=== PATIENT | male | born 1950 | race Caucasian/White ===

== ENCOUNTER 2023-05-15 06:54 | Outpatient (OUT) | payer MEDICARE, OTHER, SELFPAY ==
[2023-05-15 07:16] LABS: Basophils Absolute Auto 0.1 10^3/uL (0.0-0.1); Basophils Percent Auto 0.7 % (0.2-2.0); Eosinophils Absolute Auto 0.2 10^3/uL (0.0-0.7); Eosinophils Percent Auto 2.7 % (0.9-7.0); Hematocrit 51.1 % (42.0-54.0); Hemoglobin 16.5 g/dL (14.0-18.0); Immature Granulocytes Abs Auto 0.07 10^3/uL (0.00-0.03); Lymphocytes Absolute Auto 2.1 10^3/uL (1.2-3.8); Lymphocytes Percent Auto 29.3 % (20.5-60.0); Mean Corpuscular HGB Conc 32.3 g/dL (29.9-35.2); Mean Corpuscular Hemoglobin 29.5 pg (25.9-34.0); Mean Corpuscular Volume 91.4 fL (80.0-94.0); Mean Platelet Volume 9.8 fL (9.5-13.5); Monocytes Absolute Auto 0.7 10^3/uL (0.3-0.8); Monocytes Percent Auto 9.1 % (1.7-12.0); Neutrophils Absolute Auto 4.1 10^3/uL (1.4-6.5); Neutrophils Percent Auto 57.2 % (43.0-75.0); Platelet Count 157 10^3/uL (150-450); Red Blood Count 5.59 10^6/uL (4.70-6.10); Red Cell Distribution Width 12.9 % (11.0-15.0); White Blood Count 7.1 10^3/uL (4.0-11.0)
[2023-05-15 10:03] LABS: Alanine Aminotransferase 19 U/L (16-63); Albumin Level 3.5 g/dL (3.4-5.0); Alkaline Phosphatase 56 U/L (46-116); Anion Gap 14.1; Aspartate Amino Transferase 12 U/L (15-37); BUN Creatinine Ratio 18.8; Bilirubin Total 0.2 mg/dL (0.2-1.0); Calcium 8.7 mg/dL (8.5-10.1); Carbon Dioxide 24.2 mmol/L (21.0-32.0); Chloride 104 mmol/L (98-107); Chol HDL Ratio 5.1; Cholesterol 162 mg/dL (<=200); Estimated GFR (African America 58 (>=60); Estimated GFR (Non-African Ame 48 (>=60); Globulin 3.4 g/dL; Glucose 124 mg/dL (74-106); HDL Cholesterol 32 mg/dL (40-60); Potassium 4.3 mmol/L (3.5-5.1); Sodium 138 mmol/L (136-145); Total Protein 6.9 g/dL (6.4-8.2); Triglycerides 129 mg/dL (<=150); VLDL CHOLESTEROL 25.8 mg/dL
== END 2023-05-15 06:55 | disposition home or self-care (01) ==
LOC: LAB 07:01
PROVIDERS: PCP Family Medicine; Visit Provider Family Medicine
DX: I73.9 Peripheral vascular disease, unspecified (principal); E78.5 Hyperlipidemia, unspecified; I11.0 Hypertensive heart disease with heart failure; I50.30 Unspecified diastolic (congestive) heart failure
CPT/HCPCS: 36415; 80053; 80061; 83880; 85025

== ENCOUNTER 2023-05-27 13:38 | Outpatient (OUT) | payer MEDICARE, OTHER, SELFPAY ==
--- NOTE | 2023-05-27 15:21 | PM.CN ---
Consult Note: HPI Data of Consult Patient: new to practice Consult date: 05/27/23 Requesting Physician: Urvashi Rawls MD Primary Care Provider: Jaron Chester MD Consult Narrative Reason for consult: Low back pain, bilateral lower extremity pain and weakness Narrative: this is a pleasant 73-year-old gentleman who presents for evaluation. He notes long-standing low back pain that is ongoing for several years, as well as increasing pain and weakness that radiates into his bilateral lower extremity. He underwent a CT scan of the lumbar spine, which is significant for multiple levels of moderate to severe stenosis, particularly at L2-L3, L4-L5, and L5-S1. There are multiple levels of moderate to severe degenerative disc disease and facet arthropathy noted. He engages in a course of provider directed home exercises, which she has completed for greater than three months. He has tried various medications, including Tylenol and gabapentin for over three months, but this has not provided much relief. 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 He denies adverse medication side effects or loss of bowel or bladder control. cc:: CC: Urvashi Rawls MD Review of Systems ROS Status of ROS 10 or more systems reviewed and unremarkable except as noted in history and below Exam Constitutional Common normals: no apparent distress, oriented x3 and healthy appearing Respiratory Common normals: normal respiratory effort Effort & inspection: able to speak in complete sentences Back & Pelvis Other: tenderness to palpation through out the lumbar spine and paraspinal musculature. Pain is elicited with flexion, extension, and lateral rotation of the lumbar spine. Facet loading maneuvers are positive bilaterally. Strength noted to be unremarkable throughout the bilateral lower extremities except for decreased strength rated at four out of five in the bilateral quadriceps, anterior tibialis. Sensation noted to be unremarkable throughout the bilateral lower extremities except for dysesthesia on the bilateral L2, L3, L4, L5 dermatomal distributions. Coordination remains intact. Gait remains nonantalgic. Extremity Common normals: normal to inspection Neuro Common normals: oriented x3, CN's II-XII intact bilaterally and no focal motor deficits Psych Common normals: mental status grossly normal and cooperative Assessment and Plan Assessment and Plan (1) Lumbar stenosis with neurogenic claudication: (2) Lumbar spondylosis: Plan this is a pleasant 73-year-old gentleman who presents for evaluation. He has failed physical and medical modalities, as listed above. Imaging was reviewed, as noted above. She describes quite classic neurogenic claudication, and his woorkup for vascular claudication has thus far been negative. At this point, given his symptomatology and imaging findings, it is prudent to attempt bilateral L5 transforaminal epidural steroid injections. Depending on his response, he may even benefit from bilateral L2-L3 transforaminal epidural steroid injections. He is in agreement with this plan. He may be a candidate for lumbar medial branch blocks at some point in the future. Medications were reviewed, and no changes were made at this time. He will follow-up after the procedure is completed.
== END 2023-05-27 13:39 | disposition home or self-care (01) ==
LOC: PM 13:38
PROVIDERS: PCP Family Medicine; Visit Provider Anesthesiology
DX: M47.816 Spondylosis without myelopathy or radiculopathy, lumbar region (principal); M48.062 Spinal stenosis, lumbar region with neurogenic claudication; M54.50 Low back pain, unspecified
CPT/HCPCS: G0463

== ENCOUNTER 2023-05-28 12:39 | Outpatient (OUT) | payer MEDICARE, OTHER, SELFPAY ==
--- NOTE | 2023-05-28 14:06 | CA_ITS ---
[facility] Test Date: 2023-05-28 Pat Name: MOUSTAPHA MAC Department: Room: - Gender: Male [employer] Machine: : 1950 Requested By: [id number] Order Number: [id number] Reading MD: CÉSAR GOODWIN Interpretive Statements Monophasic doppler waveform in LLE PVR waveforms with delayed upstroke, blunted amplitude and loss of dicrotic notch in the LLE. Impression: - significant lower extremity arterial disease with mild hemodynamic impairment in the B/L lower extremities. (right SAGAR 0.89, left SAGAR 0.87) - abnormal response to exercise with left > right Electronically Signed On 05-29-2023 7:08:48 EDT by CÉSAR GOODWIN
--- NOTE | 2023-05-28 14:06 | CA_ITS ---
Patient: MOUSTAPHA MAC Exam Date: 05/28/2023 : 1950 Gender:M Ordering : MAJOR HARRISON Admission #: [id number] Family : DR Silvalas Henrik . Order #: [id number] CLICK HERE TO VIEW EXAM ECHOCARDIOGRAM REPORT PROCEDURE: CA ECHO DOPPLER COMPLETE INDICATIONS: Abnormal EKG, edema, pacemaker, hypertension COMPARISON: None. DESCRIPTION: COMPLETE ECHOCARDIOGRAM Real-time transthoracic echocardiography with 2D, M-mode, spectral and color flow Doppler performed. QUALITY: Technical quality was limited. LEFT VENTRICLE: Normal chamber size. Proximal septal hypertrophy (sigmoid septum). Normal systolic function. LV EF: Normal left ventricular ejection fraction, (>55%). DIASTOLIC: Normal diastolic function. ATRIAL SEPTUM: Visually appears intact. LEFT ATRIUM: Normal chamber size. RIGHT ATRIUM: Normal chamber size. RIGHT VENTRICLE: Normal chamber size. Normal systolic function. Pacer wire present. TRICUSPID VALVE: Normal mobility and thickness. No stenosis with trivial regurgitation. No evidence of pulmonary hypertension. RVSP 33 mmHg MITRAL VALVE: Normal mobility and thickness. No evidence of mitral valve stenosis. Mild mitral annular calcification. No mitral regurgitation. AORTIC VALVE: Normal trileaflet appearance. Mildly calcified aortic valve. Mildly diminished mobility. No evidence of aortic valve stenosis. DVI 0.7 No aortic regurgitation. AORTIC ROOT: Normal diameter and appearance. PULMONIC VALVE: Normal thickness and mobility. No stenosis. Trivial regurgitation. PERICARDIUM: No evidence of pericardial effusion. IVC: Collapses with inspirations. PLEURA: CONCLUSION: 1. Normal ventricular systolic function. LVEF is 55 to 60%. 2. No significant valvular dysfunction. 3. Normal right-sided pressures. 4. No pericardial effusion. Adult Echocardiography Procedure Report Left Ventricle LVEDD (3.7 - 5.6 cm): 4.62 cm LVESD (2.2 - 4.0 cm): 2.94 cm LVIVS thickness (0.6 - 1.2 cm): 1.47 cm LVPW thickness (0.5 - 1.0 cm): 1.15 cm e': 0.10 m/s E - e': 4.83 LVOT Max Gradient: 4.03 mm[Hg] LVOT Area (cm2): 1.00 m/s Peak Velocity (LVOT): 1.00 m/s Mean Velocity (LVOT): 0.74 m/s LVOT Diameter 2.60 cm Left Atrium Left Atrium Systolic Dimension: 3.92 cm Mitral Valve MV E to A Ratio: 0.61 Mitral Valve A-Wave Peak Velocity: 0.76 m/s Mitral Valve E-Wave Peak Velocity: 0.46 m/s Right Ventricle Aorta AO Root Diam: 3.96 cm Ascending Ao Diam: 3.19 cm Aortic Valve AoV Area (Peak Ole): 3.56 cm2, 3.56 cm2 AoV Area (VTI): 4.21 cm2, 4.21 cm2 Peak Velocity(Antegrade Flow): 1.50 m/s Peak Gradient(Antegrade Flow): 9.03 mm[Hg] Mean Velocity(Antegrade Flow): 0.96 m/s Mean Gradient(Antegrade Flow): 4.23 mm[Hg] Velocity Time Integral: 25.75 cm Tricuspid Valve Peak Velocity (Regurgitant Flow): 2.72 m/s Pulmonic Valve Peak Velocity: 0.82 m/s Peak Gradient: 2.91 mm[Hg], 2.49 mm[Hg] Right Atrium Right Atrium Systolic Pressure: 38.87 ml, 38.87 ml Dictated by: Shawn Madden M.D. on 05/30/2023 at 18:40 Approved by: Shawn Madden M.D. on 05/30/2023 at 18:43
== END 2023-05-28 12:40 | disposition home or self-care (01) ==
LOC: CARD 12:39
PROVIDERS: PCP Family Medicine; Visit Provider Internal Medicine Cardiovascular Disease
DX: I73.9 Peripheral vascular disease, unspecified (principal); R60.9 Edema, unspecified; R94.31 Abnormal electrocardiogram [ECG] [EKG]; I10 Essential (primary) hypertension
CPT/HCPCS: 93306; 93924

== ENCOUNTER 2023-06-10 09:31 | Day surgery (SDC) | payer MEDICARE, OTHER, SELFPAY ==
[2023-06-10 10:11] VITALS: BP 152/95; PULSE 77; RESP 14; TEMP 36.5; O2SAT 96
[2023-06-10] MEDS: IOHEXOL 240 MG/ML - 10 ML VIAL INJ (10:53)
[2023-06-10] MEDS: LIDOCAINE HCL 2% PF 100 MG/5 ML VIAL INJ (10:53)
[2023-06-10] MEDS: BUPIVACAINE HCL 0.25% PF 25 MG/10 ML VIAL INJ (10:53)
[2023-06-10] MEDS: TRIAMCINOLONE ACETONIDE 40 MG/ML VIAL INJ (10:54)
--- NOTE | 2023-06-10 10:56 | P.ON_ITS ---
Date of procedure: 06/10/23 Pre-op diagnosis: Lumbar stenosis with neurogenic claudication Post-op diagnosis: same Procedure: Procedure: Bilateral L5-S1 transforaminal epidural steroid injection Medications: Bupivacaine 0.25% 2cc, lidocaine 1% 1cc, kenalog 80mg The patient was seen and examined in the preoperative holding area.? Informed consent was obtained and placed on the chart.? Patient was brought to the medical procedure unit and placed in the prone position where a timeout was completed verifying the correct patient, procedure site, position, and planned special equipment using sterile aseptic technique.? Under direct fluoroscopic visualization a 25-gauge Quincke tipped spinal needle was advanced at level left L5-S1 to the designated neural foramen where contrast dye was injected to show adequate spread.? There was no evidence of vascular or adverse uptake.? Epidural spread was appreciated.? The above-mentioned injectate was then placed in a 1.5 mL aliquot preceded by negative aspiration.? The needle was removed. The same procedure, at the same level, was completed on the opposite side. ? Patient was taken to the postprocedural recovery area and monitored for an appropriate length of time before found suitable for discharge in the accompaniment of a r esponsible adult. Anesthesia: None Surgeon: Urvashi Rawls Pathology: none sent Condition: stable Disposition: no change
[2023-06-10 14:21] VITALS: BP 158/91; BP 159/89; PULSE 69; PULSE 72; RESP 18; O2SAT 95; O2SAT 96
== END 2023-06-10 11:06 | disposition home or self-care (01) ==
PROVIDERS: PCP Family Medicine; Visit Provider Anesthesiology
DX: M48.062 Spinal stenosis, lumbar region with neurogenic claudication (principal)
CPT/HCPCS: 64483; Q9966

== ENCOUNTER 2023-06-24 09:24 | Day surgery (SDC) | payer MEDICARE, OTHER, SELFPAY ==
[2023-06-24 10:13] VITALS: BP 149/94; PULSE 76; RESP 16; TEMP 36.4; O2SAT 95
[2023-06-24] MEDS: 0.9 % SODIUM CHLORIDE 10 ML INJ (10:47)
[2023-06-24] MEDS: BUPIVACAINE HCL 0.25% PF 25 MG/10 ML VIAL INJ (10:47)
[2023-06-24] MEDS: IOHEXOL 240 MG/ML - 10 ML VIAL INJ (10:48)
[2023-06-24] MEDS: DEXAMETHASONE SODIUM PHOSPHATE 10 MG/ML VIAL INJ (10:48)
[2023-06-24] MEDS: LIDOCAINE HCL 2% PF 100 MG/5 ML VIAL INJ (10:48)
--- NOTE | 2023-06-24 10:50 | W.PM.PROCNOT ---
Date of procedure: 06/24/23 Pre-op diagnosis: Lumbar stenosis with neurogenic claudication Post-op diagnosis: same as pre-op Procedure: Procedure: Bilateral L2-3 transforaminal epidural steroid injection Medications: Bupivacaine 0.25% 3cc, dexamethasone 10mg The patient was seen and examined in the preoperative holding area.? Informed consent was obtained and placed on the chart.? Patient was brought to the medical procedure unit and placed in the prone position where a timeout was completed verifying the correct patient, procedure site, position, and planned special equipment using sterile aseptic technique.? Under direct fluoroscopic visualization a 25-gauge Quincke tipped spinal needle was advanced at level left L2-3 to the designated neural foramen where contrast dye was injected to show adequate spread.? There was no evidence of vascular or adverse uptake.? Epidural spread was appreciated.? The above-mentioned injectate was then placed in a 1.5 mL aliquot preceded by negative aspiration.? The needle was removed. The same procedure, at the same level, was completed on the opposite side. ? Patient was taken to the postprocedural recovery area and monitored for an appropriate length of time before found suitable for discharge in the accompaniment of a responsible adult. Anesthesia: None Surgeon: Urvashi Rawls Pathology: none sent Condition: stable Disposition: no change
[2023-06-24 14:29] VITALS: BP 152/71; BP 176/90; PULSE 63; PULSE 64; RESP 16; RESP 20; O2SAT 96
== END 2023-06-24 10:57 | disposition home or self-care (01) ==
PROVIDERS: PCP Family Medicine; Visit Provider Anesthesiology
DX: M48.062 Spinal stenosis, lumbar region with neurogenic claudication (principal)
CPT/HCPCS: 64483; J1100; Q9966

== ENCOUNTER 2023-07-11 13:46 | Outpatient (OUT) | payer MEDICARE, OTHER, SELFPAY ==
--- NOTE | 2023-07-11 14:09 | PM.CN ---
Consult Note: HPI Data of Consult Patient: known to practice within the last 3 years Requesting Physician: Urvashi Rawls MD Primary Care Provider: Jaron Chester MD Consult Narrative Reason for consult: Bilateral L2-3 transforaminal epidural steroid injection f/u Narrative: Brian Oneal a pleasant 73 year old male presents for evaluation of chronic low back pain with radiculopathy. AVNI provided good pain relief 80-90%, patient still feels pain can be improved. cc:: CC: Urvashi Rawls MD Review of Systems ROS Status of ROS 10 or more systems reviewed and unremarkable except as noted in history and below Musculoskeletal Reports: back pain and joint pain PFSH PFS Medical History (Updated 07/11/23 @ 14:25 by Gisele Rodriguez NP) Surgical History Meds Home Medications and Allergies Home Medications Medication Instructions Recorded Confirmed Type amlodipine 5 mg tablet 5 mg PO .QD 05/27/23 06/24/23 History aspirin 81 mg tablet,delayed 81 mg PO .QD 05/27/23 06/24/23 History release atorvastatin 40 mg tablet 40 mg PO .QD 05/27/23 06/24/23 History gabapentin 100 mg capsule 100 mg PO .HS 05/27/23 06/24/23 History tizanidine 4 mg tablet 8 mg PO .HS 05/27/23 06/24/23 History Allergies Allergy/AdvReac Type Severity Reaction Status Date / Time Z PACK Allergy Uncoded 05/27/23 15:37 Exam Constitutional Documenting provider has reviewed patient's vital signs: yes Common normals: no apparent distress, oriented x3, healthy appearing, alert and well nourished General appearance: cooperative [facility] Common normals: normocephalic, hearing grossly normal bilaterally and moist oral mucous membranes Head and scalp: normocephalic Eye Common normals: PERRL Pupil: PERRL Neck & C-Spine Common normals: full ROM General: normal visual inspection Chest Common normals: inspection of chest normal Respiratory Common normals: normal respiratory effort, no retractions and no use of accessory muscles Back & Pelvis Thoracic spine/upper back: ROM limited Lumbar spine/lower back: ROM limited, pain with ROM (mild), straight leg raise negative bilaterally and other soft tissue findings (surgical scars) Sacroiliac joints: SI joints normal Other: radicular pain from right SIJ and radiates down lateral thigh to foot, intermittent. symptoms greatly improved since AVNI Extremity Common normals: normal to inspection, full ROM, no calf tenderness and no pedal edema Neuro Common normals: oriented x3, CN's II-XII intact bilaterally, moves all extremities, no focal motor deficits, no sensory deficits noted and deep tendon reflexes 2+ bilaterally Sensorium/orientation: alert Motor exam: strength 5/5 throughout and no movement abnormalities noted Psych Common normals: mental status grossly normal, thought process normal, cooperative, affect normal, speech normal and activity/motor behavior normal Speech: normal speech Thought process: normal thought process Results Additional Findings Additional findings: I have checked an OARRS report on this patient today and there are no aberrancies noted in the prescribing history.?? A drug screen was completed and reviewed within the last year, and if there has not been a drug screen completed we ordered one today to monitor higher risk, state monitored pain medication use. As part of providing excellent, safe, comprehensive care, the following was completed at our patient's visit: 1. A medication reconciliation and review to ensure accurate knowledge of current/active medications, including asking our patients to inform us about any [id number] medications or herbal remedies/nutritional supplements/alternative remedies. 2. A review to specifically ensure our patients have had annual screening for: elevated body mass index (BMI), tobacco use, screening for depression, and screening for unhealthy alcohol use. When screening is concerning, patients are provided with education and the specific recommendation to discuss the concerning health issue and treatment options with their primary care provider. AHMET 6% Assessment and Plan Assessment and Plan (1) Lumbar stenosis with neurogenic claudication: (2) Lumbar spondylosis: (3) Osteoarthritis: Plan AVNI provided good pain relief 80-90%, patient still feels pain can be improved. Based on physical exam would not benefit from lumbar RFAs at this time, negative for sacroiliitis. Will start mobic 7.5mg/day and continue tizanidine 8mg HS, continue gabapentin 100mg HS through PCP could benefit from dose increase. f/u 2 months
== END 2023-07-11 13:47 | disposition home or self-care (01) ==
LOC: PM 13:46
PROVIDERS: PCP Family Medicine; Visit Provider Anesthesiology
DX: M47.816 Spondylosis without myelopathy or radiculopathy, lumbar region (principal); M48.062 Spinal stenosis, lumbar region with neurogenic claudication; M19.90 Unspecified osteoarthritis, unspecified site
CPT/HCPCS: G0463

== ENCOUNTER 2023-09-05 13:47 | Outpatient (OUT) | payer MEDICARE, OTHER, SELFPAY ==
--- NOTE | 2023-09-05 14:17 | P.CN_ITS ---
Consult Note: HPI Data of Consult Patient: known to practice within the last 3 years Requesting Physician: Gisele Rodriguez NP Primary Care Provider: Jaron Chester MD Consult Narrative Reason for consult: f/u Narrative: Brian Oneal a pleasant 73 year old male presents for evaluation and management of chronic low back pain with radiculopathy. Today rating pain 2/10, pain intensifies to 7-8/10 at times. Patient has noticed the L5 TFESI wearing off as his pain is now getting worse at time as well as increased radiculopathy. Patient would like to discuss repeating L5 TFESI. cc:: CC: Gisele Rodriguez NP Review of Systems ROS Status of ROS 10 or more systems reviewed and unremarkable except as noted in history and below Musculoskeletal Reports: back pain PFSH PFSH Medical History (Updated 09/05/23 @ 14:30 by Gisele Rodriguez NP) Former smoker ?Z87.891 - Personal history of nicotine dependence (ICD-10) Glaucoma ?H40.9 - Unspecified glaucoma (ICD-10) H/O prostate cancer ?Z85.46 - Personal history of malignant neoplasm of prostate (ICD-10) Hypertension ?I10 - Essential (primary) hypertension (ICD-10) Irregular heart beat ?I49.9 - Cardiac arrhythmia, unspecified (ICD-10) Low back pain ?M54.50 - Low back pain, unspecified (ICD-10) Numbness and tingling ?R20.0 - Anesthesia of skin (ICD-10) ?R20.2 - Paresthesia of skin (ICD-10) Pacemaker ?Z95.0 - Presence of cardiac pacemaker (ICD-10) Surgical History H/O lumbosacral spine surgery ?Z98.890 - Other specified postprocedural states (ICD-10) History of appendectomy ?Z90.49 - Acquired absence of other specified parts of digestive tract (ICD- 10) Meds Home Medications and Allergies Home Medications Medication Instructions Recorded Confirmed Type amlodipine 5 mg tablet 5 mg PO .QD 05/27/23 06/24/23 History aspirin 81 mg tablet,delayed 81 mg PO .QD 05/27/23 06/24/23 History release atorvastatin 40 mg tablet 40 mg PO .QD 05/27/23 06/24/23 History gabapentin 100 mg capsule 100 mg PO .HS 05/27/23 06/24/23 History tizanidine 4 mg tablet 8 mg PO .HS 05/27/23 06/24/23 History Allergies Allergy/AdvReac Type Severity Reaction Status Date / Time Z PACK Allergy Uncoded 05/27/23 15:37 Exam Constitutional Documenting provider has reviewed patient's vital signs: yes Common normals: no apparent distress, oriented x3, healthy appearing, alert and well nourished General appearance: cooperative [facility]EN[facility] Common normals: normocephalic, hearing grossly normal bilaterally and moist oral mucous membranes Head and scalp: normocephalic Eye Common normals: PERRL Pupil: PERRL Neck & C-Spine Common normals: full ROM General: normal visual inspection Chest Common normals: inspection of chest normal Respiratory Common normals: normal respiratory effort, no retractions and no use of accessory muscles Back & Pelvis Thoracic spine/upper back: ROM limited Lumbar spine/lower back: ROM limited, pain with ROM (mild) and straight leg raise positive right Sacroiliac joints: SI joints normal Other: radicular pain intermittent positive facet loading left greater than rigvht Extremity Common normals: normal to inspection, full ROM, no calf tenderness and no pedal edema Neuro Common normals: oriented x3, CN's II-XII intact bilaterally, moves all extremities, no focal motor deficits, no sensory deficits noted and deep tendon reflexes 2+ bilaterally Sensorium/orientation: alert Motor exam: strength 5/5 throughout and no movement abnormalities noted Psych Common normals: mental status grossly normal, thought process normal, cooperative, affect normal, speech normal and activity/motor behavior normal Speech: normal speech Thought process: normal thought process Results Additional Findings Additional findings: I have checked an OARRS report on this patient today and there are no aberrancies noted in the prescribing history.?? A drug screen was completed and reviewed within the last year, and if there has not been a drug screen completed we ordered one today to monitor higher risk, state monitored pain medication use. As part of providing excellent, safe, comprehensive care, the following was completed at our patient's visit: 1. A medication reconciliation and review to ensure accurate knowledge of current/active medications, including asking our patients to inform us about any [id number] medications or herbal remedies/nutritional supplements/alternative remedies. 2. A review to specifically ensure our patients have had annual screening for: elevated body mass index (BMI), tobacco use, screening for depression, and screening for unhealthy alcohol use. When screening is concerning, patients are provided with education and the specific recommendation to discuss the concerning health issue and treatment options with their primary care provider. Assessment and Plan Assessment and Plan (1) Lumbar spondylosis: (2) Lumbar radiculopathy: (3) Osteoarthritis: Plan repeat L5 transforaminal epidural steroid injection under fluoroscopy as patient had greater than 50% pain relief for three months now wearing off continue current medications facet blocks and RFA discussed, education provided f/u 2 weeks after TFESI
== END 2023-09-05 13:48 | disposition home or self-care (01) ==
LOC: PM 13:47
PROVIDERS: PCP Family Medicine; Visit Provider Nurse Practitioner
DX: M47.26 Other spondylosis with radiculopathy, lumbar region (principal); M19.90 Unspecified osteoarthritis, unspecified site
CPT/HCPCS: G0463

== ENCOUNTER 2023-09-16 08:03 | Day surgery (SDC) | payer MEDICARE, OTHER, SELFPAY ==
[2023-09-16 08:45] VITALS: BP 165/90; PULSE 78; RESP 14; TEMP 36.3; O2SAT 96
[2023-09-16 09:36] VITALS: BP 128/69; BP 128/73; PULSE 70; PULSE 72; RESP 18; O2SAT 94; O2SAT 95
[2023-09-16] MEDS: 0.9 % SODIUM CHLORIDE 10 ML INJ (09:37)
[2023-09-16] MEDS: LIDOCAINE HCL 2% PF 100 MG/5 ML VIAL 3 ML INJ (09:37)
[2023-09-16] MEDS: BUPIVACAINE HCL 0.25% PF 25 MG/10 ML VIAL INJ (09:37)
[2023-09-16] MEDS: IOHEXOL 240 MG/ML - 10 ML VIAL 12 MG INJ (09:37)
[2023-09-16] MEDS: TRIAMCINOLONE ACETONIDE 40 MG/ML VIAL 80 MG INJ (09:37)
--- NOTE | 2023-09-16 09:39 | W.PM.PROCNOT ---
Date of procedure: 09/16/23 Pre-op diagnosis: Lumbar stenosis with neurogenic claudication Post-op diagnosis: same as pre-op Procedure: Procedure: Bilateral L5-S1 transforaminal epidural steroid injection Medications: Bupivacaine 0.25% 2cc, kenalog 80mg The patient was seen and examined in the preoperative holding area.? Informed consent was obtained and placed on the chart.? Patient was brought to the medical procedure unit and placed in the prone position where a timeout was completed verifying the correct patient, procedure site, position, and planned special equipment using sterile aseptic technique.? Under direct fluoroscopic visualization a 25-gauge Quincke tipped spinal needle was advanced at level left L5-S1 to the designated neural foramen where contrast dye was injected to show adequate spread.? There was no evidence of vascular or adverse uptake.? Epidural spread was appreciated.? The above-mentioned injectate was then placed in a 1.5 mL aliquot preceded by negative aspiration.? The needle was removed. The same procedure, at the same level, was completed on the opposite side. ? Patient was taken to the postprocedural recovery area and monitored for an appropriate length of time before found suitable for discharge in the accompaniment of a responsible adult. Anesthesia: Local Surgeon: Urvashi Rawls Pathology: none sent Condition: stable Disposition: no change
== END 2023-09-16 09:47 | disposition home or self-care (01) ==
PROVIDERS: PCP Family Medicine; Visit Provider Anesthesiology
DX: M48.062 Spinal stenosis, lumbar region with neurogenic claudication (principal)
CPT/HCPCS: 64483; Q9966

== ENCOUNTER 2023-09-25 10:59 | Outpatient (OUT) | payer MEDICARE, OTHER, SELFPAY ==
--- NOTE | 2023-09-25 11:21 | P.CN_ITS ---
Consult Note: HPI Data of Consult Patient: known to practice within the last 3 years Requesting Physician: Gisele Rodriguez NP Primary Care Provider: Jaron Chester MD Consult Narrative Reason for consult: f/u Narrative: Brian Oneal a pleasant 73 year old male presents for evaluation and management of low back pain. Patient recently underwel bilateral L5 TFESI with 80% ongoing relief in that area, continues to have back pain throughout lumbar spine. 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 Pain today 8/10, AHMET 18%. Patient would like to discuss additional injection therapy cc:: CC: Gisele Rodriguez NP Review of Systems ROS Status of ROS 10 or more systems reviewed and unremarkable except as noted in history and below Musculoskeletal Reports: back pain PFSH PFSH Medical History (Updated 09/05/23 @ 14:30 by Gisele Rodriguez NP) Former smoker ?Z87.891 - Personal history of nicotine dependence (ICD-10) Glaucoma ?H40.9 - Unspecified glaucoma (ICD-10) H/O prostate cancer ?Z85.46 - Personal history of malignant neoplasm of prostate (ICD-10) Hypertension ?I10 - Essential (primary) hypertension (ICD-10) Irregular heart beat ?I49.9 - Cardiac arrhythmia, unspecified (ICD-10) Low back pain ?M54.50 - Low back pain, unspecified (ICD-10) Numbness and tingling ?R20.0 - Anesthesia of skin (ICD-10) ?R20.2 - Paresthesia of skin (ICD-10) Pacemaker ?Z95.0 - Presence of cardiac pacemaker (ICD-10) Surgical History H/O lumbosacral spine surgery ?Z98.890 - Other specified postprocedural states (ICD-10) History of appendectomy ?Z90.49 - Acquired absence of other specified parts of digestive tract (ICD- 10) Meds Home Medications and Allergies Home Medications Medication Instructions Recorded Confirmed Type amlodipine 5 mg tablet 5 mg PO .QD 05/27/23 09/16/23 History atorvastatin 40 mg tablet 40 mg PO .QD 05/27/23 09/16/23 History gabapentin 100 mg capsule 100 mg PO .HS 05/27/23 09/16/23 History tizanidine 4 mg tablet 8 mg PO .HS 05/27/23 09/16/23 History Allergies Allergy/AdvReac Type Severity Reaction Status Date / Time Z PACK Allergy Uncoded 09/16/23 08:42 Exam Constitutional Documenting provider has reviewed patient's vital signs: yes Common normals: no apparent distress, oriented x3, healthy appearing, alert and well nourished General appearance: cooperative HENVA Common normals: normocephalic, hearing grossly normal bilaterally and moist oral mucous membranes Head and scalp: normocephalic Eye Common normals: PERRL Pupil: PERRL Neck & C-Spine Common normals: full ROM General: normal visual inspection Chest Common normals: inspection of chest normal Respiratory Common normals: normal respiratory effort, no retractions and no use of accessory muscles Back & Pelvis Thoracic spine/upper back: ROM limited Lumbar spine/lower back: ROM limited, pain with ROM (mild) and straight leg raise positive right Sacroiliac joints: SI joints normal Other: radicular pain intermittent positive facet loading left greater than right Extremity Common normals: normal to inspection, full ROM, no calf tenderness and no pedal edema Neuro Common normals: oriented x3, CN's II-XII intact bilaterally, moves all extremities, no focal motor deficits, no sensory deficits noted and deep tendon reflexes 2+ bilaterally Sensorium/orientation: alert Motor exam: strength 5/5 throughout and no movement abnormalities noted Psych Common normals: mental status grossly normal, thought process normal, cooperative, affect normal, speech normal and activity/motor behavior normal Speech: normal speech Thought process: normal thought process Assessment and Plan Assessment and Plan (1) Lumbar radiculopathy: (2) Lumbar stenosis with neurogenic claudication: (3) Lumbar spondylosis: (4) Osteoarthritis: Plan discussed spacing out additional ESIs, current AVNI providing 80% pain relief and functional improvement in low back but continues to have multilevel lumbar spine back pain and INC in bilateral legs declining NS referral increase gabapentin to 300mg HS for one month, next fill increase to 300mg BID patient to start monitoring BP at home continue HEP, 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
== END 2023-09-25 11:00 | disposition home or self-care (01) ==
LOC: PM 11:00
PROVIDERS: PCP Family Medicine; Visit Provider Nurse Practitioner
DX: M54.16 Radiculopathy, lumbar region (principal); M48.062 Spinal stenosis, lumbar region with neurogenic claudication; M47.816 Spondylosis without myelopathy or radiculopathy, lumbar region; M19.90 Unspecified osteoarthritis, unspecified site
CPT/HCPCS: G0463

== ENCOUNTER 2023-10-24 10:32 | Outpatient (OUT) | payer MEDICARE, OTHER, SELFPAY ==
--- NOTE | 2023-10-24 11:13 | P.CN_ITS ---
Consult Note: HPI Data of Consult Patient: new to practice Requesting Physician: Gisele Rodriguez NP Primary Care Provider: Jaron Chester MD Consult Narrative Reason for consult: f/u Narrative: Brian Oneal a pleasant 73 year old male presents for evaluation and management of low back pain. 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 Pain today 04/20, AHMET 24%. Patient has found benefit to gabapentin 300mg HS but is hesitant to take during the day due to concerns of drowsiness. cc:: CC: Gisele Rodriguez NP Review of Systems ROS Status of ROS 10 or more systems reviewed and unremark able except as noted in history and below Musculoskeletal Reports: back pain PFSH PFSH Medical History Low back pain ?M54.50 - Low back pain, unspecified (ICD-10) Glaucoma ?H40.9 - Unspecified glaucoma (ICD-10) H/O prostate cancer ?Z85.46 - Personal history of malignant neoplasm of prostate (ICD-10) Numbness and tingling ?R20.0 - Anesthesia of skin (ICD-10) ?R20.2 - Paresthesia of skin (ICD-10) Former smoker ?Z87.891 - Personal history of nicotine dependence (ICD-10) Irregular heart beat ?I49.9 - Cardiac arrhythmia, unspecified (ICD-10) Hypertension ?I10 - Essential (primary) hypertension (ICD-10) Pacemaker ?Z95.0 - Presence of cardiac pacemaker (ICD-10) Surgical History H/O lumbosacral spine surgery ?Z98.890 - Other specified postprocedural states (ICD-10) History of appendectomy ?Z90.49 - Acquired absence of other specified parts of digestive tract (ICD- 10) Meds Home Medications and Allergies Home Medications Medication Instructions Recorded Confirmed Type amlodipine 5 mg tablet 5 mg PO .QD 05/27/23 09/16/23 History atorvastatin 40 mg tablet 40 mg PO .QD 05/27/23 09/16/23 History gabapentin 100 mg capsule 100 mg PO .HS 05/27/23 09/16/23 History tizanidine 4 mg tablet 8 mg PO .HS 05/27/23 09/16/23 History Allergies Allergy/AdvReac Type Severity Reaction Status Date / Time Z PACK Allergy Uncoded 09/16/23 08:42 Exam Constitutional Documenting provider has reviewed patient's vital signs: yes Common normals: no apparent distress, oriented x3, healthy appearing, alert and well nourished General appearance: cooperative HENMT Common normals: normocephalic, hearing grossly normal bilaterally and moist oral mucous membranes Head and scalp: normocephalic Eye Common normals: PERRL Pupil: PERRL Neck & C-Spine Common normals: full ROM General: normal visual inspection Chest Common normals: inspection of chest normal Respiratory Common normals: normal respiratory effort, no retractions and no use of accessory muscles Back & Pelvis Thoracic spine/upper back: ROM limited Lumbar spine/lower back: ROM limited, pain with ROM (mild) and straight leg raise positive right Sacroiliac joints: SI joints normal Other: radicular pain intermittent positive facet loading left greater than right Extremity Common normals: normal to inspection, full ROM, no calf tenderness and no pedal edema Neuro Common normals: oriented x3, CN's II-XII intact bilaterally, moves all extremities, no focal motor deficits, no sensory deficits noted and deep tendon reflexes 2+ bilaterally Sensorium/orientation: alert Motor exam: strength 5/5 throughout and no movement abnormalities noted Psych Common normals: mental status grossly normal, thought process normal, cooperative, affect normal, speech normal and activity/motor behavior normal Speech: normal speech Thought process: normal thought process Assessment and Plan Assessment and Plan (1) Lumbar radiculopathy: (2) Osteoarthritis: (3) Lumbar spondylosis: Plan patient hesitant to take gabapentin 300mg BID as discussed previously continue gabapentin 300mg HS, start gabapentin 100mg daily-BID consider right L2-3 L5-S1 TFESI in the future, patient reporting 50% ongoing relief from previous lumbar AVNI
== END 2023-10-24 10:33 | disposition home or self-care (01) ==
LOC: PM 10:35
PROVIDERS: PCP Family Medicine; Visit Provider Nurse Practitioner
DX: M54.16 Radiculopathy, lumbar region (principal); M47.816 Spondylosis without myelopathy or radiculopathy, lumbar region; M19.90 Unspecified osteoarthritis, unspecified site
CPT/HCPCS: G0463

== ENCOUNTER 2023-11-20 09:33 | Outpatient (REF) | payer MEDICARE, OTHER, SELFPAY ==
--- OUTSIDE RECORDS SUMMARY | 2023-11-20 09:40 | XMS_ITS | CCD ---
Author Name Unknown Address [address] [place] [address] Organization [facility] Care Team Providers Care Business Administration Program Chair Name Role Phone MODESTO BECERRA Admitting Unavailable MODESTO BECERRA Attending Unavailable SELF, REFERRED Referring Unavailable ELLIOT CHESTER Primary Care Unavailable MODESTO BECERRA Consulting Unavailable CHANTALY ., DR ZARATE Primary Care Unavailable MODESTO BECERRA Attending Unavailable MODESTO BECERRA Admitting Unavailable ALONSO MASON Consulting Unavailable GAGANDEEP PAREDES Consulting Unavailable HOY ., DR ZARATE Primary Care Unavailable GAGANDEEP PAREDES Attending Unavailable GAGANDEEP PAREDES Admitting Unavailable HOY ., DR ZARATE Consulting Unavailable HOY ., DR ZARATE Attending Unavailable HOY ., DR ZARTAE Admitting Unavailable HOY ., DR ZARATE Primary Care Unavailable JCARLOSECK, DR CLIFTON Kang Consulting Unavailabl e NADERER, DR ELIZABETH Lee Consulting Unavailable POLICARO, RAJESH Consulting Unavailable GAGANDEEP PAREDES Consulting Unavailable HOY ., DR ZARATE Primary Care Unavailable GAGANDEEP PAREDES Attending Unavailable GAGANDEEP PAREDES Admitting Unavailable HOY ., DR ZARATE Primary Care Unavailable HOY ., DR ZARATE Attending Unavailable HOY ., DR ZARATE Admitting Unavailable HOY ., DR ZARATE Primary Care Unavailable HOY ., DR ZARATE Attending Unavailable HOY ., DR ZARATE Admpia Unavailable REINECK, DR CLIFTON Kang Consulting Unavailabl e REINECK, DR CLIFTON Kang Attending Unavailabl e REINECK, DR CLIFTON Kang Admitting Unavailabl e HOY ., DR ZARATE Primary Care Unavailable JIHANEBPIEDAD, DR CIERA Eric Consulting Unavailable GRECHNY .MARYAM Consulting Unavailabl e HOY ., DR ZARATE Consulting Unavailable HOY ., DR ZARATE Attending Unavailable HOY ., DR ZARATE Admitting Unavailable HOY ., DR ZARATE Primary Care Unavailable SUSAN KC Consulting Unavailable JATIN BRISCOE Consulting Unavailable EDGAR, DR CIERA Eric Consulting Unavailable ALPHONSE ., AYALA Consulting Unavailable HOY ., DR ZARATE Primary Care Unavailable HOY ., DR ZARATE Attending Unavailable HOY ., DR ZARATE Admitting Unavailable HOY ., DR ZARATE Consulting Unavailable HOY ., DR ZARATE Primary Care Unavailable HOY ., DR ZARATE Attending Unavailable HOY ., DR ZARATE Admitting Unavailable REGGIEGAGANDEEP AGUAYO Consulting Unavailable HOY ., DR ZARATE Primary Care Unavailable GAGANDEEP PAREDES Attending Unavailable REGGIE, GAGANDEEP Admitting Unavailable HOY ., DR ZARATE Consulting Unavailable HOY ., DR ZARATE Primary Care Unavailable HOY ., DR ZARATE Attending Unavailable HOY ., DR ZARATE Admitting Unavailable HOY ., DR ZARATE Consulting Unavailable HOY ., DR ZARATE Primary Care Unavailable HOY ., DR ZARATE Attending Unavailable HOY ., DR ZARATE Admitting Unavailable THELMA, RADU Attending Unavailable THELMA, RADU Referring Unavailable HOY, ELLIOT Referring Unavailable HOY, ELLIOT Referring Unavailable THELMA, RADU Referring Unavailable THELMA, RADU Referring Unavailable THELMA, RADU Attending Unavailable JOSE QUINONEZ Attending Unavailable THELMA, RADU Referring Unavailable MODESTO BECERRA Referring Unavailable HOLLY LERMA Attending Unavailable ALGHOMAJOR VILLAREAL Attending Unavailable MAJOR HARRISON Attending Unavailable MODESTO BECERRA Referring Unavailable Giedraitis , Andrius Marinelli Attending Unavailable Giedraitis , Andrius Vytgianna Attending Unavailable Giedraitis , Andrius Vytautclaritza Attending Unavailable Giedraitis , Andrius Vebenezerautclaritza Attending Unavailable Allergies Allergy Classification Reported Allergen(s) Allergy Type Date of Onset Reaction(s) Facility (2 sources) Azithromycin; Translations: [AZITHROMYCIN] Drug Allergy 2 [facility] Repository (2 sources) Azithromycin Drug Allergy 5 [facility] Repository (1 source) Ciprofloxacin Drug Allergy 3 [facility] Repository (1 source) ALLERGIES NOT ON FILE; Translations: [ALLERGIES NOT ON FILE] Propensity to adverse reactions (disorder) [facility] Repository Problems Active Problems Problem Classification Problem Date Documented Da te Episodic/Chronic Calculus of urinary tract (1 source) Personal history of urinary calculi; Translations: [PERSONAL HISTORY OF URINARY CALCULI] Onset: 12-20-2022 Episodic Cancer of prostate (1 source) Malignant neoplasm of prostate; Translations: [MALIGNANT NEOPLASM OF PROSTATE] Onset: 12-20-2022 Chronic Cardiac dysrhythmias (2 sources) Sick sinus syndrome Onset: 11-07-2022 Chronic Coagulation and hemorrhagic disorders (1 source) Thrombocytopenia, unspecified; Translations: [THROMBOCYTOPENIA UNSPECIFIED] Onset: 10-15-2022 Chronic Conduction disorders (6 sources) Encounter for adjustment and management of automatic implantable cardiac defibrillator; Translations: [ENC ADJ AND MGMT AUTO IMPL CARD DEFIB] Onset: 03-23-2022 Chronic Disorders of lipid metabolism (2 sources) Hyperlipidemia, unspecified; Translations: [Hyperlipidemia, unspecified] Onset: 08-27-2023 Chronic Essential hypertension (1 source) Essential (primary) hypertension; Translations: [ESSENTIAL PRIMARY HYPERTENSION] Onset: 12-20-2022 Chronic Nutritional deficiencies (1 source) Mild protein-calorie malnutrition; Translations: [MILD PROTEIN-CALORIE MALNUTRITION] Onset: 03-19-2022 Chronic Osteoarthritis (1 source) Unspecified osteoarthritis, unspecified site; Translations: [UNSPECIFIED OSTEOARTHRITIS UNS SITE] Onset: 03-19-2022 Chronic Other lower respiratory disease (1 source) Personal history of pneumonia (recurrent); Translations: [PERSONAL HX OF PNEUMONIA RECURRENT] Onset: 12-20-2022 Episodic Other nervous system disorders (2 sources) Other chronic pain; Translations: [Other chronic pain] Onset: 03-26-2023 Chronic Other non-traumatic joint disorders (2 sources) Osteophyte, vertebrae; Translations: [Osteophyte, vertebrae] Onset: 03-15-2023 Chronic Other nutritional; endocrine; and metabolic disorders (1 source) Morbid (severe) obesity due to excess calories; Translations: [MORBID SEVERE OBES D/T EXCESS DIMITRIOS] Onset: 03-19-2022 Chronic Other nutritional; endocrine; and metabolic disorders (1 source) Body mass index (BMI) 36.0-36.9, adult; Translations: [BODY MASS INDEX BMI 36.0-36.9 ADULT] Onset: 03-19-2022 Chronic Peripheral and visceral atherosclerosis (2 sources) Peripheral vascular disease, unspecified; Translations: [Peripheral vascular disease, unspecified] Onset: 03-26-2023 Chronic Residual codes; unclassified (5 sources) Obstructive sleep apnea (adult) (pediatric); Translations: [OBSTRUCTIVE SLEEP APNEA] Onset: 03-19-2022 Chronic Residual codes; unclassified (1 source) Personal history of other specified conditions; Translations: [PERSONAL HISTORY OTH SPEC CONDITION] Onset: 12-20-2022 Episodic Spondylosis; intervertebral disc disorders; other back problems (1 source) Other intervertebral disc degeneration, lumbar region; Translations: [OTH IV DISC DEGEN LUMBAR REGION] Onset: 12-20-2022 Chronic Spondylosis; intervertebral disc disorders; other back problems (1 source) Spinal stenosis, lumbar region without neurogenic claudication; Translations: [SPINAL STENOSIS LUMBAR REGION NO NC] Onset: 12-20-2022 Episodic Substance-related disorders (1 source) Nicotine dependence, cigarettes, uncomplicated; Translations: [NICOTINE DEPEND CIGARETTES UNCOMP] Onset: 03-19-2022 Chronic Unclassified (3 sources) COUGH, UNSPECIFIED; Translations: [COUGH, UNSPECIFIED] Onset: 05-23-2022 Unclassified (4 sources) CONTACT W/AND (SUSP) EXPOS COVID-19; Translations: [CONTACT W/AND (SUSP) EXPOS COVID-19] Onset: 10-15-2022 Unclassified (3 sources) OTHER LOW BACK PAIN; Translations: [OTHER LOW BACK PAIN] Onset: 12-28-2022 Unclassified (2 sources) LOW BACK PAIN, UNSPECIFIED; Translations: [LOW BACK PAIN, UNSPECIFIED] Onset: 12-20-2022 Unclassified (1 source) Low back pain, unspecified; Translations: [Low back pain, unspecified] Onset: 03-26-2023 Viral infection (4 sources) COVID-19; Translations: [COVID-19] Onset: 05-22-2022 Past or Other Problems Problem Classification Problem Date Documented Date Episodic/Chronic Acute bronchitis (4 sources) Acute bronchitis, unspecified; Translations: [ACUTE BRONCHITIS UNSPECIFIED] Onset: 09-10-2022 Episodic Cancer of prostate (1 source) Personal history of malignant neoplasm of prostate; Translations: [PERSONAL HX MALIG NEOPLASM PROSTATE] Onset: 10-15-2022 Episodic Cardiac dysrhythmias (1 source) Bradycardia, unspecified; Translations: [BRADYCARDIA UNSPECIFIED] Onset: 03-19-2022 Episodic Fluid and electrolyte disorders (1 source) Hyperkalemia; Translations: [HYPERKALEMIA] Onset: 03-19-2022 Episodic Immunizations and screening for infectious disease (1 source) Encounter for immunization; Translations: [ENCOUNTER FOR IMMUNIZATION] Onset: 05-23-2022 Episodic Intestinal infection (3 sources) Infectious gastroenteritis and colitis, unspecified; Translations: [Enterocolitis due to Clostridium difficile, not specified as recurrent] Onset: 10-01-2022 Episodic Other aftercare (1 source) Other terminal worker (current) 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 therapy; Translations: [OTH SNF CURRENT DRUG THERAPY] Onset: 03-19-2022 Episodic Pneumonia (except that caused by tuberculosis or sexually transmitted disease) (1 source) Pneumonia, unspecified organism; Translations: [PNEUMONIA UNSPECIFIED ORGANISM] Onset: 03-19-2022 Episodic Respiratory failure; insufficiency; arrest (adult) (1 source) Acute respiratory failure with hypoxia; Translations: [ACUTE RESPIRATORY FAIL W/HYPOXIA] Onset: 03-19-2022 Episodic Syncope (3 sources) Syncope and collapse; Translations: [SYNCOPE AND COLLAPSE] Onset: 03-13-2022 Episodic Unclassified (1 source) CONTACT W/AND (SUSP) EXPOS COVID-19; Translations: [CONTACT W/AND (SUSP) EXPOS COVID-19] Onset: 01-16-2023 Unclassified (1 source) OTHER LOW BACK PAIN; Translations: [OTHER LOW BACK PAIN] Onset: 12-27-2022 Unclassified (2 sources) LOW BACK PAIN, UNSPECIFIED; Translations: [LOW BACK PAIN, UNSPECIFIED] Onset: 12-18-2022 Unclassified (1 source) COUGH, UNSPECIFIED; Translations: [COUGH, UNSPECIFIED] Onset: 05-21-2022 Results Test Name Value Interpretation Reference Range Facility Office Visiton 05-13-2023 Follow-up visit [id number] Wayne Oneal 1950 M Date Provider Department Center 05/13/2023 Kain-MAJOR HARRISON Family History Problem Relation Age of Onset Coronary artery disease Mother Family Status - Relation Status Age at Mother Level of Service:06920 SD OFFICE/OUTPATIENT ESTABLISHED MOD MDM 30-39 MIN Normal [facility] Orders Onlyon 05-13-2023 Orders Only [id number] Wayne Oneal A 1950 M Date Provider Department Center 05/13/2023 Royal-BRAYAN AU RMAAKRISH[facility] Family History Problem Relation Age of Onset Coronary artery disease Mother Family Status - Relation Status Age at Mother [facility] 29on 05-08-2023 29 Addended by: LEANA HENNING on: 05/09/2023 01:46 PM Modules accepted: Orders [facility] Consulton 05-08-2023 Consult [id number] Wayne Oneal A 1950 M Date Provider Department Center 05/08/2023 384-JOSE QUINONEZ HVCVASENDO [facility] Family History Problem Relation Age of Onset Coronary artery disease Mother Family Status - Relation Status Age at Mother Level of Service:07151 SD OFFICE/OUTPATIENT NEW MODERATE MDM 45-59 MINUTES Reason for Visit and Comments: New Patient [632] - Numbness in bilateral legs [facility] Follow-Upon 04-09-2023 Follow-Up [id number] Wayne Oneal A 1950 Date Provider Department Center 04/09/2023 [id number] [facility] Second Fl Family History Problem Relation Age of Onset Coronary artery disease Mother Family Status - Relation Status Age at Mother Level of Service:73584 SD OFFICE/OUTPATIENT ESTABLISHED LOW MDM 20-29 MIN Reason for Visit and Comments: Follow-up [[id number]] - follow up s/p SAGAR, XR; When patient bends over it tends to pull his back muscles and when he gets back up he is in pain. Walking a long distance he is in lots of pain. [facility] 36on 04-02-2023 36 Pt was called and scheduled a follow up with Dr. Chacon to review results. [facility] 36 Brian is asking fo r an answer to left lower back pain. Had the US done and is not having any relief in his back. [facility] Telephoneon 04-02-2023 Telephone [id number] Wayne Oneal A 1950 Date Provider Department Center 04/02/2023 [id number] VAZQUEZ [facility] Second Fl Family History Problem Relation Age of Onset Coronary artery disease Mother Family Status - Relation Status Age at Mother Normal [facility] Consulton 03-26-2023 Consult [id number] Wayne Oneal 1950 M Date Provider Department Center 03/26/2023 RADU QUEVEDO [facility] Second Fl Family History Problem Relation Age of Onset Coronary artery disease Mother Family Status - Relation Status Age at Mother Level of Service:66588 SD OFFICE/OUTPATIENT NEW MODERATE MDM 45-59 MINUTES Reason for Visit and Comments: Consult [484] - Pt is here for a CO visit for Osteophyte. Normal [facility] MR LUMBAR SPINE W AND WO CON TRASTon 02-27-2023 MR LUMBAR SPINE W AND WO CONTRAST MR LUMBAR SPINE W AND WO CONTRAST 02/27/2023 11:27 AM CLINICAL INDICATIONS: Abnormal paraspinal signal on noncontrast MRI evaluation. CONTRAST: 20 mL of gadolinium intravenously COMPARISON: 01/31/2023 FINDINGS: There is heterogeneous signal in the paraspinal soft tissues on the left at L2-L3. Superior is be related to new bone formation and disc bulging this region. T1 images demonstrate prominently decreased signal with some enhancement on postcontrast images degenerative changes extend to the subarticular region out spinal stenosis. No other area of abnormal postcontrast enhancement is evident within the paraspinal bone marrow signal is normal on postcontrast images. No abnormal vertebral disc centrally. There is now appears patent with no abnormal postcontrast Degenerative changes are again noted throughout the lumbar spine with mild narrowing of the central canal as detailed on previous study IMPRESSION: Paraspinal irregularity on the left at L2-L3 appears to be related to degenerative osteophyte formation with some surrounding enhancement which may reflect reactive change or edema. No spinal stenosis or abnormal intrathecal enhancement present. Please correlate with previous results Electronically signed: Asher Tomlinson. Normal [facility] 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: Order Comment: Order in EPIC MR LUMBAR SPINE WO CONTRASTo n 01-31-2023 MR LUMBAR SPINE WO CONTRAST MR LUMBAR SPINE WO CONTRAST 01/31/2023 1:01 PM CLINICAL INDICATIONS: Low back pain left of midline Technique: Multiplanar multisequential noncontrast MRI imaging of lumbar spine is performed. 5 lumbar type vertebral bodies are assumed on this exam with no prior comparison. COMPARISON: None. FINDINGS: Vertebral body heights and alignment are fairly well-maintained. Moderate degenerative disc changes present at most levels greatest superiorly. T1-weighted sagittal images show moderate narrowing of right L4-5 and L5-S1 neural foramina. Mild narrowing of left L4-5 neural foramen noted. Bone marrow signal intensity is within normal limits. Conus medullaris shows normal location and is not enlarged. Hemangiomas present at T12. There is some high signal within paraspinous musculature at L3 measuring 2.9 cm by approximately 18 mm. Visualized aorta does not appear dilated. Axial images are obtained throughout. T12-L1 mild central canal narrowing noted due to broad-based disc bulge greater to the right of midline. Mild facet degenerative change noted. At L1-2 there is mild retrolisthesis and broad-based bulging of the disc which causes mild central canal narrowing. Moderate facet degenerative change and ligamentum flavum hypertrophy present. At L2-3 Central canal is patent. Moderate facet degenerative change ligamentum flavum hypertrophy noted. Left paraspinous high signal again noted. At L3-4 Central canal is patent. Left paraspinous high signal noted. Moderate facet degenerative change present. L4-5 Central canal is patent. Moderate facet degenerative change noted. At L5-S1 Central canal is patent. Marked right facet degenerative change present. IMPRESSION: 1. Only mild central canal narrowing noted. 2. Increased signal within left paraspinous soft tissues from L2 to L3. This is probably asymmetric fat with lower signal than intrathecal fluid. Area does however show increased signal on the sagittal STIR images. Post contrast imaging recommended for confirmation. I have marked this exam is significant notifying radiology staff to both telephone and fax result to the appropriate caregiver. Electronically signed: Renu Han. Normal [facility] 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: Order Comment: Order in EPIC NURSNOTEon 01-31-2023 NURSNOTE Patient tolerated well Normal [facility] NURSNOTE 1325 Patient arrived Biotronik at bedside placed patient Automatic MRI mode DDO paced at 70bpm. Patient on Monitor,continuous ECG, BP q 15min and SPO2 Normal [facility] NURSNOTE Exam completed and patient showed original settings after away from gantry. Normal [facility] Covid-19 PCR (CVDTB)on SARS-CoV-2 (COVID-19) RNA VENESSA+probe Ql (Unsp spec) Not detected Normal NOT DETECTED [facility] 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: Result Comment: When diagnostic testing is negative, the possibility of a false negative should be considered in the context of a patient's recent exposures and the presence of clinical signs and symptoms consistent with SARS-CoV-2. This test is not yet approved or cleared by the [place] FDA. When there are no FDA-approved or cleared tests available, and other criteria are met, FDA can make tests available under an emergency access mechanism called an Emergency Use Authorization (EUA). The EUA for this test is supported by the [place] of Health and Human Service's declaration that circumstances exist to justify the emergency use of in vitro diagnostics for the detection and/or diagnosis of the virus that causes COVID-19. This EUA will remain in effect for the duration of the COVID-19 declaration justifying emergency of IVDs, unless it is terminated or revoked by the FDA (after which the test may no longer be used). Performed By: #### B MP, BNP #### [facility] [address] [place] [address] Dr. Leni Hamlin INFLUENZA A AND B AGon 01[facility] [facility] Normal [facility] 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: Result Comment: Nega tive for Flu A protein angiten. Infection due to Flu A cannot be ruled out. Flu A angiten in the sample may be below the detection limit of the test. Performed By: #### C RP #### [facility] [address] [place] [address] Dr. Leni Ham[facility] Normal [facility] 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: Result Comment: Nega tive for Flu B protein antigen. Infection due to Flu B cannot be ruled out. Flu B antigen in the sample may be below the detection limit of the test. Performed By: #### C RP #### [facility] [address] [place] [address] Dr. Leni Hamlin INFLUENZA A AG Negative Normal NEGATIVE SEE COMMENT [facility] 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: Performed By: #### C RP #### [facility] [address] [place] [address] Dr. Leni Hamlin INFLUENZA B AG Negative Normal NEGATIVE SEE COMMENT [facility] 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: Performed By: #### C #### [facility] [address] LSPINE WO CONon 3 CT LSPINE WO CON EXAMINATION: CT LSPINE WO CON, 12/18/2022 3:26 PM EST HISTORY: Low back pain ; bilateral thigh pain; no known injury COMPARISON: CT abdomen pelvis 09/29/2022 TECHNIQUE: CT of the lumbar spine was performed without IV contrast. CT dose reduction technique was used, including Automated Exposure Control. FINDINGS: PARASPINAL AREA: Normal with no visible mass. BONES: 2 mm retrolisthesis of L1 on 2. No fracture or bone lesion. Mild-moderate degenerative facet arthropathy L3-4 through L5-S1. CERVICAL DISC LEVELS: 12-L1: Early degenerative disc disease is present without focal protrusion or neural impingement. L1-L2: Moderate central canal and bilateral foramen narrowing. Mild diffuse disc bulging and mild disc height reduction. Mild degenerative facet arthropathy. L2-L3: Moderate central canal and mild bilateral foramen narrowing. Mild grade 1 retrolisthesis of L2 on 3 and mild posterior disc bulging. Mild disc height reduction and mild degenerative facet arthropathy bilaterally. L3-L4: Mild central canal and bilateral foramen narrowing. Mild diffuse disc bulging and mild degenerative facet arthropathy. L4-L5: Mild/moderate central canal and moderate-marked bilateral foramen narrowing. Posterior disc-osteophyte complex, mild disc height reduction, and moderate degenerative facet arthropathy. L5-S1: Mild central canal and marked right foramen narrowing. Mild left foramen narrowing. Large right paracentral/foramen disc-osteophyte complex, marked disc height reduction on right side, and moderate degenerative facet arthropathy. IMPRESSION: 1. Multilevel degenerative disc disease and facet arthropathy resulting in central canal and foramen narrowing. Moderate or greater foramen and central canal narrowing at several levels. Please see details above. 2. No appreciable acute abnormality. Electronically authenticated by: CIERA HERNÁNDEZ Date: 2022-12-18 15:56 Normal [facility] Office Visiton 11-07-2022 Follow-up visit [id number] Wayne Oneal 1950 Date Provider Department Center 11/07/2022 HOLLY HILARIO [facility] Family History Problem Relation Age of Onset Coronary artery disease Mother Family Status - Relation Status Age at Mother Level of Service:53725 SD OFFICE/OUTPATIENT ESTABLISHED [facility] 10-19 MIN Reason for Visit and Comments: sick sinus syndrome [Other] sinus bradycardia [Other] Normal [facility] CBC AUTO DIFFon 10-03-2022 BASO # 0.1 103/ul Normal 0.0-0.1 [facility] 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: Performed By: #### B MP, BNP #### [facility] [address] [place] [address] Dr. Leni Hamlin Basophils/100 WBC (Bld) 0.5 % Normal 0.2-2.0 [facility] 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: Performed By: #### B MP, BNP #### [facility] [address] [place] [address] Dr. Leni Hamlin EO # 0.3 103/ul Normal 0.0-0.7 [facility] 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: Performed By: #### B MP, BNP #### [facility] [address] [place] [address] Dr. Leni Hamlin Eosinophils/100 WBC (Bld) 2.2 % Normal 0.9-7.0 [facility] 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: Performed By: #### B MP, BNP #### [facility] [address] [place] [address] Dr. Leni Hamlin Erythrocyte distribution width (RBC) [Ratio] 13.3 % Normal 11.0-15.0 [facility] 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: Performed By: #### B MP, BNP #### [facility] [address] [place] [address] Dr. Leni Hamlin Hematocrit (Bld) [Volume fraction] 46.9 % Normal 42.0-54.0 [facility] 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: Performed By: #### B MP, BNP #### [facility] [address] [place] [address] Dr. Leni Hamlin Hemoglobin (Bld) [Mass/Vol] 15.3 g/dL Normal 14.0-18.0 [facility] 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: Performed By: #### B MP, BNP #### [facility] [address] [address] [address] Leni Hamlin IG # 0.18 10e3/ul Critically high 0.00-0.03 [facility] 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: Performed By: #### B MP, BNP #### [facility] [address] [address] [address] Leni Hamlin IG % 1.3 % Critically high 0.0-0.5 [facility] [facility] 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: Performed By: #### B MP, BNP #### [facility] [address] [address] [address] Leni Hamlin LYMPH # 1.9 103/ul Normal 1.2-3.8 [facility] 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: Performed By: #### B MP, BNP #### [facility] [address] [place] [address] Dr. Leni Hamlin Lymphocytes/100 WBC (Bld) 13.6 % Critically low 20.5-60.0 [facility] 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: Performed By: #### B MP, BNP #### [facility] [address] [place] [address] Dr. Leni Hamlin MANUAL DIFF REQ NO Normal [facility] 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: Performed By: #### B MP, BNP #### [facility] [address] [place] [address] Dr. Leni Hamlin MCH (RBC) [Entitic mass] 29.2 pg Normal 25.9-34.0 [facility] 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: Performed By: #### B MP, BNP #### [facility] [address] [place] [address] Dr. Leni Hamlin MCHC (RBC) [Mass/Vol] 32.6 g/dL Normal 29.9-35.2 [facility] 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: Performed By: #### B MP, BNP #### [facility] [address] [place] [address] Dr. Leni Hamlin MCV (RBC) [Entitic vol] 89.5 fL Normal 80.0-94.0 [facility] 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: Performed By: #### B MP, BNP #### [facility] [address] [address] [address] Leni Hamlin MONO # 0.9 103/ul Critically high 0.3-0.8 [facility] 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: Performed By: #### B MP, BNP #### [facility] [address] [address] [address] Leni Hamlin Monocytes/100 WBC (Bld) 6.6 % Normal 1.7-12.0 [facility] 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: Performed By: #### B MP, BNP #### [facility] [address] [address] [address] Leni Hamlin NEUT # 10.4 103/ul Critically high 1.4-6.5 [facility] 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: Performed By: #### B MP, BNP #### [facility] [address] [place] [address] Dr. Leni Hamlin Neutrophils/100 WBC (Bld) 75.8 % Critically high 43.0-75.0 [facility] 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: Performed By: #### B MP, BNP #### [facility] [address] [place] [address] Dr. Leni Hamlin Platelet mean volume (Bld) [Entitic vol] 10.6 fL Normal 9.5-13.5 [facility] 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: Performed By: #### B MP, BNP #### [facility] [address] [address] [address] Leni Hamlin PLT 143 103/ul Critically low 150-450 [facility] 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: Performed By: #### B MP, BNP #### [facility] [address] [place] [address] Dr. Leni Hamlin RBC 5.24 106/ul Normal 4.70-6.10 [facility] 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: Performed By: #### B MP, BNP #### [facility] [address] [place] [address] Dr. Leni Hamlin WBC 13.7 103/ul Critically high 4.0-11.0 [facility] 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: Performed By: #### B MP, BNP #### [facility] [address] [address] [address] Leni Hamlin CRPon 10-03-2022 CRP 7.6 mg/dL Critically high <=1.0 [facility] 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: Performed By: #### C MP, CRP #### [facility] [address] [address] [address] Leni Hamlin PROF 14(COMP METB)on 022 Albumin [Mass/Vol] 2.5 g/dL Critically low 3.4-5.0 [facility] 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: Performed By: #### C MP, CRP #### [facility] [address] [address] [address] Leni Hamlin Albumin/Globulin [Mass ratio] 0.7 {ratio} Normal [facility] 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: Performed By: #### C MP, CRP #### [facility] [address] [address] [address] Leni Hamlin ALP [Catalytic activity/Vol] 54 U/L Normal 46-116 [facility] 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: Performed By: #### C MP, CRP #### [facility] [address] [address] [address] Leni Hamlin ALT [Catalytic activity/Vol] 11 U/L Critically low 16-63 [facility] 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: Performed By: #### C MP, CRP #### [facility] [address] [address] [address] Leni Hamlin Anion gap [Moles/Vol] 8.8 mmol/L Normal [facility] 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: Performed By: #### C MP, CRP #### [facility] [address] [address] [address] Leni Hamlin AST [Catalytic activity/Vol] 9 U/L Critically low 15-37 [facility] 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: Performed By: #### C MP, CRP #### [facility] [address] [address] [address] Leni Hamlin Bilirubin [Mass/Vol] 0.3 mg/dL Normal 0.2-1.0 [facility] 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: Performed By: #### C MP, CRP #### [facility] [address] [place] [address] Dr. Leni Hamlin Calcium [Mass/Vol] 8.6 mg/dL Normal 8.5-10.1 [facility] 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: Performed By: #### C MP, CRP #### [facility] [address] [place] [address] Dr. Leni Hamlin Chloride [Moles/Vol] 103 mmol/L Normal 98-107 [facility] 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: Performed By: #### C MP, CRP #### [facility] [address] [place] [address] Dr. Leni Hamlin CO2 [Moles/Vol] 29.2 mmol/L Normal 21.0-32.0 [facility] 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: Performed By: #### C MP, CRP #### [facility] [address] [place] [address] Dr. Leni Hamlin Creatinine [Mass/Vol] 1.20 mg/dL Normal 0.70-1.30 [facility] 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: Performed By: #### C MP, CRP #### [facility] [address] [place] [address] Dr. Leni Hamlin EGFR-AF [place]IZ[place] >60 Normal >=60 [facility] 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: Performed By: #### C MP, CRP #### [facility] [address] [place] [address] Dr. Leni Hamlin EGFR-NON AF [place]IZEN [place] 59 mL/min/1.73m2 Critically low >=60 [facility] 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: Performed By: #### C MP, CRP #### [facility] [address] [place] [address] Dr. Leni Hamlin Globulin (S) [Mass/Vol] 3.4 g/dL Normal [facility] 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: Performed By: #### C MP, CRP #### [facility] [address] [place] [address] Dr. Leni Hamlin Glucose [Mass/Vol] 108 mg/dL Critically high 74-106 [facility] 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: Performed By: #### C MP, CRP #### [facility] [address] [place] [address] Dr. Leni Hamlin Potassium [Moles/Vol] 4.0 mmol/L Normal 3.5-5.1 [facility] 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: Performed By: #### C MP, CRP #### [facility] [address] [place] [address] Dr. Leni Hamlin Protein [Mass/Vol] 5.9 g/dL Critically low 6.4-8.2 [facility] 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: Performed By: #### C MP, CRP #### [facility] [address] [place] [address] Dr. Leni Hamlin Sodium [Moles/Vol] 137 mmol/L Normal 136-145 [facility] 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: Performed By: #### C MP, CRP #### [facility] [address] [place] [address] Dr. Leni Hamlin Urea nitrogen [Mass/Vol] 15.0 mg/dL Normal 7.0-18.0 [facility] 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: Performed By: #### C MP, CRP #### [facility] [address] [place] [address] Dr. Leni Hamlin Urea nitrogen/Creatinine [Mass ratio] 12.5 mg/mg Normal [facility] 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: Performed By: #### C MP, CRP #### [facility] [address] [place] [address] Dr. Leni Hamlin CBC AUTO DIFFon 10-02-2022 BASO # 0.1 103/ul Normal 0.0-0.1 [facility] 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: Performed By: #### C MP, CRP #### [facility] [address] [place] [address] Dr. Leni Hamlin Basophils/100 WBC (Bld) 0.5 % Normal 0.2-2.0 [facility] 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: Performed By: #### C MP, CRP #### [facility] [address] [place] [address] Dr. Leni Hamlin EO # 0.2 103/ul Normal 0.0-0.7 [facility] 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: Performed By: #### C MP, CRP #### [facility] [address] [place] [address] Dr. Leni Hamlin Eosinophils/100 WBC (Bld) 1.6 % Normal 0.9-7.0 [facility] 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: Performed By: #### C MP, CRP #### [facility] [address] [place] [address] Dr. Leni Hamlin Erythrocyte distribution width (RBC) [Ratio] 13.4 % Normal 11.0-15.0 [facility] 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: Performed By: #### C MP, CRP #### [facility] [address] [place] [address] Dr. Leni Hamlin Hematocrit (Bld) [Volume fraction] 46.6 % Normal 42.0-54.0 [facility] 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: Performed By: #### C MP, CRP #### [facility] [address] [place] [address] Dr. Leni Hamlin Hemoglobin (Bld) [Mass/Vol] 15.1 g/dL Normal 14.0-18.0 [facility] 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: Performed By: #### C MP, CRP #### [facility] [address] [place] [address] Dr. Leni Hamlin IG # 0.21 10e3/ul Critically high 0.00-0.03 [facility] 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: Performed By: #### C MP, CRP #### [facility] [address] [place] [address] Dr. Leni Hamlin IG % 1.4 % Critically high 0.0-0.5 [facility] 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: Performed By: #### C MP, CRP #### [facility] [address] [place] [address] Dr. Leni Hamlin LYMPH # 1.9 103/ul Normal 1.2-3.8 [facility] 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: Performed By: #### C MP, CRP #### [facility] [address] [place] [address] Dr. Leni Hamlin Lymphocytes/100 WBC (Bld) 12.4 % Critically low 20.5-60.0 [facility] 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: Performed By: #### C MP, CRP #### [facility] [address] [place] [address] Dr. Leni Hamlin MANUAL DIFF REQ NO Normal [facility] 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: Performed By: #### C MP, CRP #### [facility] [address] [place] [address] Dr. Leni Hamlin MCH (RBC) [Entitic mass] 28.9 pg Normal 25.9-34.0 [facility] 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: Performed By: #### C MP, CRP #### [facility] [address] [place] [address] Dr. Leni Hamlin MCHC (RBC) [Mass/Vol] 32.4 g/dL Normal 29.9-35.2 [facility] 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: Performed By: #### C MP, CRP #### [facility] [address] [place] [address] Dr. Leni Hamlin MCV (RBC) [Entitic vol] 89.3 fL Normal 80.0-94.0 [facility] 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: Performed By: #### C MP, CRP #### [facility] [address] [place] [address] Dr. Leni Hamlin MONO # 1.1 103/ul Critically high 0.3-0.8 [facility] 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: Performed By: #### C MP, CRP #### [facility] [address] [place] [address] Dr. Leni Hamlin Monocytes/100 WBC (Bld) 6.9 % Normal 1.7-12.0 [facility] 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: Performed By: #### C MP, CRP #### [facility] [address] [place] [address] Dr. Leni Hamlin NEUT # 11.8 103/ul Critically high 1.4-6.5 [facility] 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: Performed By: #### C MP, CRP #### [facility] [address] [address] [address] Leni Hamlin Neutrophils/100 WBC (Bld) 77.2 % Critically high 43.0-75.0 [facility] 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: Performed By: #### C MP, CRP #### [facility] [address] [address] [address] Leni Hamlin Platelet mean volume (Bld) [Entitic vol] 10.5 fL Normal 9.5-13.5 [facility] 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: Performed By: #### C MP, CRP #### [facility] [address] [address] [address] Leni Hamlin PLT 138 103/ul Critically low 150-450 [facility] 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: Performed By: #### C MP, CRP #### [facility] [address] [address] [address] Leni Hamlin RBC 5.22 106/ul Normal 4.70-6.10 [facility] 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: Performed By: #### C MP, CRP #### [facility] [address] [address] [address] Leni Hamlin WBC 15.3 103/ul Critically high 4.0-11.0 [facility] 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: Performed By: #### C MP, CRP #### [facility] [address] [address] [address] Leni Hamlin CRPon 10-02-2022 CRP 13.7 mg/dL Critically high <=1.0 [facility] 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: Performed By: #### C VDAGS #### [facility] [address] [address] [address] Leni Hamlin PROF 14(COMP METB)on 022 Albumin [Mass/Vol] 2.5 g/dL Critically low 3.4-5.0 [facility] 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: Performed By: #### C VDAGS #### [facility] [address] [address] [address] Leni Hamlin Albumin/Globulin [Mass ratio] 0.8 {ratio} Normal [facility] 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: Performed By: #### C VDAGS #### [facility] [address] [address] [address] Leni Hamlin ALP [Catalytic activity/Vol] 54 U/L Normal 46-116 [facility] 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: Performed By: #### C VDAGS #### [facility] [address] [address] [address] Leni Hamlin ALT [Catalytic activity/Vol] 13 U/L Critically low 16-63 [facility] 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: Performed By: #### C VDAGS #### [facility] [address] [address] [address] Leni Hamlin Anion gap [Moles/Vol] 10.6 mmol/L Normal [facility] 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: Performed By: #### C VDAGS #### [facility] [address] [place] [address] Dr. Leni Hamlin AST [Catalytic activity/Vol] 9 U/L Critically low 15-37 [facility] 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: Performed By: #### C VDAGS #### [facility] [address] [address] [address] Leni Hamlin Bilirubin [Mass/Vol] 0.3 mg/dL Normal 0.2-1.0 [facility] 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: Performed By: #### C VDAGS #### [facility] [address] [address] [address] Leni Hamlin Calcium [Mass/Vol] 8.5 mg/dL Normal 8.5-10.1 [facility] 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: Performed By: #### C VDAGS #### [facility] [address] [address] [address] Leni Hamlin Chloride [Moles/Vol] 104 mmol/L Normal 98-107 [facility] 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: Performed By: #### C VDAGS #### [facility] [address] [address] [address] Leni Hamlin CO2 [Moles/Vol] 27.5 mmol/L Normal 21.0-32.0 [facility] 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: Performed By: #### C VDAGS #### [facility] [address] [address] [address] Leni Hamlin Creatinine [Mass/Vol] 1.26 mg/dL Normal 0.70-1.30 [facility] 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: Performed By: #### C VDAGS #### [facility] [address] [address] [address] Leni Hamlin EGFR-AF [place]IZ[place] >60 Normal >=60 [facility] 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: Performed By: #### C VDAGS #### [facility] [address] [address] [address] Leni Hamlin EGFR-NON AF [place]IZEN OF [place] 56 mL/min/1.73m2 Critically low >=60 [facility] 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: Performed By: #### C VDAGS #### [facility] [address] [address] [address] Leni Hamlin Globulin (S) [Mass/Vol] 3.3 g/dL Normal [facility] 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: Performed By: #### C VDAGS #### [facility] [address] [address] [address] Leni Hamlin Glucose [Mass/Vol] 122 mg/dL Critically high 74-106 [facility] 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: Performed By: #### C VDAGS #### [facility] [address] [address] [address] Leni Hamlin Potassium [Moles/Vol] 4.1 mmol/L Normal 3.5-5.1 [facility] 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: Performed By: #### C VDAGS #### [facility] [address] [address] [address] Leni Hamlin Protein [Mass/Vol] 5.8 g/dL Critically low 6.4-8.2 [facility] 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: Performed By: #### C VDAGS #### [facility] [address] [address] [address] Leni Hamlin Sodium [Moles/Vol] 138 mmol/L Normal 136-145 [facility] 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: Performed By: #### C VDAGS #### [facility] [address] [place] [address] Dr. Leni Hamlin Urea nitrogen [Mass/Vol] 20.0 mg/dL Critically high 7.0-18.0 [facility] 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: Performed By: #### C VDAGS #### [facility] [address] [place] [address] Dr. Leni Hamlin Urea nitrogen/Creatinine [Mass ratio] 15.9 mg/mg Normal [facility] 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: Performed By: #### C VDAGS #### [facility] [address] [place] [address] Dr. Leni Hamlin CBC AUTO DIFFon 10-01-2022 BASO # 0.1 103/ul Normal 0.0-0.1 [facility] 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: Performed By: #### C MP, CRP #### [facility] [address] [place] [address] Dr. Leni Hamlin Basophils/100 WBC (Bld) 0.3 % Normal 0.2-2.0 [facility] 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: Performed By: #### C MP, CRP #### [facility] [address] [place] [address] Dr. Leni Hamlin EO # 0.2 103/ul Normal 0.0-0.7 [facility] 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: Performed By: #### C MP, CRP #### [facility] [address] [place] [address] Dr. Leni Hamlin Eosinophils/100 WBC (Bld) 0.8 % Critically low 0.9-7.0 [facility] 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: Performed By: #### C MP, CRP #### [facility] [address] [place] [address] Dr. Leni Hamlin Erythrocyte distribution width (RBC) [Ratio] 13.6 % Normal 11.0-15.0 [facility] 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: Performed By: #### C MP, CRP #### [facility] [address] [place] [address] Dr. Leni Hamlin Hematocrit (Bld) [Volume fraction] 49.0 % Normal 42.0-54.0 [facility] 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: Performed By: #### C MP, CRP #### [facility] [address] [place] [address] Dr. Leni Hamlin Hemoglobin (Bld) [Mass/Vol] 16.0 g/dL Normal 14.0-18.0 [facility] 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: Performed By: #### C MP, CRP #### [facility] [address] [place] [address] Dr. Leni Hamlin IG # 0.24 10e3/ul Critically high 0.00-0.03 [facility] 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: Performed By: #### C MP, CRP #### [facility] [address] [place] [address] Dr. Leni Hamlin IG % 1.2 % Critically high 0.0-0.5 [facility] 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: Performed By: #### C MP, CRP #### [facility] [address] [place] [address] Dr. Leni Hamlin LYMPH # 1.6 103/ul Normal 1.2-3.8 [facility] 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: Performed By: #### C MP, CRP #### [facility] [address] [place] [address] Dr. Leni Hamlin Lymphocytes/100 WBC (Bld) 8.0 % Critically low 20.5-60.0 [facility] 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: Performed By: #### C MP, CRP #### [facility] [address] [place] [address] Dr. Leni Hamlin MANUAL DIFF REQ NO Normal [facility] 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: Performed By: #### C MP, CRP #### [facility] [address] [place] [address] Dr. Leni Hamlin MCH (RBC) [Entitic mass] 29.4 pg Normal 25.9-34.0 [facility] 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: Performed By: #### C MP, CRP #### [facility] [address] [place] [address] Dr. Leni Hamlin MCHC (RBC) [Mass/Vol] 32.7 g/dL Normal 29.9-35.2 [facility] 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: Performed By: #### C MP, CRP #### [facility] [address] [address] [address] Leni Hamlin MCV (RBC) [Entitic vol] 90.1 fL Normal 80.0-94.0 [facility] 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: Performed By: #### C MP, CRP #### [facility] [address] [address] [address] Leni Hamlin MONO # 1.0 103/ul Critically high 0.3-0.8 [facility] 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: Performed By: #### C MP, CRP #### [facility] [address] [address] [address] Leni Hamlin Monocytes/100 WBC (Bld) 5.1 % Normal 1.7-12.0 [facility] 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: Performed By: #### C MP, CRP #### [facility] [address] [address] [address] Leni Hamlin NEUT # 16.8 103/ul Critically high 1.4-6.5 [facility] 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: Performed By: #### C MP, CRP #### [facility] [address] [address] [address] Leni Hamlin Neutrophils/100 WBC (Bld) 84.6 % Critically high 43.0-75.0 [facility] 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: Performed By: #### C MP, CRP #### [facility] [address] [address] [address] Leni Hamlin Platelet mean volume (Bld) [Entitic vol] 9.7 fL Normal 9.5-13.5 [facility] 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: Performed By: #### C MP, CRP #### [facility] [address] [address] [address] Leni Hamlin PLT 138 103/ul Critically low 150-450 [facility] 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: Performed By: #### C MP, CRP #### [facility] [address] [address] [address] Leni Hamlin RBC 5.44 106/ul Normal 4.70-6.10 [facility] 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: Performed By: #### C MP, CRP #### [facility] [address] [address] [address] Leni Hamlin WBC 19.8 103/ul Critically high 4.0-11.0 [facility] 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: Performed By: #### C MP, CRP #### [facility] [address] [address] [address] Leni Hamlin BASO # 0.1 103/ul Normal 0.0-0.1 [facility] 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: Performed By: #### B MP, BNP #### [facility] [address] [address] [address] Leni Hamlin Basophils/100 WBC (Bld) 0.3 % Normal 0.2-2.0 [facility] 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: Performed By: #### B MP, BNP #### [facility] [address] [address] [address] Leni Hamlin EO # 0.1 103/ul Normal 0.0-0.7 [facility] 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: Performed By: #### B MP, BNP #### [facility] [address] [place] [address] Dr. Leni Hamlin Eosinophils/100 WBC (Bld) 0.7 % Critically low 0.9-7.0 [facility] 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: Performed By: #### B MP, BNP #### [facility] [address] [address] [address] Leni Hamlin Erythrocyte distribution width (RBC) [Ratio] 13.6 % Normal 11.0-15.0 [facility] 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: Performed By: #### B MP, BNP #### [facility] [address] [place] [address] Dr. Leni Hamlin Hematocrit (Bld) [Volume fraction] 46.9 % Normal 42.0-54.0 [facility] 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: Performed By: #### B MP, BNP #### [facility] [address] [address] [address] Leni Hamlin Hemoglobin (Bld) [Mass/Vol] 15.5 g/dL Normal 14.0-18.0 [facility] 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: Performed By: #### B MP, BNP #### [facility] [address] [address] [address] Leni Hamlin IG # 0.16 10e3/ul Critically high 0.00-0.03 [facility] 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: Performed By: #### B MP, BNP #### [facility] [address] [place] [address] Dr. Leni Hamlin IG % 0.9 % Critically high 0.0-0.5 [facility] 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: Performed By: #### B MP, BNP #### [facility] [address] [place] [address] Dr. Leni Hamlin LYMPH # 1.8 103/ul Normal 1.2-3.8 [facility] 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: Performed By: #### B MP, BNP #### [facility] [address] [place] [address] Dr. Leni Hamlin Lymphocytes/100 WBC (Bld) 9.7 % Critically low 20.5-60.0 [facility] 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: Performed By: #### B MP, BNP #### [facility] [address] [place] [address] Dr. Leni Hamlin MANUAL DIFF REQ NO Normal [facility] 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: Performed By: #### B MP, BNP #### [facility] [address] [place] [address] Dr. Leni Hamlin MCH (RBC) [Entitic mass] 29.2 pg Normal 25.9-34.0 [facility] 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: Performed By: #### B MP, BNP #### [facility] [address] [place] [address] Dr. Leni Hamlin MCHC (RBC) [Mass/Vol] 33.0 g/dL Normal 29.9-35.2 [facility] 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: Performed By: #### B MP, BNP #### [facility] [address] [address] [address] Leni Hamlin MCV (RBC) [Entitic vol] 88.3 fL Normal 80.0-94.0 [facility] 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: Performed By: #### B MP, BNP #### [facility] [address] [address] [address] Leni Hamlin MONO # 1.4 103/ul Critically high 0.3-0.8 [facility] 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: Performed By: #### B MP, BNP #### [facility] [address] [address] [address] Leni Hamlin Monocytes/100 WBC (Bld) 7.3 % Normal 1.7-12.0 [facility] 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: Performed By: #### B MP, BNP #### [facility] [address] [place] [address] Dr. Leni Hamlin NEUT # 15.1 103/ul Critically high 1.4-6.5 [facility] 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: Performed By: #### B MP, BNP #### [facility] [address] [place] [address] Dr. Leni Hamlin Neutrophils/100 WBC (Bld) 81.1 % Critically high 43.0-75.0 [facility] 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: Performed By: #### B MP, BNP #### [facility] [address] [place] [address] Dr. Leni Hamlin Platelet mean volume (Bld) [Entitic vol] 10.0 fL Normal 9.5-13.5 [facility] 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: Performed By: #### B MP, BNP #### [facility] [address] [place] [address] Dr. Leni Hamlin PLT 141 103/ul Critically low 150-450 [facility] 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: Performed By: #### B MP, BNP #### [facility] [address] [place] [address] Dr. Leni Hamlin RBC 5.31 106/ul Normal 4.70-6.10 [facility] 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: Performed By: #### B MP, BNP #### [facility] [address] [place] [address] Dr. Leni Hamlin WBC 18.7 103/ul Critically high 4.0-11.0 [facility] 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: Performed By: #### B MP, BNP #### [facility] [address] [place] [address] Dr. Leni Hamlin CRPon 10-01-2022 CRP 16.0 mg/dL Critically high <=1.0 [facility] 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: Performed By: #### C VDAGS #### [facility] [address] [place] [address] Dr. Leni Hamlin PROF 14(COMP METB)on 022 Albumin [Mass/Vol] 2.6 g/dL Critically low 3.4-5.0 [facility] 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: Performed By: #### C MP, CRP #### [facility] [address] [place] [address] Dr. Leni Hamlin Albumin/Globulin [Mass ratio] 0.8 {ratio} Normal [facility] 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: Performed By: #### C MP, CRP #### [facility] [address] [place] [address] Dr. Leni Hamlin ALP [Catalytic activity/Vol] 44 U/L Critically low 46-116 [facility] 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: Performed By: #### C MP, CRP #### [facility] [address] [place] [address] Dr. Leni Hamlin ALT [Catalytic activity/Vol] 12 U/L Critically low 16-63 [facility] 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: Performed By: #### C MP, CRP #### [facility] [address] [place] [address] Dr. Leni Hamlin Anion gap [Moles/Vol] 8.7 mmol/L Normal [facility] 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: Performed By: #### C MP, CRP #### [facility] [address] [place] [address] Dr. Leni Hamlin AST [Catalytic activity/Vol] 10 U/L Critically low 15-37 [facility] 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: Performed By: #### C MP, CRP #### [facility] [address] [place] [address] Dr. Leni Hamlin Bilirubin [Mass/Vol] 0.8 mg/dL Normal 0.2-1.0 [facility] 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: Performed By: #### C MP, CRP #### [facility] [address] [place] [address] Dr. Leni Hamlin Calcium [Mass/Vol] 8.3 mg/dL Critically low 8.5-10.1 [facility] 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: Performed By: #### C MP, CRP #### [facility] [address] [place] [address] Dr. Leni Hamlin Chloride [Moles/Vol] 103 mmol/L Normal 98-107 [facility] 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: Performed By: #### C MP, CRP #### [facility] [address] [place] [address] Dr. Leni Hamlin CO2 [Moles/Vol] 28.2 mmol/L Normal 21.0-32.0 [facility] 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: Performed By: #### C MP, CRP #### [facility] [address] [place] [address] Dr. Leni Hamlin Creatinine [Mass/Vol] 1.24 mg/dL Normal 0.70-1.30 [facility] 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: Performed By: #### C MP, CRP #### [facility] [address] [place] [address] Dr. Leni Hamlin EGFR-AF [place]IZ[place] >60 Normal >=60 [facility] 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: Performed By: #### C MP, CRP #### [facility] [address] [place] [address] Dr. Leni Hamlin EGFR-NON AF [place]IZEN [place] 57 mL/min/1.73m2 Critically low >=60 [facility] 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: Performed By: #### C MP, CRP #### [facility] [address] [place] [address] Dr. Leni Hamlin Globulin (S) [Mass/Vol] 3.2 g/dL Normal [facility] 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: Performed By: #### C MP, CRP #### [facility] [address] [place] [address] Dr. Leni Hamlin Glucose [Mass/Vol] 111 mg/dL Critically high 74-106 [facility] 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: Performed By: #### C MP, CRP #### [facility] [address] [place] [address] Dr. Leni Hamlin Potassium [Moles/Vol] 3.9 mmol/L Normal 3.5-5.1 [facility] 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: Performed By: #### C MP, CRP #### [facility] [address] [place] [address] Dr. Leni Hamlin Protein [Mass/Vol] 5.8 g/dL Critically low 6.4-8.2 [facility] 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: Performed By: #### C MP, CRP #### [facility] [address] [place] [address] Dr. Leni Hamlin Sodium [Moles/Vol] 136 mmol/L Normal 136-145 [facility] 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: Performed By: #### C MP, CRP #### [facility] [address] [place] [address] Dr. Leni Hamlin Urea nitrogen [Mass/Vol] 17.0 mg/dL Normal 7.0-18.0 [facility] 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: Performed By: #### C MP, CRP #### [facility] [address] [place] [address] Dr. Leni Hamlin Urea nitrogen/Creatinine [Mass ratio] 13.7 mg/mg Normal [facility] 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: Performed By: #### C MP, CRP #### [facility] [address] [place] [address] Dr. Leni Hamlin C. DIFF PCRon 09-30-2022 C. DIFFICILE PCR Positive Critically abnormal NEGATIVE [facility] 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: Performed By: #### C VDAGS #### [facility] [address] [place] [address] Dr. Leni Hamlin CBC AUTO DIFFon 09-30-2022 BASO # 0.0 103/ul Normal 0.0-0.1 [facility] 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: Performed By: #### C BC #### [facility] [address] [place] [address] Dr. Leni Hamlin Basophils/100 WBC (Bld) 0.3 % Normal 0.2-2.0 [facility] 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: Performed By: #### C BC #### [facility] [address] [place] [address] Dr. Leni Hamlin EO # 0.1 103/ul Normal 0.0-0.7 [facility] 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: Performed By: #### C BC #### [facility] [address] [place] [address] Dr. Leni Hamlin Eosinophils/100 WBC (Bld) 0.8 % Critically low 0.9-7.0 [facility] 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: Performed By: #### C BC #### [facility] [address] [place] [address] Dr. Leni Hamlin Erythrocyte distribution width (RBC) [Ratio] 13.4 % Normal 11.0-15.0 [facility] 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: Performed By: #### C BC #### [facility] [address] [place] [address] Dr. Leni Hamlin Hematocrit (Bld) [Volume fraction] 50.4 % Normal 42.0-54.0 [facility] 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: Performed By: #### C BC #### [facility] [address] [place] [address] Dr. Leni Hamlin Hemoglobin (Bld) [Mass/Vol] 16.2 g/dL Normal 14.0-18.0 [facility] 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: Performed By: #### C BC #### [facility] [address] [place] [address] Dr. Leni Hamlin IG # 0.13 10e3/ul Critically high 0.00-0.03 [facility] 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: Performed By: #### C BC #### [facility] [address] [place] [address] Dr. Leni Hamlin IG % 0.9 % Critically high 0.0-0.5 [facility] 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: Performed By: #### C BC #### [facility] [address] [place] [address] Dr. Leni Hamlin LYMPH # 1.7 103/ul Normal 1.2-3.8 [facility] 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: Performed By: #### C BC #### [facility] [address] [place] [address] Dr. Leni Hamlin Lymphocytes/100 WBC (Bld) 11.1 % Critically low 20.5-60.0 [facility] 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: Performed By: #### C BC #### [facility] [address] [place] [address] Dr. Leni Hamlin MANUAL DIFF REQ NO Normal [facility] 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: Performed By: #### C BC #### [facility] [address] [place] [address] Dr. Leni Hamlin MCH (RBC) [Entitic mass] 28.8 pg Normal 25.9-34.0 [facility] 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: Performed By: #### C BC #### [facility] [address] [place] [address] Dr. Leni Hamlin MCHC (RBC) [Mass/Vol] 32.1 g/dL Normal 29.9-35.2 [facility] 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: Performed By: #### C BC #### [facility] [address] [place] [address] Dr. Leni Hamlin MCV (RBC) [Entitic vol] 89.7 fL Normal 80.0-94.0 [facility] 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: Performed By: #### C BC #### [facility] [address] [place] [address] Dr. Leni Hamlin MONO # 1.5 103/ul Critically high 0.3-0.8 [facility] 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: Performed By: #### C BC #### [facility] [address] [place] [address] Dr. Leni Hamlin Monocytes/100 WBC (Bld) 9.8 % Normal 1.7-12.0 [facility] 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: Performed By: #### C BC #### [facility] [address] [address] [address] Leni Hamlin NEUT # 11.7 103/ul Critically high 1.4-6.5 [facility] 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: Performed By: #### C BC #### [facility] [address] [address] [address] Leni Hamlin Neutrophils/100 WBC (Bld) 77.1 % Critically high 43.0-75.0 [facility] 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: Performed By: #### C BC #### [facility] [address] [place] [address] Dr. Leni Hamlin Platelet mean volume (Bld) [Entitic vol] 9.9 fL Normal 9.5-13.5 [facility] 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: Performed By: #### C BC #### [facility] [address] [place] [address] Dr. Leni Hamlin PLT 156 103/ul Normal 150-450 [facility] 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: Performed By: #### C BC #### [facility] [address] [place] [address] Dr. Leni Hamlin RBC 5.62 106/ul Normal 4.70-6.10 [facility] 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: Performed By: #### C BC #### [facility] [address] [place] [address] Dr. Leni Hamlin WBC 15.2 103/ul Critically high 4.0-11.0 [facility] 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: Performed By: #### C BC #### [facility] [address] [place] [address] Dr. Leni Hamlin CRPon 09-30-2022 CRP 7.6 mg/dL Critically high <=1.0 [facility] 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: Performed By: #### C RP #### [facility] [address] [place] [address] Dr. Leni Hamlin PROF 14(COMP METB)on 09-30- 022 Albumin [Mass/Vol] 2.8 g/dL Critically low 3.4-5.0 [facility] 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: Performed By: #### C RP #### [facility] [address] [place] [address] Dr. Leni Hamlin Albumin/Globulin [Mass ratio] 0.9 {ratio} Normal [facility] 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: Performed By: #### C RP #### [facility] [address] [place] [address] Dr. Leni Hamlin ALP [Catalytic activity/Vol] 45 U/L Critically low 46-116 [facility] 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: Performed By: #### C RP #### [facility] [address] [place] [address] Dr. Leni Hamlin ALT [Catalytic activity/Vol] 17 U/L Normal 16-63 [facility] 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: Performed By: #### C RP #### [facility] [address] [place] [address] Dr. Leni Hamlin Anion gap [Moles/Vol] 8.4 mmol/L Normal [facility] 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: Performed By: #### C RP #### [facility] [address] [place] [address] Dr. Leni Hamlin AST [Catalytic activity/Vol] 9 U/L Critically low 15-37 [facility] 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: Performed By: #### C RP #### [facility] [address] [place] [address] Dr. Leni Hamlin Bilirubin [Mass/Vol] 0.6 mg/dL Normal 0.2-1.0 [facility] 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: Performed By: #### C RP #### [facility] [address] [place] [address] Dr. Leni Hamlin Calcium [Mass/Vol] 8.6 mg/dL Normal 8.5-10.1 [facility] 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: Performed By: #### C RP #### [facility] [address] [place] [address] Dr. Leni Hamlin Chloride [Moles/Vol] 104 mmol/L Normal 98-107 [facility] 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: Performed By: #### C RP #### [facility] [address] [address] [address] Leni Hamlin CO2 [Moles/Vol] 29.6 mmol/L Normal 21.0-32.0 [facility] 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: Performed By: #### C RP #### [facility] [address] [address] [address] Leni Hamlin Creatinine [Mass/Vol] 1.23 mg/dL Normal 0.70-1.30 [facility] 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: Performed By: #### C RP #### [facility] [address] [place] [address] Dr. Leni Hamlin EGFR-AF [place]IZ[place] >60 Normal >=60 [facility] 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: Performed By: #### C RP #### [facility] [address] [place] [address] Dr. Leni Hamlin EGFR-NON AF [place]EN OF [place] 58 mL/min/1.73m2 Critically low >=60 [facility] 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: Performed By: #### C RP #### [facility] [address] [place] [address] Dr. Leni Hamlin Globulin (S) [Mass/Vol] 3.0 g/dL Normal [facility] Comment on above: Performed By: #### C RP #### [facility] [address] [place] [address] Dr. Leni Hamlin Glucose [Mass/Vol] 113 mg/dL Critically high 74-106 [facility] Comment on above: Performed By: #### C RP #### [facility] [address] [place] [address] Dr. Leni Hamlin Potassium [Moles/Vol] 4.0 mmol/L Normal 3.5-5.1 [facility] Comment on above: Performed By: #### C RP #### [facility] [address] [place] [address] Dr. Leni Hamlin Protein [Mass/Vol] 5.8 g/dL Critically low 6.4-8.2 [facility] Comment on above: Performed By: #### C RP #### [facility] [address] [address] [address] Leni Hamlin Sodium [Moles/Vol] 138 mmol/L Normal 136-145 [facility] Comment on above: Performed By: #### C RP #### [facility] [address] [place] [address] Dr. Leni Hamlin Urea nitrogen [Mass/Vol] 17.0 mg/dL Normal 7.0-18.0 [facility] Comment on above: Performed By: #### C RP #### [facility] [address] [place] [address] Dr. Leni Hamlin Urea nitrogen/Creatinine [Mass ratio] 13.8 mg/mg Normal [facility] Comment on above: Performed By: #### C RP #### [facility] [address] [place] [address] Dr. Leni Hamlin CBC AUTO DIFFon 09-29-2022 BASO # 0.1 103/ul Normal 0.0-0.1 [facility] Comment on above: Performed By: #### C VDAGS #### [facility] [address] [place] [address] Dr. Leni Hamlin Basophils/100 WBC (Bld) 0.4 % Normal 0.2-2.0 [facility] Comment on above: Performed By: #### C VDAGS #### [facility] [address] [place] [address] Dr. Leni Hamlin EO # 0.1 103/ul Normal 0.0-0.7 [facility] Comment on above: Performed By: #### C VDAGS #### [facility] [address] [place] [address] Dr. Leni Hamlin Eosinophils/100 WBC (Bld) 0.9 % Normal 0.9-7.0 [facility] Comment on above: Performed By: #### C VDAGS #### [facility] [address] [place] [address] Dr. Leni Hamlin Erythrocyte distribution width (RBC) [Ratio] 13.2 % Normal 11.0-15.0 [facility] Comment on above: Performed By: #### C VDAGS #### [facility] [address] [place] [address] Dr. Leni Hamlin Hematocrit (Bld) [Volume fraction] 53.1 % Normal 42.0-54.0 [facility] Comment on above: Performed By: #### C VDAGS #### [facility] [address] [place] [address] Dr. Leni Hamlin Hemoglobin (Bld) [Mass/Vol] 17.3 g/dL Normal 14.0-18.0 [facility] Comment on above: Performed By: #### C VDAGS #### [facility] [address] [place] [address] Dr. Leni Hamlin IG # 0.30 10e3/ul Critically high 0.00-0.03 [facility] Comment on above: Performed By: #### C VDAGS #### [facility] [address] [place] [address] Dr. Leni Hamlin IG % 2.2 % Critically high 0.0-0.5 [facility] Comment on above: Performed By: #### C VDAGS #### [facility] [address] [place] [address] Dr. Leni Hamlin LYMPH # 1.5 103/ul Normal 1.2-3.8 [facility] Comment on above: Performed By: #### C VDAGS #### [facility] [address] [place] [address] Dr. Leni Hamlin Lymphocytes/100 WBC (Bld) 10.5 % Critically low 20.5-60.0 [facility] Comment on above: Performed By: #### C VDAGS #### [facility] [address] [place] [address] Dr. Leni Hamlin MANUAL DIFF REQ NO Normal [facility] Comment on above: Performed By: #### C VDAGS #### [facility] [address] [place] [address] Dr. Leni Hamlin MCH (RBC) [Entitic mass] 29.0 pg Normal 25.9-34.0 [facility] Comment on above: Performed By: #### C VDAGS #### [facility] [address] [place] [address] Dr. Leni Hamlin MCHC (RBC) [Mass/Vol] 32.6 g/dL Normal 29.9-35.2 [facility] Comment on above: Performed By: #### C VDAGS #### [facility] [address] [place] [address] Dr. Leni Hamlin MCV (RBC) [Entitic vol] 88.9 fL Normal 80.0-94.0 [facility] Comment on above: Performed By: #### C VDAGS #### [facility] [address] [place] [address] Dr. Leni Hamlin MONO # 0.8 103/ul Normal 0.3-0.8 [facility] Comment on above: Performed By: #### C VDAGS #### [facility] [address] [place] [address] Dr. Leni Hamlin Monocytes/100 WBC (Bld) 6.0 % Normal 1.7-12.0 [facility] Comment on above: Performed By: #### C VDAGS #### [facility] [address] [place] [address] Dr. Leni Hamlin NEUT # 11.2 103/ul Critically high 1.4-6.5 [facility] Comment on above: Performed By: #### C VDAGS #### [facility] [address] [place] [address] Dr. Leni Hamlin Neutrophils/100 WBC (Bld) 80.0 % Critically high 43.0-75.0 [facility] Comment on above: Performed By: #### C VDAGS #### [facility] [address] [place] [address] Dr. Leni Hamlin Platelet mean volume (Bld) [Entitic vol] 9.6 fL Normal 9.5-13.5 [facility] Comment on above: Performed By: #### C VDAGS #### [facility] [address] [address] [address] Leni Hamlin PLT 186 103/ul Normal 150-450 [facility] Comment on above: Performed By: #### C VDAGS #### [facility] [address] [address] [address] Leni Hamlin RBC 5.97 106/ul Normal 4.70-6.10 [facility] Comment on above: Performed By: #### C VDAGS #### [facility] [id number] Leni Hamlin WBC 13.9 103/ul Critically high 4.0-11.0 [facility] Comment on above: Performed By: #### C VDAGS #### [facility] [address] ABD/PELV W CONon 09-29-[address] ABD/PELV W CON CT ABDOMEN AND PELVI S WITH CONTRAST HISTORY: Abdominal pain. COMPARISON: None. METHOD: Dose reduction techniques were achieved by using automated exposure control and/or adjustment of mA and/or kV according to patient size and/or use of iterative reconstruction technique. FINDINGS: The lung bases are clear. There is no intrahepatic mass or intrahepatic biliary ductal dilatation. The pancreas and stomach are normal appearing. The spleen is normal in size. The adrenal glands are normal appearing. There are no solid renal masses or hydronephrosis. There is abnormal thickening of the colon from the mid transverse colon to the proximal sigmoid colon pericolonic inflammatory changes. There are a few associated diverticuli. There is no bowel obstruction. The appendix is not visualized. There is no free fluid. There is no lymphadenopathy. There is no free air. There are no acute bony abnormality IMPRESSION: Abnormal thickening of the colon from the mid transverse colon to the proximal sigmoid colon consistent with an acute inflammatory or infectious process. Electronically authenticated by: RAJESH CHACON Date: 2022-09-29 12:51 Normal [facility] Covid-19 PCR (CVDTB)on 09-11 SARS-CoV-2 (COVID-19) RNA VENESSA+probe Ql (Unsp spec) Not detected Normal NOT DETECTED [facility] Comment on above: Result Comment: When diagnostic testing is negative, the possibility of a false negative should be considered in the context of a patient's recent exposures and the presence of clinical signs and symptoms consistent with SARS-CoV-2. This test is not yet approved or cleared by the [place] FDA. When there are no FDA-approved or cleared tests available, and other criteria are met, FDA can make tests available under an emergency access mechanism called an Emergency Use Authorization (EUA). The EUA for this test is supported by the [employer] of Health and Human Service's declaration that circumstances exist to justify the emergency use of in vitro diagnostics for the detection and/or diagnosis of the virus that causes COVID-19. This EUA will remain in effect for the duration of the COVID-19 declaration justifying emergency of IVDs, unless it is terminated or revoked by the FDA (after which the test may no longer be used). Performed By: #### B MP, BNP #### [facility] [address] [place] [address] Dr. Leni Hamlin GI PANEL (PCR)on 09-29-2022 Adenovirus F 40/41 Not detected Normal NOT DETECTED [facility] Comment on above: Performed By: #### C RP #### [facility] [address] [place] [address] Dr. Leni Hamlin Astrovirus Not detected Normal NOT DETECTED [facility] Comment on above: Performed By: #### C RP #### [facility] [address] [place] [address] Dr. Leni Duvall. Diff toxin A/B Not detected Normal NOT DETECTED [facility] Comment on above: Performed By: #### C RP #### [facility] [address] [place] [address] Dr. Leni Hamlin Campylobacter Not detected Normal NOT DETECTED The [facility] Comment on above: Performed By: #### C RP #### [facility] [address] [place] [address] Dr. Leni Hamlin Cryptosporidium Not detected Normal NOT DETECTED [facility] Comment on above: Performed By: #### C RP #### [facility] [address] [place] [address] Dr. Leni Hamlin Cyclos. Cayetanensis Not detected Normal NOT DETECTED [facility] Comment on above: Performed By: #### C RP #### [facility] [address] [place] [address] Dr. Leni Hamlin E. Coli O157 Not Applicable Normal Not Applicable [facility] Comment on above: Performed By: #### C RP #### [facility] [address] [place] [address] Dr. Leni Hamlin E. histolytica Not detected Normal NOT DETECTED [facility] Comment on above: Performed By: #### C RP #### [facility] [address] [place] [address] Dr. Leni Hamlin EAEC Not detected Normal NOT DETECTED [facility] Comment on above: Performed By: #### C RP #### [facility] [address] [place] [address] Dr. Leni Hamlin EIEC Not detected Normal NOT DETECTED [facility] Comment on above: Performed By: #### C RP #### [facility] [address] [place] [address] Dr. Leni Hamlin EPEC Not detected Normal NOT DETECTED [facility] Comment on above: Performed By: #### C RP #### [facility] [address] [place] [address] Dr. Leni Hamlin ETEC Not detected Normal NOT DETECTED [facility] Comment on above: Performed By: #### C RP #### [facility] [address] [place] [address] Dr. Leni Hamlin G. Lamblia Not detected Normal NOT DETECTED [facility] Comment on above: Performed By: #### C RP #### [facility] [address] [place] [address] Dr. Leni ESQUIVELL CONTROLS PASSED Normal The [facility] Comment on above: Performed By: #### C RP #### [facility] [address] [place] [address] Dr. Leni FRIEND RAGHU HEADER GI PANEL BACTERIA Normal T [facility] Comment on above: Performed By: #### C RP #### [facility] [address] [place] [address] Dr. Leni KAMARA ECOLI GI PANEL DIARRHEAGENIC E.COLI / SHIGELLA Normal [facility] Comment on above: Performed By: #### C RP #### [facility] [address] [place] [address] Dr. Leni KAMARA INFO SEE BELOW Normal [facility] Comment on above: Result Comment: EAEC - Enteroaggregative E. Coli EPEC- Enteropathogenic E. Coli ETEC- Enterotoxigenic E. Coli lt/st STEC- Shigella-like toxin-producing E. Coli stx1/stx2 EIEC- Shigella/Enteroinvasive E. Coli Performed By: #### C RP #### [facility] [address] [place] [address] Dr. Leni KAMARA PARASITES GI PANEL PARASITES Normal [facility] Comment on above: Performed By: #### C RP #### [facility] [address] [place] [address] Dr. Leni KAMARA VIRUS GI PANEL VIRUSES Normal [facility] Comment on above: Performed By: #### C RP #### [facility] [address] [place] [address] Dr. Leni Hamlin Norovirus GI/GII Not detected Normal NOT DETECTED [facility] Comment on above: Performed By: #### C RP #### [facility] [address] [place] [address] Dr. Leni Hamlin P. Shigelloides Not detected Normal NOT DETECTED [facility] Comment on above: Performed By: #### C RP #### [facility] [address] [place] [address] Dr. Leni Hamlin Rotavirus A Not detected Normal NOT DETECTED [facility] Comment on above: Performed By: #### C RP #### [facility] [address] [place] [address] Dr. Leni Hamlin Salmonella Not detected Normal NOT DETECTED [facility] Comment on above: Performed By: #### C RP #### [facility] [address] [place] [address] Dr. Leni Hamlin Sapovirus Not detected Normal NOT DETECTED [facility] Comment on above: Performed By: #### C RP #### [facility] [address] [place] [address] Dr. Leni Hamlin STEC Not detected Normal NOT DETECTED [facility] Comment on above: Performed By: #### C RP #### [facility] [address] [place] [address] Dr. Leni Hamlin Vibrio Not detected Normal NOT DETECTED [facility] Comment on above: Performed By: #### C RP #### [facility] [address] [place] [address] Dr. Leni Hamlin Vibrio Cholera Not detected Normal NOT DETECTED [facility] Comment on above: Performed By: #### C RP #### [facility] [address] [place] [address] Dr. Leni Hamlin Y. Enterocolitica Not detected Normal NOT DETECTED [facility] Comment on above: Performed By: #### C RP #### [facility] [address] [place] [address] Dr. Leni Hamlin PROF CHEM 8 (BAS METB)on Anion gap [Moles/Vol] 5.8 mmol/L Normal [facility] Comment on above: Performed By: #### C VDAGS #### [facility] [address] [place] [address] Dr. Leni Hamlin Calcium [Mass/Vol] 9.0 mg/dL Normal 8.5-10.1 [facility] Comment on above: Performed By: #### C VDAGS #### [facility] [address] [place] [address] Dr. Leni Hamlin Chloride [Moles/Vol] 103 mmol/L Normal 98-107 [facility] Comment on above: Performed By: #### C VDAGS #### [facility] [address] [place] [address] Dr. Leni Hamlin CO2 [Moles/Vol] 31.7 mmol/L Normal 21.0-32.0 [facility] Comment on above: Performed By: #### C VDAGS #### [facility] [address] [place] [address] Dr. Leni Hamlin Creatinine [Mass/Vol] 1.28 mg/dL Normal 0.70-1.30 [facility] Comment on above: Performed By: #### C VDAGS #### [facility] [address] [address] [address] Leni Hamlin EGFR-AF CITIZEN OF [place] >60 Normal >=60 [facility] Comment on above: Performed By: #### C VDAGS #### [facility] [address] [address] [address] Leni Hamlin EGFR-NON AF CITIZEN OF [place] 55 mL/min/1.73m2 Critically low >=60 [facility] Comment on above: Performed By: #### C VDAGS #### [facility] [address] [address] [address] Leni Hamlin Glucose [Mass/Vol] 130 mg/dL Critically high 74-106 T [facility] Comment on above: Performed By: #### C VDAGS #### [facility] [address] [address] [address] Leni Hamlin Potassium [Moles/Vol] 4.5 mmol/L Normal 3.5-5.1 [facility] Comment on above: Performed By: #### C VDAGS #### [facility] [address] [place] [address] Dr. Leni Hamlin Sodium [Moles/Vol] 136 mmol/L Normal 136-145 [facility] Comment on above: Performed By: #### C VDAGS #### [facility] [address] [place] [address] Dr. Leni Hamlin Urea nitrogen [Mass/Vol] 23.0 mg/dL Critically high 7.0-18.0 [facility] Comment on above: Performed By: #### C VDAGS #### [facility] [address] [address] [address] Leni Hamlin Urea nitrogen/Creatinine [Mass ratio] 18.0 mg/mg Normal [facility] Comment on above: Performed By: #### C VDAGS #### [facility] [address] [place] [address] Dr. Leni Hamlin Covid-19 PCR (CVDTBH)on 08-13 SARS-CoV-2 (COVID-19) RNA VENESSA+probe Ql (Unsp spec) Not detected Normal NOT DETECTED [facility] Comment on above: Result Comment: When diagnostic testing is negative, the possibility of a false negative should be considered in the context of a patient's recent exposures and the presence of clinical signs and symptoms consistent with SARS-CoV-2. This test is not yet approved or cleared by the [place] FDA. When there are no FDA-approved or cleared tests available, and other criteria are met, FDA can make tests available under an emergency access mechanism called an Emergency Use Authorization (EUA). The EUA for this test is supported by the [place] of Health and Human Service's declaration that circumstances exist to justify the emergency use of in vitro diagnostics for the detection and/or diagnosis of the virus that causes COVID-19. This EUA will remain in effect for the duration of the COVID-19 declaration justifying emergency of IVDs, unless it is terminated or revoked by the FDA (after which the test may no longer be used). Performed By: #### C MP, CRP #### [facility] [address] [address] [address] Leni Hamlin Covid-19 PCR (CVDTBH)on 05-11 SARS-CoV-2 (COVID-19) RNA VENESSA+probe Ql (Unsp spec) Detected Critically abnormal NOT DETECTED [facility] Comment on above: Result Comment: This test is not yet approved or cleared by the [place] FDA. When there are no FDA-approved or cleared tests available, and other criteria are met, FDA can make tests available under an emergency access mechanism called an Emergency Use Authorization (EUA). The EUA for this test is supported by the [place] of Health and Human Service's (HHS's) declaration that circumstances exist to justify the emergency use of in vitro diagnostics for the detection and/or diagnosis of the virus that causes COVID-19. This EUA will remain in effect (meaning this test can be used) for the duration of the COVID-19 declaration justifying emergency of IVDs, unless it is terminated or revoked by FDA (after which the test may no longer be used). Performed By: #### C RP #### [facility] [address] [place], [place] [address] Dr. Leni Hamlin Covid-19 PCR ([facility])on 04-11 SARS-CoV-2 (COVID-19) RNA VENESSA+probe Ql (Unsp spec) Not detected Normal NOT DETECTED [facility] Comment on above: Result Comment: This test is not yet approved or cleared by the [place] FDA. When there are no FDA-approved or cleared tests available, and other criteria are met, FDA can make tests available under an emergency access mechanism called an Emergency Use Authorization (EUA). The EUA for this test is supported by the [place] of Health and Human Service's (HHS's) declaration that circumstances exist to justify the emergency use of in vitro diagnostics for the detection and/or diagnosis of the virus that causes COVID-19. This EUA will remain in effect (meaning this test can be used) for the duration of the COVID-19 declaration justifying emergency of IVDs, unless it is terminated or revoked by FDA (after which the test may no longer be used). When diagnostic testing is negative, the possibility of a false negative should be considered in the context of a patient's recent exposures and the presence of clinical signs and symptoms consistent with SARS-CoV-2. Performed By: #### C VDTB #### [facility] [address] [place], [place] [address] Dr. Leni Hamlin SYMPTOMATIC COVID-19 ANTIGEN on 04-23-2022 EUA Statement SEE BELOW Normal The [facility] Comment on above: Result Comment: This test has not been FDA cleared or approved, but has been authorized by the FDA under an Emergency Use Authorization (EUA) for use by authorized laboratories certified under CLIA that meet the requirements to perform moderate or high complexity testing. This test has been authorized only for the detection of proteins from SARS-CoV-2, not for any other viruses or pathogens. The emergency use of this test is authorized for the duration of the declaration that circumstances exist justifying the authorization of emergency use of in vitro diagnostic tests for detection and/or diagnosis of Covid-19 under section 564(b)(1) of the Act, 21 U.S.C. 360bbb-3(b)(1), unless the declaration is terminated or authorization is revoked sooner. Performed By: #### C VDAGS #### [facility] [address] [place], [place] [address] Dr. Leni Hamlin SARS-CoV-2 (COVID-19) RNA VENESSA+probe Ql (Unsp spec) Negative Normal NEGATIVE [facility] Comment on above: Performed By: #### C VDAGS #### [facility] [address] [place], [place] [address] Dr. Leni Hamlin Cardiovascular Lab Reporton 03-22-2022 Cardiovascular Lab Report [facility] Patient Name: [facility] A MR #: [id number] Department of Physician: Modesto Becerra MD Medicine Service Date: 03/22/2022 Division of Birthdate: 1950 Cardiology Room #: Adult Cardiovascular Services [place] [address] Cardiovascular Laboratory Report PACEMAKER IMPLANT PROCEDURE NOTE DATE OF PROCEDURE: 03/22/2022 PERFORMING PHYSICIAN: Dr. Modesto Becerra CONSENT: Patient LOCATION: EP Lab PROCEDURE PERFORMED: 1. Implantation of pacemaker (Biotronik). 2. Ultrasound guided venous access. INDICATIONS: 1. Sinus node dysfunction, non reversible 2. Symptomatic bradycardia. PROCEDURAL SEDATION: Versed and Fentanyl. Moderate sedation was administered by the sedation nurse under my supervision and noted in the CVL log. Intraprocedural face to face sedation time: 62min. Monitoring: Cardiac telemetry, Blood pressure, continuous pulse oxymetry. FLUOROSCOPY TIME: 1.5 minutes/ 120 mGy. 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 He is noted to have history of syncope and a Holter monitor revealed the same during syncope and he was advised a dual-chamber pacemaker. Patient was brought to the EP lab in the post absorptive state. A procedural pause was performed identifying the patient, the procedure to be performed and the site of implant. The left chest was prepped and draped in the usual sterile fashion. Preoperative antibiotics IV was administered. PROCEDURAL DETAILS: Patient was placed in trendelenberg position and ultrasound was used to evaluate the patency of left axillary vein and for venous access. Left axillary venous access was obtained using modified seldinger technique using a 5 Ni[place]an micro-puncture needle on two occasions and 0.35 wires were placed. Local infiltration of 1% Lidocaine was performed, and an incision was created in the left upper chest along deltopectoral groove. Dissection was then performed using cautery down to the fascial plane above the muscle. Lidocaine was injected subcutaneously, and gentle dissection was performed down to the fascial plane above the pectoralis muscle. A pocket was created for the device. 6 Ni[place]an Safesheaths were placed over the wire. An active fixation Biotronik pacing lead was then delivered through the 6Fsheath to the right ventricle. After confirmation of lead position on orthogonal views (RUBALCAVA and TOGOLESE) to confirm septal position, the screw was activated, and the lead was placed in the right ventricular mid cavity towards the septum. After confirmation of good sensing parameters, injury pattern and pacing thresholds, 10V pacing was done and no diaphragmatic stimulation was noted. It was then secured in the pocket using three 1-0 Silk sutures. Then an active fixation Biotronik lead was delivered through the 6Fsheath to the right atrial appendage. After confirmation of lead position on orthogonal views (RUBALCAVA and TOGOLESE), the screw was activated. After confirmation of good sensing parameters, injury pattern and pacing thresholds, the lead was then tested using Lambert's maneuver. 10V pacing was done and no diaphragmatic stimulation was noted. It was then secured in the pocket using three 1-0 Silk sutures. Pocket hemostasis was secured, and it was then copiously and vigorously irrigated with antibiotic solution. The leads were attached to the generator and then wrapped under the device and the device was tacked to underlying muscle and placed in the pocket. The pocket was closed in layers: muscle and subcutaneous layer using 2-0 Vicryl; skin using 3-0 absorbable monofilament suture. Glue was applied and Tegaderm dressing was placed on top. Lead parameters were then rechecked through the device as noted below. The patient was returned to the short stay room for post procedural observation. No immediate procedural complications were noted. Device info: Biotronik Edora Model# 8DR-T Serial# [id number] RA lead: Model# Biotronik Solia S45 Serial# [id number] Sensin.5mV Threshold: 0.6V@0.5ms Impedance: 507 Ohms RV lead: Model# Biotronik Solia S53 Serial# [id number] Sensin.5mV Threshold: 0.6V@0.4ms Impedance: 663 Ohms POST PROCEDURE EXAM: Patient was hemodynamically stable. COMPLICATIONS: None. ESTIMATED BLOOD LOSS: 15cc IMPRESSION: 1. Successful dual chamber pacemaker with excellent pacing and sensing parameters. RECOMMENDATIONS: 1. Occlusive dressing to be removed after 2 weeks. 2. Do not wet the incision for 7 days. 3. No lifting heavy weights using arm on the same side x 3weeks 4. Do not lift elbow above the shoulder on the same side for 4-6 weeks. 5. No driving for 1 month. 6. F/u in device clinic 1 week from discharge or sooner for any concerns. Modesto Becerra MD Cardiac Electrophysiology El (more content not included)... Normal The [facility] SPUTUM CULTUREon 03-17-2022 Epithelial cells LM Ql (Urine sed) Few Normal [facility] Comment on above: Performed By: #### B MP, BNP #### [facility] [address] [place] [address] Dr. Leni Hamlin Gram Stain Evaluation Comment Normal [facility] Comment on above: Result Comment: This specimen is of good quality and is acceptable for routine bacterial culture. Performed By: #### B MP, BNP #### [facility] [address] [place] [address] Dr. Leni Hamlin Lower Respiratory Culture Final report Normal [facility] Comment on above: Performed By: #### B MP, BNP #### [facility] [address] [address] [address] Leni Hamlin Result 1 Comment Normal [facility] Comment on above: Result Comment: Few gram negative rods. Performed By: #### B MP, BNP #### [facility] [address] [address] [address] Leni Hamlin Result Comment: Rout ine respiratory bola Result 2 Comment Normal [facility] Comment on above: Result Comment: Few gram positive cocci Performed By: #### B MP, BNP #### [facility] [address] [address] [address] Leni Hamlin Result 3 Comment Normal [facility] Comment on above: Result Comment: Rare gram positive rods Performed By: #### B MP, BNP #### [facility] [address] [place] [address] Dr. Leni Hamlin Result 4 Normal [facility] Comment on above: Performed By: #### B MP, BNP #### [facility] [address] [place] [address] Dr. Leni Hamlin White Blood Cells Few Normal The [facility] Comment on above: Performed By: #### B MP, BNP #### [facility] [address] [place] [address] Dr. Leni Hamlin BNPon 03-15-2022 Natriuretic peptide B (Bld) [Mass/Vol] 429.0 pg/mL Normal <=900.0 [facility] Comment on above: Performed By: #### C MP, CRP #### [facility] [address] [place] [address] Dr. Leni Hamlin CBC AUTO DIFFon 03-15-2022 BASO # 0.0 103/ul Normal 0.0-0.1 [facility] Comment on above: Performed By: #### C VDAGS #### [facility] [address] [place] [address] Dr. Leni Hamlin Basophils/100 WBC (Bld) 0.2 % Normal 0.2-2.0 [facility] Comment on above: Performed By: #### C VDAGS #### [facility] [address] [place] [address] Dr. Leni Hamlin EO # 0.0 103/ul Normal 0.0-0.7 [facility] Comment on above: Performed By: #### C VDAGS #### [facility] [address] [place] [address] Dr. Leni Hamlin Eosinophils/100 WBC (Bld) 0.0 % Critically low 0.9-7.0 [facility] Comment on above: Performed By: #### C VDAGS #### [facility] [address] [place] [address] Dr. Leni Hamlin Erythrocyte distribution width (RBC) [Ratio] 13.6 % Normal 11.0-15.0 [facility] Comment on above: Performed By: #### C VDAGS #### [facility] [address] [place] [address] Dr. Leni Hamlin Hematocrit (Bld) [Volume fraction] 44.5 % Normal 42.0-54.0 [facility] Comment on above: Performed By: #### C VDAGS #### [facility] [address] [place] [address] Dr. Leni Hamlin Hemoglobin (Bld) [Mass/Vol] 13.8 g/dL Critically low 14.0-18.0 [facility] Comment on above: Performed By: #### C VDAGS #### [facility] [address] [place] [address] Dr. Leni Hamlin IG # 0.35 10e3/ul Critically high 0.00-0.03 [facility] Comment on above: Performed By: #### C VDAGS #### [facility] [address] [place] [address] Dr. Leni Hamlin IG % 2.4 % Critically high 0.0-0.5 [facility] Comment on above: Performed By: #### C VDAGS #### [facility] [address] [place] [address] Dr. Leni Hamlin LYMPH # 0.6 103/ul Critically low 1.2-3.8 [facility] Comment on above: Performed By: #### C VDAGS #### [facility] [address] [place] [address] Dr. Leni Hamlin Lymphocytes/100 WBC (Bld) 4.1 % Critically low 20.5-60.0 [facility] Comment on above: Performed By: #### C VDAGS #### [facility] [address] [place] [address] Dr. Leni Hamlin MANUAL DIFF REQ NO Normal [facility] Comment on above: Performed By: #### C VDAGS #### [facility] [address] [place] [address] Dr. Leni Hamlin MCH (RBC) [Entitic mass] 29.4 pg Normal 25.9-34.0 [facility] [facility] Comment on above: Performed By: #### C VDAGS #### [facility] [address] [place] [address] Dr. Leni Hamlin MCHC (RBC) [Mass/Vol] 31.0 g/dL Normal 29.9-35.2 [facility] Comment on above: Performed By: #### C VDAGS #### [facility] [address] [place] [address] Dr. Leni Hamlin MCV (RBC) [Entitic vol] 94.7 fL Critically high 80.0-94.0 [facility] Comment on above: Performed By: #### C VDAGS #### [facility] [address] [place] [address] Dr. Leni Hamlin MONO # 0.7 103/ul Normal 0.3-0.8 [facility] Comment on above: Performed By: #### C VDAGS #### [facility] [address] [place] [address] Dr. Leni Hamlin Monocytes/100 WBC (Bld) 4.7 % Normal 1.7-12.0 [facility] Comment on above: Performed By: #### C VDAGS #### [facility] [address] [place] [address] Dr. Leni Hamlin NEUT # 12.9 103/ul Critically high 1.4-6.5 [facility] Comment on above: Performed By: #### C VDAGS #### [facility] [address] [place] [address] Dr. Leni Hamlin Neutrophils/100 WBC (Bld) 88.6 % Critically high 43.0-75.0 [facility] Comment on above: Performed By: #### C VDAGS #### [facility] [address] [place] [address] Dr. Leni Hamlin Platelet mean volume (Bld) [Entitic vol] 10.2 fL Normal 9.5-13.5 [facility] Comment on above: Performed By: #### C VDAGS #### [facility] [address] [address] [address] Leni Hamlin PLT 176 103/ul Normal 150-450 [facility] Comment on above: Performed By: #### C VDAGS #### [facility] [address] [place] [address] Dr. Leni Hamlin RBC 4.70 106/ul Normal 4.70-6.10 [facility] Comment on above: Performed By: #### C VDAGS #### [facility] [address] [place] [address] Dr. Leni Hamlin WBC 14.6 103/ul Critically high 4.0-11.0 [facility] Comment on above: Performed By: #### C VDAGS #### [facility] [address] [place] [address] Dr. Leni Hamlin PROF CHEM 8 (BAS METB)on Anion gap [Moles/Vol] 10.2 mmol/L Normal [facility] Comment on above: Performed By: #### C MP, CRP #### [facility] [address] [place] [address] Dr. Leni Hamlin Calcium [Mass/Vol] 8.0 mg/dL Critically low 8.5-10.1 [facility] Comment on above: Performed By: #### C MP, CRP #### [facility] [address] [place] [address] Dr. Leni Hamlin Chloride [Moles/Vol] 104 mmol/L Normal 98-107 [facility] Comment on above: Performed By: #### C MP, CRP #### [facility] [address] [place] [address] Dr. Leni Hamlin CO2 [Moles/Vol] 28.2 mmol/L Normal 21.0-32.0 [facility] Comment on above: Performed By: #### C MP, CRP #### [facility] [address] [place] [address] Dr. Leni Hamlin Creatinine [Mass/Vol] 1.36 mg/dL Critically high 0.70-1.30 [facility] Comment on above: Performed By: #### C MP, CRP #### [facility] [address] [address] [address] Leni Hamlin EGFR-AF [place]IZ[place] >60 Normal >=60 [facility] Comment on above: Performed By: #### C MP, CRP #### [facility] [address] [address] [address] Leni Hamlin EGFR-NON AF [place]IZEN OF [place] 51 mL/min/1.73m2 Critically low >=60 [facility] Comment on above: Performed By: #### C MP, CRP #### [facility] [address] [address] [address] Leni Hamlin Glucose [Mass/Vol] 205 mg/dL Critically high 74-106 [facility] Comment on above: Performed By: #### C MP, CRP #### [facility] [address] [address] [address] Leni Hamlin Potassium [Moles/Vol] 4.4 mmol/L Normal 3.5-5.1 [facility] Comment on above: Performed By: #### C MP, CRP #### [facility] [address] [address] [address] Leni Hamlin Sodium [Moles/Vol] 138 mmol/L Normal 136-145 [facility] Comment on above: Performed By: #### C MP, CRP #### [facility] [address] [address] [address] Leni Hamlin Urea nitrogen [Mass/Vol] 29.0 mg/dL Critically high 7.0-18.0 [facility] Comment on above: Performed By: #### C MP, CRP #### [facility] [address] [address] [address] Leni Hamlin Urea nitrogen/Creatinine [Mass ratio] 21.3 mg/mg Normal [facility] Comment on above: Performed By: #### C MP, CRP #### [facility] [address] [address] [address] Leni Hamlin BNPon 03-14-2022 Natriuretic peptide B (Bld) [Mass/Vol] 337.0 pg/mL Normal <=900.0 [facility] Comment on above: Performed By: #### C RP #### [facility] [address] [place] [address] Dr. Leni Hamlin CBC AUTO DIFFon 03-14-2022 BASO # 0.0 103/ul Normal 0.0-0.1 [facility] Comment on above: Performed By: #### C MP, CRP #### [facility] [address] [place] [address] Dr. Leni Hamlin Basophils/100 WBC (Bld) 0.2 % Normal 0.2-2.0 [facility] Comment on above: Performed By: #### C MP, CRP #### [facility] [address] [place] [address] Dr. Leni Hamlin EO # 0.0 103/ul Normal 0.0-0.7 [facility] Comment on above: Performed By: #### C MP, CRP #### [facility] [address] [place] [address] Dr. Leni Hamlin Eosinophils/100 WBC (Bld) 0.0 % Critically low 0.9-7.0 [facility] Comment on above: Performed By: #### C MP, CRP #### [facility] [address] [place] [address] Dr. Leni Hamlin Erythrocyte distribution width (RBC) [Ratio] 13.6 % Normal 11.0-15.0 [facility] Comment on above: Performed By: #### C MP, CRP #### [facility] [address] [place] [address] Dr. Leni Hamlin Hematocrit (Bld) [Volume fraction] 47.8 % Normal 42.0-54.0 [facility] Comment on above: Performed By: #### C MP, CRP #### [facility] [address] [place] [address] Dr. Leni Hamlin Hemoglobin (Bld) [Mass/Vol] 14.6 g/dL Normal 14.0-18.0 [facility] Comment on above: Performed By: #### C MP, CRP #### [facility] [address] [address] [address] Leni Hamlin IG # 0.22 10e3/ul Critically high 0.00-0.03 [facility] Comment on above: Performed By: #### C MP, CRP #### [facility] [address] [address] [address] Leni Hamlin IG % 1.3 % Critically high 0.0-0.5 [facility] Comment on above: Performed By: #### C MP, CRP #### [facility] [address] [address] [address] Leni Hamlin LYMPH # 0.5 103/ul Critically low 1.2-3.8 [facility] Comment on above: Performed By: #### C MP, CRP #### [facility] [address] [place] [address] Dr. Leni Hamlin Lymphocytes/100 WBC (Bld) 2.9 % Critically low 20.5-60.0 [facility] Comment on above: Performed By: #### C MP, CRP #### [facility] [address] [address] [address] Leni Hamlin MANUAL DIFF REQ NO Normal [facility] Comment on above: Performed By: #### C MP, CRP #### [facility] [address] [place] [address] Dr. Leni Hamlin MCH (RBC) [Entitic mass] 29.4 pg Normal 25.9-34.0 [facility] Comment on above: Performed By: #### C MP, CRP #### [facility] [address] [address] [address] Leni Hamlin MCHC (RBC) [Mass/Vol] 30.5 g/dL Normal 29.9-35.2 [facility] Comment on above: Performed By: #### C MP, CRP #### [facility] [address] [place] [address] Dr. Leni Hamlin MCV (RBC) [Entitic vol] 96.4 fL Critically high 80.0-94.0 [facility] Comment on above: Performed By: #### C MP, CRP #### [facility] [address] [address] [address] Leni Hamlin MONO # 1.1 103/ul Critically high 0.3-0.8 [facility] Comment on above: Performed By: #### C MP, CRP #### [facility] [address] [address] [address] Leni Hamlin Monocytes/100 WBC (Bld) 6.4 % Normal 1.7-12.0 [facility] Comment on above: Performed By: #### C MP, CRP #### [facility] [address] [address] [address] Leni Hamlin NEUT # 15.2 103/ul Critically high 1.4-6.5 [facility] Comment on above: Performed By: #### C MP, CRP #### [facility] [address] [place] [address] Dr. Leni Hamlin Neutrophils/100 WBC (Bld) 89.2 % Critically high 43.0-75.0 [facility] Comment on above: Performed By: #### C MP, CRP #### [facility] [address] [address] [address] Leni Hamlin Platelet mean volume (Bld) [Entitic vol] 10.4 fL Normal 9.5-13.5 [facility] Comment on above: Performed By: #### C MP, CRP #### [facility] [address] [place] [address] Dr. Leni Hamlin PLT 167 103/ul Normal 150-450 [facility] Comment on above: Performed By: #### C MP, CRP #### [facility] [address] [place] [address] Dr. Leni Hamlin RBC 4.96 106/ul Normal 4.70-6.10 [facility] Comment on above: Performed By: #### C MP, CRP #### [facility] [address] [place] [address] Dr. Leni Hamlin WBC 17.0 103/ul Critically high 4.0-11.0 [facility] Comment on above: Performed By: #### C MP, CRP #### [facility] [address] [address] [address] Leni Hamlin PROF CHEM 8 (BAS METB)on Anion gap [Moles/Vol] 7.0 mmol/L Normal [facility] Comment on above: Performed By: #### C VDAGS #### [facility] [address] [address] [address] Leni Hamlin Calcium [Mass/Vol] 8.3 mg/dL Critically low 8.5-10.1 [facility] Comment on above: Performed By: #### C VDAGS #### [facility] [address] [address] [address] Leni Hamlin Chloride [Moles/Vol] 102 mmol/L Normal 98-107 [facility] Comment on above: Performed By: #### C VDAGS #### [facility] [address] [place] [address] Dr. Leni Hamlin CO2 [Moles/Vol] 29.6 mmol/L Normal 21.0-32.0 [facility] Comment on above: Performed By: #### C VDAGS #### [facility] [address] [address] [address] Leni Hamlin Creatinine [Mass/Vol] 1.48 mg/dL Critically high 0.70-1.30 [facility] Comment on above: Performed By: #### C VDAGS #### [facility] [address] [place] [address] Dr. Leni Hamlin EGFR-AF [place] 56 mL/min/1.73m2 Critically low >=60 [facility] Comment on above: Performed By: #### C VDAGS #### [facility] [address] [address] [address] Leni Hamlin EGFR-NON AF [place]IZEN OF [place] 47 mL/min/1.73m2 Critically low >=60 [facility] Comment on above: Performed By: #### C VDAGS #### [facility] [address] [address] [address] Leni Hamlin Glucose [Mass/Vol] 168 mg/dL Critically high 74-106 [facility] Comment on above: Performed By: #### C VDAGS #### [facility] [address] [place] [address] Dr. Leni Hamlin Potassium [Moles/Vol] 4.6 mmol/L Normal 3.5-5.1 [facility] Comment on above: Performed By: #### C VDAGS #### [facility] [address] [place] [address] Dr. Leni Hamlin Sodium [Moles/Vol] 134 mmol/L Critically low 136-145 [facility] Comment on above: Performed By: #### C VDAGS #### [facility] [address] [place] [address] Dr. Leni Hamlin Urea nitrogen [Mass/Vol] 29.0 mg/dL Critically high 7.0-18.0 [facility] Comment on above: Performed By: #### C VDAGS #### [facility] [address] [place] [address] Dr. Leni Hamlin Urea nitrogen/Creatinine [Mass ratio] 19.6 mg/mg Normal [facility] Comment on above: Performed By: #### C VDAGS #### [facility] [address] [place] [address] Dr. Leni Hamlin BNPon 03-13-2022 Natriuretic peptide B (Bld) [Mass/Vol] 501.0 pg/mL Normal <=900.0 [facility] Comment on above: Performed By: #### B MP, BNP #### [facility] [address] [place] [address] Dr. Leni Hamlin CBC W MANUAL DIFFon 03-13-20 ATYPICAL LYMPH # Normal [facility] Comment on above: Performed By: #### C VDAGS #### [facility] [address] [place] [address] Dr. Leni Hamlin ATYPICAL LYMPH % Normal [facility] Comment on above: Performed By: #### C VDAGS #### [facility] [address] [place] [address] Dr. Leni Hamlin BAND # 2.1 103/ul Critically high 0.0-0.3 [facility] Comment on above: Performed By: #### C VDAGS #### [facility] [address] [address] [address] Leni Hamlin BAND % 12 % Critically high 0-5 [facility] Comment on above: Performed By: #### C VDAGS #### [facility] [address] [place] [address] Dr. Leni Hamlin BASOM # 0.00 103/ul Normal 0.00-0.10 [facility] Comment on above: Performed By: #### C VDAGS #### [facility] [address] [place] [address] Dr. Leni Hamlin BASOM % 0.0 % Critically low 0.2-2.0 [facility] Comment on above: Performed By: #### C VDAGS #### [facility] [address] [place] [address] Dr. Leni Hamlin BLAST # Normal [facility] Comment on above: Performed By: #### C VDAGS #### [facility] [address] [place] [address] Dr. Leni Hamlin BLAST % Normal [facility] Comment on above: Performed By: #### C VDAGS #### [facility] [address] [place] [address] Dr. Leni Hamlin CORRECTED WBC Normal 4.0-11.0 [facility] Comment on above: Performed By: #### C VDAGS #### [facility] [address] [place] [address] Dr. Leni Hamlin EOS # 0.00 103/ul Normal 0.00-0.70 [facility] Comment on above: Performed By: #### C VDAGS #### [facility] [address] [place] [address] Dr. Leni Hamlin EOS% 0.0 % Critically low 0.9-7.0 [facility] Comment on above: Performed By: #### C VDAGS #### [facility] [address] [place] [address] Dr. Leni Hamlin HCT 51.2 % Normal 42.0-54.0 [facility] Comment on above: Performed By: #### C VDAGS #### [facility] [address] [place] [address] Dr. Leni Hamlin HGB 15.4 g/dl Normal 14.0-18.0 [facility] Comment on above: Performed By: #### C VDAGS #### [facility] [address] [place] [address] Dr. Leni Hamlin LYMPHM # 0.52 103/ul Critically low 1.20-3.80 [facility] Comment on above: Performed By: #### C VDAGS #### [facility] [address] [place] [address] Dr. Leni Hamlin LYMPHM% 3.0 % Critically low 20.5-60.0 [facility] Comment on above: Performed By: #### C VDAGS #### [facility] [address] [place] [address] Dr. Leni Hamlin MCH 29.6 pg Normal 25.9-34.0 [facility] Comment on above: Performed By: #### C VDAGS #### [facility] [address] [place] [address] Dr. Leni Hamlin MCHC 30.1 g/dl Normal 29.9-35.2 [facility] Comment on above: Performed By: #### C VDAGS #### [facility] [address] [place] [address] Dr. Leni Hamlin MCV 98.5 fL Critically high 80.0-94.0 [facility] Comment on above: Performed By: #### C VDAGS #### [facility] [address] [place] [address] Dr. Leni Hamlin METAMYELOCYTE # Normal [facility] Comment on above: Performed By: #### C VDAGS #### [facility] [address] [place] [address] Dr. Leni Hamlin METAMYELOCYTE % Normal [facility] Comment on above: Performed By: #### C VDAGS #### [facility] [address] [place] [address] Dr. Leni Hamlin MONOM# 0.86 103/ul Critically high 0.30-0.80 [facility] Comment on above: Performed By: #### C VDAGS #### [facility] [address] [place] [address] Dr. Leni Hamlin MONOM% 5.0 % Normal 1.7-12.0 [facility] Comment on above: Performed By: #### C VDAGS #### [facility] [address] [place] [address] Dr. Leni Hamlin MPV 10.0 fL Normal 9.5-13.5 [facility] Comment on above: Performed By: #### C VDAGS #### [facility] [address] [place] [address] Dr. Leni Hamlin MYELOCYTE # Normal [facility] Comment on above: Performed By: #### C VDAGS #### [facility] [address] [place] [address] Dr. Leni Hamlin MYELOCYTE % Normal [facility] Comment on above: Performed By: #### C VDAGS #### [facility] [address] [place] [address] Dr. Leni Hamlin NRBC Normal [facility] Comment on above: Performed By: #### C VDAGS #### [facility] [address] [place] [address] Dr. Leni Hamlin PLT 161 103/ul Normal 150-450 [facility] Comment on above: Performed By: #### C VDAGS #### [facility] [address] [place] [address] Dr. Leni Hamlin RBC 5.20 106/ul Normal 4.70-6.10 [facility] Comment on above: Performed By: #### C VDAGS #### [facility] [address] [place] [address] Dr. Leni Hamlin RDW 13.5 % Normal 11.0-15.0 [facility] Comment on above: Performed By: #### C VDAGS #### [facility] [address] [address] [address] Leni Hamlin SEG # 13.76 103/ul Critically high 1.40-6.50 [facility] Comment on above: Performed By: #### C VDAGS #### [facility] [address] [address] [address] Leni Hamlin SEG % 80.0 % Critically high 43.0-75.0 [facility] Comment on above: Performed By: #### C VDAGS #### [facility] [address] [address] [address] Leni Hamlin WBC 17.2 103/ul Critically high 4.0-11.0 [facility] Comment on above: Performed By: #### C VDAGS #### [facility] [address] [place] [address] Dr. Leni Hamlin PROF CHEM 8 (BAS METB)on Anion gap [Moles/Vol] 12.5 mmol/L Normal [facility] Comment on above: Performed By: #### C VDAGS #### [facility] [address] [address] [address] Leni Hamlin Calcium [Mass/Vol] 8.4 mg/dL Critically low 8.5-10.1 [facility] Comment on above: Performed By: #### C VDAGS #### [facility] [address] [address] [address] Leni Hamlin Chloride [Moles/Vol] 100 mmol/L Normal 98-107 [facility] Comment on above: Performed By: #### C VDAGS #### [facility] [address] [address] [address] Leni Hamlin CO2 [Moles/Vol] 26.7 mmol/L Normal 21.0-32.0 [facility] Comment on above: Performed By: #### C VDAGS #### [facility] [address] [address] [address] Leni Hamlin Creatinine [Mass/Vol] 1.87 mg/dL Critically high 0.70-1.30 [facility] Comment on above: Performed By: #### C VDAGS #### [facility] [address] [address] [address] Leni Hamlin EGFR-AF [place]IZ[place] 43 mL/min/1.73m2 Critically low >=60 [facility] Comment on above: Performed By: #### C VDAGS #### [facility] [address] [place] [address] Dr. Leni Hamlin EGFR-NON AF [place]IZ[place] OF [place] 36 mL/min/1.73m2 Critically low >=60 [facility] Comment on above: Performed By: #### C VDAGS #### [facility] [address] [place] [address] Dr. Leni Hamlin Glucose [Mass/Vol] 222 mg/dL Critically high 74-106 [facility] Comment on above: Performed By: #### C VDAGS #### [facility] [address] [place] [address] Dr. Leni Hamlin Potassium [Moles/Vol] 4.2 mmol/L Normal 3.5-5.1 [facility] Comment on above: Performed By: #### C VDAGS #### [facility] [address] [place] [address] Dr. Leni Hamlin Sodium [Moles/Vol] 135 mmol/L Critically low 136-145 [facility] Comment on above: Performed By: #### C VDAGS #### [facility] [address] [place] [address] Dr. Leni Hamlin Urea nitrogen [Mass/Vol] 25.0 mg/dL Critically high 7.0-18.0 [facility] Comment on above: Performed By: #### C VDAGS #### [facility] [address] [place] [address] Dr. Leni Hamlin Urea nitrogen/Creatinine [Mass ratio] 13.4 mg/mg Normal [facility] Comment on above: Performed By: #### C VDAGS #### [facility] [address] [place] [address] Dr. Leni Hamlin Anion gap [Moles/Vol] 10.7 mmol/L Normal [facility] Comment on above: Performed By: #### B MP, BNP #### [facility] [address] [place] [address] Dr. Leni Hamlin Calcium [Mass/Vol] 8.2 mg/dL Critically low 8.5-10.1 Th [facility] Comment on above: Performed By: #### B MP, BNP #### [facility] [address] [place] [address] Dr. Leni Hamlin Chloride [Moles/Vol] 101 mmol/L Normal 98-107 [facility] Comment on above: Performed By: #### B MP, BNP #### [facility] [address] [place] [address] Dr. Leni Hamlin CO2 [Moles/Vol] 30.0 mmol/L Normal 21.0-32.0 [facility] Comment on above: Performed By: #### B MP, BNP #### [facility] [address] [place] [address] Dr. Leni Hamlin Creatinine [Mass/Vol] 1.49 mg/dL Critically high 0.70-1.30 [facility] Comment on above: Performed By: #### B MP, BNP #### [facility] [address] [place] [address] Dr. Leni Hamlin EGFR-AF [place] 56 mL/min/1.73m2 Critically low >=60 [facility] Comment on above: Performed By: #### B MP, BNP #### [facility] [address] [place] [address] Dr. Leni Hamlin EGFR-NON AF [place] 46 mL/min/1.73m2 Critically low >=60 [facility] Comment on above: Performed By: #### B MP, BNP #### [facility] [address] [place] [address] Dr. Leni Hamlin Glucose [Mass/Vol] 158 mg/dL Critically high 74-106 [facility] Comment on above: Performed By: #### B MP, BNP #### [facility] [address] [place] [address] Dr. Leni Hamlin Potassium [Moles/Vol] 5.7 mmol/L Critically high 3.5-5.1 [facility] Comment on above: Performed By: #### B MP, BNP #### [facility] [address] [place] [address] Dr. Leni Hamlin Sodium [Moles/Vol] 136 mmol/L Normal 136-145 [facility] Comment on above: Performed By: #### B MP, BNP #### [facility] [address] [place] [address] Dr. Leni Hamlin Urea nitrogen [Mass/Vol] 19.0 mg/dL Critically high 7.0-18.0 [facility] Comment on above: Performed By: #### B MP, BNP #### [facility] [address] [place] [address] Dr. Leni Hamlin Urea nitrogen/Creatinine [Mass ratio] 12.8 mg/mg Normal [facility] Comment on above: Performed By: #### B MP, BNP #### [facility] [address] [place] [address] Dr. Leni Hamlin BNPon 03-12-2022 Natriuretic peptide B (Bld) [Mass/Vol] 405.0 pg/mL Normal <=900.0 [facility] Comment on above: Performed By: #### B MP, BNP #### [facility] [address] [place] [address] Dr. Leni Hamlin CBC AUTO DIFFon 03-12-2022 BASO # 0.1 103/ul Normal 0.0-0.1 [facility] Comment on above: Performed By: #### C BC #### [facility] [address] [place] [address] Dr. Leni Hamlin Basophils/100 WBC (Bld) 0.3 % Normal 0.2-2.0 [facility] Comment on above: Performed By: #### C BC #### [facility] [address] [place] [address] Dr. Leni Hamlin EO # 0.0 103/ul Normal 0.0-0.7 [facility] Comment on above: Performed By: #### C BC #### [facility] [address] [address] [address] Leni Hamlin Eosinophils/100 WBC (Bld) 0.1 % Critically low 0.9-7.0 [facility] Comment on above: Performed By: #### C BC #### [facility] [address] [place] [address] Dr. Leni Hamlin Erythrocyte distribution width (RBC) [Ratio] 13.3 % Normal 11.0-15.0 [facility] Comment on above: Performed By: #### C BC #### [facility] [address] [place] [address] Dr. Leni Hamlin Hematocrit (Bld) [Volume fraction] 52.2 % Normal 42.0-54.0 [facility] Comment on above: Performed By: #### C BC #### [facility] [address] [place] [address] Dr. Leni Hamlin Hemoglobin (Bld) [Mass/Vol] 16.5 g/dL Normal 14.0-18.0 [facility] Comment on above: Performed By: #### C BC #### [facility] [address] [place] [address] Dr. Leni Hamlin IG # 0.19 10e3/ul Critically high 0.00-0.03 [facility] Comment on above: Performed By: #### C BC #### [facility] [address] [place] [address] Dr. Leni Hamlin IG % 1.0 % Critically high 0.0-0.5 [facility] Comment on above: Performed By: #### C BC #### [facility] [address] [place] [address] Dr. Leni Hamlin LYMPH # 0.8 103/ul Critically low 1.2-3.8 [facility] Comment on above: Performed By: #### C BC #### [facility] [address] [place] [address] Dr. Leni Hamlin Lymphocytes/100 WBC (Bld) 3.8 % Critically low 20.5-60.0 [facility] Comment on above: Performed By: #### C BC #### [facility] [address] [address] [address] Leni Hamlin MANUAL DIFF REQ NO Normal [facility] Comment on above: Performed By: #### C BC #### [facility] [address] [place] [address] Dr. Leni Hamlin MCH (RBC) [Entitic mass] 29.6 pg Normal 25.9-34.0 [facility] Comment on above: Performed By: #### C BC #### [facility] [address] [place] [address] Dr. Leni Hamlin MCHC (RBC) [Mass/Vol] 31.6 g/dL Normal 29.9-35.2 [facility] Comment on above: Performed By: #### C BC #### [facility] [address] [place] [address] Dr. Leni Hamlin MCV (RBC) [Entitic vol] 93.7 fL Normal 80.0-94.0 [facility] Comment on above: Performed By: #### C BC #### [facility] [address] [place] [address] Dr. Leni Hamlin MONO # 1.6 103/ul Critically high 0.3-0.8 [facility] Comment on above: Performed By: #### C BC #### [facility] [address] [place] [address] Dr. Leni Hamlin Monocytes/100 WBC (Bld) 8.3 % Normal 1.7-12.0 [facility] Comment on above: Performed By: #### C BC #### [facility] [address] [place] [address] Dr. Leni Hamlin NEUT # 17.0 103/ul Critically high 1.4-6.5 [facility] Comment on above: Performed By: #### C BC #### [facility] [address] [place] [address] Dr. Leni Hamlin Neutrophils/100 WBC (Bld) 86.5 % Critically high 43.0-75.0 [facility] Comment on above: Performed By: #### C BC #### [facility] [address] [address] [address] Leni Hamlin Platelet mean volume (Bld) [Entitic vol] 10.0 fL Normal 9.5-13.5 [facility] Comment on above: Performed By: #### C BC #### [facility] [address] [address] [address] Leni Hamlin PLT 194 103/ul Normal 150-450 [facility] Comment on above: Performed By: #### C BC #### [facility] [address] [address] [address] Leni Hamlin RBC 5.57 106/ul Normal 4.70-6.10 [facility] Comment on above: Performed By: #### C BC #### [facility] [address] [address] [address] Leni Hamlin WBC 19.7 103/ul Critically high 4.0-11.0 [facility] Comment on above: Performed By: #### C BC #### [facility] [address] CSPINE WO CONon 2 CT CSPINE WO CON EXAMINATION: CT CSPINE WO CON HISTORY: UNSPECIFIED INJURY OF HEAD, INITIAL ENCOUNTER ; syncope, struck back of head COMPARISON: No relevant comparison available. TECHNIQUE: Axial, Coronal, and Sagittal images were created without IV contrast. Dose reduction techniques were achieved by using automated exposure control and/or adjustment of mA and/or kV according to patient size and/or use of iterative reconstruction technique. FINDINGS: VERTEBRAL BODIES: Slight reversal of the normal lordotic curvature; positioning versus muscle spasm. No fracture or spondylolisthesis. FACET JOINTS: Multilevel mild/moderate degenerative facet arthropathy. No disruption or abnormal widening. CERVICAL DISCS: Multilevel moderate narrowing, marked at C5-6. Posterior projecting degenerative disc-osteophyte complex at several levels, largest at C5-6. CENTRAL CANAL: Moderate marked narrowing posterior to C5-6 secondary to degenerative changes. No evidence of hemorrhage. PARASPINAL AREA: No visible mass. IMPRESSION: 1. No appreciable acute bone abnormality. 2. Multilevel degenerative changes. Electronically authenticated by: CIERA HERNÁNDEZ Date: 2022-03-12 13:42 Normal [facility] CT HEAD WO CONon 03-12-2022 CT HEAD WO CON EXAMINATION: CT HEAD WO CON, 03/12/2022 12:31 PM EDT HISTORY: HEADACHE , 58 COMPARISON: None. TECHNIQUE: CT scan of the head was performed without IV contrast. CT dose reduction technique was used, including Automated Exposure Control. FINDINGS: BRAIN: No edema, hemorrhage, mass, acute infarction, or inappropriate atrophy. CSF SPACES: No hydrocephalus, subarachnoid hemorrhage, or mass. Appropriate for age. SKULL: No fracture, mass, or other significant visible lesion. SINUSES: No significant mucosal thickening or fluid on the limited views. ORBITS: No appreciable abnormality on the limited views. OTHER: Significant motion artifact limits exam IMPRESSION: Limited by motion artifact. No acute intracranial abnormality Electronically authenticated by: SUSAN KC Date: 2022-03-12 13:20 Normal [facility] CTA CHEST WO W CONon 022 CTA CHEST WO W CON EXAMINATION: CTA CHEST WO W CON HISTORY: SHORTNESS OF BREATH , syncopal episode, posterior rib pain, elevated d-dimer COMPARISON: No relevant comparison available. TECHNIQUE: Multi-planar CT images were created with IV contrast. Axial, Coronal, and Sagittal images. Dose reduction techniques were achieved by using automated exposure control and/or adjustment of mA and/or kV according to patient size and/or use of iterative reconstruction technique. 3-D reconstruction was performed on a separate workstation. FINDINGS: VASCULATURE: Questionable small amount of nonocclusive thrombus within a subsegmental vessel of the right lower lobe and middle basilar segment. LUNGS: Trace amount of atelectasis or infiltrates within dependent lung bases. PLEURA: No mass, effusion, or pneumothorax. DARRELL: Mild right hilar lymphadenopathy. MEDIASTINUM: Mild mediastinal lymphadenopathy. CARDIAC: No enlargement, pericardial effusion, or pericardial thickening. AORTA: No aneurysm or dissection. CHEST WALL: No mass or axillary adenopathy. BONES: No bone lesion or fracture. LIMITED ABDOMEN: No suspicious findings. Limited images of the upper abdomen. OTHER: Negative. IMPRESSION: 1. Questionable, small single area of nonocclusive thrombus within a subsegmental vessel of the right lower lobe basilar segment. No other emboli are findings to suggest pulmonary emboli. 2. Mild right hilar and mediastinal lymphadenopathy suggesting the mild right lung base findings may represent infectious infiltrates/pneumonia rather than atelectasis. Electronically authenticated by: CIERA EDGAR Date: 2022-03-12 14:46 Normal [facility] CULTURE BLOODon 03-12-2022 Microscopic examination of blood, culture Culture Observations: NO GROWTH AT 5 DAYS. Normal [facility] Comment on above: Performed By: #### C MP, CRP #### [facility] [address] [place], [place] [address] Dr. Leni Hamlin Microscopic examination of blood, culture Culture Observations: NO GROWTH AT 5 DAYS. Normal [facility] Comment on above: Performed By: #### C MP, CRP #### [facility] [address] [place], [place] [address] Dr. Leni Hamlin Covid-19 PCR ([facility])on SARS-CoV-2 (COVID-19) RNA VENESSA+probe Ql (Unsp spec) Not detected Normal NOT DETECTED [facility] Comment on above: Result Comment: When diagnostic testing is negative, the possibility of a false negative should be considered in the context of a patient's recent exposures and the presence of clinical signs and symptoms consistent with SARS-CoV-2. This test is not yet approved or cleared by the [place] Food and Drug Administration (FDA). This test was developed by [employer], [place], [place]. The performance characteristics of this test were validated by [facility]. The results are not intended to be used as the sole means for clinical diagnosis or patient management decisions. [facility] is authorized under Clinical Laboratory Improvement Amendments (CLIA) to perform high- complexity testing. This test is not yet approved or cleared by the [place] FDA. When there are no FDA-approved or cleared tests available, and other criteria are met, FDA can make tests available under an emergency access mechanism called an Emergency Use Authorization (EUA). The EUA for this test is supported by the [employer] of Health and Human Service's declaration that circumstances exist to justify the emergency use of in vitro diagnostics for the detection and/or diagnosis of the virus that causes COVID-19. This EUA will remain in effect for the duration of the COVID-19 declaration justifying emergency of IVDs, unless it is terminated or revoked by the FDA (after which the test may no longer be used). Performed By: #### C RP #### [facility] [address] [place] [address] Dr. Leni Hamlin D-DIMERon 03-12-2022 D-DIMER 6.00 mg/L FEU Critically high 0.19-0.50 [facility] Comment on above: Performed By: #### B MP, BNP #### [facility] [address] [place] [address] Dr. Leni Hamlin D-DIMER COMMENTS SEE BELOW Normal [facility] Comment on above: Result Comment: Incr eases in D-Dimer concentration observed with thromboembolic events can be variable due to localization, size, and age of the thrombus. Therefore, a thromboembolic event cannot be diagnosed with certainty on the basis of the reference range. D-Dimers may also be elevated for a variety of disorders including: advanced age, , coronary disease, cancer, liver disease, infection, inflammation, hematoma, DIC, trauma, post-surgery, diabetes, thrombolytic or anticoagulant therapy, stress, and generalized hospitalization. Performed By: #### B MP, BNP #### [facility] [address] [place] [address] Dr. Leni Hamlin ER URINE PROFILEon 2 Bilirubin Ql (U) Negative Normal NEGATIVE [facility] Comment on above: Performed By: #### C RP #### [facility] [address] [place] [address] Dr. Leni Hamlin Clarity (U) CLEAR Normal CLEAR [facility] Comment on above: Performed By: #### C RP #### [facility] [address] [place] [address] Dr. Leni Hamlin Color (U) YELLOW Normal YELLOW [facility] Comment on above: Performed By: #### C RP #### [facility] [address] [place] [address] Dr. Leni ELLIS A micrscopic examination will be performed if indicated. Normal [facility] Comment on above: Performed By: #### C RP #### [facility] [address] [place] [address] Dr. Leni Hamlin Glucose Ql (U) Negative [facility] Comment on above: Performed By: #### C RP #### [facility] [address] [place] [address] Dr. Leni Hamlin Hemoglobin Ql (U) SMALL Abnormal NEGATIVE [facility] Comment on above: Performed By: #### C RP #### [facility] [address] [place] [address] Dr. Leni Hamlin Ketones Ql (U) Negative Normal NEGATIVE [facility] Comment on above: Performed By: #### C RP #### [facility] [address] [place] [address] Dr. Leni Hamlin LEUKOCYTES Negative Normal NEGATIVE [facility] Comment on above: Performed By: #### C RP #### [facility] [address] [place] [address] Dr. Leni Hamlin Nitrite Ql (U) Negative Normal [facility] Comment on above: Performed By: #### C RP #### [facility] [address] [place] [address] Dr. Leni Hamlin pH (U) 5.5 [pH] Normal 5-9 [facility] Comment on above: Performed By: #### C RP #### [facility] [address] [place] [address] Dr. Leni Hamlin SPEC GRAVITY <=1.005 Abnormal 1.005-<=1.025 [facility] Comment on above: Performed By: #### C RP #### [facility] [address] [place] [address] Dr. Leni Hamlin UA PROTEIN >300 Abnormal NEGATIVE/ TRACE [facility] Comment on above: Performed By: #### C RP #### [facility] [address] [place] [address] Dr. Leni Hamlin UR MICRO IND INDICATED Normal [facility] Comment on above: Performed By: #### C RP #### [facility] [address] [place] [address] Dr. Leni Hamlin Urobilinogen Qn (U) 0.2 {Stacy'U}/dL Normal 0.2 - 1. 0 [facility] Comment on above: Performed By: #### C RP #### [facility] [address] [place] [address] Dr. Leni Hamlin LACTATE/LACTIC ACIDon 2021 Lactate [Moles/Vol] 0.5 mmol/L Normal 0.4-2.0 [facility] Comment on above: Performed By: #### B MP, BNP #### [facility] [address] [place] [address] Dr. Leni Hamlin Lactate [Moles/Vol] 1.6 mmol/L Normal 0.4-2.0 [facility] Comment on above: Performed By: #### L ACT #### [facility] [address] [place] [address] Dr. Leni Hamlin PROF 14(COMP METB)on 022 Albumin [Mass/Vol] 3.1 g/dL Critically low 3.4-5.0 [facility] Comment on above: Performed By: #### B MP, BNP #### [facility] [address] [place] [address] Dr. Leni Hamlin Albumin/Globulin [Mass ratio] 0.8 {ratio} Normal [facility] Comment on above: Performed By: #### B MP, BNP #### [facility] [address] [place] [address] Dr. Leni Hamlin ALP [Catalytic activity/Vol] 52 U/L Normal 46-116 [facility] Comment on above: Performed By: #### B MP, BNP #### [facility] [address] [place] [address] Dr. Leni Hamlin ALT [Catalytic activity/Vol] 27 U/L Normal 16-63 [facility] Comment on above: Performed By: #### B MP, BNP #### [facility] [address] [place] [address] Dr. Leni Hamlin Anion gap [Moles/Vol] 12.9 mmol/L Normal [facility] Comment on above: Performed By: #### B MP, BNP #### [facility] [address] [place] [address] Dr. Leni Hamlin AST [Catalytic activity/Vol] 14 U/L Critically low 15-37 [facility] Comment on above: Performed By: #### B MP, BNP #### [facility] [address] [place] [address] Dr. Leni Hamlin Bilirubin [Mass/Vol] 1.2 mg/dL Critically high 0.2-1.0 [facility] Comment on above: Performed By: #### B MP, BNP #### [facility] [address] [place] [address] Dr. Leni Hamlin Calcium [Mass/Vol] 8.2 mg/dL Critically low 8.5-10.1 [facility] Comment on above: Performed By: #### B MP, BNP #### [facility] [address] [place] [address] Dr. Leni Hamlin Chloride [Moles/Vol] 99 mmol/L Normal 98-107 [facility] Comment on above: Performed By: #### B MP, BNP #### [facility] [address] [place] [address] Dr. Leni Hamlin CO2 [Moles/Vol] 28.4 mmol/L Normal 21.0-32.0 [facility] Comment on above: Performed By: #### B MP, BNP #### [facility] [address] [place] [address] Dr. Leni Hamlin Creatinine [Mass/Vol] 1.44 mg/dL Critically high 0.70-1.30 [facility] Comment on above: Performed By: #### B MP, BNP #### [facility] [address] [place] [address] Dr. Leni Hamlin EGFR-AF [place]IZEN [place] 58 mL/min/1.73m2 Critically low >=60 [facility] Comment on above: Performed By: #### B MP, BNP #### [facility] [address] [place] [address] Dr. Leni Hamlin EGFR-NON AF CITIZEN OF [place] 48 mL/min/1.73m2 Critically low >=60 [facility] Comment on above: Performed By: #### B MP, BNP #### [facility] [address] [place] [address] Dr. Leni Hamlin Globulin (S) [Mass/Vol] 3.8 g/dL Normal [facility] Comment on above: Performed By: #### B MP, BNP #### [facility] [address] [place] [address] Dr. Leni Hamlin Glucose [Mass/Vol] 137 mg/dL Critically high 74-106 [facility] Comment on above: Performed By: #### B MP, BNP #### [facility] [address] [place] [address] Dr. Leni Hamlin Potassium [Moles/Vol] 4.3 mmol/L Normal 3.5-5.1 [facility] Comment on above: Performed By: #### B MP, BNP #### [facility] [address] [place] [address] Dr. Leni Hamlin Protein [Mass/Vol] 6.9 g/dL Normal 6.1-8.2 [facility] Comment on above: Performed By: #### B MP, BNP #### [facility] [address] [place] [address] Dr. Leni Hamlin Sodium [Moles/Vol] 136 mmol/L Normal 136-145 [facility] Comment on above: Performed By: #### B MP, BNP #### [facility] [address] [place] [address] Dr. Leni Hamlin Urea nitrogen [Mass/Vol] 15.0 mg/dL Normal 7.0-18.0 [facility] Comment on above: Performed By: #### B MP, BNP #### [facility] [address] [place] [address] Dr. Leni Hamlin Urea nitrogen/Creatinine [Mass ratio] 10.4 mg/mg Normal [facility] Comment on above: Performed By: #### B MP, BNP #### [facility] [address] [place] [address] Dr. Leni Hamlin PROTIMEon 03-12-2022 INR Coag (PPP) [Relative time] 1.07 {INR} Normal [facility] Comment on above: Performed By: #### B MP, BNP #### [facility] [address] [place] [address] Dr. Leni Hamlin INR GUIDELINES SEE BELOW Normal [facility] Comment on above: Result Comment: WAQAS RED INR: 2.0 - 3.0 CONDITIONS NOT LISTED BELOW 2.5 - 3.5 FOR PROSTHETIC HEART VALVE REPLACEMENT 2.5 - 3.5 RECURRENT THROMBOSIS Performed By: #### B MP, BNP #### [facility] [address] [place] [address] Dr. Leni Hamlin PT Coag (PPP) [Time] 11.5 s Normal 9.0-11.6 [facility] Comment on above: Performed By: #### B MP, BNP #### [facility] [address] [place] [address] Dr. Leni Hamlin TROPONIN, HIGH SENSITIVITYon 03-12-2022 HSTROP 12.8 pg/mL Normal 4.0-76.1 [facility] Comment on above: Result Comment: CUT- OFF POINTS HAVE BEEN ESTABLISHED BASED ON THE FOURTH UNIVERSAL DEFINITIONS OF MYOCARDIAL INFARCTION. THE UPPER REFERENCE LIMIT (URL) OF TROPONIN, DEFINED THE 99TH PERCENTILE OF cTnI DISTRIBUTION IN A REFERENCE POPULATION, HAS BEEN CONFIRMED THE DECISION THRESHOLD FOR PA DIAGNOSIS. Performed By: #### B MP, BNP #### [facility] [address] [place] [address] Dr. Leni Hamlin URINE MICROSCOPIC ONLYon BACTERIA NONE SEEN Normal NONE SEEN [facility] Comment on above: Performed By: #### C RP #### [facility] [address] [place] [address] Dr. Leni Hamlin Bacteria identified Cx Nom (U) NOT INDICATED Normal [facility] Comment on above: Performed By: #### C RP #### [facility] [address] [place] [address] Dr. Leni Hamlin CAST NONE SEEN Normal NONE SEEN [facility] Comment on above: Performed By: #### C RP #### [facility] [address] [place] [address] Dr. Leni Hamlin Crystals LM Nom (Urine sed) NONE SEEN Normal NONE SEEN [facility] Comment on above: Performed By: #### C RP #### [facility] [address] [place] [address] Dr. Leni Hamlin Epithelial cells LM Ql (Urine sed) NONE SEEN Normal NONE SEEN /RARE [facility] Comment on above: Performed By: #### C RP #### [facility] [address] [place] [address] Dr. Leni Hamlin MUCOUS MODERATE Abnormal NONE SEEN [facility] Comment on above: Performed By: #### C RP #### [facility] [address] [place] [address] Dr. Leni Hamlin RBC 2-5 Abnormal 0-2 [facility] Comment on above: Performed By: #### C RP #### [facility] [address] [place] [address] Dr. Leni Hamlin WBC NONE SEEN Normal NONE SEEN [facility] Comment on above: Performed By: #### C RP #### [facility] [address] [place] [address] Dr. Leni Hamlin XR RIBS RT PA Tod 2 XR RIBS RT PA CH EXAMINATION: XR RIBS RT PA CH HISTORY: Pain ; posterior right rib pain after syncopal episode and falling COMPARISON: No relevant comparison available. FINDINGS: LUNGS: No significant pulmonary parenchymal abnormalities. PLEURA: No pneumothorax, effusion, or pleural thickening. MEDIASTINUM: No visible mass or adenopathy. CARDIAC: No cardiomegaly or cardiac silhouette abnormality. RIBS: No fracture. OTHER: Degenerative changes of the glenohumeral joints. IMPRESSION: 1. No acute cardiopulmonary process. 2. No visible rib fracture. Electronically authenticated by: CIERA HERNÁNDEZ Date: 2022-03-12 13:35 Normal [facility] Covid-19 PCR (CVDTBH)on 01-09 SARS-CoV-2 (COVID-19) RNA VENESSA+probe Ql (Unsp spec) Not detected Normal NOT DETECTED [facility] Comment on above: Result Comment: This test is not yet approved or cleared by the [place] FDA. When there are no FDA-approved or cleared tests available, and other criteria are met, FDA can make tests available under an emergency access mechanism called an Emergency Use Authorization (EUA). The EUA for this test is supported by the [place] of Health and Human Service's (HHS's) declaration that circumstances exist to justify the emergency use of in vitro diagnostics for the detection and/or diagnosis of the virus that causes COVID-19. This EUA will remain in effect (meaning this test can be used) for the duration of the COVID-19 declaration justifying emergency of IVDs, unless it is terminated or revoked by FDA (after which the test may no longer be used). When diagnostic testing is negative, the possibility of a false negative should be considered in the context of a patient's recent exposures and the presence of clinical signs and symptoms consistent with SARS-CoV-2. Performed By: #### C RP #### [facility] [address] [place] [address] Dr. Leni Hamlin INFLUENZA A AND B AGon 01-25 [facility] SEE BELOW Normal [facility] Comment on above: Result Comment: Nega tive for Flu A protein angiten. Infection due to Flu A cannot be ruled out. Flu A angiten in the sample may be below the detection limit of the test. Performed By: #### C RP #### [facility] [address] [place] [address] Dr. [facility] Normal [facility] Comment on above: Result Comment: Nega tive for Flu B protein antigen. Infection due to Flu B cannot be ruled out. Flu B antigen in the sample may be below the detection limit of the test. Performed By: #### C RP #### [facility] [address] [place] [address] Dr. Leni Hamlin INFLUENZA A AG Negative Normal NEGATIVE SEE COMMENT [facility] Comment on above: Performed By: #### C RP #### [facility] [address] [place] [address] Dr. Leni Hamlin INFLUENZA B AG Negative Normal NEGATIVE SEE COMMENT [facility] Comment on above: Performed By: #### C RP #### [facility] [address] [place] [address] Dr. Leni Hamlin INTERNAL CONTROLS Within Normal Limits Normal Wi thin Normal Limits [facility] Comment on above: Performed By: #### C RP #### [facility] [address] [place] [id number] [address] Leni Hamlin COVID-19 Antigenon 2 COVID-19 Antigen Healthcare Worker?: N Cindy Reference Cindy Reference Negative SARS-CoV+SARS-CoV-2 (COVID-19) Ag [Presence] in Respiratory specimen by Rapid immunoassay Negative for SARS Antigen by JENNIFER COVID19 Blank Space Cindy Disclaimer Negative results, from patients with symptom Cindy Disclaimer onset beyond five days, should be treated as Cindy Disclaimer presumptive and confirmation with a molecular Cindy Disclaimer assay, if necessary, for patient management, Cindy Disclaimer may be performed. Negative results do not rule Cindy Disclaimer out COVID-19 and should not be used as the sole Cindy Disclaimer basis for treatment or patient management Cindy Disclaimer decisions, including infection control decisions. Cindy Disclaimer Negative results should be considered in the Cindy Disclaimer context of a patient's recent exposures, history Cindy Disclaimer and the presence of clinical signs and symptoms Cindy Disclaimer consistent with COVID-19. COVID19 Blank Space Cindy Disclaimer The Cindy SARS Antigen JENNIFER does not differentiate Cindy Disclaimer between SARS-CoV and SARS-CoV-2. COVID19 Blank Space Cindy Disclaimer This test was developed and its performance Cindy Disclaimer characteristic determined by [employer] and Cindy Disclaimer validated at [facility]. This Cindy Disclaimer test has not been FDA cleared or approved. This Cindy Disclaimer test has been authorized by FDA under an Emergency Use Cindy Disclaimer Authorization (EUA). This test has been validated Cindy Disclaimer in accordance with the FDA's Guidance Document (Policy Cindy Disclaimer for Diagnostics Testing in Laboratories Certified to Cindy Disclaimer Perform High Complexity Testing under CLIA prior to Cindy Disclaimer Emergency Use Authorization for Coronavirus Cindy Disclaimer iseas during the Public Health Emergency) Cindy Disclaimer issued on February 11, 2020. This test is only authorized Cindy Disclaimer for the duration of time the declaration that Cindy Disclaimer circumstances exist justifying the authorization of Cindy Disclaimer the emergency use of in vitro diagnostic tests for Cindy Disclaimer detection of SARS-CoV-2 virus and/or diagnosis of Cindy Disclaimer COVID-19 infection under section 564(b)(1) of the Cindy Disclaimer Act, 21 U.S.C. 360bbb-3(b)(1), unless the Cindy Disclaimer authorization is terminated or revoked sooner. PERFORMED BY: [place] [address] PATHOLOGIST ENERGY EFFICIENCY SPECIALIST ZOHAIB JEWELL M.D. [facility] Comment on above: Performed By: #### C OVID-19 CINDY, SOFIANEG #### [facility] [address] [place], [place] [id number] [facility] Cindy Ag Negativeon 12-01-19 Cindy Ag Negative Negative Normal Negative [facility] Comment on above: Result Comment: This is a duplicate Cindy SARS Antigen (JENNIFER) result to be used for statistical tracking purpose only. PERFORMED BY: [place] [address] PATHOLOGIST ENERGY EFFICIENCY SPECIALIST ZOHAIB JEWELL M.D. Performed By: #### C OVID-19 CINDY, SOFIANEG #### [facility] [address] [place], [place] [id number] [facility] Encounters Encounter Date Encounter Type Care Provider Facility Start: 09-16-2023 End: 09-17-2023 ambulatory Urvashi Rawls MD Facility:[facility] Start: 08-27-2023 End: 08-27-2023 ambulatory [facility] Start: 07-09-2023 End: 07-09[facility]23 [facility]: 06-24-2023 End: 06-25-2023 ambulatory Urvashi Rawls MD Facility:[facility] Start: 06-10-2023 End: 06-11-2023 ambulatory Urvashi Rawls MD Facility:[facility] Start: 05-27-2023 End: 05-28-2023 ambulatory Urvashi Rawls MD Facility:[facility] Start: 05-13-2023 End: 05-13-2023 ambulatory [facility] Start: 05-08-2023 ambulatory [facility] Start: 04-09-2023 End: 04-09-2023 ambulatory [facility] Start: 03-29-2023 End: 03-30-2023 ambulatory [facility] Start: 03-26-2023 End: 03-27-2023 ambulatory [facility] Start: 03-26-2023 End: 03-26-2023 ambulatory [facility] Start: 03-15-2023 End: 03-16-2023 ambulatory [facility] Start: 02-27-2023 End: 02-28-[address] [facility] Start: 01-31-2023 End: 02-01-2023 ambulatory ELLIOT Maximino [facility] Start: 01-16-2023 End: 01-16-[address] ELLIOT CHESTER . Facility:[facility] Start: 12-27-[address] ELLIOT CHESTER . Facili ty:[facility] Start: 12-18-2022 End: 12-18-[address] CLIFTON JHAVERI Facility:[facility] Start: 11-07-2022 End: 11-07-2022 ambulatory HOLLY WILHELMSEJALYe [facility] Start: 10-22-2022 End: 10-22-2022 ambulatory MODESTO WAYNEO [facility] Start: 10-01-2022 End: 10-03-2022 Evaluation and management of inpatient DR ELLIOT CHESTER . Facility:[facility] Start: 09-10-2022 End: 09-10-[address] ELLIOT CHESTER . Facility:[facility] Start: 08-24-[address] [facility] Start: 05-22-2022 End: 05-22-2022 ambulatory GAGANDEEP PAREDES Facility:[facility] Start: 05-21-2022 End: 05-21-2022 ambulatory GAGANDEEP PAREDES Facility:[facility] Start: 04-23-2022 End: 04-23-[address] ELLIOT CHESTER . Facility:[facility] Start: 03-23-2022 End: 03-24-2022 ambulatory MODESTO BECERRA Facility:[facility] Start: 03-22-2022 End: 03-23-2022 ambulatory MODESTO BECERRA Facility:[facility] Start: 03-20-2022 End: 03-21-[address] ELLIOT CHESTER . Facility:[facility] Start: 03-13-2022 End: 03-15-2022 Evaluation and management of inpatient DR ELLIOT CHESTER . Facility:[facility] Start: 01-25-2022 End: 01-25-2022 ambulatory GAGANDEEP PAREDES Facility: Payers Date Payer Category Payer Medicare 2022 Unknown 1961 Medicare [id number] 1961 Self-pay 1959 Unknown [id number] 1948 Unknown [id number] 2.16.8 [id number] 1948 Unknown [id number] 2.16.84 [id number] 1948 Unknown [id number] 2.16.84 0.1.789005.3.579.2.593 1948 Unknown [id number] 2.16.84 0.1.210918.3.579.2.593 1948 Unknown [id number] 2.16.84 0.1.059592.3.579.2.593 1948 Unknown [id number] 2.16.84 0.1.688458.3.579.2.593 1948 Unknown [id number] 2.16.84 0.1.371488.3.579.2.593 1948 Unknown [id number] 2.16.84 0.1.321987.3.579.2.593 1948 Unknown [id number] 2.16.84 0.1.894061.3.579.2.593 1948 Unknown [id number] 2.16.84 0.1.265046.3.579.2.593 1948 Unknown [id number] 2.16.84 0.1.043176.3.579.2.593 1948 Unknown [id number] 2.16.84 0.1.665846.3.579.2.593 1948 Unknown [id number] 2.16.84 0.1.570556.3.579.2.593 1948 Unknown [id number] 2.16.84 0.1.336940.3.579.2.593 1948 Unknown [id number] 2.16. 840.1.290321.3.579.2.196 1948 Unknown [id number] 2.16. 840.1.765672.3.579.2.196 1948 Unknown [id number] 2.16. 840.1.220738.3.579.2.196 1948 Unknown [id number] 2.16. 840.1.774428.3.579.2.196 Clinical Notes 03-23-2022 to 08-27-2023 Note Date & Type Note Facility 08-27-2023 Note Patient here for 3 m o follow up SAGAR's. Seeing pain management for his legs he says. Denies chest pain, SOB, and lightheadedness. Not able to tolerate his cpap so it was returned. He is not taking atorvastatin (started by Dr. Quinonez in April) because he said it cost him over $70 for a 30 day supply at [facility]. Lipid profile was done in May 2023. Review of Systems Constitutional: Positive for malaise/fatigue. Musculoskeletal: Positive for arthritis, back pain, joint pain, muscle weakness and myalgias. Neurological: Positive for numbness. All other systems reviewed and are negative. [facility] 05-13-2023 Note Patient here c/o LE numbness and pain during ambulation and standing. He had EMG and SAGAR's in March 2023. He sees Dr. Chester this afternoon. Recently saw neurosurgery and vascular surgery at [facility]. Dr. Quinonez started him on low dose aspirin and atorvastatin last week, which he states he has not started yet. He denies chest pain, SOB, and syncope. Review of Systems Constitutional: Positive for malaise/fatigue. Cardiovascular: Positive for claudication and leg swelling. Musculoskeletal: Positive for arthritis, back pain, muscle weakness and myalgias. All other systems reviewed and are negative. [facility] 05-13-2023 Note [place] Cardiology Note [facility] Reason for visit: lower extremity claudication HPI: Brian Oneal is a 73 y.o. year old with past medical history of SSS s/p PPM. He presents to cardiology clinic for routine follow up. Patient states that he has been experiencing lower extremity claudication (mostly left lower extremity). He has pain with ambulation and with rest, but it is most pronounced with exertion. He has been evaluated by both Neurosurgery and Vascular surgery, and has been diagnosed with neurogenic and vascular claudication. He was started on Aspirin and statin for mild PAD, as per vascular surgery. He denies any cardiac complaints or concerns at the present time. Patient denies any chest pain or shortness of breath. Patient denies any orthopnea or proximal nocturnal dyspnea. No near-syncope or syncope. No dizziness or lightheadedness. He does endorse intermittent lower extremity edema. Right PVR waveform was essentially normal. Left PVR waveform was mildly abnormal. ----- Previous HPI per. Dr. Becerra 04/2022: cc; s/p PPM. He feels that it is difficult to tolerate CPAP machine. Since he has PPM, he has not need to use depends and no urinary continence. He states he has been feeling well since the procedure. He states he feels like he has more energy, can walk longer distances without getting short of breath, and feels like he is sleeping better. Device thresholds are good. HPI 71-year-old gentleman with past medical history of hypertension, kidney stone was seen by PCP for history of syncope and falls which has resulted in a injury to the right side of the ribs and neck. He is also experienced episodes of loss of consciousness for a few seconds and was seen by the PCP who had ordered an event monitor for 7 days. This revealed evidence of significant pauses although most of them are nocturnal there was some that occurred during daytime at 8 AM. 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 The Saturday in which the pause of 5.9 seconds was noted was a time when he slept in. He states that he has to wake up in the middle of the night many times use restroom since his prostate brachytherapy. 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 There are episodes of PVCs in bigeminy pattern with occasional nonsustained VT of 3-4 beats. Nocturnal pauses were noted on 12/08/2021 at 2:30 in the morning as well as other episodes on 12/09/2021 at 1:00 in the morning. A prolonged episode of 6-second pause was noted at 4:00 in the morning on 12/09/2021 and another 4-second episode noted on 12/09/2021 at 8:00 in the morning. Again a 4-second episode was noted on 12/10/2021 at 2:54 in the morning there were episodes of nonsustained atrial tachycardia seen on 12/08/2021 at 3 PM of 5 beats Date of phone call: 2021 Chief Complaint: History of Present Illness: Total time spent in Medical Discussion including obtaining history from the patient, review of labs, tests with the patient, discussion of assessment and plan 30min . The visit was initiated by the patient and conducted [id number] with use of audio-only real time telephone communication between patient and provider for a virtual visit. Verbal consent to provide and bill this service was obtained on: 2021 No signature was obtained due to the COVID-19 pandemic. cc; Sinus pause Patient was noted to have a significant pause of ~10s on 03/16/22 @11:57pm. his PCP was concerned about this and he does endorse fatigue. HPI 71-year-old gentleman with past medical history of hypertension, kidney stone was seen by PCP for history of syncope and falls which has resulted in a injury to the right side of the ribs and neck. He is also experienced episodes of loss of consciousness for a few seconds and was seen by the PCP who had ordered an event monitor for 7 days. This revealed evidence of significant pauses although most of them are nocturnal there was some that occurred during daytime at 8 AM. 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 The Saturday in which the pause of 5.9 seconds was noted was a time when he slept in. He states that he has to wake up in the middle of the night many times (more content not included)... [facility] 05-08-2023 Note This is a 73-year-ol d gentleman with bilateral lower extremity claudication. He has a combination of both neurogenic claudication and vasculogenic claudication. His SAGAR in the right side is 0.89 and on the left side is 0.81. He has mild occlusive disease bilaterally. I discussed with him being on aspirin and statin and supervised walking program. He quit smoking about few months back. He is also seeing pain management for the neurogenic claudication. I will see him in about 3 months. [facility] 05-08-2023 Note HPI Brian Oneal is a 73 y.o. male who is here for New Patient (Numbness in bilateral legs) This is a 73-year-old gentleman with bilateral lower extremity claudication. He has a combination of both neurogenic claudication and vasculogenic claudication. His SAGAR in the right side is 0.89 and on the left side is 0.81. He has mild occlusive disease bilaterally. I discussed with him being on aspirin and statin and supervised walking program. He quit smoking about few months back. He is also seeing pain management for the neurogenic claudication. I will see him in about 3 months. Review of Systems Review of Systems Constitutional: Negative. Negative for chills, decreased appetite, diaphoresis, fever, malaise/fatigue and night sweats. HENT: Negative. Eyes: Negative. Negative for blurred vision, discharge, double vision, pain, photophobia, vision loss in left eye and vision loss in right eye. Cardiovascular: Positive for claudication. Negative for chest pain, cyanosis, dyspnea on exertion, irregular heartbeat, leg swelling, near-syncope, orthopnea, palpitations, paroxysmal nocturnal dyspnea and syncope. Endocrine: Negative. Negative for cold intolerance, heat intolerance, polydipsia, polyphagia and polyuria. Hematologic/Lymphatic: Negative for adenopathy and bleeding problem. Does not bruise/bleed easily. Skin: Negative for color change, dry skin, flushing, itching, nail changes, poor wound healing, rash and skin cancer. Musculoskeletal: Positive for joint swelling and myalgias. Negative for arthritis, back pain, falls, gout, joint pain, muscle cramps, muscle weakness, neck pain and stiffness. Gastrointestinal: Negative. Negative for bloating, abdominal pain, anorexia, change in bowel habit, bowel incontinence, constipation, diarrhea, dysphagia, hematemesis, jaundice, melena, nausea and vomiting. Genitourinary: Negative. Negative for bladder incontinence, dysuria, flank pain and frequency. Neurological: Positive for numbness. Negative for aphonia, brief paralysis, difficulty with concentration, disturbances in coordination, excessive daytime sleepiness, dizziness, focal weakness, headaches, light-headedness, loss of balance, seizures, vertigo and weakness. Psychiatric/Behavioral: Negative. Negative for altered mental status, depression, hallucinations, hypervigilance, memory loss, substance abuse and suicidal ideas. Allergic/Immunologic: Negative. Objective Visit Vitals BP (!) 141/91 Pulse 74 Temp 36.4 ???C (97.5 ???F) Wt 108 kg (237 lb) BMI 36.04 kg/m??? Smoking Status Former BSA 2.28 m??? Physical Exam Constitutional: Appearance: Normal appearance. He is normal weight. HENT: Head: Normocephalic and atraumatic. Nose: Nose normal. Mouth/Throat: Mouth: Mucous membranes are moist. Pharynx: Oropharynx is clear. Eyes: Extraocular Movements: Extraocular movements intact. Conjunctiva/sclera: Conjunctivae normal. Pupils: Pupils are equal, round, and reactive to light. Cardiovascular: Rate and Rhythm: Normal rate and regular rhythm. Pulses: Normal pulses. Heart sounds: Normal heart sounds. Pulmonary: Effort: Pulmonary effort is normal. Breath sounds: Normal breath sounds. Abdominal: General: Abdomen is flat. Bowel sounds are normal. Palpations: Abdomen is soft. Musculoskeletal: General: Normal range of motion. Cervical back: Normal range of motion and neck supple. Skin: General: Skin is warm and dry. Capillary Refill: Capillary refill takes less than 2 seconds. Neurological: General: No focal deficit present. Mental Status: He is alert and oriented to person, place, and time. Mental status is at baseline. Psychiatric: Mood and Affect: Mood normal. Behavior: Behavior normal. Thought Content: Thought content normal. Judgment: Judgment normal. Labs: No results found for: NA, K, CL, BICARB, ANIONGAP, BUN, CREATININE, CALCIUM, MG, PHOS No results found for: BILITOT, BILIDIR, ALKPHOS, AST, ALT, PROT, ALBUMIN No results found for: WBC, ADJUSTEDWBC, RBC, HGB, HCT, MCV, MCH, MCHC, RDW, MPV, NEUTOPHILPCT, LYMPHOPCT, MONOPCT, EOSPCT, BASOPCT, NEUTROABS, LYMPHSABS, MONOSABS, EOSABS, BASOSABS, PLT, NRBC Medications: Current Outpatient Medications on File Prior to Visit Medication Sig Dispense Refill amLODIPine (Norvasc) 5 mg tablet Take 5 mg by mouth in the morning. gabapentin (Neurontin) 100 mg capsule Take 100 mg by mouth in the morning. tiZANidine (Zanaflex) 4 mg tablet Take 8 mg by mouth at bedtime. No current facility-administered medications on file prior to visit. Assessment and Plan: Severe claudication (CMS/HCC) This is a 73-year-old gentleman with bilateral lower extremity claudication. He has a combination of both neurogenic claudication and vasculogenic claudication. His SAGAR in the right side is 0.89 and on the left side is 0.81. He has mild occlusive disease bilaterally. I discussed with him being on aspirin (more content not included)... [facility] 04-09-2023 Note Neurosurgery Clinic Note Chief Complaint: Back pain, claudication. Interval History: Brian Oneal is a 72 y.o. year-old male who presents for follow-up of back and leg symptoms. He notes pain in the low back which worsens with activity and with sitting in positions with lack of lumbar support. His back pain symptoms have not changed greatly since last seen. He continues to use tizanidine and gabapentin at night with some relief. He also continues to have substantial pain and numbness in the bilateral legs when walking which resolves upon sitting. Since last seen, weightbearing x-rays of the lumbar spine and ABIs were performed. A referral had been made to pain management although I do not see a pain management appointment scheduled. In review of the patient's history, he had originally presented originally presented on 03/26/2023 in kind referral from Dr. Chester for evaluation of lumbar degenerative disease with back and leg pain. 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 He undertook some type of decompressive surgery at that time, which she states improved his pain very substantially. 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 He notes that for at least a couple of years he has had numbness in the bilateral legs when walking which resolves when sitting down. This numbness more recently has become painful. He notes that he is slow in walking and feels stiff in the legs and knees. He states that he can only walk up approximately 70 yards before he must sit down because of the way his legs feel. He denies any pain at rest. He also notes pain in the low back which began in December. The pain was initially just inferior to the region of his prior surgery in the midline. It is since migrated somewhat to the left. The back pain is worse with bending and activity. Since the onset of his back pain symptoms, he is undertaken approximately 7 weeks of physical therapy. He has used tizanidine and gabapentin with relatively limited relief. He does use a TENS unit which is quite helpful for his back pain. Because of his ongoing symptoms, an MRI of the lumbar spine was obtained. Due to a question of a possible inflammatory collection adjacent to the spine, a gadolinium enhanced MRI was also obtained. Problem List: Patient Active Problem List Diagnosis Chest pain Edema of lower extremity Syncope Cardiac device in situ Sick sinus syndrome (CMS/HCC) Past Medical History: Past Medical History: Diagnosis Date Hypertension Sick sinus syndrome (CMS/HCC) Sinus bradycardia Sleep apnea Syncope Past Surgical History: Past Surgical History: Procedure Laterality Date APPENDECTOMY BACK SURGERY INSERT / REPLACE / REMOVE PACEMAKER Medications: Current Outpatient Medications Medication Instructions amLODIPine (NORVASC) 5 mg, oral, Daily gabapentin (NEURONTIN) 100 mg, oral, Daily tiZANidine (ZANAFLEX) 8 mg, oral, Nightly Allergies: Allergies Allergen Reactions Azithromycin Review of Systems: Review of Systems Constitutional: Negative for chills, fatigue and fever. Musculoskeletal: Positive for back pain. Neurological: Negative for dizziness, tremors, seizures, syncope, facial asymmetry, speech difficulty, weakness, light-headedness, numbness and headaches. Exam: Vitals: Vitals: 04/09/23 1106 BP: 152/74 Pulse: 80 Temp: 36.6 ???C (97.9 ???F) Body mass index is 34.52 kg/m???. Deferred. Lab: No visits with results within 30 Day(s) from this visit. Latest known visit with results is: Legacy Encounter on 03/22/2022 Component Date Value Ref Range Status Ventricular Rate 03/22/2022 76 BPM Final Atrial Rate 03/22/2022 76 BPM Final SD Interval 03/22/2022 162 ms Final QRS DURATION 03/22/2022 144 ms Final QT Interval 03/22/2022 392 ms Final QTC CALCULATION(BAZETT) 03/22/2022 441 ms Final P Repton 03/22/2022 -14 degrees Final R-Repton 03/22/2022 -20 degrees Final T Wave Repton 03/22/2022 -6 degrees Final Diagnosis 03/22/2022 Final Value:Normal sinus rhythm Right bundle branch block Abnormal ECG When compared with ECG of 22-MAR-2022 15:06, No significant change was found Confirmed by Cammie SMITH, L.S. (2) on 03/23/2022 10:36:29 AM Imaging: XR lumbar spine 2 or 3 views 03/26/2023 Narrative XR LUMBAR SPINE 2-3 VIEWS 03/26/2023 12:06 PM CLINICAL INDICATIONS: Chronic low back pain. Sciatica. COMPARISON: Lumbar spine MRI from 02/27/2023 FINDINGS: 3 views of the lumbar spine are obtained. There are 5 nonrib-bearing lumbar type vertebral bodies visualized. There is bony spurring at multiple levels and disc space narrowing mildly seen at L4-5 and L5-S1 level. There is kissing osteophytes on the left side at L2-3. There is significant vascular calcification seen in the abdominal aorta. Facet joint sclerosis and narrowing most significant at L4-S1 level. No definite e (more content not included)... [facility] 03-26-2023 Note Neurosurgery Consult Chief Complaint: Back and leg pain. History of Present Illness: Brian Oneal is a 72 y.o. male who presents in kind referral from Dr. Chester for evaluation of lumbar degenerative disease with back and leg pain. 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 He undertook some type of decompressive surgery at that time, which she states improved his pain very substantially. 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 He notes that for at least a couple of years he has had numbness in the bilateral legs when walking which resolves when sitting down. This numbness more recently has become painful. He notes that he is slow in walking and feels stiff in the legs and knees. He states that he can only walk up approximately 70 yards before he must sit down because of the way his legs feel. He denies any pain at rest. He also notes pain in the low back which began in December. The pain was initially just inferior to the region of his prior surgery in the midline. It is since migrated somewhat to the left. The back pain is worse with bending and activity. Since the onset of his back pain symptoms, he is undertaken approximately 7 weeks of physical therapy. He has used tizanidine and gabapentin with relatively limited relief. He does use a TENS unit which is quite helpful for his back pain. Because of his ongoing symptoms, an MRI of the lumbar spine was obtained. Due to a question of a possible inflammatory collection adjacent to the spine, a gadolinium enhanced MRI was also obtained. Problem List: Patient Active Problem List Diagnosis Chest pain Edema of lower extremity Syncope Cardiac device in situ Sick sinus syndrome (CMS/HCC) Past Medical History: Past Medical History: Diagnosis Date Hypertension Sick sinus syndrome (CMS/HCC) Sinus bradycardia Sleep apnea Syncope Past Surgical History: Past Surgical History: Procedure Laterality Date APPENDECTOMY BACK SURGERY INSERT / REPLACE / REMOVE PACEMAKER Medications: Current Outpatient Medications: amLODIPine (Norvasc) 5 mg tablet, Take 5 mg by mouth in the morning., Disp: , Rfl: gabapentin (Neurontin) 100 mg capsule, Take 100 mg by mouth in the morning., Disp: , Rfl: tiZANidine (Zanaflex) 4 mg tablet, Take 8 mg by mouth at bedtime., Disp: , Rfl: Allergies: Allergies Allergen Reactions Azithromycin Social History: Social History Socioeconomic History Marital status: Spouse name: Not on file Number of children: Not on file Years of education: Not on file Highest education level: Not on file Occupational History Not on file Tobacco Use Smoking status: Every Day Packs/day: 1.00 Types: Cigarettes Smokeless tobacco: Not on file Substance and Sexual Activity Alcohol use: Not Currently Drug use: Not on file Sexual activity: Not on file Other Topics Concern Not on file Social History Narrative Not on file Social Determinants of Health Financial Resource Strain: Not on file Food Insecurity: Not on file Transportation Needs: Not on file Physical Activity: Not on file Stress: Not on file Social Connections: Not on file Intimate Partner Violence: Not on file Housing Stability: Not on file Family History: Family History Problem Relation Name Age of Onset Coronary artery disease Mother Review of Systems: Review of Systems Musculoskeletal: Positive for back pain and gait problem. Neurological: Positive for weakness and numbness. Exam: Vitals: Vitals: 03/26/23 1043 BP: 135/82 Pulse: 78 Temp: 36.4 ???C (97.6 ???F) Body mass index is 34.61 kg/m???. I/O: @IOBRIEF@ General: Awake, alert, NAD. Well groomed. HEENT: Normocephalic, atraumatic. Neck supple without lymphadenopathy. Heart: Regular rate and rhythm. Lungs: Clear to auscultation bilaterally. Abdomen: Soft, non-tender, non-distended. Bowel sounds present. Extremities: No cyanosis or edema. No noted deformities. Back Exam: Well-healed lumbar midline incision. Neurologic: Appropriate affect during exam. Oriented x 3. Normal fluency and prosody of speech. Content appropriate and higher function appears intact. CN II-XII grossly intact. PERRL. EOMI. Face symmetric strength and sensation. Tongue midline. Shoulder shrug full strength and symmetric. Palate elevates symmetrically. Motor 5/5 throughout. No pronator drift. Sensation intact to light touch throughout. DTR's 2+ and symmetric. Plantar response down-going. Station stooped. Diminished arm swing. No noted tremor. Gait gait symmetric without evidence of shuffling. Broad-based. Able to toe and heel walk. FTN intact. No Alvarez's sign present. No ankle clonus. Lab: No visits with results within 1 Day(s) from this visit. Latest known visit with results is: Legacy Encounter on 03/22/2022 Component Date Value Ref Range (more content not included)... [facility] 11-12-2022 Note -s/p PPM -no concerns on device check, 45% RA paced, 7% RV paved -no concerns at this time for pacing induced cardiomyopathy [facility] 11-12-2022 Note -this is chronic, he does not want to start a diuretic at this time -discussed pending his results from the echo he will have sent over we may need to start some sort of diuretic such as thiazide, MRA, and any additional medications indicated [facility] 11-12-2022 Note -no concerns on sallie ce check -follow up with device check in 6 months [facility] 11-07-2022 Note Patient here for 6 m o follow up sick sinus syndrome and sinus bradycardia. His device was interrogated in the office 2 weeks ago. He was admitted to [facility] last month for c diff. Feeling much better. Denies chest pain, SOB, and palpitations. Was not able to tolerate cpap machine. Review of Systems Constitutional: Positive for malaise/fatigue. Musculoskeletal: Positive for arthritis, back pain, muscle weakness and myalgias. All other systems reviewed and are negative. [facility] 11-07-2022 Note [place] [facility] Note [facility] Reason for visit: 6 month follow up HPI: Brian Oneal is a 72 y.o. year old with past medical history of SSS s/p PPM He had recent device check which showed 3 short episodes of NSVT all <6second, patient denies feeling any palpitations or symptoms that he recalls. Otherwise had normal device function pacing 45% RA and 7% RV with good lead thresholds and impedence. He states he recently admitted for c-diff at [facility] after recently being on antibiotics, he had no complications while inpatient. He does have LE swelling which he states is unchanged compared to previous visit, his weight today is 101kg vs last visit on 04/2022 was 105kg He states [facility], he will have this faxed to us for results, would like results to have updated information regarding heart since he does have history of fatigue and SOB ----- Previous HPI per. Dr. Becerra 04/2022: cc; s/p PPM. He feels that it is difficult to tolerate CPAP machine. Since he has PPM, he has not need to use depends and no urinary continence. He states he has been feeling well since the procedure. He states he feels like he has more energy, can walk longer distances without getting short of breath, and feels like he is sleeping better. Device thresholds are good. HPI 71-year-old gentleman with past medical history of hypertension, kidney stone was seen by PCP for history of syncope and falls which has resulted in a injury to the right side of the ribs and neck. He is also experienced episodes of loss of consciousness for a few seconds and was seen by the PCP who had ordered an event monitor for 7 days. This revealed evidence of significant pauses although most of them are nocturnal there was some that occurred during daytime at 8 AM. 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 The Saturday in which the pause of 5.9 seconds was noted was a time when he slept in. He states that he has to wake up in the middle of the night many times use restroom since his prostate brachytherapy. 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 There are episodes of PVCs in bigeminy pattern with occasional nonsustained VT of 3-4 beats. Nocturnal pauses were noted on 12/08/2021 at 2:30 in the morning as well as other episodes on 12/09/2021 at 1:00 in the morning. A prolonged episode of 6-second pause was noted at 4:00 in the morning on 12/09/2021 and another 4-second episode noted on 12/09/2021 at 8:00 in the morning. Again a 4-second episode was noted on 12/10/2021 at 2:54 in the morning there were episodes of nonsustained atrial tachycardia seen on 12/08/2021 at 3 PM of 5 beats Date of phone call: 2021 Chief Complaint: History of Present Illness: Total time spent in Medical Discussion including obtaining history from the patient, review of labs, tests with the patient, discussion of assessment and plan 30min . The visit was initiated by the patient and conducted [id number] with use of audio-only real time telephone communication between patient and provider for a virtual visit. Verbal consent to provide and bill this service was obtained on: 2021 No signature was obtained due to the COVID-19 pandemic. cc; Sinus pause Patient was noted to have a significant pause of ~10s on 03/16/22 @11:57pm. his PCP was concerned about this and he does endorse fatigue. HPI 71-year-old gentleman with past medical history of hypertension, kidney stone was seen by PCP for history of syncope and falls which has resulted in a injury to the right side of the ribs and neck. He is also experienced episodes of loss of consciousness for a few seconds and was seen by the PCP who had ordered an event monitor for 7 days. This revealed evidence of significant pauses although most of them are nocturnal there was some that occurred during daytime at 8 AM. 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 The Saturday in which the pause of 5.9 seconds was noted was a time when he slept in. He states that he has to wake up in the middle of the night many times use restroom since his prostate brachytherapy. He does snore at has not been officially ev (more content not included)... [facility] 03-23-2022 Note EXAM: XR CHEST 2 V HISTORY: Permanent cardiac pacemaker procedure EXAM: XR CHEST 2 V INDICATION: 71 years old Male Permanent cardiac pacemaker procedure COMPARISON: 03/12/22. FINDINGS: The cardiac silhouette is normal. There is no pulmonary edema. The lungs are clear.pacer is noted. There is no pneumonia. There is no pneumothorax. There is no abnormal foreign body. IMPRESSION: There is no acute abnormality. Electronically authenticated by: ALONSO MASON Date: 2022-03-23 12:58 [facility] Summary Purpose Family History No Family History Records FoundNo Family History Records FoundNo Family History Records FoundNo Family History Records FoundNo Family History Records Found Advance Directives No Advanced Directives Records FoundNo Advanced Directives Records FoundNo Advanced Directives Records FoundNo Advanced Directives Records FoundNo Advanced Directives Records Found Additional Source Comments (unrecognized sect ion and content) No Status Records FoundNo Status Records FoundNo Status Records FoundNo Status Records FoundNo Status Records Found INFORMATION SOURCE (unrecogn ized section and content) DATE CREATED AUTHOR 01/29/2022 [facility] DATE CREATED AUTHOR AUTHOR'S ORGANIZ ATION 04/23/2022 [facility] DATE CREATED AUTHOR AUTHOR'S ORGANIZ ATION 01/18/2023 [facility] DATE CREATED AUTHOR AUTHOR'S ORGANIZ ATION 08/28/2023 [facility] DATE CREATED AUTHOR AUTHOR'S ORGANIZ ATION 09/19/2023 [facility] FOR RECORDS PERTAINING TO PATIENTS WHO ARE OR HAVE BEEN ENROLLED IN A CHEMICAL DEPENDENCY/SUBSTANCEABUSE PROGRAM, SOME INFORMATION MAY BE OMITTED. This clinical summary was aggregated from multiple sources. Caution should be exercised in using it in the provision of clinical care. This summary normalizes information from multiple sources, and as a consequence, information in this document may materially change the coding, format and clinical context of patient data. In addition, data may be omitted in some cases. CLINICAL DECISIONS SHOULD BE BASED ON THE PRIMARY CLINICAL RECORDS. [facility] [employer] [facility]. provides no warranty or guarantee of the accuracy or completeness of information in this document.
[2023-11-20 10:06] LABS: SARS-CoV-2 Ag POSITIVE (NEGATIVE)
== END 2023-11-20 09:34 | disposition home or self-care (01) ==
LOC: LAB 09:33
PROVIDERS: PCP Family Medicine; Visit Provider Family Medicine
DX: R09.81 Nasal congestion (principal)
CPT/HCPCS: 87811

== ENCOUNTER 2023-12-25 13:48 | Outpatient (OUT) | payer MEDICARE, OTHER, SELFPAY ==
--- NOTE | 2023-12-25 14:30 | P.CN_ITS ---
Consult Note: HPI Data of Consult Patient: known to practice within the last 3 years Requesting Physician: Gisele Rodriguez NP Primary Care Provider: Jaron Chester MD Consult Narrative Reason for consult: f/u Narrative: Brian Oneal a pleasant 73 year old male presents for evaluation and management of low back pain. 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 Pain today 05/20, AHMET 24%. Patient finding mild benefit to gabapentin 200mg daytime and 300mg HS. Patient continues to have moderate to severe pain that is radiating in right low back and to right leg, increased with activity, standling, walking. Patient would like to discuss injection therapy as he previously had >3 months response to ESIs. cc:: CC: Gisele Rodriguez NP Review of Systems ROS Status of ROS 10 or more systems reviewed and unremark able except as noted in history and below Musculoskeletal Reports: back pain and extremity pain PFSH PFSH Medical History Low back pain ?M54.50 - Low back pain, unspecified (ICD-10) Glaucoma ?H40.9 - Unspecified glaucoma (ICD-10) H/O prostate cancer ?Z85.46 - Personal history of malignant neoplasm of prostate (ICD-10) Numbness and tingling ?R20.0 - Anesthesia of skin (ICD-10) ?R20.2 - Paresthesia of skin (ICD-10) Former smoker ?Z87.891 - Personal history of nicotine dependence (ICD-10) Irregular heart beat ?I49.9 - Cardiac arrhythmia, unspecified (ICD-10) Hypertension ?I10 - Essential (primary) hypertension (ICD-10) Pacemaker ?Z95.0 - Presence of cardiac pacemaker (ICD-10) Surgical History H/O lumbosacral spine surgery ?Z98.890 - Other specified postprocedural states (ICD-10) History of appendectomy ?Z90.49 - Acquired absence of other specified parts of digestive tract (ICD- 10) Meds Home Medications and Allergies Home Medications Medication Instructions Recorded Confirmed Type amlodipine 5 mg tablet 5 mg PO .QD 05/27/23 09/16/23 History gabapentin 100 mg capsule 100 mg PO .HS 07/17/23 11/06/23 History tizanidine 4 mg tablet 8 mg PO .HS 05/27/23 09/16/23 History Allergies Allergy/AdvReac Type Severity Reaction Status Date / Time Z PACK Allergy Uncoded 09/16/23 08:42 Exam Constitutional Documenting provider has reviewed patient's vital signs: yes Common normals: no apparent distress, oriented x3, healthy appearing, alert and well nourished General appearance: cooperative HENMT Common normals: normocephalic, hearing grossly normal bilaterally and moist oral mucous membranes Head and scalp: normocephalic Eye Common normals: PERRL Pupil: PERRL Neck & C-Spine Common normals: full ROM General: normal visual inspection Chest Common normals: inspection of chest normal Respiratory Common normals: normal respiratory effort, no retractions and no use of accessory muscles Back & Pelvis Thoracic spine/upper back: ROM limited Lumbar spine/lower back: ROM limited, pain with ROM (mild) and straight leg raise positive right Sacroiliac joints: SI joints normal Other: radicular pain intermittent positive facet loading left greater than right Extremity Common normals: normal to inspection, full ROM, no calf tenderness and no pedal edema Neuro Common normals: oriented x3, CN's II-XII intact bilaterally, moves all extremities, no focal motor deficits, no sensory deficits noted and deep tendon reflexes 2+ bilaterally Sensorium/orientation: alert Motor exam: no movement abnormalities noted and strength abnormal (4/5 in RLE) Psych Common normals: mental status grossly normal, thought process normal, cooperative, affect normal, speech normal and activity/motor behavior normal Speech: normal speech Thought process: normal thought process Results Additional Findings Additional findings: I have checked an OARRS report on this patient today and there are no aberrancies noted in the prescribing history.?? A drug screen was completed and reviewed within the last year, and if there has not been a drug screen completed we ordered one today to monitor higher risk, state monitored pain medication use. As part of providing excellent, safe, comprehensive care, the following was completed at our patient's visit: 1. A medication reconciliation and review to ensure accurate knowledge of current/active medications, including asking our patients to inform us about any [id number] medications or herbal remedies/nutritional supplements/alt ernative remedies. 2. A review to specifically ensure our patients have had annual screening for: elevated body mass index (BMI), tobacco use, screening for depression, and screening for unhealthy alcohol use. When screening is concerning, patients are provided with education and the specific recommendation to discuss the concerning health issue and treatment options with their primary care provider. Assessment and Plan Assessment and Plan (1) Lumbar radiculopathy: (2) Osteoarthritis: (3) Lumbar spondylosis: Plan right L2-3 L5-S1 TFESI under fluoroscopy, risks vs benefits discussed continue gabapentin 300mg HS, 100mg daily-BID f/u 2 weeks after injection
== END 2023-12-25 13:49 | disposition home or self-care (01) ==
LOC: PM 13:49
PROVIDERS: PCP Family Medicine; Visit Provider Nurse Practitioner
DX: M54.16 Radiculopathy, lumbar region (principal); M19.90 Unspecified osteoarthritis, unspecified site; M47.816 Spondylosis without myelopathy or radiculopathy, lumbar region
CPT/HCPCS: G0463

== ENCOUNTER 2023-12-30 09:04 | Day surgery (SDC) | payer MEDICARE, OTHER, SELFPAY ==
--- OUTSIDE RECORDS SUMMARY | 2023-12-30 09:08 | XMS_ITS | CCD ---
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 Name Role Phone MODESTO BECERRA Admitting Unavailable [...] Azithromycin; Translations: [AZITHROMYCIN] Drug Allergy 2 [facility] Repository (2 sources) Azithromycin Drug Allergy 5 [facility] Repository (1 source) Ciprofloxacin Drug Allergy 3 [facility] Repository (1 source) ALLERGIES NOT ON FILE; Translations: [ALLERGIES NOT ON FILE] Propensity to adverse reactions (disorder) [facility] Repository Problems Active Problems Problem Classification Problem [...] 10-01-2022 Episodic Other aftercare (1 source) Other [facility] (current) drug therapy; Translations: [OTH ELECTROLYTIC ETCHER CURRENT DRUG THERAPY] Onset: 03-19-2022 Episodic Pneumonia [...] Range Facility Office Visiton 05-13-2023 Follow-up visit [id number] Wayne Oneal 1950 M Date Provider Department Center 05/13/2023 Kain-MAJOR HARRISON Family History Problem Relation Age of Onset Coronary artery disease Mother Family Status - Relation Status Age at Mother Level of Service:92681 [place] OFFICE/OUTPATIENT ESTABLISHED MOD MDM 30-39 MIN Normal [facility] Orders Onlyon 05-13-2023 Orders Only [id number] Wayne Oneal A 1950 M Date Provider Department Center 05/13/2023 Royal-BRAYAN AU RAMAKRISHNA [facility] Family History Problem Relation Age of Onset Coronary artery disease Mother Family Status - Relation Status Age at Mother [facility] 29on 05-08-2023 29 Addended by: LEANA HENNING on: 05/09/2023 01:46 PM Modules accepted: Orders [facility] Consulton 05-08-2023 Consult [id number] Wayne Oneal A 1950 M Date Provider Department Center 05/08/2023 384-JOSE QUINONEZ HVCVASENDO [facility] Family History Problem Relation Age of Onset Coronary artery disease Mother Family Status - Relation Status Age at Mother Level of Service:16499 [place] OFFICE/OUTPATIENT NEW MODERATE MDM 45-59 MINUTES Reason for Visit and Comments: New Patient [632] - Numbness in bilateral legs [facility] Follow-Upon 04-09-2023 Follow-Up [id number] Wayne Oneal A 1950 Date Provider Department Center 04/09/2023 [id number] JUAN [facility] Second Fl Family History Problem Relation Age of Onset Coronary artery disease Mother Family Status - Relation Status Age at Mother Level of Service:20912 [place] OFFICE/OUTPATIENT ESTABLISHED LOW MDM 20-29 MIN Reason for Visit and Comments: Follow-up [218865] - follow up s/p SAGAR, XR; When patient bends over it tends to pull his back muscles and when he gets back up he is in pain. Walking a long distance he is in lots of pain. [facility] 36on 04-02-2023 36 Pt was called and scheduled a follow up with Dr. Chacon to review results. [facility] 36 Brian is asking fo r an answer to left lower back pain. Had the US done and is not having any relief in his back. [facility] Telephoneon 04-02-2023 Telephone [id number] Wayne Oneal A 1950 Date Provider Department Center 04/02/2023 [id number] VAZQUEZ [facility] Second Fl Family History Problem Relation Age of Onset Coronary artery disease Mother Family Status - Relation Status Age at Mother Normal [facility] Consulton 03-26-2023 Consult [id number] Wayne Oneal 1950 M Date Provider Department Center 03/26/2023 RADU QUEVEDO [facility] Second Fl Family History Problem Relation Age of Onset Coronary artery disease Mother Family Status - Relation Status Age at Mother Level of Service:63722 [place] OFFICE/OUTPATIENT NEW MODERATE MDM 45-59 MINUTES Reason for Visit and Comments: Consult [484] - Pt is here for a CO visit for Osteophyte. Normal [facility] MR LUMBAR SPINE W AND WO CON [...] previous results Electronically signed: Asher Tomlinson. Normal [facility] Comment on above: Order Comment: Order in [...] appropriate caregiver. Electronically signed: Renu Han. Normal [facility] Comment on above: Order Comment: Order in EPIC NURSNOTEon 01-31-2023 NURSNOTE Patient tolerated well Normal [facility] NURSNOTE 1325 Patient arrived Biotronik at bedside placed patient Automatic MRI mode DDO paced at 70bpm. Patient on Monitor,continuous ECG, BP q 15min and SPO2 Normal [facility] NURSNOTE Exam completed and patient showed original settings after away from gantry. Normal [facility] Covid-19 PCR (CVDTB)on SARS-CoV-2 (COVID-19) RNA VENESSA+probe Ql (Unsp spec) Not detected Normal NOT DETECTED [facility] Comment on above: Result Comment: When [...] for this test is supported by the School Age Teacher of Health and Human Service's declaration that [...] Performed By: #### B MP, BNP #### [facility] [address] [place] [address] Dr. Leni Hamlin INFLUENZA A [facility] Normal [facility] Comment on above: Result Comment: Nega tive for Flu A protein angiten. Infection due to Flu A cannot be ruled out. Flu A angiten in the sample may be below the detection limit of the test. Performed By: #### C RP #### [facility] [address] [place] [address] Dr. [facility] Normal [facility] Comment on above: Result Comment: Nega tive for Flu B protein antigen. Infection due to Flu B cannot be ruled out. Flu B antigen in the sample may be below the detection limit of the test. Performed By: #### C RP #### [facility] [address] [place] [address] Dr. Leni Hamlin INFLUENZA A AG Negative Normal NEGATIVE SEE COMMENT [facility] Comment on above: Performed By: #### C RP #### [facility] [address] [place] [address] Dr. Leni Hamlin INFLUENZA B AG Negative Normal NEGATIVE SEE COMMENT [facility] Comment on above: Performed By: #### C #### [facility] [address] [address] LSPINE WO CONon [...] CIERA HERNÁNDEZ Date: 2022-12-18 15:56 Normal [facility] Office Visiton 11-07-2022 Follow-up visit [id number] Wayne Oneal 1950 Date Provider Department Center 11/07/2022 HOLLY HILARIO [facility] Family History Problem Relation Age of Onset Coronary artery disease Mother Family Status - Relation Status Age at Mother Level of Service:86292 [place] OFFICE/OUTPATIENT ESTABLISHED [facility] 10-19 MIN Reason for Visit and Comments: sick sinus syndrome [Other] sinus bradycardia [Other] Normal [facility] CBC AUTO DIFFon 10-03-2022 BASO # 0.1 103/ul Normal 0.0-0.1 [facility] Comment on above: Performed By: #### B MP, BNP #### [facility] [address] [place] [address] Dr. Leni Hamlin Basophils/100 WBC (Bld) 0.5 % Normal 0.2-2.0 [facility] Comment on above: Performed By: #### B MP, BNP #### [facility] [address] [place] [address] Dr. Leni Hamlin EO # 0.3 103/ul Normal 0.0-0.7 [facility] Comment on above: Performed By: #### B MP, BNP #### [facility] [address] [place] [address] Dr. Leni Hamlin Eosinophils/100 WBC (Bld) 2.2 % Normal 0.9-7.0 [facility] Comment on above: Performed By: #### B MP, BNP #### [facility] [address] [place] [address] Dr. Leni Hamlin Erythrocyte distribution width (RBC) [Ratio] 13.3 % Normal 11.0-15.0 [facility] Comment on above: Performed By: #### B MP, BNP #### [facility] [address] [place] [address] Dr. Leni Hamlin Hematocrit (Bld) [Volume fraction] 46.9 % Normal 42.0-54.0 [facility] Comment on above: Performed By: #### B MP, BNP #### [facility] [address] [place] [address] Dr. Leni Hamlin Hemoglobin (Bld) [Mass/Vol] 15.3 g/dL Normal 14.0-18.0 [facility] Comment on above: Performed By: #### B MP, BNP #### [facility] [address] [address] [address] Leni Hamlin IG # 0.18 10e3/ul Critically high 0.00-0.03 [facility] Comment on above: Performed By: #### B MP, BNP #### [facility] [address] [address] [address] Leni Hamlin IG % 1.3 % Critically high 0.0-0.5 [facility] Comment on above: Performed By: #### B MP, BNP #### [facility] [address] [address] [address] Leni Hamlin LYMPH # 1.9 103/ul Normal 1.2-3.8 [facility] Comment on above: Performed By: #### B MP, BNP #### [facility] [address] [place] [address] Dr. Leni Hamlin Lymphocytes/100 WBC (Bld) 13.6 % Critically low 20.5-60.0 [facility] Comment on above: Performed By: #### B MP, BNP #### [facility] [address] [place] [address] Dr. Leni Hamlin MANUAL DIFF REQ NO Normal [facility] Comment on above: Performed By: #### B MP, BNP #### [facility] [address] [place] [address] Dr. Leni Hamlin MCH (RBC) [Entitic mass] 29.2 pg Normal 25.9-34.0 [facility] Comment on above: Performed By: #### B MP, BNP #### [facility] [address] [place] [address] Dr. Leni Hamlin MCHC (RBC) [Mass/Vol] 32.6 g/dL Normal 29.9-35.2 [facility] Comment on above: Performed By: #### B MP, BNP #### [facility] [address] [place] [address] Dr. Leni Hamlin MCV (RBC) [Entitic vol] 89.5 fL Normal 80.0-94.0 [facility] Comment on above: Performed By: #### B MP, BNP #### [facility] [address] [address] [address] Leni Hamlin MONO # 0.9 103/ul Critically high 0.3-0.8 [facility] Comment on above: Performed By: #### B MP, BNP #### [facility] [address] [address] [address] Leni Hamlin Monocytes/100 WBC (Bld) 6.6 % Normal 1.7-12.0 [facility] Comment on above: Performed By: #### B MP, BNP #### [facility] [address] [address] [address] Leni Hamlin NEUT # 10.4 103/ul Critically high 1.4-6.5 [facility] Comment on above: Performed By: #### B MP, BNP #### [facility] [address] [place] [address] Dr. Leni Hamlin Neutrophils/100 WBC (Bld) 75.8 % Critically high 43.0-75.0 [facility] Comment on above: Performed By: #### B MP, BNP #### [facility] [address] [place] [address] Dr. Leni Hamlin Platelet mean volume (Bld) [Entitic vol] 10.6 fL Normal 9.5-13.5 [facility] Comment on above: Performed By: #### B MP, BNP #### [facility] [address] [address] [address] Leni Hamlin PLT 143 103/ul Critically low 150-450 [facility] Comment on above: Performed By: #### B MP, BNP #### [facility] [address] [place] [address] Dr. Leni Hamlin RBC 5.24 106/ul Normal 4.70-6.10 [facility] Comment on above: Performed By: #### B MP, BNP #### [facility] [address] [place] [address] Dr. Leni Hamlin WBC 13.7 103/ul Critically high 4.0-11.0 [facility] Comment on above: Performed By: #### B MP, BNP #### [facility] [address] [address] [address] Leni Hamlin CRPon 10-03-2022 CRP 7.6 mg/dL Critically high <=1.0 [facility] Comment on above: Performed By: #### C MP, CRP #### [facility] [address] [address] [address] Leni Hamlin PROF 14(COMP METB)on 022 Albumin [Mass/Vol] 2.5 g/dL Critically low 3.4-5.0 Th [facility] Comment on above: Performed By: #### C MP, CRP #### [facility] [address] [address] [address] Leni Hamlin Albumin/Globulin [Mass ratio] 0.7 {ratio} Normal [facility] Comment on above: Performed By: #### C MP, CRP #### [facility] [address] [address] [address] Leni Hamlin ALP [Catalytic activity/Vol] 54 U/L Normal 46-116 [facility] Comment on above: Performed By: #### C MP, CRP #### [facility] [address] [address] [address] Leni Hamlin ALT [Catalytic activity/Vol] 11 U/L Critically low 16-63 [facility] Comment on above: Performed By: #### C MP, CRP #### [facility] [address] [address] [address] Leni Hamlin Anion gap [Moles/Vol] 8.8 mmol/L Normal [facility] Comment on above: Performed By: #### C MP, CRP #### [facility] [address] [address] [address] Leni Hamlin AST [Catalytic activity/Vol] 9 U/L Critically low 15-37 [facility] Comment on above: Performed By: #### C MP, CRP #### [facility] [address] [address] [address] Leni Hamlin Bilirubin [Mass/Vol] 0.3 mg/dL Normal 0.2-1.0 [facility] Comment on above: Performed By: #### C MP, CRP #### [facility] [address] [place] [address] Dr. Leni Hamlin Calcium [Mass/Vol] 8.6 mg/dL Normal 8.5-10.1 [facility] Comment on above: Performed By: #### C MP, CRP #### [facility] [address] [place] [address] Dr. Leni Hamlin Chloride [Moles/Vol] 103 mmol/L Normal 98-107 [facility] Comment on above: Performed By: #### C MP, CRP #### [facility] [address] [place] [address] Dr. Leni Hamlin CO2 [Moles/Vol] 29.2 mmol/L Normal 21.0-32.0 [facility] Comment on above: Performed By: #### C MP, CRP #### [facility] [address] [place] [address] Dr. Leni Hamlin Creatinine [Mass/Vol] 1.20 mg/dL Normal 0.70-1.30 [facility] Comment on above: Performed By: #### C MP, CRP #### [facility] [address] [place] [address] Dr. Leni Hamlin EGFR-AF [place] >60 Normal >=60 [facility] Comment on above: Performed By: #### C MP, CRP #### [facility] [address] [place] [address] Dr. Leni Hamlin EGFR-NON AF [place] 59 mL/min/1.73m2 Critically low >=60 [facility] Comment on above: Performed By: #### C MP, CRP #### [facility] [address] [place] [address] Dr. Leni Hamlin Globulin (S) [Mass/Vol] 3.4 g/dL Normal [facility] Comment on above: Performed By: #### C MP, CRP #### [facility] [address] [place] [address] Dr. Leni Hamlin Glucose [Mass/Vol] 108 mg/dL Critically high 74-106 T [facility] Comment on above: Performed By: #### C MP, CRP #### [facility] [address] [place] [address] Dr. Leni Hamlin Potassium [Moles/Vol] 4.0 mmol/L Normal 3.5-5.1 [facility] Comment on above: Performed By: #### C MP, CRP #### [facility] [address] [place] [address] Dr. Leni Hamlin Protein [Mass/Vol] 5.9 g/dL Critically low 6.4-8.2 Th [facility] Comment on above: Performed By: #### C MP, CRP #### [facility] [address] [place] [address] Dr. Leni Hamlin Sodium [Moles/Vol] 137 mmol/L Normal 136-145 [facility] Comment on above: Performed By: #### C MP, CRP #### [facility] [address] [place] [address] Dr. Leni Hamlin Urea nitrogen [Mass/Vol] 15.0 mg/dL Normal 7.0-18.0 [facility] Comment on above: Performed By: #### C MP, CRP #### [facility] [address] [place] [address] Dr. Leni Hamlin Urea nitrogen/Creatinine [Mass ratio] 12.5 mg/mg Normal [facility] Comment on above: Performed By: #### C MP, CRP #### [facility] [address] [place] [address] Dr. Leni Hamlin CBC AUTO DIFFon 10-02-2022 BASO # 0.1 103/ul Normal 0.0-0.1 [facility] Comment on above: Performed By: #### C MP, CRP #### [facility] [address] [place] [address] Dr. eLni Hamlin Basophils/100 WBC (Bld) 0.5 % Normal 0.2-2.0 [facility] Comment on above: Performed By: #### C MP, CRP #### [facility] [address] [place] [address] Dr. Leni Hamlin EO # 0.2 103/ul Normal 0.0-0.7 [facility] Comment on above: Performed By: #### C MP, CRP #### [facility] [address] [place] [address] Dr. Leni Hamlin Eosinophils/100 WBC (Bld) 1.6 % Normal 0.9-7.0 [facility] Comment on above: Performed By: #### C MP, CRP #### [facility] [address] [place] [address] Dr. Leni Hamlin Erythrocyte distribution width (RBC) [Ratio] 13.4 % Normal 11.0-15.0 [facility] Comment on above: Performed By: #### C MP, CRP #### [facility] [address] [place] [address] Dr. Leni Hamlin Hematocrit (Bld) [Volume fraction] 46.6 % Normal 42.0-54.0 [facility] Comment on above: Performed By: #### C MP, CRP #### [facility] [address] [place] [address] Dr. Leni Hamlin Hemoglobin (Bld) [Mass/Vol] 15.1 g/dL Normal 14.0-18.0 [facility] Comment on above: Performed By: #### C MP, CRP #### [facility] [address] [place] [address] Dr. Leni Hamlin IG # 0.21 10e3/ul Critically high 0.00-0.03 [facility] Comment on above: Performed By: #### C MP, CRP #### [facility] [address] [place] [address] Dr. Leni Hamlin IG % 1.4 % Critically high 0.0-0.5 [facility] Comment on above: Performed By: #### C MP, CRP #### [facility] [address] [place] [address] Dr. Leni Hamlin LYMPH # 1.9 103/ul Normal 1.2-3.8 [facility] Comment on above: Performed By: #### C MP, CRP #### [facility] [address] [place] [address] Dr. Leni Hamlin Lymphocytes/100 WBC (Bld) 12.4 % Critically low 20.5-60.0 [facility] Comment on above: Performed By: #### C MP, CRP #### [facility] [address] [place] [address] Dr. Leni Hamlin MANUAL DIFF REQ NO Normal [facility] Comment on above: Performed By: #### C MP, CRP #### [facility] [address] [place] [address] Dr. Leni Hamlin MCH (RBC) [Entitic mass] 28.9 pg Normal 25.9-34.0 [facility] Comment on above: Performed By: #### C MP, CRP #### [facility] [address] [place] [address] Dr. Leni Hamlin MCHC (RBC) [Mass/Vol] 32.4 g/dL Normal 29.9-35.2 [facility] Comment on above: Performed By: #### C MP, CRP #### [facility] [address] [place] [address] Dr. Leni Hamlin MCV (RBC) [Entitic vol] 89.3 fL Normal 80.0-94.0 [facility] Comment on above: Performed By: #### C MP, CRP #### [facility] [address] [place] [address] Dr. Leni Hamlin MONO # 1.1 103/ul Critically high 0.3-0.8 [facility] Comment on above: Performed By: #### C MP, CRP #### [facility] [address] [place] [address] Dr. Leni Hamlin Monocytes/100 WBC (Bld) 6.9 % Normal 1.7-12.0 [facility] Comment on above: Performed By: #### C MP, CRP #### [facility] [address] [place] [address] Dr. Leni Hamlin NEUT # 11.8 103/ul Critically high 1.4-6.5 [facility] Comment on above: Performed By: #### C MP, CRP #### [facility] [address] [address] [address] Leni Hamlin Neutrophils/100 WBC (Bld) 77.2 % Critically high 43.0-75.0 [facility] Comment on above: Performed By: #### C MP, CRP #### [facility] [address] [address] [address] Leni Hamlin Platelet mean volume (Bld) [Entitic vol] 10.5 fL Normal 9.5-13.5 [facility] Comment on above: Performed By: #### C MP, CRP #### [facility] [address] [address] [address] Leni Hamlin PLT 138 103/ul Critically low 150-450 [facility] Comment on above: Performed By: #### C MP, CRP #### [facility] [address] [address] [address] Leni Hamlin RBC 5.22 106/ul Normal 4.70-6.10 [facility] Comment on above: Performed By: #### C MP, CRP #### [facility] [address] [address] [address] Leni Hamlin WBC 15.3 103/ul Critically high 4.0-11.0 [facility] Comment on above: Performed By: #### C MP, CRP #### [facility] [address] [address] [address] Leni Hamlin CRPon 10-02-2022 CRP 13.7 mg/dL Critically high <=1.0 [facility] Comment on above: Performed By: #### C VDAGS #### [facility] [address] [address] [address] Leni Hamlin PROF 14(COMP METB)on 022 Albumin [Mass/Vol] 2.5 g/dL Critically low 3.4-5.0 Th [facility] Comment on above: Performed By: #### C VDAGS #### [facility] [address] [address] [address] Leni Hamlin Albumin/Globulin [Mass ratio] 0.8 {ratio} Normal [facility] Comment on above: Performed By: #### C VDAGS #### [facility] [address] [address] [address] Leni Hamlin ALP [Catalytic activity/Vol] 54 U/L Normal 46-116 [facility] Comment on above: Performed By: #### C VDAGS #### [facility] [address] [address] [address] Leni Hamlin ALT [Catalytic activity/Vol] 13 U/L Critically low 16-63 [facility] Comment on above: Performed By: #### C VDAGS #### [facility] [address] [address] [address] Leni Hamlin Anion gap [Moles/Vol] 10.6 mmol/L Normal [facility] Comment on above: Performed By: #### C VDAGS #### [facility] [address] [place] [address] Dr. Leni Hamlin AST [Catalytic activity/Vol] 9 U/L Critically low 15-37 [facility] Comment on above: Performed By: #### C VDAGS #### [facility] [address] [address] [address] Leni Hamlin Bilirubin [Mass/Vol] 0.3 mg/dL Normal 0.2-1.0 [facility] Comment on above: Performed By: #### C VDAGS #### [facility] [address] [address] Dr. Leni Hamlin Calcium [Mass/Vol] 8.5 mg/dL Normal 8.5-10.1 [facility] Comment on above: Performed By: #### C VDAGS #### [facility] [address] [address] [address] Leni Hamlin Chloride [Moles/Vol] 104 mmol/L Normal 98-107 [facility] Comment on above: Performed By: #### C VDAGS #### [facility] [address] [address] [address] Leni Hamlin CO2 [Moles/Vol] 27.5 mmol/L Normal 21.0-32.0 [facility] Comment on above: Performed By: #### C VDAGS #### [facility] [address] [address] [address] Leni Hamlni Creatinine [Mass/Vol] 1.26 mg/dL Normal 0.70-1.30 [facility] Comment on above: Performed By: #### C VDAGS #### [facility] [address] [address] [address] Leni Hamlin EGFR-AF [place] >60 Normal >=60 [facility] Comment on above: Performed By: #### C VDAGS #### [facility] [address] [address] [address] Leni Hamlin EGFR-NON AF [place] 56 mL/min/1.73m2 Critically low >=60 [facility] Comment on above: Performed By: #### C VDAGS #### [facility] [address] [address] [address] Leni Hamlin Globulin (S) [Mass/Vol] 3.3 g/dL Normal [facility] Comment on above: Performed By: #### C VDAGS #### [facility] [address] [address] [address] Leni Hamlin Glucose [Mass/Vol] 122 mg/dL Critically high 74-106 T [facility] Comment on above: Performed By: #### C VDAGS #### [facility] [address] [address] [address] Leni Hamlin Potassium [Moles/Vol] 4.1 mmol/L Normal 3.5-5.1 [facility] Comment on above: Performed By: #### C VDAGS #### [facility] [address] [address] [address] Leni Hamlin Protein [Mass/Vol] 5.8 g/dL Critically low 6.4-8.2 Th [facility] Comment on above: Performed By: #### C VDAGS #### [facility] [address] [address] [address] Leni Hamlin Sodium [Moles/Vol] 138 mmol/L Normal 136-145 [facility] Comment on above: Performed By: #### C VDAGS #### [facility] [address] [place] [address] Dr. Leni Hamlin Urea nitrogen [Mass/Vol] 20.0 mg/dL Critically high 7.0-18.0 [facility] Comment on above: Performed By: #### C VDAGS #### [facility] [address] [place] [address] Dr. Leni Hamlin Urea nitrogen/Creatinine [Mass ratio] 15.9 mg/mg Normal [facility] Comment on above: Performed By: #### C VDAGS #### [facility] [address] [place] [address] Dr. Leni Hamlin CBC AUTO DIFFon 10-01-2022 BASO # 0.1 103/ul Normal 0.0-0.1 [facility] Comment on above: Performed By: #### C MP, CRP #### [facility] [address] [place] [address] Dr. Leni Hamlin Basophils/100 WBC (Bld) 0.3 % Normal 0.2-2.0 [facility] Comment on above: Performed By: #### C MP, CRP #### [facility] [address] [place] [address] Dr. Leni Hamlin EO # 0.2 103/ul Normal 0.0-0.7 [facility] Comment on above: Performed By: #### C MP, CRP #### [facility] [address] [place] [address] Dr. Leni Hamlin Eosinophils/100 WBC (Bld) 0.8 % Critically low 0.9-7.0 [facility] Comment on above: Performed By: #### C MP, CRP #### [facility] [address] [place] [address] Dr. Leni Hamlin Erythrocyte distribution width (RBC) [Ratio] 13.6 % Normal 11.0-15.0 [facility] Comment on above: Performed By: #### C MP, CRP #### [facility] [address] [place] [address] Dr. Leni Hamlin Hematocrit (Bld) [Volume fraction] 49.0 % Normal 42.0-54.0 [facility] Comment on above: Performed By: #### C MP, CRP #### [facility] [address] [place] [address] Dr. Leni Hamlin Hemoglobin (Bld) [Mass/Vol] 16.0 g/dL Normal 14.0-18.0 [facility] Comment on above: Performed By: #### C MP, CRP #### [facility] [address] [place] [address] Dr. Leni Hamlin IG # 0.24 10e3/ul Critically high 0.00-0.03 [facility] Comment on above: Performed By: #### C MP, CRP #### [facility] [address] [place] [address] Dr. Leni Hamlin IG % 1.2 % Critically high 0.0-0.5 [facility] Comment on above: Performed By: #### C MP, CRP #### [facility] [address] [place] [address] Dr. Leni Hamlin LYMPH # 1.6 103/ul Normal 1.2-3.8 [facility] Comment on above: Performed By: #### C MP, CRP #### [facility] [address] [place] [address] Dr. Leni Hamlin Lymphocytes/100 WBC (Bld) 8.0 % Critically low 20.5-60.0 [facility] Comment on above: Performed By: #### C MP, CRP #### [facility] [address] [place] [address] Dr. Leni Hamlin MANUAL DIFF REQ NO Normal [facility] Comment on above: Performed By: #### C MP, CRP #### [facility] [address] [place] [address] Dr. Leni Hamlin MCH (RBC) [Entitic mass] 29.4 pg Normal 25.9-34.0 [facility] Comment on above: Performed By: #### C MP, CRP #### [facility] [address] [place] [address] Dr. Leni Hamlin MCHC (RBC) [Mass/Vol] 32.7 g/dL Normal 29.9-35.2 [facility] Comment on above: Performed By: #### C MP, CRP #### [facility] [address] [address] [address] Leni Hamlin MCV (RBC) [Entitic vol] 90.1 fL Normal 80.0-94.0 [facility] Comment on above: Performed By: #### C MP, CRP #### [facility] [address] [address] [address] Leni Hamlin MONO # 1.0 103/ul Critically high 0.3-0.8 [facility] Comment on above: Performed By: #### C MP, CRP #### [facility] [address] [address] [address] Leni Hamlin Monocytes/100 WBC (Bld) 5.1 % Normal 1.7-12.0 [facility] Comment on above: Performed By: #### C MP, CRP #### [facility] [address] [address] [address] Lein Hamlin NEUT # 16.8 103/ul Critically high 1.4-6.5 [facility] Comment on above: Performed By: #### C MP, CRP #### [facility] [address] [address] [address] Leni Hamlin Neutrophils/100 WBC (Bld) 84.6 % Critically high 43.0-75.0 [facility] Comment on above: Performed By: #### C MP, CRP #### [facility] [address] [address] [address] Leni Hmalin Platelet mean volume (Bld) [Entitic vol] 9.7 fL Normal 9.5-13.5 [facility] Comment on above: Performed By: #### C MP, CRP #### [facility] [address] [address] [address] Leni Hamlin PLT 138 103/ul Critically low 150-450 [facility] Comment on above: Performed By: #### C MP, CRP #### [facility] [address] [address] [address] Leni Hamlin RBC 5.44 106/ul Normal 4.70-6.10 [facility] Comment on above: Performed By: #### C MP, CRP #### [facility] [address] [address] [address] Leni Hamlin WBC 19.8 103/ul Critically high 4.0-11.0 [facility] Comment on above: Performed By: #### C MP, CRP #### [facility] [address] [address] [address] Leni Hamlin BASO # 0.1 103/ul Normal 0.0-0.1 [facility] Comment on above: Performed By: #### B MP, BNP #### [facility] [address] [address] [address] Leni Hamlin Basophils/100 WBC (Bld) 0.3 % Normal 0.2-2.0 [facility] Comment on above: Performed By: #### B MP, BNP #### [facility] [address] [address] [address] Leni Hamlin EO # 0.1 103/ul Normal 0.0-0.7 [facility] Comment on above: Performed By: #### B MP, BNP #### [facility] [address] [place] [address] Dr. Leni Hamlin Eosinophils/100 WBC (Bld) 0.7 % Critically low 0.9-7.0 [facility] Comment on above: Performed By: #### B MP, BNP #### [facility] [address] [address] [address] Leni Hamlin Erythrocyte distribution width (RBC) [Ratio] 13.6 % Normal 11.0-15.0 [facility] Comment on above: Performed By: #### B MP, BNP #### [facility] [address] [place] [address] Dr. Leni Hamlin Hematocrit (Bld) [Volume fraction] 46.9 % Normal 42.0-54.0 [facility] Comment on above: Performed By: #### B MP, BNP #### [facility] [address] [address] [address] Leni Hamlin Hemoglobin (Bld) [Mass/Vol] 15.5 g/dL Normal 14.0-18.0 [facility] Comment on above: Performed By: #### B MP, BNP #### [facility] [address] [address] [address] Leni Hamlin IG # 0.16 10e3/ul Critically high 0.00-0.03 [facility] Comment on above: Performed By: #### B MP, BNP #### [facility] [address] [place] [address] Dr. Leni Hamlin IG % 0.9 % Critically high 0.0-0.5 [facility] Comment on above: Performed By: #### B MP, BNP #### [facility] [address] [place] [address] Dr. Leni Hamlin LYMPH # 1.8 103/ul Normal 1.2-3.8 [facility] Comment on above: Performed By: #### B MP, BNP #### [facility] [address] [place] [address] Dr. Leni Hamlin Lymphocytes/100 WBC (Bld) 9.7 % Critically low 20.5-60.0 [facility] Comment on above: Performed By: #### B MP, BNP #### [facility] [address] [place] [address] Dr. Leni Hamlin MANUAL DIFF REQ NO Normal [facility] Comment on above: Performed By: #### B MP, BNP #### [facility] [address] [place] [address] Dr. Leni Hamlin MCH (RBC) [Entitic mass] 29.2 pg Normal 25.9-34.0 [facility] Comment on above: Performed By: #### B MP, BNP #### [facility] [address] [place] [address] Dr. Leni Hamlin MCHC (RBC) [Mass/Vol] 33.0 g/dL Normal 29.9-35.2 [facility] Comment on above: Performed By: #### B MP, BNP #### [facility] [address] [address] [address] Leni Hamlin MCV (RBC) [Entitic vol] 88.3 fL Normal 80.0-94.0 [facility] Comment on above: Performed By: #### B MP, BNP #### [facility] [address] [address] [address] Leni Hamlin MONO # 1.4 103/ul Critically high 0.3-0.8 [facility] Comment on above: Performed By: #### B MP, BNP #### [facility] [address] [address] [address] Leni Hamlin Monocytes/100 WBC (Bld) 7.3 % Normal 1.7-12.0 [facility] Comment on above: Performed By: #### B MP, BNP #### [facility] [address] [place] [address] Dr. Leni Hamlin NEUT # 15.1 103/ul Critically high 1.4-6.5 [facility] Comment on above: Performed By: #### B MP, BNP #### [facility] [address] [place] [address] Dr. Leni Hamlin Neutrophils/100 WBC (Bld) 81.1 % Critically high 43.0-75.0 [facility] Comment on above: Performed By: #### B MP, BNP #### [facility] [address] [place] [address] Dr. Leni Hamlin Platelet mean volume (Bld) [Entitic vol] 10.0 fL Normal 9.5-13.5 [facility] Comment on above: Performed By: #### B MP, BNP #### [facility] [address] [place] [address] Dr. Leni Hamlin PLT 141 103/ul Critically low 150-450 [facility] Comment on above: Performed By: #### B MP, BNP #### [facility] [address] [place] [address] Dr. Leni Hamlin RBC 5.31 106/ul Normal 4.70-6.10 [facility] Comment on above: Performed By: #### B MP, BNP #### [facility] [address] [place] [address] Dr. Leni Hamlin WBC 18.7 103/ul Critically high 4.0-11.0 [facility] Comment on above: Performed By: #### B MP, BNP #### [facility] [address] [place] [address] Dr. Leni Hamlin CRPon 10-01-2022 CRP 16.0 mg/dL Critically high <=1.0 [facility] Comment on above: Performed By: #### C VDAGS #### [facility] [address] [place] [address] Dr. Leni Hamlin PROF 14(COMP METB)on 022 Albumin [Mass/Vol] 2.6 g/dL Critically low 3.4-5.0 [facility] Comment on above: Performed By: #### C MP, CRP #### [facility] [address] [place] [address] Dr. Leni Hamlin Albumin/Globulin [Mass ratio] 0.8 {ratio} Normal [facility] Comment on above: Performed By: #### C MP, CRP #### [facility] [address] [place] [address] Dr. Leni Hamlin ALP [Catalytic activity/Vol] 44 U/L Critically low 46-116 [facility] Comment on above: Performed By: #### C MP, CRP #### [facility] [address] [place] [address] Dr. Leni Hamlin ALT [Catalytic activity/Vol] 12 U/L Critically low 16-63 [facility] Comment on above: Performed By: #### C MP, CRP #### [facility] [address] [place] [address] Dr. Leni Hamlin Anion gap [Moles/Vol] 8.7 mmol/L Normal [facility] Comment on above: Performed By: #### C MP, CRP #### [facility] [address] [place] [address] Dr. Leni Hamlin AST [Catalytic activity/Vol] 10 U/L Critically low 15-37 [facility] Comment on above: Performed By: #### C MP, CRP #### [facility] [address] [place] [address] Dr. Leni Hamlin Bilirubin [Mass/Vol] 0.8 mg/dL Normal 0.2-1.0 [facility] Comment on above: Performed By: #### C MP, CRP #### [facility] [address] [place] [address] Dr. Leni Hamlin Calcium [Mass/Vol] 8.3 mg/dL Critically low 8.5-10.1 [facility] Comment on above: Performed By: #### C MP, CRP #### [facility] [address] [place] [address] Dr. Leni Hamlin Chloride [Moles/Vol] 103 mmol/L Normal 98-107 [facility] Comment on above: Performed By: #### C MP, CRP #### [facility] [address] [place] [address] Dr. Leni Hamlin CO2 [Moles/Vol] 28.2 mmol/L Normal 21.0-32.0 [facility] Comment on above: Performed By: #### C MP, CRP #### [facility] [address] [place] [address] Dr. Leni Hamlin Creatinine [Mass/Vol] 1.24 mg/dL Normal 0.70-1.30 [facility] Comment on above: Performed By: #### C MP, CRP #### [facility] [address] [place] [address] Dr. Leni Hamlin EGFR-AF [place] >60 Normal >=60 [facility] Comment on above: Performed By: #### C MP, CRP #### [facility] [address] [place] [address] Dr. Leni Hamlin EGFR-NON AF [place] 57 mL/min/1.73m2 Critically low >=60 [facility] Comment on above: Performed By: #### C MP, CRP #### [facility] [address] [place] [address] Dr. Leni Hamlin Globulin (S) [Mass/Vol] 3.2 g/dL Normal [facility] Comment on above: Performed By: #### C MP, CRP #### [facility] [address] [place] [address] Dr. Leni Hamlin Glucose [Mass/Vol] 111 mg/dL Critically high 74-106 T [facility] Comment on above: Performed By: #### C MP, CRP #### [facility] [address] [place] [address] Dr. Leni Hamlin Potassium [Moles/Vol] 3.9 mmol/L Normal 3.5-5.1 [facility] Comment on above: Performed By: #### C MP, CRP #### [facility] [address] [place] [address] Dr. Leni Hamlin Protein [Mass/Vol] 5.8 g/dL Critically low 6.4-8.2 Th [facility] Comment on above: Performed By: #### C MP, CRP #### [facility] [address] [place] [address] Dr. Leni Hamlin Sodium [Moles/Vol] 136 mmol/L Normal 136-145 [facility] Comment on above: Performed By: #### C MP, CRP #### [facility] [address] [place] [address] Dr. Leni Hamlin Urea nitrogen [Mass/Vol] 17.0 mg/dL Normal 7.0-18.0 [facility] Comment on above: Performed By: #### C MP, CRP #### [facility] [address] [place] [address] Dr. Leni Hamlin Urea nitrogen/Creatinine [Mass ratio] 13.7 mg/mg Normal [facility] Comment on above: Performed By: #### C MP, CRP #### [facility] [address] [place] [address] Dr. Leni Hamlin C. DIFF PCRon 09-30-2022 C. DIFFICILE PCR Positive Critically abnormal NEGATIVE [facility] Comment on above: Performed By: #### C VDAGS #### [facility] [address] [place] [address] Dr. Leni Hamlin CBC AUTO DIFFon 09-30-2022 BASO # 0.0 103/ul Normal 0.0-0.1 [facility] Comment on above: Performed By: #### C BC #### [facility] [address] [place] [address] Dr. Leni Hamlin Basophils/100 WBC (Bld) 0.3 % Normal 0.2-2.0 [facility] Comment on above: Performed By: #### C BC #### [facility] [address] [place] [address] Dr. Leni Hamlin EO # 0.1 103/ul Normal 0.0-0.7 [facility] Comment on above: Performed By: #### C BC #### [facility] [address] [place] [address] Dr. Leni Hamlin Eosinophils/100 WBC (Bld) 0.8 % Critically low 0.9-7.0 [facility] Comment on above: Performed By: #### C BC #### [facility] [address] [place] [address] Dr. Leni Hamlin Erythrocyte distribution width (RBC) [Ratio] 13.4 % Normal 11.0-15.0 [facility] Comment on above: Performed By: #### C BC #### [facility] [address] [place] [address] Dr. Leni Hamlin Hematocrit (Bld) [Volume fraction] 50.4 % Normal 42.0-54.0 [facility] Comment on above: Performed By: #### C BC #### [facility] [address] [place] [address] Dr. Leni Hamlin Hemoglobin (Bld) [Mass/Vol] 16.2 g/dL Normal 14.0-18.0 [facility] Comment on above: Performed By: #### C BC #### [facility] [address] [place] [address] Dr. Leni Hamlin IG # 0.13 10e3/ul Critically high 0.00-0.03 [facility] Comment on above: Performed By: #### C BC #### [facility] [address] [place] [address] Dr. Leni Hamlin IG % 0.9 % Critically high 0.0-0.5 [facility] Comment on above: Performed By: #### C BC #### [facility] [address] [place] [address] Dr. Leni Hamlin LYMPH # 1.7 103/ul Normal 1.2-3.8 [facility] Comment on above: Performed By: #### C BC #### [facility] [address] [place] [address] Dr. Leni Hamlin Lymphocytes/100 WBC (Bld) 11.1 % Critically low 20.5-60.0 [facility] Comment on above: Performed By: #### C BC #### [facility] [address] [place] [address] Dr. Leni Hamlin MANUAL DIFF REQ NO Normal [facility] Comment on above: Performed By: #### C BC #### [facility] [address] [place] [address] Dr. Leni Hamlin MCH (RBC) [Entitic mass] 28.8 pg Normal 25.9-34.0 [facility] Comment on above: Performed By: #### C BC #### [facility] [address] [place] [address] Dr. Leni Hamlin MCHC (RBC) [Mass/Vol] 32.1 g/dL Normal 29.9-35.2 [facility] Comment on above: Performed By: #### C BC #### [facility] [address] [place] [address] Dr. Leni Hamlin MCV (RBC) [Entitic vol] 89.7 fL Normal 80.0-94.0 [facility] Comment on above: Performed By: #### C BC #### [facility] [address] [place] [address] Dr. Leni Hamlin MONO # 1.5 103/ul Critically high 0.3-0.8 [facility] Comment on above: Performed By: #### C BC #### [facility] [address] [place] [address] Dr. Leni Hamlin Monocytes/100 WBC (Bld) 9.8 % Normal 1.7-12.0 [facility] Comment on above: Performed By: #### C BC #### [facility] [address] [address] [address] Leni Hamlin NEUT # 11.7 103/ul Critically high 1.4-6.5 [facility] Comment on above: Performed By: #### C BC #### [facility] [address] [address] [address] Leni Hamlin Neutrophils/100 WBC (Bld) 77.1 % Critically high 43.0-75.0 [facility] Comment on above: Performed By: #### C BC #### [facility] [address] [place] [address] Dr. Leni Hamlin Platelet mean volume (Bld) [Entitic vol] 9.9 fL Normal 9.5-13.5 [facility] Comment on above: Performed By: #### C BC #### [facility] [address] [place] [address] Dr. Leni Hamlin PLT 156 103/ul Normal 150-450 [facility] Comment on above: Performed By: #### C BC #### [facility] [address] [place] [address] Dr. Leni Hamlin RBC 5.62 106/ul Normal 4.70-6.10 [facility] Comment on above: Performed By: #### C BC #### [facility] [address] [place] [address] Dr. Leni Hamlin WBC 15.2 103/ul Critically high 4.0-11.0 [facility] Comment on above: Performed By: #### C BC #### [facility] [address] [place] [address] Dr. Leni Hamlin CRPon 09-30-2022 CRP 7.6 mg/dL Critically high <=1.0 [facility] Comment on above: Performed By: #### C RP #### [facility] [address] [place] [address] Dr. Lein Hamlin PROF 14(COMP METB)on 09-30- 022 Albumin [Mass/Vol] 2.8 g/dL Critically low 3.4-5.0 Th e [facility] Comment on above: Performed By: #### C RP #### [facility] [address] [place] [address] Dr. Leni Hamlin Albumin/Globulin [Mass ratio] 0.9 {ratio} Normal [facility] Comment on above: Performed By: #### C RP #### [facility] [address] [place] [address] Dr. Leni Hamlin ALP [Catalytic activity/Vol] 45 U/L Critically low 46-116 [facility] [facility] Comment on above: Performed By: #### C RP #### [facility] [address] [place] [address] Dr. Leni Hamlin ALT [Catalytic activity/Vol] 17 U/L Normal 16-63 [facility] Comment on above: Performed By: #### C RP #### [facility] [address] [place] [address] Dr. Leni Hamlin Anion gap [Moles/Vol] 8.4 mmol/L Normal [facility] Comment on above: Performed By: #### C RP #### [facility] [address] [place] [address] Dr. Leni Hamlni AST [Catalytic activity/Vol] 9 U/L Critically low 15-37 [facility] Comment on above: Performed By: #### C RP #### [facility] [address] [place] [address] Dr. Leni Hamlin Bilirubin [Mass/Vol] 0.6 mg/dL Normal 0.2-1.0 [facility] Comment on above: Performed By: #### C RP #### [facility] [address] [place] [address] Dr. Leni Hamlin Calcium [Mass/Vol] 8.6 mg/dL Normal 8.5-10.1 [facility] Comment on above: Performed By: #### C RP #### [facility] [address] [place] [address] Dr. Leni Hamlin Chloride [Moles/Vol] 104 mmol/L Normal 98-107 [facility] Comment on above: Performed By: #### C RP #### [facility] [address] [address] [address] Leni Hamlin CO2 [Moles/Vol] 29.6 mmol/L Normal 21.0-32.0 [facility] Comment on above: Performed By: #### C RP #### [facility] [address] [address] [address] Leni Hamlin Creatinine [Mass/Vol] 1.23 mg/dL Normal 0.70-1.30 [facility] Comment on above: Performed By: #### C RP #### [facility] [address] [place] [address] Dr. Leni Hamlin EGFR-AF [place] ISLANDER >60 Normal >=60 [facility] Comment on above: Performed By: #### C RP #### [facility] [address] [place] [address] Dr. Leni Hamlin EGFR-NON AF [place] 58 mL/min/1.73m2 Critically low >=60 [facility] Comment on above: Performed By: #### C RP #### [facility] [address] [place] [address] Dr. Leni Hamlin Globulin (S) [Mass/Vol] 3.0 g/dL Normal [facility] Comment on above: Performed By: #### C RP #### [facility] [address] [place] [address] Dr. Leni Hamlin Glucose [Mass/Vol] 113 mg/dL Critically high 74-106 [facility] Comment on above: Performed By: #### C RP #### [facility] [address] [place] [address] Dr. Leni Hamlin Potassium [Moles/Vol] 4.0 mmol/L Normal 3.5-5.1 [facility] Comment on above: Performed By: #### C RP #### [facility] [address] [place] [address] Dr. Leni Hamlin Protein [Mass/Vol] 5.8 g/dL Critically low 6.4-8.2 [facility] Comment on above: Performed By: #### C RP #### [facility] [address] [address] [address] Leni Hamlin Sodium [Moles/Vol] 138 mmol/L Normal 136-145 [facility] Comment on above: Performed By: #### C RP #### [facility] [address] [place] [address] Dr. Leni Hamlin Urea nitrogen [Mass/Vol] 17.0 mg/dL Normal 7.0-18.0 [facility] Comment on above: Performed By: #### C RP #### [facility] [address] [place] [address] Dr. Leni Hamlin Urea nitrogen/Creatinine [Mass ratio] 13.8 mg/mg Normal [facility] Comment on above: Performed By: #### C RP #### [facility] [address] [place] [address] Dr. Leni Hamlin CBC AUTO DIFFon 09-29-2022 BASO # 0.1 103/ul Normal 0.0-0.1 [facility] Comment on above: Performed By: #### C VDAGS #### [facility] [address] [place] [address] Dr. Leni Hamlin Basophils/100 WBC (Bld) 0.4 % Normal 0.2-2.0 [facility] Comment on above: Performed By: #### C VDAGS #### [facility] [address] [place] [address] Dr. Leni Hamlin EO # 0.1 103/ul Normal 0.0-0.7 [facility] Comment on above: Performed By: #### C VDAGS #### [facility] [address] [place] [address] Dr. Leni Hamlin Eosinophils/100 WBC (Bld) 0.9 % Normal 0.9-7.0 [facility] Comment on above: Performed By: #### C VDAGS #### [facility] [address] [place] [address] Dr. Leni Hamlin Erythrocyte distribution width (RBC) [Ratio] 13.2 % Normal 11.0-15.0 [facility] Comment on above: Performed By: #### C VDAGS #### [facility] [address] [place] [address] Dr. Leni Hamlin Hematocrit (Bld) [Volume fraction] 53.1 % Normal 42.0-54.0 [facility] Comment on above: Performed By: #### C VDAGS #### [facility] [address] [place] [address] Dr. Leni Hamlin Hemoglobin (Bld) [Mass/Vol] 17.3 g/dL Normal 14.0-18.0 [facility] Comment on above: Performed By: #### C VDAGS #### [facility] [address] [place] [address] Dr. Leni Hamlin IG # 0.30 10e3/ul Critically high 0.00-0.03 [facility] Comment on above: Performed By: #### C VDAGS #### [facility] [address] [place] [address] Dr. Leni Hamlin IG % 2.2 % Critically high 0.0-0.5 [facility] Comment on above: Performed By: #### C VDAGS #### [facility] [address] [place] [address] Dr. Leni Hamlin LYMPH # 1.5 103/ul Normal 1.2-3.8 [facility] Comment on above: Performed By: #### C VDAGS #### [facility] [address] [place] [address] Dr. Lein Hamlin Lymphocytes/100 WBC (Bld) 10.5 % Critically low 20.5-60.0 [facility] Comment on above: Performed By: #### C VDAGS #### [facility] [address] [place] [address] Dr. Leni Hamlin MANUAL DIFF REQ NO Normal [facility] Comment on above: Performed By: #### C VDAGS #### [facility] [address] [place] [address] Dr. Leni Hamlin MCH (RBC) [Entitic mass] 29.0 pg Normal 25.9-34.0 [facility] Comment on above: Performed By: #### C VDAGS #### [facility] [address] [place] [address] Dr. Leni Hamlin MCHC (RBC) [Mass/Vol] 32.6 g/dL Normal 29.9-35.2 [facility] Comment on above: Performed By: #### C VDAGS #### [facility] [address] [place] [address] Dr. Leni Hamlin MCV (RBC) [Entitic vol] 88.9 fL Normal 80.0-94.0 [facility] Comment on above: Performed By: #### C VDAGS #### [facility] [address] [place] [address] Dr. Leni Hamlin MONO # 0.8 103/ul Normal 0.3-0.8 [facility] Comment on above: Performed By: #### C VDAGS #### [facility] [address] [place] [address] Dr. Leni Hamlin Monocytes/100 WBC (Bld) 6.0 % Normal 1.7-12.0 [facility] Comment on above: Performed By: #### C VDAGS #### [facility] [address] [place] [address] Dr. Leni Hamlin NEUT # 11.2 103/ul Critically high 1.4-6.5 [facility] Comment on above: Performed By: #### C VDAGS #### [facility] [address] [place] [address] Dr. Leni Hamlin Neutrophils/100 WBC (Bld) 80.0 % Critically high 43.0-75.0 [facility] Comment on above: Performed By: #### C VDAGS #### [facility] [address] [place] [address] Dr. Leni Hamlin Platelet mean volume (Bld) [Entitic vol] 9.6 fL Normal 9.5-13.5 [facility] Comment on above: Performed By: #### C VDAGS #### [facility] [address] [address] [address] Leni Hamlin PLT 186 103/ul Normal 150-450 [facility] Comment on above: Performed By: #### C VDAGS #### [facility] [address] [address] [address] Leni Hamlin RBC 5.97 106/ul Normal 4.70-6.10 [facility] Comment on above: Performed By: #### C VDAGS #### [facility] [address] [id number] Leni Hamlin WBC 13.9 103/ul Critically high 4.0-11.0 [facility] Comment on above: Performed By: #### C VDAGS #### [facility] [address] ABD/PELV W CONon [...] RAJESH CHACON Date: 2022-09-29 12:51 Normal [facility] Covid-19 PCR (CVDTB)on 09-11 SARS-CoV-2 (COVID-19) RNA VENESSA+probe Ql (Unsp spec) Not detected Normal NOT DETECTED [facility] Comment on above: Result Comment: When [...] for this test is supported by the [place] of Health and Human Service's declaration that [...] Performed By: #### B MP, BNP #### [facility] [address] [place] [address] Dr. Leni Hamlin GI PANEL (PCR)on 09-29-2022 Adenovirus F 40/41 Not detected Normal NOT DETECTED [facility] Comment on above: Performed By: #### C RP #### [facility] [address] [place] [address] Dr. Leni Hamlin Astrovirus Not detected Normal NOT DETECTED [facility] Comment on above: Performed By: #### C RP #### [facility] [address] [place] [address] Dr. Leni Duvall. Diff toxin A/B Not detected Normal NOT DETECTED [facility] Comment on above: Performed By: #### C RP #### [facility] [address] [place] [address] Dr. Leni Hamlin Campylobacter Not detected Normal NOT DETECTED [facility] Comment on above: Performed By: #### C RP #### [facility] [address] [place] [address] Dr. Leni Hamlin Cryptosporidium Not detected Normal NOT DETECTED [facility] Comment on above: Performed By: #### C RP #### [facility] [address] [place] [address] Dr. Leni Hamlin Cyclos. Cayetanensis Not detected Normal NOT DETECTED [facility] Comment on above: Performed By: #### C RP #### [facility] [address] [place] [address] Dr. Leni Hamlin E. Coli O157 Not Applicable Normal Not Applicable [facility] Comment on above: Performed By: #### C RP #### [facility] [address] [place] [address] Dr. Leni Hamlin E. histolytica Not detected Normal NOT DETECTED [facility] Comment on above: Performed By: #### C RP #### [facility] [address] [place] [address] Dr. Leni Hamlin EAEC Not detected Normal NOT DETECTED [facility] Comment on above: Performed By: #### C RP #### [facility] [address] [place] [address] Dr. Leni Hamlin EIEC Not detected Normal NOT DETECTED [facility] Comment on above: Performed By: #### C RP #### [facility] [address] [place] [address] Dr. Leni Hamlin EPEC Not detected Normal NOT DETECTED [facility] Comment on above: Performed By: #### C RP #### [facility] [address] [place] [address] Dr. Leni Hamlin ETEC Not detected Normal NOT DETECTED [facility] Comment on above: Performed By: #### C RP #### [facility] [address] [place] [address] Dr. Leni Hamlin G. Lamblia Not detected Normal NOT DETECTED [facility] Comment on above: Performed By: #### C RP #### [facility] [address] [place] [address] Dr. Leni ESQUIVELL CONTROLS PASSED Normal [facility] Comment on above: Performed By: #### C RP #### [facility] [address] [place] [address] Dr. Leni FRIEND RAGHU HEADER GI PANEL BACTERIA Normal [facility] Comment on above: Performed By: #### C RP #### [facility] [address] [place] [address] Dr. Leni KAMARA ECOLI GI PANEL DIARRHEAGENIC E.COLI / SHIGELLA Normal [facility] Comment on above: Performed By: #### C RP #### [facility] [address] [place] [address] Dr. Leni KAMARA INFO SEE BELOW Normal [facility] Comment on above: Result Comment: EAEC - Enteroaggregative E. Coli EPEC- Enteropathogenic E. Coli ETEC- Enterotoxigenic E. Coli lt/st STEC- Shigella-like toxin-producing E. Coli stx1/stx2 EIEC- Shigella/Enteroinvasive E. Coli Performed By: #### C RP #### [facility] [address] [place] [address] Dr. Leni KAMARA PARASITES GI PANEL PARASITES Normal [facility] Comment on above: Performed By: #### C RP #### [facility] [address] [place] [address] Dr. Leni KAMARA VIRUS GI PANEL VIRUSES Normal [facility] Comment on above: Performed By: #### C RP #### [facility] [address] [place] [address] Dr. Leni Hamlin Norovirus GI/GII Not detected Normal NOT DETECTED [facility] Comment on above: Performed By: #### C RP #### [facility] [address] [place] [address] Dr. Leni Hamlin P. Shigelloides Not detected Normal NOT DETECTED [facility] Comment on above: Performed By: #### C RP #### [facility] [address] [place] [address] Dr. Leni Hamlin Rotavirus A Not detected Normal NOT DETECTED [facility] Comment on above: Performed By: #### C RP #### [facility] [address] [place] [address] Dr. Leni Hamlin Salmonella Not detected Normal NOT DETECTED [facility] Comment on above: Performed By: #### C RP #### [facility] [address] [place] [address] Dr. Leni Hamlin Sapovirus Not detected Normal NOT DETECTED [facility] Comment on above: Performed By: #### C RP #### [facility] [address] [place] [address] Dr. Leni Hamlin STEC Not detected Normal NOT DETECTED [facility] Comment on above: Performed By: #### C RP #### [facility] [address] [place] [address] Dr. Leni Hamlin Vibrio Not detected Normal NOT DETECTED [facility] Comment on above: Performed By: #### C RP #### [facility] [address] [place] [address] Dr. Leni Hamlin Vibrio Cholera Not detected Normal NOT DETECTED [facility] Comment on above: Performed By: #### C RP #### [facility] [address] [place] [address] Dr. Leni Hamlin Y. Enterocolitica Not detected Normal NOT DETECTED [facility] Comment on above: Performed By: #### C RP #### [facility] [address] [place] [address] Dr. Leni Hamlin PROF CHEM 8 (BAS METB)on Anion gap [Moles/Vol] 5.8 mmol/L Normal [facility] Comment on above: Performed By: #### C VDAGS #### [facility] [address] [place] [address] Dr. Leni Hamlin Calcium [Mass/Vol] 9.0 mg/dL Normal 8.5-10.[address] [facility] Comment on above: Performed By: #### C VDAGS #### [facility] [address] [place] [address] Dr. Leni Hamlin Chloride [Moles/Vol] 103 mmol/L Normal 98-107 [facility] Comment on above: Performed By: #### C VDAGS #### [facility] [address] [place] [address] Dr. Leni Hamlin CO2 [Moles/Vol] 31.7 mmol/L Normal 21.0-32.0 [facility] Comment on above: Performed By: #### C VDAGS #### [facility] [address] [place] [address] Dr. Leni Hamlin Creatinine [Mass/Vol] 1.28 mg/dL Normal 0.70-1.30 [facility] Comment on above: Performed By: #### C VDAGS #### [facility] [address] [address] [address] Leni Hamlin EGFR-AF [place]ER >60 Normal >=60 [facility] Comment on above: Performed By: #### C VDAGS #### [facility] [address] [address] [address] Leni Hamlin EGFR-NON AF [place] 55 mL/min/1.73m2 Critically low >=60 [facility] Comment on above: Performed By: #### C VDAGS #### [facility] [address] [address] [address] Leni Hamlin Glucose [Mass/Vol] 130 mg/dL Critically high 74-106 [facility] Comment on above: Performed By: #### C VDAGS #### [facility] [address] [address] [address] Leni Hamlin Potassium [Moles/Vol] 4.5 mmol/L Normal 3.5-5.1 [facility] Comment on above: Performed By: #### C VDAGS #### [facility] [address] [place] [address] Dr. Leni Hamlin Sodium [Moles/Vol] 136 mmol/L Normal 136-145 [facility] Comment on above: Performed By: #### C VDAGS #### [facility] [address] [place] [address] Dr. Leni Hamlin Urea nitrogen [Mass/Vol] 23.0 mg/dL Critically high 7.0-18.0 [facility] Comment on above: Performed By: #### C VDAGS #### [facility] [address] [address] [address] Leni Hamlin Urea nitrogen/Creatinine [Mass ratio] 18.0 mg/mg Normal [facility] Comment on above: Performed By: #### C VDAGS #### [facility] [address] [place] [address] Dr. Leni Hamlin Covid-19 PCR (CVDTBH)on 08-13 SARS-CoV-2 (COVID-19) RNA VENESSA+probe Ql (Unsp spec) Not detected Normal NOT DETECTED [facility] Comment on above: Result Comment: When [...] for this test is supported by the [place] of Health and Human Service's declaration that [...] Performed By: #### C MP, CRP #### [facility] [address] [address] [address] Leni Hamlin Covid-19 PCR (CVDTBH)on 05-11 SARS-CoV-2 (COVID-19) RNA VENESSA+probe Ql (Unsp spec) Detected Critically abnormal NOT DETECTED [facility] Comment on above: Result Comment: This test is not yet approved or cleared by the [place] FDA. When there are no FDA-approved or cleared tests available, and other criteria are met, FDA can make tests available under an emergency access mechanism called an Emergency Use Authorization (EUA). The EUA for this test is supported by the [place] of Health and Human Service's (HHS's) declaration [...] used). Performed By: #### C RP #### [facility] [address] [place], [place] [address] Dr. Leni Hamlin Covid-19 PCR ([facility])on 04-11 SARS-CoV-2 (COVID-19) RNA VENESSA+probe Ql (Unsp spec) Not detected Normal NOT DETECTED [facility] Comment on above: Result Comment: This test is not yet approved or cleared by the [place] FDA. When there are no FDA-approved or cleared tests available, and other criteria are met, FDA can make tests available under an emergency access mechanism called an Emergency Use Authorization (EUA). The EUA for this test is supported by the [place] of Health and Human Service's (HHS's) declaration [...] SARS-CoV-2. Performed By: #### C VDTB #### [facility] [address] [place], [place] [address] Dr. Leni Hamlin SYMPTOMATIC COVID-19 ANTIGEN on 04-23-2022 EUA Statement SEE BELOW Normal [facility] Comment on above: Result Comment: This [...] sooner. Performed By: #### C VDAGS #### [facility] [address] [place], [place] [address] Dr. Leni Hamlin SARS-CoV-2 (COVID-19) RNA VENESSA+probe Ql (Unsp spec) Negative Normal NEGATIVE [facility] Comment on above: Performed By: #### C VDAGS #### [facility] [address] [place], [place] [address] Dr. Leni Hamlin Cardiovascular Lab Reporton 03-22-[address] [facility] Patient Name: Jm [facility] A MR #: [id number] Department of Physician: Modesto Becerra MD Medicine Service Date: 03/22/2022 Division of Birthdate: 1950 Cardiology Room #: Adult Cardiovascular Services [place] [id number] Cardiovascular Laboratory Report PACEMAKER IMPLANT PROCEDURE NOTE [...] using modified seldinger technique using a 5 Danish micro-puncture needle on two occasions and 0.35 [...] pocket was created for the device. 6 Danish Safesheaths were placed over the wire. An active fixation Biotronik pacing lead was then delivered through the 6Fsheath to the right ventricle. After confirmation of lead position on orthogonal views (RUBALCAVA and ENGLISH) to confirm septal position, the screw was [...] lead position on orthogonal views (RUBALCAVA and ENGLISH), the screw was activated. After confirmation of [...] Device info: Biotronik Edora Model# 8DR-T Serial# [id number] RA lead: Model# Biotronik Solia S45 Serial# [id number] Sensin.5mV Threshold: 0.6V@0.5ms Impedance: 507 Ohms RV lead: Model# Biotronik Solia S53 Serial# [id number] Sensin.5mV Threshold: 0.6V@0.4ms Impedance: 663 Ohms POST [...] El (more content not included)... Normal [facility] SPUTUM CULTUREon 03-17-2022 Epithelial cells LM Ql (Urine sed) Few Normal [facility] Comment on above: Performed By: #### B MP, BNP #### [facility] [address] [place] [address] Dr. Lein Hamlin Gram Stain Evaluation Comment Normal [facility] Comment on above: Result Comment: This specimen is of good quality and is acceptable for routine bacterial culture. Performed By: #### B MP, BNP #### [facility] [address] [place] [address] Dr. Leni Hamlin Lower Respiratory Culture Final report Normal [facility] Comment on above: Performed By: #### B MP, BNP #### [facility] [address] [address] [address] Leni Hamlin Result 1 Comment Normal [facility] Comment on above: Result Comment: Few gram negative rods. Performed By: #### B MP, BNP #### [facility] [address] [address] [address] Leni Hamlin Result Comment: Rout ine respiratory bola Result 2 Comment Normal [facility] Comment on above: Result Comment: Few gram positive cocci Performed By: #### B MP, BNP #### [facility] [address] [address] [address] Leni Hamlin Result 3 Comment Normal [facility] Comment on above: Result Comment: Rare gram positive rods Performed By: #### B MP, BNP #### [facility] [address] [place] [address] Dr. Leni Hamlin Result 4 Normal [facility] [facility] Comment on above: Performed By: #### B MP, BNP #### [facility] [address] [place] [address] Dr. Leni Hamlin White Blood Cells Few Normal [facility] Comment on above: Performed By: #### B MP, BNP #### [facility] [address] [place] [address] Dr. Leni Hamlin BNPon 03-15-2022 Natriuretic peptide B (Bld) [Mass/Vol] 429.0 pg/mL Normal <=900.0 [facility] Comment on above: Performed By: #### C MP, CRP #### [facility] [address] [place] [address] Dr. Leni Hamlin CBC AUTO DIFFon 03-15-2022 BASO # 0.0 103/ul Normal 0.0-0.1 [facility] Comment on above: Performed By: #### C VDAGS #### [facility] [address] [place] [address] Dr. Leni Hamlin Basophils/100 WBC (Bld) 0.2 % Normal 0.2-2.0 [facility] Comment on above: Performed By: #### C VDAGS #### [facility] [address] [place] [address] Dr. Leni Hamlin EO # 0.0 103/ul Normal 0.0-0.7 [facility] Comment on above: Performed By: #### C VDAGS #### [facility] [address] [place] [address] Dr. Leni Hamlin Eosinophils/100 WBC (Bld) 0.0 % Critically low 0.9-7.0 [facility] Comment on above: Performed By: #### C VDAGS #### [facility] [address] [place] [address] Dr. Leni Hamlin Erythrocyte distribution width (RBC) [Ratio] 13.6 % Normal 11.0-15.0 [facility] Comment on above: Performed By: #### C VDAGS #### [facility] [address] [place] [address] Dr. Leni Hamlin Hematocrit (Bld) [Volume fraction] 44.5 % Normal 42.0-54.0 [facility] Comment on above: Performed By: #### C VDAGS #### [facility] [address] [place] [address] Dr. Leni Hamlin Hemoglobin (Bld) [Mass/Vol] 13.8 g/dL Critically low 14.0-18.0 [facility] Comment on above: Performed By: #### C VDAGS #### [facility] [address] [place] [address] Dr. Leni Hamlin IG # 0.35 10e3/ul Critically high 0.00-0.03 [facility] Comment on above: Performed By: #### C VDAGS #### [facility] [address] [place] [address] Dr. Leni Hamlin IG % 2.4 % Critically high 0.0-0.5 [facility] Comment on above: Performed By: #### C VDAGS #### [facility] [address] [place] [address] Dr. Leni Hamlin LYMPH # 0.6 103/ul Critically low 1.2-3.8 [facility] Comment on above: Performed By: #### C VDAGS #### [facility] [address] [place] [address] Dr. Leni Hamlin Lymphocytes/100 WBC (Bld) 4.1 % Critically low 20.5-60.0 [facility] Comment on above: Performed By: #### C VDAGS #### [facility] [address] [place] [address] Dr. Leni Hamlin MANUAL DIFF REQ NO Normal [facility] Comment on above: Performed By: #### C VDAGS #### [facility] [address] [place] [address] Dr. Leni Hamlin MCH (RBC) [Entitic mass] 29.4 pg Normal 25.9-34.0 [facility] Comment on above: Performed By: #### C VDAGS #### [facility] [address] [place] [address] Dr. Leni Hamlin MCHC (RBC) [Mass/Vol] 31.0 g/dL Normal 29.9-35.2 [facility] Comment on above: Performed By: #### C VDAGS #### [facility] [address] [place] [address] Dr. Leni Hamlin MCV (RBC) [Entitic vol] 94.7 fL Critically high 80.0-94.0 [facility] Comment on above: Performed By: #### C VDAGS #### [facility] [address] [place] [address] Dr. Leni Hamlin MONO # 0.7 103/ul Normal 0.3-0.8 [facility] Comment on above: Performed By: #### C VDAGS #### [facility] [address] [place] [address] Dr. Leni Hamlin Monocytes/100 WBC (Bld) 4.7 % Normal 1.7-12.0 [facility] Comment on above: Performed By: #### C VDAGS #### [facility] [address] [place] [address] Dr. Leni Hamlin NEUT # 12.9 103/ul Critically high 1.4-6.5 [facility] Comment on above: Performed By: #### C VDAGS #### [facility] [address] [place] [address] Dr. Leni Hamlin Neutrophils/100 WBC (Bld) 88.6 % Critically high 43.0-75.0 [facility] Comment on above: Performed By: #### C VDAGS #### [facility] [address] [place] [address] Dr. Leni Hamlin Platelet mean volume (Bld) [Entitic vol] 10.2 fL Normal 9.5-13.5 [facility] Comment on above: Performed By: #### C VDAGS #### [facility] [address] [address] [address] Leni Hamlin PLT 176 103/ul Normal 150-450 [facility] Comment on above: Performed By: #### C VDAGS #### [facility] [address] [place] [address] Dr. Leni Hamlin RBC 4.70 106/ul Normal 4.70-6.10 [facility] Comment on above: Performed By: #### C VDAGS #### [facility] [address] [place] [address] Dr. Leni Hamlin WBC 14.6 103/ul Critically high 4.0-11.0 [facility] Comment on above: Performed By: #### C VDAGS #### [facility] [address] [place] [address] Dr. Leni Hamlin PROF CHEM 8 (BAS METB)on Anion gap [Moles/Vol] 10.2 mmol/L Normal [facility] Comment on above: Performed By: #### C MP, CRP #### [facility] [address] [place] [address] Dr. Leni Hamlin Calcium [Mass/Vol] 8.0 mg/dL Critically low 8.5-10.1 [facility] Comment on above: Performed By: #### C MP, CRP #### [facility] [address] [place] [address] Dr. Leni Hamlin Chloride [Moles/Vol] 104 mmol/L Normal 98-107 [facility] Comment on above: Performed By: #### C MP, CRP #### [facility] [address] [place] [address] Dr. Leni Hamlin CO2 [Moles/Vol] 28.2 mmol/L Normal 21.0-32.0 [facility] Comment on above: Performed By: #### C MP, CRP #### [facility] [address] [place] [address] Dr. Leni Hamlin Creatinine [Mass/Vol] 1.36 mg/dL Critically high 0.70-1.30 [facility] Comment on above: Performed By: #### C MP, CRP #### [facility] [address] [address] [address] Leni Hamlin EGFR-AF [place] >60 Normal >=60 [facility] Comment on above: Performed By: #### C MP, CRP #### [facility] [address] [address] [address] Leni Hamlin EGFR-NON AF [place] 51 mL/min/1.73m2 Critically low >=60 [facility] Comment on above: Performed By: #### C MP, CRP #### [facility] [address] [address] [address] Leni Hamlin Glucose [Mass/Vol] 205 mg/dL Critically high 74-106 [facility] Comment on above: Performed By: #### C MP, CRP #### [facility] [address] [address] [address] Leni Hamlin Potassium [Moles/Vol] 4.4 mmol/L Normal 3.5-5.1 [facility] Comment on above: Performed By: #### C MP, CRP #### [facility] [address] [address] [address] Leni Hamlin Sodium [Moles/Vol] 138 mmol/L Normal 136-145 [facility] Comment on above: Performed By: #### C MP, CRP #### [facility] [address] [address] [address] Leni Hamlin Urea nitrogen [Mass/Vol] 29.0 mg/dL Critically high 7.0-18.0 [facility] Comment on above: Performed By: #### C MP, CRP #### [facility] [address] [address] [address] Leni Hamlin Urea nitrogen/Creatinine [Mass ratio] 21.3 mg/mg Normal [facility] Comment on above: Performed By: #### C MP, CRP #### [facility] [address] [address] [address] Leni Hamlin BNPon 03-14-2022 Natriuretic peptide B (Bld) [Mass/Vol] 337.0 pg/mL Normal <=900.0 [facility] Comment on above: Performed By: #### C RP #### [facility] [address] [place] [address] Dr. Leni Hamlin CBC AUTO DIFFon 03-14-2022 BASO # 0.0 103/ul Normal 0.0-0.1 [facility] Comment on above: Performed By: #### C MP, CRP #### [facility] [address] [place] [address] Dr. Leni Hamlin Basophils/100 WBC (Bld) 0.2 % Normal 0.2-2.0 [facility] Comment on above: Performed By: #### C MP, CRP #### [facility] [address] [place] [address] Dr. Leni Hamlin EO # 0.0 103/ul Normal 0.0-0.7 [facility] Comment on above: Performed By: #### C MP, CRP #### [facility] [address] [place] [address] Dr. Leni Hamlin Eosinophils/100 WBC (Bld) 0.0 % Critically low 0.9-7.0 [facility] Comment on above: Performed By: #### C MP, CRP #### [facility] [address] [place] [address] Dr. Leni Hamlin Erythrocyte distribution width (RBC) [Ratio] 13.6 % Normal 11.0-15.0 [facility] Comment on above: Performed By: #### C MP, CRP #### [facility] [address] [place] [address] Dr. Leni Hamlin Hematocrit (Bld) [Volume fraction] 47.8 % Normal 42.0-54.0 [facility] Comment on above: Performed By: #### C MP, CRP #### [facility] [address] [place] [address] Dr. Leni Hamlin Hemoglobin (Bld) [Mass/Vol] 14.6 g/dL Normal 14.0-18.0 [facility] Comment on above: Performed By: #### C MP, CRP #### [facility] [address] [address] [address] Leni Hamlin IG # 0.22 10e3/ul Critically high 0.00-0.03 [facility] Comment on above: Performed By: #### C MP, CRP #### [facility] [address] [address] [address] Leni Hamlin IG % 1.3 % Critically high 0.0-0.5 [facility] Comment on above: Performed By: #### C MP, CRP #### [facility] [address] [address] [address] Leni Hamlin LYMPH # 0.5 103/ul Critically low 1.2-3.8 [facility] Comment on above: Performed By: #### C MP, CRP #### [facility] [address] [place] [address] Dr. Leni Hamlin Lymphocytes/100 WBC (Bld) 2.9 % Critically low 20.5-60.0 [facility] Comment on above: Performed By: #### C MP, CRP #### [facility] [address] [address] [address] Leni Hamlin MANUAL DIFF REQ NO Normal [facility] Comment on above: Performed By: #### C MP, CRP #### [facility] [address] [place] [address] Dr. Leni Hamlin MCH (RBC) [Entitic mass] 29.4 pg Normal 25.9-34.0 [facility] Comment on above: Performed By: #### C MP, CRP #### [facility] [address] [address] [address] Leni Hamlin MCHC (RBC) [Mass/Vol] 30.5 g/dL Normal 29.9-35.2 [facility] Comment on above: Performed By: #### C MP, CRP #### [facility] [address] [place] [address] Dr. Leni Hamlin MCV (RBC) [Entitic vol] 96.4 fL Critically high 80.0-94.0 [facility] Comment on above: Performed By: #### C MP, CRP #### [facility] [address] [address] [address] Leni Hamlin MONO # 1.1 103/ul Critically high 0.3-0.8 [facility] Comment on above: Performed By: #### C MP, CRP #### [facility] [address] [address] [address] Leni Hamlin Monocytes/100 WBC (Bld) 6.4 % Normal 1.7-12.0 [facility] Comment on above: Performed By: #### C MP, CRP #### [facility] [address] [address] [address] Leni Hamlin NEUT # 15.2 103/ul Critically high 1.4-6.5 [facility] Comment on above: Performed By: #### C MP, CRP #### [facility] [address] [place] [address] Dr. Leni Hamlin Neutrophils/100 WBC (Bld) 89.2 % Critically high 43.0-75.0 [facility] Comment on above: Performed By: #### C MP, CRP #### [facility] [address] [address] [address] Leni Hamlin Platelet mean volume (Bld) [Entitic vol] 10.4 fL Normal 9.5-13.5 [facility] Comment on above: Performed By: #### C MP, CRP #### [facility] [address] [place] [address] Dr. Leni Hamlin PLT 167 103/ul Normal 150-450 [facility] Comment on above: Performed By: #### C MP, CRP #### [facility] [address] [place] [address] Dr. Leni Hamlin RBC 4.96 106/ul Normal 4.70-6.10 [facility] Comment on above: Performed By: #### C MP, CRP #### [facility] [address] [place] [address] Dr. Leni Hamlin WBC 17.0 103/ul Critically high 4.0-11.0 [facility] Comment on above: Performed By: #### C MP, CRP #### [facility] [address] [address] [address] Leni Hamlin PROF CHEM 8 (BAS METB)on Anion gap [Moles/Vol] 7.0 mmol/L Normal [facility] Comment on above: Performed By: #### C VDAGS #### [facility] [address] [address] [address] Leni Hamlin Calcium [Mass/Vol] 8.3 mg/dL Critically low 8.5-10.1 [facility] Comment on above: Performed By: #### C VDAGS #### [facility] [address] [address] [address] Leni Hamlin Chloride [Moles/Vol] 102 mmol/L Normal 98-107 [facility] Comment on above: Performed By: #### C VDAGS #### [facility] [address] [place] [address] Dr. Leni Hamlin CO2 [Moles/Vol] 29.6 mmol/L Normal 21.0-32.0 [facility] Comment on above: Performed By: #### C VDAGS #### [facility] [address] [address] [address] Leni Hamlin Creatinine [Mass/Vol] 1.48 mg/dL Critically high 0.70-1.30 [facility] Comment on above: Performed By: #### C VDAGS #### [facility] [address] [place] [address] Dr. Leni Hamlin EGFR-AF [place] 56 mL/min/1.73m2 Critically low >=60 [facility] Comment on above: Performed By: #### C VDAGS #### [facility] [address] [address] [address] Leni Hamlin EGFR-NON AF [place] 47 mL/min/1.73m2 Critically low >=60 [facility] Comment on above: Performed By: #### C VDAGS #### [facility] [address] [address] [address] Leni Hamlin Glucose [Mass/Vol] 168 mg/dL Critically high 74-106 [facility] Comment on above: Performed By: #### C VDAGS #### [facility] [address] [place] [address] Dr. Leni Hamlin Potassium [Moles/Vol] 4.6 mmol/L Normal 3.5-5.1 [facility] Comment on above: Performed By: #### C VDAGS #### [facility] [address] [place] [address] Dr. Leni Hamlin Sodium [Moles/Vol] 134 mmol/L Critically low 136-145 [facility] Comment on above: Performed By: #### C VDAGS #### [facility] [address] [place] [address] Dr. Leni Hamlin Urea nitrogen [Mass/Vol] 29.0 mg/dL Critically high 7.0-18.0 [facility] Comment on above: Performed By: #### C VDAGS #### [facility] [address] [place] [address] Dr. Leni Hamlin Urea nitrogen/Creatinine [Mass ratio] 19.6 mg/mg Normal [facility] Comment on above: Performed By: #### C VDAGS #### [facility] [address] [place] [address] Dr. Leni Hamlin BNPon 03-13-2022 Natriuretic peptide B (Bld) [Mass/Vol] 501.0 pg/mL Normal <=900.0 [facility] Comment on above: Performed By: #### B MP, BNP #### [facility] [address] [place] [address] Dr. Leni Hamlin CBC W MANUAL DIFFon 03-13-20 ATYPICAL LYMPH # Normal [facility] Comment on above: Performed By: #### C VDAGS #### [facility] [address] [place] [address] Dr. Leni Hamlin ATYPICAL LYMPH % Normal [facility] Comment on above: Performed By: #### C VDAGS #### [facility] [address] [place] [address] Dr. Leni Hamlin BAND # 2.1 103/ul Critically high 0.0-0.3 [facility] Comment on above: Performed By: #### C VDAGS #### [facility] [address] [address] [address] Leni Hamlin BAND % 12 % Critically high 0-5 [facility] Comment on above: Performed By: #### C VDAGS #### [facility] [address] [place] [address] Dr. Leni Hamlin BASOM # 0.00 103/ul Normal 0.00-0.10 [facility] Comment on above: Performed By: #### C VDAGS #### [facility] [address] [place] [address] Dr. Leni Hamlin BASOM % 0.0 % Critically low 0.2-2.0 [facility] Comment on above: Performed By: #### C VDAGS #### [facility] [address] [place] [address] Dr. Leni Hamlin BLAST # Normal [facility] Comment on above: Performed By: #### C VDAGS #### [facility] [address] [place] [address] Dr. Leni Hamlin BLAST % Normal [facility] Comment on above: Performed By: #### C VDAGS #### [facility] [address] [place] [address] Dr. Leni Hamlin CORRECTED WBC Normal 4.0-11.[address] [facility] Comment on above: Performed By: #### C VDAGS #### [facility] [address] [place] [address] Dr. Leni Hamlin EOS # 0.00 103/ul Normal 0.00-0.70 [facility] Comment on above: Performed By: #### C VDAGS #### [facility] [address] [place] [address] Dr. Leni Hamlin EOS% 0.0 % Critically low 0.9-7.0 [facility] Comment on above: Performed By: #### C VDAGS #### [facility] [address] [place] [address] Dr. Leni Hamlin HCT 51.2 % Normal 42.0-54.0 [facility] Comment on above: Performed By: #### C VDAGS #### [facility] [address] [place] [address] Dr. Leni Hamlin HGB 15.4 g/dl Normal 14.0-18.0 [facility] Comment on above: Performed By: #### C VDAGS #### [facility] [address] [place] [address] Dr. Leni Hamlin LYMPHM # 0.52 103/ul Critically low 1.20-3.80 [facility] Comment on above: Performed By: #### C VDAGS #### [facility] [address] [place] [address] Dr. Leni Hamlin LYMPHM% 3.0 % Critically low 20.5-60.0 [facility] Comment on above: Performed By: #### C VDAGS #### [facility] [address] [place] [address] Dr. Leni Hamlin MCH 29.6 pg Normal 25.9-34.0 [facility] Comment on above: Performed By: #### C VDAGS #### [facility] [address] [place] [address] Dr. Lein Hamlin MCHC 30.1 g/dl Normal 29.9-35.2 [facility] Comment on above: Performed By: #### C VDAGS #### [facility] [address] [place] [address] Dr. Leni Hamlin MCV 98.5 fL Critically high 80.0-94.0 [facility] Comment on above: Performed By: #### C VDAGS #### [facility] [address] [place] [address] Dr. Leni Hamlin METAMYELOCYTE # Normal [facility] Comment on above: Performed By: #### C VDAGS #### [facility] [address] [place] [address] Dr. Leni Hamlin METAMYELOCYTE % Normal [facility] Comment on above: Performed By: #### C VDAGS #### [facility] [address] [place] [address] Dr. Leni Hamlin MONOM# 0.86 103/ul Critically high 0.30-0.80 [facility] Comment on above: Performed By: #### C VDAGS #### [facility] [address] [place] [address] Dr. Leni Hamlin MONOM% 5.0 % Normal 1.7-12.0 [facility] Comment on above: Performed By: #### C VDAGS #### [facility] [address] [place] [address] Dr. Leni Hamlin MPV 10.0 fL Normal 9.5-13.5 [facility] Comment on above: Performed By: #### C VDAGS #### [facility] [address] [place] [address] Dr. Leni Hamlin MYELOCYTE # Normal [facility] Comment on above: Performed By: #### C VDAGS #### [facility] [address] [place] [address] Dr. Leni Hamlin MYELOCYTE % Normal [facility] Comment on above: Performed By: #### C VDAGS #### [facility] [address] [place] [address] Dr. Leni Hamlin NRBC Normal [facility] Comment on above: Performed By: #### C VDAGS #### [facility] [address] [place] [address] Dr. Leni Hamlin PLT 161 103/ul Normal 150-450 [facility] Comment on above: Performed By: #### C VDAGS #### [facility] [address] [place] [address] Dr. Leni Hamlin RBC 5.20 106/ul Normal 4.70-6.10 [facility] Comment on above: Performed By: #### C VDAGS #### [facility] [address] [place] [address] Dr. Leni Hamlin RDW 13.5 % Normal 11.0-15.0 [facility] Comment on above: Performed By: #### C VDAGS #### [facility] [address] [address] [address] Leni Hamlin SEG # 13.76 103/ul Critically high 1.40-6.50 [facility] Comment on above: Performed By: #### C VDAGS #### [facility] [address] [address] [address] Leni Hamiln SEG % 80.0 % Critically high 43.0-75.0 [facility] Comment on above: Performed By: #### C VDAGS #### [facility] [address] [address] [address] Leni Hamlin WBC 17.2 103/ul Critically high 4.0-11.0 [facility] Comment on above: Performed By: #### C VDAGS #### [facility] [address] [place] [address] Dr. Leni Hamlin PROF CHEM 8 (BAS METB)on Anion gap [Moles/Vol] 12.5 mmol/L Normal [facility] Comment on above: Performed By: #### C VDAGS #### [facility] [address] [address] [address] Leni Hamlin Calcium [Mass/Vol] 8.4 mg/dL Critically low 8.5-10.1 Th [facility] Comment on above: Performed By: #### C VDAGS #### [facility] [address] [place] [address] Dr. Leni Hamlin Chloride [Moles/Vol] 100 mmol/L Normal 98-107 [facility] Comment on above: Performed By: #### C VDAGS #### [facility] [address] [place] [address] [address] Leni Hamlin CO2 [Moles/Vol] 26.7 mmol/L Normal 21.0-32.0 [facility] Comment on above: Performed By: #### C VDAGS #### [facility] [address] [place] [address] [address] Leni Hamlin Creatinine [Mass/Vol] 1.87 mg/dL Critically high 0.70-1.30 [facility] Comment on above: Performed By: #### C VDAGS #### [facility] [address] [address] [address] Leni Hamlin EGFR-AF [place] 43 mL/min/1.73m2 Critically low >=60 [facility] Comment on above: Performed By: #### C VDAGS #### [facility] [address] [place] [address] Dr. Leni Hamlin EGFR-NON AF [place] 36 mL/min/1.73m2 Critically low >=60 [facility] Comment on above: Performed By: #### C VDAGS #### [facility] [address] [place] [address] Dr. Leni Hamlin Glucose [Mass/Vol] 222 mg/dL Critically high 74-106 T [facility] Comment on above: Performed By: #### C VDAGS #### [facility] [address] [place] [address] Dr. Leni Hamlin Potassium [Moles/Vol] 4.2 mmol/L Normal 3.5-5.1 [facility] Comment on above: Performed By: #### C VDAGS #### [facility] [address] [place] [address] Dr. Leni Hamlin Sodium [Moles/Vol] 135 mmol/L Critically low 136-145 Th [facility] Comment on above: Performed By: #### C VDAGS #### [facility] [address] [place] [address] Dr. Leni Hamlin Urea nitrogen [Mass/Vol] 25.0 mg/dL Critically high 7.0-18.0 [facility] Comment on above: Performed By: #### C VDAGS #### [facility] [address] [place] [address] Dr. Leni Hamlin Urea nitrogen/Creatinine [Mass ratio] 13.4 mg/mg Normal [facility] Comment on above: Performed By: #### C VDAGS #### [facility] [address] [place] [address] Dr. Leni Hamlin Anion gap [Moles/Vol] 10.7 mmol/L Normal [facility] Comment on above: Performed By: #### B MP, BNP #### [facility] [address] [place] [address] Dr. Leni Hamlin Calcium [Mass/Vol] 8.2 mg/dL Critically low 8.5-10.1 Th e [facility] Comment on above: Performed By: #### B MP, BNP #### [facility] [address] [place] [address] Dr. Leni Hamlin Chloride [Moles/Vol] 101 mmol/L Normal 98-107 [facility] Comment on above: Performed By: #### B MP, BNP #### [facility] [address] [place] [address] Dr. Leni Hamlin CO2 [Moles/Vol] 30.0 mmol/L Normal 21.0-32.0 [facility] Comment on above: Performed By: #### B MP, BNP #### [facility] [address] [place] [address] Dr. Leni Hamlin Creatinine [Mass/Vol] 1.49 mg/dL Critically high 0.70-1.30 [facility] Comment on above: Performed By: #### B MP, BNP #### [facility] [address] [place] [address] Dr. Leni Hamlin EGFR-AF [place] 56 mL/min/1.73m2 Critically low >=60 [facility] Comment on above: Performed By: #### B MP, BNP #### [facility] [address] [place] [address] Dr. Leni Hamlin EGFR-NON AF [place] 46 mL/min/1.73m2 Critically low >=60 [facility] Comment on above: Performed By: #### B MP, BNP #### [facility] [address] [place] [address] Dr. Leni Hamlin Glucose [Mass/Vol] 158 mg/dL Critically high 74-106 T [facility] Comment on above: Performed By: #### B MP, BNP #### [facility] [address] [place] [address] Dr. Leni Hamlin Potassium [Moles/Vol] 5.7 mmol/L Critically high 3.5-5.1 [facility] Comment on above: Performed By: #### B MP, BNP #### [facility] [address] [place] [address] Dr. Leni Hamlin Sodium [Moles/Vol] 136 mmol/L Normal 136-145 [facility] Comment on above: Performed By: #### B MP, BNP #### [facility] [address] [place] [address] Dr. Leni Hamlin Urea nitrogen [Mass/Vol] 19.0 mg/dL Critically high 7.0-18.0 [facility] Comment on above: Performed By: #### B MP, BNP #### [facility] [address] [place] [address] Dr. Leni Hamlin Urea nitrogen/Creatinine [Mass ratio] 12.8 mg/mg Normal [facility] Comment on above: Performed By: #### B MP, BNP #### [facility] [address] [place] [address] Dr. Leni Hamlin BNPon 03-12-2022 Natriuretic peptide B (Bld) [Mass/Vol] 405.0 pg/mL Normal <=900.0 [facility] Comment on above: Performed By: #### B MP, BNP #### [facility] [address] [place] [address] Dr. Leni Hamlin CBC AUTO DIFFon 03-12-2022 BASO # 0.1 103/ul Normal 0.0-0.1 [facility] Comment on above: Performed By: #### C BC #### [facility] [address] [place] [address] Dr. Leni Hamlin Basophils/100 WBC (Bld) 0.3 % Normal 0.2-2.0 [facility] Comment on above: Performed By: #### C BC #### [facility] [address] [place] [address] Dr. Leni Hamlin EO # 0.0 103/ul Normal 0.0-0.7 [facility] Comment on above: Performed By: #### C BC #### [facility] [address] [address] [address] Leni Hamlin Eosinophils/100 WBC (Bld) 0.1 % Critically low 0.9-7.0 [facility] Comment on above: Performed By: #### C BC #### [facility] [address] [place] [address] Dr. Leni Hamlin Erythrocyte distribution width (RBC) [Ratio] 13.3 % Normal 11.0-15.0 [facility] Comment on above: Performed By: #### C BC #### [facility] [address] [place] [address] Dr. Leni Hamlin Hematocrit (Bld) [Volume fraction] 52.2 % Normal 42.0-54.0 [facility] Comment on above: Performed By: #### C BC #### [facility] [address] [place] [address] Dr. Leni Hamlin Hemoglobin (Bld) [Mass/Vol] 16.5 g/dL Normal 14.0-18.0 [facility] Comment on above: Performed By: #### C BC #### [facility] [address] [place] [address] Dr. Leni Hamlin IG # 0.19 10e3/ul Critically high 0.00-0.03 [facility] Comment on above: Performed By: #### C BC #### [facility] [address] [place] [address] Dr. Leni Hamlin IG % 1.0 % Critically high 0.0-0.5 [facility] Comment on above: Performed By: #### C BC #### [facility] [address] [place] [address] Dr. Leni Hamlin LYMPH # 0.8 103/ul Critically low 1.2-3.8 [facility] Comment on above: Performed By: #### C BC #### [facility] [address] [place] [address] Dr. Leni Hamlin Lymphocytes/100 WBC (Bld) 3.8 % Critically low 20.5-60.0 [facility] Comment on above: Performed By: #### C BC #### [facility] [address] [address] [address] Leni Hamlin MANUAL DIFF REQ NO Normal [facility] Comment on above: Performed By: #### C BC #### [facility] [address] [place] [address] Dr. Leni Hamlin MCH (RBC) [Entitic mass] 29.6 pg Normal 25.9-34.0 [facility] Comment on above: Performed By: #### C BC #### [facility] [address] [place] [address] Dr. Leni Hamlin MCHC (RBC) [Mass/Vol] 31.6 g/dL Normal 29.9-35.2 [facility] Comment on above: Performed By: #### C BC #### [facility] [address] [place] [address] Dr. Leni Hamlin MCV (RBC) [Entitic vol] 93.7 fL Normal 80.0-94.0 [facility] Comment on above: Performed By: #### C BC #### [facility] [address] [place] [address] Dr. Leni Hamlin MONO # 1.6 103/ul Critically high 0.3-0.8 [facility] Comment on above: Performed By: #### C BC #### [facility] [address] [place] [address] Dr. Leni Hamlin Monocytes/100 WBC (Bld) 8.3 % Normal 1.7-12.0 [facility] Comment on above: Performed By: #### C BC #### [facility] [address] [place] [address] Dr. Leni Hamlin NEUT # 17.0 103/ul Critically high 1.4-6.5 [facility] Comment on above: Performed By: #### C BC #### [facility] [address] [place] [address] Dr. Leni Hamlin Neutrophils/100 WBC (Bld) 86.5 % Critically high 43.0-75.0 [facility] Comment on above: Performed By: #### C BC #### [facility] [address] [place] [address] [address] Leni Hamlin Platelet mean volume (Bld) [Entitic vol] 10.0 fL Normal 9.5-13.5 [facility] Comment on above: Performed By: #### C BC #### [facility] [address] [place] [address] [address] Leni Hamlin PLT 194 103/ul Normal 150-450 [facility] Comment on above: Performed By: #### C BC #### [facility] [address] [address] [address] Leni Hamlin RBC 5.57 106/ul Normal 4.70-6.10 [facility] Comment on above: Performed By: #### C BC #### [facility] [address] [address] [address] Leni Hamlin WBC 19.7 103/ul Critically high 4.0-11.0 [facility] Comment on above: Performed By: #### C BC #### [facility] [address] [address] [address] CSPINE WO CONon [...] CIERA HERNÁNDEZ Date: 2022-03-12 13:42 Normal [facility] CT HEAD WO CONon 03-12-2022 CT [...] SUSAN KC Date: 2022-03-12 13:20 Normal [facility] CTA CHEST WO W CONon 022 [...] CIERA EDGAR Date: 2022-03-12 14:46 Normal [facility] CULTURE BLOODon 03-12-2022 Microscopic examination of blood, culture Culture Observations: NO GROWTH AT 5 DAYS. Normal [facility] Comment on above: Performed By: #### C MP, CRP #### [facility] [address] [place], [place] [address] Dr. Leni Hamlin Microscopic examination of blood, culture Culture Observations: NO GROWTH AT 5 DAYS. Normal [facility] Comment on above: Performed By: #### C MP, CRP #### [facility] [address] [place], [place] [address] Dr. Leni Hamlin Covid-19 PCR ([facility])on SARS-CoV-2 (COVID-19) RNA VENESSA+probe Ql (Unsp spec) Not detected Normal NOT DETECTED [facility] Comment on above: Result Comment: When diagnostic testing is negative, the possibility of a false negative should be considered in the context of a patient's recent exposures and the presence of clinical signs and symptoms consistent with SARS-CoV-2. This test is not yet approved or cleared by the [place] Food and Drug Administration (FDA). This test was developed by [employer], [place], [place]. The performance characteristics of this test were validated by [facility]. The results are not intended to be used as the sole means for clinical diagnosis or patient management decisions. [facility] is authorized under Clinical Laboratory Improvement [...] for this test is supported by the [employer] of Health and Human Service's declaration that [...] used). Performed By: #### C RP #### [facility] [address] [place] [address] Dr. Leni Hamlin D-DIMERon 03-12-2022 D-DIMER 6.00 mg/L FEU Critically high 0.19-0.50 [facility] Comment on above: Performed By: #### B MP, BNP #### [facility] [address] [place] [address] Dr. Leni Hamlin D-DIMER COMMENTS SEE BELOW [facility] Comment on above: Result Comment: Incr [...] Performed By: #### B MP, BNP #### [facility] [address] [place] [address] Dr. Leni Hamlin ER URINE PROFILEon 2 Bilirubin Ql (U) Negative Normal NEGATIVE [facility] Comment on above: Performed By: #### C RP #### [facility] [address] [place] [address] Dr. Leni Hamlin Clarity (U) CLEAR Normal CLEAR [facility] Comment on above: Performed By: #### C RP #### [facility] [address] [place] [address] Dr. Leni Hamlin Color (U) YELLOW Normal YELLOW [facility] Comment on above: Performed By: #### C RP #### [facility] [address] [place] [address] Dr. Leni ELLIS A micrscopic examination will be performed if indicated. Normal [facility] Comment on above: Performed By: #### C RP #### [facility] [address] [place] [address] Dr. Leni Hamlin Glucose Ql (U) Negative Normal NEGATIVE [facility] Comment on above: Performed By: #### C RP #### [facility] [address] [place] [address] Dr. Leni Hamlin Hemoglobin Ql (U) SMALL Abnormal NEGATIVE [facility] Comment on above: Performed By: #### C RP #### [facility] [address] [place] [address] Dr. Leni Hamlin Ketones Ql (U) Negative Normal NEGATIVE [facility] Comment on above: Performed By: #### C RP #### [facility] [address] [place] [address] Dr. Leni Hamlin LEUKOCYTES Negative Normal NEGATIVE [facility] Comment on above: Performed By: #### C RP #### [facility] [address] [place] [address] Dr. Leni Hamlin Nitrite Ql (U) Negative Normal NEGATIVE [facility] Comment on above: Performed By: #### C RP #### [facility] [address] [place] [address] Dr. Leni Hamlin pH (U) 5.5 [pH] Normal 5-9 [facility] Comment on above: Performed By: #### C RP #### [facility] [address] [place] [address] Dr. Leni Hamlin SPEC GRAVITY <=1.005 Abnormal 1.005-<=1.025 [facility] Comment on above: Performed By: #### C RP #### [facility] [address] [place] [address] Dr. Leni Hamlin UA PROTEIN >300 Abnormal NEGATIVE/ TRACE [facility] Comment on above: Performed By: #### C RP #### [facility] [address] [place] [address] Dr. Leni Hamlin UR MICRO IND INDICATED Normal [facility] Comment on above: Performed By: #### C RP #### [facility] [address] [place] [address] Dr. Leni Hamlin Urobilinogen Qn (U) 0.2 {Stacy'U}/dL Normal 0.2 - 1. 0 [facility] Comment on above: Performed By: #### C RP #### [facility] [address] [place] [address] Dr. Leni Hamlin LACTATE/LACTIC ACIDon 2021 Lactate [Moles/Vol] 0.5 mmol/L Normal 0.4-2.0 [facility] Comment on above: Performed By: #### B MP, BNP #### [facility] [address] [place] [address] Dr. Leni Hamlin Lactate [Moles/Vol] 1.6 mmol/L Normal 0.4-2.0 [facility] Comment on above: Performed By: #### L ACT #### [facility] [address] [place] [address] Dr. Leni Hamlin PROF 14(COMP METB)on 022 Albumin [Mass/Vol] 3.1 g/dL Critically low 3.4-5.0 [facility] Comment on above: Performed By: #### B MP, BNP #### [facility] [address] [place] [address] Dr. Leni Hamlin Albumin/Globulin [Mass ratio] 0.8 {ratio} Normal [facility] Comment on above: Performed By: #### B MP, BNP #### [facility] [address] [place] [address] Dr. Leni Hamlin ALP [Catalytic activity/Vol] 52 U/L Normal 46-116 [facility] Comment on above: Performed By: #### B MP, BNP #### [facility] [address] [place] [address] Dr. Leni Hamlin ALT [Catalytic activity/Vol] 27 U/L Normal 16-63 [facility] Comment on above: Performed By: #### B MP, BNP #### [facility] [address] [place] [address] Dr. Leni Hamlin Anion gap [Moles/Vol] 12.9 mmol/L Normal [facility] Comment on above: Performed By: #### B MP, BNP #### [facility] [address] [place] [address] Dr. Leni Hamlin AST [Catalytic activity/Vol] 14 U/L Critically low 15-37 [facility] Comment on above: Performed By: #### B MP, BNP #### [facility] [address] [place] [address] Dr. Leni Hamlin Bilirubin [Mass/Vol] 1.2 mg/dL Critically high 0.2-1.0 [facility] Comment on above: Performed By: #### B MP, BNP #### [facility] [address] [place] [address] Dr. Leni Hamlin Calcium [Mass/Vol] 8.2 mg/dL Critically low 8.5-10.1 Th [facility] Comment on above: Performed By: #### B MP, BNP #### [facility] [address] [place] [address] Dr. Leni Hamlin Chloride [Moles/Vol] 99 mmol/L Normal 98-107 [facility] Comment on above: Performed By: #### B MP, BNP #### [facility] [address] [place] [address] Dr. Leni Hamlin CO2 [Moles/Vol] 28.4 mmol/L Normal 21.0-32.0 [facility] Comment on above: Performed By: #### B MP, BNP #### [facility] [address] [place] [address] Dr. Leni Hamlin Creatinine [Mass/Vol] 1.44 mg/dL Critically high 0.70-1.30 [facility] Comment on above: Performed By: #### B MP, BNP #### [facility] [address] [place] [address] Dr. Leni Hamlin EGFR-AF [place] 58 mL/min/1.73m2 Critically low >=60 [facility] Comment on above: Performed By: #### B MP, BNP #### [facility] [address] [place] [address] Dr. Leni Hamlin EGFR-NON AF [place] 48 mL/min/1.73m2 Critically low >=60 [facility] Comment on above: Performed By: #### B MP, BNP #### [facility] [address] [place] [address] Dr. Leni Hamlin Globulin (S) [Mass/Vol] 3.8 g/dL Normal [facility] Comment on above: Performed By: #### B MP, BNP #### [facility] [address] [place] [address] Dr. Leni Hamlin Glucose [Mass/Vol] 137 mg/dL Critically high 74-106 T [facility] Comment on above: Performed By: #### B MP, BNP #### [facility] [address] [place] [address] Dr. Leni Hamlin Potassium [Moles/Vol] 4.3 mmol/L Normal 3.5-5.1 [facility] Comment on above: Performed By: #### B MP, BNP #### [facility] [address] [place] [address] Dr. Leni Hamlin Protein [Mass/Vol] 6.9 g/dL Normal 6.1-8.2 [facility] Comment on above: Performed By: #### B MP, BNP #### [facility] [address] [place] [address] Dr. Leni Hamlin Sodium [Moles/Vol] 136 mmol/L Normal 136-145 [facility] Comment on above: Performed By: #### B MP, BNP #### [facility] [address] [place] [address] Dr. Leni Hamlin Urea nitrogen [Mass/Vol] 15.0 mg/dL Normal 7.0-18.0 [facility] Comment on above: Performed By: #### B MP, BNP #### [facility] [address] [place] [address] Dr. Leni Hamlin Urea nitrogen/Creatinine [Mass ratio] 10.4 mg/mg Normal [facility] Comment on above: Performed By: #### B MP, BNP #### [facility] [address] [place] [address] Dr. Leni Hamlin PROTIMEon 03-12-2022 INR Coag (PPP) [Relative time] 1.07 {INR} Normal [facility] Comment on above: Performed By: #### B MP, BNP #### [facility] [address] [place] [address] Dr. Leni Hamlin INR GUIDELINES SEE BELOW Normal [facility] Comment on above: Result Comment: WAQAS RED INR: 2.0 - 3.0 CONDITIONS NOT LISTED BELOW 2.5 - 3.5 FOR PROSTHETIC HEART VALVE REPLACEMENT 2.5 - 3.5 RECURRENT THROMBOSIS Performed By: #### B MP, BNP #### [facility] [address] [place] [address] Dr. Leni Hamlin PT Coag (PPP) [Time] 11.5 s Normal 9.0-11.6 [facility] Comment on above: Performed By: #### B MP, BNP #### [facility] [address] [place] [address] Dr. Leni Hamlin TROPONIN, HIGH SENSITIVITYon 03-12-2022 HSTROP 12.8 pg/mL Normal 4.0-76.1 [facility] Comment on above: Result Comment: CUT- OFF POINTS HAVE BEEN ESTABLISHED BASED ON THE FOURTH UNIVERSAL DEFINITIONS OF MYOCARDIAL INFARCTION. THE UPPER REFERENCE LIMIT (URL) OF TROPONIN, DEFINED THE 99TH PERCENTILE OF cTnI DISTRIBUTION IN A REFERENCE POPULATION, HAS BEEN CONFIRMED THE DECISION THRESHOLD FOR MS DIAGNOSIS. Performed By: #### B MP, BNP #### [facility] [address] [place] [address] Dr. Leni Hamlin URINE MICROSCOPIC ONLYon BACTERIA NONE SEEN Normal NONE SEEN [facility] Comment on above: Performed By: #### C RP #### [facility] [address] [place] [address] Dr. Leni Hamlin Bacteria identified Cx Nom (U) NOT INDICATED Normal [facility] Comment on above: Performed By: #### C RP #### [facility] [address] [place] [address] Dr. Leni Hamlin CAST NONE SEEN Normal NONE SEEN [facility] Comment on above: Performed By: #### C RP #### [facility] [address] [place] [address] Dr. Leni Hamlin Crystals LM Nom (Urine sed) NONE SEEN Normal NONE SEEN [facility] Comment on above: Performed By: #### C RP #### [facility] [address] [place] [address] Dr. Leni Hamlin Epithelial cells LM Ql (Urine sed) NONE SEEN Normal NONE SEEN /RARE [facility] Comment on above: Performed By: #### C RP #### [facility] [address] [place] [address] Dr. Leni Hamlin MUCOUS MODERATE Abnormal NONE SEEN [facility] Comment on above: Performed By: #### C RP #### [facility] [address] [place] [address] Dr. Leni Hamlin RBC 2-5 Abnormal 0-2 [facility] Comment on above: Performed By: #### C RP #### [facility] [address] [place] [address] Dr. Leni [place] WBC NONE SEEN Normal NONE SEEN [facility] Comment on above: Performed By: #### C RP #### [facility] [address] [place] [address] Dr. Leni Hamlin XR RIBS RT PA [...] CIERA HERNÁNDEZ Date: 2022-03-12 13:35 Normal [facility] Covid-19 PCR (CVDTBH)on 01-09 SARS-CoV-2 (COVID-19) RNA VENESSA+probe Ql (Unsp spec) Not detected Normal NOT DETECTED [facility] Comment on above: Result Comment: This test is not yet approved or cleared by the [place] FDA. When there are no FDA-approved or cleared tests available, and other criteria are met, FDA can make tests available under an emergency access mechanism called an Emergency Use Authorization (EUA). The EUA for this test is supported by the School Age Teacher of Health and Human Service's (HHS's) declaration [...] SARS-CoV-2. Performed By: #### C RP #### [facility] [address] [place] [address] Dr. Leni Hamlin INFLUENZA A AND B AGon 01-25 [facility] SEE BELOW Normal [facility] Comment on above: Result Comment: Nega tive for Flu A protein angiten. Infection due to Flu A cannot be ruled out. Flu A angiten in the sample may be below the detection limit of the test. Performed By: #### C RP #### [facility] [address] [place] [address] Dr. [facility] Normal [facility] Comment on above: Result Comment: Nega tive for Flu B protein antigen. Infection due to Flu B cannot be ruled out. Flu B antigen in the sample may be below the detection limit of the test. Performed By: #### C RP #### [facility] [address] [place] [address] Dr. Leni Hamlin INFLUENZA A AG Negative Normal NEGATIVE SEE COMMENT [facility] Comment on above: Performed By: #### C RP #### [facility] [address] [place] [address] Dr. Leni Hamlin INFLUENZA B AG Negative Normal NEGATIVE SEE COMMENT [facility] Comment on above: Performed By: #### C RP #### [facility] [address] [place] [address] Dr. Leni Hamlin INTERNAL CONTROLS Within Normal Limits Normal Wi thin Normal Limits [facility] Comment on above: Performed By: #### C RP #### [facility] [address] [place] [id number] [address] Leni Hamlin COVID-19 Antigenon 2 COVID-19 [...] its performance Cindy Disclaimer characteristic determined by [facility] and Cindy Disclaimer validated at [facility]. This Cindy Disclaimer test has not been [...] Disclaimer Act, 21 U.S.C. 360bbb-3(b)(1), unless the Cidny Disclaimer authorization is terminated or revoked sooner. PERFORMED BY: [place] [address] PATHOLOGIST NUCLEAR WASTE PROCESS OPERATOR ZOHAIB JEWELL M.D. [facility] Comment on above: Performed By: #### C OVID-19 CINDY, SOFIANEG #### [facility] [address] [place], [place] [id number] [facility] Cindy Ag Negativeon 12-01-19 Cindy Ag Negative Negative Normal Negative [facility] Comment on above: Result Comment: This is a duplicate Cindy SARS Antigen (JENNIFER) result to be used for statistical tracking purpose only. PERFORMED BY: [place] [address] PATHOLOGIST NUCLEAR WASTE PROCESS OPERATOR ZOHAIB JEWELL M.D. Performed By: #### C OVID-19 CINDY, SOFIANEG #### [facility] [address] [place], [place] [id number] [facility] Encounters Encounter Date Encounter Type Care Provider Facility Start: 09-16-2023 End: 09-17-2023 ambulatory Urvashi Rawls MD Facility:[facility] Start: 08-27-2023 End: 08-27-2023 ambulatory [facility] Start: 07-09-2023 End: 07-09-2023 [facility] Start: 06-24-2023 End: 06-25-2023 ambulatory Urvashi Rawls MD Facility:[facility] Start: 06-10-2023 End: 06-11-2023 ambulatory Urvashi Rawls MD Facility:[facility] Start: 05-27-2023 End: 05-28-2023 ambulatory Urvashi Rawls MD Facility:[facility] Start: 05-13-2023 End: 05-13-2023 ambulatory [facility] Start: 05-08-2023 ambulatory [facility] Start: 04-09-2023 End: 04-09-2023 ambulatory [facility] Start: 03-29-2023 End: 03-30-2023 ambulatory [facility] Start: 03-26-2023 End: 03-27-2023 ambulatory [facility] Start: 03-26-2023 End: 03-26-2023 ambulatory [facility] Start: 03-15-2023 End: 03-16-2023 ambulatory [facility] Start: 02-27-2023 End: 02-28-2023 ambulatory [facility] Start: 01-31-2023 End: 02-01-2023 ambulatory ELLIOT Maximino [facility] Start: 01-16-2023 End: 01-16-[address] ELLIOT CHESTER . Facility:[facility] Start: 12-27-[address] ELLIOT CHESTER . Facili ty:[facility] Start: 12-18-2022 End: 12-18-[address] CLIFTON JHAVERI Facility:[facility] Start: 11-07-2022 End: 11-07-2022 ambulatory HOLLY WILHELMSEJALYe [facility] Start: 10-22-2022 End: 10-22-2022 ambulatory MODESTO WAYNEO [facility] Start: 10-01-2022 End: 10-03-2022 Evaluation and management of inpatient DR ELLIOT CHESTER . Facility:[facility] Start: 09-10-2022 End: 09-10-[address] ELLIOT CHESTER . Facility:[facility] Start: 08-24-[address] [facility] CHESTER . [facility] Start: 05-22-2022 End: 05-22-2022 ambulatory GAGANDEEP PAREDES Facility:[facility] Start: 05-21-2022 End: 05-21-2022 ambulatory GAGANDEEP PAREDES Facility:[facility] Start: 04-23-2022 End: 04-23-[address] ELLIOT CHESTER . Facility:[facility] Start: 03-23-2022 End: 03-24-2022 ambulatory MODESTO BECERRA Facility:[facility] Start: 03-22-2022 End: 03-23-2022 ambulatory MODESTO BECERRA Facility:[facility] Start: 03-20-2022 End: 03-21-[address] ELLIOT CHESTER . Facility:[facility] Start: 03-13-2022 End: 03-15-2022 Evaluation and management of inpatient DR ELLIOT CHESTER . Facility:[facility] Start: 01-25-2022 End: 01-25-2022 ambulatory GAGANDEEP PAREDES Facility: Payers Date Payer Category Payer Medicare 2022 Unknown 1961 Medicare [id number] 1961 Self-pay 1959 Unknown [id number] 1948 Unknown [id number] 2.16.8 [id number] 1948 Unknown [id number] 2.16.84 0.1.319592.3.579.2.593 1948 Unknown [id number] 2.16.84 0.1.286474.3.579.2.593 1948 Unknown [id number] 2.16.84 0.1.618619.3.579.2.593 1948 Unknown [id number] 2.16.84 0.1.004123.3.579.2.593 1948 Unknown [id number] 2.16.84 0.1.586507.3.579.2.593 1948 Unknown [id number] 2.16.84 0.1.750802.3.579.2.593 1948 Unknown [id number] 2.16.84 0.1.234052.3.579.2.593 1948 Unknown [id number] 2.16.84 0.1.598401.3.579.2.593 1948 Unknown [id number] 2.16.84 0.1.301789.3.579.2.593 1948 Unknown [id number] 2.16.84 0.1.565704.3.579.2.593 1948 Unknown [id number] 2.16.84 0.1.528171.3.579.2.593 1948 Unknown [id number] 2.16.84 0.1.394875.3.579.2.593 1948 Unknown [id number] 2.16.84 0.1.147189.3.579.2.593 1948 Unknown [id number] 2.16. 840.1.430284.3.579.2.196 1948 Unknown [id number] 2.16. 840.1.337346.3.579.2.196 1948 Unknown [id number] 2.16. 840.1.611432.3.579.2.196 1948 Unknown [id number] 2.16. 840.1.545831.3.579.2.196 Clinical Notes 03-23-2022 to 08-27-2023 Note Date & Type Note Facility 08-27-2023 Note Patient here for 3 m o follow up SAAGR's. Seeing pain management for his legs he says. Denies chest pain, SOB, and lightheadedness. Not able to tolerate his cpap so it was returned. He is not taking atorvastatin (started by Dr. Quinonez in April) because he said it cost him over $70 for a 30 day supply at [facility]. Lipid profile was done in May 2023. Review of Systems Constitutional: Positive for malaise/fatigue. Musculoskeletal: Positive for arthritis, back pain, joint pain, muscle weakness and myalgias. Neurological: Positive for numbness. All other systems reviewed and are negative. [facility] 05-13-2023 Note Patient here c/o LE numbness and pain during ambulation and standing. He had EMG and SAGAR's in March 2023. He sees Dr. Chester this afternoon. Recently saw neurosurgery and vascular surgery at [facility]. Dr. Quinonez started him on low dose aspirin and atorvastatin last week, which he states he has not started yet. He denies chest pain, SOB, and syncope. Review of Systems Constitutional: Positive for malaise/fatigue. Cardiovascular: Positive for claudication and leg swelling. Musculoskeletal: Positive for arthritis, back pain, muscle weakness and myalgias. All other systems reviewed and are negative. [facility] 05-13-2023 Note [place] Cardiology Note [facility] Reason for visit: lower extremity claudication [...] was initiated by the patient and conducted cto-iibg-mu-face with use of audio-only real time telephone [...] night many times (more content not included)... [facility] 05-08-2023 Note This is a 73-year-ol d [...] will see him in about 3 months. [facility] 05-08-2023 Note HPI Brian Oneal is a [...] being on aspirin (more content not included)... 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 He undertook some type of decompressive surgery [...] Final Atrial Rate 03/22/2022 76 BPM Final IA Interval 03/22/2022 162 ms Final QRS DURATION 03/22/2022 144 ms Final QT Interval 03/22/2022 392 ms Final QTC CALCULATION(BAZETT) 03/22/2022 441 ms Final P Redway 03/22/2022 -14 degrees Final R-Redway 03/22/2022 -20 degrees Final T Wave Redway 03/22/2022 -6 degrees Final Diagnosis 03/22/2022 Final [...] No definite e (more content not included)... [facility] 03-26-2023 Note Neurosurgery Consult Chief Complaint: Back and leg pain. History of Present Illness: Brian Oneal is a 72 y.o. male who presents in kind referral from Dr. Chester for evaluation of lumbar degenerative disease with back and leg pain. 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 He undertook some type of decompressive surgery [...] Value Ref Range (more content not included)... [facility] 11-12-2022 Note -s/p PPM -no concerns on device check, 45% RA paced, 7% RV paved -no concerns at this time for pacing induced cardiomyopathy [facility] 11-12-2022 Note -this is chronic, he does not want to start a diuretic at this time -discussed pending his results from the echo he will have sent over we may need to start some sort of diuretic such as thiazide, MRA, and any additional medications indicated [facility] 11-12-2022 Note -no concerns on sallie ce check -follow up with device check in 6 months [facility] 11-07-2022 Note Patient here for 6 m o follow up sick sinus syndrome and sinus bradycardia. His device was interrogated in the office 2 weeks ago. He was admitted to [facility] last month for c diff. Feeling much better. Denies chest pain, SOB, and palpitations. Was not able to tolerate cpap machine. Review of Systems Constitutional: Positive for malaise/fatigue. Musculoskeletal: Positive for arthritis, back pain, muscle weakness and myalgias. All other systems reviewed and are negative. [facility] 11-07-2022 Note [place] Cardiology Note [facility] Reason for visit: 6 month follow [...] states he recently admitted for c-diff at [facility] after recently being on antibiotics, he had [...] was initiated by the patient and conducted why-ncte-uw-face with use of audio-only real time telephone [...] been officially ev (more content not included)... [facility] 03-23-2022 Note EXAM: XR CHEST 2 V [...] authenticated by: ALONSO MASON Date: 2022-03-23 12:58 [facility] Summary Purpose Family History No Family [...] section and content) DATE CREATED AUTHOR 01/29/2022 [facility] DATE CREATED AUTHOR AUTHOR'S ORGANIZ ATION 04/23/2022 [facility] DATE CREATED AUTHOR AUTHOR'S ORGANIZ ATION 01/18/2023 [facility] DATE CREATED AUTHOR AUTHOR'S ORGANIZ ATION 08/28/2023 [facility] DATE CREATED AUTHOR AUTHOR'S ORGANIZ ATION 09/19/2023 [facility] FOR RECORDS PERTAINING TO PATIENTS WHO ARE [...] BE BASED ON THE PRIMARY CLINICAL RECORDS. [facility] [employer] [facility]. provides no warranty or guarantee of the accuracy or completeness of information in this document.
[2023-12-30 09:26] VITALS: BP 138/84; PULSE 76; RESP 16; TEMP 36.8; O2SAT 96
[2023-12-30 09:56] VITALS: BP 155/97; PULSE 64; RESP 18; O2SAT 95
[2023-12-30 09:57] VITALS: BP 201/88; PULSE 63; RESP 18; O2SAT 94
--- NOTE | 2023-12-30 09:59 | P.ON_ITS ---
Date of procedure: 12/30/23 Pre-op diagnosis: Lumbar stenosis with neurogenic claudication Post-op diagnosis: same as pre-op Procedure: Procedure: Right L2-3, L5-S1 transforaminal epidural steroid injection Medications: Bupivacaine 0.25% 2cc, lidocaine 2% 1cc, dexamethasone 10mg The patient was seen and examined in the preoperative holding area.? Informed consent was obtained and placed on the chart.? Patient was brought to the medical procedure unit and placed in the prone position where a timeout was completed verifying the correct patient, procedure site, position, and planned special equipment using sterile aseptic technique.? Under direct fluoroscopic visualization a 25-gauge Quincke tipped spinal needle was advanced to the designated neural foramen where contrast dye was injected to show adequate spread.? The needle was inserted at level right L2-3. There was no evidence of vascular or adverse uptake.? Epidural spread was appreciated.? The above- mentioned injectate was then placed in a 1.5 mL aliquot preceded by negative aspiration.? The needle was removed. The needle was inserted and the procedure repeated at level right L5-S1.? The surgery site was covered.? Patient was taken to the postprocedural recovery area and monitored for an appropriate length of time before found suitable for discharge in the accompaniment of a responsible adult. Anesthesia: Local Surgeon: Urvashi Rawls Pathology: none sent Condition: stable Disposition: no change
[2023-12-30] MEDS: BUPIVACAINE HCL 0.25% PF 25 MG/10 ML VIAL INJ (10:00)
[2023-12-30] MEDS: 0.9 % SODIUM CHLORIDE 10 ML INJ (10:00)
[2023-12-30] MEDS: LIDOCAINE HCL 2% PF 100 MG/5 ML VIAL 2.5 ML INJ (10:01)
[2023-12-30] MEDS: DEXAMETHASONE SOD PHOS 10 MG/ML VIAL INJ (10:01)
[2023-12-30] MEDS: IOHEXOL 240 MG/ML - 10 ML VIAL 24 MG INJ (10:01)
== END 2023-12-30 10:10 | disposition home or self-care (01) ==
PROVIDERS: PCP Family Medicine; Visit Provider Anesthesiology
DX: M48.062 Spinal stenosis, lumbar region with neurogenic claudication (principal)
CPT/HCPCS: 64483; 64484; J0665; J1100; Q9966

== ENCOUNTER 2024-01-15 13:33 | Outpatient (OUT) | payer MEDICARE, OTHER, SELFPAY ==
--- OUTSIDE RECORDS SUMMARY | 2024-01-15 13:42 | XMS_ITS | CCD ---
Author Name Unknown Address [address] [place] [address] Organization [facility] Care Team Providers Care Helicopter Engineer Name Role Phone MODESTO BECERRA Admitting Unavailable [...] HOY ., DR ZARATE Primary Care Unavailable REGGIE, GAGANDEEP Attending Unavailable REGGIE, GAGANDEEP Admitting Unavailable HOY [...] RADU Referring Unavailable THELMA, RADU Attending Unavailable JONASJOSE Attending Unavailable THELMA, RADU Referring Unavailable FRANCISCOMODESTO MORROW Referring Unavailable HOLLY LERAM Attending Unavailable ALGHOMAJOR VILLAREAL Attending Unavailable ALGMAJOR ATWOOD Attending Unavailable FRANCISCO, MODESTO Referring Unavailable Giedraitis , Andrius Yves Attending Unavailable Giedraitis , Andrius Vytautclaritza Attending Unavailable Giedraitis , Andrius Vytautas Attending Unavailable Giedraitis , Andrius Vytautas Attending Unavailable Giedraitis , Andrius Vytautas Attending Unavailable Allergies Allergy Classification Reported Allergen(s) Allergy Type Date of Onset Reaction(s) Facility (2 sources) Azithromycin; Translations: [AZITHROMYCIN] Drug Allergy 2 [facility] Repository (2 sources) Azithromycin Drug Allergy 5 [facility] Repository (1 source) Ciprofloxacin Drug Allergy 3 [facility] Repository (1 source) ALLERGIES NOT ON FILE; Translations: [ALLERGIES NOT ON FILE] Propensity to adverse reactions (disorder) [facility] Repository Problems Active Problems Problem Classification [...] 10-01-2022 Episodic Other aftercare (1 source) 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; Translations: [OTH JAIL CURRENT DRUG THERAPY] Onset: 03-19-2022 Episodic Pneumonia [...] Range Facility Office Visiton 05-13-2023 Follow-up visit [id number] Wayne Oneal 1950 M Date Provider Department Center 05/13/2023 [id number][facility] Family History Problem Relation Age of Onset Coronary artery disease Mother Family Status - Relation Status Age at Mother Level of Service:58334 [place] OFFICE/OUTPATIENT ESTABLISHED MOD MDM 30-39 MIN Normal [facility] Orders Onlyon 05-13-2023 Orders Only [id number] Wayne Oneal A 1950 Date Provider Department Center 05/13/2023 Royal-BRAYAN AU RAMAKRISHNA Lucero Family History Problem Relation Age of Onset Coronary artery disease Mother Family Status - Relation Status Age at Mother [facility] 29on 05-08-2023 29 Addended by: LEANA HENNING on: 05/09/2023 01:46 PM Modules accepted: Orders [facility] Consulton 05-08-2023 Consult [id number] Wayne Oneal A 1950 Date Provider Department Center 05/08/2023 384-JOSE QUINONEZ HVCVASENDO [facility] Family History Problem Relation Age of Onset Coronary artery disease Mother Family Status - Relation Status Age at Mother Level of Service:63979 [place] OFFICE/OUTPATIENT NEW MODERATE MDM 45-59 MINUTES Reason for Visit and Comments: New Patient [632] - Numbness in bilateral legs [facility] Follow-Upon 04-09-2023 Follow-Up [id number] Wayne Oneal A 1950 Date Provider Department Center 04/09/2023 [id number] [facility] [place] Family History Problem Relation Age of Onset Coronary artery disease Mother Family Status - Relation Status Age at Mother Level of Service:02568 [place] OFFICE/OUTPATIENT ESTABLISHED LOW MDM 20-29 MIN Reason for Visit and Comments: Follow-up [930260] - follow up s/p SAGAR, XR; When patient bends over it tends to pull his back muscles and when he gets back up he is in pain. Walking a long distance he is in lots of pain. [facility] 36on 04-02-2023 36 Pt was called and scheduled a follow up with Dr. Renee to review results. [facility] 36 Brian is asking fo r an answer to left lower back pain. Had the US done and is not having any relief in his back. [facility] Telephoneon 04-02-2023 Telephone [id number] Wayne Oneal A 1950 Date Provider Department Center 04/02/2023 554-[facility] [place] Family History Problem Relation Age of Onset Coronary artery disease Mother Family Status - Relation Status Age at Mother Normal [facility] Consulton 03-26-2023 Consult [id number] Wayne Oneal 1950 M Date Provider Department Center 03/26/2023 [id number]-RADU [facility] [place] Family History Problem Relation Age of Onset Coronary artery disease Mother Family Status - Relation Status Age at Mother Level of Service:14705 [place] OFFICE/OUTPATIENT NEW MODERATE MDM 45-59 MINUTES Reason for Visit and Comments: Consult [150] - Pt is here for a CO visit for Osteophyte. Normal [facility] MR LUMBAR SPINE W AND WO [...] previous results Electronically signed: Asher Tomlinson. Normal [facility] Comment on above: Order Comment: Order [...] appropriate caregiver. Electronically signed: Renu Han. Normal [facility] Comment on above: Order Comment: Order in [facility] NURSNOTEon 01-31-2023 NURSNOTE Patient tolerated well Normal [facility] NURSNOTE 1325 Patient arrived Biotronik at bedside placed patient Automatic MRI mode DDO paced at 70bpm. Patient on Monitor,continuous ECG, BP q 15min and SPO2 Normal [facility] NURSNOTE Exam completed and patient showed original settings after away from gantry. Normal [facility] Covid-19 PCR (CVDTBH)on SARS-CoV-2 (COVID-19) RNA VENESSA+probe Ql (Unsp spec) Not detected Normal NOT DETECTED [facility] Comment on above: Result Comment: When [...] for this test is supported by the [employer] of Health and Human Service's declaration that [...] Performed By: #### B MP, BNP #### [facility] [address] [place] [address] Dr. Leni Hamlin INFLUENZA A AND B AGon 01-[facility] BELOW Normal [facility] Comment on above: Result Comment: Nega tive for Flu A protein angiten. Infection due to Flu A cannot be ruled out. Flu A angiten in the sample may be below the detection limit of the test. Performed By: #### C RP #### [facility] [address] [place] [address] Dr. Leni Ham[facility] SEE BELOW Normal [facility] Comment on above: Result Comment: Nega tive for Flu B protein antigen. Infection due to Flu B cannot be ruled out. Flu B antigen in the sample may be below the detection limit of the test. Performed By: #### C RP #### [facility] [address] [place] [address] Dr. Leni Hamlin INFLUENZA A AG Negative Normal NEGATIVE SEE COMMENT [facility] Comment on above: Performed By: #### C RP #### [facility] [address] [place], [place] [id number] Dr. Leni Hamlin INFLUENZA B AG Negative Normal NEGATIVE SEE COMMENT [facility] Comment on above: Performed By: #### C #### [facility] [address] [place], [place] [id number] Dr. Leni Hamlin CT LSPINE WO CONon [...] CIERA HERNÁNDEZ Date: 2022-12-18 15:56 Normal [facility] Office Visiton 11-07-2022 Follow-up visit [id number] Wayne Oneal 1950 M Date Provider Department Center 11/07/2022 HOLLY HILARIO CARD [facility] Family History Problem Relation Age of Onset Coronary artery disease Mother Family Status - Relation Status Age at Mother Level of Service:34087 [place] OFFICE/OUTPATIENT ESTABLISHED [facility] 10-19 MIN Reason for Visit and Comments: sick sinus syndrome [Other] sinus bradycardia [Other] Normal [facility] CBC AUTO DIFFon 10-03-2022 BASO # 0.1 103/ul Normal 0.0-0.1 [facility] Comment on above: Performed By: #### B MP, BNP #### [facility] [address] [place] [address] Dr. Leni Hamlin Basophils/100 WBC (Bld) 0.5 % Normal 0.2-2.0 [facility] Comment on above: Performed By: #### B MP, BNP #### [facility] [address] [place] [address] Dr. Leni Hamlin EO # 0.3 103/ul Normal 0.0-0.7 [facility] Comment on above: Performed By: #### B MP, BNP #### [facility] [address] [place] [address] Dr. Leni Hamlin Eosinophils/100 WBC (Bld) 2.2 % Normal 0.9-7.0 [facility] Comment on above: Performed By: #### B MP, BNP #### [facility] [address] [place] [address] Dr. Leni Hamlin Erythrocyte distribution width (RBC) [Ratio] 13.3 % Normal 11.0-15.0 [facility] Comment on above: Performed By: #### B MP, BNP #### [facility] [address] [place] [address] Dr. Leni Hamlin Hematocrit (Bld) [Volume fraction] 46.9 % Normal 42.0-54.0 [facility] Comment on above: Performed By: #### B MP, BNP #### [facility] [address] [place] [address] Dr. Leni Hamlin Hemoglobin (Bld) [Mass/Vol] 15.3 g/dL Normal 14.0-18.0 [facility] Comment on above: Performed By: #### B MP, BNP #### [facility] [address] [address] [address] Leni Hamlin IG # 0.18 10e3/ul Critically high 0.00-0.03 [facility] Comment on above: Performed By: #### B MP, BNP #### [facility] [address] [address] [address] Leni Hamlin IG % 1.3 % Critically high 0.0-0.5 [facility] Comment on above: Performed By: #### B MP, BNP #### [facility] [address] [address] [address] Leni Hamlin LYMPH # 1.9 103/ul Normal 1.2-3.8 [facility] Comment on above: Performed By: #### B MP, BNP #### [facility] [address] [address] [address] Leni Hamlin Lymphocytes/100 WBC (Bld) 13.6 % Critically low 20.5-60.0 [facility] Comment on above: Performed By: #### B MP, BNP #### [facility] [address] [place] [address] Dr. Leni Hamlin MANUAL DIFF REQ NO Normal [facility] Comment on above: Performed By: #### B MP, BNP #### [facility] [address] [address] [address] Leni Hamlin MCH (RBC) [Entitic mass] 29.2 pg Normal 25.9-34.0 [facility] Comment on above: Performed By: #### B MP, BNP #### [facility] [address] [address] [address] Leni Hamlin MCHC (RBC) [Mass/Vol] 32.6 g/dL Normal 29.9-35.2 [facility] Comment on above: Performed By: #### B MP, BNP #### [facility] [address] [address] [address] Leni Hamlin MCV (RBC) [Entitic vol] 89.5 fL Normal 80.0-94.0 [facility] Comment on above: Performed By: #### B MP, BNP #### [facility] [address] [place] [address] Dr. Leni Hamlin MONO # 0.9 103/ul Critically high 0.3-0.8 [facility] Comment on above: Performed By: #### B MP, BNP #### [facility] [address] [place] [address] Dr. Leni Hamlin Monocytes/100 WBC (Bld) 6.6 % Normal 1.7-12.0 [facility] Comment on above: Performed By: #### B MP, BNP #### [facility] [address] [place] [address] Dr. Leni Hamlin NEUT # 10.4 103/ul Critically high 1.4-6.5 [facility] Comment on above: Performed By: #### B MP, BNP #### [facility] [address] [place] [address] Dr. Leni Hamlin Neutrophils/100 WBC (Bld) 75.8 % Critically high 43.0-75.0 [facility] Comment on above: Performed By: #### B MP, BNP #### [facility] [address] [place] [address] Dr. Leni Hamlin Platelet mean volume (Bld) [Entitic vol] 10.6 fL Normal 9.5-13.5 [facility] Comment on above: Performed By: #### B MP, BNP #### [facility] [address] [place] [address] Dr. Leni Hamlin PLT 143 103/ul Critically low 150-450 [facility] Comment on above: Performed By: #### B MP, BNP #### [facility] [address] [place] [address] Dr. Leni Hamlin RBC 5.24 106/ul Normal 4.70-6.10 [facility] Comment on above: Performed By: #### B MP, BNP #### [facility] [address] [place] [address] Dr. Leni Hamlin WBC 13.7 103/ul Critically high 4.0-11.0 [facility] Comment on above: Performed By: #### B MP, BNP #### [facility] [address] [place] [address] Dr. Leni Hamlin CRPon 10-03-2022 CRP 7.6 mg/dL Critically high <=1.0 [facility] Comment on above: Performed By: #### C MP, CRP #### [facility] [address] [place] [address] Dr. Leni Hamlin PROF 14(COMP METB)on 022 Albumin [Mass/Vol] 2.5 g/dL Critically low 3.4-5.0 Th [facility] Comment on above: Performed By: #### C MP, CRP #### [facility] [address] [place] [address] Dr. Leni Hamlin Albumin/Globulin [Mass ratio] 0.7 {ratio} Normal [facility] Comment on above: Performed By: #### C MP, CRP #### [facility] [address] [place] [address] Dr. Leni Hamlin ALP [Catalytic activity/Vol] 54 U/L Normal 46-116 [facility] Comment on above: Performed By: #### C MP, CRP #### [facility] [address] [place] [address] Dr. Leni Hamlin ALT [Catalytic activity/Vol] 11 U/L Critically low 16-63 [facility] Comment on above: Performed By: #### C MP, CRP #### [facility] [address] [place] [address] Dr. Leni Hamlin Anion gap [Moles/Vol] 8.8 mmol/L Normal [facility] Comment on above: Performed By: #### C MP, CRP #### [facility] [address] [place] [address] Dr. Leni Hamlin AST [Catalytic activity/Vol] 9 U/L Critically low 15-37 [facility] Comment on above: Performed By: #### C MP, CRP #### [facility] [address] [place] [address] Dr. Leni Hamlin Bilirubin [Mass/Vol] 0.3 mg/dL Normal 0.2-1.0 [facility] Comment on above: Performed By: #### C MP, CRP #### [facility] [address] [place] [address] Dr. Leni Hamlin Calcium [Mass/Vol] 8.6 mg/dL Normal 8.5-10.1 [facility] Comment on above: Performed By: #### C MP, CRP #### [facility] [address] [place] [address] Dr. Leni Hamlin Chloride [Moles/Vol] 103 mmol/L Normal 98-107 [facility] Comment on above: Performed By: #### C MP, CRP #### [facility] [address] [place] [address] Dr. Leni Hamlin CO2 [Moles/Vol] 29.2 mmol/L Normal 21.0-32.0 [facility] Comment on above: Performed By: #### C MP, CRP #### [facility] [address] [place] [address] Dr. Leni Hamlin Creatinine [Mass/Vol] 1.20 mg/dL Normal 0.70-1.30 [facility] Comment on above: Performed By: #### C MP, CRP #### [facility] [address] [place] [address] Dr. Leni Hamlin EGFR-AF IVORIAN >60 Normal >=60 [facility] Comment on above: Performed By: #### C MP, CRP #### [facility] [address] [place] [address] Dr. Leni Hamlin EGFR-NON AF IVORIAN 59 mL/min/1.73m2 Critically low >=60 [facility] Comment on above: Performed By: #### C MP, CRP #### [facility] [address] [place] [address] Dr. Leni Hamlin Globulin (S) [Mass/Vol] 3.4 g/dL Normal [facility] Comment on above: Performed By: #### C MP, CRP #### [facility] [address] [place] [address] Dr. Leni Hamlin Glucose [Mass/Vol] 108 mg/dL Critically high 74-[address] [facility] Comment on above: Performed By: #### C MP, CRP #### [facility] [address] [place] [address] Dr. Leni Hamlin Potassium [Moles/Vol] 4.0 mmol/L Normal 3.5-5.1 [facility] Comment on above: Performed By: #### C MP, CRP #### [facility] [address] [place] [address] Dr. Leni Hamlin Protein [Mass/Vol] 5.9 g/dL Critically low 6.4-8.2 Th [facility] Comment on above: Performed By: #### C MP, CRP #### [facility] [address] [place] [address] Dr. Leni Hamlin Sodium [Moles/Vol] 137 mmol/L Normal 136-145 [facility] Comment on above: Performed By: #### C MP, CRP #### [facility] [address] [place] [address] Dr. Leni Hamlin Urea nitrogen [Mass/Vol] 15.0 mg/dL Normal 7.0-18.0 [facility] Comment on above: Performed By: #### C MP, CRP #### [facility] [address] [place] [address] Dr. Leni Hamlin Urea nitrogen/Creatinine [Mass ratio] 12.5 mg/mg Normal [facility] Comment on above: Performed By: #### C MP, CRP #### [facility] [address] [place] [address] Dr. Leni Hamlin CBC AUTO DIFFon 10-02-2022 BASO # 0.1 103/ul Normal 0.0-0.1 [facility] Comment on above: Performed By: #### C MP, CRP #### [facility] [address] [place] [address] Dr. Leni Hamlin Basophils/100 WBC (Bld) 0.5 % Normal 0.2-2.0 [facility] Comment on above: Performed By: #### C MP, CRP #### [facility] [address] [address] [address] Leni Hamlin EO # 0.2 103/ul Normal 0.0-0.7 [facility] Comment on above: Performed By: #### C MP, CRP #### [facility] [address] [address] [address] Leni Hamlin Eosinophils/100 WBC (Bld) 1.6 % Normal 0.9-7.0 [facility] Comment on above: Performed By: #### C MP, CRP #### [facility] [address] [place] [address] Dr. Leni Hamlin Erythrocyte distribution width (RBC) [Ratio] 13.4 % Normal 11.0-15.0 [facility] Comment on above: Performed By: #### C MP, CRP #### [facility] [address] [place] [address] Dr. Leni Hamlin Hematocrit (Bld) [Volume fraction] 46.6 % Normal 42.0-54.0 [facility] Comment on above: Performed By: #### C MP, CRP #### [facility] [address] [place] [address] Dr. Leni Hamlin Hemoglobin (Bld) [Mass/Vol] 15.1 g/dL Normal 14.0-18.0 [facility] Comment on above: Performed By: #### C MP, CRP #### [facility] [address] [place] [address] Dr. Leni Hamlin IG # 0.21 10e3/ul Critically high 0.00-0.03 [facility] Comment on above: Performed By: #### C MP, CRP #### [facility] [address] [place] [address] Dr. Leni Hamlin IG % 1.4 % Critically high 0.0-0.5 [facility] Comment on above: Performed By: #### C MP, CRP #### [facility] [address] [place] [address] Dr. Leni Hamlin LYMPH # 1.9 103/ul Normal 1.2-3.8 [facility] Comment on above: Performed By: #### C MP, CRP #### [facility] [address] [address] [address] Leni Hamlin Lymphocytes/100 WBC (Bld) 12.4 % Critically low 20.5-60.0 [facility] Comment on above: Performed By: #### C MP, CRP #### [facility] [address] [address] [address] Leni Hamlin MANUAL DIFF REQ NO Normal [facility] Comment on above: Performed By: #### C MP, CRP #### [facility] [address] [address] [address] Leni Hamlin MCH (RBC) [Entitic mass] 28.9 pg Normal 25.9-34.0 [facility] Comment on above: Performed By: #### C MP, CRP #### [facility] [address] [place] [address] Dr. Leni Hamlin MCHC (RBC) [Mass/Vol] 32.4 g/dL Normal 29.9-35.2 [facility] Comment on above: Performed By: #### C MP, CRP #### [facility] [address] [place] [address] Dr. Leni Hamlin MCV (RBC) [Entitic vol] 89.3 fL Normal 80.0-94.0 [facility] Comment on above: Performed By: #### C MP, CRP #### [facility] [address] [place] [address] Dr. Leni Hamlin MONO # 1.1 103/ul Critically high 0.3-0.8 [facility] Comment on above: Performed By: #### C MP, CRP #### [facility] [address] [place] [address] Dr. Leni Hamlin Monocytes/100 WBC (Bld) 6.9 % Normal 1.7-12.0 [facility] Comment on above: Performed By: #### C MP, CRP #### [facility] [address] [place] [address] Dr. Leni Hamlin NEUT # 11.8 103/ul Critically high 1.4-6.5 [facility] Comment on above: Performed By: #### C MP, CRP #### [facility] [address] [address] [address] Leni Hamlin Neutrophils/100 WBC (Bld) 77.2 % Critically high 43.0-75.0 [facility] Comment on above: Performed By: #### C MP, CRP #### [facility] [address] [address] [address] Leni Hamlin Platelet mean volume (Bld) [Entitic vol] 10.5 fL Normal 9.5-13.5 [facility] Comment on above: Performed By: #### C MP, CRP #### [facility] [address] [place] [address] Dr. Leni Hamlin PLT 138 103/ul Critically low 150-450 [facility] Comment on above: Performed By: #### C MP, CRP #### [facility] [address] [address] [address] Leni Hamlin RBC 5.22 106/ul Normal 4.70-6.10 [facility] Comment on above: Performed By: #### C MP, CRP #### [facility] [address] [address] [address] Leni Hamlin WBC 15.3 103/ul Critically high 4.0-11.0 [facility] Comment on above: Performed By: #### C MP, CRP #### [facility] [address] [address] [address] Leni Hamlin CRPon 10-02-2022 CRP 13.7 mg/dL Critically high <=1.0 [facility] Comment on above: Performed By: #### C VDAGS #### [facility] [address] [place] [address] Dr. Leni Hamlin PROF 14(COMP METB)on 022 Albumin [Mass/Vol] 2.5 g/dL Critically low 3.4-5.0 Th [facility] Comment on above: Performed By: #### C VDAGS #### [facility] [address] [place] [address] Dr. Leni Hamlin Albumin/Globulin [Mass ratio] 0.8 {ratio} Normal [facility] Comment on above: Performed By: #### C VDAGS #### [facility] [address] [place] [address] Dr. Leni Hamlin ALP [Catalytic activity/Vol] 54 U/L Normal 46-116 [facility] Comment on above: Performed By: #### C VDAGS #### [facility] [address] [address] [address] Leni Hamlin ALT [Catalytic activity/Vol] 13 U/L Critically low 16-63 [facility] Comment on above: Performed By: #### C VDAGS #### [facility] [address] [place] [address] Dr. Leni Hamlin Anion gap [Moles/Vol] 10.6 mmol/L Normal [facility] Comment on above: Performed By: #### C VDAGS #### [facility] [address] [address] [address] Leni Hamlin AST [Catalytic activity/Vol] 9 U/L Critically low 15-37 [facility] Comment on above: Performed By: #### C VDAGS #### [facility] [address] [place] [address] Dr. Leni Hamlin Bilirubin [Mass/Vol] 0.3 mg/dL Normal 0.2-1.0 [facility] Comment on above: Performed By: #### C VDAGS #### [facility] [address] [address] [address] Leni Hamlin Calcium [Mass/Vol] 8.5 mg/dL Normal 8.5-10.1 [facility] Comment on above: Performed By: #### C VDAGS #### [facility] [address] [place] [address] Dr. Leni Hamlin Chloride [Moles/Vol] 104 mmol/L Normal 98-107 [facility] Comment on above: Performed By: #### C VDAGS #### [facility] [address] [place] [address] Dr. Leni Hamlin CO2 [Moles/Vol] 27.5 mmol/L Normal 21.0-32.0 [facility] Comment on above: Performed By: #### C VDAGS #### [facility] [address] [address] [address] Leni Hamlin Creatinine [Mass/Vol] 1.26 mg/dL Normal 0.70-1.30 [facility] Comment on above: Performed By: #### C VDAGS #### [facility] [address] [address] [address] Leni Hamlin EGFR-AF IVORIAN >60 Normal >=60 [facility] Comment on above: Performed By: #### C VDAGS #### [facility] [address] [address] [address] Leni Hamlin EGFR-NON AF IVORIAN 56 mL/min/1.73m2 Critically low >=60 [facility] Comment on above: Performed By: #### C VDAGS #### [facility] [address] [address] [address] Leni Hamlin Globulin (S) [Mass/Vol] 3.3 g/dL Normal [facility] Comment on above: Performed By: #### C VDAGS #### [facility] [address] [place] [address] Dr. Leni Hamlin Glucose [Mass/Vol] 122 mg/dL Critically high 74-[address] [facility] Comment on above: Performed By: #### C VDAGS #### [facility] [address] [address] [address] Leni Hamlin Potassium [Moles/Vol] 4.1 mmol/L Normal 3.5-5.1 [facility] Comment on above: Performed By: #### C VDAGS #### [facility] [address] [place] [address] Dr. Leni Hamlin Protein [Mass/Vol] 5.8 g/dL Critically low 6.4-8.2 Th [facility] Comment on above: Performed By: #### C VDAGS #### [facility] [address] [address] [address] Leni Hamlin Sodium [Moles/Vol] 138 mmol/L Normal 136-145 [facility] Comment on above: Performed By: #### C VDAGS #### [facility] [address] [place] [address] Dr. Leni Hamlin Urea nitrogen [Mass/Vol] 20.0 mg/dL Critically high 7.0-18.0 [facility] Comment on above: Performed By: #### C VDAGS #### [facility] [address] [place] [address] Dr. Leni Hamlin Urea nitrogen/Creatinine [Mass ratio] 15.9 mg/mg Normal [facility] Comment on above: Performed By: #### C VDAGS #### [facility] [address] [place] [address] Dr. Leni Hamlin CBC AUTO DIFFon 10-01-2022 BASO # 0.1 103/ul Normal 0.0-0.1 [facility] Comment on above: Performed By: #### C MP, CRP #### [facility] [address] [place] [address] Dr. Leni Hamlin Basophils/100 WBC (Bld) 0.3 % Normal 0.2-2.0 [facility] Comment on above: Performed By: #### C MP, CRP #### [facility] [address] [place] [address] Dr. Leni Hamlin EO # 0.2 103/ul Normal 0.0-0.7 [facility] Comment on above: Performed By: #### C MP, CRP #### [facility] [address] [place] [address] Dr. Leni Hamlin Eosinophils/100 WBC (Bld) 0.8 % Critically low 0.9-7.0 [facility] Comment on above: Performed By: #### C MP, CRP #### [facility] [address] [place] [address] Dr. Leni Hamlin Erythrocyte distribution width (RBC) [Ratio] 13.6 % Normal 11.0-15.0 [facility] Comment on above: Performed By: #### C MP, CRP #### [facility] [address] [place] [address] Dr. Leni Hamlin Hematocrit (Bld) [Volume fraction] 49.0 % Normal 42.0-54.0 [facility] Comment on above: Performed By: #### C MP, CRP #### [facility] [address] [place] [address] Dr. Leni Hamlin Hemoglobin (Bld) [Mass/Vol] 16.0 g/dL Normal 14.0-18.0 [facility] Comment on above: Performed By: #### C MP, CRP #### [facility] [address] [place] [address] Dr. Leni Hamlin IG # 0.24 10e3/ul Critically high 0.00-0.03 [facility] Comment on above: Performed By: #### C MP, CRP #### [facility] [address] [place] [address] Dr. Leni Hamlin IG % 1.2 % Critically high 0.0-0.5 [facility] Comment on above: Performed By: #### C MP, CRP #### [facility] [address] [place] [address] Dr. Leni Hamlin LYMPH # 1.6 103/ul Normal 1.2-3.8 [facility] Comment on above: Performed By: #### C MP, CRP #### [facility] [address] [place] [address] Dr. Leni Hamlin Lymphocytes/100 WBC (Bld) 8.0 % Critically low 20.5-60.0 [facility] Comment on above: Performed By: #### C MP, CRP #### [facility] [address] [place] [address] Dr. Leni Hamlin MANUAL DIFF REQ NO Normal [facility] Comment on above: Performed By: #### C MP, CRP #### [facility] [address] [place] [address] Dr. Leni Hamlin MCH (RBC) [Entitic mass] 29.4 pg Normal 25.9-34.0 [facility] Comment on above: Performed By: #### C MP, CRP #### [facility] [address] [address] [address] Leni Hamlin MCHC (RBC) [Mass/Vol] 32.7 g/dL Normal 29.9-35.2 [facility] Comment on above: Performed By: #### C MP, CRP #### [facility] [address] [address] [address] Leni Hamlin MCV (RBC) [Entitic vol] 90.1 fL Normal 80.0-94.0 [facility] Comment on above: Performed By: #### C MP, CRP #### [facility] [address] [address] [address] Leni Hamlin MONO # 1.0 103/ul Critically high 0.3-0.8 [facility] Comment on above: Performed By: #### C MP, CRP #### [facility] [address] [address] [address] Leni Hamlin Monocytes/100 WBC (Bld) 5.1 % Normal 1.7-12.0 [facility] Comment on above: Performed By: #### C MP, CRP #### [facility] [address] [address] [address] Leni Hamlin NEUT # 16.8 103/ul Critically high 1.4-6.5 [facility] Comment on above: Performed By: #### C MP, CRP #### [facility] [address] [address] [address] Leni Hamlin Neutrophils/100 WBC (Bld) 84.6 % Critically high 43.0-75.0 [facility] Comment on above: Performed By: #### C MP, CRP #### [facility] [address] [address] [address] Leni Hamlin Platelet mean volume (Bld) [Entitic vol] 9.7 fL Normal 9.5-13.5 [facility] Comment on above: Performed By: #### C MP, CRP #### [facility] [address] [address] [address] Leni Hamlin PLT 138 103/ul Critically low 150-450 [facility] Comment on above: Performed By: #### C MP, CRP #### [facility] [address] [address] [address] Leni Hamlin RBC 5.44 106/ul Normal 4.70-6.10 [facility] Comment on above: Performed By: #### C MP, CRP #### [facility] [address] [address] [address] Leni Hamlin WBC 19.8 103/ul Critically high 4.0-11.0 [facility] Comment on above: Performed By: #### C MP, CRP #### [facility] [address] [address] [address] Leni Hamlin BASO # 0.1 103/ul Normal 0.0-0.1 [facility] Comment on above: Performed By: #### B MP, BNP #### [facility] [address] [address] [address] Leni Hamlin Basophils/100 WBC (Bld) 0.3 % Normal 0.2-2.0 [facility] Comment on above: Performed By: #### B MP, BNP #### [facility] [address] [address] [address] Leni Hamlin EO # 0.1 103/ul Normal 0.0-0.7 [facility] Comment on above: Performed By: #### B MP, BNP #### [facility] [address] [address] [address] Leni Hamlin Eosinophils/100 WBC (Bld) 0.7 % Critically low 0.9-7.0 [facility] Comment on above: Performed By: #### B MP, BNP #### [facility] [address] [address] [address] Leni Hamlin Erythrocyte distribution width (RBC) [Ratio] 13.6 % Normal 11.0-15.0 [facility] Comment on above: Performed By: #### B MP, BNP #### [facility] [address] [address] [address] Leni Hamlin Hematocrit (Bld) [Volume fraction] 46.9 % Normal 42.0-54.0 [facility] Comment on above: Performed By: #### B MP, BNP #### [facility] [address] [place] [address] Dr. Leni Hamlin Hemoglobin (Bld) [Mass/Vol] 15.5 g/dL Normal 14.0-18.0 [facility] Comment on above: Performed By: #### B MP, BNP #### [facility] [address] [place] [address] Dr. Leni Hamlin IG # 0.16 10e3/ul Critically high 0.00-0.03 [facility] Comment on above: Performed By: #### B MP, BNP #### [facility] [address] [place] [address] Dr. Leni Hamlin IG % 0.9 % Critically high 0.0-0.5 [facility] Comment on above: Performed By: #### B MP, BNP #### [facility] [address] [place] [address] Dr. Leni Hamlin LYMPH # 1.8 103/ul Normal 1.2-3.8 [facility] Comment on above: Performed By: #### B MP, BNP #### [facility] [address] [place] [address] Dr. Leni Hamlin Lymphocytes/100 WBC (Bld) 9.7 % Critically low 20.5-60.0 [facility] Comment on above: Performed By: #### B MP, BNP #### [facility] [address] [place] [address] Dr. Leni Hamlin MANUAL DIFF REQ NO Normal [facility] Comment on above: Performed By: #### B MP, BNP #### [facility] [address] [place] [address] Dr. Leni Hamlin MCH (RBC) [Entitic mass] 29.2 pg Normal 25.9-34.0 [facility] Comment on above: Performed By: #### B MP, BNP #### [facility] [address] [place] [address] Dr. Leni Hamlin MCHC (RBC) [Mass/Vol] 33.0 g/dL Normal 29.9-35.2 [facility] Comment on above: Performed By: #### B MP, BNP #### [facility] [address] [place] [address] Dr. Leni Hamlin MCV (RBC) [Entitic vol] 88.3 fL Normal 80.0-94.0 [facility] Comment on above: Performed By: #### B MP, BNP #### [facility] [address] [place] [address] Dr. Leni Hamlin MONO # 1.4 103/ul Critically high 0.3-0.8 [facility] Comment on above: Performed By: #### B MP, BNP #### [facility] [address] [place] [address] Dr. Leni Hamlin Monocytes/100 WBC (Bld) 7.3 % Normal 1.7-12.0 [facility] Comment on above: Performed By: #### B MP, BNP #### [facility] [address] [place] [address] Dr. Leni Hamlin NEUT # 15.1 103/ul Critically high 1.4-6.5 [facility] Comment on above: Performed By: #### B MP, BNP #### [facility] [address] [place] [address] Dr. Leni Hamlin Neutrophils/100 WBC (Bld) 81.1 % Critically high 43.0-75.0 [facility] Comment on above: Performed By: #### B MP, BNP #### [facility] [address] [place] [address] Dr. Leni Hamlin Platelet mean volume (Bld) [Entitic vol] 10.0 fL Normal 9.5-13.5 [facility] Comment on above: Performed By: #### B MP, BNP #### [facility] [address] [place] [address] Dr. Leni Hamlin PLT 141 103/ul Critically low 150-450 [facility] Comment on above: Performed By: #### B MP, BNP #### [facility] [address] [place] [address] Dr. Leni Hamlin RBC 5.31 106/ul Normal 4.70-6.10 [facility] Comment on above: Performed By: #### B MP, BNP #### [facility] [address] [place] [address] Dr. Leni Hamlin WBC 18.7 103/ul Critically high 4.0-11.0 [facility] Comment on above: Performed By: #### B MP, BNP #### [facility] [address] [place] [address] Dr. Leni Hamlin CRPon 10-01-2022 CRP 16.0 mg/dL Critically high <=1.0 [facility] Comment on above: Performed By: #### C VDAGS #### [facility] [address] [place] [address] Dr. Leni Hamlin PROF 14(COMP METB)on 022 Albumin [Mass/Vol] 2.6 g/dL Critically low 3.4-5.0 [facility] Comment on above: Performed By: #### C MP, CRP #### [facility] [address] [place] [address] Dr. Leni Hamlin Albumin/Globulin [Mass ratio] 0.8 {ratio} Normal [facility] Comment on above: Performed By: #### C MP, CRP #### [facility] [address] [place] [address] Dr. Leni Hamlin ALP [Catalytic activity/Vol] 44 U/L Critically low 46-116 [facility] Comment on above: Performed By: #### C MP, CRP #### [facility] [address] [place] [address] Dr. Leni Hamlin ALT [Catalytic activity/Vol] 12 U/L Critically low 16-63 [facility] Comment on above: Performed By: #### C MP, CRP #### [facility] [address] [place] [address] Dr. Leni Hamlin Anion gap [Moles/Vol] 8.7 mmol/L Normal [facility] Comment on above: Performed By: #### C MP, CRP #### [facility] [address] [address] [address] Leni Hamlin AST [Catalytic activity/Vol] 10 U/L Critically low 15-37 [facility] Comment on above: Performed By: #### C MP, CRP #### [facility] [address] [place] [address] Dr. Leni Hamlin Bilirubin [Mass/Vol] 0.8 mg/dL Normal 0.2-1.0 [facility] Comment on above: Performed By: #### C MP, CRP #### [facility] [address] [place] [address] Dr. Leni Hamlin Calcium [Mass/Vol] 8.3 mg/dL Critically low 8.5-10.1 [facility] Comment on above: Performed By: #### C MP, CRP #### [facility] [address] [place] [address] Dr. Leni Hamlin Chloride [Moles/Vol] 103 mmol/L Normal 98-107 [facility] Comment on above: Performed By: #### C MP, CRP #### [facility] [address] [place] [address] Dr. Leni Hamlin CO2 [Moles/Vol] 28.2 mmol/L Normal 21.0-32.0 [facility] Comment on above: Performed By: #### C MP, CRP #### [facility] [address] [place] [address] Dr. Leni Hamlin Creatinine [Mass/Vol] 1.24 mg/dL Normal 0.70-1.30 [facility] Comment on above: Performed By: #### C MP, CRP #### [facility] [address] [place] [address] Dr. Leni Hamlin EGFR-AF IVORIAN >60 Normal >=60 [facility] Comment on above: Performed By: #### C MP, CRP #### [facility] [address] [place] [address] Dr. Leni Hamlin EGFR-NON AF IVORIAN 57 mL/min/1.73m2 Critically low >=60 [facility] Comment on above: Performed By: #### C MP, CRP #### [facility] [address] [address] [address] Leni Hamlin Globulin (S) [Mass/Vol] 3.2 g/dL Normal [facility] Comment on above: Performed By: #### C MP, CRP #### [facility] [address] [address] [address] Leni Hamlin Glucose [Mass/Vol] 111 mg/dL Critically high 74-[address] [facility] Comment on above: Performed By: #### C MP, CRP #### [facility] [address] [address] [address] Leni Hamlin Potassium [Moles/Vol] 3.9 mmol/L Normal 3.5-5.1 [facility] Comment on above: Performed By: #### C MP, CRP #### [facility] [address] [place] [address] Dr. Leni Hamlin Protein [Mass/Vol] 5.8 g/dL Critically low 6.4-8.2 [facility] Comment on above: Performed By: #### C MP, CRP #### [facility] [address] [place] [address] Dr. Leni Hamlin Sodium [Moles/Vol] 136 mmol/L Normal 136-145 [facility] Comment on above: Performed By: #### C MP, CRP #### [facility] [address] [place] [address] Dr. Leni Hamlin Urea nitrogen [Mass/Vol] 17.0 mg/dL Normal 7.0-18.0 [facility] Comment on above: Performed By: #### C MP, CRP #### [facility] [address] [place] [address] Dr. Leni Hamlin Urea nitrogen/Creatinine [Mass ratio] 13.7 mg/mg Normal [facility] Comment on above: Performed By: #### C MP, CRP #### [facility] [address] [place] [address] Dr. Leni Hamlin C. DIFF PCRon 09-30-2022 C. DIFFICILE PCR Positive Critically abnormal NEGATIVE [facility] Comment on above: Performed By: #### C VDAGS #### [facility] [address] [address] [address] Leni Hamlin CBC AUTO DIFFon 09-30-2022 BASO # 0.0 103/ul Normal 0.0-0.1 [facility] Comment on above: Performed By: #### C BC #### [facility] [address] [place] [address] Dr. Leni Hamlin Basophils/100 WBC (Bld) 0.3 % Normal 0.2-2.0 [facility] Comment on above: Performed By: #### C BC #### [facility] [address] [place] [address] Dr. Leni Hamlin EO # 0.1 103/ul Normal 0.0-0.7 [facility] Comment on above: Performed By: #### C BC #### [facility] [address] [place] [address] Dr. Leni Hamlin Eosinophils/100 WBC (Bld) 0.8 % Critically low 0.9-7.0 [facility] Comment on above: Performed By: #### C BC #### [facility] [address] [place] [address] Dr. Leni Hamlin Erythrocyte distribution width (RBC) [Ratio] 13.4 % Normal 11.0-15.0 [facility] Comment on above: Performed By: #### C BC #### [facility] [address] [place] [address] Dr. Leni Hamlin Hematocrit (Bld) [Volume fraction] 50.4 % Normal 42.0-54.0 [facility] Comment on above: Performed By: #### C BC #### [facility] [address] [place] [address] Dr. Leni Hamlin Hemoglobin (Bld) [Mass/Vol] 16.2 g/dL Normal 14.0-18.0 [facility] Comment on above: Performed By: #### C BC #### [facility] [address] [place] [address] Dr. Leni Hamlin IG # 0.13 10e3/ul Critically high 0.00-0.03 [facility] Comment on above: Performed By: #### C BC #### [facility] [address] [place] [address] Dr. Leni Hamlin IG % 0.9 % Critically high 0.0-0.5 [facility] Comment on above: Performed By: #### C BC #### [facility] [address] [place] [address] Dr. Leni Hamlin LYMPH # 1.7 103/ul Normal 1.2-3.8 [facility] Comment on above: Performed By: #### C BC #### [facility] [address] [place] [address] Dr. Leni Hamlin Lymphocytes/100 WBC (Bld) 11.1 % Critically low 20.5-60.0 [facility] Comment on above: Performed By: #### C BC #### [facility] [address] [place] [address] Dr. Leni Hamlin MANUAL DIFF REQ NO Normal [facility] Comment on above: Performed By: #### C BC #### [facility] [address] [place] [address] Dr. Leni Hamlin MCH (RBC) [Entitic mass] 28.8 pg Normal 25.9-34.0 [facility] Comment on above: Performed By: #### C BC #### [facility] [address] [place] [address] Dr. Leni Hamlin MCHC (RBC) [Mass/Vol] 32.1 g/dL Normal 29.9-35.2 [facility] Comment on above: Performed By: #### C BC #### [facility] [address] [place] [address] Dr. Leni Hamlin MCV (RBC) [Entitic vol] 89.7 fL Normal 80.0-94.0 [facility] Comment on above: Performed By: #### C BC #### [facility] [address] [place] [address] Dr. Leni Hamlin MONO # 1.5 103/ul Critically high 0.3-0.8 [facility] Comment on above: Performed By: #### C BC #### [facility] [address] [address] [address] Leni Hamlin Monocytes/100 WBC (Bld) 9.8 % Normal 1.7-12.0 [facility] Comment on above: Performed By: #### C BC #### [facility] [address] [address] [address] Leni Hamlin NEUT # 11.7 103/ul Critically high 1.4-6.5 [facility] Comment on above: Performed By: #### C BC #### [facility] [address] [address] [address] Leni Hamlin Neutrophils/100 WBC (Bld) 77.1 % Critically high 43.0-75.0 [facility] Comment on above: Performed By: #### C BC #### [facility] [address] [place] [address] Dr. Leni Hamlin Platelet mean volume (Bld) [Entitic vol] 9.9 fL Normal 9.5-13.5 [facility] Comment on above: Performed By: #### C BC #### [facility] [address] [place] [address] Dr. Leni Hamlin PLT 156 103/ul Normal 150-450 [facility] Comment on above: Performed By: #### C BC #### [facility] [address] [place] [address] Dr. Leni Hamlin RBC 5.62 106/ul Normal 4.70-6.10 [facility] Comment on above: Performed By: #### C BC #### [facility] [address] [place] [address] Dr. Leni Hamlin WBC 15.2 103/ul Critically high 4.0-11.0 [facility] Comment on above: Performed By: #### C BC #### [facility] [address] [place] [address] Dr. Leni Hamlin CRPon 09-30-2022 CRP 7.6 mg/dL Critically high <=1.0 [facility] Comment on above: Performed By: #### C RP #### [facility] [address] [place], [place] [id number] Dr. Leni Hamlin PROF 14(COMP METB)on 022 Albumin [Mass/Vol] 2.8 g/dL Critically low 3.4-5.0 [facility] Comment on above: Performed By: #### C RP #### [facility] [address] [place] [address] Dr. Leni Hamlin Albumin/Globulin [Mass ratio] 0.9 {ratio} Normal [facility] Comment on above: Performed By: #### C RP #### [facility] [address] [place] [address] Dr. Leni Hamlin ALP [Catalytic activity/Vol] 45 U/L Critically low 46-116 [facility] Comment on above: Performed By: #### C RP #### [facility] [address] [place] [address] Dr. Leni Hamlin ALT [Catalytic activity/Vol] 17 U/L Normal 16-63 [facility] Comment on above: Performed By: #### C RP #### [facility] [address] [place] [address] Dr. Leni Hamlin Anion gap [Moles/Vol] 8.4 mmol/L Normal [facility] Comment on above: Performed By: #### C RP #### [facility] [address] [place] [address] Dr. Leni Hamlin AST [Catalytic activity/Vol] 9 U/L Critically low 15-37 [facility] Comment on above: Performed By: #### C RP #### [facility] [address] [place] [address] Dr. Leni Hamlin Bilirubin [Mass/Vol] 0.6 mg/dL Normal 0.2-1.0 [facility] Comment on above: Performed By: #### C RP #### [facility] [address] [place] [address] Dr. Leni Hamlin Calcium [Mass/Vol] 8.6 mg/dL Normal 8.5-10.1 [facility] Comment on above: Performed By: #### C RP #### [facility] [address] [place] [address] Dr. Leni Hamlin Chloride [Moles/Vol] 104 mmol/L Normal 98-107 [facility] Comment on above: Performed By: #### C RP #### [facility] [address] [address] [address] Leni Hamlin CO2 [Moles/Vol] 29.6 mmol/L Normal 21.0-32.0 [facility] Comment on above: Performed By: #### C RP #### [facility] [address] [address] [address] Leni Hamlin Creatinine [Mass/Vol] 1.23 mg/dL Normal 0.70-1.30 [facility] Comment on above: Performed By: #### C RP #### [facility] [address] [place] [address] Dr. Leni Hamlin EGFR-AF IVORIAN >60 Normal >=60 [facility] Comment on above: Performed By: #### C RP #### [facility] [address] [place] [address] Dr. Leni Hamlin EGFR-NON AF IVORIAN 58 mL/min/1.73m2 Critically low >=60 [facility] Comment on above: Performed By: #### C RP #### [facility] [address] [place] [address] Dr. Leni Hamlin Globulin (S) [Mass/Vol] 3.0 g/dL Normal [facility] Comment on above: Performed By: #### C RP #### [facility] [address] [place] [address] Dr. Leni Hamlin Glucose [Mass/Vol] 113 mg/dL Critically high 74-106 [facility] Comment on above: Performed By: #### C RP #### [facility] [address] [place] [address] Dr. Leni Hamlin Potassium [Moles/Vol] 4.0 mmol/L Normal 3.5-5.1 [facility] Comment on above: Performed By: #### C RP #### [facility] [address] [place] [address] Dr. Leni Hamlin Protein [Mass/Vol] 5.8 g/dL Critically low 6.4-8.2 [facility] Comment on above: Performed By: #### C RP #### [facility] [address] [place] [address] Dr. Leni Hamlin Sodium [Moles/Vol] 138 mmol/L Normal 136-145 [facility] Comment on above: Performed By: #### C RP #### [facility] [address] [place] [address] Dr. Leni Hamlin Urea nitrogen [Mass/Vol] 17.0 mg/dL Normal 7.0-18.0 [facility] Comment on above: Performed By: #### C RP #### [facility] [address] [place] [address] Dr. Leni Hamlin Urea nitrogen/Creatinine [Mass ratio] 13.8 mg/mg Normal [facility] Comment on above: Performed By: #### C RP #### [facility] [address] [place] [address] Dr. Leni Hamlin CBC AUTO DIFFon 09-29-2022 BASO # 0.1 103/ul Normal 0.0-0.1 [facility] Comment on above: Performed By: #### C VDAGS #### [facility] [address] [place] [address] Dr. Leni Hamlin Basophils/100 WBC (Bld) 0.4 % Normal 0.2-2.0 [facility] Comment on above: Performed By: #### C VDAGS #### [facility] [address] [place] [address] Dr. Leni Hamlin EO # 0.1 103/ul Normal 0.0-0.7 [facility] Comment on above: Performed By: #### C VDAGS #### [facility] [address] [place] [address] Dr. Leni Hamlin Eosinophils/100 WBC (Bld) 0.9 % Normal 0.9-7.0 [facility] Comment on above: Performed By: #### C VDAGS #### [facility] [address] [place] [address] Dr. Leni Hamlin Erythrocyte distribution width (RBC) [Ratio] 13.2 % Normal 11.0-15.0 [facility] Comment on above: Performed By: #### C VDAGS #### [facility] [address] [place] [address] Dr. Leni Hamlin Hematocrit (Bld) [Volume fraction] 53.1 % Normal 42.0-54.0 [facility] Comment on above: Performed By: #### C VDAGS #### [facility] [address] [place] [address] Dr. Leni Hamlin Hemoglobin (Bld) [Mass/Vol] 17.3 g/dL Normal 14.0-18.0 [facility] Comment on above: Performed By: #### C VDAGS #### [facility] [address] [place] [address] Dr. Leni Hamlin IG # 0.30 10e3/ul Critically high 0.00-0.03 [facility] Comment on above: Performed By: #### C VDAGS #### [facility] [address] [place] [address] Dr. Leni Hamlin IG % 2.2 % Critically high 0.0-0.5 [facility] Comment on above: Performed By: #### C VDAGS #### [facility] [address] [place] [address] Dr. Leni Hamlin LYMPH # 1.5 103/ul Normal 1.2-3.8 [facility] Comment on above: Performed By: #### C VDAGS #### [facility] [address] [place] [address] Dr. Leni Hamlin Lymphocytes/100 WBC (Bld) 10.5 % Critically low 20.5-60.0 [facility] Comment on above: Performed By: #### C VDAGS #### [facility] [address] [place] [address] Dr. Leni Hamlin MANUAL DIFF REQ NO Normal [facility] Comment on above: Performed By: #### C VDAGS #### [facility] [address] [place] [address] Dr. Leni Hamlin MCH (RBC) [Entitic mass] 29.0 pg Normal 25.9-34.0 [facility] Comment on above: Performed By: #### C VDAGS #### [facility] [address] [place] [address] Dr. Leni Hamlin MCHC (RBC) [Mass/Vol] 32.6 g/dL Normal 29.9-35.2 [facility] Comment on above: Performed By: #### C VDAGS #### [facility] [address] [place] [address] Dr. Leni Hamlin MCV (RBC) [Entitic vol] 88.9 fL Normal 80.0-94.0 [facility] Comment on above: Performed By: #### C VDAGS #### [facility] [address] [place] [address] Dr. Leni Hamlin MONO # 0.8 103/ul Normal 0.3-0.8 [facility] Comment on above: Performed By: #### C VDAGS #### [facility] [address] [place] [address] Dr. Leni Hamlin Monocytes/100 WBC (Bld) 6.0 % Normal 1.7-12.0 [facility] Comment on above: Performed By: #### C VDAGS #### [facility] [address] [place] [address] Dr. Leni Hamlin NEUT # 11.2 103/ul Critically high 1.4-6.5 [facility] Comment on above: Performed By: #### C VDAGS #### [facility] [address] [place] [address] Dr. Leni Hamlin Neutrophils/100 WBC (Bld) 80.0 % Critically high 43.0-75.0 [facility] Comment on above: Performed By: #### C VDAGS #### [facility] [address] [place] [address] Dr. Leni Hamlin Platelet mean volume (Bld) [Entitic vol] 9.6 fL Normal 9.5-13.5 [facility] Comment on above: Performed By: #### C VDAGS #### [facility] [address] [place], [place] [address] Dr. Leni Hamlin PLT 186 103/ul Normal 150-450 [facility] Comment on above: Performed By: #### C VDAGS #### [facility] [address] [place], [place] [address] Dr. Leni Hamlin RBC 5.97 106/ul Normal 4.70-6.10 [facility] Comment on above: Performed By: #### C VDAGS #### [facility] [address] [place], [place] [address] Dr. Leni Hamlin WBC 13.9 103/ul Critically high 4.0-11.0 [facility] Comment on above: Performed By: #### C VDAGS #### [facility] [address] [place], [place] [address] ABD/PELV W CONon 09-29-20 CT ABD/PELV W CON CT ABDOMEN AND [...] RAJESH CHACON Date: 2022-09-29 12:51 Normal [facility]11 SARS-CoV-2 (COVID-19) RNA VENESSA+probe Ql (Unsp spec) Not detected Normal NOT DETECTED [facility] Comment on above: Result Comment: When [...] for this test is supported by the [employer] of Health and Human Service's declaration that [...] Performed By: #### B MP, BNP #### [facility] [address] [place] [address] Dr. Leni Hamlin GI PANEL (PCR)on 09-29-2022 Adenovirus F 40/41 Not detected Normal NOT DETECTED [facility] Comment on above: Performed By: #### C RP #### [facility] [address] [place] [address] Dr. Leni Hamlin Astrovirus Not detected Normal NOT DETECTED [facility] Comment on above: Performed By: #### C RP #### [facility] [address] [place] [address] Dr. Leni Hamlin C. Diff toxin A/B Not detected Normal NOT DETECTED [facility] Comment on above: Performed By: #### C RP #### [facility] [address] [place] [address] Dr. Leni Hamlin Campylobacter Not detected Normal NOT DETECTED [facility] [place] [facility] Comment on above: Performed By: #### C RP #### [facility] [address] [place] [address] Dr. Leni Hamlin Cryptosporidium Not detected Normal NOT DETECTED [facility] Comment on above: Performed By: #### C RP #### [facility] [address] [place] [address] Dr. Leni Hamlin Cyclos. Cayetanensis Not detected Normal NOT DETECTED [facility] Comment on above: Performed By: #### C RP #### [facility] [address] [place] [address] Dr. Leni Hamlin E. Coli O157 Not Applicable Normal Not Applicable [facility] Comment on above: Performed By: #### C RP #### [facility] [address] [place] [address] Dr. Leni Hamlin E. histolytica Not detected Normal NOT DETECTED [facility] Comment on above: Performed By: #### C RP #### [facility] [address] [place] [address] Dr. Leni Hamlin EAEC Not detected Normal NOT DETECTED [facility] Comment on above: Performed By: #### C RP #### [facility] [address] [place] [address] Dr. Leni Hamlin EIEC Not detected Normal NOT DETECTED [facility] Comment on above: Performed By: #### C RP #### [facility] [address] [place] [address] Dr. Leni Hamlin EPEC Not detected Normal NOT DETECTED [facility] Comment on above: Performed By: #### C RP #### [facility] [address] [place] [address] Dr. Leni Hamlin ETEC Not detected Normal NOT DETECTED [facility] Comment on above: Performed By: #### C RP #### [facility] [address] [place] [address] Dr. Leni Hamlin G. Lamblia Not detected Normal NOT DETECTED [facility] Comment on above: Performed By: #### C RP #### [facility] [address] [place] [address] Dr. Leni DINGANEL CONTROLS PASSED Normal [facility] Comment on above: Performed By: #### C RP #### [facility] [address] [place] [address] Dr. Leni Hamlin GIPNL RAGHU HEADER GI PANEL BACTERIA Normal T [facility] Comment on above: Performed By: #### C RP #### [facility] [address] [place] [address] [address] Leni KAMARA ECOLI GI PANEL DIARRHEAGENIC E.COLI / SHIGELLA Normal [facility] Comment on above: Performed By: #### C RP #### [facility] [address] [place] [address] [address] Leni KAMARA INFO SEE BELOW Normal [facility] Comment on above: Result Comment: EAEC - Enteroaggregative E. Coli EPEC- Enteropathogenic E. Coli ETEC- Enterotoxigenic E. Coli lt/st STEC- Shigella-like toxin-producing E. Coli stx1/stx2 EIEC- Shigella/Enteroinvasive E. Coli Performed By: #### C RP #### [facility] [address] [address] [address] Leni KAMARA PARASITES GI PANEL PARASITES Normal [facility] Comment on above: Performed By: #### C RP #### [facility] [address] [place] [address] Dr. Leni KAMARA VIRUS GI PANEL VIRUSES Normal [facility] Comment on above: Performed By: #### C RP #### [facility] [address] [address] [address] Leni Hamlin Norovirus GI/GII Not detected Normal NOT DETECTED [facility] Comment on above: Performed By: #### C RP #### [facility] [address] [place] [address] [address] Leni Hamlin P. Shigelloides Not detected Normal NOT DETECTED [facility] Comment on above: Performed By: #### C RP #### [facility] [address] [address] [address] Leni Hamlin Rotavirus A Not detected Normal NOT DETECTED [facility] Comment on above: Performed By: #### C RP #### [facility] [address] [place] [address] Dr. Leni Hamlin Salmonella Not detected Normal NOT DETECTED [facility] Comment on above: Performed By: #### C RP #### [facility] [address] [place] [address] Dr. Leni Hamlin Sapovirus Not detected Normal NOT DETECTED [facility] Comment on above: Performed By: #### C RP #### [facility] [address] [place] [address] Dr. Leni Hamlin STEC Not detected Normal NOT DETECTED [facility] Comment on above: Performed By: #### C RP #### [facility] [address] [place] [address] Dr. Leni Hamlin Vibrio Not detected Normal NOT DETECTED [facility] Comment on above: Performed By: #### C RP #### [facility] [address] [place] [address] Dr. Leni Hamlin Vibrio Cholera Not detected Normal NOT DETECTED [facility] Comment on above: Performed By: #### C RP #### [facility] [address] [place] [address] Dr. Leni Hamlin Y. Enterocolitica Not detected Normal NOT DETECTED [facility] Comment on above: Performed By: #### C RP #### [facility] [address] [place] [address] Dr. Leni Hamlin PROF CHEM 8 (BAS METB)on Anion gap [Moles/Vol] 5.8 mmol/L Normal [facility] Comment on above: Performed By: #### C VDAGS #### [facility] [address] [place] [address] Dr. Leni Hamlin Calcium [Mass/Vol] 9.0 mg/dL Normal 8.5-10.[address] [facility] Comment on above: Performed By: #### C VDAGS #### [facility] [address] [place] [address] Dr. Leni Hamlin Chloride [Moles/Vol] 103 mmol/L Normal 98-107 [facility] Comment on above: Performed By: #### C VDAGS #### [facility] [address] [place] [address] Dr. Leni Hamlin CO2 [Moles/Vol] 31.7 mmol/L Normal 21.0-32.0 [facility] Comment on above: Performed By: #### C VDAGS #### [facility] [address] [address] [address] Leni Hamlin Creatinine [Mass/Vol] 1.28 mg/dL Normal 0.70-1.30 [facility] Comment on above: Performed By: #### C VDAGS #### [facility] [address] [place] [address] [address] Leni Hamlin EGFR-AF IVORIAN >60 Normal >=60 [facility] Comment on above: Performed By: #### C VDAGS #### [facility] [address] [address] [address] Leni Hamlin EGFR-NON AF IVORIAN 55 mL/min/1.73m2 Critically low >=60 [facility] Comment on above: Performed By: #### C VDAGS #### [facility] [address] [place] [address] [address] Leni Hamlin Glucose [Mass/Vol] 130 mg/dL Critically high 74-106 [facility] Comment on above: Performed By: #### C VDAGS #### [facility] [address] [place] [address] [address] Leni Hamlin Potassium [Moles/Vol] 4.5 mmol/L Normal 3.5-5.1 [facility] Comment on above: Performed By: #### C VDAGS #### [facility] [address] [place] [address] [address] Leni Hamlin Sodium [Moles/Vol] 136 mmol/L Normal 136-145 [facility] Comment on above: Performed By: #### C VDAGS #### [facility] [address] [place] [address] [address] Leni Hamlin Urea nitrogen [Mass/Vol] 23.0 mg/dL Critically high 7.0-18.0 [facility] Comment on above: Performed By: #### C VDAGS #### [facility] [address] [place] [address] [address] Leni Hamlin Urea nitrogen/Creatinine [Mass ratio] 18.0 mg/mg Normal [facility] Comment on above: Performed By: #### C VDAGS #### [facility] [address] [place] [address] Dr. Leni Hamlin Covid-19 PCR (CVDTB)on 08-13 SARS-CoV-2 (COVID-19) RNA VENESSA+probe Ql (Unsp spec) Not detected Normal NOT DETECTED [facility] Comment on above: Result Comment: When [...] for this test is supported by the [employer] Health and Human Service's declaration that [...] Performed By: #### C MP, CRP #### [facility] [address] [place] [address] Dr. Leni Halmin Covid-19 PCR (CVDTB)on 05-11 SARS-CoV-2 (COVID-19) RNA VENESSA+probe Ql (Unsp spec) Detected Critically abnormal NOT DETECTED [facility] Comment on above: Result Comment: This test is not yet approved or cleared by the [place] FDA. When there are no FDA-approved or cleared tests available, and other criteria are met, FDA can make tests available under an emergency access mechanism called an Emergency Use Authorization (EUA). The EUA for this test is supported by the [place] of Health and Human Service's (HHS's) declaration [...] used). Performed By: #### C RP #### [facility] [address] [place], [place] [id number] Dr. Leni Hamlin Covid-19 PCR (CVDTB)on 04-11 SARS-CoV-2 (COVID-19) RNA VENESSA+probe Ql (Unsp spec) Not detected Normal NOT DETECTED [facility] Comment on above: Result Comment: This test is not yet approved or cleared by the [place] FDA. When there are no FDA-approved or cleared tests available, and other criteria are met, FDA can make tests available under an emergency access mechanism called an Emergency Use Authorization (EUA). The EUA for this test is supported by the [place] of Health and Human Service's (HHS's) declaration [...] SARS-CoV-2. Performed By: #### C VDTB #### [facility] [address] [place] [address] [id number] [address] Leni Hamlin SYMPTOMATIC COVID-19 ANTIGEN on 04-23-2022 EUA Statement SEE BELOW Normal [facility] [place] Comment on above: Result Comment: This test [...] sooner. Performed By: #### C VDAGS #### [facility] [address] [place], [place] [address] Dr. Leni Hamlin SARS-CoV-2 (COVID-19) RNA VENESSA+probe Ql (Unsp spec) Negative Normal NEGATIVE [facility] Comment on above: Performed By: #### C VDAGS #### [facility] [address] [place], [place] [address] Dr. Leni Hamlin Cardiovascular Lab Reporton 03-22-2022 Cardiovascular Lab Report [facility] Patient Name: Brian Oneal [facility] MR #: [id number] Department of Physician: Modesto Becerra MD Medicine Service Date: 03/22/2022 Division of Birthdate: 1950 Cardiology Room #: Adult Cardiovascular Services [place] [address] Cardiovascular Laboratory Report PACEMAKER IMPLANT PROCEDURE NOTE [...] using modified seldinger technique using a 5 Bhutanese micro-puncture needle on two occasions and 0.35 [...] pocket was created for the device. 6 [place]anese Safesheaths were placed over the wire. An active fixation Biotronik pacing lead was then delivered through the 6Fsheath to the right ventricle. After confirmation of lead position on orthogonal views (RUBALCAVA and IRWIN) to confirm septal position, the screw was [...] lead position on orthogonal views (RUBALCAVA and IRWIN), the screw was activated. After confirmation of [...] Device info: Biotronik Edora Model# 8DR-T Serial# [id number] RA lead: Model# Biotronik Solia S45 Serial# [id number] Sensin.5mV Threshold: 0.6V@0.5ms Impedance: 507 Ohms RV lead: Model# Biotronik Solia S53 Serial# [id number] Sensin.5mV Threshold: 0.6V@0.4ms Impedance: 663 Ohms POST [...] El (more content not included)... Normal [facility] SPUTUM CULTUREon 03-17-2022 Epithelial cells LM Ql (Urine sed) Few Normal [facility] Comment on above: Performed By: #### B MP, BNP #### [facility] [address] [address] [address] Leni Hamlin Gram Stain Evaluation Comment Normal [facility] Comment on above: Result Comment: This specimen is of good quality and is acceptable for routine bacterial culture. Performed By: #### B MP, BNP #### [facility] [address] [address] [address] Leni Hamlin Lower Respiratory Culture Final report Normal [facility] Comment on above: Performed By: #### B MP, BNP #### [facility] [address] [address] [address] Leni Hamlin Result 1 Comment Normal [facility] Comment on above: Result Comment: Few gram negative rods. Performed By: #### B MP, BNP #### [facility] [address] [address] [address] Leni Hamlin Result Comment: Rout ine respiratory bola Result 2 Comment Normal [facility] Comment on above: Result Comment: Few gram positive cocci Performed By: #### B MP, BNP #### [facility] [address] [place] [address] Dr. Leni Hamlin Result 3 Comment Normal [facility] Comment on above: Result Comment: Rare gram positive rods Performed By: #### B MP, BNP #### [facility] [address] [place] [address] Dr. Leni Hamlin Result 4 Normal [facility] Comment on above: Performed By: #### B MP, BNP #### [facility] [address] [place] [address] Dr. Leni Hamlin White Blood Cells Few Normal [facility] [place] [facility] Comment on above: Performed By: #### B MP, BNP #### [facility] [address] [place] [address] Dr. Leni Hamlin BNPon 03-15-2022 Natriuretic peptide B (Bld) [Mass/Vol] 429.0 pg/mL Normal <=900.0 [facility] Comment on above: Performed By: #### C MP, CRP #### [facility] [address] [place] [address] Dr. Leni Hamlin CBC AUTO DIFFon 03-15-2022 BASO # 0.0 103/ul Normal 0.0-0.1 [facility] Comment on above: Performed By: #### C VDAGS #### [facility] [address] [place] [address] Dr. Leni Hamlin Basophils/100 WBC (Bld) 0.2 % Normal 0.2-2.0 [facility] Comment on above: Performed By: #### C VDAGS #### [facility] [address] [place] [address] Dr. Leni Hamlin EO # 0.0 103/ul Normal 0.0-0.7 [facility] Comment on above: Performed By: #### C VDAGS #### [facility] [address] [place] [address] Dr. Leni Hamlin Eosinophils/100 WBC (Bld) 0.0 % Critically low 0.9-7.0 [facility] Comment on above: Performed By: #### C VDAGS #### [facility] [address] [place] [address] Dr. Leni Hamlin Erythrocyte distribution width (RBC) [Ratio] 13.6 % Normal 11.0-15.0 [facility] Comment on above: Performed By: #### C VDAGS #### [facility] [address] [place] [address] Dr. Leni Hamlin Hematocrit (Bld) [Volume fraction] 44.5 % Normal 42.0-54.0 [facility] Comment on above: Performed By: #### C VDAGS #### [facility] [address] [place] [address] Dr. Leni Hamlin Hemoglobin (Bld) [Mass/Vol] 13.8 g/dL Critically low 14.0-18.0 [facility] Comment on above: Performed By: #### C VDAGS #### [facility] [address] [place] [address] Dr. Leni Hamlin IG # 0.35 10e3/ul Critically high 0.00-0.03 [facility] Comment on above: Performed By: #### C VDAGS #### [facility] [address] [place] [address] Dr. Leni Hamlin IG % 2.4 % Critically high 0.0-0.5 [facility] Comment on above: Performed By: #### C VDAGS #### [facility] [address] [place] [address] Dr. Leni Hamlin LYMPH # 0.6 103/ul Critically low 1.2-3.8 [facility] Comment on above: Performed By: #### C VDAGS #### [facility] [address] [place] [address] Dr. Leni Hamlin Lymphocytes/100 WBC (Bld) 4.1 % Critically low 20.5-60.0 [facility] Comment on above: Performed By: #### C VDAGS #### [facility] [address] [place] [address] Dr. Leni Hamlin MANUAL DIFF REQ NO Normal [facility] Comment on above: Performed By: #### C VDAGS #### [facility] [address] [address] [address] Leni Hamlin MCH (RBC) [Entitic mass] 29.4 pg Normal 25.9-34.0 [facility] Comment on above: Performed By: #### C VDAGS #### [facility] [address] [place] [address] Dr. Leni Hamlin MCHC (RBC) [Mass/Vol] 31.0 g/dL Normal 29.9-35.2 [facility] Comment on above: Performed By: #### C VDAGS #### [facility] [address] [place] [address] Dr. Leni Hamlin MCV (RBC) [Entitic vol] 94.7 fL Critically high 80.0-94.0 [facility] Comment on above: Performed By: #### C VDAGS #### [facility] [address] [place] [address] Dr. Leni Hamlin MONO # 0.7 103/ul Normal 0.3-0.8 [facility] Comment on above: Performed By: #### C VDAGS #### [facility] [address] [place] [address] Dr. Leni Hamlin Monocytes/100 WBC (Bld) 4.7 % Normal 1.7-12.0 [facility] Comment on above: Performed By: #### C VDAGS #### [facility] [address] [place] [address] Dr. Leni Hamlin NEUT # 12.9 103/ul Critically high 1.4-6.5 [facility] Comment on above: Performed By: #### C VDAGS #### [facility] [address] [place] [address] Dr. Leni Hamlin Neutrophils/100 WBC (Bld) 88.6 % Critically high 43.0-75.0 [facility] Comment on above: Performed By: #### C VDAGS #### [facility] [address] [place] [address] Dr. Leni Hamlin Platelet mean volume (Bld) [Entitic vol] 10.2 fL Normal 9.5-13.5 [facility] Comment on above: Performed By: #### C VDAGS #### [facility] [address] [place] [address] Dr. Leni Hamlin PLT 176 103/ul Normal 150-450 [facility] Comment on above: Performed By: #### C VDAGS #### [facility] [address] [place] [address] Dr. Leni Hamlin RBC 4.70 106/ul Normal 4.70-6.10 [facility] Comment on above: Performed By: #### C VDAGS #### [facility] [address] [place] [address] Dr. Leni Hamlin WBC 14.6 103/ul Critically high 4.0-11.0 [facility] Comment on above: Performed By: #### C VDAGS #### [facility] [address] [place] [address] Dr. Leni Hamlin PROF CHEM 8 (BAS METB)on Anion gap [Moles/Vol] 10.2 mmol/L Normal [facility] Comment on above: Performed By: #### C MP, CRP #### [facility] [address] [place] [address] Dr. Leni Hamlin Calcium [Mass/Vol] 8.0 mg/dL Critically low 8.5-10.1 [facility] Comment on above: Performed By: #### C MP, CRP #### [facility] [address] [place] [address] Dr. Leni Hamlin Chloride [Moles/Vol] 104 mmol/L Normal 98-107 [facility] Comment on above: Performed By: #### C MP, CRP #### [facility] [address] [place] [address] Dr. Leni Hamlin CO2 [Moles/Vol] 28.2 mmol/L Normal 21.0-32.0 [facility] Comment on above: Performed By: #### C MP, CRP #### [facility] [address] [place] [address] Dr. Leni Hamlin Creatinine [Mass/Vol] 1.36 mg/dL Critically high 0.70-1.30 [facility] Comment on above: Performed By: #### C MP, CRP #### [facility] [address] [place] [address] Dr. Leni Hamlin EGFR-AF IVORIAN >60 Normal >=60 [facility] Comment on above: Performed By: #### C MP, CRP #### [facility] [address] [address] [address] Leni Hamlin EGFR-NON AF IVORIAN 51 mL/min/1.73m2 Critically low >=60 [facility] Comment on above: Performed By: #### C MP, CRP #### [facility] [address] [address] [address] Leni Hamlin Glucose [Mass/Vol] 205 mg/dL Critically high 74-[address] [facility] Comment on above: Performed By: #### C MP, CRP #### [facility] [address] [place] [address] Dr. Leni Hamlni Potassium [Moles/Vol] 4.4 mmol/L Normal 3.5-5.1 [facility] Comment on above: Performed By: #### C MP, CRP #### [facility] [address] [place] [address] Dr. Leni Hamlin Sodium [Moles/Vol] 138 mmol/L Normal 136-145 [facility] Comment on above: Performed By: #### C MP, CRP #### [facility] [address] [place] [address] Dr. Leni Hamlin Urea nitrogen [Mass/Vol] 29.0 mg/dL Critically high 7.0-18.0 [facility] Comment on above: Performed By: #### C MP, CRP #### [facility] [address] [place] [address] Dr. Leni Hamlin Urea nitrogen/Creatinine [Mass ratio] 21.3 mg/mg Normal [facility] Comment on above: Performed By: #### C MP, CRP #### [facility] [address] [place] [address] Dr. Leni Hamlin BNPon 03-14-2022 Natriuretic peptide B (Bld) [Mass/Vol] 337.0 pg/mL Normal <=900.0 [facility] Comment on above: Performed By: #### C RP #### [facility] [address] [place] [address] Dr. Leni Hamlin CBC AUTO DIFFon 03-14-2022 BASO # 0.0 103/ul Normal 0.0-0.1 [facility] Comment on above: Performed By: #### C MP, CRP #### [facility] [address] [place] [address] Dr. Leni Hamlin Basophils/100 WBC (Bld) 0.2 % Normal 0.2-2.0 [facility] Comment on above: Performed By: #### C MP, CRP #### [facility] [address] [place] [address] Dr. Leni Hamlin EO # 0.0 103/ul Normal 0.0-0.7 [facility] Comment on above: Performed By: #### C MP, CRP #### [facility] [address] [place] [address] Dr. Leni Hamlin Eosinophils/100 WBC (Bld) 0.0 % Critically low 0.9-7.0 [facility] Comment on above: Performed By: #### C MP, CRP #### [facility] [address] [place] [address] Dr. Leni Hamlin Erythrocyte distribution width (RBC) [Ratio] 13.6 % Normal 11.0-15.0 [facility] Comment on above: Performed By: #### C MP, CRP #### [facility] [address] [place] [address] Dr. Leni Hamlin Hematocrit (Bld) [Volume fraction] 47.8 % Normal 42.0-54.0 [facility] Comment on above: Performed By: #### C MP, CRP #### [facility] [address] [place] [address] Dr. Leni Hamlin Hemoglobin (Bld) [Mass/Vol] 14.6 g/dL Normal 14.0-18.0 [facility] Comment on above: Performed By: #### C MP, CRP #### [facility] [address] [address] [address] eLni Hamlin IG # 0.22 10e3/ul Critically high 0.00-0.03 [facility] Comment on above: Performed By: #### C MP, CRP #### [facility] [address] [address] [address] Leni Hamlin IG % 1.3 % Critically high 0.0-0.5 [facility] Comment on above: Performed By: #### C MP, CRP #### [facility] [address] [address] [address] Leni Hamlin LYMPH # 0.5 103/ul Critically low 1.2-3.8 [facility] Comment on above: Performed By: #### C MP, CRP #### [facility] [address] [place] [address] Dr. Leni Hamlin Lymphocytes/100 WBC (Bld) 2.9 % Critically low 20.5-60.0 [facility] Comment on above: Performed By: #### C MP, CRP #### [facility] [address] [address] [address] Leni Hamlin MANUAL DIFF REQ NO Normal [facility] Comment on above: Performed By: #### C MP, CRP #### [facility] [address] [address] [address] Leni Hamlin MCH (RBC) [Entitic mass] 29.4 pg Normal 25.9-34.0 [facility] Comment on above: Performed By: #### C MP, CRP #### [facility] [address] [address] [address] Leni Hamlin MCHC (RBC) [Mass/Vol] 30.5 g/dL Normal 29.9-35.2 [facility] Comment on above: Performed By: #### C MP, CRP #### [facility] [address] [address] [address] Leni Hamlin MCV (RBC) [Entitic vol] 96.4 fL Critically high 80.0-94.0 [facility] Comment on above: Performed By: #### C MP, CRP #### [facility] [address] [address] [address] Leni Hamlin MONO # 1.1 103/ul Critically high 0.3-0.8 [facility] Comment on above: Performed By: #### C MP, CRP #### [facility] [address] [address] [address] Leni Hamlin Monocytes/100 WBC (Bld) 6.4 % Normal 1.7-12.0 [facility] Comment on above: Performed By: #### C MP, CRP #### [facility] [address] [address] [address] Leni Hamlin NEUT # 15.2 103/ul Critically high 1.4-6.5 [facility] Comment on above: Performed By: #### C MP, CRP #### [facility] [address] [address] [address] Leni Hamlin Neutrophils/100 WBC (Bld) 89.2 % Critically high 43.0-75.0 [facility] Comment on above: Performed By: #### C MP, CRP #### [facility] [address] [address] [address] Leni Hamlin Platelet mean volume (Bld) [Entitic vol] 10.4 fL Normal 9.5-13.5 [facility] Comment on above: Performed By: #### C MP, CRP #### [facility] [address] [address] [address] Leni Hamlin PLT 167 103/ul Normal 150-450 [facility] Comment on above: Performed By: #### C MP, CRP #### [facility] [address] [address] [address] Leni Hamlin RBC 4.96 106/ul Normal 4.70-6.10 [facility] Comment on above: Performed By: #### C MP, CRP #### [facility] [address] [place] [address] Dr. Leni Hamlin WBC 17.0 103/ul Critically high 4.0-11.0 [facility] Comment on above: Performed By: #### C MP, CRP #### [facility] [address] [place] [address] Dr. Leni Hamlin PROF CHEM 8 (BAS METB)on Anion gap [Moles/Vol] 7.0 mmol/L Normal [facility] Comment on above: Performed By: #### C VDAGS #### [facility] [address] [place] [address] Dr. Leni Hamlin Calcium [Mass/Vol] 8.3 mg/dL Critically low 8.5-10.1 [facility] Comment on above: Performed By: #### C VDAGS #### [facility] [address] [place] [address] Dr. Leni Hamlin Chloride [Moles/Vol] 102 mmol/L Normal 98-107 [facility] Comment on above: Performed By: #### C VDAGS #### [facility] [address] [place] [address] Dr. Leni Hamlin CO2 [Moles/Vol] 29.6 mmol/L Normal 21.0-32.0 [facility] Comment on above: Performed By: #### C VDAGS #### [facility] [address] [place] [address] Dr. Leni Hamlin Creatinine [Mass/Vol] 1.48 mg/dL Critically high 0.70-1.30 [facility] Comment on above: Performed By: #### C VDAGS #### [facility] [address] [place] [address] Dr. Leni Hamlin EGFR-AF IVORIAN 56 mL/min/1.73m2 Critically low >=60 [facility] Comment on above: Performed By: #### C VDAGS #### [facility] [address] [place] [address] Dr. Leni Hamlin EGFR-NON AF IVORIAN 47 mL/min/1.73m2 Critically low >=60 [facility] Comment on above: Performed By: #### C VDAGS #### [facility] [address] [place] [address] Dr. Leni Hamlin Glucose [Mass/Vol] 168 mg/dL Critically high 74-[address] [facility] Comment on above: Performed By: #### C VDAGS #### [facility] [address] [place] [address] Dr. Leni Hamlin Potassium [Moles/Vol] 4.6 mmol/L Normal 3.5-5.1 [facility] Comment on above: Performed By: #### C VDAGS #### [facility] [address] [place] [address] Dr. Leni Hamlin Sodium [Moles/Vol] 134 mmol/L Critically low 136-145 Th [facility] Comment on above: Performed By: #### C VDAGS #### [facility] [address] [place] [address] Dr. Leni Hamlin Urea nitrogen [Mass/Vol] 29.0 mg/dL Critically high 7.0-18.0 [facility] Comment on above: Performed By: #### C VDAGS #### [facility] [address] [place] [address] Dr. Leni Hamlin Urea nitrogen/Creatinine [Mass ratio] 19.6 mg/mg Normal [facility] Comment on above: Performed By: #### C VDAGS #### [facility] [address] [place] [address] Dr. Leni Hamlin BNPon 03-13-2022 Natriuretic peptide B (Bld) [Mass/Vol] 501.0 pg/mL Normal <=900.0 [facility] Comment on above: Performed By: #### B MP, BNP #### [facility] [address] [place] [address] Dr. Leni Hamlin CBC W MANUAL DIFFon 03-13-20 ATYPICAL LYMPH # Normal [facility] Comment on above: Performed By: #### C VDAGS #### [facility] [address] [place] [address] Dr. Leni Hamlin ATYPICAL LYMPH % Normal [facility] Comment on above: Performed By: #### C VDAGS #### [facility] [address] [place] [address] Dr. Leni Hamlin BAND # 2.1 103/ul Critically high 0.0-0.3 [facility] Comment on above: Performed By: #### C VDAGS #### [facility] [address] [place] [address] Dr. Leni Hamlin BAND % 12 % Critically high 0-5 [facility] Comment on above: Performed By: #### C VDAGS #### [facility] [address] [place] [address] Dr. Leni Hamlin BASOM # 0.00 103/ul Normal 0.00-0.10 [facility] Comment on above: Performed By: #### C VDAGS #### [facility] [address] [place] [address] Dr. Leni Hamlin BASOM % 0.0 % Critically low 0.2-2.0 [facility] Comment on above: Performed By: #### C VDAGS #### [facility] [address] [place] [address] Dr. Leni Hamlin BLAST # Normal [facility] Comment on above: Performed By: #### C VDAGS #### [facility] [address] [place] [address] Dr. Leni Hamlin BLAST % Normal [facility] Comment on above: Performed By: #### C VDAGS #### [facility] [address] [place] [address] Dr. Leni Hamlin CORRECTED WBC Normal 4.0-11.0 [facility] Comment on above: Performed By: #### C VDAGS #### [facility] [address] [place] [address] Dr. Leni Hamlin EOS # 0.00 103/ul Normal 0.00-0.70 [facility] Comment on above: Performed By: #### C VDAGS #### [facility] [address] [place] [address] Dr. Leni Hamlin EOS% 0.0 % Critically low 0.9-7.0 [facility] Comment on above: Performed By: #### C VDAGS #### [facility] [address] [address] [address] Leni Hamlin HCT 51.2 % Normal 42.0-54.0 [facility] Comment on above: Performed By: #### C VDAGS #### [facility] [address] [address] [address] Leni Hamlin HGB 15.4 g/dl Normal 14.0-18.0 [facility] Comment on above: Performed By: #### C VDAGS #### [facility] [address] [address] [address] Leni Hamlin LYMPHM # 0.52 103/ul Critically low 1.20-3.80 [facility] Comment on above: Performed By: #### C VDAGS #### [facility] [address] [place] [address] Dr. Leni Hamlin LYMPHM% 3.0 % Critically low 20.5-60.0 [facility] Comment on above: Performed By: #### C VDAGS #### [facility] [address] [place] [address] Dr. Leni Hamlin MCH 29.6 pg Normal 25.9-34.0 [facility] Comment on above: Performed By: #### C VDAGS #### [facility] [address] [place] [address] Dr. Leni Hamlin MCHC 30.1 g/dl Normal 29.9-35.2 [facility] Comment on above: Performed By: #### C VDAGS #### [facility] [address] [address] [address] Leni Hamlin MCV 98.5 fL Critically high 80.0-94.0 [facility] Comment on above: Performed By: #### C VDAGS #### [facility] [address] [place] [address] Dr. Leni Hamlin METAMYELOCYTE # Normal [facility] Comment on above: Performed By: #### C VDAGS #### [facility] [address] [place] [address] Dr. Leni Hamlin METAMYELOCYTE % Normal [facility] Comment on above: Performed By: #### C VDAGS #### [facility] [address] [address] [address] Leni Hamlin MONOM# 0.86 103/ul Critically high 0.30-0.80 [facility] Comment on above: Performed By: #### C VDAGS #### [facility] [address] [address] [address] Leni Hamlin MONOM% 5.0 % Normal 1.7-12.0 [facility] Comment on above: Performed By: #### C VDAGS #### [facility] [address] [address] [address] Leni Hamlin MPV 10.0 fL Normal 9.5-13.5 [facility] Comment on above: Performed By: #### C VDAGS #### [facility] [address] [place] [address] Dr. Leni Hamlin MYELOCYTE # Normal [facility] Comment on above: Performed By: #### C VDAGS #### [facility] [address] [address] [address] Leni Hamlin MYELOCYTE % Normal [facility] Comment on above: Performed By: #### C VDAGS #### [facility] [address] [place] [address] Dr. Leni Hamlin NRBC Normal [facility] Comment on above: Performed By: #### C VDAGS #### [facility] [address] [place] [address] Dr. Leni Hamlin PLT 161 103/ul Normal 150-450 [facility] Comment on above: Performed By: #### C VDAGS #### [facility] [address] [address] [address] Leni Hamlin RBC 5.20 106/ul Normal 4.70-6.10 [facility] Comment on above: Performed By: #### C VDAGS #### [facility] [address] [address] [address] Leni Hamlin RDW 13.5 % Normal 11.0-15.0 [facility] Comment on above: Performed By: #### C VDAGS #### [facility] [address] [address] [address] Leni Hamlin SEG # 13.76 103/ul Critically high 1.40-6.50 [facility] Comment on above: Performed By: #### C VDAGS #### [facility] [address] [address] [address] Leni Hamlin SEG % 80.0 % Critically high 43.0-75.0 [facility] Comment on above: Performed By: #### C VDAGS #### [facility] [address] [address] [address] Leni Hamlin WBC 17.2 103/ul Critically high 4.0-11.0 [facility] Comment on above: Performed By: #### C VDAGS #### [facility] [address] [place] [address] Dr. Leni Hamlin PROF CHEM 8 (BAS METB)on Anion gap [Moles/Vol] 12.5 mmol/L Normal [facility] Comment on above: Performed By: #### C VDAGS #### [facility] [address] [place] [address] Dr. Leni Hamlin Calcium [Mass/Vol] 8.4 mg/dL Critically low 8.5-10.1 [facility] Comment on above: Performed By: #### C VDAGS #### [facility] [address] [address] [address] Leni Hamlin Chloride [Moles/Vol] 100 mmol/L Normal 98-107 [facility] Comment on above: Performed By: #### C VDAGS #### [facility] [address] [address] [address] Leni Hamlin CO2 [Moles/Vol] 26.7 mmol/L Normal 21.0-32.0 [facility] Comment on above: Performed By: #### C VDAGS #### [facility] [address] [address] [address] Leni Hamlin Creatinine [Mass/Vol] 1.87 mg/dL Critically high 0.70-1.30 [facility] Comment on above: Performed By: #### C VDAGS #### [facility] [address] [place] [address] Dr. Leni Hamlin EGFR-AF IVORIAN 43 mL/min/1.73m2 Critically low >=60 [facility] Comment on above: Performed By: #### C VDAGS #### [facility] [address] [place] [address] Dr. Leni Hamlin EGFR-NON AF IVORIAN 36 mL/min/1.73m2 Critically low >=60 [facility] Comment on above: Performed By: #### C VDAGS #### [facility] [address] [place] [address] Dr. Leni Hamlin Glucose [Mass/Vol] 222 mg/dL Critically high 74-[address] [facility] Comment on above: Performed By: #### C VDAGS #### [facility] [address] [place] [address] Dr. Leni Hamlin Potassium [Moles/Vol] 4.2 mmol/L Normal 3.5-5.1 [facility] Comment on above: Performed By: #### C VDAGS #### [facility] [address] [place] [address] Dr. Leni Hamlin Sodium [Moles/Vol] 135 mmol/L Critically low 136-145 Th [facility] Comment on above: Performed By: #### C VDAGS #### [facility] [address] [place] [address] Dr. Leni Hamlin Urea nitrogen [Mass/Vol] 25.0 mg/dL Critically high 7.0-18.0 [facility] Comment on above: Performed By: #### C VDAGS #### [facility] [address] [place] [address] Dr. Leni Hamlin Urea nitrogen/Creatinine [Mass ratio] 13.4 mg/mg Normal [facility] Comment on above: Performed By: #### C VDAGS #### [facility] [address] [place] [address] Dr. Leni Hamlin Anion gap [Moles/Vol] 10.7 mmol/L Normal [facility] Comment on above: Performed By: #### B MP, BNP #### [facility] [address] [place] [address] Dr. Leni Hamlin Calcium [Mass/Vol] 8.2 mg/dL Critically low 8.5-10.1 Th [facility] Comment on above: Performed By: #### B MP, BNP #### [facility] [address] [place] [address] Dr. Leni Hamlin Chloride [Moles/Vol] 101 mmol/L Normal 98-107 [facility] Comment on above: Performed By: #### B MP, BNP #### [facility] [address] [place] [address] Dr. Leni Hamlin CO2 [Moles/Vol] 30.0 mmol/L Normal 21.0-32.0 [facility] Comment on above: Performed By: #### B MP, BNP #### [facility] [address] [place] [address] Dr. Leni Hamlin Creatinine [Mass/Vol] 1.49 mg/dL Critically high 0.70-1.30 [facility] Comment on above: Performed By: #### B MP, BNP #### [facility] [address] [place] [address] Dr. Leni Hamlin EGFR-AF IVORIAN 56 mL/min/1.73m2 Critically low >=60 [facility] Comment on above: Performed By: #### B MP, BNP #### [facility] [address] [place] [address] Dr. Leni Hamlin EGFR-NON AF IVORIAN 46 mL/min/1.73m2 Critically low >=60 [facility] Comment on above: Performed By: #### B MP, BNP #### [facility] [address] [place] [address] Dr. Leni Hamlin Glucose [Mass/Vol] 158 mg/dL Critically high 74-[address] [facility] Comment on above: Performed By: #### B MP, BNP #### [facility] [address] [place] [address] Dr. Leni Hamlin Potassium [Moles/Vol] 5.7 mmol/L Critically high 3.5-5.1 [facility] Comment on above: Performed By: #### B MP, BNP #### [facility] [address] [place] [address] Dr. Leni Hamlin Sodium [Moles/Vol] 136 mmol/L Normal 136-145 [facility] Comment on above: Performed By: #### B MP, BNP #### [facility] [address] [place] [address] Dr. Leni Hamlin Urea nitrogen [Mass/Vol] 19.0 mg/dL Critically high 7.0-18.0 [facility] Comment on above: Performed By: #### B MP, BNP #### [facility] [address] [place] [address] Dr. Leni Hamlin Urea nitrogen/Creatinine [Mass ratio] 12.8 mg/mg Normal [facility] Comment on above: Performed By: #### B MP, BNP #### [facility] [address] [place] [address] Dr. Leni Hamlin BNPon 03-12-2022 Natriuretic peptide B (Bld) [Mass/Vol] 405.0 pg/mL Normal <=900.0 [facility] Comment on above: Performed By: #### B MP, BNP #### [facility] [address] [place] [address] Dr. Leni Hamlin CBC AUTO DIFFon 03-12-2022 BASO # 0.1 103/ul Normal 0.0-0.1 [facility] Comment on above: Performed By: #### C BC #### [facility] [address] [place] [address] Dr. Leni Hamlin Basophils/100 WBC (Bld) 0.3 % Normal 0.2-2.0 [facility] Comment on above: Performed By: #### C BC #### [facility] [address] [place] [address] Dr. Leni Hamlin EO # 0.0 103/ul Normal 0.0-0.7 [facility] Comment on above: Performed By: #### C BC #### [facility] [address] [address] [address] Leni Hamlin Eosinophils/100 WBC (Bld) 0.1 % Critically low 0.9-7.0 [facility] Comment on above: Performed By: #### C BC #### [facility] [address] [address] [address] Leni Hamlin Erythrocyte distribution width (RBC) [Ratio] 13.3 % Normal 11.0-15.0 [facility] Comment on above: Performed By: #### C BC #### [facility] [address] [address] [address] Leni Hamlin Hematocrit (Bld) [Volume fraction] 52.2 % Normal 42.0-54.0 [facility] Comment on above: Performed By: #### C BC #### [facility] [address] [place] [address] Dr. Leni Hamlin Hemoglobin (Bld) [Mass/Vol] 16.5 g/dL Normal 14.0-18.0 [facility] Comment on above: Performed By: #### C BC #### [facility] [address] [place] [address] Dr. Leni Hamlin IG # 0.19 10e3/ul Critically high 0.00-0.03 [facility] Comment on above: Performed By: #### C BC #### [facility] [address] [address] [address] Leni Hamlin IG % 1.0 % Critically high 0.0-0.5 [facility] Comment on above: Performed By: #### C BC #### [facility] [address] [address] [address] Leni Hamlin LYMPH # 0.8 103/ul Critically low 1.2-3.8 [facility] Comment on above: Performed By: #### C BC #### [facility] [address] [place] [address] Dr. Leni Hamlin Lymphocytes/100 WBC (Bld) 3.8 % Critically low 20.5-60.0 [facility] Comment on above: Performed By: #### C BC #### [facility] [address] [place] [address] Dr. Leni Hamlin MANUAL DIFF REQ NO Normal [facility] Comment on above: Performed By: #### C BC #### [facility] [address] [place] [address] Dr. Leni Hamlin MCH (RBC) [Entitic mass] 29.6 pg Normal 25.9-34.0 [facility] Comment on above: Performed By: #### C BC #### [facility] [address] [place] [address] Dr. Leni Hamlin MCHC (RBC) [Mass/Vol] 31.6 g/dL Normal 29.9-35.2 [facility] Comment on above: Performed By: #### C BC #### [facility] [address] [place] [address] Dr. Leni Hamlin MCV (RBC) [Entitic vol] 93.7 fL Normal 80.0-94.0 [facility] Comment on above: Performed By: #### C BC #### [facility] [address] [place] [address] Dr. Leni Hamlin MONO # 1.6 103/ul Critically high 0.3-0.8 [facility] Comment on above: Performed By: #### C BC #### [facility] [address] [place] [address] Dr. Leni Hamlin Monocytes/100 WBC (Bld) 8.3 % Normal 1.7-12.0 [facility] Comment on above: Performed By: #### C BC #### [facility] [address] [place] [address] Dr. Leni Hamlin NEUT # 17.0 103/ul Critically high 1.4-6.5 [facility] Comment on above: Performed By: #### C BC #### [facility] [address] [place] [address] Dr. Leni Hamlin Neutrophils/100 WBC (Bld) 86.5 % Critically high 43.0-75.0 [facility] Comment on above: Performed By: #### C BC #### [facility] [address] [place], [place] [address] Dr. Leni Hamlin Platelet mean volume (Bld) [Entitic vol] 10.0 fL Normal 9.5-13.5 [facility] Comment on above: Performed By: #### C BC #### [facility] [address] [place] [address] [address] Leni Hamlin PLT 194 103/ul Normal 150-450 [facility] Comment on above: Performed By: #### C BC #### [facility] [address] [address] [address] Leni Hamlin RBC 5.57 106/ul Normal 4.70-6.10 [facility] Comment on above: Performed By: #### C BC #### [facility] [address] [address] [address] Leni Hamlin WBC 19.7 103/ul Critically high 4.0-11.0 [facility] Comment on above: Performed By: #### C BC #### [facility] [address] [place] [address] CSPINE WO CONon [...] CIERA HERNÁNDEZ Date: 2022-03-12 13:42 Normal The [facility] CT HEAD WO CONon 03-12-2022 CT [...] SUSAN KC Date: 2022-03-12 13:20 Normal [facility] CTA CHEST WO W CONon 022 [...] infiltrates/pneumonia rather than atelectasis. Electronically authenticated by: CIERAJOLLY HERNÁNDEZ Date: 2022-03-12 14:46 Normal [facility] CULTURE BLOODon 03-12-2022 Microscopic examination of blood, culture Culture Observations: NO GROWTH AT 5 DAYS. Normal [facility] Comment on above: Performed By: #### C MP, CRP #### [facility] [address] [address] [address] Leni Hamlin Microscopic examination of blood, culture Culture Observations: NO GROWTH AT 5 DAYS. Normal [facility] Comment on above: Performed By: #### C MP, CRP #### [facility] [address] [address] [address] Leni Hamlin Covid-19 PCR ([facility])on SARS-CoV-2 (COVID-19) RNA VENESSA+probe Ql (Unsp spec) Not detected Normal NOT DETECTED [facility] Comment on above: Result Comment: When diagnostic testing is negative, the possibility of a false negative should be considered in the context of a patient's recent exposures and the presence of clinical signs and symptoms consistent with SARS-CoV-2. This test is not yet approved or cleared by the [place] Food and Drug Administration (FDA). This test was developed by [employer], [place], [place]. The performance characteristics of this test were validated by The [facility]. The results are not intended to be used as the sole means for clinical diagnosis or patient management decisions. The [facility] is authorized under Clinical Laboratory Improvement [...] for this test is supported by the [place] of Health and Human Service's declaration that [...] used). Performed By: #### C RP #### [facility] [address] [place] [address] Dr. Leni Hamlin D-DIMERon 03-12-2022 D-DIMER 6.00 mg/L FEU Critically high 0.19-0.50 [facility] Comment on above: Performed By: #### B MP, BNP #### [facility] [address] [place] [address] Dr. Leni Hamlin D-DIMER COMMENTS SEE BELOW Normal [facility] Comment on above: Result Comment: Incr eases [...] Performed By: #### B MP, BNP #### [facility] [address] [place] [address] Dr. Leni Hamlin ER URINE PROFILEon 2 Bilirubin Ql (U) Negative Normal NEGATIVE [facility] Comment on above: Performed By: #### C RP #### [facility] [address] [place] [address] Dr. Leni Hamlin Clarity (U) CLEAR Normal CLEAR [facility] Comment on above: Performed By: #### C RP #### [facility] [address] [place] [address] Dr. Leni Hamlin Color (U) YELLOW Normal YELLOW [facility] Comment on above: Performed By: #### C RP #### [facility] [address] [place] [address] Dr. Leni ELLIS A micrscopic examination will be performed if indicated. Normal [facility] Comment on above: Performed By: #### C RP #### [facility] [address] [place] [address] Dr. Leni Hamlin Glucose Ql (U) Negative Normal NEGATIVE [facility] Comment on above: Performed By: #### C RP #### [facility] [address] [place] [address] Dr. Leni Hamlin Hemoglobin Ql (U) SMALL Abnormal NEGATIVE [facility] Comment on above: Performed By: #### C RP #### [facility] [address] [place] [address] Dr. Leni Hamlin Ketones Ql (U) Negative Normal NEGATIVE [facility] Comment on above: Performed By: #### C RP #### [facility] [address] [place] [address] Dr. Leni Hamlin LEUKOCYTES Negative Normal NEGATIVE [facility] Comment on above: Performed By: #### C RP #### [facility] [address] [place] [address] Dr. Leni Hamlin Nitrite Ql (U) Negative Normal NEGATIVE [facility] Comment on above: Performed By: #### C RP #### [facility] [address] [place] [address] Dr. Leni Hamlin pH (U) 5.5 [pH] Normal 5-9 [facility] Comment on above: Performed By: #### C RP #### [facility] [address] [place] [address] Dr. Leni Hamlin SPEC GRAVITY <=1.005 Abnormal 1.005-<=1.025 [facility] Comment on above: Performed By: #### C RP #### [facility] [address] [place] [address] Dr. Leni Hamlin UA PROTEIN >300 Abnormal NEGATIVE/ TRACE [facility] Comment on above: Performed By: #### C RP #### [facility] [address] [place] [address] Dr. Leni Hamlin UR MICRO IND INDICATED Normal [facility] Comment on above: Performed By: #### C RP #### [facility] [address] [place] [address] Dr. Leni Hamlin Urobilinogen Qn (U) 0.2 {Stacy'U}/dL Normal 0.2 - 1. 0 [facility] Comment on above: Performed By: #### C RP #### [facility] [address] [place] [address] Dr. Leni Hamlin LACTATE/LACTIC ACIDon 2021 Lactate [Moles/Vol] 0.5 mmol/L Normal 0.4-2.0 [facility] Comment on above: Performed By: #### B MP, BNP #### [facility] [address] [place] [address] Dr. Leni Hamlin Lactate [Moles/Vol] 1.6 mmol/L Normal 0.4-2.0 [facility] Comment on above: Performed By: #### L ACT #### [facility] [address] [place] [address] Dr. Leni Hamlin PROF 14(COMP METB)on 022 Albumin [Mass/Vol] 3.1 g/dL Critically low 3.4-5.0 [facility] Comment on above: Performed By: #### B MP, BNP #### [facility] [address] [place] [address] Dr. Leni Hamlin Albumin/Globulin [Mass ratio] 0.8 {ratio} [facility] Comment on above: Performed By: #### B MP, BNP #### [facility] [address] [place] [address] Dr. Leni Hamlin ALP [Catalytic activity/Vol] 52 U/L Normal 46-116 [facility] Comment on above: Performed By: #### B MP, BNP #### [facility] [address] [place] [address] Dr. Leni Hamlin ALT [Catalytic activity/Vol] 27 U/L Normal 16-63 [facility] Comment on above: Performed By: #### B MP, BNP #### [facility] [address] [place] [address] Dr. Leni Hamlin Anion gap [Moles/Vol] 12.9 mmol/L Normal [facility] Comment on above: Performed By: #### B MP, BNP #### [facility] [address] [place] [address] Dr. Leni Hamlin AST [Catalytic activity/Vol] 14 U/L Critically low 15-37 [facility] Comment on above: Performed By: #### B MP, BNP #### [facility] [address] [place] [address] Dr. Leni Hamlin Bilirubin [Mass/Vol] 1.2 mg/dL Critically high 0.2-1.0 [facility] Comment on above: Performed By: #### B MP, BNP #### [facility] [address] [place] [address] Dr. Leni Hamlin Calcium [Mass/Vol] 8.2 mg/dL Critically low 8.5-10.1 [facility] Comment on above: Performed By: #### B MP, BNP #### [facility] [address] [place] [address] Dr. Leni Hamlin Chloride [Moles/Vol] 99 mmol/L Normal 98-107 [facility] Comment on above: Performed By: #### B MP, BNP #### [facility] [address] [place] [address] Dr. Leni Hamlin CO2 [Moles/Vol] 28.4 mmol/L Normal 21.0-32.0 [facility] Comment on above: Performed By: #### B MP, BNP #### [facility] [address] [place] [address] Dr. Leni Hamlin Creatinine [Mass/Vol] 1.44 mg/dL Critically high 0.70-1.30 [facility] Comment on above: Performed By: #### B MP, BNP #### [facility] [address] [place] [address] Dr. Leni Hamlin EGFR-AF IVORIAN 58 mL/min/1.73m2 Critically low >=60 [facility] Comment on above: Performed By: #### B MP, BNP #### [facility] [address] [place] [address] Dr. Leni Hamlin EGFR-NON AF IVORIAN 48 mL/min/1.73m2 Critically low >=60 [facility] Comment on above: Performed By: #### B MP, BNP #### [facility] [address] [address] [address] Leni Hamlin Globulin (S) [Mass/Vol] 3.8 g/dL Normal [facility] Comment on above: Performed By: #### B MP, BNP #### [facility] [address] [place] [address] Dr. Leni Hamlin Glucose [Mass/Vol] 137 mg/dL Critically high 74-[address] [facility] Comment on above: Performed By: #### B MP, BNP #### [facility] [address] [place] [address] Dr. Leni Hamlin Potassium [Moles/Vol] 4.3 mmol/L Normal 3.5-5.1 [facility] Comment on above: Performed By: #### B MP, BNP #### [facility] [address] [place] [address] Dr. Leni Hamlin Protein [Mass/Vol] 6.9 g/dL Normal 6.1-8.[address] [facility] Comment on above: Performed By: #### B MP, BNP #### [facility] [address] [place] [address] Dr. Leni Hamlin Sodium [Moles/Vol] 136 mmol/L Normal 136-145 [facility] Comment on above: Performed By: #### B MP, BNP #### [facility] [address] [place] [address] Dr. Leni Hamlin Urea nitrogen [Mass/Vol] 15.0 mg/dL Normal 7.0-18.0 [facility] Comment on above: Performed By: #### B MP, BNP #### [facility] [address] [place] [address] Dr. Leni Hamlin Urea nitrogen/Creatinine [Mass ratio] 10.4 mg/mg Normal [facility] Comment on above: Performed By: #### B MP, BNP #### [facility] [address] [place] [address] Dr. Leni Hamlin PROTIMEon 03-12-2022 INR Coag (PPP) [Relative time] 1.07 {INR} Normal [facility] Comment on above: Performed By: #### B MP, BNP #### [facility] [address] [place] [address] Dr. Leni Hamlin INR GUIDELINES SEE BELOW Normal [facility] Comment on above: Result Comment: WAQAS RED INR: 2.0 - 3.0 CONDITIONS NOT LISTED BELOW 2.5 - 3.5 FOR PROSTHETIC HEART VALVE REPLACEMENT 2.5 - 3.5 RECURRENT THROMBOSIS Performed By: #### B MP, BNP #### [facility] [address] [place] [address] Dr. Leni Hamlin PT Coag (PPP) [Time] 11.5 s Normal 9.0-11.6 [facility] Comment on above: Performed By: #### B MP, BNP #### [facility] [address] [place] [address] Dr. Leni Hamlin TROPONIN, HIGH SENSITIVITYon 03-12-2022 HSTROP 12.8 pg/mL Normal 4.0-76.1 [facility] Comment on above: Result Comment: CUT- OFF POINTS HAVE BEEN ESTABLISHED BASED ON THE FOURTH UNIVERSAL DEFINITIONS OF MYOCARDIAL INFARCTION. THE UPPER REFERENCE LIMIT (URL) OF TROPONIN, DEFINED THE 99TH PERCENTILE OF cTnI DISTRIBUTION IN A REFERENCE POPULATION, HAS BEEN CONFIRMED THE DECISION THRESHOLD FOR [place] DIAGNOSIS. Performed By: #### B MP, BNP #### [facility] [address] [place] [address] Dr. Leni Hamlin URINE MICROSCOPIC ONLYon BACTERIA NONE SEEN Normal NONE SEEN [facility] Comment on above: Performed By: #### C RP #### [facility] [address] [place] [address] Dr. Leni Hamlin Bacteria identified Cx Nom (U) NOT INDICATED Normal [facility] Comment on above: Performed By: #### C RP #### [facility] [address] [place] [address] Dr. Leni Hamlin CAST NONE SEEN Normal NONE SEEN [facility] Comment on above: Performed By: #### C RP #### [facility] [address] [place] [address] Dr. Leni Hamlin Crystals LM Nom (Urine sed) NONE SEEN Normal NONE SEEN [facility] Comment on above: Performed By: #### C RP #### [facility] [address] [place] [address] Dr. Leni Hamlin Epithelial cells LM Ql (Urine sed) NONE SEEN Normal NONE SEEN /RARE [facility] Comment on above: Performed By: #### C RP #### [facility] [address] [place] [address] Dr. Leni Hamlin MUCOUS MODERATE Abnormal NONE SEEN [facility] Comment on above: Performed By: #### C RP #### [facility] [address] [place] [address] Dr. Leni Hamlin RBC 2-5 Abnormal 0-2 [facility] Comment on above: Performed By: #### C RP #### [facility] [address] [place] [address] Dr. Leni Hamlin WBC NONE SEEN Normal NONE SEEN [facility] Comment on above: Performed By: #### C RP #### [facility] [address] [place] [address] Dr. Leni Hamlin XR RIBS RT PA [...] CIERA HERNÁNDEZ Date: 2022-03-12 13:35 Normal [facility] Covid-19 PCR ([facility])on 01-09 SARS-CoV-2 (COVID-19) RNA VENESSA+probe Ql (Unsp spec) Not detected Normal NOT DETECTED [facility] Comment on above: Result Comment: This test is not yet approved or cleared by the [place] FDA. When there are no FDA-approved or cleared tests available, and other criteria are met, FDA can make tests available under an emergency access mechanism called an Emergency Use Authorization (EUA). The EUA for this test is supported by the [place] of Health and Human Service's (HHS's) declaration [...] SARS-CoV-2. Performed By: #### C RP #### [facility] [address] [place] [address] Dr. Leni Hamlin INFLUENZA A AND B [facility] 01-25 [facility] SEE BELOW Normal [facility] Comment on above: Result Comment: Nega tive for Flu A protein angiten. Infection due to Flu A cannot be ruled out. Flu A angiten in the sample may be below the detection limit of the test. Performed By: #### C RP #### [facility] [address] [place] [address] Dr. Len[facility] Ham[facility] SEE BELOW Normal [facility] Comment on above: Result Comment: Nega tive for Flu B protein antigen. Infection due to Flu B cannot be ruled out. Flu B antigen in the sample may be below the detection limit of the test. Performed By: #### C RP #### [facility] [address] [place] [address] Dr. Leni Hamlin INFLUENZA A AG Negative Normal NEGATIVE SEE COMMENT [facility] Comment on above: Performed By: #### C RP #### [facility] [address] [place] [address] Dr. Leni Hamlin INFLUENZA B AG Negative Normal NEGATIVE SEE COMMENT [facility] Comment on above: Performed By: #### C RP #### [facility] [address] [place] [address] Dr. Leni Hamlin INTERNAL CONTROLS Within Normal Limits Normal Wi thin Normal Limits [facility] Comment on above: Performed By: #### C RP #### [facility] [address] [place] [address] Dr. Leni Hamlin COVID-19 Antigenon 2 COVID-19 [...] its performance Cindy Disclaimer characteristic determined by [employer] and Cindy Disclaimer validated at [facility]. This Cindy Disclaimer test has not been [...] is terminated or revoked sooner. PERFORMED BY: [place] [address] PATHOLOGIST CREDENTIALS SPECIALIST ZOHAIB JEWELL M.D. Normal [facility] Comment on above: Performed By: #### C OVID-19 CINDY, SOFIANEG #### [place] [id number] [facility] Cindy Ag Negativeon 12-01-19 22 Cindy Ag Negative Negative Normal Negative [facility] Comment on above: Result Comment: This is a duplicate Cindy SARS Antigen (JENNIFER) result to be used for statistical tracking purpose only. PERFORMED BY: [place] [id number] PATHOLOGIST CREDENTIALS SPECIALIST ZOHAIB JEWELL M.D. Performed By: #### C OVID-19 CINDY, SOFIANEG #### [place] [id number] [facility] Encounters Encounter Date Encounter Type Care Provider Facility Start: 12-30-2023 End: 12-31-2023 ambulatory Urvashi Rawls MD Facility:[facility] Start: 09-16-2023 End: 09-17-2023 ambulatory Urvashi Rawls MD Facility: [facility] Start: 08-27-2023 End: 08-27-2023 ambulatory [facility] Start: 07-09-2023 End: 07-09-2023 ambulatory [facility] Start: 06-24-2023 End: 06-25-2023 ambulatory Urvashi Stitis Facility: [facility] Start: 06-10-2023 End: 06-11-2023 ambulatory Urvashi Stitis Facility: [facility] Start: 05-27-2023 End: 05-28-2023 ambulatory Urvashi Stitis Facility: [facility] Start: 05-13-2023 End: 05-13-2023 ambulatory [facility] Start: 05-08-2023 ambulatory [facility] Start: 04-09-2023 End: 04-09-2023 ambulatory [facility] Start: 03-29-2023 End: 03-30-2023 ambulatory [facility] Start: 03-26-2023 End: 03-27-2023 ambulatory [facility] Start: 03-26-2023 End: 03-26-2023 ambulatory [facility] Start: 03-15-2023 End: 03-16-2023 ambulatory [facility] Start: 02-27-2023 End: 02-28-2023 ambulatory [facility] Start: 01-31-2023 End: 02-01-2023 ambulatory ELLIOT [facility] Start: 01-16-2023 End: 01-16-[address] ELLIOT CHESTER . Facility:[facility] Start: 12-27-[address] ELLIOT CHESTER . Facili ty:[facility] Start: 12-18-2022 End: 12-18-[address] CLIFTON JHAVERI Facility:[facility] Start: 11-07-2022 End: [facility]07[facility]: 10-22-2022 End: 10-22-2022 ambulatory MODESTO BECERRA [facility] Start: 10-01-2022 End: 10-03-2022 Evaluation and management of inpatient DR ELLIOT CHESTER . Facility:[facility] Start: 09-10-2022 End: 09-10-[address] ELLIOT CHESTER . Facility:[facility] Start: 08-24-[address] ELLIOT Kessler Facili ty:[facility] Start: 05-22-2022 End: 05-22-2022 ambulatory GAGANDEEP PAREDES Facility:[facility] Start: 05-21-2022 End: 05-21-2022 ambulatory GAGANDEEP PAREDES Facility:[facility] Start: 04-23-2022 End: 04-23-[address] ELLIOT CHESTER . Facility:[facility] Start: 03-23-2022 End: 03-24-2022 ambulatory MODESTO BECERRA Facility:[facility] Start: 03-22-2022 End: 03-23-2022 ambulatory MODESTO BECERRA Facility:[facility] Start: 03-20-2022 End: 03-21-[address] ELLIOT CHESTER . Facility:[facility] Start: 03-13-2022 End: 03-15-2022 Evaluation and management of inpatient DR ELLIOT CHESTER . Facility:[facility] Start: 01-25-2022 End: 01-25-2022 ambulatory GAGANDEEP PAREDES Facility:[facility] Payers Date Payer Category Payer Medicare 2022 Unknown 1961 Medicare [id number] 1961 Self-pay 1959 Unknown [id number] 1948 Unknown [id number] 2.16.8 [id number] 1948 Unknown [id number] 2.16.84 [id number] 1948 Unknown [id number] 2.16.84 0.1.160036.3.579.2.593 1948 Unknown [id number] 2.16.84 0.1.407751.3.579.2.593 1948 Unknown [id number] 2.16.84 0.1.319400.3.579.2.593 1948 Unknown [id number] 2.16.84 0.1.690996.3.579.2.593 1948 Unknown [id number] 2.16.84 0.1.981779.3.579.2.593 1948 Unknown [id number] 2.16.84 0.1.364907.3.579.2.593 1948 Unknown [id number] 2.16.84 0.1.048298.3.579.2.593 1948 Unknown [id number] 2.16.84 0.1.414741.3.579.2.593 1948 Unknown [id number] 2.16.84 0.1.863207.3.579.2.593 1948 Unknown [id number] 2.16.84 0.1.167075.3.579.2.593 1948 Unknown [id number] 2.16.84 0.1.972977.3.579.2.593 1948 Unknown [id number] 2.16.84 0.1.020085.3.579.2.593 1948 Unknown [id number] 2.16. 840.1.445843.3.579.2.196 1948 Unknown [id number] 2.16. 840.1.865403.3.579.2.196 1948 Unknown [id number] 2.16. 840.1.869343.3.579.2.196 1948 Unknown [id number] 2.16. 840.1.753160.3.579.2.196 1948 Unknown [id number] 2.16. 840.1.316873.3.579.2.196 Clinical Notes 03-23-2022 to 08-27-2023 Note Date [...] $70 [facility] Lipid profile was done in May 2023. Review of Systems Constitutional: Positive for malaise/fatigue. Musculoskeletal: Positive for arthritis, back pain, joint pain, muscle weakness and myalgias. Neurological: Positive for numbness. All other systems reviewed and are negative. [facility] 05-13-2023 Note Patient here c/o LE numbness and pain during ambulation and standing. He had EMG and SAGAR's in March 2023. He sees Dr. Chester this afternoon. Recently saw neurosurgery and vascular surgery at [facility]. Dr. Quinonez started him on low dose aspirin and atorvastatin last week, which he states he has not started yet. He denies chest pain, SOB, and syncope. Review of Systems Constitutional: Positive for malaise/fatigue. Cardiovascular: Positive for claudication and leg swelling. Musculoskeletal: Positive for arthritis, back pain, muscle weakness and myalgias. All other systems reviewed and are negative. [facility] 05-13-2023 Note [place] [facility] Note [facility] Reason for visit: lower extremity claudication [...] was initiated by the patient and conducted [id number] with use of audio-only real time telephone [...] night many times (more content not included)... [facility] 05-08-2023 Note This is a 73-year-ol [...] will see him in about 3 months. [facility] 05-08-2023 Note HPI Brian Oneal is [...] being on aspirin (more content not included)... 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 He undertook some type of decompressive surgery [...] Final Atrial Rate 03/22/2022 76 BPM Final WV Interval 03/22/2022 162 ms Final QRS DURATION 03/22/2022 144 ms Final QT Interval 03/22/2022 392 ms Final QTC CALCULATION(BAZETT) 03/22/2022 441 ms Final P Ruston 03/22/2022 -14 degrees Final R-Ruston 03/22/2022 -20 degrees Final T Wave Ruston 03/22/2022 -6 degrees Final Diagnosis 03/22/2022 Final [...] No definite e (more content not included)... [facility] 03-26-2023 Note Neurosurgery Consult Chief Complaint: Back and leg pain. History of Present Illness: Brian Oneal is a 72 y.o. male who presents in kind referral from Dr. Chester for evaluation of lumbar degenerative disease with back and leg pain. 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 He undertook some type of decompressive surgery [...] Value Ref Range (more content not included)... [facility] 11-12-2022 Note -s/p PPM -no concerns on device check, 45% RA paced, 7% RV paved -no concerns at this time for pacing induced cardiomyopathy [facility] 11-12-2022 Note -this is chronic, he does not want to start a diuretic at this time -discussed pending his results from the echo he will have sent over we may need to start some sort of diuretic such as thiazide, MRA, and any additional medications indicated [facility] 11-12-2022 Note -no concerns on sallie ce check -follow up with device check in 6 months [facility] 11-07-2022 Note Patient here for 6 m o follow up sick sinus syndrome and sinus bradycardia. His device was interrogated in the office 2 weeks ago. He was admitted to [facility] last month for c diff. Feeling much better. Denies chest pain, SOB, and palpitations. Was not able to tolerate cpap machine. Review of Systems Constitutional: Positive for malaise/fatigue. Musculoskeletal: Positive for arthritis, back pain, muscle weakness and myalgias. All other systems reviewed and are negative. [facility] 11-07-2022 Note [place] [facility] Note [facility] Reason for visit: 6 month follow [...] states he recently admitted for c-diff at [facility] after recently being on antibiotics, he [...] was initiated by the patient and conducted [id number] with use of audio-only real time telephone [...] been officially ev (more content not included)... [facility] 03-23-2022 Note EXAM: XR CHEST 2 [...] authenticated by: ALONSO MASON Date: 2022-03-23 12:58 [facility] Summary Purpose Family History No Family [...] section and content) DATE CREATED AUTHOR 01/29/2022 [facility] DATE CREATED AUTHOR AUTHOR'S ORGANIZ ATION 04/23/2022 [facility] DATE CREATED AUTHOR AUTHOR'S ORGANIZ ATION 01/18/2023 [facility] DATE CREATED AUTHOR AUTHOR'S ORGANIZ ATION 08/28/2023 [facility] DATE CREATED AUTHOR AUTHOR'S ORGANIZ ATION 01/10/2024 [facility] FOR RECORDS PERTAINING TO PATIENTS WHO ARE [...] BE BASED ON THE PRIMARY CLINICAL RECORDS. [facility] [employer] [facility]. provides no warranty or guarantee of the accuracy or completeness of information in this document.
--- NOTE | 2024-01-15 14:25 | P.CN_ITS ---
Consult Note: HPI Data of Consult Patient: known to practice within the last 3 years Requesting Physician: Gisele Rodriguez NP Primary Care Provider: Jaron Chester MD Consult Narrative Reason for consult: f/u Narrative: Brian Oneal a pleasant 73 year old male presents for evaluation and management of low back pain. 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 Pain today 5/10 increasing to 8/10, AHMET 16%. Patient finding mild benefit to gabapentin 200mg daytime and 300mg HS. Patient continues to have moderate to severe pain that is radiating in right low back and to right thigh stopping at his knee, increased with activity, standing, walking. Patient recently underwent right L2-3 L5-S1 TFESI with mild relief. Patient continues to have significant pain with activity, walking, and climbing. cc:: CC: Gisele Rodriguez NP Review of Systems 2 ROS0 Status of ROS 10 or more systems reviewed and unremark able except as noted in history and below Musculoskeletal Reports: back pain PFSH PFSH Medical History Low back pain ?M54.50 - Low back pain, unspecified (ICD-10) Glaucoma ?H40.9 - Unspecified glaucoma (ICD-10) H/O prostate cancer ?Z85.46 - Personal history of malignant neoplasm of prostate (ICD-10) Numbness and tingling ?R20.0 - Anesthesia of skin (ICD-10) ?R20.2 - Paresthesia of skin (ICD-10) Former smoker ?Z87.891 - Personal history of nicotine dependence (ICD-10) Irregular heart beat ?I49.9 - Cardiac arrhythmia, unspecified (ICD-10) Hypertension ?I10 - Essential (primary) hypertension (ICD-10) Pacemaker ?Z95.0 - Presence of cardiac pacemaker (ICD-10) Surgical History H/O lumbosacral spine surgery ?Z98.890 - Other specified postprocedural states (ICD-10) History of appendectomy ?Z90.49 - Acquired absence of other specified parts of digestive tract (ICD- 10) Meds Home Medications and Allergies Home Medications Medication Instructions Recorded Confirmed Type amlodipine 5 mg tablet 5 mg PO .QD 05/27/23 12/30/23 History gabapentin 100 mg capsule 100 mg PO .HS 05/27/23 12/30/23 History tizanidine 4 mg tablet 8 mg PO .HS 05/27/23 12/30/23 History Allergies Allergy/AdvReac Type Severity Reaction Status Date / Time Z PACK Allergy Uncoded 12/30/23 09:32 Exam Constitutional Documenting provider has reviewed patient's vital signs: yes Common normals: no apparent distress, oriented x3, healthy appearing, alert and well nourished General appearance: cooperative HENMT Common normals: normocephalic, hearing grossly normal bilaterally and moist oral mucous membranes Head and scalp: normocephalic Eye Common normals: PERRL Pupil: PERRL Neck & C-Spine Common normals: full ROM General: normal visual inspection Chest Common normals: inspection of chest normal Respiratory Common normals: normal respiratory effort, no retractions and no use of accessory muscles Back & Pelvis Thoracic spine/upper back: ROM limited Lumbar spine/lower back: ROM limited, pain with ROM (mild) and straight leg raise negative bilaterally Sacroiliac joints: SI joints normal Other: positive facet loading no radiculopathy on exam sensation intact BLE Back image (male): 2 1. 2. Extremity Common normals: normal to inspection, full ROM, no calf tenderness and no pedal edema Neuro Common normals: oriented x3, CN's II-XII intact bilaterally, moves all extremities, no focal motor deficits, no sensory deficits noted and deep tendon reflexes 2+ bilaterally Sensorium/orientation: alert Motor exam: strength 5/5 throughout and no movement abnormalities noted Psych Common normals: mental status grossly normal, thought process normal, cooperative, affect normal, speech normal and activity/motor behavior normal Speech: normal speech Thought process: normal thought process Results Additional Findings Additional findings: I have checked an OARRS report on this patient today and there are no aberrancies noted in the prescribing history.?? A drug screen was completed and reviewed within the last year, and if there has not been a drug screen completed we ordered one today to monitor higher risk, state monitored pain medication use. As part of providing excellent, safe, comprehensive care, the following was completed at our patient's visit: 1. A medication reconciliation and review to ensure accurate knowledge of current/active medications, including asking our patients to inform us about any [id number] medications or herbal remedies/nutritional supplements/alternative remedies. 2. A review to specifically ensure our patients have had annual screening for: elevated body mass index (BMI), tobacco use, screening for depression, and screening for unhealthy alcohol use. When screening is concerning, patients are provided with education and the specific recommendation to discuss the concerning health issue and treatment options with their primary care provider. Assessment and Plan Assessment and Plan (1) Lumbar spondylosis: Assessment and Plan: The patient has had over 3 months of moderate to severe low back pain with functional impairment and inadequate response to conservative care including NSAIDS (unless there are contraindication such as concurrent blood thinners), multiple oral or topical pain medications, and home exercise program/physical therapy.? Patient has completed >6 weeks of guided home exercise program and/or formal physical therapy program without relief of their symptoms.? I have reviewed the imaging of the lumbar spine and no red flags were identified.? The imaging reveals radiographic findings consistent with lumbar spondylosis We discussed the risks and benefits of the procedure with the patient, and we are NOT planning on using sedation as outlined in the guidelines from Medicare unless there is a documented reason that sedation would be strongly recommended.?? ?The procedure will be completed with fluoroscopic guidance.? (2) Lumbar stenosis with neurogenic claudication: Plan bilateral L2-3 L4-5 facet medial branch block x2 working towards RFA for chronic low back pain unresponsive to PT/HEP and conservative measures consider vertiflex/spinal cord stimulator in the future however patient very active and I do not think he could avoid bending twisting of lifting for recovery periods of either procedure with his current work continue current medications f/u 1 week after injection
== END 2024-01-15 13:34 | disposition home or self-care (01) ==
LOC: PM 13:33
PROVIDERS: PCP Family Medicine; Visit Provider Nurse Practitioner
DX: M47.816 Spondylosis without myelopathy or radiculopathy, lumbar region (principal); M48.062 Spinal stenosis, lumbar region with neurogenic claudication
CPT/HCPCS: G0463

== ENCOUNTER 2024-01-27 10:34 | Day surgery (SDC) | payer MEDICARE, OTHER, SELFPAY ==
--- OUTSIDE RECORDS SUMMARY | 2024-01-27 10:45 | XMS_ITS | CCD ---
Author Name Unknown Address [address] [place] [address] Organization [facility] Care Team Providers Care Front Attendant Name Role Phone MODESTO BECERRA Admitting Unavailable [...] HOY ., DR ZARATE Primary Care Unavailable JIHANEBER, DR CIERA Eric Consulting Unavailable GRECHNY .MARYAM [...] Referring Unavailable FRANCISCOMODESTO MORROW Referring Unavailable HOLLY LERMA Attending Unavailable ALGHOMAJOR VILLAREAL Attending Unavailable ALGMAJOR [...] Azithromycin; Translations: [AZITHROMYCIN] Drug Allergy 2 [facility] Repository (2 sources) Azithromycin Drug Allergy 5 [facility] Repository (1 source) Ciprofloxacin Drug Allergy 3 [facility] Repository (1 source) ALLERGIES NOT ON FILE; Translations: [ALLERGIES NOT ON FILE] Propensity to adverse reactions (disorder) [facility] Repository Problems Active Problems Problem Classification Problem [...] 10-01-2022 Episodic Other aftercare (1 source) Other fpc (current) drug therapy; Translations: [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] Onset: 03-19-2022 Episodic Pneumonia [...] Range Facility Office Visiton 05-13-2023 Follow-up visit [id number] Wayne Oneal 1950 M Date Provider Department Center 05/13/2023 3848[facility] Family History Problem Relation Age of Onset Coronary artery disease Mother Family Status - Relation Status Age at Mother Level of Service:99492 RI OFFICE/OUTPATIENT ESTABLISHED MOD MDM 30-39 MIN Normal [facility] Center Orders Onlyon 05-13-2023 Orders Only [id number] Wayne Oneal A 1950 Date Provider Department Center 05/13/2023 Royal-BRAYAN AU RAMAKRISHNA Lucero Family History Problem Relation Age of Onset Coronary artery disease Mother Family Status - Relation Status Age at Mother [facility] 29on 05-08-2023 29 Addended by: LEANA HENNING on: 05/09/2023 01:46 PM Modules accepted: Orders [facility] Consulton 05-08-2023 Consult [id number] Wayne Oneal A 1950 Date Provider Department Center 05/08/2023 384-JOSE QUINONEZ HVCVASENDO [facility] Family History Problem Relation Age of Onset Coronary artery disease Mother Family Status - Relation Status Age at Mother Level of Service:72640 RI OFFICE/OUTPATIENT NEW MODERATE MDM 45-59 MINUTES Reason for Visit and Comments: New Patient [632] - Numbness in bilateral legs [facility] Follow-Upon 04-09-2023 Follow-Up [id number] Wayne Oneal A 1950 Date Provider Department Center 04/09/2023 [id number] JUAN [facility] [place] Family History Problem Relation Age of Onset Coronary artery disease Mother Family Status - Relation Status Age at Mother Level of Service:57636 RI OFFICE/OUTPATIENT ESTABLISHED LOW MDM 20-29 MIN Reason for Visit and Comments: Follow-up [828949] - follow up s/p SAGAR, XR; When patient bends over it tends to pull his back muscles and when he gets back up he is in pain. Walking a long distance he is in lots of pain. [facility] 36on 04-02-2023 36 Pt was called and scheduled a follow up with Dr. Renee to review results. [facility] 36 Brian is asking fo r an answer to left lower back pain. Had the US done and is not having any relief in his back. [facility] Telephoneon 04-02-2023 Telephone [id number] Wayne Oneal A 1950 Date Provider Department Center 04/02/2023 554-TRACI VAZQUEZ [facility] [place] Family History Problem Relation Age of Onset Coronary artery disease Mother Family Status - Relation Status Age at Mother Normal [facility] Consulton 03-26-2023 Consult [id number] Wayne Oneal 1950 M Date Provider Department Center 03/26/2023 [id number]-RADU RENEE [facility] [place] Family History Problem Relation Age of Onset Coronary artery disease Mother Family Status - Relation Status Age at Mother Level of Service:14130 RI OFFICE/OUTPATIENT NEW MODERATE MDM 45-59 MINUTES Reason for Visit and Comments: Consult [107] - Pt is here for a CO visit for Osteophyte. Normal [facility] MR LUMBAR SPINE W AND WO CON [...] previous results Electronically signed: Asher Tomlinson. Normal [facility] Comment on above: Order Comment: Order in [...] appropriate caregiver. Electronically signed: Renu Han. Normal [facility] Comment on above: Order Comment: Order in [facility] NURSNOTEon 01-31-2023 NURSNOTE Patient tolerated well Normal [facility] NURSNOTE 1325 Patient arrived Biotronik at bedside placed patient Automatic MRI mode DDO paced at 70bpm. Patient on Monitor,continuous ECG, BP q 15min and SPO2 Normal [facility] NURSNOTE Exam completed and patient showed original settings after away from gantry. Normal [facility] Covid-19 PCR (CVDTBH)on SARS-CoV-2 (COVID-19) RNA VENESSA+probe Ql (Unsp spec) Not detected Normal NOT DETECTED [facility] Comment on above: Result Comment: When diagnostic [...] for this test is supported by the [place] of Health and Human Service's declaration that [...] Performed By: #### B MP, BNP #### [facility] [address] [place] [address] Dr. Leni Hamlin INFLUENZA A AND B [facility]on 01[facility] BEL[facility] Normal [facility] Comment on above: Result Comment: Nega tive for Flu A protein angiten. Infection due to Flu A cannot be ruled out. Flu A angiten in the sample may be below the detection limit of the test. Performed By: #### C RP #### [facility] [address] [place] [address] Dr. Leni Hamlin [facility] SEE BEL[facility] Normal [facility] Comment on above: Result Comment: Nega tive for Flu B protein antigen. Infection due to Flu B cannot be ruled out. Flu B antigen in the sample may be below the detection limit of the test. Performed By: #### C RP #### [facility] [address] [place] [address] Dr. Leni Hamlin INFLUENZA A AG Negative Normal NEGATIVE SEE COMMENT [facility] Comment on above: Performed By: #### C RP #### [facility] [address] [place], [place] [id number] Dr. Leni Hamlin INFLUENZA B AG Negative Normal NEGATIVE SEE COMMENT [facility] Comment on above: Performed By: #### C #### [facility] [address] [place], [place] [id number] Dr. Leni Hamlin CT LSPINE WO CONon [...] CIERA HERNÁNDEZ Date: 2022-12-18 15:56 Normal [facility] Office Visiton 11-07-2022 Follow-up visit [id number] Wayne Oneal 1950 M Date Provider Department Center 11/07/2022 HOLLY HILARIO CARD [facility] Family History Problem Relation Age of Onset Coronary artery disease Mother Family Status - Relation Status Age at Mother Level of Service:96518 RI OFFICE/OUTPATIENT ESTABLISHED [facility] 10-19 MIN Reason for Visit and Comments: sick sinus syndrome [Other] sinus bradycardia [Other] Normal [facility] CBC AUTO DIFFon 10-03-2022 BASO # 0.1 103/ul Normal 0.0-0.1 [facility] Comment on above: Performed By: #### B MP, BNP #### [facility] [address] [place] [address] Dr. Leni Hamlin Basophils/100 WBC (Bld) 0.5 % Normal 0.2-2.0 [facility] Comment on above: Performed By: #### B MP, BNP #### [facility] [address] [place] [address] Dr. Leni Hamlin EO # 0.3 103/ul Normal 0.0-0.7 [facility] Comment on above: Performed By: #### B MP, BNP #### [facility] [address] [place] [address] Dr. Leni Hamlin Eosinophils/100 WBC (Bld) 2.2 % Normal 0.9-7.0 [facility] Comment on above: Performed By: #### B MP, BNP #### [facility] [address] [place] [address] Dr. Leni Hamlin Erythrocyte distribution width (RBC) [Ratio] 13.3 % Normal 11.0-15.0 [facility] Comment on above: Performed By: #### B MP, BNP #### [facility] [address] [place] [address] Dr. Leni Hamlin Hematocrit (Bld) [Volume fraction] 46.9 % Normal 42.0-54.0 [facility] Comment on above: Performed By: #### B MP, BNP #### [facility] [address] [place] [address] Dr. Leni Hamlin Hemoglobin (Bld) [Mass/Vol] 15.3 g/dL Normal 14.0-18.0 [facility] Comment on above: Performed By: #### B MP, BNP #### [facility] [address] [address] [address] Leni Hamlin IG # 0.18 10e3/ul Critically high 0.00-0.03 [facility] Comment on above: Performed By: #### B MP, BNP #### [facility] [address] [address] [address] Leni Hamlin IG % 1.3 % Critically high 0.0-0.5 [facility] Comment on above: Performed By: #### B MP, BNP #### [facility] [address] [address] [address] Leni Hamlin LYMPH # 1.9 103/ul Normal 1.2-3.8 [facility] Comment on above: Performed By: #### B MP, BNP #### [facility] [address] [address] [address] Leni Hamlin Lymphocytes/100 WBC (Bld) 13.6 % Critically low 20.5-60.0 [facility] Comment on above: Performed By: #### B MP, BNP #### [facility] [address] [place] [address] Dr. Leni Hamlin MANUAL DIFF REQ NO Normal [facility] Comment on above: Performed By: #### B MP, BNP #### [facility] [address] [address] [address] Leni Hamlin MCH (RBC) [Entitic mass] 29.2 pg Normal 25.9-34.0 [facility] Comment on above: Performed By: #### B MP, BNP #### [facility] [address] [address] [address] Leni Hamlin MCHC (RBC) [Mass/Vol] 32.6 g/dL Normal 29.9-35.2 [facility] Comment on above: Performed By: #### B MP, BNP #### [facility] [address] [address] [address] Leni Hamlin MCV (RBC) [Entitic vol] 89.5 fL Normal 80.0-94.0 [facility] Comment on above: Performed By: #### B MP, BNP #### [facility] [address] [place] [address] Dr. Leni Hamlin MONO # 0.9 103/ul Critically high 0.3-0.8 [facility] Comment on above: Performed By: #### B MP, BNP #### [facility] [address] [place] [address] Dr. Leni Hamlin Monocytes/100 WBC (Bld) 6.6 % Normal 1.7-12.0 [facility] Comment on above: Performed By: #### B MP, BNP #### [facility] [address] [place] [address] Dr. Leni Hamlin NEUT # 10.4 103/ul Critically high 1.4-6.[address] [facility] Comment on above: Performed By: #### B MP, BNP #### [facility] [address] [place] [address] Dr. Leni Hamlin Neutrophils/100 WBC (Bld) 75.8 % Critically high 43.0-75.0 [facility] Comment on above: Performed By: #### B MP, BNP #### [facility] [address] [place] [address] Dr. Leni Hamlin Platelet mean volume (Bld) [Entitic vol] 10.6 fL Normal 9.5-13.5 [facility] Comment on above: Performed By: #### B MP, BNP #### [facility] [address] [place] [address] Dr. Leni Hamlin PLT 143 103/ul Critically low 150-450 [facility] Comment on above: Performed By: #### B MP, BNP #### [facility] [address] [place] [address] Dr. Leni Hamlin RBC 5.24 106/ul Normal 4.70-6.10 [facility] Comment on above: Performed By: #### B MP, BNP #### [facility] [address] [place] [address] Dr. Leni Hamlin WBC 13.7 103/ul Critically high 4.0-11.[address] [facility] Comment on above: Performed By: #### B MP, BNP #### [facility] [address] [place] [address] Dr. Leni Hamlin CRPon 10-03-2022 CRP 7.6 mg/dL Critically high <=1.0 [facility] Comment on above: Performed By: #### C MP, CRP #### [facility] [address] [place] [address] Dr. Leni Hamlin PROF 14(COMP METB)on 022 Albumin [Mass/Vol] 2.5 g/dL Critically low 3.4-5.[address] [facility] Comment on above: Performed By: #### C MP, CRP #### [facility] [address] [place] [address] Dr. Leni Hamlin Albumin/Globulin [Mass ratio] 0.7 {ratio} Normal [facility] Comment on above: Performed By: #### C MP, CRP #### [facility] [address] [place] [address] Dr. Leni Hamlin ALP [Catalytic activity/Vol] 54 U/L Normal 46-116 [facility] Comment on above: Performed By: #### C MP, CRP #### [facility] [address] [place] [address] Dr. Leni Hamlin ALT [Catalytic activity/Vol] 11 U/L Critically low 16-63 [facility] Comment on above: Performed By: #### C MP, CRP #### [facility] [address] [place] [address] Dr. Leni Hamlin Anion gap [Moles/Vol] 8.8 mmol/L Normal [facility] Comment on above: Performed By: #### C MP, CRP #### [facility] [address] [place] [address] Dr. Leni Hamlin AST [Catalytic activity/Vol] 9 U/L Critically low 15-37 [facility] Comment on above: Performed By: #### C MP, CRP #### [facility] [address] [place] [address] Dr. Leni Hamlin Bilirubin [Mass/Vol] 0.3 mg/dL Normal 0.2-1.0 [facility] Comment on above: Performed By: #### C MP, CRP #### [facility] [address] [place] [address] Dr. Leni Hamlin Calcium [Mass/Vol] 8.6 mg/dL Normal 8.5-10.1 [facility] Comment on above: Performed By: #### C MP, CRP #### [facility] [address] [place] [address] Dr. Leni Hamlin Chloride [Moles/Vol] 103 mmol/L Normal 98-107 [facility] Comment on above: Performed By: #### C MP, CRP #### [facility] [address] [place] [address] Dr. Leni Hamlin CO2 [Moles/Vol] 29.2 mmol/L Normal 21.0-32.[address] [facility] Comment on above: Performed By: #### C MP, CRP #### [facility] [address] [place] [address] Dr. Leni Hamlin Creatinine [Mass/Vol] 1.20 mg/dL Normal 0.70-1.30 [facility] Comment on above: Performed By: #### C MP, CRP #### [facility] [address] [place] [address] Dr. Leni Hamlin EGFR-AF JORDANIAN >60 Normal >=60 [facility] Comment on above: Performed By: #### C MP, CRP #### [facility] [address] [place] [address] Dr. Leni Hamlin EGFR-NON AF JORDANIAN 59 mL/min/1.73m2 Critically low >=60 [facility] Comment on above: Performed By: #### C MP, CRP #### [facility] [address] [place] [address] Dr. Leni Hamlin Globulin (S) [Mass/Vol] 3.4 g/dL Normal [facility] Comment on above: Performed By: #### C MP, CRP #### [facility] [address] [place] [address] Dr. Leni Hamlin Glucose [Mass/Vol] 108 mg/dL Critically high 74-106 T [facility] Comment on above: Performed By: #### C MP, CRP #### [facility] [address] [place] [address] Dr. Leni Hamlin Potassium [Moles/Vol] 4.0 mmol/L Normal 3.5-5.1 [facility] Comment on above: Performed By: #### C MP, CRP #### [facility] [address] [place] [address] Dr. Leni Hamlin Protein [Mass/Vol] 5.9 g/dL Critically low 6.4-8.[address] [facility] Comment on above: Performed By: #### C MP, CRP #### [facility] [address] [place] [address] Dr. Leni Hamlin Sodium [Moles/Vol] 137 mmol/L Normal 136-145 [facility] Comment on above: Performed By: #### C MP, CRP #### [facility] [address] [place] [address] Dr. Leni Hamlin Urea nitrogen [Mass/Vol] 15.0 mg/dL Normal 7.0-18.0 [facility] Comment on above: Performed By: #### C MP, CRP #### [facility] [address] [place] [address] Dr. Leni Hamlin Urea nitrogen/Creatinine [Mass ratio] 12.5 mg/mg Normal [facility] Comment on above: Performed By: #### C MP, CRP #### [facility] [address] [place] [address] Dr. Leni Hamlin CBC AUTO DIFFon 10-02-2022 BASO # 0.1 103/ul Normal 0.0-0.1 [facility] Comment on above: Performed By: #### C MP, CRP #### [facility] [address] [place] [address] Dr. Leni Hamlin Basophils/100 WBC (Bld) 0.5 % Normal 0.2-2.0 [facility] Comment on above: Performed By: #### C MP, CRP #### [facility] [address] [address] [address] Leni Hamlin EO # 0.2 103/ul Normal 0.0-0.7 [facility] Comment on above: Performed By: #### C MP, CRP #### [facility] [address] [address] [address] Leni Hamlin Eosinophils/100 WBC (Bld) 1.6 % Normal 0.9-7.0 [facility] Comment on above: Performed By: #### C MP, CRP #### [facility] [address] [place] [address] Dr. Leni Hamlin Erythrocyte distribution width (RBC) [Ratio] 13.4 % Normal 11.0-15.0 [facility] Comment on above: Performed By: #### C MP, CRP #### [facility] [address] [place] [address] Dr. Leni Hamlin Hematocrit (Bld) [Volume fraction] 46.6 % Normal 42.0-54.0 [facility] Comment on above: Performed By: #### C MP, CRP #### [facility] [address] [place] [address] Dr. Leni Hamlin Hemoglobin (Bld) [Mass/Vol] 15.1 g/dL Normal 14.0-18.0 [facility] Comment on above: Performed By: #### C MP, CRP #### [facility] [address] [place] [address] Dr. Leni Hamlin IG # 0.21 10e3/ul Critically high 0.00-0.03 [facility] Comment on above: Performed By: #### C MP, CRP #### [facility] [address] [place] [address] Dr. Leni Hamlin IG % 1.4 % Critically high 0.0-0.5 [facility] Comment on above: Performed By: #### C MP, CRP #### [facility] [address] [place] [address] Dr. Leni Hamlin LYMPH # 1.9 103/ul Normal 1.2-3.8 [facility] Comment on above: Performed By: #### C MP, CRP #### [facility] [address] [address] [address] Leni Hamlin Lymphocytes/100 WBC (Bld) 12.4 % Critically low 20.5-60.0 [facility] Comment on above: Performed By: #### C MP, CRP #### [facility] [address] [address] [address] Leni Hamlin MANUAL DIFF REQ NO Normal [facility] Comment on above: Performed By: #### C MP, CRP #### [facility] [address] [address] [address] Leni Hamlin MCH (RBC) [Entitic mass] 28.9 pg Normal 25.9-34.0 [facility] Comment on above: Performed By: #### C MP, CRP #### [facility] [address] [place] [address] Dr. Leni Hamlin MCHC (RBC) [Mass/Vol] 32.4 g/dL Normal 29.9-35.2 [facility] Comment on above: Performed By: #### C MP, CRP #### [facility] [address] [place] [address] Dr. Leni Hamlin MCV (RBC) [Entitic vol] 89.3 fL Normal 80.0-94.0 [facility] Comment on above: Performed By: #### C MP, CRP #### [facility] [address] [place] [address] Dr. Leni Hamlin MONO # 1.1 103/ul Critically high 0.3-0.8 [facility] Comment on above: Performed By: #### C MP, CRP #### [facility] [address] [place] [address] Dr. Leni Hamlin Monocytes/100 WBC (Bld) 6.9 % Normal 1.7-12.0 [facility] Comment on above: Performed By: #### C MP, CRP #### [facility] [address] [place] [address] Dr. Leni Hamlin NEUT # 11.8 103/ul Critically high 1.4-6.5 [facility] Comment on above: Performed By: #### C MP, CRP #### [facility] [address] [address] [address] Leni Hamlin Neutrophils/100 WBC (Bld) 77.2 % Critically high 43.0-75.0 [facility] Comment on above: Performed By: #### C MP, CRP #### [facility] [address] [address] [address] Leni Hamlin Platelet mean volume (Bld) [Entitic vol] 10.5 fL Normal 9.5-13.5 [facility] Comment on above: Performed By: #### C MP, CRP #### [facility] [address] [place] [address] Dr. Leni Hamlin PLT 138 103/ul Critically low 150-450 [facility] Comment on above: Performed By: #### C MP, CRP #### [facility] [address] [address] [address] Leni Hamlin RBC 5.22 106/ul Normal 4.70-6.10 [facility] Comment on above: Performed By: #### C MP, CRP #### [facility] [address] [address] [address] Leni Hamlin WBC 15.3 103/ul Critically high 4.0-11.[address] [facility] Comment on above: Performed By: #### C MP, CRP #### [facility] [address] [address] [address] Leni Hamlin CRPon 10-02-2022 CRP 13.7 mg/dL Critically high <=1.0 [facility] Comment on above: Performed By: #### C VDAGS #### [facility] [address] [place] [address] Dr. Leni Hamlin PROF 14(COMP METB)on 022 Albumin [Mass/Vol] 2.5 g/dL Critically low 3.4-5.[address] [facility] Comment on above: Performed By: #### C VDAGS #### [facility] [address] [place] [address] Dr. Leni Hamlin Albumin/Globulin [Mass ratio] 0.8 {ratio} Normal [facility] Comment on above: Performed By: #### C VDAGS #### [facility] [address] [place] [address] Dr. Leni Hamlin ALP [Catalytic activity/Vol] 54 U/L Normal 46-116 [facility] Comment on above: Performed By: #### C VDAGS #### [facility] [address] [address] [address] Leni Hamlin ALT [Catalytic activity/Vol] 13 U/L Critically low 16-63 [facility] Comment on above: Performed By: #### C VDAGS #### [facility] [address] [place] [address] Dr. Leni Hamlin Anion gap [Moles/Vol] 10.6 mmol/L Normal [facility] Comment on above: Performed By: #### C VDAGS #### [facility] [address] [address] [address] Leni Hamlin AST [Catalytic activity/Vol] 9 U/L Critically low 15-37 [facility] Comment on above: Performed By: #### C VDAGS #### [facility] [address] [place] [address] Dr. Leni Hamlin Bilirubin [Mass/Vol] 0.3 mg/dL Normal 0.2-1.0 [facility] Comment on above: Performed By: #### C VDAGS #### [facility] [address] [address] [address] Leni Hamlin Calcium [Mass/Vol] 8.5 mg/dL Normal 8.5-10.1 [facility] Comment on above: Performed By: #### C VDAGS #### [facility] [address] [place] [address] Dr. Leni Hamlin Chloride [Moles/Vol] 104 mmol/L Normal 98-107 [facility] Comment on above: Performed By: #### C VDAGS #### [facility] [address] [place] [address] Dr. Leni Hamlin CO2 [Moles/Vol] 27.5 mmol/L Normal 21.0-32.[address] [facility] Comment on above: Performed By: #### C VDAGS #### [facility] [address] [address] [address] Leni Hamlin Creatinine [Mass/Vol] 1.26 mg/dL Normal 0.70-1.30 [facility] Comment on above: Performed By: #### C VDAGS #### [facility] [address] [address] [address] Leni Hamlin EGFR-AF JORDANIAN >60 Normal >=[address] [facility] Comment on above: Performed By: #### C VDAGS #### [facility] [address] [address] [address] Leni Hamlin EGFR-NON AF JORDANIAN 56 mL/min/1.73m2 Critically low >=60 [facility] Comment on above: Performed By: #### C VDAGS #### [facility] [address] [address] [address] Leni Hamlin Globulin (S) [Mass/Vol] 3.3 g/dL Normal [facility] Comment on above: Performed By: #### C VDAGS #### [facility] [address] [place] [address] Dr. Leni Hamlin Glucose [Mass/Vol] 122 mg/dL Critically high 74-106 T [facility] Comment on above: Performed By: #### C VDAGS #### [facility] [address] [address] [address] Leni Hamlin Potassium [Moles/Vol] 4.1 mmol/L Normal 3.5-5.1 [facility] Comment on above: Performed By: #### C VDAGS #### [facility] [address] [place] [address] Dr. Leni Hamlin Protein [Mass/Vol] 5.8 g/dL Critically low 6.4-8.[address] [facility] Comment on above: Performed By: #### C VDAGS #### [facility] [address] [address] [address] Leni Hamlin Sodium [Moles/Vol] 138 mmol/L Normal 136-145 [facility] Comment on above: Performed By: #### C VDAGS #### [facility] [address] [place] [address] Dr. Leni Hamlin Urea nitrogen [Mass/Vol] 20.0 mg/dL Critically high 7.0-18.0 [facility] Comment on above: Performed By: #### C VDAGS #### [facility] [address] [place] [address] Dr. Leni Hamlin Urea nitrogen/Creatinine [Mass ratio] 15.9 mg/mg Normal [facility] Comment on above: Performed By: #### C VDAGS #### [facility] [address] [place] [address] Dr. Leni Hamlin CBC AUTO DIFFon 10-01-2022 BASO # 0.1 103/ul Normal 0.0-0.1 [facility] Comment on above: Performed By: #### C MP, CRP #### [facility] [address] [place] [address] Dr. Leni Hamlin Basophils/100 WBC (Bld) 0.3 % Normal 0.2-2.0 [facility] Comment on above: Performed By: #### C MP, CRP #### [facility] [address] [place] [address] Dr. Leni Hamlin EO # 0.2 103/ul Normal 0.0-0.7 [facility] Comment on above: Performed By: #### C MP, CRP #### [facility] [address] [place] [address] Dr. Leni Hamlin Eosinophils/100 WBC (Bld) 0.8 % Critically low 0.9-7.0 [facility] Comment on above: Performed By: #### C MP, CRP #### [facility] [address] [place] [address] Dr. Leni Hamlin Erythrocyte distribution width (RBC) [Ratio] 13.6 % Normal 11.0-15.0 [facility] Comment on above: Performed By: #### C MP, CRP #### [facility] [address] [place] [address] Dr. Leni Hamlin Hematocrit (Bld) [Volume fraction] 49.0 % Normal 42.0-54.0 [facility] Comment on above: Performed By: #### C MP, CRP #### [facility] [address] [place] [address] Dr. Leni Hamlin Hemoglobin (Bld) [Mass/Vol] 16.0 g/dL Normal 14.0-18.0 [facility] Comment on above: Performed By: #### C MP, CRP #### [facility] [address] [place] [address] Dr. Leni Hamlin IG # 0.24 10e3/ul Critically high 0.00-0.03 [facility] Comment on above: Performed By: #### C MP, CRP #### [facility] [address] [place] [address] Dr. Leni Hamlin IG % 1.2 % Critically high 0.0-0.5 [facility] Comment on above: Performed By: #### C MP, CRP #### [facility] [address] [place] [address] Dr. Leni Hamlin LYMPH # 1.6 103/ul Normal 1.2-3.8 [facility] Comment on above: Performed By: #### C MP, CRP #### [facility] [address] [place] [address] Dr. Leni Hamlin Lymphocytes/100 WBC (Bld) 8.0 % Critically low 20.5-60.0 [facility] Comment on above: Performed By: #### C MP, CRP #### [facility] [address] [place] [address] Dr. Leni Hamlin MANUAL DIFF REQ NO Normal [facility] Comment on above: Performed By: #### C MP, CRP #### [facility] [address] [place] [address] Dr. Leni Hamlin MCH (RBC) [Entitic mass] 29.4 pg Normal 25.9-34.0 [facility] Comment on above: Performed By: #### C MP, CRP #### [facility] [address] [address] [address] Leni Hamlin MCHC (RBC) [Mass/Vol] 32.7 g/dL Normal 29.9-35.2 [facility] Comment on above: Performed By: #### C MP, CRP #### [facility] [address] [address] [address] Leni Hamlin MCV (RBC) [Entitic vol] 90.1 fL Normal 80.0-94.0 [facility] Comment on above: Performed By: #### C MP, CRP #### [facility] [address] [address] [address] Leni Hamlin MONO # 1.0 103/ul Critically high 0.3-0.8 [facility] Comment on above: Performed By: #### C MP, CRP #### [facility] [address] [address] [address] Leni Hamlin Monocytes/100 WBC (Bld) 5.1 % Normal 1.7-12.0 [facility] Comment on above: Performed By: #### C MP, CRP #### [facility] [address] [address] [address] Leni Hamlin NEUT # 16.8 103/ul Critically high 1.4-6.[address] [facility] Comment on above: Performed By: #### C MP, CRP #### [facility] [address] [address] [address] Leni Hamlin Neutrophils/100 WBC (Bld) 84.6 % Critically high 43.0-75.0 [facility] Comment on above: Performed By: #### C MP, CRP #### [facility] [address] [address] [address] Leni Hamlin Platelet mean volume (Bld) [Entitic vol] 9.7 fL Normal 9.5-13.5 [facility] Comment on above: Performed By: #### C MP, CRP #### [facility] [address] [address] [address] Leni Hamlin PLT 138 103/ul Critically low 150-450 [facility] Comment on above: Performed By: #### C MP, CRP #### [facility] [address] [address] [address] Leni Hamlin RBC 5.44 106/ul Normal 4.70-6.10 [facility] Comment on above: Performed By: #### C MP, CRP #### [facility] [address] [address] [address] Leni Hamlin WBC 19.8 103/ul Critically high 4.0-11.[address] [facility] Comment on above: Performed By: #### C MP, CRP #### [facility] [address] [address] [address] Leni Hamlin BASO # 0.1 103/ul Normal 0.0-0.1 [facility] Comment on above: Performed By: #### B MP, BNP #### [facility] [address] [address] [address] Leni Hamlin Basophils/100 WBC (Bld) 0.3 % Normal 0.2-2.0 [facility] Comment on above: Performed By: #### B MP, BNP #### [facility] [address] [address] [address] Leni Hamlin EO # 0.1 103/ul Normal 0.0-0.7 [facility] Comment on above: Performed By: #### B MP, BNP #### [facility] [address] [address] [address] Leni Hamlin Eosinophils/100 WBC (Bld) 0.7 % Critically low 0.9-7.0 [facility] Comment on above: Performed By: #### B MP, BNP #### [facility] [address] [address] [address] Leni Hamlin Erythrocyte distribution width (RBC) [Ratio] 13.6 % Normal 11.0-15.0 [facility] Comment on above: Performed By: #### B MP, BNP #### [facility] [address] [address] [address] Leni Hamlin Hematocrit (Bld) [Volume fraction] 46.9 % Normal 42.0-54.0 [facility] Comment on above: Performed By: #### B MP, BNP #### [facility] [address] [place] [address] Dr. Leni Hamlin Hemoglobin (Bld) [Mass/Vol] 15.5 g/dL Normal 14.0-18.0 [facility] Comment on above: Performed By: #### B MP, BNP #### [facility] [address] [place] [address] Dr. Leni Hamlin IG # 0.16 10e3/ul Critically high 0.00-0.03 [facility] Comment on above: Performed By: #### B MP, BNP #### [facility] [address] [place] [address] Dr. Leni Hamlin IG % 0.9 % Critically high 0.0-0.5 [facility] Comment on above: Performed By: #### B MP, BNP #### [facility] [address] [place] [address] Dr. Leni Hamlin LYMPH # 1.8 103/ul Normal 1.2-3.8 [facility] Comment on above: Performed By: #### B MP, BNP #### [facility] [address] [place] [address] Dr. Leni Hamlin Lymphocytes/100 WBC (Bld) 9.7 % Critically low 20.5-60.0 [facility] Comment on above: Performed By: #### B MP, BNP #### [facility] [address] [place] [address] Dr. Leni Hamlin MANUAL DIFF REQ NO Normal [facility] Comment on above: Performed By: #### B MP, BNP #### [facility] [address] [place] [address] Dr. Leni Hamlin MCH (RBC) [Entitic mass] 29.2 pg Normal 25.9-34.0 [facility] Comment on above: Performed By: #### B MP, BNP #### [facility] [address] [place] [address] Dr. Leni Hamlin MCHC (RBC) [Mass/Vol] 33.0 g/dL Normal 29.9-35.2 [facility] Comment on above: Performed By: #### B MP, BNP #### [facility] [address] [place] [address] Dr. Leni Hamlin MCV (RBC) [Entitic vol] 88.3 fL Normal 80.0-94.0 [facility] Comment on above: Performed By: #### B MP, BNP #### [facility] [address] [place] [address] Dr. Leni Hamlin MONO # 1.4 103/ul Critically high 0.3-0.8 [facility] Comment on above: Performed By: #### B MP, BNP #### [facility] [address] [place] [address] Dr. Leni Hamlin Monocytes/100 WBC (Bld) 7.3 % Normal 1.7-12.0 [facility] Comment on above: Performed By: #### B MP, BNP #### [facility] [address] [place] [address] Dr. Leni Hamlin NEUT # 15.1 103/ul Critically high 1.4-6.[address] [facility] Comment on above: Performed By: #### B MP, BNP #### [facility] [address] [place] [address] Dr. Leni Hamlin Neutrophils/100 WBC (Bld) 81.1 % Critically high 43.0-75.0 [facility] Comment on above: Performed By: #### B MP, BNP #### [facility] [address] [place] [address] Dr. Leni Hamlin Platelet mean volume (Bld) [Entitic vol] 10.0 fL Normal 9.5-13.5 [facility] Comment on above: Performed By: #### B MP, BNP #### [facility] [address] [place] [address] Dr. Leni Hamlin PLT 141 103/ul Critically low 150-450 [facility] Comment on above: Performed By: #### B MP, BNP #### [facility] [address] [place] [address] Dr. Leni Hamlin RBC 5.31 106/ul Normal 4.70-6.10 [facility] Comment on above: Performed By: #### B MP, BNP #### [facility] [address] [place] [address] Dr. Leni Hamlin WBC 18.7 103/ul Critically high 4.0-11.[address] [facility] Comment on above: Performed By: #### B MP, BNP #### [facility] [address] [place] [address] Dr. Leni Hamlin CRPon 10-01-2022 CRP 16.0 mg/dL Critically high <=1.0 [facility] Comment on above: Performed By: #### C VDAGS #### [facility] [address] [place] [address] Dr. Leni Hamlin PROF 14(COMP METB)on 022 Albumin [Mass/Vol] 2.6 g/dL Critically low 3.4-5.0 [facility] Comment on above: Performed By: #### C MP, CRP #### [facility] [address] [place] [address] Dr. Leni Hamlin Albumin/Globulin [Mass ratio] 0.8 {ratio} Normal [facility] Comment on above: Performed By: #### C MP, CRP #### [facility] [address] [place] [address] Dr. Leni Hamlin ALP [Catalytic activity/Vol] 44 U/L Critically low 46-116 [facility] Comment on above: Performed By: #### C MP, CRP #### [facility] [address] [place] [address] Dr. Leni Hamlin ALT [Catalytic activity/Vol] 12 U/L Critically low 16-63 [facility] Comment on above: Performed By: #### C MP, CRP #### [facility] [address] [place] [address] Dr. Leni Hamlin Anion gap [Moles/Vol] 8.7 mmol/L Normal [facility] Comment on above: Performed By: #### C MP, CRP #### [facility] [address] [address] [address] Leni Hamlin AST [Catalytic activity/Vol] 10 U/L Critically low 15-37 [facility] Comment on above: Performed By: #### C MP, CRP #### [facility] [address] [place] [address] Dr. Leni Hamlin Bilirubin [Mass/Vol] 0.8 mg/dL Normal 0.2-1.0 [facility] Comment on above: Performed By: #### C MP, CRP #### [facility] [address] [place] [address] Dr. Leni Hamlin Calcium [Mass/Vol] 8.3 mg/dL Critically low 8.5-10.[address] [facility] Comment on above: Performed By: #### C MP, CRP #### [facility] [address] [place] [address] Dr. Leni Hamlin Chloride [Moles/Vol] 103 mmol/L Normal 98-107 [facility] Comment on above: Performed By: #### C MP, CRP #### [facility] [address] [place] [address] Dr. Leni Hamlin CO2 [Moles/Vol] 28.2 mmol/L Normal 21.0-32.[address] [facility] Comment on above: Performed By: #### C MP, CRP #### [facility] [address] [place] [address] Dr. Leni Hamlin Creatinine [Mass/Vol] 1.24 mg/dL Normal 0.70-1.30 [facility] Comment on above: Performed By: #### C MP, CRP #### [facility] [address] [place] [address] Dr. Leni Hamlin EGFR-AF JORDANIAN >60 Normal >=60 [facility] Comment on above: Performed By: #### C MP, CRP #### [facility] [address] [place] [address] Dr. Leni Hamlin EGFR-NON AF JORDANIAN 57 mL/min/1.73m2 Critically low >=60 [facility] Comment on above: Performed By: #### C MP, CRP #### [facility] [address] [address] [address] Leni Hamlin Globulin (S) [Mass/Vol] 3.2 g/dL Normal [facility] Comment on above: Performed By: #### C MP, CRP #### [facility] [address] [address] [address] Leni Hamlin Glucose [Mass/Vol] 111 mg/dL Critically high 74-106 T [facility] Comment on above: Performed By: #### C MP, CRP #### [facility] [address] [address] [address] Leni Hamlin Potassium [Moles/Vol] 3.9 mmol/L Normal 3.5-5.1 [facility] Comment on above: Performed By: #### C MP, CRP #### [facility] [address] [place] [address] Dr. Leni Hamlin Protein [Mass/Vol] 5.8 g/dL Critically low 6.4-8.[address] [facility] Comment on above: Performed By: #### C MP, CRP #### [facility] [address] [place] [address] Dr. Leni Hamlin Sodium [Moles/Vol] 136 mmol/L Normal 136-145 [facility] Comment on above: Performed By: #### C MP, CRP #### [facility] [address] [place] [address] Dr. Leni Hamlin Urea nitrogen [Mass/Vol] 17.0 mg/dL Normal 7.0-18.0 [facility] Comment on above: Performed By: #### C MP, CRP #### [facility] [address] [place] [address] Dr. Leni Hamlin Urea nitrogen/Creatinine [Mass ratio] 13.7 mg/mg Normal [facility] Comment on above: Performed By: #### C MP, CRP #### [facility] [address] [place] [address] Dr. Leni Hamlin C. DIFF PCRon 09-30-2022 C. DIFFICILE PCR Positive Critically abnormal NEGATIVE [facility] Comment on above: Performed By: #### C VDAGS #### [facility] [address] [address] [address] Leni Hamlin CBC AUTO DIFFon 09-30-2022 BASO # 0.0 103/ul Normal 0.0-0.1 [facility] Comment on above: Performed By: #### C BC #### [facility] [address] [place] [address] Dr. Leni Hamlin Basophils/100 WBC (Bld) 0.3 % Normal 0.2-2.0 [facility] Comment on above: Performed By: #### C BC #### [facility] [address] [place] [address] Dr. Leni Hamlin EO # 0.1 103/ul Normal 0.0-0.7 [facility] Comment on above: Performed By: #### C BC #### [facility] [address] [place] [address] Dr. Leni Hamlin Eosinophils/100 WBC (Bld) 0.8 % Critically low 0.9-7.0 [facility] Comment on above: Performed By: #### C BC #### [facility] [address] [place] [address] Dr. Leni Hamlin Erythrocyte distribution width (RBC) [Ratio] 13.4 % Normal 11.0-15.0 [facility] Comment on above: Performed By: #### C BC #### [facility] [address] [place] [address] Dr. Leni Hamlin Hematocrit (Bld) [Volume fraction] 50.4 % Normal 42.0-54.0 [facility] Comment on above: Performed By: #### C BC #### [facility] [address] [place] [address] Dr. Leni Hamlin Hemoglobin (Bld) [Mass/Vol] 16.2 g/dL Normal 14.0-18.0 [facility] Comment on above: Performed By: #### C BC #### [facility] [address] [place] [address] Dr. Leni Hamlin IG # 0.13 10e3/ul Critically high 0.00-0.03 [facility] Comment on above: Performed By: #### C BC #### [facility] [address] [place] [address] Dr. Leni Hamlin IG % 0.9 % Critically high 0.0-0.5 [facility] Comment on above: Performed By: #### C BC #### [facility] [address] [place] [address] Dr. Leni Hamlin LYMPH # 1.7 103/ul Normal 1.2-3.8 [facility] Comment on above: Performed By: #### C BC #### [facility] [address] [place] [address] Dr. Leni Hamlin Lymphocytes/100 WBC (Bld) 11.1 % Critically low 20.5-60.0 [facility] Comment on above: Performed By: #### C BC #### [facility] [address] [place] [address] Dr. Leni Hamlin MANUAL DIFF REQ NO Normal [facility] Comment on above: Performed By: #### C BC #### [facility] [address] [place] [address] Dr. Leni Hamlin MCH (RBC) [Entitic mass] 28.8 pg Normal 25.9-34.0 [facility] Comment on above: Performed By: #### C BC #### [place] [facility] [address] [place] [address] Dr. Leni Hamlin MCHC (RBC) [Mass/Vol] 32.1 g/dL Normal 29.9-35.2 [facility] Comment on above: Performed By: #### C BC #### [facility] [address] [place] [address] Dr. Leni Hamlin MCV (RBC) [Entitic vol] 89.7 fL Normal 80.0-94.0 [facility] Comment on above: Performed By: #### C BC #### [facility] [address] [place] [address] Dr. Leni Hamlin MONO # 1.5 103/ul Critically high 0.3-0.8 The [facility] Comment on above: Performed By: #### C BC #### [facility] [address] [address] [address] Leni Hamlin Monocytes/100 WBC (Bld) 9.8 % Normal 1.7-12.0 [facility] Comment on above: Performed By: #### C BC #### [facility] [address] [address] [address] Leni Hamlin NEUT # 11.7 103/ul Critically high 1.4-6.5 The [facility] Comment on above: Performed By: #### C BC #### [facility] [address] [address] [address] Leni Hamlin Neutrophils/100 WBC (Bld) 77.1 % Critically high 43.0-75.0 [facility] Comment on above: Performed By: #### C BC #### [facility] [address] [place] [address] Dr. Leni Hamlin Platelet mean volume (Bld) [Entitic vol] 9.9 fL Normal 9.5-13.5 [facility] Comment on above: Performed By: #### C BC #### [facility] [address] [place] [address] Dr. Leni Hamlin PLT 156 103/ul Normal 150-450 [facility] Comment on above: Performed By: #### C BC #### [facility] [address] [place] [address] Dr. Leni Hamlin RBC 5.62 106/ul Normal 4.70-6.10 [facility] Comment on above: Performed By: #### C BC #### [facility] [address] [place] [address] Dr. Leni Hamlin WBC 15.2 103/ul Critically high 4.0-11.0 [facility] Comment on above: Performed By: #### C BC #### [facility] [address] [place] [address] Dr. Leni Hamlin CRPon 09-30-2022 CRP 7.6 mg/dL Critically high <=1.0 The [facility] Comment on above: Performed By: #### C RP #### [facility] [address] [place], [place] [id number] Dr. Leni Hamlin PROF 14(COMP METB)on 022 Albumin [Mass/Vol] 2.8 g/dL Critically low 3.4-5.[address] [facility] Comment on above: Performed By: #### C RP #### [facility] [address] [place] [address] Dr. Leni Hamlin Albumin/Globulin [Mass ratio] 0.9 {ratio} Normal [facility] Comment on above: Performed By: #### C RP #### [facility] [address] [place] [address] Dr. Leni Hamlin ALP [Catalytic activity/Vol] 45 U/L Critically low 46-116 [facility] Comment on above: Performed By: #### C RP #### [facility] [address] [place] [address] Dr. Leni Hamlin ALT [Catalytic activity/Vol] 17 U/L Normal 16-63 [facility] Comment on above: Performed By: #### C RP #### [facility] [address] [place] [address] Dr. Leni Hamlin Anion gap [Moles/Vol] 8.4 mmol/L Normal [facility] Comment on above: Performed By: #### C RP #### [facility] [address] [place] [address] Dr. Leni Hamlin AST [Catalytic activity/Vol] 9 U/L Critically low 15-37 [facility] Comment on above: Performed By: #### C RP #### [facility] [address] [place] [address] Dr. Leni Hamlin Bilirubin [Mass/Vol] 0.6 mg/dL Normal 0.2-1.0 [facility] Comment on above: Performed By: #### C RP #### [facility] [address] [place] [address] Dr. Leni Hamlin Calcium [Mass/Vol] 8.6 mg/dL Normal 8.5-10.1 [facility] Comment on above: Performed By: #### C RP #### [facility] [address] [place] [address] Dr. Leni Hamlin Chloride [Moles/Vol] 104 mmol/L Normal 98-107 [facility] Comment on above: Performed By: #### C RP #### [facility] [address] [address] [address] Leni Hamlin CO2 [Moles/Vol] 29.6 mmol/L Normal 21.0-32.[address] [facility] Comment on above: Performed By: #### C RP #### [facility] [address] [address] [address] Leni Hamlin Creatinine [Mass/Vol] 1.23 mg/dL Normal 0.70-1.30 [facility] Comment on above: Performed By: #### C RP #### [facility] [address] [place] [address] Dr. Leni Hamlin EGFR-AF JORDANIAN >60 Normal >=[address] [facility] Comment on above: Performed By: #### C RP #### [facility] [address] [place] [address] Dr. Leni Hamlin EGFR-NON AF JORDANIAN 58 mL/min/1.73m2 Critically low >=60 [facility] Comment on above: Performed By: #### C RP #### [facility] [address] [place] [address] Dr. Leni Hamlin Globulin (S) [Mass/Vol] 3.0 g/dL Normal [facility] Comment on above: Performed By: #### C RP #### [facility] [address] [place] [address] Dr. Leni Hamlin Glucose [Mass/Vol] 113 mg/dL Critically high 74-106 [facility] Comment on above: Performed By: #### C RP #### [facility] [address] [place] [address] Dr. Leni Hamlin Potassium [Moles/Vol] 4.0 mmol/L Normal 3.5-5.1 [facility] Comment on above: Performed By: #### C RP #### [facility] [address] [place] [address] Dr. Leni Hamlin Protein [Mass/Vol] 5.8 g/dL Critically low 6.4-8.2 Th e [facility] Comment on above: Performed By: #### C RP #### [facility] [address] [place] [address] Dr. Leni Hamlin Sodium [Moles/Vol] 138 mmol/L Normal 136-145 [facility] Comment on above: Performed By: #### C RP #### [facility] [address] [place] [address] Dr. Leni Hamlin Urea nitrogen [Mass/Vol] 17.0 mg/dL Normal 7.0-18.0 [facility] Comment on above: Performed By: #### C RP #### [facility] [address] [place] [address] Dr. Leni Hamlin Urea nitrogen/Creatinine [Mass ratio] 13.8 mg/mg Normal [facility] Comment on above: Performed By: #### C RP #### [facility] [address] [place] [address] Dr. Leni Hamlin CBC AUTO DIFFon 09-29-2022 BASO # 0.1 103/ul Normal 0.0-0.1 [facility] Comment on above: Performed By: #### C VDAGS #### [facility] [address] [place] [address] Dr. Leni Hamlin Basophils/100 WBC (Bld) 0.4 % Normal 0.2-2.0 [facility] Comment on above: Performed By: #### C VDAGS #### [facility] [address] [place] [address] Dr. Leni Hamlin EO # 0.1 103/ul Normal 0.0-0.7 [facility] Comment on above: Performed By: #### C VDAGS #### [facility] [address] [place] [address] Dr. Leni Hamlin Eosinophils/100 WBC (Bld) 0.9 % Normal 0.9-7.0 [facility] Comment on above: Performed By: #### C VDAGS #### [facility] [address] [place] [address] Dr. Leni Hamlin Erythrocyte distribution width (RBC) [Ratio] 13.2 % Normal 11.0-15.0 [facility] Comment on above: Performed By: #### C VDAGS #### [facility] [address] [place] [address] Dr. Leni Hamlin Hematocrit (Bld) [Volume fraction] 53.1 % Normal 42.0-54.0 [facility] Comment on above: Performed By: #### C VDAGS #### [facility] [address] [place] [address] Dr. Leni Hamlin Hemoglobin (Bld) [Mass/Vol] 17.3 g/dL Normal 14.0-18.0 [facility] Comment on above: Performed By: #### C VDAGS #### [facility] [address] [place] [address] Dr. Leni Hamlin IG # 0.30 10e3/ul Critically high 0.00-0.03 [facility] Comment on above: Performed By: #### C VDAGS #### [facility] [address] [place] [address] Dr. Leni Hamlin IG % 2.2 % Critically high 0.0-0.5 [facility] Comment on above: Performed By: #### C VDAGS #### [facility] [address] [place] [address] Dr. Leni Hamlin LYMPH # 1.5 103/ul Normal 1.2-3.8 [facility] Comment on above: Performed By: #### C VDAGS #### [facility] [address] [place] [address] Dr. Leni Hamlin Lymphocytes/100 WBC (Bld) 10.5 % Critically low 20.5-60.0 [facility] Comment on above: Performed By: #### C VDAGS #### [facility] [address] [place] [address] Dr. Leni Hamlin MANUAL DIFF REQ NO Normal [facility] Comment on above: Performed By: #### C VDAGS #### [facility] [address] [place] [address] Dr. Leni Hamlin MCH (RBC) [Entitic mass] 29.0 pg Normal 25.9-34.0 [facility] Comment on above: Performed By: #### C VDAGS #### [facility] [address] [place] [address] Dr. Leni Hamlin MCHC (RBC) [Mass/Vol] 32.6 g/dL Normal 29.9-35.2 [facility] Comment on above: Performed By: #### C VDAGS #### [facility] [address] [place] [address] Dr. Leni Hamlin MCV (RBC) [Entitic vol] 88.9 fL Normal 80.0-94.0 [facility] Comment on above: Performed By: #### C VDAGS #### [facility] [address] [place] [address] Dr. Leni Hamlin MONO # 0.8 103/ul Normal 0.3-0.8 [facility] Comment on above: Performed By: #### C VDAGS #### [facility] [address] [place] [address] Dr. Leni Hamlin Monocytes/100 WBC (Bld) 6.0 % Normal 1.7-12.0 [facility] Comment on above: Performed By: #### C VDAGS #### [facility] [address] [place] [address] Dr. Leni Hamlin NEUT # 11.2 103/ul Critically high 1.4-6.5 [facility] Comment on above: Performed By: #### C VDAGS #### [facility] [address] [place] [address] Dr. Leni Hamlin Neutrophils/100 WBC (Bld) 80.0 % Critically high 43.0-75.0 [facility] Comment on above: Performed By: #### C VDAGS #### [facility] [address] [place] [address] Dr. Leni Hamlin Platelet mean volume (Bld) [Entitic vol] 9.6 fL Normal 9.5-13.5 [facility] Comment on above: Performed By: #### C VDAGS #### [facility] [address] [place], [place] [address] Dr. Leni Hamlin PLT 186 103/ul Normal 150-450 [facility] Comment on above: Performed By: #### C VDAGS #### [facility] [address] [place], [place] [address] Dr. Leni Hamlin RBC 5.97 106/ul Normal 4.70-6.10 [facility] Comment on above: Performed By: #### C VDAGS #### [facility] [address] [place], [place] [address] Dr. Leni Hamlin WBC 13.9 103/ul Critically high 4.0-11.0 [facility] Comment on above: Performed By: #### C VDAGS #### [facility] [address] [place], [place] [address] ABD/PELV W CONon [...] RAJESH CHACON Date: 2022-09-29 12:51 Normal [facility]on [facility]-11 SARS-CoV-2 (COVID-19) RNA VENESSA+probe Ql (Unsp spec) Not detected Normal NOT DETECTED [facility] Comment on above: Result Comment: When diagnostic [...] for this test is supported by the [employer] of Health and Human Service's declaration that [...] Performed By: #### B MP, BNP #### [facility] [address] [place] [address] Dr. Leni Hamlin GI PANEL (PCR)on 09-29-2022 Adenovirus F 40/41 Not detected Normal NOT DETECTED [facility] Comment on above: Performed By: #### C RP #### [facility] [address] [place] [address] Dr. Leni Hamlin Astrovirus Not detected Normal NOT DETECTED [facility] Comment on above: Performed By: #### C RP #### [facility] [address] [place] [address] Dr. Leni Hamlin C. Diff toxin A/B Not detected Normal NOT DETECTED [facility] Comment on above: Performed By: #### C RP #### [facility] [address] [place] [address] Dr. Leni Hamlin Campylobacter Not detected Normal NOT DETECTED The [facility] Comment on above: Performed By: #### C RP #### [facility] [address] [place] [address] Dr. Leni Hamlin Cryptosporidium Not detected Normal NOT DETECTED [facility] Comment on above: Performed By: #### C RP #### [facility] [address] [place] [address] Dr. Leni Hamlin Cyclos. Cayetanensis Not detected Normal NOT DETECTED [facility] Comment on above: Performed By: #### C RP #### [facility] [address] [place] [address] Dr. Leni Hamlin E. Coli O157 Not Applicable Normal Not Applicable [facility] Comment on above: Performed By: #### C RP #### [facility] [address] [place] [address] Dr. Leni Hamlin E. histolytica Not detected Normal NOT DETECTED [facility] Comment on above: Performed By: #### C RP #### [facility] [address] [place] [address] Dr. Leni Hamlin EAEC Not detected Normal NOT DETECTED [facility] Comment on above: Performed By: #### C RP #### [facility] [address] [place] [address] Dr. Leni Hamlin EIEC Not detected Normal NOT DETECTED [facility] Comment on above: Performed By: #### C RP #### [facility] [address] [place] [address] Dr. Leni Hamlin EPEC Not detected Normal NOT DETECTED [facility] Comment on above: Performed By: #### C RP #### [facility] [address] [place] [address] Dr. Leni Hamlin ETEC Not detected Normal NOT DETECTED [facility] Comment on above: Performed By: #### C RP #### [facility] [address] [place] [address] Dr. Leni Hamlin G. Lamblia Not detected Normal NOT DETECTED [facility] Comment on above: Performed By: #### C RP #### [facility] [address] [place] [address] Dr. Leni DINGANEL CONTROLS PASSED Normal [facility] Comment on above: Performed By: #### C RP #### [facility] [address] [place] [address] Dr. Leni Hamlin GIPNL RAGHU HEADER GI PANEL BACTERIA Normal T [facility] Comment on above: Performed By: #### C RP #### [facility] [address] [address] [address] Leni KAMARA ECOLI GI PANEL DIARRHEAGENIC E.COLI / SHIGELLA Normal [facility] Comment on above: Performed By: #### C RP #### [facility] [address] [address] [address] Leni KAMARA INFO SEE BELOW Normal [facility] Comment on above: Result Comment: EAEC - Enteroaggregative E. Coli EPEC- Enteropathogenic E. Coli ETEC- Enterotoxigenic E. Coli lt/st STEC- Shigella-like toxin-producing E. Coli stx1/stx2 EIEC- Shigella/Enteroinvasive E. Coli Performed By: #### C RP #### [facility] [address] [address] [address] Leni KAMARA PARASITES GI PANEL PARASITES Normal [facility] Comment on above: Performed By: #### C RP #### [facility] [address] [place] [address] Dr. Leni KAMARA VIRUS GI PANEL VIRUSES Normal [facility] Comment on above: Performed By: #### C RP #### [facility] [address] [address] [address] Leni Hamlin Norovirus GI/GII Not detected Normal NOT DETECTED [facility] Comment on above: Performed By: #### C RP #### [facility] [address] [address] [address] Leni Hamlin P. Shigelloides Not detected Normal NOT DETECTED [facility] Comment on above: Performed By: #### C RP #### [facility] [address] [address] [address] Leni Hamlin Rotavirus A Not detected Normal NOT DETECTED [facility] Comment on above: Performed By: #### C RP #### [facility] [address] [place] [address] Dr. Leni Hamlin Salmonella Not detected Normal NOT DETECTED [facility] Comment on above: Performed By: #### C RP #### [facility] [address] [place] [address] Dr. Leni Hamlin Sapovirus Not detected Normal NOT DETECTED [facility] Comment on above: Performed By: #### C RP #### [facility] [address] [place] [address] Dr. Leni Hamlin STEC Not detected Normal NOT DETECTED [facility] Comment on above: Performed By: #### C RP #### [facility] [address] [place] [address] Dr. Leni Hamlin Vibrio Not detected Normal NOT DETECTED [facility] Comment on above: Performed By: #### C RP #### [facility] [address] [place] [address] Dr. Leni Hamlin Vibrio Cholera Not detected Normal NOT DETECTED [facility] Comment on above: Performed By: #### C RP #### [facility] [address] [place] [address] Dr. Leni Hamlin Y. Enterocolitica Not detected Normal NOT DETECTED [facility] Comment on above: Performed By: #### C RP #### [facility] [address] [place] [address] Dr. Leni Hamlin PROF CHEM 8 (BAS METB)on Anion gap [Moles/Vol] 5.8 mmol/L Normal [facility] Comment on above: Performed By: #### C VDAGS #### [facility] [address] [place] [address] Dr. Leni Hamlin Calcium [Mass/Vol] 9.0 mg/dL Normal 8.5-10.1 [facility] Comment on above: Performed By: #### C VDAGS #### [facility] [address] [place] [address] Dr. Leni Hamlin Chloride [Moles/Vol] 103 mmol/L Normal 98-107 [facility] Comment on above: Performed By: #### C VDAGS #### [facility] [address] [place] [address] Dr. Leni Hamlin CO2 [Moles/Vol] 31.7 mmol/L Normal 21.0-32.0 [facility] Comment on above: Performed By: #### C VDAGS #### [facility] [address] [address] [address] Leni Hamlin Creatinine [Mass/Vol] 1.28 mg/dL Normal 0.70-1.30 [facility] Comment on above: Performed By: #### C VDAGS #### [facility] [address] [address] [address] Leni Hamlin EGFR-AF JORDANIAN >60 Normal >=[address] [facility] Comment on above: Performed By: #### C VDAGS #### [facility] [address] [address] [address] Leni Hamlin EGFR-NON AF JORDANIAN 55 mL/min/1.73m2 Critically low >=60 [facility] Comment on above: Performed By: #### C VDAGS #### [facility] [address] [address] [address] Leni Hamlin Glucose [Mass/Vol] 130 mg/dL Critically high 74-106 [facility] Comment on above: Performed By: #### C VDAGS #### [facility] [address] [address] [address] Leni Hamlin Potassium [Moles/Vol] 4.5 mmol/L Normal 3.5-5.1 [facility] Comment on above: Performed By: #### C VDAGS #### [facility] [address] [address] [address] Leni Hamlin Sodium [Moles/Vol] 136 mmol/L Normal 136-145 [facility] Comment on above: Performed By: #### C VDAGS #### [facility] [address] [address] [address] Leni Hamlin Urea nitrogen [Mass/Vol] 23.0 mg/dL Critically high 7.0-18.0 [facility] Comment on above: Performed By: #### C VDAGS #### [facility] [address] [address] [address] Leni Hamlin Urea nitrogen/Creatinine [Mass ratio] 18.0 mg/mg Normal [facility] Comment on above: Performed By: #### C VDAGS #### [facility] [address] [place] [address] Dr. Leni Hamlin Covid-19 PCR (CVDTB)on 08-13 SARS-CoV-2 (COVID-19) RNA VENESSA+probe Ql (Unsp spec) Not detected Normal NOT DETECTED [facility] Comment on above: Result Comment: When diagnostic [...] for this test is supported by the [place] of Health and Human Service's declaration that [...] Performed By: #### C MP, CRP #### [facility] [address] [place] [address] Dr. Leni Hamlin Covid-19 PCR (CVDTB)on 05-11 SARS-CoV-2 (COVID-19) RNA VENESSA+probe Ql (Unsp spec) Detected Critically abnormal NOT DETECTED [facility] Comment on above: Result Comment: This test is not yet approved or cleared by the [place] FDA. When there are no FDA-approved or cleared tests available, and other criteria are met, FDA can make tests available under an emergency access mechanism called an Emergency Use Authorization (EUA). The EUA for this test is supported by the [employer] of Health and Human Service's (HHS's) declaration [...] used). Performed By: #### C RP #### [facility] [address] [place], [place] [id number] Dr. Leni Hamlin Covid-19 PCR (CVDTB)on 04-11 SARS-CoV-2 (COVID-19) RNA VENESSA+probe Ql (Unsp spec) Not detected Normal NOT DETECTED [facility] Comment on above: Result Comment: This test is not yet approved or cleared by the [place] FDA. When there are no FDA-approved or cleared tests available, and other criteria are met, FDA can make tests available under an emergency access mechanism called an Emergency Use Authorization (EUA). The EUA for this test is supported by the [place] of Health and Human Service's (HHS's) declaration [...] SARS-CoV-2. Performed By: #### C VDTB #### [facility] [address] [place] [id number] [address] Leni Hamlin SYMPTOMATIC COVID-19 ANTIGEN on 04-23-2022 EUA Statement SEE BELOW Normal The [facility] Comment on above: Result Comment: This [...] sooner. Performed By: #### C VDAGS #### [facility] [address] [place], [place] [address] Dr. Leni Hamlin SARS-CoV-2 (COVID-19) RNA VENESSA+probe Ql (Unsp spec) Negative Normal NEGATIVE [facility] Comment on above: Performed By: #### C VDAGS #### [facility] [address] [place], [place] [address] Dr. Leni Hamlin Cardiovascular Lab Reporton 03-22-[address] [facility] Patient Name: Brian Oneal [facility] Jesus MR #: [id number] Department of Physician: Modesto Becerra MD Medicine Service Date: 03/22/2022 Division of Birthdate: 1950 Cardiology Room #: Adult Cardiovascular Services [place] [id number] Cardiovascular Laboratory Report PACEMAKER IMPLANT PROCEDURE NOTE [...] using modified seldinger technique using a 5 Setswana micro-puncture needle on two occasions and 0.35 [...] pocket was created for the device. 6 Setswana Safesheaths were placed over the wire. An active fixation Biotronik pacing lead was then delivered through the 6Fsheath to the right ventricle. After confirmation of lead position on orthogonal views (RUBALCAVA and GUAMANIAN) to confirm septal position, the screw was [...] lead position on orthogonal views (RUBALCAVA and GUAMANIAN), the screw was activated. After confirmation of [...] Device info: Biotronik Edora Model# 8DR-T Serial# [id number] RA lead: Model# Biotronik Solia S45 Serial# [id number] Sensin.5mV Threshold: 0.6V@0.5ms Impedance: 507 Ohms RV lead: Model# Biotronik Solia S53 Serial# [id number] Sensin.5mV Threshold: 0.6V@0.4ms Impedance: 663 Ohms POST [...] El (more content not included)... Normal The [facility] SPUTUM CULTUREon 03-17-2022 Epithelial cells LM Ql (Urine sed) Few Normal [facility] Comment on above: Performed By: #### B MP, BNP #### [facility] [address] [place] [address] [address] Leni Hamlin Gram Stain Evaluation Comment Normal [facility] Comment on above: Result Comment: This specimen is of good quality and is acceptable for routine bacterial culture. Performed By: #### B MP, BNP #### [facility] [address] [place] [address] [address] Leni Hamlin Lower Respiratory Culture Final report Normal [facility] Comment on above: Performed By: #### B MP, BNP #### [facility] [address] [place] [address] [address] Leni Hamlin Result 1 Comment Normal [facility] Comment on above: Result Comment: Few gram negative rods. Performed By: #### B MP, BNP #### [facility] [address] [place] [address] [address] Leni Hamlin Result Comment: Rout ine respiratory bola Result 2 Comment Normal [facility] Comment on above: Result Comment: Few gram positive cocci Performed By: #### B MP, BNP #### [facility] [address] [place] [address] Dr. Leni Hamlin Result 3 Comment Normal [facility] Comment on above: Result Comment: Rare gram positive rods Performed By: #### B MP, BNP #### [facility] [address] [place] [address] Dr. Leni Hamlin Result 4 Normal [facility] Comment on above: Performed By: #### B MP, BNP #### [facility] [address] [place] [address] Dr. Leni Hamlin White Blood Cells Few Normal The [facility] Comment on above: Performed By: #### B MP, BNP #### [facility] [address] [place] [address] Dr. Leni Hamlin BNPon 03-15-2022 Natriuretic peptide B (Bld) [Mass/Vol] 429.0 pg/mL Normal <=900.0 [facility] Comment on above: Performed By: #### C MP, CRP #### [facility] [address] [place] [address] Dr. Leni Hamlin CBC AUTO DIFFon 03-15-2022 BASO # 0.0 103/ul Normal 0.0-0.1 [facility] Comment on above: Performed By: #### C VDAGS #### [facility] [address] [place] [address] Dr. Leni Hamlin Basophils/100 WBC (Bld) 0.2 % Normal 0.2-2.0 [facility] Comment on above: Performed By: #### C VDAGS #### [facility] [address] [place] [address] Dr. Leni Hamlin EO # 0.0 103/ul Normal 0.0-0.7 [facility] Comment on above: Performed By: #### C VDAGS #### [facility] [address] [place] [address] Dr. Leni Hamlin Eosinophils/100 WBC (Bld) 0.0 % Critically low 0.9-7.0 [facility] Comment on above: Performed By: #### C VDAGS #### [facility] [address] [place] [address] Dr. Leni Hamlin Erythrocyte distribution width (RBC) [Ratio] 13.6 % Normal 11.0-15.0 [facility] Comment on above: Performed By: #### C VDAGS #### [facility] [address] [place] [address] Dr. Leni Hamlin Hematocrit (Bld) [Volume fraction] 44.5 % Normal 42.0-54.0 [facility] Comment on above: Performed By: #### C VDAGS #### [facility] [address] [place] [address] Dr. Leni Hamlin Hemoglobin (Bld) [Mass/Vol] 13.8 g/dL Critically low 14.0-18.0 [facility] Comment on above: Performed By: #### C VDAGS #### [facility] [address] [place] [address] Dr. Leni Hamlin IG # 0.35 10e3/ul Critically high 0.00-0.03 [facility] Comment on above: Performed By: #### C VDAGS #### [facility] [address] [place] [address] Dr. Leni Hamlin IG % 2.4 % Critically high 0.0-0.5 [facility] Comment on above: Performed By: #### C VDAGS #### [facility] [address] [place] [address] Dr. Leni Hamlin LYMPH # 0.6 103/ul Critically low 1.2-3.8 [facility] Comment on above: Performed By: #### C VDAGS #### [facility] [address] [place] [address] Dr. Leni Hamlin Lymphocytes/100 WBC (Bld) 4.1 % Critically low 20.5-60.0 [facility] Comment on above: Performed By: #### C VDAGS #### [facility] [address] [place] [address] Dr. Leni Hamlin MANUAL DIFF REQ NO Normal [facility] Comment on above: Performed By: #### C VDAGS #### [facility] [address] [place] [address] [address] Leni Hamlin MCH (RBC) [Entitic mass] 29.4 pg Normal 25.9-34.0 [facility] Comment on above: Performed By: #### C VDAGS #### [facility] [address] [place] [address] Dr. Leni Hamlin MCHC (RBC) [Mass/Vol] 31.0 g/dL Normal 29.9-35.2 [facility] Comment on above: Performed By: #### C VDAGS #### [facility] [address] [place] [address] Dr. Leni Hamlin MCV (RBC) [Entitic vol] 94.7 fL Critically high 80.0-94.0 [facility] Comment on above: Performed By: #### C VDAGS #### [facility] [address] [place] [address] Dr. Leni Hamlin MONO # 0.7 103/ul Normal 0.3-0.8 [facility] Comment on above: Performed By: #### C VDAGS #### [facility] [address] [place] [address] Dr. Leni Hamlin Monocytes/100 WBC (Bld) 4.7 % Normal 1.7-12.0 [facility] Comment on above: Performed By: #### C VDAGS #### [facility] [address] [place] [address] Dr. Leni Hamlin NEUT # 12.9 103/ul Critically high 1.4-6.5 [facility] Comment on above: Performed By: #### C VDAGS #### [facility] [address] [place] [address] Dr. Leni Hamlin Neutrophils/100 WBC (Bld) 88.6 % Critically high 43.0-75.0 [facility] Comment on above: Performed By: #### C VDAGS #### [facility] [address] [place] [address] Dr. Leni Hamlin Platelet mean volume (Bld) [Entitic vol] 10.2 fL Normal 9.5-13.5 [facility] Comment on above: Performed By: #### C VDAGS #### [facility] [address] [place] [address] Dr. Leni Hamlin PLT 176 103/ul Normal 150-450 [facility] Comment on above: Performed By: #### C VDAGS #### [facility] [address] [place] [address] Dr. Leni Hamlin RBC 4.70 106/ul Normal 4.70-6.10 [facility] Comment on above: Performed By: #### C VDAGS #### [facility] [address] [place] [address] Dr. Leni Hamlin WBC 14.6 103/ul Critically high 4.0-11.[address] [facility] Comment on above: Performed By: #### C VDAGS #### [facility] [address] [place] [address] Dr. Leni Hamlin PROF CHEM 8 (BAS METB)on Anion gap [Moles/Vol] 10.2 mmol/L Normal [facility] Comment on above: Performed By: #### C MP, CRP #### [facility] [address] [place] [address] Dr. Leni Hamlin Calcium [Mass/Vol] 8.0 mg/dL Critically low 8.5-10.[address] [facility] Comment on above: Performed By: #### C MP, CRP #### [facility] [address] [place] [address] Dr. eLni Hamlin Chloride [Moles/Vol] 104 mmol/L Normal 98-107 [facility] Comment on above: Performed By: #### C MP, CRP #### [facility] [address] [place] [address] Dr. Leni Hamlin CO2 [Moles/Vol] 28.2 mmol/L Normal 21.0-32.0 [facility] Comment on above: Performed By: #### C MP, CRP #### [facility] [address] [place] [address] Dr. Leni Hamlin Creatinine [Mass/Vol] 1.36 mg/dL Critically high 0.70-1.30 [facility] Comment on above: Performed By: #### C MP, CRP #### [facility] [address] [place] [address] Dr. Leni Hamlin EGFR-AF JORDANIAN >60 Normal >=[address] [facility] Comment on above: Performed By: #### C MP, CRP #### [facility] [address] [place] [address] [address] Leni Hamlin EGFR-NON AF JORDANIAN 51 mL/min/1.73m2 Critically low >=60 [facility] Comment on above: Performed By: #### C MP, CRP #### [facility] [address] [place] [address] [address] Leni Hamlin Glucose [Mass/Vol] 205 mg/dL Critically high 74-106 T [facility] Comment on above: Performed By: #### C MP, CRP #### [facility] [address] [place] [address] Dr. Leni Hamlin Potassium [Moles/Vol] 4.4 mmol/L Normal 3.5-5.1 [facility] Comment on above: Performed By: #### C MP, CRP #### [facility] [address] [place] [address] Dr. Leni Hamlin Sodium [Moles/Vol] 138 mmol/L Normal 136-145 [facility] Comment on above: Performed By: #### C MP, CRP #### [facility] [address] [place] [address] Dr. Leni Hamlin Urea nitrogen [Mass/Vol] 29.0 mg/dL Critically high 7.0-18.0 [facility] Comment on above: Performed By: #### C MP, CRP #### [facility] [address] [place] [address] Dr. Leni Hamlin Urea nitrogen/Creatinine [Mass ratio] 21.3 mg/mg Normal [facility] Comment on above: Performed By: #### C MP, CRP #### [facility] [address] [place] [address] Dr. Leni Hamlin BNPon 03-14-2022 Natriuretic peptide B (Bld) [Mass/Vol] 337.0 pg/mL Normal <=900.0 [facility] Comment on above: Performed By: #### C RP #### [facility] [address] [place] [address] Dr. Leni Hamlin CBC AUTO DIFFon 03-14-2022 BASO # 0.0 103/ul Normal 0.0-0.1 [facility] Comment on above: Performed By: #### C MP, CRP #### [facility] [address] [place] [address] Dr. Leni Hamlin Basophils/100 WBC (Bld) 0.2 % Normal 0.2-2.0 [facility] Comment on above: Performed By: #### C MP, CRP #### [facility] [address] [place] [address] Dr. Leni Hamlin EO # 0.0 103/ul Normal 0.0-0.7 [facility] Comment on above: Performed By: #### C MP, CRP #### [facility] [address] [place] [address] Dr. Leni Hamlin Eosinophils/100 WBC (Bld) 0.0 % Critically low 0.9-7.0 [facility] Comment on above: Performed By: #### C MP, CRP #### [facility] [address] [place] [address] Dr. Leni Hamlin Erythrocyte distribution width (RBC) [Ratio] 13.6 % Normal 11.0-15.0 [facility] Comment on above: Performed By: #### C MP, CRP #### [facility] [address] [place] [address] Dr. Leni Hamlin Hematocrit (Bld) [Volume fraction] 47.8 % Normal 42.0-54.0 [facility] Comment on above: Performed By: #### C MP, CRP #### [facility] [address] [place] [address] Dr. Leni Hamlin Hemoglobin (Bld) [Mass/Vol] 14.6 g/dL Normal 14.0-18.0 [facility] Comment on above: Performed By: #### C MP, CRP #### [facility] [address] [place] [address] [address] Leni Hamlin IG # 0.22 10e3/ul Critically high 0.00-0.03 [facility] Comment on above: Performed By: #### C MP, CRP #### [facility] [address] [place] [address] [address] Leni Hamlin IG % 1.3 % Critically high 0.0-0.5 [facility] Comment on above: Performed By: #### C MP, CRP #### [facility] [address] [place] [address] [address] Leni Hamlin LYMPH # 0.5 103/ul Critically low 1.2-3.8 [facility] Comment on above: Performed By: #### C MP, CRP #### [facility] [address] [place] [address] Dr. Leni Hamlin Lymphocytes/100 WBC (Bld) 2.9 % Critically low 20.5-60.0 [facility] Comment on above: Performed By: #### C MP, CRP #### [facility] [address] [place] [address] [address] Leni Hamlin MANUAL DIFF REQ NO Normal [facility] Comment on above: Performed By: #### C MP, CRP #### [facility] [address] [place] [address] [address] Leni Hamlin MCH (RBC) [Entitic mass] 29.4 pg Normal 25.9-34.0 [facility] Comment on above: Performed By: #### C MP, CRP #### [facility] [address] [place] [address] [address] Leni Hamlin MCHC (RBC) [Mass/Vol] 30.5 g/dL Normal 29.9-35.2 [facility] Comment on above: Performed By: #### C MP, CRP #### [facility] [address] [place] [address] [address] Leni Hamlin MCV (RBC) [Entitic vol] 96.4 fL Critically high 80.0-94.0 [facility] Comment on above: Performed By: #### C MP, CRP #### [facility] [address] [place] [address] [address] Leni Hamlin MONO # 1.1 103/ul Critically high 0.3-0.8 [facility] Comment on above: Performed By: #### C MP, CRP #### [facility] [address] [place] [address] [address] Leni Hamlin Monocytes/100 WBC (Bld) 6.4 % Normal 1.7-12.0 [facility] Comment on above: Performed By: #### C MP, CRP #### [facility] [address] [place] [address] [address] Leni Hamlin NEUT # 15.2 103/ul Critically high 1.4-6.[address] [facility] Comment on above: Performed By: #### C MP, CRP #### [facility] [address] [place] [address] [address] Leni Hamlin Neutrophils/100 WBC (Bld) 89.2 % Critically high 43.0-75.0 [facility] Comment on above: Performed By: #### C MP, CRP #### [facility] [address] [place] [address] [address] Leni Hamlin Platelet mean volume (Bld) [Entitic vol] 10.4 fL Normal 9.5-13.5 [facility] Comment on above: Performed By: #### C MP, CRP #### [facility] [address] [place] [address] [address] Leni Hamlin PLT 167 103/ul Normal 150-450 [facility] Comment on above: Performed By: #### C MP, CRP #### [facility] [address] [place] [address] [address] Leni Hamlin RBC 4.96 106/ul Normal 4.70-6.10 [facility] Comment on above: Performed By: #### C MP, CRP #### [facility] [address] [place] [address] Dr. Leni Hamlin WBC 17.0 103/ul Critically high 4.0-11.0 [facility] Comment on above: Performed By: #### C MP, CRP #### [facility] [address] [place] [address] Dr. Leni Hamlin PROF CHEM 8 (BAS METB)on Anion gap [Moles/Vol] 7.0 mmol/L Normal [facility] Comment on above: Performed By: #### C VDAGS #### [facility] [address] [place] [address] Dr. Leni Hamlin Calcium [Mass/Vol] 8.3 mg/dL Critically low 8.5-10.[address] [facility] Comment on above: Performed By: #### C VDAGS #### [facility] [address] [place] [address] Dr. Leni Hamlin Chloride [Moles/Vol] 102 mmol/L Normal 98-107 [facility] Comment on above: Performed By: #### C VDAGS #### [facility] [address] [place] [address] Dr. Leni Hamlin CO2 [Moles/Vol] 29.6 mmol/L Normal 21.0-32.[address] [facility] Comment on above: Performed By: #### C VDAGS #### [facility] [address] [place] [address] Dr. Leni Hamlin Creatinine [Mass/Vol] 1.48 mg/dL Critically high 0.70-1.30 [facility] Comment on above: Performed By: #### C VDAGS #### [facility] [address] [place] [address] Dr. Leni Hamlin EGFR-AF JORDANIAN 56 mL/min/1.73m2 Critically low >=60 [facility] Comment on above: Performed By: #### C VDAGS #### [facility] [address] [place] [address] Dr. Leni Hamlin EGFR-NON AF JORDANIAN 47 mL/min/1.73m2 Critically low >=60 [facility] Comment on above: Performed By: #### C VDAGS #### [facility] [address] [place] [address] Dr. Leni Hamlin Glucose [Mass/Vol] 168 mg/dL Critically high 74-106 T [facility] Comment on above: Performed By: #### C VDAGS #### [facility] [address] [place] [address] Dr. Leni Hamlin Potassium [Moles/Vol] 4.6 mmol/L Normal 3.5-5.1 [facility] Comment on above: Performed By: #### C VDAGS #### [facility] [address] [place] [address] Dr. Leni Hamlin Sodium [Moles/Vol] 134 mmol/L Critically low 136-[address] [facility] Comment on above: Performed By: #### C VDAGS #### [facility] [address] [place] [address] Dr. Leni Hamlin Urea nitrogen [Mass/Vol] 29.0 mg/dL Critically high 7.0-18.0 [facility] Comment on above: Performed By: #### C VDAGS #### [place] [facility] [address] [place] [address] Dr. Leni Hamlin Urea nitrogen/Creatinine [Mass ratio] 19.6 mg/mg Normal [facility] Comment on above: Performed By: #### C VDAGS #### [facility] [address] [place] [address] Dr. Leni Hamlin BNPon 03-13-2022 Natriuretic peptide B (Bld) [Mass/Vol] 501.0 pg/mL Normal <=900.0 [facility] Comment on above: Performed By: #### B MP, BNP #### [facility] [address] [place] [address] Dr. Leni Hamlin CBC W MANUAL DIFFon 03-13-20 ATYPICAL LYMPH # Normal [facility] Comment on above: Performed By: #### C VDAGS #### [facility] [address] [place] [address] Dr. Leni Hamlin ATYPICAL LYMPH % Normal [facility] Comment on above: Performed By: #### C VDAGS #### [facility] [address] [place] [address] Dr. Leni Hamlin BAND # 2.1 103/ul Critically high 0.0-0.3 [facility] Comment on above: Performed By: #### C VDAGS #### [facility] [address] [place] [address] Dr. Leni Hamlin BAND % 12 % Critically high 0-5 [facility] Comment on above: Performed By: #### C VDAGS #### [facility] [address] [place] [address] Dr. Leni Hamlin BASOM # 0.00 103/ul Normal 0.00-0.10 [facility] Comment on above: Performed By: #### C VDAGS #### [facility] [address] [place] [address] Dr. Leni Hamlin BASOM % 0.0 % Critically low 0.2-2.0 [facility] Comment on above: Performed By: #### C VDAGS #### [facility] [address] [place] [address] Dr. Leni Hamlin BLAST # Normal [facility] Comment on above: Performed By: #### C VDAGS #### [facility] [address] [place] [address] Dr. Leni Hamlin BLAST % Normal [facility] Comment on above: Performed By: #### C VDAGS #### [facility] [address] [place] [address] Dr. Leni Hamlin CORRECTED WBC Normal 4.0-11.0 The [facility] Comment on above: Performed By: #### C VDAGS #### [facility] [address] [place] [address] Dr. Leni Hamlin EOS # 0.00 103/ul Normal 0.00-0.70 [facility] Comment on above: Performed By: #### C VDAGS #### [facility] [address] [place] [address] Dr. Leni Hamlin EOS% 0.0 % Critically low 0.9-7.0 [facility] Comment on above: Performed By: #### C VDAGS #### [facility] [address] [address] [address] Leni Hamlin HCT 51.2 % Normal 42.0-54.0 [facility] Comment on above: Performed By: #### C VDAGS #### [facility] [address] [address] [address] Leni Hamlin HGB 15.4 g/dl Normal 14.0-18.0 [facility] Comment on above: Performed By: #### C VDAGS #### [facility] [address] [address] [address] Leni Hamlin LYMPHM # 0.52 103/ul Critically low 1.20-3.80 [facility] Comment on above: Performed By: #### C VDAGS #### [facility] [address] [place] [address] Dr. Leni Hamlin LYMPHM% 3.0 % Critically low 20.5-60.0 [facility] Comment on above: Performed By: #### C VDAGS #### [facility] [address] [place] [address] Dr. Leni Hamlin MCH 29.6 pg Normal 25.9-34.0 [facility] Comment on above: Performed By: #### C VDAGS #### [facility] [address] [place] [address] Dr. Leni Hamlin MCHC 30.1 g/dl Normal 29.9-35.2 [facility] Comment on above: Performed By: #### C VDAGS #### [facility] [address] [address] [address] Leni Hamlin MCV 98.5 fL Critically high 80.0-94.0 [facility] Comment on above: Performed By: #### C VDAGS #### [facility] [address] [place] [address] Dr. Leni Hamlin METAMYELOCYTE # Normal [facility] Comment on above: Performed By: #### C VDAGS #### [facility] [address] [place] [address] Dr. Leni Hamlin METAMYELOCYTE % Normal [facility] Comment on above: Performed By: #### C VDAGS #### [facility] [address] [address] [address] Leni Hamlin MONOM# 0.86 103/ul Critically high 0.30-0.[address] [facility] Comment on above: Performed By: #### C VDAGS #### [facility] [address] [address] [address] Leni Hamlin MONOM% 5.0 % Normal 1.7-12.0 [facility] Comment on above: Performed By: #### C VDAGS #### [facility] [address] [address] [address] Leni Hamlin MPV 10.0 fL Normal 9.5-13.5 [facility] Comment on above: Performed By: #### C VDAGS #### [facility] [address] [place] [address] Dr. Leni Hamlin MYELOCYTE # Normal [facility] Comment on above: Performed By: #### C VDAGS #### [facility] [address] [address] [address] Leni Hamlin MYELOCYTE % Normal [facility] Comment on above: Performed By: #### C VDAGS #### [facility] [address] [place] [address] Dr. Leni Hamlin NRBC Normal [facility] Comment on above: Performed By: #### C VDAGS #### [facility] [address] [place] [address] Dr. Leni Hamlin PLT 161 103/ul Normal 150-450 [facility] Comment on above: Performed By: #### C VDAGS #### [facility] [address] [address] [address] Leni Hamlin RBC 5.20 106/ul Normal 4.70-6.10 [facility] Comment on above: Performed By: #### C VDAGS #### [facility] [address] [address] [address] Leni Hamlin RDW 13.5 % Normal 11.0-15.0 [facility] Comment on above: Performed By: #### C VDAGS #### [facility] [address] [address] [address] Leni Hamlin SEG # 13.76 103/ul Critically high 1.40-6.50 [facility] Comment on above: Performed By: #### C VDAGS #### [facility] [address] [address] [address] Leni Hamlin SEG % 80.0 % Critically high 43.0-75.0 [facility] Comment on above: Performed By: #### C VDAGS #### [facility] [address] [address] [address] Leni Hamlin WBC 17.2 103/ul Critically high 4.0-11.[address] [facility] Comment on above: Performed By: #### C VDAGS #### [facility] [address] [place] [address] Dr. Leni Hamlin PROF CHEM 8 (BAS METB)on Anion gap [Moles/Vol] 12.5 mmol/L Normal [facility] Comment on above: Performed By: #### C VDAGS #### [facility] [address] [place] [address] Dr. Leni Hamlin Calcium [Mass/Vol] 8.4 mg/dL Critically low 8.5-10.[address] [facility] Comment on above: Performed By: #### C VDAGS #### [facility] [address] [address] [address] Leni Hamlin Chloride [Moles/Vol] 100 mmol/L Normal 98-107 [facility] Comment on above: Performed By: #### C VDAGS #### [facility] [address] [address] [address] eLni Hamlin CO2 [Moles/Vol] 26.7 mmol/L Normal 21.0-32.[address] [facility] Comment on above: Performed By: #### C VDAGS #### [facility] [address] [address] [address] Leni Hamlin Creatinine [Mass/Vol] 1.87 mg/dL Critically high 0.70-1.30 [facility] Comment on above: Performed By: #### C VDAGS #### [facility] [address] [place] [address] Dr. Leni Hamlin EGFR-AF JORDANIAN 43 mL/min/1.73m2 Critically low >=60 [facility] Comment on above: Performed By: #### C VDAGS #### [facility] [address] [place] [address] Dr. Leni Hamlin EGFR-NON AF JORDANIAN 36 mL/min/1.73m2 Critically low >=60 [facility] Comment on above: Performed By: #### C VDAGS #### [facility] [address] [place] [address] Dr. Leni Hamlin Glucose [Mass/Vol] 222 mg/dL Critically high 74-106 T [facility] Comment on above: Performed By: #### C VDAGS #### [facility] [address] [place] [address] Dr. Leni Hamlin Potassium [Moles/Vol] 4.2 mmol/L Normal 3.5-5.1 [facility] Comment on above: Performed By: #### C VDAGS #### [facility] [address] [place] [address] Dr. Leni Hamlin Sodium [Moles/Vol] 135 mmol/L Critically low 136-[address] [facility] Comment on above: Performed By: #### C VDAGS #### [facility] [address] [place] [address] Dr. Leni Hamlin Urea nitrogen [Mass/Vol] 25.0 mg/dL Critically high 7.0-18.0 [facility] Comment on above: Performed By: #### C VDAGS #### [facility] [address] [place] [address] Dr. Leni Hamlin Urea nitrogen/Creatinine [Mass ratio] 13.4 mg/mg Normal [facility] Comment on above: Performed By: #### C VDAGS #### [facility] [address] [place] [address] Dr. Leni Hamlin Anion gap [Moles/Vol] 10.7 mmol/L Normal [facility] Comment on above: Performed By: #### B MP, BNP #### [facility] [address] [place] [address] Dr. Leni Hamlin Calcium [Mass/Vol] 8.2 mg/dL Critically low 8.5-10.1 Th e [facility] Comment on above: Performed By: #### B MP, BNP #### [facility] [address] [place] [address] Dr. Leni Hamlin Chloride [Moles/Vol] 101 mmol/L Normal 98-107 [facility] Comment on above: Performed By: #### B MP, BNP #### [facility] [address] [place] [address] Dr. Leni Hamlin CO2 [Moles/Vol] 30.0 mmol/L Normal 21.0-32.[address] [facility] Comment on above: Performed By: #### B MP, BNP #### [facility] [address] [place] [address] Dr. Leni Hamlin Creatinine [Mass/Vol] 1.49 mg/dL Critically high 0.70-1.30 [facility] Comment on above: Performed By: #### B MP, BNP #### [facility] [address] [place] [address] Dr. Leni Hamlin EGFR-AF JORDANIAN 56 mL/min/1.73m2 Critically low >=60 [facility] Comment on above: Performed By: #### B MP, BNP #### [facility] [address] [place] [address] Dr. Leni Hamlin EGFR-NON AF JORDANIAN 46 mL/min/1.73m2 Critically low >=60 [facility] Comment on above: Performed By: #### B MP, BNP #### [facility] [address] [place] [address] Dr. Leni Hamlin Glucose [Mass/Vol] 158 mg/dL Critically high 74-106 T [facility] Comment on above: Performed By: #### B MP, BNP #### [facility] [address] [place] [address] Dr. Leni Hamlin Potassium [Moles/Vol] 5.7 mmol/L Critically high 3.5-5.1 [facility] Comment on above: Performed By: #### B MP, BNP #### [facility] [address] [place] [address] Dr. Leni Hamlin Sodium [Moles/Vol] 136 mmol/L Normal 136-145 [facility] Comment on above: Performed By: #### B MP, BNP #### [facility] [address] [place] [address] Dr. Leni Hamlin Urea nitrogen [Mass/Vol] 19.0 mg/dL Critically high 7.0-18.0 [facility] Comment on above: Performed By: #### B MP, BNP #### [facility] [address] [place] [address] Dr. Leni Hamlin Urea nitrogen/Creatinine [Mass ratio] 12.8 mg/mg Normal [facility] Comment on above: Performed By: #### B MP, BNP #### [facility] [address] [place] [address] Dr. Leni Hamlin BNPon 03-12-2022 Natriuretic peptide B (Bld) [Mass/Vol] 405.0 pg/mL Normal <=900.0 [facility] Comment on above: Performed By: #### B MP, BNP #### [facility] [address] [place] [address] Dr. Leni Hamlin CBC AUTO DIFFon 03-12-2022 BASO # 0.1 103/ul Normal 0.0-0.1 [facility] Comment on above: Performed By: #### C BC #### [facility] [address] [place] [address] Dr. Leni Hamlin Basophils/100 WBC (Bld) 0.3 % Normal 0.2-2.0 [facility] Comment on above: Performed By: #### C BC #### [facility] [address] [place] [address] Dr. Leni Hamlin EO # 0.0 103/ul Normal 0.0-0.7 [facility] Comment on above: Performed By: #### C BC #### [facility] [address] [address] [address] Leni Hamlin Eosinophils/100 WBC (Bld) 0.1 % Critically low 0.9-7.0 [facility] Comment on above: Performed By: #### C BC #### [facility] [address] [address] [address] Leni Hamlin Erythrocyte distribution width (RBC) [Ratio] 13.3 % Normal 11.0-15.0 [facility] Comment on above: Performed By: #### C BC #### [facility] [address] [address] [address] Leni Hamlin Hematocrit (Bld) [Volume fraction] 52.2 % Normal 42.0-54.0 [facility] Comment on above: Performed By: #### C BC #### [facility] [address] [place] [address] Dr. Leni Hamlin Hemoglobin (Bld) [Mass/Vol] 16.5 g/dL Normal 14.0-18.0 [facility] Comment on above: Performed By: #### C BC #### [facility] [address] [place] [address] Dr. Leni Hamlin IG # 0.19 10e3/ul Critically high 0.00-0.03 [facility] Comment on above: Performed By: #### C BC #### [facility] [address] [address] [address] Leni Hamlin IG % 1.0 % Critically high 0.0-0.5 [facility] Comment on above: Performed By: #### C BC #### [facility] [address] [address] [address] Leni Hamlin LYMPH # 0.8 103/ul Critically low 1.2-3.8 [facility] Comment on above: Performed By: #### C BC #### [facility] [address] [place] [address] Dr. Leni Hamlin Lymphocytes/100 WBC (Bld) 3.8 % Critically low 20.5-60.0 [facility] Comment on above: Performed By: #### C BC #### [facility] [address] [place] [address] Dr. Leni Hamlin MANUAL DIFF REQ NO Normal [facility] Comment on above: Performed By: #### C BC #### [facility] [address] [place] [address] Dr. Leni Hamlin MCH (RBC) [Entitic mass] 29.6 pg Normal 25.9-34.0 [facility] Comment on above: Performed By: #### C BC #### [facility] [address] [place] [address] Dr. Leni Hamlin MCHC (RBC) [Mass/Vol] 31.6 g/dL Normal 29.9-35.2 [facility] Comment on above: Performed By: #### C BC #### [facility] [address] [place] [address] Dr. Leni Hamlin MCV (RBC) [Entitic vol] 93.7 fL Normal 80.0-94.0 [facility] Comment on above: Performed By: #### C BC #### [facility] [address] [place] [address] Dr. Leni Hamlin MONO # 1.6 103/ul Critically high 0.3-0.8 [facility] Comment on above: Performed By: #### C BC #### [facility] [address] [place] [address] Dr. Leni Hamlin Monocytes/100 WBC (Bld) 8.3 % Normal 1.7-12.0 [facility] Comment on above: Performed By: #### C BC #### [facility] [address] [place] [address] Dr. Leni Hamlin NEUT # 17.0 103/ul Critically high 1.4-6.5 [facility] Comment on above: Performed By: #### C BC #### [facility] [address] [place] [address] Dr. Leni Hamlin Neutrophils/100 WBC (Bld) 86.5 % Critically high 43.0-75.0 [facility] Comment on above: Performed By: #### C BC #### [facility] [address] [place], [place] [address] Dr. Leni Hamlin Platelet mean volume (Bld) [Entitic vol] 10.0 fL Normal 9.5-13.5 [facility] Comment on above: Performed By: #### C BC #### [facility] [address] [address] [address] Leni Hamlin PLT 194 103/ul Normal 150-450 [facility] Comment on above: Performed By: #### C BC #### [facility] [address] [address] [address] Leni Hamlin RBC 5.57 106/ul Normal 4.70-6.10 [facility] Comment on above: Performed By: #### C BC #### [facility] [address] [address] [address] Leni Hamlin WBC 19.7 103/ul Critically high 4.0-11.0 [facility] Comment on above: Performed By: #### C BC #### [facility] [address] [place] [address] CSPINE WO CONon [...] CIERA HERNÁNDEZ Date: 2022-03-12 13:42 Normal [facility] CT HEAD WO CONon 03-12-2022 CT HEAD [...] SUSAN KC Date: 2022-03-12 13:20 Normal [facility] CTA CHEST WO W CONon 022 CTA [...] CIERAJOLLY HERNÁNDEZ Date: 2022-03-12 14:46 Normal [facility] CULTURE BLOODon 03-12-2022 Microscopic examination of blood, culture Culture Observations: NO GROWTH AT 5 DAYS. Normal [facility] Comment on above: Performed By: #### C MP, CRP #### [facility] [address] [address] [address] Leni Hamlin Microscopic examination of blood, culture Culture Observations: NO GROWTH AT 5 DAYS. Normal [facility] Comment on above: Performed By: #### C MP, CRP #### [facility] [address] [address] [address] Leni Hamlin Covid-19 PCR ([facility])on SARS-CoV-2 (COVID-19) RNA VENESSA+probe Ql (Unsp spec) Not detected Normal NOT DETECTED [facility] Comment on above: Result Comment: When diagnostic testing is negative, the possibility of a false negative should be considered in the context of a patient's recent exposures and the presence of clinical signs and symptoms consistent with SARS-CoV-2. This test is not yet approved or cleared by the [place] Food and Drug Administration (FDA). This test was developed by [employer], [place], [place]. The performance characteristics of this test were validated by [facility]. The results are not intended to be used as the sole means for clinical diagnosis or patient management decisions. The [facility] is authorized under Clinical Laboratory Improvement Amendments [...] for this test is supported by the [place] of Health and Human Service's declaration that [...] used). Performed By: #### C RP #### [facility] [address] [place] [address] Dr. Leni Hamlin D-DIMERon 03-12-2022 D-DIMER 6.00 mg/L FEU Critically high 0.19-0.50 [facility] Comment on above: Performed By: #### B MP, BNP #### [facility] [address] [place] [address] Dr. Leni Hamlin D-DIMER COMMENTS SEE BELOW Normal [facility] Comment on above: Result Comment: Incr [...] Performed By: #### B MP, BNP #### [facility] [address] [place] [address] Dr. Leni Hamlin ER URINE PROFILEon 2 Bilirubin Ql (U) Negative Normal NEGATIVE [facility] Comment on above: Performed By: #### C RP #### [facility] [address] [place] [address] Dr. Leni Hamlin Clarity (U) CLEAR Normal CLEAR [facility] Comment on above: Performed By: #### C RP #### [facility] [address] [place] [address] Dr. Leni Hamlin Color (U) YELLOW Normal YELLOW [facility] Comment on above: Performed By: #### C RP #### [facility] [address] [place] [address] Dr. Leni ELLIS A micrscopic examination will be performed if indicated. Normal [facility] Comment on above: Performed By: #### C RP #### [facility] [address] [place] [address] Dr. Leni Hamlin Glucose Ql (U) Negative Normal NEGATIVE [facility] Comment on above: Performed By: #### C RP #### [facility] [address] [place] [address] Dr. Leni Hamlin Hemoglobin Ql (U) SMALL Abnormal NEGATIVE [facility] Comment on above: Performed By: #### C RP #### [facility] [address] [place] [address] Dr. Leni Hamlin Ketones Ql (U) Negative Normal NEGATIVE [facility] Comment on above: Performed By: #### C RP #### [facility] [facility] [address] [place] [address] Dr. Leni Hamlin LEUKOCYTES Negative Normal NEGATIVE [facility] Comment on above: Performed By: #### C RP #### [facility] [address] [place] [address] Dr. Leni Hamlin Nitrite Ql (U) Negative Normal NEGATIVE [facility] Comment on above: Performed By: #### C RP #### [facility] [address] [place] [address] Dr. Leni Hamlin pH (U) 5.5 [pH] Normal 5-9 [facility] Comment on above: Performed By: #### C RP #### [facility] [address] [place] [address] Dr. Leni Hamlin SPEC GRAVITY <=1.005 Abnormal 1.005-<=1.025 [facility] Comment on above: Performed By: #### C RP #### [facility] [address] [place] [address] Dr. Leni Hamlin UA PROTEIN >300 Abnormal NEGATIVE/ TRACE [facility] Comment on above: Performed By: #### C RP #### [facility] [address] [place] [address] Dr. Leni Hamlin UR MICRO IND INDICATED Normal [facility] Comment on above: Performed By: #### C RP #### [facility] [address] [place] [address] Dr. Leni Hamlin Urobilinogen Qn (U) 0.2 {Stacy'U}/dL Normal 0.2 - 1. 0 [facility] Comment on above: Performed By: #### C RP #### [facility] [address] [place] [address] Dr. Leni Hamlin LACTATE/LACTIC ACIDon 2021 Lactate [Moles/Vol] 0.5 mmol/L Normal 0.4-2.0 [facility] Comment on above: Performed By: #### B MP, BNP #### [facility] [address] [place] [address] Dr. Leni Hamlin Lactate [Moles/Vol] 1.6 mmol/L Normal 0.4-2.0 [facility] Comment on above: Performed By: #### L ACT #### [facility] [address] [place] [address] Dr. Leni Hamlin PROF 14(COMP METB)on 022 Albumin [Mass/Vol] 3.1 g/dL Critically low 3.4-5.0 [facility] Comment on above: Performed By: #### B MP, BNP #### [facility] [address] [place] [address] Dr. Leni Hamlin Albumin/Globulin [Mass ratio] 0.8 {ratio} [facility] Comment on above: Performed By: #### B MP, BNP #### [facility] [address] [place] [address] Dr. Leni Hamlin ALP [Catalytic activity/Vol] 52 U/L Normal 46-116 [facility] Comment on above: Performed By: #### B MP, BNP #### [facility] [address] [place] [address] Dr. Leni Hamlin ALT [Catalytic activity/Vol] 27 U/L Normal 16-63 [facility] Comment on above: Performed By: #### B MP, BNP #### [facility] [address] [place] [address] Dr. Leni Hamlin Anion gap [Moles/Vol] 12.9 mmol/L Normal [facility] Comment on above: Performed By: #### B MP, BNP #### [facility] [address] [place] [address] Dr. Leni Hamlin AST [Catalytic activity/Vol] 14 U/L Critically low 15-37 [facility] Comment on above: Performed By: #### B MP, BNP #### [facility] [address] [place] [address] Dr. Leni Hamlin Bilirubin [Mass/Vol] 1.2 mg/dL Critically high 0.2-1.0 [facility] Comment on above: Performed By: #### B MP, BNP #### [facility] [address] [place] [address] Dr. Leni Hamlin Calcium [Mass/Vol] 8.2 mg/dL Critically low 8.5-10.1 Th e [facility] Comment on above: Performed By: #### B MP, BNP #### [facility] [address] [place] [address] Dr. Leni Hamlin Chloride [Moles/Vol] 99 mmol/L Normal 98-107 [facility] Comment on above: Performed By: #### B MP, BNP #### [facility] [address] [place] [address] Dr. Leni Hamlin CO2 [Moles/Vol] 28.4 mmol/L Normal 21.0-32.[address] [facility] Comment on above: Performed By: #### B MP, BNP #### [facility] [address] [place] [address] Dr. Leni Hamlin Creatinine [Mass/Vol] 1.44 mg/dL Critically high 0.70-1.30 [facility] Comment on above: Performed By: #### B MP, BNP #### [facility] [address] [place] [address] Dr. Leni Hamlin EGFR-AF JORDANIAN 58 mL/min/1.73m2 Critically low >=60 [facility] Comment on above: Performed By: #### B MP, BNP #### [facility] [address] [place] [address] Dr. Leni Hamlin EGFR-NON AF JORDANIAN 48 mL/min/1.73m2 Critically low >=60 [facility] Comment on above: Performed By: #### B MP, BNP #### [facility] [address] [address] [address] Leni Hamlin Globulin (S) [Mass/Vol] 3.8 g/dL Normal [facility] Comment on above: Performed By: #### B MP, BNP #### [facility] [address] [place] [address] Dr. Leni Hamlin Glucose [Mass/Vol] 137 mg/dL Critically high 74-106 [facility] Comment on above: Performed By: #### B MP, BNP #### [facility] [address] [place] [address] Dr. Leni Hamlin Potassium [Moles/Vol] 4.3 mmol/L Normal 3.5-5.1 [facility] Comment on above: Performed By: #### B MP, BNP #### [facility] [address] [place] [address] Dr. Leni Hamlin Protein [Mass/Vol] 6.9 g/dL Normal 6.1-8.2 [facility] Comment on above: Performed By: #### B MP, BNP #### [facility] [address] [place] [address] Dr. Leni Hamlin Sodium [Moles/Vol] 136 mmol/L Normal 136-145 [facility] Comment on above: Performed By: #### B MP, BNP #### [facility] [address] [place] [address] Dr. Leni Hamlin Urea nitrogen [Mass/Vol] 15.0 mg/dL Normal 7.0-18.0 [facility] Comment on above: Performed By: #### B MP, BNP #### [facility] [address] [place] [address] Dr. Leni Hamlin Urea nitrogen/Creatinine [Mass ratio] 10.4 mg/mg Normal [facility] Comment on above: Performed By: #### B MP, BNP #### [facility] [address] [place] [address] Dr. Leni Hamlin PROTIMEon 03-12-2022 INR Coag (PPP) [Relative time] 1.07 {INR} Normal [facility] Comment on above: Performed By: #### B MP, BNP #### [facility] [address] [place] [address] Dr. Leni Hamlin INR GUIDELINES SEE BELOW Normal [facility] Comment on above: Result Comment: WAQAS RED INR: 2.0 - 3.0 CONDITIONS NOT LISTED BELOW 2.5 - 3.5 FOR PROSTHETIC HEART VALVE REPLACEMENT 2.5 - 3.5 RECURRENT THROMBOSIS Performed By: #### B MP, BNP #### [facility] [address] [place] [address] Dr. Leni Hamlin PT Coag (PPP) [Time] 11.5 s Normal 9.0-11.6 [facility] Comment on above: Performed By: #### B MP, BNP #### [facility] [address] [place] [address] Dr. Leni Hamlin TROPONIN, HIGH SENSITIVITYon 03-12-2022 HSTROP 12.8 pg/mL Normal 4.0-76.1 [facility] Comment on above: Result Comment: CUT- OFF POINTS HAVE BEEN ESTABLISHED BASED ON THE FOURTH UNIVERSAL DEFINITIONS OF MYOCARDIAL INFARCTION. THE UPPER REFERENCE LIMIT (URL) OF TROPONIN, DEFINED THE 99TH PERCENTILE OF cTnI DISTRIBUTION IN A REFERENCE POPULATION, HAS BEEN CONFIRMED THE DECISION THRESHOLD FOR WA DIAGNOSIS. Performed By: #### B MP, BNP #### [facility] [address] [place] [address] Dr. Leni Hamlin URINE MICROSCOPIC ONLYon BACTERIA NONE SEEN Normal NONE SEEN [facility] Comment on above: Performed By: #### C RP #### [facility] [address] [place] [address] Dr. Leni Hamlin Bacteria identified Cx Nom (U) NOT INDICATED Normal [facility] Comment on above: Performed By: #### C RP #### [facility] [address] [place] [address] Dr. Leni Hamlin CAST NONE SEEN Normal NONE SEEN [facility] Comment on above: Performed By: #### C RP #### [facility] [address] [place] [address] Dr. Leni Halmin Crystals LM Nom (Urine sed) NONE SEEN Normal NONE SEEN [facility] Comment on above: Performed By: #### C RP #### [facility] [address] [place] [address] Dr. Leni Hamlin Epithelial cells LM Ql (Urine sed) NONE SEEN Normal NONE SEEN /RARE [facility] Comment on above: Performed By: #### C RP #### [facility] [address] [place] [address] Dr. Leni Hamlin MUCOUS MODERATE Abnormal NONE SEEN [facility] Comment on above: Performed By: #### C RP #### [facility] [address] [place] [address] Dr. Leni Hamlin RBC 2-5 Abnormal 0-2 [facility] Comment on above: Performed By: #### C RP #### [facility] [address] [place] [address] Dr. Leni Hamlin WBC NONE SEEN Normal NONE SEEN [facility] Comment on above: Performed By: #### C RP #### [facility] [address] [place] [address] Dr. Leni Hamlin XR RIBS RT PA [...] CIERA HERNÁNDEZ Date: 2022-03-12 13:35 Normal [facility] Covid-19 PCR (CVDTBH)on 01-09 SARS-CoV-2 (COVID-19) RNA VENESSA+probe Ql (Unsp spec) Not detected Normal NOT DETECTED [facility] Comment on above: Result Comment: This test is not yet approved or cleared by the [place] FDA. When there are no FDA-approved or cleared tests available, and other criteria are met, FDA can make tests available under an emergency access mechanism called an Emergency Use Authorization (EUA). The EUA for this test is supported by the [place] of Health and Human Service's (HHS's) declaration [...] SARS-CoV-2. Performed By: #### C RP #### [facility] [address] [place] [address] Dr. Leni Hamlin INFLUENZA A AND B [facility] 01-25 [facility] SEE BELOW Normal [facility] Comment on above: Result Comment: Nega tive for Flu A protein angiten. Infection due to Flu A cannot be ruled out. Flu A angiten in the sample may be below the detection limit of the test. Performed By: #### C RP #### [facility] [address] [place] [address] Dr. Leni Ham[facility] BEL[facility] Normal [facility] Comment on above: Result Comment: Nega tive for Flu B protein antigen. Infection due to Flu B cannot be ruled out. Flu B antigen in the sample may be below the detection limit of the test. Performed By: #### C RP #### [facility] [address] [place] [address] Dr. Leni Hamlin INFLUENZA A AG Negative Normal NEGATIVE SEE COMMENT [facility] Comment on above: Performed By: #### C RP #### [facility] [address] [place] [address] Dr. Leni Hamlin INFLUENZA B AG Negative Normal NEGATIVE SEE COMMENT [facility] Comment on above: Performed By: #### C RP #### [facility] [address] [place] [address] Dr. Leni Hamlin INTERNAL CONTROLS Within Normal Limits Normal Wi thin Normal Limits [facility] Comment on above: Performed By: #### C RP #### [facility] [address] [place] [address] Dr. Leni Hamlin COVID-19 Antigenon 2 COVID-19 [...] its performance Cindy Disclaimer characteristic determined by [employer] and Cindy Disclaimer validated at [facility]. This Cindy Disclaimer test has not been [...] is terminated or revoked sooner. PERFORMED BY: [place] [address] PATHOLOGIST PUZZLE ASSEMBLER ZOHAIB JEWELL M.D. Normal [facility] Comment on above: Performed By: #### C OVID-19 CINDY, SOFIANEG #### [place] [id number] [facility] Cindy Ag Negativeon 12-01-19 22 Cindy Ag Negative Negative Normal Negative [facility] Comment on above: Result Comment: This is a duplicate Cindy SARS Antigen (JENNIFER) result to be used for statistical tracking purpose only. PERFORMED BY: [place] [id number] PATHOLOGIST PUZZLE ASSEMBLER ZOHAIB JEWELL M.D. Performed By: #### C OVID-19 CIDNY, SOFIANEG #### [place] [id number] [facility] Encounters Encounter Date Encounter Type Care Provider Facility Start: 12-30-2023 End: 12-31-2023 ambulatory Urvashi Rawls MD Facility:[facility] Start: 09-16-2023 End: 09-17-2023 ambulatory Urvashi Rawls MD Facility: [facility] Start: 08-27-2023 End: 08-27-2023 ambulatory [facility] Start: 07-09-2023 End: 07-09-2023 ambulatory [facility] Start: 06-24-2023 End: 06-25-2023 ambulatory Urvashi Stitis Facility: [facility] Start: 06-10-2023 End: 06-11-2023 ambulatory Urvashi Stitis Facility: [facility] Start: 05-27-2023 End: 05-28-2023 ambulatory Urvashi Stitis Facility: [facility] Start: 05-13-2023 End: 05-13-2023 ambulatory [facility] Start: 05-08-2023 ambulatory [facility] Start: 04-09-2023 End: 04-09-2023 ambulatory [facility] Start: 03-29-2023 End: 03-30-2023 ambulatory [facility] Start: 03-26-2023 End: 03-27-2023 ambulatory [facility] Start: 03-26-2023 End: 03-26-2023 ambulatory [facility] Start: 03-15-2023 End: 03-16-2023 ambulatory [facility] Start: 02-27-2023 End: 02-28-2023 ambulatory [facility] Start: 01-31-2023 End: 02-01-2023 ambulatory [facility] Start: 01-16-2023 End: 01-16-[address] ELLIOT CHESTER . Facility:[facility] Start: 12-27-[address] ELLIOT CHESTER . Facili ty:[facility] Start: 12-18-2022 End: 12-18-[address] CLIFTON JHAVERI Facility:[facility] Start: 11-07-2022 End: 11-07-2022 ambulatory [facility] Start: 10-22-2022 End: 10-22-2022 ambulatory MODESTO BECERRA [facility] Start: 10-01-2022 End: 10-03-2022 Evaluation and management [...] Start: 03-22-2022 End: 03-23-2022 ambulatory MODESTO BECERRA Facility:[facility] Start: 03-20-2022 End: 03-21-[address] ELLIOT CHESTER . Facility:[facility] Start: 03-13-2022 End: 03-15-2022 Evaluation and management of inpatient DR ELLIOT CHESTER . Facility:[facility] Start: 01-25-2022 End: 01-25-2022 ambulatory GAGANDEEP PAREDES Facility:[facility] Payers Date Payer Category Payer Medicare 2022 Unknown 1961 Medicare [id number] 1961 Self-pay 1959 Unknown [id number] 1948 Unknown [id number] 2.16.8 [id number] 1948 Unknown [id number] 2.16.84 0.1.454306.3.579.2.593 1948 Unknown [id number] 2.16.84 0.1.310148.3.579.2.593 1948 Unknown [id number] 2.16.84 0.1.700527.3.579.2.593 1948 Unknown [id number] 2.16.84 0.1.244853.3.579.2.593 1948 Unknown [id number] 2.16.84 0.1.627836.3.579.2.593 1948 Unknown [id number] 2.16.84 0.1.195162.3.579.2.593 1948 Unknown [id number] 2.16.84 0.1.044424.3.579.2.593 1948 Unknown [id number] 2.16.84 0.1.129793.3.579.2.593 1948 Unknown [id number] 2.16.84 0.1.007020.3.579.2.593 1948 Unknown [id number] 2.16.84 0.1.376511.3.579.2.593 1948 Unknown [id number] 2.16.84 0.1.349765.3.579.2.593 1948 Unknown [id number] 2.16.84 0.1.431717.3.579.2.593 1948 Unknown [id number] 2.16.84 0.1.920993.3.579.2.593 1948 Unknown [id number] 2.16. 840.1.857575.3.579.2.196 1948 Unknown [id number] 2.16. 840.1.483864.3.579.2.196 1948 Unknown [id number] 2.16. 840.1.926607.3.579.2.196 1948 Unknown [id number] 2.16. 840.1.814528.3.579.2.196 1948 Unknown [id number] 2.16. 840.1.330611.3.579.2.196 Clinical Notes 03-23-2022 to 08-27-2023 Note Date [...] $[address] a [address] [facility]. Lipid profile was done in May 2023. Review of Systems Constitutional: Positive for malaise/fatigue. Musculoskeletal: Positive for arthritis, back pain, joint pain, muscle weakness and myalgias. Neurological: Positive for numbness. All other systems reviewed and are negative. [facility] 05-13-2023 Note Patient here c/o LE numbness and pain during ambulation and standing. He had EMG and SAGAR's in March 2023. He sees Dr. Chester this afternoon. Recently saw neurosurgery and vascular surgery at [facility]. Dr. Quinonez started him on low dose aspirin and atorvastatin last week, which he states he has not started yet. He denies chest pain, SOB, and syncope. Review of Systems Constitutional: Positive for malaise/fatigue. Cardiovascular: Positive for claudication and leg swelling. Musculoskeletal: Positive for arthritis, back pain, muscle weakness and myalgias. All other systems reviewed and are negative. [facility] 05-13-2023 Note [facility] Cardiology Note [facility] Reason for visit: lower extremity claudication [...] was initiated by the patient and conducted [id number] with use of audio-only real time telephone [...] night many times (more content not included)... [facility] 05-08-2023 Note This is a 73-year-ol d [...] will see him in about 3 months. [facility] 05-08-2023 Note HPI Brian Oneal is a [...] being on aspirin (more content not included)... 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 He undertook some type of decompressive surgery [...] Final Atrial Rate 03/22/2022 76 BPM Final RI Interval 03/22/2022 162 ms Final QRS DURATION 03/22/2022 144 ms Final QT Interval 03/22/2022 392 ms Final QTC CALCULATION(BAZETT) 03/22/2022 441 ms Final P Barney 03/22/2022 -14 degrees Final R-Barney 03/22/2022 -20 degrees Final T Wave Barney 03/22/2022 -6 degrees Final Diagnosis 03/22/2022 Final [...] No definite e (more content not included)... [facility] 03-26-2023 Note Neurosurgery Consult Chief Complaint: Back and leg pain. History of Present Illness: Brian Oneal is a 72 y.o. male who presents in kind referral from Dr. Chester for evaluation of lumbar degenerative disease with back and leg pain. 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 He undertook some type of decompressive surgery [...] Value Ref Range (more content not included)... [facility] 11-12-2022 Note -s/p PPM -no concerns on device check, 45% RA paced, 7% RV paved -no concerns at this time for pacing induced cardiomyopathy [facility] 11-12-2022 Note -this is chronic, he does not want to start a diuretic at this time -discussed pending his results from the echo he will have sent over we may need to start some sort of diuretic such as thiazide, MRA, and any additional medications indicated [facility] 11-12-2022 Note -no concerns on sallie ce check -follow up with device check in 6 months [facility] 11-07-2022 Note Patient here for 6 m o follow up sick sinus syndrome and sinus bradycardia. His device was interrogated in the office 2 weeks ago. He was admitted to [facility] last month for c diff. Feeling much better. Denies chest pain, SOB, and palpitations. Was not able to tolerate cpap machine. Review of Systems Constitutional: Positive for malaise/fatigue. Musculoskeletal: Positive for arthritis, back pain, muscle weakness and myalgias. All other systems reviewed and are negative. [facility] 11-07-2022 Note [facility] Cardiology Note [facility] Reason for visit: 6 month follow [...] states he recently admitted for c-diff at [facility] after recently being on antibiotics, he [...] was initiated by the patient and conducted [id number] with use of audio-only real time telephone [...] been officially ev (more content not included)... [facility] 03-23-2022 Note EXAM: XR CHEST 2 V [...] section and content) DATE CREATED AUTHOR 01/29/2022 [facility] DATE CREATED AUTHOR AUTHOR'S ORGANIZ ATION 04/23/2022 [facility] DATE CREATED AUTHOR AUTHOR'S ORGANIZ ATION 01/18/2023 [facility] DATE CREATED AUTHOR AUTHOR'S ORGANIZ ATION 08/28/2023 [facility] DATE CREATED AUTHOR AUTHOR'S ORGANIZ ATION 01/10/2024 [facility] FOR RECORDS PERTAINING TO PATIENTS [...] BE BASED ON THE PRIMARY CLINICAL RECORDS. [facility] [employer] [facility]. provides no warranty or guarantee of the accuracy or completeness of information in this document.
[2024-01-27 11:14] VITALS: BP 144/89; PULSE 77; RESP 16; TEMP 36.4; O2SAT 96
[2024-01-27 11:36] VITALS: BP 186/86; PULSE 75; RESP 18; O2SAT 98
[2024-01-27 11:38] VITALS: BP 173/103; PULSE 74; RESP 18; O2SAT 98
--- NOTE | 2024-01-27 11:40 | W.PM.PROCNOT ---
Date of procedure: 01/27/24 Pre-op diagnosis: Lumbar spondylosis Post-op diagnosis: same as pre-op Procedure: Procedure: Bilateral L4-5, L5-S1 medial branch block Medications: Bupivacaine 0.25% 6cc The patient was seen and examined in the preoperative holding area.? An informed consent was obtained and placed on the chart.? The patient was brought to the medical procedure unit and placed in the prone position.? A timeout was completed verifying correct patient, procedure site, positioning, plan, and special equipment.? Using aseptic technique, the needle was placed at left L4. Under direct fluoroscopic visualization a Quincke-tipped spinal needle was advanced to the junction of the superior articulating process with the transverse process at the designated medial branch segment.? Preceded by negative aspiration, the above-mentioned injectate was placed in 1 mL aliquots.? The procedure was repeated at left L5, S1.? The needle was removed and insertion site was covered. The same procedure, at the same levels, was completed on the right side. The patient was taken to the postprocedural recovery area and monitored for an appropriate length of time before found suitable for discharge in the company of a responsible adult. Surgeon: Urvashi Rawls Pathology: none sent Condition: stable Disposition: no change
[2024-01-27] MEDS: BUPIVACAINE HCL 0.25% PF 25 MG/10 ML VIAL 8 ML INJ (11:41)
[2024-01-27] MEDS: LIDOCAINE HCL 2% PF 100 MG/5 ML VIAL 1.5 ML INJ (11:42)
== END 2024-01-27 11:46 | disposition home or self-care (01) ==
PROVIDERS: PCP Family Medicine; Visit Provider Anesthesiology
DX: M47.816 Spondylosis without myelopathy or radiculopathy, lumbar region (principal)
CPT/HCPCS: 64493; 64494

== ENCOUNTER 2024-02-05 13:23 | Outpatient (OUT) | payer MEDICARE, OTHER, SELFPAY ==
--- NOTE | 2024-02-05 13:31 | P.CN_ITS ---
Consult Note: HPI Data of Consult Patient: known to practice within the last 3 years Requesting Physician: Gisele Rodriguez NP Primary Care Provider: Jaron Chester MD Consult Narrative Reason for consult: f/u Narrative: Brian Oneal a pleasant 73 year old male presents for evaluation and management of low back pain. 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 Pain today 0/10 increasing to 8/10 with bending twisting and activity, AHMET 16%. Patient continues to have moderate to severe pain that is radiating in right low back and to right thigh stopping at his knee, increased with activity, standing, walking. Patient recently Patient continues to have significant pain with activity, walking, and climbing. recently underwent bilateral L4-5 L5-S1 facet medial branch block #1 with >80% improvement in pain and functional ability 1 day. cc:: CC: Gisele Rodriguez NP Review of Systems ROS Status of ROS 10 or more systems reviewed and unremark able except as noted in history and below Musculoskeletal Reports: back pain PFSH PFSH Medical History Low back pain ?M54.50 - Low back pain, unspecified (ICD-10) Glaucoma ?H40.9 - Unspecified glaucoma (ICD-10) H/O prostate cancer ?Z85.46 - Personal history of malignant neoplasm of prostate (ICD-10) Numbness and tingling ?R20.0 - Anesthesia of skin (ICD-10) ?R20.2 - Paresthesia of skin (ICD-10) Former smoker ?Z87.891 - Personal history of nicotine dependence (ICD-10) Irregular heart beat ?I49.9 - Cardiac arrhythmia, unspecified (ICD-10) Hypertension ?I10 - Essential (primary) hypertension (ICD-10) Pacemaker ?Z95.0 - Presence of cardiac pacemaker (ICD-10) Surgical History H/O lumbosacral spine surgery ?Z98.890 - Other specified postprocedural states (ICD-10) History of appendectomy ?Z90.49 - Acquired absence of other specified parts of digestive tract (ICD- 10) Meds Home Medications and Allergies Home Medications ?Medication ?Instructions ?Recorded ?Confirmed ?Type amlodipine 5 mg tablet 5 mg PO .QD 05/27/23 01/27/24 History gabapentin 100 mg capsule 100 mg PO .HS 05/27/23 01/27/24 History tizanidine 4 mg tablet 8 mg PO .HS 05/27/23 01/27/24 History gabapentin 300 mg capsule 300 mg PO DAILY 01/27/24 01/27/24 History Allergies Allergy/AdvReac Type Severity Reaction Status Date / Time Z PACK Allergy Uncoded 01/27/24 11:12 Exam Constitutional Documenting provider has reviewed patient's vital signs: yes Common normals: no apparent distress, oriented x3, healthy appearing, alert and well nourished General appearance: cooperative HENHI Common normals: normocephalic, hearing grossly normal bilaterally and moist oral mucous membranes Head and scalp: normocephalic Eye Common normals: PERRL Pupil: PERRL Neck & C-Spine Common normals: full ROM General: normal visual inspection Chest Common normals: inspection of chest normal Respiratory Common normals: normal respiratory effort, no retractions and no use of accessory muscles Back & Pelvis Thoracic spine/upper back: ROM limited Lumbar spine/lower back: ROM limited, pain with ROM (mild) and straight leg raise negative bilaterally Sacroiliac joints: SI joints normal Other: positive facet loading no radiculopathy on exam sensation intact BLE Extremity Common normals: normal to inspection, full ROM, no calf tenderness and no pedal edema Neuro Common normals: oriented x3, CN's II-XII intact bilaterally, moves all extremities, no focal motor deficits, no sensory deficits noted and deep tendon reflexes 2+ bilaterally Sensorium/orientation: alert Motor exam: strength 5/5 throughout and no movement abnormalities noted Psych Common normals: mental status grossly normal, thought process normal, cooperative, affect normal, speech normal and activity/motor behavior normal Speech: normal speech Thought process: normal thought process Results Additional Findings Additional findings: If on a controlled substance or opioids, I have checked an [place] report on this patient and there are no aberrancies noted in the prescribing history.??If on a controlled substance or opioid a drug screen was completed and reviewed within the last year, and if there has not been a drug screen completed we ordered one today to monitor higher risk, state monitored pain medication use. As part of providing excellent, safe, comprehensive care, the following was completed at our patient's visit: 1. A medication reconciliation and review to ensure accurate knowledge of current/active medications, including asking our patients to inform us about any [id number] medications or herbal remedies/nutritional supplements/alternative remedies. 2. A review to specifically ensure our patients have had annual screening for screening for depression, screening for tobacco use, and screening for unhealthy alcohol use. For concerning screenings had a discussion with the patient, provided patient education, and recommended follow-up with primary care provider when appropriate. If patient noted with a risk of falling, they received education on strength, gait, and balance training to prevent future risk of falling. Assessment and Plan Assessment and Plan (1) Lumbar spondylosis: Assessment and Plan: The patient has had over 3 months of moderate to severe low back pain with functional impairment and inadequate response to conservative care including NSAIDS (unless there are contraindication such as concurrent blood thinners), multiple oral or topical pain medications, and home exercise program/physical therapy.? Patient has completed >6 weeks of guided home exercise program and/or formal physical therapy program without relief of their symptoms.? I have reviewed the imaging of the lumbar spine and no red flags were identified.? The imaging reveals radiographic findings consistent with lumbar spondylosis We discussed the risks and benefits of the procedure with the patient, and we are NOT planning on using sedation as outlined in the guidelines from Medicare unless there is a documented reason that sedation would be strongly recommended.?? ?The procedure will be completed with fluoroscopic guidance.? (2) Lumbar stenosis with neurogenic claudication: Plan bilateral L4-5 L5-S1 facet medial branch block x2 working towards RFA for chronic low back pain unresponsive to PT/HEP and conservative measures consider vertiflex/spinal cord stimulator in the future however patient very active and I do not think he could avoid bending twisting of lifting for recovery periods of either procedure with his current work continue current medications f/u 1 week after injection
== END 2024-02-05 13:24 | disposition home or self-care (01) ==
LOC: PM 13:23
PROVIDERS: PCP Family Medicine; Visit Provider Nurse Practitioner
DX: M47.816 Spondylosis without myelopathy or radiculopathy, lumbar region (principal); M48.062 Spinal stenosis, lumbar region with neurogenic claudication
CPT/HCPCS: G0463

== ENCOUNTER 2024-03-02 07:45 | Day surgery (SDC) | payer MEDICARE, OTHER, SELFPAY ==
--- OUTSIDE RECORDS SUMMARY | 2024-03-02 07:49 | XMS_ITS | CCD ---
[facility] Team Providers Care Model Builder Display Name Role Phone MODESTO BECERRA Admitting Unavailable MODESTO BECERRA Attending Unavailable SELF, REFERRED Referring Unavailable ELLIOT CHESTER Primary Care Unavailable MODESTO BECERRA Consulting Unavailable HOY ., DR ZARATE Primary Care Unavailable MODESTO [...] RAJESH Consulting Unavailable GAGANDEEP PAREDES Consulting Unavailable CHANTALY ., DR ZARATE Primary Care Unavailable GAGANDEEP PAREDES Attending Unavailable GAGANDEEP PARDEES Admitting Unavailable HOY ., DR ZARATE Primary Care Unavailable HOY ., DR ZARAET Attending Unavailable HOY ., DR ZARATE Admitting Unavailable HOY ., DR ZARATE Primary Care Unavailable HOY ., DR ZARATE Attending Unavailable HOY ., DR ZARATE Admpia Unavailable REINECK, DR CLIFTON Kang Consulting Unavailabl e REINECK, DR CLIFTON Kang Attending Unavailabl e REINECK, DR CLIFTON Kang Admitting Unavailabl e HOY ., DR ZARATE Primary Care Unavailable EDGAR, DR CIERA Eric Consulting Unavailable GREGG ., MARYAM TREVINO Consulting Unavailabl e HOY ., DR ZARATE Consulting Unavailable HOY ., DR ZARATE Attending Unavailable HOY ., DR ZARATE Admpia Unavailable HOY ., DR ZARATE Primary Care Unavailable SUSAN KC Consulting Unavailable RACHNA, JATIN Consulting Unavailable EDGAR, DR CIERA Eric Consulting Unavailable ALPHONSE .AYALA Consulting Unavailable HOY ., DR ZARATE Primary Care Unavailable HOY ., DR ZARATE Attending Unavailable HOY ., DR ZARATE Admitting Unavailable HOY ., DR ZARATE Consulting Unavailable HOY ., DR ZARATE Primary Care Unavailable HOY ., DR ZARATE Attending Unavailable HOY ., DR ZARATE Admitting Unavailable REGGIE, GAGANDEEP Consulting Unavailable HOY ., DR ZARATE Primary [...] Unavailable HOY ., DR ZARATE Admitting Unavailable Giedraitis , Andrius Marinelli Attending Unavailable Giedraitis , Andrius Yves Attending Unavailable Giedraitis , Andrius Vytgianna Attending Unavailable Giedraitis , Andrius Vytautclaritza Attending Unavailable Giedraitis , Andrius Vebenezerautclaritza Attending Unavailable Giedraitis , Andrius Vytautclaritza Attending Unavailable ALGHOTHANI, MOHAMAD Attending Unavailable ALGHOTHANI, MOHAMAD Attending Unavailable MODESTO BECERRA Referring Unavailable ALGHOTHANI, MOHAMAD Attending Unavailable THELMA, RADU Referring Unavailable THELMA, RADU Referring Unavailable HOY, ELLIOT Referring Unavailable THELMA, RADU Referring Unavailable THELMA, RADU Attending Unavailable JONAS, MOHAMED Attending Unavailable THELMA, RADU Referring Unavailable THELMA, RADU Attending Unavailable MODESTO BECERRA Referring Unavailable Allergies Allergy Classification Reported Allergen(s) Allergy Type Date of Onset Reaction(s) Facility (2 sources) Azithromycin; Translations: [AZITHROMYCIN] Drug Allergy 03-22-2022 [facility] Repository (2 sources) Azithromycin Drug Allergy 03-03-2015 [facility] Repository (1 source) Ciprofloxacin Drug Allergy 12-18-2022 [facility] Repository Problems Active Problems Problem Classification Problem Date Documented Da te Episodic/Chronic Calculus of urinary tract (1 source) Personal history of urinary calculi; Translations: [PERSONAL HISTORY OF URINARY CALCULI] Onset: 12-20-2022 Episodic Cancer of prostate (1 source) Malignant neoplasm of prostate; Translations: [MALIGNANT NEOPLASM OF PROSTATE] Onset: 12-20-2022 Chronic Coagulation and hemorrhagic disorders (1 source) [...] unspecified; Translations: [Peripheral vascular disease, unspecified] Onset: 03-29-2023 Chronic Residual codes; unclassified (5 sources) Obstructive [...] 10-01-2022 Episodic Other aftercare (1 source) Other care associate (current) drug therapy; Translations: [OTH ASSISTED LIVING COORDINATOR CURRENT DRUG THERAPY] Onset: 03-19-2022 Episodic Pneumonia [...] Value Interpretation Reference Range Facility Office Visiton 08-27-2023 Follow-up visit [id number] JmMarijaWayne s A 1950 M Date Provider Department Center 08/27/2023 MAJOR ALMEIDA Family History Problem Relation Age of Onset Coronary artery disease Mother Family Status - Relation Status Age at Mother Level of Service:92614 AR OFFICE/OUTPATIENT ESTABLISHED LOW MDM 20-29 MIN Normal [facility] Office Visiton 05-13-2023 Follow-up visit [id number] JmWayne coon Jesus 1950 M Date Provider Department Center 05/13/2023 MAJOR ALMEIDA Family History Problem Relation Age of Onset Coronary artery disease Mother Family Status - Relation Status Age at Mother Level of Service:21749 AR OFFICE/OUTPATIENT ESTABLISHED MOD MDM 30-[address] [facility] Orders Onlyon 05-13-2023 Orders Only [id number] Wayne Oneal A 1950 Date Provider Department Center 05/13/2023 Royal-BRAYAN AU CARD [facility] Family History Problem Relation Age of Onset Coronary artery disease Mother Family Status - Relation Status Age at Mother [facility] 29on 05-08-2023 27 Addended by: LEANA HENNING on: 05/09/2023 01:46 PM Modules accepted: Orders [facility] Consulton 05-08-2023 Consult [id number] Wayne Oneal A 1950 Date Provider Department Center 05/08/2023 384-JOSE QUINONEZ HVCVASENDO ND [facility] Family History Problem Relation Age of Onset Coronary artery disease Mother Family Status - Relation Status Age at Mother Level of Service:24841 AR OFFICE/OUTPATIENT NEW MODERATE MDM 45-59 MINUTES Reason for Visit and Comments: New Patient [632] - Numbness in bilateral legs [facility] Follow-Upon 04-09-2023 Follow-Up [id number] Wayne Oneal A 1950 Date Provider Department Center 04/09/2023 RADU QUEVEDO [facility] SURG Second Fl Family History Problem Relation Age of Onset Coronary artery disease Mother Family Status - Relation Status Age at Mother Level of Service:85995 AR OFFICE/OUTPATIENT ESTABLISHED LOW MDM 20-29 MIN Reason for Visit and Comments: Follow-up [283020] - follow up s/p SAGAR, XR; When patient bends over it tends to pull his back muscles and when he gets back up he is in pain. Walking a long distance he is in lots of pain. [facility] 36on 04-02-2023 36 Pt was called and scheduled a follow up with Dr. Renee to review results. [facility] 36 Brian is asking fo r an answer to left lower back pain. Had the US done and is not having any relief in his back. [facility] Telephoneon 04-02-2023 Telephone [id number] Wayne Oneal 1950 M Date Provider Department Center 04/02/2023 [id number]-DARRIUSGERTRUDE TRACI [facility] SURG Second Fl Family History Problem Relation Age of Onset Coronary artery disease Mother Family Status - Relation Status Age at Mother Normal [facility] Consulton 03-26-2023 Consult [id number] Wayne Oneal A 1950 M Date Provider Department Center 03/26/2023 [id number]-RADU RENEE [facility] SURG Second Fl Family History Problem Relation Age of Onset Coronary artery disease Mother Family Status - Relation Status Age at Mother Level of Service:30854 AR OFFICE/OUTPATIENT NEW MODERATE MDM 45-59 MINUTES Reason for Visit and Comments: Consult [484] - Pt is here for a CO visit for Osteophyte. Normal [facility] MR LUMBAR SPINE W AND WO [...] previous results Electronically signed: Asher Tomlinson. Normal [facility] Comment on above: Order Comment: Order in [facility] Covid-19 PCR (CVDTB)on SARS-CoV-2 (COVID-19) RNA VENESSA+probe Ql (Unsp spec) Not detected Normal NOT DETECTED [facility] Comment on above: Result Comment: When diagnostic [...] for this test is supported by the [employer] of Health and Human Service's declaration that [...] Performed By: #### B MP, BNP #### [facility] Laboratory [address] [place] [address] Dr. Leni Hamlin INFLUENZA A [facility] Normal [facility] Comment on above: Result Comment: Nega tive for Flu A protein angiten. Infection due to Flu A cannot be ruled out. Flu A angiten in the sample may be below the detection limit of the test. Performed By: #### C RP #### [facility] [address] [place] [address] Dr. Leni Hamlin INFLUBNEG SEE BELOW Normal [facility] Comment on above: Result Comment: Nega tive for Flu B protein antigen. Infection due to Flu B cannot be ruled out. Flu B antigen in the sample may be below the detection limit of the test. Performed By: #### C RP #### [facility] [address] [place] [address] Dr. Leni Hamlin INFLUENZA A AG Negative Normal NEGATIVE SEE COMMENT [facility] Comment on above: Performed By: #### C RP #### [facility] [address] [place] [address] Dr. Leni Hamlin INFLUENZA B AG Negative Normal NEGATIVE SEE COMMENT [facility] Comment on above: Performed By: #### C RP #### [facility] [address] [address] LSPINE WO CONon [...] appreciable acute abnormality. Electronically authenticated by: CIERA HRENÁNDEZ Date: 2022-12-18 15:56 Normal [facility] CBC AUTO DIFFon 10-03-2022 BASO # 0.1 103/ul Normal 0.0-0.1 [facility] Comment on above: Performed By: #### B MP, BNP #### [facility] [address] [place] [address] Dr. Leni Hamlin Basophils/100 WBC (Bld) 0.5 % Normal 0.2-2.0 [facility] Comment on above: Performed By: #### B MP, BNP #### [facility] [address] [place] [address] Dr. Leni Hamlin EO # 0.3 103/ul Normal 0.0-0.7 [facility] Comment on above: Performed By: #### B MP, BNP #### [facility] [address] [place] [address] Dr. Leni Hamlin Eosinophils/100 WBC (Bld) 2.2 % Normal 0.9-7.0 [facility] Comment on above: Performed By: #### B MP, BNP #### [facility] [address] [place] [address] Dr. Leni Hamlin Erythrocyte distribution width (RBC) [Ratio] 13.3 % Normal 11.0-15.0 [facility] Comment on above: Performed By: #### B MP, BNP #### [facility] [address] [place] [address] Dr. Leni Hamlin Hematocrit (Bld) [Volume fraction] 46.9 % Normal 42.0-54.0 [facility] Comment on above: Performed By: #### B MP, BNP #### [facility] [address] [place] [address] Dr. Leni Hamlin Hemoglobin (Bld) [Mass/Vol] 15.3 g/dL Normal 14.0-18.0 [facility] Comment on above: Performed By: #### B MP, BNP #### [facility] [address] [place] [address] Dr. Leni Hamlin IG # 0.18 10e3/ul Critically high 0.00-0.03 [facility] Comment on above: Performed By: #### B MP, BNP #### [facility] [address] [place] [address] Dr. Leni Hamlin IG % 1.3 % Critically high 0.0-0.5 [facility] Comment on above: Performed By: #### B MP, BNP #### [facility] [address] [place] [address] Dr. Leni Hamlin LYMPH # 1.9 103/ul Normal 1.2-3.8 [facility] Comment on above: Performed By: #### B MP, BNP #### [facility] [address] [place] [address] Dr. Leni Hamlin Lymphocytes/100 WBC (Bld) 13.6 % Critically low 20.5-60.0 [facility] Comment on above: Performed By: #### B MP, BNP #### [facility] [address] [place] [address] Dr. Leni Hamlin MANUAL DIFF REQ NO Normal [facility] Comment on above: Performed By: #### B MP, BNP #### [facility] [address] [place] [address] Dr. Leni Hamlin MCH (RBC) [Entitic mass] 29.2 pg Normal 25.9-34.0 [facility] Comment on above: Performed By: #### B MP, BNP #### [facility] [address] [place] [address] Dr. Leni Hamlin MCHC (RBC) [Mass/Vol] 32.6 g/dL Normal 29.9-35.2 [facility] Comment on above: Performed By: #### B MP, BNP #### [facility] [address] [place] [address] Dr. Leni Hamlin MCV (RBC) [Entitic vol] 89.5 fL Normal 80.0-94.0 [facility] Comment on above: Performed By: #### B MP, BNP #### [facility] [address] [place] [address] Dr. Leni Hamlin MONO # 0.9 103/ul Critically high 0.3-0.8 [facility] Comment on above: Performed By: #### B MP, BNP #### [facility] [address] [place] [address] Dr. Leni Hamlin Monocytes/100 WBC (Bld) 6.6 % Normal 1.7-12.0 [facility] Comment on above: Performed By: #### B MP, BNP #### [facility] [address] [address] [address] Leni Hamlin NEUT # 10.4 103/ul Critically high 1.4-6.[address] [facility] Comment on above: Performed By: #### B MP, BNP #### [facility] [address] [address] [address] Leni Hamlin Neutrophils/100 WBC (Bld) 75.8 % Critically high 43.0-75.0 [facility] Comment on above: Performed By: #### B MP, BNP #### [facility] [address] [address] [address] Leni Hamlin Platelet mean volume (Bld) [Entitic vol] 10.6 fL Normal 9.5-13.5 [facility] Comment on above: Performed By: #### B MP, BNP #### [facility] [address] [address] [address] Leni Hamlin PLT 143 103/ul Critically low 150-450 [facility] Comment on above: Performed By: #### B MP, BNP #### [facility] [address] [address] [address] Leni Hamlin RBC 5.24 106/ul Normal 4.70-6.10 [facility] Comment on above: Performed By: #### B MP, BNP #### [facility] [address] [address] [address] Leni Hamlin WBC 13.7 103/ul Critically high 4.0-11.[address] [facility] Comment on above: Performed By: #### B MP, BNP #### [facility] [address] [address] [address] Leni Hamlin CRPon 10-03-2022 CRP 7.6 mg/dL Critically high <=1.0 [facility] Comment on above: Performed By: #### C MP, CRP #### [facility] [address] [address] [address] Leni Hamlin PROF 14(COMP METB)on 11-23-2 022 Albumin [Mass/Vol] 2.5 g/dL Critically low 3.4-5.0 Th e [facility] Comment on above: Performed By: #### C MP, CRP #### [facility] [address] [address] [address] Leni Hamlin Albumin/Globulin [Mass ratio] 0.7 {ratio} Normal [facility] Comment on above: Performed By: #### C MP, CRP #### [facility] [address] [address] [address] Leni Hamlin ALP [Catalytic activity/Vol] 54 U/L Normal 46-116 [facility] Comment on above: Performed By: #### C MP, CRP #### [facility] [address] [address] [address] Leni Hamlin ALT [Catalytic activity/Vol] 11 U/L Critically low 16-63 [facility] Comment on above: Performed By: #### C MP, CRP #### [facility] [address] [address] [address] Leni Hamlin Anion gap [Moles/Vol] 8.8 mmol/L Normal [facility] Comment on above: Performed By: #### C MP, CRP #### [facility] [address] [address] [address] Leni Hamlin AST [Catalytic activity/Vol] 9 U/L Critically low 15-37 [facility] Comment on above: Performed By: #### C MP, CRP #### [facility] [address] [address] [address] Leni Hamlin Bilirubin [Mass/Vol] 0.3 mg/dL Normal 0.2-1.0 [facility] Comment on above: Performed By: #### C MP, CRP #### [facility] [address] [address] [address] Leni Hamlin Calcium [Mass/Vol] 8.6 mg/dL Normal 8.5-10.1 [facility] Comment on above: Performed By: #### C MP, CRP #### [facility] [address] [address] [address] Leni Hamlin Chloride [Moles/Vol] 103 mmol/L Normal 98-107 [facility] Comment on above: Performed By: #### C MP, CRP #### [facility] [address] [address] [address] Leni Hamlin CO2 [Moles/Vol] 29.2 mmol/L Normal 21.0-32.0 [facility] Comment on above: Performed By: #### C MP, CRP #### [facility] [address] [address] [address] Leni Hamlin Creatinine [Mass/Vol] 1.20 mg/dL Normal 0.70-1.30 [facility] Comment on above: Performed By: #### C MP, CRP #### [facility] [address] [place] [address] Dr. Leni Hamlin EGFR-AF NIGERIEN >60 Normal >=60 [facility] Comment on above: Performed By: #### C MP, CRP #### [facility] [address] [place] [address] Dr. Leni Hamlin EGFR-NON AF NIGERIEN 59 mL/min/1.73m2 Critically low >=60 [facility] Comment on above: Performed By: #### C MP, CRP #### [facility] [address] [place] [address] Dr. Leni Hamlin Globulin (S) [Mass/Vol] 3.4 g/dL Normal [facility] Comment on above: Performed By: #### C MP, CRP #### [facility] [address] [address] [address] Leni Hamlin Glucose [Mass/Vol] 108 mg/dL Critically high 74-106 [facility] Comment on above: Performed By: #### C MP, CRP #### [facility] [address] [address] [address] Leni Hamlin Potassium [Moles/Vol] 4.0 mmol/L Normal 3.5-5.1 [facility] Comment on above: Performed By: #### C MP, CRP #### [facility] [address] [address] [address] Leni Hamlin Protein [Mass/Vol] 5.9 g/dL Critically low 6.4-8.2 Th e [facility] Comment on above: Performed By: #### C MP, CRP #### [facility] [address] [place] [address] Dr. Leni Hamlin Sodium [Moles/Vol] 137 mmol/L Normal 136-145 [facility] Comment on above: Performed By: #### C MP, CRP #### [facility] [address] [place] [address] Dr. Leni Hamlin Urea nitrogen [Mass/Vol] 15.0 mg/dL Normal 7.0-18.0 [facility] Comment on above: Performed By: #### C MP, CRP #### [facility] [address] [place] [address] Dr. Leni Hamlin Urea nitrogen/Creatinine [Mass ratio] 12.5 mg/mg Normal [facility] Comment on above: Performed By: #### C MP, CRP #### [facility] [address] [place] [address] Dr. Leni Hamlin CBC AUTO DIFFon 10-02-2022 BASO # 0.1 103/ul Normal 0.0-0.1 [facility] Comment on above: Performed By: #### C MP, CRP #### [facility] [address] [place] [address] Dr. Leni Hamlin Basophils/100 WBC (Bld) 0.5 % Normal 0.2-2.0 [facility] Comment on above: Performed By: #### C MP, CRP #### [facility] [address] [place] [address] Dr. Leni Hamlin EO # 0.2 103/ul Normal 0.0-0.7 [facility] Comment on above: Performed By: #### C MP, CRP #### [facility] [address] [place] [address] Dr. Leni Hamlin Eosinophils/100 WBC (Bld) 1.6 % Normal 0.9-7.0 [facility] Comment on above: Performed By: #### C MP, CRP #### [facility] [address] [place], [place] [id number] Dr. Leni Hamlin Erythrocyte distribution width (RBC) [Ratio] 13.4 % Normal 11.0-15.0 [facility] Comment on above: Performed By: #### C MP, CRP #### [facility] [address] [place] [address] Dr. Leni Hamlin Hematocrit (Bld) [Volume fraction] 46.6 % Normal 42.0-54.0 [facility] Comment on above: Performed By: #### C MP, CRP #### [facility] [address] [place] [address] Dr. Leni Hamlin Hemoglobin (Bld) [Mass/Vol] 15.1 g/dL Normal 14.0-18.0 [facility] Comment on above: Performed By: #### C MP, CRP #### [facility] [address] [place] [address] Dr. Leni Hamlin IG # 0.21 10e3/ul Critically high 0.00-0.03 [facility] Comment on above: Performed By: #### C MP, CRP #### [facility] [address] [place] [address] Dr. Leni Hamlin IG % 1.4 % Critically high 0.0-0.5 [facility] Comment on above: Performed By: #### C MP, CRP #### [facility] [address] [place] [address] Dr. Leni Hamlin LYMPH # 1.9 103/ul Normal 1.2-3.8 [facility] Comment on above: Performed By: #### C MP, CRP #### [facility] [address] [place] [address] Dr. Leni Hamlin Lymphocytes/100 WBC (Bld) 12.4 % Critically low 20.5-60.0 [facility] Comment on above: Performed By: #### C MP, CRP #### [facility] [address] [place] [address] Dr. Leni Hamlin MANUAL DIFF REQ NO Normal [facility] Comment on above: Performed By: #### C MP, CRP #### [facility] [address] [address] [address] Leni Hamlin MCH (RBC) [Entitic mass] 28.9 pg Normal 25.9-34.0 [facility] Comment on above: Performed By: #### C MP, CRP #### [facility] [address] [place] [address] Dr. Leni Hamlin MCHC (RBC) [Mass/Vol] 32.4 g/dL Normal 29.9-35.2 [facility] Comment on above: Performed By: #### C MP, CRP #### [facility] [address] [place] [address] Dr. Leni Hamlin MCV (RBC) [Entitic vol] 89.3 fL Normal 80.0-94.0 [facility] Comment on above: Performed By: #### C MP, CRP #### [facility] [address] [place] [address] Dr. Leni Hamlin MONO # 1.1 103/ul Critically high 0.3-0.8 [facility] Comment on above: Performed By: #### C MP, CRP #### [facility] [address] [place] [address] Dr. Leni Hamlin Monocytes/100 WBC (Bld) 6.9 % Normal 1.7-12.0 [facility] Comment on above: Performed By: #### C MP, CRP #### [facility] [address] [place] [address] Dr. Leni Hamlin NEUT # 11.8 103/ul Critically high 1.4-6.[address] [facility] Comment on above: Performed By: #### C MP, CRP #### [facility] [address] [place] [address] Dr. Leni Hamlin Neutrophils/100 WBC (Bld) 77.2 % Critically high 43.0-75.0 [facility] Comment on above: Performed By: #### C MP, CRP #### [facility] [address] [place] [address] Dr. Leni Hamlin Platelet mean volume (Bld) [Entitic vol] 10.5 fL Normal 9.5-13.5 [facility] Comment on above: Performed By: #### C MP, CRP #### [facility] [address] [address] [address] Leni Hamlin PLT 138 103/ul Critically low 150-[address] [facility] Comment on above: Performed By: #### C MP, CRP #### [facility] [address] [address] [address] Leni Hamlin RBC 5.22 106/ul Normal 4.70-6.10 The [facility] Comment on above: Performed By: #### C MP, CRP #### [facility] [address] [address] [address] Leni Hamlin WBC 15.3 103/ul Critically high 4.0-11.[address] [facility] Comment on above: Performed By: #### C MP, CRP #### [facility] [address] [place] [address] Dr. Leni Hamlin CRPon 10-02-2022 CRP 13.7 mg/dL Critically high <=1.0 [facility] Comment on above: Performed By: #### C VDAGS #### [facility] [address] [address] [address] Leni Hamlin PROF 14(COMP METB)on 022 Albumin [Mass/Vol] 2.5 g/dL Critically low 3.4-5.0 Th [facility] Comment on above: Performed By: #### C VDAGS #### [facility] [address] [address] [address] Leni Hamlin Albumin/Globulin [Mass ratio] 0.8 {ratio} Normal [facility] Comment on above: Performed By: #### C VDAGS #### [facility] [address] [address] [address] Leni Hamlin ALP [Catalytic activity/Vol] 54 U/L Normal 46-116 The [facility] Comment on above: Performed By: #### C VDAGS #### [facility] [address] [address] [address] Leni Hamlin ALT [Catalytic activity/Vol] 13 U/L Critically low 16-63 [facility] Comment on above: Performed By: #### C VDAGS #### [facility] [address] [address] [address] Leni Hamlin Anion gap [Moles/Vol] 10.6 mmol/L Normal [facility] Comment on above: Performed By: #### C VDAGS #### [facility] [address] [address] [address] Leni Hamlin AST [Catalytic activity/Vol] 9 U/L Critically low 15-37 [facility] Comment on above: Performed By: #### C VDAGS #### [facility] [address] [address] [address] Leni Hamlin Bilirubin [Mass/Vol] 0.3 mg/dL Normal 0.2-1.0 [facility] Comment on above: Performed By: #### C VDAGS #### [facility] [address] [address] [address] Leni Hamlin Calcium [Mass/Vol] 8.5 mg/dL Normal 8.5-10.1 [facility] Comment on above: Performed By: #### C VDAGS #### [facility] [address] [address] [address] Leni Hamlin Chloride [Moles/Vol] 104 mmol/L Normal 98-107 [facility] Comment on above: Performed By: #### C VDAGS #### [facility] [address] [address] [address] Leni Hamlin CO2 [Moles/Vol] 27.5 mmol/L Normal 21.0-32.[address] [facility] Comment on above: Performed By: #### C VDAGS #### [facility] [address] [address] [address] Leni Hamlin Creatinine [Mass/Vol] 1.26 mg/dL Normal 0.70-1.30 [facility] Comment on above: Performed By: #### C VDAGS #### [facility] [address] [address] [address] Leni Hamlin EGFR-AF NIGERIEN >60 Normal >=[address] [facility] Comment on above: Performed By: #### C VDAGS #### [facility] [address] [address] [address] Leni Hamlin EGFR-NON AF NIGERIEN 56 mL/min/1.73m2 Critically low >=60 [facility] Comment on above: Performed By: #### C VDAGS #### [facility] [address] [address] [address] Leni Hamlin Globulin (S) [Mass/Vol] 3.3 g/dL Normal [facility] Comment on above: Performed By: #### C VDAGS #### [facility] [address] [address] [address] Leni Hamlin Glucose [Mass/Vol] 122 mg/dL Critically high 74-106 [facility] Comment on above: Performed By: #### C VDAGS #### [facility] [address] [address] [address] Leni Hamlin Potassium [Moles/Vol] 4.1 mmol/L Normal 3.5-5.1 [facility] Comment on above: Performed By: #### C VDAGS #### [facility] [address] [address] [address] Leni Hamlin Protein [Mass/Vol] 5.8 g/dL Critically low 6.4-8.2 Th [facility] Comment on above: Performed By: #### C VDAGS #### [facility] [address] [address] [address] Leni Hamlin Sodium [Moles/Vol] 138 mmol/L Normal 136-145 [facility] Comment on above: Performed By: #### C VDAGS #### [facility] [address] [address] [address] Leni Hamlin Urea nitrogen [Mass/Vol] 20.0 mg/dL Critically high 7.0-18.0 [facility] Comment on above: Performed By: #### C VDAGS #### [facility] [address] [address] [address] Leni Hamlin Urea nitrogen/Creatinine [Mass ratio] 15.9 mg/mg Normal The [facility] Comment on above: Performed By: #### C VDAGS #### [facility] [address] [place] [address] Dr. Leni Hamlin CBC AUTO DIFFon 10-01-2022 BASO # 0.1 103/ul Normal 0.0-0.1 [facility] Comment on above: Performed By: #### C MP, CRP #### [facility] [address] [place] [address] Dr. Leni Hamlin Basophils/100 WBC (Bld) 0.3 % Normal 0.2-2.0 The [facility] Comment on above: Performed By: #### C MP, CRP #### [facility] [address] [place] [address] Dr. Leni Hamlin EO # 0.2 103/ul Normal 0.0-0.7 The [facility] Comment on above: Performed By: #### C MP, CRP #### [facility] [address] [place] [address] Dr. Leni Hamlin Eosinophils/100 WBC (Bld) 0.8 % Critically low 0.9-7.0 [facility] Comment on above: Performed By: #### C MP, CRP #### [facility] [address] [place] [address] Dr. Leni Hamlin Erythrocyte distribution width (RBC) [Ratio] 13.6 % Normal 11.0-15.0 [facility] Comment on above: Performed By: #### C MP, CRP #### [facility] [address] [place] [address] Dr. Leni Hamlin Hematocrit (Bld) [Volume fraction] 49.0 % Normal 42.0-54.0 The [facility] Comment on above: Performed By: #### C MP, CRP #### [facility] [address] [place] [address] Dr. Leni Hamlin Hemoglobin (Bld) [Mass/Vol] 16.0 g/dL Normal 14.0-18.0 [facility] Comment on above: Performed By: #### C MP, CRP #### [facility] [address] [address] [address] Leni Hamlin IG # 0.24 10e3/ul Critically high 0.00-0.[address] [facility] Comment on above: Performed By: #### C MP, CRP #### [facility] [address] [address] [address] Leni Hamlin IG % 1.2 % Critically high 0.0-0.5 The [facility] Comment on above: Performed By: #### C MP, CRP #### [facility] [address] [address] [address] Leni Hamlin LYMPH # 1.6 103/ul Normal 1.2-3.8 The [facility] Comment on above: Performed By: #### C MP, CRP #### [facility] [address] [address] [address] Leni Hamlin Lymphocytes/100 WBC (Bld) 8.0 % Critically low 20.5-60.0 The [facility] Comment on above: Performed By: #### C MP, CRP #### [facility] [address] [address] [address] Leni Hamlin MANUAL DIFF REQ NO Normal [facility] Comment on above: Performed By: #### C MP, CRP #### [facility] [address] [address] [address] Leni Hamlin MCH (RBC) [Entitic mass] 29.4 pg Normal 25.9-34.0 The [facility] Comment on above: Performed By: #### C MP, CRP #### [facility] [address] [address] [address] Leni Hamlin MCHC (RBC) [Mass/Vol] 32.7 g/dL Normal 29.9-35.2 The [facility] Comment on above: Performed By: #### C MP, CRP #### [facility] [address] [address] [address] Leni Hamlin MCV (RBC) [Entitic vol] 90.1 fL Normal 80.0-94.0 The [facility] Comment on above: Performed By: #### C MP, CRP #### [facility] [address] [address] [address] Leni Hamlin MONO # 1.0 103/ul Critically high 0.3-0.8 The [facility] Comment on above: Performed By: #### C MP, CRP #### [facility] [address] [address] [address] Leni Hamlin Monocytes/100 WBC (Bld) 5.1 % Normal 1.7-12.0 The [facility] Comment on above: Performed By: #### C MP, CRP #### [facility] [address] [address] [address] Leni Hamlin NEUT # 16.8 103/ul Critically high 1.4-6.[address] [facility] Comment on above: Performed By: #### C MP, CRP #### [facility] [address] [place] [address] Dr. Leni Hamlin Neutrophils/100 WBC (Bld) 84.6 % Critically high 43.0-75.0 [facility] Comment on above: Performed By: #### C MP, CRP #### [facility] [address] [address] [address] Leni Hamlin Platelet mean volume (Bld) [Entitic vol] 9.7 fL Normal 9.5-13.5 The [facility] Comment on above: Performed By: #### C MP, CRP #### [facility] [address] [place] [address] Dr. Leni Hamlin PLT 138 103/ul Critically low 150-[address] [facility] Comment on above: Performed By: #### C MP, CRP #### [facility] [address] [address] [address] Leni Hamlin RBC 5.44 106/ul Normal 4.70-6.10 The [facility] Comment on above: Performed By: #### C MP, CRP #### [facility] [address] [place] [address] Dr. Leni Hamlin WBC 19.8 103/ul Critically high 4.0-11.[address] [facility] Comment on above: Performed By: #### C MP, CRP #### [facility] [address] [place] [address] Dr. Leni Hamlin BASO # 0.1 103/ul Normal 0.0-0.1 The [facility] Comment on above: Performed By: #### B MP, BNP #### [facility] [address] [place] [address] Dr. Leni Hamlin Basophils/100 WBC (Bld) 0.3 % Normal 0.2-2.0 [facility] Comment on above: Performed By: #### B MP, BNP #### [facility] [address] [place] [address] Dr. Leni Hamlin EO # 0.1 103/ul Normal 0.0-0.7 The [facility] Comment on above: Performed By: #### B MP, BNP #### [facility] [address] [place] [address] Dr. Leni Hamlin Eosinophils/100 WBC (Bld) 0.7 % Critically low 0.9-7.0 [facility] Comment on above: Performed By: #### B MP, BNP #### [facility] [address] [place] [address] Dr. Leni Hamlin Erythrocyte distribution width (RBC) [Ratio] 13.6 % Normal 11.0-15.0 [facility] Comment on above: Performed By: #### B MP, BNP #### [facility] [address] [place] [address] Dr. Leni Hamlin Hematocrit (Bld) [Volume fraction] 46.9 % Normal 42.0-54.0 [facility] Comment on above: Performed By: #### B MP, BNP #### [facility] [address] [place] [address] Dr. Leni Hamlin Hemoglobin (Bld) [Mass/Vol] 15.5 g/dL Normal 14.0-18.0 [facility] Comment on above: Performed By: #### B MP, BNP #### [facility] [address] [place] [address] Dr. Leni Hamlin IG # 0.16 10e3/ul Critically high 0.00-0.03 [facility] Comment on above: Performed By: #### B MP, BNP #### [facility] [address] [address] [address] Leni Hamlin IG % 0.9 % Critically high 0.0-0.5 [facility] Comment on above: Performed By: #### B MP, BNP #### [facility] [address] [address] [address] Leni Hamlin LYMPH # 1.8 103/ul Normal 1.2-3.8 [facility] Comment on above: Performed By: #### B MP, BNP #### [facility] [address] [address] [address] Leni Hamlin Lymphocytes/100 WBC (Bld) 9.7 % Critically low 20.5-60.0 [facility] Comment on above: Performed By: #### B MP, BNP #### [facility] [address] [address] [address] Leni Hamlin MANUAL DIFF REQ NO Normal [facility] Comment on above: Performed By: #### B MP, BNP #### [facility] [address] [address] [address] Leni Hamlin MCH (RBC) [Entitic mass] 29.2 pg Normal 25.9-34.0 [facility] Comment on above: Performed By: #### B MP, BNP #### [facility] [address] [address] [address] Leni Hamlin MCHC (RBC) [Mass/Vol] 33.0 g/dL Normal 29.9-35.2 The [facility] Comment on above: Performed By: #### B MP, BNP #### [facility] [address] [address] [address] Leni Hamlin MCV (RBC) [Entitic vol] 88.3 fL Normal 80.0-94.0 [facility] Comment on above: Performed By: #### B MP, BNP #### [facility] [address] [address] [address] Leni Hamlin MONO # 1.4 103/ul Critically high 0.3-0.8 The [facility] Comment on above: Performed By: #### B MP, BNP #### [facility] [address] [address] [address] Leni Hamlin Monocytes/100 WBC (Bld) 7.3 % Normal 1.7-12.0 [facility] Comment on above: Performed By: #### B MP, BNP #### [facility] [address] [place] [address] Dr. Leni Hamlin NEUT # 15.1 103/ul Critically high 1.4-6.5 [facility] Comment on above: Performed By: #### B MP, BNP #### [facility] [address] [place] [address] Dr. Leni Hamlin Neutrophils/100 WBC (Bld) 81.1 % Critically high 43.0-75.0 [facility] Comment on above: Performed By: #### B MP, BNP #### [facility] [address] [place] [address] Dr. Leni Hamlin Platelet mean volume (Bld) [Entitic vol] 10.0 fL Normal 9.5-13.5 The [facility] Comment on above: Performed By: #### B MP, BNP #### [facility] [address] [place] [address] Dr. Leni Hamlin PLT 141 103/ul Critically low 150-450 [facility] Comment on above: Performed By: #### B MP, BNP #### [facility] [address] [place] [address] Dr. Leni Hamlin RBC 5.31 106/ul Normal 4.70-6.10 The [facility] Comment on above: Performed By: #### B MP, BNP #### [facility] [address] [place] [address] Dr. Leni Hamlin WBC 18.7 103/ul Critically high 4.0-11.[address] [facility] Comment on above: Performed By: #### B MP, BNP #### [facility] [address] [place] [address] Dr. Leni Hamlin CRPon 10-01-2022 CRP 16.0 mg/dL Critically high <=1.0 [facility] Comment on above: Performed By: #### C VDAGS #### [facility] [address] [place] [address] Dr. Leni Hamlin PROF 14(COMP METB)on 022 Albumin [Mass/Vol] 2.6 g/dL Critically low 3.4-5.0 Th e [facility] Comment on above: Performed By: #### C MP, CRP #### [facility] [address] [place] [address] Dr. Leni Hamlin Albumin/Globulin [Mass ratio] 0.8 {ratio} Normal [facility] Comment on above: Performed By: #### C MP, CRP #### [facility] [address] [place] [address] Dr. Leni Hamlin ALP [Catalytic activity/Vol] 44 U/L Critically low 46-116 [facility] Comment on above: Performed By: #### C MP, CRP #### [facility] [address] [place] [address] Dr. Leni Hamlin ALT [Catalytic activity/Vol] 12 U/L Critically low 16-63 [facility] Comment on above: Performed By: #### C MP, CRP #### [facility] [address] [place] [address] Dr. Leni Hamlin Anion gap [Moles/Vol] 8.7 mmol/L Normal [facility] Comment on above: Performed By: #### C MP, CRP #### [facility] [address] [place] [address] Dr. Leni Hamlin AST [Catalytic activity/Vol] 10 U/L Critically low 15-37 [facility] Comment on above: Performed By: #### C MP, CRP #### [facility] [address] [place] [address] Dr. Leni Hamlin Bilirubin [Mass/Vol] 0.8 mg/dL Normal 0.2-1.0 [facility] Comment on above: Performed By: #### C MP, CRP #### [facility] [address] [place] [address] Dr. Leni Hamlin Calcium [Mass/Vol] 8.3 mg/dL Critically low 8.5-10.1 Th [facility] Comment on above: Performed By: #### C MP, CRP #### [facility] [address] [place] [address] Dr. Leni Hamlin Chloride [Moles/Vol] 103 mmol/L Normal 98-107 [facility] Comment on above: Performed By: #### C MP, CRP #### [facility] [address] [address] [address] Leni Hamlin CO2 [Moles/Vol] 28.2 mmol/L Normal 21.0-32.0 [facility] Comment on above: Performed By: #### C MP, CRP #### [facility] [address] [place] [address] Dr. Leni Hamlin Creatinine [Mass/Vol] 1.24 mg/dL Normal 0.70-1.30 [facility] Comment on above: Performed By: #### C MP, CRP #### [facility] [address] [place] [address] Dr. Leni Hamlin EGFR-AF NIGERIEN >60 Normal >=60 [facility] Comment on above: Performed By: #### C MP, CRP #### [facility] [address] [place] [address] Dr. Leni Hamlin EGFR-NON AF NIGERIEN 57 mL/min/1.73m2 Critically low >=60 [facility] Comment on above: Performed By: #### C MP, CRP #### [facility] [address] [place] [address] Dr. Leni Hamlin Globulin (S) [Mass/Vol] 3.2 g/dL Normal [facility] Comment on above: Performed By: #### C MP, CRP #### [facility] [address] [place] [address] Dr. Leni Hamlin Glucose [Mass/Vol] 111 mg/dL Critically high 74-106 [facility] Comment on above: Performed By: #### C MP, CRP #### [facility] [address] [place] [address] Dr. Leni Hamlin Potassium [Moles/Vol] 3.9 mmol/L Normal 3.5-5.1 [facility] Comment on above: Performed By: #### C MP, CRP #### [facility] [address] [place] [address] Dr. Leni Hamlin Protein [Mass/Vol] 5.8 g/dL Critically low 6.4-8.2 Th e [facility] Comment on above: Performed By: #### C MP, CRP #### [facility] [address] [address] [address] Leni Hamlin Sodium [Moles/Vol] 136 mmol/L Normal 136-145 [facility] Comment on above: Performed By: #### C MP, CRP #### [facility] [address] [place] [address] Dr. Leni Hamlin Urea nitrogen [Mass/Vol] 17.0 mg/dL Normal 7.0-18.0 [facility] Comment on above: Performed By: #### C MP, CRP #### [facility] [address] [place] [address] Dr. Leni Hamlin Urea nitrogen/Creatinine [Mass ratio] 13.7 mg/mg Normal [facility] Comment on above: Performed By: #### C MP, CRP #### [facility] [address] [place] [address] Dr. Leni Hamlin C. DIFF PCRon 09-30-2022 C. DIFFICILE PCR Positive Critically abnormal NEGATIVE [facility] Comment on above: Performed By: #### C VDAGS #### [facility] [address] [place] [address] Dr. Leni Hamlin CBC AUTO DIFFon 09-30-2022 BASO # 0.0 103/ul Normal 0.0-0.1 [facility] Comment on above: Performed By: #### C BC #### [facility] [address] [place] [address] Dr. Leni Hamlin Basophils/100 WBC (Bld) 0.3 % Normal 0.2-2.0 [facility] Comment on above: Performed By: #### C BC #### [facility] [address] [address] [address] Leni Hamlin EO # 0.1 103/ul Normal 0.0-0.7 The [facility] Comment on above: Performed By: #### C BC #### [facility] [address] [place] [address] Dr. Leni Hamlin Eosinophils/100 WBC (Bld) 0.8 % Critically low 0.9-7.0 The [facility] Comment on above: Performed By: #### C BC #### [facility] [address] [place] [address] Dr. Leni Hamlin Erythrocyte distribution width (RBC) [Ratio] 13.4 % Normal 11.0-15.0 [facility] Comment on above: Performed By: #### C BC #### [facility] [address] [place] [address] Dr. Leni Hamlin Hematocrit (Bld) [Volume fraction] 50.4 % Normal 42.0-54.0 [facility] Comment on above: Performed By: #### C BC #### [facility] [address] [place] [address] Dr. Leni Hamlin Hemoglobin (Bld) [Mass/Vol] 16.2 g/dL Normal 14.0-18.0 [facility] Comment on above: Performed By: #### C BC #### [facility] [address] [place] [address] Dr. Leni Hamlin IG # 0.13 10e3/ul Critically high 0.00-0.[address] [facility] Comment on above: Performed By: #### C BC #### [facility] [address] [place] [address] Dr. Leni Hamlin IG % 0.9 % Critically high 0.0-0.5 [facility] Comment on above: Performed By: #### C BC #### [facility] [address] [place] [address] Dr. Leni Hamlin LYMPH # 1.7 103/ul Normal 1.2-3.8 The [facility] Comment on above: Performed By: #### C BC #### [facility] [address] [place] [address] Dr. Leni Hamlin Lymphocytes/100 WBC (Bld) 11.1 % Critically low 20.5-60.0 The [facility] Comment on above: Performed By: #### C BC #### [facility] [address] [place] [address] Dr. Leni Hamlin MANUAL DIFF REQ NO Normal [facility] Comment on above: Performed By: #### C BC #### [facility] [address] [place] [address] Dr. Leni Hamlin MCH (RBC) [Entitic mass] 28.8 pg Normal 25.9-34.0 The [facility] Comment on above: Performed By: #### C BC #### [facility] [address] [place] [address] Dr. Leni Hamlin MCHC (RBC) [Mass/Vol] 32.1 g/dL Normal 29.9-35.2 The [facility] Comment on above: Performed By: #### C BC #### [facility] [address] [place] [address] Dr. Leni Hamlin MCV (RBC) [Entitic vol] 89.7 fL Normal 80.0-94.0 The [facility] Comment on above: Performed By: #### C BC #### [facility] [address] [place] [address] Dr. Leni Hamlin MONO # 1.5 103/ul Critically high 0.3-0.8 The [facility] Comment on above: Performed By: #### C BC #### [facility] [address] [place] [address] Dr. Leni Hamlin Monocytes/100 WBC (Bld) 9.8 % Normal 1.7-12.0 The [facility] Comment on above: Performed By: #### C BC #### [facility] [address] [place] [address] Dr. Leni Hamlin NEUT # 11.7 103/ul Critically high 1.4-6.[address] [facility] Comment on above: Performed By: #### C BC #### [facility] [address] [place] [address] Dr. Leni Hamlin Neutrophils/100 WBC (Bld) 77.1 % Critically high 43.0-75.0 [facility] Comment on above: Performed By: #### C BC #### [facility] [address] [place] [address] Dr. Leni Hamlin Platelet mean volume (Bld) [Entitic vol] 9.9 fL Normal 9.5-13.5 [facility] Comment on above: Performed By: #### C BC #### [facility] [address] [place] [address] Dr. Leni Hamlin PLT 156 103/ul Normal 150-450 The [facility] Comment on above: Performed By: #### C BC #### [facility] [address] [place] [address] Dr. Leni Hamlin RBC 5.62 106/ul Normal 4.70-6.10 [facility] Comment on above: Performed By: #### C BC #### [facility] [address] [place] [address] Dr. Leni Hamlin WBC 15.2 103/ul Critically high 4.0-11.0 [facility] Comment on above: Performed By: #### C BC #### [facility] [address] [place] [address] Dr. Leni Hamlin CRPon 09-30-2022 CRP 7.6 mg/dL Critically high <=1.0 [facility] Comment on above: Performed By: #### C RP #### [facility] [address] [place] [address] Dr. Leni Hamlin PROF 14(COMP METB)on 022 Albumin [Mass/Vol] 2.8 g/dL Critically low 3.4-5.0 [facility] Comment on above: Performed By: #### C RP #### [facility] [address] [place] [address] Dr. Leni Hamlin Albumin/Globulin [Mass ratio] 0.9 {ratio} Normal [facility] Comment on above: Performed By: #### C RP #### [facility] [address] [place] [address] Dr. Leni Hamlin ALP [Catalytic activity/Vol] 45 U/L Critically low 46-116 [facility] Comment on above: Performed By: #### C RP #### [facility] [address] [address] [address] eLni Hamlin ALT [Catalytic activity/Vol] 17 U/L Normal 16-63 [facility] Comment on above: Performed By: #### C RP #### [facility] [address] [address] [address] Leni Hamlin Anion gap [Moles/Vol] 8.4 mmol/L Normal [facility] Comment on above: Performed By: #### C RP #### [facility] [address] [place] [address] Dr. Leni Hamlin AST [Catalytic activity/Vol] 9 U/L Critically low 15-37 [facility] Comment on above: Performed By: #### C RP #### [facility] [address] [place] [address] Dr. Leni Hamlin Bilirubin [Mass/Vol] 0.6 mg/dL Normal 0.2-1.0 [facility] Comment on above: Performed By: #### C RP #### [facility] [address] [place] [address] Dr. Leni Hamlin Calcium [Mass/Vol] 8.6 mg/dL Normal 8.5-10.1 [facility] Comment on above: Performed By: #### C RP #### [facility] [address] [place] [address] Dr. Leni Hamlin Chloride [Moles/Vol] 104 mmol/L Normal 98-107 [facility] Comment on above: Performed By: #### C RP #### [facility] [address] [place] [address] Dr. Leni Hamlin CO2 [Moles/Vol] 29.6 mmol/L Normal 21.0-32.0 [facility] Comment on above: Performed By: #### C RP #### [facility] [address] [place] [address] Dr. Leni Hamlin Creatinine [Mass/Vol] 1.23 mg/dL Normal 0.70-1.30 [facility] Comment on above: Performed By: #### C RP #### [facility] [address] [address] [address] Leni Hamlin EGFR-AF NIGERIEN >60 Normal >=60 [facility] Comment on above: Performed By: #### C RP #### [facility] [address] [address] [address] Leni Hamlin EGFR-NON AF NIGERIEN 58 mL/min/1.73m2 Critically low >=60 [facility] Comment on above: Performed By: #### C RP #### [facility] [address] [address] [address] Leni Hamlin Globulin (S) [Mass/Vol] 3.0 g/dL Normal [facility] Comment on above: Performed By: #### C RP #### [facility] [address] [address] [address] Leni Hamlin Glucose [Mass/Vol] 113 mg/dL Critically high 74-106 [facility] Comment on above: Performed By: #### C RP #### [facility] [address] [address] [address] Leni Hamlin Potassium [Moles/Vol] 4.0 mmol/L Normal 3.5-5.1 [facility] Comment on above: Performed By: #### C RP #### [facility] [address] [address] [address] Leni Hamlin Protein [Mass/Vol] 5.8 g/dL Critically low 6.4-8.2 [facility] Comment on above: Performed By: #### C RP #### [facility] [address] [address] [address] Leni Hamlin Sodium [Moles/Vol] 138 mmol/L Normal 136-145 [facility] Comment on above: Performed By: #### C RP #### [facility] [address] [address] [address] Leni Hamlin Urea nitrogen [Mass/Vol] 17.0 mg/dL Normal 7.0-18.0 [facility] Comment on above: Performed By: #### C RP #### [facility] [address] [place] [address] Dr. Leni Hamlin Urea nitrogen/Creatinine [Mass ratio] 13.8 mg/mg Normal [facility] Comment on above: Performed By: #### C RP #### [facility] [address] [place] [address] Dr. Leni Hamlin CBC AUTO DIFFon 09-29-2022 BASO # 0.1 103/ul Normal 0.0-0.1 [facility] Comment on above: Performed By: #### C VDAGS #### [facility] [address] [place] [address] Dr. Leni Hamlin Basophils/100 WBC (Bld) 0.4 % Normal 0.2-2.0 [facility] Comment on above: Performed By: #### C VDAGS #### [facility] [address] [place] [address] Dr. Leni Hamlin EO # 0.1 103/ul Normal 0.0-0.7 [facility] Comment on above: Performed By: #### C VDAGS #### [facility] [address] [place] [address] Dr. Leni Hamlin Eosinophils/100 WBC (Bld) 0.9 % Normal 0.9-7.0 [facility] Comment on above: Performed By: #### C VDAGS #### [facility] [address] [place] [address] Dr. Leni Hamlin Erythrocyte distribution width (RBC) [Ratio] 13.2 % Normal 11.0-15.0 [facility] Comment on above: Performed By: #### C VDAGS #### [facility] [address] [place] [address] Dr. Leni Hamlin Hematocrit (Bld) [Volume fraction] 53.1 % Normal 42.0-54.0 [facility] Comment on above: Performed By: #### C VDAGS #### [facility] [address] [place] [address] Dr. Leni Hamlin Hemoglobin (Bld) [Mass/Vol] 17.3 g/dL Normal 14.0-18.0 [facility] Comment on above: Performed By: #### C VDAGS #### [facility] [address] [place] [address] Dr. Leni Hamlin IG # 0.30 10e3/ul Critically high 0.00-0.03 [facility] Comment on above: Performed By: #### C VDAGS #### [facility] [address] [place] [address] Dr. Leni Hamlin IG % 2.2 % Critically high 0.0-0.5 [facility] Comment on above: Performed By: #### C VDAGS #### [facility] [address] [place] [address] Dr. Leni Hamlin LYMPH # 1.5 103/ul Normal 1.2-3.8 [facility] Comment on above: Performed By: #### C VDAGS #### [facility] [address] [place] [address] Dr. Leni Hamlin Lymphocytes/100 WBC (Bld) 10.5 % Critically low 20.5-60.0 [facility] Comment on above: Performed By: #### C VDAGS #### [facility] [address] [place] [address] Dr. Leni Hamlin MANUAL DIFF REQ NO Normal [facility] Comment on above: Performed By: #### C VDAGS #### [facility] [address] [place] [address] Dr. Leni Hamlin MCH (RBC) [Entitic mass] 29.0 pg Normal 25.9-34.0 [facility] Comment on above: Performed By: #### C VDAGS #### [facility] [address] [place] [address] Dr. Leni Hamlin MCHC (RBC) [Mass/Vol] 32.6 g/dL Normal 29.9-35.2 [facility] Comment on above: Performed By: #### C VDAGS #### [facility] [address] [place] [address] Dr. Leni Hamlin MCV (RBC) [Entitic vol] 88.9 fL Normal 80.0-94.0 The [facility] Comment on above: Performed By: #### C VDAGS #### [facility] [address] [place] [address] Dr. Leni Hamlin MONO # 0.8 103/ul Normal 0.3-0.8 The [facility] Comment on above: Performed By: #### C VDAGS #### [facility] [address] [place] [address] Dr. Leni Hamlin Monocytes/100 WBC (Bld) 6.0 % Normal 1.7-12.0 The [facility] Comment on above: Performed By: #### C VDAGS #### [facility] [address] [place] [address] Dr. Leni Hamlin NEUT # 11.2 103/ul Critically high 1.4-6.[address] [facility] Comment on above: Performed By: #### C VDAGS #### [facility] [address] [place] [address] Dr. Leni Hamlin Neutrophils/100 WBC (Bld) 80.0 % Critically high 43.0-75.0 [facility] Comment on above: Performed By: #### C VDAGS #### [facility] [address] [place] [address] Dr. Leni Hamlin Platelet mean volume (Bld) [Entitic vol] 9.6 fL Normal 9.5-13.5 The [facility] Comment on above: Performed By: #### C VDAGS #### [facility] [address] [place] [address] Dr. Leni Hamlin PLT 186 103/ul Normal 150-450 The [facility] Comment on above: Performed By: #### C VDAGS #### [facility] [address] [place] [address] Dr. Leni Hamlin RBC 5.97 106/ul Normal 4.70-6.10 The [facility] Comment on above: Performed By: #### C VDAGS #### [facility] [address] [place] [address] Dr. Leni Hamlin WBC 13.9 103/ul Critically high 4.0-11.[address] [facility] Comment on above: Performed By: #### C VDAGS #### [facility] [address], [place] [address] ABD/PELV W CONon [...] RAJESH CHACON Date: 2022-09-29 12:51 Normal The [facility] Covid-19 PCR (CVDTB)on 09-11 SARS-CoV-2 (COVID-19) RNA VENESSA+probe Ql (Unsp spec) Not detected Normal NOT DETECTED The [facility] Comment on above: Result Comment: When diagnostic [...] for this test is supported by the [employer] of Health and Human Service's declaration that [...] Performed By: #### B MP, BNP #### [facility] [address] [place] [address] Dr. Leni Hamlin GI PANEL (PCR)on 09-29-2022 Adenovirus F 40/41 Not detected Normal NOT DETECTED [facility] Comment on above: Performed By: #### C RP #### [facility] [address] [place] [address] Dr. Leni Hamlin Astrovirus Not detected Normal NOT DETECTED [facility] Comment on above: Performed By: #### C RP #### [facility] [address] [place] [address] Dr. Leni [place]vall. Diff toxin A/B Not detected Normal NOT DETECTED The [facility] Comment on above: Performed By: #### C RP #### [facility] [address] [place] [address] Dr. Leni Hamlin Campylobacter Not detected Normal NOT DETECTED [facility] Comment on above: Performed By: #### C RP #### [facility] [address] [place] [address] Dr. Leni Hamlin Cryptosporidium Not detected Normal NOT DETECTED The [facility] Comment on above: Performed By: #### C RP #### [facility] [address] [place] [address] Dr. Leni Hamlin Cyclos. Cayetanensis Not detected Normal NOT DETECTED The [facility] Comment on above: Performed By: #### C RP #### [facility] [address] [place] [address] Dr. Leni Hamlin E. Coli O157 Not Applicable Normal Not Applicable The [facility] Comment on above: Performed By: #### C RP #### [facility] [address] [place] [address] Dr. Leni Hamlin E. histolytica Not detected Normal NOT DETECTED The [facility] Comment on above: Performed By: #### C RP #### [facility] [address] [place] [address] Dr. Leni Hamlin EAEC Not detected Normal NOT DETECTED [facility] Comment on above: Performed By: #### C RP #### [facility] [address] [place] [address] Dr. Leni Hamlin EIEC Not detected Normal NOT DETECTED [facility] Comment on above: Performed By: #### C RP #### [facility] [address] [place] [address] Dr. Leni Hamlin EPEC Not detected Normal NOT DETECTED [facility] Comment on above: Performed By: #### C RP #### [facility] [address] [place] [address] Dr. Leni Hamlin ETEC Not detected Normal NOT DETECTED [facility] Comment on above: Performed By: #### C RP #### [facility] [address] [place] [address] Dr. Leni Finley Lamblia Not detected Normal NOT DETECTED [facility] Comment on above: Performed By: #### C RP #### [facility] [address] [place] [address] Dr. Leni TEJEDA CONTROLS PASSED Normal [facility] Comment on above: Performed By: #### C RP #### [facility] [address] [place] [address] Dr. Leni FRIEND [facility] HEADER GI PANEL BACTERIA Normal [facility] Comment on above: Performed By: #### C RP #### [facility] [address] [place] [address] Dr. Leni KAMARA ECOLI GI PANEL DIARRHEAGENIC E.COLI / SHIGELLA Normal [facility] Comment on above: Performed By: #### C RP #### [facility] [address] [place] [address] Dr. Leni KAMARA INFO SEE BELOW Normal [facility] Comment on above: Result Comment: EAEC - Enteroaggregative E. Coli EPEC- Enteropathogenic E. Coli ETEC- Enterotoxigenic E. Coli lt/st STEC- Shigella-like toxin-producing E. Coli stx1/stx2 EIEC- Shigella/Enteroinvasive E. Coli Performed By: #### C RP #### [facility] [address] [place] [address] Dr. Leni KAMARA PARASITES GI PANEL PARASITES Normal The [facility] Comment on above: Performed By: #### C RP #### [facility] [address] [place] [address] Dr. Leni KAMARA VIRUS GI PANEL VIRUSES Normal The [facility] Comment on above: Performed By: #### C RP #### [facility] [address] [place] [address] Dr. Leni Hamlin Norovirus GI/GII Not detected Normal NOT DETECTED The [facility] Comment on above: Performed By: #### C RP #### [facility] [address] [place] [address] Dr. Leni Hamlin P. Shigelloides Not detected Normal NOT DETECTED The [facility] Comment on above: Performed By: #### C RP #### [facility] [address] [place] [address] Dr. Leni Hamlin Rotavirus A Not detected Normal NOT DETECTED The [facility] Comment on above: Performed By: #### C RP #### [facility] [address] [place] [address] Dr. Leni Hamlin Salmonella Not detected Normal NOT DETECTED [facility] Comment on above: Performed By: #### C RP #### [facility] [address] [place] [address] Dr. Leni Hamlin Sapovirus Not detected Normal NOT DETECTED [facility] Comment on above: Performed By: #### C RP #### [facility] [address] [place] [address] Dr. Leni Hamlin STEC Not detected Normal NOT DETECTED [facility] Comment on above: Performed By: #### C RP #### [facility] [address] [place] [address] Dr. Leni Hamlin Vibrio Not detected Normal NOT DETECTED [facility] Comment on above: Performed By: #### C RP #### [facility] [address] [place] [address] Dr. Leni Hamlin Vibrio Cholera Not detected Normal NOT DETECTED [facility] Comment on above: Performed By: #### C RP #### [facility] [address] [place] [address] Dr. Leni Hamlin Y. Enterocolitica Not detected Normal NOT DETECTED The [facility] Comment on above: Performed By: #### C RP #### [facility] [address] [place] [address] Dr. Leni Hamlin PROF CHEM 8 (BAS METB)on Anion gap [Moles/Vol] 5.8 mmol/L Normal [facility] Comment on above: Performed By: #### C VDAGS #### [facility] [address] [place] [address] Dr. Leni Hamlin Calcium [Mass/Vol] 9.0 mg/dL Normal 8.5-10.1 [facility] Comment on above: Performed By: #### C VDAGS #### [facility] [address] [place] [address] Dr. Leni Hamlin Chloride [Moles/Vol] 103 mmol/L Normal 98-107 The [facility] Comment on above: Performed By: #### C VDAGS #### [facility] [address] [place] [address] Dr. Leni Hamlin CO2 [Moles/Vol] 31.7 mmol/L Normal 21.0-32.[address] [facility] Comment on above: Performed By: #### C VDAGS #### [facility] [address] [place] [address] Dr. Leni Hamlin Creatinine [Mass/Vol] 1.28 mg/dL Normal 0.70-1.30 The [facility] Comment on above: Performed By: #### C VDAGS #### [facility] [address] [place] [address] Dr. Leni Hamlin EGFR-AF NIGERIEN >60 Normal >=[address] [facility] Comment on above: Performed By: #### C VDAGS #### [facility] [address] [place] [address] Dr. Leni Hamlin EGFR-NON AF NIGERIEN 55 mL/min/1.73m2 Critically low >=60 [facility] Comment on above: Performed By: #### C VDAGS #### [facility] [address] [place] [address] Dr. Leni Hamlin Glucose [Mass/Vol] 130 mg/dL Critically high 74-106 [facility] Comment on above: Performed By: #### C VDAGS #### [facility] [address] [place] [address] Dr. Leni Hamlin Potassium [Moles/Vol] 4.5 mmol/L Normal 3.5-5.1 [facility] Comment on above: Performed By: #### C VDAGS #### [facility] [address] [place] [address] Dr. Leni Hamlin Sodium [Moles/Vol] 136 mmol/L Normal 136-145 [facility] Comment on above: Performed By: #### C VDAGS #### [facility] [address] [place] [address] Dr. Leni Hamlin Urea nitrogen [Mass/Vol] 23.0 mg/dL Critically high 7.0-18.0 [facility] Comment on above: Performed By: #### C VDAGS #### [facility] [address] [place] [address] Dr. Leni Hamlin Urea nitrogen/Creatinine [Mass ratio] 18.0 mg/mg Normal [facility] Comment on above: Performed By: #### C VDAGS #### [facility] [address] [place] [address] Dr. Leni Hamlin [facility]13 SARS-CoV-2 (COVID-19) RNA VENESSA+probe Ql (Unsp spec) Not detected Normal NOT DETECTED The [facility] Comment on above: Result Comment: When diagnostic [...] for this test is supported by the [employer] of Health and Human Service's declaration that [...] Performed By: #### C MP, CRP #### [facility] [address] [address] [address] Leni Hamlin Covid-19 PCR (CVDTBH)on 05-11 SARS-CoV-2 (COVID-19) RNA VENESSA+probe Ql (Unsp spec) Detected Critically abnormal NOT DETECTED The [facility] Comment on above: Result Comment: This test is not yet approved or cleared by the [place] FDA. When there are no FDA-approved or cleared tests available, and other criteria are met, FDA can make tests available under an emergency access mechanism called an Emergency Use Authorization (EUA). The EUA for this test is supported by the [place] of Health and Human Service's (HHS's) declaration [...] used). Performed By: #### C RP #### [facility] [address] [address] [address] eLni Hamlin Covid-19 PCR (CVDTBH)on 04-11 SARS-CoV-2 (COVID-19) RNA VENESSA+probe Ql (Unsp spec) Not detected Normal NOT DETECTED The [facility] Comment on above: Result Comment: This test is not yet approved or cleared by the [place] FDA. When there are no FDA-approved or cleared tests available, and other criteria are met, FDA can make tests available under an emergency access mechanism called an Emergency Use Authorization (EUA). The EUA for this test is supported by the [employer] of Health and Human Service's (HHS's) declaration [...] SARS-CoV-2. Performed By: #### C VDTB #### [facility] [address] [place] [address] Dr. Leni Hamlin SYMPTOMATIC COVID-19 ANTIGEN on 04-23-2022 EUA Statement SEE BELOW Normal [facility] Comment on above: Result Comment: This test [...] sooner. Performed By: #### C VDAGS #### [facility] [address] [place] [address] Dr. Leni Hamlin SARS-CoV-2 (COVID-19) RNA VENESSA+probe Ql (Unsp spec) Negative Normal NEGATIVE [facility] Comment on above: Performed By: #### C VDAGS #### [facility] [address] [place] [address] Dr. Leni Hamlin Cardiovascular Lab Reporton 03-22-2022 Cardiovascular Lab Report [facility] Patient Name: Brian Oneal [facility] Jeramy A MR #: [id number] Department of Physician: Modesto Becerra MD Medicine Service Date: 03/22/2022 Division of Birthdate: 1950 Cardiology Room #: [facility] Cardiovascular Services [address] [place] [address] Cardiovascular Laboratory Report PACEMAKER IMPLANT PROCEDURE NOTE [...] using modified seldinger technique using a 5 Kinyarwanda micro-puncture needle on two occasions and 0.35 [...] pocket was created for the device. 6 Kinyarwanda Safesheaths were placed over the wire. An active fixation Biotronik pacing lead was then delivered through the 6Fsheath to the right ventricle. After confirmation of lead position on orthogonal views (RUBALCAVA and KUWAITI) to confirm septal position, the screw was [...] lead position on orthogonal views (RUBALCAVA and KUWAITI), the screw was activated. After confirmation of [...] Device info: Biotronik Edora Model# 8DR-T Serial# [id number] RA lead: Model# Biotronik Solia S45 Serial# [id number] Sensin.5mV Threshold: 0.6V@0.5ms Impedance: 507 Ohms RV lead: Model# Biotronik Solia S53 Serial# [id number] Sensin.5mV Threshold: 0.6V@0.4ms Impedance: 663 Ohms POST [...] El (more content not included)... Normal [facility] SPUTUM CULTUREon 03-17-2022 Epithelial cells LM Ql (Urine sed) Few Normal [facility] Comment on above: Performed By: #### B MP, BNP #### [facility] [address] [address] [address] Leni Hamlin Gram Stain Evaluation Comment Normal [facility] Comment on above: Result Comment: This specimen is of good quality and is acceptable for routine bacterial culture. Performed By: #### B MP, BNP #### [facility] [address] [place] [address] [address] Leni Hamlin Lower Respiratory Culture Final report Normal [facility] Comment on above: Performed By: #### B MP, BNP #### [facility] [address] [place] [address] Dr. Leni Hamlin Result 1 Comment Normal [facility] Comment on above: Result Comment: Few gram negative rods. Performed By: #### B MP, BNP #### [facility] [address] [place] [address] [address] Leni Hamlin Result Comment: Rout ine respiratory bola Result 2 Comment Normal [facility] Comment on above: Result Comment: Few gram positive cocci Performed By: #### B MP, BNP #### [facility] [address] [place] [address] [address] Leni Hamlin Result 3 Comment Normal [facility] Comment on above: Result Comment: Rare gram positive rods Performed By: #### B MP, BNP #### [facility] [address] [place] [address] [address] Leni Hamlin Result 4 Normal [facility] Comment on above: Performed By: #### B MP, BNP #### [facility] [address] [place] [address] [address] Leni Hamlin White Blood Cells Few Normal [facility] Comment on above: Performed By: #### B MP, BNP #### [facility] [address] [place] [address] Dr. Leni Hamlin BNPon 03-15-2022 Natriuretic peptide B (Bld) [Mass/Vol] 429.0 pg/mL Normal <=900.0 [facility] Comment on above: Performed By: #### C MP, CRP #### [facility] [address] [place] [address] Dr. Leni Hamlin CBC AUTO DIFFon 03-15-2022 BASO # 0.0 103/ul Normal 0.0-0.1 [facility] Comment on above: Performed By: #### C VDAGS #### [facility] [address] [place] [address] Dr. Leni Hamlin Basophils/100 WBC (Bld) 0.2 % Normal 0.2-2.0 [facility] Comment on above: Performed By: #### C VDAGS #### [facility] [address] [place] [address] Dr. Leni Hamlin EO # 0.0 103/ul Normal 0.0-0.7 [facility] Comment on above: Performed By: #### C VDAGS #### [facility] [address] [place] [address] Dr. Leni Hamlin Eosinophils/100 WBC (Bld) 0.0 % Critically low 0.9-7.0 [facility] Comment on above: Performed By: #### C VDAGS #### [facility] [address] [place] [address] Dr. Leni Hamlin Erythrocyte distribution width (RBC) [Ratio] 13.6 % Normal 11.0-15.0 [facility] Comment on above: Performed By: #### C VDAGS #### [facility] [address] [place] [address] Dr. Leni Hamlin Hematocrit (Bld) [Volume fraction] 44.5 % Normal 42.0-54.0 [facility] Comment on above: Performed By: #### C VDAGS #### [facility] [address] [place] [address] Dr. Leni Hamlin Hemoglobin (Bld) [Mass/Vol] 13.8 g/dL Critically low 14.0-18.0 [facility] Comment on above: Performed By: #### C VDAGS #### [facility] [address] [place] [address] Dr. Leni Hamlin IG # 0.35 10e3/ul Critically high 0.00-0.[address] [facility] Comment on above: Performed By: #### C VDAGS #### [facility] [address] [place] [address] Dr. Leni Hamlin IG % 2.4 % Critically high 0.0-0.5 [facility] Comment on above: Performed By: #### C VDAGS #### [facility] [address] [place] [address] Dr. Leni Hamlin LYMPH # 0.6 103/ul Critically low 1.2-3.[address] [facility] Comment on above: Performed By: #### C VDAGS #### [facility] [address] [place] [address] Dr. Leni Hamlin Lymphocytes/100 WBC (Bld) 4.1 % Critically low 20.5-60.0 [facility] Comment on above: Performed By: #### C VDAGS #### [facility] [address] [place] [address] Dr. Leni Hamlin MANUAL DIFF REQ NO Normal [facility] Comment on above: Performed By: #### C VDAGS #### [facility] [address] [place] [address] Dr. Leni Hamlin MCH (RBC) [Entitic mass] 29.4 pg Normal 25.9-34.0 [facility] Comment on above: Performed By: #### C VDAGS #### [facility] [address] [place] [address] Dr. Leni Hamlin MCHC (RBC) [Mass/Vol] 31.0 g/dL Normal 29.9-35.2 [facility] Comment on above: Performed By: #### C VDAGS #### [facility] [address] [address] [address] Leni Hamlin MCV (RBC) [Entitic vol] 94.7 fL Critically high 80.0-94.0 [facility] Comment on above: Performed By: #### C VDAGS #### [facility] [address] [place] [address] Dr. Leni Hamlin MONO # 0.7 103/ul Normal 0.3-0.8 [facility] Comment on above: Performed By: #### C VDAGS #### [facility] [address] [place] [address] Dr. Leni Hamlin Monocytes/100 WBC (Bld) 4.7 % Normal 1.7-12.0 [facility] Comment on above: Performed By: #### C VDAGS #### [facility] [address] [place] [address] Dr. Leni Hamlin NEUT # 12.9 103/ul Critically high 1.4-6.5 [facility] Comment on above: Performed By: #### C VDAGS #### [facility] [address] [place] [address] Dr. Leni Hamlin Neutrophils/100 WBC (Bld) 88.6 % Critically high 43.0-75.0 [facility] Comment on above: Performed By: #### C VDAGS #### [facility] [address] [place] [address] Dr. Leni Hamlin Platelet mean volume (Bld) [Entitic vol] 10.2 fL Normal 9.5-13.5 [facility] Comment on above: Performed By: #### C VDAGS #### [facility] [address] [place] [address] Dr. Leni Hamlin PLT 176 103/ul Normal 150-450 [facility] Comment on above: Performed By: #### C VDAGS #### [facility] [address] [place] [address] Dr. Leni Hamlin RBC 4.70 106/ul Normal 4.70-6.10 [facility] Comment on above: Performed By: #### C VDAGS #### [facility] [address] [place] [address] [address] Leni Hamlin WBC 14.6 103/ul Critically high 4.0-11.0 [facility] Comment on above: Performed By: #### C VDAGS #### [facility] [address] [place] [address] [address] Leni Hamlin PROF CHEM 8 (BAS METB)on Anion gap [Moles/Vol] 10.2 mmol/L Normal [facility] Comment on above: Performed By: #### C MP, CRP #### [facility] [address] [place] [address] [address] Leni Hamlin Calcium [Mass/Vol] 8.0 mg/dL Critically low 8.5-10.1 [facility] Comment on above: Performed By: #### C MP, CRP #### [facility] [address] [place] [address] Dr. Leni Hamlin Chloride [Moles/Vol] 104 mmol/L Normal 98-107 [facility] Comment on above: Performed By: #### C MP, CRP #### [facility] [address] [place] [address] [address] Leni Hamlin CO2 [Moles/Vol] 28.2 mmol/L Normal 21.0-32.0 [facility] Comment on above: Performed By: #### C MP, CRP #### [facility] [address] [place] [address] [address] Leni Hamlin Creatinine [Mass/Vol] 1.36 mg/dL Critically high 0.70-1.30 [facility] Comment on above: Performed By: #### C MP, CRP #### [facility] [address] [place] [address] [address] Leni Hamlin EGFR-AF NIGERIEN >60 Normal >=60 [facility] Comment on above: Performed By: #### C MP, CRP #### [facility] [address] [place] [address] [address] Leni Hamlin EGFR-NON AF NIGERIEN 51 mL/min/1.73m2 Critically low >=60 [facility] Comment on above: Performed By: #### C MP, CRP #### [facility] [address] [place] [address] [address] Leni Hamlin Glucose [Mass/Vol] 205 mg/dL Critically high 74-106 [facility] Comment on above: Performed By: #### C MP, CRP #### [facility] [address] [place] [address] Dr. Leni Hamlin Potassium [Moles/Vol] 4.4 mmol/L Normal 3.5-5.1 [facility] Comment on above: Performed By: #### C MP, CRP #### [facility] [address] [place] [address] Dr. Leni Hamlin Sodium [Moles/Vol] 138 mmol/L Normal 136-145 [facility] Comment on above: Performed By: #### C MP, CRP #### [facility] [address] [place] [address] Dr. Leni Hamlin Urea nitrogen [Mass/Vol] 29.0 mg/dL Critically high 7.0-18.0 [facility] Comment on above: Performed By: #### C MP, CRP #### [facility] [address] [place] [address] Dr. Leni Hamlin Urea nitrogen/Creatinine [Mass ratio] 21.3 mg/mg Normal [facility] Comment on above: Performed By: #### C MP, CRP #### [facility] [address] [place] [address] Dr. Leni Hamlin BNPon 03-14-2022 Natriuretic peptide B (Bld) [Mass/Vol] 337.0 pg/mL Normal <=900.0 [facility] Comment on above: Performed By: #### C RP #### [facility] [address] [place] [address] Dr. Leni Hamlin CBC AUTO DIFFon 03-14-2022 BASO # 0.0 103/ul Normal 0.0-0.1 [facility] Comment on above: Performed By: #### C MP, CRP #### [facility] [address] [place] [address] Dr. Leni Hamlin Basophils/100 WBC (Bld) 0.2 % Normal 0.2-2.0 [facility] Comment on above: Performed By: #### C MP, CRP #### [facility] [address] [place] [address] Dr. Leni Hamlin EO # 0.0 103/ul Normal 0.0-0.7 [facility] Comment on above: Performed By: #### C MP, CRP #### [facility] [address] [place] [address] Dr. Leni Hamlin Eosinophils/100 WBC (Bld) 0.0 % Critically low 0.9-7.0 [facility] Comment on above: Performed By: #### C MP, CRP #### [facility] [address] [place] [address] Dr. Leni Hamlin Erythrocyte distribution width (RBC) [Ratio] 13.6 % Normal 11.0-15.0 [facility] Comment on above: Performed By: #### C MP, CRP #### [facility] [address] [place] [address] Dr. Leni Hamlin Hematocrit (Bld) [Volume fraction] 47.8 % Normal 42.0-54.0 [facility] Comment on above: Performed By: #### C MP, CRP #### [facility] [address] [place] [address] Dr. Leni Hamlin Hemoglobin (Bld) [Mass/Vol] 14.6 g/dL Normal 14.0-18.0 [facility] Comment on above: Performed By: #### C MP, CRP #### [facility] [address] [place] [address] Dr. Leni Hamlin IG # 0.22 10e3/ul Critically high 0.00-0.[address] [facility] Comment on above: Performed By: #### C MP, CRP #### [facility] [address] [place] [address] Dr. Leni Hamlin IG % 1.3 % Critically high 0.0-0.5 [facility] Comment on above: Performed By: #### C MP, CRP #### [facility] [address] [place] [address] [address] Leni Hamlin LYMPH # 0.5 103/ul Critically low 1.2-3.[address] [facility] Comment on above: Performed By: #### C MP, CRP #### [facility] [address] [place] [address] Dr. Leni Halmin Lymphocytes/100 WBC (Bld) 2.9 % Critically low 20.5-60.0 [facility] Comment on above: Performed By: #### C MP, CRP #### [facility] [address] [place] [address] Dr. Leni Hamlin MANUAL DIFF REQ NO Normal [facility] Comment on above: Performed By: #### C MP, CRP #### [facility] [address] [place] [address] Dr. Leni Hamlin MCH (RBC) [Entitic mass] 29.4 pg Normal 25.9-34.0 [facility] Comment on above: Performed By: #### C MP, CRP #### [facility] [address] [place] [address] Dr. Leni Hamlin MCHC (RBC) [Mass/Vol] 30.5 g/dL Normal 29.9-35.2 [facility] Comment on above: Performed By: #### C MP, CRP #### [facility] [address] [place] [address] Dr. Leni Hamlin MCV (RBC) [Entitic vol] 96.4 fL Critically high 80.0-94.0 [facility] Comment on above: Performed By: #### C MP, CRP #### [facility] [address] [place] [address] Dr. Leni Hamlin MONO # 1.1 103/ul Critically high 0.3-0.8 [facility] Comment on above: Performed By: #### C MP, CRP #### [facility] [address] [place] [address] Dr. Leni Hamlin Monocytes/100 WBC (Bld) 6.4 % Normal 1.7-12.0 [facility] Comment on above: Performed By: #### C MP, CRP #### [facility] [address] [address] [address] Leni Hamlin NEUT # 15.2 103/ul Critically high 1.4-6.5 [facility] Comment on above: Performed By: #### C MP, CRP #### [facility] [address] [address] [address] Leni Hamlin Neutrophils/100 WBC (Bld) 89.2 % Critically high 43.0-75.0 [facility] Comment on above: Performed By: #### C MP, CRP #### [facility] [address] [address] [address] Leni Hamlin Platelet mean volume (Bld) [Entitic vol] 10.4 fL Normal 9.5-13.5 [facility] Comment on above: Performed By: #### C MP, CRP #### [facility] [address] [place] [address] Dr. Leni Hamlin PLT 167 103/ul Normal 150-450 [facility] Comment on above: Performed By: #### C MP, CRP #### [facility] [address] [place] [address] Dr. Leni Hamlin RBC 4.96 106/ul Normal 4.70-6.10 [facility] Comment on above: Performed By: #### C MP, CRP #### [facility] [address] [place] [address] Dr. Leni Hamlin WBC 17.0 103/ul Critically high 4.0-11.0 [facility] Comment on above: Performed By: #### C MP, CRP #### [facility] [address] [place] [address] Dr. Leni Hamlin PROF CHEM 8 (BAS METB)on Anion gap [Moles/Vol] 7.0 mmol/L Normal [facility] Comment on above: Performed By: #### C VDAGS #### [facility] [address] [place] [address] Dr. Leni Hamlin Calcium [Mass/Vol] 8.3 mg/dL Critically low 8.5-10.1 [facility] Comment on above: Performed By: #### C VDAGS #### [facility] [address] [address] [address] Leni Hamlin Chloride [Moles/Vol] 102 mmol/L Normal 98-107 [facility] Comment on above: Performed By: #### C VDAGS #### [facility] [address] [address] [address] Leni Hamlin CO2 [Moles/Vol] 29.6 mmol/L Normal 21.0-32.0 [facility] Comment on above: Performed By: #### C VDAGS #### [facility] [address] [address] [address] Leni Hamlin Creatinine [Mass/Vol] 1.48 mg/dL Critically high 0.70-1.30 [facility] Comment on above: Performed By: #### C VDAGS #### [facility] [address] [address] [address] Leni Hamlin EGFR-AF NIGERIEN 56 mL/min/1.73m2 Critically low >=60 [facility] Comment on above: Performed By: #### C VDAGS #### [facility] [address] [address] [address] Leni Hamlin EGFR-NON AF NIGERIEN 47 mL/min/1.73m2 Critically low >=60 [facility] Comment on above: Performed By: #### C VDAGS #### [facility] [address] [address] [address] Leni Hamlin Glucose [Mass/Vol] 168 mg/dL Critically high 74-106 [facility] Comment on above: Performed By: #### C VDAGS #### [facility] [address] [address] [address] Leni Hamlin Potassium [Moles/Vol] 4.6 mmol/L Normal 3.5-5.1 [facility] Comment on above: Performed By: #### C VDAGS #### [facility] [address] [address] [address] Leni Hamlin Sodium [Moles/Vol] 134 mmol/L Critically low 136-145 Th e [facility] Comment on above: Performed By: #### C VDAGS #### [facility] [address] [place] [address] Dr. Leni Hamlin Urea nitrogen [Mass/Vol] 29.0 mg/dL Critically high 7.0-18.0 [facility] Comment on above: Performed By: #### C VDAGS #### [facility] [address] [place] [address] Dr. Leni Hamlin Urea nitrogen/Creatinine [Mass ratio] 19.6 mg/mg Normal [facility] Comment on above: Performed By: #### C VDAGS #### [facility] [address] [place] [address] Dr. Leni Hamlin BNPon 03-13-2022 Natriuretic peptide B (Bld) [Mass/Vol] 501.0 pg/mL Normal <=900.0 [facility] Comment on above: Performed By: #### B MP, BNP #### [facility] [address] [place] [address] Dr. Leni Hamlin CBC W MANUAL DIFFon 03-13-20 ATYPICAL LYMPH # Normal [facility] Comment on above: Performed By: #### C VDAGS #### [facility] [address] [place] [address] Dr. Leni Hamlin ATYPICAL LYMPH % Normal [facility] Comment on above: Performed By: #### C VDAGS #### [facility] [address] [place] [address] Dr. Leni Hamlin BAND # 2.1 103/ul Critically high 0.0-0.3 [facility] Comment on above: Performed By: #### C VDAGS #### [facility] [address] [place] [address] Dr. Leni Hamlin BAND % 12 % Critically high 0-5 [facility] Comment on above: Performed By: #### C VDAGS #### [facility] [address] [place] [address] Dr. Leni Hamlin BASOM # 0.00 103/ul Normal 0.00-0.10 [facility] Comment on above: Performed By: #### C VDAGS #### [facility] [address] [place] [address] Dr. Leni Hamlin BASOM % 0.0 % Critically low 0.2-2.0 [facility] Comment on above: Performed By: #### C VDAGS #### [facility] [address] [place] [address] Dr. Leni Hamlin BLAST # Normal [facility] Comment on above: Performed By: #### C VDAGS #### [facility] [address] [place] [address] Dr. Leni Hamlin BLAST % Normal [facility] Comment on above: Performed By: #### C VDAGS #### [facility] [address] [place] [address] Dr. Leni Hamlin CORRECTED WBC Normal 4.0-11.0 [facility] Comment on above: Performed By: #### C VDAGS #### [facility] [address] [place] [address] Dr. Leni Hamlin EOS # 0.00 103/ul Normal 0.00-0.70 [facility] Comment on above: Performed By: #### C VDAGS #### [facility] [address] [place] [address] Dr. Leni Hamlin EOS% 0.0 % Critically low 0.9-7.0 [facility] Comment on above: Performed By: #### C VDAGS #### [facility] [address] [place] [address] Dr. Leni Hamlin HCT 51.2 % Normal 42.0-54.0 [facility] Comment on above: Performed By: #### C VDAGS #### [facility] [address] [place] [address] Dr. Leni Hamlin HGB 15.4 g/dl Normal 14.0-18.0 [facility] Comment on above: Performed By: #### C VDAGS #### [facility] [address] [place] [address] Dr. Leni Hamlin LYMPHM # 0.52 103/ul Critically low 1.20-3.80 [facility] [facility] Comment on above: Performed By: #### C VDAGS #### [facility] [address] [place] [address] Dr. Leni Hamlin LYMPHM% 3.0 % Critically low 20.5-60.0 [facility] Comment on above: Performed By: #### C VDAGS #### [facility] [address] [place] [address] Dr. Leni Hamlin MCH 29.6 pg Normal 25.9-34.0 [facility] Comment on above: Performed By: #### C VDAGS #### [facility] [address] [place] [address] Dr. Leni Hamlin MCHC 30.1 g/dl Normal 29.9-35.2 [facility] Comment on above: Performed By: #### C VDAGS #### [facility] [address] [place] [address] Dr. Leni Hamlin MCV 98.5 fL Critically high 80.0-94.0 [facility] Comment on above: Performed By: #### C VDAGS #### [facility] [address] [place] [address] Dr. Leni Hamlin METAMYELOCYTE # Normal [facility] Comment on above: Performed By: #### C VDAGS #### [facility] [address] [place] [address] Dr. Leni Hamlin METAMYELOCYTE % Normal [facility] Comment on above: Performed By: #### C VDAGS #### [facility] [address] [place] [address] Dr. Leni Hamlin MONOM# 0.86 103/ul Critically high 0.30-0.80 [facility] Comment on above: Performed By: #### C VDAGS #### [facility] [address] [place] [address] Dr. Leni Hamlin MONOM% 5.0 % Normal 1.7-12.0 [facility] Comment on above: Performed By: #### C VDAGS #### [facility] [address] [address] [address] Leni Hamlin MPV 10.0 fL Normal 9.5-13.5 [facility] Comment on above: Performed By: #### C VDAGS #### [facility] [address] [address] [address] Leni Hamlin MYELOCYTE # Normal [facility] Comment on above: Performed By: #### C VDAGS #### [facility] [address] [address] [address] Leni Hamlin MYELOCYTE % Normal [facility] Comment on above: Performed By: #### C VDAGS #### [facility] [address] [place] [address] Dr. Leni Hamlin NRBC Normal [facility] Comment on above: Performed By: #### C VDAGS #### [facility] [address] [address] [address] Leni Hamlin PLT 161 103/ul Normal 150-450 [facility] Comment on above: Performed By: #### C VDAGS #### [facility] [address] [address] [address] Leni Hamlin RBC 5.20 106/ul Normal 4.70-6.10 [facility] Comment on above: Performed By: #### C VDAGS #### [facility] [address] [address] [address] Leni Hamlin RDW 13.5 % Normal 11.0-15.0 [facility] Comment on above: Performed By: #### C VDAGS #### [facility] [address] [address] [address] Leni Hamlin SEG # 13.76 103/ul Critically high 1.40-6.50 [facility] Comment on above: Performed By: #### C VDAGS #### [facility] [address] [address] [address] Leni Hamlin SEG % 80.0 % Critically high 43.0-75.0 [facility] Comment on above: Performed By: #### C VDAGS #### [facility] [address] [address] [address] Leni Hamlin WBC 17.2 103/ul Critically high 4.0-11.0 [facility] Comment on above: Performed By: #### C VDAGS #### [facility] [address] [address] [address] Leni Hamlin PROF CHEM 8 (BAS METB)on Anion gap [Moles/Vol] 12.5 mmol/L Normal [facility] Comment on above: Performed By: #### C VDAGS #### [facility] [address] [address] [address] Leni Hamlin Calcium [Mass/Vol] 8.4 mg/dL Critically low 8.5-10.1 [facility] Comment on above: Performed By: #### C VDAGS #### [facility] [address] [place] [address] Dr. Leni Hamlin Chloride [Moles/Vol] 100 mmol/L Normal 98-107 [facility] Comment on above: Performed By: #### C VDAGS #### [facility] [address] [address] [address] Leni Hamlin CO2 [Moles/Vol] 26.7 mmol/L Normal 21.0-32.0 [facility] Comment on above: Performed By: #### C VDAGS #### [facility] [address] [address] [address] Leni Hamlin Creatinine [Mass/Vol] 1.87 mg/dL Critically high 0.70-1.30 [facility] Comment on above: Performed By: #### C VDAGS #### [facility] [address] [address] [address] Leni Hamlin EGFR-AF NIGERIEN 43 mL/min/1.73m2 Critically low >=60 [facility] Comment on above: Performed By: #### C VDAGS #### [facility] [address] [place] [address] Dr. Leni Hamlin EGFR-NON AF NIGERIEN 36 mL/min/1.73m2 Critically low >=60 [facility] Comment on above: Performed By: #### C VDAGS #### [facility] [address] [address] [address] Leni Hamlin Glucose [Mass/Vol] 222 mg/dL Critically high 74-106 [facility] Comment on above: Performed By: #### C VDAGS #### [facility] [address] [place] [address] Dr. Leni Hamlin Potassium [Moles/Vol] 4.2 mmol/L Normal 3.5-5.1 [facility] Comment on above: Performed By: #### C VDAGS #### [facility] [address] [place] [address] Dr. Leni Hamlin Sodium [Moles/Vol] 135 mmol/L Critically low 136-145 [facility] Comment on above: Performed By: #### C VDAGS #### [facility] [address] [place] [address] Dr. Leni Hamlin Urea nitrogen [Mass/Vol] 25.0 mg/dL Critically high 7.0-18.0 [facility] Comment on above: Performed By: #### C VDAGS #### [facility] [address] [place] [address] Dr. Leni Hamlin Urea nitrogen/Creatinine [Mass ratio] 13.4 mg/mg Normal [facility] Comment on above: Performed By: #### C VDAGS #### [facility] [address] [place] [address] Dr. Leni Hamlin Anion gap [Moles/Vol] 10.7 mmol/L Normal [facility] Comment on above: Performed By: #### B MP, BNP #### [facility] [address] [place] [address] Dr. Leni Hamlin Calcium [Mass/Vol] 8.2 mg/dL Critically low 8.5-10.1 [facility] Comment on above: Performed By: #### B MP, BNP #### [facility] [address] [place] [address] Dr. Leni Hamlin Chloride [Moles/Vol] 101 mmol/L Normal 98-107 [facility] Comment on above: Performed By: #### B MP, BNP #### [facility] [address] [place] [address] Dr. Leni Hamlin CO2 [Moles/Vol] 30.0 mmol/L Normal 21.0-32.0 [facility] Comment on above: Performed By: #### B MP, BNP #### [facility] [address] [place] [address] Dr. Leni Hamlin Creatinine [Mass/Vol] 1.49 mg/dL Critically high 0.70-1.30 [facility] Comment on above: Performed By: #### B MP, BNP #### [facility] [address] [place] [address] Dr. Leni Hamlin EGFR-AF NIGERIEN 56 mL/min/1.73m2 Critically low >=60 [facility] Comment on above: Performed By: #### B MP, BNP #### [facility] [address] [place] [address] Dr. Leni Hamlin EGFR-NON AF NIGERIEN 46 mL/min/1.73m2 Critically low >=60 [facility] Comment on above: Performed By: #### B MP, BNP #### [facility] [address] [place] [address] Dr. Leni Hamlin Glucose [Mass/Vol] 158 mg/dL Critically high 74-106 [facility] Comment on above: Performed By: #### B MP, BNP #### [facility] [address] [place] [address] Dr. Leni Hamlin Potassium [Moles/Vol] 5.7 mmol/L Critically high 3.5-5.1 [facility] Comment on above: Performed By: #### B MP, BNP #### [facility] [address] [place] [address] Dr. Leni Hamlin Sodium [Moles/Vol] 136 mmol/L Normal 136-145 [facility] Comment on above: Performed By: #### B MP, BNP #### [facility] [address] [place] [address] Dr. Leni Hamlin Urea nitrogen [Mass/Vol] 19.0 mg/dL Critically high 7.0-18.0 [facility] Comment on above: Performed By: #### B MP, BNP #### [facility] [address] [place] [address] Dr. Leni Hamlin Urea nitrogen/Creatinine [Mass ratio] 12.8 mg/mg Normal [facility] Comment on above: Performed By: #### B MP, BNP #### [facility] [address] [place] [address] Dr. Leni Hamlin BNPon 03-12-2022 Natriuretic peptide B (Bld) [Mass/Vol] 405.0 pg/mL Normal <=900.0 The [facility] Comment on above: Performed By: #### B MP, BNP #### [facility] [address] [place] [address] Dr. Leni Hamlin CBC AUTO DIFFon 03-12-2022 BASO # 0.1 103/ul Normal 0.0-0.1 [facility] Comment on above: Performed By: #### C BC #### [facility] [address] [place] [address] Dr. Leni Hamlin Basophils/100 WBC (Bld) 0.3 % Normal 0.2-2.0 [facility] Comment on above: Performed By: #### C BC #### [facility] [address] [place] [address] Dr. Leni Hamlin EO # 0.0 103/ul Normal 0.0-0.7 [facility] Comment on above: Performed By: #### C BC #### [facility] [address] [place] [address] Dr. Leni Hamlin Eosinophils/100 WBC (Bld) 0.1 % Critically low 0.9-7.0 [facility] Comment on above: Performed By: #### C BC #### [facility] [address] [place] [address] Dr. Leni Hamlin Erythrocyte distribution width (RBC) [Ratio] 13.3 % Normal 11.0-15.0 [facility] Comment on above: Performed By: #### C BC #### [facility] [address] [address] [address] Leni Hamlin Hematocrit (Bld) [Volume fraction] 52.2 % Normal 42.0-54.0 [facility] Comment on above: Performed By: #### C BC #### [facility] [address] [address] [address] Leni Hamlin Hemoglobin (Bld) [Mass/Vol] 16.5 g/dL Normal 14.0-18.0 [facility] Comment on above: Performed By: #### C BC #### [facility] [address] [address] [address] Leni Hamlin IG # 0.19 10e3/ul Critically high 0.00-0.03 [facility] Comment on above: Performed By: #### C BC #### [facility] [address] [place] [address] Dr. Leni Hamlin IG % 1.0 % Critically high 0.0-0.5 [facility] Comment on above: Performed By: #### C BC #### [facility] [address] [address] [address] Leni Hamlin LYMPH # 0.8 103/ul Critically low 1.2-3.8 [facility] Comment on above: Performed By: #### C BC #### [facility] [address] [place] [address] Dr. Leni Hamlin Lymphocytes/100 WBC (Bld) 3.8 % Critically low 20.5-60.0 [facility] Comment on above: Performed By: #### C BC #### [facility] [address] [address] [address] Leni Hamlin MANUAL DIFF REQ NO Normal [facility] Comment on above: Performed By: #### C BC #### [facility] [address] [address] [address] Leni Hamlin MCH (RBC) [Entitic mass] 29.6 pg Normal 25.9-34.0 [facility] Comment on above: Performed By: #### C BC #### [facility] [address] [address] [address] Leni Hamlin MCHC (RBC) [Mass/Vol] 31.6 g/dL Normal 29.9-35.2 [facility] Comment on above: Performed By: #### C BC #### [facility] [id number] Leni Hamlin MCV (RBC) [Entitic vol] 93.7 fL Normal 80.0-94.0 [facility] Comment on above: Performed By: #### C BC #### [facility] [id number] Leni Hamlin MONO # 1.6 103/ul Critically high 0.3-0.8 [facility] Comment on above: Performed By: #### C BC #### [facility] [id number] Leni Hamlin Monocytes/100 WBC (Bld) 8.3 % Normal 1.7-12.0 [facility] Comment on above: Performed By: #### C BC #### [facility] [address] [address] [address] Leni Hamlin NEUT # 17.0 103/ul Critically high 1.4-6.[address] [facility] Comment on above: Performed By: #### C BC #### [facility] [id number] Leni Hamlin Neutrophils/100 WBC (Bld) 86.5 % Critically high 43.0-75.0 The [facility] Comment on above: Performed By: #### C BC #### [facility] [id number] Leni Hamlin Platelet mean volume (Bld) [Entitic vol] 10.0 fL Normal 9.5-13.5 [facility] Comment on above: Performed By: #### C BC #### [facility] [address] [place], [place] [id number] Dr. Leni Hamlin PLT 194 103/ul Normal 150-450 [facility] Comment on above: Performed By: #### C BC #### [facility] [address] [address] [address] Leni Hamlin RBC 5.57 106/ul Normal 4.70-6.10 [facility] Comment on above: Performed By: #### C BC #### [facility] [address] [address] [address] Leni Hamlin WBC 19.7 103/ul Critically high 4.0-11.0 [facility] Comment on above: Performed By: #### C BC #### [facility] [id number] Leni Hamlin CT CSPINE WO CONon [...] CIERA HERNÁNDEZ Date: 2022-03-12 13:42 Normal The [facility] CT HEAD WO CONon 03-12-2022 CT HEAD [...] SUSAN KC Date: 2022-03-12 13:20 Normal The [facility] CTA CHEST WO W CONon 022 CTA [...] rather than atelectasis. Electronically authenticated by: CIERA HERNÁNDEZ Date: 2022-03-12 14:46 Normal The [facility] CULTURE BLOODon 03-12-2022 Microscopic examination of blood, culture Culture Observations: NO GROWTH AT 5 DAYS. Normal The [facility] Comment on above: Performed By: #### C MP, CRP #### [facility] [address] [place] [address] Dr. Leni Hamlin Microscopic examination of blood, culture Culture Observations: NO GROWTH AT 5 DAYS. Normal The [facility] Comment on above: Performed By: #### C MP, CRP #### [facility] [address], [place] [address] Dr[address] Leni Hamlin Covid-19 PCR ([facility])on SARS-CoV-2 (COVID-19) RNA VENESSA+probe Ql (Unsp spec) Not detected Normal NOT DETECTED The [facility] Comment on above: Result Comment: When diagnostic testing is negative, the possibility of a false negative should be considered in the context of a patient's recent exposures and the presence of clinical signs and symptoms consistent with SARS-CoV-2. This test is not yet approved or cleared by the [place] Food and Drug Administration (FDA). This test was developed by [employer], [place], [place]. The performance characteristics of this test were validated by The [facility]. The results are not intended to be used as the sole means for clinical diagnosis or patient management decisions. The [facility] is authorized under Clinical Laboratory Improvement Amendments [...] for this test is supported by the [place] of [employer] and Human Service's declaration that [...] used). Performed By: #### C RP #### [facility] [address], [place] [address] Dr[address] Leni Hamlin D-DIMERon 03-12-2022 D-DIMER 6.00 mg/L FEU Critically high 0.19-0.50 [facility] Comment on above: Performed By: #### B MP, BNP #### [facility] [address], [place] [address] Dr[address] Leni Hamlin D-DIMER COMMENTS SEE BELOW Normal [facility] Comment on above: Result Comment: Incr [...] Performed By: #### B MP, BNP #### [facility] [address] [place] [address] Dr. Leni Hamlin ER URINE PROFILEon 2 Bilirubin Ql (U) Negative Normal NEGATIVE [facility] Comment on above: Performed By: #### C RP #### [facility] [address] [place] [address] Dr. Leni Hamlin Clarity (U) CLEAR Normal CLEAR [facility] Comment on above: Performed By: #### C RP #### [facility] [address] [place] [address] Dr. Leni Hamlin Color (U) YELLOW Normal YELLOW [facility] Comment on above: Performed By: #### C RP #### [facility] [address] [place] [address] Dr. Leni ELLIS A micrscopic examination will be performed if indicated. Normal The [facility] Comment on above: Performed By: #### C RP #### [facility] [address] [place] [address] Dr. Leni Hamlin Glucose Ql (U) Negative Normal NEGATIVE [facility] Comment on above: Performed By: #### C RP #### [facility] [address] [place] [address] Dr. Leni Hamlin Hemoglobin Ql (U) SMALL Abnormal NEGATIVE [facility] Comment on above: Performed By: #### C RP #### [facility] [address] [place] [address] Dr. Leni Hamlin Ketones Ql (U) Negative Normal NEGATIVE [facility] Comment on above: Performed By: #### C RP #### [facility] [address] [place] [address] Dr. Leni Hamlin LEUKOCYTES Negative Normal NEGATIVE [facility] Comment on above: Performed By: #### C RP #### [facility] [address] [place] [address] Dr. Leni Hamlin Nitrite Ql (U) Negative Normal NEGATIVE [facility] Comment on above: Performed By: #### C RP #### [facility] [address] [place] [address] Dr. Leni Hamlin pH (U) 5.5 [pH] Normal 5-9 [facility] Comment on above: Performed By: #### C RP #### [facility] [address] [place] [address] Dr. Leni Hamlin SPEC GRAVITY <=1.005 Abnormal 1.005-<=1.025 [facility] Comment on above: Performed By: #### C RP #### [facility] [address] [place] [address] Dr. Leni Hamlin UA PROTEIN >300 Abnormal NEGATIVE/ TRACE [facility] Comment on above: Performed By: #### C RP #### [facility] [address] [place] [address] Dr. Leni Hamlin UR MICRO IND INDICATED Normal [facility] Comment on above: Performed By: #### C RP #### [facility] [address] [place] [address] Dr. Leni Hamlin Urobilinogen Qn (U) 0.2 {Stacy'U}/dL Normal 0.2 - 1. 0 [facility] Comment on above: Performed By: #### C RP #### [facility] [address] [place] [address] Dr. Leni Hamlin LACTATE/LACTIC ACIDon 2021 Lactate [Moles/Vol] 0.5 mmol/L Normal 0.4-2.0 [facility] Comment on above: Performed By: #### B MP, BNP #### [facility] [address] [place] [address] Dr. Leni Hamlin Lactate [Moles/Vol] 1.6 mmol/L Normal 0.4-2.0 [facility] Comment on above: Performed By: #### L ACT #### [facility] [address] [address] [address] Leni Hamlin PROF 14(COMP METB)on 022 Albumin [Mass/Vol] 3.1 g/dL Critically low 3.4-5.0 [facility] Comment on above: Performed By: #### B MP, BNP #### [facility] [address] [place] [address] Dr. Leni Hamlin Albumin/Globulin [Mass ratio] 0.8 {ratio} Normal [facility] Comment on above: Performed By: #### B MP, BNP #### [facility] [address] [place] [address] Dr. Leni Hamlin ALP [Catalytic activity/Vol] 52 U/L Normal 46-116 [facility] Comment on above: Performed By: #### B MP, BNP #### [facility] [address] [place] [address] Dr. Leni Hamlin ALT [Catalytic activity/Vol] 27 U/L Normal 16-63 [facility] Comment on above: Performed By: #### B MP, BNP #### [facility] [address] [place] [address] Dr. Leni Hamlin Anion gap [Moles/Vol] 12.9 mmol/L Normal [facility] Comment on above: Performed By: #### B MP, BNP #### [facility] [address] [place] [address] Dr. Leni Hamlin AST [Catalytic activity/Vol] 14 U/L Critically low 15-37 [facility] Comment on above: Performed By: #### B MP, BNP #### [facility] [address] [place] [address] Dr. Leni Hamlin Bilirubin [Mass/Vol] 1.2 mg/dL Critically high 0.2-1.0 [facility] Comment on above: Performed By: #### B MP, BNP #### [facility] [address] [place] [address] Dr. Leni Hamlin Calcium [Mass/Vol] 8.2 mg/dL Critically low 8.5-10.1 Th e [facility] Comment on above: Performed By: #### B MP, BNP #### [facility] [address] [place] [address] Dr. Leni Hamlin Chloride [Moles/Vol] 99 mmol/L Normal 98-107 [facility] Comment on above: Performed By: #### B MP, BNP #### [facility] [address] [place] [address] Dr. Leni Hamlin CO2 [Moles/Vol] 28.4 mmol/L Normal 21.0-32.0 [facility] Comment on above: Performed By: #### B MP, BNP #### [facility] [address] [place] [address] Dr. Leni Hamlin Creatinine [Mass/Vol] 1.44 mg/dL Critically high 0.70-1.30 [facility] Comment on above: Performed By: #### B MP, BNP #### [facility] [address] [place] [address] Dr. Leni Hamlin EGFR-AF NIGERIEN 58 mL/min/1.73m2 Critically low >=60 [facility] Comment on above: Performed By: #### B MP, BNP #### [facility] [address] [place] [address] Dr. Leni Hamlin EGFR-NON AF NIGERIEN 48 mL/min/1.73m2 Critically low >=60 [facility] Comment on above: Performed By: #### B MP, BNP #### [facility] [address] [place] [address] Dr. Leni Hamlin Globulin (S) [Mass/Vol] 3.8 g/dL Normal [facility] Comment on above: Performed By: #### B MP, BNP #### [facility] [address] [place] [address] Dr. Leni Hamlin Glucose [Mass/Vol] 137 mg/dL Critically high 74-106 [facility] Comment on above: Performed By: #### B MP, BNP #### [facility] [address] [place] [address] Dr. Leni Hamlin Potassium [Moles/Vol] 4.3 mmol/L Normal 3.5-5.1 [facility] Comment on above: Performed By: #### B MP, BNP #### [facility] [address] [place] [address] Dr. Leni Hamlin Protein [Mass/Vol] 6.9 g/dL Normal 6.1-8.2 [facility] Comment on above: Performed By: #### B MP, BNP #### [facility] [address] [place] [address] Dr. Leni Hamlin Sodium [Moles/Vol] 136 mmol/L Normal 136-145 [facility] Comment on above: Performed By: #### B MP, BNP #### [facility] [address] [place] [address] Dr. Leni Hamlin Urea nitrogen [Mass/Vol] 15.0 mg/dL Normal 7.0-18.0 [facility] Comment on above: Performed By: #### B MP, BNP #### [facility] [address] [place] [address] Dr. Leni Hamlin Urea nitrogen/Creatinine [Mass ratio] 10.4 mg/mg Normal [facility] Comment on above: Performed By: #### B MP, BNP #### [facility] [address] [place] [address] Dr. Leni Hamlin PROTIMEon 03-12-2022 INR Coag (PPP) [Relative time] 1.07 {INR} Normal [facility] Comment on above: Performed By: #### B MP, BNP #### [facility] [address] [place] [address] Dr. Leni Hamlin INR GUIDELINES SEE BELOW Normal [facility] Comment on above: Result Comment: WAQAS RED INR: 2.0 - 3.0 CONDITIONS NOT LISTED BELOW 2.5 - 3.5 FOR PROSTHETIC HEART VALVE REPLACEMENT 2.5 - 3.5 RECURRENT THROMBOSIS Performed By: #### B MP, BNP #### [facility] [address] [place] [address] Dr. Leni Hamlin PT Coag (PPP) [Time] 11.5 s Normal 9.0-11.6 [facility] Comment on above: Performed By: #### B MP, BNP #### [facility] [address] [place] [address] Dr. Leni Hamlin TROPONIN, HIGH SENSITIVITYon 03-12-2022 HSTROP 12.8 pg/mL Normal 4.0-76.1 [facility] Comment on above: Result Comment: CUT- OFF POINTS HAVE BEEN ESTABLISHED BASED ON THE FOURTH UNIVERSAL DEFINITIONS OF MYOCARDIAL INFARCTION. THE UPPER REFERENCE LIMIT (URL) OF TROPONIN, DEFINED THE 99TH PERCENTILE OF cTnI DISTRIBUTION IN A REFERENCE POPULATION, HAS BEEN CONFIRMED THE DECISION THRESHOLD FOR [place] DIAGNOSIS. Performed By: #### B MP, BNP #### [facility] [address] [place] [address] Dr. Leni Hamlin URINE MICROSCOPIC ONLYon BACTERIA NONE SEEN Normal NONE SEEN [facility] Comment on above: Performed By: #### C RP #### [facility] [address] [place] [address] Dr. Leni Hamlin Bacteria identified Cx Nom (U) NOT INDICATED Normal [facility] Comment on above: Performed By: #### C RP #### [facility] [address] [place] [address] Dr. Leni Hamlin CAST NONE SEEN Normal NONE SEEN The [facility] Comment on above: Performed By: #### C RP #### [facility] [address] [place] [address] Dr. Leni Hamlin Crystals LM Nom (Urine sed) NONE SEEN Normal NONE SEEN [facility] Comment on above: Performed By: #### C RP #### [facility] [address] [place] [address] Dr. Leni Hamlin Epithelial cells LM Ql (Urine sed) NONE SEEN Normal NONE SEEN /RARE [facility] Comment on above: Performed By: #### C RP #### [facility] [address] [place] [address] Dr. Leni Hamlin MUCOUS MODERATE Abnormal NONE SEEN The [facility] Comment on above: Performed By: #### C RP #### [facility] [address] [place] [address] Dr. Leni Hamlin RBC 2-5 Abnormal 0-2 [facility] Comment on above: Performed By: #### C RP #### [facility] [address], [place] [address] Dr. Leni Hamlin WBC NONE SEEN Normal NONE SEEN [facility] Comment on above: Performed By: #### C RP #### [facility] [address], [place] [address] Dr. Leni Hamlin XR RIBS RT PA [...] CIERA HERNÁNDEZ Date: 2022-03-12 13:35 Normal [facility] Covid-19 PCR (CVDTB)on 01-09 SARS-CoV-2 (COVID-19) RNA VENESSA+probe Ql (Unsp spec) Not detected Normal NOT DETECTED [facility] Comment on above: Result Comment: This test is not yet approved or cleared by the [place] FDA. When there are no FDA-approved or cleared tests available, and other criteria are met, FDA can make tests available under an emergency access mechanism called an Emergency Use Authorization (EUA). The EUA for this test is supported by the K9 Handler of Health and Human Service's (HHS's) declaration [...] SARS-CoV-2. Performed By: #### C RP #### [facility] [address] [place] [address] Dr. Leni Hamlin INFLUENZA A AND B AGon 01-25 [facility] SEE BELOW Normal [facility] Comment on above: Result Comment: Nega tive for Flu A protein angiten. Infection due to Flu A cannot be ruled out. Flu A angiten in the sample may be below the detection limit of the test. Performed By: #### C RP #### [facility] [address] [place] [address] [facility] SEE BELOW Normal [facility] Comment on above: Result Comment: Nega tive for Flu B protein antigen. Infection due to Flu B cannot be ruled out. Flu B antigen in the sample may be below the detection limit of the test. Performed By: #### C RP #### [facility] [address] [place] [address] Dr. Leni Hamlin INFLUENZA A AG Negative Normal NEGATIVE SEE COMMENT [facility] Comment on above: Performed By: #### C RP #### [facility] [address] [place] [address] Dr. Leni Hamlin INFLUENZA B AG Negative Normal NEGATIVE SEE COMMENT [facility] Comment on above: Performed By: #### C RP #### [facility] [address] [place] [address] Dr. Leni Hamlin INTERNAL CONTROLS Within Normal Limits Normal Wi thin Normal Limits [facility] Comment on above: Performed By: #### C RP #### [facility] [address] [place] [address] Dr. Leni Hamlin COVID-19 Antigenon 2 COVID-19 [...] its performance Cindy Disclaimer characteristic determined by [email or web address] and Cindy Disclaimer validated at [facility]. This Cindy Disclaimer test has not been [...] is terminated or revoked sooner. PERFORMED BY: [place] [address] PATHOLOGIST FULL STACK NET DEVELOPER ZOHAIB JEWELL M.D. [facility] Comment on above: Performed By: #### C OVID-19 CINDY, SOFIANEG #### [place] [id number] [facility] Cindy Ag Negativeon 12-01-19 Cindy Ag Negative Negative Normal Negative [facility] Comment on above: Result Comment: This is a duplicate Cindy SARS Antigen (JENNIFER) result to be used for statistical tracking purpose only. PERFORMED BY: [place] [address] PATHOLOGIST FULL STACK NET DEVELOPER ZOHAIB JEWELL M.D. Performed By: #### C OVID-19 CINDY, SOFIANEG #### [place] [id number] [facility] Encounters Encounter Date Encounter Type Care Provider Facility Start: 02-26-2024 End: 02-26-2024 [facility] Start: 01-31-2024 End: [facility]31[facility]: 01-27-2024 End: 01-28-2024 ambulatory Urvashi Rawls MD Facility: [facility] Start: 12-30-2023 End: 12-31-2023 ambulatory Urvashi Rawls MD Facility:[facility] Start: 09-16-2023 End: 09-17-2023 ambulatory Urvashi Rawls MD Facility:[facility] Start: 08-27-2023 End: 08-27-2023 ambulatory [facility] Start: 07-09-2023 End: 07-09-2023 ambulatory [facility] Start: 06-24-2023 End: 06-25-2023 ambulatory Urvashi Rawls MD Facility:[facility] Start: 06-10-2023 End: 06-11-2023 ambulatory Urvashi Rawls MD Facility:[facility] Start: 05-27-2023 End: 05-28-2023 ambulatory Urvashi Rawls MD Facility:[facility] Start: 05-13-2023 End: 05-13-2023 ambulatory [facility] Start: 05-08-2023 ambulatory [facility] Start: 04-09-2023 End: 04-09-2023 ambulatory [facility] Start: 03-29-2023 End: 03-30-2023 ambulatory [facility] Start: 03-26-2023 End: 03-27-2023 ambulatory [facility] Start: 03-26-2023 End: 03-26-2023 ambulatory [facility] Start: 03-15-2023 End: 03-16-2023 ambulatory [facility] Start: 02-27-2023 End: 02-28-2023 ambulatory ELLIOT Maximino [facility] Start: 01-16-2023 End: 01-16-[address] ELLIOT CHESTER . Facility:[facility] Start: 12-27-[address] ELLIOT CHESTER . Facili ty:[facility] Start: 12-18-2022 End: 12-18-[address] CLIFTON JHAVERI Facility:[facility] Start: 10-01-2022 End: 10-03-2022 Evaluation and management of inpatient DR ELLIOT CHESTER . Facility:[facility] Start: 09-10-2022 End: 09-10-[address] ELLIOT CHESTER . Facility:[facility] Start: 08-24-[address] ELLIOT CHESTER . [facility] ty:[facility] Start: 05-22-2022 End: 05-22-2022 ambulatory GAGANDEEP PAREDES Facility:[facility] Start: 05-21-2022 End: 05-21-2022 ambulatory GAGANDEEP PAREDES Facility:[facility] Start: 04-23-2022 End: 04-23-[address] ELLIOT CHESTER . Facility:[facility] Start: 03-23-2022 End: 03-24-2022 ambulatory MODESTO BECERRA Facility:[facility] Start: 03-22-2022 End: 03-23-2022 ambulatory MODESTO BECERRA Facility:[facility] Start: 03-20-2022 End: 03-21-[address] ELLIOT CHESTER . Facility:[facility] Start: 03-13-2022 End: 03-15-2022 Evaluation and management of inpatient DR ELLIOT CHESTER . Facility:[facility] Start: 01-25-2022 End: 01-25-2022 ambulatory GAGANDEEP PAREDES Facility:[facility] Payers Date Payer Category Payer Medicare 2022 Unknown 1959 Medicare [id number] 1961 Self-pay 1959 Unknown [id number] 1948 Unknown [id number] 2.16.8 [id number] 1948 Unknown [id number] 2.16.84 0.1.517288.3.579.2.593 1948 Unknown [id number] 2.16.84 0.1.690751.3.579.2.593 1948 Unknown [id number] 2.16.84 0.1.064207.3.579.2.593 1948 Unknown [id number] 2.16.84 0.1.118673.3.579.2.593 1948 Unknown [id number] 2.16.84 0.1.167711.3.579.2.593 1948 Unknown [id number] 2.16.84 0.1.901995.3.579.2.593 1948 Unknown [id number] 2.16.84 0.1.176075.3.579.2.593 1948 Unknown [id number] 2.16.84 0.1.972150.3.579.2.593 1948 Unknown [id number] 2.16.84 0.1.016790.3.579.2.593 1948 Unknown [id number] 2.16.84 0.1.853803.3.579.2.593 1948 Unknown [id number] 2.16.84 0.1.942627.3.579.2.593 1948 Unknown [id number] 2.16.84 0.1.402494.3.579.2.593 1948 Unknown [id number] 2.16.84 0.1.347595.3.579.2.593 1948 Unknown [id number] 2.16. 840.1.853911.3.579.2.196 1948 Unknown [id number] 2.16. 840.1.941120.3.579.2.196 1948 Unknown [id number] 2.16. 840.1.306413.3.579.2.196 1948 Unknown [id number] 2.16. 840.1.444104.3.579.2.196 1948 Unknown [id number] 2.16. 840.1.559587.3.579.2.196 1948 Unknown [id number] 2.16. 840.1.163289.3.579.2.196 Progress note 01-31-2024 Note Date & Type Note Facility 01-31-2024 Note Patient here for 6 m o follow up claudication and SSS s/p PPM. He is scheduled for routine device interrogation next month. No testing or lab results since last visit in Aug 2023. Has not been taking aspirin or atorvastatin for awhile he says. He's seeing pain management for his legs and injections are helping. Denies chest pain, SOB, palpitations, and lightheadedness/syncope. Says he's not taking atorvastatin because his building inspection engineer told him it was not good for his kidneys. Review of Systems Constitutional: Positive for malaise/fatigue. Cardiovascular: Positive for claudication. Musculoskeletal: Positive for arthritis, back pain, joint pain, muscle weakness and myalgias. All other systems reviewed and are negative. [facility] Progress note 08-27-2023 Note Date & Type Note Facility [...] a [address] [facility]. Lipid profile was done in May 2023. [facility] Progress note 08-27-2023 Note Date & Type Note Facility 08-27-2023 Note [place] [facility] Note [facility] Reason for visit: follow up for PVD HPI: Brian Oneal is a 73 y.o. year old with past medical history of SSS s/p PPM and PVD. He presents to cardiology clinic for routine follow up. Patient states that he is doing well. Patient adamantly denies any cardiac complaints or concerns. Patient denies any chest pain or shortness of breath. Patient denies any lower extremity edema, orthopnea, or proximal nocturnal dyspnea. No near-syncope or syncope. No dizziness or lightheadedness. Patient states that he has been receiving joint injections in lower extremities, and that has completely resolved pain. 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 Patient had exercise ABIs performed. SAGAR is 0.89 on right and 0.87 on left. Immediately post exercise, SAGAR is 0.85 on right and 0.68 on left. Patient denies any lower extremity claudication since his lower extremity joint injections. ----- Previous HPI per. Dr. Becerra 04/2022: [...] was initiated by the patient and conducted [id number] with use of audio-only real time telephone [...] night many times use restroom since his prost (more content not included)... [facility] Progress note 05-13-2023 Note Date & Type Note Facility 05-13-2023 Note [place] Cardiology Note [facility] Reason for visit: lower extremity claudication [...] was initiated by the patient and conducted [id number] with use of audio-only real time telephone [...] night many times (more content not included)... [facility] Progress note 05-13-2023 Note Date & Type Note Facility 05-13-2023 Note Patient here c/o LE numbness and pain during ambulation and standing. He had EMG and SAGAR's in March 2023. He sees Dr. Chester this afternoon. Recently saw neurosurgery and vascular surgery at [facility]. Dr. Quinonez started him on low dose aspirin and atorvastatin last week, which he states he has not started yet. He denies chest pain, SOB, and syncope. Review of Systems Constitutional: Positive for malaise/fatigue. Cardiovascular: Positive for claudication and leg swelling. Musculoskeletal: Positive for arthritis, back pain, muscle weakness and myalgias. All other systems reviewed and are negative. [facility] Progress note 05-08-2023 Note Date & Type Note Facility 05-08-2023 Note This is a 73-year-ol d [...] will see him in about 3 months. [facility] Progress note 05-08-2023 Note Date & Type Note Facility 05-08-2023 Note HPI Brian Oneal is a [...] being on aspirin (more content not included)... 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 He undertook some type of decompressive [...] Final Atrial Rate 03/22/2022 76 BPM Final AR Interval 03/22/2022 162 ms Final QRS DURATION 03/22/2022 144 ms Final QT Interval 03/22/2022 392 ms Final QTC CALCULATION(BAZETT) 03/22/2022 441 ms Final P Jackson 03/22/2022 -14 degrees Final R-Jackson 03/22/2022 -20 degrees Final T Wave Jackson 03/22/2022 -6 degrees Final Diagnosis 03/22/2022 Final [...] No definite e (more content not included)... [facility] Progress note 03-26-2023 Note Date & Type Note Facility 03-26-2023 Note Neurosurgery Consult Chief Complaint: Back and leg pain. History of Present Illness: Brian Oneal is a 72 y.o. male who presents in kind referral from Dr. Chester for evaluation of lumbar degenerative disease with back and leg pain. 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 He undertook some type of decompressive [...] Value Ref Range (more content not included)... [facility] Clinical Note 03-23-2022 Note Date & Type Note Facility 03-23-2022 Note EXAM: XR CHEST 2 V [...] authenticated by: ALONSO MASON Date: 2022-03-23 12:58 [facility] Summary Purpose Family History No Family History [...] section and content) DATE CREATED AUTHOR 01/29/2022 [facility] DATE CREATED AUTHOR AUTHOR'S ORGANIZ ATION 04/23/2022 [facility] DATE CREATED AUTHOR AUTHOR'S ORGANIZ ATION 01/18/2023 [facility] DATE CREATED AUTHOR AUTHOR'S ORGANIZ ATION 02/01/2024 [facility] DATE CREATED AUTHOR AUTHOR'S ORGANIZ ATION 02/27/2024 [facility] FOR RECORDS PERTAINING TO PATIENTS WHO [...] BE BASED ON THE PRIMARY CLINICAL RECORDS. [employer] [facility]. provides no warranty or guarantee of the accuracy or completeness of information in this document.
[2024-03-02 08:21] VITALS: BP 134/87; PULSE 80; TEMP 36.3; O2SAT 94
[2024-03-02 09:07] VITALS: BP 124/74; PULSE 77; O2SAT 93
[2024-03-02 09:08] VITALS: BP 149/72; PULSE 78; O2SAT 94
--- NOTE | 2024-03-02 09:10 | W.PM.PROCNOT ---
Date of procedure: 03/02/24 Pre-op diagnosis: Lumbar spondylosis Post-op diagnosis: same as pre-op Procedure: Procedure: Bilateral L4-5, L5-S1 medial branch block Medications: Bupivacaine 0.25% 6cc The patient was seen and examined in the preoperative holding area.? An informed consent was obtained and placed on the chart.? The patient was brought to the medical procedure unit and placed in the prone position.? A timeout was completed verifying correct patient, procedure site, positioning, plan, and special equipment.? Using aseptic technique, the needle was placed at left L4. Under direct fluoroscopic visualization a Quincke-tipped spinal needle was advanced to the junction of the superior articulating process with the transverse process at the designated medial branch segment.? Preceded by negative aspiration, the above-mentioned injectate was placed in 1 mL aliquots.? The procedure was repeated at left L5, S1.? The needle was removed and insertion site was covered. The same procedure, at the same levels, was completed on the right side. The patient was taken to the postprocedural recovery area and monitored for an appropriate length of time before found suitable for discharge in the company of a responsible adult. Anesthesia: Local Surgeon: Urvashi Rawls Pathology: none sent Condition: stable Disposition: no change
[2024-03-02] MEDS: LIDOCAINE HCL 2% 400 MG/20 ML MDV INJ (09:11)
[2024-03-02] MEDS: BUPIVACAINE HCL 0.25% PF 25 MG/10 ML VIAL 8 ML INJ (09:11)
== END 2024-03-02 09:19 | disposition home or self-care (01) ==
PROVIDERS: PCP Family Medicine; Visit Provider Anesthesiology
DX: M47.816 Spondylosis without myelopathy or radiculopathy, lumbar region (principal)
CPT/HCPCS: 64493; 64494

== ENCOUNTER 2024-03-07 09:39 | Inpatient (IN) | payer MEDICARE, OTHER, SELFPAY ==
[2024-03-07] VITALS (35 sets, daily range): BP systolic 113–151; BP diastolic 48–80; PULSE 67–113; TEMP 36.8–37.7; O2SAT 81–96; BMI 33.8; BMI 33.3
--- OUTSIDE RECORDS SUMMARY | 2024-03-07 09:51 | XMS_ITS | CCD ---
Author Organization [facility] Care Team Providers Care Diabetes Education Coordinator Name Role Phone MODESTO BECERRA Admitting Unavailable [...] Unavailable HOY ., DR ZARATE Admitting Unavailable ALGHOTHANI, MOHAMAD Attending Unavailable ALGHOTHANI, MOHAMAD Attending Unavailable FRANCISCO MODESTO Referring Unavailable ALGHOTHANI, MOHAMAD Attending Unavailable THELMA, RADU Referring Unavailable THELMA, RADU Referring Unavailable HOY, ELLIOT Referring Unavailable THELMA, RADU Referring Unavailable THELMA, RADU Attending Unavailable JONAS, MOHAMED Attending Unavailable THELMA, RADU Referring Unavailable THELMA, RADU Attending Unavailable FRANCISCO, MODESTO Referring Unavailable Giedraitis MD, Andrius Vytautclaritza Attending Unavailable Giedraitis MD, Andrius Vytautas Attending Unavailable Giedraitis MD, Andrius Vytautas Attending Unavailable Giedraitis MD, Andrius Vytautas Attending Unavailable Giedraitis MD, Andrius Vytautas Attending Unavailable Giedraitis MD, Andrius Vytautas Attending Unavailable Giedraitis MD, Andrius Vytautas Attending Unavailable Allergies Allergy Classification Reported Allergen(s) Allergy Type Date of Onset Reaction(s) Facility (2 sources) Azithromycin; Translations: [AZITHROMYCIN] Drug Allergy 03-22-2022 [facility] Repository (2 sources) Azithromycin Drug Allergy 03-03-2015 [facility] Repository (1 source) Ciprofloxacin Drug Allergy 12-18-2022 [facility] Problems Active Problems Problem Classification [...] 10-01-2022 Episodic Other aftercare (1 source) Other snf (current) drug therapy; Translations: [OTH RETIREMENT CURRENT DRUG THERAPY] Onset: 03-19-2022 Episodic Pneumonia [...] Range Facility Office Visiton 08-27-2023 Follow-up visit [id number] Wayne Oneal 1950 M Date Provider Department Center 08/27/2023 MAJOR ALMEIDA Family History Problem Relation Age of Onset Coronary artery disease Mother Family Status - Relation Status Age at Mother Level of Service:39260 DE OFFICE/OUTPATIENT ESTABLISHED LOW MDM 20-29 MIN [facility] Office Visiton 05-13-2023 Follow-up visit [id number] Wayne Oneal 1950 M Date Provider Department Center 05/13[facility] Family History Problem Relation Age of Onset Coronary artery disease Mother Family Status - Relation Status Age at Mother Level of Service:43525 DE OFFICE/OUTPATIENT ESTABLISHED MOD MDM 30-39 MIN [facility] Orders Onlyon 05-13-2023 Orders Only [id number] Wayne Oneal A 1950 M Date Provider Department Center 05/13/2023 BRAYAN AGUDELO CARD [facility] Family History Problem Relation Age of Onset Coronary artery disease Mother Family Status - Relation Status Age at Mother [facility] 29on 05-08-2023 29 Addended by: LEANA HENNING on: 05/09/2023 01:46 PM Modules accepted: Orders [facility] Consulton 05-08-2023 Consult [id number] Wayne Oneal A 1950 M Date Provider Department Center 05/08/2023 384-JOSE QUINONEZ CVASENDO [facility] Family History Problem Relation Age of Onset Coronary artery disease Mother Family Status - Relation Status Age at Mother Level of Service:57285 DE OFFICE/OUTPATIENT NEW MODERATE MDM 45-59 MINUTES Reason for Visit and Comments: New Patient [632] - Numbness in bilateral legs [facility] Follow-Upon 04-09-2023 Follow-Up [id number] Wayne Oneal A 1950 M Date Provider Department Center 04/09/2023 [facility] Family History Problem Relation Age of Onset Coronary artery disease Mother Family Status - Relation Status Age at Mother Level of Service:58243 DE OFFICE/OUTPATIENT ESTABLISHED LOW MDM 20-29 MIN Reason for Visit and Comments: Follow-up [[id number]] - follow up s/p SAGAR, XR; When patient bends over it tends to pull his back muscles and when he gets back up he is in pain. Walking a long distance he is in lots of pain. [facility] 36on 04-02-2023 36 Pt was called and scheduled a follow up with Dr. Renee to review results. [facility] 36 Brian is asking fo r an answer to left lower back pain. Had the US done and is not having any relief in his back. [facility] Telephoneon 04-02-2023 Telephone [id number] Wayne Oneal A 1950 M Date Provider Department Center 04/02/2023 554-TRACI VAZQUEZ [facility] Family History Problem Relation Age of Onset Coronary artery disease Mother Family Status - Relation Status Age at Mother [facility] Consulton 03-26-2023 Consult [id number] Wayne Oneal A 1950 M Date Provider Department Center 03/26/2023 [id number]-RADU RENEE [facility] [place] Family History Problem Relation Age of Onset Coronary artery disease Mother Family Status - Relation Status Age at Mother Level of Service:46745 DE OFFICE/OUTPATIENT NEW MODERATE MDM 45-59 MINUTES Reason for Visit and Comments: Consult [484] - Pt is here for a CO visit for Osteophyte. [facility] MR LUMBAR SPINE W AND WO [...] previous results Electronically signed: Asher Tomlinson. [facility] Comment on above: Order Comment: Order in [facility] Covid-19 PCR (CVDTB)on SARS-CoV-2 (COVID-19) RNA VENESSA+probe Ql (Unsp spec) Not detected Normal NOT DETECTED [facility] Comment on above: Result Comment: When [...] for this test is supported by the Director Of Personnel of Health and Human Service's declaration that [...] Performed By: #### B MP, BNP #### [facility] [address] [place] [address] Dr. Leni Hamlin INFLUENZA A AND B AGon 01-16 INFLUANEGH SEE BELOW Normal [facility] Comment on above: Result Comment: Nega tive for Flu A protein angiten. Infection due to Flu A cannot be ruled out. Flu A angiten in the sample may be below the detection limit of the test. Performed By: #### C RP #### [facility] [address] [place] [address] Dr. Leni Hamlin INFLUBNEGH SEE BELOW Normal [facility] Comment on above: Result Comment: Nega tive for Flu B protein antigen. Infection due to Flu B cannot be ruled out. Flu B antigen in the sample may be below the detection limit of the test. Performed By: #### C RP #### [facility] [address] [place] [address] Dr. Leni Hamlin INFLUENZA A AG Negative Normal NEGATIVE SEE COMMENT [facility] Comment on above: Performed By: #### C RP #### [facility] [address] [place] [address] Dr. Leni Hamlin INFLUENZA B AG Negative Normal NEGATIVE SEE COMMENT [facility] Comment on above: Performed By: #### C #### [facility] [address] LSPINE WO CONon [...] CIERA HERNÁNDEZ Date: 2022-12-18 15:56 Normal [facility] CBC AUTO DIFFon 10-03-2022 BASO # 0.1 103/ul Normal 0.0-0.1 [facility] Comment on above: Performed By: #### B , BNP #### [facility] [address] [place] [address] Dr. Leni Hamlin Basophils/100 WBC (Bld) 0.5 % Normal 0.2-2.0 [facility] Comment on above: Performed By: #### B MP, BNP #### [facility] [address] [place] [address] Dr. Leni Hamlin EO # 0.3 103/ul Normal 0.0-0.7 [facility] Comment on above: Performed By: #### B MP, BNP #### [facility] [address] [place] [address] Dr. Leni Hamlin Eosinophils/100 WBC (Bld) 2.2 % Normal 0.9-7.0 [facility] Comment on above: Performed By: #### B MP, BNP #### [facility] [address] [place] [address] Dr. Leni Hamlin Erythrocyte distribution width (RBC) [Ratio] 13.3 % Normal 11.0-15.0 [facility] Comment on above: Performed By: #### B MP, BNP #### [facility] [address] [place] [address] Dr. Leni Hamlin Hematocrit (Bld) [Volume fraction] 46.9 % Normal 42.0-54.0 [facility] Comment on above: Performed By: #### B MP, BNP #### [facility] [address] [place] [address] Dr. Leni Hamlin Hemoglobin (Bld) [Mass/Vol] 15.3 g/dL Normal 14.0-18.0 [facility] Comment on above: Performed By: #### B MP, BNP #### [facility] [address] [place] [address] Dr. Leni Hamlin IG # 0.18 10e3/ul Critically high 0.00-0.03 [facility] Comment on above: Performed By: #### B MP, BNP #### [facility] [address] [place] [address] Dr. Leni Hamlin IG % 1.3 % Critically high 0.0-0.5 [facility] Comment on above: Performed By: #### B MP, BNP #### [facility] [address] [address] [address] Leni Hamlin LYMPH # 1.9 103/ul Normal 1.2-3.8 [facility] Comment on above: Performed By: #### B MP, BNP #### [facility] [address] [address] [address] Leni Hamlin Lymphocytes/100 WBC (Bld) 13.6 % Critically low 20.5-60.0 [facility] Comment on above: Performed By: #### B MP, BNP #### [facility] [address] [address] [address] Leni Hamlni MANUAL DIFF REQ NO Normal [facility] Comment on above: Performed By: #### B MP, BNP #### [facility] [address] [place] [address] Dr. Leni Hamlin MCH (RBC) [Entitic mass] 29.2 pg Normal 25.9-34.0 [facility] Comment on above: Performed By: #### B MP, BNP #### [facility] [address] [place] [address] Dr. Leni Hamlin MCHC (RBC) [Mass/Vol] 32.6 g/dL Normal 29.9-35.2 [facility] Comment on above: Performed By: #### B MP, BNP #### [facility] [address] [address] [address] Leni Hamlin MCV (RBC) [Entitic vol] 89.5 fL Normal 80.0-94.0 [facility] Comment on above: Performed By: #### B MP, BNP #### [facility] [address] [place] [address] Dr. Leni Hamlin MONO # 0.9 103/ul Critically high 0.3-0.8 [facility] Comment on above: Performed By: #### B MP, BNP #### [facility] [address] [place] [address] Dr. Leni Hamlin Monocytes/100 WBC (Bld) 6.6 % Normal 1.7-12.0 [facility] Comment on above: Performed By: #### B MP, BNP #### [facility] [address] [place] [address] Dr. Leni Hamlin NEUT # 10.4 103/ul Critically high 1.4-6.5 [facility] Comment on above: Performed By: #### B MP, BNP #### [facility] [address] [place] [address] Dr. Leni Hamlin Neutrophils/100 WBC (Bld) 75.8 % Critically high 43.0-75.0 [facility] Comment on above: Performed By: #### B MP, BNP #### [facility] [address] [place] [address] Dr. Leni Hamlin Platelet mean volume (Bld) [Entitic vol] 10.6 fL Normal 9.5-13.5 [facility] Comment on above: Performed By: #### B MP, BNP #### [facility] [address] [place] [address] Dr. Leni Hamlin PLT 143 103/ul Critically low 150-450 [facility] Comment on above: Performed By: #### B MP, BNP #### [facility] [address] [place] [address] Dr. Leni Hamlin RBC 5.24 106/ul Normal 4.70-6.10 [facility] Comment on above: Performed By: #### B MP, BNP #### [facility] [address] [place] [address] Dr. Leni Hamlin WBC 13.7 103/ul Critically high 4.0-11.0 [facility] Comment on above: Performed By: #### B MP, BNP #### [facility] [address] [place] [address] Dr. Leni Hamlin CRPon 10-03-2022 CRP 7.6 mg/dL Critically high <=1.0 [facility] Comment on above: Performed By: #### C MP, CRP #### [facility] [address] [place] [address] Dr. Leni Hamlin PROF 14(COMP METB)on 022 Albumin [Mass/Vol] 2.5 g/dL Critically low 3.4-5.0 [facility] Comment on above: Performed By: #### C MP, CRP #### [facility] [address] [address] [address] Leni Hamlin Albumin/Globulin [Mass ratio] 0.7 {ratio} Normal [facility] Comment on above: Performed By: #### C MP, CRP #### [facility] [address] [address] [address] Leni Hamlin ALP [Catalytic activity/Vol] 54 U/L Normal 46-116 [facility] Comment on above: Performed By: #### C MP, CRP #### [facility] [address] [address] [address] Leni Hamlin ALT [Catalytic activity/Vol] 11 U/L Critically low 16-63 [facility] Comment on above: Performed By: #### C MP, CRP #### [facility] [address] [address] [address] Leni Halmin Anion gap [Moles/Vol] 8.8 mmol/L Normal [facility] Comment on above: Performed By: #### C MP, CRP #### [facility] [address] [address] [address] Leni Hamlin AST [Catalytic activity/Vol] 9 U/L Critically low 15-37 [facility] Comment on above: Performed By: #### C MP, CRP #### [facility] [address] [address] [address] Leni Hamlin Bilirubin [Mass/Vol] 0.3 mg/dL Normal 0.2-1.0 [facility] Comment on above: Performed By: #### C MP, CRP #### [facility] [address] [address] [address] Leni Hamlin Calcium [Mass/Vol] 8.6 mg/dL Normal 8.5-10.1 [facility] Comment on above: Performed By: #### C MP, CRP #### [facility] [address] [address] [address] Leni Hamlin Chloride [Moles/Vol] 103 mmol/L Normal 98-107 [facility] Comment on above: Performed By: #### C MP, CRP #### [facility] [address] [address] [address] Leni Hamlin CO2 [Moles/Vol] 29.2 mmol/L Normal 21.0-32.0 [facility] Comment on above: Performed By: #### C MP, CRP #### [facility] [address] [place] [address] Dr. Leni Hamlin Creatinine [Mass/Vol] 1.20 mg/dL Normal 0.70-1.30 [facility] Comment on above: Performed By: #### C MP, CRP #### [facility] [address] [place] [address] Dr. Leni Hamlin EGFR-AF GAMBIAN >60 Normal >=60 [facility] Comment on above: Performed By: #### C MP, CRP #### [facility] [address] [place] [address] Dr. Leni Hamlin EGFR-NON AF GAMBIAN 59 mL/min/1.73m2 Critically low >=60 [facility] Comment on above: Performed By: #### C MP, CRP #### [facility] [address] [place] [address] Dr. Leni Hamlin Globulin (S) [Mass/Vol] 3.4 g/dL Normal [facility] Comment on above: Performed By: #### C MP, CRP #### [facility] [address] [place] [address] Dr. Leni Hamlin Glucose [Mass/Vol] 108 mg/dL Critically high 74-106 [facility] Comment on above: Performed By: #### C MP, CRP #### [facility] [address] [place] [address] Dr. Leni Hamlin Potassium [Moles/Vol] 4.0 mmol/L Normal 3.5-5.1 [facility] Comment on above: Performed By: #### C MP, CRP #### [facility] [address] [place] [address] Dr. Leni Hamlin Protein [Mass/Vol] 5.9 g/dL Critically low 6.4-8.2 [facility] Comment on above: Performed By: #### C MP, CRP #### [facility] [address] [place] [address] Dr. Leni Hamlin Sodium [Moles/Vol] 137 mmol/L Normal 136-145 [facility] Comment on above: Performed By: #### C MP, CRP #### [facility] [address] [place] [address] Dr. Leni Hamlin Urea nitrogen [Mass/Vol] 15.0 mg/dL Normal 7.0-18.0 [facility] Comment on above: Performed By: #### C MP, CRP #### [facility] [address] [place] [address] Dr. Leni Hamlin Urea nitrogen/Creatinine [Mass ratio] 12.5 mg/mg Normal [facility] Comment on above: Performed By: #### C MP, CRP #### [facility] [address] [place] [address] Dr. Leni Hamlin CBC AUTO DIFFon 10-02-2022 BASO # 0.1 103/ul Normal 0.0-0.1 [facility] Comment on above: Performed By: #### C MP, CRP #### [facility] [address] [place] [address] Dr. Leni Hamlin Basophils/100 WBC (Bld) 0.5 % Normal 0.2-2.0 [facility] Comment on above: Performed By: #### C MP, CRP #### [facility] [address] [place] [address] Dr. Leni Hamlin EO # 0.2 103/ul Normal 0.0-0.7 [facility] Comment on above: Performed By: #### C MP, CRP #### [facility] [address] [place] [address] Dr. Leni Hamlin Eosinophils/100 WBC (Bld) 1.6 % Normal 0.9-7.0 [facility] Comment on above: Performed By: #### C MP, CRP #### [facility] [address] [address] [address] Leni Hamlin Erythrocyte distribution width (RBC) [Ratio] 13.4 % Normal 11.0-15.0 [facility] Comment on above: Performed By: #### C MP, CRP #### [facility] [address] [place] [address] Dr. Leni Hamlin Hematocrit (Bld) [Volume fraction] 46.6 % Normal 42.0-54.0 [facility] Comment on above: Performed By: #### C MP, CRP #### [facility] [address] [place] [address] Dr. Leni Hamlin Hemoglobin (Bld) [Mass/Vol] 15.1 g/dL Normal 14.0-18.0 [facility] Comment on above: Performed By: #### C MP, CRP #### [facility] [address] [place] [address] Dr. Leni Hamlin IG # 0.21 10e3/ul Critically high 0.00-0.03 [facility] Comment on above: Performed By: #### C MP, CRP #### [facility] [address] [place] [address] Dr. Leni Hamlin IG % 1.4 % Critically high 0.0-0.5 [facility] Comment on above: Performed By: #### C MP, CRP #### [facility] [address] [place] [address] Dr. Leni Hamlin LYMPH # 1.9 103/ul Normal 1.2-3.8 [facility] Comment on above: Performed By: #### C MP, CRP #### [facility] [address] [place] [address] Dr. Leni Hamlin Lymphocytes/100 WBC (Bld) 12.4 % Critically low 20.5-60.0 [facility] Comment on above: Performed By: #### C MP, CRP #### [facility] [address] [place] [address] Dr. Leni Hamlin MANUAL DIFF REQ NO Normal [facility] Comment on above: Performed By: #### C MP, CRP #### [facility] [address] [address] [address] Leni Hamlin MCH (RBC) [Entitic mass] 28.9 pg Normal 25.9-34.0 [facility] Comment on above: Performed By: #### C MP, CRP #### [facility] [address] [place] [address] Dr. Leni Hamlin MCHC (RBC) [Mass/Vol] 32.4 g/dL Normal 29.9-35.2 [facility] Comment on above: Performed By: #### C MP, CRP #### [facility] [address] [place] [address] Dr. Leni Hamlin MCV (RBC) [Entitic vol] 89.3 fL Normal 80.0-94.0 [facility] Comment on above: Performed By: #### C MP, CRP #### [facility] [address] [place] [address] Dr. Leni Hamlin MONO # 1.1 103/ul Critically high 0.3-0.8 [facility] Comment on above: Performed By: #### C MP, CRP #### [facility] [address] [place] [address] Dr. Leni Hamlin Monocytes/100 WBC (Bld) 6.9 % Normal 1.7-12.0 [facility] Comment on above: Performed By: #### C MP, CRP #### [facility] [address] [place] [address] Dr. Leni Hamlin NEUT # 11.8 103/ul Critically high 1.4-6.5 [facility] Comment on above: Performed By: #### C MP, CRP #### [facility] [address] [place] [address] Dr. Leni Hamlin Neutrophils/100 WBC (Bld) 77.2 % Critically high 43.0-75.0 [facility] Comment on above: Performed By: #### C MP, CRP #### [facility] [address] [address] [address] Leni Hamlin Platelet mean volume (Bld) [Entitic vol] 10.5 fL Normal 9.5-13.5 [facility] Comment on above: Performed By: #### C MP, CRP #### [facility] [address] [place] [address] Dr. Leni Hamlin PLT 138 103/ul Critically low 150-450 [facility] Comment on above: Performed By: #### C MP, CRP #### [facility] [address] [address] [address] Leni Hamlin RBC 5.22 106/ul Normal 4.70-6.10 [facility] Comment on above: Performed By: #### C MP, CRP #### [facility] [address] [place] [address] Dr. Leni Hamlin WBC 15.3 103/ul Critically high 4.0-11.0 [facility] Comment on above: Performed By: #### C MP, CRP #### [facility] [address] [place] [address] Dr. Leni Hamlin CRPon 10-02-2022 CRP 13.7 mg/dL Critically high <=1.0 [facility] Comment on above: Performed By: #### C VDAGS #### [facility] [address] [place] [address] Dr. Leni Hamlin PROF 14(COMP METB)on 022 Albumin [Mass/Vol] 2.5 g/dL Critically low 3.4-5.0 [facility] Comment on above: Performed By: #### C VDAGS #### [facility] [address] [place] [address] Dr. Leni Hamlin Albumin/Globulin [Mass ratio] 0.8 {ratio} Normal [facility] Comment on above: Performed By: #### C VDAGS #### [facility] [address] [place] [address] Dr. Leni Hamlin ALP [Catalytic activity/Vol] 54 U/L Normal 46-116 [facility] Comment on above: Performed By: #### C VDAGS #### [facility] [address] [place] [address] Dr. Leni Hamlin ALT [Catalytic activity/Vol] 13 U/L Critically low 16-63 [facility] Comment on above: Performed By: #### C VDAGS #### [facility] [address] [place] [address] Dr. Leni Hamlin Anion gap [Moles/Vol] 10.6 mmol/L Normal [facility] Comment on above: Performed By: #### C VDAGS #### [facility] [address] [address] [address] Leni Hamlin AST [Catalytic activity/Vol] 9 U/L Critically low 15-37 [facility] Comment on above: Performed By: #### C VDAGS #### [facility] [address] [place] [address] Dr. Leni Hamlin Bilirubin [Mass/Vol] 0.3 mg/dL Normal 0.2-1.0 [facility] Comment on above: Performed By: #### C VDAGS #### [facility] [address] [place] [address] Dr. Leni Hamlin Calcium [Mass/Vol] 8.5 mg/dL Normal 8.5-10.1 [facility] Comment on above: Performed By: #### C VDAGS #### [facility] [address] [place] [address] Dr. Leni Hamlin Chloride [Moles/Vol] 104 mmol/L Normal 98-107 [facility] Comment on above: Performed By: #### C VDAGS #### [facility] [address] [place] [address] Dr. Leni Hamlin CO2 [Moles/Vol] 27.5 mmol/L Normal 21.0-32.0 [facility] Comment on above: Performed By: #### C VDAGS #### [facility] [address] [place] [address] Dr. Leni Hamlin Creatinine [Mass/Vol] 1.26 mg/dL Normal 0.70-1.30 [facility] Comment on above: Performed By: #### C VDAGS #### [facility] [address] [place] [address] Dr. Leni Hamlin EGFR-AF GAMBIAN >60 Normal >=60 [facility] Comment on above: Performed By: #### C VDAGS #### [facility] [address] [address] [address] Leni Hamlin EGFR-NON AF GAMBIAN 56 mL/min/1.73m2 Critically low >=60 [facility] Comment on above: Performed By: #### C VDAGS #### [facility] [address] [address] [address] Leni Hamlin Globulin (S) [Mass/Vol] 3.3 g/dL Normal [facility] Comment on above: Performed By: #### C VDAGS #### [facility] [address] [place] [address] Dr. Leni Hamlin Glucose [Mass/Vol] 122 mg/dL Critically high 74-106 [facility] Comment on above: Performed By: #### C VDAGS #### [facility] [address] [address] [address] Leni Hamlin Potassium [Moles/Vol] 4.1 mmol/L Normal 3.5-5.1 [facility] Comment on above: Performed By: #### C VDAGS #### [facility] [address] [place] [address] Dr. Leni Hamlin Protein [Mass/Vol] 5.8 g/dL Critically low 6.4-8.2 [facility] Comment on above: Performed By: #### C VDAGS #### [facility] [address] [address] [address] Leni Hamlin Sodium [Moles/Vol] 138 mmol/L Normal 136-145 [facility] Comment on above: Performed By: #### C VDAGS #### [facility] [address] [address] [address] Leni Hamlin Urea nitrogen [Mass/Vol] 20.0 mg/dL Critically high 7.0-18.0 [facility] Comment on above: Performed By: #### C VDAGS #### [facility] [address] [place] [address] Dr. Leni Hamlin Urea nitrogen/Creatinine [Mass ratio] 15.9 mg/mg Normal [facility] Comment on above: Performed By: #### C VDAGS #### [facility] [address] [place] [address] Dr. Leni Hamlin CBC AUTO DIFFon 10-01-2022 BASO # 0.1 103/ul Normal 0.0-0.1 [facility] Comment on above: Performed By: #### C MP, CRP #### [facility] [address] [place] [address] Dr. Leni Hamlin Basophils/100 WBC (Bld) 0.3 % Normal 0.2-2.0 [facility] Comment on above: Performed By: #### C MP, CRP #### [facility] [address] [place] [address] Dr. Leni Hamlin EO # 0.2 103/ul Normal 0.0-0.7 [facility] Comment on above: Performed By: #### C MP, CRP #### [facility] [address] [place] [address] Dr. Leni Hamlin Eosinophils/100 WBC (Bld) 0.8 % Critically low 0.9-7.0 [facility] Comment on above: Performed By: #### C MP, CRP #### [facility] [address] [place] [address] Dr. Leni Hamlin Erythrocyte distribution width (RBC) [Ratio] 13.6 % Normal 11.0-15.0 [facility] Comment on above: Performed By: #### C MP, CRP #### [facility] [address] [place] [address] Dr. Leni Hamlin Hematocrit (Bld) [Volume fraction] 49.0 % Normal 42.0-54.0 [facility] Comment on above: Performed By: #### C MP, CRP #### [facility] [address] [place] [address] Dr. Leni Hamlin Hemoglobin (Bld) [Mass/Vol] 16.0 g/dL Normal 14.0-18.0 [facility] Comment on above: Performed By: #### C MP, CRP #### [facility] [address] [address] [address] Leni Hamlin IG # 0.24 10e3/ul Critically high 0.00-0.03 [facility] Comment on above: Performed By: #### C MP, CRP #### [facility] [address] [address] [address] Leni Hamlin IG % 1.2 % Critically high 0.0-0.5 [facility] Comment on above: Performed By: #### C MP, CRP #### [facility] [address] [address] [address] Leni Hamlin LYMPH # 1.6 103/ul Normal 1.2-3.8 [facility] Comment on above: Performed By: #### C MP, CRP #### [facility] [address] [place] [address] Dr. Leni Hamlin Lymphocytes/100 WBC (Bld) 8.0 % Critically low 20.5-60.0 [facility] Comment on above: Performed By: #### C MP, CRP #### [facility] [address] [place] [address] Dr. Leni Hamlin MANUAL DIFF REQ NO Normal [facility] Comment on above: Performed By: #### C MP, CRP #### [facility] [address] [place] [address] Dr. Leni Hamlin MCH (RBC) [Entitic mass] 29.4 pg Normal 25.9-34.0 [facility] Comment on above: Performed By: #### C MP, CRP #### [facility] [address] [place] [address] Dr. Leni Hamlin MCHC (RBC) [Mass/Vol] 32.7 g/dL Normal 29.9-35.2 [facility] Comment on above: Performed By: #### C MP, CRP #### [facility] [address] [place] [address] Dr. Leni Hamlin MCV (RBC) [Entitic vol] 90.1 fL Normal 80.0-94.0 [facility] Comment on above: Performed By: #### C MP, CRP #### [facility] [address] [address] [address] Leni Hamlin MONO # 1.0 103/ul Critically high 0.3-0.8 [facility] Comment on above: Performed By: #### C MP, CRP #### [facility] [address] [address] [address] Leni Hamlin Monocytes/100 WBC (Bld) 5.1 % Normal 1.7-12.0 [facility] Comment on above: Performed By: #### C MP, CRP #### [facility] [address] [address] [address] Leni Hamlin NEUT # 16.8 103/ul Critically high 1.4-6.5 [facility] Comment on above: Performed By: #### C MP, CRP #### [facility] [address] [place] [address] Dr. Leni Hamlin Neutrophils/100 WBC (Bld) 84.6 % Critically high 43.0-75.0 [facility] Comment on above: Performed By: #### C MP, CRP #### [facility] [address] [address] [address] Leni Hamlin Platelet mean volume (Bld) [Entitic vol] 9.7 fL Normal 9.5-13.5 [facility] Comment on above: Performed By: #### C MP, CRP #### [facility] [address] [address] [address] Leni Hamlin PLT 138 103/ul Critically low 150-450 [facility] Comment on above: Performed By: #### C MP, CRP #### [facility] [address] [address] [address] Leni Hamlin RBC 5.44 106/ul Normal 4.70-6.10 [facility] Comment on above: Performed By: #### C MP, CRP #### [facility] [address] [place] [address] Dr. Leni Hamlin WBC 19.8 103/ul Critically high 4.0-11.0 [facility] Comment on above: Performed By: #### C MP, CRP #### [facility] [address] [address] [address] Leni LEUNG # 0.1 103/ul Normal 0.0-0.1 [facility] Comment on above: Performed By: #### B MP, BNP #### [facility] [address] [address] [address] Leni Hamlin Basophils/100 WBC (Bld) 0.3 % Normal 0.2-2.0 [facility] Comment on above: Performed By: #### B MP, BNP #### [facility] [address] [place] [address] Dr. Leni Hamlin EO # 0.1 103/ul Normal 0.0-0.7 [facility] Comment on above: Performed By: #### B MP, BNP #### [facility] [address] [place] [address] Dr. Leni Hamlin Eosinophils/100 WBC (Bld) 0.7 % Critically low 0.9-7.0 [facility] Comment on above: Performed By: #### B MP, BNP #### [facility] [address] [place] [address] Dr. Leni Hamlin Erythrocyte distribution width (RBC) [Ratio] 13.6 % Normal 11.0-15.0 [facility] Comment on above: Performed By: #### B MP, BNP #### [facility] [address] [place] [address] Dr. Leni Hamlin Hematocrit (Bld) [Volume fraction] 46.9 % Normal 42.0-54.0 [facility] Comment on above: Performed By: #### B MP, BNP #### [facility] [address] [place] [address] Dr. Leni Hamlin Hemoglobin (Bld) [Mass/Vol] 15.5 g/dL Normal 14.0-18.0 [facility] Comment on above: Performed By: #### B MP, BNP #### [facility] [address] [place] [address] Dr. Leni Hamlin IG # 0.16 10e3/ul Critically high 0.00-0.03 [facility] Comment on above: Performed By: #### B MP, BNP #### [facility] [address] [place] [address] Dr. Leni Hamlin IG % 0.9 % Critically high 0.0-0.5 [facility] Comment on above: Performed By: #### B MP, BNP #### [facility] [address] [place] [address] Dr. Leni Hamlin LYMPH # 1.8 103/ul Normal 1.2-3.8 [facility] Comment on above: Performed By: #### B MP, BNP #### [facility] [address] [place] [address] Dr. Leni Hamlin Lymphocytes/100 WBC (Bld) 9.7 % Critically low 20.5-60.0 [facility] Comment on above: Performed By: #### B MP, BNP #### [facility] [address] [place] [address] Dr. Leni Hamlin MANUAL DIFF REQ NO Normal [facility] Comment on above: Performed By: #### B MP, BNP #### [facility] [address] [place] [address] Dr. Leni Hamlin MCH (RBC) [Entitic mass] 29.2 pg Normal 25.9-34.0 [facility] Comment on above: Performed By: #### B MP, BNP #### [facility] [address] [place] [address] Dr. Leni Hamlin MCHC (RBC) [Mass/Vol] 33.0 g/dL Normal 29.9-35.2 [facility] Comment on above: Performed By: #### B MP, BNP #### [facility] [address] [place] [address] Dr. Leni Hamlin MCV (RBC) [Entitic vol] 88.3 fL Normal 80.0-94.0 [facility] Comment on above: Performed By: #### B MP, BNP #### [facility] [address] [place] [address] Dr. Leni Hamlin MONO # 1.4 103/ul Critically high 0.3-0.8 [facility] Comment on above: Performed By: #### B MP, BNP #### [facility] [address] [place] [address] Dr. Leni Hamlin Monocytes/100 WBC (Bld) 7.3 % Normal 1.7-12.0 [facility] Comment on above: Performed By: #### B MP, BNP #### [facility] [address] [place] [address] Dr. Leni Hamlin NEUT # 15.1 103/ul Critically high 1.4-6.5 [facility] Comment on above: Performed By: #### B MP, BNP #### [facility] [address] [place] [address] Dr. Leni Hamlin Neutrophils/100 WBC (Bld) 81.1 % Critically high 43.0-75.0 [facility] Comment on above: Performed By: #### B MP, BNP #### [facility] [address] [place] [address] Dr. Leni Hamlin Platelet mean volume (Bld) [Entitic vol] 10.0 fL Normal 9.5-13.5 [facility] Comment on above: Performed By: #### B MP, BNP #### [facility] [address] [place] [address] Dr. Leni Hamlin PLT 141 103/ul Critically low 150-450 [facility] Comment on above: Performed By: #### B MP, BNP #### [facility] [address] [place] [address] Dr. Leni Hamlin RBC 5.31 106/ul Normal 4.70-6.10 [facility] Comment on above: Performed By: #### B MP, BNP #### [facility] [address] [place] [address] Dr. Leni Hamlin WBC 18.7 103/ul Critically high 4.0-11.0 [facility] Comment on above: Performed By: #### B MP, BNP #### [facility] [address] [place] [address] Dr. Leni Hamlin CRPon 10-01-2022 CRP 16.0 mg/dL Critically high <=1.0 [facility] Comment on above: Performed By: #### C VDAGS #### [facility] [address] [address] [address] Leni Hamlin PROF 14(COMP METB)on 022 Albumin [Mass/Vol] 2.6 g/dL Critically low 3.4-5.0 [facility] Comment on above: Performed By: #### C MP, CRP #### [facility] [address] [address] [address] Leni Hamlin Albumin/Globulin [Mass ratio] 0.8 {ratio} Normal [facility] Comment on above: Performed By: #### C MP, CRP #### [facility] [address] [place] [address] Dr. Leni Hamlin ALP [Catalytic activity/Vol] 44 U/L Critically low 46-116 [facility] Comment on above: Performed By: #### C MP, CRP #### [facility] [address] [place] [address] Dr. Leni Hamlin ALT [Catalytic activity/Vol] 12 U/L Critically low 16-63 [facility] Comment on above: Performed By: #### C MP, CRP #### [facility] [address] [address] [address] Leni Hamlin Anion gap [Moles/Vol] 8.7 mmol/L Normal [facility] Comment on above: Performed By: #### C MP, CRP #### [facility] [address] [address] [address] Leni Hamlin AST [Catalytic activity/Vol] 10 U/L Critically low 15-37 [facility] Comment on above: Performed By: #### C MP, CRP #### [facility] [address] [address] [address] Leni Hamlin Bilirubin [Mass/Vol] 0.8 mg/dL Normal 0.2-1.0 [facility] Comment on above: Performed By: #### C MP, CRP #### [facility] [address] [address] [address] Leni Hamlin Calcium [Mass/Vol] 8.3 mg/dL Critically low 8.5-10.1 [facility] Comment on above: Performed By: #### C MP, CRP #### [facility] [address] [address] [address] Leni Hamlin Chloride [Moles/Vol] 103 mmol/L Normal 98-107 [facility] Comment on above: Performed By: #### C MP, CRP #### [facility] [address] [address] [address] Leni Hamlin CO2 [Moles/Vol] 28.2 mmol/L Normal 21.0-32.0 [facility] Comment on above: Performed By: #### C MP, CRP #### [facility] [address] [place] [address] Dr. Leni Hamlin Creatinine [Mass/Vol] 1.24 mg/dL Normal 0.70-1.30 [facility] Comment on above: Performed By: #### C MP, CRP #### [facility] [address] [place] [address] Dr. Leni Hamlin EGFR-AF GAMBIAN >60 Normal >=60 [facility] Comment on above: Performed By: #### C MP, CRP #### [facility] [address] [place] [address] Dr. Leni Hamlin EGFR-NON AF GAMBIAN 57 mL/min/1.73m2 Critically low >=60 [facility] Comment on above: Performed By: #### C MP, CRP #### [facility] [address] [place] [address] Dr. Leni Hamlin Globulin (S) [Mass/Vol] 3.2 g/dL Normal [facility] Comment on above: Performed By: #### C MP, CRP #### [facility] [address] [place] [address] Dr. Leni Hamlin Glucose [Mass/Vol] 111 mg/dL Critically high 74-106 [facility] Comment on above: Performed By: #### C MP, CRP #### [facility] [address] [address] [address] Lnei Hamlin Potassium [Moles/Vol] 3.9 mmol/L Normal 3.5-5.1 [facility] Comment on above: Performed By: #### C MP, CRP #### [facility] [address] [place] [address] Dr. Leni Hamlin Protein [Mass/Vol] 5.8 g/dL Critically low 6.4-8.2 [facility] Comment on above: Performed By: #### C MP, CRP #### [facility] [address] [place] [address] Dr. Leni Hamlin Sodium [Moles/Vol] 136 mmol/L Normal 136-145 [facility] Comment on above: Performed By: #### C MP, CRP #### [facility] [address] [place] [address] Dr. Leni Hamlin Urea nitrogen [Mass/Vol] 17.0 mg/dL Normal 7.0-18.0 [facility] Comment on above: Performed By: #### C MP, CRP #### [facility] [address] [place] [address] Dr. Leni Hamlin Urea nitrogen/Creatinine [Mass ratio] 13.7 mg/mg Normal [facility] Comment on above: Performed By: #### C MP, CRP #### [facility] [address] [place] [address] Dr. Leni Hamlin C. DIFF PCRon 09-30-2022 C. DIFFICILE PCR Positive Critically abnormal NEGATIVE [facility] Comment on above: Performed By: #### C VDAGS #### [facility] [address] [place] [address] Dr. Leni Hamlin CBC AUTO DIFFon 09-30-2022 BASO # 0.0 103/ul Normal 0.0-0.1 [facility] Comment on above: Performed By: #### C BC #### [facility] [address] [place] [address] Dr. Leni Hamlin Basophils/100 WBC (Bld) 0.3 % Normal 0.2-2.0 [facility] Comment on above: Performed By: #### C BC #### [facility] [address] [place] [address] Dr. Leni Hamlin EO # 0.1 103/ul Normal 0.0-0.7 [facility] Comment on above: Performed By: #### C BC #### [facility] [address] [place] [address] Dr. Leni Hamlin Eosinophils/100 WBC (Bld) 0.8 % Critically low 0.9-7.0 [facility] Comment on above: Performed By: #### C BC #### [facility] [address] [place] [address] Dr. Leni Hmalin Erythrocyte distribution width (RBC) [Ratio] 13.4 % Normal 11.0-15.0 [facility] Comment on above: Performed By: #### C BC #### [facility] [address] [place] [address] Dr. Leni Hamlin Hematocrit (Bld) [Volume fraction] 50.4 % Normal 42.0-54.0 [facility] Comment on above: Performed By: #### C BC #### [facility] [address] [place] [address] Dr. Leni Hamlin Hemoglobin (Bld) [Mass/Vol] 16.2 g/dL Normal 14.0-18.0 [facility] Comment on above: Performed By: #### C BC #### [facility] [address] [place] [address] Dr. Leni Hamlin IG # 0.13 10e3/ul Critically high 0.00-0.03 [facility] Comment on above: Performed By: #### C BC #### [facility] [address] [place] [address] Dr. Leni Hamlin IG % 0.9 % Critically high 0.0-0.5 [facility] Comment on above: Performed By: #### C BC #### [facility] [address] [place] [address] Dr. Leni Hamlin LYMPH # 1.7 103/ul Normal 1.2-3.8 [facility] Comment on above: Performed By: #### C BC #### [facility] [address] [address] [address] Leni Hamlin Lymphocytes/100 WBC (Bld) 11.1 % Critically low 20.5-60.0 [facility] Comment on above: Performed By: #### C BC #### [facility] [address] [place] [address] Dr. Leni Hamlin MANUAL DIFF REQ NO Normal [facility] Comment on above: Performed By: #### C BC #### [facility] [address] [place] [address] Dr. Leni Hamlin MCH (RBC) [Entitic mass] 28.8 pg Normal 25.9-34.0 [facility] Comment on above: Performed By: #### C BC #### [facility] [address] [place] [address] Dr. Leni Hamlin MCHC (RBC) [Mass/Vol] 32.1 g/dL Normal 29.9-35.2 [facility] Comment on above: Performed By: #### C BC #### [facility] [address] [place] [address] Dr. Leni Hamlin MCV (RBC) [Entitic vol] 89.7 fL Normal 80.0-94.0 [facility] Comment on above: Performed By: #### C BC #### [facility] [address] [place] [address] Dr. Leni Hamlin MONO # 1.5 103/ul Critically high 0.3-0.8 [facility] Comment on above: Performed By: #### C BC #### [facility] [address] [place] [address] Dr. Leni Hamlin Monocytes/100 WBC (Bld) 9.8 % Normal 1.7-12.0 [facility] Comment on above: Performed By: #### C BC #### [facility] [address] [place] [address] Dr. Leni Hamlin NEUT # 11.7 103/ul Critically high 1.4-6.5 [facility] Comment on above: Performed By: #### C BC #### [facility] [address] [address] [address] eLni Hamlin Neutrophils/100 WBC (Bld) 77.1 % Critically high 43.0-75.0 [facility] Comment on above: Performed By: #### C BC #### [facility] [address] [address] [address] Leni Hamlin Platelet mean volume (Bld) [Entitic vol] 9.9 fL Normal 9.5-13.5 [facility] Comment on above: Performed By: #### C BC #### [facility] [address] [address] [address] Leni Hamlin PLT 156 103/ul Normal 150-450 [facility] Comment on above: Performed By: #### C BC #### [facility] [address] [place] [address] Dr. Leni Hamlin RBC 5.62 106/ul Normal 4.70-6.10 [facility] Comment on above: Performed By: #### C BC #### [facility] [address] [address] [address] Leni Hamlin WBC 15.2 103/ul Critically high 4.0-11.0 [facility] Comment on above: Performed By: #### C BC #### [facility] [address] [address] [address] Leni Hamlin CRPon 09-30-2022 CRP 7.6 mg/dL Critically high <=1.0 [facility] Comment on above: Performed By: #### C RP #### [facility] [address] [address] [address] Leni Hamlin PROF 14(COMP METB)on 022 Albumin [Mass/Vol] 2.8 g/dL Critically low 3.4-5.0 [facility] Comment on above: Performed By: #### C RP #### [facility] [address] [place], [place] [id number] Dr. Leni Hamlin Albumin/Globulin [Mass ratio] 0.9 {ratio} Normal [facility] Comment on above: Performed By: #### C RP #### [facility] [address] [place] [address] Dr. Leni Hamlin ALP [Catalytic activity/Vol] 45 U/L Critically low 46-116 [facility] Comment on above: Performed By: #### C RP #### [facility] [address] [address] [address] Leni Hamlin ALT [Catalytic activity/Vol] 17 U/L Normal 16-63 [facility] Comment on above: Performed By: #### C RP #### [facility] [address] [place] [address] Dr. Leni Hamlin Anion gap [Moles/Vol] 8.4 mmol/L Normal [facility] Comment on above: Performed By: #### C RP #### [facility] [address] [place] [address] Dr. Leni Hamlin AST [Catalytic activity/Vol] 9 U/L Critically low 15-37 [facility] Comment on above: Performed By: #### C RP #### [facility] [address] [place] [address] Dr. Leni Hamlin Bilirubin [Mass/Vol] 0.6 mg/dL Normal 0.2-1.0 [facility] Comment on above: Performed By: #### C RP #### [facility] [address] [place] [address] Dr. Leni Hamlin Calcium [Mass/Vol] 8.6 mg/dL Normal 8.5-10.1 [facility] Comment on above: Performed By: #### C RP #### [facility] [address] [place] [address] Dr. Leni Hamlin Chloride [Moles/Vol] 104 mmol/L Normal 98-107 [facility] Comment on above: Performed By: #### C RP #### [facility] [address] [place] [address] Dr. Leni Hamlin CO2 [Moles/Vol] 29.6 mmol/L Normal 21.0-32.0 [facility] Comment on above: Performed By: #### C RP #### [facility] [address] [place] [address] Dr. Leni Hamlin Creatinine [Mass/Vol] 1.23 mg/dL Normal 0.70-1.30 [facility] Comment on above: Performed By: #### C RP #### [facility] [address] [place] [address] Dr. Leni Hamlin EGFR-AF GAMBIAN >60 Normal >=60 [facility] Comment on above: Performed By: #### C RP #### [facility] [address] [place] [address] Dr. Leni Hamlin EGFR-NON AF GAMBIAN 58 mL/min/1.73m2 Critically low >=60 [facility] Comment on above: Performed By: #### C RP #### [facility] [address] [place] [address] Dr. Leni Hamlin Globulin (S) [Mass/Vol] 3.0 g/dL Normal [facility] Comment on above: Performed By: #### C RP #### [facility] [address] [place] [address] Dr. Leni Hamlin Glucose [Mass/Vol] 113 mg/dL Critically high 74-106 [facility] Comment on above: Performed By: #### C RP #### [facility] [address] [place] [address] Dr. Leni Hamlin Potassium [Moles/Vol] 4.0 mmol/L Normal 3.5-5.1 [facility] Comment on above: Performed By: #### C RP #### [facility] [address] [place] [address] Dr. Leni Hamlin Protein [Mass/Vol] 5.8 g/dL Critically low 6.4-8.2 [facility] Comment on above: Performed By: #### C RP #### [facility] [address] [place] [address] Dr. Leni Hamlin Sodium [Moles/Vol] 138 mmol/L Normal 136-145 [facility] Comment on above: Performed By: #### C RP #### [facility] [address] [place] [address] Dr. Leni Hamlin Urea nitrogen [Mass/Vol] 17.0 mg/dL Normal 7.0-18.0 [facility] Comment on above: Performed By: #### C RP #### [facility] [address] [place] [address] Dr. Leni Hamlin Urea nitrogen/Creatinine [Mass ratio] 13.8 mg/mg Normal [facility] Comment on above: Performed By: #### C RP #### [facility] [address] [place] [address] Dr. Leni Hamlin CBC AUTO DIFFon 09-29-2022 BASO # 0.1 103/ul Normal 0.0-0.1 [facility] Comment on above: Performed By: #### C VDAGS #### [facility] [address] [place] [address] Dr. Leni Hamlin Basophils/100 WBC (Bld) 0.4 % Normal 0.2-2.0 [facility] Comment on above: Performed By: #### C VDAGS #### [facility] [address] [place] [address] Dr. Leni Hamlin EO # 0.1 103/ul Normal 0.0-0.7 [facility] Comment on above: Performed By: #### C VDAGS #### [facility] [address] [place] [address] Dr. Leni Hamlin Eosinophils/100 WBC (Bld) 0.9 % Normal 0.9-7.0 [facility] Comment on above: Performed By: #### C VDAGS #### [facility] [address] [place] [address] Dr. Leni Hamlin Erythrocyte distribution width (RBC) [Ratio] 13.2 % Normal 11.0-15.0 [facility] Comment on above: Performed By: #### C VDAGS #### [facility] [address] [place] [address] Dr. Leni Hamlin Hematocrit (Bld) [Volume fraction] 53.1 % Normal 42.0-54.0 [facility] Comment on above: Performed By: #### C VDAGS #### [facility] [facility] [address] [place] [address] Dr. Leni Hamlin Hemoglobin (Bld) [Mass/Vol] 17.3 g/dL Normal 14.0-18.0 [facility] Comment on above: Performed By: #### C VDAGS #### [facility] [address] [place] [address] Dr. Leni Hamlin IG # 0.30 10e3/ul Critically high 0.00-0.03 [facility] Comment on above: Performed By: #### C VDAGS #### [facility] [address] [place] [address] Dr. Leni Hamlin IG % 2.2 % Critically high 0.0-0.5 [facility] Comment on above: Performed By: #### C VDAGS #### [facility] [address] [place] [address] Dr. Leni Hamlin LYMPH # 1.5 103/ul Normal 1.2-3.8 [facility] Comment on above: Performed By: #### C VDAGS #### [facility] [address] [place] [address] Dr. Leni Hamlin Lymphocytes/100 WBC (Bld) 10.5 % Critically low 20.5-60.0 [facility] Comment on above: Performed By: #### C VDAGS #### [facility] [address] [place] [address] Dr. Leni Hamlin MANUAL DIFF REQ NO Normal [facility] Comment on above: Performed By: #### C VDAGS #### [facility] [address] [place] [address] Dr. Leni Hamlin MCH (RBC) [Entitic mass] 29.0 pg Normal 25.9-34.0 [facility] Comment on above: Performed By: #### C VDAGS #### [facility] [address] [place] [address] Dr. Leni Hamlin MCHC (RBC) [Mass/Vol] 32.6 g/dL Normal 29.9-35.2 [facility] Comment on above: Performed By: #### C VDAGS #### [facility] [address] [address] [address] Leni Hamlin MCV (RBC) [Entitic vol] 88.9 fL Normal 80.0-94.0 [facility] Comment on above: Performed By: #### C VDAGS #### [facility] [address] [place] [address] Dr. Leni Hamlin MONO # 0.8 103/ul Normal 0.3-0.8 [facility] Comment on above: Performed By: #### C VDAGS #### [facility] [address] [place] [address] Dr. Leni Hamlin Monocytes/100 WBC (Bld) 6.0 % Normal 1.7-12.0 [facility] Comment on above: Performed By: #### C VDAGS #### [facility] [address] [place] [address] Dr. Leni Hamlin NEUT # 11.2 103/ul Critically high 1.4-6.5 The [facility] Comment on above: Performed By: #### C VDAGS #### [facility] [address] [place] [address] Dr. Leni Hamlin Neutrophils/100 WBC (Bld) 80.0 % Critically high 43.0-75.0 [facility] Comment on above: Performed By: #### C VDAGS #### [facility] [address] [place] [address] Dr. Leni Hamlin Platelet mean volume (Bld) [Entitic vol] 9.6 fL Normal 9.5-13.5 [facility] Comment on above: Performed By: #### C VDAGS #### [facility] [address] [place] [address] Dr. Leni Hamlin PLT 186 103/ul Normal 150-450 [facility] Comment on above: Performed By: #### C VDAGS #### [facility] [address] [place] [address] Dr. Leni Hamlin RBC 5.97 106/ul Normal 4.70-6.10 [facility] Comment on above: Performed By: #### C VDAGS #### [facility] [address] [place], [place] [address] Dr. Leni Hamlin WBC 13.9 103/ul Critically high 4.0-11.0 [facility] Comment on above: Performed By: #### C VDAGS #### [facility] [address] [place], [place] [address] ABD/PELV W CONon [...] RAJESH CHACON Date: 2022-09-29 12:51 Normal [facility]11 SARS-CoV-2 (COVID-19) RNA VENESSA+probe Ql (Unsp spec) Not detected Normal NOT DETECTED [facility] Comment on above: Result Comment: When [...] for this test is supported by the Director Of Personnel of Health and Human Service's declaration that [...] Performed By: #### B MP, BNP #### [facility] [address] [place] [address] Dr. Leni Hamlin GI PANEL (PCR)on 09-29-2022 Adenovirus F 40/41 Not detected Normal NOT DETECTED [facility] Comment on above: Performed By: #### C RP #### [facility] [address] [place] [address] Dr. Leni Hamlin Astrovirus Not detected Normal NOT DETECTED [facility] Comment on above: Performed By: #### C RP #### [facility] [address] [place] [address] Dr. Leni Hamlin C. Diff toxin A/B Not detected Normal NOT DETECTED [facility] Comment on above: Performed By: #### C RP #### [facility] [address] [place] [address] Dr. Leni Hamlin Campylobacter Not detected Normal NOT DETECTED [facility] Comment on above: Performed By: #### C RP #### [facility] [address] [place] [address] Dr. Leni Hamlin Cryptosporidium Not detected Normal NOT DETECTED [facility] Comment on above: Performed By: #### C RP #### [facility] [address] [place] [address] Dr. Leni Hamlin Cyclos. Cayetanensis Not detected Normal NOT DETECTED [facility] Comment on above: Performed By: #### C RP #### [facility] [address] [place] [address] Dr. Leni Hamlin E. Coli O157 Not Applicable Normal Not Applicable [facility] Comment on above: Performed By: #### C RP #### [facility] [address] [place] [address] Dr. Leni Hamlin E. histolytica Not detected Normal NOT DETECTED [facility] Comment on above: Performed By: #### C RP #### [facility] [address] [place] [address] Dr. Leni Hamlin EAEC Not detected Normal NOT DETECTED [facility] Comment on above: Performed By: #### C RP #### [facility] [address] [address] [address] Leni Hamlin EIEC Not detected Normal NOT DETECTED [facility] Comment on above: Performed By: #### C RP #### [facility] [address] [place] [address] Dr. Leni Hamlin EPEC Not detected Normal NOT DETECTED [facility] Comment on above: Performed By: #### C RP #### [facility] [address] [place] [address] Dr. Leni Hamlin ETEC Not detected Normal NOT DETECTED [facility] Comment on above: Performed By: #### C RP #### [facility] [address] [place] [address] Dr. Leni Finley Lamblia Not detected Normal NOT DETECTED [facility] Comment on above: Performed By: #### C RP #### [facility] [address] [place] [address] Dr. Leni TEJEDA CONTROLS PASSED Normal [facility] Comment on above: Performed By: #### C RP #### [facility] [address] [place] [address] Dr. Leni FRIEND [facility] HEADER GI PANEL BACTERIA Normal [facility] Comment on above: Performed By: #### C RP #### [facility] [address] [place] [address] Dr. Leni KAMARA ECOLI GI PANEL DIARRHEAGENIC E.COLI / SHIGELLA Normal [facility] Comment on above: Performed By: #### C RP #### [facility] [address] [place] [address] Dr. Leni KAMARA INFO SEE BELOW Normal [facility] Comment on above: Result Comment: EAEC - Enteroaggregative E. Coli EPEC- Enteropathogenic E. Coli ETEC- Enterotoxigenic E. Coli lt/st STEC- Shigella-like toxin-producing E. Coli stx1/stx2 EIEC- Shigella/Enteroinvasive E. Coli Performed By: #### C RP #### [facility] [address] [place] [address] Dr. Leni KAMARA PARASITES GI PANEL PARASITES Normal [facility] Comment on above: Performed By: #### C RP #### [facility] [address] [place] [address] Dr. Leni KAMARA VIRUS GI PANEL VIRUSES Normal [facility] Comment on above: Performed By: #### C RP #### [facility] [address] [place] [address] Dr. Leni Hamlin Norovirus GI/GII Not detected Normal NOT DETECTED [facility] Comment on above: Performed By: #### C RP #### [facility] [address] [place] [address] Dr. Leni Hamlin P. Shigelloides Not detected Normal NOT DETECTED [facility] Comment on above: Performed By: #### C RP #### [facility] [address] [place] [address] Dr. Leni Hamlin Rotavirus A Not detected Normal NOT DETECTED [facility] Comment on above: Performed By: #### C RP #### [facility] [address] [place] [address] Dr. Leni Hamlin Salmonella Not detected Normal NOT DETECTED [facility] Comment on above: Performed By: #### C RP #### [facility] [address] [place] [address] Dr. Leni Hamlin Sapovirus Not detected Normal NOT DETECTED [facility] Comment on above: Performed By: #### C RP #### [facility] [address] [place] [address] Dr. Leni Hamlin STEC Not detected Normal NOT DETECTED [facility] Comment on above: Performed By: #### C RP #### [facility] [address] [place] [address] Dr. Leni Hamlin Vibrio Not detected Normal NOT DETECTED [facility] Comment on above: Performed By: #### C RP #### [facility] [address] [place] [address] Dr. Leni Hamlin Vibrio Cholera Not detected Normal NOT DETECTED [facility] Comment on above: Performed By: #### C RP #### [facility] [address] [place] [address] Dr. Leni Hamlin Y. Enterocolitica Not detected Normal NOT DETECTED [facility] Comment on above: Performed By: #### C RP #### [facility] [address] [place] [address] Dr. Leni Hamlin PROF CHEM 8 (BAS METB)on Anion gap [Moles/Vol] 5.8 mmol/L Normal [facility] Comment on above: Performed By: #### C VDAGS #### [facility] [address] [place] [address] Dr. Leni Hamlin Calcium [Mass/Vol] 9.0 mg/dL Normal 8.5-10.1 [facility] Comment on above: Performed By: #### C VDAGS #### [facility] [address] [place] [address] Dr. Leni Hamlin Chloride [Moles/Vol] 103 mmol/L Normal 98-107 [facility] Comment on above: Performed By: #### C VDAGS #### [facility] [address] [place] [address] Dr. Leni Hamlin CO2 [Moles/Vol] 31.7 mmol/L Normal 21.0-32.0 [facility] Comment on above: Performed By: #### C VDAGS #### [facility] [address] [place] [address] Dr. Leni Hamlin Creatinine [Mass/Vol] 1.28 mg/dL Normal 0.70-1.30 [facility] Comment on above: Performed By: #### C VDAGS #### [facility] [address] [place] [address] Dr. Leni Hamlin EGFR-AF GAMBIAN >60 Normal >=60 [facility] Comment on above: Performed By: #### C VDAGS #### [facility] [address] [address] [address] Leni Hamlin EGFR-NON AF GAMBIAN 55 mL/min/1.73m2 Critically low >=60 [facility] Comment on above: Performed By: #### C VDAGS #### [facility] [address] [address] [address] Leni Hamlin Glucose [Mass/Vol] 130 mg/dL Critically high 74-106 [facility] Comment on above: Performed By: #### C VDAGS #### [facility] [address] [place] [address] Dr. Leni Hamlin Potassium [Moles/Vol] 4.5 mmol/L Normal 3.5-5.1 [facility] Comment on above: Performed By: #### C VDAGS #### [facility] [address] [place] [address] Dr. Leni Hamlin Sodium [Moles/Vol] 136 mmol/L Normal 136-145 [facility] Comment on above: Performed By: #### C VDAGS #### [facility] [address] [address] [address] Leni Hamlni Urea nitrogen [Mass/Vol] 23.0 mg/dL Critically high 7.0-18.0 [facility] Comment on above: Performed By: #### C VDAGS #### [facility] [address] [place] [address] Dr. Leni Hamlin Urea nitrogen/Creatinine [Mass ratio] 18.0 mg/mg Normal [facility] Comment on above: Performed By: #### C VDAGS #### [facility] [address] [place] [address] Dr. Leni Hamlin Cov[facility]-19 PCR [facility]on 08-13 SARS-CoV-2 (COVID-19) RNA VENESSA+probe Ql (Unsp spec) Not detected Normal NOT DETECTED [facility] Comment on above: Result Comment: When [...] for this test is supported by the [place] of Health and Human Service's declaration that [...] Performed By: #### C MP, CRP #### [facility] [address] [place] [address] Dr. Leni Hamlin Covid-19 PCR ([facility])on 05-11 SARS-CoV-2 (COVID-19) RNA VENESSA+probe Ql (Unsp spec) Detected Critically abnormal NOT DETECTED [facility] Comment on above: Result Comment: This test is not yet approved or cleared by the [place] FDA. When there are no FDA-approved or cleared tests available, and other criteria are met, FDA can make tests available under an emergency access mechanism called an Emergency Use Authorization (EUA). The EUA for this test is supported by the [place] of Health and Human Service's (HHS's) declaration [...] used). Performed By: #### C RP #### [facility] [address] [place] [address] Dr. Leni Hamlin Covid-19 PCR ([facility])on 04-11 SARS-CoV-2 (COVID-19) RNA VENESSA+probe Ql (Unsp spec) Not detected Normal NOT DETECTED [facility] Comment on above: Result Comment: This test is not yet approved or cleared by the [place] FDA. When there are no FDA-approved or cleared tests available, and other criteria are met, FDA can make tests available under an emergency access mechanism called an Emergency Use Authorization (EUA). The EUA for this test is supported by the Director Of Personnel of Health and Human Service's (HHS's) declaration [...] SARS-CoV-2. Performed By: #### C VDTB #### [facility] [address] [place] [address] Dr. Leni Hamlin SYMPTOMATIC COVID-19 ANTIGEN on 04-23-2022 EUA Statement SEE BELOW Normal [facility] Comment on above: Result Comment: This [...] sooner. Performed By: #### C VDAGS #### [facility] [address] [place] [address] Dr. Leni Hamlin SARS-CoV-2 (COVID-19) RNA VENESSA+probe Ql (Unsp spec) Negative Normal NEGATIVE [facility] Comment on above: Performed By: #### C VDAGS #### [facility] [address] [place], [place] [address] Dr. Leni Hamlin Cardiovascular Lab Reporton 03-22-2022 Cardiovascular Lab Report [facility] Patient Name: Brian Oneal MR #: [id number] Department of Physician: Modesto Becerra MD Medicine Service Date: 03/22/2022 Division of Birthdate: 1950 Cardiology Room #: [facility] [address] [place] [address] Cardiovascular Laboratory Report PACEMAKER IMPLANT PROCEDURE NOTE [...] using modified seldinger technique using a 5 Georgian micro-puncture needle on two occasions and 0.35 [...] pocket was created for the device. 6 Georgian Safesheaths were placed over the wire. An active fixation Biotronik pacing lead was then delivered through the 6Fsheath to the right ventricle. After confirmation of lead position on orthogonal views (RUBALCAVA and NICARAGUAN) to confirm septal position, the screw was [...] lead position on orthogonal views (RUBALCAVA and NICARAGUAN), the screw was activated. After confirmation of [...] Device info: Biotronik Edora Model# 8DR-T Serial# [id number] RA lead: Model# Biotronik Solia S45 Serial# [id number] Sensin.5mV Threshold: 0.6V@0.5ms Impedance: 507 Ohms RV lead: Model# Biotronik Solia S53 Serial# [id number] Sensin.5mV Threshold: 0.6V@0.4ms Impedance: 663 Ohms POST [...] El (more content not included)... Normal [facility] SPUTUM CULTUREon 03-17-2022 Epithelial cells LM Ql (Urine sed) Few Normal [facility] Comment on above: Performed By: #### B MP, BNP #### [facility] [address] [address] [address] Leni Hamlin Gram Stain Evaluation Comment Normal [facility] Comment on above: Result Comment: This specimen is of good quality and is acceptable for routine bacterial culture. Performed By: #### B MP, BNP #### [facility] [address] [place] [address] Dr. Leni Hamlin Lower Respiratory Culture Final report Normal [facility] Comment on above: Performed By: #### B MP, BNP #### [facility] [address] [place] [address] Dr. Leni Hamlin Result 1 Comment Normal [facility] Comment on above: Result Comment: Few gram negative rods. Performed By: #### B MP, BNP #### [facility] [address] [place] [address] Dr. Leni Hamlin Result Comment: Rout ine respiratory bola Result 2 Comment Normal [facility] Comment on above: Result Comment: Few gram positive cocci Performed By: #### B MP, BNP #### [facility] [address] [place] [address] Dr. Leni Hamlin Result 3 Comment Normal [facility] Comment on above: Result Comment: Rare gram positive rods Performed By: #### B MP, BNP #### [facility] [address] [place] [address] Dr. Leni Hamlin Result 4 Normal [facility] Comment on above: Performed By: #### B MP, BNP #### [facility] [address] [place] [address] Dr. Leni Hamlin White Blood Cells Few Normal [facility] Comment on above: Performed By: #### B MP, BNP #### [facility] [address] [place] [address] Dr. Leni Hamlin BNPon 03-15-2022 Natriuretic peptide B (Bld) [Mass/Vol] 429.0 pg/mL Normal <=900.0 [facility] Comment on above: Performed By: #### C MP, CRP #### [facility] [address] [place] [address] Dr. Leni Hamlin CBC AUTO DIFFon 03-15-2022 BASO # 0.0 103/ul Normal 0.0-0.1 [facility] Comment on above: Performed By: #### C VDAGS #### [facility] [address] [place] [address] Dr. Leni Hamlin Basophils/100 WBC (Bld) 0.2 % Normal 0.2-2.0 [facility] Comment on above: Performed By: #### C VDAGS #### [facility] [address] [place] [address] Dr. Leni Hamlin EO # 0.0 103/ul Normal 0.0-0.7 [facility] Comment on above: Performed By: #### C VDAGS #### [facility] [address] [place] [address] Dr. Leni Hamlin Eosinophils/100 WBC (Bld) 0.0 % Critically low 0.9-7.0 [facility] Comment on above: Performed By: #### C VDAGS #### [facility] [address] [place] [address] Dr. Leni Hamlin Erythrocyte distribution width (RBC) [Ratio] 13.6 % Normal 11.0-15.0 [facility] Comment on above: Performed By: #### C VDAGS #### [facility] [address] [place] [address] Dr. Leni Hamlin Hematocrit (Bld) [Volume fraction] 44.5 % Normal 42.0-54.0 [facility] Comment on above: Performed By: #### C VDAGS #### [facility] [address] [place] [address] Dr. Leni Hamlin Hemoglobin (Bld) [Mass/Vol] 13.8 g/dL Critically low 14.0-18.0 [facility] Comment on above: Performed By: #### C VDAGS #### [facility] [address] [place] [address] Dr. Leni Hamlin IG # 0.35 10e3/ul Critically high 0.00-0.03 [facility] Comment on above: Performed By: #### C VDAGS #### [facility] [address] [place] [address] Dr. Leni Hamlin IG % 2.4 % Critically high 0.0-0.5 [facility] Comment on above: Performed By: #### C VDAGS #### [facility] [address] [place] [address] Dr. Leni Hamlin LYMPH # 0.6 103/ul Critically low 1.2-3.8 [facility] Comment on above: Performed By: #### C VDAGS #### [facility] [address] [place] [address] Dr. Leni Hamlin Lymphocytes/100 WBC (Bld) 4.1 % Critically low 20.5-60.0 [facility] Comment on above: Performed By: #### C VDAGS #### [facility] [address] [place] [address] Dr. Leni Hamlin MANUAL DIFF REQ NO Normal [facility] Comment on above: Performed By: #### C VDAGS #### [facility] [address] [place] [address] Dr. Leni Hamlin MCH (RBC) [Entitic mass] 29.4 pg Normal 25.9-34.0 [facility] Comment on above: Performed By: #### C VDAGS #### [facility] [address] [place] [address] Dr. Leni Hamlin MCHC (RBC) [Mass/Vol] 31.0 g/dL Normal 29.9-35.2 [facility] Comment on above: Performed By: #### C VDAGS #### [facility] [address] [address] [address] Leni Hamlin MCV (RBC) [Entitic vol] 94.7 fL Critically high 80.0-94.0 [facility] Comment on above: Performed By: #### C VDAGS #### [facility] [address] [place] [address] Dr. Leni Hamlin MONO # 0.7 103/ul Normal 0.3-0.8 [facility] Comment on above: Performed By: #### C VDAGS #### [facility] [address] [place] [address] Dr. Leni Hamlin Monocytes/100 WBC (Bld) 4.7 % Normal 1.7-12.0 [facility] Comment on above: Performed By: #### C VDAGS #### [facility] [address] [place] [address] Dr. Leni Hamlin NEUT # 12.9 103/ul Critically high 1.4-6.5 [facility] Comment on above: Performed By: #### C VDAGS #### [facility] [address] [place] [address] Dr. Leni Hamlin Neutrophils/100 WBC (Bld) 88.6 % Critically high 43.0-75.0 [facility] Comment on above: Performed By: #### C VDAGS #### [facility] [address] [place] [address] Dr. Leni Hamlin Platelet mean volume (Bld) [Entitic vol] 10.2 fL Normal 9.5-13.5 [facility] Comment on above: Performed By: #### C VDAGS #### [facility] [address] [place] [address] Dr. Leni Hamlin PLT 176 103/ul Normal 150-450 [facility] Comment on above: Performed By: #### C VDAGS #### [facility] [address] [place] [address] Dr. Leni Hamlin RBC 4.70 106/ul Normal 4.70-6.10 [facility] Comment on above: Performed By: #### C VDAGS #### [facility] [address] [address] [address] Leni Hamlin WBC 14.6 103/ul Critically high 4.0-11.0 [facility] Comment on above: Performed By: #### C VDAGS #### [facility] [address] [place] [address] Dr. Leni Hamlin PROF CHEM 8 (BAS METB)on Anion gap [Moles/Vol] 10.2 mmol/L Normal [facility] Comment on above: Performed By: #### C MP, CRP #### [facility] [address] [place] [address] Dr. Leni Hamlin Calcium [Mass/Vol] 8.0 mg/dL Critically low 8.5-10.1 [facility] Comment on above: Performed By: #### C MP, CRP #### [facility] [address] [place] [address] Dr. Leni Hamlin Chloride [Moles/Vol] 104 mmol/L Normal 98-107 [facility] Comment on above: Performed By: #### C MP, CRP #### [facility] [address] [place] [address] Dr. Leni Hamlin CO2 [Moles/Vol] 28.2 mmol/L Normal 21.0-32.0 [facility] Comment on above: Performed By: #### C MP, CRP #### [facility] [address] [place] [address] Dr. Leni Hamlin Creatinine [Mass/Vol] 1.36 mg/dL Critically high 0.70-1.30 [facility] Comment on above: Performed By: #### C MP, CRP #### [facility] [address] [place] [address] Dr. Leni Hamlin EGFR-AF GAMBIAN >60 Normal >=60 [facility] Comment on above: Performed By: #### C MP, CRP #### [facility] [address] [place] [address] Dr. Leni Hamlin EGFR-NON AF GAMBIAN 51 mL/min/1.73m2 Critically low >=60 [facility] Comment on above: Performed By: #### C MP, CRP #### [facility] [address] [place] [address] Dr. Leni Hamlin Glucose [Mass/Vol] 205 mg/dL Critically high 74-106 T [facility] Comment on above: Performed By: #### C MP, CRP #### [facility] [address] [place] [address] Dr. Leni Hamlin Potassium [Moles/Vol] 4.4 mmol/L Normal 3.5-5.1 [facility] Comment on above: Performed By: #### C MP, CRP #### [facility] [address] [place] [address] Dr. Leni Hamlin Sodium [Moles/Vol] 138 mmol/L Normal 136-145 [facility] Comment on above: Performed By: #### C MP, CRP #### [facility] [address] [place] [address] Dr. Leni Hamlin Urea nitrogen [Mass/Vol] 29.0 mg/dL Critically high 7.0-18.0 [facility] Comment on above: Performed By: #### C MP, CRP #### [facility] [address] [place] [address] Dr. Leni Hamlin Urea nitrogen/Creatinine [Mass ratio] 21.3 mg/mg Normal [facility] Comment on above: Performed By: #### C MP, CRP #### [facility] [address] [place] [address] Dr. Leni Hamlin BNPon 03-14-2022 Natriuretic peptide B (Bld) [Mass/Vol] 337.0 pg/mL Normal <=900.0 [facility] Comment on above: Performed By: #### C RP #### [facility] [address] [place] [address] Dr. Leni Hamlin CBC AUTO DIFFon 03-14-2022 BASO # 0.0 103/ul Normal 0.0-0.1 [facility] Comment on above: Performed By: #### C MP, CRP #### [facility] [address] [place] [address] Dr. Leni Hamlin Basophils/100 WBC (Bld) 0.2 % Normal 0.2-2.0 [facility] Comment on above: Performed By: #### C MP, CRP #### [facility] [address] [place] [address] Dr. Leni Hamlin EO # 0.0 103/ul Normal 0.0-0.7 [facility] Comment on above: Performed By: #### C MP, CRP #### [facility] [address] [place] [address] Dr. Leni Hamlin Eosinophils/100 WBC (Bld) 0.0 % Critically low 0.9-7.0 [facility] Comment on above: Performed By: #### C MP, CRP #### [facility] [address] [place] [address] Dr. Leni Hamlin Erythrocyte distribution width (RBC) [Ratio] 13.6 % Normal 11.0-15.0 [facility] Comment on above: Performed By: #### C MP, CRP #### [facility] [address] [place] [address] Dr. Leni Hamlin Hematocrit (Bld) [Volume fraction] 47.8 % Normal 42.0-54.0 [facility] Comment on above: Performed By: #### C MP, CRP #### [facility] [address] [place] [address] Dr. Leni Hamlin Hemoglobin (Bld) [Mass/Vol] 14.6 g/dL Normal 14.0-18.0 [facility] Comment on above: Performed By: #### C MP, CRP #### [facility] [address] [place] [address] Dr. Lnei Hamlin IG # 0.22 10e3/ul Critically high 0.00-0.03 [facility] Comment on above: Performed By: #### C MP, CRP #### [facility] [address] [place] [address] Dr. Leni Hamlin IG % 1.3 % Critically high 0.0-0.5 [facility] [place] Comment on above: Performed By: #### C MP, CRP #### [facility] [address] [address] [address] Leni Hamlin LYMPH # 0.5 103/ul Critically low 1.2-3.8 [facility] Comment on above: Performed By: #### C MP, CRP #### [facility] [address] [address] [address] Leni Hamlin Lymphocytes/100 WBC (Bld) 2.9 % Critically low 20.5-60.0 [facility] Comment on above: Performed By: #### C MP, CRP #### [facility] [address] [place] [address] Dr. Leni Hamlin MANUAL DIFF REQ NO Normal [facility] Comment on above: Performed By: #### C MP, CRP #### [facility] [address] [place] [address] Dr. Leni Hamlin MCH (RBC) [Entitic mass] 29.4 pg Normal 25.9-34.0 [facility] Comment on above: Performed By: #### C MP, CRP #### [facility] [address] [place] [address] Dr. Leni Hamlin MCHC (RBC) [Mass/Vol] 30.5 g/dL Normal 29.9-35.2 [facility] Comment on above: Performed By: #### C MP, CRP #### [facility] [address] [place] [address] Dr. Leni Hamlin MCV (RBC) [Entitic vol] 96.4 fL Critically high 80.0-94.0 [facility] Comment on above: Performed By: #### C MP, CRP #### [facility] [address] [place] [address] Dr. Leni Hamlin MONO # 1.1 103/ul Critically high 0.3-0.8 [facility] Comment on above: Performed By: #### C MP, CRP #### [facility] [address] [place] [address] Dr. Leni Hamlin Monocytes/100 WBC (Bld) 6.4 % Normal 1.7-12.0 [facility] Comment on above: Performed By: #### C MP, CRP #### [facility] [address] [address] [address] Leni Hamlin NEUT # 15.2 103/ul Critically high 1.4-6.5 [facility] Comment on above: Performed By: #### C MP, CRP #### [facility] [address] [address] [address] Leni Hamlin Neutrophils/100 WBC (Bld) 89.2 % Critically high 43.0-75.0 [facility] Comment on above: Performed By: #### C MP, CRP #### [facility] [address] [address] [address] Leni Hamlin Platelet mean volume (Bld) [Entitic vol] 10.4 fL Normal 9.5-13.5 [facility] Comment on above: Performed By: #### C MP, CRP #### [facility] [address] [address] [address] Leni Hamlin PLT 167 103/ul Normal 150-450 [facility] Comment on above: Performed By: #### C MP, CRP #### [facility] [address] [address] [address] Leni Hamlin RBC 4.96 106/ul Normal 4.70-6.10 [facility] Comment on above: Performed By: #### C MP, CRP #### [facility] [address] [address] [address] Leni Hamlin WBC 17.0 103/ul Critically high 4.0-11.0 [facility] Comment on above: Performed By: #### C MP, CRP #### [facility] [address] [address] [address] Leni Hamlin PROF CHEM 8 (BAS METB)on Anion gap [Moles/Vol] 7.0 mmol/L Normal [facility] Comment on above: Performed By: #### C VDAGS #### [facility] [address] [address] [address] Leni Hamlin Calcium [Mass/Vol] 8.3 mg/dL Critically low 8.5-10.1 [facility] Comment on above: Performed By: #### C VDAGS #### [facility] [address] [place] [address] Dr. Leni Hamlin Chloride [Moles/Vol] 102 mmol/L Normal 98-107 [facility] Comment on above: Performed By: #### C VDAGS #### [facility] [address] [place] [address] Dr. Leni Hamlin CO2 [Moles/Vol] 29.6 mmol/L Normal 21.0-32.0 [facility] Comment on above: Performed By: #### C VDAGS #### [facility] [address] [place] [address] Dr. Leni Hamlin Creatinine [Mass/Vol] 1.48 mg/dL Critically high 0.70-1.30 [facility] Comment on above: Performed By: #### C VDAGS #### [facility] [address] [place] [address] Dr. Leni Hamlin EGFR-AF GAMBIAN 56 mL/min/1.73m2 Critically low >=60 [facility] Comment on above: Performed By: #### C VDAGS #### [facility] [address] [place] [address] Dr. Leni Hamlin EGFR-NON AF GAMBIAN 47 mL/min/1.73m2 Critically low >=60 [facility] Comment on above: Performed By: #### C VDAGS #### [facility] [address] [place] [address] Dr. Leni Hamlin Glucose [Mass/Vol] 168 mg/dL Critically high 74-106 [facility] Comment on above: Performed By: #### C VDAGS #### [facility] [address] [place] [address] Dr. Leni Hamlin Potassium [Moles/Vol] 4.6 mmol/L Normal 3.5-5.1 [facility] Comment on above: Performed By: #### C VDAGS #### [facility] [address] [place] [address] Dr. Leni Hamlin Sodium [Moles/Vol] 134 mmol/L Critically low 136-145 [facility] Comment on above: Performed By: #### C VDAGS #### [facility] [address] [place] [address] Dr. Leni Hamlin Urea nitrogen [Mass/Vol] 29.0 mg/dL Critically high 7.0-18.0 [facility] Comment on above: Performed By: #### C VDAGS #### [facility] [address] [place] [address] Dr. Leni Hamlin Urea nitrogen/Creatinine [Mass ratio] 19.6 mg/mg Normal [facility] Comment on above: Performed By: #### C VDAGS #### [facility] [address] [place] [address] Dr. Leni Hamlin BNPon 03-13-2022 Natriuretic peptide B (Bld) [Mass/Vol] 501.0 pg/mL Normal <=900.0 [facility] Comment on above: Performed By: #### B MP, BNP #### [facility] [address] [place] [address] Dr. Leni Hamlin CBC W MANUAL DIFFon 03-13-20 ATYPICAL LYMPH # Normal [facility] Comment on above: Performed By: #### C VDAGS #### [facility] [address] [place] [address] Dr. Leni Hamlin ATYPICAL LYMPH % Normal [facility] Comment on above: Performed By: #### C VDAGS #### [facility] [address] [place] [address] Dr. Leni Hamlin BAND # 2.1 103/ul Critically high 0.0-0.3 [facility] Comment on above: Performed By: #### C VDAGS #### [facility] [address] [place] [address] Dr. Leni Hamlin BAND % 12 % Critically high 0-5 [facility] Comment on above: Performed By: #### C VDAGS #### [facility] [address] [place] [address] Dr. Leni Hamlin BASOM # 0.00 103/ul Normal 0.00-0.10 [facility] Comment on above: Performed By: #### C VDAGS #### [facility] [address] [place] [address] Dr. Leni Hamlin BASOM % 0.0 % Critically low 0.2-2.0 [facility] Comment on above: Performed By: #### C VDAGS #### [facility] [address] [place] [address] Dr. Leni Hamlin BLAST # Normal [facility] Comment on above: Performed By: #### C VDAGS #### [facility] [address] [place] [address] Dr. Leni Hamlin BLAST % Normal [facility] Comment on above: Performed By: #### C VDAGS #### [facility] [address] [place] [address] Dr. Leni Hamlin CORRECTED WBC Normal 4.0-11.0 [facility] Comment on above: Performed By: #### C VDAGS #### [facility] [address] [place] [address] Dr. Leni Hamlin EOS # 0.00 103/ul Normal 0.00-0.70 [facility] Comment on above: Performed By: #### C VDAGS #### [facility] [address] [place] [address] Dr. Leni Hamlin EOS% 0.0 % Critically low 0.9-7.0 [facility] Comment on above: Performed By: #### C VDAGS #### [facility] [address] [place] [address] Dr. Leni Hamlin HCT 51.2 % Normal 42.0-54.0 [facility] Comment on above: Performed By: #### C VDAGS #### [facility] [address] [place] [address] Dr. Leni Hamlin HGB 15.4 g/dl Normal 14.0-18.0 [facility] Comment on above: Performed By: #### C VDAGS #### [facility] [address] [place], [place] [id number] Dr. Leni Hamlin LYMPHM # 0.52 103/ul Critically low 1.20-3.80 [facility] Comment on above: Performed By: #### C VDAGS #### [facility] [address] [place] [address] Dr. Leni Hamlin LYMPHM% 3.0 % Critically low 20.5-60.0 [facility] Comment on above: Performed By: #### C VDAGS #### [facility] [address] [place] [address] Dr. Leni Hamlin MCH 29.6 pg Normal 25.9-34.0 [facility] Comment on above: Performed By: #### C VDAGS #### [facility] [address] [place] [address] Dr. Leni Hamlin MCHC 30.1 g/dl Normal 29.9-35.2 [facility] Comment on above: Performed By: #### C VDAGS #### [facility] [address] [place] [address] Dr. Leni Hamlin MCV 98.5 fL Critically high 80.0-94.0 [facility] Comment on above: Performed By: #### C VDAGS #### [facility] [address] [place] [address] Dr. Leni Hamlin METAMYELOCYTE # Normal [facility] Comment on above: Performed By: #### C VDAGS #### [facility] [address] [place] [address] Dr. Leni Hamlin METAMYELOCYTE % Normal [facility] Comment on above: Performed By: #### C VDAGS #### [facility] [address] [place] [address] Dr. Leni Hamlin MONOM# 0.86 103/ul Critically high 0.30-0.80 [facility] Comment on above: Performed By: #### C VDAGS #### [facility] [address] [place] [address] Dr. Leni Hamlin MONOM% 5.0 % Normal 1.7-12.0 [facility] Comment on above: Performed By: #### C VDAGS #### [facility] [address] [address] [address] Leni Hamlin MPV 10.0 fL Normal 9.5-13.5 [facility] Comment on above: Performed By: #### C VDAGS #### [facility] [address] [address] [address] Leni Hamlin MYELOCYTE # Normal [facility] Comment on above: Performed By: #### C VDAGS #### [facility] [address] [address] [address] Leni Hamlin MYELOCYTE % Normal [facility] Comment on above: Performed By: #### C VDAGS #### [facility] [address] [place] [address] Dr. Leni Hamlin NRBC Normal [facility] Comment on above: Performed By: #### C VDAGS #### [facility] [address] [address] [address] Leni Hamlin PLT 161 103/ul Normal 150-450 [facility] Comment on above: Performed By: #### C VDAGS #### [facility] [address] [address] [address] Leni Hamlin RBC 5.20 106/ul Normal 4.70-6.10 [facility] Comment on above: Performed By: #### C VDAGS #### [facility] [address] [place] [address] Dr. Leni Hamlin RDW 13.5 % Normal 11.0-15.0 [facility] Comment on above: Performed By: #### C VDAGS #### [facility] [address] [address] [address] Leni Hamlin SEG # 13.76 103/ul Critically high 1.40-6.50 [facility] Comment on above: Performed By: #### C VDAGS #### [facility] [address] [place] [address] Dr. Lnei Hamlin SEG % 80.0 % Critically high 43.0-75.0 [facility] Comment on above: Performed By: #### C VDAGS #### [facility] [address] [address] [address] Leni Hamlin WBC 17.2 103/ul Critically high 4.0-11.0 [facility] Comment on above: Performed By: #### C VDAGS #### [facility] [address] [place] [address] Dr. Leni Hamlin PROF CHEM 8 (BAS METB)on Anion gap [Moles/Vol] 12.5 mmol/L Normal [facility] Comment on above: Performed By: #### C VDAGS #### [facility] [address] [place] [address] Dr. Leni Hamlin Calcium [Mass/Vol] 8.4 mg/dL Critically low 8.5-10.1 [facility] Comment on above: Performed By: #### C VDAGS #### [facility] [address] [place] [address] Dr. Leni Hamlin Chloride [Moles/Vol] 100 mmol/L Normal 98-107 [facility] Comment on above: Performed By: #### C VDAGS #### [facility] [address] [place] [address] Dr. Leni Hamlin CO2 [Moles/Vol] 26.7 mmol/L Normal 21.0-32.0 [facility] Comment on above: Performed By: #### C VDAGS #### [facility] [address] [place] [address] Dr. Leni Hamlin Creatinine [Mass/Vol] 1.87 mg/dL Critically high 0.70-1.30 [facility] Comment on above: Performed By: #### C VDAGS #### [facility] [address] [place] [address] Dr. Leni Hamlin EGFR-AF GAMBIAN 43 mL/min/1.73m2 Critically low >=60 [facility] Comment on above: Performed By: #### C VDAGS #### [facility] [address] [place] [address] Dr. Leni Hamlin EGFR-NON AF GAMBIAN 36 mL/min/1.73m2 Critically low >=60 [facility] Comment on above: Performed By: #### C VDAGS #### [facility] [address] [place] [address] Dr. Leni Hamlin Glucose [Mass/Vol] 222 mg/dL Critically high 74-106 [facility] Comment on above: Performed By: #### C VDAGS #### [facility] [address] [place] [address] Dr. Leni Hamlin Potassium [Moles/Vol] 4.2 mmol/L Normal 3.5-5.1 [facility] Comment on above: Performed By: #### C VDAGS #### [facility] [address] [place] [address] Dr. Leni Hamlin Sodium [Moles/Vol] 135 mmol/L Critically low 136-145 [facility] Comment on above: Performed By: #### C VDAGS #### [facility] [address] [place] [address] Dr. Leni Hamlin Urea nitrogen [Mass/Vol] 25.0 mg/dL Critically high 7.0-18.0 [facility] Comment on above: Performed By: #### C VDAGS #### [facility] [address] [place] [address] Dr. Leni Hamlin Urea nitrogen/Creatinine [Mass ratio] 13.4 mg/mg Normal [facility] Comment on above: Performed By: #### C VDAGS #### [facility] [address] [place] [address] Dr. Leni Hamlin Anion gap [Moles/Vol] 10.7 mmol/L Normal [facility] Comment on above: Performed By: #### B MP, BNP #### [facility] [address] [place] [address] Dr. Leni Hamlin Calcium [Mass/Vol] 8.2 mg/dL Critically low 8.5-10.1 [facility] Comment on above: Performed By: #### B MP, BNP #### [facility] [address] [place] [address] Dr. Leni Hamlin Chloride [Moles/Vol] 101 mmol/L Normal 98-107 [facility] Comment on above: Performed By: #### B MP, BNP #### [facility] [address] [address] [address] Leni Hamlin CO2 [Moles/Vol] 30.0 mmol/L Normal 21.0-32.0 [facility] Comment on above: Performed By: #### B MP, BNP #### [facility] [address] [address] [address] Leni Hamlin Creatinine [Mass/Vol] 1.49 mg/dL Critically high 0.70-1.30 [facility] Comment on above: Performed By: #### B MP, BNP #### [facility] [address] [place] [address] Dr. Leni Halmin EGFR-AF GAMBIAN 56 mL/min/1.73m2 Critically low >=60 [facility] Comment on above: Performed By: #### B MP, BNP #### [facility] [address] [place] [address] Dr. Leni Hamlin EGFR-NON AF GAMBIAN 46 mL/min/1.73m2 Critically low >=60 [facility] Comment on above: Performed By: #### B MP, BNP #### [facility] [address] [place] [address] Dr. Leni Hamlin Glucose [Mass/Vol] 158 mg/dL Critically high 74-106 [facility] Comment on above: Performed By: #### B MP, BNP #### [facility] [address] [place] [address] Dr. Leni Hamlin Potassium [Moles/Vol] 5.7 mmol/L Critically high 3.5-5.1 [facility] Comment on above: Performed By: #### B MP, BNP #### [facility] [address] [place] [address] Dr. Leni Hamlin Sodium [Moles/Vol] 136 mmol/L Normal 136-145 [facility] Comment on above: Performed By: #### B MP, BNP #### [facility] [address] [place] [address] Dr. Leni Hamlin Urea nitrogen [Mass/Vol] 19.0 mg/dL Critically high 7.0-18.0 [facility] Comment on above: Performed By: #### B MP, BNP #### [facility] [address] [place] [address] Dr. Leni Hamlin Urea nitrogen/Creatinine [Mass ratio] 12.8 mg/mg Normal [facility] Comment on above: Performed By: #### B MP, BNP #### [facility] [address] [place] [address] Dr. Leni Hamlin BNPon 03-12-2022 Natriuretic peptide B (Bld) [Mass/Vol] 405.0 pg/mL Normal <=900.0 [facility] Comment on above: Performed By: #### B MP, BNP #### [facility] [address] [place] [address] Dr. Leni Hamlin CBC AUTO DIFFon 03-12-2022 BASO # 0.1 103/ul Normal 0.0-0.1 [facility] Comment on above: Performed By: #### C BC #### [facility] [address] [place] [address] Dr. Leni Hamlin Basophils/100 WBC (Bld) 0.3 % Normal 0.2-2.0 [facility] Comment on above: Performed By: #### C BC #### [facility] [address] [place] [address] Dr. Leni Hamlin EO # 0.0 103/ul Normal 0.0-0.7 [facility] Comment on above: Performed By: #### C BC #### [facility] [address] [place] [address] Dr. Leni Hamlin Eosinophils/100 WBC (Bld) 0.1 % Critically low 0.9-7.0 [facility] Comment on above: Performed By: #### C BC #### [facility] [address] [place] [address] Dr. Leni Hamlin Erythrocyte distribution width (RBC) [Ratio] 13.3 % Normal 11.0-15.0 [facility] Comment on above: Performed By: #### C BC #### [facility] [address] [address] [address] Leni Hamlin Hematocrit (Bld) [Volume fraction] 52.2 % Normal 42.0-54.0 [facility] Comment on above: Performed By: #### C BC #### [facility] [address] [address] [address] Leni Hamlin Hemoglobin (Bld) [Mass/Vol] 16.5 g/dL Normal 14.0-18.0 [facility] Comment on above: Performed By: #### C BC #### [facility] [address] [address] [address] Leni Hamlin IG # 0.19 10e3/ul Critically high 0.00-0.03 [facility] Comment on above: Performed By: #### C BC #### [facility] [address] [address] [address] Leni Hamlin IG % 1.0 % Critically high 0.0-0.5 [facility] Comment on above: Performed By: #### C BC #### [facility] [address] [address] [address] Leni Hamlin LYMPH # 0.8 103/ul Critically low 1.2-3.8 [facility] Comment on above: Performed By: #### C BC #### [facility] [address] [address] [address] Leni Hamlin Lymphocytes/100 WBC (Bld) 3.8 % Critically low 20.5-60.0 [facility] Comment on above: Performed By: #### C BC #### [facility] [address] [address] [address] Leni Hamlin MANUAL DIFF REQ NO Normal [facility] Comment on above: Performed By: #### C BC #### [facility] [address] [place] [address] Dr. Leni Hamlin MCH (RBC) [Entitic mass] 29.6 pg Normal 25.9-34.0 [facility] Comment on above: Performed By: #### C BC #### [facility] [address] [address] [address] Leni Hamlin MCHC (RBC) [Mass/Vol] 31.6 g/dL Normal 29.9-35.2 [facility] Comment on above: Performed By: #### C BC #### [facility] [address] [address] [address] Leni Hamlin MCV (RBC) [Entitic vol] 93.7 fL Normal 80.0-94.0 [facility] Comment on above: Performed By: #### C BC #### [facility] [address] [address] [address] Leni Hamlin MONO # 1.6 103/ul Critically high 0.3-0.8 [facility] Comment on above: Performed By: #### C BC #### [facility] [address] [place] [address] Dr. Leni Hamlin Monocytes/100 WBC (Bld) 8.3 % Normal 1.7-12.0 [facility] Comment on above: Performed By: #### C BC #### [facility] [address] [address] [address] Leni Hamlin NEUT # 17.0 103/ul Critically high 1.4-6.5 [facility] Comment on above: Performed By: #### C BC #### [facility] [address] [address] [address] Leni Hamlin Neutrophils/100 WBC (Bld) 86.5 % Critically high 43.0-75.0 [facility] Comment on above: Performed By: #### C BC #### [facility] [address] [address] [address] Leni Hamlin Platelet mean volume (Bld) [Entitic vol] 10.0 fL Normal 9.5-13.5 [facility] Comment on above: Performed By: #### C BC #### [facility] [address] [address] [address] Leni Hamlin PLT 194 103/ul Normal 150-450 [facility] Comment on above: Performed By: #### C BC #### [facility] [address] [place], [place] [address] Dr. Leni Hamlin RBC 5.57 106/ul Normal 4.70-6.10 [facility] Comment on above: Performed By: #### C BC #### [facility] [address] [place], [place] [address] Dr. Leni Hamlin WBC 19.7 103/ul Critically high 4.0-11.0 [facility] Comment on above: Performed By: #### C BC #### [facility] [address] [place], [place] [address] CSPINE WO CONon [...] CIERA HERNÁNDEZ Date: 2022-03-12 13:42 Normal [facility] CT HEAD WO CONon 03-12-2022 CT [...] SUSAN KC Date: 2022-03-12 13:20 Normal [facility] CTA CHEST WO W CONon 022 [...] CIERA HERNÁNDEZ Date: 2022-03-12 14:46 Normal [facility] CULTURE BLOODon 03-12-2022 Microscopic examination of blood, culture Culture Observations: NO GROWTH AT 5 DAYS. Normal [facility] Comment on above: Performed By: #### C MP, CRP #### [facility] [address] [place] [address] Dr. Leni Hamlin Microscopic examination of blood, culture Culture Observations: NO GROWTH AT 5 DAYS. Normal [facility] Comment on above: Performed By: #### C MP, CRP #### [facility] [address] [place] [id number] [address] Leni Hamlin Covid-19 PCR ([facility])on SARS-CoV-2 (COVID-19) RNA VENESSA+probe Ql (Unsp spec) Not detected Normal NOT DETECTED [facility] Comment on above: Result Comment: When diagnostic testing is negative, the possibility of a false negative should be considered in the context of a patient's recent exposures and the presence of clinical signs and symptoms consistent with SARS-CoV-2. This test is not yet approved or cleared by the [place] Food and Drug Administration (FDA). This test was developed by [employer], [place], [place]. The performance characteristics of this test were validated by [facility]. The results are not intended to be used as the sole means for clinical diagnosis or patient management decisions. [facility] is authorized under Clinical Laboratory Improvement [...] for this test is supported by the Director Of Personnel of Health and Human Service's declaration that [...] used). Performed By: #### C RP #### [facility] [address] [place] [id number] [address] Leni Hamlin D-DIMERon 03-12-2022 D-DIMER 6.00 mg/L FEU Critically high 0.19-0.50 [facility] Comment on above: Performed By: #### B MP, BNP #### [facility] [address] [place] [address] Dr. Leni Hamlin D-DIMER COMMENTS SEE BELOW Normal [facility] Comment on above: Result Comment: Incr [...] Performed By: #### B MP, BNP #### [facility] [address] [place] [address] Dr. Leni Hamlin ER URINE PROFILEon 2 Bilirubin Ql (U) Negative Normal NEGATIVE [facility] Comment on above: Performed By: #### C RP #### [facility] [address] [place] [address] Dr. Leni Hamlin Clarity (U) CLEAR Normal CLEAR [facility] Comment on above: Performed By: #### C RP #### [facility] [address] [place] [address] Dr. Leni Hamlin Color (U) YELLOW Normal YELLOW [facility] Comment on above: Performed By: #### C RP #### [facility] [address] [place] [address] Dr. Leni ELLIS A micrscopic examination will be performed if indicated. Normal [facility] Comment on above: Performed By: #### C RP #### [facility] [address] [place] [address] Dr. Leni Hamlin Glucose Ql (U) Negative Normal NEGATIVE [facility] Comment on above: Performed By: #### C RP #### [facility] [address] [place] [address] Dr. Leni Hamlin Hemoglobin Ql (U) SMALL Abnormal NEGATIVE [facility] Comment on above: Performed By: #### C RP #### [facility] [address] [place] [address] Dr. Leni Hamlin Ketones Ql (U) Negative Normal NEGATIVE [facility] Comment on above: Performed By: #### C RP #### [facility] [address] [place] [address] Dr. Leni Hamlin LEUKOCYTES Negative Normal NEGATIVE [facility] Comment on above: Performed By: #### C RP #### [facility] [address] [place] [address] Dr. Leni Hamlin Nitrite Ql (U) Negative Normal NEGATIVE [facility] Comment on above: Performed By: #### C RP #### [facility] [address] [place] [address] Dr. Leni Hamlin pH (U) 5.5 [pH] Normal 5-9 [facility] Comment on above: Performed By: #### C RP #### [facility] [address] [place] [address] Dr. Leni Hamlin SPEC GRAVITY <=1.005 Abnormal 1.005-<=1.025 [facility] Comment on above: Performed By: #### C RP #### [facility] [address] [place] [address] Dr. Leni Hamlin UA PROTEIN >300 Abnormal NEGATIVE/ TRACE [facility] Comment on above: Performed By: #### C RP #### [facility] [address] [place] [address] Dr. Leni Hamlin UR MICRO IND INDICATED Normal [facility] Comment on above: Performed By: #### C RP #### [facility] [address] [place] [address] Dr. Leni Hamlin Urobilinogen Qn (U) 0.2 {Stacy'U}/dL Normal 0.2 - 1. 0 [facility] Comment on above: Performed By: #### C RP #### [facility] [address] [place] [address] Dr. Leni Hamlin LACTATE/LACTIC ACIDon 2021 Lactate [Moles/Vol] 0.5 mmol/L Normal 0.4-2.0 [facility] Comment on above: Performed By: #### B MP, BNP #### [facility] [address] [place] [address] Dr. Leni Hamlin Lactate [Moles/Vol] 1.6 mmol/L Normal 0.4-2.0 [facility] Comment on above: Performed By: #### L ACT #### [facility] [address] [place] [address] Dr. Leni Hamlin PROF 14(COMP METB)on 022 Albumin [Mass/Vol] 3.1 g/dL Critically low 3.4-5.0 [facility] Comment on above: Performed By: #### B MP, BNP #### [facility] [address] [place] [address] Dr. Leni Hamlin Albumin/Globulin [Mass ratio] 0.8 {ratio} Normal [facility] Comment on above: Performed By: #### B MP, BNP #### [facility] [address] [place] [address] Dr. Leni Hamlin ALP [Catalytic activity/Vol] 52 U/L Normal 46-116 [facility] Comment on above: Performed By: #### B MP, BNP #### [facility] [address] [place] [address] Dr. Leni Hamlin ALT [Catalytic activity/Vol] 27 U/L Normal 16-63 [facility] Comment on above: Performed By: #### B MP, BNP #### [facility] [address] [place] [address] Dr. Leni Hamlin Anion gap [Moles/Vol] 12.9 mmol/L Normal [facility] Comment on above: Performed By: #### B MP, BNP #### [facility] [address] [place] [address] Dr. Leni Hamlin AST [Catalytic activity/Vol] 14 U/L Critically low 15-37 [facility] Comment on above: Performed By: #### B MP, BNP #### [facility] [address] [place] [address] Dr. Leni Hamlin Bilirubin [Mass/Vol] 1.2 mg/dL Critically high 0.2-1.0 [facility] Comment on above: Performed By: #### B MP, BNP #### [facility] [address] [place] [address] Dr. Leni Hamlin Calcium [Mass/Vol] 8.2 mg/dL Critically low 8.5-10.1 [facility] Comment on above: Performed By: #### B MP, BNP #### [facility] [address] [place] [address] [address] Leni Hamlin Chloride [Moles/Vol] 99 mmol/L Normal 98-107 [facility] Comment on above: Performed By: #### B MP, BNP #### [facility] [address] [place] [address] Dr. Leni Hamlin CO2 [Moles/Vol] 28.4 mmol/L Normal 21.0-32.0 [facility] Comment on above: Performed By: #### B MP, BNP #### [facility] [address] [place] [address] Dr. Leni Hamlin Creatinine [Mass/Vol] 1.44 mg/dL Critically high 0.70-1.30 [facility] Comment on above: Performed By: #### B MP, BNP #### [facility] [address] [place] [address] Dr. Leni Hamlin EGFR-AF GAMBIAN 58 mL/min/1.73m2 Critically low >=60 [facility] Comment on above: Performed By: #### B MP, BNP #### [facility] [address] [place] [address] Dr. Leni Hamiln EGFR-NON AF GAMBIAN 48 mL/min/1.73m2 Critically low >=60 [facility] Comment on above: Performed By: #### B MP, BNP #### [facility] [address] [place] [address] Dr. Leni Hamlin Globulin (S) [Mass/Vol] 3.8 g/dL Normal [facility] Comment on above: Performed By: #### B MP, BNP #### [facility] [address] [place] [address] Dr. Leni Hamlin Glucose [Mass/Vol] 137 mg/dL Critically high 74-106 [facility] Comment on above: Performed By: #### B MP, BNP #### [facility] [address] [place] [address] Dr. Leni Hamlin Potassium [Moles/Vol] 4.3 mmol/L Normal 3.5-5.1 [facility] Comment on above: Performed By: #### B MP, BNP #### [facility] [address] [place] [address] Dr. Leni Hamlin Protein [Mass/Vol] 6.9 g/dL Normal 6.1-8.2 [facility] Comment on above: Performed By: #### B MP, BNP #### [facility] [address] [place] [address] Dr. Leni Hamlin Sodium [Moles/Vol] 136 mmol/L Normal 136-145 [facility] Comment on above: Performed By: #### B MP, BNP #### [facility] [address] [place] [address] Dr. Leni Hamlin Urea nitrogen [Mass/Vol] 15.0 mg/dL Normal 7.0-18.0 [facility] Comment on above: Performed By: #### B MP, BNP #### [facility] [address] [place] [address] Dr. Leni Hamlin Urea nitrogen/Creatinine [Mass ratio] 10.4 mg/mg Normal [facility] Comment on above: Performed By: #### B MP, BNP #### [facility] [address] [place] [address] Dr. Leni Hamlin PROTIMEon 03-12-2022 INR Coag (PPP) [Relative time] 1.07 {INR} Normal [facility] Comment on above: Performed By: #### B MP, BNP #### [facility] [address] [place] [address] Dr. Leni Hamlin INR GUIDELINES SEE BELOW Normal [facility] Comment on above: Result Comment: WAQAS RED INR: 2.0 - 3.0 CONDITIONS NOT LISTED BELOW 2.5 - 3.5 FOR PROSTHETIC HEART VALVE REPLACEMENT 2.5 - 3.5 RECURRENT THROMBOSIS Performed By: #### B MP, BNP #### [facility] [address] [place] [address] Dr. Leni Hamlin PT Coag (PPP) [Time] 11.5 s Normal 9.0-11.6 [facility] Comment on above: Performed By: #### B MP, BNP #### [facility] [address] [place] [address] Dr. Leni Hamlin TROPONIN, HIGH SENSITIVITYon 03-12-2022 HSTROP 12.8 pg/mL Normal 4.0-76.1 [facility] Comment on above: Result Comment: CUT- OFF POINTS HAVE BEEN ESTABLISHED BASED ON THE FOURTH UNIVERSAL DEFINITIONS OF MYOCARDIAL INFARCTION. THE UPPER REFERENCE LIMIT (URL) OF TROPONIN, DEFINED THE 99TH PERCENTILE OF cTnI DISTRIBUTION IN A REFERENCE POPULATION, HAS BEEN CONFIRMED THE DECISION THRESHOLD FOR [place] DIAGNOSIS. Performed By: #### B MP, BNP #### [facility] [address] [place] [address] Dr. Leni Hamlin URINE MICROSCOPIC ONLYon BACTERIA NONE SEEN Normal NONE SEEN [facility] Comment on above: Performed By: #### C RP #### [facility] [address] [place] [address] Dr. Leni Hamlin Bacteria identified Cx Nom (U) NOT INDICATED Normal [facility] Comment on above: Performed By: #### C RP #### [facility] [address] [place] [address] Dr. Leni Hamlin CAST NONE SEEN Normal NONE SEEN [facility] Comment on above: Performed By: #### C RP #### [facility] [address] [place] [address] Dr. Leni Hamlin Crystals LM Nom (Urine sed) NONE SEEN Normal NONE SEEN [facility] Comment on above: Performed By: #### C RP #### [facility] [address] [place] [address] Dr. Leni Hamlin Epithelial cells LM Ql (Urine sed) NONE SEEN Normal NONE SEEN /RARE [facility] Comment on above: Performed By: #### C RP #### [facility] [address] [place] [address] Dr. Leni Hamlin MUCOUS MODERATE Abnormal NONE SEEN [facility] Comment on above: Performed By: #### C RP #### [facility] [address] [place] [address] Dr. Leni Hamlin RBC 2-5 Abnormal 0-2 [facility] Comment on above: Performed By: #### C RP #### [facility] [address] [place] [address] [address] Leni Hamlin WBC NONE SEEN Normal NONE SEEN [facility] Comment on above: Performed By: #### C RP #### [facility] [address] [place] [address] [address] Leni Hamlin XR RIBS RT PA [...] CIERA HERNÁNDEZ Date: 2022-03-12 13:35 Normal [facility] Covid-19 PCR ([facility]VD[facility])on 01-09 SARS-CoV-2 (COVID-19) RNA VENESSA+probe Ql (Unsp spec) Not detected Normal NOT DETECTED [facility] Comment on above: Result Comment: This test is not yet approved or cleared by the [place] FDA. When there are no FDA-approved or cleared tests available, and other criteria are met, FDA can make tests available under an emergency access mechanism called an Emergency Use Authorization (EUA). The EUA for this test is supported by the Director Of Personnel of Health and Human Service's (HHS's) declaration [...] SARS-CoV-2. Performed By: #### C RP #### [facility] [address] [place] [address] Dr. Leni Hamlin INFLUENZA A AND B AGon 01-25 [facility] SEE BELOW Normal [facility] Comment on above: Result Comment: Nega tive for Flu A protein angiten. Infection due to Flu A cannot be ruled out. Flu A angiten in the sample may be below the detection limit of the test. Performed By: #### C RP #### [facility] [address] [place] [address] Dr. Leni Hamlin [facility] SEE BELOW Normal [facility] Comment on above: Result Comment: Nega tive for Flu B protein antigen. Infection due to Flu B cannot be ruled out. Flu B antigen in the sample may be below the detection limit of the test. Performed By: #### C RP #### [facility] [address] [place] [address] Dr. Leni Hamlin INFLUENZA A AG Negative Normal NEGATIVE SEE COMMENT [facility] Comment on above: Performed By: #### C RP #### [facility] [address] [place] [address] Dr. Leni Hamlin INFLUENZA B AG Negative Normal NEGATIVE SEE COMMENT [facility] Comment on above: Performed By: #### C RP #### [facility] [address] [place] [address] Dr. Leni Hamlin INTERNAL CONTROLS Within Normal Limits Normal Wi thin Normal Limits [facility] Comment on above: Performed By: #### C RP #### [facility] [address] [place] [address] Dr. Leni Hamlin COVID-19 Antigenon 2 COVID-19 [...] its performance Cindy Disclaimer characteristic determined by License Buddy and Cindy Disclaimer validated at [facility]. This Cindy Disclaimer test has not [...] Emergency Use Authorization for Coronavirus Cindy Disclaimer isease-2018 during the Public Health Emergency) Cindy Disclaimer [...] is terminated or revoked sooner. PERFORMED BY: [place] [address] PATHOLOGIST [employer] ZOHAIB JEWELL M.D. Normal [facility] Comment on above: Performed By: #### C OVID-19 CINDY, SOFIANEG #### [place] [id number] [place] Cindy Ag Negativeon 12-01-19 Cindy Ag Negative Negative Normal Negative [facility] Comment on above: Result Comment: This is a duplicate Cindy SARS Antigen (JENNIFER) result to be used for statistical tracking purpose only. PERFORMED BY: [place] [address] PATHOLOGIST [employer]WORK [employer]EDER ZOHAIB JEWELL M.D. Performed By: #### C OVID-19 CINDY, SOFIANEG #### [facility] [address] [place], [place] [id number] [place] Encounters Encounter Date Encounter Type Care Provider Facility Start: 03-02-2024 End: 03-03-2024 ambulatory Urvashi Rawls MD Facility[facility] Start: 02-26-2024 End: 02-26-2024 ambulatory MODESTO BECERRA [facility] Start: 01-31-2024 End: 01-31-2024 ambulatory MAJOR BERRYLI [facility] Start: 01-27-2024 End: 01-28-2024 ambulatory Urvashi Rawls MD Facility:[facility] Start: 12-30-2023 End: 12-31-2023 ambulatory Urvashi Stitis Facility:[facility] Start: 09-16-2023 End: 09-17-2023 ambulatory Urvashi Rawls MD Facility:[facility] Start: 08-27-2023 End: 08-27-2023 ambulatory [facility] Start: 07-09-2023 End: 07-09-2023 ambulatory [facility] Start: 06-24-2023 End: 06-25-2023 ambulatory Urvashi Stitis Facility:[facility] Start: 06-10-2023 End: 06-11-2023 ambulatory Urvashi Stitis Facility:[facility] Start: 05-27-2023 End: 05-28-2023 ambulatory Urvashi Rawls MD Facility: [facility] Start: 05-13-2023 End: 05-13-2023 ambulatory [facility] Start: 05-08-2023 ambulatory [place] Start: 04-09-2023 End: 04-09-2023 ambulatory [facility] Start: 03-29-2023 End: 03-30-2023 ambulatory [facility] Start: 03-26-2023 End: 03-27-2023 ambulatory [facility] Start: 03-26-2023 End: 03-26-2023 ambulatory [facility] Start: 03-15-2023 End: 03-16-2023 ambulatory [facility] Start: 02-27-2023 End: 02-28-2023 ambulatory ELLIOT Maximino [facility] Start: 01-16-2023 End: 01-16-[address] ELLIOT CHESTER . Facility: Start: 12-27-[address] ELLIOT CHESTER . [...] Start: 03-22-2022 End: 03-23-2022 ambulatory MODESTO BECERRA [facility] Start: 03-20-2022 End: 03-21-[address] ELLIOT CHESTER . Facility:[facility] Start: 03-13-2022 End: 03-15-2022 Evaluation and management of inpatient DR ELLIOT CHESTER . Facility:[facility] Start: 01-25-2022 End: 01-25-2022 ambulatory GAGANDEEP PAREDES Facility: Payers Date Payer Category Payer Medicare 2022 Unknown 1961 Medicare [id number] 1961 Self-pay 1959 Unknown [id number] 1950 Unknown [id number] 2.16.8 [id number] 1950 Unknown [id number] 2.16.84 0.1.625905.3.579.2.593 1950 Unknown [id number] 2.16.84 0.1.309561.3.579.2.593 1948 Unknown [id number] 2.16.84 0.1.815861.3.579.2.593 1948 Unknown [id number] 2.16.84 0.1.293199.3.579.2.593 1948 Unknown [id number] 2.16.84 0.1.273910.3.579.2.593 1948 Unknown [id number] 2.16.84 0.1.801707.3.579.2.593 1948 Unknown [id number] 2.16.84 0.1.872931.3.579.2.593 1948 Unknown [id number] 2.16.84 0.1.525286.3.579.2.593 1948 Unknown [id number] 2.16.84 0.1.777443.3.579.2.593 1948 Unknown [id number] 2.16.84 0.1.726870.3.579.2.593 1948 Unknown [id number] 2.16.84 0.1.032149.3.579.2.593 1948 Unknown [id number] 2.16.84 0.1.884808.3.579.2.593 1948 Unknown [id number] 2.16.84 0.1.375198.3.579.2.593 1948 Unknown [id number] 2.16. 840.1.958060.3.579.2.196 1948 Unknown [id number] 2.16. 840.1.409467.3.579.2. 1948 Unknown [id number] 2.16. 840.1.824432.3.579.2.196 1948 Unknown [id number] 2.16. 840.1.606230.3.579.2. 1948 Unknown [id number] 2.16. 840.1.148157.3.579.2.196 1948 Unknown [id number] 2.16. 840.1.838645.3.579.2.196 1948 Unknown [id number] 2.16. 840.1.822170.3.579.2.196 Progress note 01-31-2024 Note Date & Type [...] Says he's not taking atorvastatin because his filling carrier told him it was not good for his kidneys. Review of Systems Constitutional: Positive for malaise/fatigue. Cardiovascular: Positive for claudication. Musculoskeletal: Positive for arthritis, back pain, joint pain, muscle weakness and myalgias. All other systems reviewed and are negative. [facility] Progress note 08-27-2023 Note Date & [...] $70 for a 30 day supply at [facility]. Lipid profile was done in May 2023. [facility] Progress note 08-27-2023 Note Date & Type Note Facility 08-27-2023 Note [place] [facility] Note [facility] Reason for visit: follow up for [...] was initiated by the patient and conducted etu-flcq-rk-face with use of audio-only real time telephone [...] since his prost (more content not included)... [facility] Progress note 05-13-2023 Note Date & Type Note Facility 05-13-2023 Note [place] Cardiology Note [facility] Reason for visit: lower extremity claudication [...] was initiated by the patient and conducted myb-nggp-xw-face with use of audio-only real time telephone [...] night many times (more content not included)... [facility] Progress note 05-13-2023 Note Date & Type Note Facility 05-13-2023 Note Patient here c/o LE numbness and pain during ambulation and standing. He had EMG and SAGAR's in March 2023. He sees Dr. Chester this afternoon. [facility] Quinonez started him on low dose aspirin and atorvastatin last week, which he states he has not started yet. He denies chest pain, SOB, and syncope. Review of Systems Constitutional: Positive for malaise/fatigue. Cardiovascular: Positive for claudication and leg swelling. Musculoskeletal: Positive for arthritis, back pain, muscle weakness and myalgias. All other systems reviewed and are negative. [facility] Progress note 05-08-2023 Note Date & [...] will see him in about 3 months. [facility] Progress note 05-08-2023 Note Date & [...] being on aspirin (more content not included)... 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 He undertook some type of decompressive [...] Final Atrial Rate 03/22/2022 76 BPM Final DE Interval 03/22/2022 162 ms Final QRS DURATION 03/22/2022 144 ms Final QT Interval 03/22/2022 392 ms Final QTC CALCULATION(BAZETT) 03/22/2022 441 ms Final P [place] 03/22/2022 -14 degrees Final R-[place] 03/22/2022 -20 degrees Final T Wave [place] 03/22/2022 -6 degrees Final Diagnosis 03/22/2022 Final [...] No definite e (more content not included)... 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 He undertook some type of decompressive [...] Value Ref Range (more content not included)... [facility] Clinical Note 03-23-2022 Note Date & [...] authenticated by: ALONSO MASON Date: 2022-03-23 12:58 [facility] Summary Purpose Family History No Family [...] section and content) DATE CREATED AUTHOR 01/29/2022 [facility] DATE CREATED AUTHOR AUTHOR'S ORGANIZ ATION 04/23/2022 [facility] DATE CREATED AUTHOR AUTHOR'S ORGANIZ ATION 01/18/2023 [facility] DATE CREATED AUTHOR AUTHOR'S ORGANIZ ATION 02/27/2024 [facility] DATE CREATED AUTHOR AUTHOR'S ORGANIZ ATION 03/05/2024 [facility] FOR RECORDS PERTAINING TO PATIENTS WHO [...] BE BASED ON THE PRIMARY CLINICAL RECORDS. [facility]. provides no warranty or guarantee of the accuracy or completeness of information in this document.
--- NOTE | 2024-03-07 10:08 | ECG_ITS ---
[facility] Test Date: 2024-03-07 Pat Name: MOUSTAPHA MAC Department: Room: - Gender: Male [employer] Representative: : [id number] Requested By: ELLIOT DECKER Order Number: [id number] Reading MD: ELLIOT DECKER Measurements Intervals [place] Rate: 95 P: 26 WA: 166 QRS: 30 QRSD: 130 T: 62 QT: 354 QTc: 406 Interpretive Statements 1100 Sinus rhythm 2450 Right bundle branch block 9150 abnormal ECG Compared to ECG 03/12/2022 12:20:23 Sinus tachycardia no longer present Electronically Signed On 03-08-2024 7:11:59 EDT by ELLIOT DECKER
--- NOTE | 2024-03-07 10:08 | CT_ITS ---
[address] [address] Patient Name: MOUSTAPHA MAC MRN: [id number] date: 1950 Sex: M Assigned Patient Location: ER Current Patient Location: Accession/Order Number: [id number] Exam Date: 03/07/2024 11:23 Report Date: 03/07/2024 12:16 At the request of: ELLE CONNORS Procedure: CT angio chest EXAM: CT angio chest HISTORY: pe COMPARISON: 03/12/2022 TECHNIQUE: CT chest with intravenous contrast was performed with timing for the evaluation for pulmonary arteries. Multiplanar reformats were performed. MIP (maximum intensity projection) images or 3D post processing was performed. Dose reduction techniques were achieved by using automated exposure control and/or adjustment of mA and/or kV according to patient size and/or use of iterative reconstruction technique. FINDINGS: Lungs: No pneumothorax, or effusion. There are bilateral patchy tree-in-bud opacities and right basilar consolation, representing aspiration pneumonia and/or acute bronchiolitis. There are bilateral perihilar and lower lobes peribronchial thickening, represent bronchitis. Airways: Normal. Mediastinum: There are right paratracheal, AP window, subcarinal and bilateral, right greater than left hilar lymph nodes measuring up to 1.3 cm in short axis dimension, nonspecific and likely reactive. Aorta: No aneurysm. Cardiac: Normal size. No pericardial effusion. Pulmonary vasculature: Diagnostic opacification of pulmonary arteries without evidence of pulmonary embolus. Normal morphology. Bones: No acute bony abnormality. Axilla: No adenopathy. Thyroid gland: No abnormality demonstrated on provided imaging. Soft tissues: Unremarkable. Upper abdomen: Unremarkable. Additional findings: None. CT/CT angio chest IMPRESSION: No evidence of pulmonary embolus. Bilateral patchy tree-in-bud opacities and right basilar consolation, representing aspiration pneumonia and/or acute bronchiolitis. There are bilateral perihilar and lower lobes peribronchial thickening, represent bronchitis. right paratracheal, AP window, subcarinal and bilateral, right greater than left hilar lymph nodes measuring up to 1.3 cm in short axis dimension, nonspecific and likely reactive. Electronically authenticated by: JAMMIE BOYD Date: 03/07/2024 12:16
--- NOTE | 2024-03-07 10:10 | ED.GENADUL1 ---
HPI HPI - General Adult General Chief complaint: Shortness of Breath/Dyspnea Stated complaint: SOB, LOW OXYGEN LEVELS Time Seen by Provider: 03/07/24 10:07 Source: patient Mode of arrival: walk-in Limitations: no limitations History of Present Illness HPI narrative: Patient is a 73-year-old male who is presenting to the ER today with chief complaint of Shortness of breath, cough, difficulty breathing. Patient called his PCP, Dr. Chester yesterday, and he was placed on cefdinir. Patient has a long-standing history of smoking, patient has smoked for approximately 50 years, pack-a-day. Patient quit smoking last year. Patient has not been diagnosed with asthma, emphysema or chronic obstructive pulmonary disease yet. Patient were nose action at home. Patient was a home with a significant other. Patient was brought to Emergency Room by his significant other's daughter. No dental pain nausea vomiting. No chest pain or tightness. Patient feels that he is breathing faster, having a hard time catching his breath. Patient presented hypoxic. Patient has no recent traveling. 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 No exposure inhalation to chemicals. No other acute complaints. All systems are negative except as noted/marked. All systems reviewed and otherwise negative. Nurses note and vital signs reviewed and patient is hypoxic.Patient was placed on nasal cannula General: The patient appears Mild respiratory distress, increased respiratory rate. Patient is resting uncomfortably on cart. Patient is not toxic, lethargic, or listless. Patient is very pleasant To speak to. Skin: Warm, dry, no pallor noted. There is no rash noted. No petechiae, purpura. Head: Normocephalic, atraumatic Eye: Normal conjunctiva, no drainage, EOMI. PERRL Ears, Nose, Mouth, and Throat: oral mucosa is moist. Nares patent. Mouth without vesicles. Cardiovascular: Regular Rate and Rhythm, no murmur, gallop, rub Respiratory: Patient is Mild respiratory distress with increased respiratory rate,, no accessory muscle use, lungs are Decreased bilateral, faint wheezing bilateral, mild congestion to upper lobes bilateral. Mild rhonchi/crackles to the left lower base. Back: non-tender, no CVA tenderness bilaterally to percussion. No CT LS midline pain GI: Obese,no tenderness to palpation, no masses appreciated. No rebound, guarding, or rigidity noted. No distention Musculoskeletal: Patient has full range of motion of all of the extremities, no motor, sensory, or focal neurological deficits. No pulmonary edema. Neurological: A&O x4, normal speech Psychiatric: Cooperative Related Data Home Medications ?Medication ?Instructions ?Recorded ?Confirmed amlodipine 5 mg tablet 5 mg PO .QD 05/27/23 03/07/24 gabapentin 100 mg capsule 100 mg PO BID 05/27/23 03/07/24 tizanidine 4 mg tablet 8 mg PO .HS 05/27/23 03/07/24 cefdinir 300 mg capsule 600 mg PO DAILY 03/07/24 03/07/24 gabapentin 300 mg capsule 300 mg PO .qhs 03/07/24 03/07/24 Allergies Allergy/AdvReac Type Severity Reaction Status Date / Time Z PACK Allergy Uncoded 03/02/24 08:27 Opioid HPI Opioid Management Most Recent Opioid Data: Last Pain Scale 3 03/02/24 08:21 Last Pain Assessment 03/07/24 19:00 Last ORT Total Score 0 03/07/24 12:50 Last ORT Risk Category Low Risk 03/07/24 12:50 PFSH PFSH Medical History (Updated 03/07/24 @ 13:29 by Danica Chowdary) Low back pain ?M54.50 - Low back pain, unspecified (ICD-10) Glaucoma ?H40.9 - Unspecified glaucoma (ICD-10) H/O prostate cancer ?Z85.46 - Personal history of malignant neoplasm of prostate (ICD-10) Numbness and tingling ?R20.0 - Anesthesia of skin (ICD-10) ?R20.2 - Paresthesia of skin (ICD-10) Former smoker ?Z87.891 - Personal history of nicotine dependence (ICD-10) Irregular heart beat ?I49.9 - Cardiac arrhythmia, unspecified (ICD-10) Hypertension ?I10 - Essential (primary) hypertension (ICD-10) Surgical History (Updated 03/07/24 @ 13:29 by Danica Chowdary) Pacemaker ?Z95.0 - Presence of cardiac pacemaker (ICD-10) H/O lumbosacral spine surgery ?Z98.890 - Other specified postprocedural states (ICD-10) History of appendectomy ?Z90.49 - Acquired absence of other specified parts of digestive tract (ICD-10) Family History (Updated 03/07/24 @ 13:30 by Danica Chowdary) Mother Family history of cancer Family history of hypertension Sister Family history of cancer Family history of myocardial infarction Social History (Updated 03/07/24 @ 13:32 by Danica Chowdary) Within the past year, how often did you have a drink containing alcohol: never Within the past year, how often did you have six or more drinks on one occasion: never Score interpretation: A score less than 4 is consistent with normal alcohol consumption. Smoking status: Former smoker Non-prescribed substance use: denies use Previous occupational history: retired Highest level of school completed/degree received: high school graduate Are you now , , , , never or living with a partner: living with partner Little interest or pleasure in doing things: not at all Feeling down, depressed, or hopeless: not at all Feel stressed/tense/nervous/anxious/difficulty sleeping: only a little Exam Constitutional Vital Signs, click to edit/add: Last Vital Signs Temp 99.8 F 03/07/24 14:53 Pulse 98 H 03/07/24 20:00 Resp 22 H 03/07/24 14:53 BP 126/73 03/07/24 14:53 Pulse Ox 90 L 03/07/24 17:09 O2 Del Method Nasal Cannula 03/07/24 17:09 O2 Flow Rate 5 03/07/24 17:09 Course Vital Signs Vital signs: Vital Signs Pulse Oximetry 84 L 03/07/24 09:50 Temperature 99.8 F 03/07/24 14:53 Pulse Rate 98 H 03/07/24 20:00 Respiratory Rate 22 H 03/07/24 14:53 Blood Pressure 126/73 03/07/24 14:53 Pulse Oximetry 90 L 03/07/24 17:09 Oxygen Delivery Method Nasal Cannula 03/07/24 17:09 Oxygen Delivery Flow Rate 5 03/07/24 17:09 Medical Decision Making MDM Narrative Medical decision making narrative: Patient had EKG, lab work, and a CT of the chest to rule out PE, pneumonia, or other acute findings. Patient has responded with IV fluids, nasal cannula oxygen. Patient CTA shows no PE, no significant signs of pneumonia, bronchiolitis noted. Patient was seen and evaluated in the Emergency Room by Dr. Chester. Is recommended by Dr. Chester, Will start patient on Zosyn. Patient will be admitted for further evaluation and testing. Patient is hypoxic, patient is on nasal cannula. Lab Data Lab results reviewed: Yes I reviewed the patient's lab results Labs: Lab Results 03/07/24 03/07/24 03/07/24 Range/Units 10:06 10:08 10:29 WBC 15.7 H (4.0-11.0) 10^3/uL RBC 4.97 (4.70-6.10) 10^6/uL Hgb 14.6 (14.0-18.0) g/dL Hct 46.3 (42.0-54.0) % MCV 93.2 (80.0-94.0) fL MCH 29.4 (25.9-34.0) pg MCHC 31.5 (29.9-35.2) g/dL RDW 13.5 (11.0-15.0) % Plt Count 167 (150-450) 10^3/uL MPV 10.3 (9.5-13.5) fL Neut % (Auto) 80.9 H (43.0-75.0) % Lymph % (Auto) 7.5 L (20.5-60.0) % Sanders % (Auto) 10.7 (1.7-12.0) % Eos % (Auto) 0.1 L (0.9-7.0) % Baso % (Auto) 0.1 L (0.2-2.0) % Neut # (Auto) 12.7 H (1.4-6.5) 10^3/uL Lymph # (Auto) 1.2 (1.2-3.8) 10^3/uL Sanders # (Auto) 1.7 H (0.3-0.8) 10^3/uL Eos # (Auto) 0.0 (0.0-0.7) 10^3/uL Baso # (Auto) 0.0 (0.0-0.1) 10^3/uL Abs Immat Gran (auto) 0.11 H (0.00-0.03) 10^3/uL Imm/Tot Granulo (auto) 0.7 H (0.0-0.5) % PT 11.0 (9.0-11.6) sec INR 1.04 APTT 35.1 (22.3-36.2) sec Puncture Site R radial ABG pH 7.346 L (7.350-7.450) ABG pCO2 46.4 H (35.0-45.0) mmHg ABG pO2 74.5 L (80.0-100.0) mmHg ABG HCO3 25.4 (22.0-26.0) mmol/L ABG O2 Saturation 95.6 % ABG Base Excess -0.3 (-2.0-2.0) mmol/L Benito Test Positive (POSITIVE) O2 Liters/Min 5 Sodium 138 (136-145) mmol/L Potassium 4.8 (3.5-5.1) mmol/L Chloride 101 (98-107) mmol/L Carbon Dioxide 25.2 (21.0-32.0) mmol/L Anion Gap 16.6 BUN 25.0 H (7.0-18.0) mg/dL Creatinine 1.75 H (0.70-1.30) mg/dL Est GFR ( Amer) 46 L (>=60) Est GFR (Non-Af Amer) 38 L (>=60) BUN/Creatinine Ratio 14.3 Glucose 114 H (74-106) mg/dL Lactate 1.4 (0.4-2.0) mmol/L Calcium 8.9 (8.5-10.1) mg/dL Magnesium 2.3 (1.8-2.4) mg/dL Total Bilirubin 1.1 H (0.2-1.0) mg/dL AST 16 (15-37) U/L ALT 16 (16-63) U/L Alkaline Phosphatase 66 (46-116) U/L Troponin I High Sens 21.3 (4.0-76.1) pg/mL NT-Pro-B Natriuret Pep 1072.0 (<=1800.0) pg/mL Total Protein 6.9 (6.4-8.2) g/dL Albumin 2.8 L (3.4-5.0) g/dL Globulin 4.1 g/dL Albumin/Globulin Ratio 0.7 Procalcitonin 1.23 H (0.00-0.50) ng/mL Influenza Type A Ag Negative Influenza Type B Ag Negative SARS-CoV-2 Ag (CV2AG) Negative (NEGATIVE) 03/07/24 Range/Units 12:35 WBC (4.0-11.0) 10^3/uL RBC (4.70-6.10) 10^6/uL Hgb (14.0-18.0) g/dL Hct (42.0-54.0) % MCV (80.0-94.0) fL MCH (25.9-34.0) pg MCHC (29.9-35.2) g/dL RDW (11.0-15.0) % Plt Count (150-450) 10^3/uL MPV (9.5-13.5) fL Neut % (Auto) (43.0-75.0) % Lymph % (Auto) (20.5-60.0) % Sanders % (Auto) (1.7-12.0) % Eos % (Auto) (0.9-7.0) % Baso % (Auto) (0.2-2.0) % Neut # (Auto) (1.4-6.5) 10^3/uL Lymph # (Auto) (1.2-3.8) 10^3/uL Sanders # (Auto) (0.3-0.8) 10^3/uL Eos # (Auto) (0.0-0.7) 10^3/uL Baso # (Auto) (0.0-0.1) 10^3/uL Abs Immat Gran (auto) (0.00-0.03) 10^3/uL Imm/Tot Granulo (auto) (0.0-0.5) % PT (9.0-11.6) sec INR APTT (22.3-36.2) sec Puncture Site ABG pH (7.350-7.450) ABG pCO2 (35.0-45.0) mmHg ABG pO2 (80.0-100.0) mmHg ABG HCO3 (22.0-26.0) mmol/L ABG O2 Saturation % ABG Base Excess (-2.0-2.0) mmol/L Benito Test (POSITIVE) O2 Liters/Min Sodium (136-145) mmol/L Potassium (3.5-5.1) mmol/L Chloride (98-107) mmol/L Carbon Dioxide (21.0-32.0) mmol/L Anion Gap BUN (7.0-18.0) mg/dL Creatinine (0.70-1.30) mg/dL Est GFR ( Amer) (>=60) Est GFR (Non-Af Amer) (>=60) BUN/Creatinine Ratio Glucose (74-106) mg/dL Lactate 2.4 H* (0.4-2.0) mmol/L Calcium (8.5-10.1) mg/dL Magnesium (1.8-2.4) mg/dL Total Bilirubin (0.2-1.0) mg/dL AST (15-37) U/L ALT (16-63) U/L Alkaline Phosphatase (46-116) U/L Troponin I High Sens (4.0-76.1) pg/mL NT-Pro-B Natriuret Pep (<=1800.0) pg/mL Total Protein (6.4-8.2) g/dL Albumin (3.4-5.0) g/dL Globulin g/dL Albumin/Globulin Ratio Procalcitonin (0.00-0.50) ng/mL Influenza Type A Ag Influenza Type B Ag SARS-CoV-2 Ag (CV2AG) (NEGATIVE) Imaging Data CT scan - pelvis: Radiologist's impression: ITS Impressions Chest CTA 03/07/24 10:08 IMPRESSION: No evidence of pulmonary embolus. Bilateral patchy tree-in-bud opacities and right basilar consolation, representing aspiration pneumonia and/or acute bronchiolitis. There are bilateral perihilar and lower lobes peribronchial thickening, represent bronchitis. right paratracheal, AP window, subcarinal and bilateral, right greater than left hilar lymph nodes measuring up to 1.3 cm in short axis dimension, nonspecific and likely reactive. Electronically authenticated by: JAMMIE BOYD Date: 03/07/2024 12:16 ECG Data Attestation: I personally reviewed and interpreted this ECG as follows: (EKG interpretation. Normal sinus rhythm at 95 beats a minute. Normal axis deviation. No acute ST elevation, no acute ectopy. Artifact noted. Right bundle branch block noted. QTc of 406.) Discharge Plan Discharge Chief Complaint: Shortness of Breath/Dyspnea Clinical Impression: Bronchiolitis, Cough, Hypoxia Patient Disposition: Admitted As Inpatient Time of Disposition Decision: 12:59 Condition: Serious Discharge Date/Time: 03/07/24 12:38
[2024-03-07 10:23] LABS: Basophils Percent Auto 0.1 % (0.2-2.0); Eosinophils Percent Auto 0.1 % (0.9-7.0); Hematocrit 46.3 % (42.0-54.0); Hemoglobin 14.6 g/dL (14.0-18.0); Immature Granulocytes Abs Auto 0.11 10^3/uL (0.00-0.03); Immature Granulocytes Pct Auto 0.7 % (0.0-0.5); Lymphocytes Absolute Auto 1.2 10^3/uL (1.2-3.8); Lymphocytes Percent Auto 7.5 % (20.5-60.0); Mean Corpuscular HGB Conc 31.5 g/dL (29.9-35.2); Mean Corpuscular Hemoglobin 29.4 pg (25.9-34.0); Mean Corpuscular Volume 93.2 fL (80.0-94.0); Mean Platelet Volume 10.3 fL (9.5-13.5); Monocytes Absolute Auto 1.7 10^3/uL (0.3-0.8); Monocytes Percent Auto 10.7 % (1.7-12.0); Neutrophils Absolute Auto 12.7 10^3/uL (1.4-6.5); Neutrophils Percent Auto 80.9 % (43.0-75.0); Platelet Count 167 10^3/uL (150-450); Red Blood Count 4.97 10^6/uL (4.70-6.10); Red Cell Distribution Width 13.5 % (11.0-15.0); White Blood Count 15.7 10^3/uL (4.0-11.0)
[2024-03-07 10:37] LABS: ABG PCO2 46.4 mmHg (35.0-45.0); HCO3 ABG 25.4 mmol/L (22.0-26.0); PO2 ABG 74.5 mmHg (80.0-100.0); pH ABG 7.346 (7.350-7.450)
[2024-03-07 10:38] LABS: Allen Test POSITIVE (POSITIVE); Base Excess ABG -0.3 mmol/L (-2.0-2.0); Liters per Minute 5; O2 Mode NASAL CANNULA; Oxygen Saturation ABG 95.6 %; Puncture Site R RADIAL
[2024-03-07 10:42] LABS: Influenza Virus A Antigen Negative; Influenza Virus B Antigen Negative; Internal Control Within Normal Limits; SARS-CoV-2 Ag NEGATIVE (NEGATIVE)
[2024-03-07 10:50] LABS: INR 1.04; Partial Thromboplastin Time 35.1 sec (22.3-36.2)
[2024-03-07 10:52] LABS: Lactate/Lactic Acid 1.4 mmol/L (0.4-2.0)
[2024-03-07 10:55] LABS: Magnesium 2.3 mg/dL (1.8-2.4); Troponin I High Sensitivity 21.3 pg/mL (4.0-76.1)
[2024-03-07 10:56] LABS: Alanine Aminotransferase 16 U/L (16-63); Albumin Globulin Ratio 0.7; Albumin Level 2.8 g/dL (3.4-5.0); Alkaline Phosphatase 66 U/L (46-116); Anion Gap 16.6; Aspartate Amino Transferase 16 U/L (15-37); BUN Creatinine Ratio 14.3; Bilirubin Total 1.1 mg/dL (0.2-1.0); Calcium 8.9 mg/dL (8.5-10.1); Carbon Dioxide 25.2 mmol/L (21.0-32.0); Chloride 101 mmol/L (98-107); Estimated GFR (African America 46 (>=60); Estimated GFR (Non-African Ame 38 (>=60); Globulin 4.1 g/dL; Glucose 114 mg/dL (74-106); Potassium 4.8 mmol/L (3.5-5.1); Sodium 138 mmol/L (136-145); Total Protein 6.9 g/dL (6.4-8.2)
[2024-03-07] MEDS: IPRATROPIUM/ALBUTEROL SULFATE 3 ML AMPUL.NEB 6 ML IH (10:59)
[2024-03-07 11:02] LABS: PROCALCITONIN 1.23 ng/mL (0.00-0.50)
[2024-03-07] MEDS: PIPERACILLIN SODIUM/TAZOBACTAM 3.375 GM in 0.9 % SODIUM CHLORIDE 50 ML IV ×2 (11:59→20:37)
--- NOTE | 2024-03-07 12:08 | P.HP_ITS ---
HPI H&P: HPI History of Present Illness Chief complaint: SOB, LOW OXYGEN LEVELS Narrative: Patient called the office yesterday with increasing cough and shortness of breath. Placed patient on cefdinir. This morning woke up and O2 saturations were around 80% with his home monitor. Upon presentation the emergency room this was confirmed with an O2 saturation of 81% on room air. Placed on supplemental oxygen and did require up to 6 L at 1 point now down to 5 L to keep his O2 saturation greater than 90%. CTA completed in ER showed no pulmonary embolism but right sided pneumonia. When I saw the patient in the emergency room, he deftly has some conversational dyspnea different than his baseline. Increasing cough. With moderate sputum production. No fevers. With the degree of hypoxia he is admitted for inpatient treatment. Opioid HPI Opioid Management Most Recent Opioid Data: Last Pain Scale 3 03/02/24 08:21 Review of Systems ROS Status of ROS 10 or more systems reviewed and unremark able except as noted in history and below [facility] Low back pain ?M54.50 - Low back pain, unspecified (ICD-10) Glaucoma ?H40.9 - Unspecified glaucoma (ICD-10) H/O prostate cancer ?Z85.46 - Personal history of malignant neoplasm of prostate (ICD-10) Numbness and tingling ?R20.0 - Anesthesia of skin (ICD-10) ?R20.2 - Paresthesia of skin (ICD-10) Former smoker ?Z87.891 - Personal history of nicotine dependence (ICD-10) Irregular heart beat ?I49.9 - Cardiac arrhythmia, unspecified (ICD-10) Hypertension ?I10 - Essential (primary) hypertension (ICD-10) Pacemaker ?Z95.0 - Presence of cardiac pacemaker (ICD-10) Surgical History H/O lumbosacral spine surgery ?Z98.890 - Other specified postprocedural states (ICD-10) History of appendectomy ?Z90.49 - Acquired absence of other specified parts of digestive tract (ICD-1 0) Meds Home Medications and Allergies Home Medications ?Medication ?Instructions ?Recorded ?Confirmed ?Type amlodipine 5 mg tablet 5 mg PO .QD 05/27/23 03/07/24 History gabapentin 100 mg capsule 100 mg PO BID 05/27/23 03/07/24 History tizanidine 4 mg tablet 8 mg PO .HS 05/27/23 03/07/24 History cefdinir 300 mg capsule 600 mg PO DAILY 03/07/24 03/07/24 History gabapentin 300 mg capsule 300 mg PO .qhs 03/07/24 03/07/24 History Allergies Allergy/AdvReac Type Severity Reaction Status Date / Time Z PACK Allergy Uncoded 03/02/24 08:27 Exam Constitutional Vital Signs, click to edit/add: Last Vital Signs Temp 98.4 F 03/07/24 09:55 Pulse 94 H 03/07/24 10:40 Resp 87 H 03/07/24 10:59 BP 132/67 03/07/24 11:00 Pulse Ox 96 03/07/24 11:31 O2 Del Method Room Air 03/07/24 11:31 O2 Flow Rate 5 03/07/24 11:31 Documenting provider has reviewed patient's vital signs: yes Common normals: apparent distress (Moderate respiratory Distress) Exam limitations: no altered mental status Chest Common normals: inspection of chest normal Respiratory Common normals: no retractions, no use of accessory muscles and clear to auscultation bilaterally; abnormal respiratory effort (Moderate respiratory distress with moderate conversational dyspnea) Auscultation: rhonchi (Right-sided with egophony) Cardio Common normals: regular rate, regular rhythm and no murmurs GI Common normals: Normal to inspection, nondistended, normoactive bowel sounds present Neuro Common normals: oriented x3, CN's II-XII intact bilaterally and moves all extremities Results Labs Labs: Short CBC 03/07/24 Range/Units 10:06 WBC 15.7 H (4.0-11.0) 10^3/uL Hgb 14.6 (14.0-18.0) g/dL Hct 46.3 (42.0-54.0) % Plt Count 167 (150-450) 10^3/uL BMP 03/07/24 10:06 Sodium 138 Potassium 4.8 Chloride 101 Carbon Dioxide 25.2 BUN 25.0 H Creatinine 1.75 H Glucose 114 H Calcium 8.9 Liver Function 03/07/24 Range/Units 10:06 Total Bilirubin 1.1 H (0.2-1.0) mg/dL AST 16 (15-37) U/L ALT 16 (16-63) U/L Alkaline Phosphatase 66 (46-116) U/L Albumin 2.8 L (3.4-5.0) g/dL ABG ABG results: 03/07/24 10:29 ABG pH 7.346 L ABG pCO2 46.4 H ABG pO2 74.5 L ABG HCO3 25.4 ABG O2 Saturation 95.6 ABG Base Excess -0.3 Assessment and Plan Assessment and Plan (1) Community acquired pneumonia: Plan Respiratory distress, severe hypoxia with O2 saturation of 81% on room air, l eukocytosis secondary to right-sided pneumonia which has resulted in severe sepsis.. Possible aspiration based on pattern. Will choose Zosyn for more aspiration coverage but add Zithromax for atypical coverage. Steroids he does have probably underlying COPD. Aerosol treatments frequently. Did not give aggressive fluid treatment as BNP is elevated compared to his baseline. Baseline has been around 100, today it is over thousand , we will give gentle hydration. Does have slight elevation in his BUN and creatinine-possible mild acute kidney injury based on the above. Monitor daily. Low back pain-continue his home medications Admission status: Patient was started on outpatient antibiotics. Patient deteriorated overnight. With failed outpatient treatment, severe hypoxia on admission, sepsis, medically necessary treatment will span [address] patient in inpatient status
--- OUTSIDE RECORDS SUMMARY | 2024-03-07 12:44 | XMS_ITS | CCD ---
Author Organization [facility] Care Team Providers Care Balance Staff Inspector Name Role Phone MODESTO BECERRA Admitting Unavailable [...] Azithromycin; Translations: [AZITHROMYCIN] Drug Allergy 03-22-2022 [facility] Repository (2 sources) Azithromycin Drug Allergy 03-03-2015 [facility] Repository (1 source) Ciprofloxacin Drug Allergy 12-18-2022 [facility] Repository Problems Active Problems Problem Classification [...] Other snf (current) drug therapy; Translations: [OTH ALF CURRENT DRUG THERAPY] Onset: 03-19-2022 Episodic Pneumonia [...] Range Facility Office Visiton 08-27-2023 Follow-up visit [id number] Wayne Oneal 1950 M Date Provider Department Center 08/27/2023 MAJOR ALMEIDA Family History Problem Relation Age of Onset Coronary artery disease Mother Family Status - Relation Status Age at Mother Level of Service:02947 CO OFFICE/OUTPATIENT ESTABLISHED LOW MDM 20-29 MIN Normal [facility] Office Visiton 05-13-2023 Follow-up visit [id number] Wayne Oneal 1950 M Date Provider Department Center 05/13/2023 [facility] Family History Problem Relation Age of Onset Coronary artery disease Mother Family Status - Relation Status Age at Mother Level of Service:75222 CO OFFICE/OUTPATIENT ESTABLISHED MOD MDM 30-39 MIN [facility] Orders Onlyon 05-13-2023 Orders Only [id number] Wayne Oneal A 1950 M Date Provider Department Center 05/13/2023 BRAYAN AGUDELO CARD [facility] Family History Problem Relation Age of Onset Coronary artery disease Mother Family Status - Relation Status Age at Mother [facility] 29on 05-08-2023 29 Addended by: LEANA HENNING on: 05/09/2023 01:46 PM Modules accepted: Orders [facility] Consulton 05-08-2023 Consult [id number] Wayne Oneal A 1950 M Date Provider Department Center 05/08/2023 384-JOSE QUINONEZ [facility] Family History Problem Relation Age of Onset Coronary artery disease Mother Family Status - Relation Status Age at Mother Level of Service:38886 CO OFFICE/OUTPATIENT NEW MODERATE MDM 45-59 MINUTES Reason for Visit and Comments: New Patient [632] - Numbness in bilateral legs [facility] Follow-Upon 04-09-2023 Follow-Up [id number] Wayne Oneal A 1950 M Date Provider Department Center 04/09/2023 RADU QUEVEDO [facility] [place] Family History Problem Relation Age of Onset Coronary artery disease Mother Family Status - Relation Status Age at Mother Level of Service:38148 CO OFFICE/OUTPATIENT ESTABLISHED LOW MDM 20-29 MIN Reason for Visit and Comments: Follow-up [237511] - follow up s/p SAGAR, XR; When patient bends over it tends to pull his back muscles and when he gets back up he is in pain. Walking a long distance he is in lots of pain. [facility] 36on 04-02-2023 36 Pt was called and scheduled a follow up with Dr. Renee to review results. [facility] 36 Brian is asking fo r an answer to left lower back pain. Had the US done and is not having any relief in his back. Normal [facility] Telephoneon 04-02-2023 Telephone [id number] Wayne Oneal A 1950 M Date Provider Department Center 04/02/2023 554-TRACI VAZQUEZ [facility] [place] Family History Problem Relation Age of Onset Coronary artery disease Mother Family Status - Relation Status Age at Mother Normal [facility] Consulton 03-26-2023 Consult [id number] Wayne Oneal A 1950 M Date Provider Department Center 03/26/2023 [id number]-RADU RENEE [facility] [place] Family History Problem Relation Age of Onset Coronary artery disease Mother Family Status - Relation Status Age at Mother Level of Service:97402 CO OFFICE/OUTPATIENT NEW MODERATE MDM 45-59 MINUTES Reason for Visit and Comments: Consult [484] - Pt is here for a CO visit for Osteophyte. Normal [facility] MR LUMBAR SPINE W AND WO [...] previous results Electronically signed: Asher Tomlinson. Normal [facility] Comment on above: Order Comment: Order in [facility] Covid-19 PCR (CVDTB)on SARS-CoV-2 (COVID-19) RNA VENESSA+probe Ql (Unsp spec) Not detected Normal NOT DETECTED [facility] Comment on above: Result Comment: When [...] for this test is supported by the Petroleum Analyst of Health and Human Service's declaration that [...] Performed By: #### B MP, BNP #### [facility] [address] [place] [address] Dr. Leni Hamlin INFLUENZA A AND B AGon 01-16 INFLUANEGH SEE BELOW Normal [facility] Comment on above: Result Comment: Nega tive for Flu A protein angiten. Infection due to Flu A cannot be ruled out. Flu A angiten in the sample may be below the detection limit of the test. Performed By: #### C RP #### [facility] [address] [place] [address] Dr. Leni Hamlin INFLUBNEGH SEE BELOW Normal [facility] Comment on above: Result Comment: Nega tive for Flu B protein antigen. Infection due to Flu B cannot be ruled out. Flu B antigen in the sample may be below the detection limit of the test. Performed By: #### C RP #### [facility] [address] [place] [address] Dr. Leni Hamlin INFLUENZA A AG Negative Normal NEGATIVE SEE COMMENT [facility] Comment on above: Performed By: #### C RP #### [facility] [address] [place] [address] Dr. Leni Hamlin INFLUENZA B AG Negative Normal NEGATIVE SEE COMMENT [facility] Comment on above: Performed By: #### C #### [facility] [address] LSPINE WO CONon [...] CIERA HERNÁNDEZ Date: 2022-12-18 15:56 Normal [facility] CBC AUTO DIFFon 10-03-2022 BASO # 0.1 103/ul Normal 0.0-0.1 [facility] Comment on above: Performed By: #### B , BNP #### [facility] [address] [place] [address] Dr. Leni Hamlin Basophils/100 WBC (Bld) 0.5 % Normal 0.2-2.0 [facility] Comment on above: Performed By: #### B MP, BNP #### [facility] [address] [place] [address] Dr. Leni Hamlin EO # 0.3 103/ul Normal 0.0-0.7 [facility] Comment on above: Performed By: #### B MP, BNP #### [facility] [address] [place] [address] Dr. Leni Hamlin Eosinophils/100 WBC (Bld) 2.2 % Normal 0.9-7.0 [facility] Comment on above: Performed By: #### B MP, BNP #### [facility] [address] [place] [address] Dr. Leni Hamlin Erythrocyte distribution width (RBC) [Ratio] 13.3 % Normal 11.0-15.0 [facility] Comment on above: Performed By: #### B MP, BNP #### [facility] [address] [place] [address] Dr. Leni Hamlin Hematocrit (Bld) [Volume fraction] 46.9 % Normal 42.0-54.0 [facility] Comment on above: Performed By: #### B MP, BNP #### [facility] [address] [place] [address] Dr. Leni Hamlin Hemoglobin (Bld) [Mass/Vol] 15.3 g/dL Normal 14.0-18.0 [facility] Comment on above: Performed By: #### B MP, BNP #### [facility] [address] [place] [address] Dr. Leni Hamlin IG # 0.18 10e3/ul Critically high 0.00-0.03 [facility] Comment on above: Performed By: #### B MP, BNP #### [facility] [address] [place] [address] Dr. Leni Hamlin IG % 1.3 % Critically high 0.0-0.5 [facility] Comment on above: Performed By: #### B MP, BNP #### [facility] [address] [address] [address] Leni Hamlin LYMPH # 1.9 103/ul Normal 1.2-3.8 [facility] Comment on above: Performed By: #### B MP, BNP #### [facility] [address] [address] [address] Leni Hamlin Lymphocytes/100 WBC (Bld) 13.6 % Critically low 20.5-60.0 [facility] Comment on above: Performed By: #### B MP, BNP #### [facility] [address] [address] [address] Leni Hamlin MANUAL DIFF REQ NO Normal [facility] Comment on above: Performed By: #### B MP, BNP #### [facility] [address] [place] [address] Dr. Leni Hamlin MCH (RBC) [Entitic mass] 29.2 pg Normal 25.9-34.0 [facility] Comment on above: Performed By: #### B MP, BNP #### [facility] [address] [place] [address] Dr. Leni Hamlin MCHC (RBC) [Mass/Vol] 32.6 g/dL Normal 29.9-35.2 [facility] Comment on above: Performed By: #### B MP, BNP #### [facility] [address] [address] [address] Leni Hamlin MCV (RBC) [Entitic vol] 89.5 fL Normal 80.0-94.0 [facility] Comment on above: Performed By: #### B MP, BNP #### [facility] [address] [place] [address] Dr. Leni Hamlin MONO # 0.9 103/ul Critically high 0.3-0.8 [facility] Comment on above: Performed By: #### B MP, BNP #### [facility] [address] [place] [address] Dr. Leni Hamlin Monocytes/100 WBC (Bld) 6.6 % Normal 1.7-12.0 [facility] Comment on above: Performed By: #### B MP, BNP #### [facility] [address] [place] [address] Dr. Leni Hamlin NEUT # 10.4 103/ul Critically high 1.4-6.5 [facility] Comment on above: Performed By: #### B MP, BNP #### [facility] [address] [place] [address] Dr. Leni Hamlin Neutrophils/100 WBC (Bld) 75.8 % Critically high 43.0-75.0 [facility] Comment on above: Performed By: #### B MP, BNP #### [facility] [address] [place] [address] Dr. Leni Hamlin Platelet mean volume (Bld) [Entitic vol] 10.6 fL Normal 9.5-13.5 [facility] Comment on above: Performed By: #### B MP, BNP #### [facility] [address] [place] [address] Dr. Leni Hamlin PLT 143 103/ul Critically low 150-[address] [facility] Comment on above: Performed By: #### B MP, BNP #### [facility] [address] [place] [address] Dr. Leni Hamlin RBC 5.24 106/ul Normal 4.70-6.10 [facility] Comment on above: Performed By: #### B MP, BNP #### [facility] [address] [place] [address] Dr. Leni Hamlin WBC 13.7 103/ul Critically high 4.0-11.0 [facility] Comment on above: Performed By: #### B MP, BNP #### [facility] [address] [place] [address] Dr. Leni Hamlin CRPon 10-03-2022 CRP 7.6 mg/dL Critically high <=1.0 [facility] Comment on above: Performed By: #### C MP, CRP #### [facility] [address] [place] [address] Dr. Leni Hamlin PROF 14(COMP METB)on 022 Albumin [Mass/Vol] 2.5 g/dL Critically low 3.4-5.0 [facility] Comment on above: Performed By: #### C MP, CRP #### [facility] [address] [address] [address] Leni Hamlin Albumin/Globulin [Mass ratio] 0.7 {ratio} Normal [facility] Comment on above: Performed By: #### C MP, CRP #### [facility] [address] [address] [address] Leni Hamlin ALP [Catalytic activity/Vol] 54 U/L Normal 46-116 [facility] Comment on above: Performed By: #### C MP, CRP #### [facility] [address] [address] [address] Leni Hamlin ALT [Catalytic activity/Vol] 11 U/L Critically low 16-63 [facility] Comment on above: Performed By: #### C MP, CRP #### [facility] [address] [address] [address] Leni Hamlin Anion gap [Moles/Vol] 8.8 mmol/L Normal [facility] Comment on above: Performed By: #### C MP, CRP #### [facility] [address] [address] [address] Leni Hamlin AST [Catalytic activity/Vol] 9 U/L Critically low 15-37 [facility] Comment on above: Performed By: #### C MP, CRP #### [facility] [address] [address] [address] Leni Hamlin Bilirubin [Mass/Vol] 0.3 mg/dL Normal 0.2-1.0 [facility] Comment on above: Performed By: #### C MP, CRP #### [facility] [address] [address] [address] Leni Hamlin Calcium [Mass/Vol] 8.6 mg/dL Normal 8.5-10.1 [facility] Comment on above: Performed By: #### C MP, CRP #### [facility] [address] [address] [address] Leni Hamlin Chloride [Moles/Vol] 103 mmol/L Normal 98-107 [facility] Comment on above: Performed By: #### C MP, CRP #### [facility] [address] [address] [address] Leni Hamlin CO2 [Moles/Vol] 29.2 mmol/L Normal 21.0-32.0 [facility] Comment on above: Performed By: #### C MP, CRP #### [facility] [address] [place] [address] Dr. Leni Hamlin Creatinine [Mass/Vol] 1.20 mg/dL Normal 0.70-1.30 [facility] Comment on above: Performed By: #### C MP, CRP #### [facility] [address] [place] [address] Dr. Leni Hamlin EGFR-AF UGANDAN >60 Normal >=60 [facility] Comment on above: Performed By: #### C MP, CRP #### [facility] [address] [place] [address] Dr. Leni Hamlin EGFR-NON AF UGANDAN 59 mL/min/1.73m2 Critically low >=60 [facility] Comment on above: Performed By: #### C MP, CRP #### [facility] [address] [place] [address] Dr. Leni Hamlin Globulin (S) [Mass/Vol] 3.4 g/dL Normal [facility] Comment on above: Performed By: #### C MP, CRP #### [facility] [address] [place] [address] Dr. Leni Hamlin Glucose [Mass/Vol] 108 mg/dL Critically high 74-106 [facility] Comment on above: Performed By: #### C MP, CRP #### [facility] [address] [place] [address] Dr. Leni Hamlin Potassium [Moles/Vol] 4.0 mmol/L Normal 3.5-5.1 [facility] Comment on above: Performed By: #### C MP, CRP #### [facility] [address] [place] [address] Dr. Leni Hamlin Protein [Mass/Vol] 5.9 g/dL Critically low 6.4-8.2 Th [facility] Comment on above: Performed By: #### C MP, CRP #### [facility] [address] [place] [address] Dr. Leni Hamlin Sodium [Moles/Vol] 137 mmol/L Normal 136-145 [facility] Comment on above: Performed By: #### C MP, CRP #### [facility] [address] [place] [address] Dr. Leni Hamlin Urea nitrogen [Mass/Vol] 15.0 mg/dL Normal 7.0-18.0 [facility] Comment on above: Performed By: #### C MP, CRP #### [facility] [address] [place] [address] Dr. Leni Hamlin Urea nitrogen/Creatinine [Mass ratio] 12.5 mg/mg Normal [facility] Comment on above: Performed By: #### C MP, CRP #### [facility] [address] [place] [address] Dr. Leni Hamlin CBC AUTO DIFFon 10-02-2022 BASO # 0.1 103/ul Normal 0.0-0.1 [facility] Comment on above: Performed By: #### C MP, CRP #### [facility] [address] [place] [address] Dr. Leni Hamlin Basophils/100 WBC (Bld) 0.5 % Normal 0.2-2.0 [facility] Comment on above: Performed By: #### C MP, CRP #### [facility] [address] [place] [address] Dr. Leni Hamlin EO # 0.2 103/ul Normal 0.0-0.7 [facility] Comment on above: Performed By: #### C MP, CRP #### [facility] [address] [place] [address] Dr. Leni Hamlin Eosinophils/100 WBC (Bld) 1.6 % Normal 0.9-7.0 [facility] Comment on above: Performed By: #### C MP, CRP #### [facility] [address] [address] [address] Leni Hamlin Erythrocyte distribution width (RBC) [Ratio] 13.4 % Normal 11.0-15.0 [facility] Comment on above: Performed By: #### C MP, CRP #### [facility] [address] [place] [address] Dr. Leni Hamlin Hematocrit (Bld) [Volume fraction] 46.6 % Normal 42.0-54.0 [facility] Comment on above: Performed By: #### C MP, CRP #### [facility] [address] [place] [address] Dr. Leni Hamlin Hemoglobin (Bld) [Mass/Vol] 15.1 g/dL Normal 14.0-18.0 [facility] Comment on above: Performed By: #### C MP, CRP #### [facility] [address] [place] [address] Dr. Leni Hamlin IG # 0.21 10e3/ul Critically high 0.00-0.03 [facility] Comment on above: Performed By: #### C MP, CRP #### [facility] [address] [place] [address] Dr. Leni Hamlin IG % 1.4 % Critically high 0.0-0.5 [facility] Comment on above: Performed By: #### C MP, CRP #### [facility] [address] [place] [address] Dr. Leni Hamlin LYMPH # 1.9 103/ul Normal 1.2-3.8 [facility] Comment on above: Performed By: #### C MP, CRP #### [facility] [address] [place] [address] Dr. Leni Hamlin Lymphocytes/100 WBC (Bld) 12.4 % Critically low 20.5-60.0 [facility] Comment on above: Performed By: #### C MP, CRP #### [facility] [address] [place] [address] Dr. Leni Hamlin MANUAL DIFF REQ NO Normal [facility] Comment on above: Performed By: #### C MP, CRP #### [facility] [address] [address] [address] Leni Hamlin MCH (RBC) [Entitic mass] 28.9 pg Normal 25.9-34.0 [facility] Comment on above: Performed By: #### C MP, CRP #### [facility] [address] [place] [address] Dr. Leni Hamlin MCHC (RBC) [Mass/Vol] 32.4 g/dL Normal 29.9-35.2 [facility] Comment on above: Performed By: #### C MP, CRP #### [facility] [address] [place] [address] Dr. Leni Hamlin MCV (RBC) [Entitic vol] 89.3 fL Normal 80.0-94.0 [facility] Comment on above: Performed By: #### C MP, CRP #### [facility] [address] [place] [address] Dr. Leni Hamlin MONO # 1.1 103/ul Critically high 0.3-0.8 [facility] Comment on above: Performed By: #### C MP, CRP #### [facility] [address] [place] [address] Dr. Leni Hamlin Monocytes/100 WBC (Bld) 6.9 % Normal 1.7-12.0 [facility] Comment on above: Performed By: #### C MP, CRP #### [facility] [address] [place] [address] Dr. Leni Hamlin NEUT # 11.8 103/ul Critically high 1.4-6.5 [facility] Comment on above: Performed By: #### C MP, CRP #### [facility] [address] [place] [address] Dr. Leni Hamlin Neutrophils/100 WBC (Bld) 77.2 % Critically high 43.0-75.0 [facility] Comment on above: Performed By: #### C MP, CRP #### [facility] [address] [address] [address] Leni Hamlin Platelet mean volume (Bld) [Entitic vol] 10.5 fL Normal 9.5-13.5 [facility] Comment on above: Performed By: #### C MP, CRP #### [facility] [address] [place] [address] Dr. Leni Hamlin PLT 138 103/ul Critically low 150-450 [facility] Comment on above: Performed By: #### C MP, CRP #### [facility] [address] [address] [address] Leni Hamlin RBC 5.22 106/ul Normal 4.70-6.10 [facility] Comment on above: Performed By: #### C MP, CRP #### [facility] [address] [place] [address] Dr. Leni Hamlin WBC 15.3 103/ul Critically high 4.0-11.0 [facility] Comment on above: Performed By: #### C MP, CRP #### [facility] [address] [place] [address] Dr. Leni Hamlin CRPon 10-02-2022 CRP 13.7 mg/dL Critically high <=1.0 [facility] Comment on above: Performed By: #### C VDAGS #### [facility] [address] [place] [address] Dr. Leni Hamlin PROF 14(COMP METB)on 022 Albumin [Mass/Vol] 2.5 g/dL Critically low 3.4-5.0 Th [facility] Comment on above: Performed By: #### C VDAGS #### [facility] [address] [place] [address] Dr. Leni Hamlin Albumin/Globulin [Mass ratio] 0.8 {ratio} Normal [facility] Comment on above: Performed By: #### C VDAGS #### [facility] [address] [place] [address] Dr. Leni Hamlin ALP [Catalytic activity/Vol] 54 U/L Normal 46-116 [facility] Comment on above: Performed By: #### C VDAGS #### [facility] [address] [place] [address] Dr. Leni Hamlin ALT [Catalytic activity/Vol] 13 U/L Critically low 16-63 [facility] Comment on above: Performed By: #### C VDAGS #### [facility] [address] [place] [address] Dr. Leni Hamlin Anion gap [Moles/Vol] 10.6 mmol/L Normal [facility] Comment on above: Performed By: #### C VDAGS #### [facility] [address] [address] [address] Leni Hamlin AST [Catalytic activity/Vol] 9 U/L Critically low 15-37 [facility] Comment on above: Performed By: #### C VDAGS #### [facility] [address] [place] [address] Dr. Leni Hamlin Bilirubin [Mass/Vol] 0.3 mg/dL Normal 0.2-1.0 [facility] Comment on above: Performed By: #### C VDAGS #### [facility] [address] [place] [address] Dr. Leni Hamlin Calcium [Mass/Vol] 8.5 mg/dL Normal 8.5-10.1 [facility] Comment on above: Performed By: #### C VDAGS #### [facility] [address] [place] [address] Dr. Leni Hamlin Chloride [Moles/Vol] 104 mmol/L Normal 98-107 [facility] Comment on above: Performed By: #### C VDAGS #### [facility] [address] [place] [address] Dr. Leni Hamlin CO2 [Moles/Vol] 27.5 mmol/L Normal 21.0-32.0 [facility] Comment on above: Performed By: #### C VDAGS #### [facility] [address] [place] [address] Dr. Leni Hamlin Creatinine [Mass/Vol] 1.26 mg/dL Normal 0.70-1.30 [facility] Comment on above: Performed By: #### C VDAGS #### [facility] [address] [place] [address] Dr. Leni Hamlin EGFR-AF UGANDAN >60 Normal >=60 [facility] Comment on above: Performed By: #### C VDAGS #### [facility] [address] [address] [address] Leni Hamlin EGFR-NON AF UGANDAN 56 mL/min/1.73m2 Critically low >=60 [facility] Comment on above: Performed By: #### C VDAGS #### [facility] [address] [address] [address] Leni Hamlin Globulin (S) [Mass/Vol] 3.3 g/dL Normal [facility] Comment on above: Performed By: #### C VDAGS #### [facility] [address] [place] [address] Dr. Leni Hamlin Glucose [Mass/Vol] 122 mg/dL Critically high 74-106 [facility] Comment on above: Performed By: #### C VDAGS #### [facility] [address] [address] [address] Leni Hamlin Potassium [Moles/Vol] 4.1 mmol/L Normal 3.5-5.1 [facility] Comment on above: Performed By: #### C VDAGS #### [facility] [address] [place] [address] Dr. Leni Hamlin Protein [Mass/Vol] 5.8 g/dL Critically low 6.4-8.2 [facility] Comment on above: Performed By: #### C VDAGS #### [facility] [address] [address] [address] Leni Hamlin Sodium [Moles/Vol] 138 mmol/L Normal 136-145 [facility] Comment on above: Performed By: #### C VDAGS #### [facility] [address] [address] [address] Leni Hamlin Urea nitrogen [Mass/Vol] 20.0 mg/dL Critically high 7.0-18.0 [facility] Comment on above: Performed By: #### C VDAGS #### [facility] [address] [place] [address] Dr. Leni Hamlin Urea nitrogen/Creatinine [Mass ratio] 15.9 mg/mg Normal [facility] Comment on above: Performed By: #### C VDAGS #### [facility] [address] [place] [address] Dr. Leni Hamlin CBC AUTO DIFFon 10-01-2022 BASO # 0.1 103/ul Normal 0.0-0.1 [facility] Comment on above: Performed By: #### C MP, CRP #### [facility] [address] [place] [address] Dr. Leni Hamlin Basophils/100 WBC (Bld) 0.3 % Normal 0.2-2.0 [facility] Comment on above: Performed By: #### C MP, CRP #### [facility] [address] [place] [address] Dr. Leni Hamlin EO # 0.2 103/ul Normal 0.0-0.7 [facility] Comment on above: Performed By: #### C MP, CRP #### [facility] [address] [place] [address] Dr. Leni Hamlin Eosinophils/100 WBC (Bld) 0.8 % Critically low 0.9-7.0 [facility] Comment on above: Performed By: #### C MP, CRP #### [facility] [address] [place] [address] Dr. Leni Hamlin Erythrocyte distribution width (RBC) [Ratio] 13.6 % Normal 11.0-15.0 [facility] Comment on above: Performed By: #### C MP, CRP #### [facility] [address] [place] [address] Dr. Leni Hamlin Hematocrit (Bld) [Volume fraction] 49.0 % Normal 42.0-54.0 [facility] Comment on above: Performed By: #### C MP, CRP #### [facility] [address] [place] [address] Dr. Leni Hamlin Hemoglobin (Bld) [Mass/Vol] 16.0 g/dL Normal 14.0-18.0 [facility] Comment on above: Performed By: #### C MP, CRP #### [facility] [address] [address] [address] Leni Hamlin IG # 0.24 10e3/ul Critically high 0.00-0.03 [facility] Comment on above: Performed By: #### C MP, CRP #### [facility] [address] [address] [address] Leni Hamlin IG % 1.2 % Critically high 0.0-0.5 [facility] Comment on above: Performed By: #### C MP, CRP #### [facility] [address] [address] [address] Leni Hamlin LYMPH # 1.6 103/ul Normal 1.2-3.8 [facility] Comment on above: Performed By: #### C MP, CRP #### [facility] [address] [place] [address] Dr. Leni Hamlin Lymphocytes/100 WBC (Bld) 8.0 % Critically low 20.5-60.0 [facility] Comment on above: Performed By: #### C MP, CRP #### [facility] [address] [place] [address] Dr. Leni Hamlin MANUAL DIFF REQ NO Normal [facility] Comment on above: Performed By: #### C MP, CRP #### [facility] [address] [place] [address] Dr. Leni Hamlin MCH (RBC) [Entitic mass] 29.4 pg Normal 25.9-34.0 [facility] Comment on above: Performed By: #### C MP, CRP #### [facility] [address] [place] [address] Dr. Leni Hamlin MCHC (RBC) [Mass/Vol] 32.7 g/dL Normal 29.9-35.2 [facility] Comment on above: Performed By: #### C MP, CRP #### [facility] [address] [place] [address] Dr. Leni Hamlin MCV (RBC) [Entitic vol] 90.1 fL Normal 80.0-94.0 [facility] Comment on above: Performed By: #### C MP, CRP #### [facility] [address] [address] [address] Leni Hamlin MONO # 1.0 103/ul Critically high 0.3-0.8 [facility] Comment on above: Performed By: #### C MP, CRP #### [facility] [address] [address] [address] Leni Hamlin Monocytes/100 WBC (Bld) 5.1 % Normal 1.7-12.0 [facility] Comment on above: Performed By: #### C MP, CRP #### [facility] [address] [address] [address] Leni Hamlin NEUT # 16.8 103/ul Critically high 1.4-6.5 [facility] Comment on above: Performed By: #### C MP, CRP #### [facility] [address] [place] [address] Dr. Leni Hamlin Neutrophils/100 WBC (Bld) 84.6 % Critically high 43.0-75.0 [facility] Comment on above: Performed By: #### C MP, CRP #### [facility] [address] [address] [address] Leni Hamlin Platelet mean volume (Bld) [Entitic vol] 9.7 fL Normal 9.5-13.5 [facility] Comment on above: Performed By: #### C MP, CRP #### [facility] [address] [address] [address] Leni Hamlin PLT 138 103/ul Critically low 150-[address] [facility] Comment on above: Performed By: #### C MP, CRP #### [facility] [address] [address] [address] Leni Hamlin RBC 5.44 106/ul Normal 4.70-6.10 [facility] Comment on above: Performed By: #### C MP, CRP #### [facility] [address] [place] [address] Dr. Leni Hamlin WBC 19.8 103/ul Critically high 4.0-11.0 [facility] Comment on above: Performed By: #### C MP, CRP #### [facility] [address] [address] [address] Leni LEUNG # 0.1 103/ul Normal 0.0-0.1 [facility] Comment on above: Performed By: #### B MP, BNP #### [facility] [address] [address] [address] Leni Hamlin Basophils/100 WBC (Bld) 0.3 % Normal 0.2-2.0 [facility] Comment on above: Performed By: #### B MP, BNP #### [facility] [address] [place] [address] Dr. Leni Hamlin EO # 0.1 103/ul Normal 0.0-0.7 [facility] Comment on above: Performed By: #### B MP, BNP #### [facility] [address] [place] [address] Dr. Leni Hamlin Eosinophils/100 WBC (Bld) 0.7 % Critically low 0.9-7.0 [facility] Comment on above: Performed By: #### B MP, BNP #### [facility] [address] [place] [address] Dr. Leni Hamlin Erythrocyte distribution width (RBC) [Ratio] 13.6 % Normal 11.0-15.0 [facility] Comment on above: Performed By: #### B MP, BNP #### [facility] [address] [place] [address] Dr. Leni Hamlin Hematocrit (Bld) [Volume fraction] 46.9 % Normal 42.0-54.0 [facility] Comment on above: Performed By: #### B MP, BNP #### [facility] [address] [place] [address] Dr. Leni Hamlin Hemoglobin (Bld) [Mass/Vol] 15.5 g/dL Normal 14.0-18.0 [facility] Comment on above: Performed By: #### B MP, BNP #### [facility] [address] [place] [address] Dr. Leni Hamlin IG # 0.16 10e3/ul Critically high 0.00-0.03 [facility] Comment on above: Performed By: #### B MP, BNP #### [facility] [address] [place] [address] Dr. Leni Hamlin IG % 0.9 % Critically high 0.0-0.5 [facility] Comment on above: Performed By: #### B MP, BNP #### [facility] [address] [place] [address] Dr. Leni Hamlin LYMPH # 1.8 103/ul Normal 1.2-3.8 [facility] Comment on above: Performed By: #### B MP, BNP #### [facility] [address] [place] [address] Dr. Leni Hamlin Lymphocytes/100 WBC (Bld) 9.7 % Critically low 20.5-60.0 [facility] Comment on above: Performed By: #### B MP, BNP #### [facility] [address] [place] [address] Dr. Leni Hamlin MANUAL DIFF REQ NO Normal [facility] Comment on above: Performed By: #### B MP, BNP #### [facility] [address] [place] [address] Dr. Leni Hamlin MCH (RBC) [Entitic mass] 29.2 pg Normal 25.9-34.0 [facility] Comment on above: Performed By: #### B MP, BNP #### [facility] [address] [place] [address] Dr. Leni Hamlin MCHC (RBC) [Mass/Vol] 33.0 g/dL Normal 29.9-35.2 [facility] Comment on above: Performed By: #### B MP, BNP #### [facility] [address] [place] [address] Dr. Leni Hamlin MCV (RBC) [Entitic vol] 88.3 fL Normal 80.0-94.0 [facility] Comment on above: Performed By: #### B MP, BNP #### [facility] [address] [place] [address] Dr. Leni Hamlin MONO # 1.4 103/ul Critically high 0.3-0.8 [facility] Comment on above: Performed By: #### B MP, BNP #### [facility] [address] [place] [address] Dr. Leni Hamlin Monocytes/100 WBC (Bld) 7.3 % Normal 1.7-12.0 [facility] Comment on above: Performed By: #### B MP, BNP #### [facility] [address] [place] [address] Dr. Leni Hamlin NEUT # 15.1 103/ul Critically high 1.4-6.5 [facility] Comment on above: Performed By: #### B MP, BNP #### [facility] [address] [place] [address] Dr. Leni Hamlin Neutrophils/100 WBC (Bld) 81.1 % Critically high 43.0-75.0 [facility] Comment on above: Performed By: #### B MP, BNP #### [facility] [address] [place] [address] Dr. Leni Hamlin Platelet mean volume (Bld) [Entitic vol] 10.0 fL Normal 9.5-13.5 [facility] Comment on above: Performed By: #### B MP, BNP #### [facility] [address] [place] [address] Dr. Leni Hamlin PLT 141 103/ul Critically low 150-[address] [facility] Comment on above: Performed By: #### B MP, BNP #### [facility] [address] [place] [address] Dr. Leni Hamlin RBC 5.31 106/ul Normal 4.70-6.10 [facility] Comment on above: Performed By: #### B MP, BNP #### [facility] [address] [place] [address] Dr. Leni Hamlin WBC 18.7 103/ul Critically high 4.0-11.0 [facility] Comment on above: Performed By: #### B MP, BNP #### [facility] [address] [place] [address] Dr. Leni Hamlin CRPon 10-01-2022 CRP 16.0 mg/dL Critically high <=1.0 [facility] Comment on above: Performed By: #### C VDAGS #### [facility] [address] [address] [address] Leni Hamlin PROF 14(COMP METB)on 022 Albumin [Mass/Vol] 2.6 g/dL Critically low 3.4-5.0 Th [facility] Comment on above: Performed By: #### C MP, CRP #### [facility] [address] [address] [address] Leni Hmalin Albumin/Globulin [Mass ratio] 0.8 {ratio} Normal [facility] Comment on above: Performed By: #### C MP, CRP #### [facility] [address] [place] [address] Dr. Leni Hamlin ALP [Catalytic activity/Vol] 44 U/L Critically low 46-116 [facility] Comment on above: Performed By: #### C MP, CRP #### [facility] [address] [place] [address] Dr. Leni Hamlin ALT [Catalytic activity/Vol] 12 U/L Critically low 16-63 [facility] Comment on above: Performed By: #### C MP, CRP #### [facility] [address] [address] [address] Leni Hamlin Anion gap [Moles/Vol] 8.7 mmol/L Normal [facility] Comment on above: Performed By: #### C MP, CRP #### [facility] [address] [address] [address] Leni Hamlin AST [Catalytic activity/Vol] 10 U/L Critically low 15-37 [facility] Comment on above: Performed By: #### C MP, CRP #### [facility] [address] [address] [address] Leni Hamlin Bilirubin [Mass/Vol] 0.8 mg/dL Normal 0.2-1.0 [facility] Comment on above: Performed By: #### C MP, CRP #### [facility] [address] [address] [address] Leni Hamlin Calcium [Mass/Vol] 8.3 mg/dL Critically low 8.5-10.1 [facility] Comment on above: Performed By: #### C MP, CRP #### [facility] [address] [address] [address] Leni Hamlin Chloride [Moles/Vol] 103 mmol/L Normal 98-107 [facility] Comment on above: Performed By: #### C MP, CRP #### [facility] [address] [address] [address] Leni Hamlin CO2 [Moles/Vol] 28.2 mmol/L Normal 21.0-32.0 [facility] Comment on above: Performed By: #### C MP, CRP #### [facility] [address] [place] [address] Dr. Leni Hamlin Creatinine [Mass/Vol] 1.24 mg/dL Normal 0.70-1.30 [facility] Comment on above: Performed By: #### C MP, CRP #### [facility] [address] [place] [address] Dr. Leni Hamlin EGFR-AF UGANDAN >60 Normal >=60 [facility] Comment on above: Performed By: #### C MP, CRP #### [facility] [address] [place] [address] Dr. Leni Hamlin EGFR-NON AF UGANDAN 57 mL/min/1.73m2 Critically low >=60 [facility] Comment on above: Performed By: #### C MP, CRP #### [facility] [address] [place] [address] Dr. Leni Hamlin Globulin (S) [Mass/Vol] 3.2 g/dL Normal [facility] Comment on above: Performed By: #### C MP, CRP #### [facility] [address] [place] [address] Dr. Leni Hamlin Glucose [Mass/Vol] 111 mg/dL Critically high 74-106 [facility] Comment on above: Performed By: #### C MP, CRP #### [facility] [address] [address] [address] Leni Hamlin Potassium [Moles/Vol] 3.9 mmol/L Normal 3.5-5.1 [facility] Comment on above: Performed By: #### C MP, CRP #### [facility] [address] [place] [address] Dr. Leni Hamlin Protein [Mass/Vol] 5.8 g/dL Critically low 6.4-8.2 [facility] Comment on above: Performed By: #### C MP, CRP #### [facility] [address] [place] [address] Dr. Leni Hamlin Sodium [Moles/Vol] 136 mmol/L Normal 136-145 [facility] Comment on above: Performed By: #### C MP, CRP #### [facility] [address] [place] [address] Dr. Leni Hamlin Urea nitrogen [Mass/Vol] 17.0 mg/dL Normal 7.0-18.0 [facility] Comment on above: Performed By: #### C MP, CRP #### [facility] [address] [place] [address] Dr. Leni Hamlin Urea nitrogen/Creatinine [Mass ratio] 13.7 mg/mg Normal [facility] Comment on above: Performed By: #### C MP, CRP #### [facility] [address] [place] [address] Dr. Leni Hamlin C. DIFF PCRon 09-30-2022 C. DIFFICILE PCR Positive Critically abnormal NEGATIVE [facility] Comment on above: Performed By: #### C VDAGS #### [facility] [address] [place] [address] Dr. Leni Hamlin CBC AUTO DIFFon 09-30-2022 BASO # 0.0 103/ul Normal 0.0-0.1 [facility] Comment on above: Performed By: #### C BC #### [facility] [address] [place] [address] Dr. Leni Hamlin Basophils/100 WBC (Bld) 0.3 % Normal 0.2-2.0 [facility] Comment on above: Performed By: #### C BC #### [facility] [address] [place] [address] Dr. Leni Hamlin EO # 0.1 103/ul Normal 0.0-0.7 [facility] Comment on above: Performed By: #### C BC #### [facility] [address] [place] [address] Dr. Leni Hamlin Eosinophils/100 WBC (Bld) 0.8 % Critically low 0.9-7.0 [facility] Comment on above: Performed By: #### C BC #### [facility] [address] [place] [address] Dr. Leni Hamlin Erythrocyte distribution width (RBC) [Ratio] 13.4 % Normal 11.0-15.0 [facility] Comment on above: Performed By: #### C BC #### [facility] [address] [place] [address] Dr. Leni Hamlin Hematocrit (Bld) [Volume fraction] 50.4 % Normal 42.0-54.0 [facility] Comment on above: Performed By: #### C BC #### [facility] [address] [place] [address] Dr. Leni Hamlin Hemoglobin (Bld) [Mass/Vol] 16.2 g/dL Normal 14.0-18.0 [facility] Comment on above: Performed By: #### C BC #### [facility] [address] [place] [address] Dr. Leni Hamlin IG # 0.13 10e3/ul Critically high 0.00-0.03 [facility] Comment on above: Performed By: #### C BC #### [facility] [address] [place] [address] Dr. Leni Hamlin IG % 0.9 % Critically high 0.0-0.5 [facility] Comment on above: Performed By: #### C BC #### [facility] [address] [place] [address] Dr. Leni Hamlin LYMPH # 1.7 103/ul Normal 1.2-3.8 [facility] Comment on above: Performed By: #### C BC #### [facility] [address] [address] [address] Leni Hamlin Lymphocytes/100 WBC (Bld) 11.1 % Critically low 20.5-60.0 [facility] Comment on above: Performed By: #### C BC #### [facility] [address] [place] [address] Dr. Leni Hamlin MANUAL DIFF REQ NO Normal [facility] Comment on above: Performed By: #### C BC #### [facility] [address] [place] [address] Dr. Leni Hamlin MCH (RBC) [Entitic mass] 28.8 pg Normal 25.9-34.0 [facility] Comment on above: Performed By: #### C BC #### [facility] [address] [place] [address] Dr. Leni Hamlin MCHC (RBC) [Mass/Vol] 32.1 g/dL Normal 29.9-35.2 [facility] Comment on above: Performed By: #### C BC #### [facility] [address] [place] [address] Dr. Leni Hamlin MCV (RBC) [Entitic vol] 89.7 fL Normal 80.0-94.0 [facility] Comment on above: Performed By: #### C BC #### [facility] [address] [place] [address] Dr. Leni Hamlin MONO # 1.5 103/ul Critically high 0.3-0.8 [facility] Comment on above: Performed By: #### C BC #### [facility] [address] [place] [address] Dr. Leni Hamlin Monocytes/100 WBC (Bld) 9.8 % Normal 1.7-12.0 [facility] Comment on above: Performed By: #### C BC #### [facility] [address] [place] [address] Dr. Leni Hamlin NEUT # 11.7 103/ul Critically high 1.4-6.5 [facility] Comment on above: Performed By: #### C BC #### [facility] [address] [address] [address] Leni Hamlin Neutrophils/100 WBC (Bld) 77.1 % Critically high 43.0-75.0 [facility] Comment on above: Performed By: #### C BC #### [facility] [address] [address] [address] Leni Hamlin Platelet mean volume (Bld) [Entitic vol] 9.9 fL Normal 9.5-13.5 [facility] Comment on above: Performed By: #### C BC #### [facility] [address] [address] [address] Leni Hamlin PLT 156 103/ul Normal 150-450 [facility] Comment on above: Performed By: #### C BC #### [facility] [address] [place] [address] Dr. Leni Hamlin RBC 5.62 106/ul Normal 4.70-6.10 [facility] Comment on above: Performed By: #### C BC #### [facility] [address] [address] [address] Leni Hamlin WBC 15.2 103/ul Critically high 4.0-11.0 [facility] Comment on above: Performed By: #### C BC #### [facility] [address] [address] [address] Leni Hamlin CRPon 09-30-2022 CRP 7.6 mg/dL Critically high <=1.0 [facility] Comment on above: Performed By: #### C RP #### [facility] [address] [address] [address] Leni Hamlin PROF 14(COMP METB)on 022 Albumin [Mass/Vol] 2.8 g/dL Critically low 3.4-5.0 [facility] Comment on above: Performed By: #### C RP #### [facility] [address] [place], [place] [id number] Dr. Leni Hamlin Albumin/Globulin [Mass ratio] 0.9 {ratio} Normal [facility] Comment on above: Performed By: #### C RP #### [facility] [address] [place] [address] Dr. Leni Hamlin ALP [Catalytic activity/Vol] 45 U/L Critically low 46-116 [facility] Comment on above: Performed By: #### C RP #### [facility] [address] [address] [address] Leni Hamlin ALT [Catalytic activity/Vol] 17 U/L Normal 16-63 [facility] Comment on above: Performed By: #### C RP #### [facility] [address] [place] [address] Dr. Leni Hamlin Anion gap [Moles/Vol] 8.4 mmol/L Normal [facility] Comment on above: Performed By: #### C RP #### [facility] [address] [place] [address] Dr. Leni Hamlin AST [Catalytic activity/Vol] 9 U/L Critically low 15-37 [facility] Comment on above: Performed By: #### C RP #### [facility] [address] [place] [address] Dr. Leni Hamlin Bilirubin [Mass/Vol] 0.6 mg/dL Normal 0.2-1.0 [facility] Comment on above: Performed By: #### C RP #### [facility] [address] [place] [address] Dr. Leni Hamlin Calcium [Mass/Vol] 8.6 mg/dL Normal 8.5-10.1 [facility] Comment on above: Performed By: #### C RP #### [facility] [address] [place] [address] Dr. Leni Hamlin Chloride [Moles/Vol] 104 mmol/L Normal 98-107 [facility] Comment on above: Performed By: #### C RP #### [facility] [address] [place] [address] Dr. Leni Hamlin CO2 [Moles/Vol] 29.6 mmol/L Normal 21.0-32.0 [facility] Comment on above: Performed By: #### C RP #### [facility] [address] [place] [address] Dr. Leni Hamlin Creatinine [Mass/Vol] 1.23 mg/dL Normal 0.70-1.30 [facility] Comment on above: Performed By: #### C RP #### [facility] [address] [place] [address] Dr. Leni Hamlin EGFR-AF UGANDAN >60 Normal >=60 [facility] Comment on above: Performed By: #### C RP #### [facility] [address] [place] [address] Dr. Leni Hamlin EGFR-NON AF UGANDAN 58 mL/min/1.73m2 Critically low >=60 [facility] Comment on above: Performed By: #### C RP #### [facility] [address] [place] [address] Dr. Leni Hamlin Globulin (S) [Mass/Vol] 3.0 g/dL Normal [facility] Comment on above: Performed By: #### C RP #### [facility] [address] [place] [address] Dr. Leni Hamlin Glucose [Mass/Vol] 113 mg/dL Critically high 74-106 [facility] Comment on above: Performed By: #### C RP #### [facility] [address] [place] [address] Dr. Leni Hamlin Potassium [Moles/Vol] 4.0 mmol/L Normal 3.5-5.1 [facility] Comment on above: Performed By: #### C RP #### [facility] [address] [place] [address] Dr. Leni Hamlin Protein [Mass/Vol] 5.8 g/dL Critically low 6.4-8.2 [facility] Comment on above: Performed By: #### C RP #### [facility] [address] [place] [address] Dr. Leni Hamlin Sodium [Moles/Vol] 138 mmol/L Normal 136-145 [facility] Comment on above: Performed By: #### C RP #### [facility] [address] [place] [address] Dr. Leni Hamlin Urea nitrogen [Mass/Vol] 17.0 mg/dL Normal 7.0-18.0 [facility] Comment on above: Performed By: #### C RP #### [facility] [address] [place] [address] Dr. Leni Hamlin Urea nitrogen/Creatinine [Mass ratio] 13.8 mg/mg Normal [facility] Comment on above: Performed By: #### C RP #### [facility] [address] [place] [address] Dr. Leni Hamlin CBC AUTO DIFFon 09-29-2022 BASO # 0.1 103/ul Normal 0.0-0.1 [facility] Comment on above: Performed By: #### C VDAGS #### [facility] [address] [place] [address] Dr. Leni Hamlin Basophils/100 WBC (Bld) 0.4 % Normal 0.2-2.0 [facility] Comment on above: Performed By: #### C VDAGS #### [facility] [address] [place] [address] Dr. Leni Hamlin EO # 0.1 103/ul Normal 0.0-0.7 [facility] Comment on above: Performed By: #### C VDAGS #### [facility] [address] [place] [address] Dr. Leni Hamlin Eosinophils/100 WBC (Bld) 0.9 % Normal 0.9-7.0 [facility] Comment on above: Performed By: #### C VDAGS #### [facility] [address] [place] [address] Dr. Leni Hamlin Erythrocyte distribution width (RBC) [Ratio] 13.2 % Normal 11.0-15.0 [facility] Comment on above: Performed By: #### C VDAGS #### [facility] [address] [place] [address] Dr. Leni Hamlin Hematocrit (Bld) [Volume fraction] 53.1 % Normal 42.0-54.0 [facility] Comment on above: Performed By: #### C VDAGS #### [facility] [address] [place] [address] Dr. Leni Hamlin Hemoglobin (Bld) [Mass/Vol] 17.3 g/dL Normal 14.0-18.0 [facility] Comment on above: Performed By: #### C VDAGS #### [facility] [address] [place] [address] Dr. Leni Hamlin IG # 0.30 10e3/ul Critically high 0.00-0.03 [facility] Comment on above: Performed By: #### C VDAGS #### [facility] [address] [place] [address] Dr. Leni Hamlin IG % 2.2 % Critically high 0.0-0.5 [facility] Comment on above: Performed By: #### C VDAGS #### [facility] [address] [place] [address] Dr. Leni Hamlin LYMPH # 1.5 103/ul Normal 1.2-3.8 [facility] Comment on above: Performed By: #### C VDAGS #### [facility] [address] [place] [address] Dr. Leni Hamlin Lymphocytes/100 WBC (Bld) 10.5 % Critically low 20.5-60.0 [facility] Comment on above: Performed By: #### C VDAGS #### [facility] [address] [place] [address] Dr. Leni Hamlin MANUAL DIFF REQ NO Normal [facility] Comment on above: Performed By: #### C VDAGS #### [facility] [address] [place] [address] Dr. Leni Hamlin MCH (RBC) [Entitic mass] 29.0 pg Normal 25.9-34.0 [facility] Comment on above: Performed By: #### C VDAGS #### [facility] [address] [place] [address] Dr. Leni Hamlin MCHC (RBC) [Mass/Vol] 32.6 g/dL Normal 29.9-35.2 [facility] Comment on above: Performed By: #### C VDAGS #### [facility] [address] [address] [address] Leni Hamlin MCV (RBC) [Entitic vol] 88.9 fL Normal 80.0-94.0 [facility] Comment on above: Performed By: #### C VDAGS #### [facility] [address] [place] [address] Dr. Leni Hamlin MONO # 0.8 103/ul Normal 0.3-0.8 [facility] Comment on above: Performed By: #### C VDAGS #### [facility] [address] [place] [address] Dr. Leni Hamlin Monocytes/100 WBC (Bld) 6.0 % Normal 1.7-12.0 [facility] Comment on above: Performed By: #### C VDAGS #### [facility] [address] [place] [address] Dr. Leni Hamlin NEUT # 11.2 103/ul Critically high 1.4-6.5 [facility] Comment on above: Performed By: #### C VDAGS #### [facility] [address] [place] [address] Dr. Leni Hamlin Neutrophils/100 WBC (Bld) 80.0 % Critically high 43.0-75.0 [facility] Comment on above: Performed By: #### C VDAGS #### [facility] [address] [place] [address] Dr. Leni Hamlin Platelet mean volume (Bld) [Entitic vol] 9.6 fL Normal 9.5-13.5 [facility] Comment on above: Performed By: #### C VDAGS #### [facility] [address] [place] [address] Dr. Leni Hamlin PLT 186 103/ul Normal 150-450 [facility] Comment on above: Performed By: #### C VDAGS #### [facility] [address] [place] [address] Dr. Leni Hamlin RBC 5.97 106/ul Normal 4.70-6.10 [facility] Comment on above: Performed By: #### C VDAGS #### [facility] [address] [place], [place] [address] Dr. Leni Hamlin WBC 13.9 103/ul Critically high 4.0-11.0 [facility] Comment on above: Performed By: #### C VDAGS #### [facility] [address] [place], [place] [address] ABD/PELV W CONon [...] RAJESH CHACON Date: 2022-09-29 12:51 Normal [facility]11 SARS-CoV-2 (COVID-19) RNA VENESSA+probe Ql (Unsp spec) Not detected Normal NOT DETECTED [facility] Comment on above: Result Comment: When [...] for this test is supported by the [employer] of Health and Human Service's declaration that [...] Performed By: #### B MP, BNP #### [facility] [address] [place] [address] Dr. Leni Hamlin GI PANEL (PCR)on 09-29-2022 Adenovirus F 40/41 Not detected Normal NOT DETECTED [facility] Comment on above: Performed By: #### C RP #### [facility] [address] [place] [address] Dr. Leni Hamlin Astrovirus Not detected Normal NOT DETECTED [facility] Comment on above: Performed By: #### C RP #### [facility] [address] [place] [address] Dr. Leni Hamlin C. Diff toxin A/B Not detected Normal NOT DETECTED [facility] Comment on above: Performed By: #### C RP #### [facility] [address] [place] [address] Dr. Leni Hamlin Campylobacter Not detected Normal NOT DETECTED [facility] Comment on above: Performed By: #### C RP #### [facility] [address] [place] [address] Dr. Leni Hamlin Cryptosporidium Not detected Normal NOT DETECTED [facility] Comment on above: Performed By: #### C RP #### [facility] [address] [place] [address] Dr. Leni Hamlin Cyclos. Cayetanensis Not detected Normal NOT DETECTED [facility] Comment on above: Performed By: #### C RP #### [facility] [address] [place] [address] Dr. Leni Hamlin E. Coli O157 Not Applicable Normal Not Applicable [facility] Comment on above: Performed By: #### C RP #### [facility] [address] [place] [address] Dr. Leni Hamlin E. histolytica Not detected Normal NOT DETECTED [facility] Comment on above: Performed By: #### C RP #### [facility] [address] [place] [address] Dr. Leni Hamlin EAEC Not detected Normal NOT DETECTED [facility] Comment on above: Performed By: #### C RP #### [facility] [address] [address] [address] Leni Hamlin EIEC Not detected Normal NOT DETECTED [facility] Comment on above: Performed By: #### C RP #### [facility] [address] [place] [address] Dr. Leni Hamlin EPEC Not detected Normal NOT DETECTED [facility] Comment on above: Performed By: #### C RP #### [facility] [address] [place] [address] Dr. Leni Hamlin ETEC Not detected Normal NOT DETECTED [facility] Comment on above: Performed By: #### C RP #### [facility] [address] [place] [address] Dr. Leni Finley Lamblia Not detected Normal NOT DETECTED [facility] Comment on above: Performed By: #### C RP #### [facility] [address] [place] [address] Dr. Leni TEJEDA CONTROLS PASSED Normal [facility] Comment on above: Performed By: #### C RP #### [facility] [address] [place] [address] Dr. Leni FRIEND [facility] HEADER GI PANEL BACTERIA Normal [facility] Comment on above: Performed By: #### C RP #### [facility] [address] [place] [address] Dr. Leni KAMARA ECOLI GI PANEL DIARRHEAGENIC E.COLI / SHIGELLA Normal [facility] Comment on above: Performed By: #### C RP #### [facility] [address] [place] [address] Dr. Leni KAMARA INFO SEE BELOW Normal [facility] Comment on above: Result Comment: EAEC - Enteroaggregative E. Coli EPEC- Enteropathogenic E. Coli ETEC- Enterotoxigenic E. Coli lt/st STEC- Shigella-like toxin-producing E. Coli stx1/stx2 EIEC- Shigella/Enteroinvasive E. Coli Performed By: #### C RP #### [facility] [address] [place] [address] Dr. Leni KAMARA PARASITES GI PANEL PARASITES Normal [facility] Comment on above: Performed By: #### C RP #### [facility] [address] [place] [address] Dr. Leni KAMARA VIRUS GI PANEL VIRUSES Normal [facility] Comment on above: Performed By: #### C RP #### [facility] [address] [place] [address] Dr. Leni Hamlin Norovirus GI/GII Not detected Normal NOT DETECTED [facility] Comment on above: Performed By: #### C RP #### [facility] [address] [place] [address] Dr. Leni Hamlin P. Shigelloides Not detected Normal NOT DETECTED [facility] Comment on above: Performed By: #### C RP #### [facility] [address] [place] [address] Dr. Leni Hamlin Rotavirus A Not detected Normal NOT DETECTED [facility] Comment on above: Performed By: #### C RP #### [facility] [address] [place] [address] Dr. Leni Hamlin Salmonella Not detected Normal NOT DETECTED [facility] Comment on above: Performed By: #### C RP #### [facility] [address] [place] [address] Dr. Leni Hamlin Sapovirus Not detected Normal NOT DETECTED [facility] Comment on above: Performed By: #### C RP #### [facility] [address] [place] [address] Dr. Leni Hamlin STEC Not detected Normal NOT DETECTED [facility] Comment on above: Performed By: #### C RP #### [facility] [address] [place] [address] Dr. Leni Hamlin Vibrio Not detected Normal NOT DETECTED [facility] Comment on above: Performed By: #### C RP #### [facility] [address] [place] [address] Dr. Leni Hamlin Vibrio Cholera Not detected Normal NOT DETECTED [facility] Comment on above: Performed By: #### C RP #### [facility] [address] [place] [address] Dr. Leni Hamlin Y. Enterocolitica Not detected Normal NOT DETECTED [facility] Comment on above: Performed By: #### C RP #### [facility] [address] [place] [address] Dr. Leni Hamlin PROF CHEM 8 (BAS METB)on Anion gap [Moles/Vol] 5.8 mmol/L Normal [facility] Comment on above: Performed By: #### C VDAGS #### [facility] [address] [place] [address] Dr. Leni Hamlin Calcium [Mass/Vol] 9.0 mg/dL Normal 8.5-10.1 [facility] Comment on above: Performed By: #### C VDAGS #### [facility] [address] [place] [address] Dr. Leni Hamlin Chloride [Moles/Vol] 103 mmol/L Normal 98-107 [facility] Comment on above: Performed By: #### C VDAGS #### [facility] [address] [place] [address] Dr. Leni Hamlin CO2 [Moles/Vol] 31.7 mmol/L Normal 21.0-32.0 [facility] Comment on above: Performed By: #### C VDAGS #### [facility] [address] [place] [address] Dr. Leni Hamlin Creatinine [Mass/Vol] 1.28 mg/dL Normal 0.70-1.30 [facility] Comment on above: Performed By: #### C VDAGS #### [facility] [address] [place] [address] Dr. Leni Hamlin EGFR-AF UGANDAN >60 Normal >=60 [facility] Comment on above: Performed By: #### C VDAGS #### [facility] [address] [address] [address] Leni Hamlin EGFR-NON AF UGANDAN 55 mL/min/1.73m2 Critically low >=60 [facility] Comment on above: Performed By: #### C VDAGS #### [facility] [address] [address] [address] Leni Hamlin Glucose [Mass/Vol] 130 mg/dL Critically high 74-106 [facility] Comment on above: Performed By: #### C VDAGS #### [facility] [address] [place] [address] Dr. Leni Hamlin Potassium [Moles/Vol] 4.5 mmol/L Normal 3.5-5.1 [facility] Comment on above: Performed By: #### C VDAGS #### [facility] [address] [place] [address] Dr. Leni Hamlin Sodium [Moles/Vol] 136 mmol/L Normal 136-145 [facility] Comment on above: Performed By: #### C VDAGS #### [facility] [address] [address] [address] Leni Hamlin Urea nitrogen [Mass/Vol] 23.0 mg/dL Critically high 7.0-18.0 [facility] Comment on above: Performed By: #### C VDAGS #### [facility] [address] [place] [address] Dr. Leni Hamlin Urea nitrogen/Creatinine [Mass ratio] 18.0 mg/mg Normal [facility] Comment on above: Performed By: #### C VDAGS #### [facility] [address] [place] [address] Dr. Leni Hamlin [facility]on [facility]-13 SARS-CoV-2 (COVID-19) RNA VENESSA+probe Ql (Unsp spec) Not detected Normal NOT DETECTED [facility] Comment on above: [...] for this test is supported by the [place] of Health and Human Service's declaration that [...] Performed By: #### C MP, CRP #### [facility] [address] [place] [address] Dr. Leni Hamlin Covid-19 PCR ([facility])on 05-11 SARS-CoV-2 (COVID-19) RNA VENESSA+probe Ql (Unsp spec) Detected Critically abnormal NOT DETECTED [facility] Comment on above: Result Comment: This test is not yet approved or cleared by the [place] FDA. When there are no FDA-approved or cleared tests available, and other criteria are met, FDA can make tests available under an emergency access mechanism called an Emergency Use Authorization (EUA). The EUA for this test is supported by the [place] of Health and Human Service's (HHS's) declaration [...] used). Performed By: #### C RP #### [facility] [address] [place] [address] Dr. Leni Hamlin Covid-19 PCR ([facility])on 04-11 SARS-CoV-2 (COVID-19) RNA VENESSA+probe Ql (Unsp spec) Not detected Normal NOT DETECTED [facility] Comment on above: Result Comment: This test is not yet approved or cleared by the [place] FDA. When there are no FDA-approved or cleared tests available, and other criteria are met, FDA can make tests available under an emergency access mechanism called an Emergency Use Authorization (EUA). The EUA for this test is supported by the Pet[employer] Analyst of Health and Human Service's (HHS's) declaration [...] SARS-CoV-2. Performed By: #### C VDTB #### [facility] [address] [place] [address] Dr. Leni Hamlin SYMPTOMATIC COVID-19 ANTIGEN on 04-23-2022 EUA Statement SEE BELOW Normal [facility] Comment on above: Result Comment: This [...] sooner. Performed By: #### C VDAGS #### [facility] [address] [place] [address] Dr. Leni Hamlin SARS-CoV-2 (COVID-19) RNA VENESSA+probe Ql (Unsp spec) Negative Normal NEGATIVE [facility] Comment on above: Performed By: #### C VDAGS #### [facility] [address] [place], [place] [address] Dr. Leni Hamlin Cardiovascular Lab Reporton 03-22-2022 Cardiovascular Lab Report [facility] Patient Name: Brian Oneal MR #: [id number] Department of Physician: Modesto Becerra MD Medicine Service Date: 03/22/2022 Division of Birthdate: 1950 Cardiology Room #: [facility] [address] [place] [address] Cardiovascular Laboratory Report PACEMAKER IMPLANT PROCEDURE NOTE [...] using modified seldinger technique using a 5 [place] micro-puncture needle on two occasions and 0.35 [...] pocket was created for the device. 6 [place] Safesheaths were placed over the wire. An active fixation Biotronik pacing lead was then delivered through the 6Fsheath to the right ventricle. After confirmation of lead position on orthogonal views (RUBALCAVA and SUDANESE) to confirm septal position, the screw was [...] lead position on orthogonal views (RUBALCAVA and SUDANESE), the screw was activated. After confirmation of [...] Device info: Biotronik Edora Model# 8DR-T Serial# [id number] RA lead: Model# Biotronik Solia S45 Serial# [id number] Sensin.5mV Threshold: 0.6V@0.5ms Impedance: 507 Ohms RV lead: Model# Biotronik Solia S53 Serial# [id number] Sensin.5mV Threshold: 0.6V@0.4ms Impedance: 663 Ohms POST [...] El (more content not included)... Normal [facility] SPUTUM CULTUREon 03-17-2022 Epithelial cells LM Ql (Urine sed) Few Normal [facility] Comment on above: Performed By: #### B MP, BNP #### [facility] [address] [address] [address] Leni Hamlin Gram Stain Evaluation Comment Normal [facility] Comment on above: Result Comment: This specimen is of good quality and is acceptable for routine bacterial culture. Performed By: #### B MP, BNP #### [facility] [address] [place] [address] Dr. Leni Hamlin Lower Respiratory Culture Final report Normal [facility] Comment on above: Performed By: #### B MP, BNP #### [facility] [address] [place] [address] Dr. Leni Hamlin Result 1 Comment Normal [facility] Comment on above: Result Comment: Few gram negative rods. Performed By: #### B MP, BNP #### [facility] [address] [place] [address] Dr. Leni Hamlin Result Comment: Rout ine respiratory bola Result 2 Comment Normal [facility] Comment on above: Result Comment: Few gram positive cocci Performed By: #### B MP, BNP #### [facility] [address] [place] [address] Dr. Leni Hamlin Result 3 Comment Normal [facility] Comment on above: Result Comment: Rare gram positive rods Performed By: #### B MP, BNP #### [facility] [address] [place] [address] Dr. Leni Hamlin Result 4 Normal [facility] Comment on above: Performed By: #### B MP, BNP #### [facility] [address] [place] [address] Dr. Leni Hamlin White Blood Cells Few Normal [facility] Comment on above: Performed By: #### B MP, BNP #### [facility] [address] [place] [address] Dr. Leni Hamlin BNPon 03-15-2022 Natriuretic peptide B (Bld) [Mass/Vol] 429.0 pg/mL Normal <=900.0 [facility] Comment on above: Performed By: #### C MP, CRP #### [facility] [address] [place] [address] Dr. Leni Hamlin CBC AUTO DIFFon 03-15-2022 BASO # 0.0 103/ul Normal 0.0-0.1 [facility] Comment on above: Performed By: #### C VDAGS #### [facility] [address] [place] [address] Dr. Leni Hamlin Basophils/100 WBC (Bld) 0.2 % Normal 0.2-2.0 [facility] Comment on above: Performed By: #### C VDAGS #### [facility] [address] [place] [address] Dr. Leni Hamlin EO # 0.0 103/ul Normal 0.0-0.7 [facility] Comment on above: Performed By: #### C VDAGS #### [facility] [address] [place] [address] Dr. Leni Hamlin Eosinophils/100 WBC (Bld) 0.0 % Critically low 0.9-7.0 [facility] Comment on above: Performed By: #### C VDAGS #### [facility] [address] [place] [address] Dr. Leni Hamlin Erythrocyte distribution width (RBC) [Ratio] 13.6 % Normal 11.0-15.0 [facility] [facility] Comment on above: Performed By: #### C VDAGS #### [facility] [address] [place] [address] Dr. Leni Hamlin Hematocrit (Bld) [Volume fraction] 44.5 % Normal 42.0-54.0 [facility] Comment on above: Performed By: #### C VDAGS #### [facility] [address] [place] [address] Dr. Leni Hamlin Hemoglobin (Bld) [Mass/Vol] 13.8 g/dL Critically low 14.0-18.0 [facility] Comment on above: Performed By: #### C VDAGS #### [facility] [address] [place] [address] Dr. Leni Hamlin IG # 0.35 10e3/ul Critically high 0.00-0.03 [facility] Comment on above: Performed By: #### C VDAGS #### [facility] [address] [place] [address] Dr. Leni Hamlin IG % 2.4 % Critically high 0.0-0.5 [facility] Comment on above: Performed By: #### C VDAGS #### [facility] [address] [place] [address] Dr. Leni Hamlin LYMPH # 0.6 103/ul Critically low 1.2-3.8 [facility] Comment on above: Performed By: #### C VDAGS #### [facility] [address] [place] [address] Dr. Leni Hamlin Lymphocytes/100 WBC (Bld) 4.1 % Critically low 20.5-60.0 [facility] Comment on above: Performed By: #### C VDAGS #### [facility] [address] [place] [address] Dr. Leni Hamlin MANUAL DIFF REQ NO Normal [facility] Comment on above: Performed By: #### C VDAGS #### [facility] [address] [place] [address] Dr. Leni Hamlin MCH (RBC) [Entitic mass] 29.4 pg Normal 25.9-34.0 [facility] Comment on above: Performed By: #### C VDAGS #### [facility] [address] [place] [address] Dr. Leni Hamlin MCHC (RBC) [Mass/Vol] 31.0 g/dL Normal 29.9-35.2 [facility] Comment on above: Performed By: #### C VDAGS #### [facility] [address] [address] [address] Leni Hamlin MCV (RBC) [Entitic vol] 94.7 fL Critically high 80.0-94.0 [facility] Comment on above: Performed By: #### C VDAGS #### [facility] [address] [place] [address] Dr. Leni Hamlin MONO # 0.7 103/ul Normal 0.3-0.8 [facility] Comment on above: Performed By: #### C VDAGS #### [facility] [address] [place] [address] Dr. Leni Hamlin Monocytes/100 WBC (Bld) 4.7 % Normal 1.7-12.0 [facility] Comment on above: Performed By: #### C VDAGS #### [facility] [address] [place] [address] Dr. Leni Hamlin NEUT # 12.9 103/ul Critically high 1.4-6.5 [facility] Comment on above: Performed By: #### C VDAGS #### [facility] [address] [place] [address] Dr. Leni Hamlin Neutrophils/100 WBC (Bld) 88.6 % Critically high 43.0-75.0 [facility] Comment on above: Performed By: #### C VDAGS #### [facility] [address] [place] [address] Dr. Leni Hamlin Platelet mean volume (Bld) [Entitic vol] 10.2 fL Normal 9.5-13.5 [facility] Comment on above: Performed By: #### C VDAGS #### [facility] [address] [place] [address] Dr. Leni Hamlin PLT 176 103/ul Normal 150-450 [facility] Comment on above: Performed By: #### C VDAGS #### [facility] [address] [place] [address] Dr. Leni Hamlin RBC 4.70 106/ul Normal 4.70-6.10 [facility] Comment on above: Performed By: #### C VDAGS #### [facility] [address] [address] [address] Leni Hamlin WBC 14.6 103/ul Critically high 4.0-11.0 [facility] Comment on above: Performed By: #### C VDAGS #### [facility] [address] [place] [address] Dr. Leni Hamlin PROF CHEM 8 (BAS METB)on Anion gap [Moles/Vol] 10.2 mmol/L Normal [facility] Comment on above: Performed By: #### C MP, CRP #### [facility] [address] [place] [address] Dr. Leni Hamlin Calcium [Mass/Vol] 8.0 mg/dL Critically low 8.5-10.1 [facility] Comment on above: Performed By: #### C MP, CRP #### [facility] [address] [place] [address] Dr. Leni Hamlin Chloride [Moles/Vol] 104 mmol/L Normal 98-107 [facility] Comment on above: Performed By: #### C MP, CRP #### [facility] [address] [place] [address] Dr. Leni Hamlin CO2 [Moles/Vol] 28.2 mmol/L Normal 21.0-32.0 [facility] Comment on above: Performed By: #### C MP, CRP #### [facility] [address] [place] [address] Dr. Leni Hamlin Creatinine [Mass/Vol] 1.36 mg/dL Critically high 0.70-1.30 [facility] Comment on above: Performed By: #### C MP, CRP #### [facility] [address] [place] [address] Dr. Leni Hamlin EGFR-AF UGANDAN >60 Normal >=60 [facility] Comment on above: Performed By: #### C MP, CRP #### [facility] [address] [place] [address] Dr. Leni Hamlin EGFR-NON AF UGANDAN 51 mL/min/1.73m2 Critically low >=60 [facility] Comment on above: Performed By: #### C MP, CRP #### [facility] [address] [place] [address] Dr. Leni Hamlin Glucose [Mass/Vol] 205 mg/dL Critically high 74-106 [facility] Comment on above: Performed By: #### C MP, CRP #### [facility] [address] [place] [address] Dr. Leni Hamlin Potassium [Moles/Vol] 4.4 mmol/L Normal 3.5-5.1 [facility] Comment on above: Performed By: #### C MP, CRP #### [facility] [address] [place] [address] Dr. Leni Hamlin Sodium [Moles/Vol] 138 mmol/L Normal 136-145 [facility] Comment on above: Performed By: #### C MP, CRP #### [facility] [address] [place] [address] Dr. Leni Hamlin Urea nitrogen [Mass/Vol] 29.0 mg/dL Critically high 7.0-18.0 [facility] Comment on above: Performed By: #### C MP, CRP #### [facility] [address] [place] [address] Dr. Leni Hamlin Urea nitrogen/Creatinine [Mass ratio] 21.3 mg/mg Normal [facility] Comment on above: Performed By: #### C MP, CRP #### [facility] [address] [place] [address] Dr. Leni Hamlin BNPon 03-14-2022 Natriuretic peptide B (Bld) [Mass/Vol] 337.0 pg/mL Normal <=900.0 [facility] Comment on above: Performed By: #### C RP #### [facility] [address] [place] [address] Dr. Leni Hamlin CBC AUTO DIFFon 03-14-2022 BASO # 0.0 103/ul Normal 0.0-0.1 [facility] Comment on above: Performed By: #### C MP, CRP #### [facility] [address] [place] [address] Dr. Leni Hamlin Basophils/100 WBC (Bld) 0.2 % Normal 0.2-2.0 [facility] Comment on above: Performed By: #### C MP, CRP #### [facility] [address] [place] [address] Dr. Leni Hamlin EO # 0.0 103/ul Normal 0.0-0.7 [facility] Comment on above: Performed By: #### C MP, CRP #### [facility] [address] [place] [address] Dr. Leni Hamlin Eosinophils/100 WBC (Bld) 0.0 % Critically low 0.9-7.0 [facility] Comment on above: Performed By: #### C MP, CRP #### [facility] [address] [place] [address] Dr. Leni Hamlin Erythrocyte distribution width (RBC) [Ratio] 13.6 % Normal 11.0-15.0 [facility] Comment on above: Performed By: #### C MP, CRP #### [facility] [address] [place] [address] Dr. Leni Hamlin Hematocrit (Bld) [Volume fraction] 47.8 % Normal 42.0-54.0 [facility] Comment on above: Performed By: #### C MP, CRP #### [facility] [address] [place] [address] Dr. Leni Hamlin Hemoglobin (Bld) [Mass/Vol] 14.6 g/dL Normal 14.0-18.0 [facility] Comment on above: Performed By: #### C MP, CRP #### [facility] [address] [place] [address] Dr. Leni Hamlin IG # 0.22 10e3/ul Critically high 0.00-0.03 [facility] Comment on above: Performed By: #### C MP, CRP #### [facility] [address] [place] [address] Dr. Leni Hamlin IG % 1.3 % Critically high 0.0-0.5 [facility] Comment on above: Performed By: #### C MP, CRP #### [facility] [address] [address] [address] Leni Hamlin LYMPH # 0.5 103/ul Critically low 1.2-3.[address] [facility] Comment on above: Performed By: #### C MP, CRP #### [facility] [address] [address] [address] Leni Hamlin Lymphocytes/100 WBC (Bld) 2.9 % Critically low 20.5-60.0 [facility] Comment on above: Performed By: #### C MP, CRP #### [facility] [address] [place] [address] Dr. Leni Hamlin MANUAL DIFF REQ NO Normal [facility] Comment on above: Performed By: #### C MP, CRP #### [facility] [address] [place] [address] Dr. Leni Hamlin MCH (RBC) [Entitic mass] 29.4 pg Normal 25.9-34.0 [facility] Comment on above: Performed By: #### C MP, CRP #### [facility] [address] [place] [address] Dr. Leni Hamlin MCHC (RBC) [Mass/Vol] 30.5 g/dL Normal 29.9-35.2 [facility] Comment on above: Performed By: #### C MP, CRP #### [facility] [address] [place] [address] Dr. Leni Hamlin MCV (RBC) [Entitic vol] 96.4 fL Critically high 80.0-94.0 [facility] Comment on above: Performed By: #### C MP, CRP #### [facility] [address] [place] [address] Dr. Leni Hamlin MONO # 1.1 103/ul Critically high 0.3-0.8 [facility] Comment on above: Performed By: #### C MP, CRP #### [facility] [address] [place] [address] Dr. Leni Hamlin Monocytes/100 WBC (Bld) 6.4 % Normal 1.7-12.0 [facility] Comment on above: Performed By: #### C MP, CRP #### [facility] [address] [address] [address] Leni Hamlin NEUT # 15.2 103/ul Critically high 1.4-6.5 [facility] Comment on above: Performed By: #### C MP, CRP #### [facility] [address] [address] [address] Leni Hamlin Neutrophils/100 WBC (Bld) 89.2 % Critically high 43.0-75.0 [facility] Comment on above: Performed By: #### C MP, CRP #### [facility] [address] [address] [address] Leni Hamlin Platelet mean volume (Bld) [Entitic vol] 10.4 fL Normal 9.5-13.5 [facility] Comment on above: Performed By: #### C MP, CRP #### [facility] [address] [address] [address] Leni Hamlin PLT 167 103/ul Normal 150-450 [facility] Comment on above: Performed By: #### C MP, CRP #### [facility] [address] [address] [address] Leni Hamlin RBC 4.96 106/ul Normal 4.70-6.10 [facility] Comment on above: Performed By: #### C MP, CRP #### [facility] [address] [address] [address] Leni Hamlin WBC 17.0 103/ul Critically high 4.0-11.0 [facility] Comment on above: Performed By: #### C MP, CRP #### [facility] [address] [address] [address] Leni Hamlin PROF CHEM 8 (BAS METB)on Anion gap [Moles/Vol] 7.0 mmol/L Normal [facility] Comment on above: Performed By: #### C VDAGS #### [facility] [address] [address] [address] Leni Hamlin Calcium [Mass/Vol] 8.3 mg/dL Critically low 8.5-10.1 Th e [facility] Comment on above: Performed By: #### C VDAGS #### [facility] [address] [place] [address] Dr. Leni Hamlin Chloride [Moles/Vol] 102 mmol/L Normal 98-107 [facility] Comment on above: Performed By: #### C VDAGS #### [facility] [address] [place] [address] Dr. Leni Hamlin CO2 [Moles/Vol] 29.6 mmol/L Normal 21.0-32.0 [facility] Comment on above: Performed By: #### C VDAGS #### [facility] [address] [place] [address] Dr. Leni Hamlin Creatinine [Mass/Vol] 1.48 mg/dL Critically high 0.70-1.30 [facility] Comment on above: Performed By: #### C VDAGS #### [facility] [address] [place] [address] Dr. Leni Hamlin EGFR-AF UGANDAN 56 mL/min/1.73m2 Critically low >=60 [facility] Comment on above: Performed By: #### C VDAGS #### [facility] [address] [place] [address] Dr. Leni Hamlin EGFR-NON AF UGANDAN 47 mL/min/1.73m2 Critically low >=60 [facility] Comment on above: Performed By: #### C VDAGS #### [facility] [address] [place] [address] Dr. Leni Hamlin Glucose [Mass/Vol] 168 mg/dL Critically high 74-106 T [facility] Comment on above: Performed By: #### C VDAGS #### [facility] [address] [place] [address] Dr. Leni Hamlin Potassium [Moles/Vol] 4.6 mmol/L Normal 3.5-5.1 [facility] Comment on above: Performed By: #### C VDAGS #### [facility] [address] [place] [address] Dr. Leni Hamlin Sodium [Moles/Vol] 134 mmol/L Critically low 136-145 Th e [facility] Comment on above: Performed By: #### C VDAGS #### [facility] [address] [place] [address] Dr. Leni Hamlin Urea nitrogen [Mass/Vol] 29.0 mg/dL Critically high 7.0-18.0 [facility] Comment on above: Performed By: #### C VDAGS #### [facility] [address] [place] [address] Dr. Leni Hamlin Urea nitrogen/Creatinine [Mass ratio] 19.6 mg/mg Normal [facility] Comment on above: Performed By: #### C VDAGS #### [facility] [address] [place] [address] Dr. Leni Hamlin BNPon 03-13-2022 Natriuretic peptide B (Bld) [Mass/Vol] 501.0 pg/mL Normal <=900.0 [facility] Comment on above: Performed By: #### B MP, BNP #### [facility] [address] [place] [address] Dr. Leni Hamlin CBC W MANUAL DIFFon 03-13-20 ATYPICAL LYMPH # Normal [facility] Comment on above: Performed By: #### C VDAGS #### [facility] [address] [place] [address] Dr. Leni Hamlin ATYPICAL LYMPH % Normal [facility] Comment on above: Performed By: #### C VDAGS #### [facility] [address] [place] [address] Dr. Leni Hamlin BAND # 2.1 103/ul Critically high 0.0-0.3 [facility] Comment on above: Performed By: #### C VDAGS #### [facility] [address] [place] [address] Dr. Leni Hamlin BAND % 12 % Critically high 0-5 [facility] Comment on above: Performed By: #### C VDAGS #### [facility] [address] [place] [address] Dr. Leni Hamlin BASOM # 0.00 103/ul Normal 0.00-0.10 [facility] Comment on above: Performed By: #### C VDAGS #### [facility] [address] [place] [address] Dr. Leni Hamlin BASOM % 0.0 % Critically low 0.2-2.0 [facility] Comment on above: Performed By: #### C VDAGS #### [facility] [address] [place] [address] Dr. Leni Hamlin BLAST # Normal [facility] Comment on above: Performed By: #### C VDAGS #### [facility] [address] [place] [address] Dr. Leni Hamlin BLAST % Normal [facility] Comment on above: Performed By: #### C VDAGS #### [facility] [address] [place] [address] Dr. Leni Hamlin CORRECTED WBC Normal 4.0-11.0 [facility] Comment on above: Performed By: #### C VDAGS #### [facility] [address] [place] [address] Dr. Leni Hamlin EOS # 0.00 103/ul Normal 0.00-0.70 [facility] Comment on above: Performed By: #### C VDAGS #### [facility] [address] [place] [address] Dr. Leni Hamlin EOS% 0.0 % Critically low 0.9-7.[address] [facility] Comment on above: Performed By: #### C VDAGS #### [facility] [address] [place] [address] Dr. Leni Hamlin HCT 51.2 % Normal 42.0-54.0 [facility] Comment on above: Performed By: #### C VDAGS #### [facility] [address] [place] [address] Dr. Leni Hamlin HGB 15.4 g/dl Normal 14.0-18.0 [facility] Comment on above: Performed By: #### C VDAGS #### [facility] [address] [place], [place] [id number] Dr. Leni Hamlin LYMPHM # 0.52 103/ul Critically low 1.20-3.80 [facility] Comment on above: Performed By: #### C VDAGS #### [facility] [address] [place] [address] Dr. Leni Hamlin LYMPHM% 3.0 % Critically low 20.5-60.0 [facility] Comment on above: Performed By: #### C VDAGS #### [facility] [address] [place] [address] Dr. Leni Hamlin MCH 29.6 pg Normal 25.9-34.0 [facility] Comment on above: Performed By: #### C VDAGS #### [facility] [address] [place] [address] Dr. Leni Hamlin MCHC 30.1 g/dl Normal 29.9-35.2 [facility] Comment on above: Performed By: #### C VDAGS #### [facility] [address] [place] [address] Dr. Leni Hamlin MCV 98.5 fL Critically high 80.0-94.0 [facility] Comment on above: Performed By: #### C VDAGS #### [facility] [address] [place] [address] Dr. Leni Hamlin METAMYELOCYTE # Normal [facility] Comment on above: Performed By: #### C VDAGS #### [facility] [address] [place] [address] Dr. Leni Hamlin METAMYELOCYTE % Normal [facility] Comment on above: Performed By: #### C VDAGS #### [facility] [address] [place] [address] Dr. Leni Hamlin MONOM# 0.86 103/ul Critically high 0.30-0.80 [facility] Comment on above: Performed By: #### C VDAGS #### [facility] [address] [place] [address] Dr. Leni Hamlin MONOM% 5.0 % Normal 1.7-12.0 [facility] Comment on above: Performed By: #### C VDAGS #### [facility] [address] [address] [address] Leni Hamlin MPV 10.0 fL Normal 9.5-13.5 [facility] Comment on above: Performed By: #### C VDAGS #### [facility] [address] [address] [address] Leni Hamlin MYELOCYTE # Normal [facility] Comment on above: Performed By: #### C VDAGS #### [facility] [address] [address] [address] Leni Hamlin MYELOCYTE % Normal [facility] Comment on above: Performed By: #### C VDAGS #### [facility] [address] [place] [address] Dr. Leni Hamlin NRBC Normal [facility] Comment on above: Performed By: #### C VDAGS #### [facility] [address] [address] [address] Leni Hamlin PLT 161 103/ul Normal 150-450 [facility] Comment on above: Performed By: #### C VDAGS #### [facility] [address] [address] [address] Leni Hamlin RBC 5.20 106/ul Normal 4.70-6.10 [facility] Comment on above: Performed By: #### C VDAGS #### [facility] [address] [place] [address] Dr. Leni Hamlin RDW 13.5 % Normal 11.0-15.0 [facility] Comment on above: Performed By: #### C VDAGS #### [facility] [address] [address] [address] Leni Hamlin SEG # 13.76 103/ul Critically high 1.40-6.50 [facility] Comment on above: Performed By: #### C VDAGS #### [facility] [address] [place] [address] Dr. Leni Hamlin SEG % 80.0 % Critically high 43.0-75.0 [facility] Comment on above: Performed By: #### C VDAGS #### [facility] [address] [address] [address] Leni Hamlin WBC 17.2 103/ul Critically high 4.0-11.0 [facility] Comment on above: Performed By: #### C VDAGS #### [facility] [address] [place] [address] Dr. Leni Hamlin PROF CHEM 8 (BAS METB)on Anion gap [Moles/Vol] 12.5 mmol/L Normal [facility] Comment on above: Performed By: #### C VDAGS #### [facility] [address] [place] [address] Dr. Leni Hamlin Calcium [Mass/Vol] 8.4 mg/dL Critically low 8.5-10.1 Th [facility] Comment on above: Performed By: #### C VDAGS #### [facility] [address] [place] [address] Dr. eLni Hamlin Chloride [Moles/Vol] 100 mmol/L Normal 98-107 [facility] Comment on above: Performed By: #### C VDAGS #### [facility] [address] [place] [address] Dr. Leni Hamlin CO2 [Moles/Vol] 26.7 mmol/L Normal 21.0-32.0 [facility] Comment on above: Performed By: #### C VDAGS #### [facility] [address] [place] [address] Dr. Leni Hamlin Creatinine [Mass/Vol] 1.87 mg/dL Critically high 0.70-1.30 [facility] Comment on above: Performed By: #### C VDAGS #### [facility] [address] [place] [address] Dr. Leni Hamlin EGFR-AF UGANDAN 43 mL/min/1.73m2 Critically low >=60 [facility] Comment on above: Performed By: #### C VDAGS #### [facility] [address] [place] [address] Dr. Leni Hamlin EGFR-NON AF UGANDAN 36 mL/min/1.73m2 Critically low >=60 [facility] Comment on above: Performed By: #### C VDAGS #### [facility] [address] [place] [address] Dr. Leni Hamlin Glucose [Mass/Vol] 222 mg/dL Critically high 74-106 T [facility] Comment on above: Performed By: #### C VDAGS #### [facility] [address] [place] [address] Dr. Leni Hamlin Potassium [Moles/Vol] 4.2 mmol/L Normal 3.5-5.1 [facility] Comment on above: Performed By: #### C VDAGS #### [facility] [address] [place] [address] Dr. Leni Hamlin Sodium [Moles/Vol] 135 mmol/L Critically low 136-145 Th [facility] Comment on above: Performed By: #### C VDAGS #### [facility] [address] [place] [address] Dr. Leni Hamlin Urea nitrogen [Mass/Vol] 25.0 mg/dL Critically high 7.0-18.0 [facility] Comment on above: Performed By: #### C VDAGS #### [facility] [address] [place] [address] Dr. Leni Hamlin Urea nitrogen/Creatinine [Mass ratio] 13.4 mg/mg Normal [facility] Comment on above: Performed By: #### C VDAGS #### [facility] [address] [place] [address] Dr. Leni Hamlin Anion gap [Moles/Vol] 10.7 mmol/L Normal [facility] Comment on above: Performed By: #### B MP, BNP #### [facility] [address] [place] [address] Dr. Leni Hamlin Calcium [Mass/Vol] 8.2 mg/dL Critically low 8.5-10.1 [facility] Comment on above: Performed By: #### B MP, BNP #### [facility] [address] [place] [address] Dr. Leni Hamlin Chloride [Moles/Vol] 101 mmol/L Normal 98-107 [facility] Comment on above: Performed By: #### B MP, BNP #### [facility] [address] [address] [address] Leni Hamlin CO2 [Moles/Vol] 30.0 mmol/L Normal 21.0-32.0 [facility] Comment on above: Performed By: #### B MP, BNP #### [facility] [address] [address] [address] Leni Hamlin Creatinine [Mass/Vol] 1.49 mg/dL Critically high 0.70-1.30 [facility] Comment on above: Performed By: #### B MP, BNP #### [facility] [address] [place] [address] Dr. Leni Hamlin EGFR-AF UGANDAN 56 mL/min/1.73m2 Critically low >=60 [facility] Comment on above: Performed By: #### B MP, BNP #### [facility] [address] [place] [address] Dr. Leni Hamlin EGFR-NON AF UGANDAN 46 mL/min/1.73m2 Critically low >=60 [facility] Comment on above: Performed By: #### B MP, BNP #### [facility] [address] [place] [address] Dr. Leni Hamlin Glucose [Mass/Vol] 158 mg/dL Critically high 74-106 [facility] Comment on above: Performed By: #### B MP, BNP #### [facility] [address] [place] [address] Dr. Leni Hamlin Potassium [Moles/Vol] 5.7 mmol/L Critically high 3.5-5.1 [facility] Comment on above: Performed By: #### B MP, BNP #### [facility] [address] [place] [address] Dr. Leni Hamlin Sodium [Moles/Vol] 136 mmol/L Normal 136-145 [facility] Comment on above: Performed By: #### B MP, BNP #### [facility] [address] [place] [address] Dr. Leni Hamlin Urea nitrogen [Mass/Vol] 19.0 mg/dL Critically high 7.0-18.0 [facility] Comment on above: Performed By: #### B MP, BNP #### [facility] [address] [place] [address] Dr. Leni Hamlin Urea nitrogen/Creatinine [Mass ratio] 12.8 mg/mg Normal [facility] Comment on above: Performed By: #### B MP, BNP #### [facility] [address] [place] [address] Dr. Leni Hamlin BNPon 03-12-2022 Natriuretic peptide B (Bld) [Mass/Vol] 405.0 pg/mL Normal <=900.0 [facility] Comment on above: Performed By: #### B MP, BNP #### [facility] [address] [place] [address] Dr. Leni Hamlin CBC AUTO DIFFon 03-12-2022 BASO # 0.1 103/ul Normal 0.0-0.1 [facility] Comment on above: Performed By: #### C BC #### [facility] [address] [place] [address] Dr. Leni Hamlin Basophils/100 WBC (Bld) 0.3 % Normal 0.2-2.0 [facility] Comment on above: Performed By: #### C BC #### [facility] [address] [place] [address] Dr. Leni Hamlin EO # 0.0 103/ul Normal 0.0-0.7 [facility] Comment on above: Performed By: #### C BC #### [facility] [address] [place] [address] Dr. Leni Hamlin Eosinophils/100 WBC (Bld) 0.1 % Critically low 0.9-7.0 [facility] Comment on above: Performed By: #### C BC #### [facility] [address] [place] [address] Dr. Leni Hamlin Erythrocyte distribution width (RBC) [Ratio] 13.3 % Normal 11.0-15.0 [facility] Comment on above: Performed By: #### C BC #### [facility] [address] [address] [address] Leni Hamlin Hematocrit (Bld) [Volume fraction] 52.2 % Normal 42.0-54.0 [facility] Comment on above: Performed By: #### C BC #### [facility] [address] [address] [address] Leni Hamlin Hemoglobin (Bld) [Mass/Vol] 16.5 g/dL Normal 14.0-18.0 [facility] Comment on above: Performed By: #### C BC #### [facility] [address] [address] [address] Leni Hamlin IG # 0.19 10e3/ul Critically high 0.00-0.03 [facility] Comment on above: Performed By: #### C BC #### [facility] [address] [address] [address] Leni Hamlin IG % 1.0 % Critically high 0.0-0.5 [facility] Comment on above: Performed By: #### C BC #### [facility] [address] [address] [address] Leni Hamlin LYMPH # 0.8 103/ul Critically low 1.2-3.8 [facility] Comment on above: Performed By: #### C BC #### [facility] [address] [address] [address] Leni Hamlin Lymphocytes/100 WBC (Bld) 3.8 % Critically low 20.5-60.0 [facility] Comment on above: Performed By: #### C BC #### [facility] [address] [address] [address] Leni Hamlin MANUAL DIFF REQ NO Normal [facility] Comment on above: Performed By: #### C BC #### [facility] [address] [place] [address] Dr. Leni Hamlin MCH (RBC) [Entitic mass] 29.6 pg Normal 25.9-34.0 [facility] Comment on above: Performed By: #### C BC #### [facility] [address] [address] [address] Leni Hamlin MCHC (RBC) [Mass/Vol] 31.6 g/dL Normal 29.9-35.2 [facility] Comment on above: Performed By: #### C BC #### [facility] [address] [address] [address] Leni Hamlin MCV (RBC) [Entitic vol] 93.7 fL Normal 80.0-94.0 [facility] Comment on above: Performed By: #### C BC #### [facility] [address] [address] [address] Leni Hamlin MONO # 1.6 103/ul Critically high 0.3-0.8 [facility] Comment on above: Performed By: #### C BC #### [facility] [address] [place] [address] Dr. Leni Hamlin Monocytes/100 WBC (Bld) 8.3 % Normal 1.7-12.0 [facility] Comment on above: Performed By: #### C BC #### [facility] [address] [address] [address] Leni Hamlin NEUT # 17.0 103/ul Critically high 1.4-6.5 [facility] Comment on above: Performed By: #### C BC #### [facility] [address] [address] [address] Leni Hamlin Neutrophils/100 WBC (Bld) 86.5 % Critically high 43.0-75.0 [facility] Comment on above: Performed By: #### C BC #### [facility] [address] [address] [address] Leni Hamlin Platelet mean volume (Bld) [Entitic vol] 10.0 fL Normal 9.5-13.5 [facility] Comment on above: Performed By: #### C BC #### [facility] [address] [address] [address] Leni Hamlin PLT 194 103/ul Normal 150-450 [facility] Comment on above: Performed By: #### C BC #### [facility] [address] [place], [place] [address] Dr. Leni Hamlin RBC 5.57 106/ul Normal 4.70-6.10 [facility] Comment on above: Performed By: #### C BC #### [facility] [address] [place], [place] [address] Dr. Leni Hamlin WBC 19.7 103/ul Critically high 4.0-11.0 [facility] Comment on above: Performed By: #### C BC #### [facility] [address] [place], [place] [address] CSPINE WO CONon [...] CIERA HERNÁNDEZ Date: 2022-03-12 13:42 Normal [facility] CT HEAD WO CONon 03-12-2022 CT [...] SUSAN KC Date: 2022-03-12 13:20 Normal [facility] CTA CHEST WO W CONon 022 [...] CIERA HERNÁNDEZ Date: 2022-03-12 14:46 Normal [facility] CULTURE BLOODon 03-12-2022 Microscopic examination of blood, culture Culture Observations: NO GROWTH AT 5 DAYS. Normal [facility] Comment on above: Performed By: #### C MP, CRP #### [facility] [address] [place] [address] Dr. Leni Hamlin Microscopic examination of blood, culture Culture Observations: NO GROWTH AT 5 DAYS. Normal [facility] Comment on above: Performed By: #### C MP, CRP #### [facility] [address] [place] [address] [id number] [address] Leni Hamlin Covid-19 PCR ([facility])on SARS-CoV-2 (COVID-19) RNA VENESSA+probe Ql (Unsp spec) Not detected Normal NOT DETECTED [facility] Comment on above: Result Comment: When diagnostic testing is negative, the possibility of a false negative should be considered in the context of a patient's recent exposures and the presence of clinical signs and symptoms consistent with SARS-CoV-2. This test is not yet approved or cleared by the [place] Food and Drug Administration (FDA). This test was developed by [employer], [place]. The performance characteristics of this test were validated by [facility]. The results are not intended to be used as the sole means for clinical diagnosis or patient management decisions. The [facility] is authorized under Clinical Laboratory Improvement [...] for this test is supported by the Petroleum Analyst of Health and Human Service's declaration that [...] used). Performed By: #### C RP #### [facility] [address] [place] [address] [id number] [address] Leni Hamlin D-DIMERon 03-12-2022 D-DIMER 6.00 mg/L FEU Critically high 0.19-0.50 [facility] Comment on above: Performed By: #### B MP, BNP #### [facility] [address] [place] [address] Dr. Leni Hamlin D-DIMER COMMENTS SEE BELOW Normal [facility] Comment on above: Result Comment: Incr [...] Performed By: #### B MP, BNP #### [facility] [address] [place] [address] Dr. Leni Hamlin ER URINE PROFILEon 2 Bilirubin Ql (U) Negative Normal NEGATIVE [facility] Comment on above: Performed By: #### C RP #### [facility] [address] [place] [address] Dr. Leni Hamlin Clarity (U) CLEAR Normal CLEAR [facility] Comment on above: Performed By: #### C RP #### [facility] [address] [place] [address] Dr. Leni Hamlin Color (U) YELLOW Normal YELLOW [facility] Comment on above: Performed By: #### C RP #### [facility] [address] [place] [address] Dr. Leni ELLIS A micrscopic examination will be performed if indicated. Normal [facility] Comment on above: Performed By: #### C RP #### [facility] [address] [place] [address] Dr. Leni Hamlin Glucose Ql (U) Negative Normal NEGATIVE [facility] Comment on above: Performed By: #### C RP #### [facility] [address] [place] [address] Dr. Leni Hamlin Hemoglobin Ql (U) SMALL Abnormal NEGATIVE [facility] Comment on above: Performed By: #### C RP #### [facility] [address] [place] [address] Dr. Leni Hamlin Ketones Ql (U) Negative Normal NEGATIVE [facility] Comment on above: Performed By: #### C RP #### [facility] [address] [place] [address] Dr. Leni Hamlin LEUKOCYTES Negative Normal NEGATIVE [facility] Comment on above: Performed By: #### C RP #### [facility] [address] [place] [address] Dr. Leni Hamlin Nitrite Ql (U) Negative Normal NEGATIVE [facility] Comment on above: Performed By: #### C RP #### [facility] [address] [place] [address] Dr. Leni Hamlin pH (U) 5.5 [pH] Normal 5-9 [facility] Comment on above: Performed By: #### C RP #### [facility] [address] [place] [address] Dr. Leni Hamlin SPEC GRAVITY <=1.005 Abnormal 1.005-<=1.025 [facility] Comment on above: Performed By: #### C RP #### [facility] [address] [place] [address] Dr. Leni Hamlin UA PROTEIN >300 Abnormal NEGATIVE/ TRACE [facility] Comment on above: Performed By: #### C RP #### [facility] [address] [place] [address] Dr. Leni Hamlin UR MICRO IND INDICATED Normal [facility] Comment on above: Performed By: #### C RP #### [facility] [address] [place] [address] Dr. Leni Hamlin Urobilinogen Qn (U) 0.2 {Stacy'U}/dL Normal 0.2 - 1. 0 [facility] Comment on above: Performed By: #### C RP #### [facility] [address] [place] [address] Dr. Leni Hamlin LACTATE/LACTIC ACIDon 2021 Lactate [Moles/Vol] 0.5 mmol/L Normal 0.4-2.0 [facility] Comment on above: Performed By: #### B MP, BNP #### [facility] [address] [place] [address] Dr. Leni Hamlin Lactate [Moles/Vol] 1.6 mmol/L Normal 0.4-2.0 [facility] Comment on above: Performed By: #### L ACT #### [facility] [address] [place] [address] Dr. Leni Hamlin PROF 14(COMP METB)on 022 Albumin [Mass/Vol] 3.1 g/dL Critically low 3.4-5.0 [facility] Comment on above: Performed By: #### B MP, BNP #### [facility] [address] [place] [address] Dr. Leni Hamlin Albumin/Globulin [Mass ratio] 0.8 {ratio} Normal [facility] Comment on above: Performed By: #### B MP, BNP #### [facility] [address] [place] [address] Dr. Leni Hamlin ALP [Catalytic activity/Vol] 52 U/L Normal 46-116 [facility] Comment on above: Performed By: #### B MP, BNP #### [facility] [address] [place] [address] Dr. Leni Hamlin ALT [Catalytic activity/Vol] 27 U/L Normal 16-63 [facility] Comment on above: Performed By: #### B MP, BNP #### [facility] [address] [place] [address] Dr. Leni Hamlin Anion gap [Moles/Vol] 12.9 mmol/L Normal [facility] Comment on above: Performed By: #### B MP, BNP #### [facility] [address] [place] [address] Dr. Leni Hamlin AST [Catalytic activity/Vol] 14 U/L Critically low 15-37 [facility] Comment on above: Performed By: #### B MP, BNP #### [facility] [address] [place] [address] Dr. Leni Hamlin Bilirubin [Mass/Vol] 1.2 mg/dL Critically high 0.2-1.0 [facility] Comment on above: Performed By: #### B MP, BNP #### [facility] [address] [place] [address] Dr. Leni Hamlin Calcium [Mass/Vol] 8.2 mg/dL Critically low 8.5-10.1 [facility] Comment on above: Performed By: #### B MP, BNP #### [facility] [address] [address] [address] Leni Hamlin Chloride [Moles/Vol] 99 mmol/L Normal 98-107 [facility] Comment on above: Performed By: #### B MP, BNP #### [facility] [address] [place] [address] Dr. Leni Hamlin CO2 [Moles/Vol] 28.4 mmol/L Normal 21.0-32.0 [facility] Comment on above: Performed By: #### B MP, BNP #### [facility] [address] [place] [address] Dr. Leni Hamlin Creatinine [Mass/Vol] 1.44 mg/dL Critically high 0.70-1.30 [facility] Comment on above: Performed By: #### B MP, BNP #### [facility] [address] [place] [address] Dr. Leni Hamlin EGFR-AF UGANDAN 58 mL/min/1.73m2 Critically low >=60 [facility] Comment on above: Performed By: #### B MP, BNP #### [facility] [address] [place] [address] Dr. Leni Hamlin EGFR-NON AF UGANDAN 48 mL/min/1.73m2 Critically low >=60 [facility] Comment on above: Performed By: #### B MP, BNP #### [facility] [address] [place] [address] Dr. Leni Hamlin Globulin (S) [Mass/Vol] 3.8 g/dL Normal [facility] Comment on above: Performed By: #### B MP, BNP #### [facility] [address] [place] [address] Dr. Leni Hamlin Glucose [Mass/Vol] 137 mg/dL Critically high 74-106 [facility] Comment on above: Performed By: #### B MP, BNP #### [facility] [address] [place] [address] Dr. Leni Hamiln Potassium [Moles/Vol] 4.3 mmol/L Normal 3.5-5.1 [facility] Comment on above: Performed By: #### B MP, BNP #### [facility] [address] [place] [address] Dr. Leni Hamlin Protein [Mass/Vol] 6.9 g/dL Normal 6.1-8.2 [facility] Comment on above: Performed By: #### B MP, BNP #### [facility] [address] [place] [address] Dr. Leni Hamlin Sodium [Moles/Vol] 136 mmol/L Normal 136-145 [facility] Comment on above: Performed By: #### B MP, BNP #### [facility] [address] [place] [address] Dr. Leni Hamlin Urea nitrogen [Mass/Vol] 15.0 mg/dL Normal 7.0-18.0 [facility] Comment on above: Performed By: #### B MP, BNP #### [facility] [address] [place] [address] Dr. Leni Hamlin Urea nitrogen/Creatinine [Mass ratio] 10.4 mg/mg Normal [facility] Comment on above: Performed By: #### B MP, BNP #### [facility] [address] [place] [address] Dr. Leni Hamlin PROTIMEon 03-12-2022 INR Coag (PPP) [Relative time] 1.07 {INR} Normal [facility] Comment on above: Performed By: #### B MP, BNP #### [facility] [address] [place] [address] Dr. Leni Hamlin INR GUIDELINES SEE BELOW Normal [facility] Comment on above: Result Comment: WAQAS RED INR: 2.0 - 3.0 CONDITIONS NOT LISTED BELOW 2.5 - 3.5 FOR PROSTHETIC HEART VALVE REPLACEMENT 2.5 - 3.5 RECURRENT THROMBOSIS Performed By: #### B MP, BNP #### [facility] [address] [place] [address] Dr. Leni Hamlin PT Coag (PPP) [Time] 11.5 s Normal 9.0-11.6 [facility] Comment on above: Performed By: #### B MP, BNP #### [facility] [address] [place] [address] Dr. Leni Hamlin TROPONIN, HIGH SENSITIVITYon 03-12-2022 HSTROP 12.8 pg/mL Normal 4.0-76.1 [facility] Comment on above: Result Comment: CUT- OFF POINTS HAVE BEEN ESTABLISHED BASED ON THE FOURTH UNIVERSAL DEFINITIONS OF MYOCARDIAL INFARCTION. THE UPPER REFERENCE LIMIT (URL) OF TROPONIN, DEFINED THE 99TH PERCENTILE OF cTnI DISTRIBUTION IN A REFERENCE POPULATION, HAS BEEN CONFIRMED THE DECISION THRESHOLD FOR RI DIAGNOSIS. Performed By: #### B MP, BNP #### [facility] [address] [place] [address] Dr. Leni Hamlin URINE MICROSCOPIC ONLYon BACTERIA NONE SEEN Normal NONE SEEN [facility] Comment on above: Performed By: #### C RP #### [facility] [address] [place] [address] Dr. Leni Hamlin Bacteria identified Cx Nom (U) NOT INDICATED Normal [facility] Comment on above: Performed By: #### C RP #### [facility] [address] [place] [address] Dr. Leni Hamlin CAST NONE SEEN Normal NONE SEEN [facility] Comment on above: Performed By: #### C RP #### [facility] [address] [place] [address] Dr. Leni Hamlin Crystals LM Nom (Urine sed) NONE SEEN Normal NONE SEEN [facility] Comment on above: Performed By: #### C RP #### [facility] [address] [place] [address] Dr. Leni Hamlin Epithelial cells LM Ql (Urine sed) NONE SEEN Normal NONE SEEN /RARE [facility] Comment on above: Performed By: #### C RP #### [facility] [address] [place] [address] Dr. Leni Hamlin MUCOUS MODERATE Abnormal NONE SEEN [facility] Comment on above: Performed By: #### C RP #### [facility] [address] [place] [address] Dr. Leni Hamlin RBC 2-5 Abnormal 0-2 [facility] Comment on above: Performed By: #### C RP #### [facility] [address] [address] [address] Leni Hamlin WBC NONE SEEN Normal NONE SEEN [facility] Comment on above: Performed By: #### C RP #### [facility] [address] [address] [address] Leni Hamlin XR RIBS RT PA [...] CIERA HERNÁNDEZ Date: 2022-03-12 13:35 Normal [facility] Covid-19 PCR (CVD[facility])on 01-09 SARS-CoV-2 (COVID-19) RNA VENESSA+probe Ql (Unsp spec) Not detected Normal NOT DETECTED [facility] Comment on above: Result Comment: This test is not yet approved or cleared by the [place] FDA. When there are no FDA-approved or cleared tests available, and other criteria are met, FDA can make tests available under an emergency access mechanism called an Emergency Use Authorization (EUA). The EUA for this test is supported by the Petroleum Analyst of Health and Human Service's (HHS's) declaration [...] SARS-CoV-2. Performed By: #### C RP #### [facility] [address] [place] [address] Dr. Leni Hamlin INFLUENZA A AND B AGon 01-25 [facility] SEE BELOW Normal [facility] Comment on above: Result Comment: Nega tive for Flu A protein angiten. Infection due to Flu A cannot be ruled out. Flu A angiten in the sample may be below the detection limit of the test. Performed By: #### C RP #### [facility] [address] [place] [address] Dr. Leni Hamlin [facility] SEE BELOW Normal [facility] Comment on above: Result Comment: Nega tive for Flu B protein antigen. Infection due to Flu B cannot be ruled out. Flu B antigen in the sample may be below the detection limit of the test. Performed By: #### C RP #### [facility] [address] [place] [address] Dr. Leni Hamlin INFLUENZA A AG Negative Normal NEGATIVE SEE COMMENT [facility] Comment on above: Performed By: #### C RP #### [facility] [address] [place] [address] Dr. Leni Hamlin INFLUENZA B AG Negative Normal NEGATIVE SEE COMMENT [facility] Comment on above: Performed By: #### C RP #### [facility] Laboratory [address] [place] [address] Dr. Leni Hamlin INTERNAL CONTROLS Within Normal Limits Normal Wi thin Normal Limits The [facility] Comment on above: Performed By: #### C RP #### [facility] Laboratory [address] [place] [address] Dr. Leni Hamlin COVID-19 Antigenon 2 COVID-19 [...] Cindy SARS Antigen JENNIFER does not differentiate Icndy Disclaimer between SARS-CoV and SARS-CoV-2. COVID19 Blank Space Cindy Disclaimer This test was developed and its performance Cindy Disclaimer characteristic determined by [employer] and Cindy Disclaimer validated at [facility]. This Cindy Disclaimer test has not [...] is terminated or revoked sooner. PERFORMED BY: [place] [id number] PATHOLOGIST FIXTURE MAKER ZOHAIB JEWELL M.D. Normal [facility] Comment on above: Performed By: #### C OVID-19 CINDY, SOFIANEG #### [place] [id number] [facility] Cindy Ag Negativeon 12-01-19 Cindy Ag Negative Negative Normal Negative [facility] Comment on above: Result Comment: This is a duplicate Cindy SARS Antigen (JENNIFER) result to be used for statistical tracking purpose only. PERFORMED BY: [place] [id number] PATHOLOGIST FIXTURE MAKER ZOHAIB JEWELL M.D. Performed By: #### C OVID-19 CINDY, SOFIANEG #### [facility] [address] [place], [place] [id number] [facility] Encounters Encounter Date Encounter Type Care Provider Facility Start: 03-02-2024 End: 03-03-2024 ambulatory Urvashi Rawls MD Facility:[facility] Start: 02-26-2024 End: 02-26-2024 ambulatory MODESTO BECERRA [facility] Start: 01-31-2024 End: 01-31-2024 ambulatory MAJOR BERRYLI [facility] Start: 01-27-2024 End: 01-28-2024 ambulatory Urvashi Rawls MD Facility:[facility] Start: 12-30-2023 End: 12-31-2023 ambulatory Urvashi Stitis Facility:[facility] Start: 09-16-2023 End: 09-17-2023 ambulatory Urvashi Rawls MD Facility:[facility] Start: 08-27-2023 End: 08-27-2023 ambulatory [facility] Start: 07-09-2023 End: 07-09-2023 ambulatory [facility] Start: 06-24-2023 End: 06-25-2023 ambulatory Urvashi Stitis Facility:[facility] Start: 06-10-2023 End: 06-11-2023 ambulatory Urvashi Stitis Facility:[facility] Start: 05-27-2023 End: 05-28-2023 ambulatory Urvashi Rawls MD Facility: [facility] Start: 05-13-2023 End: 05-13-2023 ambulatory [facility] Start: 05-08-2023 ambulatory [facility] Start: 04-09-2023 End: 04-09-2023 ambulatory [facility] Start: 03-29-2023 End: 03-30-2023 ambulatory [facility] Start: 03-26-2023 End: 03-27-2023 ambulatory [facility] Start: 03-26-2023 End: 03-26-2023 ambulatory [facility] Start: 03-15-2023 End: 03-16-2023 ambulatory [facility] Start: 02-27-2023 End: 02-28-2023 ambulatory ELLIOT Maximino [facility] Start: 01-16-2023 End: 01-16-[address] [...] Start: 03-22-2022 End: 03-23-2022 ambulatory MODESTO BECERRA Facility:[facility] Start: 03-20-2022 End: 03-21-[address] ELLIOT CHESTER . Facility:[facility] Start: 03-13-2022 End: 03-15-2022 Evaluation and management of inpatient DR ELLIOT CHESTER . Facility:[facility] Start: 01-25-2022 End: 01-25-2022 ambulatory GAGANDEEP PAREDES Facility: Payers Date Payer Category Payer Medicare 2022 Unknown 1961 Medicare [id number] 1961 Self-pay 1959 Unknown [id number] 1950 Unknown [id number] 2.16.8 [id number] 1950 Unknown [id number] 2.16.84 0.1.999905.3.579.2.593 1950 Unknown [id number] 2.16.84 0.1.874855.3.579.2.593 1948 Unknown [id number] 2.16.84 0.1.856434.3.579.2.593 1948 Unknown [id number] 2.16.84 0.1.079483.3.579.2.593 1948 Unknown [id number] 2.16.84 0.1.807711.3.579.2.593 1948 Unknown [id number] 2.16.84 0.1.030413.3.579.2.593 1948 Unknown [id number] 2.16.84 0.1.039505.3.579.2.593 1948 Unknown [id number] 2.16.84 0.1.689649.3.579.2.593 1948 Unknown [id number] 2.16.84 0.1.077879.3.579.2.593 1948 Unknown [id number] 2.16.84 0.1.959515.3.579.2.593 1948 Unknown [id number] 2.16.84 0.1.836306.3.579.2.593 1948 Unknown [id number] 2.16.84 0.1.295834.3.579.2.593 1948 Unknown [id number] 2.16.84 0.1.511331.3.579.2.593 1948 Unknown [id number] 2.16. 840.1.936840.3.579.2.196 1948 Unknown [id number] 2.16. 840.1.809547.3.579.2. 1948 Unknown [id number] 2.16. 840.1.518678.3.579.2.196 1948 Unknown [id number] 2.16. 840.1.492662.3.579.2. 1948 Unknown [id number] 2.16. 840.1.232468.3.579.2.196 1948 Unknown [id number] 2.16. 840.1.048685.3.579.2.196 1950 Unknown [id number] 2.16. 840.1.323975.3.579.2.196 Progress note 01-31-2024 Note Date & Type [...] Says he's not taking atorvastatin because his detective bureau chief told him it was not good for his kidneys. Review of Systems Constitutional: Positive for malaise/fatigue. Cardiovascular: Positive for claudication. Musculoskeletal: Positive for arthritis, back pain, joint pain, muscle weakness and myalgias. All other systems reviewed and are negative. [facility] Progress note 08-27-2023 Note Date & [...] for a [address] [facility]. Lipid profile was done in May 2023. [facility] Progress note 08-27-2023 Note Date & Type Note Facility 08-27-2023 Note [place] [facility] Reason for visit: follow up for [...] was initiated by the patient and conducted [id number] with use of audio-only real time telephone [...] since his prost (more content not included)... [facility] Progress note 05-13-2023 Note Date & Type Note Facility 05-13-2023 Note [place] [facility] Reason for visit: lower extremity claudication [...] was initiated by the patient and conducted [id number] with use of audio-only real time telephone [...] night many times (more content not included)... [facility] Progress note 05-13-2023 Note Date & Type Note Facility 05-13-2023 Note Patient here c/o LE numbness and pain during ambulation and standing. He had EMG and SAGAR's in March 2023. He sees Dr. Chester this afternoon. Recently saw neurosurgery and vascular surgery at [facility]. Dr. Quinonez started him on low dose aspirin and atorvastatin last week, which he states he has not started yet. He denies chest pain, SOB, and syncope. Review of Systems Constitutional: Positive for malaise/fatigue. Cardiovascular: Positive for claudication and leg swelling. Musculoskeletal: Positive for arthritis, back pain, muscle weakness and myalgias. All other systems reviewed and are negative. [facility] Progress note 05-08-2023 Note Date & [...] will see him in about 3 months. [facility] Progress note 05-08-2023 Note Date & [...] being on aspirin (more content not included)... 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 He undertook some type of [...] Final Atrial Rate 03/22/2022 76 BPM Final CO Interval 03/22/2022 162 ms Final QRS DURATION 03/22/2022 144 ms Final QT Interval 03/22/2022 392 ms Final QTC CALCULATION(BAZETT) 03/22/2022 441 ms Final P [place] 03/22/2022 -14 degrees Final R-[place] 03/22/2022 -20 degrees Final T Wave [place] 03/22/2022 -6 degrees Final Diagnosis 03/22/2022 Final [...] No definite e (more content not included)... 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 He undertook some type of [...] Value Ref Range (more content not included)... [facility] Clinical Note 03-23-2022 Note Date & [...] authenticated by: ALONSO MASON Date: 2022-03-23 12:58 [facility] Summary Purpose Family History No Family [...] DATE CREATED AUTHOR 01/29/2022 [facility] DATE CREATED AUTHOR AUTHOR'S ORGANIZ ATION 04/23/2022 [facility] DATE CREATED AUTHOR AUTHOR'S ORGANIZ ATION 01/18/2023 [facility] DATE CREATED AUTHOR AUTHOR'S ORGANIZ ATION 02/27/2024 [facility] DATE CREATED AUTHOR AUTHOR'S ORGANIZ ATION 03/05/2024 [facility] FOR RECORDS PERTAINING TO PATIENTS [...] BE BASED ON THE PRIMARY CLINICAL RECORDS. [employer] [facility]. provides no warranty or guarantee of the accuracy or completeness of information in this document.
[2024-03-07 12:59] LABS: Lactate/Lactic Acid 2.4 mmol/L (0.4-2.0)
[2024-03-07 13:34] LABS: Bilirubin Urine NEGATIVE (NEGATIVE); Blood Urine SMALL (NEGATIVE); Clarity Urine CLEAR (CLEAR); Color Urine YELLOW (YELLOW); Glucose Urine UA NEGATIVE (NEGATIVE); Ketones Urine NEGATIVE (NEGATIVE); Leukocyte Esterase Urine NEGATIVE (NEGATIVE); Nitrite Urine NEGATIVE (NEGATIVE); Protein Urine >=300 mg/dL (NEG/TRACE); Specific Gravity Urine 1.015 (1.005-1.025); pH Urine 5.5 (5.0-9.0)
[2024-03-07 13:38] LABS: Urine Microscopic Indicated YES
[2024-03-07] MEDS: METHYLPREDNISOLONE SOD SUCC PF 125 MG/2 ML VIAL IVP ×2 (13:41→20:37)
[2024-03-07] MEDS: GABAPENTIN 100 MG CAPSULE PO (13:41)
[2024-03-07] MEDS: LACTATED RINGER'S SOLUTION 1,000 ML 100 ML IV ×2 (13:41→21:51)
[2024-03-07 13:42] LABS: Bacteria Urine TRACE #/HPF (NONE SEEN); Mucus Urine NONE SEEN (NONE SEEN); Squamous Epithelial Cell Urine RARE #/LPF (NONE/RARE); WBC Urine 0-2 #/HPF (NONE SEEN)
[2024-03-07 13:43] LABS: Cast Seen? SEEN #/LPF (NONE SEEN); Crystals Seen? None Seen #/HPF (None Seen); Hyaline Casts Urine RARE; Urine Culture Indicated NO
--- NOTE | 2024-03-07 14:15 | PC.NURSE ---
Danica WINSTON notified pt is having multiple runs of trigeminal PVC's on telemetry, copy of strip placed in chart
--- NOTE | 2024-03-07 15:13 | ECG_ITS ---
The [facility] Test Date: 2024-03-07 Pat Name: MOUSTAPHA MAC Department: Room: 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
--- NOTE | 2024-03-07 15:46 | PC.NURSE ---
[employer]utive [employer] Host Asha interrogating pacemaker at bedside. Pt tolerating well with no issues. Does have occasional harsh cough
[2024-03-07 15:55] LABS: Lactate/Lactic Acid 1.9 mmol/L (0.4-2.0); Troponin I High Sensitivity 37.6 pg/mL (4.0-76.1)
[2024-03-07] MEDS: IPRATROPIUM/ALBUTEROL SULFATE 3 ML AMPUL.NEB IH ×2 (17:09→22:31)
[2024-03-07 19:06] LABS: Troponin I High Sensitivity 36.4 pg/mL (4.0-76.1)
[2024-03-07] MEDS: ENSURE CLEAR 237 ML LIQUID PO (20:37)
[2024-03-07] MEDS: GABAPENTIN 300 MG CAPSULE PO (21:51)
[2024-03-07] MEDS: TIZANIDINE HCL 4 MG TABLET 8 MG PO (21:51)
[2024-03-07 22:04] LABS: Troponin I High Sensitivity 31.1 pg/mL (4.0-76.1)
[2024-03-08] VITALS (23 sets, daily range): BP systolic 109–142; BP diastolic 55–79; PULSE 62–100; TEMP 36.4–37.2; O2SAT 88–96
[2024-03-08] MEDS: METHYLPREDNISOLONE SOD SUCC PF 125 MG/2 ML VIAL IVP ×2 (02:04→07:39)
[2024-03-08] MEDS: PIPERACILLIN SODIUM/TAZOBACTAM 3.375 GM in 0.9 % SODIUM CHLORIDE 50 ML IV ×3 (03:48→20:37)
[2024-03-08 05:36] LABS: Basophils Percent Auto 0.1 % (0.2-2.0); Hematocrit 44.2 % (42.0-54.0); Hemoglobin 13.4 g/dL (14.0-18.0); Immature Granulocytes Abs Auto 0.05 10^3/uL (0.00-0.03); Immature Granulocytes Pct Auto 0.5 % (0.0-0.5); Lymphocytes Absolute Auto 0.5 10^3/uL (1.2-3.8); Lymphocytes Percent Auto 5.3 % (20.5-60.0); Mean Corpuscular HGB Conc 30.3 g/dL (29.9-35.2); Mean Corpuscular Hemoglobin 29.1 pg (25.9-34.0); Mean Corpuscular Volume 96.1 fL (80.0-94.0); Mean Platelet Volume 10.7 fL (9.5-13.5); Monocytes Absolute Auto 0.7 10^3/uL (0.3-0.8); Monocytes Percent Auto 7.1 % (1.7-12.0); Neutrophils Absolute Auto 8.1 10^3/uL (1.4-6.5); Platelet Count 148 10^3/uL (150-450); Red Cell Distribution Width 13.7 % (11.0-15.0); White Blood Count 9.4 10^3/uL (4.0-11.0)
[2024-03-08] MEDS: IPRATROPIUM/ALBUTEROL SULFATE 3 ML AMPUL.NEB IH ×4 (05:39→23:40)
[2024-03-08 05:43] LABS: Alanine Aminotransferase 16 U/L (16-63); Albumin Globulin Ratio 0.6; Albumin Level 2.4 g/dL (3.4-5.0); Alkaline Phosphatase 62 U/L (46-116); Anion Gap 13.1; Aspartate Amino Transferase 12 U/L (15-37); BUN Creatinine Ratio 15.4; Bilirubin Total 0.4 mg/dL (0.2-1.0); Calcium 9.1 mg/dL (8.5-10.1); Chloride 104 mmol/L (98-107); Estimated GFR (African America 43 (>=60); Estimated GFR (Non-African Ame 35 (>=60); Globulin 4.2 g/dL; Glucose 214 mg/dL (74-106); Potassium 4.1 mmol/L (3.5-5.1); Sodium 139 mmol/L (136-145); Total Protein 6.6 g/dL (6.4-8.2)
[2024-03-08] MEDS: GABAPENTIN 100 MG CAPSULE PO ×2 (05:44→14:16)
[2024-03-08 05:45] LABS: Magnesium 2.6 mg/dL (1.8-2.4)
[2024-03-08] MEDS: ENSURE CLEAR 237 ML LIQUID PO ×2 (08:27→20:37)
--- NOTE | 2024-03-08 10:04 | P.PN_ITS ---
Progress Note: Subjective Subjective Interval history: Patient appears to be much more comfortable with his breathing. No conversational dyspnea this morning. Still on supplemental oxygen at 1 L, that is down from his 5 L from starting out in the emergency room Exam Constitutional Vital Signs, click to edit/add: Last Vital Signs Temp 97.6 F 03/08/24 07:51 Pulse 81 03/08/24 08:00 Resp 20 03/08/24 07:51 BP 109/62 03/08/24 07:51 Pulse Ox 94 L 03/08/24 09:37 O2 Del Method Nasal Cannula 03/08/24 09:37 O2 Flow Rate 1 03/08/24 09:37 Documenting provider has reviewed patient's vital signs: yes Common normals: no apparent distress Exam limitations: no altered mental status Chest Common normals: inspection of chest normal Respiratory Common normals: normal respiratory effort, no retractions and no use of accessory muscles; not clear to ascultation bilaterally Auscultation: rhonchi (Right-sided with egophony has resolved) Cardio Common normals: regular rate, regular rhythm and no murmurs GI Common normals: Normal to inspection, nondistended, normoactive bowel sounds present Neuro Common normals: oriented x3, CN's II-XII intact bilaterally and moves all extremities Progress Note: Objective Labs Labs: Short CBC 03/07/24 03/08/24 Range/Units 10:06 04:43 WBC 15.7 H 9.4 (4.0-11.0) 10^3/uL Hgb 14.6 13.4 L (14.0-18.0) g/dL Hct 46.3 44.2 (42.0-54.0) % Plt Count 167 148 L (150-450) 10^3/uL BMP 03/07/24 03/08/24 10:06 04:43 Sodium 138 139 Potassium 4.8 4.1 Chloride 101 104 Carbon Dioxide 25.2 26.0 BUN 25.0 H 29.0 H Creatinine 1.75 H 1.88 H Glucose 114 H 214 H Calcium 8.9 9.1 Liver Function 03/07/24 03/08/24 Range/Units 10:06 04:43 Total Bilirubin 1.1 H 0.4 (0.2-1.0) mg/dL AST 16 12 L (15-37) U/L ALT 16 16 (16-63) U/L Alkaline Phosphatase 66 62 (46-116) U/L Albumin 2.8 L 2.4 L (3.4-5.0) g/dL Urine 03/07/24 Range/Units 13:20 Urine Color Yellow (YELLOW) Urine Clarity Clear (CLEAR) Urine pH 5.5 (5.0-9.0) Ur Specific [place] 1.015 (1.005-1.025) Urine Protein >=300 A (NEG/TRACE) mg/dL Urine Glucose (UA) Negative (NEGATIVE) mg/dL Progress Note: A&P Assessment and Plan (1) Community acquired pneumonia: Plan Admission findings : respiratory distress, respiratory acidosis, thrombocytopenia, severe hypoxia with O2 saturation of 81% on room air, lactic acidosis, leukocytosis secondary to right-sided pneumonia which has resulted in severe sepsis. Possible aspiration based on pattern. Will choose Zosyn for more aspiration coverage but add Zithromax for atypical coverage. Steroids he does have probably underlying COPD. Aerosol treatments frequently. Leukocytosis improving, will give fluid resuscitation more this morning. He has no peripheral edema, overall improved, but creatinine is higher Acute kidney injury. -Creatinine elevated today. Baseline creatinine 1.44, creatinine today 1.88, that is 131% above baseline Hyperglycemia-possibly yovmhkv-bjeolsz-zrtosti sliding scale Moderate protein calorie malnutrition-continue with diet supplementation Hypomagnesemia-monitor daily, likely related to his acute kidney injury Former smoker for 1 year-continue abstinence Ectopy noted on telemetry, it does appear to be where his pacemaker is firing. Appears to have a dual-chamber pacemaker that is a demand pacemaker. Low back pain-continue his home medications Admission status: Patient was started on outpatient antibiotics. Patient deteriorated overnight. With failed outpatient treatment, severe hypoxia on admission, sepsis, medically necessary treatment will span [address] patient in inpatient status ?
[2024-03-08] MEDS: 0.9 % SODIUM CHLORIDE 1,000 ML 500 ML IV (10:17)
[2024-03-08 11:46] LABS: Glucometer 278 mg/dL (74-106)
[2024-03-08] MEDS: INSULIN ASPART 300 UNIT/3 ML PEN SUBQ ×3 (11:55→21:42)
[2024-03-08] MEDS: METHYLPREDNISOLONE SOD SUCC PF 125 MG/2 ML VIAL 60 MG IVP ×2 (14:16→20:37)
[2024-03-08 16:13] LABS: Glucometer 221 mg/dL (74-106)
--- NOTE | 2024-03-08 17:10 | RESP.RT ---
titrated down to 1L
--- NOTE | 2024-03-08 17:12 | RESP.RT ---
titrated down to 1L
[2024-03-08] MEDS: LACTATED RINGER'S SOLUTION 1,000 ML 100 ML IV (18:06)
[2024-03-08 20:26] LABS: Glucometer 198 mg/dL (74-106)
[2024-03-08] MEDS: GABAPENTIN 300 MG CAPSULE PO (21:41)
[2024-03-08] MEDS: TIZANIDINE HCL 4 MG TABLET 8 MG PO (21:42)
[2024-03-09] VITALS (61 sets, daily range): BP systolic 102–170; BP diastolic 64–92; PULSE 64–134; TEMP 36.4–36.7; O2SAT 90–98
[2024-03-09] MEDS: METHYLPREDNISOLONE SOD SUCC PF 125 MG/2 ML VIAL 60 MG IVP (03:00)
[2024-03-09] MEDS: PIPERACILLIN SODIUM/TAZOBACTAM 3.375 GM in 0.9 % SODIUM CHLORIDE 50 ML IV ×3 (03:01→21:09)
[2024-03-09] MEDS: LACTATED RINGER'S SOLUTION 1,000 ML 100 ML IV (03:11)
[2024-03-09 04:48] LABS: Basophils Percent Auto 0.3 % (0.2-2.0); Hematocrit 41.5 % (42.0-54.0); Hemoglobin 12.8 g/dL (14.0-18.0); Immature Granulocytes Abs Auto 0.16 10^3/uL (0.00-0.03); Immature Granulocytes Pct Auto 1.4 % (0.0-0.5); Lymphocytes Absolute Auto 0.6 10^3/uL (1.2-3.8); Lymphocytes Percent Auto 4.9 % (20.5-60.0); Mean Corpuscular HGB Conc 30.8 g/dL (29.9-35.2); Mean Corpuscular Hemoglobin 29.2 pg (25.9-34.0); Mean Corpuscular Volume 94.5 fL (80.0-94.0); Mean Platelet Volume 10.9 fL (9.5-13.5); Monocytes Absolute Auto 0.7 10^3/uL (0.3-0.8); Monocytes Percent Auto 6.4 % (1.7-12.0); Neutrophils Absolute Auto 9.9 10^3/uL (1.4-6.5); Platelet Count 150 10^3/uL (150-450); Red Blood Count 4.39 10^6/uL (4.70-6.10); Red Cell Distribution Width 13.6 % (11.0-15.0); White Blood Count 11.3 10^3/uL (4.0-11.0)
[2024-03-09] MEDS: IPRATROPIUM/ALBUTEROL SULFATE 3 ML AMPUL.NEB IH (05:00)
[2024-03-09 05:04] LABS: Alanine Aminotransferase 21 U/L (16-63); Albumin Globulin Ratio 0.6; Albumin Level 2.2 g/dL (3.4-5.0); Alkaline Phosphatase 54 U/L (46-116); Aspartate Amino Transferase 15 U/L (15-37); BUN Creatinine Ratio 20.3; Bilirubin Total 0.3 mg/dL (0.2-1.0); Calcium 8.7 mg/dL (8.5-10.1); Carbon Dioxide 28.3 mmol/L (21.0-32.0); Chloride 105 mmol/L (98-107); Estimated GFR (African America 56 (>=60); Estimated GFR (Non-African Ame 46 (>=60); Globulin 3.8 g/dL; Glucose 171 mg/dL (74-106); Potassium 4.3 mmol/L (3.5-5.1); Sodium 140 mmol/L (136-145)
[2024-03-09] MEDS: GABAPENTIN 100 MG CAPSULE PO ×2 (05:29→14:09)
[2024-03-09 06:54] LABS: Magnesium 2.4 mg/dL (1.8-2.4)
--- NOTE | 2024-03-09 07:08 | ECG_ITS ---
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
[2024-03-09] MEDS: METOPROLOL TARTRATE 5 MG/5 ML VIAL IVP (07:15)
[2024-03-09 07:26] LABS: Glucometer 163 mg/dL (74-106)
--- NOTE | 2024-03-09 07:39 | CA_ITS ---
Patient Name: MOUSTAPHA MAC MR#: [id number] : 1950 Exam Date: 03/09/2024 Ordering Doctor: DR Jaron Chester . ECHOCARDIOGRAM REPORT PROCEDURE: CA ECHO DOPPLER COMPLETE INDICATIONS: A-fib, pacemaker, hypertension, former smoker, h/o prostate cancer COMPARISON: None. DESCRIPTION: COMPLETE ECHOCARDIOGRAM Real-time transthoracic echocardiography with 2D, M-mode, spectral and color flow Doppler performed. QUALITY: 68 , 218#, BSA 2.12 m2, BP 118/80 Technically difficult due to patient's condition. LEFT VENTRICLE: Normal chamber size. Thickened septal wall. LV EF: Global left ventricular systolic function is difficult to assess but appears preserved; visually estimated ejection fraction is 55 to 60%. Unable to assess regional wall motion abnormalities. Consider contrast study for better delineation of endocardial borders. DIASTOLIC: Unable to assess diastolic function. ATRIAL SEPTUM: Visually appears intact. LEFT ATRIUM: Normal chamber size. RIGHT ATRIUM: Mild dilatation. RIGHT VENTRICLE: Normal chamber size. Normal systolic function. Pacemaker wire is seen. TRICUSPID VALVE: Normal mobility and thickness. No stenosis with trivial regurgitation. Doppler studies reveal mildly (35-45) elevated right sided pressures. RVSP 44 mmHg MITRAL VALVE: Normal mobility and thickness. No evidence of mitral valve stenosis. There is no mitral annular calcification. No mitral regurgitation. AORTIC VALVE: Normal trileaflet appearance. No visible sclerosis. Normal leaflet mobility. No evidence of aortic valve stenosis. No aortic regurgitation. AORTIC ROOT: Normal diameter and appearance. PULMONIC VALVE: Normal thickness and mobility. No stenosis. Trivial regurgitation. PERICARDIUM: Anterior free space; trivial effusion versus fat pad. IVC: IVC is dilated (3.2 cm) with no collapse. CONCLUSION: 1. Global left ventricular systolic function is difficult to assess but appears preserved; visually estimated ejection fraction is 55 to 60% 2. The right ventricle is poorly seen but appears normal in size and systolic function 3. Right atrium is dilated 4. Valves are poorly seen; no significant valvular abnormalities 5. Mildly elevated right ventricular systolic pressure; RVSP 44 mmHg 6. Anterior free space; trivial effusion versus fat pad Adult Echocardiography Procedure Report Left Ventricle LVEDD (3.7 - 5.6 cm): 4.38 cm LVESD (2.2 - 4.0 cm): 3.19 cm LVIVS thickness (0.6 - 1.2 cm): 1.65 cm LVPW thickness (0.5 - 1.0 cm): 1.10 cm LVOT Max Gradient: 2.23 mm[Hg] LVOT Area (cm2): 0.75 m/s Peak Velocity (LVOT): 0.75 m/s LVOT Diameter 2.34 cm Left Atrium Left Atrium Systolic Dimension: 4.72 cm Mitral Valve MV E to A Ratio: 1.38 Mitral Valve A-Wave Peak Velocity: 0.43 m/s Mitral Valve E-Wave Peak Velocity: 0.60 m/s Right Ventricle Aorta AO Root Diam: 4.21 cm Ascending Ao Diam: 3.28 cm Aortic Valve AoV Area (Peak Ole): 3.61 cm2, 3.61 cm2 Peak Velocity(Antegrade Flow): 0.89 m/s Peak Gradient(Antegrade Flow): 3.14 mm[Hg] Tricuspid Valve Peak Velocity (Regurgitant Flow): 2.68 m/s Pulmonic Valve Peak Velocity: 0.72 m/s Peak Gradient: 2.06 mm[Hg] Right Atrium Right Atrium Systolic Pressure: 50.39 ml, 50.39 ml Dictated by: Adali Lai M.D. on 03/11/2024 at 15:34 Approved by: Adali Lai M.D. on 03/11/2024 at 15:38
--- NOTE | 2024-03-09 07:43 | XR_ITS ---
The [address] [address] Patient Name: MOUSTAPHA MAC MRN: [id number] date: 1950 Sex: M Assigned Patient Location: ICU Current Patient Location: ICU Accession/Order Number: [id number] Exam Date: 03/09/2024 08:00 Report Date: 03/09/2024 08:17 At the request of: ELLIOT DECKER Procedure: XR chest 1V EXAMINATION: XR chest 1V HISTORY: follow up pneumonia , chest tightness COMPARISON: XR chest 03/23/2022 FINDINGS: LUNGS: Mild patchy and strandy opacities scattered throughout the lungs bilaterally. VASCULATURE: No increased pulmonary vasculature. PLEURA: No pneumothorax, effusion, or pleural thickening. CARDIAC: No cardiomegaly or cardiac silhouette abnormality. MEDIASTINUM: No visible mass or adenopathy. BONES: No fracture or visible bone lesion. OTHER: Stable cardiac pacer. XR/XR chest 1V IMPRESSION: 1. Mild, diffuse bilateral pulmonary infiltrates versus atelectasis; new since prior study. Electronically authenticated by: CIERA HERNÁNDEZ Date: 03/09/2024 08:17
--- NOTE | 2024-03-09 07:43 | PC.NURSE ---
0657 RN received a call from Milagro WINSTON from ICU stating that the patient's telemetry showed A-fib RVR. Pt heart rate was irregular between 120s-143. RN went into room to check on the patient. He was coughing and flushed complaining of chest pain located in the center of his chest. HR 143, BP 149/82, SpO2 95% on 1 L NC. Pt stated he felt hot, temp was 98.9 Doctor notified and in pt room. Dr. Chester ordered 5mg IV Lopressor and a STAT EKG. Pt stated that the chest pain was beginning to resolve. He was then moved to ICU by wheelchair per physician orders. Report was given to Mae WINSTON. Pt in ICU room up in chair with call light in reach.
--- NOTE | 2024-03-09 07:44 | P.PN_ITS ---
Progress Note: Subjective Subjective Interval history: When I saw the patient up on the medical surgical floor, patient was experiencing some mild chest tightness, but significant tachycardia in the 140s. Monitor consistent with atrial fibrillation. Nurses gave 5 mg of Lopressor IV with improvement in his chest pressure and heart rate. Transferred back to the intensive care unit. Exam Constitutional Vital Signs, click to edit/add: Last Vital Signs Temp 97.6 F 03/09/24 03:18 Pulse 134 H 03/09/24 06:46 Resp 24 H 03/09/24 05:00 BP 170/80 H 03/09/24 03:18 Pulse Ox 92 L 03/09/24 05:00 O2 Del Method Nasal Cannula 03/09/24 05:00 O2 Flow Rate 1 03/09/24 05:00 Documenting provider has reviewed patient's vital signs: yes Common normals: apparent distress (Moderate distress secondary to the tachycardia) Chest Common normals: inspection of chest normal Respiratory Common normals: abnormal respiratory effort (Mild dyspnea since the onset of the tachycardia) Auscultation: rhonchi Cardio Common normals: irregular rate and irregular rhythm Rate: tachycardic Rhythm: abnormal rhythm GI Common normals: Normal to inspection, nondistended, normoactive bowel sounds present Progress Note: Objective Labs Labs: Short CBC 03/09/24 Range/Units 04:18 WBC 11.3 H (4.0-11.0) 10^3/uL Hgb 12.8 L (14.0-18.0) g/dL Hct 41.5 L (42.0-54.0) % Plt Count 150 (150-450) 10^3/uL BMP 03/09/24 04:18 Sodium 140 Potassium 4.3 Chloride 105 Carbon Dioxide 28.3 BUN 30.0 H Creatinine 1.48 H Glucose 171 H Calcium 8.7 Liver Function 03/09/24 Range/Units 04:18 Total Bilirubin 0.3 (0.2-1.0) mg/dL AST 15 (15-37) U/L ALT 21 (16-63) U/L Alkaline Phosphatase 54 (46-116) U/L Albumin 2.2 L (3.4-5.0) g/dL Progress Note: A&P Assessment and Plan (1) Community acquired pneumonia: Plan Admission findings : respiratory distress, respiratory acidosis, thrombocytopenia, severe hypoxia with O2 saturation of 81% on room air, lactic acidosis, leukocytosis secondary to right-sided pneumonia which has resulted in severe sepsis. Possible aspiration based on pattern. Overall pneumonia improving, taper steroids, continue with just the Zosyn, patient with a Zithromax allergy. Acute onset of atrial fibrillation-start patient on Eliquis, rate initially controlled with 1 dose of IV Lopressor, placed patient on metoprolol 50 mg p.o. twice daily. Transferred back to the intensive care unit, track and trend troponins, check echocardiogram, consult to cardiology, change aerosol treatments to Xopenex Acute kidney injury. -Creatinine elevated today. Baseline creatinine 1.44, creatinine today 1.88, that is 131% above baseline-this is improved today, back to baseline, saline lock Hyperglycemia-possibly selwbzk-qzwmnez-shzsgtv sliding scale-improving Moderate protein calorie malnutrition-continue with diet supplementation Hypermagnesemia(corection from prev Hypomagnesemia)-monitor daily, likely related to his acute kidney injury-check level Former smoker for 1 year-continue abstinence Ectopy noted on telemetry, it does appear to be where his pacemaker is firing. Appears to have a dual-chamber pacemaker that is a demand pacemaker.-Consult to cardiology Low back pain-continue his home medications Admission status: Patient was started on outpatient antibiotics. Patient deteriorated overnight. With failed outpatient treatment, severe hypoxia on admission, sepsis, medically necessary treatment will span [address] patient in inpatient status-with onset of atrial fibrillation consult to cardiology, likely here at least 1 more day ?
[2024-03-09] MEDS: METHYLPREDNISOLONE SOD SUCC PF 125 MG/2 ML VIAL 40 MG IVP ×3 (07:51→21:05)
[2024-03-09] MEDS: INSULIN ASPART 300 UNIT/3 ML PEN SUBQ ×3 (07:53→21:18)
--- NOTE | 2024-03-09 07:59 | CM.NOTE ---
Rounds made with Dr. Chester, pt has new onset A-fib with rate 130's. Instructed RN to administer 5mg IV Lopressor while doctor at bedside and EKG completed after IV Lopressor. Consult Cardiology for further recommendations. Pt will transfer back to ICU for closer observation.
[2024-03-09] MEDS: METOPROLOL TARTRATE 50 MG TABLET PO ×2 (08:13→21:14)
[2024-03-09] MEDS: ENSURE CLEAR 237 ML LIQUID PO ×2 (08:13→21:15)
[2024-03-09] MEDS: APIXABAN 5 MG TABLET PO ×2 (08:13→21:13)
[2024-03-09 08:25] LABS: Troponin I High Sensitivity 12.5 pg/mL (4.0-76.1)
[2024-03-09] MEDS: BENZONATATE 100 MG CAPSULE 200 MG PO (08:31)
[2024-03-09 11:05] LABS: Glucometer 199 mg/dL (74-106)
[2024-03-09 11:27] LABS: Troponin I High Sensitivity 14.5 pg/mL (4.0-76.1)
--- NOTE | 2024-03-09 11:51 | CM.NOTE ---
Important Message From Medicare discussed with pt, pt verbalizes understanding and signs paper. Original given to pt and copy placed on pt's chart.
[2024-03-09 16:41] LABS: Glucometer 104 mg/dL (74-106)
[2024-03-09 21:10] LABS: Glucometer 183 mg/dL (74-106)
[2024-03-09] MEDS: TIZANIDINE HCL 4 MG TABLET 8 MG PO (21:13)
[2024-03-09] MEDS: GABAPENTIN 300 MG CAPSULE PO (21:17)
[2024-03-10] VITALS (9 sets, daily range): BP systolic 136–149; BP diastolic 82–91; PULSE 72–84; TEMP 36.7; O2SAT 90–93
[2024-03-10] MEDS: METHYLPREDNISOLONE SOD SUCC PF 125 MG/2 ML VIAL 40 MG IVP (02:24)
[2024-03-10] MEDS: PIPERACILLIN SODIUM/TAZOBACTAM 3.375 GM in 0.9 % SODIUM CHLORIDE 50 ML IV (04:17)
[2024-03-10 04:56] LABS: Basophils Absolute Auto 0.1 10^3/uL (0.0-0.1); Basophils Percent Auto 0.5 % (0.2-2.0); Eosinophils Percent Auto 0.2 % (0.9-7.0); Hematocrit 44.6 % (42.0-54.0); Hemoglobin 13.5 g/dL (14.0-18.0); Immature Granulocytes Abs Auto 0.44 10^3/uL (0.00-0.03); Immature Granulocytes Pct Auto 3.6 % (0.0-0.5); Lymphocytes Absolute Auto 0.9 10^3/uL (1.2-3.8); Lymphocytes Percent Auto 7.4 % (20.5-60.0); Mean Corpuscular HGB Conc 30.3 g/dL (29.9-35.2); Mean Corpuscular Volume 95.9 fL (80.0-94.0); Mean Platelet Volume 10.5 fL (9.5-13.5); Monocytes Absolute Auto 0.6 10^3/uL (0.3-0.8); Monocytes Percent Auto 4.7 % (1.7-12.0); Neutrophils Absolute Auto 10.4 10^3/uL (1.4-6.5); Neutrophils Percent Auto 83.6 % (43.0-75.0); Platelet Count 170 10^3/uL (150-450); Red Blood Count 4.65 10^6/uL (4.70-6.10); Red Cell Distribution Width 13.8 % (11.0-15.0); White Blood Count 12.4 10^3/uL (4.0-11.0)
[2024-03-10] MEDS: GABAPENTIN 100 MG CAPSULE PO (05:00)
[2024-03-10 05:13] LABS: Alanine Aminotransferase 41 U/L (16-63); Albumin Globulin Ratio 0.6; Albumin Level 2.3 g/dL (3.4-5.0); Alkaline Phosphatase 57 U/L (46-116); Anion Gap 11.2; Aspartate Amino Transferase 25 U/L (15-37); Bilirubin Total 0.2 mg/dL (0.2-1.0); Calcium 8.8 mg/dL (8.5-10.1); Carbon Dioxide 28.4 mmol/L (21.0-32.0); Chloride 104 mmol/L (98-107); Estimated GFR (African America 57 (>=60); Estimated GFR (Non-African Ame 47 (>=60); Globulin 3.6 g/dL; Glucose 144 mg/dL (74-106); Potassium 4.6 mmol/L (3.5-5.1); Sodium 139 mmol/L (136-145); Total Protein 5.9 g/dL (6.4-8.2)
[2024-03-10] MEDS: INSULIN ASPART 300 UNIT/3 ML PEN SUBQ (08:00)
[2024-03-10] MEDS: CEFTRIAXONE 1,000 MG in 0.9 % SODIUM CHLORIDE 50 ML 100 MG IV (08:00)
--- NOTE | 2024-03-10 08:01 | P.DS_ITS ---
DS: Providers Provider Date of admission: 03/07/24 12:38 Primary care physician: Jaron Chester MD Consults: 03/07/24 12:12 Consult to Pharmacy Routine Consulting Provider: Reason for consultation: Please [place] me when Med Rec is Updated Has provider been notified: No Occupational Therapy Eval and Treat Routine Reason for consultation: Only if needed for Rehab Has provider been notified: No Physical Therapy Eval and Treat Routine Reason for consultation: Eval and Treat Has provider been notified: No 03/09/24 07:39 Consult to Cardiology Routine Reason for consultation: a-fib DS: Diagnosis Discharge Diagnosis (1) Community acquired pneumonia: Plan Admission findings : respiratory distress, respiratory acidosis, thrombocytopenia, severe hypoxia with O2 saturation of 81% on room air, lactic acidosis, leukocytosis secondary to right-sided pneumonia which has resulted in severe sepsis. Possible aspiration based on pattern. Respiratory status improving at the time of discharge Acute onset of atrial fibrillation-start patient on Eliquis, and metoprolol- heart rate stable at the time of discharge, this is new onset Acute kidney injury. Back to baseline at discharge Hyperglycemia-possibly ozbbzks-huasfjr-fbrffp at discharge Moderate protein calorie malnutrition-continue with diet supplementation Hypermagnesemia(corection from prev Hypomagnesemia)-monitor daily, stable at the time of discharge Former smoker for 1 year-continue abstinence Ectopy noted on telemetry, it does appear to be where his pacemaker is firing. Reviewed by cardiology stable and functioning pacemaker Low back pain-continue his home medications Admission status: Patient was started on outpatient antibiotics. Patient deteriorated overnight. With failed outpatient treatment, severe hypoxia on admission, sepsis, medically necessary treatment will span 2 midnights. ? ? DS: Summary Hospital Course Hospital Course: Patient was seen and evaluated in the emergency room with Admission findings : respiratory distress, respiratory acidosis, thrombocytopenia, severe hypoxia with O2 saturation of 81% on room air, lactic acidosis, leukocytosis secondary to right-sided pneumonia which has resulted in severe sepsis. Possible aspiration based on pattern. Placed on IV antibiotic Zosyn. Following day patient was somewhat improved but still requiring supplemental oxygen. I was able to be weaned off until 1 day prior to discharge when he had acute onset of severe shortness of breath and tachycardia. Patient found to have atrial fibrillation. Patient was transferred back to the intensive care unit after getting 1 dose of IV Lopressor 5 mg, heart rate improved, placed on metoprolol and Eliquis, consult to cardiology with echocardiogram. Reviewed case with cardiology, after interrogating the pacemaker it looks like he may have been in and out of atrial fibrillation without his knowledge. Once placed on metoprolol and Eliquis his heart rate did stabilize. Blood pressure stabilized. His amlodipine was discontinued. He feels improved this morning. He has been off of supplemental oxygen. Plan is if he ambulates well without hypoxia or tachycardia he can be discharged home in improved condition. Medications see list. Follow-up with me either later this week or next. For his pneumonia of the sputum culture grew haemophilus influenza. Will change patient to Rocephin, patient has a prescription for cefdinir at home. Will follow-up on sensitivities later today. Likely discharged home later today. Medication status. Status at Discharge Overall status at discharge: patient is not back to baseline (Still some dyspnea but overall much improved) Time Spent with Patient Time attestation: Total time spent providing and/or coordinating discharge services: Time spent: greater than 30 minutes Exam Constitutional Vital Signs, click to edit/add: Last Vital Signs Temp 98.1 F 03/10/24 07:54 Pulse 73 03/10/24 07:54 Resp 16 03/10/24 07:54 BP 149/91 H 03/10/24 07:54 Pulse Ox 90 L 03/10/24 07:54 O2 Del Method Room Air 03/10/24 07:54 O2 Flow Rate 1 03/09/24 05:00 Documenting provider has reviewed patient's vital signs: yes Common normals: apparent distress (Moderate distress secondary to the tachycardia) Chest Common normals: inspection of chest normal Respiratory Common normals: normal respiratory effort Auscultation: rhonchi (Much improved) Cardio Common normals: regular rate; irregular rhythm Rhythm: abnormal rhythm GI Common normals: Normal to inspection, nondistended, normoactive bowel sounds present Extremity Common normals: normal to inspection, normal capillary refill and no clubbing, cyanosis or edema DS: Data Data Completed and Pending Labs on day of discharge: Labs from last 24 hours 03/10/24 03/09/24 03/09/24 04:13 21:09 16:39 WBC 12.4 H RBC 4.65 L Hgb 13.5 L Hct 44.6 MCV 95.9 H MCH 29.0 MCHC 30.3 RDW 13.8 Plt Count 170 MPV 10.5 Neut % (Auto) 83.6 H Lymph % (Auto) 7.4 L Miner % (Auto) 4.7 Eos % (Auto) 0.2 L Baso % (Auto) 0.5 Neut # (Auto) 10.4 H Lymph # (Auto) 0.9 L Miner # (Auto) 0.6 Eos # (Auto) 0.0 Baso # (Auto) 0.1 Abs Immat Gran (auto) 0.44 H Imm/Tot Granulo (auto) 3.6 H Sodium 139 Potassium 4.6 Chloride 104 Carbon Dioxide 28.4 Anion Gap 11.2 BUN 35.0 H Creatinine 1.46 H Est GFR ( Amer) 57 L Est GFR (Non-Af Amer) 47 L BUN/Creatinine Ratio 24.0 Glucose 144 H Calcium 8.8 Total Bilirubin 0.2 AST 25 ALT 41 Alkaline Phosphatase 57 Troponin I High Sens NT-Pro-B Natriuret Pep Total Protein 5.9 L Albumin 2.3 L Globulin 3.6 Albumin/Globulin Ratio 0.6 POC Glucose 183 H 104 03/09/24 03/09/24 03/09/24 14:11 11:01 10:53 WBC RBC Hgb Hct MCV MCH MCHC RDW Plt Count MPV Neut % (Auto) Lymph % (Auto) Miner % (Auto) Eos % (Auto) Baso % (Auto) Neut # (Auto) Lymph # (Auto) Miner # (Auto) Eos # (Auto) Baso # (Auto) Abs Immat Gran (auto) Imm/Tot Granulo (auto) Sodium Potassium Chloride Carbon Dioxide Anion Gap BUN Creatinine Est GFR ( Amer) Est GFR (Non-Af Amer) BUN/Creatinine Ratio Glucose Calcium Total Bilirubin AST ALT Alkaline Phosphatase Troponin I High Sens 20.0 14.5 NT-Pro-B Natriuret Pep Total Protein Albumin Globulin Albumin/Globulin Ratio POC Glucose 199 H 03/09/24 07:49 WBC RBC Hgb Hct MCV MCH MCHC RDW Plt Count MPV Neut % (Auto) Lymph % (Auto) Miner % (Auto) Eos % (Auto) Baso % (Auto) Neut # (Auto) Lymph # (Auto) Miner # (Auto) Eos # (Auto) Baso # (Auto) Abs Immat Gran (auto) Imm/Tot Granulo (auto) Sodium Potassium Chloride Carbon Dioxide Anion Gap BUN Creatinine Est GFR ( Amer) Est GFR (Non-Af Amer) BUN/Creatinine Ratio Glucose Calcium Total Bilirubin AST ALT Alkaline Phosphatase Troponin I High Sens 12.5 NT-Pro-B Natriuret Pep 994.0 Total Protein Albumin Globulin Albumin/Globulin Ratio POC Glucose Preliminary micro results at discharge 03/07/24 10:25 - Preliminary Blood NO GROWTH AT 36-48 HOURS. FINAL TO FOLLOW. 03/07/24 10:06 Blood Culture Result 1 - Preliminary Blood NO GROWTH AT 36-48 HOURS. FINAL TO FOLLOW. Discharge Plan Discharge Disposition: Home, Self-Care Condition: Serious Discharge Medications: New metoprolol tartrate 50 mg Tablet 50 mg PO BID Qty: 60 11RF Eliquis 5 mg Tablet 5 mg PO BID Qty: 60 11RF Continued gabapentin 100 mg capsule 100 mg PO BID tizanidine 4 mg tablet 8 mg PO .HS cefdinir 300 mg capsule 600 mg PO DAILY gabapentin 300 mg capsule 300 mg PO .qhs Discontinued amlodipine 5 mg tablet 5 mg PO .QD Print Language: Bermudian Forms: Portal Instructions Follow Up Appointments: [facility] Cardiology March 23 at 3PM [place] Office
[2024-03-10] MEDS: ENSURE CLEAR 237 ML LIQUID PO (08:04)
[2024-03-10] MEDS: APIXABAN 5 MG TABLET PO (08:04)
[2024-03-10] MEDS: METOPROLOL TARTRATE 50 MG TABLET PO (08:04)
[2024-03-10] MEDS: METHYLPREDNISOLONE SOD SUCC PF 40 MG/ML VIAL IVP (08:05)
[2024-03-10] MEDS: LEVOFLOXACIN IN DEXTROSE 5 % 750 MG/150 ML IV.SOLN 100 MG IV (08:05)
--- NOTE | 2024-03-10 08:05 | CM.NOTE ---
Rounds made with Dr. Chester, pt will discharge to home this afternoon. Dr. Chester discussed changes in medications at discharge. Discussed with pt also about Eliquis, reason for medication and interactions. Pt given Eliquis free 30 day trial card. Pt is Medicare and is unable to get co-pay card. Dr. Chester explained to pt about cost of Eliquis and if too expensive with Medicare he would change medication at f/u appt. No other discharge needs identified for patient.
--- NOTE | 2024-03-10 09:32 | PT.DAILY ---
Physical Therapy Daily Note PT Daily Note/Assess Start: 03/10/24 09:26 Freq: Status: Active Protocol: Document 03/10/24 09:26 MICHEL (Rec: 03/10/24 09:32 MICHEL [id number]) Physical Therapy Daily Note/Assessment Time In/Time Out Time In 09:05 Time Out 09:21 Pain In Pain N/A Pain Out Pain N/A Subjective Subjective Pt sitting in BS chair upon arrival. Agrees to PT. Therapeutic Exercise Time Therapeutic Exercise Minutes (minutes) 4 Therapeutic Exercise Units 0 Therapeutic Exercise Treatment Therapeutic Exercise Treatment Seated bilat LE strengthening ex complete prior to gait. Therapeutic Activity Time Therapeutic Activity Minutes (minutes) 8 Therapeutic Activity Units 1 Therapeutic Activity Treatment Chair Transfer Ability Modified Independent Therapeutic Activity Comments Sit>stand Brandi from BS chair with IV pole. Pt amb 200' with IV pole, SUP. Returned to BS chair. SpO2 94% upon completion. 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 Edu on OP PT - pt seems agreeable. Notified Joaquina ([employer]) and she is going to send order to Dr. Chester. Pt remains in BS chair upon completion with call light in reach and needs met. Total Physical Therapy Time Total Therapy Minutes 12 Total Physical Therapy Units 1 Summary Daily Note Summary Improved gait endurance. Spo2 94% after amb.
--- NOTE | 2024-03-10 11:55 | CM.NOTE ---
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 Called Pharmacy and provided code for 30 day free trial with Declan, pt's total now will be 4 dollars for the Lopressor that was called into pharmacy. Called Dr. Chester with pt's concerns for future cost, Dr. Chester voices he will have his office staff work on future costs for patient and let him know at follow-up appt. Pt verbalizes understanding.
== END 2024-03-10 11:57 | disposition home or self-care (01) | DRG 871 ==
LOC: ER 09:48 → MS 12:42 → ICU 03-09 07:13
PROVIDERS: Admitting Provider Family Medicine; Emergency Provider Emergency Medicine; PCP Family Medicine; Visit Provider Family Medicine
DX: A41.3 Sepsis due to Hemophilus influenzae (principal); J18.9 Pneumonia, unspecified organism; N17.9 Acute kidney failure, unspecified; E87.29 Other acidosis; E87.20 Acidosis, unspecified; E44.0 Moderate protein-calorie malnutrition; R65.20 Severe sepsis without septic shock; I48.91 Unspecified atrial fibrillation; R06.03 Acute respiratory distress; M54.50 Low back pain, unspecified; I10 Essential (primary) hypertension; D69.6 Thrombocytopenia, unspecified; E83.41 Hypermagnesemia; R09.02 Hypoxemia; R73.9 Hyperglycemia, unspecified; R13.10 Dysphagia, unspecified; Z20.822 Contact with and (suspected) exposure to COVID-19; R79.89 Other specified abnormal findings of blood chemistry; T38.0X5A Adverse effect of glucocorticoids and synthetic analogues, initial encounter; Z79.899 Other long term (current) drug therapy; Z98.890 Other specified postprocedural states; Z90.49 Acquired absence of other specified parts of digestive tract; Z95.0 Presence of cardiac pacemaker; Z87.891 Personal history of nicotine dependence; Z85.46 Personal history of malignant neoplasm of prostate; Z68.33 Body mass index [BMI] 33.0-33.9, adult
CPT/HCPCS: 36415; 36600; 71045; 71275; 80053; 81001; 82805; 82948; 83605; 83735; 83880; 84145; 84484; 85025; 85610; 85730; 87040; 87070; 87150; 87205; 87804; 87811; 93005; 93306; 94640; 94667; 94668; 94761; 96365; 96366; 96367; 96368; 96375; 96376; 97162; 97165; 97530; 97535; 99285; J2919; Q9966

== ENCOUNTER 2024-03-11 13:49 | Outpatient (OUT) | payer MEDICARE, OTHER, SELFPAY ==
--- NOTE | 2024-03-11 14:15 | PM.CN ---
Consult Note: HPI Data of Consult Patient: known to practice within the last 3 years Requesting Physician: Gisele Rodriguez NP Primary Care Provider: Jaron Chester MD Consult Narrative Reason for consult: f/u Narrative: Brian Oneal a pleasant 73 year old male presents for evaluation and management of low back pain. 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 Pain today 5-6/10 increasing to 8/10 with bending twisting and activity. Patient continues to have moderate to severe pain that is radiating in right low back and to right thigh stopping at his knee, increased with activity, standing, walking. Patient recently Patient continues to have significant pain with activity, walking, and climbing. recently underwent bilateral L4-5 L5-S1 facet medial branch block #1 and #2 with >80% improvement in pain and functional ability 1 day. cc:: CC: Gisele Rodriguez NP Review of Systems ROS Status of ROS 10 or more systems reviewed and unremarkable except as noted in history and below Musculoskeletal Reports: back pain PFSH PFSH Medical History Low back pain ?M54.50 - Low back pain, unspecified (ICD-10) Glaucoma ?H40.9 - Unspecified glaucoma (ICD-10) H/O prostate cancer ?Z85.46 - Personal history of malignant neoplasm of prostate (ICD-10) Numbness and tingling ?R20.0 - Anesthesia of skin (ICD-10) ?R20.2 - Paresthesia of skin (ICD-10) Former smoker ?Z87.891 - Personal history of nicotine dependence (ICD-10) Irregular heart beat ?I49.9 - Cardiac arrhythmia, unspecified (ICD-10) Hypertension ?I10 - Essential (primary) hypertension (ICD-10) Surgical History Pacemaker ?Z95.0 - Presence of cardiac pacemaker (ICD-10) H/O lumbosacral spine surgery ?Z98.890 - Other specified postprocedural states (ICD-10) History of appendectomy ?Z90.49 - Acquired absence of other specified parts of digestive tract (ICD-10) Family History Mother Family history of cancer Family history of hypertension Sister Family history of cancer Family history of myocardial infarction Social History Within the past year, how often did you have a drink containing alcohol: never Within the past year, how often did you have six or more drinks on one occasion: never Score interpretation: A score less than 4 is consistent with normal alcohol consumption. Smoking status: Former smoker Non-prescribed substance use: denies use Previous occupational history: retired Highest level of school completed/degree received: high school graduate Are you now , , , , never or living with a partner: living with partner Little interest or pleasure in doing things: not at all Feeling down, depressed, or hopeless: not at all Feel stressed/tense/nervous/anxious/difficulty sleeping: only a little Meds Home Medications and Allergies Home Medications ?Medication ?Instructions ?Recorded ?Confirmed ?Type gabapentin 100 mg capsule 100 mg PO BID 05/27/23 03/07/24 History tizanidine 4 mg tablet 8 mg PO .HS 05/27/23 03/07/24 History cefdinir 300 mg capsule 600 mg PO DAILY 03/07/24 03/07/24 History gabapentin 300 mg capsule 300 mg PO .qhs 03/07/24 03/07/24 History apixaban 5 mg tablet (Eliquis) 5 mg PO BID #60 tabs 03/10/24 Rx metoprolol tartrate 50 mg tablet 50 mg PO BID #60 tabs 03/10/24 Rx Allergies Allergy/AdvReac Type Severity Reaction Status Date / Time Z PACK Allergy Uncoded 03/02/24 08:27 Exam Constitutional Documenting provider has reviewed patient's vital signs: yes Common normals: no apparent distress, oriented x3, healthy appearing, alert and well nourished General appearance: cooperative [facility] Common normals: normocephalic, hearing grossly normal bilaterally and moist oral mucous membranes Head and scalp: normocephalic Eye Common normals: PERRL Pupil: PERRL Neck & C-Spine Common normals: full ROM General: normal visual inspection Chest Common normals: inspection of chest normal Respiratory Common normals: normal respiratory effort, no retractions and no use of accessory muscles Back & Pelvis Thoracic spine/upper back: ROM limited Lumbar spine/lower back: ROM limited, pain with ROM (mild) and straight leg raise negative bilaterally Sacroiliac joints: SI joints normal Other: positive facet loading no radiculopathy on exam sensation intact BLE Extremity Common normals: normal to inspection, full ROM, no calf tenderness and no pedal edema Neuro Common normals: oriented x3, CN's II-XII intact bilaterally, moves all extremities, no focal motor deficits, no sensory deficits noted and deep tendon reflexes 2+ bilaterally Sensorium/orientation: alert Motor exam: strength 5/5 throughout and no movement abnormalities noted Psych Common normals: mental status grossly normal, thought process normal, cooperative, affect normal, speech normal and activity/motor behavior normal Speech: normal speech Thought process: normal thought process Results Additional Findings Additional findings: If on a controlled substance or opioids, I have checked an [place] report on this patient and there are no aberrancies noted in the prescribing history.??If on a controlled substance or opioid a drug screen was completed and reviewed within the last year, and if there has not been a drug screen completed we ordered one today to monitor higher risk, state monitored pain medication use. As part of providing excellent, safe, comprehensive care, the following was completed at our patient's visit: 1. A medication reconciliation and review to ensure accurate knowledge of current/active medications, including asking our patients to inform us about any [id number] medications or herbal remedies/nutritional supplements/alternative remedies. 2. A review to specifically ensure our patients have had annual screening for screening for depression, screening for tobacco use, and screening for unhealthy alcohol use. For concerning screenings had a discussion with the patient, provided patient education, and recommended follow-up with primary care provider when appropriate. If patient noted with a risk of falling, they received education on strength, gait, and balance training to prevent future risk of falling. Assessment and Plan Assessment and Plan (1) Lumbar spondylosis: Assessment and Plan: The patient has had over 3 months of moderate to severe low back pain with functional impairment and inadequate response to conservative care including NSAIDS (unless there are contraindication such as concurrent blood thinners), multiple oral or topical pain medications, and home exercise program/physical therapy.? Patient has completed >6 weeks of guided home exercise program and/or formal physical therapy program without relief of their symptoms.? I have reviewed the imaging of the lumbar spine and no red flags were identified.? The imaging reveals radiographic findings consistent with lumbar spondylosis We discussed the risks and benefits of the procedure with the patient, and we are NOT planning on using sedation as outlined in the guidelines from Medicare unless there is a documented reason that sedation would be strongly recommended.?? ?The procedure will be completed with fluoroscopic guidance.? (2) Lumbar stenosis with neurogenic claudication: Plan bilateral L4-5 L5-S1 facet medial branch RFA for chronic low back pain unresponsive to PT/HEP and conservative measures consider vertiflex/spinal cord stimulator in the future however patient very active and I do not think he could avoid bending twisting of lifting for recovery periods of either procedure with his current work continue current medications f/u 1 month after RFA
== END 2024-03-11 13:50 | disposition home or self-care (01) ==
LOC: PM 13:50
PROVIDERS: PCP Family Medicine; Visit Provider Nurse Practitioner
DX: M47.816 Spondylosis without myelopathy or radiculopathy, lumbar region (principal); M48.062 Spinal stenosis, lumbar region with neurogenic claudication
CPT/HCPCS: G0463

== ENCOUNTER 2024-03-30 09:44 | Day surgery (SDC) | payer MEDICARE, OTHER, SELFPAY ==
--- OUTSIDE RECORDS SUMMARY | 2024-03-30 10:09 | XMS_ITS | CCD ---
Author Organization [facility] Care Team Providers Care Ditcher Operator Name Role Phone MODESTO BECERRA Admitting [...] DR ZARATE Admitting Unavailable Giedraitis , Andrius Vebenezerautclaritza Attending Unavailable Giedraitis MD, Andrius Vytautclaritza Attending Unavailable Giedraitis MD, Andrius Vytautclaritza Attending Unavailable Giedraitis MD, Andrius Vytautas Attending Unavailable Giedraitis MD, Andrius Vytautas Attending Unavailable Giedraitis MD, Andrius Vytautas Attending Unavailable Giedraitis MD, Andrius Vytautas Attending Unavailable JONAS, MOHAMED Attending Unavailable THELMA, RADU Referring Unavailable THELMA, RADU Attending Unavailable ALGHOTHANI, MOHAMAD Attending Unavailable ALGHOTHANI, MOHAMAD Attending Unavailable ALGHOTHANI, MOHAMAD Attending Unavailable FRANCISCO, MODESTO Referring Unavailable FRANCISCO MODESTO Referring Unavailable ALGHOTHANI, MOHAMAD Attending Unavailable THELMA, RADU Referring Unavailable THELMA, RADU Referring Unavailable THELMA, RADU Attending Unavailable Allergies Allergy Classification Reported Allergen(s) Allergy Type Date of Onset Reaction(s) Facility (2 sources) Azithromycin; Translations: [AZITHROMYCIN] Drug Allergy 03-22-2022 [facility] Repository (2 sources) Azithromycin Drug Allergy 03-03-2015 [facility] Repository (1 source) Ciprofloxacin Drug Allergy 12-18-2022 [facility] Rep[facility] Problems Active Problems Problem Classification Problem [...] [Other chronic pain] Onset: 03-26-2023 Chronic Other nutritional; endocrine; and metabolic disorders [...] unspecified; Translations: [Peripheral vascular disease, unspecified] Onset: 05-08-2023 Chronic Residual codes; unclassified (5 sources) Obstructive [...] 10-01-2022 Episodic Other aftercare (1 source) Other long term care phlebotomist (current) drug therapy; Translations: [OTH DEPUTY COMMISSIONER CURRENT DRUG THERAPY] Onset: 03-19-2022 Episodic Pneumonia [...] Range Facility Office Visiton 08-27-2023 Follow-up visit [id number] Wayne Oneal A 1950 M Date Provider Department Center 08/27/2023 MAJOR ALMEIDA Family History Problem Relation Age of Onset Coronary artery disease Mother Family Status - Relation Status Age at Mother Level of Service:38074 [place] OFFICE/OUTPATIENT ESTABLISHED LOW MDM 20-29 MIN Normal [facility] Office Visiton 05-13-2023 Follow-up visit [id number] Wayne Oneal A 1950 M Date Provider Department Center 05/13/2023 MAJOR ALMEIDA Family History Problem Relation Age of Onset Coronary artery disease Mother Family Status - Relation Status Age at Mother Level of Service:08829 [place] OFFICE/OUTPATIENT ESTABLISHED MOD MDM 30-[address] [facility] Orders Onlyon 05-13-2023 Orders Only [id number] Wayne Oneal A 1950 Date Provider Department Center 05/13/2023 Royal-BRAYAN AU [facility] Family History Problem Relation Age of Onset Coronary artery disease Mother Family Status - Relation Status Age at Mother [facility] 29on 05-08-2023 27 Addended by: LEANA HENNING on: 05/09/2023 01:46 PM Modules accepted: Orders [facility] Consulton 05-08-2023 Consult [id number] Wayne Oneal A 1950 Date Provider Department Center 05/08/2023 Sapna-JOSE [facility]AS[facility]HIRE[facility] History Problem Relation Age of Onset Coronary artery disease Mother Family Status - Relation Status Age at Mother Level of Service:91134 [place] OFFICE/OUTPATIENT NEW MODERATE MDM 45-59 MINUTES Reason for Visit and Comments: New Patient [632] - Numbness in bilateral legs [facility] Follow-Upon 04-09-2023 Follow-Up [id number] Wayne Oneal A 1950 Date Provider Department Center 04/09/2023 RADU QUEVEDO [facility] Second Fl Family History Problem Relation Age of Onset Coronary artery disease Mother Family Status - Relation Status Age at Mother Level of Service:65782 [place] OFFICE/OUTPATIENT ESTABLISHED LOW MDM 20-29 MIN Reason for Visit and Comments: Follow-up [[id number]] - follow up s/p SAGAR, XR; When patient bends over it tends to pull his back muscles and when he gets back up he is in pain. Walking a long distance he is in lots of pain. [facility] 36on 04-02-2023 36 Pt was called and scheduled a follow up with Dr. Renee to review results. [facility] 36 Brian is asking fo r an answer to left lower back pain. Had the US done and is not having any relief in his back. [facility] Telephoneon 04-02-2023 Telephone [id number] Wayne Oneal A 1950 Date Provider Department Center 04/02/2023 [id number] VAZQUEZ [facility] Second Fl Family History Problem Relation Age of Onset Coronary artery disease Mother Family Status - Relation Status Age at Mother Normal [facility] Consulton 03-26-2023 Consult [id number] Wayne Oneal 1950 M Date Provider Department Center 03/26/2023 372Louise-RADU RENEE [facility] Second Fl Family History Problem Relation Age of Onset Coronary artery disease Mother Family Status - Relation Status Age at Mother Level of Service:31548 [place] OFFICE/OUTPATIENT NEW MODERATE MDM 45-59 MINUTES Reason for Visit and Comments: Consult [424] - Pt is here for a CO visit for Osteophyte. Normal [facility] Covid-19 PCR ([facility])on SARS-CoV-2 (COVID-19) RNA VENESSA+probe Ql (Unsp spec) Not detected Normal NOT DETECTED [facility] Comment on above: Result Comment: When diagnostic [...] for this test is supported by the [place] of Health and Human Service's declaration that [...] Performed By: #### B MP, BNP #### [facility] [address] [place] [address] Dr. Leni Hamlin INFLUENZA A AND B AGon 01-16 INFLUANEGH SEE BELOW Normal [facility] Comment on above: Result Comment: Nega tive for Flu A protein angiten. Infection due to Flu A cannot be ruled out. Flu A angiten in the sample may be below the detection limit of the test. Performed By: #### C RP #### [facility] [address] [place] [address] Dr. Leni Hamlin [facility] SEE BELOW Normal [facility] Comment on above: Result Comment: Nega tive for Flu B protein antigen. Infection due to Flu B cannot be ruled out. Flu B antigen in the sample may be below the detection limit of the test. Performed By: #### C RP #### [facility] [address] [place] [address] Dr. Leni Hamlin INFLUENZA A AG Negative Normal NEGATIVE SEE COMMENT [facility] Comment on above: Performed By: #### C RP #### [facility] [address] [place] [address] Dr. Leni Hamlin INFLUENZA B AG Negative Normal NEGATIVE SEE COMMENT [facility] Comment on above: Performed By: #### C RP #### [facility] [address] [place] [address] LSPINE WO CONon [...] CIERA HERNÁNDEZ Date: 2022-12-18 15:56 Normal [facility] CBC AUTO DIFFon 10-03-2022 BASO # 0.1 103/ul Normal 0.0-0.1 [facility] Comment on above: Performed By: #### B MP, BNP #### [facility] [address] [place] [address] Dr. Leni Hamlin Basophils/100 WBC (Bld) 0.5 % Normal 0.2-2.0 [facility] Comment on above: Performed By: #### B MP, BNP #### [facility] [address] [address] [address] Leni Hamlin EO # 0.3 103/ul Normal 0.0-0.7 [facility] Comment on above: Performed By: #### B MP, BNP #### [facility] [address] [place] [address] Dr. Leni Hamlin Eosinophils/100 WBC (Bld) 2.2 % Normal 0.9-7.0 [facility] Comment on above: Performed By: #### B MP, BNP #### [facility] [address] [address] [address] Leni Hamlin Erythrocyte distribution width (RBC) [Ratio] 13.3 % Normal 11.0-15.0 [facility] Comment on above: Performed By: #### B MP, BNP #### [facility] [address] [place] [address] Dr. Leni Hamlin Hematocrit (Bld) [Volume fraction] 46.9 % Normal 42.0-54.0 [facility] Comment on above: Performed By: #### B MP, BNP #### [facility] [address] [address] [address] Leni Hamlin Hemoglobin (Bld) [Mass/Vol] 15.3 g/dL Normal 14.0-18.0 [facility] Comment on above: Performed By: #### B MP, BNP #### [facility] [address] [address] [address] Leni Hamlin IG # 0.18 10e3/ul Critically high 0.00-0.03 [facility] Comment on above: Performed By: #### B MP, BNP #### [facility] [address] [address] [address] Leni Hamlin IG % 1.3 % Critically high 0.0-0.5 [facility] Comment on above: Performed By: #### B MP, BNP #### [facility] [address] [place] [address] Dr. Leni Hamlin LYMPH # 1.9 103/ul Normal 1.2-3.8 [facility] Comment on above: Performed By: #### B MP, BNP #### [facility] [address] [place] [address] Dr. Leni Hamlin Lymphocytes/100 WBC (Bld) 13.6 % Critically low 20.5-60.0 [facility] Comment on above: Performed By: #### B MP, BNP #### [facility] [address] [place] [address] Dr. Leni Hamlin MANUAL DIFF REQ NO Normal [facility] Comment on above: Performed By: #### B MP, BNP #### [facility] [address] [place] [address] Dr. Leni Hamlin MCH (RBC) [Entitic mass] 29.2 pg Normal 25.9-34.0 [facility] Comment on above: Performed By: #### B MP, BNP #### [facility] [address] [place] [address] Dr. Leni aHmlin MCHC (RBC) [Mass/Vol] 32.6 g/dL Normal 29.9-35.2 [facility] Comment on above: Performed By: #### B MP, BNP #### [facility] [address] [address] [address] Leni Hamlin MCV (RBC) [Entitic vol] 89.5 fL Normal 80.0-94.0 [facility] Comment on above: Performed By: #### B MP, BNP #### [facility] [address] [place] [address] Dr. Leni Hamlin MONO # 0.9 103/ul Critically high 0.3-0.8 [facility] Comment on above: Performed By: #### B MP, BNP #### [facility] [address] [place] [address] Dr. Leni Hamlin Monocytes/100 WBC (Bld) 6.6 % Normal 1.7-12.0 [facility] Comment on above: Performed By: #### B MP, BNP #### [facility] [address] [place] [address] Dr. Leni Hamlin NEUT # 10.4 103/ul Critically high 1.4-6.5 [facility] Comment on above: Performed By: #### B MP, BNP #### [facility] [address] [place] [address] Dr. Leni Hamlin Neutrophils/100 WBC (Bld) 75.8 % Critically high 43.0-75.0 [facility] Comment on above: Performed By: #### B MP, BNP #### [facility] [address] [place] [address] Dr. Leni Hamlin Platelet mean volume (Bld) [Entitic vol] 10.6 fL Normal 9.5-13.5 [facility] Comment on above: Performed By: #### B MP, BNP #### [facility] [address] [place] [address] Dr. Leni Hamlin PLT 143 103/ul Critically low 150-450 [facility] Comment on above: Performed By: #### B MP, BNP #### [facility] [address] [place] [address] Dr. Leni Hamlin RBC 5.24 106/ul Normal 4.70-6.10 [facility] Comment on above: Performed By: #### B MP, BNP #### [facility] [address] [place] [address] Dr. Leni Hamlin WBC 13.7 103/ul Critically high 4.0-11.0 [facility] Comment on above: Performed By: #### B MP, BNP #### [facility] [address] [place] [address] Dr. Leni Hamlin CRPon 10-03-2022 CRP 7.6 mg/dL Critically high <=1.0 [facility] Comment on above: Performed By: #### C MP, CRP #### [facility] [address] [place] [address] Dr. Leni Hamlin PROF 14(COMP METB)on 022 Albumin [Mass/Vol] 2.5 g/dL Critically low 3.4-5.0 [facility] Comment on above: Performed By: #### C MP, CRP #### [facility] [address] [place] [address] Dr. Leni Hamlin Albumin/Globulin [Mass ratio] 0.7 {ratio} Normal [facility] Comment on above: Performed By: #### C MP, CRP #### [facility] [address] [place] [address] Dr. Leni Hamlin ALP [Catalytic activity/Vol] 54 U/L Normal 46-116 [facility] Comment on above: Performed By: #### C MP, CRP #### [facility] [address] [place] [address] Dr. Leni Hamlin ALT [Catalytic activity/Vol] 11 U/L Critically low 16-63 [facility] Comment on above: Performed By: #### C MP, CRP #### [facility] [address] [place] [address] Dr. Leni Hamlin Anion gap [Moles/Vol] 8.8 mmol/L Normal [facility] Comment on above: Performed By: #### C MP, CRP #### [facility] [address] [place] [address] Dr. Leni Hamlin AST [Catalytic activity/Vol] 9 U/L Critically low 15-37 [facility] Comment on above: Performed By: #### C MP, CRP #### [facility] [address] [place] [address] Dr. Leni Hamlin Bilirubin [Mass/Vol] 0.3 mg/dL Normal 0.2-1.0 [facility] Comment on above: Performed By: #### C MP, CRP #### [facility] [address] [place] [address] Dr. Leni Hamlin Calcium [Mass/Vol] 8.6 mg/dL Normal 8.5-10.1 [facility] Comment on above: Performed By: #### C MP, CRP #### [facility] [address] [place] [address] Dr. Leni Hamlin Chloride [Moles/Vol] 103 mmol/L Normal 98-107 [facility] Comment on above: Performed By: #### C MP, CRP #### [facility] [address] [place] [address] Dr. Leni Hamlin CO2 [Moles/Vol] 29.2 mmol/L Normal 21.0-32.0 [facility] Comment on above: Performed By: #### C MP, CRP #### [facility] [address] [place] [address] Dr. Leni Hamlin Creatinine [Mass/Vol] 1.20 mg/dL Normal 0.70-1.30 [facility] Comment on above: Performed By: #### C MP, CRP #### [facility] [address] [place] [address] Dr. Leni Hamlin EGFR-AF [place]I >60 Normal >=60 [facility] Comment on above: Performed By: #### C MP, CRP #### [facility] [address] [place] [address] Dr. Leni Hamlin EGFR-NON AF [place] 59 mL/min/1.73m2 Critically low >=60 [facility] Comment on above: Performed By: #### C MP, CRP #### [facility] [address] [place] [address] Dr. Leni Hamlin Globulin (S) [Mass/Vol] 3.4 g/dL Normal [facility] Comment on above: Performed By: #### C MP, CRP #### [facility] [address] [place] [address] Dr. Leni Hamlin Glucose [Mass/Vol] 108 mg/dL Critically high 74-106 T [facility] Comment on above: Performed By: #### C MP, CRP #### [facility] [address] [place] [address] Dr. Leni Hamlin Potassium [Moles/Vol] 4.0 mmol/L Normal 3.5-5.1 [facility] Comment on above: Performed By: #### C MP, CRP #### [facility] [address] [place] [address] Dr. Leni Hamlin Protein [Mass/Vol] 5.9 g/dL Critically low 6.4-8.2 [facility] Comment on above: Performed By: #### C MP, CRP #### [facility] [address] [place] [address] Dr. Leni Hamlin Sodium [Moles/Vol] 137 mmol/L Normal 136-145 [facility] Comment on above: Performed By: #### C MP, CRP #### [facility] [address] [place] [address] Dr. Leni Hamlin Urea nitrogen [Mass/Vol] 15.0 mg/dL Normal 7.0-18.0 [facility] Comment on above: Performed By: #### C MP, CRP #### [facility] [address] [place] [address] Dr. Leni Hamlin Urea nitrogen/Creatinine [Mass ratio] 12.5 mg/mg Normal [facility] Comment on above: Performed By: #### C MP, CRP #### [facility] [address] [place] [address] Dr. Leni Hamlin CBC AUTO DIFFon 10-02-2022 BASO # 0.1 103/ul Normal 0.0-0.1 [facility] Comment on above: Performed By: #### C MP, CRP #### [facility] [address] [place] [address] Dr. Leni Hamlin Basophils/100 WBC (Bld) 0.5 % Normal 0.2-2.0 [facility] Comment on above: Performed By: #### C MP, CRP #### [facility] [address] [place] [address] Dr. Leni Hamlin EO # 0.2 103/ul Normal 0.0-0.7 [facility] Comment on above: Performed By: #### C MP, CRP #### [facility] [address] [place] [address] Dr. Leni Hamlin Eosinophils/100 WBC (Bld) 1.6 % Normal 0.9-7.0 [facility] Comment on above: Performed By: #### C MP, CRP #### [facility] [address] [place] [address] Dr. Leni Hamlin Erythrocyte distribution width (RBC) [Ratio] 13.4 % Normal 11.0-15.0 [facility] Comment on above: Performed By: #### C MP, CRP #### [facility] [address] [place] [address] Dr. Leni Hamlin Hematocrit (Bld) [Volume fraction] 46.6 % Normal 42.0-54.0 [facility] Comment on above: Performed By: #### C MP, CRP #### [facility] [address] [place] [address] Dr. Leni Hamlin Hemoglobin (Bld) [Mass/Vol] 15.1 g/dL Normal 14.0-18.0 [facility] Comment on above: Performed By: #### C MP, CRP #### [facility] [address] [place] [address] Dr. Leni Hamlin IG # 0.21 10e3/ul Critically high 0.00-0.03 [facility] Comment on above: Performed By: #### C MP, CRP #### [facility] [address] [place] [address] Dr. Leni Hamlin IG % 1.4 % Critically high 0.0-0.5 [facility] Comment on above: Performed By: #### C MP, CRP #### [facility] [address] [address] [address] Leni Hamlin LYMPH # 1.9 103/ul Normal 1.2-3.8 [facility] Comment on above: Performed By: #### C MP, CRP #### [facility] [address] [address] [address] Leni Hamlin Lymphocytes/100 WBC (Bld) 12.4 % Critically low 20.5-60.0 [facility] Comment on above: Performed By: #### C MP, CRP #### [facility] [address] [address] [address] Leni Hamlin MANUAL DIFF REQ NO Normal [facility] Comment on above: Performed By: #### C MP, CRP #### [facility] [address] [place] [address] Dr. Leni Hamlin MCH (RBC) [Entitic mass] 28.9 pg Normal 25.9-34.0 [facility] Comment on above: Performed By: #### C MP, CRP #### [facility] [address] [place] [address] Dr. Leni Hamlin MCHC (RBC) [Mass/Vol] 32.4 g/dL Normal 29.9-35.2 [facility] Comment on above: Performed By: #### C MP, CRP #### [facility] [address] [place] [address] Dr. Leni Hamlin MCV (RBC) [Entitic vol] 89.3 fL Normal 80.0-94.0 [facility] Comment on above: Performed By: #### C MP, CRP #### [facility] [address] [place] [address] Dr. Leni Hamlin MONO # 1.1 103/ul Critically high 0.3-0.8 [facility] Comment on above: Performed By: #### C MP, CRP #### [facility] [address] [place] [address] Dr. Leni Hamlin Monocytes/100 WBC (Bld) 6.9 % Normal 1.7-12.0 [facility] Comment on above: Performed By: #### C MP, CRP #### [facility] [address] [address] [address] Leni Hamlin NEUT # 11.8 103/ul Critically high 1.4-6.5 [facility] Comment on above: Performed By: #### C MP, CRP #### [facility] [address] [address] [address] Leni Hamlin Neutrophils/100 WBC (Bld) 77.2 % Critically high 43.0-75.0 [facility] Comment on above: Performed By: #### C MP, CRP #### [facility] [address] [address] [address] Leni Hamlin Platelet mean volume (Bld) [Entitic vol] 10.5 fL Normal 9.5-13.5 [facility] Comment on above: Performed By: #### C MP, CRP #### [facility] [address] [address] [address] Leni Hamlin PLT 138 103/ul Critically low 150-450 [facility] Comment on above: Performed By: #### C MP, CRP #### [facility] [address] [address] [address] Leni Hamlin RBC 5.22 106/ul Normal 4.70-6.10 [facility] Comment on above: Performed By: #### C MP, CRP #### [facility] [address] [address] [address] Leni Hamlin WBC 15.3 103/ul Critically high 4.0-11.0 [facility] Comment on above: Performed By: #### C MP, CRP #### [facility] [address] [address] [address] Leni Hamlin CRPon 10-02-2022 CRP 13.7 mg/dL Critically high <=1.0 [facility] Comment on above: Performed By: #### C VDAGS #### [facility] [address] [address] [address] Leni Hamlin PROF 14(COMP METB)on 11-22-2 022 Albumin [Mass/Vol] 2.5 g/dL Critically low 3.4-5.0 [facility] Comment on above: Performed By: #### C VDAGS #### [facility] [address] [place] [address] Dr. Leni Hamlin Albumin/Globulin [Mass ratio] 0.8 {ratio} Normal [facility] Comment on above: Performed By: #### C VDAGS #### [facility] [address] [address] [address] Leni Hamlin ALP [Catalytic activity/Vol] 54 U/L Normal 46-116 [facility] Comment on above: Performed By: #### C VDAGS #### [facility] [address] [place] [address] Dr. Leni Hamlin ALT [Catalytic activity/Vol] 13 U/L Critically low 16-63 [facility] Comment on above: Performed By: #### C VDAGS #### [facility] [address] [place] [address] Dr. Leni Hamlin Anion gap [Moles/Vol] 10.6 mmol/L Normal [facility] Comment on above: Performed By: #### C VDAGS #### [facility] [address] [place] [address] Dr. Leni Hamlin AST [Catalytic activity/Vol] 9 U/L Critically low 15-37 [facility] Comment on above: Performed By: #### C VDAGS #### [facility] [address] [place] [address] Dr. Leni Hamlin Bilirubin [Mass/Vol] 0.3 mg/dL Normal 0.2-1.0 [facility] Comment on above: Performed By: #### C VDAGS #### [facility] [address] [place] [address] Dr. Leni Hamlin Calcium [Mass/Vol] 8.5 mg/dL Normal 8.5-10.1 [facility] Comment on above: Performed By: #### C VDAGS #### [facility] [address] [place] [address] Dr. Leni Hamlin Chloride [Moles/Vol] 104 mmol/L Normal 98-107 [facility] Comment on above: Performed By: #### C VDAGS #### [facility] [address] [place] [address] Dr. Leni Hamlin CO2 [Moles/Vol] 27.5 mmol/L Normal 21.0-32.0 [facility] Comment on above: Performed By: #### C VDAGS #### [facility] [address] [address] [address] Leni Hamlin Creatinine [Mass/Vol] 1.26 mg/dL Normal 0.70-1.30 [facility] Comment on above: Performed By: #### C VDAGS #### [facility] [address] [place] [address] Dr. Leni Hamlin EGFR-AF KUWAITI >60 Normal >=60 [facility] Comment on above: Performed By: #### C VDAGS #### [facility] [address] [place] [address] Dr. Leni Hamlin EGFR-NON AF [place]I 56 mL/min/1.73m2 Critically low >=60 [facility] Comment on above: Performed By: #### C VDAGS #### [facility] [address] [place] [address] Dr. Leni Hamlin Globulin (S) [Mass/Vol] 3.3 g/dL Normal [facility] Comment on above: Performed By: #### C VDAGS #### [facility] [address] [place] [address] Dr. Leni Hamlin Glucose [Mass/Vol] 122 mg/dL Critically high 74-106 T [facility] Comment on above: Performed By: #### C VDAGS #### [facility] [address] [place] [address] Dr. Leni Hamlin Potassium [Moles/Vol] 4.1 mmol/L Normal 3.5-5.1 [facility] Comment on above: Performed By: #### C VDAGS #### [facility] [address] [place] [address] Dr. Leni Hamlin Protein [Mass/Vol] 5.8 g/dL Critically low 6.4-8.2 Th e [facility] Comment on above: Performed By: #### C VDAGS #### [facility] [address] [place] [address] Dr. Leni Hamlin Sodium [Moles/Vol] 138 mmol/L Normal 136-145 [facility] Comment on above: Performed By: #### C VDAGS #### [facility] [address] [place] [address] Dr. Leni Hamlin Urea nitrogen [Mass/Vol] 20.0 mg/dL Critically high 7.0-18.0 [facility] Comment on above: Performed By: #### C VDAGS #### [facility] [address] [place] [address] Dr. Leni Hamlin Urea nitrogen/Creatinine [Mass ratio] 15.9 mg/mg Normal [facility] Comment on above: Performed By: #### C VDAGS #### [facility] [address] [place] [address] Dr. Leni Hamlin CBC AUTO DIFFon 10-01-2022 BASO # 0.1 103/ul Normal 0.0-0.1 [facility] Comment on above: Performed By: #### C MP, CRP #### [facility] [address] [place] [address] Dr. Leni Hamlin Basophils/100 WBC (Bld) 0.3 % Normal 0.2-2.0 [facility] Comment on above: Performed By: #### C MP, CRP #### [facility] [address] [place] [address] Dr. Leni Hamlin EO # 0.2 103/ul Normal 0.0-0.7 [facility] Comment on above: Performed By: #### C MP, CRP #### [facility] [address] [place] [address] Dr. Leni Hamlin Eosinophils/100 WBC (Bld) 0.8 % Critically low 0.9-7.0 [facility] Comment on above: Performed By: #### C MP, CRP #### [facility] [address] [place] [address] Dr. Leni Hamlin Erythrocyte distribution width (RBC) [Ratio] 13.6 % Normal 11.0-15.0 [facility] Comment on above: Performed By: #### C MP, CRP #### [facility] [address] [place] [address] Dr. Leni Hamlin Hematocrit (Bld) [Volume fraction] 49.0 % Normal 42.0-54.0 [facility] Comment on above: Performed By: #### C MP, CRP #### [facility] [address] [place] [address] Dr. Leni Hamlin Hemoglobin (Bld) [Mass/Vol] 16.0 g/dL Normal 14.0-18.0 [facility] Comment on above: Performed By: #### C MP, CRP #### [facility] [address] [place] [address] Dr. Leni Hamlin IG # 0.24 10e3/ul Critically high 0.00-0.03 [facility] Comment on above: Performed By: #### C MP, CRP #### [facility] [address] [place] [address] Dr. Leni Hamlin IG % 1.2 % Critically high 0.0-0.5 [facility] Comment on above: Performed By: #### C MP, CRP #### [facility] [address] [place] [address] Dr. Leni Hamlin LYMPH # 1.6 103/ul Normal 1.2-3.8 [facility] Comment on above: Performed By: #### C MP, CRP #### [facility] [address] [place] [address] Dr. Leni Hamlin Lymphocytes/100 WBC (Bld) 8.0 % Critically low 20.5-60.0 [facility] Comment on above: Performed By: #### C MP, CRP #### [facility] [address] [place] [address] Dr. Leni Hamlin MANUAL DIFF REQ NO Normal [facility] Comment on above: Performed By: #### C MP, CRP #### [facility] [address] [address] [address] Leni Hamlin MCH (RBC) [Entitic mass] 29.4 pg Normal 25.9-34.0 [facility] Comment on above: Performed By: #### C MP, CRP #### [facility] [address] [place] [address] Dr. Leni Hamlin MCHC (RBC) [Mass/Vol] 32.7 g/dL Normal 29.9-35.2 [facility] Comment on above: Performed By: #### C MP, CRP #### [facility] [address] [place] [address] Dr. Leni Hamlin MCV (RBC) [Entitic vol] 90.1 fL Normal 80.0-94.0 [facility] Comment on above: Performed By: #### C MP, CRP #### [facility] [address] [place] [address] Dr. Leni Hamlin MONO # 1.0 103/ul Critically high 0.3-0.8 [facility] Comment on above: Performed By: #### C MP, CRP #### [facility] [address] [place] [address] Dr. Leni Hamlin Monocytes/100 WBC (Bld) 5.1 % Normal 1.7-12.0 [facility] Comment on above: Performed By: #### C MP, CRP #### [facility] [address] [place] [address] Dr. Leni Hamlin NEUT # 16.8 103/ul Critically high 1.4-6.5 [facility] Comment on above: Performed By: #### C MP, CRP #### [facility] [address] [place] [address] Dr. Leni Hamlin Neutrophils/100 WBC (Bld) 84.6 % Critically high 43.0-75.0 [facility] Comment on above: Performed By: #### C MP, CRP #### [facility] [address] [place] [address] Dr. Leni Hamlin Platelet mean volume (Bld) [Entitic vol] 9.7 fL Normal 9.5-13.5 [facility] Comment on above: Performed By: #### C MP, CRP #### [facility] [address] [address] [address] Leni Hamlin PLT 138 103/ul Critically low 150-450 [facility] Comment on above: Performed By: #### C MP, CRP #### [facility] [address] [address] [address] Leni Hamlin RBC 5.44 106/ul Normal 4.70-6.10 [facility] Comment on above: Performed By: #### C MP, CRP #### [facility] [address] [address] [address] Leni Hamlin WBC 19.8 103/ul Critically high 4.0-11.0 [facility] Comment on above: Performed By: #### C MP, CRP #### [facility] [address] [place] [address] Dr. Leni Hamlin BASO # 0.1 103/ul Normal 0.0-0.1 [facility] Comment on above: Performed By: #### B MP, BNP #### [facility] [address] [address] [address] Leni Hamlin Basophils/100 WBC (Bld) 0.3 % Normal 0.2-2.0 [facility] Comment on above: Performed By: #### B MP, BNP #### [facility] [address] [address] [address] Leni Hamlin EO # 0.1 103/ul Normal 0.0-0.7 [facility] Comment on above: Performed By: #### B MP, BNP #### [facility] [address] [address] [address] Leni Hamlin Eosinophils/100 WBC (Bld) 0.7 % Critically low 0.9-7.0 [facility] Comment on above: Performed By: #### B MP, BNP #### [facility] [address] [address] [address] Leni Hamlin Erythrocyte distribution width (RBC) [Ratio] 13.6 % Normal 11.0-15.0 [facility] Comment on above: Performed By: #### B MP, BNP #### [facility] [address] [place] [address] Dr. Leni Hamlin Hematocrit (Bld) [Volume fraction] 46.9 % Normal 42.0-54.0 [facility] Comment on above: Performed By: #### B MP, BNP #### [facility] [address] [place] [address] Dr. Leni Hamlin Hemoglobin (Bld) [Mass/Vol] 15.5 g/dL Normal 14.0-18.0 [facility] Comment on above: Performed By: #### B MP, BNP #### [facility] [address] [place] [address] Dr. Leni Hamlin IG # 0.16 10e3/ul Critically high 0.00-0.03 [facility] Comment on above: Performed By: #### B MP, BNP #### [facility] [address] [place] [address] Dr. Leni Hamlin IG % 0.9 % Critically high 0.0-0.5 [facility] Comment on above: Performed By: #### B MP, BNP #### [facility] [address] [place] [address] Dr. Leni Hamlin LYMPH # 1.8 103/ul Normal 1.2-3.8 [facility] Comment on above: Performed By: #### B MP, BNP #### [facility] [address] [place] [address] Dr. Leni Hamlin Lymphocytes/100 WBC (Bld) 9.7 % Critically low 20.5-60.0 [facility] Comment on above: Performed By: #### B MP, BNP #### [facility] [address] [place] [address] Dr. Leni Hamlin MANUAL DIFF REQ NO Normal [facility] Comment on above: Performed By: #### B MP, BNP #### [facility] [address] [place] [address] Dr. Leni Hamlin MCH (RBC) [Entitic mass] 29.2 pg Normal 25.9-34.0 [facility] Comment on above: Performed By: #### B MP, BNP #### [facility] [address] [place] [address] Dr. Leni Hamlin MCHC (RBC) [Mass/Vol] 33.0 g/dL Normal 29.9-35.2 [facility] Comment on above: Performed By: #### B MP, BNP #### [facility] [address] [place] [address] Dr. Leni Hamlin MCV (RBC) [Entitic vol] 88.3 fL Normal 80.0-94.0 [facility] Comment on above: Performed By: #### B MP, BNP #### [facility] [address] [place] [address] Dr. Leni Hamlin MONO # 1.4 103/ul Critically high 0.3-0.8 [facility] Comment on above: Performed By: #### B MP, BNP #### [facility] [address] [place] [address] Dr. Leni Hamlin Monocytes/100 WBC (Bld) 7.3 % Normal 1.7-12.0 [facility] Comment on above: Performed By: #### B MP, BNP #### [facility] [address] [place] [address] Dr. Leni Hamlin NEUT # 15.1 103/ul Critically high 1.4-6.5 [facility] Comment on above: Performed By: #### B MP, BNP #### [facility] [address] [place] [address] Dr. Leni Hamlin Neutrophils/100 WBC (Bld) 81.1 % Critically high 43.0-75.0 [facility] Comment on above: Performed By: #### B MP, BNP #### [facility] [address] [place] [address] Dr. Leni Hamlin Platelet mean volume (Bld) [Entitic vol] 10.0 fL Normal 9.5-13.5 [facility] Comment on above: Performed By: #### B MP, BNP #### [facility] [address] [place] [address] Dr. Leni Hamlin PLT 141 103/ul Critically low 150-450 [facility] Comment on above: Performed By: #### B MP, BNP #### [facility] [address] [place] [address] Dr. Leni Hamlin RBC 5.31 106/ul Normal 4.70-6.10 [facility] Comment on above: Performed By: #### B MP, BNP #### [facility] [address] [place] [address] Dr. Leni Hamlin WBC 18.7 103/ul Critically high 4.0-11.0 [facility] Comment on above: Performed By: #### B MP, BNP #### [facility] [address] [place] [address] Dr. Leni Hamlin CRPon 10-01-2022 CRP 16.0 mg/dL Critically high <=1.0 [facility] Comment on above: Performed By: #### C VDAGS #### [facility] [address] [place] [address] Dr. Leni Hamlin PROF 14(COMP METB)on 022 Albumin [Mass/Vol] 2.6 g/dL Critically low 3.4-5.0 [facility] Comment on above: Performed By: #### C MP, CRP #### [facility] [address] [place] [address] Dr. Leni Hamlin Albumin/Globulin [Mass ratio] 0.8 {ratio} Normal [facility] Comment on above: Performed By: #### C MP, CRP #### [facility] [address] [place] [address] Dr. Leni Hamlin ALP [Catalytic activity/Vol] 44 U/L Critically low 46-116 [facility] Comment on above: Performed By: #### C MP, CRP #### [facility] [address] [place] [address] Dr. Leni Hamlin ALT [Catalytic activity/Vol] 12 U/L Critically low 16-63 [facility] Comment on above: Performed By: #### C MP, CRP #### [facility] [address] [place], [place] [id number] Dr. Leni Hamlin Anion gap [Moles/Vol] 8.7 mmol/L Normal [facility] Comment on above: Performed By: #### C MP, CRP #### [facility] [address] [place] [address] Dr. Leni Hamlin AST [Catalytic activity/Vol] 10 U/L Critically low 15-37 [facility] Comment on above: Performed By: #### C MP, CRP #### [facility] [address] [place] [address] Dr. Leni Hamlin Bilirubin [Mass/Vol] 0.8 mg/dL Normal 0.2-1.0 [facility] Comment on above: Performed By: #### C MP, CRP #### [facility] [address] [place] [address] Dr. Leni Hamlin Calcium [Mass/Vol] 8.3 mg/dL Critically low 8.5-10.1 [facility] Comment on above: Performed By: #### C MP, CRP #### [facility] [address] [place] [address] Dr. Leni Hamlin Chloride [Moles/Vol] 103 mmol/L Normal 98-107 [facility] Comment on above: Performed By: #### C MP, CRP #### [facility] [address] [place] [address] Dr. Leni Hamlin CO2 [Moles/Vol] 28.2 mmol/L Normal 21.0-32.0 [facility] Comment on above: Performed By: #### C MP, CRP #### [facility] [address] [place] [address] Dr. Leni Hamlin Creatinine [Mass/Vol] 1.24 mg/dL Normal 0.70-1.30 [facility] Comment on above: Performed By: #### C MP, CRP #### [facility] [address] [place] [address] Dr. Leni Hamlin EGFR-AF [place] >60 Normal >=60 [facility] Comment on above: Performed By: #### C MP, CRP #### [facility] [address] [place] [address] Dr. Leni Hamlin EGFR-NON AF [place] 57 mL/min/1.73m2 Critically low >=60 [facility] Comment on above: Performed By: #### C MP, CRP #### [facility] [address] [address] [address] Leni Hamlin Globulin (S) [Mass/Vol] 3.2 g/dL Normal [facility] Comment on above: Performed By: #### C MP, CRP #### [facility] [address] [address] [address] Leni Hamlin Glucose [Mass/Vol] 111 mg/dL Critically high 74-106 T [facility] Comment on above: Performed By: #### C MP, CRP #### [facility] [address] [address] [address] Leni Hamlin Potassium [Moles/Vol] 3.9 mmol/L Normal 3.5-5.1 [facility] Comment on above: Performed By: #### C MP, CRP #### [facility] [address] [address] [address] Leni Hamlin Protein [Mass/Vol] 5.8 g/dL Critically low 6.4-8.2 Th [facility] Comment on above: Performed By: #### C MP, CRP #### [facility] [address] [address] [address] Leni Hamlin Sodium [Moles/Vol] 136 mmol/L Normal 136-145 [facility] Comment on above: Performed By: #### C MP, CRP #### [facility] [address] [address] [address] Leni Hamlin Urea nitrogen [Mass/Vol] 17.0 mg/dL Normal 7.0-18.0 [facility] Comment on above: Performed By: #### C MP, CRP #### [facility] [address] [address] [address] Leni Hamlin Urea nitrogen/Creatinine [Mass ratio] 13.7 mg/mg Normal [facility] Comment on above: Performed By: #### C MP, CRP #### [facility] [address] [place] [address] Dr. Leni Hamlin C. DIFF PCRon 09-30-2022 C. DIFFICILE PCR Positive Critically abnormal NEGATIVE [facility] Comment on above: Performed By: #### C VDAGS #### [facility] [address] [place] [address] Dr. Leni Hamlin CBC AUTO DIFFon 09-30-2022 BASO # 0.0 103/ul Normal 0.0-0.1 [facility] Comment on above: Performed By: #### C BC #### [facility] [address] [place] [address] Dr. Leni Hamlin Basophils/100 WBC (Bld) 0.3 % Normal 0.2-2.0 [facility] Comment on above: Performed By: #### C BC #### [facility] [address] [place] [address] Dr. Leni Hamlin EO # 0.1 103/ul Normal 0.0-0.7 [facility] Comment on above: Performed By: #### C BC #### [facility] [address] [place] [address] Dr. Leni Hamlin Eosinophils/100 WBC (Bld) 0.8 % Critically low 0.9-7.0 [facility] Comment on above: Performed By: #### C BC #### [facility] [address] [place] [address] Dr. Leni Hamlin Erythrocyte distribution width (RBC) [Ratio] 13.4 % Normal 11.0-15.0 [facility] Comment on above: Performed By: #### C BC #### [facility] [address] [place] [address] Dr. Leni Hamlin Hematocrit (Bld) [Volume fraction] 50.4 % Normal 42.0-54.0 [facility] Comment on above: Performed By: #### C BC #### [facility] [address] [place] [address] Dr. Leni Hamlin Hemoglobin (Bld) [Mass/Vol] 16.2 g/dL Normal 14.0-18.0 [facility] Comment on above: Performed By: #### C BC #### [facility] [address] [address] [address] Leni Hamlin IG # 0.13 10e3/ul Critically high 0.00-0.03 [facility] Comment on above: Performed By: #### C BC #### [facility] [address] [address] [address] Leni Hamlin IG % 0.9 % Critically high 0.0-0.5 [facility] Comment on above: Performed By: #### C BC #### [facility] [address] [place] [address] Dr. Leni Hamlin LYMPH # 1.7 103/ul Normal 1.2-3.8 [facility] Comment on above: Performed By: #### C BC #### [facility] [address] [place] [address] Dr. Leni Hamlin Lymphocytes/100 WBC (Bld) 11.1 % Critically low 20.5-60.0 [facility] Comment on above: Performed By: #### C BC #### [facility] [address] [place] [address] Dr. Leni Hamlin MANUAL DIFF REQ NO Normal [facility] Comment on above: Performed By: #### C BC #### [facility] [address] [place] [address] Dr. Leni Hamlin MCH (RBC) [Entitic mass] 28.8 pg Normal 25.9-34.0 [facility] Comment on above: Performed By: #### C BC #### [facility] [address] [place] [address] Dr. Leni Hamlin MCHC (RBC) [Mass/Vol] 32.1 g/dL Normal 29.9-35.2 [facility] Comment on above: Performed By: #### C BC #### [facility] [address] [place] [address] Dr. Leni Hamlin MCV (RBC) [Entitic vol] 89.7 fL Normal 80.0-94.0 [facility] Comment on above: Performed By: #### C BC #### [facility] [address] [id number] [address] Leni Hamlin MONO # 1.5 103/ul Critically high 0.3-0.8 [facility] Comment on above: Performed By: #### C BC #### [facility] [address] [id number] [address] Leni Hamlin Monocytes/100 WBC (Bld) 9.8 % Normal 1.7-12.0 [facility] Comment on above: Performed By: #### C BC #### [facility] [address] [address] [address] Leni Hamlin NEUT # 11.7 103/ul Critically high 1.4-6.5 [facility] Comment on above: Performed By: #### C BC #### [facility] [address] [place] [address] Dr. Leni Hamlin Neutrophils/100 WBC (Bld) 77.1 % Critically high 43.0-75.0 [facility] Comment on above: Performed By: #### C BC #### [facility] [address] [address] [address] Leni Hamlin Platelet mean volume (Bld) [Entitic vol] 9.9 fL Normal 9.5-13.5 [facility] Comment on above: Performed By: #### C BC #### [facility] [address] [place], [place] [id number] Dr. Leni Hamlin PLT 156 103/ul Normal 150-450 [facility] Comment on above: Performed By: #### C BC #### [facility] [address] [place] [address] Dr. Leni Hamlin RBC 5.62 106/ul Normal 4.70-6.10 [facility] Comment on above: Performed By: #### C BC #### [facility] [address] [id number] [address] Leni Hamlin WBC 15.2 103/ul Critically high 4.0-11.0 [facility] Comment on above: Performed By: #### C BC #### [facility] [address] [place] [address] Dr. Leni Hamlin CRPon 09-30-2022 CRP 7.6 mg/dL Critically high <=1.0 [facility] Comment on above: Performed By: #### C RP #### [facility] [address] [place] [address] Dr. Leni Hamlin PROF 14(COMP METB)on 022 Albumin [Mass/Vol] 2.8 g/dL Critically low 3.4-5.0 Th [facility] Comment on above: Performed By: #### C RP #### [facility] [address] [place] [address] Dr. Leni Hamlin Albumin/Globulin [Mass ratio] 0.9 {ratio} Normal [facility] Comment on above: Performed By: #### C RP #### [facility] [address] [place] [address] Dr. Leni Hamlin ALP [Catalytic activity/Vol] 45 U/L Critically low 46-116 [facility] Comment on above: Performed By: #### C RP #### [facility] [address] [place] [address] Dr. Leni Hamlin ALT [Catalytic activity/Vol] 17 U/L Normal 16-63 [facility] Comment on above: Performed By: #### C RP #### [facility] [address] [place] [address] Dr. Leni Hamlin Anion gap [Moles/Vol] 8.4 mmol/L Normal [facility] Comment on above: Performed By: #### C RP #### [facility] [address] [place] [address] Dr. Leni Hamlin AST [Catalytic activity/Vol] 9 U/L Critically low 15-37 [facility] Comment on above: Performed By: #### C RP #### [facility] [address] [place] [address] Dr. Leni Hamlin Bilirubin [Mass/Vol] 0.6 mg/dL Normal 0.2-1.0 [facility] Comment on above: Performed By: #### C RP #### [facility] [address] [place] [address] Dr. Leni Hamlin Calcium [Mass/Vol] 8.6 mg/dL Normal 8.5-10.1 [facility] Comment on above: Performed By: #### C RP #### [facility] [address] [address] [address] Leni Hamlin Chloride [Moles/Vol] 104 mmol/L Normal 98-107 [facility] Comment on above: Performed By: #### C RP #### [facility] [address] [place] [address] Dr. Leni Hamlin CO2 [Moles/Vol] 29.6 mmol/L Normal 21.0-32.0 [facility] Comment on above: Performed By: #### C RP #### [facility] [address] [place] [address] Dr. Leni Hamlin Creatinine [Mass/Vol] 1.23 mg/dL Normal 0.70-1.30 [facility] Comment on above: Performed By: #### C RP #### [facility] [address] [place] [address] Dr. Leni Hamlin EGFR-AF KUWAITI >60 Normal >=60 [facility] Comment on above: Performed By: #### C RP #### [facility] [address] [place] [address] Dr. Leni Hamlin EGFR-NON AF KUWAITI 58 mL/min/1.73m2 Critically low >=60 [facility] Comment on above: Performed By: #### C RP #### [facility] [address] [place] [address] Dr. Leni Hamlin Globulin (S) [Mass/Vol] 3.0 g/dL Normal [facility] Comment on above: Performed By: #### C RP #### [facility] [address] [place] [address] Dr. Leni Hamlin Glucose [Mass/Vol] 113 mg/dL Critically high 74-106 [facility] Comment on above: Performed By: #### C RP #### [facility] [address] [place] [address] Dr. Leni Hamlin Potassium [Moles/Vol] 4.0 mmol/L Normal 3.5-5.1 [facility] Comment on above: Performed By: #### C RP #### [facility] [address] [place] [address] Dr. Leni Hamlin Protein [Mass/Vol] 5.8 g/dL Critically low 6.4-8.2 [facility] Comment on above: Performed By: #### C RP #### [facility] [address] [place] [address] Dr. Leni Hamlin Sodium [Moles/Vol] 138 mmol/L Normal 136-145 [facility] Comment on above: Performed By: #### C RP #### [facility] [address] [place] [address] Dr. Leni Hamlin Urea nitrogen [Mass/Vol] 17.0 mg/dL Normal 7.0-18.0 [facility] Comment on above: Performed By: #### C RP #### [facility] [address] [place] [address] Dr. Leni Hamlin Urea nitrogen/Creatinine [Mass ratio] 13.8 mg/mg Normal [facility] Comment on above: Performed By: #### C RP #### [facility] [address] [place] [address] Dr. Leni Hamlin CBC AUTO DIFFon 09-29-2022 BASO # 0.1 103/ul Normal 0.0-0.1 [facility] Comment on above: Performed By: #### C VDAGS #### [facility] [address] [place] [address] Dr. Leni Hamlin Basophils/100 WBC (Bld) 0.4 % Normal 0.2-2.0 [facility] Comment on above: Performed By: #### C VDAGS #### [facility] [address] [place] [address] Dr. Leni Hamlin EO # 0.1 103/ul Normal 0.0-0.7 [facility] Comment on above: Performed By: #### C VDAGS #### [facility] [address] [place] [address] Dr. Leni Hamlin Eosinophils/100 WBC (Bld) 0.9 % Normal 0.9-7.0 [facility] Comment on above: Performed By: #### C VDAGS #### [facility] [address] [place] [address] Dr. Leni Hamlin Erythrocyte distribution width (RBC) [Ratio] 13.2 % Normal 11.0-15.0 [facility] Comment on above: Performed By: #### C VDAGS #### [facility] [address] [place] [address] Dr. Leni Hamlin Hematocrit (Bld) [Volume fraction] 53.1 % Normal 42.0-54.0 [facility] Comment on above: Performed By: #### C VDAGS #### [facility] [address] [place] [address] Dr. Leni Hamlin Hemoglobin (Bld) [Mass/Vol] 17.3 g/dL Normal 14.0-18.0 [facility] Comment on above: Performed By: #### C VDAGS #### [facility] [address] [place] [address] Dr. Leni Hamlin IG # 0.30 10e3/ul Critically high 0.00-0.03 [facility] Comment on above: Performed By: #### C VDAGS #### [facility] [address] [place] [address] Dr. Leni Hamlin IG % 2.2 % Critically high 0.0-0.5 [facility] Comment on above: Performed By: #### C VDAGS #### [facility] [address] [place] [address] Dr. Leni Hamlin LYMPH # 1.5 103/ul Normal 1.2-3.8 [facility] Comment on above: Performed By: #### C VDAGS #### [facility] [address] [place] [address] Dr. Leni Hamlin Lymphocytes/100 WBC (Bld) 10.5 % Critically low 20.5-60.0 [facility] Comment on above: Performed By: #### C VDAGS #### [facility] [address] [place] [address] Dr. Leni Hamlin MANUAL DIFF REQ NO Normal [facility] Comment on above: Performed By: #### C VDAGS #### [facility] [address] [place] [address] Dr. Leni Hamlin MCH (RBC) [Entitic mass] 29.0 pg Normal 25.9-34.0 [facility] Comment on above: Performed By: #### C VDAGS #### [facility] [address] [place] [address] Dr. Leni Hamlin MCHC (RBC) [Mass/Vol] 32.6 g/dL Normal 29.9-35.2 [facility] Comment on above: Performed By: #### C VDAGS #### [facility] [address] [place] [address] Dr. Leni Hamlin MCV (RBC) [Entitic vol] 88.9 fL Normal 80.0-94.0 [facility] Comment on above: Performed By: #### C VDAGS #### [facility] [address] [place] [address] Dr. Leni Hamlin MONO # 0.8 103/ul Normal 0.3-0.8 [facility] Comment on above: Performed By: #### C VDAGS #### [facility] [address] [place] [address] Dr. Leni Hamlin Monocytes/100 WBC (Bld) 6.0 % Normal 1.7-12.0 [facility] Comment on above: Performed By: #### C VDAGS #### [facility] [address] [place] [address] Dr. Leni Hamlin NEUT # 11.2 103/ul Critically high 1.4-6.5 [facility] Comment on above: Performed By: #### C VDAGS #### [facility] [address] [place] [address] Dr. Leni Hamlin Neutrophils/100 WBC (Bld) 80.0 % Critically high 43.0-75.0 [facility] Comment on above: Performed By: #### C VDAGS #### [facility] [address] [address] [address] Leni Hamlin Platelet mean volume (Bld) [Entitic vol] 9.6 fL Normal 9.5-13.5 [facility] Comment on above: Performed By: #### C VDAGS #### [facility] [address] [address] [address] Leni Hamlin PLT 186 103/ul Normal 150-450 [facility] Comment on above: Performed By: #### C VDAGS #### [facility] [address] [address] [address] Leni Hamlin RBC 5.97 106/ul Normal 4.70-6.10 [facility] Comment on above: Performed By: #### C VDAGS #### [facility] [address] [address] [address] Leni Hamlin WBC 13.9 103/ul Critically high 4.0-11.0 [facility] Comment on above: Performed By: #### C VDAGS #### [facility] [address] [place] [address] ABD/PELV W CONon [...] RAJESH CHACON Date: 2022-09-29 12:51 Normal [facility] Covid-19 PCR (CVDTBH)on 09-11 SARS-CoV-2 (COVID-19) RNA VENESSA+probe Ql (Unsp spec) Not detected Normal NOT DETECTED [facility] Comment on above: Result Comment: When diagnostic [...] for this test is supported by the It Program Manager of Health and Human Service's declaration that [...] Performed By: #### B MP, BNP #### [facility] [address] [place] [address] Dr. Leni Hamlin GI PANEL (PCR)on 09-29-2022 Adenovirus F 40/41 Not detected Normal NOT DETECTED [facility] Comment on above: Performed By: #### C RP #### [facility] [address] [place] [address] Dr. Leni Hamlin Astrovirus Not detected Normal NOT DETECTED The [facility] Comment on above: Performed By: #### C RP #### [facility] [address] [place] [address] Dr. Leni Duvall. Diff toxin A/B Not detected Normal NOT DETECTED [facility] Comment on above: Performed By: #### C RP #### [facility] [address] [place] [address] Dr. Leni Hamlin Campylobacter Not detected Normal NOT DETECTED The [facility] Comment on above: Performed By: #### C RP #### [facility] [address] [place] [address] Dr. Leni Hamlin Cryptosporidium Not detected Normal NOT DETECTED The [facility] Comment on above: Performed By: #### C RP #### [facility] [address] [address] [address] Leni Hamlin Cyclos. Cayetanensis Not detected Normal NOT DETECTED [facility] Comment on above: Performed By: #### C RP #### [facility] [address] [address] [address] Leni Hamlin E. Coli O157 Not Applicable Normal Not Applicable [facility] Comment on above: Performed By: #### C RP #### [facility] [address] [place] [address] Dr. Leni Hamlin E. histolytica Not detected Normal NOT DETECTED The [facility] Comment on above: Performed By: #### C RP #### [facility] [address] [place] [address] Dr. Leni Hamlin EAEC Not detected Normal NOT DETECTED The [facility] Comment on above: Performed By: #### C RP #### [facility] [address] [place] [address] Dr. Leni Hamlin EIEC Not detected Normal NOT DETECTED The [facility] Comment on above: Performed By: #### C RP #### [facility] [address] [place] [address] Dr. Leni Hamlin EPEC Not detected Normal NOT DETECTED The [facility] Comment on above: Performed By: #### C RP #### [facility] [address] [place] [address] Dr. Leni Hamlin ETEC Not detected Normal NOT DETECTED The [facility] Comment on above: Performed By: #### C RP #### [facility] [address] [place] [address] Dr. Leni Hamlin G. Lamblia Not detected Normal NOT DETECTED The [facility] Comment on above: Performed By: #### C RP #### [facility] [address] [place] [address] Dr. Leni Hamlin GIPANEL CONTROLS PASSED Normal The [facility] Comment on above: Performed By: #### C RP #### [facility] [address] [address] [address] Leni FRIEND RAGHU HEADER GI PANEL BACTERIA Normal T [facility] Comment on above: Performed By: #### C RP #### [facility] [address] [address] [address] Leni KAMARA ECOLI GI PANEL DIARRHEAGENIC E.COLI / SHIGELLA Normal [facility] Comment on above: Performed By: #### C RP #### [facility] [address] [address] [address] Leni KAMARA INFO SEE BELOW Normal [facility] Comment on above: Result Comment: EAEC - Enteroaggregative E. Coli EPEC- Enteropathogenic E. Coli ETEC- Enterotoxigenic E. Coli lt/st STEC- Shigella-like toxin-producing E. Coli stx1/stx2 EIEC- Shigella/Enteroinvasive E. Coli Performed By: #### C RP #### [facility] [address] [place] [address] Dr. Leni KAMARA PARASITES GI PANEL PARASITES Normal [facility] Comment on above: Performed By: #### C RP #### [facility] [address] [place] [address] Dr. Leni KAMARA VIRUS GI PANEL VIRUSES Normal [facility] Comment on above: Performed By: #### C RP #### [facility] [address] [address] [address] Leni Hamlni Norovirus GI/GII Not detected Normal NOT DETECTED [facility] Comment on above: Performed By: #### C RP #### [facility] [address] [place] [address] Dr. Leni Hamlin P. Shigelloides Not detected Normal NOT DETECTED [facility] Comment on above: Performed By: #### C RP #### [facility] [address] [place] [address] Dr. Leni Hamlin Rotavirus A Not detected Normal NOT DETECTED The [facility] Comment on above: Performed By: #### C RP #### [facility] [address] [address] [address] Leni Hamlin Salmonella Not detected Normal NOT DETECTED The [facility] Comment on above: Performed By: #### C RP #### [facility] [address] [place] [address] Dr. Leni Hamlin Sapovirus Not detected Normal NOT DETECTED The [facility] Comment on above: Performed By: #### C RP #### [facility] [address] [place] [address] Dr. Leni Hamlin STEC Not detected Normal NOT DETECTED The [facility] Comment on above: Performed By: #### C RP #### [facility] [address] [place] [address] Dr. Leni Hamlin Vibrio Not detected Normal NOT DETECTED The [facility] Comment on above: Performed By: #### C RP #### [facility] [address] [place] [address] Dr. Leni Hamlin Vibrio Cholera Not detected Normal NOT DETECTED The [facility] Comment on above: Performed By: #### C RP #### [facility] [address] [place] [address] Dr. Leni Hamlin Y. Enterocolitica Not detected Normal NOT DETECTED [facility] Comment on above: Performed By: #### C RP #### [facility] [address] [place] [address] Dr. Leni Hamlin PROF CHEM 8 (BAS METB)on Anion gap [Moles/Vol] 5.8 mmol/L Normal [facility] Comment on above: Performed By: #### C VDAGS #### [facility] [address] [place] [address] Dr. Leni Hamlin Calcium [Mass/Vol] 9.0 mg/dL Normal 8.5-10.[address] [facility] Comment on above: Performed By: #### C VDAGS #### [facility] [address] [place] [address] Dr. Leni Hamlin Chloride [Moles/Vol] 103 mmol/L Normal 98-107 [facility] Comment on above: Performed By: #### C VDAGS #### [facility] [address] [address] [address] Leni Hamlin CO2 [Moles/Vol] 31.7 mmol/L Normal 21.0-32.0 [facility] Comment on above: Performed By: #### C VDAGS #### [facility] [address] [address] [address] Leni Hamlin Creatinine [Mass/Vol] 1.28 mg/dL Normal 0.70-1.30 [facility] Comment on above: Performed By: #### C VDAGS #### [facility] [address] [address] [address] Leni Hamlin EGFR-AF [place]I >60 Normal >=60 [facility] Comment on above: Performed By: #### C VDAGS #### [facility] [address] [address] [address] Leni Hamlin EGFR-NON AF [place]I 55 mL/min/1.73m2 Critically low >=60 [facility] Comment on above: Performed By: #### C VDAGS #### [facility] [address] [address] [address] Leni Hamlin Glucose [Mass/Vol] 130 mg/dL Critically high 74-106 [facility] Comment on above: Performed By: #### C VDAGS #### [facility] [address] [address] [address] Leni Hamlin Potassium [Moles/Vol] 4.5 mmol/L Normal 3.5-5.1 [facility] Comment on above: Performed By: #### C VDAGS #### [facility] [address] [address] [address] Leni Hamlin Sodium [Moles/Vol] 136 mmol/L Normal 136-145 [facility] Comment on above: Performed By: #### C VDAGS #### [facility] [address] [address] [address] Leni Hamlin Urea nitrogen [Mass/Vol] 23.0 mg/dL Critically high 7.0-18.0 [facility] Comment on above: Performed By: #### C VDAGS #### [facility] [address] [address] [address] Leni Hamlin Urea nitrogen/Creatinine [Mass ratio] 18.0 mg/mg Normal [facility] Comment on above: Performed By: #### C VDAGS #### [facility] [address] [address] [address] Leni Hamlin Covid-19 PCR (CVDTBH)on 08-13 SARS-CoV-2 (COVID-19) RNA VENESSA+probe Ql (Unsp spec) Not detected Normal NOT DETECTED [facility] Comment on above: Result Comment: When diagnostic [...] for this test is supported by the [place] of Health and Human Service's declaration that [...] Performed By: #### C MP, CRP #### [facility] [address] [address] [address] Leni Hamlin Covid-19 PCR (CVDTBH)on 05-11 SARS-CoV-2 (COVID-19) RNA VENESSA+probe Ql (Unsp spec) Detected Critically abnormal NOT DETECTED [facility] Comment on above: Result Comment: This test is not yet approved or cleared by the [place] FDA. When there are no FDA-approved or cleared tests available, and other criteria are met, FDA can make tests available under an emergency access mechanism called an Emergency Use Authorization (EUA). The EUA for this test is supported by the It Program Manager of Health and Human Service's (HHS's) declaration [...] used). Performed By: #### C RP #### [facility] [address] [address] [address] Leni Hamlin [facility]11 SARS-CoV-2 (COVID-19) RNA VENESSA+probe Ql (Unsp spec) Not detected Normal NOT DETECTED [facility] Comment on above: Result Comment: This test is not yet approved or cleared by the [place] FDA. When there are no FDA-approved or cleared tests available, and other criteria are met, FDA can make tests available under an emergency access mechanism called an Emergency Use Authorization (EUA). The EUA for this test is supported by the It Program Manager of Health and Human Service's (HHS's) declaration [...] consistent with SARS-CoV-2. Performed By: #### C VDTBH #### [facility] [address] [place], [place] [address] Dr. Leni Hamlin SYMPTOMATIC COVID-19 ANTIGEN on 04-23-2022 EUA Statement SEE BELOW Normal [facility] Comment on above: Result Comment: This [...] sooner. Performed By: #### C VDAGS #### [facility] [address] [place] [address] [id number] [address] Leni Hamlin SARS-CoV-2 (COVID-19) RNA VENESSA+probe Ql (Unsp spec) Negative Normal NEGATIVE [facility] Comment on above: Performed By: #### C VDAGS #### [facility] [address] [place] [address] [address] [address] Leni Hamlin Cardiovascular Lab Reporton 03-22-2022 Cardiovascular Lab Report [facility] Patient Name: [facility] A MR #: [id number] Department of Physician: Modesto Becerra MD Medicine Service Date: 03/22/2022 Division of Birthdate: 1950 Cardiology Room #: Adult [facility] Services [place] [id number] Cardiovascular Laboratory Report PACEMAKER IMPLANT PROCEDURE NOTE [...] using modified seldinger technique using a 5 [place] micro-puncture needle on two occasions and 0.35 [...] pocket was created for the device. 6 [place] Safesheaths were placed over the wire. An active fixation Biotronik pacing lead was then delivered through the 6Fsheath to the right ventricle. After confirmation of lead position on orthogonal views (RUBALCAVA and PORTUGUESE) to confirm septal position, the screw was [...] lead position on orthogonal views (RUBALCAVA and PORTUGUESE), the screw was activated. After confirmation of [...] Device info: Biotronik Edora Model# 8DR-T Serial# [id number] RA lead: Model# Biotronik Solia S45 Serial# [id number] Sensin.5mV Threshold: 0.6V@0.5ms Impedance: 507 Ohms RV lead: Model# Biotronik Solia S53 Serial# [id number] Sensin.5mV Threshold: 0.6V@0.4ms Impedance: 663 Ohms POST [...] El (more content not included)... Normal The [facility] SPUTUM CULTUREon 03-17-2022 Epithelial cells LM Ql (Urine sed) Few Normal [facility] Comment on above: Performed By: #### B MP, BNP #### [facility] [address] [address] [address] Leni Hamlin Gram Stain Evaluation Comment Normal [facility] Comment on above: Result Comment: This specimen is of good quality and is acceptable for routine bacterial culture. Performed By: #### B MP, BNP #### [facility] [address] [address] [address] Leni Hamlin Lower Respiratory Culture Final report Normal [facility] Comment on above: Performed By: #### B MP, BNP #### [facility] [address] [address] [address] Leni Hamlin Result 1 Comment Normal [facility] Comment on above: Result Comment: Few gram negative rods. Performed By: #### B MP, BNP #### [facility] [address] [place] [address] Dr. Leni Hamlin Result Comment: Rout ine respiratory bola Result 2 Comment Normal [facility] Comment on above: Result Comment: Few gram positive cocci Performed By: #### B MP, BNP #### [facility] [address] [place] [address] Dr. Leni Hamlin Result 3 Comment Normal [facility] Comment on above: Result Comment: Rare gram positive rods Performed By: #### B MP, BNP #### [facility] [address] [place] [address] Dr. Leni Hamlin Result 4 Normal [facility] Comment on above: Performed By: #### B MP, BNP #### [facility] [address] [place] [address] Dr. Leni Hamlin White Blood Cells Few Normal [facility] Comment on above: Performed By: #### B MP, BNP #### [facility] [address] [place] [address] Dr. Leni Hamlin BNPon 03-15-2022 Natriuretic peptide B (Bld) [Mass/Vol] 429.0 pg/mL Normal <=900.0 [facility] Comment on above: Performed By: #### C MP, CRP #### [facility] [address] [place] [address] Dr. Leni Hamlin CBC AUTO DIFFon 03-15-2022 BASO # 0.0 103/ul Normal 0.0-0.1 [facility] Comment on above: Performed By: #### C VDAGS #### [facility] [address] [place] [address] Dr. Leni Hamlin Basophils/100 WBC (Bld) 0.2 % Normal 0.2-2.0 [facility] Comment on above: Performed By: #### C VDAGS #### [facility] [address] [place] [address] Dr. Leni Hamlin EO # 0.0 103/ul Normal 0.0-0.7 [facility] Comment on above: Performed By: #### C VDAGS #### [facility] [address] [place] [address] Dr. Leni Hamlin Eosinophils/100 WBC (Bld) 0.0 % Critically low 0.9-7.0 [facility] Comment on above: Performed By: #### C VDAGS #### [facility] [address] [place] [address] Dr. Leni Hamlin Erythrocyte distribution width (RBC) [Ratio] 13.6 % Normal 11.0-15.0 [facility] Comment on above: Performed By: #### C VDAGS #### [facility] [address] [place] [address] Dr. Leni Hamlin Hematocrit (Bld) [Volume fraction] 44.5 % Normal 42.0-54.0 [facility] Comment on above: Performed By: #### C VDAGS #### [facility] [address] [place] [address] Dr. Leni Hamlin Hemoglobin (Bld) [Mass/Vol] 13.8 g/dL Critically low 14.0-18.0 [facility] Comment on above: Performed By: #### C VDAGS #### [facility] [address] [place] [address] Dr. Leni Hamlin IG # 0.35 10e3/ul Critically high 0.00-0.03 [facility] Comment on above: Performed By: #### C VDAGS #### [facility] [address] [place] [address] Dr. Leni Hamlin IG % 2.4 % Critically high 0.0-0.5 [facility] Comment on above: Performed By: #### C VDAGS #### [facility] [address] [place] [address] Dr. Leni Hamlin LYMPH # 0.6 103/ul Critically low 1.2-3.8 [facility] Comment on above: Performed By: #### C VDAGS #### [facility] [address] [place] [address] Dr. Leni Hamlin Lymphocytes/100 WBC (Bld) 4.1 % Critically low 20.5-60.0 [facility] Comment on above: Performed By: #### C VDAGS #### [facility] [address] [place] [address] Dr. Leni Hamlin MANUAL DIFF REQ NO Normal [facility] Comment on above: Performed By: #### C VDAGS #### [facility] [address] [place] [address] Dr. Leni Hamlin MCH (RBC) [Entitic mass] 29.4 pg Normal 25.9-34.0 [facility] Comment on above: Performed By: #### C VDAGS #### [facility] [address] [place] [address] Dr. Leni Hamlin MCHC (RBC) [Mass/Vol] 31.0 g/dL Normal 29.9-35.2 [facility] Comment on above: Performed By: #### C VDAGS #### [facility] [address] [place] [address] Dr. Leni Hamlin MCV (RBC) [Entitic vol] 94.7 fL Critically high 80.0-94.0 [facility] Comment on above: Performed By: #### C VDAGS #### [facility] [address] [place] [address] Dr. Leni Hamlin MONO # 0.7 103/ul Normal 0.3-0.8 [facility] Comment on above: Performed By: #### C VDAGS #### [facility] [address] [place] [address] Dr. Leni Hamlin Monocytes/100 WBC (Bld) 4.7 % Normal 1.7-12.0 [facility] Comment on above: Performed By: #### C VDAGS #### [facility] [address] [place] [address] Dr. Leni Hamlin NEUT # 12.9 103/ul Critically high 1.4-6.5 [facility] Comment on above: Performed By: #### C VDAGS #### [facility] [address] [place] [address] Dr. Leni Hamlin Neutrophils/100 WBC (Bld) 88.6 % Critically high 43.0-75.0 [facility] Comment on above: Performed By: #### C VDAGS #### [facility] [address] [address] [address] Leni Hamlin Platelet mean volume (Bld) [Entitic vol] 10.2 fL Normal 9.5-13.5 [facility] Comment on above: Performed By: #### C VDAGS #### [facility] [address] [address] [address] Leni Hamlin PLT 176 103/ul Normal 150-450 [facility] Comment on above: Performed By: #### C VDAGS #### [facility] [address] [address] [address] Leni Hamlin RBC 4.70 106/ul Normal 4.70-6.10 [facility] Comment on above: Performed By: #### C VDAGS #### [facility] [address] [place] [address] Dr. Leni Hamlin WBC 14.6 103/ul Critically high 4.0-11.0 [facility] Comment on above: Performed By: #### C VDAGS #### [facility] [address] [place] [address] Dr. Leni Hamlin PROF CHEM 8 (BAS METB)on Anion gap [Moles/Vol] 10.2 mmol/L Normal [facility] Comment on above: Performed By: #### C MP, CRP #### [facility] [address] [place] [address] Dr. Leni Hamlin Calcium [Mass/Vol] 8.0 mg/dL Critically low 8.5-10.1 [facility] Comment on above: Performed By: #### C MP, CRP #### [facility] [address] [place] [address] Dr. Leni Hamlin Chloride [Moles/Vol] 104 mmol/L Normal 98-107 [facility] Comment on above: Performed By: #### C MP, CRP #### [facility] [address] [place] [address] Dr. Leni Hamlin CO2 [Moles/Vol] 28.2 mmol/L Normal 21.0-32.0 [facility] Comment on above: Performed By: #### C MP, CRP #### [facility] [address] [address] [address] Leni Hamlin Creatinine [Mass/Vol] 1.36 mg/dL Critically high 0.70-1.30 [facility] Comment on above: Performed By: #### C MP, CRP #### [facility] [address] [address] [address] Leni Hamlin EGFR-AF KU[place]I >60 Normal >=60 [facility] Comment on above: Performed By: #### C MP, CRP #### [facility] [address] [address] [address] Leni Hamlin EGFR-NON AF [place]I 51 mL/min/1.73m2 Critically low >=60 [facility] Comment on above: Performed By: #### C MP, CRP #### [facility] [address] [address] [address] Leni Hamlin Glucose [Mass/Vol] 205 mg/dL Critically high 74-106 [facility] Comment on above: Performed By: #### C MP, CRP #### [facility] [address] [address] [address] Leni Hamlin Potassium [Moles/Vol] 4.4 mmol/L Normal 3.5-5.1 [facility] Comment on above: Performed By: #### C MP, CRP #### [facility] [address] [address] [address] Leni Hamlin Sodium [Moles/Vol] 138 mmol/L Normal 136-145 [facility] Comment on above: Performed By: #### C MP, CRP #### [facility] [address] [address] [address] Leni Hamlin Urea nitrogen [Mass/Vol] 29.0 mg/dL Critically high 7.0-18.0 [facility] Comment on above: Performed By: #### C MP, CRP #### [facility] [address] [address] [address] Leni Hamlin Urea nitrogen/Creatinine [Mass ratio] 21.3 mg/mg Normal [facility] Comment on above: Performed By: #### C MP, CRP #### [facility] [address] [place] [address] Dr. Leni Hamlin BNPon 03-14-2022 Natriuretic peptide B (Bld) [Mass/Vol] 337.0 pg/mL Normal <=900.0 [facility] Comment on above: Performed By: #### C RP #### [facility] [address] [place] [address] Dr. Leni Hamlin CBC AUTO DIFFon 03-14-2022 BASO # 0.0 103/ul Normal 0.0-0.1 [facility] Comment on above: Performed By: #### C MP, CRP #### [facility] [address] [place] [address] Dr. Leni Hamlin Basophils/100 WBC (Bld) 0.2 % Normal 0.2-2.0 [facility] Comment on above: Performed By: #### C MP, CRP #### [facility] [address] [place] [address] Dr. Leni Hamlin EO # 0.0 103/ul Normal 0.0-0.7 [facility] Comment on above: Performed By: #### C MP, CRP #### [facility] [address] [place] [address] Dr. Leni Hamlin Eosinophils/100 WBC (Bld) 0.0 % Critically low 0.9-7.0 [facility] Comment on above: Performed By: #### C MP, CRP #### [facility] [address] [place] [address] Dr. Leni Hamlin Erythrocyte distribution width (RBC) [Ratio] 13.6 % Normal 11.0-15.0 [facility] Comment on above: Performed By: #### C MP, CRP #### [facility] [address] [place] [address] Dr. Leni Hamlin Hematocrit (Bld) [Volume fraction] 47.8 % Normal 42.0-54.0 [facility] Comment on above: Performed By: #### C MP, CRP #### [facility] [address] [address] [address] Leni Hamlin Hemoglobin (Bld) [Mass/Vol] 14.6 g/dL Normal 14.0-18.0 [facility] Comment on above: Performed By: #### C MP, CRP #### [facility] [address] [place] [address] Dr. Leni Hamlin IG # 0.22 10e3/ul Critically high 0.00-0.03 [facility] Comment on above: Performed By: #### C MP, CRP #### [facility] [address] [place] [address] Dr. Leni Hamlin IG % 1.3 % Critically high 0.0-0.5 [facility] Comment on above: Performed By: #### C MP, CRP #### [facility] [address] [place] [address] Dr. Leni Hamlin LYMPH # 0.5 103/ul Critically low 1.2-3.8 [facility] Comment on above: Performed By: #### C MP, CRP #### [facility] [address] [place] [address] Dr. Leni Hamlin Lymphocytes/100 WBC (Bld) 2.9 % Critically low 20.5-60.0 [facility] Comment on above: Performed By: #### C MP, CRP #### [facility] [address] [place] [address] Dr. Leni Hamlin MANUAL DIFF REQ NO Normal [facility] Comment on above: Performed By: #### C MP, CRP #### [facility] [address] [place] [address] Dr. Leni Hamlin MCH (RBC) [Entitic mass] 29.4 pg Normal 25.9-34.0 [facility] Comment on above: Performed By: #### C MP, CRP #### [facility] [address] [place] [address] Dr. Leni Hamlin MCHC (RBC) [Mass/Vol] 30.5 g/dL Normal 29.9-35.2 [facility] Comment on above: Performed By: #### C MP, CRP #### [facility] [address] [address] [address] Leni Hamlin MCV (RBC) [Entitic vol] 96.4 fL Critically high 80.0-94.0 [facility] Comment on above: Performed By: #### C MP, CRP #### [facility] [address] [address] [address] Leni Hamlin MONO # 1.1 103/ul Critically high 0.3-0.8 [facility] Comment on above: Performed By: #### C MP, CRP #### [facility] [address] [place] [address] Dr. Leni Hamlin Monocytes/100 WBC (Bld) 6.4 % Normal 1.7-12.0 [facility] Comment on above: Performed By: #### C MP, CRP #### [facility] [address] [place] [address] Dr. Leni Hamlin NEUT # 15.2 103/ul Critically high 1.4-6.5 [facility] Comment on above: Performed By: #### C MP, CRP #### [facility] [address] [place] [address] Dr. Leni Hamlin Neutrophils/100 WBC (Bld) 89.2 % Critically high 43.0-75.0 [facility] Comment on above: Performed By: #### C MP, CRP #### [facility] [address] [place] [address] Dr. Leni Hamlin Platelet mean volume (Bld) [Entitic vol] 10.4 fL Normal 9.5-13.5 [facility] Comment on above: Performed By: #### C MP, CRP #### [facility] [address] [place] [address] Dr. Leni Hamlin PLT 167 103/ul Normal 150-450 [facility] Comment on above: Performed By: #### C MP, CRP #### [facility] [address] [place] [address] Dr. Leni Hamlin RBC 4.96 106/ul Normal 4.70-6.10 [facility] Comment on above: Performed By: #### C MP, CRP #### [facility] [address] [address] [address] Leni Hamlin WBC 17.0 103/ul Critically high 4.0-11.0 [facility] Comment on above: Performed By: #### C MP, CRP #### [facility] [address] [place] [address] Dr. Leni Hamlin PROF CHEM 8 (BAS METB)on Anion gap [Moles/Vol] 7.0 mmol/L Normal [facility] Comment on above: Performed By: #### C VDAGS #### [facility] [address] [place] [address] Dr. Leni Hamlin Calcium [Mass/Vol] 8.3 mg/dL Critically low 8.5-10.1 [facility] Comment on above: Performed By: #### C VDAGS #### [facility] [address] [place] [address] Dr. Leni Hamlin Chloride [Moles/Vol] 102 mmol/L Normal 98-107 [facility] Comment on above: Performed By: #### C VDAGS #### [facility] [address] [place] [address] Dr. Leni Hamlin CO2 [Moles/Vol] 29.6 mmol/L Normal 21.0-32.0 [facility] Comment on above: Performed By: #### C VDAGS #### [facility] [address] [place] [address] Dr. Leni Hamlin Creatinine [Mass/Vol] 1.48 mg/dL Critically high 0.70-1.30 [facility] Comment on above: Performed By: #### C VDAGS #### [facility] [address] [place] [address] Dr. Leni Hamlin EGFR-AF [place] 56 mL/min/1.73m2 Critically low >=60 [facility] Comment on above: Performed By: #### C VDAGS #### [facility] [address] [place] [address] Dr. Leni Hamlin EGFR-NON AF [place] 47 mL/min/1.73m2 Critically low >=60 [facility] Comment on above: Performed By: #### C VDAGS #### [facility] [address] [place] [address] Dr. Leni Hamlin Glucose [Mass/Vol] 168 mg/dL Critically high 74-106 [facility] Comment on above: Performed By: #### C VDAGS #### [facility] [address] [place] [address] Dr. Leni Hamlin Potassium [Moles/Vol] 4.6 mmol/L Normal 3.5-5.1 [facility] Comment on above: Performed By: #### C VDAGS #### [facility] [address] [place] [address] Dr. Leni Hamlin Sodium [Moles/Vol] 134 mmol/L Critically low 136-145 [facility] Comment on above: Performed By: #### C VDAGS #### [facility] [address] [place] [address] Dr. Leni Hamlin Urea nitrogen [Mass/Vol] 29.0 mg/dL Critically high 7.0-18.0 [facility] Comment on above: Performed By: #### C VDAGS #### [facility] [address] [place] [address] Dr. Leni Hamlin Urea nitrogen/Creatinine [Mass ratio] 19.6 mg/mg Normal [facility] Comment on above: Performed By: #### C VDAGS #### [facility] [address] [place] [address] Dr. Leni Hamlin BNPon 03-13-2022 Natriuretic peptide B (Bld) [Mass/Vol] 501.0 pg/mL Normal <=900.0 [facility] Comment on above: Performed By: #### B MP, BNP #### [facility] [address] [place] [address] Dr. Leni Hamlin CBC W MANUAL DIFFon 03-13-20 22 ATYPICAL LYMPH # Normal [facility] Comment on above: Performed By: #### C VDAGS #### [facility] [address] [place] [address] Dr. Leni Hamlin ATYPICAL LYMPH % Normal [facility] Comment on above: Performed By: #### C VDAGS #### [facility] [address] [place] [address] Dr. Leni Hamlin BAND # 2.1 103/ul Critically high 0.0-0.3 [facility] Comment on above: Performed By: #### C VDAGS #### [facility] [address] [place] [address] Dr. Leni Hamlin BAND % 12 % Critically high 0-5 [facility] Comment on above: Performed By: #### C VDAGS #### [facility] [address] [place] [address] Dr. Leni Hamlin BASOM # 0.00 103/ul Normal 0.00-0.10 [facility] Comment on above: Performed By: #### C VDAGS #### [facility] [address] [place] [address] Dr. Leni Hamlin BASOM % 0.0 % Critically low 0.2-2.0 [facility] Comment on above: Performed By: #### C VDAGS #### [facility] [address] [place] [address] Dr. Leni Hamlin BLAST # Normal [facility] Comment on above: Performed By: #### C VDAGS #### [facility] [address] [place] [address] Dr. Leni Hamlin BLAST % Normal [facility] Comment on above: Performed By: #### C VDAGS #### [facility] [address] [place] [address] Dr. Leni Hamlin CORRECTED WBC Normal 4.0-11.0 [facility] Comment on above: Performed By: #### C VDAGS #### [facility] [address] [place] [address] Dr. Leni Hamlin EOS # 0.00 103/ul Normal 0.00-0.70 [facility] Comment on above: Performed By: #### C VDAGS #### [facility] [address] [place] [address] Dr. Leni Hamlin EOS% 0.0 % Critically low 0.9-7.0 [facility] Comment on above: Performed By: #### C VDAGS #### [facility] [address] [place] [address] Dr. Leni Hamlin HCT 51.2 % Normal 42.0-54.0 [facility] Comment on above: Performed By: #### C VDAGS #### [facility] [address] [place] [address] Dr. Leni Hamlin HGB 15.4 g/dl Normal 14.0-18.0 [facility] Comment on above: Performed By: #### C VDAGS #### [facility] [address] [place] [address] Dr. Leni Hamlin LYMPHM # 0.52 103/ul Critically low 1.20-3.80 [facility] Comment on above: Performed By: #### C VDAGS #### [facility] [address] [place] [address] Dr. Leni Hamlin LYMPHM% 3.0 % Critically low 20.5-60.0 [facility] Comment on above: Performed By: #### C VDAGS #### [facility] [address] [place] [address] Dr. Leni Hamlin MCH 29.6 pg Normal 25.9-34.0 [facility] Comment on above: Performed By: #### C VDAGS #### [facility] [address] [place] [address] Dr. Leni Hamlin MCHC 30.1 g/dl Normal 29.9-35.2 [facility] Comment on above: Performed By: #### C VDAGS #### [facility] [address] [place] [address] Dr. Leni Hamlin MCV 98.5 fL Critically high 80.0-94.0 [facility] Comment on above: Performed By: #### C VDAGS #### [facility] [address] [place] [address] Dr. Leni Hamlin METAMYELOCYTE # Normal [facility] Comment on above: Performed By: #### C VDAGS #### [facility] [address] [address] [address] Leni Hamlin METAMYELOCYTE % Normal [facility] Comment on above: Performed By: #### C VDAGS #### [facility] [address] [address] [address] Leni Hamlin MONOM# 0.86 103/ul Critically high 0.30-0.80 [facility] Comment on above: Performed By: #### C VDAGS #### [facility] [address] [address] [address] Leni Hamlin MONOM% 5.0 % Normal 1.7-12.0 [facility] Comment on above: Performed By: #### C VDAGS #### [facility] [address] [place] [address] Dr. Leni Hamlin MPV 10.0 fL Normal 9.5-13.5 [facility] Comment on above: Performed By: #### C VDAGS #### [facility] [address] [place] [address] Dr. Leni Hamlin MYELOCYTE # Normal [facility] Comment on above: Performed By: #### C VDAGS #### [facility] [address] [place] [address] Dr. Leni Hamlin MYELOCYTE % Normal [facility] Comment on above: Performed By: #### C VDAGS #### [facility] [address] [place] [address] Dr. Leni Hamlin NRBC Normal [facility] Comment on above: Performed By: #### C VDAGS #### [facility] [address] [address] [address] Leni Hamlin PLT 161 103/ul Normal 150-450 [facility] Comment on above: Performed By: #### C VDAGS #### [facility] [address] [place] [address] Dr. Leni Hamlin RBC 5.20 106/ul Normal 4.70-6.10 [facility] Comment on above: Performed By: #### C VDAGS #### [facility] [address] [address] [address] Leni Hamlin RDW 13.5 % Normal 11.0-15.0 [facility] Comment on above: Performed By: #### C VDAGS #### [facility] [address] [address] [address] Leni Hamlin SEG # 13.76 103/ul Critically high 1.40-6.50 [facility] Comment on above: Performed By: #### C VDAGS #### [facility] [address] [address] [address] Leni Hamlin SEG % 80.0 % Critically high 43.0-75.0 [facility] Comment on above: Performed By: #### C VDAGS #### [facility] [address] [address] [address] Leni Hamlin WBC 17.2 103/ul Critically high 4.0-11.0 [facility] Comment on above: Performed By: #### C VDAGS #### [facility] [address] [address] [address] Leni Hamlin PROF CHEM 8 (BAS METB)on Anion gap [Moles/Vol] 12.5 mmol/L Normal [facility] Comment on above: Performed By: #### C VDAGS #### [facility] [address] [address] [address] Leni Hamlin Calcium [Mass/Vol] 8.4 mg/dL Critically low 8.5-10.1 [facility] Comment on above: Performed By: #### C VDAGS #### [facility] [address] [address] [address] Leni Hamlin Chloride [Moles/Vol] 100 mmol/L Normal 98-107 [facility] Comment on above: Performed By: #### C VDAGS #### [facility] [address] [address] [address] Leni Hamlin CO2 [Moles/Vol] 26.7 mmol/L Normal 21.0-32.0 [facility] Comment on above: Performed By: #### C VDAGS #### [facility] [address] [place] [address] Dr. Leni Hamlin Creatinine [Mass/Vol] 1.87 mg/dL Critically high 0.70-1.30 [facility] Comment on above: Performed By: #### C VDAGS #### [facility] [address] [place] [address] Dr. Leni Hamlin EGFR-AF [place] 43 mL/min/1.73m2 Critically low >=60 [facility] Comment on above: Performed By: #### C VDAGS #### [facility] [address] [place] [address] Dr. Leni Hamlin EGFR-NON AF [place] 36 mL/min/1.73m2 Critically low >=60 [facility] Comment on above: Performed By: #### C VDAGS #### [facility] [address] [place] [address] Dr. Leni Hamlin Glucose [Mass/Vol] 222 mg/dL Critically high 74-106 T [facility] Comment on above: Performed By: #### C VDAGS #### [facility] [address] [place] [address] Dr. eLni Hamlin Potassium [Moles/Vol] 4.2 mmol/L Normal 3.5-5.1 [facility] Comment on above: Performed By: #### C VDAGS #### [facility] [address] [place] [address] Dr. Leni Hamlin Sodium [Moles/Vol] 135 mmol/L Critically low 136-145 [facility] Comment on above: Performed By: #### C VDAGS #### [facility] [address] [place] [address] Dr. Leni Hamlin Urea nitrogen [Mass/Vol] 25.0 mg/dL Critically high 7.0-18.0 [facility] Comment on above: Performed By: #### C VDAGS #### [facility] [address] [place] [address] Dr. Leni Hamlin Urea nitrogen/Creatinine [Mass ratio] 13.4 mg/mg Normal [facility] Comment on above: Performed By: #### C VDAGS #### [facility] [address] [place] [address] Dr. Leni Hamlin Anion gap [Moles/Vol] 10.7 mmol/L Normal [facility] Comment on above: Performed By: #### B MP, BNP #### [facility] [address] [place] [address] Dr. Leni Hamlin Calcium [Mass/Vol] 8.2 mg/dL Critically low 8.5-10.1 [facility] Comment on above: Performed By: #### B MP, BNP #### [facility] [address] [place] [address] Dr. Leni Hamlin Chloride [Moles/Vol] 101 mmol/L Normal 98-107 [facility] Comment on above: Performed By: #### B MP, BNP #### [facility] [address] [place] [address] Dr. Leni Hamlin CO2 [Moles/Vol] 30.0 mmol/L Normal 21.0-32.0 [facility] Comment on above: Performed By: #### B MP, BNP #### [facility] [address] [place] [address] Dr. Leni Hamlin Creatinine [Mass/Vol] 1.49 mg/dL Critically high 0.70-1.30 [facility] Comment on above: Performed By: #### B MP, BNP #### [facility] [address] [place] [address] Dr. Leni Hamlin EGFR-AF [place]I 56 mL/min/1.73m2 Critically low >=60 [facility] Comment on above: Performed By: #### B MP, BNP #### [facility] [address] [place] [address] Dr. Leni Hamlin EGFR-NON AF [place] 46 mL/min/1.73m2 Critically low >=60 [facility] Comment on above: Performed By: #### B MP, BNP #### [facility] [address] [place] [address] Dr. Leni Hamlin Glucose [Mass/Vol] 158 mg/dL Critically high 74-106 T [facility] Comment on above: Performed By: #### B MP, BNP #### [facility] [address] [place] [address] Dr. Leni Hamlin Potassium [Moles/Vol] 5.7 mmol/L Critically high 3.5-5.1 [facility] Comment on above: Performed By: #### B MP, BNP #### [facility] [address] [place] [address] Dr. Leni Hamlin Sodium [Moles/Vol] 136 mmol/L Normal 136-145 [facility] Comment on above: Performed By: #### B MP, BNP #### [facility] [address] [place] [address] Dr. Leni Hamlin Urea nitrogen [Mass/Vol] 19.0 mg/dL Critically high 7.0-18.0 [facility] Comment on above: Performed By: #### B MP, BNP #### [facility] [address] [place] [address] Dr. Leni Hamlin Urea nitrogen/Creatinine [Mass ratio] 12.8 mg/mg Normal [facility] Comment on above: Performed By: #### B MP, BNP #### [facility] [address] [place] [address] Dr. Leni Hamlin BNPon 03-12-2022 Natriuretic peptide B (Bld) [Mass/Vol] 405.0 pg/mL Normal <=900.0 [facility] Comment on above: Performed By: #### B MP, BNP #### [facility] [address] [place] [address] Dr. Leni Hamlin CBC AUTO DIFFon 03-12-2022 BASO # 0.1 103/ul Normal 0.0-0.1 [facility] Comment on above: Performed By: #### C BC #### [facility] [address] [place] [address] Dr. Leni Hamlin Basophils/100 WBC (Bld) 0.3 % Normal 0.2-2.0 [facility] Comment on above: Performed By: #### C BC #### [facility] [address] [address] [address] Leni Hamlin EO # 0.0 103/ul Normal 0.0-0.7 [facility] Comment on above: Performed By: #### C BC #### [facility] [address] [address] [address] Leni Hamlin Eosinophils/100 WBC (Bld) 0.1 % Critically low 0.9-7.0 [facility] Comment on above: Performed By: #### C BC #### [facility] [address] [place] [address] Dr. Leni Hamlin Erythrocyte distribution width (RBC) [Ratio] 13.3 % Normal 11.0-15.0 [facility] Comment on above: Performed By: #### C BC #### [facility] [address] [place] [address] Dr. Leni Hamlin Hematocrit (Bld) [Volume fraction] 52.2 % Normal 42.0-54.0 [facility] Comment on above: Performed By: #### C BC #### [facility] [address] [place] [address] Dr. Leni Hamlin Hemoglobin (Bld) [Mass/Vol] 16.5 g/dL Normal 14.0-18.0 [facility] Comment on above: Performed By: #### C BC #### [facility] [address] [place] [address] Dr. Leni Hamlin IG # 0.19 10e3/ul Critically high 0.00-0.03 [facility] Comment on above: Performed By: #### C BC #### [facility] [address] [place] [address] Dr. Leni Hamlin IG % 1.0 % Critically high 0.0-0.5 [facility] Comment on above: Performed By: #### C BC #### [facility] [address] [address] [address] Leni Hamlin LYMPH # 0.8 103/ul Critically low 1.2-3.8 [facility] Comment on above: Performed By: #### C BC #### [facility] [address] [place] [address] Dr. Leni Hamlin Lymphocytes/100 WBC (Bld) 3.8 % Critically low 20.5-60.0 [facility] Comment on above: Performed By: #### C BC #### [facility] [address] [place] [address] Dr. Leni Hamlin MANUAL DIFF REQ NO Normal [facility] Comment on above: Performed By: #### C BC #### [facility] [address] [place] [address] Dr. Leni Hamlin MCH (RBC) [Entitic mass] 29.6 pg Normal 25.9-34.0 [facility] Comment on above: Performed By: #### C BC #### [facility] [address] [place] [address] Dr. Leni Hamlin MCHC (RBC) [Mass/Vol] 31.6 g/dL Normal 29.9-35.2 [facility] Comment on above: Performed By: #### C BC #### [facility] [address] [place] [address] Dr. Leni Hamlin MCV (RBC) [Entitic vol] 93.7 fL Normal 80.0-94.0 [facility] Comment on above: Performed By: #### C BC #### [facility] [address] [place] [address] Dr. Leni Hamlin MONO # 1.6 103/ul Critically high 0.3-0.8 [facility] Comment on above: Performed By: #### C BC #### [facility] [address] [place] [address] Dr. Leni Hamlin Monocytes/100 WBC (Bld) 8.3 % Normal 1.7-12.0 [facility] Comment on above: Performed By: #### C BC #### [facility] [address] [place] [address] Dr. Leni Hamlin NEUT # 17.0 103/ul Critically high 1.4-6.5 [facility] Comment on above: Performed By: #### C BC #### [facility] [address] [address] [address] Leni Hamlin Neutrophils/100 WBC (Bld) 86.5 % Critically high 43.0-75.0 [facility] Comment on above: Performed By: #### C BC #### [facility] [address] [address] [address] Leni Hamlin Platelet mean volume (Bld) [Entitic vol] 10.0 fL Normal 9.5-13.5 [facility] Comment on above: Performed By: #### C BC #### [facility] [address] [address] [address] Leni Hamlin PLT 194 103/ul Normal 150-450 [facility] Comment on above: Performed By: #### C BC #### [facility] [address] [place] [address] Dr. Leni Hamlin RBC 5.57 106/ul Normal 4.70-6.10 [facility] Comment on above: Performed By: #### C BC #### [facility] [address] [place] [address] Dr. Leni Hamlin WBC 19.7 103/ul Critically high 4.0-11.0 [facility] Comment on above: Performed By: #### C BC #### [facility] [address] [place] [address] CSPINE WO CONon [...] by: CIERA HERNÁNDEZ Date: 2022-03-12 13:42 Normal [facility] CT HEAD WO [...] by: SUSAN KC Date: 2022-03-12 13:20 Normal [facility] CTA CHEST WO [...] CIERA HERNÁNDEZ Date: 2022-03-12 14:46 Normal [facility] CULTURE BLOODon 03-12-2022 Microscopic examination of blood, culture Culture Observations: NO GROWTH AT 5 DAYS. Normal [facility] Comment on above: Performed By: #### C MP, CRP #### [facility] [address] [address] [address] Leni Hamlin Microscopic examination of blood, culture Culture Observations: NO GROWTH AT 5 DAYS. Normal [facility] Comment on above: Performed By: #### C MP, CRP #### [facility] [address] [address] [address] Leni Hamlin Covid-19 PCR (CVDTB)on SARS-CoV-2 (COVID-19) RNA VENESSA+probe Ql (Unsp spec) Not detected Normal NOT DETECTED [facility] Comment on above: Result Comment: When diagnostic testing is negative, the possibility of a false negative should be considered in the context of a patient's recent exposures and the presence of clinical signs and symptoms consistent with SARS-CoV-2. This test is not yet approved or cleared by the [place] Food and Drug Administration (FDA). This test was developed by [employer], [place], [place]. The performance characteristics of this test were validated by The [facility]. The results are not intended to be used as the sole means for clinical diagnosis or patient management decisions. The [facility] is authorized under Clinical Laboratory Improvement Amendments [...] for this test is supported by the It Program Manager of Health and Human Service's declaration that [...] used). Performed By: #### C RP #### [facility] [address] [place] [address] Dr. Leni Hamlin D-DIMERon 03-12-2022 D-DIMER 6.00 mg/L FEU Critically high 0.19-0.50 [facility] Comment on above: Performed By: #### B MP, BNP #### [facility] [address] [place] [address] Dr. Leni Hamlin D-DIMER COMMENTS SEE BELOW Normal [facility] Comment on above: Result Comment: Incr [...] Performed By: #### B MP, BNP #### [facility] [address] [place] [address] Dr. Leni Hamlin ER URINE PROFILEon 2 Bilirubin Ql (U) Negative Normal NEGATIVE [facility] Comment on above: Performed By: #### C RP #### [facility] [address] [place] [address] Dr. Leni Hamlin Clarity (U) CLEAR Normal CLEAR [facility] Comment on above: Performed By: #### C RP #### [facility] [address] [place] [address] Dr. Leni Hamlin Color (U) YELLOW Normal YELLOW [facility] Comment on above: Performed By: #### C RP #### [facility] [address] [place] [address] Dr. Leni ELLIS A micrscopic examination will be performed if indicated. Normal [facility] Comment on above: Performed By: #### C RP #### [facility] [address] [place] [address] Dr. Leni Hamlin Glucose Ql (U) Negative Normal NEGATIVE [facility] Comment on above: Performed By: #### C RP #### [facility] [address] [place] [address] Dr. Leni Hamlin Hemoglobin Ql (U) SMALL Abnormal NEGATIVE [facility] Comment on above: Performed By: #### C RP #### [facility] [address] [place] [address] Dr. Leni Hamlin Ketones Ql (U) Negative Normal NEGATIVE [facility] Comment on above: Performed By: #### C RP #### [facility] [address] [place] [address] Dr. Leni Hamlin LEUKOCYTES Negative Normal NEGATIVE [facility] Comment on above: Performed By: #### C RP #### [facility] [address] [place] [address] Dr. Leni Hamlin Nitrite Ql (U) Negative Normal NEGATIVE [facility] Comment on above: Performed By: #### C RP #### [facility] [address] [place] [address] Dr. Leni Hamlin pH (U) 5.5 [pH] Normal 5-9 [facility] Comment on above: Performed By: #### C RP #### [facility] [address] [place] [address] Dr. Leni Hamlin SPEC GRAVITY <=1.005 Abnormal 1.005-<=1.025 [facility] Comment on above: Performed By: #### C RP #### [facility] [address] [place] [address] Dr. Leni Hamlin UA PROTEIN >300 Abnormal NEGATIVE/ TRACE [facility] Comment on above: Performed By: #### C RP #### [facility] [address] [place] [address] Dr. Leni Hamlin UR MICRO IND INDICATED Normal [facility] Comment on above: Performed By: #### C RP #### [facility] [address] [place] [address] Dr. Leni Hamlin Urobilinogen Qn (U) 0.2 {Stacy'U}/dL Normal 0.2 - 1. 0 [facility] Comment on above: Performed By: #### C RP #### [facility] [address] [place] [address] Dr. Leni Hamlin LACTATE/LACTIC ACIDon 2021 Lactate [Moles/Vol] 0.5 mmol/L Normal 0.4-2.0 [facility] Comment on above: Performed By: #### B MP, BNP #### [facility] [address] [place] [address] Dr. Leni Hamlin Lactate [Moles/Vol] 1.6 mmol/L Normal 0.4-2.0 [facility] Comment on above: Performed By: #### L ACT #### [facility] [address] [place] [address] Dr. Leni Hamlin PROF 14(COMP METB)on 022 Albumin [Mass/Vol] 3.1 g/dL Critically low 3.4-5.0 [facility] Comment on above: Performed By: #### B MP, BNP #### [facility] [address] [place] [address] Dr. Leni Hamlin Albumin/Globulin [Mass ratio] 0.8 {ratio} Normal [facility] Comment on above: Performed By: #### B MP, BNP #### [facility] [address] [place] [address] Dr. Leni Hamlin ALP [Catalytic activity/Vol] 52 U/L Normal 46-116 [facility] Comment on above: Performed By: #### B MP, BNP #### [facility] [address] [place] [address] Dr. Leni Hamlin ALT [Catalytic activity/Vol] 27 U/L Normal 16-63 [facility] Comment on above: Performed By: #### B MP, BNP #### [facility] [address] [place] [address] Dr. Leni Hamlin Anion gap [Moles/Vol] 12.9 mmol/L Normal [facility] Comment on above: Performed By: #### B MP, BNP #### [facility] [address] [place] [address] Dr. Leni Hamlin AST [Catalytic activity/Vol] 14 U/L Critically low 15-37 [facility] Comment on above: Performed By: #### B MP, BNP #### [facility] [address] [place] [address] Dr. Leni Hamlin Bilirubin [Mass/Vol] 1.2 mg/dL Critically high 0.2-1.0 [facility] Comment on above: Performed By: #### B MP, BNP #### [facility] [address] [place] [address] Dr. Leni Hamlin Calcium [Mass/Vol] 8.2 mg/dL Critically low 8.5-10.1 [facility] Comment on above: Performed By: #### B MP, BNP #### [facility] [address] [place] [address] Dr. Leni Hamlin Chloride [Moles/Vol] 99 mmol/L Normal 98-107 [facility] Comment on above: Performed By: #### B MP, BNP #### [facility] [address] [place] [address] Dr. Leni Hamlin CO2 [Moles/Vol] 28.4 mmol/L Normal 21.0-32.0 [facility] Comment on above: Performed By: #### B MP, BNP #### [facility] [address] [place] [address] Dr. Leni Hamlin Creatinine [Mass/Vol] 1.44 mg/dL Critically high 0.70-1.30 [facility] Comment on above: Performed By: #### B MP, BNP #### [facility] [address] [place] [address] Dr. Leni Hamlin EGFR-AF [place]I 58 mL/min/1.73m2 Critically low >=60 [facility] Comment on above: Performed By: #### B MP, BNP #### [facility] [address] [place] [address] Dr. Leni Hamlin EGFR-NON AF [place] 48 mL/min/1.73m2 Critically low >=60 [facility] Comment on above: Performed By: #### B MP, BNP #### [facility] [address] [place] [address] Dr. Leni Hamlin Globulin (S) [Mass/Vol] 3.8 g/dL Normal [facility] Comment on above: Performed By: #### B MP, BNP #### [facility] [address] [place] [address] Dr. Leni Hamlin Glucose [Mass/Vol] 137 mg/dL Critically high 74-106 [facility] Comment on above: Performed By: #### B MP, BNP #### [facility] [address] [place] [address] Dr. Leni Hamlin Potassium [Moles/Vol] 4.3 mmol/L Normal 3.5-5.1 [facility] Comment on above: Performed By: #### B MP, BNP #### [facility] [address] [place] [address] Dr. Leni Hamlin Protein [Mass/Vol] 6.9 g/dL Normal 6.1-8.[address] [facility] Comment on above: Performed By: #### B MP, BNP #### [facility] [address] [place] [address] Dr. Leni Hamlin Sodium [Moles/Vol] 136 mmol/L Normal 136-[address] [facility] Comment on above: Performed By: #### B MP, BNP #### [facility] [address] [place] [address] Dr. Leni Hamlin Urea nitrogen [Mass/Vol] 15.0 mg/dL Normal 7.0-18.0 [facility] Comment on above: Performed By: #### B MP, BNP #### [facility] [address] [place] [address] Dr. Leni Hamlin Urea nitrogen/Creatinine [Mass ratio] 10.4 mg/mg Normal [facility] Comment on above: Performed By: #### B MP, BNP #### [facility] [address] [place] [address] Dr. Leni Hamlin PROTIMEon 03-12-2022 INR Coag (PPP) [Relative time] 1.07 {INR} Normal [facility] Comment on above: Performed By: #### B MP, BNP #### [facility] [address] [place] [address] Dr. Leni Hamlin INR GUIDELINES SEE BELOW Normal [facility] Comment on above: Result Comment: WAQAS RED INR: 2.0 - 3.0 CONDITIONS NOT LISTED BELOW 2.5 - 3.5 FOR PROSTHETIC HEART VALVE REPLACEMENT 2.5 - 3.5 RECURRENT THROMBOSIS Performed By: #### B MP, BNP #### [facility] [address] [place] [address] Dr. Leni Hamlin PT Coag (PPP) [Time] 11.5 s Normal 9.0-11.6 [facility] Comment on above: Performed By: #### B MP, BNP #### [facility] [address] [place] [address] Dr. Leni Hamlin TROPONIN, HIGH SENSITIVITYon 03-12-2022 HSTROP 12.8 pg/mL Normal 4.0-76.1 [facility] Comment on above: Result Comment: CUT- OFF POINTS HAVE BEEN ESTABLISHED BASED ON THE FOURTH UNIVERSAL DEFINITIONS OF MYOCARDIAL INFARCTION. THE UPPER REFERENCE LIMIT (URL) OF TROPONIN, DEFINED THE 99TH PERCENTILE OF cTnI DISTRIBUTION IN A REFERENCE POPULATION, HAS BEEN CONFIRMED THE DECISION THRESHOLD FOR [place] DIAGNOSIS. Performed By: #### B MP, BNP #### [facility] [address] [place] [address] Dr. Leni Hamlin URINE MICROSCOPIC ONLYon BACTERIA NONE SEEN Normal NONE SEEN [facility] Comment on above: Performed By: #### C RP #### [facility] [address] [place] [address] Dr. Leni Hamlin Bacteria identified Cx Nom (U) NOT INDICATED Normal [facility] Comment on above: Performed By: #### C RP #### [facility] [address] [place] [address] Dr. Leni Hamlin CAST NONE SEEN Normal NONE SEEN [facility] Comment on above: Performed By: #### C RP #### [facility] [address] [address] [address] Leni Hamlin Crystals LM Nom (Urine sed) NONE SEEN Normal NONE SEEN [facility] Comment on above: Performed By: #### C RP #### [facility] [address] [address] [address] Leni Hamlin Epithelial cells LM Ql (Urine sed) NONE SEEN Normal NONE SEEN /RARE [facility] Comment on above: Performed By: #### C RP #### [facility] [address] [place] [address] Dr. Leni Hamlin MUCOUS MODERATE Abnormal NONE SEEN [facility] Comment on above: Performed By: #### C RP #### [facility] [address] [place] [address] Dr. Leni Hamlin RBC 2-5 Abnormal 0-2 [facility] Comment on above: Performed By: #### C RP #### [facility] [address] [place] [address] Dr. Leni Hamlin WBC NONE SEEN Normal NONE SEEN [facility] Comment on above: Performed By: #### C RP #### [facility] [address] [place] [address] Dr. Leni Hamlin XR RIBS RT PA [...] CIERA HERNÁNDEZ Date: 2022-03-12 13:35 Normal [facility] Covid-19 PCR (CVDTB)on 01-09 SARS-CoV-2 (COVID-19) RNA VENESSA+probe Ql (Unsp spec) Not detected Normal NOT DETECTED [facility] Comment on above: Result Comment: This test is not yet approved or cleared by the [place] FDA. When there are no FDA-approved or cleared tests available, and other criteria are met, FDA can make tests available under an emergency access mechanism called an Emergency Use Authorization (EUA). The EUA for this test is supported by the It Program Manager of Health and Human Service's (HHS's) declaration [...] SARS-CoV-2. Performed By: #### C RP #### [facility] [address] [place] [address] Dr. Leni Hamlin INFLUENZA A AND B AGon 01-[facility] BELOW Normal [facility] Comment on above: Result Comment: Nega tive for Flu A protein angiten. Infection due to Flu A cannot be ruled out. Flu A angiten in the sample may be below the detection limit of the test. Performed By: #### C RP #### [facility] [address] [place] [address] Dr. Leni Hamlin INFLUBNEG SEE BELOW Normal [facility] Comment on above: Result Comment: Nega tive for Flu B protein antigen. Infection due to Flu B cannot be ruled out. Flu B antigen in the sample may be below the detection limit of the test. Performed By: #### C RP #### [facility] [address] [place] [address] Dr. Leni Hamlin INFLUENZA A AG Negative Normal NEGATIVE SEE COMMENT [facility] Comment on above: Performed By: #### C RP #### [facility] [address] [place] [address] Dr. Leni Hamlin INFLUENZA B AG Negative Normal NEGATIVE SEE COMMENT [facility] Comment on above: Performed By: #### C RP #### [facility] [address] [place], [place] [address] Dr. Leni Hamlin INTERNAL CONTROLS Within Normal Limits Normal Wi thin Normal Limits [facility] Comment on above: Performed By: #### C RP #### [facility] [address] [place], [place] [address] Dr. Leni Hamlin COVID-19 Antigenon 2 COVID-19 [...] its performance Cindy Disclaimer characteristic determined by [employer] and Cindy Disclaimer validated at [facility]. This Cindy Disclaimer test has [...] is terminated or revoked sooner. PERFORMED BY: [address] [id number] PATHOLOGIST DATA PROCESSING OPERATOR ZOHAIB JEWELL M.D. Normal [facility] Comment on above: Performed By: #### C OVID-19 CINDY, SOFIANEG #### [facility] [address] Cindy Ag Negativeon 12-01-19 22 Cindy Ag Negative Negative Normal Negative [facility] Comment on above: Result Comment: This is a duplicate Cindy SARS Antigen (JENNIFER) result to be used for statistical tracking purpose only. PERFORMED BY: [address] [id number] PATHOLOGIST DATA PROCESSING OPERATOR ZOHAIB JEWELL M.D. Performed By: #### C OVID-19 EDDIE WHITE #### [address] Encounters Encounter Date Encounter Type Care Provider Facility Start: 03-23-2024 End: 03-23-2024 ambulatory [facility] [place] Start: 03-02-2024 End: 03-03-2024 ambulatory Andalli Josephytgianna Stitis Facility:[facility] Start: 02-26-2024 End: 02-26-2024 ambulatory [facility] Start: 01-31-2024 End: 01-31-2024 ambulatory [facility] [place] Start: 01-27-2024 End: 01-28-2024 ambulatory Andalli Josephytautclaritza Stitis Facility: [facility] Start: 12-30-2023 End: 12-31-2023 ambulatory Andrius Josephytautas Macielitis Facility:[facility] Start: 09-16-2023 End: 09-17-2023 ambulatory Andalli Josephytautas Macielitis Facility:[facility] Start: 08-27-2023 End: 08-27-2023 ambulatory [facility] [place] Start: 07-09-2023 End: 07-09-2023 ambulatory [facility] Start: 06-24-2023 End: 06-25-2023 ambulatory Andrius Jakeytautas Macielitis Facility:[facility] Start: 06-10-2023 End: 06-11-2023 ambulatory Andrius Jakeytautas Macielitis Facility:[facility] Start: 05-27-2023 End: 05-28-2023 ambulatory Andalli Josephytautas Macielitis Facility:[facility] Start: 05-13-2023 End: 05-13-2023 ambulatory [facility] [place] Start: 05-08-2023 ambulatory [facility] Start: 04-09-2023 End: 04-09-2023 ambulatory [facility] Start: 03-29-2023 End: 03-30-2023 ambulatory [facility] Start: 03-26-2023 End: 03-27-2023 ambulatory [facility] Start: 03-26-2023 End: 03-26-2023 ambulatory [facility] Start: 01-16-2023 End: 01-16-[address] ELLIOT CHESTER . Facility:[facility] Start: 12-27-[address] ELLIOT CHESTER . Facili ty:[facility] Start: 12-18-2022 End: 12-18-[address] CLIFTON JHAVERI Facility:[facility] Start: 10-01-2022 End: 10-03-2022 Evaluation and management of inpatient DR ELLIOT CHESTER . Facility:[facility] Start: 09-10-2022 End: 09-10-[address] ELLIOT CHESTER . Facility:[facility] Start: 08-24-[address] ELLIOT CHESTER . Facili ty:[facility] Start: 05-22-2022 End: 05-22-2022 ambulatory GAGANDEEP PAREDES Facility:[facility] Start: 05-21-2022 End: 05-21-2022 ambulatory GAGANDEEP PAREDES Facility:[facility] Start: 04-23-2022 End: 04-23-[address] ELLIOT CHESTER . Facility:[facility] Start: 03-23-2022 End: 03-24-2022 ambulatory MODESTO BECERRA Facility:[facility] Start: 03-22-2022 End: 03-23-2022 ambulatory MODESTO BECERRA Facility:[facility] Start: 03-20-2022 End: 03-21-[address] ELLIOT CHESTER . Facility:[facility] Start: 03-13-2022 End: 03-15-2022 Evaluation and management of inpatient DR ELLIOT CHESTER . Facility:[facility] Start: 01-25-2022 End: 01-25-2022 ambulatory GAGANDEEP PAREDES Facility: Payers Date Payer Category Payer Medicare 2022 Unknown 1959 Medicare [id number] 1961 Self-pay 1959 Unknown [id number] 1948 Unknown [id number] 2.16.8 40.1.399994.3.579.2.647 1948 Unknown [id number] 2.16.84 0.1.508087.3.579.2.593 1948 Unknown [id number] 2.16.84 0.1.540001.3.579.2.593 1948 Unknown [id number] 2.16.84 0.1.233423.3.579.2.593 1948 Unknown [id number] 2.16.84 0.1.028286.3.579.2.593 1948 Unknown [id number] 2.16.84 0.1.304649.3.579.2.593 1948 Unknown [id number] 2.16.84 0.1.216753.3.579.2.593 1948 Unknown [id number] 2.16.84 0.1.556277.3.579.2.593 1948 Unknown [id number] 2.16.84 0.1.804848.3.579.2.593 1948 Unknown [id number] 2.16.84 0.1.473623.3.579.2.593 1948 Unknown [id number] 2.16.84 0.1.204038.3.579.2.593 1948 Unknown [id number] 2.16.84 0.1.060268.3.579.2.593 1948 Unknown [id number] 2.16.84 0.1.061637.3.579.2.593 1948 Unknown [id number] 2.16.84 0.1.478100.3.579.2.593 1948 Unknown [id number] 2.16. 840.1.834435.3.579.2.196 1948 Unknown [id number] 2.16. 840.1.151215.3.579.2.196 1948 Unknown [id number] 2.16. 840.1.010648.3.579.2.196 1948 Unknown [id number] 2.16. 840.1.282915.3.579.2.196 1948 Unknown [id number] 2.16. 840.1.400776.3.579.2.196 1948 Unknown [id number] 2.16. 840.1.647157.3.579.2.196 1948 Unknown [id number] 2.16. 840.1.029210.3.579.2. 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 Review of Systems Constitutional: Positive for malaise/fatigue. Cardiovascular: Positive for claudication. Musculoskeletal: Positive for arthritis, back pain, joint pain, muscle weakness and myalgias. All other systems reviewed and are negative. [facility] Progress note 08-27-2023 Note Date & Type Note Facility 08-27-2023 Note [facility] Reason for visit: follow up for [...] was initiated by the patient and conducted gnz-whoz-ae-face with use of audio-only real time telephone [...] since his prost (more content not included)... [facility] Progress note 08-27-2023 Note Date & Type [...] $70 for a 30 day supply at [facility]. Lipid profile was done in May 2023. [facility] Progress note 05-13-2023 Note Date & Type Note Facility 05-13-2023 Note Patient here c/o LE numbness and pain during ambulation and standing. He had EMG and SAGAR's in March 2023. He sees Dr. Chester this afternoon. Recently saw neurosurgery and vascular surgery at [facility]. Dr. Quinonez started him on low dose aspirin and atorvastatin last week, which he states he has not started yet. He denies chest pain, SOB, and syncope. Review of Systems Constitutional: Positive for malaise/fatigue. Cardiovascular: Positive for claudication and leg swelling. Musculoskeletal: Positive for arthritis, back pain, muscle weakness and myalgias. All other systems reviewed and are negative. [facility] Progress note 05-13-2023 Note Date & Type Note Facility 05-13-2023 Note [place] [facility] Reason for visit: lower extremity claudication [...] was initiated by the patient and conducted cyl-mkea-io-face with use of audio-only real time telephone [...] night many times (more content not included)... [facility] Progress note 05-08-2023 Note Date & Type [...] will see him in about 3 months. [facility] Progress note 05-08-2023 Note Date & Type [...] being on aspirin (more content not included)... 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 He undertook some type of decompressive surgery [...] Final Atrial Rate 03/22/2022 76 BPM Final TX Interval 03/22/2022 162 ms Final QRS DURATION 03/22/2022 144 ms Final QT Interval 03/22/2022 392 ms Final QTC CALCULATION(BAZETT) 03/22/2022 441 ms Final P [place] 03/22/2022 -14 degrees Final R-[place] 03/22/2022 -20 degrees Final T Wave [place] 03/22/2022 -6 degrees Final Diagnosis 03/22/2022 Final [...] No definite e (more content not included)... 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 He undertook some type of decompressive surgery [...] Value Ref Range (more content not included)... [facility] Clinical Note 03-23-2022 Note Date & Type [...] by: ALONSO MASON Date: 2022-03-23 12:58 [facility] Summary Purpose Family History No Family [...] section and content) DATE CREATED AUTHOR 01/29/2022 [facility] DATE CREATED AUTHOR AUTHOR'S ORGANIZ ATION 04/23/2022 [facility] DATE CREATED AUTHOR AUTHOR'S ORGANIZ ATION 01/18/2023 [facility] DATE CREATED AUTHOR AUTHOR'S ORGANIZ ATION 03/05/2024 [facility] DATE CREATED AUTHOR AUTHOR'S ORGANIZ ATION 03/24/[address] [facility] FOR RECORDS PERTAINING TO PATIENTS WHO [...] BE BASED ON THE PRIMARY CLINICAL RECORDS. [facility]. provides no warranty or guarantee of the accuracy or completeness of information in this document.
[2024-03-30 10:36] VITALS: BP 145/90; PULSE 63; TEMP 36.2; O2SAT 93
[2024-03-30 10:45] VITALS: BP 152/89; BP 157/81; PULSE 65; PULSE 67; O2SAT 96; O2SAT 97
[2024-03-30] MEDS: BUPIVACAINE HCL 0.25% PF 25 MG/10 ML VIAL INJ (10:45)
[2024-03-30] MEDS: TRIAMCINOLONE ACETONIDE 40 MG/ML VIAL INJ (10:46)
[2024-03-30] MEDS: LIDOCAINE HCL 2% 400 MG/20 ML MDV 15 ML INJ (10:52)
--- NOTE | 2024-03-30 10:59 | P.ON_ITS ---
Date of procedure: 03/30/24 Pre-op diagnosis: Lumbar spondylosis Post-op diagnosis: same as pre-op Procedure: Procedure: Bilateral L4-5, L5-S1 radiofrequency ablation Medications: Bupivacaine 0.25% 6cc, lidocaine 2% 5cc, kenalog 80mg The patient was seen and examined in the preoperative holding area.? The site was marked.? Written informed consent was obtained and placed on the chart.? The patient was brought to the medical procedure unit and placed in the prone position.? A timeout was completed verifying correct patient, procedure, positioning, and special requirements.? The skin overlying the target points, the designated medial branch, were prepped and draped in the usual sterile fashion.? The target point was achieved with a 20-gauge 15 cm with a 10 mm curved active tip radiofrequency cannula under direct fluoroscopic visualization.? The needle was inserted at level L4 on the right side. Needle tip position was confirmed with lateral fluoroscopic position.? Motor stimulation was carried out at 2 Hz up to 5 volts with the absence of extremity activity.? This was repeated at level L5, S1 on right side.?? Sensory stimulation was carried out.? Concordant pain was realized at the above- mentioned sites.? Then radiofrequency lesioning was carried out times 90 seconds at 80 degrees times 2 lesions at each level.? The radiofrequency probe was removed prior to cannula removal.? The above-mentioned injectate was placed in 1 mL increments.? The needle was removed. The same procedure, with the same steps, was then completed on the left side at the same levels. Insertion sites were covered.? The patient was taken to the postoperative recovery area and monitored for an appropriate length of time before being found suitable for discharge in the company of a responsible adult. Anesthesia: Local Surgeon: Urvashi Rawls Pathology: none sent Condition: stable Disposition: no change
== END 2024-03-30 11:06 | disposition home or self-care (01) ==
LOC: SURGOUT 09:44
PROVIDERS: PCP Family Medicine; Visit Provider Anesthesiology
DX: M47.816 Spondylosis without myelopathy or radiculopathy, lumbar region (principal)
CPT/HCPCS: 64635; 64636

== ENCOUNTER 2024-04-30 13:46 | Outpatient (OUT) | payer MEDICARE, OTHER, SELFPAY ==
--- NOTE | 2024-04-30 14:10 | PM.CN ---
Consult Note: HPI Data of Consult Patient: known to practice within the last 3 years Requesting Physician: Gisele Rodriguez NP Primary Care Provider: Jaron Chester MD Consult Narrative Reason for consult: f/u Narrative: Brian Oneal a pleasant 73 year old male presents for evaluation and management of low back pain. 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 Pain today 0/10 increasing to 4/10 with bending twisting and activity. Patient continues to have moderate to severe pain that is radiating in right low back and to right thigh stopping at his knee, increased with activity, standing, walking. Patient recently underwent bilateral l4-5 l5-s1 facet RFA with >90% improvement in pain and functional ability ongoing. cc:: CC: Gisele Rodriguez NP Review of Systems ROS Status of ROS 10 or more systems reviewed and unremarkable except as noted in history and below PFSH [facility] Medical History Low back pain ?M54.50 - Low back pain, unspecified (ICD-10) Glaucoma ?H40.9 - Unspecified glaucoma (ICD-10) H/O prostate cancer ?Z85.46 - Personal history of malignant neoplasm of prostate (ICD-10) Numbness and tingling ?R20.0 - Anesthesia of skin (ICD-10) ?R20.2 - Paresthesia of skin (ICD-10) Former smoker ?Z87.891 - Personal history of nicotine dependence (ICD-10) Irregular heart beat ?I49.9 - Cardiac arrhythmia, unspecified (ICD-10) Hypertension ?I10 - Essential (primary) hypertension (ICD-10) Surgical History Pacemaker ?Z95.0 - Presence of cardiac pacemaker (ICD-10) H/O lumbosacral spine surgery ?Z98.890 - Other specified postprocedural states (ICD-10) History of appendectomy ?Z90.49 - Acquired absence of other specified parts of digestive tract (ICD-10) Family History Mother Family history of cancer Family history of hypertension Sister Family history of cancer Family history of myocardial infarction Social History Within the past year, how often did you have a drink containing alcohol: never Within the past year, how often did you have six or more drinks on one occasion: never Score interpretation: A score less than 4 is consistent with normal alcohol consumption. Smoking status: Former smoker Non-prescribed substance use: denies use Previous occupational history: retired Highest level of school completed/degree received: high school graduate Are you now , , , , never or living with a partner: living with partner Little interest or pleasure in doing things: not at all Feeling down, depressed, or hopeless: not at all Feel stressed/tense/nervous/anxious/difficulty sleeping: only a little Meds Home Medications and Allergies Home Medications ?Medication ?Instructions ?Recorded ?Confirmed ?Type gabapentin 100 mg capsule 100 mg PO BID 05/27/23 03/30/24 History tizanidine 4 mg tablet 8 mg PO .HS 05/27/23 03/30/24 History gabapentin 300 mg capsule 300 mg PO .qhs 03/07/24 03/30/24 History apixaban 5 mg tablet (Eliquis) 5 mg PO BID #60 tabs 03/10/24 03/30/24 Rx metoprolol tartrate 50 mg tablet 50 mg PO BID #60 tabs 03/10/24 03/30/24 Rx aspirin 81 mg tablet,delayed mg 03/30/24 History release atorvastatin 40 mg tablet mg 03/30/24 History Allergies Allergy/AdvReac Type Severity Reaction Status Date / Time Z PACK Allergy Uncoded 03/30/24 10:37 Exam Constitutional Documenting provider has reviewed patient's vital signs: yes Common normals: no apparent distress, oriented x3, healthy appearing, alert and well nourished General appearance: cooperative [facility] Common normals: normocephalic, hearing grossly normal bilaterally and moist oral mucous membranes Head and scalp: normocephalic Eye Common normals: PERRL Pupil: PERRL Neck & C-Spine Common normals: full ROM General: normal visual inspection Chest Common normals: inspection of chest normal Respiratory Common normals: normal respiratory effort, no retractions and no use of accessory muscles Back & Pelvis Lumbar spine/lower back: pain with ROM (mild) and straight leg raise negative bilaterally Sacroiliac joints: SI joints normal Extremity Common normals: normal to inspection, full ROM, no calf tenderness and no pedal edema Neuro Common normals: oriented x3, CN's II-XII intact bilaterally, moves all extremities, no focal motor deficits, no sensory deficits noted and deep tendon reflexes 2+ bilaterally Sensorium/orientation: alert Motor exam: strength 5/5 throughout and no movement abnormalities noted Psych Common normals: mental status grossly normal, thought process normal, cooperative, affect normal, speech normal and activity/motor behavior normal Speech: normal speech Thought process: normal thought process Results Additional Findings Additional findings: If on a controlled substance or opioids, I have checked an [place] report on this patient and there are no aberrancies noted in the prescribing history.??If on a controlled substance or opioid a drug screen was completed and reviewed within the last year, and if there has not been a drug screen completed we ordered one today to monitor higher risk, state monitored pain medication use. As part of providing excellent, safe, comprehensive care, the following was completed at our patient's visit: 1. A medication reconciliation and review to ensure accurate knowledge of current/active medications, including asking our patients to inform us about any [id number] medications or herbal remedies/nutritional supplements/alternative remedies. 2. A review to specifically ensure our patients have had annual screening for screening for depression, screening for tobacco use, and screening for unhealthy alcohol use. For concerning screenings had a discussion with the patient, provided patient education, and recommended follow-up with primary care provider when appropriate. If patient noted with a risk of falling, they received education on strength, gait, and balance training to prevent future risk of falling. Assessment and Plan Assessment and Plan (1) Lumbar spondylosis: Assessment and Plan: The patient has had over 3 months of moderate to severe low back pain with functional impairment and inadequate response to conservative care including NSAIDS (unless there are contraindication such as concurrent blood thinners), multiple oral or topical pain medications, and home exercise program/physical therapy.? Patient has completed >6 weeks of guided home exercise program and/or formal physical therapy program without relief of their symptoms.? I have reviewed the imaging of the lumbar spine and no red flags were identified.? The imaging reveals radiographic findings consistent with lumbar spondylosis We discussed the risks and benefits of the procedure with the patient, and we are NOT planning on using sedation as outlined in the guidelines from Medicare unless there is a documented reason that sedation would be strongly recommended.?? ?The procedure will be completed with fluoroscopic guidance.? (2) Lumbar stenosis with neurogenic claudication: Plan bilateral L4-5 L5-S1 facet medial branch RFA >90% improvement ongoing consider vertiflex/spinal cord stimulator in the future however patient very active and I do not think he could avoid bending twisting of lifting for recovery periods of either procedure with his current work has sopped gabapentin and tizanidine without increase in pain f/u 6 months, sooner if needed
--- OUTSIDE RECORDS SUMMARY | 2024-04-30 14:10 | XMS_ITS | CCD ---
Author Organization [facility] Care Team Providers Care Cycling Instructor Name Role Phone MODESTO BECERRA Admitting Unavailable MODESTO BECERRA Attending Unavailable SELF, REFERRED Referring Unavailable ELLIOT CHESTER Primary Care Unavailable MODESTO BECERRA Consulting Unavailable HOMaximino ., DR ZARATE Primary Care Unavailable MODESTO [...] Unavailable HOY ., DR ZARATE Admitting Unavailable REINECK, DR CLIFTON Kang Consulting Unavailabl e REINECK, DR CLIFTON Kang Attending Unavailabl e REINECK, DR CLIFTON Kang Admitting Unavailabl e HOY ., DR ZARATE Primary Care Unavailable JIHANEBPIEDAD, DR CIERA Eric Consulting Unavailable GREGG .MARYAM Consulting Unavailabl e HOY ., DR [...] Unavailable HOY ., DR ZARATE Admitting Unavailable GAGANDEEP PAREDES Consulting Unavailable HOY ., [...] HOY ., DR ZARATE Admitting Unavailable Giedraitis MD, Andrius Vytautclaritza Attending Unavailable Giedraitis MD, Andrius Vytautclaritza Attending Unavailable Giedraitis MD, Andrius Vytautclaritza Attending Unavailable Giedraitis MD, Andrius Vytautas Attending Unavailable Giedraitis MD, Andrius Vytautas Attending Unavailable Giedraitis MD, Andrius Vytautas Attending Unavailable Giedraitis MD, Andrius Vytautas Attending Unavailable Giedraitis MD, Andrius Vytautas Attending Unavailable ALGHODIONNA, MIGUELAMAD Attending Unavailable ALGRAI, MOHAMAD Attending Unavailable MODESTO BECERRA Referring Unavailable ALGHODIONNA, MOHAMAD Attending Unavailable ELODIA LITTLE Attending Unavailable ALGHOTHANI, MIGUELAMAD Attending Unavailable JOSE QUINONEZ Attending Unavailable RADU RENEE Referring Unavailable MODESTO BECERRA Referring Unavailable Allergies Allergy Classification Reported Allergen(s) Allergy Type Date of Onset Reaction(s) Facility (2 sources) Azithromycin; Translations: [AZITHROMYCIN] Drug Allergy 03-22-2022 [facility] Repository (2 sources) Azithromycin Drug Allergy 03-03-[address] [facility] Repository (1 source) Ciprofloxacin Drug Allergy 12-18-[address] [facility] Repository Problems Active Problems Problem Classification Problem Date Documented Da te Episodic/Chronic Calculus of urinary tract (1 source) Personal history of urinary calculi; Translations: [PERSONAL HISTORY OF URINARY CALCULI] Onset: 12-20-2022 Episodic Cancer of prostate (1 source) Malignant neoplasm of prostate; Translations: [MALIGNANT NEOPLASM OF PROSTATE] Onset: 12-20-2022 Chronic Cardiac dysrhythmias (2 sources) Paroxysmal atrial fibrillation; Translations: [Paroxysmal atrial fibrillation] Onset: 04-24-2024 Chronic Coagulation and hemorrhagic disorders (1 source) Thrombocytopenia, unspecified; Translations: [THROMBOCYTOPENIA UNSPECIFIED] Onset: 10-15-2022 Chronic Conduction disorders (8 sources) Encounter for adjustment and management of automatic implantable cardiac defibrillator; Translations: [Presence of cardiac pacemaker] Onset: 03-23-2022 Chronic Disorders of lipid metabolism (2 sources) Hyperlipidemia, unspecified; Translations: [Hyperlipidemia, unspecified] Onset: 08-27-2023 Chronic Essential hypertension (3 sources) Essential (primary) hypertension; Translations: [ESSENTIAL PRIMARY HYPERTENSION] Onset: 12-20-2022 Chronic Nonspecific chest pain (2 sources) Other chest pain; Translations: [Other chest pain] Onset: 11-07-2022 Episodic Nutritional deficiencies (1 source) Mild protein-calorie malnutrition; Translations: [MILD PROTEIN-CALORIE MALNUTRITION] Onset: 03-19-2022 Chronic Osteoarthritis (1 source) Unspecified osteoarthritis, unspecified site; Translations: [UNSPECIFIED OSTEOARTHRITIS UNS SITE] Onset: 03-19-2022 Chronic Other lower respiratory disease (1 source) Personal history of pneumonia (recurrent); Translations: [PERSONAL HX OF PNEUMONIA RECURRENT] Onset: 12-20-2022 Episodic Other nutritional; endocrine; and metabolic disorders (1 [...] unspecified; Translations: [Peripheral vascular disease, unspecified] Onset: 04-24-2024 Chronic Residual codes; unclassified (5 sources) Obstructive [...] Translations: [LOW BACK PAIN, UNSPECIFIED] Onset: 12-20-2022 Viral infection (4 sources) COVID-19; Translations: [COVID-19] [...] 10-01-2022 Episodic Other aftercare (1 source) Other prison (current) drug therapy; 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] Onset: 03-19-2022 Episodic Pneumonia [...] [OTHER LOW BACK PAIN] Onset: 12-27-2022 Unclassified (1 source) LOW BACK PAIN, UNSPECIFIED; Translations: [LOW BACK PAIN, UNSPECIFIED] Onset: 12-18-2022 Unclassified (1 source) COUGH, UNSPECIFIED; Translations: [COUGH, UNSPECIFIED] Onset: 05-21-2022 Results Test Name Value Interpretation Reference Range Facility Office Visiton 04-24-2024 Follow-up visit [id number] Wayne Oneal A 1950 M Date Provider Department Center 04/24/2024 367-ELODIA LITTLE RAMAKRISHNA Lucero Family History Problem Relation Age of Onset Coronary artery disease Mother Family Status - Relation Status Age at Mother Level of Service:70810 SC OFFICE/OUTPATIENT ESTABLISHED HIGH MDM 40 MIN Normal [facility] Office Visiton 01-31-2024 Follow-up visit [id number] Wayne Oneal A 1950 M Date Provider Department Center 01/31/2024 MAJOR ALMEIDA RAMAKRISHNA Lucero Family History Problem Relation Age of Onset Coronary artery disease Mother Family Status - Relation Status Age at Mother Level of Service:44923 SC OFFICE/OUTPATIENT ESTABLISHED LOW MDM 20 MIN Normal [facility] Office Visiton 08-27-2023 Follow-up visit [id number] Wayne Oneal A 1950 M Date Provider Department Center 08/27/2023 MAJOR ALMEIDA Family History Problem Relation Age of Onset Coronary artery disease Mother Family Status - Relation Status Age at Mother Level of Service:43631 SC OFFICE/OUTPATIENT ESTABLISHED LOW MDM 20-29 MIN Normal [facility] Office Visiton 05-13-2023 Follow-up visit [id number] Wayne Oneal A 1950 M Date Provider Department Center 05/13/2023 MAJOR ALMEIDA Family History Problem Relation Age of Onset Coronary artery disease Mother Family Status - Relation Status Age at Mother Level of Service:39881 SC OFFICE/OUTPATIENT ESTABLISHED MOD MDM 30-39 MIN Normal [facility] Orders Onlyon 05-13-2023 Orders Only [id number] Wayne Oneal A 1950 Date Provider Department Center 05/13/2023 BRAYAN AGUDELO [facility] Family History Problem Relation Age of Onset Coronary artery disease Mother Family Status - Relation Status Age at Mother Normal [facility] 29on 05-08-2023 27 Addended by: LEANA HENNING on: 05/09/2023 01:46 PM Modules accepted: Orders Normal [facility] Consulton 05-08-2023 Consult [id number] Wayne Oneal A 1950 Date Provider Department Center 05/08/2023 JOSE COX HVCVASENDJordi [facility] Family History Problem Relation Age of Onset Coronary artery disease Mother Family Status - Relation Status Age at Mother Level of Service:41466 SC OFFICE/OUTPATIENT NEW MODERATE MDM 45-59 MINUTES Reason for Visit and Comments: New Patient [632] - Numbness in bilateral legs Normal [facility] Covid-19 PCR (CVDTB)on SARS-CoV-2 (COVID-19) RNA VENESSA+probe Ql (Unsp spec) Not detected Normal NOT DETECTED [facility] Comment on above: Result Comment: When diagnostic [...] for this test is supported by the [place] of Health and Human Service's declaration that [...] #### B MP, BNP #### [facility] Laboratory [address] [place] [address] Dr. Leni Hamlin INFLUENZA A AND B [facility] 01-16 [facility] SEE BELOW Normal [facility] Comment on above: Result Comment: Nega tive for Flu A protein angiten. Infection due to Flu A cannot be ruled out. Flu A angiten in the sample may be below the detection limit of the test. Performed By: #### C RP #### [facility] [address] [place] [address] Dr. Leni Hamlin INFLUBANNER SEE BELOW Normal [facility] Comment on above: Result Comment: Nega tive for Flu B protein antigen. Infection due to Flu B cannot be ruled out. Flu B antigen in the sample may be below the detection limit of the test. Performed By: #### C RP #### [facility] [address] [place] [address] Dr. Leni Hamlin INFLUENZA A AG Negative Normal NEGATIVE SEE COMMENT [facility] Comment on above: Performed By: #### C RP #### [facility] [address] [place] [address] Dr. Leni Hamlin INFLUENZA B AG Negative Normal NEGATIVE SEE COMMENT [facility] Comment on above: Performed By: #### C RP #### [facility] [address] [place] [address] LSPINE WO CONon 3 CT LSPINE WO CON EXAMINATION: CT LSBOWLING GREEN WO CON, 12/18/2022 3:26 PM EST HISTORY: [...] Date: 2022-12-18 15:56 Normal [facility] CBC AUTO DIFFon 10-03-2022 BASO # 0.1 103/ul Normal 0.0-0.[address] [facility] Comment on above: Performed By: #### B MP, BNP #### [facility] [address] [address] [address] Leni Hamlin Basophils/100 WBC (Bld) 0.5 % Normal 0.2-2.[address] [facility] Comment on above: Performed By: #### B MP, BNP #### [facility] [address] [place] [address] Dr. Leni Hamlin EO # 0.3 103/ul Normal 0.0-0.7 [facility] Comment on above: Performed By: #### B MP, BNP #### [facility] [address] [place] [address] Dr. Leni Hamlin Eosinophils/100 WBC (Bld) 2.2 % Normal 0.9-7.0 [facility] Comment on above: Performed By: #### B MP, BNP #### [facility] [address] [place] [address] Dr. Leni Hamlin Erythrocyte distribution width (RBC) [Ratio] 13.3 % Normal 11.0-15.0 [facility] Comment on above: Performed By: #### B MP, BNP #### [facility] [address] [place] [address] Dr. Leni Hamlin Hematocrit (Bld) [Volume fraction] 46.9 % Normal 42.0-54.0 [facility] Comment on above: Performed By: #### B MP, BNP #### [facility] [address] [place] [address] Dr. Leni Hamlin Hemoglobin (Bld) [Mass/Vol] 15.3 g/dL Normal 14.0-18.0 [facility] Comment on above: Performed By: #### B MP, BNP #### [facility] [address] [place] [address] Dr. Leni Hamlin IG # 0.18 10e3/ul Critically high 0.00-0.03 [facility] Comment on above: Performed By: #### B MP, BNP #### [facility] [address] [place] [address] Dr. Leni Hamlin IG % 1.3 % Critically high 0.0-0.5 [facility] Comment on above: Performed By: #### B MP, BNP #### [facility] [address] [place] [address] Dr. Leni Hamlin LYMPH # 1.9 103/ul Normal 1.2-3.[address] [facility] Comment on above: Performed By: #### B MP, BNP #### [facility] [address] [place] [address] Dr. Leni Hamlin Lymphocytes/100 WBC (Bld) 13.6 % Critically low 20.5-60.0 [facility] Comment on above: Performed By: #### B MP, BNP #### [facility] [address] [place] [address] Dr. Leni Hamlin MANUAL DIFF REQ NO Normal [facility] Comment on above: Performed By: #### B MP, BNP #### [facility] [address] [place] [address] Dr. Leni Hamlin MCH (RBC) [Entitic mass] 29.2 pg Normal 25.9-34.0 [facility] Comment on above: Performed By: #### B MP, BNP #### [facility] [address] [place] [address] Dr. Leni Hamlin MCHC (RBC) [Mass/Vol] 32.6 g/dL Normal 29.9-35.2 [facility] Comment on above: Performed By: #### B MP, BNP #### [facility] [address] [place] [address] Dr. Leni Hamlin MCV (RBC) [Entitic vol] 89.5 fL Normal 80.0-94.0 [facility] Comment on above: Performed By: #### B MP, BNP #### [facility] [address] [place] [address] Dr. eLni Hamlin MONO # 0.9 103/ul Critically high 0.3-0.[address] [facility] Comment on above: Performed By: #### B MP, BNP #### [facility] [address] [place] [address] Dr. Leni Hamlin Monocytes/100 WBC (Bld) 6.6 % Normal 1.7-12.0 [facility] Comment on above: Performed By: #### B MP, BNP #### [facility] [address] [place] [address] Dr. Leni Hamlin NEUT # 10.4 103/ul Critically high 1.4-6.5 [facility] Comment on above: Performed By: #### B MP, BNP #### [facility] [address] [address] [address] Leni Hamlin Neutrophils/100 WBC (Bld) 75.8 % Critically high 43.0-75.0 [facility] Comment on above: Performed By: #### B MP, BNP #### [facility] [address] [address] [address] Leni Hamlin Platelet mean volume (Bld) [Entitic vol] 10.6 fL Normal 9.5-13.5 [facility] Comment on above: Performed By: #### B MP, BNP #### [facility] [address] [place] [address] Dr. Leni Hamlin PLT 143 103/ul Critically low 150-450 [facility] Comment on above: Performed By: #### B MP, BNP #### [facility] [address] [place] [address] Dr. Leni Hamlin RBC 5.24 106/ul Normal 4.70-6.10 [facility] Comment on above: Performed By: #### B MP, BNP #### [facility] [address] [place] [address] Dr. Leni Hamlin WBC 13.7 103/ul Critically high 4.0-11.0 [facility] Comment on above: Performed By: #### B MP, BNP #### [facility] [address] [place] [address] Dr. Leni Hamlin CRPon 10-03-2022 CRP 7.6 mg/dL Critically high <=1.0 [facility] Comment on above: Performed By: #### C MP, CRP #### [facility] [address] [place] [address] Dr. Leni Hamlin PROF 14(COMP METB)on 022 Albumin [Mass/Vol] 2.5 g/dL Critically low 3.4-5.0 [facility] Comment on above: Performed By: #### C MP, CRP #### [facility] [address] [address] [address] Leni Hamlin Albumin/Globulin [Mass ratio] 0.7 {ratio} Normal [facility] Comment on above: Performed By: #### C MP, CRP #### [facility] [address] [address] [address] Leni Hamlin ALP [Catalytic activity/Vol] 54 U/L Normal 46-116 [facility] Comment on above: Performed By: #### C MP, CRP #### [facility] [address] [address] [address] Leni Hamlin ALT [Catalytic activity/Vol] 11 U/L Critically low 16-63 [facility] Comment on above: Performed By: #### C MP, CRP #### [facility] [address] [address] [address] Leni Hamlin Anion gap [Moles/Vol] 8.8 mmol/L Normal [facility] Comment on above: Performed By: #### C MP, CRP #### [facility] [address] [address] [address] Leni Hamlin AST [Catalytic activity/Vol] 9 U/L Critically low 15-37 [facility] Comment on above: Performed By: #### C MP, CRP #### [facility] [address] [address] [address] Leni Hamlin Bilirubin [Mass/Vol] 0.3 mg/dL Normal 0.2-1.0 [facility] Comment on above: Performed By: #### C MP, CRP #### [facility] [address] [address] [address] Leni Hamlin Calcium [Mass/Vol] 8.6 mg/dL Normal 8.5-10.1 [facility] Comment on above: Performed By: #### C MP, CRP #### [facility] [address] [address] [address] Leni Hamlin Chloride [Moles/Vol] 103 mmol/L Normal 98-107 [facility] Comment on above: Performed By: #### C MP, CRP #### [facility] [address] [address] [address] Leni Hamlin CO2 [Moles/Vol] 29.2 mmol/L Normal 21.0-32.0 [facility] Comment on above: Performed By: #### C MP, CRP #### [facility] [address] [address] [address] Leni Hamlin Creatinine [Mass/Vol] 1.20 mg/dL Normal 0.70-1.30 [facility] Comment on above: Performed By: #### C MP, CRP #### [facility] [address] [address] [address] Leni Hamlin EGFR-AF CITIZEN [place] >60 Normal >=60 [facility] Comment on above: Performed By: #### C MP, CRP #### [facility] [address] [address] [address] Leni Hamlin EGFR-NON AF CITIZEN OF [place] 59 mL/min/1.73m2 Critically low >=60 [facility] Comment on above: Performed By: #### C MP, CRP #### [facility] [address] [address] [address] Leni Hamlin Globulin (S) [Mass/Vol] 3.4 g/dL Normal [facility] Comment on above: Performed By: #### C MP, CRP #### [facility] [address] [address] [address] Leni Hamlin Glucose [Mass/Vol] 108 mg/dL Critically high 74-106 [facility] Comment on above: Performed By: #### C MP, CRP #### [facility] [address] [address] [address] Leni Hamlin Potassium [Moles/Vol] 4.0 mmol/L Normal 3.5-5.1 [facility] Comment on above: Performed By: #### C MP, CRP #### [facility] [address] [address] [address] Leni Hamlin Protein [Mass/Vol] 5.9 g/dL Critically low 6.4-8.2 [facility] Comment on above: Performed By: #### C MP, CRP #### [facility] [address] [place] [address] Dr. Leni Hamlin Sodium [Moles/Vol] 137 mmol/L Normal 136-145 [facility] Comment on above: Performed By: #### C MP, CRP #### [facility] [address] [place] [address] Dr. Leni Hamlin Urea nitrogen [Mass/Vol] 15.0 mg/dL Normal 7.0-18.0 [facility] Comment on above: Performed By: #### C MP, CRP #### [facility] [address] [place] [address] Dr. Leni Hamlin Urea nitrogen/Creatinine [Mass ratio] 12.5 mg/mg Normal [facility] Comment on above: Performed By: #### C MP, CRP #### [facility] [address] [place] [address] Dr. Leni Hamlin CBC AUTO DIFFon 10-02-2022 BASO # 0.1 103/ul Normal 0.0-0.1 [facility] Comment on above: Performed By: #### C MP, CRP #### [facility] [address] [place] [address] Dr. Leni Hamlin Basophils/100 WBC (Bld) 0.5 % Normal 0.2-2.0 [facility] Comment on above: Performed By: #### C MP, CRP #### [facility] [address] [place] [address] Dr. Leni Hamlin EO # 0.2 103/ul Normal 0.0-0.7 [facility] Comment on above: Performed By: #### C MP, CRP #### [facility] [address] [place] [address] Dr. Leni Hamlin Eosinophils/100 WBC (Bld) 1.6 % Normal 0.9-7.0 [facility] Comment on above: Performed By: #### C MP, CRP #### [facility] [address] [place] [address] Dr. Leni Hamlin Erythrocyte distribution width (RBC) [Ratio] 13.4 % Normal 11.0-15.0 [facility] Comment on above: Performed By: #### C MP, CRP #### [facility] [address] [place] [address] Dr. Leni Hamlin Hematocrit (Bld) [Volume fraction] 46.6 % Normal 42.0-54.0 [facility] Comment on above: Performed By: #### C MP, CRP #### [facility] [address] [place] [address] Dr. Leni Hamlin Hemoglobin (Bld) [Mass/Vol] 15.1 g/dL Normal 14.0-18.0 [facility] Comment on above: Performed By: #### C MP, CRP #### [facility] [address] [place] [address] Dr. Leni Hamlin IG # 0.21 10e3/ul Critically high 0.00-0.03 [facility] Comment on above: Performed By: #### C MP, CRP #### [facility] [address] [place] [address] Dr. Leni Hamlin IG % 1.4 % Critically high 0.0-0.5 [facility] Comment on above: Performed By: #### C MP, CRP #### [facility] [address] [place] [address] Dr. Leni Hamlin LYMPH # 1.9 103/ul Normal 1.2-3.8 [facility] Comment on above: Performed By: #### C MP, CRP #### [facility] [address] [place] [address] Dr. Leni Hamlin Lymphocytes/100 WBC (Bld) 12.4 % Critically low 20.5-60.0 [facility] Comment on above: Performed By: #### C MP, CRP #### [facility] [address] [place] [address] Dr. Leni Hamlin MANUAL DIFF REQ NO Normal [facility] Comment on above: Performed By: #### C MP, CRP #### [facility] [address] [place] [address] Dr. Leni Hamlin MCH (RBC) [Entitic mass] 28.9 pg Normal 25.9-34.0 [facility] Comment on above: Performed By: #### C MP, CRP #### [facility] [address] [place] [address] Dr. Leni Hamlin MCHC (RBC) [Mass/Vol] 32.4 g/dL Normal 29.9-35.[address] [facility] Comment on above: Performed By: #### C MP, CRP #### [facility] [address] [place] [address] Dr. Leni Hamlin MCV (RBC) [Entitic vol] 89.3 fL Normal 80.0-94.[address] [facility] Comment on above: Performed By: #### C MP, CRP #### [facility] [address] [place] [address] Dr. Leni Hamlin MONO # 1.1 103/ul Critically high 0.3-0.[address] [facility] Comment on above: Performed By: #### C MP, CRP #### [facility] [address] [place] [address] Dr. Leni Hamlin Monocytes/100 WBC (Bld) 6.9 % Normal 1.7-12.[address] [facility] Comment on above: Performed By: #### C MP, CRP #### [facility] [address] [place] [address] Dr. Leni Hamlin NEUT # 11.8 103/ul Critically high 1.4-6.5 [facility] Comment on above: Performed By: #### C MP, CRP #### [facility] [address] [place] [address] Dr. Leni Hamlin Neutrophils/100 WBC (Bld) 77.2 % Critically high 43.0-75.[address] [facility] Comment on above: Performed By: #### C MP, CRP #### [facility] [address] [place] [address] Dr. Leni Hamlin Platelet mean volume (Bld) [Entitic vol] 10.5 fL Normal 9.5-13.[address] [facility] Comment on above: Performed By: #### C MP, CRP #### [facility] [address] [place] [address] Dr. Leni Hamlin PLT 138 103/ul Critically low 150-450 [facility] Comment on above: Performed By: #### C MP, CRP #### [facility] [facility] [address] [place] [address] Dr. Leni Hamlin RBC 5.22 106/ul Normal 4.70-6.10 [facility] Comment on above: Performed By: #### C MP, CRP #### [facility] [address] [place] [address] Dr. Leni Hamlin WBC 15.3 103/ul Critically high 4.0-11.0 [facility] Comment on above: Performed By: #### C MP, CRP #### [facility] [address] [place] [address] Dr. Leni Hamlin CRPon 10-02-2022 CRP 13.7 mg/dL Critically high <=1.0 [facility] Comment on above: Performed By: #### C VDAGS #### [facility] [address] [place] [address] Dr. Leni Hamlin PROF 14(COMP METB)on 022 Albumin [Mass/Vol] 2.5 g/dL Critically low 3.4-5.0 [facility] Comment on above: Performed By: #### C VDAGS #### [facility] [address] [place] [address] Dr. Leni Hamlin Albumin/Globulin [Mass ratio] 0.8 {ratio} Normal [facility] Comment on above: Performed By: #### C VDAGS #### [facility] [address] [place] [address] Dr. Leni Hamlin ALP [Catalytic activity/Vol] 54 U/L Normal 46-[address] [facility] Comment on above: Performed By: #### C VDAGS #### [facility] [address] [place] [address] Dr. Leni Hamlin ALT [Catalytic activity/Vol] 13 U/L Critically low 16-63 [facility] Comment on above: Performed By: #### C VDAGS #### [facility] [address] [place] [address] Dr. Leni Hamlin Anion gap [Moles/Vol] 10.6 mmol/L Normal [facility] Comment on above: Performed By: #### C VDAGS #### [facility] [address] [address] [address] Leni Hamlin AST [Catalytic activity/Vol] 9 U/L Critically low 15-37 [facility] Comment on above: Performed By: #### C VDAGS #### [facility] [address] [address] [address] Leni Hamlin Bilirubin [Mass/Vol] 0.3 mg/dL Normal 0.2-1.0 [facility] Comment on above: Performed By: #### C VDAGS #### [facility] [address] [place] [address] Dr. Leni Hamlin Calcium [Mass/Vol] 8.5 mg/dL Normal 8.5-10.1 [facility] Comment on above: Performed By: #### C VDAGS #### [facility] [address] [place] [address] Dr. Leni Hamlin Chloride [Moles/Vol] 104 mmol/L Normal 98-[address] [facility] Comment on above: Performed By: #### C VDAGS #### [facility] [address] [place] [address] Dr. Leni Hamlin CO2 [Moles/Vol] 27.5 mmol/L Normal 21.0-32.0 [facility] Comment on above: Performed By: #### C VDAGS #### [facility] [address] [place] [address] Dr. Leni Hamlin Creatinine [Mass/Vol] 1.26 mg/dL Normal 0.70-1.[address] [facility] Comment on above: Performed By: #### C VDAGS #### [facility] [address] [place] [address] Dr. Leni Hamlin EGFR-AF [place]IZ[place] >60 Normal >=60 [facility] Comment on above: Performed By: #### C VDAGS #### [facility] [address] [place] [address] Dr. Leni Hamlin EGFR-NON AF CITIZEN OF [place] 56 mL/min/1.73m2 Critically low >=60 [facility] Comment on above: Performed By: #### C VDAGS #### [facility] [address] [address] [address] Leni Hamlin Globulin (S) [Mass/Vol] 3.3 g/dL Normal [facility] Comment on above: Performed By: #### C VDAGS #### [facility] [address] [address] [address] Leni Hamlin Glucose [Mass/Vol] 122 mg/dL Critically high 74-106 [facility] Comment on above: Performed By: #### C VDAGS #### [facility] [address] [place] [address] Dr. Leni Hamlin Potassium [Moles/Vol] 4.1 mmol/L Normal 3.5-5.1 [facility] Comment on above: Performed By: #### C VDAGS #### [facility] [address] [place] [address] Dr. Leni Hamlin Protein [Mass/Vol] 5.8 g/dL Critically low 6.4-8.2 [facility] Comment on above: Performed By: #### C VDAGS #### [facility] [address] [place] [address] Dr. Leni Hamlin Sodium [Moles/Vol] 138 mmol/L Normal 136-145 [facility] Comment on above: Performed By: #### C VDAGS #### [facility] [address] [place] [address] Dr. Leni Hamlin Urea nitrogen [Mass/Vol] 20.0 mg/dL Critically high 7.0-18.0 [facility] Comment on above: Performed By: #### C VDAGS #### [facility] [address] [place] [address] Dr. Leni Hamlin Urea nitrogen/Creatinine [Mass ratio] 15.9 mg/mg Normal [facility] Comment on above: Performed By: #### C VDAGS #### [facility] [address] [place] [address] Dr. Leni Hamlin CBC AUTO DIFFon 10-01-2022 BASO # 0.1 103/ul Normal 0.0-0.1 [facility] Comment on above: Performed By: #### C MP, CRP #### [facility] [address] [place] [address] Dr. Leni Hamlin Basophils/100 WBC (Bld) 0.3 % Normal 0.2-2.0 [facility] Comment on above: Performed By: #### C MP, CRP #### [facility] [address] [place] [address] Dr. Leni Hamlin EO # 0.2 103/ul Normal 0.0-0.7 [facility] Comment on above: Performed By: #### C MP, CRP #### [facility] [address] [place] [address] Dr. Leni Hamlin Eosinophils/100 WBC (Bld) 0.8 % Critically low 0.9-7.0 [facility] Comment on above: Performed By: #### C MP, CRP #### [facility] [address] [place] [address] Dr. Leni Hamlin Erythrocyte distribution width (RBC) [Ratio] 13.6 % Normal 11.0-15.0 [facility] Comment on above: Performed By: #### C MP, CRP #### [facility] [address] [place] [address] Dr. Leni Hamlin Hematocrit (Bld) [Volume fraction] 49.0 % Normal 42.0-54.0 [facility] Comment on above: Performed By: #### C MP, CRP #### [facility] [address] [place] [address] Dr. Leni Hamlin Hemoglobin (Bld) [Mass/Vol] 16.0 g/dL Normal 14.0-18.0 [facility] Comment on above: Performed By: #### C MP, CRP #### [facility] [address] [place] [address] Dr. Leni Hamlin IG # 0.24 10e3/ul Critically high 0.00-0.03 [facility] Comment on above: Performed By: #### C MP, CRP #### [facility] [address] [address] [address] Leni Hamlin IG % 1.2 % Critically high 0.0-0.5 [facility] Comment on above: Performed By: #### C MP, CRP #### [facility] [address] [address] [address] Leni Hamlin LYMPH # 1.6 103/ul Normal 1.2-3.8 [facility] Comment on above: Performed By: #### C MP, CRP #### [facility] [address] [address] [address] Leni Hamlin Lymphocytes/100 WBC (Bld) 8.0 % Critically low 20.5-60.0 [facility] Comment on above: Performed By: #### C MP, CRP #### [facility] [address] [address] [address] Leni Hamlin MANUAL DIFF REQ NO Normal [facility] Comment on above: Performed By: #### C MP, CRP #### [facility] [address] [address] [address] Leni Hamlin MCH (RBC) [Entitic mass] 29.4 pg Normal 25.9-34.0 [facility] Comment on above: Performed By: #### C MP, CRP #### [facility] [address] [address] [address] Leni Hamlin MCHC (RBC) [Mass/Vol] 32.7 g/dL Normal 29.9-35.2 [facility] Comment on above: Performed By: #### C MP, CRP #### [facility] [address] [address] [address] Leni Hamlin MCV (RBC) [Entitic vol] 90.1 fL Normal 80.0-94.0 [facility] Comment on above: Performed By: #### C MP, CRP #### [facility] [address] [address] [address] Leni Hamlin MONO # 1.0 103/ul Critically high 0.3-0.[address] [facility] Comment on above: Performed By: #### C MP, CRP #### [facility] [address] [address] [address] Leni Hamlin Monocytes/100 WBC (Bld) 5.1 % Normal 1.7-12.[address] [facility] Comment on above: Performed By: #### C MP, CRP #### [facility] [address] [address] [address] Leni Hamlin NEUT # 16.8 103/ul Critically high 1.4-6.5 [facility] Comment on above: Performed By: #### C MP, CRP #### [facility] [address] [place] [address] Dr. Leni Hamlin Neutrophils/100 WBC (Bld) 84.6 % Critically high 43.0-75.0 [facility] Comment on above: Performed By: #### C MP, CRP #### [facility] [address] [place] [address] Dr. Leni Hamlin Platelet mean volume (Bld) [Entitic vol] 9.7 fL Normal 9.5-13.[address] [facility] Comment on above: Performed By: #### C MP, CRP #### [facility] [address] [place] [address] Dr. Leni Hamlin PLT 138 103/ul Critically low 150-450 [facility] Comment on above: Performed By: #### C MP, CRP #### [facility] [address] [place] [address] Dr. Leni Hamlin RBC 5.44 106/ul Normal 4.70-6.[address] [facility] Comment on above: Performed By: #### C MP, CRP #### [facility] [address] [place] [address] Dr. Leni Hamlin WBC 19.8 103/ul Critically high 4.0-11.0 [facility] Comment on above: Performed By: #### C MP, CRP #### [facility] [address] [place] [address] Dr. Leni Hamlin BASO # 0.1 103/ul Normal 0.0-0.1 [facility] Comment on above: Performed By: #### B MP, BNP #### [facility] [address] [place] [address] Dr. Leni Hamlin Basophils/100 WBC (Bld) 0.3 % Normal 0.2-2.0 [facility] Comment on above: Performed By: #### B MP, BNP #### [facility] [address] [place] [address] Dr. Leni Hamlin EO # 0.1 103/ul Normal 0.0-0.7 [facility] Comment on above: Performed By: #### B MP, BNP #### [facility] [address] [place] [address] Dr. Leni Hamlin Eosinophils/100 WBC (Bld) 0.7 % Critically low 0.9-7.0 [facility] Comment on above: Performed By: #### B MP, BNP #### [facility] [address] [place] [address] Dr. Leni Hamlin Erythrocyte distribution width (RBC) [Ratio] 13.6 % Normal 11.0-15.0 [facility] Comment on above: Performed By: #### B MP, BNP #### [facility] [address] [place] [address] Dr. Leni Hamlin Hematocrit (Bld) [Volume fraction] 46.9 % Normal 42.0-54.0 [facility] Comment on above: Performed By: #### B MP, BNP #### [facility] [address] [place] [address] Dr. Leni Hamlin Hemoglobin (Bld) [Mass/Vol] 15.5 g/dL Normal 14.0-18.0 [facility] Comment on above: Performed By: #### B MP, BNP #### [facility] [address] [place] [address] Dr. Leni Hamlin IG # 0.16 10e3/ul Critically high 0.00-0.03 [facility] Comment on above: Performed By: #### B MP, BNP #### [facility] [address] [place] [address] Dr. Leni Hamlin IG % 0.9 % Critically high 0.0-0.[address] [facility] Comment on above: Performed By: #### B MP, BNP #### [facility] [address] [place] [address] Dr. Leni Hamlin LYMPH # 1.8 103/ul Normal 1.2-3.[address] [facility] Comment on above: Performed By: #### B MP, BNP #### [facility] [address] [place] [address] Dr. Leni Hamlin Lymphocytes/100 WBC (Bld) 9.7 % Critically low 20.5-60.0 [facility] Comment on above: Performed By: #### B MP, BNP #### [facility] [address] [place] [address] Dr. Leni Hamlin MANUAL DIFF REQ NO Normal [facility] Comment on above: Performed By: #### B MP, BNP #### [facility] [address] [place] [address] Dr. Leni Hamlin MCH (RBC) [Entitic mass] 29.2 pg Normal 25.9-34.0 [facility] Comment on above: Performed By: #### B MP, BNP #### [facility] [address] [place] [address] Dr. Leni Hamlin MCHC (RBC) [Mass/Vol] 33.0 g/dL Normal 29.9-35.2 [facility] Comment on above: Performed By: #### B MP, BNP #### [facility] [address] [place] [address] Dr. Leni Hamlin MCV (RBC) [Entitic vol] 88.3 fL Normal 80.0-94.[address] [facility] Comment on above: Performed By: #### B MP, BNP #### [facility] [address] [place] [address] Dr. Leni Hamlin MONO # 1.4 103/ul Critically high 0.3-0.8 [facility] Comment on above: Performed By: #### B MP, BNP #### [facility] [address] [place] [address] Dr. Leni Hamlin Monocytes/100 WBC (Bld) 7.3 % Normal 1.7-12.[address] [facility] Comment on above: Performed By: #### B MP, BNP #### [facility] [address] [place] [address] Dr. Leni Hamlin NEUT # 15.1 103/ul Critically high 1.4-6.5 [facility] Comment on above: Performed By: #### B MP, BNP #### [facility] [address] [place] [address] Dr. Leni Hamlin Neutrophils/100 WBC (Bld) 81.1 % Critically high 43.0-75.[address] [facility] Comment on above: Performed By: #### B MP, BNP #### [facility] [address] [place] [address] Dr. Leni Hamlin Platelet mean volume (Bld) [Entitic vol] 10.0 fL Normal 9.5-13.[address] [facility] Comment on above: Performed By: #### B MP, BNP #### [facility] [address] [place] [address] Dr. Leni Hamlin PLT 141 103/ul Critically low 150-450 [facility] Comment on above: Performed By: #### B MP, BNP #### [facility] [address] [place] [address] Dr. Leni Hamlin RBC 5.31 106/ul Normal 4.70-6.[address] [facility] Comment on above: Performed By: #### B MP, BNP #### [facility] [address] [place] [address] Dr. Leni Hamlin WBC 18.7 103/ul Critically high 4.0-11.0 [facility] Comment on above: Performed By: #### B MP, BNP #### [facility] [address] [place] [address] Dr. Leni Hamlin CRPon 10-01-2022 CRP 16.0 mg/dL Critically high <=1.[address] [facility] Comment on above: Performed By: #### C VDAGS #### [facility] [address] [address] [address] Leni Hamlin PROF 14(COMP METB)on 022 Albumin [Mass/Vol] 2.6 g/dL Critically low 3.4-5.0 [facility] Comment on above: Performed By: #### C MP, CRP #### [facility] [address] [place] [address] Dr. Leni Hamlin Albumin/Globulin [Mass ratio] 0.8 {ratio} Normal [facility] Comment on above: Performed By: #### C MP, CRP #### [facility] [address] [place] [address] Dr. Leni Hamlin ALP [Catalytic activity/Vol] 44 U/L Critically low 46-116 [facility] Comment on above: Performed By: #### C MP, CRP #### [facility] [address] [place] [address] Dr. Leni Hamlin ALT [Catalytic activity/Vol] 12 U/L Critically low 16-63 [facility] Comment on above: Performed By: #### C MP, CRP #### [facility] [address] [place] [address] Dr. Leni Hamlin Anion gap [Moles/Vol] 8.7 mmol/L Normal [facility] Comment on above: Performed By: #### C MP, CRP #### [facility] [address] [place] [address] Dr. Leni Hamlin AST [Catalytic activity/Vol] 10 U/L Critically low 15-37 [facility] Comment on above: Performed By: #### C MP, CRP #### [facility] [address] [place] [address] Dr. Leni Hamlin Bilirubin [Mass/Vol] 0.8 mg/dL Normal 0.2-1.0 [facility] Comment on above: Performed By: #### C MP, CRP #### [facility] [address] [place] [address] Dr. Leni Hamlin Calcium [Mass/Vol] 8.3 mg/dL Critically low 8.5-10.1 [facility] Comment on above: Performed By: #### C MP, CRP #### [facility] [address] [address] [address] Leni Hamlin Chloride [Moles/Vol] 103 mmol/L Normal 98-107 [facility] Comment on above: Performed By: #### C MP, CRP #### [facility] [address] [address] [address] Leni Hamlin CO2 [Moles/Vol] 28.2 mmol/L Normal 21.0-32.0 [facility] Comment on above: Performed By: #### C MP, CRP #### [facility] [address] [address] [address] Leni Hamlin Creatinine [Mass/Vol] 1.24 mg/dL Normal 0.70-1.30 [facility] Comment on above: Performed By: #### C MP, CRP #### [facility] [address] [place] [address] Dr. Leni Hamlin EGFR-AF [place] >60 Normal >=60 [facility] Comment on above: Performed By: #### C MP, CRP #### [facility] [address] [address] [address] Leni Hamlin EGFR-NON AF [place]IZ[place] OF [place] 57 mL/min/1.73m2 Critically low >=60 [facility] Comment on above: Performed By: #### C MP, CRP #### [facility] [address] [place] [address] Dr. Leni Hamlin Globulin (S) [Mass/Vol] 3.2 g/dL Normal [facility] Comment on above: Performed By: #### C MP, CRP #### [facility] [address] [address] [address] Leni Hamlin Glucose [Mass/Vol] 111 mg/dL Critically high 74-106 [facility] Comment on above: Performed By: #### C MP, CRP #### [facility] [address] [address] [address] Leni Hamlin Potassium [Moles/Vol] 3.9 mmol/L Normal 3.5-5.[address] [facility] Comment on above: Performed By: #### C MP, CRP #### [facility] [address] [place] [address] Dr. Leni Hamlin Protein [Mass/Vol] 5.8 g/dL Critically low 6.4-8.[address] [facility] Comment on above: Performed By: #### C MP, CRP #### [facility] [address] [place] [address] Dr. Leni Hamlin Sodium [Moles/Vol] 136 mmol/L Normal 136-145 [facility] Comment on above: Performed By: #### C MP, CRP #### [facility] [address] [place] [address] Dr. Leni Hamlin Urea nitrogen [Mass/Vol] 17.0 mg/dL Normal 7.0-18.0 [facility] Comment on above: Performed By: #### C MP, CRP #### [facility] [address] [place] [address] Dr. Leni Hamlin Urea nitrogen/Creatinine [Mass ratio] 13.7 mg/mg Normal [facility] Comment on above: Performed By: #### C MP, CRP #### [facility] [address] [place] [address] Dr. Leni Duvall. DIFF PCRon 09-30-2022 C. DIFFICILE PCR Positive Critically abnormal NEGATIVE [facility] Comment on above: Performed By: #### C VDAGS #### [facility] [address] [place] [address] Dr. Leni Hmalin CBC AUTO DIFFon 09-30-2022 BASO # 0.0 103/ul Normal 0.0-0.1 [facility] Comment on above: Performed By: #### C BC #### [facility] [address] [place] [address] Dr. Leni Hamlin Basophils/100 WBC (Bld) 0.3 % Normal 0.2-2.0 [facility] Comment on above: Performed By: #### C BC #### [facility] [address] [place] [address] Dr. Leni Hamlin EO # 0.1 103/ul Normal 0.0-0.7 [facility] Comment on above: Performed By: #### C BC #### [facility] [address] [address] [address] Leni Hamlin Eosinophils/100 WBC (Bld) 0.8 % Critically low 0.9-7.0 [facility] Comment on above: Performed By: #### C BC #### [facility] [address] [place] [address] Dr. Leni Hamlin Erythrocyte distribution width (RBC) [Ratio] 13.4 % Normal 11.0-15.0 [facility] Comment on above: Performed By: #### C BC #### [facility] [address] [place] [address] Dr. Leni Hamlin Hematocrit (Bld) [Volume fraction] 50.4 % Normal 42.0-54.0 [facility] Comment on above: Performed By: #### C BC #### [facility] [address] [place] [address] Dr. Leni Hamlin Hemoglobin (Bld) [Mass/Vol] 16.2 g/dL Normal 14.0-18.0 [facility] Comment on above: Performed By: #### C BC #### [facility] [address] [place] [address] Dr. Leni Hamlin IG # 0.13 10e3/ul Critically high 0.00-0.03 [facility] Comment on above: Performed By: #### C BC #### [facility] [address] [place] [address] Dr. Leni Hamlin IG % 0.9 % Critically high 0.0-0.5 [facility] Comment on above: Performed By: #### C BC #### [facility] [address] [place] [address] Dr. Leni Hamlin LYMPH # 1.7 103/ul Normal 1.2-3.[address] [facility] Comment on above: Performed By: #### C BC #### [facility] [address] [place] [address] Dr. Leni Hamlin Lymphocytes/100 WBC (Bld) 11.1 % Critically low 20.5-60.0 [facility] Comment on above: Performed By: #### C BC #### [facility] [address] [place] [address] Dr. Leni Hamlin MANUAL DIFF REQ NO Normal [facility] [facility] Comment on above: Performed By: #### C BC #### [facility] [address] [place] [address] Dr. Leni Hamlin MCH (RBC) [Entitic mass] 28.8 pg Normal 25.9-34.0 [facility] Comment on above: Performed By: #### C BC #### [facility] [address] [place] [address] Dr. Leni Hamlin MCHC (RBC) [Mass/Vol] 32.1 g/dL Normal 29.9-35.[address] [facility] Comment on above: Performed By: #### C BC #### [facility] [address] [place] [address] Dr. Leni Hamlin MCV (RBC) [Entitic vol] 89.7 fL Normal 80.0-94.0 [facility] Comment on above: Performed By: #### C BC #### [facility] [address] [place] [address] Dr. Leni Hamlin MONO # 1.5 103/ul Critically high 0.3-0.[address] [facility] Comment on above: Performed By: #### C BC #### [facility] [address] [place] [address] Dr. Leni Hamlin Monocytes/100 WBC (Bld) 9.8 % Normal 1.7-12.[address] [facility] Comment on above: Performed By: #### C BC #### [facility] [address] [place] [address] Dr. Leni Hamlin NEUT # 11.7 103/ul Critically high 1.4-6.5 [facility] Comment on above: Performed By: #### C BC #### [facility] [address] [place] [address] Dr. Leni Hamlin Neutrophils/100 WBC (Bld) 77.1 % Critically high 43.0-75.0 [facility] Comment on above: Performed By: #### C BC #### [facility] [address] [address] [address] Leni Hamlin Platelet mean volume (Bld) [Entitic vol] 9.9 fL Normal 9.5-13.5 [facility] Comment on above: Performed By: #### C BC #### [facility] [address] [place] [address] Dr. Leni Hamlin PLT 156 103/ul Normal 150-450 [facility] Comment on above: Performed By: #### C BC #### [facility] [address] [address] [address] Leni Hamlin RBC 5.62 106/ul Normal 4.70-6.10 [facility] Comment on above: Performed By: #### C BC #### [facility] [address] [place] [address] Dr. Leni Hamlin WBC 15.2 103/ul Critically high 4.0-11.0 [facility] Comment on above: Performed By: #### C BC #### [facility] [address] [place] [address] Dr. Leni Hamlin CRPon 09-30-2022 CRP 7.6 mg/dL Critically high <=1.0 [facility] Comment on above: Performed By: #### C RP #### [facility] [address] [place] [address] Dr. Leni Hamlin PROF 14(COMP METB)on 022 Albumin [Mass/Vol] 2.8 g/dL Critically low 3.4-5.0 [facility] Comment on above: Performed By: #### C RP #### [facility] [address] [place] [address] Dr. Leni Hamlin Albumin/Globulin [Mass ratio] 0.9 {ratio} Normal [facility] Comment on above: Performed By: #### C RP #### [facility] [address] [place] [address] Dr. Leni Hamlin ALP [Catalytic activity/Vol] 45 U/L Critically low 46-116 [facility] Comment on above: Performed By: #### C RP #### [facility] [address] [address] [address] Leni Hamlin ALT [Catalytic activity/Vol] 17 U/L Normal 16-63 [facility] Comment on above: Performed By: #### C RP #### [facility] [address] [address] [address] Leni Hamlin Anion gap [Moles/Vol] 8.4 mmol/L Normal [facility] Comment on above: Performed By: #### C RP #### [facility] [address] [address] [address] Leni Hamlin AST [Catalytic activity/Vol] 9 U/L Critically low 15-37 [facility] Comment on above: Performed By: #### C RP #### [facility] [address] [place] [address] Dr. Leni Hamlin Bilirubin [Mass/Vol] 0.6 mg/dL Normal 0.2-1.0 [facility] Comment on above: Performed By: #### C RP #### [facility] [address] [place] [address] Dr. Leni Hamlin Calcium [Mass/Vol] 8.6 mg/dL Normal 8.5-10.1 [facility] Comment on above: Performed By: #### C RP #### [facility] [address] [place] [address] Dr. Leni Hamlin Chloride [Moles/Vol] 104 mmol/L Normal 98-[address] [facility] Comment on above: Performed By: #### C RP #### [facility] [address] [address] [address] Leni Hamlin CO2 [Moles/Vol] 29.6 mmol/L Normal 21.0-32.0 [facility] Comment on above: Performed By: #### C RP #### [facility] [address] [place] [address] Dr. Leni Hamlin Creatinine [Mass/Vol] 1.23 mg/dL Normal 0.70-1.30 [facility] Comment on above: Performed By: #### C RP #### [facility] [address] [address] [address] Leni Hamlin EGFR-AF [place] >60 Normal >=60 [facility] Comment on above: Performed By: #### C RP #### [facility] [address] [address] [address] Leni Hamlin EGFR-NON AF [place]IZEN [place] 58 mL/min/1.73m2 Critically low >=60 [facility] Comment on above: Performed By: #### C RP #### [facility] [address] [address] [address] Leni Hamlin Globulin (S) [Mass/Vol] 3.0 g/dL Normal [facility] Comment on above: Performed By: #### C RP #### [facility] [address] [address] [address] Leni Hamlin Glucose [Mass/Vol] 113 mg/dL Critically high 74-106 [facility] Comment on above: Performed By: #### C RP #### [facility] [address] [address] [address] Leni Hamlin Potassium [Moles/Vol] 4.0 mmol/L Normal 3.5-5.1 [facility] Comment on above: Performed By: #### C RP #### [facility] [address] [place] [address] Dr. Leni Hamlin Protein [Mass/Vol] 5.8 g/dL Critically low 6.4-8.2 [facility] Comment on above: Performed By: #### C RP #### [facility] [address] [address] [address] Leni Hamlin Sodium [Moles/Vol] 138 mmol/L Normal 136-145 [facility] Comment on above: Performed By: #### C RP #### [facility] [address] [address] [address] Leni Hamlin Urea nitrogen [Mass/Vol] 17.0 mg/dL Normal 7.0-18.0 [facility] Comment on above: Performed By: #### C RP #### [facility] [address] [address] [address] Leni Hamlin Urea nitrogen/Creatinine [Mass ratio] 13.8 mg/mg Normal [facility] Comment on above: Performed By: #### C RP #### [facility] [address] [place] [address] Dr. Leni Hamlin CBC AUTO DIFFon 09-29-2022 BASO # 0.1 103/ul Normal 0.0-0.1 [facility] Comment on above: Performed By: #### C VDAGS #### [facility] [address] [place] [address] Dr. Leni Hamlin Basophils/100 WBC (Bld) 0.4 % Normal 0.2-2.[address] [facility] Comment on above: Performed By: #### C VDAGS #### [facility] [address] [place] [address] Dr. Leni Hamlin EO # 0.1 103/ul Normal 0.0-0.7 [facility] Comment on above: Performed By: #### C VDAGS #### [facility] [address] [place] [address] Dr. Leni Hamlin Eosinophils/100 WBC (Bld) 0.9 % Normal 0.9-7.[address] [facility] Comment on above: Performed By: #### C VDAGS #### [facility] [address] [place] [address] Dr. Leni Hamlin Erythrocyte distribution width (RBC) [Ratio] 13.2 % Normal 11.0-15.0 [facility] Comment on above: Performed By: #### C VDAGS #### [facility] [address] [place] [address] Dr. Leni Hamlin Hematocrit (Bld) [Volume fraction] 53.1 % Normal 42.0-54.[address] [facility] Comment on above: Performed By: #### C VDAGS #### [facility] [address] [place] [address] Dr. Leni Hamlin Hemoglobin (Bld) [Mass/Vol] 17.3 g/dL Normal 14.0-18.[address] [facility] Comment on above: Performed By: #### C VDAGS #### [facility] [address] [address] [address] Leni Hamlin IG # 0.30 10e3/ul Critically high 0.00-0.03 [facility] Comment on above: Performed By: #### C VDAGS #### [facility] [address] [address] [address] Leni Hamlin IG % 2.2 % Critically high 0.0-0.5 [facility] Comment on above: Performed By: #### C VDAGS #### [facility] [address] [address] [address] Leni Hamlin LYMPH # 1.5 103/ul Normal 1.2-3.8 [facility] Comment on above: Performed By: #### C VDAGS #### [facility] [address] [place] [address] Dr. Leni Hamlin Lymphocytes/100 WBC (Bld) 10.5 % Critically low 20.5-60.0 [facility] Comment on above: Performed By: #### C VDAGS #### [facility] [address] [place] [address] Dr. Leni Hamlin MANUAL DIFF REQ NO Normal [facility] Comment on above: Performed By: #### C VDAGS #### [facility] [address] [place] [address] Dr. Leni Hamlin MCH (RBC) [Entitic mass] 29.0 pg Normal 25.9-34.0 [facility] Comment on above: Performed By: #### C VDAGS #### [facility] [address] [place] [address] Dr. Leni Hamlin MCHC (RBC) [Mass/Vol] 32.6 g/dL Normal 29.9-35.2 [facility] Comment on above: Performed By: #### C VDAGS #### [facility] [address] [place] [address] Dr. Leni Hamlin MCV (RBC) [Entitic vol] 88.9 fL Normal 80.0-94.0 [facility] Comment on above: Performed By: #### C VDAGS #### [facility] [address] [place] [address] Dr. Leni Hamlin MONO # 0.8 103/ul Normal 0.3-0.[address] [facility] Comment on above: Performed By: #### C VDAGS #### [facility] [address] [place] [address] Dr. Leni Hamlin Monocytes/100 WBC (Bld) 6.0 % Normal 1.7-12.[address] [facility] Comment on above: Performed By: #### C VDAGS #### [facility] [address] [place] [address] Dr. Leni Hamlin NEUT # 11.2 103/ul Critically high 1.4-6.5 [facility] Comment on above: Performed By: #### C VDAGS #### [facility] [address] [place] [address] Dr. Leni Hamlin Neutrophils/100 WBC (Bld) 80.0 % Critically high 43.0-75.0 [facility] Comment on above: Performed By: #### C VDAGS #### [facility] [address] [place] [address] Dr. Leni Hamlin Platelet mean volume (Bld) [Entitic vol] 9.6 fL Normal 9.5-13.[address] [facility] Comment on above: Performed By: #### C VDAGS #### [facility] [address] [place] [address] Dr. Leni Hamlin PLT 186 103/ul Normal 150-[address] [facility] Comment on above: Performed By: #### C VDAGS #### [facility] [address] [place] [address] Dr. Leni Hamlin RBC 5.97 106/ul Normal 4.70-6.[address] [facility] Comment on above: Performed By: #### C VDAGS #### [facility] [address] [place] [address] Dr. Leni Hamlin WBC 13.9 103/ul Critically high 4.0-11.0 [facility] Comment on above: Performed By: #### C VDAGS #### [facility] [address] [address] [address] ABD/PELV W CONon [...] Date: 2022-09-29 12:51 Normal [address] [facility] Covid-19 PCR ([facility]on 09-11 SARS-CoV-2 (COVID-19) RNA VENESSA+probe Ql (Unsp spec) Not detected Normal NOT DETECTED [facility] Comment on above: Result Comment: When diagnostic [...] for this test is supported by the Insurance Verification Clerk of Health and Human Service's declaration that [...] #### B MP, BNP #### [facility] [address] [place] [address] Dr. Leni Hamlin GI PANEL (PCR)on 09-29-2022 Adenovirus F 40/41 Not detected Normal NOT DETECTED [facility] Comment on above: Performed By: #### C RP #### [facility] [address] [place] [address] Dr. Leni Hamlin Astrovirus Not detected Normal NOT DETECTED [facility] Comment on above: Performed By: #### C RP #### [facility] [address] [place] [address] Dr. Leni Duvall. Diff toxin A/B Not detected Normal NOT DETECTED [facility] Comment on above: Performed By: #### C RP #### [facility] [address] [place] [address] Dr. Leni Hamlin Campylobacter Not detected Normal NOT DETECTED [facility] Comment on above: Performed By: #### C RP #### [facility] [address] [place] [address] Dr. Leni Hamlin Cryptosporidium Not detected Normal NOT DETECTED The [facility] Comment on above: Performed By: #### C RP #### [facility] [address] [place] [address] Dr. Leni Hamlin Cyclos. Cayetanensis Not detected Normal NOT DETECTED [facility] Comment on above: Performed By: #### C RP #### [facility] [address] [place] [address] Dr. Leni Hamlin E. Coli O157 Not Applicable Normal Not Applicable [facility] Comment on above: Performed By: #### C RP #### [facility] [address] [place] [address] Dr. Leni Hamlin E. histolytica Not detected Normal NOT DETECTED The [facility] Comment on above: Performed By: #### C RP #### [facility] [address] [place] [address] Dr. Leni Hamlin EAEC Not detected Normal NOT DETECTED [facility] Comment on above: Performed By: #### C RP #### [facility] [address] [place] [address] Dr. Leni Hamlin EIEC Not detected Normal NOT DETECTED [facility] Comment on above: Performed By: #### C RP #### [facility] [address] [place] [address] Dr. Leni Hamlin EPEC Not detected Normal NOT DETECTED [facility] Comment on above: Performed By: #### C RP #### [facility] [address] [place] [address] Dr. Leni Hamlin ETEC Not detected Normal NOT DETECTED [facility] Comment on above: Performed By: #### C RP #### [facility] [address] [place] [address] Dr. Leni Kleinlijoão Not detected Normal NOT DETECTED [facility] Comment on above: Performed By: #### C RP #### [facility] [address] [place] [address] Dr. Leni TEJEDA CONTROLS PASSED Normal [facility] Comment on above: Performed By: #### C RP #### [facility] [address] [place] [address] Dr. Leni KRISHNAMURTHY HEADER GI PANEL BACTERIA Normal [facility] Comment on above: Performed By: #### C RP #### [facility] [address] [place] [address] Dr. Leni KAMARA ECOLI GI PANEL DIARRHEAGENIC E.COLI / SHIGELLA Normal [facility] Comment on above: Performed By: #### C RP #### [facility] [address] [place] [address] Dr. Leni KAMARA INFO SEE BELOW [facility] Comment on above: Result Comment: EAEC - Enteroaggregative E. Coli EPEC- Enteropathogenic E. Coli ETEC- Enterotoxigenic E. Coli lt/st STEC- Shigella-like toxin-producing E. Coli stx1/stx2 EIEC- Shigella/Enteroinvasive E. Coli Performed By: #### C RP #### [facility] [address] [place] [address] Dr. Leni KAMARA PARASITES GI PANEL PARASITES Normal [facility] Comment on above: Performed By: #### C RP #### [facility] [address] [place] [address] Dr. Leni KAMARA VIRUS GI PANEL VIRUSES Normal The [facility] Comment on above: Performed By: #### C RP #### [facility] [address] [place] [address] Dr. Leni Hamlin Norovirus GI/GII Not detected Normal NOT DETECTED [facility] Comment on above: Performed By: #### C RP #### [facility] [address] [place] [address] Dr. Leni Hamlin P. Shigelloides Not detected Normal NOT DETECTED The [facility] Comment on above: Performed By: #### C RP #### [facility] [address] [place] [address] Dr. Leni Hamlin Rotavirus A Not detected Normal NOT DETECTED [facility] Comment on above: Performed By: #### C RP #### [facility] [address] [place] [address] Dr. Leni Hamlin Salmonella Not detected Normal NOT DETECTED [facility] Comment on above: Performed By: #### C RP #### [facility] [address] [place] [address] Dr. Leni Hamlin Sapovirus Not detected Normal NOT DETECTED [facility] Comment on above: Performed By: #### C RP #### [facility] [address] [place] [address] Dr. Leni Hamlin STEC Not detected Normal NOT DETECTED [facility] Comment on above: Performed By: #### C RP #### [facility] [address] [place] [address] Dr. Leni Hamlin Vibrio Not detected Normal NOT DETECTED [facility] Comment on above: Performed By: #### C RP #### [facility] [address] [place] [address] Dr. Leni Hamlin Vibrio Cholera Not detected Normal NOT DETECTED The [facility] Comment on above: Performed By: #### C RP #### [facility] [address] [address] [address] Leni Hamlin Y. Enterocolitica Not detected Normal NOT DETECTED [facility] Comment on above: Performed By: #### C RP #### [facility] [address] [address] [address] Leni Hamlin PROF CHEM 8 (BAS METB)on Anion gap [Moles/Vol] 5.8 mmol/L Normal [facility] Comment on above: Performed By: #### C VDAGS #### [facility] [address] [place] [address] Dr. Leni Hamlin Calcium [Mass/Vol] 9.0 mg/dL Normal 8.5-10.1 [facility] Comment on above: Performed By: #### C VDAGS #### [facility] [address] [place] [address] Dr. Leni Hamlin Chloride [Moles/Vol] 103 mmol/L Normal 98-107 [facility] Comment on above: Performed By: #### C VDAGS #### [facility] [address] [place] [address] Dr. Leni Hamlin CO2 [Moles/Vol] 31.7 mmol/L Normal 21.0-32.0 [facility] Comment on above: Performed By: #### C VDAGS #### [facility] [address] [place] [address] Dr. Leni Hamlin Creatinine [Mass/Vol] 1.28 mg/dL Normal 0.70-1.30 [facility] Comment on above: Performed By: #### C VDAGS #### [facility] [address] [place] [address] Dr. Leni Hamlin EGFR-AF [place]IZ[place] >60 Normal >=60 [facility] Comment on above: Performed By: #### C VDAGS #### [facility] [address] [place] [address] Dr. Leni Hamlin EGFR-NON AF CITIZEN OF [place] 55 mL/min/1.73m2 Critically low >=60 [facility] Comment on above: Performed By: #### C VDAGS #### [facility] [address] [address] [address] Leni Hamlin Glucose [Mass/Vol] 130 mg/dL Critically high 74-106 [facility] Comment on above: Performed By: #### C VDAGS #### [facility] [address] [address] [address] Leni Hamlin Potassium [Moles/Vol] 4.5 mmol/L Normal 3.5-5.1 [facility] Comment on above: Performed By: #### C VDAGS #### [facility] [address] [address] [address] Leni Hamlin Sodium [Moles/Vol] 136 mmol/L Normal 136-145 [facility] Comment on above: Performed By: #### C VDAGS #### [facility] [address] [place] [address] Dr. Leni Hamlin Urea nitrogen [Mass/Vol] 23.0 mg/dL Critically high 7.0-18.0 [facility] Comment on above: Performed By: #### C VDAGS #### [facility] [address] [address] [address] Leni Hamlin Urea nitrogen/Creatinine [Mass ratio] 18.0 mg/mg Normal [facility] Comment on above: Performed By: #### C VDAGS #### [facility] [address] [place] [address] Dr. Leni Hamlin Covid-19 PCR ([facility])on 08-13 SARS-CoV-2 (COVID-19) RNA VENESSA+probe Ql (Unsp spec) Not detected Normal NOT DETECTED [facility] Comment on above: Result Comment: When diagnostic [...] for this test is supported by the Insurance Verification Clerk of Health and Human Service's declaration that [...] #### C MP, CRP #### [facility] [address] [address] [address] Leni Hamlin Covid-19 PCR ([facility])on 05-11 SARS-CoV-2 (COVID-19) RNA VENESSA+probe Ql (Unsp spec) Detected Critically abnormal NOT DETECTED [facility] Comment on above: Result Comment: This test is not yet approved or cleared by the [place] FDA. When there are no FDA-approved or cleared tests available, and other criteria are met, FDA can make tests available under an emergency access mechanism called an Emergency Use Authorization (EUA). The EUA for this test is supported by the Insurance Verification Clerk of Health and Human Service's (HHS's) declaration [...] By: #### C RP #### [facility] [address] [address] [address] Leni Hamlin Covid-19 PCR (CVDTBH)on 04-11 SARS-CoV-2 (COVID-19) RNA VENESSA+probe Ql (Unsp spec) Not detected Normal NOT DETECTED [facility] Comment on above: Result Comment: This test is not yet approved or cleared by the [place] FDA. When there are no FDA-approved or cleared tests available, and other criteria are met, FDA can make tests available under an emergency access mechanism called an Emergency Use Authorization (EUA). The EUA for this test is supported by the Insurance Verification Clerk of Health and Human Service's (HHS's) declaration [...] By: #### C VDTB #### [facility] [address] [address] [address] Leni Hamlin SYMPTOMATIC COVID-19 ANTIGEN on 04-23-2022 EUA Statement SEE BELOW Normal The [facility] Comment on above: Result Comment: [...] By: #### C VDAGS #### [facility] [address], [place] [address] Dr. Leni Hamlin SARS-CoV-2 (COVID-19) RNA VENESSA+probe Ql (Unsp spec) Negative Normal NEGATIVE [facility] Comment on above: Performed By: #### C VDAGS #### [facility] [address], [place] [address] Dr. Leni Hamlin Cardiovascular Lab Reporton 03-22-2022 Cardi[facility] MR #: [id number] Department of Physician: Modesto Becerra MD Medicine Service Date: 03/22/2022 Division of Birthdate: 1950 Cardiology Room #: Adult Cardiovascular Services [address] [place] [id number] Cardiovascular Laboratory Report PACEMAKER IMPLANT PROCEDURE NOTE [...] using modified seldinger technique using a 5 [place] micro-puncture needle on two occasions and 0.35 [...] pocket was created for the device. 6 [place] Safesheaths were placed over the wire. An active fixation Biotronik pacing lead was then delivered through the 6Fsheath to the right ventricle. After confirmation of lead position on orthogonal views (RUBALCAVA and NAMIBIAN) to confirm septal position, the screw was [...] lead position on orthogonal views (RUBALCAVA and NAMIBIAN), the screw was activated. After confirmation of [...] Device info: Biotronik Edora Model# 8DR-T Serial# [id number] RA lead: Model# Biotronik Solia S45 Serial# [id number] Sensin.5mV Threshold: 0.6V@0.5ms Impedance: 507 Ohms RV lead: Model# Biotronik Solia S53 Serial# [id number] Sensin.5mV Threshold: 0.6V@0.4ms Impedance: 663 Ohms POST [...] El (more content not included)... Normal [facility] SPUTUM CULTUREon 03-17-2022 Epithelial cells LM Ql (Urine sed) Few Normal [facility] Comment on above: Performed By: #### B MP, BNP #### [facility] [address] [address] [address] Leni Hamlin Gram Stain Evaluation Comment Normal [facility] Comment on above: Result Comment: This specimen is of good quality and is acceptable for routine bacterial culture. Performed By: #### B MP, BNP #### [facility] [address] [address] [address] Leni Hamlin Lower Respiratory Culture Final report Normal [facility] Comment on above: Performed By: #### B MP, BNP #### [facility] [address] [address] [address] Leni Hamlin Result 1 Comment Normal [facility] Comment on above: Result Comment: Few gram negative rods. Performed By: #### B MP, BNP #### [facility] [address] [address] [address] Leni Hamlin Result Comment: Rout ine respiratory bola Result 2 Comment Normal [facility] Comment on above: Result Comment: Few gram positive cocci Performed By: #### B MP, BNP #### [facility] [address] [place] [address] Dr. Leni Hamlin Result 3 Comment Normal [facility] Comment on above: Result Comment: Rare gram positive rods Performed By: #### B MP, BNP #### [facility] [address] [address] [address] Leni Hamlin Result 4 Normal [facility] Comment on above: Performed By: #### B MP, BNP #### [facility] [address] [address] [address] Leni Hamlin White Blood Cells Few Normal [facility] Comment on above: Performed By: #### B MP, BNP #### [facility] [address] [address] [address] Leni Hamlin BNPon 03-15-2022 Natriuretic peptide B (Bld) [Mass/Vol] 429.0 pg/mL Normal <=900.[address] [facility] Comment on above: Performed By: #### C MP, CRP #### [facility] [address] [place] [address] Dr. Leni Hamlin CBC AUTO DIFFon 03-15-2022 BASO # 0.0 103/ul Normal 0.0-0.[address] [facility] Comment on above: Performed By: #### C VDAGS #### [facility] [address] [place] [address] Dr. Leni Hamlin Basophils/100 WBC (Bld) 0.2 % Normal 0.2-2.[address] [facility] Comment on above: Performed By: #### C VDAGS #### [facility] [address] [place] [address] Dr. Leni Hamlin EO # 0.0 103/ul Normal 0.0-0.[address] [facility] Comment on above: Performed By: #### C VDAGS #### [facility] [address] [place] [address] Dr. Leni Hamlin Eosinophils/100 WBC (Bld) 0.0 % Critically low 0.9-7.0 [facility] Comment on above: Performed By: #### C VDAGS #### [facility] [address] [place] [address] Dr. Leni Hamlin Erythrocyte distribution width (RBC) [Ratio] 13.6 % Normal 11.0-15.[address] [facility] Comment on above: Performed By: #### C VDAGS #### [facility] [address] [place] [address] Dr. Leni Hamlin Hematocrit (Bld) [Volume fraction] 44.5 % Normal 42.0-54.[address] [facility] Comment on above: Performed By: #### C VDAGS #### [facility] [address] [place] [address] Dr. Leni Hamlin Hemoglobin (Bld) [Mass/Vol] 13.8 g/dL Critically low 14.0-18.[address] [facility] Comment on above: Performed By: #### C VDAGS #### [facility] [address] [address] [address] Leni Hamlin IG # 0.35 10e3/ul Critically high 0.00-0.03 [facility] Comment on above: Performed By: #### C VDAGS #### [facility] [address] [address] [address] Leni Hamlin IG % 2.4 % Critically high 0.0-0.5 [facility] Comment on above: Performed By: #### C VDAGS #### [facility] [address] [address] [address] Leni Hamlin LYMPH # 0.6 103/ul Critically low 1.2-3.8 [facility] Comment on above: Performed By: #### C VDAGS #### [facility] [address] [address] [address] Leni Hamlin Lymphocytes/100 WBC (Bld) 4.1 % Critically low 20.5-60.0 [facility] Comment on above: Performed By: #### C VDAGS #### [facility] [address] [address] [address] Leni Hamlin MANUAL DIFF REQ NO Normal [facility] Comment on above: Performed By: #### C VDAGS #### [facility] [address] [address] [address] Leni Hamlin MCH (RBC) [Entitic mass] 29.4 pg Normal 25.9-34.0 [facility] Comment on above: Performed By: #### C VDAGS #### [facility] [address] [address] [address] Leni Hamlin MCHC (RBC) [Mass/Vol] 31.0 g/dL Normal 29.9-35.2 [facility] Comment on above: Performed By: #### C VDAGS #### [facility] [address] [address] [address] Leni Hamlin MCV (RBC) [Entitic vol] 94.7 fL Critically high 80.0-94.0 [facility] Comment on above: Performed By: #### C VDAGS #### [facility] [address] [place] [address] Dr. Leni Hamlin MONO # 0.7 103/ul Normal 0.3-0.8 [facility] Comment on above: Performed By: #### C VDAGS #### [facility] [address] [place] [address] Dr. Leni Hamlin Monocytes/100 WBC (Bld) 4.7 % Normal 1.7-12.0 [facility] Comment on above: Performed By: #### C VDAGS #### [facility] [address] [place] [address] Dr. Leni Hamlin NEUT # 12.9 103/ul Critically high 1.4-6.5 [facility] Comment on above: Performed By: #### C VDAGS #### [facility] [address] [place] [address] Dr. Leni Hamlin Neutrophils/100 WBC (Bld) 88.6 % Critically high 43.0-75.0 [facility] Comment on above: Performed By: #### C VDAGS #### [facility] [address] [place] [address] Dr. Leni Hamlin Platelet mean volume (Bld) [Entitic vol] 10.2 fL Normal 9.5-13.5 [facility] Comment on above: Performed By: #### C VDAGS #### [facility] [address] [place] [address] Dr. Leni Hamlin PLT 176 103/ul Normal 150-[address] [facility] Comment on above: Performed By: #### C VDAGS #### [facility] [address] [place] [address] Dr. Leni Hamlin RBC 4.70 106/ul Normal 4.70-6.[address] [facility] Comment on above: Performed By: #### C VDAGS #### [facility] [address] [place] [address] Dr. Leni Hamlin WBC 14.6 103/ul Critically high 4.0-11.0 [facility] Comment on above: Performed By: #### C VDAGS #### [facility] [address] [place] [address] Dr. Leni Hamlin PROF CHEM 8 (BAS METB)on Anion gap [Moles/Vol] 10.2 mmol/L Normal [facility] Comment on above: Performed By: #### C MP, CRP #### [facility] [address] [place] [address] Dr. Leni Hamlin Calcium [Mass/Vol] 8.0 mg/dL Critically low 8.5-10.1 [facility] Comment on above: Performed By: #### C MP, CRP #### [facility] [address] [place] [address] Dr. Leni Hamlin Chloride [Moles/Vol] 104 mmol/L Normal 98-107 [facility] Comment on above: Performed By: #### C MP, CRP #### [facility] [address] [place] [address] Dr. Leni Hamlin CO2 [Moles/Vol] 28.2 mmol/L Normal 21.0-32.0 [facility] Comment on above: Performed By: #### C MP, CRP #### [facility] [address] [place] [address] Dr. Leni Hamlin Creatinine [Mass/Vol] 1.36 mg/dL Critically high 0.70-1.30 [facility] Comment on above: Performed By: #### C MP, CRP #### [facility] [address] [place] [address] Dr. Leni Hamlin EGFR-AF CITIZ[place] >60 Normal >=60 [facility] Comment on above: Performed By: #### C MP, CRP #### [facility] [address] [place] [address] Dr. Leni Hamlin EGFR-NON AF CITIZEN [place] 51 mL/min/1.73m2 Critically low >=60 [facility] Comment on above: Performed By: #### C MP, CRP #### [facility] [address] [place] [address] Dr. Leni Hamlin Glucose [Mass/Vol] 205 mg/dL Critically high 74-106 [facility] Comment on above: Performed By: #### C MP, CRP #### [facility] [address] [place] [address] Dr. Leni Hamlin Potassium [Moles/Vol] 4.4 mmol/L Normal 3.5-5.1 [facility] Comment on above: Performed By: #### C MP, CRP #### [facility] [address] [place] [address] Dr. Leni Hamlin Sodium [Moles/Vol] 138 mmol/L Normal 136-145 [facility] Comment on above: Performed By: #### C MP, CRP #### [facility] [address] [place] [address] Dr. Leni Hamlin Urea nitrogen [Mass/Vol] 29.0 mg/dL Critically high 7.0-18.0 [facility] Comment on above: Performed By: #### C MP, CRP #### [facility] [address] [place] [address] Dr. Leni Hamlin Urea nitrogen/Creatinine [Mass ratio] 21.3 mg/mg Normal [facility] Comment on above: Performed By: #### C MP, CRP #### [facility] [address] [place] [address] Dr. Leni Hamlin BNPon 03-14-2022 Natriuretic peptide B (Bld) [Mass/Vol] 337.0 pg/mL Normal <=900.0 [facility] Comment on above: Performed By: #### C RP #### [facility] [address] [place] [address] Dr. Leni Hamlin CBC AUTO DIFFon 03-14-2022 BASO # 0.0 103/ul Normal 0.0-0.1 [facility] Comment on above: Performed By: #### C MP, CRP #### [facility] [address] [place] [address] Dr. Leni Hamlin Basophils/100 WBC (Bld) 0.2 % Normal 0.2-2.0 [facility] Comment on above: Performed By: #### C MP, CRP #### [facility] [address] [address] [address] Leni Hamlin EO # 0.0 103/ul Normal 0.0-0.7 [facility] Comment on above: Performed By: #### C MP, CRP #### [facility] [address] [address] [address] Leni Hamlin Eosinophils/100 WBC (Bld) 0.0 % Critically low 0.9-7.0 [facility] Comment on above: Performed By: #### C MP, CRP #### [facility] [address] [address] [address] Leni Hamlin Erythrocyte distribution width (RBC) [Ratio] 13.6 % Normal 11.0-15.0 [facility] Comment on above: Performed By: #### C MP, CRP #### [facility] [address] [place] [address] Dr. Leni Hamlin Hematocrit (Bld) [Volume fraction] 47.8 % Normal 42.0-54.0 [facility] Comment on above: Performed By: #### C MP, CRP #### [facility] [address] [address] [address] Leni Hamlin Hemoglobin (Bld) [Mass/Vol] 14.6 g/dL Normal 14.0-18.0 [facility] Comment on above: Performed By: #### C MP, CRP #### [facility] [address] [address] [address] Leni Hamlin IG # 0.22 10e3/ul Critically high 0.00-0.03 [facility] Comment on above: Performed By: #### C MP, CRP #### [facility] [address] [address] [address] Leni Hamlin IG % 1.3 % Critically high 0.0-0.5 [facility] Comment on above: Performed By: #### C MP, CRP #### [facility] [address] [place] [address] Dr. Leni Hamlin LYMPH # 0.5 103/ul Critically low 1.2-3.8 [facility] Comment on above: Performed By: #### C MP, CRP #### [facility] [address] [address] [address] Leni Hamlin Lymphocytes/100 WBC (Bld) 2.9 % Critically low 20.5-60.0 [facility] Comment on above: Performed By: #### C MP, CRP #### [facility] [address] [address] [address] Leni Hamlin MANUAL DIFF REQ NO Normal [facility] Comment on above: Performed By: #### C MP, CRP #### [facility] [address] [place] [address] Dr. Leni Hamlin MCH (RBC) [Entitic mass] 29.4 pg Normal 25.9-34.0 [facility] Comment on above: Performed By: #### C MP, CRP #### [facility] [address] [place] [address] Dr. Leni Hamlin MCHC (RBC) [Mass/Vol] 30.5 g/dL Normal 29.9-35.2 [facility] Comment on above: Performed By: #### C MP, CRP #### [facility] [address] [address] [address] Leni Hamlin MCV (RBC) [Entitic vol] 96.4 fL Critically high 80.0-94.0 [facility] Comment on above: Performed By: #### C MP, CRP #### [facility] [address] [place] [address] Dr. Leni Hamlin MONO # 1.1 103/ul Critically high 0.3-0.8 [facility] Comment on above: Performed By: #### C MP, CRP #### [facility] [address] [place] [address] Dr. Leni Hamlin Monocytes/100 WBC (Bld) 6.4 % Normal 1.7-12.0 [facility] Comment on above: Performed By: #### C MP, CRP #### [facility] [address] [place] [address] Dr. Leni Hamlin NEUT # 15.2 103/ul Critically high 1.4-6.5 [facility] Comment on above: Performed By: #### C MP, CRP #### [facility] [address] [place] [address] Dr. Leni Hamlin Neutrophils/100 WBC (Bld) 89.2 % Critically high 43.0-75.0 [facility] Comment on above: Performed By: #### C MP, CRP #### [facility] [address] [place] [address] Dr. Leni Hamlin Platelet mean volume (Bld) [Entitic vol] 10.4 fL Normal 9.5-13.5 [facility] Comment on above: Performed By: #### C MP, CRP #### [facility] [address] [place] [address] Dr. Leni Hamlin PLT 167 103/ul Normal 150-450 [facility] Comment on above: Performed By: #### C MP, CRP #### [facility] [address] [place] [address] Dr. Leni Hamlin RBC 4.96 106/ul Normal 4.70-6.10 [facility] Comment on above: Performed By: #### C MP, CRP #### [facility] [address] [place] [address] Dr. Leni Hamlin WBC 17.0 103/ul Critically high 4.0-11.0 [facility] Comment on above: Performed By: #### C MP, CRP #### [facility] [address] [place] [address] Dr. Leni Hamlin PROF CHEM 8 (BAS METB)on Anion gap [Moles/Vol] 7.0 mmol/L Normal [facility] Comment on above: Performed By: #### C VDAGS #### [facility] [address] [place] [address] Dr. Leni Hamlin Calcium [Mass/Vol] 8.3 mg/dL Critically low 8.5-10.[address] [facility] Comment on above: Performed By: #### C VDAGS #### [facility] [address] [place] [address] Dr. Leni Hamlin Chloride [Moles/Vol] 102 mmol/L Normal 98-107 [facility] Comment on above: Performed By: #### C VDAGS #### [facility] [address] [place] [address] Dr. Leni Hamlin CO2 [Moles/Vol] 29.6 mmol/L Normal 21.0-32.0 [facility] Comment on above: Performed By: #### C VDAGS #### [facility] [address] [place] [address] Dr. Leni Hamlin Creatinine [Mass/Vol] 1.48 mg/dL Critically high 0.70-1.30 [facility] Comment on above: Performed By: #### C VDAGS #### [facility] [address] [place] [address] Dr. Leni Hamlin EGFR-AF [place]IZ[place] 56 mL/min/1.73m2 Critically low >=60 [facility] Comment on above: Performed By: #### C VDAGS #### [facility] [address] [place] [address] Dr. Leni Hamlin EGFR-NON AF CITIZEN OF [place] 47 mL/min/1.73m2 Critically low >=60 [facility] Comment on above: Performed By: #### C VDAGS #### [facility] [address] [place] [address] Dr. Leni Hamlin Glucose [Mass/Vol] 168 mg/dL Critically high 74-106 [facility] Comment on above: Performed By: #### C VDAGS #### [facility] [address] [place] [address] Dr. Leni Hamlin Potassium [Moles/Vol] 4.6 mmol/L Normal 3.5-5.1 [facility] Comment on above: Performed By: #### C VDAGS #### [facility] [address] [place] [address] Dr. Leni Hamlin Sodium [Moles/Vol] 134 mmol/L Critically low 136-145 [facility] Comment on above: Performed By: #### C VDAGS #### [facility] [address] [place], [place] [id number] Dr. Lnei Hamlin Urea nitrogen [Mass/Vol] 29.0 mg/dL Critically high 7.0-18.[address] [facility] Comment on above: Performed By: #### C VDAGS #### [facility] [address] [place] [address] Dr. Leni Hamlin Urea nitrogen/Creatinine [Mass ratio] 19.6 mg/mg Normal [facility] Comment on above: Performed By: #### C VDAGS #### [facility] [address] [place] [address] Dr. Leni Hamlin BNPon 03-13-2022 Natriuretic peptide B (Bld) [Mass/Vol] 501.0 pg/mL Normal <=900.[address] [facility] Comment on above: Performed By: #### B MP, BNP #### [facility] [address] [place] [address] Dr. Leni Hamlin CBC W MANUAL DIFFon 03-13-20 22 ATYPICAL LYMPH # Normal [facility] Comment on above: Performed By: #### C VDAGS #### [facility] [address] [place] [address] Dr. Leni Hamlin ATYPICAL LYMPH % Normal [facility] Comment on above: Performed By: #### C VDAGS #### [facility] [address] [place] [address] Dr. Leni Hamlin BAND # 2.1 103/ul Critically high 0.0-0.[address] [facility] Comment on above: Performed By: #### C VDAGS #### [facility] [address] [place] [address] Dr. Leni Hamlin BAND % 12 % Critically high 0-[address] [facility] Comment on above: Performed By: #### C VDAGS #### [facility] [address] [place] [address] Dr. Leni Hamlin BASOM # 0.00 103/ul Normal 0.00-0.[address] [facility] Comment on above: Performed By: #### C VDAGS #### [facility] [address] [place] [address] Dr. Yilan Hamlin BASOM % 0.0 % Critically low 0.2-2.0 [facility] Comment on above: Performed By: #### C VDAGS #### [facility] [address] [place] [address] Dr. Leni Hamlin BLAST # Normal [facility] Comment on above: Performed By: #### C VDAGS #### [facility] [address] [place] [address] Dr. Leni Hamlin BLAST % Normal [facility] Comment on above: Performed By: #### C VDAGS #### [facility] [address] [place] [address] Dr. Leni Hamlin CORRECTED WBC Normal 4.0-11.0 [facility] Comment on above: Performed By: #### C VDAGS #### [facility] [address] [place] [address] Dr. Leni Hamlin EOS # 0.00 103/ul Normal 0.00-0.70 [facility] Comment on above: Performed By: #### C VDAGS #### [facility] [address] [place] [address] Dr. Leni Hamlin EOS% 0.0 % Critically low 0.9-7.0 [facility] Comment on above: Performed By: #### C VDAGS #### [facility] [address] [place] [address] Dr. Leni Hamlin HCT 51.2 % Normal 42.0-54.[address] [facility] Comment on above: Performed By: #### C VDAGS #### [facility] [address] [place] [address] Dr. Leni Hamlin HGB 15.4 g/dl Normal 14.0-18.0 [facility] Comment on above: Performed By: #### C VDAGS #### [facility] [address] [place] [address] Dr. Leni Hamlin LYMPHM # 0.52 103/ul Critically low 1.20-3.[address] [facility] Comment on above: Performed By: #### C VDAGS #### [facility] [address] [place] [address] Dr. Leni Hamlin LYMPHM% 3.0 % Critically low 20.5-60.0 The [facility] Comment on above: Performed By: #### C VDAGS #### [facility] [address] [place] [address] Dr. Leni Hamlin MCH 29.6 pg Normal 25.9-34.[address] [facility] Comment on above: Performed By: #### C VDAGS #### [facility] [address] [place] [address] Dr. Leni Halmin MCHC 30.1 g/dl Normal 29.9-35.[address] [facility] Comment on above: Performed By: #### C VDAGS #### [facility] [address] [place] [address] Dr. Leni Hamlin MCV 98.5 fL Critically high 80.0-94.[address] [facility] Comment on above: Performed By: #### C VDAGS #### [facility] [address] [place] [address] Dr. Leni Hamlin METAMYELOCYTE # Normal [facility] Comment on above: Performed By: #### C VDAGS #### [facility] [address] [place] [address] Dr. Leni Hamlin METAMYELOCYTE % Normal [facility] Comment on above: Performed By: #### C VDAGS #### [facility] [address] [place] [address] Dr. Leni Hamlin MONOM# 0.86 103/ul Critically high 0.30-0.80 [facility] Comment on above: Performed By: #### C VDAGS #### [facility] [address] [place] [address] Dr. Leni Hamlin MONOM% 5.0 % Normal 1.7-12.0 [facility] Comment on above: Performed By: #### C VDAGS #### [facility] [address] [place] [address] Dr. Leni Hamlin MPV 10.0 fL Normal 9.5-13.5 [facility] Comment on above: Performed By: #### C VDAGS #### [facility] [address] [address] [address] Leni Hamlin MYELOCYTE # Normal [facility] Comment on above: Performed By: #### C VDAGS #### [facility] [address] [place] [address] Dr. Leni Hamlin MYELOCYTE % Normal [facility] Comment on above: Performed By: #### C VDAGS #### [facility] [address] [place] [address] Dr. Leni Hamlin NRBC Normal [facility] Comment on above: Performed By: #### C VDAGS #### [facility] [address] [place] [address] Dr. Leni Hamlin PLT 161 103/ul Normal 150-450 [facility] Comment on above: Performed By: #### C VDAGS #### [facility] [address] [place] [address] Dr. Leni Hamlin RBC 5.20 106/ul Normal 4.70-6.10 [facility] Comment on above: Performed By: #### C VDAGS #### [facility] [address] [place] [address] Dr. Leni Hamlin RDW 13.5 % Normal 11.0-15.0 [facility] Comment on above: Performed By: #### C VDAGS #### [facility] [address] [place] [address] Dr. Leni Hamlin SEG # 13.76 103/ul Critically high 1.40-6.50 [facility] Comment on above: Performed By: #### C VDAGS #### [facility] [address] [place] [address] Dr. Leni Hamlin SEG % 80.0 % Critically high 43.0-75.0 [facility] Comment on above: Performed By: #### C VDAGS #### [facility] [address] [place] [address] Dr. Leni Hamlin WBC 17.2 103/ul Critically high 4.0-11.0 [facility] Comment on above: Performed By: #### C VDAGS #### [facility] [address] [place] [address] Dr. Leni Hamlin PROF CHEM 8 (BAS METB)on Anion gap [Moles/Vol] 12.5 mmol/L Normal [facility] Comment on above: Performed By: #### C VDAGS #### [facility] [address] [place] [address] Dr. Leni Hamlin Calcium [Mass/Vol] 8.4 mg/dL Critically low 8.5-10.[address] [facility] Comment on above: Performed By: #### C VDAGS #### [facility] [address] [place] [address] Dr. Leni Hamlin Chloride [Moles/Vol] 100 mmol/L Normal 98-107 [facility] Comment on above: Performed By: #### C VDAGS #### [facility] [address] [place] [address] Dr. Leni Hamlin CO2 [Moles/Vol] 26.7 mmol/L Normal 21.0-32.0 [facility] Comment on above: Performed By: #### C VDAGS #### [facility] [address] [place] [address] Dr. Leni Hamlin Creatinine [Mass/Vol] 1.87 mg/dL Critically high 0.70-1.30 [facility] Comment on above: Performed By: #### C VDAGS #### [facility] [address] [place] [address] Dr. Leni Hamlin EGFR-AF [place]IZ[place] 43 mL/min/1.73m2 Critically low >=60 [facility] Comment on above: Performed By: #### C VDAGS #### [facility] [address] [place] [address] Dr. Leni Hamlin EGFR-NON AF CITIZEN [place] 36 mL/min/1.73m2 Critically low >=60 [facility] Comment on above: Performed By: #### C VDAGS #### [facility] [address] [address] [address] Leni Hamlin Glucose [Mass/Vol] 222 mg/dL Critically high 74-106 [facility] Comment on above: Performed By: #### C VDAGS #### [facility] [address] [place] [address] Dr. Leni Hamlin Potassium [Moles/Vol] 4.2 mmol/L Normal 3.5-5.1 [facility] Comment on above: Performed By: #### C VDAGS #### [facility] [address] [place] [address] Dr. Leni Hamlin Sodium [Moles/Vol] 135 mmol/L Critically low 136-145 [facility] Comment on above: Performed By: #### C VDAGS #### [facility] [address] [place] [address] Dr. Leni Hamlin Urea nitrogen [Mass/Vol] 25.0 mg/dL Critically high 7.0-18.0 [facility] Comment on above: Performed By: #### C VDAGS #### [facility] [address] [place] [address] Dr. Leni Hamlin Urea nitrogen/Creatinine [Mass ratio] 13.4 mg/mg Normal [facility] Comment on above: Performed By: #### C VDAGS #### [facility] [address] [place] [address] Dr. Leni Hamlin Anion gap [Moles/Vol] 10.7 mmol/L Normal [facility] Comment on above: Performed By: #### B MP, BNP #### [facility] [address] [place] [address] Dr. Leni Hamlin Calcium [Mass/Vol] 8.2 mg/dL Critically low 8.5-10.1 [facility] Comment on above: Performed By: #### B MP, BNP #### [facility] [address] [place] [address] Dr. Leni Hamlin Chloride [Moles/Vol] 101 mmol/L Normal 98-107 [facility] Comment on above: Performed By: #### B MP, BNP #### [facility] [address] [address] [address] Leni Hamlin CO2 [Moles/Vol] 30.0 mmol/L Normal 21.0-32.0 [facility] Comment on above: Performed By: #### B MP, BNP #### [facility] [address] [address] [address] Leni Hamlin Creatinine [Mass/Vol] 1.49 mg/dL Critically high 0.70-1.30 [facility] Comment on above: Performed By: #### B MP, BNP #### [facility] [address] [address] [address] Leni Hamlin EGFR-AF [place]IZ[place] 56 mL/min/1.73m2 Critically low >=60 [facility] Comment on above: Performed By: #### B MP, BNP #### [facility] [address] [place] [address] Dr. Leni Hamlin EGFR-NON AF [place] 46 mL/min/1.73m2 Critically low >=60 [facility] Comment on above: Performed By: #### B MP, BNP #### [facility] [address] [place] [address] Dr. Leni Hamlin Glucose [Mass/Vol] 158 mg/dL Critically high 74-106 [facility] Comment on above: Performed By: #### B MP, BNP #### [facility] [address] [place] [address] Dr. Leni Hamlin Potassium [Moles/Vol] 5.7 mmol/L Critically high 3.5-5.1 [facility] Comment on above: Performed By: #### B MP, BNP #### [facility] [address] [place] [address] Dr. Leni Hamlin Sodium [Moles/Vol] 136 mmol/L Normal 136-145 [facility] Comment on above: Performed By: #### B MP, BNP #### [facility] [address] [place] [address] Dr. Leni Hamlin Urea nitrogen [Mass/Vol] 19.0 mg/dL Critically high 7.0-18.0 [facility] Comment on above: Performed By: #### B MP, BNP #### [facility] [address] [place] [address] Dr. Leni Hamlin Urea nitrogen/Creatinine [Mass ratio] 12.8 mg/mg Normal [facility] Comment on above: Performed By: #### B MP, BNP #### [facility] [address] [place] [address] Dr. Leni Hamlin BNPon 03-12-2022 Natriuretic peptide B (Bld) [Mass/Vol] 405.0 pg/mL Normal <=900.0 [facility] Comment on above: Performed By: #### B MP, BNP #### [facility] [address] [place] [address] Dr. Leni Hamlin CBC AUTO DIFFon 03-12-2022 BASO # 0.1 103/ul Normal 0.0-0.1 [facility] Comment on above: Performed By: #### C BC #### [facility] [address] [place] [address] Dr. Leni Hamlin Basophils/100 WBC (Bld) 0.3 % Normal 0.2-2.0 [facility] Comment on above: Performed By: #### C BC #### [facility] [address] [place] [address] Dr. Leni Hamlin EO # 0.0 103/ul Normal 0.0-0.7 [facility] Comment on above: Performed By: #### C BC #### [facility] [address] [place] [address] Dr. Leni Hamlin Eosinophils/100 WBC (Bld) 0.1 % Critically low 0.9-7.0 [facility] Comment on above: Performed By: #### C BC #### [facility] [address] [place] [address] Dr. Leni Hamlin Erythrocyte distribution width (RBC) [Ratio] 13.3 % Normal 11.0-15.0 [facility] Comment on above: Performed By: #### C BC #### [facility] [address] [place] [address] Dr. Leni Hamlin Hematocrit (Bld) [Volume fraction] 52.2 % Normal 42.0-54.0 [facility] Comment on above: Performed By: #### C BC #### [facility] [address] [place] [address] Dr. Leni Hamlin Hemoglobin (Bld) [Mass/Vol] 16.5 g/dL Normal 14.0-18.0 [facility] Comment on above: Performed By: #### C BC #### [facility] [address] [place] [address] Dr. Leni Hamlin IG # 0.19 10e3/ul Critically high 0.00-0.03 [facility] Comment on above: Performed By: #### C BC #### [facility] [address] [place] [address] Dr. Leni Hamlin IG % 1.0 % Critically high 0.0-0.5 [facility] Comment on above: Performed By: #### C BC #### [facility] [address] [place] [address] Dr. Leni Hamlin LYMPH # 0.8 103/ul Critically low 1.2-3.8 [facility] Comment on above: Performed By: #### C BC #### [facility] [address] [place] [address] Dr. Leni Hamlin Lymphocytes/100 WBC (Bld) 3.8 % Critically low 20.5-60.0 [facility] Comment on above: Performed By: #### C BC #### [facility] [address] [place] [address] Dr. Leni Hamlin MANUAL DIFF REQ NO Normal [facility] Comment on above: Performed By: #### C BC #### [facility] [address] [place] [address] Dr. Leni Hamlin MCH (RBC) [Entitic mass] 29.6 pg Normal 25.9-34.0 [facility] Comment on above: Performed By: #### C BC #### [facility] [address] [place] [address] Dr. Leni Hamlin MCHC (RBC) [Mass/Vol] 31.6 g/dL Normal 29.9-35.2 [facility] Comment on above: Performed By: #### C BC #### [facility] [address] [address] [address] Leni Hamlin MCV (RBC) [Entitic vol] 93.7 fL Normal 80.0-94.0 [facility] Comment on above: Performed By: #### C BC #### [facility] [address] [address] [address] Leni Hamlin MONO # 1.6 103/ul Critically high 0.3-0.8 [facility] Comment on above: Performed By: #### C BC #### [facility] [address] [address] [address] Leni Hamlin Monocytes/100 WBC (Bld) 8.3 % Normal 1.7-12.0 [facility] Comment on above: Performed By: #### C BC #### [facility] [address] [address] [address] Leni Hamlin NEUT # 17.0 103/ul Critically high 1.4-6.5 [facility] Comment on above: Performed By: #### C BC #### [facility] [address] [address] [address] Leni Hamlin Neutrophils/100 WBC (Bld) 86.5 % Critically high 43.0-75.0 [facility] Comment on above: Performed By: #### C BC #### [facility] [address] [address] [address] Leni Hamlin Platelet mean volume (Bld) [Entitic vol] 10.0 fL Normal 9.5-13.5 [facility] Comment on above: Performed By: #### C BC #### [facility] [address] [address] [address] Leni Hamlin PLT 194 103/ul Normal 150-[address] [facility] Comment on above: Performed By: #### C BC #### [facility] [address] [address] [address] Leni Hamlin RBC 5.57 106/ul Normal 4.70-6.[address] [facility] Comment on above: Performed By: #### C BC #### [facility] [address] [place], [place] [address] Dr. Leni Hamlin WBC 19.7 103/ul Critically high 4.0-11.0 [facility] Comment on above: Performed By: #### C BC #### [facility] [address] [place], [place] [address] CSPINE WO CONon CT CSPINE WO CON EXAMINATION: CT CSPINE [...] Date: 2022-03-12 13:42 Normal [address] [facility] CT HEAD WO CONon 03-12-2022 CT HEAD [...] Date: 2022-03-12 13:[address] [facility] CTA CHEST WO W CONon 022 CTA [...] Date: 2022-03-12 14:[address] [facility] CULTURE BLOODon 03-12-2022 Microscopic examination of blood, culture Culture Observations: NO GROWTH AT 5 DAYS. Normal The [facility] Comment on above: Performed By: #### C MP, CRP #### [facility] [address] [place] [address] Dr. Leni Hamlin Microscopic examination of blood, culture Culture Observations: NO GROWTH AT 5 DAYS. Normal The [facility] Comment on above: Performed By: #### C MP, CRP #### [facility] [address] [address] [address] Leni Hamlin Covid-19 PCR (CVDTB)on SARS-CoV-2 (COVID-19) RNA VENESSA+probe Ql (Unsp spec) Not detected Normal NOT DETECTED [facility] Comment on above: Result Comment: When diagnostic testing is negative, the possibility of a false negative should be considered in the context of a patient's recent exposures and the presence of clinical signs and symptoms consistent with SARS-CoV-2. This test is not yet approved or cleared by the [place] Food and Drug Administration (FDA). This test was developed by [employer], [place]. The performance characteristics of this test were validated by The [facility]. The results are not intended to be used as the sole means for clinical diagnosis or patient management decisions. The [facility] is authorized under Clinical Laboratory Improvement Amendments [...] for this test is supported by the [place] of Health and Human Service's declaration that [...] By: #### C RP #### [facility] [address] [place] [address] Dr. Leni Hamlin D-DIMERon 03-12-2022 D-DIMER 6.00 mg/L FEU Critically high 0.19-0.50 [facility] Comment on above: Performed By: #### B MP, BNP #### [facility] [address] [place] [address] Dr. Leni Hamlin D-DIMER COMMENTS SEE BELOW Normal [facility] Comment on above: Result Comment: Incr eases [...] #### B MP, BNP #### [facility] [address] [place] [address] Dr. Leni Hamlin ER URINE PROFILEon 2 Bilirubin Ql (U) Negative Normal NEGATIVE [facility] Comment on above: Performed By: #### C RP #### [facility] [address] [place] [address] Dr. Leni Hamlin Clarity (U) CLEAR Normal CLEAR [facility] Comment on above: Performed By: #### C RP #### [facility] [address] [place] [address] Dr. Leni Hamlin Color (U) YELLOW Normal YELLOW [facility] Comment on above: Performed By: #### C RP #### [facility] [address] [place] [address] Dr. Leni ELLIS A micrscopic examination will be performed if indicated. Normal [facility] Comment on above: Performed By: #### C RP #### [facility] [address] [place] [address] Dr. Leni Hamlin Glucose Ql (U) Negative Normal NEGATIVE [facility] Comment on above: Performed By: #### C RP #### [facility] [address] [place] [address] Dr. Leni Hamlin Hemoglobin Ql (U) SMALL Abnormal NEGATIVE [facility] Comment on above: Performed By: #### C RP #### [facility] [address] [place] [address] Dr. Leni Hamlin Ketones Ql (U) Negative Normal NEGATIVE [facility] Comment on above: Performed By: #### C RP #### [facility] [address] [place] [address] Dr. Leni Hamlin LEUKOCYTES Negative Normal NEGATIVE [facility] Comment on above: Performed By: #### C RP #### [facility] [address] [place] [address] Dr. Leni Hamlin Nitrite Ql (U) Negative Normal NEGATIVE [facility] Comment on above: Performed By: #### C RP #### [facility] [address] [place] [address] Dr. Leni Hamlin pH (U) 5.5 [pH] Normal 5-9 [facility] Comment on above: Performed By: #### C RP #### [facility] [address] [place] [address] Dr. Leni Hamlin SPEC GRAVITY <=1.005 Abnormal 1.005-<=1.025 [facility] Comment on above: Performed By: #### C RP #### [facility] [address] [place] [address] Dr. Leni Hamlin UA PROTEIN >300 Abnormal NEGATIVE/ TRACE [facility] Comment on above: Performed By: #### C RP #### [facility] [address] [place] [address] Dr. Leni Hamlin UR MICRO IND INDICATED Normal [facility] Comment on above: Performed By: #### C RP #### [facility] [address] [place] [address] Dr. Leni Hamlin Urobilinogen Qn (U) 0.2 {Stacy'U}/dL Normal 0.2 - 1. 0 [facility] Comment on above: Performed By: #### C RP #### [facility] [address] [place] [address] Dr. Leni Hamlin LACTATE/LACTIC ACIDon 2021 Lactate [Moles/Vol] 0.5 mmol/L Normal 0.4-2.0 [facility] Comment on above: Performed By: #### B MP, BNP #### [facility] [address] [place] [address] Dr. Leni Hamlin Lactate [Moles/Vol] 1.6 mmol/L Normal 0.4-2.0 [facility] Comment on above: Performed By: #### L ACT #### [facility] [address] [place] [address] Dr. Leni Hamlin PROF 14(COMP METB)on 022 Albumin [Mass/Vol] 3.1 g/dL Critically low 3.4-5.0 [facility] Comment on above: Performed By: #### B MP, BNP #### [facility] [address] [address] [address] Leni Hamlin Albumin/Globulin [Mass ratio] 0.8 {ratio} Normal [facility] Comment on above: Performed By: #### B MP, BNP #### [facility] [address] [address] [address] Leni Hamlin ALP [Catalytic activity/Vol] 52 U/L Normal 46-116 [facility] Comment on above: Performed By: #### B MP, BNP #### [facility] [address] [place] [address] Dr. Leni Hamlin ALT [Catalytic activity/Vol] 27 U/L Normal 16-63 [facility] Comment on above: Performed By: #### B MP, BNP #### [facility] [address] [place] [address] Dr. Leni Hamlin Anion gap [Moles/Vol] 12.9 mmol/L Normal [facility] Comment on above: Performed By: #### B MP, BNP #### [facility] [address] [address] [address] Leni Hamlin AST [Catalytic activity/Vol] 14 U/L Critically low 15-37 [facility] Comment on above: Performed By: #### B MP, BNP #### [facility] [address] [place] [address] Dr. Leni Hamlin Bilirubin [Mass/Vol] 1.2 mg/dL Critically high 0.2-1.0 [facility] Comment on above: Performed By: #### B MP, BNP #### [facility] [address] [place] [address] Dr. Leni Hamlin Calcium [Mass/Vol] 8.2 mg/dL Critically low 8.5-10.1 [facility] Comment on above: Performed By: #### B MP, BNP #### [facility] [address] [place] [address] Dr. Leni Hamlin Chloride [Moles/Vol] 99 mmol/L Normal 98-107 [facility] [facility] Comment on above: Performed By: #### B MP, BNP #### [facility] [address] [place] [address] Dr. Leni Hamlin CO2 [Moles/Vol] 28.4 mmol/L Normal 21.0-32.0 [facility] Comment on above: Performed By: #### B MP, BNP #### [facility] [address] [place] [address] Dr. Leni Hamlin Creatinine [Mass/Vol] 1.44 mg/dL Critically high 0.70-1.30 [facility] Comment on above: Performed By: #### B MP, BNP #### [facility] [address] [place] [address] Dr. Leni Hamlin EGFR-AF CITIZEN [place] 58 mL/min/1.73m2 Critically low >=60 [facility] Comment on above: Performed By: #### B MP, BNP #### [facility] [address] [place] [address] Dr. Leni Hamlin EGFR-NON AF CITIZEN OF [place] 48 mL/min/1.73m2 Critically low >=60 [facility] Comment on above: Performed By: #### B MP, BNP #### [facility] [address] [place] [address] Dr. Leni Hamlin Globulin (S) [Mass/Vol] 3.8 g/dL Normal [facility] Comment on above: Performed By: #### B MP, BNP #### [facility] [address] [place] [address] Dr. Leni Hamlin Glucose [Mass/Vol] 137 mg/dL Critically high 74-106 [facility] Comment on above: Performed By: #### B MP, BNP #### [facility] [address] [place] [address] Dr. Leni Hamlin Potassium [Moles/Vol] 4.3 mmol/L Normal 3.5-5.1 [facility] Comment on above: Performed By: #### B MP, BNP #### [facility] [address] [place] [address] Dr. Leni Hamlin Protein [Mass/Vol] 6.9 g/dL Normal 6.1-8.2 [facility] Comment on above: Performed By: #### B MP, BNP #### [facility] [address] [place] [address] Dr. Leni Hamlin Sodium [Moles/Vol] 136 mmol/L Normal 136-145 [facility] Comment on above: Performed By: #### B MP, BNP #### [facility] [address] [place] [address] Dr. Leni Hamlin Urea nitrogen [Mass/Vol] 15.0 mg/dL Normal 7.0-18.0 [facility] Comment on above: Performed By: #### B MP, BNP #### [facility] [address] [place] [address] Dr. Leni Hamlin Urea nitrogen/Creatinine [Mass ratio] 10.4 mg/mg Normal [facility] Comment on above: Performed By: #### B MP, BNP #### [facility] [address] [place] [address] Dr. Leni Hamlin PROTIMEon 03-12-2022 INR Coag (PPP) [Relative time] 1.07 {INR} Normal [facility] Comment on above: Performed By: #### B MP, BNP #### [facility] [address] [place] [address] Dr. Leni Hamlin INR GUIDELINES SEE BELOW Normal [facility] Comment on above: Result Comment: WAQAS RED INR: 2.0 - 3.0 CONDITIONS NOT LISTED BELOW 2.5 - 3.5 FOR PROSTHETIC HEART VALVE REPLACEMENT 2.5 - 3.5 RECURRENT THROMBOSIS Performed By: #### B MP, BNP #### [facility] [address] [place] [address] Dr. Leni Hamlin PT Coag (PPP) [Time] 11.5 s Normal 9.0-11.6 [facility] Comment on above: Performed By: #### B MP, BNP #### [facility] [address] [place] [address] Dr. Leni Hamlin TROPONIN, HIGH SENSITIVITYon 03-12-2022 HSTROP 12.8 pg/mL Normal 4.0-76.[address] [facility] Comment on above: Result Comment: CUT- OFF POINTS HAVE BEEN ESTABLISHED BASED ON THE FOURTH UNIVERSAL DEFINITIONS OF MYOCARDIAL INFARCTION. THE UPPER REFERENCE LIMIT (URL) OF TROPONIN, DEFINED THE 99TH PERCENTILE OF cTnI DISTRIBUTION IN A REFERENCE POPULATION, HAS BEEN CONFIRMED THE DECISION THRESHOLD FOR [place] DIAGNOSIS. Performed By: #### B MP, BNP #### [facility] [address] [place] [address] Dr. Leni Hamlin URINE MICROSCOPIC ONLYon BACTERIA NONE SEEN Normal NONE SEEN [facility] Comment on above: Performed By: #### C RP #### [facility] [address] [place] [address] Dr. Leni Hamlin Bacteria identified Cx Nom (U) NOT INDICATED Normal [facility] Comment on above: Performed By: #### C RP #### [facility] [address] [place] [address] Dr. Leni Hamlin CAST NONE SEEN Normal NONE SEEN [facility] Comment on above: Performed By: #### C RP #### [facility] [address] [place] [address] Dr. Leni Hamlin Crystals LM Nom (Urine sed) NONE SEEN Normal NONE SEEN [facility] Comment on above: Performed By: #### C RP #### [facility] [address] [place] [address] Dr. Leni Hamlin Epithelial cells LM Ql (Urine sed) NONE SEEN Normal NONE SEEN /RARE [facility] Comment on above: Performed By: #### C RP #### [facility] [address] [place] [address] Dr. Leni Hamlin MUCOUS MODERATE Abnormal NONE SEEN [facility] Comment on above: Performed By: #### C RP #### [facility] [address] [place] [address] Dr. Leni Hamlin RBC 2-5 Abnormal 0-[address] [facility] Comment on above: Performed By: #### C RP #### [facility] [address] [address] [address] Leni Hamlin WBC NONE SEEN Normal NONE SEEN [facility] Comment on above: Performed By: #### C RP #### [facility] [id number] Leni Hamlin XR RIBS RT PA [...] Date: 2022-03-12 13:35 Normal [address] [facility] Covid-19 PCR ([facility]on 01-09 SARS-CoV-2 (COVID-19) RNA VENESSA+probe Ql (Unsp spec) Not detected Normal NOT DETECTED [facility] Comment on above: Result Comment: This test is not yet approved or cleared by the [place] FDA. When there are no FDA-approved or cleared tests available, and other criteria are met, FDA can make tests available under an emergency access mechanism called an Emergency Use Authorization (EUA). The EUA for this test is supported by the [place] of Health and Human Service's (HHS's) declaration [...] By: #### C RP #### [facility] [address] [place] [address] Dr. Leni Hamlin INFLUENZA A AND B AGon 01-25 [facility] SEE BELOW Normal [facility] Comment on above: Result Comment: Nega tive for Flu A protein angiten. Infection due to Flu A cannot be ruled out. Flu A angiten in the sample may be below the detection limit of the test. Performed By: #### C RP #### [facility] [address] [place] [address] Dr. Leni Hamlin [facility] SEE BELOW Normal [facility] Comment on above: Result Comment: Nega tive for Flu B protein antigen. Infection due to Flu B cannot be ruled out. Flu B antigen in the sample may be below the detection limit of the test. Performed By: #### C RP #### [facility] [address] [place] [address] Dr. Leni Hamlin INFLUENZA A AG Negative Normal NEGATIVE SEE COMMENT [facility] Comment on above: Performed By: #### C RP #### [facility] [address] [place] [address] Dr. Leni Hamlin INFLUENZA B AG Negative Normal NEGATIVE SEE COMMENT [facility] Comment on above: Performed By: #### C RP #### [facility] [address] [place] [address] Dr. Leni Hamlin INTERNAL CONTROLS Within Normal Limits Normal Wi thin Normal Limits [facility] Comment on above: Performed By: #### C RP #### [facility] [address] [place] [address] Dr. Leni Hamlin COVID-19 Antigenon 2 COVID-19 [...] its performance Cindy Disclaimer characteristic determined by [place] and Cindy Disclaimer validated at [facility]. This Cindy Disclaimer test has not [...] is terminated or revoked sooner. PERFORMED BY: [place] [address] PATHOLOGIST [employer]SEM[employer] ZOHAIB JEWELL M.D. Normal [facility] Comment on above: Performed By: #### C OVID-19 CINDY, SOFIANEG #### [facility] [address] [place] [address] Cindy Ag Negativeon 12-01-19 Cindy Ag Negative Negative Normal Negative [facility] Comment on above: Result Comment: This is a duplicate Cindy SARS Antigen (JENNIFER) result to be used for statistical tracking purpose only. PERFORMED BY: [place] [address] PATHOLOGIST [employer]SEM[employer] ZOHAIB JEWELL M.D. Performed By: #### C OVID-19 CINDY, SOFIANEG #### [facility] [address] [place] [address] Encounters Encounter Date Encounter Type Care Provider Facility Start: 04-24-2024 End: 04-24-2024 ambulatory [facility] Start: 03-30-2024 End: 03-31-2024 ambulatory Urvashi Rawls MD Facility:[facility] Start: 03-23-2024 End: 03-23-2024 ambulatory [facility] Start: 03-02-2024 End: 03-03-2024 ambulatory Urvashi Rawls MD Facility:[facility] Start: 02-26-2024 End: 02-26-2024 ambulatory [facility] Start: 01-31-2024 End: 01-31-2024 ambulatory [facility] Start: 01-27-2024 End: 01-28-2024 ambulatory Urvashi Rawls MD Facility: [facility] Start: 12-30-2023 End: 12-31-2023 ambulatory Urvashi Rawls MD Facility:[facility] Start: 09-16-2023 End: 09-17-2023 ambulatory Urvashi Rawls MD Facility: [facility] Start: 08-27-2023 End: 08-27-2023 ambulatory [facility] Start: 07-09-2023 End: 07-09-2023 ambulatory [facility] Start: 06-24-2023 End: 06-25-2023 ambulatory Urvashi Rawls MD Facility: [facility] Start: 06-10-2023 End: 06-11-2023 ambulatory Urvashi Rawls MD Facility: [facility] Start: 05-27-2023 End: 05-28-2023 ambulatory Urvashi Rawls MD Facility: [facility] Start: 05-13-2023 End: 05-13-2023 ambulatory [facility] Start: 05-08-2023 ambulatory [facility] Start: 01-16-2023 End: 01-16-[address] ELLIOT CHESTER . Facility:[facility] Start: 12-27-[address] ELLIOT Kessler Facili ty:[facility] Start: 12-18-2022 End: 12-18-2022 ambulatory [...] Start: 03-22-2022 End: 03-23-2022 ambulatory MODESTO BECERRA Facility:[facility] Start: 03-20-2022 End: 03-21-[address] ELLIOT CHESTER . Facility:[facility] Start: 03-13-2022 End: 03-15-2022 Evaluation and management of inpatient DR ELLIOT CHESTER . Facility:[facility] Start: 01-25-2022 End: 01-25-2022 ambulatory GAGANDEEP PAREDES Facility: Payers Date Payer Category Payer Medicare 2022 Unknown 1961 Medicare [id number] 1961 Self-pay 1959 Unknown [id number] 1948 Unknown [id number] 2.16.8 [id number] 1948 Unknown [id number] 2.16.84 0.1.560998.3.579.2.593 1948 Unknown [id number] 2.16.84 0.1.290574.3.579.2.593 1948 Unknown [id number] 2.16.84 0.1.181346.3.579.2.593 1948 Unknown [id number] 2.16.84 0.1.587105.3.579.2.593 1948 Unknown [id number] 2.16.84 0.1.736494.3.579.2.593 1948 Unknown [id number] 2.16.84 0.1.077052.3.579.2.593 1948 Unknown [id number] 2.16.84 0.1.477508.3.579.2.593 1948 Unknown [id number] 2.16.84 0.1.223096.3.579.2.593 1948 Unknown [id number] 2.16.84 0.1.907318.3.579.2.593 1948 Unknown [id number] 2.16.84 0.1.542967.3.579.2.593 1948 Unknown [id number] 2.16.84 0.1.732486.3.579.2.593 1948 Unknown [id number] 2.16.84 0.1.073162.3.579.2.593 1948 Unknown [id number] 2.16.84 0.1.369696.3.579.2.593 1948 Unknown [id number] 2.16. 840.1.509083.3.579.2.196 1948 Unknown [id number] 2.16. 840.1.619459.3.579.2.196 1948 Unknown [id number] 2.16. 840.1.741833.3.579.2.196 1948 Unknown [id number] 2.16. 840.1.345070.3.579.2.196 1948 Unknown [id number] 2.16. 840.1.765463.3.579.2.196 1948 Unknown [id number] 2.16. 840.1.917851.3.579.2.196 1948 Unknown [id number] 2.16. 840.1.399133.3.579.2.196 1948 Unknown [id number] 2.16. 840.1.935300.3.579.2.196 Progress note 04-24-2024 Note Date & Type Note Facility 04-24-2024 Note [facility] Subjective Brian Oneal is a 74 y.o. year old male patient being seen to discuss LAAO device. He was diagnosed with new on-set afib in February 2024 and started on Eliquis at that time. Since then he's noticed blood in his stools. Still gets intermittent chest pain when moving heavy things. Patient Active Problem List Diagnosis Chest pain Edema of lower extremity Syncope Cardiac device in situ Sick sinus syndrome (CMS/HCC) Severe claudication (CMS/HCC) Essential (primary) hypertension Nicotine dependence Obstructive sleep apnea of child Atrial fibrillation (CMS/HCC) Pneumonia Family History Problem Relation Name Age of Onset Coronary artery disease Mother Social History Tobacco Use Smoking status: Former Packs/day: 1 Types: Cigarettes Substance Use Topics Alcohol use: Not Currently HPI Brian is seen in follow-up referred from Dr. Chester's office for consideration of left atrial appendage closure. He is a 74-year-old man with paroxysmal atrial fibrillation diagnosed in February 2024 while admitted to the [facility]. He was started on Eliquis for anticoagulation given elevated [id number] score. He has been having episodes of blood in stools. He is status post pacemaker placement. He has peripheral vascular disease that is managed medically. 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 Major Monsalve and a stress test was ordered. This has not been done yet. He has been having symptoms of chest pain with exertion, relieved by rest. Review of Systems Constitutional: Positive for malaise/fatigue. Cardiovascular: Positive for chest pain ( tightness ) and claudication. Musculoskeletal: Positive for arthritis, back pain, joint pain, muscle weakness and myalgias. Gastrointestinal: Positive for hematochezia. Neurological: Positive for numbness. All other systems reviewed and are negative. Objective Visit Vitals BP 108/80 (BP Location: Left arm, Patient Position: Sitting) Pulse 80 Ht 1.727 m (5' 8 ) Wt 97.5 kg (215 lb) SpO2 95% BMI 32.69 kg/m??? Smoking Status Former BSA 2.16 m??? Physical Exam Constitutional: Appearance: He is well-developed. He is obese. He is not ill-appearing. HENT: Head: Normocephalic and atraumatic. Nose: Nose normal. Eyes: General: No scleral icterus. Pupils: Pupils are equal, round, and reactive to light. Neck: Thyroid: No thyromegaly. Vascular: No JVD. Cardiovascular: Rate and Rhythm: Normal rate and regular rhythm. Pulses: Radial pulses are 2+ on the right side and 2+ on the left side. Heart sounds: Normal heart sounds. No murmur heard. No friction rub. No gallop. Pulmonary: Effort: Pulmonary effort is normal. No respiratory distress. Breath sounds: Normal breath sounds. No wheezing or rales. Chest: Chest wall: No tenderness. Abdominal: General: Bowel sounds are normal. There is no distension. Palpations: Abdomen is soft. Tenderness: There is no abdominal tenderness. Musculoskeletal: General: No swelling. Cervical back: Neck supple. Skin: General: Skin is warm and dry. Findings: Bruising and ecchymosis present. Neurological: General: No focal deficit present. Mental Status: He is alert and oriented to person, place, and time. Psychiatric: Mood and Affect: Mood normal. Behavior: Behavior is cooperative. Judgment: Judgment normal. Allergies Allergies Allergen Reactions Azithromycin Medications Current Outpatient Medications: atorvastatin (Lipitor) 40 mg tablet, Take 1 tablet (40 mg) by mouth at bedtime., Disp: 90 tablet, Rfl: 3 Eliquis 5 mg tablet, Take 5 mg by mouth in the morning and at bedtime., Disp: , Rfl: metoprolol tartrate (Lopressor) 50 mg tablet, Take 50 mg by mouth in the morning and at bedtime., Disp: , Rfl: aspirin 81 mg EC tablet, Take 1 tablet (81 mg) by mouth in the morning. (Patient not taking: Reported on 04/24/2024), Disp: 90 tablet, Rfl: 3 gabapentin (Neurontin) 100 mg capsule, Take 200 mg by mouth in the morning., Disp: , Rfl: meloxicam (Mobic) 7.5 mg tablet, Take 7.5 mg by mouth in the morning., Disp: , Rfl: ranolazine (Ranexa) 500 mg 12 hr tablet, Take 1 tablet (500 mg) by mouth in the morning and at bedtime. Do not crush, chew, or split., Disp: 60 tablet, Rfl: 11 tiZANidine (Zanaflex) 4 mg tablet, Take 8 mg by mouth at bedtime., Disp: , Rfl: Recent Labs No visits with results within 6 Month(s) from this visit. Latest known visit with results is: [facility] Encounter on 03/22/2022 Component Date Value Ventricular Rate 03/22/2022 76 Atrial Rate 03/22/2022 76 SC Interval 03/22/2022 162 QRS DURATION 03/22/2022 144 QT Interval 03/22/2022 392 QTC CALCULATION(BAZETT) 03/22/2022 441 P [place] 03/22/2022 -14 R-[place] 03/22/2022 -20 T Wave [place] 03/22/2022 -6 Diagnosis 03/22/2022 Value:Normal sinus rhythm Right bundle branch block Abnormal ECG When compared with ECG of (more content not included)... [facility] Progress note 01-31-2024 Note Date & Type Note Facility 01-31-2024 Note [facility] Reason for visit: follow up for PVD HPI: Brian Oneal is a 73 y.o. year old with past medical history of SSS s/p PPM and PVD. He presents to cardiology clinic for routine follow up. Patient states that he is doing well. He denies any cardiac complaints or concerns. No chest pain. No SOB. No dizziness or lightheadedness. He reports that his leg pain has resolved completely with joint injections. No additional complaints or concerns at the present time. ----- Previous HPI per. Dr. Becerra 04/2022: [...] was initiated by the patient and conducted [id number]-face with use of audio-only real time telephone [...] 12/13/2021 does show evidence of PVCs with bur (more content not included)... [facility] Progress note 08-27-2023 Note Date & [...] $70 for a 30 day supply at [facility]. Lipid profile was done in May 2023. [facility] Progress note 08-27-2023 Note Date & Type Note Facility 08-27-2023 Note [facility] Reason for visit: follow up for [...] was initiated by the patient and conducted [id number]-face with use of audio-only real time telephone [...] since his prost (more content not included)... [facility] Progress note 05-13-2023 Note Date & Type Note Facility 05-13-2023 Note Patient here c/o LE numbness and pain during ambulation and standing. He had EMG and SAGAR's in March 2023. He sees Dr. Chester this afternoon. Recently saw neurosurgery and vascular surgery at [facility]. Dr. Quinonez started him on low dose aspirin and atorvastatin last week, which he states he has not started yet. He denies chest pain, SOB, and syncope. Review of Systems Constitutional: Positive for malaise/fatigue. Cardiovascular: Positive for claudication and leg swelling. Musculoskeletal: Positive for arthritis, back pain, muscle weakness and myalgias. All other systems reviewed and are negative. [facility] Progress note 05-13-2023 Note Date & Type Note Facility 05-13-2023 Note [facility] Reason for visit: lower extremity claudication [...] was initiated by the patient and conducted [id number]-ib-face with use of audio-only real time telephone [...] night many times (more content not included)... [facility] Progress note 05-08-2023 Note Date & [...] will see him in about 3 months. [facility] Progress note 05-08-2023 Note Date & [...] being on aspirin (more content not included)... [facility] Clinical Note 03-23-2022 Note Date & [...] by: ALONSO MASON Date: 2022-03-23 12:[address] [facility] Summary Purpose Family History No Family History [...] section and content) DATE CREATED AUTHOR 01/29/2022 [facility] DATE CREATED AUTHOR AUTHOR'S ORGANIZ ATION 04/23/2022 [facility] DATE CREATED AUTHOR AUTHOR'S ORGANIZ ATION 01/18/2023 [facility] DATE CREATED AUTHOR AUTHOR'S ORGANIZ ATION 04/05/2024 [facility] DATE CREATED AUTHOR AUTHOR'S ORGANIZ ATION 04/26/[address] [facility] FOR RECORDS PERTAINING TO PATIENTS [...] BE BASED ON THE PRIMARY CLINICAL RECORDS. [facility] [employer] provides no warranty or guarantee of the accuracy or completeness of information in this document.
== END 2024-04-30 13:47 | disposition home or self-care (01) ==
LOC: PM 13:47
PROVIDERS: PCP Family Medicine; Visit Provider Nurse Practitioner
DX: M47.816 Spondylosis without myelopathy or radiculopathy, lumbar region (principal); M48.062 Spinal stenosis, lumbar region with neurogenic claudication
CPT/HCPCS: G0463

== ENCOUNTER 2024-05-07 07:00 | Outpatient (OUT) | payer MEDICARE, OTHER, SELFPAY ==
--- NOTE | 2024-05-07 | PCN_ITS ---
CARDIAC STRESS TEST Requesting Physician: Procedure Date: 05/07/2024 This was a Lexiscan stress test with myocardial perfusion imaging, performed at the [facility] on 05/07/2024. The patient gave informed consent. The patient was attached to electrocardiographic monitoring. An intravenous line was secured. Baseline vital signs and ECG were obtained. Lexiscan 0.4 mg was infused intravenously, followed by administration of Cardiolite. The patient then went on to obtain myocardial perfusion imaging. Resting heart rate was 72 BPM and maximum heart rate was 83 BPM. Resting blood pressure was 180/92 and maximum blood pressure was 180/92. Resting ECG showed sinus rhythm with right bundle branch block. ECG following infusion of Lexiscan, showed sinus rhythm with occasional PVCs. There were no ischemic ST changes seen. Final ECG was comparable to baseline. SUMMARY OF THE FINDINGS: 1. No evidence of ischemic ECG changes seen following infusion of Lexiscan. 2. Resting, uncontrolled hypertension. 3. Myocardial perfusion imaging will be reported separately. [facility]
--- NOTE | 2024-05-07 06:45 | NM_ITS ---
Patient Name: MOUSTAPHA MAC MR#: [id number] : 1950 Exam Date: 05/07/2024 Ordering Doctor: MAJOR HARRISON M.D. RADIOLOGY REPORT PROCEDURE: NM VAIBHAV PERF SPECT REST STR COMPARISON: None. INDICATIONS: CHEST PAIN, ATRIAL FIBRILLATION TECHNIQUE: Exam Description: Stress/Rest one day protocol gated SPECT Rest Imagin.8 mCi Tc-99m Cardiolite IV on 05/07/2024 Stress Imaging 30.0 mCi Tc-99m Cardiolite IV on 05/07/2024 Exercise Protocol: 0.4 mg Lexiscan given IV Heart Rate (bpm): Rest: 72 Max: 83 PMHR: 57 Blood Pressure: Rest: 180/92 Max: 180/92 Symptoms: Rest and peak stress ECG findings were pending and the exercise portion of the study was pending per attending physician Dr. ALBRECHT . For more details please see separate cardiac stress test report. FINDINGS: QUALITY OF STUDY: Good. PERFUSION DEFECT: LOCATION: Basal inferoseptal. Basal inferior. Mid-inferior. SIZE: Medium (3-4 segments). SEVERITY: Moderate. TYPE: Reversible. WALL MOTION: Normal. LV SIZE: Enlarged; EDV 130 mL. TID / TCD: None; 1.1 LVEF: Normal. Calculated EF 60%. SUMMARY: Myocardial perfusion imaging study has ABNORMAL findings. CONCLUSION: 1. Moderate size moderate severity defect in the inferior wall, RCA distribution on stress images with redistribution on rest images suggesting an area reversible ischemia. Follow-up is recommended 2. Dilated left ventricle, EDV 130 milliliters 3. Borderline TID ratio 1.1 4. Pending exercise test results Dictated by: Christiano Stokes MD on 05/07/2024 at 14:48 Approved by: Christiano Stokes MD on 05/07/2024 at 14:50
--- OUTSIDE RECORDS SUMMARY | 2024-05-07 07:03 | XMS_ITS | CCD ---
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 Name Role Phone MODESTO BECERRA Admitting Unavailable [...] DR ZARATE Consulting Unavailable HOY ., DR ZARAET Primary Care Unavailable HOY ., DR ZARATE [...] Azithromycin; Translations: [AZITHROMYCIN] Drug Allergy 03-22-2022 The [facility] Repository (2 sources) Azithromycin Drug Allergy 03-03-2015 [facility] Repository (1 source) Ciprofloxacin Drug Allergy 12-18-2022 [facility] Repository Problems Active Problems Problem Classification Problem [...] 10-01-2022 Episodic Other aftercare (1 source) Other halfway (current) drug therapy; Translations: [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] Onset: 03-19-2022 Episodic Pneumonia [...] Range Facility Office Visiton 04-24-2024 Follow-up visit [id number] Wayne Oneal A 1950 M Date Provider Department Center 04/24/2024 367-ELODIA LITTLE RAMAKRISHNA Lucero Family History Problem Relation Age of Onset Coronary artery disease Mother Family Status - Relation Status Age at Mother Level of Service:79771 OK OFFICE/OUTPATIENT ESTABLISHED HIGH MDM 40 MIN Normal [facility] Office Visiton 01-31-2024 Follow-up visit [id number] Wayne Oneal A 1950 M Date Provider Department Center 01/31/2024 MAJOR ALMEIDA RAMAKRISHNA Lucero Family History Problem Relation Age of Onset Coronary artery disease Mother Family Status - Relation Status Age at Mother Level of Service:44323 [place] OFFICE/OUTPATIENT ESTABLISHED LOW MDM 20 MIN Normal [facility] Office Visiton 08-27-2023 Follow-up visit [id number] Wayne Oneal A 1950 M Date Provider Department Center 08/27/2023 MAJOR ALMEIDA Family History Problem Relation Age of Onset Coronary artery disease Mother Family Status - Relation Status Age at Mother Level of Service:58937 [place] OFFICE/OUTPATIENT ESTABLISHED LOW MDM 20-29 MIN Normal [facility] Office Visiton 05-13-2023 Follow-up visit [id number] Wayne Oneal A 1950 M Date Provider Department Center 05/13/2023 MAJOR ALMEIDA Family History Problem Relation Age of Onset Coronary artery disease Mother Family Status - Relation Status Age at Mother Level of Service:23142 [place] OFFICE/OUTPATIENT ESTABLISHED MOD MDM 30-39 MIN Normal [facility] Orders Onlyon 05-13-2023 Orders Only [id number] Wayne Oneal A 1950 Date Provider Department Center 05/13/2023 BRAYAN AGUDELO Hos Family History Problem Relation Age of Onset Coronary artery disease Mother Family Status - Relation Status Age at Mother Normal [facility] 29on 05-08-2023 27 Addended by: LEANA HENNING on: 05/09/2023 01:46 PM Modules accepted: Orders Normal [facility] Consulton 05-08-2023 Consult [id number] Wayne Oneal A 1950 Date Provider Department Center 05/08/2023 JOSE COX HVCVASENDJordi [place] [facility] Family History Problem Relation Age of Onset Coronary artery disease Mother Family Status - Relation Status Age at Mother Level of Service:59945 [place] OFFICE/OUTPATIENT NEW MODERATE MDM 45-59 MINUTES Reason for Visit and Comments: New Patient [632] - Numbness in bilateral legs Normal [facility] Covid-19 PCR (CVDTB)on SARS-CoV-2 (COVID-19) RNA VENESSA+probe Ql (Unsp spec) Not detected Normal NOT DETECTED [facility] Comment on above: Result Comment: When diagnostic [...] for this test is supported by the [place] of Health and Human Service's declaration that [...] BNP #### [facility] [address] [place] [address] Dr. Leni Hamlin INFLUENZA A AND B [facility] 01-16 [facility] SEE BELOW Normal [facility] Comment on above: Result Comment: Nega tive for Flu A protein angiten. Infection due to Flu A cannot be ruled out. Flu A angiten in the sample may be below the detection limit of the test. Performed By: #### C RP #### [facility] [address] [place] [address] Dr. [facility] Normal [facility] Comment on above: Result Comment: Nega tive for Flu B protein antigen. Infection due to Flu B cannot be ruled out. Flu B antigen in the sample may be below the detection limit of the test. Performed By: #### C RP #### [facility] [address] [place] [address] Dr. Leni Hamlin INFLUENZA A AG Negative Normal NEGATIVE SEE COMMENT [facility] Comment on above: Performed By: #### C RP #### [facility] [address] [place] [address] Dr. Leni Hamlin INFLUENZA B AG Negative Normal NEGATIVE SEE COMMENT [facility] Comment on above: Performed By: #### C RP #### [facility] [address] [place] [address] LSPINE WO CONon 3 CT LSPINE WO CON EXAMINATION: CT [id number] WO CON, 12/18/2022 3:26 PM EST HISTORY: [...] CIERA HERNÁNDEZ Date: 2022-12-18 15:56 Normal [facility] CBC AUTO DIFFon 10-03-2022 BASO # 0.1 103/ul Normal 0.0-0.1 [facility] Comment on above: Performed By: #### B MP, BNP #### [facility] [address] [address] [address] Leni Hamlin Basophils/100 WBC (Bld) 0.5 % Normal 0.2-2.0 [facility] Comment on above: Performed By: #### B MP, BNP #### [facility] [address] [place] [address] Dr. Leni Hamlin EO # 0.3 103/ul Normal 0.0-0.7 [facility] Comment on above: Performed By: #### B MP, BNP #### [facility] [address] [place] [address] Dr. Leni Hamlin Eosinophils/100 WBC (Bld) 2.2 % Normal 0.9-7.0 [facility] Comment on above: Performed By: #### B MP, BNP #### [facility] [address] [place] [address] Dr. Leni Hamlin Erythrocyte distribution width (RBC) [Ratio] 13.3 % Normal 11.0-15.0 [facility] Comment on above: Performed By: #### B MP, BNP #### [facility] [address] [place] [address] Dr. Leni Hamlin Hematocrit (Bld) [Volume fraction] 46.9 % Normal 42.0-54.0 [facility] Comment on above: Performed By: #### B MP, BNP #### [facility] [address] [place] [address] Dr. Leni Hamlin Hemoglobin (Bld) [Mass/Vol] 15.3 g/dL Normal 14.0-18.0 [facility] Comment on above: Performed By: #### B MP, BNP #### [facility] [address] [place] [address] Dr. Leni Hamlin IG # 0.18 10e3/ul Critically high 0.00-0.03 [facility] Comment on above: Performed By: #### B MP, BNP #### [facility] [address] [place] [address] Dr. Leni Hamlin IG % 1.3 % Critically high 0.0-0.5 [facility] Comment on above: Performed By: #### B MP, BNP #### [facility] [address] [place] [address] Dr. Leni Hamlin LYMPH # 1.9 103/ul Normal 1.2-3.8 [facility] Comment on above: Performed By: #### B MP, BNP #### [facility] [address] [place] [address] Dr. Leni Hamlin Lymphocytes/100 WBC (Bld) 13.6 % Critically low 20.5-60.0 [facility] Comment on above: Performed By: #### B MP, BNP #### [facility] [address] [place] [address] Dr. Leni Hamlin MANUAL DIFF REQ NO Normal [facility] Comment on above: Performed By: #### B MP, BNP #### [facility] [address] [place] [address] Dr. Leni Hamlin MCH (RBC) [Entitic mass] 29.2 pg Normal 25.9-34.0 [facility] Comment on above: Performed By: #### B MP, BNP #### [facility] [address] [place] [address] Dr. Leni Hamlin MCHC (RBC) [Mass/Vol] 32.6 g/dL Normal 29.9-35.2 [facility] Comment on above: Performed By: #### B MP, BNP #### [facility] [address] [place] [address] Dr. Leni Hamlin MCV (RBC) [Entitic vol] 89.5 fL Normal 80.0-94.0 [facility] Comment on above: Performed By: #### B MP, BNP #### [facility] [address] [place] [address] Dr. Leni Hamlin MONO # 0.9 103/ul Critically high 0.3-0.8 [facility] Comment on above: Performed By: #### B MP, BNP #### [facility] [address] [place] [address] Dr. Leni Hamlin Monocytes/100 WBC (Bld) 6.6 % Normal 1.7-12.0 [facility] Comment on above: Performed By: #### B MP, BNP #### [facility] [address] [place] [address] Dr. Leni Hamlin NEUT # 10.4 103/ul Critically high 1.4-6.5 [facility] Comment on above: Performed By: #### B MP, BNP #### [facility] [address] [address] [address] Leni Hamlin Neutrophils/100 WBC (Bld) 75.8 % Critically high 43.0-75.0 [facility] Comment on above: Performed By: #### B MP, BNP #### [facility] [address] [address] [address] Leni Hamlin Platelet mean volume (Bld) [Entitic vol] 10.6 fL Normal 9.5-13.5 [facility] Comment on above: Performed By: #### B MP, BNP #### [facility] [address] [place] [address] Dr. Leni Hamlin PLT 143 103/ul Critically low 150-450 [facility] Comment on above: Performed By: #### B MP, BNP #### [facility] [address] [place] [address] Dr. Leni Hamlin RBC 5.24 106/ul Normal 4.70-6.10 [facility] Comment on above: Performed By: #### B MP, BNP #### [facility] [address] [place] [address] Dr. Leni Hamlin WBC 13.7 103/ul Critically high 4.0-11.0 [facility] Comment on above: Performed By: #### B MP, BNP #### [facility] [address] [place] [address] Dr. Leni Hamlin CRPon 10-03-2022 CRP 7.6 mg/dL Critically high <=1.0 [facility] Comment on above: Performed By: #### C MP, CRP #### [facility] [address] [place] [address] Dr. Leni Hamlin PROF 14(COMP METB)on 022 Albumin [Mass/Vol] 2.5 g/dL Critically low 3.4-5.0 [facility] Comment on above: Performed By: #### C MP, CRP #### [facility] [address] [address] [address] Leni Hamlin Albumin/Globulin [Mass ratio] 0.7 {ratio} Normal [facility] Comment on above: Performed By: #### C MP, CRP #### [facility] [address] [address] [address] Leni Hamlin ALP [Catalytic activity/Vol] 54 U/L Normal 46-116 [facility] Comment on above: Performed By: #### C MP, CRP #### [facility] [address] [address] [address] Leni Hamlin ALT [Catalytic activity/Vol] 11 U/L Critically low 16-63 [facility] Comment on above: Performed By: #### C MP, CRP #### [facility] [address] [address] [address] Leni Hamlin Anion gap [Moles/Vol] 8.8 mmol/L Normal [facility] Comment on above: Performed By: #### C MP, CRP #### [facility] [address] [address] [address] Leni Hamlin AST [Catalytic activity/Vol] 9 U/L Critically low 15-37 [facility] Comment on above: Performed By: #### C MP, CRP #### [facility] [address] [address] [address] Leni Hamlin Bilirubin [Mass/Vol] 0.3 mg/dL Normal 0.2-1.0 [facility] Comment on above: Performed By: #### C MP, CRP #### [facility] [address] [address] [address] Leni Hamlin Calcium [Mass/Vol] 8.6 mg/dL Normal 8.5-10.1 [facility] Comment on above: Performed By: #### C MP, CRP #### [facility] [address] [address] [address] Leni Hamlin Chloride [Moles/Vol] 103 mmol/L Normal 98-107 [facility] Comment on above: Performed By: #### C MP, CRP #### [facility] [address] [address] [address] Leni Hamlin CO2 [Moles/Vol] 29.2 mmol/L Normal 21.0-32.0 [facility] Comment on above: Performed By: #### C MP, CRP #### [facility] [address] [address] [address] Leni Hamlin Creatinine [Mass/Vol] 1.20 mg/dL Normal 0.70-1.30 [facility] Comment on above: Performed By: #### C MP, CRP #### [facility] [address] [address] [address] Leni Hamlin EGFR-AF KOSOVAN >60 Normal >=60 [facility] Comment on above: Performed By: #### C MP, CRP #### [facility] [address] [address] [address] Leni Hamlin EGFR-NON AF KOSOVAN 59 mL/min/1.73m2 Critically low >=60 [facility] Comment on above: Performed By: #### C MP, CRP #### [facility] [address] [address] [address] Leni Hamlin Globulin (S) [Mass/Vol] 3.4 g/dL Normal [facility] Comment on above: Performed By: #### C MP, CRP #### [facility] [address] [address] [address] Leni Hamlin Glucose [Mass/Vol] 108 mg/dL Critically high 74-106 T [facility] Comment on above: Performed By: #### C MP, CRP #### [facility] [address] [address] [address] Leni Hamlin Potassium [Moles/Vol] 4.0 mmol/L Normal 3.5-5.1 [facility] Comment on above: Performed By: #### C MP, CRP #### [facility] [address] [address] [address] Leni Hamlin Protein [Mass/Vol] 5.9 g/dL Critically low 6.4-8.2 [facility] Comment on above: Performed By: #### C MP, CRP #### [facility] [address] [place] [address] Dr. Leni Hamlin Sodium [Moles/Vol] 137 mmol/L Normal 136-145 [facility] Comment on above: Performed By: #### C MP, CRP #### [facility] [address] [place] [address] Dr. Leni Hamlin Urea nitrogen [Mass/Vol] 15.0 mg/dL Normal 7.0-18.0 [facility] Comment on above: Performed By: #### C MP, CRP #### [facility] [address] [place] [address] Dr. Leni Hamlin Urea nitrogen/Creatinine [Mass ratio] 12.5 mg/mg Normal [facility] Comment on above: Performed By: #### C MP, CRP #### [facility] [address] [place] [address] Dr. eLni Hamlin CBC AUTO DIFFon 10-02-2022 BASO # 0.1 103/ul Normal 0.0-0.1 [facility] Comment on above: Performed By: #### C MP, CRP #### [facility] [address] [place] [address] Dr. Leni Hamlin Basophils/100 WBC (Bld) 0.5 % Normal 0.2-2.0 [facility] Comment on above: Performed By: #### C MP, CRP #### [facility] [address] [place] [address] Dr. Leni Hamlin EO # 0.2 103/ul Normal 0.0-0.7 [facility] Comment on above: Performed By: #### C MP, CRP #### [facility] [address] [place] [address] Dr. Leni Hamlin Eosinophils/100 WBC (Bld) 1.6 % Normal 0.9-7.0 [facility] Comment on above: Performed By: #### C MP, CRP #### [facility] [address] [place] [address] Dr. Leni Hamlin Erythrocyte distribution width (RBC) [Ratio] 13.4 % Normal 11.0-15.0 [facility] Comment on above: Performed By: #### C MP, CRP #### [facility] [address] [place] [address] Dr. Leni Hamlin Hematocrit (Bld) [Volume fraction] 46.6 % Normal 42.0-54.0 [facility] Comment on above: Performed By: #### C MP, CRP #### [facility] [address] [place] [address] Dr. Leni Hamlin Hemoglobin (Bld) [Mass/Vol] 15.1 g/dL Normal 14.0-18.0 [facility] Comment on above: Performed By: #### C MP, CRP #### [facility] [address] [place] [address] Dr. Leni Hamlin IG # 0.21 10e3/ul Critically high 0.00-0.03 [facility] Comment on above: Performed By: #### C MP, CRP #### [facility] [address] [place] [address] Dr. Leni Hamlin IG % 1.4 % Critically high 0.0-0.5 [facility] Comment on above: Performed By: #### C MP, CRP #### [facility] [address] [place] [address] Dr. Leni Hamlin LYMPH # 1.9 103/ul Normal 1.2-3.8 [facility] Comment on above: Performed By: #### C MP, CRP #### [facility] [address] [place] [address] Dr. Leni Hamlin Lymphocytes/100 WBC (Bld) 12.4 % Critically low 20.5-60.0 [facility] Comment on above: Performed By: #### C MP, CRP #### [facility] [address] [place] [address] Dr. Leni Hamlin MANUAL DIFF REQ NO Normal [facility] Comment on above: Performed By: #### C MP, CRP #### [facility] [address] [place] [address] Dr. Leni Hamlin MCH (RBC) [Entitic mass] 28.9 pg Normal 25.9-34.0 [facility] Comment on above: Performed By: #### C MP, CRP #### [facility] [address] [place] [address] Dr. Leni Hamlin MCHC (RBC) [Mass/Vol] 32.4 g/dL Normal 29.9-35.2 [facility] Comment on above: Performed By: #### C MP, CRP #### [facility] [address] [place] [address] Dr. Leni Hamlin MCV (RBC) [Entitic vol] 89.3 fL Normal 80.0-94.0 [facility] Comment on above: Performed By: #### C MP, CRP #### [facility] [address] [place] [address] Dr. Leni Hamlin MONO # 1.1 103/ul Critically high 0.3-0.8 [facility] Comment on above: Performed By: #### C MP, CRP #### [facility] [address] [place] [address] Dr. Leni Hamlin Monocytes/100 WBC (Bld) 6.9 % Normal 1.7-12.0 [facility] Comment on above: Performed By: #### C MP, CRP #### [facility] [address] [place] [address] Dr. Leni Hamlin NEUT # 11.8 103/ul Critically high 1.4-6.5 [facility] Comment on above: Performed By: #### C MP, CRP #### [facility] [address] [place] [address] Dr. Leni Hamlin Neutrophils/100 WBC (Bld) 77.2 % Critically high 43.0-75.0 [facility] Comment on above: Performed By: #### C MP, CRP #### [facility] [address] [place] [address] Dr. Leni Hamlin Platelet mean volume (Bld) [Entitic vol] 10.5 fL Normal 9.5-13.5 [facility] Comment on above: Performed By: #### C MP, CRP #### [facility] [address] [place] [address] Dr. Leni Hamlin PLT 138 103/ul Critically low 150-450 [facility] Comment on above: Performed By: #### C MP, CRP #### [facility] [address] [place] [address] Dr. Leni Hamlin RBC 5.22 106/ul Normal 4.70-6.10 [facility] Comment on above: Performed By: #### C MP, CRP #### [facility] [address] [place] [address] Dr. Leni Hamlin WBC 15.3 103/ul Critically high 4.0-11.0 [facility] Comment on above: Performed By: #### C MP, CRP #### [facility] [address] [place] [address] Dr. Lein Hamlin CRPon 10-02-2022 CRP 13.7 mg/dL Critically high <=1.0 [facility] Comment on above: Performed By: #### C VDAGS #### [facility] [address] [place] [address] Dr. Leni Hamlin PROF 14(COMP METB)on 022 Albumin [Mass/Vol] 2.5 g/dL Critically low 3.4-5.0 [facility] Comment on above: Performed By: #### C VDAGS #### [facility] [address] [place] [address] Dr. Leni Hamlin Albumin/Globulin [Mass ratio] 0.8 {ratio} Normal [facility] Comment on above: Performed By: #### C VDAGS #### [facility] [address] [place] [address] Dr. Leni Hamlin ALP [Catalytic activity/Vol] 54 U/L Normal 46-116 [facility] Comment on above: Performed By: #### C VDAGS #### [facility] [address] [place] [address] Dr. Leni Hamlin ALT [Catalytic activity/Vol] 13 U/L Critically low 16-63 [facility] Comment on above: Performed By: #### C VDAGS #### [facility] [address] [place] [address] Dr. Leni Hamlin Anion gap [Moles/Vol] 10.6 mmol/L Normal [facility] Comment on above: Performed By: #### C VDAGS #### [facility] [address] [address] [address] Leni Hamlin AST [Catalytic activity/Vol] 9 U/L Critically low 15-37 [facility] Comment on above: Performed By: #### C VDAGS #### [facility] [address] [address] [address] Leni Hamlin Bilirubin [Mass/Vol] 0.3 mg/dL Normal 0.2-1.0 [facility] Comment on above: Performed By: #### C VDAGS #### [facility] [address] [place] [address] Dr. Leni Hamlin Calcium [Mass/Vol] 8.5 mg/dL Normal 8.5-10.1 [facility] Comment on above: Performed By: #### C VDAGS #### [facility] [address] [place] [address] Dr. Leni Hamlin Chloride [Moles/Vol] 104 mmol/L Normal 98-107 [facility] Comment on above: Performed By: #### C VDAGS #### [facility] [address] [place] [address] Dr. Leni Hamlin CO2 [Moles/Vol] 27.5 mmol/L Normal 21.0-32.0 [facility] Comment on above: Performed By: #### C VDAGS #### [facility] [address] [place] [address] Dr. Leni Hamlin Creatinine [Mass/Vol] 1.26 mg/dL Normal 0.70-1.30 [facility] Comment on above: Performed By: #### C VDAGS #### [facility] [address] [place] [address] Dr. Leni Hamlin EGFR-AF KOSOVAN >60 Normal >=60 [facility] Comment on above: Performed By: #### C VDAGS #### [facility] [address] [place] [address] Dr. Leni Hamlin EGFR-NON AF KOSOVAN 56 mL/min/1.73m2 Critically low >=60 [facility] Comment on above: Performed By: #### C VDAGS #### [facility] [address] [address] [address] Leni Hamlin Globulin (S) [Mass/Vol] 3.3 g/dL Normal [facility] Comment on above: Performed By: #### C VDAGS #### [facility] [address] [address] [address] Leni Hamlin Glucose [Mass/Vol] 122 mg/dL Critically high 74-106 T [facility] Comment on above: Performed By: #### C VDAGS #### [facility] [address] [place] [address] Dr. Leni Hamlin Potassium [Moles/Vol] 4.1 mmol/L Normal 3.5-5.1 [facility] Comment on above: Performed By: #### C VDAGS #### [facility] [address] [place] [address] Dr. Leni Hamlin Protein [Mass/Vol] 5.8 g/dL Critically low 6.4-8.2 Th [facility] Comment on above: Performed By: #### C VDAGS #### [facility] [address] [place] [address] Dr. Leni Hamlin Sodium [Moles/Vol] 138 mmol/L Normal 136-145 [facility] Comment on above: Performed By: #### C VDAGS #### [facility] [address] [place] [address] Dr. Leni Hamlin Urea nitrogen [Mass/Vol] 20.0 mg/dL Critically high 7.0-18.0 [facility] Comment on above: Performed By: #### C VDAGS #### [facility] [address] [place] [address] Dr. Leni Hamlin Urea nitrogen/Creatinine [Mass ratio] 15.9 mg/mg Normal [facility] Comment on above: Performed By: #### C VDAGS #### [facility] [address] [place] [address] Dr. Leni Hamlin CBC AUTO DIFFon 10-01-2022 BASO # 0.1 103/ul Normal 0.0-0.1 [facility] Comment on above: Performed By: #### C MP, CRP #### [facility] [address] [place] [address] Dr. Leni Hamiln Basophils/100 WBC (Bld) 0.3 % Normal 0.2-2.0 [facility] Comment on above: Performed By: #### C MP, CRP #### [facility] [address] [place] [address] Dr. Leni Hamlin EO # 0.2 103/ul Normal 0.0-0.7 [facility] Comment on above: Performed By: #### C MP, CRP #### [facility] [address] [place] [address] Dr. Leni Hamlin Eosinophils/100 WBC (Bld) 0.8 % Critically low 0.9-7.0 [facility] Comment on above: Performed By: #### C MP, CRP #### [facility] [address] [place] [address] Dr. Leni Hamlin Erythrocyte distribution width (RBC) [Ratio] 13.6 % Normal 11.0-15.0 [facility] Comment on above: Performed By: #### C MP, CRP #### [facility] [address] [place] [address] Dr. Leni Hamlin Hematocrit (Bld) [Volume fraction] 49.0 % Normal 42.0-54.0 [facility] Comment on above: Performed By: #### C MP, CRP #### [facility] [address] [place] [address] Dr. Leni Hamlin Hemoglobin (Bld) [Mass/Vol] 16.0 g/dL Normal 14.0-18.0 [facility] Comment on above: Performed By: #### C MP, CRP #### [facility] [address] [place] [address] Dr. Leni Hamlin IG # 0.24 10e3/ul Critically high 0.00-0.03 [facility] Comment on above: Performed By: #### C MP, CRP #### [facility] [address] [address] [address] Leni Hamlin IG % 1.2 % Critically high 0.0-0.5 [facility] Comment on above: Performed By: #### C MP, CRP #### [facility] [address] [address] [address] Leni Hamlin LYMPH # 1.6 103/ul Normal 1.2-3.8 [facility] Comment on above: Performed By: #### C MP, CRP #### [facility] [address] [address] [address] Leni Hamlin Lymphocytes/100 WBC (Bld) 8.0 % Critically low 20.5-60.0 [facility] Comment on above: Performed By: #### C MP, CRP #### [facility] [address] [address] [address] Leni Hamlin MANUAL DIFF REQ NO Normal [facility] Comment on above: Performed By: #### C MP, CRP #### [facility] [address] [address] [address] Leni Hamlin MCH (RBC) [Entitic mass] 29.4 pg Normal 25.9-34.0 [facility] Comment on above: Performed By: #### C MP, CRP #### [facility] [address] [address] [address] Leni Hamlin MCHC (RBC) [Mass/Vol] 32.7 g/dL Normal 29.9-35.2 [facility] Comment on above: Performed By: #### C MP, CRP #### [facility] [address] [address] [address] Leni Hamlin MCV (RBC) [Entitic vol] 90.1 fL Normal 80.0-94.0 [facility] Comment on above: Performed By: #### C MP, CRP #### [facility] [address] [address] [address] Leni Hamlin MONO # 1.0 103/ul Critically high 0.3-0.8 [facility] Comment on above: Performed By: #### C MP, CRP #### [facility] [address] [address] [address] Leni Hamlin Monocytes/100 WBC (Bld) 5.1 % Normal 1.7-12.0 [facility] Comment on above: Performed By: #### C MP, CRP #### [facility] [address] [address] [address] Leni Hamlin NEUT # 16.8 103/ul Critically high 1.4-6.5 [facility] Comment on above: Performed By: #### C MP, CRP #### [facility] [address] [place] [address] Dr. Leni Hamlin Neutrophils/100 WBC (Bld) 84.6 % Critically high 43.0-75.0 [facility] Comment on above: Performed By: #### C MP, CRP #### [facility] [address] [place] [address] Dr. Leni Hamlin Platelet mean volume (Bld) [Entitic vol] 9.7 fL Normal 9.5-13.5 [facility] Comment on above: Performed By: #### C MP, CRP #### [facility] [address] [place] [address] Dr. Leni Hamlin PLT 138 103/ul Critically low 150-450 [facility] Comment on above: Performed By: #### C MP, CRP #### [facility] [address] [place] [address] Dr. Leni Hamlin RBC 5.44 106/ul Normal 4.70-6.10 [facility] Comment on above: Performed By: #### C MP, CRP #### [facility] [address] [place] [address] Dr. Leni Hamlin WBC 19.8 103/ul Critically high 4.0-11.0 [facility] Comment on above: Performed By: #### C MP, CRP #### [facility] [address] [place] [address] Dr. Leni Hamlin BASO # 0.1 103/ul Normal 0.0-0.1 [facility] Comment on above: Performed By: #### B MP, BNP #### [facility] [address] [place] [address] Dr. Leni Hamlin Basophils/100 WBC (Bld) 0.3 % Normal 0.2-2.0 [facility] Comment on above: Performed By: #### B MP, BNP #### [facility] [address] [place] [address] Dr. Leni Hamlin EO # 0.1 103/ul Normal 0.0-0.7 [facility] Comment on above: Performed By: #### B MP, BNP #### [facility] [address] [place] [address] Dr. Leni Hamlin Eosinophils/100 WBC (Bld) 0.7 % Critically low 0.9-7.0 [facility] Comment on above: Performed By: #### B MP, BNP #### [facility] [address] [place] [address] Dr. Leni Hamlin Erythrocyte distribution width (RBC) [Ratio] 13.6 % Normal 11.0-15.0 [facility] Comment on above: Performed By: #### B MP, BNP #### [facility] [address] [place] [address] Dr. Leni Hamlin Hematocrit (Bld) [Volume fraction] 46.9 % Normal 42.0-54.0 [facility] Comment on above: Performed By: #### B MP, BNP #### [facility] [address] [place] [address] Dr. Leni Hamlin Hemoglobin (Bld) [Mass/Vol] 15.5 g/dL Normal 14.0-18.0 [facility] Comment on above: Performed By: #### B MP, BNP #### [facility] [address] [place] [address] Dr. Leni Hamlin IG # 0.16 10e3/ul Critically high 0.00-0.03 [facility] Comment on above: Performed By: #### B MP, BNP #### [facility] [address] [place] [address] Dr. Leni Hamlin IG % 0.9 % Critically high 0.0-0.5 [facility] Comment on above: Performed By: #### B MP, BNP #### [facility] [address] [place] [address] Dr. Leni Hamlin LYMPH # 1.8 103/ul Normal 1.2-3.8 The [facility] Comment on above: Performed By: #### B MP, BNP #### [facility] [address] [place] [address] Dr. Leni Hamlin Lymphocytes/100 WBC (Bld) 9.7 % Critically low 20.5-60.0 [facility] Comment on above: Performed By: #### B MP, BNP #### [facility] [address] [place] [address] Dr. Leni Hamlin MANUAL DIFF REQ NO Normal [facility] Comment on above: Performed By: #### B MP, BNP #### [facility] [address] [place] [address] Dr. Leni Hamlin MCH (RBC) [Entitic mass] 29.2 pg Normal 25.9-34.0 [facility] Comment on above: Performed By: #### B MP, BNP #### [facility] [address] [place] [address] Dr. Leni Hamlin MCHC (RBC) [Mass/Vol] 33.0 g/dL Normal 29.9-35.2 [facility] Comment on above: Performed By: #### B MP, BNP #### [facility] [address] [place] [address] Dr. Leni Hamlin MCV (RBC) [Entitic vol] 88.3 fL Normal 80.0-94.0 [facility] Comment on above: Performed By: #### B MP, BNP #### [facility] [address] [place] [address] Dr. Leni Hamlin MONO # 1.4 103/ul Critically high 0.3-0.8 [facility] Comment on above: Performed By: #### B MP, BNP #### [facility] [address] [place] [address] Dr. Leni Hamlin Monocytes/100 WBC (Bld) 7.3 % Normal 1.7-12.0 The [facility] Comment on above: Performed By: #### B MP, BNP #### [facility] [address] [place] [address] Dr. Leni Hamlin NEUT # 15.1 103/ul Critically high 1.4-6.5 [facility] Comment on above: Performed By: #### B MP, BNP #### [facility] [address] [place] [address] Dr. Leni Hamlin Neutrophils/100 WBC (Bld) 81.1 % Critically high 43.0-75.0 [facility] Comment on above: Performed By: #### B MP, BNP #### [facility] [address] [place] [address] Dr. Leni Hamlin Platelet mean volume (Bld) [Entitic vol] 10.0 fL Normal 9.5-13.5 [facility] Comment on above: Performed By: #### B MP, BNP #### [facility] [address] [place] [address] Dr. Leni Hamlin PLT 141 103/ul Critically low 150-450 [facility] Comment on above: Performed By: #### B MP, BNP #### [facility] [address] [place] [address] Dr. Leni Hamlin RBC 5.31 106/ul Normal 4.70-6.10 [facility] Comment on above: Performed By: #### B MP, BNP #### [facility] [address] [place] [address] Dr. Leni Hamlin WBC 18.7 103/ul Critically high 4.0-11.0 [facility] Comment on above: Performed By: #### B MP, BNP #### [facility] [address] [place] [address] Dr. Leni Hamlin CRPon 10-01-2022 CRP 16.0 mg/dL Critically high <=1.0 [facility] Comment on above: Performed By: #### C VDAGS #### [facility] [address] [address] [address] Leni Hamlin PROF 14(COMP METB)on 022 Albumin [Mass/Vol] 2.6 g/dL Critically low 3.4-5.0 [facility] Comment on above: Performed By: #### C MP, CRP #### [facility] [address] [place] [address] Dr. Leni Hamlin Albumin/Globulin [Mass ratio] 0.8 {ratio} Normal [facility] Comment on above: Performed By: #### C MP, CRP #### [facility] [address] [place] [address] Dr. Leni Hamlin ALP [Catalytic activity/Vol] 44 U/L Critically low 46-116 [facility] Comment on above: Performed By: #### C MP, CRP #### [facility] [address] [place] [address] Dr. Leni Hamlin ALT [Catalytic activity/Vol] 12 U/L Critically low 16-63 [facility] Comment on above: Performed By: #### C MP, CRP #### [facility] [address] [place] [address] Dr. Leni Hamlin Anion gap [Moles/Vol] 8.7 mmol/L Normal [facility] Comment on above: Performed By: #### C MP, CRP #### [facility] [address] [place] [address] Dr. Leni Hamlin AST [Catalytic activity/Vol] 10 U/L Critically low 15-37 [facility] Comment on above: Performed By: #### C MP, CRP #### [facility] [address] [place] [address] Dr. Leni Hamlin Bilirubin [Mass/Vol] 0.8 mg/dL Normal 0.2-1.0 [facility] Comment on above: Performed By: #### C MP, CRP #### [facility] [address] [place] [address] Dr. Leni Hamlin Calcium [Mass/Vol] 8.3 mg/dL Critically low 8.5-10.1 Th [facility] Comment on above: Performed By: #### C MP, CRP #### [facility] [address] [address] [address] Leni Hamlin Chloride [Moles/Vol] 103 mmol/L Normal 98-107 [facility] Comment on above: Performed By: #### C MP, CRP #### [facility] [address] [address] [address] Leni Hamlin CO2 [Moles/Vol] 28.2 mmol/L Normal 21.0-32.0 [facility] Comment on above: Performed By: #### C MP, CRP #### [facility] [address] [address] [address] Leni Hamlin Creatinine [Mass/Vol] 1.24 mg/dL Normal 0.70-1.30 [facility] Comment on above: Performed By: #### C MP, CRP #### [facility] [address] [place] [address] Dr. Leni Hamlin EGFR-AF KOSOVAN >60 Normal >=60 [facility] Comment on above: Performed By: #### C MP, CRP #### [facility] [address] [address] [address] Leni Hamlin EGFR-NON AF KOSOVAN 57 mL/min/1.73m2 Critically low >=60 [facility] Comment on above: Performed By: #### C MP, CRP #### [facility] [address] [place] [address] Dr. Leni Hamlin Globulin (S) [Mass/Vol] 3.2 g/dL Normal [facility] Comment on above: Performed By: #### C MP, CRP #### [facility] [address] [address] [address] Leni Hamlin Glucose [Mass/Vol] 111 mg/dL Critically high 74-106 T [facility] Comment on above: Performed By: #### C MP, CRP #### [facility] [address] [address] [address] Leni Hamlin Potassium [Moles/Vol] 3.9 mmol/L Normal 3.5-5.1 The [facility] Comment on above: Performed By: #### C MP, CRP #### [facility] [address] [place] [address] Dr. Leni Hamlin Protein [Mass/Vol] 5.8 g/dL Critically low 6.4-8.2 Th e [facility] Comment on above: Performed By: #### C MP, CRP #### [facility] [address] [place] [address] Dr. Leni Hamlin Sodium [Moles/Vol] 136 mmol/L Normal 136-145 [facility] Comment on above: Performed By: #### C MP, CRP #### [facility] [address] [place] [address] Dr. Leni Hamlin Urea nitrogen [Mass/Vol] 17.0 mg/dL Normal 7.0-18.0 [facility] Comment on above: Performed By: #### C MP, CRP #### [facility] [address] [place] [address] Dr. Leni Hamlin Urea nitrogen/Creatinine [Mass ratio] 13.7 mg/mg Normal [facility] Comment on above: Performed By: #### C MP, CRP #### [facility] [address] [place] [address] Dr. Leni Duvall. DIFF PCRon 09-30-2022 C. DIFFICILE PCR Positive Critically abnormal NEGATIVE [facility] Comment on above: Performed By: #### C VDAGS #### [facility] [address] [place] [address] Dr. Leni Hamlin CBC AUTO DIFFon 09-30-2022 BASO # 0.0 103/ul Normal 0.0-0.1 [facility] Comment on above: Performed By: #### C BC #### [facility] [address] [place] [address] Dr. Leni Hamlin Basophils/100 WBC (Bld) 0.3 % Normal 0.2-2.0 [facility] Comment on above: Performed By: #### C BC #### [facility] [address] [place] [address] Dr. Leni Hamlin EO # 0.1 103/ul Normal 0.0-0.7 [facility] Comment on above: Performed By: #### C BC #### [facility] [address] [address] [address] Leni Hamlin Eosinophils/100 WBC (Bld) 0.8 % Critically low 0.9-7.0 [facility] Comment on above: Performed By: #### C BC #### [facility] [address] [place] [address] Dr. Leni Hamlin Erythrocyte distribution width (RBC) [Ratio] 13.4 % Normal 11.0-15.0 [facility] Comment on above: Performed By: #### C BC #### [facility] [address] [place] [address] Dr. Leni Hamlin Hematocrit (Bld) [Volume fraction] 50.4 % Normal 42.0-54.0 [facility] Comment on above: Performed By: #### C BC #### [facility] [address] [place] [address] Dr. Leni Hamlin Hemoglobin (Bld) [Mass/Vol] 16.2 g/dL Normal 14.0-18.0 [facility] Comment on above: Performed By: #### C BC #### [facility] [address] [place] [address] Dr. Leni Hamlin IG # 0.13 10e3/ul Critically high 0.00-0.03 [facility] Comment on above: Performed By: #### C BC #### [facility] [address] [place] [address] Dr. Leni Hamlin IG % 0.9 % Critically high 0.0-0.5 [facility] Comment on above: Performed By: #### C BC #### [facility] [address] [place] [address] Dr. Leni Hamlin LYMPH # 1.7 103/ul Normal 1.2-3.8 The [facility] Comment on above: Performed By: #### C BC #### [facility] [address] [place] [address] Dr. Leni Hamlin Lymphocytes/100 WBC (Bld) 11.1 % Critically low 20.5-60.0 [facility] Comment on above: Performed By: #### C BC #### [facility] [address] [place] [address] Dr. Leni Hamlin MANUAL DIFF REQ NO Normal [facility] Comment on above: Performed By: #### C BC #### [facility] [address] [place] [address] Dr. Leni Hamlin MCH (RBC) [Entitic mass] 28.8 pg Normal 25.9-34.0 [facility] Comment on above: Performed By: #### C BC #### [facility] [address] [place] [address] Dr. Leni Hamlin MCHC (RBC) [Mass/Vol] 32.1 g/dL Normal 29.9-35.2 The [facility] Comment on above: Performed By: #### C BC #### [facility] [address] [place] [address] Dr. Leni Hamlin MCV (RBC) [Entitic vol] 89.7 fL Normal 80.0-94.0 [facility] Comment on above: Performed By: #### C BC #### [facility] [address] [place] [address] Dr. Leni Hamlin MONO # 1.5 103/ul Critically high 0.3-0.8 [facility] Comment on above: Performed By: #### C BC #### [facility] [address] [place] [address] Dr. Leni Hamlin Monocytes/100 WBC (Bld) 9.8 % Normal 1.7-12.0 [facility] Comment on above: Performed By: #### C BC #### [facility] [address] [place] [address] Dr. eLni Hamlin NEUT # 11.7 103/ul Critically high 1.4-6.5 [facility] Comment on above: Performed By: #### C BC #### [facility] [address] [place] [address] Dr. Leni Hamlin Neutrophils/100 WBC (Bld) 77.1 % Critically high 43.0-75.0 [facility] Comment on above: Performed By: #### C BC #### [facility] [address] [address] [address] Leni Halmin Platelet mean volume (Bld) [Entitic vol] 9.9 fL Normal 9.5-13.5 [facility] Comment on above: Performed By: #### C BC #### [facility] [address] [place] [address] Dr. Leni Hamlin PLT 156 103/ul Normal 150-450 [facility] Comment on above: Performed By: #### C BC #### [facility] [address] [address] [address] Leni Hamlin RBC 5.62 106/ul Normal 4.70-6.10 [facility] Comment on above: Performed By: #### C BC #### [facility] [address] [place] [address] Dr. Leni Hamlin WBC 15.2 103/ul Critically high 4.0-11.0 [facility] Comment on above: Performed By: #### C BC #### [facility] [address] [place] [address] Dr. Leni Hamlin CRPon 09-30-2022 CRP 7.6 mg/dL Critically high <=1.0 [facility] Comment on above: Performed By: #### C RP #### [facility] [address] [place] [address] Dr. Leni Hamlin PROF 14(COMP METB)on 022 Albumin [Mass/Vol] 2.8 g/dL Critically low 3.4-5.0 [facility] Comment on above: Performed By: #### C RP #### [facility] [address] [place] [address] Dr. Leni Hamlin Albumin/Globulin [Mass ratio] 0.9 {ratio} Normal [facility] Comment on above: Performed By: #### C RP #### [facility] [address] [place] [address] Dr. Leni Hamlin ALP [Catalytic activity/Vol] 45 U/L Critically low 46-116 [facility] Comment on above: Performed By: #### C RP #### [facility] [address] [address] [address] Leni Hamlin ALT [Catalytic activity/Vol] 17 U/L Normal 16-63 [facility] Comment on above: Performed By: #### C RP #### [facility] [address] [address] [address] Leni Hamlin Anion gap [Moles/Vol] 8.4 mmol/L Normal [facility] Comment on above: Performed By: #### C RP #### [facility] [address] [address] [address] Leni Hamlin AST [Catalytic activity/Vol] 9 U/L Critically low 15-37 [facility] Comment on above: Performed By: #### C RP #### [facility] [address] [place] [address] Dr. Leni Hamlin Bilirubin [Mass/Vol] 0.6 mg/dL Normal 0.2-1.0 [facility] Comment on above: Performed By: #### C RP #### [facility] [address] [place] [address] Dr. Leni Hamlin Calcium [Mass/Vol] 8.6 mg/dL Normal 8.5-10.1 [facility] Comment on above: Performed By: #### C RP #### [facility] [address] [place] [address] Dr. Leni Hamlin Chloride [Moles/Vol] 104 mmol/L Normal 98-107 [facility] Comment on above: Performed By: #### C RP #### [facility] [address] [address] [address] Leni Hamlin CO2 [Moles/Vol] 29.6 mmol/L Normal 21.0-32.0 [facility] Comment on above: Performed By: #### C RP #### [facility] [address] [place] [address] Dr. Leni Hamlin Creatinine [Mass/Vol] 1.23 mg/dL Normal 0.70-1.30 [facility] Comment on above: Performed By: #### C RP #### [facility] [address] [address] Dr. Leni Hamlin EGFR-AF KOSOVAN >60 Normal >=60 [facility] Comment on above: Performed By: #### C RP #### [facility] [address] [address] [address] Leni Hamlin EGFR-NON AF KOSOVAN 58 mL/min/1.73m2 Critically low >=60 [facility] Comment on above: Performed By: #### C RP #### [facility] [address] [address] [address] Leni Hamlin Globulin (S) [Mass/Vol] 3.0 g/dL Normal [facility] Comment on above: Performed By: #### C RP #### [facility] [address] [address] [address] Leni Hamlin Glucose [Mass/Vol] 113 mg/dL Critically high 74-106 [facility] Comment on above: Performed By: #### C RP #### [facility] [address] [address] [address] Leni Hamlin Potassium [Moles/Vol] 4.0 mmol/L Normal 3.5-5.1 [facility] Comment on above: Performed By: #### C RP #### [facility] [address] [place] [address] Dr. Leni Hamlin Protein [Mass/Vol] 5.8 g/dL Critically low 6.4-8.2 Th [facility] Comment on above: Performed By: #### C RP #### [facility] [address] [address] [address] Leni Hamlin Sodium [Moles/Vol] 138 mmol/L Normal 136-145 [facility] Comment on above: Performed By: #### C RP #### [facility] [address] [address] [address] Leni Hamlin Urea nitrogen [Mass/Vol] 17.0 mg/dL Normal 7.0-18.0 [facility] Comment on above: Performed By: #### C RP #### [facility] [address] [address] [address] Leni Hamlin Urea nitrogen/Creatinine [Mass ratio] 13.8 mg/mg Normal [facility] Comment on above: Performed By: #### C RP #### [facility] [address] [place] [address] Dr. Leni Hamlin CBC AUTO DIFFon 09-29-2022 BASO # 0.1 103/ul Normal 0.0-0.1 [facility] Comment on above: Performed By: #### C VDAGS #### [facility] [address] [place] [address] Dr. Leni Hamlin Basophils/100 WBC (Bld) 0.4 % Normal 0.2-2.0 The [facility] Comment on above: Performed By: #### C VDAGS #### [facility] [address] [place] [address] Dr. Leni Hamlin EO # 0.1 103/ul Normal 0.0-0.7 [facility] Comment on above: Performed By: #### C VDAGS #### [facility] [address] [place] [address] Dr. Leni Hamlin Eosinophils/100 WBC (Bld) 0.9 % Normal 0.9-7.0 The [facility] Comment on above: Performed By: #### C VDAGS #### [facility] [address] [place] [address] Dr. Leni Hamlin Erythrocyte distribution width (RBC) [Ratio] 13.2 % Normal 11.0-15.0 [facility] Comment on above: Performed By: #### C VDAGS #### [facility] [address] [place] [address] Dr. Leni Hamlin Hematocrit (Bld) [Volume fraction] 53.1 % Normal 42.0-54.0 The [facility] Comment on above: Performed By: #### C VDAGS #### [facility] [address] [place] [address] Dr. Leni Hamlin Hemoglobin (Bld) [Mass/Vol] 17.3 g/dL Normal 14.0-18.0 The [facility] Comment on above: Performed By: #### C VDAGS #### [facility] [address] [address] [address] Leni Hamlin IG # 0.30 10e3/ul Critically high 0.00-0.03 [facility] Comment on above: Performed By: #### C VDAGS #### [facility] [address] [address] [address] Leni Hamlin IG % 2.2 % Critically high 0.0-0.5 [facility] Comment on above: Performed By: #### C VDAGS #### [facility] [address] [address] [address] Leni Hamlin LYMPH # 1.5 103/ul Normal 1.2-3.8 [facility] Comment on above: Performed By: #### C VDAGS #### [facility] [address] [place] [address] Dr. Leni Hamlin Lymphocytes/100 WBC (Bld) 10.5 % Critically low 20.5-60.0 [facility] Comment on above: Performed By: #### C VDAGS #### [facility] [address] [place] [address] Dr. Leni Hamlin MANUAL DIFF REQ NO Normal [facility] Comment on above: Performed By: #### C VDAGS #### [facility] [address] [place] [address] Dr. Leni Hamlin MCH (RBC) [Entitic mass] 29.0 pg Normal 25.9-34.0 [facility] Comment on above: Performed By: #### C VDAGS #### [facility] [address] [place] [address] Dr. Leni Hamlin MCHC (RBC) [Mass/Vol] 32.6 g/dL Normal 29.9-35.2 [facility] Comment on above: Performed By: #### C VDAGS #### [facility] [address] [place] [address] Dr. Leni Hamlin MCV (RBC) [Entitic vol] 88.9 fL Normal 80.0-94.0 [facility] Comment on above: Performed By: #### C VDAGS #### [facility] [address] [place] [address] Dr. Leni Hamlin MONO # 0.8 103/ul Normal 0.3-0.8 The [facility] Comment on above: Performed By: #### C VDAGS #### [facility] [address] [place] [address] Dr. Leni Hamlin Monocytes/100 WBC (Bld) 6.0 % Normal 1.7-12.0 [facility] Comment on above: Performed By: #### C VDAGS #### [facility] [address] [place] [address] Dr. Leni Hamlin NEUT # 11.2 103/ul Critically high 1.4-6.5 [facility] Comment on above: Performed By: #### C VDAGS #### [facility] [address] [place] [address] Dr. Leni Hamlin Neutrophils/100 WBC (Bld) 80.0 % Critically high 43.0-75.0 [facility] Comment on above: Performed By: #### C VDAGS #### [facility] [address] [place] [address] Dr. Leni Hamlin Platelet mean volume (Bld) [Entitic vol] 9.6 fL Normal 9.5-13.5 The [facility] Comment on above: Performed By: #### C VDAGS #### [facility] [address] [place] [address] Dr. Leni Hamlin PLT 186 103/ul Normal 150-450 The [facility] Comment on above: Performed By: #### C VDAGS #### [facility] [address] [place] [address] Dr. Leni Hamlin RBC 5.97 106/ul Normal 4.70-6.10 The [facility] Comment on above: Performed By: #### C VDAGS #### [facility] [address] [place] [address] Dr. Leni Hamlin WBC 13.9 103/ul Critically high 4.0-11.0 The [facility] Comment on above: Performed By: #### C VDAGS #### [facility] [address] [address] [address] ABD/PELV W CONon [...] Normal The [facility]on [facility]-11 SARS-CoV-2 (COVID-19) RNA VENESSA+probe Ql (Unsp spec) Not detected Normal NOT DETECTED The [facility] Comment on above: Result Comment: When diagnostic [...] for this test is supported by the Clinical Nursing Manager of Health and Human Service's declaration [...] BNP #### [facility] [address] [place] [address] Dr. Leni Hamlin GI PANEL (PCR)on 09-29-2022 Adenovirus F 40/41 Not detected Normal NOT DETECTED [facility] Comment on above: Performed By: #### C RP #### [facility] [address] [place] [address] Dr. Leni Hamlin Astrovirus Not detected Normal NOT DETECTED [facility] Comment on above: Performed By: #### C RP #### [facility] [address] [place] [address] Dr. Leni Duvall. Diff toxin A/B Not detected Normal NOT DETECTED [facility] Comment on above: Performed By: #### C RP #### [facility] [address] [place] [address] Dr. Leni Hamlin Campylobacter Not detected Normal NOT DETECTED [facility] Comment on above: Performed By: #### C RP #### [facility] [address] [place] [address] Dr. Leni Hamlin Cryptosporidium Not detected Normal NOT DETECTED [facility] Comment on above: Performed By: #### C RP #### [facility] [address] [place] [address] Dr. Leni Hamlin Cyclos. Cayetanensis Not detected Normal NOT DETECTED The [facility] Comment on above: Performed By: #### C RP #### [facility] [address] [place] [address] Dr. Leni Hamlin E. Coli O157 Not Applicable Normal Not Applicable The [facility] Comment on above: Performed By: #### C RP #### [facility] [address] [place] [address] Dr. Leni Hamlin E. histolytica Not detected Normal NOT DETECTED The [facility] Comment on above: Performed By: #### C RP #### [facility] [address] [place] [address] Dr. Leni Hamlin EAEC Not detected Normal NOT DETECTED [facility] Comment on above: Performed By: #### C RP #### [facility] [address] [place] [address] Dr. Leni Hamlin EIEC Not detected Normal NOT DETECTED [facility] Comment on above: Performed By: #### C RP #### [facility] [address] [place] [address] Dr. Leni Hamlin EPEC Not detected Normal NOT DETECTED [facility] Comment on above: Performed By: #### C RP #### [facility] [address] [place] [address] Dr. Leni Hamlin ETEC Not detected Normal NOT DETECTED [facility] Comment on above: Performed By: #### C RP #### [facility] [address] [place] [address] Dr. Leni Kleinlijoão Not detected Normal NOT DETECTED [facility] Comment on above: Performed By: #### C RP #### [facility] [address] [place] [address] Dr. Leni TEJEDA CONTROLS PASSED Normal [facility] Comment on above: Performed By: #### C RP #### [facility] [address] [place] [address] Dr. Leni KRISHNAMURTHY HEADER GI PANEL BACTERIA Normal T [facility] Comment on above: Performed By: #### C RP #### [facility] [address] [place] [address] Dr. Leni KAMARA ECOLI GI PANEL DIARRHEAGENIC E.COLI / SHIGELLA Normal [facility] Comment on above: Performed By: #### C RP #### [facility] [address] [place] [address] Dr. Leni KAMARA INFO SEE BELOW [facility] Comment on above: Result Comment: EAEC - Enteroaggregative E. Coli EPEC- Enteropathogenic E. Coli ETEC- Enterotoxigenic E. Coli lt/st STEC- Shigella-like toxin-producing E. Coli stx1/stx2 EIEC- Shigella/Enteroinvasive E. Coli Performed By: #### C RP #### [facility] [address] [place] [address] Dr. Leni KAMARA PARASITES GI PANEL PARASITES Normal The [facility] Comment on above: Performed By: #### C RP #### [facility] [address] [place] [address] Dr. Leni KAMARA VIRUS GI PANEL VIRUSES Normal [facility] Comment on above: Performed By: #### C RP #### [facility] [address] [place] [address] Dr. Leni Hamlin Norovirus GI/GII Not detected Normal NOT DETECTED The [facility] Comment on above: Performed By: #### C RP #### [facility] [address] [place] [address] Dr. Leni Hamlin P. Shigelloides Not detected Normal NOT DETECTED [facility] Comment on above: Performed By: #### C RP #### [facility] [address] [place] [address] Dr. Leni Hamlin Rotavirus A Not detected Normal NOT DETECTED [facility] Comment on above: Performed By: #### C RP #### [facility] [address] [place] [address] Dr. Leni Hamlin Salmonella Not detected Normal NOT DETECTED [facility] Comment on above: Performed By: #### C RP #### [facility] [address] [place] [address] Dr. Leni Hamlin Sapovirus Not detected Normal NOT DETECTED [facility] Comment on above: Performed By: #### C RP #### [facility] [address] [place] [address] Dr. Leni Hamlin STEC Not detected Normal NOT DETECTED [facility] Comment on above: Performed By: #### C RP #### [facility] [address] [place] [address] Dr. Leni Hamlin Vibrio Not detected Normal NOT DETECTED [facility] Comment on above: Performed By: #### C RP #### [facility] [address] [place] [address] Dr. Leni Hamlin Vibrio Cholera Not detected Normal NOT DETECTED [facility] Comment on above: Performed By: #### C RP #### [facility] [address] [address] [address] Leni Hamlin Y. Enterocolitica Not detected Normal NOT DETECTED The [facility] Comment on above: Performed By: #### C RP #### [facility] [address] [address] [address] Leni Hamlin PROF CHEM 8 (BAS METB)on Anion gap [Moles/Vol] 5.8 mmol/L Normal [facility] Comment on above: Performed By: #### C VDAGS #### [facility] [address] [place] [address] Dr. Leni Hamlin Calcium [Mass/Vol] 9.0 mg/dL Normal 8.5-10.1 [facility] Comment on above: Performed By: #### C VDAGS #### [facility] [address] [place] [address] Dr. Leni Hamlin Chloride [Moles/Vol] 103 mmol/L Normal 98-107 [facility] Comment on above: Performed By: #### C VDAGS #### [facility] [address] [place] [address] Dr. Leni Hamlin CO2 [Moles/Vol] 31.7 mmol/L Normal 21.0-32.0 [facility] Comment on above: Performed By: #### C VDAGS #### [facility] [address] [place] [address] Dr. Leni Hamlin Creatinine [Mass/Vol] 1.28 mg/dL Normal 0.70-1.30 [facility] Comment on above: Performed By: #### C VDAGS #### [facility] [address] [place] [address] Dr. Leni Hamlin EGFR-AF KOSOVAN >60 Normal >=60 [facility] Comment on above: Performed By: #### C VDAGS #### [facility] [address] [place] [address] Dr. Leni Hamlin EGFR-NON AF KOSOVAN 55 mL/min/1.73m2 Critically low >=60 [facility] Comment on above: Performed By: #### C VDAGS #### [facility] [address] [address] [address] Leni Hamlin Glucose [Mass/Vol] 130 mg/dL Critically high 74-106 T [facility] Comment on above: Performed By: #### C VDAGS #### [facility] [address] [address] [address] Leni Hamlin Potassium [Moles/Vol] 4.5 mmol/L Normal 3.5-5.1 [facility] Comment on above: Performed By: #### C VDAGS #### [facility] [address] [address] [address] Leni Hamlin Sodium [Moles/Vol] 136 mmol/L Normal 136-145 [facility] Comment on above: Performed By: #### C VDAGS #### [facility] [address] [place] [address] Dr. Leni Hamlin Urea nitrogen [Mass/Vol] 23.0 mg/dL Critically high 7.0-18.0 [facility] Comment on above: Performed By: #### C VDAGS #### [facility] [address] [address] [address] Leni Hamlin Urea nitrogen/Creatinine [Mass ratio] 18.0 mg/mg Normal [facility] Comment on above: Performed By: #### C VDAGS #### [facility] [address] [place] [address] Dr. Leni Hamlin Covid-19 PCR ([facility])on 08-13 SARS-CoV-2 (COVID-19) RNA VENESSA+probe Ql (Unsp spec) Not detected Normal NOT DETECTED The [facility] Comment on above: Result Comment: When diagnostic [...] for this test is supported by the Clinical Nursing Manager of Health and Human Service's declaration [...] CRP #### [facility] [address] [address] [address] Leni Hamlin Covid-19 PCR ([facility])on 05-11 SARS-CoV-2 (COVID-19) RNA VENESSA+probe Ql (Unsp spec) Detected Critically abnormal NOT DETECTED The [facility] Comment on above: Result Comment: This test is not yet approved or cleared by the [place] FDA. When there are no FDA-approved or cleared tests available, and other criteria are met, FDA can make tests available under an emergency access mechanism called an Emergency Use Authorization (EUA). The EUA for this test is supported by the Clinical Nursing Manager of Health and Human Service's (HHS's) [...] RP #### [facility] [address] [address] [address] Leni Hamlin Covid-19 PCR ([facility])on 04-11 SARS-CoV-2 (COVID-19) RNA VENESSA+probe Ql (Unsp spec) Not detected Normal NOT DETECTED The [facility] Comment on above: Result Comment: This test is not yet approved or cleared by the [place] FDA. When there are no FDA-approved or cleared tests available, and other criteria are met, FDA can make tests available under an emergency access mechanism called an Emergency Use Authorization (EUA). The EUA for this test is supported by the Clinical Nursing Manager of Health and Human Service's (HHS's) [...] VDTB #### [facility] [address] [address] [address] Leni Hamlin SYMPTOMATIC COVID-19 ANTIGEN on 04-23-2022 EUA Statement SEE BELOW Normal The [facility] Comment on above: Result Comment: This [...] VDAGS #### [facility] [address] [place], [place] [address] Dr. Leni Hamlin SARS-CoV-2 (COVID-19) RNA VENESSA+probe Ql (Unsp spec) Negative Normal NEGATIVE [facility] Comment on above: Performed By: #### C VDAGS #### [facility] [address] [place], [place] [address] Dr. Leni Hamlin Cardiovascular Lab Reporton 03-22-2022 Cardiovascular Lab Report [facility] [place] [facility] MR #: [id number] Department of Physician: Modesto Becerra MD Medicine Service Date: 03/22/2022 Division of Birthdate: 1950 Cardiology Room #: Adult Cardiovascular Services [address] [place] [id number] Cardiovascular Laboratory Report PACEMAKER IMPLANT PROCEDURE NOTE [...] using modified seldinger technique using a 5 Libyan micro-puncture needle on two occasions and 0.35 [...] pocket was created for the device. 6 Libyan Safesheaths were placed over the wire. An active fixation Biotronik pacing lead was then delivered through the 6Fsheath to the right ventricle. After confirmation of lead position on orthogonal views (RUBALCAVA and SIERRA LEONEAN) to confirm septal position, the screw was [...] lead position on orthogonal views (RUBALCAVA and SIERRA LEONEAN), the screw was activated. After confirmation of [...] Device info: Biotronik Edora Model# 8DR-T Serial# [id number] RA lead: Model# Biotronik Solia S45 Serial# [id number] Sensin.5mV Threshold: 0.6V@0.5ms Impedance: 507 Ohms RV lead: Model# Biotronik Solia S53 Serial# [id number] Sensin.5mV Threshold: 0.6V@0.4ms Impedance: 663 Ohms POST [...] content not included)... Normal The [facility] SPUTUM CULTUREon 03-17-2022 Epithelial cells LM Ql (Urine sed) Few Normal [facility] Comment on above: Performed By: #### B MP, BNP #### [facility] [address] [address] [address] Leni Hamlin Gram Stain Evaluation Comment Normal [facility] Comment on above: Result Comment: This specimen is of good quality and is acceptable for routine bacterial culture. Performed By: #### B MP, BNP #### [facility] [address] [address] [address] Leni Hamlin Lower Respiratory Culture Final report Normal [facility] Comment on above: Performed By: #### B MP, BNP #### [facility] [address] [address] [address] Leni Hamlin Result 1 Comment Normal [facility] Comment on above: Result Comment: Few gram negative rods. Performed By: #### B MP, BNP #### [facility] [address] [address] [address] Leni Hamlin Result Comment: Rout ine respiratory bola Result 2 Comment Normal [facility] Comment on above: Result Comment: Few gram positive cocci Performed By: #### B MP, BNP #### [facility] [address] [place] [address] Dr. Leni Hamlin Result 3 Comment Normal [facility] Comment on above: Result Comment: Rare gram positive rods Performed By: #### B MP, BNP #### [facility] [address] [address] [address] Leni Hamlin Result 4 Normal [facility] Comment on above: Performed By: #### B MP, BNP #### [facility] [address] [address] [address] Leni Hamlin White Blood Cells Few Normal [facility] Comment on above: Performed By: #### B MP, BNP #### [facility] [address] [address] [address] Leni Hamlin BNPon 03-15-2022 Natriuretic peptide B (Bld) [Mass/Vol] 429.0 pg/mL Normal <=900.0 The [facility] Comment on above: Performed By: #### C MP, CRP #### [facility] [address] [place] [address] Dr. Leni Hamlin CBC AUTO DIFFon 03-15-2022 BASO # 0.0 103/ul Normal 0.0-0.1 The [facility] Comment on above: Performed By: #### C VDAGS #### [facility] [address] [place] [address] Dr. Leni Hamlin Basophils/100 WBC (Bld) 0.2 % Normal 0.2-2.0 The [facility] Comment on above: Performed By: #### C VDAGS #### [facility] [address] [place] [address] Dr. Leni Hamlin EO # 0.0 103/ul Normal 0.0-0.7 [facility] Comment on above: Performed By: #### C VDAGS #### [facility] [address] [place] [address] Dr. Leni Hamlin Eosinophils/100 WBC (Bld) 0.0 % Critically low 0.9-7.0 [facility] Comment on above: Performed By: #### C VDAGS #### [facility] [address] [place] [address] Dr. Leni Hamlin Erythrocyte distribution width (RBC) [Ratio] 13.6 % Normal 11.0-15.0 The [facility] Comment on above: Performed By: #### C VDAGS #### [facility] [address] [place] [address] Dr. Leni Hamlin Hematocrit (Bld) [Volume fraction] 44.5 % Normal 42.0-54.0 [facility] Comment on above: Performed By: #### C VDAGS #### [facility] [address] [place] [address] Dr. Leni Hamlin Hemoglobin (Bld) [Mass/Vol] 13.8 g/dL Critically low 14.0-18.0 The [facility] Comment on above: Performed By: #### C VDAGS #### [facility] [address] [address] [address] Leni Hamlin IG # 0.35 10e3/ul Critically high 0.00-0.03 [facility] Comment on above: Performed By: #### C VDAGS #### [facility] [address] [address] [address] Leni Hamlin IG % 2.4 % Critically high 0.0-0.5 [facility] Comment on above: Performed By: #### C VDAGS #### [facility] [address] [address] [address] Leni Hamlin LYMPH # 0.6 103/ul Critically low 1.2-3.8 [facility] Comment on above: Performed By: #### C VDAGS #### [facility] [address] [address] [address] Leni Hamlin Lymphocytes/100 WBC (Bld) 4.1 % Critically low 20.5-60.0 [facility] Comment on above: Performed By: #### C VDAGS #### [facility] [address] [address] [address] Leni Hamlin MANUAL DIFF REQ NO Normal [facility] Comment on above: Performed By: #### C VDAGS #### [facility] [address] [address] [address] Leni Hamlin MCH (RBC) [Entitic mass] 29.4 pg Normal 25.9-34.0 [facility] Comment on above: Performed By: #### C VDAGS #### [facility] [address] [address] [address] Leni Hamlin MCHC (RBC) [Mass/Vol] 31.0 g/dL Normal 29.9-35.2 [facility] Comment on above: Performed By: #### C VDAGS #### [facility] [address] [address] [address] Leni Hamlin MCV (RBC) [Entitic vol] 94.7 fL Critically high 80.0-94.0 [facility] Comment on above: Performed By: #### C VDAGS #### [facility] [address] [place] [address] Dr. Leni Hamlin MONO # 0.7 103/ul Normal 0.3-0.8 [facility] Comment on above: Performed By: #### C VDAGS #### [facility] [address] [place] [address] Dr. Leni Hamlin Monocytes/100 WBC (Bld) 4.7 % Normal 1.7-12.0 [facility] Comment on above: Performed By: #### C VDAGS #### [facility] [address] [place] [address] Dr. Leni Hamlin NEUT # 12.9 103/ul Critically high 1.4-6.5 [facility] Comment on above: Performed By: #### C VDAGS #### [facility] [address] [place] [address] Dr. Leni Hamlin Neutrophils/100 WBC (Bld) 88.6 % Critically high 43.0-75.0 [facility] Comment on above: Performed By: #### C VDAGS #### [facility] [address] [place] [address] Dr. Leni Hamlin Platelet mean volume (Bld) [Entitic vol] 10.2 fL Normal 9.5-13.5 [facility] Comment on above: Performed By: #### C VDAGS #### [facility] [address] [place] [address] Dr. Leni Hamlin PLT 176 103/ul Normal 150-450 [facility] Comment on above: Performed By: #### C VDAGS #### [facility] [address] [place] [address] Dr. Leni Hamlin RBC 4.70 106/ul Normal 4.70-6.10 [facility] Comment on above: Performed By: #### C VDAGS #### [facility] [address] [place] [address] Dr. Leni Hamlin WBC 14.6 103/ul Critically high 4.0-11.0 The [facility] Comment on above: Performed By: #### C VDAGS #### [facility] [address] [place] [address] Dr. Leni Hamlin PROF CHEM 8 (BAS METB)on Anion gap [Moles/Vol] 10.2 mmol/L Normal [facility] Comment on above: Performed By: #### C MP, CRP #### [facility] [address] [place] [address] Dr. Leni Hamlin Calcium [Mass/Vol] 8.0 mg/dL Critically low 8.5-10.1 Th [facility] Comment on above: Performed By: #### C MP, CRP #### [facility] [address] [place] [address] Dr. Leni Hamlin Chloride [Moles/Vol] 104 mmol/L Normal 98-107 [facility] Comment on above: Performed By: #### C MP, CRP #### [facility] [address] [place] [address] Dr. Leni Hamlin CO2 [Moles/Vol] 28.2 mmol/L Normal 21.0-32.0 [facility] Comment on above: Performed By: #### C MP, CRP #### [facility] [address] [place] [address] Dr. Leni Hamlin Creatinine [Mass/Vol] 1.36 mg/dL Critically high 0.70-1.30 [facility] Comment on above: Performed By: #### C MP, CRP #### [facility] [address] [place] [address] Dr. Leni Hamlni EGFR-AF KOSOVAN >60 Normal >=60 [facility] Comment on above: Performed By: #### C MP, CRP #### [facility] [address] [place] [address] Dr. Leni Hamlin EGFR-NON AF KOSOVAN 51 mL/min/1.73m2 Critically low >=60 [facility] Comment on above: Performed By: #### C MP, CRP #### [facility] [address] [place] [address] Dr. Leni Hamlin Glucose [Mass/Vol] 205 mg/dL Critically high 74-106 T [facility] Comment on above: Performed By: #### C MP, CRP #### [facility] [address] [place] [address] Dr. Leni Hamlin Potassium [Moles/Vol] 4.4 mmol/L Normal 3.5-5.1 [facility] Comment on above: Performed By: #### C MP, CRP #### [facility] [address] [place] [address] Dr. Leni Hamlin Sodium [Moles/Vol] 138 mmol/L Normal 136-145 [facility] Comment on above: Performed By: #### C MP, CRP #### [facility] [address] [place] [address] Dr. Leni Hamlin Urea nitrogen [Mass/Vol] 29.0 mg/dL Critically high 7.0-18.0 [facility] Comment on above: Performed By: #### C MP, CRP #### [facility] [address] [place] [address] Dr. Leni Hamlin Urea nitrogen/Creatinine [Mass ratio] 21.3 mg/mg Normal [facility] Comment on above: Performed By: #### C MP, CRP #### [facility] [address] [place] [address] Dr. Leni Hamlin BNPon 03-14-2022 Natriuretic peptide B (Bld) [Mass/Vol] 337.0 pg/mL Normal <=900.0 [facility] Comment on above: Performed By: #### C RP #### [facility] [address] [place] [address] Dr. Leni Hamlin CBC AUTO DIFFon 03-14-2022 BASO # 0.0 103/ul Normal 0.0-0.1 [facility] Comment on above: Performed By: #### C MP, CRP #### [facility] [address] [place] [address] Dr. Leni Hamlin Basophils/100 WBC (Bld) 0.2 % Normal 0.2-2.0 [facility] Comment on above: Performed By: #### C MP, CRP #### [facility] [address] [address] [address] Leni Hamlin EO # 0.0 103/ul Normal 0.0-0.7 [facility] Comment on above: Performed By: #### C MP, CRP #### [facility] [address] [address] [address] Leni Hamlin Eosinophils/100 WBC (Bld) 0.0 % Critically low 0.9-7.0 [facility] Comment on above: Performed By: #### C MP, CRP #### [facility] [address] [address] [address] Leni Hamlin Erythrocyte distribution width (RBC) [Ratio] 13.6 % Normal 11.0-15.0 [facility] Comment on above: Performed By: #### C MP, CRP #### [facility] [address] [place] [address] Dr. Leni Hamlin Hematocrit (Bld) [Volume fraction] 47.8 % Normal 42.0-54.0 [facility] Comment on above: Performed By: #### C MP, CRP #### [facility] [address] [address] [address] Leni Hamlin Hemoglobin (Bld) [Mass/Vol] 14.6 g/dL Normal 14.0-18.0 [facility] Comment on above: Performed By: #### C MP, CRP #### [facility] [address] [address] [address] Leni Hamlin IG # 0.22 10e3/ul Critically high 0.00-0.03 [facility] Comment on above: Performed By: #### C MP, CRP #### [facility] [address] [address] [address] Leni Hamlin IG % 1.3 % Critically high 0.0-0.5 [facility] Comment on above: Performed By: #### C MP, CRP #### [facility] [address] [place] [address] Dr. Leni Hamlin LYMPH # 0.5 103/ul Critically low 1.2-3.8 [facility] Comment on above: Performed By: #### C MP, CRP #### [facility] [address] [address] [address] Leni Hamlin Lymphocytes/100 WBC (Bld) 2.9 % Critically low 20.5-60.0 [facility] Comment on above: Performed By: #### C MP, CRP #### [facility] [address] [address] [address] Leni Hamlin MANUAL DIFF REQ NO Normal [facility] Comment on above: Performed By: #### C MP, CRP #### [facility] [address] [place] [address] Dr. Leni Hamlin MCH (RBC) [Entitic mass] 29.4 pg Normal 25.9-34.0 [facility] Comment on above: Performed By: #### C MP, CRP #### [facility] [address] [place] [address] Dr. Leni Hamlin MCHC (RBC) [Mass/Vol] 30.5 g/dL Normal 29.9-35.2 [facility] Comment on above: Performed By: #### C MP, CRP #### [facility] [address] [address] [address] Leni Hamlin MCV (RBC) [Entitic vol] 96.4 fL Critically high 80.0-94.0 [facility] Comment on above: Performed By: #### C MP, CRP #### [facility] [address] [place] [address] Dr. Leni Hamlin MONO # 1.1 103/ul Critically high 0.3-0.8 [facility] Comment on above: Performed By: #### C MP, CRP #### [facility] [address] [place] [address] Dr. Leni Hamlin Monocytes/100 WBC (Bld) 6.4 % Normal 1.7-12.0 [facility] Comment on above: Performed By: #### C MP, CRP #### [facility] [address] [place] [address] Dr. Leni Hamlin NEUT # 15.2 103/ul Critically high 1.4-6.5 [facility] Comment on above: Performed By: #### C MP, CRP #### [facility] [address] [place] [address] Dr. Leni Hamlin Neutrophils/100 WBC (Bld) 89.2 % Critically high 43.0-75.0 [facility] Comment on above: Performed By: #### C MP, CRP #### [facility] [address] [place] [address] Dr. Leni Hamlin Platelet mean volume (Bld) [Entitic vol] 10.4 fL Normal 9.5-13.5 [facility] Comment on above: Performed By: #### C MP, CRP #### [facility] [address] [place] [address] Dr. Leni Hamlin PLT 167 103/ul Normal 150-450 [facility] Comment on above: Performed By: #### C MP, CRP #### [facility] [address] [place] [address] Dr. Leni Hamlin RBC 4.96 106/ul Normal 4.70-6.10 [facility] Comment on above: Performed By: #### C MP, CRP #### [facility] [address] [place] [address] Dr. Leni Hamlin WBC 17.0 103/ul Critically high 4.0-11.0 [facility] Comment on above: Performed By: #### C MP, CRP #### [facility] [address] [place] [address] Dr. Leni Hamlin PROF CHEM 8 (BAS METB)on Anion gap [Moles/Vol] 7.0 mmol/L Normal [facility] Comment on above: Performed By: #### C VDAGS #### [facility] [address] [place] [address] Dr. Leni Hamlin Calcium [Mass/Vol] 8.3 mg/dL Critically low 8.5-10.1 Th e [facility] Comment on above: Performed By: #### C VDAGS #### [facility] [address] [place] [address] Dr. Leni Hamlin Chloride [Moles/Vol] 102 mmol/L Normal 98-107 [facility] Comment on above: Performed By: #### C VDAGS #### [facility] [address] [place] [address] Dr. Leni Hamlin CO2 [Moles/Vol] 29.6 mmol/L Normal 21.0-32.0 [facility] Comment on above: Performed By: #### C VDAGS #### [facility] [address] [place] [address] Dr. Leni Hamlin Creatinine [Mass/Vol] 1.48 mg/dL Critically high 0.70-1.30 [facility] Comment on above: Performed By: #### C VDAGS #### [facility] [address] [place] [address] Dr. Leni Hamlin EGFR-AF KOSOVAN 56 mL/min/1.73m2 Critically low >=60 [facility] Comment on above: Performed By: #### C VDAGS #### [facility] [address] [place] [address] Dr. Leni Hamlin EGFR-NON AF KOSOVAN 47 mL/min/1.73m2 Critically low >=60 [facility] Comment on above: Performed By: #### C VDAGS #### [facility] [address] [place] [address] Dr. Leni Hamlin Glucose [Mass/Vol] 168 mg/dL Critically high 74-106 T [facility] Comment on above: Performed By: #### C VDAGS #### [facility] [address] [place] [address] Dr. Leni Hamlin Potassium [Moles/Vol] 4.6 mmol/L Normal 3.5-5.1 [facility] Comment on above: Performed By: #### C VDAGS #### [facility] [address] [place] [address] Dr. Leni Hamlin Sodium [Moles/Vol] 134 mmol/L Critically low 136-145 Th [facility] Comment on above: Performed By: #### C VDAGS #### [facility] [address] [place], [place] [id number] Dr. Leni Hamlin Urea nitrogen [Mass/Vol] 29.0 mg/dL Critically high 7.0-18.0 The [facility] Comment on above: Performed By: #### C VDAGS #### [facility] [address] [place] [address] Dr. Leni Hamlin Urea nitrogen/Creatinine [Mass ratio] 19.6 mg/mg Normal [facility] Comment on above: Performed By: #### C VDAGS #### [facility] [address] [place] [address] Dr. Leni Hamlin BNPon 03-13-2022 Natriuretic peptide B (Bld) [Mass/Vol] 501.0 pg/mL Normal <=900.0 The [facility] Comment on above: Performed By: #### B MP, BNP #### [facility] [address] [place] [address] Dr. Leni Hamlin CBC W MANUAL DIFFon 03-13-20 22 ATYPICAL LYMPH # Normal [facility] Comment on above: Performed By: #### C VDAGS #### [facility] [address] [place] [address] Dr. Leni Hamlin ATYPICAL LYMPH % Normal [facility] Comment on above: Performed By: #### C VDAGS #### [facility] [address] [place] [address] Dr. Leni Hamlin BAND # 2.1 103/ul Critically high 0.0-0.3 [facility] Comment on above: Performed By: #### C VDAGS #### [facility] [address] [place] [address] Dr. Leni Hamlin BAND % 12 % Critically high 0-5 [facility] Comment on above: Performed By: #### C VDAGS #### [facility] [address] [place] [address] Dr. eLni Hamlin BASOM # 0.00 103/ul Normal 0.00-0.10 The [facility] Comment on above: Performed By: #### C VDAGS #### [facility] [address] [place] [address] Dr. Yilan Hamlin BASOM % 0.0 % Critically low 0.2-2.0 [facility] Comment on above: Performed By: #### C VDAGS #### [facility] [address] [place] [address] Dr. Leni Hamlin BLAST # Normal [facility] Comment on above: Performed By: #### C VDAGS #### [facility] [address] [place] [address] Dr. Leni Hamlin BLAST % Normal [facility] Comment on above: Performed By: #### C VDAGS #### [facility] [address] [place] [address] Dr. Leni Hamlin CORRECTED WBC Normal 4.0-11.0 [facility] Comment on above: Performed By: #### C VDAGS #### [facility] [address] [place] [address] Dr. Leni Hamlin EOS # 0.00 103/ul Normal 0.00-0.70 [facility] Comment on above: Performed By: #### C VDAGS #### [facility] [address] [place] [address] Dr. Leni Hamlin EOS% 0.0 % Critically low 0.9-7.0 [facility] Comment on above: Performed By: #### C VDAGS #### [facility] [address] [place] [address] Dr. Leni Hamlin HCT 51.2 % Normal 42.0-54.0 The [facility] Comment on above: Performed By: #### C VDAGS #### [facility] [address] [place] [address] Dr. Leni Hamlin HGB 15.4 g/dl Normal 14.0-18.0 [facility] Comment on above: Performed By: #### C VDAGS #### [facility] [address] [place] [address] Dr. Leni Hamlin LYMPHM # 0.52 103/ul Critically low 1.20-3.80 [facility] Comment on above: Performed By: #### C VDAGS #### [facility] [address] [place] [address] Dr. Leni Hamlin LYMPHM% 3.0 % Critically low 20.5-60.0 [facility] Comment on above: Performed By: #### C VDAGS #### [facility] [address] [place] [address] Dr. Leni Hamlin MCH 29.6 pg Normal 25.9-34.0 The [facility] Comment on above: Performed By: #### C VDAGS #### [facility] [address] [place] [address] Dr. Leni Hamlin MCHC 30.1 g/dl Normal 29.9-35.2 The [facility] Comment on above: Performed By: #### C VDAGS #### [facility] [address] [place] [address] Dr. Leni Hamlin MCV 98.5 fL Critically high 80.0-94.0 [facility] Comment on above: Performed By: #### C VDAGS #### [facility] [address] [place] [address] Dr. Leni Hamlin METAMYELOCYTE # Normal [facility] Comment on above: Performed By: #### C VDAGS #### [facility] [address] [place] [address] Dr. Leni Hamlin METAMYELOCYTE % Normal [facility] Comment on above: Performed By: #### C VDAGS #### [facility] [address] [place] [address] Dr. Leni Hamlin MONOM# 0.86 103/ul Critically high 0.30-0.80 [facility] Comment on above: Performed By: #### C VDAGS #### [facility] [address] [place] [address] Dr. Leni Hamlin MONOM% 5.0 % Normal 1.7-12.0 [facility] Comment on above: Performed By: #### C VDAGS #### [facility] [address] [place] [address] Dr. Leni Hamlin MPV 10.0 fL Normal 9.5-13.5 [facility] Comment on above: Performed By: #### C VDAGS #### [facility] [address] [address] [address] Leni Hamlin MYELOCYTE # Normal [facility] Comment on above: Performed By: #### C VDAGS #### [facility] [address] [place] [address] Dr. Leni Hamlin MYELOCYTE % Normal [facility] Comment on above: Performed By: #### C VDAGS #### [facility] [address] [place] [address] Dr. Leni Hamlin NRBC Normal [facility] Comment on above: Performed By: #### C VDAGS #### [facility] [address] [place] [address] Dr. Leni Hamlin PLT 161 103/ul Normal 150-450 [facility] Comment on above: Performed By: #### C VDAGS #### [facility] [address] [place] [address] Dr. Leni Hamlin RBC 5.20 106/ul Normal 4.70-6.10 [facility] Comment on above: Performed By: #### C VDAGS #### [facility] [address] [place] [address] Dr. Leni Hamlin RDW 13.5 % Normal 11.0-15.0 [facility] Comment on above: Performed By: #### C VDAGS #### [facility] [address] [place] [address] Dr. Leni Hamlin SEG # 13.76 103/ul Critically high 1.40-6.50 [facility] Comment on above: Performed By: #### C VDAGS #### [facility] [address] [place] [address] Dr. Leni Hamlin SEG % 80.0 % Critically high 43.0-75.0 [facility] Comment on above: Performed By: #### C VDAGS #### [facility] [address] [place] [address] Dr. Leni Hamlin WBC 17.2 103/ul Critically high 4.0-11.0 [facility] Comment on above: Performed By: #### C VDAGS #### [facility] [address] [place] [address] Dr. Leni Hamlin PROF CHEM 8 (BAS METB)on Anion gap [Moles/Vol] 12.5 mmol/L Normal [facility] Comment on above: Performed By: #### C VDAGS #### [facility] [address] [place] [address] Dr. Leni Hamlin Calcium [Mass/Vol] 8.4 mg/dL Critically low 8.5-10.1 Th e [facility] Comment on above: Performed By: #### C VDAGS #### [facility] [address] [place] [address] Dr. Lnei Hamlin Chloride [Moles/Vol] 100 mmol/L Normal 98-107 [facility] Comment on above: Performed By: #### C VDAGS #### [facility] [address] [place] [address] Dr. Leni Hamlin CO2 [Moles/Vol] 26.7 mmol/L Normal 21.0-32.0 [facility] Comment on above: Performed By: #### C VDAGS #### [facility] [address] [place] [address] Dr. Leni Hamlin Creatinine [Mass/Vol] 1.87 mg/dL Critically high 0.70-1.30 [facility] Comment on above: Performed By: #### C VDAGS #### [facility] [address] [place] [address] Dr. Leni Hamlin EGFR-AF KOSOVAN 43 mL/min/1.73m2 Critically low >=60 [facility] Comment on above: Performed By: #### C VDAGS #### [facility] [address] [place] [address] Dr. Leni Hamlin EGFR-NON AF KOSOVAN 36 mL/min/1.73m2 Critically low >=60 [facility] Comment on above: Performed By: #### C VDAGS #### [facility] [address] [address] [address] Leni Hamlin Glucose [Mass/Vol] 222 mg/dL Critically high 74-106 T [facility] Comment on above: Performed By: #### C VDAGS #### [facility] [address] [place] [address] Dr. Leni Hamlin Potassium [Moles/Vol] 4.2 mmol/L Normal 3.5-5.1 [facility] Comment on above: Performed By: #### C VDAGS #### [facility] [address] [place] [address] Dr. Leni Hamlin Sodium [Moles/Vol] 135 mmol/L Critically low 136-145 Th [facility] Comment on above: Performed By: #### C VDAGS #### [facility] [address] [place] [address] Dr. Leni Hamlin Urea nitrogen [Mass/Vol] 25.0 mg/dL Critically high 7.0-18.0 [facility] Comment on above: Performed By: #### C VDAGS #### [facility] [address] [place] [address] Dr. Leni Hamlin Urea nitrogen/Creatinine [Mass ratio] 13.4 mg/mg Normal [facility] Comment on above: Performed By: #### C VDAGS #### [facility] [address] [place] [address] Dr. Leni Hamlin Anion gap [Moles/Vol] 10.7 mmol/L Normal [facility] Comment on above: Performed By: #### B MP, BNP #### [facility] [address] [place] [address] Dr. Leni Hamlin Calcium [Mass/Vol] 8.2 mg/dL Critically low 8.5-10.1 [facility] Comment on above: Performed By: #### B MP, BNP #### [facility] [address] [place] [address] Dr. Leni Hamlin Chloride [Moles/Vol] 101 mmol/L Normal 98-107 [facility] Comment on above: Performed By: #### B MP, BNP #### [facility] [address] [address] [address] Leni Hamlin CO2 [Moles/Vol] 30.0 mmol/L Normal 21.0-32.0 [facility] Comment on above: Performed By: #### B MP, BNP #### [facility] [address] [address] [address] Leni Hamlin Creatinine [Mass/Vol] 1.49 mg/dL Critically high 0.70-1.30 [facility] Comment on above: Performed By: #### B MP, BNP #### [facility] [address] [address] [address] Leni Hamlin EGFR-AF KOSOVAN 56 mL/min/1.73m2 Critically low >=60 [facility] Comment on above: Performed By: #### B MP, BNP #### [facility] [address] [place] [address] Dr. Leni Hamlin EGFR-NON AF KOSOVAN 46 mL/min/1.73m2 Critically low >=60 [facility] Comment on above: Performed By: #### B MP, BNP #### [facility] [address] [place] [address] Dr. Leni Hamlin Glucose [Mass/Vol] 158 mg/dL Critically high 74-106 [facility] Comment on above: Performed By: #### B MP, BNP #### [facility] [address] [place] [address] Dr. Leni Hamlin Potassium [Moles/Vol] 5.7 mmol/L Critically high 3.5-5.1 [facility] Comment on above: Performed By: #### B MP, BNP #### [facility] [address] [place] [address] Dr. Leni Hamlin Sodium [Moles/Vol] 136 mmol/L Normal 136-145 [facility] Comment on above: Performed By: #### B MP, BNP #### [facility] [address] [place] [address] Dr. Leni Hamlin Urea nitrogen [Mass/Vol] 19.0 mg/dL Critically high 7.0-18.0 [facility] Comment on above: Performed By: #### B MP, BNP #### [facility] [address] [place] [address] Dr. Leni Hamlin Urea nitrogen/Creatinine [Mass ratio] 12.8 mg/mg Normal [facility] Comment on above: Performed By: #### B MP, BNP #### [facility] [address] [place] [address] Dr. Leni Hamlin BNPon 03-12-2022 Natriuretic peptide B (Bld) [Mass/Vol] 405.0 pg/mL Normal <=900.0 [facility] Comment on above: Performed By: #### B MP, BNP #### [facility] [address] [place] [address] Dr. Leni Hamlin CBC AUTO DIFFon 03-12-2022 BASO # 0.1 103/ul Normal 0.0-0.1 [facility] Comment on above: Performed By: #### C BC #### [facility] [address] [place] [address] Dr. Leni Hamlin Basophils/100 WBC (Bld) 0.3 % Normal 0.2-2.0 [facility] Comment on above: Performed By: #### C BC #### [facility] [address] [place] [address] Dr. Leni Hamlin EO # 0.0 103/ul Normal 0.0-0.7 [facility] Comment on above: Performed By: #### C BC #### [facility] [address] [place] [address] Dr. Leni Hamlin Eosinophils/100 WBC (Bld) 0.1 % Critically low 0.9-7.0 [facility] Comment on above: Performed By: #### C BC #### [facility] [address] [place] [address] Dr. Leni Hamlin Erythrocyte distribution width (RBC) [Ratio] 13.3 % Normal 11.0-15.0 [facility] Comment on above: Performed By: #### C BC #### [facility] [address] [place] [address] Dr. Leni Hamlin Hematocrit (Bld) [Volume fraction] 52.2 % Normal 42.0-54.0 [facility] Comment on above: Performed By: #### C BC #### [facility] [address] [place] [address] Dr. Leni Hamlin Hemoglobin (Bld) [Mass/Vol] 16.5 g/dL Normal 14.0-18.0 [facility] Comment on above: Performed By: #### C BC #### [facility] [address] [place] [address] Dr. Leni Hamlin IG # 0.19 10e3/ul Critically high 0.00-0.03 [facility] Comment on above: Performed By: #### C BC #### [facility] [address] [place] [address] Dr. Leni Hamlin IG % 1.0 % Critically high 0.0-0.5 [facility] Comment on above: Performed By: #### C BC #### [facility] [address] [place] [address] Dr. Leni Hamlin LYMPH # 0.8 103/ul Critically low 1.2-3.8 [facility] Comment on above: Performed By: #### C BC #### [facility] [address] [place] [address] Dr. Leni Hamlin Lymphocytes/100 WBC (Bld) 3.8 % Critically low 20.5-60.0 [facility] Comment on above: Performed By: #### C BC #### [facility] [address] [place] [address] Dr. Leni Hamlin MANUAL DIFF REQ NO Normal [facility] Comment on above: Performed By: #### C BC #### [facility] [address] [place] [address] Dr. Leni Hamlin MCH (RBC) [Entitic mass] 29.6 pg Normal 25.9-34.0 [facility] Comment on above: Performed By: #### C BC #### [facility] [address] [place] [address] Dr. Leni Hamlin MCHC (RBC) [Mass/Vol] 31.6 g/dL Normal 29.9-35.2 [facility] Comment on above: Performed By: #### C BC #### [facility] [address] [address] [address] Leni Hamlin MCV (RBC) [Entitic vol] 93.7 fL Normal 80.0-94.0 [facility] Comment on above: Performed By: #### C BC #### [facility] [address] [address] [address] Leni Hamlin MONO # 1.6 103/ul Critically high 0.3-0.8 [facility] Comment on above: Performed By: #### C BC #### [facility] [address] [address] [address] Leni Hamlin Monocytes/100 WBC (Bld) 8.3 % Normal 1.7-12.0 [facility] Comment on above: Performed By: #### C BC #### [facility] [address] [address] [address] Leni Hamlin NEUT # 17.0 103/ul Critically high 1.4-6.5 [facility] Comment on above: Performed By: #### C BC #### [facility] [address] [address] [address] Leni Hamlin Neutrophils/100 WBC (Bld) 86.5 % Critically high 43.0-75.0 [facility] Comment on above: Performed By: #### C BC #### [facility] [address] [address] [address] Leni Hamlin Platelet mean volume (Bld) [Entitic vol] 10.0 fL Normal 9.5-13.5 [facility] Comment on above: Performed By: #### C BC #### [facility] [address] [address] [address] Leni Hamlin PLT 194 103/ul Normal 150-450 [facility] Comment on above: Performed By: #### C BC #### [facility] [address] [address] [address] Leni Hamlin RBC 5.57 106/ul Normal 4.70-6.10 [facility] Comment on above: Performed By: #### C BC #### [facility] [address] [place], [place] [address] Dr. Leni Hamlin WBC 19.7 103/ul Critically high 4.0-11.0 [facility] Comment on above: Performed By: #### C BC #### [facility] [address] [place], [place] [address] CSPINE WO CONon [...] Normal The [facility] CT HEAD WO CONon 03-12-2022 CT HEAD [...] Normal [facility] CTA CHEST WO W CONon 022 CTA [...] Normal [facility] CULTURE BLOODon 03-12-2022 Microscopic examination of blood, culture Culture Observations: NO GROWTH AT 5 DAYS. Normal [facility] Comment on above: Performed By: #### C MP, CRP #### [facility] [address] [place] [address] Dr. Leni Hamlin Microscopic examination of blood, culture Culture Observations: NO GROWTH AT 5 DAYS. Normal [facility] Comment on above: Performed By: #### C MP, CRP #### [facility] [address] [address] [address] Leni Hamlin Covid-19 PCR (CVDTB)on SARS-CoV-2 (COVID-19) RNA VENESSA+probe Ql (Unsp spec) Not detected Normal NOT DETECTED The [facility] Comment on above: Result Comment: When diagnostic testing is negative, the possibility of a false negative should be considered in the context of a patient's recent exposures and the presence of clinical signs and symptoms consistent with SARS-CoV-2. This test is not yet approved or cleared by the [place] Food and Drug Administration (FDA). This test was developed by [employer], [employer], [place]. The performance characteristics of this test were validated by The [facility]. The results are not intended to be used as the sole means for clinical diagnosis or patient management decisions. The [facility] is authorized under Clinical Laboratory Improvement Amendments [...] for this test is supported by the [place] of Health and Human Service's declaration that [...] RP #### [facility] [address] [place] [address] Dr. Leni Hamlin D-DIMERon 03-12-2022 D-DIMER 6.00 mg/L FEU Critically high 0.19-0.50 [facility] Comment on above: Performed By: #### B MP, BNP #### [facility] [address] [place] [address] Dr. Leni Hamlin D-DIMER COMMENTS SEE BELOW Normal [facility] Comment on above: Result Comment: Incr [...] BNP #### [facility] [address] [place] [address] Dr. Leni Hamlin ER URINE PROFILEon 2 Bilirubin Ql (U) Negative Normal NEGATIVE [facility] Comment on above: Performed By: #### C RP #### [facility] [address] [place] [address] Dr. Leni Hamlin Clarity (U) CLEAR Normal CLEAR [facility] Comment on above: Performed By: #### C RP #### [facility] [address] [place] [address] Dr. Leni Hamlin Color (U) YELLOW Normal YELLOW [facility] Comment on above: Performed By: #### C RP #### [facility] [address] [place] [address] Dr. Leni ELLIS A micrscopic examination will be performed if indicated. Normal [facility] Comment on above: Performed By: #### C RP #### [facility] [address] [place] [address] Dr. Leni Hamlin Glucose Ql (U) Negative Normal NEGATIVE [facility] Comment on above: Performed By: #### C RP #### [facility] [address] [place] [address] Dr. Leni Hamlin Hemoglobin Ql (U) SMALL Abnormal NEGATIVE [facility] Comment on above: Performed By: #### C RP #### [facility] [address] [place] [address] Dr. Leni Hamlin Ketones Ql (U) Negative Normal NEGATIVE [facility] Comment on above: Performed By: #### C RP #### [facility] [address] [place] [address] Dr. Leni Hamlin LEUKOCYTES Negative Normal NEGATIVE [facility] Comment on above: Performed By: #### C RP #### [facility] [address] [place] [address] Dr. Leni Hamlin Nitrite Ql (U) Negative Normal NEGATIVE [facility] Comment on above: Performed By: #### C RP #### [facility] [address] [place] [address] Dr. Leni Hamlin pH (U) 5.5 [pH] Normal 5-9 [facility] Comment on above: Performed By: #### C RP #### [facility] [address] [place] [address] Dr. Leni Hamlin SPEC GRAVITY <=1.005 Abnormal 1.005-<=1.025 [facility] Comment on above: Performed By: #### C RP #### [facility] [address] [place] [address] Dr. Leni Hamlin UA PROTEIN >300 Abnormal NEGATIVE/ TRACE [facility] Comment on above: Performed By: #### C RP #### [facility] [address] [place] [address] Dr. Leni Hamlin UR MICRO IND INDICATED Normal [facility] Comment on above: Performed By: #### C RP #### [facility] [address] [place] [address] Dr. Leni Hamlin Urobilinogen Qn (U) 0.2 {Stacy'U}/dL Normal 0.2 - 1. 0 [facility] Comment on above: Performed By: #### C RP #### [facility] [address] [place] [address] Dr. Leni Hamlin LACTATE/LACTIC ACIDon 2021 Lactate [Moles/Vol] 0.5 mmol/L Normal 0.4-2.0 [place] Comment on above: Performed By: #### B MP, BNP #### [facility] [address] [place] [address] Dr. Leni Hamlin Lactate [Moles/Vol] 1.6 mmol/L Normal 0.4-2.0 [place] Comment on above: Performed By: #### L ACT #### [facility] [address] [place] [address] Dr. Leni Hamlin PROF 14(COMP METB)on 022 Albumin [Mass/Vol] 3.1 g/dL Critically low 3.4-5.0 [facility] Comment on above: Performed By: #### B MP, BNP #### [facility] [address] [address] [address] Leni Hamlin Albumin/Globulin [Mass ratio] 0.8 {ratio} Normal [facility] Comment on above: Performed By: #### B MP, BNP #### [facility] [address] [address] [address] Leni Hamlin ALP [Catalytic activity/Vol] 52 U/L Normal 46-116 [facility] Comment on above: Performed By: #### B MP, BNP #### [facility] [address] [place] [address] Dr. Leni Hamlin ALT [Catalytic activity/Vol] 27 U/L Normal 16-63 [facility] Comment on above: Performed By: #### B MP, BNP #### [facility] [address] [place] [address] Dr. Leni Hamlin Anion gap [Moles/Vol] 12.9 mmol/L Normal [facility] Comment on above: Performed By: #### B MP, BNP #### [facility] [address] [address] [address] Leni Hamlin AST [Catalytic activity/Vol] 14 U/L Critically low 15-37 [facility] Comment on above: Performed By: #### B MP, BNP #### [facility] [address] [place] [address] Dr. Leni Hamlin Bilirubin [Mass/Vol] 1.2 mg/dL Critically high 0.2-1.0 [facility] Comment on above: Performed By: #### B MP, BNP #### [facility] [address] [place] [address] Dr. Leni Hamlin Calcium [Mass/Vol] 8.2 mg/dL Critically low 8.5-10.1 [facility] Comment on above: Performed By: #### B MP, BNP #### [facility] [address] [place] [address] Dr. Leni Hamlin Chloride [Moles/Vol] 99 mmol/L Normal 98-107 [facility] Comment on above: Performed By: #### B MP, BNP #### [facility] [address] [place] [address] Dr. Leni Hamlin CO2 [Moles/Vol] 28.4 mmol/L Normal 21.0-32.0 [facility] Comment on above: Performed By: #### B MP, BNP #### [facility] [address] [place] [address] Dr. Leni Hamlin Creatinine [Mass/Vol] 1.44 mg/dL Critically high 0.70-1.30 [facility] Comment on above: Performed By: #### B MP, BNP #### [facility] [address] [place] [address] Dr. Leni Hamlin EGFR-AF KOSOVAN 58 mL/min/1.73m2 Critically low >=60 [facility] Comment on above: Performed By: #### B MP, BNP #### [facility] [address] [place] [address] Dr. Leni Hamlin EGFR-NON AF KOSOVAN 48 mL/min/1.73m2 Critically low >=60 [facility] Comment on above: Performed By: #### B MP, BNP #### [facility] [address] [place] [address] Dr. Leni Hamlin Globulin (S) [Mass/Vol] 3.8 g/dL Normal [facility] Comment on above: Performed By: #### B MP, BNP #### [facility] [address] [place] [address] Dr. Leni Hamlin Glucose [Mass/Vol] 137 mg/dL Critically high 74-106 [facility] Comment on above: Performed By: #### B MP, BNP #### [facility] [address] [place] [address] Dr. Leni Hamlin Potassium [Moles/Vol] 4.3 mmol/L Normal 3.5-5.1 [facility] Comment on above: Performed By: #### B MP, BNP #### [facility] [address] [place] [address] Dr. Leni Hamlin Protein [Mass/Vol] 6.9 g/dL Normal 6.1-8.2 [facility] Comment on above: Performed By: #### B MP, BNP #### [facility] [address] [place] [address] Dr. Leni Hamlin Sodium [Moles/Vol] 136 mmol/L Normal 136-145 [facility] Comment on above: Performed By: #### B MP, BNP #### [facility] [address] [place] [address] Dr. Leni Hamlin Urea nitrogen [Mass/Vol] 15.0 mg/dL Normal 7.0-18.0 [facility] Comment on above: Performed By: #### B MP, BNP #### [facility] [address] [place] [address] Dr. Leni Hamlin Urea nitrogen/Creatinine [Mass ratio] 10.4 mg/mg Normal [facility] Comment on above: Performed By: #### B MP, BNP #### [facility] [address] [place] [address] Dr. Leni Hamlin PROTIMEon 03-12-2022 INR Coag (PPP) [Relative time] 1.07 {INR} Normal [facility] Comment on above: Performed By: #### B MP, BNP #### [facility] [address] [place] [address] Dr. Leni Hamlin INR GUIDELINES SEE BELOW Normal [facility] Comment on above: Result Comment: WAQAS RED INR: 2.0 - 3.0 CONDITIONS NOT LISTED BELOW 2.5 - 3.5 FOR PROSTHETIC HEART VALVE REPLACEMENT 2.5 - 3.5 RECURRENT THROMBOSIS Performed By: #### B MP, BNP #### [facility] [address] [place] [address] Dr. Leni Hamlin PT Coag (PPP) [Time] 11.5 s Normal 9.0-11.6 [facility] Comment on above: Performed By: #### B MP, BNP #### [facility] [address] [place] [address] Dr. Leni Hamlin TROPONIN, HIGH SENSITIVITYon 03-12-2022 HSTROP 12.8 pg/mL Normal 4.0-76.1 [facility] Comment on above: Result Comment: CUT- OFF POINTS HAVE BEEN ESTABLISHED BASED ON THE FOURTH UNIVERSAL DEFINITIONS OF MYOCARDIAL INFARCTION. THE UPPER REFERENCE LIMIT (URL) OF TROPONIN, DEFINED THE 99TH PERCENTILE OF cTnI DISTRIBUTION IN A REFERENCE POPULATION, HAS BEEN CONFIRMED THE DECISION THRESHOLD FOR AL DIAGNOSIS. Performed By: #### B MP, BNP #### [facility] [address] [place] [address] Dr. Leni Hamlin URINE MICROSCOPIC ONLYon BACTERIA NONE SEEN Normal NONE SEEN [facility] Comment on above: Performed By: #### C RP #### [facility] [address] [place] [address] Dr. Leni Hamlin Bacteria identified Cx Nom (U) NOT INDICATED Normal [facility] Comment on above: Performed By: #### C RP #### [facility] [address] [place] [address] Dr. Leni Hamlin CAST NONE SEEN Normal NONE SEEN [facility] Comment on above: Performed By: #### C RP #### [facility] [address] [place] [address] Dr. Leni Hamlin Crystals LM Nom (Urine sed) NONE SEEN Normal NONE SEEN [facility] Comment on above: Performed By: #### C RP #### [facility] [address] [place] [address] Dr. Leni Hamlin Epithelial cells LM Ql (Urine sed) NONE SEEN Normal NONE SEEN /RARE [facility] Comment on above: Performed By: #### C RP #### [facility] [address] [place] [address] Dr. Leni Hamlin MUCOUS MODERATE Abnormal NONE SEEN [facility] Comment on above: Performed By: #### C RP #### [facility] [address] [place] [address] Dr. Leni Hamlin RBC 2-5 Abnormal 0-2 [facility] Comment on above: Performed By: #### C RP #### [facility] [address] [address] [address] Leni Hamlin WBC NONE SEEN Normal NONE SEEN [facility] Comment on above: Performed By: #### C RP #### [facility] [address] [id number] Leni Hamlin XR RIBS RT PA [...] Normal [facility]on 01-09 SARS-CoV-2 (COVID-19) RNA VENESSA+probe Ql (Unsp spec) Not detected Normal NOT DETECTED [facility] Comment on above: Result Comment: This test is not yet approved or cleared by the [place] FDA. When there are no FDA-approved or cleared tests available, and other criteria are met, FDA can make tests available under an emergency access mechanism called an Emergency Use Authorization (EUA). The EUA for this test is supported by the [place] of Health and Human Service's (HHS's) declaration [...] RP #### [facility] [address] [place] [address] Dr. Leni Hamlin INFLUENZA A AND B AGon 01-25 [facility] SEE BELOW Normal [facility] Comment on above: Result Comment: Nega tive for Flu A protein angiten. Infection due to Flu A cannot be ruled out. Flu A angiten in the sample may be below the detection limit of the test. Performed By: #### C RP #### [facility] [address] [place] [address] Dr. Leni Hamlin [facility] SEE BELOW Normal [facility] Comment on above: Result Comment: Nega tive for Flu B protein antigen. Infection due to Flu B cannot be ruled out. Flu B antigen in the sample may be below the detection limit of the test. Performed By: #### C RP #### [facility] [address] [place] [address] Dr. Leni Hamlin INFLUENZA A AG Negative Normal NEGATIVE SEE COMMENT [facility] Comment on above: Performed By: #### C RP #### [facility] [address] [place] [address] Dr. Leni Hamlin INFLUENZA B AG Negative Normal NEGATIVE SEE COMMENT [facility] Comment on above: Performed By: #### C RP #### [facility] [address] [place] [address] Dr. Leni Hamlin INTERNAL CONTROLS Within Normal Limits Normal Wi thin Normal Limits [facility] Comment on above: Performed By: #### C RP #### [facility] [address] [place] [address] Dr. Leni Hamlin COVID-19 Antigenon 2 COVID-19 [...] its performance Cindy Disclaimer characteristic determined by [employer] and Cindy Disclaimer validated at [facility]. This Cindy Disclaimer test has [...] is terminated or revoked sooner. PERFORMED BY: [place] [address] PATHOLOGIST SUPERVISOR [employer] ZOHAIB JEWELL M.D. Normal [facility] Comment on above: Performed By: #### C OVID-19 CINDY, SOFIANEG #### [facility] [address] [place] [address] Cindy Ag Negativeon 12-01-19 Cnidy Ag Negative Negative Normal Negative [facility] Comment on above: Result Comment: This is a duplicate Cindy SARS Antigen (JENNIFER) result to be used for statistical tracking purpose only. PERFORMED BY: [place] [address] PATHOLOGIST SUPERVISOR M[employer] ZOHAIB JEWELL M.D. Performed By: #### C OVID-19 CINDY, SOFIANEG #### [facility] [address] [place] [address] Encounters Encounter Date Encounter Type Care Provider Facility Start: 04-24-2024 End: 04-24-2024 ambulatory [facility] Start: 03-30-2024 End: 03-31-2024 ambulatory Urvashi Rawls MD Facility:[facility] Start: 03-23-2024 End: 03-23-2024 ambulatory [facility] Start: 03-02-2024 End: 03-03-2024 ambulatory Urvashi Rawls MD Facility:[facility] Start: 02-26-2024 End: 02-26-2024 ambulatory [facility] Start: 01-31-2024 End: 01-31-2024 ambulatory [facility] Start: 01-27-2024 End: 01-28-2024 ambulatory Urvashi Rawls MD Facility: [facility] Start: 12-30-2023 End: 12-31-2023 ambulatory Urvashi Rawls MD Facility:[facility] Start: 09-16-2023 End: 09-17-2023 ambulatory Urvashi Rawls MD Facility: [facility] Start: 08-27-2023 End: 08-27-2023 ambulatory [facility] Start: 07-09-2023 End: 07-09-2023 ambulatory [facility] Start: 06-24-2023 End: 06-25-2023 ambulatory Urvashi Rawls MD Facility: [facility] Start: 06-10-2023 End: 06-11-2023 ambulatory Urvashi Rawls MD Facility: [facility] Start: 05-27-2023 End: 05-28-2023 ambulatory Urvashi Rawls MD Facility: [facility] Start: 05-13-2023 End: 05-13-2023 ambulatory [facility] Start: 05-08-[address] [facility] Start: 01-16-2023 End: 01-16-[address] ELLIOT [...] Start: 03-22-2022 End: 03-23-2022 ambulatory MODESTO BECERRA Facility:[facility] Start: 03-20-2022 End: 03-21-[address] ELLIOT CHESTER . Facility:[facility] Start: 03-13-2022 End: 03-15-2022 Evaluation and management of inpatient DR ELLIOT CHESTER . Facility:[facility] Start: 01-25-2022 End: 01-25-2022 ambulatory GAGANDEEP PAREDES Facility: Payers Date Payer Category Payer Medicare 2022 Unknown 1959 Medicare [id number] 1959 Self-pay 1959 Unknown [id number] 1948 Unknown [id number] 2.16.8 40.1.745803.3.579.2.647 1948 Unknown [id number] 2.16.84 0.1.899692.3.579.2.593 1948 Unknown [id number] 2.16.84 0.1.351250.3.579.2.593 1948 Unknown [id number] 2.16.84 0.1.333734.3.579.2.593 1948 Unknown [id number] 2.16.84 0.1.830741.3.579.2.593 1948 Unknown [id number] 2.16.84 0.1.287612.3.579.2.593 1948 Unknown [id number] 2.16.84 0.1.985236.3.579.2.593 1948 Unknown [id number] 2.16.84 0.1.935085.3.579.2.593 1948 Unknown [id number] 2.16.84 0.1.198094.3.579.2.593 1948 Unknown [id number] 2.16.84 0.1.990769.3.579.2.593 1948 Unknown [id number] 2.16.84 0.1.718751.3.579.2.593 1948 Unknown [id number] 2.16.84 0.1.586844.3.579.2.593 1948 Unknown [id number] 2.16.84 0.1.322395.3.579.2.593 1948 Unknown [id number] 2.16.84 0.1.216072.3.579.2.593 1948 Unknown [id number] 2.16. 840.1.892832.3.579.2.196 1948 Unknown [id number] 2.16. 840.1.639220.3.579.2.196 1948 Unknown [id number] 2.16. 840.1.745853.3.579.2.196 1948 Unknown [id number] 2.16. 840.1.258896.3.579.2.196 1948 Unknown [id number] 2.16. 840.1.870775.3.579.2.196 1948 Unknown [id number] 2.16. 840.1.654309.3.579.2.196 1948 Unknown [id number] 2.16. 840.1.473436.3.579.2.196 1948 Unknown [id number] 2.16. 840.1.719949.3.579.2.196 Progress note 04-24-2024 Note Date & Type Note Facility 04-24-2024 Note MD Cardiology - [facility] Subjective Brian Oneal is a 74 [...] in February 2024 while admitted to the [facility]. He was started on Eliquis for anticoagulation given elevated [id number] score. He has been having episodes of blood in stools. He is status post pacemaker placement. He has peripheral vascular disease that is managed medically. He was recently evaluated by his primary coat finisher Dr. Major Monsalve and a stress test [...] Rate 03/22/2022 76 Atrial Rate 03/22/2022 76 OK Interval 03/22/2022 162 QRS DURATION 03/22/2022 144 QT Interval 03/22/2022 392 QTC CALCULATION(BAZETT) 03/22/2022 441 P [place] 03/22/2022 -14 R-[place] 03/22/2022 -20 T Wave [place] 03/22/2022 -6 Diagnosis 03/22/2022 Value:Normal sinus rhythm Right bundle branch block Abnormal ECG When compared with ECG of (more content not included)... [facility] note 01-31-2024 Note Date & Type Note Facility 01-31-2024 Note MD Cardiology Note [facility] Reason for visit: follow up for [...] was initiated by the patient and conducted dwd-mwxl-em-face with use of audio-only real time telephone [...] PVCs with bur (more content not included)... [facility] Progress note 08-27-2023 Note Date & Type [...] $70 for a 30 day supply at [facility]. Lipid profile was done in May 2023. [facility] Progress note 08-27-2023 Note Date & Type Note Facility 08-27-2023 Note MD Cardiology Note [facility] Reason for visit: follow up for [...] was initiated by the patient and conducted coh-aulx-rt-face with use of audio-only real time telephone [...] since his prost (more content not included)... [facility] note 05-13-2023 Note Date & Type Note Facility 05-13-2023 Note Patient here c/o LE numbness and pain during ambulation and standing. He had EMG and SAGAR's in March 2023. He sees Dr. Chester this afternoon. Recently saw neurosurgery and vascular surgery at [facility]. Dr. Quinonez started him on low dose aspirin and atorvastatin last week, which he states he has not started yet. He denies chest pain, SOB, and syncope. Review of Systems Constitutional: Positive for malaise/fatigue. Cardiovascular: Positive for claudication and leg swelling. Musculoskeletal: Positive for arthritis, back pain, muscle weakness and myalgias. All other systems reviewed and are negative. [facility] Progress note 05-13-2023 Note Date & Type Note Facility 05-13-2023 Note MD Cardiology Note [facility] Reason for visit: lower extremity claudication [...] was initiated by the patient and conducted ohc-orfb-uv-face with use of audio-only real time telephone [...] times (more content not included)... [facility] note 05-08-2023 Note Date & Type [...] him in about 3 months. [facility] note 05-08-2023 Note Date & Type [...] aspirin (more content not included)... [facility] Clinical Note 03-23-2022 Note Date & Type [...] by: ALONSO MASON Date: 2022-03-23 12:58 [facility] Summary Purpose Family History No Family History [...] section and content) DATE CREATED AUTHOR 01/29/2022 [facility] DATE CREATED AUTHOR AUTHOR'S ORGANIZ ATION 04/23/2022 [facility] DATE CREATED AUTHOR AUTHOR'S ORGANIZ ATION 01/18/2023 [facility] DATE CREATED AUTHOR AUTHOR'S ORGANIZ ATION 04/05/2024 [facility] DATE CREATED AUTHOR AUTHOR'S ORGANIZ ATION 04/26/2024 [facility] FOR RECORDS PERTAINING TO PATIENTS WHO ARE [...] BE BASED ON THE PRIMARY CLINICAL RECORDS. [facility] [employer] provides no warranty or guarantee of the accuracy or completeness of information in this document.
[2024-05-07] MEDS: REGADENOSON 0.4 MG/5 ML SYRINGE 0.400000000000000022 MG IV (09:12)
--- NOTE | 2024-05-07 09:22 | PC.NURSE ---
Nursing Note Cardiac Stress Test Reviewed: Medication, allergies and patient history reviewed. Stress Test: [ x] Patient tolerated stress test well. [ ] Patient unable to tolerate walking on treadmill. Switched to Lexiscan stress test. [ x] No chest pain noted per patient [ ] Chest pain that resolved prior to leaving stress lab. [x ] No dyspnea noted. [ ] Dyspnea that resolved prior to leaving stress lab. [ x] Patient left stress lab asymptomatic and hemodynamically stable. [ ] Patient taken to the Emergency Room due to non-resolving symptoms following stress test. [ ] Patient achieved target heart rate. [ ] Patient unable to achieve target heart rate. [ ] Aminophylline administered as reversal agent to Lexiscan (Regadenoson). [ ] Nitro administered. Nursing Comments:Pt had Lexiscan stress test done. No issues noted. Pt had no symptoms. Pt left stress lab in no distress and with no complaints. Pt was taken to the cafeteria for breakfast prior to last set of scans.
== END 2024-05-07 07:01 | disposition home or self-care (01) ==
LOC: NM 07:00
PROVIDERS: PCP Family Medicine; Visit Provider Internal Medicine Cardiovascular Disease
DX: R07.89 Other chest pain (principal)
CPT/HCPCS: 78452; 93017; A9500; J2785

== ENCOUNTER 2024-05-08 13:07 | Outpatient (OUT) | payer MEDICARE, OTHER, SELFPAY ==
--- OUTSIDE RECORDS SUMMARY | 2024-05-08 13:28 | XMS_ITS | CCD ---
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 Role Phone MODESTO BECERRA [...] Azithromycin; Translations: [AZITHROMYCIN] Drug Allergy 03-22-2022 [facility] Repository (2 sources) Azithromycin Drug Allergy 03-03-2015 [facility] Repository (1 source) Ciprofloxacin Drug Allergy 12-18-2022 [facility] Repository Problems Active Problems Problem Classification Problem [...] Episodic Other aftercare (1 source) Other care home (current) drug therapy; Translations: [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] Onset: 03-19-2022 Episodic Pneumonia [...] Range Facility Office Visiton 04-24-2024 Follow-up visit [id number] Wayne Oneal A 1950 M Date Provider Department Center 04/24/2024 367-ELODIA LITTLE RAMAKRISHNA Lucero Family History Problem Relation Age of Onset Coronary artery disease Mother Family Status - Relation Status Age at Mother Level of Service:30856 [place] OFFICE/OUTPATIENT ESTABLISHED HIGH MDM 40 MIN Normal [facility] Office Visiton 01-31-2024 Follow-up visit [id number] Wayne Oneal A 1950 M Date Provider Department Center 01/31/2024 MAJOR ALMEIDA RAMAKRISHNA Lucero Family History Problem Relation Age of Onset Coronary artery disease Mother Family Status - Relation Status Age at Mother Level of Service:97114 [place] OFFICE/OUTPATIENT ESTABLISHED LOW MDM 20 MIN Normal [facility] Office Visiton 08-27-2023 Follow-up visit [id number] Wayne Oneal A 1950 M Date Provider Department Center 08/27/2023 MAJOR ALMEIDA Family History Problem Relation Age of Onset Coronary artery disease Mother Family Status - Relation Status Age at Mother Level of Service:90511 [place] OFFICE/OUTPATIENT ESTABLISHED LOW MDM 20-29 MIN Normal [facility] Office Visiton 05-13-2023 Follow-up visit [id number] Wayne Oneal A 1950 M Date Provider Department Center 05/13/2023 MAJOR ALMEIDA Family History Problem Relation Age of Onset Coronary artery disease Mother Family Status - Relation Status Age at Mother Level of Service:31140 [place] OFFICE/OUTPATIENT ESTABLISHED MOD MDM 30-39 MIN Normal [facility] Orders Onlyon 05-13-2023 Orders Only [id number] Wayne Oneal A 1950 Date Provider Department Center 05/13/2023 BRAYAN AGUDELO [facility] Family History Problem Relation Age of Onset Coronary artery disease Mother Family Status - Relation Status Age at Mother Normal [facility] 29on 05-08-2023 29 Addended by: LEANA HENNING on: 05/09/2023 01:46 PM Modules accepted: Orders Normal [facility] Consulton 05-08-2023 Consult [id number] Wayne Oneal A 1950 Date Provider Department Center 05/08/2023 JOSE COX HVCVASENDJordi [facility] Family History Problem Relation Age of Onset Coronary artery disease Mother Family Status - Relation Status Age at Mother Level of Service:81587 [place] OFFICE/OUTPATIENT NEW MODERATE MDM 45-59 MINUTES Reason for Visit and Comments: New Patient [632] - Numbness in bilateral legs Normal [facility] Covid-19 PCR (CVDTB)on SARS-CoV-2 (COVID-19) RNA VENESSA+probe Ql (Unsp spec) Not detected Normal NOT DETECTED [facility] Comment on above: Result Comment: When diagnostic [...] for this test is supported by the [place] of Health and Human Service's declaration that [...] Performed By: #### B MP, BNP #### [facility] [address] [place] [address] Dr. Leni Hamlin INFLUENZA A AND B [facility] 01-16 [facility] SEE BELOW Normal [facility] Comment on above: Result Comment: Nega tive for Flu A protein angiten. Infection due to Flu A cannot be ruled out. Flu A angiten in the sample may be below the detection limit of the test. Performed By: #### C RP #### [facility] [address] [place] [address] Dr. Leni Ham[facility] Normal [facility] Comment on above: Result Comment: Nega tive for Flu B protein antigen. Infection due to Flu B cannot be ruled out. Flu B antigen in the sample may be below the detection limit of the test. Performed By: #### C RP #### [facility] [address] [place] [address] Dr. Leni Hamlin INFLUENZA A AG Negative Normal NEGATIVE SEE COMMENT [facility] Comment on above: Performed By: #### C RP #### [facility] [address] [place] [address] Dr. Leni Hamlin INFLUENZA B AG Negative Normal NEGATIVE SEE COMMENT [facility] Comment on above: Performed By: #### C RP #### [facility] [address] [place] [address] LSPINE WO CONon 3 CT LSPINE WO CON EXAMINATION: CT LSMEQUON WO CON, 12/18/2022 3:26 PM EST HISTORY: [...] CIERA HERNÁNDEZ Date: 2022-12-18 15:56 Normal [facility] CBC AUTO DIFFon 10-03-2022 BASO # 0.1 103/ul Normal 0.0-0.1 [facility] Comment on above: Performed By: #### B MP, BNP #### [facility] [address] [address] [address] Leni Hamlin Basophils/100 WBC (Bld) 0.5 % Normal 0.2-2.0 [facility] Comment on above: Performed By: #### B MP, BNP #### [facility] [address] [place] [address] Dr. Leni Hamlin EO # 0.3 103/ul Normal 0.0-0.7 [facility] Comment on above: Performed By: #### B MP, BNP #### [facility] [address] [place] [address] Dr. Leni Hamlin Eosinophils/100 WBC (Bld) 2.2 % Normal 0.9-7.0 [facility] Comment on above: Performed By: #### B MP, BNP #### [facility] [address] [place] [address] Dr. Leni Hamlin Erythrocyte distribution width (RBC) [Ratio] 13.3 % Normal 11.0-15.0 [facility] Comment on above: Performed By: #### B MP, BNP #### [facility] [address] [place] [address] Dr. Leni Hamlin Hematocrit (Bld) [Volume fraction] 46.9 % Normal 42.0-54.0 [facility] Comment on above: Performed By: #### B MP, BNP #### [facility] [address] [place] [address] Dr. Leni Hamlin Hemoglobin (Bld) [Mass/Vol] 15.3 g/dL Normal 14.0-18.0 [facility] Comment on above: Performed By: #### B MP, BNP #### [facility] [address] [place] [address] Dr. Leni Hamlin IG # 0.18 10e3/ul Critically high 0.00-0.03 [facility] Comment on above: Performed By: #### B MP, BNP #### [facility] [address] [place] [address] Dr. Leni Hamlin IG % 1.3 % Critically high 0.0-0.5 [facility] Comment on above: Performed By: #### B MP, BNP #### [facility] [address] [place] [address] Dr. Leni Hamlin LYMPH # 1.9 103/ul Normal 1.2-3.8 [facility] Comment on above: Performed By: #### B MP, BNP #### [facility] [address] [place] [address] Dr. Leni Hamlin Lymphocytes/100 WBC (Bld) 13.6 % Critically low 20.5-60.0 [facility] Comment on above: Performed By: #### B MP, BNP #### [facility] [address] [place] [address] Dr. Leni Hamlin MANUAL DIFF REQ NO Normal [facility] Comment on above: Performed By: #### B MP, BNP #### [facility] [address] [place] [address] Dr. Leni Hamlin MCH (RBC) [Entitic mass] 29.2 pg Normal 25.9-34.0 [facility] Comment on above: Performed By: #### B MP, BNP #### [facility] [address] [place] [address] Dr. Leni Hamlin MCHC (RBC) [Mass/Vol] 32.6 g/dL Normal 29.9-35.2 [facility] Comment on above: Performed By: #### B MP, BNP #### [facility] [address] [place] [address] Dr. Leni Hamlin MCV (RBC) [Entitic vol] 89.5 fL Normal 80.0-94.0 [facility] Comment on above: Performed By: #### B MP, BNP #### [facility] [address] [place] [address] Dr. Leni Hamlin MONO # 0.9 103/ul Critically high 0.3-0.8 [facility] Comment on above: Performed By: #### B MP, BNP #### [facility] [address] [place] [address] Dr. Leni Hamlin Monocytes/100 WBC (Bld) 6.6 % Normal 1.7-12.0 [facility] Comment on above: Performed By: #### B MP, BNP #### [facility] [address] [place] [address] Dr. Leni Hamlin NEUT # 10.4 103/ul Critically high 1.4-6.5 [facility] Comment on above: Performed By: #### B MP, BNP #### [facility] [address] [address] [address] Leni Hamlin Neutrophils/100 WBC (Bld) 75.8 % Critically high 43.0-75.0 [facility] Comment on above: Performed By: #### B MP, BNP #### [facility] [address] [address] [address] Leni Hamlin Platelet mean volume (Bld) [Entitic vol] 10.6 fL Normal 9.5-13.5 [facility] Comment on above: Performed By: #### B MP, BNP #### [facility] [address] [place] [address] Dr. Leni Hamlin PLT 143 103/ul Critically low 150-450 [facility] Comment on above: Performed By: #### B MP, BNP #### [facility] [address] [place] [address] Dr. Leni Hamlin RBC 5.24 106/ul Normal 4.70-6.10 [facility] Comment on above: Performed By: #### B MP, BNP #### [facility] [address] [place] [address] Dr. Leni Hamlin WBC 13.7 103/ul Critically high 4.0-11.0 [facility] Comment on above: Performed By: #### B MP, BNP #### [facility] [address] [place] [address] Dr. Leni Hamlin CRPon 10-03-2022 CRP 7.6 mg/dL Critically high <=1.0 [facility] Comment on above: Performed By: #### C MP, CRP #### [facility] [address] [place] [address] Dr. Leni Hamlin PROF 14(COMP METB)on 022 Albumin [Mass/Vol] 2.5 g/dL Critically low 3.4-5.0 [facility] Comment on above: Performed By: #### C MP, CRP #### [facility] [address] [address] [address] Leni Hamlin Albumin/Globulin [Mass ratio] 0.7 {ratio} Normal [facility] Comment on above: Performed By: #### C MP, CRP #### [facility] [address] [address] [address] Leni Hamlin ALP [Catalytic activity/Vol] 54 U/L Normal 46-116 [facility] Comment on above: Performed By: #### C MP, CRP #### [facility] [address] [address] [address] Leni Hamlin ALT [Catalytic activity/Vol] 11 U/L Critically low 16-63 [facility] Comment on above: Performed By: #### C MP, CRP #### [facility] [address] [address] [address] Leni Hamlin Anion gap [Moles/Vol] 8.8 mmol/L Normal [facility] Comment on above: Performed By: #### C MP, CRP #### [facility] [address] [address] [address] Leni Hamlin AST [Catalytic activity/Vol] 9 U/L Critically low 15-37 [facility] Comment on above: Performed By: #### C MP, CRP #### [facility] [address] [address] [address] Leni Hamlin Bilirubin [Mass/Vol] 0.3 mg/dL Normal 0.2-1.0 [facility] Comment on above: Performed By: #### C MP, CRP #### [facility] [address] [address] [address] Leni Hamlin Calcium [Mass/Vol] 8.6 mg/dL Normal 8.5-10.1 [facility] Comment on above: Performed By: #### C MP, CRP #### [facility] [address] [address] [address] Leni Hamlin Chloride [Moles/Vol] 103 mmol/L Normal 98-107 [facility] Comment on above: Performed By: #### C MP, CRP #### [facility] [address] [address] [address] Leni Hamlin CO2 [Moles/Vol] 29.2 mmol/L Normal 21.0-32.0 [facility] Comment on above: Performed By: #### C MP, CRP #### [facility] [address] [address] [address] Leni Hamlin Creatinine [Mass/Vol] 1.20 mg/dL Normal 0.70-1.30 [facility] Comment on above: Performed By: #### C MP, CRP #### [facility] [address] [address] [address] Leni Hamlin EGFR-AF SALVADOREAN >60 Normal >=60 [facility] Comment on above: Performed By: #### C MP, CRP #### [facility] [address] [address] [address] Leni Hamlin EGFR-NON AF SALVADOREAN 59 mL/min/1.73m2 Critically low >=60 [facility] Comment on above: Performed By: #### C MP, CRP #### [facility] [address] [address] [address] Leni Hamlin Globulin (S) [Mass/Vol] 3.4 g/dL Normal [facility] Comment on above: Performed By: #### C MP, CRP #### [facility] [address] [address] [address] Leni Hamlin Glucose [Mass/Vol] 108 mg/dL Critically high 74-106 [facility] Comment on above: Performed By: #### C MP, CRP #### [facility] [address] [address] [address] Leni Hamlin Potassium [Moles/Vol] 4.0 mmol/L Normal 3.5-5.1 [facility] Comment on above: Performed By: #### C MP, CRP #### [facility] [address] [address] [address] Leni Hamlin Protein [Mass/Vol] 5.9 g/dL Critically low 6.4-8.2 [facility] Comment on above: Performed By: #### C MP, CRP #### [facility] [address] [place] [address] Dr. Leni Hamlin Sodium [Moles/Vol] 137 mmol/L Normal 136-145 [facility] Comment on above: Performed By: #### C MP, CRP #### [facility] [address] [place] [address] Dr. Leni Hamlin Urea nitrogen [Mass/Vol] 15.0 mg/dL Normal 7.0-18.0 [facility] Comment on above: Performed By: #### C MP, CRP #### [facility] [address] [place] [address] Dr. Leni Hamlin Urea nitrogen/Creatinine [Mass ratio] 12.5 mg/mg Normal [facility] Comment on above: Performed By: #### C MP, CRP #### [facility] [address] [place] [address] Dr. Leni Hamlin CBC AUTO DIFFon 10-02-2022 BASO # 0.1 103/ul Normal 0.0-0.1 [facility] Comment on above: Performed By: #### C MP, CRP #### [facility] [address] [place] [address] Dr. Leni Hamlin Basophils/100 WBC (Bld) 0.5 % Normal 0.2-2.0 [facility] Comment on above: Performed By: #### C MP, CRP #### [facility] [address] [place] [address] Dr. Leni Hamlin EO # 0.2 103/ul Normal 0.0-0.7 [facility] Comment on above: Performed By: #### C MP, CRP #### [facility] [address] [place] [address] Dr. Leni Hamlin Eosinophils/100 WBC (Bld) 1.6 % Normal 0.9-7.0 [facility] Comment on above: Performed By: #### C MP, CRP #### [facility] [address] [place] [address] Dr. Leni Hamlin Erythrocyte distribution width (RBC) [Ratio] 13.4 % Normal 11.0-15.0 [facility] Comment on above: Performed By: #### C MP, CRP #### [facility] [address] [place] [address] Dr. Leni Hamlin Hematocrit (Bld) [Volume fraction] 46.6 % Normal 42.0-54.0 [facility] Comment on above: Performed By: #### C MP, CRP #### [facility] [address] [place] [address] Dr. Leni Hamlin Hemoglobin (Bld) [Mass/Vol] 15.1 g/dL Normal 14.0-18.0 [facility] Comment on above: Performed By: #### C MP, CRP #### [facility] [address] [place] [address] Dr. Leni Hamlin IG # 0.21 10e3/ul Critically high 0.00-0.03 [facility] Comment on above: Performed By: #### C MP, CRP #### [facility] [address] [place] [address] Dr. Leni Hamlin IG % 1.4 % Critically high 0.0-0.5 [facility] Comment on above: Performed By: #### C MP, CRP #### [facility] [address] [place] [address] Dr. Leni Hamlin LYMPH # 1.9 103/ul Normal 1.2-3.8 [facility] Comment on above: Performed By: #### C MP, CRP #### [facility] [address] [place] [address] Dr. Leni Hamlin Lymphocytes/100 WBC (Bld) 12.4 % Critically low 20.5-60.0 [facility] Comment on above: Performed By: #### C MP, CRP #### [facility] [address] [place] [address] Dr. Leni Hamlin MANUAL DIFF REQ NO Normal [facility] Comment on above: Performed By: #### C MP, CRP #### [facility] [address] [place] [address] Dr. Leni Hamlin MCH (RBC) [Entitic mass] 28.9 pg Normal 25.9-34.0 [facility] Comment on above: Performed By: #### C MP, CRP #### [facility] [address] [place] [address] Dr. Leni Hamlin MCHC (RBC) [Mass/Vol] 32.4 g/dL Normal 29.9-35.2 [facility] Comment on above: Performed By: #### C MP, CRP #### [facility] [address] [place] [address] Dr. Leni Hamlin MCV (RBC) [Entitic vol] 89.3 fL Normal 80.0-94.0 [facility] Comment on above: Performed By: #### C MP, CRP #### [facility] [address] [place] [address] Dr. Leni Hamlin MONO # 1.1 103/ul Critically high 0.3-0.8 [facility] Comment on above: Performed By: #### C MP, CRP #### [facility] [address] [place] [address] Dr. Leni Hamlin Monocytes/100 WBC (Bld) 6.9 % Normal 1.7-12.0 [facility] Comment on above: Performed By: #### C MP, CRP #### [facility] [address] [place] [address] Dr. Leni Hamlin NEUT # 11.8 103/ul Critically high 1.4-6.5 [facility] Comment on above: Performed By: #### C MP, CRP #### [facility] [address] [place] [address] Dr. Leni Hamlin Neutrophils/100 WBC (Bld) 77.2 % Critically high 43.0-75.0 [facility] Comment on above: Performed By: #### C MP, CRP #### [facility] [address] [place] [address] Dr. Leni Hamlin Platelet mean volume (Bld) [Entitic vol] 10.5 fL Normal 9.5-13.5 [facility] Comment on above: Performed By: #### C MP, CRP #### [facility] [address] [place] [address] Dr. Leni Hamlin PLT 138 103/ul Critically low 150-450 [facility] Comment on above: Performed By: #### C MP, CRP #### [facility] [address] [place] [address] Dr. Leni Hamlin RBC 5.22 106/ul Normal 4.70-6.10 [facility] Comment on above: Performed By: #### C MP, CRP #### [facility] [address] [place] [address] Dr. Leni Hamlin WBC 15.3 103/ul Critically high 4.0-11.0 [facility] Comment on above: Performed By: #### C MP, CRP #### [facility] [address] [place] [address] Dr. Leni Hamlin CRPon 10-02-2022 CRP 13.7 mg/dL Critically high <=1.0 [facility] Comment on above: Performed By: #### C VDAGS #### [facility] [address] [place] [address] Dr. Leni Hamlin PROF 14(COMP METB)on 022 Albumin [Mass/Vol] 2.5 g/dL Critically low 3.4-5.0 [facility] Comment on above: Performed By: #### C VDAGS #### [facility] [address] [place] [address] Dr. Leni Hamlin Albumin/Globulin [Mass ratio] 0.8 {ratio} Normal [facility] Comment on above: Performed By: #### C VDAGS #### [facility] [address] [place] [address] Dr. Leni Hamlin ALP [Catalytic activity/Vol] 54 U/L Normal 46-116 [facility] Comment on above: Performed By: #### C VDAGS #### [facility] [address] [place] [address] Dr. Leni Hamlin ALT [Catalytic activity/Vol] 13 U/L Critically low 16-63 [facility] Comment on above: Performed By: #### C VDAGS #### [facility] [address] [place] [address] Dr. Leni Hamlin Anion gap [Moles/Vol] 10.6 mmol/L Normal [facility] Comment on above: Performed By: #### C VDAGS #### [facility] [address] [address] [address] Leni Hamlin AST [Catalytic activity/Vol] 9 U/L Critically low 15-37 [facility] Comment on above: Performed By: #### C VDAGS #### [facility] [address] [address] [address] Leni Hamlin Bilirubin [Mass/Vol] 0.3 mg/dL Normal 0.2-1.0 [facility] Comment on above: Performed By: #### C VDAGS #### [facility] [address] [place] [address] Dr. Leni Hamlin Calcium [Mass/Vol] 8.5 mg/dL Normal 8.5-10.1 [facility] Comment on above: Performed By: #### C VDAGS #### [facility] [address] [place] [address] Dr. Leni Hamlin Chloride [Moles/Vol] 104 mmol/L Normal 98-107 [facility] Comment on above: Performed By: #### C VDAGS #### [facility] [address] [place] [address] Dr. Leni Hamlin CO2 [Moles/Vol] 27.5 mmol/L Normal 21.0-32.0 [facility] Comment on above: Performed By: #### C VDAGS #### [facility] [address] [place] [address] Dr. Leni Hamlin Creatinine [Mass/Vol] 1.26 mg/dL Normal 0.70-1.30 [facility] Comment on above: Performed By: #### C VDAGS #### [facility] [address] [place] [address] Dr. Leni Hamlin EGFR-AF SALVADOREAN >60 Normal >=60 [facility] Comment on above: Performed By: #### C VDAGS #### [facility] [address] [place] [address] Dr. Leni Hamlin EGFR-NON AF [place]VADOREAN 56 mL/min/1.73m2 Critically low >=60 [facility] Comment on above: Performed By: #### C VDAGS #### [facility] [address] [address] [address] Leni Hamlin Globulin (S) [Mass/Vol] 3.3 g/dL Normal [facility] Comment on above: Performed By: #### C VDAGS #### [facility] [address] [address] [address] Leni Hamlin Glucose [Mass/Vol] 122 mg/dL Critically high 74-106 [facility] Comment on above: Performed By: #### C VDAGS #### [facility] [address] [place] [address] Dr. Leni Hamlin Potassium [Moles/Vol] 4.1 mmol/L Normal 3.5-5.1 [facility] Comment on above: Performed By: #### C VDAGS #### [facility] [address] [place] [address] Dr. Leni Hamlin Protein [Mass/Vol] 5.8 g/dL Critically low 6.4-8.2 [facility] Comment on above: Performed By: #### C VDAGS #### [facility] [address] [place] [address] Dr. Leni Hamlin Sodium [Moles/Vol] 138 mmol/L Normal 136-145 [facility] Comment on above: Performed By: #### C VDAGS #### [facility] [address] [place] [address] Dr. Leni Hamlin Urea nitrogen [Mass/Vol] 20.0 mg/dL Critically high 7.0-18.0 [facility] Comment on above: Performed By: #### C VDAGS #### [facility] [address] [place] [address] Dr. Leni Hamlin Urea nitrogen/Creatinine [Mass ratio] 15.9 mg/mg Normal [facility] Comment on above: Performed By: #### C VDAGS #### [facility] [address] [place] [address] Dr. Leni Hamlin CBC AUTO DIFFon 10-01-2022 BASO # 0.1 103/ul Normal 0.0-0.1 [facility] Comment on above: Performed By: #### C MP, CRP #### [facility] [address] [place] [address] Dr. Leni Hamlin Basophils/100 WBC (Bld) 0.3 % Normal 0.2-2.0 [facility] Comment on above: Performed By: #### C MP, CRP #### [facility] [address] [place] [address] Dr. Leni Hamlin EO # 0.2 103/ul Normal 0.0-0.7 [facility] Comment on above: Performed By: #### C MP, CRP #### [facility] [address] [place] [address] Dr. Leni Hamlin Eosinophils/100 WBC (Bld) 0.8 % Critically low 0.9-7.0 [facility] Comment on above: Performed By: #### C MP, CRP #### [facility] [address] [place] [address] Dr. Leni Hamlin Erythrocyte distribution width (RBC) [Ratio] 13.6 % Normal 11.0-15.0 [facility] Comment on above: Performed By: #### C MP, CRP #### [facility] [address] [place] [address] Dr. Leni Hamlin Hematocrit (Bld) [Volume fraction] 49.0 % Normal 42.0-54.0 [facility] Comment on above: Performed By: #### C MP, CRP #### [facility] [address] [place] [address] Dr. Leni Hamlin Hemoglobin (Bld) [Mass/Vol] 16.0 g/dL Normal 14.0-18.0 [facility] Comment on above: Performed By: #### C MP, CRP #### [facility] [address] [place] [address] Dr. Leni Hamlin IG # 0.24 10e3/ul Critically high 0.00-0.03 [facility] Comment on above: Performed By: #### C MP, CRP #### [facility] [address] [address] [address] Leni Hamlin IG % 1.2 % Critically high 0.0-0.5 [facility] Comment on above: Performed By: #### C MP, CRP #### [facility] [address] [address] [address] Leni Hamlin LYMPH # 1.6 103/ul Normal 1.2-3.8 [facility] Comment on above: Performed By: #### C MP, CRP #### [facility] [address] [address] [address] Leni Hamlin Lymphocytes/100 WBC (Bld) 8.0 % Critically low 20.5-60.0 [facility] Comment on above: Performed By: #### C MP, CRP #### [facility] [address] [address] [address] Leni Hamlin MANUAL DIFF REQ NO Normal [facility] Comment on above: Performed By: #### C MP, CRP #### [facility] [address] [address] [address] Leni Hamlin MCH (RBC) [Entitic mass] 29.4 pg Normal 25.9-34.0 [facility] Comment on above: Performed By: #### C MP, CRP #### [facility] [address] [address] [address] Leni Hamlin MCHC (RBC) [Mass/Vol] 32.7 g/dL Normal 29.9-35.2 [facility] Comment on above: Performed By: #### C MP, CRP #### [facility] [address] [address] [address] Leni Hamlin MCV (RBC) [Entitic vol] 90.1 fL Normal 80.0-94.0 [facility] Comment on above: Performed By: #### C MP, CRP #### [facility] [address] [address] [address] Leni Hamlin MONO # 1.0 103/ul Critically high 0.3-0.8 [facility] Comment on above: Performed By: #### C MP, CRP #### [facility] [address] [address] [address] Leni Hamlin Monocytes/100 WBC (Bld) 5.1 % Normal 1.7-12.0 [facility] Comment on above: Performed By: #### C MP, CRP #### [facility] [address] [address] [address] Leni Hamlin NEUT # 16.8 103/ul Critically high 1.4-6.5 [facility] Comment on above: Performed By: #### C MP, CRP #### [facility] [address] [place] [address] Dr. Leni Hamlin Neutrophils/100 WBC (Bld) 84.6 % Critically high 43.0-75.0 [facility] Comment on above: Performed By: #### C MP, CRP #### [facility] [address] [place] [address] Dr. Leni Hamlin Platelet mean volume (Bld) [Entitic vol] 9.7 fL Normal 9.5-13.5 [facility] Comment on above: Performed By: #### C MP, CRP #### [facility] [address] [place] [address] Dr. Leni Hamlin PLT 138 103/ul Critically low 150-450 [facility] Comment on above: Performed By: #### C MP, CRP #### [facility] [address] [place] [address] Dr. Leni Hamlin RBC 5.44 106/ul Normal 4.70-6.10 [facility] Comment on above: Performed By: #### C MP, CRP #### [facility] [address] [place] [address] Dr. Leni Hamlin WBC 19.8 103/ul Critically high 4.0-11.0 [facility] Comment on above: Performed By: #### C MP, CRP #### [facility] [address] [place] [address] Dr. Leni Hamlin BASO # 0.1 103/ul Normal 0.0-0.1 [facility] Comment on above: Performed By: #### B MP, BNP #### [facility] [address] [place] [address] Dr. Leni Hamlin Basophils/100 WBC (Bld) 0.3 % Normal 0.2-2.0 [facility] Comment on above: Performed By: #### B MP, BNP #### [facility] [address] [place] [address] Dr. Leni Hamlin EO # 0.1 103/ul Normal 0.0-0.7 [facility] Comment on above: Performed By: #### B MP, BNP #### [facility] [address] [place] [address] Dr. Leni Hamlin Eosinophils/100 WBC (Bld) 0.7 % Critically low 0.9-7.0 [facility] Comment on above: Performed By: #### B MP, BNP #### [facility] [address] [place] [address] Dr. Leni Hamlin Erythrocyte distribution width (RBC) [Ratio] 13.6 % Normal 11.0-15.0 [facility] Comment on above: Performed By: #### B MP, BNP #### [facility] [address] [place] [address] Dr. Leni Hamlin Hematocrit (Bld) [Volume fraction] 46.9 % Normal 42.0-54.0 [facility] Comment on above: Performed By: #### B MP, BNP #### [facility] [address] [place] [address] Dr. Leni Hamlin Hemoglobin (Bld) [Mass/Vol] 15.5 g/dL Normal 14.0-18.0 [facility] Comment on above: Performed By: #### B MP, BNP #### [facility] [address] [place] [address] Dr. Leni Hamlin IG # 0.16 10e3/ul Critically high 0.00-0.03 [facility] Comment on above: Performed By: #### B MP, BNP #### [facility] [address] [place] [address] Dr. Leni Hamlin IG % 0.9 % Critically high 0.0-0.5 [facility] Comment on above: Performed By: #### B MP, BNP #### [facility] [address] [place] [address] Dr. Leni Hamlin LYMPH # 1.8 103/ul Normal 1.2-3.8 [facility] Comment on above: Performed By: #### B MP, BNP #### [facility] [address] [place] [address] Dr. Leni Hamlin Lymphocytes/100 WBC (Bld) 9.7 % Critically low 20.5-60.0 [facility] Comment on above: Performed By: #### B MP, BNP #### [facility] [address] [place] [address] Dr. Leni Hamlin MANUAL DIFF REQ NO Normal [facility] Comment on above: Performed By: #### B MP, BNP #### [facility] [address] [place] [address] Dr. Leni Hamlin MCH (RBC) [Entitic mass] 29.2 pg Normal 25.9-34.0 [facility] Comment on above: Performed By: #### B MP, BNP #### [facility] [address] [place] [address] Dr. Leni Hamlin MCHC (RBC) [Mass/Vol] 33.0 g/dL Normal 29.9-35.2 [facility] Comment on above: Performed By: #### B MP, BNP #### [facility] [address] [place] [address] Dr. Leni Hamlin MCV (RBC) [Entitic vol] 88.3 fL Normal 80.0-94.0 [facility] Comment on above: Performed By: #### B MP, BNP #### [facility] [address] [place] [address] Dr. Leni Hamlin MONO # 1.4 103/ul Critically high 0.3-0.8 [facility] Comment on above: Performed By: #### B MP, BNP #### [facility] [address] [place] [address] Dr. Leni Hamlin Monocytes/100 WBC (Bld) 7.3 % Normal 1.7-12.0 [facility] Comment on above: Performed By: #### B MP, BNP #### [facility] [address] [place] [address] Dr. Leni Hamlin NEUT # 15.1 103/ul Critically high 1.4-6.5 [facility] Comment on above: Performed By: #### B MP, BNP #### [facility] [address] [place] [address] Dr. Leni Hamlin Neutrophils/100 WBC (Bld) 81.1 % Critically high 43.0-75.0 [facility] Comment on above: Performed By: #### B MP, BNP #### [facility] [address] [place] [address] Dr. Leni Hamlin Platelet mean volume (Bld) [Entitic vol] 10.0 fL Normal 9.5-13.5 [facility] Comment on above: Performed By: #### B MP, BNP #### [facility] [address] [place] [address] Dr. Leni Hamlin PLT 141 103/ul Critically low 150-450 [facility] Comment on above: Performed By: #### B MP, BNP #### [facility] [address] [place] [address] Dr. Leni Hamlin RBC 5.31 106/ul Normal 4.70-6.10 [facility] Comment on above: Performed By: #### B MP, BNP #### [facility] [address] [place] [address] Dr. Leni Hamlin WBC 18.7 103/ul Critically high 4.0-11.0 [facility] Comment on above: Performed By: #### B MP, BNP #### [facility] [address] [place] [address] Dr. Leni Hamlin CRPon 10-01-2022 CRP 16.0 mg/dL Critically high <=1.0 [facility] Comment on above: Performed By: #### C VDAGS #### [facility] [address] [address] [address] Leni Hamlin PROF 14(COMP METB)on 022 Albumin [Mass/Vol] 2.6 g/dL Critically low 3.4-5.0 [facility] Comment on above: Performed By: #### C MP, CRP #### [facility] [address] [place] [address] Dr. Leni Hamlin Albumin/Globulin [Mass ratio] 0.8 {ratio} Normal [facility] Comment on above: Performed By: #### C MP, CRP #### [facility] [address] [place] [address] Dr. Leni Hamlin ALP [Catalytic activity/Vol] 44 U/L Critically low 46-116 [facility] Comment on above: Performed By: #### C MP, CRP #### [facility] [address] [place] [address] Dr. Leni Hamlin ALT [Catalytic activity/Vol] 12 U/L Critically low 16-63 [facility] Comment on above: Performed By: #### C MP, CRP #### [facility] [address] [place] [address] Dr. Leni Hamlin Anion gap [Moles/Vol] 8.7 mmol/L Normal [facility] Comment on above: Performed By: #### C MP, CRP #### [facility] [address] [place] [address] Dr. Leni Hamlin AST [Catalytic activity/Vol] 10 U/L Critically low 15-37 [facility] Comment on above: Performed By: #### C MP, CRP #### [facility] [address] [place] [address] Dr. Leni Hamlin Bilirubin [Mass/Vol] 0.8 mg/dL Normal 0.2-1.0 [facility] Comment on above: Performed By: #### C MP, CRP #### [facility] [address] [place] [address] Dr. Leni Hamlin Calcium [Mass/Vol] 8.3 mg/dL Critically low 8.5-10.1 [facility] Comment on above: Performed By: #### C MP, CRP #### [facility] [address] [address] [address] Leni Hamlin Chloride [Moles/Vol] 103 mmol/L Normal 98-107 [facility] Comment on above: Performed By: #### C MP, CRP #### [facility] [address] [address] [address] Leni Hamlin CO2 [Moles/Vol] 28.2 mmol/L Normal 21.0-32.0 [facility] Comment on above: Performed By: #### C MP, CRP #### [facility] [address] [address] [address] Leni Hamlin Creatinine [Mass/Vol] 1.24 mg/dL Normal 0.70-1.30 [facility] Comment on above: Performed By: #### C MP, CRP #### [facility] [address] [place] [address] Dr. Leni Hamlin EGFR-AF SALVADOREAN >60 Normal >=60 [facility] Comment on above: Performed By: #### C MP, CRP #### [facility] [address] [address] [address] Leni Hamlin EGFR-NON AF SALVADOREAN 57 mL/min/1.73m2 Critically low >=60 [facility] Comment on above: Performed By: #### C MP, CRP #### [facility] [address] [place] [address] Dr. Leni Hamlin Globulin (S) [Mass/Vol] 3.2 g/dL Normal [facility] Comment on above: Performed By: #### C MP, CRP #### [facility] [address] [address] [address] Leni Hamlin Glucose [Mass/Vol] 111 mg/dL Critically high 74-106 [facility] Comment on above: Performed By: #### C MP, CRP #### [facility] [address] [address] [address] Leni Hamlin Potassium [Moles/Vol] 3.9 mmol/L Normal 3.5-5.1 [facility] Comment on above: Performed By: #### C MP, CRP #### [facility] [address] [place] [address] Dr. Leni Hamlin Protein [Mass/Vol] 5.8 g/dL Critically low 6.4-8.2 [facility] Comment on above: Performed By: #### C MP, CRP #### [facility] [address] [place] [address] Dr. Leni Hamlin Sodium [Moles/Vol] 136 mmol/L Normal 136-145 [facility] Comment on above: Performed By: #### C MP, CRP #### [facility] [address] [place] [address] Dr. Leni Hamlin Urea nitrogen [Mass/Vol] 17.0 mg/dL Normal 7.0-18.0 [facility] Comment on above: Performed By: #### C MP, CRP #### [facility] [address] [place] [address] Dr. Leni Hamlin Urea nitrogen/Creatinine [Mass ratio] 13.7 mg/mg Normal [facility] Comment on above: Performed By: #### C MP, CRP #### [facility] [address] [place] [address] Dr. Leni Duvall. DIFF PCRon 09-30-2022 C. DIFFICILE PCR Positive Critically abnormal NEGATIVE [facility] Comment on above: Performed By: #### C VDAGS #### [facility] [address] [place] [address] Dr. Leni Halmin CBC AUTO DIFFon 09-30-2022 BASO # 0.0 103/ul Normal 0.0-0.1 [facility] Comment on above: Performed By: #### C BC #### [facility] [address] [place] [address] Dr. Leni Hamlin Basophils/100 WBC (Bld) 0.3 % Normal 0.2-2.0 [facility] Comment on above: Performed By: #### C BC #### [facility] [address] [place] [address] Dr. Leni Hamlin EO # 0.1 103/ul Normal 0.0-0.7 [facility] Comment on above: Performed By: #### C BC #### [facility] [address] [address] [address] Leni Hamlin Eosinophils/100 WBC (Bld) 0.8 % Critically low 0.9-7.0 [facility] Comment on above: Performed By: #### C BC #### [facility] [address] [place] [address] Dr. Leni Hamlin Erythrocyte distribution width (RBC) [Ratio] 13.4 % Normal 11.0-15.0 [facility] Comment on above: Performed By: #### C BC #### [facility] [address] [place] [address] Dr. Leni Hamlin Hematocrit (Bld) [Volume fraction] 50.4 % Normal 42.0-54.0 [facility] Comment on above: Performed By: #### C BC #### [facility] [address] [place] [address] Dr. Leni Hamlin Hemoglobin (Bld) [Mass/Vol] 16.2 g/dL Normal 14.0-18.0 [facility] Comment on above: Performed By: #### C BC #### [facility] [address] [place] [address] Dr. Leni Hamlin IG # 0.13 10e3/ul Critically high 0.00-0.03 [facility] Comment on above: Performed By: #### C BC #### [facility] [address] [place] [address] Dr. Leni Hamlin IG % 0.9 % Critically high 0.0-0.5 [facility] Comment on above: Performed By: #### C BC #### [facility] [address] [place] [address] Dr. Leni Hamlin LYMPH # 1.7 103/ul Normal 1.2-3.8 [facility] Comment on above: Performed By: #### C BC #### [facility] [address] [place] [address] Dr. Leni Hamlin Lymphocytes/100 WBC (Bld) 11.1 % Critically low 20.5-60.0 [facility] Comment on above: Performed By: #### C BC #### [facility] [address] [place] [address] Dr. Leni Hamlin MANUAL DIFF REQ NO Normal [facility] Comment on above: Performed By: #### C BC #### [facility] [address] [place] [address] Dr. Leni Hamlin MCH (RBC) [Entitic mass] 28.8 pg Normal 25.9-34.0 [facility] Comment on above: Performed By: #### C BC #### [facility] [address] [place] [address] Dr. Leni Hamlin MCHC (RBC) [Mass/Vol] 32.1 g/dL Normal 29.9-35.2 [facility] Comment on above: Performed By: #### C BC #### [facility] [address] [place] [address] Dr. Leni Hamlin MCV (RBC) [Entitic vol] 89.7 fL Normal 80.0-94.0 [facility] Comment on above: Performed By: #### C BC #### [facility] [address] [place] [address] Dr. Leni Hamlin MONO # 1.5 103/ul Critically high 0.3-0.8 [facility] Comment on above: Performed By: #### C BC #### [facility] [address] [place] [address] Dr. Leni Hamlin Monocytes/100 WBC (Bld) 9.8 % Normal 1.7-12.0 [facility] Comment on above: Performed By: #### C BC #### [facility] [address] [place] [address] Dr. Leni Hamlin NEUT # 11.7 103/ul Critically high 1.4-6.5 [facility] Comment on above: Performed By: #### C BC #### [facility] [address] [place] [address] Dr. Leni Hamlin Neutrophils/100 WBC (Bld) 77.1 % Critically high 43.0-75.0 [facility] Comment on above: Performed By: #### C BC #### [facility] [address] [address] [address] Leni Hamlin Platelet mean volume (Bld) [Entitic vol] 9.9 fL Normal 9.5-13.5 [facility] Comment on above: Performed By: #### C BC #### [facility] [address] [place] [address] Dr. Leni Hamlin PLT 156 103/ul Normal 150-450 [facility] Comment on above: Performed By: #### C BC #### [facility] [address] [address] [address] Leni Hamlin RBC 5.62 106/ul Normal 4.70-6.10 [facility] Comment on above: Performed By: #### C BC #### [facility] [address] [place] [address] Dr. Leni Hamlin WBC 15.2 103/ul Critically high 4.0-11.0 [facility] Comment on above: Performed By: #### C BC #### [facility] [address] [place] [address] Dr. Leni Hamlin CRPon 09-30-2022 CRP 7.6 mg/dL Critically high <=1.0 [facility] Comment on above: Performed By: #### C RP #### [facility] [address] [place] [address] Dr. Leni Hamlin PROF 14(COMP METB)on 022 Albumin [Mass/Vol] 2.8 g/dL Critically low 3.4-5.0 [facility] Comment on above: Performed By: #### C RP #### [facility] [address] [place] [address] Dr. Leni Hamlin Albumin/Globulin [Mass ratio] 0.9 {ratio} Normal [facility] Comment on above: Performed By: #### C RP #### [facility] [address] [place] [address] Dr. Leni Hamlin ALP [Catalytic activity/Vol] 45 U/L Critically low 46-116 [facility] Comment on above: Performed By: #### C RP #### [facility] [address] [address] [address] Leni Hamlin ALT [Catalytic activity/Vol] 17 U/L Normal 16-63 [facility] Comment on above: Performed By: #### C RP #### [facility] [address] [address] [address] Leni Hamlin Anion gap [Moles/Vol] 8.4 mmol/L Normal [facility] Comment on above: Performed By: #### C RP #### [facility] [address] [address] [address] Leni Hamlin AST [Catalytic activity/Vol] 9 U/L Critically low 15-37 [facility] Comment on above: Performed By: #### C RP #### [facility] [address] [place] [address] Dr. Leni Hamlin Bilirubin [Mass/Vol] 0.6 mg/dL Normal 0.2-1.0 [facility] Comment on above: Performed By: #### C RP #### [facility] [address] [place] [address] Dr. Leni Hamlin Calcium [Mass/Vol] 8.6 mg/dL Normal 8.5-10.1 [facility] Comment on above: Performed By: #### C RP #### [facility] [address] [place] [address] Dr. Leni Hamlin Chloride [Moles/Vol] 104 mmol/L Normal 98-107 [facility] Comment on above: Performed By: #### C RP #### [facility] [address] [address] [address] Leni Hamlin CO2 [Moles/Vol] 29.6 mmol/L Normal 21.0-32.0 [facility] Comment on above: Performed By: #### C RP #### [facility] [address] [place] [address] Dr. Leni Hamlin Creatinine [Mass/Vol] 1.23 mg/dL Normal 0.70-1.30 [facility] Comment on above: Performed By: #### C RP #### [facility] [address] [address] [address] Leni Hamlin EGFR-AF SALVADOREAN >60 Normal >=60 [facility] Comment on above: Performed By: #### C RP #### [facility] [address] [address] [address] Leni Hamlin EGFR-NON AF SALVADOREAN 58 mL/min/1.73m2 Critically low >=60 [facility] Comment on above: Performed By: #### C RP #### [facility] [address] [address] [address] Leni Hamlin Globulin (S) [Mass/Vol] 3.0 g/dL Normal [facility] Comment on above: Performed By: #### C RP #### [facility] [address] [address] [address] Leni Hamlin Glucose [Mass/Vol] 113 mg/dL Critically high 74-106 [facility] Comment on above: Performed By: #### C RP #### [facility] [address] [address] [address] Leni Hamlin Potassium [Moles/Vol] 4.0 mmol/L Normal 3.5-5.1 [facility] Comment on above: Performed By: #### C RP #### [facility] [address] [place] [address] Dr. Leni Hamlin Protein [Mass/Vol] 5.8 g/dL Critically low 6.4-8.2 [facility] Comment on above: Performed By: #### C RP #### [facility] [address] [address] [address] eLni Hamlin Sodium [Moles/Vol] 138 mmol/L Normal 136-145 [facility] Comment on above: Performed By: #### C RP #### [facility] [address] [address] [address] Leni Hamlin Urea nitrogen [Mass/Vol] 17.0 mg/dL Normal 7.0-18.0 [facility] Comment on above: Performed By: #### C RP #### [facility] [address] [address] [address] Leni Hamlin Urea nitrogen/Creatinine [Mass ratio] 13.8 mg/mg Normal [facility] Comment on above: Performed By: #### C RP #### [facility] [address] [place] [address] Dr. Leni Hamlin CBC AUTO DIFFon 09-29-2022 BASO # 0.1 103/ul Normal 0.0-0.1 [facility] Comment on above: Performed By: #### C VDAGS #### [facility] [address] [place] [address] Dr. Leni Hamlin Basophils/100 WBC (Bld) 0.4 % Normal 0.2-2.0 [facility] Comment on above: Performed By: #### C VDAGS #### [facility] [address] [place] [address] Dr. Leni Hamlin EO # 0.1 103/ul Normal 0.0-0.7 [facility] Comment on above: Performed By: #### C VDAGS #### [facility] [address] [place] [address] Dr. Leni Hamlin Eosinophils/100 WBC (Bld) 0.9 % Normal 0.9-7.0 [facility] Comment on above: Performed By: #### C VDAGS #### [facility] [address] [place] [address] Dr. Leni Hamlin Erythrocyte distribution width (RBC) [Ratio] 13.2 % Normal 11.0-15.0 [facility] Comment on above: Performed By: #### C VDAGS #### [facility] [address] [place] [address] Dr. Leni Hamlin Hematocrit (Bld) [Volume fraction] 53.1 % Normal 42.0-54.0 [facility] Comment on above: Performed By: #### C VDAGS #### [facility] [address] [place] [address] Dr. Leni Hamlin Hemoglobin (Bld) [Mass/Vol] 17.3 g/dL Normal 14.0-18.0 [facility] Comment on above: Performed By: #### C VDAGS #### [facility] [address] [address] [address] Leni Hamlin IG # 0.30 10e3/ul Critically high 0.00-0.03 [facility] Comment on above: Performed By: #### C VDAGS #### [facility] [address] [address] [address] Leni Hamlin IG % 2.2 % Critically high 0.0-0.5 [facility] Comment on above: Performed By: #### C VDAGS #### [facility] [address] [address] [address] Leni Hamlin LYMPH # 1.5 103/ul Normal 1.2-3.8 [facility] Comment on above: Performed By: #### C VDAGS #### [facility] [address] [place] [address] Dr. Leni Hamlin Lymphocytes/100 WBC (Bld) 10.5 % Critically low 20.5-60.0 [facility] Comment on above: Performed By: #### C VDAGS #### [facility] [address] [place] [address] Dr. Leni Hamlin MANUAL DIFF REQ NO Normal [facility] Comment on above: Performed By: #### C VDAGS #### [facility] [address] [place] [address] Dr. Leni Hamlin MCH (RBC) [Entitic mass] 29.0 pg Normal 25.9-34.0 [facility] Comment on above: Performed By: #### C VDAGS #### [facility] [address] [place] [address] Dr. Leni Hamlin MCHC (RBC) [Mass/Vol] 32.6 g/dL Normal 29.9-35.2 [facility] Comment on above: Performed By: #### C VDAGS #### [facility] [address] [place] [address] Dr. Leni Hamlin MCV (RBC) [Entitic vol] 88.9 fL Normal 80.0-94.0 [facility] Comment on above: Performed By: #### C VDAGS #### [facility] [address] [place] [address] Dr. Leni Hamlin MONO # 0.8 103/ul Normal 0.3-0.8 [facility] Comment on above: Performed By: #### C VDAGS #### [facility] [address] [place] [address] Dr. Leni Hamlin Monocytes/100 WBC (Bld) 6.0 % Normal 1.7-12.0 [facility] Comment on above: Performed By: #### C VDAGS #### [facility] [address] [place] [address] Dr. Leni Hamlin NEUT # 11.2 103/ul Critically high 1.4-6.5 [facility] Comment on above: Performed By: #### C VDAGS #### [facility] [address] [place] [address] Dr. Leni Hamlin Neutrophils/100 WBC (Bld) 80.0 % Critically high 43.0-75.0 [facility] Comment on above: Performed By: #### C VDAGS #### [facility] [address] [place] [address] Dr. Leni Hamlin Platelet mean volume (Bld) [Entitic vol] 9.6 fL Normal 9.5-13.5 [facility] Comment on above: Performed By: #### C VDAGS #### [facility] [address] [place] [address] Dr. Leni Hamlin PLT 186 103/ul Normal 150-450 [facility] Comment on above: Performed By: #### C VDAGS #### [facility] [address] [place] [address] Dr. Leni Hamlin RBC 5.97 106/ul Normal 4.70-6.10 [facility] Comment on above: Performed By: #### C VDAGS #### [facility] [address] [place] [address] Dr. Leni Hamlin WBC 13.9 103/ul Critically high 4.0-11.0 [facility] Comment on above: Performed By: #### C VDAGS #### [facility] [address] [address] [address] ABD/PELV W CONon [...] RAJESH CHACON Date: 2022-09-29 12:51 Normal [facility] SARS-CoV-2 (COVID-19) RNA VENESSA+probe Ql (Unsp spec) Not detected Normal NOT DETECTED [facility] Comment on above: Result Comment: When diagnostic [...] for this test is supported by the [employer] Agent of Health and Human Service's declaration that [...] Performed By: #### B MP, BNP #### [facility] [address] [place] [address] Dr. Leni Hamlin GI PANEL (PCR)on 09-29-2022 Adenovirus F 40/41 Not detected Normal NOT DETECTED [facility] Comment on above: Performed By: #### C RP #### [facility] [address] [place] [address] Dr. Leni Hamlin Astrovirus Not detected Normal NOT DETECTED [facility] Comment on above: Performed By: #### C RP #### [facility] [address] [place] [address] Dr. Leni Duvall. Diff toxin A/B Not detected Normal NOT DETECTED [facility] Comment on above: Performed By: #### C RP #### [facility] [address] [place] [address] Dr. Leni Hamlin Campylobacter Not detected Normal NOT DETECTED [facility] Comment on above: Performed By: #### C RP #### [facility] [address] [place] [address] Dr. Leni Hamlin Cryptosporidium Not detected Normal NOT DETECTED [facility] Comment on above: Performed By: #### C RP #### [facility] [address] [place] [address] Dr. Leni Hamlin Cyclos. Cayetanensis Not detected Normal NOT DETECTED [facility] Comment on above: Performed By: #### C RP #### [facility] [address] [place] [address] Dr. Leni Hamlin E. Coli O157 Not Applicable Normal Not Applicable [facility] Comment on above: Performed By: #### C RP #### [facility] [address] [place] [address] Dr. Leni Hamlin E. histolytica Not detected Normal NOT DETECTED [facility] Comment on above: Performed By: #### C RP #### [facility] [address] [place] [address] Dr. Leni Hamlin EAEC Not detected Normal NOT DETECTED [facility] Comment on above: Performed By: #### C RP #### [facility] [address] [place] [address] Dr. Leni Hamlin EIEC Not detected Normal NOT DETECTED [facility] Comment on above: Performed By: #### C RP #### [facility] [address] [place] [address] Dr. Leni Hamlin EPEC Not detected Normal NOT DETECTED [facility] Comment on above: Performed By: #### C RP #### [facility] [address] [place] [address] Dr. Leni Hamlin ETEC Not detected Normal NOT DETECTED [facility] Comment on above: Performed By: #### C RP #### [facility] [address] [place] [address] Dr. Leni Kleinlijoão Not detected Normal NOT DETECTED [facility] Comment on above: Performed By: #### C RP #### [facility] [address] [place] [address] Dr. Leni TEJEDA CONTROLS PASSED Normal [facility] Comment on above: Performed By: #### C RP #### [facility] [address] [place] [address] Dr. Leni KRISHNAMURTHY HEADER GI PANEL BACTERIA Normal [facility] Comment on above: Performed By: #### C RP #### [facility] [address] [place] [address] Dr. Leni KAMARA ECOLI GI PANEL DIARRHEAGENIC E.COLI / SHIGELLA Normal [facility] Comment on above: Performed By: #### C RP #### [facility] [address] [place] [address] Dr. Leni KAMARA INFO SEE BELOW [facility] Comment on above: Result Comment: EAEC - Enteroaggregative E. Coli EPEC- Enteropathogenic E. Coli ETEC- Enterotoxigenic E. Coli lt/st STEC- Shigella-like toxin-producing E. Coli stx1/stx2 EIEC- Shigella/Enteroinvasive E. Coli Performed By: #### C RP #### [facility] [address] [place] [address] Dr. Leni KAMARA PARASITES GI PANEL PARASITES Normal [facility] Comment on above: Performed By: #### C RP #### [facility] [address] [place] [address] Dr. Leni KAMARA VIRUS GI PANEL VIRUSES Normal [facility] Comment on above: Performed By: #### C RP #### [facility] [address] [place] [address] Dr. Leni Hamlin Norovirus GI/GII Not detected Normal NOT DETECTED [facility] Comment on above: Performed By: #### C RP #### [facility] [address] [place] [address] Dr. Leni Hamlin P. Shigelloides Not detected Normal NOT DETECTED [facility] Comment on above: Performed By: #### C RP #### [facility] [address] [place] [address] Dr. Leni Hamlin Rotavirus A Not detected Normal NOT DETECTED [facility] Comment on above: Performed By: #### C RP #### [facility] [address] [place] [address] Dr. Leni Hamlin Salmonella Not detected Normal NOT DETECTED [facility] Comment on above: Performed By: #### C RP #### [facility] [address] [place] [address] Dr. Leni Hamlin Sapovirus Not detected Normal NOT DETECTED [facility] Comment on above: Performed By: #### C RP #### [facility] [address] [place] [address] Dr. Leni Hamlin STEC Not detected Normal NOT DETECTED [facility] Comment on above: Performed By: #### C RP #### [facility] [address] [place] [address] Dr. Leni Hamlin Vibrio Not detected Normal NOT DETECTED [facility] Comment on above: Performed By: #### C RP #### [facility] [address] [place] [address] Dr. Leni Hamlin Vibrio Cholera Not detected Normal NOT DETECTED [facility] Comment on above: Performed By: #### C RP #### [facility] [address] [address] [address] Leni Hamlin Y. Enterocolitica Not detected Normal NOT DETECTED [facility] Comment on above: Performed By: #### C RP #### [facility] [address] [address] [address] Leni Hamlin PROF CHEM 8 (BAS METB)on Anion gap [Moles/Vol] 5.8 mmol/L Normal [facility] Comment on above: Performed By: #### C VDAGS #### [facility] [address] [place] [address] Dr. Leni Hamlin Calcium [Mass/Vol] 9.0 mg/dL Normal 8.5-10.1 [facility] Comment on above: Performed By: #### C VDAGS #### [facility] [address] [place] [address] Dr. Leni Hamlin Chloride [Moles/Vol] 103 mmol/L Normal 98-107 [facility] Comment on above: Performed By: #### C VDAGS #### [facility] [address] [place] [address] Dr. Leni Hamlin CO2 [Moles/Vol] 31.7 mmol/L Normal 21.0-32.0 [facility] Comment on above: Performed By: #### C VDAGS #### [facility] [address] [place] [address] Dr. Leni Hamlin Creatinine [Mass/Vol] 1.28 mg/dL Normal 0.70-1.30 [facility] Comment on above: Performed By: #### C VDAGS #### [facility] [address] [place] [address] Dr. Leni Hamlin EGFR-AF SALVADOREAN >60 Normal >=60 [facility] Comment on above: Performed By: #### C VDAGS #### [facility] [address] [place] [address] Dr. Leni Hamlin EGFR-NON AF SALVADOREAN 55 mL/min/1.73m2 Critically low >=60 [facility] Comment on above: Performed By: #### C VDAGS #### [facility] [address] [address] [address] Leni Hamlin Glucose [Mass/Vol] 130 mg/dL Critically high 74-106 [facility] Comment on above: Performed By: #### C VDAGS #### [facility] [address] [address] [address] Leni Hamlin Potassium [Moles/Vol] 4.5 mmol/L Normal 3.5-5.1 [facility] Comment on above: Performed By: #### C VDAGS #### [facility] [address] [address] [address] Leni Hamlin Sodium [Moles/Vol] 136 mmol/L Normal 136-145 [facility] Comment on above: Performed By: #### C VDAGS #### [facility] [address] [place] [address] Dr. Leni Hamlin Urea nitrogen [Mass/Vol] 23.0 mg/dL Critically high 7.0-18.0 [facility] Comment on above: Performed By: #### C VDAGS #### [facility] [address] [address] [address] Leni Hamlin Urea nitrogen/Creatinine [Mass ratio] 18.0 mg/mg Normal [facility] Comment on above: Performed By: #### C VDAGS #### [facility] [address] [place] [address] Dr. Leni Hamlin Covid-19 PCR ([facility])on 08-13 SARS-CoV-2 (COVID-19) RNA VENESSA+probe Ql (Unsp spec) Not detected Normal NOT DETECTED [facility] Comment on above: Result Comment: When diagnostic [...] for this test is supported by the [employer] Agent of Health and Human Service's declaration that [...] Performed By: #### C MP, CRP #### [facility] [address] [address] [address] Leni Hamlin Covid-19 PCR ([facility])on 05-11 SARS-CoV-2 (COVID-19) RNA VENESSA+probe Ql (Unsp spec) Detected Critically abnormal NOT DETECTED [facility] Comment on above: Result Comment: This test is not yet approved or cleared by the [place] FDA. When there are no FDA-approved or cleared tests available, and other criteria are met, FDA can make tests available under an emergency access mechanism called an Emergency Use Authorization (EUA). The EUA for this test is supported by the [employer] Agent of Health and Human Service's (HHS's) declaration [...] used). Performed By: #### C RP #### [facility] [address] [address] [address] Leni Hamlin Covid-19 PCR ([facility])on 04-11 SARS-CoV-2 (COVID-19) RNA VENESSA+probe Ql (Unsp spec) Not detected Normal NOT DETECTED [facility] Comment on above: Result Comment: This test is not yet approved or cleared by the [place] FDA. When there are no FDA-approved or cleared tests available, and other criteria are met, FDA can make tests available under an emergency access mechanism called an Emergency Use Authorization (EUA). The EUA for this test is supported by the [employer] Agent of Health and Human Service's (HHS's) declaration [...] SARS-CoV-2. Performed By: #### C VDTB #### [facility] [address] [address] [address] Leni Hamlin SYMPTOMATIC COVID-19 ANTIGEN on 04-23-2022 EUA Statement SEE BELOW Normal [facility] Comment on above: Result Comment: This [...] sooner. Performed By: #### C VDAGS #### [facility] [address], [place] [address] Dr. Leni Hamlin SARS-CoV-2 (COVID-19) RNA VENESSA+probe Ql (Unsp spec) Negative Normal NEGATIVE [facility] Comment on above: Performed By: #### C VDAGS #### [facility] [address], [place] [address] Dr. Leni Hamlin Cardiovascular Lab Reporton 03-22-2022 Cardiovascular Lab Report [facility] MR #: [id number] Department of Physician: Modesto Becerra MD Medicine Service Date: 03/22/2022 Division of Birthdate: 1950 Cardiology Room #: Adult Cardiovascular Services [address] [place] [id number] Cardiovascular Laboratory Report PACEMAKER IMPLANT PROCEDURE NOTE [...] using modified seldinger technique using a 5 Estonian micro-puncture needle on two occasions and 0.35 [...] pocket was created for the device. 6 [place]ian Safesheaths were placed over the wire. An active fixation Biotronik pacing lead was then delivered through the 6Fsheath to the right ventricle. After confirmation of lead position on orthogonal views (RUBALCAVA and RUSSIAN) to confirm septal position, the screw was [...] lead position on orthogonal views (RUBALCAVA and RUSSIAN), the screw was activated. After confirmation of [...] Device info: Biotronik Edora Model# 8DR-T Serial# [id number] RA lead: Model# Biotronik Solia S45 Serial# [id number] Sensin.5mV Threshold: 0.6V@0.5ms Impedance: 507 Ohms RV lead: Model# Biotronik Solia S53 Serial# [id number] Sensin.5mV Threshold: 0.6V@0.4ms Impedance: 663 Ohms POST [...] El (more content not included)... Normal [facility] SPUTUM CULTUREon 03-17-2022 Epithelial cells LM Ql (Urine sed) Few Normal [facility] Comment on above: Performed By: #### B MP, BNP #### [facility] [address] [address] [address] Leni Hamlin Gram Stain Evaluation Comment Normal [facility] Comment on above: Result Comment: This specimen is of good quality and is acceptable for routine bacterial culture. Performed By: #### B MP, BNP #### [facility] [address] [address] [address] Leni Hamlin Lower Respiratory Culture Final report Normal [facility] Comment on above: Performed By: #### B MP, BNP #### [facility] [address] [address] [address] Leni Hamlin Result 1 Comment Normal [facility] Comment on above: Result Comment: Few gram negative rods. Performed By: #### B MP, BNP #### [facility] [address] [address] [address] Leni Hamlin Result Comment: Rout ine respiratory bola Result 2 Comment Normal [facility] Comment on above: Result Comment: Few gram positive cocci Performed By: #### B MP, BNP #### [facility] [address] [place] [address] Dr. Leni Hamlin Result 3 Comment Normal [facility] Comment on above: Result Comment: Rare gram positive rods Performed By: #### B MP, BNP #### [facility] [address] [address] [address] Leni Hamlin Result 4 Normal [facility] Comment on above: Performed By: #### B MP, BNP #### [facility] [address] [address] [address] Leni Hamlin White Blood Cells Few Normal [facility] Comment on above: Performed By: #### B MP, BNP #### [facility] [address] [address] [address] Leni Hamlin BNPon 03-15-2022 Natriuretic peptide B (Bld) [Mass/Vol] 429.0 pg/mL Normal <=900.0 [facility] Comment on above: Performed By: #### C MP, CRP #### [facility] [address] [place] [address] Dr. Leni Hamlin CBC AUTO DIFFon 03-15-2022 BASO # 0.0 103/ul Normal 0.0-0.1 [facility] Comment on above: Performed By: #### C VDAGS #### [facility] [address] [place] [address] Dr. Leni Hamlin Basophils/100 WBC (Bld) 0.2 % Normal 0.2-2.0 [facility] Comment on above: Performed By: #### C VDAGS #### [facility] [address] [place] [address] Dr. Leni Hamlin EO # 0.0 103/ul Normal 0.0-0.7 [facility] Comment on above: Performed By: #### C VDAGS #### [facility] [address] [place] [address] Dr. Leni Hamlin Eosinophils/100 WBC (Bld) 0.0 % Critically low 0.9-7.0 [facility] Comment on above: Performed By: #### C VDAGS #### [facility] [address] [place] [address] Dr. Leni Hamlin Erythrocyte distribution width (RBC) [Ratio] 13.6 % Normal 11.0-15.0 [facility] Comment on above: Performed By: #### C VDAGS #### [facility] [address] [place] [address] Dr. Leni Hamlin Hematocrit (Bld) [Volume fraction] 44.5 % Normal 42.0-54.0 [facility] Comment on above: Performed By: #### C VDAGS #### [facility] [address] [place] [address] Dr. Leni Hamlin Hemoglobin (Bld) [Mass/Vol] 13.8 g/dL Critically low 14.0-18.0 [facility] Comment on above: Performed By: #### C VDAGS #### [facility] [address] [address] [address] Leni Hamlin IG # 0.35 10e3/ul Critically high 0.00-0.03 [facility] Comment on above: Performed By: #### C VDAGS #### [facility] [address] [address] [address] Leni Hamlin IG % 2.4 % Critically high 0.0-0.5 [facility] Comment on above: Performed By: #### C VDAGS #### [facility] [address] [address] [address] Leni Hamlin LYMPH # 0.6 103/ul Critically low 1.2-3.8 [facility] Comment on above: Performed By: #### C VDAGS #### [facility] [address] [address] [address] Leni Hamlin Lymphocytes/100 WBC (Bld) 4.1 % Critically low 20.5-60.0 [facility] Comment on above: Performed By: #### C VDAGS #### [facility] [address] [address] [address] Leni Hamlin MANUAL DIFF REQ NO Normal [facility] Comment on above: Performed By: #### C VDAGS #### [facility] [address] [address] [address] Leni Hamlin MCH (RBC) [Entitic mass] 29.4 pg Normal 25.9-34.0 [facility] Comment on above: Performed By: #### C VDAGS #### [facility] [address] [address] [address] Leni Hamlin MCHC (RBC) [Mass/Vol] 31.0 g/dL Normal 29.9-35.2 [facility] Comment on above: Performed By: #### C VDAGS #### [facility] [address] [address] [address] Leni Hamlin MCV (RBC) [Entitic vol] 94.7 fL Critically high 80.0-94.0 [facility] Comment on above: Performed By: #### C VDAGS #### [facility] [address] [place] [address] Dr. Leni Hamlin MONO # 0.7 103/ul Normal 0.3-0.8 [facility] Comment on above: Performed By: #### C VDAGS #### [facility] [address] [place] [address] Dr. Leni Hamlin Monocytes/100 WBC (Bld) 4.7 % Normal 1.7-12.0 [facility] Comment on above: Performed By: #### C VDAGS #### [facility] [address] [place] [address] Dr. Leni Hamlin NEUT # 12.9 103/ul Critically high 1.4-6.5 [facility] Comment on above: Performed By: #### C VDAGS #### [facility] [address] [place] [address] Dr. Leni Hamlin Neutrophils/100 WBC (Bld) 88.6 % Critically high 43.0-75.0 [facility] Comment on above: Performed By: #### C VDAGS #### [facility] [address] [place] [address] Dr. Leni Hamlin Platelet mean volume (Bld) [Entitic vol] 10.2 fL Normal 9.5-13.5 [facility] Comment on above: Performed By: #### C VDAGS #### [facility] [address] [place] [address] Dr. Leni Hamlin PLT 176 103/ul Normal 150-450 [facility] Comment on above: Performed By: #### C VDAGS #### [facility] [address] [place] [address] Dr. Leni Hamlin RBC 4.70 106/ul Normal 4.70-6.10 [facility] Comment on above: Performed By: #### C VDAGS #### [facility] [address] [place] [address] Dr. Leni Hamlin WBC 14.6 103/ul Critically high 4.0-11.0 [facility] Comment on above: Performed By: #### C VDAGS #### [facility] [address] [place] [address] Dr. Leni Hamlin PROF CHEM 8 (BAS METB)on Anion gap [Moles/Vol] 10.2 mmol/L Normal [facility] Comment on above: Performed By: #### C MP, CRP #### [facility] [address] [place] [address] Dr. Leni Hamlin Calcium [Mass/Vol] 8.0 mg/dL Critically low 8.5-10.1 [facility] Comment on above: Performed By: #### C MP, CRP #### [facility] [address] [place] [address] Dr. Leni Hamlin Chloride [Moles/Vol] 104 mmol/L Normal 98-107 [facility] Comment on above: Performed By: #### C MP, CRP #### [facility] [address] [place] [address] Dr. Leni Hamlin CO2 [Moles/Vol] 28.2 mmol/L Normal 21.0-32.0 [facility] Comment on above: Performed By: #### C MP, CRP #### [facility] [address] [place] [address] Dr. Leni Hamlin Creatinine [Mass/Vol] 1.36 mg/dL Critically high 0.70-1.30 [facility] Comment on above: Performed By: #### C MP, CRP #### [facility] [address] [place] [address] Dr. Leni Hamlin EGFR-AF SALVADOREAN >60 Normal >=60 [facility] Comment on above: Performed By: #### C MP, CRP #### [facility] [address] [place] [address] Dr. Leni Hamlin EGFR-NON AF SALVADOREAN 51 mL/min/1.73m2 Critically low >=60 [facility] Comment on above: Performed By: #### C MP, CRP #### [facility] [address] [place] [address] Dr. Leni Hamlin Glucose [Mass/Vol] 205 mg/dL Critically high 74-106 [facility] Comment on above: Performed By: #### C MP, CRP #### [facility] [address] [place] [address] Dr. Leni Hamlin Potassium [Moles/Vol] 4.4 mmol/L Normal 3.5-5.1 [facility] Comment on above: Performed By: #### C MP, CRP #### [facility] [address] [place] [address] Dr. Leni Hamlin Sodium [Moles/Vol] 138 mmol/L Normal 136-145 [facility] Comment on above: Performed By: #### C MP, CRP #### [facility] [address] [place] [address] Dr. Leni Hamlin Urea nitrogen [Mass/Vol] 29.0 mg/dL Critically high 7.0-18.0 [facility] Comment on above: Performed By: #### C MP, CRP #### [facility] [address] [place] [address] Dr. Leni Hamlin Urea nitrogen/Creatinine [Mass ratio] 21.3 mg/mg Normal [facility] Comment on above: Performed By: #### C MP, CRP #### [facility] [address] [place] [address] Dr. Leni Hamlin BNPon 03-14-2022 Natriuretic peptide B (Bld) [Mass/Vol] 337.0 pg/mL Normal <=900.0 [facility] Comment on above: Performed By: #### C RP #### [facility] [address] [place] [address] Dr. Leni Hamlin CBC AUTO DIFFon 03-14-2022 BASO # 0.0 103/ul Normal 0.0-0.1 [facility] Comment on above: Performed By: #### C MP, CRP #### [facility] [address] [place] [address] Dr. Leni Hamlin Basophils/100 WBC (Bld) 0.2 % Normal 0.2-2.0 [facility] Comment on above: Performed By: #### C MP, CRP #### [facility] [address] [address] [address] Leni Hamlin EO # 0.0 103/ul Normal 0.0-0.7 [facility] Comment on above: Performed By: #### C MP, CRP #### [facility] [address] [address] [address] Leni Hamlin Eosinophils/100 WBC (Bld) 0.0 % Critically low 0.9-7.0 [facility] Comment on above: Performed By: #### C MP, CRP #### [facility] [address] [address] [address] Leni Hamlin Erythrocyte distribution width (RBC) [Ratio] 13.6 % Normal 11.0-15.0 [facility] Comment on above: Performed By: #### C MP, CRP #### [facility] [address] [place] [address] Dr. Leni Hamlin Hematocrit (Bld) [Volume fraction] 47.8 % Normal 42.0-54.0 [facility] Comment on above: Performed By: #### C MP, CRP #### [facility] [address] [address] [address] Leni Hamlin Hemoglobin (Bld) [Mass/Vol] 14.6 g/dL Normal 14.0-18.0 [facility] Comment on above: Performed By: #### C MP, CRP #### [facility] [address] [address] [address] Leni Hamlin IG # 0.22 10e3/ul Critically high 0.00-0.03 [facility] Comment on above: Performed By: #### C MP, CRP #### [facility] [address] [address] [address] Leni Hamlin IG % 1.3 % Critically high 0.0-0.5 [facility] Comment on above: Performed By: #### C MP, CRP #### [facility] [address] [place] [address] Dr. Leni Hamlin LYMPH # 0.5 103/ul Critically low 1.2-3.8 [facility] Comment on above: Performed By: #### C MP, CRP #### [facility] [address] [address] [address] Leni Hamlin Lymphocytes/100 WBC (Bld) 2.9 % Critically low 20.5-60.0 [facility] Comment on above: Performed By: #### C MP, CRP #### [facility] [address] [address] [address] Leni Hamlin MANUAL DIFF REQ NO Normal [facility] Comment on above: Performed By: #### C MP, CRP #### [facility] [address] [place] [address] Dr. Leni Hamlin MCH (RBC) [Entitic mass] 29.4 pg Normal 25.9-34.0 [facility] Comment on above: Performed By: #### C MP, CRP #### [facility] [address] [place] [address] Dr. Leni Hamlin MCHC (RBC) [Mass/Vol] 30.5 g/dL Normal 29.9-35.2 [facility] Comment on above: Performed By: #### C MP, CRP #### [facility] [address] [address] [address] Leni Hamlin MCV (RBC) [Entitic vol] 96.4 fL Critically high 80.0-94.0 [facility] Comment on above: Performed By: #### C MP, CRP #### [facility] [address] [place] [address] Dr. Leni Hamlin MONO # 1.1 103/ul Critically high 0.3-0.8 [facility] Comment on above: Performed By: #### C MP, CRP #### [facility] [address] [place] [address] Dr. Leni Hamlin Monocytes/100 WBC (Bld) 6.4 % Normal 1.7-12.0 [facility] Comment on above: Performed By: #### C MP, CRP #### [facility] [address] [place] [address] Dr. Leni Hamlin NEUT # 15.2 103/ul Critically high 1.4-6.5 [facility] Comment on above: Performed By: #### C MP, CRP #### [facility] [address] [place] [address] Dr. Leni Hamlin Neutrophils/100 WBC (Bld) 89.2 % Critically high 43.0-75.0 [facility] Comment on above: Performed By: #### C MP, CRP #### [facility] [address] [place] [address] Dr. Leni Hamlin Platelet mean volume (Bld) [Entitic vol] 10.4 fL Normal 9.5-13.5 [facility] Comment on above: Performed By: #### C MP, CRP #### [facility] [address] [place] [address] Dr. Leni Hamlin PLT 167 103/ul Normal 150-450 [facility] Comment on above: Performed By: #### C MP, CRP #### [facility] [address] [place] [address] Dr. Leni Hamlin RBC 4.96 106/ul Normal 4.70-6.10 [facility] Comment on above: Performed By: #### C MP, CRP #### [facility] [address] [place] [address] Dr. Leni Hamlin WBC 17.0 103/ul Critically high 4.0-11.0 [facility] Comment on above: Performed By: #### C MP, CRP #### [facility] [address] [place] [address] Dr. Leni Hamlin PROF CHEM 8 (BAS METB)on Anion gap [Moles/Vol] 7.0 mmol/L Normal [facility] Comment on above: Performed By: #### C VDAGS #### [facility] [address] [place] [address] Dr. Leni Hamlin Calcium [Mass/Vol] 8.3 mg/dL Critically low 8.5-10.1 Th e [facility] Comment on above: Performed By: #### C VDAGS #### [facility] [address] [place] [address] Dr. Leni Hamlin Chloride [Moles/Vol] 102 mmol/L Normal 98-107 [facility] Comment on above: Performed By: #### C VDAGS #### [facility] [address] [place] [address] Dr. Leni Hamlin CO2 [Moles/Vol] 29.6 mmol/L Normal 21.0-32.0 [facility] Comment on above: Performed By: #### C VDAGS #### [facility] [address] [place] [address] Dr. Leni Hamlin Creatinine [Mass/Vol] 1.48 mg/dL Critically high 0.70-1.30 [facility] Comment on above: Performed By: #### C VDAGS #### [facility] [address] [place] [address] Dr. Leni Hamlin EGFR-AF SALVADOREAN 56 mL/min/1.73m2 Critically low >=60 [facility] Comment on above: Performed By: #### C VDAGS #### [facility] [address] [place] [address] Dr. Leni Hamlin EGFR-NON AF SALVADOREAN 47 mL/min/1.73m2 Critically low >=60 [facility] Comment on above: Performed By: #### C VDAGS #### [facility] [address] [place] [address] Dr. Leni Hamlin Glucose [Mass/Vol] 168 mg/dL Critically high 74-106 [facility] Comment on above: Performed By: #### C VDAGS #### [facility] [address] [place] [address] Dr. Leni Hamlin Potassium [Moles/Vol] 4.6 mmol/L Normal 3.5-5.1 [facility] Comment on above: Performed By: #### C VDAGS #### [facility] [address] [place] [address] Dr. Leni Hamlin Sodium [Moles/Vol] 134 mmol/L Critically low 136-145 [facility] Comment on above: Performed By: #### C VDAGS #### [facility] [address] [place], [place] [id number] Dr. Leni Hamlin Urea nitrogen [Mass/Vol] 29.0 mg/dL Critically high 7.0-18.0 [facility] Comment on above: Performed By: #### C VDAGS #### [facility] [address] [place] [address] Dr. Leni Hamlin Urea nitrogen/Creatinine [Mass ratio] 19.6 mg/mg Normal [facility] Comment on above: Performed By: #### C VDAGS #### [facility] [address] [place] [address] Dr. Leni Hamlin BNPon 03-13-2022 Natriuretic peptide B (Bld) [Mass/Vol] 501.0 pg/mL Normal <=900.0 [facility] Comment on above: Performed By: #### B MP, BNP #### [facility] [address] [place] [address] Dr. Leni Hamlin CBC W MANUAL DIFFon 03-13-20 22 ATYPICAL LYMPH # Normal [facility] Comment on above: Performed By: #### C VDAGS #### [facility] [address] [place] [address] Dr. Leni Hamlin ATYPICAL LYMPH % Normal [facility] Comment on above: Performed By: #### C VDAGS #### [facility] [address] [place] [address] Dr. Leni Hamlin BAND # 2.1 103/ul Critically high 0.0-0.3 [facility] Comment on above: Performed By: #### C VDAGS #### [facility] [address] [place] [address] Dr. Leni Hamlin BAND % 12 % Critically high 0-5 [facility] Comment on above: Performed By: #### C VDAGS #### [facility] [address] [place] [address] Dr. Leni Hamlin BASOM # 0.00 103/ul Normal 0.00-0.10 [facility] Comment on above: Performed By: #### C VDAGS #### [facility] [address] [place] [address] Dr. Yilan Hamlin BASOM % 0.0 % Critically low 0.2-2.0 [facility] Comment on above: Performed By: #### C VDAGS #### [facility] [address] [place] [address] Dr. Leni Hamlin BLAST # Normal [facility] Comment on above: Performed By: #### C VDAGS #### [facility] [address] [place] [address] Dr. Leni Hamlin BLAST % Normal [facility] Comment on above: Performed By: #### C VDAGS #### [facility] [address] [place] [address] Dr. Leni Hamlin CORRECTED WBC Normal 4.0-11.0 [facility] Comment on above: Performed By: #### C VDAGS #### [facility] [address] [place] [address] Dr. Leni Hamlin EOS # 0.00 103/ul Normal 0.00-0.70 [facility] Comment on above: Performed By: #### C VDAGS #### [facility] [address] [place] [address] Dr. Leni Hamlin EOS% 0.0 % Critically low 0.9-7.0 [facility] Comment on above: Performed By: #### C VDAGS #### [facility] [address] [place] [address] Dr. Leni Hamlin HCT 51.2 % Normal 42.0-54.0 [facility] Comment on above: Performed By: #### C VDAGS #### [facility] [address] [place] [address] Dr. Leni Hamlin HGB 15.4 g/dl Normal 14.0-18.0 [facility] Comment on above: Performed By: #### C VDAGS #### [facility] [address] [place] [address] Dr. Leni Hamlin LYMPHM # 0.52 103/ul Critically low 1.20-3.80 [facility] Comment on above: Performed By: #### C VDAGS #### [facility] [address] [place] [address] Dr. Leni Hamlin LYMPHM% 3.0 % Critically low 20.5-60.0 [facility] Comment on above: Performed By: #### C VDAGS #### [facility] [address] [place] [address] Dr. Leni Hamlin MCH 29.6 pg Normal 25.9-34.0 [facility] Comment on above: Performed By: #### C VDAGS #### [facility] [address] [place] [address] Dr. Leni Hamlin MCHC 30.1 g/dl Normal 29.9-35.2 [facility] Comment on above: Performed By: #### C VDAGS #### [facility] [address] [place] [address] Dr. Leni Hamlin MCV 98.5 fL Critically high 80.0-94.0 [facility] Comment on above: Performed By: #### C VDAGS #### [facility] [address] [place] [address] Dr. Leni Hamlin METAMYELOCYTE # Normal [facility] Comment on above: Performed By: #### C VDAGS #### [facility] [address] [place] [address] Dr. Leni Hamlin METAMYELOCYTE % Normal [facility] Comment on above: Performed By: #### C VDAGS #### [facility] [address] [place] [address] Dr. Leni Hamlin MONOM# 0.86 103/ul Critically high 0.30-0.80 [facility] Comment on above: Performed By: #### C VDAGS #### [facility] [address] [place] [address] Dr. Leni Hamlin MONOM% 5.0 % Normal 1.7-12.0 [facility] Comment on above: Performed By: #### C VDAGS #### [facility] [address] [place] [address] Dr. Leni Hamlin MPV 10.0 fL Normal 9.5-13.5 [facility] Comment on above: Performed By: #### C VDAGS #### [facility] [address] [address] [address] Leni Hamlin MYELOCYTE # Normal [facility] Comment on above: Performed By: #### C VDAGS #### [facility] [address] [place] [address] Dr. Leni Hamlin MYELOCYTE % Normal [facility] Comment on above: Performed By: #### C VDAGS #### [facility] [address] [place] [address] Dr. Leni Hamlin NRBC Normal [facility] Comment on above: Performed By: #### C VDAGS #### [facility] [address] [place] [address] Dr. Leni Hamlin PLT 161 103/ul Normal 150-450 [facility] Comment on above: Performed By: #### C VDAGS #### [facility] [address] [place] [address] Dr. Leni Hamlin RBC 5.20 106/ul Normal 4.70-6.10 [facility] Comment on above: Performed By: #### C VDAGS #### [facility] [address] [place] [address] Dr. Leni Hamlin RDW 13.5 % Normal 11.0-15.0 [facility] Comment on above: Performed By: #### C VDAGS #### [facility] [address] [place] [address] Dr. Leni Hamlin SEG # 13.76 103/ul Critically high 1.40-6.50 [facility] Comment on above: Performed By: #### C VDAGS #### [facility] [address] [place] [address] Dr. Leni Hamlin SEG % 80.0 % Critically high 43.0-75.0 [facility] Comment on above: Performed By: #### C VDAGS #### [facility] [address] [place] [address] Dr. Leni Hamlin WBC 17.2 103/ul Critically high 4.0-11.0 [facility] Comment on above: Performed By: #### C VDAGS #### [facility] [address] [place] [address] Dr. Leni Hamlin PROF CHEM 8 (BAS METB)on Anion gap [Moles/Vol] 12.5 mmol/L Normal [facility] Comment on above: Performed By: #### C VDAGS #### [facility] [address] [place] [address] Dr. Leni Hamlin Calcium [Mass/Vol] 8.4 mg/dL Critically low 8.5-10.1 Th e [facility] Comment on above: Performed By: #### C VDAGS #### [facility] [address] [place] [address] Dr. Leni Hamlin Chloride [Moles/Vol] 100 mmol/L Normal 98-107 [facility] Comment on above: Performed By: #### C VDAGS #### [facility] [address] [place] [address] Dr. Leni Hamlin CO2 [Moles/Vol] 26.7 mmol/L Normal 21.0-32.0 [facility] Comment on above: Performed By: #### C VDAGS #### [facility] [address] [place] [address] Dr. Leni Hamlin Creatinine [Mass/Vol] 1.87 mg/dL Critically high 0.70-1.30 [facility] Comment on above: Performed By: #### C VDAGS #### [facility] [address] [place] [address] Dr. Leni Hamlin EGFR-AF SALVADOREAN 43 mL/min/1.73m2 Critically low >=60 [facility] Comment on above: Performed By: #### C VDAGS #### [facility] [address] [place] [address] Dr. Leni Hamlin EGFR-NON AF SALVADOREAN 36 mL/min/1.73m2 Critically low >=60 [facility] Comment on above: Performed By: #### C VDAGS #### [facility] [address] [address] [address] Leni Hamlin Glucose [Mass/Vol] 222 mg/dL Critically high 74-106 [facility] Comment on above: Performed By: #### C VDAGS #### [facility] [address] [place] [address] Dr. Leni Hamlin Potassium [Moles/Vol] 4.2 mmol/L Normal 3.5-5.1 [facility] Comment on above: Performed By: #### C VDAGS #### [facility] [address] [place] [address] Dr. Leni Hamlin Sodium [Moles/Vol] 135 mmol/L Critically low 136-145 [facility] Comment on above: Performed By: #### C VDAGS #### [facility] [address] [place] [address] Dr. Leni Hamlin Urea nitrogen [Mass/Vol] 25.0 mg/dL Critically high 7.0-18.0 [facility] Comment on above: Performed By: #### C VDAGS #### [facility] [address] [place] [address] Dr. Leni Hamlin Urea nitrogen/Creatinine [Mass ratio] 13.4 mg/mg Normal [facility] Comment on above: Performed By: #### C VDAGS #### [facility] [address] [place] [address] Dr. Leni Hamlin Anion gap [Moles/Vol] 10.7 mmol/L Normal [facility] Comment on above: Performed By: #### B MP, BNP #### [facility] [address] [place] [address] Dr. Leni Hamlin Calcium [Mass/Vol] 8.2 mg/dL Critically low 8.5-10.1 [facility] Comment on above: Performed By: #### B MP, BNP #### [facility] [address] [place] [address] Dr. Leni Hamlin Chloride [Moles/Vol] 101 mmol/L Normal 98-107 [facility] Comment on above: Performed By: #### B MP, BNP #### [facility] [address] [address] [address] Leni Hamlin CO2 [Moles/Vol] 30.0 mmol/L Normal 21.0-32.0 [facility] Comment on above: Performed By: #### B MP, BNP #### [facility] [address] [address] [address] Leni Hamlin Creatinine [Mass/Vol] 1.49 mg/dL Critically high 0.70-1.30 [facility] Comment on above: Performed By: #### B MP, BNP #### [facility] [address] [address] [address] Leni Hamlin EGFR-AF SALVADOREAN 56 mL/min/1.73m2 Critically low >=60 [facility] Comment on above: Performed By: #### B MP, BNP #### [facility] [address] [place] [address] Dr. Leni Hamlin EGFR-NON AF SALVADOREAN 46 mL/min/1.73m2 Critically low >=60 [facility] Comment on above: Performed By: #### B MP, BNP #### [facility] [address] [place] [address] Dr. Leni Hamlin Glucose [Mass/Vol] 158 mg/dL Critically high 74-106 [facility] Comment on above: Performed By: #### B MP, BNP #### [facility] [facility] [address] [place] [address] Dr. Leni Hamlin Potassium [Moles/Vol] 5.7 mmol/L Critically high 3.5-5.1 [facility] Comment on above: Performed By: #### B MP, BNP #### [facility] [address] [place] [address] Dr. Leni Hamlin Sodium [Moles/Vol] 136 mmol/L Normal 136-145 [facility] Comment on above: Performed By: #### B MP, BNP #### [facility] [address] [place] [address] Dr. Leni Hamlin Urea nitrogen [Mass/Vol] 19.0 mg/dL Critically high 7.0-18.0 [facility] Comment on above: Performed By: #### B MP, BNP #### [facility] [address] [place] [address] Dr. Leni Hamlin Urea nitrogen/Creatinine [Mass ratio] 12.8 mg/mg Normal [facility] Comment on above: Performed By: #### B MP, BNP #### [facility] [address] [place] [address] Dr. Leni Hamlin BNPon 03-12-2022 Natriuretic peptide B (Bld) [Mass/Vol] 405.0 pg/mL Normal <=900.0 [facility] Comment on above: Performed By: #### B MP, BNP #### [facility] [address] [place] [address] Dr. Leni Hamlin CBC AUTO DIFFon 03-12-2022 BASO # 0.1 103/ul Normal 0.0-0.1 [facility] Comment on above: Performed By: #### C BC #### [facility] [address] [place] [address] Dr. Leni Hamlin Basophils/100 WBC (Bld) 0.3 % Normal 0.2-2.0 [facility] Comment on above: Performed By: #### C BC #### [facility] [address] [place] [address] Dr. Leni Hamlin EO # 0.0 103/ul Normal 0.0-0.7 [facility] Comment on above: Performed By: #### C BC #### [facility] [address] [place] [address] Dr. Leni Hamlin Eosinophils/100 WBC (Bld) 0.1 % Critically low 0.9-7.0 [facility] Comment on above: Performed By: #### C BC #### [facility] [address] [place] [address] Dr. Leni Hamlin Erythrocyte distribution width (RBC) [Ratio] 13.3 % Normal 11.0-15.0 [facility] Comment on above: Performed By: #### C BC #### [facility] [address] [place] [address] Dr. Leni Hamlin Hematocrit (Bld) [Volume fraction] 52.2 % Normal 42.0-54.0 [facility] Comment on above: Performed By: #### C BC #### [facility] [address] [place] [address] Dr. Leni Hamlin Hemoglobin (Bld) [Mass/Vol] 16.5 g/dL Normal 14.0-18.0 [facility] Comment on above: Performed By: #### C BC #### [facility] [address] [place] [address] Dr. Leni Hamlin IG # 0.19 10e3/ul Critically high 0.00-0.03 [facility] Comment on above: Performed By: #### C BC #### [facility] [address] [place] [address] Dr. Leni Hamlin IG % 1.0 % Critically high 0.0-0.5 [facility] Comment on above: Performed By: #### C BC #### [facility] [address] [place] [address] Dr. Leni Hamlin LYMPH # 0.8 103/ul Critically low 1.2-3.8 [facility] Comment on above: Performed By: #### C BC #### [facility] [address] [place] [address] Dr. Leni Hamlin Lymphocytes/100 WBC (Bld) 3.8 % Critically low 20.5-60.0 [facility] Comment on above: Performed By: #### C BC #### [facility] [address] [place] [address] Dr. Leni Hamlin MANUAL DIFF REQ NO Normal [facility] Comment on above: Performed By: #### C BC #### [facility] [address] [place] [address] Dr. Leni Hamlin MCH (RBC) [Entitic mass] 29.6 pg Normal 25.9-34.0 [facility] Comment on above: Performed By: #### C BC #### [facility] [address] [place] [address] Dr. Leni Hamlin MCHC (RBC) [Mass/Vol] 31.6 g/dL Normal 29.9-35.2 [facility] Comment on above: Performed By: #### C BC #### [facility] [address] [address] [address] Leni Hamlin MCV (RBC) [Entitic vol] 93.7 fL Normal 80.0-94.0 [facility] Comment on above: Performed By: #### C BC #### [facility] [address] [address] [address] Leni Hamlin MONO # 1.6 103/ul Critically high 0.3-0.8 [facility] Comment on above: Performed By: #### C BC #### [facility] [address] [address] [address] Leni Hamlin Monocytes/100 WBC (Bld) 8.3 % Normal 1.7-12.0 [facility] Comment on above: Performed By: #### C BC #### [facility] [address] [address] [address] Leni Hamlin NEUT # 17.0 103/ul Critically high 1.4-6.5 [facility] Comment on above: Performed By: #### C BC #### [facility] [address] [address] [address] Leni Hamlin Neutrophils/100 WBC (Bld) 86.5 % Critically high 43.0-75.0 [facility] Comment on above: Performed By: #### C BC #### [facility] [address] [address] [address] Leni Hamlin Platelet mean volume (Bld) [Entitic vol] 10.0 fL Normal 9.5-13.5 [facility] Comment on above: Performed By: #### C BC #### [facility] [address] [address] [address] Leni Hamlin PLT 194 103/ul Normal 150-450 [facility] Comment on above: Performed By: #### C BC #### [facility] [address] [address] [address] Leni Hamlin RBC 5.57 106/ul Normal 4.70-6.10 [facility] Comment on above: Performed By: #### C BC #### [facility] [address] [place], [place] [address] Dr. Leni Hamlin WBC 19.7 103/ul Critically high 4.0-11.0 [facility] Comment on above: Performed By: #### C BC #### [facility] [address] [place], [place] [address] CSPINE WO CONon [...] CIERA HERNÁNDEZ Date: 2022-03-12 13:42 Normal [facility] CT HEAD WO CONon 03-12-2022 CT HEAD [...] SUSAN KC Date: 2022-03-12 13:20 Normal [facility] CTA CHEST WO W CONon 022 CTA [...] CIERA HERNÁNDEZ Date: 2022-03-12 14:46 Normal [facility] CULTURE BLOODon 03-12-2022 Microscopic examination of blood, culture Culture Observations: NO GROWTH AT 5 DAYS. Normal [facility] Comment on above: Performed By: #### C MP, CRP #### [facility] [address] [place] [address] Dr. Leni Hamlin Microscopic examination of blood, culture Culture Observations: NO GROWTH AT 5 DAYS. Normal [facility] Comment on above: Performed By: #### C MP, CRP #### [facility] [address] [address] [address] Leni Hamlin Covid-19 PCR (CVDTB)on SARS-CoV-2 (COVID-19) RNA VENESSA+probe Ql (Unsp spec) Not detected Normal NOT DETECTED [facility] Comment on above: Result Comment: When diagnostic testing is negative, the possibility of a false negative should be considered in the context of a patient's recent exposures and the presence of clinical signs and symptoms consistent with SARS-CoV-2. This test is not yet approved or cleared by the [place] Food and Drug Administration (FDA). This test was developed by [employer], [place], [place]. The performance characteristics of this test were validated by [facility]. The results are not intended to be used as the sole means for clinical diagnosis or patient management decisions. The [facility] is authorized under Clinical Laboratory Improvement Amendments [...] for this test is supported by the [place] of Health and Human Service's declaration that [...] used). Performed By: #### C RP #### [facility] [address] [place] [address] Dr. Leni Hamlin D-DIMERon 03-12-2022 D-DIMER 6.00 mg/L FEU Critically high 0.19-0.50 [facility] Comment on above: Performed By: #### B MP, BNP #### [facility] [address] [place] [address] Dr. Leni Hamlin D-DIMER COMMENTS SEE BELOW Normal [facility] [...] Performed By: #### B MP, BNP #### [facility] [address] [place] [address] Dr. Leni Hamlin ER URINE PROFILEon 2 Bilirubin Ql (U) Negative Normal NEGATIVE [facility] Comment on above: Performed By: #### C RP #### [facility] [address] [place] [address] Dr. Leni Hamlin Clarity (U) CLEAR Normal CLEAR [facility] Comment on above: Performed By: #### C RP #### [facility] [address] [place] [address] Dr. Leni Hamlin Color (U) YELLOW Normal YELLOW [facility] Comment on above: Performed By: #### C RP #### [facility] [address] [place] [address] Dr. Leni ELLIS A micrscopic examination will be performed if indicated. Normal [facility] Comment on above: Performed By: #### C RP #### [facility] [address] [place] [address] Dr. Leni Hamlin Glucose Ql (U) Negative Normal NEGATIVE [facility] Comment on above: Performed By: #### C RP #### [facility] [address] [place] [address] Dr. Leni Hamlin Hemoglobin Ql (U) SMALL Abnormal NEGATIVE [facility] Comment on above: Performed By: #### C RP #### [facility] [address] [place] [address] Dr. Leni Hamlin Ketones Ql (U) Negative Normal NEGATIVE [facility] Comment on above: Performed By: #### C RP #### [facility] [address] [place] [address] Dr. Leni Hamlin LEUKOCYTES Negative Normal NEGATIVE [facility] Comment on above: Performed By: #### C RP #### [facility] [address] [place] [address] Dr. Leni Hamlin Nitrite Ql (U) Negative Normal NEGATIVE [facility] Comment on above: Performed By: #### C RP #### [facility] [address] [place] [address] Dr. Leni Hamlin pH (U) 5.5 [pH] Normal 5-9 [facility] Comment on above: Performed By: #### C RP #### [facility] [address] [place] [address] Dr. Leni Hamlin SPEC GRAVITY <=1.005 Abnormal 1.005-<=1.025 [facility] Comment on above: Performed By: #### C RP #### [facility] [address] [place] [address] Dr. Leni Hamlin UA PROTEIN >300 Abnormal NEGATIVE/ TRACE [facility] Comment on above: Performed By: #### C RP #### [facility] [address] [place] [address] Dr. Leni Hamlin UR MICRO IND INDICATED Normal [facility] Comment on above: Performed By: #### C RP #### [facility] [address] [place] [address] Dr. Leni Hamlin Urobilinogen Qn (U) 0.2 {Stacy'U}/dL Normal 0.2 - 1. 0 [facility] Comment on above: Performed By: #### C RP #### [facility] [address] [place] [address] Dr. Leni Hamlin LACTATE/LACTIC ACIDon 2021 Lactate [Moles/Vol] 0.5 mmol/L Normal 0.4-2.0 [facility] Comment on above: Performed By: #### B MP, BNP #### [facility] [address] [place] [address] Dr. Leni Hamlin Lactate [Moles/Vol] 1.6 mmol/L Normal 0.4-2.0 [facility] Comment on above: Performed By: #### L ACT #### [facility] [address] [place] [address] Dr. Leni Hamlin PROF 14(COMP METB)on 022 Albumin [Mass/Vol] 3.1 g/dL Critically low 3.4-5.0 [facility] Comment on above: Performed By: #### B MP, BNP #### [facility] [address] [address] [address] Leni Hamlin Albumin/Globulin [Mass ratio] 0.8 {ratio} Normal [facility] Comment on above: Performed By: #### B MP, BNP #### [facility] [address] [address] [address] Leni Hamlin ALP [Catalytic activity/Vol] 52 U/L Normal 46-116 [facility] Comment on above: Performed By: #### B MP, BNP #### [facility] [address] [place] [address] Dr. Leni Hamlin ALT [Catalytic activity/Vol] 27 U/L Normal 16-63 [facility] Comment on above: Performed By: #### B MP, BNP #### [facility] [address] [place] [address] Dr. Leni Hamlin Anion gap [Moles/Vol] 12.9 mmol/L Normal [facility] Comment on above: Performed By: #### B MP, BNP #### [facility] [address] [address] [address] Leni Hamlin AST [Catalytic activity/Vol] 14 U/L Critically low 15-37 [facility] Comment on above: Performed By: #### B MP, BNP #### [facility] [address] [place] [address] Dr. Leni Hamlin Bilirubin [Mass/Vol] 1.2 mg/dL Critically high 0.2-1.0 [facility] Comment on above: Performed By: #### B MP, BNP #### [facility] [address] [place] [address] Dr. Leni Hamlin Calcium [Mass/Vol] 8.2 mg/dL Critically low 8.5-10.1 [facility] Comment on above: Performed By: #### B MP, BNP #### [facility] [address] [place] [address] Dr. Leni Hamlin Chloride [Moles/Vol] 99 mmol/L Normal 98-107 [facility] Comment on above: Performed By: #### B MP, BNP #### [facility] [address] [place] [address] Dr. Leni Hamlin CO2 [Moles/Vol] 28.4 mmol/L Normal 21.0-32.0 [facility] Comment on above: Performed By: #### B MP, BNP #### [facility] [address] [place] [address] Dr. Leni Hamlin Creatinine [Mass/Vol] 1.44 mg/dL Critically high 0.70-1.30 [facility] Comment on above: Performed By: #### B MP, BNP #### [facility] [address] [place] [address] Dr. Leni Hamlin EGFR-AF SALVADOREAN 58 mL/min/1.73m2 Critically low >=60 [facility] Comment on above: Performed By: #### B MP, BNP #### [facility] [address] [place] [address] Dr. Leni Hamlin EGFR-NON AF [place]VADOREAN 48 mL/min/1.73m2 Critically low >=60 [facility] Comment on above: Performed By: #### B MP, BNP #### [facility] [address] [place] [address] Dr. Leni Hamlin Globulin (S) [Mass/Vol] 3.8 g/dL Normal [facility] Comment on above: Performed By: #### B MP, BNP #### [facility] [address] [place] [address] Dr. Leni Hamlin Glucose [Mass/Vol] 137 mg/dL Critically high 74-106 [facility] Comment on above: Performed By: #### B MP, BNP #### [facility] [address] [place] [address] Dr. Leni Hamlin Potassium [Moles/Vol] 4.3 mmol/L Normal 3.5-5.1 [facility] Comment on above: Performed By: #### B MP, BNP #### [facility] [address] [place] [address] Dr. Leni Hamlin Protein [Mass/Vol] 6.9 g/dL Normal 6.1-8.2 [facility] Comment on above: Performed By: #### B MP, BNP #### [facility] [address] [place] [address] Dr. Leni Hamlin Sodium [Moles/Vol] 136 mmol/L Normal 136-145 [facility] Comment on above: Performed By: #### B MP, BNP #### [facility] [address] [place] [address] Dr. Leni Hamlin Urea nitrogen [Mass/Vol] 15.0 mg/dL Normal 7.0-18.0 [facility] Comment on above: Performed By: #### B MP, BNP #### [facility] [address] [place] [address] Dr. Leni Hamlin Urea nitrogen/Creatinine [Mass ratio] 10.4 mg/mg Normal [facility] Comment on above: Performed By: #### B MP, BNP #### [facility] [address] [place] [address] Dr. Leni Hamlin PROTIMEon 03-12-2022 INR Coag (PPP) [Relative time] 1.07 {INR} Normal [facility] Comment on above: Performed By: #### B MP, BNP #### [facility] [address] [place] [address] Dr. Leni Hamlin INR GUIDELINES SEE BELOW Normal [facility] Comment on above: Result Comment: WAQAS RED INR: 2.0 - 3.0 CONDITIONS NOT LISTED BELOW 2.5 - 3.5 FOR PROSTHETIC HEART VALVE REPLACEMENT 2.5 - 3.5 RECURRENT THROMBOSIS Performed By: #### B MP, BNP #### [facility] [address] [place] [address] Dr. Leni Hamlin PT Coag (PPP) [Time] 11.5 s Normal 9.0-11.6 [facility] Comment on above: Performed By: #### B MP, BNP #### [facility] [address] [place] [address] Dr. Leni Hamlin TROPONIN, HIGH SENSITIVITYon 03-12-2022 HSTROP 12.8 pg/mL Normal 4.0-76.1 [facility] Comment on above: Result Comment: CUT- OFF POINTS HAVE BEEN ESTABLISHED BASED ON THE FOURTH UNIVERSAL DEFINITIONS OF MYOCARDIAL INFARCTION. THE UPPER REFERENCE LIMIT (URL) OF TROPONIN, DEFINED THE 99TH PERCENTILE OF cTnI DISTRIBUTION IN A REFERENCE POPULATION, HAS BEEN CONFIRMED THE DECISION THRESHOLD FOR MS DIAGNOSIS. Performed By: #### B MP, BNP #### [facility] [address] [place] [address] Dr. Leni Hamlin URINE MICROSCOPIC ONLYon BACTERIA NONE SEEN Normal NONE SEEN [facility] Comment on above: Performed By: #### C RP #### [facility] [address] [place] [address] Dr. Leni Hamlin Bacteria identified Cx Nom (U) NOT INDICATED Normal [facility] Comment on above: Performed By: #### C RP #### [facility] [address] [place] [address] Dr. Leni Hamlin CAST NONE SEEN Normal NONE SEEN [facility] Comment on above: Performed By: #### C RP #### [facility] [address] [place] [address] Dr. Leni Hamlin Crystals LM Nom (Urine sed) NONE SEEN Normal NONE SEEN [facility] Comment on above: Performed By: #### C RP #### [facility] [address] [place] [address] Dr. Leni Hamlin Epithelial cells LM Ql (Urine sed) NONE SEEN Normal NONE SEEN /RARE [facility] Comment on above: Performed By: #### C RP #### [facility] [address] [place] [address] Dr. Leni Hamlin MUCOUS MODERATE Abnormal NONE SEEN [facility] Comment on above: Performed By: #### C RP #### [facility] [address] [place] [address] Dr. Leni Hamlin RBC 2-5 Abnormal 0-2 [facility] Comment on above: Performed By: #### C RP #### [facility] [address] [address] [address] Leni Hamlin WBC NONE SEEN Normal NONE SEEN [facility] Comment on above: Performed By: #### C RP #### [facility] [address] [id number] Leni Hamlin XR RIBS RT PA [...] CIERA HERNÁNDEZ Date: 2022-03-12 13:35 Normal [facility]09 SARS-CoV-2 (COVID-19) RNA VENESSA+probe Ql (Unsp spec) Not detected Normal NOT DETECTED [facility] Comment on above: Result Comment: This test is not yet approved or cleared by the [place] FDA. When there are no FDA-approved or cleared tests available, and other criteria are met, FDA can make tests available under an emergency access mechanism called an Emergency Use Authorization (EUA). The EUA for this test is supported by the [place] of Health and Human Service's (HHS's) declaration [...] SARS-CoV-2. Performed By: #### C RP #### [facility] [address] [place] [address] Dr. Leni Hamlin INFLUENZA A AND B AGon 01-25 [facility] SEE BELOW Normal [facility] Comment on above: Result Comment: Nega tive for Flu A protein angiten. Infection due to Flu A cannot be ruled out. Flu A angiten in the sample may be below the detection limit of the test. Performed By: #### C RP #### [facility] [address] [place] [address] Dr. Leni Hamlin [facility] SEE BELOW Normal [facility] Comment on above: Result Comment: Nega tive for Flu B protein antigen. Infection due to Flu B cannot be ruled out. Flu B antigen in the sample may be below the detection limit of the test. Performed By: #### C RP #### [facility] [address] [place] [address] Dr. Leni Hamlin INFLUENZA A AG Negative Normal NEGATIVE SEE COMMENT [facility] Comment on above: Performed By: #### C RP #### [facility] [address] [place] [address] Dr. Leni Hamlin INFLUENZA B AG Negative Normal NEGATIVE SEE COMMENT [facility] Comment on above: Performed By: #### C RP #### [facility] [address] [place] [address] Dr. Leni Hamlin INTERNAL CONTROLS Within Normal Limits Normal Wi thin Normal Limits [facility] Comment on above: Performed By: #### C RP #### [facility] [address] [place] [address] Dr. Leni Hamlin COVID-19 Antigenon 2 COVID-19 [...] its performance Cindy Disclaimer characteristic determined by [employer] and Cindy Disclaimer validated at [facility]. This Cindy Disclaimer test has not been [...] is terminated or revoked sooner. PERFORMED BY: [place] [address] PATHOLOGIST [employer] ZOHAIB JEWELL M.D. Normal [facility] Comment on above: Performed By: #### C OVID-19 CINDY, SOFIANEG #### [facility] [address] [place] [address] Cindy Ag Negativeon 12-01-19 Cindy Ag Negative Negative Normal Negative [facility] Comment on above: Result Comment: This is a duplicate Cindy SARS Antigen (JENNIFER) result to be used for statistical tracking purpose only. PERFORMED BY: [place] [address] PATHOLOGIST [employer] ZOHAIB JEWELL M.D. Performed By: #### C OVID-19 CINDY, SOFIANEG #### [facility] [address] [place] [address] Encounters Encounter Date Encounter Type Care Provider Facility Start: 04-24-2024 End: 04-24-2024 ambulatory [facility] Start: 03-30-2024 End: 03-31-2024 ambulatory Urvashi Rawls MD Facility:[facility] Start: 03-23-2024 End: 03-23-2024 ambulatory [facility] Start: 03-02-2024 End: 03-03-2024 ambulatory Urvashi Rawls MD Facility:[facility] Start: 02-26-2024 End: 02-26-2024 ambulatory [facility] Start: 01-31-2024 End: 01-31-2024 ambulatory [facility] Start: 01-27-2024 End: 01-28-2024 ambulatory Urvashi Rawls MD Facility: [facility] Start: 12-30-2023 End: 12-31-2023 ambulatory Urvashi Rawls MD Facility:[facility] Start: 09-16-2023 End: 09-17-2023 ambulatory Urvashi Rawls MD Facility: [facility] Start: 08-27-2023 End: 08-27-2023 ambulatory [facility] Start: 07-09-2023 End: 07-09-2023 ambulatory [facility] Start: 06-24-2023 End: 06-25-2023 ambulatory Urvashi Rawls MD Facility: [facility] Start: 06-10-2023 End: 06-11-2023 ambulatory Urvasih Rawls MD Facility: [facility] Start: 05-27-2023 End: 05-28-2023 ambulatory Urvashi Rawls MD Facility: [facility] Start: 05-13-2023 End: 05-13-2023 ambulatory [facility] Start: 05-08-2023 ambulatory [facility] Start: 01-16-2023 End: 01-16-[address] [...] Start: 03-22-2022 End: 03-23-2022 ambulatory MODESTO BECERRA Facility:[facility] Start: 03-20-2022 End: 03-21-[address] ELLIOT CHESTER . Facility:[facility] Start: 03-13-2022 End: 03-15-2022 Evaluation and management of inpatient DR ELLIOT CHESTER . Facility:[facility] Start: 01-25-2022 End: 01-25-2022 ambulatory GAGANDEEP PAREDES Facility: Payers Date Payer Category Payer Medicare 2022 Unknown 1959 Medicare [id number] Self-pay 1959 Unknown [id number] 1948 Unknown [id number] 2.16.8 40.1.238817.3.579.2.647 1948 Unknown [id number] 2.16.84 0.1.173050.3.579.2.593 1948 Unknown [id number] 2.16.84 0.1.905633.3.579.2.593 1948 Unknown [id number] 2.16.84 0.1.859964.3.579.2.593 1948 Unknown [id number] 2.16.84 0.1.541689.3.579.2.593 1948 Unknown [id number] 2.16.84 0.1.412935.3.579.2.593 1948 Unknown [id number] 2.16.84 0.1.118922.3.579.2.593 1948 Unknown [id number] 2.16.84 0.1.782223.3.579.2.593 1948 Unknown [id number] 2.16.84 0.1.000444.3.579.2.593 1948 Unknown [id number] 2.16.84 0.1.970923.3.579.2.593 1948 Unknown [id number] 2.16.84 0.1.496433.3.579.2.593 1948 Unknown [id number] 2.16.84 0.1.815394.3.579.2.593 1948 Unknown [id number] 2.16.84 0.1.970955.3.579.2.593 1948 Unknown [id number] 2.16.84 0.1.142007.3.579.2.593 1948 Unknown [id number] 2.16. 840.1.987313.3.579.2.196 1948 Unknown [id number] 2.16. 840.1.595812.3.579.2.196 1948 Unknown [id number] 2.16. 840.1.474203.3.579.2.196 1948 Unknown [id number] 2.16. 840.1.376349.3.579.2.196 1948 Unknown [id number] 2.16. 840.1.394237.3.579.2.196 1948 Unknown [id number] 2.16. 840.1.937061.3.579.2.196 1948 Unknown [id number] 2.16. 840.1.008915.3.579.2.196 1948 Unknown [id number] 2.16. 840.1.546358.3.579.2.196 Progress note 04-24-2024 Note Date & Type Note Facility 04-24-2024 Note [place] [facility] - [facility] Subjective Brian Oneal is a 74 [...] in February 2024 while admitted to the [facility]. He was started on Eliquis for anticoagulation given elevated [id number] score. He has been having episodes of blood in stools. He is status post pacemaker placement. He has peripheral vascular disease that is managed medically. He was recently evaluated by his primary supervisor denture department Dr. Major Monsalve and a stress test [...] Rate 03/22/2022 76 Atrial Rate 03/22/2022 76 [place] Interval 03/22/2022 162 QRS DURATION 03/22/2022 144 QT Interval 03/22/2022 392 QTC CALCULATION(BAZETT) 03/22/2022 441 P [place] 03/22/2022 -14 R-[place] 03/22/2022 -20 T Wave [place] 03/22/2022 -6 Diagnosis 03/22/2022 Value:Normal sinus rhythm Right bundle branch block Abnormal ECG When compared with ECG of (more content not included)... [facility] Progress note 01-31-2024 Note Date & Type Note Facility 01-31-2024 Note [place] [facility] Note [facility] Reason for visit: follow up for [...] was initiated by the patient and conducted oal-srbf-uf-face with use of audio-only real time telephone [...] PVCs with bur (more content not included)... [facility] Progress note 08-27-2023 Note Date & Type [...] $70 for a 30 day supply at [facility]. Lipid profile was done in May 2023. [facility] Progress note 08-27-2023 Note Date & Type Note Facility 08-27-2023 Note [place] [facility] Reason for visit: follow up for [...] was initiated by the patient and conducted egb-xnqy-vo-face with use of audio-only real time telephone [...] since his prost (more content not included)... [facility] Progress note 05-13-2023 Note Date & Type Note Facility 05-13-2023 Note Patient here c/o LE numbness and pain during ambulation and standing. He had EMG and SAGAR's in March 2023. He sees Dr. Chester this afternoon. Recently saw neurosurgery and vascular surgery at [facility]. Dr. Quinonez started him on low dose aspirin and atorvastatin last week, which he states he has not started yet. He denies chest pain, SOB, and syncope. Review of Systems Constitutional: Positive for malaise/fatigue. Cardiovascular: Positive for claudication and leg swelling. Musculoskeletal: Positive for arthritis, back pain, muscle weakness and myalgias. All other systems reviewed and are negative. [facility] Progress note 05-13-2023 Note Date & Type Note Facility 05-13-2023 Note [place] [facility] Reason for visit: lower extremity claudication [...] was initiated by the patient and conducted jwz-ezme-dp-face with use of audio-only real time telephone [...] night many times (more content not included)... [facility] Progress note 05-08-2023 Note Date & Type [...] will see him in about 3 months. [facility] Progress note 05-08-2023 Note Date & Type [...] both neurogenic claudication and vasculogenic claudication. His SGAAR in the right side is 0.89 and on the left side is 0.81. He has mild occlusive disease bilaterally. I discussed with him being on aspirin (more content not included)... [facility] Clinical Note 03-23-2022 Note Date & Type [...] by: ALONSO MASON Date: 2022-03-23 12:58 [facility] Summary Purpose Family History No Family History [...] AUTHOR'S ORGANIZ ATION 04/23/2022 [facility] DATE CREATED AUTHOR AUTHOR'S ORGANIZ ATION 01/18/2023 [facility] DATE CREATED AUTHOR AUTHOR'S ORGANIZ ATION 04/05/2024 [facility] DATE CREATED AUTHOR AUTHOR'S ORGANIZ ATION 04/26/2024 [facility] FOR RECORDS PERTAINING TO PATIENTS WHO ARE [...] PRIMARY CLINICAL RECORDS. [facility] [email or web address] provides no warranty or guarantee of the accuracy or completeness of information in this document.
== END 2024-05-08 13:08 | disposition home or self-care (01) ==
LOC: LAB 13:10
PROVIDERS: PCP Family Medicine; Visit Provider Family Medicine
DX: D64.9 Anemia, unspecified (principal)
CPT/HCPCS: 36415; 82728; 83540

== ENCOUNTER 2024-05-12 17:00 | Outpatient (OUT) | payer MEDICARE, OTHER, SELFPAY ==
--- OUTSIDE RECORDS SUMMARY | 2024-05-12 17:10 | XMS_ITS ---
Patient Summarization (C-CDA 2.1 CCD) Created on: May 12, 2024 BRIAN ONEAL : 1950 Sex: Male Author Organization Sample organization Care Team Providers Care Polysomnographer Name Role Phone MODESTO BECERRA Admitting Unavailable [...] DR ZARATE Admitting Unavailable Giedraitis MD, Andrius Jakeytautclaritza Attending Unavailable Giedraitis , Andrius Vytautclaritza Attending Unavailable Giedraitis MD, Andrius Vytautas Attending Unavailable Giedraitis MD, Andrius Vytautas Attending Unavailable Giedraitis MD, Andrius Vytautas Attending Unavailable Giedraitis , Andrius Vytautas Attending Unavailable Giedraitis , Andrius Vytautas Attending Unavailable Giedraitis , Andrius Vytautas Attending Unavailable MAJOR MONSALVE Attending Unavailable MODESTO BECERRA Referring Unavailable MAJOR MONSALVE Attending Unavailable ELODIA LITTLE Attending Unavailable MAJOR MONSALVE Attending Unavailable MODESTO BECERRA Referring Unavailable MAJOR MONSALVE Attending Unavailable Allergies Allergy Classification Reported Allergen(s) Allergy Type Date of Onset Reaction(s) Facility (2 sources) Azithromycin; Translations: [AZITHROMYCIN] Drug Allergy 03-22-2022 [facility] Repository (2 sources) Azithromycin Drug Allergy 03-03-2015 [facility] Repository (1 source) Ciprofloxacin Drug Allergy 12-18-2022 [facility] Repository Encounters Encounter Date Encounter Type Care Provider Facility Start: 05-07-2024 ambulatory Facility:Jorge Luis García Start: 04-24-2024 End: 04-24-2024 [facility] Start: 03-30-2024 End: 03-31-2024 ambulatory Andrius Jakeytautas Macielitis Facility:[facility] Start: 03-23-2024 End: 03-23-2024 ambulatory [facility] Start: 03-02-2024 End: 03-03-2024 ambulatory Andrius Jakeytautclaritza Stitis Facility:[facility] Start: 02-26-2024 End: 02-26-2024 ambulatory [facility] Start: 01-31-2024 End: 01-31-2024 ambulatory [facility] Start: 01-27-2024 End: 01-28-2024 ambulatory Andrius Vytautas Macielitis Facility:[facility] Start: 12-30-2023 End: 12-31-2023 ambulatory Andcaroleus Jakeytautas Macielitis Facility:[facility] Start: 09-16-2023 End: 09-17-2023 ambulatory Andrius Jakeytautas Joseraitis Facility:[facility] Start: 08-27-2023 End: 08-27-2023 ambulatory [facility] Start: 07-09-2023 End: 07-09-2023 ambulatory [facility] Start: 06-24-2023 End: 06-25-2023 ambulatory Andrius Jakeytautas Githeronitis Facility:[facility] Start: 06-10-2023 End: 06-11-2023 ambulatory Andrius Vytautas Giedraitis Facility:[facility] Start: 05-27-2023 End: 05-28-2023 ambulatory Andrius Jakeytautas Giedraitis Facility:[facility] Start: 05-13-2023 End: 05-13-2023 ambulatory [facility] Start: 01-16-2023 End: 01-16-[address] ELLIOT CHESTER . Facility:[facility] Start: 12-27-[address] ELLIOT CHESTER . Facili ty:[facility] Start: 12-18-2022 End: 12-18-[address] CLIFTON JHAVERI Facility:[facility] Start: 10-01-2022 End: 10-03-2022 Evaluation and management of inpatient DR ELLIOT CHESTER . Facility:[facility] Start: 09-10-2022 End: 09-10-[address] ELLIOT CHESTER . Facility:[facility] Start: 08-24-[address] ELLIOT CHESTER . [facility] ty:[facility] Start: 05-22-2022 End: 05-22-2022 ambulatory GAGANDEEP PAREDES Facility:[facility] Start: 05-21-2022 End: 05-21-2022 ambulatory GAGANDEEP PAREDES Facility:[facility] Start: 04-23-2022 End: 04-23-[address] ELLIOT CHESTER . Facility:[facility] Start: 03-23-2022 End: 03-24-2022 ambulatory MODESTO BECERRA Facility:[facility] Start: 03-22-2022 End: 03-23-2022 ambulatory MODESTO BECERRA Facility:[facility] Start: 03-20-2022 End: 03-21-[address] ELLIOT CHESTER . Facility:[facility] Start: 03-13-2022 End: 03-15-2022 Evaluation and management of inpatient DR ELLIOT CHESTER . Facility:[facility] Start: 01-25-2022 End: 01-25-2022 ambulatory GAGANDEEP PAREDES Facility: Payers Date Payer Category Payer Medicare 2022 Unknown 1961 Medicare [id number] 1961 Self-pay 1959 Unknown [id number] 1950 Unknown [id number] 2.16.8 [id number] 1950 Unknown [id number] 2.16.84 0.1.294701.3.579.2.593 1950 Unknown [id number] 2.16.84 0.1.359445.3.579.2.593 1950 Unknown [id number] 2.16.84 0.1.358178.3.579.2.593 1950 Unknown [id number] 2.16.84 0.1.862931.3.579.2.593 1950 Unknown [id number] 2.16.84 0.1.792786.3.579.2.593 1950 Unknown [id number] 2.16.84 0.1.058026.3.579.2.593 1950 Unknown [id number] 2.16.84 0.1.524670.3.579.2.593 1950 Unknown [id number] 2.16.84 0.1.621992.3.579.2.593 1950 Unknown [id number] 2.16.84 0.1.003705.3.579.2.593 1950 Unknown [id number] 2.16.84 0.1.332075.3.579.2.593 1950 Unknown [id number] 2.16.84 0.1.029186.3.579.2.593 1950 Unknown [id number] 2.16.84 0.1.410122.3.579.2.593 1950 Unknown [id number] 2.16.84 0.1.180970.3.579.2.593 1950 Unknown [id number] 2.16. 840.1.318359.3.579.2.196 1950 Unknown [id number] 2.16. 840.1.781120.3.579.2.196 1950 Unknown [id number] 2.16. 840.1.528382.3.579.2.196 1950 Unknown [id number] 2.16. 840.1.408624.3.579.2. 1950 Unknown [id number] 2.16. 840.1.784634.3.579.2.196 1950 Unknown [id number] 2.16. 840.1.476976.3.579.2.196 1950 Unknown [id number] 2.16. 840.1.971321.3.579.2.196 1950 Unknown [id number] 2.16. 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; Translations: [OTH JAIL CURRENT [...] Test Name Value Interpretation Reference Range Facility Orders Onlyon 05-08-2024 Orders Only [id number] Wayne Oneal 1950 M Date Provider Department Center 05/08/2024 MARTI CAPONE Family History Problem Relation Age of Onset Coronary artery disease Mother Family Status - Relation Status Age at Mother Normal [facility] Office Visiton 04-24-2024 Follow-up visit [id number] Wayne Oneal A 1950 M Date Provider Department Center 04/24/2024 ELODIA VALLADARES Family History Problem Relation Age of Onset Coronary artery disease Mother Family Status - Relation Status Age at Mother Level of Service:53105 OR OFFICE/OUTPATIENT ESTABLISHED HIGH MDM 40 MIN Normal [facility] Office Visiton 03-23-2024 Follow-up visit [id number] Wayne Oneal A 1950 M Date Provider [facility] Problem Relation Age of Onset Coronary artery disease Mother Family Status - Relation Status Age at Mother Level of Service:32040 OR OFFICE/OUTPATIENT ESTABLISHED MOD MDM 30 MIN Normal [facility] Office Visiton 01-31-2024 Follow-up visit [id number] Wayne Oneal A 1950 M Date Provider [facility] Family History Problem Relation Age of Onset Coronary artery disease Mother Family Status - Relation Status Age at Mother Level of Service:67186 OR OFFICE/OUTPATIENT ESTABLISHED LOW MDM 20 MIN Normal [facility] Office Visiton 08-27-2023 Follow-up visit [id number] Wayne Oneal A 1950 M Date Provider Department [facility] Family History Problem Relation Age of Onset Coronary artery disease Mother Family Status - Relation Status Age at Mother Level of Service:44202 OR OFFICE/OUTPATIENT ESTABLISHED LOW MDM 20-29 MIN Normal [facility] Office Visiton 05-13-2023 Follow-up visit [id number] Wayne Oneal A 1950 M Date Provider Department Center [facility]2023 [facility] Family History Problem Relation Age of Onset Coronary artery disease Mother Family Status - Relation Status Age at Mother Level of Service:33454 OR OFFICE/OUTPATIENT ESTABLISHED MOD MDM 30-39 MIN Normal [facility] Orders Onlyon 05-13-2023 Orders Only [id number] Wayne Oneal 1950 M Date Provider Department Center 05/13/2023 KaseyBRAYAN ZHAO [facility] Family History Problem Relation Age of Onset Coronary artery disease Mother Family Status - Relation Status Age at Mother Normal [facility] Covid-19 PCR (CVDTB)on SARS-CoV-2 (COVID-19) RNA VENESSA+probe [...] for this test is supported by the [place] of Health and Human Service's declaration that [...] By: #### B MP, BNP #### [facility] [address] [place] [address] Dr. Leni Hamlin INFLUENZA A AND B AGon 01-16 [facility] SEE BELOW Normal [facility] Comment on above: Result Comment: Nega tive for Flu A protein angiten. Infection due to Flu A cannot be ruled out. Flu A angiten in the sample may be below the detection limit of the test. Performed By: #### C RP #### [facility] [address] [place] [address] Dr. Leni Hamlin [facility] SEE BELOW Normal [facility] Comment on above: Result Comment: Nega tive for Flu B protein antigen. Infection due to Flu B cannot be ruled out. Flu B antigen in the sample may be below the detection limit of the test. Performed By: #### C RP #### [facility] [address] [address] [address] Leni Halmin INFLUENZA A AG Negative Normal NEGATIVE SEE COMMENT [facility] Comment on above: Performed By: #### C RP #### [facility] [address] [place], [place] [address] Dr. Leni Hamlin INFLUENZA B AG Negative Normal NEGATIVE SEE COMMENT [facility] Comment on above: Performed By: #### C RP #### [facility] [address] LSPINE WO CONon CT LSPINE WO CON EXAMINATION: CT LSPINE [...] HERNÁNDEZ Date: 2022-12-18 15:56 Normal [facility] CBC AUTO DIFFon 10-03-2022 BASO # 0.1 103/ul Normal 0.0-0.1 [facility] Comment on above: Performed By: #### B MP, BNP #### [facility] [address] [place] [address] Dr. Leni Hamlin Basophils/100 WBC (Bld) 0.5 % Normal 0.2-2.0 [facility] Comment on above: Performed By: #### B MP, BNP #### [facility] [address] [place] [address] Dr. Leni Hamlin EO # 0.3 103/ul Normal 0.0-0.7 [facility] Comment on above: Performed By: #### B MP, BNP #### [facility] [address] [place] [address] Dr. Leni Hamlin Eosinophils/100 WBC (Bld) 2.2 % Normal 0.9-7.0 [facility] Comment on above: Performed By: #### B MP, BNP #### [facility] [address] [place] [address] Dr. Leni Hamlin Erythrocyte distribution width (RBC) [Ratio] 13.3 % Normal 11.0-15.0 [facility] Comment on above: Performed By: #### B MP, BNP #### [facility] [address] [place] [address] Dr. Leni Hamlin Hematocrit (Bld) [Volume fraction] 46.9 % Normal 42.0-54.0 [facility] Comment on above: Performed By: #### B MP, BNP #### [facility] [address] [place] [address] Dr. Leni Hamlin Hemoglobin (Bld) [Mass/Vol] 15.3 g/dL Normal 14.0-18.0 [facility] Comment on above: Performed By: #### B MP, BNP #### [facility] [address] [place] [address] Dr. Leni Hamlin IG # 0.18 10e3/ul Critically high 0.00-0.03 [place] Comment on above: Performed By: #### B MP, BNP #### [facility] [address] [place] [address] Dr. Leni Hamlin IG % 1.3 % Critically high 0.0-0.5 [facility] Comment on above: Performed By: #### B MP, BNP #### [facility] [address] [address] [address] Leni Hamlin LYMPH # 1.9 103/ul Normal 1.2-3.8 [facility] Comment on above: Performed By: #### B MP, BNP #### [facility] [address] [place] [address] Dr. Leni Hamlin Lymphocytes/100 WBC (Bld) 13.6 % Critically low 20.5-60.0 [facility] Comment on above: Performed By: #### B MP, BNP #### [facility] [address] [place] [address] Dr. Leni Hamlin MANUAL DIFF REQ NO Normal [facility] Comment on above: Performed By: #### B MP, BNP #### [facility] [address] [place] [address] Dr. Leni Hamlin MCH (RBC) [Entitic mass] 29.2 pg Normal 25.9-34.0 [facility] Comment on above: Performed By: #### B MP, BNP #### [facility] [address] [place] [address] Dr. Leni Hamlin MCHC (RBC) [Mass/Vol] 32.6 g/dL Normal 29.9-35.2 [facility] Comment on above: Performed By: #### B MP, BNP #### [facility] [address] [place] [address] Dr. Leni Hamlin MCV (RBC) [Entitic vol] 89.5 fL Normal 80.0-94.0 [facility] Comment on above: Performed By: #### B MP, BNP #### [facility] [address] [address] [address] Leni Hamlin MONO # 0.9 103/ul Critically high 0.3-0.8 [facility] Comment on above: Performed By: #### B MP, BNP #### [facility] [address] [place] [address] Dr. Leni Hamlin Monocytes/100 WBC (Bld) 6.6 % Normal 1.7-12.0 [facility] Comment on above: Performed By: #### B MP, BNP #### [facility] [address] [place] [address] Dr. Leni Hamlin NEUT # 10.4 103/ul Critically high 1.4-6.5 [facility] Comment on above: Performed By: #### B MP, BNP #### [facility] [address] [place] [address] Dr. Leni Hamlin Neutrophils/100 WBC (Bld) 75.8 % Critically high 43.0-75.0 [facility] Comment on above: Performed By: #### B MP, BNP #### [facility] [address] [place] [address] Dr. Leni Hamlin Platelet mean volume (Bld) [Entitic vol] 10.6 fL Normal 9.5-13.5 [facility] Comment on above: Performed By: #### B MP, BNP #### [facility] [address] [place] [address] Dr. Leni Hamlin PLT 143 103/ul Critically low 150-450 [facility] Comment on above: Performed By: #### B MP, BNP #### [facility] [address] [place] [address] Dr. Leni Hamlin RBC 5.24 106/ul Normal 4.70-6.10 [facility] Comment on above: Performed By: #### B MP, BNP #### [facility] [address] [place] [address] Dr. Leni Hamlin WBC 13.7 103/ul Critically high 4.0-11.0 [facility] Comment on above: Performed By: #### B MP, BNP #### [facility] [address] [address] [address] Leni Hamlin CRPon 10-03-2022 CRP 7.6 mg/dL Critically high <=1.0 [facility] Comment on above: Performed By: #### C MP, CRP #### [facility] [address] [address] [address] Leni Hamlin PROF 14(COMP METB)on 022 Albumin [Mass/Vol] 2.5 g/dL Critically low 3.4-5.0 [facility] Comment on above: Performed By: #### C MP, CRP #### [facility] [address] [address] [address] Leni Hamlin Albumin/Globulin [Mass ratio] 0.7 {ratio} Normal [facility] Comment on above: Performed By: #### C MP, CRP #### [facility] [address] [place] [address] Dr. Leni Hamlin ALP [Catalytic activity/Vol] 54 U/L Normal 46-116 [facility] Comment on above: Performed By: #### C MP, CRP #### [facility] [address] [address] [address] Leni Hamlin ALT [Catalytic activity/Vol] 11 U/L Critically low 16-63 [facility] Comment on above: Performed By: #### C MP, CRP #### [facility] [address] [place] [address] Dr. Leni Hamlin Anion gap [Moles/Vol] 8.8 mmol/L Normal [facility] Comment on above: Performed By: #### C MP, CRP #### [facility] [address] [address] [address] Leni Hamlin AST [Catalytic activity/Vol] 9 U/L Critically low 15-37 [facility] Comment on above: Performed By: #### C MP, CRP #### [facility] [address] [address] [address] Leni Hamlin Bilirubin [Mass/Vol] 0.3 mg/dL Normal 0.2-1.0 [facility] Comment on above: Performed By: #### C MP, CRP #### [facility] [address] [address] [address] Leni Hamlin Calcium [Mass/Vol] 8.6 mg/dL Normal 8.5-10.1 [facility] Comment on above: Performed By: #### C MP, CRP #### [facility] [address] [address] [address] Leni Hamlin Chloride [Moles/Vol] 103 mmol/L Normal 98-107 [facility] Comment on above: Performed By: #### C MP, CRP #### [facility] [address] [address] [address] Leni Hamlin CO2 [Moles/Vol] 29.2 mmol/L Normal 21.0-32.0 [facility] Comment on above: Performed By: #### C MP, CRP #### [facility] [address] [place] [address] Dr. Leni Hamlin Creatinine [Mass/Vol] 1.20 mg/dL Normal 0.70-1.30 [facility] Comment on above: Performed By: #### C MP, CRP #### [facility] [address] [address] [address] Leni Hamlin EGFR-AF PARAGUAYAN >60 Normal >=60 [facility] Comment on above: Performed By: #### C MP, CRP #### [facility] [address] [place] [address] Dr. Leni Hamlin EGFR-NON AF PARAGUAYAN 59 mL/min/1.73m2 Critically low >=60 [facility] Comment on above: Performed By: #### C MP, CRP #### [facility] [address] [address] [address] Leni Hamlin Globulin (S) [Mass/Vol] 3.4 g/dL Normal [facility] Comment on above: Performed By: #### C MP, CRP #### [facility] [address] [address] [address] Leni Hamlin Glucose [Mass/Vol] 108 mg/dL Critically high 74-106 [facility] Comment on above: Performed By: #### C MP, CRP #### [facility] [address] [address] [address] Leni Hamlin Potassium [Moles/Vol] 4.0 mmol/L Normal 3.5-5.1 [facility] Comment on above: Performed By: #### C MP, CRP #### [facility] [address] [address] [address] Leni Hamlin Protein [Mass/Vol] 5.9 g/dL Critically low 6.4-8.2 [facility] Comment on above: Performed By: #### C MP, CRP #### [facility] [address] [address] [address] Leni Hamlin Sodium [Moles/Vol] 137 mmol/L Normal 136-145 [facility] Comment on above: Performed By: #### C MP, CRP #### [facility] [address] [place] [address] Dr. Leni Hamlin Urea nitrogen [Mass/Vol] 15.0 mg/dL Normal 7.0-18.0 [facility] Comment on above: Performed By: #### C MP, CRP #### [facility] [address] [address] [address] Leni Hamlin Urea nitrogen/Creatinine [Mass ratio] 12.5 mg/mg Normal [facility] Comment on above: Performed By: #### C MP, CRP #### [facility] [address] [place] [address] Dr. Leni Hamlin CBC AUTO DIFFon 10-02-2022 BASO # 0.1 103/ul Normal 0.0-0.1 [facility] Comment on above: Performed By: #### C MP, CRP #### [facility] [address] [place] [address] Dr. Leni Hamlin Basophils/100 WBC (Bld) 0.5 % Normal 0.2-2.0 [facility] Comment on above: Performed By: #### C MP, CRP #### [facility] [address] [place] [address] Dr. Leni Hamlin EO # 0.2 103/ul Normal 0.0-0.7 [facility] Comment on above: Performed By: #### C MP, CRP #### [facility] [address] [place] [address] Dr. Leni Hamlin Eosinophils/100 WBC (Bld) 1.6 % Normal 0.9-7.0 [facility] Comment on above: Performed By: #### C MP, CRP #### [facility] [address] [place] [address] Dr. Leni Hamlin Erythrocyte distribution width (RBC) [Ratio] 13.4 % Normal 11.0-15.0 [facility] Comment on above: Performed By: #### C MP, CRP #### [facility] [address] [place] [address] Dr. Leni Hamlin Hematocrit (Bld) [Volume fraction] 46.6 % Normal 42.0-54.0 [facility] Comment on above: Performed By: #### C MP, CRP #### [facility] [address] [place] [address] Dr. Leni Hamlin Hemoglobin (Bld) [Mass/Vol] 15.1 g/dL Normal 14.0-18.0 [facility] Comment on above: Performed By: #### C MP, CRP #### [facility] [address] [place] [address] Dr. Leni Hamlin IG # 0.21 10e3/ul Critically high 0.00-0.03 [place] Comment on above: Performed By: #### C MP, CRP #### [facility] [address] [place] [address] Dr. Leni Hamlin IG % 1.4 % Critically high 0.0-0.5 [facility] Comment on above: Performed By: #### C MP, CRP #### [facility] [address] [place] [address] Dr. Leni Hamlin LYMPH # 1.9 103/ul Normal 1.2-3.8 [facility] Comment on above: Performed By: #### C MP, CRP #### [facility] [address] [place] [address] Dr. Leni Hamlin Lymphocytes/100 WBC (Bld) 12.4 % Critically low 20.5-60.0 [facility] Comment on above: Performed By: #### C MP, CRP #### [facility] [address] [place] [address] Dr. Leni Hamlin MANUAL DIFF REQ NO Normal [facility] Comment on above: Performed By: #### C MP, CRP #### [facility] [address] [place] [address] Dr. Leni Hamlin MCH (RBC) [Entitic mass] 28.9 pg Normal 25.9-34.0 [facility] Comment on above: Performed By: #### C MP, CRP #### [facility] [address] [place] [address] Dr. Leni Hamlin MCHC (RBC) [Mass/Vol] 32.4 g/dL Normal 29.9-35.2 [facility] Comment on above: Performed By: #### C MP, CRP #### [facility] [address] [place] [address] Dr. Leni Hamlin MCV (RBC) [Entitic vol] 89.3 fL Normal 80.0-94.0 [facility] Comment on above: Performed By: #### C MP, CRP #### [facility] [address] [place] [address] Dr. Leni Hamlin MONO # 1.1 103/ul Critically high 0.3-0.8 [facility] Comment on above: Performed By: #### C MP, CRP #### [facility] [address] [place] [address] Dr. Leni Hamlin Monocytes/100 WBC (Bld) 6.9 % Normal 1.7-12.0 [facility] Comment on above: Performed By: #### C MP, CRP #### [facility] [address] [place] [address] Dr. Leni Hamlin NEUT # 11.8 103/ul Critically high 1.4-6.5 [facility] Comment on above: Performed By: #### C MP, CRP #### [facility] [address] [place] [address] Dr. Leni Hamlin Neutrophils/100 WBC (Bld) 77.2 % Critically high 43.0-75.0 [facility] Comment on above: Performed By: #### C MP, CRP #### [facility] [address] [address] [address] Leni Hamlin Platelet mean volume (Bld) [Entitic vol] 10.5 fL Normal 9.5-13.5 [facility] Comment on above: Performed By: #### C MP, CRP #### [facility] [address] [address] [address] Leni Hamlin PLT 138 103/ul Critically low 150-450 [facility] Comment on above: Performed By: #### C MP, CRP #### [facility] [address] [place] [address] Dr. Leni Hamlin RBC 5.22 106/ul Normal 4.70-6.10 [facility] Comment on above: Performed By: #### C MP, CRP #### [facility] [address] [address] [address] Leni Hamlin WBC 15.3 103/ul Critically high 4.0-11.0 [facility] Comment on above: Performed By: #### C MP, CRP #### [facility] [address] [place] [address] Dr. Leni Hamlin CRPon 10-02-2022 CRP 13.7 mg/dL Critically high <=1.0 [facility] Comment on above: Performed By: #### C VDAGS #### [facility] [address] [place] [address] Dr. Leni Hamlin PROF 14(COMP METB)on 022 Albumin [Mass/Vol] 2.5 g/dL Critically low 3.4-5.0 [facility] Comment on above: Performed By: #### C VDAGS #### [facility] [address] [place] [address] Dr. Leni Hamlin Albumin/Globulin [Mass ratio] 0.8 {ratio} Normal [facility] Comment on above: Performed By: #### C VDAGS #### [facility] [address] [address] [address] Leni Hamlin ALP [Catalytic activity/Vol] 54 U/L Normal 46-116 [facility] Comment on above: Performed By: #### C VDAGS #### [facility] [address] [address] [address] Leni Hamlin ALT [Catalytic activity/Vol] 13 U/L Critically low 16-63 [facility] Comment on above: Performed By: #### C VDAGS #### [facility] [address] [address] [address] Leni Hamlin Anion gap [Moles/Vol] 10.6 mmol/L Normal [facility] Comment on above: Performed By: #### C VDAGS #### [facility] [address] [address] [address] Leni Hamlin AST [Catalytic activity/Vol] 9 U/L Critically low 15-37 [facility] Comment on above: Performed By: #### C VDAGS #### [facility] [address] [address] [address] Leni Hamlin Bilirubin [Mass/Vol] 0.3 mg/dL Normal 0.2-1.0 [facility] Comment on above: Performed By: #### C VDAGS #### [facility] [address] [address] [address] Leni Hamlin Calcium [Mass/Vol] 8.5 mg/dL Normal 8.5-10.1 [facility] Comment on above: Performed By: #### C VDAGS #### [facility] [address] [address] [address] Leni Hamlin Chloride [Moles/Vol] 104 mmol/L Normal 98-107 [facility] Comment on above: Performed By: #### C VDAGS #### [facility] [address] [address] [address] Leni Hamlin CO2 [Moles/Vol] 27.5 mmol/L Normal 21.0-32.0 [facility] Comment on above: Performed By: #### C VDAGS #### [facility] [address] [address] [address] Leni Hamlin Creatinine [Mass/Vol] 1.26 mg/dL Normal 0.70-1.30 [facility] Comment on above: Performed By: #### C VDAGS #### [facility] [address] [address] [address] Leni Hamlin EGFR-AF PARAGUAYAN >60 Normal >=60 [facility] Comment on above: Performed By: #### C VDAGS #### [facility] [address] [address] [address] Leni Hamlin EGFR-NON AF PARAGUAYAN 56 mL/min/1.73m2 Critically low >=60 [facility] Comment on above: Performed By: #### C VDAGS #### [facility] [address] [address] [address] Leni Hamlin Globulin (S) [Mass/Vol] 3.3 g/dL Normal [facility] Comment on above: Performed By: #### C VDAGS #### [facility] [address] [address] [address] Leni Hamlin Glucose [Mass/Vol] 122 mg/dL Critically high 74-106 [facility] Comment on above: Performed By: #### C VDAGS #### [facility] [address] [address] [address] Leni Hamlin Potassium [Moles/Vol] 4.1 mmol/L Normal 3.5-5.1 [facility] Comment on above: Performed By: #### C VDAGS #### [facility] [address] [address] [address] Leni Hamlin Protein [Mass/Vol] 5.8 g/dL Critically low 6.4-8.2 [facility] Comment on above: Performed By: #### C VDAGS #### [facility] [address] [address] [address] Leni Hamlin Sodium [Moles/Vol] 138 mmol/L Normal 136-145 [facility] Comment on above: Performed By: #### C VDAGS #### [facility] [address] [place] [address] Dr. Leni Hamlin Urea nitrogen [Mass/Vol] 20.0 mg/dL Critically high 7.0-18.0 [facility] Comment on above: Performed By: #### C VDAGS #### [facility] [address] [place] [address] Dr. Leni Hamlin Urea nitrogen/Creatinine [Mass ratio] 15.9 mg/mg Normal [facility] Comment on above: Performed By: #### C VDAGS #### [facility] [address] [place] [address] Dr. Leni Hamlin CBC AUTO DIFFon 10-01-2022 BASO # 0.1 103/ul Normal 0.0-0.1 [facility] Comment on above: Performed By: #### B MP, BNP #### [facility] [address] [place] [address] Dr. Leni Hamlin BASO # 0.1 103/ul Normal 0.0-0.1 [facility] Comment on above: Performed By: #### C MP, CRP #### [facility] [address] [place] [address] Dr. Leni Hamlin Basophils/100 WBC (Bld) 0.3 % Normal 0.2-2.0 [facility] Comment on above: Performed By: #### B MP, BNP #### [facility] [address] [place] [address] Dr. Leni Hamlin Basophils/100 WBC (Bld) 0.3 % Normal 0.2-2.0 [facility] Comment on above: Performed By: #### C MP, CRP #### [facility] [address] [place] [address] Dr. Leni Hamlin EO # 0.1 103/ul Normal 0.0-0.7 [facility] Comment on above: Performed By: #### B MP, BNP #### [facility] [address] [place] [address] Dr. Leni Hamlin EO # 0.2 103/ul Normal 0.0-0.7 [facility] Comment on above: Performed By: #### C MP, CRP #### [facility] [address] [place] [address] Dr. Leni Hamlin Eosinophils/100 WBC (Bld) 0.7 % Critically low 0.9-7.0 [facility] Comment on above: Performed By: #### B MP, BNP #### [facility] [address] [place] [address] Dr. Leni Hamlin Eosinophils/100 WBC (Bld) 0.8 % Critically low 0.9-7.0 [facility] Comment on above: Performed By: #### C MP, CRP #### [facility] [address] [place] [address] Dr. Leni Hamlin Erythrocyte distribution width (RBC) [Ratio] 13.6 % Normal 11.0-15.0 [facility] Comment on above: Performed By: #### B MP, BNP #### [facility] [address] [place] [address] Dr. Leni Hamlin Erythrocyte distribution width (RBC) [Ratio] 13.6 % Normal 11.0-15.0 [facility] Comment on above: Performed By: #### C MP, CRP #### [facility] [address] [place] [address] Dr. Leni Hamlin Hematocrit (Bld) [Volume fraction] 46.9 % Normal 42.0-54.0 [facility] Comment on above: Performed By: #### B MP, BNP #### [facility] [address] [place] [address] Dr. Leni Hamlin Hematocrit (Bld) [Volume fraction] 49.0 % Normal 42.0-54.0 [facility] Comment on above: Performed By: #### C MP, CRP #### [facility] [address] [place] [address] Dr. Leni Hamlin Hemoglobin (Bld) [Mass/Vol] 15.5 g/dL Normal 14.0-18.0 [facility] Comment on above: Performed By: #### B MP, BNP #### [facility] [address] [place] [address] Dr. Leni Hamlin Hemoglobin (Bld) [Mass/Vol] 16.0 g/dL Normal 14.0-18.0 [facility] Comment on above: Performed By: #### C MP, CRP #### [facility] [address] [address] [address] Leni Hamlin IG # 0.16 10e3/ul Critically high 0.00-0.03 [place] Comment on above: Performed By: #### B MP, BNP #### [facility] [address] [address] [address] Leni Hamlin IG # 0.24 10e3/ul Critically high 0.00-0.03 [facility] Comment on above: Performed By: #### C MP, CRP #### [facility] [address] [place] [address] Dr. Leni Hamlin IG % 0.9 % Critically high 0.0-0.5 [facility] Comment on above: Performed By: #### B MP, BNP #### [facility] [address] [place] [address] Dr. Leni Hamlin IG % 1.2 % Critically high 0.0-0.5 [facility] Comment on above: Performed By: #### C MP, CRP #### [facility] [address] [place] [address] Dr. Leni Hamlin LYMPH # 1.8 103/ul Normal 1.2-3.8 [facility] Comment on above: Performed By: #### B MP, BNP #### [facility] [address] [address] [address] Leni Hamlin LYMPH # 1.6 103/ul Normal 1.2-3.8 [facility] Comment on above: Performed By: #### C MP, CRP #### [facility] [address] [place] [address] Dr. Leni Hamlin Lymphocytes/100 WBC (Bld) 9.7 % Critically low 20.5-60.0 [facility] Comment on above: Performed By: #### B MP, BNP #### [facility] [address] [place] [address] Dr. Leni Hamlin Lymphocytes/100 WBC (Bld) 8.0 % Critically low 20.5-60.0 [facility] Comment on above: Performed By: #### C MP, CRP #### [facility] [address] [place] [address] Dr. Leni Hamlin MANUAL DIFF REQ NO Normal [facility] Comment on above: Performed By: #### B MP, BNP #### [facility] [address] [place] [address] Dr. Leni Hamlin MANUAL DIFF REQ NO Normal [facility] Comment on above: Performed By: #### C MP, CRP #### [facility] [address] [place] [address] Dr. Leni Hamiln MCH (RBC) [Entitic mass] 29.2 pg Normal 25.9-34.0 [facility] Comment on above: Performed By: #### B MP, BNP #### [facility] [address] [place] [address] Dr. Leni Hamlin MCH (RBC) [Entitic mass] 29.4 pg Normal 25.9-34.0 [facility] Comment on above: Performed By: #### C MP, CRP #### [facility] [address] [place] [address] Dr. Leni Hamlin MCHC (RBC) [Mass/Vol] 33.0 g/dL Normal 29.9-35.2 [facility] Comment on above: Performed By: #### B MP, BNP #### [facility] [address] [place] [address] Dr. Leni Hamlin MCHC (RBC) [Mass/Vol] 32.7 g/dL Normal 29.9-35.2 [facility] Comment on above: Performed By: #### C MP, CRP #### [facility] [address] [place] [address] Dr. Leni Hamlin MCV (RBC) [Entitic vol] 88.3 fL Normal 80.0-94.0 [facility] Comment on above: Performed By: #### B MP, BNP #### [facility] [address] [address] [address] Leni Hamlin MCV (RBC) [Entitic vol] 90.1 fL Normal 80.0-94.0 [facility] Comment on above: Performed By: #### C MP, CRP #### [facility] [address] [place] [address] Dr. Leni Hamlin MONO # 1.4 103/ul Critically high 0.3-0.8 [facility] Comment on above: Performed By: #### B MP, BNP #### [facility] [address] [place] [address] Dr. Leni Hamlin MONO # 1.0 103/ul Critically high 0.3-0.8 [facility] Comment on above: Performed By: #### C MP, CRP #### [facility] [address] [place] [address] Dr. Leni Hamlin Monocytes/100 WBC (Bld) 7.3 % Normal 1.7-12.0 [facility] Comment on above: Performed By: #### B MP, BNP #### [facility] [address] [place] [address] Dr. Leni Hamlin Monocytes/100 WBC (Bld) 5.1 % Normal 1.7-12.0 [facility] Comment on above: Performed By: #### C MP, CRP #### [facility] [address] [place] [address] Dr. Leni Hamlin NEUT # 15.1 103/ul Critically high 1.4-6.5 [facility] Comment on above: Performed By: #### B MP, BNP #### [facility] [address] [place] [address] Dr. Leni Hamlin NEUT # 16.8 103/ul Critically high 1.4-6.5 [facility] Comment on above: Performed By: #### C MP, CRP #### [facility] [address] [place] [address] Dr. Leni Hamlin Neutrophils/100 WBC (Bld) 81.1 % Critically high 43.0-75.0 [facility] Comment on above: Performed By: #### B MP, BNP #### [facility] [address] [address] [address] Leni Hamlin Neutrophils/100 WBC (Bld) 84.6 % Critically high 43.0-75.0 [facility] Comment on above: Performed By: #### C MP, CRP #### [facility] [address] [address] [address] Leni Hamlin Platelet mean volume (Bld) [Entitic vol] 10.0 fL Normal 9.5-13.5 [facility] Comment on above: Performed By: #### B MP, BNP #### [facility] [address] [place] [address] Dr. Leni Hamlin Platelet mean volume (Bld) [Entitic vol] 9.7 fL Normal 9.5-13.5 [facility] Comment on above: Performed By: #### C MP, CRP #### [facility] [address] [place] [address] Dr. Leni Hamlin PLT 141 103/ul Critically low 150-450 [facility] Comment on above: Performed By: #### B MP, BNP #### [facility] [address] [place] [address] Dr. Leni Hamlin PLT 138 103/ul Critically low 150-450 [facility] Comment on above: Performed By: #### C MP, CRP #### [facility] [address] [place] [address] Dr. Leni Hamlin RBC 5.31 106/ul Normal 4.70-6.10 [facility] Comment on above: Performed By: #### B MP, BNP #### [facility] [address] [place] [address] Dr. Leni Hamlin RBC 5.44 106/ul Normal 4.70-6.10 [facility] Comment on above: Performed By: #### C MP, CRP #### [facility] [address] [place] [address] Dr. Leni Hamlin WBC 18.7 103/ul Critically high 4.0-11.0 [facility] Comment on above: Performed By: #### B MP, BNP #### [facility] [address] [address] [address] Leni Hamlin WBC 19.8 103/ul Critically high 4.0-11.0 [facility] Comment on above: Performed By: #### C MP, CRP #### [facility] [address] [address] [address] Leni Hamlin CRPon 10-01-2022 CRP 16.0 mg/dL Critically high <=1.0 [facility] Comment on above: Performed By: #### C VDAGS #### [facility] [address] [address] [address] Leni Hamlin PROF 14(COMP METB)on 022 Albumin [Mass/Vol] 2.6 g/dL Critically low 3.4-5.0 [facility] Comment on above: Performed By: #### C MP, CRP #### [facility] [address] [place] [address] Dr. Leni Hamlin Albumin/Globulin [Mass ratio] 0.8 {ratio} Normal [facility] Comment on above: Performed By: #### C MP, CRP #### [facility] [address] [address] [address] Leni Hamlin ALP [Catalytic activity/Vol] 44 U/L Critically low 46-116 [facility] Comment on above: Performed By: #### C MP, CRP #### [facility] [address] [address] [address] Leni Hamlin ALT [Catalytic activity/Vol] 12 U/L Critically low 16-63 [facility] Comment on above: Performed By: #### C MP, CRP #### [facility] [address] [address] [address] Leni Hamlin Anion gap [Moles/Vol] 8.7 mmol/L Normal [facility] Comment on above: Performed By: #### C MP, CRP #### [facility] [address] [address] [address] Leni Hamlin AST [Catalytic activity/Vol] 10 U/L Critically low 15-37 [facility] Comment on above: Performed By: #### C MP, CRP #### [facility] [address] [address] [address] Leni Hamlin Bilirubin [Mass/Vol] 0.8 mg/dL Normal 0.2-1.0 [facility] Comment on above: Performed By: #### C MP, CRP #### [facility] [address] [address] [address] Leni Hamlin Calcium [Mass/Vol] 8.3 mg/dL Critically low 8.5-10.1 [facility] Comment on above: Performed By: #### C MP, CRP #### [facility] [address] [place] [address] Dr. Leni Hamlin Chloride [Moles/Vol] 103 mmol/L Normal 98-107 [facility] Comment on above: Performed By: #### C MP, CRP #### [facility] [address] [place] [address] Dr. Leni Hamlin CO2 [Moles/Vol] 28.2 mmol/L Normal 21.0-32.0 [facility] Comment on above: Performed By: #### C MP, CRP #### [facility] [address] [place] [address] Dr. Leni Hamlin Creatinine [Mass/Vol] 1.24 mg/dL Normal 0.70-1.30 [facility] Comment on above: Performed By: #### C MP, CRP #### [facility] [address] [place] [address] Dr. Leni Hamlin EGFR-AF PARAGUAYAN >60 Normal >=60 [facility] Comment on above: Performed By: #### C MP, CRP #### [facility] [address] [place] [address] Dr. Lnei Hamlin EGFR-NON AF PARAGUAYAN 57 mL/min/1.73m2 Critically low >=60 [facility] Comment on above: Performed By: #### C MP, CRP #### [facility] [address] [place] [address] Dr. Leni Hamlin Globulin (S) [Mass/Vol] 3.2 g/dL Normal [facility] Comment on above: Performed By: #### C MP, CRP #### [facility] [address] [address] [address] Leni Hamlin Glucose [Mass/Vol] 111 mg/dL Critically high 74-106 [facility] Comment on above: Performed By: #### C MP, CRP #### [facility] [address] [address] [address] Leni Hamlin Potassium [Moles/Vol] 3.9 mmol/L Normal 3.5-5.1 [facility] Comment on above: Performed By: #### C MP, CRP #### [facility] [address] [address] [address] Leni Hamlin Protein [Mass/Vol] 5.8 g/dL Critically low 6.4-8.2 [facility] Comment on above: Performed By: #### C MP, CRP #### [facility] [address] [address] [address] Leni Hamlin Sodium [Moles/Vol] 136 mmol/L Normal 136-145 [facility] Comment on above: Performed By: #### C MP, CRP #### [facility] [address] [address] [address] Leni Hamlin Urea nitrogen [Mass/Vol] 17.0 mg/dL Normal 7.0-18.0 [facility] Comment on above: Performed By: #### C MP, CRP #### [facility] [address] [address] [address] Leni Hamlin Urea nitrogen/Creatinine [Mass ratio] 13.7 mg/mg Normal [facility] Comment on above: Performed By: #### C MP, CRP #### [facility] [address] [address] [address] Leni Hamlin C. DIFF PCRon 09-30-2022 C. DIFFICILE PCR Positive Critically abnormal NEGATIVE [facility] Comment on above: Performed By: #### C VDAGS #### [facility] [address] [place] [address] Dr. Leni Hamlin CBC AUTO DIFFon 09-30-2022 BASO # 0.0 103/ul Normal 0.0-0.1 [facility] Comment on above: Performed By: #### C BC #### [facility] [address] [place] [address] Dr. Leni Hamlin Basophils/100 WBC (Bld) 0.3 % Normal 0.2-2.0 [facility] Comment on above: Performed By: #### C BC #### [facility] [address] [place] [address] Dr. Leni Hamlin EO # 0.1 103/ul Normal 0.0-0.7 [facility] Comment on above: Performed By: #### C BC #### [facility] [address] [place] [address] Dr. Leni Hamlin Eosinophils/100 WBC (Bld) 0.8 % Critically low 0.9-7.0 [facility] Comment on above: Performed By: #### C BC #### [facility] [address] [place] [address] Dr. Leni Hamlin Erythrocyte distribution width (RBC) [Ratio] 13.4 % Normal 11.0-15.0 [facility] Comment on above: Performed By: #### C BC #### [facility] [address] [place] [address] Dr. Leni Hamlin Hematocrit (Bld) [Volume fraction] 50.4 % Normal 42.0-54.0 [facility] Comment on above: Performed By: #### C BC #### [facility] [address] [place] [address] Dr. Leni Hamlin Hemoglobin (Bld) [Mass/Vol] 16.2 g/dL Normal 14.0-18.0 [facility] Comment on above: Performed By: #### C BC #### [facility] [address] [place] [address] Dr. Leni Hamlin IG # 0.13 10e3/ul Critically high 0.00-0.03 [place] Comment on above: Performed By: #### C BC #### [facility] [address] [place] [address] Dr. Leni Hamlin IG % 0.9 % Critically high 0.0-0.5 [facility] Comment on above: Performed By: #### C BC #### [facility] [address] [place] [address] Dr. Leni Hamlin LYMPH # 1.7 103/ul Normal 1.2-3.8 [facility] Comment on above: Performed By: #### C BC #### [facility] [address] [place] [address] Dr. Leni Hamlin Lymphocytes/100 WBC (Bld) 11.1 % Critically low 20.5-60.0 [facility] Comment on above: Performed By: #### C BC #### [facility] [address] [place] [address] Dr. Leni Hamlin MANUAL DIFF REQ NO Normal [facility] Comment on above: Performed By: #### C BC #### [facility] [address] [place] [address] Dr. Leni Hamlin MCH (RBC) [Entitic mass] 28.8 pg Normal 25.9-34.0 [facility] Comment on above: Performed By: #### C BC #### [facility] [address] [place] [address] Dr. Leni Hamlin MCHC (RBC) [Mass/Vol] 32.1 g/dL Normal 29.9-35.2 [facility] Comment on above: Performed By: #### C BC #### [facility] [address] [place] [address] Dr. Leni Hamlin MCV (RBC) [Entitic vol] 89.7 fL Normal 80.0-94.0 [facility] Comment on above: Performed By: #### C BC #### [facility] [address] [place] [address] Dr. Leni Hamlin MONO # 1.5 103/ul Critically high 0.3-0.8 [facility] Comment on above: Performed By: #### C BC #### [facility] [address] [place] [address] Dr. Leni Hamlin Monocytes/100 WBC (Bld) 9.8 % Normal 1.7-12.0 [facility] Comment on above: Performed By: #### C BC #### [facility] [address] [address] [address] Leni Hamlin NEUT # 11.7 103/ul Critically high 1.4-6.5 [facility] Comment on above: Performed By: #### C BC #### [facility] [address] [address] [address] Leni Hamlin Neutrophils/100 WBC (Bld) 77.1 % Critically high 43.0-75.0 [facility] Comment on above: Performed By: #### C BC #### [facility] [address] [address] [address] Leni Hamlin Platelet mean volume (Bld) [Entitic vol] 9.9 fL Normal 9.5-13.5 [facility] Comment on above: Performed By: #### C BC #### [facility] [address] [address] [address] Leni Hamlin PLT 156 103/ul Normal 150-450 [facility] Comment on above: Performed By: #### C BC #### [facility] [address] [address] [address] Leni Hamlin RBC 5.62 106/ul Normal 4.70-6.10 [facility] Comment on above: Performed By: #### C BC #### [facility] [address] [address] [address] Leni Hamlin WBC 15.2 103/ul Critically high 4.0-11.0 [facility] Comment on above: Performed By: #### C BC #### [facility] [address] [address] [address] Leni Hamlin CRPon 09-30-2022 CRP 7.6 mg/dL Critically high <=1.0 [facility] Comment on above: Performed By: #### C RP #### [facility] [address] [address] [address] Leni Hamlin PROF 14(COMP METB)on 022 Albumin [Mass/Vol] 2.8 g/dL Critically low 3.4-5.0 [facility] Comment on above: Performed By: #### C RP #### [facility] [address] [address] [address] Leni Hamlin Albumin/Globulin [Mass ratio] 0.9 {ratio} Normal [facility] Comment on above: Performed By: #### C RP #### [facility] [address] [address] [address] Leni Hamlin ALP [Catalytic activity/Vol] 45 U/L Critically low 46-116 [facility] Comment on above: Performed By: #### C RP #### [facility] [address] [place] [address] Dr. Leni Hamlin ALT [Catalytic activity/Vol] 17 U/L Normal 16-63 [facility] Comment on above: Performed By: #### C RP #### [facility] [address] [place] [address] Dr. Leni Hamlin Anion gap [Moles/Vol] 8.4 mmol/L Normal [facility] Comment on above: Performed By: #### C RP #### [facility] [address] [place] [address] Dr. Leni Hamlin AST [Catalytic activity/Vol] 9 U/L Critically low 15-37 [facility] Comment on above: Performed By: #### C RP #### [facility] [address] [place] [address] Dr. Leni Hamlin Bilirubin [Mass/Vol] 0.6 mg/dL Normal 0.2-1.0 [facility] Comment on above: Performed By: #### C RP #### [facility] [address] [place] [address] Dr. Leni Hamlin Calcium [Mass/Vol] 8.6 mg/dL Normal 8.5-10.1 [facility] Comment on above: Performed By: #### C RP #### [facility] [address] [place] [address] Dr. Leni Hamlin Chloride [Moles/Vol] 104 mmol/L Normal 98-107 [facility] Comment on above: Performed By: #### C RP #### [facility] [address] [address] [address] Leni Hamlin CO2 [Moles/Vol] 29.6 mmol/L Normal 21.0-32.0 [facility] Comment on above: Performed By: #### C RP #### [facility] [address] [address] [address] Leni Hamlin Creatinine [Mass/Vol] 1.23 mg/dL Normal 0.70-1.30 [facility] Comment on above: Performed By: #### C RP #### [facility] [address] [address] [address] Leni Hamlin EGFR-AF PARAGUAYAN >60 Normal >=60 [facility] Comment on above: Performed By: #### C RP #### [facility] [address] [place] [address] Dr. Leni Hamlin EGFR-NON AF PARAGUAYAN 58 mL/min/1.73m2 Critically low >=60 [facility] Comment on above: Performed By: #### C RP #### [facility] [address] [place] [address] Dr. Leni Hamlin Globulin (S) [Mass/Vol] 3.0 g/dL Normal [facility] Comment on above: Performed By: #### C RP #### [facility] [address] [place] [address] Dr. Leni Hamlin Glucose [Mass/Vol] 113 mg/dL Critically high 74-106 [facility] Comment on above: Performed By: #### C RP #### [facility] [address] [place] [address] Dr. Leni Hamlin Potassium [Moles/Vol] 4.0 mmol/L Normal 3.5-5.1 [facility] Comment on above: Performed By: #### C RP #### [facility] [address] [place] [address] Dr. Leni Hamlin Protein [Mass/Vol] 5.8 g/dL Critically low 6.4-8.2 [facility] Comment on above: Performed By: #### C RP #### [facility] [address] [place] [address] Dr. Leni Hamlin Sodium [Moles/Vol] 138 mmol/L Normal 136-145 [facility] Comment on above: Performed By: #### C RP #### [facility] [address] [place] [address] Dr. Leni Hamlin Urea nitrogen [Mass/Vol] 17.0 mg/dL Normal 7.0-18.0 [facility] Comment on above: Performed By: #### C RP #### [facility] [address] [place] [address] Dr. Leni Hamlin Urea nitrogen/Creatinine [Mass ratio] 13.8 mg/mg Normal [facility] Comment on above: Performed By: #### C RP #### [facility] [address] [place] [address] Dr. Leni Hamlin CBC AUTO DIFFon 09-29-2022 BASO # 0.1 103/ul Normal 0.0-0.1 [facility] Comment on above: Performed By: #### C VDAGS #### [facility] [address] [place] [address] Dr. Leni Hamlin Basophils/100 WBC (Bld) 0.4 % Normal 0.2-2.0 [facility] Comment on above: Performed By: #### C VDAGS #### [facility] [address] [place] [address] Dr. Leni Hamlin EO # 0.1 103/ul Normal 0.0-0.7 [facility] Comment on above: Performed By: #### C VDAGS #### [facility] [address] [place] [address] Dr. Leni Hamlin Eosinophils/100 WBC (Bld) 0.9 % Normal 0.9-7.0 [facility] Comment on above: Performed By: #### C VDAGS #### [facility] [address] [place] [address] Dr. Leni Hamlin Erythrocyte distribution width (RBC) [Ratio] 13.2 % Normal 11.0-15.0 [facility] Comment on above: Performed By: #### C VDAGS #### [facility] [address] [place] [address] Dr. Leni Hamlin Hematocrit (Bld) [Volume fraction] 53.1 % Normal 42.0-54.0 [facility] Comment on above: Performed By: #### C VDAGS #### [facility] [address] [place] [address] Dr. Leni Hamlni Hemoglobin (Bld) [Mass/Vol] 17.3 g/dL Normal 14.0-18.0 [facility] Comment on above: Performed By: #### C VDAGS #### [facility] [address] [place] [address] Dr. Leni Hamlin IG # 0.30 10e3/ul Critically high 0.00-0.03 [place] Comment on above: Performed By: #### C VDAGS #### [facility] [address] [place] [address] Dr. Leni Hamlin IG % 2.2 % Critically high 0.0-0.5 [facility] Comment on above: Performed By: #### C VDAGS #### [facility] [address] [place] [address] Dr. Leni Hamlin LYMPH # 1.5 103/ul Normal 1.2-3.8 [facility] Comment on above: Performed By: #### C VDAGS #### [facility] [address] [place] [address] Dr. Leni Hamlin Lymphocytes/100 WBC (Bld) 10.5 % Critically low 20.5-60.0 [facility] Comment on above: Performed By: #### C VDAGS #### [facility] [address] [place] [address] Dr. Leni Hamlin MANUAL DIFF REQ NO Normal [facility] Comment on above: Performed By: #### C VDAGS #### [facility] [address] [place] [address] Dr. Leni Hamlin MCH (RBC) [Entitic mass] 29.0 pg Normal 25.9-34.0 [facility] Comment on above: Performed By: #### C VDAGS #### [facility] [address] [address] [address] Leni Hamlin MCHC (RBC) [Mass/Vol] 32.6 g/dL Normal 29.9-35.2 [facility] Comment on above: Performed By: #### C VDAGS #### [facility] [address] [place] [address] Dr. Leni Hamlin MCV (RBC) [Entitic vol] 88.9 fL Normal 80.0-94.0 [facility] Comment on above: Performed By: #### C VDAGS #### [facility] [address] [place] [address] Dr. Leni Hamlin MONO # 0.8 103/ul Normal 0.3-0.8 [facility] Comment on above: Performed By: #### C VDAGS #### [facility] [address] [place] [address] Dr. Leni Hamlin Monocytes/100 WBC (Bld) 6.0 % Normal 1.7-12.0 [facility] Comment on above: Performed By: #### C VDAGS #### [facility] [address] [place] [address] Dr. Leni Hamlin NEUT # 11.2 103/ul Critically high 1.4-6.5 [facility] Comment on above: Performed By: #### C VDAGS #### [facility] [address] [place] [address] Dr. Leni Hamlin Neutrophils/100 WBC (Bld) 80.0 % Critically high 43.0-75.0 [facility] Comment on above: Performed By: #### C VDAGS #### [facility] [address] [place] [address] Dr. Leni Hamlin Platelet mean volume (Bld) [Entitic vol] 9.6 fL Normal 9.5-13.5 [facility] Comment on above: Performed By: #### C VDAGS #### [facility] [address] [place] [address] Dr. Leni Hamlin PLT 186 103/ul Normal 150-450 [facility] Comment on above: Performed By: #### C VDAGS #### [facility] [address] [place], [place] [address] Dr. Leni Hamlin RBC 5.97 106/ul Normal 4.70-6.10 [facility] Comment on above: Performed By: #### C VDAGS #### [facility] [address] [place], [place] [address] Dr. Leni Hamlin WBC 13.9 103/ul Critically high 4.0-11.0 [facility] Comment on above: Performed By: #### C VDAGS #### [facility] [address] [place], [place] [address] ABD/PELV W CONon [...] CHACON Date: 2022-09-29 12:51 Normal [facility]on [facility]11 SARS-CoV-2 (COVID-19) RNA VENESSA+probe Ql [...] for this test is supported by the [place] of Health and Human Service's declaration that [...] By: #### B MP, BNP #### [facility] [address] [place] [address] Dr. Leni Hamlin GI PANEL (PCR)on 09-29-2022 Adenovirus F 40/41 Not detected Normal NOT DETECTED [facility] Comment on above: Performed By: #### C RP #### [facility] [address] [place] [address] Dr. Leni Hamlin Astrovirus Not detected Normal NOT DETECTED [facility] Comment on above: Performed By: #### C RP #### [facility] [address] [place] [address] Dr. Leni Duvall. Diff toxin A/B Not detected Normal NOT DETECTED [facility] Comment on above: Performed By: #### C RP #### [facility] [address] [place] [address] Dr. Leni Hamlin Campylobacter Not detected Normal NOT DETECTED [facility] Comment on above: Performed By: #### C RP #### [facility] [address] [place] [address] Dr. Leni Hamlin Cryptosporidium Not detected Normal NOT DETECTED [facility] Comment on above: Performed By: #### C RP #### [facility] [address] [place] [address] Dr. Leni Hamlin Cyclos. Cayetanensis Not detected Normal NOT DETECTED [facility] Comment on above: Performed By: #### C RP #### [facility] [address] [place] [address] Dr. Leni Hamlin E. Coli O157 Not Applicable Normal Not Applicable [facility] Comment on above: Performed By: #### C RP #### [facility] [address] [place] [address] Dr. Leni Hamlin E. histolytica Not detected Normal NOT DETECTED [facility] Comment on above: Performed By: #### C RP #### [facility] [address] [place] [address] Dr. Leni Hamlin EAEC Not detected Normal NOT DETECTED [facility] Comment on above: Performed By: #### C RP #### [facility] [address] [place] [address] Dr. Leni Hamlin EIEC Not detected Normal NOT DETECTED [facility] Comment on above: Performed By: #### C RP #### [facility] [address] [place] [address] Dr. Leni Hamlin EPEC Not detected Normal NOT DETECTED [facility] Comment on above: Performed By: #### C RP #### [facility] [address] [place] [address] Dr. Leni Hamlin ETEC Not detected Normal NOT DETECTED [facility] Comment on above: Performed By: #### C RP #### [facility] [address] [place] [address] Dr. Leni Hamlin G. Lamblia Not detected Normal NOT DETECTED [facility] Comment on above: Performed By: #### C RP #### [facility] [address] [place] [address] Dr. Leni ESQUIVELL CONTROLS PASSED Normal [facility] Comment on above: Performed By: #### C RP #### [facility] [address] [place] [address] Dr. Leni FRIEND RAGHU HEADER GI PANEL BACTERIA Normal [facility] Comment on above: Performed By: #### C RP #### [facility] [address] [place] [address] Dr. Leni FRIENDHD ECOLI GI PANEL DIARRHEAGENIC E.COLI / SHIGELLA Normal [facility] Comment on above: Performed By: #### C RP #### [facility] [address] [address] [address] Leni KAMARA INFO SEE BELOW Normal [facility] Comment on above: Result Comment: EAEC - Enteroaggregative E. Coli EPEC- Enteropathogenic E. Coli ETEC- Enterotoxigenic E. Coli lt/st STEC- Shigella-like toxin-producing E. Coli stx1/stx2 EIEC- Shigella/Enteroinvasive E. Coli Performed By: #### C RP #### [facility] [address] [address] [address] Lnei KAMARA PARASITES GI PANEL PARASITES Normal [facility] Comment on above: Performed By: #### C RP #### [facility] [address] [place] [address] Dr. Leni KAMARA VIRUS GI PANEL VIRUSES Normal [facility] Comment on above: Performed By: #### C RP #### [facility] [address] [address] [address] Leni Hamlin Norovirus GI/GII Not detected Normal NOT DETECTED [facility] Comment on above: Performed By: #### C RP #### [facility] [address] [place] [address] Dr. Leni Hamlin P. Shigelloides Not detected Normal NOT DETECTED [facility] Comment on above: Performed By: #### C RP #### [facility] [address] [place] [address] Dr. Leni Hamlin Rotavirus A Not detected Normal NOT DETECTED [facility] Comment on above: Performed By: #### C RP #### [facility] [address] [place] [address] Dr. Leni Hamlin Salmonella Not detected Normal NOT DETECTED [facility] Comment on above: Performed By: #### C RP #### [facility] [address] [place] [address] Dr. Leni Hamlin Sapovirus Not detected Normal NOT DETECTED [facility] Comment on above: Performed By: #### C RP #### [facility] [address] [place] [address] Dr. Leni Hamlin STEC Not detected Normal NOT DETECTED [facility] Comment on above: Performed By: #### C RP #### [facility] [address] [place] [address] Dr. Leni Hamlin Vibrio Not detected Normal NOT DETECTED [facility] Comment on above: Performed By: #### C RP #### [facility] [address] [place] [address] Dr. Leni Hamlin Vibrio Cholera Not detected Normal NOT DETECTED [facility] Comment on above: Performed By: #### C RP #### [facility] [address] [place] [address] Dr. Leni Hamlin Y. Enterocolitica Not detected Normal NOT DETECTED [facility] Comment on above: Performed By: #### C RP #### [facility] [address] [place] [address] Dr. Leni Hamlin PROF CHEM 8 (BAS METB)on Anion gap [Moles/Vol] 5.8 mmol/L Normal [facility] Comment on above: Performed By: #### C VDAGS #### [facility] [address] [place] [address] Dr. Leni Hamlin Calcium [Mass/Vol] 9.0 mg/dL Normal 8.5-10.1 [facility] Comment on above: Performed By: #### C VDAGS #### [facility] [address] [place] [address] Dr. Leni Hamlin Chloride [Moles/Vol] 103 mmol/L Normal 98-107 [facility] Comment on above: Performed By: #### C VDAGS #### [facility] [address] [place] [address] Dr. Lein Hamlin CO2 [Moles/Vol] 31.7 mmol/L Normal 21.0-32.0 [facility] Comment on above: Performed By: #### C VDAGS #### [facility] [address] [place] [address] Dr. Leni Hamlin Creatinine [Mass/Vol] 1.28 mg/dL Normal 0.70-1.30 [facility] Comment on above: Performed By: #### C VDAGS #### [facility] [address] [address] [address] Leni Hamlin EGFR-AF PARAGUAYAN >60 Normal >=60 [facility] Comment on above: Performed By: #### C VDAGS #### [facility] [address] [address] [address] Leni Hamlin EGFR-NON AF PARAGUAYAN 55 mL/min/1.73m2 Critically low >=60 [facility] Comment on above: Performed By: #### C VDAGS #### [facility] [address] [address] [address] Leni Hamlin Glucose [Mass/Vol] 130 mg/dL Critically high 74-106 [facility] Comment on above: Performed By: #### C VDAGS #### [facility] [address] [address] [address] Leni Hamlin Potassium [Moles/Vol] 4.5 mmol/L Normal 3.5-5.1 [facility] Comment on above: Performed By: #### C VDAGS #### [facility] [address] [address] [address] Leni Hamlin Sodium [Moles/Vol] 136 mmol/L Normal 136-145 [facility] Comment on above: Performed By: #### C VDAGS #### [facility] [address] [address] [address] Leni Hamlin Urea nitrogen [Mass/Vol] 23.0 mg/dL Critically high 7.0-18.0 [facility] Comment on above: Performed By: #### C VDAGS #### [facility] [address] [address] [address] Leni Hamlin Urea nitrogen/Creatinine [Mass ratio] 18.0 mg/mg Normal [facility] Comment on above: Performed By: #### C VDAGS #### [facility] [address] [address] [address] Leni Hamlin Covid-19 PCR ([facility])on 08-13 SARS-CoV-2 (COVID-19) RNA VENESSA+probe Ql [...] for this test is supported by the [place] Judge of Health and Human Service's declaration that [...] By: #### C MP, CRP #### [facility] [address] [place] [address] Dr. Leni Hamlin Covid-19 PCR ([facility])on 05-11 SARS-CoV-2 (COVID-19) RNA VENESSA+probe Ql (Unsp spec) Detected Critically abnormal NOT DETECTED [facility] Comment on above: Result Comment: This test is not yet approved or cleared by the [place] FDA. When there are no FDA-approved or cleared tests available, and other criteria are met, FDA can make tests available under an emergency access mechanism called an Emergency Use Authorization (EUA). The EUA for this test is supported by the [place] of Health and Human Service's (HHS's) declaration [...] Performed By: #### C RP #### [facility] [address] [place] [address] Dr. Leni Hamlin Covid-19 PCR ([facility])on 04-11 [...] for this test is supported by the [place] of Health and Human Service's (HHS's) declaration [...] Performed By: #### C VDTB #### [facility] [address] [place] [address] Dr. Leni Hamlin SYMPTOMATIC COVID-19 ANTIGEN on 04-23-2022 EUA Statement SEE BELOW Normal [facility] Comment on above: Result Comment: This [...] Performed By: #### C VDAGS #### [facility] [address] [place], [place] [address] Dr. Leni Hamlin SARS-CoV-2 (COVID-19) RNA VENESSA+probe Ql (Unsp spec) Negative Normal NEGATIVE [facility] Comment on above: Performed By: #### C VDAGS #### [facility] [address] [place], [place] [address] Dr. Leni Hamlin Cardiovascular Lab Reporton 03-22-2022 Cardiovascular Lab Report [facility] Patient Name: Brian Oneal [facility] A MR #: [id number] Department of Physician: Modesto Becerra MD Medicine Service Date: 03/22/2022 Division of Birthdate: 1950 Cardiology Room #: CC [facility] [address] [place] [address] Cardiovascular Laboratory Report PACEMAKER IMPLANT PROCEDURE NOTE [...] using modified seldinger technique using a 5 [place] micro-puncture needle on two occasions and 0.35 [...] pocket was created for the device. 6 [place] Safesheaths were placed over the wire. An active fixation Biotronik pacing lead was then delivered through the 6Fsheath to the right ventricle. After confirmation of lead position on orthogonal views (RUBALCAVA and MACEDONIAN) to confirm septal position, the screw was [...] lead position on orthogonal views (RUBALCAVA and MACEDONIAN), the screw was activated. After confirmation of [...] Device info: Biotronik Edora Model# 8DR-T Serial# [id number] RA lead: Model# Biotronik Solia S45 Serial# [id number] Sensin.5mV Threshold: 0.6V@0.5ms Impedance: 507 Ohms RV lead: Model# Biotronik Solia S53 Serial# [id number] Sensin.5mV Threshold: 0.6V@0.4ms Impedance: 663 Ohms POST [...] El (more content not included)... Normal [facility] SPUTUM CULTUREon 03-17-2022 Epithelial cells LM Ql (Urine sed) Few Normal [facility] Comment on above: Performed By: #### B MP, BNP #### [facility] [address] [place] [address] Dr. Leni Hamlin Gram Stain Evaluation Comment Normal [facility] Comment on above: Result Comment: This specimen is of good quality and is acceptable for routine bacterial culture. Performed By: #### B MP, BNP #### [facility] [address] [place] [address] Dr. Leni Hamlin Lower Respiratory Culture Final report Normal [facility] Comment on above: Performed By: #### B MP, BNP #### [facility] [address] [place] [address] Dr. Leni Hamlin Result 1 Comment Normal [facility] Comment on above: Result Comment: Few gram negative rods. Performed By: #### B MP, BNP #### [facility] [address] [place] [address] Dr. Leni Hamlin Result Comment: Rout ine respiratory bola Result 2 Comment Normal [facility] Comment on above: Result Comment: Few gram positive cocci Performed By: #### B MP, BNP #### [facility] [address] [place] [address] Dr. Leni Hamlin Result 3 Comment Normal [facility] Comment on above: Result Comment: Rare gram positive rods Performed By: #### B MP, BNP #### [facility] [address] [place] [address] Dr. Leni Hamlin Result 4 Normal [facility] Comment on above: Performed By: #### B MP, BNP #### [facility] [address] [place] [address] Dr. Leni Hamlin White Blood Cells Few Normal [facility] Comment on above: Performed By: #### B MP, BNP #### [facility] [address] [place] [address] Dr. Leni Hamlin BNPon 03-15-2022 Natriuretic peptide B (Bld) [Mass/Vol] 429.0 pg/mL Normal <=900.0 [facility] Comment on above: Performed By: #### C MP, CRP #### [facility] [address] [place] [address] Dr. Leni Hamlin CBC AUTO DIFFon 03-15-2022 BASO # 0.0 103/ul Normal 0.0-0.1 [facility] Comment on above: Performed By: #### C VDAGS #### [facility] [address] [place] [address] Dr. Leni Hamlin Basophils/100 WBC (Bld) 0.2 % Normal 0.2-2.0 [facility] Comment on above: Performed By: #### C VDAGS #### [facility] [address] [place] [address] Dr. Leni Hamlin EO # 0.0 103/ul Normal 0.0-0.7 [facility] Comment on above: Performed By: #### C VDAGS #### [facility] [address] [place] [address] Dr. Leni Hamlin Eosinophils/100 WBC (Bld) 0.0 % Critically low 0.9-7.0 [facility] Comment on above: Performed By: #### C VDAGS #### [facility] [address] [place] [address] Dr. Leni Hamlin Erythrocyte distribution width (RBC) [Ratio] 13.6 % Normal 11.0-15.0 [facility] Comment on above: Performed By: #### C VDAGS #### [facility] [address] [place] [address] Dr. Leni Hamlin Hematocrit (Bld) [Volume fraction] 44.5 % Normal 42.0-54.0 [facility] Comment on above: Performed By: #### C VDAGS #### [facility] [address] [place] [address] Dr. Leni Hamlin Hemoglobin (Bld) [Mass/Vol] 13.8 g/dL Critically low 14.0-18.0 [facility] Comment on above: Performed By: #### C VDAGS #### [facility] Laboratory [address] [place] [address] Dr. Leni Hamlin IG # 0.35 10e3/ul Critically high 0.00-0.03 [place] Comment on above: Performed By: #### C VDAGS #### [facility] [address] [place] [address] Dr. Leni Hamlin IG % 2.4 % Critically high 0.0-0.5 [facility] Comment on above: Performed By: #### C VDAGS #### [facility] [address] [place] [address] Dr. Leni Hamlin LYMPH # 0.6 103/ul Critically low 1.2-3.8 [facility] Comment on above: Performed By: #### C VDAGS #### [facility] [address] [place] [address] Dr. Leni Hamlin Lymphocytes/100 WBC (Bld) 4.1 % Critically low 20.5-60.0 [facility] Comment on above: Performed By: #### C VDAGS #### [facility] [address] [place] [address] Dr. Leni Hamlin MANUAL DIFF REQ NO Normal [facility] Comment on above: Performed By: #### C VDAGS #### [facility] [address] [place] [address] Dr. Leni Hamlin MCH (RBC) [Entitic mass] 29.4 pg Normal 25.9-34.0 [facility] Comment on above: Performed By: #### C VDAGS #### [facility] [address] [place] [address] Dr. Leni Hamlin MCHC (RBC) [Mass/Vol] 31.0 g/dL Normal 29.9-35.2 [facility] Comment on above: Performed By: #### C VDAGS #### [facility] [address] [place] [address] Dr. Leni Hamlin MCV (RBC) [Entitic vol] 94.7 fL Critically high 80.0-94.0 [facility] Comment on above: Performed By: #### C VDAGS #### [facility] [address] [place] [address] Dr. Leni Hamlin MONO # 0.7 103/ul Normal 0.3-0.8 [facility] Comment on above: Performed By: #### C VDAGS #### [facility] [address] [place] [address] Dr. Leni Hamlin Monocytes/100 WBC (Bld) 4.7 % Normal 1.7-12.0 [facility] Comment on above: Performed By: #### C VDAGS #### [facility] [address] [place] [address] Dr. Leni Hamlin NEUT # 12.9 103/ul Critically high 1.4-6.5 [facility] Comment on above: Performed By: #### C VDAGS #### [facility] [address] [place] [address] Dr. Leni Hamlin Neutrophils/100 WBC (Bld) 88.6 % Critically high 43.0-75.0 [facility] Comment on above: Performed By: #### C VDAGS #### [facility] [address] [place] [address] Dr. Leni Hamlin Platelet mean volume (Bld) [Entitic vol] 10.2 fL Normal 9.5-13.5 [facility] Comment on above: Performed By: #### C VDAGS #### [facility] [address] [place] [address] Dr. Leni Hamlin PLT 176 103/ul Normal 150-450 [facility] Comment on above: Performed By: #### C VDAGS #### [facility] [address] [place] [address] Dr. Leni Hamlin RBC 4.70 106/ul Normal 4.70-6.10 [facility] Comment on above: Performed By: #### C VDAGS #### [facility] [address] [place] [address] Dr. Leni Hamlin WBC 14.6 103/ul Critically high 4.0-11.0 [facility] Comment on above: Performed By: #### C VDAGS #### [facility] [address] [place] [address] Dr. Leni Hamlin PROF CHEM 8 (BAS METB)on Anion gap [Moles/Vol] 10.2 mmol/L Normal [facility] Comment on above: Performed By: #### C MP, CRP #### [facility] [address] [place] [address] Dr. Leni Hamlin Calcium [Mass/Vol] 8.0 mg/dL Critically low 8.5-10.1 [facility] Comment on above: Performed By: #### C MP, CRP #### [facility] [address] [place] [address] Dr. Leni Hamlin Chloride [Moles/Vol] 104 mmol/L Normal 98-107 [facility] Comment on above: Performed By: #### C MP, CRP #### [facility] [address] [place] [address] Dr. Leni Hamlin CO2 [Moles/Vol] 28.2 mmol/L Normal 21.0-32.0 [facility] Comment on above: Performed By: #### C MP, CRP #### [facility] [address] [place] [address] Dr. Leni Hamlin Creatinine [Mass/Vol] 1.36 mg/dL Critically high 0.70-1.30 [facility] Comment on above: Performed By: #### C MP, CRP #### [facility] [address] [address] [address] Leni Hamlin EGFR-AF PARAGUAYAN >60 Normal >=60 [facility] Comment on above: Performed By: #### C MP, CRP #### [facility] [address] [address] [address] Leni Hamlin EGFR-NON AF PARAGUAYAN 51 mL/min/1.73m2 Critically low >=60 [facility] Comment on above: Performed By: #### C MP, CRP #### [facility] [address] [address] [address] Leni Hamlin Glucose [Mass/Vol] 205 mg/dL Critically high 74-106 [facility] Comment on above: Performed By: #### C MP, CRP #### [facility] [address] [place] [address] Dr. Leni Hamlin Potassium [Moles/Vol] 4.4 mmol/L Normal 3.5-5.1 [facility] Comment on above: Performed By: #### C MP, CRP #### [facility] [address] [place] [address] Dr. Leni Hamlin Sodium [Moles/Vol] 138 mmol/L Normal 136-145 [facility] Comment on above: Performed By: #### C MP, CRP #### [facility] [address] [place] [address] Dr. Leni Hamlin Urea nitrogen [Mass/Vol] 29.0 mg/dL Critically high 7.0-18.0 [facility] Comment on above: Performed By: #### C MP, CRP #### [facility] [address] [place] [address] Dr. Leni Hamlin Urea nitrogen/Creatinine [Mass ratio] 21.3 mg/mg Normal [facility] Comment on above: Performed By: #### C MP, CRP #### [facility] [address] [place] [address] Dr. Leni Hamlin BNPon 03-14-2022 Natriuretic peptide B (Bld) [Mass/Vol] 337.0 pg/mL Normal <=900.0 [facility] Comment on above: Performed By: #### C RP #### [facility] [address] [place] [address] Dr. Leni Hamlin CBC AUTO DIFFon 03-14-2022 BASO # 0.0 103/ul Normal 0.0-0.1 [facility] Comment on above: Performed By: #### C MP, CRP #### [facility] [address] [place] [address] Dr. Leni Hamlin Basophils/100 WBC (Bld) 0.2 % Normal 0.2-2.0 [facility] Comment on above: Performed By: #### C MP, CRP #### [facility] [address] [place] [address] Dr. Leni Hamlin EO # 0.0 103/ul Normal 0.0-0.7 [facility] Comment on above: Performed By: #### C MP, CRP #### [facility] [address] [place] [address] Dr. Leni Hamlin Eosinophils/100 WBC (Bld) 0.0 % Critically low 0.9-7.0 [facility] Comment on above: Performed By: #### C MP, CRP #### [facility] [address] [place] [address] Dr. Leni Hamlin Erythrocyte distribution width (RBC) [Ratio] 13.6 % Normal 11.0-15.0 [facility] Comment on above: Performed By: #### C MP, CRP #### [facility] [address] [place] [address] Dr. Leni Hamlin Hematocrit (Bld) [Volume fraction] 47.8 % Normal 42.0-54.0 [facility] Comment on above: Performed By: #### C MP, CRP #### [facility] [address] [place] [address] Dr. Leni Hamlin Hemoglobin (Bld) [Mass/Vol] 14.6 g/dL Normal 14.0-18.0 [facility] Comment on above: Performed By: #### C MP, CRP #### [facility] [address] [place] [address] Dr. Leni Hamlin IG # 0.22 10e3/ul Critically high 0.00-0.03 [place] Comment on above: Performed By: #### C MP, CRP #### [facility] [address] [place] [address] Dr. Leni Hamlin IG % 1.3 % Critically high 0.0-0.5 [facility] Comment on above: Performed By: #### C MP, CRP #### [facility] [address] [address] [address] Leni Hamlin LYMPH # 0.5 103/ul Critically low 1.2-3.8 [facility] Comment on above: Performed By: #### C MP, CRP #### [facility] [address] [place] [address] Dr. Leni Hamlin Lymphocytes/100 WBC (Bld) 2.9 % Critically low 20.5-60.0 [facility] Comment on above: Performed By: #### C MP, CRP #### [facility] [address] [place] [address] Dr. Leni Hamlin MANUAL DIFF REQ NO Normal [facility] Comment on above: Performed By: #### C MP, CRP #### [facility] [address] [place] [address] Dr. Leni Hamlin MCH (RBC) [Entitic mass] 29.4 pg Normal 25.9-34.0 [facility] Comment on above: Performed By: #### C MP, CRP #### [facility] [address] [place] [address] Dr. Leni Hamlin MCHC (RBC) [Mass/Vol] 30.5 g/dL Normal 29.9-35.2 [facility] Comment on above: Performed By: #### C MP, CRP #### [facility] [address] [place] [address] Dr. Leni Hamlin MCV (RBC) [Entitic vol] 96.4 fL Critically high 80.0-94.0 [facility] Comment on above: Performed By: #### C MP, CRP #### [facility] [address] [place] [address] Dr. Leni Hamlin MONO # 1.1 103/ul Critically high 0.3-0.8 [facility] Comment on above: Performed By: #### C MP, CRP #### [facility] [address] [place] [address] Dr. Leni Hamlin Monocytes/100 WBC (Bld) 6.4 % Normal 1.7-12.0 [facility] Comment on above: Performed By: #### C MP, CRP #### [facility] [address] [place] [address] Dr. Leni Hamlin NEUT # 15.2 103/ul Critically high 1.4-6.5 [facility] Comment on above: Performed By: #### C MP, CRP #### [facility] [address] [place] [address] Dr. Leni Hamlin Neutrophils/100 WBC (Bld) 89.2 % Critically high 43.0-75.0 [facility] Comment on above: Performed By: #### C MP, CRP #### [facility] [address] [place] [address] Dr. Leni Hamlin Platelet mean volume (Bld) [Entitic vol] 10.4 fL Normal 9.5-13.5 [facility] Comment on above: Performed By: #### C MP, CRP #### [facility] [address] [place] [address] Dr. Leni Hamlin PLT 167 103/ul Normal 150-450 [facility] Comment on above: Performed By: #### C MP, CRP #### [facility] [address] [place] [address] Dr. Leni Hamlin RBC 4.96 106/ul Normal 4.70-6.10 [facility] Comment on above: Performed By: #### C MP, CRP #### [facility] [address] [place] [address] Dr. Leni Hamlin WBC 17.0 103/ul Critically high 4.0-11.0 [facility] Comment on above: Performed By: #### C MP, CRP #### [facility] [address] [place] [address] Dr. Leni Hamlin PROF CHEM 8 (BAS METB)on Anion gap [Moles/Vol] 7.0 mmol/L Normal [facility] Comment on above: Performed By: #### C VDAGS #### [facility] [address] [place] [address] Dr. Leni Hamlin Calcium [Mass/Vol] 8.3 mg/dL Critically low 8.5-10.1 [facility] Comment on above: Performed By: #### C VDAGS #### [facility] [address] [place] [address] Dr. Leni Hamlin Chloride [Moles/Vol] 102 mmol/L Normal 98-107 [facility] Comment on above: Performed By: #### C VDAGS #### [facility] [address] [place] [address] Dr. Leni Hamlin CO2 [Moles/Vol] 29.6 mmol/L Normal 21.0-32.0 [facility] Comment on above: Performed By: #### C VDAGS #### [facility] [address] [place] [address] Dr. Leni Hamlin Creatinine [Mass/Vol] 1.48 mg/dL Critically high 0.70-1.30 [facility] Comment on above: Performed By: #### C VDAGS #### [facility] [address] [place] [address] Dr. Leni Hamlin EGFR-AF PARAGUAYAN 56 mL/min/1.73m2 Critically low >=60 [facility] Comment on above: Performed By: #### C VDAGS #### [facility] [address] [place] [address] Dr. Leni Hamlin EGFR-NON AF PARAGUAYAN 47 mL/min/1.73m2 Critically low >=60 [facility] Comment on above: Performed By: #### C VDAGS #### [facility] [address] [place] [address] Dr. Leni Hamlin Glucose [Mass/Vol] 168 mg/dL Critically high 74-106 [facility] Comment on above: Performed By: #### C VDAGS #### [facility] [address] [place] [address] Dr. Leni Hamlin Potassium [Moles/Vol] 4.6 mmol/L Normal 3.5-5.1 [facility] Comment on above: Performed By: #### C VDAGS #### [facility] [address] [place] [address] Dr. Leni Hamlin Sodium [Moles/Vol] 134 mmol/L Critically low 136-145 [facility] Comment on above: Performed By: #### C VDAGS #### [facility] [address] [place] [address] Dr. Leni Hamlin Urea nitrogen [Mass/Vol] 29.0 mg/dL Critically high 7.0-18.0 [facility] Comment on above: Performed By: #### C VDAGS #### [facility] [address] [place] [address] Dr. Leni Hamlin Urea nitrogen/Creatinine [Mass ratio] 19.6 mg/mg Normal [facility] Comment on above: Performed By: #### C VDAGS #### [facility] [address] [place] [address] Dr. Leni Hamlin BNPon 03-13-2022 Natriuretic peptide B (Bld) [Mass/Vol] 501.0 pg/mL Normal <=900.0 [facility] Comment on above: Performed By: #### B MP, BNP #### [facility] [address] [place] [address] Dr. Leni Hamlin CBC W MANUAL DIFFon 03-13-20 22 ATYPICAL LYMPH # Normal [facility] Comment on above: Performed By: #### C VDAGS #### [facility] [address] [place] [address] Dr. Leni Hamlin ATYPICAL LYMPH % Normal [facility] Comment on above: Performed By: #### C VDAGS #### [facility] [address] [place] [address] Dr. Leni Hamlin BAND # 2.1 103/ul Critically high 0.0-0.3 [facility] Comment on above: Performed By: #### C VDAGS #### [facility] [address] [address] [address] Leni Hamlin BAND % 12 % Critically high 0-5 [facility] Comment on above: Performed By: #### C VDAGS #### [facility] [address] [address] [address] Leni Hamlin BASOM # 0.00 103/ul Normal 0.00-0.10 [facility] Comment on above: Performed By: #### C VDAGS #### [facility] [address] [place] [address] Dr. Leni Hamlin BASOM % 0.0 % Critically low 0.2-2.0 [facility] Comment on above: Performed By: #### C VDAGS #### [facility] [address] [place] [address] Dr. Leni Hamlin BLAST # Normal [facility] Comment on above: Performed By: #### C VDAGS #### [facility] [address] [place] [address] Dr. Leni Hamlin BLAST % Normal [facility] Comment on above: Performed By: #### C VDAGS #### [facility] [address] [place] [address] Dr. Leni Hamlin CORRECTED WBC Normal 4.0-11.0 [facility] Comment on above: Performed By: #### C VDAGS #### [facility] [address] [place] [address] Dr. Leni Hamlin EOS # 0.00 103/ul Normal 0.00-0.70 [facility] Comment on above: Performed By: #### C VDAGS #### [facility] [address] [place] [address] Dr. Leni Hamlin EOS% 0.0 % Critically low 0.9-7.0 [facility] Comment on above: Performed By: #### C VDAGS #### [facility] [address] [place] [address] Dr. Leni Hamlin HCT 51.2 % Normal 42.0-54.0 [facility] Comment on above: Performed By: #### C VDAGS #### [facility] [address] [address] [address] Leni Hamlin HGB 15.4 g/dl Normal 14.0-18.0 [facility] Comment on above: Performed By: #### C VDAGS #### [facility] [address] [address] [address] Leni Hamlin LYMPHM # 0.52 103/ul Critically low 1.20-3.80 [facility] Comment on above: Performed By: #### C VDAGS #### [facility] [address] [place] [address] Dr. Leni Hamlin LYMPHM% 3.0 % Critically low 20.5-60.0 [facility] Comment on above: Performed By: #### C VDAGS #### [facility] [address] [place] [address] Dr. Leni Hamlin MCH 29.6 pg Normal 25.9-34.0 [facility] Comment on above: Performed By: #### C VDAGS #### [facility] [address] [place] [address] Dr. Leni Hamlin MCHC 30.1 g/dl Normal 29.9-35.2 [facility] Comment on above: Performed By: #### C VDAGS #### [facility] [address] [place] [address] Dr. Leni Hamlin MCV 98.5 fL Critically high 80.0-94.0 [facility] Comment on above: Performed By: #### C VDAGS #### [facility] [address] [place] [address] Dr. Leni Hamlin METAMYELOCYTE # Normal [facility] Comment on above: Performed By: #### C VDAGS #### [facility] [address] [place] [address] Dr. Leni Hamlin METAMYELOCYTE % Normal [facility] Comment on above: Performed By: #### C VDAGS #### [facility] [address] [place] [address] Dr. Leni Hamlin MONOM# 0.86 103/ul Critically high 0.30-0.80 [facility] Comment on above: Performed By: #### C VDAGS #### [facility] [address] [place] [address] Dr. Leni Hamlin MONOM% 5.0 % Normal 1.7-12.0 [facility] Comment on above: Performed By: #### C VDAGS #### [facility] [address] [place] [address] Dr. Leni Hamlin MPV 10.0 fL Normal 9.5-13.5 [facility] Comment on above: Performed By: #### C VDAGS #### [facility] [address] [place] [address] Dr. Leni Hamlin MYELOCYTE # Normal [facility] Comment on above: Performed By: #### C VDAGS #### [facility] [address] [place] [address] Dr. Leni Hamlin MYELOCYTE % Normal [facility] Comment on above: Performed By: #### C VDAGS #### [facility] [address] [place] [address] Dr. Leni Hamlin NRBC Normal [facility] Comment on above: Performed By: #### C VDAGS #### [facility] [address] [place] [address] Dr. Leni Hamlin PLT 161 103/ul Normal 150-450 [facility] Comment on above: Performed By: #### C VDAGS #### [facility] [address] [place] [address] Dr. Leni Hamlin RBC 5.20 106/ul Normal 4.70-6.10 [facility] Comment on above: Performed By: #### C VDAGS #### [facility] [address] [place] [address] Dr. Leni Hamlin RDW 13.5 % Normal 11.0-15.0 [facility] Comment on above: Performed By: #### C VDAGS #### [facility] [address] [place] [address] Dr. Leni Hamlin SEG # 13.76 103/ul Critically high 1.40-6.50 [place] Comment on above: Performed By: #### C VDAGS #### [facility] [address] [place] [address] Dr. Leni Hamlin SEG % 80.0 % Critically high 43.0-75.0 [facility] Comment on above: Performed By: #### C VDAGS #### [facility] [address] [place] [address] Dr. Leni Hamlin WBC 17.2 103/ul Critically high 4.0-11.0 [facility] Comment on above: Performed By: #### C VDAGS #### [facility] [address] [place] [address] Dr. Leni Hamlin PROF CHEM 8 (BAS METB)on Anion gap [Moles/Vol] 10.7 mmol/L Normal [facility] Comment on above: Performed By: #### B MP, BNP #### [facility] [address] [place] [address] Dr. Leni Hamlin Anion gap [Moles/Vol] 12.5 mmol/L Normal [facility] Comment on above: Performed By: #### C VDAGS #### [facility] [address] [place] [address] Dr. Leni Hamlin Calcium [Mass/Vol] 8.2 mg/dL Critically low 8.5-10.1 [facility] Comment on above: Performed By: #### B MP, BNP #### [facility] [address] [place] [address] Dr. Leni Hamlin Calcium [Mass/Vol] 8.4 mg/dL Critically low 8.5-10.1 [facility] Comment on above: Performed By: #### C VDAGS #### [facility] [address] [place] [address] Dr. Leni Hamlin Chloride [Moles/Vol] 101 mmol/L Normal 98-107 [facility] Comment on above: Performed By: #### B MP, BNP #### [facility] [address] [place] [address] Dr. Leni Hamlin Chloride [Moles/Vol] 100 mmol/L Normal 98-107 [facility] Comment on above: Performed By: #### C VDAGS #### [facility] [address] [place] [address] Dr. Leni Hamlin CO2 [Moles/Vol] 30.0 mmol/L Normal 21.0-32.0 [facility] Comment on above: Performed By: #### B MP, BNP #### [facility] [address] [place] [address] Dr. Leni Hamlin CO2 [Moles/Vol] 26.7 mmol/L Normal 21.0-32.0 [facility] Comment on above: Performed By: #### C VDAGS #### [facility] [address] [place] [address] Dr. Leni Hamlin Creatinine [Mass/Vol] 1.49 mg/dL Critically high 0.70-1.30 [facility] Comment on above: Performed By: #### B MP, BNP #### [facility] [address] [place] [address] Dr. Leni Hamlin Creatinine [Mass/Vol] 1.87 mg/dL Critically high 0.70-1.30 [facility] Comment on above: Performed By: #### C VDAGS #### [facility] [address] [place] [address] Dr. Leni Hamlin EGFR-AF PARAGUAYAN 56 mL/min/1.73m2 Critically low >=60 [facility] Comment on above: Performed By: #### B MP, BNP #### [facility] [address] [place] [address] Dr. Leni Hamlin EGFR-AF PARAGUAYAN 43 mL/min/1.73m2 Critically low >=60 [facility] Comment on above: Performed By: #### C VDAGS #### [facility] [address] [place] [address] Dr. Leni Hamlin EGFR-NON AF PARAGUAYAN 46 mL/min/1.73m2 Critically low >=60 [facility] Comment on above: Performed By: #### B MP, BNP #### [facility] [address] [address] [address] Leni Hamlin EGFR-NON AF PARAGUAYAN 36 mL/min/1.73m2 Critically low >=60 [facility] Comment on above: Performed By: #### C VDAGS #### [facility] [address] [address] [address] Leni Hamlin Glucose [Mass/Vol] 158 mg/dL Critically high 74-106 [facility] Comment on above: Performed By: #### B MP, BNP #### [facility] [address] [address] [address] Leni Hamlin Glucose [Mass/Vol] 222 mg/dL Critically high 74-106 [facility] Comment on above: Performed By: #### C VDAGS #### [facility] [address] [place] [address] Dr. Leni Hamlin Potassium [Moles/Vol] 5.7 mmol/L Critically high 3.5-5.1 [facility] Comment on above: Performed By: #### B MP, BNP #### [facility] [address] [address] [address] Leni Hamlin Potassium [Moles/Vol] 4.2 mmol/L Normal 3.5-5.1 [facility] Comment on above: Performed By: #### C VDAGS #### [facility] [address] [address] [address] Leni Hamlin Sodium [Moles/Vol] 136 mmol/L Normal 136-145 [facility] Comment on above: Performed By: #### B MP, BNP #### [facility] [address] [address] [address] Leni Hamlin Sodium [Moles/Vol] 135 mmol/L Critically low 136-145 [facility] Comment on above: Performed By: #### C VDAGS #### [facility] [address] [address] [address] Leni Hamlin Urea nitrogen [Mass/Vol] 19.0 mg/dL Critically high 7.0-18.0 [facility] Comment on above: Performed By: #### B MP, BNP #### [facility] [address] [place] [address] Dr. Leni Hamlin Urea nitrogen [Mass/Vol] 25.0 mg/dL Critically high 7.0-18.0 [facility] Comment on above: Performed By: #### C VDAGS #### [facility] [address] [place] [address] Dr. Leni Hamlin Urea nitrogen/Creatinine [Mass ratio] 12.8 mg/mg Normal [facility] Comment on above: Performed By: #### B MP, BNP #### [facility] [address] [place] [address] Dr. Leni Hamlin Urea nitrogen/Creatinine [Mass ratio] 13.4 mg/mg Normal [facility] Comment on above: Performed By: #### C VDAGS #### [facility] [address] [place] [address] Dr. Leni Hamlin BNPon 03-12-2022 Natriuretic peptide B (Bld) [Mass/Vol] 405.0 pg/mL Normal <=900.0 [facility] Comment on above: Performed By: #### B MP, BNP #### [facility] [address] [place] [address] Dr. Leni Hamlin CBC AUTO DIFFon 03-12-2022 BASO # 0.1 103/ul Normal 0.0-0.1 [facility] Comment on above: Performed By: #### C BC #### [facility] [address] [place] [address] Dr. Leni Hamlin Basophils/100 WBC (Bld) 0.3 % Normal 0.2-2.0 [facility] Comment on above: Performed By: #### C BC #### [facility] [address] [place] [address] Dr. Leni Hamlin EO # 0.0 103/ul Normal 0.0-0.7 [facility] Comment on above: Performed By: #### C BC #### [facility] [address] [place] [address] Dr. Leni Hamlin Eosinophils/100 WBC (Bld) 0.1 % Critically low 0.9-7.0 [facility] Comment on above: Performed By: #### C BC #### [facility] [address] [place] [address] Dr. Leni Hamlin Erythrocyte distribution width (RBC) [Ratio] 13.3 % Normal 11.0-15.0 [facility] Comment on above: Performed By: #### C BC #### [facility] [address] [place] [address] Dr. Leni Hamlin Hematocrit (Bld) [Volume fraction] 52.2 % Normal 42.0-54.0 [facility] Comment on above: Performed By: #### C BC #### [facility] [address] [place] [address] Dr. Leni Hamlin Hemoglobin (Bld) [Mass/Vol] 16.5 g/dL Normal 14.0-18.0 [facility] Comment on above: Performed By: #### C BC #### [facility] [address] [place] [address] Dr. Leni Hamlin IG # 0.19 10e3/ul Critically high 0.00-0.03 [place] Comment on above: Performed By: #### C BC #### [facility] [address] [place] [address] Dr. Leni Hamlin IG % 1.0 % Critically high 0.0-0.5 [facility] Comment on above: Performed By: #### C BC #### [facility] [address] [place] [address] Dr. Leni Hamlin LYMPH # 0.8 103/ul Critically low 1.2-3.8 [facility] Comment on above: Performed By: #### C BC #### [facility] [address] [place] [address] Dr. Leni Hamlin Lymphocytes/100 WBC (Bld) 3.8 % Critically low 20.5-60.0 [facility] Comment on above: Performed By: #### C BC #### [facility] [address] [place] [address] Dr. Leni Hamlin MANUAL DIFF REQ NO Normal [facility] Comment on above: Performed By: #### C BC #### [facility] [address] [place] [address] Dr. Leni Hamlin MCH (RBC) [Entitic mass] 29.6 pg Normal 25.9-34.0 [facility] Comment on above: Performed By: #### C BC #### [facility] [address] [place] [address] Dr. Leni Hamlin MCHC (RBC) [Mass/Vol] 31.6 g/dL Normal 29.9-35.2 [facility] Comment on above: Performed By: #### C BC #### [facility] [address] [place] [address] Dr. Leni Hamlin MCV (RBC) [Entitic vol] 93.7 fL Normal 80.0-94.0 [facility] Comment on above: Performed By: #### C BC #### [facility] [address] [place] [address] Dr. Leni Hamlin MONO # 1.6 103/ul Critically high 0.3-0.8 [facility] Comment on above: Performed By: #### C BC #### [facility] [address] [place] [address] Dr. Leni Hamlin Monocytes/100 WBC (Bld) 8.3 % Normal 1.7-12.0 [facility] Comment on above: Performed By: #### C BC #### [facility] [address] [place] [address] Dr. Leni Hamlin NEUT # 17.0 103/ul Critically high 1.4-6.5 [facility] Comment on above: Performed By: #### C BC #### [facility] [address] [place] [address] Dr. Leni Hamlin Neutrophils/100 WBC (Bld) 86.5 % Critically high 43.0-75.0 [facility] Comment on above: Performed By: #### C BC #### [facility] [address] [place] [address] Dr. Leni Hamlin Platelet mean volume (Bld) [Entitic vol] 10.0 fL Normal 9.5-13.5 [facility] Comment on above: Performed By: #### C BC #### [facility] [address] [place], [place] [address] Dr. Leni Hamlin PLT 194 103/ul Normal 150-450 [facility] Comment on above: Performed By: #### C BC #### [facility] [address] [address] [address] Leni Hamlin RBC 5.57 106/ul Normal 4.70-6.10 [facility] Comment on above: Performed By: #### C BC #### [facility] [id number] Leni Hamlin WBC 19.7 103/ul Critically high 4.0-11.0 [facility] Comment on above: Performed By: #### C BC #### [facility] [address] [address] CSPINE WO CONon [...] HERNÁNDEZ Date: 2022-03-12 13:42 Normal [facility] CT HEAD WO CONon 03-12-2022 [...] [place] Date: 2022-03-12 13:20 Normal [facility] CTA CHEST WO W CONon [...] HERNÁNDEZ Date: 2022-03-12 14:46 Normal [facility] CULTURE BLOODon 03-12-2022 Microscopic examination of blood, culture Culture Observations: NO GROWTH AT 5 DAYS. Normal [facility] Comment on above: Performed By: #### C MP, CRP #### [facility] [address] [place] [address] Dr. Leni Hamlin Cov[facility]-19 PCR [facility]on SARS-CoV-2 (COVID-19) RNA VENESSA+probe Ql [...] Administration (FDA). This test was developed by [employer], [place], [place]. The performance characteristics of this test were validated by [facility]. The results are not intended to be used as the sole means for clinical diagnosis or patient management decisions. [facility] is authorized under Clinical Laboratory [...] for this test is supported by the [place] of Health and Human Service's declaration that [...] Performed By: #### C RP #### [facility] [address] [place] [address] Dr. Leni Hamlin D-DIMERon 03-12-2022 D-DIMER 6.00 mg/L FEU Critically high 0.19-0.50 [facility] Comment on above: Performed By: #### B MP, BNP #### [facility] [address] [place] [address] Dr. Leni Hamlin D-DIMER COMMENTS SEE BELOW Normal [facility] Comment on above: Result Comment: Incr eases [...] By: #### B MP, BNP #### [facility] [address] [place] [address] Dr. Leni Hamlin ER URINE PROFILEon 2 Bilirubin Ql (U) Negative Normal NEGATIVE [facility] Comment on above: Performed By: #### C RP #### [facility] [address] [place] [address] Dr. Leni Hamlin Clarity (U) CLEAR Normal CLEAR [facility] Comment on above: Performed By: #### C RP #### [facility] [address] [place] [address] Dr. Leni Hamlin Color (U) YELLOW Normal YELLOW [facility] Comment on above: Performed By: #### C RP #### [facility] [address] [place] [address] Dr. Leni ELLIS A micrscopic examination will be performed if indicated. Normal [facility] Comment on above: Performed By: #### C RP #### [facility] [address] [place] [address] Dr. Leni Hamlin Glucose Ql (U) Negative Normal NEGATIVE [facility] Comment on above: Performed By: #### C RP #### [facility] [address] [place] [address] Dr. Leni Hamlin Hemoglobin Ql (U) SMALL Abnormal NEGATIVE [place] Comment on above: Performed By: #### C RP #### [facility] [address] [place] [address] Dr. Leni Hamlin Ketones Ql (U) Negative Normal NEGATIVE [facility] Comment on above: Performed By: #### C RP #### [facility] [address] [place] [address] Dr. Leni Hamlin LEUKOCYTES Negative Normal NEGATIVE [facility] Comment on above: Performed By: #### C RP #### [facility] [address] [place] [address] Dr. Leni Hamlin Nitrite Ql (U) Negative Normal NEGATIVE [facility] Comment on above: Performed By: #### C RP #### [facility] [address] [place] [address] Dr. Leni Hamlin pH (U) 5.5 [pH] Normal 5-9 [facility] Comment on above: Performed By: #### C RP #### [facility] [address] [place] [address] Dr. Leni Hamlin SPEC GRAVITY <=1.005 Abnormal 1.005-<=1.025 [facility] Comment on above: Performed By: #### C RP #### [facility] [address] [place] [address] Dr. Leni Hamlin UA PROTEIN >300 Abnormal NEGATIVE/ TRACE [facility] Comment on above: Performed By: #### C RP #### [facility] [address] [place] [address] Dr. Leni Hamlin UR MICRO IND INDICATED Normal [facility] Comment on above: Performed By: #### C RP #### [facility] [address] [place] [address] Dr. Leni Hamlin Urobilinogen Qn (U) 0.2 {Stacy'U}/dL Normal 0.2 - 1. 0 [facility] Comment on above: Performed By: #### C RP #### [facility] [address] [place] [address] Dr. Leni Hamlin LACTATE/LACTIC ACIDon 2021 Lactate [Moles/Vol] 1.6 mmol/L Normal 0.4-2.0 [facility] Comment on above: Performed By: #### L ACT #### [facility] [address] [address] [address] Leni Hamlin Lactate [Moles/Vol] 0.5 mmol/L Normal 0.4-2.0 [facility] Comment on above: Performed By: #### B MP, BNP #### [facility] [address] [address] [address] Leni Hamlin PROF 14(COMP METB)on 022 Albumin [Mass/Vol] 3.1 g/dL Critically low 3.4-5.0 [facility] Comment on above: Performed By: #### B MP, BNP #### [facility] [address] [address] [address] Leni Hamlin Albumin/Globulin [Mass ratio] 0.8 {ratio} Normal [facility] Comment on above: Performed By: #### B MP, BNP #### [facility] [address] [place] [address] Dr. Leni Hamlin ALP [Catalytic activity/Vol] 52 U/L Normal 46-116 [facility] Comment on above: Performed By: #### B MP, BNP #### [facility] [address] [place] [address] Dr. Leni Hamlin ALT [Catalytic activity/Vol] 27 U/L Normal 16-63 [facility] Comment on above: Performed By: #### B MP, BNP #### [facility] [address] [place] [address] Dr. Leni Hamlin Anion gap [Moles/Vol] 12.9 mmol/L Normal [facility] Comment on above: Performed By: #### B MP, BNP #### [facility] [address] [place] [address] Dr. Leni Hamlin AST [Catalytic activity/Vol] 14 U/L Critically low 15-37 [facility] Comment on above: Performed By: #### B MP, BNP #### [facility] [address] [place] [address] Dr. Leni Hamlin Bilirubin [Mass/Vol] 1.2 mg/dL Critically high 0.2-1.0 [facility] Comment on above: Performed By: #### B MP, BNP #### [facility] [address] [address] [address] Leni Hamlin Calcium [Mass/Vol] 8.2 mg/dL Critically low 8.5-10.1 [facility] Comment on above: Performed By: #### B MP, BNP #### [facility] [address] [address] [address] Leni Hamlin Chloride [Moles/Vol] 99 mmol/L Normal 98-107 [facility] Comment on above: Performed By: #### B MP, BNP #### [facility] [address] [place] [address] Dr. Leni Hamlin CO2 [Moles/Vol] 28.4 mmol/L Normal 21.0-32.0 [facility] Comment on above: Performed By: #### B MP, BNP #### [facility] [address] [place] [address] Dr. Leni Hamlin Creatinine [Mass/Vol] 1.44 mg/dL Critically high 0.70-1.30 [facility] Comment on above: Performed By: #### B MP, BNP #### [facility] [address] [place] [address] Dr. Leni Hamlin EGFR-AF PARAGUAYAN 58 mL/min/1.73m2 Critically low >=60 [facility] Comment on above: Performed By: #### B MP, BNP #### [facility] [address] [place] [address] Dr. Leni Hamlin EGFR-NON AF PARAGUAYAN 48 mL/min/1.73m2 Critically low >=60 [facility] Comment on above: Performed By: #### B MP, BNP #### [facility] [address] [place] [address] Dr. Leni Hamlin Globulin (S) [Mass/Vol] 3.8 g/dL Normal [facility] Comment on above: Performed By: #### B MP, BNP #### [facility] [address] [place] [address] Dr. Leni Hamlin Glucose [Mass/Vol] 137 mg/dL Critically high 74-106 [facility] Comment on above: Performed By: #### B MP, BNP #### [facility] [address] [address] [address] Leni Hamlin Potassium [Moles/Vol] 4.3 mmol/L Normal 3.5-5.1 [facility] Comment on above: Performed By: #### B MP, BNP #### [facility] [address] [place] [address] Dr. Leni Hamlin Protein [Mass/Vol] 6.9 g/dL Normal 6.1-8.2 [facility] Comment on above: Performed By: #### B MP, BNP #### [facility] [address] [place] [address] Dr. Leni Hamlin Sodium [Moles/Vol] 136 mmol/L Normal 136-145 [facility] Comment on above: Performed By: #### B MP, BNP #### [facility] [address] [place] [address] Dr. Leni Hamlin Urea nitrogen [Mass/Vol] 15.0 mg/dL Normal 7.0-18.0 [facility] Comment on above: Performed By: #### B MP, BNP #### [facility] [address] [place] [address] Dr. Leni Hamlin Urea nitrogen/Creatinine [Mass ratio] 10.4 mg/mg Normal [facility] Comment on above: Performed By: #### B MP, BNP #### [facility] [address] [place] [address] Dr. Leni Hamlin PROTIMEon 03-12-2022 INR Coag (PPP) [Relative time] 1.07 {INR} Normal [facility] Comment on above: Performed By: #### B MP, BNP #### [facility] [address] [place] [address] Dr. Leni Hamlin INR GUIDELINES SEE BELOW Normal [facility] Comment on above: Result Comment: WAQAS RED INR: 2.0 - 3.0 CONDITIONS NOT LISTED BELOW 2.5 - 3.5 FOR PROSTHETIC HEART VALVE REPLACEMENT 2.5 - 3.5 RECURRENT THROMBOSIS Performed By: #### B MP, BNP #### [facility] [address] [place] [address] Dr. eLni Hamlin PT Coag (PPP) [Time] 11.5 s Normal 9.0-11.6 [facility] Comment on above: Performed By: #### B MP, BNP #### [facility] [address] [place] [address] Dr. Leni Hamlin TROPONIN, HIGH SENSITIVITYon 03-12-2022 HSTROP 12.8 pg/mL Normal 4.0-76.1 [facility] Comment on above: Result Comment: CUT- OFF POINTS HAVE BEEN ESTABLISHED BASED ON THE FOURTH UNIVERSAL DEFINITIONS OF MYOCARDIAL INFARCTION. THE UPPER REFERENCE LIMIT (URL) OF TROPONIN, DEFINED THE 99TH PERCENTILE OF cTnI DISTRIBUTION IN A REFERENCE POPULATION, HAS BEEN CONFIRMED THE DECISION THRESHOLD FOR [place] DIAGNOSIS. Performed By: #### B MP, BNP #### [facility] [address] [place] [address] Dr. Leni Hamlin URINE MICROSCOPIC ONLYon BACTERIA NONE SEEN Normal NONE SEEN [facility] Comment on above: Performed By: #### C RP #### [facility] [address] [place] [address] Dr. Leni Hamlin Bacteria identified Cx Nom (U) NOT INDICATED Normal [facility] Comment on above: Performed By: #### C RP #### [facility] [address] [place] [address] Dr. Leni Hamlin CAST NONE SEEN Normal NONE SEEN [facility] Comment on above: Performed By: #### C RP #### [facility] [address] [place] [address] Dr. Leni Hamlin Crystals LM Nom (Urine sed) NONE SEEN Normal NONE SEEN [facility] Comment on above: Performed By: #### C RP #### [facility] [address] [place] [address] Dr. Leni Hamlin Epithelial cells LM Ql (Urine sed) NONE SEEN Normal NONE SEEN /RARE [facility] Comment on above: Performed By: #### C RP #### [facility] [address] [place] [address] Dr. Leni Hamlin MUCOUS MODERATE Abnormal NONE SEEN [facility] Comment on above: Performed By: #### C RP #### [facility] [address] [address] [address] Leni Hamlin RBC 2-5 Abnormal 0-2 [facility] Comment on above: Performed By: #### C RP #### [facility] [address] [address] [address] Leni Hamlin WBC NONE SEEN Normal NONE SEEN [facility] Comment on above: Performed By: #### C RP #### [facility] [address] [address] [address] Leni Hamlin XR RIBS RT PA [...] HERNÁNDEZ Date: 2022-03-12 13:35 Normal [facility] Covid-19 PCR (CVDTB)on 01-09 SARS-CoV-2 (COVID-19) [...] for this test is supported by the [place] Judge of Health and Human Service's (HHS's) declaration [...] Performed By: #### C RP #### [facility] [address] [place] [address] Dr. Leni Hamlin INFLUENZA A AND B AGon 01-25 [facility] SEE BELOW Normal [facility] Comment on above: Result Comment: Nega tive for Flu A protein angiten. Infection due to Flu A cannot be ruled out. Flu A angiten in the sample may be below the detection limit of the test. Performed By: #### C RP #### [facility] [address] [place] [address] Dr. Leni Hamlin [facility] SEE BELOW Normal [facility] Comment on above: Result Comment: Nega tive for Flu B protein antigen. Infection due to Flu B cannot be ruled out. Flu B antigen in the sample may be below the detection limit of the test. Performed By: #### C RP #### [facility] [address] [place] [address] Dr. Leni Hamlin INFLUENZA A AG Negative Normal NEGATIVE SEE COMMENT [facility] Comment on above: Performed By: #### C RP #### [facility] [address] [place] [address] Dr. Leni Hamlin INFLUENZA B AG Negative Normal NEGATIVE SEE COMMENT [facility] Comment on above: Performed By: #### C RP #### [facility] [address] [place] [address] Dr. Leni Hamlin INTERNAL CONTROLS Within Normal Limits Normal Wi thin Normal Limits [facility] Comment on above: Performed By: #### C RP #### [facility] [address] [place] [address] Dr. Leni Hamlin COVID-19 Antigenon 2 COVID-19 [...] its performance Cindy Disclaimer characteristic determined by [employer] and Cindy Disclaimer validated at [facility]. This Cindy Disclaimer test has not [...] Emergency Use Authorization for Coronavirus Cindy Disclaimer is during the Public Health Emergency) Cindy Disclaimer [...] is terminated or revoked sooner. PERFORMED BY: [place] [phone] PATHOLOGIST PRINT JOURNALIST ZOHAIB JEWELL M.D. [facility] Comment on above: Performed By: #### C OVID-19 CINDY, SOFIANEG #### [address] Cindy Ag Negativeon 12-01-19 22 Cindy Ag Negative Negative Normal Negative [facility] Comment on above: Result Comment: This is a duplicate Cindy SARS Antigen (JENNIFER) result to be used for statistical tracking purpose only. PERFORMED BY: [place] [phone] PATHOLOGIST PRINT JOURNALIST ZOHAIB JEWELL M.D. Performed By: #### C OVID-19 CINDY, SOFIANEG #### [address] Progress note 04-24-2024 Note Date & Type Note Facility 04-24-2024 Note [facility] - [facility] Subjective Brian Oneal is a 74 [...] in February 2024 while admitted to the [facility]. He was started on Eliquis for anticoagulation given elevated [id number] score. He has been having episodes of blood in stools. He is status post pacemaker placement. He has peripheral vascular disease that is managed medically. He was recently evaluated by his primary detective private eye Dr. Major Monsalve and a stress test [...] Rate 03/22/2022 76 Atrial Rate 03/22/2022 76 OR Interval 03/22/2022 162 QRS DURATION 03/22/2022 144 QT Interval 03/22/2022 392 QTC CALCULATION(BAZETT) 03/22/2022 441 P [place] 03/22/2022 -14 R-[place] 03/22/2022 -20 T Wave [place] 03/22/2022 -6 Diagnosis 03/22/2022 Value:Normal sinus rhythm Right bundle branch block Abnormal ECG When compared with ECG of (more content not included)... [facility] Progress note 03-23-2024 Note Date & Type Note Facility 03-23-2024 Note [facility] Note [facility] Reason for visit: follow up HPI: Brian Oneal is a 74 y.o. year old with past medical history of SSS s/p PPM and PVD. He presents to cardiology clinic for routine follow up. Patient here for follow up [facility] admission. He was started on Eliquis and metoprolol for new onset afib. He did notice some blood in his stool shortly after starting Eliquis. Says he had some chest tightness yesterday while mowing his yard. Lasted about 30 minutes. Denies SOB, palpitations, and lightheadedness/syncope. ----- Previous HPI per. Dr. Becerra 04/2022: [...] his significant other and works as a [employer] Holter monitor that was placed on 12/06/2021 [...] was initiated by the patient and conducted [id number] with use of audio-only real time telephone [...] monitor that was placed on 12/06/2021 2 (more content not included)... [facility] Progress note 01-31-2024 Note Date & Type Note Facility 01-31-2024 Note [facility] Note [facility] Reason for visit: follow up for [...] was initiated by the patient and conducted [id number] with use of audio-only real time telephone [...] PVCs with bur (more content not included)... [facility] Progress note 08-27-2023 Note Date & Type Note Facility 10-17-2023 Note Patient here for 3 m o follow up SAGAR's. Seeing pain management for his legs he says. Denies chest pain, SOB, and lightheadedness. Not able to tolerate his cpap so it was returned. He is not taking atorvastatin (started by Dr. Quinonez in April) because he said it cost him over $70 for a 30 day supply at [facility]. Lipid profile was done in May 2023. [facility] Progress note 08-27-2023 Note Date & Type Note Facility 08-27-2023 Note [facility] Note [facility] Reason for visit: follow up for [...] was initiated by the patient and conducted icm-tsvh-cg-face with use of audio-only real time telephone [...] since his prost (more content not included)... [facility] Progress note 05-13-2023 Note Date & Type Note Facility 05-13-2023 Note [facility] Cardiology Note [facility] Reason for visit: lower extremity claudication [...] was initiated by the patient and conducted rxe-bigz-qg-face with use of audio-only real time telephone [...] night many times (more content not included)... [facility] Progress note 05-13-2023 Note Date & Type Note Facility 05-13-2023 Note Patient here c/o LE numbness and pain during ambulation and standing. He had EMG and SAGAR's in March 2023. He sees Dr. Chester this afternoon. Recently saw neurosurgery and vascular surgery at [facility]. Dr. Quinonez started him on low dose aspirin and atorvastatin last week, which he states he has not started yet. He denies chest pain, SOB, and syncope. Review of Systems Constitutional: Positive for malaise/fatigue. Cardiovascular: Positive for claudication and leg swelling. Musculoskeletal: Positive for arthritis, back pain, muscle weakness and myalgias. All other systems reviewed and are negative. [facility] Clinical Note 03-23-2022 Note Date & Type [...] by: ALONSO MASON Date: 2022-03-23 12:58 [facility] Summary Purpose Family History No [...] section and content) DATE CREATED AUTHOR 01/29/[address] [facility] DATE CREATED AUTHOR AUTHOR'S ORGANIZ ATION 04/23/2022 [facility] DATE CREATED AUTHOR AUTHOR'S ORGANIZ ATION 01/18/2023 [facility] DATE CREATED AUTHOR AUTHOR'S ORGANIZ ATION 04/05/2024 [facility] DATE CREATED AUTHOR AUTHOR'S ORGANIZ ATION 05/08/2024 [facility] DATE CREATED AUTHOR AUTHOR'S CHERELLE MENDOZA 05/11/2024 [facility] FOR RECORDS PERTAINING TO PATIENTS [...] BE BASED ON THE PRIMARY CLINICAL RECORDS. [employer] provides no warranty or guarantee of the accuracy or completeness of information in this document.
[2024-05-12 17:26] LABS: Basophils Absolute Auto 0.1 10^3/uL (0.0-0.1); Basophils Percent Auto 0.5 % (0.2-2.0); Eosinophils Absolute Auto 0.2 10^3/uL (0.0-0.7); Eosinophils Percent Auto 1.3 % (0.9-7.0); Hematocrit 51.7 % (42.0-54.0); Hemoglobin 16.4 g/dL (14.0-18.0); Immature Granulocytes Abs Auto 0.18 10^3/uL (0.00-0.03); Immature Granulocytes Pct Auto 1.6 % (0.0-0.5); Lymphocytes Absolute Auto 2.6 10^3/uL (1.2-3.8); Lymphocytes Percent Auto 23.3 % (20.5-60.0); Mean Corpuscular HGB Conc 31.7 g/dL (29.9-35.2); Mean Corpuscular Hemoglobin 28.8 pg (25.9-34.0); Mean Corpuscular Volume 90.9 fL (80.0-94.0); Mean Platelet Volume 9.7 fL (9.5-13.5); Monocytes Absolute Auto 0.9 10^3/uL (0.3-0.8); Monocytes Percent Auto 8.4 % (1.7-12.0); Neutrophils Absolute Auto 7.3 10^3/uL (1.4-6.5); Neutrophils Percent Auto 64.9 % (43.0-75.0); Platelet Count 196 10^3/uL (150-450); Red Blood Count 5.69 10^6/uL (4.70-6.10); Red Cell Distribution Width 13.8 % (11.0-15.0); White Blood Count 11.2 10^3/uL (4.0-11.0)
[2024-05-12 17:39] LABS: Anion Gap 13.6; BUN Creatinine Ratio 11.3; Carbon Dioxide 26.7 mmol/L (21.0-32.0); Chloride 102 mmol/L (98-107); Estimated GFR (African America 48 (>=60); Estimated GFR (Non-African Ame 40 (>=60); Glucose 97 mg/dL (74-106); Potassium 4.3 mmol/L (3.5-5.1); Sodium 138 mmol/L (136-145)
== END 2024-05-12 17:01 | disposition home or self-care (01) ==
PROVIDERS: PCP Family Medicine; Visit Provider Internal Medicine Cardiovascular Disease
DX: K92.1 Melena (principal); R94.39 Abnormal result of other cardiovascular function study
CPT/HCPCS: 36415; 80048; 85025

== ENCOUNTER 2024-08-06 13:46 | Outpatient (OUT) | payer MEDICARE, OTHER, SELFPAY | END 2024-08-06 13:47 | disposition home or self-care (01) | LOC: WC 13:46 | PROVIDERS: PCP Family Medicine; Visit Provider Physician Assistant | DX: I87.311 Chronic venous hypertension (idiopathic) with ulcer of right lower extremity (principal); L97.818 Non-pressure chronic ulcer of other part of right lower leg with other specified severity | CPT/HCPCS: A6213; G0463 ==

== ENCOUNTER 2024-09-02 15:45 | Outpatient (OUT) | payer MEDICARE, OTHER, SELFPAY | END 2024-09-02 15:46 | disposition home or self-care (01) | LOC: WC 15:45 | PROVIDERS: PCP Family Medicine; Visit Provider Physician Assistant | DX: I87.311 Chronic venous hypertension (idiopathic) with ulcer of right lower extremity (principal); L97.818 Non-pressure chronic ulcer of other part of right lower leg with other specified severity | CPT/HCPCS: 11043; A6213 ==

== ENCOUNTER 2024-10-13 14:22 | Outpatient (OUT) | payer MEDICARE, OTHER, SELFPAY | END 2024-10-13 14:23 | disposition home or self-care (01) | LOC: WC 14:22 | PROVIDERS: PCP Family Medicine; Visit Provider Physician Assistant | DX: I87.311 Chronic venous hypertension (idiopathic) with ulcer of right lower extremity (principal); L97.818 Non-pressure chronic ulcer of other part of right lower leg with other specified severity | CPT/HCPCS: 11043 ==

== ENCOUNTER 2024-10-28 13:02 | Outpatient (OUT) | payer MEDICARE, OTHER, SELFPAY ==
--- NOTE | 2024-10-28 13:21 | PM.CN ---
Consult Note: HPI Data of Consult Patient: known to practice within the last 3 years Requesting Physician: Gisele Rodriguez NP Primary Care Provider: Jaron Chester MD Consult Narrative Reason for consult: f/u Narrative: Brian Oneal a pleasant 73 year old male presents for evaluation and management of low back pain. 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 Pain today 0/10 increasing to 4/10 with bending twisting and activity. Patient recently underwent bilateral l4-5 l5-s1 facet RFA with >90% improvement in pain and functional ability ongoing. pain well controlled at this time. cc:: CC: Gisele Rodriguez NP Review of Systems ROS Status of ROS 10 or more systems reviewed and unremarkable except as noted in history and below Musculoskeletal Reports: back pain PFSH PFSH Medical History Low back pain ?M54.50 - Low back pain, unspecified (ICD-10) Glaucoma ?H40.9 - Unspecified glaucoma (ICD-10) H/O prostate cancer ?Z85.46 - Personal history of malignant neoplasm of prostate (ICD-10) Numbness and tingling ?R20.0 - Anesthesia of skin (ICD-10) ?R20.2 - Paresthesia of skin (ICD-10) Former smoker ?Z87.891 - Personal history of nicotine dependence (ICD-10) Irregular heart beat ?I49.9 - Cardiac arrhythmia, unspecified (ICD-10) Hypertension ?I10 - Essential (primary) hypertension (ICD-10) Surgical History Pacemaker ?Z95.0 - Presence of cardiac pacemaker (ICD-10) H/O lumbosacral spine surgery ?Z98.890 - Other specified postprocedural states (ICD-10) History of appendectomy ?Z90.49 - Acquired absence of other specified parts of digestive tract (ICD-10) Family History Mother Family history of cancer Family history of hypertension Sister Family history of cancer Family history of myocardial infarction Social History Within the past year, how often did you have a drink containing alcohol: never Within the past year, how often did you have six or more drinks on one occasion: never Score interpretation: A score less than 4 is consistent with normal alcohol consumption. Smoking status: Former smoker Non-prescribed substance use: denies use Previous occupational history: retired Highest level of school completed/degree received: high school graduate Are you now , , , , never or living with a partner: living with partner Little interest or pleasure in doing things: not at all Feeling down, depressed, or hopeless: not at all Feel stressed/tense/nervous/anxious/difficulty sleeping: only a little Meds Home Medications and Allergies Home Medications ?Medication ?Instructions ?Recorded ?Confirmed ?Type gabapentin 100 mg capsule 100 mg PO BID 05/27/23 03/30/24 History tizanidine 4 mg tablet 8 mg PO .HS 05/27/23 03/30/24 History gabapentin 300 mg capsule 300 mg PO .qhs 03/07/24 03/30/24 History apixaban 5 mg tablet (Eliquis) 5 mg PO BID #60 tabs 03/10/24 03/30/24 Rx metoprolol tartrate 50 mg tablet 50 mg PO BID #60 tabs 03/10/24 03/30/24 Rx aspirin 81 mg tablet,delayed mg 03/30/24 History release atorvastatin 40 mg tablet mg 03/30/24 History Allergies Allergy/AdvReac Type Severity Reaction Status Date / Time Z PACK Allergy Uncoded 03/30/24 10:37 Exam Constitutional Documenting provider has reviewed patient's vital signs: yes Common normals: no apparent distress, oriented x3, healthy appearing, alert and well nourished General appearance: cooperative [facility] Common normals: normocephalic, hearing grossly normal bilaterally and moist oral mucous membranes Head and scalp: normocephalic Eye Common normals: PERRL Pupil: PERRL Neck & C-Spine Common normals: full ROM General: normal visual inspection Chest Common normals: inspection of chest normal Respiratory Common normals: normal respiratory effort, no retractions and no use of accessory muscles Back & Pelvis Lumbar spine/lower back: pain with ROM (mild) and straight leg raise negative bilaterally Sacroiliac joints: SI joints normal Extremity Common normals: normal to inspection, full ROM, no calf tenderness and no pedal edema Neuro Common normals: oriented x3, CN's II-XII intact bilaterally, moves all extremities, no focal motor deficits, no sensory deficits noted and deep tendon reflexes 2+ bilaterally Sensorium/orientation: alert Motor exam: strength 5/5 throughout and no movement abnormalities noted Psych Common normals: mental status grossly normal, thought process normal, cooperative, affect normal, speech normal and activity/motor behavior normal Speech: normal speech Thought process: normal thought process Results Additional Findings Additional findings: If on a controlled substance or opioids, I have checked an [place]AR[place] report on this patient and there are no aberrancies noted in the prescribing history.??If on a controlled substance or opioid a drug screen was completed and reviewed within the last year, and if there has not been a drug screen completed we ordered one today to monitor higher risk, state monitored pain medication use. As part of providing excellent, safe, comprehensive care, the following was completed at our patient's visit: 1. A medication reconciliation and review to ensure accurate knowledge of current/active medications, including asking our patients to inform us about any yjpx-zrg-uimbqjz medications or herbal remedies/nutritional supplements/alternative remedies. 2. A review to specifically ensure our patients have had annual screening for screening for depression, screening for tobacco use, and screening for unhealthy alcohol use. For concerning screenings had a discussion with the patient, provided patient education, and recommended follow-up with primary care provider when appropriate. If patient noted with a risk of falling, they received education on strength, gait, and balance training to prevent future risk of falling. Assessment and Plan Assessment and Plan (1) Lumbar spondylosis: Assessment and Plan: The patient has had over 3 months of moderate to severe low back pain with functional impairment and inadequate response to conservative care including NSAIDS (unless there are contraindication such as concurrent blood thinners), multiple oral or topical pain medications, and home exercise program/physical therapy.? Patient has completed >6 weeks of guided home exercise program and/or formal physical therapy program without relief of their symptoms.? I have reviewed the imaging of the lumbar spine and no red flags were identified.? The imaging reveals radiographic findings consistent with lumbar spondylosis We discussed the risks and benefits of the procedure with the patient, and we are NOT planning on using sedation as outlined in the guidelines from Medicare unless there is a documented reason that sedation would be strongly recommended.?? ?The procedure will be completed with fluoroscopic guidance.? (2) Lumbar stenosis with neurogenic claudication: Plan bilateral L4-5 L5-S1 facet medial branch RFA >90% improvement ongoing continue HEP as tolerated continue f/u with oncology and cardiology as planned f/u PRN
== END 2024-10-28 13:03 | disposition home or self-care (01) ==
LOC: PM 13:02
PROVIDERS: PCP Family Medicine; Visit Provider Nurse Practitioner
DX: M47.816 Spondylosis without myelopathy or radiculopathy, lumbar region (principal); M48.062 Spinal stenosis, lumbar region with neurogenic claudication
CPT/HCPCS: G0463

== ENCOUNTER 2024-11-10 07:05 | Outpatient (RCR) | payer MEDICARE, OTHER, SELFPAY ==
--- NOTE | 2024-07-31 10:13 | CR1_ITS ---
The 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
--- NOTE | 2024-08-04 10:28 | CR1_ITS ---
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
--- NOTE | 2024-08-27 07:14 | CR1_ITS ---
The 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
--- NOTE | 2024-10-27 10:08 | CR1_ITS ---
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
== END 2024-11-12 11:54 | disposition home or self-care (01) ==
LOC: CR 07:05
PROVIDERS: PCP Family Medicine; Visit Provider Nurse Practitioner Family
DX: Z95.1 Presence of aortocoronary bypass graft (principal)
CPT/HCPCS: 93798

== ENCOUNTER 2024-11-17 15:24 | Outpatient (OUT) | payer MEDICARE, OTHER, SELFPAY | END 2024-11-17 15:25 | disposition home or self-care (01) | LOC: WC 15:24 | PROVIDERS: PCP Family Medicine; Visit Provider Physician Assistant | DX: I87.311 Chronic venous hypertension (idiopathic) with ulcer of right lower extremity (principal); L97.818 Non-pressure chronic ulcer of other part of right lower leg with other specified severity | CPT/HCPCS: 11042 ==

== ENCOUNTER 2024-11-20 07:09 | Outpatient (RCR) | payer MEDICARE, OTHER, SELFPAY | END 2024-11-20 14:41 | disposition home or self-care (01) | LOC: CR 07:09 | PROVIDERS: PCP Family Medicine; Visit Provider Nurse Practitioner Family | DX: Z95.1 Presence of aortocoronary bypass graft (principal) | CPT/HCPCS: 93798 ==

== ENCOUNTER 2024-11-23 13:00 | Outpatient (RCR) | payer MEDICARE, OTHER, SELFPAY | END 2025-01-07 07:41 | disposition home or self-care (01) | LOC: PT 13:00 | PROVIDERS: PCP Family Medicine; Visit Provider Family Medicine | DX: R53.1 Weakness (principal) | CPT/HCPCS: 97110; 97162 ==

== ENCOUNTER 2024-12-28 10:47 | Outpatient (OUT) | payer MEDICARE, OTHER, SELFPAY ==
--- NOTE | 2024-12-28 10:54 | XR_ITS ---
The [address] [address] Patient Name: MOUSTAPHA MAC MRN: [id number] date: 1950 Sex: M Assigned Patient Location: RAD Current [facility] Accession/Order Number: [id number] Exam Date: 12/28/2024 10:58 Report Date: 12/28/2024 17:50 At the request of: ELLIOT DECKER Procedure: XR chest 2V EXAM: XR chest 2V HISTORY: Acute Bronchitis, Pneumonia COMPARISON: 03/09/2024. FINDINGS: Frontal and lateral views of the chest are obtained. Left pectoral pacing device in place with connected and disconnected leads which represent a change from prior. The cardiomediastinal silhouette is stable in size with interval left atrial appendage clipping. Subtle haziness is noted in the left midlung, not well visualized on the lateral view. No pneumothorax or pleural effusion. Visualized portions of the upper abdomen are unremarkable. There are new postsurgical findings of median sternotomy. Degenerative changes noted in the spine. XR/XR chest 2V IMPRESSION: Hazy opacity in the lateral left mid lung may represent atelectasis or developing airspace disease. Electronically authenticated by: CIERA HAYS Date: 12/28/2024 17:50
== END 2024-12-28 10:48 | disposition home or self-care (01) ==
LOC: RAD 10:49
PROVIDERS: PCP Family Medicine; Visit Provider Family Medicine
DX: J20.9 Acute bronchitis, unspecified (principal); J18.9 Pneumonia, unspecified organism
CPT/HCPCS: 71046

== ENCOUNTER 2025-03-12 09:07 | Outpatient (OUT) | payer MEDICARE, OTHER, SELFPAY ==
[2025-03-12 09:27] LABS: Basophils Percent Auto 0.3 % (0.2-2.0); Eosinophils Absolute Auto 0.3 10^3/uL (0.0-0.7); Eosinophils Percent Auto 3.5 % (0.9-7.0); Hematocrit 47.1 % (42.0-54.0); Hemoglobin 15.3 g/dL (14.0-18.0); Immature Granulocytes Abs Auto 0.08 10^3/uL (0.00-0.03); Immature Granulocytes Pct Auto 1.1 % (0.0-0.5); Lymphocytes Absolute Auto 1.5 10^3/uL (1.2-3.8); Mean Corpuscular HGB Conc 32.5 g/dL (29.9-35.2); Mean Corpuscular Volume 89.2 fL (80.0-94.0); Mean Platelet Volume 9.6 fL (9.5-13.5); Monocytes Absolute Auto 0.6 10^3/uL (0.3-0.8); Monocytes Percent Auto 8.6 % (1.7-12.0); Neutrophils Absolute Auto 4.7 10^3/uL (1.4-6.5); Neutrophils Percent Auto 65.5 % (43.0-75.0); Platelet Count 174 10^3/uL (150-450); Red Blood Count 5.28 10^6/uL (4.70-6.10); Red Cell Distribution Width 13.9 % (11.0-15.0); White Blood Count 7.1 10^3/uL (4.0-11.0)
[2025-03-12 09:52] LABS: Alanine Aminotransferase 13 U/L (16-63); Albumin Globulin Ratio 1.1; Albumin Level 3.3 g/dL (3.4-5.0); Alkaline Phosphatase 41 U/L (46-116); Anion Gap 13.7; Aspartate Amino Transferase 13 U/L (15-37); BUN Creatinine Ratio 18.7; Bilirubin Total 0.7 mg/dL (0.2-1.0); Calcium 8.9 mg/dL (8.5-10.1); Carbon Dioxide 26.8 mmol/L (21.0-32.0); Chloride 103 mmol/L (98-107); Chol HDL Ratio 2.5; Cholesterol 94 mg/dL (<=200); Estimated GFR (African America >60 (>=60 mL/min/1.73m^2); Estimated GFR (Non-African Ame 52 (>=60 mL/min/1.73m^2); Globulin 3.1 g/dL; Glucose 106 mg/dL (74-106); HDL Cholesterol 37 mg/dL (40-60); Potassium 4.5 mmol/L (3.5-5.1); Sodium 139 mmol/L (136-145); Total Protein 6.4 g/dL (6.4-8.2); Triglycerides 94 mg/dL (<=150); VLDL CHOLESTEROL 18.8 mg/dL
== END 2025-03-12 09:08 | disposition home or self-care (01) ==
LOC: LAB 09:11
PROVIDERS: PCP Family Medicine; Visit Provider Nurse Practitioner Family
DX: I25.10 Atherosclerotic heart disease of native coronary artery without angina pectoris (principal)
CPT/HCPCS: 36415; 80053; 80061; 85025

== ENCOUNTER 2025-07-29 13:54 | Emergency (ER) | payer MEDICARE, OTHER, SELFPAY ==
[2025-07-29 14:03] VITALS: BP 140/91; PULSE 74; TEMP 37.1; O2SAT 97; BMI 30.4
[2025-07-29 14:15] VITALS: O2SAT 98
--- OUTSIDE RECORDS SUMMARY | 2025-07-29 14:19 | XMS_ITS | CCD ---
Author Organization [facility] Care Team Providers Care Detective Captain Name Role Phone MODESTO SINGH Admitting Unavailable MODESTO SINGH Attending Unavailable SELF, REFERRED Referring Unavailable ELLIOT DECKER Primary Care Unavailable MODESTO SINGH Consulting Unavailable HOY ., DR ZARATE Primary Care Unavailable MODESTO SINGH Attending Unavailable MODESTO SINGH Admitting Unavailable MASONADELINA PickeringIN Consulting Unavailable GAGANDEEP PAREDES Consulting Unavailable HOY ., DR ZARATE Primary Care Unavailable GAGANDEEP PAREDES Attending Unavailable GAGANDEEP PAREDES Admitting Unavailable HOY ., DR ZARATE Consulting Unavailable HOY ., DR ZARATE Attending Unavailable HOY ., DR ZARATE Admitting Unavailable HOY ., DR ZARATE Primary Care Unavailable JCARLOSECK, DR CLIFTON Moy Consulting Unavailabl e NADERER, DR JEREMIE Lee Consulting Unavailable POLICARO, RAJESH Consulting Unavailable [...] DR ZARATE Admpia Unavailable REINECK, DR CLIFTON Moy Consulting Unavailabl e REINECK, DR CLIFTON Moy Attending Unavailabl e REINECK, DR CLIFTON Moy Admitting Unavailabl e HOY ., DR ZARATE Primary Care Unavailable JIHANEBPIEDAD, DR CIERA Eric Consulting Unavailable GHAZALACHANTONY .MARYAM Consulting Unavailabl e HOY ., DR [...] DR ZARATE Admitting Unavailable Giedraitis , Andrius Vytautclaritza Attending Unavailable Giedraitis , Andrius Vytautclaritza Attending Unavailable Giedraitis , Andrius Vytautclaritza Attending Unavailable Giedraitis , Andrius Vytautas Attending Unavailable Giedraitis , Andrius Vytautas Attending Unavailable Giedraitis , Andrius Vytautas Attending Unavailable Giedraitis , Andrius Vytautas Attending Unavailable Giedraitis , Raulrius Vlulu Attending Unavailable Hoy Elliot MARCUS Primary Care Provider Kina Ernst MD Unavailable [phone] ELLIOTT SANCHEZ Referring Unavailable HOY, ELLIOT M Primary Care Unavailable HOY, ELLIOT M Primary Care Unavailable Jj WINSTON, Abril Moy Unavailable Lisa MARCUS, Fred Unavailable [phone] Jennifer Gonzalez PA-C Unavailable ELENO JIMENEZ Referring Unavailable HOY, ELLIOT M Primary Care Unavailable ELENO JIMENEZ Referring Unavailable HOY, ELLIOT M Primary Care Unavailable ELENO JIMENEZ Referring Unavailable HOMaximino, ELLIOT M Primary Care Unavailable ELENO JIMENEZ Referring Unavailable HOMaximino ELLIOT M Primary Care Unavailable ELLIOTT SANCHEZ Attending Unavailable SOLTESZ, EDWARD G Referring Unavailable HOY, ELLIOT M Primary Care Unavailable Micha Avina Referring Unavailable SANGEETHA EARL Attending Unavailable HOY, ELLIOT M Primary Care Unavailable JEREMIE COYNE Referring Unavailable NOAH HARRISON Attending Unavailable HOY, ELLIOT M Primary Care Unavailable HOY, ELLIOT M Primary Care Unavailable ALMASSI, ELLIOTT Admitting Unavailable ALMASSI, ELLIOTT Attending Unavailable VENNEPUREDDY, FRED Referring Unavailable HOY, ELLIOT M Primary Care Unavailable HOY, ELLIOT M Primary Care Unavailable THAIS, WALID Referring Unavailable SOLJEFFZ, EDWARD G Referring Unavailable KailynMicha Attending Unavailable HOY, ELLIOT M Primary Care Unavailable JEREMIE COYNE Attending Unavailable Kailyn, Micha Referring Unavailable HOY, ELLIOT M Primary Care Unavailable JEREMIE COYNE Referring Unavailable HOY, ELLIOT M Primary Care Unavailable NOAH HARRISON Referring Unavailable HOY, ELLIOT M Primary Care Unavailable VENNEPUREDDY, FRED Referring Unavailable HOY, ELLIOT M Primary Care Unavailable HOY, ELLIOT M Primary Care Unavailable THAISMERLYNID Referring Unavailable SOLKORI, EDWARD G Referring Unavailable HOY, ELLIOT M Primary Care Unavailable SOLKORI, EDWARD G Referring Unavailable HOY, ELLIOT M Primary Care Unavailable TAMIKO MCDUFFIE Attending Unavailable VENNEPUREDDY, FRED Referring Unavailable HOY, ELLIOT M Primary Care Unavailable JEREMIE COYNE Referring Unavailable VENNEPUREDDY, FRED Attending Unavailable HOY, ELLIOT M Primary Care Unavailable HOY, ELLIOT M Primary Care Unavailable THAIS, WALID Referring Unavailable DEVIN WANG Referring Unavailable HOY, ELLIOT M Primary Care Unavailable KINA ERNST Referring Unavailable DAYO, EDWARD G Attending Unavailable DOUG ANTONIO Admitting Unava ilable HOY, ELLIOT M Primary Care Unavailable VENNEPUREDDY, FRED Referring Unavailable VENNEPUREDDY, FRED Attending Unavailable HOY, ELLIOT M Primary Care Unavailable ALMASSI, ELLIOTT Attending Unavailable ALMASSI, ELLIOTT Referring Unavailable HOY, ELLIOT M Primary Care Unavailable SOLTESZ, EDWARD G Referring Unavailable HOY, ELLIOT M Primary Care Unavailable SOLTESZ, EDWARD G Referring Unavailable HOY, ELLIOT M Primary Care Unavailable RIYA LIU Referring Unavailable HOY, ELLIOT M Primary Care Unavailable HOY, ELLIOT M Primary Care Unavailable VENNEPUREDDY, FRED Attending Unavailable HOY, ELLIOT M Primary Care Unavailable LEILA HEREDIA Attending UnavailJEREMIE Gorman Attending Unavailable JEREMIE COYNE Referring Unavailable HOY, ELLIOT M Primary Care Unavailable HOY, ELLIOT M Primary Care Unavailable CHRISTY, NOAH Attending Unavailable CHRISTY, NOAH Referring Unavailable HOY, ELLIOT M Primary Care Unavailable CHRISTY, NOAH Attending Unavailable CHRISTY, NOAH Referring Unavailable VENNEPUREDDY, FRED Attending Unavailable VENNEPUREDDY, FRED Referring Unavailable HOY, ELLIOT M Primary Care Unavailable VENNEPUREDDY, FRED Referring Unavailable HOY, ELLIOT M Primary Care Unavailable HOY, ELLIOT M Primary Care Unavailable DARRELL MUELLER Attending Unavailable PHILLIP, DARRELL Attending Unavailable DARRELL MUELLER Attending Unavailable MODESTO SINGH Referring Unavailable FRANCISCO, MODESTO Referring Unavailable FRANCISCO, MODESTO Referring Unavailable RAISA, JASON Referring Unavailable FRANCISCO, MODESTO Referring Unavailable FRANCISCO, MODESTO Referring Unavailable RAISA, JASON Referring Unavailable RAISA, JASON Referring Unavailable FRANCISCO, MODESTO Referring Unavailable FRANCISCO, MODESTO Referring Unavailable MAJRO HARRISON Attending Unavailable FRANCISCOMODESTO Bacon Referring Unavailable Allergies Allergy Classification Reported Allergen(s) Allergy Type Date of Onset Reaction(s) Facility (4 sources) Azithromycin; Translations: [AZITHROMYCIN] Drug Allergy 2 [facility] Repository (2 sources) Azithromycin Drug Allergy 5 [facility] Repository (1 source) Ciprofloxacin Drug Allergy 3 [facility] Repository (20 sources) Azithromycin Drug Allergy 2 Other: See Comments, GI Upset [facility] Medications Current Medications Medication Drug Class(es) Dates Sig (Normalized) Sig (Original) atorvastatin 40 mg oral tablet (20 sources) HMG-CoA Reductase Inhibitor Start: 08-27-2023 End: 08-26-2024 take 1 tablet by mouth once daily at bedtime atorvastatin (LIPITOR) 40 mg tablet Take 40 mg by mouth daily at bedtime. 08/27/2023 08/26/2024 Active take 10 mg by mouth once daily a torvastatin calcium (ATORVASTATIN ORAL) Take 10 mg by mouth once daily. Active capecitabine 500 mg oral tablet (20 sources) Nucleoside Metabolic Inhibitor Start: 08-27-2024 End: 10-07-2024 take 1 tablet by mouth twice daily capecitabine (XELODA) 150 mg tablet Indications: Rectal cancer (HCC) Take 1 tablet (150 mg) by mouth two times a day Saturday through Saturday ONLY on the days of radiation (Take with 500 mg tablet for Total Dosage 1650 mg) 60 tablet 09/07/2024 3:31 PM EDT 08/27/2024 Active Start: 08-27-2024 End: 10-07-2024 take 3 tablets by mouth twice daily capecitabine (XELODA) 500 mg tablet Indications: Rectal cancer (HCC) Take 3 tablets (1,500 mg) by mouth two times a day Saturday through Saturday ONLY on the days of radiation (Take with 150 mg tablet for Total Dosage 1650 mg) 180 tablet 09/07/2024 3:31 PM EDT 08/27/2024 Active docusate sodium 50 mg / sennosides, longterm 8.6 mg oral tablet (3 sources) Start: 06-26-2024 End: 07-10-2024 take 2 tablets by mouth twice daily senna-docusate (SENNA-S) 8.6-50 mg per tablet Take 2 tablets by mouth two times a day for 14 days. To prevent post op constipation, stop when no longer needed. 06/26/2024 07/10/2024 Active enteric contrast (will be provided with radiology test) (20 sources) Start: 07-30-2024 End: 07-31-2024 enteric contrast (will be provided with radiology test) For CT CHESTABD/PEL W IVCON Routine order Administer, As Directed One Time Only, via Oral, Rectal, both Oral and Rectal, Enteric Tube, Stoma or Indwelling Catheter, Enteric Contrast as designated per enteric contrast guidelines 1 Each 07/30/2024 07/31/2024 Active Start: 07-24-[address] (will be provided with radiology test) Indications: Rectal cancer (HCC) MRI RECTUM WO/W. Administer, As Directed One Time Only, via Oral, Rectal, both Oral and Rectal, Enteric Tube, Stoma or Indwelling Catheter, Enteric Contrast as designated per enteric contrast guidelines 1 Each 07/24/2024 Active 1 ml heparin sodium, porcine 5000 unt/ml injection (20 sources) Unfractionated Heparin, Anti-coagulant Start: 06-26-2024 inject 1 mL by subcutaneous injection every twelve hours heparin 5,000 unit/mL injection Inject 1 mL subcutaneously every 12 hours. For DVT prophylaxis until ambulatory 06/26/2024 Active iv contrast (will be provided with radiology test) (20 sources) Start: 07-30-2024 End: 07-31-2024 iv contrast (will be provided with radiology test) CT Chest ABD/PEL-Inject, intravenously, once for 1 dose.No IV access, insert saline lock prior to the beginning of sedation, infusion, injection of imaging exam. Discontinue saline lock post exam. If Pt. has a central line or IVAD, may access for administration according to line specific nursing protocol. Once exam is complete flush line and de-access according to line specific nursing protocol in the CT contrast administration guidelines link. 1 Each 07/30/2024 07/31/2024 Active Start: 07-24-2024 iv contrast (w ill be provided with radiology test) Indications: Rectal cancer (HCC) MRI Rectum Inject, intravenously, once for 1 dose. No IV access, insert saline lock prior to the beginning of sedation, infusion, injection of imaging exam. Discontinue saline lock post exam. If Pt has a central line or IVAD, may access for administration according to line specific nursing protocol. Once exam is complete flush line and de-access according to line specific nursing protocol in the MR contrast administration guidelines link. 1 Each 07/24/2024 Active metoprolol tartrate 25 mg oral tablet (20 sources) beta-Adrenergic Mikel Start: 06-26-2024 take 1 tablet by mouth every twelve hours metoprolol tartrate, short acting, (LOPRESSOR) 25 mg tablet Take 1 tablet by mouth every 12 hours. 06/26/2024 Active ondansetron 8 mg oral tablet (19 sources) Serotonin-3 Receptor Antagonist Start: 08-28-2024 take 1 tablet by mouth every eight hours as needed ondansetron (ZOFRAN) 8 mg tablet Take 1 tablet by mouth every 8 hours as needed for nausea/vomiting. 90 tablet 2 09/07/2024 3:31 PM EDT 08/28/2024 Active prochlorperazine 10 mg oral tablet (19 sources) Phenothiazine Start: 08-28-2024 take 1 tablet by mouth every six hours as needed prochlorperazine (COMPAZINE) 10 mg tablet Take 1 tablet by mouth every 6 hours as needed. 100 tablet 2 09/07/2024 3:31 PM EDT 08/28/2024 Active sulfamethoxazole 800 mg / trimethoprim 160 mg oral tablet (2 sources) Dihydrofolate Reductase Inhibitor Antibacterial, Sulfonamide Antimicrobial Start: 07-03-2024 End: 07-13-2024 take 1 tablet by mouth twice daily sulfamethoxazole-tri methoprim (BACTRIM DS) 800-160 mg per tablet Take 1 tablet by mouth two times a day for 10 days. 20 tablet 07/03/2024 07/13/2024 Active Completed/Discontinued Medications Medication Drug Class(es) Dates Sig (Normalized) Sig (Original) acetaminophen 500 mg oral tablet (20 sources) End: 09-07-2024 take 2 tablets by mouth every eight hours as needed acetaminophen (TYLENOL EXTRA STRENGTH) 500 mg tablet Take 1,000 mg by mouth every 8 hours as needed. 09/07/2024 Discontinued aspirin 81 mg chewable tablet (20 sources) Platelet Aggregation Inhibitor, Nonsteroidal Anti-inflammatory Drug Start: 06-27-2024 End: 09-07-2024 take 1 tablet by mouth once daily aspirin 81 mg chewable tablet Take 1 tablet by mouth once daily. 06/27/2024 09/07/2024 Discontinued bisacodyl 10 mg rectal suppository (20 sources) Stimulant Laxative Start: 06-26-2024 End: 09-07-2024 bisacodyl (DULCOLAX) 10 mg supp 1 Suppository by RECTAL route once daily as needed for constipation. 06/26/2024 09/07/2024 Discontinued cholecalciferol 0.025 mg oral tablet (20 sources) Vitamin D End: 09-07-2024 take 1 tablet by mouth once daily cholecalciferol (VITAMIN D) 1,000 unit tab tablet Take 1,000 Units by mouth once daily. 09/07/2024 Discontinued doxycycline hyclate 100 mg oral tablet (4 sources) Tetracycline-clas s Drug Start: 07-29-2024 End: 08-08-2024 doxycycline (VIBRA-TABS) 100 mg tablet Take 100 mg by mouth. 07/29/2024 08/08/2024 furosemide 20 mg oral tablet (3 sources) Loop Diuretic Start: 06-27-2024 End: 07-06-2024 take 1 tablet by mouth once daily furosemide (LASIX) 20 mg tablet Take 1 tablet by mouth once daily for 7 days. Patient should start on June 27, 2024. 7 tablet 06/27/2024 07/06/2024 Discontinued (Course of therapy completed) gabapentin 600 mg oral tablet (20 sources) Anti-epileptic Agent Start: 06-26-2024 End: 09-07-2024 take 0.5 tablet by mouth every twelve hours gabapentin (NEURONTIN) 600 mg tablet Take 0.5 tablets by mouth every 12 hours for 30 days. 06/26/2024 09/07/2024 Discontinued lidocaine hydrochloride 0.02 mg/mg topical gel (2 sources) Antiarrhythmic, Amide Local Anesthetic Start: 07-21-2024 End: 07-22-2024 lidocaine urojet 2 % 11 mL topical gel (GLYDO) Start: 07-21-2024 End: 07-22-2024 11 mL, URETHRAL, ONCE (UP TO 30 DAYS AMB), 1 dose, On Sat07/21/24 at 1600, FOR EXTERNAL USE ONLY loratadine 10 mg oral tablet (20 sources) End: 09-07-2024 take 1 tablet by mouth once daily loratadine (CLARITIN) 10 mg tablet Take 10 mg by mouth once daily. 09/07/2024 Discontinued 24 hr mirabegron 25 mg extended release oral tablet (10 sources) beta3-Adrenergic Agonist Start: 08-31-2024 End: 09-07-2024 take 1 tablet by mouth once daily mirabegron (MYRBETRIQ) 25 mg Tb24 Take 1 tablet by mouth once daily. 30 tablet 3 08/31/2024 09/07/2024 Discontinued oxyCODONE hydrochloride 5 mg oral tablet (2 sources) Opioid Agonist Start: 06-26-2024 End: 07-03-2024 take 1 tablet by mouth every six hours as needed for pain oxyCODONE IR (ROXICODONE) 5 mg immediate release tablet Indications: Postoperative pain Take 1 tablet by mouth every 6 hours as needed for pain (severe incision pain) for up to 7 days. 15 tablet 06/26/2024 07/03/2024 pantoprazole 20 mg delayed release oral tablet (20 sources) Proton Pump Inhibitor Start: 06-27-2024 End: 09-07-2024 take 1 tablet by mouth once daily in the morning pantoprazole DR (PROTONIX) 20 mg tablet Take 1 tablet by mouth daily at 6 am for 14 days. 06/27/2024 09/07/2024 Discontinued phenazopyridine hydrochloride 200 mg oral tablet (8 sources) Start: 08-20-2024 End: 09-03-2024 take 1 tablet by mouth every eight hours as needed phenazopyridine (PYRIDIUM) 200 mg tablet Take 1 tablet by mouth three times a day as needed for up to 14 days. For urinary burning and discomfort, will turn urine orange 30 tablet 08/20/2024 09/03/2024 polyethylene glycol 3350 11089 mg powder for oral solution (20 sources) Osmotic Laxative Start: 06-26-2024 End: 09-07-2024 polyethylene glycol 3350 17 gram packet Take 1 Packet by mouth once daily as needed for constipation. Dissolve dose in 4 - 8 ounces of liquid and take as directed. 06/26/2024 09/07/2024 Discontinued potassium chloride 10 meq extended release oral tablet (20 sources) Start: 07-06-2024 End: 09-07-2024 take 1 tablet by mouth once daily potassium chloride (KLOR-CON 10) 10 mEq tablet Take 1 tablet by mouth once daily. Rx called to SNF 10 tablet 07/06/2024 09/07/2024 Discontinued torsemide 20 mg oral tablet (20 sources) Loop Diuretic Start: 07-06-2024 End: 09-07-2024 take 1 tablet by mouth once daily torsemide (DEMADEX) 20 mg tablet Take 1 tablet by mouth once daily. Rx called to SNF 10 tablet 07/06/2024 09/07/2024 Discontinued trospium chloride 20 mg oral tablet (5 sources) Cholinergic Muscarinic Antagonist Start: 08-20-2024 End: 09-03-2024 take 1 tablet by mouth twice daily trospium (SANCTURA) 20 mg tablet Take 1 tablet by mouth two times a day for 14 days. 28 tablet 08/20/2024 08/31/2024 Discontinued Problems Active Problems Problem Classification Problem Date Documented Da te Episodic/Chronic Calculus of urinary tract (1 source) Personal history of urinary calculi; Translations: [PERSONAL HISTORY OF URINARY CALCULI] Onset: 12-20-2022 Episodic Cancer of bladder (20 sources) Malignant neoplasm, overlapping lesion of bladder; Translations: [Malignant neoplasm of overlapping sites of bladder] Onset: 08-31-2024 08-31-2024 Chronic Cancer of prostate (3 sources) Malignant neoplasm of prostate; Translations: [Malignant tumor of prostate] Onset: 12-20-2022 07-22-2024 Chronic Cancer of rectum and anus (20 sources) Malignant tumor of rectum; Translations: [Malignant neoplasm of rectum] Onset: 06-11-2024 06-21-2024 Chronic Cardiac dysrhythmias (20 sources) Chronic atrial fibrillation; Translations: [Chronic atrial fibrillation, unspecified] Onset: 06-12-2024 06-23-2024 Chronic Chronic kidney disease (20 sources) Chronic kidney disease stage 3; Translations: [CKD (chronic kidney disease) stage 3, GFR 30-59 ml/min] Onset: 06-19-2024 06-21-2024 Chronic Chronic kidney disease (2 sources) Chronic kidney disease; Translations: [Stage 3 chronic kidney disease, unspecified whether stage 3a or 3b CKD (HCC)] Onset: 06-21-2024 Conduction disorders (20 sources) Encounter for adjustment and management of automatic implantable cardiac defibrillator; Translations: [Cardiac pacemaker in situ] Onset: 03-23-2022 Chronic Congestive heart failure; nonhypertensive (20 sources) Right ventricular failure; Translations: [Right heart failure, unspecified] Onset: 06-18-2024 Resolved: 06-21-2024 06-19-2024 Chronic Coronary atherosclerosis and other heart disease (20 sources) Coronary arteriosclerosis; Translations: [Atherosclerotic heart disease of [place] coronary artery without angina pectoris] Onset: 06-12-2024 06-22-2024 Chronic Deficiency and other anemia (1 source) Iron deficiency anemia due to blood loss; Translations: [Iron deficiency anemia secondary to blood loss (chronic)] 07-30-2024 Chronic Deficiency and other anemia (1 source) Anemia, unspecified; Translations: [Anemia, unspecified type] Onset: 08-17-2024 Episodic Disorders of lipid metabolism (20 sources) Hyperlipidemia; Translations: [Hyperlipidemia, unspecified] Onset: 06-12-2024 06-21-2024 Chronic Essential hypertension (20 sources) Essential (primary) hypertension; Translations: [Hypertensive disorder] Onset: 12-20-2022 06-21-2024 Chronic Genitourinary symptoms and ill-defined conditions (2 sources) Unspecified abnormal findings in urine; Translations: [Abnormal urine] Onset: 08-17-2024 08-14-2024 Episodic Nutritional deficiencies (1 source) Mild protein-calorie malnutrition; Translations: [MILD PROTEIN-CALORIE MALNUTRITION] Onset: 03-19-2022 Chronic Osteoarthritis (1 source) Unspecified osteoarthritis, unspecified site; Translations: [UNSPECIFIED OSTEOARTHRITIS UNS SITE] Onset: 03-19-2022 Chronic Other aftercare (2 sources) Surgical follow-up; Translations: [Encounter for follow-up examination after completed treatment for conditions other than malignant neoplasm] 07-01-2024 Episodic Other diseases of bladder and urethra (3 sources) Mass of urinary bladder; Translations: [Other specified disorders of bladder] 07-22-2024 Chronic Other diseases of bladder and urethra (2 sources) Other specified disorders of bladder; Translations: [Bladder mass] Onset: 08-17-2024 Chronic Other lower respiratory disease (1 source) [...] INDEX BMI 36.0-36.9 ADULT] Onset: 03-19-2022 Chronic Other nutritional; endocrine; and metabolic disorders (20 sources) Obese class I; Translations: [Obesity, unspecified] Onset: 06-18-2024 06-21-2024 Chronic Other nutritional; endocrine; and metabolic disorders (20 sources) Obese class II; Translations: [Obesity, unspecified] Onset: 06-26-2024 06-26-2024 Chronic Other nutritional; endocrine; and metabolic disorders (20 sources) Body mass index 30+ - obesity; Translations: [Obesity, unspecified] Onset: 08-17-2024 08-17-2024 Chronic Residual codes; unclassified (6 sources) Obstructive sleep apnea (adult) (pediatric); Translations: [OBSTRUCTIVE SLEEP APNEA] Onset: 03-19-2022 Chronic Residual codes; unclassified (20 sources) Obstructive sleep apnea syndrome; Translations: [Obstructive sleep apnea (adult) (pediatric)] Onset: 06-23-2024 06-23-2024 Chronic Residual codes; unclassified (1 source) Personal history of other specified conditions; Translations: [PERSONAL HISTORY OTH SPEC CONDITION] Onset: 12-20-2022 Episodic Respiratory failure; insufficiency; arrest (adult) (20 sources) Ventilator finding; Translations: [Dependence on respirator [ventilator] status] Onset: 06-18-2024 Resolved: 06-19-2024 06-19-2024 Chronic Screening and history of mental health and substance abuse codes (2 sources) Personal history of nicotine dependence; Translations: [Ex-smoker] Onset: 08-17-2024 08-14-2024 Episodic Spondylosis; intervertebral disc disorders; other back [...] [LOW BACK PAIN, UNSPECIFIED] Onset: 12-20-2022 Unclassified (2 sources) Chronic atrial fibrillation, unspecified; Translations: [Atrial fibrillation, chronic (HCC)] Onset: 06-23-2024 Unclassified (1 source) Obesity, Class II, BMI 35-39.9; Translations: [Obesity, Class II, BMI 35-39.9] Onset: 06-26-2024 Unclassified (1 source) NO SHOW 11-25-2024 Viral infection (4 sources) COVID-19; Translations: [COVID-19] Onset: 05-22-2022 Past or Other Problems Problem Classification Problem Date Documented Date Episodic/Chronic Acute bronchitis (4 sources) Acute bronchitis, unspecified; Translations: [ACUTE BRONCHITIS UNSPECIFIED] Onset: 09-10-2022 Episodic Acute posthemorrhagic anemia (20 sources) Acute posthemorrhagic anemia; Translations: [Acute posthemorrhagic anemia] Onset: 06-18-2024 06-21-2024 Episodic Administrative/social admission (20 sources) Patient encounter status; Translations: [Persons encountering health services in other specified circumstances] Onset: 06-22-2024 06-26-2024 Episodic Cancer of prostate (20 sources) Personal history of malignant neoplasm of prostate; Translations: [History of malignant neoplasm of prostate] Onset: 10-15-2022 07-30-2024 Episodic Cardiac dysrhythmias (1 source) Bradycardia, unspecified; Translations: [BRADYCARDIA UNSPECIFIED] Onset: 03-19-2022 Episodic Coagulation and hemorrhagic disorders (20 sources) Thrombocytopenia, unspecified; Translations: [Blood coagulation disorder] Onset: 10-15-2022 Resolved: 06-21-2024 06-21-2024 Chronic Coronary atherosclerosis and other heart disease (3 sources) Presence of aortocoronary bypass graft; 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] Onset: 07-03-2024 Episodic Deficiency and other anemia (20 sources) Anemia; Translations: [Anemia, unspecified] Onset: 08-17-2024 08-17-2024 Episodic Diabetes mellitus without complication (20 sources) Metabolic stress hyperglycemia; Translations: [Hyperglycemia, unspecified] Onset: 06-18-2024 06-21-2024 Episodic Fluid and electrolyte disorders (20 sources) Hyperkalemia; Translations: [Hypervolemia] Onset: 03-19-2022 Resolved: 06-21-2024 06-22-2024 Episodic Immunizations and screening for infectious disease (1 source) Encounter for immunization; Translations: [ENCOUNTER FOR IMMUNIZATION] Onset: 05-23-2022 Episodic Intestinal infection (3 sources) Infectious gastroenteritis and colitis, unspecified; Translations: [Enterocolitis due to Clostridium difficile, not specified as recurrent] Onset: 10-01-2022 Episodic Neoplasms of unspecified nature or uncertain behavior (2 sources) Neoplasm of bladder; Translations: [Neoplasm of unspecified behavior of bladder] Onset: 07-22-2024 07-22-2024 Episodic Nonspecific chest pain (2 sources) Chest pain; Translations: [Chest pain, unspecified] Onset: 07-03-2024 07-01-2024 Episodic Other aftercare (1 source) Other residential (current) drug therapy; Translations: [OTH QUALITY CONTROL TECH RAW MATERIALS CURRENT DRUG THERAPY] Onset: 03-19-2022 Episodic Other aftercare (20 sources) Long-term current use of anticoagulant; 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] Onset: 06-12-2024 06-12-2024 Episodic Other aftercare (1 source) Encounter for follow-up examination after completed treatment for conditions other than malignant neoplasm; Translations: [Surgery follow-up] Onset: 07-03-2024 Episodic Other circulatory disease (20 sources) Low blood pressure; Translations: [Other hypotension] Onset: 06-18-2024 Resolved: 06-21-2024 06-21-2024 Episodic Other nervous system disorders (20 sources) Postoperative pain ; Translations: [Other acute postprocedural pain] Onset: 06-18-2024 06-21-2024 Episodic Other nervous system disorders (1 source) Other acute postprocedural pain; Translations: [Postoperative pain] Onset: 06-21-2024 Episodic Other screening for suspected conditions (not mental disorders or infectious disease) (1 source) Encounter for screening for other disorder; Translations: [Screening for genitourinary condition] Onset: 07-22-2024 Episodic Pleurisy; pneumothorax; pulmonary collapse (20 sources) Atelectasis; Translations: [Atelectasis] Onset: 06-19-2024 06-21-2024 Episodic Pneumonia (except that caused by tuberculosis or sexually transmitted disease) (1 source) Pneumonia, unspecified organism; Translations: [PNEUMONIA UNSPECIFIED ORGANISM] Onset: 03-19-2022 Episodic Respiratory failure; insufficiency; arrest (adult) (1 source) Acute respiratory failure with hypoxia; Translations: [ACUTE RESPIRATORY FAIL W/HYPOXIA] Onset: 03-19-2022 Episodic Skin and subcutaneous tissue infections (2 sources) Cellulitis of right lower limb; Translations: [Cellulitis of right lower limb] Onset: 07-29-2024 Episodic Syncope (3 sources) Syncope and collapse; [...] Value Interpretation Reference Range Facility Orders Onlyon 06-27-2025 Orders Only [id number] Wayne Oneal s A 1950 M Date Provider Department Center 06/27/2025 325-STEPHANIE FLOWERS [facility] C[facility] Family History Problem Relation Age of Onset Coronary artery disease Mother Family Status - Relation Status Age at Mother Father Sister Brother [facility] Orders Onlyon 04-10-2025 Orders Only [id number] Wayne Oneal s A 1950 M Date Provider Department Center 04/10/2025 325-STEPHANIE FLOWERS [facility] Family History Problem Relation Age of Onset Coronary artery disease Mother Family Status - Relation Status Age at Mother Father Sister Brother [facility] Office Visiton 03-11-2025 Follow-up visit [id number] Wayne Oneal s A 1950 M Date Provider Department Center 03/11/2025 DARRELL ELIZABETH [facility] Family History Problem Relation Age of Onset Coronary artery disease Mother Family Status - Relation Status Age at Mother Father Sister Brother Level of Service:67388 NM OFFICE/OUTPATIENT ESTABLISHED MOD MDM 30 MIN Reason for Visit and Comments: Coronary Artery Disease [187] Atrial Fibrillation [80] Normal [facility] CNPNon 12-29-2024 CNPN Normal [facility] Office Visiton 11-20-2024 Follow-up visit [id number] Wayne Oneal 1950 M Date Provider Department Center 11/20/2024 3848-MAJOR HARRISON CARD [facility] Family History Problem Relation Age of Onset Coronary artery disease Mother Family Status - Relation Status Age at Mother Level of Service:63063 NM OFFICE/OUTPATIENT ESTABLISHED LOW MDM 20 MIN Normal [facility] CNPNon 10-01-2024 CNPN Normal [facility] CNPNon 09-22-2024 CNPN Normal [facility] CNOVSPon 09-21-2024 CNOVSP Normal [facility] CNPNon 09-18-2024 CNPN Normal [facility] GLUCOSE, BLOOD (POC)on 09-08 Glucose [Mass/Vol] 104 mg/dL Abnormal 74 - 99 mg/dL [facility] Comment on above: Location:[facility], [address] [place] [address] , [place], [place], [facility] The Accu-Chek Inform II glucose meter has not been approved for testing on patients receiving intensive medical intervention or therapy and results from this point of care glucose test should not be used for patient management decisions in these cases. Inaccurate results may also occur from other interfering factors, such as N-acetylcysteine (blood concentrations of greater than 5mg/dL), galactose, extremes of hematocrit (<10 or >65), or high doses of ascorbic acid (vitamin C) greater than 3mg/dL. Consider alternate testing mechanisms (e.g. core lab, blood gas instrument) in the above situations. Interpretation and review of laboratory results Abnormal [facility] NM PET/CT SKULL-THIGH INITon 09-08-2024 NM PET/CT SKULL-THIGH INIT Normal [facility] CBC W Auto Differential pane l (Bld)on 09-07-2024 Basophils (Bld) [#/Vol] 10*3/uL Normal <0.11 [facility] Comment on above: Order Comment: Speci men Type: BLOOD SPECIMENOrdering Facility: [facility] Address: [address] [place] [address] Performed By: #### 5 7021-8 ####[facility] LABCLIA [id number] [place] [address] Basophils/100 WBC (Bld) 0.3 % Normal [facility] Comment on above: Order Comment: Speci men Type: BLOOD SPECIMENOrdering Facility: [facility] Address: [address] [place] [address] Performed By: #### 5 7021-8 ####[facility] LABCLIA [id number] [place] [address] Differential cell count method Nom (Bld) Auto Normal [facility] Comment on above: Order Comment: Speci men Type: BLOOD SPECIMENOrdering Facility: [facility] Address: [address] [place] [address] Performed By: #### 5 7021-8 ####[facility] LABCLIA [id number] [place] [address] Eosinophils (Bld) [#/Vol] 0.14 10*3/uL Normal <0.46 [facility] Comment on above: Order Comment: Speci men Type: BLOOD SPECIMENOrdering Facility: [facility] Address: [address] [place] [address] Performed By: #### 5 7021-8 ####[facility] LABCLIA [id number] [place] [address] Eosinophils/100 WBC (Bld) 1.8 % Normal [facility] Comment on above: Order Comment: Speci men Type: BLOOD SPECIMENOrdering Facility: [facility] Address: [address] [place] [address] Performed By: #### 5 7021-8 ####[facility] LABCLIA [id number] [place] [address] Erythrocyte distribution width (RBC) [Ratio] 14.7 % Normal 11.5-15.0 [facility] Comment on above: Order Comment: Speci men Type: BLOOD SPECIMENOrdering Facility: [facility] Address: [address] [place] [address] Performed By: #### 5 7021-8 ####[facility] LABCLIA [id number] [place] [address] Hematocrit (Bld) [Volume fraction] 43.6 % Normal 39.0-51.0 [facility] Comment on above: Order Comment: Speci men Type: BLOOD SPECIMENOrdering Facility: [facility] Address: [address] [place] [address] Performed By: #### 5 7021-8 ####[facility] LABCLIA [id number] [place] [address] Hemoglobin (Bld) [Mass/Vol] 13.4 g/dL Normal 13.0-17.0 [facility] Comment on above: Order Comment: Speci men Type: BLOOD SPECIMENOrdering Facility: [facility] Address: [address] [place] [address] Performed By: #### 5 7021-8 ####[facility] LABCLIA [id number] [place] [address] Immature granulocytes (Bld) [#/Vol] 0.06 10*3/uL Normal <0.10 [facility] Comment on above: Order Comment: Speci men Type: BLOOD SPECIMENOrdering Facility: [facility] Address: [address] [place] [address] Performed By: #### 5 7021-8 ####[facility] LABCLIA [id number] [place] [address] Immature granulocytes/100 WBC (Bld) 0.8 % Normal [facility] Comment on above: Order Comment: Speci men Type: BLOOD SPECIMENOrdering Facility: [facility] Address: [address] [place] [address] Performed By: #### 5 7021-8 ####[facility] LABCLIA [id number] [place] [address] Lymphocytes (Bld) [#/Vol] 1.40 10*3/uL Normal 1.00-4.00 [facility] Comment on above: Order Comment: Speci men Type: BLOOD SPECIMENOrdering Facility: [facility] Address: [address] [place] [address] Performed By: #### 5 7021-8 ####[facility] LABCLIA [id number] [place] [address] Lymphocytes/100 WBC (Bld) 17.8 % Normal [facility] Comment on above: Order Comment: Speci men Type: BLOOD SPECIMENOrdering Facility: [facility] Address: [address] [place] [address] Performed By: #### 5 7021-8 ####[facility] LABIA [id number] [place] [address] MCH (RBC) [Entitic mass] 27.3 pg Normal 26.0-34.0 [facility] Comment on above: Order Comment: Speci men Type: BLOOD SPECIMENOrdering Facility: [facility] Address: [address] [place] [address] Performed By: #### 5 7021-8 ####[facility] LABCLIA [id number] [place] [address] MCHC (RBC) [Mass/Vol] 30.7 g/dL Normal 30.5-36.0 [facility] Comment on above: Order Comment: Speci men Type: BLOOD SPECIMENOrdering Facility: [facility] Address: [address] [place] [address] Performed By: #### 5 7021-8 ####[facility] LABIA [id number] [place] [address] MCV (RBC) [Entitic vol] 88.8 fL Normal 80.0-100.0 [facility] Comment on above: Order Comment: Speci men Type: BLOOD SPECIMENOrdering Facility: [facility] Address: [address] [place] [address] Performed By: #### 5 7021-8 ####[facility] LABCLIA [id number] [place] [address] Monocytes (Bld) [#/Vol] 0.67 10*3/uL Normal <0.87 [facility] Comment on above: Order Comment: Speci men Type: BLOOD SPECIMENOrdering Facility: [facility] Address: [address] [place] [address] Performed By: #### 5 7021-8 ####[facility] LABCLIA [id number] [place] [address] Monocytes/100 WBC (Bld) 8.5 % Normal [facility] Comment on above: Order Comment: Speci men Type: BLOOD SPECIMENOrdering Facility: [facility] Address: [address] [place] [address] Performed By: #### 5 7021-8 ####[facility] LABCLIA [id number] [place] [address] Neutrophils (Bld) [#/Vol] 5.58 10*3/uL Normal 1.45-7.50 [facility] Comment on above: Order Comment: Speci men Type: BLOOD SPECIMENOrdering Facility: [facility] Address: [address] [place] [address] Performed By: #### 5 7021-8 ####[facility] LABCLIA [id number] [place] [address] Neutrophils/100 WBC (Bld) 70.8 % Normal [facility] Comment on above: Order Comment: Speci men Type: BLOOD SPECIMENOrdering Facility: [facility] Address: [address] [place] [address] Performed By: #### 5 7021-8 ####[facility] LABCLIA [id number] [place] [address] Nucleated RBC (Bld) [#/Vol] 10*3/uL Normal <0.01 [facility] Comment on above: Order Comment: Speci men Type: BLOOD SPECIMENOrdering Facility: [facility] Address: [address] [place] [address] Performed By: #### 5 7021-8 ####[facility] LABCLIA [id number] [place] [address] Nucleated RBC/100 WBC (Bld) [Ratio] 0.0 /100 WBC Normal [facility] Comment on above: Order Comment: Speci men Type: BLOOD SPECIMENOrdering Facility: [facility] Address: [address] [place] [address] Performed By: #### 5 7021-8 ####[facility] LABCLIA [id number] [place] [address] Platelet mean volume (Bld) [Entitic vol] 9.1 fL Normal 9.0-12.7 [facility] Comment on above: Order Comment: Speci men Type: BLOOD SPECIMENOrdering Facility: [facility] Address: [address] [place] [address] Performed By: #### 5 7021-8 ####[facility] LABIA [id number] [place] [address] Platelets (Bld) [#/Vol] 209 10*3/uL Normal 150-400 [facility] Comment on above: Order Comment: Speci men Type: BLOOD SPECIMENOrdering Facility: [facility] Address: [address] [place] [address] Performed By: #### 5 7021-8 ####[facility] LABIA [id number] [place] [address] RBC (Bld) [#/Vol] 4.91 10*6/uL Normal 4.20-6.00 [facility] Comment on above: Order Comment: Speci men Type: BLOOD SPECIMENOrdering Facility: [facility] Address: [address] [place] [address] Performed By: #### 5 7021-8 ####[facility] LABCLIA [id number] [place] [address] WBC (Bld) [#/Vol] 7.87 10*3/uL Normal 3.70-11.00 [facility] Comment on above: Order Comment: Speci men Type: BLOOD SPECIMENOrdering Facility: [facility] Address: [address] [place] [address] Performed By: #### 5 7021-8 ####[facility] LABCLIA [id number] [place] [address] CNNURSEon 09-07-2024 CNNURSE Normal [facility] CNOVSPon 09-07-2024 CNOVSP Normal [facility] CNPNon 09-07-2024 CNPN Normal [facility] Comprehensive metabolic 2000 panelon 09-07-2024 Albumin [Mass/Vol] 4.0 g/dL Normal 3.9-4.9 [facility] Comment on above: Order Comment: Speci men Type: BLOOD SPECIMENOrdering Facility: [facility] Address: [address] [place] [address] Performed By: #### 2 4323-8 ####[facility] LABCLIA [id number] [place] [address] ALP [Catalytic activity/Vol] 49 U/L Normal 38-113 [facility] Comment on above: Order Comment: Speci men Type: BLOOD SPECIMENOrdering Facility: [facility] Address: [address] [place] [address] Performed By: #### 2 4323-8 ####[facility] LABCLIA [id number] [place] [address] ALT [Catalytic activity/Vol] 8 U/L Low 10-54 [facility] Comment on above: Order Comment: Speci men Type: BLOOD SPECIMENOrdering Facility: [facility] Address: [address] [place] [address] Performed By: #### 2 4323-8 ####[facility] LABCLIA [id number] [place] [address] Anion gap [Moles/Vol] 10 mmol/L Normal 8-15 [facility] Comment on above: Order Comment: Speci men Type: BLOOD SPECIMENOrdering Facility: [facility] Address: [address] [place] [address] Performed By: #### 2 4323-8 ####[facility] LABCLIA [id number] [place] [address] AST [Catalytic activity/Vol] 11 U/L Low 14-40 [facility] Comment on above: Order Comment: Speci men Type: BLOOD SPECIMENOrdering Facility: [facility] Address: [address] [place] [address] Performed By: #### 2 4323-8 ####[facility] LABCLIA [id number] [place] [address] Bilirubin [Mass/Vol] 0.5 mg/dL Normal 0.2-1.3 [facility] Comment on above: Order Comment: Speci men Type: BLOOD SPECIMENOrdering Facility: [facility] Address: [address] [place] [address] Performed By: #### 2 4323-8 ####[facility] LABCLIA [id number] [place] [address] Calcium [Mass/Vol] 9.1 mg/dL Normal 8.5-10.2 [facility] Comment on above: Order Comment: Speci men Type: BLOOD SPECIMENOrdering Facility: [facility] Address: [address] [place] [address] Performed By: #### 2 4323-8 ####[facility] LABCLIA [id number] [place] [address] Chloride [Moles/Vol] 102 mmol/L Normal 98-107 [facility] Comment on above: Order Comment: Speci men Type: BLOOD SPECIMENOrdering Facility: [facility] Address: [address] [place] [address] Performed By: #### 2 4323-8 ####[facility] LABCLIA [id number] [place] [address] CO2 [Moles/Vol] 26 mmol/L Normal 22-30 [facility] Comment on above: Order Comment: Speci men Type: BLOOD SPECIMENOrdering Facility: [facility] Address: [address] [place] [address] Performed By: #### 2 4323-8 ####[facility] LABCLIA [id number] [place] [address] Creatinine [Mass/Vol] 1.35 mg/dL High 0.73-1.22 [facility] Comment on above: Order Comment: Speci men Type: BLOOD SPECIMENOrdering Facility: [facility] Address: [address] [place] [address] Performed By: #### 2 4323-8 ####[facility] LABCLIA [id number] [place] [address] Creatinine and Glomerular filtration rate.predicted panel (S/P/Bld) 54 mL/min/1.73m??? Low >=60 [facility] Comment on above: Order Comment: Speci men Type: BLOOD SPECIMENOrdering Facility: [facility] Address: [address] [place] [address] Result Comment: Annalisa mated Glomerular Filtration Rate (eGFR) is calculated using the 2020 CKD-EPI creatinine equation. This equation utilizes serum creatinine, sex, and age as parameters. The creatinine assay has traceable calibration to isotope dilution-mass spectrometry. Refer to KDIGO guidelines for clinical interpretation. In patients with unstable renal function, e.g. those with acute kidney injury, the eGFR may not accurately reflect actual GFR. Performed By: #### 2 4323-8 ####[facility] LABCLIA [id number] [place] [address] Glucose [Mass/Vol] 96 mg/dL Normal 74-99 [facility] Comment on above: Order Comment: Speci men Type: BLOOD SPECIMENOrdering Facility: [facility] Address: [address] [place] [address] Result Comment: The [place] [employer] (ADA) provides guidance for cutoff values for fasting glucose and random glucose. The ADA defines fasting as no caloric intake for at least 8 hours. Fasting plasma glucose results between 100 to 125 mg/dL indicate increased risk for diabetes (prediabetes).Fasting plasma glucose results greater than or equal to 126 mg/dL meet the criteria for diagnosis of diabetes. In the absence of unequivocal hyperglycemia, results should be confirmed by repeat testing. In a patient with classic symptoms of hyperglycemia or hyperglycemic crisis, random plasma glucose results greater than or equal to 200 mg/dL meet the criteria for diagnosis of diabetes.Reference: Standards of Medical Care in Diabetes 2016, [place] [employer]. Diabetes Care. 2016.39(Suppl 1). Performed By: #### 2 4323-8 ####[facility] LABCLIA [id number] [place] [address] Potassium [Moles/Vol] 5.0 mmol/L Normal 3.7-5.1 [facility] Comment on above: Order Comment: Chandanai men Type: BLOOD SPECIMENOrdering Facility: [facility] Address: [address] [place] [address] Performed By: #### 2 4323-8 ####[facility] LABCLIA [id number] [place] [address] Protein [Mass/Vol] 6.4 g/dL Normal 6.3-8.0 [facility] Comment on above: Order Comment: Speci men Type: BLOOD SPECIMENOrdering Facility: [facility] Address: [address] [place] [address] Performed By: #### 2 4323-8 ####[facility] LABCLIA [id number] [place] [address] Sodium [Moles/Vol] 138 mmol/L Normal 136-144 [facility] Comment on above: Order Comment: Speci men Type: BLOOD SPECIMENOrdering Facility: [facility] Address: [address] [place] [address] Performed By: #### 2 4323-8 ####[facility] LABCLIA [id number] [place] [address] Urea nitrogen [Mass/Vol] 23 mg/dL Normal 9-24 [facility] Comment on above: Order Comment: Speci men Type: BLOOD SPECIMENOrdering Facility: [facility] Address: [address] [place] [address] Performed By: #### 2 4323-8 ####[facility] LABCLIA [id number] [place] [address] CNOVon 09-04-2024 CNOV Normal [facility] CNPNon 09-04-2024 CNPN Normal [facility] CNCNPATEDon 09-03-2024 CNCNPATED Normal [facility] CNPNon 08-31-2024 CNPN Normal [facility] CNPNon 08-28-2024 CNPN Normal [facility] CNOVSPon 08-27-2024 CNOVSP Normal [facility] CNPNon 08-27-2024 CNPN Normal [facility] CNPNon 08-26-2024 CNPN Normal [facility] CNPNon 08-25-2024 CNPN Normal [facility] ANES POSTPROC EVALon 024 ANES POSTPROC EVAL Normal [facility] ANES PRE-OPon 08-20-2024 ANES PRE-OP [facility] OPERATIVE NOon 08-20-2024 OPERATIVE NO Normal [facility] SURGICAL PATHOLOGYon 024 CASE REPORT Normal [facility] Comment on above: Order Comment: Speci men Type: TISSUE SPECIMENOrdering Facility: [facility] Address: [address] [place] [address] Result Comment: Surg ica Pathology Report Case: [id number] Provider: Elliott Sanchez MD Collected: 08/20/2024 08:24 AMOrdering Location: Admitting Received: 08/20/2024 11:44 AMPathologist: Mayte Stacy ELEAZARpecimens: A) - Colon, Ascending Polyp, ascending polyp x3 B) - Colon, Hepatic Flexure, Polyp, hepatic flexure x4 C) - Colon, Transverse, Biopsy, transverse colon lesion biopsy D) - Colon, Transverse, Polyp, transverse colon polyp x2 E) - Colon, Descending, Polyp, colon,descending x2 F) - Colon, Descending, Polyp, desending colon # 3 G) - Colon, Sigmoid, Polyp, sigmoid colon x3 H) - Rectum, Polyp, rectum polp x1 I) - Bladder, Transurethral Resection, bladder dome tumor J) - Bladder, Transurethral Resection, posterior wall tumor Performed By: #### S ####[facility] [id number] [place] [address] [place] CLINICAL HISTORY Normal [facility] Comment on above: Order Comment: Speci men Type: TISSUE SPECIMENOrdering Facility: [facility] Address: [address] [place] [address] Result Comment: Pre- op diagnosis:Rectal cancer (HCC) [C20]Bladder mass [N32.89] Performed By: #### S ####[facility] [id number] [place] [address] [place] DIAGNOSIS COMMENT Normal [facility] Comment on above: Order Comment: Speci men Type: TISSUE SPECIMENOrdering Facility: [facility] Address: [address] [place] [address] Result Comment: Immu nohistochemical stains were performed (I and J) and show the tumor in both specimens are positive for GATA3 and p63, while negative for ERG, supporting urothelial origin. In addition, the invasive urothelial carcinoma component (in both specimens) demonstrates lymphoepithelioma-like morphology.Parts A through H were reviewed by Dr. Ramiro Gaines (Gastrointestinal Pathology).Laboratory Developed Test (LDT) Disclaimer:Performance characteristics of immunohistochemical, immunofluorescent and chromogenic in-situ hybridization tests have been determined by the performing laboratory within [facility]???s [facility] Medicine Department ([facility], [facility], [facility], [facility], [facility], [facility], or [facility]) in a manner consistent with CLIA requirements. One or more of these tests have not been cleared or approved by the FDA. [facility] is regulated under CLIA as qualified to perform high-complexity testing. These tests are used for clinical purposes. They should not be regarded as investigational or for research. Positive and negative controls stain appropriately. Performed By: #### S ####[facility] LABCLIA [id number] [address] FINAL DIAGNOSIS Normal [facility] Comment on above: Order Comment: Speci men Type: TISSUE SPECIMENOrdering Facility: [facility] Address: [address] [place] [address] Result Comment: A. A scending colon, polypectomy:- Fragments of tubular adenoma.B. Hepatic flexure, polypectomy:- Fragments of tubular adenoma.C. Transverse colon, biopsy:- Focally active colitis; no granulomas or dysplasia.D. Transverse colon, polypectomy:- Tubular adenoma.E. Descending colon, polypectomy:- Colonic mucosa with mild architectural distortion.F. Descending colon, polypectomy:- Fragments of tubular adenoma.- Fragments of hyperplastic polyp.G. Sigmoid colon, polypectomy:- Fragments of tubular adenoma.H. Rectum, polypectomy:- Hyperplastic polyp.I. Urinary bladder, dome, transurethral resection:- High-grade urothelial carcinoma, widely invasive of lamina propria (see comment).- No muscularis propria identified.J. Urinary bladder, posterior wall, transurethral resection:- High-grade papillary urothelial carcinoma, invasive of lamina propria (see comment).- Muscularis propria is present and uninvolved by tumor. Performed By: #### S ####[facility] LABCLIA [id number] [address] OF [facility] FINAL PERFORMING LAB Normal [facility] Comment on above: Order Comment: Speci men Type: TISSUE SPECIMENOrdering Facility: [facility] Address: [address] [place] [address] Result Comment: Diag nostic interpretation performed at [facility], [facility] [place] [address] CLIA# [id number] Director: Jeffrey Tolentino M.D. Performed By: #### S ####[facility] LABCLIA [id number] [facility] [place] [address] [place] GROSS DESCRIPTION [facility] Comment on above: Order Comment: Speci men Type: TISSUE SPECIMENOrdering Facility: [facility] Address: [address] [place] [address] Result Comment: A. C olon, Ascending PolypReceived in formalin are multiple pieces of aguirre, soft tissue aggregating to 1.6 x 0.4 x 0.2 cm. Totally submitted in two cassettes.B. Colon, Hepatic Flexure, PolypReceived in formalin are multiple pieces of aguirre, soft tissue aggregating to 2.0 x 1.7 x 0.2 cm. Totally submitted in nine cassettes.C. Colon, Transverse, BiopsyReceived in formalin are two pieces of aguirre, soft tissue aggregating to 0.6 x 0.3 x 0.2 cm. Totally submitted in one cassette.D. Colon, Transverse, PolypReceived in formalin are multiple pieces of aguirre, soft tissue aggregating to 1.2 x 0.2 x 0.2 cm. Totally submitted in one cassette.E. Colon, Descending, PolypReceived in formalin are two pieces of aguirre, soft tissue aggregating to 0.7 x 0.2 x 0.2 cm. Totally submitted in one cassette.F. Colon, Descending, PolypReceived in formalin are multiple segments of aguirre, polypoid tissue ranging in size from 2.1 x 1.7 x 0.3 cm to 0.1 x 0.1 x 0.1 cm. No stalks are present. The line of resection is present. The larger specimen is bisected. The remaining specimen are not sectioned. Totally submitted in four cassettes.G. Colon, Sigmoid, PolypReceived in formalin are two pieces of aguirre, soft tissue aggregating to 0.7 x 0.3 x 0.2 cm. Totally submitted in one cassette.H. Rectum, PolypReceived in formalin is a segment of aguirre-red, polypoid tissue measuring 0.8 x 0.5 x 0.2 cm. No stalks are present. The line of resection is present. The specimen is not sectioned. Totally submitted in one cassette.I. Bladder, Transurethral ResectionReceived in formalin on Telfa gauze are multiple pieces of aguirre-brown to red, soft and rubbery tissue aggregating to 2.7 x 0.6 x 0.3 cm. Totally submitted in one cassette.J. Bladder, Transurethral ResectionReceived in formalin on Telfa gauze are multiple pieces of aguirre-brown to red, soft and rubbery tissue aggregating to 2.1 x 0.4 x 0.3 cm. Totally submitted in one cassette.Gross examination performed at [facility], [address] [place] [address] August 20, 2024 1:37 PM Performed By: #### S ####[facility] LABCLIA [id number] [place] [address] [place] CNOVon 08-18-2024 CNOV Normal [facility] CNPTOUTREACHon 08-18-2024 CNPTOUTREACH Normal [facility] POTASSIUMon 08-18-2024 Potassium [Moles/Vol] 5.2 mmol/L High 3.7-5.1 [facility] Comment on above: Order Comment: Speci men Type: BLOOD SPECIMENOrdering Facility: [facility] Address: [address] [place] [address] Performed By: #### K 1 ####[facility] LABCLIA [id number] [place] [address] [place] Bacteria Ur Culton Bacteria identified Cx Nom (U) ORGANISM ID: 1 <10,000 CFU/ml Normal urogenital bola Normal [facility] Comment on above: Performed By: #### 6 30-4 #### [facility] LAB CLIA [id number] [address] [place] [address] [place] Basic metabolic 2000 panelon 08-17-2024 Anion gap [Moles/Vol] 12 mmol/L Normal 8-15 [facility] Comment on above: Order Comment: Speci men Type: BLOOD SPECIMEN Ordering Facility: [facility] Address: [address] [place] [address] Performed By: #### 2 4321-2 #### [facility] CLIA [id number] [address] [place] [address] [place] Calcium [Mass/Vol] 9.6 mg/dL Normal 8.5-10.2 [facility] Comment on above: Order Comment: Speci men Type: BLOOD SPECIMEN Ordering Facility: [facility] Address: [address] [place] [address] Performed By: #### 2 4321-2 #### [facility] CLIA [id number] [address] [place] [address] [place] Chloride [Moles/Vol] 102 mmol/L Normal 98-107 [facility] Comment on above: Order Comment: Speci men Type: BLOOD SPECIMEN Ordering Facility: [facility] Address: [address] [place] [address] Performed By: #### 2 4321-2 #### [facility] CLIA [id number] [address] [place] [address] [place] CO2 [Moles/Vol] 25 mmol/L Normal 22-30 [facility] Comment on above: Order Comment: Speci men Type: BLOOD SPECIMEN Ordering Facility: [facility] Address: [address] [place] [address] Performed By: #### 2 4321-2 #### [facility] CLIA [id number] [address] [place] [address] [place] Creatinine [Mass/Vol] 1.46 mg/dL High 0.73-1.22 [facility] Comment on above: Order Comment: Speci men Type: BLOOD SPECIMEN Ordering Facility: [facility] Address: [address] [place] [address] Performed By: #### 2 4321-2 #### [facility] CLIA [id number] [address] [place] [address] [place] Creatinine and Glomerular filtration rate.predicted panel (S/P/Bld) 50 mL/min/1.73m??? Low >=60 [facility] Comment on above: Order Comment: Bobby villalpando Type: BLOOD SPECIMEN Ordering Facility: [facility] Address: [address] [place] [address] Result Comment: Annalisa mated Glomerular Filtration Rate (eGFR) is calculated using the 2020 CKD-EPI creatinine equation. This equation utilizes serum creatinine, sex, and age as parameters. The creatinine assay has traceable calibration to isotope dilution-mass spectrometry. Refer to KDIGO guidelines for clinical interpretation. In patients with unstable renal function, e.g. those with acute kidney injury, the eGFR may not accurately reflect actual GFR. Performed By: #### 2 4321-2 #### [facility] CLIA [id number] [address] [place] [address] [place] Glucose [Mass/Vol] 103 mg/dL High 74-99 [facility] Comment on above: Order Comment: Bobby villalpando Type: BLOOD SPECIMEN Ordering Facility: [facility] Address: [address] [place] [address] Result Comment: The [place] Diabetes Association (ADA) provides guidance for cutoff values for fasting glucose and random glucose. The ADA defines fasting as no caloric intake for at least 8 hours. Fasting plasma glucose results between 100 to 125 mg/dL indicate increased risk for diabetes (prediabetes). Fasting plasma glucose results greater than or equal to 126 mg/dL meet the criteria for diagnosis of diabetes. In the absence of unequivocal hyperglycemia, results should be confirmed by repeat testing. In a patient with classic symptoms of hyperglycemia or hyperglycemic crisis, random plasma glucose results greater than or equal to 200 mg/dL meet the criteria for diagnosis of diabetes. Reference: Standards of Medical Care in Diabetes 2016, [place] [employer]. Diabetes Care. 2016.39(Suppl 1). Performed By: #### 2 4321-2 #### [facility] CLIA [id number] [address] [place] [address] [place] Potassium [Moles/Vol] 5.3 mmol/L High 3.7-5.1 [facility] Comment on above: Order Comment: Speci men Type: BLOOD SPECIMEN Ordering Facility: [facility] Address: [address] [place] [address] Performed By: #### 2 4321-2 #### [facility] [place] [id number] [place] Sodium [Moles/Vol] 139 mmol/L Normal 136-144 [facility] Comment on above: Order Comment: Speci men Type: BLOOD SPECIMEN Ordering Facility: [facility] Address: [address] [place] [address] Performed By: #### 2 4321-2 #### [facility] IA [id number] [address] [place] [address] [place] Urea nitrogen [Mass/Vol] 18 mg/dL Normal 9-24 [facility] Comment on above: Order Comment: Speci men Type: BLOOD SPECIMEN Ordering Facility: [facility] Address: [address] [place] [address] Performed By: #### 2 4321-2 #### [facility] [place] [id number] [address] [place] CBC panel Auto (Bld)on 08-17 Erythrocyte distribution width (RBC) [Ratio] 14.4 % Normal 11.5-15.0 [facility] Comment on above: Order Comment: Speci men Type: BLOOD SPECIMEN Ordering Facility: [facility] Address: [address] [place] [address] Performed By: #### 5 8410-2 #### [facility] [place] [id number] [address] [place] Hematocrit (Bld) [Volume fraction] 44.3 % Normal 39.0-51.0 [facility] Comment on above: Order Comment: Speci men Type: BLOOD SPECIMEN Ordering Facility: [facility] Address: [address] [place] [address] Performed By: #### 5 8410-2 #### [facility] IA [id number] [address] [place] [id number] [place] Hemoglobin (Bld) [Mass/Vol] 13.5 g/dL Normal 13.0-17.0 [facility] Comment on above: Order Comment: Speci men Type: BLOOD SPECIMEN Ordering Facility: [facility] Address: [address] [place] [address] Performed By: #### 5 8410-2 #### [facility] CLIA [id number] [place] MCH (RBC) [Entitic mass] 27.8 pg Normal 26.0-34.0 [facility] Comment on above: Order Comment: Speci men Type: BLOOD SPECIMEN Ordering Facility: [facility] Address: [address] [place] [address] Performed By: #### 5 8410-2 #### [facility] IA [id number] [address] [place] MCHC (RBC) [Mass/Vol] 30.5 g/dL Normal 30.5-36.0 [facility] Comment on above: Order Comment: Speci men Type: BLOOD SPECIMEN Ordering Facility: [facility] Address: [address] [place] [address] Performed By: #### 5 8410-2 #### [facility] IA [id number] [address] [place] MCV (RBC) [Entitic vol] 91.2 fL Normal 80.0-100.0 [facility] Comment on above: Order Comment: Speci men Type: BLOOD SPECIMEN Ordering Facility: [facility] Address: [address] [place] [address] Performed By: #### 5 8410-2 #### [facility] IA [id number] [address] [place] Nucleated RBC (Bld) [#/Vol] 10*3/uL Normal <0.01 [facility] Comment on above: Order Comment: Speci men Type: BLOOD SPECIMEN Ordering Facility: [facility] Address: [address] [place] [address] Performed By: #### 5 8410-2 #### [facility] IA [id number] [address] [place] [address] [place] Platelet mean volume (Bld) [Entitic vol] 10.1 fL Normal 9.0-12.7 [facility] Comment on above: Order Comment: Speci men Type: BLOOD SPECIMEN Ordering Facility: [facility] Address: [address] [place] [address] Performed By: #### 5 8410-2 #### [facility] IA [id number] [address] [place] [address] [place] Platelets (Bld) [#/Vol] 252 10*3/uL Normal 150-400 [facility] Comment on above: Order Comment: Speci men Type: BLOOD SPECIMEN Ordering Facility: [facility] Address: [address] [place] [address] Performed By: #### 5 8410-2 #### [facility] IA [id number] [address] [place] [address] [place] RBC (Bld) [#/Vol] 4.86 10*6/uL Normal 4.20-6.00 [facility] Comment on above: Order Comment: Speci men Type: BLOOD SPECIMEN Ordering Facility: [facility] Address: [address] [place] [address] Performed By: #### 5 8410-2 #### [facility] IA [id number] [address] [place] [address] [place] WBC (Bld) [#/Vol] 8.98 10*3/uL Normal 3.70-11.00 [facility] Comment on above: Order Comment: Speci men Type: BLOOD SPECIMEN [facility]ing Facility: [facility] Address: [address] [place] [address] Performed By: #### 5 8410-2 #### [facility] IA [id number] [address] [place] [address] [facility] [place] CNPGaby 08-17-2024 CNPN Telephone ([facility]) BRIAN ONEAL ([id number]) 1950 M Date Time Provider Department 08/17/24 RIYA LIU During your visit today, we recorded the following information about you: Riya Liu PA-C 08/17/2024 1:[address] Wilder, This is in regards to our mutual patient, Mr. Brian Oneal 74 year old who was seen at my office on 08/17/2024 . The patient is scheduled for RESECTION BLADDER TUMOR TRANSURETHRAL COLONOSCOPY WITH BIOPSY with Dr Elliott Sanchez on 08/20/2024. Is patient OK to hold ASA Preparations for 7 days prior to procedure or should patient remain on this martha-operatively? Is the patient medically optimized for surgery and ok to proceed? Thank you. Sincerely, Riya Liu PA-C [facility] Riya Liu PA-C 08/18/2024 10:42 AM Signed Tamiko Mcduffie APRN.BDR You; Masood Wilder MD; Rena Murphy RN15 hours ago (7:08 PM) [place], We are the cardiac surgery team. This pt was to have a cardiology appt for clearance for his upcoming surgery, I believe he saw a local district leader outside of the [facility] who can give you further guidance on clearance and ASA . Thanks Sandra Mcduffie NP CTS Thank you. Reviewed Care Everywhere and found appointment with cardiology, Darrell Mueller NP on 08/11/24. Will fax letter for optimization and ASA recs. Riya Liu PA-C August 18, 2024 10:42 AM Riya Liu PA-C 08/19/2024 7:48 AM Signed Good morning Dr. Sanchez, Patient scheduled for RESECTION BLADDER TUMOR TRANSURETHRAL COLONOSCOPY WITH BIOPSY with you tomorrow (08/20/24). I just wanted to inform you that I am still waiting to hear back from outside cardiology office on his optimization for surgery tomorrow. He has been taking his ASA martha-operatively due to his cardiac history. Assuming we get cardiac optimization today, are you still OK proceeding with surgery tomorrow with patient not holding his ASA? Thank you. Riya Liu PA-C [facility] Riya Liu PA-C 08/19/2024 9:[address] Sanchez, patient OK to stay on ASA martha-operatively. Still working on getting optimization from cardiology office. Letter re-faxed. ALEX Pos[facility] Riya Liu PA-C 08/19/2024 9:54 AM Signed Received letter from cardiology, patient OK to proceed from cardiac standpoint. Scanning letter into chart. Riya Liu PA-C August 19, 2024 9:54 AM Allergies As of Date: 08/17/2024 Noted Allergy Reaction AZITHROMYCIN 08/16/2022 14 - Other: See Comments 8 - GI Upset Comments: Pt states he started having bloody stools after taking azithromycin Date Reviewed: 08/17/2024 Reviewed by: Riya Liu PA-C - Fully Assessed Reason for Visit: Pre-Op Visit [1235] Prescriptions as of 08/19/2024 - iv contrast (will be provided with radiology test) MRI Rectum Inject, intravenously, once for 1 dose. No IV access, insert saline lock prior to the beginning of sedation, infusion, injection of imaging exam. Discontinue saline lock post exam. If Pt has a central line or IVAD, may access for administration according to line specific nursing protocol. Once exam is complete flush line and de-access according to line specific nursing protocol in the MR contrast administration guidelines link. - enteric contrast (will be provided with radiology test) MRI RECTUM WO/W. Administer, As Directed One Time Only, via Oral, Rectal, both Oral and Rectal, Enteric Tube, Stoma or Indwelling Catheter,? Enteric Contrast as designated per enteric contrast guidelines - torsemide (DEMADEX) 20 mg tablet Take 1 tablet by mouth once daily. Rx called to SNF - potassium chloride (KLOR-CON 10) 10 mEq tablet Take 1 tablet by mouth once daily. Rx called to SNF - cholecalciferol (VITAMIN D) 1,000 unit tab tablet Take 1,000 Units by mouth once daily. - loratadine (CLARITIN) 10 mg tablet Take 10 mg by mouth once daily. - acetaminophen (TYLENOL EXTRA STRENGTH) 500 mg tablet Take 1,000 mg by mouth every 8 hours as needed. - metoprolol tartrate, short acting, (LOPRESSOR) 25 mg tablet Take 1 tablet by mouth every 12 hours. - aspirin 81 mg chewable tablet Take 1 tablet by mouth once daily. - bisacodyl (DULCOLAX) 10 mg supp 1 Suppository by RECTAL route once daily as needed for constipation. - heparin 5,000 unit/mL injection Inject 1 mL subcutaneously every 12 hours. For DVT prophylaxis until ambulatory - pantoprazole DR (PROTONIX) 20 mg tablet Take 1 tablet by mouth daily at 6 am for 14 days. - polyethylene glycol 3350 17 gram packet Take 1 Packet by mouth once daily as needed for constipation. Dissolve dose in 4 - 8 ounces of liquid and take as directed. - gabapentin (NEURONTIN) 600 mg tablet Take 0.5 tablets by mouth every 12 hours for 30 days. - atorvastatin (LIPITOR) 40 mg tablet Take 40 mg by mo (more content not included)... Normal [facility] HISTORY PHYSICALon HISTORY PHYSICAL HNO ID: [id number] Author: RIYA LIU PA-C Service: ? Author Type: Physician Small Animal Veterinarian Type: H&P Filed: 08/19/2024 09:57 Note Text: [facility] HISTORY AND PHYSICAL EXAMINATION SERVICE DATE: 08/17/2024 SERVICE TIME: 12:27 PM PRIMARY CARE PHYSICIAN: Elliot Decker MD REASON FOR VISIT: Brian Oneal is a 74 year old male who is scheduled for RESECTION BLADDER TUMOR TRANSURETHRAL COLONOSCOPY WITH BIOPSY at the request of Dr. Elliott Sanchez for consultation. My final recommendation will be communicated back to the requesting physician by way of shared medical record or letter. Assessment 1. Pre-op evaluation Surgery scheduled on 08/20/2024. 2. Primary hypertension BP 138/72. Taking metoprolol (Toprol) and torsemide. Denies any CP, dizziness, double vision, or FRANCO. Cardiology following, stable Last 14 BP Last 14 Encounter BP Readings: Date: BP: 08/17/2024 138/72 07/30/2024 123/76 07/30/2024 123/76 07/22/2024 150/79 07/22/2024 150/79 07/03/2024 136/70 06/09/2024 129/59 3. Mixed hyperlipidemia Taking atorvastatin (Lipitor). 4. Coronary artery disease involving [place] coronary artery of [place] heart without angina pectoris Left heart cath 05/2024. No cardiac stents. S/p CABGx3 on 06/18/[address] Masood Wilder. Taking ASA. Patient gets some mild FRANCO when bending over to tie his shoes, but he is doing cardiac rehab twice a week without symptoms. He occasionally gets some sternal pain due to recent surgery/incision. Will get ASA recs and optimization from cardiology. 08/18/24: Cardiac surgery team deferring optimization or ASA recs to cardiology that patient saw outside [facility]. Reviewed CE and found cardiology appointment on 08/11/24 with Darrell Mueller NP. Letter faxed. 08/19/24: Still waiting on cardiac optimization, but TE sent to surgeon to make him aware patient has been taking his ASA martha-operatively. 08/19/24: See TE, per surgeon, patient OK to remain in his ASA martha-operatively. Letter re-faxed to cardiology for just optimization. 08/19/24: Received letter from cardiology and patient OK to proceed with surgery from cardiac standpoint. Scanning letter into chart. 5. Atrial fibrillation, chronic (HCC) S/p MAZE and RUSS clip on 06/18/24. Follows with cardiology, last seen by Tamiko Mcduffie CNP on 07/03/24. No longer in Afib and no longer on Eliquis. RRR and pulse 69 today on exam. Stable. 08/18/24: Follows with cardiology outside [facility], last seen by Darrell Mueller NP on 08/11/24. 6. RVF (right ventricular failure) (HCC) 7. Pacemaker Pacemaker placed in 2021. Right atrial pacer lead replaced on 06/18/24. Last device check 06/22/24. Cardiology following, stable. Type of device: Biotronik Solia S Last interrogation: 06/22/24 Pacemaker dependency: A pacing 100%, RV pacing 86%- yes Surgical site: bladder/colon Location of CIED generator in body: left chest Device rep needed: yes Battery: 80% 8. Former smoker 1 ppd x 55 years, quit 2021 9. TEJ (obstructive sleep apnea) Non-compliant with CPAP, cannot tolerate 10. Stage 3 chronic kidney disease, unspecified whether stage 3a or 3b CKD (HCC) CMP from 07/30/24 demonstrates BUN 18, Cr 1.29, and GFR 57. Will get updated CMP today. PCP following. 11. Rectal cancer (HCC) Has been having some rectal bleeding, minimal. Incidental finding of rectal mass in May 2024 during colonoscopy in [place]. No previous treatments have been done. See HPI, having above surgery. 12. History of prostate cancer S/p radiation and brachytherapy in 2009. 13. Obesity, BMI 30-39.9 Body mass index is 34.3 kg/m?. 14. Anemia, unspecified type CBC from 07/30/24 demonstrated H/H of 11.8/37.6. No current oral supplements. Asymptomatic. Will get CBC updated today. Addendum 08/18/24: 16. Hyperkalemia BMP from yesterday demonstrates Potassium of 5.3. Patient is no longer taking a potassium supplement. Advised to avoid high potassium foods and repeat K today. Patient agreeable. 08/19/24: Potassium improved to 5.2. Acceptable to proceed with surgery. Parker Activity Status Index: METS: Walk indoors, such as around the house (1.75 METs) Do light work around the house, such as dusting or washing dishes (2.70 METs) Take care of self; that is eating, dressing, bathing, using the toilet (2.75 METs) Walk a block or two on level ground (2.75 METs) Do moderate work around the house, such as vacuuming, sweeping floors, or carrying in groceries (3.50 METs) Climb a flight of stairs or walk up a hill (5.50 METs) DASI Score: 18.95 (Cardiac rehab 2x a week- stationary bike and leg exercises) Patient denies any chest pain or undue shortness of breath with the above physical activity. Clinical Frailty Scale: 3. Well, with treated comorbid disease STOP-Bang Score: Snores loudly Has or is being treated for high blood pressure Patient over 50 years old Male patient (more content not included)... Normal [facility] PT panel Coag (PPP)on 2023 INR Coag (PPP) [Relative time] 1.0 {INR} Normal 0.9-1.3 [facility] Comment on above: Order Comment: Bobby villalpando Type: BLOOD SPECIMEN [facility] [facility] Address: [address] [place] [address] Result Comment: Rizwana min K Antagonist (VKA) Therapeutic Range: INR 2 to 3 (Target INR of 2.5) Note: For patients treated with VKA drugs, such as warfarin, the [employer] [employer] 2012 Guideline recommends a therapeutic INR range of 2 to 3 (target INR of 2.5). This recommendation includes high-risk patients with antiphospholipid syndrome with previous arterial or venous thromboembolism, current-generation mechanical or bioprosthetic aortic heart valve replacement. Note: Patients with mechanical aortic valve replacement and additional risk factors for thromboembolic events (atrial fibrillation, previous thromboembolism, LV dysfunction, hypercoagulable conditions) or an older generation mechanical AVR (i.e., ball in-Cage) or any mechanical MVR should have a INR therapeutic range of 2.5 to 3.5 (target INR of 3). Es GH, et al. Chest 2012, 141:7S-47S James RA, et al. JACC 2017, 70: 252-289 Performed By: #### 3 4528-0, 86737-3 #### [facility] CLIA [id number] [facility] [place] [address] [place] PT Coag (PPP) [Time] 10.9 s Normal 9.7-13.0 [facility] Comment on above: Order Comment: Bobby villalpando Type: BLOOD SPECIMEN Ordering Facility: [facility] Address: [address] [place] [address] Performed By: #### 3 4528-0, 74637-4 #### [facility] CLIA [id number] [place] [address] [place] Urinalysis complete panel (U )on 08-17-2024 Bilirubin Ql (U) Negative Normal Negative [facility] Comment on above: Order Comment: Bobby villalpando Type: URINE SPECIMEN Ordering Facility: [facility] Address: [address] [place] [address] Performed By: #### 2 4356-8 #### [facility] [id number] [address] [place] [address] [place] Clarity (Unsp spec) Clear Normal Clear [facility] Comment on above: Order Comment: Speci men Type: URINE SPECIMEN Ordering Facility: [facility] Address: [address] [place] [address] Performed By: #### 2 4356-8 #### [facility] [id number] [place] [address] [place] Color (U) Light Yellow Normal yellow [facility] Comment on above: Order Comment: Speci men Type: URINE SPECIMEN Ordering Facility: [facility] Address: [address] [place] [address] Performed By: #### 2 4356-8 #### [facility] [id number] [address] [place], [place] [id number] [place] Epithelial cells LM.HPF (Urine sed) [#/Area] Few Normal [facility] Comment on above: Order Comment: Speci men Type: URINE SPECIMEN Ordering Facility: [facility] Address: [address] [place] [address] Performed By: #### 2 4356-8 #### [facility] [id number] [address] [place] [address] [place] Glucose Test strip (U) [Mass/Vol] Negative Normal Trace, Negative [facility] Comment on above: Order Comment: Speci men Type: URINE SPECIMEN Ordering Facility: [facility] Address: [address] [place] [address] Performed By: #### 2 4356-8 #### [facility] [place] [id number] [address] [place] [address] [place] Hemoglobin Ql (U) Trace Normal Negative, Trace [facility] Comment on above: Order Comment: Speci men Type: URINE SPECIMEN Ordering Facility: [facility] Address: [address] [place] [address] Performed By: #### 2 4356-8 #### [facility] CLIA [id number] [place] [address] [address] [facility] [place] Ketones Ql (U) Negative Normal Negative, Trace [facility] Comment on above: Order Comment: Speci men Type: URINE SPECIMEN Ordering Facility: [facility] Address: [address] [place] [address] Performed By: #### 2 4356-8 #### [facility] [place] [id number] [address] [place] [id number] [place] [address] [place] Leukocyte esterase Test strip Ql (U) 75 Red/uL Abnormal Negative, 25 Red/uL [facility] Comment on above: Order Comment: Speci men Type: URINE SPECIMEN Ordering Facility: [facility] Address: [address] [place] [address] Performed By: #### 2 4356-8 #### [facility] [place] [id number] [address] [place] [address] [place] Nitrite Ql (U) Negative Normal Negative [facility] Comment on above: Order Comment: Speci men Type: URINE SPECIMEN Ordering Facility: [facility] Address: [address] [place] [address] Performed By: #### 2 4356-8 #### [facility] [place] [id number] [address] [place] [address] [place] pH (U) 6.5 [pH] Normal 5.0-8.0 [facility] Comment on above: Order Comment: Speci men Type: URINE SPECIMEN Ordering Facility: [facility] Address: [address] [place] [address] Performed By: #### 2 4356-8 #### [facility] [place] [id number] [address] [place], [place] [id number] [place] Protein (U) [Mass/Vol] 2+ Abnormal Trace, Negative [facility] Comment on above: Order Comment: Speci men Type: URINE SPECIMEN Ordering Facility: [facility] Address: [address] [place] [address] Performed By: #### 2 4356-8 #### [facility] IA [id number] [address] [place] [address] [place] RBC LM.HPF (Urine sed) [#/Area] 6-10 /HPF Abnormal 0-3 /HPF [facility] Comment on above: Order Comment: Speci men Type: URINE SPECIMEN Ordering Facility: [facility] Address: [address] [place] [address] Performed By: #### 2 4356-8 #### [facility] [place] [id number] [place] [address] [place] Specific gravity (U) [Rel density] 1.017 Normal 1.005-1.030 [facility] Comment on above: Order Comment: Speci men Type: URINE SPECIMEN Ordering Facility: [facility] Address: [address] [place] [address] Performed By: #### 2 4356-8 #### [facility] [place] [id number] [address] [place] [address] [place] Urobilinogen Ql (U) Normal Normal Normal [facility] Comment on above: Order Comment: Speci men Type: URINE SPECIMEN Ordering Facility: [facility] Address: [address] [place] [address] Performed By: #### 2 4356-8 #### [facility] [place] [id number] [address] [place], [place] [address] [place] WBC LM.HPF (Urine sed) [#/Area] 11-25 /HPF Abnormal 0-5 /HPF [facility] Comment on above: Order Comment: Speci men Type: URINE SPECIMEN Ordering Facility: [facility] Address: [address] [place] [address] Performed By: #### 2 4356-8 #### [facility] [place] [id number] [place] [id number] [place] [address] [place] aPTT PPPon 08-17-2024 aPTT Coag (PPP) [Time] 29.5 s Normal 23.0-32.4 [facility] Comment on above: Order Comment: Speci men Type: BLOOD SPECIMEN Ordering Facility: [facility] Address: [address] [place] [address] Performed By: #### 3 4528-0, 74050-8 #### [facility] CLIA [id number] [place] [address] [place] CT ABD/PEL W IVCONon 024 CT ABD/PEL W IVCON Normal [facility] CT CHEST W IVCONon 4 CT CHEST W IVCON Normal [facility] Office Visiton 08-11-2024 Follow-up visit [id number] Wayne Oneal Jesus 1950 M Date Provider Department Center 08/11/2024 DARRELL ELIZABETH Family History Problem Relation Age of Onset Coronary artery disease Mother Family Status - Relation Status Age at Mother Level of Service:14100 NM OFFICE/OUTPATIENT ESTABLISHED LOW MDM 20 MIN Reason for Visit and Comments: Coronary Artery Disease [187] Normal [facility] CNPNon 08-04-2024 CNPN Normal [facility] CBC W Auto Differential pane l (Bld)on 07-30-2024 Basophils (Bld) [#/Vol] 0.04 10*3/uL [facility] Basophils/100 WBC (Bld) 0.6 % [facility] Differential cell count method Nom (Bld) Auto [facility] Eosinophils (Bld) [#/Vol] 0.17 10*3/uL [facility] Eosinophils/100 WBC (Bld) 2.5 % [facility] Erythrocyte distribution width (RBC) [Ratio] 14.8 % 11.5 - 15.0 % [facility] Hematocrit (Bld) [Volume fraction] 37.6 % Low 39.0 - 51.0 % [facility] Hemoglobin (Bld) [Mass/Vol] 11.8 g/dL Low 13.0 - 17.0 g/dL [facility] Immature granulocytes (Bld) [#/Vol] 0.06 10*3/uL [facility] Immature granulocytes/100 WBC (Bld) 0.9 % [facility] Interpretation and review of laboratory results Abnormal [facility] Lymphocytes (Bld) [#/Vol] 1.35 10*3/uL [facility] Lymphocytes/100 WBC (Bld) 19.8 % [facility] MCH (RBC) [Entitic mass] 28.3 pg 26.0 - 34.0 pg [facility] MCHC (RBC) [Mass/Vol] 31.4 g/dL 30.5 - 36.0 g/dL [facility] MCV (RBC) [Entitic vol] 90.2 fL 80.0 - 100.0 fL [facility] Monocytes (Bld) [#/Vol] 0.62 10*3/uL [facility] Monocytes/100 WBC (Bld) 9.1 % [facility] Neutrophils (Bld) [#/Vol] 4.59 10*3/uL [facility] Neutrophils/100 WBC (Bld) 67.1 % [facility] Nucleated RBC (Bld) [#/Vol] [facility] Nucleated RBC/100 WBC (Bld) [Ratio] 0.0 % /100 WBC [facility] Platelet mean volume (Bld) [Entitic vol] 9.5 fL 9.0 - 12.7 fL [facility] Platelets (Bld) [#/Vol] 226 10*3/uL [facility] RBC (Bld) [#/Vol] 4.17 10*6/uL Low 4.20 - 6.0 0 m/uL [facility] WBC (Bld) [#/Vol] 6.83 10*3/uL [facility] Basophils (Bld) [#/Vol] 0.04 10*3/uL Normal <0.11 [facility] Comment on above: Order Comment: Speci men Type: BLOOD SPECIMENOrdering Facility: [facility] Address: [address] [place] [address] Performed By: #### 5 7021-8 ####[facility] [id number] [place] [address] Basophils/100 WBC (Bld) 0.6 % Normal [facility] Comment on above: Order Comment: Speci men Type: BLOOD SPECIMENOrdering Facility: [facility] Address: [address] [place] [address] Performed By: #### 5 7021-8 ####[facility] [id number] [place] [address] Differential cell count method Nom (Bld) Auto Normal [facility] Comment on above: Order Comment: Speci men Type: BLOOD SPECIMENOrdering Facility: [facility] Address: [address] [place] [address] Performed By: #### 5 7021-8 ####[facility] [id number] [place] [address] Eosinophils (Bld) [#/Vol] 0.17 10*3/uL Normal <0.46 [facility] Comment on above: Order Comment: Speci men Type: BLOOD SPECIMENOrdering Facility: [facility] Address: [address] [place] [address] Performed By: #### 5 7021-8 ####[facility] [id number] [place] [address] Eosinophils/100 WBC (Bld) 2.5 % Normal [facility] Comment on above: Order Comment: Speci men Type: BLOOD SPECIMENOrdering Facility: [facility] Address: [address] [place] [address] Performed By: #### 5 7021-8 ####[facility] [id number] [place] [address] Erythrocyte distribution width (RBC) [Ratio] 14.8 % Normal 11.5-15.0 [facility] Comment on above: Order Comment: Speci men Type: BLOOD SPECIMENOrdering Facility: [facility] Address: [address] [place] [address] Performed By: #### 5 7021-8 ####[facility] [id number] [place] [address] Hematocrit (Bld) [Volume fraction] 37.6 % Low 39.0-51.0 [facility] Comment on above: Order Comment: Speci men Type: BLOOD SPECIMENOrdering Facility: [facility] Address: [address] [place] [address] Performed By: #### 5 7021-8 ####[facility] [id number] [place] [address] Hemoglobin (Bld) [Mass/Vol] 11.8 g/dL Low 13.0-17.0 [facility] Comment on above: Order Comment: Speci men Type: BLOOD SPECIMENOrdering Facility: [facility] Address: [address] [place] [address] Performed By: #### 5 7021-8 ####[facility] [id number] [place] [address] Immature granulocytes (Bld) [#/Vol] 0.06 10*3/uL Normal <0.10 [facility] Comment on above: Order Comment: Speci men Type: BLOOD SPECIMENOrdering Facility: [facility] Address: [address] [place] [address] Performed By: #### 5 7021-8 ####[facility] [id number] [place] [address] Immature granulocytes/100 WBC (Bld) 0.9 % Normal [facility] Comment on above: Order Comment: Speci men Type: BLOOD SPECIMENOrdering Facility: [facility] Address: [address] [place] [address] Performed By: #### 5 7021-8 ####[facility] [id number] [place] [address] Lymphocytes (Bld) [#/Vol] 1.35 10*3/uL Normal 1.00-4.00 [facility] Comment on above: Order Comment: Speci men Type: BLOOD SPECIMENOrdering Facility: [facility] Address: [address] [place] [address] Performed By: #### 5 7021-8 ####[facility] [id number] [place] [address] Lymphocytes/100 WBC (Bld) 19.8 % Normal [facility] Comment on above: Order Comment: Speci men Type: BLOOD SPECIMENOrdering Facility: [facility] Address: [address] [place] [address] Performed By: #### 5 7021-8 ####[facility] [id number] [place] [address] MCH (RBC) [Entitic mass] 28.3 pg Normal 26.0-34.0 [facility] Comment on above: Order Comment: Speci men Type: BLOOD SPECIMENOrdering Facility: [facility] Address: [address] [place] [address] Performed By: #### 5 7021-8 ####[facility] [id number] [place] [address] MCHC (RBC) [Mass/Vol] 31.4 g/dL Normal 30.5-36.0 [facility] Comment on above: Order Comment: Speci men Type: BLOOD SPECIMENOrdering Facility: [facility] Address: [address] [place] [address] Performed By: #### 5 7021-8 ####[facility] [id number] [place] [address] MCV (RBC) [Entitic vol] 90.2 fL Normal 80.0-100.0 [facility] Comment on above: Order Comment: Speci men Type: BLOOD SPECIMENOrdering Facility: [facility] Address: [address] [place] [address] Performed By: #### 5 7021-8 ####[facility] [id number] [place] [address] Monocytes (Bld) [#/Vol] 0.62 10*3/uL Normal <0.87 [facility] Comment on above: Order Comment: Speci men Type: BLOOD SPECIMENOrdering Facility: [facility] Address: [address] [place] [address] Performed By: #### 5 7021-8 ####[facility] [id number] [place] [address] Monocytes/100 WBC (Bld) 9.1 % Normal [facility] Comment on above: Order Comment: Speci men Type: BLOOD SPECIMENOrdering Facility: [facility] Address: [address] [place] [address] Performed By: #### 5 7021-8 ####[facility] [id number] [place] [address] Neutrophils (Bld) [#/Vol] 4.59 10*3/uL Normal 1.45-7.50 [facility] Comment on above: Order Comment: Speci men Type: BLOOD SPECIMENOrdering Facility: [facility] Address: [address] [place] [address] Performed By: #### 5 7021-8 ####[facility] [id number] [place] [address] Neutrophils/100 WBC (Bld) 67.1 % Normal [facility] Comment on above: Order Comment: Speci men Type: BLOOD SPECIMENOrdering Facility: [facility] Address: [address] [place] [address] Performed By: #### 5 7021-8 ####[facility] [id number] [place] [address] Nucleated RBC (Bld) [#/Vol] 10*3/uL Normal <0.01 [facility] Comment on above: Order Comment: Speci men Type: BLOOD SPECIMENOrdering Facility: [facility] Address: [address] [place] [address] Performed By: #### 5 7021-8 ####[facility] [id number] [place] [address] Nucleated RBC/100 WBC (Bld) [Ratio] 0.0 /100 WBC Normal [facility] Comment on above: Order Comment: Speci men Type: BLOOD SPECIMENOrdering Facility: [facility] Address: [address] [place] [address] Performed By: #### 5 7021-8 ####[facility] [id number] [place] [address] Platelet mean volume (Bld) [Entitic vol] 9.5 fL Normal 9.0-12.7 [facility] Comment on above: Order Comment: Speci men Type: BLOOD SPECIMENOrdering Facility: [facility] Address: [address] [place] [address] Performed By: #### 5 7021-8 ####[facility] [id number] [place] [address] Platelets (Bld) [#/Vol] 226 10*3/uL Normal 150-400 [facility] Comment on above: Order Comment: Speci men Type: BLOOD SPECIMENOrdering Facility: [facility] Address: [address] [place] [address] Performed By: #### 5 7021-8 ####[facility] [id number] [place] [address] RBC (Bld) [#/Vol] 4.17 10*6/uL Low 4.20-6.00 [facility] Comment on above: Order Comment: Speci men Type: BLOOD SPECIMENOrdering Facility: [facility] Address: [address] [place] [address] Performed By: #### 5 7021-8 ####[facility] [id number] [place] [address] WBC (Bld) [#/Vol] 6.83 10*3/uL Normal 3.70-11.00 [facility] Comment on above: Order Comment: Speci men Type: BLOOD SPECIMENOrdering Facility: [facility] Address: [address] [place] [address] Performed By: #### 5 7021-8 ####[facility]CLIA [id number] [place] [address] CEA SerPl-mCncon 07-30-2024 Carcinoembryonic Ag [Mass/Vol] 2.3 ng/mL Normal <=2.9 [facility] Comment on above: Order Comment: Speci men Type: BLOOD SPECIMENOrdering Facility: [facility] Address: [address] [place] [address] Result Comment: Carc inoembryonic antigen test is used as an aid in monitoring response to treatment or recurrence in patients with established colorectal, breast, lung, prostatic, pancreatic, and ovarian carcinomas. Clinical correlation is required.The Carcinoembryonic antigen test was performed using the [employer] DXI paramagnetic particle chemiluminescent immunoassay method. Results obtained with different assay methods or kits cannot be used interchangeably. Performed By: #### 2 039-6 ####[facility] LABCLIA [id number] [place] [address] [place] CNOVon 07-30-2024 CNOV Normal [facility] CNOVSPon 07-30-2024 CNOVSP Normal [facility] CNPNon 07-30-2024 CNPN Normal [facility] Comprehensive metabolic 2000 panelOrdered By: Jeffrey Hartman on 07-30-2024 Albumin [Mass/Vol] 4.2 g/dL 3.9 - 4.9 g/dL [facility] ALP [Catalytic activity/Vol] 57 U/L 38 - 113 U/L [facility] ALT [Catalytic activity/Vol] 7 U/L Low 10 - 54 U/L [facility] Anion gap [Moles/Vol] 11 mmol/L 8 - 15 mmol/L [facility] AST [Catalytic activity/Vol] 12 U/L Low 14 - 40 U/L [facility] Bilirubin [Mass/Vol] 0.6 mg/dL 0.2 - 1 .3 mg/dL [facility] Calcium [Mass/Vol] 9.5 mg/dL 8.5 - 10. 2 mg/dL [facility] Chloride [Moles/Vol] 102 mmol/L 98 - 10 7 mmol/L [facility] CO2 [Moles/Vol] 25 mmol/L 22 - 30 mmol/L [facility] Creatinine [Mass/Vol] 1.29 mg/dL High 0.73 - 1.22 mg/dL [facility] GFR/1.73 sq M.predicted among non-blacks MDRD (S/P/Bld) [Vol rate/Area] 57 mL/min/{1.73_m2} Low - PINF [facility] Comment on above: Estimated Glomerular Filtration Rate (eGFR) is calculated using the 2020 CKD-EPI creatinine equation. This equation utilizes serum creatinine, sex, and age as parameters. The creatinine assay has traceable calibration to isotope dilution-mass spectrometry. Refer to KDIGO guidelines for clinical interpretation. In patients with unstable renal function, e.g. those with acute kidney injury, the eGFR may not accurately reflect actual GFR. Glucose [Mass/Vol] 95 mg/dL 74 - 99 mg/dL [facility] Comment on above: The [place] Di[employer] Association (ADA) provides guidance for cutoff values for fasting glucose and random glucose. The ADA defines fasting as no caloric intake for at least 8 hours. Fasting plasma glucose results between 100 to 125 mg/dL indicate increased risk for diabetes (prediabetes). Fasting plasma glucose results greater than or equal to 126 mg/dL meet the criteria for diagnosis of diabetes. In the absence of unequivocal hyperglycemia, results should be confirmed by repeat testing. In a patient with classic symptoms of hyperglycemia or hyperglycemic crisis, random plasma glucose results greater than or equal to 200 mg/dL meet the criteria for diagnosis of diabetes. Reference: Standards of Medical Care in Diabetes 2016, [place] [employer]. Diabetes Care. 2016.39(Suppl 1). Interpretation and review of laboratory results Abnormal [facility] Potassium [Moles/Vol] 5.2 mmol/L High 3.7 - 5.1 mmol/L [facility] Protein [Mass/Vol] 6.7 g/dL 6.3 - 8.0 g/dL [facility] Sodium [Moles/Vol] 138 mmol/L 136 - 144 mmol/L [facility] Urea nitrogen [Mass/Vol] 18 mg/dL 9 - 24 mg/dL [facility] Comprehensive metabolic 2000 panelon 07-30-2024 Albumin [Mass/Vol] 4.2 g/dL Normal 3.9-4.9 [facility] Comment on above: Order Comment: Speci men Type: BLOOD SPECIMENOrdering Facility: [facility] Address: [address] [place] [address] Performed By: #### 2 4323-8 ####[facility] LABCLIA [id number] [place] [address] ALP [Catalytic activity/Vol] 57 U/L Normal 38-113 [facility] Comment on above: Order Comment: Speci men Type: BLOOD SPECIMENOrdering Facility: [facility] Address: [address] [place] [address] Performed By: #### 2 4323-8 ####[facility] LABCLIA [id number] [place] [address] ALT [Catalytic activity/Vol] 7 U/L Low 10-54 [facility] Comment on above: Order Comment: Speci men Type: BLOOD SPECIMENOrdering Facility: [facility] Address: [address] [place] [address] Performed By: #### 2 4323-8 ####[facility] LABCLIA [id number] [place] [address] Anion gap [Moles/Vol] 11 mmol/L Normal 8-15 [facility] Comment on above: Order Comment: Speci men Type: BLOOD SPECIMENOrdering Facility: [facility] Address: [address] [place] [address] Performed By: #### 2 4323-8 ####[facility] LABCLIA [id number] [place] [address] AST [Catalytic activity/Vol] 12 U/L Low 14-40 [facility] Comment on above: Order Comment: Speci men Type: BLOOD SPECIMENOrdering Facility: [facility] Address: [address] [place] [place] [address] Performed By: #### 2 4323-8 ####[facility] LABCLIA [id number] [place] [address] Bilirubin [Mass/Vol] 0.6 mg/dL Normal 0.2-1.3 [facility] Comment on above: Order Comment: Speci men Type: BLOOD SPECIMENOrdering Facility: [facility] Address: [address] [place] [address] Performed By: #### 2 4323-8 ####[facility] LABCLIA [id number] [place] [address] Calcium [Mass/Vol] 9.5 mg/dL Normal 8.5-10.2 [facility] Comment on above: Order Comment: Speci men Type: BLOOD SPECIMENOrdering Facility: [facility] Address: [address] [place] [address] Performed By: #### 2 4323-8 ####[facility] LABCLIA [id number] [place] [address] Chloride [Moles/Vol] 102 mmol/L Normal 98-107 [facility] Comment on above: Order Comment: Speci men Type: BLOOD SPECIMENOrdering Facility: [facility] Address: [address] [place] [address] Performed By: #### 2 4323-8 ####[facility] LABCLIA [id number] [place] [address] CO2 [Moles/Vol] 25 mmol/L Normal 22-30 [facility] Comment on above: Order Comment: Speci men Type: BLOOD SPECIMENOrdering Facility: [facility] Address: [address] [place] [address] Performed By: #### 2 4323-8 ####[facility] LABCLIA [id number] [place] [address] Creatinine [Mass/Vol] 1.29 mg/dL High 0.73-1.22 [facility] Comment on above: Order Comment: Speci men Type: BLOOD SPECIMENOrdering Facility: [facility] Address: [address] [place], [place] [address] Performed By: #### 2 4323-8 ####[facility] LABCLIA [id number] [place] [address] Creatinine and Glomerular filtration rate.predicted panel (S/P/Bld) 57 mL/min/1.73m??? Low >=60 [facility] Comment on above: Order Comment: Bobby villalpando Type: BLOOD SPECIMENOrdering Facility: [facility] Address: [address] [place] [address] Result Comment: Annalisa mated Glomerular Filtration Rate (eGFR) is calculated using the 2020 CKD-EPI creatinine equation. This equation utilizes serum creatinine, sex, and age as parameters. The creatinine assay has traceable calibration to isotope dilution-mass spectrometry. Refer to KDIGO guidelines for clinical interpretation. In patients with unstable renal function, e.g. those with acute kidney injury, the eGFR may not accurately reflect actual GFR. Performed By: #### 2 4323-8 ####[facility] LABCLIA [id number] [place] [address] Glucose [Mass/Vol] 95 mg/dL Normal 74-99 [facility] Comment on above: Order Comment: Bobby villalpando Type: BLOOD SPECIMENOrdering Facility: [facility] Address: [address] [place] [address] Result Comment: The [place] [employer] (ADA) provides guidance for cutoff values for fasting glucose and random glucose. The ADA defines fasting as no caloric intake for at least 8 hours. Fasting plasma glucose results between 100 to 125 mg/dL indicate increased risk for diabetes (prediabetes).Fasting plasma glucose results greater than or equal to 126 mg/dL meet the criteria for diagnosis of diabetes. In the absence of unequivocal hyperglycemia, results should be confirmed by repeat testing. In a patient with classic symptoms of hyperglycemia or hyperglycemic crisis, random plasma glucose results greater than or equal to 200 mg/dL meet the criteria for diagnosis of diabetes.Reference: Standards of Medical Care in Diabetes 2016, [place] [employer]. Diabetes Care. 2016.39(Suppl 1). Performed By: #### 2 4323-8 ####[facility] LABCLIA [id number] [place] [address] Potassium [Moles/Vol] 5.2 mmol/L High 3.7-5.1 [facility] Comment on above: Order Comment: Speci men Type: BLOOD SPECIMENOrdering Facility: [facility] Address: [address] [place] [address] Performed By: #### 2 4323-8 ####[facility] LABCLIA [id number] [place] [address] Protein [Mass/Vol] 6.7 g/dL Normal 6.3-8.0 [facility] Comment on above: Order Comment: Speci men Type: BLOOD SPECIMENOrdering Facility: [facility] Address: [address] [place] [address] Performed By: #### 2 4323-8 ####[facility] LABCLIA [id number] [place] [address] Sodium [Moles/Vol] 138 mmol/L Normal 136-144 [facility] Comment on above: Order Comment: Speci men Type: BLOOD SPECIMENOrdering Facility: [facility] Address: [address] [place] [address] Performed By: #### 2 4323-8 ####[facility] LABCLIA [id number] [place] [address] Urea nitrogen [Mass/Vol] 18 mg/dL Normal 9-24 [facility] Comment on above: Order Comment: Speci men Type: BLOOD SPECIMENOrdering Facility: [facility] Address: [address] [place] [address] Performed By: #### 2 4323-8 ####[facility] LABCLIA [id number] [place] [address] Ferritin [facility] Ferritin [Mass/Vol] 136.0 ng/mL Normal 30.3-565.7 [facility] Comment on above: Order Comment: Speci men Type: BLOOD SPECIMENOrdering Facility: [facility] Address: [address] [place] [address] Performed By: #### 2 284-8, 22530-3, 2276-02, 2132-07 ####[facility] LABCLIA [id number] [address] [address] [place] Folate SerPl-mCncon 07-30-20 Folate [Mass/Vol] 11.8 ng/mL Normal >4.7 [facility] Comment on above: Order Comment: Speci men Type: BLOOD SPECIMENOrdering Facility: [facility] Address: [address] [place] [address] Performed By: #### 2 284-8, 84673-2, 4, 2132-07 ####[facility] LABCLIA [id number] [place] [id number] [place] Iron and Iron binding capaci ty panelon 07-30-2024 Iron [Mass/Vol] 43 ug/dL Normal 41-186 [facility] Comment on above: Order Comment: Speci men Type: BLOOD SPECIMENOrdering Facility: [facility] Address: [address] [place] [address] Performed By: #### 2 284-8, 54299-0, 2276-02, 2132-07 ####[facility] LABIA [id number] [address] [place] Iron binding capacity [Mass/Vol] 324 ug/dL Normal 232-386 [facility] Comment on above: Order Comment: Speci men Type: BLOOD SPECIMENOrdering Facility: [facility] Address: [address] [place] [address] Performed By: #### 2 284-8, 62129-0, 4, 2132-07 ####[facility] LABIA [id number] [place] [id number] [place] Iron/TIBC [Molar ratio] 13.3 % Low 15.0-57.0 [facility] Comment on above: Order Comment: Speci men Type: BLOOD SPECIMENOrdering Facility: [facility] Address: [address] [place] [address] Performed By: #### 2 284-8, 20238-0, 6-4, 2131-9 ####[facility] LABIA [id number] [place] [id number] [place] [facility] 07-30-2024 Prostate specific Ag [Mass/Vol] ng/mL Normal <2.60 [facility] Comment on above: Order Comment: Speci men Type: BLOOD SPECIMENOrdering Facility: [facility] Address: [address] [place] [address] Result Comment: Tota l PSA test methodology used is the Electrochemiluminescence Immunoassay by [employer]. Total PSA values by differing methodologies cannot be interchanged. Performed By: #### 2 857-1 ####[facility] LABIA [id number] [place] [address] [place] Vit B12 [facility] 024 Cobalamin (Vitamin B12) [Mass/Vol] 593 pg/mL Normal 232-1245 [facility] Comment on above: Order Comment: Speci men Type: BLOOD SPECIMENOrdering Facility: [facility] Address: [address] [place] [address] Performed By: #### 2 284-8, 98143-9, 6-4, 9 ####[facility] LABIA [id number] [place] [address] [place] CNPNon 07-29-2024 CNPN Normal [facility] Office Visiton 07-29-2024 Follow-up visit [id number] Wayne Oneal 1950 M Date Provider Department Center 07/29/2024 DARRELL ELIZABETH Family History Problem Relation Age of Onset Coronary artery disease Mother Family Status - Relation Status Age at Mother Level of Service:52527 NM OFFICE/OUTPATIENT ESTABLISHED MOD MDM 30 MIN Reason for Visit and Comments: Coronary Artery Disease [187] Normal [facility] DPYD/UGT1A1 GENOTYPING PANEL on 09-17-2024 DPYD/UGT1A1 GENOTYPING PANEL RESUL [employer] ([facility]) DPYD and UGT1A1 Genotyping Laboratory Accession Number: [id number] DPYD Genotype: *1/*1 DPYD Activity Score: 2 DPYD Predicted Phenotype: DPYD Normal Metabolizer UGT1A1 Genotype: *1/*80+*28 UGT1A1 Predicted Phenotype: UGT1A1 Intermediate Metabolizer Interpretation: Two normal function alleles were observed in the DPYD gene (see variant details below) resulting in an activity score of 2. This activity score is associated with a DPYD normal metabolizer phenotype. DPYD normal metabolizers are not expected to require (based on pharmacogenomic results alone) selective adjustment of the dose of medications metabolized by DPD. Please consult a clinical pharmacist for more information regarding drug therapy. Questions regarding molecular testing details should be directed to [facility] . One decreased function UGT1A1 allele, in combination with either one normal function or one increased function UGT1A1 allele, was observed in this sample (see variant details below). This is associated with a UGT1A1 intermediate metabolizer phenotype. UGT1A1 intermediate metabolizers are not expected to require (based on pharmacogenomic results alone) selective adjustment of the dose of medications metabolized by UGT. Please consult a clinical pharmacist for more information regarding drug therapy. Questions regarding molecular testing details should be directed to [facility] . The DPYD gene encodes dihydropyrimidine dehydrogenase (DPD). This enzyme is involved in the metabolism of fluoropyrimidines. The UGT1A1 gene encodes UDP-glucuronosyltransferase (UGT). UGT is involved in the metabolism of certain medications including ones used in oncology. For clinical correlation, drug-specific guidelines are available to provide phenotype assignment and therapeutic recommendations based on phenotype. Patients who carry genetic variants associated with altered metabolism may be at risk for an adverse or poor response to drugs that are predominantly metabolized by the associated enzyme (DPD or UGT). For patients with altered DPD and/or UGT activity, alternative pharmacological agents or dosing adjustments may be needed for medications metabolized by this enzyme to avoid an unexpected or adverse response. Please note that this DPYD genotyping test includes variants that may not have been assayed in a previous test performed elsewhere. If there is discordance of phenotype results between laboratories, it is likely a function of the different variants assayed in each test. The methodology section of the report (see below) lists the variants interrogated by this test. DPYD Variant Details: NA UGT1A1 Variant Details: UGT1A1 [id number], c.-346C>T, g.[id number]>T; (legacy name 80), UGT1A1 [id number], c.-41_-40dupTA g.[id number]; (legacy name 28) DPYD Additional Information: In addition to increased risk of 5-fluorouracil toxicity, variants in the DPYD gene may be associated with DPD deficiency, an autosomal recessive inborn error of metabolism (OMIM: 714469). DPD deficiency exhibits a wide range of phenotypic variability, from no symptoms to a very rare severe neurological disorder with onset in infancy or childhood (prevalence unknown). For the vast majority of affected individuals, the first and only symptom is sensitivity to 5-fluorouracil and capecitabine. It is possible that individuals with DPD deficiency may be identified by the presence of two no-function DPYD variants (activity score = 0). However, this test is designed as a pharmacogenomic test and is not intended as a diagnostic or carrier test for DPD deficiency. A formal genetics consultation is recommended for those with concerns regarding DPD deficiency. Limitations: DNA studies do not provide a definitive genetic or pharmacogenomic risk in all individuals. This test is designed to detect a specific set of variants (see list below) in the DPYD gene (OMIM 583052) and UGT1A1 gene (OMIM 338504). This test does not detect all sequence variants in either gene. Uncommon variants or single nucleotide polymorphisms may affect binding of primers and probes and may result in false negative, false positive, or indeterminate results. The absence of abnormal variants as analyzed in this test is interpreted as the presence of *1/*1 (wild type/normal) genotype. The phenotype provided in the interpretation may be impacted by undetected genetic and/or non-genetic factors such as drug-drug interactions. Methodology: Purified genomic DNA was subjected to polymerase chain reaction-based amplification. The DPYD (NM_000110.3) and UGT1A1 (NM_000463.3) genes were interrogated for known, clinically relevant variants. Primer extension products were analyzed using matrix-assisted laser desorption/ionization massspectrometry, and specific genotypes assigned were then translated to the appropriate star (*) allele (DPYD and UGT1A1) and activity score (DPYD), see lists below. The reference genome used is GRCh38/hg38 (more content not included)... [facility] CNPNon 07-23-2024 CNPN Normal [facility] CYTOLOGY NON-GYNOrdered By: Lizzette Ayers on 07-23-2024 Case Report Medical Cytology Rep ort Case: [id number] Authorizing Provider: Elliott Sanchez MD Collected: 07/22/2024 10:17 AM Ordering Location: Urology Received: 07/22/2024 04:10 PM Pathologist: Lizzette Ayers MD Specimen: Urine, Voided [facility] Work Phone: Clinical History a1bplRDqULKvj9hsAGXy bGFuZzEw RaZdOfVcEkj2YLKumhX8Pvz5VHDd YKzikF2vONTcYCguY7lauaRbbPOk RWFsLAd0fS6egPttjC7hPdHvCoFf XXHpQ6WjKI4bceksNq6fGNgvxbh3 x7TvnE3mixitfAFzDO8= [facility] Work Phone: FINAL DIAGNOSIS a4rcdGOdDMUvkWLwNGqb MlxhbnNp OTQqcCXdB7UoixcjAUzkXH2wQY6l gYbavINlhQNsYWQgLaYwx5rcc316 kOMoz4tgWGXIcyhjjTf5fSnhG69i j8L5WvoiB4lzQNUzBXgzKMDbPIvh bHVlMDtccmVkMFxncmVlbjBcYmx1 TKH9AAl8CFPihDYqxvWgIbPrMYUu dCOjhYM9UWQyVK6ywcrnVkMwCC9z akquNyUzUM5rsuf3YoAkCD2ybusn UnLwXDvbGCYaexn4LyCnJg5ehFCf xVcoXWlhJ7xmbM0pMyC5DUaoI7qy xK1oRUb0UGuyUDNdmJL3cqjvOLlz PRShejU5egvvDLdjCDPixRF4kbfe DKawDNOiRkV6tdjcFHnoSVSmRSGt YWluXGJcZnMyMlxjZjEgQSAtIFVy wX0aZJPGl6qeXEXoBFJqfxMnXRMc GQYoIOLvMCP5yHqlDNwrbJBlcWsg iQvhlRNgZGppbpV8pELaNA2cxoyy XCNhRPrqrzCfJEIvyaOeV1tddbvk gfjmig53CP69rPOfr6qmMJDbrKYi vz4kaNdtHsyiYDEsDOAmBEVvQYBr IFxwYXIgICAgICBccGFyXGNmMFx0 NONpECRxFINeWVDhrukrNEAbR9Uf XHBhclxiMFxjZjBccGFyfQ== [facility] Work Phone: Gross Description e2fjsSLaLADinMVTKOS9 YRLoJO1c oXjxqPj1sBsiKLFrdxB6pTRjRLqe j2nzCUQ9m7syyvULAbaiOHXpKF2n LOncZENlWA8xQjTcBQUeVzUqPYCe eUMjnrNjNcIqRSTbaHVupYA9GAPc OV5twhfiCCjgHVupSZYbmtK4EHNh wUOnF9YnMOXhRI1lijssQDY5XKUM OkthCp8htIQoeDzwDlVbYgHuLUZz UFPoPRWpt7qgwfQScqosgQh1sY5F AHPcG6FkCY8Xr7kvWOCixBPwVXY3 KYuav9meCBiiRYM5ZXRdXGAmCUWv MH8CJpGlYPklYJA9KaipZbU5PLz2 YRXBLGKvRAG8CmewFBOuDJp2CQdo XFxuaCBcXHQgMSBcXGZsIFxcbmN9 u7nqDZAukYCpCAR3UPwwz2kdQMwp AKB7FYNsBmLhJNSgCS0WAaRuYXad PSU7UtuoKhS7EOz3GIOHPlQrWkNl FIwvMDP8TUnuUYg9QMj5HHzKQnHd PkjdHia8KTq0DVB5SHEeKfOoNWMs WwDiCMJfVJVxNVulqAUkVQ5noGdw HPWzQN7SXDFpECqiFJTpKaIxBL8x VXJpbmUsIFZvaWRlZFxsdHJjaFxw YXIgDQpccGFyZCANClxwbGFpblxs rZDzrKmmhrIxYHVdzYXCJMB8NU6e HLWYBhtdcKOeOWXwg0UyLPpfoJes GVJhFgYpYSieClWgMREjJHXbE0Za O9erZGWdrLbthHAtfJHoeB84JQSh rEoaPHjeSGTyH58og3AHa3Vtq1ts bCver7CcdFBfOV01EWJjxIQpVOF2 VF4slJnyPABeXPgddHOsTRJNRcbb rrUmGE6MqD== [facility] Work Phone: Performing Lab v9eprOVlIVQdc7uqFGGv bGFuZzEw MzNcZnRuYmpcdWMxIHtccnRmMVxh tqWvQHScByithjnpDJNcRGT0dnYk USDqLXF5JZU3QgTez5M3FZDxFpNv PERbMI3puVweWXYyHT0xVBMwJ1ht pV8mhpp8WeSqUBFzPgD3ORXyxdP3 Sph6NFNoNDodt8qni5SqAPRqEIs3 aFbrTvJrUNYtq9kmufBtDuSsZPGi BENhTYPklGBwN727z6qwh3fifxVy tQU5LEMbBAF1DGkevxFszvD9HLam rCAdNqZ0GOvxxrFwFFfdqjRjbxKr Nxn5BXTnA799JUC0qGsby3irMBR0 IFCfIVPiKfJiYl0beVUjF554GEYh KLMUIGLhaWb8HFQrwdQhkfImwVOG b176T385x9lnEPEmtnKnuCgVfumj n2ncY426MYSunAZycxPnDkTwQUBt bGHpmYF3ZNAaEG2dgwggPBdrTQrx GCNuucI0APRexFPnL6NgPNDtSO6y yiweNKB0XTjbIXTmFKI0FmJdHZDx g9Eqmbs1PkYolp9kuu78YBC5v9Fp iUvqFEP5YXM4UkYrYi3bwIYzQXMm QY7pHdPriGYbMAPrxu89yRfsZLqw psTleG7yPpIcXXFtsYIqRFTcKE8b tSScFBPdvB5zbespLYKyOdRkboua YKVvsPykimHfTd5doCgpYDF5RHun V3tnrC0gZoC6XMhtV9mdgS8gMQw5 WJjgaQC9QAKimD4eTA5tlmxuq3gk WFvhRWolCDRhlfU3azO0DGUdbBRl D8FajF9xJAVnYN4aiifym5nzEFK8 IBqfLGJxKUL2RtKlABNsq3Lfjsp9 HhNma4UcgIFyEUngJ70kv630YFTr bkZaY0jvlOJpzqwcxTOmenmpHSld ewO0JPVfYGOgKGjuTXSeEYPpZeJu bGFuZzEwMzNcaGljaFxmMVxkYmNo KXFrUZwzV5xpFgYvAkSvUwFDGGYv aofjLNedI77haO0pMF81HNSbmENu bYHcyH7vzO3fqUV8XNJireGnaqth PeZiWGShn7TyCMPaWUNjF1eabzLg LI1sKKUadI4nGdkyYGVoFXLTqNLo hKFdBHDlEOCCzVN5UNcghgCqI9wc NDQxOTUgICBDTElBIyAzNkQwNjU2 QEe3FFVsnf53s6xwkJEbPPVmaTOb EuYmZNLlXLZhz6wfFVLnoQHjKuRe YhCiYkAkEdiktDMtRBMqMwCxt6vp h515kASoj0ucIQFaSfO7iPZkCHXs iVBnU948YJSvSRcgh6btn9BtNCNg jGPqy7C1VEAIpulniZz0aXmsO56u q3T9UpeeK7pnNIPyTKXpQ0LiFQ0u IFWcIrz1JAR9HSO5RXIzFZUtP1Qe ZX5aKNYsyPTpSWn1m8vmuVyyFBNu EQN2v4mgAYdgwbVrHZ0loz6ylXl7 t2olaxDxUMUhSOOaeFPTKUNhW4Ir jAptLs4hqCu1rAfsPxewLLS2Sss3 NT6tqk66hfl7pPgsNHXwlwwpMxI1 GQkoCICedemwMEs8RSspJLLpyFM2 IIWwmRNgV6TuDQpoCD3pjtr8AEF5 UHwqEXVjKrK3TYKbkCCfOOPcmRww KNbsi919ILL3KmFpUJ3lM8Xsv2O6 vF5tsDCpNRRunSOySlEjARYbtm3s gZPyYBsoi0HyHKQ6wgV8uWWjmHBi ZIJjDR93Yxysw7NbTsnpu8RoH11s iZW6PUffo5yxDZ7jTdD5dzVqLExt n1xrjR0yFtR2GRorPM1xSF2nATSi rO7eusdkQQEvQmGcfrmbGVNkjVzs fvHuGy1owZoaEXG0NEkmJ3hxnJ6s DoK9SIviS7uisE3oXXf7VKthbZQ0 IRTliC7qUD7xcfuzj7xhTJjoLCey LLHglkA6yzCsYXJglNYqJ6VxgF8d QBMdUC1pfoeng8cxLBD1SCvqPWKy BUX6DdZdWZGql9Mycdv6MfZlo2Xi zNAxJLlqY37ro796BAVgfvDxH3kz kDNalbmpbFHosrmdTBaofbH8OHPz XHBsYWluXGYxXGZzMjBcbGFuZzEw MzNcaGljaFxmMVxkYmNoXGYxXGxv U9buGiScQhHkRATQmHNyxz6qiQpx KAxkvHAenITmaSE3bL2lRVJpwjUq rw0jEELvjYNBvCM5WSrocpGxN6hd pahoNLI9ARImCNJ4N9tmNKEJxwId KYOgZFTqiZHsJLPPZHK3UAO5HCOs RYTWCOMgZZT6SFA4UOYxFVBdiAKx XHBhclxwYXJkXHBsYWluXGYwXGZz RiOqdPbqeI0fOuRqZnBdKUgzME3o JBRiV7zprXVgIWSoYFEsD3tyTdCu nB5csLbdYQziXjKpSlCsBQxgeHUd eABLBJZpmsM2g9P8MSayoVZmwkys ZGieukZrJSqqsxkgWMMpIKmyD4us JwNkADQvtZsrPXwam4YqBLBqHDLj YfEtABimWBT7e1A4AVnjhLYndgST IqNSIN9aiPUgznfpJE4CHcbukIXw blxmMVxmczIyXGxhbmcxMDMzXGhp K3iyXrTiOKBixCdbYLkmd3XgFVOg XGZzMjJccGFyfX0= [facility] Work Phone: [facility] Work Phone: Bacteria Ur Culton 4 Bacteria identified Cx Nom (U) ORGANISM ID: 1 <10,000 CFU/ml Normal urogenital bola [facility] Comment on above: Performed By: #### 6 30-4 ####[facility] LABCLIA [id number] [place] [address] [place] CNOVon 07-22-2024 CNOV [facility] CNOVSPon 07-22-2024 CNOVSP [facility] CYTOLOGY NON-GYNon 4 CASE REPORT [facility] Comment on above: Order Comment: Speci men Type: URINE SPECIMENOrdering Facility: [facility] Address: [address] [place] [address] Result Comment: [facility] Cytology Report Case: [id number] Provider: Elliott Sanchez MD Collected: 07/22/2024 10:17 AMOrdering Location: Urology Received: 07/22/2024 04:10 PMPathologist: Lizzette Ayers MDSpecimen: Urine, Voided Performed By: #### C YTONON ####[facility] LABCLIA [id number] [place] [address] [place] CLINICAL HISTORY screening for genitourinary [facility] Comment on above: Order Comment: Speci men Type: URINE SPECIMENOrdering Facility: [facility] Address: [address] [place] [address] Performed By: #### C YTONON ####[facility] LABCLIA [id number] [place] [address] [place] FINAL DIAGNOSIS [facility] Comment on above: Order Comment: Speci men Type: URINE SPECIMENOrdering Facility: [facility] Address: [address] [place] [address] Result Comment: A - Urine, Voided Atypical urothelial cells with marked degenerative changes, not otherwise diagnostic. Performed By: #### C YTONON ####[facility] LABCLIA [id number] [place] [address] [place] FINAL PERFORMING LAB Normal [facility] Comment on above: Order Comment: Speci men Type: URINE SPECIMENOrdering Facility: [facility] Address: [address] [place] [address] Result Comment: Tech nical component, reel tender screening performed at [facility], [address] [place] [address] CLIA# [id number] interpretation performed at [facility], [address] [place] [address] CLIA# [id number] Director: Jeffrey Tolentino M.D. Performed By: #### C YTONON ####[facility] LABCLIA [id number] [place] [address] [place] GROSS DESCRIPTION Normal [facility] Comment on above: Order Comment: Speci men Type: URINE SPECIMENOrdering Facility: [facility] Address: [address] [place] [address] Result Comment: A. U rine, [id number] cc clear light yellow fluid Performed By: #### C YTONON ####[facility] LABCLIA [id number] [place] [address] [place] DPYD/UGT1A1 GENOTYPING PANEL on 07-22-2024 DPYD/UGT1A1 GENOTYPING PANEL RESULT Normal [facility] Comment on above: Order Comment: Speci men Type: BLOOD SPECIMENOrdering Facility: [facility] Address: [address] [place] [address] Result Comment: [email or web address] ([employer]) DPYD and UGT1A1 GenotypingLaboratory Accession Number: [id number] Genotype: *1/*1DPYD Activity Score: 2DPYD Predicted Phenotype: DPYD Normal XzryfkebaslGGA2P4 Genotype: *1/*80+*[id number] Predicted Phenotype: UGT1A1 Intermediate MetabolizerInterpretation:Two normal function alleles were observed in the DPYD gene (seevariant details below) resulting in an activity score of 2. Thisactivity score is associated with a DPYD normal metabolizer phenotype.DPYD normal metabolizers are not expected to require (based onpharmacogenomic results alone) selective adjustment of the dose ofmedications metabolized by DPD. Please consult a clinical pharmacistfor more information regarding drug therapy. Questions regardingmolecular testing details should be directed .One decreased function UGT1A1 allele, in combination with either one normal function or one increased function UGT1A1 allele, wasobserved in this sample (see variant details below). This isassociated with a UGT1A1 intermediate metabolizer phenotype. PRG0I6gwexkbbgsihs metabolizers are not expected to require (based onpharmacogenomic results alone) selective adjustment of the dose ofmedications metabolized by UGT. Please consult a clinical pharmacistfor more information regarding drug therapy. Questions regardingmolecular testing details should be directed .The DPYD gene encodes dihydropyrimidine dehydrogenase (DPD). Thisenzyme is involved in the metabolism of fluoropyrimidines. The CRD3Z5gpvv encodes UDP-glucuronosyltransferase (UGT). UGT is involved in themetabolism of certain medications including ones used in oncology. Forclinical correlation, drug-specific guidelines are available toprovide phenotype assignment and therapeutic recommendations based onphenotype. Patients who carry genetic variants associated with alteredmetabolism may be at risk for an adverse or poor response to drugsthat are predominantly metabolized by the associated enzyme (DPD orUGT). For patients with altered DPD and/or UGT activity, alternativepharmacological agents or dosing adjustments may be needed formedications metabolized by this enzyme to avoid an unexpected oradverse response.Please note that this DPYD genotyping test includes variants that maynot have been assayed in a previous test performed elsewhere. If thereis discordance of phenotype results between laboratories, it is likelya function of the different variants assayed in each test. Themethodology section of the report (see below) lists the variantsinterrogated by this test.DPYD Variant Details:SXILA3T1 Variant Details:UGT1A1 [id number], c.-346C>T, g.[id number]>T; (legacy name 80), [id number], c.-41_-40dupTA g.[id number]; (legacy name 28)DPYD Additional Information:In addition to increased risk of 5-fluorouracil toxicity, variants inthe DPYD gene may be associated with DPD deficiency, an autosomalrecessive inborn error of metabolism (OMIM: 104429). DPD deficiencyexhibits a wide range of phenotypic variability, from no symptoms to gianluca rare severe neurological disorder with onset in infancy orchildhood (prevalence unknown). For the vast majority of affectedindividuals, the first and only symptom is sensitivity to5-fluorouracil and capecitabine. It is possible that individuals withDPD deficiency may be identified by the presence of two no-function DPYD variants (activity score = 0). However, this test is designed asa pharmacogenomic test and is not intended as a diagnostic or carriertest for DPD deficiency. A formal genetics consultation is recommendedfor those with concerns regarding DPD deficiency.Limitations:DNA studies do not provide a definitive genetic or pharmacogenomicrisk in all individuals. This test is designed to detect a specificset of variants (see list below) in the DPYD gene (OMIM 729097) zlfJEC3D1 gene (OMIM 072913). This test does not detect all sequencevariants in either gene. Uncommon variants or single nucleotidepolymorphisms may affect binding of primers and probes and may resultin false negative, false positive, or indeterminate results. Theabsence of abnormal variants as analyzed in this test is interpretedas the presence of *1/*1 (wild type/normal) genotype. The phenotypeprovided in the interpretation may be impacted by undetected geneticand/or non-genetic factors such as drug-drug interactions.Methodology:Purified genomic DNA was subjected to polymerase chain reaction-basedamplification. The DPYD (NM_000110.3) and UGT1A1 (NM_000463.3) geneswere interrogated for known, clinically relevant variants. Primerextension products were analyzed using matrix-assisted laserdesorption/ionization massspectrometry, and specific genotypesassigned were then translated to the appropriate star (*) allele (DPYDand UGT1A1) and activity score (DPYD), see lists below. The referencegenome used is GRCh38/hg38.UGT1A1 star alleles: *1, *6, *27, *28, *36, *37, *80, *80+*28,*80+*36, and *80+*37. These alleles are detected using the presence orabsence of the following variants, RefSNP ID: [id number], [id number] (TA repeats), and [id number].DPYD star alleles and targeted variants:RefSNP ID Legacy Total Allele Highest Allele Name Frequency Frequency General Population (Population)No variantdetected *[id number] *2A 0.6% 2.4% (Eur F)[id number] *8 0.01% 0.03% (S )[id number] *10 n/oii58923337 *12 0.0008% 0.003% (S )[id number] *13 0.03% 0.06% (Eur F)[id number] Y186C 0.2% 2.15% ()[id number] c.2846A>T 0.3% 0.5% (Eur NF)[id number] HapB3 1.4% 2.1 % (Eur NF)[id number] HapB3(c.1236G>A) 1.4% 2.1% (Eur NF)Population frequencies are from gnomAD and may be different inspecific ethnic groups. The allele frequency shown is the total allelefrequency in all populations. The highest allele frequency for asingle population is also noted (Eur F = [place], Eur NF = non-[place]ib[place]ian, S = South ). Note: [id number] (HapB3)and [id number] (c.1236G>A) are in linkage disequilibrium thus aretypically seen together.References:1) Clinical Pharmacogenetics Implementation Consortium (CPIC):www.CPICpgx.org2) Pharmacogene Variation Consortium (PharmVar): www.PharmVar.org3) Genome Aggregation Database V2.1.1 (gnomAD), accessed November2021, https://Trigger.ioomad.Easy Bill Onlinetitute.org4) Anatoliy Silvagh EM, Bonifacio JM, et al. PharmacogenomicsKnowledge for Personalized Medicine Clinical Pharmacology andTherapeutics (2012) 92(4): 414-417.5) Paty U, Randa BRYANT, Salvador SM, et al. Clinical PharmacogeneticsImplementation Consortium (CPIC) Guideline for DihydropyrimidineDehydrogenase Genotype and Fluoropyrimidine Dosin Update. ClinPharmacol Ther. 2018;103(2):210-216.6) [employer], ADENTS HTI of Medicine 2020. Dihydropyrimidinedehydrogenase deficiency, accessed 30 May 2021,https://medlineplus.gov/genetics/condition/dihydropyrimidine -dehydrogenase-deficiency/#resources7) Marguerite N, Malgorzata SHAW, Maddy BROOKSM, [address] Sarah ABP. Purine andPyrimidine Metabolism: Pyrimidine Metabolism: DihydropyrimidineDehydrogenase. Jaylon and Mike's Principles and Practice of MedicalGenetics and Genomics: Metabolic Disorders, Seventh Edition. Edited byAbril Vo al, Elsevier. 2020. Sections 6.3.4 - 6.3.4.4https://dak-xzzafswwgir-egr.ccmain.[facility].org/#!/content/ book/3-s2.0-N1465084777280191920?scrollTo=%06pg18795996) Jose RS, Cherri MH, Gwen CE, et al. Clinical PharmacogeneticsImplementation Consortium (CPIC) Guideline for UGT1A1 and AtazanavirPrescribing. Clinical Pharmacology and Therapeutics (2016) Apr;99(4):363-9.9) King Tg, Nathalie GODWIN. Overview of Glibert's syndrome. Drug TherBull. 2019 Dec 57(2):27-30.10) [facility] 2020, Gilbert Syndrome, accessed 30 May 2021,https://my.[facility].org/health/diseases/08395-wazffke s-syndromeDisclaimer:This test was developed and its performance characteristics determinedby [facility]'s Pathology and Laboratory Medicine Department. Ithas not been cleared or approved by the FDA. [facility] is regulated under CLIAas certified to perform high-complexity testing. This test is used forclinical purposes. It should not be regarded as investigational or forresearch.Testing and interpretation performed at [facility], [address] [place] [address]. [facility] Number: [id number] reviewed by Maria Alejandra Vu, PhD, [facility] Performed By: #### D UPNL1 ####CLARITY ILLUMINA LIMSCLIA [id number] [address] OF [facility] Flexible sigmoidoscopy study on 07-22-2024 A30 Gastrointestinal Endoscopy Patient Name: Brian Oneal Procedure Date: 07/22/2024 2:05 PM Date of : 1950 Admit Type: Ambulatory Age: 74 Gender: Male Note Status: Finalized Attending MD: Micha Avina MD, [id number] Procedure: Flexible Sigmoidoscopy Indications: Rectal cancer Providers: Micha Avina MD Patient Profile: This is a 74 year old male. Refer to note in patient chart for documentation of history and physical. Previously obtained MRI showed a mass in the rectum. Referring Physician: Medicines: None Complications: No immediate complications. Requesting Provider: Procedure: Pre-Anesthesia Assessment: - ASA Grade Assessment: III - A patient with severe systemic disease. - After reviewing the risks and benefits, the patient was deemed in satisfactory condition to undergo the procedure. - Prior to the procedure, no anesthesia or sedation was planned. After obtaining informed consent, the scope was passed under direct vision. The was introduced through the anus and advanced to the rectosigmoid junction. The flexible sigmoidoscopy was accomplished without difficulty. The patient tolerated the procedure well. The quality of the bowel preparation was poor. Moderate Sedation: No sedation was administered for this procedure. Findings: The digital rectal exam findings include palpable rectal mass. Pertinent negatives include normal sphincter tone. An infiltrative non-obstructing medium-sized mass was found in the distal rectum. The mass was partially circumferential (involving one-third of the lumen circumference). The mass measured three cm in length. In addition, its diameter measured thirty mm. Oozing was present. Impression: - Preparation of the colon was poor. - Palpable rectal mass found on digital rectal exam. - Malignant tumor in the distal rectum. - No specimens collected. - Rectal mass 3 to 4 cm from the anal verge. Mass ~1/3rd circumference in the left anterior position. Fixed at top of sphinct. Estimated Blood Loss: Estimated blood loss: none. Recommendation: - Use fiber, for example Citrucel, Fibercon, Konsyl or Metamucil. - Discharge patient to home (ambulatory). - Resume previous diet today. - Return to my office as previously scheduled. Attending Participation: I personally performed the entire procedure. Scope In: Scope Out: MD Micha Dowell MD 07/22/2024 3:35:58 PM This report has been signed electronically. Number of Addenda: 0 Note Initiated On: 07/22/2024 2:05 PM [employer]ATION [facility] Radiology Study observation (narrative) [facility] UA DIP, URINE (POC)on 2023 BILIRUBIN UA (POCT) Negative Negative [facility] CLARITY UA (POCT) [facility] COLOR UA (POCT) Yellow [facility] GLUCOSE UA (POCT) Negative Negative mg/dL [facility] Hemoglobin Ql (U) Negative Negative [facility] KETONE UA (POCT) Negative Negative mg/dL [facility] LEUKOCYTES UA (POCT) Negative Negative [facility] NITRITE UA (POCT) Negative Negative [facility] PH UA (POCT) 6.5 4.5 - 8.0 [facility] Protein Ql (U) Negative Negative mg/dL [facility] SPECIFIC GRAVITY UA (POCT) 1.015 1.005 - 1.030 [facility] UROBILINOGEN UA (POCT) 0.2 Normal E.U./dL [facility] Location:[facility] amanda, [address] [place] [address], [address] [place] [address] POINT OF CARE [facility] CBC panel Auto (Bld)on 07-03 Erythrocyte distribution width (RBC) [Ratio] 15.7 % High 11.5-15.0 [facility] Comment on above: Order Comment: Speci men Type: BLOOD SPECIMENOrdering Facility: [facility] Address: [address] [place] [address] Performed By: #### 5 8410-2 ####[facility] LABCLIA [id number] [place] [address] [place] Hematocrit (Bld) [Volume fraction] 31.6 % Low 39.0-51.0 [facility] Comment on above: Order Comment: Speci men Type: BLOOD SPECIMENOrdering Facility: [facility] Address: [address] [place] [address] Performed By: #### 5 8410-2 ####[facility] LABCLIA [id number] [place] [address] [place] Hemoglobin (Bld) [Mass/Vol] 9.4 g/dL Low 13.0-17.0 [facility] Comment on above: Order Comment: Speci men Type: BLOOD SPECIMENOrdering Facility: [facility] Address: [address] [place] [address] Performed By: #### 5 8410-2 ####[facility] LABCLIA [id number] [place] [address] [place] MCH (RBC) [Entitic mass] 28.9 pg Normal 26.0-34.0 [facility] Comment on above: Order Comment: Speci men Type: BLOOD SPECIMENOrdering Facility: [facility] Address: [address] [place] [address] Performed By: #### 5 8410-2 ####[facility] LABIA [id number] [place] [address] [place] MCHC (RBC) [Mass/Vol] 29.7 g/dL Low 30.5-36.0 [facility] Comment on above: Order Comment: Speci men Type: BLOOD SPECIMENOrdering Facility: [facility] Address: [address] [place] [address] Performed By: #### 5 8410-2 ####[facility] LABCLIA [id number] [place] [address] [place] MCV (RBC) [Entitic vol] 97.2 fL Normal 80.0-100.0 [facility] Comment on above: Order Comment: Speci men Type: BLOOD SPECIMENOrdering Facility: [facility] Address: [address] [place] [address] Performed By: #### 5 8410-2 ####[facility] LABIA [id number] [place] [address] [place] Nucleated RBC (Bld) [#/Vol] 10*3/uL Normal <0.01 [facility] Comment on above: Order Comment: Speci men Type: BLOOD SPECIMENOrdering Facility: [facility] Address: [address] [place] [address] Performed By: #### 5 8410-2 ####[facility] LABIA [id number] [place] [address] [place] Platelet mean volume (Bld) [Entitic vol] 9.5 fL Normal 9.0-12.7 [facility] Comment on above: Order Comment: Speci men Type: BLOOD SPECIMENOrdering Facility: [facility] Address: [address] [place] [address] Performed By: #### 5 8410-2 ####[facility] LABIA [id number] [place] [address] [place] Platelets (Bld) [#/Vol] 394 10*3/uL Normal 150-400 [facility] Comment on above: Order Comment: Speci men Type: BLOOD SPECIMENOrdering Facility: [facility] Address: [address] [place] [address] Performed By: #### 5 8410-2 ####[facility] LABIA [id number] [place] [address] [place] RBC (Bld) [#/Vol] 3.25 10*6/uL Low 4.20-6.00 [facility] Comment on above: Order Comment: Speci men Type: BLOOD SPECIMENOrdering Facility: [facility] Address: [address] [place] [address] Performed By: #### 5 8410-2 ####[facility] LABCLIA [id number] [address] [address] [place] WBC (Bld) [#/Vol] 8.70 10*3/uL Normal 3.70-11.00 [facility] Comment on above: Order Comment: Speci men Type: BLOOD SPECIMENOrdering Facility: [facility] Address: [address] [place] [address] Performed By: #### 5 8410-2 ####[facility] LABCLIA [id number] [place] [address] [place] CNOVon 07-03-2024 CNOV Normal [facility] metabolic 2000 panelon 07-03-2024 Albumin [Mass/Vol] 3.3 g/dL Low 3.9-4.9 [facility] Comment on above: Order Comment: Speci men Type: BLOOD SPECIMENOrdering Facility: [facility] Address: [address] [place] [address] Performed By: #### 2 4323-8 ####[facility] LABCLIA [id number] [place] [address] [place] ALP [Catalytic activity/Vol] 53 U/L Normal 38-113 [facility] Comment on above: Order Comment: Speci men Type: BLOOD SPECIMENOrdering Facility: [facility] Address: [address] [place], [place] [address] Performed By: #### 2 4323-8 ####[facility] LABCLIA [id number] [place] [id number] [place] ALT [Catalytic activity/Vol] 22 U/L Normal 10-54 [facility] Comment on above: Order Comment: Speci men Type: BLOOD SPECIMENOrdering Facility: [facility] Address: [address] [place], [place] [address] Performed By: #### 2 4323-8 ####[facility] LABCLIA [id number] [place] [address] [place] Anion gap [Moles/Vol] 10 mmol/L Normal 8-15 [facility] Comment on above: Order Comment: Speci men Type: BLOOD SPECIMENOrdering Facility: [facility] Address: [address] [place] [address] Performed By: #### 2 4323-8 ####[facility] LABCLIA [id number] [place] [address] [place] AST [Catalytic activity/Vol] 19 U/L Normal 14-40 [facility] Comment on above: Order Comment: Speci men Type: BLOOD SPECIMENOrdering Facility: [facility] Address: [address] [place] [address] Performed By: #### 2 4323-8 ####[facility] LABCLIA [id number] [place] [address] [place] Bilirubin [Mass/Vol] 0.7 mg/dL Normal 0.2-1.3 [facility] Comment on above: Order Comment: Speci men Type: BLOOD SPECIMENOrdering Facility: [facility] Address: [address] [place] [address] Performed By: #### 2 4323-8 ####[facility] LABCLIA [id number] [place] [address] [place] Calcium [Mass/Vol] 9.1 mg/dL Normal 8.5-10.2 [facility] Comment on above: Order Comment: Speci men Type: BLOOD SPECIMENOrdering Facility: [facility] Address: [address] [place] [address] Performed By: #### 2 4323-8 ####[facility] LABCLIA [id number] [place] [address] [place] Chloride [Moles/Vol] 104 mmol/L Normal 98-107 [facility] Comment on above: Order Comment: Speci men Type: BLOOD SPECIMENOrdering Facility: [facility] Address: [address] [place] [address] Performed By: #### 2 4323-8 ####[facility] LABIA [id number] [place] [address] [place] CO2 [Moles/Vol] 25 mmol/L Normal 22-30 [facility] Comment on above: Order Comment: Speci men Type: BLOOD SPECIMENOrdering Facility: [facility] Address: [address] [place] [address] Performed By: #### 2 4323-8 ####[facility] LABCLIA [id number] [place] [address] [place] Creatinine [Mass/Vol] 1.39 mg/dL High 0.73-1.22 [facility] Comment on above: Order Comment: Speci men Type: BLOOD SPECIMENOrdering Facility: [facility] Address: [address] [place] [address] Performed By: #### 2 4323-8 ####[facility] LABIA [id number] [place] [address] [place] Creatinine and Glomerular filtration rate.predicted panel (S/P/Bld) 53 mL/min/1.73m??? Low >=60 [facility] Comment on above: Order Comment: Speci men Type: BLOOD SPECIMENOrdering Facility: [facility] Address: [address] [place] [address] Result Comment: Annalisa mated Glomerular Filtration Rate (eGFR) is calculated using the 2020 CKD-EPI creatinine equation. This equation utilizes serum creatinine, sex, and age as parameters. The creatinine assay has traceable calibration to isotope dilution-mass spectrometry. Refer to KDIGO guidelines for clinical interpretation. In patients with unstable renal function, e.g. those with acute kidney injury, the eGFR may not accurately reflect actual GFR. Performed By: #### 2 4323-8 ####[facility] LABCLIA [id number] [place] [address] [place] Glucose [Mass/Vol] 92 mg/dL Normal 74-99 [facility] Comment on above: Order Comment: Speci men Type: BLOOD SPECIMENOrdering Facility: [facility] Address: [address] [place] [address] Result Comment: The [place] Diabetes Association (ADA) provides guidance for cutoff values for fasting glucose and random glucose. The ADA defines fasting as no caloric intake for at least 8 hours. Fasting plasma glucose results between 100 to 125 mg/dL indicate increased risk for diabetes (prediabetes).Fasting plasma glucose results greater than or equal to 126 mg/dL meet the criteria for diagnosis of diabetes. In the absence of unequivocal hyperglycemia, results should be confirmed by repeat testing. In a patient with classic symptoms of hyperglycemia or hyperglycemic crisis, random plasma glucose results greater than or equal to 200 mg/dL meet the criteria for diagnosis of diabetes.Reference: Standards of Medical Care in Diabetes 2016, [place] Diabetes Association. Diabetes Care. 2016.39(Suppl 1). Performed By: #### 2 4323-8 ####[facility] LABCLIA [id number] [place] [address] [place] Potassium [Moles/Vol] 5.1 mmol/L Normal 3.7-5.1 [facility] Comment on above: Order Comment: Speci men Type: BLOOD SPECIMENOrdering Facility: [facility] Address: [address] [place] [address] Performed By: #### 2 4323-8 ####[facility] LABCLIA [id number] [place] [address] [place] Protein [Mass/Vol] 6.0 g/dL Low 6.3-8.0 [facility] Comment on above: Order Comment: Speci men Type: BLOOD SPECIMENOrdering Facility: [facility] Address: [address] [place] [address] Performed By: #### 2 4323-8 ####[facility] LABCLIA [id number] [place] [address] [place] Sodium [Moles/Vol] 139 mmol/L Normal 136-144 [facility] Comment on above: Order Comment: Speci men Type: BLOOD SPECIMENOrdering Facility: [facility] Address: [address] [place] [address] Performed By: #### 2 4323-8 ####[facility] LABCLIA [id number] [address] [address] [place] Urea nitrogen [Mass/Vol] 22 mg/dL Normal 9-24 [facility] Comment on above: Order Comment: Speci men Type: BLOOD SPECIMENOrdering Facility: [facility] Address: [address] [place] [address] Performed By: #### 2 4323-8 ####[facility] LABCLIA [id number] [place] [id number] [place] ECG COMPLETEon 07-03-2024 ECG COMPLETE Normal [facility] XR CHEST 2V FRONTAL/LATon XR CHEST 2V FRONTAL/LAT Normal [facility] XR Chest PA and Lateralon IMPRESSION: See result. Retail Branch Manager: PSCB Transcribe Date/Time: Jul 03 2024 2:22P Dictated by : EMILY BRAVO MD This examination was interpreted and the report reviewed and electronically signed by: EMILY BRAVO MD on Jul 03 2024 2:23PM [facility] DIVISION OF RADIOLOGY * * *Final Report* * * DATE OF EXAM: Jul 03 2024 2:18PM [id number] - XR CHEST 2V FRONTAL/LAT / PROCEDURE REASON: Surgery follow-up * * * * Physician Interpretation * * * * EXAMINATION: CHEST RADIOGRAPH (2 VIEW FRONTAL & LATERAL) CLINICAL HISTORY: Surgery follow-up MQ: XC2_6 EXAM DATE/TIME: 07/03/2024 2:18 PM COMPARISON: 06/24/2024 RESULT: Lines, tubes, and devices: Stable left transvenous AICD. Lungs and pleura: Interval improvement in left lower lung opacities. Improving pulmonary edema. Small bilateral pleural effusions are present with adjacent atelectasis, more on the left. No pneumothorax. Cardiomediastinal silhouette: Stable cardiomediastinal silhouette. Bones and soft tissues: Unremarkable. DIVISION OF RADIOLOGY Provider, Mason moy [place] - 07/03/2024 * * *Final Report* * * DATE OF EXAM: Jul 03 2024 2:18PM [id number] - XR CHEST 2V FRONTAL/LAT / PROCEDURE REASON: Surgery follow-up * * * * Physician Interpretation * * * * EXAMINATION: CHEST RADIOGRAPH (2 VIEW FRONTAL & LATERAL) CLINICAL HISTORY: Surgery follow-up MQ: XC2_6 EXAM DATE/TIME: 07/03/2024 2:18 PM COMPARISON: 06/24/2024 RESULT: Lines, tubes, and devices: Stable left transvenous AICD. Lungs and pleura: Interval improvement in left lower lung opacities. Improving pulmonary edema. Small bilateral pleural effusions are present with adjacent atelectasis, more on the left. No pneumothorax. Cardiomediastinal silhouette: Stable cardiomediastinal silhouette. Bones and soft tissues: Unremarkable. IMPRESSION IMPRESSION: See result. Retail Branch Manager: PSCRiana Transcribe Date/Time: Jul 03 2024 2:22P Dictated by : EIMLY BRAVO MD This examination was interpreted and the report reviewed and electronically signed by: EMILY BRAVO MD on Jul 03 2024 2:23PM EST [facility] Radiology Study observation (narrative) [facility] XR Chest PA and LateralOrder ed By: Ccf Provider on 07-03-2024 [facility] ALLIED HEALTHon 06-26-2024 ALLIED HEALTH Normal [facility] CASE MANAGEMon 06-26-2024 CASE MANAGEM Normal [facility] CBC panel Auto (Bld)on 06-26 Erythrocyte distribution width (RBC) [Ratio] 15.9 % High 11.5-15.0 [facility] Comment on above: Order Comment: Speci men Type: BLOOD SPECIMENOrdering Facility: [facility] Address: [address] [place] [address] Performed By: #### 5 8410-2 ####[facility] LABCLIA [id number] [place] [address] [place] Hematocrit (Bld) [Volume fraction] 28.7 % Low 39.0-51.0 [facility] Comment on above: Order Comment: Speci men Type: BLOOD SPECIMENOrdering Facility: [facility] Address: [address] [place] [address] Performed By: #### 5 8410-2 ####[facility] LABIA [id number] [place] [address] [place] Hemoglobin (Bld) [Mass/Vol] 9.0 g/dL Low 13.0-17.0 [facility] Comment on above: Order Comment: Speci men Type: BLOOD SPECIMENOrdering Facility: [facility] Address: [address] [place] [address] Performed By: #### 5 8410-2 ####[facility] [id number] [place] [address] [place] MCH (RBC) [Entitic mass] 29.9 pg Normal 26.0-34.0 [facility] Comment on above: Order Comment: Speci men Type: BLOOD SPECIMENOrdering Facility: [facility] Address: [address] [place] [address] Performed By: #### 5 8410-2 ####[facility] LABIA [id number] [place] [address] [place] MCHC (RBC) [Mass/Vol] 31.4 g/dL Normal 30.5-36.0 [facility] Comment on above: Order Comment: Speci men Type: BLOOD SPECIMENOrdering Facility: [facility] Address: [address] [place] [address] Performed By: #### 5 8410-2 ####[facility] LABIA [id number] [place] [address] [place] MCV (RBC) [Entitic vol] 95.3 fL Normal 80.0-100.0 [facility] Comment on above: Order Comment: Speci men Type: BLOOD SPECIMENOrdering Facility: [facility] Address: [address] [place] [address] Performed By: #### 5 8410-2 ####[facility] LABCLIA [id number] [place] [address] [place] Nucleated RBC (Bld) [#/Vol] 0.03 10*3/uL High <0.01 [facility] Comment on above: Order Comment: Speci men Type: BLOOD SPECIMENOrdering Facility: [facility] Address: [address] [place] [address] Performed By: #### 5 8410-2 ####[facility] LABCLIA [id number] [place] [address] [place] Platelet mean volume (Bld) [Entitic vol] 10.5 fL Normal 9.0-12.7 [facility] Comment on above: Order Comment: Speci men Type: BLOOD SPECIMENOrdering Facility: [facility] Address: [address] [place] [address] Performed By: #### 5 8410-2 ####[facility] LABCLIA [id number] [place] [address] [place] Platelets (Bld) [#/Vol] 233 10*3/uL Normal 150-400 [facility] Comment on above: Order Comment: Speci men Type: BLOOD SPECIMENOrdering Facility: [facility] Address: [address] [place] [address] Performed By: #### 5 8410-2 ####[facility] LABCLIA [id number] [place] [address] [place] RBC (Bld) [#/Vol] 3.01 10*6/uL Low 4.20-6.00 [facility] Comment on above: Order Comment: Speci men Type: BLOOD SPECIMENOrdering Facility: [facility] Address: [address] [place] [address] Performed By: #### 5 8410-2 ####[facility] LABCLIA [id number] [place] [address] [place] WBC (Bld) [#/Vol] 10.90 10*3/uL Normal 3.70-11.00 [facility] Comment on above: Order Comment: Speci men Type: BLOOD SPECIMENOrdering Facility: [facility] Address: [address] [place] [address] Performed By: #### 5 8410-2 ####[facility] LABIA [id number] [place] [address] [place] Comprehensive metabolic 2000 panelon 06-26-2024 Albumin [Mass/Vol] 3.0 g/dL Low 3.9-4.9 [facility] Comment on above: Order Comment: Speci men Type: BLOOD SPECIMENOrdering Facility: [facility] Address: [address] [place] [address] Performed By: #### 2 4323-8 ####[facility] LABIA [id number] [place] [address] [place] ALP [Catalytic activity/Vol] 45 U/L Normal 38-113 [facility] Comment on above: Order Comment: Speci men Type: BLOOD SPECIMENOrdering Facility: [facility] Address: [address] [place] [address] Performed By: #### 2 4323-8 ####[facility] LABIA [id number] [place] [address] [place] ALT [Catalytic activity/Vol] 25 U/L Normal 10-54 [facility] Comment on above: Order Comment: Speci men Type: BLOOD SPECIMENOrdering Facility: [facility] Address: [address] [place] [address] Performed By: #### 2 4323-8 ####[facility] LABIA [id number] [place] [id number] [place] Anion gap [Moles/Vol] 10 mmol/L Normal 8-15 [facility] Comment on above: Order Comment: Speci men Type: BLOOD SPECIMENOrdering Facility: [facility] Address: [address] [place] [address] Performed By: #### 2 4323-8 ####[facility] LABCLIA [id number] [place] [address] [place] AST [Catalytic activity/Vol] 28 U/L Normal 14-40 [facility] Comment on above: Order Comment: Speci men Type: BLOOD SPECIMENOrdering Facility: [facility] Address: [address] [place] [address] Performed By: #### 2 4323-8 ####[facility] LABIA [id number] [place] [address] [place] Bilirubin [Mass/Vol] 0.8 mg/dL Normal 0.2-1.3 [facility] Comment on above: Order Comment: Speci men Type: BLOOD SPECIMENOrdering Facility: [facility] Address: [address] [place] [address] Performed By: #### 2 4323-8 ####[facility] LABIA [id number] [place] [address] [place] Calcium [Mass/Vol] 8.4 mg/dL Low 8.5-10.2 [facility] Comment on above: Order Comment: Speci men Type: BLOOD SPECIMENOrdering Facility: [facility] Address: [address] [place] [address] Performed By: #### 2 4323-8 ####[facility] LABIA [id number] [place] [address] [place] Chloride [Moles/Vol] 101 mmol/L Normal 98-107 [facility] Comment on above: Order Comment: Speci men Type: BLOOD SPECIMENOrdering Facility: [facility] Address: [address] [place] [address] Performed By: #### 2 4323-8 ####[facility] LABCLIA [id number] [place] [address] [place] CO2 [Moles/Vol] 28 mmol/L Normal 22-30 [facility] Comment on above: Order Comment: Speci men Type: BLOOD SPECIMENOrdering Facility: [facility] Address: [address] [place] [address] Performed By: #### 2 4323-8 ####[facility] LABCLIA [id number] [place] [address] [place] Creatinine [Mass/Vol] 1.46 mg/dL High 0.73-1.22 [facility] Comment on above: Order Comment: Speci men Type: BLOOD SPECIMENOrdering Facility: [facility] Address: [address] [place] [address] Performed By: #### 2 4323-8 ####[facility] LABIA [id number] [place] [address] [place] Creatinine and Glomerular filtration rate.predicted panel (S/P/Bld) 50 mL/min/1.73m??? Low >=60 [facility] Comment on above: Order Comment: Speci men Type: BLOOD SPECIMENOrdering Facility: [facility] Address: [address] [place] [address] Result Comment: Annalisa mated Glomerular Filtration Rate (eGFR) is calculated using the 2020 CKD-EPI creatinine equation. This equation utilizes serum creatinine, sex, and age as parameters. The creatinine assay has traceable calibration to isotope dilution-mass spectrometry. Refer to KDIGO guidelines for clinical interpretation. In patients with unstable renal function, e.g. those with acute kidney injury, the eGFR may not accurately reflect actual GFR. Performed By: #### 2 4323-8 ####[facility] LABIA [id number] [place] [address] [place] Glucose [Mass/Vol] 107 mg/dL High 74-99 [facility] Comment on above: Order Comment: Speci men Type: BLOOD SPECIMENOrdering Facility: [facility] Address: [address] [place] [address] Result Comment: The [place] [employer] (ADA) provides guidance for cutoff values for fasting glucose and random glucose. The ADA defines fasting as no caloric intake for at least 8 hours. Fasting plasma glucose results between 100 to 125 mg/dL indicate increased risk for diabetes (prediabetes).Fasting plasma glucose results greater than or equal to 126 mg/dL meet the criteria for diagnosis of diabetes. In the absence of unequivocal hyperglycemia, results should be confirmed by repeat testing. In a patient with classic symptoms of hyperglycemia or hyperglycemic crisis, random plasma glucose results greater than or equal to 200 mg/dL meet the criteria for diagnosis of diabetes.Reference: Standards of Medical Care in Diabetes 2016, [place] [employer]. Diabetes Care. 2016.39(Suppl 1). Performed By: #### 2 4323-8 ####[facility] LABCLIA [id number] [place] [address] [place] Potassium [Moles/Vol] 4.2 mmol/L Normal 3.7-5.1 [facility] Comment on above: Order Comment: Speci men Type: BLOOD SPECIMENOrdering Facility: [facility] Address: [address] [place] [address] Performed By: #### 2 4323-8 ####[facility] LABCLIA [id number] [place] [address] [place] Protein [Mass/Vol] 5.3 g/dL Low 6.3-8.0 [facility] Comment on above: Order Comment: Speci men Type: BLOOD SPECIMENOrdering Facility: [facility] Address: [address] [place] [address] Performed By: #### 2 4323-8 ####[facility] LABCLIA [id number] [place] [address] [place] Sodium [Moles/Vol] 139 mmol/L Normal 136-144 [facility] Comment on above: Order Comment: Speci men Type: BLOOD SPECIMENOrdering Facility: [facility] Address: [address] [place] [address] Performed By: #### 2 4323-8 ####[facility] LABCLIA [id number] [place] [address] [place] Urea nitrogen [Mass/Vol] 25 mg/dL High 9-24 [facility] Comment on above: Order Comment: Speci men Type: BLOOD SPECIMENOrdering Facility: [facility] Address: [address] [place] [address] Performed By: #### 2 4323-8 ####[facility] LABCLIA [id number] [place] [address] [place] XR ABDOMEN 1V SUPINEon 06-26 XR ABDOMEN 1V SUPINE [facility] ALLIED HEALTHon 06-25-2024 ALLIED HEALTH Normal [facility] CASE MANAGEMon 06-25-2024 CASE MANAGEM Normal [facility] CBC panel Auto (Bld)on 06-25 Erythrocyte distribution width (RBC) [Ratio] 15.7 % High 11.5-15.0 [facility] Comment on above: Order Comment: Speci men Type: BLOOD SPECIMENOrdering Facility: [facility] Address: [address] [place] [address] Performed By: #### 5 8410-2 ####[facility] LABIA [id number] [place] [id number] [place] Hematocrit (Bld) [Volume fraction] 29.0 % Low 39.0-51.0 [facility] Comment on above: Order Comment: Speci men Type: BLOOD SPECIMENOrdering Facility: [facility] Address: [address] [place] [address] Performed By: #### 5 8410-2 ####[facility] LABCLIA [id number] [place] [id number] [place] Hemoglobin (Bld) [Mass/Vol] 9.1 g/dL Low 13.0-17.0 [facility] Comment on above: Order Comment: Speci men Type: BLOOD SPECIMENOrdering Facility: [facility] Address: [address] [place] [address] Performed By: #### 5 8410-2 ####[facility] [id number] [place] [address] [place] MCH (RBC) [Entitic mass] 29.5 pg Normal 26.0-34.0 [facility] Comment on above: Order Comment: Speci men Type: BLOOD SPECIMENOrdering Facility: [facility] Address: [address] [place] [address] Performed By: #### 5 8410-2 ####[facility] [id number] [place] [address] [place] MCHC (RBC) [Mass/Vol] 31.4 g/dL Normal 30.5-36.0 [facility] Comment on above: Order Comment: Speci men Type: BLOOD SPECIMENOrdering Facility: [facility] Address: [address] [place] [address] Performed By: #### 5 8410-2 ####[facility] [id number] [place] [address] [place] MCV (RBC) [Entitic vol] 94.2 fL Normal 80.0-100.0 [facility] Comment on above: Order Comment: Speci men Type: BLOOD SPECIMENOrdering Facility: [facility] Address: [address] [place] [address] Performed By: #### 5 8410-2 ####[facility] [id number] [place] [address] [place] Nucleated RBC (Bld) [#/Vol] 0.04 10*3/uL High <0.01 [facility] Comment on above: Order Comment: Speci men Type: BLOOD SPECIMENOrdering Facility: [facility] Address: [address] [place] [address] Performed By: #### 5 8410-2 ####[facility] LABCLIA [id number] [address] [address] [place] Platelet mean volume (Bld) [Entitic vol] 10.5 fL Normal 9.0-12.7 [facility] Comment on above: Order Comment: Speci men Type: BLOOD SPECIMENOrdering Facility: [facility] Address: [address] [place] [address] Performed By: #### 5 8410-2 ####[facility] LABCLIA [id number] [place] [address] [place] Platelets (Bld) [#/Vol] 202 10*3/uL Normal 150-400 [facility] Comment on above: Order Comment: Speci men Type: BLOOD SPECIMENOrdering Facility: [facility] Address: [address] [place] [address] Performed By: #### 5 8410-2 ####[facility] LABCLIA [id number] [place] [address] [place] RBC (Bld) [#/Vol] 3.08 10*6/uL Low 4.20-6.00 [facility] Comment on above: Order Comment: Speci men Type: BLOOD SPECIMENOrdering Facility: [facility] Address: [address] [place] [address] Performed By: #### 5 8410-2 ####[facility] LABIA [id number] [place] [address] [place] WBC (Bld) [#/Vol] 10.82 10*3/uL Normal 3.70-11.00 [facility] Comment on above: Order Comment: Speci men Type: BLOOD SPECIMENOrdering Facility: [facility] Address: [address] [place] [address] Performed By: #### 5 8410-2 ####[facility] LABIA [id number] [place] [address] [place] Comprehensive metabolic 2000 panelon 06-25-2024 Albumin [Mass/Vol] 3.1 g/dL Low 3.9-4.9 [facility] Comment on above: Order Comment: Speci men Type: BLOOD SPECIMENOrdering Facility: [facility] Address: [address] [place] [address] Performed By: #### 2 4323-8 ####[facility] LABCLIA [id number] [place] [address] [place] ALP [Catalytic activity/Vol] 46 U/L Normal 38-113 [facility] Comment on above: Order Comment: Speci men Type: BLOOD SPECIMENOrdering Facility: [facility] Address: [address] [place] [address] Performed By: #### 2 4323-8 ####[facility] LABCLIA [id number] [place] [address] [place] ALT [Catalytic activity/Vol] 22 U/L Normal 10-54 [facility] Comment on above: Order Comment: Speci men Type: BLOOD SPECIMENOrdering Facility: [facility] Address: [address] [place] [address] Performed By: #### 2 4323-8 ####[facility] LABCLIA [id number] [place] [address] [place] Anion gap [Moles/Vol] 10 mmol/L Normal 8-15 [facility] Comment on above: Order Comment: Speci men Type: BLOOD SPECIMENOrdering Facility: [facility] Address: [address] [place] [address] Performed By: #### 2 4323-8 ####[facility] LABCLIA [id number] [place] [address] [place] AST [Catalytic activity/Vol] 31 U/L Normal 14-40 [facility] Comment on above: Order Comment: Speci men Type: BLOOD SPECIMENOrdering Facility: [facility] Address: [address] [place] [id number] Performed By: #### 2 4323-8 ####[facility] LABCLIA [id number] [place] [address] [place] Bilirubin [Mass/Vol] 0.8 mg/dL Normal 0.2-1.3 [facility] Comment on above: Order Comment: Speci men Type: BLOOD SPECIMENOrdering Facility: [facility] Address: [address] [place], [place] [address] Performed By: #### 2 4323-8 ####[facility] LABCLIA [id number] [place] [address] [place] Calcium [Mass/Vol] 8.7 mg/dL Normal 8.5-10.2 [facility] Comment on above: Order Comment: Speci men Type: BLOOD SPECIMENOrdering Facility: [facility] Address: [address] [place] [address] Performed By: #### 2 4323-8 ####[facility] LABCLIA [id number] [place] [address] [place] Chloride [Moles/Vol] 100 mmol/L Normal 98-107 [facility] Comment on above: Order Comment: Speci men Type: BLOOD SPECIMENOrdering Facility: [facility] Address: [address] [place], [place] [address] Performed By: #### 2 4323-8 ####[facility] LABCLIA [id number] [place] [id number] [place] CO2 [Moles/Vol] 28 mmol/L Normal 22-30 [facility] Comment on above: Order Comment: Speci men Type: BLOOD SPECIMENOrdering Facility: [facility] Address: [address] [place], [place] [address] Performed By: #### 2 4323-8 ####[facility] LABCLIA [id number] [place] [address] [place] Creatinine [Mass/Vol] 1.47 mg/dL High 0.73-1.22 [facility] Comment on above: Order Comment: Bobby villalpando Type: BLOOD SPECIMENOrdering Facility: [facility] Address: [address] [place] [address] Performed By: #### 2 4323-8 ####[facility] LABCLIA [id number] [place] [address] [place] Creatinine and Glomerular filtration rate.predicted panel (S/P/Bld) 49 mL/min/1.73m??? Low >=60 [facility] Comment on above: Order Comment: Bobby villalpando Type: BLOOD SPECIMENOrdering Facility: [facility] Address: [address] [place] [address] Result Comment: Annalisa mated Glomerular Filtration Rate (eGFR) is calculated using the 2020 CKD-EPI creatinine equation. This equation utilizes serum creatinine, sex, and age as parameters. The creatinine assay has traceable calibration to isotope dilution-mass spectrometry. Refer to KDIGO guidelines for clinical interpretation. In patients with unstable renal function, e.g. those with acute kidney injury, the eGFR may not accurately reflect actual GFR. Performed By: #### 2 4323-8 ####[facility] LABCLIA [id number] [place] [address] [place] Glucose [Mass/Vol] 161 mg/dL High 74-99 [facility] Comment on above: Order Comment: Bobby villalpando Type: BLOOD SPECIMENOrdering Facility: [facility] Address: [address] [place] [address] Result Comment: The [place] [employer] (ADA) provides guidance for cutoff values for fasting glucose and random glucose. The ADA defines fasting as no caloric intake for at least 8 hours. Fasting plasma glucose results between 100 to 125 mg/dL indicate increased risk for diabetes (prediabetes).Fasting plasma glucose results greater than or equal to 126 mg/dL meet the criteria for diagnosis of diabetes. In the absence of unequivocal hyperglycemia, results should be confirmed by repeat testing. In a patient with classic symptoms of hyperglycemia or hyperglycemic crisis, random plasma glucose results greater than or equal to 200 mg/dL meet the criteria for diagnosis of diabetes.Reference: Standards of Medical Care in Diabetes 2016, [place] [employer]. Diabetes Care. 2016.39(Suppl 1). Performed By: #### 2 4323-8 ####[facility] LABCLIA [id number] [place] [address] [place] Potassium [Moles/Vol] 3.8 mmol/L Normal 3.7-5.1 [facility] Comment on above: Order Comment: Speci men Type: BLOOD SPECIMENOrdering Facility: [facility] Address: [address] [place] [address] Performed By: #### 2 4323-8 ####[facility] LABCLIA [id number] [place] [address] [place] Protein [Mass/Vol] 5.5 g/dL Low 6.3-8.0 [facility] Comment on above: Order Comment: Speci men Type: BLOOD SPECIMENOrdering Facility: [facility] Address: [address] [place] [address] Performed By: #### 2 4323-8 ####[facility] LABCLIA [id number] [place] [address] [place] Sodium [Moles/Vol] 138 mmol/L Normal 136-144 [facility] Comment on above: Order Comment: Speci men Type: BLOOD SPECIMENOrdering Facility: [facility] Address: [address] [place] [address] Performed By: #### 2 4323-8 ####[facility] LABCLIA [id number] [place] [id number] [place] Urea nitrogen [Mass/Vol] 30 mg/dL High 9-24 [facility] Comment on above: Order Comment: Speci men Type: BLOOD SPECIMENOrdering Facility: [facility] Address: [address] [place] [address] Performed By: #### 2 4323-8 ####[facility] LABCLIA [id number] [place] [address] [place] THERAPY NTon 06-25-2024 THERAPY NT Normal [facility] ALLIED HEALTHon 06-24-2024 ALLIED HEALTH Normal [facility] CBC panel Auto (Bld)on 06-24 Erythrocyte distribution width (RBC) [Ratio] 15.5 % High 11.5-15.0 [facility] Comment on above: Order Comment: Speci men Type: BLOOD SPECIMENOrdering Facility: [facility] Address: [address] [place] [address] Performed By: #### 5 8410-2 ####[facility] [id number] [place] [address] [place] Hematocrit (Bld) [Volume fraction] 27.0 % Low 39.0-51.0 [facility] Comment on above: Order Comment: Speci men Type: BLOOD SPECIMENOrdering Facility: [facility] Address: [address] [place] [address] Performed By: #### 5 8410-2 ####[facility] LABIA [id number] [place] [address] [place] Hemoglobin (Bld) [Mass/Vol] 8.5 g/dL Low 13.0-17.0 [facility] Comment on above: Order Comment: Speci men Type: BLOOD SPECIMENOrdering Facility: [facility] Address: [address] [place] [address] Performed By: #### 5 8410-2 ####[facility] LABIA [id number] [place] [address] [place] MCH (RBC) [Entitic mass] 29.9 pg Normal 26.0-34.0 [facility] Comment on above: Order Comment: Speci men Type: BLOOD SPECIMENOrdering Facility: [facility] Address: [address] [place] [address] Performed By: #### 5 8410-2 ####[facility] LABCLIA [id number] [place] [address] [place] MCHC (RBC) [Mass/Vol] 31.5 g/dL Normal 30.5-36.0 [facility] Comment on above: Order Comment: Speci men Type: BLOOD SPECIMENOrdering Facility: [facility] Address: [address] [place] [address] Performed By: #### 5 8410-2 ####[facility] [id number] [place] [address] [place] MCV (RBC) [Entitic vol] 95.1 fL Normal 80.0-100.0 [facility] Comment on above: Order Comment: Speci men Type: BLOOD SPECIMENOrdering Facility: [facility] Address: [address] [place] [address] Performed By: #### 5 8410-2 ####[facility] [id number] [place] [address] [place] Nucleated RBC (Bld) [#/Vol] 0.08 10*3/uL High <0.01 [facility] Comment on above: Order Comment: Speci men Type: BLOOD SPECIMENOrdering Facility: [facility] Address: [address] [place] [address] Performed By: #### 5 8410-2 ####[facility] [id number] [place] [address] [place] Platelet mean volume (Bld) [Entitic vol] 11.2 fL Normal 9.0-12.7 [facility] Comment on above: Order Comment: Speci men Type: BLOOD SPECIMENOrdering Facility: [facility] Address: [address] [place] [address] Performed By: #### 5 8410-2 ####[facility] [id number] [place] [address] [place] Platelets (Bld) [#/Vol] 163 10*3/uL Normal 150-400 [facility] Comment on above: Order Comment: Speci men Type: BLOOD SPECIMENOrdering Facility: [facility] Address: [address] [place] [address] Performed By: #### 5 8410-2 ####[facility] LABCLIA [id number] [address] [address] [place] RBC (Bld) [#/Vol] 2.84 10*6/uL Low 4.20-6.00 [facility] Comment on above: Order Comment: Speci men Type: BLOOD SPECIMENOrdering Facility: [facility] Address: [address] [place] [address] Performed By: #### 5 8410-2 ####[facility] LABCLIA [id number] [place] [address] [place] WBC (Bld) [#/Vol] 9.83 10*3/uL Normal 3.70-11.00 [facility] Comment on above: Order Comment: Speci men Type: BLOOD SPECIMENOrdering Facility: [facility] Address: [address] [place] [address] Performed By: #### 5 8410-2 ####[facility] LABCLIA [id number] [place] [address] [place] Comprehensive metabolic 2000 panelon 06-24-2024 Albumin [Mass/Vol] 2.9 g/dL Low 3.9-4.9 [facility] Comment on above: Order Comment: Speci men Type: BLOOD SPECIMENOrdering Facility: [facility] Address: [address] [place] [address] Performed By: #### 2 4323-8 ####[facility] LABCLIA [id number] [place] [address] [place] ALP [Catalytic activity/Vol] 43 U/L Normal 38-113 [facility] Comment on above: Order Comment: Speci men Type: BLOOD SPECIMENOrdering Facility: [facility] Address: [address] [id number] Performed By: #### 2 4323-8 ####[facility] LABCLIA [id number] [place] [address] [place] ALT [Catalytic activity/Vol] 16 U/L Normal 10-54 [facility] Comment on above: Order Comment: Speci men Type: BLOOD SPECIMENOrdering Facility: [facility] Address: [address] [place] [address] Performed By: #### 2 4323-8 ####[facility] LABCLIA [id number] [place] [address] [place] Anion gap [Moles/Vol] 10 mmol/L Normal 8-15 [facility] Comment on above: Order Comment: Speci men Type: BLOOD SPECIMENOrdering Facility: [facility] Address: [address] [place] [address] Performed By: #### 2 4323-8 ####[facility] LABCLIA [id number] [place] [address] [place] AST [Catalytic activity/Vol] 25 U/L Normal 14-40 [facility] Comment on above: Order Comment: Speci men Type: BLOOD SPECIMENOrdering Facility: [facility] Address: [address] [place], [place] [address] Performed By: #### 2 4323-8 ####[facility] LABCLIA [id number] [place] [address] [place] Bilirubin [Mass/Vol] 0.7 mg/dL Normal 0.2-1.3 [facility] Comment on above: Order Comment: Speci men Type: BLOOD SPECIMENOrdering Facility: [facility] Address: [address] [place], [place] [address] Performed By: #### 2 4323-8 ####[facility] LABCLIA [id number] [place] [address] [place] Calcium [Mass/Vol] 8.9 mg/dL Normal 8.5-10.2 [facility] Comment on above: Order Comment: Speci men Type: BLOOD SPECIMENOrdering Facility: [facility] Address: [address] [place] [address] Performed By: #### 2 4323-8 ####[facility] LABCLIA [id number] [place] [address] [place] Chloride [Moles/Vol] 98 mmol/L Normal 98-107 [facility] Comment on above: Order Comment: Speci men Type: BLOOD SPECIMENOrdering Facility: [facility] Address: [address] [place] [address] Performed By: #### 2 4323-8 ####[facility] LABCLIA [id number] [place] [address] [place] CO2 [Moles/Vol] 28 mmol/L Normal 22-30 [facility] Comment on above: Order Comment: Speci men Type: BLOOD SPECIMENOrdering Facility: [facility] Address: [address] [place] [address] Performed By: #### 2 4323-8 ####[facility] LABCLIA [id number] [place] [address] [place] Creatinine [Mass/Vol] 1.74 mg/dL High 0.73-1.22 [facility] Comment on above: Order Comment: Speci men Type: BLOOD SPECIMENOrdering Facility: [facility] Address: [address] [place] [address] Performed By: #### 2 4323-8 ####[facility] LABCLIA [id number] [place] [address] [place] Creatinine and Glomerular filtration rate.predicted panel (S/P/Bld) 40 mL/min/1.73m??? Low >=60 [facility] Comment on above: Order Comment: Speci men Type: BLOOD SPECIMENOrdering Facility: [facility] Address: [address] [place] [address] Result Comment: Annalisa mated Glomerular Filtration Rate (eGFR) is calculated using the 2020 CKD-EPI creatinine equation. This equation utilizes serum creatinine, sex, and age as parameters. The creatinine assay has traceable calibration to isotope dilution-mass spectrometry. Refer to KDIGO guidelines for clinical interpretation. In patients with unstable renal function, e.g. those with acute kidney injury, the eGFR may not accurately reflect actual GFR. Performed By: #### 2 4323-8 ####[facility] LABCLIA [id number] [place] [address] [place] Glucose [Mass/Vol] 104 mg/dL High 74-99 [facility] Comment on above: Order Comment: Speci men Type: BLOOD SPECIMENOrdering Facility: [facility] Address: [address] [place] [address] Result Comment: The [place] [employer] (ADA) provides guidance for cutoff values for fasting glucose and random glucose. The ADA defines fasting as no caloric intake for at least 8 hours. Fasting plasma glucose results between 100 to 125 mg/dL indicate increased risk for diabetes (prediabetes).Fasting plasma glucose results greater than or equal to 126 mg/dL meet the criteria for diagnosis of diabetes. In the absence of unequivocal hyperglycemia, results should be confirmed by repeat testing. In a patient with classic symptoms of hyperglycemia or hyperglycemic crisis, random plasma glucose results greater than or equal to 200 mg/dL meet the criteria for diagnosis of diabetes.Reference: Standards of Medical Care in Diabetes 2016, [place] [employer]. Diabetes Care. 2016.39(Suppl 1). Performed By: #### 2 4323-8 ####[facility] LABCLIA [id number] [place] [id number] [place] Potassium [Moles/Vol] 4.3 mmol/L Normal 3.7-5.1 [facility] Comment on above: Order Comment: Speci men Type: BLOOD SPECIMENOrdering Facility: [facility] Address: [address] [place] [address] Performed By: #### 2 4323-8 ####[facility] LABCLIA [id number] [place] [address] [place] Protein [Mass/Vol] 5.4 g/dL Low 6.3-8.0 [facility] Comment on above: Order Comment: Speci men Type: BLOOD SPECIMENOrdering Facility: [facility] Address: [address] [place] [address] Performed By: #### 2 4323-8 ####[facility] LABCLIA [id number] [place] [address] [place] Sodium [Moles/Vol] 136 mmol/L Normal 136-144 [facility] Comment on above: Order Comment: Speci men Type: BLOOD SPECIMENOrdering Facility: [facility] Address: [address] [place] [address] Performed By: #### 2 4323-8 ####[facility] LABCLIA [id number] [place] [address] [place] Urea nitrogen [Mass/Vol] 34 mg/dL High 9-24 [facility] Comment on above: Order Comment: Speci men Type: BLOOD SPECIMENOrdering Facility: [facility] Address: [address] [place] [address] Performed By: #### 2 4323-8 ####[facility] LABCLIA [id number] [place] [address] [place] THERAPY NTon 06-24-2024 THERAPY NT Normal [facility] THERAPY NT Normal [facility] XR CHEST 2V FRONTAL/LATon XR CHEST 2V FRONTAL/LAT Normal [facility] CASE MANAGEMon 06-23-2024 CASE MANAGEM Normal [facility] CBC panel Auto (Bld)on 06-23 Erythrocyte distribution width (RBC) [Ratio] 14.3 % Normal 11.5-15.0 [facility] Comment on above: Order Comment: Speci men Type: BLOOD SPECIMENOrdering Facility: [facility] Address: [address] [place] [address] Performed By: #### 5 8410-2 ####[facility] LABCLIA [id number] [place] [address] [place] Hematocrit (Bld) [Volume fraction] 22.3 % Low 39.0-51.0 [facility] Comment on above: Order Comment: Speci men Type: BLOOD SPECIMENOrdering Facility: [facility] Address: [address] [place] [address] Performed By: #### 5 8410-2 ####[facility] LABIA [id number] [place] [address] [place] Hemoglobin (Bld) [Mass/Vol] 7.2 g/dL Low 13.0-17.0 [facility] Comment on above: Order Comment: Speci men Type: BLOOD SPECIMENOrdering Facility: [facility] Address: [address] [place] [address] Performed By: #### 5 8410-2 ####[facility] LABIA [id number] [place] [address] [place] MCH (RBC) [Entitic mass] 30.5 pg Normal 26.0-34.0 [facility] Comment on above: Order Comment: Speci men Type: BLOOD SPECIMENOrdering Facility: [facility] Address: [address] [place] [address] Performed By: #### 5 8410-2 ####[facility] LABIA [id number] [place] [address] [place] MCHC (RBC) [Mass/Vol] 32.3 g/dL Normal 30.5-36.0 [facility] Comment on above: Order Comment: Speci men Type: BLOOD SPECIMENOrdering Facility: [facility] Address: [address] [place] [address] Performed By: #### 5 8410-2 ####[facility] LABIA [id number] [place] [address] [place] MCV (RBC) [Entitic vol] 94.5 fL Normal 80.0-100.0 [facility] Comment on above: Order Comment: Speci men Type: BLOOD SPECIMENOrdering Facility: [facility] Address: [address] [place] [address] Performed By: #### 5 8410-2 ####[facility] LABCLIA [id number] [place] [address] [place] Nucleated RBC (Bld) [#/Vol] 0.04 10*3/uL High <0.01 [facility] Comment on above: Order Comment: Speci men Type: BLOOD SPECIMENOrdering Facility: [facility] Address: [address] [place] [address] Performed By: #### 5 8410-2 ####[facility] LABCLIA [id number] [place] [address] [place] Platelet mean volume (Bld) [Entitic vol] 11.1 fL Normal 9.0-12.7 [facility] Comment on above: Order Comment: Speci men Type: BLOOD SPECIMENOrdering Facility: [facility] Address: [address] [place] [address] Performed By: #### 5 8410-2 ####[facility] LABCLIA [id number] [place] [address] [place] Platelets (Bld) [#/Vol] 145 10*3/uL Low 150-400 [facility] Comment on above: Order Comment: Speci men Type: BLOOD SPECIMENOrdering Facility: [facility] Address: [address] [place] [address] Performed By: #### 5 8410-2 ####[facility] LABCLIA [id number] [place] [address] [place] RBC (Bld) [#/Vol] 2.36 10*6/uL Low 4.20-6.00 [facility] Comment on above: Order Comment: Speci men Type: BLOOD SPECIMENOrdering Facility: [facility] Address: [address] [place] [address] Performed By: #### 5 8410-2 ####[facility] LABCLIA [id number] [address] [address] [place] WBC (Bld) [#/Vol] 9.72 10*3/uL Normal 3.70-11.00 [facility] Comment on above: Order Comment: Speci men Type: BLOOD SPECIMENOrdering Facility: [facility] Address: [address] [place] [address] Performed By: #### 5 8410-2 ####[facility] LABCLIA [id number] [place] [address] [place] Comprehensive metabolic 2000 panelon 06-23-2024 Albumin [Mass/Vol] 2.8 g/dL Low 3.9-4.9 [facility] Comment on above: Order Comment: Speci men Type: BLOOD SPECIMENOrdering Facility: [facility] Address: [address] [place], [place] [address] Performed By: #### 2 4323-8 ####[facility] LABCLIA [id number] [place] [id number] [place] ALP [Catalytic activity/Vol] 44 U/L Normal 38-113 [facility] Comment on above: Order Comment: Speci men Type: BLOOD SPECIMENOrdering Facility: [facility] Address: [address] [place] [address] Performed By: #### 2 4323-8 ####[facility] LABCLIA [id number] [place] [id number] [place] ALT [Catalytic activity/Vol] 15 U/L Normal 10-54 [facility] Comment on above: Order Comment: Speci men Type: BLOOD SPECIMENOrdering Facility: [facility] Address: [address] [place] [address] Performed By: #### 2 4323-8 ####[facility] LABCLIA [id number] [place] [address] [place] Anion gap [Moles/Vol] 8 mmol/L Normal 8-15 [facility] Comment on above: Order Comment: Speci men Type: BLOOD SPECIMENOrdering Facility: [facility] Address: [address] [place] [address] Performed By: #### 2 4323-8 ####[facility] LABCLIA [id number] [place] [address] [place] AST [Catalytic activity/Vol] 20 U/L Normal 14-40 [facility] Comment on above: Order Comment: Speci men Type: BLOOD SPECIMENOrdering Facility: [facility] Address: [address] [place] [address] Performed By: #### 2 4323-8 ####[facility] LABCLIA [id number] [place] [address] [place] Bilirubin [Mass/Vol] 0.4 mg/dL Normal 0.2-1.3 [facility] Comment on above: Order Comment: Speci men Type: BLOOD SPECIMENOrdering Facility: [facility] Address: [address] [place] [address] Performed By: #### 2 4323-8 ####[facility] LABCLIA [id number] [place] [address] [place] Calcium [Mass/Vol] 8.5 mg/dL Normal 8.5-10.2 [facility] Comment on above: Order Comment: Speci men Type: BLOOD SPECIMENOrdering Facility: [facility] Address: [address] [place] [address] Performed By: #### 2 4323-8 ####[facility] LABCLIA [id number] [place] [id number] [place] Chloride [Moles/Vol] 101 mmol/L Normal 98-107 [facility] Comment on above: Order Comment: Speci men Type: BLOOD SPECIMENOrdering Facility: [facility] Address: [address] [place] [address] Performed By: #### 2 4323-8 ####[facility] LABCLIA [id number] [place] [id number] [place] CO2 [Moles/Vol] 30 mmol/L Normal 22-30 [facility] Comment on above: Order Comment: Speci men Type: BLOOD SPECIMENOrdering Facility: [facility] Address: [address] [place] [address] Performed By: #### 2 4323-8 ####[facility] LABCLIA [id number] [place] [address] [place] Creatinine [Mass/Vol] 1.76 mg/dL High 0.73-1.22 [facility] Comment on above: Order Comment: Speci men Type: BLOOD SPECIMENOrdering Facility: [facility] Address: [address] [place] [address] Performed By: #### 2 4323-8 ####[facility] LABIA [id number] [address] Creatinine and Glomerular filtration rate.predicted panel (S/P/Bld) 40 mL/min/1.73m??? Low >=60 [facility] Comment on above: Order Comment: Speci men Type: BLOOD SPECIMENOrdering Facility: [facility] Address: [address] [place] [address] Result Comment: Annalias mated Glomerular Filtration Rate (eGFR) is calculated using the 2020 CKD-EPI creatinine equation. This equation utilizes serum creatinine, sex, and age as parameters. The creatinine assay has traceable calibration to isotope dilution-mass spectrometry. Refer to KDIGO guidelines for clinical interpretation. In patients with unstable renal function, e.g. those with acute kidney injury, the eGFR may not accurately reflect actual GFR. Performed By: #### 2 4323-8 ####[facility] LABCLIA [id number] [place] [address] [place] Glucose [Mass/Vol] 100 mg/dL High 74-99 [facility] Comment on above: Order Comment: Speci men Type: BLOOD SPECIMENOrdering Facility: [facility] Address: [address] [place] [address] Result Comment: The [place] [employer] (ADA) provides guidance for cutoff values for fasting glucose and random glucose. The ADA defines fasting as no caloric intake for at least 8 hours. Fasting plasma glucose results between 100 to 125 mg/dL indicate increased risk for diabetes (prediabetes).Fasting plasma glucose results greater than or equal to 126 mg/dL meet the criteria for diagnosis of diabetes. In the absence of unequivocal hyperglycemia, results should be confirmed by repeat testing. In a patient with classic symptoms of hyperglycemia or hyperglycemic crisis, random plasma glucose results greater than or equal to 200 mg/dL meet the criteria for diagnosis of diabetes.Reference: Standards of Medical Care in Diabetes 2016, [place] [employer]. Diabetes Care. 2016.39(Suppl 1). Performed By: #### 2 4323-8 ####[facility] LABIA [id number] [place] [address] [place] Potassium [Moles/Vol] 5.0 mmol/L Normal 3.7-5.1 [facility] Comment on above: Order Comment: Speci men Type: BLOOD SPECIMENOrdering Facility: [facility] Address: [address] [place] [address] Performed By: #### 2 4323-8 ####[facility] LABIA [id number] [place] [address] [place] Protein [Mass/Vol] 5.0 g/dL Low 6.3-8.0 [facility] Comment on above: Order Comment: Speci men Type: BLOOD SPECIMENOrdering Facility: [facility] Address: [address] [place] [address] Performed By: #### 2 4323-8 ####[facility] LABIA [id number] [address] [address] [place] Sodium [Moles/Vol] 139 mmol/L Normal 136-144 [facility] Comment on above: Order Comment: Speci men Type: BLOOD SPECIMENOrdering Facility: [facility] Address: [address] [place] [address] Performed By: #### 2 4323-8 ####[facility] LABCLIA [id number] [place] [address] [place] Urea nitrogen [Mass/Vol] 32 mg/dL High 9-24 [facility] Comment on above: Order Comment: Speci men Type: BLOOD SPECIMENOrdering Facility: [facility] Address: [address] [place] [address] Performed By: #### 2 4323-8 ####[facility] LABCLIA [id number] [place] [address] [place] NUTRITIONon 06-23-2024 NUTRITION Normal [facility] THERAPY NTon 06-23-2024 THERAPY NT Normal [facility] TYPE + SCREENon 06-23-2024 ABO A Normal [facility] Comment on above: Order Comment: Speci men Type: BLOOD SPECIMENOrdering Facility: [facility] Address: [address] [place] [address] Performed By: #### T SCR ####[facility] BLOOD BANKCLIA [id number] [place] [address] [place] HISTORICAL AB SCR STATUS Negative Normal Doctors [facility] Comment on above: Order Comment: Speci men Type: BLOOD SPECIMENOrdering Facility: [facility] Address: [address] [place], [place] [address] Performed By: #### T SCR ####CC [facility] BLOOD BANKCLIA [id number] [place] [id number] [place] Rh Nom (Bld) Positive [facility] Comment on above: Order Comment: Speci men Type: BLOOD SPECIMENOrdering Facility: [facility] Address: [address] [place], [place] [address] Performed By: #### T SCR ####CC [facility] BLOOD BANKCLIA [id number] [place] [address] [place] TYPE AND SCREEN EXPIRATION 06/26/2024 23:59 Normal [facility] Comment on above: Order Comment: Speci men Type: BLOOD SPECIMENOrdering Facility: [facility] Address: [address] [place] [address] Performed By: #### T SCR ####CC [facility] BLOOD BANKCLIA [id number] [place] [id number] [place] XR ABDOMEN 1V SUPINEon 06-23 XR ABDOMEN 1V SUPINE [facility] ALLIED HEALTHon 06-22-2024 ALLIED HEALTH Normal [facility] CASE MANAGEMon 06-22-2024 CASE MANAGEM Normal [facility] CBC panel Auto (Bld)on 06-22 Erythrocyte distribution width (RBC) [Ratio] 14.6 % Normal 11.5-15.0 [facility] Comment on above: Order Comment: Speci men Type: BLOOD SPECIMENOrdering Facility: [facility] Address: [address] [place] [address] Performed By: #### 5 8410-2 ####[facility] LABCLIA [id number] [place] [id number] [place] Hematocrit (Bld) [Volume fraction] 25.4 % Low 39.0-51.0 [facility] Comment on above: Order Comment: Speci men Type: BLOOD SPECIMENOrdering Facility: [facility] Address: [address] [place] [address] Performed By: #### 5 8410-2 ####[facility] LABCLIA [id number] [place] [id number] [place] Hemoglobin (Bld) [Mass/Vol] 7.8 g/dL Low 13.0-17.0 [facility] Comment on above: Order Comment: Speci men Type: BLOOD SPECIMENOrdering Facility: [facility] Address: [address] [place] [address] Performed By: #### 5 8410-2 ####[facility] LABCLIA [id number] [place] [address] [place] MCH (RBC) [Entitic mass] 29.7 pg Normal 26.0-34.0 [facility] Comment on above: Order Comment: Speci men Type: BLOOD SPECIMENOrdering Facility: [facility] Address: [address] [place] [address] Performed By: #### 5 8410-2 ####[facility] LABIA [id number] [place] [address] [place] MCHC (RBC) [Mass/Vol] 30.7 g/dL Normal 30.5-36.0 [facility] Comment on above: Order Comment: Speci men Type: BLOOD SPECIMENOrdering Facility: [facility] Address: [address] [place] [address] Performed By: #### 5 8410-2 ####[facility] LABIA [id number] [place] [address] [place] MCV (RBC) [Entitic vol] 96.6 fL Normal 80.0-100.0 [facility] Comment on above: Order Comment: Speci men Type: BLOOD SPECIMENOrdering Facility: [facility] Address: [address] [place] [address] Performed By: #### 5 8410-2 ####[facility] LABCLIA [id number] [place] [address] [place] Nucleated RBC (Bld) [#/Vol] 0.02 10*3/uL High <0.01 [facility] Comment on above: Order Comment: Speci men Type: BLOOD SPECIMENOrdering Facility: [facility] Address: [address] [place] [address] Performed By: #### 5 8410-2 ####[facility] LABCLIA [id number] [address] [address] [place] Platelet mean volume (Bld) [Entitic vol] 11.0 fL Normal 9.0-12.7 [facility] Comment on above: Order Comment: Speci men Type: BLOOD SPECIMENOrdering Facility: [facility] Address: [address] [place] [address] Performed By: #### 5 8410-2 ####[facility] LABIA [id number] [place] [address] [place] Platelets (Bld) [#/Vol] 129 10*3/uL Low 150-400 [facility] Comment on above: Order Comment: Speci men Type: BLOOD SPECIMENOrdering Facility: [facility] Address: [address] [place] [address] Result Comment: Resu lts checked and verified.No clot detected. Performed By: #### 5 8410-2 ####[facility] LABIA [id number] [place] [address] [place] RBC (Bld) [#/Vol] 2.63 10*6/uL Low 4.20-6.00 [facility] Comment on above: Order Comment: Speci men Type: BLOOD SPECIMENOrdering Facility: [facility] Address: [address] [place] [address] Performed By: #### 5 8410-2 ####[facility] LABIA [id number] [place] [address] [place] WBC (Bld) [#/Vol] 10.58 10*3/uL Normal 3.70-11.00 [facility] Comment on above: Order Comment: Speci men Type: BLOOD SPECIMENOrdering Facility: [facility] Address: [address] [place] [address] Performed By: #### 5 8410-2 ####[facility] LABIA [id number] [place] [id number] [place] CNDSon 06-22-2024 CNDS Normal [facility] Comprehensive metabolic 2000 panelon 06-22-2024 Albumin [Mass/Vol] 2.9 g/dL Low 3.9-4.9 [facility] Comment on above: Order Comment: Speci men Type: BLOOD SPECIMENOrdering Facility: [facility] Address: [address] [place] [address] Performed By: #### 2 4323-8, ####[facility] LABCLIA [id number] [place] [address] [place] ALP [Catalytic activity/Vol] 46 U/L Normal 38-113 [facility] Comment on above: Order Comment: Speci men Type: BLOOD SPECIMENOrdering Facility: [facility] Address: [address] [place] [address] Performed By: #### 2 432-8, ####[facility] LABIA [id number] [place] [address] [place] ALT [Catalytic activity/Vol] 18 U/L Normal 10-54 [facility] Comment on above: Order Comment: Speci men Type: BLOOD SPECIMENOrdering Facility: [facility] Address: [address] [place] [address] Performed By: #### 2 4323-8, ####[facility] LABIA [id number] [place] [id number] [place] Anion gap [Moles/Vol] 10 mmol/L Normal 8-15 [facility] Comment on above: Order Comment: Speci men Type: BLOOD SPECIMENOrdering Facility: [facility] Address: [address] [place] [address] Performed By: #### 2 4323-8, ####[facility] LABIA [id number] [place] [id number] [place] AST [Catalytic activity/Vol] 22 U/L Normal 14-40 [facility] Comment on above: Order Comment: Speci men Type: BLOOD SPECIMENOrdering Facility: [facility] Address: [address] [place] [address] Performed By: #### 2 4323-8, ####[facility] LABCLIA [id number] [place] [address] [place] Bilirubin [Mass/Vol] 0.5 mg/dL Normal 0.2-1.3 [facility] Comment on above: Order Comment: Speci men Type: BLOOD SPECIMENOrdering Facility: [facility] Address: [address] [place] [address] Performed By: #### 2 4323-8, ####[facility] LABCLIA [id number] [place] [address] [place] Calcium [Mass/Vol] 8.3 mg/dL Low 8.5-10.2 [facility] Comment on above: Order Comment: Speci men Type: BLOOD SPECIMENOrdering Facility: [facility] Address: [address] [place] [address] Performed By: #### 2 4323-8, ####[facility] LABCLIA [id number] [place] [address] [place] Chloride [Moles/Vol] 100 mmol/L Normal 98-107 [facility] Comment on above: Order Comment: Speci men Type: BLOOD SPECIMENOrdering Facility: [facility] Address: [address] [place] [address] Performed By: #### 2 4323-8, ####[facility] LABCLIA [id number] [place] [id number] [place] CO2 [Moles/Vol] 28 mmol/L Normal 22-30 [facility] Comment on above: Order Comment: Speci men Type: BLOOD SPECIMENOrdering Facility: [facility] Address: [address] [place] [id number] Performed By: #### 2 4323-8, ####[facility] LABIA [id number] [place] [id number] [place] Creatinine [Mass/Vol] 1.73 mg/dL High 0.73-1.22 [facility] Comment on above: Order Comment: Speci men Type: BLOOD SPECIMENOrdering Facility: [facility] Address: [address] [place] [address] Performed By: #### 2 4323-8, ####[facility] LABIA [id number] [place] [address] [place] Creatinine and Glomerular filtration rate.predicted panel (S/P/Bld) 40 mL/min/1.73m??? Low >=60 [facility] Comment on above: Order Comment: Bobby villalpando Type: BLOOD SPECIMENOrdering Facility: [facility] Address: [address] [place] [address] Result Comment: Annalisa mated Glomerular Filtration Rate (eGFR) is calculated using the 2020 CKD-EPI creatinine equation. This equation utilizes serum creatinine, sex, and age as parameters. The creatinine assay has traceable calibration to isotope dilution-mass spectrometry. Refer to KDIGO guidelines for clinical interpretation. In patients with unstable renal function, e.g. those with acute kidney injury, the eGFR may not accurately reflect actual GFR. Performed By: #### 2 4323-8, ####[facility] LABIA [id number] [place] [id number] [place] Glucose [Mass/Vol] 89 mg/dL Normal 74-99 [facility] Comment on above: Order Comment: Chandanai men Type: BLOOD SPECIMENOrdering Facility: [facility] Address: [address] [place] [address] Result Comment: The [place] [employer] (ADA) provides guidance for cutoff values for fasting glucose and random glucose. The ADA defines fasting as no caloric intake for at least 8 hours. Fasting plasma glucose results between 100 to 125 mg/dL indicate increased risk for diabetes (prediabetes).Fasting plasma glucose results greater than or equal to 126 mg/dL meet the criteria for diagnosis of diabetes. In the absence of unequivocal hyperglycemia, results should be confirmed by repeat testing. In a patient with classic symptoms of hyperglycemia or hyperglycemic crisis, random plasma glucose results greater than or equal to 200 mg/dL meet the criteria for diagnosis of diabetes.Reference: Standards of Medical Care in Diabetes 2016, [place] [employer]. Diabetes Care. 2016.39(Suppl 1). Performed By: #### 2 4323-06, ####[facility] LABCLIA [id number] [place] [address] [place] Potassium [Moles/Vol] 4.0 mmol/L Normal 3.7-5.1 [facility] Comment on above: Order Comment: Chandanai kwasi Type: BLOOD SPECIMENOrdering Facility: [facility] Address: [address] [place] [address] Performed By: #### 2 4323-06, ####[facility] LABCLIA [id number] [place] [address] [place] Protein [Mass/Vol] 5.1 g/dL Low 6.3-8.0 [facility] Comment on above: Order Comment: Bobby villalpando Type: BLOOD SPECIMENOrdering Facility: [facility] Address: [address] [place] [address] Performed By: #### 2 4323-06, ####[facility] LABCLIA [id number] [facility] [address] [address] [place] Sodium [Moles/Vol] 138 mmol/L Normal 136-144 [facility] Comment on above: Order Comment: Chandanai kwasi Type: BLOOD SPECIMENOrdering Facility: [facility] Address: [address] [place] [address] Performed By: #### 2 43201-16, ####[facility] LABCLIA [id number] [place] [id number] [place] Urea nitrogen [Mass/Vol] 30 mg/dL High 9-24 [facility] Comment on above: Order Comment: Speci men Type: BLOOD SPECIMENOrdering Facility: [facility] Address: [address] [place] [address] Performed By: #### 2 4323-8, 01268-3 ####[facility] LABCLIA [id number] [place] [address] [place] ECG COMPLETEon 06-22-2024 ECG COMPLETE Normal [facility] Magnesium SerPl-mCncon 06-22 Magnesium [Mass/Vol] 2.1 mg/dL Normal 1.7-2.3 [facility] Comment on above: Order Comment: Speci men Type: BLOOD SPECIMENOrdering Facility: [facility] Address: [address] [place] [address] Performed By: #### 2 4323-8, ####[facility] LABCLIA [id number] [place] [id number] [place] PT EDon 06-22-2024 PT ED Normal [facility] THERAPY NTon 06-22-2024 THERAPY NT Normal [facility] THERAPY NT Normal [facility] THERAPY NT Normal [facility] XR CHEST 1V FRONTAL PORTon 0 06-22-2024 XR CHEST 1V FRONTAL PORT Normal [facility] CBC panel Auto (Bld)on 06-21 Erythrocyte distribution width (RBC) [Ratio] 14.9 % Normal 11.5-15.0 [facility] Comment on above: Order Comment: Speci men Type: BLOOD SPECIMENOrdering Facility: [facility] Address: [address] [place] [address] Performed By: #### 5 8410-2 ####[facility] LABCLIA [id number] [place] [id number] [place] Hematocrit (Bld) [Volume fraction] 24.8 % Low 39.0-51.0 [facility] Comment on above: Order Comment: Speci men Type: BLOOD SPECIMENOrdering Facility: [facility] Address: [address] [place] [address] Performed By: #### 5 8410-2 ####[facility] LABIA [id number] [place] [address] [place] Hemoglobin (Bld) [Mass/Vol] 8.0 g/dL Low 13.0-17.0 [facility] Comment on above: Order Comment: Speci men Type: BLOOD SPECIMENOrdering Facility: [facility] Address: [address] [place] [address] Performed By: #### 5 8410-2 ####[facility] [id number] [place] [address] [place] MCH (RBC) [Entitic mass] 30.4 pg Normal 26.0-34.0 [facility] Comment on above: Order Comment: Speci men Type: BLOOD SPECIMENOrdering Facility: [facility] Address: [address] [place] [address] Performed By: #### 5 8410-2 ####[facility] [id number] [place] [address] [place] MCHC (RBC) [Mass/Vol] 32.3 g/dL Normal 30.5-36.0 [facility] Comment on above: Order Comment: Speci men Type: BLOOD SPECIMENOrdering Facility: [facility] Address: [address] [place] [address] Performed By: #### 5 8410-2 ####[facility] [id number] [place] [address] [place] MCV (RBC) [Entitic vol] 94.3 fL Normal 80.0-100.0 [facility] Comment on above: Order Comment: Speci men Type: BLOOD SPECIMENOrdering Facility: [facility] Address: [address] [place] [address] Performed By: #### 5 8410-2 ####[facility] LABCLIA [id number] [place] [address] [place] Nucleated RBC (Bld) [#/Vol] 10*3/uL Normal <0.01 [facility] Comment on above: Order Comment: Speci men Type: BLOOD SPECIMENOrdering Facility: [facility] Address: [address] [place] [address] Performed By: #### 5 8410-2 ####[facility] LABIA [id number] [place] [address] [place] Platelet mean volume (Bld) [Entitic vol] 11.1 fL Normal 9.0-12.7 [facility] Comment on above: Order Comment: Speci men Type: BLOOD SPECIMENOrdering Facility: [facility] Address: [address] [place] [address] Performed By: #### 5 8410-2 ####[facility] LABIA [id number] [place] [address] [place] Platelets (Bld) [#/Vol] 107 10*3/uL Low 150-400 [facility] Comment on above: Order Comment: Speci men Type: BLOOD SPECIMENOrdering Facility: [facility] Address: [address] [place] [address] Performed By: #### 5 8410-2 ####[facility] LABIA [id number] [place] [address] [place] RBC (Bld) [#/Vol] 2.63 10*6/uL Low 4.20-6.00 [facility] Comment on above: Order Comment: Speci men Type: BLOOD SPECIMENOrdering Facility: [facility] Address: [address] [place] [address] Performed By: #### 5 8410-2 ####[facility] LABIA [id number] [place] [address] [place] WBC (Bld) [#/Vol] 13.59 10*3/uL High 3.70-11.00 [facility] Comment on above: Order Comment: Speci men Type: BLOOD SPECIMENOrdering Facility: [facility] Address: [address] [place] [address] Performed By: #### 5 8410-2 ####[facility] LABCLIA [id number] [place] [address] [place] Comprehensive metabolic 2000 panelon 06-21-2024 Albumin [Mass/Vol] 3.1 g/dL Low 3.9-4.9 [facility] Comment on above: Order Comment: Speci men Type: BLOOD SPECIMENOrdering Facility: [facility] Address: [address] [place] [address] Performed By: #### 2 4323-8 ####[facility] LABCLIA [id number] [place] [address] [place] ALP [Catalytic activity/Vol] 41 U/L Normal 38-113 [facility] Comment on above: Order Comment: Speci men Type: BLOOD SPECIMENOrdering Facility: [facility] Address: [address] [place] [address] Performed By: #### 2 4323-8 ####[facility] LABCLIA [id number] [place] [address] [place] ALT [Catalytic activity/Vol] 18 U/L Normal 10-54 [facility] Comment on above: Order Comment: Speci men Type: BLOOD SPECIMENOrdering Facility: [facility] Address: [address] [place] [address] Performed By: #### 2 4323-8 ####[facility] LABCLIA [id number] [place] [address] [place] Anion gap [Moles/Vol] 11 mmol/L Normal 8-15 [facility] Comment on above: Order Comment: Speci men Type: BLOOD SPECIMENOrdering Facility: [facility] Address: [address] [place] [address] Performed By: #### 2 4323-8 ####[facility] LABCLIA [id number] [place] [address] [place] AST [Catalytic activity/Vol] 26 U/L Normal 14-40 [facility] Comment on above: Order Comment: Speci men Type: BLOOD SPECIMENOrdering Facility: [facility] Address: [address] [place] [address] Performed By: #### 2 4323-8 ####[facility] LABCLIA [id number] [place] [address] [place] Bilirubin [Mass/Vol] 0.5 mg/dL Normal 0.2-1.3 [facility] Comment on above: Order Comment: Speci men Type: BLOOD SPECIMENOrdering Facility: [facility] Address: [address] [place] [address] Performed By: #### 2 4323-8 ####[facility] LABCLIA [id number] [place] [address] [place] Calcium [Mass/Vol] 8.6 mg/dL Normal 8.5-10.2 [facility] Comment on above: Order Comment: Speci men Type: BLOOD SPECIMENOrdering Facility: [facility] Address: [address] [place] [address] Performed By: #### 2 4323-8 ####[facility] LABCLIA [id number] [place] [address] [place] Chloride [Moles/Vol] 102 mmol/L Normal 98-107 [facility] Comment on above: Order Comment: Speci men Type: BLOOD SPECIMENOrdering Facility: [facility] Address: [address] [place] [address] Performed By: #### 2 4323-8 ####[facility] LABCLIA [id number] [place] [address] [place] CO2 [Moles/Vol] 25 mmol/L Normal 22-30 [facility] Comment on above: Order Comment: Speci men Type: BLOOD SPECIMENOrdering Facility: [facility] Address: [address] [place] [address] Performed By: #### 2 4323-8 ####[facility] LABCLIA [id number] [place] [address] [place] Creatinine [Mass/Vol] 1.79 mg/dL High 0.73-1.22 [facility] Comment on above: Order Comment: Speci men Type: BLOOD SPECIMENOrdering Facility: [facility] Address: [address] [place] [address] Performed By: #### 2 4323-8 ####[facility] LABIA [id number] [place] [address] [place] Creatinine and Glomerular filtration rate.predicted panel (S/P/Bld) 39 mL/min/1.73m??? Low >=60 [facility] Comment on above: Order Comment: Speci men Type: BLOOD SPECIMENOrdering Facility: [facility] Address: [address] [place] [address] Result Comment: Annalisa mated Glomerular Filtration Rate (eGFR) is calculated using the 2020 CKD-EPI creatinine equation. This equation utilizes serum creatinine, sex, and age as parameters. The creatinine assay has traceable calibration to isotope dilution-mass spectrometry. Refer to KDIGO guidelines for clinical interpretation. In patients with unstable renal function, e.g. those with acute kidney injury, the eGFR may not accurately reflect actual GFR. Performed By: #### 2 4323-8 ####[facility] LABCLIA [id number] [place] [address] [place] Glucose [Mass/Vol] 115 mg/dL High 74-99 [facility] Comment on above: Order Comment: Speci men Type: BLOOD SPECIMENOrdering Facility: [facility] Address: [address] [place] [address] Result Comment: The [place] [employer] (ADA) provides guidance for cutoff values for fasting glucose and random glucose. The ADA defines fasting as no caloric intake for at least 8 hours. Fasting plasma glucose results between 100 to 125 mg/dL indicate increased risk for diabetes (prediabetes).Fasting plasma glucose results greater than or equal to 126 mg/dL meet the criteria for diagnosis of diabetes. In the absence of unequivocal hyperglycemia, results should be confirmed by repeat testing. In a patient with classic symptoms of hyperglycemia or hyperglycemic crisis, random plasma glucose results greater than or equal to 200 mg/dL meet the criteria for diagnosis of diabetes.Reference: Standards of Medical Care in Diabetes 2016, [place] [employer]. Diabetes Care. 2016.39(Suppl 1). Performed By: #### 2 4323-8 ####[facility] LABCLIA [id number] [place] [address] [place] Potassium [Moles/Vol] 4.5 mmol/L Normal 3.7-5.1 [facility] Comment on above: Order Comment: Speci men Type: BLOOD SPECIMENOrdering Facility: [facility] Address: [address] [place] [address] Performed By: #### 2 4323-8 ####[facility] LABIA [id number] [place] [address] [place] Protein [Mass/Vol] 4.9 g/dL Low 6.3-8.0 [facility] Comment on above: Order Comment: Speci men Type: BLOOD SPECIMENOrdering Facility: [facility] Address: [address] [place] [address] Performed By: #### 2 4323-8 ####[facility] LABCLIA [id number] [place] [address] [place] Sodium [Moles/Vol] 138 mmol/L Normal 136-144 [facility] Comment on above: Order Comment: Speci men Type: BLOOD SPECIMENOrdering Facility: [facility] Address: [address] [place] [address] Performed By: #### 2 4323-8 ####[facility] LABCLIA [id number] [place] [address] [place] Urea nitrogen [Mass/Vol] 24 mg/dL Normal 9-24 [facility] Comment on above: Order Comment: Speci men Type: BLOOD SPECIMENOrdering Facility: [facility] Address: [address] [place] [address] Performed By: #### 2 4323-8 ####[facility] LABCLIA [id number] [place] [address] [place] Gas and Carbon monoxide pane l (BldV)on 06-21-2024 Base excess Calc (BldV) [Moles/Vol] 3 mmol/L High 0-2 [facility] Comment on above: Order Comment: Speci men Type: VENOUS BLOOD SPECIMENOrdering Facility: [facility] Address: [address] [place] [address] Performed By: #### 2 4344-4 ####[facility] LABIA [id number] [address] STATES OF [facility] Body temperature 98.6 [degF] Normal [facility] Comment on above: Order Comment: Speci men Type: VENOUS BLOOD SPECIMENOrdering Facility: [facility] Address: [address] [place] [address] Performed By: #### 2 4344-4 ####[facility] LABIA [id number] [place] [address] [place] Calcium.ionized (Bld) [Mass/Vol] 1.17 mmol/L Normal 1.08-1.30 [facility] Comment on above: Order Comment: Speci men Type: VENOUS BLOOD SPECIMENOrdering Facility: [facility] Address: [address] [place] [address] Performed By: #### 2 4344-4 ####[facility] LABIA [id number] [address] [address] [place] Calcium.ionized adjusted to pH 7.4 (BldA) [Moles/Vol] 1.15 mmol/L Normal 1.08-1.30 [facility] Comment on above: Order Comment: Speci men Type: VENOUS BLOOD SPECIMENOrdering Facility: [facility] Address: [address] [place] [address] Performed By: #### 2 4344-4 ####[facility] LABCLIA [id number] [place] [address] [place] Carboxyhemoglobin (BldV) [Mass fraction] 1.4 % Normal 0.0-2.0 [facility] Comment on above: Order Comment: Speci men Type: VENOUS BLOOD SPECIMENOrdering Facility: [facility] Address: [address] [place] [address] Result Comment: Carb oxyhemoglobin Reference Range for Smokers: 2.0-8.0% Performed By: #### 2 4344-4 ####[facility] LABIA [id number] [place] [address] [place] CO2 (BldV) [Partial pressure] 50 mm[Hg] Normal 42-55 [facility] Comment on above: Order Comment: Speci men Type: VENOUS BLOOD SPECIMENOrdering Facility: [facility] Address: [address] [place] [address] Performed By: #### 2 4344-4 ####[facility] LABCLIA [id number] [place] [address] [place] Glucose [Mass/Vol] 116 mg/dL High 60-105 [facility] Comment on above: Order Comment: Speci men Type: VENOUS BLOOD SPECIMENOrdering Facility: [facility] Address: [address] [place] [address] Performed By: #### 2 4344-4 ####[facility] LABCLIA [id number] [place] [address] [place] HCO3 (Bld) [Moles/Vol] 28 mmol/L Normal 24-28 [facility] Comment on above: Order Comment: Speci men Type: VENOUS BLOOD SPECIMENOrdering Facility: [facility] Address: [address] [place] [address] Performed By: #### 2 4344-4 ####[facility] LABCLIA [id number] [place] [address] [place] Hematocrit (Bld) [Volume fraction] 26.6 % Low 39.0-51.0 [facility] Comment on above: Order Comment: Speci men Type: VENOUS BLOOD SPECIMENOrdering Facility: [facility] Address: [address] [place] [address] Performed By: #### 2 4344-4 ####[facility] LABIA [id number] [place] [address] [place] Hemoglobin (Bld) [Mass/Vol] 8.6 g/dL Low 13.0-17.0 [facility] Comment on above: Order Comment: Speci men Type: VENOUS BLOOD SPECIMENOrdering Facility: [facility] Address: [address] [place] [address] Performed By: #### 2 4344-4 ####[facility] LABIA [id number] [place] [address] [place] Lactate [Moles/Vol] 0.9 mmol/L Normal 0.5-2.2 [facility] Comment on above: Order Comment: Speci men Type: VENOUS BLOOD SPECIMENOrdering Facility: [facility] Address: [address] [place] [address] Performed By: #### 2 4344-4 ####[facility] LABIA [id number] [place] [address] [place] Methemoglobin (Bld) [Mass fraction] 0.6 % Normal 0.0-1.5 [facility] Comment on above: Order Comment: Speci men Type: VENOUS BLOOD SPECIMENOrdering Facility: [facility] Address: [address] [place] [address] Performed By: #### 2 4344-4 ####[facility] LABCLIA [id number] [place] [address] [place] O2 THERAPY NC = Nasal Cannula Normal [facility] Comment on above: Order Comment: Speci men Type: VENOUS BLOOD SPECIMENOrdering Facility: [facility] Address: [address] [place] [address] Performed By: #### 2 4344-4 ####[facility] LABCLIA [id number] [place] [address] [place] Oxygen (BldV) [Partial pressure] 29 mm[Hg] Low 35-45 [facility] Comment on above: Order Comment: Speci men Type: VENOUS BLOOD SPECIMENOrdering Facility: [facility] Address: [address] [place] [address] Performed By: #### 2 4344-4 ####[facility] LABIA [id number] [place] [address] [place] Oxygen saturation in Venous blood 43 % Low 60-85 [facility] Comment on above: Order Comment: Speci men Type: VENOUS BLOOD SPECIMENOrdering Facility: [facility] Address: [address] [place] [address] Performed By: #### 2 4344-4 ####[facility] LABIA [id number] [place] [address] [place] Oxyhemoglobin (BldV) [Mass fraction] 42 % Low 60-85 [facility] Comment on above: Order Comment: Speci men Type: VENOUS BLOOD SPECIMENOrdering Facility: [facility] Address: [address] [place], [place] [address] Performed By: #### 2 4344-4 ####[facility] LABCLIA [id number] [place] [id number] [place] pH (BldV) 7.38 [pH] Normal 7.32-7.42 [facility] Comment on above: Order Comment: Speci men Type: VENOUS BLOOD SPECIMENOrdering Facility: [facility] Address: [address] [place] [address] Performed By: #### 2 4344-4 ####[facility] LABCLIA [id number] [place] [address] [place] Potassium [Moles/Vol] 4.0 mmol/L Normal 3.5-5.0 [facility] Comment on above: Order Comment: Speci men Type: VENOUS BLOOD SPECIMENOrdering Facility: [facility] Address: [address] [place] [address] Performed By: #### 2 4344-4 ####[facility] LABCLIA [id number] [place] [address] [place] Sodium [Moles/Vol] 135 mmol/L Low 136-144 [facility] Comment on above: Order Comment: Speci men Type: VENOUS BLOOD SPECIMENOrdering Facility: [facility] Address: [address] [place] [address] Performed By: #### 2 4344-4 ####[facility] LABCLIA [id number] [place] [address] [place] Base excess Calc (BldV) [Moles/Vol] 3 mmol/L High 0-2 [facility] Comment on above: Order Comment: Speci men Type: VENOUS BLOOD SPECIMENOrdering Facility: [facility] Address: [address] [place] [address] Performed By: #### 2 4344-4 ####[facility] LABCLIA [id number] [place] [address] [place] Body temperature 98.6 [degF] Normal [facility] Comment on above: Order Comment: Speci men Type: VENOUS BLOOD SPECIMENOrdering Facility: [facility] Address: [address] [place] [address] Performed By: #### 2 4344-4 ####[facility] LABIA [id number] [place] [address] [place] Calcium.ionized (Bld) [Mass/Vol] 1.22 mmol/L Normal 1.08-1.30 [facility] Comment on above: Order Comment: Speci men Type: VENOUS BLOOD SPECIMENOrdering Facility: [facility] Address: [address] [place] [address] Performed By: #### 2 4344-4 ####[facility] LABIA [id number] [place] [address] [place] Calcium.ionized adjusted to pH 7.4 (BldA) [Moles/Vol] 1.19 mmol/L Normal 1.08-1.30 [facility] Comment on above: Order Comment: Speci men Type: VENOUS BLOOD SPECIMENOrdering Facility: [facility] Address: [address] [place] [address] Performed By: #### 2 4344-4 ####[facility] [id number] [place] [address] [place] Carboxyhemoglobin (BldV) [Mass fraction] 1.5 % Normal 0.0-2.0 [facility] Comment on above: Order Comment: Speci men Type: VENOUS BLOOD SPECIMENOrdering Facility: [facility] Address: [address] [place] [address] Result Comment: Carb oxyhemoglobin Reference Range for Smokers: 2.0-8.0% Performed By: #### 2 4344-4 ####[facility] [id number] [place] [address] [place] CO2 (BldV) [Partial pressure] 52 mm[Hg] Normal 42-55 [facility] Comment on above: Order Comment: Speci men Type: VENOUS BLOOD SPECIMENOrdering Facility: [facility] Address: [address] [place] [address] Performed By: #### 2 4344-4 ####[facility] LABCLIA [id number] [place] [address] [place] Glucose [Mass/Vol] 118 mg/dL High 60-105 [facility] Comment on above: Order Comment: Speci men Type: VENOUS BLOOD SPECIMENOrdering Facility: [facility] Address: [address] [place] [address] Performed By: #### 2 4344-4 ####[facility] LABCLIA [id number] [place] [address] [place] HCO3 (Bld) [Moles/Vol] 28 mmol/L Normal 24-28 [facility] Comment on above: Order Comment: Speci men Type: VENOUS BLOOD SPECIMENOrdering Facility: [facility] Address: [address] [place] [address] Performed By: #### 2 4344-4 ####[facility] LABCLIA [id number] [place] [address] [place] Hematocrit (Bld) [Volume fraction] 25.8 % Low 39.0-51.0 [facility] Comment on above: Order Comment: Speci men Type: VENOUS BLOOD SPECIMENOrdering Facility: [facility] Address: [address] [place] [address] Performed By: #### 2 4344-4 ####[facility] LABCLIA [id number] [place] [address] [place] Hemoglobin (Bld) [Mass/Vol] 8.3 g/dL Low 13.0-17.0 [facility] Comment on above: Order Comment: Speci men Type: VENOUS BLOOD SPECIMENOrdering Facility: [facility] Address: [address] [place] [address] Performed By: #### 2 4344-4 ####[facility] LABCLIA [id number] [place] [address] [place] Lactate [Moles/Vol] 0.8 mmol/L Normal 0.5-2.2 [facility] Comment on above: Order Comment: Speci men Type: VENOUS BLOOD SPECIMENOrdering Facility: [facility] Address: [address] [place] [id number] Performed By: #### 2 4344-4 ####[facility] LABCLIA [id number] [address] [address] [place] LITERS 2 Liters/min Normal [facility] Comment on above: Order Comment: Speci men Type: VENOUS BLOOD SPECIMENOrdering Facility: [facility] Address: [address] [place] [address] Performed By: #### 2 4344-4 ####[facility] LABCLIA [id number] [place] [address] [place] Methemoglobin (Bld) [Mass fraction] 0.6 % Normal 0.0-1.5 [facility] Comment on above: Order Comment: Speci men Type: VENOUS BLOOD SPECIMENOrdering Facility: [facility] Address: [address] [place] [address] Performed By: #### 2 4344-4 ####[facility] LABCLIA [id number] [place] [address] [place] O2 THERAPY NC = Nasal Cannula Normal [facility] Comment on above: Order Comment: Speci men Type: VENOUS BLOOD SPECIMENOrdering Facility: [facility] Address: [address] [place], [place] [address] Performed By: #### 2 4344-4 ####[facility] LABCLIA [id number] [place] [id number] [place] Oxygen (BldV) [Partial pressure] 35 mm[Hg] Normal 35-45 [facility] Comment on above: Order Comment: Speci men Type: VENOUS BLOOD SPECIMENOrdering Facility: [facility] Address: [address] [place], [place] [address] Performed By: #### 2 4344-4 ####[facility] LABCLIA [id number] [address] [address] [place] Oxygen saturation in Venous blood 57 % Low 60-85 [facility] Comment on above: Order Comment: Speci men Type: VENOUS BLOOD SPECIMENOrdering Facility: [facility] Address: [address] [place], [place] [address] Performed By: #### 2 4344-4 ####[facility] LABCLIA [id number] [place] [address] [place] Oxyhemoglobin (BldV) [Mass fraction] 56 % Low 60-85 [facility] Comment on above: Order Comment: Speci men Type: VENOUS BLOOD SPECIMENOrdering Facility: [facility] Address: [address] [place] [address] Performed By: #### 2 4344-4 ####[facility] LABCLIA [id number] [place] [address] [place] pH (BldV) 7.35 [pH] Normal 7.32-7.42 [facility] Comment on above: Order Comment: Speci men Type: VENOUS BLOOD SPECIMENOrdering Facility: [facility] Address: [address] [place] [address] Performed By: #### 2 4344-4 ####[facility] LABCLIA [id number] [place] [address] [place] Potassium [Moles/Vol] 4.2 mmol/L Normal 3.5-5.0 [facility] Comment on above: Order Comment: Speci men Type: VENOUS BLOOD SPECIMENOrdering Facility: [facility] Address: [address] [place], [place] [address] Performed By: #### 2 4344-4 ####[facility] LABCLIA [id number] [place] [address] [place] Sodium [Moles/Vol] 135 mmol/L Low 136-144 [facility] Comment on above: Order Comment: Speci men Type: VENOUS BLOOD SPECIMENOrdering Facility: [facility] Address: [address] [place] [address] Performed By: #### 2 4344-4 ####[facility] LABIA [id number] [place] [address] [place] Base excess Calc (BldV) [Moles/Vol] 3 mmol/L High 0-2 [facility] Comment on above: Order Comment: Speci men Type: VENOUS BLOOD SPECIMENOrdering Facility: [facility] Address: [address] [place] [address] Performed By: #### 2 4344-4 ####[facility] LABIA [id number] [place] [address] [place] Body temperature 98.6 [degF] Normal [facility] Comment on above: Order Comment: Speci men Type: VENOUS BLOOD SPECIMENOrdering Facility: [facility] Address: [address] [place] [address] Performed By: #### 2 4344-4 ####[facility] LABIA [id number] [place] [address] [place] Calcium.ionized (Bld) [Mass/Vol] 1.21 mmol/L Normal 1.08-1.30 [facility] Comment on above: Order Comment: Speci men Type: VENOUS BLOOD SPECIMENOrdering Facility: [facility] Address: [address] [place] [address] Performed By: #### 2 4344-4 ####[facility] LABIA [id number] [place] [address] [place] Calcium.ionized adjusted to pH 7.4 (BldA) [Moles/Vol] 1.18 mmol/L Normal 1.08-1.30 [facility] Comment on above: Order Comment: Speci men Type: VENOUS BLOOD SPECIMENOrdering Facility: [facility] Address: [address] [place] [address] Performed By: #### 2 4344-4 ####[facility] LABCLIA [id number] [place] [address] [place] Carboxyhemoglobin (BldV) [Mass fraction] 1.6 % Normal 0.0-2.0 [facility] Comment on above: Order Comment: Speci men Type: VENOUS BLOOD SPECIMENOrdering Facility: [facility] Address: [address] [place] [address] Result Comment: Carb oxyhemoglobin Reference Range for Smokers: 2.0-8.0% Performed By: #### 2 4344-4 ####[facility] LABCLIA [id number] [place] [address] [place] CO2 (BldV) [Partial pressure] 53 mm[Hg] Normal 42-55 [facility] Comment on above: Order Comment: Speci men Type: VENOUS BLOOD SPECIMENOrdering Facility: [facility] Address: [address] [place] [address] Performed By: #### 2 4344-4 ####[facility] LABCLIA [id number] [place] [address] [place] Glucose [Mass/Vol] 115 mg/dL High 60-105 [facility] Comment on above: Order Comment: Speci men Type: VENOUS BLOOD SPECIMENOrdering Facility: [facility] Address: [address] [place] [address] Performed By: #### 2 4344-4 ####[facility] LABCLIA [id number] [place] [address] [place] HCO3 (Bld) [Moles/Vol] 29 mmol/L High 24-28 [facility] Comment on above: Order Comment: Speci men Type: VENOUS BLOOD SPECIMENOrdering Facility: [facility] Address: [address] [place] [address] Performed By: #### 2 4344-4 ####[facility] LABCLIA [id number] [place] [address] [place] Hematocrit (Bld) [Volume fraction] 25.2 % Low 39.0-51.0 [facility] Comment on above: Order Comment: Speci men Type: VENOUS BLOOD SPECIMENOrdering Facility: [facility] Address: [address] [place] [address] Performed By: #### 2 4344-4 ####[facility] LABCLIA [id number] [place] [address] [place] Hemoglobin (Bld) [Mass/Vol] 8.1 g/dL Low 13.0-17.0 [facility] Comment on above: Order Comment: Speci men Type: VENOUS BLOOD SPECIMENOrdering Facility: [facility] Address: [address] [place] [address] Performed By: #### 2 4344-4 ####[facility] LABCLIA [id number] [place] [address] [place] Lactate [Moles/Vol] 0.8 mmol/L Normal 0.5-2.2 [facility] Comment on above: Order Comment: Speci men Type: VENOUS BLOOD SPECIMENOrdering Facility: [facility] Address: [address] [place] [address] Performed By: #### 2 4344-4 ####[facility] LABCLIA [id number] [place] [address] [place] LITERS 2 Liters/min Normal [facility] Comment on above: Order Comment: Speci men Type: VENOUS BLOOD SPECIMENOrdering Facility: [facility] Address: [address] [place] [address] Performed By: #### 2 4344-4 ####[facility] LABCLIA [id number] [place] [address] [place] Methemoglobin (Bld) [Mass fraction] 0.7 % Normal 0.0-1.5 [facility] Comment on above: Order Comment: Speci men Type: VENOUS BLOOD SPECIMENOrdering Facility: [facility] Address: [address] [place], [place] [address] Performed By: #### 2 4344-4 ####[facility] LABCLIA [id number] [place] [address] [place] O2 THERAPY NC = Nasal Cannula Normal [facility] Comment on above: Order Comment: Speci men Type: VENOUS BLOOD SPECIMENOrdering Facility: [facility] Address: [address] [place] [address] Performed By: #### 2 4344-4 ####[facility] LABCLIA [id number] [place] [address] [place] Oxygen (BldV) [Partial pressure] 33 mm[Hg] Low 35-45 [facility] Comment on above: Order Comment: Speci men Type: VENOUS BLOOD SPECIMENOrdering Facility: [facility] Address: [address] [place] [address] Performed By: #### 2 4344-4 ####[facility] LABCLIA [id number] [address] [address] [place] Oxygen saturation in Venous blood 54 % Low 60-85 [facility] Comment on above: Order Comment: Speci men Type: VENOUS BLOOD SPECIMENOrdering Facility: [facility] Address: [address] [place], [place] [address] Performed By: #### 2 4344-4 ####[facility] LABCLIA [id number] [address] [address] [place] Oxyhemoglobin (BldV) [Mass fraction] 53 % Low 60-85 [facility] Comment on above: Order Comment: Speci men Type: VENOUS BLOOD SPECIMENOrdering Facility: [facility] Address: [address] [place], [place] [id number] Performed By: #### 2 4344-4 ####[facility] LABCLIA [id number] [address] [address] [place] pH (BldV) 7.36 [pH] Normal 7.32-7.42 [facility] Comment on above: Order Comment: Speci men Type: VENOUS BLOOD SPECIMENOrdering Facility: [facility] Address: [address] [place] [address] Performed By: #### 2 4344-4 ####[facility] LABCLIA [id number] [place] [address] [place] Potassium [Moles/Vol] 4.2 mmol/L Normal 3.5-5.0 [facility] Comment on above: Order Comment: Speci men Type: VENOUS BLOOD SPECIMENOrdering Facility: [facility] Address: [address] [place] [address] Performed By: #### 2 4344-4 ####[facility] LABCLIA [id number] [place] [address] [place] Sodium [Moles/Vol] 135 mmol/L Low 136-144 [facility] Comment on above: Order Comment: Speci men Type: VENOUS BLOOD SPECIMENOrdering Facility: [facility] Address: [address] [place] [address] Performed By: #### 2 4344-4 ####[facility] LABCLIA [id number] [place] [address] [place] XR CHEST 1V FRONTAL PORTon 0 06-21-2024 XR CHEST 1V FRONTAL PORT Normal [facility] CBC panel Auto (Bld)on 06-20 Erythrocyte distribution width (RBC) [Ratio] 14.9 % Normal 11.5-15.0 [facility] Comment on above: Order Comment: Speci men Type: BLOOD SPECIMENOrdering Facility: [facility] Address: [address] [place] [address] Performed By: #### 5 8410-2 ####[facility] LABCLIA [id number] [place] [address] [place] Hematocrit (Bld) [Volume fraction] 26.7 % Low 39.0-51.0 [facility] Comment on above: Order Comment: Speci men Type: BLOOD SPECIMENOrdering Facility: [facility] Address: [address] [place] [address] Performed By: #### 5 8410-2 ####[facility] [id number] [place] [address] [place] Hemoglobin (Bld) [Mass/Vol] 8.6 g/dL Low 13.0-17.0 [facility] Comment on above: Order Comment: Speci men Type: BLOOD SPECIMENOrdering Facility: [facility] Address: [address] [place] [address] Performed By: #### 5 8410-2 ####[facility] [id number] [place] [address] [place] MCH (RBC) [Entitic mass] 29.8 pg Normal 26.0-34.0 [facility] Comment on above: Order Comment: Speci men Type: BLOOD SPECIMENOrdering Facility: [facility] Address: [address] [place] [address] Performed By: #### 5 8410-2 ####[facility] [id number] [place] [address] [place] MCHC (RBC) [Mass/Vol] 32.2 g/dL Normal 30.5-36.0 [facility] Comment on above: Order Comment: Speci men Type: BLOOD SPECIMENOrdering Facility: [facility] Address: [address] [place] [address] Performed By: #### 5 8410-2 ####[facility] [id number] [place] [address] [place] MCV (RBC) [Entitic vol] 92.4 fL Normal 80.0-100.0 [facility] Comment on above: Order Comment: Speci men Type: BLOOD SPECIMENOrdering Facility: [facility] Address: [address] [place] [address] Performed By: #### 5 8410-2 ####[facility] LABCLIA [id number] [place] [address] [place] Nucleated RBC (Bld) [#/Vol] 10*3/uL Normal <0.01 [facility] Comment on above: Order Comment: Speci men Type: BLOOD SPECIMENOrdering Facility: [facility] Address: [address] [place] [address] Performed By: #### 5 8410-2 ####[facility] LABIA [id number] [place] [address] [place] Platelet mean volume (Bld) [Entitic vol] 11.2 fL Normal 9.0-12.7 [facility] Comment on above: Order Comment: Speci men Type: BLOOD SPECIMENOrdering Facility: [facility] Address: [address] [place] [address] Performed By: #### 5 8410-2 ####[facility] LABIA [id number] [place] [address] [place] Platelets (Bld) [#/Vol] 128 10*3/uL Low 150-400 [facility] Comment on above: Order Comment: Speci men Type: BLOOD SPECIMENOrdering Facility: [facility] Address: [address] [place] [address] Result Comment: No c lot detected.Results checked and verified. Performed By: #### 5 8410-2 ####[facility] LABIA [id number] [place] [address] [place] RBC (Bld) [#/Vol] 2.89 10*6/uL Low 4.20-6.00 [facility] Comment on above: Order Comment: Speci men Type: BLOOD SPECIMENOrdering Facility: [facility] Address: [address] [place] [address] Performed By: #### 5 8410-2 ####[facility] LABCLIA [id number] [place] [address] [place] WBC (Bld) [#/Vol] 15.04 10*3/uL High 3.70-11.00 [facility] Comment on above: Order Comment: Speci men Type: BLOOD SPECIMENOrdering Facility: [facility] Address: [address] [place] [address] Performed By: #### 5 8410-2 ####[facility] LABCLIA [id number] [place] [address] [place] Comprehensive metabolic 2000 panelon 06-20-2024 Albumin [Mass/Vol] 3.4 g/dL Low 3.9-4.9 [facility] Comment on above: Order Comment: Speci men Type: BLOOD SPECIMENOrdering Facility: [facility] Address: [address] [place] [address] Performed By: #### 2 4323-8 ####[facility] LABCLIA [id number] [place] [address] [place] ALP [Catalytic activity/Vol] 35 U/L Low 38-113 [facility] Comment on above: Order Comment: Speci men Type: BLOOD SPECIMENOrdering Facility: [facility] Address: [address] [place] [address] Performed By: #### 2 4323-8 ####[facility] LABCLIA [id number] [place] [address] [place] ALT [Catalytic activity/Vol] 23 U/L Normal 10-54 [facility] Comment on above: Order Comment: Speci men Type: BLOOD SPECIMENOrdering Facility: [facility] Address: [address] [place] [address] Performed By: #### 2 4323-8 ####[facility] LABCLIA [id number] [place] [address] [place] Anion gap [Moles/Vol] 12 mmol/L Normal 8-15 [facility] Comment on above: Order Comment: Speci men Type: BLOOD SPECIMENOrdering Facility: [facility] Address: [address] [place] [address] Performed By: #### 2 4323-8 ####[facility] LABCLIA [id number] [place] [id number] [place] AST [Catalytic activity/Vol] 50 U/L High 14-40 [facility] Comment on above: Order Comment: Speci men Type: BLOOD SPECIMENOrdering Facility: [facility] Address: [address] [place] [address] Performed By: #### 2 4323-8 ####[facility] LABCLIA [id number] [place] [address] [place] Bilirubin [Mass/Vol] 0.6 mg/dL Normal 0.2-1.3 [facility] Comment on above: Order Comment: Speci men Type: BLOOD SPECIMENOrdering Facility: [facility] Address: [address] [place] [address] Performed By: #### 2 4323-8 ####[facility] LABCLIA [id number] [place] [address] [place] Calcium [Mass/Vol] 8.7 mg/dL Normal 8.5-10.2 [facility] Comment on above: Order Comment: Speci men Type: BLOOD SPECIMENOrdering Facility: [facility] Address: [address] [place] [address] Performed By: #### 2 4323-8 ####[facility] LABCLIA [id number] [place] [address] [place] Chloride [Moles/Vol] 102 mmol/L Normal 98-107 [facility] Comment on above: Order Comment: Speci men Type: BLOOD SPECIMENOrdering Facility: [facility] Address: [address] [place] [address] Performed By: #### 2 4323-8 ####[facility] LABCLIA [id number] [place] [address] [place] CO2 [Moles/Vol] 24 mmol/L Normal 22-30 [facility] Comment on above: Order Comment: Speci men Type: BLOOD SPECIMENOrdering Facility: [facility] Address: [address] [place] [address] Performed By: #### 2 4323-8 ####[facility] LABCLIA [id number] [place] [address] [place] Creatinine [Mass/Vol] 1.87 mg/dL High 0.73-1.22 [facility] Comment on above: Order Comment: Speci men Type: BLOOD SPECIMENOrdering Facility: [facility] Address: [address] [place] [address] Performed By: #### 2 4323-8 ####[facility] LABIA [id number] [place] [address] [place] Creatinine and Glomerular filtration rate.predicted panel (S/P/Bld) 37 mL/min/1.73m??? Low >=60 [facility] Comment on above: Order Comment: Speci men Type: BLOOD SPECIMENOrdering Facility: [facility] Address: [address] [place] [address] Result Comment: Annalisa mated Glomerular Filtration Rate (eGFR) is calculated using the 2020 CKD-EPI creatinine equation. This equation utilizes serum creatinine, sex, and age as parameters. The creatinine assay has traceable calibration to isotope dilution-mass spectrometry. Refer to KDIGO guidelines for clinical interpretation. In patients with unstable renal function, e.g. those with acute kidney injury, the eGFR may not accurately reflect actual GFR. Performed By: #### 2 4323-8 ####[facility] LABCLIA [id number] [place] [address] [place] Glucose [Mass/Vol] 152 mg/dL High 74-99 [facility] Comment on above: Order Comment: Speci men Type: BLOOD SPECIMENOrdering Facility: [facility] Address: [address] [place] [address] Result Comment: The [place] [employer] (ADA) provides guidance for cutoff values for fasting glucose and random glucose. The ADA defines fasting as no caloric intake for at least 8 hours. Fasting plasma glucose results between 100 to 125 mg/dL indicate increased risk for diabetes (prediabetes).Fasting plasma glucose results greater than or equal to 126 mg/dL meet the criteria for diagnosis of diabetes. In the absence of unequivocal hyperglycemia, results should be confirmed by repeat testing. In a patient with classic symptoms of hyperglycemia or hyperglycemic crisis, random plasma glucose results greater than or equal to 200 mg/dL meet the criteria for diagnosis of diabetes.Reference: Standards of Medical Care in Diabetes 2016, [place] [employer]. Diabetes Care. 2016.39(Suppl 1). Performed By: #### 2 4323-8 ####[facility] LABCLIA [id number] [place] [address] [place] Potassium [Moles/Vol] 5.0 mmol/L Normal 3.7-5.1 [facility] Comment on above: Order Comment: Speci men Type: BLOOD SPECIMENOrdering Facility: [facility] Address: [address] [place] [address] Performed By: #### 2 4323-8 ####[facility] LABCLIA [id number] [place] [address] [place] Protein [Mass/Vol] 4.9 g/dL Low 6.3-8.0 [facility] Comment on above: Order Comment: Speci men Type: BLOOD SPECIMENOrdering Facility: [facility] Address: [address] [place] [id number] Performed By: #### 2 4323-8 ####[facility] LABCLIA [id number] [place] [address] [place] Sodium [Moles/Vol] 138 mmol/L Normal 136-144 [facility] Comment on above: Order Comment: Speci men Type: BLOOD SPECIMENOrdering Facility: [facility] Address: [address] [place] [address] Performed By: #### 2 4323-8 ####[facility] LABCLIA [id number] [place] [address] [place] Urea nitrogen [Mass/Vol] 24 mg/dL Normal 9-24 [facility] Comment on above: Order Comment: Speci men Type: BLOOD SPECIMENOrdering Facility: [facility] Address: [address] [place] [address] Performed By: #### 2 4323-8 ####[facility] LABCLIA [id number] [place] [address] [place] Gas and Carbon monoxide pane l (BldV)on 06-20-2024 Base excess Calc (BldV) [Moles/Vol] 2 mmol/L Normal 0-2 [facility] Comment on above: Order Comment: Speci men Type: VENOUS BLOOD SPECIMENOrdering Facility: [facility] Address: [address] [place] [address] Performed By: #### 2 4344-4 ####[facility] LABCLIA [id number] [place] [address] [place] Body temperature 98.6 [degF] Normal [facility] Comment on above: Order Comment: Speci men Type: VENOUS BLOOD SPECIMENOrdering Facility: [facility] Address: [address] [place] [address] Performed By: #### 2 4344-4 ####[facility] LABCLIA [id number] [place] [address] [place] Calcium.ionized (Bld) [Mass/Vol] 1.23 mmol/L Normal 1.08-1.30 [facility] Comment on above: Order Comment: Speci men Type: VENOUS BLOOD SPECIMENOrdering Facility: [facility] Address: [address] [place] [address] Performed By: #### 2 4344-4 ####[facility] LABCLIA [id number] [place] [address] [place] Calcium.ionized adjusted to pH 7.4 (BldA) [Moles/Vol] 1.18 mmol/L Normal 1.08-1.30 [facility] Comment on above: Order Comment: Speci men Type: VENOUS BLOOD SPECIMENOrdering Facility: [facility] Address: [address] [place] [address] Performed By: #### 2 4344-4 ####[facility] [id number] [place] [address] [place] Carboxyhemoglobin (BldV) [Mass fraction] 1.5 % Normal 0.0-2.0 [facility] Comment on above: Order Comment: Speci men Type: VENOUS BLOOD SPECIMENOrdering Facility: [facility] Address: [address] [place] [address] Result Comment: Carb oxyhemoglobin Reference Range for Smokers: 2.0-8.0% Performed By: #### 2 4344-4 ####[facility] [id number] [place] [address] [place] CO2 (BldV) [Partial pressure] 52 mm[Hg] Normal 42-55 [facility] Comment on above: Order Comment: Speci men Type: VENOUS BLOOD SPECIMENOrdering Facility: [facility] Address: [address] [place] [address] Performed By: #### 2 4344-4 ####[facility] [id number] [place] [address] [place] Glucose [Mass/Vol] 120 mg/dL High 60-105 [facility] Comment on above: Order Comment: Speci men Type: VENOUS BLOOD SPECIMENOrdering Facility: [facility] Address: [address] [place] [address] Performed By: #### 2 4344-4 ####[facility] [id number] [place] [address] [place] HCO3 (Bld) [Moles/Vol] 27 mmol/L Normal 24-28 [facility] Comment on above: Order Comment: Speci men Type: VENOUS BLOOD SPECIMENOrdering Facility: [facility] Address: [address] [place] [address] Performed By: #### 2 4344-4 ####[facility] LABCLIA [id number] [place] [address] [place] Hematocrit (Bld) [Volume fraction] 25.2 % Low 39.0-51.0 [facility] Comment on above: Order Comment: Speci men Type: VENOUS BLOOD SPECIMENOrdering Facility: [facility] Address: [address] [place] [address] Performed By: #### 2 4344-4 ####[facility] LABCLIA [id number] [place] [address] [place] Hemoglobin (Bld) [Mass/Vol] 8.1 g/dL Low 13.0-17.0 [facility] Comment on above: Order Comment: Speci men Type: VENOUS BLOOD SPECIMENOrdering Facility: [facility] Address: [address] [place] [address] Performed By: #### 2 4344-4 ####[facility] LABCLIA [id number] [place] [address] [place] Lactate [Moles/Vol] 0.7 mmol/L Normal 0.5-2.2 [facility] Comment on above: Order Comment: Speci men Type: VENOUS BLOOD SPECIMENOrdering Facility: [facility] Address: [address] [place] [address] Performed By: #### 2 4344-4 ####[facility] LABCLIA [id number] [place] [address] [place] LITERS 2 Liters/min Normal [facility] Comment on above: Order Comment: Speci men Type: VENOUS BLOOD SPECIMENOrdering Facility: [facility] Address: [address] [id number] Performed By: #### 2 4344-4 ####[facility] LABCLIA [id number] [place] [address] [place] Methemoglobin (Bld) [Mass fraction] 0.6 % Normal 0.0-1.5 [facility] Comment on above: Order Comment: Speci men Type: VENOUS BLOOD SPECIMENOrdering Facility: [facility] Address: [address] [place] [address] Performed By: #### 2 4344-4 ####[facility] LABCLIA [id number] [place] [address] [place] O2 THERAPY NC = Nasal Cannula Normal [facility] Comment on above: Order Comment: Speci men Type: VENOUS BLOOD SPECIMENOrdering Facility: [facility] Address: [address] [place] [address] Performed By: #### 2 4344-4 ####[facility] LABCLIA [id number] [place] [address] [place] Oxygen (BldV) [Partial pressure] 37 mm[Hg] Normal 35-45 [facility] Comment on above: Order Comment: Speci men Type: VENOUS BLOOD SPECIMENOrdering Facility: [facility] Address: [address] [place] [address] Performed By: #### 2 4344-4 ####[facility] LABCLIA [id number] [place] [id number] [place] Oxygen saturation in Venous blood 61 % Normal 60-85 [facility] Comment on above: Order Comment: Speci men Type: VENOUS BLOOD SPECIMENOrdering Facility: [facility] Address: [address] [id number] Performed By: #### 2 4344-4 ####[facility] LABCLIA [id number] [place] [id number] [place] Oxyhemoglobin (BldV) [Mass fraction] 60 % Normal 60-85 [facility] Comment on above: Order Comment: Speci men Type: VENOUS BLOOD SPECIMENOrdering Facility: [facility] Address: [address] [place] [address] Performed By: #### 2 4344-4 ####[facility] LABIA [id number] [place] [address] [place] pH (BldV) 7.34 [pH] Normal 7.32-7.42 [facility] Comment on above: Order Comment: Speci men Type: VENOUS BLOOD SPECIMENOrdering Facility: [facility] Address: [address] [place] [address] Performed By: #### 2 4344-4 ####[facility] LABIA [id number] [place] [address] [place] Potassium [Moles/Vol] 4.3 mmol/L Normal 3.5-5.0 [facility] Comment on above: Order Comment: Speci men Type: VENOUS BLOOD SPECIMENOrdering Facility: [facility] Address: [address] [place] [address] Performed By: #### 2 4344-4 ####[facility] LABIA [id number] [place] [address] [place] Sodium [Moles/Vol] 134 mmol/L Low 136-144 [facility] Comment on above: Order Comment: Speci men Type: VENOUS BLOOD SPECIMENOrdering Facility: [facility] Address: [address] [place] [address] Performed By: #### 2 4344-4 ####[facility] LABIA [id number] [place] [address] [place] Base excess Calc (BldV) [Moles/Vol] 2 mmol/L Normal 0-2 [facility] Comment on above: Order Comment: Speci men Type: VENOUS BLOOD SPECIMENOrdering Facility: [facility] Address: [address] [place], [place] [address] Performed By: #### 2 4344-4 ####[facility] LABIA [id number] [place] [address] [place] Body temperature 99.14 [degF] Normal [facility] Comment on above: Order Comment: Speci men Type: VENOUS BLOOD SPECIMENOrdering Facility: [facility] Address: [address] [place] [address] Performed By: #### 2 4344-4 ####[facility] LABIA [id number] [place] [address] [place] Calcium.ionized (Bld) [Mass/Vol] 1.22 mmol/L Normal 1.08-1.30 [facility] Comment on above: Order Comment: Speci men Type: VENOUS BLOOD SPECIMENOrdering Facility: [facility] Address: [address] [place] [address] Performed By: #### 2 4344-4 ####[facility] [id number] [place] [address] [place] Calcium.ionized adjusted to pH 7.4 (BldA) [Moles/Vol] 1.18 mmol/L Normal 1.08-1.30 [facility] Comment on above: Order Comment: Speci men Type: VENOUS BLOOD SPECIMENOrdering Facility: [facility] Address: [address] [place] [address] Performed By: #### 2 4344-4 ####[facility] LABIA [id number] [place] [id number] [place] Carboxyhemoglobin (BldV) [Mass fraction] 1.2 % Normal 0.0-2.0 [facility] Comment on above: Order Comment: Speci men Type: VENOUS BLOOD SPECIMENOrdering Facility: [facility] Address: [address] [place] [address] Result Comment: Carb oxyhemoglobin Reference Range for Smokers: 2.0-8.0% Performed By: #### 2 4344-4 ####[facility] LABCLIA [id number] [place] [address] [place] CO2 (BldV) [Partial pressure] 53 mm[Hg] Normal 42-55 [facility] Comment on above: Order Comment: Speci men Type: VENOUS BLOOD SPECIMENOrdering Facility: [facility] Address: [address] [place] [address] Performed By: #### 2 4344-4 ####[facility] LABCLIA [id number] [place] [address] [place] CO2 adjusted to patient's actual temperature (BldV) [Partial pressure] 54 mmHg Normal 42-55 [facility] Comment on above: Order Comment: Speci men Type: VENOUS BLOOD SPECIMENOrdering Facility: [facility] Address: [address] [place] [address] Performed By: #### 2 4344-4 ####[facility] LABCLIA [id number] [place] [address] [place] Glucose [Mass/Vol] 123 mg/dL High 60-105 [facility] Comment on above: Order Comment: Speci men Type: VENOUS BLOOD SPECIMENOrdering Facility: [facility] Address: [address] [place] [address] Performed By: #### 2 4344-4 ####[facility] LABCLIA [id number] [place] [address] [place] HCO3 (Bld) [Moles/Vol] 28 mmol/L Normal 24-28 [facility] Comment on above: Order Comment: Speci men Type: VENOUS BLOOD SPECIMENOrdering Facility: [facility] Address: [address] [place] [address] Performed By: #### 2 4344-4 ####[facility] LABCLIA [id number] [place] [address] [place] Hematocrit (Bld) [Volume fraction] 26.5 % Low 39.0-51.0 [facility] Comment on above: Order Comment: Speci men Type: VENOUS BLOOD SPECIMENOrdering Facility: [facility] Address: [address] [place] [address] Performed By: #### 2 4344-4 ####[facility] LABCLIA [id number] [place] [address] [place] Hemoglobin (Bld) [Mass/Vol] 8.5 g/dL Low 13.0-17.0 [facility] Comment on above: Order Comment: Speci men Type: VENOUS BLOOD SPECIMENOrdering Facility: [facility] Address: [address] [place] [address] Performed By: #### 2 4344-4 ####[facility] LABCLIA [id number] [place] [address] [place] Lactate [Moles/Vol] 0.9 mmol/L Normal 0.5-2.2 [facility] Comment on above: Order Comment: Speci men Type: VENOUS BLOOD SPECIMENOrdering Facility: [facility] Address: [address] [place] [address] Performed By: #### 2 4344-4 ####[facility] LABCLIA [id number] [place] [address] [place] LITERS 2 Liters/min Normal [facility] Comment on above: Order Comment: Speci men Type: VENOUS BLOOD SPECIMENOrdering Facility: [facility] Address: [address] [place] [address] Performed By: #### 2 4344-4 ####[facility] LABCLIA [id number] [place] [address] [place] Methemoglobin (Bld) [Mass fraction] 1.5 % Normal 0.0-1.5 [facility] Comment on above: Order Comment: Speci men Type: VENOUS BLOOD SPECIMENOrdering Facility: [facility] Address: [address] [place] [address] Performed By: #### 2 4344-4 ####[facility] LABCLIA [id number] [address] [address] [place] O2 THERAPY NC = Nasal Cannula Normal [facility] Comment on above: Order Comment: Speci men Type: VENOUS BLOOD SPECIMENOrdering Facility: [facility] Address: [address] [place] [address] Performed By: #### 2 4344-4 ####[facility] LABCLIA [id number] [address] [address] [place] Oxygen (BldV) [Partial pressure] 37 mm[Hg] Normal 35-45 [facility] Comment on above: Order Comment: Speci men Type: VENOUS BLOOD SPECIMENOrdering Facility: [facility] Address: [address] [place] [address] Performed By: #### 2 4344-4 ####[facility] LABCLIA [id number] [address] [address] [place] Oxygen adjusted to patient's actual temperature (BldV) [Partial pressure] 38 mmHg Normal 35-45 [facility] Comment on above: Order Comment: Speci men Type: VENOUS BLOOD SPECIMENOrdering Facility: [facility] Address: [address] [place] [address] Performed By: #### 2 4344-4 ####[facility] LABCLIA [id number] [address] [address] [place] Oxygen saturation in Venous blood 62 % Normal 60-85 [facility] Comment on above: Order Comment: Speci men Type: VENOUS BLOOD SPECIMENOrdering Facility: [facility] Address: [address] [place] [address] Performed By: #### 2 4344-4 ####[facility] LABCLIA [id number] [address] [address] [place] Oxyhemoglobin (BldV) [Mass fraction] 60 % Normal 60-85 [facility] Comment on above: Order Comment: Speci men Type: VENOUS BLOOD SPECIMENOrdering Facility: [facility] Address: [address] [place] [address] Performed By: #### 2 4344-4 ####[facility] LABIA [id number] [place] [address] [place] pH (BldV) 7.34 [pH] Normal 7.32-7.42 [facility] Comment on above: Order Comment: Speci men Type: VENOUS BLOOD SPECIMENOrdering Facility: [facility] Address: [address] [place] [address] Performed By: #### 2 4344-4 ####[facility] LABIA [id number] [place] [address] [place] pH adjusted to patient's actual temperature (BldV) 7.34 Normal 7.32-7.42 [facility] Comment on above: Order Comment: Speci men Type: VENOUS BLOOD SPECIMENOrdering Facility: [facility] Address: [address] [place] [address] Performed By: #### 2 4344-4 ####[facility] LABIA [id number] [place] [address] [place] Potassium [Moles/Vol] 4.2 mmol/L Normal 3.5-5.0 [facility] Comment on above: Order Comment: Speci men Type: VENOUS BLOOD SPECIMENOrdering Facility: [facility] Address: [address] [place] [address] Performed By: #### 2 4344-4 ####[facility] LABIA [id number] [place] [address] [place] Sodium [Moles/Vol] 135 mmol/L Low 136-144 [facility] Comment on above: Order Comment: Speci men Type: VENOUS BLOOD SPECIMENOrdering Facility: [facility] Address: [address] [place] [address] Performed By: #### 2 4344-4 ####[facility] LABCLIA [id number] [place] [address] [place] Base excess Calc (BldV) [Moles/Vol] 1 mmol/L Normal 0-2 [facility] Comment on above: Order Comment: Speci men Type: VENOUS BLOOD SPECIMENOrdering Facility: [facility] Address: [address] [place] [address] Performed By: #### 2 4344-4 ####[facility] LABIA [id number] [place] [address] [place] Body temperature 98.6 [degF] Normal [facility] Comment on above: Order Comment: Speci men Type: VENOUS BLOOD SPECIMENOrdering Facility: [facility] Address: [address] [place] [address] Performed By: #### 2 4344-4 ####[facility] LABIA [id number] [place] [address] [place] Calcium.ionized (Bld) [Mass/Vol] 1.20 mmol/L Normal 1.08-1.30 [facility] Comment on above: Order Comment: Speci men Type: VENOUS BLOOD SPECIMENOrdering Facility: [facility] Address: [address] [place] [address] Performed By: #### 2 4344-4 ####[facility] LABIA [id number] [place] [address] [place] Calcium.ionized adjusted to pH 7.4 (BldA) [Moles/Vol] 1.16 mmol/L Normal 1.08-1.30 [facility] Comment on above: Order Comment: Speci men Type: VENOUS BLOOD SPECIMENOrdering Facility: [facility] Address: [address] [place] [address] Performed By: #### 2 4344-4 ####[facility] LABIA [id number] [place] [address] [place] Carboxyhemoglobin (BldV) [Mass fraction] 1.5 % Normal 0.0-2.0 [facility] Comment on above: Order Comment: Speci men Type: VENOUS BLOOD SPECIMENOrdering Facility: [facility] Address: [address] [place] [address] Result Comment: Carb oxyhemoglobin Reference Range for Smokers: 2.0-8.0% Performed By: #### 2 4344-4 ####[facility] LABCLIA [id number] [place] [address] [place] CO2 (BldV) [Partial pressure] 51 mm[Hg] Normal 42-55 [facility] Comment on above: Order Comment: Speci men Type: VENOUS BLOOD SPECIMENOrdering Facility: [facility] Address: [address] [place] [address] Performed By: #### 2 4344-4 ####[facility] LABCLIA [id number] [place] [address] [place] Glucose [Mass/Vol] 127 mg/dL High 60-105 [facility] Comment on above: Order Comment: Speci men Type: VENOUS BLOOD SPECIMENOrdering Facility: [facility] Address: [address] [place] [address] Performed By: #### 2 4344-4 ####[facility] LABCLIA [id number] [place] [address] [place] HCO3 (Bld) [Moles/Vol] 27 mmol/L Normal 24-28 [facility] Comment on above: Order Comment: Speci men Type: VENOUS BLOOD SPECIMENOrdering Facility: [facility] Address: [address] [place] [address] Performed By: #### 2 4344-4 ####[facility] LABCLIA [id number] [place] [address] [place] Hematocrit (Bld) [Volume fraction] 25.8 % Low 39.0-51.0 [facility] Comment on above: Order Comment: Speci men Type: VENOUS BLOOD SPECIMENOrdering Facility: [facility] Address: [address] [place], [place] [address] Performed By: #### 2 4344-4 ####[facility] LABCLIA [id number] [address] [address] [place] Hemoglobin (Bld) [Mass/Vol] 8.3 g/dL Low 13.0-17.0 [facility] Comment on above: Order Comment: Speci men Type: VENOUS BLOOD SPECIMENOrdering Facility: [facility] Address: [address] [place] [address] Performed By: #### 2 4344-4 ####[facility] LABCLIA [id number] [place] [address] [place] Lactate [Moles/Vol] 0.8 mmol/L Normal 0.5-2.2 [facility] Comment on above: Order Comment: Speci men Type: VENOUS BLOOD SPECIMENOrdering Facility: [facility] Address: [address] [place] [address] Performed By: #### 2 4344-4 ####[facility] LABCLIA [id number] [place] [address] [place] LITERS 2 Liters/min Normal [facility] Comment on above: Order Comment: Speci men Type: VENOUS BLOOD SPECIMENOrdering Facility: [facility] Address: [address] [place] [address] Performed By: #### 2 4344-4 ####[facility] LABIA [id number] [place] [address] [place] Methemoglobin (Bld) [Mass fraction] 1.5 % Normal 0.0-1.5 [facility] Comment on above: Order Comment: Speci men Type: VENOUS BLOOD SPECIMENOrdering Facility: [facility] Address: [address] [place], [place] [address] Performed By: #### 2 4344-4 ####[facility] LABCLIA [id number] [address] [address] [place] O2 THERAPY NC = Nasal Cannula Normal [facility] Comment on above: Order Comment: Speci men Type: VENOUS BLOOD SPECIMENOrdering Facility: [facility] Address: [address] [place], [place] [address] Performed By: #### 2 4344-4 ####[facility] LABCLIA [id number] [place] [address] [place] Oxygen (BldV) [Partial pressure] 39 mm[Hg] Normal 35-45 [facility] Comment on above: Order Comment: Speci men Type: VENOUS BLOOD SPECIMENOrdering Facility: [facility] Address: [address] [place], [place] [address] Performed By: #### 2 4344-4 ####[facility] LABIA [id number] [place] [address] [place] Oxygen saturation in Venous blood 65 % Normal 60-85 [facility] Comment on above: Order Comment: Speci men Type: VENOUS BLOOD SPECIMENOrdering Facility: [facility] Address: [address] [place], [place] [address] Performed By: #### 2 4344-4 ####[facility] LABIA [id number] [address] [address] [place] Oxyhemoglobin (BldV) [Mass fraction] 63 % Normal 60-85 [facility] Comment on above: Order Comment: Speci men Type: VENOUS BLOOD SPECIMENOrdering Facility: [facility] Address: [address] [place] [address] Performed By: #### 2 4344-4 ####[facility] LABCLIA [id number] [address] [address] [place] pH (BldV) 7.34 [pH] Normal 7.32-7.42 [facility] Comment on above: Order Comment: Speci men Type: VENOUS BLOOD SPECIMENOrdering Facility: [facility] Address: [address] [place] [address] Performed By: #### 2 4344-4 ####[facility] LABCLIA [id number] [address] [address] [place] Potassium [Moles/Vol] 4.4 mmol/L Normal 3.5-5.0 [facility] Comment on above: Order Comment: Speci men Type: VENOUS BLOOD SPECIMENOrdering Facility: [facility] Address: [address] [place], [place] [address] Performed By: #### 2 4344-4 ####[facility] LABCLIA [id number] [place] [address] [place] Sodium [Moles/Vol] 134 mmol/L Low 136-144 [facility] Comment on above: Order Comment: Speci men Type: VENOUS BLOOD SPECIMENOrdering Facility: [facility] Address: [address] [place] [address] Performed By: #### 2 4344-4 ####[facility] LABCLIA [id number] [place] [address] [place] Base excess Calc (BldV) [Moles/Vol] 0 mmol/L Normal 0-2 [facility] Comment on above: Order Comment: Speci men Type: VENOUS BLOOD SPECIMENOrdering Facility: [facility] Address: [address] [place], [place] [address] Performed By: #### 2 4344-4 ####[facility] LABCLIA [id number] [place] [id number] [place] Body temperature 98.6 [degF] Normal [facility] Comment on above: Order Comment: Speci men Type: VENOUS BLOOD SPECIMENOrdering Facility: [facility] Address: [address] [place], [place] [address] Performed By: #### 2 4344-4 ####[facility] LABCLIA [id number] [place] [address] [place] Calcium.ionized (Bld) [Mass/Vol] 1.16 mmol/L Normal 1.08-1.30 [facility] Comment on above: Order Comment: Speci men Type: VENOUS BLOOD SPECIMENOrdering Facility: [facility] Address: [address] [place] [address] Performed By: #### 2 4344-4 ####[facility] LABIA [id number] [place] [address] [place] Calcium.ionized adjusted to pH 7.4 (BldA) [Moles/Vol] 1.13 mmol/L Normal 1.08-1.30 [facility] Comment on above: Order Comment: Speci men Type: VENOUS BLOOD SPECIMENOrdering Facility: [facility] Address: [address] [place] [address] Performed By: #### 2 4344-4 ####[facility] [id number] [place] [address] [place] Carboxyhemoglobin (BldV) [Mass fraction] 1.7 % Normal 0.0-2.0 [facility] Comment on above: Order Comment: Speci men Type: VENOUS BLOOD SPECIMENOrdering Facility: [facility] Address: [address] [place] [address] Result Comment: Carb oxyhemoglobin Reference Range for Smokers: 2.0-8.0% Performed By: #### 2 4344-4 ####[facility] LABIA [id number] [place] [address] [place] CO2 (BldV) [Partial pressure] 46 mm[Hg] Normal 42-55 [facility] Comment on above: Order Comment: Speci men Type: VENOUS BLOOD SPECIMENOrdering Facility: [facility] Address: [address] [place] [address] Performed By: #### 2 4344-4 ####[facility] LABIA [id number] [place] [address] [place] Glucose [Mass/Vol] 114 mg/dL High 60-105 [facility] Comment on above: Order Comment: Speci men Type: VENOUS BLOOD SPECIMENOrdering Facility: [facility] Address: [address] [place] [address] Performed By: #### 2 4344-4 ####[facility] LABCLIA [id number] [place] [address] [place] HCO3 (Bld) [Moles/Vol] 25 mmol/L Normal 24-28 [facility] Comment on above: Order Comment: Speci men Type: VENOUS BLOOD SPECIMENOrdering Facility: [facility] Address: [address] [place] [address] Performed By: #### 2 4344-4 ####[facility] LABCLIA [id number] [place] [address] [place] Hematocrit (Bld) [Volume fraction] 25.0 % Low 39.0-51.0 [facility] Comment on above: Order Comment: Speci men Type: VENOUS BLOOD SPECIMENOrdering Facility: [facility] Address: [address] [place] [address] Performed By: #### 2 4344-4 ####[facility] LABCLIA [id number] [place] [address] [place] Hemoglobin (Bld) [Mass/Vol] 8.0 g/dL Low 13.0-17.0 [facility] Comment on above: Order Comment: Speci men Type: VENOUS BLOOD SPECIMENOrdering Facility: [facility] Address: [address] [place] [address] Performed By: #### 2 4344-4 ####[facility] LABCLIA [id number] [place] [address] [place] Lactate [Moles/Vol] 0.8 mmol/L Normal 0.5-2.2 [facility] Comment on above: Order Comment: Speci men Type: VENOUS BLOOD SPECIMENOrdering Facility: [facility] Address: [address] [id number] Performed By: #### 2 4344-4 ####[facility] LABCLIA [id number] [address] [address] [place] LITERS 2 Liters/min Normal [facility] Comment on above: Order Comment: Speci men Type: VENOUS BLOOD SPECIMENOrdering Facility: [facility] Address: [address] [place], [place] [address] Performed By: #### 2 4344-4 ####[facility] LABCLIA [id number] [place] [address] [place] Methemoglobin (Bld) [Mass fraction] 0.5 % Normal 0.0-1.5 [facility] Comment on above: Order Comment: Speci men Type: VENOUS BLOOD SPECIMENOrdering Facility: [facility] Address: [address] [place], [place] [address] Performed By: #### 2 4344-4 ####[facility] LABIA [id number] [place] [address] [place] O2 THERAPY NC = Nasal Cannula Normal [facility] Comment on above: Order Comment: Speci men Type: VENOUS BLOOD SPECIMENOrdering Facility: [facility] Address: [address] [place], [place] [address] Performed By: #### 2 4344-4 ####[facility] LABCLIA [id number] [address] [address] [place] Oxygen (BldV) [Partial pressure] 38 mm[Hg] Normal 35-45 [facility] Comment on above: Order Comment: Speci men Type: VENOUS BLOOD SPECIMENOrdering Facility: [facility] Address: [address] [place], [place] [address] Performed By: #### 2 4344-4 ####[facility] LABCLIA [id number] [address] [id number] [address] [place] Oxygen saturation in Venous blood 64 % Normal 60-85 [facility] Comment on above: Order Comment: Speci men Type: VENOUS BLOOD SPECIMENOrdering Facility: [facility] Address: [address] [place] [address] Performed By: #### 2 4344-4 ####[facility] LABCLIA [id number] [address] [address] [place] Oxyhemoglobin (BldV) [Mass fraction] 63 % Normal 60-85 [facility] Comment on above: Order Comment: Speci men Type: VENOUS BLOOD SPECIMENOrdering Facility: [facility] Address: [address] [place] [address] Performed By: #### 2 4344-4 ####[facility] LABCLIA [id number] [place] [address] [place] pH (BldV) 7.35 [pH] Normal 7.32-7.42 [facility] Comment on above: Order Comment: Speci men Type: VENOUS BLOOD SPECIMENOrdering Facility: [facility] Address: [address] [place], [place] [address] Performed By: #### 2 4344-4 ####[facility] LABCLIA [id number] [place] [address] [place] Potassium [Moles/Vol] 4.2 mmol/L Normal 3.5-5.0 [facility] Comment on above: Order Comment: Speci men Type: VENOUS BLOOD SPECIMENOrdering Facility: [facility] Address: [address] [place] [address] Performed By: #### 2 4344-4 ####[facility] LABIA [id number] [place] [address] [place] Sodium [Moles/Vol] 135 mmol/L Low 136-144 [facility] Comment on above: Order Comment: Speci men Type: VENOUS BLOOD SPECIMENOrdering Facility: [facility] Address: [address] [place] [address] Performed By: #### 2 4344-4 ####[facility] LABCLIA [id number] [place] [address] [place] BASE DEFICIT, VENOUS -1 mmol/L Normal -2-0 [facility] Comment on above: Order Comment: Speci men Type: VENOUS BLOOD SPECIMENOrdering Facility: [facility] Address: [address] [place] [address] Performed By: #### 2 4344-4 ####[facility] LABIA [id number] [place] [address] [place] Body temperature 98.6 [degF] Normal [facility] Comment on above: Order Comment: Speci men Type: VENOUS BLOOD SPECIMENOrdering Facility: [facility] Address: [address] [place] [address] Performed By: #### 2 4344-4 ####[facility] LABIA [id number] [place] [address] [place] Calcium.ionized (Bld) [Mass/Vol] 1.18 mmol/L Normal 1.08-1.30 [facility] Comment on above: Order Comment: Speci men Type: VENOUS BLOOD SPECIMENOrdering Facility: [facility] Address: [address] [place] [address] Performed By: #### 2 4344-4 ####[facility] LABIA [id number] [place] [address] [place] Calcium.ionized adjusted to pH 7.4 (BldA) [Moles/Vol] 1.14 mmol/L Normal 1.08-1.30 [facility] Comment on above: Order Comment: Speci men Type: VENOUS BLOOD SPECIMENOrdering Facility: [facility] Address: [address] [place] [address] Performed By: #### 2 4344-4 ####[facility] LABIA [id number] [place] [id number] [place] Carboxyhemoglobin (BldV) [Mass fraction] 1.6 % Normal 0.0-2.0 [facility] Comment on above: Order Comment: Speci men Type: VENOUS BLOOD SPECIMENOrdering Facility: [facility] Address: [address] [place] [address] Result Comment: Carb oxyhemoglobin Reference Range for Smokers: 2.0-8.0% Performed By: #### 2 4344-4 ####[facility] LABCLIA [id number] [place] [address] [place] CO2 (BldV) [Partial pressure] 48 mm[Hg] Normal 42-55 [facility] Comment on above: Order Comment: Speci men Type: VENOUS BLOOD SPECIMENOrdering Facility: [facility] Address: [address] [place] [address] Performed By: #### 2 4344-4 ####[facility] LABCLIA [id number] [place] [address] [place] Glucose [Mass/Vol] 108 mg/dL High 60-105 [facility] Comment on above: Order Comment: Speci men Type: VENOUS BLOOD SPECIMENOrdering Facility: [facility] Address: [address] [place] [address] Performed By: #### 2 4344-4 ####[facility] LABCLIA [id number] [place] [address] [place] HCO3 (Bld) [Moles/Vol] 24 mmol/L Normal 24-28 [facility] Comment on above: Order Comment: Speci men Type: VENOUS BLOOD SPECIMENOrdering Facility: [facility] Address: [address] [place] [address] Performed By: #### 2 4344-4 ####[facility] LABCLIA [id number] [place] [address] [place] Hematocrit (Bld) [Volume fraction] 25.8 % Low 39.0-51.0 [facility] Comment on above: Order Comment: Speci men Type: VENOUS BLOOD SPECIMENOrdering Facility: [facility] Address: [address] [place] [address] Performed By: #### 2 4344-4 ####[facility] LABCLIA [id number] [place] [address] [place] Hemoglobin (Bld) [Mass/Vol] 8.3 g/dL Low 13.0-17.0 [facility] Comment on above: Order Comment: Speci men Type: VENOUS BLOOD SPECIMENOrdering Facility: [facility] Address: [address] [place] [address] Performed By: #### 2 4344-4 ####[facility] LABCLIA [id number] [place] [address] [place] Lactate [Moles/Vol] 0.8 mmol/L Normal 0.5-2.2 [facility] Comment on above: Order Comment: Speci men Type: VENOUS BLOOD SPECIMENOrdering Facility: [facility] Address: [address] [place] [address] Performed By: #### 2 4344-4 ####[facility] LABCLIA [id number] [place] [address] [place] LITERS 2 Liters/min Normal [facility] Comment on above: Order Comment: Speci men Type: VENOUS BLOOD SPECIMENOrdering Facility: [facility] Address: [address] [place] [address] Performed By: #### 2 4344-4 ####[facility] LABCLIA [id number] [place] [address] [place] Methemoglobin (Bld) [Mass fraction] 0.8 % Normal 0.0-1.5 [facility] Comment on above: Order Comment: Speci men Type: VENOUS BLOOD SPECIMENOrdering Facility: [facility] Address: [address] [place] [address] Performed By: #### 2 4344-4 ####[facility] LABCLIA [id number] [address] [address] [place] O2 THERAPY NC = Nasal Cannula Normal [facility] Comment on above: Order Comment: Speci men Type: VENOUS BLOOD SPECIMENOrdering Facility: [facility] Address: [address] [place], [place] [address] Performed By: #### 2 4344-4 ####[facility] LABCLIA [id number] [place] [address] [place] Oxygen (BldV) [Partial pressure] 40 mm[Hg] Normal 35-45 [facility] Comment on above: Order Comment: Speci men Type: VENOUS BLOOD SPECIMENOrdering Facility: [facility] Address: [address] [place], [place] [address] Performed By: #### 2 4344-4 ####[facility] LABIA [id number] [place] [address] [place] Oxygen saturation in Venous blood 66 % Normal 60-85 [facility] Comment on above: Order Comment: Speci men Type: VENOUS BLOOD SPECIMENOrdering Facility: [facility] Address: [address] [place], [place] [address] Performed By: #### 2 4344-4 ####[facility] LABIA [id number] [place] [id number] [place] Oxyhemoglobin (BldV) [Mass fraction] 64 % Normal 60-85 [facility] Comment on above: Order Comment: Speci men Type: VENOUS BLOOD SPECIMENOrdering Facility: [facility] Address: [address] [place] [address] Performed By: #### 2 4344-4 ####[facility] LABCLIA [id number] [address] [address] [place] pH (BldV) 7.33 [pH] Normal 7.32-7.42 [facility] Comment on above: Order Comment: Speci men Type: VENOUS BLOOD SPECIMENOrdering Facility: [facility] Address: [address] [id number] Performed By: #### 2 4344-4 ####[facility] LABCLIA [id number] [place] [address] [place] Potassium [Moles/Vol] 4.3 mmol/L Normal 3.5-5.0 [facility] Comment on above: Order Comment: Speci men Type: VENOUS BLOOD SPECIMENOrdering Facility: [facility] Address: [address] [place], [place] [address] Performed By: #### 2 4344-4 ####[facility] LABCLIA [id number] [place] [address] [place] Sodium [Moles/Vol] 136 mmol/L Normal 136-144 [facility] Comment on above: Order Comment: Speci men Type: VENOUS BLOOD SPECIMENOrdering Facility: [facility] Address: [address] [place] [address] Performed By: #### 2 4344-4 ####[facility] LABCLIA [id number] [place] [address] [place] Base excess Calc (BldV) [Moles/Vol] 1 mmol/L Normal 0-2 [facility] Comment on above: Order Comment: Speci men Type: VENOUS BLOOD SPECIMENOrdering Facility: [facility] Address: [address] [place], [place] [address] Performed By: #### 2 4344-4 ####[facility] LABCLIA [id number] [place] [id number] [place] Body temperature 98.6 [degF] Normal [facility] Comment on above: Order Comment: Speci men Type: VENOUS BLOOD SPECIMENOrdering Facility: [facility] Address: [address] [place], [place] [address] Performed By: #### 2 4344-4 ####[facility] LABCLIA [id number] [place] [address] [place] Calcium.ionized (Bld) [Mass/Vol] 1.23 mmol/L Normal 1.08-1.30 [facility] Comment on above: Order Comment: Speci men Type: VENOUS BLOOD SPECIMENOrdering Facility: [facility] Address: [address] [place] [address] Performed By: #### 2 4344-4 ####[facility] LABIA [id number] [place] [address] [place] Calcium.ionized adjusted to pH 7.4 (BldA) [Moles/Vol] 1.17 mmol/L Normal 1.08-1.30 [facility] Comment on above: Order Comment: Speci men Type: VENOUS BLOOD SPECIMENOrdering Facility: [facility] Address: [address] [place] [address] Performed By: #### 2 4344-4 ####[facility] [id number] [place] [address] [place] Carboxyhemoglobin (BldV) [Mass fraction] 1.1 % Normal 0.0-2.0 [facility] Comment on above: Order Comment: Speci men Type: VENOUS BLOOD SPECIMENOrdering Facility: [facility] Address: [address] [place] [address] Result Comment: Carb oxyhemoglobin Reference Range for Smokers: 2.0-8.0% Performed By: #### 2 4344-4 ####[facility] LABIA [id number] [place] [address] [place] CO2 (BldV) [Partial pressure] 57 mm[Hg] High 42-55 [facility] Comment on above: Order Comment: Speci men Type: VENOUS BLOOD SPECIMENOrdering Facility: [facility] Address: [address] [place] [address] Performed By: #### 2 4344-4 ####[facility] LABIA [id number] [place] [address] [place] Glucose [Mass/Vol] 87 mg/dL Normal 60-105 [facility] Comment on above: Order Comment: Speci men Type: VENOUS BLOOD SPECIMENOrdering Facility: [facility] Address: [address] [place] [address] Performed By: #### 2 4344-4 ####[facility] LABCLIA [id number] [place] [address] [place] HCO3 (Bld) [Moles/Vol] 27 mmol/L Normal 24-28 [facility] Comment on above: Order Comment: Speci men Type: VENOUS BLOOD SPECIMENOrdering Facility: [facility] Address: [address] [place] [address] Performed By: #### 2 4344-4 ####[facility] LABCLIA [id number] [place] [address] [place] Hematocrit (Bld) [Volume fraction] 27.6 % Low 39.0-51.0 [facility] Comment on above: Order Comment: Speci men Type: VENOUS BLOOD SPECIMENOrdering Facility: [facility] Address: [address] [place] [address] Performed By: #### 2 4344-4 ####[facility] LABCLIA [id number] [place] [address] [place] Hemoglobin (Bld) [Mass/Vol] 8.9 g/dL Low 13.0-17.0 [facility] Comment on above: Order Comment: Speci men Type: VENOUS BLOOD SPECIMENOrdering Facility: [facility] Address: [address] [place] [address] Performed By: #### 2 4344-4 ####[facility] LABCLIA [id number] [place] [id number] [place] Lactate [Moles/Vol] 1.5 mmol/L Normal 0.5-2.2 [facility] Comment on above: Order Comment: Speci men Type: VENOUS BLOOD SPECIMENOrdering Facility: [facility] Address: [address] [id number] Performed By: #### 2 4344-4 ####[facility] LABCLIA [id number] [address] [address] [place] LITERS 2 Liters/min Normal [facility] Comment on above: Order Comment: Speci men Type: VENOUS BLOOD SPECIMENOrdering Facility: [facility] Address: [address] [id number] Performed By: #### 2 4344-4 ####[facility] LABCLIA [id number] [place] [address] [place] Methemoglobin (Bld) [Mass fraction] 1.4 % Normal 0.0-1.5 [facility] Comment on above: Order Comment: Speci men Type: VENOUS BLOOD SPECIMENOrdering Facility: [facility] Address: [address] [place], [place] [address] Performed By: #### 2 4344-4 ####[facility] LABIA [id number] [place] [address] [place] O2 THERAPY NC = Nasal Cannula Normal [facility] Comment on above: Order Comment: Speci men Type: VENOUS BLOOD SPECIMENOrdering Facility: [facility] Address: [address] [id number] Performed By: #### 2 4344-4 ####[facility] LABCLIA [id number] [address] [address] [place] Oxygen (BldV) [Partial pressure] 40 mm[Hg] Normal 35-45 [facility] Comment on above: Order Comment: Speci men Type: VENOUS BLOOD SPECIMENOrdering Facility: [facility] Address: [address] [id number] Performed By: #### 2 4344-4 ####[facility] LABCLIA [id number] [place] [address] [id number] [address] [place] Oxygen saturation in Venous blood 65 % Normal 60-85 [facility] Comment on above: Order Comment: Speci men Type: VENOUS BLOOD SPECIMENOrdering Facility: [facility] Address: [address] [place], [place] [address] Performed By: #### 2 4344-4 ####[facility] LABCLIA [id number] [address] [address] [place] Oxyhemoglobin (BldV) [Mass fraction] 63 % Normal 60-85 [facility] Comment on above: Order Comment: Speci men Type: VENOUS BLOOD SPECIMENOrdering Facility: [facility] Address: [address] [place] [address] Performed By: #### 2 4344-4 ####[facility] LABCLIA [id number] [place] [address] [place] pH (BldV) 7.30 [pH] Low 7.32-7.42 [facility] Comment on above: Order Comment: Speci men Type: VENOUS BLOOD SPECIMENOrdering Facility: [facility] Address: [address] [place] [address] Performed By: #### 2 4344-4 ####[facility] LABCLIA [id number] [place] [address] [place] Potassium [Moles/Vol] 4.1 mmol/L Normal 3.5-5.0 [facility] Comment on above: Order Comment: Speci men Type: VENOUS BLOOD SPECIMENOrdering Facility: [facility] Address: [address] [place] [address] Performed By: #### 2 4344-4 ####[facility] LABCLIA [id number] [place] [address] [place] Sodium [Moles/Vol] 135 mmol/L Low 136-144 [facility] Comment on above: Order Comment: Speci men Type: VENOUS BLOOD SPECIMENOrdering Facility: [facility] Address: [address] [place] [address] Performed By: #### 2 4344-4 ####[facility] LABCLIA [id number] [place] [address] [place] Base excess Calc (BldV) [Moles/Vol] 1 mmol/L Normal 0-2 [facility] Comment on above: Order Comment: Speci men Type: VENOUS BLOOD SPECIMENOrdering Facility: [facility] Address: [address] [place] [address] Performed By: #### 2 4344-4 ####[facility] LABIA [id number] [place] [address] [place] Body temperature 98.6 [degF] Normal [facility] Comment on above: Order Comment: Speci men Type: VENOUS BLOOD SPECIMENOrdering Facility: [facility] Address: [address] [place] [address] Performed By: #### 2 4344-4 ####[facility] LABIA [id number] [place] [address] [place] Calcium.ionized (Bld) [Mass/Vol] 1.21 mmol/L Normal 1.08-1.30 [facility] Comment on above: Order Comment: Speci men Type: VENOUS BLOOD SPECIMENOrdering Facility: [facility] Address: [address] [place] [address] Performed By: #### 2 4344-4 ####[facility] LABIA [id number] [place] [address] [place] Calcium.ionized adjusted to pH 7.4 (BldA) [Moles/Vol] 1.18 mmol/L Normal 1.08-1.30 [facility] Comment on above: Order Comment: Speci men Type: VENOUS BLOOD SPECIMENOrdering Facility: [facility] Address: [address] [place] [address] Performed By: #### 2 4344-4 ####[facility] LABIA [id number] [place] [address] [place] Carboxyhemoglobin (BldV) [Mass fraction] 1.1 % Normal 0.0-2.0 [facility] Comment on above: Order Comment: Speci men Type: VENOUS BLOOD SPECIMENOrdering Facility: [facility] Address: [address] [place] [address] Result Comment: Carb oxyhemoglobin Reference Range for Smokers: 2.0-8.0% Performed By: #### 2 4344-4 ####[facility] LABCLIA [id number] [place] [address] [place] CO2 (BldV) [Partial pressure] 48 mm[Hg] Normal 42-55 [facility] Comment on above: Order Comment: Speci men Type: VENOUS BLOOD SPECIMENOrdering Facility: [facility] Address: [address] [place] [address] Performed By: #### 2 4344-4 ####[facility] LABCLIA [id number] [place] [address] [place] Glucose [Mass/Vol] 149 mg/dL High 60-105 [facility] Comment on above: Order Comment: Speci men Type: VENOUS BLOOD SPECIMENOrdering Facility: [facility] Address: [address] [place] [address] Performed By: #### 2 4344-4 ####[facility] LABIA [id number] [place] [address] [place] HCO3 (Bld) [Moles/Vol] 26 mmol/L Normal 24-28 [facility] Comment on above: Order Comment: Speci men Type: VENOUS BLOOD SPECIMENOrdering Facility: [facility] Address: [address] [place] [address] Performed By: #### 2 4344-4 ####[facility] LABCLIA [id number] [place] [address] [place] Hematocrit (Bld) [Volume fraction] 26.5 % Low 39.0-51.0 [facility] Comment on above: Order Comment: Speci men Type: VENOUS BLOOD SPECIMENOrdering Facility: [facility] Address: [address] [place] [address] Performed By: #### 2 4344-4 ####[facility] LABCLIA [id number] [place] [address] [place] Hemoglobin (Bld) [Mass/Vol] 8.5 g/dL Low 13.0-17.0 [facility] Comment on above: Order Comment: Speci men Type: VENOUS BLOOD SPECIMENOrdering Facility: [facility] Address: [address] [place] [address] Performed By: #### 2 4344-4 ####[facility] LABCLIA [id number] [place] [address] [place] Lactate [Moles/Vol] 1.2 mmol/L Normal 0.5-2.2 [facility] Comment on above: Order Comment: Speci men Type: VENOUS BLOOD SPECIMENOrdering Facility: [facility] Address: [address] [place] [address] Performed By: #### 2 4344-4 ####[facility] LABCLIA [id number] [place] [address] [place] LITERS 2 Liters/min Normal [facility] Comment on above: Order Comment: Speci men Type: VENOUS BLOOD SPECIMENOrdering Facility: [facility] Address: [address] [place] [address] Performed By: #### 2 4344-4 ####[facility] LABCLIA [id number] [place] [address] [place] Methemoglobin (Bld) [Mass fraction] 0.4 % Normal 0.0-1.5 [facility] Comment on above: Order Comment: Speci men Type: VENOUS BLOOD SPECIMENOrdering Facility: [facility] Address: [address] [place] [address] Performed By: #### 2 4344-4 ####[facility] LABCLIA [id number] [address] [address] [place] O2 THERAPY NC = Nasal Cannula Normal [facility] Comment on above: Order Comment: Speci men Type: VENOUS BLOOD SPECIMENOrdering Facility: [facility] Address: [address] [place], [place] [address] Performed By: #### 2 4344-4 ####[facility] LABCLIA [id number] [address] [address] [place] Oxygen (BldV) [Partial pressure] 34 mm[Hg] Low 35-45 [facility] Comment on above: Order Comment: Speci men Type: VENOUS BLOOD SPECIMENOrdering Facility: [facility] Address: [address] [place], [place] [address] Performed By: #### 2 4344-4 ####[facility] LABCLIA [id number] [place] [address] [place] Oxygen saturation in Venous blood 55 % Low 60-85 [facility] Comment on above: Order Comment: Speci men Type: VENOUS BLOOD SPECIMENOrdering Facility: [facility] Address: [address] [place], [place] [address] Performed By: #### 2 4344-4 ####[facility] LABIA [id number] [address] [address] [place] Oxyhemoglobin (BldV) [Mass fraction] 54 % Low 60-85 [facility] Comment on above: Order Comment: Speci men Type: VENOUS BLOOD SPECIMENOrdering Facility: [facility] Address: [address] [place], [place] [address] Performed By: #### 2 4344-4 ####[facility] LABCLIA [id number] [address] [address] [place] pH (BldV) 7.36 [pH] Normal 7.32-7.42 [facility] Comment on above: Order Comment: Speci men Type: VENOUS BLOOD SPECIMENOrdering Facility: [facility] Address: [address] [id number] Performed By: #### 2 4344-4 ####[facility] LABCLIA [id number] [address] [address] [place] Potassium [Moles/Vol] 4.6 mmol/L Normal 3.5-5.0 [facility] Comment on above: Order Comment: Speci men Type: VENOUS BLOOD SPECIMENOrdering Facility: [facility] Address: [address] [place], [place] [address] Performed By: #### 2 4344-4 ####[facility] LABCLIA [id number] [place] [address] [place] Sodium [Moles/Vol] 135 mmol/L Low 136-144 [facility] Comment on above: Order Comment: Speci men Type: VENOUS BLOOD SPECIMENOrdering Facility: [facility] Address: [address] [place], [place] [address] Performed By: #### 2 4344-4 ####[facility] LABCLIA [id number] [place] [address] [place] Base excess Calc (BldV) [Moles/Vol] 1 mmol/L Normal 0-2 [facility] Comment on above: Order Comment: Speci men Type: VENOUS BLOOD SPECIMENOrdering Facility: [facility] Address: [address] [place], [place] [address] Performed By: #### 2 4344-4 ####[facility] LABCLIA [id number] [place] [address] [place] Body temperature 98.6 [degF] Normal [facility] Comment on above: Order Comment: Speci men Type: VENOUS BLOOD SPECIMENOrdering Facility: [facility] Address: [address] [place], [place] [address] Performed By: #### 2 4344-4 ####[facility] LABCLIA [id number] [place] [address] [place] Calcium.ionized (Bld) [Mass/Vol] 1.22 mmol/L Normal 1.08-1.30 [facility] Comment on above: Order Comment: Speci men Type: VENOUS BLOOD SPECIMENOrdering Facility: [facility] Address: [address] [place] [address] Performed By: #### 2 4344-4 ####[facility] LABIA [id number] [place] [address] [place] Calcium.ionized adjusted to pH 7.4 (BldA) [Moles/Vol] 1.18 mmol/L Normal 1.08-1.30 [facility] Comment on above: Order Comment: Speci men Type: VENOUS BLOOD SPECIMENOrdering Facility: [facility] Address: [address] [place] [address] Performed By: #### 2 4344-4 ####[facility] LABIA [id number] [place] [address] [place] Carboxyhemoglobin (BldV) [Mass fraction] 1.4 % Normal 0.0-2.0 [facility] Comment on above: Order Comment: Speci men Type: VENOUS BLOOD SPECIMENOrdering Facility: [facility] Address: [address] [place] [address] Result Comment: Carb oxyhemoglobin Reference Range for Smokers: 2.0-8.0% Performed By: #### 2 4344-4 ####[facility] LABIA [id number] [place] [address] [place] CO2 (BldV) [Partial pressure] 49 mm[Hg] Normal 42-55 [facility] Comment on above: Order Comment: Speci men Type: VENOUS BLOOD SPECIMENOrdering Facility: [facility] Address: [address] [place] [address] Performed By: #### 2 4344-4 ####[facility] LABCLIA [id number] [place] [address] [place] Glucose [Mass/Vol] 179 mg/dL High 60-105 [facility] Comment on above: Order Comment: Speci men Type: VENOUS BLOOD SPECIMENOrdering Facility: [facility] Address: [address] [place] [address] Performed By: #### 2 4344-4 ####[facility] LABCLIA [id number] [place] [address] [place] HCO3 (Bld) [Moles/Vol] 26 mmol/L Normal 24-28 [facility] Comment on above: Order Comment: Speci men Type: VENOUS BLOOD SPECIMENOrdering Facility: [facility] Address: [address] [place] [address] Performed By: #### 2 4344-4 ####[facility] LABCLIA [id number] [place] [address] [place] Hematocrit (Bld) [Volume fraction] 25.3 % Low 39.0-51.0 [facility] Comment on above: Order Comment: Speci men Type: VENOUS BLOOD SPECIMENOrdering Facility: [facility] Address: [address] [place] [address] Performed By: #### 2 4344-4 ####[facility] LABCLIA [id number] [place] [address] [place] Hemoglobin (Bld) [Mass/Vol] 8.1 g/dL Low 13.0-17.0 [facility] Comment on above: Order Comment: Speci men Type: VENOUS BLOOD SPECIMENOrdering Facility: [facility] Address: [address] [place] [address] Performed By: #### 2 4344-4 ####[facility] LABCLIA [id number] [place] [address] [place] Lactate [Moles/Vol] 1.1 mmol/L Normal 0.5-2.2 [facility] Comment on above: Order Comment: Speci men Type: VENOUS BLOOD SPECIMENOrdering Facility: [facility] Address: [address] [id number] Performed By: #### 2 4344-4 ####[facility] LABCLIA [id number] [address] [address] [place] LITERS 2 Liters/min Normal [facility] Comment on above: Order Comment: Speci men Type: VENOUS BLOOD SPECIMENOrdering Facility: [facility] Address: [address] [place], [place] [address] Performed By: #### 2 4344-4 ####[facility] LABIA [id number] [place] [address] [place] Methemoglobin (Bld) [Mass fraction] 0.7 % Normal 0.0-1.5 [facility] Comment on above: Order Comment: Speci men Type: VENOUS BLOOD SPECIMENOrdering Facility: [facility] Address: [address] [place] [address] Performed By: #### 2 4344-4 ####[facility] LABIA [id number] [place] [address] [place] O2 THERAPY NC = Nasal Cannula Normal [facility] Comment on above: Order Comment: Speci men Type: VENOUS BLOOD SPECIMENOrdering Facility: [facility] Address: [address] [place], [place] [address] Performed By: #### 2 4344-4 ####[facility] LABCLIA [id number] [address] [place] [id number] [place] Oxygen (BldV) [Partial pressure] 33 mm[Hg] Low 35-45 [facility] Comment on above: Order Comment: Speci men Type: VENOUS BLOOD SPECIMENOrdering Facility: [facility] Address: [address] [place], [place] [address] Performed By: #### 2 4344-4 ####[facility] LABCLIA [id number] [address] [address] [place] Oxygen saturation in Venous blood 55 % Low 60-85 [facility] Comment on above: Order Comment: Speci men Type: VENOUS BLOOD SPECIMENOrdering Facility: [facility] Address: [address] [place] [address] Performed By: #### 2 4344-4 ####[facility] LABCLIA [id number] [address] [address] [place] Oxyhemoglobin (BldV) [Mass fraction] 54 % Low 60-85 [facility] Comment on above: Order Comment: Speci men Type: VENOUS BLOOD SPECIMENOrdering Facility: [facility] Address: [address] [place] [address] Performed By: #### 2 4344-4 ####[facility] LABCLIA [id number] [place] [address] [place] pH (BldV) 7.35 [pH] Normal 7.32-7.42 [facility] Comment on above: Order Comment: Speci men Type: VENOUS BLOOD SPECIMENOrdering Facility: [facility] Address: [address] [place] [address] Performed By: #### 2 4344-4 ####[facility] LABCLIA [id number] [address] [address] [place] Potassium [Moles/Vol] 4.5 mmol/L Normal 3.5-5.0 [facility] Comment on above: Order Comment: Speci men Type: VENOUS BLOOD SPECIMENOrdering Facility: [facility] Address: [address] [place] [address] Performed By: #### 2 4344-4 ####[facility] LABCLIA [id number] [place] [address] [place] Sodium [Moles/Vol] 134 mmol/L Low 136-144 [facility] Comment on above: Order Comment: Speci men Type: VENOUS BLOOD SPECIMENOrdering Facility: [facility] Address: [address] [place] [address] Performed By: #### 2 4344-4 ####[facility] LABCLIA [id number] [place] [address] [place] Base excess Calc (BldV) [Moles/Vol] 1 mmol/L Normal 0-2 [facility] Comment on above: Order Comment: Speci men Type: VENOUS BLOOD SPECIMENOrdering Facility: [facility] Address: [address] [place] [address] Performed By: #### 2 4344-4 ####[facility] LABIA [id number] [place] [address] [place] Body temperature 98.6 [degF] Normal [facility] Comment on above: Order Comment: Speci men Type: VENOUS BLOOD SPECIMENOrdering Facility: [facility] Address: [address] [place] [address] Performed By: #### 2 4344-4 ####[facility] LABIA [id number] [place] [address] [place] Calcium.ionized (Bld) [Mass/Vol] 1.18 mmol/L Normal 1.08-1.30 [facility] Comment on above: Order Comment: Speci men Type: VENOUS BLOOD SPECIMENOrdering Facility: [facility] Address: [address] [place] [address] Performed By: #### 2 4344-4 ####[facility] LABIA [id number] [place] [address] [place] Calcium.ionized adjusted to pH 7.4 (BldA) [Moles/Vol] 1.17 mmol/L Normal 1.08-1.30 [facility] Comment on above: Order Comment: Speci men Type: VENOUS BLOOD SPECIMENOrdering Facility: [facility] Address: [address] [place] [address] Performed By: #### 2 4344-4 ####[facility] LABCLIA [id number] [place] [address] [place] Carboxyhemoglobin (BldV) [Mass fraction] 1.5 % Normal 0.0-2.0 [facility] Comment on above: Order Comment: Speci men Type: VENOUS BLOOD SPECIMENOrdering Facility: [facility] Address: [address] [place] [address] Result Comment: Carb oxyhemoglobin Reference Range for Smokers: 2.0-8.0% Performed By: #### 2 4344-4 ####[facility] LABCLIA [id number] [place] [address] [place] CO2 (BldV) [Partial pressure] 46 mm[Hg] Normal 42-55 [facility] Comment on above: Order Comment: Speci men Type: VENOUS BLOOD SPECIMENOrdering Facility: [facility] Address: [address] [place] [address] Performed By: #### 2 4344-4 ####[facility] LABCLIA [id number] [place] [address] [place] Glucose [Mass/Vol] 135 mg/dL High 60-105 [facility] Comment on above: Order Comment: Speci men Type: VENOUS BLOOD SPECIMENOrdering Facility: [facility] Address: [address] [place] [address] Performed By: #### 2 4344-4 ####[facility] LABCLIA [id number] [place] [address] [place] HCO3 (Bld) [Moles/Vol] 26 mmol/L Normal 24-28 [facility] Comment on above: Order Comment: Speci men Type: VENOUS BLOOD SPECIMENOrdering Facility: [facility] Address: [address] [place] [address] Performed By: #### 2 4344-4 ####[facility] LABCLIA [id number] [place] [address] [place] Hematocrit (Bld) [Volume fraction] 26.6 % Low 39.0-51.0 [facility] Comment on above: Order Comment: Speci men Type: VENOUS BLOOD SPECIMENOrdering Facility: [facility] Address: [address] [place] [address] Performed By: #### 2 4344-4 ####[facility] LABCLIA [id number] [place] [address] [place] Hemoglobin (Bld) [Mass/Vol] 8.6 g/dL Low 13.0-17.0 [facility] Comment on above: Order Comment: Speci men Type: VENOUS BLOOD SPECIMENOrdering Facility: [facility] Address: [address] [place] [address] Performed By: #### 2 4344-4 ####[facility] LABCLIA [id number] [place] [address] [place] Lactate [Moles/Vol] 1.3 mmol/L Normal 0.5-2.2 [facility] Comment on above: Order Comment: Speci men Type: VENOUS BLOOD SPECIMENOrdering Facility: [facility] Address: [address] [place] [address] Performed By: #### 2 4344-4 ####[facility] LABIA [id number] [place] [address] [place] Methemoglobin (Bld) [Mass fraction] 0.6 % Normal 0.0-1.5 [facility] Comment on above: Order Comment: Speci men Type: VENOUS BLOOD SPECIMENOrdering Facility: [facility] Address: [address] [place] [address] Performed By: #### 2 4344-4 ####[facility] LABIA [id number] [place] [address] [place] O2 THERAPY NC = Nasal Cannula Normal [facility] Comment on above: Order Comment: Speci men Type: VENOUS BLOOD SPECIMENOrdering Facility: [facility] Address: [address] [place] [address] Performed By: #### 2 4344-4 ####[facility] LABCLIA [id number] [place] [address] [place] Oxygen (BldV) [Partial pressure] 34 mm[Hg] Low 35-45 [facility] Comment on above: Order Comment: Speci men Type: VENOUS BLOOD SPECIMENOrdering Facility: [facility] Address: [address] [place] [address] Performed By: #### 2 4344-4 ####[facility] LABCLIA [id number] [place] [address] [place] Oxygen saturation in Venous blood 58 % Low 60-85 [facility] Comment on above: Order Comment: Speci men Type: VENOUS BLOOD SPECIMENOrdering Facility: [facility] Address: [address] [place] [address] Performed By: #### 2 4344-4 ####[facility] LABCLIA [id number] [place] [address] [place] Oxyhemoglobin (BldV) [Mass fraction] 57 % Low 60-85 [facility] Comment on above: Order Comment: Speci men Type: VENOUS BLOOD SPECIMENOrdering Facility: [facility] Address: [address] [place] [address] Performed By: #### 2 4344-4 ####[facility] LABCLIA [id number] [place] [address] [place] pH (BldV) 7.37 [pH] Normal 7.32-7.42 [facility] Comment on above: Order Comment: Speci men Type: VENOUS BLOOD SPECIMENOrdering Facility: [facility] Address: [address] [place] [address] Performed By: #### 2 4344-4 ####[facility] LABCLIA [id number] [place] [address] [place] Potassium [Moles/Vol] 4.6 mmol/L Normal 3.5-5.0 [facility] Comment on above: Order Comment: Speci men Type: VENOUS BLOOD SPECIMENOrdering Facility: [facility] Address: [address] [place] [address] Performed By: #### 2 4344-4 ####[facility] LABCLIA [id number] [place] [address] [place] Sodium [Moles/Vol] 135 mmol/L Low 136-144 [facility] Comment on above: Order Comment: Speci men Type: VENOUS BLOOD SPECIMENOrdering Facility: [facility] Address: [address] [place] [address] Performed By: #### 2 4344-4 ####[facility] LABIA [id number] [place] [address] [place] Base excess Calc (BldV) [Moles/Vol] 3 mmol/L High 0-2 [facility] Comment on above: Order Comment: Speci men Type: VENOUS BLOOD SPECIMENOrdering Facility: [facility] Address: [address] [place] [address] Performed By: #### 2 4344-4 ####[facility] LABIA [id number] [place] [address] [place] Body temperature 98.6 [degF] Normal [facility] Comment on above: Order Comment: Speci men Type: VENOUS BLOOD SPECIMENOrdering Facility: [facility] Address: [address] [place] [address] Performed By: #### 2 4344-4 ####[facility] LABIA [id number] [place] [address] [place] Calcium.ionized (Bld) [Mass/Vol] 1.22 mmol/L Normal 1.08-1.30 [facility] Comment on above: Order Comment: Speci men Type: VENOUS BLOOD SPECIMENOrdering Facility: [facility] Address: [address] [place] [address] Performed By: #### 2 4344-4 ####[facility] LABIA [id number] [place] [address] [place] Calcium.ionized adjusted to pH 7.4 (BldA) [Moles/Vol] 1.19 mmol/L Normal 1.08-1.30 [facility] Comment on above: Order Comment: Speci men Type: VENOUS BLOOD SPECIMENOrdering Facility: [facility] Address: [address] [place] [address] Performed By: #### 2 4344-4 ####[facility] LABIA [id number] [place] [address] [place] Carboxyhemoglobin (BldV) [Mass fraction] 1.3 % Normal 0.0-2.0 [facility] Comment on above: Order Comment: Speci men Type: VENOUS BLOOD SPECIMENOrdering Facility: [facility] Address: [address] [place] [address] Result Comment: Carb oxyhemoglobin Reference Range for Smokers: 2.0-8.0% Performed By: #### 2 4344-4 ####[facility] LABIA [id number] [place] [address] [place] CO2 (BldV) [Partial pressure] 50 mm[Hg] Normal 42-55 [facility] Comment on above: Order Comment: Speci men Type: VENOUS BLOOD SPECIMENOrdering Facility: [facility] Address: [address] [place] [address] Performed By: #### 2 4344-4 ####[facility] LABIA [id number] [place] [address] [place] Glucose [Mass/Vol] 119 mg/dL High 60-105 [facility] Comment on above: Order Comment: Speci men Type: VENOUS BLOOD SPECIMENOrdering Facility: [facility] Address: [address] [place] [address] Performed By: #### 2 4344-4 ####[facility] LABCLIA [id number] [place] [address] [place] HCO3 (Bld) [Moles/Vol] 28 mmol/L Normal 24-28 [facility] Comment on above: Order Comment: Speci men Type: VENOUS BLOOD SPECIMENOrdering Facility: [facility] Address: [address] [place] [address] Performed By: #### 2 4344-4 ####[facility] LABCLIA [id number] [place] [address] [place] Hematocrit (Bld) [Volume fraction] 25.3 % Low 39.0-51.0 [facility] Comment on above: Order Comment: Speci men Type: VENOUS BLOOD SPECIMENOrdering Facility: [facility] Address: [address] [place] [address] Performed By: #### 2 4344-4 ####[facility] LABCLIA [id number] [place] [address] [place] Hemoglobin (Bld) [Mass/Vol] 8.1 g/dL Low 13.0-17.0 [facility] Comment on above: Order Comment: Speci men Type: VENOUS BLOOD SPECIMENOrdering Facility: [facility] Address: [address] [place] [address] Performed By: #### 2 4344-4 ####[facility] LABCLIA [id number] [place] [address] [place] Lactate [Moles/Vol] 1.8 mmol/L Normal 0.5-2.2 [facility] Comment on above: Order Comment: Speci men Type: VENOUS BLOOD SPECIMENOrdering Facility: [facility] Address: [address] [place] [address] Performed By: #### 2 4344-4 ####[facility] LABCLIA [id number] [place] [address] [place] LITERS 2 Liters/min Normal [facility] Comment on above: Order Comment: Speci men Type: VENOUS BLOOD SPECIMENOrdering Facility: [facility] Address: [address] [place] [address] Performed By: #### 2 4344-4 ####[facility] LABCLIA [id number] [address] [address] [place] Methemoglobin (Bld) [Mass fraction] 0.6 % Normal 0.0-1.5 [facility] Comment on above: Order Comment: Speci men Type: VENOUS BLOOD SPECIMENOrdering Facility: [facility] Address: [address] [place] [address] Performed By: #### 2 4344-4 ####[facility] LABCLIA [id number] [place] [address] [place] O2 THERAPY NC = Nasal Cannula Normal [facility] Comment on above: Order Comment: Speci men Type: VENOUS BLOOD SPECIMENOrdering Facility: [facility] Address: [address] [place] [address] Performed By: #### 2 4344-4 ####[facility] LABCLIA [id number] [place] [address] [place] Oxygen (BldV) [Partial pressure] 36 mm[Hg] Normal 35-45 [facility] Comment on above: Order Comment: Speci men Type: VENOUS BLOOD SPECIMENOrdering Facility: [facility] Address: [address] [place] [address] Performed By: #### 2 4344-4 ####[facility] LABCLIA [id number] [place] [address] [place] Oxygen saturation in Venous blood 64 % Normal 60-85 [facility] Comment on above: Order Comment: Speci men Type: VENOUS BLOOD SPECIMENOrdering Facility: [facility] Address: [address] [place], [place] [address] Performed By: #### 2 4344-4 ####[facility] LABCLIA [id number] [place] [address] [place] Oxyhemoglobin (BldV) [Mass fraction] 63 % Normal 60-85 [facility] Comment on above: Order Comment: Speci men Type: VENOUS BLOOD SPECIMENOrdering Facility: [facility] Address: [address] [place] [address] Performed By: #### 2 4344-4 ####[facility] LABCLIA [id number] [place] [address] [place] pH (BldV) 7.36 [pH] Normal 7.32-7.42 [facility] Comment on above: Order Comment: Speci men Type: VENOUS BLOOD SPECIMENOrdering Facility: [facility] Address: [address] [place] [address] Performed By: #### 2 4344-4 ####[facility] LABIA [id number] [place] [address] [place] Potassium [Moles/Vol] 4.6 mmol/L Normal 3.5-5.0 [facility] Comment on above: Order Comment: Speci men Type: VENOUS BLOOD SPECIMENOrdering Facility: [facility] Address: [address] [place] [address] Performed By: #### 2 4344-4 ####[facility] LABIA [id number] [place] [address] [place] Sodium [Moles/Vol] 135 mmol/L Low 136-144 [facility] Comment on above: Order Comment: Speci men Type: VENOUS BLOOD SPECIMENOrdering Facility: [facility] Address: [address] [place] [address] Performed By: #### 2 4344-4 ####[facility] LABCLIA [id number] [place] [address] [place] Base excess Calc (BldV) [Moles/Vol] 2 mmol/L Normal 0-2 [facility] Comment on above: Order Comment: Speci men Type: VENOUS BLOOD SPECIMENOrdering Facility: [facility] Address: [address] [place] [address] Performed By: #### 2 4344-4 ####[facility] LABIA [id number] [place] [id number] [place] Body temperature 98.6 [degF] Normal [facility] Comment on above: Order Comment: Speci men Type: VENOUS BLOOD SPECIMENOrdering Facility: [facility] Address: [address] [place] [address] Performed By: #### 2 4344-4 ####[facility] [id number] [place] [address] [place] Calcium.ionized (Bld) [Mass/Vol] 1.19 mmol/L Normal 1.08-1.30 [facility] Comment on above: Order Comment: Speci men Type: VENOUS BLOOD SPECIMENOrdering Facility: [facility] Address: [address] [place] [address] Performed By: #### 2 4344-4 ####[facility] [id number] [place] [address] [place] Calcium.ionized adjusted to pH 7.4 (BldA) [Moles/Vol] 1.15 mmol/L Normal 1.08-1.30 [facility] Comment on above: Order Comment: Speci men Type: VENOUS BLOOD SPECIMENOrdering Facility: [facility] Address: [address] [place], [place] [address] Performed By: #### 2 4344-4 ####[facility] [id number] [place] [address] [place] Carboxyhemoglobin (BldV) [Mass fraction] 1.6 % Normal 0.0-2.0 [facility] Comment on above: Order Comment: Speci men Type: VENOUS BLOOD SPECIMENOrdering Facility: [facility] Address: [address] [place], [place] [id number] Result Comment: Carb oxyhemoglobin Reference Range for Smokers: 2.0-8.0% Performed By: #### 2 4344-4 ####[facility] LABCLIA [id number] [place] [address] [place] CO2 (BldV) [Partial pressure] 53 mm[Hg] Normal 42-55 [facility] Comment on above: Order Comment: Speci men Type: VENOUS BLOOD SPECIMENOrdering Facility: [facility] Address: [address] [place] [address] Performed By: #### 2 4344-4 ####[facility] LABCLIA [id number] [place] [address] [place] Glucose [Mass/Vol] 167 mg/dL High 60-105 [facility] Comment on above: Order Comment: Speci men Type: VENOUS BLOOD SPECIMENOrdering Facility: [facility] Address: [address] [place] [address] Performed By: #### 2 4344-4 ####[facility] LABCLIA [id number] [place] [address] [place] HCO3 (Bld) [Moles/Vol] 28 mmol/L Normal 24-28 [facility] Comment on above: Order Comment: Speci men Type: VENOUS BLOOD SPECIMENOrdering Facility: [facility] Address: [address] [place] [address] Performed By: #### 2 4344-4 ####[facility] LABCLIA [id number] [place] [address] [place] Hematocrit (Bld) [Volume fraction] 26.2 % Low 39.0-51.0 [facility] Comment on above: Order Comment: Speci men Type: VENOUS BLOOD SPECIMENOrdering Facility: [facility] Address: [address] [place] [address] Performed By: #### 2 4344-4 ####[facility] LABCLIA [id number] [place] [address] [place] Hemoglobin (Bld) [Mass/Vol] 8.4 g/dL Low 13.0-17.0 [facility] Comment on above: Order Comment: Speci men Type: VENOUS BLOOD SPECIMENOrdering Facility: [facility] Address: [address] [place] [address] Performed By: #### 2 4344-4 ####[facility] LABCLIA [id number] [place] [address] [place] Lactate [Moles/Vol] 1.5 mmol/L Normal 0.5-2.2 [facility] Comment on above: Order Comment: Speci men Type: VENOUS BLOOD SPECIMENOrdering Facility: [facility] Address: [address] [place] [address] Performed By: #### 2 4344-4 ####[facility] LABCLIA [id number] [place] [address] [place] LITERS 2 Liters/min Normal [facility] Comment on above: Order Comment: Speci men Type: VENOUS BLOOD SPECIMENOrdering Facility: [facility] Address: [address] [place] [address] Performed By: #### 2 4344-4 ####[facility] LABCLIA [id number] [place] [address] [place] Methemoglobin (Bld) [Mass fraction] 0.5 % Normal 0.0-1.5 [facility] Comment on above: Order Comment: Speci men Type: VENOUS BLOOD SPECIMENOrdering Facility: [facility] Address: [address] [place] [address] Performed By: #### 2 4344-4 ####[facility] LABCLIA [id number] [place] [address] [place] O2 THERAPY NC = Nasal Cannula Normal [facility] Comment on above: Order Comment: Speci men Type: VENOUS BLOOD SPECIMENOrdering Facility: [facility] Address: [address] [place] [address] Performed By: #### 2 4344-4 ####[facility] LABCLIA [id number] [address] [address] [place] Oxygen (BldV) [Partial pressure] 40 mm[Hg] Normal 35-45 [facility] Comment on above: Order Comment: Speci men Type: VENOUS BLOOD SPECIMENOrdering Facility: [facility] Address: [address] [place], [place] [address] Performed By: #### 2 4344-4 ####[facility] LABCLIA [id number] [place] [id number] [place] Oxygen saturation in Venous blood 68 % Normal 60-85 [facility] Comment on above: Order Comment: Speci men Type: VENOUS BLOOD SPECIMENOrdering Facility: [facility] Address: [address] [place], [place] [address] Performed By: #### 2 4344-4 ####[facility] LABCLIA [id number] [address] [address] [place] Oxyhemoglobin (BldV) [Mass fraction] 66 % Normal 60-85 [facility] Comment on above: Order Comment: Speci men Type: VENOUS BLOOD SPECIMENOrdering Facility: [facility] Address: [address] [place] [address] Performed By: #### 2 4344-4 ####[facility] LABCLIA [id number] [address] [address] [place] pH (BldV) 7.34 [pH] Normal 7.32-7.42 [facility] Comment on above: Order Comment: Speci men Type: VENOUS BLOOD SPECIMENOrdering Facility: [facility] Address: [address] [place] [address] Performed By: #### 2 4344-4 ####[facility] LABCLIA [id number] [place] [id number] [place] Potassium [Moles/Vol] 4.8 mmol/L Normal 3.5-5.0 [facility] Comment on above: Order Comment: Speci men Type: VENOUS BLOOD SPECIMENOrdering Facility: [facility] Address: [address] [place] [address] Performed By: #### 2 4344-4 ####[facility] LABCLIA [id number] [place] [address] [place] Sodium [Moles/Vol] 134 mmol/L Low 136-144 [facility] Comment on above: Order Comment: Speci men Type: VENOUS BLOOD SPECIMENOrdering Facility: [facility] Address: [address] [place] [address] Performed By: #### 2 4344-4 ####[facility] LABCLIA [id number] [place] [address] [place] Base excess Calc (BldV) [Moles/Vol] 2 mmol/L Normal 0-2 [facility] Comment on above: Order Comment: Speci men Type: VENOUS BLOOD SPECIMENOrdering Facility: [facility] Address: [address] [place] [address] Performed By: #### 2 4344-4 ####[facility] LABCLIA [id number] [place] [address] [place] Body temperature 98.6 [degF] Normal [facility] Comment on above: Order Comment: Speci men Type: VENOUS BLOOD SPECIMENOrdering Facility: [facility] Address: [address] [place] [address] Performed By: #### 2 4344-4 ####[facility] LABCLIA [id number] [place] [address] [place] Calcium.ionized (Bld) [Mass/Vol] 1.19 mmol/L Normal 1.08-1.30 [facility] Comment on above: Order Comment: Speci men Type: VENOUS BLOOD SPECIMENOrdering Facility: [facility] Address: [address] [place] [address] Performed By: #### 2 4344-4 ####[facility] LABIA [id number] [place] [address] [place] Calcium.ionized adjusted to pH 7.4 (BldA) [Moles/Vol] 1.17 mmol/L Normal 1.08-1.30 [facility] Comment on above: Order Comment: Speci men Type: VENOUS BLOOD SPECIMENOrdering Facility: [facility] Address: [address] [place] [address] Performed By: #### 2 4344-4 ####[facility] LABIA [id number] [place] [address] [place] Carboxyhemoglobin (BldV) [Mass fraction] 1.9 % Normal 0.0-2.0 [facility] Comment on above: Order Comment: Speci men Type: VENOUS BLOOD SPECIMENOrdering Facility: [facility] Address: [address] [place] [address] Result Comment: Carb oxyhemoglobin Reference Range for Smokers: 2.0-8.0% Performed By: #### 2 4344-4 ####[facility] LABIA [id number] [place] [address] [place] CO2 (BldV) [Partial pressure] 49 mm[Hg] Normal 42-55 [facility] Comment on above: Order Comment: Speci men Type: VENOUS BLOOD SPECIMENOrdering Facility: [facility] Address: [address] [place] [address] Performed By: #### 2 4344-4 ####[facility] LABIA [id number] [place] [address] [place] Glucose [Mass/Vol] 153 mg/dL High 60-105 [facility] Comment on above: Order Comment: Speci men Type: VENOUS BLOOD SPECIMENOrdering Facility: [facility] Address: [address] [place] [address] Performed By: #### 2 4344-4 ####[facility] LABCLIA [id number] [place] [address] [place] HCO3 (Bld) [Moles/Vol] 27 mmol/L Normal 24-28 [facility] Comment on above: Order Comment: Speci men Type: VENOUS BLOOD SPECIMENOrdering Facility: [facility] Address: [address] [place] [address] Performed By: #### 2 4344-4 ####[facility] LABCLIA [id number] [place] [address] [place] Hematocrit (Bld) [Volume fraction] 26.1 % Low 39.0-51.0 [facility] Comment on above: Order Comment: Speci men Type: VENOUS BLOOD SPECIMENOrdering Facility: [facility] Address: [address] [place] [address] Performed By: #### 2 4344-4 ####[facility] LABIA [id number] [place] [address] [place] Hemoglobin (Bld) [Mass/Vol] 8.4 g/dL Low 13.0-17.0 [facility] Comment on above: Order Comment: Speci men Type: VENOUS BLOOD SPECIMENOrdering Facility: [facility] Address: [address] [place] [address] Performed By: #### 2 4344-4 ####[facility] LABCLIA [id number] [place] [address] [place] Lactate [Moles/Vol] 1.2 mmol/L Normal 0.5-2.2 [facility] Comment on above: Order Comment: Speci men Type: VENOUS BLOOD SPECIMENOrdering Facility: [facility] Address: [address] [place] [address] Performed By: #### 2 4344-4 ####[facility] LABCLIA [id number] [address] [id number] [address] [place] LITERS 2 Liters/min Normal [facility] Comment on above: Order Comment: Speci men Type: VENOUS BLOOD SPECIMENOrdering Facility: [facility] Address: [address] [place] [id number] Performed By: #### 2 4344-4 ####[facility] LABCLIA [id number] [place] [address] [place] Methemoglobin (Bld) [Mass fraction] 0.4 % Normal 0.0-1.5 [facility] Comment on above: Order Comment: Speci men Type: VENOUS BLOOD SPECIMENOrdering Facility: [facility] Address: [address] [place] [address] Performed By: #### 2 4344-4 ####[facility] LABCLIA [id number] [place] [address] [place] O2 THERAPY NC = Nasal Cannula Normal [facility] Comment on above: Order Comment: Speci men Type: VENOUS BLOOD SPECIMENOrdering Facility: [facility] Address: [address] [place], [place] [address] Performed By: #### 2 4344-4 ####[facility] LABCLIA [id number] [place] [address] [place] Oxygen (BldV) [Partial pressure] 54 mm[Hg] High 35-45 [facility] Comment on above: Order Comment: Speci men Type: VENOUS BLOOD SPECIMENOrdering Facility: [facility] Address: [address] [place], [place] [address] Performed By: #### 2 4344-4 ####[facility] LABCLIA [id number] [place] [address] [place] Oxygen saturation in Venous blood 86 % High 60-85 [facility] Comment on above: Order Comment: Speci men Type: VENOUS BLOOD SPECIMENOrdering Facility: [facility] Address: [address] [place] [id number] Performed By: #### 2 4344-4 ####[facility] LABCLIA [id number] [place] [id number] [place] Oxyhemoglobin (BldV) [Mass fraction] 84 % Normal 60-85 [facility] Comment on above: Order Comment: Speci men Type: VENOUS BLOOD SPECIMENOrdering Facility: [facility] Address: [address] [place] [address] Performed By: #### 2 4344-4 ####[facility] LABCLIA [id number] [place] [address] [place] pH (BldV) 7.36 [pH] Normal 7.32-7.42 [facility] Comment on above: Order Comment: Speci men Type: VENOUS BLOOD SPECIMENOrdering Facility: [facility] Address: [address] [place] [address] Performed By: #### 2 4344-4 ####[facility] LABIA [id number] [place] [address] [place] Potassium [Moles/Vol] 4.8 mmol/L Normal 3.5-5.0 [facility] Comment on above: Order Comment: Speci men Type: VENOUS BLOOD SPECIMENOrdering Facility: [facility] Address: [address] [place] [address] Performed By: #### 2 4344-4 ####[facility] LABIA [id number] [place] [address] [place] Sodium [Moles/Vol] 135 mmol/L Low 136-144 [facility] Comment on above: Order Comment: Speci men Type: VENOUS BLOOD SPECIMENOrdering Facility: [facility] Address: [address] [place] [address] Performed By: #### 2 4344-4 ####[facility] LABCLIA [id number] [place] [id number] [place] XR CHEST 1V FRONTAL PORTon 0 06-20-2024 XR CHEST 1V FRONTAL PORT Normal [facility] ARTERIAL BLOOD GASESon 06-19 Base excess Calc (Bld) [Moles/Vol] 0 mmol/L Normal 0-2 [facility] Comment on above: Order Comment: Speci men Type: ARTERIAL BLOOD SPECIMENOrdering Facility: [facility] Address: [address] [place] [address] Performed By: #### A LLBG ####[facility] LABCLIA [id number] [place] [address] [place] Body temperature 98.6 [degF] Normal [facility] Comment on above: Order Comment: Speci men Type: ARTERIAL BLOOD SPECIMENOrdering Facility: [facility] Address: [address] [place] [address] Performed By: #### A LLBG ####[facility] LABCLIA [id number] [place] [address] [place] Order Comment: Speci men Type: VENOUS BLOOD SPECIMENOrdering Facility: [facility] Address: [address] [place] [address] Performed By: #### 2 4344-4 ####[facility] LABCLIA [id number] [place] [address] [place] Calcium.ionized (Bld) [Mass/Vol] 1.22 mmol/L Normal 1.08-1.30 [facility] Comment on above: Order Comment: Speci men Type: ARTERIAL BLOOD SPECIMENOrdering Facility: [facility] Address: [address] [place] [address] Performed By: #### A LLBG ####[facility] LABCLIA [id number] [place] [address] [place] Calcium.ionized adjusted to pH 7.4 (BldA) [Moles/Vol] 1.22 mmol/L Normal 1.08-1.30 [facility] Comment on above: Order Comment: Speci men Type: ARTERIAL BLOOD SPECIMENOrdering Facility: [facility] Address: [address] [place] [address] Performed By: #### A LLBG ####[facility] LABCLIA [id number] [place] [address] [place] Carboxyhemoglobin (BldA) [Mass fraction] 1.8 % Normal 0.0-2.0 [facility] Comment on above: Order Comment: Speci men Type: ARTERIAL BLOOD SPECIMENOrdering Facility: [facility] Address: [address] [place] [address] Result Comment: Carb oxyhemoglobin Reference Range for Smokers: 2.0-8.0% Performed By: #### A LLBG ####[facility] LABCLIA [id number] [place] [address] [place] CO2 (Bld) [Partial pressure] 40 mm Hg Normal 36-46 [facility] Comment on above: Order Comment: Speci men Type: ARTERIAL BLOOD SPECIMENOrdering Facility: [facility] Address: [address] [place] [address] Performed By: #### A LLBG ####[facility] LABCLIA [id number] [place] [address] [place] Glucose [Mass/Vol] 114 mg/dL High 60-105 [facility] Comment on above: Order Comment: Speci men Type: ARTERIAL BLOOD SPECIMENOrdering Facility: [facility] Address: [address] [place] [address] Performed By: #### A LLBG ####[facility] LABCLIA [id number] [place] [address] [place] Order Comment: Speci men Type: VENOUS BLOOD SPECIMENOrdering Facility: [facility] Address: [address] [place] [address] Performed By: #### 2 4344-4 ####[facility] LABCLIA [id number] [place] [address] [place] HCO3 (Bld) [Moles/Vol] 24 mmol/L Normal 22-26 [facility] Comment on above: Order Comment: Speci men Type: ARTERIAL BLOOD SPECIMENOrdering Facility: [facility] Address: [address] [place] [address] Performed By: #### A LLBG ####[facility] LABCLIA [id number] [place] [address] [place] Hematocrit (Bld) [Volume fraction] 27.9 % Low 39.0-51.0 [facility] Comment on above: Order Comment: Speci men Type: ARTERIAL BLOOD SPECIMENOrdering Facility: [facility] Address: [address] [place] [address] Performed By: #### A LLBG ####[facility] LABCLIA [id number] [place] [address] [place] Hemoglobin (Bld) [Mass/Vol] 9.0 g/dL Low 13.0-17.0 [facility] Comment on above: Order Comment: Speci men Type: ARTERIAL BLOOD SPECIMENOrdering Facility: [facility] Address: [address] [place] [address] Performed By: #### A LLBG ####[facility] LABCLIA [id number] [place] [address] [place] Lactate [Moles/Vol] 2.3 mmol/L High 0.5-2.2 [facility] Comment on above: Order Comment: Speci men Type: ARTERIAL BLOOD SPECIMENOrdering Facility: [facility] Address: [address] [place] [address] Performed By: #### A LLBG ####[facility] LABCLIA [id number] [place] [address] [place] LITERS 2 Liters/min Normal [facility] Comment on above: Order Comment: Speci men Type: ARTERIAL BLOOD SPECIMENOrdering Facility: [facility] Address: [address] [place] [address] Performed By: #### A LLBG ####[facility] LABCLIA [id number] [address] [address] [place] Methemoglobin (Bld) [Mass fraction] 0.8 % Normal 0.0-1.5 [facility] Comment on above: Order Comment: Speci men Type: ARTERIAL BLOOD SPECIMENOrdering Facility: [facility] Address: [address] [place] [id number] Performed By: #### A LLBG ####[facility] LABCLIA [id number] [place] [id number] [place] O2 THERAPY NC = Nasal Cannula Normal [facility] Comment on above: Order Comment: Speci men Type: ARTERIAL BLOOD SPECIMENOrdering Facility: [facility] Address: [address] [place], [place] [address] Performed By: #### A LLBG ####[facility] LABCLIA [id number] [place] [address] [place] Order Comment: Speci men Type: VENOUS BLOOD SPECIMENOrdering Facility: [facility] Address: [address] [place] [id number] Performed By: #### 2 4344-4 ####[facility] LABCLIA [id number] [place] [id number] [place] Oxygen (Bld) [Partial pressure] 101 mm Hg High 85-95 [facility] Comment on above: Order Comment: Speci men Type: ARTERIAL BLOOD SPECIMENOrdering Facility: [facility] Address: [address] [place] [id number] Performed By: #### A LLBG ####[facility] LABCLIA [id number] [place] [id number] [place] Oxyhemoglobin (BldA) [Mass fraction] 96 % Normal 95-98 [facility] Comment on above: Order Comment: Speci men Type: ARTERIAL BLOOD SPECIMENOrdering Facility: [facility] Address: [address] [place] [id number] Performed By: #### A LLBG ####[facility] LABCLIA [id number] [place] [address] [place] pH (Bld) 7.39 [pH] Normal 7.35-7.45 [facility] Comment on above: Order Comment: Speci men Type: ARTERIAL BLOOD SPECIMENOrdering Facility: [facility] Address: [address] [place] [address] Performed By: #### A LLBG ####[facility] LABCLIA [id number] [place] [address] [place] Potassium [Moles/Vol] 5.1 mmol/L High 3.5-5.0 [facility] Comment on above: Order Comment: Speci men Type: ARTERIAL BLOOD SPECIMENOrdering Facility: [facility] Address: [address] [place] [address] Performed By: #### A LLBG ####[facility] LABCLIA [id number] [place] [address] [place] Sodium [Moles/Vol] 137 mmol/L Normal 136-144 [facility] Comment on above: Order Comment: Speci men Type: ARTERIAL BLOOD SPECIMENOrdering Facility: [facility] Address: [address] [place] [address] Performed By: #### A LLBG ####[facility] LABCLIA [id number] [place] [address] [place] Order Comment: Speci men Type: VENOUS BLOOD SPECIMENOrdering Facility: [facility] Address: [address] [place] [address] Performed By: #### 2 4344-4 ####[facility] LABCLIA [id number] [place] [address] [place] Base excess Calc (Bld) [Moles/Vol] 0 mmol/L Normal 0-2 [facility] Comment on above: Order Comment: Speci men Type: ARTERIAL BLOOD SPECIMENOrdering Facility: [facility] Address: [address] [place] [address] Performed By: #### A LLBG ####[facility] [id number] [place] [address] [place] Calcium.ionized (Bld) [Mass/Vol] 1.20 mmol/L Normal 1.08-1.30 [facility] Comment on above: Order Comment: Speci men Type: ARTERIAL BLOOD SPECIMENOrdering Facility: [facility] Address: [address] [place] [address] Performed By: #### A LLBG ####[facility] LABIA [id number] [place] [address] [place] Calcium.ionized adjusted to pH 7.4 (BldA) [Moles/Vol] 1.19 mmol/L Normal 1.08-1.30 [facility] Comment on above: Order Comment: Speci men Type: ARTERIAL BLOOD SPECIMENOrdering Facility: [facility] Address: [address] [place] [address] Performed By: #### A LLBG ####[facility] LABIA [id number] [place] [address] [place] Carboxyhemoglobin (BldA) [Mass fraction] 1.8 % Normal 0.0-2.0 [facility] Comment on above: Order Comment: Speci men Type: ARTERIAL BLOOD SPECIMENOrdering Facility: [facility] Address: [address] [place] [address] Result Comment: Carb oxyhemoglobin Reference Range for Smokers: 2.0-8.0% Performed By: #### A LLBG ####[facility] LABIA [id number] [place] [address] [place] CO2 (Bld) [Partial pressure] 43 mm Hg Normal 36-46 [facility] Comment on above: Order Comment: Speci men Type: ARTERIAL BLOOD SPECIMENOrdering Facility: [facility] Address: [address] [place] [address] Performed By: #### A LLBG ####[facility] LABCLIA [id number] [place] [address] [place] Glucose [Mass/Vol] 125 mg/dL High 60-105 [facility] Comment on above: Order Comment: Speci men Type: ARTERIAL BLOOD SPECIMENOrdering Facility: [facility] Address: [address] [place] [address] Performed By: #### A LLBG ####[facility] LABCLIA [id number] [place] [address] [place] HCO3 (Bld) [Moles/Vol] 24 mmol/L Normal 22-26 [facility] Comment on above: Order Comment: Speci men Type: ARTERIAL BLOOD SPECIMENOrdering Facility: [facility] Address: [address] [place] [address] Performed By: #### A LLBG ####[facility] LABIA [id number] [place] [address] [place] Lactate [Moles/Vol] 2.2 mmol/L Normal 0.5-2.2 [facility] Comment on above: Order Comment: Speci men Type: ARTERIAL BLOOD SPECIMENOrdering Facility: [facility] Address: [address] [place] [address] Performed By: #### A LLBG ####[facility] LABIA [id number] [place] [address] [place] Methemoglobin (Bld) [Mass fraction] 0.6 % Normal 0.0-1.5 [facility] Comment on above: Order Comment: Speci men Type: ARTERIAL BLOOD SPECIMENOrdering Facility: [facility] Address: [address] [place] [address] Performed By: #### A LLBG ####[facility] LABIA [id number] [address] [id number] [address] [place] Oxygen (Bld) [Partial pressure] 129 mm Hg High 85-95 [facility] Comment on above: Order Comment: Speci men Type: ARTERIAL BLOOD SPECIMENOrdering Facility: [facility] Address: [address] [place] [address] Performed By: #### A LLBG ####[facility] LABCLIA [id number] [place] [address] [place] Oxyhemoglobin (BldA) [Mass fraction] 97 % Normal 95-98 [facility] Comment on above: Order Comment: Speci men Type: ARTERIAL BLOOD SPECIMENOrdering Facility: [facility] Address: [address] [place] [address] Performed By: #### A LLBG ####[facility] LABIA [id number] [place] [address] [place] pH (Bld) 7.38 [pH] Normal 7.35-7.45 [facility] Comment on above: Order Comment: Speci men Type: ARTERIAL BLOOD SPECIMENOrdering Facility: [facility] Address: [address] [place] [address] Performed By: #### A LLBG ####[facility] LABCLIA [id number] [place] [address] [place] Potassium [Moles/Vol] 4.9 mmol/L Normal 3.5-5.0 [facility] Comment on above: Order Comment: Speci men Type: ARTERIAL BLOOD SPECIMENOrdering Facility: [facility] [facility] Address: [address] [place] [address] Performed By: #### A LLBG ####[facility] LABIA [id number] [place] [address] [place] Sodium [Moles/Vol] 136 mmol/L Normal 136-144 [facility] Comment on above: Order Comment: Speci men Type: ARTERIAL BLOOD SPECIMENOrdering Facility: [facility] Address: [address] [place] [address] Performed By: #### A LLBG ####[facility] [id number] [place] [address] [place] Base deficit (BldA) [Moles/Vol] -1 mmol/L Normal -2-0 [facility] Comment on above: Order Comment: Speci men Type: ARTERIAL BLOOD SPECIMENOrdering Facility: [facility] Address: [address] [place] [address] Performed By: #### A LLBG ####[facility] [id number] [place] [address] [place] Calcium.ionized (Bld) [Mass/Vol] 1.24 mmol/L Normal 1.08-1.30 [facility] Comment on above: Order Comment: Speci men Type: ARTERIAL BLOOD SPECIMENOrdering Facility: [facility] Address: [address] [place] [address] Performed By: #### A LLBG ####[facility] [id number] [place] [address] [place] Calcium.ionized adjusted to pH 7.4 (BldA) [Moles/Vol] 1.21 mmol/L Normal 1.08-1.30 [facility] Comment on above: Order Comment: Speci men Type: ARTERIAL BLOOD SPECIMENOrdering Facility: [facility] Address: [address] [place] [address] Performed By: #### A LLBG ####[facility] [id number] [place] [address] [place] Carboxyhemoglobin (BldA) [Mass fraction] 1.7 % Normal 0.0-2.0 [facility] Comment on above: Order Comment: Speci men Type: ARTERIAL BLOOD SPECIMENOrdering Facility: [facility] Address: [address] [place] [address] Result Comment: Carb oxyhemoglobin Reference Range for Smokers: 2.0-8.0% Performed By: #### A LLBG ####[facility] LABCLIA [id number] [place] [address] [place] CO2 (Bld) [Partial pressure] 44 mm Hg Normal 36-46 [facility] Comment on above: Order Comment: Speci men Type: ARTERIAL BLOOD SPECIMENOrdering Facility: [facility] Address: [address] [place] [address] Performed By: #### A LLBG ####[facility] LABCLIA [id number] [place] [address] [place] Glucose [Mass/Vol] 128 mg/dL High 60-105 [facility] Comment on above: Order Comment: Speci men Type: ARTERIAL BLOOD SPECIMENOrdering Facility: [facility] Address: [address] [place] [address] Performed By: #### A LLBG ####[facility] LABCLIA [id number] [place] [address] [place] HCO3 (Bld) [Moles/Vol] 24 mmol/L Normal 22-26 [facility] Comment on above: Order Comment: Speci men Type: ARTERIAL BLOOD SPECIMENOrdering Facility: [facility] Address: [address] [place] [address] Performed By: #### A LLBG ####[facility] LABCLIA [id number] [place] [address] [place] Hematocrit (Bld) [Volume fraction] 26.6 % Low 39.0-51.0 [facility] Comment on above: Order Comment: Speci men Type: ARTERIAL BLOOD SPECIMENOrdering Facility: [facility] Address: [address] [place] [address] Performed By: #### A LLBG ####[facility] LABCLIA [id number] [place] [address] [place] Hemoglobin (Bld) [Mass/Vol] 8.6 g/dL Low 13.0-17.0 [facility] Comment on above: Order Comment: Speci men Type: ARTERIAL BLOOD SPECIMENOrdering Facility: [facility] Address: [address] [id number] Performed By: #### A LLBG ####[facility] LABCLIA [id number] [place] [id number] [place] Lactate [Moles/Vol] 2.7 mmol/L High 0.5-2.2 [facility] Comment on above: Order Comment: Speci men Type: ARTERIAL BLOOD SPECIMENOrdering Facility: [facility] Address: [address] [place] [address] Performed By: #### A LLBG ####[facility] LABCLIA [id number] [place] [address] [place] Methemoglobin (Bld) [Mass fraction] 0.8 % Normal 0.0-1.5 [facility] Comment on above: Order Comment: Speci men Type: ARTERIAL BLOOD SPECIMENOrdering Facility: [facility] Address: [address] [place], [place] [address] Performed By: #### A LLBG ####[facility] LABCLIA [id number] [place] [address] [place] Oxygen (Bld) [Partial pressure] 150 mm Hg High 85-95 [facility] Comment on above: Order Comment: Speci men Type: ARTERIAL BLOOD SPECIMENOrdering Facility: [facility] Address: [address] [place] [address] Performed By: #### A LLBG ####[facility] LABCLIA [id number] [place] [id number] [place] Oxyhemoglobin (BldA) [Mass fraction] 97 % Normal 95-98 [facility] Comment on above: Order Comment: Speci men Type: ARTERIAL BLOOD SPECIMENOrdering Facility: [facility] Address: [address] [place], [place] [address] Performed By: #### A LLBG ####[facility] LABCLIA [id number] [place] [address] [place] pH (Bld) 7.36 [pH] Normal 7.35-7.45 [facility] Comment on above: Order Comment: Speci men Type: ARTERIAL BLOOD SPECIMENOrdering Facility: [facility] Address: [address] [place] [address] Performed By: #### A LLBG ####[facility] LABCLIA [id number] [place] [address] [place] Sodium [Moles/Vol] 138 mmol/L Normal 136-144 [facility] Comment on above: Order Comment: Speci men Type: ARTERIAL BLOOD SPECIMENOrdering Facility: [facility] Address: [address] [place] [address] Performed By: #### A LLBG ####[facility] LABIA [id number] [place] [address] [place] Base deficit (BldA) [Moles/Vol] -2 mmol/L Normal -2-0 [facility] Comment on above: Order Comment: Speci men Type: ARTERIAL BLOOD SPECIMENOrdering Facility: [facility] Address: [address] [place] [address] Performed By: #### A LLBG ####[facility] LABIA [id number] [place] [address] [place] Body temperature 98.6 [degF] Normal [facility] Comment on above: Order Comment: Speci men Type: ARTERIAL BLOOD SPECIMENOrdering Facility: [facility] Address: [address] [place] [address] Performed By: #### A LLBG ####[facility] LABIA [id number] [place] [address] [place] Order Comment: Speci men Type: VENOUS BLOOD SPECIMENOrdering Facility: [facility] Address: [address] [place] [address] Performed By: #### 2 4344-4 ####[facility] LABIA [id number] [place] [address] [place] Calcium.ionized (Bld) [Mass/Vol] 1.20 mmol/L Normal 1.08-1.30 [facility] Comment on above: Order Comment: Speci men Type: ARTERIAL BLOOD SPECIMENOrdering Facility: [facility] Address: [address] [place] [address] Performed By: #### A LLBG ####[facility] [id number] [place] [address] [place] Calcium.ionized adjusted to pH 7.4 (BldA) [Moles/Vol] 1.17 mmol/L Normal 1.08-1.30 [facility] Comment on above: Order Comment: Speci men Type: ARTERIAL BLOOD SPECIMENOrdering Facility: [facility] Address: [address] [place] [address] Performed By: #### A LLBG ####[facility] [id number] [place] [address] [place] Carboxyhemoglobin (BldA) [Mass fraction] 1.2 % Normal 0.0-2.0 [facility] Comment on above: Order Comment: Speci men Type: ARTERIAL BLOOD SPECIMENOrdering Facility: [facility] Address: [address] [place] [address] Result Comment: Carb oxyhemoglobin Reference Range for Smokers: 2.0-8.0% Performed By: #### A LLBG ####[facility] [id number] [place] [address] [place] CO2 (Bld) [Partial pressure] 42 mm Hg Normal 36-46 [facility] Comment on above: Order Comment: Speci men Type: ARTERIAL BLOOD SPECIMENOrdering Facility: [facility] Address: [address] [place] [address] Performed By: #### A LLBG ####[facility] LABCLIA [id number] [place] [address] [place] Glucose [Mass/Vol] 177 mg/dL High 60-105 [facility] Comment on above: Order Comment: Speci men Type: ARTERIAL BLOOD SPECIMENOrdering Facility: [facility] Address: [address] [place] [address] Performed By: #### A LLBG ####[facility] LABCLIA [id number] [place] [address] [place] HCO3 (Bld) [Moles/Vol] 23 mmol/L Normal 22-26 [facility] Comment on above: Order Comment: Speci men Type: ARTERIAL BLOOD SPECIMENOrdering Facility: [facility] Address: [address] [place] [address] Performed By: #### A LLBG ####[facility] LABCLIA [id number] [place] [address] [place] Hematocrit (Bld) [Volume fraction] 27.2 % Low 39.0-51.0 [facility] Comment on above: Order Comment: Speci men Type: ARTERIAL BLOOD SPECIMENOrdering Facility: [facility] Address: [address] [place] [address] Performed By: #### A LLBG ####[facility] LABCLIA [id number] [place] [address] [place] Hemoglobin (Bld) [Mass/Vol] 8.8 g/dL Low 13.0-17.0 [facility] Comment on above: Order Comment: Speci men Type: ARTERIAL BLOOD SPECIMENOrdering Facility: [facility] Address: [address] [place] [address] Performed By: #### A LLBG ####[facility] LABCLIA [id number] [place] [address] [place] Lactate [Moles/Vol] 4.0 mmol/L High 0.5-2.2 [facility] Comment on above: Order Comment: Speci men Type: ARTERIAL BLOOD SPECIMENOrdering Facility: [facility] Address: [address] [id number] Performed By: #### A LLBG ####[facility] LABCLIA [id number] [address] [address] [place] LITERS 2 Liters/min Normal [facility] Comment on above: Order Comment: Speci men Type: ARTERIAL BLOOD SPECIMENOrdering Facility: [facility] Address: [address] [place], [place] [address] Performed By: #### A LLBG ####[facility] LABCLIA [id number] [place] [address] [place] Order Comment: Speci men Type: VENOUS BLOOD SPECIMENOrdering Facility: [facility] Address: [address] [place] [address] Performed By: #### 2 4344-4 ####[facility] LABCLIA [id number] [place] [address] [place] Methemoglobin (Bld) [Mass fraction] 0.4 % Normal 0.0-1.5 [facility] Comment on above: Order Comment: Speci men Type: ARTERIAL BLOOD SPECIMENOrdering Facility: [facility] Address: [address] [place], [place] [address] Performed By: #### A LLBG ####[facility] LABCLIA [id number] [place] [address] [place] O2 THERAPY NC = Nasal Cannula Normal [facility] Comment on above: Order Comment: Speci men Type: ARTERIAL BLOOD SPECIMENOrdering Facility: [facility] Address: [address] [place], [place] [address] Performed By: #### A LLBG ####[facility] LABCLIA [id number] [place] [id number] [place] Order Comment: Speci men Type: VENOUS BLOOD SPECIMENOrdering Facility: [facility] Address: [address] [place] [address] Performed By: #### 2 4344-4 ####[facility] LABCLIA [id number] [place] [address] [place] Oxygen (Bld) [Partial pressure] 143 mm Hg High 85-95 [facility] Comment on above: Order Comment: Speci men Type: ARTERIAL BLOOD SPECIMENOrdering Facility: [facility] Address: [address] [place] [address] Performed By: #### A LLBG ####[facility] LABIA [id number] [place] [address] [place] Oxyhemoglobin (BldA) [Mass fraction] 98 % Normal 95-98 [facility] Comment on above: Order Comment: Speci men Type: ARTERIAL BLOOD SPECIMENOrdering Facility: [facility] Address: [address] [place] [address] Performed By: #### A LLBG ####[facility] LABIA [id number] [place] [address] [place] pH (Bld) 7.35 [pH] Normal 7.35-7.45 [facility] Comment on above: Order Comment: Speci men Type: ARTERIAL BLOOD SPECIMENOrdering Facility: [facility] Address: [address] [place] [address] Performed By: #### A LLBG ####[facility] LABIA [id number] [place] [address] [place] Potassium [Moles/Vol] 4.8 mmol/L Normal 3.5-5.0 [facility] Comment on above: Order Comment: Speci men Type: ARTERIAL BLOOD SPECIMENOrdering Facility: [facility] Address: [address] [place] [address] Performed By: #### A LLBG ####[facility] LABIA [id number] [place] [address] [place] Sodium [Moles/Vol] 138 mmol/L Normal 136-144 [facility] Comment on above: Order Comment: Speci men Type: ARTERIAL BLOOD SPECIMENOrdering Facility: [facility] Address: [address] [place] [address] Performed By: #### A LLBG ####[facility] LABCLIA [id number] [place] [address] [place] Order Comment: Speci men Type: VENOUS BLOOD SPECIMENOrdering Facility: [facility] Address: [address] [place] [address] Performed By: #### 2 4344-4 ####[facility] LABCLIA [id number] [place] [address] [place] Base deficit (BldA) [Moles/Vol] -2 mmol/L Normal -2-0 [facility] Comment on above: Order Comment: Speci men Type: ARTERIAL BLOOD SPECIMENOrdering Facility: [facility] Address: [address] [place] [address] Performed By: #### A LLBG ####[facility] LABCLIA [id number] [place] [address] [place] Body temperature 98.6 [degF] Normal [facility] Comment on above: Order Comment: Speci men Type: ARTERIAL BLOOD SPECIMENOrdering Facility: [facility] Address: [address] [place] [address] Performed By: #### A LLBG ####[facility] LABCLIA [id number] [place] [address] [place] Order Comment: Speci men Type: VENOUS BLOOD SPECIMENOrdering Facility: [facility] Address: [address] [place] [address] Performed By: #### 2 4344-4 ####[facility] LABCLIA [id number] [place] [address] [place] Calcium.ionized (Bld) [Mass/Vol] 1.20 mmol/L Normal 1.08-1.30 [facility] Comment on above: Order Comment: Speci men Type: ARTERIAL BLOOD SPECIMENOrdering Facility: [facility] Address: [address] [place] [address] Performed By: #### A LLBG ####[facility] LABCLIA [id number] [place] [address] [place] Calcium.ionized adjusted to pH 7.4 (BldA) [Moles/Vol] 1.17 mmol/L Normal 1.08-1.30 [facility] Comment on above: Order Comment: Speci men Type: ARTERIAL BLOOD SPECIMENOrdering Facility: [facility] Address: [address] [place] [address] Performed By: #### A LLBG ####[facility] LABIA [id number] [place] [address] [place] Carboxyhemoglobin (BldA) [Mass fraction] 1.1 % Normal 0.0-2.0 [facility] Comment on above: Order Comment: Speci men Type: ARTERIAL BLOOD SPECIMENOrdering Facility: [facility] Address: [address] [place] [address] Result Comment: Carb oxyhemoglobin Reference Range for Smokers: 2.0-8.0% Performed By: #### A LLBG ####[facility] LABCLIA [id number] [place] [address] [place] CO2 (Bld) [Partial pressure] 43 mm Hg Normal 36-46 [facility] Comment on above: Order Comment: Speci men Type: ARTERIAL BLOOD SPECIMENOrdering Facility: [facility] Address: [address] [place] [address] Performed By: #### A LLBG ####[facility] LABCLIA [id number] [place] [address] [place] FIO2 30 % Normal [facility] Comment on above: Order Comment: Speci men Type: ARTERIAL BLOOD SPECIMENOrdering Facility: [facility] Address: [address] [place] [address] Performed By: #### A LLBG ####[facility] LABCLIA [id number] [place] [address] [place] Order Comment: Speci men Type: VENOUS BLOOD SPECIMENOrdering Facility: [facility] Address: [address] [place] [address] Performed By: #### 2 4344-4 ####[facility] LABCLIA [id number] [place] [address] [place] Glucose [Mass/Vol] 173 mg/dL High 60-105 [facility] Comment on above: Order Comment: Speci men Type: ARTERIAL BLOOD SPECIMENOrdering Facility: [facility] Address: [address] [place] [address] Performed By: #### A LLBG ####[facility] LABCLIA [id number] [place] [address] [place] HCO3 (Bld) [Moles/Vol] 23 mmol/L Normal 22-26 [facility] Comment on above: Order Comment: Speci men Type: ARTERIAL BLOOD SPECIMENOrdering Facility: [facility] Address: [address] [place] [address] Performed By: #### A LLBG ####[facility] LABCLIA [id number] [place] [address] [place] Hematocrit (Bld) [Volume fraction] 27.5 % Low 39.0-51.0 [facility] Comment on above: Order Comment: Speci men Type: ARTERIAL BLOOD SPECIMENOrdering Facility: [facility] Address: [address] [place] [address] Performed By: #### A LLBG ####[facility] LABCLIA [id number] [place] [address] [place] Hemoglobin (Bld) [Mass/Vol] 8.9 g/dL Low 13.0-17.0 [facility] Comment on above: Order Comment: Speci men Type: ARTERIAL BLOOD SPECIMENOrdering Facility: [facility] Address: [address] [place] [address] Performed By: #### A LLBG ####[facility] LABCLIA [id number] [address] [address] [place] Lactate [Moles/Vol] 4.9 mmol/L High 0.5-2.2 [facility] Comment on above: Order Comment: Speci men Type: ARTERIAL BLOOD SPECIMENOrdering Facility: [facility] Address: [address] [place] [address] Performed By: #### A LLBG ####[facility] LABCLIA [id number] [place] [address] [place] Methemoglobin (Bld) [Mass fraction] 1.0 % Normal 0.0-1.5 [facility] Comment on above: Order Comment: Speci men Type: ARTERIAL BLOOD SPECIMENOrdering Facility: [facility] Address: [address] [place] [address] Performed By: #### A LLBG ####[facility] LABCLIA [id number] [place] [address] [place] O2 THERAPY Positive Normal [facility] Comment on above: Order Comment: Speci men Type: ARTERIAL BLOOD SPECIMENOrdering Facility: [facility] Address: [address] [place], [place] [id number] Performed By: #### A LLBG ####[facility] LABCLIA [id number] [place] [id number] [place] Order Comment: Speci men Type: VENOUS BLOOD SPECIMENOrdering Facility: [facility] Address: [address] [place], [place] [address] Performed By: #### 2 4344-4 ####[facility] LABCLIA [id number] [address] [id number] [address] [place] Oxygen (Bld) [Partial pressure] 129 mm Hg High 85-95 [facility] Comment on above: Order Comment: Speci men Type: ARTERIAL BLOOD SPECIMENOrdering Facility: [facility] Address: [address] [place] [address] Performed By: #### A LLBG ####[facility] LABCLIA [id number] [place] [address] [place] Oxyhemoglobin (BldA) [Mass fraction] 97 % Normal 95-98 [facility] Comment on above: Order Comment: Speci men Type: ARTERIAL BLOOD SPECIMENOrdering Facility: [facility] Address: [address] [place] [address] Performed By: #### A LLBG ####[facility] LABCLIA [id number] [place] [address] [place] pH (Bld) 7.35 [pH] Normal 7.35-7.45 [facility] Comment on above: Order Comment: Speci men Type: ARTERIAL BLOOD SPECIMENOrdering Facility: [facility] Address: [address] [place] [address] Performed By: #### A LLBG ####[facility] LABCLIA [id number] [place] [address] [place] PO2 / FIO2 RATIO 430 mmHg Normal >300 [facility] Comment on above: Order Comment: Speci men Type: ARTERIAL BLOOD SPECIMENOrdering Facility: [facility] Address: [address] [place] [address] Performed By: #### A LLBG ####[facility] LABCLIA [id number] [place] [address] [place] Potassium [Moles/Vol] 4.8 mmol/L Normal 3.5-5.0 [facility] Comment on above: Order Comment: Speci men Type: ARTERIAL BLOOD SPECIMENOrdering Facility: [facility] Address: [address] [place] [address] Performed By: #### A LLBG ####[facility] LABCLIA [id number] [place] [address] [place] Order Comment: Speci men Type: VENOUS BLOOD SPECIMENOrdering Facility: [facility] Address: [address] [place] [address] Performed By: #### 2 [id number] ####[facility] LABCLIA [id number] [place] [address] [place] Sodium [Moles/Vol] 140 mmol/L Normal 136-144 [facility] Comment on above: Order Comment: Speci men Type: ARTERIAL BLOOD SPECIMENOrdering Facility: [facility] Address: [address] [place] [address] Performed By: #### A LLBG ####[facility] LABIA [id number] [place] [address] [place] Base deficit (BldA) [Moles/Vol] -3 mmol/L Low -2-0 [facility] Comment on above: Order Comment: Speci men Type: ARTERIAL BLOOD SPECIMENOrdering Facility: [facility] Address: [address] [place] [address] Performed By: #### A LLBG ####[facility] LABIA [id number] [place] [address] [place] Calcium.ionized (Bld) [Mass/Vol] 1.21 mmol/L Normal 1.08-1.30 [facility] Comment on above: Order Comment: Speci men Type: ARTERIAL BLOOD SPECIMENOrdering Facility: [facility] Address: [address] [place] [address] Performed By: #### A LLBG ####[facility] LABIA [id number] [place] [address] [place] Calcium.ionized adjusted to pH 7.4 (BldA) [Moles/Vol] 1.20 mmol/L Normal 1.08-1.30 [facility] Comment on above: Order Comment: Speci men Type: ARTERIAL BLOOD SPECIMENOrdering Facility: [facility] Address: [address] [place] [address] Performed By: #### A LLBG ####[facility] LABCLIA [id number] [place] [address] [place] Carboxyhemoglobin (BldA) [Mass fraction] 1.8 % Normal 0.0-2.0 [facility] Comment on above: Order Comment: Speci men Type: ARTERIAL BLOOD SPECIMENOrdering Facility: [facility] Address: [address] [place] [address] Result Comment: Carb oxyhemoglobin Reference Range for Smokers: 2.0-8.0% Performed By: #### A LLBG ####[facility] LABCLIA [id number] [place] [address] [place] CO2 (Bld) [Partial pressure] 36 mm Hg Normal 36-46 [facility] Comment on above: Order Comment: Speci men Type: ARTERIAL BLOOD SPECIMENOrdering Facility: [facility] Address: [address] [place] [address] Performed By: #### A LLBG ####[facility] LABCLIA [id number] [place] [address] [place] Glucose [Mass/Vol] 163 mg/dL High 60-105 [facility] Comment on above: Order Comment: Speci men Type: ARTERIAL BLOOD SPECIMENOrdering Facility: [facility] Address: [address] [place] [address] Performed By: #### A LLBG ####[facility] LABCLIA [id number] [place] [address] [place] HCO3 (Bld) [Moles/Vol] 21 mmol/L Low 22-26 [facility] Comment on above: Order Comment: Speci men Type: ARTERIAL BLOOD SPECIMENOrdering Facility: [facility] Address: [address] [place] [address] Performed By: #### A LLBG ####[facility] LABCLIA [id number] [place] [address] [place] Hematocrit (Bld) [Volume fraction] 30.4 % Low 39.0-51.0 [facility] Comment on above: Order Comment: Speci men Type: ARTERIAL BLOOD SPECIMENOrdering Facility: [facility] Address: [address] [place] [address] Performed By: #### A LLBG ####[facility] LABIA [id number] [place] [address] [place] Lactate [Moles/Vol] 4.8 mmol/L High 0.5-2.2 [facility] Comment on above: Order Comment: Speci men Type: ARTERIAL BLOOD SPECIMENOrdering Facility: [facility] Address: [address] [place] [address] Performed By: #### A LLBG ####[facility] LABIA [id number] [place] [address] [place] Methemoglobin (Bld) [Mass fraction] 0.9 % Normal 0.0-1.5 [facility] Comment on above: Order Comment: Speci men Type: ARTERIAL BLOOD SPECIMENOrdering Facility: [facility] Address: [address] [place] [address] Performed By: #### A LLBG ####[facility] LABIA [id number] [place] [address] [place] Oxygen (Bld) [Partial pressure] 173 mm Hg High 85-95 [facility] Comment on above: Order Comment: Speci men Type: ARTERIAL BLOOD SPECIMENOrdering Facility: [facility] Address: [address] [place] [address] Performed By: #### A LLBG ####[facility] LABIA [id number] [place] [address] [place] Oxyhemoglobin (BldA) [Mass fraction] 97 % Normal 95-98 [facility] Comment on above: Order Comment: Speci men Type: ARTERIAL BLOOD SPECIMENOrdering Facility: [facility] Address: [address] [place] [address] Performed By: #### A LLBG ####[facility] LABCLIA [id number] [place] [address] [place] pH (Bld) 7.39 [pH] Normal 7.35-7.45 [facility] Comment on above: Order Comment: Speci men Type: ARTERIAL BLOOD SPECIMENOrdering Facility: [facility] Address: [address] [place] [address] Performed By: #### A LLBG ####[facility] LABCLIA [id number] [place] [address] [place] Potassium [Moles/Vol] 4.8 mmol/L Normal 3.5-5.0 [facility] Comment on above: Order Comment: Speci men Type: ARTERIAL BLOOD SPECIMENOrdering Facility: [facility] Address: [address] [place] [address] Performed By: #### A LLBG ####[facility] LABCLIA [id number] [place] [address] [place] Sodium [Moles/Vol] 138 mmol/L Normal 136-144 [facility] Comment on above: Order Comment: Speci men Type: ARTERIAL BLOOD SPECIMENOrdering Facility: [facility] Address: [address] [place] [address] Performed By: #### A LLBG ####[facility] LABCLIA [id number] [place] [address] [place] Base deficit (BldA) [Moles/Vol] -2 mmol/L Normal -2-0 [facility] Comment on above: Order Comment: Speci men Type: ARTERIAL BLOOD SPECIMENOrdering Facility: [facility] Address: [address] [place] [address] Performed By: #### A LLBG ####[facility] LABCLIA [id number] [place] [address] [place] Body temperature 98.6 [degF] Normal [facility] Comment on above: Order Comment: Speci men Type: ARTERIAL BLOOD SPECIMENOrdering Facility: [facility] Address: [address] [place] [address] Performed By: #### A LLBG ####[facility] LABCLIA [id number] [place] [address] [place] Calcium.ionized (Bld) [Mass/Vol] 1.22 mmol/L Normal 1.08-1.30 [facility] Comment on above: Order Comment: Speci men Type: ARTERIAL BLOOD SPECIMENOrdering Facility: [facility] Address: [address] [place] [address] Performed By: #### A LLBG ####[facility] LABCLIA [id number] [place] [address] [place] Calcium.ionized adjusted to pH 7.4 (BldA) [Moles/Vol] 1.21 mmol/L Normal 1.08-1.30 [facility] Comment on above: Order Comment: Speci men Type: ARTERIAL BLOOD SPECIMENOrdering Facility: [facility] Address: [address] [place] [address] Performed By: #### A LLBG ####[facility] LABCLIA [id number] [place] [address] [place] Carboxyhemoglobin (BldA) [Mass fraction] 1.8 % Normal 0.0-2.0 [facility] Comment on above: Order Comment: Speci men Type: ARTERIAL BLOOD SPECIMENOrdering Facility: [facility] Address: [address] [place] [address] Result Comment: Carb oxyhemoglobin Reference Range for Smokers: 2.0-8.0% Performed By: #### A LLBG ####[facility] LABCLIA [id number] [place] [address] [place] CO2 (Bld) [Partial pressure] 38 mm Hg Normal 36-46 [facility] Comment on above: Order Comment: Speci men Type: ARTERIAL BLOOD SPECIMENOrdering Facility: [facility] Address: [address] [place] [address] Performed By: #### A LLBG ####[facility] LABCLIA [id number] [place] [address] [place] FIO2 30 % Normal [facility] Comment on above: Order Comment: Speci men Type: ARTERIAL BLOOD SPECIMENOrdering Facility: [facility] Address: [address] [place] [address] Performed By: #### A LLBG ####[facility] LABCLIA [id number] [place] [address] [place] Glucose [Mass/Vol] 132 mg/dL High 60-105 [facility] Comment on above: Order Comment: Speci men Type: ARTERIAL BLOOD SPECIMENOrdering Facility: [facility] Address: [address] [place] [address] Performed By: #### A LLBG ####[facility] LABCLIA [id number] [place] [address] [place] HCO3 (Bld) [Moles/Vol] 22 mmol/L Normal 22-26 [facility] Comment on above: Order Comment: Speci men Type: ARTERIAL BLOOD SPECIMENOrdering Facility: [facility] Address: [address] [place] [address] Performed By: #### A LLBG ####[facility] LABCLIA [id number] [place] [address] [place] Hematocrit (Bld) [Volume fraction] 30.2 % Low 39.0-51.0 [facility] Comment on above: Order Comment: Speci men Type: ARTERIAL BLOOD SPECIMENOrdering Facility: [facility] Address: [address], [place] [address] Performed By: #### A LLBG ####[facility] LABCLIA [id number] [place] [address] [place] Hemoglobin (Bld) [Mass/Vol] 9.8 g/dL Low 13.0-17.0 [facility] Comment on above: Order Comment: Speci men Type: ARTERIAL BLOOD SPECIMENOrdering Facility: [facility] Address: [address] [place] [address] Performed By: #### A LLBG ####[facility] LABIA [id number] [place] [address] [place] Lactate [Moles/Vol] 5.3 mmol/L High 0.5-2.2 [facility] Comment on above: Order Comment: Speci men Type: ARTERIAL BLOOD SPECIMENOrdering Facility: [facility] Address: [address] [place] [address] Performed By: #### A LLBG ####[facility] LABIA [id number] [place] [address] [place] Methemoglobin (Bld) [Mass fraction] 0.7 % Normal 0.0-1.5 [facility] Comment on above: Order Comment: Speci men Type: ARTERIAL BLOOD SPECIMENOrdering Facility: [facility] Address: [address] [place] [address] Performed By: #### A LLBG ####[facility] LABIA [id number] [place] [address] [place] O2 THERAPY VENT=Ventilator Normal [facility] Comment on above: Order Comment: Speci men Type: ARTERIAL BLOOD SPECIMENOrdering Facility: [facility] Address: [address] [place] [address] Performed By: #### A LLBG ####[facility] LABCLIA [id number] [place] [address] [place] Oxygen (Bld) [Partial pressure] 148 mm Hg High 85-95 [facility] Comment on above: Order Comment: Speci men Type: ARTERIAL BLOOD SPECIMENOrdering Facility: [facility] Address: [address] [place] [address] Performed By: #### A LLBG ####[facility] LABCLIA [id number] [place] [address] [place] Oxyhemoglobin (BldA) [Mass fraction] 97 % Normal 95-98 [facility] Comment on above: Order Comment: Speci men Type: ARTERIAL BLOOD SPECIMENOrdering Facility: [facility] Address: [address] [place] [address] Performed By: #### A LLBG ####[facility] LABCLIA [id number] [place] [address] [place] PEEP/CPAP 8 cmH2O Normal [facility] Comment on above: Order Comment: Speci men Type: ARTERIAL BLOOD SPECIMENOrdering Facility: [facility] Address: [address] [place] [address] Performed By: #### A LLBG ####[facility] LABCLIA [id number] [place] [address] [place] pH (Bld) 7.38 [pH] Normal 7.35-7.45 [facility] Comment on above: Order Comment: Speci men Type: ARTERIAL BLOOD SPECIMENOrdering Facility: [facility] Address: [address] [place] [address] Performed By: #### A LLBG ####[facility] LABCLIA [id number] [place] [address] [place] PO2 / FIO2 RATIO 493 mmHg Normal >300 [facility] Comment on above: Order Comment: Speci men Type: ARTERIAL BLOOD SPECIMENOrdering Facility: [facility] Address: [address] [place] [address] Performed By: #### A LLBG ####[facility] LABCLIA [id number] [place] [address] [place] Potassium [Moles/Vol] 4.7 mmol/L Normal 3.5-5.0 [facility] Comment on above: Order Comment: Speci men Type: ARTERIAL BLOOD SPECIMENOrdering Facility: [facility] Address: [address] [place] [address] Performed By: #### A LLBG ####[facility] LABCLIA [id number] [place] [address] [place] Sodium [Moles/Vol] 139 mmol/L Normal 136-144 [facility] Comment on above: Order Comment: Speci men Type: ARTERIAL BLOOD SPECIMENOrdering Facility: [facility] Address: [address] [place] [address] Performed By: #### A LLBG ####[facility] LABCLIA [id number] [place] [address] [place] Base deficit (BldA) [Moles/Vol] -3 mmol/L Low -2-0 [facility] Comment on above: Order Comment: Speci men Type: ARTERIAL BLOOD SPECIMENOrdering Facility: [facility] Address: [address] [place] [address] Performed By: #### A LLBG ####[facility] LABCLIA [id number] [place] [address] [place] Body temperature 98.6 [degF] Normal [facility] Comment on above: Order Comment: Speci men Type: ARTERIAL BLOOD SPECIMENOrdering Facility: [facility] Address: [address] [place] [address] Performed By: #### A LLBG ####[facility] LABCLIA [id number] [place] [address] [place] Order Comment: Speci men Type: VENOUS BLOOD SPECIMENOrdering Facility: [facility] Address: [address] [place] [address] Performed By: #### 2 4344-4 ####[facility] LABCLIA [id number] [place] [address] [place] Calcium.ionized (Bld) [Mass/Vol] 1.23 mmol/L Normal 1.08-1.30 [facility] Comment on above: Order Comment: Speci men Type: ARTERIAL BLOOD SPECIMENOrdering Facility: [facility] Address: [address] [place] [address] Performed By: #### A LLBG ####[facility] LABIA [id number] [place] [address] [place] Order Comment: Speci men Type: VENOUS BLOOD SPECIMENOrdering Facility: [facility] Address: [address] [place] [address] Performed By: #### 2 4344-4 ####[facility] LABIA [id number] [place] [address] [place] Calcium.ionized adjusted to pH 7.4 (BldA) [Moles/Vol] 1.21 mmol/L Normal 1.08-1.30 [facility] Comment on above: Order Comment: Speci men Type: ARTERIAL BLOOD SPECIMENOrdering Facility: [facility] Address: [address] [place] [address] Performed By: #### A LLBG ####[facility] LABIA [id number] [place] [address] [place] Carboxyhemoglobin (BldA) [Mass fraction] 1.5 % Normal 0.0-2.0 [facility] Comment on above: Order Comment: Speci men Type: ARTERIAL BLOOD SPECIMENOrdering Facility: [facility] Address: [address] [place] [address] Result Comment: Carb oxyhemoglobin Reference Range for Smokers: 2.0-8.0% Performed By: #### A LLBG ####[facility] LABIA [id number] [place] [address] [place] CO2 (Bld) [Partial pressure] 37 mm Hg Normal 36-46 [facility] Comment on above: Order Comment: Speci men Type: ARTERIAL BLOOD SPECIMENOrdering Facility: [facility] Address: [address] [place] [address] Performed By: #### A LLBG ####[facility] LABCLIA [id number] [place] [address] [place] FIO2 30 % Normal [facility] Comment on above: Order Comment: Speci men Type: ARTERIAL BLOOD SPECIMENOrdering Facility: [facility] Address: [address] [place] [address] Performed By: #### A LLBG ####[facility] LABCLIA [id number] [place] [address] [place] Order Comment: Speci men Type: VENOUS BLOOD SPECIMENOrdering Facility: [facility] Address: [address] [place] [address] Performed By: #### 2 4344-4 ####[facility] LABCLIA [id number] [place] [address] [place] Glucose [Mass/Vol] 113 mg/dL High 60-105 [facility] Comment on above: Order Comment: Speci men Type: ARTERIAL BLOOD SPECIMENOrdering Facility: [facility] Address: [address] [place] [address] Performed By: #### A LLBG ####[facility] LABCLIA [id number] [place] [address] [place] HCO3 (Bld) [Moles/Vol] 21 mmol/L Low 22-26 [facility] Comment on above: Order Comment: Speci men Type: ARTERIAL BLOOD SPECIMENOrdering Facility: [facility] Address: [address] [place] [address] Performed By: #### A LLBG ####[facility] LABCLIA [id number] [place] [address] [place] Hematocrit (Bld) [Volume fraction] 30.2 % Low 39.0-51.0 [facility] Comment on above: Order Comment: Speci men Type: ARTERIAL BLOOD SPECIMENOrdering Facility: [facility] Address: [address] [place] [address] Performed By: #### A LLBG ####[facility] LABIA [id number] [place] [address] [place] Hemoglobin (Bld) [Mass/Vol] 9.8 g/dL Low 13.0-17.0 [facility] Comment on above: Order Comment: Speci men Type: ARTERIAL BLOOD SPECIMENOrdering Facility: [facility] Address: [address] [place] [address] Performed By: #### A LLBG ####[facility] LABIA [id number] [place] [address] [place] Lactate [Moles/Vol] 5.8 mmol/L High 0.5-2.2 [facility] Comment on above: Order Comment: Speci men Type: ARTERIAL BLOOD SPECIMENOrdering Facility: [facility] Address: [address] [place] [address] Performed By: #### A LLBG ####[facility] LABIA [id number] [place] [address] [place] Methemoglobin (Bld) [Mass fraction] 0.6 % Normal 0.0-1.5 [facility] Comment on above: Order Comment: Speci men Type: ARTERIAL BLOOD SPECIMENOrdering Facility: [facility] Address: [address] [place] [address] Performed By: #### A LLBG ####[facility] LABIA [id number] [place] [address] [place] O2 THERAPY VENT=Ventilator Normal [facility] Comment on above: Order Comment: Speci men Type: ARTERIAL BLOOD SPECIMENOrdering Facility: [facility] Address: [address] [place] [address] Performed By: #### A LLBG ####[facility] LABCLIA [id number] [place] [address] [place] Order Comment: Speci men Type: VENOUS BLOOD SPECIMENOrdering Facility: [facility] Address: [address] [id number] Performed By: #### 2 4344-4 ####[facility] LABCLIA [id number] [place] [address] [place] Oxygen (Bld) [Partial pressure] 136 mm Hg High 85-95 [facility] Comment on above: Order Comment: Speci men Type: ARTERIAL BLOOD SPECIMENOrdering Facility: [facility] Address: [address] [place] [address] Performed By: #### A LLBG ####[facility] LABCLIA [id number] [place] [address] [place] Oxyhemoglobin (BldA) [Mass fraction] 97 % Normal 95-98 [facility] Comment on above: Order Comment: Speci men Type: ARTERIAL BLOOD SPECIMENOrdering Facility: [facility] Address: [address] [place] [address] Performed By: #### A LLBG ####[facility] LABCLIA [id number] [place] [address] [place] PEEP/CPAP 8 cmH2O Normal [facility] Comment on above: Order Comment: Speci men Type: ARTERIAL BLOOD SPECIMENOrdering Facility: [facility] Address: [address] [place] [address] Performed By: #### A LLBG ####[facility] LABCLIA [id number] [place] [address] [place] Order Comment: Speci men Type: VENOUS BLOOD SPECIMENOrdering Facility: [facility] Address: [address] [id number] Performed By: #### 2 4344-4 ####[facility] LABCLIA [id number] [place] [address] [place] pH (Bld) 7.37 [pH] Normal 7.35-7.45 [facility] Comment on above: Order Comment: Speci men Type: ARTERIAL BLOOD SPECIMENOrdering Facility: [facility] Address: [address] [place] [address] Performed By: #### A LLBG ####[facility] LABCLIA [id number] [place] [address] [place] PO2 / FIO2 RATIO 453 mmHg Normal >300 [facility] Comment on above: Order Comment: Speci men Type: ARTERIAL BLOOD SPECIMENOrdering Facility: [facility] Address: [address] [place] [address] Performed By: #### A LLBG ####[facility] LABCLIA [id number] [place] [address] [place] Potassium [Moles/Vol] 4.4 mmol/L Normal 3.5-5.0 [facility] Comment on above: Order Comment: Speci men Type: ARTERIAL BLOOD SPECIMENOrdering Facility: [facility] Address: [address] [place] [address] Performed By: #### A LLBG ####[facility] LABCLIA [id number] [place] [address] [place] Sodium [Moles/Vol] 140 mmol/L Normal 136-144 [facility] Comment on above: Order Comment: Speci men Type: ARTERIAL BLOOD SPECIMENOrdering Facility: [facility] Address: [address] [place] [address] Performed By: #### A LLBG ####[facility] LABCLIA [id number] [place] [address] [place] Order Comment: Speci men Type: VENOUS BLOOD SPECIMENOrdering Facility: [facility] Address: [address] [place] [address] Performed By: #### 2 [id number] ####[facility] LABIA [id number] [place] [address] [place] Base deficit (BldA) [Moles/Vol] -5 mmol/L Low -2-0 [facility] Comment on above: Order Comment: Speci men Type: ARTERIAL BLOOD SPECIMENOrdering Facility: [facility] Address: [address] [place] [address] Performed By: #### A LLBG ####[facility] LABIA [id number] [place] [address] [place] Calcium.ionized (Bld) [Mass/Vol] 1.23 mmol/L Normal 1.08-1.30 [facility] Comment on above: Order Comment: Speci men Type: ARTERIAL BLOOD SPECIMENOrdering Facility: [facility] Address: [address] [place] [address] Performed By: #### A LLBG ####[facility] [id number] [place] [address] [place] Calcium.ionized adjusted to pH 7.4 (BldA) [Moles/Vol] 1.18 mmol/L Normal 1.08-1.30 [facility] Comment on above: Order Comment: Speci men Type: ARTERIAL BLOOD SPECIMENOrdering Facility: [facility] Address: [address] [place] [address] Performed By: #### A LLBG ####[facility] LABIA [id number] [place] [address] [place] Carboxyhemoglobin (BldA) [Mass fraction] 1.4 % Normal 0.0-2.0 [facility] Comment on above: Order Comment: Speci men Type: ARTERIAL BLOOD SPECIMENOrdering Facility: [facility] Address: [address] [place] [address] Result Comment: Carb oxyhemoglobin Reference Range for Smokers: 2.0-8.0% Performed By: #### A LLBG ####[facility] LABCLIA [id number] [place] [address] [place] CO2 (Bld) [Partial pressure] 41 mm Hg Normal 36-46 [facility] Comment on above: Order Comment: Speci men Type: ARTERIAL BLOOD SPECIMENOrdering Facility: [facility] Address: [address] [place] [address] Performed By: #### A LLBG ####[facility] LABCLIA [id number] [place] [address] [place] Glucose [Mass/Vol] 130 mg/dL High 60-105 [facility] Comment on above: Order Comment: Speci men Type: ARTERIAL BLOOD SPECIMENOrdering Facility: [facility] Address: [address] [place] [address] Performed By: #### A LLBG ####[facility] LABCLIA [id number] [place] [address] [place] HCO3 (Bld) [Moles/Vol] 20 mmol/L Low 22-26 [facility] Comment on above: Order Comment: Speci men Type: ARTERIAL BLOOD SPECIMENOrdering Facility: [facility] Address: [address] [place] [address] Performed By: #### A LLBG ####[facility] LABCLIA [id number] [place] [address] [place] Hematocrit (Bld) [Volume fraction] 29.4 % Low 39.0-51.0 [facility] Comment on above: Order Comment: Speci men Type: ARTERIAL BLOOD SPECIMENOrdering Facility: [facility] Address: [address] [place] [address] Performed By: #### A LLBG ####[facility] LABCLIA [id number] [place] [address] [place] Hemoglobin (Bld) [Mass/Vol] 9.5 g/dL Low 13.0-17.0 [facility] Comment on above: Order Comment: Speci men Type: ARTERIAL BLOOD SPECIMENOrdering Facility: [facility] Address: [address] [id number] Performed By: #### A LLBG ####[facility] LABCLIA [id number] [place] [address] [place] Lactate [Moles/Vol] 9.1 mmol/L High 0.5-2.2 [facility] Comment on above: Order Comment: Speci men Type: ARTERIAL BLOOD SPECIMENOrdering Facility: [facility] Address: [address] [place], [place] [address] Performed By: #### A LLBG ####[facility] LABCLIA [id number] [place] [address] [place] Methemoglobin (Bld) [Mass fraction] 1.6 % High 0.0-1.5 [facility] Comment on above: Order Comment: Speci men Type: ARTERIAL BLOOD SPECIMENOrdering Facility: [facility] Address: [address] [place] [address] Performed By: #### A LLBG ####[facility] LABCLIA [id number] [place] [address] [place] Oxygen (Bld) [Partial pressure] 148 mm Hg High 85-95 [facility] Comment on above: Order Comment: Speci men Type: ARTERIAL BLOOD SPECIMENOrdering Facility: [facility] Address: [address] [place] [address] Performed By: #### A LLBG ####[facility] LABCLIA [id number] [place] [address] [place] Oxyhemoglobin (BldA) [Mass fraction] 96 % Normal 95-98 [facility] Comment on above: Order Comment: Speci men Type: ARTERIAL BLOOD SPECIMENOrdering Facility: [facility] Address: [address] [place], [place] [address] Performed By: #### A LLBG ####[facility] LABCLIA [id number] [place] [address] [place] pH (Bld) 7.31 [pH] Low 7.35-7.45 [facility] Comment on above: Order Comment: Speci men Type: ARTERIAL BLOOD SPECIMENOrdering Facility: [facility] Address: [address] [place] [address] Performed By: #### A LLBG ####[facility] LABIA [id number] [place] [address] [place] Sodium [Moles/Vol] 140 mmol/L Normal 136-144 [facility] Comment on above: Order Comment: Speci men Type: ARTERIAL BLOOD SPECIMENOrdering Facility: [facility] Address: [address] [place] [address] Performed By: #### A LLBG ####[facility] [id number] [place] [address] [place] Base deficit (BldA) [Moles/Vol] -6 mmol/L Low -2-0 [facility] Comment on above: Order Comment: Speci men Type: ARTERIAL BLOOD SPECIMENOrdering Facility: [facility] Address: [address] [place] [address] Performed By: #### A LLBG ####[facility] LABIA [id number] [place] [address] [place] Calcium.ionized (Bld) [Mass/Vol] 1.21 mmol/L Normal 1.08-1.30 [facility] Comment on above: Order Comment: Speci men Type: ARTERIAL BLOOD SPECIMENOrdering Facility: [facility] Address: [address] [place] [address] Performed By: #### A LLBG ####[facility] LABIA [id number] [place] [address] [place] Calcium.ionized adjusted to pH 7.4 (BldA) [Moles/Vol] 1.16 mmol/L Normal 1.08-1.30 [facility] Comment on above: Order Comment: Speci men Type: ARTERIAL BLOOD SPECIMENOrdering Facility: [facility] Address: [address] [place] [address] Performed By: #### A LLBG ####[facility] LABCLIA [id number] [address] [address] [place] Carboxyhemoglobin (BldA) [Mass fraction] 1.0 % Normal 0.0-2.0 [facility] Comment on above: Order Comment: Speci men Type: ARTERIAL BLOOD SPECIMENOrdering Facility: [facility] Address: [address] [place] [address] Result Comment: Carb oxyhemoglobin Reference Range for Smokers: 2.0-8.0% Performed By: #### A LLBG ####[facility] LABCLIA [id number] [place] [address] [place] CO2 (Bld) [Partial pressure] 39 mm Hg Normal 36-46 [facility] Comment on above: Order Comment: Speci men Type: ARTERIAL BLOOD SPECIMENOrdering Facility: [facility] Address: [address] [place] [address] Performed By: #### A LLBG ####[facility] LABCLIA [id number] [place] [address] [place] COMMENTS Urgent Value: LAC Normal [facility] Comment on above: Order Comment: Speci men Type: ARTERIAL BLOOD SPECIMENOrdering Facility: [facility] Address: [address] [place] [address] Performed By: #### A LLBG ####[facility] LABCLIA [id number] [place] [address] [place] DATE/TIME NOTIFIED [id number] 194969 AM Normal [facility] Comment on above: Order Comment: Speci men Type: ARTERIAL BLOOD SPECIMENOrdering Facility: [facility] Address: [address] [place] [address] Performed By: #### A LLBG ####[facility] LABCLIA [id number] [place] [address] [place] HCO3 (Bld) [Moles/Vol] 19 mmol/L Low 22-26 [facility] Comment on above: Order Comment: Speci men Type: ARTERIAL BLOOD SPECIMENOrdering Facility: [facility] Address: [address] [place] [address] Performed By: #### A LLBG ####[facility] LABCLIA [id number] [place] [address] [place] Hematocrit (Bld) [Volume fraction] 30.8 % Low 39.0-51.0 [facility] Comment on above: Order Comment: Speci men Type: ARTERIAL BLOOD SPECIMENOrdering Facility: [facility] Address: [address] [place] [address] Performed By: #### A LLBG ####[facility] LABIA [id number] [place] [address] [place] Hemoglobin (Bld) [Mass/Vol] 10.0 g/dL Low 13.0-17.0 [facility] Comment on above: Order Comment: Speci men Type: ARTERIAL BLOOD SPECIMENOrdering Facility: [facility] Address: [address] [place] [address] Performed By: #### A LLBG ####[facility] LABCLIA [id number] [place] [address] [place] Lactate [Moles/Vol] 10.2 mmol/L High 0.5-2.2 [facility] Comment on above: Order Comment: Speci men Type: ARTERIAL BLOOD SPECIMENOrdering Facility: [facility] Address: [address] [place] [address] Performed By: #### A LLBG ####[facility] LABCLIA [id number] [place] [address] [place] Methemoglobin (Bld) [Mass fraction] 1.1 % Normal 0.0-1.5 [facility] Comment on above: Order Comment: Speci men Type: ARTERIAL BLOOD SPECIMENOrdering Facility: [facility] Address: [address] [place] [address] Performed By: #### A LLBG ####[facility] LABCLIA [id number] [place] [address] [place] NOTIFIED WHOM Lalitha CARRIZALES RN Q50 Tg HOOKS Normal [facility] Comment on above: Order Comment: Speci men Type: ARTERIAL BLOOD SPECIMENOrdering Facility: [facility] Address: [address] [place] [address] Performed By: #### A LLBG ####[facility] LABCLIA [id number] [place] [address] [place] Oxygen (Bld) [Partial pressure] 168 mm Hg High 85-95 [facility] Comment on above: Order Comment: Speci men Type: ARTERIAL BLOOD SPECIMENOrdering Facility: [facility] Address: [address] [place] [address] Performed By: #### A LLBG ####[facility] LABCLIA [id number] [place] [address] [place] Oxyhemoglobin (BldA) [Mass fraction] 97 % Normal 95-98 [facility] Comment on above: Order Comment: Speci men Type: ARTERIAL BLOOD SPECIMENOrdering Facility: [facility] Address: [address] [place] [address] Performed By: #### A LLBG ####[facility] LABCLIA [id number] [place] [address] [place] pH (Bld) 7.31 [pH] Low 7.35-7.45 [facility] Comment on above: Order Comment: Speci men Type: ARTERIAL BLOOD SPECIMENOrdering Facility: [facility] Address: [address] [place] [address] Performed By: #### A LLBG ####[facility] LABCLIA [id number] [place] [address] [place] Potassium [Moles/Vol] 3.8 mmol/L Normal 3.5-5.0 [facility] Comment on above: Order Comment: Speci men Type: ARTERIAL BLOOD SPECIMENOrdering Facility: [facility] Address: [address] [place] [address] Performed By: #### A LLBG ####[facility] LABCLIA [id number] [place] [address] [place] Sodium [Moles/Vol] 140 mmol/L Normal 136-144 [facility] Comment on above: Order Comment: Speci men Type: ARTERIAL BLOOD SPECIMENOrdering Facility: [facility] Address: [address] [place] [address] Performed By: #### A LLBG ####[facility] LABCLIA [id number] [place] [address] [place] CBC panel Auto (Bld)on 06-19 Erythrocyte distribution width (RBC) [Ratio] 14.5 % Normal 11.5-15.0 [facility] Comment on above: Order Comment: Speci men Type: BLOOD SPECIMENOrdering Facility: [facility] Address: [address] [place] [address] Performed By: #### 5 8410-2 ####[facility] LABIA [id number] [place] [address] [place] Hematocrit (Bld) [Volume fraction] 29.4 % Low 39.0-51.0 [facility] Comment on above: Order Comment: Speci men Type: BLOOD SPECIMENOrdering Facility: [facility] Address: [address] [place] [address] Performed By: #### 5 8410-2 ####[facility] LABCLIA [id number] [place] [address] [place] Hemoglobin (Bld) [Mass/Vol] 9.6 g/dL Low 13.0-17.0 [facility] Comment on above: Order Comment: Speci men Type: BLOOD SPECIMENOrdering Facility: [facility] Address: [address] [place] [address] Performed By: #### 5 8410-2 ####[facility] LABIA [id number] [place] [address] [place] MCH (RBC) [Entitic mass] 29.8 pg Normal 26.0-34.0 [facility] Comment on above: Order Comment: Speci men Type: BLOOD SPECIMENOrdering Facility: [facility] Address: [address] [place] [address] Performed By: #### 5 8410-2 ####[facility] LABIA [id number] [place] [address] [place] MCHC (RBC) [Mass/Vol] 32.7 g/dL Normal 30.5-36.0 [facility] Comment on above: Order Comment: Speci men Type: BLOOD SPECIMENOrdering Facility: [facility] Address: [address] [place] [address] Performed By: #### 5 8410-2 ####[facility] LABIA [id number] [place] [address] [place] MCV (RBC) [Entitic vol] 91.3 fL Normal 80.0-100.0 [facility] Comment on above: Order Comment: Speci men Type: BLOOD SPECIMENOrdering Facility: [facility] Address: [address] [place] [address] Performed By: #### 5 8410-2 ####[facility] LABIA [id number] [place] [address] [place] Nucleated RBC (Bld) [#/Vol] 10*3/uL Normal <0.01 [facility] Comment on above: Order Comment: Speci men Type: BLOOD SPECIMENOrdering Facility: [facility] Address: [address] [place] [address] Performed By: #### 5 8410-2 ####[facility] LABCLIA [id number] [place] [address] [place] Platelet mean volume (Bld) [Entitic vol] 10.7 fL Normal 9.0-12.7 [facility] Comment on above: Order Comment: Speci men Type: BLOOD SPECIMENOrdering Facility: [facility] Address: [address] [place] [address] Performed By: #### 5 8410-2 ####[facility] LABCLIA [id number] [place] [address] [place] Platelets (Bld) [#/Vol] 171 10*3/uL Normal 150-400 [facility] Comment on above: Order Comment: Speci men Type: BLOOD SPECIMENOrdering Facility: [facility] Address: [address] [place] [address] Performed By: #### 5 8410-2 ####[facility] LABCLIA [id number] [place] [address] [place] RBC (Bld) [#/Vol] 3.22 10*6/uL Low 4.20-6.00 [facility] Comment on above: Order Comment: Speci men Type: BLOOD SPECIMENOrdering Facility: [facility] Address: [address] [place] [address] Performed By: #### 5 8410-2 ####[facility] LABCLIA [id number] [place] [address] [place] WBC (Bld) [#/Vol] 16.87 10*3/uL High 3.70-11.00 [facility] Comment on above: Order Comment: Speci men Type: BLOOD SPECIMENOrdering Facility: [facility] Address: [address] [place] [address] Performed By: #### 5 8410-2 ####[facility] LABCLIA [id number] [place] [address] [place] Comprehensive metabolic 2000 panelon 06-19-2024 Albumin [Mass/Vol] 3.0 g/dL Low 3.9-4.9 [facility] Comment on above: Order Comment: Speci men Type: BLOOD SPECIMENOrdering Facility: [facility] Address: [address] [place] [address] Performed By: #### 2 4323-8, HSTNT ####[facility] LABCLIA [id number] [place] [address] [place] ALP [Catalytic activity/Vol] 30 U/L Low 38-113 [facility] Comment on above: Order Comment: Speci men Type: BLOOD SPECIMENOrdering Facility: [facility] Address: [address] [place] [address] Performed By: #### 2 4323-8, HSTNT ####[facility] LABCLIA [id number] [place] [address] [place] ALT [Catalytic activity/Vol] 25 U/L Normal 10-54 [facility] Comment on above: Order Comment: Speci men Type: BLOOD SPECIMENOrdering Facility: [facility] Address: [address] [place] [address] Performed By: #### 2 4323-8, HSTNT ####[facility] LABIA [id number] [place] [address] [place] Anion gap [Moles/Vol] 15 mmol/L Normal 8-15 [facility] Comment on above: Order Comment: Speci men Type: BLOOD SPECIMENOrdering Facility: [facility] Address: [address] [place] [address] Performed By: #### 2 4323-8, HSTNT ####[facility] LABCLIA [id number] [place] [address] [place] AST [Catalytic activity/Vol] 81 U/L High 14-40 [facility] Comment on above: Order Comment: Speci men Type: BLOOD SPECIMENOrdering Facility: [facility] Address: [address] [place] [address] Performed By: #### 2 4323-8, HSTNT ####[facility] LABCLIA [id number] [place] [address] [place] Bilirubin [Mass/Vol] 0.7 mg/dL Normal 0.2-1.3 [facility] Comment on above: Order Comment: Speci men Type: BLOOD SPECIMENOrdering Facility: [facility] Address: [address] [place] [address] Performed By: #### 2 4323-8, HSTNT ####[facility] LABCLIA [id number] [place] [address] [place] Calcium [Mass/Vol] 8.6 mg/dL Normal 8.5-10.2 [facility] Comment on above: Order Comment: Speci men Type: BLOOD SPECIMENOrdering Facility: [facility] Address: [address] [place] [address] Performed By: #### 2 4323-8, HSTNT ####[facility] LABCLIA [id number] [place] [address] [place] Chloride [Moles/Vol] 109 mmol/L High 98-107 [facility] Comment on above: Order Comment: Speci men Type: BLOOD SPECIMENOrdering Facility: [facility] Address: [address] [place] [address] Performed By: #### 2 4323-8, HSTNT ####[facility] LABCLIA [id number] [place] [address] [place] CO2 [Moles/Vol] 20 mmol/L Low 22-30 [facility] Comment on above: Order Comment: Speci men Type: BLOOD SPECIMENOrdering Facility: [facility] Address: [address] [place], [place] [address] Performed By: #### 2 4323-8, HSTNT ####[facility] LABCLIA [id number] [place] [id number] [place] Creatinine [Mass/Vol] 1.86 mg/dL High 0.73-1.22 [facility] Comment on above: Order Comment: Bobby men Type: BLOOD SPECIMENOrdering Facility: [facility] Address: [address] [place] [address] Performed By: #### 2 4323-8, HSTNT ####[facility] LABIA [id number] [place] [address] [place] Creatinine and Glomerular filtration rate.predicted panel (S/P/Bld) 37 mL/min/1.73m??? Low >=60 [facility] Comment on above: Order Comment: Bobby villalpando Type: BLOOD SPECIMENOrdering Facility: [facility] Address: [address] [place] [address] Result Comment: Annalisa mated Glomerular Filtration Rate (eGFR) is calculated using the 2020 CKD-EPI creatinine equation. This equation utilizes serum creatinine, sex, and age as parameters. The creatinine assay has traceable calibration to isotope dilution-mass spectrometry. Refer to KDIGO guidelines for clinical interpretation. In patients with unstable renal function, e.g. those with acute kidney injury, the eGFR may not accurately reflect actual GFR. Performed By: #### 2 4323-8, HSTNT ####[facility] LABIA [id number] [place] [address] [place] Glucose [Mass/Vol] 117 mg/dL High 74-99 [facility] Comment on above: Order Comment: Chandanai men Type: BLOOD SPECIMENOrdering Facility: [facility] Address: [address] [place] [address] Result Comment: The [place] [employer] (ADA) provides guidance for cutoff values for fasting glucose and random glucose. The ADA defines fasting as no caloric intake for at least 8 hours. Fasting plasma glucose results between 100 to 125 mg/dL indicate increased risk for diabetes (prediabetes).Fasting plasma glucose results greater than or equal to 126 mg/dL meet the criteria for diagnosis of diabetes. In the absence of unequivocal hyperglycemia, results should be confirmed by repeat testing. In a patient with classic symptoms of hyperglycemia or hyperglycemic crisis, random plasma glucose results greater than or equal to 200 mg/dL meet the criteria for diagnosis of diabetes.Reference: Standards of Medical Care in Diabetes 2016, [place] [employer]. Diabetes Care. 2016.39(Suppl 1). Performed By: #### 2 4323-8, HSTNT ####[facility] LABCLIA [id number] [place] [address] [place] Potassium [Moles/Vol] 4.5 mmol/L Normal 3.7-5.1 [facility] Comment on above: Order Comment: Speci men Type: BLOOD SPECIMENOrdering Facility: [facility] Address: [address] [place] [address] Performed By: #### 2 4323-8, HSTNT ####[facility] LABCLIA [id number] [place] [address] [place] Protein [Mass/Vol] 4.5 g/dL Low 6.3-8.0 [facility] Comment on above: Order Comment: Chandanai kwasi Type: BLOOD SPECIMENOrdering Facility: [facility] Address: [address] [place] [address] Performed By: #### 2 4323-8, HSTNT ####[facility] LABCLIA [id number] [place] [id number] [place] Sodium [Moles/Vol] 144 mmol/L Normal 136-144 [facility] Comment on above: Order Comment: Speci men Type: BLOOD SPECIMENOrdering Facility: [facility] Address: [address] [place] [address] Performed By: #### 2 4323-8, HSTNT ####[facility] LABCLIA [id number] [place] [id number] [place] Urea nitrogen [Mass/Vol] 26 mg/dL High 9-24 [facility] Comment on above: Order Comment: Speci men Type: BLOOD SPECIMENOrdering Facility: [facility] Address: [address] [place] [address] Performed By: #### 2 4323-8, HSTNT ####[facility] LABCLIA [id number] [place] [address] [place] Gas + CO Pnl BldVon 06-19-20 24 Body temperature 98.6 [degF] Normal [facility] Comment on above: Order Comment: Speci men Type: VENOUS BLOOD SPECIMENOrdering Facility: [facility] Address: [address] [place] [address] Performed By: #### 2 4344-4 ####[facility] LABCLIA [id number] [address] [place] Order Comment: Speci men Type: ARTERIAL BLOOD SPECIMENOrdering Facility: [facility] Address: [address] [place] [address] Performed By: #### A LLBG ####[facility] LABCLIA [id number] [address] [place] Hematocrit (Bld) [Volume fraction] 27.0 % Low 39.0-51.0 [facility] Comment on above: Order Comment: Speci men Type: VENOUS BLOOD SPECIMENOrdering Facility: [facility] Address: [address] [place] [address] Performed By: #### 2 4344-4 ####[facility] LABCLIA [id number] [address] [place] Order Comment: Speci men Type: ARTERIAL BLOOD SPECIMENOrdering Facility: [facility] Address: [address] [place] [address] Performed By: #### A LLBG ####[facility] LABCLIA [id number] [place] [address] [place] Hemoglobin (Bld) [Mass/Vol] 8.7 g/dL Low 13.0-17.0 [facility] Comment on above: Order Comment: Speci men Type: VENOUS BLOOD SPECIMENOrdering Facility: [facility] Address: [address] [place] [address] Performed By: #### 2 4344-4 ####[facility] LABCLIA [id number] [place] [address] [place] Order Comment: Speci men Type: ARTERIAL BLOOD SPECIMENOrdering Facility: [facility] Address: [address] [place] [address] Performed By: #### A LLBG ####[facility] LABCLIA [id number] [place] [address] [place] LITERS 2 Liters/min Normal [facility] Comment on above: Order Comment: Speci men Type: VENOUS BLOOD SPECIMENOrdering Facility: [facility] Address: [address] [place] [address] Performed By: #### 2 4344-4 ####[facility] LABCLIA [id number] [address] [place] Order Comment: Speci men Type: ARTERIAL BLOOD SPECIMENOrdering Facility: [facility] Address: [address] [place] [address] Performed By: #### A LLBG ####[facility] LABCLIA [id number] [place] [address] [place] O2 THERAPY NC = Nasal Cannula Normal [facility] Comment on above: Order Comment: Speci men Type: VENOUS BLOOD SPECIMENOrdering Facility: [facility] Address: [address] [place] [address] Performed By: #### 2 4344-4 ####[facility] LABCLIA [id number] [place] [address] [place] Order Comment: Speci men Type: ARTERIAL BLOOD SPECIMENOrdering Facility: [facility] Address: [address] [place] [id number] Performed By: #### A LLBG ####[facility] LABCLIA [id number] [place] [id number] [place] Body temperature 98.6 [degF] Normal [facility] Comment on above: Order Comment: Speci men Type: VENOUS BLOOD SPECIMENOrdering Facility: [facility] Address: [address] [place], [place] [address] Performed By: #### 2 4344-4 ####[facility] LABCLIA [id number] [place] [address] [place] Order Comment: Speci men Type: ARTERIAL BLOOD SPECIMENOrdering Facility: [facility] Address: [address] [place] [id number] Performed By: #### A LLBG ####[facility] LABCLIA [id number] [place] [address] [place] LITERS 2 Liters/min Normal [facility] Comment on above: Order Comment: Speci men Type: VENOUS BLOOD SPECIMENOrdering Facility: [facility] Address: [address] [place], [place] [address] Performed By: #### 2 4344-4 ####[facility] LABCLIA [id number] [place] [address] [place] Order Comment: Speci men Type: ARTERIAL BLOOD SPECIMENOrdering Facility: [facility] Address: [address] [id number] Performed By: #### A LLBG ####[facility] LABCLIA [id number] [place] [id number] [place] O2 THERAPY NC = Nasal Cannula Normal [facility] Comment on above: Order Comment: Speci men Type: VENOUS BLOOD SPECIMENOrdering Facility: [facility] Address: [address] [place] [address] Performed By: #### 2 4344-4 ####[facility] LABCLIA [id number] [address] [place] Order Comment: Speci men Type: ARTERIAL BLOOD SPECIMENOrdering Facility: [facility] Address: [address] [place], [place] [address] Performed By: #### A LLBG ####[facility] LABCLIA [id number] [place] [address] [place] Potassium [Moles/Vol] 5.0 mmol/L Normal 3.5-5.0 [facility] Comment on above: Order Comment: Speci men Type: VENOUS BLOOD SPECIMENOrdering Facility: [facility] Address: [address] [place] [address] Performed By: #### 2 4344-4 ####[facility] LABCLIA [id number] [address] [place] Order Comment: Speci men Type: ARTERIAL BLOOD SPECIMENOrdering Facility: [facility] Address: [address] [place] [address] Performed By: #### A LLBG ####[facility] LABCLIA [id number] [address] [place] Body temperature 98.6 [degF] Normal [facility] Comment on above: Order Comment: Speci men Type: VENOUS BLOOD SPECIMENOrdering Facility: [facility] Address: [address] [place] [address] Performed By: #### 2 4344-4 ####[facility] LABCLIA [id number] [address] [place] Order Comment: Speci men Type: ARTERIAL BLOOD SPECIMENOrdering Facility: [facility] Address: [address] [place] [address] Performed By: #### A LLBG ####[facility] LABCLIA [id number] [address] [place] Hemoglobin (Bld) [Mass/Vol] 9.8 g/dL Low 13.0-17.0 [facility] Comment on above: Order Comment: Speci men Type: VENOUS BLOOD SPECIMENOrdering Facility: [facility] Address: [address] [address] Performed By: #### 2 4344-4 ####[facility] LABCLIA [id number] [address] [place] Order Comment: Speci men Type: ARTERIAL BLOOD SPECIMENOrdering Facility: [facility] Address: [address] [place] [address] Performed By: #### A LLBG ####[facility] LABCLIA [id number] [address] [place] O2 THERAPY Positive Normal [facility] Comment on above: Order Comment: Speci men Type: VENOUS BLOOD SPECIMENOrdering Facility: [facility] Address: [address] [place] [address] Performed By: #### 2 4344-4 ####[facility] LABCLIA [id number] [address] [place] Order Comment: Speci men Type: ARTERIAL BLOOD SPECIMENOrdering Facility: [facility] Address: [address] [place] [address] Performed By: #### A LLBG ####[facility] LABCLIA [id number] [place] [address] [place] Body temperature 98.6 [degF] Normal [facility] Comment on above: Order Comment: Speci men Type: VENOUS BLOOD SPECIMENOrdering Facility: [facility] Address: [address] [place], [place] [address] Performed By: #### 2 4344-4 ####[facility] LABCLIA [id number] [address] [place] Order Comment: Speci men Type: ARTERIAL BLOOD SPECIMENOrdering Facility: [facility] Address: [address] [id number] Performed By: #### A LLBG ####[facility] LABCLIA [id number] [place] [address] [place] O2 THERAPY VENT=Ventilator Normal [facility] Comment on above: Order Comment: Speci men Type: VENOUS BLOOD SPECIMENOrdering Facility: [facility] Address: [address] [place], [place] [address] Performed By: #### 2 4344-4 ####[facility] LABCLIA [id number] [place] [address] [place] Order Comment: Speci men Type: ARTERIAL BLOOD SPECIMENOrdering Facility: [facility] Address: [address] [place] [address] Performed By: #### A LLBG ####[facility] LABCLIA [id number] [place] [address] [place] Potassium [Moles/Vol] 3.8 mmol/L Normal 3.5-5.0 [facility] Comment on above: Order Comment: Speci men Type: VENOUS BLOOD SPECIMENOrdering Facility: [facility] Address: [address] [place], [place] [address] Performed By: #### 2 4344-4 ####[facility] LABCLIA [id number] [place] [address] [place] Order Comment: Speci men Type: ARTERIAL BLOOD SPECIMENOrdering Facility: [facility] Address: [address] [id number] Performed By: #### A LLBG ####[facility] LABCLIA [id number] [place] [address] [place] Body temperature 98.6 [degF] Normal [facility] Comment on above: Order Comment: Speci men Type: VENOUS BLOOD SPECIMENOrdering Facility: [facility] Address: [address] [place], [place] [address] Performed By: #### 2 4344-4 ####[facility] LABCLIA [id number] [address] [address] [place] Order Comment: Speci men Type: ARTERIAL BLOOD SPECIMENOrdering Facility: [facility] Address: [address] [id number] Performed By: #### A LLBG ####[facility] LABCLIA [id number] [place] [id number] [place] Glucose [Mass/Vol] 156 mg/dL High 60-105 [facility] Comment on above: Order Comment: Speci men Type: VENOUS BLOOD SPECIMENOrdering Facility: [facility] Address: [address] [place] [address] Performed By: #### 2 4344-4 ####[facility] LABCLIA [id number] [place] [address] [place] Order Comment: Speci men Type: ARTERIAL BLOOD SPECIMENOrdering Facility: [facility] Address: [address] [address] Performed By: #### A LLBG ####[facility] LABCLIA [id number] [place] [address] [place] O2 THERAPY VENT=Ventilator Normal [facility] Comment on above: Order Comment: Speci men Type: VENOUS BLOOD SPECIMENOrdering Facility: [facility] Address: [address] [address] Performed By: #### 2 4344-4 ####[facility] LABCLIA [id number] [place] [id number] [place] Order Comment: Speci men Type: ARTERIAL BLOOD SPECIMENOrdering Facility: [facility] Address: [address] [id number] Performed By: #### A LLBG ####[facility] LABCLIA [id number] [place] [id number] [place] PEEP/CPAP 10 cmH2O Normal [facility] Comment on above: Order Comment: Speci men Type: VENOUS BLOOD SPECIMENOrdering Facility: [facility] Address: [address] [place] [address] Performed By: #### 2 4344-4 ####[facility] LABCLIA [id number] [place] [address] [place] Order Comment: Speci men Type: ARTERIAL BLOOD SPECIMENOrdering Facility: [facility] Address: [address] [place] [address] Performed By: #### A LLBG ####[facility] LABCLIA [id number] [place] [address] [place] Gas and Carbon monoxide pane l (BldV)on 06-19-2024 Base excess Calc (BldV) [Moles/Vol] 2 mmol/L Normal 0-2 [facility] Comment on above: Order Comment: Speci men Type: VENOUS BLOOD SPECIMENOrdering Facility: [facility] Address: [address] [place] [address] Performed By: #### 2 4344-4 ####[facility] LABCLIA [id number] [place] [address] [place] Body temperature 98.6 [degF] Normal [facility] Comment on above: Order Comment: Speci men Type: VENOUS BLOOD SPECIMENOrdering Facility: [facility] Address: [address] [place] [address] Performed By: #### 2 4344-4 ####[facility] LABCLIA [id number] [place] [address] [place] Calcium.ionized (Bld) [Mass/Vol] 1.21 mmol/L Normal 1.08-1.30 [facility] Comment on above: Order Comment: Speci men Type: VENOUS BLOOD SPECIMENOrdering Facility: [facility] Address: [address] [place] [address] Performed By: #### 2 4344-4 ####[facility] LABIA [id number] [place] [address] [place] Calcium.ionized adjusted to pH 7.4 (BldA) [Moles/Vol] 1.18 mmol/L Normal 1.08-1.30 [facility] Comment on above: Order Comment: Speci men Type: VENOUS BLOOD SPECIMENOrdering Facility: [facility] Address: [address] [place] [address] Performed By: #### 2 4344-4 ####[facility] LABIA [id number] [place] [address] [place] Carboxyhemoglobin (BldV) [Mass fraction] 1.5 % Normal 0.0-2.0 [facility] Comment on above: Order Comment: Speci men Type: VENOUS BLOOD SPECIMENOrdering Facility: [facility] Address: [address] [place] [address] Result Comment: Carb oxyhemoglobin Reference Range for Smokers: 2.0-8.0% Performed By: #### 2 4344-4 ####[facility] LABIA [id number] [place] [address] [place] CO2 (BldV) [Partial pressure] 53 mm[Hg] Normal 42-55 [facility] Comment on above: Order Comment: Speci men Type: VENOUS BLOOD SPECIMENOrdering Facility: [facility] Address: [address] [place] [address] Performed By: #### 2 4344-4 ####[facility] LABIA [id number] [place] [address] [place] Glucose [Mass/Vol] 150 mg/dL High 60-105 [facility] Comment on above: Order Comment: Speci men Type: VENOUS BLOOD SPECIMENOrdering Facility: [facility] Address: [address] [place] [address] Performed By: #### 2 4344-4 ####[facility] LABCLIA [id number] [place] [address] [place] HCO3 (Bld) [Moles/Vol] 28 mmol/L Normal 24-28 [facility] Comment on above: Order Comment: Speci men Type: VENOUS BLOOD SPECIMENOrdering Facility: [facility] Address: [address] [place] [address] Performed By: #### 2 4344-4 ####[facility] LABCLIA [id number] [place] [address] [place] Hematocrit (Bld) [Volume fraction] 26.9 % Low 39.0-51.0 [facility] Comment on above: Order Comment: Speci men Type: VENOUS BLOOD SPECIMENOrdering Facility: [facility] Address: [address] [place] [address] Performed By: #### 2 4344-4 ####[facility] LABCLIA [id number] [place] [address] [place] Hemoglobin (Bld) [Mass/Vol] 8.7 g/dL Low 13.0-17.0 [facility] Comment on above: Order Comment: Speci men Type: VENOUS BLOOD SPECIMENOrdering Facility: [facility] Address: [address] [place] [address] Performed By: #### 2 4344-4 ####[facility] LABCLIA [id number] [place] [address] [place] Lactate [Moles/Vol] 1.5 mmol/L Normal 0.5-2.2 [facility] Comment on above: Order Comment: Speci men Type: VENOUS BLOOD SPECIMENOrdering Facility: [facility] Address: [address] [place] [address] Performed By: #### 2 4344-4 ####[facility] LABCLIA [id number] [place] [address] [place] LITERS 2 Liters/min Normal [facility] Comment on above: Order Comment: Speci men Type: VENOUS BLOOD SPECIMENOrdering Facility: [facility] Address: [address] [place] [address] Performed By: #### 2 4344-4 ####[facility] LABCLIA [id number] [address] [address] [place] Methemoglobin (Bld) [Mass fraction] 0.6 % Normal 0.0-1.5 [facility] Comment on above: Order Comment: Speci men Type: VENOUS BLOOD SPECIMENOrdering Facility: [facility] Address: [address] [address] Performed By: #### 2 4344-4 ####[facility] LABCLIA [id number] [address] [address] [place] O2 THERAPY NC = Nasal Cannula Normal [facility] Comment on above: Order Comment: Speci men Type: VENOUS BLOOD SPECIMENOrdering Facility: [facility] Address: [address] [address] Performed By: #### 2 4344-4 ####[facility] LABCLIA [id number] [place] [id number] [place] Oxygen (BldV) [Partial pressure] 35 mm[Hg] Normal 35-45 [facility] Comment on above: Order Comment: Speci men Type: VENOUS BLOOD SPECIMENOrdering Facility: [facility] Address: [address] [id number] Performed By: #### 2 4344-4 ####[facility] LABCLIA [id number] [address] [address] [place] Oxygen saturation in Venous blood 60 % Normal 60-85 [facility] Comment on above: Order Comment: Speci men Type: VENOUS BLOOD SPECIMENOrdering Facility: [facility] Address: [address] [id number] Performed By: #### 2 4344-4 ####[facility] LABCLIA [id number] [place] [address] [place] Oxyhemoglobin (BldV) [Mass fraction] 58 % Low 60-85 [facility] Comment on above: Order Comment: Speci men Type: VENOUS BLOOD SPECIMENOrdering Facility: [facility] Address: [address] [place] [address] Performed By: #### 2 4344-4 ####[facility] LABIA [id number] [place] [address] [place] pH (BldV) 7.34 [pH] Normal 7.32-7.42 [facility] Comment on above: Order Comment: Speci men Type: VENOUS BLOOD SPECIMENOrdering Facility: [facility] Address: [address] [place] [address] Performed By: #### 2 4344-4 ####[facility] LABCLIA [id number] [place] [address] [place] Potassium [Moles/Vol] 4.8 mmol/L Normal 3.5-5.0 [facility] Comment on above: Order Comment: Speci men Type: VENOUS BLOOD SPECIMENOrdering Facility: [facility] Address: [address] [place] [address] Performed By: #### 2 4344-4 ####[facility] LABIA [id number] [place] [address] [place] Sodium [Moles/Vol] 136 mmol/L Normal 136-144 [facility] Comment on above: Order Comment: Speci men Type: VENOUS BLOOD SPECIMENOrdering Facility: [facility] Address: [address] [place], [place] [address] Performed By: #### 2 4344-4 ####[facility] LABCLIA [id number] [place] [address] [place] Base excess Calc (BldV) [Moles/Vol] 2 mmol/L Normal 0-2 [facility] Comment on above: Order Comment: Speci men Type: VENOUS BLOOD SPECIMENOrdering Facility: [facility] Address: [address] [place] [address] Performed By: #### 2 4344-4 ####[facility] LABIA [id number] [place] [address] [place] Body temperature 98.6 [degF] Normal [facility] Comment on above: Order Comment: Speci men Type: VENOUS BLOOD SPECIMENOrdering Facility: [facility] Address: [address] [place] [address] Performed By: #### 2 4344-4 ####[facility] [id number] [place] [address] [place] Calcium.ionized (Bld) [Mass/Vol] 1.22 mmol/L Normal 1.08-1.30 [facility] Comment on above: Order Comment: Speci men Type: VENOUS BLOOD SPECIMENOrdering Facility: [facility] Address: [address] [place] [address] Performed By: #### 2 4344-4 ####[facility] [id number] [place] [address] [place] Calcium.ionized adjusted to pH 7.4 (BldA) [Moles/Vol] 1.18 mmol/L Normal 1.08-1.30 [facility] Comment on above: Order Comment: Speci men Type: VENOUS BLOOD SPECIMENOrdering Facility: [facility] Address: [address] [place] [address] Performed By: #### 2 4344-4 ####[facility] [id number] [place] [address] [place] Carboxyhemoglobin (BldV) [Mass fraction] 1.3 % Normal 0.0-2.0 [facility] Comment on above: Order Comment: Speci men Type: VENOUS BLOOD SPECIMENOrdering Facility: [facility] Address: [address] [place] [address] Result Comment: Carb oxyhemoglobin Reference Range for Smokers: 2.0-8.0% Performed By: #### 2 4344-4 ####[facility] LABCLIA [id number] [place] [address] [place] CO2 (BldV) [Partial pressure] 52 mm[Hg] Normal 42-55 [facility] Comment on above: Order Comment: Speci men Type: VENOUS BLOOD SPECIMENOrdering Facility: [facility] Address: [address] [place] [address] Performed By: #### 2 4344-4 ####[facility] LABCLIA [id number] [place] [address] [place] Glucose [Mass/Vol] 154 mg/dL High 60-105 [facility] Comment on above: Order Comment: Speci men Type: VENOUS BLOOD SPECIMENOrdering Facility: [facility] Address: [address] [place] [address] Performed By: #### 2 4344-4 ####[facility] LABCLIA [id number] [place] [address] [place] HCO3 (Bld) [Moles/Vol] 27 mmol/L Normal 24-28 [facility] Comment on above: Order Comment: Speci men Type: VENOUS BLOOD SPECIMENOrdering Facility: [facility] Address: [address] [place] [address] Performed By: #### 2 4344-4 ####[facility] LABCLIA [id number] [place] [address] [place] Hematocrit (Bld) [Volume fraction] 26.7 % Low 39.0-51.0 [facility] Comment on above: Order Comment: Speci men Type: VENOUS BLOOD SPECIMENOrdering Facility: [facility] Address: [address] [place] [address] Performed By: #### 2 4344-4 ####[facility] LABCLIA [id number] [place] [address] [place] Hemoglobin (Bld) [Mass/Vol] 8.6 g/dL Low 13.0-17.0 [facility] Comment on above: Order Comment: Speci men Type: VENOUS BLOOD SPECIMENOrdering Facility: [facility] Address: [address] [place] [address] Performed By: #### 2 4344-4 ####[facility] LABCLIA [id number] [place] [address] [place] Lactate [Moles/Vol] 1.3 mmol/L Normal 0.5-2.2 [facility] Comment on above: Order Comment: Speci men Type: VENOUS BLOOD SPECIMENOrdering Facility: [facility] Address: [address] [place] [address] Performed By: #### 2 4344-4 ####[facility] LABCLIA [id number] [place] [address] [place] LITERS 2 Liters/min Normal [facility] Comment on above: Order Comment: Speci men Type: VENOUS BLOOD SPECIMENOrdering Facility: [facility] Address: [address] [place] [address] Performed By: #### 2 4344-4 ####[facility] LABCLIA [id number] [place] [address] [place] Methemoglobin (Bld) [Mass fraction] 1.4 % Normal 0.0-1.5 [facility] Comment on above: Order Comment: Speci men Type: VENOUS BLOOD SPECIMENOrdering Facility: [facility] Address: [address] [place] [address] Performed By: #### 2 4344-4 ####[facility] LABCLIA [id number] [place] [address] [place] O2 THERAPY NC = Nasal Cannula Normal [facility] Comment on above: Order Comment: Speci men Type: VENOUS BLOOD SPECIMENOrdering Facility: [facility] Address: [address] [id number] Performed By: #### 2 4344-4 ####[facility] LABCLIA [id number] [address] [address] [place] Oxygen (BldV) [Partial pressure] 51 mm[Hg] High 35-45 [facility] Comment on above: Order Comment: Speci men Type: VENOUS BLOOD SPECIMENOrdering Facility: [facility] Address: [address] [place] [address] Performed By: #### 2 4344-4 ####[facility] LABCLIA [id number] [place] [address] [place] Oxygen saturation in Venous blood 85 % Normal 60-85 [facility] Comment on above: Order Comment: Speci men Type: VENOUS BLOOD SPECIMENOrdering Facility: [facility] Address: [address] [place] [address] Performed By: #### 2 4344-4 ####[facility] LABIA [id number] [place] [address] [place] Oxyhemoglobin (BldV) [Mass fraction] 83 % Normal 60-85 [facility] Comment on above: Order Comment: Speci men Type: VENOUS BLOOD SPECIMENOrdering Facility: [facility] Address: [address] [place], [place] [address] Performed By: #### 2 4344-4 ####[facility] LABIA [id number] [place] [address] [place] pH (BldV) 7.34 [pH] Normal 7.32-7.42 [facility] Comment on above: Order Comment: Speci men Type: VENOUS BLOOD SPECIMENOrdering Facility: [facility] Address: [address] [place], [place] [address] Performed By: #### 2 4344-4 ####[facility] LABIA [id number] [place] [id number] [place] Potassium [Moles/Vol] 4.6 mmol/L Normal 3.5-5.0 [facility] Comment on above: Order Comment: Speci men Type: VENOUS BLOOD SPECIMENOrdering Facility: [facility] Address: [address] [place] [address] Performed By: #### 2 4344-4 ####[facility] LABCLIA [id number] [place] [address] [place] Sodium [Moles/Vol] 135 mmol/L Low 136-144 [facility] Comment on above: Order Comment: Speci men Type: VENOUS BLOOD SPECIMENOrdering Facility: [facility] Address: [address] [place] [address] Performed By: #### 2 4344-4 ####[facility] LABCLIA [id number] [place] [address] [place] Base excess Calc (BldV) [Moles/Vol] 1 mmol/L Normal 0-2 [facility] Comment on above: Order Comment: Speci men Type: VENOUS BLOOD SPECIMENOrdering Facility: [facility] Address: [address] [place] [address] Performed By: #### 2 4344-4 ####[facility] LABIA [id number] [place] [address] [place] Body temperature 98.6 [degF] Normal [facility] Comment on above: Order Comment: Speci men Type: VENOUS BLOOD SPECIMENOrdering Facility: [facility] Address: [address] [place] [address] Performed By: #### 2 4344-4 ####[facility] LABIA [id number] [place] [address] [place] Calcium.ionized (Bld) [Mass/Vol] 1.19 mmol/L Normal 1.08-1.30 [facility] Comment on above: Order Comment: Speci men Type: VENOUS BLOOD SPECIMENOrdering Facility: [facility] Address: [address] [place] [address] Performed By: #### 2 4344-4 ####[facility] LABIA [id number] [place] [address] [place] Calcium.ionized adjusted to pH 7.4 (BldA) [Moles/Vol] 1.17 mmol/L Normal 1.08-1.30 [facility] Comment on above: Order Comment: Speci men Type: VENOUS BLOOD SPECIMENOrdering Facility: [facility] Address: [address] [place] [address] Performed By: #### 2 4344-4 ####[facility] LABIA [id number] [place] [address] [place] Carboxyhemoglobin (BldV) [Mass fraction] 1.5 % Normal 0.0-2.0 [facility] Comment on above: Order Comment: Speci men Type: VENOUS BLOOD SPECIMENOrdering Facility: [facility] Address: [address] [place] [address] Result Comment: Carb oxyhemoglobin Reference Range for Smokers: 2.0-8.0% Performed By: #### 2 4344-4 ####[facility] LABIA [id number] [place] [address] [place] CO2 (BldV) [Partial pressure] 47 mm[Hg] Normal 42-55 [facility] Comment on above: Order Comment: Speci men Type: VENOUS BLOOD SPECIMENOrdering Facility: [facility] Address: [address] [place] [address] Performed By: #### 2 4344-4 ####[facility] LABIA [id number] [place] [address] [place] Glucose [Mass/Vol] 150 mg/dL High 60-105 [facility] Comment on above: Order Comment: Speci men Type: VENOUS BLOOD SPECIMENOrdering Facility: [facility] Address: [address] [place] [address] Performed By: #### 2 4344-4 ####[facility] LABCLIA [id number] [place] [address] [place] HCO3 (Bld) [Moles/Vol] 26 mmol/L Normal 24-28 [facility] Comment on above: Order Comment: Speci men Type: VENOUS BLOOD SPECIMENOrdering Facility: [facility] Address: [address] [place] [address] Performed By: #### 2 4344-4 ####[facility] LABCLIA [id number] [place] [address] [place] Hematocrit (Bld) [Volume fraction] 27.1 % Low 39.0-51.0 [facility] Comment on above: Order Comment: Speci men Type: VENOUS BLOOD SPECIMENOrdering Facility: [facility] Address: [address] [place] [address] Performed By: #### 2 4344-4 ####[facility] LABCLIA [id number] [place] [address] [place] Hemoglobin (Bld) [Mass/Vol] 8.7 g/dL Low 13.0-17.0 [facility] Comment on above: Order Comment: Speci men Type: VENOUS BLOOD SPECIMENOrdering Facility: [facility] Address: [address] [place] [address] Performed By: #### 2 4344-4 ####[facility] LABCLIA [id number] [place] [address] [place] Lactate [Moles/Vol] 1.4 mmol/L Normal 0.5-2.2 [facility] Comment on above: Order Comment: Speci men Type: VENOUS BLOOD SPECIMENOrdering Facility: [facility] Address: [address] [place] [address] Performed By: #### 2 4344-4 ####[facility] LABCLIA [id number] [place] [address] [place] LITERS 2 Liters/min Normal [facility] Comment on above: Order Comment: Speci men Type: VENOUS BLOOD SPECIMENOrdering Facility: [facility] Address: [address] [place] [address] Performed By: #### 2 4344-4 ####[facility] LABCLIA [id number] [address] [address] [place] Methemoglobin (Bld) [Mass fraction] 0.8 % Normal 0.0-1.5 [facility] Comment on above: Order Comment: Speci men Type: VENOUS BLOOD SPECIMENOrdering Facility: [facility] Address: [address] [place] [address] Performed By: #### 2 4344-4 ####[facility] LABCLIA [id number] [place] [address] [place] O2 THERAPY NC = Nasal Cannula Normal [facility] Comment on above: Order Comment: Speci men Type: VENOUS BLOOD SPECIMENOrdering Facility: [facility] Address: [address] [place] [address] Performed By: #### 2 4344-4 ####[facility] LABCLIA [id number] [place] [address] [place] Oxygen (BldV) [Partial pressure] 41 mm[Hg] Normal 35-45 [facility] Comment on above: Order Comment: Speci men Type: VENOUS BLOOD SPECIMENOrdering Facility: [facility] Address: [address] [place] [address] Performed By: #### 2 4344-4 ####[facility] LABCLIA [id number] [place] [address] [place] Oxygen saturation in Venous blood 71 % Normal 60-85 [facility] Comment on above: Order Comment: Speci men Type: VENOUS BLOOD SPECIMENOrdering Facility: [facility] Address: [address] [id number] Performed By: #### 2 4344-4 ####[facility] LABCLIA [id number] [place] [address] [place] Oxyhemoglobin (BldV) [Mass fraction] 70 % Normal 60-85 [facility] Comment on above: Order Comment: Speci men Type: VENOUS BLOOD SPECIMENOrdering Facility: [facility] Address: [address] [place] [address] Performed By: #### 2 4344-4 ####[facility] LABCLIA [id number] [place] [address] [place] pH (BldV) 7.36 [pH] Normal 7.32-7.42 [facility] Comment on above: Order Comment: Speci men Type: VENOUS BLOOD SPECIMENOrdering Facility: [facility] Address: [address] [place] [address] Performed By: #### 2 4344-4 ####[facility] LABIA [id number] [place] [address] [place] Potassium [Moles/Vol] 4.8 mmol/L Normal 3.5-5.0 [facility] Comment on above: Order Comment: Speci men Type: VENOUS BLOOD SPECIMENOrdering Facility: [facility] Address: [address] [place] [address] Performed By: #### 2 4344-4 ####[facility] LABIA [id number] [place] [address] [place] Sodium [Moles/Vol] 135 mmol/L Low 136-144 [facility] Comment on above: Order Comment: Speci men Type: VENOUS BLOOD SPECIMENOrdering Facility: [facility] Address: [address] [place] [address] Performed By: #### 2 4344-4 ####[facility] LABCLIA [id number] [place] [address] [place] Base excess Calc (BldV) [Moles/Vol] 0 mmol/L Normal 0-2 [facility] Comment on above: Order Comment: Speci men Type: VENOUS BLOOD SPECIMENOrdering Facility: [facility] Address: [address] [place] [address] Performed By: #### 2 4344-4 ####[facility] LABIA [id number] [place] [address] [place] Body temperature 98.6 [degF] Normal [facility] Comment on above: Order Comment: Speci men Type: VENOUS BLOOD SPECIMENOrdering Facility: [facility] Address: [address] [place] [address] Performed By: #### 2 4344-4 ####[facility] [id number] [place] [address] [place] Calcium.ionized (Bld) [Mass/Vol] 1.19 mmol/L Normal 1.08-1.30 [facility] Comment on above: Order Comment: Speci men Type: VENOUS BLOOD SPECIMENOrdering Facility: [facility] Address: [address] [place] [address] Performed By: #### 2 4344-4 ####[facility] [id number] [place] [address] [place] Calcium.ionized adjusted to pH 7.4 (BldA) [Moles/Vol] 1.16 mmol/L Normal 1.08-1.30 [facility] Comment on above: Order Comment: Speci men Type: VENOUS BLOOD SPECIMENOrdering Facility: [facility] Address: [address] [place], [place] [address] Performed By: #### 2 4344-4 ####[facility] [id number] [place] [address] [place] Carboxyhemoglobin (BldV) [Mass fraction] 1.5 % Normal 0.0-2.0 [facility] Comment on above: Order Comment: Speci men Type: VENOUS BLOOD SPECIMENOrdering Facility: [facility] Address: [address] [place] [address] Result Comment: Carb oxyhemoglobin Reference Range for Smokers: 2.0-8.0% Performed By: #### 2 4344-4 ####[facility] LABCLIA [id number] [place] [address] [place] CO2 (BldV) [Partial pressure] 45 mm[Hg] Normal 42-55 [facility] Comment on above: Order Comment: Speci men Type: VENOUS BLOOD SPECIMENOrdering Facility: [facility] Address: [address] [place] [address] Performed By: #### 2 4344-4 ####[facility] LABCLIA [id number] [place] [address] [place] Glucose [Mass/Vol] 144 mg/dL High 60-105 [facility] Comment on above: Order Comment: Speci men Type: VENOUS BLOOD SPECIMENOrdering Facility: [facility] Address: [address] [place] [address] Performed By: #### 2 4344-4 ####[facility] LABCLIA [id number] [place] [address] [place] HCO3 (Bld) [Moles/Vol] 25 mmol/L Normal 24-28 [facility] Comment on above: Order Comment: Speci men Type: VENOUS BLOOD SPECIMENOrdering Facility: [facility] Address: [address] [place] [address] Performed By: #### 2 4344-4 ####[facility] LABCLIA [id number] [place] [address] [place] Hematocrit (Bld) [Volume fraction] 26.7 % Low 39.0-51.0 [facility] Comment on above: Order Comment: Speci men Type: VENOUS BLOOD SPECIMENOrdering Facility: [facility] Address: [address] [place] [address] Performed By: #### 2 4344-4 ####[facility] LABCLIA [id number] [place] [address] [place] Hemoglobin (Bld) [Mass/Vol] 8.6 g/dL Low 13.0-17.0 [facility] Comment on above: Order Comment: Speci men Type: VENOUS BLOOD SPECIMENOrdering Facility: [facility] Address: [address] [place] [address] Performed By: #### 2 4344-4 ####[facility] LABIA [id number] [place] [address] [place] Lactate [Moles/Vol] 1.4 mmol/L Normal 0.5-2.2 [facility] Comment on above: Order Comment: Speci men Type: VENOUS BLOOD SPECIMENOrdering Facility: [facility] Address: [address] [place] [address] Performed By: #### 2 4344-4 ####[facility] LABIA [id number] [place] [address] [place] Methemoglobin (Bld) [Mass fraction] 0.6 % Normal 0.0-1.5 [facility] Comment on above: Order Comment: Speci men Type: VENOUS BLOOD SPECIMENOrdering Facility: [facility] Address: [address] [place] [address] Performed By: #### 2 4344-4 ####[facility] LABIA [id number] [place] [address] [place] O2 THERAPY NC = Nasal Cannula Normal [facility] Comment on above: Order Comment: Speci men Type: VENOUS BLOOD SPECIMENOrdering Facility: [facility] Address: [address] [place], [place] [address] Performed By: #### 2 4344-4 ####[facility] LABIA [id number] [place] [address] [place] Oxygen (BldV) [Partial pressure] 39 mm[Hg] Normal 35-45 [facility] Comment on above: Order Comment: Speci men Type: VENOUS BLOOD SPECIMENOrdering Facility: [facility] Address: [address] [place] [address] Performed By: #### 2 4344-4 ####[facility] LABCLIA [id number] [address] [address] [place] Oxygen saturation in Venous blood 70 % Normal 60-85 [facility] Comment on above: Order Comment: Speci men Type: VENOUS BLOOD SPECIMENOrdering Facility: [facility] Address: [address] [place] [address] Performed By: #### 2 4344-4 ####[facility] LABCLIA [id number] [place] [address] [place] Oxyhemoglobin (BldV) [Mass fraction] 68 % Normal 60-85 [facility] Comment on above: Order Comment: Speci men Type: VENOUS BLOOD SPECIMENOrdering Facility: [facility] Address: [address] [place] [address] Performed By: #### 2 4344-4 ####[facility] LABIA [id number] [place] [address] [place] pH (BldV) 7.36 [pH] Normal 7.32-7.42 [facility] Comment on above: Order Comment: Speci men Type: VENOUS BLOOD SPECIMENOrdering Facility: [facility] Address: [address] [place], [place] [address] Performed By: #### 2 4344-4 ####[facility] LABCLIA [id number] [place] [id number] [place] Potassium [Moles/Vol] 4.7 mmol/L Normal 3.5-5.0 [facility] Comment on above: Order Comment: Speci men Type: VENOUS BLOOD SPECIMENOrdering Facility: [facility] Address: [address] [place], [place] [address] Performed By: #### 2 4344-4 ####[facility] LABCLIA [id number] [place] [address] [place] Sodium [Moles/Vol] 136 mmol/L Normal 136-144 [facility] Comment on above: Order Comment: Speci men Type: VENOUS BLOOD SPECIMENOrdering Facility: [facility] Address: [address] [place] [address] Performed By: #### 2 4344-4 ####[facility] LABIA [id number] [place] [address] [place] Base excess Calc (BldV) [Moles/Vol] 1 mmol/L Normal 0-2 [facility] Comment on above: Order Comment: Speci men Type: VENOUS BLOOD SPECIMENOrdering Facility: [facility] Address: [address] [place] [address] Performed By: #### 2 4344-4 ####[facility] LABIA [id number] [place] [address] [place] Calcium.ionized (Bld) [Mass/Vol] 1.20 mmol/L Normal 1.08-1.30 [facility] Comment on above: Order Comment: Speci men Type: VENOUS BLOOD SPECIMENOrdering Facility: [facility] Address: [address] [place] [address] Performed By: #### 2 4344-4 ####[facility] LABIA [id number] [place] [address] [place] Calcium.ionized adjusted to pH 7.4 (BldA) [Moles/Vol] 1.17 mmol/L Normal 1.08-1.30 [facility] Comment on above: Order Comment: Speci men Type: VENOUS BLOOD SPECIMENOrdering Facility: [facility] Address: [address] [place] [address] Performed By: #### 2 4344-4 ####[facility] LABCLIA [id number] [place] [address] [place] Carboxyhemoglobin (BldV) [Mass fraction] 1.5 % Normal 0.0-2.0 [facility] Comment on above: Order Comment: Speci men Type: VENOUS BLOOD SPECIMENOrdering Facility: [facility] Address: [address] [place] [address] Result Comment: Carb oxyhemoglobin Reference Range for Smokers: 2.0-8.0% Performed By: #### 2 4344-4 ####[facility] LABCLIA [id number] [place] [address] [place] CO2 (BldV) [Partial pressure] 48 mm[Hg] Normal 42-55 [facility] Comment on above: Order Comment: Speci men Type: VENOUS BLOOD SPECIMENOrdering Facility: [facility] Address: [address] [place] [address] Performed By: #### 2 4344-4 ####[facility] LABCLIA [id number] [place] [address] [place] HCO3 (Bld) [Moles/Vol] 26 mmol/L Normal 24-28 [facility] Comment on above: Order Comment: Speci men Type: VENOUS BLOOD SPECIMENOrdering Facility: [facility] Address: [address] [place] [address] Performed By: #### 2 4344-4 ####[facility] LABCLIA [id number] [place] [address] [place] Hematocrit (Bld) [Volume fraction] 27.0 % Low 39.0-51.0 [facility] Comment on above: Order Comment: Speci men Type: VENOUS BLOOD SPECIMENOrdering Facility: [facility] Address: [address] [place] [address] Performed By: #### 2 4344-4 ####[facility] LABCLIA [id number] [place] [address] [place] Hemoglobin (Bld) [Mass/Vol] 8.7 g/dL Low 13.0-17.0 [facility] Comment on above: Order Comment: Speci men Type: VENOUS BLOOD SPECIMENOrdering Facility: [facility] Address: [address] [id number] Performed By: #### 2 4344-4 ####[facility] LABCLIA [id number] [place] [address] [place] Lactate [Moles/Vol] 2.0 mmol/L Normal 0.5-2.2 [facility] Comment on above: Order Comment: Speci men Type: VENOUS BLOOD SPECIMENOrdering Facility: [facility] Address: [address] [place] [address] Performed By: #### 2 4344-4 ####[facility] LABCLIA [id number] [place] [address] [place] Methemoglobin (Bld) [Mass fraction] 0.4 % Normal 0.0-1.5 [facility] Comment on above: Order Comment: Speci men Type: VENOUS BLOOD SPECIMENOrdering Facility: [facility] Address: [address] [place] [address] Performed By: #### 2 4344-4 ####[facility] LABCLIA [id number] [place] [address] [place] Oxygen (BldV) [Partial pressure] 33 mm[Hg] Low 35-45 [facility] Comment on above: Order Comment: Speci men Type: VENOUS BLOOD SPECIMENOrdering Facility: [facility] Address: [address] [place] [address] Performed By: #### 2 4344-4 ####[facility] LABCLIA [id number] [place] [address] [place] Oxygen saturation in Venous blood 60 % Normal 60-85 [facility] Comment on above: Order Comment: Speci men Type: VENOUS BLOOD SPECIMENOrdering Facility: [facility] Address: [address] [place], [place] [address] Performed By: #### 2 4344-4 ####[facility] LABCLIA [id number] [place] [address] [place] Oxyhemoglobin (BldV) [Mass fraction] 59 % Low 60-85 [facility] Comment on above: Order Comment: Speci men Type: VENOUS BLOOD SPECIMENOrdering Facility: [facility] Address: [address] [place] [address] Performed By: #### 2 4344-4 ####[facility] LABCLIA [id number] [place] [address] [place] pH (BldV) 7.35 [pH] Normal 7.32-7.42 [facility] Comment on above: Order Comment: Speci men Type: VENOUS BLOOD SPECIMENOrdering Facility: [facility] Address: [address] [place] [address] Performed By: #### 2 4344-4 ####[facility] LABCLIA [id number] [place] [address] [place] Potassium [Moles/Vol] 4.9 mmol/L Normal 3.5-5.0 [facility] Comment on above: Order Comment: Speci men Type: VENOUS BLOOD SPECIMENOrdering Facility: [facility] Address: [address] [place] [address] Performed By: #### 2 4344-4 ####[facility] LABIA [id number] [place] [address] [place] Base excess Calc (BldV) [Moles/Vol] 1 mmol/L Normal 0-2 [facility] Comment on above: Order Comment: Speci men Type: VENOUS BLOOD SPECIMENOrdering Facility: [facility] Address: [address] [place] [address] Performed By: #### 2 4344-4 ####[facility] LABCLIA [id number] [place] [address] [place] Calcium.ionized (Bld) [Mass/Vol] 1.22 mmol/L Normal 1.08-1.30 [facility] Comment on above: Order Comment: Speci men Type: VENOUS BLOOD SPECIMENOrdering Facility: [facility] Address: [address] [place] [address] Performed By: #### 2 4344-4 ####[facility] LABIA [id number] [place] [address] [place] Calcium.ionized adjusted to pH 7.4 (BldA) [Moles/Vol] 1.18 mmol/L Normal 1.08-1.30 [facility] Comment on above: Order Comment: Speci men Type: VENOUS BLOOD SPECIMENOrdering Facility: [facility] Address: [address] [place] [address] Performed By: #### 2 4344-4 ####[facility] [id number] [place] [address] [place] Carboxyhemoglobin (BldV) [Mass fraction] 0.9 % Normal 0.0-2.0 [facility] Comment on above: Order Comment: Speci men Type: VENOUS BLOOD SPECIMENOrdering Facility: [facility] Address: [address] [place] [address] Result Comment: Carb oxyhemoglobin Reference Range for Smokers: 2.0-8.0% Performed By: #### 2 4344-4 ####[facility] [id number] [place] [address] [place] CO2 (BldV) [Partial pressure] 52 mm[Hg] Normal 42-55 [facility] Comment on above: Order Comment: Speci men Type: VENOUS BLOOD SPECIMENOrdering Facility: [facility] Address: [address] [place] [address] Performed By: #### 2 4344-4 ####[facility] LABIA [id number] [place] [address] [place] Glucose [Mass/Vol] 119 mg/dL High 60-105 [facility] Comment on above: Order Comment: Speci men Type: VENOUS BLOOD SPECIMENOrdering Facility: [facility] Address: [address] [place] [address] Performed By: #### 2 4344-4 ####[facility] LABCLIA [id number] [place] [address] [place] HCO3 (Bld) [Moles/Vol] 27 mmol/L Normal 24-28 [facility] Comment on above: Order Comment: Speci men Type: VENOUS BLOOD SPECIMENOrdering Facility: [facility] Address: [address] [place] [address] Performed By: #### 2 4344-4 ####[facility] LABCLIA [id number] [place] [address] [place] Lactate [Moles/Vol] 2.4 mmol/L High 0.5-2.2 [facility] Comment on above: Order Comment: Speci men Type: VENOUS BLOOD SPECIMENOrdering Facility: [facility] Address: [address] [place] [address] Performed By: #### 2 4344-4 ####[facility] LABCLIA [id number] [place] [address] [place] Methemoglobin (Bld) [Mass fraction] 1.0 % Normal 0.0-1.5 [facility] Comment on above: Order Comment: Speci men Type: VENOUS BLOOD SPECIMENOrdering Facility: [facility] Address: [address] [place] [address] Performed By: #### 2 4344-4 ####[facility] LABCLIA [id number] [place] [address] [place] Oxygen (BldV) [Partial pressure] 37 mm[Hg] Normal 35-45 [facility] Comment on above: Order Comment: Speci men Type: VENOUS BLOOD SPECIMENOrdering Facility: [facility] Address: [address] [place] [address] Performed By: #### 2 4344-4 ####[facility] LABCLIA [id number] [address] [address] [place] Oxygen saturation in Venous blood 66 % Normal 60-85 [facility] Comment on above: Order Comment: Speci men Type: VENOUS BLOOD SPECIMENOrdering Facility: [facility] Address: [address] [place] [address] Performed By: #### 2 4344-4 ####[facility] LABCLIA [id number] [place] [address] [place] Oxyhemoglobin (BldV) [Mass fraction] 65 % Normal 60-85 [facility] Comment on above: Order Comment: Speci men Type: VENOUS BLOOD SPECIMENOrdering Facility: [facility] Address: [address] [place] [address] Performed By: #### 2 4344-4 ####[facility] LABIA [id number] [place] [address] [place] pH (BldV) 7.33 [pH] Normal 7.32-7.42 [facility] Comment on above: Order Comment: Speci men Type: VENOUS BLOOD SPECIMENOrdering Facility: [facility] Address: [address] [place], [place] [address] Performed By: #### 2 4344-4 ####[facility] LABIA [id number] [place] [address] [place] Potassium [Moles/Vol] 4.8 mmol/L Normal 3.5-5.0 [facility] Comment on above: Order Comment: Speci men Type: VENOUS BLOOD SPECIMENOrdering Facility: [facility] Address: [address] [place] [address] Performed By: #### 2 4344-4 ####[facility] LABCLIA [id number] [place] [id number] [place] Sodium [Moles/Vol] 137 mmol/L Normal 136-144 [facility] Comment on above: Order Comment: Speci men Type: VENOUS BLOOD SPECIMENOrdering Facility: [facility] Address: [address] [place] [address] Performed By: #### 2 4344-4 ####[facility] [id number] [place] [address] [place] Base excess Calc (BldV) [Moles/Vol] 0 mmol/L Normal 0-2 [facility] Comment on above: Order Comment: Speci men Type: VENOUS BLOOD SPECIMENOrdering Facility: [facility] Address: [address] [place] [address] Performed By: #### 2 4344-4 ####[facility] [id number] [place] [address] [place] Calcium.ionized (Bld) [Mass/Vol] 1.22 mmol/L Normal 1.08-1.30 [facility] Comment on above: Order Comment: Speci men Type: VENOUS BLOOD SPECIMENOrdering Facility: [facility] Address: [address] [place] [address] Performed By: #### 2 4344-4 ####[facility] [id number] [place] [address] [place] Calcium.ionized adjusted to pH 7.4 (BldA) [Moles/Vol] 1.16 mmol/L Normal 1.08-1.30 [facility] Comment on above: Order Comment: Speci men Type: VENOUS BLOOD SPECIMENOrdering Facility: [facility] Address: [address] [place] [address] Performed By: #### 2 4344-4 ####[facility] [id number] [place] [address] [place] Carboxyhemoglobin (BldV) [Mass fraction] 1.5 % Normal 0.0-2.0 [facility] Comment on above: Order Comment: Speci men Type: VENOUS BLOOD SPECIMENOrdering Facility: [facility] Address: [address] [place] [address] Result Comment: Carb oxyhemoglobin Reference Range for Smokers: 2.0-8.0% Performed By: #### 2 4344-4 ####[facility] LABCLIA [id number] [place] [address] [place] CO2 (BldV) [Partial pressure] 55 mm[Hg] Normal 42-55 [facility] Comment on above: Order Comment: Speci men Type: VENOUS BLOOD SPECIMENOrdering Facility: [facility] Address: [address] [place] [address] Performed By: #### 2 4344-4 ####[facility] LABCLIA [id number] [place] [address] [place] Glucose [Mass/Vol] 131 mg/dL High 60-105 [facility] Comment on above: Order Comment: Speci men Type: VENOUS BLOOD SPECIMENOrdering Facility: [facility] Address: [address] [place] [address] Performed By: #### 2 4344-4 ####[facility] LABCLIA [id number] [place] [address] [place] HCO3 (Bld) [Moles/Vol] 27 mmol/L Normal 24-28 [facility] Comment on above: Order Comment: Speci men Type: VENOUS BLOOD SPECIMENOrdering Facility: [facility] Address: [address] [place] [address] Performed By: #### 2 4344-4 ####[facility] LABCLIA [id number] [place] [address] [place] Hematocrit (Bld) [Volume fraction] 27.0 % Low 39.0-51.0 [facility] Comment on above: Order Comment: Speci men Type: VENOUS BLOOD SPECIMENOrdering Facility: [facility] Address: [address] [place] [address] Performed By: #### 2 4344-4 ####[facility] LABCLIA [id number] [place] [address] [place] Hemoglobin (Bld) [Mass/Vol] 8.7 g/dL Low 13.0-17.0 [facility] Comment on above: Order Comment: Speci men Type: VENOUS BLOOD SPECIMENOrdering Facility: [facility] Address: [address] [place] [address] Performed By: #### 2 4344-4 ####[facility] LABCLIA [id number] [place] [address] [place] Lactate [Moles/Vol] 2.5 mmol/L High 0.5-2.2 [facility] Comment on above: Order Comment: Speci men Type: VENOUS BLOOD SPECIMENOrdering Facility: [facility] Address: [address] [place] [address] Performed By: #### 2 4344-4 ####[facility] LABCLIA [id number] [place] [address] [place] Methemoglobin (Bld) [Mass fraction] 0.5 % Normal 0.0-1.5 [facility] Comment on above: Order Comment: Speci men Type: VENOUS BLOOD SPECIMENOrdering Facility: [facility] Address: [address] [place] [address] Performed By: #### 2 4344-4 ####[facility] LABCLIA [id number] [place] [address] [place] Oxygen (BldV) [Partial pressure] 41 mm[Hg] Normal 35-45 [facility] Comment on above: Order Comment: Speci men Type: VENOUS BLOOD SPECIMENOrdering Facility: [facility] Address: [address] [place] [address] Performed By: #### 2 4344-4 ####[facility] LABCLIA [id number] [place] [address] [place] Oxygen saturation in Venous blood 69 % Normal 60-85 [facility] Comment on above: Order Comment: Speci men Type: VENOUS BLOOD SPECIMENOrdering Facility: [facility] Address: [address] [place], [place] [address] Performed By: #### 2 4344-4 ####[facility] LABCLIA [id number] [place] [address] [place] Oxyhemoglobin (BldV) [Mass fraction] 68 % Normal 60-85 [facility] Comment on above: Order Comment: Speci men Type: VENOUS BLOOD SPECIMENOrdering Facility: [facility] Address: [address] [place] [address] Performed By: #### 2 4344-4 ####[facility] LABCLIA [id number] [place] [address] [place] pH (BldV) 7.31 [pH] Low 7.32-7.42 [facility] Comment on above: Order Comment: Speci men Type: VENOUS BLOOD SPECIMENOrdering Facility: [facility] Address: [address] [place] [address] Performed By: #### 2 4344-4 ####[facility] LABCLIA [id number] [place] [address] [place] Sodium [Moles/Vol] 137 mmol/L Normal 136-144 [facility] Comment on above: Order Comment: Speci men Type: VENOUS BLOOD SPECIMENOrdering Facility: [facility] Address: [address] [place] [address] Performed By: #### 2 4344-4 ####[facility] LABCLIA [id number] [place] [address] [place] BASE DEFICIT, VENOUS -1 mmol/L Normal -2-0 [facility] Comment on above: Order Comment: Speci men Type: VENOUS BLOOD SPECIMENOrdering Facility: [facility] Address: [address] [place], [place] [address] Performed By: #### 2 4344-4 ####[facility] LABCLIA [id number] [place] [address] [place] Calcium.ionized (Bld) [Mass/Vol] 1.23 mmol/L Normal 1.08-1.30 [facility] Comment on above: Order Comment: Speci men Type: VENOUS BLOOD SPECIMENOrdering Facility: [facility] Address: [address] [place] [address] Performed By: #### 2 4344-4 ####[facility] LABIA [id number] [place] [address] [place] Calcium.ionized adjusted to pH 7.4 (BldA) [Moles/Vol] 1.16 mmol/L Normal 1.08-1.30 [facility] Comment on above: Order Comment: Speci men Type: VENOUS BLOOD SPECIMENOrdering Facility: [facility] Address: [address] [place] [address] Performed By: #### 2 4344-4 ####[facility] [id number] [place] [address] [place] Carboxyhemoglobin (BldV) [Mass fraction] 1.7 % Normal 0.0-2.0 [facility] Comment on above: Order Comment: Speci men Type: VENOUS BLOOD SPECIMENOrdering Facility: [facility] Address: [address] [place] [address] Result Comment: Carb oxyhemoglobin Reference Range for Smokers: 2.0-8.0% Performed By: #### 2 4344-4 ####[facility] LABIA [id number] [place] [address] [place] CO2 (BldV) [Partial pressure] 52 mm[Hg] Normal 42-55 [facility] Comment on above: Order Comment: Speci men Type: VENOUS BLOOD SPECIMENOrdering Facility: [facility] Address: [address] [place] [address] Performed By: #### 2 4344-4 ####[facility] LABIA [id number] [place] [id number] [place] Glucose [Mass/Vol] 178 mg/dL High 60-105 [facility] Comment on above: Order Comment: Speci men Type: VENOUS BLOOD SPECIMENOrdering Facility: [facility] Address: [address] [place] [address] Performed By: #### 2 4344-4 ####[facility] LABCLIA [id number] [place] [address] [place] HCO3 (Bld) [Moles/Vol] 25 mmol/L Normal 24-28 [facility] Comment on above: Order Comment: Speci men Type: VENOUS BLOOD SPECIMENOrdering Facility: [facility] Address: [address] [place] [address] Performed By: #### 2 4344-4 ####[facility] LABCLIA [id number] [place] [address] [place] Hematocrit (Bld) [Volume fraction] 26.6 % Low 39.0-51.0 [facility] Comment on above: Order Comment: Speci men Type: VENOUS BLOOD SPECIMENOrdering Facility: [facility] Address: [address] [place] [address] Performed By: #### 2 4344-4 ####[facility] LABCLIA [id number] [place] [address] [place] Hemoglobin (Bld) [Mass/Vol] 8.6 g/dL Low 13.0-17.0 [facility] Comment on above: Order Comment: Speci men Type: VENOUS BLOOD SPECIMENOrdering Facility: [facility] Address: [address] [place] [address] Performed By: #### 2 4344-4 ####[facility] LABCLIA [id number] [place] [address] [place] Lactate [Moles/Vol] 3.8 mmol/L High 0.5-2.2 [facility] Comment on above: Order Comment: Speci men Type: VENOUS BLOOD SPECIMENOrdering Facility: [facility] Address: [address] [place] [address] Performed By: #### 2 4344-4 ####[facility] LABCLIA [id number] [address] [address] [place] Methemoglobin (Bld) [Mass fraction] 1.0 % Normal 0.0-1.5 [facility] Comment on above: Order Comment: Speci men Type: VENOUS BLOOD SPECIMENOrdering Facility: [facility] Address: [address] [place], [place] [address] Performed By: #### 2 4344-4 ####[facility] LABIA [id number] [address] [address] [place] Oxygen (BldV) [Partial pressure] 41 mm[Hg] Normal 35-45 [facility] Comment on above: Order Comment: Speci men Type: VENOUS BLOOD SPECIMENOrdering Facility: [facility] Address: [address] [place] [address] Performed By: #### 2 4344-4 ####[facility] LABCLIA [id number] [address] [address] [place] Oxygen saturation in Venous blood 69 % Normal 60-85 [facility] Comment on above: Order Comment: Speci men Type: VENOUS BLOOD SPECIMENOrdering Facility: [facility] Address: [address] [place] [address] Performed By: #### 2 4344-4 ####[facility] LABCLIA [id number] [address] [address] [place] Oxyhemoglobin (BldV) [Mass fraction] 67 % Normal 60-85 [facility] Comment on above: Order Comment: Speci men Type: VENOUS BLOOD SPECIMENOrdering Facility: [facility] Address: [address] [place] [address] Performed By: #### 2 4344-4 ####[facility] LABCLIA [id number] [place] [address] [place] pH (BldV) 7.30 [pH] Low 7.32-7.42 [facility] Comment on above: Order Comment: Speci men Type: VENOUS BLOOD SPECIMENOrdering Facility: [facility] Address: [address] [place] [address] Performed By: #### 2 4344-4 ####[facility] LABIA [id number] [place] [address] [place] Potassium [Moles/Vol] 4.7 mmol/L Normal 3.5-5.0 [facility] Comment on above: Order Comment: Speci men Type: VENOUS BLOOD SPECIMENOrdering Facility: [facility] Address: [address] [place] [address] Performed By: #### 2 4344-4 ####[facility] LABIA [id number] [place] [address] [place] BASE DEFICIT, VENOUS -2 mmol/L Normal -2-0 [facility] Comment on above: Order Comment: Speci men Type: VENOUS BLOOD SPECIMENOrdering Facility: [facility] Address: [address] [place] [address] Performed By: #### 2 4344-4 ####[facility] LABIA [id number] [place] [address] [place] Calcium.ionized (Bld) [Mass/Vol] 1.21 mmol/L Normal 1.08-1.30 [facility] Comment on above: Order Comment: Speci men Type: VENOUS BLOOD SPECIMENOrdering Facility: [facility] Address: [address] [place] [address] Performed By: #### 2 4344-4 ####[facility] LABIA [id number] [place] [address] [place] Calcium.ionized adjusted to pH 7.4 (BldA) [Moles/Vol] 1.15 mmol/L Normal 1.08-1.30 [facility] Comment on above: Order Comment: Speci men Type: VENOUS BLOOD SPECIMENOrdering Facility: [facility] Address: [address] [place] [address] Performed By: #### 2 4344-4 ####[facility] LABCLIA [id number] [place] [address] [place] Carboxyhemoglobin (BldV) [Mass fraction] 1.0 % Normal 0.0-2.0 [facility] Comment on above: Order Comment: Speci men Type: VENOUS BLOOD SPECIMENOrdering Facility: [facility] Address: [address] [place] [address] Result Comment: Carb oxyhemoglobin Reference Range for Smokers: 2.0-8.0% Performed By: #### 2 4344-4 ####[facility] LABCLIA [id number] [place] [address] [place] CO2 (BldV) [Partial pressure] 50 mm[Hg] Normal 42-55 [facility] Comment on above: Order Comment: Speci men Type: VENOUS BLOOD SPECIMENOrdering Facility: [facility] Address: [address] [place] [address] Performed By: #### 2 4344-4 ####[facility] LABCLIA [id number] [place] [address] [place] Glucose [Mass/Vol] 169 mg/dL High 60-105 [facility] Comment on above: Order Comment: Speci men Type: VENOUS BLOOD SPECIMENOrdering Facility: [facility] Address: [address] [place] [address] Performed By: #### 2 4344-4 ####[facility] LABCLIA [id number] [place] [address] [place] HCO3 (Bld) [Moles/Vol] 24 mmol/L Normal 24-28 [facility] Comment on above: Order Comment: Speci men Type: VENOUS BLOOD SPECIMENOrdering Facility: [facility] Address: [address] [place] [address] Performed By: #### 2 4344-4 ####[facility] LABCLIA [id number] [place] [address] [place] Hematocrit (Bld) [Volume fraction] 28.3 % Low 39.0-51.0 [facility] Comment on above: Order Comment: Speci men Type: VENOUS BLOOD SPECIMENOrdering Facility: [facility] Address: [address] [place] [address] Performed By: #### 2 4344-4 ####[facility] LABCLIA [id number] [place] [address] [place] Hemoglobin (Bld) [Mass/Vol] 9.1 g/dL Low 13.0-17.0 [facility] Comment on above: Order Comment: Speci men Type: VENOUS BLOOD SPECIMENOrdering Facility: [facility] Address: [address] [place] [address] Performed By: #### 2 4344-4 ####[facility] LABCLIA [id number] [place] [address] [place] Lactate [Moles/Vol] 4.8 mmol/L High 0.5-2.2 [facility] Comment on above: Order Comment: Speci men Type: VENOUS BLOOD SPECIMENOrdering Facility: [facility] Address: [address] [place] [address] Performed By: #### 2 4344-4 ####[facility] LABCLIA [id number] [place] [address] [place] Methemoglobin (Bld) [Mass fraction] 0.9 % Normal 0.0-1.5 [facility] Comment on above: Order Comment: Speci men Type: VENOUS BLOOD SPECIMENOrdering Facility: [facility] Address: [address] [place] [address] Performed By: #### 2 4344-4 ####[facility] LABCLIA [id number] [address] [address] [place] Oxygen (BldV) [Partial pressure] 40 mm[Hg] Normal 35-45 [facility] Comment on above: Order Comment: Speci men Type: VENOUS BLOOD SPECIMENOrdering Facility: [facility] Address: [address] [place], [place] [address] Performed By: #### 2 4344-4 ####[facility] LABIA [id number] [place] [address] [place] Oxygen saturation in Venous blood 69 % Normal 60-85 [facility] Comment on above: Order Comment: Speci men Type: VENOUS BLOOD SPECIMENOrdering Facility: [facility] Address: [address] [place], [place] [address] Performed By: #### 2 4344-4 ####[facility] LABIA [id number] [place] [address] [place] Oxyhemoglobin (BldV) [Mass fraction] 68 % Normal 60-85 [facility] Comment on above: Order Comment: Speci men Type: VENOUS BLOOD SPECIMENOrdering Facility: [facility] Address: [address] [place] [address] Performed By: #### 2 4344-4 ####[facility] LABIA [id number] [place] [id number] [place] pH (BldV) 7.30 [pH] Low 7.32-7.42 [facility] Comment on above: Order Comment: Speci men Type: VENOUS BLOOD SPECIMENOrdering Facility: [facility] Address: [address] [place] [address] Performed By: #### 2 4344-4 ####[facility] LABIA [id number] [address] [address] [place] Sodium [Moles/Vol] 139 mmol/L Normal 136-144 [facility] Comment on above: Order Comment: Speci men Type: VENOUS BLOOD SPECIMENOrdering Facility: [facility] Address: [address] [place] [address] Performed By: #### 2 4344-4 ####[facility] LABIA [id number] [place] [address] [place] BASE DEFICIT, VENOUS -2 mmol/L Normal -2-0 [facility] Comment on above: Order Comment: Speci men Type: VENOUS BLOOD SPECIMENOrdering Facility: [facility] Address: [address] [place] [address] Performed By: #### 2 4344-4 ####[facility] LABIA [id number] [place] [address] [place] Calcium.ionized (Bld) [Mass/Vol] 1.24 mmol/L Normal 1.08-1.30 [facility] Comment on above: Order Comment: Speci men Type: VENOUS BLOOD SPECIMENOrdering Facility: [facility] Address: [address] [place] [address] Performed By: #### 2 4344-4 ####[facility] LABIA [id number] [place] [address] [place] Calcium.ionized adjusted to pH 7.4 (BldA) [Moles/Vol] 1.19 mmol/L Normal 1.08-1.30 [facility] Comment on above: Order Comment: Speci men Type: VENOUS BLOOD SPECIMENOrdering Facility: [facility] Address: [address] [place] [address] Performed By: #### 2 4344-4 ####[facility] LABIA [id number] [place] [address] [place] Carboxyhemoglobin (BldV) [Mass fraction] 1.2 % Normal 0.0-2.0 [facility] Comment on above: Order Comment: Speci men Type: VENOUS BLOOD SPECIMENOrdering Facility: [facility] Address: [address] [place] [address] Result Comment: Carb oxyhemoglobin Reference Range for Smokers: 2.0-8.0% Performed By: #### 2 4344-4 ####[facility] LABCLIA [id number] [place] [address] [place] CO2 (BldV) [Partial pressure] 48 mm[Hg] Normal 42-55 [facility] Comment on above: Order Comment: Speci men Type: VENOUS BLOOD SPECIMENOrdering Facility: [facility] Address: [address] [place] [address] Performed By: #### 2 4344-4 ####[facility] LABCLIA [id number] [place] [address] [place] Glucose [Mass/Vol] 168 mg/dL High 60-105 [facility] Comment on above: Order Comment: Speci men Type: VENOUS BLOOD SPECIMENOrdering Facility: [facility] Address: [address] [place] [address] Performed By: #### 2 4344-4 ####[facility] LABCLIA [id number] [place] [address] [place] HCO3 (Bld) [Moles/Vol] 24 mmol/L Normal 24-28 [facility] Comment on above: Order Comment: Speci men Type: VENOUS BLOOD SPECIMENOrdering Facility: [facility] Address: [address] [place] [address] Performed By: #### 2 4344-4 ####[facility] LABCLIA [id number] [place] [address] [place] Hematocrit (Bld) [Volume fraction] 30.2 % Low 39.0-51.0 [facility] Comment on above: Order Comment: Speci men Type: VENOUS BLOOD SPECIMENOrdering Facility: [facility] Address: [address] [place] [address] Performed By: #### 2 4344-4 ####[facility] LABCLIA [id number] [place] [address] [place] Lactate [Moles/Vol] 4.7 mmol/L High 0.5-2.2 [facility] Comment on above: Order Comment: Speci men Type: VENOUS BLOOD SPECIMENOrdering Facility: [facility] Address: [address] [place] [address] Performed By: #### 2 4344-4 ####[facility] LABCLIA [id number] [place] [address] [place] Methemoglobin (Bld) [Mass fraction] 0.7 % Normal 0.0-1.5 [facility] Comment on above: Order Comment: Speci men Type: VENOUS BLOOD SPECIMENOrdering Facility: [facility] Address: [address] [place] [address] Performed By: #### 2 4344-4 ####[facility] LABCLIA [id number] [place] [address] [place] Oxygen (BldV) [Partial pressure] 43 mm[Hg] Normal 35-45 [facility] Comment on above: Order Comment: Speci men Type: VENOUS BLOOD SPECIMENOrdering Facility: [facility] Address: [address] [place] [address] Performed By: #### 2 4344-4 ####[facility] LABCLIA [id number] [place] [address] [place] Oxygen saturation in Venous blood 74 % Normal 60-85 [facility] Comment on above: Order Comment: Speci men Type: VENOUS BLOOD SPECIMENOrdering Facility: [facility] Address: [address] [place], [place] [address] Performed By: #### 2 4344-4 ####[facility] LABCLIA [id number] [place] [address] [place] Oxyhemoglobin (BldV) [Mass fraction] 72 % Normal 60-85 [facility] Comment on above: Order Comment: Speci men Type: VENOUS BLOOD SPECIMENOrdering Facility: [facility] Address: [address] [place] [address] Performed By: #### 2 4344-4 ####[facility] LABCLIA [id number] [place] [address] [place] pH (BldV) 7.32 [pH] Normal 7.32-7.42 [facility] Comment on above: Order Comment: Speci men Type: VENOUS BLOOD SPECIMENOrdering Facility: [facility] Address: [address] [place] [address] Performed By: #### 2 4344-4 ####[facility] LABCLIA [id number] [place] [address] [place] Potassium [Moles/Vol] 4.9 mmol/L Normal 3.5-5.0 [facility] Comment on above: Order Comment: Speci men Type: VENOUS BLOOD SPECIMENOrdering Facility: [facility] Address: [address] [place] [address] Performed By: #### 2 4344-4 ####[facility] LABIA [id number] [place] [address] [place] Sodium [Moles/Vol] 140 mmol/L Normal 136-144 [facility] Comment on above: Order Comment: Speci men Type: VENOUS BLOOD SPECIMENOrdering Facility: [facility] Address: [address] [place] [address] Performed By: #### 2 4344-4 ####[facility] LABCLIA [id number] [place] [address] [place] BASE DEFICIT, VENOUS -3 mmol/L Low -2-0 [facility] Comment on above: Order Comment: Speci men Type: VENOUS BLOOD SPECIMENOrdering Facility: [facility] Address: [address] [place] [address] Performed By: #### 2 4344-4 ####[facility] LABCLIA [id number] [place] [address] [place] Calcium.ionized adjusted to pH 7.4 (BldA) [Moles/Vol] 1.18 mmol/L Normal 1.08-1.30 [facility] Comment on above: Order Comment: Speci men Type: VENOUS BLOOD SPECIMENOrdering Facility: [facility] Address: [address] [place] [address] Performed By: #### 2 4344-4 ####[facility] LABIA [id number] [place] [address] [place] Carboxyhemoglobin (BldV) [Mass fraction] 1.3 % Normal 0.0-2.0 [facility] Comment on above: Order Comment: Speci men Type: VENOUS BLOOD SPECIMENOrdering Facility: [facility] Address: [address] [place] [address] Result Comment: Carb oxyhemoglobin Reference Range for Smokers: 2.0-8.0% Performed By: #### 2 4344-4 ####[facility] LABIA [id number] [place] [address] [place] CO2 (BldV) [Partial pressure] 47 mm[Hg] Normal 42-55 [facility] Comment on above: Order Comment: Speci men Type: VENOUS BLOOD SPECIMENOrdering Facility: [facility] Address: [address] [place] [address] Performed By: #### 2 4344-4 ####[facility] LABIA [id number] [place] [address] [place] Glucose [Mass/Vol] 121 mg/dL High 60-105 [facility] Comment on above: Order Comment: Speci men Type: VENOUS BLOOD SPECIMENOrdering Facility: [facility] Address: [address] [place] [address] Performed By: #### 2 4344-4 ####[facility] LABIA [id number] [place] [address] [place] HCO3 (Bld) [Moles/Vol] 23 mmol/L Low 24-28 [facility] Comment on above: Order Comment: Speci men Type: VENOUS BLOOD SPECIMENOrdering Facility: [facility] Address: [address] [place] [address] Performed By: #### 2 4344-4 ####[facility] LABCLIA [id number] [place] [address] [place] Hematocrit (Bld) [Volume fraction] 30.9 % Low 39.0-51.0 [facility] Comment on above: Order Comment: Speci men Type: VENOUS BLOOD SPECIMENOrdering Facility: [facility] Address: [address] [place] [address] Performed By: #### 2 4344-4 ####[facility] LABCLIA [id number] [place] [address] [place] Hemoglobin (Bld) [Mass/Vol] 10.0 g/dL Low 13.0-17.0 [facility] Comment on above: Order Comment: Speci men Type: VENOUS BLOOD SPECIMENOrdering Facility: [facility] Address: [address] [place] [address] Performed By: #### 2 4344-4 ####[facility] LABCLIA [id number] [place] [address] [place] Lactate [Moles/Vol] 7.0 mmol/L High 0.5-2.2 [facility] Comment on above: Order Comment: Speci men Type: VENOUS BLOOD SPECIMENOrdering Facility: [facility] Address: [address] [place] [address] Performed By: #### 2 4344-4 ####[facility] LABCLIA [id number] [place] [address] [place] Methemoglobin (Bld) [Mass fraction] 1.5 % Normal 0.0-1.5 [facility] Comment on above: Order Comment: Speci men Type: VENOUS BLOOD SPECIMENOrdering Facility: [facility] Address: [address] [place] [id number] Performed By: #### 2 4344-4 ####[facility] LABCLIA [id number] [address] [address] [place] Oxygen (BldV) [Partial pressure] 41 mm[Hg] Normal 35-45 [facility] Comment on above: Order Comment: Speci men Type: VENOUS BLOOD SPECIMENOrdering Facility: [facility] Address: [address] [place] [address] Performed By: #### 2 4344-4 ####[facility] LABCLIA [id number] [place] [address] [place] Oxygen saturation in Venous blood 70 % Normal 60-85 [facility] Comment on above: Order Comment: Speci men Type: VENOUS BLOOD SPECIMENOrdering Facility: [facility] Address: [address] [place] [address] Performed By: #### 2 4344-4 ####[facility] LABCLIA [id number] [place] [address] [place] Oxyhemoglobin (BldV) [Mass fraction] 68 % Normal 60-85 [facility] Comment on above: Order Comment: Speci men Type: VENOUS BLOOD SPECIMENOrdering Facility: [facility] Address: [address] [place] [address] Performed By: #### 2 4344-4 ####[facility] LABCLIA [id number] [place] [id number] [place] pH (BldV) 7.31 [pH] Low 7.32-7.42 [facility] Comment on above: Order Comment: Speci men Type: VENOUS BLOOD SPECIMENOrdering Facility: [facility] Address: [address] [place], [place] [address] Performed By: #### 2 4344-4 ####[facility] LABCLIA [id number] [place] [id number] [place] Potassium [Moles/Vol] 4.3 mmol/L Normal 3.5-5.0 [facility] Comment on above: Order Comment: Speci men Type: VENOUS BLOOD SPECIMENOrdering Facility: [facility] Address: [address] [place] [address] Performed By: #### 2 4344-4 ####[facility] LABCLIA [id number] [place] [address] [place] BASE DEFICIT, VENOUS -5 mmol/L Low -2-0 [facility] Comment on above: Order Comment: Speci men Type: VENOUS BLOOD SPECIMENOrdering Facility: [facility] Address: [address] [place] [address] Performed By: #### 2 4344-4 ####[facility] LABIA [id number] [place] [address] [place] Calcium.ionized (Bld) [Mass/Vol] 1.26 mmol/L Normal 1.08-1.30 [facility] Comment on above: Order Comment: Speci men Type: VENOUS BLOOD SPECIMENOrdering Facility: [facility] Address: [address] [place] [address] Performed By: #### 2 4344-4 ####[facility] LABIA [id number] [place] [address] [place] Calcium.ionized adjusted to pH 7.4 (BldA) [Moles/Vol] 1.16 mmol/L Normal 1.08-1.30 [facility] Comment on above: Order Comment: Speci men Type: VENOUS BLOOD SPECIMENOrdering Facility: [facility] Address: [address] [place] [address] Performed By: #### 2 4344-4 ####[facility] LABCLIA [id number] [place] [address] [place] Carboxyhemoglobin (BldV) [Mass fraction] 1.3 % Normal 0.0-2.0 [facility] Comment on above: Order Comment: Speci men Type: VENOUS BLOOD SPECIMENOrdering Facility: [facility] Address: [address] [place] [address] Result Comment: Carb oxyhemoglobin Reference Range for Smokers: 2.0-8.0% Performed By: #### 2 4344-4 ####[facility] LABCLIA [id number] [place] [address] [place] CO2 (BldV) [Partial pressure] 50 mm[Hg] Normal 42-55 [facility] Comment on above: Order Comment: Speci men Type: VENOUS BLOOD SPECIMENOrdering Facility: [facility] Address: [address] [place] [address] Performed By: #### 2 4344-4 ####[facility] LABCLIA [id number] [place] [address] [place] Glucose [Mass/Vol] 123 mg/dL High 60-105 [facility] Comment on above: Order Comment: Speci men Type: VENOUS BLOOD SPECIMENOrdering Facility: [facility] Address: [address] [place] [address] Performed By: #### 2 4344-4 ####[facility] LABCLIA [id number] [place] [address] [place] HCO3 (Bld) [Moles/Vol] 22 mmol/L Low 24-28 [facility] Comment on above: Order Comment: Speci men Type: VENOUS BLOOD SPECIMENOrdering Facility: [facility] Address: [address] [place] [address] Performed By: #### 2 4344-4 ####[facility] LABCLIA [id number] [place] [address] [place] Hematocrit (Bld) [Volume fraction] 28.5 % Low 39.0-51.0 [facility] Comment on above: Order Comment: Speci men Type: VENOUS BLOOD SPECIMENOrdering Facility: [facility] Address: [address] [place] [address] Performed By: #### 2 4344-4 ####[facility] LABCLIA [id number] [place] [address] [place] Hemoglobin (Bld) [Mass/Vol] 9.2 g/dL Low 13.0-17.0 [facility] Comment on above: Order Comment: Speci men Type: VENOUS BLOOD SPECIMENOrdering Facility: [facility] Address: [address] [place] [address] Performed By: #### 2 4344-4 ####[facility] LABIA [id number] [place] [address] [place] Lactate [Moles/Vol] 8.3 mmol/L High 0.5-2.2 [facility] Comment on above: Order Comment: Speci men Type: VENOUS BLOOD SPECIMENOrdering Facility: [facility] Address: [address] [place] [address] Performed By: #### 2 4344-4 ####[facility] LABIA [id number] [place] [address] [place] Methemoglobin (Bld) [Mass fraction] 1.1 % Normal 0.0-1.5 [facility] Comment on above: Order Comment: Speci men Type: VENOUS BLOOD SPECIMENOrdering Facility: [facility] Address: [address] [place] [address] Performed By: #### 2 4344-4 ####[facility] LABIA [id number] [place] [id number] [place] Oxygen (BldV) [Partial pressure] 43 mm[Hg] Normal 35-45 [facility] Comment on above: Order Comment: Speci men Type: VENOUS BLOOD SPECIMENOrdering Facility: [facility] Address: [address] [place], [place] [address] Performed By: #### 2 4344-4 ####[facility] LABIA [id number] [id number] [address] [place] Oxygen saturation in Venous blood 68 % Normal 60-85 [facility] Comment on above: Order Comment: Speci men Type: VENOUS BLOOD SPECIMENOrdering Facility: [facility] Address: [address] [place] [address] Performed By: #### 2 4344-4 ####[facility] LABCLIA [id number] [address] [address] [place] Oxyhemoglobin (BldV) [Mass fraction] 66 % Normal 60-85 [facility] Comment on above: Order Comment: Speci men Type: VENOUS BLOOD SPECIMENOrdering Facility: [facility] Address: [address] [place] [address] Performed By: #### 2 4344-4 ####[facility] LABCLIA [id number] [place] [address] [place] PEEP/CPAP 8 cmH2O Normal [facility] Comment on above: Order Comment: Speci men Type: VENOUS BLOOD SPECIMENOrdering Facility: [facility] Address: [address] [place], [place] [address] Performed By: #### 2 4344-4 ####[facility] LABCLIA [id number] [place] [address] [place] pH (BldV) 7.26 [pH] Low 7.32-7.42 [facility] Comment on above: Order Comment: Speci men Type: VENOUS BLOOD SPECIMENOrdering Facility: [facility] Address: [address] [place], [place] [address] Performed By: #### 2 4344-4 ####[facility] LABCLIA [id number] [place] [address] [place] Sodium [Moles/Vol] 141 mmol/L Normal 136-144 [facility] Comment on above: Order Comment: Speci men Type: VENOUS BLOOD SPECIMENOrdering Facility: [facility] Address: [address] [place], [place] [address] Performed By: #### 2 4344-4 ####[facility] LABCLIA [id number] [place] [address] [place] BASE DEFICIT, VENOUS -6 mmol/L Low -2-0 [facility] Comment on above: Order Comment: Speci men Type: VENOUS BLOOD SPECIMENOrdering Facility: [facility] Address: [address] [place] [address] Performed By: #### 2 4344-4 ####[facility] LABIA [id number] [place] [address] [place] Calcium.ionized (Bld) [Mass/Vol] 1.23 mmol/L Normal 1.08-1.30 [facility] Comment on above: Order Comment: Speci men Type: VENOUS BLOOD SPECIMENOrdering Facility: [facility] Address: [address] [place] [address] Performed By: #### 2 4344-4 ####[facility] LABIA [id number] [place] [address] [place] Calcium.ionized adjusted to pH 7.4 (BldA) [Moles/Vol] 1.13 mmol/L Normal 1.08-1.30 [facility] Comment on above: Order Comment: Speci men Type: VENOUS BLOOD SPECIMENOrdering Facility: [facility] Address: [address] [place] [address] Performed By: #### 2 4344-4 ####[facility] LABIA [id number] [place] [address] [place] Carboxyhemoglobin (BldV) [Mass fraction] 1.4 % Normal 0.0-2.0 [facility] Comment on above: Order Comment: Speci men Type: VENOUS BLOOD SPECIMENOrdering Facility: [facility] Address: [address] [place] [address] Result Comment: Carb oxyhemoglobin Reference Range for Smokers: 2.0-8.0% Performed By: #### 2 4344-4 ####[facility] LABCLIA [id number] [place] [address] [place] CO2 (BldV) [Partial pressure] 50 mm[Hg] Normal 42-55 [facility] Comment on above: Order Comment: Speci men Type: VENOUS BLOOD SPECIMENOrdering Facility: [facility] Address: [address] [place] [address] Performed By: #### 2 4344-4 ####[facility] LABCLIA [id number] [place] [address] [place] HCO3 (Bld) [Moles/Vol] 21 mmol/L Low 24-28 [facility] Comment on above: Order Comment: Speci men Type: VENOUS BLOOD SPECIMENOrdering Facility: [facility] Address: [address] [place] [address] Performed By: #### 2 4344-4 ####[facility] LABCLIA [id number] [place] [address] [place] Hematocrit (Bld) [Volume fraction] 30.5 % Low 39.0-51.0 [facility] Comment on above: Order Comment: Speci men Type: VENOUS BLOOD SPECIMENOrdering Facility: [facility] Address: [address] [place] [address] Performed By: #### 2 4344-4 ####[facility] LABCLIA [id number] [place] [address] [place] Hemoglobin (Bld) [Mass/Vol] 9.9 g/dL Low 13.0-17.0 [facility] Comment on above: Order Comment: Speci men Type: VENOUS BLOOD SPECIMENOrdering Facility: [facility] Address: [address] [place] [address] Performed By: #### 2 4344-4 ####[facility] LABCLIA [id number] [place] [address] [place] Lactate [Moles/Vol] 8.2 mmol/L High 0.5-2.2 [facility] Comment on above: Order Comment: Speci men Type: VENOUS BLOOD SPECIMENOrdering Facility: [facility] Address: [address] [place] [address] Performed By: #### 2 4344-4 ####[facility] LABCLIA [id number] [address] [address] [place] Methemoglobin (Bld) [Mass fraction] 1.0 % Normal 0.0-1.5 [facility] Comment on above: Order Comment: Speci men Type: VENOUS BLOOD SPECIMENOrdering Facility: [facility] Address: [address] [place] [address] Performed By: #### 2 4344-4 ####[facility] LABCLIA [id number] [address] [address] [place] Oxygen (BldV) [Partial pressure] 40 mm[Hg] Normal 35-45 [facility] Comment on above: Order Comment: Speci men Type: VENOUS BLOOD SPECIMENOrdering Facility: [facility] Address: [address] [place] [address] Performed By: #### 2 4344-4 ####[facility] LABCLIA [id number] [address] [address] [place] Oxygen saturation in Venous blood 63 % Normal 60-85 [facility] Comment on above: Order Comment: Speci men Type: VENOUS BLOOD SPECIMENOrdering Facility: [facility] Address: [address] [place] [address] Performed By: #### 2 4344-4 ####[facility] LABCLIA [id number] [address] [address] [place] Oxyhemoglobin (BldV) [Mass fraction] 62 % Normal 60-85 [facility] Comment on above: Order Comment: Speci men Type: VENOUS BLOOD SPECIMENOrdering Facility: [facility] Address: [address] [place] [address] Performed By: #### 2 4344-4 ####[facility] LABIA [id number] [place] [address] [place] pH (BldV) 7.25 [pH] Low 7.32-7.42 [facility] Comment on above: Order Comment: Speci men Type: VENOUS BLOOD SPECIMENOrdering Facility: [facility] Address: [address] [place] [address] Performed By: #### 2 4344-4 ####[facility] LABIA [id number] [place] [address] [place] Potassium [Moles/Vol] 3.7 mmol/L Normal 3.5-5.0 [facility] Comment on above: Order Comment: Speci men Type: VENOUS BLOOD SPECIMENOrdering Facility: [facility] Address: [address] [place] [address] Performed By: #### 2 4344-4 ####[facility] [id number] [place] [address] [place] Sodium [Moles/Vol] 141 mmol/L Normal 136-144 [facility] Comment on above: Order Comment: Speci men Type: VENOUS BLOOD SPECIMENOrdering Facility: [facility] Address: [address] [place] [address] Performed By: #### 2 4344-4 ####[facility] [id number] [place] [address] [place] HIGH SENSITIVITY TROPONIN To n 06-19-2024 Troponin T.cardiac High sensitivity method [Mass/Vol] 3121 ng/L High <12 [facility] Comment on above: Order Comment: Speci men Type: BLOOD SPECIMENOrdering Facility: [facility] Address: [address] [place] [address] Performed By: #### 2 4323-8, HSTNT ####[facility] [id number] [place] [address] [place] XR CHEST 1V FRONTAL PORTon 0 06-19-2024 XR CHEST 1V FRONTAL PORT Normal [facility] ANES POSTPROC EVALon 024 ANES POSTPROC EVAL Normal [facility] ANES PRE-OPon 06-18-2024 ANES PRE-OP Normal [facility] ARTERIAL BLOOD GASESon 06-18 Base deficit (BldA) [Moles/Vol] -7 mmol/L Low -2-0 [facility] Comment on above: Order Comment: Speci men Type: ARTERIAL BLOOD SPECIMENOrdering Facility: [facility] Address: [address] [place] [address] Performed By: #### A LLBG ####[facility] LABCLIA [id number] [place] [address] [place] Body temperature 98.6 [degF] Normal [facility] Comment on above: Order Comment: Speci men Type: ARTERIAL BLOOD SPECIMENOrdering Facility: [facility] Address: [address] [place] [address] Performed By: #### A LLBG ####[facility] LABCLIA [id number] [place] [address] [place] Order Comment: Speci men Type: VENOUS BLOOD SPECIMENOrdering Facility: [facility] Address: [address] [place] [address] Performed By: #### 2 4344-4 ####[facility] LABCLIA [id number] [place] [address] [place] Calcium.ionized (Bld) [Mass/Vol] 1.14 mmol/L Normal 1.08-1.30 [facility] Comment on above: Order Comment: Speci men Type: ARTERIAL BLOOD SPECIMENOrdering Facility: [facility] Address: [address] [place], [place] [id number] Performed By: #### A LLBG ####[facility] LABCLIA [id number] [id number] [address] [place] Calcium.ionized adjusted to pH 7.4 (BldA) [Moles/Vol] 1.09 mmol/L Normal 1.08-1.30 [facility] Comment on above: Order Comment: Speci men Type: ARTERIAL BLOOD SPECIMENOrdering Facility: [facility] Address: [address] [place] [address] Performed By: #### A LLBG ####[facility] LABCLIA [id number] [place] [address] [place] Carboxyhemoglobin (BldA) [Mass fraction] 1.7 % Normal 0.0-2.0 [facility] Comment on above: Order Comment: Speci men Type: ARTERIAL BLOOD SPECIMENOrdering Facility: [facility] Address: [address] [place] [address] Result Comment: Carb oxyhemoglobin Reference Range for Smokers: 2.0-8.0% Performed By: #### A LLBG ####[facility] LABCLIA [id number] [place] [address] [place] CO2 (Bld) [Partial pressure] 38 mm Hg Normal 36-46 [facility] Comment on above: Order Comment: Speci men Type: ARTERIAL BLOOD SPECIMENOrdering Facility: [facility] Address: [address] [place] [address] Performed By: #### A LLBG ####[facility] LABCLIA [id number] [place] [address] [place] Glucose [Mass/Vol] 200 mg/dL High 60-105 [facility] Comment on above: Order Comment: Speci men Type: ARTERIAL BLOOD SPECIMENOrdering Facility: [facility] Address: [address] [place] [address] Performed By: #### A LLBG ####[facility] LABCLIA [id number] [place] [address] [place] HCO3 (Bld) [Moles/Vol] 19 mmol/L Low 22-26 [facility] Comment on above: Order Comment: Speci men Type: ARTERIAL BLOOD SPECIMENOrdering Facility: [facility] Address: [address] [place] [address] Performed By: #### A LLBG ####[facility] LABCLIA [id number] [place] [address] [place] Hematocrit (Bld) [Volume fraction] 32.0 % Low 39.0-51.0 [facility] Comment on above: Order Comment: Speci men Type: ARTERIAL BLOOD SPECIMENOrdering Facility: [facility] Address: [address] [place] [address] Performed By: #### A LLBG ####[facility] LABCLIA [id number] [place] [address] [place] Hemoglobin (Bld) [Mass/Vol] 10.3 g/dL Low 13.0-17.0 [facility] Comment on above: Order Comment: Speci men Type: ARTERIAL BLOOD SPECIMENOrdering Facility: [facility] Address: [address] [place] [address] Performed By: #### A LLBG ####[facility] LABCLIA [id number] [place] [address] [place] Order Comment: Speci men Type: VENOUS BLOOD SPECIMENOrdering Facility: [facility] Address: [address] [place] [address] Performed By: #### 2 4344-4 ####[facility] LABCLIA [id number] [place] [address] [place] Order Comment: Speci men Type: BLOOD SPECIMENOrdering Facility: [facility] Address: [address] [place] [address] Performed By: #### 5 8410-2 ####[facility] LABCLIA [id number] [place] [address] [place] Lactate [Moles/Vol] 7.0 mmol/L High 0.5-2.2 [facility] Comment on above: Order Comment: Speci men Type: ARTERIAL BLOOD SPECIMENOrdering Facility: [facility] Address: [address] [place] [address] Performed By: #### A LLBG ####[facility] LABCLIA [id number] [address] [address] [place] Methemoglobin (Bld) [Mass fraction] 0.9 % Normal 0.0-1.5 [facility] Comment on above: Order Comment: Speci men Type: ARTERIAL BLOOD SPECIMENOrdering Facility: [facility] Address: [address] [place] [address] Performed By: #### A LLBG ####[facility] LABCLIA [id number] [place] [address] [place] O2 THERAPY VENT=Ventilator Normal [facility] Comment on above: Order Comment: Speci men Type: ARTERIAL BLOOD SPECIMENOrdering Facility: [facility] Address: [address] [place] [address] Performed By: #### A LLBG ####[facility] LABCLIA [id number] [place] [address] [place] Order Comment: Speci men Type: VENOUS BLOOD SPECIMENOrdering Facility: [facility] Address: [address] [place], [place] [address] Performed By: #### 2 4344-4 ####[facility] LABCLIA [id number] [place] [address] [place] Oxygen (Bld) [Partial pressure] 161 mm Hg High 85-95 [facility] Comment on above: Order Comment: Speci men Type: ARTERIAL BLOOD SPECIMENOrdering Facility: [facility] Address: [address] [place] [address] Performed By: #### A LLBG ####[facility] LABCLIA [id number] [place] [address] [place] Oxyhemoglobin (BldA) [Mass fraction] 97 % Normal 95-98 [facility] Comment on above: Order Comment: Speci men Type: ARTERIAL BLOOD SPECIMENOrdering Facility: [facility] Address: [address] [place] [address] Performed By: #### A LLBG ####[facility] LABCLIA [id number] [place] [address] [place] pH (Bld) 7.31 [pH] Low 7.35-7.45 [facility] Comment on above: Order Comment: Speci men Type: ARTERIAL BLOOD SPECIMENOrdering Facility: [facility] Address: [address] [place] [address] Performed By: #### A LLBG ####[facility] LABCLIA [id number] [place] [address] [place] Potassium [Moles/Vol] 4.3 mmol/L Normal 3.5-5.0 [facility] Comment on above: Order Comment: Speci men Type: ARTERIAL BLOOD SPECIMENOrdering Facility: [facility] Address: [address] [place] [address] Performed By: #### A LLBG ####[facility] LABCLIA [id number] [place] [address] [place] Order Comment: Speci men Type: VENOUS BLOOD SPECIMENOrdering Facility: [facility] Address: [address] [place] [address] Performed By: #### 2 4344-4 ####[facility] LABCLIA [id number] [place] [address] [place] Sodium [Moles/Vol] 138 mmol/L Normal 136-144 [facility] Comment on above: Order Comment: Speci men Type: ARTERIAL BLOOD SPECIMENOrdering Facility: [facility] Address: [address] [place] [address] Performed By: #### A LLBG ####[facility] LABCLIA [id number] [place] [address] [place] Base deficit (BldA) [Moles/Vol] -5 mmol/L Low -2-0 [facility] Comment on above: Order Comment: Speci men Type: ARTERIAL BLOOD SPECIMENOrdering Facility: [facility] Address: [address] [place] [address] Performed By: #### A LLBG ####[facility] LABCLIA [id number] [place] [address] [place] Body temperature 95 [degF] Normal [facility] Comment on above: Order Comment: Speci men Type: ARTERIAL BLOOD SPECIMENOrdering Facility: [facility] Address: [address] [place] [address] Performed By: #### A LLBG ####[facility] LABCLIA [id number] [address] [place] Order Comment: Speci men Type: VENOUS BLOOD SPECIMENOrdering Facility: [facility] Address: [address] [place] [address] Performed By: #### 2 4344-4 ####[facility] LABCLIA [id number] [place] [address] [place] Calcium.ionized (Bld) [Mass/Vol] 1.15 mmol/L Normal 1.08-1.30 [facility] Comment on above: Order Comment: Speci men Type: ARTERIAL BLOOD SPECIMENOrdering Facility: [facility] Address: [address] [place] [address] Performed By: #### A LLBG ####[facility] LABCLIA [id number] [place] [address] [place] Calcium.ionized adjusted to pH 7.4 (BldA) [Moles/Vol] 1.11 mmol/L Normal 1.08-1.30 [facility] Comment on above: Order Comment: Speci men Type: ARTERIAL BLOOD SPECIMENOrdering Facility: [facility] Address: [address] [place] [address] Performed By: #### A LLBG ####[facility] LABCLIA [id number] [place] [address] [place] Carboxyhemoglobin (BldA) [Mass fraction] 1.6 % Normal 0.0-2.0 [facility] Comment on above: Order Comment: Speci men Type: ARTERIAL BLOOD SPECIMENOrdering Facility: [facility] Address: [address] [place] [address] Result Comment: Carb oxyhemoglobin Reference Range for Smokers: 2.0-8.0% Performed By: #### A LLBG ####[facility] LABCLIA [id number] [place] [address] [place] CO2 (Bld) [Partial pressure] 41 mm Hg Normal 36-46 [facility] Comment on above: Order Comment: Speci men Type: ARTERIAL BLOOD SPECIMENOrdering Facility: [facility] Address: [address] [place] [address] Performed By: #### A LLBG ####[facility] LABCLIA [id number] [place] [address] [place] CO2 adjusted to patient's actual temperature (Bld) [Partial pressure] 37 mmHg Normal 36-46 [facility] Comment on above: Order Comment: Speci men Type: ARTERIAL BLOOD SPECIMENOrdering Facility: [facility] Address: [address] [place] [address] Performed By: #### A LLBG ####[facility] LABCLIA [id number] [place] [address] [place] Glucose [Mass/Vol] 189 mg/dL High 60-105 [facility] Comment on above: Order Comment: Speci men Type: ARTERIAL BLOOD SPECIMENOrdering Facility: [facility] Address: [address] [place] [address] Performed By: #### A LLBG ####[facility] LABCLIA [id number] [place] [address] [place] Order Comment: Speci men Type: VENOUS BLOOD SPECIMENOrdering Facility: [facility] Address: [address] [place] [address] Performed By: #### 2 4344-4 ####[facility] LABCLIA [id number] [place] [address] [place] HCO3 (Bld) [Moles/Vol] 21 mmol/L Low 22-26 [facility] Comment on above: Order Comment: Speci men Type: ARTERIAL BLOOD SPECIMENOrdering Facility: [facility] Address: [address] [place] [address] Performed By: #### A LLBG ####[facility] LABCLIA [id number] [place] [address] [place] Hematocrit (Bld) [Volume fraction] 34.9 % Low 39.0-51.0 [facility] Comment on above: Order Comment: Speci men Type: ARTERIAL BLOOD SPECIMENOrdering Facility: [facility] Address: [address] [place] [address] Performed By: #### A LLBG ####[facility] LABCLIA [id number] [place] [address] [place] Hemoglobin (Bld) [Mass/Vol] 11.3 g/dL Low 13.0-17.0 [facility] Comment on above: Order Comment: Speci men Type: ARTERIAL BLOOD SPECIMENOrdering Facility: [facility] Address: [address] [place] [address] Performed By: #### A LLBG ####[facility] LABCLIA [id number] [place] [address] [place] Lactate [Moles/Vol] 5.3 mmol/L High 0.5-2.2 [facility] Comment on above: Order Comment: Speci men Type: ARTERIAL BLOOD SPECIMENOrdering Facility: [facility] Address: [address], [place] [address] Performed By: #### A LLBG ####[facility] LABCLIA [id number] [address] [address] [place] Methemoglobin (Bld) [Mass fraction] 0.8 % Normal 0.0-1.5 [facility] Comment on above: Order Comment: Speci men Type: ARTERIAL BLOOD SPECIMENOrdering Facility: [facility] Address: [address] [place] [id number] Performed By: #### A LLBG ####[facility] LABCLIA [id number] [address] [address] [place] O2 THERAPY VENT=Ventilator Normal [facility] Comment on above: Order Comment: Speci men Type: ARTERIAL BLOOD SPECIMENOrdering Facility: [facility] Address: [address] [place] [id number] Performed By: #### A LLBG ####[facility] LABCLIA [id number] [place] [address] [place] Order Comment: Speci men Type: VENOUS BLOOD SPECIMENOrdering Facility: [facility] Address: [address] [place] [id number] Performed By: #### 2 4344-4 ####[facility] LABCLIA [id number] [address] [address] [place] Oxygen (Bld) [Partial pressure] 134 mm Hg High 85-95 [facility] Comment on above: Order Comment: Speci men Type: ARTERIAL BLOOD SPECIMENOrdering Facility: [facility] Address: [address] [place] [address] Performed By: #### A LLBG ####[facility] LABCLIA [id number] [address] [address] [place] Oxygen adjusted to patient's actual temperature (Bld) [Partial pressure] 123 mmHg High 85-95 [facility] Comment on above: Order Comment: Speci men Type: ARTERIAL BLOOD SPECIMENOrdering Facility: [facility] Address: [address] [place] [address] Performed By: #### A LLBG ####[facility] LABCLIA [id number] [place] [address] [place] Oxyhemoglobin (BldA) [Mass fraction] 97 % Normal 95-98 [facility] Comment on above: Order Comment: Speci men Type: ARTERIAL BLOOD SPECIMENOrdering Facility: [facility] Address: [address] [place] [address] Performed By: #### A LLBG ####[facility] LABIA [id number] [place] [address] [place] pH (Bld) 7.32 [pH] Low 7.35-7.45 [facility] Comment on above: Order Comment: Speci men Type: ARTERIAL BLOOD SPECIMENOrdering Facility: [facility] Address: [address] [place] [address] Performed By: #### A LLBG ####[facility] LABIA [id number] [place] [address] [place] pH adjusted to patient's actual temperature (Bld) 7.35 Normal 7.35-7.45 [facility] Comment on above: Order Comment: Speci men Type: ARTERIAL BLOOD SPECIMENOrdering Facility: [facility] Address: [address] [place] [address] Performed By: #### A LLBG ####[facility] LABIA [id number] [place] [address] [place] Potassium [Moles/Vol] 5.5 mmol/L High 3.5-5.0 [facility] Comment on above: Order Comment: Speci men Type: ARTERIAL BLOOD SPECIMENOrdering Facility: [facility] Address: [address] [place] [address] Performed By: #### A LLBG ####[facility] LABIA [id number] [place] [address] [place] Sodium [Moles/Vol] 136 mmol/L Normal 136-144 [facility] Comment on above: Order Comment: Speci men Type: ARTERIAL BLOOD SPECIMENOrdering Facility: [facility] Address: [address] [place] [address] Performed By: #### A LLBG ####[facility] LABCLIA [id number] [place] [address] [place] Order Comment: Speci men Type: VENOUS BLOOD SPECIMENOrdering Facility: [facility] Address: [address] [place] [address] Performed By: #### 2 4344-4 ####[facility] LABCLIA [id number] [place] [address] [place] Base deficit (BldA) [Moles/Vol] -2 mmol/L Normal -2-0 [facility] Comment on above: Order Comment: Speci men Type: ARTERIAL BLOOD SPECIMENOrdering Facility: [facility] Address: [address] [place] [address] Performed By: #### A LLBG ####[facility] LABCLIA [id number] [place] [address] [place] Calcium.ionized (Bld) [Mass/Vol] 1.17 mmol/L Normal 1.08-1.30 [facility] Comment on above: Order Comment: Speci men Type: ARTERIAL BLOOD SPECIMENOrdering Facility: [facility] Address: [address] [place] [address] Performed By: #### A LLBG ####[facility] LABCLIA [id number] [place] [address] [place] Calcium.ionized adjusted to pH 7.4 (BldA) [Moles/Vol] 1.15 mmol/L Normal 1.08-1.30 [facility] Comment on above: Order Comment: Speci men Type: ARTERIAL BLOOD SPECIMENOrdering Facility: [facility] Address: [address] [place] [address] Performed By: #### A LLBG ####[facility] LABCLIA [id number] [place] [address] [place] Carboxyhemoglobin (BldA) [Mass fraction] 1.6 % Normal 0.0-2.0 [facility] Comment on above: Order Comment: Speci men Type: ARTERIAL BLOOD SPECIMENOrdering Facility: [facility] Address: [address] [place] [address] Result Comment: Carb oxyhemoglobin Reference Range for Smokers: 2.0-8.0% Performed By: #### A LLBG ####[facility] LABCLIA [id number] [place] [address] [place] CO2 (Bld) [Partial pressure] 39 mm Hg Normal 36-46 [facility] Comment on above: Order Comment: Speci men Type: ARTERIAL BLOOD SPECIMENOrdering Facility: [facility] Address: [address] [place] [address] Performed By: #### A LLBG ####[facility] LABCLIA [id number] [place] [address] [place] CO2 adjusted to patient's actual temperature (Bld) [Partial pressure] 39 mmHg Normal 36-46 [facility] Comment on above: Order Comment: Speci men Type: ARTERIAL BLOOD SPECIMENOrdering Facility: [facility] Address: [address] [place] [address] Performed By: #### A LLBG ####[facility] LABCLIA [id number] [place] [address] [place] Glucose [Mass/Vol] 180 mg/dL High 60-105 [facility] Comment on above: Order Comment: Speci men Type: ARTERIAL BLOOD SPECIMENOrdering Facility: [facility] Address: [address] [place] [address] Performed By: #### A LLBG ####[facility] LABCLIA [id number] [place] [address] [place] HCO3 (Bld) [Moles/Vol] 22 mmol/L Normal 22-26 [facility] Comment on above: Order Comment: Speci men Type: ARTERIAL BLOOD SPECIMENOrdering Facility: [facility] Address: [address] [place] [address] Performed By: #### A LLBG ####[facility] LABCLIA [id number] [place] [address] [place] Hematocrit (Bld) [Volume fraction] 28.9 % Low 39.0-51.0 [facility] Comment on above: Order Comment: Speci men Type: ARTERIAL BLOOD SPECIMENOrdering Facility: [facility] Address: [address] [place] [address] Performed By: #### A LLBG ####[facility] LABCLIA [id number] [place] [address] [place] Hemoglobin (Bld) [Mass/Vol] 9.3 g/dL Low 13.0-17.0 [facility] Comment on above: Order Comment: Speci men Type: ARTERIAL BLOOD SPECIMENOrdering Facility: [facility] Address: [address] [place] [address] Performed By: #### A LLBG ####[facility] LABCLIA [id number] [place] [address] [place] Lactate [Moles/Vol] 4.7 mmol/L High 0.5-2.2 [facility] Comment on above: Order Comment: Speci men Type: ARTERIAL BLOOD SPECIMENOrdering Facility: [facility] Address: [address] [place] [address] Performed By: #### A LLBG ####[facility] LABCLIA [id number] [place] [address] [place] Methemoglobin (Bld) [Mass fraction] 0.8 % Normal 0.0-1.5 [facility] Comment on above: Order Comment: Speci men Type: ARTERIAL BLOOD SPECIMENOrdering Facility: [facility] Address: [address] [id number] Performed By: #### A LLBG ####[facility] LABCLIA [id number] [place] [address] [place] Oxygen (Bld) [Partial pressure] 213 mm Hg High 85-95 [facility] Comment on above: Order Comment: Speci men Type: ARTERIAL BLOOD SPECIMENOrdering Facility: [facility] Address: [address] [place] [address] Performed By: #### A LLBG ####[facility] LABCLIA [id number] [place] [address] [place] Oxygen adjusted to patient's actual temperature (Bld) [Partial pressure] 213 mmHg High 85-95 [facility] Comment on above: Order Comment: Speci men Type: ARTERIAL BLOOD SPECIMENOrdering Facility: [facility] Address: [address] [place] [address] Performed By: #### A LLBG ####[facility] LABCLIA [id number] [place] [address] [place] Oxyhemoglobin (BldA) [Mass fraction] 98 % Normal 95-98 [facility] Comment on above: Order Comment: Speci men Type: ARTERIAL BLOOD SPECIMENOrdering Facility: [facility] Address: [address] [place] [address] Performed By: #### A LLBG ####[facility] LABCLIA [id number] [place] [address] [place] pH (Bld) 7.38 [pH] Normal 7.35-7.45 [facility] Comment on above: Order Comment: Speci men Type: ARTERIAL BLOOD SPECIMENOrdering Facility: [facility] Address: [address] [place], [place] [id number] Performed By: #### A LLBG ####[facility] LABCLIA [id number] [place] [address] [place] pH adjusted to patient's actual temperature (Bld) 7.38 Normal 7.35-7.45 [facility] Comment on above: Order Comment: Speci men Type: ARTERIAL BLOOD SPECIMENOrdering Facility: [facility] Address: [address] [place] [address] Performed By: #### A LLBG ####[facility] LABCLIA [id number] [place] [address] [place] Potassium [Moles/Vol] 5.3 mmol/L High 3.5-5.0 [facility] Comment on above: Order Comment: Speci men Type: ARTERIAL BLOOD SPECIMENOrdering Facility: [facility] Address: [address] [place] [address] Performed By: #### A LLBG ####[facility] LABCLIA [id number] [place] [address] [place] Sodium [Moles/Vol] 137 mmol/L Normal 136-144 [facility] Comment on above: Order Comment: Speci men Type: ARTERIAL BLOOD SPECIMENOrdering Facility: [facility] Address: [address] [place] [address] Performed By: #### A LLBG ####[facility] LABIA [id number] [place] [address] [place] Base deficit (BldA) [Moles/Vol] -5 mmol/L Low -2-0 [facility] Comment on above: Order Comment: Speci men Type: ARTERIAL BLOOD SPECIMENOrdering Facility: [facility] Address: [address] [place] [address] Performed By: #### A LLBG ####[facility] LABCLIA [id number] [place] [address] [place] Calcium.ionized (Bld) [Mass/Vol] 1.14 mmol/L Normal 1.08-1.30 [facility] Comment on above: Order Comment: Speci men Type: ARTERIAL BLOOD SPECIMENOrdering Facility: [facility] Address: [address] [place] [address] Performed By: #### A LLBG ####[facility] LABIA [id number] [place] [address] [place] Calcium.ionized adjusted to pH 7.4 (BldA) [Moles/Vol] 1.06 mmol/L Low 1.08-1.30 [facility] Comment on above: Order Comment: Speci men Type: ARTERIAL BLOOD SPECIMENOrdering Facility: [facility] Address: [address] [place] [address] Performed By: #### A LLBG ####[facility] LABIA [id number] [place] [address] [place] Carboxyhemoglobin (BldA) [Mass fraction] 1.7 % Normal 0.0-2.0 [facility] Comment on above: Order Comment: Speci men Type: ARTERIAL BLOOD SPECIMENOrdering Facility: [facility] Address: [address] [place] [address] Result Comment: Carb oxyhemoglobin Reference Range for Smokers: 2.0-8.0% Performed By: #### A LLBG ####[facility] LABCLIA [id number] [place] [address] [place] CO2 (Bld) [Partial pressure] 49 mm Hg High 36-46 [facility] Comment on above: Order Comment: Speci men Type: ARTERIAL BLOOD SPECIMENOrdering Facility: [facility] Address: [address] [place] [address] Performed By: #### A LLBG ####[facility] LABCLIA [id number] [place] [address] [place] CO2 adjusted to patient's actual temperature (Bld) [Partial pressure] 49 mmHg High 36-46 [facility] Comment on above: Order Comment: Speci men Type: ARTERIAL BLOOD SPECIMENOrdering Facility: [facility] Address: [address] [place] [address] Performed By: #### A LLBG ####[facility] LABCLIA [id number] [place] [address] [place] Glucose [Mass/Vol] 193 mg/dL High 60-105 [facility] Comment on above: Order Comment: Speci men Type: ARTERIAL BLOOD SPECIMENOrdering Facility: [facility] Address: [address] [place] [address] Performed By: #### A LLBG ####[facility] LABCLIA [id number] [place] [address] [place] HCO3 (Bld) [Moles/Vol] 22 mmol/L Normal 22-26 [facility] Comment on above: Order Comment: Speci men Type: ARTERIAL BLOOD SPECIMENOrdering Facility: [facility] Address: [address] [place] [address] Performed By: #### A LLBG ####[facility] LABCLIA [id number] [place] [address] [place] Hematocrit (Bld) [Volume fraction] 27.7 % Low 39.0-51.0 [facility] Comment on above: Order Comment: Speci men Type: ARTERIAL BLOOD SPECIMENOrdering Facility: [facility] Address: [address] [place] [address] Performed By: #### A LLBG ####[facility] LABCLIA [id number] [place] [address] [place] Hemoglobin (Bld) [Mass/Vol] 8.9 g/dL Low 13.0-17.0 [facility] Comment on above: Order Comment: Speci men Type: ARTERIAL BLOOD SPECIMENOrdering Facility: [facility] Address: [address] [place] [address] Performed By: #### A LLBG ####[facility] LABCLIA [id number] [id number] [address] [place] Lactate [Moles/Vol] 5.1 mmol/L High 0.5-2.2 [facility] Comment on above: Order Comment: Speci men Type: ARTERIAL BLOOD SPECIMENOrdering Facility: [facility] Address: [address] [place] [address] Performed By: #### A LLBG ####[facility] LABCLIA [id number] [place] [address] [place] Methemoglobin (Bld) [Mass fraction] 1.0 % Normal 0.0-1.5 [facility] Comment on above: Order Comment: Speci men Type: ARTERIAL BLOOD SPECIMENOrdering Facility: [facility] Address: [address] [place] [address] Performed By: #### A LLBG ####[facility] LABCLIA [id number] [place] [address] [place] Oxygen (Bld) [Partial pressure] 223 mm Hg High 85-95 [facility] Comment on above: Order Comment: Speci men Type: ARTERIAL BLOOD SPECIMENOrdering Facility: [facility] Address: [address] [place] [address] Performed By: #### A LLBG ####[facility] LABCLIA [id number] [place] [address] [place] Oxygen adjusted to patient's actual temperature (Bld) [Partial pressure] 223 mmHg High 85-95 [facility] Comment on above: Order Comment: Speci men Type: ARTERIAL BLOOD SPECIMENOrdering Facility: [facility] Address: [address] [id number] Performed By: #### A LLBG ####[facility] LABCLIA [id number] [place] [id number] [place] Oxyhemoglobin (BldA) [Mass fraction] 97 % Normal 95-98 [facility] Comment on above: Order Comment: Speci men Type: ARTERIAL BLOOD SPECIMENOrdering Facility: [facility] Address: [address] [place] [address] Performed By: #### A LLBG ####[facility] LABCLIA [id number] [place] [address] [place] pH (Bld) 7.27 [pH] Low 7.35-7.45 [facility] Comment on above: Order Comment: Speci men Type: ARTERIAL BLOOD SPECIMENOrdering Facility: [facility] Address: [address] [place] [address] Performed By: #### A LLBG ####[facility] LABCLIA [id number] [place] [address] [place] pH adjusted to patient's actual temperature (Bld) 7.27 Low 7.35-7.45 [facility] Comment on above: Order Comment: Speci men Type: ARTERIAL BLOOD SPECIMENOrdering Facility: [facility] Address: [address] [place] [address] Performed By: #### A LLBG ####[facility] LABCLIA [id number] [place] [address] [place] Potassium [Moles/Vol] 4.9 mmol/L Normal 3.5-5.0 [facility] Comment on above: Order Comment: Speci men Type: ARTERIAL BLOOD SPECIMENOrdering Facility: [facility] Address: [address] [place] [address] Performed By: #### A LLBG ####[facility] LABCLIA [id number] [place] [address] [place] Sodium [Moles/Vol] 136 mmol/L Normal 136-144 [facility] Comment on above: Order Comment: Speci men Type: ARTERIAL BLOOD SPECIMENOrdering Facility: [facility] Address: [address] [place] [address] Performed By: #### A LLBG ####[facility] LABCLIA [id number] [place] [address] [place] Base deficit (BldA) [Moles/Vol] -10 mmol/L Low -2-0 [facility] Comment on above: Order Comment: Speci men Type: ARTERIAL BLOOD SPECIMENOrdering Facility: [facility] Address: [address] [place] [address] Performed By: #### A LLBG ####[facility] LABCLIA [id number] [place] [address] [place] Calcium.ionized (Bld) [Mass/Vol] 1.17 mmol/L Normal 1.08-1.30 [facility] Comment on above: Order Comment: Speci men Type: ARTERIAL BLOOD SPECIMENOrdering Facility: [facility] Address: [address] [place] [address] Performed By: #### A LLBG ####[facility] LABCLIA [id number] [place] [address] [place] Carboxyhemoglobin (BldA) [Mass fraction] 1.4 % Normal 0.0-2.0 [facility] Comment on above: Order Comment: Speci men Type: ARTERIAL BLOOD SPECIMENOrdering Facility: [facility] Address: [address] [place] [address] Result Comment: Carb oxyhemoglobin Reference Range for Smokers: 2.0-8.0% Performed By: #### A LLBG ####[facility] LABCLIA [id number] [place] [address] [place] CO2 (Bld) [Partial pressure] 47 mm Hg High 36-46 [facility] Comment on above: Order Comment: Speci men Type: ARTERIAL BLOOD SPECIMENOrdering Facility: [facility] Address: [address] [place] [address] Performed By: #### A LLBG ####[facility] LABCLIA [id number] [place] [address] [place] CO2 adjusted to patient's actual temperature (Bld) [Partial pressure] 47 mmHg High 36-46 [facility] Comment on above: Order Comment: Speci men Type: ARTERIAL BLOOD SPECIMENOrdering Facility: [facility] Address: [address] [id number] Performed By: #### A LLBG ####[facility] LABCLIA [id number] [place] [id number] [place] COMMENTS Critical Value: pH, pH(t) Normal [facility] Comment on above: Order Comment: Speci men Type: ARTERIAL BLOOD SPECIMENOrdering Facility: [facility] Address: [address] [place] [address] Performed By: #### A LLBG ####[facility] LABCLIA [id number] [place] [address] [place] DATE/TIME NOTIFIED [id number] PM [facility] Comment on above: Order Comment: Speci men Type: ARTERIAL BLOOD SPECIMENOrdering Facility: [facility] Address: [address] [place] [address] Performed By: #### A LLBG ####[facility] LABCLIA [id number] [place] [address] [place] Glucose [Mass/Vol] 225 mg/dL High 60-105 [facility] Comment on above: Order Comment: Speci men Type: ARTERIAL BLOOD SPECIMENOrdering Facility: [facility] Address: [address] [place], [place] [id number] Performed By: #### A LLBG ####[facility] LABCLIA [id number] [place] [id number] [place] HCO3 (Bld) [Moles/Vol] 17 mmol/L Low 22-26 [facility] Comment on above: Order Comment: Speci men Type: ARTERIAL BLOOD SPECIMENOrdering Facility: [facility] Address: [address] [place], [place] [id number] Performed By: #### A LLBG ####[facility] LABCLIA [id number] [place] [address] [place] Hematocrit (Bld) [Volume fraction] 30.5 % Low 39.0-51.0 [facility] Comment on above: Order Comment: Speci men Type: ARTERIAL BLOOD SPECIMENOrdering Facility: [facility] Address: [address] [place] [address] Performed By: #### A LLBG ####[facility] LABCLIA [id number] [place] [address] [place] Hemoglobin (Bld) [Mass/Vol] 9.9 g/dL Low 13.0-17.0 [facility] Comment on above: Order Comment: Speci men Type: ARTERIAL BLOOD SPECIMENOrdering Facility: [facility] Address: [address] [place] [address] Performed By: #### A LLBG ####[facility] LABCLIA [id number] [place] [address] [place] Lactate [Moles/Vol] 5.4 mmol/L High 0.5-2.2 [facility] Comment on above: Order Comment: Speci men Type: ARTERIAL BLOOD SPECIMENOrdering Facility: [facility] Address: [address] [place] [address] Performed By: #### A LLBG ####[facility] LABCLIA [id number] [place] [address] [place] Methemoglobin (Bld) [Mass fraction] 1.0 % Normal 0.0-1.5 [facility] Comment on above: Order Comment: Speci men Type: ARTERIAL BLOOD SPECIMENOrdering Facility: [facility] Address: [address] [place] [address] Performed By: #### A LLBG ####[facility] LABCLIA [id number] [place] [address] [place] NOTIFIED WHOM Jake fung RN, ORCarolina Bunn Normal [facility] Comment on above: Order Comment: Speci men Type: ARTERIAL BLOOD SPECIMENOrdering Facility: [facility] Address: [address] [place] [address] Performed By: #### A LLBG ####[facility] LABCLIA [id number] [place] [address] [place] Oxygen (Bld) [Partial pressure] 278 mm Hg High 85-95 [facility] Comment on above: Order Comment: Speci men Type: ARTERIAL BLOOD SPECIMENOrdering Facility: [facility] Address: [address] [place] [address] Performed By: #### A LLBG ####[facility] LABCLIA [id number] [place] [address] [place] Oxygen adjusted to patient's actual temperature (Bld) [Partial pressure] 278 mmHg High 85-95 [facility] Comment on above: Order Comment: Speci men Type: ARTERIAL BLOOD SPECIMENOrdering Facility: [facility] Address: [address] [place] [address] Performed By: #### A LLBG ####[facility] LABIA [id number] [place] [address] [place] Oxyhemoglobin (BldA) [Mass fraction] 97 % Normal 95-98 [facility] Comment on above: Order Comment: Speci men Type: ARTERIAL BLOOD SPECIMENOrdering Facility: [facility] Address: [address] [place] [address] Performed By: #### A LLBG ####[facility] LABCLIA [id number] [place] [id number] [place] pH (Bld) 7.20 [pH] Low 7.35-7.45 [facility] Comment on above: Order Comment: Speci men Type: ARTERIAL BLOOD SPECIMENOrdering Facility: [facility] Address: [address] [place] [address] Performed By: #### A LLBG ####[facility] LABCLIA [id number] [place] [address] [place] pH adjusted to patient's actual temperature (Bld) 7.20 Low 7.35-7.45 [facility] Comment on above: Order Comment: Speci men Type: ARTERIAL BLOOD SPECIMENOrdering Facility: [facility] Address: [address] [place] [address] Performed By: #### A LLBG ####[facility] LABCLIA [id number] [place] [address] [place] Potassium [Moles/Vol] 4.7 mmol/L Normal 3.5-5.0 [facility] Comment on above: Order Comment: Speci men Type: ARTERIAL BLOOD SPECIMENOrdering Facility: [facility] Address: [address] [place] [address] Performed By: #### A LLBG ####[facility] LABIA [id number] [place] [address] [place] Sodium [Moles/Vol] 135 mmol/L Low 136-144 [facility] Comment on above: Order Comment: Speci men Type: ARTERIAL BLOOD SPECIMENOrdering Facility: [facility] Address: [address] [place] [address] Performed By: #### A LLBG ####[facility] LABCLIA [id number] [place] [address] [place] Base deficit (BldA) [Moles/Vol] -9 mmol/L Low -2-0 [facility] Comment on above: Order Comment: Speci men Type: ARTERIAL BLOOD SPECIMENOrdering Facility: [facility] Address: [address] [place] [address] Performed By: #### A LLBG ####[facility] LABCLIA [id number] [place] [address] [place] Calcium.ionized (Bld) [Mass/Vol] 1.13 mmol/L Normal 1.08-1.30 [facility] Comment on above: Order Comment: Speci men Type: ARTERIAL BLOOD SPECIMENOrdering Facility: [facility] Address: [address] [place] [address] Performed By: #### A LLBG ####[facility] LABIA [id number] [place] [address] [place] Calcium.ionized adjusted to pH 7.4 (BldA) [Moles/Vol] 1.04 mmol/L Low 1.08-1.30 [facility] Comment on above: Order Comment: Speci men Type: ARTERIAL BLOOD SPECIMENOrdering Facility: [facility] Address: [address] [place] [address] Performed By: #### A LLBG ####[facility] LABIA [id number] [place] [address] [place] Carboxyhemoglobin (BldA) [Mass fraction] 1.2 % Normal 0.0-2.0 [facility] Comment on above: Order Comment: Speci men Type: ARTERIAL BLOOD SPECIMENOrdering Facility: [facility] Address: [address] [place] [address] Result Comment: Carb oxyhemoglobin Reference Range for Smokers: 2.0-8.0% Performed By: #### A LLBG ####[facility] LABIA [id number] [place] [address] [place] CO2 (Bld) [Partial pressure] 41 mm Hg Normal 36-46 [facility] Comment on above: Order Comment: Speci men Type: ARTERIAL BLOOD SPECIMENOrdering Facility: [facility] Address: [address] [place] [address] Performed By: #### A LLBG ####[facility] LABIA [id number] [place] [address] [place] CO2 adjusted to patient's actual temperature (Bld) [Partial pressure] 41 mmHg Normal 36-46 [facility] Comment on above: Order Comment: Speci men Type: ARTERIAL BLOOD SPECIMENOrdering Facility: [facility] Address: [address] [place] [address] Performed By: #### A LLBG ####[facility] LABCLIA [id number] [place] [address] [place] Glucose [Mass/Vol] 222 mg/dL High 60-105 [facility] Comment on above: Order Comment: Speci men Type: ARTERIAL BLOOD SPECIMENOrdering Facility: [facility] Address: [address] [place] [address] Performed By: #### A LLBG ####[facility] LABCLIA [id number] [place] [address] [place] HCO3 (Bld) [Moles/Vol] 17 mmol/L Low 22-26 [facility] Comment on above: Order Comment: Speci men Type: ARTERIAL BLOOD SPECIMENOrdering Facility: [facility] [facility] Address: [address] [place] [address] Performed By: #### A LLBG ####[facility] LABCLIA [id number] [place] [address] [place] Hematocrit (Bld) [Volume fraction] 28.9 % Low 39.0-51.0 [facility] Comment on above: Order Comment: Speci men Type: ARTERIAL BLOOD SPECIMENOrdering Facility: [facility] Address: [address] [place] [address] Performed By: #### A LLBG ####[facility] LABIA [id number] [place] [address] [place] Hemoglobin (Bld) [Mass/Vol] 9.3 g/dL Low 13.0-17.0 [facility] Comment on above: Order Comment: Speci men Type: ARTERIAL BLOOD SPECIMENOrdering Facility: [facility] Address: [address] [place] [address] Performed By: #### A LLBG ####[facility] LABCLIA [id number] [place] [address] [place] Lactate [Moles/Vol] 5.2 mmol/L High 0.5-2.2 [facility] Comment on above: Order Comment: Speci men Type: ARTERIAL BLOOD SPECIMENOrdering Facility: [facility] Address: [address] [place] [address] Performed By: #### A LLBG ####[facility] LABCLIA [id number] [address] [address] [place] Methemoglobin (Bld) [Mass fraction] 1.7 % High 0.0-1.5 [facility] Comment on above: Order Comment: Speci men Type: ARTERIAL BLOOD SPECIMENOrdering Facility: [facility] Address: [address] [place] [id number] Performed By: #### A LLBG ####[facility] LABCLIA [id number] [place] [id number] [place] Oxygen (Bld) [Partial pressure] 316 mm Hg High 85-95 [facility] Comment on above: Order Comment: Speci men Type: ARTERIAL BLOOD SPECIMENOrdering Facility: [facility] Address: [address] [place] [id number] Performed By: #### A LLBG ####[facility] LABCLIA [id number] [place] [id number] [place] Oxygen adjusted to patient's actual temperature (Bld) [Partial pressure] 316 mmHg High 85-95 [facility] Comment on above: Order Comment: Speci men Type: ARTERIAL BLOOD SPECIMENOrdering Facility: [facility] Address: [address] [place] [address] Performed By: #### A LLBG ####[facility] LABCLIA [id number] [place] [id number] [place] Oxyhemoglobin (BldA) [Mass fraction] 97 % Normal 95-98 [facility] Comment on above: Order Comment: Speci men Type: ARTERIAL BLOOD SPECIMENOrdering Facility: [facility] Address: [address] [place] [address] Performed By: #### A LLBG ####[facility] LABCLIA [id number] [place] [address] [place] pH (Bld) 7.24 [pH] Low 7.35-7.45 [facility] Comment on above: Order Comment: Speci men Type: ARTERIAL BLOOD SPECIMENOrdering Facility: [facility] Address: [address] [place] [address] Performed By: #### A LLBG ####[facility] LABIA [id number] [place] [address] [place] pH adjusted to patient's actual temperature (Bld) 7.24 Low 7.35-7.45 [facility] Comment on above: Order Comment: Speci men Type: ARTERIAL BLOOD SPECIMENOrdering Facility: [facility] Address: [address] [place] [address] Performed By: #### A LLBG ####[facility] LABIA [id number] [place] [address] [place] Potassium [Moles/Vol] 4.8 mmol/L Normal 3.5-5.0 [facility] Comment on above: Order Comment: Speci men Type: ARTERIAL BLOOD SPECIMENOrdering Facility: [facility] Address: [address] [place] [address] Performed By: #### A LLBG ####[facility] LABIA [id number] [place] [address] [place] Sodium [Moles/Vol] 134 mmol/L Low 136-144 [facility] Comment on above: Order Comment: Speci men Type: ARTERIAL BLOOD SPECIMENOrdering Facility: [facility] Address: [address] [place] [address] Performed By: #### A LLBG ####[facility] LABIA [id number] [place] [address] [place] Base deficit (BldA) [Moles/Vol] -1 mmol/L Normal -2-0 [facility] Comment on above: Order Comment: Speci men Type: ARTERIAL BLOOD SPECIMENOrdering Facility: [facility] Address: [address] [place] [address] Performed By: #### A LLBG ####[facility] LABCLIA [id number] [place] [address] [place] Calcium.ionized (Bld) [Mass/Vol] 0.89 mmol/L Low 1.08-1.30 [facility] Comment on above: Order Comment: Speci men Type: ARTERIAL BLOOD SPECIMENOrdering Facility: [facility] Address: [address] [place] [address] Performed By: #### A LLBG ####[facility] LABCLIA [id number] [place] [address] [place] Calcium.ionized adjusted to pH 7.4 (BldA) [Moles/Vol] 0.88 mmol/L Low 1.08-1.30 [facility] Comment on above: Order Comment: Speci men Type: ARTERIAL BLOOD SPECIMENOrdering Facility: [facility] Address: [address] [place] [address] Performed By: #### A LLBG ####[facility] LABIA [id number] [place] [address] [place] Carboxyhemoglobin (BldA) [Mass fraction] 1.4 % Normal 0.0-2.0 [facility] Comment on above: Order Comment: Speci men Type: ARTERIAL BLOOD SPECIMENOrdering Facility: [facility] Address: [address] [place] [address] Result Comment: Carb oxyhemoglobin Reference Range for Smokers: 2.0-8.0% Performed By: #### A LLBG ####[facility] LABCLIA [id number] [place] [address] [place] CO2 (Bld) [Partial pressure] 42 mm Hg Normal 36-46 [facility] Comment on above: Order Comment: Speci men Type: ARTERIAL BLOOD SPECIMENOrdering Facility: [facility] Address: [address] [place] [address] Performed By: #### A LLBG ####[facility] LABCLIA [id number] [place] [address] [place] CO2 adjusted to patient's actual temperature (Bld) [Partial pressure] 42 mmHg Normal 36-46 [facility] Comment on above: Order Comment: Speci men Type: ARTERIAL BLOOD SPECIMENOrdering Facility: [facility] Address: [address] [place] [address] Performed By: #### A LLBG ####[facility] LABCLIA [id number] [place] [address] [place] COMMENTS Urgent Value: Ca, Ca(7.4) Normal [facility] Comment on above: Order Comment: Speci men Type: ARTERIAL BLOOD SPECIMENOrdering Facility: [facility] Address: [address] [place] [address] Performed By: #### A LLBG ####[facility] LABCLIA [id number] [place] [address] [place] DATE/TIME NOTIFIED [id number] PM [facility] Comment on above: Order Comment: Speci men Type: ARTERIAL BLOOD SPECIMENOrdering Facility: [facility] Address: [address] [place] [address] Performed By: #### A LLBG ####[facility] LABCLIA [id number] [place] [address] [place] Glucose [Mass/Vol] 122 mg/dL High 60-105 [facility] Comment on above: Order Comment: Speci men Type: ARTERIAL BLOOD SPECIMENOrdering Facility: [facility] Address: [address] [place] [address] Performed By: #### A LLBG ####[facility] LABCLIA [id number] [id number] [address] [place] HCO3 (Bld) [Moles/Vol] 24 mmol/L Normal 22-26 [facility] Comment on above: Order Comment: Speci men Type: ARTERIAL BLOOD SPECIMENOrdering Facility: [facility] Address: [address] [place] [address] Performed By: #### A LLBG ####[facility] LABCLIA [id number] [place] [address] [place] Hematocrit (Bld) [Volume fraction] 29.2 % Low 39.0-51.0 [facility] Comment on above: Order Comment: Speci men Type: ARTERIAL BLOOD SPECIMENOrdering Facility: [facility] Address: [address] [place] [address] Performed By: #### A LLBG ####[facility] LABCLIA [id number] [place] [address] [place] Hemoglobin (Bld) [Mass/Vol] 9.4 g/dL Low 13.0-17.0 [facility] Comment on above: Order Comment: Speci men Type: ARTERIAL BLOOD SPECIMENOrdering Facility: [facility] Address: [address] [place] [address] Performed By: #### A LLBG ####[facility] LABCLIA [id number] [place] [address] [place] Lactate [Moles/Vol] 0.9 mmol/L Normal 0.5-2.2 [facility] Comment on above: Order Comment: Speci men Type: ARTERIAL BLOOD SPECIMENOrdering Facility: [facility] Address: [address] [place] [address] Performed By: #### A LLBG ####[facility] LABCLIA [id number] [place] [address] [place] Methemoglobin (Bld) [Mass fraction] 0.9 % Normal 0.0-1.5 [facility] Comment on above: Order Comment: Speci men Type: ARTERIAL BLOOD SPECIMENOrdering Facility: [facility] Address: [address] [place] [id number] Performed By: #### A LLBG ####[facility] LABCLIA [id number] [place] [id number] [place] NOTIFIED WHOM [facility] SnehaChecoQuincy Normal [facility] Comment on above: Order Comment: Speci men Type: ARTERIAL BLOOD SPECIMENOrdering Facility: [facility] Address: [address] [place] [id number] Performed By: #### A LLBG ####[facility] LABCLIA [id number] [place] [id number] [place] Oxygen (Bld) [Partial pressure] 261 mm Hg High 85-95 [facility] Comment on above: Order Comment: Speci men Type: ARTERIAL BLOOD SPECIMENOrdering Facility: [facility] Address: [address] [place] [id number] Performed By: #### A LLBG ####[facility] LABCLIA [id number] [place] [id number] [place] Oxygen adjusted to patient's actual temperature (Bld) [Partial pressure] 261 mmHg High 85-95 [facility] Comment on above: Order Comment: Speci men Type: ARTERIAL BLOOD SPECIMENOrdering Facility: [facility] Address: [address] [place] [id number] Performed By: #### A LLBG ####[facility] LABCLIA [id number] [address] [address] [place] Oxyhemoglobin (BldA) [Mass fraction] 98 % Normal 95-98 [facility] Comment on above: Order Comment: Speci men Type: ARTERIAL BLOOD SPECIMENOrdering Facility: [facility] Address: [address] [place] [id number] Performed By: #### A LLBG ####[facility] LABCLIA [id number] [place] [id number] [place] pH (Bld) 7.38 [pH] Normal 7.35-7.45 [facility] Comment on above: Order Comment: Speci men Type: ARTERIAL BLOOD SPECIMENOrdering Facility: [facility] Address: [address] [place] [address] Performed By: #### A LLBG ####[facility] LABCLIA [id number] [place] [address] [place] pH adjusted to patient's actual temperature (Bld) 7.38 Normal 7.35-7.45 [facility] Comment on above: Order Comment: Speci men Type: ARTERIAL BLOOD SPECIMENOrdering Facility: [facility] Address: [address] [place] [address] Performed By: #### A LLBG ####[facility] LABCLIA [id number] [place] [address] [place] Potassium [Moles/Vol] 5.8 mmol/L High 3.5-5.0 [facility] Comment on above: Order Comment: Speci men Type: ARTERIAL BLOOD SPECIMENOrdering Facility: [facility] Address: [address] [place] [address] Performed By: #### A LLBG ####[facility] LABCLIA [id number] [place] [address] [place] Sodium [Moles/Vol] 136 mmol/L Normal 136-144 [facility] Comment on above: Order Comment: Speci men Type: ARTERIAL BLOOD SPECIMENOrdering Facility: [facility] Address: [address] [place] [address] Performed By: #### A LLBG ####[facility] LABCLIA [id number] [place] [address] [place] Base deficit (BldA) [Moles/Vol] -1 mmol/L Normal -2-0 [facility] Comment on above: Order Comment: Speci men Type: ARTERIAL BLOOD SPECIMENOrdering Facility: [facility] Address: [address] [place] [address] Performed By: #### A LLBG ####[facility] LABIA [id number] [place] [address] [place] Calcium.ionized (Bld) [Mass/Vol] 0.94 mmol/L Low 1.08-1.30 [facility] Comment on above: Order Comment: Speci men Type: ARTERIAL BLOOD SPECIMENOrdering Facility: [facility] Address: [address] [place] [address] Performed By: #### A LLBG ####[facility] [id number] [place] [address] [place] Calcium.ionized adjusted to pH 7.4 (BldA) [Moles/Vol] 0.93 mmol/L Low 1.08-1.30 [facility] Comment on above: Order Comment: Speci men Type: ARTERIAL BLOOD SPECIMENOrdering Facility: [facility] Address: [address] [place] [address] Performed By: #### A LLBG ####[facility] [id number] [place] [address] [place] Carboxyhemoglobin (BldA) [Mass fraction] 1.8 % Normal 0.0-2.0 [facility] Comment on above: Order Comment: Speci men Type: ARTERIAL BLOOD SPECIMENOrdering Facility: [facility] Address: [address] [place] [address] Result Comment: Carb oxyhemoglobin Reference Range for Smokers: 2.0-8.0% Performed By: #### A LLBG ####[facility] [id number] [place] [address] [place] CO2 (Bld) [Partial pressure] 42 mm Hg Normal 36-46 [facility] Comment on above: Order Comment: Speci men Type: ARTERIAL BLOOD SPECIMENOrdering Facility: [facility] Address: [address] [place] [address] Performed By: #### A LLBG ####[facility] LABCLIA [id number] [place] [address] [place] CO2 adjusted to patient's actual temperature (Bld) [Partial pressure] 42 mmHg Normal 36-46 [facility] Comment on above: Order Comment: Speci men Type: ARTERIAL BLOOD SPECIMENOrdering Facility: [facility] Address: [address] [place] [address] Performed By: #### A LLBG ####[facility] LABCLIA [id number] [place] [address] [place] Glucose [Mass/Vol] 107 mg/dL High 60-105 [facility] Comment on above: Order Comment: Speci men Type: ARTERIAL BLOOD SPECIMENOrdering Facility: [facility] Address: [address] [place] [address] Performed By: #### A LLBG ####[facility] LABCLIA [id number] [place] [address] [place] HCO3 (Bld) [Moles/Vol] 24 mmol/L Normal 22-26 [facility] Comment on above: Order Comment: Speci men Type: ARTERIAL BLOOD SPECIMENOrdering Facility: [facility] Address: [address] [place] [address] Performed By: #### A LLBG ####[facility] LABCLIA [id number] [place] [address] [place] Hematocrit (Bld) [Volume fraction] 29.7 % Low 39.0-51.0 [facility] Comment on above: Order Comment: Speci men Type: ARTERIAL BLOOD SPECIMENOrdering Facility: [facility] Address: [address] [place] [address] Performed By: #### A LLBG ####[facility] LABCLIA [id number] [place] [address] [place] Hemoglobin (Bld) [Mass/Vol] 9.6 g/dL Low 13.0-17.0 [facility] Comment on above: Order Comment: Speci men Type: ARTERIAL BLOOD SPECIMENOrdering Facility: [facility] Address: [address] [place] [address] Performed By: #### A LLBG ####[facility] LABCLIA [id number] [address] [address] [place] Lactate [Moles/Vol] 0.9 mmol/L Normal 0.5-2.2 [facility] Comment on above: Order Comment: Speci men Type: ARTERIAL BLOOD SPECIMENOrdering Facility: [facility] Address: [address] [place] [address] Performed By: #### A LLBG ####[facility] LABIA [id number] [place] [address] [place] Methemoglobin (Bld) [Mass fraction] 0.5 % Normal 0.0-1.5 [facility] Comment on above: Order Comment: Speci men Type: ARTERIAL BLOOD SPECIMENOrdering Facility: [facility] Address: [address] [place] [address] Performed By: #### A LLBG ####[facility] LABCLIA [id number] [place] [address] [place] Oxygen (Bld) [Partial pressure] 327 mm Hg High 85-95 [facility] Comment on above: Order Comment: Speci men Type: ARTERIAL BLOOD SPECIMENOrdering Facility: [facility] Address: [address] [id number] Performed By: #### A LLBG ####[facility] LABCLIA [id number] [place] [address] [place] Oxygen adjusted to patient's actual temperature (Bld) [Partial pressure] 327 mmHg High 85-95 [facility] Comment on above: Order Comment: Speci men Type: ARTERIAL BLOOD SPECIMENOrdering Facility: [facility] Address: [address] [place] [address] Performed By: #### A LLBG ####[facility] LABCLIA [id number] [place] [address] [place] Oxyhemoglobin (BldA) [Mass fraction] 98 % Normal 95-98 [facility] Comment on above: Order Comment: Speci men Type: ARTERIAL BLOOD SPECIMENOrdering Facility: [facility] Address: [address] [place] [address] Performed By: #### A LLBG ####[facility] LABCLIA [id number] [place] [address] [place] pH (Bld) 7.37 [pH] Normal 7.35-7.45 [facility] Comment on above: Order Comment: Speci men Type: ARTERIAL BLOOD SPECIMENOrdering Facility: [facility] Address: [address] [place] [address] Performed By: #### A LLBG ####[facility] LABIA [id number] [place] [address] [place] pH adjusted to patient's actual temperature (Bld) 7.37 Normal 7.35-7.45 [facility] Comment on above: Order Comment: Speci men Type: ARTERIAL BLOOD SPECIMENOrdering Facility: [facility] Address: [address] [place] [address] Performed By: #### A LLBG ####[facility] LABIA [id number] [place] [address] [place] Potassium [Moles/Vol] 5.9 mmol/L High 3.5-5.0 [facility] Comment on above: Order Comment: Speci men Type: ARTERIAL BLOOD SPECIMENOrdering Facility: [facility] Address: [address] [place] [address] Performed By: #### A LLBG ####[facility] LABIA [id number] [place] [address] [place] Sodium [Moles/Vol] 134 mmol/L Low 136-144 [facility] Comment on above: Order Comment: Speci men Type: ARTERIAL BLOOD SPECIMENOrdering Facility: [facility] Address: [address] [place] [address] Performed By: #### A LLBG ####[facility] LABIA [id number] [place] [address] [place] Base deficit (BldA) [Moles/Vol] -2 mmol/L Normal -2-0 [facility] Comment on above: Order Comment: Speci men Type: ARTERIAL BLOOD SPECIMENOrdering Facility: [facility] Address: [address] [place] [address] Performed By: #### A LLBG ####[facility] LABIA [id number] [place] [address] [place] Calcium.ionized (Bld) [Mass/Vol] 1.08 mmol/L Normal 1.08-1.30 [facility] Comment on above: Order Comment: Speci men Type: ARTERIAL BLOOD SPECIMENOrdering Facility: [facility] Address: [address] [place] [address] Performed By: #### A LLBG ####[facility] [id number] [place] [address] [place] Calcium.ionized adjusted to pH 7.4 (BldA) [Moles/Vol] 1.06 mmol/L Low 1.08-1.30 [facility] Comment on above: Order Comment: Speci men Type: ARTERIAL BLOOD SPECIMENOrdering Facility: [facility] Address: [address] [place] [address] Performed By: #### A LLBG ####[facility] LABIA [id number] [place] [address] [place] Carboxyhemoglobin (BldA) [Mass fraction] 1.6 % Normal 0.0-2.0 [facility] Comment on above: Order Comment: Speci men Type: ARTERIAL BLOOD SPECIMENOrdering Facility: [facility] Address: [address] [place] [address] Result Comment: Carb oxyhemoglobin Reference Range for Smokers: 2.0-8.0% Performed By: #### A LLBG ####[facility] LABCLIA [id number] [address] OF [facility] CO2 (Bld) [Partial pressure] 43 mm Hg Normal 36-46 [facility] Comment on above: Order Comment: Speci men Type: ARTERIAL BLOOD SPECIMENOrdering Facility: [facility] Address: [address] [place] [address] Performed By: #### A LLBG ####[facility] LABCLIA [id number] [address] CO2 adjusted to patient's actual temperature (Bld) [Partial pressure] 43 mmHg Normal 36-46 [facility] Comment on above: Order Comment: Speci men Type: ARTERIAL BLOOD SPECIMENOrdering Facility: [facility] Address: [address] [place] [address] Performed By: #### A LLBG ####[facility] LABCLIA [id number] [address] [place] COMMENTS Critical Value: K Normal [facility] Comment on above: Order Comment: Speci men Type: ARTERIAL BLOOD SPECIMENOrdering Facility: [facility] Address: [address] [place] [address] Performed By: #### A LLBG ####[facility] LABCLIA [id number] [address] [place] DATE/TIME NOTIFIED [id number] PM Normal C [facility] Comment on above: Order Comment: Speci men Type: ARTERIAL BLOOD SPECIMENOrdering Facility: [facility] Address: [address] [place] [address] Performed By: #### A LLBG ####[facility] LABCLIA [id number] [id number] [address] [place] Glucose [Mass/Vol] 124 mg/dL High 60-105 [facility] Comment on above: Order Comment: Speci men Type: ARTERIAL BLOOD SPECIMENOrdering Facility: [facility] Address: [address] [place] [address] Performed By: #### A LLBG ####[facility] LABCLIA [id number] [place] [address] [place] HCO3 (Bld) [Moles/Vol] 23 mmol/L Normal 22-26 [facility] Comment on above: Order Comment: Speci men Type: ARTERIAL BLOOD SPECIMENOrdering Facility: [facility] Address: [address] [place] [address] Performed By: #### A LLBG ####[facility] LABCLIA [id number] [place] [address] [place] Hematocrit (Bld) [Volume fraction] 31.4 % Low 39.0-51.0 [facility] Comment on above: Order Comment: Speci men Type: ARTERIAL BLOOD SPECIMENOrdering Facility: [facility] Address: [address] [place] [address] Performed By: #### A LLBG ####[facility] LABCLIA [id number] [place] [address] [place] Hemoglobin (Bld) [Mass/Vol] 10.2 g/dL Low 13.0-17.0 [facility] Comment on above: Order Comment: Speci men Type: ARTERIAL BLOOD SPECIMENOrdering Facility: [facility] Address: [address] [place] [address] Performed By: #### A LLBG ####[facility] LABCLIA [id number] [place] [address] [place] Lactate [Moles/Vol] 1.3 mmol/L Normal 0.5-2.2 [facility] Comment on above: Order Comment: Speci men Type: ARTERIAL BLOOD SPECIMENOrdering Facility: [facility] Address: [address] [id number] Performed By: #### A LLBG ####[facility] LABCLIA [id number] [place] [id number] [place] Methemoglobin (Bld) [Mass fraction] 1.4 % Normal 0.0-1.5 [facility] Comment on above: Order Comment: Speci men Type: ARTERIAL BLOOD SPECIMENOrdering Facility: [facility] Address: [address] [place], [place] [address] Performed By: #### A LLBG ####[facility] LABCLIA [id number] [place] [address] [place] NOTIFIED WHOM Everton Fung RN ORSepideh Arrieta Normal [facility] Comment on above: Order Comment: Speci men Type: ARTERIAL BLOOD SPECIMENOrdering Facility: [facility] Address: [address] [place] [address] Performed By: #### A LLBG ####[facility] LABCLIA [id number] [address] [address] [place] Oxygen (Bld) [Partial pressure] 324 mm Hg High 85-95 [facility] Comment on above: Order Comment: Speci men Type: ARTERIAL BLOOD SPECIMENOrdering Facility: [facility] Address: [address] [place], [place] [address] Performed By: #### A LLBG ####[facility] LABCLIA [id number] [address] [address] [place] Oxygen adjusted to patient's actual temperature (Bld) [Partial pressure] 324 mmHg High 85-95 [facility] Comment on above: Order Comment: Speci men Type: ARTERIAL BLOOD SPECIMENOrdering Facility: [facility] Address: [address] [place], [place] [address] Performed By: #### A LLBG ####[facility] LABCLIA [id number] [address] [address] [place] Oxyhemoglobin (BldA) [Mass fraction] 97 % Normal 95-98 [facility] Comment on above: Order Comment: Speci men Type: ARTERIAL BLOOD SPECIMENOrdering Facility: [facility] Address: [address] [place] [address] Performed By: #### A LLBG ####[facility] LABCLIA [id number] [place] [address] [place] pH (Bld) 7.35 [pH] Normal 7.35-7.45 [facility] Comment on above: Order Comment: Speci men Type: ARTERIAL BLOOD SPECIMENOrdering Facility: [facility] Address: [address] [place] [address] Performed By: #### A LLBG ####[facility] LABCLIA [id number] [place] [address] [place] pH adjusted to patient's actual temperature (Bld) 7.35 Normal 7.35-7.45 [facility] Comment on above: Order Comment: Speci men Type: ARTERIAL BLOOD SPECIMENOrdering Facility: [facility] Address: [address] [place] [address] Performed By: #### A LLBG ####[facility] LABCLIA [id number] [place] [address] [place] Potassium [Moles/Vol] 7.2 mmol/L Critically high 3.5-5.0 [facility] Comment on above: Order Comment: Speci men Type: ARTERIAL BLOOD SPECIMENOrdering Facility: [facility] Address: [address] [place] [address] Performed By: #### A LLBG ####[facility] LABCLIA [id number] [place] [address] [place] Sodium [Moles/Vol] 126 mmol/L Low 136-144 [facility] Comment on above: Order Comment: Speci men Type: ARTERIAL BLOOD SPECIMENOrdering Facility: [facility] Address: [address] [place] [address] Performed By: #### A LLBG ####[facility] [id number] [place] [address] [place] Base deficit (BldA) [Moles/Vol] -4 mmol/L Low -2-0 [facility] Comment on above: Order Comment: Speci men Type: ARTERIAL BLOOD SPECIMENOrdering Facility: [facility] Address: [address] [place] [address] Performed By: #### A LLBG ####[facility] [id number] [place] [address] [place] Calcium.ionized (Bld) [Mass/Vol] 1.28 mmol/L Normal 1.08-1.30 [facility] Comment on above: Order Comment: Speci men Type: ARTERIAL BLOOD SPECIMENOrdering Facility: [facility] Address: [address] [place] [address] Performed By: #### A LLBG ####[facility] [id number] [place] [address] [place] Calcium.ionized adjusted to pH 7.4 (BldA) [Moles/Vol] 1.23 mmol/L Normal 1.08-1.30 [facility] Comment on above: Order Comment: Speci men Type: ARTERIAL BLOOD SPECIMENOrdering Facility: [facility] Address: [address] [place] [address] Performed By: #### A LLBG ####[facility] [id number] [place] [address] [place] Carboxyhemoglobin (BldA) [Mass fraction] 1.0 % Normal 0.0-2.0 [facility] Comment on above: Order Comment: Speci men Type: ARTERIAL BLOOD SPECIMENOrdering Facility: [facility] Address: [address] [place] [address] Result Comment: Carb oxyhemoglobin Reference Range for Smokers: 2.0-8.0% Performed By: #### A LLBG ####[facility] LABCLIA [id number] [place] [address] [place] CO2 (Bld) [Partial pressure] 42 mm Hg Normal 36-46 [facility] Comment on above: Order Comment: Speci men Type: ARTERIAL BLOOD SPECIMENOrdering Facility: [facility] Address: [address] [place] [address] Performed By: #### A LLBG ####[facility] LABCLIA [id number] [place] [address] [place] CO2 adjusted to patient's actual temperature (Bld) [Partial pressure] 42 mmHg Normal 36-46 [facility] Comment on above: Order Comment: Speci men Type: ARTERIAL BLOOD SPECIMENOrdering Facility: [facility] Address: [address] [place] [address] Performed By: #### A LLBG ####[facility] LABCLIA [id number] [place] [address] [place] Glucose [Mass/Vol] 111 mg/dL High 60-105 [facility] Comment on above: Order Comment: Speci men Type: ARTERIAL BLOOD SPECIMENOrdering Facility: [facility] Address: [address] [place] [address] Performed By: #### A LLBG ####[facility] LABCLIA [id number] [place] [address] [place] HCO3 (Bld) [Moles/Vol] 22 mmol/L Normal 22-26 [facility] Comment on above: Order Comment: Speci men Type: ARTERIAL BLOOD SPECIMENOrdering Facility: [facility] Address: [address] [place] [address] Performed By: #### A LLBG ####[facility] LABCLIA [id number] [place] [address] [place] Hematocrit (Bld) [Volume fraction] 48.1 % Normal 39.0-51.0 [facility] Comment on above: Order Comment: Speci men Type: ARTERIAL BLOOD SPECIMENOrdering Facility: [facility] Address: [address] [place] [address] Performed By: #### A LLBG ####[facility] LABIA [id number] [place] [address] [place] Hemoglobin (Bld) [Mass/Vol] 15.7 g/dL Normal 13.0-17.0 [facility] Comment on above: Order Comment: Speci men Type: ARTERIAL BLOOD SPECIMENOrdering Facility: [facility] Address: [address] [place] [address] Performed By: #### A LLBG ####[facility] LABIA [id number] [place] [address] [place] Lactate [Moles/Vol] 0.7 mmol/L Normal 0.5-2.2 [facility] Comment on above: Order Comment: Speci men Type: ARTERIAL BLOOD SPECIMENOrdering Facility: [facility] Address: [address] [place] [address] Performed By: #### A LLBG ####[facility] LABIA [id number] [place] [address] [place] Methemoglobin (Bld) [Mass fraction] 1.2 % Normal 0.0-1.5 [facility] Comment on above: Order Comment: Speci men Type: ARTERIAL BLOOD SPECIMENOrdering Facility: [facility] Address: [address] [place] [address] Performed By: #### A LLBG ####[facility] LABIA [id number] [place] [address] [place] Oxygen (Bld) [Partial pressure] 100 mm Hg High 85-95 [facility] Comment on above: Order Comment: Speci men Type: ARTERIAL BLOOD SPECIMENOrdering Facility: [facility] Address: [address] [place] [address] Performed By: #### A LLBG ####[facility] LABCLIA [id number] [place] [address] [place] Oxygen adjusted to patient's actual temperature (Bld) [Partial pressure] 100 mmHg High 85-95 [facility] Comment on above: Order Comment: Speci men Type: ARTERIAL BLOOD SPECIMENOrdering Facility: [facility] Address: [address] [place] [address] Performed By: #### A LLBG ####[facility] LABIA [id number] [place] [address] [place] Oxyhemoglobin (BldA) [Mass fraction] 95 % Normal 95-98 [facility] Comment on above: Order Comment: Speci men Type: ARTERIAL BLOOD SPECIMENOrdering Facility: [facility] Address: [address] [place] [address] Performed By: #### A LLBG ####[facility] LABIA [id number] [place] [address] [place] pH (Bld) 7.33 [pH] Low 7.35-7.45 [facility] Comment on above: Order Comment: Speci men Type: ARTERIAL BLOOD SPECIMENOrdering Facility: [facility] Address: [address] [place] [address] Performed By: #### A LLBG ####[facility] LABIA [id number] [place] [address] [place] pH adjusted to patient's actual temperature (Bld) 7.33 Low 7.35-7.45 [facility] Comment on above: Order Comment: Speci men Type: ARTERIAL BLOOD SPECIMENOrdering Facility: [facility] Address: [address] [place] [address] Performed By: #### A LLBG ####[facility] LABIA [id number] [place] [address] [place] Potassium [Moles/Vol] 4.9 mmol/L Normal 3.5-5.0 [facility] Comment on above: Order Comment: Speci men Type: ARTERIAL BLOOD SPECIMENOrdering Facility: [facility] Address: [address] [place] [address] Performed By: #### A LLBG ####[facility] LABCLIA [id number] [place] [id number] [place] Sodium [Moles/Vol] 133 mmol/L Low 136-144 [facility] Comment on above: Order Comment: Speci men Type: ARTERIAL BLOOD SPECIMENOrdering Facility: [facility] Address: [address] [place] [address] Performed By: #### A LLBG ####[facility] LABCLIA [id number] [place] [address] [place] Basic metabolic 2000 panelon 06-18-2024 Anion gap [Moles/Vol] 14 mmol/L Normal 8-15 [facility] Comment on above: Order Comment: Speci men Type: BLOOD SPECIMENOrdering Facility: [facility] Address: [address] [place] [address] Performed By: #### 2 4321-2, , 2776- ####[facility] LABCLIA [id number] [place] [address] [place] Calcium [Mass/Vol] 9.6 mg/dL Normal 8.5-10.2 [facility] Comment on above: Order Comment: Speci men Type: BLOOD SPECIMENOrdering Facility: [facility] Address: [address] [place] [address] Performed By: #### 2 4321-2, 68131-6, 2777- ####[facility] LABCLIA [id number] [place] [id number] [place] Chloride [Moles/Vol] 102 mmol/L Normal 98-107 [facility] Comment on above: Order Comment: Speci men Type: BLOOD SPECIMENOrdering Facility: [facility] Address: [address] [place] [address] Performed By: #### 2 4321-2, , 2776-11 ####[facility] LABIA [id number] [place] [address] [place] CO2 [Moles/Vol] 20 mmol/L Low 22-30 [facility] Comment on above: Order Comment: Speci men Type: BLOOD SPECIMENOrdering Facility: [facility] Address: [address] [place] [address] Performed By: #### 2 4321-2, , 2776-11 ####[facility] [id number] [place] [address] [place] Creatinine [Mass/Vol] 1.55 mg/dL High 0.73-1.22 [facility] Comment on above: Order Comment: Speci men Type: BLOOD SPECIMENOrdering Facility: [facility] Address: [address] [place] [address] Performed By: #### 2 4321-2, , 2776-11 ####[facility] [id number] [place] [address] [place] Creatinine and Glomerular filtration rate.predicted panel (S/P/Bld) 46 mL/min/1.73m??? Low >=60 [facility] Comment on above: Order Comment: Speci men Type: BLOOD SPECIMENOrdering Facility: [facility] Address: [address] [place] [address] Result Comment: Annalisa mated Glomerular Filtration Rate (eGFR) is calculated using the 2020 CKD-EPI creatinine equation. This equation utilizes serum creatinine, sex, and age as parameters. The creatinine assay has traceable calibration to isotope dilution-mass spectrometry. Refer to KDIGO guidelines for clinical interpretation. In patients with unstable renal function, e.g. those with acute kidney injury, the eGFR may not accurately reflect actual GFR. Performed By: #### 2 4321-2, , 2776-11 ####[facility] LABCLIA [id number] [address] [address] [place] Glucose [Mass/Vol] 94 mg/dL Normal 74-99 [facility] Comment on above: Order Comment: Speci men Type: BLOOD SPECIMENOrdering Facility: [facility] Address: [address] [place] [address] Result Comment: The [place] Diabetes [employer] (ADA) provides guidance for cutoff values for fasting glucose and random glucose. The ADA defines fasting as no caloric intake for at least 8 hours. Fasting plasma glucose results between 100 to 125 mg/dL indicate increased risk for diabetes (prediabetes).Fasting plasma glucose results greater than or equal to 126 mg/dL meet the criteria for diagnosis of diabetes. In the absence of unequivocal hyperglycemia, results should be confirmed by repeat testing. In a patient with classic symptoms of hyperglycemia or hyperglycemic crisis, random plasma glucose results greater than or equal to 200 mg/dL meet the criteria for diagnosis of diabetes.Reference: Standards of Medical Care in Diabetes 2016, [place] [employer]. Diabetes Care. 2016.39(Suppl 1). Performed By: #### 2 4321-2, , 2776-11 ####[facility] LABIA [id number] [place] [address] [place] Potassium [Moles/Vol] 5.3 mmol/L High 3.7-5.1 [facility] Comment on above: Order Comment: Speci men Type: BLOOD SPECIMENOrdering Facility: [facility] Address: [address] [place] [address] Performed By: #### 2 4321-2, , 2776-11 ####[facility] LABIA [id number] [place] [address] [place] Sodium [Moles/Vol] 136 mmol/L Normal 136-144 [facility] Comment on above: Order Comment: Speci men Type: BLOOD SPECIMENOrdering Facility: [facility] Address: [address] [place] [address] Performed By: #### 2 4321-2, , 2776-11 ####[facility] LABCLIA [id number] [address] [address] [place] Urea nitrogen [Mass/Vol] 31 mg/dL High 9-24 [facility] Comment on above: Order Comment: Speci men Type: BLOOD SPECIMENOrdering Facility: [facility] Address: [address] [place], [place] [address] Performed By: #### 2 4321-2, 39339-8, 2776-11 ####[facility] LABCLIA [id number] [address] [address] [place] Anion gap [Moles/Vol] 12 mmol/L Normal 8-15 [facility] Comment on above: Order Comment: Speci men Type: BLOOD SPECIMENOrdering Facility: [facility] Address: [address] [place] [address] Performed By: #### 1 9123-9, 2776-11, 72743-0 ####[facility] LABCLIA [id number] [address] [address] [place] Calcium [Mass/Vol] 9.5 mg/dL Normal 8.5-10.2 [facility] Comment on above: Order Comment: Speci men Type: BLOOD SPECIMENOrdering Facility: [facility] Address: [address] [place], [place] [address] Performed By: #### 1 23-9, 2776-11, 39419-4 ####[facility] LABCLIA [id number] [address] [address] [place] Chloride [Moles/Vol] 103 mmol/L Normal 98-107 [facility] Comment on above: Order Comment: Speci men Type: BLOOD SPECIMENOrdering Facility: [facility] Address: [address] [place], [place] [address] Performed By: #### 1 9123-9, 27705-11, 06109-1 ####[facility] LABCLIA [id number] [place] [address] [place] CO2 [Moles/Vol] 20 mmol/L Low 22-30 [facility] Comment on above: Order Comment: Speci men Type: BLOOD SPECIMENOrdering Facility: [facility] Address: [address] [place] [address] Performed By: #### 1 9123-9, 2777-, 53397-7 ####[facility] LABCLIA [id number] [place] [address] [place] Creatinine [Mass/Vol] 1.61 mg/dL High 0.73-1.22 [facility] Comment on above: Order Comment: Speci men Type: BLOOD SPECIMENOrdering Facility: [facility] Address: [address] [place] [address] Performed By: #### 1 9123-9, 2777, ####[facility] [id number] [place] [address] [place] Creatinine and Glomerular filtration rate.predicted panel (S/P/Bld) 44 mL/min/1.73m??? Low >=60 [facility] Comment on above: Order Comment: Speci kwasi Type: BLOOD SPECIMENOrdering Facility: [facility] Address: [address] [place] [address] Result Comment: Annalisa mated Glomerular Filtration Rate (eGFR) is calculated using the 2020 CKD-EPI creatinine equation. This equation utilizes serum creatinine, sex, and age as parameters. The creatinine assay has traceable calibration to isotope dilution-mass spectrometry. Refer to KDIGO guidelines for clinical interpretation. In patients with unstable renal function, e.g. those with acute kidney injury, the eGFR may not accurately reflect actual GFR. Performed By: #### 1 9123-9, 2777-, 27941-0 ####[facility] LABCLIA [id number] [place] [id number] [place] Glucose [Mass/Vol] 90 mg/dL Normal 74-99 [facility] Comment on above: Order Comment: Speci men Type: BLOOD SPECIMENOrdering Facility: [facility] Address: [address] [place] [address] Result Comment: The [place] Diabetes Association (ADA) provides guidance for cutoff values for fasting glucose and random glucose. The ADA defines fasting as no caloric intake for at least 8 hours. Fasting plasma glucose results between 100 to 125 mg/dL indicate increased risk for diabetes (prediabetes).Fasting plasma glucose results greater than or equal to 126 mg/dL meet the criteria for diagnosis of diabetes. In the absence of unequivocal hyperglycemia, results should be confirmed by repeat testing. In a patient with classic symptoms of hyperglycemia or hyperglycemic crisis, random plasma glucose results greater than or equal to 200 mg/dL meet the criteria for diagnosis of diabetes.Reference: Standards of Medical Care in Diabetes 2016, [place] [employer]. Diabetes Care. 2016.39(Suppl 1). Performed By: #### 1 9123-9, 2777-1, 52461-8 ####[facility] LABCLIA [id number] [place] [address] [place] Potassium [Moles/Vol] 4.8 mmol/L Normal 3.7-5.1 [facility] Comment on above: Order Comment: Bobby villalpando Type: BLOOD SPECIMENOrdering Facility: [facility] Address: [address] [place] [address] Performed By: #### 1 9123-9, 2777-1, 85340-1 ####[facility] LABCLIA [id number] [place] [address] [place] Sodium [Moles/Vol] 135 mmol/L Low 136-144 [facility] Comment on above: Order Comment: Chandanai men Type: BLOOD SPECIMENOrdering Facility: [facility] Address: [address] [place] [address] Performed By: #### 1 9123-9, 2777-1, 99598-9 ####[facility] LABCLIA [id number] [place] [address] [place] Urea nitrogen [Mass/Vol] 35 mg/dL High 9-24 [facility] Comment on above: Order Comment: Speci men Type: BLOOD SPECIMENOrdering Facility: [facility] Address: [address] [place] [address] Performed By: #### 1 9123-9, 2777-1, 66971-1 ####[facility] LABCLIA [id number] [place] [address] [place] CASE MANAGEMon 06-18-2024 CASE MANAGEM Normal [facility] CBC panel Auto (Bld)on 06-18 Erythrocyte distribution width (RBC) [Ratio] 14.3 % Normal 11.5-15.0 [facility] Comment on above: Order Comment: Speci men Type: BLOOD SPECIMENOrdering Facility: [facility] Address: [address] [place] [address] Performed By: #### 5 8410-2 ####[facility] LABCLIA [id number] [address] [place] Hematocrit (Bld) [Volume fraction] 31.6 % Low 39.0-51.0 [facility] Comment on above: Order Comment: Speci men Type: BLOOD SPECIMENOrdering Facility: [facility] Address: [address] [place] [address] Performed By: #### 5 8410-2 ####[facility] LABCLIA [id number] [place] [address] [place] MCH (RBC) [Entitic mass] 29.9 pg Normal 26.0-34.0 [facility] Comment on above: Order Comment: Speci men Type: BLOOD SPECIMENOrdering Facility: [facility] Address: [address] [place] [address] Performed By: #### 5 8410-2 ####[facility] LABCLIA [id number] [place] [address] [place] MCHC (RBC) [Mass/Vol] 32.6 g/dL Normal 30.5-36.0 [facility] Comment on above: Order Comment: Speci men Type: BLOOD SPECIMENOrdering Facility: [facility] Address: [address] [place] [address] Performed By: #### 5 8410-2 ####[facility] [id number] [place] [address] [place] MCV (RBC) [Entitic vol] 91.9 fL Normal 80.0-100.0 [facility] Comment on above: Order Comment: Speci men Type: BLOOD SPECIMENOrdering Facility: [facility] Address: [address] [place] [address] Performed By: #### 5 8410-2 ####[facility] [id number] [place] [address] [place] Nucleated RBC (Bld) [#/Vol] 10*3/uL Normal <0.01 [facility] Comment on above: Order Comment: Speci men Type: BLOOD SPECIMENOrdering Facility: [facility] Address: [address] [place] [address] Performed By: #### 5 8410-2 ####[facility] [id number] [place] [address] [place] Platelet mean volume (Bld) [Entitic vol] 10.4 fL Normal 9.0-12.7 [facility] Comment on above: Order Comment: Speci men Type: BLOOD SPECIMENOrdering Facility: [facility] Address: [address] [place] [address] Performed By: #### 5 8410-2 ####[facility] [id number] [place] [address] [place] Platelets (Bld) [#/Vol] 193 10*3/uL Normal 150-400 [facility] Comment on above: Order Comment: Speci men Type: BLOOD SPECIMENOrdering Facility: [facility] Address: [address] [place] [address] Performed By: #### 5 8410-2 ####[facility] LABCLIA [id number] [place] [address] [place] RBC (Bld) [#/Vol] 3.44 10*6/uL Low 4.20-6.00 [facility] Comment on above: Order Comment: Speci men Type: BLOOD SPECIMENOrdering Facility: [facility] Address: [address] [place] [address] Performed By: #### 5 8410-2 ####[facility] LABIA [id number] [place] [address] [place] WBC (Bld) [#/Vol] 20.68 10*3/uL High 3.70-11.00 [facility] Comment on above: Order Comment: Speci men Type: BLOOD SPECIMENOrdering Facility: [facility] Address: [address] [place] [address] Performed By: #### 5 8410-2 ####[facility] LABIA [id number] [place] [address] [place] Erythrocyte distribution width (RBC) [Ratio] 14.2 % Normal 11.5-15.0 [facility] Comment on above: Order Comment: Speci men Type: BLOOD SPECIMENOrdering Facility: [facility] Address: [address] [place] [address] Performed By: #### 5 8410-2 ####[facility] LABIA [id number] [place] [address] [place] Hematocrit (Bld) [Volume fraction] 48.7 % Normal 39.0-51.0 [facility] Comment on above: Order Comment: Speci men Type: BLOOD SPECIMENOrdering Facility: [facility] Address: [address] [place] [address] Performed By: #### 5 8410-2 ####[facility] LABCLIA [id number] [place] [address] [place] Hemoglobin (Bld) [Mass/Vol] 16.0 g/dL Normal 13.0-17.0 [facility] Comment on above: Order Comment: Speci men Type: BLOOD SPECIMENOrdering Facility: [facility] Address: [address] [place] [address] Performed By: #### 5 8410-2 ####[facility] LABCLIA [id number] [place] [address] [place] MCH (RBC) [Entitic mass] 30.0 pg Normal 26.0-34.0 [facility] Comment on above: Order Comment: Speci men Type: BLOOD SPECIMENOrdering Facility: [facility] Address: [address] [place] [address] Performed By: #### 5 8410-2 ####[facility] LABCLIA [id number] [place] [address] [place] MCHC (RBC) [Mass/Vol] 32.9 g/dL Normal 30.5-36.0 [facility] Comment on above: Order Comment: Speci men Type: BLOOD SPECIMENOrdering Facility: [facility] Address: [address] [place] [address] Performed By: #### 5 8410-2 ####[facility] LABIA [id number] [place] [address] [place] MCV (RBC) [Entitic vol] 91.2 fL Normal 80.0-100.0 [facility] Comment on above: Order Comment: Speci men Type: BLOOD SPECIMENOrdering Facility: [facility] Address: [address] [place] [address] Performed By: #### 5 8410-2 ####[facility] LABCLIA [id number] [place] [address] [place] Nucleated RBC (Bld) [#/Vol] 10*3/uL Normal <0.01 [facility] Comment on above: Order Comment: Speci men Type: BLOOD SPECIMENOrdering Facility: [facility] Address: [address] [place] [address] Performed By: #### 5 8410-2 ####[facility] LABIA [id number] [place] [address] [place] Platelet mean volume (Bld) [Entitic vol] 10.4 fL Normal 9.0-12.7 [facility] Comment on above: Order Comment: Speci men Type: BLOOD SPECIMENOrdering Facility: [facility] Address: [address] [place] [address] Performed By: #### 5 8410-2 ####[facility] LABIA [id number] [place] [address] [place] Platelets (Bld) [#/Vol] 168 10*3/uL Normal 150-400 [facility] Comment on above: Order Comment: Speci men Type: BLOOD SPECIMENOrdering Facility: [facility] Address: [address] [place] [address] Performed By: #### 5 8410-2 ####[facility] LABIA [id number] [place] [address] [place] RBC (Bld) [#/Vol] 5.34 10*6/uL Normal 4.20-6.00 [facility] Comment on above: Order Comment: Speci men Type: BLOOD SPECIMENOrdering Facility: [facility] Address: [address] [place] [address] Performed By: #### 5 8410-2 ####[facility] LABIA [id number] [place] [address] [place] WBC (Bld) [#/Vol] 8.84 10*3/uL Normal 3.70-11.00 [facility] Comment on above: Order Comment: Speci men Type: BLOOD SPECIMENOrdering Facility: [facility] Address: [address] [place] [address] Performed By: #### 5 8410-2 ####[facility] LABCLIA [id number] [place] [address] [place] Erythrocyte distribution width (RBC) [Ratio] 14.2 % Normal 11.5-15.0 [facility] Comment on above: Order Comment: Speci men Type: BLOOD SPECIMENOrdering Facility: [facility] Address: [address] [place] [address] Performed By: #### 5 8410-2 ####[facility] LABCLIA [id number] [place] [address] [place] Hematocrit (Bld) [Volume fraction] 45.8 % Normal 39.0-51.0 [facility] Comment on above: Order Comment: Speci men Type: BLOOD SPECIMENOrdering Facility: [facility] Address: [address] [place] [address] Performed By: #### 5 8410-2 ####[facility] LABIA [id number] [place] [address] [place] Hemoglobin (Bld) [Mass/Vol] 14.9 g/dL Normal 13.0-17.0 [facility] Comment on above: Order Comment: Speci men Type: BLOOD SPECIMENOrdering Facility: [facility] Address: [address] [place] [address] Performed By: #### 5 8410-2 ####[facility] LABIA [id number] [place] [address] [place] MCH (RBC) [Entitic mass] 29.3 pg Normal 26.0-34.0 [facility] Comment on above: Order Comment: Speci men Type: BLOOD SPECIMENOrdering Facility: [facility] Address: [address] [place] [address] Performed By: #### 5 8410-2 ####[facility] LABIA [id number] [place] [address] [place] MCHC (RBC) [Mass/Vol] 32.5 g/dL Normal 30.5-36.0 [facility] Comment on above: Order Comment: Speci men Type: BLOOD SPECIMENOrdering Facility: [facility] Address: [address] [place] [address] Performed By: #### 5 8410-2 ####[facility] LABCLIA [id number] [place] [address] [place] MCV (RBC) [Entitic vol] 90.2 fL Normal 80.0-100.0 [facility] Comment on above: Order Comment: Speci men Type: BLOOD SPECIMENOrdering Facility: [facility] Address: [address] [place] [address] Performed By: #### 5 8410-2 ####[facility] LABCLIA [id number] [place] [address] [place] Nucleated RBC (Bld) [#/Vol] 10*3/uL Normal <0.01 [facility] Comment on above: Order Comment: Speci men Type: BLOOD SPECIMENOrdering Facility: [facility] Address: [address] [place] [address] Performed By: #### 5 8410-2 ####[facility] LABCLIA [id number] [place] [address] [place] Platelet mean volume (Bld) [Entitic vol] 10.8 fL Normal 9.0-12.7 [facility] Comment on above: Order Comment: Speci men Type: BLOOD SPECIMENOrdering Facility: [facility] Address: [address] [place] [address] Performed By: #### 5 8410-2 ####[facility] LABCLIA [id number] [place] [address] [place] Platelets (Bld) [#/Vol] 151 10*3/uL Normal 150-400 [facility] Comment on above: Order Comment: Speci men Type: BLOOD SPECIMENOrdering Facility: [facility] Address: [address] [place] [address] Performed By: #### 5 8410-2 ####[facility] LABCLIA [id number] [place] [address] [place] RBC (Bld) [#/Vol] 5.08 10*6/uL Normal 4.20-6.00 [facility] Comment on above: Order Comment: Speci men Type: BLOOD SPECIMENOrdering Facility: [facility] Address: [address] [place] [address] Performed By: #### 5 8410-2 ####[facility] LABIA [id number] [place] [address] [place] WBC (Bld) [#/Vol] 8.62 10*3/uL Normal 3.70-11.00 [facility] Comment on above: Order Comment: Speci men Type: BLOOD SPECIMENOrdering Facility: [facility] Address: [address] [place] [address] Performed By: #### 5 8410-2 ####[facility] LABIA [id number] [place] [address] [place] [id number] 06-18-2024 ECG01 Normal [facility] Fibrinogen PPP-mCncon 2023 Fibrinogen Coag (PPP) [Mass/Vol] 238 mg/dL Normal 200-400 [facility] Comment on above: Order Comment: Speci men Type: BLOOD SPECIMENOrdering Facility: [facility] Address: [address] [place] [address] Performed By: #### 3 255-7, 11540-4, 30337-2 ####[facility] LABCLIA [id number] [place] [address] [place] Fibrinogen Coag (PPP) [Mass/Vol] 185 mg/dL Low 200-400 [facility] Comment on above: Order Comment: Speci men Type: BLOOD SPECIMENOrdering Facility: [facility] Address: [address] [place] [address] Performed By: #### 3 255-7, 76985-6, 15612-3 ####[facility] LABCLIA [id number] [place] [address] [place] Gas and Carbon monoxide pane l (BldV)on 06-18-2024 BASE DEFICIT, VENOUS -6 mmol/L Low -2-0 [facility] Comment on above: Order Comment: Speci men Type: VENOUS BLOOD SPECIMENOrdering Facility: [facility] Address: [address] [place] [address] Performed By: #### 2 4344-4 ####[facility] LABIA [id number] [place] [address] [place] Calcium.ionized (Bld) [Mass/Vol] 1.15 mmol/L Normal 1.08-1.30 [facility] Comment on above: Order Comment: Speci men Type: VENOUS BLOOD SPECIMENOrdering Facility: [facility] Address: [address] [place] [address] Performed By: #### 2 4344-4 ####[facility] LABIA [id number] [place] [address] [place] Calcium.ionized adjusted to pH 7.4 (BldA) [Moles/Vol] 1.06 mmol/L Low 1.08-1.30 [facility] Comment on above: Order Comment: Speci men Type: VENOUS BLOOD SPECIMENOrdering Facility: [facility] Address: [address] [place] [address] Performed By: #### 2 4344-4 ####[facility] LABIA [id number] [place] [address] [place] Carboxyhemoglobin (BldV) [Mass fraction] 1.1 % Normal 0.0-2.0 [facility] Comment on above: Order Comment: Speci men Type: VENOUS BLOOD SPECIMENOrdering Facility: [facility] Address: [address] [place] [address] Result Comment: Carb oxyhemoglobin Reference Range for Smokers: 2.0-8.0% Performed By: #### 2 4344-4 ####[facility] LABCLIA [id number] [place] [address] [place] CO2 (BldV) [Partial pressure] 49 mm[Hg] Normal 42-55 [facility] Comment on above: Order Comment: Speci men Type: VENOUS BLOOD SPECIMENOrdering Facility: [facility] Address: [address] [place] [address] Performed By: #### 2 4344-4 ####[facility] LABCLIA [id number] [place] [address] [place] Glucose [Mass/Vol] 202 mg/dL High 60-105 [facility] Comment on above: Order Comment: Speci men Type: VENOUS BLOOD SPECIMENOrdering Facility: [facility] Address: [address] [place] [address] Performed By: #### 2 4344-4 ####[facility] LABCLIA [id number] [place] [address] [place] HCO3 (Bld) [Moles/Vol] 21 mmol/L Low 24-28 [facility] Comment on above: Order Comment: Speci men Type: VENOUS BLOOD SPECIMENOrdering Facility: [facility] Address: [address] [place] [address] Performed By: #### 2 4344-4 ####[facility] LABCLIA [id number] [place] [address] [place] Hematocrit (Bld) [Volume fraction] 31.7 % Low 39.0-51.0 [facility] Comment on above: Order Comment: Speci men Type: VENOUS BLOOD SPECIMENOrdering Facility: [facility] Address: [address] [place] [address] Performed By: #### 2 4344-4 ####[facility] LABCLIA [id number] [place] [address] [place] Lactate [Moles/Vol] 7.3 mmol/L High 0.5-2.2 [facility] Comment on above: Order Comment: Speci men Type: VENOUS BLOOD SPECIMENOrdering Facility: [facility] Address: [address] [place] [address] Performed By: #### 2 4344-4 ####[facility] LABIA [id number] [place] [address] [place] Methemoglobin (Bld) [Mass fraction] 0.6 % Normal 0.0-1.5 [facility] Comment on above: Order Comment: Speci men Type: VENOUS BLOOD SPECIMENOrdering Facility: [facility] Address: [address] [place] [address] Performed By: #### 2 4344-4 ####[facility] LABIA [id number] [place] [address] [place] Oxygen (BldV) [Partial pressure] 39 mm[Hg] Normal 35-45 [facility] Comment on above: Order Comment: Speci men Type: VENOUS BLOOD SPECIMENOrdering Facility: [facility] Address: [address] [place] [address] Performed By: #### 2 4344-4 ####[facility] LABIA [id number] [place] [address] [place] Oxygen saturation in Venous blood 60 % Normal 60-85 [facility] Comment on above: Order Comment: Speci men Type: VENOUS BLOOD SPECIMENOrdering Facility: [facility] Address: [address] [place], [place] [address] Performed By: #### 2 4344-4 ####[facility] LABCLIA [id number] [address] [address] [place] Oxyhemoglobin (BldV) [Mass fraction] 59 % Low 60-85 [facility] Comment on above: Order Comment: Speci men Type: VENOUS BLOOD SPECIMENOrdering Facility: [facility] Address: [address] [place] [address] Performed By: #### 2 4344-4 ####[facility] LABCLIA [id number] [place] [address] [place] pH (BldV) 7.25 [pH] Low 7.32-7.42 [facility] Comment on above: Order Comment: Speci men Type: VENOUS BLOOD SPECIMENOrdering Facility: [facility] Address: [address] [place] [address] Performed By: #### 2 4344-4 ####[facility] LABCLIA [id number] [place] [address] [place] Sodium [Moles/Vol] 139 mmol/L Normal 136-144 [facility] Comment on above: Order Comment: Speci men Type: VENOUS BLOOD SPECIMENOrdering Facility: [facility] Address: [address] [place] [address] Performed By: #### 2 4344-4 ####[facility] LABCLIA [id number] [place] [address] [place] BASE DEFICIT, VENOUS -4 mmol/L Low -2-0 [facility] Comment on above: Order Comment: Speci men Type: VENOUS BLOOD SPECIMENOrdering Facility: [facility] Address: [address] [place] [address] Performed By: #### 2 4344-4 ####[facility] LABCLIA [id number] [place] [address] [place] Calcium.ionized (Bld) [Mass/Vol] 1.17 mmol/L Normal 1.08-1.30 [facility] Comment on above: Order Comment: Speci men Type: VENOUS BLOOD SPECIMENOrdering Facility: [facility] Address: [address] [place] [address] Performed By: #### 2 4344-4 ####[facility] LABCLIA [id number] [place] [address] [place] Calcium.ionized adjusted to pH 7.4 (BldA) [Moles/Vol] 1.09 mmol/L Normal 1.08-1.30 [facility] Comment on above: Order Comment: Speci men Type: VENOUS BLOOD SPECIMENOrdering Facility: [facility] Address: [address] [place] [address] Performed By: #### 2 4344-4 ####[facility] LABCLIA [id number] [place] [address] [place] Carboxyhemoglobin (BldV) [Mass fraction] 1.0 % Normal 0.0-2.0 [facility] Comment on above: Order Comment: Speci men Type: VENOUS BLOOD SPECIMENOrdering Facility: [facility] Address: [address] [place] [address] Result Comment: Carb oxyhemoglobin Reference Range for Smokers: 2.0-8.0% Performed By: #### 2 4344-4 ####[facility] LABCLIA [id number] [place] [address] [place] CO2 (BldV) [Partial pressure] 51 mm[Hg] Normal 42-55 [facility] Comment on above: Order Comment: Speci men Type: VENOUS BLOOD SPECIMENOrdering Facility: [facility] Address: [address] [place] [address] Performed By: #### 2 4344-4 ####[facility] LABCLIA [id number] [place] [address] [place] CO2 adjusted to patient's actual temperature (BldV) [Partial pressure] 47 mmHg Normal 42-55 [facility] Comment on above: Order Comment: Speci men Type: VENOUS BLOOD SPECIMENOrdering Facility: [facility] Address: [address] [place] [address] Performed By: #### 2 4344-4 ####[facility] LABCLIA [id number] [place] [address] [place] HCO3 (Bld) [Moles/Vol] 23 mmol/L Low 24-28 [facility] Comment on above: Order Comment: Speci men Type: VENOUS BLOOD SPECIMENOrdering Facility: [facility] Address: [address] [place] [address] Performed By: #### 2 4344-4 ####[facility] LABCLIA [id number] [place] [address] [place] Hematocrit (Bld) [Volume fraction] 35.1 % Low 39.0-51.0 [facility] Comment on above: Order Comment: Speci men Type: VENOUS BLOOD SPECIMENOrdering Facility: [facility] Address: [address] [place] [address] Performed By: #### 2 4344-4 ####[facility] LABIA [id number] [place] [address] [place] Hemoglobin (Bld) [Mass/Vol] 11.4 g/dL Low 13.0-17.0 [facility] Comment on above: Order Comment: Speci men Type: VENOUS BLOOD SPECIMENOrdering Facility: [facility] Address: [address] [place] [address] Performed By: #### 2 4344-4 ####[facility] LABIA [id number] [place] [address] [place] Lactate [Moles/Vol] 4.4 mmol/L High 0.5-2.2 [facility] Comment on above: Order Comment: Speci men Type: VENOUS BLOOD SPECIMENOrdering Facility: [facility] Address: [address] [place] [address] Performed By: #### 2 4344-4 ####[facility] LABCLIA [id number] [place] [address] [place] Methemoglobin (Bld) [Mass fraction] 0.7 % Normal 0.0-1.5 [facility] Comment on above: Order Comment: Speci men Type: VENOUS BLOOD SPECIMENOrdering Facility: [facility] Address: [address] [place] [address] Performed By: #### 2 4344-4 ####[facility] LABCLIA [id number] [address] [address] [place] Oxygen (BldV) [Partial pressure] 35 mm[Hg] Normal 35-45 [facility] Comment on above: Order Comment: Speci men Type: VENOUS BLOOD SPECIMENOrdering Facility: [facility] Address: [address] [place] [id number] Performed By: #### 2 4344-4 ####[facility] LABCLIA [id number] [address] [address] [place] Oxygen adjusted to patient's actual temperature (BldV) [Partial pressure] 31 mmHg Low 35-45 [facility] Comment on above: Order Comment: Speci men Type: VENOUS BLOOD SPECIMENOrdering Facility: [facility] Address: [address] [place] [address] Performed By: #### 2 4344-4 ####[facility] LABCLIA [id number] [address] [address] [place] Oxygen saturation in Venous blood 56 % Low 60-85 [facility] Comment on above: Order Comment: Speci men Type: VENOUS BLOOD SPECIMENOrdering Facility: [facility] Address: [address] [place] [address] Performed By: #### 2 4344-4 ####[facility] LABCLIA [id number] [address] [address] [place] Oxyhemoglobin (BldV) [Mass fraction] 55 % Low 60-85 [facility] Comment on above: Order Comment: Speci men Type: VENOUS BLOOD SPECIMENOrdering Facility: [facility] Address: [address] [place] [address] Performed By: #### 2 4344-4 ####[facility] LABCLIA [id number] [place] [address] [place] pH (BldV) 7.27 [pH] Low 7.32-7.42 [facility] Comment on above: Order Comment: Speci men Type: VENOUS BLOOD SPECIMENOrdering Facility: [facility] Address: [address] [place] [address] Performed By: #### 2 4344-4 ####[facility] LABIA [id number] [place] [address] [place] pH adjusted to patient's actual temperature (BldV) 7.30 Low 7.32-7.42 [facility] Comment on above: Order Comment: Speci men Type: VENOUS BLOOD SPECIMENOrdering Facility: [facility] Address: [address] [place] [address] Performed By: #### 2 4344-4 ####[facility] LABIA [id number] [place] [address] [place] Potassium [Moles/Vol] 5.6 mmol/L High 3.5-5.0 [facility] Comment on above: Order Comment: Speci men Type: VENOUS BLOOD SPECIMENOrdering Facility: [facility] Address: [address] [place] [address] Performed By: #### 2 4344-4 ####[facility] LABIA [id number] [place] [address] [place] BASE DEFICIT, VENOUS -1 mmol/L Normal -2-0 [facility] Comment on above: Order Comment: Speci men Type: VENOUS BLOOD SPECIMENOrdering Facility: [facility] Address: [address] [place] [address] Performed By: #### 2 4344-4 ####[facility] LABIA [id number] [place] [address] [place] Calcium.ionized (Bld) [Mass/Vol] 1.10 mmol/L Normal 1.08-1.30 [facility] Comment on above: Order Comment: Speci men Type: VENOUS BLOOD SPECIMENOrdering Facility: [facility] Address: [address] [place] [address] Performed By: #### 2 4344-4 ####[facility] LABIA [id number] [place] [address] [place] Calcium.ionized adjusted to pH 7.4 (BldA) [Moles/Vol] 1.05 mmol/L Low 1.08-1.30 [facility] Comment on above: Order Comment: Speci men Type: VENOUS BLOOD SPECIMENOrdering Facility: [facility] Address: [address] [place] [address] Performed By: #### 2 4344-4 ####[facility] LABIA [id number] [place] [address] [place] Carboxyhemoglobin (BldV) [Mass fraction] 1.3 % Normal 0.0-2.0 [facility] Comment on above: Order Comment: Speci men Type: VENOUS BLOOD SPECIMENOrdering Facility: [facility] Address: [address] [place] [address] Result Comment: Carb oxyhemoglobin Reference Range for Smokers: 2.0-8.0% Performed By: #### 2 4344-4 ####[facility] LABIA [id number] [place] [address] [place] CO2 (BldV) [Partial pressure] 48 mm[Hg] Normal 42-55 [facility] Comment on above: Order Comment: Speci men Type: VENOUS BLOOD SPECIMENOrdering Facility: [facility] Address: [address] [place] [address] Performed By: #### 2 4344-4 ####[facility] LABCLIA [id number] [place] [address] [place] CO2 adjusted to patient's actual temperature (BldV) [Partial pressure] 48 mmHg Normal 42-55 [facility] Comment on above: Order Comment: Speci men Type: VENOUS BLOOD SPECIMENOrdering Facility: [facility] Address: [address] [place] [id number] Performed By: #### 2 4344-4 ####[facility] LABCLIA [id number] [address] [address] [place] COMMENTS Critical Value: K Normal [facility] Comment on above: Order Comment: Speci men Type: VENOUS BLOOD SPECIMENOrdering Facility: [facility] Address: [address] [place] [address] Performed By: #### 2 4344-4 ####[facility] LABCLIA [id number] [place] [address] [place] DATE/TIME NOTIFIED [id number] PM [facility] Comment on above: Order Comment: Speci men Type: VENOUS BLOOD SPECIMENOrdering Facility: [facility] Address: [address] [place] [address] Performed By: #### 2 4344-4 ####[facility] LABCLIA [id number] [place] [address] [place] Glucose [Mass/Vol] 122 mg/dL High 60-105 [facility] Comment on above: Order Comment: Speci men Type: VENOUS BLOOD SPECIMENOrdering Facility: [facility] Address: [address] [place], [place] [address] Performed By: #### 2 4344-4 ####[facility] LABCLIA [id number] [place] [id number] [place] HCO3 (Bld) [Moles/Vol] 25 mmol/L Normal 24-28 [facility] Comment on above: Order Comment: Speci men Type: VENOUS BLOOD SPECIMENOrdering Facility: [facility] Address: [address] [place], [place] [address] Performed By: #### 2 4344-4 ####[facility] LABCLIA [id number] [place] [address] [place] Hematocrit (Bld) [Volume fraction] 31.7 % Low 39.0-51.0 [facility] Comment on above: Order Comment: Speci men Type: VENOUS BLOOD SPECIMENOrdering Facility: [facility] Address: [address] [place] [address] Performed By: #### 2 4344-4 ####[facility] LABIA [id number] [place] [address] [place] Hemoglobin (Bld) [Mass/Vol] 10.3 g/dL Low 13.0-17.0 [facility] Comment on above: Order Comment: Speci men Type: VENOUS BLOOD SPECIMENOrdering Facility: [facility] Address: [address] [place] [address] Performed By: #### 2 4344-4 ####[facility] [id number] [place] [address] [place] Lactate [Moles/Vol] 1.1 mmol/L Normal 0.5-2.2 [facility] Comment on above: Order Comment: Speci men Type: VENOUS BLOOD SPECIMENOrdering Facility: [facility] Address: [address] [place] [address] Performed By: #### 2 4344-4 ####[facility] [id number] [place] [address] [place] Methemoglobin (Bld) [Mass fraction] 1.0 % Normal 0.0-1.5 [facility] Comment on above: Order Comment: Speci men Type: VENOUS BLOOD SPECIMENOrdering Facility: [facility] Address: [address] [place] [address] Performed By: #### 2 4344-4 ####[facility] LABIA [id number] [address] [place] NOTIFIED WHOM Everton Fung RN ORSepideh Arrieta Normal [facility] Comment on above: Order Comment: Speci men Type: VENOUS BLOOD SPECIMENOrdering Facility: [facility] Address: [address] [place] [address] Performed By: #### 2 4344-4 ####[facility] LABCLIA [id number] [address] [address] [place] Oxygen (BldV) [Partial pressure] 53 mm[Hg] High 35-45 [facility] Comment on above: Order Comment: Speci men Type: VENOUS BLOOD SPECIMENOrdering Facility: [facility] Address: [address] [place] [address] Performed By: #### 2 4344-4 ####[facility] LABCLIA [id number] [address] [address] [place] Oxygen adjusted to patient's actual temperature (BldV) [Partial pressure] 53 mmHg High 35-45 [facility] Comment on above: Order Comment: Speci men Type: VENOUS BLOOD SPECIMENOrdering Facility: [facility] Address: [address] [place] [address] Performed By: #### 2 4344-4 ####[facility] LABCLIA [id number] [address] [address] [place] Oxygen saturation in Venous blood 85 % Normal 60-85 [facility] Comment on above: Order Comment: Speci men Type: VENOUS BLOOD SPECIMENOrdering Facility: [facility] Address: [address] [place] [address] Performed By: #### 2 4344-4 ####[facility] LABCLIA [id number] [address] [address] [place] Oxyhemoglobin (BldV) [Mass fraction] 83 % Normal 60-85 [facility] Comment on above: Order Comment: Speci men Type: VENOUS BLOOD SPECIMENOrdering Facility: [facility] Address: [address] [place] [address] Performed By: #### 2 4344-4 ####[facility] LABCLIA [id number] [place] [address] [place] pH (BldV) 7.33 [pH] Normal 7.32-7.42 [facility] Comment on above: Order Comment: Speci men Type: VENOUS BLOOD SPECIMENOrdering Facility: [facility] Address: [address] [place] [address] Performed By: #### 2 4344-4 ####[facility] LABIA [id number] [place] [address] [place] pH adjusted to patient's actual temperature (BldV) 7.33 Normal 7.32-7.42 [facility] Comment on above: Order Comment: Speci men Type: VENOUS BLOOD SPECIMENOrdering Facility: [facility] Address: [address] [place] [address] Performed By: #### 2 4344-4 ####[facility] LABIA [id number] [place] [address] [place] Potassium [Moles/Vol] 7.4 mmol/L Critically high 3.5-5.0 [facility] Comment on above: Order Comment: Speci men Type: VENOUS BLOOD SPECIMENOrdering Facility: [facility] Address: [address] [place] [address] Performed By: #### 2 4344-4 ####[facility] LABIA [id number] [place] [address] [place] Sodium [Moles/Vol] 127 mmol/L Low 136-144 [facility] Comment on above: Order Comment: Speci men Type: VENOUS BLOOD SPECIMENOrdering Facility: [facility] Address: [address] [place] [address] Performed By: #### 2 4344-4 ####[facility] LABIA [id number] [place] [address] [place] INTRAOPERATIVE ECHO PREon INTRAOPERATIVE ECHO PRE Normal [facility] Magnesium SerPl-mCncon 06-18 Magnesium [Mass/Vol] 2.3 mg/dL Normal 1.7-2.3 [facility] Comment on above: Order Comment: Speccharlie villalpando Type: BLOOD SPECIMENOrdering Facility: [facility] Address: [address] [place] [address] Performed By: #### 2 4321-2, 34424-5, 2777-1 ####[facility] LABCLIA [id number] [address] [address] [place] Magnesium [Mass/Vol] 2.2 mg/dL Normal 1.7-2.3 [facility] Comment on above: Order Comment: Bobby villalpando Type: BLOOD SPECIMENOrdering Facility: [facility] Address: [address] [place] [address] Performed By: #### 1 9123-9, 2777-1, 87402-5 ####[facility] LABCLIA [id number] [place] [id number] [place] NUTRITIONon 06-18-2024 NUTRITION Normal [facility] OPERATIVE NOon 06-18-2024 OPERATIVE NO Normal [facility] PT panel Coag (PPP)on 2023 INR Coag (PPP) [Relative time] 1.2 {INR} Normal 0.9-1.3 [facility] Comment on above: Order Comment: Speci kwasi Type: BLOOD SPECIMENOrdering Facility: [facility] Address: [address] [place] [address] Result Comment: Rizwana min K Antagonist (VKA) Therapeutic Range: INR 2 to 3 (Target INR of 2.5)Note: For patients treated with VKA drugs, such as warfarin, the [employer] [employer] 2012 Guideline recommends a therapeutic INR range of 2 to 3 (target INR of 2.5). This recommendation includes high-risk patients with antiphospholipid syndrome with previous arterial or venous thromboembolism, current-generation mechanical or bioprosthetic aortic heart valve replacement.Note: Patients with mechanical aortic valve replacement and additional risk factors for thromboembolic events (atrial fibrillation, previous thromboembolism, LV dysfunction, hypercoagulable conditions) or an older generation mechanical AVR (i.e., ball in-Cage) or any mechanical MVR should have a INR therapeutic range of 2.5 to 3.5 (target INR of 3).Es MORA, et al. Chest 2012, 141:7S-47SJames RA, et al. [facility] 2017, 70: 252-289 Performed By: #### 3 255-7, 61077-3, 16969-3 ####[facility] [id number] [place] [id number] [place] PT Coag (PPP) [Time] 12.2 s Normal 9.7-13.0 [facility] Comment on above: Order Comment: Bobby villalpando Type: BLOOD SPECIMENOrdering Facility: [facility] Address: [address] [place] [address] Performed By: #### 3 255-7, 23699-6, 09377-6 ####[facility] [id number] [place] [address] [place] INR Coag (PPP) [Relative time] 1.6 {INR} High 0.9-1.3 [facility] Comment on above: Order Comment: Bobby villalpando Type: BLOOD SPECIMENOrdering Facility: [facility] Address: [address] [place] [address] Result Comment: Rizwana min K Antagonist (VKA) Therapeutic Range: INR 2 to 3 (Target INR of 2.5)Note: For patients treated with VKA drugs, such as warfarin, the [employer] 2012 Guideline recommends a therapeutic INR range of 2 to 3 (target INR of 2.5). This recommendation includes high-risk patients with antiphospholipid syndrome with previous arterial or venous thromboembolism, current-generation mechanical or bioprosthetic aortic heart valve replacement.Note: Patients with mechanical aortic valve replacement and additional risk factors for thromboembolic events (atrial fibrillation, previous thromboembolism, LV dysfunction, hypercoagulable conditions) or an older generation mechanical AVR (i.e., ball in-Cage) or any mechanical MVR should have a INR therapeutic range of 2.5 to 3.5 (target INR of 3).Es GH, et al. Chest 2012, 141:7S-47SNishimura RA, et al. [facility] 2017, 70: 252-289 Performed By: #### 3 255-7, 35851-3, 79761-5 ####[facility] LABCLIA [id number] [place] [address] [place] PT Coag (PPP) [Time] 16.7 s High 9.7-13.0 [facility] Comment on above: Order Comment: Speci men Type: BLOOD SPECIMENOrdering Facility: [facility] Address: [address] [place] [address] Performed By: #### 3 255-7, 85893-0, 80353-4 ####[facility] LABCLIA [id number] [place] [address] [place] PTT, ANTICOAGULANT THERAPYon 06-18-2024 aPTT Coag (PPP) [Time] 61.9 s High 23.0-32.4 [facility] Comment on above: Order Comment: Speci men Type: BLOOD SPECIMENOrdering Facility: [facility] Address: [address] [place] [address] Performed By: #### P TTA ####[facility] LABCLIA [id number] [place] [address] [place] Phosphate SerPl-mCncon 06-18 Phosphate [Mass/Vol] 4.2 mg/dL Normal 2.7-4.8 [facility] Comment on above: Order Comment: Speci men Type: BLOOD SPECIMENOrdering Facility: [facility] Address: [address] [place] [address] Performed By: #### 2 4321-2, 76597-3, 2777-1 ####[facility] LABCLIA [id number] [place] [address] [place] Phosphate [Mass/Vol] 4.9 mg/dL High 2.7-4.8 [facility] Comment on above: Order Comment: Speci men Type: BLOOD SPECIMENOrdering Facility: [facility] Address: [address] [place] [address] Performed By: #### 1 9123-9, 2777-1, 58846-9 ####[facility] LABCLIA [id number] [place] [address] [place] Platelets Auto (Bld) [#/Vol] on 06-18-2024 Platelets (Bld) [#/Vol] 180 10*3/uL Normal 150-400 [facility] Comment on above: Order Comment: Speci men Type: BLOOD SPECIMENOrdering Facility: [facility] Address: [address] [place] [address] Performed By: #### 7 77-3 ####[facility] LABIA [id number] [address] Platelets (Bld) [#/Vol] 58 10*3/uL Low 150-400 [facility] Comment on above: Order Comment: Speci men Type: BLOOD SPECIMENOrdering Facility: [facility] Address: [address] [place] [address] Result Comment: No c lot detected. Performed By: #### 7 77-3 ####[facility] LABIA [id number] [address] [place] THROMBOGRAPH PANELon 024 Clot angle TEG (Bld) [Angle] 62.4 degrees Normal 47.0-74.0 [facility] Comment on above: Order Comment: Speci men Type: BLOOD SPECIMENOrdering Facility: [facility] Address: [address] [place] [address] Performed By: #### T EGPNP ####[facility] LABCLIA [id number] [address] [place] Clot Lysis 30 Min post maximum clot amplitude TEG (Bld) [Length fraction] 0.0 % Normal 0.0-8.0 [facility] Comment on above: Order Comment: Speci men Type: BLOOD SPECIMENOrdering Facility: [facility] Address: [address] [place] [address] Performed By: #### T EGPNP ####[facility] LABCLIA [id number] [place] [address] [place] Clotting time TEG (Bld) 2.3 minutes Low 4.0-10.0 [facility] Comment on above: Order Comment: Speci men Type: BLOOD SPECIMENOrdering Facility: [facility] Address: [address] [place] [address] Performed By: #### T EGPNP ####[facility] LABCLIA [id number] [place] [address] [place] Coagulation index TEG Qn (Bld) 1.2 Normal -4.6-3.2 [facility] Comment on above: Order Comment: Speci men Type: BLOOD SPECIMENOrdering Facility: [facility] Address: [address] [place] [address] Result Comment: The Coagulation Index, a secondary parameter, is labeled by the disassembler as for research use only and is used per the disassembler's instructions. Its performance characteristics were determined by [facility] [place] in a manner consistent with CLIA requirements. This test has not been cleared by the U.S. Food and Drug Administration. Performed By: #### T EGPNP ####[facility] LABCLIA [id number] [place] [address] [place] Maximum clot firmness TEG (Bld) [Length] 54.1 mm Normal 51.0-75.0 [facility] Comment on above: Order Comment: Speci men Type: BLOOD SPECIMENOrdering Facility: [facility] Address: [address] [place] [address] Performed By: #### T EGPNP ####[facility] LABCLIA [id number] [place] [address] [place] Thromboelastography after addtion of heparinase panel (Bld) Normal [facility] Comment on above: Order Comment: Speci men Type: BLOOD SPECIMENOrdering Facility: [facility] Address: [address] [place] [address] Result Comment: A th romboelastograph (TEG) study was performed using citrate-anticoagulated whole blood.The R value, a measure of coagulation function, is short. This indicates coagulation hyperfunction. This could be seen with high levels of coagulation factors, coagulation activation, or inadequate anticoagulation. The angle, a measure of fibrinogen function, is within normal range. This is indicative of normal fibrinogen concentration or function. The Maximal Amplitude (MA), a measure of platelet function, is within the normal range. The Ly30, a measure of fibrinolysis, is normal. This is indicative of normal fibrinolytic function. The coagulation index (CI), a measure of hemostasis function, is within the normal range. The CI is a calculated parameter based on the other TEG results.Viscoelastic testing is not intended for the monitoring of anticoagulation or antiplatelet medications or the diagnosis and/or management of platelet disorders and/or coagulopathies but may be useful for guiding blood product utilization in emergency and urgent (OR) circumstances when routine coagulation and cell blood counts are not available in a timely manner. Performed By: #### T EGPNP ####[facility] LABCLIA [id number] [place] [address] [place] TYPE + SCREENon 06-18-2024 ABO A Normal [facility] Comment on above: Order Comment: Speci men Type: BLOOD SPECIMENOrdering Facility: [facility] Address: [address] [place] [address] Performed By: #### T SCR ####[facility] BLOOD BANKCLIA [id number] [address] [place] HISTORICAL AB SCR STATUS Negative Normal [facility] Comment on above: Order Comment: Speci men Type: BLOOD SPECIMENOrdering Facility: [facility] Address: [address] [place] [address] Performed By: #### T SCR ####[facility] BLO[facility] BANKCLIA [id number] [place] [address] [place] Rh Nom (Bld) Positive Normal [facility] Comment on above: Order Comment: Speci men Type: BLOOD SPECIMENOrdering Facility: [facility] Address: [address] [place] [address] Performed By: #### T SCR ####[facility] BLOOD BANKCLIA [id number] [place] [address] [place] TYPE AND SCREEN EXPIRATION 06/21/2024 23:59 Normal [facility] Comment on above: Order Comment: Speci men Type: BLOOD SPECIMENOrdering Facility: [facility] Address: [address] [place] [address] Performed By: #### T SCR ####[facility] BLOOD BANKCLIA [id number] [place] [address] [place] XR CHEST 1V FRONTAL PORTon 0 06-18-2024 XR CHEST 1V FRONTAL PORT Normal [facility] XR CHEST 2V FRONTAL/LATon XR CHEST 2V FRONTAL/LAT Normal [facility] aPTT PPPon 06-18-2024 aPTT Coag (PPP) [Time] 42.2 s High 23.0-32.4 [facility] Comment on above: Order Comment: Speci men Type: BLOOD SPECIMENOrdering Facility: [facility] Address: [address] [place] [address] Performed By: #### 3 255-7, 34850-6, 14946-5 ####[facility] LABCLIA [id number] [address] [place] aPTT Coag (PPP) [Time] 31.6 s Normal 23.0-32.4 [facility] Comment on above: Order Comment: Speci men Type: BLOOD SPECIMENOrdering Facility: [facility] Address: [address] [place] [address] Performed By: #### 3 255-7, 36342-3, 84817-3 ####[facility] LABIA [id number] [place] [id number] [place] Basic metabolic 2000 panelon 06-17-2024 Anion gap [Moles/Vol] 10 mmol/L Normal 8-15 [facility] Comment on above: Order Comment: Speci men Type: BLOOD SPECIMENOrdering Facility: [facility] Address: [address] [place] [address] Performed By: #### 1 9123-9, 2777-1, 43484-4 ####[facility] LABIA [id number] [place] [address] [place] Calcium [Mass/Vol] 9.3 mg/dL Normal 8.5-10.2 [facility] Comment on above: Order Comment: Speci men Type: BLOOD SPECIMENOrdering Facility: [facility] Address: [address] [place] [address] Performed By: #### 1 9123-9, 2777-1, 49189-3 ####[facility] LABIA [id number] [place] [address] [place] Chloride [Moles/Vol] 103 mmol/L Normal 98-107 [facility] Comment on above: Order Comment: Speci men Type: BLOOD SPECIMENOrdering Facility: [facility] Address: [address] [place] [address] Performed By: #### 1 9123-9, 2777-1, 99606-2 ####[facility] LABIA [id number] [place] [address] [place] CO2 [Moles/Vol] 21 mmol/L Low 22-30 [facility] Comment on above: Order Comment: Speci men Type: BLOOD SPECIMENOrdering Facility: [facility] Address: [address] [place] [address] Performed By: #### 1 9123-9, 2777-1, 04114-8 ####[facility] LABIA [id number] [place] [id number] [place] Creatinine [Mass/Vol] 1.51 mg/dL High 0.73-1.22 [facility] Comment on above: Order Comment: Bobby villalpando Type: BLOOD SPECIMENOrdering Facility: [facility] Address: [address] [place] [address] Performed By: #### 1 9123-9, 2777-, 10951-2 ####[facility] LABIA [id number] [place] [address] [place] Creatinine and Glomerular filtration rate.predicted panel (S/P/Bld) 48 mL/min/1.73m??? Low >=60 [facility] Comment on above: Order Comment: Bobby villalpando Type: BLOOD SPECIMENOrdering Facility: [facility] Address: [address] [place] [address] Result Comment: Annalisa mated Glomerular Filtration Rate (eGFR) is calculated using the 2020 CKD-EPI creatinine equation. This equation utilizes serum creatinine, sex, and age as parameters. The creatinine assay has traceable calibration to isotope dilution-mass spectrometry. Refer to KDIGO guidelines for clinical interpretation. In patients with unstable renal function, e.g. those with acute kidney injury, the eGFR may not accurately reflect actual GFR. Performed By: #### 1 9123-9, 2777-, 51668-8 ####[facility] LABIA [id number] [place] [id number] [place] Glucose [Mass/Vol] 101 mg/dL High 74-99 [facility] Comment on above: Order Comment: Bobby villalpando Type: BLOOD SPECIMENOrdering Facility: [facility] Address: [address] [place] [address] Result Comment: The [place] Diabetes Association (ADA) provides guidance for cutoff values for fasting glucose and random glucose. The ADA defines fasting as no caloric intake for at least 8 hours. Fasting plasma glucose results between 100 to 125 mg/dL indicate increased risk for diabetes (prediabetes).Fasting plasma glucose results greater than or equal to 126 mg/dL meet the criteria for diagnosis of diabetes. In the absence of unequivocal hyperglycemia, results should be confirmed by repeat testing. In a patient with classic symptoms of hyperglycemia or hyperglycemic crisis, random plasma glucose results greater than or equal to 200 mg/dL meet the criteria for diagnosis of diabetes.Reference: Standards of Medical Care in Diabetes 2016, [place] [employer]. Diabetes Care. 2016.39(Suppl 1). Performed By: #### 1 9123-9, 2777, 92642-5 ####[facility] LABCLIA [id number] [address] [address] [place] Potassium [Moles/Vol] 4.6 mmol/L Normal 3.7-5.1 [facility] Comment on above: Order Comment: Chandanai men Type: BLOOD SPECIMENOrdering Facility: [facility] Address: [address] [place] [address] Performed By: #### 1 9123-9, 27705-11, 02772-7 ####[facility] LABIA [id number] [place] [address] [place] Sodium [Moles/Vol] 134 mmol/L Low 136-144 [facility] Comment on above: Order Comment: Chandanai kwasi Type: BLOOD SPECIMENOrdering Facility: [facility] Address: [address] [place], [place] [address] Performed By: #### 1 9123-9, 27705-11, 75310-4 ####[facility] LABIA [id number] [place] [id number] [place] Urea nitrogen [Mass/Vol] 30 mg/dL High 9-24 [facility] Comment on above: Order Comment: Chandanai men Type: BLOOD SPECIMENOrdering Facility: [facility] Address: [address] [place] [address] Performed By: #### 1 9123-9, 2777-, 97672-4 ####[facility] LABCLIA [id number] [place] [address] [place] CBC panel Auto (Bld)on 06-17 Erythrocyte distribution width (RBC) [Ratio] 14.2 % Normal 11.5-15.0 [facility] Comment on above: Order Comment: Speci men Type: BLOOD SPECIMENOrdering Facility: [facility] Address: [address] [place] [address] Performed By: #### 5 8410-2 ####[facility] LABIA [id number] [address] [place] Hematocrit (Bld) [Volume fraction] 45.1 % Normal 39.0-51.0 [facility] Comment on above: Order Comment: Speci men Type: BLOOD SPECIMENOrdering Facility: [facility] Address: [address] [place] [address] Performed By: #### 5 8410-2 ####[facility] LABIA [id number] [address] [place] Hemoglobin (Bld) [Mass/Vol] 15.0 g/dL Normal 13.0-17.0 [facility] Comment on above: Order Comment: Speci men Type: BLOOD SPECIMENOrdering Facility: [facility] Address: [address] [place] [address] Performed By: #### 5 8410-2 ####[facility] LABIA [id number] [place] [address] [place] MCH (RBC) [Entitic mass] 29.6 pg Normal 26.0-34.0 [facility] Comment on above: Order Comment: Speci men Type: BLOOD SPECIMENOrdering Facility: [facility] Address: [address] [place] [address] Performed By: #### 5 8410-2 ####[facility] LABCLIA [id number] [place] [address] [place] MCHC (RBC) [Mass/Vol] 33.3 g/dL Normal 30.5-36.0 [facility] Comment on above: Order Comment: Speci men Type: BLOOD SPECIMENOrdering Facility: [facility] Address: [address] [place] [address] Performed By: #### 5 8410-2 ####[facility] LABIA [id number] [place] [address] [place] MCV (RBC) [Entitic vol] 89.1 fL Normal 80.0-100.0 [facility] Comment on above: Order Comment: Speci men Type: BLOOD SPECIMENOrdering Facility: [facility] Address: [address] [place] [address] Performed By: #### 5 8410-2 ####[facility] LABIA [id number] [place] [address] [place] Nucleated RBC (Bld) [#/Vol] 10*3/uL Normal <0.01 [facility] Comment on above: Order Comment: Speci men Type: BLOOD SPECIMENOrdering Facility: [facility] Address: [address] [place] [address] Performed By: #### 5 8410-2 ####[facility] LABIA [id number] [place] [address] [place] Platelet mean volume (Bld) [Entitic vol] 10.1 fL Normal 9.0-12.7 [facility] Comment on above: Order Comment: Speci men Type: BLOOD SPECIMENOrdering Facility: [facility] Address: [address] [place] [address] Performed By: #### 5 8410-2 ####[facility] LABIA [id number] [place] [address] [place] Platelets (Bld) [#/Vol] 152 10*3/uL Normal 150-400 [facility] Comment on above: Order Comment: Speci men Type: BLOOD SPECIMENOrdering Facility: [facility] Address: [address] [place], [place] [address] Performed By: #### 5 8410-2 ####[facility] LABCLIA [id number] [place] [address] [place] RBC (Bld) [#/Vol] 5.06 10*6/uL Normal 4.20-6.00 [facility] Comment on above: Order Comment: Speci men Type: BLOOD SPECIMENOrdering Facility: [facility] Address: [address] [place] [address] Performed By: #### 5 8410-2 ####[facility] LABIA [id number] [place] [address] [place] WBC (Bld) [#/Vol] 7.75 10*3/uL Normal 3.70-11.00 [facility] Comment on above: Order Comment: Speci men Type: BLOOD SPECIMENOrdering Facility: [facility] Address: [address] [place] [address] Performed By: #### 5 8410-2 ####[facility] LABIA [id number] [place] [address] [place] CONSULT PROGon 06-17-2024 CONSULT PROG Normal [facility] Magnesium SerPl-mCncon 06-17 Magnesium [Mass/Vol] 2.3 mg/dL Normal 1.7-2.3 [facility] Comment on above: Order Comment: Speci men Type: BLOOD SPECIMENOrdering Facility: [facility] Address: [address] [place] [address] Performed By: #### 1 9123-9, 2777-1, 52672-7 ####[facility] LABIA [id number] [place] [address] [place] OUTSIDE SURG PATH SLIDE REVI EWon 06-17-2024 ADDENDUM 1: Normal [facility] Comment on above: Order Comment: Speci men Type: FORMALIN-FIXED PARAFFIN-EMBEDDED TISSUE SPECIMENOrdering Facility: [facility] Outside Review Address: , , Result Comment: Part C of this case has been reviewed by Dr. Garrett, a member of the [facility], who agrees with this assessment.Addendum electronically signed by Charlette Cordero MD on 06/23/2024 at 1:44 PM Performed By: #### L [id number] ####[facility] LABCLIA [id number] [address] [address] [place] CASE REPORT Normal [facility] Comment on above: Order Comment: Speci men Type: FORMALIN-FIXED PARAFFIN-EMBEDDED TISSUE SPECIMENOrdering Facility: [facility] Outside Review Address: , , Result Comment: [facility] Pathology Report Case: [id number] Provider: Micha Avina MD Collected: 06/17/2024 02:47 PMOrdering Location: [facility] Received: 06/17/2024 02:47 PM [facility] LaboratoryPathologist: Charlette Cordero MDSpecimen: Slide(s), 9 SLIDES [id number] Performed By: #### L [id number] ####[facility] LABCLIA [id number] [address] [address] [place] [facility] FIN[facility] Normal [facility] Comment on above: Order Comment: Speci men Type: FORMALIN-FIXED PARAFFIN-EMBEDDED TISSUE SPECIMENOrdering Facility: [facility] Outside Review Address: , , Result Comment: [facility], [place], [place]; [id number] (06/05/2024)1. Stomach, biopsy (A): - Gastric oxyntic and antral mucosa with mild reactive epithelial changes and focal mild chronic inflammation.- No definitive morphologic evidence of Helicobacter pylori organisms.2. Colon, transverse, polyp, biopsy (B): - Hyperplastic polyp.3. Rectum, mass, biopsy (C): - Invasive moderately differentiated adenocarcinoma. Performed By: #### L [id number] ####[facility] LABCLIA [id number] [address] [address] [place] FINAL PERFORMING LAB Normal [facility] Comment on above: Order Comment: Speci men Type: FORMALIN-FIXED PARAFFIN-EMBEDDED TISSUE SPECIMENOrdering Facility: [facility] Outside Review Address: , , Result Comment: Diag nostic interpretation performed at [facility], [address] [place] [address] CLIA# [id number] Director: Jeffrey Tolentino M.D. Performed By: #### L [id number] ####[facility] LABCLIA [id number] [place] [id number] [place] PTT, ANTICOAGULANT THERAPYon 06-17-2024 aPTT Coag (PPP) [Time] 63.6 s High 23.0-32.4 [facility] Comment on above: Order Comment: Speci men Type: BLOOD SPECIMENOrdering Facility: [facility] Address: [address] [place] [address] Performed By: #### P TTAC ####[facility] LABCLIA [id number] [place] [address] [place] Phosphate SerPl-mCncon 06-17 Phosphate [Mass/Vol] 4.7 mg/dL Normal 2.7-4.8 [facility] Comment on above: Order Comment: Speci men Type: BLOOD SPECIMENOrdering Facility: [facility] Address: [address] [place] [address] Performed By: #### 1 9123-9, 2777-1, 75515-0 ####[facility] LABCLIA [id number] [place] [id number] [place] Basic metabolic 2000 panelon 06-16-2024 Anion gap [Moles/Vol] 11 mmol/L Normal 8-15 [facility] Comment on above: Order Comment: Speci men Type: BLOOD SPECIMENOrdering Facility: [facility] Address: [address] [place] [address] Performed By: #### 2 4321-2, 03809-4, 3016-3, 11404-1, 2777-1 ####[facility] LABCLIA [id number] [address] [address] [place] Calcium [Mass/Vol] 9.2 mg/dL Normal 8.5-10.2 [facility] Comment on above: Order Comment: Speci men Type: BLOOD SPECIMENOrdering Facility: [facility] Address: [address] [place] [address] Performed By: #### 2 4321-2, 23152-5, 6-3, 28303-2, 2777-1 ####[facility] LABCLIA [id number] [place] [id number] [place] Chloride [Moles/Vol] 103 mmol/L Normal 98-107 [facility] Comment on above: Order Comment: Speci men Type: BLOOD SPECIMENOrdering Facility: [facility] Address: [address] [place] [address] Performed By: #### 2 4321-2, 11533-6, 6-3, 33602-6, 2777-1 ####[facility] LABIA [id number] [place] [id number] [place] CO2 [Moles/Vol] 21 mmol/L Low 22-30 [facility] Comment on above: Order Comment: Speci men Type: BLOOD SPECIMENOrdering Facility: [facility] Address: [address] [place], [place] [address] Performed By: #### 2 4321-2, 06675-6, 6-3, 68728-8, 2777-1 ####[facility] LABCLIA [id number] [place] [id number] [place] Creatinine [Mass/Vol] 1.62 mg/dL High 0.73-1.22 [facility] Comment on above: Order Comment: Speci men Type: BLOOD SPECIMENOrdering Facility: [facility] Address: [address] [place] [address] Performed By: #### 2 4321-2, 67239-0, 3016-3, 86682-7, 2777-1 ####[facility] [id number] [place] [address] [place] Creatinine and Glomerular filtration rate.predicted panel (S/P/Bld) 44 mL/min/1.73m??? Low >=60 [facility] Comment on above: Order Comment: Bobby villalpando Type: BLOOD SPECIMENOrdering Facility: [facility] Address: [address] [place] [address] Result Comment: Annalisa mated Glomerular Filtration Rate (eGFR) is calculated using the 2020 CKD-EPI creatinine equation. This equation utilizes serum creatinine, sex, and age as parameters. The creatinine assay has traceable calibration to isotope dilution-mass spectrometry. Refer to KDIGO guidelines for clinical interpretation. In patients with unstable renal function, e.g. those with acute kidney injury, the eGFR may not accurately reflect actual GFR. Performed By: #### 2 4321-2, 36891-7, 3016-3, 12124-2, 2777-1 ####[facility] LABIA [id number] [place] [id number] [place] Glucose [Mass/Vol] 94 mg/dL Normal 74-99 [facility] Comment on above: Order Comment: Bobby villalpando Type: BLOOD SPECIMENOrdering Facility: [facility] Address: [address] [place] [address] Result Comment: The [place] Diabetes Association (ADA) provides guidance for cutoff values for fasting glucose and random glucose. The ADA defines fasting as no caloric intake for at least 8 hours. Fasting plasma glucose results between 100 to 125 mg/dL indicate increased risk for diabetes (prediabetes).Fasting plasma glucose results greater than or equal to 126 mg/dL meet the criteria for diagnosis of diabetes. In the absence of unequivocal hyperglycemia, results should be confirmed by repeat testing. In a patient with classic symptoms of hyperglycemia or hyperglycemic crisis, random plasma glucose results greater than or equal to 200 mg/dL meet the criteria for diagnosis of diabetes.Reference: Standards of Medical Care in Diabetes 2016, [place] [employer]. Diabetes Care. 2016.39(Suppl 1). Performed By: #### 2 4321-2, 25308-1, 6-3, 84439-4, 2777-1 ####[facility] LABCLIA [id number] [address] [address] [place] Potassium [Moles/Vol] 4.8 mmol/L Normal 3.7-5.1 [facility] Comment on above: Order Comment: Speci men Type: BLOOD SPECIMENOrdering Facility: [facility] Address: [address] [place], [place] [address] Performed By: #### 2 4321-2, 73119-6, 3015-3, 88797-0, 2777-1 ####[facility] LABCLIA [id number] [place] [address] [place] Sodium [Moles/Vol] 135 mmol/L Low 136-144 [facility] Comment on above: Order Comment: Speci men Type: BLOOD SPECIMENOrdering Facility: [facility] Address: [address] [place] [address] Performed By: #### 2 4321-2, 18552-6, 3015-3, 19430-1, 2777-1 ####[facility] LABIA [id number] [place] [id number] [place] Urea nitrogen [Mass/Vol] 29 mg/dL High 9-24 [facility] Comment on above: Order Comment: Speci men Type: BLOOD SPECIMENOrdering Facility: [facility] Address: [address] [place], [place] [address] Performed By: #### 2 4321-2, 12750-6, 3015-3, 47491-5, 2777-1 ####[facility] LABIA [id number] [address] [address] [place] CBC panel Auto (Bld)on 06-16 Erythrocyte distribution width (RBC) [Ratio] 13.9 % Normal 11.5-15.0 [facility] Comment on above: Order Comment: Speci men Type: BLOOD SPECIMENOrdering Facility: [facility] Address: [address] [place] [address] Performed By: #### 5 5454-3, 42863-3 ####[facility] LABCLIA [id number] [place] [address] [place] Hematocrit (Bld) [Volume fraction] 47.6 % Normal 39.0-51.0 [facility] Comment on above: Order Comment: Speci men Type: BLOOD SPECIMENOrdering Facility: [facility] Address: [address] [place] [address] Performed By: #### 5 5454-3, 68322-2 ####[facility] LABCLIA [id number] [place] [address] [place] Hemoglobin (Bld) [Mass/Vol] 15.2 g/dL Normal 13.0-17.0 [facility] Comment on above: Order Comment: Speci men Type: BLOOD SPECIMENOrdering Facility: [facility] Address: [address] [place] [address] Performed By: #### 5 5454-3, 44365-4 ####[facility] LABCLIA [id number] [place] [address] [place] MCH (RBC) [Entitic mass] 29.3 pg Normal 26.0-34.0 [facility] Comment on above: Order Comment: Speci men Type: BLOOD SPECIMENOrdering Facility: [facility] Address: [address] [place] [address] Performed By: #### 5 5454-3, 28727-3 ####[facility] LABCLIA [id number] [place] [address] [place] MCHC (RBC) [Mass/Vol] 31.9 g/dL Normal 30.5-36.0 [facility] Comment on above: Order Comment: Speci men Type: BLOOD SPECIMENOrdering Facility: [facility] Address: [address] [place] [address] Performed By: #### 5 5454-3, 70681-8 ####[facility] LABIA [id number] [place] [address] [place] MCV (RBC) [Entitic vol] 91.9 fL Normal 80.0-100.0 [facility] Comment on above: Order Comment: Speci men Type: BLOOD SPECIMENOrdering Facility: [facility] Address: [address] [place] [address] Performed By: #### 5 5454-3, 57339-4 ####[facility] [id number] [place] [address] [place] Nucleated RBC (Bld) [#/Vol] 10*3/uL Normal <0.01 [facility] Comment on above: Order Comment: Speci men Type: BLOOD SPECIMENOrdering Facility: [facility] Address: [address] [place] [address] Performed By: #### 5 5454-3, 85277-2 ####[facility] LABIA [id number] [place] [address] [place] Platelet mean volume (Bld) [Entitic vol] 10.8 fL Normal 9.0-12.7 [facility] Comment on above: Order Comment: Speci men Type: BLOOD SPECIMENOrdering Facility: [facility] Address: [address] [place] [address] Performed By: #### 5 5454-3, 87945-2 ####[facility] LABIA [id number] [place] [address] [place] Platelets (Bld) [#/Vol] 165 10*3/uL Normal 150-400 [facility] Comment on above: Order Comment: Speci men Type: BLOOD SPECIMENOrdering Facility: [facility] Address: [address] [place] [address] Performed By: #### 5 5454-3, 00252-6 ####[facility] LABCLIA [id number] [place] [address] [place] RBC (Bld) [#/Vol] 5.18 10*6/uL Normal 4.20-6.00 [facility] Comment on above: Order Comment: Speci men Type: BLOOD SPECIMENOrdering Facility: [facility] Address: [address] [place] [address] Performed By: #### 5 5454-3, 48602-5 ####[facility] LABCLIA [id number] [place] [address] [place] WBC (Bld) [#/Vol] 7.76 10*3/uL Normal 3.70-11.00 [facility] Comment on above: Order Comment: Speci men Type: BLOOD SPECIMENOrdering Facility: [facility] Address: [address] [place] [address] Performed By: #### 5 5454-3, 82225-9 ####[facility] LABIA [id number] [place] [address] [place] CONSULT PROGon 06-16-2024 CONSULT PROG Normal [facility] HbA1c (Bld)on 06-16-2024 Average glucose Estimated from glycated hemoglobin (Bld) [Mass/Vol] 123 mg/dL Normal [facility] Comment on above: Order Comment: Speci men Type: BLOOD SPECIMENOrdering Facility: [facility] Address: [address] [place] [address] Result Comment: eAG: (Estimated average glucose) is a calculated value from HgbA1c and is area representative of the average blood glucose level in the last 2-3 month period. Performed By: #### 5 5454-3, 39120-1 ####[facility] LABCLIA [id number] [place] [address] [place] HbA1c (Bld) [Mass fraction] 5.9 % High 4.3-5.6 [facility] Comment on above: Order Comment: Bobby villalpando Type: BLOOD SPECIMENOrdering Facility: [facility] Address: [address] [place] [address] Result Comment: [place] Diabetes Association guidelines indicate that patients with HgbA1c in the range 5.7-6.4% are at increased risk for development of diabetes, and intervention by lifestyle modification may be beneficial. HgbA1c greater or equal to 6.5% is considered diagnostic of diabetes. Performed By: #### 5 5454-3, 44085-7 ####[facility] LABCLIA [id number] [place] [address] [place] Lipid 1996 panelon 4 Cholesterol [Mass/Vol] 96 mg/dL Normal <200 [facility] [facility] Comment on above: Order Comment: Bobby villalpando Type: BLOOD SPECIMENOrdering Facility: [facility] Address: [address] [place] [address] Result Comment: <200 mg/dL, Desirable 200-239 mg/dL, Borderline high>239 mg/dL, High Performed By: #### 2 4321-2, 27859-1, 3015-3, 13108-1, 2777-1 ####[facility] LABCLIA [id number] [place] [address] [place] Cholesterol in HDL [Mass/Vol] 39 mg/dL Low >39 [facility] Comment on above: Order Comment: Bobby villalpando Type: BLOOD SPECIMENOrdering Facility: [facility] Address: [address] [place] [address] Result Comment: 40-5 9 mg/dL, Acceptable>59 mg/dL, High: Negative risk factor for coronary heart disease<40 mg/dL, Low: Positive risk factor for coronary heart disease Performed By: #### 2 4321-2, 52439-7, 6-3, 72979-4, 2777-1 ####[facility] LABCLIA [id number] [place] [id number] [place] Cholesterol in LDL [Mass/Vol] 40 mg/dL Normal <100 [facility] Comment on above: Order Comment: Speci men Type: BLOOD SPECIMENOrdering Facility: [facility] Address: [address] [place] [address] Result Comment: <100 mg/dL, Optimal 100-129 mg/dL, Near optimal/above optimal 130-159 mg/dL, Borderline high 160-189 mg/dL, High>189 mg/dL, Very highSecondary prevention optimal LDL Cholesterol levels are recommended to be < 70 mg/dL Performed By: #### 2 4321-2, 50844-6, 6-3, 07326-2, 7-1 ####[facility] LABCLIA [id number] [address] [place] Cholesterol in LDL/Cholesterol in HDL [Mass ratio] 1.03 {ratio} Normal <2.54 [facility] Comment on above: Order Comment: Chandanai men Type: BLOOD SPECIMENOrdering Facility: [facility] Address: [address] [place] [address] Result Comment: Refe rence:1. National Cholesterol Education Program ATP III Guideline At-A-Glance Quick Desk Reference: National Heart, Lung, and Blood [place]. National Institutes of Health. 2001: NIH Publication No. 01-3305.2. An International Atherosclerosis Society position paper: global recommendations for the management of dyslipidemia: executive summary, Atherosclerosis. 2014: 232(2):410-413. Performed By: #### 2 4321-2, 49366-1, 3015-3, 62340-5, 2776- ####[facility] LABCLIA [id number] [place] [id number] [place] Cholesterol in VLDL [Mass/Vol] 17 mg/dL Normal <30 [facility] Comment on above: Order Comment: Bobby men Type: BLOOD SPECIMENOrdering Facility: [facility] Address: [address] [place] [address] Performed By: #### 2 4321-2, 88451-6, 3016-3, 12304-3, 2777-1 ####[facility] LABCLIA [id number] [place] [address] [place] Cholesterol non HDL [Mass/Vol] 57 mg/dL Normal <130 [facility] Comment on above: Order Comment: Speci men Type: BLOOD SPECIMENOrdering Facility: [facility] Address: [address] [place] [address] Result Comment: <130 mg/dL, Optimal 130-159 mg/dL, Near optimal/above optimal 160-189 mg/dL, Borderline high 190-219 mg/dL, High>219 mg/dL, Very highSecondary prevention optimal non HDL Cholesterol levels are recommended to be <100 mg/dL Performed By: #### 2 1-2, , 3, 15019-3, 2777-1 ####[facility] LABCLIA [id number] [place] [address] [place] Cholesterol.total/Ch olesterol in HDL [Mass ratio] 2.46 {ratio} Normal <5.10 [facility] Comment on above: Order Comment: Speci men Type: BLOOD SPECIMENOrdering Facility: [facility] Address: [address] [place] [address] Performed By: #### 2 4321-2, , 3, 71499-1, 2777-1 ####[facility] LABCLIA [id number] [place] [address] [place] FASTING TIME Unknown Normal [facility] Comment on above: Order Comment: Speci men Type: BLOOD SPECIMENOrdering Facility: [facility] Address: [address] [place] [address] Performed By: #### 2 4321-2, 54066-1, 3, 92912-3, 2777-1 ####[facility] LABCLIA [id number] [place] [address] [place] Triglyceride [Mass/Vol] 85 mg/dL Normal <150 [facility] Comment on above: Order Comment: Speci men Type: BLOOD SPECIMENOrdering Facility: [facility] Address: [address] [place] [address] Result Comment: <150 mg/dL, Normal 150-199 mg/dL, Borderline high 200-499 mg/dL, High>499 mg/dL, Very high Performed By: #### 2 4321-2, 92884-3, 3016-3, 27724-3, 2777-1 ####[facility] LABIA [id number] [place] [address] [place] Magnesium SerPl-ncon 06-16 Magnesium [Mass/Vol] 2.1 mg/dL Normal 1.7-2.3 [facility] Comment on above: Order Comment: Speci men Type: BLOOD SPECIMENOrdering Facility: [facility] Address: [address] [place] [address] Performed By: #### 2 4321-2, 34264-7, 6-3, 05659-8, 2777-1 ####[facility] LABIA [id number] [place] [address] [place] PTT, ANTICOAGULANT THERAPYon 06-16-2024 aPTT Coag (PPP) [Time] 64.6 s High 23.0-32.4 [facility] Comment on above: Order Comment: Speci men Type: BLOOD SPECIMENOrdering Facility: [facility] Address: [address] [place] [address] Performed By: #### P TTAC ####[facility] LABIA [id number] [place] [address] [place] Phosphate SerPl-mCncon 06-16 Phosphate [Mass/Vol] 4.7 mg/dL Normal 2.7-4.8 [facility] Comment on above: Order Comment: Speci men Type: BLOOD SPECIMENOrdering Facility: [facility] Address: [address] [place] [address] Performed By: #### 2 4321-2, 03392-9, 3016-3, 01240-9, 2777-1 ####[facility] LABCLIA [id number] [place] [address] [place] TSH SerPl-aCncon 06-16-2024 TSH Qn 2.830 m[IU]/L Normal 0.270-4.200 [facility] Comment on above: Order Comment: Speci men Type: BLOOD SPECIMENOrdering Facility: [facility] Address: [address] [place] [address] Performed By: #### 2 4321-2, 96950-7, 3015-3, 84870-7, 2777-1 ####[facility] LABCLIA [id number] [place] [address] [place] US CAROTID ARTERIES WING VAS LABon 06-16-2024 US CAROTID ARTERIES WING VAS LAB Normal [facility] US LEG VEIN MAP WING VAS LABo n 06-16-2024 US LEG VEIN MAP WING VAS LAB Normal [facility] US MAMMARY ARTERY WING VAS LA Bon 06-16-2024 US MAMMARY ARTERY WING VAS LAB Normal [facility] US RADIAL ARTERY MAP WING VAS LABon 06-16-2024 US RADIAL ARTERY MAP WING VAS LAB Normal [facility] Basic metabolic 2000 panelon 06-15-2024 Anion gap [Moles/Vol] 10 mmol/L Normal 8-15 [facility] Comment on above: Order Comment: Speci men Type: BLOOD SPECIMENOrdering Facility: [facility] Address: [address] [place] [id number] Performed By: #### 1 9123-9, 2777-1, 00419-4 ####[facility] LABIA [id number] [place] [address] [place] Calcium [Mass/Vol] 9.1 mg/dL Normal 8.5-10.2 [facility] Comment on above: Order Comment: Speci men Type: BLOOD SPECIMENOrdering Facility: [facility] Address: [address] [place] [address] Performed By: #### 1 9123-9, 2777-1, 42253-8 ####[facility] LABCLIA [id number] [place] [address] [place] Chloride [Moles/Vol] 102 mmol/L Normal 98-107 [facility] Comment on above: Order Comment: Speci men Type: BLOOD SPECIMENOrdering Facility: [facility] Address: [address] [place] [address] Performed By: #### 1 9123-9, 2777-1, 68477-4 ####[facility] LABCLIA [id number] [place] [address] [place] CO2 [Moles/Vol] 23 mmol/L Normal 22-30 [facility] Comment on above: Order Comment: Speci men Type: BLOOD SPECIMENOrdering Facility: [facility] Address: [address] [place] [address] Performed By: #### 1 9123-9, 2777-1, 65626-8 ####[facility] LABIA [id number] [place] [address] [place] Creatinine [Mass/Vol] 1.29 mg/dL High 0.73-1.22 [facility] Comment on above: Order Comment: Speci men Type: BLOOD SPECIMENOrdering Facility: [facility] Address: [address] [place] [address] Performed By: #### 1 9123-9, 2777-1, 76955-5 ####[facility] LABIA [id number] [place] [address] [place] Creatinine and Glomerular filtration rate.predicted panel (S/P/Bld) 57 mL/min/1.73m??? Low >=60 [facility] Comment on above: Order Comment: Speci men Type: BLOOD SPECIMENOrdering Facility: [facility] Address: [address] [place] [address] Result Comment: Annalisa mated Glomerular Filtration Rate (eGFR) is calculated using the 2020 CKD-EPI creatinine equation. This equation utilizes serum creatinine, sex, and age as parameters. The creatinine assay has traceable calibration to isotope dilution-mass spectrometry. Refer to KDIGO guidelines for clinical interpretation. In patients with unstable renal function, e.g. those with acute kidney injury, the eGFR may not accurately reflect actual GFR. Performed By: #### 1 9123-9, 2777-1, 22555-2 ####[facility] LABCLIA [id number] [place] [id number] [place] Glucose [Mass/Vol] 94 mg/dL Normal 74-99 [facility] Comment on above: Order Comment: Bobby villalpando Type: BLOOD SPECIMENOrdering Facility: [facility] Address: [address] [place] [address] Result Comment: The [place] Diabetes [employer] (ADA) provides guidance for cutoff values for fasting glucose and random glucose. The ADA defines fasting as no caloric intake for at least 8 hours. Fasting plasma glucose results between 100 to 125 mg/dL indicate increased risk for diabetes (prediabetes).Fasting plasma glucose results greater than or equal to 126 mg/dL meet the criteria for diagnosis of diabetes. In the absence of unequivocal hyperglycemia, results should be confirmed by repeat testing. In a patient with classic symptoms of hyperglycemia or hyperglycemic crisis, random plasma glucose results greater than or equal to 200 mg/dL meet the criteria for diagnosis of diabetes.Reference: Standards of Medical Care in Diabetes 2016, [place] [employer]. Diabetes Care. 2016.39(Suppl 1). Performed By: #### 1 9123-9, 2777-, 91853-5 ####[facility] LABIA [id number] [place] [id number] [place] Potassium [Moles/Vol] 4.5 mmol/L Normal 3.7-5.1 [facility] Comment on above: Order Comment: Bobby villalpando Type: BLOOD SPECIMENOrdering Facility: [facility] Address: [address] [place] [address] Performed By: #### 1 9123-9, 2777-1, 55370-1 ####[facility] LABCLIA [id number] [address] [address] [place] Sodium [Moles/Vol] 135 mmol/L Low 136-144 [facility] Comment on above: Order Comment: Speci men Type: BLOOD SPECIMENOrdering Facility: [facility] Address: [address] [place] [address] Performed By: #### 1 9123-9, 2777-, 37021-0 ####[facility] LABIA [id number] [place] [address] [place] Urea nitrogen [Mass/Vol] 25 mg/dL High 9-24 [facility] Comment on above: Order Comment: Speci men Type: BLOOD SPECIMENOrdering Facility: [facility] Address: [address] [place] [address] Performed By: #### 1 9123-9, 2777, 68391-6 ####[facility] LABIA [id number] [place] [id number] [place] CASE MANAGEMon 06-15-2024 CASE MANAGEM Normal [facility] CBC panel Auto (Bld)on 06-15 Erythrocyte distribution width (RBC) [Ratio] 13.9 % Normal 11.5-15.0 [facility] Comment on above: Order Comment: Speci men Type: BLOOD SPECIMENOrdering Facility: [facility] Address: [address] [place] [address] Performed By: #### 5 8410-2 ####[facility] LABIA [id number] [place] [id number] [place] Hematocrit (Bld) [Volume fraction] 47.3 % Normal 39.0-51.0 [facility] Comment on above: Order Comment: Speci men Type: BLOOD SPECIMENOrdering Facility: [facility] Address: [address] [place] [address] Performed By: #### 5 8410-2 ####[facility] LABIA [id number] [place] [address] [place] Hemoglobin (Bld) [Mass/Vol] 15.4 g/dL Normal 13.0-17.0 [facility] Comment on above: Order Comment: Speci men Type: BLOOD SPECIMENOrdering Facility: [facility] Address: [address] [place] [address] Performed By: #### 5 8410-2 ####[facility] LABIA [id number] [place] [address] [place] MCH (RBC) [Entitic mass] 29.6 pg Normal 26.0-34.0 [facility] Comment on above: Order Comment: Speci men Type: BLOOD SPECIMENOrdering Facility: [facility] Address: [address] [place] [address] Performed By: #### 5 8410-2 ####[facility] [id number] [place] [address] [place] MCHC (RBC) [Mass/Vol] 32.6 g/dL Normal 30.5-36.0 [facility] Comment on above: Order Comment: Speci men Type: BLOOD SPECIMENOrdering Facility: [facility] Address: [address] [place] [address] Performed By: #### 5 8410-2 ####[facility] [id number] [place] [address] [place] MCV (RBC) [Entitic vol] 90.8 fL Normal 80.0-100.0 [facility] Comment on above: Order Comment: Speci men Type: BLOOD SPECIMENOrdering Facility: [facility] Address: [address] [place] [address] Performed By: #### 5 8410-2 ####[facility] [id number] [place] [address] [place] Nucleated RBC (Bld) [#/Vol] 10*3/uL Normal <0.01 [facility] Comment on above: Order Comment: Speci men Type: BLOOD SPECIMENOrdering Facility: [facility] Address: [address] [place] [address] Performed By: #### 5 8410-2 ####[facility] LABCLIA [id number] [place] [address] [place] Platelet mean volume (Bld) [Entitic vol] 10.4 fL Normal 9.0-12.7 [facility] Comment on above: Order Comment: Speci men Type: BLOOD SPECIMENOrdering Facility: [facility] Address: [address] [place] [address] Performed By: #### 5 8410-2 ####[facility] LABCLIA [id number] [place] [address] [place] Platelets (Bld) [#/Vol] 161 10*3/uL Normal 150-400 [facility] Comment on above: Order Comment: Speci men Type: BLOOD SPECIMENOrdering Facility: [facility] Address: [address] [place] [address] Performed By: #### 5 8410-2 ####[facility] LABIA [id number] [place] [address] [place] RBC (Bld) [#/Vol] 5.21 10*6/uL Normal 4.20-6.00 [facility] Comment on above: Order Comment: Speci men Type: BLOOD SPECIMENOrdering Facility: [facility] Address: [address] [place] [address] Performed By: #### 5 8410-2 ####[facility] LABCLIA [id number] [place] [address] [place] WBC (Bld) [#/Vol] 7.84 10*3/uL Normal 3.70-11.00 [facility] Comment on above: Order Comment: Speci men Type: BLOOD SPECIMENOrdering Facility: [facility] Address: [address] [place] [address] Performed By: #### 5 8410-2 ####[facility] LABCLIA [id number] [place] [address] [place] CNCOon 06-15-2024 CNCO Letter Text Normal [facility] CONSULT PROGon 06-15-2024 CONSULT PROG Normal [facility] ECG COMPLETEon 06-15-2024 ECG COMPLETE Normal [facility] Magnesium SerPl-mCncon 06-15 Magnesium [Mass/Vol] 2.1 mg/dL Normal 1.7-2.3 [facility] Comment on above: Order Comment: Speci men Type: BLOOD SPECIMENOrdering Facility: [facility] Address: [address] [place] [address] Performed By: #### 1 9123-9, 2777-1, 67512-2 ####[facility] LABCLIA [id number] [place] [address] [place] PTT, ANTICOAGULANT THERAPYon 06-15-2024 aPTT Coag (PPP) [Time] 57.8 s High 23.0-32.4 [facility] Comment on above: Order Comment: Speci men Type: BLOOD SPECIMENOrdering Facility: [facility] Address: [address] [place] [address] Performed By: #### P TTAC ####[facility] LABIA [id number] [place] [address] [place] aPTT Coag (PPP) [Time] 54.9 s High 23.0-32.4 [facility] Comment on above: Order Comment: Speci men Type: BLOOD SPECIMENOrdering Facility: [facility] Address: [address] [place] [address] Performed By: #### P TTAC ####[facility] LABCLIA [id number] [place] [address] [place] aPTT Coag (PPP) [Time] 43.8 s High 23.0-32.4 [facility] Comment on above: Order Comment: Speci men Type: BLOOD SPECIMENOrdering Facility: [facility] Address: [address] [place] [address] Performed By: #### P TTAC ####[facility] LABCLIA [id number] [place] [address] [place] Phosphate SerPl-mCncon 06-15 Phosphate [Mass/Vol] 4.3 mg/dL Normal 2.7-4.8 [facility] Comment on above: Order Comment: Speci men Type: BLOOD SPECIMENOrdering Facility: [facility] Address: [address] [place] [address] Performed By: #### 1 9123-9, 2777-1, 68687-5 ####[facility] LABCLIA [id number] [place] [address] [place] Basic metabolic 2000 panelon 06-14-2024 Anion gap [Moles/Vol] 11 mmol/L Normal 8-15 [facility] Comment on above: Order Comment: Speci men Type: BLOOD SPECIMENOrdering Facility: [facility] Address: [address] [place] [address] Performed By: #### 2 4321-2, 17234-0, 2777-1 ####[facility] LABCLIA [id number] [place] [address] [place] Calcium [Mass/Vol] 9.2 mg/dL Normal 8.5-10.2 [facility] Comment on above: Order Comment: Speci men Type: BLOOD SPECIMENOrdering Facility: [facility] Address: [address] [place] [address] Performed By: #### 2 4321-2, 69271-8, 2777-1 ####[facility] LABCLIA [id number] [place] [address] [place] Chloride [Moles/Vol] 102 mmol/L Normal 98-107 [facility] Comment on above: Order Comment: Speci men Type: BLOOD SPECIMENOrdering Facility: [facility] Address: [address] [place] [address] Performed By: #### 2 4321-2, , 2776-11 ####[facility] LABCLIA [id number] [place] [address] [place] CO2 [Moles/Vol] 21 mmol/L Low 22-30 [facility] Comment on above: Order Comment: Speci men Type: BLOOD SPECIMENOrdering Facility: [facility] Address: [address] [place] [address] Performed By: #### 2 4321-2, , 2776-11 ####[facility] LABCLIA [id number] [place] [address] [place] Creatinine [Mass/Vol] 1.41 mg/dL High 0.73-1.22 [facility] Comment on above: Order Comment: Speci men Type: BLOOD SPECIMENOrdering Facility: [facility] Address: [address] [place] [address] Performed By: #### 2 4321-2, , 2776-11 ####[facility] LABCLIA [id number] [place] [address] [place] Creatinine and Glomerular filtration rate.predicted panel (S/P/Bld) 52 mL/min/1.73m??? Low >=60 [facility] Comment on above: Order Comment: Speci men Type: BLOOD SPECIMENOrdering Facility: [facility] Address: [address] [place] [address] Result Comment: Annalisa mated Glomerular Filtration Rate (eGFR) is calculated using the 2020 CKD-EPI creatinine equation. This equation utilizes serum creatinine, sex, and age as parameters. The creatinine assay has traceable calibration to isotope dilution-mass spectrometry. Refer to KDIGO guidelines for clinical interpretation. In patients with unstable renal function, e.g. those with acute kidney injury, the eGFR may not accurately reflect actual GFR. Performed By: #### 2 4321-2, , 2776-11 ####[facility] LABCLIA [id number] [address] [address] [place] Glucose [Mass/Vol] 97 mg/dL Normal 74-99 [facility] Comment on above: Order Comment: Speci men Type: BLOOD SPECIMENOrdering Facility: [facility] Address: [address] [place] [address] Result Comment: The [place] Diabetes [employer] (ADA) provides guidance for cutoff values for fasting glucose and random glucose. The ADA defines fasting as no caloric intake for at least 8 hours. Fasting plasma glucose results between 100 to 125 mg/dL indicate increased risk for diabetes (prediabetes).Fasting plasma glucose results greater than or equal to 126 mg/dL meet the criteria for diagnosis of diabetes. In the absence of unequivocal hyperglycemia, results should be confirmed by repeat testing. In a patient with classic symptoms of hyperglycemia or hyperglycemic crisis, random plasma glucose results greater than or equal to 200 mg/dL meet the criteria for diagnosis of diabetes.Reference: Standards of Medical Care in Diabetes 2016, [place] [employer]. Diabetes Care. 2016.39(Suppl 1). Performed By: #### 2 4321-2, , 2776-11 ####[facility] LABCLIA [id number] [place] [address] [place] Potassium [Moles/Vol] 4.6 mmol/L Normal 3.7-5.1 [facility] Comment on above: Order Comment: Speci men Type: BLOOD SPECIMENOrdering Facility: [facility] Address: [address] [place] [address] Performed By: #### 2 4321-2, , 2776-11 ####[facility] LABCLIA [id number] [facility] [place] [id number] [place] Sodium [Moles/Vol] 134 mmol/L Low 136-144 [facility] Comment on above: Order Comment: Speci men Type: BLOOD SPECIMENOrdering Facility: [facility] Address: [address] [place] [address] Performed By: #### 2 4321-2, , 2776-11 ####[facility] LABCLIA [id number] [place] [address] [place] Urea nitrogen [Mass/Vol] 31 mg/dL High 9-24 [facility] Comment on above: Order Comment: Speci men Type: BLOOD SPECIMENOrdering Facility: [facility] Address: [address] [place] [address] Performed By: #### 2 4321-2, , 2776-11 ####[facility] LABCLIA [id number] [place] [address] [place] CBC panel Auto (Bld)on 06-14 Erythrocyte distribution width (RBC) [Ratio] 14.0 % Normal 11.5-15.0 [facility] Comment on above: Order Comment: Speci men Type: BLOOD SPECIMENOrdering Facility: [facility] Address: [address] [place] [address] Performed By: #### 5 8410-2 ####[facility] LABIA [id number] [place] [address] [place] Hematocrit (Bld) [Volume fraction] 47.4 % Normal 39.0-51.0 [facility] Comment on above: Order Comment: Speci men Type: BLOOD SPECIMENOrdering Facility: [facility] Address: [address] [place] [address] Performed By: #### 5 8410-2 ####[facility] LABIA [id number] [place] [address] [place] Hemoglobin (Bld) [Mass/Vol] 15.4 g/dL Normal 13.0-17.0 [facility] Comment on above: Order Comment: Speci men Type: BLOOD SPECIMENOrdering Facility: [facility] Address: [address] [place] [address] Performed By: #### 5 8410-2 ####[facility] LABIA [id number] [place] [address] [place] MCH (RBC) [Entitic mass] 29.9 pg Normal 26.0-34.0 [facility] Comment on above: Order Comment: Speci men Type: BLOOD SPECIMENOrdering Facility: [facility] Address: [address] [place] [address] Performed By: #### 5 8410-2 ####[facility] LABIA [id number] [place] [address] [place] MCHC (RBC) [Mass/Vol] 32.5 g/dL Normal 30.5-36.0 [facility] Comment on above: Order Comment: Speci men Type: BLOOD SPECIMENOrdering Facility: [facility] Address: [address] [place] [address] Performed By: #### 5 8410-2 ####[facility] LABIA [id number] [place] [address] [place] MCV (RBC) [Entitic vol] 92.0 fL Normal 80.0-100.0 [facility] Comment on above: Order Comment: Speci men Type: BLOOD SPECIMENOrdering Facility: [facility] Address: [address] [place] [address] Performed By: #### 5 8410-2 ####[facility] LABIA [id number] [place] [address] [place] Nucleated RBC (Bld) [#/Vol] 10*3/uL Normal <0.01 [facility] Comment on above: Order Comment: Speci men Type: BLOOD SPECIMENOrdering Facility: [facility] Address: [address] [place] [address] Performed By: #### 5 8410-2 ####[facility] LABCLIA [id number] [place] [address] [place] Platelet mean volume (Bld) [Entitic vol] 10.2 fL Normal 9.0-12.7 [facility] Comment on above: Order Comment: Speci men Type: BLOOD SPECIMENOrdering Facility: [facility] Address: [address] [place] [address] Performed By: #### 5 8410-2 ####[facility] LABIA [id number] [place] [address] [place] Platelets (Bld) [#/Vol] 154 10*3/uL Normal 150-400 [facility] Comment on above: Order Comment: Speci men Type: BLOOD SPECIMENOrdering Facility: [facility] Address: [address] [place] [address] Performed By: #### 5 8410-2 ####[facility] LABIA [id number] [place] [address] [place] RBC (Bld) [#/Vol] 5.15 10*6/uL Normal 4.20-6.00 [facility] Comment on above: Order Comment: Speci men Type: BLOOD SPECIMENOrdering Facility: [facility] Address: [address] [place] [address] Performed By: #### 5 8410-2 ####[facility] LABIA [id number] [place] [address] [place] WBC (Bld) [#/Vol] 8.17 10*3/uL Normal 3.70-11.00 [facility] Comment on above: Order Comment: Speci men Type: BLOOD SPECIMENOrdering Facility: [facility] Address: [address] [place] [address] Performed By: #### 5 8410-2 ####[facility] LABCLIA [id number] [place] [address] [place] CONSULT PROGon 06-14-2024 CONSULT PROG Normal [facility] Magnesium SerPl-mCncon 06-14 Magnesium [Mass/Vol] 2.1 mg/dL Normal 1.7-2.3 [facility] Comment on above: Order Comment: Speci men Type: BLOOD SPECIMENOrdering Facility: [facility] Address: [address] [place] [address] Performed By: #### 2 4321-2, 51502-1, 2777-1 ####[facility] LABCLIA [id number] [place] [address] [place] PTT, ANTICOAGULANT THERAPYon 06-14-2024 aPTT Coag (PPP) [Time] 53.3 s High 23.0-32.4 [facility] Comment on above: Order Comment: Speci men Type: BLOOD SPECIMENOrdering Facility: [facility] Address: [address] [place] [address] Performed By: #### P TTAC ####[facility] LABIA [id number] [place] [address] [place] aPTT Coag (PPP) [Time] 60.8 s High 23.0-32.4 [facility] Comment on above: Order Comment: Speci men Type: BLOOD SPECIMENOrdering Facility: [facility] Address: [address] [place] [address] Performed By: #### P TTAC ####[facility] LABIA [id number] [place] [address] [place] aPTT Coag (PPP) [Time] 80.3 s High 23.0-32.4 [facility] Comment on above: Order Comment: Speci men Type: BLOOD SPECIMENOrdering Facility: [facility] Address: [address] [place] [address] Performed By: #### P TTAC ####[facility] LABIA [id number] [place] [address] [place] Phosphate SerPl-mCncon 06-14 Phosphate [Mass/Vol] 4.4 mg/dL Normal 2.7-4.8 [facility] Comment on above: Order Comment: Speci men Type: BLOOD SPECIMENOrdering Facility: [facility] Address: [address] [place] [address] Performed By: #### 2 4321-2, 83803-2, 2776-11 ####[facility] LABCLIA [id number] [facility] [place] [id number] [place] Basic metabolic 2000 panelon 06-13-2024 Anion gap [Moles/Vol] 10 mmol/L Normal 8-15 [facility] Comment on above: Order Comment: Speci men Type: BLOOD SPECIMENOrdering Facility: [facility] Address: [address] [place] [address] Performed By: #### 2 4321-2, , 2776-11 ####[facility] LABCLIA [id number] [place] [address] [place] Calcium [Mass/Vol] 9.4 mg/dL Normal 8.5-10.2 [facility] Comment on above: Order Comment: Speci men Type: BLOOD SPECIMENOrdering Facility: [facility] Address: [address] [place] [address] Performed By: #### 2 4321-2, , 2776-11 ####[facility] LABCLIA [id number] [place] [id number] [place] Chloride [Moles/Vol] 102 mmol/L Normal 98-107 [facility] Comment on above: Order Comment: Speci men Type: BLOOD SPECIMENOrdering Facility: [facility] Address: [address] [place] [address] Performed By: #### 2 4321-2, , 2776-11 ####[facility] LABCLIA [id number] [facility] [place] [id number] [place] CO2 [Moles/Vol] 24 mmol/L Normal 22-30 [facility] Comment on above: Order Comment: Speci men Type: BLOOD SPECIMENOrdering Facility: [facility] Address: [address] [place] [address] Performed By: #### 2 4321-2, , 2776-11 ####[facility] LABCLIA [id number] [place] [address] [place] Creatinine [Mass/Vol] 1.42 mg/dL High 0.73-1.22 [facility] Comment on above: Order Comment: Speci men Type: BLOOD SPECIMENOrdering Facility: [facility] Address: [address] [place] [address] Performed By: #### 2 4321-2, , 2776-11 ####[facility] LABCLIA [id number] [place] [address] [place] Creatinine and Glomerular filtration rate.predicted panel (S/P/Bld) 51 mL/min/1.73m??? Low >=60 [facility] Comment on above: Order Comment: Chandanai men Type: BLOOD SPECIMENOrdering Facility: [facility] Address: [address] [place] [address] Result Comment: Annalisa mated Glomerular Filtration Rate (eGFR) is calculated using the 2020 CKD-EPI creatinine equation. This equation utilizes serum creatinine, sex, and age as parameters. The creatinine assay has traceable calibration to isotope dilution-mass spectrometry. Refer to KDIGO guidelines for clinical interpretation. In patients with unstable renal function, e.g. those with acute kidney injury, the eGFR may not accurately reflect actual GFR. Performed By: #### 2 4321-2, , 2776-11 ####[facility] LABCLIA [id number] [place] [address] [place] Glucose [Mass/Vol] 90 mg/dL Normal 74-99 [facility] Comment on above: Order Comment: Speci men Type: BLOOD SPECIMENOrdering Facility: [facility] Address: [address] [place] [address] Result Comment: The [place] [employer] (ADA) provides guidance for cutoff values for fasting glucose and random glucose. The ADA defines fasting as no caloric intake for at least 8 hours. Fasting plasma glucose results between 100 to 125 mg/dL indicate increased risk for diabetes (prediabetes).Fasting plasma glucose results greater than or equal to 126 mg/dL meet the criteria for diagnosis of diabetes. In the absence of unequivocal hyperglycemia, results should be confirmed by repeat testing. In a patient with classic symptoms of hyperglycemia or hyperglycemic crisis, random plasma glucose results greater than or equal to 200 mg/dL meet the criteria for diagnosis of diabetes.Reference: Standards of Medical Care in Diabetes 2016, [place] [employer]. Diabetes Care. 2016.39(Suppl 1). Performed By: #### 2 4321-2, , 2776-11 ####[facility] LABCLIA [id number] [place] [address] [place] Potassium [Moles/Vol] 4.6 mmol/L Normal 3.7-5.1 [facility] Comment on above: Order Comment: Speci men Type: BLOOD SPECIMENOrdering Facility: [facility] Address: [address] [place] [address] Performed By: #### 2 432-2, , 2776-11 ####[facility] LABCLIA [id number] [address] [address] [place] Sodium [Moles/Vol] 136 mmol/L Normal 136-144 [facility] Comment on above: Order Comment: Speci men Type: BLOOD SPECIMENOrdering Facility: [facility] Address: [address] [place] [address] Performed By: #### 2 432-2, , 2776-11 ####[facility] LABCLIA [id number] [address] [address] [place] Urea nitrogen [Mass/Vol] 28 mg/dL High 9-24 [facility] Comment on above: Order Comment: Speci men Type: BLOOD SPECIMENOrdering Facility: [facility] Address: [address] [place] [address] Performed By: #### 2 4321-2, 07472-9, 2777-1 ####[facility] LABIA [id number] [place] [address] [place] CBC panel Auto (Bld)on 06-13 Erythrocyte distribution width (RBC) [Ratio] 13.8 % Normal 11.5-15.0 [facility] Comment on above: Order Comment: Speci men Type: BLOOD SPECIMENOrdering Facility: [facility] Address: [address] [place] [address] Performed By: #### 5 8410-2 ####[facility] LABIA [id number] [address] [place] Hematocrit (Bld) [Volume fraction] 49.1 % Normal 39.0-51.0 [facility] Comment on above: Order Comment: Speci men Type: BLOOD SPECIMENOrdering Facility: [facility] Address: [address] [place] [address] Performed By: #### 5 8410-2 ####[facility] LABIA [id number] [address] [place] Hemoglobin (Bld) [Mass/Vol] 15.7 g/dL Normal 13.0-17.0 [facility] Comment on above: Order Comment: Speci men Type: BLOOD SPECIMENOrdering Facility: [facility] Address: [address] [place] [address] Performed By: #### 5 8410-2 ####[facility] LABIA [id number] [place] [address] [place] MCH (RBC) [Entitic mass] 29.4 pg Normal 26.0-34.0 [facility] Comment on above: Order Comment: Speci men Type: BLOOD SPECIMENOrdering Facility: [facility] Address: [address] [place] [address] Performed By: #### 5 8410-2 ####[facility] LABCLIA [id number] [place] [address] [place] MCHC (RBC) [Mass/Vol] 32.0 g/dL Normal 30.5-36.0 [facility] Comment on above: Order Comment: Speci men Type: BLOOD SPECIMENOrdering Facility: [facility] Address: [address] [place] [address] Performed By: #### 5 8410-2 ####[facility] LABCLIA [id number] [place] [address] [place] MCV (RBC) [Entitic vol] 91.9 fL Normal 80.0-100.0 [facility] Comment on above: Order Comment: Speci men Type: BLOOD SPECIMENOrdering Facility: [facility] Address: [address] [place] [address] Performed By: #### 5 8410-2 ####[facility] LABIA [id number] [place] [address] [place] Nucleated RBC (Bld) [#/Vol] 10*3/uL Normal <0.01 [facility] Comment on above: Order Comment: Speci men Type: BLOOD SPECIMENOrdering Facility: [facility] Address: [address] [place] [address] Performed By: #### 5 8410-2 ####[facility] LABIA [id number] [place] [address] [place] Platelet mean volume (Bld) [Entitic vol] 10.5 fL Normal 9.0-12.7 [facility] Comment on above: Order Comment: Speci men Type: BLOOD SPECIMENOrdering Facility: [facility] Address: [address] [place] [address] Performed By: #### 5 8410-2 ####[facility] LABIA [id number] [place] [address] [place] Platelets (Bld) [#/Vol] 160 10*3/uL Normal 150-400 [facility] Comment on above: Order Comment: Speci men Type: BLOOD SPECIMENOrdering Facility: [facility] Address: [address] [place] [address] Performed By: #### 5 8410-2 ####[facility] LABCLIA [id number] [place] [address] [place] RBC (Bld) [#/Vol] 5.34 10*6/uL Normal 4.20-6.00 [facility] Comment on above: Order Comment: Speci men Type: BLOOD SPECIMENOrdering Facility: [facility] Address: [address] [place] [address] Performed By: #### 5 8410-2 ####[facility] LABCLIA [id number] [place] [address] [place] WBC (Bld) [#/Vol] 7.75 10*3/uL Normal 3.70-11.00 [facility] Comment on above: Order Comment: Speci men Type: BLOOD SPECIMENOrdering Facility: [facility] Address: [address] [place] [address] Performed By: #### 5 8410-2 ####[facility] LABIA [id number] [place] [address] [place] CONSULT PROGon 06-13-2024 CONSULT PROG Normal [facility] Magnesium SerPl-mCncon 06-13 Magnesium [Mass/Vol] 2.1 mg/dL Normal 1.7-2.3 [facility] Comment on above: Order Comment: Speci men Type: BLOOD SPECIMENOrdering Facility: [facility] Address: [address] [place] [address] Performed By: #### 2 4321-2, 25598-7, 2777-1 ####[facility] LABCLIA [id number] [place] [address] [place] PTT, ANTICOAGULANT THERAPYon 06-13-2024 aPTT Coag (PPP) [Time] 46.9 s High 23.0-32.4 [facility] Comment on above: Order Comment: Speci men Type: BLOOD SPECIMENOrdering Facility: [facility] Address: [address] [place] [address] Performed By: #### P TTAC ####[facility] LABCLIA [id number] [place] [address] [place] aPTT Coag (PPP) [Time] 72.1 s High 23.0-32.4 [facility] Comment on above: Order Comment: Speci men Type: BLOOD SPECIMENOrdering Facility: [facility] Address: [address] [place] [address] Performed By: #### P TTAC ####[facility] LABCLIA [id number] [place] [address] [place] aPTT Coag (PPP) [Time] 46.6 s High 23.0-32.4 [facility] Comment on above: Order Comment: Speci men Type: BLOOD SPECIMENOrdering Facility: [facility] Address: [address] [place] [address] Performed By: #### P TTAC ####[facility] LABCLIA [id number] [place] [address] [place] PVR ANK PRESS [employer]ING [facility]AS LABon 06-13-2024 PVR ANK PRESS [facility]ING [facility] LAB Normal [facility] Phosphate SerPl-mCncon 06-13 Phosphate [Mass/Vol] 4.1 mg/dL Normal 2.7-4.8 [facility] Comment on above: Order Comment: Speci men Type: BLOOD SPECIMENOrdering Facility: [facility] Address: [address] [place] [address] Performed By: #### 2 4321-2, 66920-2, 2777-1 ####[facility] LABCLIA [id number] [address] [address] [place] Basic metabolic 2000 panelon 06-12-2024 Anion gap [Moles/Vol] 11 mmol/L Normal 8-15 [facility] Comment on above: Order Comment: Speci men Type: BLOOD SPECIMENOrdering Facility: [facility] Address: [address] [place], [place] [address] Performed By: #### 2 4321-2, , 2776-11 ####[facility] LABCLIA [id number] [address] [address] [place] Calcium [Mass/Vol] 9.3 mg/dL Normal 8.5-10.2 [facility] Comment on above: Order Comment: Speci men Type: BLOOD SPECIMENOrdering Facility: [facility] Address: [address] [place] [address] Performed By: #### 2 432-2, , 2776-11 ####[facility] LABIA [id number] [address] [address] [place] Chloride [Moles/Vol] 100 mmol/L Normal 98-107 [facility] Comment on above: Order Comment: Speci men Type: BLOOD SPECIMENOrdering Facility: [facility] Address: [address] [place] [address] Performed By: #### 2 4321-2, , 2776-11 ####[facility] LABCLIA [id number] [address] [address] [place] CO2 [Moles/Vol] 24 mmol/L Normal 22-30 [facility] Comment on above: Order Comment: Speci men Type: BLOOD SPECIMENOrdering Facility: [facility] Address: [address] [place] [address] Performed By: #### 2 4321-2, , 2776- ####[facility] LABCLIA [id number] [address] [address] [place] Creatinine [Mass/Vol] 1.38 mg/dL High 0.73-1.22 [facility] Comment on above: Order Comment: Bobby villalpando Type: BLOOD SPECIMENOrdering Facility: [facility] Address: [address] [place] [address] Performed By: #### 2 4321-2, 09852-9, 2776-11 ####[facility] LABIA [id number] [place] [address] [place] Creatinine and Glomerular filtration rate.predicted panel (S/P/Bld) 53 mL/min/1.73m??? Low >=60 [facility] Comment on above: Order Comment: Bobby villalpando Type: BLOOD SPECIMENOrdering Facility: [facility] Address: [address] [place] [address] Result Comment: Annalisa mated Glomerular Filtration Rate (eGFR) is calculated using the 2020 CKD-EPI creatinine equation. This equation utilizes serum creatinine, sex, and age as parameters. The creatinine assay has traceable calibration to isotope dilution-mass spectrometry. Refer to KDIGO guidelines for clinical interpretation. In patients with unstable renal function, e.g. those with acute kidney injury, the eGFR may not accurately reflect actual GFR. Performed By: #### 2 4321-2, , 2776-11 ####[facility] LABIA [id number] [place] [address] [place] Glucose [Mass/Vol] 94 mg/dL Normal 74-99 [facility] Comment on above: Order Comment: Bobby villalpando Type: BLOOD SPECIMENOrdering Facility: [facility] Address: [address] [place] [address] Result Comment: The [place] [employer] (ADA) provides guidance for cutoff values for fasting glucose and random glucose. The ADA defines fasting as no caloric intake for at least 8 hours. Fasting plasma glucose results between 100 to 125 mg/dL indicate increased risk for diabetes (prediabetes).Fasting plasma glucose results greater than or equal to 126 mg/dL meet the criteria for diagnosis of diabetes. In the absence of unequivocal hyperglycemia, results should be confirmed by repeat testing. In a patient with classic symptoms of hyperglycemia or hyperglycemic crisis, random plasma glucose results greater than or equal to 200 mg/dL meet the criteria for diagnosis of diabetes.Reference: Standards of Medical Care in Diabetes 2016, [place] [employer]. Diabetes Care. 2016.39(Suppl 1). Performed By: #### 2 4321-2, , 2776-11 ####[facility] LABCLIA [id number] [place] [id number] [place] Potassium [Moles/Vol] 4.3 mmol/L Normal 3.7-5.1 [facility] Comment on above: Order Comment: Speci men Type: BLOOD SPECIMENOrdering Facility: [facility] Address: [address] [place] [address] Performed By: #### 2 432-2, , 2776-11 ####[facility] LABCLIA [id number] [place] [address] [place] Sodium [Moles/Vol] 135 mmol/L Low 136-144 [facility] Comment on above: Order Comment: Speci men Type: BLOOD SPECIMENOrdering Facility: [facility] Address: [address] [place] [address] Performed By: #### 2 4320-2, , 2776-11 ####[facility] LABCLIA [id number] [place] [address] [place] Urea nitrogen [Mass/Vol] 20 mg/dL Normal 9-24 [facility] Comment on above: Order Comment: Speci men Type: BLOOD SPECIMENOrdering Facility: [facility] Address: [address] [place] [address] Performed By: #### 2 432-2, , 2776-11 ####[facility] LABCLIA [id number] [address] [address] [place] CASE MGT INIT ASSESon 2023 CASE MGT INIT ASSES Normal [facility] CBC panel Auto (Bld)on 06-12 Erythrocyte distribution width (RBC) [Ratio] 14.0 % Normal 11.5-15.0 [facility] Comment on above: Order Comment: Speci men Type: BLOOD SPECIMENOrdering Facility: [facility] Address: [address] [place] [address] Performed By: #### 5 8410-2 ####[facility] LABCLIA [id number] [place] [address] [place] Hematocrit (Bld) [Volume fraction] 44.3 % Normal 39.0-51.0 [facility] Comment on above: Order Comment: Speci men Type: BLOOD SPECIMENOrdering Facility: [facility] Address: [address] [place] [address] Performed By: #### 5 8410-2 ####[facility] LABCLIA [id number] [place] [address] [place] Hemoglobin (Bld) [Mass/Vol] 14.5 g/dL Normal 13.0-17.0 [facility] Comment on above: Order Comment: Speci men Type: BLOOD SPECIMENOrdering Facility: [facility] Address: [address] [place] [address] Performed By: #### 5 8410-2 ####[facility] LABCLIA [id number] [place] [address] [place] MCH (RBC) [Entitic mass] 29.5 pg Normal 26.0-34.0 [facility] Comment on above: Order Comment: Speci men Type: BLOOD SPECIMENOrdering Facility: [facility] Address: [address] [place] [address] Performed By: #### 5 8410-2 ####[facility] LABCLIA [id number] [place] [address] [place] MCHC (RBC) [Mass/Vol] 32.7 g/dL Normal 30.5-36.0 [facility] Comment on above: Order Comment: Speci men Type: BLOOD SPECIMENOrdering Facility: [facility] Address: [address] [place] [address] Performed By: #### 5 8410-2 ####[facility] LABIA [id number] [place] [address] [place] MCV (RBC) [Entitic vol] 90.0 fL Normal 80.0-100.0 [facility] Comment on above: Order Comment: Speci men Type: BLOOD SPECIMENOrdering Facility: [facility] Address: [address] [place] [address] Performed By: #### 5 8410-2 ####[facility] [id number] [place] [address] [place] Nucleated RBC (Bld) [#/Vol] 10*3/uL Normal <0.01 [facility] Comment on above: Order Comment: Speci men Type: BLOOD SPECIMENOrdering Facility: [facility] Address: [address] [place] [address] Performed By: #### 5 8410-2 ####[facility] [id number] [place] [address] [place] Platelet mean volume (Bld) [Entitic vol] 10.1 fL Normal 9.0-12.7 [facility] Comment on above: Order Comment: Speci men Type: BLOOD SPECIMENOrdering Facility: [facility] Address: [address] [place] [address] Performed By: #### 5 8410-2 ####[facility] LABIA [id number] [place] [address] [place] Platelets (Bld) [#/Vol] 168 10*3/uL Normal 150-400 [facility] Comment on above: Order Comment: Speci men Type: BLOOD SPECIMENOrdering Facility: [facility] Address: [address] [place] [address] Performed By: #### 5 8410-2 ####[facility] LABCLIA [id number] [place] [address] [place] RBC (Bld) [#/Vol] 4.92 10*6/uL Normal 4.20-6.00 [facility] Comment on above: Order Comment: Speci men Type: BLOOD SPECIMENOrdering Facility: [facility] Address: [address] [place] [address] Performed By: #### 5 8410-2 ####[facility] LABIA [id number] [place] [address] [place] WBC (Bld) [#/Vol] 8.88 10*3/uL Normal 3.70-11.00 [facility] Comment on above: Order Comment: Speci men Type: BLOOD SPECIMENOrdering Facility: [facility] Address: [address] [place] [address] Performed By: #### 5 8410-2 ####[facility] LABIA [id number] [place] [address] [place] Erythrocyte distribution width (RBC) [Ratio] 14.3 % Normal 11.5-15.0 [facility] Comment on above: Order Comment: Speci men Type: BLOOD SPECIMENOrdering Facility: [facility] Address: [address] [place] [address] Performed By: #### 5 8410-2 ####[facility] LABIA [id number] [place] [address] [place] Hematocrit (Bld) [Volume fraction] 45.1 % Normal 39.0-51.0 [facility] Comment on above: Order Comment: Speci men Type: BLOOD SPECIMENOrdering Facility: [facility] Address: [address] [place] [address] Performed By: #### 5 8410-2 ####[facility] LABIA [id number] [place] [address] [place] Hemoglobin (Bld) [Mass/Vol] 14.1 g/dL Normal 13.0-17.0 [facility] Comment on above: Order Comment: Speci men Type: BLOOD SPECIMENOrdering Facility: [facility] Address: [address] [place] [address] Performed By: #### 5 8410-2 ####[facility] LABIA [id number] [place] [address] [place] MCH (RBC) [Entitic mass] 28.5 pg Normal 26.0-34.0 [facility] Comment on above: Order Comment: Speci men Type: BLOOD SPECIMENOrdering Facility: [facility] Address: [address] [place] [address] Performed By: #### 5 8410-2 ####[facility] LABIA [id number] [place] [address] [place] MCHC (RBC) [Mass/Vol] 31.3 g/dL Normal 30.5-36.0 [facility] Comment on above: Order Comment: Speci men Type: BLOOD SPECIMENOrdering Facility: [facility] Address: [address] [place] [address] Performed By: #### 5 8410-2 ####[facility] LABIA [id number] [place] [address] [place] MCV (RBC) [Entitic vol] 91.3 fL Normal 80.0-100.0 [facility] Comment on above: Order Comment: Speci men Type: BLOOD SPECIMENOrdering Facility: [facility] Address: [address] [place] [address] Performed By: #### 5 8410-2 ####[facility] LABIA [id number] [place] [address] [place] Nucleated RBC (Bld) [#/Vol] 10*3/uL Normal <0.01 [facility] Comment on above: Order Comment: Speci men Type: BLOOD SPECIMENOrdering Facility: [facility] Address: [address] [place] [address] Performed By: #### 5 8410-2 ####[facility] LABIA [id number] [place] [address] [place] Platelet mean volume (Bld) [Entitic vol] 10.4 fL Normal 9.0-12.7 [facility] Comment on above: Order Comment: Speci men Type: BLOOD SPECIMENOrdering Facility: [facility] Address: [address] [place] [address] Performed By: #### 5 8410-2 ####[facility] LABIA [id number] [place] [address] [place] Platelets (Bld) [#/Vol] 158 10*3/uL Normal 150-400 [facility] Comment on above: Order Comment: Speci men Type: BLOOD SPECIMENOrdering Facility: [facility] Address: [address] [place] [address] Performed By: #### 5 8410-2 ####[facility] LABIA [id number] [place] [address] [place] RBC (Bld) [#/Vol] 4.94 10*6/uL Normal 4.20-6.00 [facility] Comment on above: Order Comment: Speci men Type: BLOOD SPECIMENOrdering Facility: [facility] Address: [address] [place] [address] Performed By: #### 5 8410-2 ####[facility] LABCLIA [id number] [place] [address] [place] WBC (Bld) [#/Vol] 7.08 10*3/uL Normal 3.70-11.00 [facility] Comment on above: Order Comment: Speci men Type: BLOOD SPECIMENOrdering Facility: [facility] Address: [address] [place] [address] Performed By: #### 5 8410-2 ####[facility] LABCLIA [id number] [place] [address] [place] CONFIRM BLOOD TYPEon 024 ABO A Normal [facility] Comment on above: Order Comment: Speci men Type: BLOOD SPECIMENOrdering Facility: [facility] Address: [address] [place] [address] Performed By: #### C ONABO ####[facility] BLOOD BANKCLIA [id number] [place] [address] [place] Rh Nom (Bld) Positive Normal [facility] Comment on above: Order Comment: Speci men Type: BLOOD SPECIMENOrdering Facility: [facility] Address: [address] [place] [address] Performed By: #### C ONABO ####[facility] [id number] [place] [address] [place] CONSULTon 06-12-2024 CONSULT Normal [facility] CONSULT Normal [facility] Magnesium SerPl-mCncon 06-12 Magnesium [Mass/Vol] 2.1 mg/dL Normal 1.7-2.3 [facility] Comment on above: Order Comment: Speci men Type: BLOOD SPECIMENOrdering Facility: [facility] Address: [address] [place] [address] Performed By: #### 2 4321-2, 61123-8, 2777-1 ####[facility] LABCLIA [id number] [place] [address] [place] PT panel Coag (PPP)on 2023 INR Coag (PPP) [Relative time] 1.0 {INR} Normal 0.9-1.3 [facility] Comment on above: Order Comment: Speci men Type: BLOOD SPECIMENOrdering Facility: [facility] Address: [address] [place] [address] Result Comment: Rizwana min K Antagonist (VKA) Therapeutic Range: INR 2 to 3 (Target INR of 2.5)Note: For patients treated with VKA drugs, such as warfarin, the [employer] 2012 Guideline recommends a therapeutic INR range of 2 to 3 (target INR of 2.5). This recommendation includes high-risk patients with antiphospholipid syndrome with previous arterial or venous thromboembolism, current-generation mechanical or bioprosthetic aortic heart valve replacement.Note: Patients with mechanical aortic valve replacement and additional risk factors for thromboembolic events (atrial fibrillation, previous thromboembolism, LV dysfunction, hypercoagulable conditions) or an older generation mechanical AVR (i.e., ball in-Cage) or any mechanical MVR should have a INR therapeutic range of 2.5 to 3.5 (target INR of 3).Es GH, et al. Chest 2012, 141:7S-47SNishimura RA, et al. [facility] 2017, 70: 252-289 Performed By: #### 1 4979-9, 87663-2 ####[facility] LABIA [id number] [place] [address] [place] PT Coag (PPP) [Time] 11.0 s Normal 9.7-13.0 [facility] Comment on above: Order Comment: Speci men Type: BLOOD SPECIMENOrdering Facility: [facility] Address: [address] [place] [address] Performed By: #### 1 4979-9, 07515-4 ####[facility] [id number] [place] [address] [place] Phosphate SerPl-mCncon 06-12 Phosphate [Mass/Vol] 4.2 mg/dL Normal 2.7-4.8 [facility] Comment on above: Order Comment: Speci men Type: BLOOD SPECIMENOrdering Facility: [facility] Address: [address] [place] [address] Performed By: #### 2 4321-2, 67375-8, 2777-1 ####[facility] LABIA [id number] [place] [address] [place] STAPHYLOCOCCUS AUREUS AND MR SA SCREEN, PCR, NASALon 06-12-2024 S. aureus and MRSA panel VENESSA+probe (Nose) Not detected Normal Not Detected [facility] Comment on above: Order Comment: Speci men Type: SWABOrdering Facility: [facility] Address: [address] [place] [address] Performed By: #### S APCR ####[facility] LABCLIA [id number] [place] [address] [place] THERAPY NTon 06-12-2024 THERAPY NT Normal [facility] Urinalysis complete panel (U )on 06-12-2024 Bacteria LM.HPF (Urine sed) [#/Area] Negative Normal Negative [facility] Comment on above: Order Comment: Speci men Type: URINE SPECIMENOrdering Facility: [facility] Address: [address] [place] [address] Performed By: #### 2 4356-8 ####[facility] LABCLIA [id number] [place] [address] [place] Bilirubin Ql (U) Negative Normal Negative [facility] Comment on above: Order Comment: Speci men Type: URINE SPECIMENOrdering Facility: [facility] Address: [address] [place] [address] Performed By: #### 2 4356-8 ####[facility] LABCLIA [id number] [place] [address] [place] Clarity (Unsp spec) Clear Normal Clear [facility] Comment on above: Order Comment: Speci men Type: URINE SPECIMENOrdering Facility: [facility] Address: [address] [place] [address] Performed By: #### 2 4356-8 ####[facility] LABCLIA [id number] [place] [address] [place] Color (U) Yellow Normal Yellow [facility] Comment on above: Order Comment: Speci men Type: URINE SPECIMENOrdering Facility: [facility] Address: [address] [place] [address] Performed By: #### 2 4356-8 ####[facility] LABCLIA [id number] [place] [address] [place] Epithelial cells LM.HPF (Urine sed) [#/Area] None Seen Normal [facility] Comment on above: Order Comment: Speci men Type: URINE SPECIMENOrdering Facility: [facility] Address: [address] [place] [address] Performed By: #### 2 4356-8 ####[facility] LABCLIA [id number] [place] [address] [place] Glucose Test strip (U) [Mass/Vol] Negative Normal Negative [facility] Comment on above: Order Comment: Speci men Type: URINE SPECIMENOrdering Facility: [facility] Address: [address] [place] [address] Performed By: #### 2 4356-8 ####[facility] LABCLIA [id number] [place] [address] [place] Hemoglobin Ql (U) Trace Abnormal Negative [facility] Comment on above: Order Comment: Speci men Type: URINE SPECIMENOrdering Facility: [facility] Address: [address] [place] [address] Performed By: #### 2 4356-8 ####[facility] LABCLIA [id number] [place] [address] [place] Hyaline casts (Urine sed) [#/Area] 1-3 /LPF Abnormal 0 /LPF [facility] Comment on above: Order Comment: Speci men Type: URINE SPECIMENOrdering Facility: [facility] Address: [address] [place] [address] Performed By: #### 2 4356-8 ####[facility] LABCLIA [id number] [place] [address] [place] Ketones Ql (U) Negative Normal Negative [facility] Comment on above: Order Comment: Speci men Type: URINE SPECIMENOrdering Facility: [facility] Address: [address] [place] [address] Performed By: #### 2 4356-8 ####[facility] LABCLIA [id number] [place] [address] [place] Leukocyte esterase Test strip Ql (U) Negative Normal Negative [facility] Comment on above: Order Comment: Speci men Type: URINE SPECIMENOrdering Facility: [facility] Address: [address] [place] [address] Performed By: #### 2 4356-8 ####[facility] LABCLIA [id number] [place] [address] [place] Nitrite Ql (U) Negative Normal Negative [facility] Comment on above: Order Comment: Speci men Type: URINE SPECIMENOrdering Facility: [facility] Address: [address] [place] [address] Performed By: #### 2 4356-8 ####[facility] LABCLIA [id number] [place] [address] [place] pH (U) 5.5 [pH] Normal <8.5 [facility] Comment on above: Order Comment: Speci men Type: URINE SPECIMENOrdering Facility: [facility] Address: [address] [place] [address] Performed By: #### 2 4356-8 ####[facility] LABCLIA [id number] [place] [address] [place] Protein (U) [Mass/Vol] 2+ Abnormal Negative [facility] Comment on above: Order Comment: Speci men Type: URINE SPECIMENOrdering Facility: [facility] Address: [address] [place] [address] Performed By: #### 2 4356-8 ####[facility] LABCLIA [id number] [place] [address] [place] RBC LM.HPF (Urine sed) [#/Area] 3-5 /HPF Abnormal 0-2 /HPF [facility] Comment on above: Order Comment: Speci men Type: URINE SPECIMENOrdering Facility: [facility] Address: [address] [place] [address] Performed By: #### 2 4356-8 ####[facility] [id number] [place] [address] [place] Specific gravity (U) [Rel density] 1.019 Normal 1.005-1.030 [facility] Comment on above: Order Comment: Speci men Type: URINE SPECIMENOrdering Facility: [facility] Address: [address] [place] [address] Performed By: #### 2 4356-8 ####[facility] [id number] [place] [address] [place] Urobilinogen Ql (U) 0.2 EU/dL Normal 0.2-1.0 EU/dL [facility] Comment on above: Order Comment: Speci men Type: URINE SPECIMENOrdering Facility: [facility] Address: [address] [place] [address] Performed By: #### 2 4356-8 ####[facility] [id number] [place] [address] [place] WBC LM.HPF (Urine sed) [#/Area] 6-10 /HPF Abnormal 0-5 /HPF [facility] Comment on above: Order Comment: Speci men Type: URINE SPECIMENOrdering Facility: [facility] Address: [address] [place] [address] Performed By: #### 2 4356-8 ####[facility] [id number] [place] [address] [place] aPTT PPPon 08-02-2024 aPTT Coag (PPP) [Time] 31.1 s Normal 23.0-32.4 [facility] Comment on above: Order Comment: Speci men Type: BLOOD SPECIMENOrdering Facility: [facility] Address: [address] [place] [address] Performed By: #### 1 4979-9, 15583-9 ####[facility] LABCLIA [id number] [place] [address] [place] CBC W Auto Differential pane l (Bld)on 06-11-2024 Basophils (Bld) [#/Vol] 0.04 10*3/uL Normal <0.11 [facility] Comment on above: Order Comment: Speci men Type: BLOOD SPECIMENOrdering Facility: [facility] Address: [address] [place] [address] Performed By: #### 5 7021-8 ####[facility] LABCLIA [id number] [place] [address] [place] Basophils/100 WBC (Bld) 0.5 % Normal [facility] Comment on above: Order Comment: Speci men Type: BLOOD SPECIMENOrdering Facility: [facility] Address: [address] [place] [address] Performed By: #### 5 7021-8 ####[facility] LABCLIA [id number] [place] [address] [place] Differential cell count method Nom (Bld) Auto Normal [facility] Comment on above: Order Comment: Speci men Type: BLOOD SPECIMENOrdering Facility: [facility] Address: [address] [place] [address] Performed By: #### 5 7021-8 ####[facility] LABCLIA [id number] [place] [address] [place] Eosinophils (Bld) [#/Vol] 0.18 10*3/uL Normal <0.46 [facility] Comment on above: Order Comment: Speci men Type: BLOOD SPECIMENOrdering Facility: [facility] Address: [address] [place] [address] Performed By: #### 5 7021-8 ####[facility] LABCLIA [id number] [place] [address] [place] Eosinophils/100 WBC (Bld) 2.1 % Normal [facility] Comment on above: Order Comment: Speci men Type: BLOOD SPECIMENOrdering Facility: [facility] Address: [address] [place] [address] Performed By: #### 5 7021-8 ####[facility] LABCLIA [id number] [place] [address] [place] Erythrocyte distribution width (RBC) [Ratio] 14.1 % Normal 11.5-15.0 [facility] Comment on above: Order Comment: Speci men Type: BLOOD SPECIMENOrdering Facility: [facility] Address: [address] [place] [address] Performed By: #### 5 7021-8 ####[facility] LABIA [id number] [place] [address] [place] Hematocrit (Bld) [Volume fraction] 46.4 % Normal 39.0-51.0 [facility] Comment on above: Order Comment: Speci men Type: BLOOD SPECIMENOrdering Facility: [facility] Address: [address] [place] [address] Performed By: #### 5 7021-8 ####[facility] LABCLIA [id number] [place] [address] [place] Hemoglobin (Bld) [Mass/Vol] 15.4 g/dL Normal 13.0-17.0 [facility] Comment on above: Order Comment: Speci men Type: BLOOD SPECIMENOrdering Facility: [facility] Address: [address] [place] [address] Performed By: #### 5 7021-8 ####[facility] LABCLIA [id number] [place] [address] [place] Immature granulocytes (Bld) [#/Vol] 0.16 10*3/uL High <0.10 [facility] Comment on above: Order Comment: Speci men Type: BLOOD SPECIMENOrdering Facility: [facility] Address: [address] [place] [address] Performed By: #### 5 7021-8 ####[facility] LABCLIA [id number] [place] [address] [place] Immature granulocytes/100 WBC (Bld) 1.9 % Normal [facility] Comment on above: Order Comment: Speci men Type: BLOOD SPECIMENOrdering Facility: [facility] Address: [address] [place] [address] Performed By: #### 5 7021-8 ####[facility] LABCLIA [id number] [place] [address] [place] Lymphocytes (Bld) [#/Vol] 1.95 10*3/uL Normal 1.00-4.00 [facility] Comment on above: Order Comment: Speci men Type: BLOOD SPECIMENOrdering Facility: [facility] Address: [address] [place] [address] Performed By: #### 5 7021-8 ####[facility] LABCLIA [id number] [place] [address] [place] Lymphocytes/100 WBC (Bld) 23.2 % Normal [facility] Comment on above: Order Comment: Speci men Type: BLOOD SPECIMENOrdering Facility: [facility] Address: [address] [place] [address] Performed By: #### 5 7021-8 ####[facility] LABCLIA [id number] [place] [address] [place] MCH (RBC) [Entitic mass] 29.4 pg Normal 26.0-34.0 [facility] Comment on above: Order Comment: Speci men Type: BLOOD SPECIMENOrdering Facility: [facility] Address: [address] [place] [address] Performed By: #### 5 7021-8 ####[facility] LABCLIA [id number] [place] [address] [place] MCHC (RBC) [Mass/Vol] 33.2 g/dL Normal 30.5-36.0 [facility] Comment on above: Order Comment: Speci men Type: BLOOD SPECIMENOrdering Facility: [facility] Address: [address] [place] [address] Performed By: #### 5 7021-8 ####[facility] LABIA [id number] [place] [address] [place] MCV (RBC) [Entitic vol] 88.7 fL Normal 80.0-100.0 [facility] Comment on above: Order Comment: Speci men Type: BLOOD SPECIMENOrdering Facility: [facility] Address: [address] [place] [address] Performed By: #### 5 7021-8 ####[facility] [facility] LABCLIA [id number] [place] [address] [place] Monocytes (Bld) [#/Vol] 0.83 10*3/uL Normal <0.87 [facility] Comment on above: Order Comment: Speci men Type: BLOOD SPECIMENOrdering Facility: [facility] Address: [address] [place] [address] Performed By: #### 5 7021-8 ####[facility] LABCLIA [id number] [place] [address] [place] Monocytes/100 WBC (Bld) 9.9 % Normal [facility] Comment on above: Order Comment: Speci men Type: BLOOD SPECIMENOrdering Facility: [facility] Address: [address] [place] [address] Performed By: #### 5 7021-8 ####[facility] LABCLIA [id number] [place] [address] [place] Neutrophils (Bld) [#/Vol] 5.24 10*3/uL Normal 1.45-7.50 [facility] Comment on above: Order Comment: Speci men Type: BLOOD SPECIMENOrdering Facility: [facility] Address: [address] [place] [address] Performed By: #### 5 7021-8 ####[facility] LABCLIA [id number] [place] [address] [place] Neutrophils/100 WBC (Bld) 62.4 % Normal [facility] Comment on above: Order Comment: Speci men Type: BLOOD SPECIMENOrdering Facility: [facility] Address: [address] [place] [address] Performed By: #### 5 7021-8 ####[facility] LABCLIA [id number] [place] [address] [place] Nucleated RBC (Bld) [#/Vol] 10*3/uL Normal <0.01 [facility] Comment on above: Order Comment: Speci men Type: BLOOD SPECIMENOrdering Facility: [facility] Address: [address] [place] [address] Performed By: #### 5 7021-8 ####[facility] LABCLIA [id number] [place] [address] [place] Nucleated RBC/100 WBC (Bld) [Ratio] 0.0 /100 WBC Normal [facility] Comment on above: Order Comment: Speci men Type: BLOOD SPECIMENOrdering Facility: [facility] Address: [address] [place] [address] Performed By: #### 5 7021-8 ####[facility] LABCLIA [id number] [place] [address] [place] Platelet mean volume (Bld) [Entitic vol] 10.2 fL Normal 9.0-12.7 [facility] Comment on above: Order Comment: Speci men Type: BLOOD SPECIMENOrdering Facility: [facility] Address: [address] [place] [address] Performed By: #### 5 7021-8 ####[facility] LABCLIA [id number] [place] [address] [place] Platelets (Bld) [#/Vol] 177 10*3/uL Normal 150-400 [facility] Comment on above: Order Comment: Speci men Type: BLOOD SPECIMENOrdering Facility: [facility] Address: [address] [place] [address] Performed By: #### 5 7021-8 ####[facility] LABIA [id number] [place] [address] [place] RBC (Bld) [#/Vol] 5.23 10*6/uL Normal 4.20-6.00 [facility] Comment on above: Order Comment: Speci men Type: BLOOD SPECIMENOrdering Facility: [facility] Address: [address] [place] [address] Performed By: #### 5 7021-8 ####[facility] LABIA [id number] [place] [address] [place] WBC (Bld) [#/Vol] 8.40 10*3/uL Normal 3.70-11.00 [facility] Comment on above: Order Comment: Speci men Type: BLOOD SPECIMENOrdering Facility: [facility] Address: [address] [place] [address] Performed By: #### 5 7021-8 ####[facility] LABIA [id number] [place] [address] [place] CEA SerPl-mCncon 06-11-2024 Carcinoembryonic Ag [Mass/Vol] 2.7 ng/mL Normal <=2.9 [facility] Comment on above: Order Comment: Speci men Type: BLOOD SPECIMENOrdering Facility: [facility] Address: [address] [place] [address] Result Comment: Carc inoembryonic antigen test is used as an aid in monitoring response to treatment or recurrence in patients with established colorectal, breast, lung, prostatic, pancreatic, and ovarian carcinomas. Clinical correlation is required.The Carcinoembryonic antigen test was performed using the [employer] DXI paramagnetic particle chemiluminescent immunoassay method. Results obtained with different assay methods or kits cannot be used interchangeably. Performed By: #### 2 039-6 ####[facility] LABCLIA [id number] [place] [id number] [place] Comprehensive metabolic 2000 panelon 06-11-2024 Albumin [Mass/Vol] 4.1 g/dL Normal 3.9-4.9 [facility] Comment on above: Order Comment: Speci men Type: BLOOD SPECIMENOrdering Facility: [facility] Address: [address] [place] [address] Performed By: #### 2 777-1, 62900-3, 3033-6, 62748-6 ####[facility] LABCLIA [id number] [place] [id number] [place] ALP [Catalytic activity/Vol] 46 U/L Normal 38-113 [facility] Comment on above: Order Comment: Speci men Type: BLOOD SPECIMENOrdering Facility: [facility] Address: [address] [place] [address] Performed By: #### 2 777-1, 99106-1, 3033-6, 17475-4 ####[facility] LABCLIA [id number] [place] [id number] [place] ALT [Catalytic activity/Vol] 22 U/L Normal 10-54 [facility] Comment on above: Order Comment: Speci men Type: BLOOD SPECIMENOrdering Facility: [facility] Address: [address] [place] [address] Performed By: #### 2 777-1, 98762-9, 3033-6, 80072-2 ####[facility] LABCLIA [id number] [address] [address] [place] Anion gap [Moles/Vol] 10 mmol/L Normal 8-15 [facility] Comment on above: Order Comment: Speci men Type: BLOOD SPECIMENOrdering Facility: [facility] Address: [address] [place] [address] Performed By: #### 2 777-1, 24715-8, 3033-6, 41617-4 ####[facility] LABCLIA [id number] [address] [address] [place] AST [Catalytic activity/Vol] 21 U/L Normal 14-40 [facility] Comment on above: Order Comment: Speci men Type: BLOOD SPECIMENOrdering Facility: [facility] Address: [address] [place] [address] Performed By: #### 2 777-1, 01147-1, 3033-6, 94233-0 ####[facility] LABCLIA [id number] [address] [address] [place] Bilirubin [Mass/Vol] 0.5 mg/dL Normal 0.2-1.3 [facility] Comment on above: Order Comment: Speci men Type: BLOOD SPECIMENOrdering Facility: [facility] Address: [address] [place] [address] Performed By: #### 2 777-1, 81692-1, 3033-6, 30215-5 ####[facility] LABCLIA [id number] [address] [address] [place] Calcium [Mass/Vol] 9.5 mg/dL Normal 8.5-10.2 [facility] Comment on above: Order Comment: Speci men Type: BLOOD SPECIMENOrdering Facility: [facility] Address: [address] [place] [address] Performed By: #### 2 777-1, 15642-2, 3033-6, 22338-9 ####[facility] LABCLIA [id number] [address] [address] [place] Chloride [Moles/Vol] 101 mmol/L Normal 98-107 [facility] Comment on above: Order Comment: Speci men Type: BLOOD SPECIMENOrdering Facility: [facility] Address: [address] [place] [address] Performed By: #### 2 777-1, 81159-5, 303-6, 73067-7 ####[facility] LABCLIA [id number] [address] [address] [place] CO2 [Moles/Vol] 25 mmol/L Normal 22-30 [facility] Comment on above: Order Comment: Speci men Type: BLOOD SPECIMENOrdering Facility: [facility] Address: [address] [place] [address] Performed By: #### 2 777-1, 28595-2, 3033-6, 22012-5 ####[facility] LABCLIA [id number] [address] [address] [place] Creatinine [Mass/Vol] 1.38 mg/dL High 0.73-1.22 [facility] Comment on above: Order Comment: Speci men Type: BLOOD SPECIMENOrdering Facility: [facility] Address: [address] [place] [address] Performed By: #### 2 777-1, 87163-2, 3033-6, 88519-6 ####[facility] LABIA [id number] [address] [address] [place] Creatinine and Glomerular filtration rate.predicted panel (S/P/Bld) 53 mL/min/1.73m??? Low >=60 [facility] Comment on above: Order Comment: Speci men Type: BLOOD SPECIMENOrdering Facility: [facility] Address: [address] [place] [address] Result Comment: Annalisa mated Glomerular Filtration Rate (eGFR) is calculated using the 2020 CKD-EPI creatinine equation. This equation utilizes serum creatinine, sex, and age as parameters. The creatinine assay has traceable calibration to isotope dilution-mass spectrometry. Refer to KDIGO guidelines for clinical interpretation. In patients with unstable renal function, e.g. those with acute kidney injury, the eGFR may not accurately reflect actual GFR. Performed By: #### 2 777-1, , 3033-, ####[facility] LABCLIA [id number] [address] [address] [place] Glucose [Mass/Vol] 92 mg/dL Normal 74-99 [facility] Comment on above: Order Comment: Bobby villalpando Type: BLOOD SPECIMENOrdering Facility: [facility] Address: [address] [place] [address] Result Comment: The [place] [employer] (ADA) provides guidance for cutoff values for fasting glucose and random glucose. The ADA defines fasting as no caloric intake for at least 8 hours. Fasting plasma glucose results between 100 to 125 mg/dL indicate increased risk for diabetes (prediabetes).Fasting plasma glucose results greater than or equal to 126 mg/dL meet the criteria for diagnosis of diabetes. In the absence of unequivocal hyperglycemia, results should be confirmed by repeat testing. In a patient with classic symptoms of hyperglycemia or hyperglycemic crisis, random plasma glucose results greater than or equal to 200 mg/dL meet the criteria for diagnosis of diabetes.Reference: Standards of Medical Care in Diabetes 2016, [place] [employer]. Diabetes Care. 2016.39(Suppl 1). Performed By: #### 2 777-1, , 3034-04, ####[facility] LABCLIA [id number] [address] [address] [place] Potassium [Moles/Vol] 4.7 mmol/L Normal 3.7-5.1 [facility] Comment on above: Order Comment: Bobby villalpando Type: BLOOD SPECIMENOrdering Facility: [facility] Address: [address] [place] [address] Performed By: #### 2 777-1, , 3034-04, ####[facility] LABCLIA [id number] [address] [address] [place] Protein [Mass/Vol] 6.5 g/dL Normal 6.3-8.0 [facility] Comment on above: Order Comment: Speci men Type: BLOOD SPECIMENOrdering Facility: [facility] Address: [address] [place], [place] [address] Performed By: #### 2 777-1, 62308-5, 3034-04, 22702-3 ####[facility] LABIA [id number] [address] [address] [place] Sodium [Moles/Vol] 136 mmol/L Normal 136-144 [facility] Comment on above: Order Comment: Speci men Type: BLOOD SPECIMENOrdering Facility: [facility] Address: [address] [place], [place] [address] Performed By: #### 2 777-1, 08797-9, 6, 53100-8 ####[facility] LABIA [id number] [address] [address] [place] Urea nitrogen [Mass/Vol] 21 mg/dL Normal 9-24 [facility] Comment on above: Order Comment: Speci men Type: BLOOD SPECIMENOrdering Facility: [facility] Address: [address] [place], [place] [address] Performed By: #### 2 777-1, 52030-0, 3034-04, 03770-1 ####[facility] LABIA [id number] [address] [address] [place] HISTORY PHYSICALon HISTORY PHYSICAL Normal [facility] Magnesium SerPl-mCncon 06-11 Magnesium [Mass/Vol] 2.2 mg/dL Normal 1.7-2.3 [facility] Comment on above: Order Comment: Speci men Type: BLOOD SPECIMENOrdering Facility: [facility] Address: [address] [place] [address] Performed By: #### 2 777-1, 14693-4, 3034-6, 92923-5 ####[facility] [id number] [place] [address] [place] NURSING PROGon 06-11-2024 NURSING PROG Normal [facility] PT panel Coag (PPP)on 2023 INR Coag (PPP) [Relative time] 1.0 {INR} Normal 0.9-1.3 [facility] Comment on above: Order Comment: Speci men Type: BLOOD SPECIMENOrdering Facility: [facility] Address: [address] [place] [address] Result Comment: Rizwana min K Antagonist (VKA) Therapeutic Range: INR 2 to 3 (Target INR of 2.5)Note: For patients treated with VKA drugs, such as warfarin, the [place] [employer] 2012 Guideline recommends a therapeutic INR range of 2 to 3 (target INR of 2.5). This recommendation includes high-risk patients with antiphospholipid syndrome with previous arterial or venous thromboembolism, current-generation mechanical or bioprosthetic aortic heart valve replacement.Note: Patients with mechanical aortic valve replacement and additional risk factors for thromboembolic events (atrial fibrillation, previous thromboembolism, LV dysfunction, hypercoagulable conditions) or an older generation mechanical AVR (i.e., ball in-Cage) or any mechanical MVR should have a INR therapeutic range of 2.5 to 3.5 (target INR of 3).Es GH, et al. Chest 2012, 141:7S-47SNishimura RA, et al. [facility] 2017, 70: 252-289 Performed By: #### 3 4528-0, 72899-1 ####[facility] LABIA [id number] [place] [address] [place] PT Coag (PPP) [Time] 10.9 s Normal 9.7-13.0 [facility] Comment on above: Order Comment: Speci men Type: BLOOD SPECIMENOrdering Facility: [facility] Address: [address] [place] [address] Performed By: #### 3 4528-0, 57815-0 ####[facility] LABCLIA [id number] [place] [address] [place] Phosphate SerPl-mCncon 06-11 Phosphate [Mass/Vol] 3.8 mg/dL Normal 2.7-4.8 [facility] Comment on above: Order Comment: Speci men Type: BLOOD SPECIMENOrdering Facility: [facility] Address: [address] [place] [address] Performed By: #### 2 777-1, 42980-8, 3034-6, 11947-6 ####[facility] LABCLIA [id number] [address] [place] Prealb SerPl-mCncon 06-11-20 24 Prealbumin [Mass/Vol] 21 mg/dL Normal 17-36 [facility] Comment on above: Order Comment: Speci men Type: BLOOD SPECIMENOrdering Facility: [facility] Address: [address] [place] [address] Performed By: #### 1 4338-8 ####[facility] LABCLIA [id number] [place] [address] [place] TYPE + SCREENon 06-11-2024 ABO A Normal [facility] Comment on above: Order Comment: Speci men Type: BLOOD SPECIMENOrdering Facility: [facility] Address: [address] [place] [address] Performed By: #### T SCR ####[facility] BLOOD BANKIA [id number] [place] [address] [place] HISTORICAL AB SCR STATUS Negative Normal [facility] Comment on above: Order Comment: Speci men Type: BLOOD SPECIMENOrdering Facility: [facility] Address: [address] [place] [address] Performed By: #### T SCR ####[facility] BLOOD BANKCLIA [id number] [place] [id number] [place] Rh Nom (Bld) Positive Normal [facility] Comment on above: Order Comment: Speci men Type: BLOOD SPECIMENOrdering Facility: [facility] Address: [address] [place] [address] Performed By: #### T SCR ####[facility] BLOOD BANKCLIA [id number] [place] [address] [place] TYPE AND SCREEN EXPIRATION 06/14/2024 23:59 Normal [facility] Comment on above: Order Comment: Speci men Type: BLOOD SPECIMENOrdering Facility: [facility] Address: [address] [place] [address] Performed By: #### T SCR ####[facility] BLOOD BANKCLIA [id number] [place] [address] [place] Transferrin SerPl-mCncon Transferrin [Mass/Vol] 249 mg/dL Normal 200-360 [facility] Comment on above: Order Comment: Speci men Type: BLOOD SPECIMENOrdering Facility: [facility] Address: [address] [place] [address] Performed By: #### 2 777-1, 16716-3, 3034-6, 14953-0 ####[facility] LABCLIA [id number] [place] [address] [place] aPTT PPPon 06-11-2024 aPTT Coag (PPP) [Time] 33.5 s High 23.0-32.4 [facility] Comment on above: Order Comment: Speci men Type: BLOOD SPECIMENOrdering Facility: [facility] Address: [address] [place] [address] Performed By: #### 3 4528-0, 66346-8 ####[facility] LABCLIA [id number] [place] [address] [place] Covid-19 PCR (CVDTB)on SARS-CoV-2 (COVID-19) RNA VENESSA+probe [...] for this test is supported by the [employer] of Health and Human Service's declaration that [...] BNP #### [facility] [address] [place] [address] Dr. Leni Hamlin INFLUENZA A AND B AGon 01-16 [facility] BELOW Normal [facility] Comment on above: Result Comment: Nega tive for Flu A protein angiten. Infection due to Flu A cannot be ruled out. Flu A angiten in the sample may be below the detection limit of the test. Performed By: #### C RP #### [facility] [address] [place] [address] Dr. Leni Hamlin [facility] BEL[facility] Normal [facility] Comment on above: Result Comment: Nega tive for Flu B protein antigen. Infection due to Flu B cannot be ruled out. Flu B antigen in the sample may be below the detection limit of the test. Performed By: #### C RP #### [facility] [address] [place] [address] Dr. Leni Hamlin INFLUENZA A AG Negative Normal NEGATIVE SEE COMMENT [facility] Comment on above: Performed By: #### C RP #### [facility] [address] [place] [address] Dr. Leni Hamlin INFLUENZA B AG Negative Normal NEGATIVE SEE COMMENT [facility] Comment on above: Performed By: #### C RP #### [facility] [address] [place] [address] LSPINE WO CONon 3 CT LSPINE WO CON EXAMINATION: CT LSPI NE WO CON, 12/18/2022 3:26 PM EST HISTORY: [...] 15:56 Normal [facility] CBC AUTO DIFFon 10-03-2022 BASO # 0.1 103/ul Normal 0.0-0.1 [facility] Comment on above: Performed By: #### B MP, BNP #### [facility] [address] [place] [address] Dr. Leni Hamlin Basophils/100 WBC (Bld) 0.5 % Normal 0.2-2.0 [facility] Comment on above: Performed By: #### B MP, BNP #### [facility] [address] [place] [address] Dr. Leni Hamlin EO # 0.3 103/ul Normal 0.0-0.7 [facility] Comment on above: Performed By: #### B MP, BNP #### [facility] [address] [place] [address] Dr. Leni Hamlin Eosinophils/100 WBC (Bld) 2.2 % Normal 0.9-7.0 [facility] Comment on above: Performed By: #### B MP, BNP #### [facility] [address] [place] [address] Dr. Leni Hamlin Erythrocyte distribution width (RBC) [Ratio] 13.3 % Normal 11.0-15.0 [facility] Comment on above: Performed By: #### B MP, BNP #### [facility] [address] [place] [address] Dr. Leni Hamlin Hematocrit (Bld) [Volume fraction] 46.9 % Normal 42.0-54.0 [facility] Comment on above: Performed By: #### B MP, BNP #### [facility] [address] [place] [address] Dr. Leni Hamlin Hemoglobin (Bld) [Mass/Vol] 15.3 g/dL Normal 14.0-18.0 [facility] Comment on above: Performed By: #### B MP, BNP #### [facility] [address] [place] [address] Dr. Leni Hamlin IG # 0.18 10e3/ul Critically high 0.00-0.03 [facility] Comment on above: Performed By: #### B MP, BNP #### [facility] [address] [place] [address] Dr. Leni Hamlin IG % 1.3 % Critically high 0.0-0.5 [facility] Comment on above: Performed By: #### B MP, BNP #### [facility] [address] [place] [address] [address] Leni Hamlin LYMPH # 1.9 103/ul Normal 1.2-3.8 [facility] Comment on above: Performed By: #### B MP, BNP #### [facility] [address] [place] [address] [address] Leni Hamlin Lymphocytes/100 WBC (Bld) 13.6 % Critically low 20.5-60.0 [facility] Comment on above: Performed By: #### B MP, BNP #### [facility] [address] [place] [address] [address] Leni Hamlin MANUAL DIFF REQ NO Normal [facility] Comment on above: Performed By: #### B MP, BNP #### [facility] [address] [place] [address] Dr. Leni Hamlin MCH (RBC) [Entitic mass] 29.2 pg Normal 25.9-34.0 [facility] Comment on above: Performed By: #### B MP, BNP #### [facility] [address] [place] [address] [address] Leni Hamlin MCHC (RBC) [Mass/Vol] 32.6 g/dL Normal 29.9-35.2 [facility] Comment on above: Performed By: #### B MP, BNP #### [facility] [address] [place] [address] [address] Leni Hamlin MCV (RBC) [Entitic vol] 89.5 fL Normal 80.0-94.0 [facility] Comment on above: Performed By: #### B MP, BNP #### [facility] [address] [place] [address] [address] Leni Hamlin MONO # 0.9 103/ul Critically high 0.3-0.8 [facility] Comment on above: Performed By: #### B MP, BNP #### [facility] [address] [place] [address] [address] Leni Hamlin Monocytes/100 WBC (Bld) 6.6 % Normal 1.7-12.0 [facility] Comment on above: Performed By: #### B MP, BNP #### [facility] [address] [place] [address] [address] Leni Hamlin NEUT # 10.4 103/ul Critically high 1.4-6.5 [facility] Comment on above: Performed By: #### B MP, BNP #### [facility] [address] [place] [address] [address] Leni Hamlin Neutrophils/100 WBC (Bld) 75.8 % Critically high 43.0-75.0 [facility] Comment on above: Performed By: #### B MP, BNP #### [facility] [address] [place] [address] Dr. Leni Hamlin Platelet mean volume (Bld) [Entitic vol] 10.6 fL Normal 9.5-13.5 [facility] Comment on above: Performed By: #### B MP, BNP #### [facility] [address] [place] [id number] Dr. Leni Hamlin PLT 143 103/ul Critically low 150-450 [facility] Comment on above: Performed By: #### B MP, BNP #### [facility] [address] [place] [address] Dr. Leni Hamlin RBC 5.24 106/ul Normal 4.70-6.10 [facility] Comment on above: Performed By: #### B MP, BNP #### [facility] [address] [address] [address] Leni Hamlin WBC 13.7 103/ul Critically high 4.0-11.0 [facility] Comment on above: Performed By: #### B MP, BNP #### [facility] [address] [place] [address] Dr. Leni Hamlin CRPon 10-03-2022 CRP 7.6 mg/dL Critically high <=1.0 [facility] Comment on above: Performed By: #### C MP, CRP #### [facility] [address] [place] [address] Dr. Leni Hamlin PROF 14(COMP METB)on 11-23-2 022 Albumin [Mass/Vol] 2.5 g/dL Critically low 3.4-5.0 [facility] Comment on above: Performed By: #### C MP, CRP #### [facility] [address] [place] [address] Dr. Leni Hamlin Albumin/Globulin [Mass ratio] 0.7 {ratio} Normal [facility] Comment on above: Performed By: #### C MP, CRP #### [facility] [address] [address] [address] Leni Hamlin ALP [Catalytic activity/Vol] 54 U/L Normal 46-116 [facility] Comment on above: Performed By: #### C MP, CRP #### [facility] [address] [place] [address] Dr. Leni Hamlin ALT [Catalytic activity/Vol] 11 U/L Critically low 16-63 [facility] Comment on above: Performed By: #### C MP, CRP #### [facility] [address] [place] [address] Dr. Leni Hamlin Anion gap [Moles/Vol] 8.8 mmol/L Normal [facility] Comment on above: Performed By: #### C MP, CRP #### [facility] [address] [place] [address] Dr. Leni Hamlin AST [Catalytic activity/Vol] 9 U/L Critically low 15-37 [facility] Comment on above: Performed By: #### C MP, CRP #### [facility] [address] [place] [address] Dr. Leni Hamlin Bilirubin [Mass/Vol] 0.3 mg/dL Normal 0.2-1.0 [facility] Comment on above: Performed By: #### C MP, CRP #### [facility] [address] [place] [address] Dr. Leni Hamlin Calcium [Mass/Vol] 8.6 mg/dL Normal 8.5-10.1 [facility] Comment on above: Performed By: #### C MP, CRP #### [facility] [address] [place] [address] Dr. Leni Hamlin Chloride [Moles/Vol] 103 mmol/L Normal 98-107 [facility] Comment on above: Performed By: #### C MP, CRP #### [facility] [address] [address] [address] Leni Hamlin CO2 [Moles/Vol] 29.2 mmol/L Normal 21.0-32.0 [facility] Comment on above: Performed By: #### C MP, CRP #### [facility] [address] [address] [address] Leni Hamlin Creatinine [Mass/Vol] 1.20 mg/dL Normal 0.70-1.30 [facility] Comment on above: Performed By: #### C MP, CRP #### [facility] [address] [address] [address] Leni Hamlin EGFR-AF QATARI >60 Normal >=60 [facility] Comment on above: Performed By: #### C MP, CRP #### [facility] [address] [address] [address] Leni Hamlin EGFR-NON AF QATARI 59 mL/min/1.73m2 Critically low >=60 [facility] Comment on above: Performed By: #### C MP, CRP #### [facility] [address] [place] [address] Dr. Leni Hamlin Globulin (S) [Mass/Vol] 3.4 g/dL Normal [facility] Comment on above: Performed By: #### C MP, CRP #### [facility] [address] [address] [address] Leni Hamlin Glucose [Mass/Vol] 108 mg/dL Critically high 74-106 [facility] Comment on above: Performed By: #### C MP, CRP #### [facility] [address] [address] [address] Leni Hamlin Potassium [Moles/Vol] 4.0 mmol/L Normal 3.5-5.1 [facility] Comment on above: Performed By: #### C MP, CRP #### [facility] [address] [address] [address] Leni Hamlin Protein [Mass/Vol] 5.9 g/dL Critically low 6.4-8.2 [facility] Comment on above: Performed By: #### C MP, CRP #### [facility] [address] [place] [address] Dr. Leni Hamlin Sodium [Moles/Vol] 137 mmol/L Normal 136-145 [facility] Comment on above: Performed By: #### C MP, CRP #### [facility] [address] [place] [address] Dr. Leni Hamlin Urea nitrogen [Mass/Vol] 15.0 mg/dL Normal 7.0-18.0 [facility] Comment on above: Performed By: #### C MP, CRP #### [facility] [address] [place] [address] Dr. Leni Hamlin Urea nitrogen/Creatinine [Mass ratio] 12.5 mg/mg Normal [facility] Comment on above: Performed By: #### C MP, CRP #### [facility] [address] [place] [address] Dr. Leni Hamlin CBC AUTO DIFFon 10-02-2022 BASO # 0.1 103/ul Normal 0.0-0.1 [facility] Comment on above: Performed By: #### C MP, CRP #### [facility] [address] [place] [address] Dr. Leni Hamlin Basophils/100 WBC (Bld) 0.5 % Normal 0.2-2.0 [facility] Comment on above: Performed By: #### C MP, CRP #### [facility] [address] [place] [address] Dr. Leni Hamlin EO # 0.2 103/ul Normal 0.0-0.7 [facility] Comment on above: Performed By: #### C MP, CRP #### [facility] [address] [place] [address] Dr. Leni Hamlin Eosinophils/100 WBC (Bld) 1.6 % Normal 0.9-7.0 [facility] Comment on above: Performed By: #### C MP, CRP #### [facility] [address] [place] [address] Dr. Leni Hamlin Erythrocyte distribution width (RBC) [Ratio] 13.4 % Normal 11.0-15.0 [facility] Comment on above: Performed By: #### C MP, CRP #### [facility] [address] [place] [address] Dr. Leni Hamlin Hematocrit (Bld) [Volume fraction] 46.6 % Normal 42.0-54.0 [facility] Comment on above: Performed By: #### C MP, CRP #### [facility] [address] [place] [address] Dr. Leni Hamlin Hemoglobin (Bld) [Mass/Vol] 15.1 g/dL Normal 14.0-18.0 [facility] Comment on above: Performed By: #### C MP, CRP #### [facility] [address] [place] [address] Dr. Leni Hamlin IG # 0.21 10e3/ul Critically high 0.00-0.03 [facility] Comment on above: Performed By: #### C MP, CRP #### [facility] [address] [place] [address] Dr. Leni Hamlin IG % 1.4 % Critically high 0.0-0.5 [facility] Comment on above: Performed By: #### C MP, CRP #### [facility] [address] [place] [address] Dr. Leni Hamlin LYMPH # 1.9 103/ul Normal 1.2-3.8 [facility] Comment on above: Performed By: #### C MP, CRP #### [facility] [address] [place] [address] Dr. Leni Hamlin Lymphocytes/100 WBC (Bld) 12.4 % Critically low 20.5-60.0 [facility] Comment on above: Performed By: #### C MP, CRP #### [facility] [address] [place] [address] Dr. Leni Hamlin MANUAL DIFF REQ NO Normal [facility] Comment on above: Performed By: #### C MP, CRP #### [facility] [address] [address] [address] Leni Hamlin MCH (RBC) [Entitic mass] 28.9 pg Normal 25.9-34.0 [facility] Comment on above: Performed By: #### C MP, CRP #### [facility] [address] [place] [address] Dr. Leni Hamlin MCHC (RBC) [Mass/Vol] 32.4 g/dL Normal 29.9-35.2 [facility] Comment on above: Performed By: #### C MP, CRP #### [facility] [address] [place] [address] Dr. Leni Hamlin MCV (RBC) [Entitic vol] 89.3 fL Normal 80.0-94.0 [facility] Comment on above: Performed By: #### C MP, CRP #### [facility] [address] [place] [address] Dr. Leni Hamlin MONO # 1.1 103/ul Critically high 0.3-0.8 [facility] Comment on above: Performed By: #### C MP, CRP #### [facility] [address] [place] [address] Dr. Leni Hamlin Monocytes/100 WBC (Bld) 6.9 % Normal 1.7-12.0 [facility] Comment on above: Performed By: #### C MP, CRP #### [facility] [address] [place] [address] Dr. Leni Hamlin NEUT # 11.8 103/ul Critically high 1.4-6.5 [facility] Comment on above: Performed By: #### C MP, CRP #### [facility] [address] [place] [address] Dr. Leni Hamlin Neutrophils/100 WBC (Bld) 77.2 % Critically high 43.0-75.0 [facility] Comment on above: Performed By: #### C MP, CRP #### [facility] [address] [place] [address] Dr. Leni Hamlin Platelet mean volume (Bld) [Entitic vol] 10.5 fL Normal 9.5-13.5 [facility] Comment on above: Performed By: #### C MP, CRP #### [facility] [address] [address] [address] Leni Hamlin PLT 138 103/ul Critically low 150-450 [facility] Comment on above: Performed By: #### C MP, CRP #### [facility] [address] [address] [address] Leni Hamlin RBC 5.22 106/ul Normal 4.70-6.10 [facility] Comment on above: Performed By: #### C MP, CRP #### [facility] [address] [address] [address] Leni Hamlin WBC 15.3 103/ul Critically high 4.0-11.0 [facility] Comment on above: Performed By: #### C MP, CRP #### [facility] [address] [place] [address] Dr. Leni Hamlin CRPon 10-02-2022 CRP 13.7 mg/dL Critically high <=1.0 [facility] Comment on above: Performed By: #### C VDAGS #### [facility] [address] [place] [address] Dr. Leni Hamlin PROF 14(COMP METB)on 022 Albumin [Mass/Vol] 2.5 g/dL Critically low 3.4-5.[address] [facility] Comment on above: Performed By: #### C VDAGS #### [facility] [address] [place] [address] Dr. Leni Hamlin Albumin/Globulin [Mass ratio] 0.8 {ratio} Normal [facility] Comment on above: Performed By: #### C VDAGS #### [facility] [address] [address] [address] Leni Hamlin ALP [Catalytic activity/Vol] 54 U/L Normal 46-116 [facility] Comment on above: Performed By: #### C VDAGS #### [facility] [address] [place] [address] Dr. Leni Hamlin ALT [Catalytic activity/Vol] 13 U/L Critically low 16-63 [facility] Comment on above: Performed By: #### C VDAGS #### [facility] [address] [address] [address] Leni Hamlin Anion gap [Moles/Vol] 10.6 mmol/L Normal [facility] Comment on above: Performed By: #### C VDAGS #### [facility] [address] [address] [address] Leni Hamlin AST [Catalytic activity/Vol] 9 U/L Critically low 15-37 [facility] Comment on above: Performed By: #### C VDAGS #### [facility] [address] [address] [address] Leni Hamlin Bilirubin [Mass/Vol] 0.3 mg/dL Normal 0.2-1.0 [facility] Comment on above: Performed By: #### C VDAGS #### [facility] [address] [address] [address] Leni Hamlin Calcium [Mass/Vol] 8.5 mg/dL Normal 8.5-10.1 [facility] Comment on above: Performed By: #### C VDAGS #### [facility] [address] [address] [address] Leni Hamlin Chloride [Moles/Vol] 104 mmol/L Normal 98-107 [facility] Comment on above: Performed By: #### C VDAGS #### [facility] [address] [address] [address] Leni Hamlin CO2 [Moles/Vol] 27.5 mmol/L Normal 21.0-32.0 [facility] Comment on above: Performed By: #### C VDAGS #### [facility] [address] [address] [address] Leni Hamlin Creatinine [Mass/Vol] 1.26 mg/dL Normal 0.70-1.30 [facility] Comment on above: Performed By: #### C VDAGS #### [facility] [address] [address] [address] Leni Hamlin EGFR-AF QATARI >60 Normal >=60 [facility] Comment on above: Performed By: #### C VDAGS #### [facility] [address] [address] [address] Leni Hamlin EGFR-NON AF QATARI 56 mL/min/1.73m2 Critically low >=60 [facility] Comment on above: Performed By: #### C VDAGS #### [facility] [address] [address] [address] Leni Hamlin Globulin (S) [Mass/Vol] 3.3 g/dL Normal [facility] Comment on above: Performed By: #### C VDAGS #### [facility] [address] [address] [address] Leni Hamlin Glucose [Mass/Vol] 122 mg/dL Critically high 74-106 [facility] Comment on above: Performed By: #### C VDAGS #### [facility] [address] [address] [address] Leni Hamlin Potassium [Moles/Vol] 4.1 mmol/L Normal 3.5-5.1 [facility] Comment on above: Performed By: #### C VDAGS #### [facility] [address] [address] [address] Leni Hamlin Protein [Mass/Vol] 5.8 g/dL Critically low 6.4-8.2 [facility] Comment on above: Performed By: #### C VDAGS #### [facility] [address] [address] [address] Leni Hamlin Sodium [Moles/Vol] 138 mmol/L Normal 136-145 [facility] Comment on above: Performed By: #### C VDAGS #### [facility] [address] [address] [address] Leni Hamlin Urea nitrogen [Mass/Vol] 20.0 mg/dL Critically high 7.0-18.0 [facility] Comment on above: Performed By: #### C VDAGS #### [facility] [address] [address] [address] Leni Hamlin Urea nitrogen/Creatinine [Mass ratio] 15.9 mg/mg Normal [facility] Comment on above: Performed By: #### C VDAGS #### [facility] [address] [place] [address] Dr. Leni Hamlin CBC AUTO DIFFon 10-01-2022 BASO # 0.1 103/ul Normal 0.0-0.1 [facility] Comment on above: Performed By: #### C MP, CRP #### [facility] [address] [place] [address] Dr. Leni Hamlin Basophils/100 WBC (Bld) 0.3 % Normal 0.2-2.0 [facility] Comment on above: Performed By: #### C MP, CRP #### [facility] [address] [place] [address] Dr. Leni Hamlin EO # 0.2 103/ul Normal 0.0-0.7 [facility] Comment on above: Performed By: #### C MP, CRP #### [facility] [address] [place] [address] Dr. Leni Hamlin Eosinophils/100 WBC (Bld) 0.8 % Critically low 0.9-7.0 [facility] Comment on above: Performed By: #### C MP, CRP #### [facility] [address] [place] [address] Dr. Leni Hamlin Erythrocyte distribution width (RBC) [Ratio] 13.6 % Normal 11.0-15.0 [facility] Comment on above: Performed By: #### C MP, CRP #### [facility] [address] [place] [address] Dr. Leni Hamlin Hematocrit (Bld) [Volume fraction] 49.0 % Normal 42.0-54.0 [facility] Comment on above: Performed By: #### C MP, CRP #### [facility] [address] [place] [address] Dr. Leni Hamlin Hemoglobin (Bld) [Mass/Vol] 16.0 g/dL Normal 14.0-18.0 [facility] Comment on above: Performed By: #### C MP, CRP #### [facility] [address] [place], [place] [id number] Dr. Leni Hamlin IG # 0.24 10e3/ul Critically high 0.00-0.03 [facility] Comment on above: Performed By: #### C MP, CRP #### [facility] [address] [place] [address] Dr. Leni Hamlin IG % 1.2 % Critically high 0.0-0.5 [facility] Comment on above: Performed By: #### C MP, CRP #### [facility] [address] [place] [address] Dr. Leni Hamlin LYMPH # 1.6 103/ul Normal 1.2-3.8 [facility] Comment on above: Performed By: #### C MP, CRP #### [facility] [address] [place] [address] Dr. Leni Hamlin Lymphocytes/100 WBC (Bld) 8.0 % Critically low 20.5-60.0 [facility] Comment on above: Performed By: #### C MP, CRP #### [facility] [address] [place] [address] Dr. Leni Hamlin MANUAL DIFF REQ NO Normal [facility] Comment on above: Performed By: #### C MP, CRP #### [facility] [address] [place] [address] Dr. Leni Hamlin MCH (RBC) [Entitic mass] 29.4 pg Normal 25.9-34.0 [facility] Comment on above: Performed By: #### C MP, CRP #### [facility] [address] [place] [address] Dr. Leni Hamlin MCHC (RBC) [Mass/Vol] 32.7 g/dL Normal 29.9-35.2 [facility] Comment on above: Performed By: #### C MP, CRP #### [facility] [address] [place] [address] Dr. Leni Hamlin MCV (RBC) [Entitic vol] 90.1 fL Normal 80.0-94.0 [facility] Comment on above: Performed By: #### C MP, CRP #### [facility] [address] [address] [address] Leni Hamlin MONO # 1.0 103/ul Critically high 0.3-0.8 [facility] Comment on above: Performed By: #### C MP, CRP #### [facility] [address] [place] [address] Dr. Leni Hamlin Monocytes/100 WBC (Bld) 5.1 % Normal 1.7-12.0 [facility] Comment on above: Performed By: #### C MP, CRP #### [facility] [address] [place] [address] Dr. Leni Hamlin NEUT # 16.8 103/ul Critically high 1.4-6.5 [facility] Comment on above: Performed By: #### C MP, CRP #### [facility] [address] [place] [address] Dr. Leni Hamlin Neutrophils/100 WBC (Bld) 84.6 % Critically high 43.0-75.0 [facility] Comment on above: Performed By: #### C MP, CRP #### [facility] [address] [place] [address] Dr. Leni Hamlin Platelet mean volume (Bld) [Entitic vol] 9.7 fL Normal 9.5-13.5 [facility] Comment on above: Performed By: #### C MP, CRP #### [facility] [address] [place] [address] Dr. Leni Hamlin PLT 138 103/ul Critically low 150-450 [facility] Comment on above: Performed By: #### C MP, CRP #### [facility] [address] [place] [address] Dr. Leni Hamlin RBC 5.44 106/ul Normal 4.70-6.10 [facility] Comment on above: Performed By: #### C MP, CRP #### [facility] [address] [place] [address] Dr. Leni Hamlin WBC 19.8 103/ul Critically high 4.0-11.0 [facility] Comment on above: Performed By: #### C MP, CRP #### [facility] [address] [place] [address] Dr. Leni Hamlin BASO # 0.1 103/ul Normal 0.0-0.1 [facility] Comment on above: Performed By: #### B MP, BNP #### [facility] [address] [place] [address] Dr. Leni Hamlin Basophils/100 WBC (Bld) 0.3 % Normal 0.2-2.0 [facility] Comment on above: Performed By: #### B MP, BNP #### [facility] [address] [place] [address] Dr. Leni Hamlin EO # 0.1 103/ul Normal 0.0-0.7 [facility] Comment on above: Performed By: #### B MP, BNP #### [facility] [address] [place] [address] Dr. Leni Hamlin Eosinophils/100 WBC (Bld) 0.7 % Critically low 0.9-7.0 [facility] Comment on above: Performed By: #### B MP, BNP #### [facility] [address] [place] [address] Dr. Leni Hamlin Erythrocyte distribution width (RBC) [Ratio] 13.6 % Normal 11.0-15.0 [facility] Comment on above: Performed By: #### B MP, BNP #### [facility] [address] [place] [address] Dr. Leni Hamlin Hematocrit (Bld) [Volume fraction] 46.9 % Normal 42.0-54.0 [facility] Comment on above: Performed By: #### B MP, BNP #### [facility] [address] [place] [address] Dr. Leni Hamlin Hemoglobin (Bld) [Mass/Vol] 15.5 g/dL Normal 14.0-18.0 [facility] Comment on above: Performed By: #### B MP, BNP #### [facility] [address] [place] [address] Dr. Leni Hamlin IG # 0.16 10e3/ul Critically high 0.00-0.03 [facility] Comment on above: Performed By: #### B MP, BNP #### [facility] [address] [place] [address] Dr. Leni Hamlin IG % 0.9 % Critically high 0.0-0.5 [facility] Comment on above: Performed By: #### B MP, BNP #### [facility] [address] [address] [address] Leni Hamlin LYMPH # 1.8 103/ul Normal 1.2-3.8 [facility] Comment on above: Performed By: #### B MP, BNP #### [facility] [address] [place] [address] Dr. Leni Hamlin Lymphocytes/100 WBC (Bld) 9.7 % Critically low 20.5-60.0 [facility] Comment on above: Performed By: #### B MP, BNP #### [facility] [address] [place] [address] Dr. Leni Hamlin MANUAL DIFF REQ NO Normal [facility] Comment on above: Performed By: #### B MP, BNP #### [facility] [address] [place] [address] Dr. Leni Hamlin MCH (RBC) [Entitic mass] 29.2 pg Normal 25.9-34.0 [facility] Comment on above: Performed By: #### B MP, BNP #### [facility] [address] [place] [address] Dr. Leni Hamlin MCHC (RBC) [Mass/Vol] 33.0 g/dL Normal 29.9-35.2 [facility] Comment on above: Performed By: #### B MP, BNP #### [facility] [address] [place] [address] Dr. Leni Hamlin MCV (RBC) [Entitic vol] 88.3 fL Normal 80.0-94.0 [facility] Comment on above: Performed By: #### B MP, BNP #### [facility] [address] [place] [address] Dr. Leni Hamlin MONO # 1.4 103/ul Critically high 0.3-0.8 [facility] Comment on above: Performed By: #### B MP, BNP #### [facility] [address] [place] [address] Dr. Leni Hamlin Monocytes/100 WBC (Bld) 7.3 % Normal 1.7-12.0 [facility] Comment on above: Performed By: #### B MP, BNP #### [facility] [address] [place] [address] Dr. Leni Hamlin NEUT # 15.1 103/ul Critically high 1.4-6.5 [facility] Comment on above: Performed By: #### B MP, BNP #### [facility] [address] [place] [address] Dr. Leni Hamlin Neutrophils/100 WBC (Bld) 81.1 % Critically high 43.0-75.0 [facility] Comment on above: Performed By: #### B MP, BNP #### [facility] [facility] [address] [place] [address] Dr. Leni Hamlin Platelet mean volume (Bld) [Entitic vol] 10.0 fL Normal 9.5-13.5 [facility] Comment on above: Performed By: #### B MP, BNP #### [facility] [address] [place] [address] Dr. Leni Hamlin PLT 141 103/ul Critically low 150-450 [facility] Comment on above: Performed By: #### B MP, BNP #### [facility] [address] [place] [address] Dr. Leni Hamlin RBC 5.31 106/ul Normal 4.70-6.10 [facility] Comment on above: Performed By: #### B MP, BNP #### [facility] [address] [place] [address] Dr. Leni Hamlin WBC 18.7 103/ul Critically high 4.0-11.0 [facility] Comment on above: Performed By: #### B MP, BNP #### [facility] [address] [place] [address] Dr. Leni Hamlin CRPon 10-01-2022 CRP 16.0 mg/dL Critically high <=1.0 [facility] Comment on above: Performed By: #### C VDAGS #### [facility] [address] [address] [address] Leni Hamlin PROF 14(COMP METB)on 022 Albumin [Mass/Vol] 2.6 g/dL Critically low 3.4-5.0 [facility] e [facility] Comment on above: Performed By: #### C MP, CRP #### [facility] [address] [address] [address] Leni Hamlin Albumin/Globulin [Mass ratio] 0.8 {ratio} Normal [facility] Comment on above: Performed By: #### C MP, CRP #### [facility] [address] [place] [address] Dr. Leni Hamlin ALP [Catalytic activity/Vol] 44 U/L Critically low 46-116 [facility] Comment on above: Performed By: #### C MP, CRP #### [facility] [address] [place] [address] Dr. Leni Hamlin ALT [Catalytic activity/Vol] 12 U/L Critically low 16-63 [facility] Comment on above: Performed By: #### C MP, CRP #### [facility] [address] [place] [address] Dr. Leni Hamlin Anion gap [Moles/Vol] 8.7 mmol/L Normal [facility] Comment on above: Performed By: #### C MP, CRP #### [facility] [address] [address] [address] Leni Hamlin AST [Catalytic activity/Vol] 10 U/L Critically low 15-37 [facility] Comment on above: Performed By: #### C MP, CRP #### [facility] [address] [address] [address] Leni Hamlin Bilirubin [Mass/Vol] 0.8 mg/dL Normal 0.2-1.0 [facility] Comment on above: Performed By: #### C MP, CRP #### [facility] [address] [place] [address] Dr. Leni Hamlin Calcium [Mass/Vol] 8.3 mg/dL Critically low 8.5-10.1 [facility] Comment on above: Performed By: #### C MP, CRP #### [facility] [address] [address] [address] Leni Hamlin Chloride [Moles/Vol] 103 mmol/L Normal 98-107 [facility] Comment on above: Performed By: #### C MP, CRP #### [facility] [address] [address] [address] Leni Hamlin CO2 [Moles/Vol] 28.2 mmol/L Normal 21.0-32.0 [facility] Comment on above: Performed By: #### C MP, CRP #### [facility] [address] [place] [address] Dr. Leni Hamlin Creatinine [Mass/Vol] 1.24 mg/dL Normal 0.70-1.30 [facility] Comment on above: Performed By: #### C MP, CRP #### [facility] [address] [place] [address] Dr. Leni Hamlin EGFR-AF QATARI >60 Normal >=60 [facility] Comment on above: Performed By: #### C MP, CRP #### [facility] [address] [place] [address] Dr. Leni Hamlin EGFR-NON AF QATARI 57 mL/min/1.73m2 Critically low >=60 [facility] Comment on above: Performed By: #### C MP, CRP #### [facility] [address] [place] [address] Dr. Leni Hamlin Globulin (S) [Mass/Vol] 3.2 g/dL Normal [facility] Comment on above: Performed By: #### C MP, CRP #### [facility] [address] [address] [address] Leni Hamlin Glucose [Mass/Vol] 111 mg/dL Critically high 74-106 [facility] Comment on above: Performed By: #### C MP, CRP #### [facility] [address] [place] [address] Dr. Leni Hamlin Potassium [Moles/Vol] 3.9 mmol/L Normal 3.5-5.1 [facility] Comment on above: Performed By: #### C MP, CRP #### [facility] [address] [place] [address] Dr. Leni Hamlin Protein [Mass/Vol] 5.8 g/dL Critically low 6.4-8.2 [facility] Comment on above: Performed By: #### C MP, CRP #### [facility] [address] [place] [address] Dr. Leni Hamlin Sodium [Moles/Vol] 136 mmol/L Normal 136-145 [facility] Comment on above: Performed By: #### C MP, CRP #### [facility] [address] [place] [address] Dr. Leni Hamlin Urea nitrogen [Mass/Vol] 17.0 mg/dL Normal 7.0-18.0 [facility] Comment on above: Performed By: #### C MP, CRP #### [facility] [address] [place] [address] Dr. Leni Hamlin Urea nitrogen/Creatinine [Mass ratio] 13.7 mg/mg Normal [facility] Comment on above: Performed By: #### C MP, CRP #### [facility] [address] [place] [address] Dr. Leni Hamlin C. DIFF PCRon 09-30-2022 C. DIFFICILE PCR Positive Critically abnormal NEGATIVE [facility] Comment on above: Performed By: #### C VDAGS #### [facility] [address] [place] [address] Dr. Leni Hamlin CBC AUTO DIFFon 09-30-2022 BASO # 0.0 103/ul Normal 0.0-0.1 [facility] Comment on above: Performed By: #### C BC #### [facility] [address] [place] [address] Dr. Leni Hamlin Basophils/100 WBC (Bld) 0.3 % Normal 0.2-2.0 [facility] Comment on above: Performed By: #### C BC #### [facility] [address] [place] [address] Dr. Leni Hamlin EO # 0.1 103/ul Normal 0.0-0.7 [facility] Comment on above: Performed By: #### C BC #### [facility] [address] [place] [address] Dr. Leni Hamlin Eosinophils/100 WBC (Bld) 0.8 % Critically low 0.9-7.0 [facility] Comment on above: Performed By: #### C BC #### [facility] [address] [place] [address] Dr. Leni Hamlin Erythrocyte distribution width (RBC) [Ratio] 13.4 % Normal 11.0-15.0 [facility] Comment on above: Performed By: #### C BC #### [facility] [address] [place] [address] Dr. Leni Hamlin Hematocrit (Bld) [Volume fraction] 50.4 % Normal 42.0-54.0 [facility] Comment on above: Performed By: #### C BC #### [facility] [address] [place] [address] Dr. Leni Hamlin Hemoglobin (Bld) [Mass/Vol] 16.2 g/dL Normal 14.0-18.0 [facility] Comment on above: Performed By: #### C BC #### [facility] [address] [place] [address] Dr. Leni Hamlin IG # 0.13 10e3/ul Critically high 0.00-0.03 [facility] Comment on above: Performed By: #### C BC #### [facility] [address] [place] [address] Dr. Leni Hamlin IG % 0.9 % Critically high 0.0-0.5 [facility] Comment on above: Performed By: #### C BC #### [facility] [address] [place] [address] Dr. Leni Hamlin LYMPH # 1.7 103/ul Normal 1.2-3.8 [facility] Comment on above: Performed By: #### C BC #### [facility] [address] [place] [address] Dr. Leni Hamlin Lymphocytes/100 WBC (Bld) 11.1 % Critically low 20.5-60.0 [facility] Comment on above: Performed By: #### C BC #### [facility] [address] [place] [address] Dr. Leni Hamlin MANUAL DIFF REQ NO Normal [facility] Comment on above: Performed By: #### C BC #### [facility] [address] [place] [address] Dr. Leni Hamlin MCH (RBC) [Entitic mass] 28.8 pg Normal 25.9-34.0 [facility] Comment on above: Performed By: #### C BC #### [facility] [address] [place] [address] Dr. Leni Hamlin MCHC (RBC) [Mass/Vol] 32.1 g/dL Normal 29.9-35.2 [facility] Comment on above: Performed By: #### C BC #### [facility] [address] [place] [address] Dr. Leni Hamlin MCV (RBC) [Entitic vol] 89.7 fL Normal 80.0-94.0 [facility] Comment on above: Performed By: #### C BC #### [facility] [address] [place] [address] Dr. Leni Hamlin MONO # 1.5 103/ul Critically high 0.3-0.8 [facility] Comment on above: Performed By: #### C BC #### [facility] [address] [place] [address] Dr. Leni Hamlin Monocytes/100 WBC (Bld) 9.8 % Normal 1.7-12.0 [facility] Comment on above: Performed By: #### C BC #### [facility] [address] [place] [address] Dr. Leni Hamlin NEUT # 11.7 103/ul Critically high 1.4-6.5 [facility] Comment on above: Performed By: #### C BC #### [facility] [address] [place] [address] Dr. Leni Hamlin Neutrophils/100 WBC (Bld) 77.1 % Critically high 43.0-75.0 [facility] Comment on above: Performed By: #### C BC #### [facility] [address] [address] [address] Leni Hamlin Platelet mean volume (Bld) [Entitic vol] 9.9 fL Normal 9.5-13.5 [facility] Comment on above: Performed By: #### C BC #### [facility] [address] [address] [address] Leni Hamlin PLT 156 103/ul Normal 150-450 [facility] Comment on above: Performed By: #### C BC #### [facility] [address] [place] [address] Dr. Leni Hamlin RBC 5.62 106/ul Normal 4.70-6.10 [facility] Comment on above: Performed By: #### C BC #### [facility] [address] [place] [address] Dr. Leni Hamlin WBC 15.2 103/ul Critically high 4.0-11.0 [facility] Comment on above: Performed By: #### C BC #### [facility] [address] [place] [address] Dr. Leni Hamlin CRPon 09-30-2022 CRP 7.6 mg/dL Critically high <=1.0 [facility] Comment on above: Performed By: #### C RP #### [facility] [address] [place] [address] Dr. Leni Hamlin PROF 14(COMP METB)on 022 Albumin [Mass/Vol] 2.8 g/dL Critically low 3.4-5.0 e [facility] Comment on above: Performed By: #### C RP #### [facility] [address] [place] [address] Dr. Leni Hamlin Albumin/Globulin [Mass ratio] 0.9 {ratio} Normal [facility] Comment on above: Performed By: #### C RP #### [facility] [address] [address] [address] Leni Hamlin ALP [Catalytic activity/Vol] 45 U/L Critically low 46-116 [facility] Comment on above: Performed By: #### C RP #### [facility] [address] [address] [address] Leni Hamlin ALT [Catalytic activity/Vol] 17 U/L Normal 16-63 [facility] Comment on above: Performed By: #### C RP #### [facility] [address] [address] [address] Leni Hamlin Anion gap [Moles/Vol] 8.4 mmol/L Normal [facility] Comment on above: Performed By: #### C RP #### [facility] [address] [address] [address] Leni Hamlin AST [Catalytic activity/Vol] 9 U/L Critically low 15-37 [facility] Comment on above: Performed By: #### C RP #### [facility] [address] [place] [address] Dr. Leni Hamlin Bilirubin [Mass/Vol] 0.6 mg/dL Normal 0.2-1.0 [facility] Comment on above: Performed By: #### C RP #### [facility] [address] [place] [address] Dr. Leni Hamlin Calcium [Mass/Vol] 8.6 mg/dL Normal 8.5-10.1 [facility] Comment on above: Performed By: #### C RP #### [facility] [address] [place] [address] Dr. Leni Hamlin Chloride [Moles/Vol] 104 mmol/L Normal 98-107 [facility] Comment on above: Performed By: #### C RP #### [facility] [address] [address] [address] Leni Hamlin CO2 [Moles/Vol] 29.6 mmol/L Normal 21.0-32.0 [facility] Comment on above: Performed By: #### C RP #### [facility] [address] [place] [address] Dr. Leni Hamlin Creatinine [Mass/Vol] 1.23 mg/dL Normal 0.70-1.30 [facility] Comment on above: Performed By: #### C RP #### [facility] [address] [address] [address] Leni Hamlin EGFR-AF QATARI >60 Normal >=60 [facility] Comment on above: Performed By: #### C RP #### [facility] [address] [address] [address] Leni Hamlin EGFR-NON AF QATARI 58 mL/min/1.73m2 Critically low >=60 [facility] Comment on above: Performed By: #### C RP #### [facility] [address] [address] [address] Leni Hamlin Globulin (S) [Mass/Vol] 3.0 g/dL Normal [facility] Comment on above: Performed By: #### C RP #### [facility] [address] [address] [address] Leni Hamlin Glucose [Mass/Vol] 113 mg/dL Critically high 74-106 [facility] Comment on above: Performed By: #### C RP #### [facility] [address] [address] [address] Leni Hamlin Potassium [Moles/Vol] 4.0 mmol/L Normal 3.5-5.1 [facility] Comment on above: Performed By: #### C RP #### [facility] [address] [address] [address] Leni Hamlin Protein [Mass/Vol] 5.8 g/dL Critically low 6.4-8.[address] [facility] Comment on above: Performed By: #### C RP #### [facility] [address] [address] [address] Leni Hamlin Sodium [Moles/Vol] 138 mmol/L Normal 136-145 [facility] Comment on above: Performed By: #### C RP #### [facility] [address] [address] [address] Leni Hamlin Urea nitrogen [Mass/Vol] 17.0 mg/dL Normal 7.0-18.0 [facility] Comment on above: Performed By: #### C RP #### [facility] [address] [place] [address] Dr. Leni Hamlin Urea nitrogen/Creatinine [Mass ratio] 13.8 mg/mg Normal [facility] Comment on above: Performed By: #### C RP #### [facility] [address] [place] [address] Dr. Leni Hamlin CBC AUTO DIFFon 09-29-2022 BASO # 0.1 103/ul Normal 0.0-0.1 [facility] Comment on above: Performed By: #### C VDAGS #### [facility] [address] [place] [address] Dr. Leni Hamlin Basophils/100 WBC (Bld) 0.4 % Normal 0.2-2.0 [facility] Comment on above: Performed By: #### C VDAGS #### [facility] [address] [place] [address] Dr. Leni Hamlin EO # 0.1 103/ul Normal 0.0-0.7 [facility] Comment on above: Performed By: #### C VDAGS #### [facility] [address] [place] [address] Dr. Leni Hamlin Eosinophils/100 WBC (Bld) 0.9 % Normal 0.9-7.0 [facility] Comment on above: Performed By: #### C VDAGS #### [facility] [address] [place] [address] Dr. Leni Hamlin Erythrocyte distribution width (RBC) [Ratio] 13.2 % Normal 11.0-15.0 [facility] Comment on above: Performed By: #### C VDAGS #### [facility] [address] [place] [address] Dr. Leni Hamlin Hematocrit (Bld) [Volume fraction] 53.1 % Normal 42.0-54.0 [facility] Comment on above: Performed By: #### C VDAGS #### [facility] [address] [place] [address] Dr. Leni Hamlin Hemoglobin (Bld) [Mass/Vol] 17.3 g/dL Normal 14.0-18.0 [facility] Comment on above: Performed By: #### C VDAGS #### [facility] [address] [address] [address] Leni Hamlin IG # 0.30 10e3/ul Critically high 0.00-0.03 [facility] Comment on above: Performed By: #### C VDAGS #### [facility] [address] [address] [address] Leni Hamlin IG % 2.2 % Critically high 0.0-0.5 [facility] Comment on above: Performed By: #### C VDAGS #### [facility] [address] [address] [address] Leni Hamlin LYMPH # 1.5 103/ul Normal 1.2-3.8 [facility] Comment on above: Performed By: #### C VDAGS #### [facility] [address] [place] [address] Dr. Leni Hamlin Lymphocytes/100 WBC (Bld) 10.5 % Critically low 20.5-60.0 [facility] Comment on above: Performed By: #### C VDAGS #### [facility] [address] [place] [address] Dr. Leni Hamlin MANUAL DIFF REQ NO Normal [facility] Comment on above: Performed By: #### C VDAGS #### [facility] [address] [place] [address] Dr. Leni Hamlin MCH (RBC) [Entitic mass] 29.0 pg Normal 25.9-34.0 [facility] Comment on above: Performed By: #### C VDAGS #### [facility] [address] [place] [address] Dr. Leni Hamlin MCHC (RBC) [Mass/Vol] 32.6 g/dL Normal 29.9-35.2 [facility] Comment on above: Performed By: #### C VDAGS #### [facility] [address] [place] [address] Dr. Leni Hamlin MCV (RBC) [Entitic vol] 88.9 fL Normal 80.0-94.0 [facility] Comment on above: Performed By: #### C VDAGS #### [facility] [address] [address] [address] Leni Hamlin MONO # 0.8 103/ul Normal 0.3-0.8 [facility] Comment on above: Performed By: #### C VDAGS #### [facility] [address] [place] [address] Dr. Leni Hamlin Monocytes/100 WBC (Bld) 6.0 % Normal 1.7-12.0 [facility] Comment on above: Performed By: #### C VDAGS #### [facility] [address] [place] [address] Dr. Leni Hamlin NEUT # 11.2 103/ul Critically high 1.4-6.5 [facility] Comment on above: Performed By: #### C VDAGS #### [facility] [address] [place] [address] Dr. Leni Hamlin Neutrophils/100 WBC (Bld) 80.0 % Critically high 43.0-75.0 [facility] Comment on above: Performed By: #### C VDAGS #### [facility] [address] [place] [address] Dr. Leni Hamlin Platelet mean volume (Bld) [Entitic vol] 9.6 fL Normal 9.5-13.5 [facility] Comment on above: Performed By: #### C VDAGS #### [facility] [address] [place] [address] Dr. Leni Hamlin PLT 186 103/ul Normal 150-450 [facility] Comment on above: Performed By: #### C VDAGS #### [facility] [address] [place] [address] Dr. Leni Hamlin RBC 5.97 106/ul Normal 4.70-6.10 [facility] Comment on above: Performed By: #### C VDAGS #### [facility] [address] [place] [address] Dr. Leni Hamlin WBC 13.9 103/ul Critically high 4.0-11.0 [facility] Comment on above: Performed By: #### C VDAGS #### [facility] [address] [address] [address] ABD/PELV W CONon [...] [facility]11 SARS-CoV-2 (COVID-19) RNA VENESSA+probe Ql [...] for this test is supported by the [employer] of Health and Human Service's declaration that [...] BNP #### [facility] [address] [place] [address] Dr. Leni Hamlin GI PANEL (PCR)on 09-29-2022 Adenovirus F 40/41 Not detected Normal NOT DETECTED [facility] Comment on above: Performed By: #### C RP #### [facility] [address] [place] [address] Dr. Leni Hamlin Astrovirus Not detected Normal NOT DETECTED [facility] Comment on above: Performed By: #### C RP #### [facility] [address] [place] [address] Dr. Leni Duvall. Diff toxin A/B Not detected Normal NOT DETECTED [facility] Comment on above: Performed By: #### C RP #### [facility] [address] [place] [address] Dr. Leni Hamlin Campylobacter Not detected Normal NOT DETECTED [facility] Comment on above: Performed By: #### C RP #### [facility] [address] [place] [address] Dr. Leni Hamlin Cryptosporidium Not detected Normal NOT DETECTED [facility] Comment on above: Performed By: #### C RP #### [facility] [address] [place] [address] Dr. Leni Hamlin Cyclos. Cayetanensis Not detected Normal NOT DETECTED [facility] Comment on above: Performed By: #### C RP #### [facility] [address] [place] [address] Dr. Leni Hamlin E. Coli O157 Not Applicable Normal Not Applicable [facility] Comment on above: Performed By: #### C RP #### [facility] [address] [place] [address] Dr. Leni Hamlin E. histolytica Not detected Normal NOT DETECTED [facility] Comment on above: Performed By: #### C RP #### [facility] [address] [place] [address] Dr. Leni Hamlin EAEC Not detected Normal NOT DETECTED [facility] Comment on above: Performed By: #### C RP #### [facility] [address] [place] [address] Dr. Leni Hamlin EIEC Not detected Normal NOT DETECTED [facility] Comment on above: Performed By: #### C RP #### [facility] [address] [place] [address] Dr. Leni Hamlin EPEC Not detected Normal NOT DETECTED [facility] Comment on above: Performed By: #### C RP #### [facility] [address] [place] [address] Dr. Leni Hamlin ETEC Not detected Normal NOT DETECTED [facility] Comment on above: Performed By: #### C RP #### [facility] [address] [place] [address] Dr. Leni Hamlin G. Lamblia Not detected Normal NOT DETECTED [facility] Comment on above: Performed By: #### C RP #### [facility] [address] [place] [address] Dr. Leni TEJEDA CONTROLS PASSED Normal [facility] Comment on above: Performed By: #### C RP #### [facility] [address] [place] [address] Dr. Leni KRISHNAMURTHY HEADER GI PANEL BACTERIA Normal [facility] Comment on above: Performed By: #### C RP #### [facility] [address] [place] [address] Dr. Leni KAMARA ECOLI GI PANEL DIARRHEAGEN IC E.COLI / SHIGELLA Normal [facility] Comment on above: Performed By: #### C RP #### [facility] [address] [place] [address] Dr. Leni KAMARA INFO SEE BELOW [facility] Comment on above: Result Comment: EAEC - Enteroaggregative E. Coli EPEC- Enteropathogenic E. Coli ETEC- Enterotoxigenic E. Coli lt/st STEC- Shigella-like toxin-producing E. Coli stx1/stx2 EIEC- Shigella/Enteroinvasive E. Coli Performed By: #### C RP #### [facility] [address] [place] [address] Dr. Leni KAMARA PARASITES GI PANEL PARASITES Normal [facility] Comment on above: Performed By: #### C RP #### [facility] [address] [place] [address] Dr. Leni KAMARA VIRUS GI PANEL VIRUSES Normal [facility] Comment on above: Performed By: #### C RP #### [facility] [address] [place] [address] Dr. Leni Hamlin Norovirus GI/GII Not detected Normal NOT DETECTED [facility] Comment on above: Performed By: #### C RP #### [facility] [address] [place] [address] Dr. Leni Hamlin P. Shigelloides Not detected Normal NOT DETECTED [facility] Comment on above: Performed By: #### C RP #### [facility] [address] [place] [address] Dr. Leni Hamlin Rotavirus A Not detected Normal NOT DETECTED [facility] Comment on above: Performed By: #### C RP #### [facility] [address] [place] [address] Dr. Leni Hamlin Salmonella Not detected Normal NOT DETECTED [facility] Comment on above: Performed By: #### C RP #### [facility] [address] [place] [address] Dr. Leni Hamlin Sapovirus Not detected Normal NOT DETECTED [facility] Comment on above: Performed By: #### C RP #### [facility] [address] [place] [address] Dr. Leni Hamlin STEC Not detected Normal NOT DETECTED [facility] Comment on above: Performed By: #### C RP #### [facility] [address] [place] [address] Dr. Leni Hamlin Vibrio Not detected Normal NOT DETECTED [facility] Comment on above: Performed By: #### C RP #### [facility] [address] [place] [address] Dr. Leni Hamlin Vibrio Cholera Not detected Normal NOT DETECTED [facility] Comment on above: Performed By: #### C RP #### [facility] [address] [place] [address] Dr. Leni Hamlin Y. Enterocolitica Not detected Normal NOT DETECTED [facility] Comment on above: Performed By: #### C RP #### [facility] [address] [place] [address] Dr. Leni Hamlin PROF CHEM 8 (BAS METB)on Anion gap [Moles/Vol] 5.8 mmol/L Normal [facility] Comment on above: Performed By: #### C VDAGS #### [facility] [address] [place] [address] Dr. Leni Hamlin Calcium [Mass/Vol] 9.0 mg/dL Normal 8.5-10.1 [facility] Comment on above: Performed By: #### C VDAGS #### [facility] [address] [place] [address] Dr. Leni Hamlin Chloride [Moles/Vol] 103 mmol/L Normal 98-107 [facility] Comment on above: Performed By: #### C VDAGS #### [facility] [address] [place] [address] Dr. Leni Hamlin CO2 [Moles/Vol] 31.7 mmol/L Normal 21.0-32.0 [facility] Comment on above: Performed By: #### C VDAGS #### [facility] [address] [place] [address] Dr. Leni Hamlin Creatinine [Mass/Vol] 1.28 mg/dL Normal 0.70-1.30 [facility] Comment on above: Performed By: #### C VDAGS #### [facility] [address] [place] [address] Dr. Leni Hamlin EGFR-AF QATARI >60 Normal >=60 [facility] Comment on above: Performed By: #### C VDAGS #### [facility] [address] [place] [address] Dr. Leni Hamlin EGFR-NON AF QATARI 55 mL/min/1.73m2 Critically low >=60 [facility] Comment on above: Performed By: #### C VDAGS #### [facility] [address] [place] [address] Dr. Leni Hamlin Glucose [Mass/Vol] 130 mg/dL Critically high 74-106 [facility] Comment on above: Performed By: #### C VDAGS #### [facility] [address] [place] [address] Dr. Leni Hamlin Potassium [Moles/Vol] 4.5 mmol/L Normal 3.5-5.1 [facility] Comment on above: Performed By: #### C VDAGS #### [facility] [address] [place] [address] Dr. Leni Hamlin Sodium [Moles/Vol] 136 mmol/L Normal 136-145 [facility] Comment on above: Performed By: #### C VDAGS #### [facility] [address] [place] [address] Dr. Leni Hamlin Urea nitrogen [Mass/Vol] 23.0 mg/dL Critically high 7.0-18.0 [facility] Comment on above: Performed By: #### C VDAGS #### [facility] [address] [place] [address] Dr. Leni Hamlin Urea nitrogen/Creatinine [Mass ratio] 18.0 mg/mg Normal [facility] Comment on above: Performed By: #### C VDAGS #### [facility] [address] [place] [address] Dr. Leni Hamlin Covid-19 PCR ([facility])on 08-13 SARS-CoV-2 (COVID-19) RNA VENESSA+probe Ql [...] for this test is supported by the [employer] of Health and Human Service's declaration that [...] #### [facility] [address] [address] [address] Leni Hamlin Covid-19 PCR ([facility])on 05-11 [...] for this test is supported by the [place] of Health and Human Service's (HHS's) declaration [...] RP #### [facility] [address] [place] [address] Dr. Leni Hamlin Covid-19 PCR ([facility])on 04-11 [...] for this test is supported by the [place] of Health and Human Service's (HHS's) declaration [...] #### [facility] [address] [address] [address] Leni Hamlin SYMPTOMATIC COVID-19 ANTIGEN on 04-23-2022 EUA Statement SEE BELOW Normal [facility] Comment on above: Result Comment: This [...] #### [facility] [address] [place], [place] [address] Dr. Leni Hamlin SARS-CoV-2 (COVID-19) RNA VENESSA+probe Ql (Unsp spec) Negative Normal NEGATIVE [facility] Comment on above: Performed By: #### C VDAGS #### [facility] [address] [place], [place] [address] Dr. Leni Hamlin Cardiovascular Lab Reporton 03-22-2022 Cardiovascular Lab Report [facility] Patient Name: [facility] A MR #: [id number] Department of Physician: Modesto Singh MD Medicine Service Date: 03/22/2022 Division of Birthdate: 1950 Cardiology Room #: [facility] Cardiovascular Services [address] [place] [address] Cardiovascular Laboratory Report PACEMAKER IMPLANT PROCEDURE NOTE DATE OF PROCEDURE: 03/22/2022 PERFORMING PHYSICIAN: Dr. Modesto Singh CONSENT: Patient LOCATION: EP Lab PROCEDURE PERFORMED: [...] using modified seldinger technique using a 5 [place] micro-puncture needle on two occasions and 0.35 [...] pocket was created for the device. 6 [place] Safesheaths were placed over the wire. An active fixation Biotronik pacing lead was then delivered through the 6Fsheath to the right ventricle. After confirmation of lead position on orthogonal views (RUBALCAVA and WALLISIAN) to confirm septal position, the screw was [...] lead position on orthogonal views (RUBALCAVA and WALLISIAN), the screw was activated. After confirmation of [...] Device info: Biotronik Edora Model# 8DR-T Serial# [id number] RA lead: Model# Biotronik Solia S45 Serial# [id number] Sensin.5mV Threshold: 0.6V@0.5ms Impedance: 507 Ohms RV lead: Model# Biotronik Solia S53 Serial# [id number] Sensin.5mV Threshold: 0.6V@0.4ms Impedance: 663 Ohms POST [...] discharge or sooner for any concerns. Modesto Singh MD Cardiac Electrophysiology El (more content not included)... Normal [facility] SPUTUM CULTUREon 03-17-2022 Epithelial cells LM Ql (Urine sed) Few Normal [facility] Comment on above: Performed By: #### B MP, BNP #### [facility] [address] [place] [address] Dr. Leni Hamlin Gram Stain Evaluation Comment Normal [facility] Comment on above: Result Comment: This specimen is of good quality and is acceptable for routine bacterial culture. Performed By: #### B MP, BNP #### [facility] [address] [place] [address] [address] Leni Hamlin Lower Respiratory Culture Final report Normal [facility] Comment on above: Performed By: #### B MP, BNP #### [facility] [address] [place] [address] Dr. Leni Hamlin Result 1 Comment Normal [facility] Comment on above: Result Comment: Few gram negative rods. Performed By: #### B MP, BNP #### [facility] [address] [place] [address] Dr. Leni Hamlin Result Comment: Rout ine respiratory bola Result 2 Comment Normal [facility] Comment on above: Result Comment: Few gram positive cocci Performed By: #### B MP, BNP #### [facility] [address] [place] [address] Dr. Leni Hamlin Result 3 Comment Normal [facility] Comment on above: Result Comment: Rare gram positive rods Performed By: #### B MP, BNP #### [facility] [address] [place] [address] Dr. Leni Hamlin Result 4 Normal [facility] Comment on above: Performed By: #### B MP, BNP #### [facility] [address] [place] [address] Dr. Leni Hamlin White Blood Cells Few Normal [facility] Comment on above: Performed By: #### B MP, BNP #### [facility] [address] [place] [address] Dr. Leni Hamlin BNPon 03-15-2022 Natriuretic peptide B (Bld) [Mass/Vol] 429.0 pg/mL Normal <=900.0 [facility] Comment on above: Performed By: #### C MP, CRP #### [facility] [address] [place] [address] Dr. Leni Hamlin CBC AUTO DIFFon 03-15-2022 BASO # 0.0 103/ul Normal 0.0-0.1 [facility] Comment on above: Performed By: #### C VDAGS #### [facility] [address] [place] [address] Dr. Leni Hamlin Basophils/100 WBC (Bld) 0.2 % Normal 0.2-2.0 [facility] Comment on above: Performed By: #### C VDAGS #### [facility] [address] [place] [address] Dr. Leni Hamlin EO # 0.0 103/ul Normal 0.0-0.7 [facility] Comment on above: Performed By: #### C VDAGS #### [facility] [address] [place] [address] Dr. Leni Hamlin Eosinophils/100 WBC (Bld) 0.0 % Critically low 0.9-7.0 [facility] Comment on above: Performed By: #### C VDAGS #### [facility] [address] [place] [address] Dr. Leni Hamlin Erythrocyte distribution width (RBC) [Ratio] 13.6 % Normal 11.0-15.0 [facility] Comment on above: Performed By: #### C VDAGS #### [facility] [address] [place] [address] Dr. Leni Hamlin Hematocrit (Bld) [Volume fraction] 44.5 % Normal 42.0-54.0 [facility] Comment on above: Performed By: #### C VDAGS #### [facility] [address] [place] [address] Dr. Leni Hamlin Hemoglobin (Bld) [Mass/Vol] 13.8 g/dL Critically low 14.0-18.0 [facility] Comment on above: Performed By: #### C VDAGS #### [facility] [address] [place] [address] Dr. Leni Hamlin IG # 0.35 10e3/ul Critically high 0.00-0.03 [facility] Comment on above: Performed By: #### C VDAGS #### [facility] [address] [place] [address] Dr. Leni Hamlin IG % 2.4 % Critically high 0.0-0.5 [facility] Comment on above: Performed By: #### C VDAGS #### [facility] [address] [place] [address] Dr. Leni Hamlin LYMPH # 0.6 103/ul Critically low 1.2-3.8 [facility] Comment on above: Performed By: #### C VDAGS #### [facility] [address] [place] [address] Dr. Leni Hamlin Lymphocytes/100 WBC (Bld) 4.1 % Critically low 20.5-60.0 [facility] Comment on above: Performed By: #### C VDAGS #### [facility] [address] [place] [address] Dr. Leni Hamlin MANUAL DIFF REQ NO Normal [facility] Comment on above: Performed By: #### C VDAGS #### [facility] [address] [place] [address] Dr. Leni Hamlin MCH (RBC) [Entitic mass] 29.4 pg Normal 25.9-34.0 [facility] Comment on above: Performed By: #### C VDAGS #### [facility] [address] [place] [address] Dr. Leni Hamlin MCHC (RBC) [Mass/Vol] 31.0 g/dL Normal 29.9-35.2 [facility] Comment on above: Performed By: #### C VDAGS #### [facility] [address] [place] [address] Dr. Leni Hamlin MCV (RBC) [Entitic vol] 94.7 fL Critically high 80.0-94.0 [facility] Comment on above: Performed By: #### C VDAGS #### [facility] [address] [place] [address] [address] Leni Hamlin MONO # 0.7 103/ul Normal 0.3-0.8 [facility] Comment on above: Performed By: #### C VDAGS #### [facility] [address] [place] [address] Dr. Leni Hamlin Monocytes/100 WBC (Bld) 4.7 % Normal 1.7-12.0 [facility] Comment on above: Performed By: #### C VDAGS #### [facility] [address] [place] [address] Dr. Leni Hamlin NEUT # 12.9 103/ul Critically high 1.4-6.5 [facility] Comment on above: Performed By: #### C VDAGS #### [facility] [address] [place] [address] Dr. Leni Hamlin Neutrophils/100 WBC (Bld) 88.6 % Critically high 43.0-75.0 [facility] Comment on above: Performed By: #### C VDAGS #### [facility] [address] [place] [address] Dr. Leni Hamlin Platelet mean volume (Bld) [Entitic vol] 10.2 fL Normal 9.5-13.5 [facility] Comment on above: Performed By: #### C VDAGS #### [facility] [address] [place] [address] Dr. Leni Hamlin PLT 176 103/ul Normal 150-450 [facility] Comment on above: Performed By: #### C VDAGS #### [facility] [address] [place] [address] Dr. Leni Hamlin RBC 4.70 106/ul Normal 4.70-6.10 [facility] Comment on above: Performed By: #### C VDAGS #### [facility] [address] [place] [address] Dr. Leni Hamlin WBC 14.6 103/ul Critically high 4.0-11.0 [facility] Comment on above: Performed By: #### C VDAGS #### [facility] [address] [place] [address] [address] Leni Hamlin PROF CHEM 8 (BAS METB)on Anion gap [Moles/Vol] 10.2 mmol/L Normal [facility] Comment on above: Performed By: #### C MP, CRP #### [facility] [address] [place] [address] Dr. Leni Hamlin Calcium [Mass/Vol] 8.0 mg/dL Critically low 8.5-10.1 [facility] Comment on above: Performed By: #### C MP, CRP #### [facility] [address] [place] [address] Dr. Leni Hamlin Chloride [Moles/Vol] 104 mmol/L Normal 98-107 [facility] Comment on above: Performed By: #### C MP, CRP #### [facility] [address] [place] [address] Dr. Leni Hamlin CO2 [Moles/Vol] 28.2 mmol/L Normal 21.0-32.0 [facility] Comment on above: Performed By: #### C MP, CRP #### [facility] [address] [place] [address] Dr. Leni Hamlin Creatinine [Mass/Vol] 1.36 mg/dL Critically high 0.70-1.30 [facility] Comment on above: Performed By: #### C MP, CRP #### [facility] [address] [place] [address] Dr. Leni Hamlin EGFR-AF QATARI >60 Normal >=60 [facility] Comment on above: Performed By: #### C MP, CRP #### [facility] [address] [place] [address] Dr. Leni Hamlin EGFR-NON AF QATARI 51 mL/min/1.73m2 Critically low >=60 [facility] Comment on above: Performed By: #### C MP, CRP #### [facility] [address] [place] [address] Dr. Leni Hamlin Glucose [Mass/Vol] 205 mg/dL Critically high 74-106 [facility] Comment on above: Performed By: #### C MP, CRP #### [facility] [address] [place] [address] Dr. Leni Hamlin Potassium [Moles/Vol] 4.4 mmol/L Normal 3.5-5.1 [facility] Comment on above: Performed By: #### C MP, CRP #### [facility] [address] [place] [address] Dr. Leni Hamlin Sodium [Moles/Vol] 138 mmol/L Normal 136-145 [facility] Comment on above: Performed By: #### C MP, CRP #### [facility] [address] [place] [address] Dr. Leni Hamlin Urea nitrogen [Mass/Vol] 29.0 mg/dL Critically high 7.0-18.0 [facility] Comment on above: Performed By: #### C MP, CRP #### [facility] [address] [place] [address] Dr. Leni Hamlin Urea nitrogen/Creatinine [Mass ratio] 21.3 mg/mg Normal [facility] Comment on above: Performed By: #### C MP, CRP #### [facility] [address] [place] [address] Dr. Leni Hamlin BNPon 03-14-2022 Natriuretic peptide B (Bld) [Mass/Vol] 337.0 pg/mL Normal <=900.0 [facility] Comment on above: Performed By: #### C RP #### [facility] [address] [place] [address] Dr. Leni Hamlin CBC AUTO DIFFon 03-14-2022 BASO # 0.0 103/ul Normal 0.0-0.1 [facility] Comment on above: Performed By: #### C MP, CRP #### [facility] [address] [place] [address] Dr. Leni Hamlin Basophils/100 WBC (Bld) 0.2 % Normal 0.2-2.0 [facility] Comment on above: Performed By: #### C MP, CRP #### [facility] [address] [place] [address] Dr. Leni Hamlin EO # 0.0 103/ul Normal 0.0-0.7 [facility] Comment on above: Performed By: #### C MP, CRP #### [facility] [address] [place] [address] Dr. Leni Hamlin Eosinophils/100 WBC (Bld) 0.0 % Critically low 0.9-7.0 [facility] Comment on above: Performed By: #### C MP, CRP #### [facility] [address] [place] [address] Dr. Leni Hamlin Erythrocyte distribution width (RBC) [Ratio] 13.6 % Normal 11.0-15.0 [facility] Comment on above: Performed By: #### C MP, CRP #### [facility] [address] [place] [address] Dr. Leni Hamlin Hematocrit (Bld) [Volume fraction] 47.8 % Normal 42.0-54.0 [facility] Comment on above: Performed By: #### C MP, CRP #### [facility] [address] [place] [address] Dr. Leni Hamlin Hemoglobin (Bld) [Mass/Vol] 14.6 g/dL Normal 14.0-18.0 [facility] Comment on above: Performed By: #### C MP, CRP #### [facility] [address] [place] [address] Dr. Leni Hamlin IG # 0.22 10e3/ul Critically high 0.00-0.03 [facility] Comment on above: Performed By: #### C MP, CRP #### [facility] [address] [place] [address] Dr. Leni Hamlin IG % 1.3 % Critically high 0.0-0.5 [facility] Comment on above: Performed By: #### C MP, CRP #### [facility] [address] [place] [address] Dr. Leni Hamlin LYMPH # 0.5 103/ul Critically low 1.2-3.8 [facility] Comment on above: Performed By: #### C MP, CRP #### [facility] [address] [place] [address] Dr. Leni Hamlin Lymphocytes/100 WBC (Bld) 2.9 % Critically low 20.5-60.0 [facility] Comment on above: Performed By: #### C MP, CRP #### [facility] [address] [place] [address] Dr. Leni Hamlin MANUAL DIFF REQ NO Normal [facility] Comment on above: Performed By: #### C MP, CRP #### [facility] [address] [place] [address] Dr. Leni Hamlin MCH (RBC) [Entitic mass] 29.4 pg Normal 25.9-34.0 [facility] Comment on above: Performed By: #### C MP, CRP #### [facility] [address] [place] [address] Dr. Leni Hamlin MCHC (RBC) [Mass/Vol] 30.5 g/dL Normal 29.9-35.2 [facility] Comment on above: Performed By: #### C MP, CRP #### [facility] [address] [place] [address] Dr. Leni Hamlin MCV (RBC) [Entitic vol] 96.4 fL Critically high 80.0-94.0 [facility] Comment on above: Performed By: #### C MP, CRP #### [facility] [address] [place] [address] Dr. Leni Hamlin MONO # 1.1 103/ul Critically high 0.3-0.8 [facility] Comment on above: Performed By: #### C MP, CRP #### [facility] [address] [place] [address] Dr. Leni Hamlin Monocytes/100 WBC (Bld) 6.4 % Normal 1.7-12.0 [facility] Comment on above: Performed By: #### C MP, CRP #### [facility] [address] [place] [address] Dr. Leni Hamlin NEUT # 15.2 103/ul Critically high 1.4-6.5 [facility] Comment on above: Performed By: #### C MP, CRP #### [facility] [address] [address] [address] Leni Hamlin Neutrophils/100 WBC (Bld) 89.2 % Critically high 43.0-75.0 [facility] Comment on above: Performed By: #### C MP, CRP #### [facility] [address] [address] [address] Leni Hamlin Platelet mean volume (Bld) [Entitic vol] 10.4 fL Normal 9.5-13.5 [facility] Comment on above: Performed By: #### C MP, CRP #### [facility] [address] [address] [address] Leni Hamlin PLT 167 103/ul Normal 150-450 [facility] Comment on above: Performed By: #### C MP, CRP #### [facility] [address] [place] [address] Dr. Leni Hamlin RBC 4.96 106/ul Normal 4.70-6.10 [facility] Comment on above: Performed By: #### C MP, CRP #### [facility] [address] [address] [address] Leni Hamlin WBC 17.0 103/ul Critically high 4.0-11.0 [facility] Comment on above: Performed By: #### C MP, CRP #### [facility] [address] [address] [address] Leni Hamlin PROF CHEM 8 (BAS METB)on Anion gap [Moles/Vol] 7.0 mmol/L Normal [facility] Comment on above: Performed By: #### C VDAGS #### [facility] [address] [address] [address] Leni Hamlin Calcium [Mass/Vol] 8.3 mg/dL Critically low 8.5-10.[address] [facility] Comment on above: Performed By: #### C VDAGS #### [facility] [address] [address] [address] Leni Hamlin Chloride [Moles/Vol] 102 mmol/L Normal 98-107 [facility] Comment on above: Performed By: #### C VDAGS #### [facility] [address] [place] [address] Dr. Leni Hamlin CO2 [Moles/Vol] 29.6 mmol/L Normal 21.0-32.0 [facility] Comment on above: Performed By: #### C VDAGS #### [facility] [address] [place] [address] Dr. Leni Hamlin Creatinine [Mass/Vol] 1.48 mg/dL Critically high 0.70-1.30 [facility] Comment on above: Performed By: #### C VDAGS #### [facility] [address] [place] [address] Dr. Leni Hamlin EGFR-AF QATARI 56 mL/min/1.73m2 Critically low >=60 [facility] Comment on above: Performed By: #### C VDAGS #### [facility] [address] [place] [address] Dr. Leni Hamlin EGFR-NON AF QATARI 47 mL/min/1.73m2 Critically low >=60 [facility] Comment on above: Performed By: #### C VDAGS #### [facility] [address] [place] [address] Dr. Leni Hamlin Glucose [Mass/Vol] 168 mg/dL Critically high 74-106 [facility] Comment on above: Performed By: #### C VDAGS #### [facility] [address] [place] [address] Dr. Leni Hamlin Potassium [Moles/Vol] 4.6 mmol/L Normal 3.5-5.1 [facility] Comment on above: Performed By: #### C VDAGS #### [facility] [address] [place] [address] Dr. Leni Hamlin Sodium [Moles/Vol] 134 mmol/L Critically low 136-[address] [facility] Comment on above: Performed By: #### C VDAGS #### [facility] [address] [place] [address] Dr. Leni Hamlin Urea nitrogen [Mass/Vol] 29.0 mg/dL Critically high 7.0-18.0 [facility] Comment on above: Performed By: #### C VDAGS #### [facility] [address] [place] [address] Dr. Leni Hamlin Urea nitrogen/Creatinine [Mass ratio] 19.6 mg/mg Normal [facility] Comment on above: Performed By: #### C VDAGS #### [facility] [address] [place] [address] Dr. Leni Hamlin BNPon 03-13-2022 Natriuretic peptide B (Bld) [Mass/Vol] 501.0 pg/mL Normal <=900.0 [facility] Comment on above: Performed By: #### B MP, BNP #### [facility] [address] [place] [address] Dr. Leni Hamlin CBC W MANUAL DIFFon 03-13-20 22 ATYPICAL LYMPH # Normal [facility] Comment on above: Performed By: #### C VDAGS #### [facility] [address] [place] [address] Dr. Leni Hamlin ATYPICAL LYMPH % Normal [facility] Comment on above: Performed By: #### C VDAGS #### [facility] [address] [place] [address] Dr. Leni Hamlin BAND # 2.1 103/ul Critically high 0.0-0.3 [facility] Comment on above: Performed By: #### C VDAGS #### [facility] [address] [place] [address] Dr. Leni Hamlin BAND % 12 % Critically high 0-5 [facility] Comment on above: Performed By: #### C VDAGS #### [facility] [address] [place] [address] Dr. Leni Hamlin BASOM # 0.00 103/ul Normal 0.00-0.10 [facility] Comment on above: Performed By: #### C VDAGS #### [facility] [address] [place] [address] Dr. Leni Hamlin BASOM % 0.0 % Critically low 0.2-2.0 [facility] Comment on above: Performed By: #### C VDAGS #### [facility] [address] [place] [address] Dr. Leni Hamlin BLAST # Normal [facility] Comment on above: Performed By: #### C VDAGS #### [facility] [address] [place] [address] Dr. Leni Hamlin BLAST % Normal [facility] Comment on above: Performed By: #### C VDAGS #### [facility] [address] [place] [address] Dr. Leni Hamlin CORRECTED WBC Normal 4.0-11.0 [facility] Comment on above: Performed By: #### C VDAGS #### [facility] [address] [place] [address] Dr. Leni Hamlin EOS # 0.00 103/ul Normal 0.00-0.70 [facility] Comment on above: Performed By: #### C VDAGS #### [facility] [address] [place] [address] Dr. Leni Hamlin EOS% 0.0 % Critically low 0.9-7.0 [facility] Comment on above: Performed By: #### C VDAGS #### [facility] [address] [place] [address] Dr. Leni Hamlin HCT 51.2 % Normal 42.0-54.0 [facility] Comment on above: Performed By: #### C VDAGS #### [facility] [address] [place] [address] Dr. Leni Hamlin HGB 15.4 g/dl Normal 14.0-18.0 [facility] Comment on above: Performed By: #### C VDAGS #### [facility] [address] [place] [address] Dr. Leni Hamlin LYMPHM # 0.52 103/ul Critically low 1.20-3.80 [facility] Comment on above: Performed By: #### C VDAGS #### [facility] [address] [place] [address] Dr. Leni Hamlin LYMPHM% 3.0 % Critically low 20.5-60.0 [facility] Comment on above: Performed By: #### C VDAGS #### [facility] [address] [place] [address] Dr. Leni Hamlin MCH 29.6 pg Normal 25.9-34.0 [facility] Comment on above: Performed By: #### C VDAGS #### [facility] [address] [place] [address] Dr. Leni Hamlin MCHC 30.1 g/dl Normal 29.9-35.2 [facility] Comment on above: Performed By: #### C VDAGS #### [facility] [address] [place] [address] Dr. Leni Hamlin MCV 98.5 fL Critically high 80.0-94.0 [facility] Comment on above: Performed By: #### C VDAGS #### [facility] [address] [place] [address] Dr. Leni Hamlin METAMYELOCYTE # Normal [facility] Comment on above: Performed By: #### C VDAGS #### [facility] [address] [place] [address] Dr. Leni Hamlin METAMYELOCYTE % Normal [facility] Comment on above: Performed By: #### C VDAGS #### [facility] [address] [place] [address] Dr. Leni Hamlin MONOM# 0.86 103/ul Critically high 0.30-0.80 [facility] Comment on above: Performed By: #### C VDAGS #### [facility] [address] [place] [address] Dr. Leni Hamlin MONOM% 5.0 % Normal 1.7-12.0 [facility] Comment on above: Performed By: #### C VDAGS #### [facility] [address] [place] [address] Dr. Leni Hamlin MPV 10.0 fL Normal 9.5-13.5 [facility] Comment on above: Performed By: #### C VDAGS #### [facility] [address] [address] [address] Leni Hamlin MYELOCYTE # Normal [facility] Comment on above: Performed By: #### C VDAGS #### [facility] [address] [place] [address] Dr. Leni Hamlin MYELOCYTE % Normal [facility] Comment on above: Performed By: #### C VDAGS #### [facility] [address] [place] [address] Dr. Leni Hamlin NRBC Normal [facility] Comment on above: Performed By: #### C VDAGS #### [facility] [address] [address] [address] Leni Hamlin PLT 161 103/ul Normal 150-450 [facility] Comment on above: Performed By: #### C VDAGS #### [facility] [address] [place] [address] Dr. Leni Hamlin RBC 5.20 106/ul Normal 4.70-6.10 [facility] Comment on above: Performed By: #### C VDAGS #### [facility] [address] [place] [address] Dr. Leni Hamlin RDW 13.5 % Normal 11.0-15.0 [facility] Comment on above: Performed By: #### C VDAGS #### [facility] [address] [place] [address] Dr. Leni Hamlin SEG # 13.76 103/ul Critically high 1.40-6.50 [facility] Comment on above: Performed By: #### C VDAGS #### [facility] [address] [place] [address] Dr. Leni Hamlin SEG % 80.0 % Critically high 43.0-75.0 [facility] Comment on above: Performed By: #### C VDAGS #### [facility] [address] [place] [address] Dr. Leni Hamlin WBC 17.2 103/ul Critically high 4.0-11.0 [facility] Comment on above: Performed By: #### C VDAGS #### [facility] [address] [address] [address] Leni Hamlin PROF CHEM 8 (BAS METB)on Anion gap [Moles/Vol] 12.5 mmol/L Normal [facility] Comment on above: Performed By: #### C VDAGS #### [facility] [address] [place] [address] Dr. Leni Hamlin Calcium [Mass/Vol] 8.4 mg/dL Critically low 8.5-10.[address] [facility] Comment on above: Performed By: #### C VDAGS #### [facility] [address] [address] [address] Leni Hamlin Chloride [Moles/Vol] 100 mmol/L Normal 98-107 [facility] Comment on above: Performed By: #### C VDAGS #### [facility] [address] [place] [address] Dr. Leni Hamlin CO2 [Moles/Vol] 26.7 mmol/L Normal 21.0-32.0 [facility] Comment on above: Performed By: #### C VDAGS #### [facility] [address] [address] [address] Leni Hamlin Creatinine [Mass/Vol] 1.87 mg/dL Critically high 0.70-1.30 [facility] Comment on above: Performed By: #### C VDAGS #### [facility] [address] [place] [address] Dr. Leni Hamlin EGFR-AF QATARI 43 mL/min/1.73m2 Critically low >=60 [facility] Comment on above: Performed By: #### C VDAGS #### [facility] [address] [address] [address] Leni Hamlin EGFR-NON AF QATARI 36 mL/min/1.73m2 Critically low >=60 [facility] Comment on above: Performed By: #### C VDAGS #### [facility] [address] [address] [address] Leni Hamlin Glucose [Mass/Vol] 222 mg/dL Critically high 74-106 [facility] Comment on above: Performed By: #### C VDAGS #### [facility] [address] [place] [address] Dr. Leni Hamlin Potassium [Moles/Vol] 4.2 mmol/L Normal 3.5-5.1 [facility] Comment on above: Performed By: #### C VDAGS #### [facility] [address] [place] [address] Dr. Leni Hamlin Sodium [Moles/Vol] 135 mmol/L Critically low 136-[address] [facility] Comment on above: Performed By: #### C VDAGS #### [facility] [address] [place] [address] Dr. Leni Hamlin Urea nitrogen [Mass/Vol] 25.0 mg/dL Critically high 7.0-18.0 [facility] Comment on above: Performed By: #### C VDAGS #### [facility] [address] [place] [address] Dr. Leni Hamlin Urea nitrogen/Creatinine [Mass ratio] 13.4 mg/mg Normal [facility] Comment on above: Performed By: #### C VDAGS #### [facility] [address] [place] [address] Dr. Leni Hamlin Anion gap [Moles/Vol] 10.7 mmol/L Normal [facility] Comment on above: Performed By: #### B MP, BNP #### [facility] [address] [place] [address] Dr. Leni Hamlin Calcium [Mass/Vol] 8.2 mg/dL Critically low 8.5-10.1 [facility] Comment on above: Performed By: #### B MP, BNP #### [facility] [address] [place] [address] Dr. Leni Hamlin Chloride [Moles/Vol] 101 mmol/L Normal 98-107 [facility] Comment on above: Performed By: #### B MP, BNP #### [facility] [address] [place] [address] Dr. Leni Hamlin CO2 [Moles/Vol] 30.0 mmol/L Normal 21.0-32.0 [facility] Comment on above: Performed By: #### B MP, BNP #### [facility] [address] [place] [address] Dr. Leni Hamlin Creatinine [Mass/Vol] 1.49 mg/dL Critically high 0.70-1.30 [facility] Comment on above: Performed By: #### B MP, BNP #### [facility] [address] [place] [address] Dr. Leni Hamlin EGFR-AF QATARI 56 mL/min/1.73m2 Critically low >=60 [facility] Comment on above: Performed By: #### B MP, BNP #### [facility] [address] [place] [address] Dr. Leni Hamlin EGFR-NON AF QATARI 46 mL/min/1.73m2 Critically low >=60 [facility] Comment on above: Performed By: #### B MP, BNP #### [facility] [address] [place] [address] Dr. Leni Hamlin Glucose [Mass/Vol] 158 mg/dL Critically high 74-106 [facility] Comment on above: Performed By: #### B MP, BNP #### [facility] [address] [place] [address] Dr. Leni Hamlin Potassium [Moles/Vol] 5.7 mmol/L Critically high 3.5-5.1 [facility] Comment on above: Performed By: #### B MP, BNP #### [facility] [address] [place] [address] Dr. Leni Hamlin Sodium [Moles/Vol] 136 mmol/L Normal 136-145 [facility] Comment on above: Performed By: #### B MP, BNP #### [facility] [address] [place] [address] Dr. Leni Hamlin Urea nitrogen [Mass/Vol] 19.0 mg/dL Critically high 7.0-18.0 [facility] Comment on above: Performed By: #### B MP, BNP #### [facility] [address] [place] [address] Dr. Leni Hamlin Urea nitrogen/Creatinine [Mass ratio] 12.8 mg/mg Normal [facility] Comment on above: Performed By: #### B MP, BNP #### [facility] [address] [place] [address] Dr. Leni Hamlin BNPon 03-12-2022 Natriuretic peptide B (Bld) [Mass/Vol] 405.0 pg/mL Normal <=900.0 [facility] Comment on above: Performed By: #### B MP, BNP #### [facility] [address] [place] [address] Dr. Leni Hamlin CBC AUTO DIFFon 03-12-2022 BASO # 0.1 103/ul Normal 0.0-0.1 [facility] Comment on above: Performed By: #### C BC #### [facility] [address] [place] [address] Dr. Leni Hamlin Basophils/100 WBC (Bld) 0.3 % Normal 0.2-2.0 [facility] Comment on above: Performed By: #### C BC #### [facility] [address] [place] [address] Dr. Leni Hamlin EO # 0.0 103/ul Normal 0.0-0.7 [facility] Comment on above: Performed By: #### C BC #### [facility] [address] [place] [address] Dr. Leni Hamlin Eosinophils/100 WBC (Bld) 0.1 % Critically low 0.9-7.0 [facility] Comment on above: Performed By: #### C BC #### [facility] [address] [place] [address] Dr. Leni Hamlin Erythrocyte distribution width (RBC) [Ratio] 13.3 % Normal 11.0-15.0 [facility] Comment on above: Performed By: #### C BC #### [facility] [address] [place] [address] Dr. Leni Hamlin Hematocrit (Bld) [Volume fraction] 52.2 % Normal 42.0-54.0 [facility] Comment on above: Performed By: #### C BC #### [facility] [address] [address] [address] Leni Hamlin Hemoglobin (Bld) [Mass/Vol] 16.5 g/dL Normal 14.0-18.0 [facility] Comment on above: Performed By: #### C BC #### [facility] [address] [address] [address] Leni Hamlin IG # 0.19 10e3/ul Critically high 0.00-0.03 [facility] Comment on above: Performed By: #### C BC #### [facility] [address] [address] [address] Leni Hamlin IG % 1.0 % Critically high 0.0-0.5 [facility] Comment on above: Performed By: #### C BC #### [facility] [address] [place] [address] Dr. Leni Hamlin LYMPH # 0.8 103/ul Critically low 1.2-3.8 [facility] Comment on above: Performed By: #### C BC #### [facility] [address] [place] [address] Dr. Leni Hamlin Lymphocytes/100 WBC (Bld) 3.8 % Critically low 20.5-60.0 [facility] Comment on above: Performed By: #### C BC #### [facility] [address] [place] [address] Dr. Leni Hamlin MANUAL DIFF REQ NO Normal [facility] Comment on above: Performed By: #### C BC #### [facility] [address] [place] [address] Dr. Leni Hamlin MCH (RBC) [Entitic mass] 29.6 pg Normal 25.9-34.0 [facility] Comment on above: Performed By: #### C BC #### [facility] [address] [place] [address] Dr. Leni Hamlin MCHC (RBC) [Mass/Vol] 31.6 g/dL Normal 29.9-35.2 [facility] Comment on above: Performed By: #### C BC #### [facility] [address] [address] [address] Leni Hamlin MCV (RBC) [Entitic vol] 93.7 fL Normal 80.0-94.0 [facility] Comment on above: Performed By: #### C BC #### [facility] [address] [place] [address] Dr. Leni Hamlin MONO # 1.6 103/ul Critically high 0.3-0.8 [facility] Comment on above: Performed By: #### C BC #### [facility] [address] [place] [address] Dr. Leni Hamlin Monocytes/100 WBC (Bld) 8.3 % Normal 1.7-12.0 [facility] Comment on above: Performed By: #### C BC #### [facility] [address] [place] [address] Dr. Lnei Hamlin NEUT # 17.0 103/ul Critically high 1.4-6.5 [facility] Comment on above: Performed By: #### C BC #### [facility] [address] [place] [address] Dr. Leni Hamlin Neutrophils/100 WBC (Bld) 86.5 % Critically high 43.0-75.0 [facility] Comment on above: Performed By: #### C BC #### [facility] [address] [place] [address] Dr. Leni Hamlin Platelet mean volume (Bld) [Entitic vol] 10.0 fL Normal 9.5-13.5 [facility] Comment on above: Performed By: #### C BC #### [facility] [address] [place] [address] Dr. Leni Hamlin PLT 194 103/ul Normal 150-450 [facility] Comment on above: Performed By: #### C BC #### [facility] [address] [place] [address] Dr. Leni Hamlin RBC 5.57 106/ul Normal 4.70-6.10 [facility] Comment on above: Performed By: #### C BC #### [facility] [address] [place] [address] Dr. Leni Hamlin WBC 19.7 103/ul Critically high 4.0-11.0 [facility] Comment on above: Performed By: #### C #### [facility] [id number] Leni Hamlin CT CSPINE WO CONon 2 CT CSPINE WO CON EXAMINATION: CT CSPI NE WO CON HISTORY: UNSPECIFIED INJURY OF HEAD, [...] CTA CHEST WO W CON EXAMINATION: CTA SERGIO ST WO W CON HISTORY: SHORTNESS OF BREATH [...] by: CIERA HERNÁNDEZ Date: 2022-03-12 14:46 Normal [facility] CULTURE BLOODon 03-12-2022 Microscopic examination of blood, culture Culture Observations: NO GROWTH AT 5 DAYS. Normal [facility] Comment on above: Performed By: #### C MP, CRP #### [facility] [address] [place], [place] [address] Dr. Leni Hamlin Microscopic examination of blood, culture Culture Observations: NO GROWTH AT 5 DAYS. Normal [facility] Comment on above: Performed By: #### C MP, CRP #### [facility] [address] [place], [place] [address] Dr. Leni Hamlin Covid-19 PCR ([facility])on SARS-CoV-2 (COVID-19) RNA VENESSA+probe Ql [...] Administration (FDA). This test was developed by [employer], [place], [place]. The performance characteristics of this [...] for this test is supported by the [employer] of Health and Human Service's declaration that [...] #### [facility] [address] [place], [place] [address] Dr. Leni Hamlin D-DIMERon 03-12-2022 D-DIMER 6.00 mg/L FEU Critically high 0.19-0.50 [facility] Comment on above: Performed By: #### B MP, BNP #### [facility] [address] [place], [place] [address] Dr. Leni Hamlin D-DIMER COMMENTS SEE BELOW Normal [facility] Comment on above: Result Comment: Incr [...] BNP #### [facility] [address] [place] [address] Dr. Leni HERBERT URINE PROFILEon 2 Bilirubin Ql (U) Negative Normal NEGATIVE [facility] Comment on above: Performed By: #### C RP #### [facility] [address] [place] [address] Dr. Leni Hamlin Clarity (U) CLEAR Normal CLEAR [facility] Comment on above: Performed By: #### C RP #### [facility] [address] [place] [address] Dr. Leni Hamlin Color (U) YELLOW Normal YELLOW [facility] Comment on above: Performed By: #### C RP #### [facility] [address] [place] [address] Dr. Leni Hamlin ERUAHD A micrscopic examina tion will be performed if indicated. Normal [facility] Comment on above: Performed By: #### C RP #### [facility] [address] [place] [address] Dr. Leni aHmlin Glucose Ql (U) Negative Normal NEGATIVE [facility] Comment on above: Performed By: #### C RP #### [facility] [address] [place] [address] Dr. Leni Hamlin Hemoglobin Ql (U) SMALL Abnormal NEGATIVE [facility] Comment on above: Performed By: #### C RP #### [facility] [address] [place] [address] Dr. Leni Hamlin Ketones Ql (U) Negative Normal NEGATIVE [facility] Comment on above: Performed By: #### C RP #### [facility] [address] [place] [address] Dr. Leni Hamlin LEUKOCYTES Negative Normal NEGATIVE [facility] Comment on above: Performed By: #### C RP #### [facility] [address] [place] [address] Dr. Leni Hamlin Nitrite Ql (U) Negative Normal NEGATIVE [facility] Comment on above: Performed By: #### C RP #### [facility] [address] [place] [address] Dr. Leni Hamlin pH (U) 5.5 [pH] Normal 5-9 [facility] Comment on above: Performed By: #### C RP #### [facility] [address] [place] [address] Dr. Leni Hamlin SPEC GRAVITY <=1.005 Abnormal 1.005-<=1.[address] [place] [address] Comment on above: Performed By: #### C RP #### [facility] [address] [place] [address] Dr. Leni Hamlin UA PROTEIN >300 Abnormal NEGATIVE/ TRACE [facility] Comment on above: Performed By: #### C RP #### [facility] [address] [place] [address] Dr. Leni Hamlin UR MICRO IND INDICATED Normal [facility] Comment on above: Performed By: #### C RP #### [facility] [address] [place] [address] Dr. Leni Hamlin Urobilinogen Qn (U) 0.2 {Stacy'U}/dL Normal 0.2 - 1. 0 [facility] Comment on above: Performed By: #### C RP #### [facility] [address] [place] [address] Dr. Leni Hamlin LACTATE/LACTIC ACIDon 2021 Lactate [Moles/Vol] 0.5 mmol/L Normal 0.4-2.0 [facility] Comment on above: Performed By: #### B MP, BNP #### [facility] [address] [place] [address] Dr. Leni Hamlin Lactate [Moles/Vol] 1.6 mmol/L Normal 0.4-2.0 [facility] Comment on above: Performed By: #### L ACT #### [facility] [address] [place] [address] Dr. Leni Hamlin PROF 14(COMP METB)on 022 Albumin [Mass/Vol] 3.1 g/dL Critically low 3.4-5.[address] [facility] Comment on above: Performed By: #### B MP, BNP #### [facility] [address] [place] [address] Dr. Leni Hamlin Albumin/Globulin [Mass ratio] 0.8 {ratio} Normal [facility] Comment on above: Performed By: #### B MP, BNP #### [facility] [address] [place] [address] Dr. Leni Hamlin ALP [Catalytic activity/Vol] 52 U/L Normal 46-116 [facility] Comment on above: Performed By: #### B MP, BNP #### [facility] [address] [place] [address] Dr. Leni Hamlin ALT [Catalytic activity/Vol] 27 U/L Normal 16-63 [facility] Comment on above: Performed By: #### B MP, BNP #### [facility] [address] [place] [address] Dr. Leni Hamlin Anion gap [Moles/Vol] 12.9 mmol/L Normal [facility] Comment on above: Performed By: #### B MP, BNP #### [facility] [address] [place] [address] Dr. Leni Hamlin AST [Catalytic activity/Vol] 14 U/L Critically low 15-37 [facility] Comment on above: Performed By: #### B MP, BNP #### [facility] [address] [place] [address] Dr. Leni Hamlin Bilirubin [Mass/Vol] 1.2 mg/dL Critically high 0.2-1.0 [facility] Comment on above: Performed By: #### B MP, BNP #### [facility] [address] [place] [address] Dr. Leni Hamlin Calcium [Mass/Vol] 8.2 mg/dL Critically low 8.5-10.[address] [facility] Comment on above: Performed By: #### B MP, BNP #### [facility] [address] [place] [address] Dr. Leni Hamlin Chloride [Moles/Vol] 99 mmol/L Normal 98-107 [facility] Comment on above: Performed By: #### B MP, BNP #### [facility] [address] [place] [address] Dr. Leni Hamlin CO2 [Moles/Vol] 28.4 mmol/L Normal 21.0-32.0 [facility] Comment on above: Performed By: #### B MP, BNP #### [facility] [address] [place] [address] Dr. Leni Hamlin Creatinine [Mass/Vol] 1.44 mg/dL Critically high 0.70-1.30 [facility] Comment on above: Performed By: #### B MP, BNP #### [facility] [address] [place] [address] Dr. Leni Hamlin EGFR-AF QATARI 58 mL/min/1.73m2 Critically low >=60 [facility] Comment on above: Performed By: #### B MP, BNP #### [facility] [address] [place] [address] Dr. Leni Hamlin EGFR-NON AF QATARI 48 mL/min/1.73m2 Critically low >=60 [facility] Comment on above: Performed By: #### B MP, BNP #### [facility] [address] [place] [address] Dr. Leni Hamlin Globulin (S) [Mass/Vol] 3.8 g/dL Normal [facility] Comment on above: Performed By: #### B MP, BNP #### [facility] [address] [place] [address] Dr. Leni Hamlin Glucose [Mass/Vol] 137 mg/dL Critically high 74-106 [facility] Comment on above: Performed By: #### B MP, BNP #### [facility] [address] [place] [address] Dr. Leni Hamlin Potassium [Moles/Vol] 4.3 mmol/L Normal 3.5-5.1 [facility] Comment on above: Performed By: #### B MP, BNP #### [facility] [address] [place] [address] Dr. Leni Hamlin Protein [Mass/Vol] 6.9 g/dL Normal 6.1-8.2 [facility] Comment on above: Performed By: #### B MP, BNP #### [facility] [address] [place] [address] Dr. Leni Hamlin Sodium [Moles/Vol] 136 mmol/L Normal 136-145 [facility] Comment on above: Performed By: #### B MP, BNP #### [facility] [address] [place] [address] Dr. Leni Hamlin Urea nitrogen [Mass/Vol] 15.0 mg/dL Normal 7.0-18.0 [facility] Comment on above: Performed By: #### B MP, BNP #### [facility] [address] [place] [address] Dr. Leni Hamlin Urea nitrogen/Creatinine [Mass ratio] 10.4 mg/mg Normal [facility] Comment on above: Performed By: #### B MP, BNP #### [facility] [address] [place] [address] Dr. Leni Hamlin PROTIMEon 03-12-2022 INR Coag (PPP) [Relative time] 1.07 {INR} Normal [facility] Comment on above: Performed By: #### B MP, BNP #### [facility] [address] [place] [address] Dr. Leni Hamlin INR GUIDELINES SEE BELOW Normal [facility] Comment on above: Result Comment: WAQAS RED INR: 2.0 - 3.0 CONDITIONS NOT LISTED BELOW 2.5 - 3.5 FOR PROSTHETIC HEART VALVE REPLACEMENT 2.5 - 3.5 RECURRENT THROMBOSIS Performed By: #### B MP, BNP #### [facility] [address] [place] [address] Dr. Leni Hamlin PT Coag (PPP) [Time] 11.5 s Normal 9.0-11.6 [facility] Comment on above: Performed By: #### B MP, BNP #### [facility] [address] [place] [address] Dr. Leni Hamlin TROPONIN, HIGH SENSITIVITYon 03-12-2022 HSTROP 12.8 pg/mL Normal 4.0-76.1 [facility] Comment on above: Result Comment: CUT- OFF POINTS HAVE BEEN ESTABLISHED BASED ON THE FOURTH UNIVERSAL DEFINITIONS OF MYOCARDIAL INFARCTION. THE UPPER REFERENCE LIMIT (URL) OF TROPONIN, DEFINED THE 99TH PERCENTILE OF cTnI DISTRIBUTION IN A REFERENCE POPULATION, HAS BEEN CONFIRMED THE DECISION THRESHOLD FOR PR DIAGNOSIS. Performed By: #### B MP, BNP #### [facility] [address] [place] [address] Dr. Leni Hamlin URINE MICROSCOPIC ONLYon BACTERIA NONE SEEN Normal NONE SEEN [facility] Comment on above: Performed By: #### C RP #### [facility] [address] [place] [address] Dr. Leni Hamlin Bacteria identified Cx Nom (U) NOT INDICATED Normal [facility] Comment on above: Performed By: #### C RP #### [facility] [address] [place] [address] Dr. Leni Hamlin CAST NONE SEEN Normal NONE SEEN [facility] Comment on above: Performed By: #### C RP #### [facility] [address] [place] [address] Dr. Leni Hamlin Crystals LM Nom (Urine sed) NONE SEEN Normal NONE SEEN [facility] Comment on above: Performed By: #### C RP #### [facility] [address] [place] [address] Dr. Leni Hamlin Epithelial cells LM Ql (Urine sed) NONE SEEN Normal NONE SEEN /RARE [facility] Comment on above: Performed By: #### C RP #### [facility] [address] [place] [address] Dr. Leni Hamlin MUCOUS MODERATE Abnormal NONE SEEN [facility] Comment on above: Performed By: #### C RP #### [facility] [address] [place] [address] Dr. Leni Hamlin RBC 2-5 Abnormal 0-2 [facility] Comment on above: Performed By: #### C RP #### [facility] [address] [place] [address] Dr. Leni Hamlin WBC NONE SEEN Normal NONE SEEN [facility] Comment on above: Performed By: #### C RP #### [facility] [address] [place], [place] [address] Dr. Leni Hamlin XR RIBS RT PA [...] [facility]09 SARS-CoV-2 (COVID-19) RNA VENESSA+probe Ql [...] for this test is supported by the [place] of Health and Human Service's (HHS's) declaration [...] #### [facility] [address] [place], [place] [address] Dr. Leni Hamlin INFLUENZA A AND B AGon 01-25 INFLUANEGH SEE BELOW Normal [facility] Comment on above: Result Comment: Nega tive for Flu A protein angiten. Infection due to Flu A cannot be ruled out. Flu A angiten in the sample may be below the detection limit of the test. Performed By: #### C RP #### [facility] [address] [place] [address] Dr. Leni Hamlin [facility] SEE BELOW Normal [facility] Comment on above: Result Comment: Nega tive for Flu B protein antigen. Infection due to Flu B cannot be ruled out. Flu B antigen in the sample may be below the detection limit of the test. Performed By: #### C RP #### [facility] [address] [place] [address] Dr. Leni Hamlin INFLUENZA A AG Negative Normal NEGATIVE SEE COMMENT [facility] Comment on above: Performed By: #### C RP #### [facility] [address] [place] [address] Dr. Leni Hamlin INFLUENZA B AG Negative Normal NEGATIVE SEE COMMENT [facility] Comment on above: Performed By: #### C RP #### [facility] [address] [place] [address] Dr. Leni Hamlin INTERNAL CONTROLS Within Normal Limits Normal Wi thin Normal Limits [facility] Comment on above: Performed By: #### C RP #### [facility] [address] [place] [address] Dr. Leni Hamlin COVID-19 Antigenon 2 COVID-19 [...] its performance Cindy Disclaimer characteristic determined by [employer] and Cindy Disclaimer validated at [facility]. This Cindy Disclaimer test has [...] is terminated or revoked sooner. PERFORMED BY: [place] [id number] PATHOLOGIST GENERAL UTILITY MAINTENANCE REPAIRER ZOHAIB JEWELL M.D. [facility] Comment on above: Performed By: #### C OVID-19 CINDY, SOFIANEG #### [facility] [address] [place] [id number] [facility] Cindy Ag Negativeon 12-01-19 Cindy Ag Negative Negative Normal Negative [facility] Comment on above: Result Comment: This is a duplicate Cindy SARS Antigen (JENNIFER) result to be used for statistical tracking purpose only. PERFORMED BY: [place] [id number] PATHOLOGIST GENERAL UTILITY MAINTENANCE REPAIRER ZOHAIB JEWELL M.D. Performed By: #### C OVID-19 CINDY, SOFIANEG #### [facility] [address] [place] [address] [facility] Vital Signs Date Time Vital Sign Value Performing Clinician Facility 09-21-2024 14:22-0500 Body mass index (BMI) [Ratio] 35 kg/m2 Fred Gonzalez MD Work Phone: [facility] 09-21-2024 14:22-0500 Body temperature 97.81 [degF] Fred Gonzalez MD Work Phone: [facility] 09-21-2024 14:22-0500 Body weight 98.3 kg Fred Gonzalez MD Work Phone: [facility] 09-21-2024 14:22-0500 Diastolic blood pressure 83 mm[Hg] Fred Gonzalez MD Work Phone: [facility] 09-21-2024 14:22-0500 Heart rate 88 /min Fred Gonzalez MD Work Phone: [facility] 09-21-2024 14:22-0500 Respiratory rate 18 /min Fred Gonzalez MD Work Phone: [facility] 09-21-2024 14:22-0500 SaO2% (BldA) [Mass fraction] 94 % Fred Gonzalez MD Work Phone: [facility] 09-21-2024 14:22-0500 Systolic blood pressure 150 mm[Hg] Fred escobedo MD Work Phone: [facility] 09-07-2024 13:45-0400 Body height 167.6 cm Fred Gonzalez MD Work Phone: [facility] 09-07-2024 13:45-0400 Body mass index (BMI) [Ratio] 35.21 kg/m2 Fred Gonzalez MD Work Phone: [facility] 09-07-2024 13:45-0400 Body temperature 97.2 [degF] Fred Gonzalez MD Work Phone: [facility] 09-07-2024 13:45-0400 Body weight 98.9 kg Fred Gonzalez MD Work Phone: [facility] 09-07-2024 13:45-0400 Diastolic blood pressure 98 mm[Hg] Fred Gonzalez MD Work Phone: [facility] 09-07-2024 13:45-0400 Heart rate 78 /min Fred Gonzalez MD Work Phone: [facility] 09-07-2024 13:45-0400 Respiratory rate 16 /min Fred Gonzalez MD Work Phone: [facility] 09-07-2024 13:45-0400 SaO2% (BldA) [Mass fraction] 94 % Fred Gonzalez MD Work Phone: [facility] 09-07-2024 13:45-0400 Systolic blood pressure 162 mm[Hg] Fred escobedo MD Work Phone: [facility] 08-27-2024 13:09-0400 Body mass index (BMI) [Ratio] 34.94 kg/m2 Fred Gonzalez MD Work Phone: [facility] 08-27-2024 13:09-0400 Body temperature 97.3 [degF] Fred Gonzalez MD Work Phone: [facility] 08-27-2024 13:09-0400 Body weight 98.2 kg Fred Gonzalez MD Work Phone: [facility] 08-27-2024 13:09-0400 Diastolic blood pressure 85 mm[Hg] Fred Gonzalez MD Work Phone: [facility] 08-27-2024 13:09-0400 Heart rate 91 /min Fred Gonzalez MD Work Phone: [facility] 08-27-2024 13:09-0400 Respiratory rate 18 /min Fred Gonzalez MD Work Phone: [facility] 08-27-2024 13:09-0400 SaO2% (BldA) [Mass fraction] 95 % Fred Gonzalez MD Work Phone: [facility] 08-27-2024 13:09-0400 Systolic blood pressure 128 mm[Hg] Fred escobedo MD Work Phone: [facility] 08-17-2024 12:31-0400 Body height 167.6 cm Pacc 1 Other Phone: [facility] 08-17-2024 12:31-0400 Body mass index (BMI) [Ratio] 34.3 kg/m2 Pacc 1 Other Phone: [facility] 08-17-2024 12:31-0400 Body temperature 96.69 [degF] Pacc 1 Other Phone: [facility] 08-17-2024 12:31-0400 Body weight 96.4 kg Pacc 1 Other Phone: [facility] 08-17-2024 12:31-0400 Diastolic blood pressure 72 mm[Hg] Pacc 1 Other Phone: [facility] 08-17-2024 12:31-0400 Heart rate 69 /min Pacc 1 Other Phone: [facility] 08-17-2024 12:31-0400 Respiratory rate 18 /min Pacc 1 Other Phone: [facility] 08-17-2024 12:31-0400 SaO2% (BldA) [Mass fraction] 96 % Pacc 1 Other Phone: [facility] 08-17-2024 12:31-0400 Systolic blood pressure 138 mm[Hg] Pacc 1 Other Phone: [facility] 07-30-2024 14:21-0400 Body height 166.9 cm Fred Gonzalez MD Work Phone: [facility] 07-30-2024 14:21-0400 Body mass index (BMI) [Ratio] 35.29 kg/m2 Fred Gonzalez MD Work Phone: [facility] 07-30-2024 14:21-0400 Body weight 98.3 kg Fred Gonzalez MD Work Phone: [facility] 07-30-2024 14:21-0400 Diastolic blood pressure 76 mm[Hg] Fred Gonzalez MD Work Phone: [facility] 07-30-2024 14:21-0400 Heart rate 68 /min Fred Gonzalez MD Work Phone: [facility] 07-30-2024 14:21-0400 Respiratory rate 16 /min Fred Gonzalez MD Work Phone: [facility] 07-30-2024 14:21-0400 SaO2% (BldA) [Mass fraction] 95 % Fred Gonzalez MD Work Phone: [facility] 07-30-2024 14:21-0400 Systolic blood pressure 123 mm[Hg] Fred escobedo MD Work Phone: [facility] 07-30-2024 13:05-0400 Body mass index (BMI) [Ratio] 35.22 kg/m2 Noah Harrison MD Work Phone: [facility] 07-30-2024 13:05-0400 Body temperature 97.5 [degF] Noah Harrison MD Work Phone: [facility] 07-30-2024 13:05-0400 Body weight 98.1 kg Noah Harrison MD Work Phone: [facility] 07-30-2024 13:05-0400 Diastolic blood pressure 76 mm[Hg] Noah Harrison MD Work Phone: [facility] 07-30-2024 13:05-0400 Heart rate 68 /min Noah Harrison MD Work Phone: [facility] 07-30-2024 13:05-0400 Respiratory rate 16 /min Noah Harrison MD Work Phone: [facility] 07-30-2024 13:05-0400 SaO2% (BldA) [Mass fraction] 95 % Noah Harrison MD Work Phone: [facility] 07-30-2024 13:05-0400 Systolic blood pressure 123 mm[Hg] Noah Harrison MD Work Phone: [facility] 07-22-2024 13:30-0400 Body height 166.9 cm Micha Avina MD Work Phone: [facility] 07-22-2024 13:30-0400 Body mass index (BMI) [Ratio] 34.03 kg/m2 Micha Avina MD Work Phone: [facility] 07-22-2024 13:30-0400 Body temperature 97.3 [degF] Micha Avina MD Work Phone: [facility] 07-22-2024 13:30-0400 Body weight 94.8 kg Micha Avina MD Work Phone: [facility] 07-22-2024 13:30-0400 Diastolic blood pressure 79 mm[Hg] Micha Avina MD Work Phone: [facility] 07-22-2024 13:30-0400 Heart rate 67 /min Micha Avina MD Work Phone: [facility] 07-22-2024 13:30-0400 SaO2% (BldA) [Mass fraction] 98 % Micha Avina MD Work Phone: [facility] 07-22-2024 13:30-0400 Systolic blood pressure 150 mm[Hg] Micha Avina MD Work Phone: [facility] 07-22-2024 11:16-0400 Body height 166.9 cm Sangeetha Earl MD Work Phone: [facility] 07-22-2024 11:16-0400 Body mass index (BMI) [Ratio] 34.18 kg/m2 Sangeetha Earl MD Work Phone: [facility] 07-22-2024 11:16-0400 Body temperature 97.3 [degF] Sangeetha Earl MD Work Phone: [facility] 07-22-2024 11:16-0400 Body weight 95.2 kg Sangeetha Earl MD Work Phone: [facility] 07-22-2024 11:16-0400 Diastolic blood pressure 79 mm[Hg] Sangeetha Earl MD Work Phone: [facility] 07-22-2024 11:16-0400 Heart rate 67 /min Sangeetha Earl MD Work Phone: [facility] 07-22-2024 11:16-0400 Respiratory rate 18 /min Sangeetha Earl MD Work Phone: [facility] 07-22-2024 11:16-0400 SaO2% (BldA) [Mass fraction] 98 % Sangeetha Earl MD Work Phone: [facility] 07-22-2024 11:16-0400 Systolic blood pressure 150 mm[Hg] Sangeetha Mas Work Phone: [facility] 07-03-2024 14:45-0400 Body height 165.1 cm Tamiko Laffey [employer] Work Phone: [facility] 07-03-2024 14:45-0400 Body mass index (BMI) [Ratio] 36.59 kg/m2 Tamiko Laffey [employer] Work Phone: [facility] 07-03-2024 14:45-0400 Body temperature 98.01 [degF] Tamiko Laffey [employer] Work Phone: [facility] 07-03-2024 14:45-0400 Body weight 99.75 kg Tamiko Laffey [employer] Work Phone: [facility] 07-03-2024 14:45-0400 Diastolic blood pressure 70 mm[Hg] Tamiko Laffey [employer] Work Phone: [facility] 07-03-2024 14:45-0400 Heart rate 75 /min Tamiko Laffey [employer] Work Phone: [facility] 07-03-2024 14:45-0400 SaO2% (BldA) [Mass fraction] 96 % Tamiko Laffey [employer] Work Phone: [facility] 07-03-2024 14:45-0400 Systolic blood pressure 136 mm[Hg] Tamiko Laffey [employer] Work Phone: [facility] 06-19-2024 15:29-0400 SaO2% (BldA) [Mass fraction] 99 % [facility] Comment on above: Order Comment: Specimen Type: ARTERIAL B LOOD SPECIMENOrdering Facility: [facility] Address: [address] [place], [place] [id number] Performed By: #### A LLBG ####[facility] LABIA [id number] [address] [address] [place] 06-19-2024 13:33-0400 SaO2% (BldA) [Mass fraction] 100 % [facility] Comment on above: Order Comment: Specimen Type: ARTERIAL B LOOD SPECIMENOrdering Facility: [facility] Address: [address] [place], [place] [id number] Performed By: #### A LLBG ####[facility] LABIA [id number] [place] [id number] [place] 06-19-2024 11:34-0400 SaO2% (BldA) [Mass fraction] 100 % [facility] Comment on above: Order Comment: Specimen Type: ARTERIAL B LOOD SPECIMENOrdering Facility: [facility] Address: [address] [place], [place] [id number] Performed By: #### A LLBG ####[facility] LABIA [id number] [place] [id number] [place] 06-19-2024 09:33-0400 SaO2% (BldA) [Mass fraction] 99 % [facility] Comment on above: Order Comment: Specimen Type: ARTERIAL B LOOD SPECIMENOrdering Facility: [facility] Address: [address] [place], [place] [id number] Performed By: #### A LLBG ####[facility] LABIA [id number] [place] [id number] [place] 06-19-2024 08:04-0400 SaO2% (BldA) [Mass fraction] 99 % [facility] Comment on above: Order Comment: Specimen Type: ARTERIAL B LOOD SPECIMENOrdering Facility: [facility] Address: [address] [place], [place] [id number] Performed By: #### A LLBG ####[facility] LABCLIA [id number] [address] [address] [facility] 06-19-2024 06:15-0400 SaO2% (BldA) [Mass fraction] 100 % [facility] Comment on above: Order Comment: Specimen Type: ARTERIAL B LOOD SPECIMENOrdering Facility: [facility] Address: [address] [place], [place] [id number] Performed By: #### A LLBG ####[facility] LABCLIA [id number] [place] [id number] [facility] 06-19-2024 04:54-0400 SaO2% (BldA) [Mass fraction] 100 % [facility] Comment on above: Order Comment: Specimen Type: ARTERIAL B LOOD SPECIMENOrdering Facility: [facility] Address: [address] [place], [place] [id number] Performed By: #### A LLBG ####[facility] LABIA [id number] [place] [id number] [place] 06-19-2024 03:47-0400 SaO2% (BldA) [Mass fraction] 99 % [facility] Comment on above: Order Comment: Specimen Type: ARTERIAL B LOOD SPECIMENOrdering Facility: [facility] Address: [address] [place], [place] [address] Performed By: #### A LLBG ####[facility] LABCLIA [id number] [address] [address] [place] 06-19-2024 01:36-0400 SaO2% (BldA) [Mass fraction] 99 % [facility] Comment on above: Order Comment: Specimen Type: ARTERIAL B LOOD SPECIMENOrdering Facility: [facility] Address: [address] [place], [place] [address] Performed By: #### A LLBG ####[facility] LABCLIA [id number] [place] [id number] [place] 06-19-2024 00:21-0400 SaO2% (BldA) [Mass fraction] 99 % [facility] Comment on above: Order Comment: Specimen Type: ARTERIAL B LOOD SPECIMENOrdering Facility: [facility] Address: [address] [place], [place] [address] Performed By: #### A LLBG ####[facility] LABCLIA [id number] [place] [id number] [place] 06-18-2024 21:39-0400 SaO2% (BldA) [Mass fraction] 100 % [facility] Comment on above: Order Comment: Specimen Type: ARTERIAL B LOOD SPECIMENOrdering Facility: [facility] Address: [address] [place] [address] Performed By: #### A LLBG ####[facility] LABIA [id number] [place] [id number] [place] 06-18-2024 19:54-0400 SaO2% (BldA) [Mass fraction] 99 % ELENO [facility] Comment on above: Order Comment: Specimen Type: ARTERIAL B LOOD SPECIMENOrdering Facility: [facility] Address: [address] [place], [place] [id number] Performed By: #### A LLBG ####[facility] LABCLIA [id number] [place] [id number] [place] 06-18-2024 18:48-0400 SaO2% (BldA) [Mass fraction] 100 % ELENO JIMENEZ [facility] Comment on above: Order Comment: Specimen Type: ARTERIAL B LOOD SPECIMENOrdering Facility: [facility] Address: [address] [place] [address] Performed By: #### A LLBG ####[facility] LABCLIA [id number] [place] [id number] [place] [facility] 06-18-2024 18:20-0400 SaO2% (BldA) [Mass fraction] 100 % ELENO JIMENEZ [facility] Comment on above: Order Comment: Specimen Type: ARTERIAL B LOOD SPECIMENOrdering Facility: [facility] Address: [address] [place], [place] [id number] Performed By: #### A LLBG ####[facility] LABCLIA [id number] [place] [id number] [place] 06-18-2024 17:43-0400 SaO2% (BldA) [Mass fraction] 100 % ELENO [facility] Comment on above: Order Comment: Specimen Type: ARTERIAL B LOOD SPECIMENOrdering Facility: [facility] Address: [address] [place] [address] Performed By: #### A LLBG ####[facility] LABCLIA [id number] [address] [place] 06-18-2024 17:23-0400 SaO2% (BldA) [Mass fraction] 99 % ELENO [facility] Comment on above: Order Comment: Specimen Type: ARTERIAL B LOOD SPECIMENOrdering Facility: [facility] Address: [address] [place] [address] Performed By: #### A LLBG ####[facility] LABIA [id number] [place] [id number] [place] 06-18-2024 15:36-0400 SaO2% (BldA) [Mass fraction] 100 % ELENO [facility] Comment on above: Order Comment: Specimen Type: ARTERIAL B LOOD SPECIMENOrdering Facility: [facility] Address: [address] [place] [address] Performed By: #### A LLBG ####[facility] LABCLIA [id number] [place] [id number] [place] 06-18-2024 15:11-0400 SaO2% (BldA) [Mass fraction] 100 % ELENO JIMENEZ [facility] Comment on above: Order Comment: Specimen Type: ARTERIAL B LOOD SPECIMENOrdering Facility: [facility] Address: [address] [place] [address] Performed By: #### A LLBG ####[facility] LABCLIA [id number] [place] [id number] [place] 06-18-2024 14:30-0400 SaO2% (BldA) [Mass fraction] 100 % ELENO JIMENEZ [facility] Comment on above: Order Comment: Specimen Type: ARTERIAL B LOOD SPECIMENOrdering Facility: [facility] Address: [address] [place] [address] Performed By: #### A LLBG ####[facility] LABCLIA [id number] [place] [id number] [place] 06-18-2024 11:15-0400 SaO2% (BldA) [Mass fraction] 97 % ELENO JIMENEZ [facility] Comment on above: Order Comment: Specimen Type: ARTERIAL B LOOD SPECIMENOrdering Facility: [facility] Address: [address] [place] [address] Performed By: #### A LLBG ####[facility] LABCLIA [id number] [place] [id number] [place] Encounters Encounter Date Encounter Type Care Provider Facility Start: [facility]30-[facility] Start: [facility]-15-[facility]25 amb[facility] Start: 06-14-2025 ambulatory [facility] Start: 06-08-20[facility] Start: 05-25-2025 ambulatory [facility] Start: 04-12-2025 ambulatory [facility] Start: 03-24-2025 ambulatory [facility] Start: 03-11-2025 End: 03-11-2025 ambulatory DARRELL [facility] Start: 03-09-2025 ambulatory [facility] Start: 03-02-2025 End: 03-02-2025 ambulatory [facility] Start: 12-29-2024 End: 12-29-2024 Telephone encounter Elliott Sanchez MD Work Phone: Urology Comment on above: 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 - 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 Start: 11-25-2024 End: 11-25-2024 ambulatory Elliott Sanchez MD Work Phone: Urology Comment on above: NO SHOW (Primary Dx) Start: 11-25-2024 End: 11-25-2024 Telemedicine consultation with patient Elliott Sanchez MD Work Phone: Urology Start: 11-20-2024 End: 11-20-2024 [facility] Start: 10-01-2024 End: 10-01-2024 Telephone encounter Fred Gonzalez MD Work Phone: Cancer Appts Start: 09-22-2024 End: 09-25-2024 Telephone encounter Noah Harrison MD Work Phone: Radiation Oncology Comment on above: Appointment; Patient Update Start: 09-21-2024 End: 09-21-2024 Office outpatient visit 15 minutes Fred Gonzalez MD Work Phone: Hematology/Oncology Comment on above: Rectal cancer (HCC) (Primary Dx) Start: 09-21-2024 End: 09-21-2024 ambulatory FRED GONZALEZ Facility:[facility] Start: 09-18-2024 End: 09-21-2024 Telephone encounter Noah Harrison MD Work Phone: Radiation Oncology Comment on above: Appointment Start: 09-08-2024 End: 09-08-2024 ambulatory NOAH HARRISON Facility:[facility] Start: 09-08-2024 End: 09-08-2024 Subsequent hospital visit by physician Arrival Time Radiology Work Phone: Radiology Pet CT Comment on above: Rectal cancer (HCC) [C20] Start: 09-07-2024 End: 09-07-2024 Nursing evaluation of patient and report Abril Gardner RN Work Phone: Hematology/Oncology Comment on above: Rectal cancer (HCC) (Primary Dx) Start: 09-07-2024 End: 09-07-2024 Office outpatient visit 15 minutes Fred Gonzalez MD Work Phone: Hematology/Oncology Comment on above: Rectal cancer (HCC) (Primary Dx) Start: 09-07-2024 End: 09-07-2024 Patient encounter procedure [facility] Provider [facility] Department Start: 09-07-2024 End: 09-07-2024 Telephone encounter Abril Gardner RN Work Phone: Hematology/Oncology Comment on above: Care Coordination (B CG treatments) Start: 09-07-2024 End: 09-08-2024 ambulatory FRED GONZALEZ Facility:[facility] Start: 09-04-2024 End: 09-07-2024 ambulatory ELLIOT DECKER Facility:[facility] Start: 09-04-2024 End: 09-07-2024 Patient encounter procedure Noah Harrison MD Work Phone: Radiation Oncology Comment on above: Rectal cancer (HCC) (Primary Dx) Start: 09-04-2024 End: 09-07-2024 Radiation Oncology Note Noah Harrison MD Work Phone: Radiation Oncology Comment on above: Simulation Note Start: 09-04-2024 End: 09-23-2024 Telephone encounter Noah Harrison MD Work Phone: Radiation Oncology Comment on above: Patient Update Start: 09-04-2024 End: 09-04-2024 Subsequent hospital visit by physician Noah Harrison MD Work Phone: Radiology Pet CT Comment on above: Arrived Start: 09-03-2024 End: 09-03-[address] Work Phone: Nutrition Therapy Start: 09-03-2024 End: 09-03-2024 Nutrition therapy Leila Heredia RD Work Phone: Nutrition Therapy Comment on above: Nutrition Telephone Start: 08-31-2024 End: 08-31-2024 Telephone encounter Elliott Sanchez MD Work Phone: Urology Comment on above: Results Malignant neoplasm o f overlapping sites of bladder (HCC) (Primary Dx) Start: 08-28-2024 End: 08-28-2024 Telephone encounter Abril Gardner RN Work Phone: Hematology/Oncology Comment on above: Care Coordination (A ntiemetics for treatment) Start: 08-27-2024 End: 09-08-2024 Telephone encounter Fred Gonzalez MD Work Phone: Hematology/Oncology Comment on above: Care Coordination (C hemo ed) Medication Update (c apecitabine) Start: 08-27-2024 End: 08-27-2024 ambulatory [facility] Facility:[facility] Start: 08-27-2024 End: 08-27-2024 Office outpatient visit 25 minutes Fred Gonzalez MD Work Phone: Hematology/Oncology Comment on above: Rectal cancer (HCC) (Primary Dx) Start: 08-26-2024 End: 08-31-2024 Telephone encounter Noah Harrison MD Work Phone: Radiation Oncology Comment on above: Future Appointment Start: 08-25-2024 End: 08-25-2024 Telephone encounter Elliott Sanchez MD Work Phone: Urology Comment on above: Results Start: 08-20-2024 End: 08-20-2024 ambulatory [facility] Facility:[facility] Start: 08-18-2024 End: 08-21-2024 ambulatory Joaquina Dacosta APRN.BDR Work Phone: Urology Start: 08-18-2024 End: 08-18-2024 Patient encounter procedure Joaquina Dacosta CLAMP TRUCK DRIVER.BDR Work Phone: Urology Comment on above: Pre-op exam (Primary Dx) Start: 08-18-2024 End: 08-18-2024 Preprocedural examination done Joaquina Dacosta APRN.CNP Work Phone: [facility] Work Phone: Start: 08-17-2024 End: 08-17-2024 Telephone encounter Riya Liu PA-C Work Phone: Pre Anesthesia Comment on above: Pre-Op Visit Start: 08-17-2024 End: 08-17-2024 Admission to establishment [address] Other Phone: Pre Anesthesia Start: 08-17-2024 End: 08-17-2024 Patient encounter procedure [address] Other Phone: Pre Anesthesia Comment on above: Pre-op evaluation (P rimary Dx); Primary hypertension; Mixed hyperlipidemia; Coronary artery disease involving [place] coronary artery of [place] heart without angina pectoris; Atrial fibrillation, chronic (HCC); RVF (right ventricular failure) (HCC); Pacemaker; Former smoker; TEJ (obstructive sleep apnea); Stage 3 chronic kidney disease, unspecified whether stage 3a or 3b CKD (HCC); Rectal cancer (HCC); History of prostate cancer; Obesity (BMI 30-39.9); Anemia, unspecified type; Obesity, Class II, BMI 35-39.9 Start: 08-17-2024 End: 08-17-2024 Preprocedural examination done [address] Other Phone: [facility] Work Phone: Start: 08-17-2024 End: 08-17-2024 ambulatory ELLIOT DECKER Facility:[facility] Start: 08-17-2024 Encounter for other preprocedural examination ELLIOTT [facility] Start: 08-14-2024 End: 08-14-2024 ambulatory FRED GONZALEZ Facility:[facility] Start: 08-14-2024 End: 08-14-2024 Subsequent hospital visit by physician Arrival Time Radiology Work Phone: Radiology Pet CT Comment on above: Rectal cancer (HCC) [C20] Start: 08-13-2024 End: 08-14-2024 Admission to same day surgery center [facility] Provider Colorectal Surgery Comment on above: Bowel prep instructi ons Start: 08-13-2024 End: 08-14-2024 ambulatory Eleazar Garvey RN Urology Start: 08-13-2024 End: 08-14-2024 E-mail encounter from caregiver [facility] Provider Colorectal Surgery Start: 08-12-2024 End: 08-12-2024 ambulatory MODESTO [facility] Start: 08-11-2024 End: 08-11-2024 ambulatory DARRELL [facility] Start: 08-04-2024 End: 08-04-2024 Telephone encounter Christen Cleveland RN Work Phone: Radiation Oncology Comment on above: 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 - O ther (Consult notes) Start: 07-30-2024 End: 07-30-2024 Office outpatient new 60 minutes Fred Gonzalez MD Work Phone: Hematology/Oncology Comment on above: Rectal cancer (HCC) (Primary Dx); Iron deficiency anemia due to chronic blood loss; History of prostate cancer Start: 07-30-2024 End: 08-04-2024 Telephone encounter Gemma Chand RN Hematology/Oncology Comment on above: TURBRenae w/ Dr Sanchez Start: 07-30-2024 End: 07-31-2024 ambulatory JEREMIE COYNE Facility:[facility] Start: 07-30-2024 End: 07-31-2024 Patient encounter procedure Noah Harrison MD Work Phone: Radiation Oncology Comment on above: Rectal cancer (HCC) Start: 07-29-2024 End: 08-05-2024 Telephone encounter Masood Wilder MD Work Phone: Cardiology Comment on above: Post Dc Program Call - Fyi Lab Orders Start: 07-29-2024 End: 07-29-2024 ambulatory Jeremie Coyne MD Work Phone: Hematology/Oncology Comment on above: Rectal cancer (HCC) (Primary Dx) Start: 07-29-2024 End: 07-29-2024 Telemedicine consultation with patient Jeremie Coyne MD Work Phone: Hematology/Oncology Start: 07-29-2024 End: 07-29-2024 ambulatory DARRELL [facility] Start: 07-29-2024 End: 07-29-2024 ambulatory JEREMIE COYNE Facility:[facility] Start: 07-23-2024 End: 07-28-2024 Telephone encounter Jeremie Coyne MD Work Phone: Hematology/Oncology Comment on above: 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 - O ther Start: 07-22-2024 End: 07-22-2024 ambulatory JEREMIE COYNE Facility:[facility] Start: 07-22-2024 End: 07-22-2024 ambulatory Jeremie Coyne MD Work Phone: Hematology/Oncology Comment on above: Rectal cancer (HCC) Start: 07-22-2024 End: 07-22-2024 Office outpatient visit 25 minutes Micha Avina MD Work Phone: Colorectal Surgery Comment on above: Rectal cancer (HCC) (Primary Dx); Bladder mass; Prostate cancer managed with active surveillance (HCC) Start: 07-22-2024 End: 07-22-2024 ambulatory MASOOD WLIDER Facility:[facility] Start: 07-22-2024 End: 07-22-2024 Patient encounter procedure Elliott Sanchez MD Work Phone: Urology Comment on above: Screening for genito urinary condition (Primary Dx); Neoplasm of bladder Rectal cancer (HCC) Start: 07-22-2024 End: 07-22-2024 ambulatory ELLIOTT SANCHEZ Facility:[facility] Start: 07-03-2024 End: 07-03-2024 Patient encounter procedure Tamiko Mcduffie CLAMP TRUCK DRIVER.BDR Work Phone: Cardiothoracic Comment on above: S/P CABG x 3 (Primar y Dx); Atrial fibrillation, chronic (HCC); Stage 3 chronic kidney disease, unspecified whether stage 3a or 3b CKD (HCC) Start: 07-03-2024 End: 07-03-2024 ambulatory MASOOD WILDER Facility:[facility] Start: 07-03-2024 End: 07-03-2024 Subsequent hospital visit by physician Xr Chest Main J1 Work Phone: Radiology Comment on above: Surgery follow-up [Z 09] Start: 07-01-2024 End: 07-01-2024 Orders Only Masood Wilder MD Work Phone: Cardiothoracic Comment on above: Surgery follow-up (P rimary Dx); Chest pain, unspecified type Start: 06-24-2024 End: 06-24-2024 Ntrprof phone/ntrnet/ehr assmt&mgmt 11-20 min Colorectal Tb Conference () Tumor Board Comment on above: Tumor Board GI Color ectal Start: 06-22-2024 End: 06-22-2024 Evaluation and management of inpatient ELLIOT M HOY Facility:[facility] Start: 06-19-2024 End: 06-19-2024 Evaluation and management of inpatient ELLIOT M HOY Facility:[facility] Start: 06-16-2024 End: 06-16-2024 Evaluation and management of inpatient ELENODEANNA JIMENEZ Facility:[facility] Start: 06-15-2024 End: 06-15-2024 Evaluation and management of inpatient ELLIOT M HOY Facility:[facility] Start: 06-13-2024 End: 06-13-2024 Evaluation and management of inpatient DEVIN WANG Facility:[facility] Start: 06-11-2024 End: 06-26-2024 Evaluation and management of inpatient KINA ERNST Facility:[facility] Start: 05-07-2024 ambulatory [facility] Start: 03-30-2024 End: 03-31-2024 ambulatory Urvashi Rawls MD [facility]: [facility] Start: 03-02-2024 End: 03-03-2024 ambulatory Urvashi Rawls MD [facility]: [facility] Start: 01-27-2024 End: 01-28-2024 ambulatory Urvashi Rawls MD [facility]: [facility] Start: 12-30-2023 End: 12-31-2023 ambulatory Urvashi Rawls MD [facility]: [facility] Start: 09-16-2023 End: 09-17-2023 ambulatory Urvashi Rawls MD Facility: [facility] Start: 06-24-2023 End: 06-25-2023 ambulatory Urvashi Rawls MD Facility:[facility] Start: 06-10-2023 End: 06-11-2023 ambulatory Urvashi Rawls MD Facility:[facility] Start: 05-27-2023 End: 05-28-2023 ambulatory Urvashi Rawls MD Facility:[facility] Start: 01-16-2023 End: 01-16-[address] ELLIOT DECKER . Facility:[facility] Start: 12-27-[address] ELLIOT DECKER . Facili ty:[facility] Start: 12-18-2022 End: 12-18-[address] CLIFTON JHAVERI Facility:[facility] Start: 10-01-2022 End: 10-03-2022 Evaluation and management of inpatient DR ELLIOT DECKER . Facility:[facility] Start: 09-10-2022 End: 09-10-[address] ELLIOT DECKER . Facility:[facility] Start: 08-24-[address] ELLIOT DECKER . Facili ty:[facility] Start: 05-22-2022 End: 05-22-2022 ambulatory GAGANDEEP PAREDES Facility:[facility] Start: 05-21-2022 End: 05-21-2022 ambulatory GAGANDEEP PAREDES Facility:[facility] Start: 04-23-2022 End: 04-23-[address] ELLIOT DECKER . Facility:[facility] Start: 03-23-2022 End: 03-24-2022 ambulatory MODESTO SINGH Facility:[facility] Start: 03-22-2022 End: 03-23-2022 ambulatory MODESTO SINGH Facility:[facility] Start: 03-20-2022 End: 03-21-[address] ELLIOT DECKER . Facility:[facility] Start: 03-13-2022 End: 03-15-2022 Evaluation and management of inpatient DR ELLIOT DECKER . Facility:[facility] Start: 01-25-2022 End: 01-25-2022 ambulatory GAGANDEEP PAREDES Facility:[facility] Procedures Date Procedure Procedure Detail Performing Clinician Start: 09-08-2024 Gluc bld gluc mntr d ev cleared fda spec home use [facility] Provider Start: 07-22-2024 Flexible sigmoidoscopy ELENO JIMENEZ Start: 07-22-2024 Sigmoidoscopy flx dx w/collj spec br/wa if pfrmd [facility] Provider Start: 07-22-2024 CYTOLOGY NON-MEAT COUNTER WORKER Elliott pryor MD Work Phone: Start: 07-22-2024 Urnls dip stick/tabl et rgnt auto w/o microscopy Elliott Sanchez MD Work Phone: Start: 07-03-2024 Radiologic exam ches t 2 views Masood Wilder MD Work Phone: Start: 06-23-2024 Antibody screen ELENO JIMENEZ Comment on above: Order Comment: Speci men Type: BLOOD SPECIMENOrdering Facility: [facility] Address: [address] [place] [address] Performed By: #### T SCR ####CC MAIN BLOOD BANKCLIA [id number] [address] Start: 06-18-2024 Antibody screen ELENO JIMENEZ Comment on above: Order Comment: Speci men Type: BLOOD SPECIMENOrdering Facility: [facility] Address: [address] [place] [address] Performed By: #### T SCR ####CC MAIN BLOOD BANKCLIA [id number] [address] Start: 06-13-2024 Echocardiography ELENO JIMENEZ Start: 06-11-2024 Antibody screen ELENO JIMENEZ Comment on above: Order Comment: Speci men Type: BLOOD SPECIMENOrdering Facility: [facility] Address: [address] [place] [address] Performed By: #### T SCR ####CC MAIN BLOOD BANKCLIA [id number] [address] History of coronary artery bypass grafting S/P CABG x 3 Tamiko Mcduffie APRN.BDR Work Phone: Plan of Treatment Date Care Activity Detail Author Start: 09-07-2027 Diabetes Screening Diabetes Screenin g [facility] Start: 08-17-2027 Diabetes Screening Diabetes Screenin g [facility] Start: 07-30-2027 Diabetes Screening Diabetes Screenin g [facility] Start: 07-03-2027 Diabetes Screening Diabetes Screenin g [facility] Start: 06-26-2027 Diabetes Screening Diabetes Screenin g [facility] Start: 09-07-2025 Complete blood count Hemoglobin/Kevin tocrit [facility] Start: 09-07-2025 Creatinine measurement Serum Creatin ine [facility] Start: 08-17-2025 Complete blood count Hemoglobin/Kevin tocrit [facility] Start: 08-17-2025 Creatinine measurement Serum Creatin ine [facility] Start: 07-30-2025 BP Controlled (<130/80) BP Controlle d (<130/80) [facility] Start: 07-30-2025 Complete blood count Hemoglobin/Kevin tocakt [facility] Start: 07-30-2025 Creatinine measurement Serum Creatin ine [facility] Start: 07-03-2025 Complete blood count [facility] Start: 07-03-2025 Creatinine measurement Serum Creatin ine [facility] Start: 06-26-2025 Complete blood count Hemoglobin/Kevin tocrit [facility] Start: 06-26-2025 Creatinine measurement Serum Creatin ine [facility] Start: 06-16-2025 Hepatitis B surface antibody level LDL Cholesterol [facility] Start: 11-16-2024 End: 11-16-2024 Follow-up encounter 11/16/2024 2:30 PM EST Visit (SP) Office Hematology/Oncology [address] [place] [address] Fred Gonzalez MD [address] [place] [address] 8 week follow up lab Hematology/Oncology Comment on above: 8 week follow up lab Start: 11-16-2024 End: 11-16-2024 Patient encounter procedure 11/16/2024 2:15 PM EST Office Visit [facility] [address] [place] [address] 8 week follow up lab [facility] Comment on above: 8 week follow up lab Start: 11-11-2024 Advance Directive Discussion Advance Directive Discussion [facility] Start: 10-01-2024 End: 10-01-2024 Patient encounter procedure 10/01/2024 2:10 PM EST Appointment MRI Q [address] [address] DUE TO PT IMPLANT- IF APPT NEEDS TO BE RESCHEDULED IT MUST BE SENT TO THE FOLLOWING STAFF MESSAGE ADDRESS: IMAGING IMPLANTS [[id number]]. PACEMAKER/ICD approved to schedule by: MRI Q Comment on above: DUE TO PT IMPLANT- I F APPT NEEDS TO BE RESCHEDULED IT MUST BE SENT TO THE FOLLOWING STAFF MESSAGE ADDRESS: IMAGING IMPLANTS [[id number]]. PACEMAKER/ICD approved to schedule by: Start: 09-30-2024 End: 09-30-2024 Patient encounter procedure 09/30/2024 9:40 AM EST Appointment [facility] [place] [address] [place], [place] [id number] DUE TO PT IMPLANT- IF APPT NEEDS TO BE RESCHEDULED IT MUST BE SENT TO THE FOLLOWING STAFF MESSAGE ADDRESS: IMAGING IMPLANTS [[id number]]. PACEMAKER/ICD approved to schedule by: [facility] Radiology MRI Comment on above: DUE TO PT IMPLANT- I F APPT NEEDS TO BE RESCHEDULED IT MUST BE SENT TO THE FOLLOWING STAFF MESSAGE ADDRESS: IMAGING IMPLANTS [[id number]]. PACEMAKER/ICD approved to schedule by: Start: 09-24-2024 End: 09-24-2024 Patient encounter procedure Radiation Oncology Comment on above: NEW START RECTUM (SA R PT) NEW START RECTUM - W OULD LIKE AFTERNOONS ([facility] PT) Start: 09-21-2024 End: 09-21-2024 Follow-up encounter 09/21/2024 2:30 PM EST Visit (SP) Office Hematology/Oncology [address] [place] [address] Fred Gonzalez MD [address] [address] 2 week follow up lab Hematology/Oncology Comment on above: 2 week follow up lab Start: 09-21-2024 End: 09-21-2024 Patient encounter procedure 09/21/2024 2:15 PM EST Office Visit [facility] [address] [place] [address] 2 week follow up lab [facility] Comment on above: 2 week follow up lab Start: 09-17-2024 End: 09-17-2024 Patient encounter procedure Radiation Oncology Comment on above: NEW START, PELVIS Pelvis pt prefers af vern ([facility] PT) Start: 09-08-2024 End: 09-08-2024 Patient encounter procedure 09/08/2024 10:45 AM EDT Appointment Radiology Pet CT [address] [place] [address] Comment on above: PET Start: 09-07-2024 End: 09-07-2024 Nursing evaluation of patient and report 09/07/2024 3:00 PM EDT Nurse Visit Hematology/Oncology [address] [place] [address] Abril Gardner, RN [address] [place] [address] Chemo Education after appointment with Dr. Tenorio Hematology/Oncology Comment on above: Chemo Education afte r appointment with Dr. Tenorio Start: 09-07-2024 End: 09-07-2024 ambulatory 09/07/2024 2:00 PM EDT Visit (SP) Office Hematology/Oncology [address] [place] [address] Fred Gonzalez MD [address] [place] [address] Arrived Hematology/Oncology Comment on above: Arrived Start: 09-07-2024 End: 12-07-2024 CBC W Auto Differential panel - Blood COMPLETE BLOOD COUNT AND DIFFERENTIAL Lab Routine Rectal cancer (HCC) Expected: 09/07/2024, Expires: 12/07/2024 [facility] Work Phone: Comment on above: Expected: 09/07/2024 , Expires: 12/07/2024 Start: 09-07-2024 End: 12-07-2024 Comprehensive metabolic 2000 panel - Serum or Plasma COMPREHENSIVE METABOLIC PANEL Lab Routine Rectal cancer (HCC) Expected: 09/07/2024, Expires: 12/07/2024 [facility] Comment on above: Expected: 09/07/2024 , Expires: 12/07/2024 Start: 09-07-2024 End: 09-07-2024 Follow-up encounter 09/07/2024 2:00 PM EDT Visit (SP) Office Hematology/Oncology [address] [address] Fred Gonzalez MD [address] [place] [address] 2 week follow up on 09-07-24 per check out note Hematology/Oncology Comment on above: 2 week follow up on 09-07-24 per check out note Start: 09-07-2024 End: 09-07-2024 Patient encounter procedure 09/07/2024 1:45 PM EDT Office Visit [facility] [address] [place] [address] 2 week follow up on 09-07-24 per check out note [facility] Comment on above: 2 week follow up on 09-07-24 per check out note Start: 09-04-2024 End: 09-04-2024 Patient encounter procedure Radiation Oncology Comment on above: PRE SIM - TREATING R ECTUM W IV ORAL CONTRAST SIM - TREATING RECTU M W IV ORAL CONTRAST Start: 09-03-2024 End: 09-03-2024 Nutrition therapy 09/03/2024 3:00 PM EDT Education Nutrition Therapy [address] [place] [address] [place] [address] Rectal cancer (HCC) [C20] Nutrition Therapy Comment on above: Rectal cancer (HCC) [C20] Start: 08-29-2024 End: 08-29-2025 CT Abdomen and Pelvis W contrast IV CT ABD/PEL W IVCON Radiology Routine Rectal cancer (HCC) Expected: 08/29/2024, Expires: 08/29/2025 [facility] Comment on above: Expected: 08/29/2024 , Expires: 08/29/2025 Start: 08-29-2024 End: 08-29-2025 CT Chest W contrast IV CT CHEST W IVCON Radiology Routine Rectal cancer (HCC) Expected: 08/29/2024, Expires: 08/29/2025 [facility] Comment on above: Expected: 08/29/2024 , Expires: 08/29/2025 Start: 08-27-2024 End: 11-26-2024 aPTT in Platelet poor plasma by Coagulation assay ACTIVATED PARTIAL THROMBOPLASTIN TIME Lab Routine Rectal cancer (HCC) Bladder mass Expected: 08/27/2024 (Approximate), Expires: 11/26/2024 [facility] Comment on above: Expected: 08/27/2024 (Approximate), Expires: 11/26/2024 Start: 08-27-2024 End: 11-26-2024 Bacteria identified in Urine by Culture URINE CULTURE Microbiology Routine Rectal cancer (HCC) Bladder mass Unspecified abnormal findings in urine Expected: 08/27/2024 (Approximate), Expires: 11/26/2024 [facility] Comment on above: Expected: 08/27/2024 (Approximate), Expires: 11/26/2024 Start: 08-27-2024 End: 11-26-2024 Basic metabolic 2000 panel - Serum or Plasma BASIC METABOLIC PANEL Lab Routine Rectal cancer (HCC) Bladder mass Expected: 08/27/2024 (Approximate), Expires: 11/26/2024 [facility] Work Phone: Comment on above: Expected: 08/27/2024 (Approximate), Expires: 11/26/2024 Start: 08-27-2024 End: 11-26-2024 CBC panel - Blood by Automated count COMPLETE BLOOD COUNT Lab Routine Rectal cancer (HCC) Bladder mass Expected: 08/27/2024 (Approximate), Expires: 11/26/2024 [facility] Comment on above: Expected: 08/27/2024 (Approximate), Expires: 11/26/2024 Start: 08-27-2024 End: 11-26-2024 PT panel - Platelet poor plasma by Coagulation assay PROTHROMBIN TIME Lab Routine Rectal cancer (HCC) Bladder mass Expected: 08/27/2024 (Approximate), Expires: 11/26/2024 [facility] Comment on above: Expected: 08/27/2024 (Approximate), Expires: 11/26/2024 Start: 08-27-2024 End: 11-26-2024 Urinalysis complete panel - Urine URINALYSIS, WITH MICROSCOPIC Lab Routine Rectal cancer (HCC) Bladder mass Expected: 08/27/2024 (Approximate), Expires: 11/26/2024 [facility] Comment on above: Expected: 08/27/2024 (Approximate), Expires: 11/26/2024 Start: 08-27-2024 End: 08-27-2024 Follow-up encounter Hematology/Oncology Comment on above: 4 week follow up aft er imaging Start: 08-20-2024 End: 08-20-2024 Admission to same day surgery center 08/20/2024 7:30 AM EDT - 08/20/2024 10:49 AM EDT Surgery Admitting [address] [place] [address] [place] [address] [place] [id number] RESECTION BLADDER TUMOR TRANSURETHRAL Admitting Comment on above: RESECTION BLADDER TU MOR TRANSURETHRAL Start: 08-20-2024 End: 08-20-2024 Colonoscopy w/biopsy single/multiple COLONOSCOPY WITH BIOPSY Rectal cancer (HCC) Bladder mass 08/20/2024 7:30 AM EDT [facility] Start: 08-20-2024 End: 08-20-2024 Cystourethroscopy w/dest &/rmvl med bladder kishan RESECTION BLADDER TUMOR TRANSURETHRAL Rectal cancer (HCC) Bladder mass 08/20/2024 7:30 AM EDT [facility] Start: 08-20-2024 Subsequent hospital visit by physician 08/20/2024 7:30 AM EDT Hospital Encounter Admitting [address] [place] [address] Elliott Sanchez MD [address] [place] [address] Rectal cancer (HCC) [C20], Bladder mass [N32.89] Admitting Comment on above: Rectal cancer (HCC) [C20], Bladder mass [N32.89] Start: 08-18-2024 End: 08-18-2024 Patient encounter procedure 08/18/2024 8:30 AM EDT Office Visit Urology [address] [address] Joaquina Dacosta APRN.BDR [address] [id number] T/O ~ over the phone~ Urology Comment on above: T/O ~ over the phone ~ Start: 08-17-2024 End: 08-17-2024 Patient encounter procedure Pre Anesthesia Comment on above: pre op labs and urine Start: 08-14-2024 End: 08-14-2024 Patient encounter procedure 08/14/2024 9:45 AM EDT Appointment Radiology Pet CT [address] [place] [address] CT CAP W IV Radiology Pet CT Comment on above: CT CAP W IV Start: 07-30-2024 End: 07-30-2024 ambulatory 07/30/2024 3:00 PM EDT Visit (SP) Office Hematology/Oncology [address] [place] [address] Fred Gonzalez MD [address] [place] [address] Merritt Coyne DX: Rectal CASEE TANNER PRIOR Hematology/Oncology Comment on above: Ref by Dr Merritt kohler DX: Rectal CASEE TANNER PRIOR Start: 07-30-2024 End: 10-29-2024 Carcinoembryonic Ag [Mass/volume] in Serum or Plasma [facility] Comment on above: Expected: 07/30/2024 (Approximate), Expires: 10/29/2024 Start: 07-30-2024 End: 07-30-2025 Cobalamin (Vitamin B12) [Mass/volume] in Serum or Plasma [facility] Comment on above: Expected: 07/30/2024 (Approximate), Expires: 07/30/2025 Start: 07-30-2024 End: 07-30-2025 Ferritin [Mass/volume] in Serum or Plasma [facility] Comment on above: Expected: 07/30/2024 (Approximate), Expires: 07/30/2025 Start: 07-30-2024 End: 07-30-2025 Folate [Mass/volume] in Serum or Plasma [facility] Comment on above: Expected: 07/30/2024 (Approximate), Expires: 07/30/2025 Start: 07-30-2024 End: 07-30-2025 Iron and Iron binding capacity panel - Serum or Plasma [facility] Work Phone: Comment on above: Expected: 07/30/2024 (Approximate), Expires: 07/30/2025 Start: 07-30-2024 End: 10-29-2024 Prostate specific Ag [Mass/volume] in Serum or Plasma [facility] Comment on above: Expected: 07/30/2024 , Expires: 10/29/2024 Start: 07-30-2024 End: 07-30-2024 Patient encounter procedure 07/30/2024 1:00 PM EDT Office Visit Radiation Oncology [address] [place] [address] Noah Harrison MD [address] [place] [address] Merritt Coyne DX: Rectal CASEE MONTALVO AFTER Radiation Oncology Comment on above: Ref by Dr Merritt Cuenca ro DX: Rectal CASEE MONTALVO AFTER Start: 07-29-2024 End: 07-29-2024 ambulatory 07/29/2024 1:30 PM EDT [facility] Hematology/Oncology [address] [place], [place] [id number] Jeremie Coyne MD [address] [place] [address] EST PHONE Hematology/Oncology Comment on above: EST PHONE Start: 07-22-2024 End: 07-22-2024 ambulatory 07/22/2024 2:30 PM EDT Visit (SP) Office Hematology/Oncology [address] [place] [address] Jeremie Coyne MD [address] [place] [address] rectal cancer Hematology/Oncology Comment on above: rectal cancer Start: 07-22-2024 End: 07-22-2024 Patient encounter procedure Colorectal Surgery Comment on above: rectal caner RECTAL CANCER rectal cancer: Idalmis Earl @ 11AM and Dr. Coyne @ 2:30PM. Start: 07-12-2024 Covid-19 Vaccine ( season) Covid-19 Vaccine () [facility] Start: 07-12-2024 Covid-19 Vaccine () Covid-19 Vaccine () [facility] Start: 07-12-2024 Influenza vaccination Influenza Vacc ine (#1) [facility] Start: 07-03-2024 End: 07-03-2024 Follow-up encounter 07/03/2024 2:45 PM EDT Results Only Cardiology [address] [id number] Surgery follow-up Cardiology Comment on above: Surgery follow-up Start: 07-03-2024 End: 07-03-2024 ambulatory 07/03/2024 2:30 PM EDT Results Only Main [address] [place] [address] CBC CMP Main [place] [facility] Comment on above: CBC CMP Start: 07-03-2024 End: 07-03-2024 Patient encounter procedure Radiology Comment on above: Surgery follow-up SNF PT FULL HOUR Start: 07-01-2024 End: 09-30-2024 CBC panel - Blood by Automated count COMPLETE BLOOD COUNT Lab Routine Chest pain, unspecified type Expected: 07/01/2024, Expires: 09/30/2024 [facility] Work Phone: Comment on above: Expected: 07/01/2024 , Expires: 09/30/2024 Start: 07-01-2024 End: 09-30-2024 Comprehensive metabolic 2000 panel - Serum or Plasma COMPREHENSIVE METABOLIC PANEL Lab Routine Surgery follow-up Expected: 07/01/2024, Expires: 09/30/2024 [facility] Comment on above: Expected: 07/01/2024 , Expires: 09/30/2024 Start: 03-14-2024 Covid-19 Vaccine () Covid-19 Vaccine () [facility] Start: 11-11-2023 Advance Directive Discussion Advance Directive Discussion [facility] Start: 2023 RSV Vaccine (1 - 1-d ose 75+ series) RSV Vaccine (1 - 1-dose 75+ series) [facility] Start: 2008 RSV Vaccine (1 - 1-d ose 60+ series) RSV Vaccine (1 - 1-dose 60+ series) [facility] Start: 1998 Shingrix Vaccine (1 of 2) Cardona grix Vaccine (1 of 2) [facility] Start: 1967 Shingrix Vaccine (1 of 2) Cardona grix Vaccine (1 of 2) [facility] Start: 1967 Urine microalbumin profile DTa P,Tdap,Td Vaccine (1 - Tdap) [facility] Start: 1966 Annual PCP Team [employer] melani Disease Visit Annual PCP Team Chronic Disease Visit [facility] Start: 1966 Anxiety Screening Anxiety Screening [facility] Start: 1966 BP Controlled (<130/80) BP Controlle d (<130/80) [facility] Start: 1966 Depression Screening Depression Scre ening [facility] Start: 1966 Hepatitis C screening Hepatitis C [facility] Bacteria identified in Urine by Culture URINE CULTURE Microbiology Routine Screening for genitourinary condition 07/22/2024 10:17 AM EDT [facility] Work Phone: CT Abdomen and Pelvi s W contrast IV CT ABD/PEL W IVCON Radiology Routine Rectal cancer (HCC) 08/14/2024 1:18 PM EDT [facility] Work Phone: CT Chest W contrast IV CT CHEST W IVCON Radiology Routine Rectal cancer (HCC) 08/14/2024 1:18 PM EDT [facility] CT Guidance for radi ation treatment of Unspecified body region CT SIM PLANNING RADIATION ONCOLOGY Radiology Routine Rectal cancer (HCC) Ordered: 09/04/2024 [facility] Work Phone: Comment on above: Ordered: 09/04/2024 End: 07-01-2025 ECG COMPLETE ECG COMPLETE ECG Routine Surgery follow-up 1 Occurrences starting 07/01/2024 until 07/01/2025 [facility] Comment on above: 1 Occurrences starti ng 07/01/2024 until 07/01/2025 PET+CT Guidance for localization of tumor of Skull base to mid-thigh-- W 18F-FDG IV NM PET/CT SKULL-THIGH INITIAL Radiology Routine Rectal cancer (HCC) 09/08/2024 12:17 PM EDT [facility] Work Phone: URINALYSIS, REFLEX MICROSCOPIC URINALYSIS, REFLEX MICROSCOPIC Lab Routine Screening for genitourinary condition Ordered: 08/18/2024 [facility] Work Phone: Comment on above: Ordered: 08/18/2024 End: 07-31-2025 XR Chest PA and Lateral XR CHEST 2V FRONTAL/LAT Radiology Routine Surgery follow-up 1 Occurrences starting 07/01/2024 until 07/31/2025 [facility] Comment on above: 1 Occurrences starti ng 07/01/2024 until 07/31/2025 Immunizations Immunization Date Immunization Notes Care Provider [facility] 11-14-2023 influenza (HD-IIV4) vaccine, age 65+ yr, high dose, quadrivalent, PF (FLUZONE HIGH-DOSE) Riya Liu PA-C Work Phone: [facility] 11-14-2023 influenza virus vacc ine, unspecified formulation Masood Wilder MD Work Phone: [facility] 09-12-2022 influenza, high dose seasonal, preservative-free Riya Liu PA-C Work Phone: [facility] 08-31-2021 influenza (HD-IIV4) vaccine, age 65+ yr, high dose, quadrivalent, PF (FLUZONE HIGH-DOSE) Riya Liu PA-C Work Phone: [facility] 08-10-2020 Seasonal trivalent influenza vaccine, adjuvanted, preservative free Riya Liu PA-C Work Phone: [facility] 11-18-2017 influenza, injectabl e, quadrivalent, preservative free Riya Liu PA-C Work Phone: [facility] 07-29-2017 influenza, high dose seasonal, preservative-free Riya Liu PA-C Work Phone: [facility] 07-29-2017 pneumococcal conjuga te vaccine, 13 valent Riya Liu PA-C Work Phone: [facility] 11-19-2016 pneumococcal polysaccharide vaccine, 23 valent Riya FRANCISCO-Eloina Work Phone: [facility] Payers Date Payer Category Payer Private Health Insurance MMO MED ICARE SUPPLEMENT Member Subscriber Plan / Payer (Effective 2021-Present) Name: Brian Oneal Relation to Subscriber: Self Name: Brian Oneal Payer ID: Not on file Type: Indemnity Address: [place] [id number] 2021 Unknown 2013 Medicare 1959 Medicare [id number] 1959 Self-pay 1959 Unknown [id number] 1948 Unknown [id number] 2.16.840.1.027489.3.579.2. 647 1948 Unknown [id number] 2.16.840.1.989047.3.579.2. 593 1948 Unknown [id number] 2.16.840.1.413076.3.579.2. 593 1948 Unknown [id number] 2.16.840.1.595224.3.579.2. 593 1948 Unknown [id number] 2.16.840.1.140093.3.579.2. 593 1948 Unknown [id number] 2.16.840.1.845997.3.579.2. 593 1948 Unknown [id number] 2.16.840.1.578816.3.579.2. 593 1948 Unknown [id number] 2.16.840.1.965112.3.579.2. 593 1948 Unknown [id number] 2.16.840.1.339948.3.579.2. 593 1948 Unknown [id number] 2.16.840.1.449158.3.579.2. 593 1948 Unknown [id number] 2.16.840.1.260015.3.579.2. 593 1948 Unknown [id number] 2.16.840.1.451025.3.579.2. 593 1948 Unknown [id number] 2.16.840.1.963503.3.579.2. 593 1948 Unknown [id number] 2.16.840.1.035392.3.579.2. 593 1948 Unknown [id number] 2.16.840.1.495680.3.579.2. 196 1948 Unknown [id number] 2.16.840.1.282236.3.579.2. 196 1948 Unknown [id number] 2.16.840.1.419955.3.579.2. 196 1948 Unknown [id number] 2.16.840.1.449650.3.579.2. 196 1948 Unknown [id number] 2.16.840.1.143379.3.579.2. 196 1948 Unknown [id number] 2.16.840.1.571206.3.579.2. 196 1948 Unknown [id number] 2.16.840.1.832958.3.579.2. 196 1948 Unknown [id number] 2.16.840.1.938169.3.579.2. 196 Social History Date Type Detail Facility Tobacco smoking stat [facility] Tobacco smoking consumption unknown [facility] Start: 06-12-2024 End: 08-17-2024 History of Social function [facility] melani Work Phone: Start: 06-12-2024 End: 08-17-2024 [facility] Utilities [facility] Work Phone: Has the [employer], or [employer] threatened to shut off services in your home in past 12Mo No [facility] Work Phone: (I/We) worried kiko er (my/our) food would run out before (I/we) got money to buy more. Never true [facility] In the past 12 month s, has lack of transportation kept you from medical appointments or from getting medications? No [facility] Start: 1950 Sex assigned at Not on file [facility] Start: 07-22-2024 End: 08-17-2024 Tobacco smoking status GAIS Ex-smoker [facility] Start: 07-30-1966 History of tobacco use Current smoker [facility] Start: 07-30-1966 History of tobacco use Cigarette Smoker [facility] Start: 07-22-2024 End: 08-17-2024 Tobacco use and exposure Smokeless tobacco non-user [facility] Start: 07-30-2024 End: 08-27-2024 Alcoholic beverage intake Ex-drinker (finding) [facility] melani Medical Equipment Procedure Code Equipment Code Equipment Origin al Text Equipment Identifier Dates Clip Atriclip Gillinov-Gudelia 180d Long 35mm 25mm Internal Head - [id number] Start: 06-18-2024 Hemoblast Bellow s And 1 Ea Short 10 Cm Cannula - [id number] Start: 06-18-2024 Envelope Aigisrx R Medium Defibrillator Absorbable Antibacterial - [id number] Start: 06-18-2024 Scotts Thk1.65mm P tfe 4x.5in Cardiovascular Sterile - [id number] Start: 06-18-2024 Other Solia S 45 [id number] Start: 03-22-2022 Comment on above: Description: 1.5T ON LY Other Eleno S 53 [id number] Start: 03-22-2022 Lead Capsure Epi 8fr Steroid Eluting Silicone 35cm Pacing Is-1 Bipolar - [id number] Start: 06-18-2024 [id number] Edora 8 D r-T [id number] Start: 03-22-2022 Goals Date Patient Goal Desired Activity /State Personal health goal Functional Status Date Assessment Result Facility 06-26-2024 Are you deaf, or do you have serious difficulty hearing No 06/26/2024 1:36 PM Shannan Boothe RN No [facility] 06-26-2024 Are you blind, or do you have serious difficulty seeing, even when wearing glasses No 06/26/2024 1:36 PM Shannan Boothe RN No [facility] 06-26-2024 Do you have serious difficulty walking or climbing stairs Yes 06/26/2024 1:36 PM Shannan Boothe RN Yes [facility] 06-26-2024 Do you have difficul ty dressing or bathing Yes 06/26/2024 1:36 PM Shannan Boothe RN Yes [facility] 06-26-2024 Because of a physica l, mental, or emotional condition, do you have difficulty doing errands alone such as visiting a physician's office or shopping Yes 06/26/2024 1:36 PM Shannan Boothe RN Yes [facility] Mental Status Date Assessment Result Facility 06-26-2024 Because of a physica l, mental, or emotional condition, do you have serious difficulty concentrating, remembering, or making decisions No 06/26/2024 1:36 PM EDT Shannan Lee RN No [facility] Clinical Notes 03-23-2022 to 03-11-2025 Telephone Encounter - Heike Kelsey - 12/29/2024 4:26 PM ESTTelephone Encounter - AlvarezjoelleCady xiongica - 12/29/2024 4:26 PM Elliott Young MD - 11/25/2024 1:00 PM ESTPatient Instructions Note Date & Type Note Facility 03-11-2025 Note Cardiovascular Medic [facility] SUBJECTIVE Chief Complaint Patient presents with Coronary Artery Disease Atrial Fibrillation Brian Oneal is a 74 y.o. male here for follow-up after his recent CABG x3 and to assess his right leg wounds/swelling. HPI PMHx: CAD S/P on 06/18/2024 CABGx3 (WREN-LAD, SVG-OM1, SVG-PDA), MAZE, LAAC, Right atrial Pacer lead, chronic a.fib, CKD III, SSS s/p PPM, PVD, HLD, HTN Hx prostate CA Recently found bladder CA and rectal CA 03/11/2025 Patient is here today for a 4 month follow up. Patient states he feels good. Patient states he is mowing and doing his daily chores with out difficulty or shortness of breath. Patient state he has swelling in his right leg. Patient denies chest pain, dizziness, or palpitations. He had a lesion in his bladder removed. He is not pursing any treatment for his rectal cancer. He has not been taking ASA, he didn't think he needed to take it. 08/11/2024 Swelling and redness are much better. See picture in media. He is now seeing wound care. He is feeling well. He has started cardiac rehab. He only has dyspnea with pending over to tie his shoes. Denies c/o CP, dyspnea, orthopnea, PND, LE edema, dizziness/LH, palpitations, syncope. ' 07/29/2024 He recently underwent a CABG at [facility]. He was discharged from rehab yesterday. Post op, he did develop issues with swelling and blisters in his right lower leg around his graft harvest site. He was on an abx for a period of time from CT sx and these have been completed. He still has some swelling and redness. He has some mild chest discomfort/tightness in various positions. Denies c/o dyspnea, orthopnea, PND, dizziness/LH, palpitations, syncope. He was recently found to have a rectal cancer. He plans to undergo chemo/radiation. They also saw a bladder mass that he is following up with urology. Patient Active Problem List Diagnosis Chest pain Edema of lower extremity Syncope Cardiac device in situ Sick sinus syndrome (CMS/HCC) Severe claudication Essential (primary) hypertension Nicotine dependence Obstructive sleep apnea of child Atrial fibrillation (CMS/HCC) Pneumonia Abnormal stress test Anemia Triple vessel coronary artery disease Rectal mass ABLA (acute blood loss anemia) Atelectasis Chronic anticoagulation CKD (chronic kidney disease) stage 3, GFR 30-59 ml/min (CMS/HCC) Encounter for support and coordination of transition of care Hypervolemia Hyperlipidemia Stress hyperglycemia RVF (right ventricular failure) (CMS/HCC) Rectal cancer (CMS/HCC) Postoperative pain Obesity, Class II, BMI 35-39.9 Obesity, Class I, BMI 30-34.9 Atrial fibrillation, chronic (CMS/HCC) Pacemaker Tight chest Hypertension TEJ (obstructive sleep apnea) Coronary artery disease History of prostate cancer Malignant neoplasm of overlapping sites of bladder (CMS/HCC) Past Medical History: Diagnosis Date Abnormal ECG Arrhythmia Atrial fibrillation (CMS/HCC) Cancer (CMS/HCC) Coronary artery disease Hyperlipidemia Hypertension Sick sinus syndrome (CMS/HCC) Sinus bradycardia Sleep apnea Syncope Family History Problem Relation Name Age of Onset Coronary artery disease Mother Social History Tobacco Use Smoking status: Former Current packs/day: 1.00 Types: Cigarettes Substance Use Topics Alcohol use: Not Currently Drug use: Never Allergies Allergen Reactions Azithromycin Other Pt states he started having bloody stools after taking azithromycin ROS Constitutional: Negative for malaise/fatigue. Cardiovascular: Positive for leg swelling. OBJECTIVE Visit Vitals BP 154/80 (BP Location: Left arm, Patient Position: Sitting) Pulse 66 Ht 1.727 m (5' 8 ) Wt 97.5 kg (215 lb) SpO2 96% BMI 32.69 kg/m??? Smoking Status Former BSA 2.16 m??? Medications: Current Outpatient Medications: aspirin 81 mg EC tablet, Take 81 mg by mouth in the morning., Disp: , Rfl: atorvastatin (Lipitor) 40 mg tablet, Take 1 tablet (40 mg) by mouth in the morning., Disp: 90 tablet, Rfl: 3 metoprolol tartrate (Lopressor) 50 mg tablet, Take 50 mg by mouth two times daily., Disp: , Rfl: Physical Exam Constitutional: Appearance: Normal appearance. He is obese. HENT: Head: Normocephalic and atraumatic. Right Ear: External ear normal. Left Ear: External ear normal. Eyes: Extraocular Movements: Extraocular movements intact. Pupils: Pupils are equal, round, and reactive to light. Neck: Vascular: No carotid bruit. Cardiovascular: Rate and Rhythm: Normal rate and regular rhythm. Pulses: Normal pulses. Heart sounds: Normal heart sounds. Pulmonary: Effort: Pulmonary effort is normal. Comments: Clear upper and RLL, diminished left lower lobe Abdominal: General: Bowel sounds are normal. Palpations: Abdomen is soft. Musculoskeletal: General: Normal range of motion. Cervical back: Neck supple. (more content not included)... [facility] 03-11-2025 Note Patient is here toda y for a 4 month follow up. Patient states he feels good. Patient states he is mowing and doing his daily chores with out difficulty or shortness of breath. Patient state he has swelling in his right leg. Patient denies chest pain, dizziness, or palpitations. Review of Systems Constitutional: Negative for malaise/fatigue. Cardiovascular: Positive for leg swelling. [facility] 12-29-2024 Telephone encounter Note I contacted the patient to get his no show rescheduled. We have left multiple voicemail's to get him rescheduled and was able to get a hold of the patient. The patient said he will no be scheduling to see us due to him being upset about his situation with his dx and symptoms as a whole. He advised he will be following locally. Cady Moy [facility] 12-29-2024 Miscellaneous Notes I contacted the patient to get his no show rescheduled. We have left multiple voicemail's to get him rescheduled and was able to get a hold of the patient. The patient said he will no be scheduling to see us due to him being upset about his situation with his dx and symptoms as a whole. He advised he will be following locally. Cady Jorge Luis documented in this encounter [facility] 11-25-2024 History of Present illness Narrative Patient did not register for appointment or log in, will reach out to see if patient wishes to pursue follow-up. documented in this encounter [facility] 11-25-2024 Note HNO ID: [id number] Author: ELLIOTT SANCHEZ MD Service: ? Author Type: Physician Type: Progress Notes Filed: 11/25/2024 15:22 Note Text: Patient did not register for appointment or log in, will reach out to see if patient wishes to pursue follow-up. [facility] 11-20-2024 Note [place] Cardiology Note [facility] HPI: Brian Oneal is a 74 y.o. year old with past medical history of SSS s/p PPM, PVD, and CAD s/p CABG. He presents to cardiology clinic for routine follow up. Patient here for 3 mo follow up per Darrell Mueller CNP. 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 He completed cardiac rehab this morning. Still seeing wound care for his RLE s/p vein harvest. Denies chest pain, SOB, and palpitations. He denies any significant shortness of breath. Denies any lower extremity edema, orthopnea, or paroxysmal nocturnal dyspnea Previous HPI per. Dr. Singh 04/2022: cc; s/p PPM. He feels that [...] was initiated by the patient and conducted [id number] with use of audio-only real time telephone [...] alcohol use, lives with his significant other (more content not included)... [facility] 10-01-2024 Telephone encounter Note Called patient to schedule Nutrition follow up, patient declined at this time. He is putting all treatment and Radiation on hold until at least the first of the year. He will let us know if he wants to schedule. [facility] 10-01-2024 Miscellaneous Notes Called patient to schedule Nutrition follow up, patient declined at this time. He is putting all treatment and Radiation on hold until at least the first of the year. He will let us know if he wants to schedule. documented in this encounter [facility] 09-23-2024 Telephone encounter Note Paresh declined chemo radiation at this time. No need to arrange device check. Lara Evans RN [facility] 09-23-2024 Miscellaneous Notes Paresh declined chemo radiation at this time. No need to arrange device check. Lara Evans RN Char[place] with Darrell Mueller, [facility] office states Paresh is not pacemaker dependent. Most recent device check in Care Everywhere was done 08/27/24. Dr. Harrison said Paresh will need a post treatment device check. Nursing will arrange for this once his treatment schedule is available. Lara Evans RN documented in this encounter [facility] 09-22-2024 Telephone encounter Note Paresh stopped in today to notify Dr. Harrison that he has decided not to start chemoradiation 09/24/24 as planned. He states he needs to take care of his heart first. He said he had bypass surgery in June and hasn't completed his cardiac rehab yet. He said he want's to get back to where he used to be. He's tired of just sitting, watching TV and staring at [address] Gonzalez of his decision yesterday and is to follow up in [address] Harrison please advise on follow up. Thanks Lara Evans RN [facility] 09-22-2024 Miscellaneous Notes Paresh stopped in today to notify Dr. Harrison that he has decided not to start chemoradiation 09/24/24 as planned. He states he needs to take care of his heart first. He said he had bypass surgery in June and hasn't completed his cardiac rehab yet. He said he want's to get back to where he used to be. He's tired of just sitting, watching TV and staring at [address] Gonzalez of his decision yesterday and is to follow up in [address] Harrison please advise on follow up. Thanks Lara Evans RN documented in this encounter [facility] 09-21-2024 Instructions Fred Gonzalez MD - 09/21/2024 2:59 PM EST Follow up in 8 weeks. He refused all the cancer treatments. documented in this encounter [facility] 09-21-2024 History of Present illness Narrative PATIENT NAME: Brian Oneal [facility] NO.: [id number] ATTENDING PHYSICIAN: Fred Gonzalez MD DATE OF SERVICE: 09/21/[address] Jeremie Coyne [id number] [facility] [id number] thank you for referring Brian Oneal for an opinion regarding rectal cancer. Some of the elements of this note have been copied from my previous progress note dated 09/07/24. All the information has been reviewed carefully. CHIEF COMPLAINT: Rectal cancer HPI: Brian Oneal is a 74 year old year old male referred to us for rectal cancer. PMH of CABG, A fib, TEJ, CKD, h/o prostate cancer s/p radiation to the prostate. The patient's course began when he developed atrial fibrillation the end of March 2024. The patient was admitted from June 11, 2024 through June 26, [facility]. He was initially admitted to [facility] on June 04, 2024 for planned heart catheterization. This showed significant coronary artery disease CABG was recommended. During the hospitalization he had bloody stool since Eliquis was started in April and GI was consulted. 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 Colonoscopy on June 05, 2024 showed scattered sessile polyps in the ascending colon and hepatic flexure, inverted diverticula versus polyp in the transverse colon, scattered semisessile polyp in the descending colon and sigmoid colon, and a rectal mass measuring 2.5 cm suspicious for malignancy. The patient was taken to the operating room on June 18, 2024 for CABG x 3. Maze procedure RUSS clip and right atrial pacer lead performed Imaging has included: CT scan of the chest with contrast June 05, 2024 and reviewed by [facility] radiology showing indeterminate subcentimeter pulmonary nodules. No prior imaging for review. Interstitial lung abnormalities noted. Clinical and PFT correlation recommended. CT scan abdomen and pelvis with contrast June 05, 2024 and reviewed by [facility] radiology shows a 1.5 cm sessile polypoid bladder mass concerning for neoplasm. The rectal mass seen on MRI is not identifiable. MRI of the pelvis without contrast June 09, 2024 reviewed by [facility] radiology shows a 2.4 cm mass penetrating less than 1 mm beyond muscularis propria probably T3a in the low rectum with probable extension into the mesorectal fat abutting the internal sphincter without lymph node involvement. Prostatic brachytherapy seeds are noted. 1 point centimeter anterior bladder wall lesion with restricted diffusion. Sigmoidoscopy was performed showing a rectal mass 3 to 4 cm from the anal verge approximately one third the circumference of the left anterior position. The tumor is fixed at the top of the sphincter. Had cystoscopy on 07/22/24, 2 tumors, 2-5 cm, posterior wall and dome. Visit 08/27/24: - Underwent TURBT on 08/20/24 and a colonoscopy. - Urinary bladder, dome, transurethral resection: - High-grade urothelial carcinoma, widely invasive of lamina propria (see comment). - No muscularis propria identified. J. Urinary bladder, posterior wall, transurethral resection: - High-grade papillary urothelial carcinoma, invasive of lamina propria (see comment). - Muscularis propria is present and uninvolved by tumor - C/o pain while urination - Scheduled for simulation on 09/04/24. - Denies bowel problems. Visit 09/07/24: - He likes to start radiation on Sep 21. - Scheduled for intravesical BCG on Sep 28. He likes to hold off on these treatments. - C/o bladder incontinence. - Unable to purchase Myrbetriq - Advised him to cancel MRI pelvis scheduled next month. Visit 09/21/24: - PET scan on 09/08/24 showed FDG avid rectal tumor. - He declines the chemo and radiation treatments - He just wants to do cardiac rehab. - C/o urinary incontinence. Current Outpatient Medications Medication Sig atorvastatin calcium (ATORVASTATIN ORAL) Take 10 mg by mouth once daily. prochlorperazine (COMPAZINE) 10 mg tablet Take 1 tablet by mouth every 6 hours as needed. ondansetron (ZOFRAN) 8 mg tablet Take 1 tablet by mouth every 8 hours as needed for nausea/vomiting. capecitabine (XELODA) 500 mg tablet Take 3 tablets (1,500 mg) by mouth two times a day Saturday through Saturday ONLY on the days of radiation (Take with 150 mg tablet for Total Dosage 1650 mg) capecitabine (XELODA) 150 mg tablet Take 1 tablet (150 mg) by mouth two times a day Saturday through Saturday ONLY on the days of radiation (Take with 500 mg tablet for Total Dosage 1650 mg) iv contrast (will be provided with radiology test) MRI Rectum Inject, intravenously, once for 1 dose. No IV access, insert saline lock prior to the beginning of sedation, infusion, injection of imaging exam. Discontinue saline lock post exam. If Pt has a central line or IVAD, may access for administration according to line specific nursing protocol. Once exam is complete flush line and de-access according to line specific nursing protocol in the MR contrast administration guidelines link. (Patient not taking: Reported on 08/17/2024) enteric contrast (will be provided with radiology test) MRI RECTUM WO/W. Administer, As Directed One Time Only, via Oral, Rectal, both Oral and Rectal, Enteric Tube, Stoma or Indwelling Catheter, Enteric Contrast as designated per enteric contrast guidelines (Patient not taking: Reported on 08/17/2024) metoprolol tartrate, short acting, (LOPRESSOR) 25 mg tablet Take 1 tablet by mouth every 12 hours. heparin 5,000 unit/mL injection Inject 1 mL subcutaneously every 12 hours. For DVT prophylaxis until ambulatory No current facility-administered medications for this visit. ALLERGIES Allergen Reactions Azithromycin Other: See Comments, GI Upset Pt states he started having bloody stools after taking azithromycin PAST MEDICAL HISTORY Diagnosis Date A-fib (HCC) CAD (coronary artery disease) CKD (chronic kidney disease) HTN (hypertension) TEJ (obstructive sleep apnea) Pacemaker Prostate cancer (HCC) Rectal cancer (HCC) Sick sinus syndrome (HCC) PAST SURGICAL HISTORY Procedure Laterality Date COLONOSCOPY 06/05/2024 PAST SURGICAL HISTORY OF left heart cath PAST SURGICAL HISTORY OF 06/18/2024 06/18/2024 CABGx3 (WREN-LAD, SVG-OM1, SVG-PDA), MAZE, LAAC, Right atrial Pacer lead FAMILY HISTORY Problem Relation Age of Onset Breast Cancer Mother Lung Cancer Sister Pancreatic Cancer Sister Cancer Sister poss Pancreatic cancer Thyroid Cancer Sister Social History Tobacco Use Smoking status: Former Average packs/day: 1 pack/day for 55.3 years (55.3 ttl pk-yrs) Types: Cigarettes Start date: 07/30/1966 Smokeless tobacco: Never Vaping Use Vaping status: Never Used Substance Use Topics Alcohol use: Not Currently Drug use: Not Currently REVIEW OF SYSTEMS GENERAL: No weight loss, malaise or fevers. No night sweats. HEENT: Negative for headaches, No changes in hearing or vision, no nose bleeds or other nasal problems. RESPIRATORY: Negative for cough, wheezing and shortness of breath CARDIOVASCULAR: Negative for chest pain, leg swelling and palpitations GI: Negative for abdominal discomfort, blood in stools or black stools and change in bowel habits : Negative for dysuria, frequency and incontinence MUSCULOSKELETAL: Negative for joint pain or swelling, back pain, and muscle pain. SKIN: Negative for lesions, rash, and itching. HEMATOLOGY/LYMPHOLOGY Negative for prolonged bleeding, bruising easily, and swollen nodes. NEURO: Negative for numbness or tingling of hands/feet. No weakness. PHYSICAL EXAMINATION: There were no vitals taken for this visit. There were no vitals taken for this visit. Last 3 Encounter Wt Readings: Date: Wt: 07/22/2024 95.2 kg (209 lb 14.1 oz) 07/22/2024 94.8 kg (209 lb) 07/03/2024 99.7 kg (219 lb 14.4 oz) General appearance:ECOG PERFORMANCE STATUS: 1- Restricted in physically strenuous activity. Carries out light duty. Patient in NAD. Skin: Skin color, texture, turgor normal. No rashes or lesions. Eyes: Anicteric sclera. Pupils are equally round and reactive to light. Extraocular movements are intact. Breast: No palpable breast masses. No nipple change or discharge. Lymph Nodes: No cervical, supraclavicular, axillary or inguinal adenopathy. Oropharynx: Lips, mucosa, and tongue normal. Back: No pain to percussion. Negative SLR test Lungs clear to auscultation, No wheezing or rhonchi Heart: RRR without murmur, gallop, or rubs. Abdomen soft, non-tender. No masses, organomegaly Extremities: No deformities. No edema Neuro: Gait and speech normal. Reflexes normal and symmetric. Muscular strength intact. Sensation grossly intact. Rectal: Deferred : Deferred LABS: Glucose (mg/dL) Date Value 09/07/2024 96 Potassium (mmol/L) Date Value 09/07/2024 5.0 Sodium (mmol/L) Date Value 09/07/2024 138 Chloride (mmol/L) Date Value 09/07/2024 102 CO2 (mmol/L) Date Value 09/07/2024 26 Creatinine (mg/dL) Date Value 09/07/2024 1.35 BUN (mg/dL) Date Value 09/07/2024 23 Anion Gap (mmol/L) Date Value 09/07/2024 10 Calcium, Total (mg/dL) Date Value 09/07/2024 9.1 Protein, Total (g/dL) Date Value 09/07/2024 6.4 Albumin (g/dL) Date Value 09/07/2024 4.0 Bilirubin, Total (mg/dL) Date Value 09/07/2024 0.5 Alkaline Phosphatase (U/L) Date Value 09/07/2024 49 AST (U/L) Date Value 09/07/2024 11 ALT (U/L) Date Value 09/07/2024 8 WBC Date Value Ref Range Status 09/07/2024 7.87 3.70 - 11.00 k/uL Final RBC Date Value Ref Range Status 09/07/2024 4.91 4.20 - 6.00 m/uL Final Hemoglobin Date Value Ref Range Status 09/07/2024 13.4 13.0 - 17.0 g/dL Final Hematocrit Date Value Ref Range Status 09/07/2024 43.6 39.0 - 51.0 % Final MCV Date Value Ref Range Status 09/07/2024 88.8 80.0 - 100.0 fL Final MCH Date Value Ref Range Status 09/07/2024 27.3 26.0 - 34.0 pg Final MCHC Date Value Ref Range Status 09/07/2024 30.7 30.5 - 36.0 g/dL Final RDW-CV Date Value Ref Range Status 09/07/2024 14.7 11.5 - 15.0 % Final Platelet Count Date Value Ref Range Status 09/07/2024 209 150 - 400 k/uL Final MPV Date Value Ref Range Status 09/07/2024 9.1 9.0 - 12.7 fL Final Abs Neut Date Value Ref Range Status 09/07/2024 5.58 1.45 - 7.50 k/uL Final Lymphocytes % Date Value Ref Range Status 09/07/2024 17.8 % Final Abs Lymph Date Value Ref Range Status 09/07/2024 1.40 1.00 - 4.00 k/uL Final Monocytes % Date Value Ref Range Status 09/07/2024 8.5 % Final Abs Trimble Date Value Ref Range Status 09/07/2024 0.67 <0.87 k/uL Final Abs Eosin Date Value Ref Range Status 09/07/2024 0.14 <0.46 k/uL Final Basophils % Date Value Ref Range Status 09/07/2024 0.3 % Final Abs Baso Date Value Ref Range Status 09/07/2024 <0.03 <0.11 k/uL Final PATH: Sigmoidoscopy showed rectal mass 3 to 4 cm from the anal verge occupying one third of the circumference fixed to the top of the sphincter. Rectal mass biopsy showed invasive moderately differentiated adenocarcinoma , MSI intact FINAL DIAGNOSIS A. Ascending colon, polypectomy: - Fragments of tubular adenoma. B. Hepatic flexure, polypectomy: - Fragments of tubular adenoma. C. Transverse colon, biopsy: - Focally active colitis; no granulomas or dysplasia. D. Transverse colon, polypectomy: - Tubular adenoma. E. Descending colon, polypectomy: - Colonic mucosa with mild architectural distortion. F. Descending colon, polypectomy: - Fragments of tubular adenoma. - Fragments of hyperplastic polyp. G. Sigmoid colon, polypectomy: - Fragments of tubular adenoma. H. Rectum, polypectomy: - Hyperplastic polyp. I. Urinary bladder, dome, transurethral resection: - High-grade urothelial carcinoma, widely invasive of lamina propria (see comment). - No muscularis propria identified. J. Urinary bladder, posterior wall, transurethral resection: - High-grade papillary urothelial carcinoma, invasive of lamina propria (see comment). - Muscularis propria is present and uninvolved by tumor IMAGING: MRI rectum (07/24/24)- 2.4 cm low rectal neoplasm with probable extension into the mesorectal fat. Anterior bladder wall lesion. Further evaluation with cystoscopy recommended. Stage: T3a N0 MRF: Clear (tumor margin >2 mm from MRF) Sphincter involvement: Abutment of the internal sphincter Suspicious extra mesorectal lymph nodes: No. EMVI: No. He has received prior pelvic radiation for prostate cancer. CT Chest (06/05/24)- Study performed for preoperative planning purposes. *Noncalcified nodule in the left lower lobe measuring 0.9 cm. Follow-up chest CT recommended in 3 months. *Cystic lesion in the pancreatic body measuring 1.2 cm. Further characterization with MRI recommended CT a/p (06/05/24)- No acute findings within the abdomen or pelvis. *0.8 cm hypoattenuating lesion within the pancreatic head likely cystic in nature, nonemergent MRCP can be considered for further evaluation. ASSESSMENT AND PLAN: Brian Oneal is a 74 year old year old male referred to us for rectal cancer and bladder mass. H/o of CABG, A fib, TEJ, CKD, h/o prostate cancer s/p radiation to the prostate. PS 1 MRI rectum (07/24/24)- 2.4 cm low rectal neoplasm with probable extension into the mesorectal fat. Anterior bladder wall lesion. Further evaluation with cystoscopy recommended. Stage: T3a N0. Stage IIA. MRF: Clear (tumor margin >2 mm from MRF) Sphincter involvement: Abutment of the internal sphincter Suspicious extra mesorectal lymph nodes: No. EMVI: No. He has received prior pelvic radiation for prostate cancer. Sigmoidoscopy showed rectal mass 3 to 4 cm from the anal verge occupying one third of the circumference fixed to the top of the sphincter. Rectal mass biopsy showed invasive moderately differentiated adenocarcinoma , MSI intact He was seen [facility]. [facility]. His recommendations were to do a repeat cystoscopy requiring TURBT in the coming weeks. - Underwent transurethral resection of the bladder tumor on 08/20/2024 by . A complete resection of all visible lesions was performed down to the deep layers of the muscularis propria. - Final pathology showed high-grade papillary urothelial carcinoma with invasion of the lamina propria. muscularis propria is present and uninvolved by the tumor. - CT chest on 08/14/2024 showed a several 4 mm or less bilateral pulmonary nodules stable and a new small to moderate size left-sided pleural effusion. - CT abdomen pelvis on 08/14/24 showed a left lateral rectal wall thickening and bladder wall thickening and no evidence of metastasis. - We will do concurrent chemo RT for the rectal cancer and intravesical BCG treatments for the bladder cancer as per the [facility] physician recommendations. - He refused bladder and rectal cancer surgeries. PLAN: - PET scan on 09/08/24 showed FDG avid rectal tumor. - He is refusing chemotherapy and radiation therapy treatments for the rectal cancer. - Refused intravesical BCG treatments. - He is refusing all kinds of cancer treatments at this time. - He wants to do only cardiac rehab for now which is for 5 to 6 weeks - All his questions answered in detail - Follow-up in [address] Jeremie Coyne [address] [facility] [id number] thank you for allowing me to participate in [facility], if there are any questions or concerns please do not hesitate to contact me at the number below. I spent a total of 20 minutes on the date of the service which included preparing to see the patient, [id number] patient care, completing clinical documentation, obtaining and/or reviewing separately obtained history, performing a medically appropriate examination, counseling and educating the patient/family/caregiver, ordering medications, tests, or procedures, communicating with other HCPs (not separately reported), independently interpreting results (not separately reported), communicating results to the patient/family/caregiver, and care coordination (not separately reported). Fred Gonzalez MD. Hematology/Medical Oncology [facility] [phone] CC: documented in this encounter [facility] 09-21-2024 Note [facility] 09-18-2024 Telephone encounter Note I notified Paresh that his new start appointment has been rescheduled from 09/21/24 to 09/24/24 with an arrival time of 2:15. I explained that we need a little more time for treatment planning. He is aware not to start his Xeloda until 09/24/24 also. He is thankful for the call and denies questions at this time. Lara Evans RN [facility] 09-18-2024 Miscellaneous Notes I notified Paresh that his new start appointment has been rescheduled from 09/21/24 to 09/24/24 with an arrival time of 2:15. I explained that we need a little more time for treatment planning. He is aware not to start his Xeloda until 09/24/24 also. He is thankful for the call and denies questions at this time. Lara Evans RN documented in this encounter [facility] 09-08-2024 History of Present illness Narrative Radiology Service Progress Note DATE OF SERVICE: September 08, 2024 TIME: 10:51 AM PATIENT WEIGHT: 210.4 LBS PATIENT IDENTITY VERIFICATION COMPLETED USING TWO (2) STANDARD IDENTIFIERS: Name and Date of confirmed by patient verbally. FALL SCREENING: Has the patient had 2 falls in the last year or 1 fall with injury or currently using an Ambulatory Assistive Device (Walker, Cane, Wheelchair, Crutches, etc.)? No PATIENT GENDER DATA: Male ALLERGIES: Reviewed and unchanged CONTRAST ALLERGY: No GLUCOSE 104 EXAM: PET IV SITE: Ambulatory: A peripheral IV was started in the Right wrist with a Angio cath: 22 gauge. IV SITE APPEARANCE: Clean,Dry and Intact SIGNATURE: Lizzette Vazquez RN PATIENT NAME: Brian Oneal DATE: September 08, 2024 TIME: 10:51 AM RADIOLOGY SERVICE PROGRESS NOTE SERVICE DATE: 09/08/2024 SERVICE TIME: 11:56 AM PATIENT IDENTITY VERIFICATION COMPLETED USING TWO (2) STANDARD IDENTIFIERS: Name and Date of confirmed by patient verbally FALL SCREENING: Has the patient had 2 falls in the last year or 1 fall with injury or currently using an Ambulatory Assistive Device (Walker, Cane, Wheelchair, Crutches, etc.)? No PATIENT GENDER DATA: .male ALLERGIES: Reviewed and unchanged MEDICATIONS REVIEWED: Yes PATIENT RELEVANT IMPLANT DATA REVIEWED: Not Applicable PATIENT PRESENTS WITH AN IMPLANTABLE OR ATTACHED LAST GREASER: No IV SITE: RT wrist POST EXAM PIV STATUS: Discontinued PROCEDURE TYPE: NM INJECT: PET/CT BODY SCAN. 14 mCi F18 FDG. No other medications given.. ADMINISTRATION TIME: 1050 PATIENT DISCHARGED TO: Ambulatory patient, left [place] department area. A Diagnostic radioactive procedure has taken place, with no further precautions necessary other than routine body substance precautions. More information regarding radiation safety can be found using this link: [email or web address] SIGNATURE: RT Stephane(R) PATIENT NAME: Brian Oneal DATE: September 08, 2024 TIME: 11:56 AM PAGER/CONTACT #: documented in this encounter [facility] 09-08-2024 Note [facility] 09-08-2024 Note [facility] 09-07-2024 Telephone encounter Note Closing encounter as this is on hold. Shirley Bernabe [facility] 09-07-2024 Miscellaneous Notes Closing encounter as this is on hold. Shirley Bernabe Hold please, Dr Montalvo just said that he spoke with the patient and he doesn't want to do BCG treatments at this time. Abril Gardner RN Pt has orders in [place] from Dr Sanchez to begin BCG treatments on 09/28. These need to be scheduled please. Thanks Abril Gardner RN documented in this encounter [facility] 09-07-2024 Note [facility] 09-07-2024 History of Present illness Narrative ORAL ANTI-CANCER AGENTS EDUCATION patient here today for oral medication education of capecitabine for Colon / Rectal Cancer Anticipated/Scheduled start date: 09/21/24 READINESS TO LEARN Cognitive Ability: Alert and oriented Motivation to Learn: Interested Family Support: High - Very involved in pt care Instruction Provided to: Patient Patient learns best by: Multiple Methods Factors affecting learning: None Physical limitation affecting learning: None LAMBERT ASSESSMENT: 1.) Verified that patient knows that the oral agents are for cancer and are taken by mouth. Yes 2.) Medication review completed during visit. Yes 3.) Patient is able to swallow pills. Yes 4.) Patient is able to read the drug label/information. Yes 5.) Patient is able to open the medication bottles and packages. Yes 6.) Has patient taken other pills for cancer? No 7.) Is patient experiencing any symptoms that would affect their ability to keep down pills, for example nausea or vomiting? No 8.) Verified that patient understands prescription delivery, benefit investigation and refill process. Yes Filling through [facility] pharmacy $0 copay DRUG-SPECIFIC EDUCATION: 1.) Verified patient knows the drug name. Yes 2.) Verified patient understands the dose and schedule of oral anti cancer agent. Yes 3.) Verified patient knows what to do if a medication dose is missed. Yes 4.) Verified patient understands where to store the drug. Yes 5.) Verified patient understands potential side effects and how to manage them. Yes 6.)Verified patient understands handling precautions of oral anti cancer agent. Yes 7.) Verified patient was given written instructions and understands when and whom to call with questions. Yes 8.) Verified patient understands where and how to return drug. Yes 9.) Verified patient received drug specific adult education handout and neutropenic wallet card Yes EVALUATE: The patient demonstrated an understanding of all the above education using the teach-back method. Yes Instructed to call us with any questions, concerns, and/or unresolved symptoms. Will continue to follow up and provide reinforcement of teaching topics as needed. Pt has BCG ordered as well from Dr Sanchez. Pt states he does not wish to start this at this time as he has too many things going on right now. Dr Gonzalez is aware of this and is going to reach out to Dr Sanchez regarding this. Pt aware that he can not take protonix while on capecitabine. Pt states he hasn't been taking it recently and it won't be a problem for him to not take it. Pt's sig other is scheduled to have a pacer or defibrillator placed on September 16, so he needs to help care for her for a few days after this, and he needs to sing in denominational on September 20 for a hoahaoism. He would like to hold off on starting radiation and chemo medication until 09/21. Abril Gardner, RN [facility] Department of Pharmacy Oncology Pharmacy Medication Education Patient Name: Brian Oneal Primary Oncologist: Lisa Diagnosis: rectal cancer Brian Oneal is a 74 year old patient here today for medication education for PO Capecitabine (Xeloda). Drug Interactions: Clinically significant interactions with chemotherapy, immunosuppression, or other standard of care treatment plan medications anticipated: No. There are no pertinent drug interactions identified. Patient was counseled accordingly. Allergies: Patient confirmed allergies documented in Epic are correct: Yes Was medication education provided?: Yes Medication Education: Administration and schedule: Capecitabine 150 mg (1 tablet) and capecitabine 500mg (3 tablets) PO BID on days of radiation only Potential side effects discussed: abdominal discomfort, anemia, appetite changes, bowel habit changes, electrolyte disturbances, fatigue, hand-foot syndrome, infection, mouth hygiene, mucositis, nausea/vomitting, neutropenia PO chemo: Verified patient understands where to store the drug. Yes Verified that patient understands prescription delivery, benefit investigation and refill process. Yes Was medication reconciliation performed?: Yes Changes made to medication list? Yes The following medications were updated within the home medication list: Medications DISCONTINUED from home medication list: All but metoprolol, atorvastatin, capecitabine, ondansetron, prochlorperazine Current Outpatient Medications Medication Sig atorvastatin calcium (ATORVASTATIN ORAL) Take 10 mg by mouth once daily. prochlorperazine (COMPAZINE) 10 mg tablet Take 1 tablet by mouth every 6 hours as needed. ondansetron (ZOFRAN) 8 mg tablet Take 1 tablet by mouth every 8 hours as needed for nausea/vomiting. capecitabine (XELODA) 500 mg tablet Take 3 tablets (1,500 mg) by mouth two times a day Saturday through Saturday ONLY on the days of radiation (Take with 150 mg tablet for Total Dosage 1650 mg) capecitabine (XELODA) 150 mg tablet Take 1 tablet (150 mg) by mouth two times a day Saturday through Saturday ONLY on the days of radiation (Take with 500 mg tablet for Total Dosage 1650 mg) iv contrast (will be provided with radiology test) MRI Rectum Inject, intravenously, once for 1 dose. No IV access, insert saline lock prior to the beginning of sedation, infusion, injection of imaging exam. Discontinue saline lock post exam. If Pt has a central line or IVAD, may access for administration according to line specific nursing protocol. Once exam is complete flush line and de-access according to line specific nursing protocol in the MR contrast administration guidelines link. (Patient not taking: Reported on 08/17/2024) enteric contrast (will be provided with radiology test) MRI RECTUM WO/W. Administer, As Directed One Time Only, via Oral, Rectal, both Oral and Rectal, Enteric Tube, Stoma or Indwelling Catheter, Enteric Contrast as designated per enteric contrast guidelines (Patient not taking: Reported on 08/17/2024) metoprolol tartrate, short acting, (LOPRESSOR) 25 mg tablet Take 1 tablet by mouth every 12 hours. heparin 5,000 unit/mL injection Inject 1 mL subcutaneously every 12 hours. For DVT prophylaxis until ambulatory No current facility-administered medications for this visit. - Chemotherapy education was provided by a pharmacist NO - Thank you for allowing us to participate in the care of this patient. I spent 30 time (15 minute increments) with the patient Ching Stone RPh Pager: documented in this encounter [facility] 09-07-2024 Note [facility] 09-07-2024 Telephone encounter Note Hold please, Dr Montalvo just said that he spoke with the patient and he doesn't want to do BCG treatments at this time. Abril Gardner RN [facility] Work Phone: 09-07-2024 Instructions Fred Gonzalez MD - 09/07/2024 2:03 PM EDT Start xeloda on the start day of the radiation Pt likes to hold off on the intravesical BCG treatments F/u in 2 weeks documented in this encounter [facility] 09-07-2024 History of Present illness Narrative PATIENT NAME: Brian Oneal [facility] NO.: [id number] ATTENDING PHYSICIAN: Fred Gonzalez MD DATE OF SERVICE: 09/07/[address] Jeremie Coyne [id number] [facility] [id number] thank you for referring Brian Oneal for an opinion regarding rectal cancer. Some of the elements of this note have been copied from my previous progress note dated 08/27/24. All the information has been reviewed carefully. CHIEF COMPLAINT: Rectal cancer HPI: Brian Oneal is a 74 year old year old male referred to us for rectal cancer. PMH of CABG, A fib, TEJ, CKD, h/o prostate cancer s/p radiation to the prostate. The patient's course began when he developed atrial fibrillation the end of March 2024. The patient was admitted from June 11, 2024 through June 26, 20[facility] at [facility]. He was initially admitted to [facility] on June 04, 2024 for planned heart catheterization. This showed significant coronary artery disease CABG was recommended. During the hospitalization he had bloody stool since Eliquis was started in April and GI was consulted. 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 Colonoscopy on June 05, 2024 showed scattered sessile polyps in the ascending colon and hepatic flexure, inverted diverticula versus polyp in the transverse colon, scattered semisessile polyp in the descending colon and sigmoid colon, and a rectal mass measuring 2.5 cm suspicious for malignancy. The patient was taken to the operating room on June 18, 2024 for CABG x 3. Maze procedure RUSS clip and right atrial pacer lead performed Imaging has included: CT scan of the chest with contrast June 05, 2024 and reviewed by [facility] radiology showing indeterminate subcentimeter pulmonary nodules. No prior imaging for review. Interstitial lung abnormalities noted. Clinical and PFT correlation recommended. CT scan abdomen and pelvis with contrast June 05, 2024 and reviewed by [facility] radiology shows a 1.5 cm sessile polypoid bladder mass concerning for neoplasm. The rectal mass seen on MRI is not identifiable. MRI of the pelvis without contrast June 09, 2024 reviewed by [facility] radiology shows a 2.4 cm mass penetrating less than 1 mm beyond muscularis propria probably T3a in the low rectum with probable extension into the mesorectal fat abutting the internal sphincter without lymph node involvement. Prostatic brachytherapy seeds are noted. 1 point centimeter anterior bladder wall lesion with restricted diffusion. Sigmoidoscopy was performed showing a rectal mass 3 to 4 cm from the anal verge approximately one third the circumference of the left anterior position. The tumor is fixed at the top of the sphincter. Had cystoscopy on 07/22/24, 2 tumors, 2-5 cm, posterior wall and dome. Visit 08/27/24: - Underwent TURBT on 08/20/24 and a colonoscopy. - Urinary bladder, dome, transurethral resection: - High-grade urothelial carcinoma, widely invasive of lamina propria (see comment). - No muscularis propria identified. J. Urinary bladder, posterior wall, transurethral resection: - High-grade papillary urothelial carcinoma, invasive of lamina propria (see comment). - Muscularis propria is present and uninvolved by tumor - C/o pain while urination - Scheduled for simulation on 09/04/24. - Denies bowel problems. Visit 09/07/24: - He likes to start radiation on Sep 21. - Scheduled for intravesical BCG on Sep 28. He likes to hold off on these treatments. - C/o bladder incontinence. - Unable to purchase Myrbetriq - Advised him to cancel MRI pelvis scheduled next month. Current Outpatient Medications Medication Sig atorvastatin calcium (ATORVASTATIN ORAL) Take by mouth once daily. mirabegron (MYRBETRIQ) 25 mg Tb24 Take 1 tablet by mouth once daily. prochlorperazine (COMPAZINE) 10 mg tablet Take 1 tablet by mouth every 6 hours as needed. ondansetron (ZOFRAN) 8 mg tablet Take 1 tablet by mouth every 8 hours as needed for nausea/vomiting. capecitabine (XELODA) 500 mg tablet Take 3 tablets (1,500 mg) by mouth two times a day Saturday through Saturday ONLY on the days of radiation (Take with 150 mg tablet for Total Dosage 1650 mg) capecitabine (XELODA) 150 mg tablet Take 1 tablet (150 mg) by mouth two times a day Saturday through Saturday ONLY on the days of radiation (Take with 500 mg tablet for Total Dosage 1650 mg) iv contrast (will be provided with radiology test) MRI Rectum Inject, intravenously, once for 1 dose. No IV access, insert saline lock prior to the beginning of sedation, infusion, injection of imaging exam. Discontinue saline lock post exam. If Pt has a central line or IVAD, may access for administration according to line specific nursing protocol. Once exam is complete flush line and de-access according to line specific nursing protocol in the MR contrast administration guidelines link. (Patient not taking: Reported on 08/17/2024) enteric contrast (will be provided with radiology test) MRI RECTUM WO/W. Administer, As Directed One Time Only, via Oral, Rectal, both Oral and Rectal, Enteric Tube, Stoma or Indwelling Catheter, Enteric Contrast as designated per enteric contrast guidelines (Patient not taking: Reported on 08/17/2024) torsemide (DEMADEX) 20 mg tablet Take 1 tablet by mouth once daily. Rx called to SNF (Patient not taking: Reported on 08/17/2024) potassium chloride (KLOR-CON 10) 10 mEq tablet Take 1 tablet by mouth once daily. Rx called to SNF (Patient not taking: Reported on 08/17/2024) cholecalciferol (VITAMIN D) 1,000 unit tab tablet Take 1,000 Units by mouth once daily. loratadine (CLARITIN) 10 mg tablet Take 10 mg by mouth once daily. acetaminophen (TYLENOL EXTRA STRENGTH) 500 mg tablet Take 1,000 mg by mouth every 8 hours as needed. (Patient not taking: Reported on 08/17/2024) metoprolol tartrate, short acting, (LOPRESSOR) 25 mg tablet Take 1 tablet by mouth every 12 hours. aspirin 81 mg chewable tablet Take 1 tablet by mouth once daily. bisacodyl (DULCOLAX) 10 mg supp 1 Suppository by RECTAL route once daily as needed for constipation. (Patient not taking: Reported on 08/17/2024) heparin 5,000 unit/mL injection Inject 1 mL subcutaneously every 12 hours. For DVT prophylaxis until ambulatory pantoprazole DR (PROTONIX) 20 mg tablet Take 1 tablet by mouth daily at 6 am for 14 days. (Patient not taking: Reported on 09/07/2024) polyethylene glycol 3350 17 gram packet Take 1 Packet by mouth once daily as needed for constipation. Dissolve dose in 4 - 8 ounces of liquid and take as directed. gabapentin (NEURONTIN) 600 mg tablet Take 0.5 tablets by mouth every 12 hours for 30 days. (Patient not taking: Reported on 08/17/2024) No current facility-administered medications for this visit. ALLERGIES Allergen Reactions Azithromycin Other: See Comments, GI Upset Pt states he started having bloody stools after taking azithromycin PAST MEDICAL HISTORY Diagnosis Date A-fib (HCC) CAD (coronary artery disease) CKD (chronic kidney disease) HTN (hypertension) TEJ (obstructive sleep apnea) Pacemaker Prostate cancer (HCC) Rectal cancer (HCC) Sick sinus syndrome (HCC) PAST SURGICAL HISTORY Procedure Laterality Date COLONOSCOPY 06/05/2024 PAST SURGICAL HISTORY OF left heart cath PAST SURGICAL HISTORY OF 06/18/2024 06/18/2024 CABGx3 (WREN-LAD, SVG-OM1, SVG-PDA), MAZE, LAAC, Right atrial Pacer lead FAMILY HISTORY Problem Relation Age of Onset Breast Cancer Mother Lung Cancer Sister Pancreatic Cancer Sister Cancer Sister poss Pancreatic cancer Thyroid Cancer Sister Social History Tobacco Use Smoking status: Former Average packs/day: 1 pack/day for 55.3 years (55.3 ttl pk-yrs) Types: Cigarettes Start date: 07/30/1966 Smokeless tobacco: Never Vaping Use Vaping status: Never Used Substance Use Topics Alcohol use: Not Currently Drug use: Not Currently REVIEW OF SYSTEMS GENERAL: No weight loss, malaise or fevers. No night sweats. HEENT: Negative for headaches, No changes in hearing or vision, no nose bleeds or other nasal problems. RESPIRATORY: Negative for cough, wheezing and shortness of breath CARDIOVASCULAR: Negative for chest pain, leg swelling and palpitations GI: Negative for abdominal discomfort, blood in stools or black stools and change in bowel habits : Negative for dysuria, frequency and incontinence MUSCULOSKELETAL: Negative for joint pain or swelling, back pain, and muscle pain. SKIN: Negative for lesions, rash, and itching. HEMATOLOGY/LYMPHOLOGY Negative for prolonged bleeding, bruising easily, and swollen nodes. NEURO: Negative for numbness or tingling of hands/feet. No weakness. PHYSICAL EXAMINATION: BP 162/98 Pulse 78 Temp 36.2 C (97.2 F) (Temporal) Resp 16 Ht 167.6 cm (5' 5.98 ) Wt 98.9 kg (218 lb 0.6 oz) SpO2 94% BMI 35.21 kg/m There were no vitals taken for this visit. Last 3 Encounter Wt Readings: Date: Wt: 07/22/2024 95.2 kg (209 lb 14.1 oz) 07/22/2024 94.8 kg (209 lb) 07/03/2024 99.7 kg (219 lb 14.4 oz) General appearance:ECOG PERFORMANCE STATUS: 1- Restricted in physically strenuous activity. Carries out light duty. Patient in NAD. Skin: Skin color, texture, turgor normal. No rashes or lesions. Eyes: Anicteric sclera. Pupils are equally round and reactive to light. Extraocular movements are intact. Breast: No palpable breast masses. No nipple change or discharge. Lymph Nodes: No cervical, supraclavicular, axillary or inguinal adenopathy. Oropharynx: Lips, mucosa, and tongue normal. Back: No pain to percussion. Negative SLR test Lungs clear to auscultation, No wheezing or rhonchi Heart: RRR without murmur, gallop, or rubs. Abdomen soft, non-tender. No masses, organomegaly Extremities: No deformities. No edema Neuro: Gait and speech normal. Reflexes normal and symmetric. Muscular strength intact. Sensation grossly intact. Rectal: Deferred : Deferred LABS: Glucose (mg/dL) Date Value 08/17/2024 103 Potassium (mmol/L) Date Value 08/18/2024 5.2 Sodium (mmol/L) Date Value 08/17/2024 139 Chloride (mmol/L) Date Value 08/17/2024 102 CO2 (mmol/L) Date Value 08/17/2024 25 Creatinine (mg/dL) Date Value 08/17/2024 1.46 BUN (mg/dL) Date Value 08/17/2024 18 Anion Gap (mmol/L) Date Value 08/17/2024 12 Calcium, Total (mg/dL) Date Value 08/17/2024 9.6 Protein, Total (g/dL) Date Value 07/30/2024 6.7 Albumin (g/dL) Date Value 07/30/2024 4.2 Bilirubin, Total (mg/dL) Date Value 07/30/2024 0.6 Alkaline Phosphatase (U/L) Date Value 07/30/2024 57 AST (U/L) Date Value 07/30/2024 12 ALT (U/L) Date Value 07/30/2024 7 WBC Date Value Ref Range Status 09/07/2024 7.87 3.70 - 11.00 k/uL Final RBC Date Value Ref Range Status 09/07/2024 4.91 4.20 - 6.00 m/uL Final Hemoglobin Date Value Ref Range Status 09/07/2024 13.4 13.0 - 17.0 g/dL Final Hematocrit Date Value Ref Range Status 09/07/2024 43.6 39.0 - 51.0 % Final MCV Date Value Ref Range Status 09/07/2024 88.8 80.0 - 100.0 fL Final MCH Date Value Ref Range Status 09/07/2024 27.3 26.0 - 34.0 pg Final MCHC Date Value Ref Range Status 09/07/2024 30.7 30.5 - 36.0 g/dL Final RDW-CV Date Value Ref Range Status 09/07/2024 14.7 11.5 - 15.0 % Final Platelet Count Date Value Ref Range Status 09/07/2024 209 150 - 400 k/uL Final MPV Date Value Ref Range Status 09/07/2024 9.1 9.0 - 12.7 fL Final Abs Neut Date Value Ref Range Status 09/07/2024 5.58 1.45 - 7.50 k/uL Final Lymphocytes % Date Value Ref Range Status 09/07/2024 17.8 % Final Abs Lymph Date Value Ref Range Status 09/07/2024 1.40 1.00 - 4.00 k/uL Final Monocytes % Date Value Ref Range Status 09/07/2024 8.5 % Final Abs Trimble Date Value Ref Range Status 09/07/2024 0.67 <0.87 k/uL Final Abs Eosin Date Value Ref Range Status 09/07/2024 0.14 <0.46 k/uL Final Basophils % Date Value Ref Range Status 09/07/2024 0.3 % Final Abs Baso Date Value Ref Range Status 09/07/2024 <0.03 <0.11 k/uL Final PATH: Sigmoidoscopy showed rectal mass 3 to 4 cm from the anal verge occupying one third of the circumference fixed to the top of the sphincter. Rectal mass biopsy showed invasive moderately differentiated adenocarcinoma , MSI intact FINAL DIAGNOSIS A. Ascending colon, polypectomy: - Fragments of tubular adenoma. B. Hepatic flexure, polypectomy: - Fragments of tubular adenoma. C. Transverse colon, biopsy: - Focally active colitis; no granulomas or dysplasia. D. Transverse colon, polypectomy: - Tubular adenoma. E. Descending colon, polypectomy: - Colonic mucosa with mild architectural distortion. F. Descending colon, polypectomy: - Fragments of tubular adenoma. - Fragments of hyperplastic polyp. G. Sigmoid colon, polypectomy: - Fragments of tubular adenoma. H. Rectum, polypectomy: - Hyperplastic polyp. I. Urinary bladder, dome, transurethral resection: - High-grade urothelial carcinoma, widely invasive of lamina propria (see comment). - No muscularis propria identified. J. Urinary bladder, posterior wall, transurethral resection: - High-grade papillary urothelial carcinoma, invasive of lamina propria (see comment). - Muscularis propria is present and uninvolved by tumor IMAGING: MRI rectum (07/24/24)- 2.4 cm low rectal neoplasm with probable extension into the mesorectal fat. Anterior bladder wall lesion. Further evaluation with cystoscopy recommended. Stage: T3a N0 MRF: Clear (tumor margin >2 mm from MRF) Sphincter involvement: Abutment of the internal sphincter Suspicious extra mesorectal lymph nodes: No. EMVI: No. He has received prior pelvic radiation for prostate cancer. CT Chest (06/05/24)- Study performed for preoperative planning purposes. *Noncalcified nodule in the left lower lobe measuring 0.9 cm. Follow-up chest CT recommended in 3 months. *Cystic lesion in the pancreatic body measuring 1.2 cm. Further characterization with MRI recommended CT a/p (06/05/24)- No acute findings within the abdomen or pelvis. *0.8 cm hypoattenuating lesion within the pancreatic head likely cystic in nature, nonemergent MRCP can be considered for further evaluation. ASSESSMENT AND PLAN: Brian Oneal is a 74 year old year old male referred to us for rectal cancer and bladder mass. H/o of CABG, A fib, TEJ, CKD, h/o prostate cancer s/p radiation to the prostate. PS 1 MRI rectum (07/24/24)- 2.4 cm low rectal neoplasm with probable extension into the mesorectal fat. Anterior bladder wall lesion. Further evaluation with cystoscopy recommended. Stage: T3a N0. Stage IIA. MRF: Clear (tumor margin >2 mm from MRF) Sphincter involvement: Abutment of the internal sphincter Suspicious extra mesorectal lymph nodes: No. EMVI: No. He has received prior pelvic radiation for prostate cancer. Sigmoidoscopy showed rectal mass 3 to 4 cm from the anal verge occupying one third of the circumference fixed to the top of the sphincter. Rectal mass biopsy showed invasive moderately differentiated adenocarcinoma , MSI intact He was seen by Dr. oCyne at [facility]. His recommendations were to do a repeat cystoscopy requiring TURBT in the coming weeks. - Underwent transurethral resection of the bladder tumor on 08/20/2024 by . A complete resection of all visible lesions was performed down to the deep layers of the muscularis propria. - Final pathology showed high-grade papillary urothelial carcinoma with invasion of the lamina propria. muscularis propria is present and uninvolved by the tumor. - CT chest on 08/14/2024 showed a several 4 mm or less bilateral pulmonary nodules stable and a new small to moderate size left-sided pleural effusion. - CT abdomen pelvis on 08/14/24 showed a left lateral rectal wall thickening and bladder wall thickening and no evidence of metastasis. - We will do concurrent chemo RT for the rectal cancer and intravesical BCG treatments for the bladder cancer as per the [facility] physician recommendations. - He refused bladder and rectal cancer surgeries. PLAN: - He likes to start radiation treatment to rectum on 09/27/24. - We will start Xeloda 1650mg bid starting on the day of the radiation. - Scheduled for PET scan on 09/08/24. - Refusing intravesical BCG treatments. Informed . - All his questions answered in detail - Follow-up in [address] Jeremie Coyne [address] [facility] [id number] thank you for allowing me to participate in Brian Oneal [facility], if there are any questions or concerns please do not hesitate to contact me at the number below. I spent a total of 20 minutes on the date of the service which included preparing to see the patient, [id number] patient care, completing clinical documentation, obtaining and/or reviewing separately obtained history, performing a medically appropriate examination, counseling and educating the patient/family/caregiver, ordering medications, tests, or procedures, communicating with other HCPs (not separately reported), independently interpreting results (not separately reported), communicating results to the patient/family/caregiver, and care coordination (not separately reported). Fred Gonzalez MD. Hematology/Medical Oncology [facility] [phone] CC: documented in this encounter [facility] 09-07-2024 Note [facility] 09-07-2024 Telephone encounter Note Pt has orders in [place] from Dr Sanchez to begin BCG treatments on 09/28. These need to be scheduled please. Thanks Abril Gardner, RN [facility] 09-07-2024 Nurse Note Patient would like to start treatment after 09/21/24. Mica Oliva MA [facility] 09-07-2024 Nurse Note Patient would like to start treatment after 09/21/24. Mica Oliva MA documented in this encounter [facility] 09-04-2024 Note [facility] 09-04-2024 History of Present illness Narrative Radiation Oncology - Follow Up Note PATIENT NAME: Brian Oneal PATIENT Signed by: Noah Harrison MD I spent a total of 20 minutes on the date of the service which included preparing to see the patient, [id number] patient care, and counseling and educating the patient/family/caregiver. This document has been created with the use of voice recognition technology. It may contain inaccuracies, misspellings, inaccurate syntax or inappropriate word context that are a result of the inadequacies/shortcomings of said technology/software. documented in this encounter [facility] 09-04-2024 Telephone encounter Note Charlette Mueller NP office states Paresh is not pacemaker dependent. Most recent device check in Care Everywhere was done 08/27/24. Dr. Harrison said Paresh will need a post treatment device check. Nursing will arrange for this once his treatment schedule is available. Lara Evans, RN [facility] 09-04-2024 History of Present illness Narrative BRIAN ONEAL [id number] 09/04/2024 [facility] Radiation Oncology Department SIMULATION NOTE DATE OF SIMULATION: 09/04/2024 THERAPIST: Christen Blair MACHINE: Orexo DIAGNOSIS: Malignant neoplasm of [id number] AREA: PELVIS CONTRAST: IV Oral Consent in Epic: Yes PATIENT POSITION: Supine. FIXATION DEVICE: In order to achieve accurate and reproducible treatments, the patient is immobilized with THE ORFIT AIO SYSTEM. 100ML OF OMNI 300 WAS ADMINISTERED VIA THE RIGHT AC 25ML OF OMNI 240 WAS DILUTED IN 450ML OF WATER AND GIVEN ORALLY, 1 HOUR PRIOR TO SCANNING A time-out was conducted and recorded by the therapist. CT scan was completed for target localization and planning. Field arrangement will be determined after plan has been completed. The patient is scheduled for a verification simulation on the treatment machine to ensure proper set-up and field arrangement is correct prior to the first treatment of primary and boost carey if applicable. Patient education will be completed per nursing. Electronically Signed Noah Harrison M.D. / NICO 43:17 PM documented in this encounter [facility] 09-04-2024 Note [facility] 09-03-[address] - 09/03/2024 3:20 PM EDT -aim for weight maintenance during treatment -aim for at least 3 meals per day --aim for small frequent meals/snacks - eat around the clock every 3 hours versus waiting on hunger cues -include lean protein source at each meal/snack -discussed potential nutrition related side effects from treatment -if developing diarrhea/loose stools, follow GI Soft Diet -encouraged adequate hydration -aim for 60-64 ounces non-caffeine containing fluids -if experiencing diarrhea, increase fluid intakes by 1 cup for each diarrhea stool -if appetite decreases, incorporate calorie/protein boosting techniques at meals/snacks -whole milk, full fat dairy, cream, butter/margarine, full fat soliz/dressing/condiments, oils, avocado, peanut butter, etc. documented in this encounter [facility] 09-03-2024 Note [facility] 09-03-2024 History of Present illness Narrative Oncology Nutrition Therapy Initial Assessment I have communicated my name and active licensure. The patient's identity and physical location were verified at the time of this visit. Either the patient or their legal area representative has been informed of the risks and benefits of -- and alternatives to -- treatment through a remote evaluation and consents to proceed with the evaluation remotely. RECOMMENDED MALNUTRITION DIAGNOSIS: NO MALNUTRITION IDENTIFIED Nutrition Diagnosis: Behavioral-Environmental: Food and nutrition related knowledge deficit, related to, lack of prior exposure to information , as evidenced by client has no prior knowledge of need for food and nutrition - related information Nutrition Intervention: -aim for weight maintenance during treatment -aim for at least 3 meals per day --aim for small frequent meals/snacks - eat around the clock every 3 hours versus waiting on hunger cues -include lean protein source at each meal/snack -discussed potential nutrition related side effects from treatment -if developing diarrhea/loose stools, follow GI Soft Diet -encouraged adequate hydration -aim for 60-64 ounces non-caffeine containing fluids -if experiencing diarrhea, increase fluid intakes by 1 cup for each diarrhea stool -if appetite decreases, incorporate calorie/protein boosting techniques at meals/snacks -whole milk, full fat dairy, cream, butter/margarine, full fat soliz/dressing/condiments, oils, avocado, peanut butter, etc. -provided contact information for any further questions/concerns Nutrition Monitoring & Evaluation: -PO Intake -Wt status -BM's -Biochemical Markers -Plan of care Patient's current symptoms are: None Patient presents for nutrition counseling for: rectal cancer Current Treatment: xeloda + RT (start date pending) Previous Treatment(s): n/a PMHx: prostate cancer s/p RT, CAD s/p CABG, afib, TEJ, CKD Pt denies any chewing/swallowing issues, denies current N/V/D/C. Pt during food allergies/intolerances. Pt endorses good appetite and intakes. Pt states on average he consumes 2 meals per day, he doesn't always eat breakfast. He reports his diet is balanced and includes protein/starch/veg/fruits. His meals are not large and he reports he does not over-indulge. Nutrition-related education and counseling limited today due to patient expressing concerns and venting about his current situation. Listened and provided support to patient. Briefly, reviewed above interventions, problem solved with pt on ways to meet recommendations, and answered all of patient's questions. Thank you for allowing me to participate in the care of this pt. Readiness to Learn: Cognitive ability: Alert and oriented Motivation to learn: interested Family support: Unable to assess - Family not present Instruction provided to: Patient Patient learns best by: Multiple Methods Factors affecting learning: None Physical limitations affecting learning: None Educational materials provided: GI Soft Diet Anthropometrics: Height: Last 1 Encounter Ht Readings: Date: Ht: 08/17/2024 167.6 cm (5' 6 ) Current weight: Last 1 Encounter Wt Readings: Date: Wt: 08/27/2024 98.2 kg (216 lb 7.9 oz) Estimated body mass index is 34.94 kg/m as calculated from the following: Height as of 08/17/24: 167.6 cm (5' 6 ). Weight as of 08/27/24: 98.2 kg (216 lb 7.9 oz). Resting Metabolic Rate: 1659 Weight Change: wt fluctuations noted. Pt reports on 06/18/2024 he had heart bypass surgery. Weight dropped down 210-212#. States been stable since. [place] Body Weight: 63.8kg Estimated kilocalorie needs: 7572-4738 kilocalories determined by 30-35 kcal/kg Estimated protein needs: 76-96 grams determined by 1.2-1.5 g/kg [place] weight Estimated fluid needs: ~9096-9782 milliliters based on 1 mL per kcal (unless otherwise indicated) Nutrition Focused Physical Exam: Unable to perform exam due to patient unable to participate due to encounter type (phone), will re-attempt during reassessment. Potential Signs of Inflammation: no identifiable sources Allergies: Azithromycin Medications: Current Outpatient Medications Medication Sig Dispense Refill mirabegron (MYRBETRIQ) 25 mg Tb24 Take 1 tablet by mouth once daily. 30 tablet 3 prochlorperazine (COMPAZINE) 10 mg tablet Take 1 tablet by mouth every 6 hours as needed. 100 tablet 2 ondansetron (ZOFRAN) 8 mg tablet Take 1 tablet by mouth every 8 hours as needed for nausea/vomiting. 90 tablet 2 capecitabine (XELODA) 500 mg tablet Take 3 tablets (1,500 mg) by mouth two times a day Saturday through Saturday ONLY on the days of radiation (Take with 150 mg tablet for Total Dosage 1650 mg) 180 tablet 0 capecitabine (XELODA) 150 mg tablet Take 1 tablet (150 mg) by mouth two times a day Saturday through Saturday ONLY on the days of radiation (Take with 500 mg tablet for Total Dosage 1650 mg) 60 tablet 0 phenazopyridine (PYRIDIUM) 200 mg tablet Take 1 tablet by mouth three times a day as needed for up to 14 days. For urinary burning and discomfort, will turn urine orange 30 tablet 0 iv contrast (will be provided with radiology test) MRI Rectum Inject, intravenously, once for 1 dose. No IV access, insert saline lock prior to the beginning of sedation, infusion, injection of imaging exam. Discontinue saline lock post exam. If Pt has a central line or IVAD, may access for administration according to line specific nursing protocol. Once exam is complete flush line and de-access according to line specific nursing protocol in the MR contrast administration guidelines link. (Patient not taking: Reported on 08/17/2024) 1 Each 0 enteric contrast (will be provided with radiology test) MRI RECTUM WO/W. Administer, As Directed One Time Only, via Oral, Rectal, both Oral and Rectal, Enteric Tube, Stoma or Indwelling Catheter, Enteric Contrast as designated per enteric contrast guidelines (Patient not taking: Reported on 08/17/2024) 1 Each 0 torsemide (DEMADEX) 20 mg tablet Take 1 tablet by mouth once daily. Rx called to SNF (Patient not taking: Reported on 08/17/2024) 10 tablet 0 potassium chloride (KLOR-CON 10) 10 mEq tablet Take 1 tablet by mouth once daily. Rx called to SNF (Patient not taking: Reported on 08/17/2024) 10 tablet 0 cholecalciferol (VITAMIN D) 1,000 unit tab tablet Take 1,000 Units by mouth once daily. loratadine (CLARITIN) 10 mg tablet Take 10 mg by mouth once daily. acetaminophen (TYLENOL EXTRA STRENGTH) 500 mg tablet Take 1,000 mg by mouth every 8 hours as needed. (Patient not taking: Reported on 08/17/2024) metoprolol tartrate, short acting, (LOPRESSOR) 25 mg tablet Take 1 tablet by mouth every 12 hours. aspirin 81 mg chewable tablet Take 1 tablet by mouth once daily. bisacodyl (DULCOLAX) 10 mg supp 1 Suppository by RECTAL route once daily as needed for constipation. (Patient not taking: Reported on 08/17/2024) heparin 5,000 unit/mL injection Inject 1 mL subcutaneously every 12 hours. For DVT prophylaxis until ambulatory pantoprazole DR (PROTONIX) 20 mg tablet Take 1 tablet by mouth daily at 6 am for 14 days. (Patient not taking: Reported on 08/17/2024) polyethylene glycol 3350 17 gram packet Take 1 Packet by mouth once daily as needed for constipation. Dissolve dose in 4 - 8 ounces of liquid and take as directed. gabapentin (NEURONTIN) 600 mg tablet Take 0.5 tablets by mouth every 12 hours for 30 days. (Patient not taking: Reported on 08/17/2024) No current facility-administered medications for this visit. 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 Since last conversation, he also saw Dr. Gonzalez. I again reviewed role of restaging TURBT in minimizing risk of clinical understaging of cT1HG NMIBC (especially in his case in which extensive lamina propria invasion was detected). He refuses this. I have explained risk of understaging and undertreatment by doing this. I reviewed role of induction intravesical treatment in lowering risk of disease recurrence which we reviewed in detail last time as well. I reviewed SE profile and r/b/a. He is on the fence but leaning towards pursuing treatment and we will go ahead and schedule. He wishes to pursue surveillance cystoscopy at [place] and I will reach out to my partners there to schedule. 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 Since last conversation, he also saw Dr. Gonzalez. I again reviewed role of restaging TURBT in minimizing risk of clinical understaging of cT1HG NMIBC (especially in his case in which extensive lamina propria invasion was detected). He refuses this. I have explained risk of understaging and undertreatment by doing this. I reviewed role of induction intravesical treatment in lowering risk of disease recurrence which we reviewed in detail last time as well. I reviewed SE profile and r/b/a. He is on the fence but leaning towards pursuing treatment and we will go ahead and schedule. He wishes to pursue surveillance cystoscopy at [place] and I will reach out to my partners there to schedule. Elliott Sanchez MD documented in this encounter [facility] 08-28-2024 Telephone encounter Note I made a phone appointment for Renu to follow up with him as his future appointments that are currently scheduled could not accommodate with Renu's schedule in person. Thanks! Shirley Bernabe [facility] 08-28-2024 Miscellaneous Notes I made a phone appointment for Renu to follow up with him as his future appointments that are currently scheduled could not accommodate with Renu's schedule in person. Thanks! Shirley Bernabe Please schedule pt with Renu in coordination with one of his upcoming appointments please. Thanks Abril Gardner RN I signed. Thanks. Please sign pending orders for treatment Thanks Abril Gardner RN documented in this encounter [facility] 08-28-2024 Telephone encounter Note Please schedule pt with Renu in coordination with one of his upcoming appointments please. Thanks Abril Gardner RN [facility] 08-28-2024 Telephone encounter Note I signed. Thanks. [facility] 08-28-2024 Telephone encounter Note Please sign pending orders for treatment Thanks Abril Gardner RN [facility] 08-28-2024 Telephone encounter Note Called patient to confirm date and time for chemo education [facility] 08-28-2024 Miscellaneous Notes Called patient to confirm date and time for chemo education Patient scheduled for Chemo Education after Dr. Tenorio appointment on 09/07. I will call patient to confirm Can you please schedule pt for chemo ed. Thanks Abril Gardner RN I sent Xeloda prescription to pharmacy. We will do xeloda with radiation for rectal cancer. Thanks documented in this encounter [facility] 08-28-2024 Telephone encounter Note Patient scheduled for Chemo Education after Dr. Tenorio appointment on 09/07. I will call patient to confirm [facility] 08-27-2024 Telephone encounter Note Can you please schedule pt for chemo ed. Thanks Abril Gardner RN [facility] Work Phone: 08-27-2024 Telephone encounter Note Ambulatory Pharmacy Prior Authorization Note Provider Intervention Required?: No- Pharmacy completed on your behalf. Rx Plan: Other: Medicare A/B Drug: Capecitabine Additional Information: [id number] $0 - will bill to Medicare Part B upon pear picker Patient will need Chemo ED. Drug/Drug Interacton: Pantoprazole/Capecitabine - will need addressed For questions relating to this submission, please contact [facility] at [phone] [facility] Work Phone: 08-27-2024 Miscellaneous Notes Ambulatory Pharmacy Prior Authorization Note Provider Intervention Required?: No- Pharmacy completed on your behalf. Rx Plan: Other: Medicare A/B Drug: Capecitabine Additional Information: [id number] $0 - will bill to Medicare Part B upon pear picker Patient will need Chemo ED. Drug/Drug Interacton: Pantoprazole/Capecitabine - will need addressed For questions relating to this submission, please contact [facility] at [phone] documented in this encounter [facility] 08-27-2024 Telephone encounter Note I sent Xeloda prescription to pharmacy. We will do xeloda with radiation for rectal cancer. Thanks [facility] 08-27-2024 Instructions Fred Gonzalez MD - 08/27/2024 1:31 PM EDT F/u on 09/07/24. Will order xeloda chemo pills. documented in this encounter [facility] 08-27-2024 History of Present illness Narrative PATIENT NAME: Brian Oneal CLINIC NO.: [id number] ATTENDING PHYSICIAN: Fred Gonzalez MD DATE OF SERVICE: 08/27/[address] Jeremie Coyne [id number] [facility] [id number] thank you for referring Brian Oneal for an opinion regarding rectal cancer. Some of the elements of this note have been copied from my previous progress note dated 07/30/24. All the information has been reviewed carefully. CHIEF COMPLAINT: Rectal cancer HPI: Brian Oneal is a 74 year old year old male referred to us for rectal cancer. PMH of CABG, A fib, TEJ, CKD, h/o prostate cancer s/p radiation to the prostate. The patient's course began when he developed atrial fibrillation the end of March 2024. The patient was admitted from June 11, 2024 through June 26, 2024 at [facility]. He was initially admitted to [facility] on June 04, 2024 for planned heart catheterization. This showed significant coronary artery disease CABG was recommended. During the hospitalization he had bloody stool since Eliquis was started in April and GI was consulted. 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 Colonoscopy on June 05, 2024 showed scattered sessile polyps in the ascending colon and hepatic flexure, inverted diverticula versus polyp in the transverse colon, scattered semisessile polyp in the descending colon and sigmoid colon, and a rectal mass measuring 2.5 cm suspicious for malignancy. The patient was taken to the operating room on June 18, 2024 for CABG x 3. Maze procedure RUSS clip and right atrial pacer lead performed Imaging has included: CT scan of the chest with contrast June 05, 2024 and reviewed by [facility] radiology showing indeterminate subcentimeter pulmonary nodules. No prior imaging for review. Interstitial lung abnormalities noted. Clinical and PFT correlation recommended. CT scan abdomen and pelvis with contrast June 05, 2024 and reviewed by [facility] radiology shows a 1.5 cm sessile polypoid bladder mass concerning for neoplasm. The rectal mass seen on MRI is not identifiable. MRI of the pelvis without contrast June 09, 2024 reviewed by [facility] radiology shows a 2.4 cm mass penetrating less than 1 mm beyond muscularis propria probably T3a in the low rectum with probable extension into the mesorectal fat abutting the internal sphincter without lymph node involvement. Prostatic brachytherapy seeds are noted. 1 point centimeter anterior bladder wall lesion with restricted diffusion. Sigmoidoscopy was performed showing a rectal mass 3 to 4 cm from the anal verge approximately one third the circumference of the left anterior position. The tumor is fixed at the top of the sphincter. Had cystoscopy on 07/22/24, 2 tumors, 2-5 cm, posterior wall and dome. Visit 08/27/24: - Underwent TURBT on 08/20/24 and a colonoscopy. - Urinary bladder, dome, transurethral resection: - High-grade urothelial carcinoma, widely invasive of lamina propria (see comment). - No muscularis propria identified. J. Urinary bladder, posterior wall, transurethral resection: - High-grade papillary urothelial carcinoma, invasive of lamina propria (see comment). - Muscularis propria is present and uninvolved by tumor - C/o pain while urination - Scheduled for simulation on 09/04/24. - Denies bowel problems. Current Outpatient Medications Medication Sig trospium (SANCTURA) 20 mg tablet Take 1 tablet by mouth two times a day for 14 days. phenazopyridine (PYRIDIUM) 200 mg tablet Take 1 tablet by mouth three times a day as needed for up to 14 days. For urinary burning and discomfort, will turn urine orange iv contrast (will be provided with radiology test) MRI Rectum Inject, intravenously, once for 1 dose. No IV access, insert saline lock prior to the beginning of sedation, infusion, injection of imaging exam. Discontinue saline lock post exam. If Pt has a central line or IVAD, may access for administration according to line specific nursing protocol. Once exam is complete flush line and de-access according to line specific nursing protocol in the MR contrast administration guidelines link. (Patient not taking: Reported on 08/17/2024) enteric contrast (will be provided with radiology test) MRI RECTUM WO/W. Administer, As Directed One Time Only, via Oral, Rectal, both Oral and Rectal, Enteric Tube, Stoma or Indwelling Catheter, Enteric Contrast as designated per enteric contrast guidelines (Patient not taking: Reported on 08/17/2024) torsemide (DEMADEX) 20 mg tablet Take 1 tablet by mouth once daily. Rx called to SNF (Patient not taking: Reported on 08/17/2024) potassium chloride (KLOR-CON 10) 10 mEq tablet Take 1 tablet by mouth once daily. Rx called to SNF (Patient not taking: Reported on 08/17/2024) cholecalciferol (VITAMIN D) 1,000 unit tab tablet Take 1,000 Units by mouth once daily. loratadine (CLARITIN) 10 mg tablet Take 10 mg by mouth once daily. acetaminophen (TYLENOL EXTRA STRENGTH) 500 mg tablet Take 1,000 mg by mouth every 8 hours as needed. (Patient not taking: Reported on 08/17/2024) metoprolol tartrate, short acting, (LOPRESSOR) 25 mg tablet Take 1 tablet by mouth every 12 hours. aspirin 81 mg chewable tablet Take 1 tablet by mouth once daily. bisacodyl (DULCOLAX) 10 mg supp 1 Suppository by RECTAL route once daily as needed for constipation. (Patient not taking: Reported on 08/17/2024) heparin 5,000 unit/mL injection Inject 1 mL subcutaneously every 12 hours. For DVT prophylaxis until ambulatory (Patient not taking: Reported on 07/22/2024) pantoprazole DR (PROTONIX) 20 mg tablet Take 1 tablet by mouth daily at 6 am for 14 days. (Patient not taking: Reported on 08/17/2024) polyethylene glycol 3350 17 gram packet Take 1 Packet by mouth once daily as needed for constipation. Dissolve dose in 4 - 8 ounces of liquid and take as directed. (Patient not taking: Reported on 08/17/2024) gabapentin (NEURONTIN) 600 mg tablet Take 0.5 tablets by mouth every 12 hours for 30 days. (Patient not taking: Reported on 08/17/2024) No current facility-administered medications for this visit. ALLERGIES Allergen Reactions Azithromycin Other: See Comments, GI Upset Pt states he started having bloody stools after taking azithromycin PAST MEDICAL HISTORY Diagnosis Date A-fib (HCC) CAD (coronary artery disease) CKD (chronic kidney disease) HTN (hypertension) TEJ (obstructive sleep apnea) Pacemaker Prostate cancer (HCC) Rectal cancer (HCC) Sick sinus syndrome (HCC) PAST SURGICAL HISTORY Procedure Laterality Date COLONOSCOPY 06/05/2024 PAST SURGICAL HISTORY OF left heart cath PAST SURGICAL HISTORY OF 06/18/2024 06/18/2024 CABGx3 (WREN-LAD, SVG-OM1, SVG-PDA), MAZE, LAAC, Right atrial Pacer lead FAMILY HISTORY Problem Relation Age of Onset Breast Cancer Mother Lung Cancer Sister Pancreatic Cancer Sister Cancer Sister poss Pancreatic cancer Thyroid Cancer Sister Social History Tobacco Use Smoking status: Former Average packs/day: 1 pack/day for 55.3 years (55.3 ttl pk-yrs) Types: Cigarettes Start date: 07/30/1966 Smokeless tobacco: Never Vaping Use Vaping status: Never Used Substance Use Topics Alcohol use: Not Currently Drug use: Not Currently REVIEW OF SYSTEMS GENERAL: No weight loss, malaise or fevers. No night sweats. HEENT: Negative for headaches, No changes in hearing or vision, no nose bleeds or other nasal problems. RESPIRATORY: Negative for cough, wheezing and shortness of breath CARDIOVASCULAR: Negative for chest pain, leg swelling and palpitations GI: Negative for abdominal discomfort, blood in stools or black stools and change in bowel habits : Negative for dysuria, frequency and incontinence MUSCULOSKELETAL: Negative for joint pain or swelling, back pain, and muscle pain. SKIN: Negative for lesions, rash, and itching. HEMATOLOGY/LYMPHOLOGY Negative for prolonged bleeding, bruising easily, and swollen nodes. NEURO: Negative for numbness or tingling of hands/feet. No weakness. PHYSICAL EXAMINATION: There were no vitals taken for this visit. There were no vitals taken for this visit. Last 3 Encounter Wt Readings: Date: Wt: 07/22/2024 95.2 kg (209 lb 14.1 oz) 07/22/2024 94.8 kg (209 lb) 07/03/2024 99.7 kg (219 lb 14.4 oz) General appearance:ECOG PERFORMANCE STATUS: 1- Restricted in physically strenuous activity. Carries out light duty. Patient in NAD. Skin: Skin color, texture, turgor normal. No rashes or lesions. Eyes: Anicteric sclera. Pupils are equally round and reactive to light. Extraocular movements are intact. Breast: No palpable breast masses. No nipple change or discharge. Lymph Nodes: No cervical, supraclavicular, axillary or inguinal adenopathy. Oropharynx: Lips, mucosa, and tongue normal. Back: No pain to percussion. Negative SLR test Lungs clear to auscultation, No wheezing or rhonchi Heart: RRR without murmur, gallop, or rubs. Abdomen soft, non-tender. No masses, organomegaly Extremities: No deformities. No edema Neuro: Gait and speech normal. Reflexes normal and symmetric. Muscular strength intact. Sensation grossly intact. Rectal: Deferred : Deferred LABS: Glucose (mg/dL) Date Value 08/17/2024 103 Potassium (mmol/L) Date Value 08/18/2024 5.2 Sodium (mmol/L) Date Value 08/17/2024 139 Chloride (mmol/L) Date Value 08/17/2024 102 CO2 (mmol/L) Date Value 08/17/2024 25 Creatinine (mg/dL) Date Value 08/17/2024 1.46 BUN (mg/dL) Date Value 08/17/2024 18 Anion Gap (mmol/L) Date Value 08/17/2024 12 Calcium, Total (mg/dL) Date Value 08/17/2024 9.6 Protein, Total (g/dL) Date Value 07/30/2024 6.7 Albumin (g/dL) Date Value 07/30/2024 4.2 Bilirubin, Total (mg/dL) Date Value 07/30/2024 0.6 Alkaline Phosphatase (U/L) Date Value 07/30/2024 57 AST (U/L) Date Value 07/30/2024 12 ALT (U/L) Date Value 07/30/2024 7 WBC Date Value Ref Range Status 08/17/2024 8.98 3.70 - 11.00 k/uL Final RBC Date Value Ref Range Status 08/17/2024 4.86 4.20 - 6.00 m/uL Final Hemoglobin Date Value Ref Range Status 08/17/2024 13.5 13.0 - 17.0 g/dL Final Hematocrit Date Value Ref Range Status 08/17/2024 44.3 39.0 - 51.0 % Final MCV Date Value Ref Range Status 08/17/2024 91.2 80.0 - 100.0 fL Final MCH Date Value Ref Range Status 08/17/2024 27.8 26.0 - 34.0 pg Final MCHC Date Value Ref Range Status 08/17/2024 30.5 30.5 - 36.0 g/dL Final RDW-CV Date Value Ref Range Status 08/17/2024 14.4 11.5 - 15.0 % Final Platelet Count Date Value Ref Range Status 08/17/2024 252 150 - 400 k/uL Final MPV Date Value Ref Range Status 08/17/2024 10.1 9.0 - 12.7 fL Final Abs Neut Date Value Ref Range Status 07/30/2024 4.59 1.45 - 7.50 k/uL Final Lymphocytes % Date Value Ref Range Status 07/30/2024 19.8 % Final Abs Lymph Date Value Ref Range Status 07/30/2024 1.35 1.00 - 4.00 k/uL Final Monocytes % Date Value Ref Range Status 07/30/2024 9.1 % Final Abs Trimble Date Value Ref Range Status 07/30/2024 0.62 <0.87 k/uL Final Abs Eosin Date Value Ref Range Status 07/30/2024 0.17 <0.46 k/uL Final Basophils % Date Value Ref Range Status 07/30/2024 0.6 % Final Abs Baso Date Value Ref Range Status 07/30/2024 0.04 <0.11 k/uL Final PATH: Sigmoidoscopy showed rectal mass 3 to 4 cm from the anal verge occupying one third of the circumference fixed to the top of the sphincter. Rectal mass biopsy showed invasive moderately differentiated adenocarcinoma , MSI intact FINAL DIAGNOSIS A. Ascending colon, polypectomy: - Fragments of tubular adenoma. B. Hepatic flexure, polypectomy: - Fragments of tubular adenoma. C. Transverse colon, biopsy: - Focally active colitis; no granulomas or dysplasia. D. Transverse colon, polypectomy: - Tubular adenoma. E. Descending colon, polypectomy: - Colonic mucosa with mild architectural distortion. F. Descending colon, polypectomy: - Fragments of tubular adenoma. - Fragments of hyperplastic polyp. G. Sigmoid colon, polypectomy: - Fragments of tubular adenoma. H. Rectum, polypectomy: - Hyperplastic polyp. I. Urinary bladder, dome, transurethral resection: - High-grade urothelial carcinoma, widely invasive of lamina propria (see comment). - No muscularis propria identified. J. Urinary bladder, posterior wall, transurethral resection: - High-grade papillary urothelial carcinoma, invasive of lamina propria (see comment). - Muscularis propria is present and uninvolved by tumor IMAGING: MRI rectum (07/24/24)- 2.4 cm low rectal neoplasm with probable extension into the mesorectal fat. Anterior bladder wall lesion. Further evaluation with cystoscopy recommended. Stage: T3a N0 MRF: Clear (tumor margin >2 mm from MRF) Sphincter involvement: Abutment of the internal sphincter Suspicious extra mesorectal lymph nodes: No. EMVI: No. He has received prior pelvic radiation for prostate cancer. CT Chest (06/05/24)- Study performed for preoperative planning purposes. *Noncalcified nodule in the left lower lobe measuring 0.9 cm. Follow-up chest CT recommended in 3 months. *Cystic lesion in the pancreatic body measuring 1.2 cm. Further characterization with MRI recommended CT a/p (06/05/24)- No acute findings within the abdomen or pelvis. *0.8 cm hypoattenuating lesion within the pancreatic head likely cystic in nature, nonemergent MRCP can be considered for further evaluation. ASSESSMENT AND PLAN: Brian Oneal is a 74 year old year old male referred to us for rectal cancer and bladder mass. H/o of CABG, A fib, TEJ, CKD, h/o prostate cancer s/p radiation to the prostate. PS 1 MRI rectum (07/24/24)- 2.4 cm low rectal neoplasm with probable extension into the mesorectal fat. Anterior bladder wall lesion. Further evaluation with cystoscopy recommended. Stage: T3a N0. Stage IIA. MRF: Clear (tumor margin >2 mm from MRF) Sphincter involvement: Abutment of the internal sphincter Suspicious extra mesorectal lymph nodes: No. EMVI: No. He has received prior pelvic radiation for prostate cancer. Sigmoidoscopy showed rectal mass 3 to 4 cm from the anal verge occupying one third of the circumference fixed to the top of the sphincter. Rectal mass biopsy showed invasive moderately differentiated adenocarcinoma , MSI intact He was seen by [facility]. His recommendations were to do a repeat cystoscopy requiring TURBT in the coming weeks. PLAN: - Underwent transurethral resection of the bladder tumor on 08/20/2024 by . A complete resection of all visible lesions was performed down to the deep layers of the muscularis propria. - Final pathology showed high-grade papillary urothelial carcinoma with invasion of the lamina propria. muscularis propria is present and uninvolved by the tumor. - CT chest on 08/14/2024 showed a several 4 mm or less bilateral pulmonary nodules stable and a new small to moderate size left-sided pleural effusion. - CT abdomen pelvis on 08/14/24 showed a left lateral rectal wall thickening and bladder wall thickening and no evidence of metastasis - He scheduled for a repeat MRI pelvis to be done in September 2024. Scheduled for PET scan on 09/08/24. - We will do concurrent chemo RT for the rectal cancer and intravesical BCG treatments for the bladder cancer as per the [facility] physician recommendations. - He refused bladder and rectal cancer surgeries. - F/u with [facility] here. F/u with . - All his questions answered in detail - Follow-up in [address] Jeremie Coyne [id number] [facility] [id number] thank you for allowing me to participate in [facility], if there are any questions or concerns please do not hesitate to contact me at the number below. I spent a total of 30 minutes on the date of the service which included preparing to see the patient, [id number] patient care, completing clinical documentation, obtaining and/or reviewing separately obtained history, performing a medically appropriate examination, counseling and educating the patient/family/caregiver, ordering medications, tests, or procedures, communicating with other HCPs (not separately reported), independently interpreting results (not separately reported), communicating results to the patient/family/caregiver, and care coordination (not separately reported). Fred Gonzalez MD. Hematology/Medical Oncology [facility] [phone] CC: documented in this encounter [facility] 08-27-2024 Note [facility] 08-27-2024 Telephone encounter Note Patient scheduled for pre sim and sim 09/04 at 230. Patient was in office seeing Dr. Tenorio, I gave him a printout with dates and times and explained to him. [facility] 08-27-2024 Miscellaneous Notes Patient scheduled for pre sim and sim 09/04 at 230. Patient was in office seeing Dr. Tenorio, I gave him a printout with dates and times and explained to him. PSS- per nell Adamson to schedule SIM on 09/04. Pt will need to arrive 1 hour prior to SIM for Pre SIm consent, Rad ed and Oral/IV Contrast. Please ask him to arrive with a full bladder. 2:30 presim consent and 3:30 SIM treating Rectum with IV/Oral Contrast. Please notify pt and also make sure he has been notified of pet. Thank you Sophy Eid RN PSS - This is the pt we discussed in tumor board this am. Please schedule as below-- SIM arrival will need to be 1 hour prior to SIM appt time for oral contrast (pre sim consent) Can have Rad Ed also same day. Also schedule PET JORDAN. Thanks! Sophy Eid RN Images from the original note were not included. Noah Harrison MD Weyer, Angela, RN; Lara Evans LPN Pleae schedule next available sim (rectum, small bowel and IV contrast if kidneys allow, full bladder). Si mreq placed. I will also place an order for PET - if that can be expedited. I believe he has medicare so shouldn't need pre-auth but please double check. Thanks! Noah Previous Messages ----- Message ----- From: Sophy Eid RN Sent: 08/26/2024 8:23 AM EDT To: Noah Harrison MD; Lara Evans LPN Subject: Future Appt Can you please take a look at this patient's chart and let us know next steps or what may need scheduled? Pt had TURBT and will see Dr Bahena on 08/27. THey talked about him quite a bit in tumor board, but no decisions were really made. I just dont want him to slip thru the cracks. Thanks!! ----- Message from Noah Harrison MD sent at 08/26/2024 2:16 PM EDT ----- Regarding: RE: Future Appt Pleae schedule next available sim (rectum, small bowel and IV contrast if kidneys allow, full bladder). Si mreq placed. I will also place an order for PET - if that can be expedited. I believe he has medicare so shouldn't need pre-auth but please double check. Thanks! Noah ----- Message ----- From: Sophy Eid RN Sent: 08/26/2024 8:23 AM EDT To: Noah Harrison MD; Lara Evans LPN Subject: Future Appt Can you please take a look at this patient's chart and let us know next steps or what may need scheduled? Pt had TURBT and will see Dr Bahena on 08/27. THey talked about him quite a bit in tumor board, but no decisions were really made. I just dont want him to slip thru the cracks. Thanks!! documented in this encounter [facility] 08-27-2024 Telephone encounter Note PSS- per Dr Harrison, ok to schedule SIM on 09/04. Pt will need to arrive 1 hour prior to SIM for Pre SIm consent, Rad ed and Oral/IV Contrast. Please ask him to arrive with a full bladder. 2:30 presim consent and 3:30 SIM treating Rectum with IV/Oral Contrast. Please notify pt and also make sure he has been notified of pet. Thank you Sophy Eid RN [facility] 08-26-2024 Telephone encounter Note PSS - This is the pt we discussed in tumor board this am. Please schedule as below-- SIM arrival will need to be 1 hour prior to SIM appt time for oral contrast (pre sim consent) Can have Rad Ed also same day. Also schedule PET JORDAN. Thanks! Sophy Eid RN [facility] 08-26-2024 Telephone encounter Note Images from the original note were not included. Noah Harrison MD Weyer, Angela, RN; Lara Evans LPN Pleae schedule next available sim (rectum, small bowel and IV contrast if kidneys allow, full bladder). Si mreq placed. I will also place an order for PET - if that can be expedited. I believe he has medicare so shouldn't need pre-auth but please double check. Thanks! Noah Previous Messages ----- Message ----- From: Sophy Eid, CATRACHITO Sent: 08/26/2024 8:23 AM EDT To: Noah Harrison MD; Lara Evans LPN Subject: Future Appt Can you please take a look at this patient's chart and let us know next steps or what may need scheduled? Pt had TURBT and will see Dr Bahena on 08/27. THey talked about him quite a bit in tumor board, but no decisions were really made. I just dont want him to slip thru the cracks. Thanks!! [facility] 08-26-2024 Telephone encounter Note ----- Message from Noah Harrison MD sent at 08/26/2024 2:16 PM EDT ----- Regarding: RE: Future Appt Pleae schedule next available sim (rectum, small bowel and IV contrast if kidneys allow, full bladder). Si mreq placed. I will also place an order for PET - if that can be expedited. I believe he has medicare so shouldn't need pre-auth but please double check. Thanks! Noah ----- Message ----- From: Sophy Eid RN Sent: 08/26/2024 8:23 AM EDT To: Noah Harrison MD; Lara Evans LPN Subject: Future Appt Can you please take a look at this patient's chart and let us know next steps or what may need scheduled? Pt had TURBT and will see Dr Bahena on 08/27. THey talked about him quite a bit in tumor board, but no decisions were really made. I just dont want him to slip thru the cracks. Thanks!! [facility] 08-25-2024 Telephone encounter Note I contacted Brian Oneal to review surgical pathology results from TURBT (cT1HG with extensive LP invasion, MP present and uninvolved). I had an extensive discussion lasting over 30 minutes reviewing pathology results and his myriad of complaints and concerns. First, I reviewed the role of restaging TURBT and minimizing risk of under staging. Given the extensive lamina propria invasion, he is at high risk of muscle invasive disease and I strongly recommend restaging TURBT. He was at first overall, and then adamantly opposed to pursuing this and much of our conversation was regarding his goals of care and what he would be willing to pursue as far as diagnostic testing and treatment. After reviewing this in detail, he elects against restaging TURBT and accepts risk of clinical under staging. Second, I reviewed the treatment paradigm for high risk nonmuscle base of bladder cancer as well as muscle-invasive bladder cancer. I reviewed the role of induction intravesical therapy and treatment of high-grade NMIBC and the role of surveillance cystoscopy and imaging in monitoring. I reviewed the side effect profile and toxicity of treatment and risk of recurrence which would require repeat resection and further treatment. He again expressed strong aversion to doing this but after lengthy discussion, ultimately agreed to consider pursuing this so long as he could receive treatment in [place] which we can coordinate and pursue surveillance cystoscopy with one of my partners at [facility] which I could coordinate. As it relates to muscle invasive disease, I did discuss the role of neoadjuvant systemic therapy and radical cystectomy or trimodality therapy and management. He is strongly opposed to radical cystectomy and reluctant to consider TMT. My concern with radiotherapy to the bladder would be potential exacerbation of significant existing baseline urinary symptoms, prior prostate radiotherapy, and a radiation induced prostatic urethral stricture. I will review the results of TURBT and my recommendations with the rest of his team (Drs. Avina, Clayton, Lisa) and offered to discuss results and my recommendations with his PCP Dr. Decker who he notes is also a close friend. Paresh has indicated he will let me know if he wants me to discuss with Dr. Decker. He sees Dr. Gonzalez later this week. I will touch base again next week after reviewing with the rest of the team. Elliott Sanchez MD [facility] Work Phone: 08-25-2024 Miscellaneous Notes I contacted Brian Oneal to review surgical pathology results from TURBT (cT1HG with extensive LP invasion, MP present and uninvolved). I had an extensive discussion lasting over 30 minutes reviewing pathology results and his myriad of complaints and concerns. First, I reviewed the role of restaging TURBT and minimizing risk of under staging. Given the extensive lamina propria invasion, he is at high risk of muscle invasive disease and I strongly recommend restaging TURBT. He was at first overall, and then adamantly opposed to pursuing this and much of our conversation was regarding his goals of care and what he would be willing to pursue as far as diagnostic testing and treatment. After reviewing this in detail, he elects against restaging TURBT and accepts risk of clinical under staging. Second, I reviewed the treatment paradigm for high risk nonmuscle base of bladder cancer as well as muscle-invasive bladder cancer. I reviewed the role of induction intravesical therapy and treatment of high-grade NMIBC and the role of surveillance cystoscopy and imaging in monitoring. I reviewed the side effect profile and toxicity of treatment and risk of recurrence which would require repeat resection and further treatment. He again expressed strong aversion to doing this but after lengthy discussion, ultimately agreed to consider pursuing this so long as he could receive treatment in [place] which we can coordinate and pursue surveillance cystoscopy with one of my partners at [facility] which I could coordinate. As it relates to muscle invasive disease, I did discuss the role of neoadjuvant systemic therapy and radical cystectomy or trimodality therapy and management. He is strongly opposed to radical cystectomy and reluctant to consider TMT. My concern with radiotherapy to the bladder would be potential exacerbation of significant existing baseline urinary symptoms, prior prostate radiotherapy, and a radiation induced prostatic urethral stricture. I will review the results of TURBT and my recommendations with the rest of his team (Drs. Avina, Clayton, Lisa) and offered to discuss results and my recommendations with his PCP Dr. Decker who he notes is also a close friend. Paresh has indicated he will let me know if he wants me to discuss with Dr. Decker. He sees Dr. Gonzalez later this week. I will touch base again next week after reviewing with the rest of the team. Elliott Sanchez MD documented in this encounter [facility] 08-20-2024 Note [facility] 08-18-2024 History of Present illness Narrative [facility] PRE-OP NOTE Brian Oneal is a 74 year old male. Pre-op Date: August 18, 2024 Date of Procedure: 08/20/24 Procedure/Surgery: Surgeon Role Service Elliott Sanchez MD Primary Urology Procedure: RESECTION BLADDER TUMOR TRANSURETHRAL Laterality Anesthesia Op Region N/A Choice - Anesthesia Consult Bladder Panel 2 Surgeon Role Service Stacy Mcarthur MD Primary Colorectal Procedure: COLONOSCOPY WITH BIOPSY Laterality Anesthesia Op Region N/A Choice - Anesthesia Consult Abdomen Diagnosis: rectal cancer, bladder mass Primary Surgeon: Elliott Sanchez MD There were no vitals taken for this visit. Pain Assessment: Are you currently having pain? No 0 on a scale of 0 to 10 Surgical Guide Book Status: Patient given book today. Dialysis Guide Book Status: N/A Allergies Reviewed: Yes Medications Reviewed: Yes Is patient currently on oral steroids?: No Has the patient had a UTI in the past month?: No. Does the patient have any artificial joints (last 2 years), metal parts, pacemakers or cardiac/ureteral stents in place?: Yes, pacemaker Does the patient have diabetes?: No Is the patient routinely taking anticoagulants?: 81mg aspirin Can the patient have an IV put in either arm?: Yes Urine Dip Complete?: Yes URINE CULTURE COMPLETE?: Yes Ostomy/Stoma Nurse appointment made/completed: N/A IMPACT/Medical Clearance: Cleared per IMPACT - Yes [facility] Clinic: Cleared per PACE - N/A All testing on cureform has been scheduled: Yes Consent Signed: Consent not in Epic DOS Orders Placed and Signed: Yes. Pre-op H&P Done by [facility]: Yes. PATIENT INSTRUCTIONS FOR SURGERY 1.) DO NOT HAVE ANYTHING TO EAT AFTER MIDNIGHT THE DAY BEFORE SURGERY except for certain morning medications as instructed by the doctor. Candy, mints, gum, and smoking are NOT permitted. You may drink clear liquids (Sprite, water, tc margarita) up to two hours before your arrival time on the day of surgery. 2.) Medications to be taken on the morning of surgery with a few sips of water: per IMPACT 3.) Please bring all your prescribed inhalers (if you have any you normally take) to the hospital. 4.) Arrival time: Call for arrival. 5.) Prep given: No 6.) Lovenox instructions given: N/A 7.) Patient reminded that surgery time provided day before surgery is tentative based on potential changes with transplants. Recommendations: This patient is optimally prepared for surgery pending LABS. Joaquina Dacosta APRN.CNP documented in this encounter [facility] 08-18-2024 Note [facility] 08-17-2024 Telephone encounter Note Greetings Dr. Wilder, This is in regards to our mutual patient, Mr. Brian Oneal 74 year old who was seen at my office on 08/17/2024 . The patient is scheduled for RESECTION BLADDER TUMOR TRANSURETHRAL COLONOSCOPY WITH BIOPSY with Dr Elliott Sanchez on 08/20/2024. Is patient OK to hold ASA Preparations for 7 days prior to procedure or should patient remain on this martha-operatively? Is the patient medically optimized for surgery and ok to proceed? Thank you. Sincerely, Riya Liu PA-C [facility] [facility] 08-17-[address] Wilder, This is in regards to our mutual patient, Mr. Brian Oneal 74 year old who was seen at my office on 08/17/2024 . The patient is scheduled for RESECTION BLADDER TUMOR TRANSURETHRAL COLONOSCOPY WITH BIOPSY with Dr Elliott Sanchez on 08/20/2024. Is patient OK to hold ASA Preparations for 7 days prior to procedure or should patient remain on this martha-operatively? Is the patient medically optimized for surgery and ok to proceed? Thank you. Sincerely, Riya Liu PA-C [employer] [facility] documented in this encounter [facility] 08-17-2024 History and physical note Images from the original note were not included. [facility] HISTORY AND PHYSICAL EXAMINATION SERVICE DATE: 08/17/2024 SERVICE TIME: 12:27 PM PRIMARY CARE PHYSICIAN: Elliot Decker MD REASON FOR VISIT: Brian Oneal is a 74 year old male who is scheduled for RESECTION BLADDER TUMOR TRANSURETHRAL COLONOSCOPY WITH BIOPSY at the request of Dr. Elliott Sanchez for consultation. My final recommendation will be communicated back to the requesting physician by way of shared medical record or letter. Assessment 1. Pre-op evaluation Surgery scheduled on 08/20/2024. 2. Primary hypertension BP 138/72. Taking metoprolol (Toprol) and torsemide. Denies any CP, dizziness, double vision, or FRANCO. Cardiology following, stable Last 14 BP Last 14 Encounter BP Readings: Date: BP: 08/17/2024 138/72 07/30/2024 123/76 07/30/2024 123/76 07/22/2024 150/79 07/22/2024 150/79 07/03/2024 136/70 06/09/2024 129/59 3. Mixed hyperlipidemia Taking atorvastatin (Lipitor). 4. Coronary artery disease involving [place] coronary artery of [place] heart without angina pectoris Left heart cath 05/2024. No cardiac stents. S/p CABGx3 on 06/18/[address] Masood Wilder. Taking ASA. Patient gets some mild FRANCO when bending over to tie his shoes, but he is doing cardiac rehab twice a week without symptoms. He occasionally gets some sternal pain due to recent surgery/incision. Will get ASA recs and optimization from cardiology. 5. Atrial fibrillation, chronic (HCC) S/p MAZE and RUSS clip on 06/18/24. Follows with cardiology, last seen by Tamiko Mcduffie CNP on 07/03/24. No longer in Afib and no longer on Eliquis. RRR and pulse 69 today on exam. Stable. 6. RVF (right ventricular failure) ([facility]) 7. Pacemaker Pacemaker placed in 2021. Last device check 06/22/24. Cardiology following, stable. Type of device: Biotronik Solia S Last interrogation: 06/22/24 Pacemaker dependency: A pacing 100%, RV pacing 86%- yes Surgical site: bladder/colon Location of CIED generator in body: left chest Device rep needed: yes Battery: 80% 8. Former smoker 1 ppd x 55 years, quit 2021 9. TEJ (obstructive sleep apnea) Non-compliant with CPAP, cannot tolerate 10. Stage 3 chronic kidney disease, unspecified whether stage 3a or 3b CKD (HCC) CMP from 07/30/24 demonstrates BUN 18, Cr 1.29, and GFR 57. Will get updated CMP today. PCP following. 11. Rectal cancer (HCC) Has been having some rectal bleeding, minimal. Incidental finding of rectal mass in May 2024 during colonoscopy in [place]. No previous treatments have been done. See HPI, having above surgery. 12. History of prostate cancer S/p radiation and brachytherapy in 2009. 13. Obesity, BMI 30-39.9 Body mass index is 34.3 kg/m . 14. Anemia, unspecified type CBC from 07/30/24 demonstrated H/H of 11.8/37.6. No current oral supplements. Asymptomatic. Will get CBC updated today. Parker Activity Status Index: METS: Walk indoors, such as around the house (1.75 METs) Do light work around the house, such as dusting or washing dishes (2.70 METs) Take care of self; that is eating, dressing, bathing, using the toilet (2.75 METs) Walk a block or two on level ground (2.75 METs) Do moderate work around the house, such as vacuuming, sweeping floors, or carrying in groceries (3.50 METs) Climb a flight of stairs or walk up a hill (5.50 METs) DASI Score: 18.95 (Cardiac rehab 2x a week- stationary bike and leg exercises) Patient denies any chest pain or undue shortness of breath with the above physical activity. Clinical Frailty Scale: 3. Well, with treated comorbid disease STOP-Bang Score: Snores loudly Has or is being treated for high blood pressure Patient over 50 years old Male patient Has not been observed to stop breathing or choking/gasping during sleep BMI less than or equal to 35 kg/m^2 STOP-Bang Score: 4 ANESTHESIA FINDINGS: Intubation History: No history of difficult intubation Significant Anesthesia Considerations: none Airway History: No history of difficult airway I - PHYSICAL EVALUATION AIRWAY Patient intubated: No. Tracheostomy tube not present Mallampati: II. TM distance: >3 FB. Neck ROM: full ROM without neurological symptoms. Mouth opening: adequate. Short neck: no. Thick neck: no Francisco present: no Lip Bite Test: I Microretrognathia/Micronagthia/R ecessed Chin: No DENTAL Dental findings: teeth intact. II - ANESTHESIA PLAN Beta Mikel Monitoring Plan Post Procedure Analgesic Plan Prepared for surgery: This patient is optimally prepared for surgery pending LABS. CONSULTS: Cardiology Consult for cardiac clearance for ASA and optimization. TE sent to Dr. Masood Wilder. The Following Tests/Procedures Have Been Initiated: No orders of the defined types were placed in this encounter. , EKG not indicated per [facility] protocol Labs reviewed from 07/30/24. CBC, BMP, PT, PTT, UA, and UC ordered by surgeon- patient to complete today. Planned Anesthetic: Per anesthesia choice Subjective CHIEF COMPLAINT: Rectal cancer (HCC) [C20] Bladder mass [N32.89] HPI: Patient is a 74 year old male presenting to pre-anesthesia consultation. Patient has been having intermittent rectal bleeding since May 2024. When he had a colonoscopy in [place] which a rectal mass was found and biopsied. He was told it was rectal cancer. Denies any abdominal pain, nausea, vomiting. He was also found to have a bladder mass on cystoscopy, but denies any hematuria, but does have dysuria. He has been diagnosed with rectal cancer and bladder mass and has been recommended for the above surgery. REVIEW OF SYSTEMS: PAIN ASSESSMENT: General: No weight loss, malaise or fevers. Neuro: No history of TIA's, stroke, WORK ORDER CLERK tumor, impaired sensorium, hemiplegia, paraplegia or quadraplegia. No neurological symptoms or problems. Respiratory: +TEJ, former smoker, mild FRANCO with bending over Negative for Asthma, COPD, Current cough, Home O2, Pneumonia within 6 weeks (date), URI < 2 weeks, Wheezing Cardiovascular: +HTN, HLD, CAD, RVF, Afib s/p CABGx3, MAZE, RUSS clip (06/18/24), pacemaker placed 2021 Negative for Recent PR, Angina, Chest Pain, CHF, DVT/PE GI: See HPI : +CKDIII See HPI Endocrine: No history of diabetes. Has not taken steroids within the past 30 days. No history of endocrinological symptoms or problems. Hematology: +hx anemia Denies any history of other hematological symptoms/problems Oncology: +hx prostate cancer s/p radiation and brachytherapy (2009), rectal cancer, bladder mass- see HPI Psych: No history of psychiatric symptoms or problems. Musculoskeletal: Negative for joint pain or swelling, back pain or muscle pain. Skin: healing RLE wound from vein harvesting with CABG 06/2024- no infection The patient has the following: ACTIVE PROBLEM LIST Rectal Cancer (Hcc) Coronary Artery Disease Atrial Fibrillation, Chronic (Hcc) Chronic Anticoagulation Hypertension Hyperlipidemia Pacemaker Postoperative Pain Stress Hyperglycemia Obesity, Class I, Bmi 30-34.9 Abla (Acute Blood Loss Anemia) Atelectasis Ckd (Chronic Kidney Disease) Stage 3, Gfr 30-59 Ml/Min ([facility]) Rvf (Right Ventricular Failure) ([facility]) Encounter for Support and Coordination of Transition of Care Hypervolemia Tej (Obstructive Sleep Apnea) Obesity, Class II, Bmi 35-39.9 History of Prostate Cancer Anemia Obesity (Bmi 30-39.9) Covid Immunization Dates Overdue - Covid-19 Vaccine () Overdue since 07/12/2024 11/14/2023 Imm Admin: COVID-19 vaccine, age 12+ yr, 2022- season ([employer]) 10/31/2021 Outside Immunization: COVID-19 (MODERNA), MRNA, LNP-S, PF, 100 MCG/0.5ML DOSE OR 50 MCG/0.25ML DOSE 10/20/2021 Imm Admin: COVID-19 vaccine, unspecified formulation 02/03/2021 Imm Admin: COVID-19 vaccine, unspecified formulation 01/06/2021 Imm Admin: COVID-19 vaccine, unspecified formulation Only the first 5 history entries have been loaded, but more history exists. PAST MEDICAL HISTORY Diagnosis Date A-fib (HCC) CAD (coronary artery disease) CKD (chronic kidney disease) HTN (hypertension) TEJ (obstructive sleep apnea) Pacemaker Prostate cancer (HCC) Rectal cancer (HCC) Sick sinus syndrome (HCC) PAST SURGICAL HISTORY Procedure Laterality Date COLONOSCOPY 06/05/2024 PAST SURGICAL HISTORY OF left heart cath PAST SURGICAL HISTORY OF 06/18/2024 06/18/2024 CABGx3 (WREN-LAD, SVG-OM1, SVG-PDA), MAZE, LAAC, Right atrial Pacer lead FAMILY HISTORY Problem Relation Age of Onset Breast Cancer Mother Lung Cancer Sister Pancreatic Cancer Sister Cancer Sister poss Pancreatic cancer Thyroid Cancer Sister Social History Tobacco Use Smoking status: Former Average packs/day: 1 pack/day for 55.3 years (55.3 ttl pk-yrs) Types: Cigarettes Start date: 07/30/1966 Smokeless tobacco: Never Vaping Use Vaping status: Never Used Substance Use Topics Alcohol use: Not Currently Drug use: Not Currently Prior to Admission medications as of 08/17/24 1248 Medication Sig Last Dose Taking cholecalciferol (VITAMIN D) 1,000 unit tab tablet Take 1,000 Units by mouth once daily. Taking Yes metoprolol tartrate, short acting, (LOPRESSOR) 25 mg tablet Take 1 tablet by mouth every 12 hours. Taking Yes aspirin 81 mg chewable tablet Take 1 tablet by mouth once daily. Taking Yes atorvastatin (LIPITOR) 40 mg tablet Take 40 mg by mouth daily at bedtime. Taking Yes iv contrast (will be provided with radiology test) MRI Rectum Inject, intravenously, once for 1 dose. No IV access, insert saline lock prior to the beginning of sedation, infusion, injection of imaging exam. Discontinue saline lock post exam. If Pt has a central line or IVAD, may access for administration according to line specific nursing protocol. Once exam is complete flush line and de-access according to line specific nursing protocol in the MR contrast administration guidelines link. Patient not taking: Reported on 08/17/2024 Not Taking enteric contrast (will be provided with radiology test) MRI RECTUM WO/W. Administer, As Directed One Time Only, via Oral, Rectal, both Oral and Rectal, Enteric Tube, Stoma or Indwelling Catheter, Enteric Contrast as designated per enteric contrast guidelines Patient not taking: Reported on 08/17/2024 Not Taking torsemide (DEMADEX) 20 mg tablet Take 1 tablet by mouth once daily. Rx called to SNF Patient not taking: Reported on 08/17/2024 Not Taking potassium chloride (KLOR-CON 10) 10 mEq tablet Take 1 tablet by mouth once daily. Rx called to SNF Patient not taking: Reported on 08/17/2024 Not Taking loratadine (CLARITIN) 10 mg tablet Take 10 mg by mouth once daily. Patient not taking: Reported on 08/17/2024 Not Taking acetaminophen (TYLENOL EXTRA STRENGTH) 500 mg tablet Take 1,000 mg by mouth every 8 hours as needed. Patient not taking: Reported on 08/17/2024 Not Taking bisacodyl (DULCOLAX) 10 mg supp 1 Suppository by RECTAL route once daily as needed for constipation. Patient not taking: Reported on 08/17/2024 Not Taking heparin 5,000 unit/mL injection Inject 1 mL subcutaneously every 12 hours. For DVT prophylaxis until ambulatory Patient not taking: Reported on 07/22/[address] (PROTONIX) 20 mg tablet Take 1 tablet by mouth daily at 6 am for 14 days. Patient not taking: Reported on 08/17/2024 Not Taking polyethylene glycol 3350 17 gram packet Take 1 Packet by mouth once daily as needed for constipation. Dissolve dose in 4 - 8 ounces of liquid and take as directed. Patient not taking: Reported on 08/17/2024 Not Taking gabapentin (NEURONTIN) 600 mg tablet Take 0.5 tablets by mouth every 12 hours for 30 days. Patient not taking: Reported on 08/17/2024 Not Taking No medication comments found. ALLERGIES Allergen Reactions Azithromycin Other: See Comments, GI Upset Pt states he started having bloody stools after taking azithromycin Objective PHYSICAL EXAM: VITALS: BP 138/72 Pulse 69 Temp (Src) 96.7 (Temporal) Resp 18 Ht 5' 6 (1.68m) Wt 212 lb 8.4 oz (96.4kg) SpO2 96% BMI 34.32 kg/(m^2). General: Alert and oriented, Obese Skin: Normal color, no rash, no lesions. HEENT: EOM, pupils equal, round and reactive. Cardiovascular: Normal S1 & S2, no rubs, murmurs or gallops. No JVD. Pulse regular. Lungs: Normal breath sounds, no wheezes or crackles. Abdomen: Soft, non-tender, no rigidity. Extremities: No deformity, no edema or tenderness, no joint swelling or clubbing. Healing RLE wound, covered but per patient not infected. Neurological: Normal cognition and motor skills. Pulses: Carotid and radial pulses normal +2. Diagnostic tests reviewed for today's visit: Lab Value Units Date High Low HB 13.5 g/dL 08/17/2024 17.0 13.0 HCT 44.3 % 08/17/2024 51.0 39.0 WBC 8.98 k/uL 08/17/2024 11.00 3.70 PLT 252 k/uL 08/17/2024 400 150 NA 138 mmol/L 07/30/2024 144 136 K 5.2 mmol/L 07/30/2024 5.1 3.7 GLUC 95 mg/dL 07/30/2024 99 74 BUN 18 mg/dL 07/30/2024 24 9 CREAT 1.29 mg/dL 07/30/2024 1.22 0.73 PTSEC 10.9 sec 08/17/2024 13.0 9.7 INR 1.0 no uni* 08/17/2024 1.3 0.9 APTT 29.5 sec 08/17/2024 32.4 23.0 ALT 7 U/L 07/30/2024 54 10 AST 12 U/L 07/30/2024 40 14 TBILI 0.6 mg/dL 07/30/2024 1.3 0.2 TSH 2.830 mIU/L 06/16/2024 4.200 0.270 Hemoglobin A1C (%) Date Value 06/16/2024 5.9 Most recent EKG Recent Results (from the past 8760 hour(s)) ECG COMPLETE Collection Time: 07/03/24 2:00 PM Result Value Ventricular Rate 71 Atrial Rate 71 P-R Interval 212 QRS Duration 126 QT Interval 394 QTC Calculation (Bazett) 428 Calculated R [place] -9 Calculated T [place] 47 Impression ATRIAL-PACED RHYTHM WITH PROLONGED AV CONDUCTION NONSPECIFIC INTRAVENTRICULAR BLOCK ANTERIOR T WAVE ABNORMALITY ABNORMAL ECG Confirmed by DON MARCUS, MAK ([id number]) on 07/21/2024 10:23:25 PM Most recent Echo Recent Results (from the past 87493 hour(s)) ECHO Collection Time: 06/13/24 7:29 AM Impression CONCLUSIONS: - Technically difficult exam due to body habitus and suboptimal positioning. - Exam indication: Abnormal Cardiac Biomarkers - The left ventricle is normal in size. There is moderate septal left ventricular hypertrophy. Left ventricular systolic function is normal. EF = 55 5% (visual est.) Very limited visualization of LV subendocardial border. No obvious regional wall motion abnormalities. - The right ventricle is normal in size. Right ventricular systolic function is normal. - The visualized aorta is borderline dilated with a maximal dimension of 4.0 cm. - The patient has not had a prior CC echocardiographic exam for comparison. * * * Final * * * Device check- 06/22/24 US carotid- 06/16/24 IMPRESSION RIGHT SIDE Internal carotid artery: 20-39% stenosis. Vertebral artery: Patent and antegrade flow noted. LEFT SIDE Internal carotid artery: 20-39% stenosis. Vertebral artery: Patent and antegrade flow noted. Instructions Given to Patient: Instructions located in the after visit summary. Patient given verbal and written preop instructions and voices comprehension and compliance. SIGNATURE: Riya Liu PA-C PATIENT NAME: Brian Oneal DATE: 08/17/2024 TIME: 2:00 PM [facility] 08-17-2024 History and physical note Images from the original note were not included. [facility] HISTORY AND PHYSICAL EXAMINATION SERVICE DATE: 08/17/2024 SERVICE TIME: 12:27 PM PRIMARY CARE PHYSICIAN: Elliot Decker MD REASON FOR VISIT: Brian Oneal is a 74 year old male who is scheduled for RESECTION BLADDER TUMOR TRANSURETHRAL COLONOSCOPY WITH BIOPSY at the request of Dr. Elliott Sanchez for consultation. My final recommendation will be communicated back to the requesting physician by way of shared medical record or letter. Assessment 1. Pre-op evaluation Surgery scheduled on 08/20/2024. 2. Primary hypertension BP 138/72. Taking metoprolol (Toprol) and torsemide. Denies any CP, dizziness, double vision, or FRANCO. Cardiology following, stable Last 14 BP Last 14 Encounter BP Readings: Date: BP: 08/17/2024 138/72 07/30/2024 123/76 07/30/2024 123/76 07/22/2024 150/79 07/22/2024 150/79 07/03/2024 136/70 06/09/2024 129/59 3. Mixed hyperlipidemia Taking atorvastatin (Lipitor). 4. Coronary artery disease involving [place] coronary artery of [place] heart without angina pectoris Left heart cath 05/2024. No cardiac stents. S/p CABGx3 on 06/18/[address] Masood Wilder. Taking ASA. Patient gets some mild FRANCO when bending over to tie his shoes, but he is doing cardiac rehab twice a week without symptoms. He occasionally gets some sternal pain due to recent surgery/incision. Will get ASA recs and optimization from cardiology. 5. Atrial fibrillation, chronic (HCC) S/p MAZE and RUSS clip on 06/18/24. Follows with cardiology, last seen by Tamiko Mcduffie CNP on 07/03/24. No longer in Afib and no longer on Eliquis. RRR and pulse 69 today on exam. Stable. 6. RVF (right ventricular failure) (HCC) 7. Pacemaker Pacemaker placed in 2021. Last device check 06/22/24. Cardiology following, stable. Type of device: Biotronik Solia S Last interrogation: 06/22/24 Pacemaker dependency: A pacing 100%, RV pacing 86%- yes Surgical site: bladder/colon Location of CIED generator in body: left chest Device rep needed: yes Battery: 80% 8. Former smoker 1 ppd x 55 years, quit 2021 9. TEJ (obstructive sleep apnea) Non-compliant with CPAP, cannot tolerate 10. Stage 3 chronic kidney disease, unspecified whether stage 3a or 3b CKD (HCC) CMP from 07/30/24 demonstrates BUN 18, Cr 1.29, and GFR 57. Will get updated CMP today. PCP following. 11. Rectal cancer (HCC) Has been having some rectal bleeding, minimal. Incidental finding of rectal mass in May 2024 during colonoscopy in [place]. No previous treatments have been done. See HPI, having above surgery. 12. History of prostate cancer S/p radiation and brachytherapy in 2009. 13. Obesity, BMI 30-39.9 Body mass index is 34.3 kg/m . 14. Anemia, unspecified type CBC from 07/30/24 demonstrated H/H of 11.8/37.6. No current oral supplements. Asymptomatic. Will get CBC updated today. Parker Activity Status Index: METS: Walk indoors, such as around the house (1.75 METs) Do light work around the house, such as dusting or washing dishes (2.70 METs) Take care of self; that is eating, dressing, bathing, using the toilet (2.75 METs) Walk a block or two on level ground (2.75 METs) Do moderate work around the house, such as vacuuming, sweeping floors, or carrying in groceries (3.50 METs) Climb a flight of stairs or walk up a hill (5.50 METs) DASI Score: 18.95 (Cardiac rehab 2x a week- stationary bike and leg exercises) Patient denies any chest pain or undue shortness of breath with the above physical activity. Clinical Frailty Scale: 3. Well, with treated comorbid disease STOP-Bang Score: [place] loudly Has or is being treated for high blood pressure Patient over 50 years old Male patient Has not been observed to stop breathing or choking/gasping during sleep BMI less than or equal to 35 kg/m^2 STOP-Bang Score: 4 ANESTHESIA FINDINGS: Intubation History: No history of difficult intubation Significant Anesthesia Considerations: none Airway History: No history of difficult airway I - PHYSICAL EVALUATION AIRWAY Patient intubated: No. Tracheostomy tube not present Mallampati: II. TM distance: >3 FB. Neck ROM: full ROM without neurological symptoms. Mouth opening: adequate. Short neck: no. Thick neck: no Francisco present: no Lip Bite Test: I Microretrognathia/Micronagthia/R ecessed Chin: No DENTAL Dental findings: teeth intact. II - ANESTHESIA PLAN Beta Mikel Monitoring Plan Post Procedure Analgesic Plan Prepared for surgery: This patient is optimally prepared for surgery pending LABS. CONSULTS: Cardiology Consult for cardiac clearance for ASA and optimization. TE sent to Dr. Masood Wilder. The Following Tests/Procedures Have Been Initiated: No orders of the defined types were placed in this encounter. , EKG not indicated per [facility] protocol Labs reviewed from 07/30/24. CBC, BMP, PT, PTT, UA, and UC ordered by surgeon- patient to complete today. Planned Anesthetic: Per anesthesia choice Subjective CHIEF COMPLAINT: Rectal cancer (HCC) [C20] Bladder mass [N32.89] HPI: Patient is a 74 year old male presenting to pre-anesthesia consultation. Patient has been having intermittent rectal bleeding since May 2024. When he had a colonoscopy in [place] which a rectal mass was found and biopsied. He was told it was rectal cancer. Denies any abdominal pain, nausea, vomiting. He was also found to have a bladder mass on cystoscopy, but denies any hematuria, but does have dysuria. He has been diagnosed with rectal cancer and bladder mass and has been recommended for the above surgery. REVIEW OF SYSTEMS: PAIN ASSESSMENT: General: No weight loss, malaise or fevers. Neuro: No history of TIA's, stroke, WORK ORDER CLERK tumor, impaired sensorium, hemiplegia, paraplegia or quadraplegia. No neurological symptoms or problems. Respiratory: +TEJ, former smoker, mild FRANCO with bending over Negative for Asthma, COPD, Current cough, Home O2, Pneumonia within 6 weeks (date), URI < 2 weeks, Wheezing Cardiovascular: +HTN, HLD, CAD, RVF, Afib s/p CABGx3, MAZE, RUSS clip (06/18/24), pacemaker placed 2021 Negative for Recent PR, Angina, Chest Pain, CHF, DVT/PE GI: See HPI : +CKDIII See HPI Endocrine: No history of diabetes. Has not taken steroids within the past 30 days. No history of endocrinological symptoms or problems. Hematology: +hx anemia Denies any history of other hematological symptoms/problems Oncology: +hx prostate cancer s/p radiation and brachytherapy (2009), rectal cancer, bladder mass- see HPI Psych: No history of psychiatric symptoms or problems. Musculoskeletal: Negative for joint pain or swelling, back pain or muscle pain. Skin: healing RLE wound from vein harvesting with CABG 06/2024- no infection The patient has the following: ACTIVE PROBLEM LIST Rectal Cancer (Hcc) Coronary Artery Disease Atrial Fibrillation, Chronic (Hcc) Chronic Anticoagulation Hypertension Hyperlipidemia Pacemaker Postoperative Pain Stress Hyperglycemia Obesity, Class I, Bmi 30-34.9 Abla (Acute Blood Loss Anemia) Atelectasis Ckd (Chronic Kidney Disease) Stage 3, Gfr 30-59 Ml/Min ([facility]) Rvf (Right Ventricular Failure) ([facility]) Encounter for Support and Coordination of Transition of Care Hypervolemia Tej (Obstructive Sleep Apnea) Obesity, Class II, Bmi 35-39.9 History of Prostate Cancer Anemia Obesity (Bmi 30-39.9) Covid Immunization Dates Overdue - Covid-19 Vaccine (2023- season) Overdue since 07/12/2024 11/14/2023 Imm Admin: COVID-19 vaccine, age 12+ yr, 2022- season ([employer]) 10/31/2021 Outside Immunization: COVID-19 (MODERNA), MRNA, LNP-S, PF, 100 MCG/0.5ML DOSE OR 50 MCG/0.25ML DOSE 10/20/2021 Imm Admin: COVID-19 vaccine, unspecified formulation 02/03/2021 Imm Admin: COVID-19 vaccine, unspecified formulation 01/06/2021 Imm Admin: COVID-19 vaccine, unspecified formulation Only the first 5 history entries have been loaded, but more history exists. PAST MEDICAL HISTORY Diagnosis Date A-fib (HCC) CAD (coronary artery disease) CKD (chronic kidney disease) HTN (hypertension) TEJ (obstructive sleep apnea) Pacemaker Prostate cancer (HCC) Rectal cancer (HCC) Sick sinus syndrome (HCC) PAST SURGICAL HISTORY Procedure Laterality Date COLONOSCOPY 06/05/2024 PAST SURGICAL HISTORY OF left heart cath PAST SURGICAL HISTORY OF 06/18/2024 06/18/2024 CABGx3 (WREN-LAD, SVG-OM1, SVG-PDA), MAZE, LAAC, Right atrial Pacer lead FAMILY HISTORY Problem Relation Age of Onset Breast Cancer Mother Lung Cancer Sister Pancreatic Cancer Sister Cancer Sister poss Pancreatic cancer Thyroid Cancer Sister Social History Tobacco Use Smoking status: Former Average packs/day: 1 pack/day for 55.3 years (55.3 ttl pk-yrs) Types: Cigarettes Start date: 07/30/1966 Smokeless tobacco: Never Vaping Use Vaping status: Never Used Substance Use Topics Alcohol use: Not Currently Drug use: Not Currently Prior to Admission medications as of 08/17/24 1248 Medication Sig Last Dose Taking cholecalciferol (VITAMIN D) 1,000 unit tab tablet Take 1,000 Units by mouth once daily. Taking Yes metoprolol tartrate, short acting, (LOPRESSOR) 25 mg tablet Take 1 tablet by mouth every 12 hours. Taking Yes aspirin 81 mg chewable tablet Take 1 tablet by mouth once daily. Taking Yes atorvastatin (LIPITOR) 40 mg tablet Take 40 mg by mouth daily at bedtime. Taking Yes iv contrast (will be provided with radiology test) MRI Rectum Inject, intravenously, once for 1 dose. No IV access, insert saline lock prior to the beginning of sedation, infusion, injection of imaging exam. Discontinue saline lock post exam. If Pt has a central line or IVAD, may access for administration according to line specific nursing protocol. Once exam is complete flush line and de-access according to line specific nursing protocol in the MR contrast administration guidelines link. Patient not taking: Reported on 08/17/2024 Not Taking enteric contrast (will be provided with radiology test) MRI RECTUM WO/W. Administer, As Directed One Time Only, via Oral, Rectal, both Oral and Rectal, Enteric Tube, Stoma or Indwelling Catheter, Enteric Contrast as designated per enteric contrast guidelines Patient not taking: Reported on 08/17/2024 Not Taking torsemide (DEMADEX) 20 mg tablet Take 1 tablet by mouth once daily. Rx called to SNF Patient not taking: Reported on 08/17/2024 Not Taking potassium chloride (KLOR-CON 10) 10 mEq tablet Take 1 tablet by mouth once daily. Rx called to SNF Patient not taking: Reported on 08/17/2024 Not Taking loratadine (CLARITIN) 10 mg tablet Take 10 mg by mouth once daily. Patient not taking: Reported on 08/17/2024 Not Taking acetaminophen (TYLENOL EXTRA STRENGTH) 500 mg tablet Take 1,000 mg by mouth every 8 hours as needed. Patient not taking: Reported on 08/17/2024 Not Taking bisacodyl (DULCOLAX) 10 mg supp 1 Suppository by RECTAL route once daily as needed for constipation. Patient not taking: Reported on 08/17/2024 Not Taking heparin 5,000 unit/mL injection Inject 1 mL subcutaneously every 12 hours. For DVT prophylaxis until ambulatory Patient not taking: Reported on 07/22/[address] (PROTONIX) 20 mg tablet Take 1 tablet by mouth daily at 6 am for 14 days. Patient not taking: Reported on 08/17/2024 Not Taking polyethylene glycol 3350 17 gram packet Take 1 Packet by mouth once daily as needed for constipation. Dissolve dose in 4 - 8 ounces of liquid and take as directed. Patient not taking: Reported on 08/17/2024 Not Taking gabapentin (NEURONTIN) 600 mg tablet Take 0.5 tablets by mouth every 12 hours for 30 days. Patient not taking: Reported on 08/17/2024 Not Taking No medication comments found. ALLERGIES Allergen Reactions Azithromycin Other: See Comments, GI Upset Pt states he started having bloody stools after taking azithromycin Objective PHYSICAL EXAM: VITALS: BP 138/72 Pulse 69 Temp (Src) 96.7 (Temporal) Resp 18 Ht 5' 6 (1.68m) Wt 212 lb 8.4 oz (96.4kg) SpO2 96% BMI 34.32 kg/(m^2). General: Alert and oriented, Obese Skin: Normal color, no rash, no lesions. HEENT: EOM, pupils equal, round and reactive. Cardiovascular: Normal S1 & S2, no rubs, murmurs or gallops. No JVD. Pulse regular. Lungs: Normal breath sounds, no wheezes or crackles. Abdomen: Soft, non-tender, no rigidity. Extremities: No deformity, no edema or tenderness, no joint swelling or clubbing. Healing RLE wound, covered but per patient not infected. Neurological: Normal cognition and motor skills. Pulses: Carotid and radial pulses normal +2. Diagnostic tests reviewed for today's visit: Lab Value Units Date High Low HB 13.5 g/dL 08/17/2024 17.0 13.0 HCT 44.3 % 08/17/2024 51.0 39.0 WBC 8.98 k/uL 08/17/2024 11.00 3.70 PLT 252 k/uL 08/17/2024 400 150 NA 138 mmol/L 07/30/2024 144 136 K 5.2 mmol/L 07/30/2024 5.1 3.7 GLUC 95 mg/dL 07/30/2024 99 74 BUN 18 mg/dL 07/30/2024 24 9 CREAT 1.29 mg/dL 07/30/2024 1.22 0.73 PTSEC 10.9 sec 08/17/2024 13.0 9.7 INR 1.0 no uni* 08/17/2024 1.3 0.9 APTT 29.5 sec 08/17/2024 32.4 23.0 ALT 7 U/L 07/30/2024 54 10 AST 12 U/L 07/30/2024 40 14 TBILI 0.6 mg/dL 07/30/2024 1.3 0.2 TSH 2.830 mIU/L 06/16/2024 4.200 0.270 Hemoglobin A1C (%) Date Value 06/16/2024 5.9 Most recent EKG Recent Results (from the past 8760 hour(s)) ECG COMPLETE Collection Time: 07/03/24 2:00 PM Result Value Ventricular Rate 71 Atrial Rate 71 P-R Interval 212 QRS Duration 126 QT Interval 394 QTC Calculation (Bazett) 428 Calculated R [place] -9 Calculated T [place] 47 Impression ATRIAL-PACED RHYTHM WITH PROLONGED AV CONDUCTION NONSPECIFIC INTRAVENTRICULAR BLOCK ANTERIOR T WAVE ABNORMALITY ABNORMAL ECG Confirmed by DON MARCUS, MAK ([id number]) on 07/21/2024 10:23:25 PM Most recent Echo Recent Results (from the past 62341 hour(s)) ECHO Collection Time: 06/13/24 7:29 AM Impression CONCLUSIONS: - Technically difficult exam due to body habitus and suboptimal positioning. - Exam indication: Abnormal Cardiac Biomarkers - The left ventricle is normal in size. There is moderate septal left ventricular hypertrophy. Left ventricular systolic function is normal. EF = 55 5% (visual est.) Very limited visualization of LV subendocardial border. No obvious regional wall motion abnormalities. - The right ventricle is normal in size. Right ventricular systolic function is normal. - The visualized aorta is borderline dilated with a maximal dimension of 4.0 cm. - The patient has not had a prior CC echocardiographic exam for comparison. * * * Final * * * Device check- 06/22/24 US carotid- 06/16/24 IMPRESSION RIGHT SIDE Internal carotid artery: 20-39% stenosis. Vertebral artery: Patent and antegrade flow noted. LEFT SIDE Internal carotid artery: 20-39% stenosis. Vertebral artery: Patent and antegrade flow noted. Instructions Given to Patient: Instructions located in the after visit summary. Patient given verbal and written preop instructions and voices comprehension and compliance. SIGNATURE: iRya Liu PA-C PATIENT NAME: Brian Oneal DATE: 08/17/2024 TIME: 2:00 PM documented in this encounter [facility] 08-14-2024 Instructions Riya Liu PA-C - 08/14/2024 1:22 PM EDT Images from the original note were not included. [facility] PATIENT PREOPERATIVE INSTRUCTIONS Elliott Sanchez MD has scheduled you for your procedure at this surgery center: [facility] Scheduling Office: [phone] --[address] [place] [address]. Your surgeon ordered blood work which should be completed today from 08/14/24. Arrival Time for Surgery: - To obtain your arrival time for surgery, call your physician's office the day before your surgery. - If your surgery is scheduled for Saturday, call the Saturday before. Your surgeon s surgical scheduler will tell you what time to call the office. - If you have not reached the departmental surgical scheduler by 5 P.M., call [phone] after 5 P.M. the day before your surgery. Please be aware that emergency situations arise, which may delay or change your surgical time. If this happens, we will notify you as soon as possible and regret any inconvenience. Please read below carefully for your personalized instructions. Dietary Restrictions: - You may have 12 ounces of clear liquids (water, clear juices such as apple juice or gatorade, carbonated beverages, clear tea, black coffee, jello) until 2 hours before scheduled arrival at facility. - Follow bowel prep instructions: clear liquids need to be stopped 2 hours prior to schedule arrival at facility Medications: Unless instructed differently below, stay on all of your medications until your surgery. Approved medications to take the morning of surgery with a sip of water: metoprolol (Toprol), atorvastatin (Lipitor) Is Patient Diabetic:No If you take any medications for erectile dysfunction-Cialis (Tadalafil), Levitra, Staxyn (Vardenafil) Viagra (Sildenenafil please do not take these for 48 hours before surgery. If you start any new medications after today's visit, please contact the surgeon's office. Blood Thinning Medications: - Stop NSAIDS (Ibuprofen, Advil, Aleve, Motrin, Celebrex, Mobic, etc.) 7 days before surgery, as directed by your surgeon. - Do NOT stop aspirin or other anticoagulants without consulting with your district leader or prescribing physician. - Stop Vitamin E, ALL multi-vitamins, herbals and dietary supplements 14 days before surgery. - You may take Tylenol (Acetaminophen) or any of your pain medications that do not contain aspirin or NSAIDS as needed. Important Reminders: - If you use CPAP/BIPAP, bring the machine with you to the surgery center. - Candy, mints, and tobacco products are NOT permitted the morning of surgery. - Hearing aids, dentures and glasses may be worn the morning of surgery, but you may be asked to remove them prior to your procedure. - NO jewelry, body piercings, makeup, hairpins or contacts are to be worn the day of surgery. If you develop symptoms such as a fever, cold, or flu, or have other changes to your health within TWO DAYS of scheduled surgery or the morning of surgery, please contact the surgery center above. Personal Belongings: -Please have photo ID and insurance cards. -If you do not have a copy of advance directives on file with us, please bring a copy with you on the day of surgery. - Leave ALL valuables and money at home or with family members. For Outpatient Procedures: - YOU MUST HAVE A RESPONSIBLE MORTGAGE CLERK TAKE YOU HOME. A FIELD SALES REPRESENTATIVE OR FOOD STAND MANAGER CANNOT BE MADE A RESPONSIBLE MORTGAGE CLERK. - We recommend that a responsible person stays with you overnight to take care of you. - You cannot stay in a hotel alone after outpatient surgery. You will not be permitted to have your surgery, if you do not have someone to take care of you. If you already have an Advance Directive, please fax a copy to [phone] or email to for it to be added to your chart. If you do not have an Advance Directive, you can find the appropriate form and more information at [email or web address]. We recommend that you complete the Advance Directive form found on the website and bring it with you the day of your surgery. It can be witnessed and scanned into your chart that day. Riya Liu PA-C documented in this encounter [facility] 08-14-2024 History of Present illness Narrative Radiology Service Progress Note DATE OF SERVICE: August 14, 2024 TIME: 11:43 AM PATIENT WEIGHT: 211LBS PATIENT IDENTITY VERIFICATION COMPLETED USING TWO (2) STANDARD IDENTIFIERS: Name and Date of confirmed by patient verbally. FALL SCREENING: Has the patient had 2 falls in the last year or 1 fall with injury or currently using an Ambulatory Assistive Device (Walker, Cane, Wheelchair, Crutches, etc.)? No PATIENT GENDER DATA: Male ALLERGIES: Reviewed and unchanged CONTRAST ALLERGY: No EXAM: CT -CONTRAST INDUCED NEPHROPATHY RISK FACTORS: Patient age > 60 years CREATININE: Creatinine Date Value Ref Range Status 07/30/2024 1.29 (H) 0.73 - 1.22 mg/dL Final 07/03/2024 1.39 (H) 0.73 - 1.22 mg/dL Final 06/26/2024 1.46 (H) 0.73 - 1.22 mg/dL Final Estimated Glomerular Filtration Rate Date Value Ref Range Status 07/30/2024 57 (L) >=60 mL/min/1.73m Final Comment: Estimated Glomerular Filtration Rate (eGFR) is calculated using the 2020 CKD-EPI creatinine equation. This equation utilizes serum creatinine, sex, and age as parameters. The creatinine assay has traceable calibration to isotope dilution-mass spectrometry. Refer to KDIGO guidelines for clinical interpretation. In patients with unstable renal function, e.g. those with acute kidney injury, the eGFR may not accurately reflect actual GFR. P.O.C.T. RESULTS: POC done: Yes, See Lab Tab August 14, 2024 TREATMENT: N/A IV SITE: Ambulatory: A peripheral IV was started in the Right antecubital site with a Angio cath: 20 gauge. IV SITE APPEARANCE: Clean,Dry and Intact SIGNATURE: Miguelina Acevedo RN PATIENT NAME: Brian Oneal DATE: August 14, 2024 TIME: 11:43 AM Radiology Service Progress Note PATIENT NAME: Brian Oneal DATE OF SERVICE: August 14, 2024 TIME: 1:09 PM PATIENT IDENTITY VERIFICATION COMPLETED USING TWO (2) IDENTIFIERS: Name and Date of confirmed by patient verbally. FALL SCREENING: Has the patient had 2 falls in the last year or 1 fall with injury or currently using an Ambulatory Assistive Device (Walker, Cane, Wheelchair, Crutches, etc.)? No PATIENT GENDER DATA: Male PATIENT RELEVANT IMPLANT DATA REVIEWED: Not Applicable PATIENT PRESENTS WITH AN IMPLANTABLE OR ATTACHED LAST GREASER: No RADIOLOGY DEPARTMENT: CT; Exam(s) Completed: Chest Abdomen Pelvis PERIPHERAL IV DATA: Site assessment: Clean,Dry and Intact, Site disposition Discontinued SIGNED BY: Antonina Alarcon, RT(R) August 14, 2024 1:09 PM documented in this encounter [facility] 08-14-2024 Note [facility] 08-14-2024 Note [facility] 08-11-2024 Note Pt is here for a two week follow up. Pt denies sob, chest pain, palpatations. Review of Systems All other systems reviewed and are negative. [facility] 08-11-2024 Note Cardiovascular Medic [facility] SUBJECTIVE Chief Complaint Patient presents with Coronary Artery Disease Brian Oneal is a 74 y.o. male here for follow-up after his recent CABG x3 and to assess his right leg wounds/swelling. HPI PMHx: CAD S/P on 06/18/2024 CABGx3 (WREN-LAD, SVG-OM1, SVG-PDA), MAZE, LAAC, Right atrial Pacer lead, chronic a.fib, CKD III, SSS s/p PPM, PVD, HLD, HTN 08/11/2024 Swelling and redness are much better. See picture in media. He is now seeing wound care. He is feeling well. He has started cardiac rehab. He only has dyspnea with pending over to tie his shoes. Denies c/o CP, dyspnea, orthopnea, PND, LE edema, dizziness/LH, palpitations, syncope. ' 07/29/2024 He recently underwent a CABG at [facility]. He was discharged from rehab yesterday. Post op, he did develop issues with swelling and blisters in his right lower leg around his graft harvest site. He was on an abx for a period of time from CT sx and these have been completed. He still has some swelling and redness. He has some mild chest discomfort/tightness in various positions. Denies c/o dyspnea, orthopnea, PND, dizziness/LH, palpitations, syncope. He was recently found to have a rectal cancer. He plans to undergo chemo/radiation. They also saw a bladder mass that he is following up with urology. Patient Active Problem List Diagnosis Chest pain Edema of lower extremity Syncope Cardiac device in situ Sick sinus syndrome (CMS/HCC) Severe claudication (CMS/HCC) Essential (primary) hypertension Nicotine dependence Obstructive sleep apnea of child Atrial fibrillation (CMS/HCC) Pneumonia Abnormal stress test Anemia Triple vessel coronary artery disease Rectal mass ABLA (acute blood loss anemia) Atelectasis Chronic anticoagulation CKD (chronic kidney disease) stage 3, GFR 30-59 ml/min (CMS/HCC) Encounter for support and coordination of transition of care Hypervolemia Hyperlipidemia Stress hyperglycemia RVF (right ventricular failure) (CMS/HCC) Rectal cancer (CMS/HCC) Postoperative pain Obesity, Class II, BMI 35-39.9 Obesity, Class I, BMI 30-34.9 Atrial fibrillation, chronic (CMS/HCC) Pacemaker Tight chest Hypertension TEJ (obstructive sleep apnea) Coronary artery disease Past Medical History: Diagnosis Date Abnormal ECG Arrhythmia Atrial fibrillation (CMS/HCC) Cancer (CMS/HCC) Coronary artery disease Hypertension Sick sinus syndrome (CMS/HCC) Sinus bradycardia Sleep apnea Syncope Family History Problem Relation Name Age of Onset Coronary artery disease Mother Social History Tobacco Use Smoking status: Former Packs/day: 1 Types: Cigarettes Substance Use Topics Alcohol use: Not Currently Allergies Allergen Reactions Azithromycin Other Pt states he started having bloody stools after taking azithromycin ROS Cardiovascular: Positive for leg swelling. Respiratory: Positive for shortness of breath (bendopnea). Hematologic/Lymphatic: Bruises/bleeds easily. Skin: Positive for color change. All other systems reviewed and are negative. OBJECTIVE Visit Vitals BP 142/81 Pulse 67 Ht 1.727 m (5' 8 ) Wt 95.7 kg (211 lb) SpO2 98% BMI 32.08 kg/m??? Smoking Status Former BSA 2.14 m??? Medications: Current Outpatient Medications: aspirin 81 mg EC tablet, Take 81 mg by mouth in the morning., Disp: , Rfl: atorvastatin (Lipitor) 40 mg tablet, Take 1 tablet (40 mg) by mouth at bedtime., Disp: 90 tablet, Rfl: 3 cholecalciferol (Vitamin D-3) 25 MCG (1000 units) tablet, Take 1,000 Units by mouth in the morning., Disp: , Rfl: metoprolol tartrate (Lopressor) 25 mg tablet, Take 25 mg by mouth twice a day., Disp: , Rfl: loratadine (Claritin) 10 mg tablet, Take 10 mg by mouth in the morning., Disp: , Rfl: Physical Exam Constitutional: Appearance: Normal appearance. He is obese. HENT: Head: Normocephalic and atraumatic. Right Ear: External ear normal. Left Ear: External ear normal. Eyes: Extraocular Movements: Extraocular movements intact. Pupils: Pupils are equal, round, and reactive to light. Neck: Vascular: No carotid bruit. Cardiovascular: Rate and Rhythm: Normal rate and regular rhythm. Pulses: Normal pulses. Heart sounds: Normal heart sounds. Pulmonary: Effort: Pulmonary effort is normal. Comments: Clear upper and RLL, diminished left lower lobe Abdominal: General: Bowel sounds are normal. Palpations: Abdomen is soft. Musculoskeletal: General: Normal range of motion. Cervical back: Neck supple. Right lower leg: Edema (+1-2 edema with scattered erythema and calor - see media for image) present. Left lower leg: No edema. Skin: General: Skin is warm and dry. Comments: Midsternal incision healing well and without s/s of infection Neurological: General: No focal deficit present. Mental Status: He is alert and oriented to person, place, and time. Psychiatric: (more content not included)... [facility] 08-04-[address] Earl's consult notes were faxed to Barbara in radiation oncology at [place] as requested. Christen GIRALDO, CATRACHITO Specialty 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 [facility] Work Phone: 08-04-[address] Earl's consult notes were faxed to Barbara in radiation oncology at [place] as requested. Christen GIRALDO, CATRACHITO Specialty 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 documented in this encounter [facility] 08-04-2024 Telephone encounter Note Called to see if pt scheduled. Sharri working on scheduling. Dr Sanchez is out of the office this week. Typically takes a couple of weeks to schedule. AV: ANTHONY Chand RN [facility] 08-04-2024 Miscellaneous Notes Called to see if pt scheduled. Sharri working on scheduling. Dr Sanchez is out of the office this week. Typically takes a couple of weeks to schedule. AV: ANTHONY Chand RN Dr Sanchez's ASSESSMENT/PLAN: Bladder neoplasm, requiring TURBT. Reviewed r/b/a and post-op expectations including need for catheter. Will review with Clayton Del Rio, and Duong. Ok to continue ASA 81 through surgery. Called and spoke with office, nurse is working on scheduling. Dr Montalvo would like to know date, once pt is scheduled for TURBT. Gemma Chand RN documented in this encounter [facility] 07-30-2024 Note [facility] 07-30-2024 History of Present illness Narrative Radiation Oncology - Follow Up Note PATIENT NAME: Brian Oneal PATIENT Signed by: Noah Harrison MD I spent a total of 30 minutes on the date of the service which included preparing to see the patient, [id number] patient care, and counseling and educating the patient/family/caregiver. This document has been created with the use of voice recognition technology. It may contain inaccuracies, misspellings, inaccurate syntax or inappropriate word context that are a result of the inadequacies/shortcomings of said technology/software. documented in this encounter [facility] 07-30-[address] Sanchez's ASSESSMENT/PLAN: Bladder neoplasm, requiring TURBT. Reviewed r/b/a and post-op expectations including need for catheter. Will review with Clayton Del Rio, and Duong. Ok to continue ASA 81 through surgery. Called and spoke with office, nurse is working on scheduling. Dr Montalvo would like to know date, once pt is scheduled for TURBT. Gemma Chand RN [facility] 07-30-2024 History of Present illness Narrative PATIENT NAME: Brian Oneal [facility] NO.: [id number] ATTENDING PHYSICIAN: Fred Gonzalez MD DATE OF SERVICE: July 30, [address] Jeremie Coyne [address] [facility] [address] thank you for referring Brian Oneal for an opinion regarding rectal cancer. CHIEF COMPLAINT: Rectal cancer HPI: Brian Oneal is a 74 year old year old male referred to us for rectal cancer. PMH of CABG, A fib, TEJ, CKD, h/o prostate cancer s/p radiation to the prostate. The patient's course began when he developed atrial fibrillation the end of March 2024. The patient was admitted from June 11, 2024 through June 26, [facility]. He was initially admitted to [facility] on June 04, 2024 for planned heart catheterization. This showed significant coronary artery disease CABG was recommended. During the hospitalization he had bloody stool since Eliquis was started in April and GI was consulted. 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 Colonoscopy on June 05, 2024 showed scattered sessile polyps in the ascending colon and hepatic flexure, inverted diverticula versus polyp in the transverse colon, scattered semisessile polyp in the descending colon and sigmoid colon, and a rectal mass measuring 2.5 cm suspicious for malignancy. The patient was taken to the operating room on June 18, 2024 for CABG x 3. Maze procedure RUSS clip and right atrial pacer lead performed Imaging has included: CT scan of the chest with contrast June 05, 2024 and reviewed by [facility] radiology showing indeterminate subcentimeter pulmonary nodules. No prior imaging for review. Interstitial lung abnormalities noted. Clinical and PFT correlation recommended. CT scan abdomen and pelvis with contrast June 05, 2024 and reviewed by [facility] radiology shows a 1.5 cm sessile polypoid bladder mass concerning for neoplasm. The rectal mass seen on MRI is not identifiable. MRI of the pelvis without contrast June 09, 2024 reviewed by [facility] radiology shows a 2.4 cm mass penetrating less than 1 mm beyond muscularis propria probably T3a in the low rectum with probable extension into the mesorectal fat abutting the internal sphincter without lymph node involvement. Prostatic brachytherapy seeds are noted. 1 point centimeter anterior bladder wall lesion with restricted diffusion. Sigmoidoscopy was performed showing a rectal mass 3 to 4 cm from the anal verge approximately one third the circumference of the left anterior position. The tumor is fixed at the top of the sphincter. Had cystoscopy on 07/22/24, 2 tumors, 2-5 cm, posterior wall and dome.. Current Outpatient Medications Medication Sig iv contrast (will be provided with radiology test) MRI Rectum Inject, intravenously, once for 1 dose. No IV access, insert saline lock prior to the beginning of sedation, infusion, injection of imaging exam. Discontinue saline lock post exam. If Pt has a central line or IVAD, may access for administration according to line specific nursing protocol. Once exam is complete flush line and de-access according to line specific nursing protocol in the MR contrast administration guidelines link. enteric contrast (will be provided with radiology test) MRI RECTUM WO/W. Administer, As Directed One Time Only, via Oral, Rectal, both Oral and Rectal, Enteric Tube, Stoma or Indwelling Catheter, Enteric Contrast as designated per enteric contrast guidelines torsemide (DEMADEX) 20 mg tablet Take 1 tablet by mouth once daily. Rx called to SNF potassium chloride (KLOR-CON 10) 10 mEq tablet Take 1 tablet by mouth once daily. Rx called to SNF cholecalciferol (VITAMIN D) 1,000 unit tab tablet Take 1,000 Units by mouth once daily. loratadine (CLARITIN) 10 mg tablet Take 10 mg by mouth once daily. acetaminophen (TYLENOL EXTRA STRENGTH) 500 mg tablet Take 1,000 mg by mouth every 8 hours as needed. metoprolol tartrate, short acting, (LOPRESSOR) 25 mg tablet Take 1 tablet by mouth every 12 hours. aspirin 81 mg chewable tablet Take 1 tablet by mouth once daily. bisacodyl (DULCOLAX) 10 mg supp 1 Suppository by RECTAL route once daily as needed for constipation. heparin 5,000 unit/mL injection Inject 1 mL subcutaneously every 12 hours. For DVT prophylaxis until ambulatory (Patient not taking: Reported on 07/22/2024) pantoprazole DR (PROTONIX) 20 mg tablet Take 1 tablet by mouth daily at 6 am for 14 days. polyethylene glycol 3350 17 gram packet Take 1 Packet by mouth once daily as needed for constipation. Dissolve dose in 4 - 8 ounces of liquid and take as directed. gabapentin (NEURONTIN) 600 mg tablet Take 0.5 tablets by mouth every 12 hours for 30 days. atorvastatin (LIPITOR) 40 mg tablet Take 40 mg by mouth daily at bedtime. No current facility-administered medications for this visit. ALLERGIES Allergen Reactions Azithromycin Other: See Comments, GI Upset Pt states he started having bloody stools after taking azithromycin PAST MEDICAL HISTORY Diagnosis Date A-fib (HCC) CAD (coronary artery disease) CKD (chronic kidney disease) HTN (hypertension) TEJ (obstructive sleep apnea) Pacemaker Prostate cancer (HCC) Rectal cancer (HCC) Sick sinus syndrome (HCC) PAST SURGICAL HISTORY Procedure Laterality Date COLONOSCOPY 06/05/2024 PAST SURGICAL HISTORY OF left heart cath PAST SURGICAL HISTORY OF 06/18/2024 06/18/2024 CABGx3 (WREN-LAD, SVG-OM1, SVG-PDA), MAZE, LAAC, Right atrial Pacer lead No family history on file. Social History Tobacco Use Smoking status: Former Types: Cigarettes Smokeless tobacco: Never REVIEW OF SYSTEMS GENERAL: No weight loss, malaise or fevers. No night sweats. HEENT: Negative for headaches, No changes in hearing or vision, no nose bleeds or other nasal problems. RESPIRATORY: Negative for cough, wheezing and shortness of breath CARDIOVASCULAR: Negative for chest pain, leg swelling and palpitations GI: Negative for abdominal discomfort, blood in stools or black stools and change in bowel habits : Negative for dysuria, frequency and incontinence MUSCULOSKELETAL: Negative for joint pain or swelling, back pain, and muscle pain. SKIN: Negative for lesions, rash, and itching. HEMATOLOGY/LYMPHOLOGY Negative for prolonged bleeding, bruising easily, and swollen nodes. NEURO: Negative for numbness or tingling of hands/feet. No weakness. PHYSICAL EXAMINATION: There were no vitals taken for this visit. There were no vitals taken for this visit. Last 3 Encounter Wt Readings: Date: Wt: 07/22/2024 95.2 kg (209 lb 14.1 oz) 07/22/2024 94.8 kg (209 lb) 07/03/2024 99.7 kg (219 lb 14.4 oz) General appearance:ECOG PERFORMANCE STATUS: 1- Restricted in physically strenuous activity. Carries out light duty. Patient in NAD. Skin: Skin color, texture, turgor normal. No rashes or lesions. Eyes: Anicteric sclera. Pupils are equally round and reactive to light. Extraocular movements are intact. Breast: No palpable breast masses. No nipple change or discharge. Lymph Nodes: No cervical, supraclavicular, axillary or inguinal adenopathy. Oropharynx: Lips, mucosa, and tongue normal. Back: No pain to percussion. Negative SLR test Lungs clear to auscultation, No wheezing or rhonchi Heart: RRR without murmur, gallop, or rubs. Abdomen soft, non-tender. No masses, organomegaly Extremities: No deformities. No edema Neuro: Gait and speech normal. Reflexes normal and symmetric. Muscular strength intact. Sensation grossly intact. Rectal: Deferred : Deferred LABS: Glucose (mg/dL) Date Value 07/03/2024 92 Potassium (mmol/L) Date Value 07/03/2024 5.1 Sodium (mmol/L) Date Value 07/03/2024 139 Chloride (mmol/L) Date Value 07/03/2024 104 CO2 (mmol/L) Date Value 07/03/2024 25 Creatinine (mg/dL) Date Value 07/03/2024 1.39 BUN (mg/dL) Date Value 07/03/2024 22 Anion Gap (mmol/L) Date Value 07/03/2024 10 Calcium, Total (mg/dL) Date Value 07/03/2024 9.1 Protein, Total (g/dL) Date Value 07/03/2024 6.0 Albumin (g/dL) Date Value 07/03/2024 3.3 Bilirubin, Total (mg/dL) Date Value 07/03/2024 0.7 Alkaline Phosphatase (U/L) Date Value 07/03/2024 53 AST (U/L) Date Value 07/03/2024 19 ALT (U/L) Date Value 07/03/2024 22 WBC Date Value Ref Range Status 07/03/2024 8.70 3.70 - 11.00 k/uL Final RBC Date Value Ref Range Status 07/03/2024 3.25 (L) 4.20 - 6.00 m/uL Final Hemoglobin Date Value Ref Range Status 07/03/2024 9.4 (L) 13.0 - 17.0 g/dL Final Hematocrit Date Value Ref Range Status 07/03/2024 31.6 (L) 39.0 - 51.0 % Final MCV Date Value Ref Range Status 07/03/2024 97.2 80.0 - 100.0 fL Final MCH Date Value Ref Range Status 07/03/2024 28.9 26.0 - 34.0 pg Final MCHC Date Value Ref Range Status 07/03/2024 29.7 (L) 30.5 - 36.0 g/dL Final RDW-CV Date Value Ref Range Status 07/03/2024 15.7 (H) 11.5 - 15.0 % Final Platelet Count Date Value Ref Range Status 07/03/2024 394 150 - 400 k/uL Final MPV Date Value Ref Range Status 07/03/2024 9.5 9.0 - 12.7 fL Final Abs Neut Date Value Ref Range Status 06/11/2024 5.24 1.45 - 7.50 k/uL Final Lymphocytes % Date Value Ref Range Status 06/11/2024 23.2 % Final Abs Lymph Date Value Ref Range Status 06/11/2024 1.95 1.00 - 4.00 k/uL Final Monocytes % Date Value Ref Range Status 06/11/2024 9.9 % Final Abs Trimble Date Value Ref Range Status 06/11/2024 0.83 <0.87 k/uL Final Abs Eosin Date Value Ref Range Status 06/11/2024 0.18 <0.46 k/uL Final Basophils % Date Value Ref Range Status 06/11/2024 0.5 % Final Abs Baso Date Value Ref Range Status 06/11/2024 0.04 <0.11 k/uL Final PATH: Sigmoidoscopy showed rectal mass 3 to 4 cm from the anal verge occupying one third of the circumference fixed to the top of the sphincter. Rectal mass biopsy showed invasive moderately differentiated adenocarcinoma , MSI intact IMAGING: MRI rectum (07/24/24)- 2.4 cm low rectal neoplasm with probable extension into the mesorectal fat. Anterior bladder wall lesion. Further evaluation with cystoscopy recommended. Stage: T3a N0 MRF: Clear (tumor margin >2 mm from MRF) Sphincter involvement: Abutment of the internal sphincter Suspicious extra mesorectal lymph nodes: No. EMVI: No. He has received prior pelvic radiation for prostate cancer. CT Chest (06/05/24)- Study performed for preoperative planning purposes. *Noncalcified nodule in the left lower lobe measuring 0.9 cm. Follow-up chest CT recommended in 3 months. *Cystic lesion in the pancreatic body measuring 1.2 cm. Further characterization with MRI recommended CT a/p (06/05/24)- No acute findings within the abdomen or pelvis. *0.8 cm hypoattenuating lesion within the pancreatic head likely cystic in nature, nonemergent MRCP can be considered for further evaluation. ASSESSMENT AND PLAN: Brian Oneal is a 74 year old year old male referred to us for rectal cancer and bladder mass. H/o of CABG, A fib, TEJ, CKD, h/o prostate cancer s/p radiation to the prostate. PS 1 MRI rectum (07/24/24)- 2.4 cm low rectal neoplasm with probable extension into the mesorectal fat. Anterior bladder wall lesion. Further evaluation with cystoscopy recommended. Stage: T3a N0 MRF: Clear (tumor margin >2 mm from MRF) Sphincter involvement: Abutment of the internal sphincter Suspicious extra mesorectal lymph nodes: No. EMVI: No. He has received prior pelvic radiation for prostate cancer. Sigmoidoscopy showed rectal mass 3 to 4 cm from the anal verge occupying one third of the circumference fixed to the top of the sphincter. Rectal mass biopsy showed invasive moderately differentiated adenocarcinoma , MSI intact PLAN: -He was seen by Dr. Coyne at the main campus. His recommendations were to do a repeat cystoscopy requiring TURBT in the coming weeks. -We will check with the urologist office to see when he is scheduled for a repeat cystoscopy -Coming to the rectal cancer, we will wait for the repeat cystoscopy and TURBT findings -Ordered repeat CT scans to be done next month -He scheduled for a repeat MRI pelvis to be done in September 2024 -Ordered labs today including CBC CMP ferritin iron studies CEA -Seen by the radiation oncologist () here today -All his questions answered in detail -Follow-up in [address] Jeremie Coyne [address] [facility] [address] thank you for allowing me to participate in Brian Oneal [facility], if there are any questions or concerns please do not hesitate to contact me at the number below. I spent a total of 60 minutes on the date of the service which included preparing to see the patient, [id number] patient care, completing clinical documentation, obtaining and/or reviewing separately obtained history, performing a medically appropriate examination, counseling and educating the patient/family/caregiver, ordering medications, tests, or procedures, communicating with other HCPs (not separately reported), independently interpreting results (not separately reported), communicating results to the patient/family/caregiver, and care coordination (not separately reported). Fred Gonzalez MD. Hematology/Medical Oncology [place] [phone] CC: documented in this encounter [facility] 07-30-2024 Note [facility] 07-30-2024 Instructions Fred Gonzalez MD - 07/30/2024 2:43 PM EDT Ordered labs Ordered scans F/u in 4 weeks. documented in this encounter [facility] 07-30-2024 Nurse Note Pacemaker/Defibrillator?Yes-Info scanned into [employer] and in Epic Previous Cancer(s)?Prostate Cancer Previous Radiation? EBRT with brachy boost Lupus/Scleroderma? N On body monitoring device?N [facility] 07-30-2024 Nurse Note Pacemaker/Defibrillator?Yes-Info scanned into [facility] and in Epic Previous Cancer(s)?Prostate Cancer Previous Radiation? EBRT with brachy boost Lupus/Scleroderma? N On body monitoring device?N documented in this encounter [facility] 07-29-2024 Note [facility] 07-29-2024 History of Present illness Narrative I spent a total of 30 minutes on the date of the service which included preparing to see the patient, [id number] patient care, and completing clinical documentation. I have reviewed the progress note obtained and documented by Dr. Morgan and I personally participated in the lambert components of care. The following comments revise or confirm relevant lambert components of the note. This visit is a virtual telephone encounter. It required patient-provider interaction for the medical decision making as documented below. I have communicated my name and active licensure. The patient s identity and physical location were verified at the time of this visit. Either the patient or their legal area representative has been informed of the risks and benefits of -- and alternatives to -- treatment through a remote evaluation and consents to proceed with the evaluation remotely. Patient is overall doing well with no new complaints since I last saw him. Patient was seen by urology and cystoscopy was performed. Cystoscopy confirmed multifocal tumors on the dome of the bladder. He requires TURBT in the coming weeks. Colorectal surgery has recommended that we complete evaluation/staging of the bladder issue prior to re-irradiation with xeloda for the rectal cancer. The patient also needs repeat colonoscopy with Dr. Avina from colorectal surgery to clear some polyps that were left. The patient was seen by cardiology today back home and it appears they are very pleased with his cardiac status. They have cleared him to drive again. He is out of the senior living. Understandably this is a very overwhelming time for the patient. The patient is scheduled to see radiation oncology and medical oncology in [place] so that they are ready to go when we have come up with a definitive plan. We are awaiting scheduling for repeat cystoscopy with TURBT. Jeremie Coyne MD DIAGNOSIS: low rectal carcinoma diagnosed June 05, 2024 BIOMARKERS: Initial CEA -3 Extended LENORA Mutation Status - [] BRAF - [] Microsatelite Status - low probability Mismatch Repair IHC - proficient DPYD - normal metabolizer UGT1A1 - UGT1A1 Intermediate Metabolizer STAGE (AJCC 8): [id number] (MRI without IV Contrast) - Stage IIA PRIOR THERAPY: None CURRENT THERAPY: Pending NUMBER OF PLANNED CYCLES: [] SPECIAL MEDICAL ISSUES: 1. Indeterminate pulmonary nodule CT scan June 13, 2024 2. 1.5 cm sessile polypoid bladder mass concerning for neoplasm CT abdomen pelvis June 13, [address] Abdomen June 05, 2024 outside read 0.8 cm hypoattenuating lesion within the pancreatic head likely cystic in nature, nonemergent MRCP can be considered for further evaluation. 4. History of Brachy/EBRT for prostate cancer HISTORY OF PRESENT ILLNESS: Patient developed afib March 2024 and underwent cath that showed triple vessel disease. He was started on eliquis for afib and was planning for CABG but started having bloody stools once started on eliquis. He underwent colonoscopy May 2024 that was concerning for rectal mass. Biopsy showed adenocarcinoma. He underwent CABG 06/18/24. In staging his rectal cancer, he had scans that showed a bladder mass concerning for bladder cancer as well. Underwent sigmoidoscopy 07/22/24 with Rectal mass 3 to 4 cm from the anal verge. Mass ~1/3rd circumference in the left anterior position. Fixed at top of sphincter Cytoscopy on 07/22/24 with atypical urothelial cells planning for TURBT INTERVAL EVENTS: Says he's doing well. Has been released from the SNF and doing well. He is concerned about maintaining his independence and hesitant to undergo TURBT. PAST MEDICAL HISTORY: As noted above History of atrial fibrillation Sick sinus syndrome status post pacemaker placement Obstructive sleep apnea CKD 3 PAST SURGICAL HISTORY: As noted above CABG x 3 Maze procedure Right atrial pacer lead Left atrial appendage closure ALLERGIES: Reviewed and updated in the electronic medical record MEDICATIONS: Reviewed and updated in the electronic medical record SOCIAL HISTORY: Tobbacco: [] Alcohol:[] Employment: [] FAMILY HISTORY: Mother breast cancer Sister thyroid cancer Sister lung cancer REVIEW OF SYSTEMS: Otherwise negative beyond that noted in history present illness x 10 systems PHYSICAL EXAM: - Phone encounter; unable to perform LABORATORIES: ASSESSMENT/PLAN: Rectal Adenocarcinoma He was seen by urology and will need TURBT. Multidisciplinary team feels that should be done prior to chemotherapy and radiation to the rectal tumor.We encouraged him to get this done. Per rad on,he is a candidate for further radiation despite his previous radiation to the prostate. The patient would like to receive his care closer to home. Referral was sent to radiation oncology and medical oncology in [place] which he is scheduled to see this week. Lorelei Morgan MD Hematology/Oncology Fellow documented in this encounter [facility] 07-29-2024 Note [facility] 07-29-2024 Telephone encounter Note Patient has an appt on 07/30. Would you like labs? [facility] 07-29-2024 Miscellaneous Notes Patient has an appt on 07/30. Would you like labs? documented in this encounter [facility] 07-29-2024 Telephone encounter Note Images from the original note were not included. [facility] Phone Encounter DATE of SERVICE: 07/29/2024 TIME of SERVICE: 10:56 AM Status: [facility] Service/Provider: Cardiac Surgery Masood Wilder M.D. Reason for call: Incisions Contact information: Brian Oneal [phone] Resolution: Other - treatment at local [place] [facility] office Comments: Faye from [place] cardiology called to say they have a concern about Brian Oneal's leg incision. Faye said she is calling to ask if it is ok for them to treat it. I explained the patient is welcome to return to follow up with [facility] but it is fine and would be more convenient for the patient if they are able to treat it. Rena Murphy RN Date of Resolution: 07/29/2024 Time of Resolution 10:56 AM [facility] 07-29-2024 Miscellaneous Notes Images from the original note were not included. [facility] Phone Encounter DATE of SERVICE: 07/29/2024 TIME of SERVICE: 10:56 AM Status: FYI Service/Provider: Cardiac Surgery Masood Wilder M.D. Reason for call: Incisions Contact information: Brian Oneal [phone] Resolution: Other - treatment at local [place] [facility] office Comments: Faye from [place] [facility]ology called to say they have a concern about Brian Oneal's leg incision. Faye said she is calling to ask if it is ok for them to treat it. I explained the patient is welcome to return to follow up with [facility] but it is fine and would be more convenient for the patient if they are able to treat it. Rena Murphy RN Date of Resolution: 07/29/2024 Time of Resolution 10:56 AM documented in this encounter [facility] 07-29-2024 Note *Okay to drive from cardiology standpoint. *Will send referral to cardiac rehab. *Monitor your blood pressure 2 hours after morning medications. We will call you in 2 weeks for readings. *We will let you know what [facility] says about your right leg wound. [facility] 07-29-2024 Note Patient here for fol low up CABG at [facility]. Doing very well s/p CABG. Has some swelling in his RLE from vein harvest. He states it looks much better and did have huge water blisters on it. Review of Systems Cardiovascular: Positive for leg swelling. Respiratory: Positive for shortness of breath (bendopnea). Hematologic/Lymphatic: Bruises/bleeds easily. Skin: Positive for color change. All other systems reviewed and are negative. [facility] 07-29-2024 Note Cardiovascular Medic [facility] SUBJECTIVE Chief Complaint Patient presents with Coronary Artery Disease Brian Oneal is a 74 y.o. male here for follow-up after his recent CABG x3. HPI PMHx: CAD S/P on 06/18/2024 CABGx3 (WREN-LAD, SVG-OM1, SVG-PDA), MAZE, LAAC, Right atrial Pacer lead, chronic a.fib, CKD III, SSS s/p PPM, PVD, HLD, HTN 07/29/2024 He recently underwent a CABG at [facility]. He was discharged from rehab yesterday. Post op, he did develop issues with swelling and blisters in his right lower leg around his graft harvest site. He was on an abx for a period of time from CT sx and these have been completed. He still has some swelling and redness. He has some mild chest discomfort/tightness in various positions. Denies c/o dyspnea, orthopnea, PND, dizziness/LH, palpitations, syncope. He was recently found to have a rectal cancer. He plans to undergo chemo/radiation. They also saw a bladder mass that he is following up with urology. Patient Active Problem List Diagnosis Chest pain Edema of lower extremity Syncope Cardiac device in situ Sick sinus syndrome (CMS/HCC) Severe claudication (CMS/HCC) Essential (primary) hypertension Nicotine dependence Obstructive sleep apnea of child Atrial fibrillation (CMS/HCC) Pneumonia Abnormal stress test Anemia Triple vessel coronary artery disease Rectal mass ABLA (acute blood loss anemia) Atelectasis Chronic anticoagulation CKD (chronic kidney disease) stage 3, GFR 30-59 ml/min ([facility]) Encounter for support and coordination of transition of care Hypervolemia Hyperlipidemia Stress hyperglycemia RVF (right ventricular failure) (CMS/HCC) Rectal cancer (CMS/HCC) Postoperative pain Obesity, Class II, BMI 35-39.9 Obesity, Class I, BMI 30-34.9 Atrial fibrillation, chronic (CMS/HCC) Pacemaker Tight chest Hypertension TEJ (obstructive sleep apnea) Coronary artery disease Past Medical History: Diagnosis Date Abnormal ECG Arrhythmia Atrial fibrillation (CMS/HCC) Cancer ([facility]/HCC) Coronary artery disease Hypertension Sick sinus syndrome ([facility]/HCC) Sinus bradycardia Sleep apnea Syncope Family History Problem Relation Name Age of Onset Coronary artery disease Mother Social History Tobacco Use Smoking status: Former Packs/day: 1 Types: Cigarettes Substance Use Topics Alcohol use: Not Currently Allergies Allergen Reactions Azithromycin Other Pt states he started having bloody stools after taking azithromycin ROS Cardiovascular: Positive for leg swelling. Respiratory: Positive for shortness of breath (bendopnea). Hematologic/Lymphatic: Bruises/bleeds easily. Skin: Positive for color change. All other systems reviewed and are negative. OBJECTIVE Visit Vitals BP 150/86 (BP Location: Left arm, Patient Position: Sitting) Pulse 74 Ht 1.727 m (5' 8 ) Wt 98.4 kg (217 lb) SpO2 94% BMI 32.99 kg/m??? Smoking Status Former BSA 2.17 m??? Medications: Current Outpatient Medications: aspirin 81 mg EC tablet, Take 81 mg by mouth in the morning., Disp: , Rfl: atorvastatin (Lipitor) 40 mg tablet, Take 1 tablet (40 mg) by mouth at bedtime., Disp: 90 tablet, Rfl: 3 cholecalciferol (Vitamin D-3) 25 MCG (1000 units) tablet, Take 1,000 Units by mouth in the morning., Disp: , Rfl: loratadine (Claritin) 10 mg tablet, Take 10 mg by mouth in the morning., Disp: , Rfl: metoprolol tartrate (Lopressor) 25 mg tablet, Take 25 mg by mouth twice a day., Disp: , Rfl: doxycycline (Vibra-Tabs) 100 mg tablet, Take 1 tablet (100 mg) by mouth two times daily for 10 days. Take with a full glass of water and do not lie down for at least 30 minutes after., Disp: 20 tablet, Rfl: 0 Physical Exam Constitutional: Appearance: Normal appearance. He is obese. HENT: Head: Normocephalic and atraumatic. Right Ear: External ear normal. Left Ear: External ear normal. Eyes: Extraocular Movements: Extraocular movements intact. Pupils: Pupils are equal, round, and reactive to light. Neck: Vascular: No carotid bruit. Cardiovascular: Rate and Rhythm: Normal rate and regular rhythm. Pulses: Normal pulses. Heart sounds: Normal heart sounds. Pulmonary: Effort: Pulmonary effort is normal. Comments: Clear upper and RLL, diminished left lower lobe Abdominal: General: Bowel sounds are normal. Palpations: Abdomen is soft. Musculoskeletal: General: Normal range of motion. Cervical back: Neck supple. Right lower leg: Edema (+1-2 edema with scattered erythema and calor - see media for image) present. Left lower leg: No edema. Skin: General: Skin is warm and dry. Comments: Midsternal incision healing well and without s/s of infection Neurological: General: No focal deficit present. Mental Status: He is alert and oriented to person, place, and time. Psychiatric: Mood and Affect: Mood normal. Behavior: Behavior normal. Thought Content: Thought (more content not included)... [facility] 07-28-[address] Coyne's completed consult note faxed as requested. Confirmation receipt received. Brianna Grullon RN, BSN Specialty 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 July 28, 2024 [facility] 07-28-[address] Coyne's completed consult note faxed as requested. Confirmation receipt received. Brianna Grullon RN, BSN Specialty 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 July 28, 2024 CATRACHITO Jimenez from [facility] is requesting office notes from yesterday's Jul [address] Coyne and Dr. Earl. The fax number is [phone]. Patient has been identified by name and birthdate. Duration of symptoms: N/A Requesting response back: She can be reached at [phone] if needed. [phone] (home) Ha Henley July 23, 2024 documented in this encounter [facility] 07-23-2024 Telephone encounter Note CATRACHITO Jimenez from [facility] is requesting office notes from yesterday's Jul [address] Coyne and Dr. Earl. The fax number is [phone]. Patient has been identified by name and birthdate. Duration of symptoms: N/A Requesting response back: She can be reached at [phone] if needed. [phone] (home) Ha Henley July 23, 2024 [facility] 07-22-2024 Nurse Note Reviewed and confirmed with patient that there were no changes in the the nursing assessment and vitals that were completed on 07/22/2024 during previous provider appointment. Jihan Rahman RN [facility] 07-22-2024 Nurse Note Reviewed and confirmed with patient that there were no changes in the the nursing assessment and vitals that were completed on 07/22/2024 during previous provider appointment. Jihan Rahman RN documented in this encounter [facility] 07-22-2024 History of Present illness Narrative DIAGNOSIS: Rectal adenocarcinoma STAGE (AJCC 8): [id number]: stage II BIOMARKERS: Initial CEA: 3 MMR: proficient Low likelihood of MSI DPYD UGT1A1 PRIOR THERAPY: Brachytherapy for prostate cancer ~2009 CURRENT THERAPY: To be determined NUMBER OF PLANNED CYCLES: SPECIAL MEDICAL ISSUES: Lung nodule Pancreatic head cystic mass PALLIATIVE CARE PROVIDER: [] HPI: Mr. Oneal is a 74 year old male with extensive cardiac hx including SSS s/p pacemaker, afib, HTN found to have a rectal mass. He developed afib at the end of March 2024 thought to be from ischemic heart disease with LHC showing triple vessel disease. He was started on eliquis April 2024 for his afib and then had noted intermitted hematochezia and BRBPR. He underwent EGD which showed erosive gastropathy with hematin throughout stomach, erosive duodenitis, and heterotopic gastric mucosa in the duodenal bulb. 06/05/24 Colonoscopy revealed scattered sessile polyps in the ascending and hepatic flexure, inverted diverticula vs polyp in the transverse colon, scattered semi-sessile polyp in the descending colon and sigmoid colon, sigmoid diverticulosis, and a rectal mass measuring 2.5 cm with endoscopic appearance highly suspicious for malignancy. Biopsy showed invasive moderately differentiated adenocarcinoma. No loss of nuclear expression of MMR protein with low probability of MSI CEA was 3. He also underwent MRI of his pelvis at the OSH but was re-read by [facility] radiology. It showed the rectal mass in the lower rectum 2.9cm from the anal verge with probably extension into the mesorectal fascia. No pelvic lymphadenopathy. CT chest with Noncalcified nodule in the left lower lobe measuring 0.[address] abdomen showed an indeterminate 1.9cm sessile polypoid bladder mass concerning for neoplasm. Also a 0.8cm hypoattenuating lesion within the pancreatic head likely cystic; consider MRCP He underwent his CABG on 06/18/24. While hospitalized, he was evaluated by [facility]. He was also presented at tumor board on 06/24 and recommendations are pending He was seen by [facility] today and underwent sigmoidoscopy showing Rectal mass 3 to 4 cm from the anal verge. Mass ~1/3rd circumference in the left anterior position. Fixed at top of sphincter. He was also seen by urology and underwent cystoscopy today that was concerning for neoplasm. Cytology is pending. 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 PHYSICAL EXAM: There were no vitals taken for this visit. Alert and oriented x 3 Good breath sounds bilaterally without rhonchi rales or wheezing Heart is regular rate and rhythm Abdomen nondistended Gait within normal limits LABORATORES: Reviewed ASSESSMENT/PLAN: Rectal Adenocarcinoma He expressed that he was surprised with the diagnosis of rectal cancer. - underwent MRI pelvis, CT chest and abdomen - CEA 3 - saw [facility] 07/22 and underwent sigmoidoscopy mass 3 to 4 cm from the anal verge. Fixed at top of sphincter. - Will plan to present at tumor board on Saturday regarding further treatment. Patient from [facility] so wants to follow up closer to home. We will place referrals to [place] 2. Bladder Mass - following with urology - underwent cystoscopy 07/22 - awaiting cytology Lorelei Morgan MD Hematology/Oncology Fellow Consultation requested by MICHA Oconnor for an opinion regarding cancer. My final recommendations will be communicated back to the requesting physician by way of shared Medical record or letter to requesting physician via US mail. I spent a total of 60 minutes on the date of the service which included preparing to see the patient and [id number] patient care. I have reviewed the progress note obtained and documented by Dr. Morgan and I personally participated in the lambert components of care. The following comments revise or confirm relevant lambert components of the note. NEW PATIENT EVALUATION REASON FOR EVALUATION: Request for medical oncology opinion by Dr. Avina for CRC DIAGNOSIS: low rectal carcinoma diagnosed June 05, 2024 BIOMARKERS: Initial CEA -3 Extended LENORA Mutation Status - [] BRAF - [] Microsatelite Status - [] Mismatch Repair IHC - [] DPYD - [] UGT1A1 - [] STAGE (AJCC 8): [id number] (MRI without IV Contrast) - Stage IIA PRIOR THERAPY: None CURRENT THERAPY: Pending NUMBER OF PLANNED CYCLES: [] SPECIAL MEDICAL ISSUES: 1. Indeterminate pulmonary nodule CT scan June 13, 2024 2. 1.5 cm sessile polypoid bladder mass concerning for neoplasm CT abdomen pelvis June 13, [address] Abdomen June 05, 2024 outside read 0.8 cm hypoattenuating lesion within the pancreatic head likely cystic in nature, nonemergent MRCP can be considered for further evaluation. 4. History of Brachy/EBRT for prostate cancer HISTORY OF PRESENT ILLNESS: The patient's course began when he developed atrial fibrillation the end of March 2024. The patient was admitted from June 11, 2024 through June 26, 20[facility] at [facility]. He was initially admitted to [facility] on June 04, 2024 for planned heart catheterization. This showed significant coronary artery disease CABG was recommended. During the hospitalization he had bloody stool since Eliquis was started in April and GI was consulted. 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 Colonoscopy on June 05, 2024 showed scattered sessile polyps in the ascending colon and hepatic flexure, inverted diverticula versus polyp in the transverse colon, scattered semisessile polyp in the descending colon and sigmoid colon, and a rectal mass measuring 2.5 cm suspicious for malignancy. I do not have primary data/colonoscopy report. It is not clear that a biopsy was performed. The patient was transferred to [facility] for further evaluation. Echocardiogram showed ejection fraction of 55%. He was started on heparin and aspirin. The patient was taken to the operating room on June 18, 2024 for CABG x 3. Maze procedure RUSS clip and right atrial pacer lead performed Imaging has included: CT scan of the chest with contrast June 05, 2024 and reviewed by [facility] radiology showing indeterminate subcentimeter pulmonary nodules. No prior imaging for review. Interstitial lung abnormalities noted. Clinical and PFT correlation recommended. CT scan abdomen and pelvis with contrast June 05, 2024 and reviewed by [facility] radiology shows a 1.5 cm sessile polypoid bladder mass concerning for neoplasm. The rectal mass seen on MRI is not identifiable. MRI of the pelvis without contrast June 09, 2024 reviewed by [facility] radiology shows a 2.4 cm mass penetrating less than 1 mm beyond muscularis propria probably T3a in the low rectum with probable extension into the mesorectal fat abutting the internal sphincter without lymph node involvement. Prostatic brachytherapy seeds are noted. 1 point centimeter anterior bladder wall lesion with restricted diffusion. Of note the patient is status post radiation to the prostate. During the hospitalization the patient was evaluated by colorectal surgery. Sigmoidoscopy was performed showing a rectal mass 3 to 4 cm from the anal verge approximately one third the circumference of the left anterior position. The tumor is fixed at the top of the sphincter. PAST MEDICAL HISTORY: As noted above History of atrial fibrillation Sick sinus syndrome status post pacemaker placement Obstructive sleep apnea CKD 3 PAST SURGICAL HISTORY: As noted above CABG x 3 Maze procedure Right atrial pacer lead Left atrial appendage closure ALLERGIES: Reviewed and updated in the electronic medical record MEDICATIONS: Reviewed and updated in the electronic medical record SOCIAL HISTORY: Tobbacco: [] Alcohol:[] Employment: [] FAMILY HISTORY: Mother breast cancer Sister thyroid cancer Sister lung cancer REVIEW OF SYSTEMS: Otherwise negative beyond that noted in history present illness x 10 systems PHYSICAL EXAM: Per Dr. Morgan LABORATORIES: ASSESSMENT/PLAN: Patient has adenocarcinoma of the low rectum with no evidence of metastatic disease. He is status post CABG just 6 to 8 weeks ago. Overall the patient's performance status is good and he is recovering from his surgery. Imaging also shows what looks like bladder cancer. He was seen by urology today and will need TURBT. Multidisciplinary team feels that should be done prior to chemotherapy and radiation to the rectal tumor. I have discussed the case with radiation oncology. It does appear that he is a candidate for further radiation despite his previous radiation to the prostate. The patient would like to receive his care closer to home. I will refer him to radiation oncology and medical oncology in [place]. Jeremie Coyne MD documented in this encounter [facility] 07-22-2024 Note [facility] 07-22-2024 [facility] 07-22-2024 Note [facility] 07-22-2024 History of Present illness Narrative Radiation Oncology - New Patient/Consult Note PATIENT NAME: Brian Oneal PATIENT REQUESTING PROVIDER: Dr. Micha Avina. DIAGNOSIS: 74 y/o M with h/o prostate cancer previously treated with pelvic RT and LDR brachytherapy seed implant in [place] (2009), now with [id number] invasive adenocarcinoma of the low rectum with threatened MRF and invasion/abutment of the anal sphincter. Also recently underwent CABG x 3v and with bladder neoplasm requiring TURBT. Cancer Staging No matching staging information was found for the patient. HPI: 74 year old male who presents with above diagnosis, for an opinion regarding the role of radiation therapy in the management of the patient's disease. Final recommendations will be communicated back to the requesting physician by way of the shared medical record, or letter to requesting physician via US mail. Mr. Oneal's oncologic history dates back to 2009 when he was initially diagnosed with prostate cancer. Per his report, he was treated at [facility] in [place] with Dr. Piedra using a combination of LDR brachytherapy seed implant and pelvic XRT (details not in [facility] for review). He has done well from a prostate cancer standpoint, but more recently presented to the [facility] for a planned cardiac catheterization on 06/04/2024. At that time, he was found to have anemia and underwent EGD and colonoscopy on 06/05/2024. EGD was negative, but colonoscopy showed a mass in the rectum that was bx-proven invasive adenocarcinoma. He was transferred to [facility] and underwent CABG x 3v on 06/18/2024. He was also seen by colorectal surgery during his initial admission and underwent staging workup for his rectal cancer with the decision made to defer treatment until after cardiac surgery. He now presents for re-evaluation after recovering from surgery, including a stay at a SNF for fluid retention and wound issues in his legs. 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 He was initially unaware of his cancer diagnosis in the rectum until I showed him his pathology report and was adamantly against a colostomy bag, although we discussed that he would be able to do his activities even with a bag, if he did need one for his rectal cancer treatment. He is not particularly symptomatic from his rectal cancer, noting normal bowel movements and no evidence of blood in his stool. In addition, he underwent a cystoscopy with Dr. 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 Pathology (06/05/2024): FINAL DIAGNOSIS [facility], [place], [place]; [id number] (06/05/2024) 1. Stomach, biopsy (A): - Gastric oxyntic and antral mucosa with mild reactive epithelial changes and focal mild chronic inflammation. - No definitive morphologic evidence of Helicobacter pylori organisms. 2. Colon, transverse, polyp, biopsy (B): - Hyperplastic polyp. 3. Rectum, mass, biopsy (C): - Invasive moderately differentiated adenocarcinoma. MRI Pelvis - [facility] Overread (06/09/2024): IMPRESSION: Suboptimal imaging parameters. 2.4 cm low rectal neoplasm with probable extension into the mesorectal fat. No pelvic lymphadenopathy. Anterior bladder wall lesion. Further evaluation with cystoscopy recommended. Stage: T3a N0 MRF: Clear (tumor margin >2 mm from MRF) Sphincter involvement: Abutment of the internal sphincter Suspicious extra mesorectal lymph nodes: No. EMVI: No. CT Chest (06/05/2024): IMPRESSION: 1. Indeterminate subcentimeter sized pulmonary nodules. Comparison with prior studies if available, otherwise follow-up CT as per clinical protocol is suggested to ensure stability in this patient with rectal mass. 2. Mildly enlarged RIGHT infrahilar lymph node. 3. Interstitial lung abnormalities. Clinical and PFT correlation is recommended. CT Abdomen/Pelvis (06/05/2024): IMPRESSION: The rectal mass is not identified on CT, the outside pelvic MR will be reported separately. 1.5 cm sessile polypoid BLADDER MASS concerning for neoplasm, urological referral and correlation with cystoscopy recommended. No lymphadenopathy or other potential metastatic disease in the abdomen or pelvis. ALLERGIES Allergen Reactions Azithromycin Other: See Comments, GI Upset Pt states he started having bloody stools after taking azithromycin Current Outpatient Medications on File Prior to Visit Medication Sig torsemide (DEMADEX) 20 mg tablet Take 1 tablet by mouth once daily. Rx called to SNF potassium chloride (KLOR-CON 10) 10 mEq tablet Take 1 tablet by mouth once daily. Rx called to SNF cholecalciferol (VITAMIN D) 1,000 unit tab tablet Take 1,000 Units by mouth once daily. loratadine (CLARITIN) 10 mg tablet Take 10 mg by mouth once daily. acetaminophen (TYLENOL EXTRA STRENGTH) 500 mg tablet Take 1,000 mg by mouth every 8 hours as needed. metoprolol tartrate, short acting, (LOPRESSOR) 25 mg tablet Take 1 tablet by mouth every 12 hours. aspirin 81 mg chewable tablet Take 1 tablet by mouth once daily. bisacodyl (DULCOLAX) 10 mg supp 1 Suppository by RECTAL route once daily as needed for constipation. heparin 5,000 unit/mL injection Inject 1 mL subcutaneously every 12 hours. For DVT prophylaxis until ambulatory (Patient not taking: Reported on 07/22/2024) pantoprazole DR (PROTONIX) 20 mg tablet Take 1 tablet by mouth daily at 6 am for 14 days. polyethylene glycol 3350 17 gram packet Take 1 Packet by mouth once daily as needed for constipation. Dissolve dose in 4 - 8 ounces of liquid and take as directed. gabapentin (NEURONTIN) 600 mg tablet Take 0.5 tablets by mouth every 12 hours for 30 days. atorvastatin (LIPITOR) 40 mg tablet Take 40 mg by mouth daily at bedtime. No current facility-administered medications on file prior to visit. PAST MEDICAL HISTORY Diagnosis Date A-fib (HCC) CAD (coronary artery disease) CKD (chronic kidney disease) HTN (hypertension) TEJ (obstructive sleep apnea) Pacemaker Prostate cancer (HCC) Rectal cancer (HCC) Sick sinus syndrome (HCC) Prior radiation therapy, collagen vascular disease, or inflammatory bowel disease: Yes, see HPI above Any implanted or external electric devices? No status: Patient is male. PAST SURGICAL HISTORY Procedure Laterality Date COLONOSCOPY 06/05/2024 PAST SURGICAL HISTORY OF left heart cath PAST SURGICAL HISTORY OF 06/18/2024 06/18/2024 CABGx3 (WREN-LAD, SVG-OM1, SVG-PDA), MAZE, LAAC, Right atrial Pacer lead No family history on file. Social History Tobacco Use Smoking status: Former Types: Cigarettes Smokeless tobacco: Never Residence: [place], [place] Occupation: Retired COMPLETE REVIEW OF SYSTEMS: All other ROS: negative As noted in HPI PHYSICAL EXAM: VS: BP 150/79 (BP Site: Left Arm, BP Position: Sitting, BP Cuff Size: Regular Adult) Pulse 67 Temp 36.3 C (97.3 F) (Temporal) Resp 18 Ht 166.9 cm (5' 5.71 ) Wt 95.2 kg (209 lb 14.1 oz) SpO2 98% BMI 34.18 kg/m Is the patient having any pain? No 0 on a scale of 0 to 10 KPS: 70 General Appearance: Alert and oriented. No acute distress. HEENT: NCAT. Sclera anicteric. PERRL. EOMI. Chest: No respiratory distress. Neuro: Speech fluent.No focal deficits. Rest of the exam deferred at this time. RADIOLOGY/LABORATORY DATA: see HPI ASSESSMENT AND PLAN: In summary, Mr. Oneal is a 74 y/o M with h/o prostate cancer previously treated with pelvic RT and LDR brachytherapy seed implant in [place] (2009), now with [id number] invasive adenocarcinoma of the low rectum with threatened MRF and invasion/abutment of the anal sphincter. Also recently underwent CABG x 3v and with bladder neoplasm requiring TURBT. I had a long discussion with Mr. Oneal reviewing his history, pathology, and imaging findings and explaining his staging to the patient and his friend I then explained the treatment paradigm for locally advanced rectal cancer with total neoadjuvant therapy including chemo-radiation therapy to the pelvis over 5 weeks followed by restaging with MRI/scope and, if good response, consolidation chemotherapy x 4 months. After completion of VANDANA, we would re-stage with CT C/A/P, MRI rectum, and scope and then, depending on response, discuss surgery versus watchful waiting. I explained the role of radiation therapy to help with downstaging of the tumor and to decrease the risk of local recurrence. I also explained that given the extent of tumor involvement, if she is deemed a surgical candidate, it would be an APR with permanent colostomy. I explained that given his prior pelvic radiation, it would be reasonable to consider another course of treatment given his threatened MRF, but I would plan to just treat the tumor + margin using IMRT with concurrent chemotherapy. I explained the risks, benefits, alternative treatment options, logistics, equipment, personnel, and potential acute and late side effects of treatment. Mr. Oneal and his friend had the opportunity to ask questions, which I answered to their satisfaction. They will also be seeing Dr. Avina and Dr. Coyne later today. He would like to receive any chemo and radiation in [place]. At the end of our visit, she was given my contact information and encouraged to call with any questions or concerns that may arise. Signed by: Sangeetha Earl MD cc: Elliot Decker [address] [place] [address] Micha Avina [address] [place] [id number] Jeremie Coyne [facility] Noah Harrison [facility] documented in this encounter [facility] 07-22-2024 History of Present illness Narrative COLORECTAL SURGERY New Patient Visit July 22, 2024 Chief Complaint: Rectal Cancer (Invasive moderately differentiated adenocarcinoma) History of Present Illness: Brian Oneal is a 74 year old year old male being seen following hospital discharge regarding rectal cancer. Pathology shows invasive moderately differentiated adenocarcinoma, Stage:T3a N0, thought to be T3b with threatened MRF margin on review and invasion/abutment of anal sphincter. Patient initially presented to [facility] for a planned heart catheterization on 06/04/24. PMH includes sick sinus syndrome s/p pacemaker, A-fib, HTN, TEJ. The patient presents today after undergoing CABG for discussion of rectal cancer care. Reviewed patient course to date. He states that he is doing well from his surgical recovery standpoint. He is ambulating. He is having bms without issue and denies abdominal pain. He denies blood in stool. He denies chest pain or shortness of breath at this time. He reports his last colonoscopy in 05/2024 and previous to this he had colonoscopy ~6 years prior with normal findings. His only previous abdominal surgery was appendectomy. He reports a history of prostate ca that was treated with radiation and prostate seeds in 2009. He reports he is unable to get an erection at this time and hasn't since his prostate cancer treatment. He saw Dr. Earl earlier today and will see Dr. Coyne later. He has also seen Dr. Sanchez for bladder mass lesion today as well. He reports his energy level is improving. He denies family history of CRC or other malignancy. Office Visit dated 07/03/2024 completed by Tamiko Mcduffie APRN.BDR (Cardiovascular Surgery): IMPRESSION & PLAN: Surgeon: Masood Wilder M.D S/P on 06/18/2024 CABGx3 (WREN-LAD, SVG-OM1, SVG-PDA), MAZE, LAAC, Right atrial Pacer lead CXR July 03, 2024 Image reviewed Final report Lungs and pleura: Interval improvement in left lower lung opacities. Improving pulmonary edema. Small bilateral pleural effusions are present with adjacent atelectasis, more on the left. No pneumothorax. EKG July 03, 2024 ATRIAL-PACED RHYTHM WITH PROLONGED AV CONDUCTION NONSPECIFIC INTRAVENTRICULAR BLOCK Vent. rate 71 BPM NM interval 212 ms QRS duration 126 ms QT/QTcB 394/428 ms Labs July 03, 2024 Latest Reference Range & Units 06/26/24 07:36 07/03/24 14:25 WBC 3.70 - 11.00 k/uL 10.90 8.70 RBC 4.20 - 6.00 m/uL 3.01 (L) 3.25 (L) Hemoglobin 13.0 - 17.0 g/dL 9.0 (L) 9.4 (L) Hematocrit 39.0 - 51.0 % 28.7 (L) 31.6 (L) Platelet Count 150 - 400 k/uL 233 394 (L): Data is abnormally low Latest Reference Range & Units 06/26/24 07:36 07/03/24 14:25 Sodium 136 - 144 mmol/L 139 139 Potassium 3.7 - 5.1 mmol/L 4.2 5.1 Chloride 98 - 107 mmol/L 101 104 CO2 22 - 30 mmol/L 28 25 BUN 9 - 24 mg/dL 25 (H) 22 Creatinine 0.73 - 1.22 mg/dL 1.46 (H) 1.39 (H) (H): Data is abnormally high 2. Atrial Fibrillation pre op Hx of A fib. s/p Maze and LAAC 06/18/24 Per notes w/ Dr. Wilder > hold on resuming eliquis at this time as he has RUSS clip EKG today A paced rate 71 bpm. 3. CKD3/SIVA Scr will admitted 1.38-1.8. d/c on lasix Scr today 1.39 4. FVO / Atelectasis / Pleural Effusion - post op issue requiring diuretics and d/c on lasix. - d/c wt 222 lbs, wt today 219 lbs, LE edema wing 2+ right , 1+ left - reinforced low sodium diet, 2L fluid restriction, daily wts, use incentive spirometer every hr while awake, elevate legs, wear compression stockings, continue to increase ambulation - if Scr stable will change to torsemide - Scr 1.39 improved, stop lasix and start torsemide 20 mg once daily with low dose potassium suppl. Rx called into SNF 5. SVG site right leg svg site healing with blisters noted along the cardona adjacent to the incision, also blister noted on right foot - due to FVO and 2+ right LE edema. Vaseline guaze and kerlex wrap to right leg and right foot wound care daily to right leg at [facility] - pt should have HHC once d/c from [facility] pt to start bactrim and order sent to [facility] in [place], [place] pt advised that he needs to return to see me for assessment of right svg wound Summary: Follow up with PCP next week Follow up with district leader in 4-6 weeks. Call [facility] OPD with any issues, concerns or worsening symptoms. Post op care and discharge orders reviewed with the patient- all questions were answered. Surgical sites healing without complication Discussed new medications, dosage, route of administration and side effects Reviewed walking program at home Reviewed diet guidelines for recovery from surgery Return to the clinic prn with signs or symptoms of infection, fevers, SOB, or pleural effusion SBE prophylaxis reviewed Discussed wound care Tumor Board dated 06/24/2024: In Process Hospital Admission dated 06/11/2024-06/26/2024: This is a 74 year old male who initially presented to [facility] for a planned heart catheterization on 06/04/24. PMH includes sick sinus syndrome s/p pacemaker, A-fib, HTN, TEJ. Per OSH records, during the most recent hospitalization GI was consulted for bloody stool. Patient reported intermittent hematochezia and BRBPR since starting Eliquis in April. 06/05/24 EGD demonstrated erosive gastropathy with hematin throughout stomach, erosive duodenitis, and heterotopic gastric mucosa in the duodenal bulb. 06/05/24 Colonoscopy revealed scattered sessile polyps in the ascending and hepatic flexure, inverted diverticula vs polyp in the transverse colon, scattered semi-sessile polyp in the descending colon and sigmoid colon, sigmoid diverticulosis, and a rectal mass measuring 2.5 cm with endoscopic appearance highly suspicious for malignancy. He developed A-fib towards the end of March beginning of April, had a left heart cath showed three-vessel disease and was recommended to have bypass. He was also started on Eliquis. After starting Eliquis he developed bright red bleeding per rectum. He had a colonoscopy he on 06/05 that showed a lower rectal mass biopsy showed invasive adenocarcinoma. CEA was 3. CT surgery initially planned for bypass on 06/08. However, in light of the rectal mass, plan for CABG was deferred. Decision was made to transfer the patient to [facility] for further management. He has received prior pelvic radiation for prostate cancer. He has reported unintentional weight loss of 25 to 30 pounds. Operations during Hospitalization: 06/18/2024 CABGx3 (WREN-LAD, SVG-OM1, SVG-PDA), MAZE, LAAC, Right atrial Pacer lead Hospital Course: * How was the Reason for Hospitalization Addressed: Indication for Surgery: CAD Admit 06/11/24 Preop LVEF: 55% RVF: Normal Cards: EKG: A paced, underlying SB 50s per device check Postop LVEF: Nml RVF: Low nml ( on epi) PMH/PSH: CAD-MVD, HTN, SSS-->s/p pacemaker, Afib (was on Apixaban), TEJ, CKD stage 3, rectal CA Preoperative Hospital Course: He was diagnosed in April with atrial fibrillation and was started on metoprolol and apixaban. He underwent a stress test that was abnormal therefore he underwent a LHC on 06/04 that showed MV CAD. He reported rectal bleeding and underwent an EGD/Colonoscopy that showed a new rectal mass demonstrating adenocarcinoma. He was transferred to [facility] for further evaluation. He was initially admitted to the colorectal service. Colorectal determined stage II rectal CA with abutment of the mesorectal fascia, no evidence of metastatic disease. CORS recommended outpatient work up. Cardiothoracic Surgery was consulted for known MVD. Cardiology was consulted and recommended echocardiogram that showed an ejection fraction of 55%. He was started on a Heparin infusion. He was transferred to the [facility] service on 06/15. He was started on aspirin. Airway Difficulty: Grade I - George Pacing Wires: X4 Ventricular wires (pull) Surgeries and Major Events: 06/18/2024: CABGx3 (WREN-LAD, SVG-OM1, SVG-PDA), MAZE, RUSS Clip (35), Right atrial Pacer lead A/P of Major Active Problems: Transferred to [facility] on 06/21/24 Neuro: Post op pain: S/p pecs block 06/20/2024. States pain is controled. Continue PRN Tylenol/Oxycodone/Ultram. Cardiac: Sick sinus syndrome s/p pacemaker: intra-op issues with intrinsic PPM, right atrial lead placed and connected. 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 Continue DDD pacing @ 100bpm. No RA intrinsic with rare slow ventricular escape beats. Postop device check 06/22 Base rate restored to 60bpm from 100bpm . Discussed w/ EP 06/25 (Dr. Galvan), post op device check is adequate Afib: (Apixaban- last dose 06/12, metoprolol) developed afib in April. Per discussion w/ Dr. Wilder, hold on resuming eliquis at this time as he has RUSS clip. HTN: (imdur and metoprolol). Resumed BB, also on laisx. BP is controlled CAD-s/p CABG: ASA/BB/Statin resumed. LFT's WNL Cardiac insufficiency post cardiac surgery: RV failure coming off CPB requiring 2 pump runs, cardiac massage, and epi post CPB. Right femoral arterial sheath placed in case of balloon pump. Weaned off Epi overnight, monitor. Pulmonary: Noted to have severe Lt lung atelectasis and increased O2 requirements after admission to CVICU. Bronch done for clearance of mucous plug (lt). Extubated the night of surgery. Now stable on room air. BPH, OOB, ambulate, PEP. CXR 06/24: Small bilateral pleural effusions with basal atelectasis. There is pulmonary vascular congestion. No pneumothorax TEJ: CPAP PRN and HS Renal: CKD3 / SIVA: Preop Scr 1.3-1.5. Post op peak 1.86 on 06/19. Now 1.74-->1.47-->1.46 downtrending, non oliguric. Monitor renal function. Tolerating lasix Fluid status: Up 4kg, has swelling in R LE w/ SVGs contributing to weight, mild swelling in LLE. Continue lasix GI: Rectal CA: EGD/Colonoscopy was done 06/05 which showed a new 2.5 cm rectal mass and biopsy demonstrated invasive adenocarcinoma- will need outpatient work up. Per CORS--Pt with T3a N0 rectal cancer and will likely require neoadjuvant chemo radiation therapy. The tumor board recommendations will be finalized over next few days. See their note for final recs (pending) . Ok to DC from CORS stand point. Will follow up with Dr. Avina in clinic within a month. Will defer anticoagulation for afib to primary team. Ok from our stand point if no current bleeding Possible post op ileus per 06/23 KUB: Moderately dilated small bowel measuring 4-5 cm, likely ileus . Had frequent liquid stool earlier this week. Now having daily stool that is liquid. Abd is soft, nontender, denies GI complaints, +BS, tolerating diet. KUB 06/26: No dilated bowel. Resolution of prior gas-filled dilated small bowel. Per CTS, ok to proceed w/ discharge to SNF. Notified and reviewed post op findings w/ CORS console manager. Hematology: Coagulopathy: s/p OR. Required 2 platelet. Resolved, plts normalized. Acute blood loss anemia: s/p OR. Transfused 1 unit of PRBC's on 06/23. Current H&H 9.0/28.7 Endo: Stress Hyperglycemia: No DM history. Perioperative insulin resistance and exacerbation of hyperglycemia. SSI for glycemic control. DC'd accu checks Discharge: 74 yr old male who lives in [place], [place] (near [place]). PT recs SNF. CM following, bed and transport were arranged, ok to transfer today per CTS. Prefers to follow up locally d/t distance (PCP 1 week after discharge from SNF, [facility] in 4 weeks). Will f/u at for CORS--appt requested w/ Dr. Avina within a month Discharge Planning: Anticipated Discharge Date: 06/26 Barriers to Discharge: No Barriers to Discharge Care Management Discharge Needs: Needs Prior to Discharge: To Be Determined * What were the Active Issues: CAD management Atrial fibrillation s/p MAZE, RUSS clip; on metoprolol and eliquis Fluid overload resolving Rectal Cancer Work up at outside hospital for rectal bleeding included an EGD/Colonoscopy that showed a new rectal mass demonstrating adenocarcinoma. Evaluated by Colorectal Surgery who determined stage II rectal CA with abutment of the mesorectal fascia, no evidence of metastatic disease. Follow up with Colorectal Surgery within 1 month for further work up and treatment. An appointment was scheduled with Colorectal Surgery Dr. Avina at [facility] on 07/22/2024. - Scans were completed at outside facility reporting abnormality regarding the bladder, indeterminate subcentimeter sized pulmonary nodules. Further work up is to be completed by outpatient Providers CEA dated 06/11/2024: 2.7 MRI PELVIS WO CONTRAST OVERREAD dated 06/09/2024: Suboptimal imaging parameters. 2.4 cm low rectal neoplasm with probable extension into the mesorectal fat. No pelvic lymphadenopathy. Anterior bladder wall lesion. Further evaluation with cystoscopy recommended. Stage: T3a N0 MRF: Clear (tumor margin >2 mm from MRF) Sphincter involvement: Abutment of the internal sphincter Suspicious extra mesorectal lymph nodes: No. EMVI: No. CT CHEST W IVCON dated : 1. Indeterminate subcentimeter sized pulmonary nodules. Comparison with prior studies if available, otherwise follow-up CT as per clinical protocol is suggested to ensure stability in this patient with rectal mass. 2. Mildly enlarged RIGHT infrahilar lymph node. 3. Interstitial lung abnormalities. Clinical and PFT correlation is recommended. CT ABDOMEN/PELVIS W IVCON dated 06/05/2024: The rectal mass is not identified on CT, the outside pelvic MR will be reported separately. 1.5 cm sessile polypoid BLADDER MASS concerning for neoplasm, urological referral and correlation with cystoscopy recommended. No lymphadenopathy or other potential metastatic disease in the abdomen or pelvis. COLONOSCOPY dated 06/05/2024 @ [facility] (Care Everywhere): Impression: - Scattered sessile polyps in the ascending colon and hepatic flexure, not removed on today's examination - Inverted diverticula vs. Polyp noted in the transverse colon, biopsied. - Scattered semi-sessile polyp noted in the descending colon and sigmoid colon. - Sigmoid diverticulosis - Rectal mass measuring 2.5 cm, endoscopic appearance highly suspicious for malignancy. Biopsied. - External hemorrhoids. Pathology (Overread): [facility], [place], [place]; [id number] (06/05/2024) 1. Stomach, biopsy (A): - Gastric oxyntic and antral mucosa with mild reactive epithelial changes and focal mild chronic inflammation. - No definitive morphologic evidence of Helicobacter pylori organisms. 2. Colon, transverse, polyp, biopsy (B): - Hyperplastic polyp. 3. Rectum, mass, biopsy (C): - Invasive moderately differentiated adenocarcinoma. PAST MEDICAL HISTORY No date: A-fib (HCC) No date: CAD (coronary artery disease) No date: CKD (chronic kidney disease) No date: HTN (hypertension) No date: TEJ (obstructive sleep apnea) No date: Pacemaker No date: Prostate cancer (HCC) No date: Rectal cancer (HCC) No date: Sick sinus syndrome (HCC) PAST SURGICAL HISTORY 06/05/2024: COLONOSCOPY No date: PAST SURGICAL HISTORY OF Comment: left heart cath 06/18/2024: PAST SURGICAL HISTORY OF Comment: 06/18/2024 CABGx3 (WREN-LAD, SVG-OM1, SVG-PDA), MAZE, LAAC, Right atrial Pacer lead Current Outpatient Medications Medication Sig Dispense Refill aspirin 81 mg chewable tablet Take 1 tablet by mouth once daily. torsemide (DEMADEX) 20 mg tablet Take 1 tablet by mouth once daily. Rx called to SNF 10 tablet 0 potassium chloride (KLOR-CON 10) 10 mEq tablet Take 1 tablet by mouth once daily. Rx called to SNF 10 tablet 0 cholecalciferol (VITAMIN D) 1,000 unit tab tablet Take 1,000 Units by mouth once daily. loratadine (CLARITIN) 10 mg tablet Take 10 mg by mouth once daily. acetaminophen (TYLENOL EXTRA STRENGTH) 500 mg tablet Take 1,000 mg by mouth every 8 hours as needed. metoprolol tartrate, short acting, (LOPRESSOR) 25 mg tablet Take 1 tablet by mouth every 12 hours. bisacodyl (DULCOLAX) 10 mg supp 1 Suppository by RECTAL route once daily as needed for constipation. heparin 5,000 unit/mL injection Inject 1 mL subcutaneously every 12 hours. For DVT prophylaxis until ambulatory (Patient not taking: Reported on 07/22/2024) pantoprazole DR (PROTONIX) 20 mg tablet Take 1 tablet by mouth daily at 6 am for 14 days. polyethylene glycol 3350 17 gram packet Take 1 Packet by mouth once daily as needed for constipation. Dissolve dose in 4 - 8 ounces of liquid and take as directed. gabapentin (NEURONTIN) 600 mg tablet Take 0.5 tablets by mouth every 12 hours for 30 days. atorvastatin (LIPITOR) 40 mg tablet Take 40 mg by mouth daily at bedtime. No current facility-administered medications for this visit. ALLERGIES Allergen Reactions Azithromycin Other: See Comments, GI Upset Pt states he started having bloody stools after taking azithromycin Review of Systems / PACC screen: Do you have difficulty climbing a full flight of stairs without feeling short of breath? no Do you require oxygen for your breathing or have your gone to an emergency department because of breathing problems? yes then found out had afib Are you on dialysis or have you been told that your kidneys do not work well as they should? no Do have an implanted cardiac device (pacemaker, defibrillator etc.) that has not been checked in the last 6 months? yes Have you had an organ transplant? no Have you been told that you had excessive bleeding during surgical procedures or do you take blood thinning medications other than aspirin? no Have you ever had a heart attack, heart stents/surgery, valve problems, or other heart problems? yes CABG, afib, pacemaker Have you had a stroke, seizures, or unexplained loss of consciousness? yes fainting prior to pacemaker placed Do you have a neurologic condition like Parkinson's disease or multiple sclerosis? no Have you or a blood relative had a life-threatening reaction to anesthesia? no Do you have cirrhosis of the liver or other liver disease? no Have you had a blood clot within the past year? no Do you take insulin or other injections for diabetes? no Do you have sleep apnea or have you been told you may have sleep apnea? yes Do you have other implanted devices (deep brain stimulator, spinal cord stimulator, etc.)? no Physical Exam: BP 150/79 Pulse 67 Temp 36.3 C (97.3 F) Ht 166.9 cm (5' 5.71 ) Wt 94.8 kg (209 lb) SpO2 98% BMI 34.03 kg/m General Appearance: Well appearing, alert, in no acute distress, well-hydrated, well nourished. obese Lungs: unlabored, equal excursion, no use of accessory muscles of respiration Heart: RRR Edema: yes Abdomen: Normal abdominal exam, Abdomen soft, non-tender. Bowel sounds normal. No masses, organomegaly no inguinal adenopathy Anorectal: Perianal skin is intact. No erythema, induration or excoriation. No fissure, fistula or external hemorrhoids. Digital Rectal Exam: Anus: closed Resting tone: NORMAL Squeeze tone: NORMAL Clinical Product Manager present: Yes, Yoly Griffiths Flexible sigmoidoscopy: Procedure: The patient was placed in left lateral position. After digital exam with a lubricated finger, the scope was easily inserted to 20 cm. Findings: The preparation was poor. There was a 3cm mass, 4cm from the anal verge. The mass was ~1/4 to 1/3 of the left anterior rectal circumference. The mass was fixed laterally and was inseparable from the upper anal sphincter complex/anal canal. The mass was visible extending to the dentate line (see flex sig report). The remainder of the sigmoid, rectum and anal canal were entirely normal. Biopsies were not taken. Assessment Medical Decision Making: Assessment & Diagnosis: Brian Oneal is a 74 year old male s/p CABG with recent diagnosis of rectal cancer and bladder mass with a history prostate ca and previous prostate radiation. Data Reviewed: Tests & Documents Reviewed/ordered: Review of prior notes from inpatient visit, Dr. Wilder, Dr. Sanchez Review of Pathology Review of Imaging: CT Abdomen, CT Pelvis, MRI Pelvis Review of Labs: CBC, BMP, CEA Review of Procedures / Tests: Colonoscopy, cystoscopy I have independently interpreted: CT Abdomen, CT Pelvis, MRI Pelvis I have discussed Brian Oneal's treatment plan and/or results with the patient, Dr. Sanchez, Dr. Coyne, Dr. Earl. Treatment plan: Very complex patient with multiple ongoing issues. He seems to be doing well from a cardiac surgery standpoint. Per discussion with Dr. Sanchez, he will need cystoscopy for possible transurethral resection of bladder lesion. This will likely need to be done prior starting therapy for his rectal ca, but will discuss with the team. He does need a repeat colonoscopy for clearance of his colon based on the colonoscopy report from [place]. We would also like to repeat his rectal MRI due to suboptimal study per the tumor board review. We discussed the treatment and care of patients with rectal cancer including staging, treatment, the role of surgery, and potential changes to quality of life. The patient reports a strong preference for avoidance of surgery and avoidance of colostomy. Based on our review here, I would not recommend restorative protectomy in this patient given the level of tumor and abutment of sphincters on MRI along with exam demonstrating tumor at the dentate line. We discussed that with current VANDANA there is a reasonable chance of avoiding surgery, however, he may or may not be a candidate given his previous radiation. 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 I encouraged the patient to continue on with therapy and we can reassess, discuss surgery further based on his response. Will also need MMR testing on tumor and will refer to genetics given multiple malignancies. All questions answered and the patient voiced understanding. Given that the patient will undergo cystoscopy, will coordinate with Dr. Sanchez for colonoscopy if patient is willing. Would be reasonable to proceed with bladder tumor removal and repeat colonoscopy after rectal ca treatment and prior to rectal surgery if needed to get patient to therapy. Micha Avina MD Colorectal Surgery Risk of morbidity, mortality and/or complications of treatment plan: high documented in this encounter [facility] 07-22-2024 Note [facility] 07-22-2024 Nurse Note Additional intake questions: Has the patient had fever, nausea, vomiting, diarrhea, constipation, fatigue for > 1 week? Yes, fatigue and Provider Notified Does the patient have a decreased appetite? No Does patient want to see a Demand Planning Analyst? No (yes to any of above refer patient to schedulers for dietitian appointment) ) Does patient have any new or increased numbness or tingling of extremities? Yes, Left hand Is patient interested in fertility information? No Does patient need any prescription refills? No Does patient have an advanced directive in place? Yes, copies are in datapine [facility] 07-22-2024 Nurse Note Additional intake questions: Has the patient had fever, nausea, vomiting, diarrhea, constipation, fatigue for > 1 week? Yes, fatigue and Provider Notified Does the patient have a decreased appetite? No Does patient want to see a Demand Planning Analyst? No (yes to any of above refer patient to schedulers for dietitian appointment) ) Does patient have any new or increased numbness or tingling of extremities? Yes, Left hand Is patient interested in fertility information? No Does patient need any prescription refills? No Does patient have an advanced directive in place? Yes, copies are in datapine documented in this encounter [facility] 07-22-2024 History of Present illness Narrative Images from the original note were not included. 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 A time out was performed where the patient and the procedure were identified in the presence of the Nursing and Surgical Staff. Patient was placed in supine position, prepped and draped in the standard sterile fashion. Lidocaine gel was placed per urethra for local anesthesia. Cystoscopy was then performed using a 17 F flexible cystoscope. Sterile technique was maintained throughout. Please refer to above for specific findings during this part of the procedure. After carefully and atraumatically inspecting the urethra, prostate, and bladder, the bladder was emptied and the cystoscope was removed. The patient tolerated the procedure well and there were no complications. 07/22/2024 Cysto: Bladder neoplasm 06/15/2024 MRI Abd: anterior bladder wall lesion ASSESSMENT/PLAN: Bladder neoplasm, requiring TURBT. Reviewed r/b/a and post-op expectations including need for catheter. Will review with Clayton Del Rio, and [facility]. Ok to continue ASA 81 through surgery. By signing my name below, I, Radames Beaz, attest that this documentation has been prepared under the direction and in the presence of Dr. Sanchez Electronically signed, Velia Tapia STAFF PHYSICIAN NOTE OF PERSONAL INVOLVEMENT IN CARE The above noted history, physical, assessment and plan were reviewed with the provider and critical portions of the H&P were confirmed. I evaluated and examined the patient and agree with the plan above and provided direct supervision of the above provider during this patient's care. Elliott Sanchez MD UNIVERSAL PROTOCOL / SAFETY CHECKLIST Procedure to be Performed: cystoscopy Sign In: A Moment of CARE was completed. Personnel directly involved with the procedure wore the appropriate PPE (Personal Protective Equipment). No special equipment needed. Patient/Surrogate Stated/Verified: PATIENT VERIFIED(optional for EMERGENT procedures): Patient name, Date of , Relevant allergies, and The intended procedure Time Out Communication: Intended patient and procedure match the source documents. Consent documented and matches the intended procedure. Relevant labs, photos, and/or imaging studies have been reviewed. Correct side/site marked and visible. Medications required for procedure verified. Fire risk assessed and interventions discussed. No implant(s) inserted. Sign Out: SIGN OUT (optional for EMERGENT procedures): All specimen containers correctly labeled. All instruments, equipment, possible retained foreign bodies accounted for. Post-procedure follow-up management communicated and Plan of Care Visit completed when applicable. Jessica Kovacs RN documented in this encounter [facility] 07-22-2024 Note [facility] 07-22-2024 Nurse Note Actual procedure/procedure scheduled: Yes Performing provider/scheduled provider: Yes Patient was roomed in: Q9- 10 Clinical Product Manager offered:Patient declines Patient arrived in the room at: 0940 Patient ready for procedure: 0953 The procedure started at ( Time Only): 1010 The procedure ended at: 1014 Was the procedure delayed: Yes: Provider late: Provider with other patient on Q9 The patient left the procedure room at: 1037 Jessica Kovacs RN PRE PROCEDURE ASSESSMENT- Cysto Procedure Indication: Cystoscopy Latex Allergy: No Allergies reviewed and updated. Yes Pre-Procedure Vital Signs: BP: 158/74 Pulse: 76 Heart valve replacement: Yes Joint replacement: No Back Office UA otained: yes PROCEDURE PREP-Cysto Patient ID with two(2)identifiers verified by: Jessica Kovacs RN Pre-Procedure Antibiotics: None taken at home nor prior to procedure Patient Prep: Betadine Scrub to perineum and placement of Sterile Drape. COMPLETED Anesthetic Given:10 cc 2% Lidocaine jelly Jessica Kovacs RN UNIVERSAL PROTOCOL / SAFETY CHECKLIST Procedure to be performed: Cystoscopy Sign in Communication: Completed Time Out: Team Confirms the Correct Patient, Correct Procedure, Correct Site and Site Marking, Correct Position (if applicable). Sign Out Discussion: Completed Jessica Kovacs RN POST PROCEDURE NURSE ASSESSMENT Present along with physician during procedure exam. Jessica Kovacs RN Instruction sheet given and reviewed and patient verbalizes understanding: yes Current pain intensity is 0 on a 0-10 pain scale. Jessica Kovacs RN AMBULATORY PATIENT EDUCATION THE FOLLOWING WAS EVALUATED Motivation To Learn: Eager Interested Family/Significant Other Support: None - Unavailable/disinterested Cognitive Ability: Alert/Oriented Method of Instruction: Written instruction/Handouts Verbal instruction The Following Influencing Factors Were Barriers To This Education Session: None The Following Physical Limitations Were Barriers To This Education Session: None Instruction Provided To: Patient Full Stack Software Engineer Present: not applicable Discipline: Nursing Learning Topic: SURVIVAL SKILLS: Symptom Management Patient Evaluation: Verbalizes understanding: Yes Supplemental Material Given: Written Material Instructed By Jessica Kovacs RN In Department Urology . [facility] 07-22-2024 Note [facility] 07-22-2024 Nurse Note Actual procedure/procedure scheduled: Yes Performing provider/scheduled provider: Yes Patient was roomed in: Q9- 10 Clinical Product Manager offered:Patient declines Patient arrived in the room at: 0940 Patient ready for procedure: 0953 The procedure started at ( Time Only): 1010 The procedure ended at: 1014 Was the procedure delayed: Yes: Provider late: Provider with other patient on Q9 The patient left the procedure room at: 1037 Jessica Kovacs RN PRE PROCEDURE ASSESSMENT- Cysto Procedure Indication: Cystoscopy Latex Allergy: No Allergies reviewed and updated. Yes Pre-Procedure Vital Signs: BP: 158/74 Pulse: 76 Heart valve replacement: Yes Joint replacement: No Back Office UA otained: yes PROCEDURE PREP-Cysto Patient ID with two(2)identifiers verified by: Jessica Kovacs RN Pre-Procedure Antibiotics: None taken at home nor prior to procedure Patient Prep: Betadine Scrub to perineum and placement of Sterile Drape. COMPLETED Anesthetic Given:10 cc 2% Lidocaine jelly Jessica Kovacs RN UNIVERSAL PROTOCOL / SAFETY CHECKLIST Procedure to be performed: Cystoscopy Sign in Communication: Completed Time Out: Team Confirms the Correct Patient, Correct Procedure, Correct Site and Site Marking, Correct Position (if applicable). Sign Out Discussion: Completed Jessica Kovacs RN POST PROCEDURE NURSE ASSESSMENT Present along with physician during procedure exam. Jessica Kovacs RN Instruction sheet given and reviewed and patient verbalizes understanding: yes Current pain intensity is 0 on a 0-10 pain scale. Jessica Kovacs RN AMBULATORY PATIENT EDUCATION THE FOLLOWING WAS EVALUATED Motivation To Learn: Eager Interested Family/Significant Other Support: None - Unavailable/disinterested Cognitive Ability: Alert/Oriented Method of Instruction: Written instruction/Handouts Verbal instruction The Following Influencing Factors Were Barriers To This Education Session: None The Following Physical Limitations Were Barriers To This Education Session: None Instruction Provided To: Patient Full Stack Software Engineer Present: not applicable Discipline: Nursing Learning Topic: SURVIVAL SKILLS: Symptom Management Patient Evaluation: Verbalizes understanding: Yes Supplemental Material Given: Written Material Instructed By Jessica Kovacs RN In Department Urology . documented in this encounter [facility] 07-03-2024 History of Present illness Narrative Images from the original note were not included. [facility] [place] [facility] Department of Cardiovascular Medicine DEPARTMENT OF CARDIAC SURGERY OUTPATIENT VISIT DATE July 03, 2024 OUTPATIENT VISIT TYPE POSTOPERATIVE Brian Oneal is a 74 year old male who presents who is here for post operative follow up HPI: Surgeon: Masood Wilder M.D S/P on 06/18/2024 CABGx3 (WREN-LAD, SVG-OM1, SVG-PDA), MAZE, LAAC, Right atrial Pacer lead Discharged on 06/26/24 to [facility] view [facility] [phone] No past medical history on file. No past surgical history on file. ALLERGIES Allergen Reactions Azithromycin Other: See Comments Pt states he started having bloody stools after taking azithromycin Current Outpatient Medications Medication Sig metoprolol tartrate, short acting, (LOPRESSOR) 25 mg tablet Take 1 tablet by mouth every 12 hours. aspirin 81 mg chewable tablet Take 1 tablet by mouth once daily. bisacodyl (DULCOLAX) 10 mg supp 1 Suppository by RECTAL route once daily as needed for constipation. furosemide (LASIX) 20 mg tablet Take 1 tablet by mouth once daily for 7 days. Patient should start on June 27, 2024. heparin 5,000 unit/mL injection Inject 1 mL subcutaneously every 12 hours. For DVT prophylaxis until ambulatory oxyCODONE IR (ROXICODONE) 5 mg immediate release tablet Take 1 tablet by mouth every 6 hours as needed for pain (severe incision pain) for up to [address] (PROTONIX) 20 mg tablet Take 1 tablet by mouth daily at 6 am for 14 days. polyethylene glycol 3350 17 gram packet Take 1 Packet by mouth once daily as needed for constipation. Dissolve dose in 4 - 8 ounces of liquid and take as directed. senna-docusate (SENNA-S) 8.6-50 mg per tablet Take 2 tablets by mouth two times a day for 14 days. To prevent post op constipation, stop when no longer needed. gabapentin (NEURONTIN) 600 mg tablet Take 0.5 tablets by mouth every 12 hours for 30 days. atorvastatin (LIPITOR) 40 mg tablet Take 40 mg by mouth daily at bedtime. No current facility-administered medications for this visit. Chief Complaints: there is a lot swelling in my legs , im still at rehab, not sure when im going home Discharge Post Operative Course: Pain scale :Yes LOCATION: [facility] PAIN SCALE: 2 on a scale of 0-10 Appetite: appetite good Activity: Walking ad dee around the [place] Elimination: normal, no constipation , denies ABd painurination is normal Sleep: no problems with sleep Mood: normal Incisions/Wounds: Not applicable Review of Systems: HEENT: Negative for fevers since discharge, chills, and night sweats Cardiac: Denies significant problems, chest pain, and orthopnea Respiratory: denies asthma, bronchitis, orthopnea, reports dyspnea, cough Musculoskeletal: No history of joint swelling, joint pain, or loss of range of motion. Neuro: Denies neurological complaints, headaches, dizziness, or visual changes Physical Exam: BP 136/70 Pulse 75 Temp 36.7 C (98 F) (Oral) Ht 165.1 cm (5' 5 ) Wt 99.7 kg (219 lb 14.4 oz) SpO2 96% BMI 36.59 kg/m Appearance: well groomed, white male, in no acute distress Neck: No neck vein distention Cardiac: regular S1, S2, No murmur, No rub Lungs: Clear breath sounds bilaterally with decreased air entry at the bases bilaterally Abdomen: soft, non tender, non-distended, Normal bowel sounds Extremities: Edema: bilateral LE 2+ Left , 1+ right Sternum: stable, no click Sternotomy site: healing, clean, dry and intact, no cellulitis Wound: Location: right leg blisters along svg site and right foot SV Taswell sites: healing, clean, dry and intact, and mild surrounding redness Procedures: N/A IMPRESSION & PLAN: Surgeon: Masood Wilder M.D S/P on 06/18/2024 CABGx3 (WREN-LAD, SVG-OM1, SVG-PDA), MAZE, LAAC, Right atrial Pacer lead CXR July 03, 2024 Image reviewed Final report Lungs and pleura: Interval improvement in left lower lung opacities. Improving pulmonary edema. Small bilateral pleural effusions are present with adjacent atelectasis, more on the left. No pneumothorax. EKG July 03, 2024 ATRIAL-PACED RHYTHM WITH PROLONGED AV CONDUCTION NONSPECIFIC INTRAVENTRICULAR BLOCK Vent. rate 71 BPM NM interval 212 ms QRS duration 126 ms QT/QTcB 394/428 ms Labs July 03, 2024 Latest Reference Range & Units 06/26/24 07:36 07/03/24 14:25 WBC 3.70 - 11.00 k/uL 10.90 8.70 RBC 4.20 - 6.00 m/uL 3.01 (L) 3.25 (L) Hemoglobin 13.0 - 17.0 g/dL 9.0 (L) 9.4 (L) Hematocrit 39.0 - 51.0 % 28.7 (L) 31.6 (L) Platelet Count 150 - 400 k/uL 233 394 (L): Data is abnormally low Latest Reference Range & Units 06/26/24 07:36 07/03/24 14:25 Sodium 136 - 144 mmol/L 139 139 Potassium 3.7 - 5.1 mmol/L 4.2 5.1 Chloride 98 - 107 mmol/L 101 104 CO2 22 - 30 mmol/L 28 25 BUN 9 - 24 mg/dL 25 (H) 22 Creatinine 0.73 - 1.22 mg/dL 1.46 (H) 1.39 (H) (H): Data is abnormally high 2. Atrial Fibrillation pre op Hx of A fib. s/p Maze and LAAC 06/18/24 Per notes w/ Dr. Wilder > hold on resuming eliquis at this time as he has RUSS clip EKG today A paced rate 71 bpm. 3. CKD3/SIVA Scr will admitted 1.38-1.8. d/c on lasix Scr today 1.39 4. FVO / Atelectasis / Pleural Effusion - post op issue requiring diuretics and d/c on lasix. - d/c wt 222 lbs, wt today 219 lbs, LE edema wing 2+ right , 1+ left - reinforced low sodium diet, 2L fluid restriction, daily wts, use incentive spirometer every hr while awake, elevate legs, wear compression stockings, continue to increase ambulation - if Scr stable will change to torsemide - Scr 1.39 improved, stop lasix and start torsemide 20 mg once daily with low dose potassium suppl. Rx called into SNF 5. SVG site right leg svg site healing with blisters noted along the cardona adjacent to the incision, also blister noted on right foot - due to FVO and 2+ right LE edema. Vaseline guaze and kerlex wrap to right leg and right foot wound care daily to right leg at [facility] - pt should have HHC once d/c from SNF pt to start bactrim and order sent to [facility] in [place], [place] pt advised that he needs to return to see me for assessment of right svg wound Summary: Follow up with PCP next week Follow up with district leader in 4-6 weeks. Call [facility] OPD with any issues, concerns or worsening symptoms. Post op care and discharge orders reviewed with the patient- all questions were answered. Surgical sites healing without complication Discussed new medications, dosage, route of administration and side effects Reviewed walking program at home Reviewed diet guidelines for recovery from surgery Return to the clinic prn with signs or symptoms of infection, fevers, SOB, or pleural effusion SBE prophylaxis reviewed Discussed wound care Tamiko Mcduffie APRN.BDR documented in this encounter [facility] 07-03-2024 Note [facility] 07-03-2024 History of Present illness Narrative Radiology Service Progress Note PATIENT NAME: Brian Oneal DATE OF SERVICE: July 03, 2024 TIME: 2:19 PM PATIENT IDENTITY VERIFICATION COMPLETED USING TWO (2) IDENTIFIERS: Name and Date of confirmed by patient verbally. FALL SCREENING: Has the patient had 2 falls in the last year or 1 fall with injury or currently using an Ambulatory Assistive Device (Walker, Cane, Wheelchair, Crutches, etc.)? No PATIENT GENDER DATA: Male PATIENT RELEVANT IMPLANT DATA REVIEWED: Not Applicable PATIENT PRESENTS WITH AN IMPLANTABLE OR ATTACHED LAST GREASER: No RADIOLOGY DEPARTMENT: General X-ray: Exam(s) Completed: Chest X-Ray PERIPHERAL IV DATA: Not applicable SIGNED BY: RT Chaz(R) July 03, 2024 2:19 PM documented in this encounter [facility] 07-03-2024 Note [facility] 06-26-2024 [facility] 06-26-2024 Note [facility] 06-25-2024 Note [facility] 06-25-2024 Note [facility] 06-24-2024 History of Present illness Narrative Rectal Cancer Tumor Board Initial Presentation Date of conference: 06/24/2024. Date of Diagnosis: 06/05/2024. Pathology: Component FINAL DIAGNOSIS [facility], [place], [place]; [id number] (06/05/2024) 1. Stomach, biopsy (A): - Gastric oxyntic and antral mucosa with mild reactive epithelial changes and focal mild chronic inflammation. - No definitive morphologic evidence of Helicobacter pylori organisms. 2. Colon, transverse, polyp, biopsy (B): - Hyperplastic polyp. 3. Rectum, mass, biopsy (C): - Invasive moderately differentiated adenocarcinoma. Performing Lab Diagnostic interpretation performed at [facility], [address] [place] [id number] CLIA# [id number] Imaging Reviewed: MRI of pelvis: 06/09/2024. MRI performed at: Outside but re-read by Radiology. Relation to peritoneal reflection: Below. Tumor location in the rectum: Lower. Tumor height from anal verge: (#) cm. 2.9. Relation to sphincter: Sphincter abutment. Mesorectal lymph nodes: No. Extra-mesorectal lymph nodes: No. Other structures involved: No. Circumferential resection margin: Threatened. MRI Stage: T3aN0 Tumor deposits: No Mucinous: No CT chest: 06/05/2024. Metastases: No evidence of metastases CT abdomen: 06/05/2024. Metastases: Indeterminate lesion 1.5 cm sessile polypoid BLADDER MASS concerning for neoplasm Other Imaging reviewed: No. Distant metastases: No. CEA results: CEA (ng/mL) Date Value 06/11/2024 2.7 Pre-treatment clinical stage: cT3aN0. Tumor board discussion and recommendation: Neoadjuvant therapy recommended: Yes Total Neoadjuvant Therapy: Long-course chemoradiation (5 weeks) followed by consolidation chemotherapy (4 months) if responsive to chemoradiotherapy. After completion of VANDANA, assessment for complete clinical response and discussion regarding active surveillance versus surgery.. Anticipated surgical treatment: watch and wait versus APR . Anticipated en bloc resection: Pending tumor response to therapy Anticipated metastasectomy: none. Clinical Trial Candidate: No. Other Discussion: We discussed the radiologic findings, the patient's previous treatment and ongoing care. He will need urology for evaluation of the bladder. Recommended repeat MRI of the pelvis for improved image quality prior to starting therapy. Given that the tumor abuts the sphincter complex on MRI, for best oncologic outcome APR was recommended if indicated based on tumor response to therapy. Upcoming appointments with oncology, radiation oncology, and CORS follow up is ongoing. Will need MMR status evaluation. Disciplines present: Colorectal Surgery, Medical Oncology, Radiation Oncology, Radiology, Anatomic Pathology. This is the summary of the general discussion provided at tumor board conference. The final recommendations will be made by the primary health care team and the patient after discussing the benefits, risks and alternatives to the various treatment options. documented in this encounter [facility] 06-24-2024 Note [facility] 06-24-2024 [facility] 06-23-2024 [facility] 06-23-2024 Note [facility] 06-23-2024 Note [facility] 06-22-2024 [facility] 06-21-2024 Note [facility] 06-20-2024 Note [facility] 06-20-2024 [facility] 06-20-2024 Note [facility] 06-19-2024 [facility] 06-19-2024 [facility] 06-18-2024 [facility] 06-18-2024 [facility] 06-18-2024 Note [facility] 06-18-2024 Note [facility] 06-18-2024 [facility] 06-17-2024 Note [facility] 06-16-2024 [facility] 06-15-2024 [facility] 06-15-2024 [facility] 06-14-2024 Note [facility] 06-14-2024 Note [facility] 06-13-2024 Note [facility] 06-12-2024 Note [facility] 03-23-2022 Note EXAM: XR CHEST 2 [...] no acute abnormality. Electronically authenticated by: ALONSO AMSON Date: 2022-03-23 12:58 [facility] Evaluation note Diagnosis Encounter for support and coordination of transition of care- Primary Rectal cancer (HCC) Malignant neoplasm of rectum Primary hypertension Unspecified essential hypertension Coronary artery disease involving [place] coronary artery of [place] heart without angina pectoris Pacemaker Cardiac pacemaker in situ Atrial fibrillation, unspecified type (HCC) Other hyperlipidemia On mechanically assisted ventilation (HCC) Postoperative pain Other acute postoperative pain Rectal cancer (HCC) Malignant neoplasm of rectum Coronary artery disease Coronary atherosclerosis of unspecified type of vessel, [place] or graft Atrial fibrillation, chronic (HCC) Atrial fibrillation Chronic anticoagulation Long-term (current) use of anticoagulants Hypertension Unspecified essential hypertension Hyperlipidemia Other and unspecified hyperlipidemia Pacemaker Cardiac pacemaker in situ On mechanically assisted ventilation (HCC) Postoperative pain Other acute postoperative pain Stress hyperglycemia Other abnormal blood chemistry Obesity, Class I, BMI 30-34.9 Obesity, unspecified Coagulopathy (HCC) Other and unspecified coagulation defects ABLA (acute blood loss anemia) Cardiac insufficiency (HCC) Congestive heart failure, unspecified Other hypotension Lactic acidosis Acidosis Atelectasis Pulmonary collapse CKD (chronic kidney disease) stage 3, GFR 30-59 ml/min (HCC) Chronic kidney disease, Stage III (moderate) RVF (right ventricular failure) (HCC) Congestive heart failure, unspecified Hypervolemia Other fluid overload TEJ (obstructive sleep apnea) Obstructive sleep apnea (adult) (pediatric) Obesity, Class II, BMI 35-39.9 Obesity, unspecified Surgery follow-up- Primary Follow-up examination, following unspecified surgery Chest pain, unspecified type documented in this encounter [facility] note* Diagnosis Encounter for support and coordination of transition of care- Primary Rectal cancer (HCC) Malignant neoplasm of rectum Primary hypertension Unspecified essential hypertension Coronary artery disease involving [place] coronary artery of [place] heart without angina pectoris Pacemaker Cardiac pacemaker in situ Atrial fibrillation, unspecified type (HCC) Other hyperlipidemia On mechanically assisted ventilation (HCC) Postoperative pain Other acute postoperative pain Rectal cancer (HCC) Malignant neoplasm of rectum Coronary artery disease Coronary atherosclerosis of unspecified type of vessel, [place] or graft Atrial fibrillation, chronic (HCC) Atrial fibrillation Chronic anticoagulation Long-term (current) use of anticoagulants Hypertension Unspecified essential hypertension Hyperlipidemia Other and unspecified hyperlipidemia Pacemaker Cardiac pacemaker in situ On mechanically assisted ventilation (HCC) Postoperative pain Other acute postoperative pain Stress hyperglycemia Other abnormal blood chemistry Obesity, Class I, BMI 30-34.9 Obesity, unspecified Coagulopathy (HCC) Other and unspecified coagulation defects ABLA (acute blood loss anemia) Cardiac insufficiency (HCC) Congestive heart failure, unspecified Other hypotension Lactic acidosis Acidosis Atelectasis Pulmonary collapse CKD (chronic kidney disease) stage 3, GFR 30-59 ml/min (HCC) Chronic kidney disease, Stage III (moderate) RVF (right ventricular failure) (HCC) Congestive heart failure, unspecified Hypervolemia Other fluid overload TEJ (obstructive sleep apnea) Obstructive sleep apnea (adult) (pediatric) Obesity, Class II, BMI 35-39.9 Obesity, unspecified Surgery follow-up Follow-up examination, following unspecified surgery [facility] Diagnosis Encounter for support and coordination of transition of care- Primary Rectal cancer (HCC) Malignant neoplasm of rectum Primary hypertension Unspecified essential hypertension Coronary artery disease involving [place] coronary artery of [place] heart without angina pectoris Pacemaker Cardiac pacemaker in situ Atrial fibrillation, unspecified type (HCC) Other hyperlipidemia On mechanically assisted ventilation (HCC) Postoperative pain Other acute postoperative pain Rectal cancer (HCC) Malignant neoplasm of rectum Coronary artery disease Coronary atherosclerosis of unspecified type of vessel, [place] or graft Atrial fibrillation, chronic (HCC) Atrial fibrillation Chronic anticoagulation Long-term (current) use of anticoagulants Hypertension Unspecified essential hypertension Hyperlipidemia Other and unspecified hyperlipidemia Pacemaker Cardiac pacemaker in situ On mechanically assisted ventilation (HCC) Postoperative pain Other acute postoperative pain Stress hyperglycemia Other abnormal blood chemistry Obesity, Class I, BMI 30-34.9 Obesity, unspecified Coagulopathy (HCC) Other and unspecified coagulation defects ABLA (acute blood loss anemia) Cardiac insufficiency (HCC) Congestive heart failure, unspecified Other hypotension Lactic acidosis Acidosis Atelectasis Pulmonary collapse CKD (chronic kidney disease) stage 3, GFR 30-59 ml/min (HCC) Chronic kidney disease, Stage III (moderate) RVF (right ventricular failure) (HCC) Congestive heart failure, unspecified Hypervolemia Other fluid overload TEJ (obstructive sleep apnea) Obstructive sleep apnea (adult) (pediatric) Obesity, Class II, BMI 35-39.9 Obesity, unspecified 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 Atrial fibrillation, chronic (HCC) Atrial fibrillation Stage 3 chronic kidney disease, unspecified whether stage 3a or 3b CKD (HCC) [facility] Diagnosis Encounter for support and coordination of transition of care- Primary Rectal cancer (HCC) Malignant neoplasm of rectum Primary hypertension Unspecified essential hypertension Coronary artery disease involving [place] coronary artery of [place] heart without angina pectoris Pacemaker Cardiac pacemaker in situ Atrial fibrillation, unspecified type (HCC) Other hyperlipidemia On mechanically assisted ventilation (HCC) Postoperative pain Other acute postoperative pain Rectal cancer (HCC) Malignant neoplasm of rectum Coronary artery disease Coronary atherosclerosis of unspecified type of vessel, [place] or graft Atrial fibrillation, chronic (HCC) Atrial fibrillation Chronic anticoagulation Long-term (current) use of anticoagulants Hypertension Unspecified essential hypertension Hyperlipidemia Other and unspecified hyperlipidemia Pacemaker Cardiac pacemaker in situ On mechanically assisted ventilation (HCC) Postoperative pain Other acute postoperative pain Stress hyperglycemia Other abnormal blood chemistry Obesity, Class I, BMI 30-34.9 Obesity, unspecified Coagulopathy (HCC) Other and unspecified coagulation defects ABLA (acute blood loss anemia) Cardiac insufficiency (HCC) Congestive heart failure, unspecified Other hypotension Lactic acidosis Acidosis Atelectasis Pulmonary collapse CKD (chronic kidney disease) stage 3, GFR 30-59 ml/min (HCC) Chronic kidney disease, Stage III (moderate) RVF (right ventricular failure) (HCC) Congestive heart failure, unspecified Hypervolemia Other fluid overload TEJ (obstructive sleep apnea) Obstructive sleep apnea (adult) (pediatric) Obesity, Class II, BMI 35-39.9 Obesity, unspecified Rectal cancer (HCC)- Primary Malignant neoplasm of rectum Bladder mass Other specified disorders of bladder Prostate cancer managed with active surveillance (HCC) documented in this encounter [facility] note* Diagnosis Encounter for support and coordination of transition of care- Primary Rectal cancer (HCC) Malignant neoplasm of rectum Primary hypertension Unspecified essential hypertension Coronary artery disease involving [place] coronary artery of [place] heart without angina pectoris Pacemaker Cardiac pacemaker in situ Atrial fibrillation, unspecified type (HCC) Other hyperlipidemia On mechanically assisted ventilation (HCC) Postoperative pain Other acute postoperative pain Rectal cancer (HCC) Malignant neoplasm of rectum Coronary artery disease Coronary atherosclerosis of unspecified type of vessel, [place] or graft Atrial fibrillation, chronic (HCC) Atrial fibrillation Chronic anticoagulation Long-term (current) use of anticoagulants Hypertension Unspecified essential hypertension Hyperlipidemia Other and unspecified hyperlipidemia Pacemaker Cardiac pacemaker in situ On mechanically assisted ventilation ([facility]) Postoperative pain Other acute postoperative pain Stress hyperglycemia Other abnormal blood chemistry Obesity, Class I, BMI 30-34.9 Obesity, unspecified Coagulopathy (HCC) Other and unspecified coagulation defects ABLA (acute blood loss anemia) Cardiac insufficiency (HCC) Congestive heart failure, unspecified Other hypotension Lactic acidosis Acidosis Atelectasis Pulmonary collapse CKD (chronic kidney disease) stage 3, GFR 30-59 ml/min (HCC) Chronic kidney disease, Stage III (moderate) RVF (right ventricular failure) (HCC) Congestive heart failure, unspecified Hypervolemia Other fluid overload TEJ (obstructive sleep apnea) Obstructive sleep apnea (adult) (pediatric) Obesity, Class II, BMI 35-39.9 Obesity, unspecified Rectal cancer (HCC)- Primary Malignant neoplasm of rectum Bladder mass Other specified disorders of bladder documented in this encounter [facility] note* Diagnosis Encounter for support and coordination of transition of care- Primary Rectal cancer (HCC) Malignant neoplasm of rectum Primary hypertension Unspecified essential hypertension Coronary artery disease involving [place] coronary artery of [place] heart without angina pectoris Pacemaker Cardiac pacemaker in situ Atrial fibrillation, unspecified type (HCC) Other hyperlipidemia On mechanically assisted ventilation (HCC) Postoperative pain Other acute postoperative pain Rectal cancer (HCC) Malignant neoplasm of rectum Coronary artery disease Coronary atherosclerosis of unspecified type of vessel, [place] or graft Atrial fibrillation, chronic (HCC) Atrial fibrillation Chronic anticoagulation Long-term (current) use of anticoagulants Hypertension Unspecified essential hypertension Hyperlipidemia Other and unspecified hyperlipidemia Pacemaker Cardiac pacemaker in situ On mechanically assisted ventilation (HCC) Postoperative pain Other acute postoperative pain Stress hyperglycemia Other abnormal blood chemistry Obesity, Class I, BMI 30-34.9 Obesity, unspecified Coagulopathy (HCC) Other and unspecified coagulation defects ABLA (acute blood loss anemia) Cardiac insufficiency (HCC) Congestive heart failure, unspecified Other hypotension Lactic acidosis Acidosis Atelectasis Pulmonary collapse CKD (chronic kidney disease) stage 3, GFR 30-59 ml/min (HCC) Chronic kidney disease, Stage III (moderate) RVF (right ventricular failure) (HCC) Congestive heart failure, unspecified Hypervolemia Other fluid overload TEJ (obstructive sleep apnea) Obstructive sleep apnea (adult) (pediatric) Obesity, Class II, BMI 35-39.9 Obesity, unspecified Screening for genitourinary condition- Primary Screening for other and unspecified genitourinary condition 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 [facility] Diagnosis Encounter for support and coordination of transition of care- Primary Rectal cancer (HCC) Malignant neoplasm of rectum Primary hypertension Unspecified essential hypertension Coronary artery disease involving [place] coronary artery of [place] heart without angina pectoris Pacemaker Cardiac pacemaker in situ Atrial fibrillation, unspecified type (HCC) Other hyperlipidemia On mechanically assisted ventilation (HCC) Postoperative pain Other acute postoperative pain Rectal cancer (HCC) Malignant neoplasm of rectum Coronary artery disease Coronary atherosclerosis of unspecified type of vessel, [place] or graft Atrial fibrillation, chronic (HCC) Atrial fibrillation Chronic anticoagulation Long-term (current) use of anticoagulants Hypertension Unspecified essential hypertension Hyperlipidemia Other and unspecified hyperlipidemia Pacemaker Cardiac pacemaker in situ On mechanically assisted ventilation (HCC) Postoperative pain Other acute postoperative pain Stress hyperglycemia Other abnormal blood chemistry Obesity, Class I, BMI 30-34.9 Obesity, unspecified Coagulopathy (HCC) Other and unspecified coagulation defects ABLA (acute blood loss anemia) Cardiac insufficiency (HCC) Congestive heart failure, unspecified Other hypotension Lactic acidosis Acidosis Atelectasis Pulmonary collapse CKD (chronic kidney disease) stage 3, GFR 30-59 ml/min (HCC) Chronic kidney disease, Stage III (moderate) RVF (right ventricular failure) (HCC) Congestive heart failure, unspecified Hypervolemia Other fluid overload TEJ (obstructive sleep apnea) Obstructive sleep apnea (adult) (pediatric) Obesity, Class II, BMI 35-39.9 Obesity, unspecified Rectal cancer (HCC) Malignant neoplasm of rectum [facility] Diagnosis Encounter for support and coordination of transition of care- Primary Rectal cancer (HCC) Malignant neoplasm of rectum Primary hypertension Unspecified essential hypertension Coronary artery disease involving [place] coronary artery of [place] heart without angina pectoris Pacemaker Cardiac pacemaker in situ Atrial fibrillation, unspecified type (HCC) Other hyperlipidemia On mechanically assisted ventilation (HCC) Postoperative pain Other acute postoperative pain Rectal cancer (HCC) Malignant neoplasm of rectum Coronary artery disease Coronary atherosclerosis of unspecified type of vessel, [place] or graft Atrial fibrillation, chronic (HCC) Atrial fibrillation Chronic anticoagulation Long-term (current) use of anticoagulants Hypertension Unspecified essential hypertension Hyperlipidemia Other and unspecified hyperlipidemia Pacemaker Cardiac pacemaker in situ On mechanically assisted ventilation (HCC) Postoperative pain Other acute postoperative pain Stress hyperglycemia Other abnormal blood chemistry Obesity, Class I, BMI 30-34.9 Obesity, unspecified Coagulopathy (HCC) Other and unspecified coagulation defects ABLA (acute blood loss anemia) Cardiac insufficiency (HCC) Congestive heart failure, unspecified Other hypotension Lactic acidosis Acidosis Atelectasis Pulmonary collapse CKD (chronic kidney disease) stage 3, GFR 30-59 ml/min (HCC) Chronic kidney disease, Stage III (moderate) RVF (right ventricular failure) (HCC) Congestive heart failure, unspecified Hypervolemia Other fluid overload TEJ (obstructive sleep apnea) Obstructive sleep apnea (adult) (pediatric) Obesity, Class II, BMI 35-39.9 Obesity, unspecified Rectal cancer (HCC)- Primary Malignant neoplasm of rectum Iron deficiency anemia due to chronic blood loss Iron deficiency anemia secondary to blood loss (chronic) History of prostate cancer Personal history of malignant neoplasm of prostate [facility] Diagnosis Encounter for support and coordination of transition of care- Primary Rectal cancer (HCC) Malignant neoplasm of rectum Primary hypertension Unspecified essential hypertension Coronary artery disease involving [place] coronary artery of [place] heart without angina pectoris Pacemaker Cardiac pacemaker in situ Atrial fibrillation, unspecified type (HCC) Other hyperlipidemia On mechanically assisted ventilation (HCC) Postoperative pain Other acute postoperative pain Rectal cancer (HCC) Malignant neoplasm of rectum Coronary artery disease Coronary atherosclerosis of unspecified type of vessel, [place] or graft Atrial fibrillation, chronic (HCC) Atrial fibrillation Chronic anticoagulation Long-term (current) use of anticoagulants Hypertension Unspecified essential hypertension Hyperlipidemia Other and unspecified hyperlipidemia Pacemaker Cardiac pacemaker in situ On mechanically assisted ventilation (HCC) Postoperative pain Other acute postoperative pain Stress hyperglycemia Other abnormal blood chemistry Obesity, Class I, BMI 30-34.9 Obesity, unspecified Coagulopathy (HCC) Other and unspecified coagulation defects ABLA (acute blood loss anemia) Cardiac insufficiency (HCC) Congestive heart failure, unspecified Other hypotension Lactic acidosis Acidosis Atelectasis Pulmonary collapse CKD (chronic kidney disease) stage 3, GFR 30-59 ml/min (HCC) Chronic kidney disease, Stage III (moderate) RVF (right ventricular failure) (HCC) Congestive heart failure, unspecified Hypervolemia Other fluid overload TEJ (obstructive sleep apnea) Obstructive sleep apnea (adult) (pediatric) Obesity, Class II, BMI 35-39.9 Obesity, unspecified Rectal cancer (HCC)- Primary Malignant neoplasm of rectum documented in this encounter [facility] note* Diagnosis Encounter for support and coordination of transition of care- Primary Rectal cancer (HCC) Malignant neoplasm of rectum Primary hypertension Unspecified essential hypertension Coronary artery disease involving [place] coronary artery of [place] heart without angina pectoris Pacemaker Cardiac pacemaker in situ Atrial fibrillation, unspecified type (HCC) Other hyperlipidemia On mechanically assisted ventilation (HCC) Postoperative pain Other acute postoperative pain Rectal cancer (HCC) Malignant neoplasm of rectum Coronary artery disease Coronary atherosclerosis of unspecified type of vessel, [place] or graft Atrial fibrillation, chronic (HCC) Atrial fibrillation Chronic anticoagulation Long-term (current) use of anticoagulants Hypertension Unspecified essential hypertension Hyperlipidemia Other and unspecified hyperlipidemia Pacemaker Cardiac pacemaker in situ On mechanically assisted ventilation (HCC) Postoperative pain Other acute postoperative pain Stress hyperglycemia Other abnormal blood chemistry Obesity, Class I, BMI 30-34.9 Obesity, unspecified Coagulopathy (HCC) Other and unspecified coagulation defects ABLA (acute blood loss anemia) Cardiac insufficiency (HCC) Congestive heart failure, unspecified Other hypotension Lactic acidosis Acidosis Atelectasis Pulmonary collapse CKD (chronic kidney disease) stage 3, GFR 30-59 ml/min (HCC) Chronic kidney disease, Stage III (moderate) RVF (right ventricular failure) (HCC) Congestive heart failure, unspecified Hypervolemia Other fluid overload TEJ (obstructive sleep apnea) Obstructive sleep apnea (adult) (pediatric) Obesity, Class II, BMI 35-39.9 Obesity, unspecified Rectal cancer (HCC) Malignant neoplasm of rectum documented in this encounter [facility] note* Diagnosis Encounter for support and coordination of transition of care- Primary Rectal cancer (HCC) Malignant neoplasm of rectum Primary hypertension Unspecified essential hypertension Coronary artery disease involving [place] coronary artery of [place] heart without angina pectoris Pacemaker Cardiac pacemaker in situ Atrial fibrillation, unspecified type (HCC) Other hyperlipidemia On mechanically assisted ventilation (HCC) Postoperative pain Other acute postoperative pain Rectal cancer (HCC) Malignant neoplasm of rectum Coronary artery disease Coronary atherosclerosis of unspecified type of vessel, [place] or graft Atrial fibrillation, chronic (HCC) Atrial fibrillation Chronic anticoagulation Long-term (current) use of anticoagulants Hypertension Unspecified essential hypertension Hyperlipidemia Other and unspecified hyperlipidemia Pacemaker Cardiac pacemaker in situ On mechanically assisted ventilation (HCC) Postoperative pain Other acute postoperative pain Stress hyperglycemia Other abnormal blood chemistry Obesity, Class I, BMI 30-34.9 Obesity, unspecified Coagulopathy (HCC) Other and unspecified coagulation defects ABLA (acute blood loss anemia) Cardiac insufficiency (HCC) Congestive heart failure, unspecified Other hypotension Lactic acidosis Acidosis Atelectasis Pulmonary collapse CKD (chronic kidney disease) stage 3, GFR 30-59 ml/min (HCC) Chronic kidney disease, Stage III (moderate) RVF (right ventricular failure) (HCC) Congestive heart failure, unspecified Hypervolemia Other fluid overload TEJ (obstructive sleep apnea) Obstructive sleep apnea (adult) (pediatric) Obesity, Class II, BMI 35-39.9 Obesity, unspecified Rectal cancer (HCC) Malignant neoplasm of rectum [facility] Diagnosis Encounter for support and coordination of transition of care- Primary Rectal cancer (HCC) Malignant neoplasm of rectum Primary hypertension Unspecified essential hypertension Coronary artery disease involving [place] coronary artery of [place] heart without angina pectoris Pacemaker Cardiac pacemaker in situ Atrial fibrillation, unspecified type (HCC) Other hyperlipidemia On mechanically assisted ventilation (HCC) Postoperative pain Other acute postoperative pain Rectal cancer (HCC) Malignant neoplasm of rectum Coronary artery disease Coronary atherosclerosis of unspecified type of vessel, [place] or graft Atrial fibrillation, chronic (HCC) Atrial fibrillation Chronic anticoagulation Long-term (current) use of anticoagulants Hypertension Unspecified essential hypertension Hyperlipidemia Other and unspecified hyperlipidemia Pacemaker Cardiac pacemaker in situ On mechanically assisted ventilation (HCC) Postoperative pain Other acute postoperative pain Stress hyperglycemia Other abnormal blood chemistry Obesity, Class I, BMI 30-34.9 Obesity, unspecified Coagulopathy (HCC) Other and unspecified coagulation defects ABLA (acute blood loss anemia) Cardiac insufficiency (HCC) Congestive heart failure, unspecified Other hypotension Lactic acidosis Acidosis Atelectasis Pulmonary collapse CKD (chronic kidney disease) stage 3, GFR 30-59 ml/min (HCC) Chronic kidney disease, Stage III (moderate) RVF (right ventricular failure) (HCC) Congestive heart failure, unspecified Hypervolemia Other fluid overload TEJ (obstructive sleep apnea) Obstructive sleep apnea (adult) (pediatric) Obesity, Class II, BMI 35-39.9 Obesity, unspecified Rectal cancer (HCC)- Primary Malignant neoplasm of rectum Bladder mass Other specified disorders of bladder Unspecified abnormal findings in urine Rectal cancer (HCC) Malignant neoplasm of rectum Bladder mass Other specified disorders of bladder [facility] Diagnosis Encounter for support and coordination of transition of care- Primary Rectal cancer (HCC) Malignant neoplasm of rectum Primary hypertension Unspecified essential hypertension Coronary artery disease involving [place] coronary artery of [place] heart without angina pectoris Pacemaker Cardiac pacemaker in situ Atrial fibrillation, unspecified type (HCC) Other hyperlipidemia On mechanically assisted ventilation ([facility]) Postoperative pain Other acute postoperative pain Rectal cancer (HCC) Malignant neoplasm of rectum Coronary artery disease Coronary atherosclerosis of unspecified type of vessel, [place] or graft Atrial fibrillation, chronic (HCC) Atrial fibrillation Chronic anticoagulation Long-term (current) use of anticoagulants Hypertension Unspecified essential hypertension Hyperlipidemia Other and unspecified hyperlipidemia Pacemaker Cardiac pacemaker in situ On mechanically assisted ventilation (HCC) Postoperative pain Other acute postoperative pain Stress hyperglycemia Other abnormal blood chemistry Obesity, Class I, BMI 30-34.9 Obesity, unspecified Coagulopathy (HCC) Other and unspecified coagulation defects ABLA (acute blood loss anemia) Cardiac insufficiency (HCC) Congestive heart failure, unspecified Other hypotension Lactic acidosis Acidosis Atelectasis Pulmonary collapse CKD (chronic kidney disease) stage 3, GFR 30-59 ml/min (HCC) Chronic kidney disease, Stage III (moderate) RVF (right ventricular failure) (HCC) Congestive heart failure, unspecified Hypervolemia Other fluid overload TEJ (obstructive sleep apnea) Obstructive sleep apnea (adult) (pediatric) Obesity, Class II, BMI 35-39.9 Obesity, unspecified Rectal cancer (HCC) Malignant neoplasm of rectum Pre-op evaluation- Primary Preoperative examination, unspecified Primary hypertension Unspecified essential hypertension Mixed hyperlipidemia Coronary artery disease involving [place] coronary artery of [place] heart without angina pectoris Atrial fibrillation, chronic (HCC) Atrial fibrillation RVF (right ventricular failure) (HCC) Congestive heart failure, unspecified Pacemaker Cardiac pacemaker in situ Former smoker Personal history of tobacco use, presenting hazards to health TEJ (obstructive sleep apnea) Obstructive sleep apnea (adult) (pediatric) Stage 3 chronic kidney disease, unspecified whether stage 3a or 3b CKD (HCC) Rectal cancer (HCC) Malignant neoplasm of rectum History of prostate cancer Personal history of malignant neoplasm of prostate Obesity, Class II, BMI 35-39.9 Obesity, unspecified Rectal cancer (HCC) Malignant neoplasm of rectum Bladder mass Other specified disorders of bladder documented in this encounter [facility] note* Diagnosis Encounter for support and coordination of transition of care- Primary Rectal cancer (HCC) Malignant neoplasm of rectum Primary hypertension Unspecified essential hypertension Coronary artery disease involving [place] coronary artery of [place] heart without angina pectoris Pacemaker Cardiac pacemaker in situ Atrial fibrillation, unspecified type (HCC) Other hyperlipidemia On mechanically assisted ventilation (HCC) Postoperative pain Other acute postoperative pain Rectal cancer (HCC) Malignant neoplasm of rectum Coronary artery disease Coronary atherosclerosis of unspecified type of vessel, [place] or graft Atrial fibrillation, chronic (HCC) Atrial fibrillation Chronic anticoagulation Long-term (current) use of anticoagulants Hypertension Unspecified essential hypertension Hyperlipidemia Other and unspecified hyperlipidemia Pacemaker Cardiac pacemaker in situ On mechanically assisted ventilation (HCC) Postoperative pain Other acute postoperative pain Stress hyperglycemia Other abnormal blood chemistry Obesity, Class I, BMI 30-34.9 Obesity, unspecified Coagulopathy (HCC) Other and unspecified coagulation defects ABLA (acute blood loss anemia) Cardiac insufficiency (HCC) Congestive heart failure, unspecified Other hypotension Lactic acidosis Acidosis Atelectasis Pulmonary collapse CKD (chronic kidney disease) stage 3, GFR 30-59 ml/min (HCC) Chronic kidney disease, Stage III (moderate) RVF (right ventricular failure) (HCC) Congestive heart failure, unspecified Hypervolemia Other fluid overload TEJ (obstructive sleep apnea) Obstructive sleep apnea (adult) (pediatric) Obesity, Class II, BMI 35-39.9 Obesity, unspecified Pre-op evaluation- Primary Preoperative examination, unspecified Primary hypertension Unspecified essential hypertension Mixed hyperlipidemia Coronary artery disease involving [place] coronary artery of [place] heart without angina pectoris Atrial fibrillation, chronic (HCC) Atrial fibrillation RVF (right ventricular failure) (HCC) Congestive heart failure, unspecified Pacemaker Cardiac pacemaker in situ Former smoker Personal history of tobacco use, presenting hazards to health TEJ (obstructive sleep apnea) Obstructive sleep apnea (adult) (pediatric) Stage 3 chronic kidney disease, unspecified whether stage 3a or 3b CKD (HCC) Rectal cancer (HCC) Malignant neoplasm of rectum History of prostate cancer Personal history of malignant neoplasm of prostate Obesity (BMI 30-39.9) Obesity, unspecified Anemia, unspecified type Obesity, Class II, BMI 35-39.9 Obesity, unspecified Rectal cancer (HCC) Malignant neoplasm of rectum Bladder mass Other specified disorders of bladder [facility] Diagnosis Encounter for support and coordination of transition of care- Primary Rectal cancer (HCC) Malignant neoplasm of rectum Primary hypertension Unspecified essential hypertension Coronary artery disease involving [place] coronary artery of [place] heart without angina pectoris Pacemaker Cardiac pacemaker in situ Atrial fibrillation, unspecified type (HCC) Other hyperlipidemia On mechanically assisted ventilation (HCC) Postoperative pain Other acute postoperative pain Rectal cancer (HCC) Malignant neoplasm of rectum Coronary artery disease Coronary atherosclerosis of unspecified type of vessel, [place] or graft Atrial fibrillation, chronic (HCC) Atrial fibrillation Chronic anticoagulation Long-term (current) use of anticoagulants Hypertension Unspecified essential hypertension Hyperlipidemia Other and unspecified hyperlipidemia Pacemaker Cardiac pacemaker in situ On mechanically assisted ventilation (HCC) Postoperative pain Other acute postoperative pain Stress hyperglycemia Other abnormal blood chemistry Obesity, Class I, BMI 30-34.9 Obesity, unspecified Coagulopathy (HCC) Other and unspecified coagulation defects ABLA (acute blood loss anemia) Cardiac insufficiency (HCC) Congestive heart failure, unspecified Other hypotension Lactic acidosis Acidosis Atelectasis Pulmonary collapse CKD (chronic kidney disease) stage 3, GFR 30-59 ml/min (HCC) Chronic kidney disease, Stage III (moderate) RVF (right ventricular failure) (HCC) Congestive heart failure, unspecified Hypervolemia Other fluid overload TEJ (obstructive sleep apnea) Obstructive sleep apnea (adult) (pediatric) Obesity, Class II, BMI 35-39.9 Obesity, unspecified Pre-op exam- Primary Preoperative examination, unspecified Rectal cancer (HCC) Malignant neoplasm of rectum Bladder mass Other specified disorders of bladder [facility] Diagnosis Encounter for support and coordination of transition of care- Primary Rectal cancer (HCC) Malignant neoplasm of rectum Primary hypertension Unspecified essential hypertension Coronary artery disease involving [place] coronary artery of [place] heart without angina pectoris Pacemaker Cardiac pacemaker in situ Atrial fibrillation, unspecified type (HCC) Other hyperlipidemia On mechanically assisted ventilation (HCC) Postoperative pain Other acute postoperative pain Rectal cancer (HCC) Malignant neoplasm of rectum Coronary artery disease Coronary atherosclerosis of unspecified type of vessel, [place] or graft Atrial fibrillation, chronic (HCC) Atrial fibrillation Chronic anticoagulation Long-term (current) use of anticoagulants Hypertension Unspecified essential hypertension Hyperlipidemia Other and unspecified hyperlipidemia Pacemaker Cardiac pacemaker in situ On mechanically assisted ventilation (HCC) Postoperative pain Other acute postoperative pain Stress hyperglycemia Other abnormal blood chemistry Obesity, Class I, BMI 30-34.9 Obesity, unspecified Coagulopathy (HCC) Other and unspecified coagulation defects ABLA (acute blood loss anemia) Cardiac insufficiency (HCC) Congestive heart failure, unspecified Other hypotension Lactic acidosis Acidosis Atelectasis Pulmonary collapse CKD (chronic kidney disease) stage 3, GFR 30-59 ml/min (HCC) Chronic kidney disease, Stage III (moderate) RVF (right ventricular failure) (HCC) Congestive heart failure, unspecified Hypervolemia Other fluid overload TEJ (obstructive sleep apnea) Obstructive sleep apnea (adult) (pediatric) Obesity, Class II, BMI 35-39.9 Obesity, unspecified Screening for genitourinary condition Screening for other and unspecified genitourinary condition [facility] Diagnosis Encounter for support and coordination of transition of care- Primary Rectal cancer (HCC) Malignant neoplasm of rectum Primary hypertension Unspecified essential hypertension Coronary artery disease involving [place] coronary artery of [place] heart without angina pectoris Pacemaker Cardiac pacemaker in situ Atrial fibrillation, unspecified type (HCC) Other hyperlipidemia On mechanically assisted ventilation (HCC) Postoperative pain Other acute postoperative pain Rectal cancer (HCC) Malignant neoplasm of rectum Coronary artery disease Coronary atherosclerosis of unspecified type of vessel, [place] or graft Atrial fibrillation, chronic (HCC) Atrial fibrillation Chronic anticoagulation Long-term (current) use of anticoagulants Hypertension Unspecified essential hypertension Hyperlipidemia Other and unspecified hyperlipidemia Pacemaker Cardiac pacemaker in situ On mechanically assisted ventilation (HCC) Postoperative pain Other acute postoperative pain Stress hyperglycemia Other abnormal blood chemistry Obesity, Class I, BMI 30-34.9 Obesity, unspecified Coagulopathy (HCC) Other and unspecified coagulation defects ABLA (acute blood loss anemia) Cardiac insufficiency (HCC) Congestive heart failure, unspecified Other hypotension Lactic acidosis Acidosis Atelectasis Pulmonary collapse CKD (chronic kidney disease) stage 3, GFR 30-59 ml/min (HCC) Chronic kidney disease, Stage III (moderate) RVF (right ventricular failure) (HCC) Congestive heart failure, unspecified Hypervolemia Other fluid overload TEJ (obstructive sleep apnea) Obstructive sleep apnea (adult) (pediatric) Obesity, Class II, BMI 35-39.9 Obesity, unspecified Rectal cancer (HCC)- Primary Malignant neoplasm of rectum documented in this encounter [facility] note* Diagnosis Encounter for support and coordination of transition of care- Primary Rectal cancer (HCC) Malignant neoplasm of rectum Primary hypertension Unspecified essential hypertension Coronary artery disease involving [place] coronary artery of [place] heart without angina pectoris Pacemaker Cardiac pacemaker in situ Atrial fibrillation, unspecified type (HCC) Other hyperlipidemia On mechanically assisted ventilation (HCC) Postoperative pain Other acute postoperative pain Rectal cancer (HCC) Malignant neoplasm of rectum Coronary artery disease Coronary atherosclerosis of unspecified type of vessel, [place] or graft Atrial fibrillation, chronic (HCC) Atrial fibrillation Chronic anticoagulation Long-term (current) use of anticoagulants Hypertension Unspecified essential hypertension Hyperlipidemia Other and unspecified hyperlipidemia Pacemaker Cardiac pacemaker in situ On mechanically assisted ventilation (HCC) Postoperative pain Other acute postoperative pain Stress hyperglycemia Other abnormal blood chemistry Obesity, Class I, BMI 30-34.9 Obesity, unspecified Coagulopathy (HCC) Other and unspecified coagulation defects ABLA (acute blood loss anemia) Cardiac insufficiency (HCC) Congestive heart failure, unspecified Other hypotension Lactic acidosis Acidosis Atelectasis Pulmonary collapse CKD (chronic kidney disease) stage 3, GFR 30-59 ml/min (HCC) Chronic kidney disease, Stage III (moderate) RVF (right ventricular failure) (HCC) Congestive heart failure, unspecified Hypervolemia Other fluid overload TEJ (obstructive sleep apnea) Obstructive sleep apnea (adult) (pediatric) Obesity, Class II, BMI 35-39.9 Obesity, unspecified Rectal cancer (HCC)- Primary Malignant neoplasm of rectum documented in this encounter [facility] note* Diagnosis Encounter for support and coordination of transition of care- Primary Rectal cancer (HCC) Malignant neoplasm of rectum Primary hypertension Unspecified essential hypertension Coronary artery disease involving [place] coronary artery of [place] heart without angina pectoris Pacemaker Cardiac pacemaker in situ Atrial fibrillation, unspecified type (HCC) Other hyperlipidemia On mechanically assisted ventilation (HCC) Postoperative pain Other acute postoperative pain Rectal cancer (HCC) Malignant neoplasm of rectum Coronary artery disease Coronary atherosclerosis of unspecified type of vessel, [place] or graft Atrial fibrillation, chronic (HCC) Atrial fibrillation Chronic anticoagulation Long-term (current) use of anticoagulants Hypertension Unspecified essential hypertension Hyperlipidemia Other and unspecified hyperlipidemia Pacemaker Cardiac pacemaker in situ On mechanically assisted ventilation (HCC) Postoperative pain Other acute postoperative pain Stress hyperglycemia Other abnormal blood chemistry Obesity, Class I, BMI 30-34.9 Obesity, unspecified Coagulopathy (HCC) Other and unspecified coagulation defects ABLA (acute blood loss anemia) Cardiac insufficiency (HCC) Congestive heart failure, unspecified Other hypotension Lactic acidosis Acidosis Atelectasis Pulmonary collapse CKD (chronic kidney disease) stage 3, GFR 30-59 ml/min (HCC) Chronic kidney disease, Stage III (moderate) RVF (right ventricular failure) (HCC) Congestive heart failure, unspecified Hypervolemia Other fluid overload TEJ (obstructive sleep apnea) Obstructive sleep apnea (adult) (pediatric) Obesity, Class II, BMI 35-39.9 Obesity, unspecified Malignant neoplasm of overlapping sites of bladder (HCC)- Primary Malignant neoplasm of other specified sites of bladder documented in this encounter [facility] note* Diagnosis Encounter for support and coordination of transition of care- Primary Rectal cancer (HCC) Malignant neoplasm of rectum Primary hypertension Unspecified essential hypertension Coronary artery disease involving [place] coronary artery of [place] heart without angina pectoris Pacemaker Cardiac pacemaker in situ Atrial fibrillation, unspecified type (HCC) Other hyperlipidemia On mechanically assisted ventilation (HCC) Postoperative pain Other acute postoperative pain Rectal cancer (HCC) Malignant neoplasm of rectum Coronary artery disease Coronary atherosclerosis of unspecified type of vessel, [place] or graft Atrial fibrillation, chronic (HCC) Atrial fibrillation Chronic anticoagulation Long-term (current) use of anticoagulants Hypertension Unspecified essential hypertension Hyperlipidemia Other and unspecified hyperlipidemia Pacemaker Cardiac pacemaker in situ On mechanically assisted ventilation ([facility]) Postoperative pain Other acute postoperative pain Stress hyperglycemia Other abnormal blood chemistry Obesity, Class I, BMI 30-34.9 Obesity, unspecified Coagulopathy (HCC) Other and unspecified coagulation defects ABLA (acute blood loss anemia) Cardiac insufficiency (HCC) Congestive heart failure, unspecified Other hypotension Lactic acidosis Acidosis Atelectasis Pulmonary collapse CKD (chronic kidney disease) stage 3, GFR 30-59 ml/min (HCC) Chronic kidney disease, Stage III (moderate) RVF (right ventricular failure) (HCC) Congestive heart failure, unspecified Hypervolemia Other fluid overload TEJ (obstructive sleep apnea) Obstructive sleep apnea (adult) (pediatric) Obesity, Class II, BMI 35-39.9 Obesity, unspecified Rectal cancer (HCC) Malignant neoplasm of rectum documented in this encounter [facility] note* Diagnosis Encounter for support and coordination of transition of care- Primary Rectal cancer (HCC) Malignant neoplasm of rectum Primary hypertension Unspecified essential hypertension Coronary artery disease involving [place] coronary artery of [place] heart without angina pectoris Pacemaker Cardiac pacemaker in situ Atrial fibrillation, unspecified type (HCC) Other hyperlipidemia On mechanically assisted ventilation (HCC) Postoperative pain Other acute postoperative pain Rectal cancer (HCC) Malignant neoplasm of rectum Coronary artery disease Coronary atherosclerosis of unspecified type of vessel, [place] or graft Atrial fibrillation, chronic (HCC) Atrial fibrillation Chronic anticoagulation Long-term (current) use of anticoagulants Hypertension Unspecified essential hypertension Hyperlipidemia Other and unspecified hyperlipidemia Pacemaker Cardiac pacemaker in situ On mechanically assisted ventilation (HCC) Postoperative pain Other acute postoperative pain Stress hyperglycemia Other abnormal blood chemistry Obesity, Class I, BMI 30-34.9 Obesity, unspecified Coagulopathy (HCC) Other and unspecified coagulation defects ABLA (acute blood loss anemia) Cardiac insufficiency (HCC) Congestive heart failure, unspecified Other hypotension Lactic acidosis Acidosis Atelectasis Pulmonary collapse CKD (chronic kidney disease) stage 3, GFR 30-59 ml/min (HCC) Chronic kidney disease, Stage III (moderate) RVF (right ventricular failure) (HCC) Congestive heart failure, unspecified Hypervolemia Other fluid overload TEJ (obstructive sleep apnea) Obstructive sleep apnea (adult) (pediatric) Obesity, Class II, BMI 35-39.9 Obesity, unspecified Rectal cancer (HCC)- Primary Malignant neoplasm of rectum [facility] Diagnosis Encounter for support and coordination of transition of care- Primary Rectal cancer (HCC) Malignant neoplasm of rectum Primary hypertension Unspecified essential hypertension Coronary artery disease involving [place] coronary artery of [place] heart without angina pectoris Pacemaker Cardiac pacemaker in situ Atrial fibrillation, unspecified type (HCC) Other hyperlipidemia On mechanically assisted ventilation (HCC) Postoperative pain Other acute postoperative pain Rectal cancer (HCC) Malignant neoplasm of rectum Coronary artery disease Coronary atherosclerosis of unspecified type of vessel, [place] or graft Atrial fibrillation, chronic (HCC) Atrial fibrillation Chronic anticoagulation Long-term (current) use of anticoagulants Hypertension Unspecified essential hypertension Hyperlipidemia Other and unspecified hyperlipidemia Pacemaker Cardiac pacemaker in situ On mechanically assisted ventilation (HCC) Postoperative pain Other acute postoperative pain Stress hyperglycemia Other abnormal blood chemistry Obesity, Class I, BMI 30-34.9 Obesity, unspecified Coagulopathy (HCC) Other and unspecified coagulation defects ABLA (acute blood loss anemia) Cardiac insufficiency (HCC) Congestive heart failure, unspecified Other hypotension Lactic acidosis Acidosis Atelectasis Pulmonary collapse CKD (chronic kidney disease) stage 3, GFR 30-59 ml/min (HCC) Chronic kidney disease, Stage III (moderate) RVF (right ventricular failure) (HCC) Congestive heart failure, unspecified Hypervolemia Other fluid overload TEJ (obstructive sleep apnea) Obstructive sleep apnea (adult) (pediatric) Obesity, Class II, BMI 35-39.9 Obesity, unspecified Rectal cancer (HCC)- Primary Malignant neoplasm of rectum documented in this encounter [facility] note* Diagnosis Encounter for support and coordination of transition of care- Primary Rectal cancer (HCC) Malignant neoplasm of rectum Primary hypertension Unspecified essential hypertension Coronary artery disease involving [place] coronary artery of [place] heart without angina pectoris Pacemaker Cardiac pacemaker in situ Atrial fibrillation, unspecified type (HCC) Other hyperlipidemia On mechanically assisted ventilation (HCC) Postoperative pain Other acute postoperative pain Rectal cancer (HCC) Malignant neoplasm of rectum Coronary artery disease Coronary atherosclerosis of unspecified type of vessel, [place] or graft Atrial fibrillation, chronic (HCC) Atrial fibrillation Chronic anticoagulation Long-term (current) use of anticoagulants Hypertension Unspecified essential hypertension Hyperlipidemia Other and unspecified hyperlipidemia Pacemaker Cardiac pacemaker in situ On mechanically assisted ventilation (HCC) Postoperative pain Other acute postoperative pain Stress hyperglycemia Other abnormal blood chemistry Obesity, Class I, BMI 30-34.9 Obesity, unspecified Coagulopathy (HCC) Other and unspecified coagulation defects ABLA (acute blood loss anemia) Cardiac insufficiency (HCC) Congestive heart failure, unspecified Other hypotension Lactic acidosis Acidosis Atelectasis Pulmonary collapse CKD (chronic kidney disease) stage 3, GFR 30-59 ml/min (HCC) Chronic kidney disease, Stage III (moderate) RVF (right ventricular failure) (HCC) Congestive heart failure, unspecified Hypervolemia Other fluid overload TEJ (obstructive sleep apnea) Obstructive sleep apnea (adult) (pediatric) Obesity, Class II, BMI 35-39.9 Obesity, unspecified Rectal cancer (HCC) Malignant neoplasm of rectum documented in this encounter [facility] note* Diagnosis Encounter for support and coordination of transition of care- Primary Rectal cancer (HCC) Malignant neoplasm of rectum Primary hypertension Unspecified essential hypertension Coronary artery disease involving [place] coronary artery of [place] heart without angina pectoris Pacemaker Cardiac pacemaker in situ Atrial fibrillation, unspecified type (HCC) Other hyperlipidemia On mechanically assisted ventilation (HCC) Postoperative pain Other acute postoperative pain Rectal cancer (HCC) Malignant neoplasm of rectum Coronary artery disease Coronary atherosclerosis of unspecified type of vessel, [place] or graft Atrial fibrillation, chronic (HCC) Atrial fibrillation Chronic anticoagulation Long-term (current) use of anticoagulants Hypertension Unspecified essential hypertension Hyperlipidemia Other and unspecified hyperlipidemia Pacemaker Cardiac pacemaker in situ On mechanically assisted ventilation (HCC) Postoperative pain Other acute postoperative pain Stress hyperglycemia Other abnormal blood chemistry Obesity, Class I, BMI 30-34.9 Obesity, unspecified Coagulopathy (HCC) Other and unspecified coagulation defects ABLA (acute blood loss anemia) Cardiac insufficiency (HCC) Congestive heart failure, unspecified Other hypotension Lactic acidosis Acidosis Atelectasis Pulmonary collapse CKD (chronic kidney disease) stage 3, GFR 30-59 ml/min (HCC) Chronic kidney disease, Stage III (moderate) RVF (right ventricular failure) (HCC) Congestive heart failure, unspecified Hypervolemia Other fluid overload TEJ (obstructive sleep apnea) Obstructive sleep apnea (adult) (pediatric) Obesity, Class II, BMI 35-39.9 Obesity, unspecified Rectal cancer (HCC)- Primary Malignant neoplasm of rectum documented in this encounter [facility] note* Diagnosis Encounter for support and coordination of transition of care- Primary Rectal cancer (HCC) Malignant neoplasm of rectum Primary hypertension Unspecified essential hypertension Coronary artery disease involving [place] coronary artery of [place] heart without angina pectoris Pacemaker Cardiac pacemaker in situ Atrial fibrillation, unspecified type (HCC) Other hyperlipidemia On mechanically assisted ventilation (HCC) Postoperative pain Other acute postoperative pain Rectal cancer (HCC) Malignant neoplasm of rectum Coronary artery disease Coronary atherosclerosis of unspecified type of vessel, [place] or graft Atrial fibrillation, chronic (HCC) Atrial fibrillation Chronic anticoagulation Long-term (current) use of anticoagulants Hypertension Unspecified essential hypertension Hyperlipidemia Other and unspecified hyperlipidemia Pacemaker Cardiac pacemaker in situ On mechanically assisted ventilation (HCC) Postoperative pain Other acute postoperative pain Stress hyperglycemia Other abnormal blood chemistry Obesity, Class I, BMI 30-34.9 Obesity, unspecified Coagulopathy (HCC) Other and unspecified coagulation defects ABLA (acute blood loss anemia) Cardiac insufficiency (HCC) Congestive heart failure, unspecified Other hypotension Lactic acidosis Acidosis Atelectasis Pulmonary collapse CKD (chronic kidney disease) stage 3, GFR 30-59 ml/min (HCC) Chronic kidney disease, Stage III (moderate) RVF (right ventricular failure) (HCC) Congestive heart failure, unspecified Hypervolemia Other fluid overload TEJ (obstructive sleep apnea) Obstructive sleep apnea (adult) (pediatric) Obesity, Class II, BMI 35-39.9 Obesity, unspecified Rectal cancer (HCC)- Primary Malignant neoplasm of rectum documented in this encounter [facility] note* Diagnosis Encounter for support and coordination of transition of care- Primary Rectal cancer (HCC) Malignant neoplasm of rectum Primary hypertension Unspecified essential hypertension Coronary artery disease involving [place] coronary artery of [place] heart without angina pectoris Pacemaker Cardiac pacemaker in situ Atrial fibrillation, unspecified type (HCC) Other hyperlipidemia On mechanically assisted ventilation (HCC) Postoperative pain Other acute postoperative pain Rectal cancer (HCC) Malignant neoplasm of rectum Coronary artery disease Coronary atherosclerosis of unspecified type of vessel, [place] or graft Atrial fibrillation, chronic (HCC) Atrial fibrillation Chronic anticoagulation Long-term (current) use of anticoagulants Hypertension Unspecified essential hypertension Hyperlipidemia Other and unspecified hyperlipidemia Pacemaker Cardiac pacemaker in situ On mechanically assisted ventilation (HCC) Postoperative pain Other acute postoperative pain Stress hyperglycemia Other abnormal blood chemistry Obesity, Class I, BMI 30-34.9 Obesity, unspecified Coagulopathy (HCC) Other and unspecified coagulation defects ABLA (acute blood loss anemia) Cardiac insufficiency (HCC) Congestive heart failure, unspecified Other hypotension Lactic acidosis Acidosis Atelectasis Pulmonary collapse CKD (chronic kidney disease) stage 3, GFR 30-59 ml/min (HCC) Chronic kidney disease, Stage III (moderate) RVF (right ventricular failure) (HCC) Congestive heart failure, unspecified Hypervolemia Other fluid overload TEJ (obstructive sleep apnea) Obstructive sleep apnea (adult) (pediatric) Obesity, Class II, BMI 35-39.9 Obesity, unspecified NO SHOW- Primary [facility] Out[facility] Procedure (Routine) - Authorized Specialty Diagnoses / Procedures Referred By Tete fregoso Referred To Contact [facility] Diagnoses Surgery follow-up Procedures ECG COMPLETE ECG ROUTINE ECG W/LEAST 12 LDS W/I&R Masood Wilder MD [address] [place] [address] [facility] [place] [address] Referral ID Status Reason Start Date Expiration Date Visits Requested Visits Authorized [id number] Authorized Auto-Generat ed Referral 07/01/2024 07/01/2025 1 1 [facility] Summary Purpose Family History No Family History Records FoundNo Family History Records FoundNo Family History Records FoundNo Family History Records FoundNo Family History Records FoundNo Family History Records FoundNo Family History Records FoundNo Family History Records Found Advance Directives No Advanced Directives Records FoundDocuments on File Type Date Recorded 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 Directive(s) 06/18/2024 7:47 AM Documents on File Type Date Recorded 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 Directive(s) 06/18/2024 7:47 AM Reason for Referral Specialty Diagnoses / Procedures Referred By Contac t Referred To Contact Oncology Diagnoses Rectal cancer (HCC) Procedures CONSULT TO ONCOLOGY OFFICE/OUTPATIENT [facility] 60 MINUTES Jeremie Coyne MD [address] [phone] Referral ID Status Reason Start Date Expiration Date Visits Requested Visits Authorized [id number] Authorized PCP Requested Referral 07/23/2024 07/23/2025 1 1 Specialty Diagnoses / Procedures Referred By Contac t Referred To Contact Radiation Oncology Diagnoses Rectal cancer (HCC) Procedures RAD/ONC CONSULT OFFICE/OUTPATIENT [facility] 60 MINUTES Jeremie Coyne MD [address] [phone] Referral ID Status Reason Start Date Expiration Date Visits Requested Visits Authorized [id number] Authorized PCP Requested Referral 07/23/2024 07/23/2025 1 1 Specialty Diagnoses / Procedures Referred By Contac t Referred To Contact CT IMAGING Diagnoses Rectal cancer (HCC) Procedures CT CHEST W IVCON DIAGNOSTIC COMPUTED TOMOGRAPHY THORAX W/CONTRAST Fred Gonzalez MD [address] [place] [address] [place] [address] Ct Imaging [id number] Referral ID Status Reason Start Date Expiration Date Visits Requested Visits Authorized [id number] Authorized Auto-Generat ed Referral 08/29/2025 1 1 Specialty Diagnoses / Procedures Referred By Contac t Referred To Contact CT IMAGING Diagnoses Rectal cancer (HCC) Procedures CT ABD/PEL W IVCON CT ABD & PELVIS W/CONTRAST Fred Gonzalez MD [address] [place] [address] [place] [address] Ct Imaging [id number] Referral ID Status Reason Start Date Expiration Date Visits Requested Visits Authorized [id number] Authorized Auto-Generat ed Referral 08/29/2025 1 1 Specialty Diagnoses / Procedures Referred By Contac t Referred To Contact Diagnoses Rectal cancer (HCC) Bladder mass Procedures REFER TO [facility] PRE[facility]ATIVE [facility]IM[facility]ATION OFFICE/OUTPATIENT NEW HIGH MDM 60 MINUTES Joaquina Dacosta APRN.BDR [address] [place] [address] Referral ID Status Reason Start Date Expiration Date Visits Requested Visits Authorized [id number] Authorized PCP Requested Referral 08/14/2024 08/13/2025 1 1 Specialty Diagnoses / Procedures Referred By Contac t Referred To Contact Diagnoses Rectal cancer (HCC) Procedures CT SIM PLANNING RADIATION ONCOLOGY THER RAD SIMULAJ-AIDED FIELD SETTING COMPLEX Noah Harrison MD [address] [place] [address] [place] [address] Referral ID Status Reason Start Date Expiration Date Visits Requested Visits Authorized [id number] New Request PCP Requested Referral 12/03/2024 1 1 Additional Source Comments (unrecognized sect ion and content) No Status Records FoundNo Status Records FoundNo Status Records FoundNo Status Records FoundNo Status Records FoundNo Status Records FoundNo Status Records FoundNo Status Records Found INFORMATION SOURCE (unrecogn ized section and content) DATE CREATED AUTHOR 01/29/2022 [facility] DATE CREATED AUTHOR AUTHOR'S ORGANIZ ATION 04/23/2022 [facility] DATE CREATED AUTHOR AUTHOR'S ORGANIZ ATION 01/18/2023 [facility] DATE CREATED AUTHOR AUTHOR'S ORGANIZ ATION 04/05/2024 [facility] DATE CREATED AUTHOR AUTHOR'S ORGANIZ ATION 05/08/2024 [facility] DATE CREATED AUTHOR AUTHOR'S ORGANIZ ATION 08/20/2024 [facility] DATE CREATED AUTHOR AUTHOR'S ORGANIZ ATION 12/31/2024 [facility] DATE CREATED AUTHOR AUTHOR'S ORGANIZ ATION 07/02/2025 [facility] Source Comments (unrecognize d section and content) In the event this informatio n is protected by the Federal Confidentiality of Alcohol and Drug Abuse Patient Records regulations: The Federal rules restrict any use of the information to criminally investigate or prosecute any alcohol or drug abuse patient.[facility] the event this information is protected by the Federal Confidentiality of Alcohol and Drug Abuse Patient Records regulations: The Federal rules restrict any use of the information to criminally investigate or prosecute any alcohol or drug abuse patient.[facility] the event this information is protected by the Federal Confidentiality of Alcohol and Drug Abuse Patient Records regulations: The Federal rules restrict any use of the information to criminally investigate or prosecute any alcohol or drug abuse patient.[facility] the event this information is protected by the Federal Confidentiality of Alcohol and Drug Abuse Patient Records regulations: The Federal rules restrict any use of the information to criminally investigate or prosecute any alcohol or drug abuse patient.[facility] Institute[facility] the event this information is protected by the Federal Confidentiality of Alcohol and Drug Abuse Patient Records regulations: The Federal rules restrict any use of the information to criminally investigate or prosecute any alcohol or drug abuse patient.[facility] the event this information is protected by the Federal Confidentiality of Alcohol and Drug Abuse Patient Records regulations: The Federal rules restrict any use of the information to criminally investigate or prosecute any alcohol or drug abuse patient.[facility] the event this information is protected by the Federal Confidentiality of Alcohol and Drug Abuse Patient Records regulations: The Federal rules restrict any use of the information to criminally investigate or prosecute any alcohol or drug abuse patient.[facility] the event this information is protected by the Federal Confidentiality of Alcohol and Drug Abuse Patient Records regulations: The Federal rules restrict any use of the information to criminally investigate or prosecute any alcohol or drug abuse patient.[facility] the event this information is protected by the Federal Confidentiality of Alcohol and Drug Abuse Patient Records regulations: The Federal rules restrict any use of the information to criminally investigate or prosecute any alcohol or drug abuse patient.[facility] the event this information is protected by the Federal Confidentiality of Alcohol and Drug Abuse Patient Records regulations: The Federal rules restrict any use of the information to criminally investigate or prosecute any alcohol or drug abuse patient.[facility] Institute[facility] the event this information is protected by the Federal Confidentiality of Alcohol and Drug Abuse Patient Records regulations: The Federal rules restrict any use of the information to criminally investigate or prosecute any alcohol or drug abuse patient.[facility] Institute[facility] the event this information is protected by the Federal Confidentiality of Alcohol and Drug Abuse Patient Records regulations: The Federal rules restrict any use of the information to criminally investigate or prosecute any alcohol or drug abuse patient.[facility] Institute[facility] the event this information is protected by the Federal Confidentiality of Alcohol and Drug Abuse Patient Records regulations: The Federal rules restrict any use of the information to criminally investigate or prosecute any alcohol or drug abuse patient.[facility] Institute[facility] the event this information is protected by the Federal Confidentiality of Alcohol and Drug Abuse Patient Records regulations: The Federal rules restrict any use of the information to criminally investigate or prosecute any alcohol or drug abuse patient.[facility] Institute[facility] the event this information is protected by the Federal Confidentiality of Alcohol and Drug Abuse Patient Records regulations: The Federal rules restrict any use of the information to criminally investigate or prosecute any alcohol or drug abuse patient.[facility] Institute[facility] the event this information is protected by the Federal Confidentiality of Alcohol and Drug Abuse Patient Records regulations: The Federal rules restrict any use of the information to criminally investigate or prosecute any alcohol or drug abuse patient.[facility] Institute[facility] the event this information is protected by the Federal Confidentiality of Alcohol and Drug Abuse Patient Records regulations: The Federal rules restrict any use of the information to criminally investigate or prosecute any alcohol or drug abuse patient.[facility] InstituteIn the event this information is protected by the Federal Confidentiality of Alcohol and Drug Abuse Patient Records regulations: The Federal rules restrict any use of the information to criminally investigate or prosecute any alcohol or drug abuse patient.[facility] InstituteIn the event this information is protected by the Federal Confidentiality of Alcohol and Drug Abuse Patient Records regulations: The Federal rules restrict any use of the information to criminally investigate or prosecute any alcohol or drug abuse patient.[facility] InstituteIn the event this information is protected by the Federal Confidentiality of Alcohol and Drug Abuse Patient Records regulations: The Federal rules restrict any use of the information to criminally investigate or prosecute any alcohol or drug abuse patient.[facility] InstituteIn the event this information is protected by the Federal Confidentiality of Alcohol and Drug Abuse Patient Records regulations: The Federal rules restrict any use of the information to criminally investigate or prosecute any alcohol or drug abuse patient.[facility] InstituteIn the event this information is protected by the Federal Confidentiality of Alcohol and Drug Abuse Patient Records regulations: The Federal rules restrict any use of the information to criminally investigate or prosecute any alcohol or drug abuse patient.[facility] InstituteIn the event this information is protected by the Federal Confidentiality of Alcohol and Drug Abuse Patient Records regulations: The Federal rules restrict any use of the information to criminally investigate or prosecute any alcohol or drug abuse patient.[facility] InstituteIn the event this information is protected by the Federal Confidentiality of Alcohol and Drug Abuse Patient Records regulations: The Federal rules restrict any use of the information to criminally investigate or prosecute any alcohol or drug abuse patient.[facility] InstituteIn the event this information is protected by the Federal Confidentiality of Alcohol and Drug Abuse Patient Records regulations: The Federal rules restrict any use of the information to criminally investigate or prosecute any alcohol or drug abuse patient.[facility] InstituteIn the event this information is protected by the Federal Confidentiality of Alcohol and Drug Abuse Patient Records regulations: The Federal rules restrict any use of the information to criminally investigate or prosecute any alcohol or drug abuse patient.[facility] InstituteIn the event this information is protected by the Federal Confidentiality of Alcohol and Drug Abuse Patient Records regulations: The Federal rules restrict any use of the information to criminally investigate or prosecute any alcohol or drug abuse patient.[facility] InstituteIn the event this information is protected by the Federal Confidentiality of Alcohol and Drug Abuse Patient Records regulations: The Federal rules restrict any use of the information to criminally investigate or prosecute any alcohol or drug abuse patient.[facility] InstituteIn the event this information is protected by the Federal Confidentiality of Alcohol and Drug Abuse Patient Records regulations: The Federal rules restrict any use of the information to criminally investigate or prosecute any alcohol or drug abuse patient.[facility] InstituteIn the event this information is protected by the Federal Confidentiality of Alcohol and Drug Abuse Patient Records regulations: The Federal rules restrict any use of the information to criminally investigate or prosecute any alcohol or drug abuse patient.[facility] InstituteIn the event this information is protected by the Federal Confidentiality of Alcohol and Drug Abuse Patient Records regulations: The Federal rules restrict any use of the information to criminally investigate or prosecute any alcohol or drug abuse patient.[facility] InstituteIn the event this information is protected by the Federal Confidentiality of Alcohol and Drug Abuse Patient Records regulations: The Federal rules restrict any use of the information to criminally investigate or prosecute any alcohol or drug abuse patient.[facility] InstituteIn the event this information is protected by the Federal Confidentiality of Alcohol and Drug Abuse Patient Records regulations: The Federal rules restrict any use of the information to criminally investigate or prosecute any alcohol or drug abuse patient.[facility] InstituteIn the event this information is protected by the Federal Confidentiality of Alcohol and Drug Abuse Patient Records regulations: The Federal rules restrict any use of the information to criminally investigate or prosecute any alcohol or drug abuse patient.[facility] InstituteIn the event this information is protected by the Federal Confidentiality of Alcohol and Drug Abuse Patient Records regulations: The Federal rules restrict any use of the information to criminally investigate or prosecute any alcohol or drug abuse patient.[facility] InstituteIn the event this information is protected by the Federal Confidentiality of Alcohol and Drug Abuse Patient Records regulations: The Federal rules restrict any use of the information to criminally investigate or prosecute any alcohol or drug abuse patient.[facility] InstituteIn the event this information is protected by the Federal Confidentiality of Alcohol and Drug Abuse Patient Records regulations: The Federal rules restrict any use of the information to criminally investigate or prosecute any alcohol or drug abuse patient.[facility] InstituteIn the event this information is protected by the Federal Confidentiality of Alcohol and Drug Abuse Patient Records regulations: The Federal rules restrict any use of the information to criminally investigate or prosecute any alcohol or drug abuse patient.[facility] InstituteIn the event this information is protected by the Federal Confidentiality of Alcohol and Drug Abuse Patient Records regulations: The Federal rules restrict any use of the information to criminally investigate or prosecute any alcohol or drug abuse patient.[facility] InstituteIn the event this information is protected by the Federal Confidentiality of Alcohol and Drug Abuse Patient Records regulations: The Federal rules restrict any use of the information to criminally investigate or prosecute any alcohol or drug abuse patient.[facility] InstituteIn the event this information is protected by the Federal Confidentiality of Alcohol and Drug Abuse Patient Records regulations: The Federal rules restrict any use of the information to criminally investigate or prosecute any alcohol or drug abuse patient.[facility] InstituteIn the event this information is protected by the Federal Confidentiality of Alcohol and Drug Abuse Patient Records regulations: The Federal rules restrict any use of the information to criminally investigate or prosecute any alcohol or drug abuse patient.[facility] InstituteIn the event this information is protected by the Federal Confidentiality of Alcohol and Drug Abuse Patient Records regulations: The Federal rules restrict any use of the information to criminally investigate or prosecute any alcohol or drug abuse patient.[facility] InstituteIn the event this information is protected by the Federal Confidentiality of Alcohol and Drug Abuse Patient Records regulations: The Federal rules restrict any use of the information to criminally investigate or prosecute any alcohol or drug abuse patient.[facility] InstituteIn the event this information is protected by the Federal Confidentiality of Alcohol and Drug Abuse Patient Records regulations: The Federal rules restrict any use of the information to criminally investigate or prosecute any alcohol or drug abuse patient.[facility] InstituteIn the event this information is protected by the Federal Confidentiality of Alcohol and Drug Abuse Patient Records regulations: The Federal rules restrict any use of the information to criminally investigate or prosecute any alcohol or drug abuse patient.[facility] InstituteIn the event this information is protected by the Federal Confidentiality of Alcohol and Drug Abuse Patient Records regulations: The Federal rules restrict any use of the information to criminally investigate or prosecute any alcohol or drug abuse patient.[facility] Care Teams (unrecognized sec tion and content) Detective Captain Relationship Specialty Start Date End Date Elliot Decker MD PCP - General Family Medicine 12/19/11 Kina Ernst MD [address] [place] [phone] 102- Colon and Rectal Surgery 06/19/24 Detective Captain Relationship Specialty Start Date End Date Elliot Decker MD PCP - General Family Medicine 12/19/11 Kina Ernst MD [address] [place] [address] Colon and Rectal Surgery 06/19/24 Detective Captain Relationship Specialty Start Date End Date Elliot Decker MD PCP - General Family Medicine 12/19/11 Kina Ernst MD [address] [place] [phone] 768 Colon and Rectal Surgery 06/19/24 Detective Captain Relationship Specialty Start Date End Date Elliot Decker MD PCP - General Family Medicine 12/19/11 Kina Ernst MD [address] [address] Colon and Rectal Surgery 06/19/24 Detective Captain Relationship Specialty Start Date End Date Elliot Decker MD PCP - General Family Medicine 12/19/11 Kina Ernst MD [address] [address] Colon and Rectal Surgery 06/19/24 Detective Captain Relationship Specialty Start Date End Date Elliot Decker MD PCP - General Family Medicine 12/19/11 Kina Ernst MD [address] [address] Colon and Rectal Surgery 06/19/24 Detective Captain Relationship Specialty Start Date End Date Elliot Decker MD PCP - General Family Medicine 12/19/11 Kina Ernst MD [address] [address] Colon and Rectal Surgery 06/19/24 Detective Captain Relationship Specialty Start Date End Date Elliot Decker MD PCP - General Family Medicine 12/19/11 Kina Ernst MD [address] [address] Colon and Rectal Surgery 06/19/24 Detective Captain Relationship Specialty Start Date End Date Elliot Decker MD PCP - General Family Medicine 12/19/11 Kina Ernst MD [address] [address] [address] Colon and Rectal Surgery 06/19/24 Detective Captain Relationship Specialty Start Date End Date Elliot Decker MD PCP - General Family Medicine 12/19/11 Kina Ernst MD [address] [employer] [address] [address] Colon and Rectal Surgery 06/19/24 Detective Captain Relationship Specialty Start Date End Date Elliot Decker MD PCP - General Family Medicine 12/19/11 Kina Ernst MD [address] [employer] [address] [address] Colon and Rectal Surgery 06/19/24 Detective Captain Relationship Specialty Start Date End Date Elliot Decker MD PCP - General Family Medicine 12/19/11 Kina Ernst MD [address] [employer] [address] [address] Colon and Rectal Surgery 06/19/24 Detective Captain Relationship Specialty Start Date End Date Elliot Decker MD PCP - General Family Medicine 12/19/11 Kina Ernst MD [address] [place] [address] Colon and Rectal Surgery 06/19/24 Detective Captain Relationship Specialty Start Date End Date Elliot Decker MD PCP - General Family Medicine 12/19/11 Kina Ernst MD [address] [facility] [address] [place] [address] Colon and Rectal Surgery 06/19/24 Detective Captain Relationship Specialty Start Date End Date Elliot Decker MD PCP - General Family Medicine 12/19/11 Kina Ernst MD [address] [place] [address] Colon and Rectal Surgery 06/19/24 Detective Captain Relationship Specialty Start Date End Date Elliot Decker MD PCP - General Family Medicine 12/19/11 Kina Ernst MD [address] [place] [address] Colon and Rectal Surgery 06/19/24 Detective Captain Relationship Specialty Start Date End Date Elliot Decker MD PCP - General Family Medicine 12/19/11 Kina Ernst MD [address] [facility] [address] [place] [address] Colon and Rectal Surgery 06/19/24 Detective Captain Relationship Specialty Start Date End Date Elliot Decker MD PCP - General Family Medicine 12/19/11 Kina Ernst MD [address] [phone] Colon and Rectal Surgery 06/19/24 Detective Captain Relationship Specialty Start Date End Date Elliot Decker MD PCP - General Family Medicine 12/19/11 Kina Ernst MD [address] [phone] Colon and Rectal Surgery 06/19/24 Abril Gardner RN [address] [address] Specialty 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 Hematology/Oncology 08/28/24 Fred Gonzalez MD [address] [place] [address] [place] [address] Physician Hematology/Oncology 08/28/24 Jennifer Gonzalez, PA-C [address] [place] [address] Physician Small Animal Veterinarian Hematology/Oncology 08/28/24 Detective Captain Relationship Specialty Start Date End Date Elliot Decker MD PCP - General Family Medicine 12/19/11 Kina Ernst MD [address] [phone] Colon and Rectal Surgery 06/19/24 Abril Gardner RN [address] [facility] [place] [address] Specialty 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 Hematology/Oncology 08/28/24 Fred Gonzalez MD [address] [place] [address] Physician Hematology/Oncology 08/28/24 Jennifer Gonzalez PA-C [address] [place] [place] [address] Physician Small Animal Veterinarian Hematology/Oncology 08/28/24 Detective Captain Relationship Specialty Start Date End Date Elliot Decker MD PCP - General Family Medicine 12/19/11 Kina Ernst MD [address] [place] [phone] Colon and Rectal Surgery 06/19/24 Abril Gardner RN [address] [place] [address] Specialty 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 Hematology/Oncology 08/28/24 Fred Gonzalez MD [address] [place] [place] [address] Physician Hematology/Oncology 08/28/24 Jennifer Gonzalez PA-C [address] [facility] [place] [address] Physician Small Animal Veterinarian Hematology/Oncology 08/28/24 Detective Captain Relationship Specialty Start Date End Date Elliot Decker MD PCP - General Family Medicine 12/19/11 Kina Ernst MD [address] [phone] Colon and Rectal Surgery 06/19/24 Abril Gardner, RN [address] [place] [address] Specialty 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 Hematology/Oncology 08/28/24 Fred Gonzlaez MD [address] [facility] [place] [address] Physician Hematology/Oncology 08/28/24 Jennifer Gonzalez PA-C [address] [facility] [place] [address] Physician Small Animal Veterinarian Hematology/Oncology 08/28/24 Detective Captain Relationship Specialty Start Date End Date Elliot Decker MD PCP - General Family Medicine 12/19/11 Kina Ernst MD [address] [phone] Colon and Rectal Surgery 06/19/24 Abril Gardner RN [address] [place] [address] Specialty 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 Hematology/Oncology 08/28/24 Fred Gonzalez MD [address] [facility] [place] [address] Physician Hematology/Oncology 08/28/24 Jennifer Gonzalez PA-C [address] [facility] [place] [address] Physician Small Animal Veterinarian Hematology/Oncology 08/28/24 Detective Captain Relationship Specialty Start Date End Date Elliot Decker MD PCP - General Family Medicine 12/19/11 Kina Ernst MD [address] [phone] Colon and Rectal Surgery 06/19/24 Abril Gardner RN [address] [facility] [place] [address] Specialty 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 Hematology/Oncology 08/28/24 Fred Gonzalez MD [address] [facility] [place] [address] Physician Hematology/Oncology 08/28/24 Jennifer Gonzalez PA-C [address] [facility] [place] [address] Physician Small Animal Veterinarian Hematology/Oncology 08/28/24 Detective Captain Relationship Specialty Start Date End Date Elliot Decker MD PCP - General Family Medicine 12/19/11 Kina Ernst MD [address] [phone] Colon and Rectal Surgery 06/19/24 Abril Gardner RN [address] [facility] [place] [address] Specialty 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 Hematology/Oncology 08/28/24 Fred Gonzalez MD [address] [facility] [place] [address] Physician Hematology/Oncology 08/28/24 Jennifer Gonzalez PA-C [address] [facility] [place] [address] Physician Small Animal Veterinarian Hematology/Oncology 08/28/24 Detective Captain Relationship Specialty Start Date End Date Elliot Decker MD PCP - General Family Medicine 12/19/11 Kina Ernst MD [address] [phone] Colon and Rectal Surgery 06/19/24 Abril Gardner RN [address] [facility] [place] [address] Specialty 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 Hematology/Oncology 08/28/24 Fred Gonzalez MD [address] [facility] [place] [address] Physician Hematology/Oncology 08/28/24 Jennifer Gonzalez, PAOsmarC [address] [facility] [place] [address] Physician Small Animal Veterinarian Hematology/Oncology 08/28/24 Detective Captain Relationship Specialty Start Date End Date Elliot Decker MD PCP - General Family Medicine 12/19/11 Kina Ernst MD [address] [phone] Colon and Rectal Surgery 06/19/24 Abril Gardner, RN [address] [facility] [place] [address] Specialty 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 Hematology/Oncology 08/28/24 Fred Gonzalez MD [address] [facility] [place] [address] Physician Hematology/Oncology 08/28/24 Jennifer Gonzalez PA-C [address] [facility] [place] [address] Physician Small Animal Veterinarian Hematology/Oncology 08/28/24 Detective Captain Relationship Specialty Start Date End Date Elliot Decker MD PCP - General Family Medicine 12/19/11 Kina Ernst MD [address] [phone] Colon and Rectal Surgery 06/19/24 Abril Gardner RN [address] [facility] [place] [address] Specialty 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 Hematology/Oncology 08/28/24 Fred Gonzalez MD [address] [facility] [place] [address] Physician Hematology/Oncology 08/28/24 Jennifer Gonzalez PA-C [address] [facility] [place] [address] Physician Small Animal Veterinarian Hematology/Oncology 08/28/24 Detective Captain Relationship Specialty Start Date End Date Elliot Decker MD PCP - General Family Medicine 12/19/11 Kina Ernst MD [address] [phone] Colon and Rectal Surgery 06/19/24 Abril Gardner RN [address] [facility] [place] [address] Specialty 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 Hematology/Oncology 08/28/24 Fred Gonzalez MD [address] [place] [place] [address] Physician Hematology/Oncology 08/28/24 Jennifer Gonzalez PA-C [address] [facility] [place] [address] Physician Small Animal Veterinarian Hematology/Oncology 08/28/24 Detective Captain Relationship Specialty Start Date End Date Elliot Decker MD PCP - General Family Medicine 12/19/11 Kina Ernst MD [address] [phone] Colon and Rectal Surgery 06/19/24 Abril Gardner, RN [address] [facility] [place] [address] Specialty 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 Hematology/Oncology 08/28/24 Fred Gonzalez MD [address] [facility] [address] [place] [address] Physician Hematology/Oncology 08/28/24 Jennifer Gonzalez PA-C [address] [facility] [place] [address] Physician Small Animal Veterinarian Hematology/Oncology 08/28/24 Detective Captain Relationship Specialty Start Date End Date Elliot Decker MD PCP - General Family Medicine 12/19/11 Kina Ernst MD [address] [phone] Colon and Rectal Surgery 06/19/24 Abril Gardner RN [address] [facility] [place] [address] Specialty 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 Hematology/Oncology 08/28/24 Fred Gonzalez MD [address] [place] [place] [address] Physician Hematology/Oncology 08/28/24 Jennifer Gonzalez PA-C [address] [place] [address] [place] [address] Physician Small Animal Veterinarian Hematology/Oncology 08/28/24 Detective Captain Relationship Specialty Start Date End Date Elliot Decker MD PCP - General Family Medicine 12/19/11 Kina Ernst MD [address] [place] [phone] Colon and Rectal Surgery 06/19/24 Abril Gardner RN [address] [facility] [place] [address] Specialty 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 Hematology/Oncology 08/28/24 Fred oGnzalez MD [address] [place] [address] [place] [address] Physician Hematology/Oncology 08/28/24 Jennifer Gonzalez PA-C [address] [place] [address] [place] [address] Physician Small Animal Veterinarian Hematology/Oncology 08/28/24 Detective Captain Relationship Specialty Start Date End Date Elliot Decker MD PCP - General Family Medicine 12/19/11 Kina Ernst MD [address] [address] Colon and Rectal Surgery 06/19/24 Abril Gardner, RN [address] [place] [address] Specialty 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 Hematology/Oncology 08/28/24 Fred Gonzalez MD [address] [place] [address] Physician Hematology/Oncology 08/28/24 Jennifer Gonzalez PA-C [address] [facility] [place] [address] Physician Small Animal Veterinarian Hematology/Oncology 08/28/24 Detective Captain Relationship Specialty Start Date End Date Elliot Decker MD PCP - General Family Medicine 12/19/11 Kina Ernst MD [address] [phone] Colon and Rectal Surgery 06/19/24 Abril Gardner RN [address] [place] [address] Specialty 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 Hematology/Oncology 08/28/24 Fred Gonzalez MD [address] [place] [address] Physician Hematology/Oncology 08/28/24 Jennifer Gonzalez PA-C [address] [place] [address] Physician Small Animal Veterinarian Hematology/Oncology 08/28/24 Detective Captain Relationship Specialty Start Date End Date Elliot Decker MD PCP - General Family Medicine 12/19/11 Kina Ernst MD [address] [phone] Colon and Rectal Surgery 06/19/24 Abril Gardner, RN [address] [facility] [place] [address] Specialty 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 Hematology/Oncology 08/28/24 Fred Gonzalez MD [address] [facility] [place] [address] Physician Hematology/Oncology 08/28/24 Jennifer Gonzalez PA-C [address] [facility] [address] [place] Physician Small Animal Veterinarian Hematology/Oncology 08/28/24 Detective Captain Relationship Specialty Start Date End Date Elliot Decker MD PCP - General Family Medicine 12/19/11 Kina Ernst MD [address] [phone] Colon and Rectal Surgery 06/19/24 Abril Gardner RN [address] [facility] [place] [address] Specialty 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 Hematology/Oncology 08/28/24 Fred Gonzalez MD [address] [place] [place] [address] Physician Hematology/Oncology 08/28/24 Jennifer Gonzalez PA-C [address] [place] [address] [place] [address] Physician Small Animal Veterinarian Hematology/Oncology 08/28/24 Detective Captain Relationship Specialty Start Date End Date Elliot Decker MD PCP - General Family Medicine 12/19/11 Kina Ernst MD [address] [place] [phone] Colon and Rectal Surgery 06/19/24 Abril Gardner RN [address] [facility] [facility] [place] [address] Specialty 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 Hematology/Oncology 08/28/24 Fred Gonzalez MD [address] [place] [address] [place] [address] Physician Hematology/Oncology 08/28/24 Jennifer Gonzalez PA-C [address] [place] [address] [place] [address] Physician Small Animal Veterinarian Hematology/Oncology 08/28/24 Reason for Visit (unrecogniz ed section and content) Reason Comments Radio Main J1 Reason Comments Established Patient Reason Comments Tumor Board GI Colorectal Reason Comments Cystoscopy-1 Specialty Diagnoses / Procedures Referred By Contac t Referred To Contact Diagnoses Rectal cancer (HCC) Procedures CONSULT TO HEMATOLOGY/ONCOLOGY OFFICE/OUTPATIENT [facility] 60 MINUTES Micha Avina MD [address] [place] [address] Referral ID Status Reason Start Date Expiration Date V isits Requested Visits Authorized [id number] Closed PCP Requested Referral 06/15/2024 06/15/2025 1 1 Reason Comments 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 - Other Reason Comments [place] Program Call - Reason Comments Consult Rectal Cancer Specialty Diagnoses / Procedures Referred By Contac t Referred To Contact Oncology Diagnoses Rectal cancer (HCC) Procedures CONSULT TO ONCOLOGY OFFICE/OUTPATIENT [facility] 60 MINUTES Jeremie Coyne MD [address] [facility] [place] [address] Referral ID Status Reason Start Date Expiration Date V isits Requested Visits Authorized [id number] Closed PCP Requested Referral 07/23/2024 07/23/2025 1 1 Reason Comments Consult Specialty Diagnoses / Procedures Referred By Contac t Referred To Contact Radiation Oncology Diagnoses Rectal cancer (HCC) Procedures RAD/ONC CONSULT OFFICE/OUTPATIENT [facility] 60 MINUTES Micha Avina MD [address] [place] [address] Referral ID Status Reason Start Date Expiration Date V isits Requested Visits Authorized [id number] Closed PCP Requested Referral 06/15/2024 06/15/2025 1 1 Reason Comments TURBT w/ Dr Sanchez Reason Comments 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 - Other Consult notes Reason Comments Lab Orders Specialty Diagnoses / Procedures Referred By Contac t Referred To Contact Radiation Oncology Diagnoses Rectal cancer (HCC) Procedures RAD/ONC CONSULT OFFICE/OUTPATIENT [facility] 60 MINUTES Jeremie Coyne MD [address] [place] [address] Referral ID Status Reason Start Date Expiration Date V isits Requested Visits Authorized [id number] Closed PCP Requested Referral 07/23/2024 07/23/2025 1 [address] Specialty Diagnoses / Procedures Referred By Contac t Referred To Contact CT IMAGING Diagnoses Rectal cancer (HCC) Procedures CT ABD/PEL W IVCON CT ABD & PELVIS W/CONTRAST Fred Gonzalez MD [address] [place] [address] [place] [address] Ct [facility] [place] [address] Referral ID Status Reason Start Date Expiration Date V isits Requested Visits Authorized [id number] Closed Auto-Generate d Referral 08/29/2024 08/29/2025 1 1 Reason Comments Pre-Op Exam Reason Comments Pre-Op Visit Reason Comments Results Reason Comments Rectal Cancer Reason Comments Care Coordination Antiemetics for yvette tment Reason Comments Care Coordination Chemo ed Reason Comments Future Appointment Reason Comments Nutrition Telephone Reason Comments Care Coordination BCG treatments Reason Comments First Time Treatment Education Reason Comments Medication Update capecitabine Reason Comments Radiology NM Specialty Diagnoses / Procedures Referred By Contac t Referred To Contact MOLECULAR & FUNCTIONAL IMAGING Diagnoses Rectal cancer (HCC) Procedures NM PET/CT SKULL-THIGH INITIAL PET IMAGING CT ATTENUATION SKULL BASE MID-THIGH Noah Harrison MD [address] [place] [address] [place] [address] Molecular & Functional Imaging [address] [place] [id number] Referral ID Status Reason Start Date Expiration Date V isits Requested Visits Authorized [id number] Closed Auto-Generate d Referral 08/26/2024 09/25/2025 1 1 Reason Comments Appointment Reason Comments Follow Up Reason Onset Date Comments Simulation Request Form 09/04/2024 Reason Comments Patient Update Reason Comments Appointment Patient Update Reason Comments No Show FOR RECORDS PERTAINING TO PATIENTS WHO ARE [...] BE BASED ON THE PRIMARY CLINICAL RECORDS. [facility]. provides no warranty or guarantee of the accuracy or completeness of information in this document.
--- NOTE | 2025-07-29 14:27 | ED.GENADUL1 ---
HPI HPI - General Adult General Chief complaint: Skin/Abscess/Foreign Body Stated complaint: FACIAL SWELLING Time Seen by Provider: 07/29/25 14:13 Source: patient Mode of arrival: walk-in Limitations: no limitations History of Present Illness HPI narrative: Patient is a 75-year-old male that presents with complaints of left-sided jaw pain after he was eating a tomato and mayonnaise sandwich. He notes that he did have a twinge of pain and then started noticing the swelling. He does not think that he dislocated his jaw. He has no issue with moving his jaw up and down. He has not started on any new medications. He denies any fever or cold sweats since the swelling appeared. He states he felt a bit dizzy in the lobby. Related Data Home Medications ?Medication ?Instructions ?Recorded ?Confirmed gabapentin 100 mg capsule 100 mg PO BID 05/27/23 03/30/24 tizanidine 4 mg tablet 8 mg PO .HS 05/27/23 03/30/24 gabapentin 300 mg capsule 300 mg PO .qhs 03/07/24 03/30/24 aspirin 81 mg tablet,delayed mg 03/30/24 release atorvastatin 40 mg tablet mg 03/30/24 Previous Rx's ?Medication ?Instructions ?Recorded apixaban 5 mg tablet (Eliquis) 5 mg PO BID #60 tabs 03/10/24 metoprolol tartrate 50 mg tablet 50 mg PO BID #60 tabs 03/10/24 amoxicillin 875 mg-potassium 1 tab PO BID 7 days #14 tabs 07/29/25 clavulanate 125 mg tablet Allergies Allergy/AdvReac Type Severity Reaction Status Date / Time Z PACK Allergy Severe rectal Uncoded 07/29/25 14:03 bleeding Opioid HPI Opioid Management Most Recent Opioid Data: Last Pain Scale 2 Today, 14:13 Last ORT Total Score 0 03/07/24, 12:50 Last ORT Risk Category Low Risk 03/07/24, 12:50 Review of Systems ROS Status of ROS 10 or more systems reviewed and unremarkable except as noted in history and below [facility] Medical History Low back pain ?M54.50 - Low back pain, unspecified (ICD-10) Glaucoma ?H40.9 - Unspecified glaucoma (ICD-10) H/O prostate cancer ?Z85.46 - Personal history of malignant neoplasm of prostate (ICD-10) Numbness and tingling ?R20.0 - Anesthesia of skin (ICD-10) ?R20.2 - Paresthesia of skin (ICD-10) Former smoker ?Z87.891 - Personal history of nicotine dependence (ICD-10) Irregular heart beat ?I49.9 - Cardiac arrhythmia, unspecified (ICD-10) Hypertension ?I10 - Essential (primary) hypertension (ICD-10) Surgical History Pacemaker ?Z95.0 - Presence of cardiac pacemaker (ICD-10) H/O lumbosacral spine surgery ?Z98.890 - Other specified postprocedural states (ICD-10) History of appendectomy ?Z90.49 - Acquired absence of other specified parts of digestive tract (ICD-10) Family History Mother Family history of cancer Family history of hypertension Sister Family history of cancer Family history of myocardial infarction Social History Within the past year, how often did you have a drink containing alcohol: never Within the past year, how often did you have six or more drinks on one occasion: never Score interpretation: A score less than 4 is consistent with normal alcohol consumption. Smoking status: Former smoker Non-prescribed substance use: denies use Previous occupational history: retired Highest level of school completed/degree received: high school graduate Are you now , , , , never or living with a partner: living with partner Little interest or pleasure in doing things: not at all Feeling down, depressed, or hopeless: not at all Feel stressed/tense/nervous/anxious/difficulty sleeping: only a little Exam Narrative Exam Narrative: General: No distress, age-appropriate Skin: Warm, dry, no pallor. No rash. Head: Normocephalic, atraumatic. Neck: Supple, non-tender. Moderate amount of swelling at the angle of the mandible, nontender. No palpable hard mass. Eye: Pupils are equal, round and EOMI. No scleral icterus. Ears, Nose, Mouth, and Throat: No nasal mucosal hypertrophy. Oral mucosa is moist, no posterior oropharynx erythema, uvula is mid-line. No purulent drainage noted from Galt or Stensen's ducts Cardiovascular: Regular Rate and Rhythm without murmur, gallop or rub. Respiratory: No accessory muscle use or respiratory distress. Lungs are clear to auscultation, no wheezing, rales or rhonchi Chest Wall: no tenderness Musculoskeletal: Full ROM of all extremities, no calf or popliteal tenderness Neurological: A&O x4. No cranial nerve dysfunction observed. No truncal ataxia. Moves all extremities. Sensation intact. Psychiatric: Cooperative and interactive. Normal mood and affect. Constitutional Vital Signs, click to edit/add: Last Vital Signs Temp 98.7 F 07/29/25 14:03 Pulse 74 07/29/25 14:03 Resp 20 07/29/25 14:03 BP 140/91 07/29/25 14:03 Pulse Ox 98 07/29/25 14:15 O2 Del Method Room Air 07/29/25 14:15 Course Vital Signs Vital signs: Vital Signs Temperature 98.7 F 07/29/25 14:03 Pulse Rate 74 07/29/25 14:03 Respiratory Rate 20 07/29/25 14:03 Blood Pressure 140/91 07/29/25 14:03 Pulse Oximetry 97 07/29/25 14:03 Temperature 98.7 F 07/29/25 14:03 Pulse Rate 74 07/29/25 14:03 Respiratory Rate 20 07/29/25 14:03 Blood Pressure 140/91 07/29/25 14:03 Pulse Oximetry 98 07/29/25 14:15 Oxygen Delivery Method Room Air 07/29/25 14:15 Medical Decision Making [facility] Narrative Medical decision making narrative: Patient is a 75-year-old male that presents with unilateral jaw swelling on the left after eating a tomato and mayonnaise sandwich prior to arrival. Pain is controlled. He does not think that he dislocated his jaw. He has never had anything like this happen before. He is not allergic to tomatoes. He has not started any new medications. Patient appears comfortable sitting on ED cart on arrival. Vital stable. CBC, BMP, amylase, and CT neck soft tissue with contrast ordered. Differential diagnosis:Sialadenitis, Sialolithiasis, Parotitis CBC: No leukocytosis BMP: BUN 22 elevated, creatinine 1.25 within normal limits Amylase 425 CT neck soft tissue's with contrast there is edema with mild enhancement involving the left parotid gland suggesting parotitis. No evidence of sialolith. Patient updated with results and given the clinical and radiographic findings my clinical impression is acute parotitis, likely due to salivary stasis. No signs of systemic infection requiring IV antibiotics or admission. I am going to place him on a 7-day course of Augmentin. I did discuss warm compresses, sour candy, parotid massage, etc. to help with the swelling. Return precautions were discussed such as fever, trismus, dysphagia, purulent drainage etc. or any new or worsening symptoms. Patient was discharged with antibiotics and plan for follow-up with PCP and Dr. Dudley with ENT if no improvement. Differential Diagnosis Differential Diagnosis: Sialadenitis, Sialolithiasis, Parotitis Lab Data Lab results reviewed: Yes I reviewed the patient's lab results Labs: Lab Results 07/29/25 Range/Units 14:40 WBC 9.9 (4.0-11.0) 10^3/uL RBC 4.95 (4.70-6.10) 10^6/uL Hgb 14.6 (14.0-18.0) g/dL Hct 44.5 (42.0-54.0) % MCV 89.9 (80.0-94.0) fL MCH 29.5 (25.9-34.0) pg MCHC 32.8 (29.9-35.2) g/dL RDW 13.4 (11.0-15.0) % Plt Count 194 (150-450) 10^3/uL MPV 10.0 (9.5-13.5) fL Sodium 140 (136-145) mmol/L Potassium 4.6 (3.5-5.1) mmol/L Chloride 103 (98-107) mmol/L Carbon Dioxide 28.9 (21.0-32.0) mmol/L Anion Gap 12.7 BUN 22.0 H (7.0-18.0) mg/dL Creatinine 1.25 (0.70-1.30) mg/dL Est GFR ( Amer) >60 (>=60 mL/min/1.73m^2) Est GFR (Non-Af Amer) 56 L (>=60 mL/min/1.73m^2) BUN/Creatinine Ratio 17.6 Glucose 116 H (74-106) mg/dL Calcium 8.8 (8.5-10.1) mg/dL Amylase 425 H* (25-115) U/L Imaging Data CT Neck Soft Tissue: Attestation: I have reviewed the pertinent imaging results. Radiologist's impression: ITS Impressions Soft Tissue Neck CT 07/29/25 15:45 IMPRESSION: There is edema with mild enhancement involving the left parotid gland suggesting parotitis. No evidence of sialolith. Impression dictated by: Merritt Banks M.D. 07/29/2025 3:54 PM Dictation Location: [place] [address] Electronically authenticated by: [id number] Y Date: 07/29/2025 15:54 Discharge Plan Discharge Chief Complaint: Skin/Abscess/Foreign Body Clinical Impression: Acute parotitis Patient Disposition: Home, Self-Care Time of Disposition Decision: 16:15 Condition: Good Mode of Transportation: Private Vehicle Prescriptions / Home Meds: New amoxicillin-pot clavulanate 875-125 mg tablet 1 tab PO BID 7 Days Qty: 14 0RF No Action atorvastatin 40 mg tablet aspirin 81 mg tablet,delayed release (DR/EC) gabapentin 100 mg capsule 100 mg PO BID tizanidine 4 mg tablet 8 mg PO .HS gabapentin 300 mg capsule 300 mg PO .qhs metoprolol tartrate 50 mg Tablet 50 mg PO BID Qty: 60 11RF Eliquis 5 mg Tablet 5 mg PO BID Qty: 60 11RF Print Language: Maldivian Additional Instructions: You have swelling in the left parotid gland on CT scan. This is suggestive of parotitis, inflammation of the parotid gland. He will be placed on an antibiotic for a week. Finish this to completion even if symptoms resolve before. Maintain hydration. You can use lemon drops or sour candy to promote salivary flow. Warm compresses to the affected area to help with pain. Parotid massage, gently from back to front. Tylenol or ibuprofen as tolerated for pain as directed on box. Return to the emergency department if you have any worsening pain/swelling, fever, inability to open your jaw, painful swallowing, or any infected drainage present. Referrals: Jaron Chester MD [Primary Care Provider, Family Practice] - 1 week Michelle Dudley MD [Physician, Ear, Nose, Throat] - As needed Discharge Date/Time: 07/29/25 16:33
[2025-07-29 14:57] LABS: Hematocrit 44.5 % (42.0-54.0); Hemoglobin 14.6 g/dL (14.0-18.0); Mean Corpuscular HGB Conc 32.8 g/dL (29.9-35.2); Mean Corpuscular Hemoglobin 29.5 pg (25.9-34.0); Mean Corpuscular Volume 89.9 fL (80.0-94.0); Platelet Count 194 10^3/uL (150-450); Red Blood Count 4.95 10^6/uL (4.70-6.10); White Blood Count 9.9 10^3/uL (4.0-11.0)
[2025-07-29 15:10] LABS: Anion Gap 12.7; Blood Urea Nitrogen 22.0 mg/dL (7.0-18.0); Calcium 8.8 mg/dL (8.5-10.1); Carbon Dioxide 28.9 mmol/L (21.0-32.0); Chloride 103 mmol/L (98-107); Estimated GFR (African America >60 (>=60 mL/min/1.73m^2); Estimated GFR (Non-African Ame 56 (>=60 mL/min/1.73m^2); Glucose 116 mg/dL (74-106); Potassium 4.6 mmol/L (3.5-5.1); Sodium 140 mmol/L (136-145)
[2025-07-29 15:16] LABS: Amylase 425 U/L (25-115)
--- NOTE | 2025-07-29 15:45 | CT_ITS ---
The [address] [address] Patient Name: MOUSTAPHA MAC MRN: [id number] date: 1950 Sex: M Assigned Patient Location: ER Current Patient Location: Accession/Order Number: [id number] Exam Date: 07/29/2025 15:35 Report Date: 07/29/2025 15:54 At the request of: VEE FRANCISCO Procedure: CT soft tissue neck w con CT soft tissue neck w con 07/29/2025 3:42 PM SIGNS AND SYMPTOMS: Left side jaw swelling, r/o abscess, sialolithiasi CONTRAST: 100 mL of intravenous Omnipaque 300 TECHNIQUE: Multidetector CT axial slices of the soft tissues of the neck were obtained with IV contrast. Sagittal and coronal reformats were reconstructed. CT was performed with one or more of the following dose reduction techniques: Automated exposure control, adjustment of the mA and/or kV according to patient size, or use of iterative reconstruction technique. COMPARISON: None FINDINGS: Soft tissues of the orbits are within normal limits. The soft tissues of the infratemporal fossa fossa structures show no acute abnormality. Mucosal surfaces of the nasopharynx, oropharynx, hypopharynx, glottic, and subglottic airways are grossly unremarkable. The right parotid gland, and submandibular glands, and the thyroid gland are within normal limits. There is edema with mild enhancement involving the left parotid gland suggesting parotitis. Edema extends into the adjacent subcutaneous soft tissues. Calcified plaque is noted in the carotid bifurcations in the intracranial segments of the internal carotid arteries. Calcified plaque is noted in the thoracic aorta and origins of the great vessels. The visualized lung parenchyma shows no acute pathology. No acute bony abnormalities are appreciated. Degenerative changes are noted in the cervical spine. There is evidence of prior sternotomy. The skull base, craniocervical junction, atlantoaxial joints are within normal limits. The paranasal sinuses are within normal limits. CT/CT soft tissue neck w con IMPRESSION: There is edema with mild enhancement involving the left parotid gland suggesting parotitis. No evidence of sialolith. Impression dictated by: Merritt Banks M.D. 07/29/2025 3:54 PM Dictation Location: [place] [address] Electronically authenticated by: [id number] Y Date: 07/29/2025 15:54
== END 2025-07-29 16:33 | disposition home or self-care (01) ==
PROVIDERS: Physician Assistant; Emergency Provider Emergency Medicine; PCP Family Medicine
DX: K11.21 Acute sialoadenitis (principal)
CPT/HCPCS: 36415; 70491; 80048; 82150; 85027; 99285; Q9967

== ENCOUNTER 2025-07-30 12:54 | Outpatient (OUT) | payer MEDICARE, OTHER, SELFPAY ==
--- OUTSIDE RECORDS SUMMARY | 2025-07-28 10:00 | XMS_ITS | Encounter Summary ---
Author Organization [facility] Address [address] [place] [address] Care Team Providers Care Ghost Writer Name Role Phone Jaron Chester MD Primary Care Provider [phone] Modesto Becerra MD Unavailable Sp Chacon MD Unavailable [phone] Encounter Details Date Type Department Care Team (Latest Contact Info) Description 07/28/2025 10:00 AM EDT Ancillary Procedure [facility] [address] [place] [id number] Adjustment and management of cardiac pacemaker Social History Tobacco Use Types Packs/Day Years Used Date Smoking Tobacco: Former Cigarettes Alcohol Use Standard Drinks/Week Comments Not Currently 0 (1 standard drink = 0.6 oz pur e alcohol) [facility] Utilities Answer Date Recorded In the past 12 months has [employer] electric, gas, oil, or water company threatened to shut off services in your home? No 06/04/2024 Humiliation, Afraid, Rape, and Kick questionnair e Answer Date Recorded Within the last year, have y ou been afraid of your partner or ex-partner? No 06/04/2024 Emotionally Abused Not on file 06/04/2024 Physically Abused Not on file 06/04/2024 Sexually Abused Not on file 06/04/2024 Overall Financial Resource Strain (CARDIA) Answe r Date Recorded How hard is it for you to pa y for the very basics like food, housing, medical care, and heating? Not hard at all 06/04/2024 PHQ-2 Answer Date Recorded Patient Health Questionnaire-2 Score 0 04/09/2023 Transportation Answer Date Recorded In the past 12 months, has l ack of transportation kept you from medical appointments or from getting medications? No 06/04/2024 Lack of Transportation (Non-Medical) Not on file 06/04/2024 Housing Stability Vital Sign Answer Dylan e Recorded Unable to Pay for Housing in the Last Year Not o n file 06/04/2024 Number of Places Lived in the Last Year Not on f ile 06/04/2024 In the last 12 months, was t here a time when you did not have a steady place to sleep or slept in a longterm (including now)? No 06/04/2024 Hunger Vital Sign Answer Date Recorded Within the past 12 months, y ou worried that your food would run out before you got the money to buy more. Never true 06/04/20 24 Ran Out of Food in the Last Year Not on file 06/04/2024 Comments Unknown Sex and Gender Information Value Date Recorded Sex Assigned at Unknown 06/08/2025 10:41 PM EDT Legal Sex Male 12:43 AM EDT Gender Identity Choose not to disclose 10:41 PM EDT Sexual Orientation Choose not to disclose 2024 10:41 PM EDT documented as of this encounter Plan of Treatment Upcoming Encounters Date Type Department Care Team (Late st Contact Info) Description 08/03/2025 10:45 AM EDT Ancillary Procedure [facility] [address] [place] [address] documented as of this encounter Procedures Procedure Name Priority Date/Time Associated Diagnosis Comments CARDIAC DEVICE CHECK CHECK - REMOTE Routine 07/30/2025 12:29 PM EDT Adjustment and management of cardiac pacemaker documented in this encounter Results * CARDIAC DEVICE CHECK - REMOTE - PACEMAKER (07/30/2025 12:29 PM EDT) Modesto Becerra MD CV IMPLANTABLE CARDIAC DEVICE MD OCEDURES Final Result CPACS documented in this encounter Visit Diagnoses Diagnosis Adjustment and management of cardiac pacemaker Fitting and adjustment of cardiac pacemaker documented in this encounter Care Teams Ghost Writer Relationship Specialty Start Date End Date Jaron Chester MD [address] [facility] [place] [address] PCP - General 11/06/22 Modesto Becerra MD [address] [place] [address] Consulting Physician Electrophysiology 03/26/23 Sp Chacon MD [address] [place] [address] Surgeon Neurosurgery 03/26/23 documented as of this encounter
--- OUTSIDE RECORDS SUMMARY | 2025-07-30 12:57 | XMS_ITS | Encounter Summary ---
Author Organization [facility] Address [address] [place] [address] Care Team Providers Care Lan Specialist Name Role Phone Jaron Chester MD Primary Care Provider [phone] Modesto Becerra MD Unavailable Sp Chacon MD Unavailable [phone] Encounter Details Date Type Department Care Team (Late st Contact Info) Description 05/27/2025 Orders Only [facility] Cardiology [facility] [address] [place] [address] Arianna Smith MD [address] [place] [address] Social History Tobacco Use Types Packs/Day Years Used Date Smoking Tobacco: Former Cigarettes Alcohol Use Standard Drinks/Week Comments Not Currently 0 (1 standard drink = 0.6 oz pur e alcohol) [facility] Utilities Answer Date Recorded In the past 12 months has e electric, gas, oil, or water company threatened [...] place to sleep or slept in a mcfp (including now)? No 06/04/2024 Hunger Vital Sign [...] Description 08/03/2025 10:45 AM EDT Ancillary Procedure [facility] Heart at [facility] [address] [place] [address] documented as of this encounter Procedures Procedure Name Priority Date/Time Associated Diagnosis Comments CARDIAC DEVICE CHECK - REMOTE - PACEMAKER Routine 05/27/2025 12:00 AM EDT documented in this encounter Results * Cardiac device check - Remote pacemaker (05/27/2025 12:00 AM EDT) Anatomical Region Laterality Modality Other 05/27/2025 Arianna Smith MD CV IMPLANTABLE CARDIAC DEVICE PROCEDURES Final Result documented in this encounter Visit Diagnoses Not on filedocumented in this encounter Care Teams Lan Specialist Relationship Specialty Start Date End Date Jaron Chester MD [address] [facility] [address] [address] PCP - General 11/06/22 Modesto Becerra MD [address] [place] [address] Consulting Physician Electrophysiology 03/26/23 Sp Chacon MD [address] [place] [address] Surgeon Neurosurgery 03/26/23 documented as of this encounter
--- OUTSIDE RECORDS SUMMARY | 2025-07-30 12:57 | XMS_ITS | Encounter Summary ---
Author Organization [facility] Address [address] [place] [address] Care Team Providers Care Athletic Coordinator Name Role Phone Jaron Chester MD Primary Care Provider [phone] Modesto Becerra MD Unavailable Sp Chacon MD Unavailable [phone] Encounter Details Date Type Department Care Team (Late st Contact Info) Description 03/12/2025 Orders Only [facility] Cardiology Clinic [address] [place] [address] Modesto Becerra MD [address] [place] [address] Social History Tobacco Use Types Packs/Day Years Used Date Smoking Tobacco: Former Cigarettes Alcohol Use Standard Drinks/Week Comments Not Currently 0 (1 standard drink = 0.6 oz pur e alcohol) [facility] Utilities Answer Date Recorded In the past [...] place to sleep or slept in a long term (including now)? No 06/04/2024 Hunger Vital Sign [...] Description 08/03/2025 10:45 AM EDT Ancillary Procedure [facility] Heart at [place] [address] [place] [address] documented as of this encounter Procedures Procedure Name Priority Date/Time Associated Diagnosis Comments CARDIAC DEVICE CHECK - REMOTE - PACEMAKER Routine 03/12/2025 12:00 AM EDT documented in this encounter Results * Cardiac device check - Remote pacemaker (03/12/2025 12:00 AM EDT) Anatomical Region Laterality Modality Other 03/12/2025 Modesto Becerra MD CV IMPLANTABLE CARDIAC DEVICE [place] OCEDURES Final Result documented in this encounter Visit Diagnoses Not on filedocumented in this encounter Care Teams Athletic Coordinator Relationship Specialty Start Date End Date Jaron Chester MD [address] [facility] [address] [address] PCP - General 11/06/22 Modesto Becerra MD [address] [place] [address] Consulting Physician Electrophysiology 03/26/23 Sp Chacon MD [address] [place] [address] Surgeon Neurosurgery 03/26/23 documented as of this encounter
--- OUTSIDE RECORDS SUMMARY | 2025-07-30 12:57 | XMS_ITS | Encounter Summary ---
Author Organization [facility] Address [address] [place] [address] Care Team Providers Care Plaster Mold Maker Name Role Phone Jaron Chester MD Primary Care Provider [phone] Modesto Becerra MD Unavailable Sp Chacon MD Unavailable [phone] Encounter Details Date Type Department Care Team (Late st Contact Info) Description 04/26/2025 Orders Only [facility] Cardiology Clinic [address] [place] [address] Modesto Becerra MD [address] [place] [address] Social History Tobacco Use Types Packs/Day Years Used Date Smoking Tobacco: Former Cigarettes Alcohol Use Standard Drinks/Week Comments Not Currently 0 (1 standard drink = 0.6 oz pur e alcohol) [facility] Utilities Answer Date Recorded In the [...] place to sleep or slept in a chcf (including now)? No 06/04/2024 Hunger Vital Sign [...] Description 08/03/2025 10:45 AM EDT Ancillary Procedure [facility] Heart at [place] [address] [place] [address] documented as of this encounter Procedures Procedure Name Priority Date/Time Associated Diagnosis Comments CARDIAC DEVICE CHECK - REMOTE - PACEMAKER Routine 04/26/2025 12:00 AM EDT documented in this encounter Results * Cardiac device check - Remote pacemaker (04/26/2025 12:00 AM EDT) Anatomical Region Laterality Modality Other 04/26/2025 Modesto Becerra MD CV IMPLANTABLE CARDIAC DEVICE [place] OCEDURES Final Result documented in this encounter Visit Diagnoses Not on filedocumented in this encounter Care Teams Plaster Mold Maker Relationship Specialty Start Date End Date Jaron Chester MD [address] [facility] [address] [address] PCP - General 11/06/22 Modesto Becerra MD [address] [place] [address] Consulting Physician Electrophysiology 03/26/23 Sp Chacon MD [address] [place] [address] Surgeon Neurosurgery 03/26/23 documented as of this encounter
--- OUTSIDE RECORDS SUMMARY | 2025-07-30 12:57 | XMS_ITS | Clinical Summary ---
Author Organization [facility] Address [address] [place] [address] Care Team Providers Care Transplant Nurse Name Role Phone Jaron Chester MD Primary Care Provider [phone] Modesto Becerra MD Unavailable Sp Chacon MD Unavailable [phone] Allergies Active Allergy Reactions Criticality Noted Date Comments Azithromycin Other 08/16/2022 Pt states he started having bloody stools after taking azithromycin Medications aspirin 81 mg EC tablet Take 81 mg by mouth in the morning. Active atorvastatin (Lipitor) 40 mg tabletIndications:H yperlipidemia, unspecified hyperlipidemia type Take 1 tablet (40 mg) by mouth in the morning. 90 tablet 3 4 10/13/20 25 Active metoprolol tartrate (Lopressor) 50 mg tablet Take 50 mg by mouth two times daily. Active Active Problems Problem Noted Date Diagnosed Date Malignant neoplasm of overlapping sites of bladd er 08/31/2024 History of prostate cancer 08/17/2024 Obesity, Class II, BMI 35-39.9 06/26/2024 TEJ (obstructive sleep apnea) 06/23/2024 Encounter for support and co ordination of transition of care 06/22/2024 Overview (06/30/2024): Indication for Surgery: CAD Admit 06/11/24 Preop LVEF: 55% RVF: Normal Cards: Srinivas Rivera EKG: A paced, underlying SB 50s per [...] mass demonstrating adenocarcinoma. He was transferred to [facility] for further evaluation. He was initially admitted [...] Heparin infusion. He was transferred to the HEAT TREATER/PA service on 06/15. He was started on aspirin. Airway Difficulty: Grade I - George Pacing Wires: X4 Ventricular wires (pull) Surgeries and Major Events: 06/18/2024: CABGx3 (WREN-LAD, SVG-OM1, SVG-PDA), MAZE, RUSS Clip (35), Right atrial Pacer lead A/P of Major Active Problems: Transferred to [facility] on 06/21/24 Neuro: Post op pain: S/p pecs block 06/20/2024. States pain is controled. Continue PRN Tylenol/Oxycodone/Ultram. Cardiac: Sick sinus syndrome s/p pacemaker: intra-op issues with intrinsic PPM, right atrial lead placed and connected. Device check 06/19: AP, CERTIFIED MEDICAL TECHNICIAN ASSISTANT. Continue DDD pacing @ 100bpm. No RA intrinsic with rare slow ventricular escape beats. Postop device check 06/22 Base rate restored to 60bpm from 100bpm . Discussed w/ EP 06/25 (Dr. Cole), post op device check is adequate Afib: [...] and reviewed post op findings w/ [facility] traffic division commanding officer. Hematology: Coagulopathy: s/p OR. Required 2 platelet. Resolved, plts normalized. Acute blood loss anemia: s/p OR. Transfused 1 unit of PRBC's on 06/23. Current H&H 9.0/28.7 Endo: Stress Hyperglycemia: No DM history. Perioperative insulin resistance and exacerbation of hyperglycemia. SSI for glycemic control. DC'd accu checks Discharge: 74 yr old male who lives in [place], [place] (near [place]). PT recs SNF. CM following, bed and transport were arranged, ok to transfer today per CTS. Prefers to follow up locally d/t distance (PCP 1 week after discharge from SNF, [employer] in 4 weeks). Will f/u at for [facility]--appt requested w/ Dr. Avina within a month Discharge Planning: Anticipated Discharge Date: 06/26 Barriers to Discharge: No Barriers to Discharge Care Management Discharge Needs: Needs Prior to Discharge: To Be Determined Hypervolemia 06/22/2024 Atelectasis 06/19/2024 Overview (06/30/2024): CKD (chronic kidney disease) stage 3, GFR 30-59 ml/min 06/19/2024 Overview (06/30/2024): RVF (right ventricular failure) 06/19/2024 ABLA (acute blood loss anemia) 06/18/2024 Overview (06/30/2024): Stress hyperglycemia 06/18/2024 Overview (06/30/2024): Postoperative pain 06/18/2024 Overview (06/30/2024): Obesity, Class I, BMI 30-34.9 06/18/2024 Overview (06/30/2024): Pacemaker 06/15/2024 Overview (06/30/2024): Chronic anticoagulation 06/12/2024 Overview (06/30/2024): Last Assessment & Plan: Continue heparin infusion per nomogram. Hyperlipidemia 06/12/2024 Overview (06/30/2024): Last Assessment & Plan: Continue daily statin. Atrial fibrillation, chronic 06/12/2024 Overview (06/30/2024): Last Assessment & Plan: Continue metoprolol and heparin infusion Hypertension 06/12/2024 Overview (06/30/2024): Last Assessment & Plan: Continue home regimen of metoprolol BID Coronary artery disease 06/12/2024 Overview (06/30/2024): Positive stress test OSH that led to LHC-CAD with MV CAD Last Assessment & Plan: Cardiology consulted/following, appreciate recs. Consult placed to CTS for possible revascularization and timing. Continue beta nani, statin and heparin infusion for now. Rectal cancer 06/11/2024 Overview (06/30/2024): Pt reports rectal bleed after starting apixiban, underwent colonoscopy 06/05 that showed multiple polyps throughout the colon and a 2.5cm polyp in the rectum suspicious for malignancy, biopsy results confirming invasive adenocarcinoma Last Assessment & Plan: OSH colonoscopy 06/05 revealed 2.5cm rectal polyp consistent with colorectal adenocarcinoma. CEA 3. Chest CT with non calcified nodule in left lower lobe. CT abdomen/pelvis noted right hepatic lobe nodule and pancreatic head nodule. MRI pelvis consistent with T3bN0 low rectal cancer. Consult placed to medical oncology for possible treatment prior to surgical intervention. Will present at Colorectal Tumor Board hopefully next Saturday, but will need to receive requested path from OSH, so next week may not be feasible. At this time, waiting on further cardiology evaluation/recommendations for treatment of his CAD and what time frame this should occur in relation to treatment for rectal cancer. Rectal mass 06/06/2024 Triple vessel coronary artery disease 06/04/2024 Anemia 05/21/2024 Abnormal stress test 05/08/2024 Atrial fibrillation 04/24/2024 Pneumonia 04/24/2024 Essential (primary) hypertension 08/27/2023 08/27/2023 Nicotine dependence 08/27/2023 08/27/2023 Obstructive sleep apnea of child 08/27/2023 08/27/2023 Severe claudication 05/08/2023 Assessment & Plan (05/08/2023 10:23 AM EDT): This is a 73-year-old gentleman with bilateral [...] will see him in about 3 months. Chest pain 12/22/2021 Edema of lower extremity 12/22/2021 Assessment & Plan (11/12/2022 4:15 PM EST): -this is chronic, he does not want to start a diuretic at this time -discussed pending his results from the echo he will have sent over we may need to start some sort of diuretic such as thiazide, MRA, and any additional medications indicated Syncope 12/22/2021 Tight chest 12/22/2021 Cardiac device in situ Overview (11/12/2022): S/p PPM for SSS Assessment & Plan (11/12/2022 4:14 PM EST): -no concerns on device check -follow up with device check in 6 months Sick sinus syndrome Assessment & Plan (11/12/2022 4:17 PM EST): -s/p PPM -no concerns on device check, 45% RA paced, 7% RV paved -no concerns at this time for pacing induced cardiomyopathy Encounters Date Type Department Care Team Description 07/28/2025 10:00 AM EDT Ancillary Procedure [facility] [address] [place] [phone] Adjustment and management of cardiac pacemaker 07/28/2025 Orders Only [facility] [address] [place] [phone] Modesto Becerra MD 06/28/2025 12:35 PM EDT Ancillary Procedure [facility] [address] [place] [phone] Adjustment and management of cardiac pacemaker 06/28/2025 11:25 AM EDT Ancillary Procedure [facility] [address] [place], [place] [address] [address] Adjustment and management of cardiac pacemaker 06/27/2025 Orders Only [facility] [address] [place], [place] [address] [address] Arianna Smith MD 06/09/2025 8:30 AM EDT Ancillary Procedure [facility] [address] [place], [place] [address] [address] Adjustment and management of cardiac pacemaker 05/27/2025 10:10 AM EDT Ancillary Procedure [facility] [address] [place] [phone] Adjustment and management of cardiac pacemaker 05/27/2025 Orders Only [facility] [address] [place] [address] Modesto Becerra MD 05/27/2025 Orders Only [facility] [address] [place] [address] Arianna Smith MD from Last 3 Months Immunizations Immunization Administration Dates Next Due Influenza, High Dose Seasona l, Preservative Free 09/12/2022,07/29/2017 Influenza, High-dose Seasona l, Quadrivalent, Preservative Free 11/14/2023,08/31/2021 Influenza, injectable, quadr ivalent, preservative free 11/18/2017 Influenza, trivalent, adjuvanted 08/10/2020 Moderna 12 YR UP Vaccine BiValent Booster 2020 Pneumococcal Conjugate PCV 13 07/29/2017 Pneumococcal Polysaccharide PPV23 11/19/2016 Unspecified Sars-Cov-2 Vaccination 10/20/2021,,01/06/2021 Family History Medical History Relation Name Comments Coronary artery disease Mother Relation Name Status Comments Brother Father Mother Sister Social History Tobacco Use Types Packs/Day Years Used Date Smoking Tobacco: Former Cigarettes Tobacco Cessation:Counseling Given: Not Answered Alcohol Use Standard Drinks/Week Comments Not Currently 0 (1 standard drink = 0.6 oz pur e alcohol) [facility] Utilities Answer Date Recorded In the past 12 months has e electric, gas, oil, or water [employer] threatened to shut off services in your [...] place to sleep or slept in a retirement (including now)? No 06/04/2024 Hunger Vital Sign [...] not to disclose 2024 10:41 PM EDT Last Filed Vital Signs Vital Sign Reading Time Taken Comments Blood Pressure 154/80 03/11/2025 11:15 AM EDT Pulse 66 03/11/2025 11:15 AM EDT Temperature 36 C (96.8 F) 06/11/2024 11:31 AM EDT Respiratory Rate 22 06/11/2024 9:32 AM EDT Oxygen Saturation 96% 03/11/2025 11:15 AM EDT Inhaled Oxygen Concentration - - Weight 97.5 kg (215 lb) 03/11/2025 11:15 AM EDT Height 172.7 cm (5' 8 ) 03/11/2025 11:15 AM EDT Body Mass Index 32.69 03/11/2025 11:15 AM EDT Plan of Treatment Upcoming Encounters Date Type Department Care Team (Late st Contact Info) Description 08/03/2025 10:45 AM EDT Ancillary Procedure [facility] [address] [place] [address] Health Maintenance Due Date Last Done Comments Medicare Annual Wellness (AWV) 1950 Depression Screening 1960 Adult Tetanus 1970 Zoster Vaccines (1 of 2) 1998 Fall Risk Screening 2013 COVID-19 Vaccine ( season) 2025 11/14/2023, 10/31/2021, 10/20/2021, Additional history exists Influenza Vaccine (#1) 2025 , 09/12/2022, 08/31/2021, Additional history exists Pneumococcal Vaccine: 50+ Years Completed 07/29/2017, 11/19/2016 FOBT Discontinued 06/04/2024 Sigmoidoscopy Discontinued 07/22/2024 Colonoscopy Discontinued 08/20/2024, 06/05/2024 Colorectal Cancer Screening Discontinued CT Colonography Discontinued FIT-DNA Discontinued FIT Discontinued HIB Vaccines Aged Out No longer eligi ble based on patient's age to complete this topic HPV Vaccines Aged Out No longer eligi ble based on patient's age to complete this topic IPV Vaccines Aged Out No longer eligi ble based on patient's age to complete this topic Meningococcal B Vaccine Aged Out No l onger eligible based on patient's age to complete this topic Meningococcal Vaccine Aged Out No purvi kristofer eligible based on patient's age to complete this topic Rotavirus Vaccines Aged Out No longer eligible based on patient's age to complete this topic Medical Devices Implanted Type Area Bilingual Legal Assistant Device Identifier Shelf Expiration Date Model / Serial / Lot Pacemaker Chest Biotronik Description:Pt has a Biotron ik Edora 8 DR-T dual chamber pacemaker- serial [id number] lead model solia S45- RV lead model solia S53- conditional for 3T and 1.5- must be in MRI mode- placed by [facility]. Becerra at [facility] 03/2022- LK 01/03/23 Procedures Procedure Name Priority Date/Time Associated Diagnosis Comments CARDIAC DEVICE CHECK CHECK - REMOTE Routine 07/30/2025 12:29 PM EDT Adjustment and management of cardiac pacemaker CARDIAC DEVICE CHECK - REMOTE - PACEMAKER Routine 07/28/2025 12:00 AM EDT CARDIAC DEVICE CHECK CHECK - REMOTE Routine 06/30/2025 7:54 PM EDT Adjustment and management of cardiac pacemaker CARDIAC DEVICE CHECK CHECK - REMOTE Routine 06/30/2025 7:48 PM EDT Adjustment and management of cardiac pacemaker CARDIAC DEVICE CHECK - REMOTE - PACEMAKER Routine 06/27/2025 12:00 AM EDT CARDIAC DEVICE CHECK CHECK - REMOTE Routine 06/15/2025 4:43 PM EDT Adjustment and management of cardiac pacemaker CARDIAC DEVICE CHECK CHECK - REMOTE Routine 06/14/2025 11:23 AM EDT Adjustment and management of cardiac pacemaker CARDIAC DEVICE CHECK CHECK - REMOTE Routine 06/08/2025 12:54 PM EDT Adjustment and management of cardiac pacemaker CARDIAC DEVICE CHECK - REMOTE - PACEMAKER Routine 05/27/2025 12:00 AM EDT CARDIAC DEVICE CHECK - REMOTE - PACEMAKER Routine 05/27/2025 12:00 AM EDT CARDIAC DEVICE CHECK CHECK - REMOTE Routine 05/25/2025 11:11 AM EDT Adjustment and management of cardiac pacemaker DIAGNOSTIC COLONOSCOPY Routine 06/05/2024 5:45 PM EDT Hematochezia OCCULT BLOOD X 1, STOOL Routine 06/04/2024 2:04 PM EDT from Last 3 Months or Most Recently Relevant to Health Maintenance Results * CARDIAC DEVICE CHECK - REMOTE - PACEMAKER (07/30/2025 12:29 PM EDT) Only the most recent of7 resultswithin the time period is included. us Modesto Becerra MD CV IMPLANTABLE CARDIAC DEVICE NE OCEDURES Final Result CPACS * Cardiac device check - Remote pacemaker (07/28/2025 12:00 AM EDT) Only the most recent of4 resultswithin the time period is included. Anatomical Region Laterality Modality Other 07/28/2025 us Modesto Becerra MD CV IMPLANTABLE CARDIAC DEVICE NE OCEDURES Final Result * Diagnostic Colonoscopy (06/05/2024 5:45 PM EDT) Anatomical Region Laterality Modality Other Narrative 06/05/2024 11:53 PM EDT Table formatting from the original result was not included. Colonoscopy Procedure Note Procedure: Colonoscopy with biopsies Indications: 74 y.o. male with PMHx of CAD, Afib on Eliquis, SSS s/p pacemaker, presenting for EGD and Colonoscopy for clearance prior to possible CABG, in the setting of rectal bleeding. Hematochezia Sedation: MAC Medications: No administrations occurring from 1631 to 1750 on 06/05/24 Attending Physician: Elisa Tom MD Hairspring Studder: Mica Moraes DO Procedure Details Informed consent was obtained for the procedure, including sedation. Risks of perforation, hemorrhage, adverse drug reaction and aspiration were discussed. The patient was placed in the left lateral decubitus position. The patient was monitored continuously with ECG tracing, pulse oximetry, blood pressure monitoring, and direct observations. A rectal examination was performed. The colonoscope was inserted into the rectum and advanced under direct vision to the cecum, which was identified by the ileocecal valve and appendiceal orifice. A careful inspection was made as the colonoscope was withdrawn, including a retroflexed view of the rectum; findings and interventions are described below. Appropriate photodocumentation was obtained. Findings: Fair bowel prep. The cecum appeared oscar. There were multiple scattered sessile polyps noted in the ascending colon and hepatic flexure, not removed on today's examination. There was an inverted diverticulosis vs. Polyp, which was biopsied in the transverse colon. There were a few scattered semi-sessile polyps in the transverse colon, descending colon, and sigmoid colon, appearing benign. There was evidence of sigmoid diverticulosis. In the rectum, approximately 1-2 cm proximal to the dentate line, there was evidence of a 2.5 cm rectal polyp, with central depression and heaped up edges, suspicious for rectal cancer. This was on the left lateral wall of the rectum. Multiple biopsies were taken to rule out malignancy. There was evidence of external hemorrhoids. Quality of colonic prep: fair Withdrawal time: 21 minutes Procedure Events Event Event Time CLN SCOPE IN 06/05/2024 5:02 PM CLN CECUM REACHED 06/05/2024 5:15 PM CLN SCOPE OUT 06/05/2024 5:36 PM Specimens: Order Name Source Comment Collection Info Order Time HISTOLOGY - TISSUE EXAM Gastric Collected By: Mica Moraes MD 06/05/2024 4:58 PM Release to Patient Immediately Complications: None Estimated blood loss: Minimal Disposition: Return to inpatient horan Condition: stable Impression: Scattered sessile polyps in the ascending colon and hepatic flexure, not removed on today's examination Inverted diverticula vs. Polyp noted in the transverse colon, biopsied. Scattered semi-sessile polyp noted in the descending colon and sigmoid colon. Sigmoid diverticulosis Rectal mass measuring 2.5 cm, endoscopic appearance highly suspicious for malignancy. Biopsied. External hemorrhoids. Recommendations: Follow up pathology from transverse colon biopsies and rectal mass biopsies. Would recommend Colorectal Surgery consultation If okay with Cardiothoracic surgery and Cardiology, would recommend initiation of heparin drip tomorrow, 06/06. Okay for regular diet. Will consider Colonoscopy +/- lower EUS for local staging of suspicious rectal mass early next week. Attending Attestation: I was present and scrubbed for the entire procedure. Darwin Peraza MD ENDOSCOPY PROCEDURE ORDERABLES F inal Result * Occult blood x 1, stool (06/04/2024 2:04 PM EDT) Fecal Occult Bld Negative Negative, None Detected 06/05/2024 8:52 AM EDT [facility] ([facility]) Stool Rectal contents / Unknown Non-blood Collection / Unknown 06/04/2024 2:04 PM EDT 06/04/2024 2:28 PM EDT Darwin Peraza MD LAB BODY FLUIDS AND STOOLS ORDER SCOOTER Final Result [facility] ([facility]) [id number] [place] [id number] from Last 3 Months or Most Recently Relevant to Health Maintenance Insurance [facility]IC[facility] [place] Advance Directives * Full Code (Latest Code Status on File) Date Activated Date Inactivated Comments 06/04/2024 1:07 PM 06/11/2024 2:04 PM * Full Code Date Activated Date Inactivated Comments 06/04/2024 10:43 AM 06/04/2024 1:07 PM Care Teams Transplant Nurse Relationship Specialty Start Date End Date Jaron Chester MD [address] [place] [place] [address] PCP - General 11/06/22 Modesto Becerra MD [address] [place] [address] Consulting Physician Electrophysiology 03/26/23 Sp Chacon MD [address] [place] [address] Surgeon Neurosurgery 03/26/23
--- OUTSIDE RECORDS SUMMARY | 2025-07-30 12:57 | XMS_ITS | Encounter Summary ---
Author Organization [facility] Address [address] [place] [id number] Care Team Providers Care Hatch Tender Name Role Phone Jaron Chester MD Primary Care Provider +-[phone] Kina Conklin MD Unavailable [phone] Abril Gardner RN Unavailable [phone] Fred Gonzalez MD Unavailable +-[phone] Jennifer GonzalezC Unavailable [phone] Source Comments In the event this information is protected by the Federal Confidentiality of Alcohol and Drug AbusePatient Records regulations: The Federal rules restrict any use of the information to criminally investigate or prosecute any alcohol or drug abuse patient.[facility] Encounter Details Date Type Department Care Team (Late st Contact Info) Description 09/29/2024 [place] [address] Provider, [facility] MRI Screening Questionnaire Completion Required Social History Tobacco Use Types Packs/Day Years Used Date Smoking Tobacco: Former Cigarettes 1 55.3 S tarted: 07/30/1966 Smokeless Tobacco: Never Alcohol Use Standard Drinks/Week Comments Not Currently 0 (1 standard drink = 0.6 oz pur e alcohol) [facility] Utilities Answer Date Recorded In the past 12 months has th e electric, gas, oil, or water company threatened to shut off services in your home? No 06/12/2024 Hunger Vital Sign Answer Date Recorded Within the past 12 months, y ou worried that your food would run out before you got the money to buy more. Never true 06/12/20 24 Within the past 12 months, t he food you bought just didn't last and you didn't have money to get more. Never true 06/12/2024 PRAPARE - Transportation Answer Date Re corded In the past 12 months, has l ack of transportation kept you from medical appointments or from getting medications? No 12/2023 In the past 12 months, has l ack of transportation kept you from meetings, work, or from getting things needed for daily living? No 06/12/2024 Housing Stability Vital Sign Answer Dylan e Recorded In the last 12 months, was t here a time when you were not able to pay the mortgage or rent on time? No 06/12/2024 In the last 12 months, how many places have you lived? 1 06/12/2024 In the last 12 months, was t here a time when you did not have a steady place to sleep or slept in a prison (including now)? No 06/12/2024 Area Deprivation Index Answer Date Carlos rded National Score (1-100), lower number is lower ri sk 78 08/17/2024 State Score (1-10), lower number is lower risk 6 08/17/2024 Data from: https://www.neighborhoodatlas.medicine.[facility].edu/. Last address used for calculation [address] [place] [address] 08/17/2024 Sex and Gender Information Value Date Recorded Sex Assigned at Not on file Legal Sex Male 10:12 AM EST Gender Identity Not on file Sexual Orientation Not on file documented as of this encounter Functional Status * Are you deaf or do you have serious difficulty hearing? Answer Date of Assessment Author No 06/26/2024 1:36 PM Shannan Boothe, RN * Are you blind or do you have serious difficulty seeing, even when wearing glasses? Answer Date of Assessment Author No 06/26/2024 1:36 PM EDT Shannan Lee RN * Do you have serious difficulty walking or climbing stairs? Answer Date of Assessment Author Yes 06/26/2024 1:36 PM EDT Shannan Lee RN * Do you have difficulty dressing or bathing? Answer Date of Assessment Author Yes 06/26/2024 1:36 PM EDT Shannan Lee RN * Because of a physical, mental, or emotional condition, do you have difficulty doing errands alone such as visiting a doctor's office or shopping? Answer Date of Assessment Author Yes 06/26/2024 1:36 PM EDT Shannan Lee RN documented as of this encounter Mental Status * Because of a physical, mental, or emotional condition, do you have serious difficulty concentrating, remembering, or making decisions? Answer Entry Date Author No 06/26/2024 1:36 PM EDT Shannan Lee RN documented in this encounter Plan of Treatment Not on file documented as of this encounter Goals Goal Patient Goal Type Associated Problems Recent Progress Patient-Stated? Author Blood Pressure < 130/80 Blood Pressure 150/83(2023 2:22 PM EST) No Tamiko Mcduffie, FUNERAL HOME GENERAL MANAGER.HAND TENNIS BALL COVERER documented as of this encounter Visit Diagnoses Not on filedocumented in this encounter Care Teams Hatch Tender Relationship Specialty Start Date End Date Jaron Chester MD PCP - General Family Medicine 12/19/11 Kina Conklin MD [address] [place] [phone] Colon and Rectal Surgery 06/19/24 Abril Gardner RN [address] [place] [address] Specialty District Agent Hematology/Oncology 08/28/24 Fred Gonzalez MD [address] [place] [address] Physician Hematology/Oncology 08/28/24 Jennifer Gonzalez PA-C [address] [place] [address] [address] [place] [address] Physician Unix Architect Hematology/Oncology 08/28/24 documented as of this encounter
--- OUTSIDE RECORDS SUMMARY | 2025-07-30 12:57 | XMS_ITS | Clinical Summary ---
Author Organization [facility] Address [address] [place] [address] Care Team Providers Care Nitroglycerin Distributor Name Role Phone Unavailable Primary Care Provider Unavailabl e Social History Tobacco Use Types Packs/Day Years Used Date Smoking Tobacco: Never Assessed Sex and Gender Information Value Date Recorded Sex Assigned at Not on file Legal Sex Male 7:25 PM EDT Gender Identity Not on file Sexual Orientation Not on file Last Filed Vital Signs Vital Sign Reading Time Taken Comments Blood Pressure 113/71 05/08/2018 12:00 PM EDT Pulse - - Temperature - - Respiratory Rate - - Oxygen Saturation - - Inhaled Oxygen Concentration - - Weight 97.5 kg (215 lb) 05/08/2018 12:00 PM EDT Height 172.7 cm (5' 8 ) 05/08/2018 12:00 PM EDT Body Mass Index 32.69 05/08/2018 12:00 PM EDT Plan of Treatment Not on file Insurance [employer] [place]
--- OUTSIDE RECORDS SUMMARY | 2025-07-30 12:57 | XMS_ITS | Encounter Summary ---
Author Organization [facility] Address [address] [place] [address] Care Team Providers Care Upper Stitcher Name Role Phone Jaron Chester MD Primary Care Provider [phone] Modesto Becerra MD Unavailable Sp Chacon MD Unavailable [phone] Encounter Details Date Type Department Care Team (Late st Contact Info) Description 05/27/2025 Orders Only [facility] [address] [place] [address] Modesto Becerra MD [address] [place] [address] Social History Tobacco Use Types Packs/Day Years Used Date Smoking Tobacco: Former Cigarettes Alcohol Use Standard Drinks/Week Comments Not Currently 0 (1 standard drink = 0.6 oz pur e alcohol) [facility] Utilities Answer Date Recorded In the past [...] place to sleep or slept in a skilled nursing (including now)? No 06/04/2024 Hunger Vital Sign [...] Ancillary Procedure [facility] [place] [address] [place] [address] documented as of this encounter Procedures Procedure Name Priority Date/Time Associated Diagnosis Comments CARDIAC DEVICE CHECK - REMOTE - PACEMAKER Routine 05/27/2025 12:00 AM EDT documented in this encounter Results * Cardiac device check - Remote pacemaker (05/27/2025 12:00 AM EDT) Anatomical Region Laterality Modality Other 05/27/2025 Modesto Becerra MD CV IMPLANTABLE CARDIAC DEVICE [place] OCEDURES Final Result documented in this encounter Visit Diagnoses Not on filedocumented in this encounter Care Teams Upper Stitcher Relationship Specialty Start Date End Date Jaron Chester MD [address] [facility] [address] [address] PCP - General 11/06/22 Modesto Becerra MD [address] [place] [address] Consulting Physician Electrophysiology 03/26/23 Sp Chacon MD [address] [place] [address] Surgeon Neurosurgery 03/26/23 documented as of this encounter
--- OUTSIDE RECORDS SUMMARY | 2025-07-30 12:57 | XMS_ITS | Encounter Summary ---
Author Organization [facility] Address [address] [place] [address] Care Team Providers Care Mold Preparer Name Role Phone Jaron Chester MD Primary Care Provider [phone] Modesto Becerra MD Unavailable Sp Chacon MD Unavailable [phone] Encounter Details Date Type Department Care Team (Late st Contact Info) Description 07/28/2025 Orders Only [facility] [address] [place] [address] Modesto Becerra MD [address] [place] [address] Social History Tobacco Use Types Packs/Day Years Used Date Smoking Tobacco: Former Cigarettes Alcohol Use Standard Drinks/Week Comments Not Currently 0 (1 standard drink = 0.6 oz pur e alcohol) [facility] Utilities Answer Date Recorded In [...] place to sleep or slept in a snf (including now)? No 06/04/2024 Hunger Vital Sign [...] Description 08/03/2025 10:45 AM EDT Ancillary Procedure [facility] [place] [address] [place] [address] documented as of this encounter Procedures Procedure Name Priority Date/Time Associated Diagnosis Comments CARDIAC DEVICE CHECK - REMOTE - PACEMAKER Routine 07/28/2025 12:00 AM EDT documented in this encounter Results * Cardiac device check - Remote pacemaker (07/28/2025 12:00 AM EDT) Anatomical Region Laterality Modality Other 07/28/2025 Modesto Becerra MD CV IMPLANTABLE CARDIAC DEVICE [place] OCEDURES Final Result documented in this encounter Visit Diagnoses Not on filedocumented in this encounter Care Teams Mold Preparer Relationship Specialty Start Date End Date Jaron Chester MD [address] [facility] [address] [address] PCP - General 11/06/22 Modesto Becerra MD [address] [place] [address] Consulting Physician Electrophysiology 03/26/23 Sp Chacon MD [address] [place] [address] Surgeon Neurosurgery 03/26/23 documented as of this encounter
--- OUTSIDE RECORDS SUMMARY | 2025-07-30 12:57 | XMS_ITS | Encounter Summary ---
Author Organization [facility] Address [address] [place] [address] Care Team Providers Care Surgical First Assistant Name Role Phone Unavailable Primary Care Provider Unavailabl e Encounter Details Date Type Department Care Team (Late st Contact Info) Description 07/20/2024 Abstract [facility] [address] [place] [id number] Unallocated, [facility] Provider, [address] [place] [address] Social History Tobacco Use Types Packs/Day Years Used Date Smoking Tobacco: Never Assessed Sex and Gender Information Value Date Recorded Sex Assigned at Not on file Legal Sex Male 7:25 PM EDT Gender Identity Not on file Sexual Orientation Not on file documented as of this encounter Plan of Treatment Not on file documented as of this encounter Visit Diagnoses Not on filedocumented in this encounter
--- OUTSIDE RECORDS SUMMARY | 2025-07-30 12:57 | XMS_ITS ---
Author Organization [facility] Address [address] [place] [address] Care Team Providers Care Cone Picker Name Role Phone Jaron Chester MD Primary Care Provider [phone] Modesto Becerra MD Unavailable Sp Chacon MD Unavailable [phone] Active Problems Problem Noted Date Diagnosed Date [...] mass demonstrating adenocarcinoma. He was transferred to [facility] for further evaluation. He was initially [...] Heparin infusion. He was transferred to the [facility] service on 06/15. He was started on aspirin. Airway Difficulty: Grade I - George Pacing Wires: X4 Ventricular wires (pull) Surgeries and Major Events: 06/18/2024: CABGx3 (WREN-LAD, SVG-OM1, SVG-PDA), MAZE, RUSS Clip (35), Right atrial Pacer lead A/P of Major Active Problems: Transferred to [facility] on 06/21/24 Neuro: Post op pain: S/p pecs block 06/20/2024. States pain is controled. Continue PRN Tylenol/Oxycodone/Ultram. Cardiac: Sick sinus syndrome s/p pacemaker: intra-op issues with intrinsic PPM, right atrial lead placed and connected. Device check 06/19: AP, MAJOR GENERAL. Continue DDD pacing @ 100bpm. No RA [...] and reviewed post op findings w/ [facility] director special education. Hematology: Coagulopathy: s/p OR. Required 2 platelet. Resolved, plts normalized. Acute blood loss anemia: s/p OR. Transfused 1 unit of PRBC's on 06/23. Current H&H 9.0/28.7 Endo: Stress Hyperglycemia: No DM history. Perioperative insulin resistance and exacerbation of hyperglycemia. SSI for glycemic control. DC'd accu checks Discharge: 74 yr old male who lives in [place], [place] (near [place] PT recs SNF. CM following, bed and transport were arranged, ok to transfer today per CTS. Prefers to follow up locally d/t distance (PCP 1 week after discharge from SNF, Console Assembler in 4 weeks). Will f/u at for [...] at this time for pacing induced cardiomyopathy Current Treatment and Therapy Plans No current plan information found. Past Treatment and Therapy Plans No past plan information found. Lifetime Dose Tracking * Chemical Lifetime Dose Automatic Entry Manual Entr y Fluoro Time 5.1 minutes 0 minutes 5.1 minutes Air Kerma 760 mGy 0 mGy 760 mGy
--- OUTSIDE RECORDS SUMMARY | 2025-07-30 12:58 | XMS_ITS | Encounter Summary ---
Author Organization [facility] Address [address] [place] [address] Care Team Providers Care Growth Hacker Name Role Phone Jaron Chester MD Primary Care Provider +-4 Kina Conklin MD Unavailable +-3 Abril Gardner RN Unavailable [phone] Fred Gonzalez MD Unavailable +-6 Jennifer GonzalezC Unavailable [phone] Source Comments In the event this information is protected by the Federal Confidentiality of Alcohol and Drug AbusePatient Records regulations: The Federal rules restrict any use of the information to criminally investigate or prosecute any alcohol or drug abuse patient.[facility] Reason for Visit * Auth/Cert (Routine) Specialty Diagnoses / Procedures Referred By Contac t Referred To Contact Diagnoses Rectal Mass Procedures N/A [facility] [address] [place] [address] Referral ID Status Reason Start Date Expiration Date Visits Re quested Visits Authorized [id number] 1 1 Encounter Details Date Type Department Care Team (Late st Contact Info) Description 06/17/2024 Lab Requisition [facility] [address] [place] [address] Phil Avina MD [address] [place] [address] Person encountering health services to consult on behalf of another person Social History Tobacco Use Types Packs/Day Years Used Date Smoking Tobacco: Never Assessed [facility] Utilities Answer Date Recorded In the [...] place to sleep or slept in a group home (including now)? No 06/12/2024 Sex and Gender Information Value Date Recorded Sex Assigned at Not on file Legal Sex Male 10:12 AM EST Gender Identity Not on file Sexual Orientation Not on file documented as of this encounter Plan of Treatment Not on file documented as of this encounter Procedures Procedure Name Priority Date/Time Associated Diagnosis Comments OUTSIDE SURG PATH SLIDE REVIEW Routine 06/17/2024 2:47 PM EDT Person encountering health services to consult on behalf of another person documented in this encounter Results * OUTSIDE SURG PATH SLIDE REVIEW (06/17/2024 2:47 PM EDT) Case Report Surgical Pathology Report Case: [id number] Authorizing Provider: Phil Avina MD Collected: 06/17/2024 02:47 PM Ordering Location: [facility] Received: 06/17/2024 02:47 PM [facility] Pathologist: Charlette Cordero MD Specimen: Slide(s), 9 SLIDES [id number] 06/23/2024 1:44 PM EDT [facility] FINAL DIAGNOSIS [facility], [place], [place]; [id number] (06/05/2024) 1. Stomach, biopsy (A): - Gastric oxyntic and antral mucosa with mild reactive epithelial changes and focal mild chronic inflammation. - No definitive morphologic evidence of Helicobacter pylori organisms. 2. Colon, transverse, polyp, biopsy (B): - Hyperplastic polyp. 3. Rectum, mass, biopsy (C): - Invasive moderately differentiated adenocarcinoma. 06/23/2024 1:44 PM EDT [facility] at 1147 EDT Performing Lab Diagnostic interpretation performed at [facility], [address] [place] [address]# [id number] Pocket Cutter: Jeffrey Tolentino M.D. 06/23/2024 1:44 PM EDT [facility] Addendum Part C of this case has been reviewed by Dr. Garrett, a member of the [facility], who agrees with this assessment. 06/23/2024 1:44 PM EDT [facility] Addendum electronically signed by Charlette Cordero MD on 06/23/2024 at 1344 EDT Blocks or Slides MICROSCOPE SLIDE / Unknown 06/17/2024 2:47 PM EDT 06/17/2024 2:47 PM EDT us Phil Avina MD SURGICAL PATHOLOGY Edited Re sult - Final [facility] [address] [facility] [address] [place] [address], documented in this encounter Visit Diagnoses Diagnosis Person encountering health services to consult on behalf of another person Other person consulting on behalf of another person documented in this encounter Care Teams Growth Hacker Relationship Specialty Start Date End Date Jaron Chester MD PCP - General Family Medicine 12/19/11 Kina Conklin MD [address] [phone] Colon and Rectal Surgery 06/19/24 Abril Gardner, RN [address] [employer] [facility] [place] [address] Specialty Framing And Hanging Hematology/Oncology 08/28/24 Fred Gonzalez MD [address] [place] [address] Physician Hematology/Oncology 08/28/24 Jennifer Gonzalez, PA-C [address] [place] [address] Physician Manager Technical Support Hematology/Oncology 08/28/24 documented as of this encounter
--- OUTSIDE RECORDS SUMMARY | 2025-07-30 12:58 | XMS_ITS | Encounter Summary ---
Author Organization [facility] Address [address] [place] [address] Care Team Providers Care Belt Polisher Name Role Phone Jaron Chester MD Primary Care Provider +-4 Kina Conklin MD Unavailable +-3 Abril Gardner RN Unavailable [phone] Fred Gonzalez MD Unavailable +-6 Jennifer Gonzalez-C Unavailable [phone] Source Comments In the event this information is protected by the Federal Confidentiality of Alcohol and Drug AbusePatient Records regulations: The Federal rules restrict any use of the information to criminally investigate or prosecute any alcohol or drug abuse patient.[facility] Encounter Details Date Type Department Care Team (Late st Contact Info) Description 07/16/2024 Patient Msg Urology [address] [id number] Casper Vasques MD [address] [place] [address] Scheduled Appointment Social History Tobacco Use Types Packs/Day Years Used Date Smoking Tobacco: Never Assessed [facility] Utilities Answer Date Recorded In the past [...] place to sleep or slept in a assisted (including now)? No 06/12/2024 Sex and Gender Information Value Date Recorded Sex Assigned at Not on file Legal Sex Male 10:12 AM EST Gender Identity Not on file Sexual Orientation Not on file documented as of this encounter Functional Status * Are you deaf or do you have serious difficulty hearing? Answer Date of Assessment Author No 06/26/2024 1:36 PM Shannan Boothe RN * Are you blind or do you have serious difficulty seeing, even when wearing glasses? Answer Date of Assessment Author No 06/26/2024 1:36 PM Shannan Boothe RN * Do you have serious difficulty walking or climbing stairs? Answer Date of Assessment Author Yes 06/26/2024 1:36 PM Shannan Boothe RN * Do you have difficulty dressing [...] Entry Date Author No 06/26/2024 1:36 PM EDShannan Patrick RN documented in this encounter Plan of Treatment Not on file documented as of this encounter Goals Goal Patient Goal Type Associated Problems Recent Progress Patient-Stated? Author Blood Pressure < 130/80 Blood Pressure 150/83(2023 2:22 PM EST) No Tamiko Mcduffie, MANAGER EVENT.PROMPT CARE RN documented as of this encounter Visit Diagnoses Not on filedocumented in this encounter Care Teams Belt Polisher Relationship Specialty Start Date End Date Jaron Chester MD PCP - General Family Medicine 12/19/11 Kina Conklin MD [address] [address] Colon and Rectal Surgery 06/19/24 Abril Gardner RN [address] [facility] [place] [address] Specialty Restaurant Cashier Hematology/Oncology 08/28/24 Fred Gonzalez MD [address] [facility] [place] [address] Physician Hematology/Oncology 08/28/24 Jennifer Gonzalez PA-C [address] [facility] [place] [address] Physician Sap Director Hematology/Oncology 08/28/24 documented as of this encounter
--- OUTSIDE RECORDS SUMMARY | 2025-07-30 12:58 | XMS_ITS | Encounter Summary ---
Author Organization [facility] Address [address] [place] [address] Care Team Providers Care Line Worker Name Role Phone Jaron Chester MD Primary Care Provider +-4 Kina Conklin MD Unavailable [phone] Abril Gardner RN Unavailable [phone] Fred Gonzalez MD Unavailable +-6 Jennifer Gonzalez PA-C Unavailable [phone] Source Comments In the event this information is protected by the Federal Confidentiality of Alcohol and Drug AbusePatient Records regulations: The Federal rules restrict any use of the information to criminally investigate or prosecute any alcohol or drug abuse patient.[facility] Encounter Details Date Type Department Care Team (Late st Contact Info) Description 06/16/2024 [place] [address] Provider, [facility] Actionable Imaging Result Notification Patient Outreach Social History Tobacco Use Types Packs/Day Years Used Date Smoking Tobacco: Never Assessed [facility] Utilities Answer Date Recorded In the past 12 months has [employer], gas, oil, or water Rentlord threatened to shut off services in your [...] place to sleep or slept in a residential (including now)? No 06/12/2024 Sex and Gender Information Value Date Recorded Sex Assigned at Not on file Legal Sex Male 10:12 AM EST Gender Identity Not on file Sexual Orientation Not on file documented as of this encounter Plan of Treatment Not on file documented as of this encounter Visit Diagnoses Not on filedocumented in this encounter Care Teams Line Worker Relationship Specialty Start Date End Date Jaron Chester MD PCP - General Family Medicine 12/19/11 Kina Conklin MD [address] [place] [address] Colon and Rectal Surgery 06/19/24 Abril Gardner, RN [address] [facility] [place] [address] Specialty Marble Machine Operator Hematology/Oncology 08/28/24 Fred Gonzalez MD [address] [facility] [place] [address] Physician Hematology/Oncology 08/28/24 Jennifer Gonzalez PA-C [address] [facility] [place] [address] Physician Projection Printer Hematology/Oncology 08/28/24 documented as of this encounter
--- OUTSIDE RECORDS SUMMARY | 2025-07-30 12:58 | XMS_ITS | Encounter Summary ---
Author Organization [facility] Address [address] [place] [address] Care Team Providers Care Metal Storage Worker Name Role Phone Jaron Chester MD Primary Care Provider +-4 Kina Conklin MD Unavailable +-3 Abril Gardner RN Unavailable [phone] Fred Gonzalez MD Unavailable +-6 Jennifer Gonzalez PA-C Unavailable [phone] Source Comments In the event this information is protected by the Federal Confidentiality of Alcohol and Drug AbusePatient Records regulations: The Federal rules restrict any use of the information to criminally investigate or prosecute any alcohol or drug abuse patient.[facility] Encounter Details Date Type Department Care Team (Late st Contact Info) Description 09/07/2024 Telephone Hematology/Oncology [facility] [place] [address] Fred Gonzalez MD [address] [place] [address] [place] [address] Social History Tobacco Use Types Packs/Day Years Used Date Smoking Tobacco: Former Cigarettes 1 55.3 S tarted: 07/30/1966 Smokeless Tobacco: Never Alcohol Use Standard Drinks/Week Comments Not Currently 0 (1 standard drink = 0.6 oz pur e alcohol) [facility] Utilities Answer Date Recorded In the [...] place to sleep or slept in a usp (including now)? No 06/12/2024 Area Deprivation Index Answer Date Carlos rded National Score (1-100), lower number is lower ri sk 78 08/17/2024 State Score (1-10), lower number is lower risk 6 08/17/2024 Data from: https://www.neighborhoodatlas.medicine.[facility].edu/. Last address used for calculation [address] [place] [address] RD 08/17/2024 Sex and Gender Information Value Date Recorded Sex Assigned at Not on file Legal Sex Male 10:12 AM EST Gender Identity Not on file Sexual Orientation Not on file documented as of this encounter Functional Status * Are you deaf or do you have serious difficulty hearing? Answer Date of Assessment Author No 06/26/2024 1:36 PM EDT Shannan Lee RN * Are you blind or do [...] Shannan Lee RN documented in this encounter Miscellaneous Notes * Telephone Encounter - Casper Vasques MD - 09/07/2024 2:29 PM EDT Thanks for letting me know Vivienne, can you schedule this patient for a VV/ telephone visit with me in early November. I'll just want to check in with him at that time to see if he is interested in any further follow-up treatmentor monitoring for his bladder cancer. Casper * Telephone Encounter - Fred Gonzalez MD - 09/07/2024 2:16 PM EDT [place]. I saw him today. He is refusing to start intravesical BCG treatments scheduled on Sep 28. FYI. Thanks. documented in this encounter Plan of Treatment Not on file documented as of this encounter Goals Goal Patient Goal Type Associated Problems Recent Progress Patient-Stated? Author Blood Pressure < 130/80 Blood Pressure 150/83(2023 2:22 PM EST) Tamiko Kim, FENCE MACHINE OPERATOR.PUBLIC HEALTH WORKER documented as of this encounter Visit Diagnoses Not on filedocumented in this encounter Care Teams Metal Storage Worker Relationship Specialty Start Date End Date Jaron Chester MD PCP - General Family Medicine 12/19/11 Kina Conklin MD [address] [phone] Colon and Rectal Surgery 06/19/24 Abril Gardner, RN [address] [facility] [place] [address] Specialty Underwear Cutter Hematology/Oncology 08/28/24 Fred Gonzalez MD [address] [place] [address] [place] [address] Physician Hematology/Oncology 08/28/24 Jennifer Gonzalez, PA-C [address] [facility] [place] [address] Physician Hairpiece Stylist Hematology/Oncology 08/28/24 documented as of this encounter
--- OUTSIDE RECORDS SUMMARY | 2025-07-30 12:58 | XMS_ITS | Clinical Summary ---
Author Organization [facility] Address [address] [place] [id number] Care Team Providers Care Commercial Baking Teacher Name Role Phone Jaron Chester MD Primary Care Provider [phone] Kina Conklin MD Unavailable [phone] Abril Gardner RN Unavailable [phone] Fred Gonzalez MD Unavailable [phone] Jennifer Gonzalez-C Unavailable [phone] Allergies Active Allergy Reactions Criticality Noted Date Comments Azithromycin Other: See Comments, GI Upset 08/16/2022 Pt states he started having bloody stools after taking azithromycin Medications metoprolol tartrate, short acting, (LOPRESSOR) 25 mg tablet Take 1 tablet by mouth every 12 hours. 4 Active heparin 5,000 unit/mL injection Inject 1 mL subcutaneously every 12 hours. For DVT prophylaxis until ambulatory 4 Active iv contrast (will be provided with radiology test)Indicatio ns:Rectal cancer (HCC) MRI Rectum Inject, intravenously, once [...] MR contrast administration guidelines link. 1 Each 4 Active Additional Information Patient not taking.Reason: Course of Therapy Completed, Reported on 08/17/2024 enteric contrast (will be provided with radiology test)Indicatio ns:Rectal cancer (HCC) MRI RECTUM WO/W. Administer, As Directed One Time Only, via Oral, Rectal, both Oral and Rectal, Enteric Tube, Stoma or Indwelling Catheter, Enteric Contrast as designated per enteric contrast guidelines 1 Each 4 Active Additional Information Patient not taking.Reported on 08/17/2024 capecitabine (XELODA) 500 mg tabletIndicati ons:Rectal cancer (HCC) Take 3 tablets (1,500 mg) by mouth two times a day Saturday through Saturday ONLY on the days of radiation (Take with 150 mg tablet for Total Dosage 1650 mg) 180 tablet 09/07/2024 3:31 PM EDT 4 Active capecitabine (XELODA) 150 mg tabletIndicati ons:Rectal cancer (HCC) Take 1 tablet (150 mg) by mouth two times a day Saturday through Saturday ONLY on the days of radiation (Take with 500 mg tablet for Total Dosage 1650 mg) 60 tablet 09/07/2024 3:31 PM EDT 4 Active prochlorperazi ne (COMPAZINE) 10 mg tablet Take 1 tablet by mouth every 6 hours as needed. 100 tablet 2 09/07/2024 3:31 PM EDT 4 Active ondansetron (ZOFRAN) 8 mg tablet Take 1 tablet by mouth every 8 hours as needed for nausea/vomiting. 90 tablet 2 09/07/2024 3:31 PM EDT 4 Active atorvastatin calcium (ATORVASTATIN ORAL) Take 10 mg by mouth once daily. Active Active Problems Patient Care Coordination No te Formatting of this note migh t be different from the original. Indication for Surgery: CAD Admit 06/11/24 Preop [...] mass demonstrating adenocarcinoma. He was transferred to [facility] for further evaluation. He was initially [...] Heparin infusion. He was transferred to the STAMPING OPERATOR/PA service on 06/15. He was started on aspirin. Airway Difficulty: Grade I - George Pacing Wires: X4 Ventricular wires (pull) Surgeries and Major Events: 06/18/2024: CABGx3 (WREN-LAD, SVG-OM1, SVG-PDA), MAZE, RUSS Clip (35), Right atrial Pacer lead A/P of Major Active Problems: Transferred to [facility] on 06/21/24 Neuro: Post op pain: S/p pecs block 06/20/2024. States pain is controled. Continue PRN Tylenol/Oxycodone/Ultram. Cardiac: Sick sinus syndrome s/p pacemaker: intra-op issues with intrinsic PPM, right atrial lead placed and connected. Device check 06/19: AP, LEGUILLON DEBEADER. Continue DDD pacing @ 100bpm. No RA [...] and reviewed post op findings w/ [facility] pupil personnel services director. Hematology: Coagulopathy: s/p OR. Required 2 platelet. Resolved, plts normalized. Acute blood loss anemia: s/p OR. Transfused 1 unit of PRBC's on 06/23. Current H&H 9.0/28.7 Endo: Stress Hyperglycemia: No DM history. Perioperative insulin resistance and exacerbation of hyperglycemia. SSI for glycemic control. DC'd accu checks Discharge: 74 yr old male who lives in [place], [place] (near [place]). PT recs SNF. CM following, bed and transport were arranged, ok to transfer today per CTS. Prefers to follow up locally d/t distance (PCP 1 week after discharge from SNF, [facility] in 4 weeks). Will f/u at for [facility]--appt requested w/ Dr. Avina within a month Discharge Planning: Anticipated Discharge Date: 06/26 Barriers to Discharge: No Barriers to Discharge Care Management Discharge Needs: Needs Prior to Discharge: To Be Determined Problem Noted Date Diagnosed Date Malignant neoplasm of overlapping sites of bladd er 08/31/2024 History of prostate cancer 08/17/2024 Anemia 08/17/2024 Obesity (BMI 30-39.9) 08/17/2024 Obesity, Class II, BMI 35-39.9 06/26/2024 TEJ (obstructive sleep apnea) 06/23/2024 Encounter for support and co ordination of transition of care 06/22/2024 Overview (06/26/2024): Indication for Surgery: CAD Admit 06/11/24 Preop LVEF: 55% RVF: Normal Cards: Srinivas EKG: A paced, underlying SB 50s per [...] mass demonstrating adenocarcinoma. He was transferred to [facility] for further evaluation. He was initially [...] Heparin infusion. He was transferred to the STAMPING OPERATOR/PA service on 06/15. He was started on aspirin. Airway Difficulty: Grade I - George Pacing Wires: X4 Ventricular wires (pull) Surgeries and Major Events: 06/18/2024: CABGx3 (WREN-LAD, SVG-OM1, SVG-PDA), MAZE, RUSS Clip (35), Right atrial Pacer lead A/P of Major Active Problems: Transferred to [facility] on 06/21/24 Neuro: Post op pain: S/p pecs block 06/20/2024. States pain is controled. Continue PRN Tylenol/Oxycodone/Ultram. Cardiac: Sick sinus syndrome s/p pacemaker: intra-op issues with intrinsic PPM, right atrial lead placed and connected. Device check 06/19: AP, LEGUILLON DEBEADER. Continue DDD pacing @ 100bpm. No RA [...] and reviewed post op findings w/ [facility] pupil personnel services director. Hematology: Coagulopathy: s/p OR. Required 2 platelet. Resolved, plts normalized. Acute blood loss anemia: s/p OR. Transfused 1 unit of PRBC's on 06/23. Current H&H 9.0/28.7 Endo: Stress Hyperglycemia: No DM history. Perioperative insulin resistance and exacerbation of hyperglycemia. SSI for glycemic control. DC'd accu checks Discharge: 74 yr old male who lives in [place], [place] (near [place]). PT recs SNF. CM following, bed and transport were arranged, ok to transfer today per CTS. Prefers to follow up locally d/t distance (PCP 1 week after discharge from SNF, [facility] [facility] in 4 weeks). Will f/u at for [facility]--appt requested w/ Dr. Avina within a month Discharge Planning: Anticipated Discharge Date: 06/26 Barriers to Discharge: No Barriers to Discharge Care Management Discharge Needs: Needs Prior to Discharge: To Be Determined Hypervolemia 06/22/2024 Atelectasis 06/19/2024 Overview (06/21/2024): CKD (chronic kidney disease) stage 3, GFR 30-59 ml/min 06/19/2024 Overview (06/21/2024): RVF (right ventricular failure) 06/19/2024 Postoperative pain 06/18/2024 Overview (06/21/2024): Stress hyperglycemia 06/18/2024 Overview (06/21/2024): Obesity, Class I, BMI 30-34.9 06/18/2024 Overview (06/21/2024): ABLA (acute blood loss anemia) 06/18/2024 Overview (06/21/2024): Pacemaker 06/15/2024 Overview (06/21/2024): Coronary artery disease 06/12/2024 Overview (06/21/2024): Positive stress test OSH that led to LHC-CAD with MV CAD Assessment & Plan (06/12/2024 2:13 PM EDT): Cardiology consulted/following, appreciate recs. Consult placed to CTS for possible revascularization and timing. Continue beta nani, statin and heparin infusion for now. Atrial fibrillation, chronic 06/12/2024 Overview (06/21/2024): Assessment & Plan (06/12/2024 2:13 PM EDT): Continue metoprolol and heparin infusion Chronic anticoagulation 06/12/2024 Assessment & Plan (06/12/2024 2:13 PM EDT): Continue heparin infusion per nomogram. Hypertension 06/12/2024 Overview (06/21/2024): Assessment & Plan (06/12/2024 2:18 PM EDT): Continue home regimen of metoprolol BID Hyperlipidemia 06/12/2024 Overview (06/21/2024): Assessment & Plan (06/12/2024 2:18 PM EDT): Continue daily statin. Rectal cancer 06/11/2024 Overview (06/21/2024): Pt reports rectal bleed after starting apixiban, underwent colonoscopy 06/05 that showed multiple polyps throughout the colon and a 2.5cm polyp in the rectum suspicious for malignancy, biopsy results confirming invasive adenocarcinoma Assessment & Plan (06/12/2024 2:12 PM EDT): OSH colonoscopy 06/05 revealed 2.5cm rectal polyp [...] in relation to treatment for rectal cancer. Resolved Problems Problem Noted Date Diagnosed Date Resolved Date On mechanically assisted ventilation 06/18/2024 06/19/2024 Coagulopathy 06/18/2024 06/21/2024 Cardiac insufficiency 06/18/20242023 Other hypotension 06/18/2024 06/21/2024 Lactic acidosis 06/18/2024 06/21/2024 Immunizations Immunization Administration Dates Next Due influenza (HD-IIV3) vaccine, age 65+ yr, high dose, trivalent, PF (FLUZONE HIGH-DOSE) 09/12/2022,07/29/2017 influenza (HD-IIV4) vaccine, age 65+ yr, high dose, quadrivalent, PF (FLUZONE HIGH-DOSE) 11/14/2023,08/31/2021 influenza (IIV4) vaccine, ag e 6 mo - 64 yr, quadrivalent, PF (AFLURIA, FLUARIX, FLULAVAL, FLUZONE) 11/18/2017 influenza (aIIV3) vaccine, a ge 65+ yr, trivalent, PF (FLUAD) 08/10/2020 pneumococcal conjugate (PCV1 3) vaccine, 13 valent (PREVNAR 13) 07/29/2017 pneumococcal polysaccharide (PPV23) vaccine, 23 valent (PNEUMOVAX 23) 11/19/2016 Family History Medical History Relation Comments Breast Cancer Mother Lung Cancer Sister 1 Pancreatic Cancer Sister 2 Cancer Sister 3 poss Pancreatic cancer Thyroid Cancer Sister 4 Relation Status Comments Mother Sister 1 Sister 2 Sister 3 Alive Sister 4 Alive Social History Tobacco Use Types Packs/Day Years Used Date Smoking Tobacco: Former Cigarettes 1 55.3 S tarted: 07/30/1966 Smokeless Tobacco: Never Tobacco Cessation:Counseling Given: Not Answered Alcohol Use Standard Drinks/Week Comments Not Currently 0 (1 standard drink = 0.6 oz pur e alcohol) [facility] Utilities Answer Date Recorded In the past 12 months has th e [employer], gas, oil, or water [employer] threatened to shut off services in your [...] slept in a chcf (including now)? No 06/12/2024 Area Deprivation Index Answer Date Carlos rded National Score (1-100), lower number is lower ri sk 78 08/17/2024 State Score (1-10), lower number is lower risk 6 08/17/2024 Data from: https://www.neighborhoodatlas.[facility].edu/. Last address used for calculation [address] 08/17/2024 Sex and Gender Information Value Date Recorded Sex Assigned at Not on file Legal Sex Male 10:12 AM EST Gender Identity Not on file Sexual Orientation Not on file Last Filed Vital Signs Vital Sign Reading Time Taken Comments Blood Pressure 150/83 09/21/2024 2:22 PM EST Pulse 88 09/21/2024 2:22 PM EST Temperature 36.6 C (97.8 F) 09/21/2024 2:22 PM EST Respiratory Rate 18 09/21/2024 2:22 PM EST Oxygen Saturation 94% 09/21/2024 2:22 PM EST Inhaled Oxygen Concentration - - Weight 98.3 kg (216 lb 11.4 oz) 09/21/2024 2:22 PM EST Height 167.6 cm (5' 5.98 ) 09/07/2024 1:45 PM ED T Body Mass Index 35 09/07/2024 1:45 PM EDT Plan of Treatment Health Maintenance Due Date Last Done Comments Annual PCP Team Chronic Dise ase Visit 1966 Anxiety Screening 1966 Depression Screening 1966 Hepatitis C Screening 1966 DTaP,Tdap,Td Vaccine (1 - Tdap) 1967 Shingrix Vaccine (1 of 2) 1998 Medicare Annual Wellness Visit 04/11/2013 RSV Vaccine (1 - 1-dose 75+ series) 2023 Advance Directive Discussion 11/11/2024 LDL Cholesterol 06/16/2025 06/16/2024 Influenza Vaccine (#1) 2025 , 09/12/2022, 08/31/2021, Additional history exists Hemoglobin/Hematocrit 09/07/2025 09/07/2024 , 08/17/2024, 07/30/2024, Additional history exists Serum Creatinine 09/07/2025 09/07/2024, 05/2024, 07/30/2024, Additional history exists Diabetes Screening 09/07/2027 09/07/2024, 1 , 07/30/2024, Additional history exists Pneumococcal Vaccine: 50+ Completed 07/29/2017, 07/2017 Goals Goal Patient Goal Type Associated Problems Recent Progress Patient-Stated? Author Blood Pressure < 130/80 Blood Pressure 150/83(2023 2:22 PM EST) No Tamiko Mcduffie APRN.PHYSICAL THERAPIST CENTER MANAGER Medical Devices Implanted Type Area Terrazzo Mechanic Device Identifier Shelf Expiration Date Model / Serial / Lot Clip Atriclip Gillinov-Gudelia 180d Long 35mm 25mm Internal Head - [id number] Implanted:Qty: 1 on 06/18/2024 at [facility] Clip N/A: Heart ATRICURE 01/09/2027 [id number] / / [id number] Hemoblast Ibis And 1 Ea Short 10 Cm Cannula - [id number] Implanted:Qty: 1 on 06/18/2024 at [facility] Collagen DILON [employer] [id number] / / Envelope Aigisrx R Medium Defibrillator Absorbable Antibacterial - [id number] Implanted:Qty: 1 on 06/18/2024 at [facility] Defibrillator Left: Chest MEDTRONIC CARDIORHYTHM 04/04/2025 [id number] / / [id number] [place] Thk1.65mm Ptfe 4x.5in Cardiovascular Sterile - [id number] Implanted:Qty: 1 on 06/18/2024 at [facility] Implant N/A: Heart BARD PERIPHERAL VASCULAR 09/07/2028 [id number] / / [id number] Other Solia S 45 [id number] Implanted: 022 (Quantity not on file) Lead OTHER SOLIA S 45 / [id number] / [id number] / Description:1.5T ONLY Other Solia S 53 [id number] Implanted: 022 (Quantity not on file) Lead OTHER SOLIA S 53 / [id number] / [id number] / Lead Capsure Epi 8fr Steroid Eluting Silicone 35cm Pacing Is-1 Bipolar - [id number] Implanted:Qty: 1 on 06/18/2024 at [facility] Lead N/A: Heart [employer]IC CARDIORHYTHM 04/01/2026 [id number] / [id number] / [id number] [place] 8 Fran [id number] Implanted: 022 (Quantity not on file) Pacemaker [employer] EDORA 8 FRAN / [id number] / Procedures Procedure Name Priority Date/Time Associated Diagnosis Comments CBC + DIFF Routine 09/07/2024 1:39 PM EDT Rectal cancer (HCC) COMPREHENSIVE METABOLIC PANEL Routine 09/07/2024 1:39 PM EDT Rectal cancer (HCC) LIPID PANEL, FASTING Routine 06/16/2024 5:50 AM EDT from Last 3 Months or Most Recently Relevant to Health Maintenance Results * (ABNORMAL) COMPREHENSIVE METABOLIC PANEL (09/07/2024 1:39 PM EDT) Pathologist [facility] Protein, Total 6.4 6.3 - 8.0 g/dL 09/07/2024 2:11 PM EDT [facility] Albumin 4.0 3.9 - 4.9 g/dL 09/07/2024 2:11 PM EDT [facility] Calcium, Total 9.1 8.5 - 10.2 mg/dL 09/07/2024 2:11 PM EDT [facility] Bilirubin, Total 0.5 0.2 - 1.3 mg/dL 09/07/2024 2:11 PM EDT [facility] Alkaline Phosphatase 49 38 - 113 U/L 09/07/2024 2:11 PM EDT [facility] AST 11(L) 14 - 40 U/L 09/07/2024 2:11 PM EDT [facility] ALT 8(L) 10 - 54 U/L 09/07/2024 2:11 PM EDT [facility] Glucose 96 74 - 99 mg/dL 09/07/2024 2:11 PM [facility] Comment: The [place] Diabetes Association (ADA) provides guidance for cutoff [...] Standards of Medical Care in Diabetes 2016, [place] Diabetes Association. Diabetes Care. 2016.39(Suppl 1). BUN 23 9 - 24 mg/dL 09/07/2024 2:11 PM [facility] Creatinine 1.35(H) 0.73 - 1.22 mg/dL 09/07/2024 2:11 PM [facility] Sodium 138 136 - 144 mmol/L 09/07/2024 2:11 PM [facility] Potassium 5.0 3.7 - 5.1 mmol/L 09/07/2024 2:11 PM [facility] Chloride 102 98 - 107 mmol/L 09/07/2024 2:11 PM [facility] CO2 26 22 - 30 mmol/L 09/07/2024 2:11 PM [facility] Anion Gap 10 8 - 15 mmol/L 09/07/2024 2:11 PM [facility] Estimated Glomerular Filtration Rate 54(L) >=60 mL/min/1. 73m 09/07/2024 2:11 PM [facility] Comment:Estimated Glomerular Filtration Rate (eGFR) is calculated using the 2020 CKD-EPI creatinine equation. This equation utilizes serum creatinine, sex, and age as parameters. The creatinine assay has traceable calibration to isotope dilution- mass spectrometry. Refer to KDIGO guidelines for clinical interpretation. In patients with unstable renal function, e.g. those with acute kidney injury, the eGFR may not accurately reflect actual GFR. Blood BLOOD SPECIMEN / Unknown Venipuncture / Unknown 09/07/2024 1:39 PM EDT 09/07/2024 1:39 PM EDT us Fred Gonzalez MD LABORATORY Final Res ult [facility] [address] [place] [address] * COMPLETE BLOOD COUNT AND DIFFERENTIAL (09/07/2024 1:39 PM EDT) WBC 7.87 3.70 - 11.00 k/uL 09/07/2024 1:44 PM EDT [facility] RBC 4.91 4.20 - 6.00 m/uL 09/07/2024 1:44 PM EDT [facility] Hemoglobin 13.4 13.0 - 17.0 g/dL 09/07/2024 1:44 PM EDT [facility] Hematocrit 43.6 39.0 - 51.0 % 09/07/2024 1:44 PM EDT [facility] MCV 88.8 80.0 - 100.0 fL 09/07/2024 1:44 PM EDT [facility] MCH 27.3 26.0 - 34.0 pg 09/07/2024 1:44 PM EDT [facility] MCHC 30.7 30.5 - 36.0 g/dL 09/07/2024 1:44 PM EDT [facility] RDW-CV 14.7 11.5 - 15.0 % 09/07/2024 1:44 PM EDT [facility] Platelet Count 209 150 - 400 k/uL 09/07/2024 1:44 PM EDT [facility] MPV 9.1 9.0 - 12.7 fL 09/07/2024 1:44 PM EDT [facility] Neutrophils % 70.8 % 09/07/2024 1:44 PM EDT [facility] Abs Neut 5.58 1.45 - 7.50 k/uL 09/07/2024 1:44 PM EDT [facility] Lymphocytes % 17.8 % 09/07/2024 1:44 PM EDT [facility] Abs Lymph 1.40 1.00 - 4.00 k/uL 09/07/2024 1:44 PM EDT [facility] Monocytes % 8.5 % 09/07/2024 1:44 PM EDT [facility] Abs Graham 0.67 <0.87 k/uL 09/07/2024 1:44 PM EDT [facility] Eosinophils % 1.8 % 09/07/2024 1:44 PM EDT [facility] Abs Eosin 0.14 <0.46 k/uL 09/07/2024 1:44 PM EDT [facility] Basophils % 0.3 % 09/07/2024 1:44 PM EDT [facility] Abs Baso <0.03 <0.11 k/uL 09/07/2024 1:44 PM EDT [facility] Immature Granulocytes % 0.8 % 09/07/2024 1:44 PM EDT [facility] Abs Immature Gran 0.06 <0.10 k/uL 024 1:44 PM EDT [facility] NRBC 0.0 /100 WBC 09/07/2024 1:44 PM EDT [facility] Absolute nRBC <0.01 <0.01 k/uL 09/07/2024 1:44 PM EDT [facility] Diff Type Auto 09/07/2024 1:44 PM EDT [facility] Blood BLOOD SPECIMEN / Unknown Venipuncture / Unknown 09/07/2024 1:39 PM EDT 09/07/2024 1:39 PM EDT us Fred Vennepureddy MD LABORATORY Final Res ult [facility] [address] [place] [address] * (ABNORMAL) LIPID PANEL BASIC (06/16/2024 5:50 AM EDT) Cholesterol, Total 96 <200 mg/dL 06/16/2024 7:07 AM [facility] Comment: <200 mg/dL, Desirable 200-239 mg/dL, Borderline high >239 mg/dL, High Triglyceride 85 <150 mg/dL 06/16/2024 7:07 AM T [facility] Comment: <150 mg/dL, Normal 150-199 mg/dL, Borderline high 200-499 mg/dL, High >499 mg/dL, Very high HDL Cholesterol 39(L) >39 mg/dL 7:07 AM [facility] Comment: 40-59 mg/dL, Acceptable >59 mg/dL, High: Negative risk factor for coronary heart disease <40 mg/dL, Low: Positive risk factor for coronary heart disease Non HDL Cholesterol 57 <130 mg/dL 06/16/2024 7:07 AM [facility] Comment: <130 mg/dL, Optimal 130-159 mg/dL, Near optimal/above optimal 160-189 mg/dL, Borderline high 190-219 mg/dL, High >219 mg/dL, Very high Secondary prevention optimal non HDL Cholesterol levels are recommended to be <100 mg/dL Fasting Time Unknown hrs 06/16/2024 7:07 AM [facility] VLDL Cholesterol 17 <30 mg/dL 06/16/20 24 7:07 AM [facility] TC:HDL Ratio 2.46 <5.10 06/16/2024 7:07 AM [facility] LDL Cholesterol, Calculated 40 <100 mg/dL 06/16/2024 7:07 AM [facility] Comment: <100 mg/dL, Optimal 100-129 mg/dL, Near optimal/above optimal 130-159 mg/dL, Borderline high 160-189 mg/dL, High >189 mg/dL, Very high Secondary prevention optimal LDL Cholesterol levels are recommended to be < 70 mg/dL LDL:HDL Ratio 1.03 <2.54 06/16/2024 7:07 AM EDT [facility] Comment: Reference: 1. National Cholesterol Education Program ATP III Guideline At-A-Glance Quick Desk Reference: National Heart, Lung, and Blood [place]. National Institutes of Health. 2001: NIH Publication No. 01-3305. 2. An International Atherosclerosis Society position paper: global recommendations for the management of dyslipidemia: executive summary, Atherosclerosis. 2014: 232(2):410-413. Blood BLOOD SPECIMEN / Unknown Venipuncture / Unknown 06/16/2024 5:50 AM EDT 06/16/2024 6:13 AM EDT us Krista Meyer APRN.[facility] Final Result [facility] [address] [place] [address], from Last 3 Months or Most Recently Relevant to Health Maintenance Insurance MEDICARE [facility] MEDICARE SUPPLEMENT Member Subscriber Plan / Payer (Ef fective 2021-Present) Name:Brian Oneal Relation to Subscriber:Self Name:Brian Oneal Payer ID:Not on file Type:Indemnity Address: [address] [place] [phone] Advance Directives Documents on File Type Date Recorded Patient Engine Repair Supervisor Expl anation Advance Directive(s) 06/18/2024 7:47 AM Care Teams Commercial Baking Teacher Relationship Specialty Start Date End Date Jaron Chester MD PCP - General Family Medicine 12/19/11 Kina Conklin MD [address] [address] Colon and Rectal Surgery 06/19/24 Abril Gardner, RN [address] [place] [address] Specialty Barrel Loader And Cleaner Hematology/Oncology 08/28/24 Fred Gonzalez MD [address] [place] [address] Physician Hematology/Oncology 08/28/24 Jennifer Gonzalez, PAOsmarC [address] [place] [address] Physician Detonator Maker Hematology/Oncology 08/28/24
--- OUTSIDE RECORDS SUMMARY | 2025-07-30 12:58 | XMS_ITS ---
Author Organization [facility] Address [address] [place] [id number] Care Team Providers Care Route Driver Name Role Phone aJron Chester MD Primary Care Provider +-4 Kina Conklin MD Unavailable [phone] Abril Gardner RN Unavailable [phone] Fred Gonzalez MD Unavailable [phone] Jennifer Gonzalez PA-C Unavailable [phone] Active Problems Patient Care Coordination No te [...] mass demonstrating adenocarcinoma. He was transferred to [facility] for further evaluation. He was initially admitted [...] Heparin infusion. He was transferred to the BOW REPAIRER CUSTOM/PA service on 06/15. He was started on aspirin. Airway Difficulty: Grade I - George Pacing Wires: X4 Ventricular wires (pull) Surgeries and Major Events: 06/18/2024: CABGx3 (WREN-LAD, SVG-OM1, SVG-PDA), MAZE, RUSS Clip (35), Right atrial Pacer lead A/P of Major Active Problems: Transferred to [facility] on 06/21/24 Neuro: Post op pain: S/p pecs block 06/20/2024. States pain is controled. Continue PRN Tylenol/Oxycodone/Ultram. Cardiac: Sick sinus syndrome s/p pacemaker: intra-op issues with intrinsic PPM, right atrial lead placed and connected. Device check 06/19: AP, TRANSPORTATION ASSISTANT. Continue DDD pacing @ 100bpm. No [...] and reviewed post op findings w/ C[employer] compensation adjuster. Hematology: Coagulopathy: s/p OR. Required 2 platelet. Resolved, plts normalized. Acute blood loss anemia: s/p OR. Transfused 1 unit of PRBC's on 06/23. Current H&H 9.0/28.7 Endo: Stress Hyperglycemia: No DM history. Perioperative insulin resistance and exacerbation of hyperglycemia. SSI for glycemic control. DC'd accu checks Discharge: 74 yr old male who lives in [place], [place] (near [place]). PT recs SNF. CM following, bed and transport were arranged, ok to transfer today per CTS. Prefers to follow up locally d/t distance (PCP 1 week after discharge from SNF, Legislative Assistant in 4 weeks). Will f/u at for [...] mass demonstrating adenocarcinoma. He was transferred to [facility] for further evaluation. He was initially admitted [...] Heparin infusion. He was transferred to the BOW REPAIRER CUSTOM/PA service on 06/15. He was started on aspirin. Airway Difficulty: Grade I - George Pacing Wires: X4 Ventricular wires (pull) Surgeries and Major Events: 06/18/2024: CABGx3 (WREN-LAD, SVG-OM1, SVG-PDA), MAZE, RUSS Clip (35), Right atrial Pacer lead A/P of Major Active Problems: Transferred to [facility] on 06/21/24 Neuro: Post op pain: S/p pecs block 06/20/2024. States pain is controled. Continue PRN Tylenol/Oxycodone/Ultram. Cardiac: Sick sinus syndrome s/p pacemaker: intra-op issues with intrinsic PPM, right atrial lead placed and connected. Device check 06/19: AP, TRANSPORTATION ASSISTANT. Continue DDD pacing @ 100bpm. No [...] and reviewed post op findings w/ C[employer] compensation adjuster. Hematology: Coagulopathy: s/p OR. Required 2 platelet. Resolved, plts normalized. Acute blood loss anemia: s/p OR. Transfused 1 unit of PRBC's on 06/23. Current H&H 9.0/28.7 Endo: Stress Hyperglycemia: No DM history. Perioperative insulin resistance and exacerbation of hyperglycemia. SSI for glycemic control. DC'd accu checks Discharge: 74 yr old male who lives in [place], [place] (near [place]). PT recs SNF. CM following, bed and transport were arranged, ok to transfer today per CTS. Prefers to follow up locally d/t distance (PCP 1 week after discharge from SNF, Legislative Assistant in 4 weeks). Will f/u at for [...] in relation to treatment for rectal cancer. Current Treatment and Therapy Plans No current plan information found. Past Treatment and Therapy Plans ADULT THERAPY PLAN 1 Plan Name Start Date Discontinue Date Treatment Medications Discontinue Reason Plan Provider BLADDER INSTILLATION 09/28/2024 12/22/2024 bcg vaccine for bladder irrigation Other Casper Vasques MD Resolved Problems Problem Noted Date Diagnosed Date Resolved Date On mechanically assisted ventilation 06/18/2024 06/19/2024 Coagulopathy 06/18/2024 06/21/2024 Cardiac insufficiency 06/18/20242023 Other hypotension 06/18/2024 06/21/2024 Lactic acidosis 06/18/2024 06/21/2024
--- OUTSIDE RECORDS SUMMARY | 2025-07-30 12:58 | XMS_ITS | Encounter Summary ---
Author Organization [facility] Address [address] [place] [id number] Care Team Providers Care Antenna Rigger Name Role Phone Jaron Chester MD Primary Care Provider +-4 Kina Conklin MD Unavailable [phone] Abril Gardner RN Unavailable [phone] Fred Gonzalez MD Unavailable +-[phone] Jennifer GonzalezC Unavailable [phone] Source Comments In the event this information is protected by the Federal Confidentiality of Alcohol and Drug AbusePatient Records regulations: The Federal rules restrict any use of the information to criminally investigate or prosecute any alcohol or drug abuse patient.[facility] Encounter Details Date Type Department Care Team (Late st Contact Info) Description 08/13/2024 Patient Msg Urology [address] [address] [place] [address] Provider, [facility] urology pre op-surgery dates and instructions Social History Tobacco Use Types Packs/Day Years Used Date Smoking Tobacco: Former Cigarettes 1 59 S tarted: 07/30/1966 Smokeless Tobacco: Never Alcohol Use Standard Drinks/Week Comments Not Currently 0 (1 standard drink = 0.6 oz pur e alcohol) [facility] Utilities Answer Date Recorded In the [...] a group home (including now)? No 06/12/2024 Area Deprivation Index Answer Date Carlos rded National Score (1-100), lower number is lower ri sk 78 08/17/2024 State Score (1-10), lower number is lower risk 6 08/17/2024 Data from: https://www.neighborhoodatlas.medicine.[facility].edu/. Last address used for calculation [address] 08/17/2024 Sex and Gender Information Value Date Recorded Sex Assigned at Not on file Legal Sex Male 10:12 AM EST Gender Identity Not on file Sexual Orientation Not on file documented as of this encounter Functional Status * Are you deaf or do you have serious difficulty hearing? Answer Date of Assessment Author No 06/26/2024 1:36 PM Shannan Boothe, CATRACHITO * Are you blind or do you [...] 150/83(2023 2:22 PM EST) No Tamiko Mcduffie, ROADWAY TECHNICIAN.CAD ADMINISTRATOR documented as of this encounter Visit Diagnoses Not on filedocumented in this encounter Care Teams Antenna Rigger Relationship Specialty Start Date End Date Jaron Chester MD PCP - General Family Medicine 12/19/11 Kina Conklin MD [address] [place] [address] [phone] Colon and Rectal Surgery 06/19/24 Abril Gardner RN [address] [place] [address] Specialty Machinist Supervisor Hematology/Oncology 08/28/24 Fred Gonzalez MD [address] [place] [address] Physician Hematology/Oncology 08/28/24 Jennifer Gonzalez PA-C [address] [place] [address] [address] [address] Physician Cephalometric Analyst Hematology/Oncology 08/28/24 documented as of this encounter
--- OUTSIDE RECORDS SUMMARY | 2025-07-30 13:18 | XMS_ITS | CCD ---
Author Organization [facility] CliniSyhi Care Team Providers Care Circular Saw Edge Fuser Name Role Phone MODESTO SINGH Admitting Unavailable MODESTO SINGH Attending Unavailable SELF, REFERRED Referring Unavailable ELLIOT DECKER Primary Care Unavailable MODESTO SINGH Consulting Unavailable HOY ., DR ZARATE Primary Care Unavailable MODESTO SINGH Attending Unavailable MODESTO SINGH Admitting Unavailable MASON, ALONSO Consulting Unavailable GAGANDEEP PAREDES Consulting Unavailable HOY [...] Primary Care Provider Kina Ernst MD Unavailable [phone] ELLIOTT SANCHEZ Referring Unavailable HOY, ELLIOT M Primary Care Unavailable HOY, ELLIOT M Primary Care Unavailable Jj WINSTON, Abril Moy Unavailable [phone] Lisa MARCUS, Fred Unavailable [phone] Jennifer Gonzalez PA-C Unavailable [phone] ELENO JIMENEZ Referring Unavailable HOY, ELLIOT M [...] MODESTO Referring Unavailable FRANCISCO, MODESTO Referring Unavailable MAJOR HARRISON Attending Unavailable FRANCISCOMODESTO Bacon Referring Unavailable Allergies Allergy Classification Reported Allergen(s) Allergy Type Date of Onset Reaction(s) Facility (4 sources) Azithromycin; Translations: [AZITHROMYCIN] Drug Allergy 2 [facility] (2 sources) Azithromycin Drug Allergy 5 [facility] Repository (1 source) Ciprofloxacin Drug Allergy 3 [facility] Repository (20 sources) Azithromycin Drug Allergy 2 Other: See Comments, GI Upset [facility] Medications Current Medications Medication Drug Class(es) Dates [...] Active docusate sodium 50 mg / sennosides, penitentiary 8.6 mg oral tablet (3 sources) Start: [...] 30 tablet 08/20/2024 09/03/2024 polyethylene glycol 3350 71195 mg powder for oral solution (20 sources) [...] Coronary arteriosclerosis; Translations: [Atherosclerotic heart disease of [place] coronary artery without angina pectoris] Onset: 06-12-2024 [...] 07-01-2024 Episodic Other aftercare (1 source) Other intermediate (current) drug therapy; Translations: [OTH INSTRUCTOR BUSINESS EDUCATION CURRENT DRUG THERAPY] Onset: 03-19-2022 Episodic Other aftercare (20 sources) Long-term current use of anticoagulant; Translations: [terminologist (current) use of anticoagulants] Onset: 06-12-2024 06-12-2024 [...] Range Facility Orders Onlyon 06-27-2025 Orders Only [id number] Wayne Oneal s A 1950 M Date Provider Department Center 06/27/2025 325-STEPHANIE FLOWERS HVC CARD [facility] Family History Problem Relation Age of Onset Coronary artery disease Mother Family Status - Relation Status Age at Mother Father Sister Brother [facility] Orders Onlyon 04-10-2025 Orders Only [id number] Wayne Oneal s A 1950 M Date Provider Department Center 04/10/2025 325-STEPHANIE FLOWERS [facility]VC CARD [facility] Family History Problem Relation Age of Onset Coronary artery disease Mother Family Status - Relation Status Age at Mother Father Sister Brother [facility] Office Visiton 03-11-2025 Follow-up visit [id number] Wayne Oneal s A 1950 M Date Provider Department Center 03/11/2025 DARRELL ELIZABETH [facility]ARD [facility] Family History Problem Relation Age of Onset Coronary artery disease Mother Family Status - Relation Status Age at Mother Father Sister Brother Level of Service:94105 [place] OFFICE/OUTPATIENT ESTABLISHED MOD MDM 30 MIN Reason for Visit and Comments: Coronary Artery Disease [187] Atrial Fibrillation [80] [facility] CNP[facility] 12-29-2024 CNPN Normal [facility] Office Visiton 11-20-2024 Follow-up visit [id number] Wayne Oneal 1950 M Date Provider Department Center 11/20/2024 3848-MAJOR HARRISON CARD [facility] Family History Problem Relation Age of Onset Coronary artery disease Mother Family Status - Relation Status Age at Mother Level of Service:52641 AR OFFICE/OUTPATIENT ESTABLISHED LOW MDM 20 MIN [facility] CNPNon 10-01-2024 CNPN Normal [facility] CNPNon 09-22-2024 CNPN Normal [facility] CNOVSPon 09-21-2024 CNOVSP Normal [facility] CNPNon 09-18-2024 CNPN Normal [facility] GLUCOSE, BLOOD (POC)on 09-08 Glucose [Mass/Vol] 104 mg/dL Abnormal 74 - 99 mg/dL [facility] Comment on above: Location:[facility], [address] [place] [address] , [place], [place], [facility] The Accu-Chek Inform II glucose meter has [...] Interpretation and review of laboratory results Abnormal [facility] NM PET/CT SKULL-THIGH INITon 09-08-2024 NM PET/CT SKULL-THIGH INIT Normal [facility] CBC W Auto Differential pane l (Bld)on 09-07-2024 Basophils (Bld) [#/Vol] 10*3/uL Normal <0.11 [facility] Comment on above: Order Comment: Speci men Type: BLOOD SPECIMENOrdering Facility: [facility] Address: [address] [place] [address] Performed By: #### 5 7021-8 ####[facility] LABCLIA [id number] [place] [address] Basophils/100 WBC (Bld) 0.3 % Normal [facility] Comment on above: Order Comment: Speci men Type: BLOOD SPECIMENOrdering Facility: [facility] Address: [address] [place] [address] Performed By: #### 5 7021-8 ####[facility] LABCLIA [id number] [place] [address] Differential cell count method Nom (Bld) Auto Normal [facility] Comment on above: Order Comment: Speci men Type: BLOOD SPECIMENOrdering Facility: [facility] Address: [address] [place] [address] Performed By: #### 5 7021-8 ####[facility] LABCLIA [id number] [place] [address] Eosinophils (Bld) [#/Vol] 0.14 10*3/uL Normal <0.46 [facility] Comment on above: Order Comment: Speci men Type: BLOOD SPECIMENOrdering Facility: [facility] Address: [address] [place] [address] Performed By: #### 5 7021-8 ####[facility] LABCLIA [id number] [place] [address] Eosinophils/100 WBC (Bld) 1.8 % Normal [facility] Comment on above: Order Comment: Speci men Type: BLOOD SPECIMENOrdering Facility: [facility] Address: [address] [place] [address] Performed By: #### 5 7021-8 ####[facility] LABCLIA [id number] [place] [address] Erythrocyte distribution width (RBC) [Ratio] 14.7 % Normal 11.5-15.0 [facility] Comment on above: Order Comment: Speci men Type: BLOOD SPECIMENOrdering Facility: [facility] Address: [address] [place] [address] Performed By: #### 5 7021-8 ####[facility] LABCLIA [id number] [place] [address] Hematocrit (Bld) [Volume fraction] 43.6 % Normal 39.0-51.0 [facility] Comment on above: Order Comment: Speci men Type: BLOOD SPECIMENOrdering Facility: [facility] Address: [address] [place] [address] Performed By: #### 5 7021-8 ####[facility] LABCLIA [id number] [place] [address] Hemoglobin (Bld) [Mass/Vol] 13.4 g/dL Normal 13.0-17.0 [facility] Comment on above: Order Comment: Speci men Type: BLOOD SPECIMENOrdering Facility: [facility] Address: [address] [place] [address] Performed By: #### 5 7021-8 ####[facility] LABCLIA [id number] [place] [address] Immature granulocytes (Bld) [#/Vol] 0.06 10*3/uL Normal <0.10 [facility] Comment on above: Order Comment: Speci men Type: BLOOD SPECIMENOrdering Facility: [facility] Address: [address] [place] [address] Performed By: #### 5 7021-8 ####[facility] LABCLIA [id number] [place] [address] Immature granulocytes/100 WBC (Bld) 0.8 % Normal [facility] Comment on above: Order Comment: Speci men Type: BLOOD SPECIMENOrdering Facility: [facility] Address: [address] [place] [address] Performed By: #### 5 7021-8 ####[facility] LABCLIA [id number] [place] [address] Lymphocytes (Bld) [#/Vol] 1.40 10*3/uL Normal 1.00-4.00 [facility] Comment on above: Order Comment: Speci men Type: BLOOD SPECIMENOrdering Facility: [facility] Address: [address] [place] [address] Performed By: #### 5 7021-8 ####[facility] LABCLIA [id number] [place] [address] Lymphocytes/100 WBC (Bld) 17.8 % Normal [facility] Comment on above: Order Comment: Speci men Type: BLOOD SPECIMENOrdering Facility: [facility] Address: [address] [place] [address] Performed By: #### 5 7021-8 ####[facility] LABIA [id number] [place] [address] MCH (RBC) [Entitic mass] 27.3 pg Normal 26.0-34.0 [facility] Comment on above: Order Comment: Speci men Type: BLOOD SPECIMENOrdering Facility: [facility] Address: [address] [place] [address] Performed By: #### 5 7021-8 ####[facility] LABCLIA [id number] [place] [address] MCHC (RBC) [Mass/Vol] 30.7 g/dL Normal 30.5-36.0 [facility] Comment on above: Order Comment: Speci men Type: BLOOD SPECIMENOrdering Facility: [facility] Address: [address] [place] [address] Performed By: #### 5 7021-8 ####[facility] LABIA [id number] [place] [address] MCV (RBC) [Entitic vol] 88.8 fL Normal 80.0-100.0 [facility] Comment on above: Order Comment: Speci men Type: BLOOD SPECIMENOrdering Facility: [facility] Address: [address] [place] [address] Performed By: #### 5 7021-8 ####[facility] LABCLIA [id number] [place] [address] Monocytes (Bld) [#/Vol] 0.67 10*3/uL Normal <0.87 [facility] Comment on above: Order Comment: Speci men Type: BLOOD SPECIMENOrdering Facility: [facility] Address: [address] [place] [address] Performed By: #### 5 7021-8 ####[facility] LABCLIA [id number] [place] [address] Monocytes/100 WBC (Bld) 8.5 % Normal [facility] Comment on above: Order Comment: Speci men Type: BLOOD SPECIMENOrdering Facility: [facility] Address: [address] [place] [address] Performed By: #### 5 7021-8 ####[facility] LABCLIA [id number] [place] [address] Neutrophils (Bld) [#/Vol] 5.58 10*3/uL Normal 1.45-7.50 [facility] Comment on above: Order Comment: Speci men Type: BLOOD SPECIMENOrdering Facility: [facility] Address: [address] [place] [address] Performed By: #### 5 7021-8 ####[facility] LABCLIA [id number] [place] [address] Neutrophils/100 WBC (Bld) 70.8 % Normal [facility] Comment on above: Order Comment: Speci men Type: BLOOD SPECIMENOrdering Facility: [facility] Address: [address] [place] [address] Performed By: #### 5 7021-8 ####[facility] LABCLIA [id number] [place] [address] Nucleated RBC (Bld) [#/Vol] 10*3/uL Normal <0.01 [facility] Comment on above: Order Comment: Speci men Type: BLOOD SPECIMENOrdering Facility: [facility] Address: [address] [place] [address] Performed By: #### 5 7021-8 ####[facility] LABCLIA [id number] [place] [address] Nucleated RBC/100 WBC (Bld) [Ratio] 0.0 /100 WBC Normal [facility] Comment on above: Order Comment: Speci men Type: BLOOD SPECIMENOrdering Facility: [facility] Address: [address] [place] [address] Performed By: #### 5 7021-8 ####[facility] LABCLIA [id number] [place] [address] Platelet mean volume (Bld) [Entitic vol] 9.1 fL Normal 9.0-12.7 [facility] Comment on above: Order Comment: Speci men Type: BLOOD SPECIMENOrdering Facility: [facility] Address: [address] [place] [address] Performed By: #### 5 7021-8 ####[facility] LABIA [id number] [place] [address] Platelets (Bld) [#/Vol] 209 10*3/uL Normal 150-400 [facility] Comment on above: Order Comment: Speci men Type: BLOOD SPECIMENOrdering Facility: [facility] Address: [address] [place] [address] Performed By: #### 5 7021-8 ####[facility] LABIA [id number] [place] [address] RBC (Bld) [#/Vol] 4.91 10*6/uL Normal 4.20-6.00 [facility] Comment on above: Order Comment: Speci men Type: BLOOD SPECIMENOrdering Facility: [facility] Address: [address] [place] [address] Performed By: #### 5 7021-8 ####[facility] LABCLIA [id number] [place] [address] WBC (Bld) [#/Vol] 7.87 10*3/uL Normal 3.70-11.00 [facility] Comment on above: Order Comment: Speci men Type: BLOOD SPECIMENOrdering Facility: [facility] Address: [address] [place] [address] Performed By: #### 5 7021-8 ####[facility] LABCLIA [id number] [place] [address] CNNURSEon 09-07-2024 CNNURSE Normal [facility] CNOVSPon 09-07-2024 CNOVSP Normal [facility] CNPNon 09-07-2024 CNPN Normal [facility] Comprehensive metabolic 2000 panelon 09-07-2024 Albumin [Mass/Vol] 4.0 g/dL Normal 3.9-4.9 [facility] Comment on above: Order Comment: Speci men Type: BLOOD SPECIMENOrdering Facility: [facility] Address: [address] [place] [address] Performed By: #### 2 4323-8 ####[facility] LABCLIA [id number] [place] [address] ALP [Catalytic activity/Vol] 49 U/L Normal 38-113 [facility] Comment on above: Order Comment: Speci men Type: BLOOD SPECIMENOrdering Facility: [facility] Address: [address] [place] [address] Performed By: #### 2 4323-8 ####[facility] LABCLIA [id number] [place] [address] ALT [Catalytic activity/Vol] 8 U/L Low 10-54 [facility] Comment on above: Order Comment: Speci men Type: BLOOD SPECIMENOrdering Facility: [facility] Address: [address] [place] [address] Performed By: #### 2 4323-8 ####[facility] LABCLIA [id number] [place] [address] Anion gap [Moles/Vol] 10 mmol/L Normal 8-15 [facility] Comment on above: Order Comment: Speci men Type: BLOOD SPECIMENOrdering Facility: [facility] Address: [address] [place] [address] Performed By: #### 2 4323-8 ####[facility] LABCLIA [id number] [place] [address] AST [Catalytic activity/Vol] 11 U/L Low 14-40 [facility] Comment on above: Order Comment: Speci men Type: BLOOD SPECIMENOrdering Facility: [facility] Address: [address] [place] [address] Performed By: #### 2 4323-8 ####[facility] LABCLIA [id number] [place] [address] Bilirubin [Mass/Vol] 0.5 mg/dL Normal 0.2-1.3 [facility] Comment on above: Order Comment: Speci men Type: BLOOD SPECIMENOrdering Facility: [facility] Address: [address] [place] [address] Performed By: #### 2 4323-8 ####[facility] LABCLIA [id number] [place] [address] Calcium [Mass/Vol] 9.1 mg/dL Normal 8.5-10.2 [facility] Comment on above: Order Comment: Speci men Type: BLOOD SPECIMENOrdering Facility: [facility] Address: [address] [place] [address] Performed By: #### 2 4323-8 ####[facility] LABCLIA [id number] [place] [address] Chloride [Moles/Vol] 102 mmol/L Normal 98-107 [facility] Comment on above: Order Comment: Speci men Type: BLOOD SPECIMENOrdering Facility: [facility] Address: [address] [place] [address] Performed By: #### 2 4323-8 ####[facility] LABCLIA [id number] [place] [address] CO2 [Moles/Vol] 26 mmol/L Normal 22-30 [facility] Comment on above: Order Comment: Speci men Type: BLOOD SPECIMENOrdering Facility: [facility] Address: [address] [place] [address] Performed By: #### 2 4323-8 ####[facility] LABCLIA [id number] [place] [address] Creatinine [Mass/Vol] 1.35 mg/dL High 0.73-1.22 [facility] Comment on above: Order Comment: Speci men Type: BLOOD SPECIMENOrdering Facility: [facility] Address: [address] [place] [address] Performed By: #### 2 4323-8 ####[facility] LABCLIA [id number] [place] [address] Creatinine and Glomerular filtration rate.predicted panel (S/P/Bld) 54 mL/min/1.73m??? Low >=60 [facility] Comment on above: Order Comment: Speci men Type: BLOOD SPECIMENOrdering Facility: [facility] Address: [address] [place] [address] Result Comment: Annalisa mated Glomerular Filtration Rate [...] actual GFR. Performed By: #### 2 4323-8 ####[facility] LABCLIA [id number] [place] [address] Glucose [Mass/Vol] 96 mg/dL Normal 74-99 [facility] Comment on above: Order Comment: Speci men Type: BLOOD SPECIMENOrdering Facility: [facility] Address: [address] [place] [address] Result Comment: The [place] Diabetes Association (ADA) provides guidance for cutoff [...] Standards of Medical Care in Diabetes 2016, [place] [employer]. Diabetes Care. 2016.39(Suppl 1). Performed By: #### 2 4323-8 ####[facility] LABCLIA [id number] [place] [address] Potassium [Moles/Vol] 5.0 mmol/L Normal 3.7-5.1 [facility] Comment on above: Order Comment: Chandanai men Type: BLOOD SPECIMENOrdering Facility: [facility] Address: [address] [place] [address] Performed By: #### 2 4323-8 ####[facility] LABCLIA [id number] [place] [address] Protein [Mass/Vol] 6.4 g/dL Normal 6.3-8.0 [facility] Comment on above: Order Comment: Speci men Type: BLOOD SPECIMENOrdering Facility: [facility] Address: [address] [place] [address] Performed By: #### 2 4323-8 ####[facility] LABCLIA [id number] [place] [address] Sodium [Moles/Vol] 138 mmol/L Normal 136-144 [facility] Comment on above: Order Comment: Speci men Type: BLOOD SPECIMENOrdering Facility: [facility] Address: [address] [place] [address] Performed By: #### 2 4323-8 ####[facility] LABCLIA [id number] [place] [address] Urea nitrogen [Mass/Vol] 23 mg/dL Normal 9-24 [facility] Comment on above: Order Comment: Speci men Type: BLOOD SPECIMENOrdering Facility: [facility] Address: [address] [place] [address] Performed By: #### 2 4323-8 ####[facility] LABCLIA [id number] [place] [address] CNOVon 09-04-2024 CNOV Normal [facility] CNPNon 09-04-2024 CNPN Normal [facility] CNCNPATEDon 09-03-2024 CNCNPATED Normal [facility] CNPNon 08-31-2024 CNPN Normal [facility] CNPNon 08-28-2024 CNPN Normal [facility] CNOVSPon 08-27-2024 CNOVSP Normal [facility] CNPNon 08-27-2024 CNPN Normal [facility] CNPNon 08-26-2024 CNPN Normal [facility] CNPNon 08-25-2024 CNPN Normal [facility] ANES POSTPROC EVALon 024 ANES POSTPROC EVAL Normal [facility] ANES PRE-OPon 08-20-2024 ANES PRE-OP Normal [facility] OPERATIVE NOon 08-20-2024 OPERATIVE NO Normal [facility] SURGICAL PATHOLOGYon 024 CASE REPORT Normal [facility] Comment on above: Order Comment: Speci men Type: TISSUE SPECIMENOrdering Facility: [facility] Address: [address] [place] [address] Result Comment: Surg ica Pathology Report Case: [id number] Provider: Elliott Sanchez MD Collected: 08/20/2024 08:24 [...] posterior wall tumor Performed By: #### S ####[facility] [id number] [place] [address] [place] CLINICAL HISTORY Normal [facility] Comment on above: Order Comment: Speci men Type: TISSUE SPECIMENOrdering Facility: [facility] Address: [address] [place] [address] Result Comment: Pre- op diagnosis:Rectal cancer (HCC) [C20]Bladder mass [N32.89] Performed By: #### S ####[facility] [id number] [place] [address] [place] DIAGNOSIS COMMENT Normal [facility] Comment on above: Order Comment: Speci men Type: TISSUE SPECIMENOrdering Facility: [facility] Address: [address] [place] [address] Result Comment: Immu nohistochemical stains were performed [...] been determined by the performing laboratory within [facility]???[facility] and Laboratory Medicine Department ([facility], [facility], [facility], [facility], [facility], [facility], or [facility]) in a manner consistent with CLIA requirements. One or more of these tests have not been cleared or approved by the FDA. [facility] is regulated under CLIA as qualified to perform high-complexity testing. These tests are used for clinical purposes. They should not be regarded as investigational or for research. Positive and negative controls stain appropriately. Performed By: #### S ####[facility] LABCLIA [id number] [address] FINAL DIAGNOSIS Normal [facility] Comment on above: Order Comment: Speci men Type: TISSUE SPECIMENOrdering Facility: [facility] Address: [address] [place] [address] Result Comment: A. A scending colon, polypectomy:- [...] uninvolved by tumor. Performed By: #### S ####[facility] LABCLIA [id number] [address] OF [facility] FINAL PERFORMING LAB Normal [facility] Comment on above: Order Comment: Speci men Type: TISSUE SPECIMENOrdering Facility: [facility] Address: [address] [place] [address] Result Comment: Diag nostic interpretation performed at [facility], [facility] [place] [address] CLIA# [id number] Director: Jeffrey Tolentino M.D. Performed By: #### S ####[facility] [id number] [facility] [place] [address] [place] GROSS DESCRIPTION Normal [facility] Comment on above: Order Comment: Speci men Type: TISSUE SPECIMENOrdering Facility: [facility] Address: [address] [place] [address] Result Comment: A. C olon, Ascending PolypReceived [...] submitted in one cassette.Gross examination performed at [facility], [address] [place] [address] August 20, 2024 1:37 PM Performed By: #### S ####[facility] LABCLIA [id number] [place] [address] [place] CNOVon 08-18-2024 CNOV Normal [facility] CNPTOUTREACHon 08-18-2024 CNPTOUTREACH Normal [facility] POTASSIUMon 08-18-2024 Potassium [Moles/Vol] 5.2 mmol/L High 3.7-5.1 [facility] Comment on above: Order Comment: Speci men Type: BLOOD SPECIMENOrdering Facility: [facility] Address: [address] [place] [address] Performed By: #### K 1 ####[facility]CLIA [id number] [place] [address] [place] Bacteria Ur Culton Bacteria identified Cx Nom (U) ORGANISM ID: 1 <10,000 CFU/ml Normal urogenital bola Normal [facility] Comment on above: Performed By: #### 6 30-4 #### [facility] CLIA [id number] [address] [place] [address] [place] Basic metabolic 2000 panelon 08-17-2024 Anion gap [Moles/Vol] 12 mmol/L Normal 8-15 [facility] Comment on above: Order Comment: Speci men Type: BLOOD SPECIMEN Ordering Facility: [facility] Address: [address] [place] [address] Performed By: #### 2 4321-2 #### [facility] CLIA [id number] [address] [place] [address] [place] Calcium [Mass/Vol] 9.6 mg/dL Normal 8.5-10.2 [facility] Comment on above: Order Comment: Speci men Type: BLOOD SPECIMEN Ordering Facility: [facility] Address: [address] [place] [address] Performed By: #### 2 4321-2 #### [facility] CLIA [id number] [address] [place] [address] [place] Chloride [Moles/Vol] 102 mmol/L Normal 98-107 [facility] Comment on above: Order Comment: Speci men Type: BLOOD SPECIMEN Ordering Facility: [facility] Address: [address] [place] [address] Performed By: #### 2 4321-2 #### [facility] CLIA [id number] [address] [place] [address] [place] CO2 [Moles/Vol] 25 mmol/L Normal 22-30 [facility] Comment on above: Order Comment: Speci men Type: BLOOD SPECIMEN Ordering Facility: [facility] Address: [address] [place] [address] Performed By: #### 2 4321-2 #### [facility] CLIA [id number] [address] [place] [address] [place] Creatinine [Mass/Vol] 1.46 mg/dL High 0.73-1.22 [facility] Comment on above: Order Comment: Speci men Type: BLOOD SPECIMEN Ordering Facility: [facility] Address: [address] [place] [address] Performed By: #### 2 4321-2 #### [facility] CLIA [id number] [address] [place] [address] [place] Creatinine and Glomerular filtration rate.predicted panel (S/P/Bld) 50 mL/min/1.73m??? Low >=60 [facility] Comment on above: Order Comment: Bobby villalpando Type: BLOOD SPECIMEN Ordering Facility: [facility] Address: [address] [place] [address] Result Comment: Annalisa mated Glomerular Filtration Rate [...] GFR. Performed By: #### 2 4321-2 #### [facility] CLIA [id number] [facility] [address] [place] Glucose [Mass/Vol] 103 mg/dL High 74-99 [facility] Comment on above: Order Comment: Bobby villalpando Type: BLOOD SPECIMEN Ordering Facility: [facility] Address: [address] [place] [address] Result Comment: The [place] [employer] (ADA) provides guidance for cutoff [...] Standards of Medical Care in Diabetes 2016, [place] [employer]. Diabetes Care. 2016.39(Suppl 1). Performed By: #### 2 4321-2 #### [facility] CLIA [id number] [address] [place] [address] [place] Potassium [Moles/Vol] 5.3 mmol/L High 3.7-5.1 [facility] Comment on above: Order Comment: Speci men Type: BLOOD SPECIMEN Ordering Facility: [facility] Address: [address] [place] [address] Performed By: #### 2 4321-2 #### [facility] [place] [id number] [address] [place] Sodium [Moles/Vol] 139 mmol/L Normal 136-144 [facility] Comment on above: Order Comment: Speci men Type: BLOOD SPECIMEN Ordering Facility: [facility] Address: [address] [place] [address] Performed By: #### 2 4321-2 #### [facility] IA [id number] [address] [place] [address] [place] Urea nitrogen [Mass/Vol] 18 mg/dL Normal 9-24 [facility] Comment on above: Order Comment: Speci men Type: BLOOD SPECIMEN Ordering Facility: [facility] Address: [address] [place] [address] Performed By: #### 2 4321-2 #### [facility] IA [id number] [address] [place] CBC panel Auto (Bld)on 08-17 Erythrocyte distribution width (RBC) [Ratio] 14.4 % Normal 11.5-15.0 [facility] Comment on above: Order Comment: Speci men Type: BLOOD SPECIMEN Ordering Facility: [facility] Address: [address] [place] [address] Performed By: #### 5 8410-2 #### [facility] IA [id number] [address] [place] Hematocrit (Bld) [Volume fraction] 44.3 % Normal 39.0-51.0 [facility] Comment on above: Order Comment: Speci men Type: BLOOD SPECIMEN Ordering Facility: [facility] Address: [address] [place] [address] Performed By: #### 5 8410-2 #### [facility] IA [id number] [address] [place] [id number] [place] Hemoglobin (Bld) [Mass/Vol] 13.5 g/dL Normal 13.0-17.0 [facility] Comment on above: Order Comment: Speci men Type: BLOOD SPECIMEN Ordering Facility: [facility] Address: [address] [place] [address] Performed By: #### 5 8410-2 #### [facility] CLIA [id number] [place] MCH (RBC) [Entitic mass] 27.8 pg Normal 26.0-34.0 [facility] Comment on above: Order Comment: Speci men Type: BLOOD SPECIMEN Ordering Facility: [facility] Address: [address] [place] [address] Performed By: #### 5 8410-2 #### [facility] IA [id number] [address] [place] MCHC (RBC) [Mass/Vol] 30.5 g/dL Normal 30.5-36.0 [facility] Comment on above: Order Comment: Speci men Type: BLOOD SPECIMEN Ordering Facility: [facility] Address: [address] [place] [address] Performed By: #### 5 8410-2 #### [facility] IA [id number] [address] [place] MCV (RBC) [Entitic vol] 91.2 fL Normal 80.0-100.0 [facility] Comment on above: Order Comment: Speci men Type: BLOOD SPECIMEN Ordering Facility: [facility] Address: [address] [place] [address] Performed By: #### 5 8410-2 #### [facility] IA [id number] [address] [place] Nucleated RBC (Bld) [#/Vol] 10*3/uL Normal <0.01 [facility] Comment on above: Order Comment: Speci men Type: BLOOD SPECIMEN Ordering Facility: [facility] Address: [address] [place] [address] Performed By: #### 5 8410-2 #### [facility] IA [id number] [address] [place] [address] [place] Platelet mean volume (Bld) [Entitic vol] 10.1 fL Normal 9.0-12.7 [facility] Comment on above: Order Comment: Speci men Type: BLOOD SPECIMEN Ordering Facility: [facility] Address: [address] [place] [address] Performed By: #### 5 8410-2 #### [facility] IA [id number] [address] [place] [address] [place] Platelets (Bld) [#/Vol] 252 10*3/uL Normal 150-400 [facility] Comment on above: Order Comment: Speci men Type: BLOOD SPECIMEN Ordering Facility: [facility] Address: [address] [place] [address] Performed By: #### 5 8410-2 #### [facility] IA [id number] [address] [place] [address] [place] RBC (Bld) [#/Vol] 4.86 10*6/uL Normal 4.20-6.00 [facility] Comment on above: Order Comment: Speci men Type: BLOOD SPECIMEN Ordering Facility: [facility] Address: [address] [place] [address] Performed By: #### 5 8410-2 #### [facility] IA [id number] [address] [place] [address] [place] WBC (Bld) [#/Vol] 8.98 10*3/uL Normal 3.70-11.00 [facility] Comment on above: Order Comment: Speci men Type: BLOOD SPECIMEN Ordering Facility: [facility] Address: [address] [place] [address] Performed By: #### 5 8410-2 #### [facility] IA [id number] [address] [place] [address] [facility] [place] CNPGaby 08-17-2024 CNPN Telephone ([facility]) BRIAN ONEAL ([id number]) 1950 M Date Time Provider Department 08/17/24 [...] proceed? Thank you. Sincerely, Riya Liu PA-C [facility] Riya Liu PA-C 08/18/2024 10:42 AM Signed Tamiko Mcduffie APRN.WAGON DRIVER SALESPERSON You; Masood Wilder MD; Rena Murphy RN15 hours ago (7:08 PM) [place], We are the cardiac surgery team. This pt was to have a cardiology appt for clearance for his upcoming surgery, I believe he saw a local carry out clerk outside of the [facility] who can give [...] his ASA? Thank you. Riya Liu PA-C [facility] Riya Liu PA-C 08/19/2024 9:[address] Sanchez, patient OK to stay on ASA martha-operatively. Still working on getting optimization from cardiology office. Letter re-faxed. ALEX Posada [facility] Riya Liu PA-C 08/19/2024 9:54 AM [...] by mo (more content not included)... Normal [facility] HISTORY PHYSICALon HISTORY PHYSICAL HNO ID: [id number] Author: RIYA LIU PA-C Service: ? Author Type: Physician Circuit Tester Type: H&P Filed: 08/19/2024 09:57 Note Text: [...] atorvastatin (Lipitor). 4. Coronary artery disease involving huslia coronary artery of huslia heart without angina pectoris Left heart cath [...] mass in May 2024 during colonoscopy in [place]. No previous treatments have been done. See [...] Male patient (more content not included)... Normal [facility] PT panel Coag (PPP)on 2023 INR Coag (PPP) [Relative time] 1.0 {INR} Normal 0.9-1.3 [facility] Comment on above: Order Comment: Bobby villalpando Type: BLOOD SPECIMEN Ordering Facility: [facility] Address: [address] [place] [address] Result Comment: Rizwana min K Antagonist (VKA) Therapeutic Range: INR 2 to 3 (Target INR of 2.5) Note: For patients treated with VKA drugs, such as warfarin, the [place] [employer] 2012 Guideline recommends [...] 70: 252-289 Performed By: #### 3 4528-0, 25064-7 #### [facility] CLIA [id number] [facility] [address] [place] PT Coag (PPP) [Time] 10.9 s Normal 9.7-13.0 [facility] Comment on above: Order Comment: Bobby villalpando Type: BLOOD SPECIMEN Ordering Facility: [facility] Address: [address] [place] [address] Performed By: #### 3 4528-0, 97727-5 #### [facility] CLIA [id number] [address] [facility] [address] [place] Urinalysis complete panel (U )on 08-17-2024 Bilirubin Ql (U) Negative Normal Negative [facility] Comment on above: Order Comment: Bobby villalpando Type: URINE SPECIMEN Ordering Facility: [facility] Address: [address] [place] [address] Performed By: #### 2 4356-8 #### [facility] [id number] [address] [place] [address] [place] Clarity (Unsp spec) Clear Normal Clear [facility] Comment on above: Order Comment: Speci men Type: URINE SPECIMEN Ordering Facility: [facility] Address: [address] [place] [address] Performed By: #### 2 4356-8 #### [facility] [id number] [place] [address] [place] Color (U) Light Yellow Normal yellow [facility] Comment on above: Order Comment: Speci men Type: URINE SPECIMEN Ordering Facility: [facility] Address: [address] [place] [address] Performed By: #### 2 4356-8 #### [facility] [id number] [address] [place], [place] [id number] [place] Epithelial cells LM.HPF (Urine sed) [#/Area] Few Normal [facility] Comment on above: Order Comment: Speci men Type: URINE SPECIMEN Ordering Facility: [facility] Address: [address] [place] [address] Performed By: #### 2 4356-8 #### [facility] [id number] [address] [place] [address] [place] Glucose Test strip (U) [Mass/Vol] Negative Normal Trace, Negative [facility] Comment on above: Order Comment: Speci men Type: URINE SPECIMEN Ordering Facility: [facility] Address: [address] [place] [address] Performed By: #### 2 4356-8 #### [facility] IA [id number] [address] [place] [address] [place] Hemoglobin Ql (U) Trace Normal Negative, Trace [facility] Comment on above: Order Comment: Speci men Type: URINE SPECIMEN Ordering Facility: [facility] Address: [address] [place] [address] Performed By: #### 2 4356-8 #### [facility] CLIA [id number] [place] [address] [facility] [place] Ketones Ql (U) Negative Normal Negative, Trace [facility] Comment on above: Order Comment: Speci men Type: URINE SPECIMEN Ordering Facility: [facility] Address: [address] [place] [address] Performed By: #### 2 4356-8 #### [facility] IA [id number] [address] [place] [id number] [place] [address] [place] Leukocyte esterase Test strip Ql (U) 75 Red/uL Abnormal Negative, 25 Red/uL [facility] Comment on above: Order Comment: Speci men Type: URINE SPECIMEN Ordering Facility: [facility] Address: [address] [place] [address] Performed By: #### 2 4356-8 #### [facility] IA [id number] [address] [place] [address] [place] Nitrite Ql (U) Negative Normal Negative [facility] Comment on above: Order Comment: Speci men Type: URINE SPECIMEN Ordering Facility: [facility] Address: [address] [place] [address] Performed By: #### 2 4356-8 #### [facility] IA [id number] [address] [place] [address] [place] pH (U) 6.5 [pH] Normal 5.0-8.0 [facility] Comment on above: Order Comment: Speci men Type: URINE SPECIMEN Ordering Facility: [facility] Address: [address] [place] [address] Performed By: #### 2 4356-8 #### [facility] IA [id number] [address] [place], [place] [id number] [place] Protein (U) [Mass/Vol] 2+ Abnormal Trace, Negative [facility] Comment on above: Order Comment: Speci men Type: URINE SPECIMEN Ordering Facility: [facility] Address: [address] [place] [address] Performed By: #### 2 4356-8 #### [facility] IA [id number] [address] [place] [address] [place] RBC LM.HPF (Urine sed) [#/Area] 6-10 /HPF Abnormal 0-3 /HPF [facility] Comment on above: Order Comment: Speci men Type: URINE SPECIMEN Ordering Facility: [facility] Address: [address] [place] [address] Performed By: #### 2 4356-8 #### [facility] IA [id number] [place] [address] [place] Specific gravity (U) [Rel density] 1.017 Normal 1.005-1.030 [facility] Comment on above: Order Comment: Speci men Type: URINE SPECIMEN Ordering Facility: [facility] Address: [address] [place] [address] Performed By: #### 2 4356-8 #### [facility] IA [id number] [address] [place] [address] [place] Urobilinogen Ql (U) Normal Normal Normal [facility] Comment on above: Order Comment: Speci men Type: URINE SPECIMEN Ordering Facility: [facility] Address: [address] [place] [address] Performed By: #### 2 4356-8 #### [facility] IA [id number] [place], [place] [id number] [place] WBC LM.HPF (Urine sed) [#/Area] 11-25 /HPF Abnormal 0-5 /HPF [facility] Comment on above: Order Comment: Speci men Type: URINE SPECIMEN Ordering Facility: [facility] Address: [address] [place] [address] Performed By: #### 2 4356-8 #### [facility] IA [id number] [place] [id number] [place] [address] [place] aPTT PPPon 08-17-2024 aPTT Coag (PPP) [Time] 29.5 s Normal 23.0-32.4 [facility] Comment on above: Order Comment: Speci men Type: BLOOD SPECIMEN Ordering Facility: [facility] Address: [address] [place] [address] Performed By: #### 3 4528-0, 63578-7 #### [facility] CLIA [id number] [facility] [place] [address] [place] CT ABD/PEL W IVCONon 024 CT ABD/PEL W IVCON Normal [facility] CT CHEST W IVCONon 4 CT CHEST W IVCON Normal [facility] Office Visiton 08-11-2024 Follow-up visit [id number] Wayne Oneal Jesus 1950 M Date Provider Department Center 08/11/2024 DARRELL ELIZABETH Family History Problem Relation Age of Onset Coronary artery disease Mother Family Status - Relation Status Age at Mother Level of Service:58477 [place] OFFICE/OUTPATIENT ESTABLISHED LOW MDM 20 MIN Reason for Visit and Comments: Coronary Artery Disease [187] [facility] CNPNon 08-04-2024 CNPN Normal [facility] CBC W Auto Differential pane l (Bld)on 07-30-2024 Basophils (Bld) [#/Vol] 0.04 10*3/uL [facility] Basophils/100 WBC (Bld) 0.6 % [facility] Differential cell count method Nom (Bld) Auto [facility] Eosinophils (Bld) [#/Vol] 0.17 10*3/uL [facility] Eosinophils/100 WBC (Bld) 2.5 % [facility] Erythrocyte distribution width (RBC) [Ratio] 14.8 % 11.5 - 15.0 % [facility] Hematocrit (Bld) [Volume fraction] 37.6 % Low 39.0 - 51.0 % [facility] Hemoglobin (Bld) [Mass/Vol] 11.8 g/dL Low 13.0 - 17.0 g/dL [facility] Immature granulocytes (Bld) [#/Vol] 0.06 10*3/uL [facility] Immature granulocytes/100 WBC (Bld) 0.9 % [facility] Interpretation and review of laboratory results Abnormal [facility] Lymphocytes (Bld) [#/Vol] 1.35 10*3/uL [facility] Lymphocytes/100 WBC (Bld) 19.8 % [facility] MCH (RBC) [Entitic mass] 28.3 pg 26.0 - 34.0 pg [facility] MCHC (RBC) [Mass/Vol] 31.4 g/dL 30.5 - 36.0 g/dL [facility] MCV (RBC) [Entitic vol] 90.2 fL 80.0 - 100.0 fL [facility] Monocytes (Bld) [#/Vol] 0.62 10*3/uL [facility] Monocytes/100 WBC (Bld) 9.1 % [facility] Neutrophils (Bld) [#/Vol] 4.59 10*3/uL [facility] Neutrophils/100 WBC (Bld) 67.1 % [facility] Nucleated RBC (Bld) [#/Vol] [facility] Nucleated RBC/100 WBC (Bld) [Ratio] 0.0 % /100 WBC [facility] Platelet mean volume (Bld) [Entitic vol] 9.5 fL 9.0 - 12.7 fL [facility] Platelets (Bld) [#/Vol] 226 10*3/uL [facility] RBC (Bld) [#/Vol] 4.17 10*6/uL Low 4.20 - 6.0 0 m/uL [facility] WBC (Bld) [#/Vol] 6.83 10*3/uL [facility] Basophils (Bld) [#/Vol] 0.04 10*3/uL Normal <0.11 [facility] Comment on above: Order Comment: Speci men Type: BLOOD SPECIMENOrdering Facility: [facility] Address: [address] [place] [address] Performed By: #### 5 7021-8 ####[facility] [id number] [place] [address] Basophils/100 WBC (Bld) 0.6 % Normal [facility] Comment on above: Order Comment: Speci men Type: BLOOD SPECIMENOrdering Facility: [facility] Address: [address] [place] [address] Performed By: #### 5 7021-8 ####[facility] [id number] [place] [address] Differential cell count method Nom (Bld) Auto Normal [facility] Comment on above: Order Comment: Speci men Type: BLOOD SPECIMENOrdering Facility: [facility] Address: [address] [place] [address] Performed By: #### 5 7021-8 ####[facility] [id number] [place] [address] Eosinophils (Bld) [#/Vol] 0.17 10*3/uL Normal <0.46 [facility] Comment on above: Order Comment: Speci men Type: BLOOD SPECIMENOrdering Facility: [facility] Address: [address] [place] [address] Performed By: #### 5 7021-8 ####[facility] [id number] [place] [address] Eosinophils/100 WBC (Bld) 2.5 % Normal [facility] Comment on above: Order Comment: Speci men Type: BLOOD SPECIMENOrdering Facility: [facility] Address: [address] [place] [address] Performed By: #### 5 7021-8 ####[facility] [id number] [place] [address] Erythrocyte distribution width (RBC) [Ratio] 14.8 % Normal 11.5-15.0 [facility] Comment on above: Order Comment: Speci men Type: BLOOD SPECIMENOrdering Facility: [facility] Address: [address] [place] [address] Performed By: #### 5 7021-8 ####[facility] [facility] [id number] [place] [address] Hematocrit (Bld) [Volume fraction] 37.6 % Low 39.0-51.0 [facility] Comment on above: Order Comment: Speci men Type: BLOOD SPECIMENOrdering Facility: [facility] Address: [address] [place] [address] Performed By: #### 5 7021-8 ####[facility] LABIA [id number] [place] [address] Hemoglobin (Bld) [Mass/Vol] 11.8 g/dL Low 13.0-17.0 [facility] Comment on above: Order Comment: Speci men Type: BLOOD SPECIMENOrdering Facility: [facility] Address: [address] [place] [address] Performed By: #### 5 7021-8 ####[facility] LABCLIA [id number] [place] [address] Immature granulocytes (Bld) [#/Vol] 0.06 10*3/uL Normal <0.10 [facility] Comment on above: Order Comment: Speci men Type: BLOOD SPECIMENOrdering Facility: [facility] Address: [address] [place] [address] Performed By: #### 5 7021-8 ####[facility] LABIA [id number] [place] [address] Immature granulocytes/100 WBC (Bld) 0.9 % Normal [facility] Comment on above: Order Comment: Speci men Type: BLOOD SPECIMENOrdering Facility: [facility] Address: [address] [place] [address] Performed By: #### 5 7021-8 ####[facility] LABCLIA [id number] [place] [address] Lymphocytes (Bld) [#/Vol] 1.35 10*3/uL Normal 1.00-4.00 [facility] Comment on above: Order Comment: Speci men Type: BLOOD SPECIMENOrdering Facility: [facility] Address: [address] [place] [address] Performed By: #### 5 7021-8 ####[facility] LABCLIA [id number] [place] [address] Lymphocytes/100 WBC (Bld) 19.8 % Normal [facility] Comment on above: Order Comment: Speci men Type: BLOOD SPECIMENOrdering Facility: [facility] Address: [address] [place] [address] Performed By: #### 5 7021-8 ####[facility] LABCLIA [id number] [place] [address] MCH (RBC) [Entitic mass] 28.3 pg Normal 26.0-34.0 [facility] Comment on above: Order Comment: Speci men Type: BLOOD SPECIMENOrdering Facility: [facility] Address: [address] [place] [address] Performed By: #### 5 7021-8 ####[facility] LABCLIA [id number] [place] [address] MCHC (RBC) [Mass/Vol] 31.4 g/dL Normal 30.5-36.0 [facility] Comment on above: Order Comment: Speci men Type: BLOOD SPECIMENOrdering Facility: [facility] Address: [address] [place] [address] Performed By: #### 5 7021-8 ####[facility] LABCLIA [id number] [place] [address] MCV (RBC) [Entitic vol] 90.2 fL Normal 80.0-100.0 [facility] Comment on above: Order Comment: Speci men Type: BLOOD SPECIMENOrdering Facility: [facility] Address: [address] [place] [address] Performed By: #### 5 7021-8 ####[facility] LABIA [id number] [place] [address] Monocytes (Bld) [#/Vol] 0.62 10*3/uL Normal <0.87 [facility] Comment on above: Order Comment: Speci men Type: BLOOD SPECIMENOrdering Facility: [facility] Address: [address] [place] [address] Performed By: #### 5 7021-8 ####[facility] LABCLIA [id number] [place] [address] Monocytes/100 WBC (Bld) 9.1 % Normal [facility] Comment on above: Order Comment: Speci men Type: BLOOD SPECIMENOrdering Facility: [facility] Address: [address] [place] [address] Performed By: #### 5 7021-8 ####[facility] LABCLIA [id number] [place] [address] Neutrophils (Bld) [#/Vol] 4.59 10*3/uL Normal 1.45-7.50 [facility] Comment on above: Order Comment: Speci men Type: BLOOD SPECIMENOrdering Facility: [facility] Address: [address] [place] [address] Performed By: #### 5 7021-8 ####[facility] LABCLIA [id number] [place] [address] Neutrophils/100 WBC (Bld) 67.1 % Normal [facility] Comment on above: Order Comment: Speci men Type: BLOOD SPECIMENOrdering Facility: [facility] Address: [address] [place] [address] Performed By: #### 5 7021-8 ####[facility] LABCLIA [id number] [place] [address] Nucleated RBC (Bld) [#/Vol] 10*3/uL Normal <0.01 [facility] Comment on above: Order Comment: Speci men Type: BLOOD SPECIMENOrdering Facility: [facility] Address: [address] [place] [address] Performed By: #### 5 7021-8 ####[facility] LABCLIA [id number] [place] [address] Nucleated RBC/100 WBC (Bld) [Ratio] 0.0 /100 WBC Normal [facility] Comment on above: Order Comment: Speci men Type: BLOOD SPECIMENOrdering Facility: [facility] Address: [address] [place] [address] Performed By: #### 5 7021-8 ####[facility] LABCLIA [id number] [place] [address] Platelet mean volume (Bld) [Entitic vol] 9.5 fL Normal 9.0-12.7 [facility] Comment on above: Order Comment: Speci men Type: BLOOD SPECIMENOrdering Facility: [facility] Address: [address] [place] [address] Performed By: #### 5 7021-8 ####[facility] LABCLIA [id number] [place] [address] Platelets (Bld) [#/Vol] 226 10*3/uL Normal 150-400 [facility] Comment on above: Order Comment: Speci men Type: BLOOD SPECIMENOrdering Facility: [facility] Address: [address] [place] [address] Performed By: #### 5 7021-8 ####[facility] LABCLIA [id number] [place] [address] RBC (Bld) [#/Vol] 4.17 10*6/uL Low 4.20-6.00 [facility] Comment on above: Order Comment: Speci men Type: BLOOD SPECIMENOrdering Facility: [facility] Address: [address] [place] [address] Performed By: #### 5 7021-8 ####[facility] LABCLIA [id number] [place] [address] WBC (Bld) [#/Vol] 6.83 10*3/uL Normal 3.70-11.00 [facility] Comment on above: Order Comment: Speci men Type: BLOOD SPECIMENOrdering Facility: [facility] Address: [address] [place] [address] Performed By: #### 5 7021-8 ####[facility] LABCLIA [id number] [place] [address] CEA SerPl-mCncon 07-30-2024 Carcinoembryonic Ag [Mass/Vol] 2.3 ng/mL Normal <=2.9 [facility] Comment on above: Order Comment: Speci men Type: BLOOD SPECIMENOrdering Facility: [facility] Address: [address] [place] [address] Result Comment: Carc inoembryonic antigen test is used as an aid in monitoring response to treatment or recurrence in patients with established colorectal, breast, lung, prostatic, pancreatic, and ovarian carcinomas. Clinical correlation is required.The Carcinoembryonic antigen test was performed using the [employer] DXI paramagnetic particle chemiluminescent immunoassay method. Results obtained with different assay methods or kits cannot be used interchangeably. Performed By: #### 2 039-6 ####[facility] LABCLIA [id number] [place] [address] [place] CNOVon 07-30-2024 CNOV Normal [facility] CNOVSPon 07-30-2024 CNOVSP Normal [facility] CNPNon 07-30-2024 CNPN Normal [facility] Comprehensive metabolic 2000 panelOrdered By: Jeffrey Hartman on 07-30-2024 Albumin [Mass/Vol] 4.2 g/dL 3.9 - 4.9 g/dL [facility] ALP [Catalytic activity/Vol] 57 U/L 38 - 113 U/L [facility] ALT [Catalytic activity/Vol] 7 U/L Low 10 - 54 U/L [facility] Anion gap [Moles/Vol] 11 mmol/L 8 - 15 mmol/L [facility] AST [Catalytic activity/Vol] 12 U/L Low 14 - 40 U/L [facility] Bilirubin [Mass/Vol] 0.6 mg/dL 0.2 - 1 .3 mg/dL [facility] Calcium [Mass/Vol] 9.5 mg/dL 8.5 - 10. 2 mg/dL [facility] Chloride [Moles/Vol] 102 mmol/L 98 - 10 7 mmol/L [facility] CO2 [Moles/Vol] 25 mmol/L 22 - 30 mmol/L [facility] Creatinine [Mass/Vol] 1.29 mg/dL High 0.73 - 1.22 mg/dL [facility] GFR/1.73 sq M.predicted among non-blacks MDRD (S/P/Bld) [Vol rate/Area] 57 mL/min/{1.73_m2} Low - PINF [facility] Comment on above: Estimated Glomerular Filtration Rate [...] [Mass/Vol] 95 mg/dL 74 - 99 mg/dL [facility] Comment on above: The [place] Diab[employer] Association (ADA) provides guidance for [...] Standards of Medical Care in Diabetes 2016, [place] [employer]. Diabetes Care. 2016.39(Suppl 1). Interpretation and review of laboratory results Abnormal [facility] Potassium [Moles/Vol] 5.2 mmol/L High 3.7 - 5.1 mmol/L [facility] Protein [Mass/Vol] 6.7 g/dL 6.3 - 8.0 g/dL [facility] Sodium [Moles/Vol] 138 mmol/L 136 - 144 mmol/L [facility] Urea nitrogen [Mass/Vol] 18 mg/dL 9 - 24 mg/dL [facility] Comprehensive metabolic 2000 panelon 07-30-2024 Albumin [Mass/Vol] 4.2 g/dL Normal 3.9-4.9 [facility] Comment on above: Order Comment: Speci men Type: BLOOD SPECIMENOrdering Facility: [facility] Address: [address] [place] [address] Performed By: #### 2 4323-8 ####[facility] LABCLIA [id number] [place] [address] ALP [Catalytic activity/Vol] 57 U/L Normal 38-113 [facility] Comment on above: Order Comment: Speci men Type: BLOOD SPECIMENOrdering Facility: [facility] Address: [address] [place] [address] Performed By: #### 2 4323-8 ####[facility] LABCLIA [id number] [place] [address] ALT [Catalytic activity/Vol] 7 U/L Low 10-54 [facility] Comment on above: Order Comment: Speci men Type: BLOOD SPECIMENOrdering Facility: [facility] Address: [address] [place] [address] Performed By: #### 2 4323-8 ####[facility] LABCLIA [id number] [place] [address] Anion gap [Moles/Vol] 11 mmol/L Normal 8-15 [facility] Comment on above: Order Comment: Speci men Type: BLOOD SPECIMENOrdering Facility: [facility] Address: [address] [place] [address] Performed By: #### 2 4323-8 ####[facility] LABCLIA [id number] [place] [address] AST [Catalytic activity/Vol] 12 U/L Low 14-40 [facility] Comment on above: Order Comment: Speci men Type: BLOOD SPECIMENOrdering Facility: [facility] Address: [address] [place] [address] Performed By: #### 2 4323-8 ####[facility] LABCLIA [id number] [place] [address] Bilirubin [Mass/Vol] 0.6 mg/dL Normal 0.2-1.3 [facility] Comment on above: Order Comment: Speci men Type: BLOOD SPECIMENOrdering Facility: [facility] Address: [address] [place] [address] Performed By: #### 2 4323-8 ####[facility] LABCLIA [id number] [place] [address] Calcium [Mass/Vol] 9.5 mg/dL Normal 8.5-10.2 [facility] Comment on above: Order Comment: Speci men Type: BLOOD SPECIMENOrdering Facility: [facility] Address: [address] [place] [address] Performed By: #### 2 4323-8 ####[facility] LABCLIA [id number] [place] [address] Chloride [Moles/Vol] 102 mmol/L Normal 98-107 [facility] Comment on above: Order Comment: Speci men Type: BLOOD SPECIMENOrdering Facility: [facility] Address: [address] [place] [address] Performed By: #### 2 4323-8 ####[facility] LABCLIA [id number] [place] [address] CO2 [Moles/Vol] 25 mmol/L Normal 22-30 [facility] Comment on above: Order Comment: Speci men Type: BLOOD SPECIMENOrdering Facility: [facility] Address: [address] [place] [address] Performed By: #### 2 4323-8 ####[facility] LABCLIA [id number] [place] [address] Creatinine [Mass/Vol] 1.29 mg/dL High 0.73-1.22 [facility] Comment on above: Order Comment: Speci men Type: BLOOD SPECIMENOrdering Facility: [facility] Address: [address] [place], [place] [address] Performed By: #### 2 4323-8 ####[facility] LABCLIA [id number] [place] [address] Creatinine and Glomerular filtration rate.predicted panel (S/P/Bld) 57 mL/min/1.73m??? Low >=60 [facility] Comment on above: Order Comment: Bobby villalpando Type: BLOOD SPECIMENOrdering Facility: [facility] Address: [address] [place] [address] Result Comment: Annalisa mated Glomerular Filtration Rate [...] actual GFR. Performed By: #### 2 4323-8 ####[facility] LABCLIA [id number] [place] [address] Glucose [Mass/Vol] 95 mg/dL Normal 74-99 [facility] Comment on above: Order Comment: Bobby villalpando Type: BLOOD SPECIMENOrdering Facility: [facility] Address: [address] [place] [address] Result Comment: The [place] Diabetes Association (ADA) provides guidance for cutoff [...] Standards of Medical Care in Diabetes 2016, [place] [employer]. Diabetes Care. 2016.39(Suppl 1). Performed By: #### 2 4323-8 ####[facility] LABCLIA [id number] [place] [address] Potassium [Moles/Vol] 5.2 mmol/L High 3.7-5.1 [facility] Comment on above: Order Comment: Speci men Type: BLOOD SPECIMENOrdering Facility: [facility] Address: [address] [place] [address] Performed By: #### 2 4323-8 ####[facility] LABCLIA [id number] [place] [address] Protein [Mass/Vol] 6.7 g/dL Normal 6.3-8.0 [facility] Comment on above: Order Comment: Speci men Type: BLOOD SPECIMENOrdering Facility: [facility] Address: [address] [place] [address] Performed By: #### 2 4323-8 ####[facility] LABCLIA [id number] [place] [address] Sodium [Moles/Vol] 138 mmol/L Normal 136-144 [facility] Comment on above: Order Comment: Speci men Type: BLOOD SPECIMENOrdering Facility: [facility] Address: [address] [place] [address] Performed By: #### 2 4323-8 ####[facility] LABCLIA [id number] [place] [address] Urea nitrogen [Mass/Vol] 18 mg/dL Normal 9-24 [facility] Comment on above: Order Comment: Speci men Type: BLOOD SPECIMENOrdering Facility: [facility] Address: [address] [place] [address] Performed By: #### 2 4323-8 ####[facility] LABCLIA [id number] [place] [address] Fer[facility]in [facility] Ferritin [Mass/Vol] 136.0 ng/mL Normal 30.3-565.7 [facility] Comment on above: Order Comment: Speci men Type: BLOOD SPECIMENOrdering Facility: [facility] Address: [address] [place] [address] Performed By: #### 2 284-8, 71385-4, 2276-02, 2132-07 ####[facility] LABCLIA [id number] [address] [address] [place] Folate SerPl-mCncon 07-30-20 Folate [Mass/Vol] 11.8 ng/mL Normal >4.7 [facility] Comment on above: Order Comment: Speci men Type: BLOOD SPECIMENOrdering Facility: [facility] Address: [address] [place] [address] Performed By: #### 2 284-8, 06408-9, 4, 2132-07 ####[facility] LABCLIA [id number] [place] [id number] [place] Iron and Iron binding capaci ty panelon 07-30-2024 Iron [Mass/Vol] 43 ug/dL Normal 41-186 [facility] Comment on above: Order Comment: Speci men Type: BLOOD SPECIMENOrdering Facility: [facility] Address: [address] [place] [address] Performed By: #### 2 284-8, 77406-7, 2276-02, 2132-07 ####[facility] LABIA [id number] [address] [place] Iron binding capacity [Mass/Vol] 324 ug/dL Normal 232-386 [facility] Comment on above: Order Comment: Speci men Type: BLOOD SPECIMENOrdering Facility: [facility] Address: [address] [place] [address] Performed By: #### 2 284-8, 37434-8, 4, 2132-07 ####[facility] LABIA [id number] [place] [id number] [place] Iron/TIBC [Molar ratio] 13.3 % Low 15.0-57.0 [facility] Comment on above: Order Comment: Speci men Type: BLOOD SPECIMENOrdering Facility: [facility] Address: [address] [place] [address] Performed By: #### 2 284-8, 84214-6, 6-4, 2131-9 ####[facility] LABIA [id number] [place] [id number] [place] PSA [facility] 07-30-2024 Prostate specific Ag [Mass/Vol] ng/mL Normal <2.60 [facility] Comment on above: Order Comment: Speci men Type: BLOOD SPECIMENOrdering Facility: [facility] Address: [address] [place] [address] Result Comment: Tota l PSA test methodology used is the Electrochemiluminescence Immunoassay by [employer]. Total PSA values by differing methodologies cannot be interchanged. Performed By: #### 2 857-1 ####[facility] LABIA [id number] [place] [address] [place] Vit B12 [facility] 024 Cobalamin (Vitamin B12) [Mass/Vol] 593 pg/mL Normal 232-1245 [facility] Comment on above: Order Comment: Speci men Type: BLOOD SPECIMENOrdering Facility: [facility] Address: [address] [place] [address] Performed By: #### 2 284-8, 29958-4, 6-4, 9 ####[facility] LABIA [id number] [place] [address] [place] CNPNon 07-29-2024 CNPN Normal [facility] Office Visiton 07-29-2024 Follow-up visit [id number] Wayne Oneal 1950 M Date Provider Department Center 07/29/2024 [place] Family History Problem Relation Age of Onset Coronary artery disease Mother Family Status - Relation Status Age at Mother Level of Service:27424 AR OFFICE/OUTPATIENT ESTABLISHED MOD MDM 30 MIN Reason for Visit and Comments: Coronary Artery Disease [187] [facility] DPYD/UGT1A1 GENOTYPING PANEL on 09-17-2024 DPYD/UGT1A1 GENOTYPING PANEL RESUL [employer] [facility]) DPYD and UGT1A1 Genotyping Laboratory Accession Number: [id number] DPYD Genotype: *1/*1 DPYD Activity Score: 2 [...] molecular testing details should be directed to [employer] . One decreased function UGT1A1 allele, in [...] molecular testing details should be directed to [employer] [facility] . The DPYD gene encodes dihydropyrimidine dehydrogenase [...] Variant Details: NA UGT1A1 Variant Details: UGT1A1 [id number], c.-346C>T, g.[id number]>T; (legacy name 80), UGT1A1 [id number], c.-41_-40dupTA g.[id number]; (legacy name 28) DPYD Additional Information: In addition to increased risk of 5-fluorouracil toxicity, variants in the DPYD gene may be associated with DPD deficiency, an autosomal recessive inborn error of metabolism (OMIM: 114832). DPD deficiency exhibits a wide range of [...] list below) in the DPYD gene (OMIM 139981) and UGT1A1 gene (OMIM 523011). This test does not detect all sequence [...] used is GRCh38/hg38 (more content not included)... [facility] CNPNon 07-23-2024 CNPN Normal [facility] CYTOLOGY NON-GYNOrdered By: Lizzette Ayers on 07-23-2024 Case Report Medical Cytology Rep ort Case: [id number] Authorizing Provider: Elliott Sanchez MD Collected: 07/22/2024 10:17 AM Ordering Location: Urology Received: 07/22/2024 04:10 PM Pathologist: Lizzette Ayers MD Specimen: Urine, Voided [facility] Work Phone: Clinical History x2komOXeVATbc3kuUPEw bGFuZzEw YdGoXzOuNqd1IKNejwT2Pem4SDGt KResbP3uPBQzVAbxK8zebcHtcBPm REWwQIh1bZ9cwDtgeA7jNqCjNvFn YAEdT7BnGO6eyuhvWs5kILqlyel8 s5BmoX4fiqdmzBMzGI3= [facility] Work Phone: FINAL DIAGNOSIS y3wayURjBDTjzOByMAhd MlxhbnNp XBTbaKAdL3UeijcwSGomYO6zQL1m uZuhnUPqhJPlRAJdPrTor6wau042 eXDnx7tzAYWFwwfdfRy7hYnxO18e r5R6ZyuxY9bvUQJrRNruDEOfILoz bHVlMDtccmVkMFxncmVlbjBcYmx1 KWH3TOr0BUQstSEjzqWrUqHhZXNk xPAhxJN3CYZhDY0fehxbMmBnQE1w zttaToWzXT5hmqm9KwLqQG2yybet RjBdNVgvVHYpmed0VxXtVl4kkJUm qPtwVXsfJ6gjqT5bBoL4SVeqN4qd eM2qEPe1TCqvKNAioQT9iagoBZbs WTZnlzI8fmjnAZbmEECjwHI6ltqv ONpvZCRpBmS1xyyfKSwxDXMgRPIz YWluXGJcZnMyMlxjZjEgQSAtIFVy vV5mNBXDv4tpWFGqNNPpnxVcFLOc QTKjAGDqVFC7kGkwROxvcSCjaXhy uDorrSPpZBoxswO3fKJwKM1qmopc PZDdYDuwjgYuFDQdexRfP0vvjxfj yubzns93GR19jOEqo2xpPTDffCEn gl2nfUffUlikOYRlQSFxOVZvXWYj IFxwYXIgICAgICBccGFyXGNmMFx0 CUOkPGCeKUJsGOCulwdfTPInT1Nr XHBhclxiMFxjZjBccGFyfQ== [facility] Work Phone: Gross Description m4bcbZHyNAJudOLSMIX8 VXPhEQ7g iRkccUg2dDcmYJUyqfZ0oAUnLTpp k7juRSC2i3psxfTEOstkAAObQA4k FCmiFPOxRZ5iHkPsHUWfChNzCWVd dAMpveTxTpFiCXNktDSjoRD3RDYe FX4ntstpHEmgONbxMNMclnQ7CUZk yNYjX1BkMVNiPO2whzmhNVA4MCEW ItqkNz3cbSSzhUopJcSqIkMlJDDt PUAeAKCbs9sidvRPnhyczHt4yI0J BVIeS9UgYV5Pf5uhEUYkcOKmBPY2 PGgft8mcGYtbJFW2HIAbZZFoDGYf OD4JIiIdBVvkKHJ1VwlyRbO8FPt9 NSMWHRGzSEJ4XmslRILzMFy9CPpr XFxuaCBcXHQgMSBcXGZsIFxcbmN9 z7vfTGQpcKCfEGA3CMryu2ygNCdi IYI3DBPlPtBxRWFqTL3YIcUmXSfh GFD3ZwfyVnW2SEe5ENCEWrOsJuRy NVgfMFE4XYmcBCq8AVb2AIrZBsGw OheoVmf3AKx8FDV8TQJlIxZiAHRq SxHdXLAbUJZcYZhtnWTnRZ3exMxk WSZcNN2JYBEvNSqtVEWtJyQrYA8h VXJpbmUsIFZvaWRlZFxsdHJjaFxw YXIgDQpccGFyZCANClxwbGFpblxs lFVxsAudhqMhINNcyNVRWBU4PY8m ZQVEBngibCEhLDEjp2CzFVagmSgw GRQmGqPoNTowRpRqYFCuGDXpI1Du S8auFIWekWczbMMijRPtxY74EDGw nAgiVVckMCTpQ49jf9GSq5Kpg9ex eUgll7IowTCpKE71CBBmzDUcFSD1 QB1hxBzaLARdTHmqsDZwULLRYbvn ppDcHD9BxC== [facility] Work Phone: Performing Lab v8fmeYHpLRVea5pcKJKi bGFuZzEw MzNcZnRuYmpcdWMxIHtccnRmMVxh viTiLSOpSgfzkdxgTJFhQVN9frDa QSAtVJZ7KMC8MfGce9G1XTNcHoCc TCNkKO3fhBzlHQXvIF1cCWWyQ2le wV8fuep3KqDpJYScMkR1GXTgnmO0 Gto4BRSgPPvzi9cip5VrXQJdXVe7 xLarClHeMHPcc6szwqEbXaYeOQTh IURyJLReuFCyQ649j1afi4pwhwNc rQD2RBVzHHD4IPneuzPimwZ0UCgt aQIzOkB5XIzibqOpKElpxbGfogDp Efz3AEQwU334HMN1vNpea8kySTA1 RRFlCKNoQtZtYk7tqTLbK607HNNl FBCUWHVuaOq6TEKuzkZykzDzjIUS t131H761q2zwILPuwsUyeBbSgxli d6rdR381AMJalGCggwByWbLlVHHb nMYihCB3PHBtUY3caucwBCrkOYak MMNakvU7OJDtbTQmA4ElBYSgIU7o txaeCUS7UDhlWJJqYFD4CeIkPTJr u8Doxgg5PfKvgd0eza46TGL0q1Dl nZbtVSL5EOV8DqJlXr7iwKSvBGDg QL0zMdEcsSEoPVDusr14rAadOQdw ngHekF1oGyXbGXJgmMMoHBGxAD7x zCQwEIYknW5cbjxjANQdBrFgvhtk LGGuyDajkbVzGs5fuXlcWIZ5FCgo U4hexP2wWjB9EFygS8yymI3wPPo9 DEjxsLV4IYMvjO8bUE7mailpy7ju EFwjXNojPTGuwrG4fcA7VGIhrORm N8TesR4sFQWqGK5mgdrqs8fiLJU3 PZiwWPOaQQD7FnLtNUFcd2Acrud8 [id number] ztYtT2epdJKtboiubZPsnmfuKSwy njK0ZKWtNCHgZMfaEKEdSDTeTzFg bGFuZzEwMzNcaGljaFxmMVxkYmNo NQAkGXogH2cbMcVtZmJpVaTCPMFk ihkjSGrmW31qvZ3gYQ95YMDdtFOy eTZeiK6qnM7saVO4NHZmqoTfayoy BgNyKFFuo5KvHOEcTGVoN5mhnjTu SZ9rBAQkdM3gDdzjGXVjMAYViILa uOMtGKFkIORQvHW5PDgweaSaC2vo NDQxOTUgICBDTElBIyAzNkQwNjU2 VGr6XGCfch58i3lyvQCmWGRqxCDu QtEfZKHrQZSwt1nbMPCxxWViOmCl WiOtExHmFjwmtRQyZZDaJxHkm7nz q343rSXbr7tcLUOfOyW1bCWzOTFt bFKnL639AYOfZQzqz9ydk3GaBROe iRWbh7C7ZZBKvikilLz1yKqpS56j e0M3GibzL5gdNLOpPRHgN8TrAF1m DDNdAiw5FZS4CLK7FTYiEJZkY7Hh GJ5uLLQenXPgRDe8w3gpcWgdJDVs XDH8h0mrPTdrzeEiTD1geb0kwPh0 e9qziuTvUPZzHAFivYKEKHDcV7Xe mVfcCk6ekBc3iVscSpzzCPW6Xvu4 IM3vma17xoz8oAkmDWZmffonJiZ2 MEmqHAApzmkiHXz3TJqqEYUyxLA8 ZPPhrLXrU7XgMEkyDV5tssl9IKG5 HNrjRYPgZxC9LTDuwAGyVZLrdDpu ZWlpy211LQD7EpMcYG1tV8Mof2A0 hS4wpECuVICkyTZvPzYoONPurj7d eQGoEIapq5IdNXA9tqV4mPTdlEYw NUDeYH61Bvztb5KkAgewl0CqG71q wYB9RNemk7ugVL7sFrS6mqBhOSjr e8nmsH3mUwM7TEoeCN0uAT6cMHLw hM8lzinzPKWhKwGmuwfvTMSlnLhl qwCdBa3dmFzjHUT9ZNwrG4pdrR4e RjE9IFdxC8aayR6gCYt1GLdzeRS7 AQLtfL4sQX0glyevl8ehMZayNDii WIZvmbX4yzUrVWDpiFZdK4MfaI4v RPFvKF2mitvec7zeIKO0QTqoXVHp CKY0DjMiITDcz3Tmoqi5OuLkj6Qo gPHcTRakX03dq851KFXabiDtH9tm vKVxqsxvmHBnujnjQZxkcgG3YZWd XHBsYWluXGYxXGZzMjBcbGFuZzEw MzNcaGljaFxmMVxkYmNoXGYxXGxv V4roEgEfQiFdLPHIrPGnem4ewSzg LZmlmPIpqJCyxDA8cQ8nNAFuyyHo ra9rJPFylPIHjEW2AIkiwmHwG8ws ladfVUM6HKYxMIU0V6qiCRLKdbGm SCZsONSgbWZcKBBPBLJ6WVI8HYTq KWDMWRZdZIK5GLM1VLRmQBJruGAp XHBhclxwYXJkXHBsYWluXGYwXGZz JxPbyWqpjH1qAaXdZdHbAFmzJT2f SHUfQ7rgaDNqSPFjGVBlG6ipQsYd kE5raShaKYsrQsBpAhFeWIbomTMu wOVOVPMifeZ5d0Y4XVqmgRYfungg RLsqyoLdCWbonfmvXCJcSDnuG0ns KtXdVBVpsIgkWQsdo4ZvKNNuAPUc KoCjVJouKBO6k0L7YNddaEPgwvNT HvDCHO1gaKJamtviCU6IYmvihBGi blxmMVxmczIyXGxhbmcxMDMzXGhp U3umTsWcWXYtbUtsDQjpo3SxMJSj XGZzMjJccGFyfX0= [facility] Work Phone: [facility] Work Phone: Bacteria Ur Culton 4 Bacteria identified Cx Nom (U) ORGANISM ID: 1 <10,000 CFU/ml Normal urogenital bola Normal [facility] Comment on above: Performed By: #### 6 30-4 ####[facility] LABCLIA [id number] [place] [address] [place] CNOVon 07-22-2024 CNOV Normal [facility] CNOVSPon 07-22-2024 CNOVSP Normal [facility] CYTOLOGY NON-GYNon 4 CASE REPORT Normal [facility] Comment on above: Order Comment: Speci men Type: URINE SPECIMENOrdering Facility: [facility] Address: [address] [place] [address] Result Comment: [facility] Cytology Report Case: [id number] Provider: Elliott Sanchez MD Collected: 07/22/2024 10:17 AMOrdering Location: Urology Received: 07/22/2024 04:10 PMPathologist: Lizzette Ayers MDSpecimen: Urine, Voided Performed By: #### C YTONON ####[facility] LABCLIA [id number] [place] [address] [place] CLINICAL HISTORY screening for genitourinary Normal [facility] Comment on above: Order Comment: Speci men Type: URINE SPECIMENOrdering Facility: [facility] Address: [address] [place] [address] Performed By: #### C YTONON ####[facility] LABCLIA [id number] [place] [address] [place] FINAL DIAGNOSIS Normal [facility] Comment on above: Order Comment: Speci men Type: URINE SPECIMENOrdering Facility: [facility] Address: [address] [place] [address] Result Comment: A - Urine, Voided Atypical urothelial cells with marked degenerative changes, not otherwise diagnostic. Performed By: #### C YTONON ####[facility] LABCLIA [id number] [place] [address] [place] FINAL PERFORMING LAB Normal [facility] Comment on above: Order Comment: Speci men Type: URINE SPECIMENOrdering Facility: [facility] Address: [address] [place] [address] Result Comment: Tech nical component, documentation nurse screening performed at [facility], [address] [place] [address] CLIA# [id number] interpretation performed at [facility], [address] [place] [address] CLIA# [id number] Director: Jeffrey Tolentino M.D. Performed By: #### C YTONON ####[facility] LABCLIA [id number] [place] [address] [place] GROSS DESCRIPTION Normal [facility] Comment on above: Order Comment: Speci men Type: URINE SPECIMENOrdering Facility: [facility] Address: [address] [place] [address] Result Comment: A. U rine, Vavnjk380 cc clear light yellow fluid Performed By: #### C YTONON ####[facility] LABCLIA [id number] [place] [address] [place] DPYD/UGT1A1 GENOTYPING PANEL on 07-22-2024 DPYD/UGT1A1 GENOTYPING PANEL RESULT Normal [facility] Comment on above: Order Comment: Speci men Type: BLOOD SPECIMENOrdering Facility: [facility] Address: [address] [place] [address] Result Comment: [facility] Rocket FuelogenMobincube (PGx) DPYD and UGT1A1 GenotypingLaboratory Accession Number: [id number] Genotype: *1/*1DPYD Activity Score: 2DPYD Predicted Phenotype: DPYD Normal LlrpixnebzxEBO5T4 Genotype: *1/*80+*04SBD9O4 Predicted Phenotype: UGT1A1 Intermediate MetabolizerInterpretation:Two normal function [...] isassociated with a UGT1A1 intermediate metabolizer phenotype. UNJ1H0wqtaxqwmyyfr metabolizers are not expected to require (based onpharmacogenomic results alone) selective adjustment of the dose ofmedications metabolized by UGT. Please consult a clinical pharmacistfor more information regarding drug therapy. Questions regardingmolecular testing details should be directed .The DPYD gene encodes dihydropyrimidine dehydrogenase (DPD). Thisenzyme is involved in the metabolism of fluoropyrimidines. The WVF0Y8hyww encodes UDP-glucuronosyltransferase (UGT). UGT is involved in [...] lists the variantsinterrogated by this test.DPYD Variant Details:FYEAB3Y2 Variant Details:UGT1A1 ia203588, c.-346C>T, g.233485073Z>T; (legacy name 80), ONQ5J2sn8180553, c.-41_-40dupTA g.[id number]; (legacy name 28)DPYD Additional Information:In addition to increased risk of 5-fluorouracil toxicity, variants inthe DPYD gene may be associated with DPD deficiency, an autosomalrecessive inborn error of metabolism (OMIM: 043538). DPD deficiencyexhibits a wide range of phenotypic [...] list below) in the DPYD gene (OMIM 466400) gdeXGN8F3 gene (OMIM 371490). This test does not detect all sequencevariants [...] orabsence of the following variants, RefSNP ID: [id number], [id number] (TA repeats), and [id number].DPYD star alleles and targeted variants:RefSNP ID Legacy Total Allele Highest Allele Name Frequency Frequency General Population (Population)No variantdetected *[id number] *2A 0.6% 2.4% (Eur F)xk0757949 *8 0.01% 0.03% (S )[id number] *10 n/gnv73393970 *12 0.0008% 0.003% (S )[id number] *13 0.03% 0.06% (Eur F)[id number] Y186C 0.2% 2.15% ()[id number] c.2846A>T 0.3% 0.5% (Eur NF)[id number] HapB3 1.4% 2.1 % (Eur NF)cm40240515 HapB3(c.1236G>A) 1.4% 2.1% (Eur NF)Population frequencies are from gnomAD and may be different inspecific ethnic groups. The allele frequency shown is the total allelefrequency in all populations. The highest allele frequency for asingle population is also noted (Eur F = Grenadian, Eur NF = non-Grenadian, S = South ). Note: [id number] (HapB3)and [id number] (c.1236G>A) are in linkage disequilibrium thus aretypically seen together.References:1) Clinical Pharmacogenetics Implementation Consortium (CPIC):www.CPICpgx.org2) Pharmacogene Variation Consortium (PharmVar): www.PharmVar.org3) Genome Aggregation Database V2.1.1 (gnomAD), accessed November2021, https://Sutter Healthomad.CreativeWorxtitute.org4) Anatoliy Silvagh EM, Bonifacio JM, et al. PharmacogenomicsKnowledge for Personalized Medicine Clinical Pharmacology andTherapeutics (2012) 92(4): 414-417.5) Paty U, Randa BRYANT, Salvador SM, et al. Clinical PharmacogeneticsImplementation Consortium (CPIC) Guideline for DihydropyrimidineDehydrogenase Genotype and Fluoropyrimidine Dosin Update. ClinPharmacol Ther. 2018;103(2):210-216.6) MenoGeniX, whistleBox of Medicine 2020. Dihydropyrimidinedehydrogenase deficiency, accessed 30 May 2021,https://medlineplus.gov/genetics/condition/dihydropyrimidine -dehydrogenase-deficiency/#resources7) Marguerite N, Malgorzata SHAW, Maddy BROOKSM, delcambre Sarah ABP. Purine andPyrimidine Metabolism: Pyrimidine Metabolism: DihydropyrimidineDehydrogenase. Jaylon and Mike's Principles and Practice of MedicalGenetics and Genomics: Metabolic Disorders, Seventh Edition. Edited byAbril Vo al, Elsevier. 2020. Sections 6.3.4 - 6.3.4.4https://hzv-rufcxqpwkud-lhs.ccmain.[facility].org/#!/content/ book/3-s2.0-H8045324152280481571?scrollTo=%39os80949896) Jose RS, Cherri MH, Gwen CE, et al. Clinical PharmacogeneticsImplementation Consortium (CPIC) Guideline for UGT1A1 and AtazanavirPrescribing. Clinical Pharmacology and Therapeutics (2016) Apr;99(4):363-9.9) King Tg, Nathalie GODWIN. Overview of Glibert's syndrome. Drug TherBull. 2019 Dec 57(2):27-30.10) [facility] 2020, Gilbert Syndrome, accessed 30 May 2021,https://my.[facility].org/health/diseases/80860-huyeizs s-syndromeDisclaimer:This test was developed and its performance characteristics determinedby [facility]'s Pathology and Laboratory Medicine Department. Ithas not been cleared or approved by the FDA. [facility] is regulated under CLIAas certified to perform high-complexity testing. This test is used forclinical purposes. It should not be regarded as investigational or forresearch.Testing and interpretation performed at [facility], [address] [place] [address]. [facility] Number: [id number] reviewed by Maria Alejandra Vu, PhD, [facility] Performed By: #### D UPNL1 ####[facility] LIMSCLIA [id number] [address] OF [facility] Flexible sigmoidoscopy study on 07-22-2024 A30 Gastrointestinal Endoscopy Patient Name: Brian Oneal Procedure Date: 07/22/2024 2:05 PM Date of : 1950 Admit Type: Ambulatory Age: 74 Gender: Male Note Status: Finalized Attending MD: Micha Avina MD, [id number] Procedure: Flexible Sigmoidoscopy Indications: Rectal cancer Providers: [...] Note Initiated On: 07/22/2024 2:05 PM PROVATION [facility] Radiology Study observation (narrative) [facility] UA DIP, URINE (POC)on 2023 BILIRUBIN UA (POCT) Negative Negative [facility] CLARITY UA (POCT) Clear [facility] COLOR UA (POCT) Yellow [facility] GLUCOSE UA (POCT) Negative Negative mg/dL [facility] Hemoglobin Ql (U) Negative Negative [facility] KETONE UA (POCT) Negative Negative mg/dL [facility] LEUKOCYTES UA (POCT) Negative Negative [facility] NITRITE UA (POCT) Negative Negative [facility] PH UA (POCT) 6.5 4.5 - 8.0 [facility] Protein Ql (U) Negative Negative mg/dL [facility] SPECIFIC GRAVITY UA (POCT) 1.015 1.005 - 1.030 [facility] UROBILINOGEN UA (POCT) 0.2 Normal E.U./dL [facility] Location:[facility] amanda, [address] [place] [address], [address] [place] [address] POINT OF CARE [facility] CBC panel Auto (Bld)on 07-03 Erythrocyte distribution width (RBC) [Ratio] 15.7 % High 11.5-15.0 [facility] Comment on above: Order Comment: Speci men Type: BLOOD SPECIMENOrdering Facility: [facility] Address: [address] [place] [address] Performed By: #### 5 8410-2 ####[facility] LABCLIA [id number] [place] [address] [place] Hematocrit (Bld) [Volume fraction] 31.6 % Low 39.0-51.0 [facility] Comment on above: Order Comment: Speci men Type: BLOOD SPECIMENOrdering Facility: [facility] Address: [address] [place] [address] Performed By: #### 5 8410-2 ####[facility] LABCLIA [id number] [place] [address] [place] Hemoglobin (Bld) [Mass/Vol] 9.4 g/dL Low 13.0-17.0 [facility] Comment on above: Order Comment: Speci men Type: BLOOD SPECIMENOrdering Facility: [facility] Address: [address] [place] [address] Performed By: #### 5 8410-2 ####[facility] LABCLIA [id number] [place] [address] [place] MCH (RBC) [Entitic mass] 28.9 pg Normal 26.0-34.0 [facility] Comment on above: Order Comment: Speci men Type: BLOOD SPECIMENOrdering Facility: [facility] Address: [address] [place] [address] Performed By: #### 5 8410-2 ####[facility] LABIA [id number] [place] [address] [place] MCHC (RBC) [Mass/Vol] 29.7 g/dL Low 30.5-36.0 [facility] Comment on above: Order Comment: Speci men Type: BLOOD SPECIMENOrdering Facility: [facility] Address: [address] [place] [address] Performed By: #### 5 8410-2 ####[facility] LABCLIA [id number] [place] [address] [place] MCV (RBC) [Entitic vol] 97.2 fL Normal 80.0-100.0 [facility] Comment on above: Order Comment: Speci men Type: BLOOD SPECIMENOrdering Facility: [facility] Address: [address] [place] [address] Performed By: #### 5 8410-2 ####[facility] LABIA [id number] [place] [address] [place] Nucleated RBC (Bld) [#/Vol] 10*3/uL Normal <0.01 [facility] Comment on above: Order Comment: Speci men Type: BLOOD SPECIMENOrdering Facility: [facility] Address: [address] [place] [address] Performed By: #### 5 8410-2 ####[facility] LABIA [id number] [place] [address] [place] Platelet mean volume (Bld) [Entitic vol] 9.5 fL Normal 9.0-12.7 [facility] Comment on above: Order Comment: Speci men Type: BLOOD SPECIMENOrdering Facility: [facility] Address: [address] [place] [address] Performed By: #### 5 8410-2 ####[facility] LABIA [id number] [place] [address] [place] Platelets (Bld) [#/Vol] 394 10*3/uL Normal 150-400 [facility] Comment on above: Order Comment: Speci men Type: BLOOD SPECIMENOrdering Facility: [facility] Address: [address] [place] [address] Performed By: #### 5 8410-2 ####[facility] LABIA [id number] [place] [address] [place] RBC (Bld) [#/Vol] 3.25 10*6/uL Low 4.20-6.00 [facility] Comment on above: Order Comment: Speci men Type: BLOOD SPECIMENOrdering Facility: [facility] Address: [address] [place] [address] Performed By: #### 5 8410-2 ####[facility] LABCLIA [id number] [address] [address] [place] WBC (Bld) [#/Vol] 8.70 10*3/uL Normal 3.70-11.00 [facility] Comment on above: Order Comment: Speci men Type: BLOOD SPECIMENOrdering Facility: [facility] Address: [address] [place] [address] Performed By: #### 5 8410-2 ####[facility] LABCLIA [id number] [place] [address] [place] CNOVon 07-03-2024 CNOV Normal [facility] metabolic 2000 panelon 07-03-2024 Albumin [Mass/Vol] 3.3 g/dL Low 3.9-4.9 [facility] Comment on above: Order Comment: Speci men Type: BLOOD SPECIMENOrdering Facility: [facility] Address: [address] [place] [address] Performed By: #### 2 4323-8 ####[facility] LABCLIA [id number] [place] [address] [place] ALP [Catalytic activity/Vol] 53 U/L Normal 38-113 [facility] Comment on above: Order Comment: Speci men Type: BLOOD SPECIMENOrdering Facility: [facility] Address: [address] [place], [place] [address] Performed By: #### 2 4323-8 ####[facility] LABCLIA [id number] [place] [id number] [place] ALT [Catalytic activity/Vol] 22 U/L Normal 10-54 [facility] Comment on above: Order Comment: Speci men Type: BLOOD SPECIMENOrdering Facility: [facility] Address: [address] [place], [place] [address] Performed By: #### 2 4323-8 ####[facility] LABCLIA [id number] [place] [address] [place] Anion gap [Moles/Vol] 10 mmol/L Normal 8-15 [facility] Comment on above: Order Comment: Speci men Type: BLOOD SPECIMENOrdering Facility: [facility] Address: [address] [place] [address] Performed By: #### 2 4323-8 ####[facility] LABCLIA [id number] [place] [address] [place] AST [Catalytic activity/Vol] 19 U/L Normal 14-40 [facility] Comment on above: Order Comment: Speci men Type: BLOOD SPECIMENOrdering Facility: [facility] Address: [address] [place] [address] Performed By: #### 2 4323-8 ####[facility] LABCLIA [id number] [place] [address] [place] Bilirubin [Mass/Vol] 0.7 mg/dL Normal 0.2-1.3 [facility] Comment on above: Order Comment: Speci men Type: BLOOD SPECIMENOrdering Facility: [facility] Address: [address] [place] [address] Performed By: #### 2 4323-8 ####[facility] LABCLIA [id number] [place] [address] [place] Calcium [Mass/Vol] 9.1 mg/dL Normal 8.5-10.2 [facility] Comment on above: Order Comment: Speci men Type: BLOOD SPECIMENOrdering Facility: [facility] Address: [address] [place] [address] Performed By: #### 2 4323-8 ####[facility] LABCLIA [id number] [place] [address] [place] Chloride [Moles/Vol] 104 mmol/L Normal 98-107 [facility] Comment on above: Order Comment: Speci men Type: BLOOD SPECIMENOrdering Facility: [facility] Address: [address] [place] [address] Performed By: #### 2 4323-8 ####[facility] LABIA [id number] [place] [address] [place] CO2 [Moles/Vol] 25 mmol/L Normal 22-30 [facility] Comment on above: Order Comment: Speci men Type: BLOOD SPECIMENOrdering Facility: [facility] Address: [address] [place] [address] Performed By: #### 2 4323-8 ####[facility] LABCLIA [id number] [place] [address] [place] Creatinine [Mass/Vol] 1.39 mg/dL High 0.73-1.22 [facility] Comment on above: Order Comment: Speci men Type: BLOOD SPECIMENOrdering Facility: [facility] Address: [address] [place] [address] Performed By: #### 2 4323-8 ####[facility] LABIA [id number] [place] [address] [place] Creatinine and Glomerular filtration rate.predicted panel (S/P/Bld) 53 mL/min/1.73m??? Low >=60 [facility] Comment on above: Order Comment: Speci men Type: BLOOD SPECIMENOrdering Facility: [facility] Address: [address] [place] [address] Result Comment: Annalisa mated Glomerular Filtration Rate [...] actual GFR. Performed By: #### 2 4323-8 ####[facility] LABCLIA [id number] [place] [address] [place] Glucose [Mass/Vol] 92 mg/dL Normal 74-99 [facility] Comment on above: Order Comment: Speci men Type: BLOOD SPECIMENOrdering Facility: [facility] Address: [address] [place] [address] Result Comment: The [place] Diabetes Association (ADA) provides guidance for cutoff [...] Standards of Medical Care in Diabetes 2016, [place] [employer] Association. Diabetes Care. 2016.39(Suppl 1). Performed By: #### 2 4323-8 ####[facility] LABCLIA [id number] [place] [address] [place] Potassium [Moles/Vol] 5.1 mmol/L Normal 3.7-5.1 [facility] Comment on above: Order Comment: Speci men Type: BLOOD SPECIMENOrdering Facility: [facility] Address: [address] [place] [address] Performed By: #### 2 4323-8 ####[facility] LABCLIA [id number] [place] [address] [place] Protein [Mass/Vol] 6.0 g/dL Low 6.3-8.0 [facility] Comment on above: Order Comment: Speci men Type: BLOOD SPECIMENOrdering Facility: [facility] Address: [address] [place] [address] Performed By: #### 2 4323-8 ####[facility] LABCLIA [id number] [place] [address] [place] Sodium [Moles/Vol] 139 mmol/L Normal 136-144 [facility] Comment on above: Order Comment: Speci men Type: BLOOD SPECIMENOrdering Facility: [facility] Address: [address] [place] [place] [address] Performed By: #### 2 4323-8 ####[facility] LABCLIA [id number] [address] [address] [place] Urea nitrogen [Mass/Vol] 22 mg/dL Normal 9-24 [facility] Comment on above: Order Comment: Speci men Type: BLOOD SPECIMENOrdering Facility: [facility] Address: [address] [place] [address] Performed By: #### 2 4323-8 ####[facility] LABCLIA [id number] [place] [id number] [place] ECG COMPLETEon 07-03-2024 ECG COMPLETE Normal [facility] XR CHEST 2V FRONTAL/LATon XR CHEST 2V FRONTAL/LAT Normal [facility] XR Chest PA and Lateralon IMPRESSION: See result. Corporate Safety Director: PSCB Transcribe Date/Time: Jul 03 2024 2:22P Dictated by : EMILY BRAVO MD This examination was interpreted and the report reviewed and electronically signed by: EMILY BRAVO MD on Jul 03 2024 2:23PM [facility] DIVISION OF RADIOLOGY * * *Final Report* [...] Unremarkable. DIVISION OF RADIOLOGY Provider, Mason moy Alderson - 07/03/2024 * * *Final Report* * [...] soft tissues: Unremarkable. IMPRESSION IMPRESSION: See result. Corporate Safety Director: PSCRiana Transcribe Date/Time: Jul 03 2024 2:22P Dictated by : EMILY BRAVO MD This examination was interpreted and the report reviewed and electronically signed by: EMILY BRAVO MD on Jul 03 2024 2:23PM EST [facility] Radiology Study observation (narrative) [facility] XR Chest PA and LateralOrder ed By: [facility] Provider on 07-03-2024 [facility] ALLIED HEALTHon 06-26-2024 ALLIED HEALTH Normal [facility] CASE MANAGEMon 06-26-2024 CASE MANAGEM Normal [facility] CBC panel Auto (Bld)on 06-26 Erythrocyte distribution width (RBC) [Ratio] 15.9 % High 11.5-15.0 [facility] Comment on above: Order Comment: Speci men Type: BLOOD SPECIMENOrdering Facility: [facility] [place] Address: [address] [place] [address] Performed By: #### 5 8410-2 ####[facility] LABCLIA [id number] [place] [address] [place] Hematocrit (Bld) [Volume fraction] 28.7 % Low 39.0-51.0 [facility] Comment on above: Order Comment: Speci men Type: BLOOD SPECIMENOrdering Facility: [facility] Address: [address] [place] [address] Performed By: #### 5 8410-2 ####[facility] LABIA [id number] [place] [address] [place] Hemoglobin (Bld) [Mass/Vol] 9.0 g/dL Low 13.0-17.0 [facility] Comment on above: Order Comment: Speci men Type: BLOOD SPECIMENOrdering Facility: [facility] Address: [address] [place] [address] Performed By: #### 5 8410-2 ####[facility] [id number] [place] [address] [place] MCH (RBC) [Entitic mass] 29.9 pg Normal 26.0-34.0 [facility] Comment on above: Order Comment: Speci men Type: BLOOD SPECIMENOrdering Facility: [facility] Address: [address] [place] [address] Performed By: #### 5 8410-2 ####[facility] LABIA [id number] [place] [address] [place] MCHC (RBC) [Mass/Vol] 31.4 g/dL Normal 30.5-36.0 [facility] Comment on above: Order Comment: Speci men Type: BLOOD SPECIMENOrdering Facility: [facility] Address: [address] [place] [address] Performed By: #### 5 8410-2 ####[facility] LABIA [id number] [place] [address] [place] MCV (RBC) [Entitic vol] 95.3 fL Normal 80.0-100.0 [facility] Comment on above: Order Comment: Speci men Type: BLOOD SPECIMENOrdering Facility: [facility] Address: [address] [place] [address] Performed By: #### 5 8410-2 ####[facility] LABCLIA [id number] [place] [address] [place] Nucleated RBC (Bld) [#/Vol] 0.03 10*3/uL High <0.01 [facility] Comment on above: Order Comment: Speci men Type: BLOOD SPECIMENOrdering Facility: [facility] Address: [address] [place] [address] Performed By: #### 5 8410-2 ####[facility] LABCLIA [id number] [place] [address] [place] Platelet mean volume (Bld) [Entitic vol] 10.5 fL Normal 9.0-12.7 [facility] Comment on above: Order Comment: Speci men Type: BLOOD SPECIMENOrdering Facility: [facility] Address: [address] [place] [address] Performed By: #### 5 8410-2 ####[facility] LABCLIA [id number] [place] [address] [place] Platelets (Bld) [#/Vol] 233 10*3/uL Normal 150-400 [facility] Comment on above: Order Comment: Speci men Type: BLOOD SPECIMENOrdering Facility: [facility] Address: [address] [place] [address] Performed By: #### 5 8410-2 ####[facility] LABCLIA [id number] [place] [address] [place] RBC (Bld) [#/Vol] 3.01 10*6/uL Low 4.20-6.00 [facility] Comment on above: Order Comment: Speci men Type: BLOOD SPECIMENOrdering Facility: [facility] Address: [address] [place] [address] Performed By: #### 5 8410-2 ####[facility] LABCLIA [id number] [place] [address] [place] WBC (Bld) [#/Vol] 10.90 10*3/uL Normal 3.70-11.00 [facility] Comment on above: Order Comment: Speci men Type: BLOOD SPECIMENOrdering Facility: [facility] Address: [address] [place] [address] Performed By: #### 5 8410-2 ####[facility] LABIA [id number] [place] [address] [place] Comprehensive metabolic 2000 panelon 06-26-2024 Albumin [Mass/Vol] 3.0 g/dL Low 3.9-4.9 [facility] Comment on above: Order Comment: Speci men Type: BLOOD SPECIMENOrdering Facility: [facility] Address: [address] [place] [address] Performed By: #### 2 4323-8 ####[facility] LABIA [id number] [place] [address] [place] ALP [Catalytic activity/Vol] 45 U/L Normal 38-113 [facility] Comment on above: Order Comment: Speci men Type: BLOOD SPECIMENOrdering Facility: [facility] Address: [address] [place] [address] Performed By: #### 2 4323-8 ####[facility] LABIA [id number] [place] [address] [place] ALT [Catalytic activity/Vol] 25 U/L Normal 10-54 [facility] Comment on above: Order Comment: Speci men Type: BLOOD SPECIMENOrdering Facility: [facility] Address: [address] [place] [address] Performed By: #### 2 4323-8 ####[facility] LABIA [id number] [place] [id number] [place] Anion gap [Moles/Vol] 10 mmol/L Normal 8-15 [facility] Comment on above: Order Comment: Speci men Type: BLOOD SPECIMENOrdering Facility: [facility] Address: [address] [place] [address] Performed By: #### 2 4323-8 ####[facility] LABCLIA [id number] [place] [address] [place] AST [Catalytic activity/Vol] 28 U/L Normal 14-40 [facility] Comment on above: Order Comment: Speci men Type: BLOOD SPECIMENOrdering Facility: [facility] Address: [address] [place] [address] Performed By: #### 2 4323-8 ####[facility] LABIA [id number] [place] [address] [place] Bilirubin [Mass/Vol] 0.8 mg/dL Normal 0.2-1.3 [facility] Comment on above: Order Comment: Speci men Type: BLOOD SPECIMENOrdering Facility: [facility] Address: [address] [place] [address] Performed By: #### 2 4323-8 ####[facility] LABIA [id number] [place] [address] [place] Calcium [Mass/Vol] 8.4 mg/dL Low 8.5-10.2 [facility] Comment on above: Order Comment: Speci men Type: BLOOD SPECIMENOrdering Facility: [facility] Address: [address] [place] [address] Performed By: #### 2 4323-8 ####[facility] LABIA [id number] [place] [address] [place] Chloride [Moles/Vol] 101 mmol/L Normal 98-107 [facility] Comment on above: Order Comment: Speci men Type: BLOOD SPECIMENOrdering Facility: [facility] Address: [address] [place] [address] Performed By: #### 2 4323-8 ####[facility] LABCLIA [id number] [place] [address] [place] CO2 [Moles/Vol] 28 mmol/L Normal 22-30 [facility] Comment on above: Order Comment: Speci men Type: BLOOD SPECIMENOrdering Facility: [facility] Address: [address] [place] [address] Performed By: #### 2 4323-8 ####[facility] LABCLIA [id number] [place] [address] [place] Creatinine [Mass/Vol] 1.46 mg/dL High 0.73-1.22 [facility] Comment on above: Order Comment: Speci men Type: BLOOD SPECIMENOrdering Facility: [facility] Address: [address] [place] [address] Performed By: #### 2 4323-8 ####[facility] LABIA [id number] [place] [address] [place] Creatinine and Glomerular filtration rate.predicted panel (S/P/Bld) 50 mL/min/1.73m??? Low >=60 [facility] Comment on above: Order Comment: Speci men Type: BLOOD SPECIMENOrdering Facility: [facility] Address: [address] [place] [address] Result Comment: Annalisa mated Glomerular Filtration Rate [...] actual GFR. Performed By: #### 2 4323-8 ####[facility] LABIA [id number] [place] [address] [place] Glucose [Mass/Vol] 107 mg/dL High 74-99 [facility] Comment on above: Order Comment: Speci men Type: BLOOD SPECIMENOrdering Facility: [facility] Address: [address] [place] [address] Result Comment: The [place] [employer] (ADA) provides guidance for cutoff [...] Standards of Medical Care in Diabetes 2016, [place] [employer]. Diabetes Care. 2016.39(Suppl 1). Performed By: #### 2 4323-8 ####[facility] LABCLIA [id number] [place] [address] [place] Potassium [Moles/Vol] 4.2 mmol/L Normal 3.7-5.1 [facility] Comment on above: Order Comment: Speci men Type: BLOOD SPECIMENOrdering Facility: [facility] Address: [address] [place] [address] Performed By: #### 2 4323-8 ####[facility] LABCLIA [id number] [place] [address] [place] Protein [Mass/Vol] 5.3 g/dL Low 6.3-8.0 [facility] Comment on above: Order Comment: Speci men Type: BLOOD SPECIMENOrdering Facility: [facility] Address: [address] [place] [address] Performed By: #### 2 4323-8 ####[facility] LABCLIA [id number] [place] [address] [place] Sodium [Moles/Vol] 139 mmol/L Normal 136-144 [facility] Comment on above: Order Comment: Speci men Type: BLOOD SPECIMENOrdering Facility: [facility] Address: [address] [place] [address] Performed By: #### 2 4323-8 ####[facility] LABCLIA [id number] [place] [address] [place] Urea nitrogen [Mass/Vol] 25 mg/dL High 9-24 [facility] Comment on above: Order Comment: Speci men Type: BLOOD SPECIMENOrdering Facility: [facility] Address: [address] [place] [address] Performed By: #### 2 4323-8 ####[facility] LABCLIA [id number] [place] [address] [place] XR ABDOMEN 1V SUPINEon 06-26 XR ABDOMEN 1V SUPINE Normal [facility] ALLIED HEALTHon 06-25-2024 ALLIED HEALTH Normal [facility] CASE MANAGEMon 06-25-2024 CASE MANAGEM Normal [facility] CBC panel Auto (Bld)on 06-25 Erythrocyte distribution width (RBC) [Ratio] 15.7 % High 11.5-15.0 [facility] Comment on above: Order Comment: Speci men Type: BLOOD SPECIMENOrdering Facility: [facility] Address: [address] [place] [address] Performed By: #### 5 8410-2 ####[facility] LABIA [id number] [place] [id number] [place] Hematocrit (Bld) [Volume fraction] 29.0 % Low 39.0-51.0 [facility] Comment on above: Order Comment: Speci men Type: BLOOD SPECIMENOrdering Facility: [facility] Address: [address] [place] [address] Performed By: #### 5 8410-2 ####[facility] LABCLIA [id number] [place] [id number] [place] Hemoglobin (Bld) [Mass/Vol] 9.1 g/dL Low 13.0-17.0 [facility] Comment on above: Order Comment: Speci men Type: BLOOD SPECIMENOrdering Facility: [facility] Address: [address] [place] [address] Performed By: #### 5 8410-2 ####[facility] [id number] [place] [address] [place] MCH (RBC) [Entitic mass] 29.5 pg Normal 26.0-34.0 [facility] Comment on above: Order Comment: Speci men Type: BLOOD SPECIMENOrdering Facility: [facility] Address: [address] [place] [address] Performed By: #### 5 8410-2 ####[facility] [id number] [place] [address] [place] MCHC (RBC) [Mass/Vol] 31.4 g/dL Normal 30.5-36.0 [facility] Comment on above: Order Comment: Speci men Type: BLOOD SPECIMENOrdering Facility: [facility] Address: [address] [place] [address] Performed By: #### 5 8410-2 ####[facility] [id number] [place] [address] [place] MCV (RBC) [Entitic vol] 94.2 fL Normal 80.0-100.0 [facility] Comment on above: Order Comment: Speci men Type: BLOOD SPECIMENOrdering Facility: [facility] Address: [address] [place] [address] Performed By: #### 5 8410-2 ####[facility] [id number] [place] [address] [place] Nucleated RBC (Bld) [#/Vol] 0.04 10*3/uL High <0.01 [facility] Comment on above: Order Comment: Speci men Type: BLOOD SPECIMENOrdering Facility: [facility] Address: [address] [place] [address] Performed By: #### 5 8410-2 ####[facility] LABCLIA [id number] [address] [address] [place] Platelet mean volume (Bld) [Entitic vol] 10.5 fL Normal 9.0-12.7 [facility] Comment on above: Order Comment: Speci men Type: BLOOD SPECIMENOrdering Facility: [facility] Address: [address] [place] [address] Performed By: #### 5 8410-2 ####[facility] LABCLIA [id number] [place] [address] [place] Platelets (Bld) [#/Vol] 202 10*3/uL Normal 150-400 [facility] Comment on above: Order Comment: Speci men Type: BLOOD SPECIMENOrdering Facility: [facility] Address: [address] [place] [address] Performed By: #### 5 8410-2 ####[facility] LABCLIA [id number] [place] [address] [place] RBC (Bld) [#/Vol] 3.08 10*6/uL Low 4.20-6.00 [facility] Comment on above: Order Comment: Speci men Type: BLOOD SPECIMENOrdering Facility: [facility] Address: [address] [place] [address] Performed By: #### 5 8410-2 ####[facility] LABIA [id number] [place] [address] [place] WBC (Bld) [#/Vol] 10.82 10*3/uL Normal 3.70-11.00 [facility] Comment on above: Order Comment: Speci men Type: BLOOD SPECIMENOrdering Facility: [facility] Address: [address] [place] [address] Performed By: #### 5 8410-2 ####[facility] LABIA [id number] [place] [address] [place] Comprehensive metabolic 2000 panelon 06-25-2024 Albumin [Mass/Vol] 3.1 g/dL Low 3.9-4.9 [facility] Comment on above: Order Comment: Speci men Type: BLOOD SPECIMENOrdering Facility: [facility] Address: [address] [place] [address] Performed By: #### 2 4323-8 ####[facility] LABCLIA [id number] [place] [address] [place] ALP [Catalytic activity/Vol] 46 U/L Normal 38-113 [facility] Comment on above: Order Comment: Speci men Type: BLOOD SPECIMENOrdering Facility: [facility] Address: [address] [place] [address] Performed By: #### 2 4323-8 ####[facility] LABCLIA [id number] [place] [address] [place] ALT [Catalytic activity/Vol] 22 U/L Normal 10-54 [facility] Comment on above: Order Comment: Speci men Type: BLOOD SPECIMENOrdering Facility: [facility] Address: [address] [place] [address] Performed By: #### 2 4323-8 ####[facility] LABCLIA [id number] [place] [address] [place] Anion gap [Moles/Vol] 10 mmol/L Normal 8-15 [facility] Comment on above: Order Comment: Speci men Type: BLOOD SPECIMENOrdering Facility: [facility] Address: [address] [place] [address] Performed By: #### 2 4323-8 ####[facility] LABCLIA [id number] [place] [address] [place] AST [Catalytic activity/Vol] 31 U/L Normal 14-40 [facility] Comment on above: Order Comment: Speci men Type: BLOOD SPECIMENOrdering Facility: [facility] Address: [address] [place] [id number] Performed By: #### 2 4323-8 ####[facility] LABCLIA [id number] [place] [address] [place] Bilirubin [Mass/Vol] 0.8 mg/dL Normal 0.2-1.3 [facility] Comment on above: Order Comment: Speci men Type: BLOOD SPECIMENOrdering Facility: [facility] Address: [address] [place], [place] [address] Performed By: #### 2 4323-8 ####[facility] LABCLIA [id number] [place] [address] [place] Calcium [Mass/Vol] 8.7 mg/dL Normal 8.5-10.2 [facility] Comment on above: Order Comment: Speci men Type: BLOOD SPECIMENOrdering Facility: [facility] Address: [address] [place] [address] Performed By: #### 2 4323-8 ####[facility] LABCLIA [id number] [place] [address] [place] Chloride [Moles/Vol] 100 mmol/L Normal 98-107 [facility] Comment on above: Order Comment: Speci men Type: BLOOD SPECIMENOrdering Facility: [facility] Address: [address] [place], [place] [address] Performed By: #### 2 4323-8 ####[facility] LABCLIA [id number] [place] [id number] [place] CO2 [Moles/Vol] 28 mmol/L Normal 22-30 [facility] Comment on above: Order Comment: Speci men Type: BLOOD SPECIMENOrdering Facility: [facility] Address: [address] [place], [place] [address] Performed By: #### 2 4323-8 ####[facility] LABCLIA [id number] [place] [address] [place] Creatinine [Mass/Vol] 1.47 mg/dL High 0.73-1.22 [facility] Comment on above: Order Comment: Bobby villalpando Type: BLOOD SPECIMENOrdering Facility: [facility] Address: [address] [place] [address] Performed By: #### 2 4323-8 ####[facility] LABCLIA [id number] [place] [address] [place] Creatinine and Glomerular filtration rate.predicted panel (S/P/Bld) 49 mL/min/1.73m??? Low >=60 [facility] Comment on above: Order Comment: Bobby villalpando Type: BLOOD SPECIMENOrdering Facility: [facility] Address: [address] [place] [address] Result Comment: Annalisa mated Glomerular Filtration Rate [...] actual GFR. Performed By: #### 2 4323-8 ####[facility] LABCLIA [id number] [place] [address] [place] Glucose [Mass/Vol] 161 mg/dL High 74-99 [facility] Comment on above: Order Comment: Bobby villalpando Type: BLOOD SPECIMENOrdering Facility: [facility] Address: [address] [place] [address] Result Comment: The [place] [employer] (ADA) provides guidance for cutoff [...] Standards of Medical Care in Diabetes 2016, [place] [employer]. Diabetes Care. 2016.39(Suppl 1). Performed By: #### 2 4323-8 ####[facility] LABCLIA [id number] [place] [address] [place] Potassium [Moles/Vol] 3.8 mmol/L Normal 3.7-5.1 [facility] Comment on above: Order Comment: Speci men Type: BLOOD SPECIMENOrdering Facility: [facility] Address: [address] [place] [address] Performed By: #### 2 4323-8 ####[facility] LABCLIA [id number] [place] [address] [place] Protein [Mass/Vol] 5.5 g/dL Low 6.3-8.0 [facility] Comment on above: Order Comment: Speci men Type: BLOOD SPECIMENOrdering Facility: [facility] Address: [address] [place] [address] Performed By: #### 2 4323-8 ####[facility] LABCLIA [id number] [place] [address] [place] Sodium [Moles/Vol] 138 mmol/L Normal 136-144 [facility] Comment on above: Order Comment: Speci men Type: BLOOD SPECIMENOrdering Facility: [facility] Address: [address] [place] [address] Performed By: #### 2 4323-8 ####[facility] LABCLIA [id number] [place] [id number] [place] Urea nitrogen [Mass/Vol] 30 mg/dL High 9-24 [facility] Comment on above: Order Comment: Speci men Type: BLOOD SPECIMENOrdering Facility: [facility] Address: [address] [place] [address] Performed By: #### 2 4323-8 ####[facility] LABCLIA [id number] [place] [address] [place] THERAPY NTon 06-25-2024 THERAPY NT Normal [facility] ALLIED HEALTHon 06-24-2024 ALLIED HEALTH Normal [facility] CBC panel Auto (Bld)on 06-24 Erythrocyte distribution width (RBC) [Ratio] 15.5 % High 11.5-15.0 [facility] Comment on above: Order Comment: Speci men Type: BLOOD SPECIMENOrdering Facility: [facility] Address: [address] [place] [address] Performed By: #### 5 8410-2 ####[facility] [id number] [place] [address] [place] Hematocrit (Bld) [Volume fraction] 27.0 % Low 39.0-51.0 [facility] Comment on above: Order Comment: Speci men Type: BLOOD SPECIMENOrdering Facility: [facility] Address: [address] [place] [address] Performed By: #### 5 8410-2 ####[facility] LABIA [id number] [place] [address] [place] Hemoglobin (Bld) [Mass/Vol] 8.5 g/dL Low 13.0-17.0 [facility] Comment on above: Order Comment: Speci men Type: BLOOD SPECIMENOrdering Facility: [facility] Address: [address] [place] [address] Performed By: #### 5 8410-2 ####[facility] LABIA [id number] [place] [address] [place] MCH (RBC) [Entitic mass] 29.9 pg Normal 26.0-34.0 [facility] Comment on above: Order Comment: Speci men Type: BLOOD SPECIMENOrdering Facility: [facility] Address: [address] [place] [address] Performed By: #### 5 8410-2 ####[facility] LABCLIA [id number] [place] [address] [place] MCHC (RBC) [Mass/Vol] 31.5 g/dL Normal 30.5-36.0 [facility] Comment on above: Order Comment: Speci men Type: BLOOD SPECIMENOrdering Facility: [facility] Address: [address] [place] [address] Performed By: #### 5 8410-2 ####[facility] [id number] [place] [address] [place] MCV (RBC) [Entitic vol] 95.1 fL Normal 80.0-100.0 [facility] Comment on above: Order Comment: Speci men Type: BLOOD SPECIMENOrdering Facility: [facility] Address: [address] [place] [address] Performed By: #### 5 8410-2 ####[facility] [id number] [place] [address] [place] Nucleated RBC (Bld) [#/Vol] 0.08 10*3/uL High <0.01 [facility] Comment on above: Order Comment: Speci men Type: BLOOD SPECIMENOrdering Facility: [facility] Address: [address] [place] [address] Performed By: #### 5 8410-2 ####[facility] [id number] [place] [address] [place] Platelet mean volume (Bld) [Entitic vol] 11.2 fL Normal 9.0-12.7 [facility] Comment on above: Order Comment: Speci men Type: BLOOD SPECIMENOrdering Facility: [facility] Address: [address] [place] [address] Performed By: #### 5 8410-2 ####[facility] [id number] [place] [address] [place] Platelets (Bld) [#/Vol] 163 10*3/uL Normal 150-400 [facility] Comment on above: Order Comment: Speci men Type: BLOOD SPECIMENOrdering Facility: [facility] Address: [address] [place] [address] Performed By: #### 5 8410-2 ####[facility] LABCLIA [id number] [address] [address] [place] RBC (Bld) [#/Vol] 2.84 10*6/uL Low 4.20-6.00 [facility] Comment on above: Order Comment: Speci men Type: BLOOD SPECIMENOrdering Facility: [facility] Address: [address] [place] [address] Performed By: #### 5 8410-2 ####[facility] LABCLIA [id number] [place] [address] [place] WBC (Bld) [#/Vol] 9.83 10*3/uL Normal 3.70-11.00 [facility] Comment on above: Order Comment: Speci men Type: BLOOD SPECIMENOrdering Facility: [facility] Address: [address] [place] [address] Performed By: #### 5 8410-2 ####[facility] LABCLIA [id number] [place] [address] [place] Comprehensive metabolic 2000 panelon 06-24-2024 Albumin [Mass/Vol] 2.9 g/dL Low 3.9-4.9 [facility] Comment on above: Order Comment: Speci men Type: BLOOD SPECIMENOrdering Facility: [facility] Address: [address] [place] [address] Performed By: #### 2 4323-8 ####[facility] LABCLIA [id number] [place] [address] [place] ALP [Catalytic activity/Vol] 43 U/L Normal 38-113 [facility] Comment on above: Order Comment: Speci men Type: BLOOD SPECIMENOrdering Facility: [facility] Address: [address] [id number] Performed By: #### 2 4323-8 ####[facility] LABCLIA [id number] [place] [address] [place] ALT [Catalytic activity/Vol] 16 U/L Normal 10-54 [facility] Comment on above: Order Comment: Speci men Type: BLOOD SPECIMENOrdering Facility: [facility] Address: [address] [place] [address] Performed By: #### 2 4323-8 ####[facility] LABCLIA [id number] [place] [address] [place] Anion gap [Moles/Vol] 10 mmol/L Normal 8-15 [facility] Comment on above: Order Comment: Speci men Type: BLOOD SPECIMENOrdering Facility: [facility] Address: [address] [place] [address] Performed By: #### 2 4323-8 ####[facility] LABCLIA [id number] [place] [address] [place] AST [Catalytic activity/Vol] 25 U/L Normal 14-40 [facility] Comment on above: Order Comment: Speci men Type: BLOOD SPECIMENOrdering Facility: [facility] Address: [address] [place], [place] [address] Performed By: #### 2 4323-8 ####[facility] LABCLIA [id number] [place] [address] [place] Bilirubin [Mass/Vol] 0.7 mg/dL Normal 0.2-1.3 [facility] Comment on above: Order Comment: Speci men Type: BLOOD SPECIMENOrdering Facility: [facility] Address: [address] [place], [place] [address] Performed By: #### 2 4323-8 ####[facility] LABCLIA [id number] [place] [address] [place] Calcium [Mass/Vol] 8.9 mg/dL Normal 8.5-10.2 [facility] Comment on above: Order Comment: Speci men Type: BLOOD SPECIMENOrdering Facility: [facility] Address: [address] [place] [address] Performed By: #### 2 4323-8 ####[facility] LABCLIA [id number] [place] [address] [place] Chloride [Moles/Vol] 98 mmol/L Normal 98-107 [facility] Comment on above: Order Comment: Speci men Type: BLOOD SPECIMENOrdering Facility: [facility] Address: [address] [place] [address] Performed By: #### 2 4323-8 ####[facility] LABCLIA [id number] [place] [address] [place] CO2 [Moles/Vol] 28 mmol/L Normal 22-30 [facility] Comment on above: Order Comment: Speci men Type: BLOOD SPECIMENOrdering Facility: [facility] Address: [address] [place] [address] Performed By: #### 2 4323-8 ####[facility] LABCLIA [id number] [place] [address] [place] Creatinine [Mass/Vol] 1.74 mg/dL High 0.73-1.22 [facility] Comment on above: Order Comment: Speci men Type: BLOOD SPECIMENOrdering Facility: [facility] Address: [address] [place] [address] Performed By: #### 2 4323-8 ####[facility] LABCLIA [id number] [place] [address] [place] Creatinine and Glomerular filtration rate.predicted panel (S/P/Bld) 40 mL/min/1.73m??? Low >=60 [facility] Comment on above: Order Comment: Speci men Type: BLOOD SPECIMENOrdering Facility: [facility] Address: [address] [place] [address] Result Comment: Annalisa mated Glomerular Filtration Rate [...] actual GFR. Performed By: #### 2 4323-8 ####[facility] LABCLIA [id number] [place] [address] [place] Glucose [Mass/Vol] 104 mg/dL High 74-99 [facility] Comment on above: Order Comment: Speci men Type: BLOOD SPECIMENOrdering Facility: [facility] Address: [address] [place] [address] Result Comment: The [place] [employer] (ADA) provides guidance for cutoff [...] Standards of Medical Care in Diabetes 2016, [place] [employer]. Diabetes Care. 2016.39(Suppl 1). Performed By: #### 2 4323-8 ####[facility] LABCLIA [id number] [place] [id number] [place] Potassium [Moles/Vol] 4.3 mmol/L Normal 3.7-5.1 [facility] Comment on above: Order Comment: Speci men Type: BLOOD SPECIMENOrdering Facility: [facility] Address: [address] [place] [address] Performed By: #### 2 4323-8 ####[facility] LABCLIA [id number] [place] [address] [place] Protein [Mass/Vol] 5.4 g/dL Low 6.3-8.0 [facility] Comment on above: Order Comment: Speci men Type: BLOOD SPECIMENOrdering Facility: [facility] Address: [address] [place] [address] Performed By: #### 2 4323-8 ####[facility] LABCLIA [id number] [place] [address] [place] Sodium [Moles/Vol] 136 mmol/L Normal 136-144 [facility] Comment on above: Order Comment: Speci men Type: BLOOD SPECIMENOrdering Facility: [facility] Address: [address] [place] [address] Performed By: #### 2 4323-8 ####[facility] LABCLIA [id number] [place] [address] [place] Urea nitrogen [Mass/Vol] 34 mg/dL High 9-24 [facility] Comment on above: Order Comment: Speci men Type: BLOOD SPECIMENOrdering Facility: [facility] Address: [address] [place] [address] Performed By: #### 2 4323-8 ####[facility] LABCLIA [id number] [place] [address] [place] THERAPY NTon 06-24-2024 THERAPY NT Normal [facility] THERAPY NT Normal [facility] XR CHEST 2V FRONTAL/LATon XR CHEST 2V FRONTAL/LAT Normal [facility] CASE MANAGEMon 06-23-2024 CASE MANAGEM Normal [facility] CBC panel Auto (Bld)on 06-23 Erythrocyte distribution width (RBC) [Ratio] 14.3 % Normal 11.5-15.0 [facility] Comment on above: Order Comment: Speci men Type: BLOOD SPECIMENOrdering Facility: [facility] Address: [address] [place] [address] Performed By: #### 5 8410-2 ####[facility] LABCLIA [id number] [place] [address] [place] Hematocrit (Bld) [Volume fraction] 22.3 % Low 39.0-51.0 [facility] Comment on above: Order Comment: Speci men Type: BLOOD SPECIMENOrdering Facility: [facility] Address: [address] [place] [address] Performed By: #### 5 8410-2 ####[facility] LABIA [id number] [place] [address] [place] Hemoglobin (Bld) [Mass/Vol] 7.2 g/dL Low 13.0-17.0 [facility] Comment on above: Order Comment: Speci men Type: BLOOD SPECIMENOrdering Facility: [facility] Address: [address] [place] [address] Performed By: #### 5 8410-2 ####[facility] LABIA [id number] [place] [address] [place] MCH (RBC) [Entitic mass] 30.5 pg Normal 26.0-34.0 [facility] Comment on above: Order Comment: Speci men Type: BLOOD SPECIMENOrdering Facility: [facility] Address: [address] [place] [address] Performed By: #### 5 8410-2 ####[facility] LABIA [id number] [place] [address] [place] MCHC (RBC) [Mass/Vol] 32.3 g/dL Normal 30.5-36.0 [facility] Comment on above: Order Comment: Speci men Type: BLOOD SPECIMENOrdering Facility: [facility] Address: [address] [place] [address] Performed By: #### 5 8410-2 ####[facility] LABIA [id number] [place] [address] [place] MCV (RBC) [Entitic vol] 94.5 fL Normal 80.0-100.0 [facility] Comment on above: Order Comment: Speci men Type: BLOOD SPECIMENOrdering Facility: [facility] Address: [address] [place] [address] Performed By: #### 5 8410-2 ####[facility] LABCLIA [id number] [place] [address] [place] Nucleated RBC (Bld) [#/Vol] 0.04 10*3/uL High <0.01 [facility] Comment on above: Order Comment: Speci men Type: BLOOD SPECIMENOrdering Facility: [facility] Address: [address] [place] [address] Performed By: #### 5 8410-2 ####[facility] LABCLIA [id number] [place] [address] [place] Platelet mean volume (Bld) [Entitic vol] 11.1 fL Normal 9.0-12.7 [facility] Comment on above: Order Comment: Speci men Type: BLOOD SPECIMENOrdering Facility: [facility] Address: [address] [place] [address] Performed By: #### 5 8410-2 ####[facility] LABCLIA [id number] [place] [address] [place] Platelets (Bld) [#/Vol] 145 10*3/uL Low 150-400 [facility] Comment on above: Order Comment: Speci men Type: BLOOD SPECIMENOrdering Facility: [facility] Address: [address] [place] [address] Performed By: #### 5 8410-2 ####[facility] LABCLIA [id number] [place] [address] [place] RBC (Bld) [#/Vol] 2.36 10*6/uL Low 4.20-6.00 [facility] Comment on above: Order Comment: Speci men Type: BLOOD SPECIMENOrdering Facility: [facility] Address: [address] [place] [address] Performed By: #### 5 8410-2 ####[facility] LABCLIA [id number] [address] [address] [place] WBC (Bld) [#/Vol] 9.72 10*3/uL Normal 3.70-11.00 [facility] Comment on above: Order Comment: Speci men Type: BLOOD SPECIMENOrdering Facility: [facility] Address: [address] [place] [address] Performed By: #### 5 8410-2 ####[facility] LABCLIA [id number] [place] [address] [place] Comprehensive metabolic 2000 panelon 06-23-2024 Albumin [Mass/Vol] 2.8 g/dL Low 3.9-4.9 [facility] Comment on above: Order Comment: Speci men Type: BLOOD SPECIMENOrdering Facility: [facility] Address: [address] [place], [place] [address] Performed By: #### 2 4323-8 ####[facility] LABCLIA [id number] [place] [id number] [place] ALP [Catalytic activity/Vol] 44 U/L Normal 38-113 [facility] Comment on above: Order Comment: Speci men Type: BLOOD SPECIMENOrdering Facility: [facility] Address: [address] [place] [address] Performed By: #### 2 4323-8 ####[facility] LABCLIA [id number] [place] [id number] [place] ALT [Catalytic activity/Vol] 15 U/L Normal 10-54 [facility] Comment on above: Order Comment: Speci men Type: BLOOD SPECIMENOrdering Facility: [facility] Address: [address] [place] [address] Performed By: #### 2 4323-8 ####[facility] LABCLIA [id number] [place] [address] [place] Anion gap [Moles/Vol] 8 mmol/L Normal 8-15 [facility] Comment on above: Order Comment: Speci men Type: BLOOD SPECIMENOrdering Facility: [facility] Address: [address] [place] [address] Performed By: #### 2 4323-8 ####[facility] LABCLIA [id number] [place] [address] [place] AST [Catalytic activity/Vol] 20 U/L Normal 14-40 [facility] Comment on above: Order Comment: Speci men Type: BLOOD SPECIMENOrdering Facility: [facility] Address: [address] [place] [address] Performed By: #### 2 4323-8 ####[facility] LABCLIA [id number] [place] [address] [place] Bilirubin [Mass/Vol] 0.4 mg/dL Normal 0.2-1.3 [facility] Comment on above: Order Comment: Speci men Type: BLOOD SPECIMENOrdering Facility: [facility] Address: [address] [place] [address] Performed By: #### 2 4323-8 ####[facility] LABCLIA [id number] [place] [address] [place] Calcium [Mass/Vol] 8.5 mg/dL Normal 8.5-10.2 [facility] Comment on above: Order Comment: Speci men Type: BLOOD SPECIMENOrdering Facility: [facility] Address: [address] [place] [address] Performed By: #### 2 4323-8 ####[facility] LABCLIA [id number] [place] [id number] [place] Chloride [Moles/Vol] 101 mmol/L Normal 98-107 [facility] Comment on above: Order Comment: Speci men Type: BLOOD SPECIMENOrdering Facility: [facility] Address: [address] [place] [address] Performed By: #### 2 4323-8 ####[facility] LABCLIA [id number] [place] [id number] [place] CO2 [Moles/Vol] 30 mmol/L Normal 22-30 [facility] Comment on above: Order Comment: Speci men Type: BLOOD SPECIMENOrdering Facility: [facility] Address: [address] [place] [address] Performed By: #### 2 4323-8 ####[facility] LABCLIA [id number] [place] [address] [place] Creatinine [Mass/Vol] 1.76 mg/dL High 0.73-1.22 [facility] Comment on above: Order Comment: Speci men Type: BLOOD SPECIMENOrdering Facility: [facility] Address: [address] [place] [address] Performed By: #### 2 4323-8 ####[facility] LABIA [id number] [address] Creatinine and Glomerular filtration rate.predicted panel (S/P/Bld) 40 mL/min/1.73m??? Low >=60 [facility] Comment on above: Order Comment: Speci men Type: BLOOD SPECIMENOrdering Facility: [facility] Address: [address] [place] [address] Result Comment: Annalisa mated Glomerular Filtration Rate [...] actual GFR. Performed By: #### 2 4323-8 ####[facility] LABCLIA [id number] [place] [address] [place] Glucose [Mass/Vol] 100 mg/dL High 74-99 [facility] Comment on above: Order Comment: Speci men Type: BLOOD SPECIMENOrdering Facility: [facility] Address: [address] [place] [address] Result Comment: The [place] [employer] (ADA) provides guidance for cutoff [...] Standards of Medical Care in Diabetes 2016, [place] [employer]. Diabetes Care. 2016.39(Suppl 1). Performed By: #### 2 4323-8 ####[facility] LABIA [id number] [place] [address] [place] Potassium [Moles/Vol] 5.0 mmol/L Normal 3.7-5.1 [facility] Comment on above: Order Comment: Speci men Type: BLOOD SPECIMENOrdering Facility: [facility] Address: [address] [place] [address] Performed By: #### 2 4323-8 ####[facility] LABIA [id number] [place] [address] [place] Protein [Mass/Vol] 5.0 g/dL Low 6.3-8.0 [facility] Comment on above: Order Comment: Speci men Type: BLOOD SPECIMENOrdering Facility: [facility] Address: [address] [place] [address] Performed By: #### 2 4323-8 ####[facility] LABIA [id number] [address] [address] [place] Sodium [Moles/Vol] 139 mmol/L Normal 136-144 [facility] Comment on above: Order Comment: Speci men Type: BLOOD SPECIMENOrdering Facility: [facility] Address: [address] [place] [address] Performed By: #### 2 4323-8 ####[facility] LABCLIA [id number] [place] [address] [place] Urea nitrogen [Mass/Vol] 32 mg/dL High 9-24 [facility] Comment on above: Order Comment: Speci men Type: BLOOD SPECIMENOrdering Facility: [facility] Address: [address] [place] [address] Performed By: #### 2 4323-8 ####[facility] LABCLIA [id number] [place] [address] [place] NUTRITIONon 06-23-2024 NUTRITION Normal [facility] THERAPY NTon 06-23-2024 THERAPY NT Normal [facility] TYPE + SCREENon 06-23-2024 ABO A Normal [facility] Comment on above: Order Comment: Speci men Type: BLOOD SPECIMENOrdering Facility: [facility] Address: [address] [place] [address] Performed By: #### T SCR ####[facility] BLOOD BANKCLIA [id number] [place] [address] [place] HISTORICAL AB SCR STATUS Negative Normal [facility] Comment on above: Order Comment: Speci men Type: BLOOD SPECIMENOrdering Facility: [facility] Address: [address] [place], [place] [address] Performed By: #### T SCR ####[facility] BLOOD BANKCLIA [id number] [place] [id number] [place] Rh Nom (Bld) Positive Normal [facility] Comment on above: Order Comment: Speci men Type: BLOOD SPECIMENOrdering Facility: [facility] Address: [address] [place], [place] [address] Performed By: #### T SCR ####[facility] BLOOD BANKCLIA [id number] [place] [address] [place] TYPE AND SCREEN EXPIRATION 06/26/2024 23:59 Normal [facility] Comment on above: Order Comment: Speci men Type: BLOOD SPECIMENOrdering Facility: [facility] Address: [address] [place] [address] Performed By: #### T SCR ####[facility] BLOOD BANKCLIA [id number] [place] [id number] [place] XR ABDOMEN 1V SUPINEon 06-23 XR ABDOMEN 1V SUPINE [facility] ALLIED HEALTHon 06-22-2024 ALLIED HEALTH Normal [facility] CASE MANAGEMon 06-22-2024 CASE MANAGEM Normal [facility] CBC panel Auto (Bld)on 06-22 Erythrocyte distribution width (RBC) [Ratio] 14.6 % Normal 11.5-15.0 [facility] Comment on above: Order Comment: Speci men Type: BLOOD SPECIMENOrdering Facility: [facility] Address: [address] [place] [address] Performed By: #### 5 8410-2 ####[facility] LABCLIA [id number] [place] [id number] [place] Hematocrit (Bld) [Volume fraction] 25.4 % Low 39.0-51.0 [facility] Comment on above: Order Comment: Speci men Type: BLOOD SPECIMENOrdering Facility: [facility] Address: [address] [place] [address] Performed By: #### 5 8410-2 ####[facility] LABCLIA [id number] [place] [id number] [place] Hemoglobin (Bld) [Mass/Vol] 7.8 g/dL Low 13.0-17.0 [facility] Comment on above: Order Comment: Speci men Type: BLOOD SPECIMENOrdering Facility: [facility] Address: [address] [place] [address] Performed By: #### 5 8410-2 ####[facility] LABCLIA [id number] [place] [address] [place] MCH (RBC) [Entitic mass] 29.7 pg Normal 26.0-34.0 [facility] Comment on above: Order Comment: Speci men Type: BLOOD SPECIMENOrdering Facility: [facility] Address: [address] [place] [address] Performed By: #### 5 8410-2 ####[facility] LABIA [id number] [place] [address] [place] MCHC (RBC) [Mass/Vol] 30.7 g/dL Normal 30.5-36.0 [facility] Comment on above: Order Comment: Speci men Type: BLOOD SPECIMENOrdering Facility: [facility] Address: [address] [place] [address] Performed By: #### 5 8410-2 ####[facility] LABIA [id number] [place] [address] [place] MCV (RBC) [Entitic vol] 96.6 fL Normal 80.0-100.0 [facility] Comment on above: Order Comment: Speci men Type: BLOOD SPECIMENOrdering Facility: [facility] Address: [address] [place] [address] Performed By: #### 5 8410-2 ####[facility] LABCLIA [id number] [place] [address] [place] Nucleated RBC (Bld) [#/Vol] 0.02 10*3/uL High <0.01 [facility] Comment on above: Order Comment: Speci men Type: BLOOD SPECIMENOrdering Facility: [facility] Address: [address] [place] [address] Performed By: #### 5 8410-2 ####[facility] LABCLIA [id number] [address] [address] [place] Platelet mean volume (Bld) [Entitic vol] 11.0 fL Normal 9.0-12.7 [facility] Comment on above: Order Comment: Speci men Type: BLOOD SPECIMENOrdering Facility: [facility] Address: [address] [place] [address] Performed By: #### 5 8410-2 ####[facility] LABIA [id number] [place] [address] [place] Platelets (Bld) [#/Vol] 129 10*3/uL Low 150-400 [facility] Comment on above: Order Comment: Speci men Type: BLOOD SPECIMENOrdering Facility: [facility] Address: [address] [place] [address] Result Comment: Resu lts checked and verified.No clot detected. Performed By: #### 5 8410-2 ####[facility] LABIA [id number] [place] [address] [place] RBC (Bld) [#/Vol] 2.63 10*6/uL Low 4.20-6.00 [facility] Comment on above: Order Comment: Speci men Type: BLOOD SPECIMENOrdering Facility: [facility] Address: [address] [place] [address] Performed By: #### 5 8410-2 ####[facility] LABIA [id number] [place] [address] [place] WBC (Bld) [#/Vol] 10.58 10*3/uL Normal 3.70-11.00 [facility] Comment on above: Order Comment: Speci men Type: BLOOD SPECIMENOrdering Facility: [facility] Address: [address] [place] [address] Performed By: #### 5 8410-2 ####[facility] LABIA [id number] [place] [id number] [place] CNDSon 06-22-2024 CNDS Normal [facility] Comprehensive metabolic 2000 panelon 06-22-2024 Albumin [Mass/Vol] 2.9 g/dL Low 3.9-4.9 [facility] Comment on above: Order Comment: Speci men Type: BLOOD SPECIMENOrdering Facility: [facility] Address: [address] [place] [address] Performed By: #### 2 4323-8, ####[facility] LABCLIA [id number] [place] [address] [place] ALP [Catalytic activity/Vol] 46 U/L Normal 38-113 [facility] Comment on above: Order Comment: Speci men Type: BLOOD SPECIMENOrdering Facility: [facility] Address: [address] [place] [address] Performed By: #### 2 432-8, ####[facility] LABIA [id number] [place] [address] [place] ALT [Catalytic activity/Vol] 18 U/L Normal 10-54 [facility] Comment on above: Order Comment: Speci men Type: BLOOD SPECIMENOrdering Facility: [facility] Address: [address] [place] [address] Performed By: #### 2 4323-8, ####[facility] LABIA [id number] [place] [id number] [place] Anion gap [Moles/Vol] 10 mmol/L Normal 8-15 [facility] Comment on above: Order Comment: Speci men Type: BLOOD SPECIMENOrdering Facility: [facility] Address: [address] [place] [address] Performed By: #### 2 4323-8, ####[facility] LABIA [id number] [place] [id number] [place] AST [Catalytic activity/Vol] 22 U/L Normal 14-40 [facility] Comment on above: Order Comment: Speci men Type: BLOOD SPECIMENOrdering Facility: [facility] Address: [address] [place] [address] Performed By: #### 2 4323-8, ####[facility] LABCLIA [id number] [place] [address] [place] Bilirubin [Mass/Vol] 0.5 mg/dL Normal 0.2-1.3 [facility] Comment on above: Order Comment: Speci men Type: BLOOD SPECIMENOrdering Facility: [facility] Address: [address] [place] [address] Performed By: #### 2 4323-8, ####[facility] LABCLIA [id number] [place] [address] [place] Calcium [Mass/Vol] 8.3 mg/dL Low 8.5-10.2 [facility] Comment on above: Order Comment: Speci men Type: BLOOD SPECIMENOrdering Facility: [facility] Address: [address] [place] [address] Performed By: #### 2 4323-8, ####[facility] LABCLIA [id number] [place] [address] [place] Chloride [Moles/Vol] 100 mmol/L Normal 98-107 [facility] Comment on above: Order Comment: Speci men Type: BLOOD SPECIMENOrdering Facility: [facility] Address: [address] [place] [address] Performed By: #### 2 4323-8, ####[facility] LABCLIA [id number] [place] [id number] [place] CO2 [Moles/Vol] 28 mmol/L Normal 22-30 [facility] Comment on above: Order Comment: Speci men Type: BLOOD SPECIMENOrdering Facility: [facility] Address: [address] [place] [id number] Performed By: #### 2 4323-8, ####[facility] LABIA [id number] [place] [id number] [place] Creatinine [Mass/Vol] 1.73 mg/dL High 0.73-1.22 [facility] Comment on above: Order Comment: Speci men Type: BLOOD SPECIMENOrdering Facility: [facility] Address: [address] [place] [address] Performed By: #### 2 4323-8, ####[facility] LABIA [id number] [place] [address] [place] Creatinine and Glomerular filtration rate.predicted panel (S/P/Bld) 40 mL/min/1.73m??? Low >=60 [facility] Comment on above: Order Comment: Bobby villalpando Type: BLOOD SPECIMENOrdering Facility: [facility] Address: [address] [place] [address] Result Comment: Annalisa mated Glomerular Filtration Rate [...] actual GFR. Performed By: #### 2 4323-8, ####[facility] LABIA [id number] [place] [id number] [place] Glucose [Mass/Vol] 89 mg/dL Normal 74-99 [facility] Comment on above: Order Comment: Chandanai men Type: BLOOD SPECIMENOrdering Facility: [facility] Address: [address] [place] [address] Result Comment: The [place] [employer] (ADA) provides guidance for cutoff [...] Standards of Medical Care in Diabetes 2016, [place] [employer]. Diabetes Care. 2016.39(Suppl 1). Performed By: #### 2 4323-06, ####[facility] LABCLIA [id number] [place] [address] [place] Potassium [Moles/Vol] 4.0 mmol/L Normal 3.7-5.1 [facility] Comment on above: Order Comment: Chandanai kwasi Type: BLOOD SPECIMENOrdering Facility: [facility] Address: [address] [place] [address] Performed By: #### 2 4323-06, ####[facility] LABCLIA [id number] [place] [address] [place] Protein [Mass/Vol] 5.1 g/dL Low 6.3-8.0 [facility] Comment on above: Order Comment: Bobby villalpando Type: BLOOD SPECIMENOrdering Facility: [facility] Address: [address] [place] [address] Performed By: #### 2 4323-06, ####[facility] LABCLIA [id number] [facility] [address] [address] [place] Sodium [Moles/Vol] 138 mmol/L Normal 136-144 [facility] Comment on above: Order Comment: Chandanai kwasi Type: BLOOD SPECIMENOrdering Facility: [facility] Address: [address] [place] [address] Performed By: #### 2 43201-16, ####[facility] LABCLIA [id number] [place] [id number] [place] Urea nitrogen [Mass/Vol] 30 mg/dL High 9-24 [facility] Comment on above: Order Comment: Speci men Type: BLOOD SPECIMENOrdering Facility: [facility] Address: [address] [place] [address] Performed By: #### 2 4323-8, 24879-1 ####[facility] LABCLIA [id number] [place] [address] [place] ECG COMPLETEon 06-22-2024 ECG COMPLETE Normal [facility] Magnesium SerPl-mCncon 06-22 Magnesium [Mass/Vol] 2.1 mg/dL Normal 1.7-2.3 [facility] Comment on above: Order Comment: Speci men Type: BLOOD SPECIMENOrdering Facility: [facility] Address: [address] [place] [address] Performed By: #### 2 4323-8, ####[facility] LABCLIA [id number] [place] [id number] [place] PT EDon 06-22-2024 PT ED Normal [facility] THERAPY NTon 06-22-2024 THERAPY NT Normal [facility] THERAPY NT Normal [facility] THERAPY NT Normal [facility] XR CHEST 1V FRONTAL PORTon 0 06-22-2024 XR CHEST 1V FRONTAL PORT Normal [facility] CBC panel Auto (Bld)on 06-21 Erythrocyte distribution width (RBC) [Ratio] 14.9 % Normal 11.5-15.0 [facility] Comment on above: Order Comment: Speci men Type: BLOOD SPECIMENOrdering Facility: [facility] Address: [address] [place] [address] Performed By: #### 5 8410-2 ####[facility] LABCLIA [id number] [place] [id number] [place] Hematocrit (Bld) [Volume fraction] 24.8 % Low 39.0-51.0 [facility] Comment on above: Order Comment: Speci men Type: BLOOD SPECIMENOrdering Facility: [facility] Address: [address] [place] [address] Performed By: #### 5 8410-2 ####[facility] LABIA [id number] [place] [address] [place] Hemoglobin (Bld) [Mass/Vol] 8.0 g/dL Low 13.0-17.0 [facility] Comment on above: Order Comment: Speci men Type: BLOOD SPECIMENOrdering Facility: [facility] Address: [address] [place] [address] Performed By: #### 5 8410-2 ####[facility] [id number] [place] [address] [place] MCH (RBC) [Entitic mass] 30.4 pg Normal 26.0-34.0 [facility] Comment on above: Order Comment: Speci men Type: BLOOD SPECIMENOrdering Facility: [facility] Address: [address] [place] [address] Performed By: #### 5 8410-2 ####[facility] [id number] [place] [address] [place] MCHC (RBC) [Mass/Vol] 32.3 g/dL Normal 30.5-36.0 [facility] Comment on above: Order Comment: Speci men Type: BLOOD SPECIMENOrdering Facility: [facility] Address: [address] [place] [address] Performed By: #### 5 8410-2 ####[facility] [id number] [place] [address] [place] MCV (RBC) [Entitic vol] 94.3 fL Normal 80.0-100.0 [facility] Comment on above: Order Comment: Speci men Type: BLOOD SPECIMENOrdering Facility: [facility] Address: [address] [place] [address] Performed By: #### 5 8410-2 ####[facility] LABCLIA [id number] [place] [address] [place] Nucleated RBC (Bld) [#/Vol] 10*3/uL Normal <0.01 [facility] Comment on above: Order Comment: Speci men Type: BLOOD SPECIMENOrdering Facility: [facility] Address: [address] [place] [address] Performed By: #### 5 8410-2 ####[facility] LABIA [id number] [place] [address] [place] Platelet mean volume (Bld) [Entitic vol] 11.1 fL Normal 9.0-12.7 [facility] Comment on above: Order Comment: Speci men Type: BLOOD SPECIMENOrdering Facility: [facility] Address: [address] [place] [address] Performed By: #### 5 8410-2 ####[facility] LABIA [id number] [place] [address] [place] Platelets (Bld) [#/Vol] 107 10*3/uL Low 150-400 [facility] Comment on above: Order Comment: Speci men Type: BLOOD SPECIMENOrdering Facility: [facility] Address: [address] [place] [address] Performed By: #### 5 8410-2 ####[facility] LABIA [id number] [place] [address] [place] RBC (Bld) [#/Vol] 2.63 10*6/uL Low 4.20-6.00 [facility] Comment on above: Order Comment: Speci men Type: BLOOD SPECIMENOrdering Facility: [facility] Address: [address] [place] [address] Performed By: #### 5 8410-2 ####[facility] LABIA [id number] [place] [address] [place] WBC (Bld) [#/Vol] 13.59 10*3/uL High 3.70-11.00 [facility] Comment on above: Order Comment: Speci men Type: BLOOD SPECIMENOrdering Facility: [facility] Address: [address] [place] [address] Performed By: #### 5 8410-2 ####[facility] LABCLIA [id number] [place] [address] [place] Comprehensive metabolic 2000 panelon 06-21-2024 Albumin [Mass/Vol] 3.1 g/dL Low 3.9-4.9 [facility] Comment on above: Order Comment: Speci men Type: BLOOD SPECIMENOrdering Facility: [facility] Address: [address] [place] [address] Performed By: #### 2 4323-8 ####[facility] LABCLIA [id number] [place] [address] [place] ALP [Catalytic activity/Vol] 41 U/L Normal 38-113 [facility] Comment on above: Order Comment: Speci men Type: BLOOD SPECIMENOrdering Facility: [facility] Address: [address] [place] [address] Performed By: #### 2 4323-8 ####[facility] LABCLIA [id number] [place] [address] [place] ALT [Catalytic activity/Vol] 18 U/L Normal 10-54 [facility] Comment on above: Order Comment: Speci men Type: BLOOD SPECIMENOrdering Facility: [facility] Address: [address] [place] [address] Performed By: #### 2 4323-8 ####[facility] LABCLIA [id number] [place] [address] [place] Anion gap [Moles/Vol] 11 mmol/L Normal 8-15 [facility] Comment on above: Order Comment: Speci men Type: BLOOD SPECIMENOrdering Facility: [facility] Address: [address] [place] [address] Performed By: #### 2 4323-8 ####[facility] LABCLIA [id number] [place] [address] [place] AST [Catalytic activity/Vol] 26 U/L Normal 14-40 [facility] Comment on above: Order Comment: Speci men Type: BLOOD SPECIMENOrdering Facility: [facility] Address: [address] [place] [address] Performed By: #### 2 4323-8 ####[facility] LABCLIA [id number] [place] [address] [place] Bilirubin [Mass/Vol] 0.5 mg/dL Normal 0.2-1.3 [facility] Comment on above: Order Comment: Speci men Type: BLOOD SPECIMENOrdering Facility: [facility] Address: [address] [place] [address] Performed By: #### 2 4323-8 ####[facility] LABCLIA [id number] [place] [address] [place] Calcium [Mass/Vol] 8.6 mg/dL Normal 8.5-10.2 [facility] Comment on above: Order Comment: Speci men Type: BLOOD SPECIMENOrdering Facility: [facility] Address: [address] [place] [address] Performed By: #### 2 4323-8 ####[facility] LABCLIA [id number] [place] [address] [place] Chloride [Moles/Vol] 102 mmol/L Normal 98-107 [facility] Comment on above: Order Comment: Speci men Type: BLOOD SPECIMENOrdering Facility: [facility] Address: [address] [place] [address] Performed By: #### 2 4323-8 ####[facility] LABCLIA [id number] [place] [address] [place] CO2 [Moles/Vol] 25 mmol/L Normal 22-30 [facility] Comment on above: Order Comment: Speci men Type: BLOOD SPECIMENOrdering Facility: [facility] Address: [address] [place] [address] Performed By: #### 2 4323-8 ####[facility] LABCLIA [id number] [place] [address] [place] Creatinine [Mass/Vol] 1.79 mg/dL High 0.73-1.22 [facility] Comment on above: Order Comment: Speci men Type: BLOOD SPECIMENOrdering Facility: [facility] Address: [address] [place] [address] Performed By: #### 2 4323-8 ####[facility] LABIA [id number] [place] [address] [place] Creatinine and Glomerular filtration rate.predicted panel (S/P/Bld) 39 mL/min/1.73m??? Low >=60 [facility] Comment on above: Order Comment: Speci men Type: BLOOD SPECIMENOrdering Facility: [facility] Address: [address] [place] [address] Result Comment: Annalisa mated Glomerular Filtration Rate [...] actual GFR. Performed By: #### 2 4323-8 ####[facility] LABCLIA [id number] [place] [address] [place] Glucose [Mass/Vol] 115 mg/dL High 74-99 [facility] Comment on above: Order Comment: Speci men Type: BLOOD SPECIMENOrdering Facility: [facility] Address: [address] [place] [address] Result Comment: The [place] Diabetes [employer] (ADA) provides guidance for cutoff [...] Standards of Medical Care in Diabetes 2016, [place] [employer]. Diabetes Care. 2016.39(Suppl 1). Performed By: #### 2 4323-8 ####[facility] LABCLIA [id number] [place] [address] [place] Potassium [Moles/Vol] 4.5 mmol/L Normal 3.7-5.1 [facility] Comment on above: Order Comment: Speci men Type: BLOOD SPECIMENOrdering Facility: [facility] Address: [address] [place] [address] Performed By: #### 2 4323-8 ####[facility] LABIA [id number] [place] [address] [place] Protein [Mass/Vol] 4.9 g/dL Low 6.3-8.0 [facility] Comment on above: Order Comment: Speci men Type: BLOOD SPECIMENOrdering Facility: [facility] Address: [address] [place] [address] Performed By: #### 2 4323-8 ####[facility] LABCLIA [id number] [place] [address] [place] Sodium [Moles/Vol] 138 mmol/L Normal 136-144 [facility] Comment on above: Order Comment: Speci men Type: BLOOD SPECIMENOrdering Facility: [facility] Address: [address] [place] [address] Performed By: #### 2 4323-8 ####[facility] LABCLIA [id number] [place] [address] [place] Urea nitrogen [Mass/Vol] 24 mg/dL Normal 9-24 [facility] Comment on above: Order Comment: Speci men Type: BLOOD SPECIMENOrdering Facility: [facility] Address: [address] [place] [address] Performed By: #### 2 4323-8 ####[facility] LABCLIA [id number] [place] [address] [place] Gas and Carbon monoxide pane l (BldV)on 06-21-2024 Base excess Calc (BldV) [Moles/Vol] 3 mmol/L High 0-2 [facility] Comment on above: Order Comment: Speci men Type: VENOUS BLOOD SPECIMENOrdering Facility: [facility] Address: [address] [place] [address] Performed By: #### 2 4344-4 ####[facility] LABIA [id number] [address] STATES OF [facility] Body temperature 98.6 [degF] Normal [facility] Comment on above: Order Comment: Speci men Type: VENOUS BLOOD SPECIMENOrdering Facility: [facility] Address: [address] [place] [address] Performed By: #### 2 4344-4 ####[facility] LABIA [id number] [place] [address] [place] Calcium.ionized (Bld) [Mass/Vol] 1.17 mmol/L Normal 1.08-1.30 [facility] Comment on above: Order Comment: Speci men Type: VENOUS BLOOD SPECIMENOrdering Facility: [facility] Address: [address] [place] [address] Performed By: #### 2 4344-4 ####[facility] LABIA [id number] [id number] [address] [place] Calcium.ionized adjusted to pH 7.4 (BldA) [Moles/Vol] 1.15 mmol/L Normal 1.08-1.30 [facility] Comment on above: Order Comment: Speci men Type: VENOUS BLOOD SPECIMENOrdering Facility: [facility] Address: [address] [place] [address] Performed By: #### 2 4344-4 ####[facility] LABCLIA [id number] [place] [address] [place] Carboxyhemoglobin (BldV) [Mass fraction] 1.4 % Normal 0.0-2.0 [facility] Comment on above: Order Comment: Speci men Type: VENOUS BLOOD SPECIMENOrdering Facility: [facility] Address: [address] [place] [address] Result Comment: Carb oxyhemoglobin Reference Range for Smokers: 2.0-8.0% Performed By: #### 2 4344-4 ####[facility] LABIA [id number] [place] [address] [place] CO2 (BldV) [Partial pressure] 50 mm[Hg] Normal 42-55 [facility] Comment on above: Order Comment: Speci men Type: VENOUS BLOOD SPECIMENOrdering Facility: [facility] Address: [address] [place] [address] Performed By: #### 2 4344-4 ####[facility] LABCLIA [id number] [place] [address] [place] Glucose [Mass/Vol] 116 mg/dL High 60-105 [facility] Comment on above: Order Comment: Speci men Type: VENOUS BLOOD SPECIMENOrdering Facility: [facility] Address: [address] [place] [address] Performed By: #### 2 4344-4 ####[facility] LABCLIA [id number] [place] [address] [place] HCO3 (Bld) [Moles/Vol] 28 mmol/L Normal 24-28 [facility] Comment on above: Order Comment: Speci men Type: VENOUS BLOOD SPECIMENOrdering Facility: [facility] Address: [address] [place] [address] Performed By: #### 2 4344-4 ####[facility] LABCLIA [id number] [place] [address] [place] Hematocrit (Bld) [Volume fraction] 26.6 % Low 39.0-51.0 [facility] Comment on above: Order Comment: Speci men Type: VENOUS BLOOD SPECIMENOrdering Facility: [facility] Address: [address] [place] [address] Performed By: #### 2 4344-4 ####[facility] LABIA [id number] [place] [address] [place] Hemoglobin (Bld) [Mass/Vol] 8.6 g/dL Low 13.0-17.0 [facility] Comment on above: Order Comment: Speci men Type: VENOUS BLOOD SPECIMENOrdering Facility: [facility] Address: [address] [place] [address] Performed By: #### 2 4344-4 ####[facility] LABIA [id number] [place] [address] [place] Lactate [Moles/Vol] 0.9 mmol/L Normal 0.5-2.2 [facility] Comment on above: Order Comment: Speci men Type: VENOUS BLOOD SPECIMENOrdering Facility: [facility] Address: [address] [place] [address] Performed By: #### 2 4344-4 ####[facility] LABIA [id number] [place] [address] [place] Methemoglobin (Bld) [Mass fraction] 0.6 % Normal 0.0-1.5 [facility] Comment on above: Order Comment: Speci men Type: VENOUS BLOOD SPECIMENOrdering Facility: [facility] Address: [address] [place] [address] Performed By: #### 2 4344-4 ####[facility] LABCLIA [id number] [place] [address] [place] O2 THERAPY NC = Nasal Cannula Normal [facility] Comment on above: Order Comment: Speci men Type: VENOUS BLOOD SPECIMENOrdering Facility: [facility] Address: [address] [place] [address] Performed By: #### 2 4344-4 ####[facility] LABCLIA [id number] [place] [address] [place] Oxygen (BldV) [Partial pressure] 29 mm[Hg] Low 35-45 [facility] Comment on above: Order Comment: Speci men Type: VENOUS BLOOD SPECIMENOrdering Facility: [facility] Address: [address] [place] [address] Performed By: #### 2 4344-4 ####[facility] LABIA [id number] [place] [address] [place] Oxygen saturation in Venous blood 43 % Low 60-85 [facility] Comment on above: Order Comment: Speci men Type: VENOUS BLOOD SPECIMENOrdering Facility: [facility] Address: [address] [place] [address] Performed By: #### 2 4344-4 ####[facility] LABIA [id number] [place] [address] [place] Oxyhemoglobin (BldV) [Mass fraction] 42 % Low 60-85 [facility] Comment on above: Order Comment: Speci men Type: VENOUS BLOOD SPECIMENOrdering Facility: [facility] Address: [address] [place], [place] [address] Performed By: #### 2 4344-4 ####[facility] LABCLIA [id number] [place] [id number] [place] pH (BldV) 7.38 [pH] Normal 7.32-7.42 [facility] Comment on above: Order Comment: Speci men Type: VENOUS BLOOD SPECIMENOrdering Facility: [facility] Address: [address] [place] [address] Performed By: #### 2 4344-4 ####[facility] LABCLIA [id number] [place] [address] [place] Potassium [Moles/Vol] 4.0 mmol/L Normal 3.5-5.0 [facility] Comment on above: Order Comment: Speci men Type: VENOUS BLOOD SPECIMENOrdering Facility: [facility] Address: [address] [place] [address] Performed By: #### 2 4344-4 ####[facility] LABCLIA [id number] [place] [address] [place] Sodium [Moles/Vol] 135 mmol/L Low 136-144 [facility] Comment on above: Order Comment: Speci men Type: VENOUS BLOOD SPECIMENOrdering Facility: [facility] Address: [address] [place] [address] Performed By: #### 2 4344-4 ####[facility] LABCLIA [id number] [place] [address] [place] Base excess Calc (BldV) [Moles/Vol] 3 mmol/L High 0-2 [facility] Comment on above: Order Comment: Speci men Type: VENOUS BLOOD SPECIMENOrdering Facility: [facility] Address: [address] [place] [address] Performed By: #### 2 4344-4 ####[facility] LABCLIA [id number] [place] [address] [place] Body temperature 98.6 [degF] Normal [facility] Comment on above: Order Comment: Speci men Type: VENOUS BLOOD SPECIMENOrdering Facility: [facility] Address: [address] [place] [address] Performed By: #### 2 4344-4 ####[facility] LABIA [id number] [place] [address] [place] Calcium.ionized (Bld) [Mass/Vol] 1.22 mmol/L Normal 1.08-1.30 [facility] Comment on above: Order Comment: Speci men Type: VENOUS BLOOD SPECIMENOrdering Facility: [facility] Address: [address] [place] [address] Performed By: #### 2 4344-4 ####[facility] LABIA [id number] [place] [address] [place] Calcium.ionized adjusted to pH 7.4 (BldA) [Moles/Vol] 1.19 mmol/L Normal 1.08-1.30 [facility] Comment on above: Order Comment: Speci men Type: VENOUS BLOOD SPECIMENOrdering Facility: [facility] Address: [address] [place] [address] Performed By: #### 2 4344-4 ####[facility] [id number] [place] [address] [place] Carboxyhemoglobin (BldV) [Mass fraction] 1.5 % Normal 0.0-2.0 [facility] Comment on above: Order Comment: Speci men Type: VENOUS BLOOD SPECIMENOrdering Facility: [facility] Address: [address] [place] [address] Result Comment: Carb oxyhemoglobin Reference Range for Smokers: 2.0-8.0% Performed By: #### 2 4344-4 ####[facility] [id number] [place] [address] [place] CO2 (BldV) [Partial pressure] 52 mm[Hg] Normal 42-55 [facility] Comment on above: Order Comment: Speci men Type: VENOUS BLOOD SPECIMENOrdering Facility: [facility] Address: [address] [place] [address] Performed By: #### 2 4344-4 ####[facility] LABCLIA [id number] [place] [address] [place] Glucose [Mass/Vol] 118 mg/dL High 60-105 [facility] Comment on above: Order Comment: Speci men Type: VENOUS BLOOD SPECIMENOrdering Facility: [facility] Address: [address] [place] [address] Performed By: #### 2 4344-4 ####[facility] LABCLIA [id number] [place] [address] [place] HCO3 (Bld) [Moles/Vol] 28 mmol/L Normal 24-28 [facility] Comment on above: Order Comment: Speci men Type: VENOUS BLOOD SPECIMENOrdering Facility: [facility] Address: [address] [place] [address] Performed By: #### 2 4344-4 ####[facility] LABCLIA [id number] [place] [address] [place] Hematocrit (Bld) [Volume fraction] 25.8 % Low 39.0-51.0 [facility] Comment on above: Order Comment: Speci men Type: VENOUS BLOOD SPECIMENOrdering Facility: [facility] Address: [address] [place] [address] Performed By: #### 2 4344-4 ####[facility] LABCLIA [id number] [place] [address] [place] Hemoglobin (Bld) [Mass/Vol] 8.3 g/dL Low 13.0-17.0 [facility] Comment on above: Order Comment: Speci men Type: VENOUS BLOOD SPECIMENOrdering Facility: [facility] Address: [address] [place] [address] Performed By: #### 2 4344-4 ####[facility] LABCLIA [id number] [place] [address] [place] Lactate [Moles/Vol] 0.8 mmol/L Normal 0.5-2.2 [facility] Comment on above: Order Comment: Speci men Type: VENOUS BLOOD SPECIMENOrdering Facility: [facility] Address: [address] [place] [id number] Performed By: #### 2 4344-4 ####[facility] LABCLIA [id number] [address] [address] [place] LITERS 2 Liters/min Normal [facility] Comment on above: Order Comment: Speci men Type: VENOUS BLOOD SPECIMENOrdering Facility: [facility] Address: [address] [place] [address] Performed By: #### 2 4344-4 ####[facility] LABCLIA [id number] [place] [address] [place] Methemoglobin (Bld) [Mass fraction] 0.6 % Normal 0.0-1.5 [facility] Comment on above: Order Comment: Speci men Type: VENOUS BLOOD SPECIMENOrdering Facility: [facility] Address: [address] [place] [address] Performed By: #### 2 4344-4 ####[facility] LABCLIA [id number] [place] [address] [place] O2 THERAPY NC = Nasal Cannula Normal [facility] Comment on above: Order Comment: Speci men Type: VENOUS BLOOD SPECIMENOrdering Facility: [facility] Address: [address] [place], [place] [address] Performed By: #### 2 4344-4 ####[facility] LABCLIA [id number] [place] [id number] [place] Oxygen (BldV) [Partial pressure] 35 mm[Hg] Normal 35-45 [facility] Comment on above: Order Comment: Speci men Type: VENOUS BLOOD SPECIMENOrdering Facility: [facility] Address: [address] [place], [place] [address] Performed By: #### 2 4344-4 ####[facility] LABCLIA [id number] [address] [address] [place] Oxygen saturation in Venous blood 57 % Low 60-85 [facility] Comment on above: Order Comment: Speci men Type: VENOUS BLOOD SPECIMENOrdering Facility: [facility] Address: [address] [place], [place] [address] Performed By: #### 2 4344-4 ####[facility] LABCLIA [id number] [place] [address] [place] Oxyhemoglobin (BldV) [Mass fraction] 56 % Low 60-85 [facility] Comment on above: Order Comment: Speci men Type: VENOUS BLOOD SPECIMENOrdering Facility: [facility] Address: [address] [place] [address] Performed By: #### 2 4344-4 ####[facility] LABCLIA [id number] [place] [address] [place] pH (BldV) 7.35 [pH] Normal 7.32-7.42 [facility] Comment on above: Order Comment: Speci men Type: VENOUS BLOOD SPECIMENOrdering Facility: [facility] Address: [address] [place] [address] Performed By: #### 2 4344-4 ####[facility] LABCLIA [id number] [place] [address] [place] Potassium [Moles/Vol] 4.2 mmol/L Normal 3.5-5.0 [facility] Comment on above: Order Comment: Speci men Type: VENOUS BLOOD SPECIMENOrdering Facility: [facility] Address: [address] [place], [place] [address] Performed By: #### 2 4344-4 ####[facility] LABCLIA [id number] [place] [address] [place] Sodium [Moles/Vol] 135 mmol/L Low 136-144 [facility] Comment on above: Order Comment: Speci men Type: VENOUS BLOOD SPECIMENOrdering Facility: [facility] Address: [address] [place] [address] Performed By: #### 2 4344-4 ####[facility] LABIA [id number] [place] [address] [place] Base excess Calc (BldV) [Moles/Vol] 3 mmol/L High 0-2 [facility] Comment on above: Order Comment: Speci men Type: VENOUS BLOOD SPECIMENOrdering Facility: [facility] Address: [address] [place] [address] Performed By: #### 2 4344-4 ####[facility] LABIA [id number] [place] [address] [place] Body temperature 98.6 [degF] Normal [facility] Comment on above: Order Comment: Speci men Type: VENOUS BLOOD SPECIMENOrdering Facility: [facility] Address: [address] [place] [address] Performed By: #### 2 4344-4 ####[facility] LABIA [id number] [place] [address] [place] Calcium.ionized (Bld) [Mass/Vol] 1.21 mmol/L Normal 1.08-1.30 [facility] Comment on above: Order Comment: Speci men Type: VENOUS BLOOD SPECIMENOrdering Facility: [facility] Address: [address] [place] [address] Performed By: #### 2 4344-4 ####[facility] LABIA [id number] [place] [address] [place] Calcium.ionized adjusted to pH 7.4 (BldA) [Moles/Vol] 1.18 mmol/L Normal 1.08-1.30 [facility] Comment on above: Order Comment: Speci men Type: VENOUS BLOOD SPECIMENOrdering Facility: [facility] Address: [address] [place] [address] Performed By: #### 2 4344-4 ####[facility] LABCLIA [id number] [place] [address] [place] Carboxyhemoglobin (BldV) [Mass fraction] 1.6 % Normal 0.0-2.0 [facility] Comment on above: Order Comment: Speci men Type: VENOUS BLOOD SPECIMENOrdering Facility: [facility] Address: [address] [place] [address] Result Comment: Carb oxyhemoglobin Reference Range for Smokers: 2.0-8.0% Performed By: #### 2 4344-4 ####[facility] LABCLIA [id number] [place] [address] [place] CO2 (BldV) [Partial pressure] 53 mm[Hg] Normal 42-55 [facility] Comment on above: Order Comment: Speci men Type: VENOUS BLOOD SPECIMENOrdering Facility: [facility] Address: [address] [place] [address] Performed By: #### 2 4344-4 ####[facility] LABCLIA [id number] [place] [address] [place] Glucose [Mass/Vol] 115 mg/dL High 60-105 [facility] Comment on above: Order Comment: Speci men Type: VENOUS BLOOD SPECIMENOrdering Facility: [facility] Address: [address] [place] [address] Performed By: #### 2 4344-4 ####[facility] LABCLIA [id number] [place] [address] [place] HCO3 (Bld) [Moles/Vol] 29 mmol/L High 24-28 [facility] Comment on above: Order Comment: Speci men Type: VENOUS BLOOD SPECIMENOrdering Facility: [facility] Address: [address] [place] [address] Performed By: #### 2 4344-4 ####[facility] LABCLIA [id number] [place] [address] [place] Hematocrit (Bld) [Volume fraction] 25.2 % Low 39.0-51.0 [facility] Comment on above: Order Comment: Speci men Type: VENOUS BLOOD SPECIMENOrdering Facility: [facility] Address: [address] [place] [address] Performed By: #### 2 4344-4 ####[facility] LABCLIA [id number] [place] [address] [place] Hemoglobin (Bld) [Mass/Vol] 8.1 g/dL Low 13.0-17.0 [facility] Comment on above: Order Comment: Speci men Type: VENOUS BLOOD SPECIMENOrdering Facility: [facility] Address: [address] [place] [address] Performed By: #### 2 4344-4 ####[facility] LABCLIA [id number] [place] [address] [place] Lactate [Moles/Vol] 0.8 mmol/L Normal 0.5-2.2 [facility] Comment on above: Order Comment: Speci men Type: VENOUS BLOOD SPECIMENOrdering Facility: [facility] Address: [address] [place] [address] Performed By: #### 2 4344-4 ####[facility] LABCLIA [id number] [place] [address] [place] LITERS 2 Liters/min Normal [facility] Comment on above: Order Comment: Speci men Type: VENOUS BLOOD SPECIMENOrdering Facility: [facility] Address: [address] [place] [address] Performed By: #### 2 4344-4 ####[facility] LABCLIA [id number] [place] [address] [place] Methemoglobin (Bld) [Mass fraction] 0.7 % Normal 0.0-1.5 [facility] Comment on above: Order Comment: Speci men Type: VENOUS BLOOD SPECIMENOrdering Facility: [facility] Address: [address] [place], [place] [address] Performed By: #### 2 4344-4 ####[facility] LABCLIA [id number] [place] [address] [place] O2 THERAPY NC = Nasal Cannula Normal [facility] Comment on above: Order Comment: Speci men Type: VENOUS BLOOD SPECIMENOrdering Facility: [facility] Address: [address] [place] [address] Performed By: #### 2 4344-4 ####[facility] LABCLIA [id number] [place] [address] [place] Oxygen (BldV) [Partial pressure] 33 mm[Hg] Low 35-45 [facility] Comment on above: Order Comment: Speci men Type: VENOUS BLOOD SPECIMENOrdering Facility: [facility] Address: [address] [place] [address] Performed By: #### 2 4344-4 ####[facility] LABCLIA [id number] [address] [address] [place] Oxygen saturation in Venous blood 54 % Low 60-85 [facility] Comment on above: Order Comment: Speci men Type: VENOUS BLOOD SPECIMENOrdering Facility: [facility] Address: [address] [place], [place] [address] Performed By: #### 2 4344-4 ####[facility] LABCLIA [id number] [address] [address] [place] Oxyhemoglobin (BldV) [Mass fraction] 53 % Low 60-85 [facility] Comment on above: Order Comment: Speci men Type: VENOUS BLOOD SPECIMENOrdering Facility: [facility] Address: [address] [place], [place] [address] Performed By: #### 2 4344-4 ####[facility] LABCLIA [id number] [address] [address] [place] pH (BldV) 7.36 [pH] Normal 7.32-7.42 [facility] Comment on above: Order Comment: Speci men Type: VENOUS BLOOD SPECIMENOrdering Facility: [facility] Address: [address] [place] [address] Performed By: #### 2 4344-4 ####[facility] LABCLIA [id number] [place] [address] [place] Potassium [Moles/Vol] 4.2 mmol/L Normal 3.5-5.0 [facility] Comment on above: Order Comment: Speci men Type: VENOUS BLOOD SPECIMENOrdering Facility: [facility] Address: [address] [place] [address] Performed By: #### 2 4344-4 ####[facility] LABCLIA [id number] [place] [address] [place] Sodium [Moles/Vol] 135 mmol/L Low 136-144 [facility] Comment on above: Order Comment: Speci men Type: VENOUS BLOOD SPECIMENOrdering Facility: [facility] Address: [address] [place] [address] Performed By: #### 2 4344-4 ####[facility] LABCLIA [id number] [place] [address] [place] XR CHEST 1V FRONTAL PORTon 0 06-21-2024 XR CHEST 1V FRONTAL PORT Normal [facility] CBC panel Auto (Bld)on 06-20 Erythrocyte distribution width (RBC) [Ratio] 14.9 % Normal 11.5-15.0 [facility] Comment on above: Order Comment: Speci men Type: BLOOD SPECIMENOrdering Facility: [facility] Address: [address] [place] [address] Performed By: #### 5 8410-2 ####[facility] LABCLIA [id number] [place] [address] [place] Hematocrit (Bld) [Volume fraction] 26.7 % Low 39.0-51.0 [facility] Comment on above: Order Comment: Speci men Type: BLOOD SPECIMENOrdering Facility: [facility] Address: [address] [place] [address] Performed By: #### 5 8410-2 ####[facility] [id number] [place] [address] [place] Hemoglobin (Bld) [Mass/Vol] 8.6 g/dL Low 13.0-17.0 [facility] Comment on above: Order Comment: Speci men Type: BLOOD SPECIMENOrdering Facility: [facility] Address: [address] [place] [address] Performed By: #### 5 8410-2 ####[facility] [id number] [place] [address] [place] MCH (RBC) [Entitic mass] 29.8 pg Normal 26.0-34.0 [facility] Comment on above: Order Comment: Speci men Type: BLOOD SPECIMENOrdering Facility: [facility] Address: [address] [place] [address] Performed By: #### 5 8410-2 ####[facility] [id number] [place] [address] [place] MCHC (RBC) [Mass/Vol] 32.2 g/dL Normal 30.5-36.0 [facility] Comment on above: Order Comment: Speci men Type: BLOOD SPECIMENOrdering Facility: [facility] Address: [address] [place] [address] Performed By: #### 5 8410-2 ####[facility] [id number] [place] [address] [place] MCV (RBC) [Entitic vol] 92.4 fL Normal 80.0-100.0 [facility] Comment on above: Order Comment: Speci men Type: BLOOD SPECIMENOrdering Facility: [facility] Address: [address] [place] [address] Performed By: #### 5 8410-2 ####[facility] LABCLIA [id number] [place] [address] [place] Nucleated RBC (Bld) [#/Vol] 10*3/uL Normal <0.01 [facility] Comment on above: Order Comment: Speci men Type: BLOOD SPECIMENOrdering Facility: [facility] Address: [address] [place] [address] Performed By: #### 5 8410-2 ####[facility] LABIA [id number] [place] [address] [place] Platelet mean volume (Bld) [Entitic vol] 11.2 fL Normal 9.0-12.7 [facility] Comment on above: Order Comment: Speci men Type: BLOOD SPECIMENOrdering Facility: [facility] Address: [address] [place] [address] Performed By: #### 5 8410-2 ####[facility] LABIA [id number] [place] [address] [place] Platelets (Bld) [#/Vol] 128 10*3/uL Low 150-400 [facility] Comment on above: Order Comment: Speci men Type: BLOOD SPECIMENOrdering Facility: [facility] Address: [address] [place] [address] Result Comment: No c lot detected.Results checked and verified. Performed By: #### 5 8410-2 ####[facility] LABIA [id number] [place] [address] [place] RBC (Bld) [#/Vol] 2.89 10*6/uL Low 4.20-6.00 [facility] Comment on above: Order Comment: Speci men Type: BLOOD SPECIMENOrdering Facility: [facility] Address: [address] [place] [address] Performed By: #### 5 8410-2 ####[facility] LABCLIA [id number] [place] [address] [place] WBC (Bld) [#/Vol] 15.04 10*3/uL High 3.70-11.00 [facility] Comment on above: Order Comment: Speci men Type: BLOOD SPECIMENOrdering Facility: [facility] Address: [address] [place] [address] Performed By: #### 5 8410-2 ####[facility] LABCLIA [id number] [place] [address] [place] Comprehensive metabolic 2000 panelon 06-20-2024 Albumin [Mass/Vol] 3.4 g/dL Low 3.9-4.9 [facility] Comment on above: Order Comment: Speci men Type: BLOOD SPECIMENOrdering Facility: [facility] Address: [address] [place] [address] Performed By: #### 2 4323-8 ####[facility] LABCLIA [id number] [place] [address] [place] ALP [Catalytic activity/Vol] 35 U/L Low 38-113 [facility] Comment on above: Order Comment: Speci men Type: BLOOD SPECIMENOrdering Facility: [facility] Address: [address] [place] [address] Performed By: #### 2 4323-8 ####[facility] LABCLIA [id number] [place] [address] [place] ALT [Catalytic activity/Vol] 23 U/L Normal 10-54 [facility] Comment on above: Order Comment: Speci men Type: BLOOD SPECIMENOrdering Facility: [facility] Address: [address] [place] [address] Performed By: #### 2 4323-8 ####[facility] LABCLIA [id number] [place] [address] [place] Anion gap [Moles/Vol] 12 mmol/L Normal 8-15 [facility] Comment on above: Order Comment: Speci men Type: BLOOD SPECIMENOrdering Facility: [facility] Address: [address] [place] [address] Performed By: #### 2 4323-8 ####[facility] LABCLIA [id number] [place] [id number] [place] AST [Catalytic activity/Vol] 50 U/L High 14-40 [facility] Comment on above: Order Comment: Speci men Type: BLOOD SPECIMENOrdering Facility: [facility] Address: [address] [place] [address] Performed By: #### 2 4323-8 ####[facility] LABCLIA [id number] [place] [address] [place] Bilirubin [Mass/Vol] 0.6 mg/dL Normal 0.2-1.3 [facility] Comment on above: Order Comment: Speci men Type: BLOOD SPECIMENOrdering Facility: [facility] Address: [address] [place] [address] Performed By: #### 2 4323-8 ####[facility] LABCLIA [id number] [place] [address] [place] Calcium [Mass/Vol] 8.7 mg/dL Normal 8.5-10.2 [facility] Comment on above: Order Comment: Speci men Type: BLOOD SPECIMENOrdering Facility: [facility] Address: [address] [place] [address] Performed By: #### 2 4323-8 ####[facility] LABCLIA [id number] [place] [address] [place] Chloride [Moles/Vol] 102 mmol/L Normal 98-107 [facility] Comment on above: Order Comment: Speci men Type: BLOOD SPECIMENOrdering Facility: [facility] Address: [address] [place] [address] Performed By: #### 2 4323-8 ####[facility] LABCLIA [id number] [place] [address] [place] CO2 [Moles/Vol] 24 mmol/L Normal 22-30 [facility] Comment on above: Order Comment: Speci men Type: BLOOD SPECIMENOrdering Facility: [facility] Address: [address] [place] [address] Performed By: #### 2 4323-8 ####[facility] LABCLIA [id number] [place] [address] [place] Creatinine [Mass/Vol] 1.87 mg/dL High 0.73-1.22 [facility] Comment on above: Order Comment: Speci men Type: BLOOD SPECIMENOrdering Facility: [facility] Address: [address] [place] [address] Performed By: #### 2 4323-8 ####[facility] LABIA [id number] [place] [address] [place] Creatinine and Glomerular filtration rate.predicted panel (S/P/Bld) 37 mL/min/1.73m??? Low >=60 [facility] Comment on above: Order Comment: Speci men Type: BLOOD SPECIMENOrdering Facility: [facility] Address: [address] [place] [address] Result Comment: Annalisa mated Glomerular Filtration Rate [...] actual GFR. Performed By: #### 2 4323-8 ####[facility] LABCLIA [id number] [place] [address] [place] Glucose [Mass/Vol] 152 mg/dL High 74-99 [facility] Comment on above: Order Comment: Speci men Type: BLOOD SPECIMENOrdering Facility: [facility] Address: [address] [place] [address] Result Comment: The [place] [employer] (ADA) provides guidance for cutoff [...] Standards of Medical Care in Diabetes 2016, [place] [employer]. Diabetes Care. 2016.39(Suppl 1). Performed By: #### 2 4323-8 ####[facility] LABCLIA [id number] [place] [address] [place] Potassium [Moles/Vol] 5.0 mmol/L Normal 3.7-5.1 [facility] Comment on above: Order Comment: Speci men Type: BLOOD SPECIMENOrdering Facility: [facility] Address: [address] [place] [address] Performed By: #### 2 4323-8 ####[facility] LABCLIA [id number] [place] [address] [place] Protein [Mass/Vol] 4.9 g/dL Low 6.3-8.0 [facility] Comment on above: Order Comment: Speci men Type: BLOOD SPECIMENOrdering Facility: [facility] Address: [address] [place] [id number] Performed By: #### 2 4323-8 ####[facility] LABCLIA [id number] [place] [address] [place] Sodium [Moles/Vol] 138 mmol/L Normal 136-144 [facility] Comment on above: Order Comment: Speci men Type: BLOOD SPECIMENOrdering Facility: [facility] Address: [address] [place] [address] Performed By: #### 2 4323-8 ####[facility] LABCLIA [id number] [place] [address] [place] Urea nitrogen [Mass/Vol] 24 mg/dL Normal 9-24 [facility] Comment on above: Order Comment: Speci men Type: BLOOD SPECIMENOrdering Facility: [facility] Address: [address] [place] [address] Performed By: #### 2 4323-8 ####[facility] LABCLIA [id number] [place] [address] [place] Gas and Carbon monoxide pane l (BldV)on 06-20-2024 Base excess Calc (BldV) [Moles/Vol] 2 mmol/L Normal 0-2 [facility] Comment on above: Order Comment: Speci men Type: VENOUS BLOOD SPECIMENOrdering Facility: [facility] Address: [address] [place] [address] Performed By: #### 2 4344-4 ####[facility] LABCLIA [id number] [place] [address] [place] Body temperature 98.6 [degF] Normal [facility] Comment on above: Order Comment: Speci men Type: VENOUS BLOOD SPECIMENOrdering Facility: [facility] Address: [address] [place] [address] Performed By: #### 2 4344-4 ####[facility] LABCLIA [id number] [place] [address] [place] Calcium.ionized (Bld) [Mass/Vol] 1.23 mmol/L Normal 1.08-1.30 [facility] Comment on above: Order Comment: Speci men Type: VENOUS BLOOD SPECIMENOrdering Facility: [facility] Address: [address] [place] [address] Performed By: #### 2 4344-4 ####[facility] LABCLIA [id number] [place] [address] [place] Calcium.ionized adjusted to pH 7.4 (BldA) [Moles/Vol] 1.18 mmol/L Normal 1.08-1.30 [facility] Comment on above: Order Comment: Speci men Type: VENOUS BLOOD SPECIMENOrdering Facility: [facility] Address: [address] [place] [address] Performed By: #### 2 4344-4 ####[facility] [id number] [place] [address] [place] Carboxyhemoglobin (BldV) [Mass fraction] 1.5 % Normal 0.0-2.0 [facility] Comment on above: Order Comment: Speci men Type: VENOUS BLOOD SPECIMENOrdering Facility: [facility] Address: [address] [place] [address] Result Comment: Carb oxyhemoglobin Reference Range for Smokers: 2.0-8.0% Performed By: #### 2 4344-4 ####[facility] [id number] [place] [address] [place] CO2 (BldV) [Partial pressure] 52 mm[Hg] Normal 42-55 [facility] Comment on above: Order Comment: Speci men Type: VENOUS BLOOD SPECIMENOrdering Facility: [facility] Address: [address] [place] [address] Performed By: #### 2 4344-4 ####[facility] [id number] [place] [address] [place] Glucose [Mass/Vol] 120 mg/dL High 60-105 [facility] Comment on above: Order Comment: Speci men Type: VENOUS BLOOD SPECIMENOrdering Facility: [facility] Address: [address] [place] [address] Performed By: #### 2 4344-4 ####[facility] [id number] [place] [address] [place] HCO3 (Bld) [Moles/Vol] 27 mmol/L Normal 24-28 [facility] Comment on above: Order Comment: Speci men Type: VENOUS BLOOD SPECIMENOrdering Facility: [facility] Address: [address] [place] [address] Performed By: #### 2 4344-4 ####[facility] LABCLIA [id number] [place] [address] [place] Hematocrit (Bld) [Volume fraction] 25.2 % Low 39.0-51.0 [facility] Comment on above: Order Comment: Speci men Type: VENOUS BLOOD SPECIMENOrdering Facility: [facility] Address: [address] [place] [address] Performed By: #### 2 4344-4 ####[facility] LABCLIA [id number] [place] [address] [place] Hemoglobin (Bld) [Mass/Vol] 8.1 g/dL Low 13.0-17.0 [facility] Comment on above: Order Comment: Speci men Type: VENOUS BLOOD SPECIMENOrdering Facility: [facility] Address: [address] [place] [address] Performed By: #### 2 4344-4 ####[facility] LABCLIA [id number] [place] [address] [place] Lactate [Moles/Vol] 0.7 mmol/L Normal 0.5-2.2 [facility] Comment on above: Order Comment: Speci men Type: VENOUS BLOOD SPECIMENOrdering Facility: [facility] Address: [address] [place] [address] Performed By: #### 2 4344-4 ####[facility] LABCLIA [id number] [place] [address] [place] LITERS 2 Liters/min Normal [facility] Comment on above: Order Comment: Speci men Type: VENOUS BLOOD SPECIMENOrdering Facility: [facility] Address: [address] [place] [id number] Performed By: #### 2 4344-4 ####[facility] LABCLIA [id number] [place] [address] [place] Methemoglobin (Bld) [Mass fraction] 0.6 % Normal 0.0-1.5 [facility] Comment on above: Order Comment: Speci men Type: VENOUS BLOOD SPECIMENOrdering Facility: [facility] Address: [address] [place] [address] Performed By: #### 2 4344-4 ####[facility] LABCLIA [id number] [place] [address] [place] O2 THERAPY NC = Nasal Cannula Normal [facility] Comment on above: Order Comment: Speci men Type: VENOUS BLOOD SPECIMENOrdering Facility: [facility] Address: [address] [place] [address] Performed By: #### 2 4344-4 ####[facility] LABCLIA [id number] [place] [address] [place] Oxygen (BldV) [Partial pressure] 37 mm[Hg] Normal 35-45 [facility] Comment on above: Order Comment: Speci men Type: VENOUS BLOOD SPECIMENOrdering Facility: [facility] Address: [address] [place] [address] Performed By: #### 2 4344-4 ####[facility] LABCLIA [id number] [place] [id number] [place] Oxygen saturation in Venous blood 61 % Normal 60-85 [facility] Comment on above: Order Comment: Speci men Type: VENOUS BLOOD SPECIMENOrdering Facility: [facility] Address: [address] [place] [place] [id number] Performed By: #### 2 4344-4 ####[facility] LABCLIA [id number] [place] [id number] [place] Oxyhemoglobin (BldV) [Mass fraction] 60 % Normal 60-85 [facility] Comment on above: Order Comment: Speci men Type: VENOUS BLOOD SPECIMENOrdering Facility: [facility] Address: [address] [place] [address] Performed By: #### 2 4344-4 ####[facility] LABIA [id number] [place] [address] [place] pH (BldV) 7.34 [pH] Normal 7.32-7.42 [facility] Comment on above: Order Comment: Speci men Type: VENOUS BLOOD SPECIMENOrdering Facility: [facility] Address: [address] [place] [address] Performed By: #### 2 4344-4 ####[facility] LABIA [id number] [place] [address] [place] Potassium [Moles/Vol] 4.3 mmol/L Normal 3.5-5.0 [facility] Comment on above: Order Comment: Speci men Type: VENOUS BLOOD SPECIMENOrdering Facility: [facility] Address: [address] [place] [address] Performed By: #### 2 4344-4 ####[facility] LABIA [id number] [place] [address] [place] Sodium [Moles/Vol] 134 mmol/L Low 136-144 [facility] Comment on above: Order Comment: Speci men Type: VENOUS BLOOD SPECIMENOrdering Facility: [facility] Address: [address] [place] [address] Performed By: #### 2 4344-4 ####[facility] LABIA [id number] [place] [address] [place] Base excess Calc (BldV) [Moles/Vol] 2 mmol/L Normal 0-2 [facility] Comment on above: Order Comment: Speci men Type: VENOUS BLOOD SPECIMENOrdering Facility: [facility] Address: [address] [place], [place] [address] Performed By: #### 2 4344-4 ####[facility] LABIA [id number] [place] [address] [place] Body temperature 99.14 [degF] Normal [facility] Comment on above: Order Comment: Speci men Type: VENOUS BLOOD SPECIMENOrdering Facility: [facility] Address: [address] [place] [address] Performed By: #### 2 4344-4 ####[facility] LABIA [id number] [place] [address] [place] Calcium.ionized (Bld) [Mass/Vol] 1.22 mmol/L Normal 1.08-1.30 [facility] Comment on above: Order Comment: Speci men Type: VENOUS BLOOD SPECIMENOrdering Facility: [facility] Address: [address] [place] [address] Performed By: #### 2 4344-4 ####[facility] [id number] [place] [address] [place] Calcium.ionized adjusted to pH 7.4 (BldA) [Moles/Vol] 1.18 mmol/L Normal 1.08-1.30 [facility] Comment on above: Order Comment: Speci men Type: VENOUS BLOOD SPECIMENOrdering Facility: [facility] Address: [address] [place] [address] Performed By: #### 2 4344-4 ####[facility] LABIA [id number] [place] [id number] [place] Carboxyhemoglobin (BldV) [Mass fraction] 1.2 % Normal 0.0-2.0 [facility] Comment on above: Order Comment: Speci men Type: VENOUS BLOOD SPECIMENOrdering Facility: [facility] Address: [address] [place] [address] Result Comment: Carb oxyhemoglobin Reference Range for Smokers: 2.0-8.0% Performed By: #### 2 4344-4 ####[facility] LABCLIA [id number] [place] [address] [place] CO2 (BldV) [Partial pressure] 53 mm[Hg] Normal 42-55 [facility] Comment on above: Order Comment: Speci men Type: VENOUS BLOOD SPECIMENOrdering Facility: [facility] Address: [address] [place] [address] Performed By: #### 2 4344-4 ####[facility] LABCLIA [id number] [place] [address] [place] CO2 adjusted to patient's actual temperature (BldV) [Partial pressure] 54 mmHg Normal 42-55 [facility] Comment on above: Order Comment: Speci men Type: VENOUS BLOOD SPECIMENOrdering Facility: [facility] Address: [address] [place] [address] Performed By: #### 2 4344-4 ####[facility] LABCLIA [id number] [place] [address] [place] Glucose [Mass/Vol] 123 mg/dL High 60-105 [facility] Comment on above: Order Comment: Speci men Type: VENOUS BLOOD SPECIMENOrdering Facility: [facility] Address: [address] [place] [address] Performed By: #### 2 4344-4 ####[facility] LABCLIA [id number] [place] [address] [place] HCO3 (Bld) [Moles/Vol] 28 mmol/L Normal 24-28 [facility] Comment on above: Order Comment: Speci men Type: VENOUS BLOOD SPECIMENOrdering Facility: [facility] Address: [address] [place] [address] Performed By: #### 2 4344-4 ####[facility] LABCLIA [id number] [place] [address] [place] Hematocrit (Bld) [Volume fraction] 26.5 % Low 39.0-51.0 [facility] Comment on above: Order Comment: Speci men Type: VENOUS BLOOD SPECIMENOrdering Facility: [facility] Address: [address] [place] [address] Performed By: #### 2 4344-4 ####[facility] LABCLIA [id number] [place] [address] [place] Hemoglobin (Bld) [Mass/Vol] 8.5 g/dL Low 13.0-17.0 [facility] Comment on above: Order Comment: Speci men Type: VENOUS BLOOD SPECIMENOrdering Facility: [facility] Address: [address] [place] [address] Performed By: #### 2 4344-4 ####[facility] LABCLIA [id number] [place] [address] [place] Lactate [Moles/Vol] 0.9 mmol/L Normal 0.5-2.2 [facility] Comment on above: Order Comment: Speci men Type: VENOUS BLOOD SPECIMENOrdering Facility: [facility] Address: [address] [place] [address] Performed By: #### 2 4344-4 ####[facility] LABCLIA [id number] [place] [address] [place] LITERS 2 Liters/min Normal [facility] Comment on above: Order Comment: Speci men Type: VENOUS BLOOD SPECIMENOrdering Facility: [facility] Address: [address] [place] [address] Performed By: #### 2 4344-4 ####[facility] LABCLIA [id number] [place] [address] [place] Methemoglobin (Bld) [Mass fraction] 1.5 % Normal 0.0-1.5 [facility] Comment on above: Order Comment: Speci men Type: VENOUS BLOOD SPECIMENOrdering Facility: [facility] Address: [address] [place] [address] Performed By: #### 2 4344-4 ####[facility] LABCLIA [id number] [address] [address] [place] O2 THERAPY NC = Nasal Cannula Normal [facility] Comment on above: Order Comment: Speci men Type: VENOUS BLOOD SPECIMENOrdering Facility: [facility] Address: [address] [place] [address] Performed By: #### 2 4344-4 ####[facility] LABCLIA [id number] [address] [address] [place] Oxygen (BldV) [Partial pressure] 37 mm[Hg] Normal 35-45 [facility] Comment on above: Order Comment: Speci men Type: VENOUS BLOOD SPECIMENOrdering Facility: [facility] Address: [address] [place] [address] Performed By: #### 2 4344-4 ####[facility] LABCLIA [id number] [address] [address] [place] Oxygen adjusted to patient's actual temperature (BldV) [Partial pressure] 38 mmHg Normal 35-45 [facility] Comment on above: Order Comment: Speci men Type: VENOUS BLOOD SPECIMENOrdering Facility: [facility] Address: [address] [place] [address] Performed By: #### 2 4344-4 ####[facility] LABCLIA [id number] [address] [address] [place] Oxygen saturation in Venous blood 62 % Normal 60-85 [facility] Comment on above: Order Comment: Speci men Type: VENOUS BLOOD SPECIMENOrdering Facility: [facility] Address: [address] [place] [address] Performed By: #### 2 4344-4 ####[facility] LABCLIA [id number] [address] [address] [place] Oxyhemoglobin (BldV) [Mass fraction] 60 % Normal 60-85 [facility] Comment on above: Order Comment: Speci men Type: VENOUS BLOOD SPECIMENOrdering Facility: [facility] Address: [address] [place] [address] Performed By: #### 2 4344-4 ####[facility] LABIA [id number] [place] [address] [place] pH (BldV) 7.34 [pH] Normal 7.32-7.42 [facility] Comment on above: Order Comment: Speci men Type: VENOUS BLOOD SPECIMENOrdering Facility: [facility] Address: [address] [place] [address] Performed By: #### 2 4344-4 ####[facility] LABIA [id number] [place] [address] [place] pH adjusted to patient's actual temperature (BldV) 7.34 Normal 7.32-7.42 [facility] Comment on above: Order Comment: Speci men Type: VENOUS BLOOD SPECIMENOrdering Facility: [facility] Address: [address] [place] [address] Performed By: #### 2 4344-4 ####[facility] LABIA [id number] [place] [address] [place] Potassium [Moles/Vol] 4.2 mmol/L Normal 3.5-5.0 [facility] Comment on above: Order Comment: Speci men Type: VENOUS BLOOD SPECIMENOrdering Facility: [facility] Address: [address] [place] [address] Performed By: #### 2 4344-4 ####[facility] LABIA [id number] [place] [address] [place] Sodium [Moles/Vol] 135 mmol/L Low 136-144 [facility] Comment on above: Order Comment: Speci men Type: VENOUS BLOOD SPECIMENOrdering Facility: [facility] Address: [address] [place] [address] Performed By: #### 2 4344-4 ####[facility] LABCLIA [id number] [place] [address] [place] Base excess Calc (BldV) [Moles/Vol] 1 mmol/L Normal 0-2 [facility] Comment on above: Order Comment: Speci men Type: VENOUS BLOOD SPECIMENOrdering Facility: [facility] Address: [address] [place] [address] Performed By: #### 2 4344-4 ####[facility] LABIA [id number] [place] [address] [place] Body temperature 98.6 [degF] Normal [facility] Comment on above: Order Comment: Speci men Type: VENOUS BLOOD SPECIMENOrdering Facility: [facility] Address: [address] [place] [address] Performed By: #### 2 4344-4 ####[facility] LABIA [id number] [place] [address] [place] Calcium.ionized (Bld) [Mass/Vol] 1.20 mmol/L Normal 1.08-1.30 [facility] Comment on above: Order Comment: Speci men Type: VENOUS BLOOD SPECIMENOrdering Facility: [facility] Address: [address] [place] [address] Performed By: #### 2 4344-4 ####[facility] LABIA [id number] [place] [address] [place] Calcium.ionized adjusted to pH 7.4 (BldA) [Moles/Vol] 1.16 mmol/L Normal 1.08-1.30 [facility] Comment on above: Order Comment: Speci men Type: VENOUS BLOOD SPECIMENOrdering Facility: [facility] Address: [address] [place] [address] Performed By: #### 2 4344-4 ####[facility] LABIA [id number] [place] [address] [place] Carboxyhemoglobin (BldV) [Mass fraction] 1.5 % Normal 0.0-2.0 [facility] Comment on above: Order Comment: Speci men Type: VENOUS BLOOD SPECIMENOrdering Facility: [facility] Address: [address] [place] [address] Result Comment: Carb oxyhemoglobin Reference Range for Smokers: 2.0-8.0% Performed By: #### 2 4344-4 ####[facility] LABCLIA [id number] [place] [address] [place] CO2 (BldV) [Partial pressure] 51 mm[Hg] Normal 42-55 [facility] Comment on above: Order Comment: Speci men Type: VENOUS BLOOD SPECIMENOrdering Facility: [facility] Address: [address] [place] [address] Performed By: #### 2 4344-4 ####[facility] LABCLIA [id number] [place] [address] [place] Glucose [Mass/Vol] 127 mg/dL High 60-105 [facility] Comment on above: Order Comment: Speci men Type: VENOUS BLOOD SPECIMENOrdering Facility: [facility] Address: [address] [place] [address] Performed By: #### 2 4344-4 ####[facility] LABCLIA [id number] [place] [address] [place] HCO3 (Bld) [Moles/Vol] 27 mmol/L Normal 24-28 [facility] Comment on above: Order Comment: Speci men Type: VENOUS BLOOD SPECIMENOrdering Facility: [facility] Address: [address] [place] [address] Performed By: #### 2 4344-4 ####[facility] LABCLIA [id number] [place] [address] [place] Hematocrit (Bld) [Volume fraction] 25.8 % Low 39.0-51.0 [facility] Comment on above: Order Comment: Speci men Type: VENOUS BLOOD SPECIMENOrdering Facility: [facility] Address: [address] [place], [place] [address] Performed By: #### 2 4344-4 ####[facility] LABCLIA [id number] [address] [address] [place] Hemoglobin (Bld) [Mass/Vol] 8.3 g/dL Low 13.0-17.0 [facility] Comment on above: Order Comment: Speci men Type: VENOUS BLOOD SPECIMENOrdering Facility: [facility] Address: [address] [place] [address] Performed By: #### 2 4344-4 ####[facility] LABCLIA [id number] [place] [address] [place] Lactate [Moles/Vol] 0.8 mmol/L Normal 0.5-2.2 [facility] Comment on above: Order Comment: Speci men Type: VENOUS BLOOD SPECIMENOrdering Facility: [facility] Address: [address] [place] [address] Performed By: #### 2 4344-4 ####[facility] LABCLIA [id number] [place] [address] [place] LITERS 2 Liters/min Normal [facility] Comment on above: Order Comment: Speci men Type: VENOUS BLOOD SPECIMENOrdering Facility: [facility] Address: [address] [place] [address] Performed By: #### 2 4344-4 ####[facility] LABIA [id number] [place] [address] [place] Methemoglobin (Bld) [Mass fraction] 1.5 % Normal 0.0-1.5 [facility] Comment on above: Order Comment: Speci men Type: VENOUS BLOOD SPECIMENOrdering Facility: [facility] Address: [address] [place], [place] [address] Performed By: #### 2 4344-4 ####[facility] LABCLIA [id number] [address] [address] [place] O2 THERAPY NC = Nasal Cannula Normal [facility] Comment on above: Order Comment: Speci men Type: VENOUS BLOOD SPECIMENOrdering Facility: [facility] Address: [address] [place], [place] [address] Performed By: #### 2 4344-4 ####[facility] LABCLIA [id number] [place] [address] [place] Oxygen (BldV) [Partial pressure] 39 mm[Hg] Normal 35-45 [facility] Comment on above: Order Comment: Speci men Type: VENOUS BLOOD SPECIMENOrdering Facility: [facility] Address: [address] [place], [place] [address] Performed By: #### 2 4344-4 ####[facility] LABIA [id number] [place] [address] [place] Oxygen saturation in Venous blood 65 % Normal 60-85 [facility] Comment on above: Order Comment: Speci men Type: VENOUS BLOOD SPECIMENOrdering Facility: [facility] Address: [address] [place], [place] [address] Performed By: #### 2 4344-4 ####[facility] LABIA [id number] [address] [address] [place] Oxyhemoglobin (BldV) [Mass fraction] 63 % Normal 60-85 [facility] Comment on above: Order Comment: Speci men Type: VENOUS BLOOD SPECIMENOrdering Facility: [facility] Address: [address] [place] [address] Performed By: #### 2 4344-4 ####[facility] LABCLIA [id number] [address] [address] [place] pH (BldV) 7.34 [pH] Normal 7.32-7.42 [facility] Comment on above: Order Comment: Speci men Type: VENOUS BLOOD SPECIMENOrdering Facility: [facility] Address: [address] [address] Performed By: #### 2 4344-4 ####[facility] LABCLIA [id number] [address] [address] [place] Potassium [Moles/Vol] 4.4 mmol/L Normal 3.5-5.0 [facility] Comment on above: Order Comment: Speci men Type: VENOUS BLOOD SPECIMENOrdering Facility: [facility] Address: [address] [place], [place] [address] Performed By: #### 2 4344-4 ####[facility] LABCLIA [id number] [place] [address] [place] Sodium [Moles/Vol] 134 mmol/L Low 136-144 [facility] Comment on above: Order Comment: Speci men Type: VENOUS BLOOD SPECIMENOrdering Facility: [facility] Address: [address] [place] [address] Performed By: #### 2 4344-4 ####[facility] LABCLIA [id number] [place] [address] [place] Base excess Calc (BldV) [Moles/Vol] 0 mmol/L Normal 0-2 [facility] Comment on above: Order Comment: Speci men Type: VENOUS BLOOD SPECIMENOrdering Facility: [facility] Address: [address] [place], [place] [address] Performed By: #### 2 4344-4 ####[facility] LABCLIA [id number] [place] [id number] [place] Body temperature 98.6 [degF] Normal [facility] Comment on above: Order Comment: Speci men Type: VENOUS BLOOD SPECIMENOrdering Facility: [facility] Address: [address] [place], [place] [address] Performed By: #### 2 4344-4 ####[facility] LABCLIA [id number] [place] [address] [place] Calcium.ionized (Bld) [Mass/Vol] 1.16 mmol/L Normal 1.08-1.30 [facility] Comment on above: Order Comment: Speci men Type: VENOUS BLOOD SPECIMENOrdering Facility: [facility] Address: [address] [place] [address] Performed By: #### 2 4344-4 ####[facility] LABIA [id number] [place] [address] [place] Calcium.ionized adjusted to pH 7.4 (BldA) [Moles/Vol] 1.13 mmol/L Normal 1.08-1.30 [facility] Comment on above: Order Comment: Speci men Type: VENOUS BLOOD SPECIMENOrdering Facility: [facility] Address: [address] [place] [address] Performed By: #### 2 4344-4 ####[facility] [id number] [place] [address] [place] Carboxyhemoglobin (BldV) [Mass fraction] 1.7 % Normal 0.0-2.0 [facility] Comment on above: Order Comment: Speci men Type: VENOUS BLOOD SPECIMENOrdering Facility: [facility] Address: [address] [place] [address] Result Comment: Carb oxyhemoglobin Reference Range for Smokers: 2.0-8.0% Performed By: #### 2 4344-4 ####[facility] LABIA [id number] [place] [address] [place] CO2 (BldV) [Partial pressure] 46 mm[Hg] Normal 42-55 [facility] Comment on above: Order Comment: Speci men Type: VENOUS BLOOD SPECIMENOrdering Facility: [facility] Address: [address] [place] [address] Performed By: #### 2 4344-4 ####[facility] LABIA [id number] [place] [address] [place] Glucose [Mass/Vol] 114 mg/dL High 60-105 [facility] Comment on above: Order Comment: Speci men Type: VENOUS BLOOD SPECIMENOrdering Facility: [facility] Address: [address] [place] [address] Performed By: #### 2 4344-4 ####[facility] LABCLIA [id number] [place] [address] [place] HCO3 (Bld) [Moles/Vol] 25 mmol/L Normal 24-28 [facility] Comment on above: Order Comment: Speci men Type: VENOUS BLOOD SPECIMENOrdering Facility: [facility] Address: [address] [place] [address] Performed By: #### 2 4344-4 ####[facility] LABCLIA [id number] [place] [address] [place] Hematocrit (Bld) [Volume fraction] 25.0 % Low 39.0-51.0 [facility] Comment on above: Order Comment: Speci men Type: VENOUS BLOOD SPECIMENOrdering Facility: [facility] Address: [address] [place] [address] Performed By: #### 2 4344-4 ####[facility] LABCLIA [id number] [place] [address] [place] Hemoglobin (Bld) [Mass/Vol] 8.0 g/dL Low 13.0-17.0 [facility] Comment on above: Order Comment: Speci men Type: VENOUS BLOOD SPECIMENOrdering Facility: [facility] Address: [address] [place] [address] Performed By: #### 2 4344-4 ####[facility] LABCLIA [id number] [place] [address] [place] Lactate [Moles/Vol] 0.8 mmol/L Normal 0.5-2.2 [facility] Comment on above: Order Comment: Speci men Type: VENOUS BLOOD SPECIMENOrdering Facility: [facility] Address: [address] [address] Performed By: #### 2 4344-4 ####[facility] LABCLIA [id number] [address] [address] [place] LITERS 2 Liters/min Normal [facility] Comment on above: Order Comment: Speci men Type: VENOUS BLOOD SPECIMENOrdering Facility: [facility] Address: [address] [place], [place] [address] Performed By: #### 2 4344-4 ####[facility] LABCLIA [id number] [place] [address] [place] Methemoglobin (Bld) [Mass fraction] 0.5 % Normal 0.0-1.5 [facility] Comment on above: Order Comment: Speci men Type: VENOUS BLOOD SPECIMENOrdering Facility: [facility] Address: [address] [place], [place] [address] Performed By: #### 2 4344-4 ####[facility] LABIA [id number] [place] [address] [place] O2 THERAPY NC = Nasal Cannula Normal [facility] Comment on above: Order Comment: Speci men Type: VENOUS BLOOD SPECIMENOrdering Facility: [facility] Address: [address] [place], [place] [address] Performed By: #### 2 4344-4 ####[facility] LABCLIA [id number] [address] [address] [place] Oxygen (BldV) [Partial pressure] 38 mm[Hg] Normal 35-45 [facility] Comment on above: Order Comment: Speci men Type: VENOUS BLOOD SPECIMENOrdering Facility: [facility] Address: [address] [place], [place] [address] Performed By: #### 2 4344-4 ####[facility] LABCLIA [id number] [address] [address] [place] Oxygen saturation in Venous blood 64 % Normal 60-85 [facility] Comment on above: Order Comment: Speci men Type: VENOUS BLOOD SPECIMENOrdering Facility: [facility] Address: [address] [place] [address] Performed By: #### 2 4344-4 ####[facility] LABCLIA [id number] [address] [address] [place] Oxyhemoglobin (BldV) [Mass fraction] 63 % Normal 60-85 [facility] Comment on above: Order Comment: Speci men Type: VENOUS BLOOD SPECIMENOrdering Facility: [facility] Address: [address] [place] [address] Performed By: #### 2 4344-4 ####[facility] LABCLIA [id number] [place] [address] [place] pH (BldV) 7.35 [pH] Normal 7.32-7.42 [facility] Comment on above: Order Comment: Speci men Type: VENOUS BLOOD SPECIMENOrdering Facility: [facility] Address: [address] [place], [place] [address] Performed By: #### 2 4344-4 ####[facility] LABCLIA [id number] [place] [address] [place] Potassium [Moles/Vol] 4.2 mmol/L Normal 3.5-5.0 [facility] Comment on above: Order Comment: Speci men Type: VENOUS BLOOD SPECIMENOrdering Facility: [facility] Address: [address] [place] [address] Performed By: #### 2 4344-4 ####[facility] LABIA [id number] [place] [address] [place] Sodium [Moles/Vol] 135 mmol/L Low 136-144 [facility] Comment on above: Order Comment: Speci men Type: VENOUS BLOOD SPECIMENOrdering Facility: [facility] Address: [address] [place] [address] Performed By: #### 2 4344-4 ####[facility] LABCLIA [id number] [place] [address] [place] BASE DEFICIT, VENOUS -1 mmol/L Normal -2-0 [facility] Comment on above: Order Comment: Speci men Type: VENOUS BLOOD SPECIMENOrdering Facility: [facility] Address: [address] [place] [address] Performed By: #### 2 4344-4 ####[facility] LABIA [id number] [place] [address] [place] Body temperature 98.6 [degF] Normal [facility] Comment on above: Order Comment: Speci men Type: VENOUS BLOOD SPECIMENOrdering Facility: [facility] Address: [address] [place] [address] Performed By: #### 2 4344-4 ####[facility] LABIA [id number] [place] [address] [place] Calcium.ionized (Bld) [Mass/Vol] 1.18 mmol/L Normal 1.08-1.30 [facility] Comment on above: Order Comment: Speci men Type: VENOUS BLOOD SPECIMENOrdering Facility: [facility] Address: [address] [place] [address] Performed By: #### 2 4344-4 ####[facility] LABIA [id number] [place] [address] [place] Calcium.ionized adjusted to pH 7.4 (BldA) [Moles/Vol] 1.14 mmol/L Normal 1.08-1.30 [facility] Comment on above: Order Comment: Speci men Type: VENOUS BLOOD SPECIMENOrdering Facility: [facility] Address: [address] [place] [address] Performed By: #### 2 4344-4 ####[facility] LABIA [id number] [place] [id number] [place] Carboxyhemoglobin (BldV) [Mass fraction] 1.6 % Normal 0.0-2.0 [facility] Comment on above: Order Comment: Speci men Type: VENOUS BLOOD SPECIMENOrdering Facility: [facility] Address: [address] [place] [address] Result Comment: Carb oxyhemoglobin Reference Range for Smokers: 2.0-8.0% Performed By: #### 2 4344-4 ####[facility] LABCLIA [id number] [place] [address] [place] CO2 (BldV) [Partial pressure] 48 mm[Hg] Normal 42-55 [facility] Comment on above: Order Comment: Speci men Type: VENOUS BLOOD SPECIMENOrdering Facility: [facility] Address: [address] [place] [address] Performed By: #### 2 4344-4 ####[facility] LABCLIA [id number] [place] [address] [place] Glucose [Mass/Vol] 108 mg/dL High 60-105 [facility] Comment on above: Order Comment: Speci men Type: VENOUS BLOOD SPECIMENOrdering Facility: [facility] Address: [address] [place] [address] Performed By: #### 2 4344-4 ####[facility] LABCLIA [id number] [place] [address] [place] HCO3 (Bld) [Moles/Vol] 24 mmol/L Normal 24-28 [facility] Comment on above: Order Comment: Speci men Type: VENOUS BLOOD SPECIMENOrdering Facility: [facility] Address: [address] [place] [address] Performed By: #### 2 4344-4 ####[facility] LABCLIA [id number] [place] [address] [place] Hematocrit (Bld) [Volume fraction] 25.8 % Low 39.0-51.0 [facility] Comment on above: Order Comment: Speci men Type: VENOUS BLOOD SPECIMENOrdering Facility: [facility] Address: [address] [place] [address] Performed By: #### 2 4344-4 ####[facility] LABCLIA [id number] [place] [address] [place] Hemoglobin (Bld) [Mass/Vol] 8.3 g/dL Low 13.0-17.0 [facility] Comment on above: Order Comment: Speci men Type: VENOUS BLOOD SPECIMENOrdering Facility: [facility] Address: [address] [place] [address] Performed By: #### 2 4344-4 ####[facility] LABCLIA [id number] [place] [address] [place] Lactate [Moles/Vol] 0.8 mmol/L Normal 0.5-2.2 [facility] Comment on above: Order Comment: Speci men Type: VENOUS BLOOD SPECIMENOrdering Facility: [facility] Address: [address] [place] [address] Performed By: #### 2 4344-4 ####[facility] LABCLIA [id number] [place] [address] [place] LITERS 2 Liters/min Normal [facility] Comment on above: Order Comment: Speci men Type: VENOUS BLOOD SPECIMENOrdering Facility: [facility] Address: [address] [place] [address] Performed By: #### 2 4344-4 ####[facility] LABCLIA [id number] [place] [address] [place] Methemoglobin (Bld) [Mass fraction] 0.8 % Normal 0.0-1.5 [facility] Comment on above: Order Comment: Speci men Type: VENOUS BLOOD SPECIMENOrdering Facility: [facility] Address: [address] [place] [address] Performed By: #### 2 4344-4 ####[facility] LABCLIA [id number] [address] [address] [place] O2 THERAPY NC = Nasal Cannula Normal [facility] Comment on above: Order Comment: Speci men Type: VENOUS BLOOD SPECIMENOrdering Facility: [facility] Address: [address] [place], [place] [address] Performed By: #### 2 4344-4 ####[facility] LABCLIA [id number] [place] [address] [place] Oxygen (BldV) [Partial pressure] 40 mm[Hg] Normal 35-45 [facility] Comment on above: Order Comment: Speci men Type: VENOUS BLOOD SPECIMENOrdering Facility: [facility] Address: [address] [place], [place] [address] Performed By: #### 2 4344-4 ####[facility]IA [id number] [place] [address] [place] Oxygen saturation in Venous blood 66 % Normal 60-85 [facility] Comment on above: Order Comment: Speci men Type: VENOUS BLOOD SPECIMENOrdering Facility: [facility] Address: [address] [place], [place] [address] Performed By: #### 2 4344-4 ####[facility] LABIA [id number] [place] [id number] [place] Oxyhemoglobin (BldV) [Mass fraction] 64 % Normal 60-85 [facility] Comment on above: Order Comment: Speci men Type: VENOUS BLOOD SPECIMENOrdering Facility: [facility] Address: [address] [place] [address] Performed By: #### 2 4344-4 ####[facility] LABCLIA [id number] [address] [address] [place] pH (BldV) 7.33 [pH] Normal 7.32-7.42 [facility] Comment on above: Order Comment: Speci men Type: VENOUS BLOOD SPECIMENOrdering Facility: [facility] Address: [address] [address] Performed By: #### 2 4344-4 ####[facility] LABCLIA [id number] [place] [address] [place] Potassium [Moles/Vol] 4.3 mmol/L Normal 3.5-5.0 [facility] Comment on above: Order Comment: Speci men Type: VENOUS BLOOD SPECIMENOrdering Facility: [facility] Address: [address] [place], [place] [address] Performed By: #### 2 4344-4 ####[facility] LABCLIA [id number] [place] [address] [place] Sodium [Moles/Vol] 136 mmol/L Normal 136-144 [facility] Comment on above: Order Comment: Speci men Type: VENOUS BLOOD SPECIMENOrdering Facility: [facility] Address: [address] [place] [address] Performed By: #### 2 4344-4 ####[facility] LABCLIA [id number] [place] [address] [place] Base excess Calc (BldV) [Moles/Vol] 1 mmol/L Normal 0-2 [facility] Comment on above: Order Comment: Speci men Type: VENOUS BLOOD SPECIMENOrdering Facility: [facility] Address: [address] [place], [place] [address] Performed By: #### 2 4344-4 ####[facility] LABCLIA [id number] [place] [id number] [place] Body temperature 98.6 [degF] Normal [facility] Comment on above: Order Comment: Speci men Type: VENOUS BLOOD SPECIMENOrdering Facility: [facility] Address: [address] [place], [place] [address] Performed By: #### 2 4344-4 ####[facility] LABCLIA [id number] [place] [address] [place] Calcium.ionized (Bld) [Mass/Vol] 1.23 mmol/L Normal 1.08-1.30 [facility] Comment on above: Order Comment: Speci men Type: VENOUS BLOOD SPECIMENOrdering Facility: [facility] Address: [address] [place] [address] Performed By: #### 2 4344-4 ####[facility] LABIA [id number] [place] [address] [place] Calcium.ionized adjusted to pH 7.4 (BldA) [Moles/Vol] 1.17 mmol/L Normal 1.08-1.30 [facility] Comment on above: Order Comment: Speci men Type: VENOUS BLOOD SPECIMENOrdering Facility: [facility] Address: [address] [place] [address] Performed By: #### 2 4344-4 ####[facility] [id number] [place] [address] [place] Carboxyhemoglobin (BldV) [Mass fraction] 1.1 % Normal 0.0-2.0 [facility] Comment on above: Order Comment: Speci men Type: VENOUS BLOOD SPECIMENOrdering Facility: [facility] Address: [address] [place] [address] Result Comment: Carb oxyhemoglobin Reference Range for Smokers: 2.0-8.0% Performed By: #### 2 4344-4 ####[facility]IA [id number] [place] [address] [place] CO2 (BldV) [Partial pressure] 57 mm[Hg] High 42-55 [facility] Comment on above: Order Comment: Speci men Type: VENOUS BLOOD SPECIMENOrdering Facility: [facility] Address: [address] [place] [address] Performed By: #### 2 4344-4 ####[facility]IA [id number] [place] [address] [place] Glucose [Mass/Vol] 87 mg/dL Normal 60-105 [facility] Comment on above: Order Comment: Speci men Type: VENOUS BLOOD SPECIMENOrdering Facility: [facility] Address: [address] [place] [address] Performed By: #### 2 4344-4 ####[facility] LABCLIA [id number] [place] [address] [place] HCO3 (Bld) [Moles/Vol] 27 mmol/L Normal 24-28 [facility] Comment on above: Order Comment: Speci men Type: VENOUS BLOOD SPECIMENOrdering Facility: [facility] Address: [address] [place] [address] Performed By: #### 2 4344-4 ####[facility] LABCLIA [id number] [place] [address] [place] Hematocrit (Bld) [Volume fraction] 27.6 % Low 39.0-51.0 [facility] Comment on above: Order Comment: Speci men Type: VENOUS BLOOD SPECIMENOrdering Facility: [facility] Address: [address] [place] [address] Performed By: #### 2 4344-4 ####[facility] LABCLIA [id number] [place] [address] [place] Hemoglobin (Bld) [Mass/Vol] 8.9 g/dL Low 13.0-17.0 [facility] Comment on above: Order Comment: Speci men Type: VENOUS BLOOD SPECIMENOrdering Facility: [facility] Address: [address] [place] [address] Performed By: #### 2 4344-4 ####[facility] LABCLIA [id number] [place] [id number] [place] Lactate [Moles/Vol] 1.5 mmol/L Normal 0.5-2.2 [facility] Comment on above: Order Comment: Speci men Type: VENOUS BLOOD SPECIMENOrdering Facility: [facility] Address: [address] [address] Performed By: #### 2 4344-4 ####[facility] LABCLIA [id number] [address] [address] [place] LITERS 2 Liters/min Normal [facility] Comment on above: Order Comment: Speci men Type: VENOUS BLOOD SPECIMENOrdering Facility: [facility] Address: [address] [address] Performed By: #### 2 4344-4 ####[facility] LABCLIA [id number] [place] [address] [place] Methemoglobin (Bld) [Mass fraction] 1.4 % Normal 0.0-1.5 [facility] Comment on above: Order Comment: Speci men Type: VENOUS BLOOD SPECIMENOrdering Facility: [facility] Address: [address] [place], [place] [address] Performed By: #### 2 4344-4 ####[facility]IA [id number] [place] [address] [place] O2 THERAPY NC = Nasal Cannula Normal [facility] Comment on above: Order Comment: Speci men Type: VENOUS BLOOD SPECIMENOrdering Facility: [facility] Address: [address] [id number] Performed By: #### 2 4344-4 ####[facility] LABCLIA [id number] [address] [address] [place] Oxygen (BldV) [Partial pressure] 40 mm[Hg] Normal 35-45 [facility] Comment on above: Order Comment: Speci men Type: VENOUS BLOOD SPECIMENOrdering Facility: [facility] Address: [address] [id number] Performed By: #### 2 4344-4 ####[facility] LABCLIA [id number] [address] [id number] [address] [place] Oxygen saturation in Venous blood 65 % Normal 60-85 [facility] Comment on above: Order Comment: Speci men Type: VENOUS BLOOD SPECIMENOrdering Facility: [facility] Address: [address] [place], [place] [address] Performed By: #### 2 4344-4 ####[facility] LABCLIA [id number] [address] [address] [place] Oxyhemoglobin (BldV) [Mass fraction] 63 % Normal 60-85 [facility] Comment on above: Order Comment: Speci men Type: VENOUS BLOOD SPECIMENOrdering Facility: [facility] Address: [address] [place] [address] Performed By: #### 2 4344-4 ####[facility] LABCLIA [id number] [place] [address] [place] pH (BldV) 7.30 [pH] Low 7.32-7.42 [facility] Comment on above: Order Comment: Speci men Type: VENOUS BLOOD SPECIMENOrdering Facility: [facility] Address: [address] [place] [address] Performed By: #### 2 4344-4 ####[facility] LABCLIA [id number] [place] [address] [place] Potassium [Moles/Vol] 4.1 mmol/L Normal 3.5-5.0 [facility] Comment on above: Order Comment: Speci men Type: VENOUS BLOOD SPECIMENOrdering Facility: [facility] Address: [address] [place] [address] Performed By: #### 2 4344-4 ####[facility] LABCLIA [id number] [place] [address] [place] Sodium [Moles/Vol] 135 mmol/L Low 136-144 [facility] Comment on above: Order Comment: Speci men Type: VENOUS BLOOD SPECIMENOrdering Facility: [facility] Address: [address] [place] [address] Performed By: #### 2 4344-4 ####[facility] LABCLIA [id number] [place] [address] [place] Base excess Calc (BldV) [Moles/Vol] 1 mmol/L Normal 0-2 [facility] Comment on above: Order Comment: Speci men Type: VENOUS BLOOD SPECIMENOrdering Facility: [facility] Address: [address] [place] [address] Performed By: #### 2 4344-4 ####[facility] [id number] [place] [address] [place] Body temperature 98.6 [degF] Normal [facility] Comment on above: Order Comment: Speci men Type: VENOUS BLOOD SPECIMENOrdering Facility: [facility] Address: [address] [place] [address] Performed By: #### 2 4344-4 ####[facility]IA [id number] [place] [address] [place] Calcium.ionized (Bld) [Mass/Vol] 1.21 mmol/L Normal 1.08-1.30 [facility] Comment on above: Order Comment: Speci men Type: VENOUS BLOOD SPECIMENOrdering Facility: [facility] Address: [address] [place] [address] Performed By: #### 2 4344-4 ####[facility]IA [id number] [place] [address] [place] Calcium.ionized adjusted to pH 7.4 (BldA) [Moles/Vol] 1.18 mmol/L Normal 1.08-1.30 [facility] Comment on above: Order Comment: Speci men Type: VENOUS BLOOD SPECIMENOrdering Facility: [facility] Address: [address] [place] [address] Performed By: #### 2 4344-4 ####[facility] [id number] [place] [address] [place] Carboxyhemoglobin (BldV) [Mass fraction] 1.1 % Normal 0.0-2.0 [facility] Comment on above: Order Comment: Speci men Type: VENOUS BLOOD SPECIMENOrdering Facility: [facility] Address: [address] [place] [address] Result Comment: Carb oxyhemoglobin Reference Range for Smokers: 2.0-8.0% Performed By: #### 2 4344-4 ####[facility] LABCLIA [id number] [place] [address] [place] CO2 (BldV) [Partial pressure] 48 mm[Hg] Normal 42-55 [facility] Comment on above: Order Comment: Speci men Type: VENOUS BLOOD SPECIMENOrdering Facility: [facility] Address: [address] [place] [address] Performed By: #### 2 4344-4 ####[facility] LABCLIA [id number] [place] [address] [place] Glucose [Mass/Vol] 149 mg/dL High 60-105 [facility] Comment on above: Order Comment: Speci men Type: VENOUS BLOOD SPECIMENOrdering Facility: [facility] Address: [address] [place] [address] Performed By: #### 2 4344-4 ####[facility] [id number] [place] [address] [place] HCO3 (Bld) [Moles/Vol] 26 mmol/L Normal 24-28 [facility] Comment on above: Order Comment: Speci men Type: VENOUS BLOOD SPECIMENOrdering Facility: [facility] Address: [address] [place] [address] Performed By: #### 2 4344-4 ####[facility] LABCLIA [id number] [place] [address] [place] Hematocrit (Bld) [Volume fraction] 26.5 % Low 39.0-51.0 [facility] Comment on above: Order Comment: Speci men Type: VENOUS BLOOD SPECIMENOrdering Facility: [facility] Address: [address] [place] [address] Performed By: #### 2 4344-4 ####[facility] LABCLIA [id number] [place] [address] [place] Hemoglobin (Bld) [Mass/Vol] 8.5 g/dL Low 13.0-17.0 [facility] Comment on above: Order Comment: Speci men Type: VENOUS BLOOD SPECIMENOrdering Facility: [facility] Address: [address] [place] [address] Performed By: #### 2 4344-4 ####[facility] LABCLIA [id number] [place] [address] [place] Lactate [Moles/Vol] 1.2 mmol/L Normal 0.5-2.2 [facility] Comment on above: Order Comment: Speci men Type: VENOUS BLOOD SPECIMENOrdering Facility: [facility] Address: [address] [place] [address] Performed By: #### 2 4344-4 ####[facility] LABCLIA [id number] [place] [address] [place] LITERS 2 Liters/min Normal [facility] Comment on above: Order Comment: Speci men Type: VENOUS BLOOD SPECIMENOrdering Facility: [facility] Address: [address] [place] [address] Performed By: #### 2 4344-4 ####[facility] LABCLIA [id number] [place] [address] [place] Methemoglobin (Bld) [Mass fraction] 0.4 % Normal 0.0-1.5 [facility] Comment on above: Order Comment: Speci men Type: VENOUS BLOOD SPECIMENOrdering Facility: [facility] Address: [address] [place] [address] Performed By: #### 2 4344-4 ####[facility] LABCLIA [id number] [address] [address] [place] O2 THERAPY NC = Nasal Cannula Normal [facility] Comment on above: Order Comment: Speci men Type: VENOUS BLOOD SPECIMENOrdering Facility: [facility] Address: [address] [place], [place] [address] Performed By: #### 2 4344-4 ####[facility] LABCLIA [id number] [address] [address] [place] Oxygen (BldV) [Partial pressure] 34 mm[Hg] Low 35-45 [facility] Comment on above: Order Comment: Speci men Type: VENOUS BLOOD SPECIMENOrdering Facility: [facility] Address: [address] [place], [place] [address] Performed By: #### 2 4344-4 ####[facility] LABCLIA [id number] [place] [address] [place] Oxygen saturation in Venous blood 55 % Low 60-85 [facility] Comment on above: Order Comment: Speci men Type: VENOUS BLOOD SPECIMENOrdering Facility: [facility] Address: [address] [place], [place] [address] Performed By: #### 2 4344-4 ####[facility]IA [id number] [address] [address] [place] Oxyhemoglobin (BldV) [Mass fraction] 54 % Low 60-85 [facility] Comment on above: Order Comment: Speci men Type: VENOUS BLOOD SPECIMENOrdering Facility: [facility] Address: [address] [place], [place] [address] Performed By: #### 2 4344-4 ####[facility] LABCLIA [id number] [address] [address] [place] pH (BldV) 7.36 [pH] Normal 7.32-7.42 [facility] Comment on above: Order Comment: Speci men Type: VENOUS BLOOD SPECIMENOrdering Facility: [facility] Address: [address] [address] Performed By: #### 2 4344-4 ####[facility] LABCLIA [id number] [address] [address] [place] Potassium [Moles/Vol] 4.6 mmol/L Normal 3.5-5.0 [facility] Comment on above: Order Comment: Speci men Type: VENOUS BLOOD SPECIMENOrdering Facility: [facility] Address: [address] [place], [place] [address] Performed By: #### 2 4344-4 ####[facility] LABCLIA [id number] [place] [address] [place] Sodium [Moles/Vol] 135 mmol/L Low 136-144 [facility] Comment on above: Order Comment: Speci men Type: VENOUS BLOOD SPECIMENOrdering Facility: [facility] Address: [address] [place], [place] [address] Performed By: #### 2 4344-4 ####[facility] LABCLIA [id number] [place] [address] [place] Base excess Calc (BldV) [Moles/Vol] 1 mmol/L Normal 0-2 [facility] Comment on above: Order Comment: Speci men Type: VENOUS BLOOD SPECIMENOrdering Facility: [facility] Address: [address] [place], [place] [address] Performed By: #### 2 4344-4 ####[facility] LABCLIA [id number] [place] [address] [place] Body temperature 98.6 [degF] Normal [facility] Comment on above: Order Comment: Speci men Type: VENOUS BLOOD SPECIMENOrdering Facility: [facility] Address: [address] [place], [place] [address] Performed By: #### 2 4344-4 ####[facility] LABCLIA [id number] [place] [address] [place] Calcium.ionized (Bld) [Mass/Vol] 1.22 mmol/L Normal 1.08-1.30 [facility] Comment on above: Order Comment: Speci men Type: VENOUS BLOOD SPECIMENOrdering Facility: [facility] Address: [address] [place] [address] Performed By: #### 2 4344-4 ####[facility]IA [id number] [place] [address] [place] Calcium.ionized adjusted to pH 7.4 (BldA) [Moles/Vol] 1.18 mmol/L Normal 1.08-1.30 [facility] Comment on above: Order Comment: Speci men Type: VENOUS BLOOD SPECIMENOrdering Facility: [facility] Address: [address] [place] [address] Performed By: #### 2 4344-4 ####[facility]IA [id number] [place] [address] [place] Carboxyhemoglobin (BldV) [Mass fraction] 1.4 % Normal 0.0-2.0 [facility] Comment on above: Order Comment: Speci men Type: VENOUS BLOOD SPECIMENOrdering Facility: [facility] Address: [address] [place] [address] Result Comment: Carb oxyhemoglobin Reference Range for Smokers: 2.0-8.0% Performed By: #### 2 4344-4 ####[facility]IA [id number] [place] [address] [place] CO2 (BldV) [Partial pressure] 49 mm[Hg] Normal 42-55 [facility] Comment on above: Order Comment: Speci men Type: VENOUS BLOOD SPECIMENOrdering Facility: [facility] Address: [address] [place] [address] Performed By: #### 2 4344-4 ####[facility] LABCLIA [id number] [place] [address] [place] Glucose [Mass/Vol] 179 mg/dL High 60-105 [facility] Comment on above: Order Comment: Speci men Type: VENOUS BLOOD SPECIMENOrdering Facility: [facility] Address: [address] [place] [address] Performed By: #### 2 4344-4 ####[facility] LABCLIA [id number] [place] [address] [place] HCO3 (Bld) [Moles/Vol] 26 mmol/L Normal 24-28 [facility] Comment on above: Order Comment: Speci men Type: VENOUS BLOOD SPECIMENOrdering Facility: [facility] Address: [address] [place] [address] Performed By: #### 2 4344-4 ####[facility] LABCLIA [id number] [place] [address] [place] Hematocrit (Bld) [Volume fraction] 25.3 % Low 39.0-51.0 [facility] Comment on above: Order Comment: Speci men Type: VENOUS BLOOD SPECIMENOrdering Facility: [facility] Address: [address] [place] [address] Performed By: #### 2 4344-4 ####[facility] LABCLIA [id number] [place] [address] [place] Hemoglobin (Bld) [Mass/Vol] 8.1 g/dL Low 13.0-17.0 [facility] Comment on above: Order Comment: Speci men Type: VENOUS BLOOD SPECIMENOrdering Facility: [facility] Address: [address] [place] [address] Performed By: #### 2 4344-4 ####[facility] LABCLIA [id number] [place] [address] [place] Lactate [Moles/Vol] 1.1 mmol/L Normal 0.5-2.2 [facility] Comment on above: Order Comment: Speci men Type: VENOUS BLOOD SPECIMENOrdering Facility: [facility] Address: [address] [address] Performed By: #### 2 4344-4 ####[facility] LABCLIA [id number] [address] [address] [place] LITERS 2 Liters/min Normal [facility] Comment on above: Order Comment: Speci men Type: VENOUS BLOOD SPECIMENOrdering Facility: [facility] Address: [address] [place], [place] [address] Performed By: #### 2 4344-4 ####[facility]IA [id number] [place] [address] [place] Methemoglobin (Bld) [Mass fraction] 0.7 % Normal 0.0-1.5 [facility] Comment on above: Order Comment: Speci men Type: VENOUS BLOOD SPECIMENOrdering Facility: [facility] Address: [address] [place] [address] Performed By: #### 2 4344-4 ####[facility] LABIA [id number] [place] [address] [place] O2 THERAPY NC = Nasal Cannula Normal [facility] Comment on above: Order Comment: Speci men Type: VENOUS BLOOD SPECIMENOrdering Facility: [facility] Address: [address] [place], [place] [address] Performed By: #### 2 4344-4 ####[facility] LABCLIA [id number] [place] [id number] [place] Oxygen (BldV) [Partial pressure] 33 mm[Hg] Low 35-45 [facility] Comment on above: Order Comment: Speci men Type: VENOUS BLOOD SPECIMENOrdering Facility: [facility] Address: [address] [place], [place] [address] Performed By: #### 2 4344-4 ####[facility] LABCLIA [id number] [address] [address] [place] Oxygen saturation in Venous blood 55 % Low 60-85 [facility] Comment on above: Order Comment: Speci men Type: VENOUS BLOOD SPECIMENOrdering Facility: [facility] Address: [address] [place] [address] Performed By: #### 2 4344-4 ####[facility] LABCLIA [id number] [address] [address] [place] Oxyhemoglobin (BldV) [Mass fraction] 54 % Low 60-85 [facility] Comment on above: Order Comment: Speci men Type: VENOUS BLOOD SPECIMENOrdering Facility: [facility] Address: [address] [place] [address] Performed By: #### 2 4344-4 ####[facility] LABCLIA [id number] [place] [address] [place] pH (BldV) 7.35 [pH] Normal 7.32-7.42 [facility] Comment on above: Order Comment: Speci men Type: VENOUS BLOOD SPECIMENOrdering Facility: [facility] Address: [address] [place] [address] Performed By: #### 2 4344-4 ####[facility] LABCLIA [id number] [address] [address] [place] Potassium [Moles/Vol] 4.5 mmol/L Normal 3.5-5.0 [facility] Comment on above: Order Comment: Speci men Type: VENOUS BLOOD SPECIMENOrdering Facility: [facility] Address: [address] [place] [address] Performed By: #### 2 4344-4 ####[facility] LABCLIA [id number] [place] [address] [place] Sodium [Moles/Vol] 134 mmol/L Low 136-144 [facility] Comment on above: Order Comment: Speci men Type: VENOUS BLOOD SPECIMENOrdering Facility: [facility] Address: [address] [place] [address] Performed By: #### 2 4344-4 ####[facility] LABCLIA [id number] [place] [address] [place] Base excess Calc (BldV) [Moles/Vol] 1 mmol/L Normal 0-2 [facility] Comment on above: Order Comment: Speci men Type: VENOUS BLOOD SPECIMENOrdering Facility: [facility] Address: [address] [place] [address] Performed By: #### 2 4344-4 ####[facility] LABIA [id number] [place] [address] [place] Body temperature 98.6 [degF] Normal [facility] Comment on above: Order Comment: Speci men Type: VENOUS BLOOD SPECIMENOrdering Facility: [facility] Address: [address] [place] [address] Performed By: #### 2 4344-4 ####[facility] LABIA [id number] [place] [address] [place] Calcium.ionized (Bld) [Mass/Vol] 1.18 mmol/L Normal 1.08-1.30 [facility] Comment on above: Order Comment: Speci men Type: VENOUS BLOOD SPECIMENOrdering Facility: [facility] Address: [address] [place] [address] Performed By: #### 2 4344-4 ####[facility]IA [id number] [place] [address] [place] Calcium.ionized adjusted to pH 7.4 (BldA) [Moles/Vol] 1.17 mmol/L Normal 1.08-1.30 [facility] Comment on above: Order Comment: Speci men Type: VENOUS BLOOD SPECIMENOrdering Facility: [facility] Address: [address] [place] [address] Performed By: #### 2 4344-4 ####[facility] LABCLIA [id number] [place] [address] [place] Carboxyhemoglobin (BldV) [Mass fraction] 1.5 % Normal 0.0-2.0 [facility] Comment on above: Order Comment: Speci men Type: VENOUS BLOOD SPECIMENOrdering Facility: [facility] Address: [address] [place] [address] Result Comment: Carb oxyhemoglobin Reference Range for Smokers: 2.0-8.0% Performed By: #### 2 4344-4 ####[facility] LABCLIA [id number] [place] [address] [place] CO2 (BldV) [Partial pressure] 46 mm[Hg] Normal 42-55 [facility] Comment on above: Order Comment: Speci men Type: VENOUS BLOOD SPECIMENOrdering Facility: [facility] Address: [address] [place] [address] Performed By: #### 2 4344-4 ####[facility] LABCLIA [id number] [place] [address] [place] Glucose [Mass/Vol] 135 mg/dL High 60-105 [facility] Comment on above: Order Comment: Speci men Type: VENOUS BLOOD SPECIMENOrdering Facility: [facility] Address: [address] [place] [address] Performed By: #### 2 4344-4 ####[facility] LABCLIA [id number] [place] [address] [place] HCO3 (Bld) [Moles/Vol] 26 mmol/L Normal 24-28 [facility] Comment on above: Order Comment: Speci men Type: VENOUS BLOOD SPECIMENOrdering Facility: [facility] Address: [address] [place] [address] Performed By: #### 2 4344-4 ####[facility] LABCLIA [id number] [place] [address] [place] Hematocrit (Bld) [Volume fraction] 26.6 % Low 39.0-51.0 [facility] Comment on above: Order Comment: Speci men Type: VENOUS BLOOD SPECIMENOrdering Facility: [facility] Address: [address] [place] [address] Performed By: #### 2 4344-4 ####[facility] LABCLIA [id number] [place] [address] [place] Hemoglobin (Bld) [Mass/Vol] 8.6 g/dL Low 13.0-17.0 [facility] Comment on above: Order Comment: Speci men Type: VENOUS BLOOD SPECIMENOrdering Facility: [facility] Address: [address] [place] [address] Performed By: #### 2 4344-4 ####[facility] LABCLIA [id number] [place] [address] [place] Lactate [Moles/Vol] 1.3 mmol/L Normal 0.5-2.2 [facility] Comment on above: Order Comment: Speci men Type: VENOUS BLOOD SPECIMENOrdering Facility: [facility] Address: [address] [place] [address] Performed By: #### 2 4344-4 ####[facility] LABIA [id number] [place] [address] [place] Methemoglobin (Bld) [Mass fraction] 0.6 % Normal 0.0-1.5 [facility] Comment on above: Order Comment: Speci men Type: VENOUS BLOOD SPECIMENOrdering Facility: [facility] Address: [address] [place] [address] Performed By: #### 2 4344-4 ####[facility] LABIA [id number] [place] [address] [place] O2 THERAPY NC = Nasal Cannula Normal [facility] Comment on above: Order Comment: Speci men Type: VENOUS BLOOD SPECIMENOrdering Facility: [facility] Address: [address] [place] [address] Performed By: #### 2 4344-4 ####[facility] LABCLIA [id number] [place] [address] [place] Oxygen (BldV) [Partial pressure] 34 mm[Hg] Low 35-45 [facility] Comment on above: Order Comment: Speci men Type: VENOUS BLOOD SPECIMENOrdering Facility: [facility] Address: [address] [place] [address] Performed By: #### 2 4344-4 ####[facility] LABCLIA [id number] [place] [address] [place] Oxygen saturation in Venous blood 58 % Low 60-85 [facility] Comment on above: Order Comment: Speci men Type: VENOUS BLOOD SPECIMENOrdering Facility: [facility] Address: [address] [place] [address] Performed By: #### 2 4344-4 ####[facility] LABCLIA [id number] [place] [address] [place] Oxyhemoglobin (BldV) [Mass fraction] 57 % Low 60-85 [facility] Comment on above: Order Comment: Speci men Type: VENOUS BLOOD SPECIMENOrdering Facility: [facility] Address: [address] [place] [address] Performed By: #### 2 4344-4 ####[facility] LABCLIA [id number] [place] [address] [place] pH (BldV) 7.37 [pH] Normal 7.32-7.42 [facility] Comment on above: Order Comment: Speci men Type: VENOUS BLOOD SPECIMENOrdering Facility: [facility] Address: [address] [place] [address] Performed By: #### 2 4344-4 ####[facility] LABCLIA [id number] [place] [address] [place] Potassium [Moles/Vol] 4.6 mmol/L Normal 3.5-5.0 [facility] Comment on above: Order Comment: Speci men Type: VENOUS BLOOD SPECIMENOrdering Facility: [facility] Address: [address] [place] [address] Performed By: #### 2 4344-4 ####[facility] LABCLIA [id number] [place] [address] [place] Sodium [Moles/Vol] 135 mmol/L Low 136-144 [facility] Comment on above: Order Comment: Speci men Type: VENOUS BLOOD SPECIMENOrdering Facility: [facility] Address: [address] [place] [address] Performed By: #### 2 4344-4 ####[facility] LABIA [id number] [place] [address] [place] Base excess Calc (BldV) [Moles/Vol] 3 mmol/L High 0-2 [facility] Comment on above: Order Comment: Speci men Type: VENOUS BLOOD SPECIMENOrdering Facility: [facility] Address: [address] [place] [address] Performed By: #### 2 4344-4 ####[facility] LABIA [id number] [place] [address] [place] Body temperature 98.6 [degF] Normal [facility] Comment on above: Order Comment: Speci men Type: VENOUS BLOOD SPECIMENOrdering Facility: [facility] Address: [address] [place] [address] Performed By: #### 2 4344-4 ####[facility] LABIA [id number] [place] [address] [place] Calcium.ionized (Bld) [Mass/Vol] 1.22 mmol/L Normal 1.08-1.30 [facility] Comment on above: Order Comment: Speci men Type: VENOUS BLOOD SPECIMENOrdering Facility: [facility] Address: [address] [place] [address] Performed By: #### 2 4344-4 ####[facility] LABIA [id number] [place] [address] [place] Calcium.ionized adjusted to pH 7.4 (BldA) [Moles/Vol] 1.19 mmol/L Normal 1.08-1.30 [facility] Comment on above: Order Comment: Speci men Type: VENOUS BLOOD SPECIMENOrdering Facility: [facility] Address: [address] [place] [address] Performed By: #### 2 4344-4 ####[facility] LABIA [id number] [place] [address] [place] Carboxyhemoglobin (BldV) [Mass fraction] 1.3 % Normal 0.0-2.0 [facility] Comment on above: Order Comment: Speci men Type: VENOUS BLOOD SPECIMENOrdering Facility: [facility] Address: [address] [place] [address] Result Comment: Carb oxyhemoglobin Reference Range for Smokers: 2.0-8.0% Performed By: #### 2 4344-4 ####[facility] LABIA [id number] [place] [address] [place] CO2 (BldV) [Partial pressure] 50 mm[Hg] Normal 42-55 [facility] Comment on above: Order Comment: Speci men Type: VENOUS BLOOD SPECIMENOrdering Facility: [facility] Address: [address] [place] [address] Performed By: #### 2 4344-4 ####[facility] LABIA [id number] [place] [address] [place] Glucose [Mass/Vol] 119 mg/dL High 60-105 [facility] Comment on above: Order Comment: Speci men Type: VENOUS BLOOD SPECIMENOrdering Facility: [facility] Address: [address] [place] [address] Performed By: #### 2 4344-4 ####[facility] LABCLIA [id number] [place] [address] [place] HCO3 (Bld) [Moles/Vol] 28 mmol/L Normal 24-28 [facility] Comment on above: Order Comment: Speci men Type: VENOUS BLOOD SPECIMENOrdering Facility: [facility] Address: [address] [place] [address] Performed By: #### 2 4344-4 ####[facility] LABCLIA [id number] [place] [address] [place] Hematocrit (Bld) [Volume fraction] 25.3 % Low 39.0-51.0 [facility] Comment on above: Order Comment: Speci men Type: VENOUS BLOOD SPECIMENOrdering Facility: [facility] Address: [address] [place] [address] Performed By: #### 2 4344-4 ####[facility] LABCLIA [id number] [place] [address] [place] Hemoglobin (Bld) [Mass/Vol] 8.1 g/dL Low 13.0-17.0 [facility] Comment on above: Order Comment: Speci men Type: VENOUS BLOOD SPECIMENOrdering Facility: [facility] Address: [address] [place] [address] Performed By: #### 2 4344-4 ####[facility] LABCLIA [id number] [place] [address] [place] Lactate [Moles/Vol] 1.8 mmol/L Normal 0.5-2.2 [facility] Comment on above: Order Comment: Speci men Type: VENOUS BLOOD SPECIMENOrdering Facility: [facility] Address: [address] [place] [address] Performed By: #### 2 4344-4 ####[facility] LABCLIA [id number] [place] [address] [place] LITERS 2 Liters/min Normal [facility] Comment on above: Order Comment: Speci men Type: VENOUS BLOOD SPECIMENOrdering Facility: [facility] Address: [address] [place] [address] Performed By: #### 2 4344-4 ####[facility] LABCLIA [id number] [address] [address] [place] Methemoglobin (Bld) [Mass fraction] 0.6 % Normal 0.0-1.5 [facility] Comment on above: Order Comment: Speci men Type: VENOUS BLOOD SPECIMENOrdering Facility: [facility] Address: [address] [place] [address] Performed By: #### 2 4344-4 ####[facility] LABCLIA [id number] [place] [address] [place] O2 THERAPY NC = Nasal Cannula Normal [facility] Comment on above: Order Comment: Speci men Type: VENOUS BLOOD SPECIMENOrdering Facility: [facility] Address: [address] [place] [address] Performed By: #### 2 4344-4 ####[facility] LABCLIA [id number] [place] [address] [place] Oxygen (BldV) [Partial pressure] 36 mm[Hg] Normal 35-45 [facility] Comment on above: Order Comment: Speci men Type: VENOUS BLOOD SPECIMENOrdering Facility: [facility] Address: [address] [place] [address] Performed By: #### 2 4344-4 ####[facility] LABCLIA [id number] [place] [address] [place] Oxygen saturation in Venous blood 64 % Normal 60-85 [facility] Comment on above: Order Comment: Speci men Type: VENOUS BLOOD SPECIMENOrdering Facility: [facility] Address: [address] [place], [place] [address] Performed By: #### 2 4344-4 ####[facility] LABCLIA [id number] [place] [address] [place] Oxyhemoglobin (BldV) [Mass fraction] 63 % Normal 60-85 [facility] Comment on above: Order Comment: Speci men Type: VENOUS BLOOD SPECIMENOrdering Facility: [facility] Address: [address] [place] [address] Performed By: #### 2 4344-4 ####[facility] LABCLIA [id number] [place] [address] [place] pH (BldV) 7.36 [pH] Normal 7.32-7.42 [facility] Comment on above: Order Comment: Speci men Type: VENOUS BLOOD SPECIMENOrdering Facility: [facility] Address: [address] [place] [address] Performed By: #### 2 4344-4 ####[facility] LABIA [id number] [place] [address] [place] Potassium [Moles/Vol] 4.6 mmol/L Normal 3.5-5.0 [facility] Comment on above: Order Comment: Speci men Type: VENOUS BLOOD SPECIMENOrdering Facility: [facility] Address: [address] [place] [address] Performed By: #### 2 4344-4 ####[facility] LABIA [id number] [place] [address] [place] Sodium [Moles/Vol] 135 mmol/L Low 136-144 [facility] Comment on above: Order Comment: Speci men Type: VENOUS BLOOD SPECIMENOrdering Facility: [facility] Address: [address] [place] [address] Performed By: #### 2 4344-4 ####[facility] LABCLIA [id number] [place] [address] [place] Base excess Calc (BldV) [Moles/Vol] 2 mmol/L Normal 0-2 [facility] Comment on above: Order Comment: Speci men Type: VENOUS BLOOD SPECIMENOrdering Facility: [facility] Address: [address] [place] [address] Performed By: #### 2 4344-4 ####[facility] LABIA [id number] [place] [id number] [place] Body temperature 98.6 [degF] Normal [facility] Comment on above: Order Comment: Speci men Type: VENOUS BLOOD SPECIMENOrdering Facility: [facility] Address: [address] [place] [address] Performed By: #### 2 4344-4 ####[facility] [id number] [place] [address] [place] Calcium.ionized (Bld) [Mass/Vol] 1.19 mmol/L Normal 1.08-1.30 [facility] Comment on above: Order Comment: Speci men Type: VENOUS BLOOD SPECIMENOrdering Facility: [facility] Address: [address] [place] [address] Performed By: #### 2 4344-4 ####[facility] [id number] [place] [address] [place] Calcium.ionized adjusted to pH 7.4 (BldA) [Moles/Vol] 1.15 mmol/L Normal 1.08-1.30 [facility] Comment on above: Order Comment: Speci men Type: VENOUS BLOOD SPECIMENOrdering Facility: [facility] Address: [address] [place], [place] [address] Performed By: #### 2 4344-4 ####[facility] [id number] [place] [address] [place] Carboxyhemoglobin (BldV) [Mass fraction] 1.6 % Normal 0.0-2.0 [facility] Comment on above: Order Comment: Speci men Type: VENOUS BLOOD SPECIMENOrdering Facility: [facility] Address: [address] [place], [place] [address] Result Comment: Carb oxyhemoglobin Reference Range for Smokers: 2.0-8.0% Performed By: #### 2 4344-4 ####[facility] LABCLIA [id number] [place] [address] [place] CO2 (BldV) [Partial pressure] 53 mm[Hg] Normal 42-55 [facility] Comment on above: Order Comment: Speci men Type: VENOUS BLOOD SPECIMENOrdering Facility: [facility] Address: [address] [place] [address] Performed By: #### 2 4344-4 ####[facility] LABCLIA [id number] [place] [address] [place] Glucose [Mass/Vol] 167 mg/dL High 60-105 [facility] Comment on above: Order Comment: Speci men Type: VENOUS BLOOD SPECIMENOrdering Facility: [facility] Address: [address] [place] [address] Performed By: #### 2 4344-4 ####[facility] LABCLIA [id number] [place] [address] [place] HCO3 (Bld) [Moles/Vol] 28 mmol/L Normal 24-28 [facility] Comment on above: Order Comment: Speci men Type: VENOUS BLOOD SPECIMENOrdering Facility: [facility] Address: [address] [place] [address] Performed By: #### 2 4344-4 ####[facility] LABCLIA [id number] [place] [address] [place] Hematocrit (Bld) [Volume fraction] 26.2 % Low 39.0-51.0 [facility] Comment on above: Order Comment: Speci men Type: VENOUS BLOOD SPECIMENOrdering Facility: [facility] Address: [address] [place] [address] Performed By: #### 2 4344-4 ####[facility] LABCLIA [id number] [place] [address] [place] Hemoglobin (Bld) [Mass/Vol] 8.4 g/dL Low 13.0-17.0 [facility] Comment on above: Order Comment: Speci men Type: VENOUS BLOOD SPECIMENOrdering Facility: [facility] Address: [address] [place] [address] Performed By: #### 2 4344-4 ####[facility] LABCLIA [id number] [place] [address] [place] Lactate [Moles/Vol] 1.5 mmol/L Normal 0.5-2.2 [facility] Comment on above: Order Comment: Speci men Type: VENOUS BLOOD SPECIMENOrdering Facility: [facility] Address: [address] [place] [address] Performed By: #### 2 4344-4 ####[facility] LABCLIA [id number] [place] [address] [place] LITERS 2 Liters/min Normal [facility] Comment on above: Order Comment: Speci men Type: VENOUS BLOOD SPECIMENOrdering Facility: [facility] Address: [address] [place] [address] Performed By: #### 2 4344-4 ####[facility] LABCLIA [id number] [place] [address] [place] Methemoglobin (Bld) [Mass fraction] 0.5 % Normal 0.0-1.5 [facility] Comment on above: Order Comment: Speci men Type: VENOUS BLOOD SPECIMENOrdering Facility: [facility] Address: [address] [place] [address] Performed By: #### 2 4344-4 ####[facility] LABCLIA [id number] [place] [address] [place] O2 THERAPY NC = Nasal Cannula Normal [facility] Comment on above: Order Comment: Speci men Type: VENOUS BLOOD SPECIMENOrdering Facility: [facility] Address: [address] [place] [address] Performed By: #### 2 4344-4 ####[facility] LABCLIA [id number] [address] [address] [place] Oxygen (BldV) [Partial pressure] 40 mm[Hg] Normal 35-45 [facility] Comment on above: Order Comment: Speci men Type: VENOUS BLOOD SPECIMENOrdering Facility: [facility] Address: [address] [place], [place] [address] Performed By: #### 2 4344-4 ####[facility] LABCLIA [id number] [place] [id number] [place] Oxygen saturation in Venous blood 68 % Normal 60-85 [facility] Comment on above: Order Comment: Speci men Type: VENOUS BLOOD SPECIMENOrdering Facility: [facility] Address: [address] [place], [place] [address] Performed By: #### 2 4344-4 ####[facility] LABCLIA [id number] [address] [address] [place] Oxyhemoglobin (BldV) [Mass fraction] 66 % Normal 60-85 [facility] Comment on above: Order Comment: Speci men Type: VENOUS BLOOD SPECIMENOrdering Facility: [facility] Address: [address] [place] [address] Performed By: #### 2 4344-4 ####[facility] LABCLIA [id number] [address] [address] [place] pH (BldV) 7.34 [pH] Normal 7.32-7.42 [facility] Comment on above: Order Comment: Speci men Type: VENOUS BLOOD SPECIMENOrdering Facility: [facility] Address: [address] [place] [address] Performed By: #### 2 4344-4 ####[facility] LABCLIA [id number] [place] [id number] [place] Potassium [Moles/Vol] 4.8 mmol/L Normal 3.5-5.0 [facility] Comment on above: Order Comment: Speci men Type: VENOUS BLOOD SPECIMENOrdering Facility: [facility] Address: [address] [place] [address] Performed By: #### 2 4344-4 ####[facility] LABCLIA [id number] [place] [address] [place] Sodium [Moles/Vol] 134 mmol/L Low 136-144 [facility] Comment on above: Order Comment: Speci men Type: VENOUS BLOOD SPECIMENOrdering Facility: [facility] Address: [address] [place] [address] Performed By: #### 2 4344-4 ####[facility] LABCLIA [id number] [place] [address] [place] Base excess Calc (BldV) [Moles/Vol] 2 mmol/L Normal 0-2 [facility] Comment on above: Order Comment: Speci men Type: VENOUS BLOOD SPECIMENOrdering Facility: [facility] Address: [address] [place] [address] Performed By: #### 2 4344-4 ####[facility] LABCLIA [id number] [place] [address] [place] Body temperature 98.6 [degF] Normal [facility] Comment on above: Order Comment: Speci men Type: VENOUS BLOOD SPECIMENOrdering Facility: [facility] Address: [address] [place] [address] Performed By: #### 2 4344-4 ####[facility] LABCLIA [id number] [place] [address] [place] Calcium.ionized (Bld) [Mass/Vol] 1.19 mmol/L Normal 1.08-1.30 [facility] Comment on above: Order Comment: Speci men Type: VENOUS BLOOD SPECIMENOrdering Facility: [facility] Address: [address] [place] [address] Performed By: #### 2 4344-4 ####[facility] LABIA [id number] [place] [address] [place] Calcium.ionized adjusted to pH 7.4 (BldA) [Moles/Vol] 1.17 mmol/L Normal 1.08-1.30 [facility] Comment on above: Order Comment: Speci men Type: VENOUS BLOOD SPECIMENOrdering Facility: [facility] Address: [address] [place] [address] Performed By: #### 2 4344-4 ####[facility] LABIA [id number] [place] [address] [place] Carboxyhemoglobin (BldV) [Mass fraction] 1.9 % Normal 0.0-2.0 [facility] Comment on above: Order Comment: Speci men Type: VENOUS BLOOD SPECIMENOrdering Facility: [facility] Address: [address] [place] [address] Result Comment: Carb oxyhemoglobin Reference Range for Smokers: 2.0-8.0% Performed By: #### 2 4344-4 ####[facility] LABIA [id number] [place] [address] [place] CO2 (BldV) [Partial pressure] 49 mm[Hg] Normal 42-55 [facility] Comment on above: Order Comment: Speci men Type: VENOUS BLOOD SPECIMENOrdering Facility: [facility] Address: [address] [place] [address] Performed By: #### 2 4344-4 ####[facility] LABIA [id number] [place] [address] [place] Glucose [Mass/Vol] 153 mg/dL High 60-105 [facility] Comment on above: Order Comment: Speci men Type: VENOUS BLOOD SPECIMENOrdering Facility: [facility] Address: [address] [place] [address] Performed By: #### 2 4344-4 ####[facility] LABCLIA [id number] [place] [address] [place] HCO3 (Bld) [Moles/Vol] 27 mmol/L Normal 24-28 [facility] Comment on above: Order Comment: Speci men Type: VENOUS BLOOD SPECIMENOrdering Facility: [facility] Address: [address] [place] [address] Performed By: #### 2 4344-4 ####[facility] LABCLIA [id number] [place] [address] [place] Hematocrit (Bld) [Volume fraction] 26.1 % Low 39.0-51.0 [facility] Comment on above: Order Comment: Speci men Type: VENOUS BLOOD SPECIMENOrdering Facility: [facility] Address: [address] [place] [address] Performed By: #### 2 4344-4 ####[facility] LABIA [id number] [place] [address] [place] Hemoglobin (Bld) [Mass/Vol] 8.4 g/dL Low 13.0-17.0 [facility] Comment on above: Order Comment: Speci men Type: VENOUS BLOOD SPECIMENOrdering Facility: [facility] Address: [address] [place] [address] Performed By: #### 2 4344-4 ####[facility] LABCLIA [id number] [place] [address] [place] Lactate [Moles/Vol] 1.2 mmol/L Normal 0.5-2.2 [facility] Comment on above: Order Comment: Speci men Type: VENOUS BLOOD SPECIMENOrdering Facility: [facility] Address: [address] [place] [address] Performed By: #### 2 4344-4 ####[facility] LABCLIA [id number] [id number], [place] [address] [place] LITERS 2 Liters/min Normal [facility] Comment on above: Order Comment: Speci men Type: VENOUS BLOOD SPECIMENOrdering Facility: [facility] Address: [address] [id number] Performed By: #### 2 4344-4 ####[facility] LABCLIA [id number] [place] [address] [place] Methemoglobin (Bld) [Mass fraction] 0.4 % Normal 0.0-1.5 [facility] Comment on above: Order Comment: Speci men Type: VENOUS BLOOD SPECIMENOrdering Facility: [facility] Address: [address] [place] [address] Performed By: #### 2 4344-4 ####[facility] LABCLIA [id number] [place] [address] [place] O2 THERAPY NC = Nasal Cannula Normal [facility] Comment on above: Order Comment: Speci men Type: VENOUS BLOOD SPECIMENOrdering Facility: [facility] Address: [address] [place], [place] [address] Performed By: #### 2 4344-4 ####[facility] LABCLIA [id number] [place] [address] [place] Oxygen (BldV) [Partial pressure] 54 mm[Hg] High 35-45 [facility] Comment on above: Order Comment: Speci men Type: VENOUS BLOOD SPECIMENOrdering Facility: [facility] Address: [address] [place], [place] [address] Performed By: #### 2 4344-4 ####[facility] LABCLIA [id number] [place] [address] [place] Oxygen saturation in Venous blood 86 % High 60-85 [facility] Comment on above: Order Comment: Speci men Type: VENOUS BLOOD SPECIMENOrdering Facility: [facility] Address: [address] [id number] Performed By: #### 2 4344-4 ####[facility] LABCLIA [id number] [place] [id number] [place] Oxyhemoglobin (BldV) [Mass fraction] 84 % Normal 60-85 [facility] Comment on above: Order Comment: Speci men Type: VENOUS BLOOD SPECIMENOrdering Facility: [facility] Address: [address] [place] [address] Performed By: #### 2 4344-4 ####[facility] LABCLIA [id number] [place] [address] [place] pH (BldV) 7.36 [pH] Normal 7.32-7.42 [facility] Comment on above: Order Comment: Speci men Type: VENOUS BLOOD SPECIMENOrdering Facility: [facility] Address: [address] [place] [address] Performed By: #### 2 4344-4 ####[facility] LABIA [id number] [place] [address] [place] Potassium [Moles/Vol] 4.8 mmol/L Normal 3.5-5.0 [facility] Comment on above: Order Comment: Speci men Type: VENOUS BLOOD SPECIMENOrdering Facility: [facility] Address: [address] [place] [address] Performed By: #### 2 4344-4 ####[facility] LABIA [id number] [place] [address] [place] Sodium [Moles/Vol] 135 mmol/L Low 136-144 [facility] Comment on above: Order Comment: Speci men Type: VENOUS BLOOD SPECIMENOrdering Facility: [facility] Address: [address] [place] [address] Performed By: #### 2 4344-4 ####[facility] LABCLIA [id number] [place] [id number] [place] XR CHEST 1V FRONTAL PORTon 0 06-20-2024 XR CHEST 1V FRONTAL PORT Normal [facility] ARTERIAL BLOOD GASESon 06-19 Base excess Calc (Bld) [Moles/Vol] 0 mmol/L Normal 0-2 [facility] Comment on above: Order Comment: Speci men Type: ARTERIAL BLOOD SPECIMENOrdering Facility: [facility] Address: [address] [place] [address] Performed By: #### A LLBG ####[facility] LABCLIA [id number] [place] [address] [place] Body temperature 98.6 [degF] Normal [facility] Comment on above: Order Comment: Speci men Type: ARTERIAL BLOOD SPECIMENOrdering Facility: [facility] Address: [address] [place] [address] Performed By: #### A LLBG ####[facility] LABCLIA [id number] [place] [address] [place] Order Comment: Speci men Type: VENOUS BLOOD SPECIMENOrdering Facility: [facility] Address: [address] [place] [address] Performed By: #### 2 4344-4 ####[facility] LABCLIA [id number] [place] [address] [place] Calcium.ionized (Bld) [Mass/Vol] 1.22 mmol/L Normal 1.08-1.30 [facility] Comment on above: Order Comment: Speci men Type: ARTERIAL BLOOD SPECIMENOrdering Facility: [facility] Address: [address] [place] [address] Performed By: #### A LLBG ####[facility] LABCLIA [id number] [place] [address] [place] Calcium.ionized adjusted to pH 7.4 (BldA) [Moles/Vol] 1.22 mmol/L Normal 1.08-1.30 [facility] Comment on above: Order Comment: Speci men Type: ARTERIAL BLOOD SPECIMENOrdering Facility: [facility] Address: [address] [place] [address] Performed By: #### A LLBG ####[facility] LABCLIA [id number] [place] [address] [place] Carboxyhemoglobin (BldA) [Mass fraction] 1.8 % Normal 0.0-2.0 [facility] Comment on above: Order Comment: Speci men Type: ARTERIAL BLOOD SPECIMENOrdering Facility: [facility] Address: [address] [place] [address] Result Comment: Carb oxyhemoglobin Reference Range for Smokers: 2.0-8.0% Performed By: #### A LLBG ####[facility] LABCLIA [id number] [place] [address] [place] CO2 (Bld) [Partial pressure] 40 mm Hg Normal 36-46 [facility] Comment on above: Order Comment: Speci men Type: ARTERIAL BLOOD SPECIMENOrdering Facility: [facility] Address: [address] [place] [address] Performed By: #### A LLBG ####[facility] LABCLIA [id number] [place] [address] [place] Glucose [Mass/Vol] 114 mg/dL High 60-105 [facility] Comment on above: Order Comment: Speci men Type: ARTERIAL BLOOD SPECIMENOrdering Facility: [facility] Address: [address] [place] [address] Performed By: #### A LLBG ####[facility] LABCLIA [id number] [place] [address] [place] Order Comment: Speci men Type: VENOUS BLOOD SPECIMENOrdering Facility: [facility] Address: [address] [place] [address] Performed By: #### 2 4344-4 ####[facility] LABCLIA [id number] [place] [address] [place] HCO3 (Bld) [Moles/Vol] 24 mmol/L Normal 22-26 [facility] Comment on above: Order Comment: Speci men Type: ARTERIAL BLOOD SPECIMENOrdering Facility: [facility] Address: [address] [place] [address] Performed By: #### A LLBG ####[facility] LABCLIA [id number] [place] [address] [place] Hematocrit (Bld) [Volume fraction] 27.9 % Low 39.0-51.0 [facility] Comment on above: Order Comment: Speci men Type: ARTERIAL BLOOD SPECIMENOrdering Facility: [facility] Address: [address] [place] [address] Performed By: #### A LLBG ####[facility] LABCLIA [id number] [place] [address] [place] Hemoglobin (Bld) [Mass/Vol] 9.0 g/dL Low 13.0-17.0 [facility] Comment on above: Order Comment: Speci men Type: ARTERIAL BLOOD SPECIMENOrdering Facility: [facility] Address: [address] [place] [address] Performed By: #### A LLBG ####[facility] LABCLIA [id number] [place] [address] [place] Lactate [Moles/Vol] 2.3 mmol/L High 0.5-2.2 [facility] Comment on above: Order Comment: Speci men Type: ARTERIAL BLOOD SPECIMENOrdering Facility: [facility] Address: [address] [place] [address] Performed By: #### A LLBG ####[facility] LABCLIA [id number] [place] [address] [place] LITERS 2 Liters/min Normal [facility] Comment on above: Order Comment: Speci men Type: ARTERIAL BLOOD SPECIMENOrdering Facility: [facility] Address: [address] [place] [address] Performed By: #### A LLBG ####[facility] LABCLIA [id number] [address] [address] [place] Methemoglobin (Bld) [Mass fraction] 0.8 % Normal 0.0-1.5 [facility] Comment on above: Order Comment: Speci men Type: ARTERIAL BLOOD SPECIMENOrdering Facility: [facility] Address: [address] [id number] Performed By: #### A LLBG ####[facility] LABCLIA [id number] [place] [id number] [place] O2 THERAPY NC = Nasal Cannula Normal [facility] Comment on above: Order Comment: Speci men Type: ARTERIAL BLOOD SPECIMENOrdering Facility: [facility] Address: [address] [place], [place] [address] Performed By: #### A LLBG ####[facility] LABCLIA [id number] [place] [address] [place] Order Comment: Speci men Type: VENOUS BLOOD SPECIMENOrdering Facility: [facility] Address: [address] [id number] Performed By: #### 2 4344-4 ####[facility] LABCLIA [id number] [place] [id number] [place] Oxygen (Bld) [Partial pressure] 101 mm Hg High 85-95 [facility] Comment on above: Order Comment: Speci men Type: ARTERIAL BLOOD SPECIMENOrdering Facility: [facility] Address: [address] [id number] Performed By: #### A LLBG ####[facility] LABCLIA [id number] [place] [id number] [place] Oxyhemoglobin (BldA) [Mass fraction] 96 % Normal 95-98 [facility] Comment on above: Order Comment: Speci men Type: ARTERIAL BLOOD SPECIMENOrdering Facility: [facility] Address: [address] [id number] Performed By: #### A LLBG ####[facility] LABCLIA [id number] [place] [address] [place] pH (Bld) 7.39 [pH] Normal 7.35-7.45 [facility] Comment on above: Order Comment: Speci men Type: ARTERIAL BLOOD SPECIMENOrdering Facility: [facility] Address: [address] [place] [address] Performed By: #### A LLBG ####[facility] LABCLIA [id number] [place] [address] [place] Potassium [Moles/Vol] 5.1 mmol/L High 3.5-5.0 [facility] Comment on above: Order Comment: Speci men Type: ARTERIAL BLOOD SPECIMENOrdering Facility: [facility] Address: [address] [place] [address] Performed By: #### A LLBG ####[facility] LABCLIA [id number] [place] [address] [place] Sodium [Moles/Vol] 137 mmol/L Normal 136-144 [facility] Comment on above: Order Comment: Speci men Type: ARTERIAL BLOOD SPECIMENOrdering Facility: [facility] Address: [address] [place] [address] Performed By: #### A LLBG ####[facility] LABCLIA [id number] [place] [address] [place] Order Comment: Speci men Type: VENOUS BLOOD SPECIMENOrdering Facility: [facility] Address: [address] [place] [address] Performed By: #### 2 4344-4 ####[facility] LABCLIA [id number] [place] [address] [place] Base excess Calc (Bld) [Moles/Vol] 0 mmol/L Normal 0-2 [facility] Comment on above: Order Comment: Speci men Type: ARTERIAL BLOOD SPECIMENOrdering Facility: [facility] Address: [address] [place] [address] Performed By: #### A LLBG ####[facility] [id number] [place] [address] [place] Calcium.ionized (Bld) [Mass/Vol] 1.20 mmol/L Normal 1.08-1.30 [facility] Comment on above: Order Comment: Speci men Type: ARTERIAL BLOOD SPECIMENOrdering Facility: [facility] Address: [address] [place] [address] Performed By: #### A LLBG ####[facility] LABIA [id number] [place] [address] [place] Calcium.ionized adjusted to pH 7.4 (BldA) [Moles/Vol] 1.19 mmol/L Normal 1.08-1.30 [facility] Comment on above: Order Comment: Speci men Type: ARTERIAL BLOOD SPECIMENOrdering Facility: [facility] Address: [address] [place] [address] Performed By: #### A LLBG ####[facility] LABIA [id number] [place] [address] [place] Carboxyhemoglobin (BldA) [Mass fraction] 1.8 % Normal 0.0-2.0 [facility] Comment on above: Order Comment: Speci men Type: ARTERIAL BLOOD SPECIMENOrdering Facility: [facility] Address: [address] [place] [address] Result Comment: Carb oxyhemoglobin Reference Range for Smokers: 2.0-8.0% Performed By: #### A LLBG ####[facility] LABIA [id number] [place] [address] [place] CO2 (Bld) [Partial pressure] 43 mm Hg Normal 36-46 [facility] Comment on above: Order Comment: Speci men Type: ARTERIAL BLOOD SPECIMENOrdering Facility: [facility] Address: [address] [place] [address] Performed By: #### A LLBG ####[facility] LABCLIA [id number] [place] [address] [place] Glucose [Mass/Vol] 125 mg/dL High 60-105 [facility] Comment on above: Order Comment: Speci men Type: ARTERIAL BLOOD SPECIMENOrdering Facility: [facility] Address: [address] [place] [address] Performed By: #### A LLBG ####[facility] LABCLIA [id number] [place] [address] [place] HCO3 (Bld) [Moles/Vol] 24 mmol/L Normal 22-26 [facility] Comment on above: Order Comment: Speci men Type: ARTERIAL BLOOD SPECIMENOrdering Facility: [facility] Address: [address] [place] [address] Performed By: #### A LLBG ####[facility] LABIA [id number] [place] [address] [place] Lactate [Moles/Vol] 2.2 mmol/L Normal 0.5-2.2 [facility] Comment on above: Order Comment: Speci men Type: ARTERIAL BLOOD SPECIMENOrdering Facility: [facility] Address: [address] [place] [address] Performed By: #### A LLBG ####[facility] LABIA [id number] [place] [address] [place] Methemoglobin (Bld) [Mass fraction] 0.6 % Normal 0.0-1.5 [facility] Comment on above: Order Comment: Speci men Type: ARTERIAL BLOOD SPECIMENOrdering Facility: [facility] Address: [address] [place] [address] Performed By: #### A LLBG ####[facility] LABIA [id number] [address] [id number], [place] [address] [place] Oxygen (Bld) [Partial pressure] 129 mm Hg High 85-95 [facility] Comment on above: Order Comment: Speci men Type: ARTERIAL BLOOD SPECIMENOrdering Facility: [facility] Address: [address] [place] [address] Performed By: #### A LLBG ####[facility] LABCLIA [id number] [place] [address] [place] Oxyhemoglobin (BldA) [Mass fraction] 97 % Normal 95-98 [facility] Comment on above: Order Comment: Speci men Type: ARTERIAL BLOOD SPECIMENOrdering Facility: [facility] Address: [address] [place] [address] Performed By: #### A LLBG ####[facility] LABIA [id number] [place] [address] [place] pH (Bld) 7.38 [pH] Normal 7.35-7.45 [facility] Comment on above: Order Comment: Speci men Type: ARTERIAL BLOOD SPECIMENOrdering Facility: [facility] Address: [address] [place] [address] Performed By: #### A LLBG ####[facility] LABCLIA [id number] [place] [address] [place] Potassium [Moles/Vol] 4.9 mmol/L Normal 3.5-5.0 [facility] Comment on above: Order Comment: Speci men Type: ARTERIAL BLOOD SPECIMENOrdering Facility: [facility] Address: [address] [place] [address] Performed By: #### A LLBG ####[facility] LABIA [id number] [place] [address] [place] Sodium [Moles/Vol] 136 mmol/L Normal 136-144 [facility] Comment on above: Order Comment: Speci men Type: ARTERIAL BLOOD SPECIMENOrdering Facility: [facility] Address: [address] [place] [address] Performed By: #### A LLBG ####[facility] [id number] [place] [address] [place] Base deficit (BldA) [Moles/Vol] -1 mmol/L Normal -2-0 [facility] Comment on above: Order Comment: Speci men Type: ARTERIAL BLOOD SPECIMENOrdering Facility: [facility] Address: [address] [place] [address] Performed By: #### A LLBG ####[facility] [id number] [place] [address] [place] Calcium.ionized (Bld) [Mass/Vol] 1.24 mmol/L Normal 1.08-1.30 [facility] Comment on above: Order Comment: Speci men Type: ARTERIAL BLOOD SPECIMENOrdering Facility: [facility] Address: [address] [place] [address] Performed By: #### A LLBG ####[facility] [id number] [place] [address] [place] Calcium.ionized adjusted to pH 7.4 (BldA) [Moles/Vol] 1.21 mmol/L Normal 1.08-1.30 [facility] Comment on above: Order Comment: Speci men Type: ARTERIAL BLOOD SPECIMENOrdering Facility: [facility] Address: [address] [place] [address] Performed By: #### A LLBG ####[facility] [id number] [place] [address] [place] Carboxyhemoglobin (BldA) [Mass fraction] 1.7 % Normal 0.0-2.0 [facility] Comment on above: Order Comment: Speci men Type: ARTERIAL BLOOD SPECIMENOrdering Facility: [facility] Address: [address] [place] [address] Result Comment: Carb oxyhemoglobin Reference Range for Smokers: 2.0-8.0% Performed By: #### A LLBG ####[facility] LABCLIA [id number] [place] [address] [place] CO2 (Bld) [Partial pressure] 44 mm Hg Normal 36-46 [facility] Comment on above: Order Comment: Speci men Type: ARTERIAL BLOOD SPECIMENOrdering Facility: [facility] Address: [address] [place] [address] Performed By: #### A LLBG ####[facility] LABCLIA [id number] [place] [address] [place] Glucose [Mass/Vol] 128 mg/dL High 60-105 [facility] Comment on above: Order Comment: Speci men Type: ARTERIAL BLOOD SPECIMENOrdering Facility: [facility] Address: [address] [place] [address] Performed By: #### A LLBG ####[facility] LABCLIA [id number] [place] [address] [place] HCO3 (Bld) [Moles/Vol] 24 mmol/L Normal 22-26 [facility] Comment on above: Order Comment: Speci men Type: ARTERIAL BLOOD SPECIMENOrdering Facility: [facility] Address: [address] [place] [address] Performed By: #### A LLBG ####[facility] LABCLIA [id number] [place] [address] [place] Hematocrit (Bld) [Volume fraction] 26.6 % Low 39.0-51.0 [facility] Comment on above: Order Comment: Speci men Type: ARTERIAL BLOOD SPECIMENOrdering Facility: [facility] Address: [address] [place] [address] Performed By: #### A LLBG ####[facility] LABCLIA [id number] [place] [address] [place] Hemoglobin (Bld) [Mass/Vol] 8.6 g/dL Low 13.0-17.0 [facility] Comment on above: Order Comment: Speci men Type: ARTERIAL BLOOD SPECIMENOrdering Facility: [facility] Address: [address] [id number] Performed By: #### A LLBG ####[facility] LABCLIA [id number] [place] [id number] [place] Lactate [Moles/Vol] 2.7 mmol/L High 0.5-2.2 [facility] Comment on above: Order Comment: Speci men Type: ARTERIAL BLOOD SPECIMENOrdering Facility: [facility] Address: [address] [place] [address] Performed By: #### A LLBG ####[facility] LABCLIA [id number] [place] [address] [place] Methemoglobin (Bld) [Mass fraction] 0.8 % Normal 0.0-1.5 [facility] Comment on above: Order Comment: Speci men Type: ARTERIAL BLOOD SPECIMENOrdering Facility: [facility] Address: [address] [place], [place] [address] Performed By: #### A LLBG ####[facility] LABCLIA [id number] [place] [address] [place] Oxygen (Bld) [Partial pressure] 150 mm Hg High 85-95 [facility] Comment on above: Order Comment: Speci men Type: ARTERIAL BLOOD SPECIMENOrdering Facility: [facility] Address: [address] [place] [address] Performed By: #### A LLBG ####[facility] LABCLIA [id number] [place] [id number] [place] Oxyhemoglobin (BldA) [Mass fraction] 97 % Normal 95-98 [facility] Comment on above: Order Comment: Speci men Type: ARTERIAL BLOOD SPECIMENOrdering Facility: [facility] Address: [address] [place], [place] [address] Performed By: #### A LLBG ####[facility] LABCLIA [id number] [place] [address] [place] pH (Bld) 7.36 [pH] Normal 7.35-7.45 [facility] Comment on above: Order Comment: Speci men Type: ARTERIAL BLOOD SPECIMENOrdering Facility: [facility] Address: [address] [place] [address] Performed By: #### A LLBG ####[facility] LABCLIA [id number] [place] [address] [place] Sodium [Moles/Vol] 138 mmol/L Normal 136-144 [facility] Comment on above: Order Comment: Speci men Type: ARTERIAL BLOOD SPECIMENOrdering Facility: [facility] Address: [address] [place] [address] Performed By: #### A LLBG ####[facility] LABIA [id number] [place] [address] [place] Base deficit (BldA) [Moles/Vol] -2 mmol/L Normal -2-0 [facility] Comment on above: Order Comment: Speci men Type: ARTERIAL BLOOD SPECIMENOrdering Facility: [facility] Address: [address] [place] [address] Performed By: #### A LLBG ####[facility] LABIA [id number] [place] [address] [place] Body temperature 98.6 [degF] Normal [facility] Comment on above: Order Comment: Speci men Type: ARTERIAL BLOOD SPECIMENOrdering Facility: [facility] Address: [address] [place] [address] Performed By: #### A LLBG ####[facility] LABIA [id number] [place] [address] [place] Order Comment: Speci men Type: VENOUS BLOOD SPECIMENOrdering Facility: [facility] Address: [address] [place] [address] Performed By: #### 2 4344-4 ####[facility] LABIA [id number] [place] [address] [place] Calcium.ionized (Bld) [Mass/Vol] 1.20 mmol/L Normal 1.08-1.30 [facility] Comment on above: Order Comment: Speci men Type: ARTERIAL BLOOD SPECIMENOrdering Facility: [facility] Address: [address] [place] [address] Performed By: #### A LLBG ####[facility] [id number] [place] [address] [place] Calcium.ionized adjusted to pH 7.4 (BldA) [Moles/Vol] 1.17 mmol/L Normal 1.08-1.30 [facility] Comment on above: Order Comment: Speci men Type: ARTERIAL BLOOD SPECIMENOrdering Facility: [facility] Address: [address] [place] [address] Performed By: #### A LLBG ####[facility] [id number] [place] [address] [place] Carboxyhemoglobin (BldA) [Mass fraction] 1.2 % Normal 0.0-2.0 [facility] Comment on above: Order Comment: Speci men Type: ARTERIAL BLOOD SPECIMENOrdering Facility: [facility] Address: [address] [place] [address] Result Comment: Carb oxyhemoglobin Reference Range for Smokers: 2.0-8.0% Performed By: #### A LLBG ####[facility] [id number] [place] [address] [place] CO2 (Bld) [Partial pressure] 42 mm Hg Normal 36-46 [facility] Comment on above: Order Comment: Speci men Type: ARTERIAL BLOOD SPECIMENOrdering Facility: [facility] Address: [address] [place] [address] Performed By: #### A LLBG ####[facility] LABCLIA [id number] [place] [address] [place] Glucose [Mass/Vol] 177 mg/dL High 60-105 [facility] Comment on above: Order Comment: Speci men Type: ARTERIAL BLOOD SPECIMENOrdering Facility: [facility] Address: [address] [place] [address] Performed By: #### A LLBG ####[facility] LABCLIA [id number] [place] [address] [place] HCO3 (Bld) [Moles/Vol] 23 mmol/L Normal 22-26 [facility] Comment on above: Order Comment: Speci men Type: ARTERIAL BLOOD SPECIMENOrdering Facility: [facility] Address: [address] [place] [address] Performed By: #### A LLBG ####[facility] LABCLIA [id number] [place] [address] [place] Hematocrit (Bld) [Volume fraction] 27.2 % Low 39.0-51.0 [facility] Comment on above: Order Comment: Speci men Type: ARTERIAL BLOOD SPECIMENOrdering Facility: [facility] Address: [address] [place] [address] Performed By: #### A LLBG ####[facility] LABCLIA [id number] [place] [address] [place] Hemoglobin (Bld) [Mass/Vol] 8.8 g/dL Low 13.0-17.0 [facility] Comment on above: Order Comment: Speci men Type: ARTERIAL BLOOD SPECIMENOrdering Facility: [facility] Address: [address] [place] [address] Performed By: #### A LLBG ####[facility] LABCLIA [id number] [place] [address] [place] Lactate [Moles/Vol] 4.0 mmol/L High 0.5-2.2 [facility] Comment on above: Order Comment: Speci men Type: ARTERIAL BLOOD SPECIMENOrdering Facility: [facility] Address: [address] [id number] Performed By: #### A LLBG ####[facility] LABCLIA [id number] [address] [address] [place] LITERS 2 Liters/min Normal [facility] Comment on above: Order Comment: Speci men Type: ARTERIAL BLOOD SPECIMENOrdering Facility: [facility] Address: [address] [place], [place] [address] Performed By: #### A LLBG ####[facility] LABCLIA [id number] [place] [address] [place] Order Comment: Speci men Type: VENOUS BLOOD SPECIMENOrdering Facility: [facility] Address: [address] [place] [address] Performed By: #### 2 4344-4 ####[facility] LABCLIA [id number] [place] [address] [place] Methemoglobin (Bld) [Mass fraction] 0.4 % Normal 0.0-1.5 [facility] Comment on above: Order Comment: Speci men Type: ARTERIAL BLOOD SPECIMENOrdering Facility: [facility] Address: [address] [place], [place] [address] Performed By: #### A LLBG ####[facility] LABCLIA [id number] [place] [address] [place] O2 THERAPY NC = Nasal Cannula Normal [facility] Comment on above: Order Comment: Speci men Type: ARTERIAL BLOOD SPECIMENOrdering Facility: [facility] Address: [address] [place], [place] [address] Performed By: #### A LLBG ####[facility] LABCLIA [id number] [place] [id number] [place] Order Comment: Speci men Type: VENOUS BLOOD SPECIMENOrdering Facility: [facility] Address: [address] [place] [address] Performed By: #### 2 4344-4 ####[facility] LABCLIA [id number] [place] [address] [place] Oxygen (Bld) [Partial pressure] 143 mm Hg High 85-95 [facility] Comment on above: Order Comment: Speci men Type: ARTERIAL BLOOD SPECIMENOrdering Facility: [facility] Address: [address] [place] [address] Performed By: #### A LLBG ####[facility] LABIA [id number] [place] [address] [place] Oxyhemoglobin (BldA) [Mass fraction] 98 % Normal 95-98 [facility] Comment on above: Order Comment: Speci men Type: ARTERIAL BLOOD SPECIMENOrdering Facility: [facility] Address: [address] [place] [address] Performed By: #### A LLBG ####[facility] LABIA [id number] [place] [address] [place] pH (Bld) 7.35 [pH] Normal 7.35-7.45 [facility] Comment on above: Order Comment: Speci men Type: ARTERIAL BLOOD SPECIMENOrdering Facility: [facility] Address: [address] [place] [address] Performed By: #### A LLBG ####[facility] LABIA [id number] [place] [address] [place] Potassium [Moles/Vol] 4.8 mmol/L Normal 3.5-5.0 [facility] Comment on above: Order Comment: Speci men Type: ARTERIAL BLOOD SPECIMENOrdering Facility: [facility] Address: [address] [place] [address] Performed By: #### A LLBG ####[facility] LABIA [id number] [place] [address] [place] Sodium [Moles/Vol] 138 mmol/L Normal 136-144 [facility] Comment on above: Order Comment: Speci men Type: ARTERIAL BLOOD SPECIMENOrdering Facility: [facility] Address: [address] [place] [address] Performed By: #### A LLBG ####[facility] LABCLIA [id number] [place] [address] [place] Order Comment: Speci men Type: VENOUS BLOOD SPECIMENOrdering Facility: [facility] Address: [address] [place] [address] Performed By: #### 2 4344-4 ####[facility] LABCLIA [id number] [place] [address] [place] Base deficit (BldA) [Moles/Vol] -2 mmol/L Normal -2-0 [facility] Comment on above: Order Comment: Speci men Type: ARTERIAL BLOOD SPECIMENOrdering Facility: [facility] Address: [address] [place] [address] Performed By: #### A LLBG ####[facility] LABCLIA [id number] [place] [address] [place] Body temperature 98.6 [degF] Normal [facility] Comment on above: Order Comment: Speci men Type: ARTERIAL BLOOD SPECIMENOrdering Facility: [facility] Address: [address] [place] [address] Performed By: #### A LLBG ####[facility] LABCLIA [id number] [place] [address] [place] Order Comment: Speci men Type: VENOUS BLOOD SPECIMENOrdering Facility: [facility] Address: [address] [place] [address] Performed By: #### 2 4344-4 ####[facility] LABCLIA [id number] [place] [address] [place] Calcium.ionized (Bld) [Mass/Vol] 1.20 mmol/L Normal 1.08-1.30 [facility] Comment on above: Order Comment: Speci men Type: ARTERIAL BLOOD SPECIMENOrdering Facility: [facility] Address: [address] [place] [address] Performed By: #### A LLBG ####[facility] LABCLIA [id number] [place] [address] [place] Calcium.ionized adjusted to pH 7.4 (BldA) [Moles/Vol] 1.17 mmol/L Normal 1.08-1.30 [facility] Comment on above: Order Comment: Speci men Type: ARTERIAL BLOOD SPECIMENOrdering Facility: [facility] Address: [address] [place] [address] Performed By: #### A LLBG ####[facility] LABIA [id number] [place] [address] [place] Carboxyhemoglobin (BldA) [Mass fraction] 1.1 % Normal 0.0-2.0 [facility] Comment on above: Order Comment: Speci men Type: ARTERIAL BLOOD SPECIMENOrdering Facility: [facility] Address: [address] [place] [address] Result Comment: Carb oxyhemoglobin Reference Range for Smokers: 2.0-8.0% Performed By: #### A LLBG ####[facility] LABCLIA [id number] [place] [address] [place] CO2 (Bld) [Partial pressure] 43 mm Hg Normal 36-46 [facility] Comment on above: Order Comment: Speci men Type: ARTERIAL BLOOD SPECIMENOrdering Facility: [facility] Address: [address] [place] [address] Performed By: #### A LLBG ####[facility] LABCLIA [id number] [place] [address] [place] FIO2 30 % Normal [facility] Comment on above: Order Comment: Speci men Type: ARTERIAL BLOOD SPECIMENOrdering Facility: [facility] Address: [address] [place] [address] Performed By: #### A LLBG ####[facility] LABCLIA [id number] [place] [address] [place] Order Comment: Speci men Type: VENOUS BLOOD SPECIMENOrdering Facility: [facility] Address: [address] [place] [address] Performed By: #### 2 4344-4 ####[facility] LABCLIA [id number] [place] [address] [place] Glucose [Mass/Vol] 173 mg/dL High 60-105 [facility] Comment on above: Order Comment: Speci men Type: ARTERIAL BLOOD SPECIMENOrdering Facility: [facility] Address: [address] [place] [address] Performed By: #### A LLBG ####[facility] LABCLIA [id number] [place] [address] [place] HCO3 (Bld) [Moles/Vol] 23 mmol/L Normal 22-26 [facility] Comment on above: Order Comment: Speci men Type: ARTERIAL BLOOD SPECIMENOrdering Facility: [facility] Address: [address] [place] [address] Performed By: #### A LLBG ####[facility] LABCLIA [id number] [place] [address] [place] Hematocrit (Bld) [Volume fraction] 27.5 % Low 39.0-51.0 [facility] Comment on above: Order Comment: Speci men Type: ARTERIAL BLOOD SPECIMENOrdering Facility: [facility] Address: [address] [place] [address] Performed By: #### A LLBG ####[facility] LABCLIA [id number] [place] [address] [place] Hemoglobin (Bld) [Mass/Vol] 8.9 g/dL Low 13.0-17.0 [facility] Comment on above: Order Comment: Speci men Type: ARTERIAL BLOOD SPECIMENOrdering Facility: [facility] Address: [address] [place] [address] Performed By: #### A LLBG ####[facility] LABCLIA [id number] [address] [address] [place] Lactate [Moles/Vol] 4.9 mmol/L High 0.5-2.2 [facility] Comment on above: Order Comment: Speci men Type: ARTERIAL BLOOD SPECIMENOrdering Facility: [facility] Address: [address] [place] [address] Performed By: #### A LLBG ####[facility] LABCLIA [id number] [place] [address] [place] Methemoglobin (Bld) [Mass fraction] 1.0 % Normal 0.0-1.5 [facility] Comment on above: Order Comment: Speci men Type: ARTERIAL BLOOD SPECIMENOrdering Facility: [facility] Address: [address] [place] [address] Performed By: #### A LLBG ####[facility] LABCLIA [id number] [place] [address] [place] O2 THERAPY Positive Normal [facility] Comment on above: Order Comment: Speci men Type: ARTERIAL BLOOD SPECIMENOrdering Facility: [facility] Address: [address] [place], [place] [address] Performed By: #### A LLBG ####[facility] LABCLIA [id number] [place] [id number] [place] Order Comment: Speci men Type: VENOUS BLOOD SPECIMENOrdering Facility: [facility] Address: [address] [place], [place] [address] Performed By: #### 2 4344-4 ####[facility] LABCLIA [id number] [place] [id number] [address] [place] Oxygen (Bld) [Partial pressure] 129 mm Hg High 85-95 [facility] Comment on above: Order Comment: Speci men Type: ARTERIAL BLOOD SPECIMENOrdering Facility: [facility] Address: [address] [place] [address] Performed By: #### A LLBG ####[facility] LABCLIA [id number] [place] [address] [place] Oxyhemoglobin (BldA) [Mass fraction] 97 % Normal 95-98 [facility] Comment on above: Order Comment: Speci men Type: ARTERIAL BLOOD SPECIMENOrdering Facility: [facility] Address: [address] [place] [address] Performed By: #### A LLBG ####[facility] LABCLIA [id number] [place] [address] [place] pH (Bld) 7.35 [pH] Normal 7.35-7.45 [facility] Comment on above: Order Comment: Speci men Type: ARTERIAL BLOOD SPECIMENOrdering Facility: [facility] Address: [address] [place] [address] Performed By: #### A LLBG ####[facility] LABCLIA [id number] [place] [address] [place] PO2 / FIO2 RATIO 430 mmHg Normal >300 [facility] Comment on above: Order Comment: Speci men Type: ARTERIAL BLOOD SPECIMENOrdering Facility: [facility] Address: [address] [place] [address] Performed By: #### A LLBG ####[facility] LABCLIA [id number] [place] [address] [place] Potassium [Moles/Vol] 4.8 mmol/L Normal 3.5-5.0 [facility] Comment on above: Order Comment: Speci men Type: ARTERIAL BLOOD SPECIMENOrdering Facility: [facility] Address: [address] [place] [address] Performed By: #### A LLBG ####[facility] LABCLIA [id number] [place] [address] [place] Order Comment: Speci men Type: VENOUS BLOOD SPECIMENOrdering Facility: [facility] Address: [address] [place] [address] Performed By: #### 2 4344-4 ####[facility] LABCLIA [id number] [place] [address] [place] Sodium [Moles/Vol] 140 mmol/L Normal 136-144 [facility] Comment on above: Order Comment: Speci men Type: ARTERIAL BLOOD SPECIMENOrdering Facility: [facility] Address: [address] [place] [address] Performed By: #### A LLBG ####[facility] LABIA [id number] [place] [address] [place] Base deficit (BldA) [Moles/Vol] -3 mmol/L Low -2-0 [facility] Comment on above: Order Comment: Speci men Type: ARTERIAL BLOOD SPECIMENOrdering Facility: [facility] Address: [address] [place] [address] Performed By: #### A LLBG ####[facility] LABIA [id number] [place] [address] [place] Calcium.ionized (Bld) [Mass/Vol] 1.21 mmol/L Normal 1.08-1.30 [facility] Comment on above: Order Comment: Speci men Type: ARTERIAL BLOOD SPECIMENOrdering Facility: [facility] Address: [address] [place] [address] Performed By: #### A LLBG ####[facility] LABIA [id number] [place] [address] [place] Calcium.ionized adjusted to pH 7.4 (BldA) [Moles/Vol] 1.20 mmol/L Normal 1.08-1.30 [facility] Comment on above: Order Comment: Speci men Type: ARTERIAL BLOOD SPECIMENOrdering Facility: [facility] Address: [address] [place] [address] Performed By: #### A LLBG ####[facility] LABCLIA [id number] [place] [address] [place] Carboxyhemoglobin (BldA) [Mass fraction] 1.8 % Normal 0.0-2.0 [facility] Comment on above: Order Comment: Speci men Type: ARTERIAL BLOOD SPECIMENOrdering Facility: [facility] Address: [address] [place] [address] Result Comment: Carb oxyhemoglobin Reference Range for Smokers: 2.0-8.0% Performed By: #### A LLBG ####[facility] LABCLIA [id number] [place] [address] [place] CO2 (Bld) [Partial pressure] 36 mm Hg Normal 36-46 [facility] Comment on above: Order Comment: Speci men Type: ARTERIAL BLOOD SPECIMENOrdering Facility: [facility] Address: [address] [place] [address] Performed By: #### A LLBG ####[facility] LABCLIA [id number] [place] [address] [place] Glucose [Mass/Vol] 163 mg/dL High 60-105 [facility] Comment on above: Order Comment: Speci men Type: ARTERIAL BLOOD SPECIMENOrdering Facility: [facility] Address: [address] [place] [address] Performed By: #### A LLBG ####[facility] LABCLIA [id number] [place] [address] [place] HCO3 (Bld) [Moles/Vol] 21 mmol/L Low 22-26 [facility] Comment on above: Order Comment: Speci men Type: ARTERIAL BLOOD SPECIMENOrdering Facility: [facility] Address: [address] [place] [address] Performed By: #### A LLBG ####[facility] LABCLIA [id number] [place] [address] [place] Hematocrit (Bld) [Volume fraction] 30.4 % Low 39.0-51.0 [facility] Comment on above: Order Comment: Speci men Type: ARTERIAL BLOOD SPECIMENOrdering Facility: [facility] Address: [address] [place] [address] Performed By: #### A LLBG ####[facility] LABIA [id number] [place] [address] [place] Lactate [Moles/Vol] 4.8 mmol/L High 0.5-2.2 [facility] Comment on above: Order Comment: Speci men Type: ARTERIAL BLOOD SPECIMENOrdering Facility: [facility] Address: [address] [place] [address] Performed By: #### A LLBG ####[facility] LABIA [id number] [place] [address] [place] Methemoglobin (Bld) [Mass fraction] 0.9 % Normal 0.0-1.5 [facility] Comment on above: Order Comment: Speci men Type: ARTERIAL BLOOD SPECIMENOrdering Facility: [facility] Address: [address] [place] [address] Performed By: #### A LLBG ####[facility] LABIA [id number] [place] [address] [place] Oxygen (Bld) [Partial pressure] 173 mm Hg High 85-95 [facility] Comment on above: Order Comment: Speci men Type: ARTERIAL BLOOD SPECIMENOrdering Facility: [facility] Address: [address] [place] [address] Performed By: #### A LLBG ####[facility] LABIA [id number] [place] [address] [place] Oxyhemoglobin (BldA) [Mass fraction] 97 % Normal 95-98 [facility] Comment on above: Order Comment: Speci men Type: ARTERIAL BLOOD SPECIMENOrdering Facility: [facility] Address: [address] [place] [address] Performed By: #### A LLBG ####[facility] LABCLIA [id number] [place] [address] [place] pH (Bld) 7.39 [pH] Normal 7.35-7.45 [facility] Comment on above: Order Comment: Speci men Type: ARTERIAL BLOOD SPECIMENOrdering Facility: [facility] Address: [address] [place] [address] Performed By: #### A LLBG ####[facility] LABCLIA [id number] [place] [address] [place] Potassium [Moles/Vol] 4.8 mmol/L Normal 3.5-5.0 [facility] Comment on above: Order Comment: Speci men Type: ARTERIAL BLOOD SPECIMENOrdering Facility: [facility] Address: [address] [place] [address] Performed By: #### A LLBG ####[facility] LABCLIA [id number] [place] [address] [place] Sodium [Moles/Vol] 138 mmol/L Normal 136-144 [facility] Comment on above: Order Comment: Speci men Type: ARTERIAL BLOOD SPECIMENOrdering Facility: [facility] Address: [address] [place] [address] Performed By: #### A LLBG ####[facility] LABCLIA [id number] [place] [address] [place] Base deficit (BldA) [Moles/Vol] -2 mmol/L Normal -2-0 [facility] Comment on above: Order Comment: Speci men Type: ARTERIAL BLOOD SPECIMENOrdering Facility: [facility] Address: [address] [place] [address] Performed By: #### A LLBG ####[facility] LABCLIA [id number] [place] [address] [place] Body temperature 98.6 [degF] Normal [facility] Comment on above: Order Comment: Speci men Type: ARTERIAL BLOOD SPECIMENOrdering Facility: [facility] Address: [address] [place] [address] Performed By: #### A LLBG ####[facility] LABCLIA [id number] [place] [address] [place] Calcium.ionized (Bld) [Mass/Vol] 1.22 mmol/L Normal 1.08-1.30 [facility] Comment on above: Order Comment: Speci men Type: ARTERIAL BLOOD SPECIMENOrdering Facility: [facility] Address: [address] [place] [address] Performed By: #### A LLBG ####[facility] LABCLIA [id number] [place] [address] [place] Calcium.ionized adjusted to pH 7.4 (BldA) [Moles/Vol] 1.21 mmol/L Normal 1.08-1.30 [facility] Comment on above: Order Comment: Speci men Type: ARTERIAL BLOOD SPECIMENOrdering Facility: [facility] Address: [address] [place] [address] Performed By: #### A LLBG ####[facility] LABCLIA [id number] [place] [address] [place] Carboxyhemoglobin (BldA) [Mass fraction] 1.8 % Normal 0.0-2.0 [facility] Comment on above: Order Comment: Speci men Type: ARTERIAL BLOOD SPECIMENOrdering Facility: [facility] Address: [address] [place] [address] Result Comment: Carb oxyhemoglobin Reference Range for Smokers: 2.0-8.0% Performed By: #### A LLBG ####[facility] LABCLIA [id number] [place] [address] [place] CO2 (Bld) [Partial pressure] 38 mm Hg Normal 36-46 [facility] Comment on above: Order Comment: Speci men Type: ARTERIAL BLOOD SPECIMENOrdering Facility: [facility] Address: [address] [place] [address] Performed By: #### A LLBG ####[facility] LABCLIA [id number] [place] [address] [place] FIO2 30 % Normal [facility] Comment on above: Order Comment: Speci men Type: ARTERIAL BLOOD SPECIMENOrdering Facility: [facility] Address: [address] [place] [address] Performed By: #### A LLBG ####[facility] LABCLIA [id number] [place] [address] [place] Glucose [Mass/Vol] 132 mg/dL High 60-105 [facility] Comment on above: Order Comment: Speci men Type: ARTERIAL BLOOD SPECIMENOrdering Facility: [facility] Address: [address] [place] [address] Performed By: #### A LLBG ####[facility] LABCLIA [id number] [place] [address] [place] HCO3 (Bld) [Moles/Vol] 22 mmol/L Normal 22-26 [facility] Comment on above: Order Comment: Speci men Type: ARTERIAL BLOOD SPECIMENOrdering Facility: [facility] Address: [address] [place] [address] Performed By: #### A LLBG ####[facility] LABCLIA [id number] [place] [address] [place] Hematocrit (Bld) [Volume fraction] 30.2 % Low 39.0-51.0 [facility] Comment on above: Order Comment: Speci men Type: ARTERIAL BLOOD SPECIMENOrdering Facility: [facility] Address: [address], [place] [address] Performed By: #### A LLBG ####[facility] LABCLIA [id number] [place] [address] [place] Hemoglobin (Bld) [Mass/Vol] 9.8 g/dL Low 13.0-17.0 [facility] Comment on above: Order Comment: Speci men Type: ARTERIAL BLOOD SPECIMENOrdering Facility: [facility] Address: [address] [place] [address] Performed By: #### A LLBG ####[facility] LABIA [id number] [place] [address] [place] Lactate [Moles/Vol] 5.3 mmol/L High 0.5-2.2 [facility] Comment on above: Order Comment: Speci men Type: ARTERIAL BLOOD SPECIMENOrdering Facility: [facility] Address: [address] [place] [address] Performed By: #### A LLBG ####[facility] LABIA [id number] [place] [address] [place] Methemoglobin (Bld) [Mass fraction] 0.7 % Normal 0.0-1.5 [facility] Comment on above: Order Comment: Speci men Type: ARTERIAL BLOOD SPECIMENOrdering Facility: [facility] Address: [address] [place] [address] Performed By: #### A LLBG ####[facility] LABIA [id number] [place] [address] [place] O2 THERAPY VENT=Ventilator Normal [facility] Comment on above: Order Comment: Speci men Type: ARTERIAL BLOOD SPECIMENOrdering Facility: [facility] Address: [address] [place] [address] Performed By: #### A LLBG ####[facility] LABCLIA [id number] [place] [address] [place] Oxygen (Bld) [Partial pressure] 148 mm Hg High 85-95 [facility] Comment on above: Order Comment: Speci men Type: ARTERIAL BLOOD SPECIMENOrdering Facility: [facility] Address: [address] [place] [address] Performed By: #### A LLBG ####[facility] LABCLIA [id number] [place] [address] [place] Oxyhemoglobin (BldA) [Mass fraction] 97 % Normal 95-98 [facility] Comment on above: Order Comment: Speci men Type: ARTERIAL BLOOD SPECIMENOrdering Facility: [facility] Address: [address] [place] [address] Performed By: #### A LLBG ####[facility] LABCLIA [id number] [place] [address] [place] PEEP/CPAP 8 cmH2O Normal [facility] Comment on above: Order Comment: Speci men Type: ARTERIAL BLOOD SPECIMENOrdering Facility: [facility] Address: [address] [place] [address] Performed By: #### A LLBG ####[facility] LABCLIA [id number] [place] [address] [place] pH (Bld) 7.38 [pH] Normal 7.35-7.45 [facility] Comment on above: Order Comment: Speci men Type: ARTERIAL BLOOD SPECIMENOrdering Facility: [facility] Address: [address] [place] [address] Performed By: #### A LLBG ####[facility] LABCLIA [id number] [place] [address] [place] PO2 / FIO2 RATIO 493 mmHg Normal >300 [facility] Comment on above: Order Comment: Speci men Type: ARTERIAL BLOOD SPECIMENOrdering Facility: [facility] Address: [address] [place] [address] Performed By: #### A LLBG ####[facility] LABCLIA [id number] [place] [address] [place] Potassium [Moles/Vol] 4.7 mmol/L Normal 3.5-5.0 [facility] Comment on above: Order Comment: Speci men Type: ARTERIAL BLOOD SPECIMENOrdering Facility: [facility] Address: [address] [place] [address] Performed By: #### A LLBG ####[facility] LABCLIA [id number] [place] [address] [place] Sodium [Moles/Vol] 139 mmol/L Normal 136-144 [facility] Comment on above: Order Comment: Speci men Type: ARTERIAL BLOOD SPECIMENOrdering Facility: [facility] Address: [address] [place] [address] Performed By: #### A LLBG ####[facility] LABCLIA [id number] [place] [address] [place] Base deficit (BldA) [Moles/Vol] -3 mmol/L Low -2-0 [facility] Comment on above: Order Comment: Speci men Type: ARTERIAL BLOOD SPECIMENOrdering Facility: [facility] Address: [address] [place] [address] Performed By: #### A LLBG ####[facility] LABCLIA [id number] [place] [address] [place] Body temperature 98.6 [degF] Normal [facility] Comment on above: Order Comment: Speci men Type: ARTERIAL BLOOD SPECIMENOrdering Facility: [facility] Address: [address] [place] [address] Performed By: #### A LLBG ####[facility] LABCLIA [id number] [place] [address] [place] Order Comment: Speci men Type: VENOUS BLOOD SPECIMENOrdering Facility: [facility] Address: [address] [place] [address] Performed By: #### 2 4344-4 ####[facility] LABCLIA [id number] [place] [address] [place] Calcium.ionized (Bld) [Mass/Vol] 1.23 mmol/L Normal 1.08-1.30 [facility] Comment on above: Order Comment: Speci men Type: ARTERIAL BLOOD SPECIMENOrdering Facility: [facility] Address: [address] [place] [address] Performed By: #### A LLBG ####[facility] LABIA [id number] [place] [address] [place] Order Comment: Speci men Type: VENOUS BLOOD SPECIMENOrdering Facility: [facility] Address: [address] [place] [address] Performed By: #### 2 4344-4 ####[facility] LABIA [id number] [place] [address] [place] Calcium.ionized adjusted to pH 7.4 (BldA) [Moles/Vol] 1.21 mmol/L Normal 1.08-1.30 [facility] Comment on above: Order Comment: Speci men Type: ARTERIAL BLOOD SPECIMENOrdering Facility: [facility] Address: [address] [place] [address] Performed By: #### A LLBG ####[facility] LABIA [id number] [place] [address] [place] Carboxyhemoglobin (BldA) [Mass fraction] 1.5 % Normal 0.0-2.0 [facility] Comment on above: Order Comment: Speci men Type: ARTERIAL BLOOD SPECIMENOrdering Facility: [facility] Address: [address] [place] [address] Result Comment: Carb oxyhemoglobin Reference Range for Smokers: 2.0-8.0% Performed By: #### A LLBG ####[facility] LABIA [id number] [place] [address] [place] CO2 (Bld) [Partial pressure] 37 mm Hg Normal 36-46 [facility] Comment on above: Order Comment: Speci men Type: ARTERIAL BLOOD SPECIMENOrdering Facility: [facility] Address: [address] [place] [address] Performed By: #### A LLBG ####[facility] LABCLIA [id number] [place] [address] [place] FIO2 30 % Normal [facility] Comment on above: Order Comment: Speci men Type: ARTERIAL BLOOD SPECIMENOrdering Facility: [facility] Address: [address] [place] [address] Performed By: #### A LLBG ####[facility] LABCLIA [id number] [place] [address] [place] Order Comment: Speci men Type: VENOUS BLOOD SPECIMENOrdering Facility: [facility] Address: [address] [place] [address] Performed By: #### 2 4344-4 ####[facility] LABCLIA [id number] [place] [address] [place] Glucose [Mass/Vol] 113 mg/dL High 60-105 [facility] Comment on above: Order Comment: Speci men Type: ARTERIAL BLOOD SPECIMENOrdering Facility: [facility] Address: [address] [place] [address] Performed By: #### A LLBG ####[facility] LABCLIA [id number] [place] [address] [place] HCO3 (Bld) [Moles/Vol] 21 mmol/L Low 22-26 [facility] Comment on above: Order Comment: Speci men Type: ARTERIAL BLOOD SPECIMENOrdering Facility: [facility] Address: [address] [place] [address] Performed By: #### A LLBG ####[facility] LABCLIA [id number] [place] [address] [place] Hematocrit (Bld) [Volume fraction] 30.2 % Low 39.0-51.0 [facility] Comment on above: Order Comment: Speci men Type: ARTERIAL BLOOD SPECIMENOrdering Facility: [facility] Address: [address] [place] [address] Performed By: #### A LLBG ####[facility] LABIA [id number] [place] [address] [place] Hemoglobin (Bld) [Mass/Vol] 9.8 g/dL Low 13.0-17.0 [facility] Comment on above: Order Comment: Speci men Type: ARTERIAL BLOOD SPECIMENOrdering Facility: [facility] Address: [address] [place] [address] Performed By: #### A LLBG ####[facility] LABIA [id number] [place] [address] [place] Lactate [Moles/Vol] 5.8 mmol/L High 0.5-2.2 [facility] Comment on above: Order Comment: Speci men Type: ARTERIAL BLOOD SPECIMENOrdering Facility: [facility] Address: [address] [place] [address] Performed By: #### A LLBG ####[facility] LABIA [id number] [place] [address] [place] Methemoglobin (Bld) [Mass fraction] 0.6 % Normal 0.0-1.5 [facility] Comment on above: Order Comment: Speci men Type: ARTERIAL BLOOD SPECIMENOrdering Facility: [facility] Address: [address] [place] [address] Performed By: #### A LLBG ####[facility] LABIA [id number] [place] [address] [place] O2 THERAPY VENT=Ventilator Normal [facility] Comment on above: Order Comment: Speci men Type: ARTERIAL BLOOD SPECIMENOrdering Facility: [facility] Address: [address] [place] [address] Performed By: #### A LLBG ####[facility] LABCLIA [id number] [place] [address] [place] Order Comment: Speci men Type: VENOUS BLOOD SPECIMENOrdering Facility: [facility] Address: [address] [place] [address] Performed By: #### 2 4344-4 ####[facility] LABCLIA [id number] [place] [address] [place] Oxygen (Bld) [Partial pressure] 136 mm Hg High 85-95 [facility] Comment on above: Order Comment: Speci men Type: ARTERIAL BLOOD SPECIMENOrdering Facility: [facility] Address: [address] [place] [address] Performed By: #### A LLBG ####[facility] LABCLIA [id number] [place] [address] [place] Oxyhemoglobin (BldA) [Mass fraction] 97 % Normal 95-98 [facility] Comment on above: Order Comment: Speci men Type: ARTERIAL BLOOD SPECIMENOrdering Facility: [facility] Address: [address] [place] [address] Performed By: #### A LLBG ####[facility] LABCLIA [id number] [place] [address] [place] PEEP/CPAP 8 cmH2O Normal [facility] Comment on above: Order Comment: Speci men Type: ARTERIAL BLOOD SPECIMENOrdering Facility: [facility] Address: [address] [place] [address] Performed By: #### A LLBG ####[facility] LABCLIA [id number] [place] [address] [place] Order Comment: Speci men Type: VENOUS BLOOD SPECIMENOrdering Facility: [facility] Address: [address] [place] [address] Performed By: #### 2 4344-4 ####[facility] LABCLIA [id number] [place] [address] [place] pH (Bld) 7.37 [pH] Normal 7.35-7.45 [facility] Comment on above: Order Comment: Speci men Type: ARTERIAL BLOOD SPECIMENOrdering Facility: [facility] Address: [address] [place] [address] Performed By: #### A LLBG ####[facility] LABCLIA [id number] [place] [address] [place] PO2 / FIO2 RATIO 453 mmHg Normal >300 [facility] Comment on above: Order Comment: Speci men Type: ARTERIAL BLOOD SPECIMENOrdering Facility: [facility] Address: [address] [place] [address] Performed By: #### A LLBG ####[facility] LABCLIA [id number] [place] [address] [place] Potassium [Moles/Vol] 4.4 mmol/L Normal 3.5-5.0 [facility] Comment on above: Order Comment: Speci men Type: ARTERIAL BLOOD SPECIMENOrdering Facility: [facility] Address: [address] [place] [address] Performed By: #### A LLBG ####[facility] LABCLIA [id number] [place] [address] [place] Sodium [Moles/Vol] 140 mmol/L Normal 136-144 [facility] Comment on above: Order Comment: Speci men Type: ARTERIAL BLOOD SPECIMENOrdering Facility: [facility] Address: [address] [place] [address] Performed By: #### A LLBG ####[facility] LABCLIA [id number] [place] [address] [place] Order Comment: Speci men Type: VENOUS BLOOD SPECIMENOrdering Facility: [facility] Address: [address] [place] [address] Performed By: #### 2 4344-4 ####[facility] LABIA [id number] [place] [address] [place] Base deficit (BldA) [Moles/Vol] -5 mmol/L Low -2-0 [facility] Comment on above: Order Comment: Speci men Type: ARTERIAL BLOOD SPECIMENOrdering Facility: [facility] Address: [address] [place] [address] Performed By: #### A LLBG ####[facility] LABIA [id number] [place] [address] [place] Calcium.ionized (Bld) [Mass/Vol] 1.23 mmol/L Normal 1.08-1.30 [facility] Comment on above: Order Comment: Speci men Type: ARTERIAL BLOOD SPECIMENOrdering Facility: [facility] Address: [address] [place] [address] Performed By: #### A LLBG ####[facility] [id number] [place] [address] [place] Calcium.ionized adjusted to pH 7.4 (BldA) [Moles/Vol] 1.18 mmol/L Normal 1.08-1.30 [facility] Comment on above: Order Comment: Speci men Type: ARTERIAL BLOOD SPECIMENOrdering Facility: [facility] Address: [address] [place] [address] Performed By: #### A LLBG ####[facility] LABIA [id number] [place] [address] [place] Carboxyhemoglobin (BldA) [Mass fraction] 1.4 % Normal 0.0-2.0 [facility] Comment on above: Order Comment: Speci men Type: ARTERIAL BLOOD SPECIMENOrdering Facility: [facility] Address: [address] [place] [address] Result Comment: Carb oxyhemoglobin Reference Range for Smokers: 2.0-8.0% Performed By: #### A LLBG ####[facility] LABCLIA [id number] [place] [address] [place] CO2 (Bld) [Partial pressure] 41 mm Hg Normal 36-46 [facility] Comment on above: Order Comment: Speci men Type: ARTERIAL BLOOD SPECIMENOrdering Facility: [facility] Address: [address] [place] [address] Performed By: #### A LLBG ####[facility] LABCLIA [id number] [place] [address] [place] Glucose [Mass/Vol] 130 mg/dL High 60-105 [facility] Comment on above: Order Comment: Speci men Type: ARTERIAL BLOOD SPECIMENOrdering Facility: [facility] Address: [address] [place] [address] Performed By: #### A LLBG ####[facility] LABCLIA [id number] [place] [address] [place] HCO3 (Bld) [Moles/Vol] 20 mmol/L Low 22-26 [facility] Comment on above: Order Comment: Speci men Type: ARTERIAL BLOOD SPECIMENOrdering Facility: [facility] Address: [address] [place] [address] Performed By: #### A LLBG ####[facility] LABCLIA [id number] [place] [address] [place] Hematocrit (Bld) [Volume fraction] 29.4 % Low 39.0-51.0 [facility] Comment on above: Order Comment: Speci men Type: ARTERIAL BLOOD SPECIMENOrdering Facility: [facility] Address: [address] [place] [address] Performed By: #### A LLBG ####[facility] LABCLIA [id number] [place] [address] [place] Hemoglobin (Bld) [Mass/Vol] 9.5 g/dL Low 13.0-17.0 [facility] Comment on above: Order Comment: Speci men Type: ARTERIAL BLOOD SPECIMENOrdering Facility: [facility] Address: [address] [id number] Performed By: #### A LLBG ####[facility] LABCLIA [id number] [place] [address] [place] Lactate [Moles/Vol] 9.1 mmol/L High 0.5-2.2 [facility] Comment on above: Order Comment: Speci men Type: ARTERIAL BLOOD SPECIMENOrdering Facility: [facility] Address: [address] [place], [place] [address] Performed By: #### A LLBG ####[facility] LABCLIA [id number] [place] [address] [place] Methemoglobin (Bld) [Mass fraction] 1.6 % High 0.0-1.5 [facility] Comment on above: Order Comment: Speci men Type: ARTERIAL BLOOD SPECIMENOrdering Facility: [facility] Address: [address] [place] [address] Performed By: #### A LLBG ####[facility] LABCLIA [id number] [place] [address] [place] Oxygen (Bld) [Partial pressure] 148 mm Hg High 85-95 [facility] Comment on above: Order Comment: Speci men Type: ARTERIAL BLOOD SPECIMENOrdering Facility: [facility] Address: [address] [place] [address] Performed By: #### A LLBG ####[facility] LABCLIA [id number] [place] [address] [place] Oxyhemoglobin (BldA) [Mass fraction] 96 % Normal 95-98 [facility] Comment on above: Order Comment: Speci men Type: ARTERIAL BLOOD SPECIMENOrdering Facility: [facility] Address: [address] [place], [place] [address] Performed By: #### A LLBG ####[facility] LABCLIA [id number] [place] [address] [place] pH (Bld) 7.31 [pH] Low 7.35-7.45 [facility] Comment on above: Order Comment: Speci men Type: ARTERIAL BLOOD SPECIMENOrdering Facility: [facility] [place] Address: [address] [place] [address] Performed By: #### A LLBG ####[facility] LABIA [id number] [place] [address] [place] Sodium [Moles/Vol] 140 mmol/L Normal 136-144 [facility] Comment on above: Order Comment: Speci men Type: ARTERIAL BLOOD SPECIMENOrdering Facility: [facility] Address: [address] [place] [address] Performed By: #### A LLBG ####[facility] [id number] [place] [address] [place] Base deficit (BldA) [Moles/Vol] -6 mmol/L Low -2-0 [facility] Comment on above: Order Comment: Speci men Type: ARTERIAL BLOOD SPECIMENOrdering Facility: [facility] Address: [address] [place] [address] Performed By: #### A LLBG ####[facility] LABIA [id number] [place] [address] [place] Calcium.ionized (Bld) [Mass/Vol] 1.21 mmol/L Normal 1.08-1.30 [facility] Comment on above: Order Comment: Speci men Type: ARTERIAL BLOOD SPECIMENOrdering Facility: [facility] Address: [address] [place] [address] Performed By: #### A LLBG ####[facility] LABIA [id number] [place] [address] [place] Calcium.ionized adjusted to pH 7.4 (BldA) [Moles/Vol] 1.16 mmol/L Normal 1.08-1.30 [facility] Comment on above: Order Comment: Speci men Type: ARTERIAL BLOOD SPECIMENOrdering Facility: [facility] Address: [address] [place] [address] Performed By: #### A LLBG ####[facility] LABCLIA [id number] [address] [address] [place] Carboxyhemoglobin (BldA) [Mass fraction] 1.0 % Normal 0.0-2.0 [facility] Comment on above: Order Comment: Speci men Type: ARTERIAL BLOOD SPECIMENOrdering Facility: [facility] Address: [address] [place] [address] Result Comment: Carb oxyhemoglobin Reference Range for Smokers: 2.0-8.0% Performed By: #### A LLBG ####[facility] LABCLIA [id number] [place] [address] [place] CO2 (Bld) [Partial pressure] 39 mm Hg Normal 36-46 [facility] Comment on above: Order Comment: Speci men Type: ARTERIAL BLOOD SPECIMENOrdering Facility: [facility] Address: [address] [place] [address] Performed By: #### A LLBG ####[facility] LABCLIA [id number] [place] [address] [place] COMMENTS Urgent Value: LAC Normal [facility] Comment on above: Order Comment: Speci men Type: ARTERIAL BLOOD SPECIMENOrdering Facility: [facility] Address: [address] [place] [address] Performed By: #### A LLBG ####[facility] LABCLIA [id number] [place] [address] [place] DATE/TIME NOTIFIED [id number] AM Normal [facility] Comment on above: Order Comment: Speci men Type: ARTERIAL BLOOD SPECIMENOrdering Facility: [facility] Address: [address] [place] [address] Performed By: #### A LLBG ####[facility] LABCLIA [id number] [place] [address] [place] HCO3 (Bld) [Moles/Vol] 19 mmol/L Low 22-26 [facility] Comment on above: Order Comment: Speci men Type: ARTERIAL BLOOD SPECIMENOrdering Facility: [facility] Address: [address] [place] [address] Performed By: #### A LLBG ####[facility] LABCLIA [id number] [place] [address] [place] Hematocrit (Bld) [Volume fraction] 30.8 % Low 39.0-51.0 [facility] Comment on above: Order Comment: Speci men Type: ARTERIAL BLOOD SPECIMENOrdering Facility: [facility] Address: [address] [place] [address] Performed By: #### A LLBG ####[facility] LABIA [id number] [place] [address] [place] Hemoglobin (Bld) [Mass/Vol] 10.0 g/dL Low 13.0-17.0 [facility] Comment on above: Order Comment: Speci men Type: ARTERIAL BLOOD SPECIMENOrdering Facility: [facility] Address: [address] [place] [address] Performed By: #### A LLBG ####[facility] LABCLIA [id number] [place] [address] [place] Lactate [Moles/Vol] 10.2 mmol/L High 0.5-2.2 [facility] Comment on above: Order Comment: Speci men Type: ARTERIAL BLOOD SPECIMENOrdering Facility: [facility] Address: [address] [place] [address] Performed By: #### A LLBG ####[facility] LABCLIA [id number] [place] [address] [place] Methemoglobin (Bld) [Mass fraction] 1.1 % Normal 0.0-1.5 [facility] Comment on above: Order Comment: Speci men Type: ARTERIAL BLOOD SPECIMENOrdering Facility: [facility] Address: [address] [place] [address] Performed By: #### A LLBG ####[facility] LABCLIA [id number] [place] [address] [place] NOTIFIED WHOM Lalitha CARRIZALES RN Q50 Tg HOOKS Normal [facility] Comment on above: Order Comment: Speci men Type: ARTERIAL BLOOD SPECIMENOrdering Facility: [facility] Address: [address] [place] [address] Performed By: #### A LLBG ####[facility] LABCLIA [id number] [place] [address] [place] Oxygen (Bld) [Partial pressure] 168 mm Hg High 85-95 [facility] Comment on above: Order Comment: Speci men Type: ARTERIAL BLOOD SPECIMENOrdering Facility: [facility] Address: [address] [place] [address] Performed By: #### A LLBG ####[facility] LABCLIA [id number] [place] [address] [place] Oxyhemoglobin (BldA) [Mass fraction] 97 % Normal 95-98 [facility] Comment on above: Order Comment: Speci men Type: ARTERIAL BLOOD SPECIMENOrdering Facility: [facility] Address: [address] [place] [address] Performed By: #### A LLBG ####[facility] LABCLIA [id number] [place] [address] [place] pH (Bld) 7.31 [pH] Low 7.35-7.45 [facility] Comment on above: Order Comment: Speci men Type: ARTERIAL BLOOD SPECIMENOrdering Facility: [facility] Address: [address] [place] [address] Performed By: #### A LLBG ####[facility] LABCLIA [id number] [place] [address] [place] Potassium [Moles/Vol] 3.8 mmol/L Normal 3.5-5.0 [facility] Comment on above: Order Comment: Speci men Type: ARTERIAL BLOOD SPECIMENOrdering Facility: [facility] Address: [address] [place] [address] Performed By: #### A LLBG ####[facility] LABCLIA [id number] [place] [address] [place] Sodium [Moles/Vol] 140 mmol/L Normal 136-144 [facility] Comment on above: Order Comment: Speci men Type: ARTERIAL BLOOD SPECIMENOrdering Facility: [facility] Address: [address] [place] [address] Performed By: #### A LLBG ####[facility] LABCLIA [id number] [place] [address] [place] CBC panel Auto (Bld)on 06-19 Erythrocyte distribution width (RBC) [Ratio] 14.5 % Normal 11.5-15.0 [facility] Comment on above: Order Comment: Speci men Type: BLOOD SPECIMENOrdering Facility: [facility] Address: [address] [place] [address] Performed By: #### 5 8410-2 ####[facility] LABIA [id number] [place] [address] [place] Hematocrit (Bld) [Volume fraction] 29.4 % Low 39.0-51.0 [facility] Comment on above: Order Comment: Speci men Type: BLOOD SPECIMENOrdering Facility: [facility] Address: [address] [place] [address] Performed By: #### 5 8410-2 ####[facility] LABCLIA [id number] [place] [address] [place] Hemoglobin (Bld) [Mass/Vol] 9.6 g/dL Low 13.0-17.0 [facility] Comment on above: Order Comment: Speci men Type: BLOOD SPECIMENOrdering Facility: [facility] Address: [address] [place] [address] Performed By: #### 5 8410-2 ####[facility] LABIA [id number] [place] [address] [place] MCH (RBC) [Entitic mass] 29.8 pg Normal 26.0-34.0 [facility] Comment on above: Order Comment: Speci men Type: BLOOD SPECIMENOrdering Facility: [facility] Address: [address] [place] [address] Performed By: #### 5 8410-2 ####[facility] LABIA [id number] [place] [address] [place] MCHC (RBC) [Mass/Vol] 32.7 g/dL Normal 30.5-36.0 [facility] Comment on above: Order Comment: Speci men Type: BLOOD SPECIMENOrdering Facility: [facility] Address: [address] [place] [address] Performed By: #### 5 8410-2 ####[facility] LABIA [id number] [place] [address] [place] MCV (RBC) [Entitic vol] 91.3 fL Normal 80.0-100.0 [facility] Comment on above: Order Comment: Speci men Type: BLOOD SPECIMENOrdering Facility: [facility] Address: [address] [place] [address] Performed By: #### 5 8410-2 ####[facility] LABIA [id number] [place] [address] [place] Nucleated RBC (Bld) [#/Vol] 10*3/uL Normal <0.01 [facility] Comment on above: Order Comment: Speci men Type: BLOOD SPECIMENOrdering Facility: [facility] Address: [address] [place] [address] Performed By: #### 5 8410-2 ####[facility] LABCLIA [id number] [place] [address] [place] Platelet mean volume (Bld) [Entitic vol] 10.7 fL Normal 9.0-12.7 [facility] Comment on above: Order Comment: Speci men Type: BLOOD SPECIMENOrdering Facility: [facility] Address: [address] [place] [address] Performed By: #### 5 8410-2 ####[facility] LABCLIA [id number] [place] [address] [place] Platelets (Bld) [#/Vol] 171 10*3/uL Normal 150-400 [facility] Comment on above: Order Comment: Speci men Type: BLOOD SPECIMENOrdering Facility: [facility] Address: [address] [place] [address] Performed By: #### 5 8410-2 ####[facility] LABCLIA [id number] [place] [address] [place] RBC (Bld) [#/Vol] 3.22 10*6/uL Low 4.20-6.00 [facility] Comment on above: Order Comment: Speci men Type: BLOOD SPECIMENOrdering Facility: [facility] Address: [address] [place] [address] Performed By: #### 5 8410-2 ####[facility] LABCLIA [id number] [place] [address] [place] WBC (Bld) [#/Vol] 16.87 10*3/uL High 3.70-11.00 [facility] Comment on above: Order Comment: Speci men Type: BLOOD SPECIMENOrdering Facility: [facility] Address: [address] [place] [address] Performed By: #### 5 8410-2 ####[facility] LABCLIA [id number] [place] [address] [place] Comprehensive metabolic 2000 panelon 06-19-2024 Albumin [Mass/Vol] 3.0 g/dL Low 3.9-4.9 [facility] Comment on above: Order Comment: Speci men Type: BLOOD SPECIMENOrdering Facility: [facility] Address: [address] [place] [address] Performed By: #### 2 4323-8, HSTNT ####[facility] LABCLIA [id number] [place] [address] [place] ALP [Catalytic activity/Vol] 30 U/L Low 38-113 [facility] Comment on above: Order Comment: Speci men Type: BLOOD SPECIMENOrdering Facility: [facility] Address: [address] [place] [address] Performed By: #### 2 4323-8, HSTNT ####[facility] LABCLIA [id number] [place] [address] [place] ALT [Catalytic activity/Vol] 25 U/L Normal 10-54 [facility] Comment on above: Order Comment: Speci men Type: BLOOD SPECIMENOrdering Facility: [facility] Address: [address] [place] [address] Performed By: #### 2 4323-8, HSTNT ####[facility] LABIA [id number] [place] [address] [place] Anion gap [Moles/Vol] 15 mmol/L Normal 8-15 [facility] Comment on above: Order Comment: Speci men Type: BLOOD SPECIMENOrdering Facility: [facility] Address: [address] [place] [address] Performed By: #### 2 4323-8, HSTNT ####[facility] LABCLIA [id number] [place] [address] [place] AST [Catalytic activity/Vol] 81 U/L High 14-40 [facility] Comment on above: Order Comment: Speci men Type: BLOOD SPECIMENOrdering Facility: [facility] Address: [address] [place] [address] Performed By: #### 2 4323-8, HSTNT ####[facility] LABCLIA [id number] [place] [address] [place] Bilirubin [Mass/Vol] 0.7 mg/dL Normal 0.2-1.3 [facility] Comment on above: Order Comment: Speci men Type: BLOOD SPECIMENOrdering Facility: [facility] Address: [address] [place] [address] Performed By: #### 2 4323-8, HSTNT ####[facility] LABCLIA [id number] [place] [address] [place] Calcium [Mass/Vol] 8.6 mg/dL Normal 8.5-10.2 [facility] Comment on above: Order Comment: Speci men Type: BLOOD SPECIMENOrdering Facility: [facility] Address: [address] [place] [address] Performed By: #### 2 4323-8, HSTNT ####[facility] LABCLIA [id number] [place] [address] [place] Chloride [Moles/Vol] 109 mmol/L High 98-107 [facility] Comment on above: Order Comment: Speci men Type: BLOOD SPECIMENOrdering Facility: [facility] Address: [address] [place] [address] Performed By: #### 2 4323-8, HSTNT ####[facility] LABCLIA [id number] [place] [address] [place] CO2 [Moles/Vol] 20 mmol/L Low 22-30 [facility] Comment on above: Order Comment: Speci men Type: BLOOD SPECIMENOrdering Facility: [facility] Address: [address] [place], [place] [address] Performed By: #### 2 4323-8, HSTNT ####[facility] LABCLIA [id number] [place] [id number] [place] Creatinine [Mass/Vol] 1.86 mg/dL High 0.73-1.22 [facility] Comment on above: Order Comment: Bobby men Type: BLOOD SPECIMENOrdering Facility: [facility] Address: [address] [place] [address] Performed By: #### 2 4323-8, HSTNT ####[facility] LABIA [id number] [place] [address] [place] Creatinine and Glomerular filtration rate.predicted panel (S/P/Bld) 37 mL/min/1.73m??? Low >=60 [facility] Comment on above: Order Comment: Bobby villalpando Type: BLOOD SPECIMENOrdering Facility: [facility] Address: [address] [place] [address] Result Comment: Annalisa mated Glomerular Filtration Rate [...] GFR. Performed By: #### 2 4323-8, HSTNT ####[facility] LABIA [id number] [place] [address] [place] Glucose [Mass/Vol] 117 mg/dL High 74-99 [facility] Comment on above: Order Comment: Chandanai men Type: BLOOD SPECIMENOrdering Facility: [facility] Address: [address] [place] [address] Result Comment: The [place] [employer] (ADA) provides guidance for cutoff [...] Standards of Medical Care in Diabetes 2016, [place] [employer]. Diabetes Care. 2016.39(Suppl 1). Performed By: #### 2 4323-8, HSTNT ####[facility] LABCLIA [id number] [place] [address] [place] Potassium [Moles/Vol] 4.5 mmol/L Normal 3.7-5.1 [facility] Comment on above: Order Comment: Speci men Type: BLOOD SPECIMENOrdering Facility: [facility] Address: [address] [place] [address] Performed By: #### 2 4323-8, HSTNT ####[facility] LABCLIA [id number] [place] [address] [place] Protein [Mass/Vol] 4.5 g/dL Low 6.3-8.0 [facility] Comment on above: Order Comment: Chandanai kwasi Type: BLOOD SPECIMENOrdering Facility: [facility] Address: [address] [place] [address] Performed By: #### 2 4323-8, HSTNT ####[facility] LABCLIA [id number] [place] [id number] [place] Sodium [Moles/Vol] 144 mmol/L Normal 136-144 [facility] Comment on above: Order Comment: Speci men Type: BLOOD SPECIMENOrdering Facility: [facility] Address: [address] [place] [address] Performed By: #### 2 4323-8, HSTNT ####[facility] LABCLIA [id number] [place] [id number] [place] Urea nitrogen [Mass/Vol] 26 mg/dL High 9-24 [facility] Comment on above: Order Comment: Speci men Type: BLOOD SPECIMENOrdering Facility: [facility] Address: [address] [place] [address] Performed By: #### 2 4323-8, HSTNT ####[facility] LABCLIA [id number] [place] [address] [place] Gas + CO Pnl BldVon 06-19-20 24 Body temperature 98.6 [degF] Normal [facility] Comment on above: Order Comment: Speci men Type: VENOUS BLOOD SPECIMENOrdering Facility: [facility] Address: [address] [place] [address] Performed By: #### 2 4344-4 ####[facility] LABCLIA [id number] [address] [place] Order Comment: Speci men Type: ARTERIAL BLOOD SPECIMENOrdering Facility: [facility] Address: [address] [place] [address] Performed By: #### A LLBG ####[facility] LABCLIA [id number] [address] [place] Hematocrit (Bld) [Volume fraction] 27.0 % Low 39.0-51.0 [facility] Comment on above: Order Comment: Speci men Type: VENOUS BLOOD SPECIMENOrdering Facility: [facility] Address: [address] [place] [address] Performed By: #### 2 4344-4 ####[facility] LABCLIA [id number] [address] [place] Order Comment: Speci men Type: ARTERIAL BLOOD SPECIMENOrdering Facility: [facility] Address: [address] [place] [address] Performed By: #### A LLBG ####[facility] LABCLIA [id number] [place] [address] [place] Hemoglobin (Bld) [Mass/Vol] 8.7 g/dL Low 13.0-17.0 [facility] Comment on above: Order Comment: Speci men Type: VENOUS BLOOD SPECIMENOrdering Facility: [facility] Address: [address] [place] [address] Performed By: #### 2 4344-4 ####[facility] LABCLIA [id number] [place] [address] [place] Order Comment: Speci men Type: ARTERIAL BLOOD SPECIMENOrdering Facility: [facility] Address: [address] [place] [address] Performed By: #### A LLBG ####[facility] LABCLIA [id number] [place] [address] [place] LITERS 2 Liters/min Normal [facility] Comment on above: Order Comment: Speci men Type: VENOUS BLOOD SPECIMENOrdering Facility: [facility] Address: [address] [place] [address] Performed By: #### 2 4344-4 ####[facility] LABCLIA [id number] [address] [place] Order Comment: Speci men Type: ARTERIAL BLOOD SPECIMENOrdering Facility: [facility] Address: [address] [place] [address] Performed By: #### A LLBG ####[facility] LABCLIA [id number] [place] [address] [place] O2 THERAPY NC = Nasal Cannula Normal [facility] Comment on above: Order Comment: Speci men Type: VENOUS BLOOD SPECIMENOrdering Facility: [facility] Address: [address] [place] [address] Performed By: #### 2 4344-4 ####[facility] LABCLIA [id number] [place] [address] [place] Order Comment: Speci men Type: ARTERIAL BLOOD SPECIMENOrdering Facility: [facility] Address: [address] [place] [id number] Performed By: #### A LLBG ####[facility] LABCLIA [id number] [place] [id number] [place] Body temperature 98.6 [degF] Normal [facility] Comment on above: Order Comment: Speci men Type: VENOUS BLOOD SPECIMENOrdering Facility: [facility] Address: [address] [place], [place] [address] Performed By: #### 2 4344-4 ####[facility] LABCLIA [id number] [place] [address] [place] Order Comment: Speci men Type: ARTERIAL BLOOD SPECIMENOrdering Facility: [facility] Address: [address] [place] [id number] Performed By: #### A LLBG ####[facility] LABCLIA [id number] [place] [address] [place] LITERS 2 Liters/min Normal [facility] Comment on above: Order Comment: Speci men Type: VENOUS BLOOD SPECIMENOrdering Facility: [facility] Address: [address] [place], [place] [address] Performed By: #### 2 4344-4 ####[facility] LABCLIA [id number] [place] [address] [place] Order Comment: Speci men Type: ARTERIAL BLOOD SPECIMENOrdering Facility: [facility] Address: [address] [place] [id number] Performed By: #### A LLBG ####[facility] LABCLIA [id number] [place] [id number] [place] O2 THERAPY [place] = Nasal Cannula Normal [facility] Comment on above: Order Comment: Speci men Type: VENOUS BLOOD SPECIMENOrdering Facility: [facility] Address: [address] [place] [id number] Performed By: #### 2 4344-4 ####[facility] LABCLIA [id number] [address] [place] Order Comment: Speci men Type: ARTERIAL BLOOD SPECIMENOrdering Facility: [facility] Address: [address] [place], [place] [address] Performed By: #### A LLBG ####[facility] LABCLIA [id number] [place] [address] [place] Potassium [Moles/Vol] 5.0 mmol/L Normal 3.5-5.0 [facility] Comment on above: Order Comment: Speci men Type: VENOUS BLOOD SPECIMENOrdering Facility: [facility] Address: [address] [place] [address] Performed By: #### 2 4344-4 ####[facility] LABCLIA [id number] [address] [place] Order Comment: Speci men Type: ARTERIAL BLOOD SPECIMENOrdering Facility: [facility] Address: [address] [place] [address] Performed By: #### A LLBG ####[facility] LABCLIA [id number] [address] [place] Body temperature 98.6 [degF] Normal [facility] Comment on above: Order Comment: Speci men Type: VENOUS BLOOD SPECIMENOrdering Facility: [facility] Address: [address] [place] [address] Performed By: #### 2 4344-4 ####[facility] LABCLIA [id number] [address] [place] Order Comment: Speci men Type: ARTERIAL BLOOD SPECIMENOrdering Facility: [facility] Address: [address] [place] [address] Performed By: #### A LLBG ####[facility] LABCLIA [id number] [address] [place] Hemoglobin (Bld) [Mass/Vol] 9.8 g/dL Low 13.0-17.0 [facility] Comment on above: Order Comment: Speci men Type: VENOUS BLOOD SPECIMENOrdering Facility: [facility] Address: [address] [id number] Performed By: #### 2 4344-4 ####[facility] LABCLIA [id number] [address] [place] Order Comment: Speci men Type: ARTERIAL BLOOD SPECIMENOrdering Facility: [facility] Address: [address] [place] [address] Performed By: #### A LLBG ####[facility] LABCLIA [id number] [address] [place] O2 THERAPY Positive Normal [facility] Comment on above: Order Comment: Speci men Type: VENOUS BLOOD SPECIMENOrdering Facility: [facility] Address: [address] [place] [address] Performed By: #### 2 4344-4 ####[facility] LABCLIA [id number] [address] [place] Order Comment: Speci men Type: ARTERIAL BLOOD SPECIMENOrdering Facility: [facility] Address: [address] [place] [address] Performed By: #### A LLBG ####[facility] LABCLIA [id number] [place] [address] [place] Body temperature 98.6 [degF] Normal [facility] Comment on above: Order Comment: Speci men Type: VENOUS BLOOD SPECIMENOrdering Facility: [facility] Address: [address] [place], [place] [address] Performed By: #### 2 4344-4 ####[facility] LABCLIA [id number] [address] [place] Order Comment: Speci men Type: ARTERIAL BLOOD SPECIMENOrdering Facility: [facility] Address: [address] [id number] Performed By: #### A LLBG ####[facility] LABCLIA [id number] [place] [address] [place] O2 THERAPY VENT=Ventilator Normal [facility] Comment on above: Order Comment: Speci men Type: VENOUS BLOOD SPECIMENOrdering Facility: [facility] Address: [address] [place], [place] [address] Performed By: #### 2 4344-4 ####[facility] LABCLIA [id number] [place] [address] [place] Order Comment: Speci men Type: ARTERIAL BLOOD SPECIMENOrdering Facility: [facility] Address: [address] [place] [address] Performed By: #### A LLBG ####[facility] LABCLIA [id number] [place] [address] [place] Potassium [Moles/Vol] 3.8 mmol/L Normal 3.5-5.0 [facility] Comment on above: Order Comment: Speci men Type: VENOUS BLOOD SPECIMENOrdering Facility: [facility] Address: [address] [place], [place] [address] Performed By: #### 2 4344-4 ####[facility] LABCLIA [id number] [place] [address] [place] Order Comment: Speci men Type: ARTERIAL BLOOD SPECIMENOrdering Facility: [facility] Address: [address] [id number] Performed By: #### A LLBG ####[facility] LABCLIA [id number] [place] [address] [place] Body temperature 98.6 [degF] Normal [facility] Comment on above: Order Comment: Speci men Type: VENOUS BLOOD SPECIMENOrdering Facility: [facility] Address: [address] [place], [place] [address] Performed By: #### 2 4344-4 ####[facility] LABCLIA [id number] [address] [address] [place] Order Comment: Speci men Type: ARTERIAL BLOOD SPECIMENOrdering Facility: [facility] Address: [address] [id number] Performed By: #### A LLBG ####[facility] LABCLIA [id number] [place] [id number] [place] Glucose [Mass/Vol] 156 mg/dL High 60-105 [facility] Comment on above: Order Comment: Speci men Type: VENOUS BLOOD SPECIMENOrdering Facility: [facility] Address: [address] [place] [address] Performed By: #### 2 4344-4 ####[facility] LABCLIA [id number] [place] [address] [place] Order Comment: Speci men Type: ARTERIAL BLOOD SPECIMENOrdering Facility: [facility] Address: [address] [id number] Performed By: #### A LLBG ####[facility] LABCLIA [id number] [place] [address] [place] O2 THERAPY VENT=Ventilator Normal [facility] Comment on above: Order Comment: Speci men Type: VENOUS BLOOD SPECIMENOrdering Facility: [facility] Address: [address] [address] Performed By: #### 2 4344-4 ####[facility] LABCLIA [id number] [place] [id number] [place] Order Comment: Speci men Type: ARTERIAL BLOOD SPECIMENOrdering Facility: [facility] Address: [address] [id number] Performed By: #### A LLBG ####[facility] LABCLIA [id number] [place] [id number] [place] PEEP/CPAP 10 cmH2O Normal [facility] Comment on above: Order Comment: Speci men Type: VENOUS BLOOD SPECIMENOrdering Facility: [facility] Address: [address] [place] [address] Performed By: #### 2 4344-4 ####[facility] LABCLIA [id number] [place] [address] [place] Order Comment: Speci men Type: ARTERIAL BLOOD SPECIMENOrdering Facility: [facility] Address: [address] [place] [address] Performed By: #### A LLBG ####[facility] LABCLIA [id number] [place] [address] [place] Gas and Carbon monoxide pane l (BldV)on 06-19-2024 Base excess Calc (BldV) [Moles/Vol] 2 mmol/L Normal 0-2 [facility] Comment on above: Order Comment: Speci men Type: VENOUS BLOOD SPECIMENOrdering Facility: [facility] Address: [address] [place] [address] Performed By: #### 2 4344-4 ####[facility] LABCLIA [id number] [place] [address] [place] Body temperature 98.6 [degF] Normal [facility] Comment on above: Order Comment: Speci men Type: VENOUS BLOOD SPECIMENOrdering Facility: [facility] Address: [address] [place] [address] Performed By: #### 2 4344-4 ####[facility] LABCLIA [id number] [place] [address] [place] Calcium.ionized (Bld) [Mass/Vol] 1.21 mmol/L Normal 1.08-1.30 [facility] Comment on above: Order Comment: Speci men Type: VENOUS BLOOD SPECIMENOrdering Facility: [facility] Address: [address] [place] [address] Performed By: #### 2 4344-4 ####[facility] LABIA [id number] [place] [address] [place] Calcium.ionized adjusted to pH 7.4 (BldA) [Moles/Vol] 1.18 mmol/L Normal 1.08-1.30 [facility] Comment on above: Order Comment: Speci men Type: VENOUS BLOOD SPECIMENOrdering Facility: [facility] Address: [address] [place] [address] Performed By: #### 2 4344-4 ####[facility] LABIA [id number] [place] [address] [place] Carboxyhemoglobin (BldV) [Mass fraction] 1.5 % Normal 0.0-2.0 [facility] Comment on above: Order Comment: Speci men Type: VENOUS BLOOD SPECIMENOrdering Facility: [facility] Address: [address] [place] [address] Result Comment: Carb oxyhemoglobin Reference Range for Smokers: 2.0-8.0% Performed By: #### 2 4344-4 ####[facility] LABIA [id number] [place] [address] [place] CO2 (BldV) [Partial pressure] 53 mm[Hg] Normal 42-55 [facility] Comment on above: Order Comment: Speci men Type: VENOUS BLOOD SPECIMENOrdering Facility: [facility] Address: [address] [place] [address] Performed By: #### 2 4344-4 ####[facility] LABIA [id number] [place] [address] [place] Glucose [Mass/Vol] 150 mg/dL High 60-105 [facility] Comment on above: Order Comment: Speci men Type: VENOUS BLOOD SPECIMENOrdering Facility: [facility] Address: [address] [place] [address] Performed By: #### 2 4344-4 ####[facility] LABCLIA [id number] [place] [address] [place] HCO3 (Bld) [Moles/Vol] 28 mmol/L Normal 24-28 [facility] Comment on above: Order Comment: Speci men Type: VENOUS BLOOD SPECIMENOrdering Facility: [facility] Address: [address] [place] [address] Performed By: #### 2 4344-4 ####[facility] LABCLIA [id number] [place] [address] [place] Hematocrit (Bld) [Volume fraction] 26.9 % Low 39.0-51.0 [facility] Comment on above: Order Comment: Speci men Type: VENOUS BLOOD SPECIMENOrdering Facility: [facility] Address: [address] [place] [address] Performed By: #### 2 4344-4 ####[facility] LABCLIA [id number] [place] [address] [place] Hemoglobin (Bld) [Mass/Vol] 8.7 g/dL Low 13.0-17.0 [facility] Comment on above: Order Comment: Speci men Type: VENOUS BLOOD SPECIMENOrdering Facility: [facility] Address: [address] [place] [address] Performed By: #### 2 4344-4 ####[facility] LABCLIA [id number] [place] [address] [place] Lactate [Moles/Vol] 1.5 mmol/L Normal 0.5-2.2 [facility] Comment on above: Order Comment: Speci men Type: VENOUS BLOOD SPECIMENOrdering Facility: [facility] Address: [address] [place] [address] Performed By: #### 2 4344-4 ####[facility] LABCLIA [id number] [place] [address] [place] LITERS 2 Liters/min Normal [facility] Comment on above: Order Comment: Speci men Type: VENOUS BLOOD SPECIMENOrdering Facility: [facility] Address: [address] [place] [address] Performed By: #### 2 4344-4 ####[facility] LABCLIA [id number] [address] [address] [place] Methemoglobin (Bld) [Mass fraction] 0.6 % Normal 0.0-1.5 [facility] Comment on above: Order Comment: Speci men Type: VENOUS BLOOD SPECIMENOrdering Facility: [facility] Address: [address] [id number] Performed By: #### 2 4344-4 ####[facility] LABCLIA [id number] [address] [address] [place] O2 THERAPY NC = Nasal Cannula Normal [facility] Comment on above: Order Comment: Speci men Type: VENOUS BLOOD SPECIMENOrdering Facility: [facility] Address: [address] [id number] Performed By: #### 2 4344-4 ####[facility] LABCLIA [id number] [place] [id number] [place] Oxygen (BldV) [Partial pressure] 35 mm[Hg] Normal 35-45 [facility] Comment on above: Order Comment: Speci men Type: VENOUS BLOOD SPECIMENOrdering Facility: [facility] Address: [address] [id number] Performed By: #### 2 4344-4 ####[facility] LABCLIA [id number] [address] [address] [place] Oxygen saturation in Venous blood 60 % Normal 60-85 [facility] Comment on above: Order Comment: Speci men Type: VENOUS BLOOD SPECIMENOrdering Facility: [facility] Address: [address] [id number] Performed By: #### 2 4344-4 ####[facility] LABCLIA [id number] [place] [address] [place] Oxyhemoglobin (BldV) [Mass fraction] 58 % Low 60-85 [facility] Comment on above: Order Comment: Speci men Type: VENOUS BLOOD SPECIMENOrdering Facility: [facility] Address: [address] [place] [address] Performed By: #### 2 4344-4 ####[facility] LABIA [id number] [place] [address] [place] pH (BldV) 7.34 [pH] Normal 7.32-7.42 [facility] Comment on above: Order Comment: Speci men Type: VENOUS BLOOD SPECIMENOrdering Facility: [facility] Address: [address] [place] [address] Performed By: #### 2 4344-4 ####[facility] LABCLIA [id number] [place] [address] [place] Potassium [Moles/Vol] 4.8 mmol/L Normal 3.5-5.0 [facility] Comment on above: Order Comment: Speci men Type: VENOUS BLOOD SPECIMENOrdering Facility: [facility] Address: [address] [place] [address] Performed By: #### 2 4344-4 ####[facility] LABIA [id number] [place] [address] [place] Sodium [Moles/Vol] 136 mmol/L Normal 136-144 [facility] Comment on above: Order Comment: Speci men Type: VENOUS BLOOD SPECIMENOrdering Facility: [facility] Address: [address] [place], [place] [address] Performed By: #### 2 4344-4 ####[facility] LABCLIA [id number] [place] [address] [place] Base excess Calc (BldV) [Moles/Vol] 2 mmol/L Normal 0-2 [facility] Comment on above: Order Comment: Speci men Type: VENOUS BLOOD SPECIMENOrdering Facility: [facility] Address: [address] [place] [address] Performed By: #### 2 4344-4 ####[facility] LABIA [id number] [place] [address] [place] Body temperature 98.6 [degF] Normal [facility] Comment on above: Order Comment: Speci men Type: VENOUS BLOOD SPECIMENOrdering Facility: [facility] Address: [address] [place] [address] Performed By: #### 2 4344-4 ####[facility] [id number] [place] [address] [place] Calcium.ionized (Bld) [Mass/Vol] 1.22 mmol/L Normal 1.08-1.30 [facility] Comment on above: Order Comment: Speci men Type: VENOUS BLOOD SPECIMENOrdering Facility: [facility] Address: [address] [place] [address] Performed By: #### 2 4344-4 ####[facility] [id number] [place] [address] [place] Calcium.ionized adjusted to pH 7.4 (BldA) [Moles/Vol] 1.18 mmol/L Normal 1.08-1.30 [facility] Comment on above: Order Comment: Speci men Type: VENOUS BLOOD SPECIMENOrdering Facility: [facility] Address: [address] [place] [address] Performed By: #### 2 4344-4 ####[facility] [id number] [place] [address] [place] Carboxyhemoglobin (BldV) [Mass fraction] 1.3 % Normal 0.0-2.0 [facility] Comment on above: Order Comment: Speci men Type: VENOUS BLOOD SPECIMENOrdering Facility: [facility] Address: [address] [place] [address] Result Comment: Carb oxyhemoglobin Reference Range for Smokers: 2.0-8.0% Performed By: #### 2 4344-4 ####[facility] LABCLIA [id number] [place] [address] [place] CO2 (BldV) [Partial pressure] 52 mm[Hg] Normal 42-55 [facility] Comment on above: Order Comment: Speci men Type: VENOUS BLOOD SPECIMENOrdering Facility: [facility] Address: [address] [place] [address] Performed By: #### 2 4344-4 ####[facility] LABCLIA [id number] [place] [address] [place] Glucose [Mass/Vol] 154 mg/dL High 60-105 [facility] Comment on above: Order Comment: Speci men Type: VENOUS BLOOD SPECIMENOrdering Facility: [facility] Address: [address] [place] [address] Performed By: #### 2 4344-4 ####[facility] LABCLIA [id number] [place] [address] [place] HCO3 (Bld) [Moles/Vol] 27 mmol/L Normal 24-28 [facility] Comment on above: Order Comment: Speci men Type: VENOUS BLOOD SPECIMENOrdering Facility: [facility] Address: [address] [place] [address] Performed By: #### 2 4344-4 ####[facility] LABCLIA [id number] [place] [address] [place] Hematocrit (Bld) [Volume fraction] 26.7 % Low 39.0-51.0 [facility] Comment on above: Order Comment: Speci men Type: VENOUS BLOOD SPECIMENOrdering Facility: [facility] Address: [address] [place] [address] Performed By: #### 2 4344-4 ####[facility] LABCLIA [id number] [place] [address] [place] Hemoglobin (Bld) [Mass/Vol] 8.6 g/dL Low 13.0-17.0 [facility] Comment on above: Order Comment: Speci men Type: VENOUS BLOOD SPECIMENOrdering Facility: [facility] Address: [address] [place] [address] Performed By: #### 2 4344-4 ####[facility] LABCLIA [id number] [place] [address] [place] Lactate [Moles/Vol] 1.3 mmol/L Normal 0.5-2.2 [facility] Comment on above: Order Comment: Speci men Type: VENOUS BLOOD SPECIMENOrdering Facility: [facility] Address: [address] [place] [address] Performed By: #### 2 4344-4 ####[facility] LABCLIA [id number] [place] [address] [place] LITERS 2 Liters/min Normal [facility] Comment on above: Order Comment: Speci men Type: VENOUS BLOOD SPECIMENOrdering Facility: [facility] Address: [address] [place] [address] Performed By: #### 2 4344-4 ####[facility] LABCLIA [id number] [place] [address] [place] Methemoglobin (Bld) [Mass fraction] 1.4 % Normal 0.0-1.5 [facility] Comment on above: Order Comment: Speci men Type: VENOUS BLOOD SPECIMENOrdering Facility: [facility] Address: [address] [place] [address] Performed By: #### 2 4344-4 ####[facility] LABCLIA [id number] [place] [address] [place] O2 THERAPY NC = Nasal Cannula Normal [facility] Comment on above: Order Comment: Speci men Type: VENOUS BLOOD SPECIMENOrdering Facility: [facility] Address: [address] [id number] Performed By: #### 2 4344-4 ####[facility] LABCLIA [id number] [address] [address] [place] Oxygen (BldV) [Partial pressure] 51 mm[Hg] High 35-45 [facility] Comment on above: Order Comment: Speci men Type: VENOUS BLOOD SPECIMENOrdering Facility: [facility] Address: [address] [place] [address] Performed By: #### 2 4344-4 ####[facility] LABCLIA [id number] [place] [address] [place] Oxygen saturation in Venous blood 85 % Normal 60-85 [facility] Comment on above: Order Comment: Speci men Type: VENOUS BLOOD SPECIMENOrdering Facility: [facility] Address: [address] [place] [address] Performed By: #### 2 4344-4 ####[facility] LABIA [id number] [place] [address] [place] Oxyhemoglobin (BldV) [Mass fraction] 83 % Normal 60-85 [facility] Comment on above: Order Comment: Speci men Type: VENOUS BLOOD SPECIMENOrdering Facility: [facility] Address: [address] [place], [place] [address] Performed By: #### 2 4344-4 ####[facility] LABIA [id number] [place] [address] [place] pH (BldV) 7.34 [pH] Normal 7.32-7.42 [facility] Comment on above: Order Comment: Speci men Type: VENOUS BLOOD SPECIMENOrdering Facility: [facility] Address: [address] [place], [place] [address] Performed By: #### 2 4344-4 ####[facility] LABIA [id number] [place] [id number] [place] Potassium [Moles/Vol] 4.6 mmol/L Normal 3.5-5.0 [facility] Comment on above: Order Comment: Speci men Type: VENOUS BLOOD SPECIMENOrdering Facility: [facility] Address: [address] [place] [address] Performed By: #### 2 4344-4 ####[facility] LABCLIA [id number] [place] [address] [place] Sodium [Moles/Vol] 135 mmol/L Low 136-144 [facility] Comment on above: Order Comment: Speci men Type: VENOUS BLOOD SPECIMENOrdering Facility: [facility] Address: [address] [place] [address] Performed By: #### 2 4344-4 ####[facility] LABCLIA [id number] [place] [address] [place] Base excess Calc (BldV) [Moles/Vol] 1 mmol/L Normal 0-2 [facility] Comment on above: Order Comment: Speci men Type: VENOUS BLOOD SPECIMENOrdering Facility: [facility] Address: [address] [place] [address] Performed By: #### 2 4344-4 ####[facility] LABIA [id number] [place] [address] [place] Body temperature 98.6 [degF] Normal [facility] Comment on above: Order Comment: Speci men Type: VENOUS BLOOD SPECIMENOrdering Facility: [facility] Address: [address] [place] [address] Performed By: #### 2 4344-4 ####[facility] LABIA [id number] [place] [address] [place] Calcium.ionized (Bld) [Mass/Vol] 1.19 mmol/L Normal 1.08-1.30 [facility] Comment on above: Order Comment: Speci men Type: VENOUS BLOOD SPECIMENOrdering Facility: [facility] Address: [address] [place] [address] Performed By: #### 2 4344-4 ####[facility] LABIA [id number] [place] [address] [place] Calcium.ionized adjusted to pH 7.4 (BldA) [Moles/Vol] 1.17 mmol/L Normal 1.08-1.30 [facility] Comment on above: Order Comment: Speci men Type: VENOUS BLOOD SPECIMENOrdering Facility: [facility] Address: [address] [place] [address] Performed By: #### 2 4344-4 ####[facility] LABIA [id number] [place] [address] [place] Carboxyhemoglobin (BldV) [Mass fraction] 1.5 % Normal 0.0-2.0 [facility] Comment on above: Order Comment: Speci men Type: VENOUS BLOOD SPECIMENOrdering Facility: [facility] Address: [address] [place] [address] Result Comment: Carb oxyhemoglobin Reference Range for Smokers: 2.0-8.0% Performed By: #### 2 4344-4 ####[facility] LABIA [id number] [place] [address] [place] CO2 (BldV) [Partial pressure] 47 mm[Hg] Normal 42-55 [facility] Comment on above: Order Comment: Speci men Type: VENOUS BLOOD SPECIMENOrdering Facility: [facility] Address: [address] [place] [address] Performed By: #### 2 4344-4 ####[facility] LABIA [id number] [place] [address] [place] Glucose [Mass/Vol] 150 mg/dL High 60-105 [facility] Comment on above: Order Comment: Speci men Type: VENOUS BLOOD SPECIMENOrdering Facility: [facility] Address: [address] [place] [address] Performed By: #### 2 4344-4 ####[facility] LABCLIA [id number] [place] [address] [place] HCO3 (Bld) [Moles/Vol] 26 mmol/L Normal 24-28 [facility] Comment on above: Order Comment: Speci men Type: VENOUS BLOOD SPECIMENOrdering Facility: [facility] Address: [address] [place] [address] Performed By: #### 2 4344-4 ####[facility] LABCLIA [id number] [place] [address] [place] Hematocrit (Bld) [Volume fraction] 27.1 % Low 39.0-51.0 [facility] Comment on above: Order Comment: Speci men Type: VENOUS BLOOD SPECIMENOrdering Facility: [facility] Address: [address] [place] [address] Performed By: #### 2 4344-4 ####[facility] LABCLIA [id number] [place] [address] [place] Hemoglobin (Bld) [Mass/Vol] 8.7 g/dL Low 13.0-17.0 [facility] Comment on above: Order Comment: Speci men Type: VENOUS BLOOD SPECIMENOrdering Facility: [facility] Address: [address] [place] [address] Performed By: #### 2 4344-4 ####[facility] LABCLIA [id number] [place] [address] [place] Lactate [Moles/Vol] 1.4 mmol/L Normal 0.5-2.2 [facility] Comment on above: Order Comment: Speci men Type: VENOUS BLOOD SPECIMENOrdering Facility: [facility] Address: [address] [place] [address] Performed By: #### 2 4344-4 ####[facility] LABCLIA [id number] [place] [address] [place] LITERS 2 Liters/min Normal [facility] Comment on above: Order Comment: Speci men Type: VENOUS BLOOD SPECIMENOrdering Facility: [facility] Address: [address] [place] [address] Performed By: #### 2 4344-4 ####[facility] LABCLIA [id number] [address] [address] [place] Methemoglobin (Bld) [Mass fraction] 0.8 % Normal 0.0-1.5 [facility] Comment on above: Order Comment: Speci men Type: VENOUS BLOOD SPECIMENOrdering Facility: [facility] Address: [address] [place] [address] Performed By: #### 2 4344-4 ####[facility] LABCLIA [id number] [place] [address] [place] O2 THERAPY NC = Nasal Cannula Normal [facility] Comment on above: Order Comment: Speci men Type: VENOUS BLOOD SPECIMENOrdering Facility: [facility] Address: [address] [place] [address] Performed By: #### 2 4344-4 ####[facility] LABCLIA [id number] [place] [address] [place] Oxygen (BldV) [Partial pressure] 41 mm[Hg] Normal 35-45 [facility] Comment on above: Order Comment: Speci men Type: VENOUS BLOOD SPECIMENOrdering Facility: [facility] Address: [address] [place] [address] Performed By: #### 2 4344-4 ####[facility] LABCLIA [id number] [place] [address] [place] Oxygen saturation in Venous blood 71 % Normal 60-85 [facility] Comment on above: Order Comment: Speci men Type: VENOUS BLOOD SPECIMENOrdering Facility: [facility] Address: [address] [place] [address] Performed By: #### 2 4344-4 ####[facility] LABCLIA [id number] [place] [address] [place] Oxyhemoglobin (BldV) [Mass fraction] 70 % Normal 60-85 [facility] Comment on above: Order Comment: Speci men Type: VENOUS BLOOD SPECIMENOrdering Facility: [facility] Address: [address] [place] [address] Performed By: #### 2 4344-4 ####[facility] LABCLIA [id number] [place] [address] [place] pH (BldV) 7.36 [pH] Normal 7.32-7.42 [facility] Comment on above: Order Comment: Speci men Type: VENOUS BLOOD SPECIMENOrdering Facility: [facility] Address: [address] [place] [address] Performed By: #### 2 4344-4 ####[facility] LABIA [id number] [place] [address] [place] Potassium [Moles/Vol] 4.8 mmol/L Normal 3.5-5.0 [facility] Comment on above: Order Comment: Speci men Type: VENOUS BLOOD SPECIMENOrdering Facility: [facility] Address: [address] [place] [address] Performed By: #### 2 4344-4 ####[facility] LABIA [id number] [place] [address] [place] Sodium [Moles/Vol] 135 mmol/L Low 136-144 [facility] Comment on above: Order Comment: Speci men Type: VENOUS BLOOD SPECIMENOrdering Facility: [facility] Address: [address] [place] [address] Performed By: #### 2 4344-4 ####[facility] LABCLIA [id number] [place] [address] [place] Base excess Calc (BldV) [Moles/Vol] 0 mmol/L Normal 0-2 [facility] Comment on above: Order Comment: Speci men Type: VENOUS BLOOD SPECIMENOrdering Facility: [facility] Address: [address] [place] [address] Performed By: #### 2 4344-4 ####[facility] LABIA [id number] [place] [address] [place] Body temperature 98.6 [degF] Normal [facility] Comment on above: Order Comment: Speci men Type: VENOUS BLOOD SPECIMENOrdering Facility: [facility] Address: [address] [place] [address] Performed By: #### 2 4344-4 ####[facility] [id number] [place] [address] [place] Calcium.ionized (Bld) [Mass/Vol] 1.19 mmol/L Normal 1.08-1.30 [facility] Comment on above: Order Comment: Speci men Type: VENOUS BLOOD SPECIMENOrdering Facility: [facility] Address: [address] [place] [address] Performed By: #### 2 4344-4 ####[facility] [id number] [place] [address] [place] Calcium.ionized adjusted to pH 7.4 (BldA) [Moles/Vol] 1.16 mmol/L Normal 1.08-1.30 [facility] Comment on above: Order Comment: Speci men Type: VENOUS BLOOD SPECIMENOrdering Facility: [facility] Address: [address] [place], [place] [address] Performed By: #### 2 4344-4 ####[facility] [id number] [place] [address] [place] Carboxyhemoglobin (BldV) [Mass fraction] 1.5 % Normal 0.0-2.0 [facility] Comment on above: Order Comment: Speci men Type: VENOUS BLOOD SPECIMENOrdering Facility: [facility] Address: [address] [place] [address] Result Comment: Carb oxyhemoglobin Reference Range for Smokers: 2.0-8.0% Performed By: #### 2 4344-4 ####[facility] LABCLIA [id number] [place] [address] [place] CO2 (BldV) [Partial pressure] 45 mm[Hg] Normal 42-55 [facility] Comment on above: Order Comment: Speci men Type: VENOUS BLOOD SPECIMENOrdering Facility: [facility] Address: [address] [place] [address] Performed By: #### 2 4344-4 ####[facility] LABCLIA [id number] [place] [address] [place] Glucose [Mass/Vol] 144 mg/dL High 60-105 [facility] Comment on above: Order Comment: Speci men Type: VENOUS BLOOD SPECIMENOrdering Facility: [facility] Address: [address] [place] [address] Performed By: #### 2 4344-4 ####[facility] LABCLIA [id number] [place] [address] [place] HCO3 (Bld) [Moles/Vol] 25 mmol/L Normal 24-28 [facility] Comment on above: Order Comment: Speci men Type: VENOUS BLOOD SPECIMENOrdering Facility: [facility] Address: [address] [place] [address] Performed By: #### 2 4344-4 ####[facility] LABCLIA [id number] [place] [address] [place] Hematocrit (Bld) [Volume fraction] 26.7 % Low 39.0-51.0 [facility] Comment on above: Order Comment: Speci men Type: VENOUS BLOOD SPECIMENOrdering Facility: [facility] Address: [address] [place] [address] Performed By: #### 2 4344-4 ####[facility] LABCLIA [id number] [place] [address] [place] Hemoglobin (Bld) [Mass/Vol] 8.6 g/dL Low 13.0-17.0 [facility] Comment on above: Order Comment: Speci men Type: VENOUS BLOOD SPECIMENOrdering Facility: [facility] Address: [address] [place] [address] Performed By: #### 2 4344-4 ####[facility] LABIA [id number] [place] [address] [place] Lactate [Moles/Vol] 1.4 mmol/L Normal 0.5-2.2 [facility] Comment on above: Order Comment: Speci men Type: VENOUS BLOOD SPECIMENOrdering Facility: [facility] Address: [address] [place] [address] Performed By: #### 2 4344-4 ####[facility] LABIA [id number] [place] [address] [place] Methemoglobin (Bld) [Mass fraction] 0.6 % Normal 0.0-1.5 [facility] Comment on above: Order Comment: Speci men Type: VENOUS BLOOD SPECIMENOrdering Facility: [facility] Address: [address] [place] [address] Performed By: #### 2 4344-4 ####[facility] LABIA [id number] [place] [address] [place] O2 THERAPY NC = Nasal Cannula Normal [facility] Comment on above: Order Comment: Speci men Type: VENOUS BLOOD SPECIMENOrdering Facility: [facility] Address: [address] [place], [place] [address] Performed By: #### 2 4344-4 ####[facility] LABIA [id number] [place] [address] [place] Oxygen (BldV) [Partial pressure] 39 mm[Hg] Normal 35-45 [facility] Comment on above: Order Comment: Speci men Type: VENOUS BLOOD SPECIMENOrdering Facility: [facility] Address: [address] [place] [address] Performed By: #### 2 4344-4 ####[facility] LABCLIA [id number] [address] [address] [place] Oxygen saturation in Venous blood 70 % Normal 60-85 [facility] Comment on above: Order Comment: Speci men Type: VENOUS BLOOD SPECIMENOrdering Facility: [facility] Address: [address] [place] [address] Performed By: #### 2 4344-4 ####[facility] LABCLIA [id number] [place] [address] [place] Oxyhemoglobin (BldV) [Mass fraction] 68 % Normal 60-85 [facility] Comment on above: Order Comment: Speci men Type: VENOUS BLOOD SPECIMENOrdering Facility: [facility] Address: [address] [place] [address] Performed By: #### 2 4344-4 ####[facility] LABIA [id number] [place] [address] [place] pH (BldV) 7.36 [pH] Normal 7.32-7.42 [facility] Comment on above: Order Comment: Speci men Type: VENOUS BLOOD SPECIMENOrdering Facility: [facility] Address: [address] [place], [place] [address] Performed By: #### 2 4344-4 ####[facility] LABCLIA [id number] [place] [id number] [place] Potassium [Moles/Vol] 4.7 mmol/L Normal 3.5-5.0 [facility] Comment on above: Order Comment: Speci men Type: VENOUS BLOOD SPECIMENOrdering Facility: [facility] Address: [address] [place], [place] [address] Performed By: #### 2 4344-4 ####[facility] LABCLIA [id number] [place] [address] [place] Sodium [Moles/Vol] 136 mmol/L Normal 136-144 [facility] Comment on above: Order Comment: Speci men Type: VENOUS BLOOD SPECIMENOrdering Facility: [facility] Address: [address] [place] [address] Performed By: #### 2 4344-4 ####[facility]IA [id number] [place] [address] [place] Base excess Calc (BldV) [Moles/Vol] 1 mmol/L Normal 0-2 [facility] Comment on above: Order Comment: Speci men Type: VENOUS BLOOD SPECIMENOrdering Facility: [facility] Address: [address] [place] [address] Performed By: #### 2 4344-4 ####[facility] LABIA [id number] [place] [address] [place] Calcium.ionized (Bld) [Mass/Vol] 1.20 mmol/L Normal 1.08-1.30 [facility] Comment on above: Order Comment: Speci men Type: VENOUS BLOOD SPECIMENOrdering Facility: [facility] Address: [address] [place] [address] Performed By: #### 2 4344-4 ####[facility] LABIA [id number] [place] [address] [place] Calcium.ionized adjusted to pH 7.4 (BldA) [Moles/Vol] 1.17 mmol/L Normal 1.08-1.30 [facility] Comment on above: Order Comment: Speci men Type: VENOUS BLOOD SPECIMENOrdering Facility: [facility] Address: [address] [place] [address] Performed By: #### 2 4344-4 ####[facility] LABCLIA [id number] [place] [address] [place] Carboxyhemoglobin (BldV) [Mass fraction] 1.5 % Normal 0.0-2.0 [facility] Comment on above: Order Comment: Speci men Type: VENOUS BLOOD SPECIMENOrdering Facility: [facility] Address: [address] [place] [address] Result Comment: Carb oxyhemoglobin Reference Range for Smokers: 2.0-8.0% Performed By: #### 2 4344-4 ####[facility] LABCLIA [id number] [place] [address] [place] CO2 (BldV) [Partial pressure] 48 mm[Hg] Normal 42-55 [facility] Comment on above: Order Comment: Speci men Type: VENOUS BLOOD SPECIMENOrdering Facility: [facility] Address: [address] [place] [address] Performed By: #### 2 4344-4 ####[facility] LABCLIA [id number] [place] [address] [place] HCO3 (Bld) [Moles/Vol] 26 mmol/L Normal 24-28 [facility] Comment on above: Order Comment: Speci men Type: VENOUS BLOOD SPECIMENOrdering Facility: [facility] Address: [address] [place] [address] Performed By: #### 2 4344-4 ####[facility] LABCLIA [id number] [place] [address] [place] Hematocrit (Bld) [Volume fraction] 27.0 % Low 39.0-51.0 [facility] Comment on above: Order Comment: Speci men Type: VENOUS BLOOD SPECIMENOrdering Facility: [facility] Address: [address] [place] [address] Performed By: #### 2 4344-4 ####[facility] LABCLIA [id number] [place] [address] [place] Hemoglobin (Bld) [Mass/Vol] 8.7 g/dL Low 13.0-17.0 [facility] Comment on above: Order Comment: Speci men Type: VENOUS BLOOD SPECIMENOrdering Facility: [facility] Address: [address] [place] [place] [id number] Performed By: #### 2 4344-4 ####[facility] LABCLIA [id number] [place] [address] [place] Lactate [Moles/Vol] 2.0 mmol/L Normal 0.5-2.2 [facility] Comment on above: Order Comment: Speci men Type: VENOUS BLOOD SPECIMENOrdering Facility: [facility] Address: [address] [place] [address] Performed By: #### 2 4344-4 ####[facility] LABCLIA [id number] [place] [address] [place] Methemoglobin (Bld) [Mass fraction] 0.4 % Normal 0.0-1.5 [facility] Comment on above: Order Comment: Speci men Type: VENOUS BLOOD SPECIMENOrdering Facility: [facility] Address: [address] [place] [address] Performed By: #### 2 4344-4 ####[facility] LABCLIA [id number] [place] [address] [place] Oxygen (BldV) [Partial pressure] 33 mm[Hg] Low 35-45 [facility] Comment on above: Order Comment: Speci men Type: VENOUS BLOOD SPECIMENOrdering Facility: [facility] Address: [address] [place] [address] Performed By: #### 2 4344-4 ####[facility] LABCLIA [id number] [place] [address] [place] Oxygen saturation in Venous blood 60 % Normal 60-85 [facility] Comment on above: Order Comment: Speci men Type: VENOUS BLOOD SPECIMENOrdering Facility: [facility] Address: [address] [place], [place] [address] Performed By: #### 2 4344-4 ####[facility] LABCLIA [id number] [place] [address] [place] Oxyhemoglobin (BldV) [Mass fraction] 59 % Low 60-85 [facility] Comment on above: Order Comment: Speci men Type: VENOUS BLOOD SPECIMENOrdering Facility: [facility] Address: [address] [place] [address] Performed By: #### 2 4344-4 ####[facility] LABCLIA [id number] [place] [address] [place] pH (BldV) 7.35 [pH] Normal 7.32-7.42 [facility] Comment on above: Order Comment: Speci men Type: VENOUS BLOOD SPECIMENOrdering Facility: [facility] Address: [address] [place] [address] Performed By: #### 2 4344-4 ####[facility] LABCLIA [id number] [place] [address] [place] Potassium [Moles/Vol] 4.9 mmol/L Normal 3.5-5.0 [facility] Comment on above: Order Comment: Speci men Type: VENOUS BLOOD SPECIMENOrdering Facility: [facility] Address: [address] [place] [address] Performed By: #### 2 4344-4 ####[facility] LABIA [id number] [place] [address] [place] Base excess Calc (BldV) [Moles/Vol] 1 mmol/L Normal 0-2 [facility] Comment on above: Order Comment: Speci men Type: VENOUS BLOOD SPECIMENOrdering Facility: [facility] Address: [address] [place] [address] Performed By: #### 2 4344-4 ####[facility] LABCLIA [id number] [place] [address] [place] Calcium.ionized (Bld) [Mass/Vol] 1.22 mmol/L Normal 1.08-1.30 [facility] Comment on above: Order Comment: Speci men Type: VENOUS BLOOD SPECIMENOrdering Facility: [facility] Address: [address] [place] [address] Performed By: #### 2 4344-4 ####[facility] LABIA [id number] [place] [address] [place] Calcium.ionized adjusted to pH 7.4 (BldA) [Moles/Vol] 1.18 mmol/L Normal 1.08-1.30 [facility] Comment on above: Order Comment: Speci men Type: VENOUS BLOOD SPECIMENOrdering Facility: [facility] Address: [address] [place] [address] Performed By: #### 2 4344-4 ####[facility] [id number] [place] [address] [place] Carboxyhemoglobin (BldV) [Mass fraction] 0.9 % Normal 0.0-2.0 [facility] Comment on above: Order Comment: Speci men Type: VENOUS BLOOD SPECIMENOrdering Facility: [facility] Address: [address] [place] [address] Result Comment: Carb oxyhemoglobin Reference Range for Smokers: 2.0-8.0% Performed By: #### 2 4344-4 ####[facility] [id number] [place] [address] [place] CO2 (BldV) [Partial pressure] 52 mm[Hg] Normal 42-55 [facility] Comment on above: Order Comment: Speci men Type: VENOUS BLOOD SPECIMENOrdering Facility: [facility] Address: [address] [place] [address] Performed By: #### 2 4344-4 ####[facility] LABIA [id number] [place] [address] [place] Glucose [Mass/Vol] 119 mg/dL High 60-105 [facility] Comment on above: Order Comment: Speci men Type: VENOUS BLOOD SPECIMENOrdering Facility: [facility] Address: [address] [place] [address] Performed By: #### 2 4344-4 ####[facility] LABCLIA [id number] [place] [address] [place] HCO3 (Bld) [Moles/Vol] 27 mmol/L Normal 24-28 [facility] Comment on above: Order Comment: Speci men Type: VENOUS BLOOD SPECIMENOrdering Facility: [facility] Address: [address] [place] [address] Performed By: #### 2 4344-4 ####[facility] LABCLIA [id number] [place] [address] [place] Lactate [Moles/Vol] 2.4 mmol/L High 0.5-2.2 [facility] Comment on above: Order Comment: Speci men Type: VENOUS BLOOD SPECIMENOrdering Facility: [facility] Address: [address] [place] [address] Performed By: #### 2 4344-4 ####[facility] LABCLIA [id number] [place] [address] [place] Methemoglobin (Bld) [Mass fraction] 1.0 % Normal 0.0-1.5 [facility] Comment on above: Order Comment: Speci men Type: VENOUS BLOOD SPECIMENOrdering Facility: [facility] Address: [address] [place] [address] Performed By: #### 2 4344-4 ####[facility] LABCLIA [id number] [place] [address] [place] Oxygen (BldV) [Partial pressure] 37 mm[Hg] Normal 35-45 [facility] Comment on above: Order Comment: Speci men Type: VENOUS BLOOD SPECIMENOrdering Facility: [facility] Address: [address] [place] [address] Performed By: #### 2 4344-4 ####[facility] LABCLIA [id number] [address] [address] [place] Oxygen saturation in Venous blood 66 % Normal 60-85 [facility] Comment on above: Order Comment: Speci men Type: VENOUS BLOOD SPECIMENOrdering Facility: [facility] Address: [address] [place] [id number] Performed By: #### 2 4344-4 ####[facility] LABCLIA [id number] [place] [address] [place] Oxyhemoglobin (BldV) [Mass fraction] 65 % Normal 60-85 [facility] Comment on above: Order Comment: Speci men Type: VENOUS BLOOD SPECIMENOrdering Facility: [facility] Address: [address] [place] [address] Performed By: #### 2 4344-4 ####[facility] LABIA [id number] [place] [address] [place] pH (BldV) 7.33 [pH] Normal 7.32-7.42 [facility] Comment on above: Order Comment: Speci men Type: VENOUS BLOOD SPECIMENOrdering Facility: [facility] Address: [address] [place], [place] [address] Performed By: #### 2 4344-4 ####[facility] LABIA [id number] [place] [address] [place] Potassium [Moles/Vol] 4.8 mmol/L Normal 3.5-5.0 [facility] Comment on above: Order Comment: Speci men Type: VENOUS BLOOD SPECIMENOrdering Facility: [facility] Address: [address] [place] [address] Performed By: #### 2 4344-4 ####[facility] LABCLIA [id number] [place] [id number] [place] Sodium [Moles/Vol] 137 mmol/L Normal 136-144 [facility] Comment on above: Order Comment: Speci men Type: VENOUS BLOOD SPECIMENOrdering Facility: [facility] Address: [address] [place] [address] Performed By: #### 2 4344-4 ####[facility] [id number] [place] [address] [place] Base excess Calc (BldV) [Moles/Vol] 0 mmol/L Normal 0-2 [facility] Comment on above: Order Comment: Speci men Type: VENOUS BLOOD SPECIMENOrdering Facility: [facility] Address: [address] [place] [address] Performed By: #### 2 4344-4 ####[facility] [id number] [place] [address] [place] Calcium.ionized (Bld) [Mass/Vol] 1.22 mmol/L Normal 1.08-1.30 [facility] Comment on above: Order Comment: Speci men Type: VENOUS BLOOD SPECIMENOrdering Facility: [facility] Address: [address] [place] [address] Performed By: #### 2 4344-4 ####[facility] [id number] [place] [address] [place] Calcium.ionized adjusted to pH 7.4 (BldA) [Moles/Vol] 1.16 mmol/L Normal 1.08-1.30 [facility] Comment on above: Order Comment: Speci men Type: VENOUS BLOOD SPECIMENOrdering Facility: [facility] Address: [address] [place] [address] Performed By: #### 2 4344-4 ####[facility] [id number] [place] [address] [place] Carboxyhemoglobin (BldV) [Mass fraction] 1.5 % Normal 0.0-2.0 [facility] Comment on above: Order Comment: Speci men Type: VENOUS BLOOD SPECIMENOrdering Facility: [facility] Address: [address] [place] [address] Result Comment: Carb oxyhemoglobin Reference Range for Smokers: 2.0-8.0% Performed By: #### 2 4344-4 ####[facility] LABCLIA [id number] [place] [address] [place] CO2 (BldV) [Partial pressure] 55 mm[Hg] Normal 42-55 [facility] Comment on above: Order Comment: Speci men Type: VENOUS BLOOD SPECIMENOrdering Facility: [facility] Address: [address] [place] [address] Performed By: #### 2 4344-4 ####[facility] LABCLIA [id number] [place] [address] [place] Glucose [Mass/Vol] 131 mg/dL High 60-105 [facility] Comment on above: Order Comment: Speci men Type: VENOUS BLOOD SPECIMENOrdering Facility: [facility] Address: [address] [place] [address] Performed By: #### 2 4344-4 ####[facility] LABCLIA [id number] [place] [address] [place] HCO3 (Bld) [Moles/Vol] 27 mmol/L Normal 24-28 [facility] Comment on above: Order Comment: Speci men Type: VENOUS BLOOD SPECIMENOrdering Facility: [facility] Address: [address] [place] [address] Performed By: #### 2 4344-4 ####[facility] LABCLIA [id number] [place] [address] [place] Hematocrit (Bld) [Volume fraction] 27.0 % Low 39.0-51.0 [facility] Comment on above: Order Comment: Speci men Type: VENOUS BLOOD SPECIMENOrdering Facility: [facility] Address: [address] [place] [address] Performed By: #### 2 4344-4 ####[facility] LABCLIA [id number] [place] [address] [place] Hemoglobin (Bld) [Mass/Vol] 8.7 g/dL Low 13.0-17.0 [facility] Comment on above: Order Comment: Speci men Type: VENOUS BLOOD SPECIMENOrdering Facility: [facility] Address: [address] [place] [address] Performed By: #### 2 4344-4 ####[facility] LABCLIA [id number] [place] [address] [place] Lactate [Moles/Vol] 2.5 mmol/L High 0.5-2.2 [facility] Comment on above: Order Comment: Speci men Type: VENOUS BLOOD SPECIMENOrdering Facility: [facility] Address: [address] [place] [address] Performed By: #### 2 4344-4 ####[facility] LABCLIA [id number] [place] [address] [place] Methemoglobin (Bld) [Mass fraction] 0.5 % Normal 0.0-1.5 [facility] Comment on above: Order Comment: Speci men Type: VENOUS BLOOD SPECIMENOrdering Facility: [facility] Address: [address] [place] [address] Performed By: #### 2 4344-4 ####[facility] LABCLIA [id number] [place] [address] [place] Oxygen (BldV) [Partial pressure] 41 mm[Hg] Normal 35-45 [facility] Comment on above: Order Comment: Speci men Type: VENOUS BLOOD SPECIMENOrdering Facility: [facility] Address: [address] [place] [address] Performed By: #### 2 4344-4 ####[facility] LABCLIA [id number] [place] [address] [place] Oxygen saturation in Venous blood 69 % Normal 60-85 [facility] Comment on above: Order Comment: Speci men Type: VENOUS BLOOD SPECIMENOrdering Facility: [facility] Address: [address] [place], [place] [address] Performed By: #### 2 4344-4 ####[facility] LABCLIA [id number] [place] [address] [place] Oxyhemoglobin (BldV) [Mass fraction] 68 % Normal 60-85 [facility] Comment on above: Order Comment: Speci men Type: VENOUS BLOOD SPECIMENOrdering Facility: [facility] Address: [address] [place] [address] Performed By: #### 2 4344-4 ####[facility] LABCLIA [id number] [place] [address] [place] pH (BldV) 7.31 [pH] Low 7.32-7.42 [facility] Comment on above: Order Comment: Speci men Type: VENOUS BLOOD SPECIMENOrdering Facility: [facility] Address: [address] [place] [address] Performed By: #### 2 4344-4 ####[facility] LABCLIA [id number] [place] [address] [place] Sodium [Moles/Vol] 137 mmol/L Normal 136-144 [facility] Comment on above: Order Comment: Speci men Type: VENOUS BLOOD SPECIMENOrdering Facility: [facility] Address: [address] [place] [address] Performed By: #### 2 4344-4 ####[facility] LABCLIA [id number] [place] [address] [place] BASE DEFICIT, VENOUS -1 mmol/L Normal -2-0 [facility] Comment on above: Order Comment: Speci men Type: VENOUS BLOOD SPECIMENOrdering Facility: [facility] Address: [address] [place], [place] [address] Performed By: #### 2 4344-4 ####[facility] LABCLIA [id number] [place] [address] [place] Calcium.ionized (Bld) [Mass/Vol] 1.23 mmol/L Normal 1.08-1.30 [facility] Comment on above: Order Comment: Speci men Type: VENOUS BLOOD SPECIMENOrdering Facility: [facility] Address: [address] [place] [address] Performed By: #### 2 4344-4 ####[facility] LABIA [id number] [place] [address] [place] Calcium.ionized adjusted to pH 7.4 (BldA) [Moles/Vol] 1.16 mmol/L Normal 1.08-1.30 [facility] Comment on above: Order Comment: Speci men Type: VENOUS BLOOD SPECIMENOrdering Facility: [facility] Address: [address] [place] [address] Performed By: #### 2 4344-4 ####[facility] [id number] [place] [address] [place] Carboxyhemoglobin (BldV) [Mass fraction] 1.7 % Normal 0.0-2.0 [facility] Comment on above: Order Comment: Speci men Type: VENOUS BLOOD SPECIMENOrdering Facility: [facility] Address: [address] [place] [address] Result Comment: Carb oxyhemoglobin Reference Range for Smokers: 2.0-8.0% Performed By: #### 2 4344-4 ####[facility] LABIA [id number] [place] [address] [place] CO2 (BldV) [Partial pressure] 52 mm[Hg] Normal 42-55 [facility] Comment on above: Order Comment: Speci men Type: VENOUS BLOOD SPECIMENOrdering Facility: [facility] Address: [address] [place] [address] Performed By: #### 2 4344-4 ####[facility] LABIA [id number] [place] [id number] [place] Glucose [Mass/Vol] 178 mg/dL High 60-105 [facility] Comment on above: Order Comment: Speci men Type: VENOUS BLOOD SPECIMENOrdering Facility: [facility] Address: [address] [place] [address] Performed By: #### 2 4344-4 ####[facility] LABCLIA [id number] [place] [address] [place] HCO3 (Bld) [Moles/Vol] 25 mmol/L Normal 24-28 [facility] Comment on above: Order Comment: Speci men Type: VENOUS BLOOD SPECIMENOrdering Facility: [facility] Address: [address] [place] [address] Performed By: #### 2 4344-4 ####[facility] LABCLIA [id number] [place] [address] [place] Hematocrit (Bld) [Volume fraction] 26.6 % Low 39.0-51.0 [facility] Comment on above: Order Comment: Speci men Type: VENOUS BLOOD SPECIMENOrdering Facility: [facility] Address: [address] [place] [address] Performed By: #### 2 4344-4 ####[facility] LABCLIA [id number] [place] [address] [place] Hemoglobin (Bld) [Mass/Vol] 8.6 g/dL Low 13.0-17.0 [facility] Comment on above: Order Comment: Speci men Type: VENOUS BLOOD SPECIMENOrdering Facility: [facility] Address: [address] [place] [address] Performed By: #### 2 4344-4 ####[facility] LABCLIA [id number] [place] [address] [place] Lactate [Moles/Vol] 3.8 mmol/L High 0.5-2.2 [facility] Comment on above: Order Comment: Speci men Type: VENOUS BLOOD SPECIMENOrdering Facility: [facility] Address: [address] [place] [address] Performed By: #### 2 4344-4 ####[facility] LABCLIA [id number] [address] [address] [place] Methemoglobin (Bld) [Mass fraction] 1.0 % Normal 0.0-1.5 [facility] Comment on above: Order Comment: Speci men Type: VENOUS BLOOD SPECIMENOrdering Facility: [facility] Address: [address] [place], [place] [address] Performed By: #### 2 4344-4 ####[facility] LABIA [id number] [address] [address] [place] Oxygen (BldV) [Partial pressure] 41 mm[Hg] Normal 35-45 [facility] Comment on above: Order Comment: Speci men Type: VENOUS BLOOD SPECIMENOrdering Facility: [facility] Address: [address] [place] [address] Performed By: #### 2 4344-4 ####[facility] LABCLIA [id number] [address] [address] [place] Oxygen saturation in Venous blood 69 % Normal 60-85 [facility] Comment on above: Order Comment: Speci men Type: VENOUS BLOOD SPECIMENOrdering Facility: [facility] Address: [address] [place] [address] Performed By: #### 2 4344-4 ####[facility] LABCLIA [id number] [address] [address] [place] Oxyhemoglobin (BldV) [Mass fraction] 67 % Normal 60-85 [facility] Comment on above: Order Comment: Speci men Type: VENOUS BLOOD SPECIMENOrdering Facility: [facility] Address: [address] [place] [address] Performed By: #### 2 4344-4 ####[facility] LABCLIA [id number] [place] [address] [place] pH (BldV) 7.30 [pH] Low 7.32-7.42 [facility] Comment on above: Order Comment: Speci men Type: VENOUS BLOOD SPECIMENOrdering Facility: [facility] Address: [address] [place] [address] Performed By: #### 2 4344-4 ####[facility] LABIA [id number] [place] [address] [place] Potassium [Moles/Vol] 4.7 mmol/L Normal 3.5-5.0 [facility] Comment on above: Order Comment: Speci men Type: VENOUS BLOOD SPECIMENOrdering Facility: [facility] Address: [address] [place] [address] Performed By: #### 2 4344-4 ####[facility] LABIA [id number] [place] [address] [place] BASE DEFICIT, VENOUS -2 mmol/L Normal -2-0 [facility] Comment on above: Order Comment: Speci men Type: VENOUS BLOOD SPECIMENOrdering Facility: [facility] Address: [address] [place] [address] Performed By: #### 2 4344-4 ####[facility] LABIA [id number] [place] [address] [place] Calcium.ionized (Bld) [Mass/Vol] 1.21 mmol/L Normal 1.08-1.30 [facility] Comment on above: Order Comment: Speci men Type: VENOUS BLOOD SPECIMENOrdering Facility: [facility] Address: [address] [place] [address] Performed By: #### 2 4344-4 ####[facility] LABIA [id number] [place] [address] [place] Calcium.ionized adjusted to pH 7.4 (BldA) [Moles/Vol] 1.15 mmol/L Normal 1.08-1.30 [facility] Comment on above: Order Comment: Speci men Type: VENOUS BLOOD SPECIMENOrdering Facility: [facility] Address: [address] [place] [address] Performed By: #### 2 4344-4 ####[facility] LABCLIA [id number] [place] [address] [place] Carboxyhemoglobin (BldV) [Mass fraction] 1.0 % Normal 0.0-2.0 [facility] Comment on above: Order Comment: Speci men Type: VENOUS BLOOD SPECIMENOrdering Facility: [facility] Address: [address] [place] [address] Result Comment: Carb oxyhemoglobin Reference Range for Smokers: 2.0-8.0% Performed By: #### 2 4344-4 ####[facility] LABCLIA [id number] [place] [address] [place] CO2 (BldV) [Partial pressure] 50 mm[Hg] Normal 42-55 [facility] Comment on above: Order Comment: Speci men Type: VENOUS BLOOD SPECIMENOrdering Facility: [facility] Address: [address] [place] [address] Performed By: #### 2 4344-4 ####[facility] LABCLIA [id number] [place] [address] [place] Glucose [Mass/Vol] 169 mg/dL High 60-105 [facility] Comment on above: Order Comment: Speci men Type: VENOUS BLOOD SPECIMENOrdering Facility: [facility] Address: [address] [place] [address] Performed By: #### 2 4344-4 ####[facility] LABCLIA [id number] [place] [address] [place] HCO3 (Bld) [Moles/Vol] 24 mmol/L Normal 24-28 [facility] Comment on above: Order Comment: Speci men Type: VENOUS BLOOD SPECIMENOrdering Facility: [facility] Address: [address] [place] [address] Performed By: #### 2 4344-4 ####[facility] LABCLIA [id number] [place] [address] [place] Hematocrit (Bld) [Volume fraction] 28.3 % Low 39.0-51.0 [facility] Comment on above: Order Comment: Speci men Type: VENOUS BLOOD SPECIMENOrdering Facility: [facility] Address: [address] [place] [address] Performed By: #### 2 4344-4 ####[facility] LABCLIA [id number] [place] [address] [place] Hemoglobin (Bld) [Mass/Vol] 9.1 g/dL Low 13.0-17.0 [facility] Comment on above: Order Comment: Speci men Type: VENOUS BLOOD SPECIMENOrdering Facility: [facility] Address: [address] [place] [address] Performed By: #### 2 4344-4 ####[facility] LABCLIA [id number] [place] [address] [place] Lactate [Moles/Vol] 4.8 mmol/L High 0.5-2.2 [facility] Comment on above: Order Comment: Speci men Type: VENOUS BLOOD SPECIMENOrdering Facility: [facility] Address: [address] [place] [address] Performed By: #### 2 4344-4 ####[facility] LABCLIA [id number] [place] [address] [place] Methemoglobin (Bld) [Mass fraction] 0.9 % Normal 0.0-1.5 [facility] Comment on above: Order Comment: Speci men Type: VENOUS BLOOD SPECIMENOrdering Facility: [facility] Address: [address] [place] [address] Performed By: #### 2 4344-4 ####[facility] LABCLIA [id number] [address] [address] [place] Oxygen (BldV) [Partial pressure] 40 mm[Hg] Normal 35-45 [facility] Comment on above: Order Comment: Speci men Type: VENOUS BLOOD SPECIMENOrdering Facility: [facility] Address: [address] [place], [place] [address] Performed By: #### 2 4344-4 ####[facility] LABIA [id number] [place] [address] [place] Oxygen saturation in Venous blood 69 % Normal 60-85 [facility] Comment on above: Order Comment: Speci men Type: VENOUS BLOOD SPECIMENOrdering Facility: [facility] Address: [address] [place], [place] [address] Performed By: #### 2 4344-4 ####[facility] LABIA [id number] [place] [address] [place] Oxyhemoglobin (BldV) [Mass fraction] 68 % Normal 60-85 [facility] Comment on above: Order Comment: Speci men Type: VENOUS BLOOD SPECIMENOrdering Facility: [facility] Address: [address] [place] [address] Performed By: #### 2 4344-4 ####[facility] LABIA [id number] [place] [id number] [place] pH (BldV) 7.30 [pH] Low 7.32-7.42 [facility] Comment on above: Order Comment: Speci men Type: VENOUS BLOOD SPECIMENOrdering Facility: [facility] Address: [address] [place] [address] Performed By: #### 2 4344-4 ####[facility] LABIA [id number] [address] [address] [place] Sodium [Moles/Vol] 139 mmol/L Normal 136-144 [facility] Comment on above: Order Comment: Speci men Type: VENOUS BLOOD SPECIMENOrdering Facility: [facility] Address: [address] [place] [address] Performed By: #### 2 4344-4 ####[facility] LABIA [id number] [place] [address] [place] BASE DEFICIT, VENOUS -2 mmol/L Normal -2-0 [facility] Comment on above: Order Comment: Speci men Type: VENOUS BLOOD SPECIMENOrdering Facility: [facility] Address: [address] [place] [address] Performed By: #### 2 4344-4 ####[facility] LABIA [id number] [place] [address] [place] Calcium.ionized (Bld) [Mass/Vol] 1.24 mmol/L Normal 1.08-1.30 [facility] Comment on above: Order Comment: Speci men Type: VENOUS BLOOD SPECIMENOrdering Facility: [facility] Address: [address] [place] [address] Performed By: #### 2 4344-4 ####[facility] LABIA [id number] [place] [address] [place] Calcium.ionized adjusted to pH 7.4 (BldA) [Moles/Vol] 1.19 mmol/L Normal 1.08-1.30 [facility] Comment on above: Order Comment: Speci men Type: VENOUS BLOOD SPECIMENOrdering Facility: [facility] Address: [address] [place] [address] Performed By: #### 2 4344-4 ####[facility] LABIA [id number] [place] [address] [place] Carboxyhemoglobin (BldV) [Mass fraction] 1.2 % Normal 0.0-2.0 [facility] Comment on above: Order Comment: Speci men Type: VENOUS BLOOD SPECIMENOrdering Facility: [facility] Address: [address] [place] [address] Result Comment: Carb oxyhemoglobin Reference Range for Smokers: 2.0-8.0% Performed By: #### 2 4344-4 ####[facility] LABCLIA [id number] [place] [address] [place] CO2 (BldV) [Partial pressure] 48 mm[Hg] Normal 42-55 [facility] Comment on above: Order Comment: Speci men Type: VENOUS BLOOD SPECIMENOrdering Facility: [facility] Address: [address] [place] [address] Performed By: #### 2 4344-4 ####[facility] LABCLIA [id number] [place] [address] [place] Glucose [Mass/Vol] 168 mg/dL High 60-105 [facility] Comment on above: Order Comment: Speci men Type: VENOUS BLOOD SPECIMENOrdering Facility: [facility] Address: [address] [place] [address] Performed By: #### 2 4344-4 ####[facility] LABCLIA [id number] [place] [address] [place] HCO3 (Bld) [Moles/Vol] 24 mmol/L Normal 24-28 [facility] Comment on above: Order Comment: Speci men Type: VENOUS BLOOD SPECIMENOrdering Facility: [facility] Address: [address] [place] [address] Performed By: #### 2 4344-4 ####[facility] LABCLIA [id number] [place] [address] [place] Hematocrit (Bld) [Volume fraction] 30.2 % Low 39.0-51.0 [facility] Comment on above: Order Comment: Speci men Type: VENOUS BLOOD SPECIMENOrdering Facility: [facility] Address: [address] [place] [address] Performed By: #### 2 4344-4 ####[facility] LABCLIA [id number] [place] [address] [place] Lactate [Moles/Vol] 4.7 mmol/L High 0.5-2.2 [facility] [facility] Comment on above: Order Comment: Speci men Type: VENOUS BLOOD SPECIMENOrdering Facility: [facility] Address: [address] [place] [address] Performed By: #### 2 4344-4 ####[facility] LABCLIA [id number] [place] [address] [place] Methemoglobin (Bld) [Mass fraction] 0.7 % Normal 0.0-1.5 [facility] Comment on above: Order Comment: Speci men Type: VENOUS BLOOD SPECIMENOrdering Facility: [facility] Address: [address] [place] [address] Performed By: #### 2 4344-4 ####[facility] LABCLIA [id number] [place] [address] [place] Oxygen (BldV) [Partial pressure] 43 mm[Hg] Normal 35-45 [facility] Comment on above: Order Comment: Speci men Type: VENOUS BLOOD SPECIMENOrdering Facility: [facility] Address: [address] [place] [address] Performed By: #### 2 4344-4 ####[facility] LABCLIA [id number] [place] [address] [place] Oxygen saturation in Venous blood 74 % Normal 60-85 [facility] Comment on above: Order Comment: Speci men Type: VENOUS BLOOD SPECIMENOrdering Facility: [facility] Address: [address] [place], [place] [address] Performed By: #### 2 4344-4 ####[facility] LABCLIA [id number] [place] [address] [place] Oxyhemoglobin (BldV) [Mass fraction] 72 % Normal 60-85 [facility] Comment on above: Order Comment: Speci men Type: VENOUS BLOOD SPECIMENOrdering Facility: [facility] Address: [address] [place] [address] Performed By: #### 2 4344-4 ####[facility] LABCLIA [id number] [place] [address] [place] pH (BldV) 7.32 [pH] Normal 7.32-7.42 [facility] Comment on above: Order Comment: Speci men Type: VENOUS BLOOD SPECIMENOrdering Facility: [facility] Address: [address] [place] [address] Performed By: #### 2 4344-4 ####[facility] LABCLIA [id number] [place] [address] [place] Potassium [Moles/Vol] 4.9 mmol/L Normal 3.5-5.0 [facility] Comment on above: Order Comment: Speci men Type: VENOUS BLOOD SPECIMENOrdering Facility: [facility] Address: [address] [place] [address] Performed By: #### 2 4344-4 ####[facility] LABIA [id number] [place] [address] [place] Sodium [Moles/Vol] 140 mmol/L Normal 136-144 [facility] Comment on above: Order Comment: Speci men Type: VENOUS BLOOD SPECIMENOrdering Facility: [facility] Address: [address] [place] [address] Performed By: #### 2 4344-4 ####[facility] LABCLIA [id number] [place] [address] [place] BASE DEFICIT, VENOUS -3 mmol/L Low -2-0 [facility] Comment on above: Order Comment: Speci men Type: VENOUS BLOOD SPECIMENOrdering Facility: [facility] Address: [address] [place] [address] Performed By: #### 2 4344-4 ####[facility] LABCLIA [id number] [place] [address] [place] Calcium.ionized adjusted to pH 7.4 (BldA) [Moles/Vol] 1.18 mmol/L Normal 1.08-1.30 [facility] Comment on above: Order Comment: Speci men Type: VENOUS BLOOD SPECIMENOrdering Facility: [facility] Address: [address] [place] [address] Performed By: #### 2 4344-4 ####[facility] LABIA [id number] [place] [address] [place] Carboxyhemoglobin (BldV) [Mass fraction] 1.3 % Normal 0.0-2.0 [facility] Comment on above: Order Comment: Speci men Type: VENOUS BLOOD SPECIMENOrdering Facility: [facility] Address: [address] [place] [address] Result Comment: Carb oxyhemoglobin Reference Range for Smokers: 2.0-8.0% Performed By: #### 2 4344-4 ####[facility] LABIA [id number] [place] [address] [place] CO2 (BldV) [Partial pressure] 47 mm[Hg] Normal 42-55 [facility] Comment on above: Order Comment: Speci men Type: VENOUS BLOOD SPECIMENOrdering Facility: [facility] Address: [address] [place] [address] Performed By: #### 2 4344-4 ####[facility] LABIA [id number] [place] [address] [place] Glucose [Mass/Vol] 121 mg/dL High 60-105 [facility] Comment on above: Order Comment: Speci men Type: VENOUS BLOOD SPECIMENOrdering Facility: [facility] Address: [address] [place] [address] Performed By: #### 2 4344-4 ####[facility] LABIA [id number] [place] [address] [place] HCO3 (Bld) [Moles/Vol] 23 mmol/L Low 24-28 [facility] Comment on above: Order Comment: Speci men Type: VENOUS BLOOD SPECIMENOrdering Facility: [facility] Address: [address] [place] [address] Performed By: #### 2 4344-4 ####[facility] LABCLIA [id number] [place] [address] [place] Hematocrit (Bld) [Volume fraction] 30.9 % Low 39.0-51.0 [facility] Comment on above: Order Comment: Speci men Type: VENOUS BLOOD SPECIMENOrdering Facility: [facility] Address: [address] [place] [address] Performed By: #### 2 4344-4 ####[facility] LABCLIA [id number] [place] [address] [place] Hemoglobin (Bld) [Mass/Vol] 10.0 g/dL Low 13.0-17.0 [facility] Comment on above: Order Comment: Speci men Type: VENOUS BLOOD SPECIMENOrdering Facility: [facility] Address: [address] [place] [address] Performed By: #### 2 4344-4 ####[facility] LABCLIA [id number] [place] [address] [place] Lactate [Moles/Vol] 7.0 mmol/L High 0.5-2.2 [facility] Comment on above: Order Comment: Speci men Type: VENOUS BLOOD SPECIMENOrdering Facility: [facility] Address: [address] [place] [address] Performed By: #### 2 4344-4 ####[facility] LABCLIA [id number] [place] [address] [place] Methemoglobin (Bld) [Mass fraction] 1.5 % Normal 0.0-1.5 [facility] Comment on above: Order Comment: Speci men Type: VENOUS BLOOD SPECIMENOrdering Facility: [facility] Address: [address] [place] [id number] Performed By: #### 2 4344-4 ####[facility] LABCLIA [id number] [address] [address] [place] Oxygen (BldV) [Partial pressure] 41 mm[Hg] Normal 35-45 [facility] Comment on above: Order Comment: Speci men Type: VENOUS BLOOD SPECIMENOrdering Facility: [facility] Address: [address] [place] [address] Performed By: #### 2 4344-4 ####[facility] LABCLIA [id number] [place] [address] [place] Oxygen saturation in Venous blood 70 % Normal 60-85 [facility] Comment on above: Order Comment: Speci men Type: VENOUS BLOOD SPECIMENOrdering Facility: [facility] Address: [address] [place] [address] Performed By: #### 2 4344-4 ####[facility] LABCLIA [id number] [place] [address] [place] Oxyhemoglobin (BldV) [Mass fraction] 68 % Normal 60-85 [facility] Comment on above: Order Comment: Speci men Type: VENOUS BLOOD SPECIMENOrdering Facility: [facility] Address: [address] [place] [address] Performed By: #### 2 4344-4 ####[facility] LABCLIA [id number] [place] [id number] [place] pH (BldV) 7.31 [pH] Low 7.32-7.42 [facility] Comment on above: Order Comment: Speci men Type: VENOUS BLOOD SPECIMENOrdering Facility: [facility] Address: [address] [place], [place] [address] Performed By: #### 2 4344-4 ####[facility] LABCLIA [id number] [place] [id number] [place] Potassium [Moles/Vol] 4.3 mmol/L Normal 3.5-5.0 [facility] Comment on above: Order Comment: Speci men Type: VENOUS BLOOD SPECIMENOrdering Facility: [facility] Address: [address] [place] [address] Performed By: #### 2 4344-4 ####[facility] LABCLIA [id number] [place] [address] [place] BASE DEFICIT, VENOUS -5 mmol/L Low -2-0 [facility] Comment on above: Order Comment: Speci men Type: VENOUS BLOOD SPECIMENOrdering Facility: [facility] Address: [address] [place] [address] Performed By: #### 2 4344-4 ####[facility] LABIA [id number] [place] [address] [place] Calcium.ionized (Bld) [Mass/Vol] 1.26 mmol/L Normal 1.08-1.30 [facility] Comment on above: Order Comment: Speci men Type: VENOUS BLOOD SPECIMENOrdering Facility: [facility] Address: [address] [place] [address] Performed By: #### 2 4344-4 ####[facility] LABIA [id number] [place] [address] [place] Calcium.ionized adjusted to pH 7.4 (BldA) [Moles/Vol] 1.16 mmol/L Normal 1.08-1.30 [facility] Comment on above: Order Comment: Speci men Type: VENOUS BLOOD SPECIMENOrdering Facility: [facility] Address: [address] [place] [address] Performed By: #### 2 4344-4 ####[facility] LABCLIA [id number] [place] [address] [place] Carboxyhemoglobin (BldV) [Mass fraction] 1.3 % Normal 0.0-2.0 [facility] Comment on above: Order Comment: Speci men Type: VENOUS BLOOD SPECIMENOrdering Facility: [facility] Address: [address] [place] [address] Result Comment: Carb oxyhemoglobin Reference Range for Smokers: 2.0-8.0% Performed By: #### 2 4344-4 ####[facility] LABCLIA [id number] [place] [address] [place] CO2 (BldV) [Partial pressure] 50 mm[Hg] Normal 42-55 [facility] Comment on above: Order Comment: Speci men Type: VENOUS BLOOD SPECIMENOrdering Facility: [facility] Address: [address] [place] [address] Performed By: #### 2 4344-4 ####[facility] LABCLIA [id number] [place] [address] [place] Glucose [Mass/Vol] 123 mg/dL High 60-105 [facility] Comment on above: Order Comment: Speci men Type: VENOUS BLOOD SPECIMENOrdering Facility: [facility] Address: [address] [place] [address] Performed By: #### 2 4344-4 ####[facility] LABCLIA [id number] [place] [address] [place] HCO3 (Bld) [Moles/Vol] 22 mmol/L Low 24-28 [facility] Comment on above: Order Comment: Speci men Type: VENOUS BLOOD SPECIMENOrdering Facility: [facility] Address: [address] [place] [address] Performed By: #### 2 4344-4 ####[facility] LABCLIA [id number] [place] [address] [place] Hematocrit (Bld) [Volume fraction] 28.5 % Low 39.0-51.0 [facility] Comment on above: Order Comment: Speci men Type: VENOUS BLOOD SPECIMENOrdering Facility: [facility] Address: [address] [place] [address] Performed By: #### 2 4344-4 ####[facility] LABCLIA [id number] [place] [address] [place] Hemoglobin (Bld) [Mass/Vol] 9.2 g/dL Low 13.0-17.0 [facility] Comment on above: Order Comment: Speci men Type: VENOUS BLOOD SPECIMENOrdering Facility: [facility] Address: [address] [place] [address] Performed By: #### 2 4344-4 ####[facility] LABIA [id number] [place] [address] [place] Lactate [Moles/Vol] 8.3 mmol/L High 0.5-2.2 [facility] Comment on above: Order Comment: Speci men Type: VENOUS BLOOD SPECIMENOrdering Facility: [facility] Address: [address] [place] [address] Performed By: #### 2 4344-4 ####[facility] LABIA [id number] [place] [address] [place] Methemoglobin (Bld) [Mass fraction] 1.1 % Normal 0.0-1.5 [facility] Comment on above: Order Comment: Speci men Type: VENOUS BLOOD SPECIMENOrdering Facility: [facility] Address: [address] [place] [address] Performed By: #### 2 4344-4 ####[facility] LABIA [id number] [place] [id number] [place] Oxygen (BldV) [Partial pressure] 43 mm[Hg] Normal 35-45 [facility] Comment on above: Order Comment: Speci men Type: VENOUS BLOOD SPECIMENOrdering Facility: [facility] Address: [address] [place], [place] [address] Performed By: #### 2 4344-4 ####[facility] LABIA [id number] [place] [address] [address] [place] Oxygen saturation in Venous blood 68 % Normal 60-85 [facility] Comment on above: Order Comment: Speci men Type: VENOUS BLOOD SPECIMENOrdering Facility: [facility] Address: [address] [place] [address] Performed By: #### 2 4344-4 ####[facility] LABCLIA [id number] [address] [address] [place] Oxyhemoglobin (BldV) [Mass fraction] 66 % Normal 60-85 [facility] Comment on above: Order Comment: Speci men Type: VENOUS BLOOD SPECIMENOrdering Facility: [facility] Address: [address] [place] [address] Performed By: #### 2 4344-4 ####[facility] LABCLIA [id number] [place] [address] [place] PEEP/CPAP 8 cmH2O Normal [facility] Comment on above: Order Comment: Speci men Type: VENOUS BLOOD SPECIMENOrdering Facility: [facility] Address: [address] [place], [place] [address] Performed By: #### 2 4344-4 ####[facility] LABCLIA [id number] [place] [address] [place] pH (BldV) 7.26 [pH] Low 7.32-7.42 [facility] Comment on above: Order Comment: Speci men Type: VENOUS BLOOD SPECIMENOrdering Facility: [facility] Address: [address] [place], [place] [address] Performed By: #### 2 4344-4 ####[facility] LABCLIA [id number] [place] [address] [place] Sodium [Moles/Vol] 141 mmol/L Normal 136-144 [facility] Comment on above: Order Comment: Speci men Type: VENOUS BLOOD SPECIMENOrdering Facility: [facility] Address: [address] [place], [place] [address] Performed By: #### 2 4344-4 ####[facility] LABCLIA [id number] [place] [address] [place] BASE DEFICIT, VENOUS -6 mmol/L Low -2-0 [facility] Comment on above: Order Comment: Speci men Type: VENOUS BLOOD SPECIMENOrdering Facility: [facility] Address: [address] [place] [address] Performed By: #### 2 4344-4 ####[facility] LABIA [id number] [place] [address] [place] Calcium.ionized (Bld) [Mass/Vol] 1.23 mmol/L Normal 1.08-1.30 [facility] Comment on above: Order Comment: Speci men Type: VENOUS BLOOD SPECIMENOrdering Facility: [facility] Address: [address] [place] [address] Performed By: #### 2 4344-4 ####[facility] LABIA [id number] [place] [address] [place] Calcium.ionized adjusted to pH 7.4 (BldA) [Moles/Vol] 1.13 mmol/L Normal 1.08-1.30 [facility] Comment on above: Order Comment: Speci men Type: VENOUS BLOOD SPECIMENOrdering Facility: [facility] Address: [address] [place] [address] Performed By: #### 2 4344-4 ####[facility] LABIA [id number] [place] [address] [place] Carboxyhemoglobin (BldV) [Mass fraction] 1.4 % Normal 0.0-2.0 [facility] Comment on above: Order Comment: Speci men Type: VENOUS BLOOD SPECIMENOrdering Facility: [facility] Address: [address] [place] [address] Result Comment: Carb oxyhemoglobin Reference Range for Smokers: 2.0-8.0% Performed By: #### 2 4344-4 ####[facility] LABCLIA [id number] [place] [address] [place] CO2 (BldV) [Partial pressure] 50 mm[Hg] Normal 42-55 [facility] Comment on above: Order Comment: Speci men Type: VENOUS BLOOD SPECIMENOrdering Facility: [facility] Address: [address] [place] [address] Performed By: #### 2 4344-4 ####[facility] LABCLIA [id number] [place] [address] [place] HCO3 (Bld) [Moles/Vol] 21 mmol/L Low 24-28 [facility] Comment on above: Order Comment: Speci men Type: VENOUS BLOOD SPECIMENOrdering Facility: [facility] Address: [address] [place] [address] Performed By: #### 2 4344-4 ####[facility] LABCLIA [id number] [place] [address] [place] Hematocrit (Bld) [Volume fraction] 30.5 % Low 39.0-51.0 [facility] Comment on above: Order Comment: Speci men Type: VENOUS BLOOD SPECIMENOrdering Facility: [facility] Address: [address] [place] [address] Performed By: #### 2 4344-4 ####[facility] LABCLIA [id number] [place] [address] [place] Hemoglobin (Bld) [Mass/Vol] 9.9 g/dL Low 13.0-17.0 [facility] Comment on above: Order Comment: Speci men Type: VENOUS BLOOD SPECIMENOrdering Facility: [facility] Address: [address] [place] [address] Performed By: #### 2 4344-4 ####[facility] LABCLIA [id number] [place] [address] [place] Lactate [Moles/Vol] 8.2 mmol/L High 0.5-2.2 [facility] Comment on above: Order Comment: Speci men Type: VENOUS BLOOD SPECIMENOrdering Facility: [facility] Address: [address] [place] [address] Performed By: #### 2 4344-4 ####[facility] LABCLIA [id number] [address] [address] [place] Methemoglobin (Bld) [Mass fraction] 1.0 % Normal 0.0-1.5 [facility] Comment on above: Order Comment: Speci men Type: VENOUS BLOOD SPECIMENOrdering Facility: [facility] Address: [address] [place] [address] Performed By: #### 2 4344-4 ####[facility] LABCLIA [id number] [address] [address] [place] Oxygen (BldV) [Partial pressure] 40 mm[Hg] Normal 35-45 [facility] Comment on above: Order Comment: Speci men Type: VENOUS BLOOD SPECIMENOrdering Facility: [facility] Address: [address] [place] [address] Performed By: #### 2 4344-4 ####[facility] LABCLIA [id number] [address] [address] [place] Oxygen saturation in Venous blood 63 % Normal 60-85 [facility] Comment on above: Order Comment: Speci men Type: VENOUS BLOOD SPECIMENOrdering Facility: [facility] Address: [address] [place] [address] Performed By: #### 2 4344-4 ####[facility] LABCLIA [id number] [address] [address] [place] Oxyhemoglobin (BldV) [Mass fraction] 62 % Normal 60-85 [facility] Comment on above: Order Comment: Speci men Type: VENOUS BLOOD SPECIMENOrdering Facility: [facility] Address: [address] [place] [address] Performed By: #### 2 4344-4 ####[facility] LABIA [id number] [place] [address] [place] pH (BldV) 7.25 [pH] Low 7.32-7.42 [facility] Comment on above: Order Comment: Speci men Type: VENOUS BLOOD SPECIMENOrdering Facility: [facility] Address: [address] [place] [address] Performed By: #### 2 4344-4 ####[facility] LABIA [id number] [place] [address] [place] Potassium [Moles/Vol] 3.7 mmol/L Normal 3.5-5.0 [facility] Comment on above: Order Comment: Speci men Type: VENOUS BLOOD SPECIMENOrdering Facility: [facility] Address: [address] [place] [address] Performed By: #### 2 4344-4 ####[facility] [id number] [place] [address] [place] Sodium [Moles/Vol] 141 mmol/L Normal 136-144 [facility] Comment on above: Order Comment: Speci men Type: VENOUS BLOOD SPECIMENOrdering Facility: [facility] Address: [address] [place] [address] Performed By: #### 2 4344-4 ####[facility] [id number] [place] [address] [place] HIGH SENSITIVITY TROPONIN To n 06-19-2024 Troponin T.cardiac High sensitivity method [Mass/Vol] 3121 ng/L High <12 [facility] Comment on above: Order Comment: Speci men Type: BLOOD SPECIMENOrdering Facility: [facility] Address: [address] [place] [address] Performed By: #### 2 4323-8, HSTNT ####[facility] [id number] [place] [address] [place] XR CHEST 1V FRONTAL PORTon 0 06-19-2024 XR CHEST 1V FRONTAL PORT Normal [facility] ANES POSTPROC EVALon 024 ANES POSTPROC EVAL Normal [facility] ANES PRE-OPon 06-18-2024 ANES PRE-OP Normal [facility] ARTERIAL BLOOD GASESon 06-18 Base deficit (BldA) [Moles/Vol] -7 mmol/L Low -2-0 [facility] Comment on above: Order Comment: Speci men Type: ARTERIAL BLOOD SPECIMENOrdering Facility: [facility] Address: [address] [place] [address] Performed By: #### A LLBG ####[facility] LABCLIA [id number] [place] [address] [place] Body temperature 98.6 [degF] Normal [facility] Comment on above: Order Comment: Speci men Type: ARTERIAL BLOOD SPECIMENOrdering Facility: [facility] Address: [address] [place] [address] Performed By: #### A LLBG ####[facility] LABCLIA [id number] [place] [address] [place] Order Comment: Speci men Type: VENOUS BLOOD SPECIMENOrdering Facility: [facility] Address: [address] [place] [address] Performed By: #### 2 4344-4 ####[facility] LABCLIA [id number] [place] [address] [place] Calcium.ionized (Bld) [Mass/Vol] 1.14 mmol/L Normal 1.08-1.30 [facility] Comment on above: Order Comment: Speci men Type: ARTERIAL BLOOD SPECIMENOrdering Facility: [facility] [facility] Address: [address] [place], [place] [id number] Performed By: #### A LLBG ####[facility] LABCLIA [id number] [address] [id number] [address] [place] Calcium.ionized adjusted to pH 7.4 (BldA) [Moles/Vol] 1.09 mmol/L Normal 1.08-1.30 [facility] Comment on above: Order Comment: Speci men Type: ARTERIAL BLOOD SPECIMENOrdering Facility: [facility] Address: [address] [place] [address] Performed By: #### A LLBG ####[facility] LABCLIA [id number] [place] [address] [place] Carboxyhemoglobin (BldA) [Mass fraction] 1.7 % Normal 0.0-2.0 [facility] Comment on above: Order Comment: Speci men Type: ARTERIAL BLOOD SPECIMENOrdering Facility: [facility] Address: [address] [place] [address] Result Comment: Carb oxyhemoglobin Reference Range for Smokers: 2.0-8.0% Performed By: #### A LLBG ####[facility] LABCLIA [id number] [place] [address] [place] CO2 (Bld) [Partial pressure] 38 mm Hg Normal 36-46 [facility] Comment on above: Order Comment: Speci men Type: ARTERIAL BLOOD SPECIMENOrdering Facility: [facility] Address: [address] [place] [address] Performed By: #### A LLBG ####[facility] LABCLIA [id number] [place] [address] [place] Glucose [Mass/Vol] 200 mg/dL High 60-105 [facility] Comment on above: Order Comment: Speci men Type: ARTERIAL BLOOD SPECIMENOrdering Facility: [facility] Address: [address] [place] [address] Performed By: #### A LLBG ####[facility] LABCLIA [id number] [place] [address] [place] HCO3 (Bld) [Moles/Vol] 19 mmol/L Low 22-26 [facility] Comment on above: Order Comment: Speci men Type: ARTERIAL BLOOD SPECIMENOrdering Facility: [facility] Address: [address] [place] [address] Performed By: #### A LLBG ####[facility] LABCLIA [id number] [place] [address] [place] Hematocrit (Bld) [Volume fraction] 32.0 % Low 39.0-51.0 [facility] Comment on above: Order Comment: Speci men Type: ARTERIAL BLOOD SPECIMENOrdering Facility: [facility] Address: [address] [place] [address] Performed By: #### A LLBG ####[facility] LABCLIA [id number] [place] [address] [place] Hemoglobin (Bld) [Mass/Vol] 10.3 g/dL Low 13.0-17.0 [facility] Comment on above: Order Comment: Speci men Type: ARTERIAL BLOOD SPECIMENOrdering Facility: [facility] Address: [address] [place] [address] Performed By: #### A LLBG ####[facility] LABCLIA [id number] [place] [address] [place] Order Comment: Speci men Type: VENOUS BLOOD SPECIMENOrdering Facility: [facility] Address: [address] [place] [address] Performed By: #### 2 4344-4 ####[facility] LABCLIA [id number] [place] [address] [place] Order Comment: Speci men Type: BLOOD SPECIMENOrdering Facility: [facility] Address: [address] [place] [address] Performed By: #### 5 8410-2 ####[facility] LABCLIA [id number] [place] [address] [place] Lactate [Moles/Vol] 7.0 mmol/L High 0.5-2.2 [facility] Comment on above: Order Comment: Speci men Type: ARTERIAL BLOOD SPECIMENOrdering Facility: [facility] Address: [address] [place] [address] Performed By: #### A LLBG ####[facility] LABCLIA [id number] [address] [address] [place] Methemoglobin (Bld) [Mass fraction] 0.9 % Normal 0.0-1.5 [facility] Comment on above: Order Comment: Speci men Type: ARTERIAL BLOOD SPECIMENOrdering Facility: [facility] Address: [address] [place] [address] Performed By: #### A LLBG ####[facility] LABCLIA [id number] [place] [address] [place] O2 THERAPY VENT=Ventilator Normal [facility] Comment on above: Order Comment: Speci men Type: ARTERIAL BLOOD SPECIMENOrdering Facility: [facility] Address: [address] [place] [address] Performed By: #### A LLBG ####[facility] LABCLIA [id number] [place] [address] [place] Order Comment: Speci men Type: VENOUS BLOOD SPECIMENOrdering Facility: [facility] Address: [address] [place], [place] [address] Performed By: #### 2 4344-4 ####[facility] LABCLIA [id number] [place] [address] [place] Oxygen (Bld) [Partial pressure] 161 mm Hg High 85-95 [facility] Comment on above: Order Comment: Speci men Type: ARTERIAL BLOOD SPECIMENOrdering Facility: [facility] Address: [address] [place] [address] Performed By: #### A LLBG ####[facility] LABCLIA [id number] [place] [address] [place] Oxyhemoglobin (BldA) [Mass fraction] 97 % Normal 95-98 [facility] Comment on above: Order Comment: Speci men Type: ARTERIAL BLOOD SPECIMENOrdering Facility: [facility] Address: [address] [place] [address] Performed By: #### A LLBG ####[facility] LABCLIA [id number] [place] [address] [place] pH (Bld) 7.31 [pH] Low 7.35-7.45 [facility] Comment on above: Order Comment: Speci men Type: ARTERIAL BLOOD SPECIMENOrdering Facility: [facility] Address: [address] [place] [address] Performed By: #### A LLBG ####[facility] LABCLIA [id number] [place] [address] [place] Potassium [Moles/Vol] 4.3 mmol/L Normal 3.5-5.0 [facility] Comment on above: Order Comment: Speci men Type: ARTERIAL BLOOD SPECIMENOrdering Facility: [facility] Address: [address] [place] [address] Performed By: #### A LLBG ####[facility] LABCLIA [id number] [place] [address] [place] Order Comment: Speci men Type: VENOUS BLOOD SPECIMENOrdering Facility: [facility] Address: [address] [place] [address] Performed By: #### 2 4344-4 ####[facility] LABCLIA [id number] [place] [address] [place] Sodium [Moles/Vol] 138 mmol/L Normal 136-144 [facility] Comment on above: Order Comment: Speci men Type: ARTERIAL BLOOD SPECIMENOrdering Facility: [facility] Address: [address] [place] [address] Performed By: #### A LLBG ####[facility] LABCLIA [id number] [place] [address] [place] Base deficit (BldA) [Moles/Vol] -5 mmol/L Low -2-0 [facility] Comment on above: Order Comment: Speci men Type: ARTERIAL BLOOD SPECIMENOrdering Facility: [facility] Address: [address] [place] [address] Performed By: #### A LLBG ####[facility] LABCLIA [id number] [place] [address] [place] Body temperature 95 [degF] Normal [facility] Comment on above: Order Comment: Speci men Type: ARTERIAL BLOOD SPECIMENOrdering Facility: [facility] Address: [address] [place] [address] Performed By: #### A LLBG ####[facility] LABCLIA [id number] [address] [place] Order Comment: Speci men Type: VENOUS BLOOD SPECIMENOrdering Facility: [facility] Address: [address] [place] [address] Performed By: #### 2 4344-4 ####[facility] LABCLIA [id number] [place] [address] [place] Calcium.ionized (Bld) [Mass/Vol] 1.15 mmol/L Normal 1.08-1.30 [facility] Comment on above: Order Comment: Speci men Type: ARTERIAL BLOOD SPECIMENOrdering Facility: [facility] Address: [address] [place] [address] Performed By: #### A LLBG ####[facility] LABCLIA [id number] [place] [address] [place] Calcium.ionized adjusted to pH 7.4 (BldA) [Moles/Vol] 1.11 mmol/L Normal 1.08-1.30 [facility] Comment on above: Order Comment: Speci men Type: ARTERIAL BLOOD SPECIMENOrdering Facility: [facility] Address: [address] [place] [address] Performed By: #### A LLBG ####[facility] LABCLIA [id number] [place] [address] [place] Carboxyhemoglobin (BldA) [Mass fraction] 1.6 % Normal 0.0-2.0 [facility] Comment on above: Order Comment: Speci men Type: ARTERIAL BLOOD SPECIMENOrdering Facility: [facility] Address: [address] [place] [address] Result Comment: Carb oxyhemoglobin Reference Range for Smokers: 2.0-8.0% Performed By: #### A LLBG ####[facility] LABCLIA [id number] [place] [address] [place] CO2 (Bld) [Partial pressure] 41 mm Hg Normal 36-46 [facility] Comment on above: Order Comment: Speci men Type: ARTERIAL BLOOD SPECIMENOrdering Facility: [facility] Address: [address] [place] [address] Performed By: #### A LLBG ####[facility] LABCLIA [id number] [place] [address] [place] CO2 adjusted to patient's actual temperature (Bld) [Partial pressure] 37 mmHg Normal 36-46 [facility] Comment on above: Order Comment: Speci men Type: ARTERIAL BLOOD SPECIMENOrdering Facility: [facility] Address: [address] [place] [address] Performed By: #### A LLBG ####[facility] LABCLIA [id number] [place] [address] [place] Glucose [Mass/Vol] 189 mg/dL High 60-105 [facility] Comment on above: Order Comment: Speci men Type: ARTERIAL BLOOD SPECIMENOrdering Facility: [facility] Address: [address] [place] [address] Performed By: #### A LLBG ####[facility] LABCLIA [id number] [place] [address] [place] Order Comment: Speci men Type: VENOUS BLOOD SPECIMENOrdering Facility: [facility] Address: [address] [place] [address] Performed By: #### 2 4344-4 ####[facility] LABCLIA [id number] [place] [address] [place] HCO3 (Bld) [Moles/Vol] 21 mmol/L Low 22-26 [facility] Comment on above: Order Comment: Speci men Type: ARTERIAL BLOOD SPECIMENOrdering Facility: [facility] Address: [address] [place] [address] Performed By: #### A LLBG ####[facility] LABCLIA [id number] [place] [address] [place] Hematocrit (Bld) [Volume fraction] 34.9 % Low 39.0-51.0 [facility] Comment on above: Order Comment: Speci men Type: ARTERIAL BLOOD SPECIMENOrdering Facility: [facility] Address: [address] [place] [address] Performed By: #### A LLBG ####[facility] LABCLIA [id number] [place] [address] [place] Hemoglobin (Bld) [Mass/Vol] 11.3 g/dL Low 13.0-17.0 [facility] Comment on above: Order Comment: Speci men Type: ARTERIAL BLOOD SPECIMENOrdering Facility: [facility] Address: [address] [place] [address] Performed By: #### A LLBG ####[facility] LABCLIA [id number] [place] [address] [place] Lactate [Moles/Vol] 5.3 mmol/L High 0.5-2.2 [facility] Comment on above: Order Comment: Speci men Type: ARTERIAL BLOOD SPECIMENOrdering Facility: [facility] Address: [address], [place] [address] Performed By: #### A LLBG ####[facility] LABCLIA [id number] [address] [address] [place] Methemoglobin (Bld) [Mass fraction] 0.8 % Normal 0.0-1.5 [facility] Comment on above: Order Comment: Speci men Type: ARTERIAL BLOOD SPECIMENOrdering Facility: [facility] Address: [address] [place] [address] Performed By: #### A LLBG ####[facility] LABCLIA [id number] [address] [address] [place] O2 THERAPY VENT=Ventilator Normal [facility] Comment on above: Order Comment: Speci men Type: ARTERIAL BLOOD SPECIMENOrdering Facility: [facility] Address: [address] [place] [address] Performed By: #### A LLBG ####[facility] LABCLIA [id number] [place] [id number] [place] Order Comment: Speci men Type: VENOUS BLOOD SPECIMENOrdering Facility: [facility] Address: [address] [place] [address] Performed By: #### 2 4344-4 ####[facility] LABCLIA [id number] [address] [address] [place] Oxygen (Bld) [Partial pressure] 134 mm Hg High 85-95 [facility] Comment on above: Order Comment: Speci men Type: ARTERIAL BLOOD SPECIMENOrdering Facility: [facility] Address: [address] [place] [address] Performed By: #### A LLBG ####[facility] LABCLIA [id number] [address] [address] [place] Oxygen adjusted to patient's actual temperature (Bld) [Partial pressure] 123 mmHg High 85-95 [facility] Comment on above: Order Comment: Speci men Type: ARTERIAL BLOOD SPECIMENOrdering Facility: [facility] Address: [address] [place] [address] Performed By: #### A LLBG ####[facility] LABCLIA [id number] [place] [address] [place] Oxyhemoglobin (BldA) [Mass fraction] 97 % Normal 95-98 [facility] Comment on above: Order Comment: Speci men Type: ARTERIAL BLOOD SPECIMENOrdering Facility: [facility] Address: [address] [place] [address] Performed By: #### A LLBG ####[facility] LABIA [id number] [place] [address] [place] pH (Bld) 7.32 [pH] Low 7.35-7.45 [facility] Comment on above: Order Comment: Speci men Type: ARTERIAL BLOOD SPECIMENOrdering Facility: [facility] Address: [address] [place] [address] Performed By: #### A LLBG ####[facility] LABIA [id number] [place] [address] [place] pH adjusted to patient's actual temperature (Bld) 7.35 Normal 7.35-7.45 [facility] Comment on above: Order Comment: Speci men Type: ARTERIAL BLOOD SPECIMENOrdering Facility: [facility] Address: [address] [place] [address] Performed By: #### A LLBG ####[facility] LABIA [id number] [place] [address] [place] Potassium [Moles/Vol] 5.5 mmol/L High 3.5-5.0 [facility] Comment on above: Order Comment: Speci men Type: ARTERIAL BLOOD SPECIMENOrdering Facility: [facility] Address: [address] [place] [address] Performed By: #### A LLBG ####[facility] LABIA [id number] [place] [address] [place] Sodium [Moles/Vol] 136 mmol/L Normal 136-144 [facility] Comment on above: Order Comment: Speci men Type: ARTERIAL BLOOD SPECIMENOrdering Facility: [facility] Address: [address] [place] [address] Performed By: #### A LLBG ####[facility] LABCLIA [id number] [place] [address] [place] Order Comment: Speci men Type: VENOUS BLOOD SPECIMENOrdering Facility: [facility] Address: [address] [place] [address] Performed By: #### 2 4344-4 ####[facility] LABCLIA [id number] [place] [address] [place] Base deficit (BldA) [Moles/Vol] -2 mmol/L Normal -2-0 [facility] Comment on above: Order Comment: Speci men Type: ARTERIAL BLOOD SPECIMENOrdering Facility: [facility] Address: [address] [place] [address] Performed By: #### A LLBG ####[facility] LABCLIA [id number] [place] [address] [place] Calcium.ionized (Bld) [Mass/Vol] 1.17 mmol/L Normal 1.08-1.30 [facility] Comment on above: Order Comment: Speci men Type: ARTERIAL BLOOD SPECIMENOrdering Facility: [facility] Address: [address] [place] [address] Performed By: #### A LLBG ####[facility] LABCLIA [id number] [place] [address] [place] Calcium.ionized adjusted to pH 7.4 (BldA) [Moles/Vol] 1.15 mmol/L Normal 1.08-1.30 [facility] Comment on above: Order Comment: Speci men Type: ARTERIAL BLOOD SPECIMENOrdering Facility: [facility] Address: [address] [place] [address] Performed By: #### A LLBG ####[facility] LABCLIA [id number] [place] [address] [place] Carboxyhemoglobin (BldA) [Mass fraction] 1.6 % Normal 0.0-2.0 [facility] Comment on above: Order Comment: Speci men Type: ARTERIAL BLOOD SPECIMENOrdering Facility: [facility] Address: [address] [place] [address] Result Comment: Carb oxyhemoglobin Reference Range for Smokers: 2.0-8.0% Performed By: #### A LLBG ####[facility] LABCLIA [id number] [place] [address] [place] CO2 (Bld) [Partial pressure] 39 mm Hg Normal 36-46 [facility] Comment on above: Order Comment: Speci men Type: ARTERIAL BLOOD SPECIMENOrdering Facility: [facility] Address: [address] [place] [address] Performed By: #### A LLBG ####[facility] LABCLIA [id number] [place] [address] [place] CO2 adjusted to patient's actual temperature (Bld) [Partial pressure] 39 mmHg Normal 36-46 [facility] Comment on above: Order Comment: Speci men Type: ARTERIAL BLOOD SPECIMENOrdering Facility: [facility] Address: [address] [place] [address] Performed By: #### A LLBG ####[facility] LABCLIA [id number] [place] [address] [place] Glucose [Mass/Vol] 180 mg/dL High 60-105 [facility] Comment on above: Order Comment: Speci men Type: ARTERIAL BLOOD SPECIMENOrdering Facility: [facility] Address: [address] [place] [address] Performed By: #### A LLBG ####[facility] LABCLIA [id number] [place] [address] [place] HCO3 (Bld) [Moles/Vol] 22 mmol/L Normal 22-26 [facility] Comment on above: Order Comment: Speci men Type: ARTERIAL BLOOD SPECIMENOrdering Facility: [facility] Address: [address] [place] [address] Performed By: #### A LLBG ####[facility] LABCLIA [id number] [place] [address] [place] Hematocrit (Bld) [Volume fraction] 28.9 % Low 39.0-51.0 [facility] Comment on above: Order Comment: Speci men Type: ARTERIAL BLOOD SPECIMENOrdering Facility: [facility] Address: [address] [place] [address] Performed By: #### A LLBG ####[facility] LABCLIA [id number] [place] [address] [place] Hemoglobin (Bld) [Mass/Vol] 9.3 g/dL Low 13.0-17.0 [facility] Comment on above: Order Comment: Speci men Type: ARTERIAL BLOOD SPECIMENOrdering Facility: [facility] Address: [address] [place] [address] Performed By: #### A LLBG ####[facility] LABCLIA [id number] [place] [address] [place] Lactate [Moles/Vol] 4.7 mmol/L High 0.5-2.2 [facility] Comment on above: Order Comment: Speci men Type: ARTERIAL BLOOD SPECIMENOrdering Facility: [facility] Address: [address] [place] [address] Performed By: #### A LLBG ####[facility] LABCLIA [id number] [place] [address] [place] Methemoglobin (Bld) [Mass fraction] 0.8 % Normal 0.0-1.5 [facility] Comment on above: Order Comment: Speci men Type: ARTERIAL BLOOD SPECIMENOrdering Facility: [facility] Address: [address] [place] [place] [id number] Performed By: #### A LLBG ####[facility] LABCLIA [id number] [place] [address] [place] Oxygen (Bld) [Partial pressure] 213 mm Hg High 85-95 [facility] Comment on above: Order Comment: Speci men Type: ARTERIAL BLOOD SPECIMENOrdering Facility: [facility] Address: [address] [place] [address] Performed By: #### A LLBG ####[facility] LABCLIA [id number] [place] [address] [place] Oxygen adjusted to patient's actual temperature (Bld) [Partial pressure] 213 mmHg High 85-95 [facility] Comment on above: Order Comment: Speci men Type: ARTERIAL BLOOD SPECIMENOrdering Facility: [facility] Address: [address] [place] [address] Performed By: #### A LLBG ####[facility] LABCLIA [id number] [place] [address] [place] Oxyhemoglobin (BldA) [Mass fraction] 98 % Normal 95-98 [facility] Comment on above: Order Comment: Speci men Type: ARTERIAL BLOOD SPECIMENOrdering Facility: [facility] Address: [address] [place] [address] Performed By: #### A LLBG ####[facility] LABCLIA [id number] [place] [address] [place] pH (Bld) 7.38 [pH] Normal 7.35-7.45 [facility] Comment on above: Order Comment: Speci men Type: ARTERIAL BLOOD SPECIMENOrdering Facility: [facility] Address: [address] [place], [place] [address] Performed By: #### A LLBG ####[facility] LABCLIA [id number] [place] [address] [place] pH adjusted to patient's actual temperature (Bld) 7.38 Normal 7.35-7.45 [facility] Comment on above: Order Comment: Speci men Type: ARTERIAL BLOOD SPECIMENOrdering Facility: [facility] Address: [address] [place] [address] Performed By: #### A LLBG ####[facility] LABCLIA [id number] [place] [address] [place] Potassium [Moles/Vol] 5.3 mmol/L High 3.5-5.0 [facility] Comment on above: Order Comment: Speci men Type: ARTERIAL BLOOD SPECIMENOrdering Facility: [facility] Address: [address] [place] [address] Performed By: #### A LLBG ####[facility] LABCLIA [id number] [place] [address] [place] Sodium [Moles/Vol] 137 mmol/L Normal 136-144 [facility] Comment on above: Order Comment: Speci men Type: ARTERIAL BLOOD SPECIMENOrdering Facility: [facility] Address: [address] [place] [address] Performed By: #### A LLBG ####[facility] LABIA [id number] [place] [address] [place] Base deficit (BldA) [Moles/Vol] -5 mmol/L Low -2-0 [facility] Comment on above: Order Comment: Speci men Type: ARTERIAL BLOOD SPECIMENOrdering Facility: [facility] Address: [address] [place] [address] Performed By: #### A LLBG ####[facility] LABCLIA [id number] [place] [address] [place] Calcium.ionized (Bld) [Mass/Vol] 1.14 mmol/L Normal 1.08-1.30 [facility] Comment on above: Order Comment: Speci men Type: ARTERIAL BLOOD SPECIMENOrdering Facility: [facility] Address: [address] [place] [address] Performed By: #### A LLBG ####[facility] LABIA [id number] [place] [address] [place] Calcium.ionized adjusted to pH 7.4 (BldA) [Moles/Vol] 1.06 mmol/L Low 1.08-1.30 [facility] Comment on above: Order Comment: Speci men Type: ARTERIAL BLOOD SPECIMENOrdering Facility: [facility] Address: [address] [place] [address] Performed By: #### A LLBG ####[facility] LABIA [id number] [place] [address] [place] Carboxyhemoglobin (BldA) [Mass fraction] 1.7 % Normal 0.0-2.0 [facility] Comment on above: Order Comment: Speci men Type: ARTERIAL BLOOD SPECIMENOrdering Facility: [facility] Address: [address] [place] [address] Result Comment: Carb oxyhemoglobin Reference Range for Smokers: 2.0-8.0% Performed By: #### A LLBG ####[facility] LABCLIA [id number] [place] [address] [place] CO2 (Bld) [Partial pressure] 49 mm Hg High 36-46 [facility] Comment on above: Order Comment: Speci men Type: ARTERIAL BLOOD SPECIMENOrdering Facility: [facility] Address: [address] [place] [address] Performed By: #### A LLBG ####[facility] LABCLIA [id number] [place] [address] [place] CO2 adjusted to patient's actual temperature (Bld) [Partial pressure] 49 mmHg High 36-46 [facility] Comment on above: Order Comment: Speci men Type: ARTERIAL BLOOD SPECIMENOrdering Facility: [facility] Address: [address] [place] [address] Performed By: #### A LLBG ####[facility] LABCLIA [id number] [place] [address] [place] Glucose [Mass/Vol] 193 mg/dL High 60-105 [facility] Comment on above: Order Comment: Speci men Type: ARTERIAL BLOOD SPECIMENOrdering Facility: [facility] Address: [address] [place] [address] Performed By: #### A LLBG ####[facility] LABCLIA [id number] [place] [address] [place] HCO3 (Bld) [Moles/Vol] 22 mmol/L Normal 22-26 [facility] Comment on above: Order Comment: Speci men Type: ARTERIAL BLOOD SPECIMENOrdering Facility: [facility] Address: [address] [place] [address] Performed By: #### A LLBG ####[facility] LABCLIA [id number] [place] [address] [place] Hematocrit (Bld) [Volume fraction] 27.7 % Low 39.0-51.0 [facility] Comment on above: Order Comment: Speci men Type: ARTERIAL BLOOD SPECIMENOrdering Facility: [facility] Address: [address] [place] [address] Performed By: #### A LLBG ####[facility] LABCLIA [id number] [place] [address] [place] Hemoglobin (Bld) [Mass/Vol] 8.9 g/dL Low 13.0-17.0 [facility] Comment on above: Order Comment: Speci men Type: ARTERIAL BLOOD SPECIMENOrdering Facility: [facility] Address: [address] [place] [address] Performed By: #### A LLBG ####[facility] LABCLIA [id number] [id number] [place] [address] [place] Lactate [Moles/Vol] 5.1 mmol/L High 0.5-2.2 [facility] Comment on above: Order Comment: Speci men Type: ARTERIAL BLOOD SPECIMENOrdering Facility: [facility] Address: [address] [place] [address] Performed By: #### A LLBG ####[facility] LABCLIA [id number] [place] [address] [place] Methemoglobin (Bld) [Mass fraction] 1.0 % Normal 0.0-1.5 [facility] Comment on above: Order Comment: Speci men Type: ARTERIAL BLOOD SPECIMENOrdering Facility: [facility] Address: [address] [place] [address] Performed By: #### A LLBG ####[facility] LABCLIA [id number] [place] [address] [place] Oxygen (Bld) [Partial pressure] 223 mm Hg High 85-95 [facility] Comment on above: Order Comment: Speci men Type: ARTERIAL BLOOD SPECIMENOrdering Facility: [facility] Address: [address] [place] [address] Performed By: #### A LLBG ####[facility] LABCLIA [id number] [place] [address] [place] Oxygen adjusted to patient's actual temperature (Bld) [Partial pressure] 223 mmHg High 85-95 [facility] Comment on above: Order Comment: Speci men Type: ARTERIAL BLOOD SPECIMENOrdering Facility: [facility] Address: [address] [place] [id number] Performed By: #### A LLBG ####[facility] LABCLIA [id number] [place] [id number] [place] Oxyhemoglobin (BldA) [Mass fraction] 97 % Normal 95-98 [facility] Comment on above: Order Comment: Speci men Type: ARTERIAL BLOOD SPECIMENOrdering Facility: [facility] Address: [address] [place] [address] Performed By: #### A LLBG ####[facility] LABCLIA [id number] [place] [address] [place] pH (Bld) 7.27 [pH] Low 7.35-7.45 [facility] Comment on above: Order Comment: Speci men Type: ARTERIAL BLOOD SPECIMENOrdering Facility: [facility] Address: [address] [place] [address] Performed By: #### A LLBG ####[facility] LABCLIA [id number] [place] [address] [place] pH adjusted to patient's actual temperature (Bld) 7.27 Low 7.35-7.45 [facility] Comment on above: Order Comment: Speci men Type: ARTERIAL BLOOD SPECIMENOrdering Facility: [facility] Address: [address] [place] [address] Performed By: #### A LLBG ####[facility] LABCLIA [id number] [place] [address] [place] Potassium [Moles/Vol] 4.9 mmol/L Normal 3.5-5.0 [facility] Comment on above: Order Comment: Speci men Type: ARTERIAL BLOOD SPECIMENOrdering Facility: [facility] Address: [address] [place] [address] Performed By: #### A LLBG ####[facility] LABCLIA [id number] [place] [address] [place] Sodium [Moles/Vol] 136 mmol/L Normal 136-144 [facility] Comment on above: Order Comment: Speci men Type: ARTERIAL BLOOD SPECIMENOrdering Facility: [facility] Address: [address] [place] [address] Performed By: #### A LLBG ####[facility] LABCLIA [id number] [place] [address] [place] Base deficit (BldA) [Moles/Vol] -10 mmol/L Low -2-0 [facility] Comment on above: Order Comment: Speci men Type: ARTERIAL BLOOD SPECIMENOrdering Facility: [facility] Address: [address] [place] [address] Performed By: #### A LLBG ####[facility] LABCLIA [id number] [place] [address] [place] Calcium.ionized (Bld) [Mass/Vol] 1.17 mmol/L Normal 1.08-1.30 [facility] Comment on above: Order Comment: Speci men Type: ARTERIAL BLOOD SPECIMENOrdering Facility: [facility] Address: [address] [place] [address] Performed By: #### A LLBG ####[facility] LABCLIA [id number] [place] [address] [place] Carboxyhemoglobin (BldA) [Mass fraction] 1.4 % Normal 0.0-2.0 [facility] Comment on above: Order Comment: Speci men Type: ARTERIAL BLOOD SPECIMENOrdering Facility: [facility] Address: [address] [place] [address] Result Comment: Carb oxyhemoglobin Reference Range for Smokers: 2.0-8.0% Performed By: #### A LLBG ####[facility] LABCLIA [id number] [place] [address] [place] CO2 (Bld) [Partial pressure] 47 mm Hg High 36-46 [facility] Comment on above: Order Comment: Speci men Type: ARTERIAL BLOOD SPECIMENOrdering Facility: [facility] Address: [address] [place] [address] Performed By: #### A LLBG ####[facility] LABCLIA [id number] [place] [address] [place] CO2 adjusted to patient's actual temperature (Bld) [Partial pressure] 47 mmHg High 36-46 [facility] Comment on above: Order Comment: Speci men Type: ARTERIAL BLOOD SPECIMENOrdering Facility: [facility] Address: [address] [place] [id number] Performed By: #### A LLBG ####[facility] LABCLIA [id number] [place] [id number] [place] COMMENTS Critical Value: pH, pH(t) Normal [facility] Comment on above: Order Comment: Speci men Type: ARTERIAL BLOOD SPECIMENOrdering Facility: [facility] Address: [address] [place] [address] Performed By: #### A LLBG ####[facility] LABCLIA [id number] [place] [address] [place] DATE/TIME NOTIFIED [id number] PM Normal [facility] Comment on above: Order Comment: Speci men Type: ARTERIAL BLOOD SPECIMENOrdering Facility: [facility] Address: [address] [place] [address] Performed By: #### A LLBG ####[facility] LABCLIA [id number] [place] [address] [place] Glucose [Mass/Vol] 225 mg/dL High 60-105 [facility] Comment on above: Order Comment: Speci men Type: ARTERIAL BLOOD SPECIMENOrdering Facility: [facility] Address: [address] [place], [place] [address] Performed By: #### A LLBG ####[facility] LABCLIA [id number] [place] [id number] [place] HCO3 (Bld) [Moles/Vol] 17 mmol/L Low 22-26 [facility] Comment on above: Order Comment: Speci men Type: ARTERIAL BLOOD SPECIMENOrdering Facility: [facility] Address: [address] [place], [place] [address] Performed By: #### A LLBG ####[facility] LABCLIA [id number] [place] [address] [place] Hematocrit (Bld) [Volume fraction] 30.5 % Low 39.0-51.0 [facility] Comment on above: Order Comment: Speci men Type: ARTERIAL BLOOD SPECIMENOrdering Facility: [facility] Address: [address] [place] [address] Performed By: #### A LLBG ####[facility] LABCLIA [id number] [place] [address] [place] Hemoglobin (Bld) [Mass/Vol] 9.9 g/dL Low 13.0-17.0 [facility] Comment on above: Order Comment: Speci men Type: ARTERIAL BLOOD SPECIMENOrdering Facility: [facility] Address: [address] [place] [address] Performed By: #### A LLBG ####[facility] LABCLIA [id number] [place] [address] [place] Lactate [Moles/Vol] 5.4 mmol/L High 0.5-2.2 [facility] Comment on above: Order Comment: Speci men Type: ARTERIAL BLOOD SPECIMENOrdering Facility: [facility] Address: [address] [place] [address] Performed By: #### A LLBG ####[facility] LABCLIA [id number] [place] [address] [place] Methemoglobin (Bld) [Mass fraction] 1.0 % Normal 0.0-1.5 [facility] Comment on above: Order Comment: Speci men Type: ARTERIAL BLOOD SPECIMENOrdering Facility: [facility] Address: [address] [place] [address] Performed By: #### A LLBG ####[facility] LABCLIA [id number] [place] [address] [place] NOTIFIED WHOM Jake fung RN, ORCarolina Bunn Normal [facility] Comment on above: Order Comment: Speci men Type: ARTERIAL BLOOD SPECIMENOrdering Facility: [facility] Address: [address] [place] [address] Performed By: #### A LLBG ####[facility] LABCLIA [id number] [place] [address] [place] Oxygen (Bld) [Partial pressure] 278 mm Hg High 85-95 [facility] Comment on above: Order Comment: Speci men Type: ARTERIAL BLOOD SPECIMENOrdering Facility: [facility] Address: [address] [place] [address] Performed By: #### A LLBG ####[facility] LABCLIA [id number] [place] [address] [place] Oxygen adjusted to patient's actual temperature (Bld) [Partial pressure] 278 mmHg High 85-95 [facility] Comment on above: Order Comment: Speci men Type: ARTERIAL BLOOD SPECIMENOrdering Facility: [facility] Address: [address] [place] [address] Performed By: #### A LLBG ####[facility] LABIA [id number] [place] [address] [place] Oxyhemoglobin (BldA) [Mass fraction] 97 % Normal 95-98 [facility] Comment on above: Order Comment: Speci men Type: ARTERIAL BLOOD SPECIMENOrdering Facility: [facility] Address: [address] [place] [address] Performed By: #### A LLBG ####[facility] LABCLIA [id number] [place] [id number] [place] pH (Bld) 7.20 [pH] Low 7.35-7.45 [facility] Comment on above: Order Comment: Speci men Type: ARTERIAL BLOOD SPECIMENOrdering Facility: [facility] Address: [address] [place] [address] Performed By: #### A LLBG ####[facility] LABCLIA [id number] [place] [address] [place] pH adjusted to patient's actual temperature (Bld) 7.20 Low 7.35-7.45 [facility] Comment on above: Order Comment: Speci men Type: ARTERIAL BLOOD SPECIMENOrdering Facility: [facility] Address: [address] [place] [address] Performed By: #### A LLBG ####[facility] LABCLIA [id number] [place] [address] [place] Potassium [Moles/Vol] 4.7 mmol/L Normal 3.5-5.0 [facility] Comment on above: Order Comment: Speci men Type: ARTERIAL BLOOD SPECIMENOrdering Facility: [facility] Address: [address] [place] [address] Performed By: #### A LLBG ####[facility] LABIA [id number] [place] [address] [place] Sodium [Moles/Vol] 135 mmol/L Low 136-144 [facility] Comment on above: Order Comment: Speci men Type: ARTERIAL BLOOD SPECIMENOrdering Facility: [facility] Address: [address] [place] [address] Performed By: #### A LLBG ####[facility] LABCLIA [id number] [place] [address] [place] Base deficit (BldA) [Moles/Vol] -9 mmol/L Low -2-0 [facility] Comment on above: Order Comment: Speci men Type: ARTERIAL BLOOD SPECIMENOrdering Facility: [facility] Address: [address] [place] [address] Performed By: #### A LLBG ####[facility] LABCLIA [id number] [place] [address] [place] Calcium.ionized (Bld) [Mass/Vol] 1.13 mmol/L Normal 1.08-1.30 [facility] Comment on above: Order Comment: Speci men Type: ARTERIAL BLOOD SPECIMENOrdering Facility: [facility] Address: [address] [place] [address] Performed By: #### A LLBG ####[facility] LABIA [id number] [place] [address] [place] Calcium.ionized adjusted to pH 7.4 (BldA) [Moles/Vol] 1.04 mmol/L Low 1.08-1.30 [facility] Comment on above: Order Comment: Speci men Type: ARTERIAL BLOOD SPECIMENOrdering Facility: [facility] Address: [address] [place] [address] Performed By: #### A LLBG ####[facility] LABIA [id number] [place] [address] [place] Carboxyhemoglobin (BldA) [Mass fraction] 1.2 % Normal 0.0-2.0 [facility] Comment on above: Order Comment: Speci men Type: ARTERIAL BLOOD SPECIMENOrdering Facility: [facility] Address: [address] [place] [address] Result Comment: Carb oxyhemoglobin Reference Range for Smokers: 2.0-8.0% Performed By: #### A LLBG ####[facility] LABIA [id number] [place] [address] [place] CO2 (Bld) [Partial pressure] 41 mm Hg Normal 36-46 [facility] Comment on above: Order Comment: Speci men Type: ARTERIAL BLOOD SPECIMENOrdering Facility: [facility] Address: [address] [place] [address] Performed By: #### A LLBG ####[facility] LABIA [id number] [place] [address] [place] CO2 adjusted to patient's actual temperature (Bld) [Partial pressure] 41 mmHg Normal 36-46 [facility] Comment on above: Order Comment: Speci men Type: ARTERIAL BLOOD SPECIMENOrdering Facility: [facility] Address: [address] [place] [address] Performed By: #### A LLBG ####[facility] LABCLIA [id number] [place] [address] [place] Glucose [Mass/Vol] 222 mg/dL High 60-105 [facility] Comment on above: Order Comment: Speci men Type: ARTERIAL BLOOD SPECIMENOrdering Facility: [facility] Address: [address] [place] [address] Performed By: #### A LLBG ####[facility] LABCLIA [id number] [place] [address] [place] HCO3 (Bld) [Moles/Vol] 17 mmol/L Low 22-26 [facility] Comment on above: Order Comment: Speci men Type: ARTERIAL BLOOD SPECIMENOrdering Facility: [facility] Address: [address] [place] [address] Performed By: #### A LLBG ####[facility] LABCLIA [id number] [place] [address] [place] Hematocrit (Bld) [Volume fraction] 28.9 % Low 39.0-51.0 [facility] Comment on above: Order Comment: Speci men Type: ARTERIAL BLOOD SPECIMENOrdering Facility: [facility] Address: [address] [place] [address] Performed By: #### A LLBG ####[facility] LABIA [id number] [place] [address] [place] Hemoglobin (Bld) [Mass/Vol] 9.3 g/dL Low 13.0-17.0 [facility] Comment on above: Order Comment: Speci men Type: ARTERIAL BLOOD SPECIMENOrdering Facility: [facility] Address: [address] [place] [address] Performed By: #### A LLBG ####[facility] LABCLIA [id number] [place] [address] [place] Lactate [Moles/Vol] 5.2 mmol/L High 0.5-2.2 [facility] Comment on above: Order Comment: Speci men Type: ARTERIAL BLOOD SPECIMENOrdering Facility: [facility] Address: [address] [place] [address] Performed By: #### A LLBG ####[facility] LABCLIA [id number] [address] [address] [place] Methemoglobin (Bld) [Mass fraction] 1.7 % High 0.0-1.5 [facility] Comment on above: Order Comment: Speci men Type: ARTERIAL BLOOD SPECIMENOrdering Facility: [facility] Address: [address] [place] [id number] Performed By: #### A LLBG ####[facility] LABCLIA [id number] [place] [id number] [place] Oxygen (Bld) [Partial pressure] 316 mm Hg High 85-95 [facility] Comment on above: Order Comment: Speci men Type: ARTERIAL BLOOD SPECIMENOrdering Facility: [facility] Address: [address] [place] [id number] Performed By: #### A LLBG ####[facility] LABCLIA [id number] [place] [id number] [place] Oxygen adjusted to patient's actual temperature (Bld) [Partial pressure] 316 mmHg High 85-95 [facility] Comment on above: Order Comment: Speci men Type: ARTERIAL BLOOD SPECIMENOrdering Facility: [facility] Address: [address] [place] [address] Performed By: #### A LLBG ####[facility] LABCLIA [id number] [place] [id number] [place] Oxyhemoglobin (BldA) [Mass fraction] 97 % Normal 95-98 [facility] Comment on above: Order Comment: Speci men Type: ARTERIAL BLOOD SPECIMENOrdering Facility: [facility] Address: [address] [place] [address] Performed By: #### A LLBG ####[facility] LABCLIA [id number] [place] [address] [place] pH (Bld) 7.24 [pH] Low 7.35-7.45 [facility] Comment on above: Order Comment: Speci men Type: ARTERIAL BLOOD SPECIMENOrdering Facility: [facility] Address: [address] [place] [address] Performed By: #### A LLBG ####[facility] LABIA [id number] [place] [address] [place] pH adjusted to patient's actual temperature (Bld) 7.24 Low 7.35-7.45 [facility] Comment on above: Order Comment: Speci men Type: ARTERIAL BLOOD SPECIMENOrdering Facility: [facility] Address: [address] [place] [address] Performed By: #### A LLBG ####[facility] LABIA [id number] [place] [address] [place] Potassium [Moles/Vol] 4.8 mmol/L Normal 3.5-5.0 [facility] Comment on above: Order Comment: Speci men Type: ARTERIAL BLOOD SPECIMENOrdering Facility: [facility] Address: [address] [place] [address] Performed By: #### A LLBG ####[facility] LABIA [id number] [place] [address] [place] Sodium [Moles/Vol] 134 mmol/L Low 136-144 [facility] Comment on above: Order Comment: Speci men Type: ARTERIAL BLOOD SPECIMENOrdering Facility: [facility] Address: [address] [place] [address] Performed By: #### A LLBG ####[facility] LABIA [id number] [place] [address] [place] Base deficit (BldA) [Moles/Vol] -1 mmol/L Normal -2-0 [facility] Comment on above: Order Comment: Speci men Type: ARTERIAL BLOOD SPECIMENOrdering Facility: [facility] Address: [address] [place] [address] Performed By: #### A LLBG ####[facility] LABCLIA [id number] [place] [address] [place] Calcium.ionized (Bld) [Mass/Vol] 0.89 mmol/L Low 1.08-1.30 [facility] Comment on above: Order Comment: Speci men Type: ARTERIAL BLOOD SPECIMENOrdering Facility: [facility] Address: [address] [place] [address] Performed By: #### A LLBG ####[facility] LABCLIA [id number] [place] [address] [place] Calcium.ionized adjusted to pH 7.4 (BldA) [Moles/Vol] 0.88 mmol/L Low 1.08-1.30 [facility] Comment on above: Order Comment: Speci men Type: ARTERIAL BLOOD SPECIMENOrdering Facility: [facility] Address: [address] [place] [address] Performed By: #### A LLBG ####[facility] LABIA [id number] [place] [address] [place] Carboxyhemoglobin (BldA) [Mass fraction] 1.4 % Normal 0.0-2.0 [facility] Comment on above: Order Comment: Speci men Type: ARTERIAL BLOOD SPECIMENOrdering Facility: [facility] Address: [address] [place] [address] Result Comment: Carb oxyhemoglobin Reference Range for Smokers: 2.0-8.0% Performed By: #### A LLBG ####[facility] LABCLIA [id number] [place] [address] [place] CO2 (Bld) [Partial pressure] 42 mm Hg Normal 36-46 [facility] Comment on above: Order Comment: Speci men Type: ARTERIAL BLOOD SPECIMENOrdering Facility: [facility] Address: [address] [place] [address] Performed By: #### A LLBG ####[facility] LABCLIA [id number] [place] [address] [place] CO2 adjusted to patient's actual temperature (Bld) [Partial pressure] 42 mmHg Normal 36-46 [facility] Comment on above: Order Comment: Speci men Type: ARTERIAL BLOOD SPECIMENOrdering Facility: [facility] Address: [address] [place] [address] Performed By: #### A LLBG ####[facility] LABCLIA [id number] [place] [address] [place] COMMENTS Urgent Value: Ca, Ca(7.4) Normal [facility] Comment on above: Order Comment: Speci men Type: ARTERIAL BLOOD SPECIMENOrdering Facility: [facility] Address: [address] [place] [address] Performed By: #### A LLBG ####[facility] LABCLIA [id number] [place] [address] [place] DATE/TIME NOTIFIED [id number] 72632 PM Normal [facility] Comment on above: Order Comment: Speci men Type: ARTERIAL BLOOD SPECIMENOrdering Facility: [facility] Address: [address] [place] [address] Performed By: #### A LLBG ####[facility] LABCLIA [id number] [place] [address] [place] Glucose [Mass/Vol] 122 mg/dL High 60-105 [facility] Comment on above: Order Comment: Speci men Type: ARTERIAL BLOOD SPECIMENOrdering Facility: [facility] Address: [address] [place] [address] Performed By: #### A LLBG ####[facility] LABCLIA [id number] [address] [id number] [address] [place] HCO3 (Bld) [Moles/Vol] 24 mmol/L Normal 22-26 [facility] Comment on above: Order Comment: Speci men Type: ARTERIAL BLOOD SPECIMENOrdering Facility: [facility] Address: [address] [place] [address] Performed By: #### A LLBG ####[facility] LABCLIA [id number] [place] [address] [place] Hematocrit (Bld) [Volume fraction] 29.2 % Low 39.0-51.0 [facility] Comment on above: Order Comment: Speci men Type: ARTERIAL BLOOD SPECIMENOrdering Facility: [facility] Address: [address] [place] [address] Performed By: #### A LLBG ####[facility] LABCLIA [id number] [place] [address] [place] Hemoglobin (Bld) [Mass/Vol] 9.4 g/dL Low 13.0-17.0 [facility] Comment on above: Order Comment: Speci men Type: ARTERIAL BLOOD SPECIMENOrdering Facility: [facility] Address: [address] [place] [address] Performed By: #### A LLBG ####[facility] LABCLIA [id number] [place] [address] [place] Lactate [Moles/Vol] 0.9 mmol/L Normal 0.5-2.2 [facility] Comment on above: Order Comment: Speci men Type: ARTERIAL BLOOD SPECIMENOrdering Facility: [facility] Address: [address] [place] [address] Performed By: #### A LLBG ####[facility] LABCLIA [id number] [place] [address] [place] Methemoglobin (Bld) [Mass fraction] 0.9 % Normal 0.0-1.5 [facility] Comment on above: Order Comment: Speci men Type: ARTERIAL BLOOD SPECIMENOrdering Facility: [facility] Address: [address] [place] [id number] Performed By: #### A LLBG ####[facility] LABCLIA [id number] [place] [id number] [place] NOTIFIED WHOM [facility] SnehaChecoQuincy Normal [facility] Comment on above: Order Comment: Speci men Type: ARTERIAL BLOOD SPECIMENOrdering Facility: [facility] Address: [address] [place] [id number] Performed By: #### A LLBG ####[facility] LABCLIA [id number] [place] [id number] [place] Oxygen (Bld) [Partial pressure] 261 mm Hg High 85-95 [facility] Comment on above: Order Comment: Speci men Type: ARTERIAL BLOOD SPECIMENOrdering Facility: [facility] Address: [address] [place] [place] [id number] Performed By: #### A LLBG ####[facility] LABCLIA [id number] [place] [id number] [place] Oxygen adjusted to patient's actual temperature (Bld) [Partial pressure] 261 mmHg High 85-95 [facility] Comment on above: Order Comment: Speci men Type: ARTERIAL BLOOD SPECIMENOrdering Facility: [facility] Address: [address] [place] [id number] Performed By: #### A LLBG ####[facility] LABCLIA [id number] [address] [address] [place] Oxyhemoglobin (BldA) [Mass fraction] 98 % Normal 95-98 [facility] Comment on above: Order Comment: Speci men Type: ARTERIAL BLOOD SPECIMENOrdering Facility: [facility] Address: [address] [place] [place] [id number] Performed By: #### A LLBG ####[facility] LABCLIA [id number] [place] [id number] [place] pH (Bld) 7.38 [pH] Normal 7.35-7.45 [facility] Comment on above: Order Comment: Speci men Type: ARTERIAL BLOOD SPECIMENOrdering Facility: [facility] Address: [address] [place] [address] Performed By: #### A LLBG ####[facility] LABCLIA [id number] [place] [address] [place] pH adjusted to patient's actual temperature (Bld) 7.38 Normal 7.35-7.45 [facility] Comment on above: Order Comment: Speci men Type: ARTERIAL BLOOD SPECIMENOrdering Facility: [facility] Address: [address] [place] [address] Performed By: #### A LLBG ####[facility] LABCLIA [id number] [place] [address] [place] Potassium [Moles/Vol] 5.8 mmol/L High 3.5-5.0 [facility] Comment on above: Order Comment: Speci men Type: ARTERIAL BLOOD SPECIMENOrdering Facility: [facility] Address: [address] [place] [address] Performed By: #### A LLBG ####[facility] LABCLIA [id number] [place] [address] [place] Sodium [Moles/Vol] 136 mmol/L Normal 136-144 [facility] Comment on above: Order Comment: Speci men Type: ARTERIAL BLOOD SPECIMENOrdering Facility: [facility] Address: [address] [place] [address] Performed By: #### A LLBG ####[facility] LABCLIA [id number] [place] [address] [place] Base deficit (BldA) [Moles/Vol] -1 mmol/L Normal -2-0 [facility] Comment on above: Order Comment: Speci men Type: ARTERIAL BLOOD SPECIMENOrdering Facility: [facility] Address: [address] [place] [address] Performed By: #### A LLBG ####[facility] LABIA [id number] [place] [address] [place] Calcium.ionized (Bld) [Mass/Vol] 0.94 mmol/L Low 1.08-1.30 [facility] Comment on above: Order Comment: Speci men Type: ARTERIAL BLOOD SPECIMENOrdering Facility: [facility] Address: [address] [place] [address] Performed By: #### A LLBG ####[facility] [id number] [place] [address] [place] Calcium.ionized adjusted to pH 7.4 (BldA) [Moles/Vol] 0.93 mmol/L Low 1.08-1.30 [facility] Comment on above: Order Comment: Speci men Type: ARTERIAL BLOOD SPECIMENOrdering Facility: [facility] Address: [address] [place] [address] Performed By: #### A LLBG ####[facility] [id number] [place] [address] [place] Carboxyhemoglobin (BldA) [Mass fraction] 1.8 % Normal 0.0-2.0 [facility] Comment on above: Order Comment: Speci men Type: ARTERIAL BLOOD SPECIMENOrdering Facility: [facility] Address: [address] [place] [address] Result Comment: Carb oxyhemoglobin Reference Range for Smokers: 2.0-8.0% Performed By: #### A LLBG ####[facility] [id number] [place] [address] [place] CO2 (Bld) [Partial pressure] 42 mm Hg Normal 36-46 [facility] Comment on above: Order Comment: Speci men Type: ARTERIAL BLOOD SPECIMENOrdering Facility: [facility] Address: [address] [place] [address] Performed By: #### A LLBG ####[facility] LABCLIA [id number] [place] [address] [place] CO2 adjusted to patient's actual temperature (Bld) [Partial pressure] 42 mmHg Normal 36-46 [facility] Comment on above: Order Comment: Speci men Type: ARTERIAL BLOOD SPECIMENOrdering Facility: [facility] Address: [address] [place] [address] Performed By: #### A LLBG ####[facility] LABCLIA [id number] [place] [address] [place] Glucose [Mass/Vol] 107 mg/dL High 60-105 [facility] Comment on above: Order Comment: Speci men Type: ARTERIAL BLOOD SPECIMENOrdering Facility: [facility] Address: [address] [place] [address] Performed By: #### A LLBG ####[facility] LABCLIA [id number] [place] [address] [place] HCO3 (Bld) [Moles/Vol] 24 mmol/L Normal 22-26 [facility] Comment on above: Order Comment: Speci men Type: ARTERIAL BLOOD SPECIMENOrdering Facility: [facility] Address: [address] [place] [address] Performed By: #### A LLBG ####[facility] LABCLIA [id number] [place] [address] [place] Hematocrit (Bld) [Volume fraction] 29.7 % Low 39.0-51.0 [facility] Comment on above: Order Comment: Speci men Type: ARTERIAL BLOOD SPECIMENOrdering Facility: [facility] Address: [address] [place] [address] Performed By: #### A LLBG ####[facility] LABCLIA [id number] [place] [address] [place] Hemoglobin (Bld) [Mass/Vol] 9.6 g/dL Low 13.0-17.0 [facility] Comment on above: Order Comment: Speci men Type: ARTERIAL BLOOD SPECIMENOrdering Facility: [facility] Address: [address] [place] [address] Performed By: #### A LLBG ####[facility] LABCLIA [id number] [address] [address] [place] Lactate [Moles/Vol] 0.9 mmol/L Normal 0.5-2.2 [facility] Comment on above: Order Comment: Speci men Type: ARTERIAL BLOOD SPECIMENOrdering Facility: [facility] Address: [address] [place] [address] Performed By: #### A LLBG ####[facility] LABIA [id number] [place] [address] [place] Methemoglobin (Bld) [Mass fraction] 0.5 % Normal 0.0-1.5 [facility] Comment on above: Order Comment: Speci men Type: ARTERIAL BLOOD SPECIMENOrdering Facility: [facility] Address: [address] [place] [address] Performed By: #### A LLBG ####[facility] LABCLIA [id number] [place] [address] [place] Oxygen (Bld) [Partial pressure] 327 mm Hg High 85-95 [facility] Comment on above: Order Comment: Speci men Type: ARTERIAL BLOOD SPECIMENOrdering Facility: [facility] Address: [address] [id number] Performed By: #### A LLBG ####[facility] LABCLIA [id number] [place] [address] [place] Oxygen adjusted to patient's actual temperature (Bld) [Partial pressure] 327 mmHg High 85-95 [facility] Comment on above: Order Comment: Speci men Type: ARTERIAL BLOOD SPECIMENOrdering Facility: [facility] Address: [address] [place] [address] Performed By: #### A LLBG ####[facility] LABCLIA [id number] [place] [address] [place] Oxyhemoglobin (BldA) [Mass fraction] 98 % Normal 95-98 [facility] Comment on above: Order Comment: Speci men Type: ARTERIAL BLOOD SPECIMENOrdering Facility: [facility] Address: [address] [place] [address] Performed By: #### A LLBG ####[facility] LABCLIA [id number] [place] [address] [place] pH (Bld) 7.37 [pH] Normal 7.35-7.45 [facility] Comment on above: Order Comment: Speci men Type: ARTERIAL BLOOD SPECIMENOrdering Facility: [facility] Address: [address] [place] [address] Performed By: #### A LLBG ####[facility] LABIA [id number] [place] [address] [place] pH adjusted to patient's actual temperature (Bld) 7.37 Normal 7.35-7.45 [facility] Comment on above: Order Comment: Speci men Type: ARTERIAL BLOOD SPECIMENOrdering Facility: [facility] Address: [address] [place] [address] Performed By: #### A LLBG ####[facility] LABIA [id number] [place] [address] [place] Potassium [Moles/Vol] 5.9 mmol/L High 3.5-5.0 [facility] Comment on above: Order Comment: Speci men Type: ARTERIAL BLOOD SPECIMENOrdering Facility: [facility] Address: [address] [place] [address] Performed By: #### A LLBG ####[facility] LABIA [id number] [place] [address] [place] Sodium [Moles/Vol] 134 mmol/L Low 136-144 [facility] Comment on above: Order Comment: Speci men Type: ARTERIAL BLOOD SPECIMENOrdering Facility: [facility] Address: [address] [place] [address] Performed By: #### A LLBG ####[facility] LABIA [id number] [place] [address] [place] Base deficit (BldA) [Moles/Vol] -2 mmol/L Normal -2-0 [facility] Comment on above: Order Comment: Speci men Type: ARTERIAL BLOOD SPECIMENOrdering Facility: [facility] Address: [address] [place] [address] Performed By: #### A LLBG ####[facility] LABIA [id number] [place] [address] [place] Calcium.ionized (Bld) [Mass/Vol] 1.08 mmol/L Normal 1.08-1.30 [facility] Comment on above: Order Comment: Speci men Type: ARTERIAL BLOOD SPECIMENOrdering Facility: [facility] Address: [address] [place] [address] Performed By: #### A LLBG ####[facility] [id number] [place] [address] [place] Calcium.ionized adjusted to pH 7.4 (BldA) [Moles/Vol] 1.06 mmol/L Low 1.08-1.30 [facility] Comment on above: Order Comment: Speci men Type: ARTERIAL BLOOD SPECIMENOrdering Facility: [facility] Address: [address] [place] [address] Performed By: #### A LLBG ####[facility] LABIA [id number] [place] [address] [place] Carboxyhemoglobin (BldA) [Mass fraction] 1.6 % Normal 0.0-2.0 [facility] Comment on above: Order Comment: Speci men Type: ARTERIAL BLOOD SPECIMENOrdering Facility: [facility] Address: [address] [place] [address] Result Comment: Carb oxyhemoglobin Reference Range for Smokers: 2.0-8.0% Performed By: #### A LLBG ####[facility] LABCLIA [id number] [address] OF [facility] CO2 (Bld) [Partial pressure] 43 mm Hg Normal 36-46 [facility] Comment on above: Order Comment: Speci men Type: ARTERIAL BLOOD SPECIMENOrdering Facility: [facility] Address: [address] [place] [address] Performed By: #### A LLBG ####[facility] LABCLIA [id number] [address] CO2 adjusted to patient's actual temperature (Bld) [Partial pressure] 43 mmHg Normal 36-46 [facility] Comment on above: Order Comment: Speci men Type: ARTERIAL BLOOD SPECIMENOrdering Facility: [facility] Address: [address] [place] [address] Performed By: #### A LLBG ####[facility] LABCLIA [id number] [address] [place] COM[place] Critical Value: K Normal [facility] Comment on above: Order Comment: Speci men Type: ARTERIAL BLOOD SPECIMENOrdering Facility: [facility] Address: [address] [place] [address] Performed By: #### A LLBG ####[facility] LABCLIA [id number] [address] [place] DATE/TIME NOTIFIED [id number] PM Normal C [facility] Comment on above: Order Comment: Speci men Type: ARTERIAL BLOOD SPECIMENOrdering Facility: [facility] Address: [address] [place] [address] Performed By: #### A LLBG ####[facility] LABCLIA [id number] [address] [id number] [address] [place] Glucose [Mass/Vol] 124 mg/dL High 60-105 [facility] Comment on above: Order Comment: Speci men Type: ARTERIAL BLOOD SPECIMENOrdering Facility: [facility] Address: [address] [place] [address] Performed By: #### A LLBG ####[facility] LABCLIA [id number] [place] [address] [place] HCO3 (Bld) [Moles/Vol] 23 mmol/L Normal 22-26 [facility] Comment on above: Order Comment: Speci men Type: ARTERIAL BLOOD SPECIMENOrdering Facility: [facility] Address: [address] [place] [address] Performed By: #### A LLBG ####[facility] LABCLIA [id number] [place] [address] [place] Hematocrit (Bld) [Volume fraction] 31.4 % Low 39.0-51.0 [facility] Comment on above: Order Comment: Speci men Type: ARTERIAL BLOOD SPECIMENOrdering Facility: [facility] Address: [address] [place] [address] Performed By: #### A LLBG ####[facility] LABCLIA [id number] [place] [address] [place] Hemoglobin (Bld) [Mass/Vol] 10.2 g/dL Low 13.0-17.0 [facility] Comment on above: Order Comment: Speci men Type: ARTERIAL BLOOD SPECIMENOrdering Facility: [facility] Address: [address] [place] [address] Performed By: #### A LLBG ####[facility] LABCLIA [id number] [place] [address] [place] Lactate [Moles/Vol] 1.3 mmol/L Normal 0.5-2.2 [facility] Comment on above: Order Comment: Speci men Type: ARTERIAL BLOOD SPECIMENOrdering Facility: [facility] Address: [address] [id number] Performed By: #### A LLBG ####[facility] LABCLIA [id number] [place] [id number] [place] Methemoglobin (Bld) [Mass fraction] 1.4 % Normal 0.0-1.5 [facility] Comment on above: Order Comment: Speci men Type: ARTERIAL BLOOD SPECIMENOrdering Facility: [facility] Address: [address] [place], [place] [address] Performed By: #### A LLBG ####[facility] LABCLIA [id number] [place] [address] [place] NOTIFIED WHOM Everton Fung RN ORSepideh Arrieta Normal [facility] Comment on above: Order Comment: Speci men Type: ARTERIAL BLOOD SPECIMENOrdering Facility: [facility] Address: [address] [place] [address] Performed By: #### A LLBG ####[facility] LABCLIA [id number] [address] [address] [place] Oxygen (Bld) [Partial pressure] 324 mm Hg High 85-95 [facility] Comment on above: Order Comment: Speci men Type: ARTERIAL BLOOD SPECIMENOrdering Facility: [facility] Address: [address] [place], [place] [address] Performed By: #### A LLBG ####[facility] LABCLIA [id number] [address] [address] [place] Oxygen adjusted to patient's actual temperature (Bld) [Partial pressure] 324 mmHg High 85-95 [facility] Comment on above: Order Comment: Speci men Type: ARTERIAL BLOOD SPECIMENOrdering Facility: [facility] Address: [address] [place], [place] [address] Performed By: #### A LLBG ####[facility] LABCLIA [id number] [address] [address] [place] Oxyhemoglobin (BldA) [Mass fraction] 97 % Normal 95-98 [facility] Comment on above: Order Comment: Speci men Type: ARTERIAL BLOOD SPECIMENOrdering Facility: [facility] Address: [address] [place] [address] Performed By: #### A LLBG ####[facility] LABCLIA [id number] [place] [address] [place] pH (Bld) 7.35 [pH] Normal 7.35-7.45 [facility] Comment on above: Order Comment: Speci men Type: ARTERIAL BLOOD SPECIMENOrdering Facility: [facility] Address: [address] [place] [address] Performed By: #### A LLBG ####[facility] LABCLIA [id number] [place] [address] [place] pH adjusted to patient's actual temperature (Bld) 7.35 Normal 7.35-7.45 [facility] Comment on above: Order Comment: Speci men Type: ARTERIAL BLOOD SPECIMENOrdering Facility: [facility] Address: [address] [place] [address] Performed By: #### A LLBG ####[facility] LABCLIA [id number] [place] [address] [place] Potassium [Moles/Vol] 7.2 mmol/L Critically high 3.5-5.0 [facility] Comment on above: Order Comment: Speci men Type: ARTERIAL BLOOD SPECIMENOrdering Facility: [facility] Address: [address] [place] [address] Performed By: #### A LLBG ####[facility] LABCLIA [id number] [place] [address] [place] Sodium [Moles/Vol] 126 mmol/L Low 136-144 [facility] Comment on above: Order Comment: Speci men Type: ARTERIAL BLOOD SPECIMENOrdering Facility: [facility] Address: [address] [place] [address] Performed By: #### A LLBG ####[facility] [id number] [place] [address] [place] Base deficit (BldA) [Moles/Vol] -4 mmol/L Low -2-0 [facility] Comment on above: Order Comment: Speci men Type: ARTERIAL BLOOD SPECIMENOrdering Facility: [facility] Address: [address] [place] [address] Performed By: #### A LLBG ####[facility] [id number] [place] [address] [place] Calcium.ionized (Bld) [Mass/Vol] 1.28 mmol/L Normal 1.08-1.30 [facility] Comment on above: Order Comment: Speci men Type: ARTERIAL BLOOD SPECIMENOrdering Facility: [facility] Address: [address] [place] [address] Performed By: #### A LLBG ####[facility] [id number] [place] [address] [place] Calcium.ionized adjusted to pH 7.4 (BldA) [Moles/Vol] 1.23 mmol/L Normal 1.08-1.30 [facility] Comment on above: Order Comment: Speci men Type: ARTERIAL BLOOD SPECIMENOrdering Facility: [facility] Address: [address] [place] [address] Performed By: #### A LLBG ####[facility] [id number] [place] [address] [place] Carboxyhemoglobin (BldA) [Mass fraction] 1.0 % Normal 0.0-2.0 [facility] Comment on above: Order Comment: Speci men Type: ARTERIAL BLOOD SPECIMENOrdering Facility: [facility] Address: [address] [place] [address] Result Comment: Carb oxyhemoglobin Reference Range for Smokers: 2.0-8.0% Performed By: #### A LLBG ####[facility] LABCLIA [id number] [place] [address] [place] CO2 (Bld) [Partial pressure] 42 mm Hg Normal 36-46 [facility] Comment on above: Order Comment: Speci men Type: ARTERIAL BLOOD SPECIMENOrdering Facility: [facility] Address: [address] [place] [address] Performed By: #### A LLBG ####[facility] LABCLIA [id number] [place] [address] [place] CO2 adjusted to patient's actual temperature (Bld) [Partial pressure] 42 mmHg Normal 36-46 [facility] Comment on above: Order Comment: Speci men Type: ARTERIAL BLOOD SPECIMENOrdering Facility: [facility] Address: [address] [place] [address] Performed By: #### A LLBG ####[facility] LABCLIA [id number] [place] [address] [place] Glucose [Mass/Vol] 111 mg/dL High 60-105 [facility] Comment on above: Order Comment: Speci men Type: ARTERIAL BLOOD SPECIMENOrdering Facility: [facility] Address: [address] [place] [address] Performed By: #### A LLBG ####[facility] LABCLIA [id number] [place] [address] [place] HCO3 (Bld) [Moles/Vol] 22 mmol/L Normal 22-26 [facility] Comment on above: Order Comment: Speci men Type: ARTERIAL BLOOD SPECIMENOrdering Facility: [facility] Address: [address] [place] [address] Performed By: #### A LLBG ####[facility] LABCLIA [id number] [place] [address] [place] Hematocrit (Bld) [Volume fraction] 48.1 % Normal 39.0-51.0 [facility] Comment on above: Order Comment: Speci men Type: ARTERIAL BLOOD SPECIMENOrdering Facility: [facility] Address: [address] [place] [address] Performed By: #### A LLBG ####[facility] LABIA [id number] [place] [address] [place] Hemoglobin (Bld) [Mass/Vol] 15.7 g/dL Normal 13.0-17.0 [facility] Comment on above: Order Comment: Speci men Type: ARTERIAL BLOOD SPECIMENOrdering Facility: [facility] Address: [address] [place] [address] Performed By: #### A LLBG ####[facility] LABIA [id number] [place] [address] [place] Lactate [Moles/Vol] 0.7 mmol/L Normal 0.5-2.2 [facility] Comment on above: Order Comment: Speci men Type: ARTERIAL BLOOD SPECIMENOrdering Facility: [facility] Address: [address] [place] [address] Performed By: #### A LLBG ####[facility] LABIA [id number] [place] [address] [place] Methemoglobin (Bld) [Mass fraction] 1.2 % Normal 0.0-1.5 [facility] Comment on above: Order Comment: Speci men Type: ARTERIAL BLOOD SPECIMENOrdering Facility: [facility] Address: [address] [place] [address] Performed By: #### A LLBG ####[facility] LABIA [id number] [place] [address] [place] Oxygen (Bld) [Partial pressure] 100 mm Hg High 85-95 [facility] Comment on above: Order Comment: Speci men Type: ARTERIAL BLOOD SPECIMENOrdering Facility: [facility] Address: [address] [place] [address] Performed By: #### A LLBG ####[facility] LABCLIA [id number] [place] [address] [place] Oxygen adjusted to patient's actual temperature (Bld) [Partial pressure] 100 mmHg High 85-95 [facility] Comment on above: Order Comment: Speci men Type: ARTERIAL BLOOD SPECIMENOrdering Facility: [facility] Address: [address] [place] [address] Performed By: #### A LLBG ####[facility] LABIA [id number] [place] [address] [place] Oxyhemoglobin (BldA) [Mass fraction] 95 % Normal 95-98 [facility] Comment on above: Order Comment: Speci men Type: ARTERIAL BLOOD SPECIMENOrdering Facility: [facility] Address: [address] [place] [address] Performed By: #### A LLBG ####[facility] LABIA [id number] [place] [address] [place] pH (Bld) 7.33 [pH] Low 7.35-7.45 [facility] Comment on above: Order Comment: Speci men Type: ARTERIAL BLOOD SPECIMENOrdering Facility: [facility] Address: [address] [place] [address] Performed By: #### A LLBG ####[facility] LABIA [id number] [place] [address] [place] pH adjusted to patient's actual temperature (Bld) 7.33 Low 7.35-7.45 [facility] Comment on above: Order Comment: Speci men Type: ARTERIAL BLOOD SPECIMENOrdering Facility: [facility] Address: [address] [place] [address] Performed By: #### A LLBG ####[facility] LABIA [id number] [place] [address] [place] Potassium [Moles/Vol] 4.9 mmol/L Normal 3.5-5.0 [facility] Comment on above: Order Comment: Speci men Type: ARTERIAL BLOOD SPECIMENOrdering Facility: [facility] Address: [address] [place] [address] Performed By: #### A LLBG ####[facility] LABCLIA [id number] [place] [id number] [place] Sodium [Moles/Vol] 133 mmol/L Low 136-144 [facility] Comment on above: Order Comment: Speci men Type: ARTERIAL BLOOD SPECIMENOrdering Facility: [facility] Address: [address] [place] [address] Performed By: #### A LLBG ####[facility] LABCLIA [id number] [place] [address] [place] Basic metabolic 2000 panelon 06-18-2024 Anion gap [Moles/Vol] 14 mmol/L Normal 8-15 [facility] Comment on above: Order Comment: Speci men Type: BLOOD SPECIMENOrdering Facility: [facility] Address: [address] [place] [address] Performed By: #### 2 4321-2, , 2776- ####[facility] LABCLIA [id number] [place] [address] [place] Calcium [Mass/Vol] 9.6 mg/dL Normal 8.5-10.2 [facility] Comment on above: Order Comment: Speci men Type: BLOOD SPECIMENOrdering Facility: [facility] Address: [address] [place] [address] Performed By: #### 2 4321-2, 00035-1, 2777- ####[facility] LABCLIA [id number] [place] [id number] [place] Chloride [Moles/Vol] 102 mmol/L Normal 98-107 [facility] Comment on above: Order Comment: Speci men Type: BLOOD SPECIMENOrdering Facility: [facility] Address: [address] [place] [address] Performed By: #### 2 4321-2, , 2776-11 ####[facility] LABIA [id number] [place] [address] [place] CO2 [Moles/Vol] 20 mmol/L Low 22-30 [facility] Comment on above: Order Comment: Speci men Type: BLOOD SPECIMENOrdering Facility: [facility] Address: [address] [place] [address] Performed By: #### 2 4321-2, , 2776-11 ####[facility] [id number] [place] [address] [place] Creatinine [Mass/Vol] 1.55 mg/dL High 0.73-1.22 [facility] Comment on above: Order Comment: Speci men Type: BLOOD SPECIMENOrdering Facility: [facility] Address: [address] [place] [address] Performed By: #### 2 4321-2, , 2776-11 ####[facility] [id number] [place] [address] [place] Creatinine and Glomerular filtration rate.predicted panel (S/P/Bld) 46 mL/min/1.73m??? Low >=60 [facility] Comment on above: Order Comment: Speci men Type: BLOOD SPECIMENOrdering Facility: [facility] Address: [address] [place] [address] Result Comment: Annalisa mated Glomerular Filtration Rate [...] Performed By: #### 2 4321-2, , 2776-11 ####[facility] LABCLIA [id number] [address] [address] [place] Glucose [Mass/Vol] 94 mg/dL Normal 74-99 [facility] Comment on above: Order Comment: Speci men Type: BLOOD SPECIMENOrdering Facility: [facility] Address: [address] [place] [address] Result Comment: The [place] [employer] (ADA) provides guidance for cutoff [...] Standards of Medical Care in Diabetes 2016, [place] [employer]. Diabetes Care. 2016.39(Suppl 1). Performed By: #### 2 4321-2, , 2776-11 ####[facility] LABIA [id number] [place] [address] [place] Potassium [Moles/Vol] 5.3 mmol/L High 3.7-5.1 [facility] Comment on above: Order Comment: Speci men Type: BLOOD SPECIMENOrdering Facility: [facility] Address: [address] [place] [address] Performed By: #### 2 4321-2, , 2776-11 ####[facility] LABIA [id number] [place] [address] [place] Sodium [Moles/Vol] 136 mmol/L Normal 136-144 [facility] Comment on above: Order Comment: Speci men Type: BLOOD SPECIMENOrdering Facility: [facility] Address: [address] [place] [address] Performed By: #### 2 4321-2, , 2776-11 ####[facility] LABCLIA [id number] [address] [address] [place] Urea nitrogen [Mass/Vol] 31 mg/dL High 9-24 [facility] Comment on above: Order Comment: Speci men Type: BLOOD SPECIMENOrdering Facility: [facility] Address: [address] [place], [place] [address] Performed By: #### 2 4321-2, 76594-1, 2776-11 ####[facility] LABCLIA [id number] [address] [address] [place] Anion gap [Moles/Vol] 12 mmol/L Normal 8-15 [facility] Comment on above: Order Comment: Speci men Type: BLOOD SPECIMENOrdering Facility: [facility] Address: [address] [place] [address] Performed By: #### 1 9123-9, 2776-11, 84613-7 ####[facility] LABCLIA [id number] [address] [address] [place] Calcium [Mass/Vol] 9.5 mg/dL Normal 8.5-10.2 [facility] Comment on above: Order Comment: Speci men Type: BLOOD SPECIMENOrdering Facility: [facility] Address: [address] [place], [place] [address] Performed By: #### 1 23-9, 2776-11, 83522-8 ####[facility] LABCLIA [id number] [address] [address] [place] Chloride [Moles/Vol] 103 mmol/L Normal 98-107 [facility] Comment on above: Order Comment: Speci men Type: BLOOD SPECIMENOrdering Facility: [facility] Address: [address] [place], [place] [address] Performed By: #### 1 9123-9, 27705-11, 54180-4 ####[facility] LABCLIA [id number] [place] [address] [place] CO2 [Moles/Vol] 20 mmol/L Low 22-30 [facility] Comment on above: Order Comment: Speci men Type: BLOOD SPECIMENOrdering Facility: [facility] Address: [address] [place] [address] Performed By: #### 1 9123-9, 2777-, 86358-1 ####[facility] LABCLIA [id number] [place] [address] [place] Creatinine [Mass/Vol] 1.61 mg/dL High 0.73-1.22 [facility] Comment on above: Order Comment: Speci men Type: BLOOD SPECIMENOrdering Facility: [facility] Address: [address] [place] [address] Performed By: #### 1 9123-9, 2777, ####[facility] [id number] [place] [address] [place] Creatinine and Glomerular filtration rate.predicted panel (S/P/Bld) 44 mL/min/1.73m??? Low >=60 [facility] Comment on above: Order Comment: Speci kwasi Type: BLOOD SPECIMENOrdering Facility: [facility] Address: [address] [place] [address] Result Comment: Annalisa mated Glomerular Filtration Rate [...] GFR. Performed By: #### 1 9123-9, 2777-, 21468-2 ####[facility] LABCLIA [id number] [place] [id number] [place] Glucose [Mass/Vol] 90 mg/dL Normal 74-99 [facility] Comment on above: Order Comment: Speci men Type: BLOOD SPECIMENOrdering Facility: [facility] Address: [address] [place] [address] Result Comment: The [place] Diabetes Association (ADA) provides guidance for cutoff [...] Standards of Medical Care in Diabetes 2016, [place] [employer]. Diabetes Care. 2016.39(Suppl 1). Performed By: #### 1 9123-9, 2777-1, 24800-4 ####[facility] LABCLIA [id number] [place] [address] [place] Potassium [Moles/Vol] 4.8 mmol/L Normal 3.7-5.1 [facility] Comment on above: Order Comment: Bobby villalpando Type: BLOOD SPECIMENOrdering Facility: [facility] Address: [address] [place] [address] Performed By: #### 1 9123-9, 2777-1, 08937-5 ####[facility] LABCLIA [id number] [place] [address] [place] Sodium [Moles/Vol] 135 mmol/L Low 136-144 [facility] Comment on above: Order Comment: Chandanai men Type: BLOOD SPECIMENOrdering Facility: [facility] Address: [address] [place] [address] Performed By: #### 1 9123-9, 2777-1, 73185-4 ####[facility] LABCLIA [id number] [place] [address] [place] Urea nitrogen [Mass/Vol] 35 mg/dL High 9-24 [facility] Comment on above: Order Comment: Speci men Type: BLOOD SPECIMENOrdering Facility: [facility] Address: [address] [place] [address] Performed By: #### 1 9123-9, 2777-1, 35117-6 ####[facility] LABCLIA [id number] [place] [address] [place] CASE MANAGEMon 06-18-2024 CASE MANAGEM Normal [facility] CBC panel Auto (Bld)on 06-18 Erythrocyte distribution width (RBC) [Ratio] 14.3 % Normal 11.5-15.0 [facility] Comment on above: Order Comment: Speci men Type: BLOOD SPECIMENOrdering Facility: [facility] Address: [address] [place] [address] Performed By: #### 5 8410-2 ####[facility] LABCLIA [id number] [address] [place] Hematocrit (Bld) [Volume fraction] 31.6 % Low 39.0-51.0 [facility] Comment on above: Order Comment: Speci men Type: BLOOD SPECIMENOrdering Facility: [facility] Address: [address] [place] [address] Performed By: #### 5 8410-2 ####[facility] LABCLIA [id number] [place] [address] [place] MCH (RBC) [Entitic mass] 29.9 pg Normal 26.0-34.0 [facility] Comment on above: Order Comment: Speci men Type: BLOOD SPECIMENOrdering Facility: [facility] Address: [address] [place] [address] Performed By: #### 5 8410-2 ####[facility] LABCLIA [id number] [place] [address] [place] MCHC (RBC) [Mass/Vol] 32.6 g/dL Normal 30.5-36.0 [facility] Comment on above: Order Comment: Speci men Type: BLOOD SPECIMENOrdering Facility: [facility] Address: [address] [place] [address] Performed By: #### 5 8410-2 ####[facility] [id number] [place] [address] [place] MCV (RBC) [Entitic vol] 91.9 fL Normal 80.0-100.0 [facility] Comment on above: Order Comment: Speci men Type: BLOOD SPECIMENOrdering Facility: [facility] Address: [address] [place] [address] Performed By: #### 5 8410-2 ####[facility] [id number] [place] [address] [place] Nucleated RBC (Bld) [#/Vol] 10*3/uL Normal <0.01 [facility] Comment on above: Order Comment: Speci men Type: BLOOD SPECIMENOrdering Facility: [facility] Address: [address] [place] [address] Performed By: #### 5 8410-2 ####[facility] [id number] [place] [address] [place] Platelet mean volume (Bld) [Entitic vol] 10.4 fL Normal 9.0-12.7 [facility] Comment on above: Order Comment: Speci men Type: BLOOD SPECIMENOrdering Facility: [facility] Address: [address] [place] [address] Performed By: #### 5 8410-2 ####[facility] [id number] [place] [address] [place] Platelets (Bld) [#/Vol] 193 10*3/uL Normal 150-400 [facility] Comment on above: Order Comment: Speci men Type: BLOOD SPECIMENOrdering Facility: [facility] Address: [address] [place] [address] Performed By: #### 5 8410-2 ####[facility] LABCLIA [id number] [place] [address] [place] RBC (Bld) [#/Vol] 3.44 10*6/uL Low 4.20-6.00 [facility] Comment on above: Order Comment: Speci men Type: BLOOD SPECIMENOrdering Facility: [facility] Address: [address] [place] [address] Performed By: #### 5 8410-2 ####[facility] LABIA [id number] [place] [address] [place] WBC (Bld) [#/Vol] 20.68 10*3/uL High 3.70-11.00 [facility] Comment on above: Order Comment: Speci men Type: BLOOD SPECIMENOrdering Facility: [facility] Address: [address] [place] [address] Performed By: #### 5 8410-2 ####[facility] LABIA [id number] [place] [address] [place] Erythrocyte distribution width (RBC) [Ratio] 14.2 % Normal 11.5-15.0 [facility] Comment on above: Order Comment: Speci men Type: BLOOD SPECIMENOrdering Facility: [facility] Address: [address] [place] [address] Performed By: #### 5 8410-2 ####[facility] LABIA [id number] [place] [address] [place] Hematocrit (Bld) [Volume fraction] 48.7 % Normal 39.0-51.0 [facility] Comment on above: Order Comment: Speci men Type: BLOOD SPECIMENOrdering Facility: [facility] Address: [address] [place] [address] Performed By: #### 5 8410-2 ####[facility] LABCLIA [id number] [place] [address] [place] Hemoglobin (Bld) [Mass/Vol] 16.0 g/dL Normal 13.0-17.0 [facility] Comment on above: Order Comment: Speci men Type: BLOOD SPECIMENOrdering Facility: [facility] Address: [address] [place] [address] Performed By: #### 5 8410-2 ####[facility] LABCLIA [id number] [place] [address] [place] MCH (RBC) [Entitic mass] 30.0 pg Normal 26.0-34.0 [facility] Comment on above: Order Comment: Speci men Type: BLOOD SPECIMENOrdering Facility: [facility] Address: [address] [place] [address] Performed By: #### 5 8410-2 ####[facility] LABCLIA [id number] [place] [address] [place] MCHC (RBC) [Mass/Vol] 32.9 g/dL Normal 30.5-36.0 [facility] Comment on above: Order Comment: Speci men Type: BLOOD SPECIMENOrdering Facility: [facility] Address: [address] [place] [address] Performed By: #### 5 8410-2 ####[facility] LABIA [id number] [place] [address] [place] MCV (RBC) [Entitic vol] 91.2 fL Normal 80.0-100.0 [facility] Comment on above: Order Comment: Speci men Type: BLOOD SPECIMENOrdering Facility: [facility] Address: [address] [place] [address] Performed By: #### 5 8410-2 ####[facility] LABCLIA [id number] [place] [address] [place] Nucleated RBC (Bld) [#/Vol] 10*3/uL Normal <0.01 [facility] Comment on above: Order Comment: Speci men Type: BLOOD SPECIMENOrdering Facility: [facility] Address: [address] [place] [address] Performed By: #### 5 8410-2 ####[facility] LABIA [id number] [place] [address] [place] Platelet mean volume (Bld) [Entitic vol] 10.4 fL Normal 9.0-12.7 [facility] Comment on above: Order Comment: Speci men Type: BLOOD SPECIMENOrdering Facility: [facility] [facility] Address: [address] [place] [address] Performed By: #### 5 8410-2 ####[facility] [id number] [place] [address] [place] Platelets (Bld) [#/Vol] 168 10*3/uL Normal 150-400 [facility] Comment on above: Order Comment: Speci men Type: BLOOD SPECIMENOrdering Facility: [facility] Address: [address] [place] [address] Performed By: #### 5 8410-2 ####[facility] [id number] [place] [address] [place] RBC (Bld) [#/Vol] 5.34 10*6/uL Normal 4.20-6.00 [facility] Comment on above: Order Comment: Speci men Type: BLOOD SPECIMENOrdering Facility: [facility] Address: [address] [place] [address] Performed By: #### 5 8410-2 ####[facility] [id number] [place] [address] [place] WBC (Bld) [#/Vol] 8.84 10*3/uL Normal 3.70-11.00 [facility] Comment on above: Order Comment: Speci men Type: BLOOD SPECIMENOrdering Facility: [facility] Address: [address] [place] [address] Performed By: #### 5 8410-2 ####[facility] LABCLIA [id number] [place] [address] [place] Erythrocyte distribution width (RBC) [Ratio] 14.2 % Normal 11.5-15.0 [facility] Comment on above: Order Comment: Speci men Type: BLOOD SPECIMENOrdering Facility: [facility] Address: [address] [place] [address] Performed By: #### 5 8410-2 ####[facility] LABCLIA [id number] [place] [address] [place] Hematocrit (Bld) [Volume fraction] 45.8 % Normal 39.0-51.0 [facility] Comment on above: Order Comment: Speci men Type: BLOOD SPECIMENOrdering Facility: [facility] Address: [address] [place] [address] Performed By: #### 5 8410-2 ####[facility] [id number] [place] [address] [place] Hemoglobin (Bld) [Mass/Vol] 14.9 g/dL Normal 13.0-17.0 [facility] Comment on above: Order Comment: Speci men Type: BLOOD SPECIMENOrdering Facility: [facility] Address: [address] [place] [address] Performed By: #### 5 8410-2 ####[facility] [id number] [place] [address] [place] MCH (RBC) [Entitic mass] 29.3 pg Normal 26.0-34.0 [facility] Comment on above: Order Comment: Speci men Type: BLOOD SPECIMENOrdering Facility: [facility] Address: [address] [place] [address] Performed By: #### 5 8410-2 ####[facility] [id number] [place] [address] [place] MCHC (RBC) [Mass/Vol] 32.5 g/dL Normal 30.5-36.0 [facility] Comment on above: Order Comment: Speci men Type: BLOOD SPECIMENOrdering Facility: [facility] Address: [address] [place] [address] Performed By: #### 5 8410-2 ####[facility] LABCL[facility] [id number] [place] [address] [place] MCV (RBC) [Entitic vol] 90.2 fL Normal 80.0-100.0 [facility] Comment on above: Order Comment: Speci men Type: BLOOD SPECIMENOrdering Facility: [facility] Address: [address] [place] [address] Performed By: #### 5 8410-2 ####[facility]CL[facility] [id number] [place] [address] [place] Nucleated RBC (Bld) [#/Vol] 10*3/uL Normal <0.01 [facility] Comment on above: Order Comment: Speci men Type: BLOOD SPECIMENOrdering Facility: [facility] Address: [address] [place] [address] Performed By: #### 5 8410-2 ####[facility]CL[facility] [id number] [place] [address] [place] Platelet mean volume (Bld) [Entitic vol] 10.8 fL Normal 9.0-12.7 [facility] Comment on above: Order Comment: Speci men Type: BLOOD SPECIMENOrdering Facility: [facility] Address: [address] [place] [address] Performed By: #### 5 8410-2 ####[facility]CL[facility] [id number] [place] [address] [place] Platelets (Bld) [#/Vol] 151 10*3/uL Normal 150-400 [facility] Comment on above: Order Comment: Speci men Type: BLOOD SPECIMENOrdering Facility: [facility] Address: [address] [place] [address] Performed By: #### 5 8410-2 ####[facility]CL[facility] [id number] [place] [address] [place] RBC (Bld) [#/Vol] 5.08 10*6/uL Normal 4.20-6.00 [facility] Comment on above: Order Comment: Speci men Type: BLOOD SPECIMENOrdering Facility: [facility] Address: [address] [place] [address] Performed By: #### 5 8410-2 ####[facility] [id number] [place] [address] [place] WBC (Bld) [#/Vol] 8.62 10*3/uL Normal 3.70-11.00 [facility] Comment on above: Order Comment: Speci men Type: BLOOD SPECIMENOrdering Facility: [facility] Address: [address] [place] [address] Performed By: #### 5 8410-2 ####[facility] [id number] [place] [address] [place] [id number] 06-18-2024 ECG01 Normal [facility] Fibrinogen PPP-mCncon 2023 Fibrinogen Coag (PPP) [Mass/Vol] 238 mg/dL Normal 200-400 [facility] Comment on above: Order Comment: Speci men Type: BLOOD SPECIMENOrdering Facility: [facility] Address: [address] [place] [address] Performed By: #### 3 255-7, 48667-8, 75364-2 ####[facility]CL[facility] [id number] [place] [address] [place] Fibrinogen Coag (PPP) [Mass/Vol] 185 mg/dL Low 200-400 [facility] Comment on above: Order Comment: Speci men Type: BLOOD SPECIMENOrdering Facility: [facility] Address: [address] [place] [address] Performed By: #### 3 255-7, 16140-9, 70997-5 ####[facility]CL[facility] [id number] [place] [address] [place] Gas and Carbon monoxide pane l (BldV)on 06-18-2024 BASE DEFICIT, VENOUS -6 mmol/L Low -2-0 [facility] Comment on above: Order Comment: Speci men Type: VENOUS BLOOD SPECIMENOrdering Facility: [facility] Address: [address] [place] [address] Performed By: #### 2 4344-4 ####[facility] [id number] [place] [address] [place] Calcium.ionized (Bld) [Mass/Vol] 1.15 mmol/L Normal 1.08-1.30 [facility] Comment on above: Order Comment: Speci men Type: VENOUS BLOOD SPECIMENOrdering Facility: [facility] Address: [address] [place] [address] Performed By: #### 2 4344-4 ####[facility] [id number] [place] [address] [place] Calcium.ionized adjusted to pH 7.4 (BldA) [Moles/Vol] 1.06 mmol/L Low 1.08-1.30 [facility] Comment on above: Order Comment: Speci men Type: VENOUS BLOOD SPECIMENOrdering Facility: [facility] Address: [address] [place] [address] Performed By: #### 2 4344-4 ####[facility] [id number] [place] [address] [place] Carboxyhemoglobin (BldV) [Mass fraction] 1.1 % Normal 0.0-2.0 [facility] Comment on above: Order Comment: Speci men Type: VENOUS BLOOD SPECIMENOrdering Facility: [facility] Address: [address] [place] [address] Result Comment: Carb oxyhemoglobin Reference Range for Smokers: 2.0-8.0% Performed By: #### 2 4344-4 ####[facility] LABCL[facility] [id number] [place] [address] [place] CO2 (BldV) [Partial pressure] 49 mm[Hg] Normal 42-55 [facility] Comment on above: Order Comment: Speci men Type: VENOUS BLOOD SPECIMENOrdering Facility: [facility] Address: [address] [place] [address] Performed By: #### 2 4344-4 ####[facility]CL[facility] [id number] [place] [address] [place] Glucose [Mass/Vol] 202 mg/dL High 60-105 [facility] Comment on above: Order Comment: Speci men Type: VENOUS BLOOD SPECIMENOrdering Facility: [facility] Address: [address] [place] [address] Performed By: #### 2 4344-4 ####[facility]CL[facility] [id number] [place] [address] [place] HCO3 (Bld) [Moles/Vol] 21 mmol/L Low 24-28 [facility] Comment on above: Order Comment: Speci men Type: VENOUS BLOOD SPECIMENOrdering Facility: [facility] Address: [address] [place] [address] Performed By: #### 2 4344-4 ####[facility]CL[facility] [id number] [place] [address] [place] Hematocrit (Bld) [Volume fraction] 31.7 % Low 39.0-51.0 [facility] Comment on above: Order Comment: Speci men Type: VENOUS BLOOD SPECIMENOrdering Facility: [facility] Address: [address] [place] [address] Performed By: #### 2 4344-4 ####[facility]CL[facility] [id number] [place] [address] [place] Lactate [Moles/Vol] 7.3 mmol/L High 0.5-2.2 [facility] Comment on above: Order Comment: Speci men Type: VENOUS BLOOD SPECIMENOrdering Facility: [facility] Address: [address] [place] [address] Performed By: #### 2 4344-4 ####[facility] [id number] [place] [address] [place] Methemoglobin (Bld) [Mass fraction] 0.6 % Normal 0.0-1.5 [facility] Comment on above: Order Comment: Speci men Type: VENOUS BLOOD SPECIMENOrdering Facility: [facility] Address: [address] [place] [address] Performed By: #### 2 4344-4 ####[facility] [id number] [place] [address] [place] Oxygen (BldV) [Partial pressure] 39 mm[Hg] Normal 35-45 [facility] Comment on above: Order Comment: Speci men Type: VENOUS BLOOD SPECIMENOrdering Facility: [facility] Address: [address] [place] [address] Performed By: #### 2 4344-4 ####[facility] [id number] [place] [address] [place] Oxygen saturation in Venous blood 60 % Normal 60-85 [facility] Comment on above: Order Comment: Speci men Type: VENOUS BLOOD SPECIMENOrdering Facility: [facility] Address: [address] [place], [place] [address] Performed By: #### 2 4344-4 ####[facility]CL[facility] [id number] [address] [address] [place] Oxyhemoglobin (BldV) [Mass fraction] 59 % Low 60-85 [facility] Comment on above: Order Comment: Speci men Type: VENOUS BLOOD SPECIMENOrdering Facility: [facility] Address: [address] [place] [address] Performed By: #### 2 4344-4 ####[facility]CL[facility] [id number] [place] [address] [place] pH (BldV) 7.25 [pH] Low 7.32-7.42 [facility] Comment on above: Order Comment: Speci men Type: VENOUS BLOOD SPECIMENOrdering Facility: [facility] Address: [address] [place] [address] Performed By: #### 2 4344-4 ####[facility]CL[facility] [id number] [place] [address] [place] Sodium [Moles/Vol] 139 mmol/L Normal 136-144 [facility] Comment on above: Order Comment: Speci men Type: VENOUS BLOOD SPECIMENOrdering Facility: [facility] Address: [address] [place] [address] Performed By: #### 2 4344-4 ####[facility]CL[facility] [id number] [place] [address] [place] BASE DEFICIT, VENOUS -4 mmol/L Low -2-0 [facility] Comment on above: Order Comment: Speci men Type: VENOUS BLOOD SPECIMENOrdering Facility: [facility] Address: [address] [place] [address] Performed By: #### 2 4344-4 ####[facility]CL[facility] [id number] [place] [address] [place] Calcium.ionized (Bld) [Mass/Vol] 1.17 mmol/L Normal 1.08-1.30 [facility] Comment on above: Order Comment: Speci men Type: VENOUS BLOOD SPECIMENOrdering Facility: [facility] Address: [address] [place] [address] Performed By: #### 2 4344-4 ####[facility]CL[facility] [id number] [place] [address] [place] Calcium.ionized adjusted to pH 7.4 (BldA) [Moles/Vol] 1.09 mmol/L Normal 1.08-1.30 [facility] Comment on above: Order Comment: Speci men Type: VENOUS BLOOD SPECIMENOrdering Facility: [facility] Address: [address] [place] [address] Performed By: #### 2 4344-4 ####[facility]CL[facility] [id number] [place] [address] [place] Carboxyhemoglobin (BldV) [Mass fraction] 1.0 % Normal 0.0-2.0 [facility] Comment on above: Order Comment: Speci men Type: VENOUS BLOOD SPECIMENOrdering Facility: [facility] Address: [address] [place] [address] Result Comment: Carb oxyhemoglobin Reference Range for Smokers: 2.0-8.0% Performed By: #### 2 4344-4 ####[facility]CL[facility] [id number] [place] [address] [place] CO2 (BldV) [Partial pressure] 51 mm[Hg] Normal 42-55 [facility] Comment on above: Order Comment: Speci men Type: VENOUS BLOOD SPECIMENOrdering Facility: [facility] Address: [address] [place] [address] Performed By: #### 2 4344-4 ####[facility]CL[facility] [id number] [place] [address] [place] CO2 adjusted to patient's actual temperature (BldV) [Partial pressure] 47 mmHg Normal 42-55 [facility] Comment on above: Order Comment: Speci men Type: VENOUS BLOOD SPECIMENOrdering Facility: [facility] Address: [address] [place] [address] Performed By: #### 2 4344-4 ####[facility]CL[facility] [id number] [place] [address] [place] HCO3 (Bld) [Moles/Vol] 23 mmol/L Low 24-28 [facility] Comment on above: Order Comment: Speci men Type: VENOUS BLOOD SPECIMENOrdering Facility: [facility] Address: [address] [place] [address] Performed By: #### 2 4344-4 ####[facility]CL[facility] [id number] [place] [address] [place] Hematocrit (Bld) [Volume fraction] 35.1 % Low 39.0-51.0 [facility] Comment on above: Order Comment: Speci men Type: VENOUS BLOOD SPECIMENOrdering Facility: [facility] Address: [address] [place] [address] Performed By: #### 2 4344-4 ####[facility] [id number] [place] [address] [place] Hemoglobin (Bld) [Mass/Vol] 11.4 g/dL Low 13.0-17.0 [facility] Comment on above: Order Comment: Speci men Type: VENOUS BLOOD SPECIMENOrdering Facility: [facility] Address: [address] [place] [address] Performed By: #### 2 4344-4 ####[facility] [id number] [place] [address] [place] Lactate [Moles/Vol] 4.4 mmol/L High 0.5-2.2 [facility] Comment on above: Order Comment: Speci men Type: VENOUS BLOOD SPECIMENOrdering Facility: [facility] Address: [address] [place] [address] Performed By: #### 2 4344-4 ####[facility]CL[facility] [id number] [place] [address] [place] Methemoglobin (Bld) [Mass fraction] 0.7 % Normal 0.0-1.5 [facility] Comment on above: Order Comment: Speci men Type: VENOUS BLOOD SPECIMENOrdering Facility: [facility] Address: [address] [place] [address] Performed By: #### 2 4344-4 ####[facility]CL[facility] [id number] [address] [address] [place] Oxygen (BldV) [Partial pressure] 35 mm[Hg] Normal 35-45 [facility] Comment on above: Order Comment: Speci men Type: VENOUS BLOOD SPECIMENOrdering Facility: [facility] Address: [address] [place] [id number] Performed By: #### 2 4344-4 ####[facility]CL[facility] [id number] [address] [address] [place] Oxygen adjusted to patient's actual temperature (BldV) [Partial pressure] 31 mmHg Low 35-45 [facility] Comment on above: Order Comment: Speci men Type: VENOUS BLOOD SPECIMENOrdering Facility: [facility] Address: [address] [place] [address] Performed By: #### 2 4344-4 ####[facility]CL[facility] [id number] [address] [address] [place] Oxygen saturation in Venous blood 56 % Low 60-85 [facility] Comment on above: Order Comment: Speci men Type: VENOUS BLOOD SPECIMENOrdering Facility: [facility] Address: [address] [place] [address] Performed By: #### 2 4344-4 ####[facility]CL[facility] [id number] [address] [address] [place] Oxyhemoglobin (BldV) [Mass fraction] 55 % Low 60-85 [facility] Comment on above: Order Comment: Speci men Type: VENOUS BLOOD SPECIMENOrdering Facility: [facility] Address: [address] [place] [address] Performed By: #### 2 4344-4 ####[facility]CL[facility] [id number] [place] [address] [place] pH (BldV) 7.27 [pH] Low 7.32-7.42 [facility] Comment on above: Order Comment: Speci men Type: VENOUS BLOOD SPECIMENOrdering Facility: [facility] Address: [address] [place] [address] Performed By: #### 2 4344-4 ####[facility] [id number] [place] [address] [place] pH adjusted to patient's actual temperature (BldV) 7.30 Low 7.32-7.42 [facility] Comment on above: Order Comment: Speci men Type: VENOUS BLOOD SPECIMENOrdering Facility: [facility] Address: [address] [place] [address] Performed By: #### 2 4344-4 ####[facility] [id number] [place] [address] [place] Potassium [Moles/Vol] 5.6 mmol/L High 3.5-5.0 [facility] Comment on above: Order Comment: Speci men Type: VENOUS BLOOD SPECIMENOrdering Facility: [facility] Address: [address] [place] [address] Performed By: #### 2 4344-4 ####[facility] [id number] [place] [address] [place] BASE DEFICIT, VENOUS -1 mmol/L Normal -2-0 [facility] Comment on above: Order Comment: Speci men Type: VENOUS BLOOD SPECIMENOrdering Facility: [facility] Address: [address] [place] [address] Performed By: #### 2 4344-4 ####[facility] [id number] [place] [address] [place] Calcium.ionized (Bld) [Mass/Vol] 1.10 mmol/L Normal 1.08-1.30 [facility] Comment on above: Order Comment: Speci men Type: VENOUS BLOOD SPECIMENOrdering Facility: [facility] Address: [address] [place] [address] Performed By: #### 2 4344-4 ####[facility] [id number] [place] [address] [place] Calcium.ionized adjusted to pH 7.4 (BldA) [Moles/Vol] 1.05 mmol/L Low 1.08-1.30 [facility] Comment on above: Order Comment: Speci men Type: VENOUS BLOOD SPECIMENOrdering Facility: [facility] Address: [address] [place] [address] Performed By: #### 2 4344-4 ####[facility] [id number] [place] [address] [place] Carboxyhemoglobin (BldV) [Mass fraction] 1.3 % Normal 0.0-2.0 [facility] Comment on above: Order Comment: Speci men Type: VENOUS BLOOD SPECIMENOrdering Facility: [facility] Address: [address] [place] [address] Result Comment: Carb oxyhemoglobin Reference Range for Smokers: 2.0-8.0% Performed By: #### 2 4344-4 ####[facility] [id number] [place] [address] [place] CO2 (BldV) [Partial pressure] 48 mm[Hg] Normal 42-55 [facility] Comment on above: Order Comment: Speci men Type: VENOUS BLOOD SPECIMENOrdering Facility: [facility] Address: [address] [place] [address] Performed By: #### 2 4344-4 ####[facility]CL[facility] [id number] [place] [address] [place] CO2 adjusted to patient's actual temperature (BldV) [Partial pressure] 48 mmHg Normal 42-55 [facility] Comment on above: Order Comment: Speci men Type: VENOUS BLOOD SPECIMENOrdering Facility: [facility] Address: [address] [place] [id number] Performed By: #### 2 4344-4 ####[facility] LABCLIA [id number] [address] [address] [place] COMMENTS Critical Value: K Normal [facility] Comment on above: Order Comment: Speci men Type: VENOUS BLOOD SPECIMENOrdering Facility: [facility] Address: [address] [place] [address] Performed By: #### 2 4344-4 ####[facility] LABCL[facility] [id number] [place] [address] [place] DATE/TIME NOTIFIED [id number] PM Normal C [facility]Aff[facility] Comment on above: Order Comment: Speci men Type: VENOUS BLOOD SPECIMENOrdering Facility: [facility] Address: [address] [place] [address] Performed By: #### 2 4344-4 ####[facility]CL[facility] [id number] [place] [address] [place] Glucose [Mass/Vol] 122 mg/dL High 60-105 [facility] Comment on above: Order Comment: Speci men Type: VENOUS BLOOD SPECIMENOrdering Facility: [facility] Address: [address] [place], [place] [address] Performed By: #### 2 4344-4 ####[facility] LABCLIA [id number] [place] [id number] [place] HCO3 (Bld) [Moles/Vol] 25 mmol/L Normal 24-28 [facility] Comment on above: Order Comment: Speci men Type: VENOUS BLOOD SPECIMENOrdering Facility: [facility] Address: [address] [place], [place] [address] Performed By: #### 2 4344-4 ####[facility]CL[facility] [id number] [place] [address] [place] Hematocrit (Bld) [Volume fraction] 31.7 % Low 39.0-51.0 [facility] Comment on above: Order Comment: Speci men Type: VENOUS BLOOD SPECIMENOrdering Facility: [facility] [place] Address: [address] [place] [address] Performed By: #### 2 4344-4 ####[facility] LABIA [id number] [place] [address] [place] Hemoglobin (Bld) [Mass/Vol] 10.3 g/dL Low 13.0-17.0 [facility] Comment on above: Order Comment: Speci men Type: VENOUS BLOOD SPECIMENOrdering Facility: [facility] Address: [address] [place] [address] Performed By: #### 2 4344-4 ####[facility] [id number] [place] [address] [place] Lactate [Moles/Vol] 1.1 mmol/L Normal 0.5-2.2 [facility] Comment on above: Order Comment: Speci men Type: VENOUS BLOOD SPECIMENOrdering Facility: [facility] Address: [address] [place] [address] Performed By: #### 2 4344-4 ####[facility] [id number] [place] [address] [place] Methemoglobin (Bld) [Mass fraction] 1.0 % Normal 0.0-1.5 [facility] Comment on above: Order Comment: Speci men Type: VENOUS BLOOD SPECIMENOrdering Facility: [facility] Address: [address] [place] [address] Performed By: #### 2 4344-4 ####[facility] LABIA [id number] [address] [place] NOTIFIED WHOM Everton Fung RN ORSepideh Arrieta Normal [facility] Comment on above: Order Comment: Speci men Type: VENOUS BLOOD SPECIMENOrdering Facility: [facility] Address: [address] [place] [address] Performed By: #### 2 4344-4 ####[facility] LABCLIA [id number] [address] [address] [place] Oxygen (BldV) [Partial pressure] 53 mm[Hg] High 35-45 [facility] Comment on above: Order Comment: Speci men Type: VENOUS BLOOD SPECIMENOrdering Facility: [facility] Address: [address] [place] [address] Performed By: #### 2 4344-4 ####[facility] LABCLIA [id number] [address] [address] [place] Oxygen adjusted to patient's actual temperature (BldV) [Partial pressure] 53 mmHg High 35-45 [facility] Comment on above: Order Comment: Speci men Type: VENOUS BLOOD SPECIMENOrdering Facility: [facility] Address: [address] [place] [address] Performed By: #### 2 4344-4 ####[facility] LABCLIA [id number] [address] [address] [place] Oxygen saturation in Venous blood 85 % Normal 60-85 [facility] Comment on above: Order Comment: Speci men Type: VENOUS BLOOD SPECIMENOrdering Facility: [facility] Address: [address] [place] [address] Performed By: #### 2 4344-4 ####[facility] LABCLIA [id number] [address] [address] [place] Oxyhemoglobin (BldV) [Mass fraction] 83 % Normal 60-85 [facility] Comment on above: Order Comment: Speci men Type: VENOUS BLOOD SPECIMENOrdering Facility: [facility] Address: [address] [place] [address] Performed By: #### 2 4344-4 ####[facility] LABCLIA [id number] [place] [address] [place] pH (BldV) 7.33 [pH] Normal 7.32-7.42 [facility] Comment on above: Order Comment: Speci men Type: VENOUS BLOOD SPECIMENOrdering Facility: [facility] Address: [address] [place] [address] Performed By: #### 2 4344-4 ####[facility] LABIA [id number] [place] [address] [place] pH adjusted to patient's actual temperature (BldV) 7.33 Normal 7.32-7.42 [facility] Comment on above: Order Comment: Speci men Type: VENOUS BLOOD SPECIMENOrdering Facility: [facility] Address: [address] [place] [address] Performed By: #### 2 4344-4 ####[facility] LABIA [id number] [place] [address] [place] Potassium [Moles/Vol] 7.4 mmol/L Critically high 3.5-5.0 [facility] Comment on above: Order Comment: Speci men Type: VENOUS BLOOD SPECIMENOrdering Facility: [facility] Address: [address] [place] [address] Performed By: #### 2 4344-4 ####[facility] LABIA [id number] [place] [address] [place] Sodium [Moles/Vol] 127 mmol/L Low 136-144 [facility] Comment on above: Order Comment: Speci men Type: VENOUS BLOOD SPECIMENOrdering Facility: [facility] Address: [address] [place] [address] Performed By: #### 2 4344-4 ####[facility] LABIA [id number] [place] [address] [place] INTRAOPERATIVE ECHO PREon INTRAOPERATIVE ECHO PRE Normal [facility] Magnesium SerPl-mCncon 06-18 Magnesium [Mass/Vol] 2.3 mg/dL Normal 1.7-2.3 [facility] Comment on above: Order Comment: Speccharlie villalpando Type: BLOOD SPECIMENOrdering Facility: [facility] Address: [address] [place] [address] Performed By: #### 2 4321-2, 62122-1, 2777-1 ####[facility] LABCLIA [id number] [address] [address] [place] Magnesium [Mass/Vol] 2.2 mg/dL Normal 1.7-2.3 [facility] Comment on above: Order Comment: Bobby villalpando Type: BLOOD SPECIMENOrdering Facility: [facility] Address: [address] [place] [address] Performed By: #### 1 9123-9, 2777-1, 46843-5 ####[facility] LABCLIA [id number] [place] [address] [place] NUTRITIONon 06-18-2024 NUTRITION Normal [facility] OPERATIVE NOon 06-18-2024 OPERATIVE NO Normal [facility] PT panel Coag (PPP)on 2023 INR Coag (PPP) [Relative time] 1.2 {INR} Normal 0.9-1.3 [facility] Comment on above: Order Comment: Speci kwasi Type: BLOOD SPECIMENOrdering Facility: [facility] Address: [address] [place] [address] Result Comment: Rizwana min K Antagonist (VKA) Therapeutic Range: INR 2 to 3 (Target INR of 2.5)Note: For patients treated with VKA drugs, such as warfarin, the [place] [employer] 2012 Guideline recommends [...] al. Chest 2012, 141:7S-47SJames RA, et al. [facility] 2017, 70: 252-289 Performed By: #### 3 255-7, 65627-8, 04489-7 ####[facility] [id number] [place] [id number] [place] PT Coag (PPP) [Time] 12.2 s Normal 9.7-13.0 [facility] Comment on above: Order Comment: Bobby villalpando Type: BLOOD SPECIMENOrdering Facility: [facility] Address: [address] [place] [address] Performed By: #### 3 255-7, 90667-4, 36100-8 ####[facility] [id number] [place] [address] [place] INR Coag (PPP) [Relative time] 1.6 {INR} High 0.9-1.3 [facility] Comment on above: Order Comment: Bobby villalpando Type: BLOOD SPECIMENOrdering Facility: [facility] Address: [address] [place] [address] Result Comment: Rizwana min K Antagonist (VKA) Therapeutic Range: INR 2 to 3 (Target INR of 2.5)Note: For patients treated with VKA drugs, such as warfarin, the [place] [employer] 2012 Guideline recommends [...] al. Chest 2012, 141:7S-47SNishimura RA, et al. [facility] 2017, 70: 252-289 Performed By: #### 3 255-7, 98295-9, 53918-7 ####[facility] LABCLIA [id number] [place] [address] [place] PT Coag (PPP) [Time] 16.7 s High 9.7-13.0 [facility] Comment on above: Order Comment: Speci men Type: BLOOD SPECIMENOrdering Facility: [facility] Address: [address] [place] [address] Performed By: #### 3 255-7, 58343-0, 28057-8 ####[facility] LABCLIA [id number] [place] [address] [place] PTT, ANTICOAGULANT THERAPYon 06-18-2024 aPTT Coag (PPP) [Time] 61.9 s High 23.0-32.4 [facility] Comment on above: Order Comment: Speci men Type: BLOOD SPECIMENOrdering Facility: [facility] Address: [address] [place] [address] Performed By: #### P TTA ####[facility] LABCLIA [id number] [place] [address] [place] Phosphate SerPl-mCncon 06-18 Phosphate [Mass/Vol] 4.2 mg/dL Normal 2.7-4.8 [facility] Comment on above: Order Comment: Speci men Type: BLOOD SPECIMENOrdering Facility: [facility] Address: [address] [place] [address] Performed By: #### 2 4321-2, 58705-1, 2777-1 ####[facility] LABCLIA [id number] [place] [address] [place] Phosphate [Mass/Vol] 4.9 mg/dL High 2.7-4.8 [facility] Comment on above: Order Comment: Speci men Type: BLOOD SPECIMENOrdering Facility: [facility] Address: [address] [place] [address] Performed By: #### 1 9123-9, 2777-1, 88181-1 ####[facility] LABCLIA [id number] [place] [address] [place] Platelets Auto (Bld) [#/Vol] on 06-18-2024 Platelets (Bld) [#/Vol] 180 10*3/uL Normal 150-400 [facility] Comment on above: Order Comment: Speci men Type: BLOOD SPECIMENOrdering Facility: [facility] Address: [address] [place] [address] Performed By: #### 7 77-3 ####[facility] LABIA [id number] [address] Platelets (Bld) [#/Vol] 58 10*3/uL Low 150-400 [facility] Comment on above: Order Comment: Speci men Type: BLOOD SPECIMENOrdering Facility: [facility] Address: [address] [place] [address] Result Comment: No c lot detected. Performed By: #### 7 77-3 ####[facility] LABIA [id number] [address] [place] THROMBOGRAPH PANELon 024 Clot angle TEG (Bld) [Angle] 62.4 degrees Normal 47.0-74.0 [facility] Comment on above: Order Comment: Speci men Type: BLOOD SPECIMENOrdering Facility: [facility] Address: [address] [place] [address] Performed By: #### T EGPNP ####[facility] LABCLIA [id number] [address] [place] Clot Lysis 30 Min post maximum clot amplitude TEG (Bld) [Length fraction] 0.0 % Normal 0.0-8.0 [facility] Comment on above: Order Comment: Speci men Type: BLOOD SPECIMENOrdering Facility: [facility] Address: [address] [place] [address] Performed By: #### T EGPNP ####[facility] LABCLIA [id number] [place] [address] [place] Clotting time TEG (Bld) 2.3 minutes Low 4.0-10.0 [facility] Comment on above: Order Comment: Speci men Type: BLOOD SPECIMENOrdering Facility: [facility] Address: [address] [place] [address] Performed By: #### T EGPNP ####[facility] LABCLIA [id number] [place] [address] [place] Coagulation index TEG Qn (Bld) 1.2 Normal -4.6-3.2 [facility] Comment on above: Order Comment: Speci men Type: BLOOD SPECIMENOrdering Facility: [facility] Address: [address] [place] [address] Result Comment: The Coagulation Index, a secondary parameter, is labeled by the optical effects camera operator as for research use only and is used per the optical effects camera operator's instructions. Its performance characteristics were determined by [facility]'s [place] Pathology and Laboratory [facility] [place] in a manner consistent with CLIA requirements. This test has not been cleared by the U.S. Food and Drug Administration. Performed By: #### T EGPNP ####[facility] LABCLIA [id number] [place] [address] [place] Maximum clot firmness TEG (Bld) [Length] 54.1 mm Normal 51.0-75.0 [facility] Comment on above: Order Comment: Speci men Type: BLOOD SPECIMENOrdering Facility: [facility] Address: [address] [place] [address] Performed By: #### T EGPNP ####[facility] LABCLIA [id number] [place] [address] [place] Thromboelastography after addtion of heparinase panel (Bld) Normal [facility] Comment on above: Order Comment: Speci men Type: BLOOD SPECIMENOrdering Facility: [facility] Address: [address] [place] [address] Result Comment: A th romboelastograph (TEG) study [...] timely manner. Performed By: #### T EGPNP ####[facility] LABCLIA [id number] [place] [address] [place] TYPE + SCREENon 06-18-2024 ABO A Normal [facility] Comment on above: Order Comment: Speci men Type: BLOOD SPECIMENOrdering Facility: [facility] Address: [address] [place] [address] Performed By: #### T SCR ####[facility] BLOOD BANKCLIA [id number] [address] [place] HISTORICAL AB SCR STATUS Negative Normal [facility] Comment on above: Order Comment: Speci men Type: BLOOD SPECIMENOrdering Facility: [facility] Address: [address] [place] [address] Performed By: #### T SCR ####[facility] BANKCLIA [id number] [place] [address] [place] Rh Nom (Bld) Positive Normal [facility] Comment on above: Order Comment: Speci men Type: BLOOD SPECIMENOrdering Facility: [facility] Address: [address] [place] [address] Performed By: #### T SCR ####[facility] BANKCLIA [id number] [place] [address] [place] TYPE AND SCREEN EXPIRATION 06/21/2024 23:59 Normal [facility] Comment on above: Order Comment: Speci men Type: BLOOD SPECIMENOrdering Facility: [facility] Address: [address] [place] [address] Performed By: #### T SCR ####[facility] BANKCLIA [id number] [place] [address] [place] XR CHEST 1V FRONTAL PORTon 0 06-18-2024 XR CHEST 1V FRONTAL PORT Normal [facility] XR CHEST 2V FRONTAL/LATon XR CHEST 2V FRONTAL/LAT Normal [facility] aPTT PPPon 06-18-2024 aPTT Coag (PPP) [Time] 42.2 s High 23.0-32.4 [facility] Comment on above: Order Comment: Speci men Type: BLOOD SPECIMENOrdering Facility: [facility] Address: [address] [place] [address] Performed By: #### 3 255-7, 15517-9, 53786-8 ####[facility] LABCLIA [id number] [address] [place] aPTT Coag (PPP) [Time] 31.6 s Normal 23.0-32.4 [facility] Comment on above: Order Comment: Speci men Type: BLOOD SPECIMENOrdering Facility: [facility] Address: [address] [place] [address] Performed By: #### 3 255-7, 32308-8, 16047-2 ####[facility] LABIA [id number] [place] [id number] [place] Basic metabolic 2000 panelon 06-17-2024 Anion gap [Moles/Vol] 10 mmol/L Normal 8-15 [facility] Comment on above: Order Comment: Speci men Type: BLOOD SPECIMENOrdering Facility: [facility] Address: [address] [place] [address] Performed By: #### 1 9123-9, 2777-1, 83249-8 ####[facility] LABIA [id number] [place] [address] [place] Calcium [Mass/Vol] 9.3 mg/dL Normal 8.5-10.2 [facility] Comment on above: Order Comment: Speci men Type: BLOOD SPECIMENOrdering Facility: [facility] Address: [address] [place] [address] Performed By: #### 1 9123-9, 2777-1, 18488-8 ####[facility] LABIA [id number] [place] [address] [place] Chloride [Moles/Vol] 103 mmol/L Normal 98-107 [facility] Comment on above: Order Comment: Speci men Type: BLOOD SPECIMENOrdering Facility: [facility] Address: [address] [place] [address] Performed By: #### 1 9123-9, 2777-1, 46521-8 ####[facility] LABIA [id number] [place] [address] [place] CO2 [Moles/Vol] 21 mmol/L Low 22-30 [facility] Comment on above: Order Comment: Speci men Type: BLOOD SPECIMENOrdering Facility: [facility] Address: [address] [place] [address] Performed By: #### 1 9123-9, 2777-1, 85886-2 ####[facility] LABIA [id number] [place] [id number] [place] Creatinine [Mass/Vol] 1.51 mg/dL High 0.73-1.22 [facility] Comment on above: Order Comment: Bobby villalpando Type: BLOOD SPECIMENOrdering Facility: [facility] Address: [address] [place] [address] Performed By: #### 1 9123-9, 2777-, 63253-9 ####[facility] LABIA [id number] [place] [address] [place] Creatinine and Glomerular filtration rate.predicted panel (S/P/Bld) 48 mL/min/1.73m??? Low >=60 [facility] Comment on above: Order Comment: Bobby villalpando Type: BLOOD SPECIMENOrdering Facility: [facility] Address: [address] [place] [address] Result Comment: Annalisa mated Glomerular Filtration Rate [...] GFR. Performed By: #### 1 9123-9, 2777-, 75172-4 ####[facility] LABIA [id number] [place] [id number] [place] Glucose [Mass/Vol] 101 mg/dL High 74-99 [facility] Comment on above: Order Comment: Bobby villalpando Type: BLOOD SPECIMENOrdering Facility: [facility] Address: [address] [place] [address] Result Comment: The [place] [employer] (ADA) provides guidance for cutoff [...] Standards of Medical Care in Diabetes 2016, [place] [employer]. Diabetes Care. 2016.39(Suppl 1). Performed By: #### 1 9123-9, 2777, 89283-5 ####[facility] LABCLIA [id number] [address] [address] [place] Potassium [Moles/Vol] 4.6 mmol/L Normal 3.7-5.1 [facility] Comment on above: Order Comment: Chandanai men Type: BLOOD SPECIMENOrdering Facility: [facility] Address: [address] [place] [address] Performed By: #### 1 9123-9, 27705-11, 21202-5 ####[facility] LABIA [id number] [place] [address] [place] Sodium [Moles/Vol] 134 mmol/L Low 136-144 [facility] Comment on above: Order Comment: Chanadnai kwasi Type: BLOOD SPECIMENOrdering Facility: [facility] Address: [address] [place], [place] [address] Performed By: #### 1 9123-9, 27705-11, 04849-4 ####[facility] LABIA [id number] [place] [id number] [place] Urea nitrogen [Mass/Vol] 30 mg/dL High 9-24 [facility] Comment on above: Order Comment: Chandanai men Type: BLOOD SPECIMENOrdering Facility: [facility] Address: [address] [place] [address] Performed By: #### 1 9123-9, 2777-, 14761-7 ####[facility] LABCLIA [id number] [place] [address] [place] CBC panel Auto (Bld)on 06-17 Erythrocyte distribution width (RBC) [Ratio] 14.2 % Normal 11.5-15.0 [facility] Comment on above: Order Comment: Speci men Type: BLOOD SPECIMENOrdering Facility: [facility] Address: [address] [place] [address] Performed By: #### 5 8410-2 ####[facility] LABIA [id number] [address] [place] Hematocrit (Bld) [Volume fraction] 45.1 % Normal 39.0-51.0 [facility] Comment on above: Order Comment: Speci men Type: BLOOD SPECIMENOrdering Facility: [facility] Address: [address] [place] [address] Performed By: #### 5 8410-2 ####[facility] LABIA [id number] [address] [place] Hemoglobin (Bld) [Mass/Vol] 15.0 g/dL Normal 13.0-17.0 [facility] Comment on above: Order Comment: Speci men Type: BLOOD SPECIMENOrdering Facility: [facility] Address: [address] [place] [address] Performed By: #### 5 8410-2 ####[facility] LABIA [id number] [place] [address] [place] MCH (RBC) [Entitic mass] 29.6 pg Normal 26.0-34.0 [facility] Comment on above: Order Comment: Speci men Type: BLOOD SPECIMENOrdering Facility: [facility] Address: [address] [place] [address] Performed By: #### 5 8410-2 ####[facility] LABCLIA [id number] [place] [address] [place] MCHC (RBC) [Mass/Vol] 33.3 g/dL Normal 30.5-36.0 [facility] Comment on above: Order Comment: Speci men Type: BLOOD SPECIMENOrdering Facility: [facility] Address: [address] [place] [address] Performed By: #### 5 8410-2 ####[facility] LABIA [id number] [place] [address] [place] MCV (RBC) [Entitic vol] 89.1 fL Normal 80.0-100.0 [facility] Comment on above: Order Comment: Speci men Type: BLOOD SPECIMENOrdering Facility: [facility] Address: [address] [place] [address] Performed By: #### 5 8410-2 ####[facility] LABIA [id number] [place] [address] [place] Nucleated RBC (Bld) [#/Vol] 10*3/uL Normal <0.01 [facility] Comment on above: Order Comment: Speci men Type: BLOOD SPECIMENOrdering Facility: [facility] Address: [address] [place] [address] Performed By: #### 5 8410-2 ####[facility] LABIA [id number] [place] [address] [place] Platelet mean volume (Bld) [Entitic vol] 10.1 fL Normal 9.0-12.7 [facility] Comment on above: Order Comment: Speci men Type: BLOOD SPECIMENOrdering Facility: [facility] Address: [address] [place] [address] Performed By: #### 5 8410-2 ####[facility] LABIA [id number] [place] [address] [place] Platelets (Bld) [#/Vol] 152 10*3/uL Normal 150-400 [facility] Comment on above: Order Comment: Speci men Type: BLOOD SPECIMENOrdering Facility: [facility] Address: [address] [place], [place] [address] Performed By: #### 5 8410-2 ####[facility] LABCLIA [id number] [place] [address] [place] RBC (Bld) [#/Vol] 5.06 10*6/uL Normal 4.20-6.00 [facility] Comment on above: Order Comment: Speci men Type: BLOOD SPECIMENOrdering Facility: [facility] Address: [address] [place] [address] Performed By: #### 5 8410-2 ####[facility] LABIA [id number] [place] [address] [place] WBC (Bld) [#/Vol] 7.75 10*3/uL Normal 3.70-11.00 [facility] Comment on above: Order Comment: Speci men Type: BLOOD SPECIMENOrdering Facility: [facility] Address: [address] [place] [address] Performed By: #### 5 8410-2 ####[facility] LABIA [id number] [place] [address] [place] CONSULT PROGon 06-17-2024 CONSULT PROG Normal [facility] Magnesium SerPl-mCncon 06-17 Magnesium [Mass/Vol] 2.3 mg/dL Normal 1.7-2.3 [facility] Comment on above: Order Comment: Speci men Type: BLOOD SPECIMENOrdering Facility: [facility] Address: [address] [place] [address] Performed By: #### 1 9123-9, 2777-1, 33037-0 ####[facility] LABIA [id number] [place] [address] [place] OUTSIDE SURG PATH SLIDE REVI EWon 06-17-2024 ADDENDUM 1: Normal [facility] Comment on above: Order Comment: Speci men Type: FORMALIN-FIXED PARAFFIN-EMBEDDED TISSUE SPECIMENOrdering Facility: AP Outside Review Address: , , Result Comment: Part C of this case has been reviewed by Dr. Garrett, a member of the [facility], who agrees with this assessment.Addendum electronically signed by Charlette Cordero MD on 06/23/2024 at 1:44 PM Performed By: #### L [id number] ####[facility] LABCLIA [id number] [address] [address] [place] CASE REPORT Normal [facility] Comment on above: Order Comment: Speci men Type: FORMALIN-FIXED PARAFFIN-EMBEDDED TISSUE SPECIMENOrdering Facility: AP Outside Review Address: , , Result Comment: [facility] Pathology Report Case: [id number] Provider: Micha Avina MD Collected: 06/17/2024 02:47 PMOrdering Location: [facility] Received: 06/17/2024 02:47 PM [facility] LaboratoryPathologist: Charlette Cordero MDSpecimen: Slide(s), 9 SLIDES [id number] Performed By: #### L [id number] ####[facility] LABCLIA [id number] [address] [place] [address] [facility] FINAL DIAGNOSIS Normal [facility] Comment on above: Order Comment: Speci men Type: FORMALIN-FIXED PARAFFIN-EMBEDDED TISSUE SPECIMENOrdering Facility: AP Outside Review Address: , , Result Comment: [facility], [place], [place]; [id number] (06/05/2024)1. Stomach, biopsy (A): - Gastric oxyntic and antral mucosa with mild reactive epithelial changes and focal mild chronic inflammation.- No definitive morphologic evidence of Helicobacter pylori organisms.2. Colon, transverse, polyp, biopsy (B): - Hyperplastic polyp.3. Rectum, mass, biopsy (C): - Invasive moderately differentiated adenocarcinoma. Performed By: #### L [id number] ####[facility] LABCLIA [id number] [address] [address] [place] FINAL PERFORMING LAB Normal [facility] Comment on above: Order Comment: Speci men Type: FORMALIN-FIXED PARAFFIN-EMBEDDED TISSUE SPECIMENOrdering Facility: AP Outside Review Address: , , Result Comment: Diag nostic interpretation performed at [facility], [address] [place] [address] CLIA# [id number] Director: Jeffrey Tolentino M.D. Performed By: #### L [id number] ####[facility] LABCLIA [id number] [place] [id number] [place] PTT, ANTICOAGULANT THERAPYon 06-17-2024 aPTT Coag (PPP) [Time] 63.6 s High 23.0-32.4 [facility] Comment on above: Order Comment: Speci men Type: BLOOD SPECIMENOrdering Facility: [facility] Address: [address] [place] [address] Performed By: #### P TTAC ####[facility] LABCLIA [id number] [place] [address] [place] Phosphate SerPl-mCncon 06-17 Phosphate [Mass/Vol] 4.7 mg/dL Normal 2.7-4.8 [facility] Comment on above: Order Comment: Speci men Type: BLOOD SPECIMENOrdering Facility: [facility] Address: [address] [place] [address] Performed By: #### 1 9123-9, 2777-1, 23914-1 ####[facility] LABCLIA [id number] [place] [id number] [place] Basic metabolic 2000 panelon 06-16-2024 Anion gap [Moles/Vol] 11 mmol/L Normal 8-15 [facility] Comment on above: Order Comment: Speci men Type: BLOOD SPECIMENOrdering Facility: [facility] Address: [address] [place] [address] Performed By: #### 2 4321-2, 98912-6, 3016-3, 01567-2, 2777-1 ####[facility] LABCLIA [id number] [address] [address] [place] Calcium [Mass/Vol] 9.2 mg/dL Normal 8.5-10.2 [facility] Comment on above: Order Comment: Speci men Type: BLOOD SPECIMENOrdering Facility: [facility] Address: [address] [place] [address] Performed By: #### 2 4321-2, 99961-4, 6-3, 07868-6, 2777-1 ####[facility] LABCLIA [id number] [place] [id number] [place] Chloride [Moles/Vol] 103 mmol/L Normal 98-107 [facility] Comment on above: Order Comment: Speci men Type: BLOOD SPECIMENOrdering Facility: [facility] Address: [address] [place] [address] Performed By: #### 2 4321-2, 19614-4, 6-3, 93482-7, 2777-1 ####[facility] LABIA [id number] [place] [id number] [place] CO2 [Moles/Vol] 21 mmol/L Low 22-30 [facility] Comment on above: Order Comment: Speci men Type: BLOOD SPECIMENOrdering Facility: [facility] Address: [address] [place], [place] [address] Performed By: #### 2 4321-2, 01421-7, 6-3, 27550-6, 2777-1 ####[facility] LABCLIA [id number] [place] [address] [place] Creatinine [Mass/Vol] 1.62 mg/dL High 0.73-1.22 [facility] Comment on above: Order Comment: Speci men Type: BLOOD SPECIMENOrdering Facility: [facility] Address: [address] [place] [address] Performed By: #### 2 4321-2, 70457-5, 3016-3, 87107-0, 2777-1 ####[facility] [id number] [place] [address] [place] Creatinine and Glomerular filtration rate.predicted panel (S/P/Bld) 44 mL/min/1.73m??? Low >=60 [facility] Comment on above: Order Comment: Bobby villalpando Type: BLOOD SPECIMENOrdering Facility: [facility] Address: [address] [place] [address] Result Comment: Annalisa mated Glomerular Filtration Rate [...] actual GFR. Performed By: #### 2 4321-2, 71499-9, 3016-3, 67201-7, 2777-1 ####[facility] LABIA [id number] [place] [id number] [place] Glucose [Mass/Vol] 94 mg/dL Normal 74-99 [facility] Comment on above: Order Comment: Bobby villalpando Type: BLOOD SPECIMENOrdering Facility: [facility] Address: [address] [place] [address] Result Comment: The [place] Diabetes Association (ADA) provides guidance for cutoff [...] Standards of Medical Care in Diabetes 2016, [place] Diabetes Association. Diabetes Care. 2016.39(Suppl 1). Performed By: #### 2 4321-2, 95395-7, 6-3, 13458-1, 2777-1 ####[facility] LABCLIA [id number] [address] [address] [place] Potassium [Moles/Vol] 4.8 mmol/L Normal 3.7-5.1 [facility] Comment on above: Order Comment: Speci men Type: BLOOD SPECIMENOrdering Facility: [facility] Address: [address] [place], [place] [address] Performed By: #### 2 4321-2, 11987-0, 3015-3, 97902-7, 2777-1 ####[facility] LABCLIA [id number] [place] [address] [place] Sodium [Moles/Vol] 135 mmol/L Low 136-144 [facility] Comment on above: Order Comment: Speci men Type: BLOOD SPECIMENOrdering Facility: [facility] Address: [address] [place] [address] Performed By: #### 2 4321-2, 99292-9, 3015-3, 44113-6, 2777-1 ####[facility] LABIA [id number] [place] [id number] [place] Urea nitrogen [Mass/Vol] 29 mg/dL High 9-24 [facility] Comment on above: Order Comment: Speci men Type: BLOOD SPECIMENOrdering Facility: [facility] Address: [address] [place], [place] [address] Performed By: #### 2 4321-2, 14135-1, 3015-3, 83449-4, 2777-1 ####[facility] LABIA [id number] [address] [address] [place] CBC panel Auto (Bld)on 06-16 Erythrocyte distribution width (RBC) [Ratio] 13.9 % Normal 11.5-15.0 [facility] Comment on above: Order Comment: Speci men Type: BLOOD SPECIMENOrdering Facility: [facility] Address: [address] [place] [address] Performed By: #### 5 5454-3, 24613-9 ####[facility] LABCLIA [id number] [place] [address] [place] Hematocrit (Bld) [Volume fraction] 47.6 % Normal 39.0-51.0 [facility] Comment on above: Order Comment: Speci men Type: BLOOD SPECIMENOrdering Facility: [facility] Address: [address] [place] [address] Performed By: #### 5 5454-3, 42864-8 ####[facility] LABCLIA [id number] [place] [address] [place] Hemoglobin (Bld) [Mass/Vol] 15.2 g/dL Normal 13.0-17.0 [facility] Comment on above: Order Comment: Speci men Type: BLOOD SPECIMENOrdering Facility: [facility] Address: [address] [place] [address] Performed By: #### 5 5454-3, 29490-3 ####[facility] LABCLIA [id number] [place] [address] [place] MCH (RBC) [Entitic mass] 29.3 pg Normal 26.0-34.0 [facility] Comment on above: Order Comment: Speci men Type: BLOOD SPECIMENOrdering Facility: [facility] Address: [address] [place] [address] Performed By: #### 5 5454-3, 01593-9 ####[facility] LABCLIA [id number] [place] [address] [place] MCHC (RBC) [Mass/Vol] 31.9 g/dL Normal 30.5-36.0 [facility] Comment on above: Order Comment: Speci men Type: BLOOD SPECIMENOrdering Facility: [facility] Address: [address] [place] [address] Performed By: #### 5 5454-3, 85217-0 ####[facility] LABIA [id number] [place] [address] [place] MCV (RBC) [Entitic vol] 91.9 fL Normal 80.0-100.0 [facility] Comment on above: Order Comment: Speci men Type: BLOOD SPECIMENOrdering Facility: [facility] Address: [address] [place] [address] Performed By: #### 5 5454-3, 17873-3 ####[facility] [id number] [place] [address] [place] Nucleated RBC (Bld) [#/Vol] 10*3/uL Normal <0.01 [facility] Comment on above: Order Comment: Speci men Type: BLOOD SPECIMENOrdering Facility: [facility] Address: [address] [place] [address] Performed By: #### 5 5454-3, 67178-8 ####[facility] LABIA [id number] [place] [address] [place] Platelet mean volume (Bld) [Entitic vol] 10.8 fL Normal 9.0-12.7 [facility] Comment on above: Order Comment: Speci men Type: BLOOD SPECIMENOrdering Facility: [facility] Address: [address] [place] [address] Performed By: #### 5 5454-3, 34854-2 ####[facility] LABIA [id number] [place] [address] [place] Platelets (Bld) [#/Vol] 165 10*3/uL Normal 150-400 [facility] Comment on above: Order Comment: Speci men Type: BLOOD SPECIMENOrdering Facility: [facility] Address: [address] [place] [address] Performed By: #### 5 5454-3, 22877-5 ####[facility] LABCLIA [id number] [place] [address] [place] RBC (Bld) [#/Vol] 5.18 10*6/uL Normal 4.20-6.00 [facility] Comment on above: Order Comment: Speci men Type: BLOOD SPECIMENOrdering Facility: [facility] Address: [address] [place] [address] Performed By: #### 5 5454-3, 74341-6 ####[facility] LABCLIA [id number] [place] [address] [place] WBC (Bld) [#/Vol] 7.76 10*3/uL Normal 3.70-11.00 [facility] Comment on above: Order Comment: Speci men Type: BLOOD SPECIMENOrdering Facility: [facility] Address: [address] [place] [address] Performed By: #### 5 5454-3, 63611-6 ####[facility] LABIA [id number] [place] [address] [place] CONSULT PROGon 06-16-2024 CONSULT PROG Normal [facility] HbA1c (Bld)on 06-16-2024 Average glucose Estimated from glycated hemoglobin (Bld) [Mass/Vol] 123 mg/dL Normal [facility] Comment on above: Order Comment: Speci men Type: BLOOD SPECIMENOrdering Facility: [facility] Address: [address] [place] [address] Result Comment: eAG: (Estimated average glucose) is a calculated value from HgbA1c and is order entry representative of the average blood glucose level in the last 2-3 month period. Performed By: #### 5 5454-3, 09323-2 ####[facility] LABCLIA [id number] [place] [address] [place] HbA1c (Bld) [Mass fraction] 5.9 % High 4.3-5.6 [facility] Comment on above: Order Comment: Bobby villalpando Type: BLOOD SPECIMENOrdering Facility: [facility] Address: [address] [place] [address] Result Comment: Ampiedad ican Diabetes Association guidelines indicate that patients with HgbA1c in the range 5.7-6.4% are at increased risk for development of diabetes, and intervention by lifestyle modification may be beneficial. HgbA1c greater or equal to 6.5% is considered diagnostic of diabetes. Performed By: #### 5 5454-3, 75431-3 ####[facility] LABCLIA [id number] [place] [address] [place] Lipid 1996 panelon 4 Cholesterol [Mass/Vol] 96 mg/dL Normal <200 [facility] Comment on above: Order Comment: Bobby villalpando Type: BLOOD SPECIMENOrdering Facility: [facility] Address: [address] [place] [address] Result Comment: <200 mg/dL, Desirable 200-239 mg/dL, Borderline high>239 mg/dL, High Performed By: #### 2 4321-2, 26390-0, 3015-3, 57495-0, 2777-1 ####[facility] LABCLIA [id number] [place] [address] [place] Cholesterol in HDL [Mass/Vol] 39 mg/dL Low >39 [facility] Comment on above: Order Comment: Bobby villalpando Type: BLOOD SPECIMENOrdering Facility: [facility] Address: [address] [place] [address] Result Comment: 40-5 9 mg/dL, Acceptable>59 mg/dL, High: Negative risk factor for coronary heart disease<40 mg/dL, Low: Positive risk factor for coronary heart disease Performed By: #### 2 4321-2, 00323-8, 6-3, 94639-1, 2777-1 ####[facility] LABCLIA [id number] [place] [id number] [place] Cholesterol in LDL [Mass/Vol] 40 mg/dL Normal <100 [facility] Comment on above: Order Comment: Speci men Type: BLOOD SPECIMENOrdering Facility: [facility] Address: [address] [place] [address] Result Comment: <100 mg/dL, Optimal 100-129 mg/dL, Near optimal/above optimal 130-159 mg/dL, Borderline high 160-189 mg/dL, High>189 mg/dL, Very highSecondary prevention optimal LDL Cholesterol levels are recommended to be < 70 mg/dL Performed By: #### 2 4321-2, 96565-9, 6-3, 57814-8, 7-1 ####[facility] LABCLIA [id number] [address] [place] Cholesterol in LDL/Cholesterol in HDL [Mass ratio] 1.03 {ratio} Normal <2.54 [facility] Comment on above: Order Comment: Chandanai men Type: BLOOD SPECIMENOrdering Facility: [facility] Address: [address] [place] [address] Result Comment: Refe rence:1. National Cholesterol Education Program ATP III Guideline At-A-Glance Quick Desk Reference: National Heart, Lung, and Blood [place]. National Institutes of Health. 2001: NIH Publication No. 01-3305.2. An International Atherosclerosis Society position paper: global recommendations for the management of dyslipidemia: executive summary, Atherosclerosis. 2014: 232(2):410-413. Performed By: #### 2 4321-2, 13613-2, 3015-3, 71098-4, 2776- ####[facility] LABCLIA [id number] [place] [id number] [place] Cholesterol in VLDL [Mass/Vol] 17 mg/dL Normal <30 [facility] Comment on above: Order Comment: Bobby men Type: BLOOD SPECIMENOrdering Facility: [facility] Address: [address] [place] [address] Performed By: #### 2 4321-2, 09641-8, 3016-3, 88714-7, 2777-1 ####[facility] LABCLIA [id number] [place] [address] [place] Cholesterol non HDL [Mass/Vol] 57 mg/dL Normal <130 [facility] Comment on above: Order Comment: Speci men Type: BLOOD SPECIMENOrdering Facility: [facility] Address: [address] [place] [address] Result Comment: <130 mg/dL, Optimal 130-159 mg/dL, Near optimal/above optimal 160-189 mg/dL, Borderline high 190-219 mg/dL, High>219 mg/dL, Very highSecondary prevention optimal non HDL Cholesterol levels are recommended to be <100 mg/dL Performed By: #### 2 1-2, , 3, 96715-0, 2777-1 ####[facility] LABCLIA [id number] [place] [address] [place] Cholesterol.total/Ch olesterol in HDL [Mass ratio] 2.46 {ratio} Normal <5.10 [facility] Comment on above: Order Comment: Speci men Type: BLOOD SPECIMENOrdering Facility: [facility] Address: [address] [place] [address] Performed By: #### 2 4321-2, , 3, 25699-9, 2777-1 ####[facility] LABCLIA [id number] [place] [address] [place] FASTING TIME Unknown Normal [facility] Comment on above: Order Comment: Speci men Type: BLOOD SPECIMENOrdering Facility: [facility] Address: [address] [place] [address] Performed By: #### 2 4321-2, 32377-7, 3, 68045-1, 2777-1 ####[facility] LABCLIA [id number] [place] [address] [place] Triglyceride [Mass/Vol] 85 mg/dL Normal <150 [facility] Comment on above: Order Comment: Speci men Type: BLOOD SPECIMENOrdering Facility: [facility] Address: [address] [place] [address] Result Comment: <150 mg/dL, Normal 150-199 mg/dL, Borderline high 200-499 mg/dL, High>499 mg/dL, Very high Performed By: #### 2 4321-2, 01616-4, 3016-3, 07951-2, 2777-1 ####[facility] LABIA [id number] [place] [address] [place] Magnesium SerPl-ncon 06-16 Magnesium [Mass/Vol] 2.1 mg/dL Normal 1.7-2.3 [facility] Comment on above: Order Comment: Speci men Type: BLOOD SPECIMENOrdering Facility: [facility] Address: [address] [place] [address] Performed By: #### 2 4321-2, 12609-6, 6-3, 69644-9, 2777-1 ####[facility] LABIA [id number] [place] [address] [place] PTT, ANTICOAGULANT THERAPYon 06-16-2024 aPTT Coag (PPP) [Time] 64.6 s High 23.0-32.4 [facility] Comment on above: Order Comment: Speci men Type: BLOOD SPECIMENOrdering Facility: [facility] Address: [address] [place] [address] Performed By: #### P TTAC ####[facility] LABIA [id number] [place] [address] [place] Phosphate SerPl-mCncon 06-16 Phosphate [Mass/Vol] 4.7 mg/dL Normal 2.7-4.8 [facility] Comment on above: Order Comment: Speci men Type: BLOOD SPECIMENOrdering Facility: [facility] Address: [address] [place] [address] Performed By: #### 2 4321-2, 90988-4, 3016-3, 07849-9, 2777-1 ####[facility] LABCLIA [id number] [place] [address] [place] TSH SerPl-aCncon 06-16-2024 TSH Qn 2.830 m[IU]/L Normal 0.270-4.200 [facility] Comment on above: Order Comment: Speci men Type: BLOOD SPECIMENOrdering Facility: [facility] Address: [address] [place] [address] Performed By: #### 2 4321-2, 53434-5, 3015-3, 38903-0, 2777-1 ####[facility] LABCLIA [id number] [place] [address] [place] US CAROTID ARTERIES WING VAS LABon 06-16-2024 US CAROTID ARTERIES WING VAS LAB Normal [facility] US LEG VEIN MAP WING VAS LABo n 06-16-2024 US LEG VEIN MAP WING VAS LAB Normal [facility] US MAMMARY ARTERY WING VAS LA Bon 06-16-2024 US MAMMARY ARTERY WING VAS LAB Normal [facility] US RADIAL ARTERY MAP WING VAS LABon 06-16-2024 US RADIAL ARTERY MAP WING VAS LAB Normal [facility] Basic metabolic 2000 panelon 06-15-2024 Anion gap [Moles/Vol] 10 mmol/L Normal 8-15 [facility] Comment on above: Order Comment: Speci men Type: BLOOD SPECIMENOrdering Facility: [facility] Address: [address] [place] [id number] Performed By: #### 1 9123-9, 2777-1, 66717-5 ####[facility] LABIA [id number] [place] [address] [place] Calcium [Mass/Vol] 9.1 mg/dL Normal 8.5-10.2 [facility] Comment on above: Order Comment: Speci men Type: BLOOD SPECIMENOrdering Facility: [facility] Address: [address] [place] [address] Performed By: #### 1 9123-9, 2777-1, 75089-8 ####[facility] LABCLIA [id number] [place] [address] [place] Chloride [Moles/Vol] 102 mmol/L Normal 98-107 [facility] Comment on above: Order Comment: Speci men Type: BLOOD SPECIMENOrdering Facility: [facility] Address: [address] [place] [address] Performed By: #### 1 9123-9, 2777-1, 40687-0 ####[facility] LABCLIA [id number] [place] [address] [place] CO2 [Moles/Vol] 23 mmol/L Normal 22-30 [facility] Comment on above: Order Comment: Speci men Type: BLOOD SPECIMENOrdering Facility: [facility] Address: [address] [place] [address] Performed By: #### 1 9123-9, 2777-1, 80931-1 ####[facility] LABIA [id number] [place] [address] [place] Creatinine [Mass/Vol] 1.29 mg/dL High 0.73-1.22 [facility] Comment on above: Order Comment: Speci men Type: BLOOD SPECIMENOrdering Facility: [facility] Address: [address] [place] [address] Performed By: #### 1 9123-9, 2777-1, 35292-1 ####[facility] LABIA [id number] [place] [address] [place] Creatinine and Glomerular filtration rate.predicted panel (S/P/Bld) 57 mL/min/1.73m??? Low >=60 [facility] Comment on above: Order Comment: Speci men Type: BLOOD SPECIMENOrdering Facility: [facility] Address: [address] [place] [place] [address] Result Comment: Annalisa mated Glomerular Filtration Rate [...] GFR. Performed By: #### 1 9123-9, 2777-1, 51207-9 ####[facility] LABCLIA [id number] [place] [id number] [place] Glucose [Mass/Vol] 94 mg/dL Normal 74-99 [facility] Comment on above: Order Comment: Bobby villalpando Type: BLOOD SPECIMENOrdering Facility: [facility] Address: [address] [place] [address] Result Comment: The [place] [employer] Association (ADA) provides guidance for cutoff [...] Standards of Medical Care in Diabetes 2016, [place] [employer]. Diabetes Care. 2016.39(Suppl 1). Performed By: #### 1 9123-9, 2777-, 94673-9 ####[facility] LABIA [id number] [place] [id number] [place] Potassium [Moles/Vol] 4.5 mmol/L Normal 3.7-5.1 [facility] Comment on above: Order Comment: Bobby villalpando Type: BLOOD SPECIMENOrdering Facility: [facility] Address: [address] [place] [address] Performed By: #### 1 9123-9, 2777-1, 88049-1 ####[facility] LABCLIA [id number] [address] [address] [place] Sodium [Moles/Vol] 135 mmol/L Low 136-144 [facility] Comment on above: Order Comment: Speci men Type: BLOOD SPECIMENOrdering Facility: [facility] Address: [address] [place] [address] Performed By: #### 1 9123-9, 2777-, 82063-7 ####[facility] LABIA [id number] [place] [address] [place] Urea nitrogen [Mass/Vol] 25 mg/dL High 9-24 [facility] Comment on above: Order Comment: Speci men Type: BLOOD SPECIMENOrdering Facility: [facility] Address: [address] [place] [address] Performed By: #### 1 9123-9, 2777, 79013-3 ####[facility] LABIA [id number] [place] [id number] [place] CASE MANAGEMon 06-15-2024 CASE MANAGEM Normal [facility] CBC panel Auto (Bld)on 06-15 Erythrocyte distribution width (RBC) [Ratio] 13.9 % Normal 11.5-15.0 [facility] Comment on above: Order Comment: Speci men Type: BLOOD SPECIMENOrdering Facility: [facility] Address: [address] [place] [address] Performed By: #### 5 8410-2 ####[facility] LABIA [id number] [place] [id number] [place] Hematocrit (Bld) [Volume fraction] 47.3 % Normal 39.0-51.0 [facility] Comment on above: Order Comment: Speci men Type: BLOOD SPECIMENOrdering Facility: [facility] Address: [address] [place] [address] Performed By: #### 5 8410-2 ####[facility] LABIA [id number] [place] [address] [place] Hemoglobin (Bld) [Mass/Vol] 15.4 g/dL Normal 13.0-17.0 [facility] Comment on above: Order Comment: Speci men Type: BLOOD SPECIMENOrdering Facility: [facility] Address: [address] [place] [address] Performed By: #### 5 8410-2 ####[facility] LABIA [id number] [place] [address] [place] MCH (RBC) [Entitic mass] 29.6 pg Normal 26.0-34.0 [facility] Comment on above: Order Comment: Speci men Type: BLOOD SPECIMENOrdering Facility: [facility] Address: [address] [place] [address] Performed By: #### 5 8410-2 ####[facility] [id number] [place] [address] [place] MCHC (RBC) [Mass/Vol] 32.6 g/dL Normal 30.5-36.0 [facility] Comment on above: Order Comment: Speci men Type: BLOOD SPECIMENOrdering Facility: [facility] Address: [address] [place] [address] Performed By: #### 5 8410-2 ####[facility] [id number] [place] [address] [place] MCV (RBC) [Entitic vol] 90.8 fL Normal 80.0-100.0 [facility] Comment on above: Order Comment: Speci men Type: BLOOD SPECIMENOrdering Facility: [facility] Address: [address] [place] [address] Performed By: #### 5 8410-2 ####[facility] [id number] [place] [address] [place] Nucleated RBC (Bld) [#/Vol] 10*3/uL Normal <0.01 [facility] Comment on above: Order Comment: Speci men Type: BLOOD SPECIMENOrdering Facility: [facility] Address: [address] [place] [address] Performed By: #### 5 8410-2 ####[facility] LABCLIA [id number] [place] [address] [place] Platelet mean volume (Bld) [Entitic vol] 10.4 fL Normal 9.0-12.7 [facility] Comment on above: Order Comment: Speci men Type: BLOOD SPECIMENOrdering Facility: [facility] Address: [address] [place] [address] Performed By: #### 5 8410-2 ####[facility] LABCLIA [id number] [place] [address] [place] Platelets (Bld) [#/Vol] 161 10*3/uL Normal 150-400 [facility] Comment on above: Order Comment: Speci men Type: BLOOD SPECIMENOrdering Facility: [facility] Address: [address] [place] [address] Performed By: #### 5 8410-2 ####[facility] LABIA [id number] [place] [address] [place] RBC (Bld) [#/Vol] 5.21 10*6/uL Normal 4.20-6.00 [facility] Comment on above: Order Comment: Speci men Type: BLOOD SPECIMENOrdering Facility: [facility] Address: [address] [place] [address] Performed By: #### 5 8410-2 ####[facility] LABCLIA [id number] [place] [address] [place] WBC (Bld) [#/Vol] 7.84 10*3/uL Normal 3.70-11.00 [facility] Comment on above: Order Comment: Speci men Type: BLOOD SPECIMENOrdering Facility: [facility] Address: [address] [place] [address] Performed By: #### 5 8410-2 ####[facility] LABCLIA [id number] [place] [address] [place] CNCOon 06-15-2024 CNCO Letter Text Normal [facility] CONSULT PROGon 06-15-2024 CONSULT PROG Normal [facility] ECG COMPLETEon 06-15-2024 ECG COMPLETE Normal [facility] Magnesium SerPl-mCncon 06-15 Magnesium [Mass/Vol] 2.1 mg/dL Normal 1.7-2.3 [facility] Comment on above: Order Comment: Speci men Type: BLOOD SPECIMENOrdering Facility: [facility] Address: [address] [place] [address] Performed By: #### 1 9123-9, 2777-1, 73519-8 ####[facility] LABCLIA [id number] [place] [address] [place] PTT, ANTICOAGULANT THERAPYon 06-15-2024 aPTT Coag (PPP) [Time] 57.8 s High 23.0-32.4 [facility] Comment on above: Order Comment: Speci men Type: BLOOD SPECIMENOrdering Facility: [facility] Address: [address] [place] [address] Performed By: #### P TTAC ####[facility] LABIA [id number] [place] [address] [place] aPTT Coag (PPP) [Time] 54.9 s High 23.0-32.4 [facility] Comment on above: Order Comment: Speci men Type: BLOOD SPECIMENOrdering Facility: [facility] Address: [address] [place] [address] Performed By: #### P TTAC ####[facility] LABCLIA [id number] [place] [address] [place] aPTT Coag (PPP) [Time] 43.8 s High 23.0-32.4 [facility] Comment on above: Order Comment: Speci men Type: BLOOD SPECIMENOrdering Facility: [facility] Address: [address] [place] [address] Performed By: #### P TTAC ####[facility] LABCLIA [id number] [place] [address] [place] Phosphate SerPl-mCncon 06-15 Phosphate [Mass/Vol] 4.3 mg/dL Normal 2.7-4.8 [facility] Comment on above: Order Comment: Speci men Type: BLOOD SPECIMENOrdering Facility: [facility] Address: [address] [place] [address] Performed By: #### 1 9123-9, 2777-1, 71887-3 ####[facility] LABCLIA [id number] [place] [address] [place] Basic metabolic 2000 panelon 06-14-2024 Anion gap [Moles/Vol] 11 mmol/L Normal 8-15 [facility] Comment on above: Order Comment: Speci men Type: BLOOD SPECIMENOrdering Facility: [facility] Address: [address] [place] [address] Performed By: #### 2 4321-2, 55723-8, 2777-1 ####[facility] LABCLIA [id number] [place] [address] [place] Calcium [Mass/Vol] 9.2 mg/dL Normal 8.5-10.2 [facility] Comment on above: Order Comment: Speci men Type: BLOOD SPECIMENOrdering Facility: [facility] Address: [address] [place] [address] Performed By: #### 2 4321-2, 51026-0, 2777-1 ####[facility] LABCLIA [id number] [place] [address] [place] Chloride [Moles/Vol] 102 mmol/L Normal 98-107 [facility] Comment on above: Order Comment: Speci men Type: BLOOD SPECIMENOrdering Facility: [facility] Address: [address] [place] [address] Performed By: #### 2 4321-2, , 2776-11 ####[facility] LABCLIA [id number] [place] [address] [place] CO2 [Moles/Vol] 21 mmol/L Low 22-30 [facility] Comment on above: Order Comment: Speci men Type: BLOOD SPECIMENOrdering Facility: [facility] Address: [address] [place] [address] Performed By: #### 2 4321-2, , 2776-11 ####[facility] LABCLIA [id number] [place] [address] [place] Creatinine [Mass/Vol] 1.41 mg/dL High 0.73-1.22 [facility] Comment on above: Order Comment: Speci men Type: BLOOD SPECIMENOrdering Facility: [facility] Address: [address] [place] [address] Performed By: #### 2 4321-2, , 2776-11 ####[facility] LABCLIA [id number] [place] [address] [place] Creatinine and Glomerular filtration rate.predicted panel (S/P/Bld) 52 mL/min/1.73m??? Low >=60 [facility] Comment on above: Order Comment: Speci men Type: BLOOD SPECIMENOrdering Facility: [facility] Address: [address] [place] [address] Result Comment: Annalisa mated Glomerular Filtration Rate [...] Performed By: #### 2 4321-2, , 2776-11 ####[facility] LABCLIA [id number] [address] [address] [place] Glucose [Mass/Vol] 97 mg/dL Normal 74-99 [facility] Comment on above: Order Comment: Speci men Type: BLOOD SPECIMENOrdering Facility: [facility] Address: [address] [place] [address] Result Comment: The [place] Diabetes [employer] (ADA) provides guidance for cutoff [...] Standards of Medical Care in Diabetes 2016, [place] [employer]. Diabetes Care. 2016.39(Suppl 1). Performed By: #### 2 4321-2, , 2776-11 ####[facility] LABCLIA [id number] [place] [address] [place] Potassium [Moles/Vol] 4.6 mmol/L Normal 3.7-5.1 [facility] Comment on above: Order Comment: Speci men Type: BLOOD SPECIMENOrdering Facility: [facility] Address: [address] [place] [address] Performed By: #### 2 4321-2, , 2776-11 ####[facility] LABCLIA [id number] [facility] [place] [id number] [place] Sodium [Moles/Vol] 134 mmol/L Low 136-144 [facility] Comment on above: Order Comment: Speci men Type: BLOOD SPECIMENOrdering Facility: [facility] Address: [address] [place] [address] Performed By: #### 2 4321-2, , 2776-11 ####[facility] LABCLIA [id number] [place] [address] [place] Urea nitrogen [Mass/Vol] 31 mg/dL High 9-24 [facility] Comment on above: Order Comment: Speci men Type: BLOOD SPECIMENOrdering Facility: [facility] Address: [address] [place] [address] Performed By: #### 2 4321-2, , 2776-11 ####[facility] LABCLIA [id number] [place] [address] [place] CBC panel Auto (Bld)on 06-14 Erythrocyte distribution width (RBC) [Ratio] 14.0 % Normal 11.5-15.0 [facility] Comment on above: Order Comment: Speci men Type: BLOOD SPECIMENOrdering Facility: [facility] Address: [address] [place] [address] Performed By: #### 5 8410-2 ####[facility] LABIA [id number] [place] [address] [place] Hematocrit (Bld) [Volume fraction] 47.4 % Normal 39.0-51.0 [facility] Comment on above: Order Comment: Speci men Type: BLOOD SPECIMENOrdering Facility: [facility] Address: [address] [place] [address] Performed By: #### 5 8410-2 ####[facility] LABIA [id number] [place] [address] [place] Hemoglobin (Bld) [Mass/Vol] 15.4 g/dL Normal 13.0-17.0 [facility] Comment on above: Order Comment: Speci men Type: BLOOD SPECIMENOrdering Facility: [facility] Address: [address] [place] [address] Performed By: #### 5 8410-2 ####[facility] LABIA [id number] [place] [address] [place] MCH (RBC) [Entitic mass] 29.9 pg Normal 26.0-34.0 [facility] Comment on above: Order Comment: Speci men Type: BLOOD SPECIMENOrdering Facility: [facility] Address: [address] [place] [address] Performed By: #### 5 8410-2 ####[facility] LABIA [id number] [place] [address] [place] MCHC (RBC) [Mass/Vol] 32.5 g/dL Normal 30.5-36.0 [facility] Comment on above: Order Comment: Speci men Type: BLOOD SPECIMENOrdering Facility: [facility] Address: [address] [place] [address] Performed By: #### 5 8410-2 ####[facility] LABIA [id number] [place] [address] [place] MCV (RBC) [Entitic vol] 92.0 fL Normal 80.0-100.0 [facility] Comment on above: Order Comment: Speci men Type: BLOOD SPECIMENOrdering Facility: [facility] Address: [address] [place] [address] Performed By: #### 5 8410-2 ####[facility] LABIA [id number] [place] [address] [place] Nucleated RBC (Bld) [#/Vol] 10*3/uL Normal <0.01 [facility] Comment on above: Order Comment: Speci men Type: BLOOD SPECIMENOrdering Facility: [facility] Address: [address] [place] [address] Performed By: #### 5 8410-2 ####[facility] LABCLIA [id number] [place] [address] [place] Platelet mean volume (Bld) [Entitic vol] 10.2 fL Normal 9.0-12.7 [facility] Comment on above: Order Comment: Speci men Type: BLOOD SPECIMENOrdering Facility: [facility] Address: [address] [place] [address] Performed By: #### 5 8410-2 ####[facility] LABIA [id number] [place] [address] [place] Platelets (Bld) [#/Vol] 154 10*3/uL Normal 150-400 [facility] Comment on above: Order Comment: Speci men Type: BLOOD SPECIMENOrdering Facility: [facility] Address: [address] [place] [address] Performed By: #### 5 8410-2 ####[facility] LABIA [id number] [place] [address] [place] RBC (Bld) [#/Vol] 5.15 10*6/uL Normal 4.20-6.00 [facility] Comment on above: Order Comment: Speci men Type: BLOOD SPECIMENOrdering Facility: [facility] Address: [address] [place] [address] Performed By: #### 5 8410-2 ####[facility] LABIA [id number] [place] [address] [place] WBC (Bld) [#/Vol] 8.17 10*3/uL Normal 3.70-11.00 [facility] Comment on above: Order Comment: Speci men Type: BLOOD SPECIMENOrdering Facility: [facility] Address: [address] [place] [address] Performed By: #### 5 8410-2 ####[facility] LABCLIA [id number] [place] [address] [place] CONSULT PROGon 06-14-2024 CONSULT PROG Normal [facility] Magnesium SerPl-mCncon 06-14 Magnesium [Mass/Vol] 2.1 mg/dL Normal 1.7-2.3 [facility] Comment on above: Order Comment: Speci men Type: BLOOD SPECIMENOrdering Facility: [facility] Address: [address] [place] [address] Performed By: #### 2 4321-2, 89665-5, 2777-1 ####[facility] LABCLIA [id number] [place] [address] [place] PTT, ANTICOAGULANT THERAPYon 06-14-2024 aPTT Coag (PPP) [Time] 53.3 s High 23.0-32.4 [facility] Comment on above: Order Comment: Speci men Type: BLOOD SPECIMENOrdering Facility: [facility] Address: [address] [place] [address] Performed By: #### P TTAC ####[facility] LABIA [id number] [place] [address] [place] aPTT Coag (PPP) [Time] 60.8 s High 23.0-32.4 [facility] Comment on above: Order Comment: Speci men Type: BLOOD SPECIMENOrdering Facility: [facility] Address: [address] [place] [address] Performed By: #### P TTAC ####[facility] LABIA [id number] [place] [address] [place] aPTT Coag (PPP) [Time] 80.3 s High 23.0-32.4 [facility] Comment on above: Order Comment: Speci men Type: BLOOD SPECIMENOrdering Facility: [facility] Address: [address] [place] [address] Performed By: #### P TTAC ####[facility] LABIA [id number] [place] [address] [place] Phosphate SerPl-mCncon 06-14 Phosphate [Mass/Vol] 4.4 mg/dL Normal 2.7-4.8 [facility] Comment on above: Order Comment: Speci men Type: BLOOD SPECIMENOrdering Facility: [facility] Address: [address] [place] [address] Performed By: #### 2 4321-2, 43191-6, 2776-11 ####[facility] LABCLIA [id number] [facility] [place] [id number] [place] Basic metabolic 2000 panelon 06-13-2024 Anion gap [Moles/Vol] 10 mmol/L Normal 8-15 [facility] Comment on above: Order Comment: Speci men Type: BLOOD SPECIMENOrdering Facility: [facility] Address: [address] [place] [address] Performed By: #### 2 4321-2, , 2776-11 ####[facility] LABCLIA [id number] [place] [address] [place] Calcium [Mass/Vol] 9.4 mg/dL Normal 8.5-10.2 [facility] Comment on above: Order Comment: Speci men Type: BLOOD SPECIMENOrdering Facility: [facility] Address: [address] [place] [address] Performed By: #### 2 4321-2, , 2776-11 ####[facility] LABCLIA [id number] [place] [id number] [place] Chloride [Moles/Vol] 102 mmol/L Normal 98-107 [facility] Comment on above: Order Comment: Speci men Type: BLOOD SPECIMENOrdering Facility: [facility] Address: [address] [place] [address] Performed By: #### 2 4321-2, , 2776-11 ####[facility] LABCLIA [id number] [facility] [place] [id number] [place] CO2 [Moles/Vol] 24 mmol/L Normal 22-30 [facility] Comment on above: Order Comment: Speci men Type: BLOOD SPECIMENOrdering Facility: [facility] Address: [address] [place] [address] Performed By: #### 2 4321-2, , 2776-11 ####[facility] LABCLIA [id number] [place] [address] [place] Creatinine [Mass/Vol] 1.42 mg/dL High 0.73-1.22 [facility] Comment on above: Order Comment: Speci men Type: BLOOD SPECIMENOrdering Facility: [facility] Address: [address] [place] [address] Performed By: #### 2 4321-2, , 2776-11 ####[facility] LABCLIA [id number] [place] [address] [place] Creatinine and Glomerular filtration rate.predicted panel (S/P/Bld) 51 mL/min/1.73m??? Low >=60 [facility] Comment on above: Order Comment: Chandanai men Type: BLOOD SPECIMENOrdering Facility: [facility] Address: [address] [place] [address] Result Comment: Annalisa mated Glomerular Filtration Rate [...] Performed By: #### 2 4321-2, , 2776-11 ####[facility] LABCLIA [id number] [place] [address] [place] Glucose [Mass/Vol] 90 mg/dL Normal 74-99 [facility] Comment on above: Order Comment: Speci men Type: BLOOD SPECIMENOrdering Facility: [facility] Address: [address] [place] [address] Result Comment: The [place] [employer] (ADA) provides guidance for cutoff [...] Standards of Medical Care in Diabetes 2016, [place] [employer]. Diabetes Care. 2016.39(Suppl 1). Performed By: #### 2 4321-2, , 2776-11 ####[facility] LABCLIA [id number] [place] [address] [place] Potassium [Moles/Vol] 4.6 mmol/L Normal 3.7-5.1 [facility] Comment on above: Order Comment: Speci men Type: BLOOD SPECIMENOrdering Facility: [facility] Address: [address] [place] [address] Performed By: #### 2 432-2, , 2776-11 ####[facility] LABCLIA [id number] [address] [address] [place] Sodium [Moles/Vol] 136 mmol/L Normal 136-144 [facility] Comment on above: Order Comment: Speci men Type: BLOOD SPECIMENOrdering Facility: [facility] Address: [address] [place] [address] Performed By: #### 2 432-2, , 2776-11 ####[facility] LABCLIA [id number] [address] [address] [place] Urea nitrogen [Mass/Vol] 28 mg/dL High 9-24 [facility] Comment on above: Order Comment: Speci men Type: BLOOD SPECIMENOrdering Facility: [facility] Address: [address] [place] [address] Performed By: #### 2 4321-2, 57967-0, 2777-1 ####[facility] LABIA [id number] [place] [address] [place] CBC panel Auto (Bld)on 06-13 Erythrocyte distribution width (RBC) [Ratio] 13.8 % Normal 11.5-15.0 [facility] Comment on above: Order Comment: Speci men Type: BLOOD SPECIMENOrdering Facility: [facility] Address: [address] [place] [address] Performed By: #### 5 8410-2 ####[facility] LABIA [id number] [address] [place] Hematocrit (Bld) [Volume fraction] 49.1 % Normal 39.0-51.0 [facility] Comment on above: Order Comment: Speci men Type: BLOOD SPECIMENOrdering Facility: [facility] Address: [address] [place] [address] Performed By: #### 5 8410-2 ####[facility] LABIA [id number] [address] [place] Hemoglobin (Bld) [Mass/Vol] 15.7 g/dL Normal 13.0-17.0 [facility] Comment on above: Order Comment: Speci men Type: BLOOD SPECIMENOrdering Facility: [facility] Address: [address] [place] [address] Performed By: #### 5 8410-2 ####[facility] LABIA [id number] [place] [address] [place] MCH (RBC) [Entitic mass] 29.4 pg Normal 26.0-34.0 [facility] Comment on above: Order Comment: Speci men Type: BLOOD SPECIMENOrdering Facility: [facility] Address: [address] [place] [address] Performed By: #### 5 8410-2 ####[facility] LABCLIA [id number] [place] [address] [place] MCHC (RBC) [Mass/Vol] 32.0 g/dL Normal 30.5-36.0 [facility] Comment on above: Order Comment: Speci men Type: BLOOD SPECIMENOrdering Facility: [facility] Address: [address] [place] [address] Performed By: #### 5 8410-2 ####[facility] LABCLIA [id number] [place] [address] [place] MCV (RBC) [Entitic vol] 91.9 fL Normal 80.0-100.0 [facility] Comment on above: Order Comment: Speci men Type: BLOOD SPECIMENOrdering Facility: [facility] Address: [address] [place] [address] Performed By: #### 5 8410-2 ####[facility] LABIA [id number] [place] [address] [place] Nucleated RBC (Bld) [#/Vol] 10*3/uL Normal <0.01 [facility] Comment on above: Order Comment: Speci men Type: BLOOD SPECIMENOrdering Facility: [facility] Address: [address] [place] [address] Performed By: #### 5 8410-2 ####[facility] LABIA [id number] [place] [address] [place] Platelet mean volume (Bld) [Entitic vol] 10.5 fL Normal 9.0-12.7 [facility] Comment on above: Order Comment: Speci men Type: BLOOD SPECIMENOrdering Facility: [facility] Address: [address] [place] [address] Performed By: #### 5 8410-2 ####[facility] LABIA [id number] [place] [address] [place] Platelets (Bld) [#/Vol] 160 10*3/uL Normal 150-400 [facility] Comment on above: Order Comment: Speci men Type: BLOOD SPECIMENOrdering Facility: [facility] Address: [address] [place] [address] Performed By: #### 5 8410-2 ####[facility] LABCLIA [id number] [place] [address] [place] RBC (Bld) [#/Vol] 5.34 10*6/uL Normal 4.20-6.00 [facility] Comment on above: Order Comment: Speci men Type: BLOOD SPECIMENOrdering Facility: [facility] Address: [address] [place] [address] Performed By: #### 5 8410-2 ####[facility] LABCLIA [id number] [place] [address] [place] WBC (Bld) [#/Vol] 7.75 10*3/uL Normal 3.70-11.00 [facility] Comment on above: Order Comment: Speci men Type: BLOOD SPECIMENOrdering Facility: [facility] Address: [address] [place] [address] Performed By: #### 5 8410-2 ####[facility] LABIA [id number] [place] [address] [place] CONSULT PROGon 06-13-2024 CONSULT PROG Normal [facility] Magnesium SerPl-mCncon 06-13 Magnesium [Mass/Vol] 2.1 mg/dL Normal 1.7-2.3 [facility] Comment on above: Order Comment: Speci men Type: BLOOD SPECIMENOrdering Facility: [facility] Address: [address] [place] [address] Performed By: #### 2 4321-2, 58740-6, 2777-1 ####[facility] LABCLIA [id number] [place] [address] [place] PTT, ANTICOAGULANT THERAPYon 06-13-2024 aPTT Coag (PPP) [Time] 46.9 s High 23.0-32.4 [facility] Comment on above: Order Comment: Speci men Type: BLOOD SPECIMENOrdering Facility: [facility] Address: [address] [place] [address] Performed By: #### P TTAC ####[facility] LABCLIA [id number] [place] [address] [place] aPTT Coag (PPP) [Time] 72.1 s High 23.0-32.4 [facility] Comment on above: Order Comment: Speci men Type: BLOOD SPECIMENOrdering Facility: [facility] Address: [address] [place] [address] Performed By: #### P TTAC ####[facility] LABCLIA [id number] [place] [address] [place] aPTT Coag (PPP) [Time] 46.6 s High 23.0-32.4 [facility] Comment on above: Order Comment: Speci men Type: BLOOD SPECIMENOrdering Facility: [facility] Address: [address] [place] [address] Performed By: #### P TTAC ####[facility] LABCLIA [id number] [place] [address] [place] PVR ANK PRESS WING VAS LABon 06-13-2024 PVR ANK PRESS WING VAS LAB Normal [facility] Phosphate SerPl-mCncon 06-13 Phosphate [Mass/Vol] 4.1 mg/dL Normal 2.7-4.8 [facility] Comment on above: Order Comment: Speci men Type: BLOOD SPECIMENOrdering Facility: [facility] Address: [address] [place] [address] Performed By: #### 2 4321-2, 67350-6, 2777-1 ####[facility] LABCLIA [id number] [address] [address] [place] Basic metabolic 2000 panelon 06-12-2024 Anion gap [Moles/Vol] 11 mmol/L Normal 8-15 [facility] Comment on above: Order Comment: Speci men Type: BLOOD SPECIMENOrdering Facility: [facility] Address: [address] [place], [place] [address] Performed By: #### 2 4321-2, , 2776-11 ####[facility] LABCLIA [id number] [address] [address] [place] Calcium [Mass/Vol] 9.3 mg/dL Normal 8.5-10.2 [facility] Comment on above: Order Comment: Speci men Type: BLOOD SPECIMENOrdering Facility: [facility] Address: [address] [place] [address] Performed By: #### 2 432-2, , 2776-11 ####[facility] LABIA [id number] [address] [address] [place] Chloride [Moles/Vol] 100 mmol/L Normal 98-107 [facility] Comment on above: Order Comment: Speci men Type: BLOOD SPECIMENOrdering Facility: [facility] Address: [address] [place] [address] Performed By: #### 2 4321-2, , 2776-11 ####[facility] LABCLIA [id number] [address] [address] [place] CO2 [Moles/Vol] 24 mmol/L Normal 22-30 [facility] Comment on above: Order Comment: Speci men Type: BLOOD SPECIMENOrdering Facility: [facility] Address: [address] [place] [address] Performed By: #### 2 4321-2, , 2776- ####[facility] LABCLIA [id number] [address] [address] [place] Creatinine [Mass/Vol] 1.38 mg/dL High 0.73-1.22 [facility] Comment on above: Order Comment: Bobby villalpando Type: BLOOD SPECIMENOrdering Facility: [facility] Address: [address] [place] [address] Performed By: #### 2 4321-2, 88861-3, 2776-11 ####[facility] LABIA [id number] [place] [address] [place] Creatinine and Glomerular filtration rate.predicted panel (S/P/Bld) 53 mL/min/1.73m??? Low >=60 [facility] Comment on above: Order Comment: Bobby villalpando Type: BLOOD SPECIMENOrdering Facility: [facility] Address: [address] [place] [address] Result Comment: Annalisa mated Glomerular Filtration Rate [...] Performed By: #### 2 4321-2, , 2776-11 ####[facility] LABIA [id number] [place] [address] [place] Glucose [Mass/Vol] 94 mg/dL Normal 74-99 [facility] Comment on above: Order Comment: Bobby villalpando Type: BLOOD SPECIMENOrdering Facility: [facility] Address: [address] [place] [address] Result Comment: The [place] [employer] (ADA) provides guidance for cutoff [...] Standards of Medical Care in Diabetes 2016, [place] [employer]. Diabetes Care. 2016.39(Suppl 1). Performed By: #### 2 4321-2, , 2776-11 ####[facility] LABCLIA [id number] [place] [id number] [place] Potassium [Moles/Vol] 4.3 mmol/L Normal 3.7-5.1 [facility] Comment on above: Order Comment: Speci men Type: BLOOD SPECIMENOrdering Facility: [facility] Address: [address] [place] [address] Performed By: #### 2 432-2, , 2776-11 ####[facility] LABCLIA [id number] [place] [address] [place] Sodium [Moles/Vol] 135 mmol/L Low 136-144 [facility] Comment on above: Order Comment: Speci men Type: BLOOD SPECIMENOrdering Facility: [facility] Address: [address] [place] [address] Performed By: #### 2 4320-2, , 2776-11 ####[facility] LABCLIA [id number] [place] [address] [place] Urea nitrogen [Mass/Vol] 20 mg/dL Normal 9-24 [facility] Comment on above: Order Comment: Speci men Type: BLOOD SPECIMENOrdering Facility: [facility] Address: [address] [place] [address] Performed By: #### 2 432-2, , 2776-11 ####[facility] LABCLIA [id number] [address] [address] [place] CASE MGT INIT ASSESon 2023 CASE MGT INIT ASSES Normal [facility] CBC panel Auto (Bld)on 06-12 Erythrocyte distribution width (RBC) [Ratio] 14.0 % Normal 11.5-15.0 [facility] Comment on above: Order Comment: Speci men Type: BLOOD SPECIMENOrdering Facility: [facility] Address: [address] [place] [address] Performed By: #### 5 8410-2 ####[facility] LABCLIA [id number] [place] [address] [place] Hematocrit (Bld) [Volume fraction] 44.3 % Normal 39.0-51.0 [facility] Comment on above: Order Comment: Speci men Type: BLOOD SPECIMENOrdering Facility: [facility] Address: [address] [place] [address] Performed By: #### 5 8410-2 ####[facility] LABCLIA [id number] [place] [address] [place] Hemoglobin (Bld) [Mass/Vol] 14.5 g/dL Normal 13.0-17.0 [facility] Comment on above: Order Comment: Speci men Type: BLOOD SPECIMENOrdering Facility: [facility] Address: [address] [place] [address] Performed By: #### 5 8410-2 ####[facility] LABCLIA [id number] [place] [address] [place] MCH (RBC) [Entitic mass] 29.5 pg Normal 26.0-34.0 [facility] Comment on above: Order Comment: Speci men Type: BLOOD SPECIMENOrdering Facility: [facility] Address: [address] [place] [address] Performed By: #### 5 8410-2 ####[facility] LABCLIA [id number] [place] [address] [place] MCHC (RBC) [Mass/Vol] 32.7 g/dL Normal 30.5-36.0 [facility] Comment on above: Order Comment: Speci men Type: BLOOD SPECIMENOrdering Facility: [facility] Address: [address] [place] [address] Performed By: #### 5 8410-2 ####[facility] LABIA [id number] [place] [address] [place] MCV (RBC) [Entitic vol] 90.0 fL Normal 80.0-100.0 [facility] Comment on above: Order Comment: Speci men Type: BLOOD SPECIMENOrdering Facility: [facility] Address: [address] [place] [address] Performed By: #### 5 8410-2 ####[facility] [id number] [place] [address] [place] Nucleated RBC (Bld) [#/Vol] 10*3/uL Normal <0.01 [facility] Comment on above: Order Comment: Speci men Type: BLOOD SPECIMENOrdering Facility: [facility] Address: [address] [place] [address] Performed By: #### 5 8410-2 ####[facility] [id number] [place] [address] [place] Platelet mean volume (Bld) [Entitic vol] 10.1 fL Normal 9.0-12.7 [facility] Comment on above: Order Comment: Speci men Type: BLOOD SPECIMENOrdering Facility: [facility] Address: [address] [place] [address] Performed By: #### 5 8410-2 ####[facility] LABIA [id number] [place] [address] [place] Platelets (Bld) [#/Vol] 168 10*3/uL Normal 150-400 [facility] Comment on above: Order Comment: Speci men Type: BLOOD SPECIMENOrdering Facility: [facility] Address: [address] [place] [address] Performed By: #### 5 8410-2 ####[facility] LABCLIA [id number] [place] [address] [place] RBC (Bld) [#/Vol] 4.92 10*6/uL Normal 4.20-6.00 [facility] Comment on above: Order Comment: Speci men Type: BLOOD SPECIMENOrdering Facility: [facility] Address: [address] [place] [address] Performed By: #### 5 8410-2 ####[facility] LABIA [id number] [place] [address] [place] WBC (Bld) [#/Vol] 8.88 10*3/uL Normal 3.70-11.00 [facility] Comment on above: Order Comment: Speci men Type: BLOOD SPECIMENOrdering Facility: [facility] Address: [address] [place] [address] Performed By: #### 5 8410-2 ####[facility] LABIA [id number] [place] [address] [place] Erythrocyte distribution width (RBC) [Ratio] 14.3 % Normal 11.5-15.0 [facility] Comment on above: Order Comment: Speci men Type: BLOOD SPECIMENOrdering Facility: [facility] Address: [address] [place] [address] Performed By: #### 5 8410-2 ####[facility] LABIA [id number] [place] [address] [place] Hematocrit (Bld) [Volume fraction] 45.1 % Normal 39.0-51.0 [facility] Comment on above: Order Comment: Speci men Type: BLOOD SPECIMENOrdering Facility: [facility] Address: [address] [place] [address] Performed By: #### 5 8410-2 ####[facility] LABIA [id number] [place] [address] [place] Hemoglobin (Bld) [Mass/Vol] 14.1 g/dL Normal 13.0-17.0 [facility] Comment on above: Order Comment: Speci men Type: BLOOD SPECIMENOrdering Facility: [facility] Address: [address] [place] [address] Performed By: #### 5 8410-2 ####[facility] LABIA [id number] [place] [address] [place] MCH (RBC) [Entitic mass] 28.5 pg Normal 26.0-34.0 [facility] Comment on above: Order Comment: Speci men Type: BLOOD SPECIMENOrdering Facility: [facility] Address: [address] [place] [address] Performed By: #### 5 8410-2 ####[facility] LABIA [id number] [place] [address] [place] MCHC (RBC) [Mass/Vol] 31.3 g/dL Normal 30.5-36.0 [facility] Comment on above: Order Comment: Speci men Type: BLOOD SPECIMENOrdering Facility: [facility] Address: [address] [place] [address] Performed By: #### 5 8410-2 ####[facility] LABIA [id number] [place] [address] [place] MCV (RBC) [Entitic vol] 91.3 fL Normal 80.0-100.0 [facility] Comment on above: Order Comment: Speci men Type: BLOOD SPECIMENOrdering Facility: [facility] Address: [address] [place] [address] Performed By: #### 5 8410-2 ####[facility] LABIA [id number] [place] [address] [place] Nucleated RBC (Bld) [#/Vol] 10*3/uL Normal <0.01 [facility] Comment on above: Order Comment: Speci men Type: BLOOD SPECIMENOrdering Facility: [facility] Address: [address] [place] [address] Performed By: #### 5 8410-2 ####[facility] LABIA [id number] [place] [address] [place] Platelet mean volume (Bld) [Entitic vol] 10.4 fL Normal 9.0-12.7 [facility] Comment on above: Order Comment: Speci men Type: BLOOD SPECIMENOrdering Facility: [facility] Address: [address] [place] [address] Performed By: #### 5 8410-2 ####[facility] LABIA [id number] [place] [address] [place] Platelets (Bld) [#/Vol] 158 10*3/uL Normal 150-400 [facility] Comment on above: Order Comment: Speci men Type: BLOOD SPECIMENOrdering Facility: [facility] Address: [address] [place] [address] Performed By: #### 5 8410-2 ####[facility] LABIA [id number] [place] [address] [place] RBC (Bld) [#/Vol] 4.94 10*6/uL Normal 4.20-6.00 [facility] Comment on above: Order Comment: Speci men Type: BLOOD SPECIMENOrdering Facility: [facility] Address: [address] [place] [address] Performed By: #### 5 8410-2 ####[facility] LABCLIA [id number] [place] [address] [place] WBC (Bld) [#/Vol] 7.08 10*3/uL Normal 3.70-11.00 [facility] Comment on above: Order Comment: Speci men Type: BLOOD SPECIMENOrdering Facility: [facility] Address: [address] [place] [address] Performed By: #### 5 8410-2 ####[facility] LABCLIA [id number] [place] [address] [place] CONFIRM BLOOD TYPEon 024 ABO A Normal [facility] Comment on above: Order Comment: Speci men Type: BLOOD SPECIMENOrdering Facility: [facility] Address: [address] [place] [address] Performed By: #### C ONABO ####[facility] BLOOD BANKCLIA [id number] [place] [address] [place] Rh Nom (Bld) Positive Normal [facility] Comment on above: Order Comment: Speci men Type: BLOOD SPECIMENOrdering Facility: [facility] Address: [address] [place] [address] Performed By: #### C ONABO ####[facility] [id number] [place] [address] [place] CONSULTon 06-12-2024 CONSULT Normal [facility] CONSULT Normal [facility] Magnesium SerPl-mCncon 06-12 Magnesium [Mass/Vol] 2.1 mg/dL Normal 1.7-2.3 [facility] Comment on above: Order Comment: Speci men Type: BLOOD SPECIMENOrdering Facility: [facility] Address: [address] [place] [address] Performed By: #### 2 4321-2, 09237-0, 2777-1 ####[facility] LABCLIA [id number] [place] [address] [place] PT panel Coag (PPP)on 2023 INR Coag (PPP) [Relative time] 1.0 {INR} Normal 0.9-1.3 [facility] Comment on above: Order Comment: Speci men Type: BLOOD SPECIMENOrdering Facility: [facility] Address: [address] [place] [address] Result Comment: Rizwana min K Antagonist (VKA) Therapeutic Range: INR 2 to 3 (Target INR of 2.5)Note: For patients treated with VKA drugs, such as warfarin, the [place] [employer] 2012 Guideline recommends [...] al. Chest 2012, 141:7S-47SNishimura RA, et al. [facility] 2017, 70: 252-289 Performed By: #### 1 4979-9, 06073-1 ####[facility] LABIA [id number] [place] [address] [place] PT Coag (PPP) [Time] 11.0 s Normal 9.7-13.0 [facility] Comment on above: Order Comment: Speci men Type: BLOOD SPECIMENOrdering Facility: [facility] Address: [address] [place] [address] Performed By: #### 1 4979-9, 71848-9 ####[facility] [id number] [place] [address] [place] Phosphate SerPl-mCncon 06-12 Phosphate [Mass/Vol] 4.2 mg/dL Normal 2.7-4.8 [facility] Comment on above: Order Comment: Speci men Type: BLOOD SPECIMENOrdering Facility: [facility] Address: [address] [place] [address] Performed By: #### 2 4321-2, 11395-9, 2777-1 ####[facility] LABIA [id number] [place] [address] [place] STAPHYLOCOCCUS AUREUS AND MR SA SCREEN, PCR, NASALon 06-12-2024 S. aureus and MRSA panel VENESSA+probe (Nose) Not detected Normal Not Detected [facility] Comment on above: Order Comment: Speci men Type: SWABOrdering Facility: [facility] Address: [address] [place] [address] Performed By: #### S APCR ####[facility] LABCLIA [id number] [place] [address] [place] THERAPY NTon 06-12-2024 THERAPY NT Normal [facility] Urinalysis complete panel (U )on 06-12-2024 Bacteria LM.HPF (Urine sed) [#/Area] Negative Normal Negative [facility] Comment on above: Order Comment: Speci men Type: URINE SPECIMENOrdering Facility: [facility] Address: [address] [place] [address] Performed By: #### 2 4356-8 ####[facility] LABCLIA [id number] [place] [address] [place] Bilirubin Ql (U) Negative Normal Negative [facility] Comment on above: Order Comment: Speci men Type: URINE SPECIMENOrdering Facility: [facility] Address: [address] [place] [address] Performed By: #### 2 4356-8 ####[facility] LABCLIA [id number] [place] [address] [place] Clarity (Unsp spec) Clear Normal Clear [facility] Comment on above: Order Comment: Speci men Type: URINE SPECIMENOrdering Facility: [facility] Address: [address] [place] [address] Performed By: #### 2 4356-8 ####[facility] LABCLIA [id number] [place] [address] [place] Color (U) Yellow Normal Yellow [facility] Comment on above: Order Comment: Speci men Type: URINE SPECIMENOrdering Facility: [facility] Address: [address] [place] [address] Performed By: #### 2 4356-8 ####[facility] LABCLIA [id number] [place] [address] [place] Epithelial cells LM.HPF (Urine sed) [#/Area] None Seen Normal [facility] Comment on above: Order Comment: Speci men Type: URINE SPECIMENOrdering Facility: [facility] Address: [address] [place] [address] Performed By: #### 2 4356-8 ####[facility] LABCLIA [id number] [place] [address] [place] Glucose Test strip (U) [Mass/Vol] Negative Normal Negative [facility] Comment on above: Order Comment: Speci men Type: URINE SPECIMENOrdering Facility: [facility] Address: [address] [place] [address] Performed By: #### 2 4356-8 ####[facility] LABCLIA [id number] [place] [address] [place] Hemoglobin Ql (U) Trace Abnormal Negative [facility] Comment on above: Order Comment: Speci men Type: URINE SPECIMENOrdering Facility: [facility] Address: [address] [place] [address] Performed By: #### 2 4356-8 ####[facility] LABCLIA [id number] [place] [address] [place] Hyaline casts (Urine sed) [#/Area] 1-3 /LPF Abnormal 0 /LPF [facility] Comment on above: Order Comment: Speci men Type: URINE SPECIMENOrdering Facility: [facility] Address: [address] [place] [address] Performed By: #### 2 4356-8 ####[facility] LABCLIA [id number] [place] [address] [place] Ketones Ql (U) Negative Normal Negative [facility] Comment on above: Order Comment: Speci men Type: URINE SPECIMENOrdering Facility: [facility] Address: [address] [place] [address] Performed By: #### 2 4356-8 ####[facility] LABCLIA [id number] [place] [address] [place] Leukocyte esterase Test strip Ql (U) Negative Normal Negative [facility] Comment on above: Order Comment: Speci men Type: URINE SPECIMENOrdering Facility: [facility] Address: [address] [place] [address] Performed By: #### 2 4356-8 ####[facility] LABCLIA [id number] [place] [address] [place] Nitrite Ql (U) Negative Normal Negative [facility] Comment on above: Order Comment: Speci men Type: URINE SPECIMENOrdering Facility: [facility] Address: [address] [place] [address] Performed By: #### 2 4356-8 ####[facility] LABCLIA [id number] [place] [address] [place] pH (U) 5.5 [pH] Normal <8.5 [facility] Comment on above: Order Comment: Speci men Type: URINE SPECIMENOrdering Facility: [facility] Address: [address] [place] [address] Performed By: #### 2 4356-8 ####[facility] LABCLIA [id number] [place] [address] [place] Protein (U) [Mass/Vol] 2+ Abnormal Negative [facility] Comment on above: Order Comment: Speci men Type: URINE SPECIMENOrdering Facility: [facility] Address: [address] [place] [address] Performed By: #### 2 4356-8 ####[facility] LABCLIA [id number] [place] [address] [place] RBC LM.HPF (Urine sed) [#/Area] 3-5 /HPF Abnormal 0-2 /HPF [facility] Comment on above: Order Comment: Speci men Type: URINE SPECIMENOrdering Facility: [facility] Address: [address] [place] [address] Performed By: #### 2 4356-8 ####[facility] [id number] [place] [address] [place] Specific gravity (U) [Rel density] 1.019 Normal 1.005-1.030 [facility] Comment on above: Order Comment: Speci men Type: URINE SPECIMENOrdering Facility: [facility] Address: [address] [place] [address] Performed By: #### 2 4356-8 ####[facility] [id number] [place] [address] [place] Urobilinogen Ql (U) 0.2 EU/dL Normal 0.2-1.0 EU/dL [facility] Comment on above: Order Comment: Speci men Type: URINE SPECIMENOrdering Facility: [facility] Address: [address] [place] [address] Performed By: #### 2 4356-8 ####[facility] [id number] [place] [address] [place] WBC LM.HPF (Urine sed) [#/Area] 6-10 /HPF Abnormal 0-5 /HPF [facility] Comment on above: Order Comment: Speci men Type: URINE SPECIMENOrdering Facility: [facility] Address: [address] [place] [address] Performed By: #### 2 4356-8 ####[facility] [id number] [place] [address] [place] aPTT PPPon 08-02-2024 aPTT Coag (PPP) [Time] 31.1 s Normal 23.0-32.4 [facility] Comment on above: Order Comment: Speci men Type: BLOOD SPECIMENOrdering Facility: [facility] Address: [address] [place] [address] Performed By: #### 1 4979-9, 89648-6 ####[facility] LABCLIA [id number] [place] [address] [place] CBC W Auto Differential pane l (Bld)on 06-11-2024 Basophils (Bld) [#/Vol] 0.04 10*3/uL Normal <0.11 [facility] Comment on above: Order Comment: Speci men Type: BLOOD SPECIMENOrdering Facility: [facility] Address: [address] [place] [address] Performed By: #### 5 7021-8 ####[facility] LABCLIA [id number] [place] [address] [place] Basophils/100 WBC (Bld) 0.5 % Normal [facility] Comment on above: Order Comment: Speci men Type: BLOOD SPECIMENOrdering Facility: [facility] Address: [address] [place] [address] Performed By: #### 5 7021-8 ####[facility] LABCLIA [id number] [place] [address] [place] Differential cell count method Nom (Bld) Auto Normal [facility] Comment on above: Order Comment: Speci men Type: BLOOD SPECIMENOrdering Facility: [facility] Address: [address] [place] [address] Performed By: #### 5 7021-8 ####[facility] LABCLIA [id number] [place] [address] [place] Eosinophils (Bld) [#/Vol] 0.18 10*3/uL Normal <0.46 [facility] Comment on above: Order Comment: Speci men Type: BLOOD SPECIMENOrdering Facility: [facility] Address: [address] [place] [address] Performed By: #### 5 7021-8 ####[facility] LABCLIA [id number] [place] [address] [place] Eosinophils/100 WBC (Bld) 2.1 % Normal [facility] Comment on above: Order Comment: Speci men Type: BLOOD SPECIMENOrdering Facility: [facility] Address: [address] [place] [address] Performed By: #### 5 7021-8 ####[facility] LABCLIA [id number] [place] [address] [place] Erythrocyte distribution width (RBC) [Ratio] 14.1 % Normal 11.5-15.0 [facility] Comment on above: Order Comment: Speci men Type: BLOOD SPECIMENOrdering Facility: [facility] Address: [address] [place] [address] Performed By: #### 5 7021-8 ####[facility] LABIA [id number] [place] [address] [place] Hematocrit (Bld) [Volume fraction] 46.4 % Normal 39.0-51.0 [facility] Comment on above: Order Comment: Speci men Type: BLOOD SPECIMENOrdering Facility: [facility] Address: [address] [place] [address] Performed By: #### 5 7021-8 ####[facility] LABCLIA [id number] [place] [address] [place] Hemoglobin (Bld) [Mass/Vol] 15.4 g/dL Normal 13.0-17.0 [facility] Comment on above: Order Comment: Speci men Type: BLOOD SPECIMENOrdering Facility: [facility] Address: [address] [place] [address] Performed By: #### 5 7021-8 ####[facility] LABCLIA [id number] [place] [address] [place] Immature granulocytes (Bld) [#/Vol] 0.16 10*3/uL High <0.10 [facility] Comment on above: Order Comment: Speci men Type: BLOOD SPECIMENOrdering Facility: [facility] Address: [address] [place] [address] Performed By: #### 5 7021-8 ####[facility] LABCLIA [id number] [place] [address] [place] Immature granulocytes/100 WBC (Bld) 1.9 % Normal [facility] Comment on above: Order Comment: Speci men Type: BLOOD SPECIMENOrdering Facility: [facility] Address: [address] [place] [address] Performed By: #### 5 7021-8 ####[facility] LABCLIA [id number] [place] [address] [place] Lymphocytes (Bld) [#/Vol] 1.95 10*3/uL Normal 1.00-4.00 [facility] Comment on above: Order Comment: Speci men Type: BLOOD SPECIMENOrdering Facility: [facility] Address: [address] [place] [address] Performed By: #### 5 7021-8 ####[facility] LABCLIA [id number] [place] [address] [place] Lymphocytes/100 WBC (Bld) 23.2 % Normal [facility] Comment on above: Order Comment: Speci men Type: BLOOD SPECIMENOrdering Facility: [facility] Address: [address] [place] [address] Performed By: #### 5 7021-8 ####[facility] LABCLIA [id number] [place] [address] [place] MCH (RBC) [Entitic mass] 29.4 pg Normal 26.0-34.0 [facility] Comment on above: Order Comment: Speci men Type: BLOOD SPECIMENOrdering Facility: [facility] Address: [address] [place] [address] Performed By: #### 5 7021-8 ####[facility] LABCLIA [id number] [place] [address] [place] MCHC (RBC) [Mass/Vol] 33.2 g/dL Normal 30.5-36.0 [facility] Comment on above: Order Comment: Speci men Type: BLOOD SPECIMENOrdering Facility: [facility] Address: [address] [place] [address] Performed By: #### 5 7021-8 ####[facility] LABIA [id number] [place] [address] [place] MCV (RBC) [Entitic vol] 88.7 fL Normal 80.0-100.0 [facility] Comment on above: Order Comment: Speci men Type: BLOOD SPECIMENOrdering Facility: [facility] Address: [address] [place] [address] Performed By: #### 5 7021-8 ####[facility] LABCLIA [id number] [place] [address] [place] Monocytes (Bld) [#/Vol] 0.83 10*3/uL Normal <0.87 [facility] Comment on above: Order Comment: Speci men Type: BLOOD SPECIMENOrdering Facility: [facility] Address: [address] [place] [address] Performed By: #### 5 7021-8 ####[facility] LABCLIA [id number] [place] [address] [place] Monocytes/100 WBC (Bld) 9.9 % Normal [facility] Comment on above: Order Comment: Speci men Type: BLOOD SPECIMENOrdering Facility: [facility] Address: [address] [place] [address] Performed By: #### 5 7021-8 ####[facility] LABCLIA [id number] [place] [address] [place] Neutrophils (Bld) [#/Vol] 5.24 10*3/uL Normal 1.45-7.50 [facility] Comment on above: Order Comment: Speci men Type: BLOOD SPECIMENOrdering Facility: [facility] Address: [address] [place] [address] Performed By: #### 5 7021-8 ####[facility] LABCLIA [id number] [place] [address] [place] Neutrophils/100 WBC (Bld) 62.4 % Normal [facility] Comment on above: Order Comment: Speci men Type: BLOOD SPECIMENOrdering Facility: [facility] Address: [address] [place] [address] Performed By: #### 5 7021-8 ####[facility] LABCLIA [id number] [place] [address] [place] Nucleated RBC (Bld) [#/Vol] 10*3/uL Normal <0.01 [facility] Comment on above: Order Comment: Speci men Type: BLOOD SPECIMENOrdering Facility: [facility] Address: [address] [place] [address] Performed By: #### 5 7021-8 ####[facility] LABCLIA [id number] [place] [address] [place] Nucleated RBC/100 WBC (Bld) [Ratio] 0.0 /100 WBC Normal [facility] Comment on above: Order Comment: Speci men Type: BLOOD SPECIMENOrdering Facility: [facility] Address: [address] [place] [address] Performed By: #### 5 7021-8 ####[facility] LABCLIA [id number] [place] [address] [place] Platelet mean volume (Bld) [Entitic vol] 10.2 fL Normal 9.0-12.7 [facility] Comment on above: Order Comment: Speci men Type: BLOOD SPECIMENOrdering Facility: [facility] Address: [address] [place] [address] Performed By: #### 5 7021-8 ####[facility] LABCLIA [id number] [place] [address] [place] Platelets (Bld) [#/Vol] 177 10*3/uL Normal 150-400 [facility] Comment on above: Order Comment: Speci men Type: BLOOD SPECIMENOrdering Facility: [facility] Address: [address] [place] [address] Performed By: #### 5 7021-8 ####[facility] LABIA [id number] [place] [address] [place] RBC (Bld) [#/Vol] 5.23 10*6/uL Normal 4.20-6.00 [facility] Comment on above: Order Comment: Speci men Type: BLOOD SPECIMENOrdering Facility: [facility] Address: [address] [place] [address] Performed By: #### 5 7021-8 ####[facility] LABIA [id number] [place] [address] [place] WBC (Bld) [#/Vol] 8.40 10*3/uL Normal 3.70-11.00 [facility] Comment on above: Order Comment: Speci men Type: BLOOD SPECIMENOrdering Facility: [facility] Address: [address] [place] [address] Performed By: #### 5 7021-8 ####[facility] LABIA [id number] [place] [address] [place] CEA SerPl-mCncon 06-11-2024 Carcinoembryonic Ag [Mass/Vol] 2.7 ng/mL Normal <=2.9 [facility] Comment on above: Order Comment: Speci men Type: BLOOD SPECIMENOrdering Facility: [facility] Address: [address] [place] [address] Result Comment: Carc inoembryonic antigen test is used as an aid in monitoring response to treatment or recurrence in patients with established colorectal, breast, lung, prostatic, pancreatic, and ovarian carcinomas. Clinical correlation is required.The Carcinoembryonic antigen test was performed using the [employer] Unicel DXI paramagnetic particle chemiluminescent immunoassay method. Results obtained with different assay methods or kits cannot be used interchangeably. Performed By: #### 2 039-6 ####[facility] LABCLIA [id number] [place] [id number] [place] Comprehensive metabolic 2000 panelon 06-11-2024 Albumin [Mass/Vol] 4.1 g/dL Normal 3.9-4.9 [facility] Comment on above: Order Comment: Speci men Type: BLOOD SPECIMENOrdering Facility: [facility] Address: [address] [place] [address] Performed By: #### 2 777-1, 53188-7, 3033-6, 04940-4 ####[facility] LABCLIA [id number] [place] [id number] [place] ALP [Catalytic activity/Vol] 46 U/L Normal 38-113 [facility] Comment on above: Order Comment: Speci men Type: BLOOD SPECIMENOrdering Facility: [facility] Address: [address] [place] [address] Performed By: #### 2 777-1, 05272-6, 3033-6, 66734-9 ####[facility] LABCLIA [id number] [place] [id number] [place] ALT [Catalytic activity/Vol] 22 U/L Normal 10-54 [facility] Comment on above: Order Comment: Speci men Type: BLOOD SPECIMENOrdering Facility: [facility] Address: [address] [place] [address] Performed By: #### 2 777-1, 54417-2, 3033-6, 07568-2 ####[facility] LABCLIA [id number] [address] [address] [place] Anion gap [Moles/Vol] 10 mmol/L Normal 8-15 [facility] Comment on above: Order Comment: Speci men Type: BLOOD SPECIMENOrdering Facility: [facility] Address: [address] [place] [address] Performed By: #### 2 777-1, 95572-4, 3033-6, 90950-2 ####[facility] LABCLIA [id number] [address] [address] [place] AST [Catalytic activity/Vol] 21 U/L Normal 14-40 [facility] Comment on above: Order Comment: Speci men Type: BLOOD SPECIMENOrdering Facility: [facility] Address: [address] [place] [address] Performed By: #### 2 777-1, 43829-4, 3033-6, 97595-2 ####[facility] LABCLIA [id number] [address] [address] [place] Bilirubin [Mass/Vol] 0.5 mg/dL Normal 0.2-1.3 [facility] Comment on above: Order Comment: Speci men Type: BLOOD SPECIMENOrdering Facility: [facility] Address: [address] [place] [address] Performed By: #### 2 777-1, 98881-2, 3033-6, 71667-6 ####[facility] LABCLIA [id number] [address] [address] [place] Calcium [Mass/Vol] 9.5 mg/dL Normal 8.5-10.2 [facility] Comment on above: Order Comment: Speci men Type: BLOOD SPECIMENOrdering Facility: [facility] Address: [address] [place] [address] Performed By: #### 2 777-1, 75587-0, 3033-6, 59914-7 ####[facility] LABCLIA [id number] [address] [address] [place] Chloride [Moles/Vol] 101 mmol/L Normal 98-107 [facility] Comment on above: Order Comment: Speci men Type: BLOOD SPECIMENOrdering Facility: [facility] Address: [address] [place] [address] Performed By: #### 2 777-1, 78354-2, 303-6, 00126-6 ####[facility] LABCLIA [id number] [address] [address] [place] CO2 [Moles/Vol] 25 mmol/L Normal 22-30 [facility] Comment on above: Order Comment: Speci men Type: BLOOD SPECIMENOrdering Facility: [facility] Address: [address] [place] [address] Performed By: #### 2 777-1, 61036-1, 3033-6, 51986-3 ####[facility] LABCLIA [id number] [address] [address] [place] Creatinine [Mass/Vol] 1.38 mg/dL High 0.73-1.22 [facility] Comment on above: Order Comment: Speci men Type: BLOOD SPECIMENOrdering Facility: [facility] Address: [address] [place] [address] Performed By: #### 2 777-1, 42863-0, 3033-6, 82305-1 ####[facility] LABIA [id number] [address] [address] [place] Creatinine and Glomerular filtration rate.predicted panel (S/P/Bld) 53 mL/min/1.73m??? Low >=60 [facility] Comment on above: Order Comment: Speci men Type: BLOOD SPECIMENOrdering Facility: [facility] Address: [address] [place] [address] Result Comment: Annalisa mated Glomerular Filtration Rate [...] Performed By: #### 2 777-1, , 3033-, ####[facility] LABCLIA [id number] [address] [address] [place] Glucose [Mass/Vol] 92 mg/dL Normal 74-99 [facility] Comment on above: Order Comment: Bobby villalpando Type: BLOOD SPECIMENOrdering Facility: [facility] Address: [address] [place] [address] Result Comment: The [place] [employer] (ADA) provides guidance for cutoff [...] Standards of Medical Care in Diabetes 2016, [place] [employer]. Diabetes Care. 2016.39(Suppl 1). Performed By: #### 2 777-1, , 3034-04, ####[facility] LABCLIA [id number] [address] [address] [place] Potassium [Moles/Vol] 4.7 mmol/L Normal 3.7-5.1 [facility] Comment on above: Order Comment: Bobby villalpando Type: BLOOD SPECIMENOrdering Facility: [facility] Address: [address] [place] [address] Performed By: #### 2 777-1, , 3034-04, ####[facility] LABCLIA [id number] [address] [address] [place] Protein [Mass/Vol] 6.5 g/dL Normal 6.3-8.0 [facility] Comment on above: Order Comment: Speci men Type: BLOOD SPECIMENOrdering Facility: [facility] Address: [address] [place], [place] [address] Performed By: #### 2 777-1, 06452-5, 3034-04, 33983-9 ####[facility] LABIA [id number] [address] [address] [place] Sodium [Moles/Vol] 136 mmol/L Normal 136-144 [facility] Comment on above: Order Comment: Speci men Type: BLOOD SPECIMENOrdering Facility: [facility] Address: [address] [place], [place] [address] Performed By: #### 2 777-1, 27076-2, 6, 63621-5 ####[facility] LABIA [id number] [address] [address] [place] Urea nitrogen [Mass/Vol] 21 mg/dL Normal 9-24 [facility] Comment on above: Order Comment: Speci men Type: BLOOD SPECIMENOrdering Facility: [facility] Address: [address] [place], [place] [address] Performed By: #### 2 777-1, 04547-8, 3034-04, 02649-6 ####[facility] LABIA [id number] [address] [address] [place] HISTORY PHYSICALon HISTORY PHYSICAL Normal [facility] Magnesium SerPl-mCncon 06-11 Magnesium [Mass/Vol] 2.2 mg/dL Normal 1.7-2.3 [facility] Comment on above: Order Comment: Speci men Type: BLOOD SPECIMENOrdering Facility: [facility] Address: [address] [place] [address] Performed By: #### 2 777-1, 76842-3, 3034-6, 33186-9 ####[facility] [id number] [place] [address] [place] NURSING PROGon 06-11-2024 NURSING PROG Normal [facility] PT panel Coag (PPP)on 2023 INR Coag (PPP) [Relative time] 1.0 {INR} Normal 0.9-1.3 [facility] Comment on above: Order Comment: Speci men Type: BLOOD SPECIMENOrdering Facility: [facility] Address: [address] [place] [address] Result Comment: Rizwana min K Antagonist (VKA) Therapeutic Range: INR 2 to 3 (Target INR of 2.5)Note: For patients treated with VKA drugs, such as warfarin, the [place] [employer] 2012 Guideline recommends [...] al. Chest 2012, 141:7S-47SNishimura RA, et al. [facility] 2017, 70: [phone] Performed By: #### 3 4528-0, 78877-4 ####[facility] LABIA [id number] [place] [address] [place] PT Coag (PPP) [Time] 10.9 s Normal 9.7-13.0 [facility] Comment on above: Order Comment: Speci men Type: BLOOD SPECIMENOrdering Facility: [facility] Address: [address] [place] [address] Performed By: #### 3 4528-0, 46147-8 ####[facility] LABCLIA [id number] [place] [address] [place] Phosphate SerPl-mCncon 06-11 Phosphate [Mass/Vol] 3.8 mg/dL Normal 2.7-4.8 [facility] Comment on above: Order Comment: Speci men Type: BLOOD SPECIMENOrdering Facility: [facility] Address: [address] [place] [address] Performed By: #### 2 777-1, 07734-0, 3034-6, 63983-3 ####[facility] LABCLIA [id number] [address] [place] Prealb SerPl-mCncon 06-11-20 24 Prealbumin [Mass/Vol] 21 mg/dL Normal 17-36 [facility] Comment on above: Order Comment: Speci men Type: BLOOD SPECIMENOrdering Facility: [facility] Address: [address] [place] [address] Performed By: #### 1 4338-8 ####[facility] LABCLIA [id number] [place] [address] [place] TYPE + SCREENon 06-11-2024 ABO A Normal [facility] Comment on above: Order Comment: Speci men Type: BLOOD SPECIMENOrdering Facility: [facility] Address: [address] [place] [address] Performed By: #### T SCR ####[facility] BLOOD BANKIA [id number] [place] [address] [place] HISTORICAL AB SCR STATUS Negative Normal [facility] Comment on above: Order Comment: Speci men Type: BLOOD SPECIMENOrdering Facility: [facility] Address: [address] [place] [address] Performed By: #### T SCR ####[facility] BLOOD BANKCLIA [id number] [place] [id number] [place] Rh Nom (Bld) Positive Normal [facility] Comment on above: Order Comment: Speci men Type: BLOOD SPECIMENOrdering Facility: [facility] Address: [address] [place] [address] Performed By: #### T SCR ####[facility] BLOOD BANKCLIA [id number] [place] [address] [place] TYPE AND SCREEN EXPIRATION 06/14/2024 23:59 Normal [facility] Comment on above: Order Comment: Speci men Type: BLOOD SPECIMENOrdering Facility: [facility] Address: [address] [place] [address] Performed By: #### T SCR ####[facility] BLOOD BANKCLIA [id number] [place] [address] [place] Transferrin SerPl-mCncon Transferrin [Mass/Vol] 249 mg/dL Normal 200-360 [facility] Comment on above: Order Comment: Speci men Type: BLOOD SPECIMENOrdering Facility: [facility] Address: [address] [place] [address] Performed By: #### 2 777-1, 22724-8, 3034-6, 01949-9 ####[facility] LABCLIA [id number] [place] [address] [place] aPTT PPPon 06-11-2024 aPTT Coag (PPP) [Time] 33.5 s High 23.0-32.4 [facility] Comment on above: Order Comment: Speci men Type: BLOOD SPECIMENOrdering Facility: [facility] Address: [address] [place] [address] Performed By: #### 3 4528-0, 27952-9 ####[facility] LABCLIA [id number] [place] [address] [place] Covid-19 PCR (CVDTB)on SARS-CoV-2 (COVID-19) RNA VENESSA+probe Ql (Unsp spec) Not detected Normal NOT DETECTED [facility] Comment on above: Result Comment: [...] for this test is supported by the Loan Operations Specialist of Health and Human Service's declaration that [...] Performed By: #### B MP, BNP #### [facility] [address] [place] [address] Dr. Leni Hamlin INFLUENZA A AND B AGon 01-[facility] Normal [facility] Comment on above: Result Comment: Nega tive for Flu A protein angiten. Infection due to Flu A cannot be ruled out. Flu A angiten in the sample may be below the detection limit of the test. Performed By: #### C RP #### [facility] [address] [place] [address] Dr. Leni Ham[facility] BEL[facility] Normal [facility] Comment on above: Result Comment: Nega tive for Flu B protein antigen. Infection due to Flu B cannot be ruled out. Flu B antigen in the sample may be below the detection limit of the test. Performed By: #### C RP #### [facility] [address] [place] [address] Dr. Leni Hamlin INFLUENZA A AG Negative Normal NEGATIVE SEE COMMENT [facility] Comment on above: Performed By: #### C RP #### [facility] [address] [place] [address] Dr. Leni Hamlin INFLUENZA B AG Negative Normal NEGATIVE SEE COMMENT [facility] Comment on above: Performed By: #### C RP #### [facility] [address] LSPINE WO CONon [...] CIERA HERNÁNDEZ Date: 2022-12-18 15:56 Normal [facility] CBC AUTO DIFFon 10-03-2022 BASO # 0.1 103/ul Normal 0.0-0.1 [facility] Comment on above: Performed By: #### B MP, BNP #### [facility] [address] [place] [address] Dr. Leni Hamlin Basophils/100 WBC (Bld) 0.5 % Normal 0.2-2.0 [facility] Comment on above: Performed By: #### B MP, BNP #### [facility] [address] [place] [address] Dr. Leni Hamlin EO # 0.3 103/ul Normal 0.0-0.7 [facility] Comment on above: Performed By: #### B MP, BNP #### [facility] [address] [place] [address] Dr. Leni Hamlin Eosinophils/100 WBC (Bld) 2.2 % Normal 0.9-7.0 [facility] Comment on above: Performed By: #### B MP, BNP #### [facility] [address] [place] [address] Dr. Leni Hamlin Erythrocyte distribution width (RBC) [Ratio] 13.3 % Normal 11.0-15.0 [facility] Comment on above: Performed By: #### B MP, BNP #### [facility] [address] [place] [address] Dr. Leni Hamlin Hematocrit (Bld) [Volume fraction] 46.9 % Normal 42.0-54.0 [facility] Comment on above: Performed By: #### B MP, BNP #### [facility] [address] [place] [address] Dr. Leni Hamlin Hemoglobin (Bld) [Mass/Vol] 15.3 g/dL Normal 14.0-18.0 [facility] Comment on above: Performed By: #### B MP, BNP #### [facility] [address] [place] [address] Dr. Leni Hamlin IG # 0.18 10e3/ul Critically high 0.00-0.03 [facility] Comment on above: Performed By: #### B MP, BNP #### [facility] [address] [place] [address] Dr. Leni Hamlin IG % 1.3 % Critically high 0.0-0.5 [facility] Comment on above: Performed By: #### B MP, BNP #### [facility] [address] [address] [address] Leni Hamlin LYMPH # 1.9 103/ul Normal 1.2-3.8 [facility] Comment on above: Performed By: #### B MP, BNP #### [facility] [address] [address] [address] Leni Hamlin Lymphocytes/100 WBC (Bld) 13.6 % Critically low 20.5-60.0 [facility] Comment on above: Performed By: #### B MP, BNP #### [facility] [address] [address] [address] Leni Hamlin MANUAL DIFF REQ NO Normal [facility] Comment on above: Performed By: #### B MP, BNP #### [facility] [address] [place] [address] Dr. Leni Hamlin MCH (RBC) [Entitic mass] 29.2 pg Normal 25.9-34.0 [facility] Comment on above: Performed By: #### B MP, BNP #### [facility] [address] [address] [address] Leni Hamlin MCHC (RBC) [Mass/Vol] 32.6 g/dL Normal 29.9-35.2 [facility] Comment on above: Performed By: #### B MP, BNP #### [facility] [address] [address] [address] Leni Hamlin MCV (RBC) [Entitic vol] 89.5 fL Normal 80.0-94.0 [facility] Comment on above: Performed By: #### B MP, BNP #### [facility] [address] [address] [address] Leni Hamlin MONO # 0.9 103/ul Critically high 0.3-0.8 [facility] Comment on above: Performed By: #### B MP, BNP #### [facility] [address] [address] [address] Leni Hamlin Monocytes/100 WBC (Bld) 6.6 % Normal 1.7-12.0 [facility] Comment on above: Performed By: #### B MP, BNP #### [facility] [address] [address] [address] Leni Hamlin NEUT # 10.4 103/ul Critically high 1.4-6.5 [facility] Comment on above: Performed By: #### B MP, BNP #### [facility] [address] [address] [address] Leni Hamlin Neutrophils/100 WBC (Bld) 75.8 % Critically high 43.0-75.0 [facility] Comment on above: Performed By: #### B MP, BNP #### [facility] [address] [place] [address] Dr. Leni Hamlin Platelet mean volume (Bld) [Entitic vol] 10.6 fL Normal 9.5-13.5 [facility] Comment on above: Performed By: #### B MP, BNP #### [facility] [address] [place] [address] Dr. Leni Hamlin PLT 143 103/ul Critically low 150-450 [facility] Comment on above: Performed By: #### B MP, BNP #### [facility] [address] [place] [address] Dr. Leni Hamlin RBC 5.24 106/ul Normal 4.70-6.10 [facility] Comment on above: Performed By: #### B MP, BNP #### [facility] [address] [address] [address] Leni Hamlin WBC 13.7 103/ul Critically high 4.0-11.0 [facility] Comment on above: Performed By: #### B MP, BNP #### [facility] [address] [place] [address] Dr. Leni Hamlin CRPon 10-03-2022 CRP 7.6 mg/dL Critically high <=1.0 [facility] Comment on above: Performed By: #### C MP, CRP #### [facility] [address] [place] [address] Dr. Leni Hamlin PROF 14(COMP METB)on 11-23-2 022 Albumin [Mass/Vol] 2.5 g/dL Critically low 3.4-5.0 [facility] Comment on above: Performed By: #### C MP, CRP #### [facility] [address] [place] [address] Dr. Leni Hamlin Albumin/Globulin [Mass ratio] 0.7 {ratio} Normal [facility] Comment on above: Performed By: #### C MP, CRP #### [facility] [address] [address] [address] Leni Hamlin ALP [Catalytic activity/Vol] 54 U/L Normal 46-116 [facility] Comment on above: Performed By: #### C MP, CRP #### [facility] [address] [place] [address] Dr. Leni Hamlin ALT [Catalytic activity/Vol] 11 U/L Critically low 16-63 [facility] Comment on above: Performed By: #### C MP, CRP #### [facility] [address] [place] [address] Dr. Leni Hamlin Anion gap [Moles/Vol] 8.8 mmol/L Normal [facility] Comment on above: Performed By: #### C MP, CRP #### [facility] [address] [place] [address] Dr. Leni Hamlin AST [Catalytic activity/Vol] 9 U/L Critically low 15-37 [facility] Comment on above: Performed By: #### C MP, CRP #### [facility] [address] [place] [address] Dr. Leni Hamlin Bilirubin [Mass/Vol] 0.3 mg/dL Normal 0.2-1.0 [facility] Comment on above: Performed By: #### C MP, CRP #### [facility] [address] [place] [address] Dr. Leni Hamlin Calcium [Mass/Vol] 8.6 mg/dL Normal 8.5-10.1 [facility] Comment on above: Performed By: #### C MP, CRP #### [facility] [address] [place] [address] Dr. Leni Hamlin Chloride [Moles/Vol] 103 mmol/L Normal 98-107 [facility] Comment on above: Performed By: #### C MP, CRP #### [facility] [address] [address] [address] Leni Hamlin CO2 [Moles/Vol] 29.2 mmol/L Normal 21.0-32.0 [facility] Comment on above: Performed By: #### C MP, CRP #### [facility] [address] [address] [address] Leni Hamlin Creatinine [Mass/Vol] 1.20 mg/dL Normal 0.70-1.30 [facility] Comment on above: Performed By: #### C MP, CRP #### [facility] [address] [address] [address] Leni Hamlin EGFR-AF ALGERIAN >60 Normal >=60 [facility] Comment on above: Performed By: #### C MP, CRP #### [facility] [address] [address] [address] Leni Hamlin EGFR-NON AF ALGERIAN 59 mL/min/1.73m2 Critically low >=60 [facility] Comment on above: Performed By: #### C MP, CRP #### [facility] [address] [place] [address] Dr. Leni Hamlin Globulin (S) [Mass/Vol] 3.4 g/dL Normal [facility] Comment on above: Performed By: #### C MP, CRP #### [facility] [address] [address] [address] Leni Hamlin Glucose [Mass/Vol] 108 mg/dL Critically high 74-106 T [facility] Comment on above: Performed By: #### C MP, CRP #### [facility] [address] [address] [address] Leni Hamlin Potassium [Moles/Vol] 4.0 mmol/L Normal 3.5-5.1 [facility] Comment on above: Performed By: #### C MP, CRP #### [facility] [address] [address] [address] Leni Hamlin Protein [Mass/Vol] 5.9 g/dL Critically low 6.4-8.2 [facility] Comment on above: Performed By: #### C MP, CRP #### [facility] [address] [place] [address] Dr. Leni Hamlin Sodium [Moles/Vol] 137 mmol/L Normal 136-145 [facility] Comment on above: Performed By: #### C MP, CRP #### [facility] [address] [place] [address] Dr. Leni Hamlin Urea nitrogen [Mass/Vol] 15.0 mg/dL Normal 7.0-18.0 [facility] Comment on above: Performed By: #### C MP, CRP #### [facility] [address] [place] [address] Dr. Leni Hamlin Urea nitrogen/Creatinine [Mass ratio] 12.5 mg/mg Normal [facility] Comment on above: Performed By: #### C MP, CRP #### [facility] [address] [place] [address] Dr. Leni Hamlin CBC AUTO DIFFon 10-02-2022 BASO # 0.1 103/ul Normal 0.0-0.1 [facility] Comment on above: Performed By: #### C MP, CRP #### [facility] [address] [place] [address] Dr. Leni Hamlin Basophils/100 WBC (Bld) 0.5 % Normal 0.2-2.0 [facility] Comment on above: Performed By: #### C MP, CRP #### [facility] [address] [place] [address] Dr. Leni Hamlin EO # 0.2 103/ul Normal 0.0-0.7 [facility] Comment on above: Performed By: #### C MP, CRP #### [facility] [address] [place] [address] Dr. Leni Hamlin Eosinophils/100 WBC (Bld) 1.6 % Normal 0.9-7.0 [facility] Comment on above: Performed By: #### C MP, CRP #### [facility] [address] [place] [address] Dr. Leni Hamlin Erythrocyte distribution width (RBC) [Ratio] 13.4 % Normal 11.0-15.0 [facility] Comment on above: Performed By: #### C MP, CRP #### [facility] [address] [place] [address] Dr. Leni Hamlin Hematocrit (Bld) [Volume fraction] 46.6 % Normal 42.0-54.0 [facility] Comment on above: Performed By: #### C MP, CRP #### [facility] [address] [place] [address] Dr. Leni Hamlin Hemoglobin (Bld) [Mass/Vol] 15.1 g/dL Normal 14.0-18.0 [facility] Comment on above: Performed By: #### C MP, CRP #### [facility] [address] [place] [address] Dr. Leni Hamlin IG # 0.21 10e3/ul Critically high 0.00-0.03 [facility] Comment on above: Performed By: #### C MP, CRP #### [facility] [address] [place] [address] Dr. Leni Hamlin IG % 1.4 % Critically high 0.0-0.5 [facility] Comment on above: Performed By: #### C MP, CRP #### [facility] [address] [place] [address] Dr. Leni Hamlin LYMPH # 1.9 103/ul Normal 1.2-3.8 [facility] Comment on above: Performed By: #### C MP, CRP #### [facility] [address] [place] [address] Dr. Leni Hamlin Lymphocytes/100 WBC (Bld) 12.4 % Critically low 20.5-60.0 [facility] Comment on above: Performed By: #### C MP, CRP #### [facility] [address] [place] [address] Dr. Leni Hamlin MANUAL DIFF REQ NO Normal [facility] Comment on above: Performed By: #### C MP, CRP #### [facility] [address] [address] [address] Leni Hamlin MCH (RBC) [Entitic mass] 28.9 pg Normal 25.9-34.0 [facility] Comment on above: Performed By: #### C MP, CRP #### [facility] [address] [place] [address] Dr. Leni Hamlin MCHC (RBC) [Mass/Vol] 32.4 g/dL Normal 29.9-35.2 [facility] Comment on above: Performed By: #### C MP, CRP #### [facility] [address] [place] [address] Dr. Leni Hamlin MCV (RBC) [Entitic vol] 89.3 fL Normal 80.0-94.0 [facility] Comment on above: Performed By: #### C MP, CRP #### [facility] [address] [place] [address] Dr. Leni Hamlin MONO # 1.1 103/ul Critically high 0.3-0.8 [facility] Comment on above: Performed By: #### C MP, CRP #### [facility] [address] [place] [address] Dr. Leni Hamlin Monocytes/100 WBC (Bld) 6.9 % Normal 1.7-12.0 [facility] Comment on above: Performed By: #### C MP, CRP #### [facility] [address] [place] [address] Dr. Leni Hamlin NEUT # 11.8 103/ul Critically high 1.4-6.5 [facility] Comment on above: Performed By: #### C MP, CRP #### [facility] [address] [place] [address] Dr. Leni Hamlin Neutrophils/100 WBC (Bld) 77.2 % Critically high 43.0-75.0 [facility] Comment on above: Performed By: #### C MP, CRP #### [facility] [address] [place] [address] Dr. Leni Hamlin Platelet mean volume (Bld) [Entitic vol] 10.5 fL Normal 9.5-13.5 [facility] Comment on above: Performed By: #### C MP, CRP #### [facility] [address] [address] [address] Leni Hamlin PLT 138 103/ul Critically low 150-450 [facility] Comment on above: Performed By: #### C MP, CRP #### [facility] [address] [address] [address] Leni Hamlin RBC 5.22 106/ul Normal 4.70-6.10 [facility] Comment on above: Performed By: #### C MP, CRP #### [facility] [address] [address] [address] Leni Hamlin WBC 15.3 103/ul Critically high 4.0-11.0 [facility] Comment on above: Performed By: #### C MP, CRP #### [facility] [address] [place] [address] Dr. Leni Hamlin CRPon 10-02-2022 CRP 13.7 mg/dL Critically high <=1.0 [facility] Comment on above: Performed By: #### C VDAGS #### [facility] [address] [place] [address] Dr. Leni Hamlin PROF 14(COMP METB)on 022 Albumin [Mass/Vol] 2.5 g/dL Critically low 3.4-5.0 Th [facility] Comment on above: Performed By: #### C VDAGS #### [facility] [address] [place] [address] Dr. Leni Hamlin Albumin/Globulin [Mass ratio] 0.8 {ratio} Normal [facility] Comment on above: Performed By: #### C VDAGS #### [facility] [address] [address] [address] Leni Hmalin ALP [Catalytic activity/Vol] 54 U/L Normal 46-116 [facility] Comment on above: Performed By: #### C VDAGS #### [facility] [address] [place] [address] Dr. Leni Hamlin ALT [Catalytic activity/Vol] 13 U/L Critically low 16-63 [facility] Comment on above: Performed By: #### C VDAGS #### [facility] [address] [address] [address] Leni Hamlin Anion gap [Moles/Vol] 10.6 mmol/L Normal [facility] Comment on above: Performed By: #### C VDAGS #### [facility] [address] [address] [address] Leni Hamlin AST [Catalytic activity/Vol] 9 U/L Critically low 15-37 [facility] Comment on above: Performed By: #### C VDAGS #### [facility] [address] [address] [address] Leni Hamlin Bilirubin [Mass/Vol] 0.3 mg/dL Normal 0.2-1.0 [facility] Comment on above: Performed By: #### C VDAGS #### [facility] [address] [address] [address] Leni Hamlin Calcium [Mass/Vol] 8.5 mg/dL Normal 8.5-10.1 [facility] Comment on above: Performed By: #### C VDAGS #### [facility] [address] [address] [address] Leni Hamlin Chloride [Moles/Vol] 104 mmol/L Normal 98-107 [facility] Comment on above: Performed By: #### C VDAGS #### [facility] [address] [address] [address] Leni Hamlin CO2 [Moles/Vol] 27.5 mmol/L Normal 21.0-32.0 [facility] Comment on above: Performed By: #### C VDAGS #### [facility] [address] [address] [address] Leni Hamlin Creatinine [Mass/Vol] 1.26 mg/dL Normal 0.70-1.30 [facility] Comment on above: Performed By: #### C VDAGS #### [facility] [address] [address] [address] Leni Hamlin EGFR-AF ALGERIAN >60 Normal >=60 [facility] Comment on above: Performed By: #### C VDAGS #### [facility] [address] [address] [address] Leni Hamlin EGFR-NON AF ALGERIAN 56 mL/min/1.73m2 Critically low >=60 [facility] Comment on above: Performed By: #### C VDAGS #### [facility] [address] [address] [address] Leni Hamlin Globulin (S) [Mass/Vol] 3.3 g/dL Normal [facility] Comment on above: Performed By: #### C VDAGS #### [facility] [address] [address] [address] Leni Hamlin Glucose [Mass/Vol] 122 mg/dL Critically high 74-106 T [facility] Comment on above: Performed By: #### C VDAGS #### [facility] [address] [address] [address] Leni Hamlin Potassium [Moles/Vol] 4.1 mmol/L Normal 3.5-5.1 [facility] Comment on above: Performed By: #### C VDAGS #### [facility] [address] [address] [address] Leni Hamlin Protein [Mass/Vol] 5.8 g/dL Critically low 6.4-8.2 Th [facility] Comment on above: Performed By: #### C VDAGS #### [facility] [address] [address] [address] Leni Hamlin Sodium [Moles/Vol] 138 mmol/L Normal 136-145 [facility] Comment on above: Performed By: #### C VDAGS #### [facility] [address] [address] [address] Leni Hamlin Urea nitrogen [Mass/Vol] 20.0 mg/dL Critically high 7.0-18.0 [facility] Comment on above: Performed By: #### C VDAGS #### [facility] [address] [address] [address] Leni Hamlin Urea nitrogen/Creatinine [Mass ratio] 15.9 mg/mg Normal [facility] Comment on above: Performed By: #### C VDAGS #### [facility] [address] [place] [address] Dr. Leni Hamlin CBC AUTO DIFFon 10-01-2022 BASO # 0.1 103/ul Normal 0.0-0.1 [facility] Comment on above: Performed By: #### C MP, CRP #### [facility] [address] [place] [address] Dr. Leni Hamlin Basophils/100 WBC (Bld) 0.3 % Normal 0.2-2.0 [facility] Comment on above: Performed By: #### C MP, CRP #### [facility] [address] [place] [address] Dr. Leni Hamlin EO # 0.2 103/ul Normal 0.0-0.7 [facility] Comment on above: Performed By: #### C MP, CRP #### [facility] [address] [place] [address] Dr. Leni Hamlin Eosinophils/100 WBC (Bld) 0.8 % Critically low 0.9-7.0 [facility] Comment on above: Performed By: #### C MP, CRP #### [facility] [address] [place] [address] Dr. Leni Hamlin Erythrocyte distribution width (RBC) [Ratio] 13.6 % Normal 11.0-15.0 [facility] Comment on above: Performed By: #### C MP, CRP #### [facility] [address] [place] [address] Dr. Leni Hamlin Hematocrit (Bld) [Volume fraction] 49.0 % Normal 42.0-54.0 [facility] Comment on above: Performed By: #### C MP, CRP #### [facility] [address] [place] [address] Dr. Leni Hamlin Hemoglobin (Bld) [Mass/Vol] 16.0 g/dL Normal 14.0-18.0 [facility] Comment on above: Performed By: #### C MP, CRP #### [facility] [address] [place], [place] [id number] Dr. Leni Hamlin IG # 0.24 10e3/ul Critically high 0.00-0.03 [facility] Comment on above: Performed By: #### C MP, CRP #### [facility] [address] [place] [address] Dr. Leni Hamlin IG % 1.2 % Critically high 0.0-0.5 [facility] Comment on above: Performed By: #### C MP, CRP #### [facility] [address] [place] [address] Dr. Leni Hamlin LYMPH # 1.6 103/ul Normal 1.2-3.8 [facility] Comment on above: Performed By: #### C MP, CRP #### [facility] [address] [place] [address] Dr. Leni Hamlin Lymphocytes/100 WBC (Bld) 8.0 % Critically low 20.5-60.0 [facility] Comment on above: Performed By: #### C MP, CRP #### [facility] [address] [place] [address] Dr. Leni Hamlin MANUAL DIFF REQ NO Normal [facility] Comment on above: Performed By: #### C MP, CRP #### [facility] [address] [place] [address] Dr. Leni Hamlin MCH (RBC) [Entitic mass] 29.4 pg Normal 25.9-34.0 [facility] Comment on above: Performed By: #### C MP, CRP #### [facility] [address] [place] [address] Dr. Leni Hamlin MCHC (RBC) [Mass/Vol] 32.7 g/dL Normal 29.9-35.2 [facility] Comment on above: Performed By: #### C MP, CRP #### [facility] [address] [place] [address] Dr. Leni Hamlin MCV (RBC) [Entitic vol] 90.1 fL Normal 80.0-94.0 [facility] Comment on above: Performed By: #### C MP, CRP #### [facility] [address] [address] [address] Leni Hamlin MONO # 1.0 103/ul Critically high 0.3-0.8 [facility] Comment on above: Performed By: #### C MP, CRP #### [facility] [address] [place] [address] Dr. Leni Hamlin Monocytes/100 WBC (Bld) 5.1 % Normal 1.7-12.0 [facility] Comment on above: Performed By: #### C MP, CRP #### [facility] [address] [place] [address] Dr. Leni Hamlin NEUT # 16.8 103/ul Critically high 1.4-6.5 [facility] Comment on above: Performed By: #### C MP, CRP #### [facility] [address] [place] [address] Dr. Leni Hamlin Neutrophils/100 WBC (Bld) 84.6 % Critically high 43.0-75.0 [facility] Comment on above: Performed By: #### C MP, CRP #### [facility] [address] [place] [address] Dr. Leni Hamlin Platelet mean volume (Bld) [Entitic vol] 9.7 fL Normal 9.5-13.5 [facility] Comment on above: Performed By: #### C MP, CRP #### [facility] [address] [place] [address] Dr. Leni Hamlin PLT 138 103/ul Critically low 150-450 [facility] Comment on above: Performed By: #### C MP, CRP #### [facility] [address] [place] [address] Dr. Leni Hamlin RBC 5.44 106/ul Normal 4.70-6.10 [facility] Comment on above: Performed By: #### C MP, CRP #### [facility] [address] [place] [address] Dr. Leni Hamlin WBC 19.8 103/ul Critically high 4.0-11.0 [facility] Comment on above: Performed By: #### C MP, CRP #### [facility] [address] [place] [address] Dr. Leni Hamlin BASO # 0.1 103/ul Normal 0.0-0.1 [facility] Comment on above: Performed By: #### B MP, BNP #### [facility] [address] [place] [address] Dr. Leni Hamlin Basophils/100 WBC (Bld) 0.3 % Normal 0.2-2.0 [facility] Comment on above: Performed By: #### B MP, BNP #### [facility] [address] [place] [address] Dr. Leni Hamlin EO # 0.1 103/ul Normal 0.0-0.7 [facility] Comment on above: Performed By: #### B MP, BNP #### [facility] [address] [place] [address] Dr. Leni Hamlin Eosinophils/100 WBC (Bld) 0.7 % Critically low 0.9-7.0 [facility] Comment on above: Performed By: #### B MP, BNP #### [facility] [address] [place] [address] Dr. Leni Hamlin Erythrocyte distribution width (RBC) [Ratio] 13.6 % Normal 11.0-15.0 [facility] Comment on above: Performed By: #### B MP, BNP #### [facility] [address] [place] [address] Dr. Leni Hamlin Hematocrit (Bld) [Volume fraction] 46.9 % Normal 42.0-54.0 [facility] Comment on above: Performed By: #### B MP, BNP #### [facility] [address] [place] [address] Dr. Leni Hamlin Hemoglobin (Bld) [Mass/Vol] 15.5 g/dL Normal 14.0-18.0 [facility] Comment on above: Performed By: #### B MP, BNP #### [facility] [address] [place] [address] Dr. Leni Hamlin IG # 0.16 10e3/ul Critically high 0.00-0.03 [facility] Comment on above: Performed By: #### B MP, BNP #### [facility] [address] [place] [address] Dr. Leni Hamlin IG % 0.9 % Critically high 0.0-0.5 [facility] Comment on above: Performed By: #### B MP, BNP #### [facility] [address] [address] [address] Leni Hamlin LYMPH # 1.8 103/ul Normal 1.2-3.8 [facility] Comment on above: Performed By: #### B MP, BNP #### [facility] [address] [place] [address] Dr. Leni Hamlin Lymphocytes/100 WBC (Bld) 9.7 % Critically low 20.5-60.0 [facility] Comment on above: Performed By: #### B MP, BNP #### [facility] [address] [place] [address] Dr. Leni Hamlin MANUAL DIFF REQ NO Normal [facility] Comment on above: Performed By: #### B MP, BNP #### [facility] [address] [place] [address] Dr. Leni Hamlin MCH (RBC) [Entitic mass] 29.2 pg Normal 25.9-34.0 [facility] Comment on above: Performed By: #### B MP, BNP #### [facility] [address] [place] [address] Dr. Leni Hamlin MCHC (RBC) [Mass/Vol] 33.0 g/dL Normal 29.9-35.2 [facility] Comment on above: Performed By: #### B MP, BNP #### [facility] [address] [place] [address] Dr. Leni Hamlin MCV (RBC) [Entitic vol] 88.3 fL Normal 80.0-94.0 [facility] Comment on above: Performed By: #### B MP, BNP #### [facility] [address] [place] [address] Dr. Leni Hamlin MONO # 1.4 103/ul Critically high 0.3-0.8 [facility] Comment on above: Performed By: #### B MP, BNP #### [facility] [address] [place] [address] Dr. Leni Hamlin Monocytes/100 WBC (Bld) 7.3 % Normal 1.7-12.0 [facility] Comment on above: Performed By: #### B MP, BNP #### [facility] [address] [place] [address] Dr. Leni Hamlin NEUT # 15.1 103/ul Critically high 1.4-6.5 [facility] Comment on above: Performed By: #### B MP, BNP #### [facility] [address] [place] [address] Dr. Leni Hamlin Neutrophils/100 WBC (Bld) 81.1 % Critically high 43.0-75.0 [facility] Comment on above: Performed By: #### B MP, BNP #### [facility] [address] [place] [address] Dr. Leni Hamlin Platelet mean volume (Bld) [Entitic vol] 10.0 fL Normal 9.5-13.5 [facility] Comment on above: Performed By: #### B MP, BNP #### [facility] [address] [place] [address] Dr. Lein Hamlin PLT 141 103/ul Critically low 150-450 [facility] Comment on above: Performed By: #### B MP, BNP #### [facility] [address] [place] [address] Dr. Leni Hamlin RBC 5.31 106/ul Normal 4.70-6.10 [facility] Comment on above: Performed By: #### B MP, BNP #### [facility] [address] [place] [address] Dr. Leni Hamlin WBC 18.7 103/ul Critically high 4.0-11.0 [facility] Comment on above: Performed By: #### B MP, BNP #### [facility] [address] [place] [address] Dr. Leni Hamlin CRPon 10-01-2022 CRP 16.0 mg/dL Critically high <=1.0 [facility] Comment on above: Performed By: #### C VDAGS #### [facility] [address] [address] [address] Leni Hamlin PROF 14(COMP METB)on 022 Albumin [Mass/Vol] 2.6 g/dL Critically low 3.4-5.0 [facility] Comment on above: Performed By: #### C MP, CRP #### [facility] [address] [address] [address] Leni Hamlin Albumin/Globulin [Mass ratio] 0.8 {ratio} Normal [facility] Comment on above: Performed By: #### C MP, CRP #### [facility] [address] [place] [address] Dr. Leni Hamlin ALP [Catalytic activity/Vol] 44 U/L Critically low 46-116 [facility] Comment on above: Performed By: #### C MP, CRP #### [facility] [address] [place] [address] Dr. Leni Hamlin ALT [Catalytic activity/Vol] 12 U/L Critically low 16-63 [facility] Comment on above: Performed By: #### C MP, CRP #### [facility] [address] [place] [address] Dr. Leni Hamlin Anion gap [Moles/Vol] 8.7 mmol/L Normal [facility] Comment on above: Performed By: #### C MP, CRP #### [facility] [address] [address] [address] Leni Hamlin AST [Catalytic activity/Vol] 10 U/L Critically low 15-37 [facility] Comment on above: Performed By: #### C MP, CRP #### [facility] [address] [address] [address] Leni Hamlin Bilirubin [Mass/Vol] 0.8 mg/dL Normal 0.2-1.0 [facility] Comment on above: Performed By: #### C MP, CRP #### [facility] [address] [place] [address] Dr. Leni Hamlin Calcium [Mass/Vol] 8.3 mg/dL Critically low 8.5-10.1 [facility] Comment on above: Performed By: #### C MP, CRP #### [facility] [address] [address] [address] Leni Hamlin Chloride [Moles/Vol] 103 mmol/L Normal 98-107 [facility] Comment on above: Performed By: #### C MP, CRP #### [facility] [address] [address] [address] Leni Hamlin CO2 [Moles/Vol] 28.2 mmol/L Normal 21.0-32.0 [facility] Comment on above: Performed By: #### C MP, CRP #### [facility] [address] [place] [address] Dr. Leni Hamlin Creatinine [Mass/Vol] 1.24 mg/dL Normal 0.70-1.30 [facility] Comment on above: Performed By: #### C MP, CRP #### [facility] [address] [place] [address] Dr. Leni Hamlin EGFR-AF ALGERIAN >60 Normal >=60 [facility] Comment on above: Performed By: #### C MP, CRP #### [facility] [address] [place] [address] Dr. Leni Hamlin EGFR-NON AF ALGERIAN 57 mL/min/1.73m2 Critically low >=60 [facility] Comment on above: Performed By: #### C MP, CRP #### [facility] [address] [place] [address] Dr. Leni Hamlin Globulin (S) [Mass/Vol] 3.2 g/dL Normal [facility] Comment on above: Performed By: #### C MP, CRP #### [facility] [address] [address] [address] Leni Hamlin Glucose [Mass/Vol] 111 mg/dL Critically high 74-106 [facility] Comment on above: Performed By: #### C MP, CRP #### [facility] [address] [place] [address] Dr. Leni Hamlin Potassium [Moles/Vol] 3.9 mmol/L Normal 3.5-5.1 [facility] Comment on above: Performed By: #### C MP, CRP #### [facility] [address] [place] [address] Dr. Leni Hamlin Protein [Mass/Vol] 5.8 g/dL Critically low 6.4-8.2 [facility] Comment on above: Performed By: #### C MP, CRP #### [facility] [address] [place] [address] Dr. Leni Hamlin Sodium [Moles/Vol] 136 mmol/L Normal 136-145 [facility] Comment on above: Performed By: #### C MP, CRP #### [facility] [address] [place] [address] Dr. Leni Hamlin Urea nitrogen [Mass/Vol] 17.0 mg/dL Normal 7.0-18.0 [facility] Comment on above: Performed By: #### C MP, CRP #### [facility] [address] [place] [address] Dr. Leni Hamlin Urea nitrogen/Creatinine [Mass ratio] 13.7 mg/mg Normal [facility] Comment on above: Performed By: #### C MP, CRP #### [facility] [address] [place] [address] Dr. Leni Hamlin C. DIFF PCRon 09-30-2022 C. DIFFICILE PCR Positive Critically abnormal NEGATIVE [facility] Comment on above: Performed By: #### C VDAGS #### [facility] [address] [place] [address] Dr. Leni Hamlin CBC AUTO DIFFon 09-30-2022 BASO # 0.0 103/ul Normal 0.0-0.1 [facility] Comment on above: Performed By: #### C BC #### [facility] [address] [place] [address] Dr. Leni Hamlin Basophils/100 WBC (Bld) 0.3 % Normal 0.2-2.0 [facility] Comment on above: Performed By: #### C BC #### [facility] [address] [place] [address] Dr. Leni Hamlin EO # 0.1 103/ul Normal 0.0-0.7 [facility] Comment on above: Performed By: #### C BC #### [facility] [address] [place] [address] Dr. Leni Hamlin Eosinophils/100 WBC (Bld) 0.8 % Critically low 0.9-7.0 [facility] Comment on above: Performed By: #### C BC #### [facility] [address] [place] [address] Dr. Leni Hamlin Erythrocyte distribution width (RBC) [Ratio] 13.4 % Normal 11.0-15.0 [facility] Comment on above: Performed By: #### C BC #### [facility] [address] [place] [address] Dr. Leni Hamlin Hematocrit (Bld) [Volume fraction] 50.4 % Normal 42.0-54.0 [facility] Comment on above: Performed By: #### C BC #### [facility] [address] [place] [address] Dr. Leni Hamlin Hemoglobin (Bld) [Mass/Vol] 16.2 g/dL Normal 14.0-18.0 [facility] Comment on above: Performed By: #### C BC #### [facility] [address] [place] [address] Dr. Leni Hamlin IG # 0.13 10e3/ul Critically high 0.00-0.03 [facility] Comment on above: Performed By: #### C BC #### [facility] [address] [place] [address] Dr. Leni Hamlin IG % 0.9 % Critically high 0.0-0.5 [facility] Comment on above: Performed By: #### C BC #### [facility] [address] [place] [address] Dr. Leni Hamlin LYMPH # 1.7 103/ul Normal 1.2-3.8 [facility] Comment on above: Performed By: #### C BC #### [facility] [address] [place] [address] Dr. Leni Hamlin Lymphocytes/100 WBC (Bld) 11.1 % Critically low 20.5-60.0 [facility] Comment on above: Performed By: #### C BC #### [facility] [address] [place] [address] Dr. Leni Hamlin MANUAL DIFF REQ NO Normal [facility] Comment on above: Performed By: #### C BC #### [facility] [address] [place] [address] Dr. Leni Hamlin MCH (RBC) [Entitic mass] 28.8 pg Normal 25.9-34.0 [facility] Comment on above: Performed By: #### C BC #### [facility] [address] [place] [address] Dr. Leni Hamlin MCHC (RBC) [Mass/Vol] 32.1 g/dL Normal 29.9-35.2 [facility] Comment on above: Performed By: #### C BC #### [facility] [address] [place] [address] Dr. Leni Hamlin MCV (RBC) [Entitic vol] 89.7 fL Normal 80.0-94.0 [facility] Comment on above: Performed By: #### C BC #### [facility] [address] [place] [address] Dr. Leni Hamlin MONO # 1.5 103/ul Critically high 0.3-0.8 [facility] Comment on above: Performed By: #### C BC #### [facility] [address] [place] [address] Dr. Leni Hamlin Monocytes/100 WBC (Bld) 9.8 % Normal 1.7-12.0 [facility] Comment on above: Performed By: #### C BC #### [facility] [address] [place] [address] Dr. Leni Hamlin NEUT # 11.7 103/ul Critically high 1.4-6.5 [facility] Comment on above: Performed By: #### C BC #### [facility] [address] [place] [address] Dr. Leni Hamlin Neutrophils/100 WBC (Bld) 77.1 % Critically high 43.0-75.0 [facility] Comment on above: Performed By: #### C BC #### [facility] [address] [address] [address] Leni Hamlin Platelet mean volume (Bld) [Entitic vol] 9.9 fL Normal 9.5-13.5 [facility] Comment on above: Performed By: #### C BC #### [facility] [address] [address] [address] Leni Hamlin PLT 156 103/ul Normal 150-450 [facility] Comment on above: Performed By: #### C BC #### [facility] [address] [place] [address] Dr. Leni Hamlin RBC 5.62 106/ul Normal 4.70-6.10 [facility] Comment on above: Performed By: #### C BC #### [facility] [address] [place] [address] Dr. Leni Hamlin WBC 15.2 103/ul Critically high 4.0-11.0 [facility] Comment on above: Performed By: #### C BC #### [facility] [address] [place] [address] Dr. Leni Hamlin CRPon 09-30-2022 CRP 7.6 mg/dL Critically high <=1.0 [facility] Comment on above: Performed By: #### C RP #### [facility] [address] [place] [address] Dr. Leni Hamlin PROF 14(COMP METB)on 022 Albumin [Mass/Vol] 2.8 g/dL Critically low 3.4-5.0 e [facility] Comment on above: Performed By: #### C RP #### [facility] [address] [place] [address] Dr. Leni Hamlin Albumin/Globulin [Mass ratio] 0.9 {ratio} Normal [facility] Comment on above: Performed By: #### C RP #### [facility] [address] [address] [address] Leni Hamlin ALP [Catalytic activity/Vol] 45 U/L Critically low 46-116 [facility] Comment on above: Performed By: #### C RP #### [facility] [address] [address] [address] Leni Hamlin ALT [Catalytic activity/Vol] 17 U/L Normal 16-63 [facility] Comment on above: Performed By: #### C RP #### [facility] [address] [address] [address] Leni Hamlin Anion gap [Moles/Vol] 8.4 mmol/L Normal [facility] Comment on above: Performed By: #### C RP #### [facility] [address] [address] [address] Leni Hamlin AST [Catalytic activity/Vol] 9 U/L Critically low 15-37 [facility] Comment on above: Performed By: #### C RP #### [facility] [address] [place] [address] Dr. Leni Hamlin Bilirubin [Mass/Vol] 0.6 mg/dL Normal 0.2-1.0 [facility] Comment on above: Performed By: #### C RP #### [facility] [address] [place] [address] Dr. Leni Hamlin Calcium [Mass/Vol] 8.6 mg/dL Normal 8.5-10.1 [facility] Comment on above: Performed By: #### C RP #### [facility] [address] [place] [address] Dr. Leni Hamlin Chloride [Moles/Vol] 104 mmol/L Normal 98-107 [facility] Comment on above: Performed By: #### C RP #### [facility] [address] [address] [address] Leni Hamlin CO2 [Moles/Vol] 29.6 mmol/L Normal 21.0-32.0 [facility] Comment on above: Performed By: #### C RP #### [facility] [address] [place] [address] Dr. Leni Hamlin Creatinine [Mass/Vol] 1.23 mg/dL Normal 0.70-1.30 [facility] Comment on above: Performed By: #### C RP #### [facility] [address] [address] [address] Leni Hamlin EGFR-AF ALGERIAN >60 Normal >=60 [facility] Comment on above: Performed By: #### C RP #### [facility] [address] [address] [address] Leni Hamlin EGFR-NON AF ALGERIAN 58 mL/min/1.73m2 Critically low >=60 [facility] Comment on above: Performed By: #### C RP #### [facility] [address] [address] [address] Leni Hamlin Globulin (S) [Mass/Vol] 3.0 g/dL Normal [facility] Comment on above: Performed By: #### C RP #### [facility] [address] [address] [address] Leni Hamlin Glucose [Mass/Vol] 113 mg/dL Critically high 74-106 T [facility] Comment on above: Performed By: #### C RP #### [facility] [address] [address] [address] Leni Hamlin Potassium [Moles/Vol] 4.0 mmol/L Normal 3.5-5.1 [facility] Comment on above: Performed By: #### C RP #### [facility] [address] [address] [address] Leni Hamlin Protein [Mass/Vol] 5.8 g/dL Critically low 6.4-8.2 Th [facility] Comment on above: Performed By: #### C RP #### [facility] [address] [address] [address] Leni Hamlin Sodium [Moles/Vol] 138 mmol/L Normal 136-145 [facility] Comment on above: Performed By: #### C RP #### [facility] [address] [address] [address] Leni Hamlin Urea nitrogen [Mass/Vol] 17.0 mg/dL Normal 7.0-18.0 [facility] Comment on above: Performed By: #### C RP #### [facility] [address] [place] [address] Dr. Leni Hamlin Urea nitrogen/Creatinine [Mass ratio] 13.8 mg/mg Normal [facility] Comment on above: Performed By: #### C RP #### [facility] [address] [place] [address] Dr. Leni Hamlin CBC AUTO DIFFon 09-29-2022 BASO # 0.1 103/ul Normal 0.0-0.1 [facility] Comment on above: Performed By: #### C VDAGS #### [facility] [address] [place] [address] Dr. Leni Hamlin Basophils/100 WBC (Bld) 0.4 % Normal 0.2-2.0 [facility] Comment on above: Performed By: #### C VDAGS #### [facility] [address] [place] [address] Dr. Leni Hamlin EO # 0.1 103/ul Normal 0.0-0.7 [facility] Comment on above: Performed By: #### C VDAGS #### [facility] [address] [place] [address] Dr. Leni Hamlin Eosinophils/100 WBC (Bld) 0.9 % Normal 0.9-7.0 [facility] Comment on above: Performed By: #### C VDAGS #### [facility] [address] [place] [address] Dr. Leni Hamlin Erythrocyte distribution width (RBC) [Ratio] 13.2 % Normal 11.0-15.0 [facility] Comment on above: Performed By: #### C VDAGS #### [facility] [address] [place] [address] Dr. Leni Hamlin Hematocrit (Bld) [Volume fraction] 53.1 % Normal 42.0-54.0 [facility] Comment on above: Performed By: #### C VDAGS #### [facility] [address] [place] [address] Dr. Leni Hamlin Hemoglobin (Bld) [Mass/Vol] 17.3 g/dL Normal 14.0-18.0 [facility] Comment on above: Performed By: #### C VDAGS #### [facility] [address] [address] [address] Leni Hamlin IG # 0.30 10e3/ul Critically high 0.00-0.03 [facility] Comment on above: Performed By: #### C VDAGS #### [facility] [address] [address] [address] Leni Hamlin IG % 2.2 % Critically high 0.0-0.5 [facility] Comment on above: Performed By: #### C VDAGS #### [facility] [address] [address] [address] Leni Hamlin LYMPH # 1.5 103/ul Normal 1.2-3.8 [facility] Comment on above: Performed By: #### C VDAGS #### [facility] [address] [place] [address] Dr. Leni Hamlin Lymphocytes/100 WBC (Bld) 10.5 % Critically low 20.5-60.0 [facility] Comment on above: Performed By: #### C VDAGS #### [facility] [address] [place] [address] Dr. Leni Hamlin MANUAL DIFF REQ NO Normal [facility] Comment on above: Performed By: #### C VDAGS #### [facility] [address] [place] [address] Dr. Leni Hamlin MCH (RBC) [Entitic mass] 29.0 pg Normal 25.9-34.0 [facility] Comment on above: Performed By: #### C VDAGS #### [facility] [address] [place] [address] Dr. Leni Hamlin MCHC (RBC) [Mass/Vol] 32.6 g/dL Normal 29.9-35.2 [facility] Comment on above: Performed By: #### C VDAGS #### [facility] [address] [place] [address] Dr. Leni Hamlin MCV (RBC) [Entitic vol] 88.9 fL Normal 80.0-94.0 [facility] Comment on above: Performed By: #### C VDAGS #### [facility] [address] [address] [address] Leni Hamlin MONO # 0.8 103/ul Normal 0.3-0.8 [facility] Comment on above: Performed By: #### C VDAGS #### [facility] [address] [place] [address] Dr. Leni Hamlin Monocytes/100 WBC (Bld) 6.0 % Normal 1.7-12.0 [facility] Comment on above: Performed By: #### C VDAGS #### [facility] [address] [place] [address] Dr. Leni Hamlin NEUT # 11.2 103/ul Critically high 1.4-6.5 [facility] Comment on above: Performed By: #### C VDAGS #### [facility] [address] [place] [address] Dr. Leni Hamlin Neutrophils/100 WBC (Bld) 80.0 % Critically high 43.0-75.0 [facility] Comment on above: Performed By: #### C VDAGS #### [facility] [address] [place] [address] Dr. Leni Hamlin Platelet mean volume (Bld) [Entitic vol] 9.6 fL Normal 9.5-13.5 [facility] Comment on above: Performed By: #### C VDAGS #### [facility] [address] [place] [address] Dr. Leni Hamlin PLT 186 103/ul Normal 150-450 [facility] Comment on above: Performed By: #### C VDAGS #### [facility] [address] [place] [address] Dr. Leni Hamlin RBC 5.97 106/ul Normal 4.70-6.10 [facility] Comment on above: Performed By: #### C VDAGS #### [facility] [address] [place] [address] Dr. Leni Hamlin WBC 13.9 103/ul Critically high 4.0-11.0 [facility] Comment on above: Performed By: #### C VDAGS #### [facility] [address] ABD/PELV W CONon [...] RAJESH CHACON Date: 2022-09-29 12:51 Normal [facility]on 09-11 SARS-CoV-2 (COVID-19) RNA VENESSA+probe Ql (Unsp spec) Not detected Normal NOT DETECTED [facility] Comment on above: Result Comment: [...] for this test is supported by the Loan Operations Specialist of Health and Human Service's declaration that [...] Performed By: #### B MP, BNP #### [facility] [address] [place] [address] Dr. Leni Hamlin GI PANEL (PCR)on 09-29-2022 Adenovirus F 40/41 Not detected Normal NOT DETECTED [facility] Comment on above: Performed By: #### C RP #### [facility] [address] [place] [address] Dr. Leni Hamlin Astrovirus Not detected Normal NOT DETECTED [facility] Comment on above: Performed By: #### C RP #### [facility] [address] [place] [address] Dr. Leni Duvall. Diff toxin A/B Not detected Normal NOT DETECTED [facility] Comment on above: Performed By: #### C RP #### [facility] [address] [place] [address] Dr. Leni Hamlin Campylobacter Not detected Normal NOT DETECTED [facility] Comment on above: Performed By: #### C RP #### [facility] [address] [place] [address] Dr. Leni Hamlin Cryptosporidium Not detected Normal NOT DETECTED [facility] Comment on above: Performed By: #### C RP #### [facility] [address] [place] [address] Dr. Leni Hamlin Cyclos. Cayetanensis Not detected Normal NOT DETECTED [facility] Comment on above: Performed By: #### C RP #### [facility] [address] [place] [address] Dr. Leni Hamlin E. Coli O157 Not Applicable Normal Not Applicable [facility] Comment on above: Performed By: #### C RP #### [facility] [address] [place] [address] Dr. Leni Hamlin E. histolytica Not detected Normal NOT DETECTED [facility] Comment on above: Performed By: #### C RP #### [facility] [address] [place] [address] Dr. Leni Hamlin EAEC Not detected Normal NOT DETECTED [facility] Comment on above: Performed By: #### C RP #### [facility] [address] [place] [address] Dr. Leni Hamlin EIEC Not detected Normal NOT DETECTED [facility] Comment on above: Performed By: #### C RP #### [facility] [address] [place] [address] Dr. Leni Hamlin EPEC Not detected Normal NOT DETECTED [facility] Comment on above: Performed By: #### C RP #### [facility] [address] [place] [address] Dr. Leni Hamlin ETEC Not detected Normal NOT DETECTED [facility] Comment on above: Performed By: #### C RP #### [facility] [address] [place] [address] Dr. Leni Hamlin G. Lamblia Not detected Normal NOT DETECTED [facility] Comment on above: Performed By: #### C RP #### [facility] [address] [place] [address] Dr. Leni TEJEDA CONTROLS PASSED Normal [facility] Comment on above: Performed By: #### C RP #### [facility] [address] [place] [address] Dr. Leni KRISHNAMURTHY HEADER GI PANEL BACTERIA Normal T [facility] Comment on above: Performed By: #### C RP #### [facility] [address] [place] [address] Dr. Leni KAMARA ECOLI GI PANEL DIARRHEAGEN IC E.COLI / SHIGELLA Normal [facility] Comment on above: Performed By: #### C RP #### [facility] [address] [place] [address] Dr. Leni KAMARA INFO SEE BELOW [facility] Comment on above: Result Comment: EAEC - Enteroaggregative E. Coli EPEC- Enteropathogenic E. Coli ETEC- Enterotoxigenic E. Coli lt/st STEC- Shigella-like toxin-producing E. Coli stx1/stx2 EIEC- Shigella/Enteroinvasive E. Coli Performed By: #### C RP #### [facility] [address] [place] [address] Dr. Leni KAMARA PARASITES GI PANEL PARASITES Normal [facility] Comment on above: Performed By: #### C RP #### [facility] [address] [place] [address] Dr. Leni KAMARA VIRUS GI PANEL VIRUSES Normal [facility] Comment on above: Performed By: #### C RP #### [facility] [address] [place] [address] Dr. Leni Hamlin Norovirus GI/GII Not detected Normal NOT DETECTED [facility] Comment on above: Performed By: #### C RP #### [facility] [address] [place] [address] Dr. Leni Hamlin P. Shigelloides Not detected Normal NOT DETECTED [facility] Comment on above: Performed By: #### C RP #### [facility] [address] [place] [address] Dr. Leni Hamlin Rotavirus A Not detected Normal NOT DETECTED [facility] Comment on above: Performed By: #### C RP #### [facility] [address] [place] [address] Dr. Leni Hamlin Salmonella Not detected Normal NOT DETECTED [facility] Comment on above: Performed By: #### C RP #### [facility] [address] [place] [address] Dr. Leni Hamlin Sapovirus Not detected Normal NOT DETECTED [facility] Comment on above: Performed By: #### C RP #### [facility] [address] [place] [address] Dr. Leni Hamlin STEC Not detected Normal NOT DETECTED [facility] Comment on above: Performed By: #### C RP #### [facility] [address] [place] [address] Dr. Leni Hamlin Vibrio Not detected Normal NOT DETECTED [facility] Comment on above: Performed By: #### C RP #### [facility] [address] [place] [address] Dr. Leni Hamlin Vibrio Cholera Not detected Normal NOT DETECTED [facility] Comment on above: Performed By: #### C RP #### [facility] [address] [place] [address] Dr. Leni Hamlin Y. Enterocolitica Not detected Normal NOT DETECTED [facility] Comment on above: Performed By: #### C RP #### [facility] [address] [place] [address] Dr. Leni Hamlin PROF CHEM 8 (BAS METB)on Anion gap [Moles/Vol] 5.8 mmol/L Normal [facility] Comment on above: Performed By: #### C VDAGS #### [facility] [address] [place] [address] Dr. Leni Hamlin Calcium [Mass/Vol] 9.0 mg/dL Normal 8.5-10.1 [facility] Comment on above: Performed By: #### C VDAGS #### [facility] [address] [place] [address] Dr. Leni Hamlin Chloride [Moles/Vol] 103 mmol/L Normal 98-107 [facility] Comment on above: Performed By: #### C VDAGS #### [facility] [address] [place] [address] Dr. Leni Hamlin CO2 [Moles/Vol] 31.7 mmol/L Normal 21.0-32.0 [facility] Comment on above: Performed By: #### C VDAGS #### [facility] [address] [place] [address] Dr. Leni Hamlin Creatinine [Mass/Vol] 1.28 mg/dL Normal 0.70-1.30 [facility] Comment on above: Performed By: #### C VDAGS #### [facility] [address] [place] [address] Dr. Leni Hamlin EGFR-AF ALGERIAN >60 Normal >=60 [facility] Comment on above: Performed By: #### C VDAGS #### [facility] [address] [place] [address] Dr. Leni Hamlin EGFR-NON AF ALGERIAN 55 mL/min/1.73m2 Critically low >=60 [facility] Comment on above: Performed By: #### C VDAGS #### [facility] [address] [place] [address] Dr. Leni Hamlin Glucose [Mass/Vol] 130 mg/dL Critically high 74-106 T [facility] Comment on above: Performed By: #### C VDAGS #### [facility] [address] [place] [address] Dr. Leni Hamlin Potassium [Moles/Vol] 4.5 mmol/L Normal 3.5-5.1 [facility] Comment on above: Performed By: #### C VDAGS #### [facility] [address] [place] [address] Dr. Leni Hamlin Sodium [Moles/Vol] 136 mmol/L Normal 136-145 [facility] Comment on above: Performed By: #### C VDAGS #### [facility] [address] [place] [address] Dr. Leni Hamlin Urea nitrogen [Mass/Vol] 23.0 mg/dL Critically high 7.0-18.0 [facility] Comment on above: Performed By: #### C VDAGS #### [facility] [address] [place] [address] Dr. Leni Hamlin Urea nitrogen/Creatinine [Mass ratio] 18.0 mg/mg Normal [facility] Comment on above: Performed By: #### C VDAGS #### [facility] [address] [place] [address] Dr. Leni Hamlin Covid-19 PCR ([facility])on 08-13 SARS-CoV-2 (COVID-19) RNA VENESSA+probe Ql (Unsp spec) Not detected Normal NOT DETECTED [facility] Comment on above: Result Comment: [...] for this test is supported by the Loan Operations Specialist of Health and Human Service's declaration that [...] Performed By: #### C MP, CRP #### [facility] [address] [address] [address] Leni Hamlin Covid-19 PCR ([facility])on 05-11 SARS-CoV-2 (COVID-19) RNA VENESSA+probe Ql (Unsp spec) Detected Critically abnormal NOT DETECTED [facility] Comment on above: Result Comment: This test is not yet approved or cleared by the [place] FDA. When there are no FDA-approved or cleared tests available, and other criteria are met, FDA can make tests available under an emergency access mechanism called an Emergency Use Authorization (EUA). The EUA for this test is supported by the [place] of Health and Human Service's (HHS's) declaration [...] used). Performed By: #### C RP #### [facility] [address] [place] [address] Dr. Leni Hamlin Covid-19 PCR ([facility])on 04-11 SARS-CoV-2 (COVID-19) RNA VENESSA+probe Ql (Unsp spec) Not detected Normal NOT DETECTED [facility] Comment on above: Result Comment: This test is not yet approved or cleared by the [place] FDA. When there are no FDA-approved or cleared tests available, and other criteria are met, FDA can make tests available under an emergency access mechanism called an Emergency Use Authorization (EUA). The EUA for this test is supported by the [place] of Health and Human Service's (HHS's) declaration [...] SARS-CoV-2. Performed By: #### C VDTB #### [facility] [address] [address] [address] Leni Hamlin SYMPTOMATIC COVID-19 ANTIGEN on 04-23-2022 EUA Statement SEE BELOW Normal [facility] Comment on above: Result Comment: This [...] sooner. Performed By: #### C VDAGS #### [facility] [address], [place] [address] Dr. Leni Hamlin SARS-CoV-2 (COVID-19) RNA VENESSA+probe Ql (Unsp spec) Negative Normal NEGATIVE [facility] Comment on above: Performed By: #### C VDAGS #### [facility] [address], [place] [address] Dr. Leni Hamlin Cardiovascular Lab Reporton 03-22-2022 Cardiovascular Lab Report [facility] Patient Name: [facility] A MR #: [id number] Department of Physician: Modesto Sinhg MD Medicine Service Date: 03/22/2022 Division of Birthdate: 1950 Cardiology Room #: [facility] [address] [place] [address] Cardiovascular Laboratory Report PACEMAKER IMPLANT PROCEDURE NOTE [...] using modified seldinger technique using a 5 [place] micro-puncture needle on two occasions and 0.35 [...] pocket was created for the device. 6 [place]ian Safesheaths were placed over the wire. An active fixation Biotronik pacing lead was then delivered through the 6Fsheath to the right ventricle. After confirmation of lead position on orthogonal views (RUBALCAVA and UGANDAN) to confirm septal position, the screw was [...] lead position on orthogonal views (RUBALCAVA and UGANDAN), the screw was activated. After confirmation of [...] Device info: Biotronik Edora Model# 8DR-T Serial# [id number] RA lead: Model# Biotronik Solia S45 Serial# [id number] Sensin.5mV Threshold: 0.6V@0.5ms Impedance: 507 Ohms RV lead: Model# Biotronik Solia S53 Serial# [id number] Sensin.5mV Threshold: 0.6V@0.4ms Impedance: 663 Ohms POST [...] El (more content not included)... Normal [facility] SPUTUM CULTUREon 03-17-2022 Epithelial cells LM Ql (Urine sed) Few Normal [facility] Comment on above: Performed By: #### B MP, BNP #### [facility] [address] [place] [address] Dr. Leni Hamlin Gram Stain Evaluation Comment Normal [facility] Comment on above: Result Comment: This specimen is of good quality and is acceptable for routine bacterial culture. Performed By: #### B MP, BNP #### [facility] [address] [address] [address] Leni Hamlin Lower Respiratory Culture Final report Normal [facility] Comment on above: Performed By: #### B MP, BNP #### [facility] [address] [place] [address] Dr. Leni Hamlin Result 1 Comment Normal [facility] Comment on above: Result Comment: Few gram negative rods. Performed By: #### B MP, BNP #### [facility] [address] [place] [address] Dr. Leni Hamlin Result Comment: Rout ine respiratory bola Result 2 Comment Normal [facility] Comment on above: Result Comment: Few gram positive cocci Performed By: #### B MP, BNP #### [facility] [address] [place] [address] Dr. Lein Hamlin Result 3 Comment Normal [facility] Comment on above: Result Comment: Rare gram positive rods Performed By: #### B MP, BNP #### [facility] [address] [place] [address] Dr. Leni Hamlin Result 4 Normal [facility] Comment on above: Performed By: #### B MP, BNP #### [facility] [address] [place] [address] Dr. Leni Hamlin White Blood Cells Few Normal [facility] Comment on above: Performed By: #### B MP, BNP #### [facility] [address] [place] [address] Dr. Leni Hamlin BNPon 03-15-2022 Natriuretic peptide B (Bld) [Mass/Vol] 429.0 pg/mL Normal <=900.0 [facility] Comment on above: Performed By: #### C MP, CRP #### [facility] [address] [place] [address] Dr. Leni Hamlin CBC AUTO DIFFon 03-15-2022 BASO # 0.0 103/ul Normal 0.0-0.1 [facility] Comment on above: Performed By: #### C VDAGS #### [facility] [address] [place] [address] Dr. Leni Hamlin Basophils/100 WBC (Bld) 0.2 % Normal 0.2-2.0 [facility] Comment on above: Performed By: #### C VDAGS #### [facility] [address] [place] [address] Dr. Leni Hamlin EO # 0.0 103/ul Normal 0.0-0.7 [facility] Comment on above: Performed By: #### C VDAGS #### [facility] [address] [place] [address] Dr. Leni Hamlin Eosinophils/100 WBC (Bld) 0.0 % Critically low 0.9-7.0 [facility] Comment on above: Performed By: #### C VDAGS #### [facility] [address] [place] [address] Dr. Leni Hamlin Erythrocyte distribution width (RBC) [Ratio] 13.6 % Normal 11.0-15.0 [facility] Comment on above: Performed By: #### C VDAGS #### [facility] [address] [place] [address] Dr. Leni Hamlin Hematocrit (Bld) [Volume fraction] 44.5 % Normal 42.0-54.0 [facility] Comment on above: Performed By: #### C VDAGS #### [facility] [address] [place] [address] Dr. Leni Hamlin Hemoglobin (Bld) [Mass/Vol] 13.8 g/dL Critically low 14.0-18.0 [facility] Comment on above: Performed By: #### C VDAGS #### [facility] [address] [place] [address] Dr. Leni Hamlin IG # 0.35 10e3/ul Critically high 0.00-0.03 [facility] Comment on above: Performed By: #### C VDAGS #### [facility] [address] [place] [address] Dr. Leni Hamlin IG % 2.4 % Critically high 0.0-0.5 [facility] Comment on above: Performed By: #### C VDAGS #### [facility] [address] [place] [address] Dr. Leni Hamlin LYMPH # 0.6 103/ul Critically low 1.2-3.8 [facility] Comment on above: Performed By: #### C VDAGS #### [facility] [address] [place] [address] Dr. Leni Hamlin Lymphocytes/100 WBC (Bld) 4.1 % Critically low 20.5-60.0 [facility] Comment on above: Performed By: #### C VDAGS #### [facility] [address] [place] [address] Dr. Leni Hamlin MANUAL DIFF REQ NO Normal [facility] Comment on above: Performed By: #### C VDAGS #### [facility] [address] [place] [address] Dr. Leni Hamlin MCH (RBC) [Entitic mass] 29.4 pg Normal 25.9-34.0 [facility] Comment on above: Performed By: #### C VDAGS #### [facility] [address] [place] [address] Dr. Leni Hamlin MCHC (RBC) [Mass/Vol] 31.0 g/dL Normal 29.9-35.2 [facility] Comment on above: Performed By: #### C VDAGS #### [facility] [address] [place] [address] Dr. Leni Hamlin MCV (RBC) [Entitic vol] 94.7 fL Critically high 80.0-94.0 [facility] Comment on above: Performed By: #### C VDAGS #### [facility] [address] [address] [address] Leni Hamlin MONO # 0.7 103/ul Normal 0.3-0.8 [facility] Comment on above: Performed By: #### C VDAGS #### [facility] [address] [place] [address] Dr. Leni Hamlin Monocytes/100 WBC (Bld) 4.7 % Normal 1.7-12.0 [facility] Comment on above: Performed By: #### C VDAGS #### [facility] [address] [place] [address] Dr. Leni Hamlin NEUT # 12.9 103/ul Critically high 1.4-6.5 [facility] Comment on above: Performed By: #### C VDAGS #### [facility] [address] [place] [address] Dr. Leni Hamlin Neutrophils/100 WBC (Bld) 88.6 % Critically high 43.0-75.0 [facility] Comment on above: Performed By: #### C VDAGS #### [facility] [address] [place] [address] Dr. Leni Hamlin Platelet mean volume (Bld) [Entitic vol] 10.2 fL Normal 9.5-13.5 [facility] Comment on above: Performed By: #### C VDAGS #### [facility] [address] [place] [address] Dr. Leni Hamlin PLT 176 103/ul Normal 150-450 [facility] Comment on above: Performed By: #### C VDAGS #### [facility] [address] [place] [address] Dr. Leni Hamlin RBC 4.70 106/ul Normal 4.70-6.10 [facility] Comment on above: Performed By: #### C VDAGS #### [facility] [address] [place] [address] Dr. Leni Hamlin WBC 14.6 103/ul Critically high 4.0-11.0 [facility] Comment on above: Performed By: #### C VDAGS #### [facility] [address] [address] [address] Leni Hamlin PROF CHEM 8 (BAS METB)on Anion gap [Moles/Vol] 10.2 mmol/L Normal [facility] Comment on above: Performed By: #### C MP, CRP #### [facility] [address] [place] [address] Dr. Leni Hamlin Calcium [Mass/Vol] 8.0 mg/dL Critically low 8.5-10.1 [facility] Comment on above: Performed By: #### C MP, CRP #### [facility] [address] [place] [address] Dr. Leni Hamlin Chloride [Moles/Vol] 104 mmol/L Normal 98-107 [facility] Comment on above: Performed By: #### C MP, CRP #### [facility] [address] [place] [address] Dr. Leni Hamlin CO2 [Moles/Vol] 28.2 mmol/L Normal 21.0-32.0 [facility] Comment on above: Performed By: #### C MP, CRP #### [facility] [address] [place] [address] Dr. Leni Hamlin Creatinine [Mass/Vol] 1.36 mg/dL Critically high 0.70-1.30 [facility] Comment on above: Performed By: #### C MP, CRP #### [facility] [address] [place] [address] Dr. Leni Hamlin EGFR-AF ALGERIAN >60 Normal >=60 [facility] Comment on above: Performed By: #### C MP, CRP #### [facility] [address] [place] [address] Dr. Leni Hamlin EGFR-NON AF ALGERIAN 51 mL/min/1.73m2 Critically low >=60 [facility] Comment on above: Performed By: #### C MP, CRP #### [facility] [address] [place] [address] Dr. Leni Hamlin Glucose [Mass/Vol] 205 mg/dL Critically high 74-106 T [facility] Comment on above: Performed By: #### C MP, CRP #### [facility] [address] [place] [address] Dr. Leni Hamlin Potassium [Moles/Vol] 4.4 mmol/L Normal 3.5-5.1 [facility] Comment on above: Performed By: #### C MP, CRP #### [facility] [address] [place] [address] Dr. Leni Hamlin Sodium [Moles/Vol] 138 mmol/L Normal 136-145 [facility] Comment on above: Performed By: #### C MP, CRP #### [facility] [address] [place] [address] Dr. Leni Hamlin Urea nitrogen [Mass/Vol] 29.0 mg/dL Critically high 7.0-18.0 [facility] Comment on above: Performed By: #### C MP, CRP #### [facility] [address] [place] [address] Dr. Leni Hamlin Urea nitrogen/Creatinine [Mass ratio] 21.3 mg/mg Normal [facility] Comment on above: Performed By: #### C MP, CRP #### [facility] [address] [place] [address] Dr. Leni Hamlin BNPon 03-14-2022 Natriuretic peptide B (Bld) [Mass/Vol] 337.0 pg/mL Normal <=900.0 [facility] Comment on above: Performed By: #### C RP #### [facility] [address] [place] [address] Dr. Leni Hamlin CBC AUTO DIFFon 03-14-2022 BASO # 0.0 103/ul Normal 0.0-0.1 [facility] Comment on above: Performed By: #### C MP, CRP #### [facility] [address] [place] [address] Dr. Leni Hamlin Basophils/100 WBC (Bld) 0.2 % Normal 0.2-2.0 [facility] Comment on above: Performed By: #### C MP, CRP #### [facility] [address] [place] [address] Dr. Leni Hamlin EO # 0.0 103/ul Normal 0.0-0.7 [facility] Comment on above: Performed By: #### C MP, CRP #### [facility] [address] [place] [address] Dr. Leni Hamlin Eosinophils/100 WBC (Bld) 0.0 % Critically low 0.9-7.0 [facility] Comment on above: Performed By: #### C MP, CRP #### [facility] [address] [place] [address] Dr. Leni Hamlin Erythrocyte distribution width (RBC) [Ratio] 13.6 % Normal 11.0-15.0 [facility] Comment on above: Performed By: #### C MP, CRP #### [facility] [address] [place] [address] Dr. Leni Hamlin Hematocrit (Bld) [Volume fraction] 47.8 % Normal 42.0-54.0 [facility] Comment on above: Performed By: #### C MP, CRP #### [facility] [address] [place] [address] Dr. Leni Hamlin Hemoglobin (Bld) [Mass/Vol] 14.6 g/dL Normal 14.0-18.0 [facility] Comment on above: Performed By: #### C MP, CRP #### [facility] [address] [place] [address] Dr. Leni Hamlin IG # 0.22 10e3/ul Critically high 0.00-0.03 [facility] Comment on above: Performed By: #### C MP, CRP #### [facility] [address] [place] [address] Dr. Leni Hamlin IG % 1.3 % Critically high 0.0-0.5 [facility] Comment on above: Performed By: #### C MP, CRP #### [facility] [address] [place] [address] Dr. Lein Hamlin LYMPH # 0.5 103/ul Critically low 1.2-3.8 [facility] Comment on above: Performed By: #### C MP, CRP #### [facility] [address] [place] [address] Dr. Leni Hamlin Lymphocytes/100 WBC (Bld) 2.9 % Critically low 20.5-60.0 [facility] Comment on above: Performed By: #### C MP, CRP #### [facility] [address] [place] [address] Dr. Leni Hamlin MANUAL DIFF REQ NO Normal [facility] Comment on above: Performed By: #### C MP, CRP #### [facility] [address] [place] [address] Dr. Leni Hamlin MCH (RBC) [Entitic mass] 29.4 pg Normal 25.9-34.0 [facility] Comment on above: Performed By: #### C MP, CRP #### [facility] [address] [place] [address] Dr. Leni Hamlin MCHC (RBC) [Mass/Vol] 30.5 g/dL Normal 29.9-35.2 [facility] Comment on above: Performed By: #### C MP, CRP #### [facility] [address] [place] [address] Dr. Leni Hamlin MCV (RBC) [Entitic vol] 96.4 fL Critically high 80.0-94.0 [facility] Comment on above: Performed By: #### C MP, CRP #### [facility] [address] [place] [address] Dr. Leni Hamlin MONO # 1.1 103/ul Critically high 0.3-0.8 [facility] Comment on above: Performed By: #### C MP, CRP #### [facility] [address] [place] [address] Dr. Leni Hamlin Monocytes/100 WBC (Bld) 6.4 % Normal 1.7-12.0 [facility] Comment on above: Performed By: #### C MP, CRP #### [facility] [address] [place] [address] Dr. Leni Hamlin NEUT # 15.2 103/ul Critically high 1.4-6.5 [facility] Comment on above: Performed By: #### C MP, CRP #### [facility] [address] [address] [address] Leni Hamlin Neutrophils/100 WBC (Bld) 89.2 % Critically high 43.0-75.0 [facility] Comment on above: Performed By: #### C MP, CRP #### [facility] [address] [address] [address] Leni Hamlin Platelet mean volume (Bld) [Entitic vol] 10.4 fL Normal 9.5-13.5 [facility] Comment on above: Performed By: #### C MP, CRP #### [facility] [address] [address] [address] Leni Hamlin PLT 167 103/ul Normal 150-450 [facility] Comment on above: Performed By: #### C MP, CRP #### [facility] [address] [place] [address] Dr. Leni Hamlin RBC 4.96 106/ul Normal 4.70-6.10 [facility] Comment on above: Performed By: #### C MP, CRP #### [facility] [address] [address] [address] Leni Hamlin WBC 17.0 103/ul Critically high 4.0-11.0 [facility] Comment on above: Performed By: #### C MP, CRP #### [facility] [address] [address] [address] Leni Hamlin PROF CHEM 8 (BAS METB)on Anion gap [Moles/Vol] 7.0 mmol/L Normal [facility] Comment on above: Performed By: #### C VDAGS #### [facility] [address] [address] [address] Leni Hamlin Calcium [Mass/Vol] 8.3 mg/dL Critically low 8.5-10.1 [facility] Comment on above: Performed By: #### C VDAGS #### [facility] [address] [address] [address] Leni Hamlin Chloride [Moles/Vol] 102 mmol/L Normal 98-107 [facility] Comment on above: Performed By: #### C VDAGS #### [facility] [address] [place] [address] Dr. Leni Hamlin CO2 [Moles/Vol] 29.6 mmol/L Normal 21.0-32.0 [facility] Comment on above: Performed By: #### C VDAGS #### [facility] [address] [place] [address] Dr. Leni Hamlin Creatinine [Mass/Vol] 1.48 mg/dL Critically high 0.70-1.30 [facility] Comment on above: Performed By: #### C VDAGS #### [facility] [address] [place] [address] Dr. Leni Hamlin EGFR-AF ALGERIAN 56 mL/min/1.73m2 Critically low >=60 [facility] Comment on above: Performed By: #### C VDAGS #### [facility] [address] [place] [address] Dr. Leni Hamlin EGFR-NON AF ALGERIAN 47 mL/min/1.73m2 Critically low >=60 [facility] Comment on above: Performed By: #### C VDAGS #### [facility] [address] [place] [address] Dr. Leni Hamlin Glucose [Mass/Vol] 168 mg/dL Critically high 74-106 [facility] Comment on above: Performed By: #### C VDAGS #### [facility] [address] [place] [address] Dr. Leni Hamlin Potassium [Moles/Vol] 4.6 mmol/L Normal 3.5-5.1 [facility] Comment on above: Performed By: #### C VDAGS #### [facility] [address] [place] [address] Dr. Leni Hamlin Sodium [Moles/Vol] 134 mmol/L Critically low 136-145 Th [facility] Comment on above: Performed By: #### C VDAGS #### [facility] [address] [place] [address] Dr. Leni Hamlin Urea nitrogen [Mass/Vol] 29.0 mg/dL Critically high 7.0-18.0 [facility] Comment on above: Performed By: #### C VDAGS #### [facility] [address] [place] [address] Dr. Leni Hamlin Urea nitrogen/Creatinine [Mass ratio] 19.6 mg/mg Normal [facility] Comment on above: Performed By: #### C VDAGS #### [facility] [address] [place] [address] Dr. Leni Hamlin BNPon 03-13-2022 Natriuretic peptide B (Bld) [Mass/Vol] 501.0 pg/mL Normal <=900.0 [facility] Comment on above: Performed By: #### B MP, BNP #### [facility] [address] [place] [address] Dr. Leni Hamlin CBC W MANUAL DIFFon 03-13-20 22 ATYPICAL LYMPH # Normal [facility] Comment on above: Performed By: #### C VDAGS #### [facility] [address] [place] [address] Dr. Leni Hamlin ATYPICAL LYMPH % Normal [facility] Comment on above: Performed By: #### C VDAGS #### [facility] [address] [place] [address] Dr. Leni Hamlin BAND # 2.1 103/ul Critically high 0.0-0.3 [facility] Comment on above: Performed By: #### C VDAGS #### [facility] [address] [place] [address] Dr. Leni Hamlin BAND % 12 % Critically high 0-5 [facility] Comment on above: Performed By: #### C VDAGS #### [facility] [address] [place] [address] Dr. Leni Hamlin BASOM # 0.00 103/ul Normal 0.00-0.10 [facility] Comment on above: Performed By: #### C VDAGS #### [facility] [address] [place] [address] Dr. Leni Hamlin BASOM % 0.0 % Critically low 0.2-2.0 [facility] Comment on above: Performed By: #### C VDAGS #### [facility] [address] [place] [address] Dr. Leni Hamlin BLAST # Normal [facility] Comment on above: Performed By: #### C VDAGS #### [facility] [address] [place] [address] Dr. Leni Hamlin BLAST % Normal [facility] Comment on above: Performed By: #### C VDAGS #### [facility] [address] [place] [address] Dr. Leni Hamlin CORRECTED WBC Normal 4.0-11.0 [facility] Comment on above: Performed By: #### C VDAGS #### [facility] [address] [place] [address] Dr. Leni Hamlin EOS # 0.00 103/ul Normal 0.00-0.70 [facility] Comment on above: Performed By: #### C VDAGS #### [facility] [address] [place] [address] Dr. Leni Hamlin EOS% 0.0 % Critically low 0.9-7.0 [facility] Comment on above: Performed By: #### C VDAGS #### [facility] [address] [place] [address] Dr. Leni Hamlin HCT 51.2 % Normal 42.0-54.0 [facility] Comment on above: Performed By: #### C VDAGS #### [facility] [address] [place] [address] Dr. Leni Hamlin HGB 15.4 g/dl Normal 14.0-18.0 [facility] Comment on above: Performed By: #### C VDAGS #### [facility] [address] [place] [address] Dr. Leni Hamlin LYMPHM # 0.52 103/ul Critically low 1.20-3.80 [facility] Comment on above: Performed By: #### C VDAGS #### [facility] [address] [place] [address] Dr. Leni Hamlin LYMPHM% 3.0 % Critically low 20.5-60.0 [facility] Comment on above: Performed By: #### C VDAGS #### [facility] [address] [place] [address] Dr. Leni Hamlin MCH 29.6 pg Normal 25.9-34.0 [facility] Comment on above: Performed By: #### C VDAGS #### [facility] [address] [place] [address] Dr. Leni Hamlin MCHC 30.1 g/dl Normal 29.9-35.2 [facility] Comment on above: Performed By: #### C VDAGS #### [facility] [address] [place] [address] Dr. Leni Hamlin MCV 98.5 fL Critically high 80.0-94.0 [facility] Comment on above: Performed By: #### C VDAGS #### [facility] [address] [place] [address] Dr. Leni Hamlin METAMYELOCYTE # Normal [facility] Comment on above: Performed By: #### C VDAGS #### [facility] [address] [place] [address] Dr. Leni Hamlin METAMYELOCYTE % Normal [facility] Comment on above: Performed By: #### C VDAGS #### [facility] [address] [place] [address] Dr. Leni Hamlin MONOM# 0.86 103/ul Critically high 0.30-0.80 [facility] Comment on above: Performed By: #### C VDAGS #### [facility] [address] [place] [address] Dr. Leni Hamlin MONOM% 5.0 % Normal 1.7-12.0 [facility] Comment on above: Performed By: #### C VDAGS #### [facility] [address] [place] [address] Dr. Leni Hamlin MPV 10.0 fL Normal 9.5-13.5 [facility] Comment on above: Performed By: #### C VDAGS #### [facility] [address] [address] [address] Leni Hamlin MYELOCYTE # Normal [facility] Comment on above: Performed By: #### C VDAGS #### [facility] [address] [place] [address] Dr. Leni Hamlin MYELOCYTE % Normal [facility] Comment on above: Performed By: #### C VDAGS #### [facility] [address] [place] [address] Dr. Leni Hamlin NRBC Normal [facility] Comment on above: Performed By: #### C VDAGS #### [facility] [address] [address] [address] Leni Hamlin PLT 161 103/ul Normal 150-450 [facility] Comment on above: Performed By: #### C VDAGS #### [facility] [address] [place] [address] Dr. Leni Hamlin RBC 5.20 106/ul Normal 4.70-6.10 [facility] Comment on above: Performed By: #### C VDAGS #### [facility] [address] [place] [address] Dr. Leni Hamlin RDW 13.5 % Normal 11.0-15.0 [facility] Comment on above: Performed By: #### C VDAGS #### [facility] [address] [place] [address] Dr. Leni Hamlin SEG # 13.76 103/ul Critically high 1.40-6.50 [facility] Comment on above: Performed By: #### C VDAGS #### [facility] [address] [place] [address] Dr. Leni Hamlin SEG % 80.0 % Critically high 43.0-75.0 [facility] Comment on above: Performed By: #### C VDAGS #### [facility] [address] [place] [address] Dr. Leni Hamlin WBC 17.2 103/ul Critically high 4.0-11.0 [facility] Comment on above: Performed By: #### C VDAGS #### [facility] [address] [address] [address] Leni Hamlin PROF CHEM 8 (BAS METB)on Anion gap [Moles/Vol] 12.5 mmol/L Normal [facility] Comment on above: Performed By: #### C VDAGS #### [facility] [address] [place] [address] Dr. Leni Hamlin Calcium [Mass/Vol] 8.4 mg/dL Critically low 8.5-10.1 [facility] Comment on above: Performed By: #### C VDAGS #### [facility] [address] [address] [address] Leni Hamlin Chloride [Moles/Vol] 100 mmol/L Normal 98-107 [facility] Comment on above: Performed By: #### C VDAGS #### [facility] [address] [place] [address] Dr. Leni Hamlin CO2 [Moles/Vol] 26.7 mmol/L Normal 21.0-32.0 [facility] Comment on above: Performed By: #### C VDAGS #### [facility] [address] [address] [address] Leni Hamlin Creatinine [Mass/Vol] 1.87 mg/dL Critically high 0.70-1.30 [facility] Comment on above: Performed By: #### C VDAGS #### [facility] [address] [place] [address] Dr. Leni Hamlin EGFR-AF ALGERIAN 43 mL/min/1.73m2 Critically low >=60 [facility] Comment on above: Performed By: #### C VDAGS #### [facility] [address] [address] [address] Leni Hamlin EGFR-NON AF ALGERIAN 36 mL/min/1.73m2 Critically low >=60 [facility] Comment on above: Performed By: #### C VDAGS #### [facility] [address] [address] [address] Leni Hamlin Glucose [Mass/Vol] 222 mg/dL Critically high 74-106 T [facility] Comment on above: Performed By: #### C VDAGS #### [facility] [address] [place] [address] Dr. Leni Hamlin Potassium [Moles/Vol] 4.2 mmol/L Normal 3.5-5.1 [facility] Comment on above: Performed By: #### C VDAGS #### [facility] [address] [place] [address] Dr. Leni Hamlin Sodium [Moles/Vol] 135 mmol/L Critically low 136-145 Th [facility] Comment on above: Performed By: #### C VDAGS #### [facility] [address] [place] [address] Dr. Leni Hamlin Urea nitrogen [Mass/Vol] 25.0 mg/dL Critically high 7.0-18.0 [facility] Comment on above: Performed By: #### C VDAGS #### [facility] [address] [place] [address] Dr. Leni Hamlin Urea nitrogen/Creatinine [Mass ratio] 13.4 mg/mg Normal [facility] Comment on above: Performed By: #### C VDAGS #### [facility] [address] [place] [address] Dr. Leni Hamlin Anion gap [Moles/Vol] 10.7 mmol/L Normal [facility] Comment on above: Performed By: #### B MP, BNP #### [facility] [address] [place] [address] Dr. Leni Hamlin Calcium [Mass/Vol] 8.2 mg/dL Critically low 8.5-10.1 [facility] Comment on above: Performed By: #### B MP, BNP #### [facility] [address] [place] [address] Dr. Leni Hamlin Chloride [Moles/Vol] 101 mmol/L Normal 98-107 [facility] Comment on above: Performed By: #### B MP, BNP #### [facility] [address] [place] [address] Dr. Leni Hamlin CO2 [Moles/Vol] 30.0 mmol/L Normal 21.0-32.0 [facility] Comment on above: Performed By: #### B MP, BNP #### [facility] [address] [place] [address] Dr. Leni Hamlin Creatinine [Mass/Vol] 1.49 mg/dL Critically high 0.70-1.30 [facility] Comment on above: Performed By: #### B MP, BNP #### [facility] [address] [place] [address] Dr. Leni Hamlin EGFR-AF ALGERIAN 56 mL/min/1.73m2 Critically low >=60 [facility] Comment on above: Performed By: #### B MP, BNP #### [facility] [address] [place] [address] Dr. Leni Hamlin EGFR-NON AF ALGERIAN 46 mL/min/1.73m2 Critically low >=60 [facility] Comment on above: Performed By: #### B MP, BNP #### [facility] [address] [place] [address] Dr. Leni Hamlin Glucose [Mass/Vol] 158 mg/dL Critically high 74-106 [facility] Comment on above: Performed By: #### B MP, BNP #### [facility] [address] [place] [address] Dr. Leni Hamlin Potassium [Moles/Vol] 5.7 mmol/L Critically high 3.5-5.1 [facility] Comment on above: Performed By: #### B MP, BNP #### [facility] [address] [place] [address] Dr. Leni Hamlin Sodium [Moles/Vol] 136 mmol/L Normal 136-145 [facility] Comment on above: Performed By: #### B MP, BNP #### [facility] [address] [place] [address] Dr. Leni Hamlin Urea nitrogen [Mass/Vol] 19.0 mg/dL Critically high 7.0-18.0 [facility] Comment on above: Performed By: #### B MP, BNP #### [facility] [address] [place] [address] Dr. Leni Hamlin Urea nitrogen/Creatinine [Mass ratio] 12.8 mg/mg Normal [facility] Comment on above: Performed By: #### B MP, BNP #### [facility] [address] [place] [address] Dr. Leni Hamlin BNPon 03-12-2022 Natriuretic peptide B (Bld) [Mass/Vol] 405.0 pg/mL Normal <=900.0 [facility] Comment on above: Performed By: #### B MP, BNP #### [facility] [address] [place] [address] Dr. Leni Hamlin CBC AUTO DIFFon 03-12-2022 BASO # 0.1 103/ul Normal 0.0-0.1 [facility] Comment on above: Performed By: #### C BC #### [facility] [address] [place] [address] Dr. Leni Hamlin Basophils/100 WBC (Bld) 0.3 % Normal 0.2-2.0 [facility] Comment on above: Performed By: #### C BC #### [facility] [address] [place] [address] Dr. Leni Hamlin EO # 0.0 103/ul Normal 0.0-0.7 [facility] Comment on above: Performed By: #### C BC #### [facility] [address] [place] [address] Dr. Leni Hamlin Eosinophils/100 WBC (Bld) 0.1 % Critically low 0.9-7.0 [facility] Comment on above: Performed By: #### C BC #### [facility] [address] [place] [address] Dr. Leni Hamlin Erythrocyte distribution width (RBC) [Ratio] 13.3 % Normal 11.0-15.0 [facility] Comment on above: Performed By: #### C BC #### [facility] [address] [place] [address] Dr. Leni Hamlin Hematocrit (Bld) [Volume fraction] 52.2 % Normal 42.0-54.0 [facility] Comment on above: Performed By: #### C BC #### [facility] [address] [address] [address] Leni Hamlin Hemoglobin (Bld) [Mass/Vol] 16.5 g/dL Normal 14.0-18.0 [facility] Comment on above: Performed By: #### C BC #### [facility] [address] [address] [address] Leni Hamlin IG # 0.19 10e3/ul Critically high 0.00-0.03 [facility] Comment on above: Performed By: #### C BC #### [facility] [address] [address] [address] Leni Hamlin IG % 1.0 % Critically high 0.0-0.5 [facility] Comment on above: Performed By: #### C BC #### [facility] [address] [place] [address] Dr. Leni Hamlin LYMPH # 0.8 103/ul Critically low 1.2-3.8 [facility] Comment on above: Performed By: #### C BC #### [facility] [address] [place] [address] Dr. Leni Hamlin Lymphocytes/100 WBC (Bld) 3.8 % Critically low 20.5-60.0 [facility] Comment on above: Performed By: #### C BC #### [facility] [address] [place] [address] Dr. Leni Hamlin MANUAL DIFF REQ NO Normal [facility] Comment on above: Performed By: #### C BC #### [facility] [address] [place] [address] Dr. Leni Hamlin MCH (RBC) [Entitic mass] 29.6 pg Normal 25.9-34.0 [facility] Comment on above: Performed By: #### C BC #### [facility] [address] [place] [address] Dr. Leni Hamlin MCHC (RBC) [Mass/Vol] 31.6 g/dL Normal 29.9-35.2 [facility] Comment on above: Performed By: #### C BC #### [facility] [address] [address] [address] Leni Hamlin MCV (RBC) [Entitic vol] 93.7 fL Normal 80.0-94.0 [facility] Comment on above: Performed By: #### C BC #### [facility] [address] [place] [address] Dr. Leni Hamlin MONO # 1.6 103/ul Critically high 0.3-0.8 [facility] Comment on above: Performed By: #### C BC #### [facility] [address] [place] [address] Dr. Leni Hamlin Monocytes/100 WBC (Bld) 8.3 % Normal 1.7-12.0 [facility] Comment on above: Performed By: #### C BC #### [facility] [address] [place] [address] Dr. Leni Hamlin NEUT # 17.0 103/ul Critically high 1.4-6.5 [facility] Comment on above: Performed By: #### C BC #### [facility] [address] [place] [address] Dr. Leni Hamlin Neutrophils/100 WBC (Bld) 86.5 % Critically high 43.0-75.0 [facility] Comment on above: Performed By: #### C BC #### [facility] [address] [place] [address] Dr. Leni Hamlin Platelet mean volume (Bld) [Entitic vol] 10.0 fL Normal 9.5-13.5 [facility] Comment on above: Performed By: #### C BC #### [facility] [address] [place] [address] Dr. Leni Hamlin PLT 194 103/ul Normal 150-450 [facility] Comment on above: Performed By: #### C BC #### [facility] [address] [place] [address] Dr. Leni Hamlin RBC 5.57 106/ul Normal 4.70-6.10 [facility] Comment on above: Performed By: #### C BC #### [facility] [address] [place] [address] Dr. Leni Hamlin WBC 19.7 103/ul Critically high 4.0-11.0 [facility] Comment on above: Performed By: #### C #### [facility] [id number] Leni Hamlin [address] CSPINE WO CONon [...] CIERA HERNÁNDEZ Date: 2022-03-12 13:42 Normal [facility] CT HEAD WO CONon 03-12-2022 [...] SUSAN KC Date: 2022-03-12 13:20 Normal [facility] CTA CHEST WO W CONon [...] by: CIERA HERNÁNDEZ Date: 2022-03-12 14:46 Normal [facility] CULTURE BLOODon 03-12-2022 Microscopic examination of blood, culture Culture Observations: NO GROWTH AT 5 DAYS. Normal [facility] Comment on above: Performed By: #### C MP, CRP #### [facility] [address], [place] [address] Dr. Leni Hamlin Microscopic examination of blood, culture Culture Observations: NO GROWTH AT 5 DAYS. Normal [facility] Comment on above: Performed By: #### C MP, CRP #### [facility] [address], [place] [address] Dr. Leni Hamlin Covid-19 PCR ([facility])on SARS-CoV-2 (COVID-19) RNA VENESSA+probe Ql (Unsp spec) Not detected Normal NOT DETECTED [facility] Comment on above: Result Comment: When diagnostic testing is negative, the possibility of a false negative should be considered in the context of a patient's recent exposures and the presence of clinical signs and symptoms consistent with SARS-CoV-2. This test is not yet approved or cleared by the [place] Food and Drug Administration (FDA). This test was developed by [employer], [place], [place]. The performance characteristics of this test were validated by [facility]. The results are not intended to be used as the sole means for clinical diagnosis or patient management decisions. [facility] is authorized under Clinical Laboratory [...] for this test is supported by the Loan Operations Specialist of Health and Human Service's declaration that [...] used). Performed By: #### C RP #### [facility] [address], [place] [address] Dr. Leni Hamlin D-DIMERon 03-12-2022 D-DIMER 6.00 mg/L FEU Critically high 0.19-0.50 [facility] Comment on above: Performed By: #### B MP, BNP #### [facility] [address], [place] [address] Dr. Leni Hamlin D-DIMER COMMENTS SEE BELOW Normal [facility] Comment on above: Result Comment: [...] Performed By: #### B MP, BNP #### [facility] [address] [place] [address] Dr. Leni HERBERT URINE PROFILEon 2 Bilirubin Ql (U) Negative Normal NEGATIVE [facility] Comment on above: Performed By: #### C RP #### [facility] [address] [place] [address] Dr. Leni Hamlin Clarity (U) CLEAR Normal CLEAR [facility] Comment on above: Performed By: #### C RP #### [facility] [address] [place] [address] Dr. Leni Hamlin Color (U) YELLOW Normal YELLOW [facility] Comment on above: Performed By: #### C RP #### [facility] [address] [place] [address] Dr. Leni Hamlin ERUAHD A micrscopic examina tion will be performed if indicated. Normal [facility] Comment on above: Performed By: #### C RP #### [facility] [address] [place] [address] Dr. Leni Hamlin Glucose Ql (U) Negative Normal NEGATIVE [facility] Comment on above: Performed By: #### C RP #### [facility] [address] [place] [address] Dr. Leni Hamlin Hemoglobin Ql (U) SMALL Abnormal NEGATIVE [facility] Comment on above: Performed By: #### C RP #### [facility] [address] [place] [address] Dr. Leni Hamlin Ketones Ql (U) Negative Normal NEGATIVE [facility] Comment on above: Performed By: #### C RP #### [facility] [address] [place] [address] Dr. Leni Hamlin LEUKOCYTES Negative Normal NEGATIVE [facility] Comment on above: Performed By: #### C RP #### [facility] [address] [place] [address] Dr. Leni Hamlin Nitrite Ql (U) Negative Normal NEGATIVE [facility] Comment on above: Performed By: #### C RP #### [facility] [address] [place] [address] Dr. Leni Hamlin pH (U) 5.5 [pH] Normal 5-9 [facility] Comment on above: Performed By: #### C RP #### [facility] [address] [place] [address] Dr. Leni Hamlin SPEC GRAVITY <=1.005 Abnormal 1.005-<=1.[address] [place] [address] Comment on above: Performed By: #### C RP #### [facility] [address] [place] [address] Dr. Leni Hamlin UA PROTEIN >300 Abnormal NEGATIVE/ TRACE [facility] Comment on above: Performed By: #### C RP #### [facility] [address] [place] [address] Dr. Leni Hamlin UR MICRO IND INDICATED Normal [facility] Comment on above: Performed By: #### C RP #### [facility] [address] [place] [address] Dr. Leni Hamlin Urobilinogen Qn (U) 0.2 {Stacy'U}/dL Normal 0.2 - 1. 0 [facility] Comment on above: Performed By: #### C RP #### [facility] [address] [place] [address] Dr. Leni Hamlin LACTATE/LACTIC ACIDon 2021 Lactate [Moles/Vol] 0.5 mmol/L Normal 0.4-2.0 [facility] Comment on above: Performed By: #### B MP, BNP #### [facility] [address] [place] [address] Dr. Leni Hamlin Lactate [Moles/Vol] 1.6 mmol/L Normal 0.4-2.0 [facility] Comment on above: Performed By: #### L ACT #### [facility] [address] [place] [address] Dr. Leni Hamlin PROF 14(COMP METB)on 022 Albumin [Mass/Vol] 3.1 g/dL Critically low 3.4-5.0 [facility] Comment on above: Performed By: #### B MP, BNP #### [facility] [address] [place] [address] Dr. Leni Hamlin Albumin/Globulin [Mass ratio] 0.8 {ratio} Normal [facility] Comment on above: Performed By: #### B MP, BNP #### [facility] [address] [place] [address] Dr. Leni Hamlin ALP [Catalytic activity/Vol] 52 U/L Normal 46-116 [facility] Comment on above: Performed By: #### B MP, BNP #### [facility] [address] [place] [address] Dr. Leni Hamlin ALT [Catalytic activity/Vol] 27 U/L Normal 16-63 [facility] Comment on above: Performed By: #### B MP, BNP #### [facility] [address] [place] [address] Dr. Leni Hamlin Anion gap [Moles/Vol] 12.9 mmol/L Normal [facility] Comment on above: Performed By: #### B MP, BNP #### [facility] [address] [place] [address] Dr. Leni Hamlin AST [Catalytic activity/Vol] 14 U/L Critically low 15-37 [facility] Comment on above: Performed By: #### B MP, BNP #### [facility] [address] [place] [address] Dr. Leni Hamlin Bilirubin [Mass/Vol] 1.2 mg/dL Critically high 0.2-1.0 [facility] Comment on above: Performed By: #### B MP, BNP #### [facility] [address] [place] [address] Dr. Leni Hamlin Calcium [Mass/Vol] 8.2 mg/dL Critically low 8.5-10.1 [facility] Comment on above: Performed By: #### B MP, BNP #### [facility] [address] [place] [address] Dr. Leni Hamlin Chloride [Moles/Vol] 99 mmol/L Normal 98-107 [facility] Comment on above: Performed By: #### B MP, BNP #### [facility] [address] [place] [address] Dr. Leni Hamlin CO2 [Moles/Vol] 28.4 mmol/L Normal 21.0-32.0 [facility] Comment on above: Performed By: #### B MP, BNP #### [facility] [address] [place] [address] Dr. Leni Hamlin Creatinine [Mass/Vol] 1.44 mg/dL Critically high 0.70-1.30 [facility] Comment on above: Performed By: #### B MP, BNP #### [facility] [address] [place] [address] Dr. Leni Hamlin EGFR-AF ALGERIAN 58 mL/min/1.73m2 Critically low >=60 [facility] Comment on above: Performed By: #### B MP, BNP #### [facility] [address] [place] [address] Dr. Leni Hamlin EGFR-NON AF ALGERIAN 48 mL/min/1.73m2 Critically low >=60 [facility] Comment on above: Performed By: #### B MP, BNP #### [facility] [address] [place] [address] Dr. Leni Hamlin Globulin (S) [Mass/Vol] 3.8 g/dL Normal [facility] Comment on above: Performed By: #### B MP, BNP #### [facility] [address] [place] [address] Dr. Leni Hamlin Glucose [Mass/Vol] 137 mg/dL Critically high 74-106 [facility] Comment on above: Performed By: #### B MP, BNP #### [facility] [address] [place] [address] Dr. Leni Hamlin Potassium [Moles/Vol] 4.3 mmol/L Normal 3.5-5.1 [facility] Comment on above: Performed By: #### B MP, BNP #### [facility] [address] [place] [address] Dr. Leni Hamlin Protein [Mass/Vol] 6.9 g/dL Normal 6.1-8.2 [facility] Comment on above: Performed By: #### B MP, BNP #### [facility] [address] [place] [address] Dr. Leni Hamlin Sodium [Moles/Vol] 136 mmol/L Normal 136-145 [facility] Comment on above: Performed By: #### B MP, BNP #### [facility] [address] [place] [address] Dr. Leni Hamlin Urea nitrogen [Mass/Vol] 15.0 mg/dL Normal 7.0-18.0 [facility] Comment on above: Performed By: #### B MP, BNP #### [facility] [address] [place] [address] Dr. Leni Hamlin Urea nitrogen/Creatinine [Mass ratio] 10.4 mg/mg Normal [facility] Comment on above: Performed By: #### B MP, BNP #### [facility] [address] [place] [address] Dr. Leni Hamlin PROTIMEon 03-12-2022 INR Coag (PPP) [Relative time] 1.07 {INR} Normal [facility] Comment on above: Performed By: #### B MP, BNP #### [facility] [address] [place] [address] Dr. Leni Hamlin INR GUIDELINES SEE BELOW Normal [facility] Comment on above: Result Comment: WAQAS RED INR: 2.0 - 3.0 CONDITIONS NOT LISTED BELOW 2.5 - 3.5 FOR PROSTHETIC HEART VALVE REPLACEMENT 2.5 - 3.5 RECURRENT THROMBOSIS Performed By: #### B MP, BNP #### [facility] [address] [place] [address] Dr. Leni Hamlin PT Coag (PPP) [Time] 11.5 s Normal 9.0-11.6 [facility] Comment on above: Performed By: #### B MP, BNP #### [facility] [address] [place] [address] Dr. Leni Hamlin TROPONIN, HIGH SENSITIVITYon 03-12-2022 HSTROP 12.8 pg/mL Normal 4.0-76.1 [facility] Comment on above: Result Comment: CUT- OFF POINTS HAVE BEEN ESTABLISHED BASED ON THE FOURTH UNIVERSAL DEFINITIONS OF MYOCARDIAL INFARCTION. THE UPPER REFERENCE LIMIT (URL) OF TROPONIN, DEFINED THE 99TH PERCENTILE OF cTnI DISTRIBUTION IN A REFERENCE POPULATION, HAS BEEN CONFIRMED THE DECISION THRESHOLD FOR CT DIAGNOSIS. Performed By: #### B MP, BNP #### [facility] [address] [place] [address] Dr. Leni Hamlin URINE MICROSCOPIC ONLYon BACTERIA NONE SEEN Normal NONE SEEN [facility] Comment on above: Performed By: #### C RP #### [facility] [address] [place] [address] Dr. Leni Hamlin Bacteria identified Cx Nom (U) NOT INDICATED Normal [facility] Comment on above: Performed By: #### C RP #### [facility] [address] [place] [address] Dr. Leni Hamlin CAST NONE SEEN Normal NONE SEEN [facility] Comment on above: Performed By: #### C RP #### [facility] [address] [place] [address] Dr. Leni Hamlin Crystals LM Nom (Urine sed) NONE SEEN Normal NONE SEEN [facility] Comment on above: Performed By: #### C RP #### [facility] [address] [place] [address] Dr. Leni Hamlin Epithelial cells LM Ql (Urine sed) NONE SEEN Normal NONE SEEN /RARE [facility] Comment on above: Performed By: #### C RP #### [facility] [address] [place] [address] Dr. Leni Hamlin MUCOUS MODERATE Abnormal NONE SEEN [facility] Comment on above: Performed By: #### C RP #### [facility] [address] [place] [address] Dr. Leni Hamlin RBC 2-5 Abnormal 0-2 [facility] Comment on above: Performed By: #### C RP #### [facility] [address] [place] [address] Dr. Leni Hamlin WBC NONE SEEN Normal NONE SEEN [facility] Comment on above: Performed By: #### C RP #### [facility] [address], [place] [address] Dr. Leni Hamlin XR RIBS RT PA [...] CIERA HERNÁNDEZ Date: 2022-03-12 13:35 Normal [facility] ([facility]on 01-09 SARS-CoV-2 (COVID-19) RNA VENESSA+probe Ql (Unsp spec) Not detected Normal NOT DETECTED [facility] Comment on above: Result Comment: This test is not yet approved or cleared by the [place] FDA. When there are no FDA-approved or cleared tests available, and other criteria are met, FDA can make tests available under an emergency access mechanism called an Emergency Use Authorization (EUA). The EUA for this test is supported by the [place] of Health and Human Service's (HHS's) declaration [...] SARS-CoV-2. Performed By: #### C RP #### [facility] [address], [place] [address] Dr. Leni Hamlin INFLUENZA A AND B AGon 01-25 INFLUANEGH SEE BELOW Normal [facility] Comment on above: Result Comment: Nega tive for Flu A protein angiten. Infection due to Flu A cannot be ruled out. Flu A angiten in the sample may be below the detection limit of the test. Performed By: #### C RP #### [facility] [address] [place] [address] Dr. Leni Hamlin [facility] SEE BELOW Normal [facility] Comment on above: Result Comment: Nega tive for Flu B protein antigen. Infection due to Flu B cannot be ruled out. Flu B antigen in the sample may be below the detection limit of the test. Performed By: #### C RP #### [facility] [address] [place] [address] Dr. Leni Hamlin INFLUENZA A AG Negative Normal NEGATIVE SEE COMMENT [facility] Comment on above: Performed By: #### C RP #### [facility] [address] [place] [address] Dr. Leni Hamlin INFLUENZA B AG Negative Normal NEGATIVE SEE COMMENT [facility] Comment on above: Performed By: #### C RP #### [facility] [address] [place] [address] Dr. Leni Hamlin INTERNAL CONTROLS Within Normal Limits Normal Wi thin Normal Limits [facility] Comment on above: Performed By: #### C RP #### [facility] [address] [place] [address] Dr. Leni Hamlin COVID-19 Antigenon 2 COVID-19 [...] its performance Cindy Disclaimer characteristic determined by [employer] and Cindy Disclaimer validated at [facility]. This Cindy Disclaimer test has not been [...] is terminated or revoked sooner. PERFORMED BY: [place] [id number] PATHOLOGIST FAMILY READINESS SUPPORT ASSISTANT ZOHAIB JEWELL M.D. [facility] [place] Comment on above: Performed By: #### C OVID-19 CINDY, SOFIANEG #### [facility] [address] [place] [id number] [facility] Cindy Ag Negativeon 12-01-19 Cindy Ag Negative Negative Normal Negative [facility] Comment on above: Result Comment: This is a duplicate Cindy SARS Antigen (JENNIFER) result to be used for statistical tracking purpose only. PERFORMED BY: [place] [id number] PATHOLOGIST FAMILY READINESS SUPPORT ASSISTANT ZOHAIB JEWELL M.D. Performed By: #### C OVID-19 CINDY, SOFIANEG #### [facility] [address] [place] [id number] [facility] Vital Signs Date Time Vital Sign Value Performing Clinician Facility 09-21-2024 14:22-0500 Body mass index (BMI) [Ratio] 35 kg/m2 Fred Gonzalez MD Work Phone: [facility] 09-21-2024 14:22-0500 Body temperature 97.81 [degF] Fred Gonzalez MD Work Phone: [facility] 09-21-2024 14:22-0500 Body weight 98.3 kg Fred Gonzalez MD Work Phone: [facility] 09-21-2024 14:22-0500 Diastolic blood pressure 83 mm[Hg] Fred Gonzalez MD Work Phone: [facility] 09-21-2024 14:22-0500 Heart rate 88 /min Fred Gonzalez MD Work Phone: [facility] 09-21-2024 14:22-0500 Respiratory rate 18 /min Fred Gonzalez MD Work Phone: [facility] 09-21-2024 14:22-0500 SaO2% (BldA) [Mass fraction] 94 % Fred Gonzalez MD Work Phone: [facility] 09-21-2024 14:22-0500 Systolic blood pressure 150 mm[Hg] Fred escobedo MD Work Phone: [facility] 09-07-2024 13:45-0400 Body height 167.6 cm Fred Gonzalez MD Work Phone: [facility] 09-07-2024 13:45-0400 Body mass index (BMI) [Ratio] 35.21 kg/m2 Fred Gonzalez MD Work Phone: [facility] 09-07-2024 13:45-0400 Body temperature 97.2 [degF] Fred Gonzalez MD Work Phone: [facility] 09-07-2024 13:45-0400 Body weight 98.9 kg Fred Gonzalez MD Work Phone: [facility] 09-07-2024 13:45-0400 Diastolic blood pressure 98 mm[Hg] Fred Gonzalez MD Work Phone: [facility] 09-07-2024 13:45-0400 Heart rate 78 /min Fred Gonzalez MD Work Phone: [facility] 09-07-2024 13:45-0400 Respiratory rate 16 /min Fred Gonzalez MD Work Phone: [facility] 09-07-2024 13:45-0400 SaO2% (BldA) [Mass fraction] 94 % Fred Gonzalez MD Work Phone: [facility] 09-07-2024 13:45-0400 Systolic blood pressure 162 mm[Hg] Fred escobedo MD Work Phone: [facility] 08-27-2024 13:09-0400 Body mass index (BMI) [Ratio] 34.94 kg/m2 Fred Gonzalez MD Work Phone: [facility] 08-27-2024 13:09-0400 Body temperature 97.3 [degF] Fred Gonzalez MD Work Phone: [facility] 08-27-2024 13:09-0400 Body weight 98.2 kg Fred Gonzalez MD Work Phone: [facility] 08-27-2024 13:09-0400 Diastolic blood pressure 85 mm[Hg] Fred Gonzalez MD Work Phone: [facility] 08-27-2024 13:09-0400 Heart rate 91 /min Fred Gonzalez MD Work Phone: [facility] 08-27-2024 13:09-0400 Respiratory rate 18 /min Fred Gonzalez MD Work Phone: [facility] 08-27-2024 13:09-0400 SaO2% (BldA) [Mass fraction] 95 % Fred Gonzalez MD Work Phone: [facility] 08-27-2024 13:09-0400 Systolic blood pressure 128 mm[Hg] Fred escobedo MD Work Phone: [facility] 08-17-2024 12:31-0400 Body height 167.6 cm Pacc 1 Other Phone: [facility] 08-17-2024 12:31-0400 Body mass index (BMI) [Ratio] 34.3 kg/m2 Pacc 1 Other Phone: [facility] 08-17-2024 12:31-0400 Body temperature 96.69 [degF] Pacc 1 Other Phone: [facility] 08-17-2024 12:31-0400 Body weight 96.4 kg Pacc 1 Other Phone: [facility] 08-17-2024 12:31-0400 Diastolic blood pressure 72 mm[Hg] Pacc 1 Other Phone: [facility] 08-17-2024 12:31-0400 Heart rate 69 /min Pacc 1 Other Phone: [facility] 08-17-2024 12:31-0400 Respiratory rate 18 /min Pacc 1 Other Phone: [facility] 08-17-2024 12:31-0400 SaO2% (BldA) [Mass fraction] 96 % Pacc 1 Other Phone: [facility] 08-17-2024 12:31-0400 Systolic blood pressure 138 mm[Hg] Pacc 1 Other Phone: [facility] 07-30-2024 14:21-0400 Body height 166.9 cm Fred Gonzalez MD Work Phone: [facility] 07-30-2024 14:21-0400 Body mass index (BMI) [Ratio] 35.29 kg/m2 Fred Gonzalez MD Work Phone: [facility] 07-30-2024 14:21-0400 Body weight 98.3 kg Fred Gonzalez MD Work Phone: [facility] 07-30-2024 14:21-0400 Diastolic blood pressure 76 mm[Hg] Fred Gonzalez MD Work Phone: [facility] 07-30-2024 14:21-0400 Heart rate 68 /min Fred Gonzalez MD Work Phone: [facility] 07-30-2024 14:21-0400 Respiratory rate 16 /min Fred Gonzalez MD Work Phone: [facility] 07-30-2024 14:21-0400 SaO2% (BldA) [Mass fraction] 95 % Fred Gonzalez MD Work Phone: [facility] 07-30-2024 14:21-0400 Systolic blood pressure 123 mm[Hg] Fred escobedo MD Work Phone: [facility] 07-30-2024 13:05-0400 Body mass index (BMI) [Ratio] 35.22 kg/m2 Noah Harrison MD Work Phone: [facility] 07-30-2024 13:05-0400 Body temperature 97.5 [degF] Noah Harrison MD Work Phone: [facility] 07-30-2024 13:05-0400 Body weight 98.1 kg Noah Harrison MD Work Phone: [facility] 07-30-2024 13:05-0400 Diastolic blood pressure 76 mm[Hg] Noah Harrison MD Work Phone: [facility] 07-30-2024 13:05-0400 Heart rate 68 /min Noah Harrison MD Work Phone: [facility] 07-30-2024 13:05-0400 Respiratory rate 16 /min Noah Harrison MD Work Phone: [facility] 07-30-2024 13:05-0400 SaO2% (BldA) [Mass fraction] 95 % Noah Harrison MD Work Phone: [facility] 07-30-2024 13:05-0400 Systolic blood pressure 123 mm[Hg] Noah Harrison MD Work Phone: [facility] 07-22-2024 13:30-0400 Body height 166.9 cm Micha Avina MD Work Phone: [facility] 07-22-2024 13:30-0400 Body mass index (BMI) [Ratio] 34.03 kg/m2 Micha Avina MD Work Phone: [facility] 07-22-2024 13:30-0400 Body temperature 97.3 [degF] Micha Avina MD Work Phone: [facility] 07-22-2024 13:30-0400 Body weight 94.8 kg Micha Avina MD Work Phone: [facility] 07-22-2024 13:30-0400 Diastolic blood pressure 79 mm[Hg] Micha Avina MD Work Phone: [facility] 07-22-2024 13:30-0400 Heart rate 67 /min Micha Avina MD Work Phone: [facility] 07-22-2024 13:30-0400 SaO2% (BldA) [Mass fraction] 98 % Micha Avina MD Work Phone: [facility] 07-22-2024 13:30-0400 Systolic blood pressure 150 mm[Hg] Micha Avina MD Work Phone: [facility] 07-22-2024 11:16-0400 Body height 166.9 cm Sangeetha Earl MD Work Phone: [facility] 07-22-2024 11:16-0400 Body mass index (BMI) [Ratio] 34.18 kg/m2 Sangeetha Earl MD Work Phone: [facility] 07-22-2024 11:16-0400 Body temperature 97.3 [degF] Sangeetha Earl MD Work Phone: [facility] 07-22-2024 11:16-0400 Body weight 95.2 kg Sangeetha Earl MD Work Phone: [facility] 07-22-2024 11:16-0400 Diastolic blood pressure 79 mm[Hg] Sangeetha Earl MD Work Phone: [facility] 07-22-2024 11:16-0400 Heart rate 67 /min Sangeetha Earl MD Work Phone: [facility] 07-22-2024 11:16-0400 Respiratory rate 18 /min Sangeetha Earl MD Work Phone: [facility] 07-22-2024 11:16-0400 SaO2% (BldA) [Mass fraction] 98 % Sangeetha Earl MD Work Phone: [facility] 07-22-2024 11:16-0400 Systolic blood pressure 150 mm[Hg] Sangeetha Mas Work Phone: [facility] 07-03-2024 14:45-0400 Body height 165.1 cm Tamiko Laffey ELEMENTARY EDUCATION TEACHER.WAGON DRIVER SALESPERSON Work Phone: [facility] 07-03-2024 14:45-0400 Body mass index (BMI) [Ratio] 36.59 kg/m2 Tamiko Laffey ELEMENTARY EDUCATION TEACHER.WAGON DRIVER SALESPERSON Work Phone: [facility] 07-03-2024 14:45-0400 Body temperature 98.01 [degF] Tamiko Laffey ELEMENTARY EDUCATION TEACHER.WAGON DRIVER SALESPERSON Work Phone: [facility] 07-03-2024 14:45-0400 Body weight 99.75 kg Tamiko Laffey ELEMENTARY EDUCATION TEACHER.WAGON DRIVER SALESPERSON Work Phone: [facility] 07-03-2024 14:45-0400 Diastolic blood pressure 70 mm[Hg] Tamiko Laffey ELEMENTARY EDUCATION TEACHER.WAGON DRIVER SALESPERSON Work Phone: [facility] 07-03-2024 14:45-0400 Heart rate 75 /min Tamiko Laffey ELEMENTARY EDUCATION TEACHER.WAGON DRIVER SALESPERSON Work Phone: [facility] 07-03-2024 14:45-0400 SaO2% (BldA) [Mass fraction] 96 % Tamiko Laffey ELEMENTARY EDUCATION TEACHER.WAGON DRIVER SALESPERSON Work Phone: [facility] 07-03-2024 14:45-0400 Systolic blood pressure 136 mm[Hg] Tamiko Laffey ELEMENTARY EDUCATION TEACHER.WAGON DRIVER SALESPERSON Work Phone: [facility] 06-19-2024 15:29-0400 SaO2% (BldA) [Mass fraction] 99 % ELENO JIMENEZ [facility] Comment on above: Order Comment: Specimen Type: ARTERIAL B LOOD SPECIMENOrdering Facility: [facility] Address: [address] [place], [place] [address] Performed By: #### A LLBG ####[facility] LABIA [id number] [address] [address] [place] 06-19-2024 13:33-0400 SaO2% (BldA) [Mass fraction] 100 % ELENO JIMENEZ [facility] Comment on above: Order Comment: Specimen Type: ARTERIAL B LOOD SPECIMENOrdering Facility: [facility] Address: [address] [place], [place] [address] Performed By: #### A LLBG ####[facility] LABIA [id number] [place] [id number] [place] 06-19-2024 11:34-0400 SaO2% (BldA) [Mass fraction] 100 % ELENO JIMENEZ [facility] Comment on above: Order Comment: Specimen Type: ARTERIAL B LOOD SPECIMENOrdering Facility: [facility] Address: [address] [place], [place] [address] Performed By: #### A LLBG ####[facility] LABIA [id number] [place] [id number] [place] 06-19-2024 09:33-0400 SaO2% (BldA) [Mass fraction] 99 % ELENO JIMENEZ [facility] Comment on above: Order Comment: Specimen Type: ARTERIAL B LOOD SPECIMENOrdering Facility: [facility] Address: [address] [place], [place] [address] Performed By: #### A LLBG ####[facility] LABIA [id number] [place] [id number] [place] 06-19-2024 08:04-0400 SaO2% (BldA) [Mass fraction] 99 % ELENO JIMENEZ [facility] Comment on above: Order Comment: Specimen Type: ARTERIAL B LOOD SPECIMENOrdering Facility: [facility] Address: [address] [place], [place] [address] Performed By: #### A LLBG ####[facility] LABCLIA [id number] [address] [address] [facility] 06-19-2024 06:15-0400 SaO2% (BldA) [Mass fraction] 100 % ELENO JIMENEZ [facility] Comment on above: Order Comment: Specimen Type: ARTERIAL B LOOD SPECIMENOrdering Facility: [facility] Address: [address] [place], [place] [address] Performed By: #### A LLBG ####[facility] LABCLIA [id number] [place] [id number] [facility] 06-19-2024 04:54-0400 SaO2% (BldA) [Mass fraction] 100 % ELENO JIMENEZ [facility] Comment on above: Order Comment: Specimen Type: ARTERIAL B LOOD SPECIMENOrdering Facility: [facility] Address: [address] [place], [place] [address] Performed By: #### A LLBG ####[facility] LABIA [id number] [place] [id number] [place] 06-19-2024 03:47-0400 SaO2% (BldA) [Mass fraction] 99 % ELENO JIMENEZ [facility] Comment on above: Order Comment: Specimen Type: ARTERIAL B LOOD SPECIMENOrdering Facility: [facility] Address: [address] [place], [place] [address] Performed By: #### A LLBG ####[facility] LABCLIA [id number] [address] [address] [place] 06-19-2024 01:36-0400 SaO2% (BldA) [Mass fraction] 99 % ELENO JIMENEZ [facility] Comment on above: Order Comment: Specimen Type: ARTERIAL B LOOD SPECIMENOrdering Facility: [facility] Address: [address] [place], [place] [address] Performed By: #### A LLBG ####[facility] LABCLIA [id number] [place] [id number] [place] 06-19-2024 00:21-0400 SaO2% (BldA) [Mass fraction] 99 % ELENO JIMENEZ [facility] Comment on above: Order Comment: Specimen Type: ARTERIAL B LOOD SPECIMENOrdering Facility: [facility] Address: [address] [place], [place] [address] Performed By: #### A LLBG ####[facility] LABCLIA [id number] [place] [id number] [place] 06-18-2024 21:39-0400 SaO2% (BldA) [Mass fraction] 100 % ELENO JIMENEZ [facility] Comment on above: Order Comment: Specimen Type: ARTERIAL B LOOD SPECIMENOrdering Facility: [facility] Address: [address] [place] [address] Performed By: #### A LLBG ####[facility] LABIA [id number] [place] [id number] [place] 06-18-2024 19:54-0400 SaO2% (BldA) [Mass fraction] 99 % ELENO JIMENEZ [facility] Comment on above: Order Comment: Specimen Type: ARTERIAL B LOOD SPECIMENOrdering Facility: [facility] Address: [address] [place], [place] [address] Performed By: #### A LLBG ####[facility] LABCLIA [id number] [place] [id number] [place] 06-18-2024 18:48-0400 SaO2% (BldA) [Mass fraction] 100 % ELENO JIMENEZ [facility] Comment on above: Order Comment: Specimen Type: ARTERIAL B LOOD SPECIMENOrdering Facility: [facility] Address: [address] [place] [address] Performed By: #### A LLBG ####[facility] LABCLIA [id number] [place] [id number] [place] [facility] 06-18-2024 18:20-0400 SaO2% (BldA) [Mass fraction] 100 % ELENO JIMENEZ [facility] Comment on above: Order Comment: Specimen Type: ARTERIAL B LOOD SPECIMENOrdering Facility: [facility] Address: [address] [place], [place] [address] Performed By: #### A LLBG ####[facility] LABCLIA [id number] [place] [id number] [place] 06-18-2024 17:43-0400 SaO2% (BldA) [Mass fraction] 100 % ELENO [facility] Comment on above: Order Comment: Specimen Type: ARTERIAL B LOOD SPECIMENOrdering Facility: [facility] Address: [address] [place] [address] Performed By: #### A LLBG ####[facility] LABCLIA [id number] [address] [place] 06-18-2024 17:23-0400 SaO2% (BldA) [Mass fraction] 99 % ELENO [facility] Comment on above: Order Comment: Specimen Type: ARTERIAL B LOOD SPECIMENOrdering Facility: [facility] Address: [address] [place] [address] Performed By: #### A LLBG ####[facility] LABIA [id number] [place] [id number] [place] 06-18-2024 15:36-0400 SaO2% (BldA) [Mass fraction] 100 % ELENO [facility] Comment on above: Order Comment: Specimen Type: ARTERIAL B LOOD SPECIMENOrdering Facility: [facility] Address: [address] [place] [address] Performed By: #### A LLBG ####[facility] LABCLIA [id number] [place] [id number] [place] 06-18-2024 15:11-0400 SaO2% (BldA) [Mass fraction] 100 % ELENO JIMENEZ [facility] Comment on above: Order Comment: Specimen Type: ARTERIAL B LOOD SPECIMENOrdering Facility: [facility] Address: [address] [place] [address] Performed By: #### A LLBG ####[facility] LABCLIA [id number] [place] [id number] [place] 06-18-2024 14:30-0400 SaO2% (BldA) [Mass fraction] 100 % ELENO JIMENEZ [facility] Comment on above: Order Comment: Specimen Type: ARTERIAL B LOOD SPECIMENOrdering Facility: [facility] Address: [address] [place] [address] Performed By: #### A LLBG ####[facility] LABCLIA [id number] [place] [id number] [place] 06-18-2024 11:15-0400 SaO2% (BldA) [Mass fraction] 97 % ELENO JIMENEZ [facility] Comment on above: Order Comment: Specimen Type: ARTERIAL B LOOD SPECIMENOrdering Facility: [facility] Address: [address] [place] [address] Performed By: #### A LLBG ####[facility] LABCLIA [id number] [place] [id number] [place] Encounters Encounter Date Encounter Type Care Provider Facility Start: [facility]30[facility] Start: 06-15-[facility]25 amb[facility] Start: 06-14-2025 ambulatory [facility] Start: [facility] Start: 05-25-2025 ambulatory [facility] Start: 04-12-2025 ambulatory [facility] Start: 03-24-2025 ambulatory [facility] Start: 03-11-2025 End: 03-11-2025 ambulatory DARRELL [facility] Start: 03-09-2025 ambulatory [facility] Start: 03-02-2025 End: 03-02-2025 ambulatory [facility] Start: 12-29-2024 End: 12-29-2024 Telephone encounter Elliott Sanchez MD Work Phone: Urology 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 Start: 10-01-2024 End: 10-01-2024 Telephone encounter Fred Gonzalez MD Work Phone: Cancer Appts Start: 09-22-2024 End: 09-25-2024 Telephone encounter Noah Harrison MD Work Phone: Radiation Oncology Comment on above: Appointment; Patient Update Start: 09-21-2024 End: 09-21-2024 Office outpatient visit 15 minutes Fred Gonzalez MD Work Phone: Hematology/Oncology Comment on above: Rectal cancer (HCC) (Primary Dx) Start: 09-21-2024 End: 09-21-2024 ambulatory FRED GONZALEZ Facility:[facility] Start: 09-18-2024 End: 09-21-2024 Telephone encounter Noah Harrison MD Work Phone: Radiation Oncology Comment on above: Appointment Start: 09-08-2024 End: 09-08-2024 ambulatory NOAH HARRISON Facility:[facility] Start: 09-08-2024 End: 09-08-2024 Subsequent hospital visit [...] End: 09-07-2024 Patient encounter procedure [facility] Provider [facility] Department Start: 09-07-2024 End: 09-07-2024 Telephone encounter Abril Gardner RN Work Phone: Hematology/Oncology Comment on above: Care Coordination (B CG treatments) Start: 09-07-2024 End: 09-08-2024 ambulatory FRED GONZALEZ Facility:[facility] Start: 09-04-2024 End: 09-07-2024 ambulatory ELLIOT DECKER Facility:[facility] Start: 09-04-2024 End: 09-07-2024 Patient encounter procedure [...] (c apecitabine) Start: 08-27-2024 End: 08-27-2024 ambulatory [facility] Facility:[facility] Start: 08-27-2024 End: 08-27-2024 Office outpatient visit 25 minutes Fred Gonzalez MD Work Phone: Hematology/Oncology Comment on above: Rectal cancer (HCC) (Primary Dx) Start: 08-26-2024 End: 08-31-2024 Telephone encounter Noah Harrison MD Work Phone: Radiation Oncology Comment on above: Future Appointment Start: 08-25-2024 End: 08-25-2024 Telephone encounter Elliott Sanchez MD Work Phone: Urology Comment on above: Results Start: 08-20-2024 End: 08-20-2024 ambulatory [facility] Facility:[facility] Start: 08-18-2024 End: 08-21-2024 ambulatory Joaquina Dacosta APRN.WAGON DRIVER SALESPERSON Work Phone: Urology Start: 08-18-2024 End: 08-18-2024 Patient encounter procedure Joaquina Dacosta ELEMENTARY EDUCATION TEACHER.WAGON DRIVER SALESPERSON Work Phone: Urology Comment on above: Pre-op exam (Primary Dx) Start: 08-18-2024 End: 08-18-2024 Preprocedural examination done Joaquina Dacosta APRN.CNP Work Phone: [facility] Work Phone: Start: 08-17-2024 End: 08-17-2024 Telephone [...] hypertension; Mixed hyperlipidemia; Coronary artery disease involving huslia coronary artery of huslia heart without angina pectoris; Atrial fibrillation, chronic (HCC); RVF (right ventricular failure) (HCC); Pacemaker; Former smoker; TEJ (obstructive sleep apnea); Stage 3 chronic kidney disease, unspecified whether stage 3a or 3b CKD (HCC); Rectal cancer (HCC); History of prostate cancer; Obesity (BMI 30-39.9); Anemia, unspecified type; Obesity, Class II, BMI 35-39.9 Start: 08-17-2024 End: 08-17-2024 Preprocedural examination done [address] Other Phone: [facility] Work Phone: Start: 08-17-2024 End: 08-17-2024 ambulatory ELLIOT DECKER Facility:[facility] Start: 08-17-2024 Encounter for other preprocedural examination ELLIOTT [facility] Start: 08-14-2024 End: 08-14-2024 ambulatory FRED GONZALEZ Facility:[facility] Start: 08-14-2024 End: 08-14-2024 Subsequent hospital visit [...] Surgery Start: 08-12-2024 End: 08-12-2024 ambulatory MODESTO [facility] Start: 08-11-2024 End: 08-11-2024 ambulatory DARRELL [facility] Start: 08-04-2024 End: 08-04-2024 Telephone encounter Christen Cleveland RN Work Phone: Radiation Oncology Comment on above: 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 (Consult notes) Start: 07-30-2024 [...] Start: 07-30-2024 End: 07-31-2024 ambulatory JEREMIE COYNE Facility:[facility] Start: 07-30-2024 End: 07-31-2024 Patient encounter procedure [...] Hematology/Oncology Start: 07-29-2024 End: 07-29-2024 ambulatory DARRELL [facility] Start: 07-29-2024 End: 07-29-2024 ambulatory JEREMIE COYNE Facility:[facility] Start: 07-23-2024 End: 07-28-2024 Telephone encounter Jeremie Coyne MD Work Phone: Hematology/Oncology 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: 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 Start: 07-22-2024 End: 07-22-2024 ambulatory JEREMIE COYNE Facility:[facility] Start: 07-22-2024 End: 07-22-2024 ambulatory Jeremie Coyne MD Work Phone: Hematology/Oncology Comment on above: Rectal cancer (HCC) Start: 07-22-2024 End: 07-22-2024 Office outpatient visit 25 minutes Micha Avina MD Work Phone: Colorectal Surgery Comment on above: Rectal cancer (HCC) (Primary Dx); Bladder mass; Prostate cancer managed with active surveillance (HCC) Start: 07-22-2024 End: 07-22-2024 ambulatory MASOOD WILDER Facility:[facility] Start: 07-22-2024 End: 07-22-2024 Patient encounter procedure Elliott Sanchez MD Work Phone: Urology Comment on above: Screening for genito urinary condition (Primary Dx); Neoplasm of bladder Rectal cancer (HCC) Start: 07-22-2024 End: 07-22-2024 ambulatory ELLIOTT SANCHEZ Facility:[facility] Start: 07-03-2024 End: 07-03-2024 Patient encounter procedure Tamiko Mcduffie ELEMENTARY EDUCATION TEACHER.WAGON DRIVER SALESPERSON Work Phone: Cardiothoracic Comment on above: S/P CABG x 3 (Primar y Dx); Atrial fibrillation, chronic (HCC); Stage 3 chronic kidney disease, unspecified whether stage 3a or 3b CKD (HCC) Start: 07-03-2024 End: 07-03-2024 ambulatory MASOOD WILDER Facility:[facility] Start: 07-03-2024 End: 07-03-2024 Subsequent hospital visit [...] and management of inpatient ELLIOT M HOY Facility:[facility] Start: 06-19-2024 End: 06-19-2024 Evaluation and management of inpatient ELLIOT M HOY Facility:[facility] Start: 06-16-2024 End: 06-16-2024 Evaluation and management of inpatient ELENODEANNA JIMENEZ Facility:[facility] Start: 06-15-2024 End: 06-15-2024 Evaluation and management of inpatient ELLIOT M HOY Facility:[facility] Start: 06-13-2024 End: 06-13-2024 Evaluation and management of inpatient DEVIN WANG Facility:[facility] Start: 06-11-2024 End: 06-26-2024 Evaluation and management of inpatient KINA ERNST Facility:[facility] Start: 05-07-2024 ambulatory [facility] Start: [...] 06-24-2023 End: 06-25-2023 ambulatory Urvashi Rawls MD [facility] Start: 06-10-2023 End: 06-11-2023 ambulatory Urvashi Rawls MD Facility[facility] Start: 05-27-2023 End: 05-28-2023 ambulatory Urvashi Rawls MD Facility[facility] Start: 01-16-2023 End: 01-16-[address] [...] Start: 03-22-2022 End: 03-23-2022 ambulatory MODESTO SINGH Facility:[facility] Start: 03-20-2022 End: 03-21-[address] ELLIOT DECKER . Facility:[facility] Start: 03-13-2022 End: 03-15-2022 Evaluation and management of inpatient DR ELLIOT DECKER . Facility:[facility] Start: 01-25-2022 End: 01-25-2022 ambulatory GAGANDEEP PAREDSE Facility:[facility] Procedures Date Procedure Procedure Detail Performing Clinician Start: 09-08-2024 Gluc bld gluc mntr d ev cleared fda spec home use [facility] Provider Start: 07-22-2024 Flexible sigmoidoscopy ELENO JIMENEZ Start: 07-22-2024 Sigmoidoscopy flx dx w/collj spec br/wa if pfrmd [facility] Provider Start: 07-22-2024 CYTOLOGY NON-GEOLOGICAL SURVEY FIELD ASSISTANT Elliott pryor MD Work Phone: Start: 07-22-2024 Urnls dip stick/tabl et rgnt auto w/o microscopy Elliott Sanchez MD Work Phone: Start: 07-03-2024 Radiologic exam ches t 2 views Masood Wilder MD Work Phone: Start: 06-23-2024 Antibody screen ELENO JIMENEZ Comment on above: Order Comment: Speci men Type: BLOOD SPECIMENOrdering Facility: [facility] Address: [address] [place] [address] Performed By: #### T SCR ####CC MAIN BLOOD BANKCLIA [id number] [address] Start: 06-18-2024 Antibody screen ELENO JIMENEZ Comment on above: Order Comment: Speci men Type: BLOOD SPECIMENOrdering Facility: [facility] Address: [address] [place] [address] Performed By: #### T SCR ####CC MAIN BLOOD BANKCLIA [id number] [address] Start: 06-13-2024 Echocardiography ELENO JIMENEZ Start: 06-11-2024 Antibody screen ELENO JIMENEZ Comment on above: Order Comment: Speci men Type: BLOOD SPECIMENOrdering Facility: [facility] Address: [address] [place] [address] Performed By: #### T SCR ####CC MAIN BLOOD BANKCLIA [id number] [address] History of coronary artery bypass grafting S/P CABG x 3 Tamiko Mcduffie APRN.WAGON DRIVER SALESPERSON Work Phone: Plan of Treatment Date Care Activity Detail Author Start: 09-07-2027 Diabetes Screening Diabetes Screenin g [facility] Start: 08-17-2027 Diabetes Screening Diabetes Screenin g [facility] Start: 07-30-2027 Diabetes Screening Diabetes Screenin g [facility] Start: 07-03-2027 Diabetes Screening Diabetes Screenin g [facility] Start: 06-26-2027 Diabetes Screening Diabetes Screenin g [facility] Start: 09-07-2025 Complete blood count Hemoglobin/Kevin tocrit [facility] Start: 09-07-2025 Creatinine measurement Serum Creatin ine [facility] Start: 08-17-2025 Complete blood count Hemoglobin/Kevin tocrit [facility] Start: 08-17-2025 Creatinine measurement Serum Creatin ine [facility] Start: 07-30-2025 BP Controlled (<130/80) BP Controlle d (<130/80) [facility] Start: 07-30-2025 Complete blood count Hemoglobin/Kevin tocnjt [facility] Start: 07-30-2025 Creatinine measurement Serum Creatin ine [facility] Start: 07-03-2025 Complete blood count [facility] Start: 07-03-2025 Creatinine measurement Serum Creatin ine [facility] Start: 06-26-2025 Complete blood count Hemoglobin/Kevin tocrit [facility] Start: 06-26-2025 Creatinine measurement Serum Creatin ine [facility] Start: 06-16-2025 Hepatitis B surface antibody level LDL Cholesterol [facility] Start: 11-16-2024 End: 11-16-2024 Follow-up encounter 11/16/2024 2:30 PM EST Visit (SP) Office Hematology/Oncology [address] [address] Fred Gonzalez MD [address] [place] [address] 8 week follow up lab Hematology/Oncology Comment on above: 8 week follow up lab Start: 11-16-2024 End: 11-16-2024 Patient encounter procedure 11/16/2024 2:15 PM EST Office Visit [facility] [address] [place] [address] 8 week follow up lab [facility] Comment on above: 8 week follow up lab Start: 11-11-2024 Advance Directive Discussion Advance Directive Discussion [facility] Start: 10-01-2024 End: 10-01-2024 Patient encounter procedure 10/01/2024 2:10 PM EST Appointment MRI Q [address] [address] DUE TO PT IMPLANT- IF APPT NEEDS TO BE RESCHEDULED IT MUST BE SENT TO THE FOLLOWING STAFF MESSAGE ADDRESS: IMAGING IMPLANTS [[id number]]. PACEMAKER/ICD approved to schedule by: MRI Q Comment on above: DUE TO PT IMPLANT- I F APPT NEEDS TO BE RESCHEDULED IT MUST BE SENT TO THE FOLLOWING STAFF MESSAGE ADDRESS: IMAGING IMPLANTS [[id number]]. PACEMAKER/ICD approved to schedule by: Start: 09-30-2024 End: 09-30-2024 Patient encounter procedure 09/30/2024 9:40 AM EST Appointment [facility] [place] [address] [place], [place] [id number] DUE TO PT IMPLANT- IF APPT NEEDS TO BE RESCHEDULED IT MUST BE SENT TO THE FOLLOWING STAFF MESSAGE ADDRESS: IMAGING IMPLANTS [[id number]]. PACEMAKER/ICD approved to schedule by: [facility] Radiology MRI Comment on above: DUE TO PT IMPLANT- I F APPT NEEDS TO BE RESCHEDULED IT MUST BE SENT TO THE FOLLOWING STAFF MESSAGE ADDRESS: IMAGING IMPLANTS [[id number]]. PACEMAKER/ICD approved to schedule by: Start: 09-24-2024 End: 09-24-2024 Patient encounter procedure Radiation Oncology Comment on above: [facility] RECTUM (SA R PT) [facility] RECTUM - W OULD LIKE AFTERNOONS (TANNER PT) Start: 09-21-2024 End: 09-21-2024 Follow-up encounter 09/21/2024 2:30 PM EST Visit (SP) Office Hematology/Oncology [address] [facility] [address] [place], [place] [address] Fred Gonzalez MD [address] [place] [address] 2 week follow up lab Hematology/Oncology Comment on above: 2 week follow up lab Start: 09-21-2024 End: 09-21-2024 Patient encounter procedure 09/21/2024 2:15 PM EST Office Visit [facility] [address] [place] [address] 2 week follow up lab [facility] Comment on above: 2 week follow up lab Start: 09-17-2024 End: 09-17-2024 Patient encounter procedure Radiation Oncology Comment on above: NEW START, PELVIS Pelvis pt prefers af vern (TANNER PT) Start: 09-08-2024 End: 09-08-2024 Patient encounter procedure 09/08/2024 10:45 AM EDT Appointment Radiology Pet CT [address] [facility] [place] [address] Comment on above: PET Start: 09-07-2024 End: 09-07-2024 Nursing evaluation of patient and report 09/07/2024 3:00 PM EDT Nurse Visit Hematology/Oncology [address] [place] [address] Abril Gardner, RN [address] [place] [address] Chemo Education after appointment with Dr. Tenorio Hematology/Oncology Comment on above: Chemo Education afte r appointment with Dr. Tenorio Start: 09-07-2024 End: 09-07-2024 ambulatory 09/07/2024 2:00 PM EDT Visit (SP) Office Hematology/Oncology [address] [place] [address] Fred Gonzalez MD [address] [place] [address] Arrived Hematology/Oncology Comment on above: Arrived Start: 09-07-2024 End: 12-07-2024 CBC W Auto Differential panel - Blood COMPLETE BLOOD COUNT AND DIFFERENTIAL Lab Routine Rectal cancer (HCC) Expected: 09/07/2024, Expires: 12/07/2024 [facility] Work Phone: Comment on above: Expected: 09/07/2024 , Expires: 12/07/2024 Start: 09-07-2024 End: 12-07-2024 Comprehensive metabolic 2000 panel - Serum or Plasma COMPREHENSIVE METABOLIC PANEL Lab Routine Rectal cancer (HCC) Expected: 09/07/2024, Expires: 12/07/2024 [facility] Comment on above: Expected: 09/07/2024 , Expires: 12/07/2024 Start: 09-07-2024 End: 09-07-2024 Follow-up encounter 09/07/2024 2:00 PM EDT Visit (SP) Office Hematology/Oncology [address] [place] [address] Fred Gonzalez MD [address] [place] [address] 2 week follow up on 09-07-24 per check out note Hematology/Oncology Comment on above: 2 week follow up on 09-07-24 per check out note Start: 09-07-2024 End: 09-07-2024 Patient encounter procedure 09/07/2024 1:45 PM EDT Office Visit [facility] [address] [place] [address] 2 week follow up on 09-07-24 per check out note [facility] Comment on above: 2 week follow up on 09-07-24 per check out note Start: 09-04-2024 End: 09-04-2024 Patient encounter procedure Radiation Oncology Comment on above: PRE SIM - TREATING R ECTUM W IV ORAL CONTRAST SIM - TREATING RECTU M W IV ORAL CONTRAST Start: 09-03-2024 End: 09-03-2024 Nutrition therapy 09/03/2024 3:00 PM EDT Education Nutrition Therapy [address] [place] [address] [place] [address] Rectal cancer (HCC) [C20] Nutrition Therapy Comment on above: Rectal cancer (HCC) [C20] Start: 08-29-2024 End: 08-29-2025 CT Abdomen and Pelvis W contrast IV CT ABD/PEL W IVCON Radiology Routine Rectal cancer (HCC) Expected: 08/29/2024, Expires: 08/29/2025 [facility] Comment on above: Expected: 08/29/2024 , Expires: 08/29/2025 Start: 08-29-2024 End: 08-29-2025 CT Chest W contrast IV CT CHEST W IVCON Radiology Routine Rectal cancer (HCC) Expected: 08/29/2024, Expires: 08/29/2025 [facility] Comment on above: Expected: 08/29/2024 , Expires: 08/29/2025 Start: 08-27-2024 End: 11-26-2024 aPTT in Platelet poor plasma by Coagulation assay ACTIVATED PARTIAL THROMBOPLASTIN TIME Lab Routine Rectal cancer (HCC) Bladder mass Expected: 08/27/2024 (Approximate), Expires: 11/26/2024 [facility] Comment on above: Expected: 08/27/2024 (Approximate), Expires: 11/26/2024 Start: 08-27-2024 End: 11-26-2024 Bacteria identified in Urine by Culture URINE CULTURE Microbiology Routine Rectal cancer (HCC) Bladder mass Unspecified abnormal findings in urine Expected: 08/27/2024 (Approximate), Expires: 11/26/2024 [facility] Comment on above: Expected: 08/27/2024 (Approximate), Expires: 11/26/2024 Start: 08-27-2024 End: 11-26-2024 Basic metabolic 2000 panel - Serum or Plasma BASIC METABOLIC PANEL Lab Routine Rectal cancer (HCC) Bladder mass Expected: 08/27/2024 (Approximate), Expires: 11/26/2024 [facility] Work Phone: Comment on above: Expected: 08/27/2024 (Approximate), Expires: 11/26/2024 Start: 08-27-2024 End: 11-26-2024 CBC panel - Blood by Automated count COMPLETE BLOOD COUNT Lab Routine Rectal cancer (HCC) Bladder mass Expected: 08/27/2024 (Approximate), Expires: 11/26/2024 [facility] Comment on above: Expected: 08/27/2024 (Approximate), Expires: 11/26/2024 Start: 08-27-2024 End: 11-26-2024 PT panel - Platelet poor plasma by Coagulation assay PROTHROMBIN TIME Lab Routine Rectal cancer (HCC) Bladder mass Expected: 08/27/2024 (Approximate), Expires: 11/26/2024 [facility] Comment on above: Expected: 08/27/2024 (Approximate), Expires: 11/26/2024 Start: 08-27-2024 End: 11-26-2024 Urinalysis complete panel - Urine URINALYSIS, WITH MICROSCOPIC Lab Routine Rectal cancer (HCC) Bladder mass Expected: 08/27/2024 (Approximate), Expires: 11/26/2024 [facility] Comment on above: Expected: 08/27/2024 (Approximate), Expires: 11/26/2024 Start: 08-27-2024 End: 08-27-2024 Follow-up encounter Hematology/Oncology Comment on above: 4 week follow up aft er imaging Start: 08-20-2024 End: 08-20-2024 Admission to same day surgery center 08/20/2024 7:30 AM EDT - 08/20/2024 10:49 AM EDT Surgery Admitting [address] [place] [address] [place] [address] [place] [address] RESECTION BLADDER TUMOR TRANSURETHRAL Admitting Comment on [...] AM EDT Hospital Encounter Admitting [address] [place] [address] Elliott Sanchez MD [address] [place] [address] Rectal cancer (HCC) [C20], Bladder mass [N32.89] Admitting Comment on above: Rectal cancer (HCC) [C20], Bladder mass [N32.89] Start: 08-18-2024 End: 08-18-2024 Patient encounter procedure 08/18/2024 8:30 AM EDT Office Visit Urology [address] [address] Joaquina Dacosta APRN.[employer] SAL[employer]ERSON [address] [id number] T/O ~ over the phone~ Urology Comment on above: T/O ~ over the phone ~ Start: 08-17-2024 End: 08-17-2024 Patient encounter procedure Pre Anesthesia Comment on above: pre op labs and urine Start: 08-14-2024 End: 08-14-2024 Patient encounter procedure 08/14/2024 9:45 AM EDT Appointment Radiology Pet CT [address] [place] [address] CT CAP W IV Radiology Pet CT Comment on above: CT CAP W IV Start: 07-30-2024 End: 07-30-2024 ambulatory 07/30/2024 3:00 PM EDT Visit (SP) Office Hematology/Oncology [address] [place] [address] Fred Gonzalez MD [address] [place] [address] Merritt Coyne DX: Rectal CASEE TANNER PRIOR Hematology/Oncology Comment on above: Ref by Dr Merritt kohler DX: Rectal CASEE TANNER PRIOR Start: 07-30-2024 End: 10-29-2024 Carcinoembryonic Ag [Mass/volume] in Serum or Plasma [facility] Comment on above: Expected: 07/30/2024 (Approximate), Expires: 10/29/2024 Start: 07-30-2024 End: 07-30-2025 Cobalamin (Vitamin B12) [Mass/volume] in Serum or Plasma [facility] Comment on above: Expected: 07/30/2024 (Approximate), Expires: 07/30/2025 Start: 07-30-2024 End: 07-30-2025 Ferritin [Mass/volume] in Serum or Plasma [facility] Comment on above: Expected: 07/30/2024 (Approximate), Expires: 07/30/2025 Start: 07-30-2024 End: 07-30-2025 Folate [Mass/volume] in Serum or Plasma [facility] Comment on above: Expected: 07/30/2024 (Approximate), Expires: 07/30/2025 Start: 07-30-2024 End: 07-30-2025 Iron and Iron binding capacity panel - Serum or Plasma [facility] Work Phone: Comment on above: Expected: 07/30/2024 (Approximate), Expires: 07/30/2025 Start: 07-30-2024 End: 10-29-2024 Prostate specific Ag [Mass/volume] in Serum or Plasma [facility] Comment on above: Expected: 07/30/2024 , Expires: 10/29/2024 Start: 07-30-2024 End: 07-30-2024 Patient encounter procedure 07/30/2024 1:00 PM EDT Office Visit Radiation Oncology [address] [place] [address] Noah Harrison MD [address] [place] [address] Merritt Coyne DX: Rectal CASEE MONTALVO AFTER Radiation Oncology Comment on above: Ref by Dr Merritt Cuenca ro DX: Rectal CASEE MONTALVO AFTER Start: 07-29-2024 End: 07-29-2024 ambulatory 07/29/2024 1:30 PM EDT [facility] Hematology/Oncology [address] [place], [place] [id number] Jeremie Coyne MD [address] [place] [address] EST PHONE Hematology/Oncology Comment on above: EST PHONE Start: 07-22-2024 End: 07-22-2024 ambulatory 07/22/2024 2:30 PM EDT Visit (SP) Office Hematology/Oncology [address] [place] [address] Jeremie Coyne MD [address] [place] [address] rectal cancer Hematology/Oncology Comment on above: rectal cancer Start: 07-22-2024 End: 07-22-2024 Patient encounter procedure Colorectal Surgery Comment on above: rectal caner RECTAL CANCER rectal cancer: Idalmis Earl @ 11AM and Dr. Coyne @ 2:30PM. Start: 07-12-2024 Covid-19 Vaccine ( season) Covid-19 Vaccine () [facility] Start: 07-12-2024 Covid-19 Vaccine () Covid-19 Vaccine () [facility] Start: 07-12-2024 Influenza vaccination Influenza Vacc ine (#1) [facility] Start: 07-03-2024 End: 07-03-2024 Follow-up encounter 07/03/2024 2:45 PM EDT Results Only Cardiology [address] [id number] Surgery follow-up Cardiology Comment on above: Surgery follow-up Start: 07-03-2024 End: 07-03-2024 ambulatory 07/03/2024 2:30 PM EDT Results Only Main [address] [place] [address] CBC CMP Main [place] [address] Comment on above: CBC CMP Start: 07-03-2024 End: 07-03-2024 Patient encounter procedure Radiology Comment on above: Surgery follow-up SN[facility] PT FULL HOUR Start: 07-01-2024 End: 09-30-2024 CBC panel - Blood by Automated count COMPLETE BLOOD COUNT Lab Routine Chest pain, unspecified type Expected: 07/01/2024, Expires: 09/30/2024 [facility] Work Phone: Comment on above: Expected: 07/01/2024 , Expires: 09/30/2024 Start: 07-01-2024 End: 09-30-2024 Comprehensive metabolic 2000 panel - Serum or Plasma COMPREHENSIVE METABOLIC PANEL Lab Routine Surgery follow-up Expected: 07/01/2024, Expires: 09/30/2024 [facility] Comment on above: Expected: 07/01/2024 , Expires: 09/30/2024 Start: 03-14-2024 Covid-19 Vaccine () Covid-19 Vaccine () [facility] Start: 11-11-2023 Advance Directive Discussion Advance Directive Discussion [facility] Start: 2023 RSV Vaccine (1 - 1-d ose 75+ series) RSV Vaccine (1 - 1-dose 75+ series) [facility] Start: 2008 RSV Vaccine (1 - 1-d ose 60+ series) RSV Vaccine (1 - 1-dose 60+ series) [facility] Start: 1998 Shingrix Vaccine (1 of 2) Cardona grix Vaccine (1 of 2) [facility] Start: 1967 Shingrix Vaccine (1 of 2) Cardona grix Vaccine (1 of 2) [facility] Start: 1967 Urine microalbumin profile DTa P,Tdap,Td Vaccine (1 - Tdap) [facility] Start: 1966 Annual PCP Team Physician Specialist melani Disease Visit Annual PCP Team Chronic Disease Visit [facility] Start: 1966 Anxiety Screening Anxiety Screening [facility] Start: 1966 BP Controlled (<130/80) BP Controlle d (<130/80) [facility] Start: 1966 Depression Screening Depression Scre ening [facility] Start: 1966 Hepatitis C screening Hepatitis C [facility] Bacteria identified in Urine by Culture URINE CULTURE Microbiology Routine Screening for genitourinary condition 07/22/2024 10:17 AM EDT [facility] Work Phone: CT Abdomen and Pelvi s W contrast IV CT ABD/PEL W IVCON Radiology Routine Rectal cancer (HCC) 08/14/2024 1:18 PM EDT [facility] Work Phone: CT Chest W contrast IV CT CHEST W IVCON Radiology Routine Rectal cancer (HCC) 08/14/2024 1:18 PM EDT [facility] CT Guidance for radi ation treatment of Unspecified body region CT SIM PLANNING RADIATION ONCOLOGY Radiology Routine Rectal cancer (HCC) Ordered: 09/04/2024 [facility] Work Phone: Comment on above: Ordered: 09/04/2024 End: 07-01-2025 ECG COMPLETE ECG COMPLETE ECG Routine Surgery follow-up 1 Occurrences starting 07/01/2024 until 07/01/2025 [facility] Comment on above: 1 Occurrences starti ng 07/01/2024 until 07/01/2025 PET+CT Guidance for localization of tumor of Skull base to mid-thigh-- W 18F-FDG IV NM PET/CT SKULL-THIGH INITIAL Radiology Routine Rectal cancer (HCC) 09/08/2024 12:17 PM EDT [facility] Work Phone: URINALYSIS, REFLEX MICROSCOPIC URINALYSIS, REFLEX MICROSCOPIC Lab Routine Screening for genitourinary condition Ordered: 08/18/2024 [facility] Work Phone: Comment on above: Ordered: 08/18/2024 End: 07-31-2025 XR Chest PA and Lateral XR CHEST 2V FRONTAL/LAT Radiology Routine Surgery follow-up 1 Occurrences starting 07/01/2024 until 07/31/2025 [facility] Comment on above: 1 Occurrences starti ng 07/01/2024 until 07/31/2025 Immunizations Immunization Date Immunization Notes Care Provider Fa [facility] 11-14-2023 influenza (HD-IIV4) vaccine, age 65+ yr, high dose, quadrivalent, PF (FLUZONE HIGH-DOSE) Riya Liu PA-C Work Phone: [facility] 11-14-2023 influenza virus vacc ine, unspecified formulation Masood Wilder MD Work Phone: [facility] 09-12-2022 influenza, high dose seasonal, preservative-free Riya Liu PA-C Work Phone: [facility] 08-31-2021 influenza (HD-IIV4) vaccine, age 65+ yr, high dose, quadrivalent, PF (FLUZONE HIGH-DOSE) Riya Liu PA-C Work Phone: [facility] 08-10-2020 Seasonal trivalent influenza vaccine, adjuvanted, preservative free Riya Liu PA-C Work Phone: [facility] 11-18-2017 influenza, injectabl e, quadrivalent, preservative free Riya Liu PA-C Work Phone: [facility] 07-29-2017 influenza, high dose seasonal, preservative-free Riya Liu PA-C Work Phone: [facility] 07-29-2017 pneumococcal conjuga te vaccine, 13 valent Riya Liu PA-C Work Phone: [facility] 11-19-2016 pneumococcal polysaccharide vaccine, 23 valent Riya FRANCISCO-Eloina Work Phone: [facility] Payers Date Payer Category Payer Private Health Insurance MMO MED ICARE SUPPLEMENT Member Subscriber Plan / Payer (Effective 2021-Present) Name: Brian Oneal Relation to Subscriber: Self Name: Brian Oneal Payer ID: Not on file Type: Indemnity Address: [place] [id number] 2021 Unknown 2013 Medicare 1959 Medicare [id number] 1959 Self-pay 1959 Unknown [id number] 1948 Unknown [id number] 2.16.840.1.046170.3.579.2. 647 1948 Unknown [id number] 2.16.840.1.513624.3.579.2. 593 1948 Unknown [id number] 2.16.840.1.252921.3.579.2. 593 1948 Unknown [id number] 2.16.840.1.447610.3.579.2. 593 1948 Unknown [id number] 2.16.840.1.866642.3.579.2. 593 1948 Unknown [id number] 2.16.840.1.677395.3.579.2. 593 1948 Unknown [id number] 2.16.840.1.282884.3.579.2. 593 1948 Unknown [id number] 2.16.840.1.016995.3.579.2. 593 1948 Unknown [id number] 2.16.840.1.377573.3.579.2. 593 1948 Unknown [id number] 2.16.840.1.085686.3.579.2. 593 1948 Unknown [id number] 2.16.840.1.276192.3.579.2. 593 1948 Unknown [id number] 2.16.840.1.515172.3.579.2. 593 1948 Unknown [id number] 2.16.840.1.711497.3.579.2. 593 1948 Unknown [id number] 2.16.840.1.744934.3.579.2. 593 1948 Unknown [id number] 2.16.840.1.278701.3.579.2. 196 1948 Unknown [id number] 2.16.840.1.251452.3.579.2. 196 1948 Unknown [id number] 2.16.840.1.195261.3.579.2. 196 1948 Unknown [id number] 2.16.840.1.469815.3.579.2. 196 1948 Unknown [id number] 2.16.840.1.367391.3.579.2. 196 1948 Unknown [id number] 2.16.840.1.675562.3.579.2. 196 1948 Unknown [id number] 2.16.840.1.959772.3.579.2. 196 1948 Unknown [id number] 2.16.840.1.828787.3.579.2. 196 Social History Date Type Detail Facility Tobacco smoking stat [facility] Tobacco smoking consumption unknown [facility] Start: 06-12-2024 End: 08-17-2024 History of Social function [facility] melani Work Phone: Start: 06-12-2024 End: 08-17-2024 [facility] Utilities [facility] Work Phone: Has the [employer], or [email or web address] threatened to shut off services in your home in past 12Mo No [facility] Work Phone: (I/We) worried kiko er (my/our) food would run out before (I/we) got money to buy more. Never true [facility] In the past 12 month s, has lack of transportation kept you from medical appointments or from getting medications? No [facility] Start: 1950 Sex assigned at Not on file [facility] Start: 07-22-2024 End: 08-17-2024 Tobacco smoking status NEIS Ex-smoker [facility] Start: 07-30-1966 History of tobacco use Current smoker [facility] Start: 07-30-1966 History of tobacco use Cigarette Smoker [facility] Start: 07-22-2024 End: 08-17-2024 Tobacco use and exposure Smokeless tobacco non-user [facility] Start: 07-30-2024 End: 08-27-2024 Alcoholic beverage intake Ex-drinker (finding) [facility] melani Medical Equipment Procedure Code Equipment Code Equipment Origin al Text Equipment Identifier Dates Clip Atriclip Gillinov-Gudelia 180d Long 35mm 25mm Internal Head - [id number] Start: 06-18-2024 Hemoblast Bellow s And 1 Ea Short 10 Cm Cannula - [id number] Start: 06-18-2024 Envelope Aigisrx R Medium Defibrillator Absorbable Antibacterial - [id number] Start: 06-18-2024 Chester Thk1.65mm P tfe 4x.5in Cardiovascular Sterile - [id number] Start: 06-18-2024 Other Solia S 45 [id number] Start: 03-22-2022 Comment on above: Description: 1.5T ON LY Other Eleno S 53 [id number] Start: 03-22-2022 Lead Capsure Epi 8fr Steroid Eluting Silicone 35cm Pacing Is-1 Bipolar - [id number] Start: 06-18-2024 [id number] Edora 8 D r-T [id number] Start: 03-22-2022 Goals Date Patient Goal Desired Activity /State Personal health goal Functional Status Date Assessment Result Facility 06-26-2024 Are you deaf, or do you have serious difficulty hearing No 06/26/2024 1:36 PM Shannan Boothe RN No [facility] 06-26-2024 Are you blind, or do you have serious difficulty seeing, even when wearing glasses No 06/26/2024 1:36 PM Shannan Boothe RN No [facility] 06-26-2024 Do you have serious difficulty walking or climbing stairs Yes 06/26/2024 1:36 PM Shannan Boothe RN Yes [facility] 06-26-2024 Do you have difficul ty dressing or bathing Yes 06/26/2024 1:36 PM Shannan Boothe RN Yes [facility] 06-26-2024 Because of a physica l, mental, or emotional condition, do you have difficulty doing errands alone such as visiting a physician's office or shopping Yes 06/26/2024 1:36 PM Shannan Boothe RN Yes [facility] Mental Status Date Assessment Result Facility 06-26-2024 Because of a physica l, mental, or emotional condition, do you have serious difficulty concentrating, remembering, or making decisions No 06/26/2024 1:36 PM EDT Shannan Lee RN No [facility] Clinical Notes 03-23-2022 to 03-11-2025 Telephone Encounter - Heike Kelsey - 12/29/2024 4:26 PM ESTTelephone Encounter - AlvarezjoelleCady xiongica - 12/29/2024 4:26 PM Elliott Young MD - 11/25/2024 1:00 PM ESTPatient Instructions Note Date & Type Note Facility 03-11-2025 Note Cardiovascular Medic [facility] SUBJECTIVE Chief Complaint Patient presents with [...] 07/29/2024 He recently underwent a CABG at [facility]. He was discharged from rehab yesterday. Post [...] back: Neck supple. (more content not included)... [facility] 03-11-2025 Note Patient is here toda y for a 4 month follow up. Patient states he feels good. Patient states he is mowing and doing his daily chores with out difficulty or shortness of breath. Patient state he has swelling in his right leg. Patient denies chest pain, dizziness, or palpitations. Review of Systems Constitutional: Negative for malaise/fatigue. Cardiovascular: Positive for leg swelling. [facility] 12-29-2024 Telephone encounter Note I contacted the [...] he will be following locally. Cady Moy [facility] 12-29-2024 Miscellaneous Notes I contacted the patient [...] Cady Jorge Luis documented in this encounter [facility] 11-25-2024 History of Present illness Narrative Patient did not register for appointment or log in, will reach out to see if patient wishes to pursue follow-up. documented in this encounter [facility] 11-25-2024 Note HNO ID: [id number] Author: ELLIOTT SANCHEZ MD Service: ? Author Type: Physician Type: Progress Notes Filed: 11/25/2024 15:22 Note Text: Patient did not register for appointment or log in, will reach out to see if patient wishes to pursue follow-up. [facility] 11-20-2024 Note [place] Cardiology Note [facility] HPI: Brian Oneal is a 74 y.o. year old with past medical history of SSS s/p PPM, PVD, and CAD s/p CABG. He presents to cardiology clinic for routine follow up. Patient here for 3 mo follow up per Darrell Mueller CNP. 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 He completed [...] was initiated by the patient and conducted quw-fupv-oy-face with use of audio-only real time telephone [...] his significant other (more content not included)... [facility] 10-01-2024 Telephone encounter Note Called patient to schedule Nutrition follow up, patient declined at this time. He is putting all treatment and Radiation on hold until at least the first of the year. He will let us know if he wants to schedule. [facility] 10-01-2024 Miscellaneous Notes Called patient to schedule Nutrition follow up, patient declined at this time. He is putting all treatment and Radiation on hold until at least the first of the year. He will let us know if he wants to schedule. documented in this encounter [facility] 09-23-2024 Telephone encounter Note Paresh declined chemo radiation at this time. No need to arrange device check. Lara Evans RN [facility] 09-23-2024 Miscellaneous Notes Paresh declined chemo radiation at this time. No need to arrange device check. aLra Evans RN Charlette with Darrell Mueller, [facility] office states Paresh is not pacemaker dependent. Most recent device check in Care Everywhere was done 08/27/24. Dr. Harrison said Paresh will need a post treatment device check. Nursing will arrange for this once his treatment schedule is available. Lara Evans RN documented in this encounter [facility] 09-22-2024 Telephone encounter Note Paresh stopped in [...] on follow up. Thanks Lara Evans RN [facility] 09-22-2024 Miscellaneous Notes Paresh stopped in today [...] Lara Evans RN documented in this encounter [facility] 09-21-2024 Instructions Fred Gonzalez MD - 09/21/2024 2:59 PM EST Follow up in 8 weeks. He refused all the cancer treatments. documented in this encounter [facility] 09-21-2024 History of Present illness Narrative PATIENT NAME: Brian Oneal [facility] NO.: [id number] ATTENDING PHYSICIAN: Fred Gonzalez MD DATE OF SERVICE: 09/21/[address] Jeremie Coyne [phone] [facility] [address] thank you for referring Brian Oneal for [...] 11, 2024 through June 26, 2024 at [facility]. He was initially admitted to [facility] on June 04, 2024 for planned heart catheterization. This showed significant coronary artery disease CABG was recommended. During the hospitalization he had bloody stool since Eliquis was started in April and GI was consulted. EGD on June 05, 2024 in [place] showed erosive gastropathy with hematin throughout the [...] contrast June 05, 2024 and reviewed by [facility] radiology showing indeterminate subcentimeter pulmonary nodules. No prior imaging for review. Interstitial lung abnormalities noted. Clinical and PFT correlation recommended. CT scan abdomen and pelvis with contrast June 05, 2024 and reviewed by [facility] radiology shows a 1.5 cm sessile polypoid bladder mass concerning for neoplasm. The rectal mass seen on MRI is not identifiable. MRI of the pelvis without contrast June 09, 2024 reviewed by [facility] radiology shows a 2.4 cm mass penetrating [...] Range Status 09/07/2024 8.5 % Final Abs Ferry Date Value Ref Range Status 09/07/2024 0.67 [...] was seen by Dr. Coyne at the [facility]. His recommendations were to do a [...] for the bladder cancer as per the [facility] physician recommendations. - He refused bladder [...] in [address] Jeremie Coyne [address] [facility] [address] thank you for allowing me to participate in [facility], if there are any questions or concerns please do not hesitate to contact me at the number below. I spent a total of 20 minutes on the date of the service which included preparing to see the patient, [id number]-[id number] patient care, completing clinical documentation, obtaining and/or reviewing separately obtained history, performing a medically appropriate examination, counseling and educating the patient/family/caregiver, ordering medications, tests, or procedures, communicating with other HCPs (not separately reported), independently interpreting results (not separately reported), communicating results to the patient/family/caregiver, and care coordination (not separately reported). Fred Gonzalez MD. Hematology/Medical Oncology [facility] [phone] CC: documented in this encounter [facility] 09-21-2024 Note [facility] 09-18-2024 Telephone encounter Note I notified Paresh that his new start appointment has been rescheduled from 09/21/24 to 09/24/24 with an arrival time of 2:15. I explained that we need a little more time for treatment planning. He is aware not to start his Xeloda until 09/24/24 also. He is thankful for the call and denies questions at this time. Lara Evans RN [facility] 09-18-2024 Miscellaneous Notes I notified Paresh that [...] Lara Evans RN documented in this encounter [facility] 09-08-2024 History of Present illness Narrative Radiology [...] PATIENT PRESENTS WITH AN IMPLANTABLE OR ATTACHED MANUSCRIPTS ARCHIVIST: No IV SITE: RT wrist POST EXAM PIV STATUS: Discontinued PROCEDURE TYPE: NM INJECT: PET/CT BODY SCAN. 14 mCi F18 FDG. No other medications given.. ADMINISTRATION TIME: 1050 PATIENT DISCHARGED TO: Ambulatory patient, left [place] department area. A Diagnostic radioactive procedure has taken place, with no further precautions necessary other than routine body substance precautions. More information regarding radiation safety can be found using this link: [email or web address] SIGNATURE: RT Stephane(R) PATIENT NAME: Brian Oneal DATE: September 08, 2024 TIME: 11:56 AM PAGER/CONTACT #: documented in this encounter [facility] 09-08-2024 Note [facility] 09-08-2024 Note [facility] 09-07-2024 Telephone encounter Note Closing encounter as this is on hold. 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 He would like to hold off on starting radiation and chemo medication until 09/21. Abril Gardner, RN [facility] Department of Pharmacy Oncology Pharmacy Medication Education [...] Stone RPh Pager: documented in this encounter [facility] 09-07-2024 Note [facility] 09-07-2024 Telephone encounter Note Hold please, Dr Montalvo just said that he spoke with the patient and he doesn't want to do BCG treatments at this time. Abril Gardner RN [facility] Work Phone: 09-07-2024 Instructions Fred Gonzalez MD - 09/07/2024 2:03 PM EDT Start xeloda on the start day of the radiation Pt likes to hold off on the intravesical BCG treatments F/u in 2 weeks documented in this encounter [facility] 09-07-2024 History of Present illness Narrative PATIENT NAME: Brian Oneal [facility] NO.: [id number] ATTENDING PHYSICIAN: Fred Gonzalez MD DATE OF SERVICE: 09/07/[address] Jeremie Coyne [address] [address] thank you for referring Brian Oneal for [...] 11, 2024 through June 26, 2024 at [facility]. He was initially admitted to [facility] on June 04, 2024 for planned heart catheterization. This showed significant coronary artery disease CABG was recommended. During the hospitalization he had bloody stool since Eliquis was started in April and GI was consulted. EGD on June 05, 2024 in [place] showed erosive gastropathy with hematin throughout the [...] contrast June 05, 2024 and reviewed by [facility] radiology showing indeterminate subcentimeter pulmonary nodules. No prior imaging for review. Interstitial lung abnormalities noted. Clinical and PFT correlation recommended. CT scan abdomen and pelvis with contrast June 05, 2024 and reviewed by [facility] radiology shows a 1.5 cm sessile polypoid bladder mass concerning for neoplasm. The rectal mass seen on MRI is not identifiable. MRI of the pelvis without contrast June 09, 2024 reviewed by [facility] radiology shows a 2.4 cm mass penetrating [...] Range Status 09/07/2024 8.5 % Final Abs Ferry Date Value Ref Range Status 09/07/2024 0.67 [...] was seen by Dr. Coyne at the [facility]. His recommendations were to do a [...] for the bladder cancer as per the [facility] physician recommendations. - He refused bladder [...] in [address] Jeremie Coyne [address] [address] thank you for allowing me to participate in Brian Oneal [facility], if there are any questions or concerns please do not hesitate to contact me at the number below. I spent a total of 20 minutes on the date of the service which included preparing to see the patient, [id number] patient care, completing clinical documentation, obtaining and/or reviewing separately obtained history, performing a medically appropriate examination, counseling and educating the patient/family/caregiver, ordering medications, tests, or procedures, communicating with other HCPs (not separately reported), independently interpreting results (not separately reported), communicating results to the patient/family/caregiver, and care coordination (not separately reported). Fred Gonzalez MD. Hematology/Medical Oncology [facility] [phone] CC: documented in this encounter [facility] 09-07-2024 Note [facility] 09-07-2024 Telephone encounter Note Pt has orders in beacon from Dr Sanchez to begin BCG treatments on 09/28. These need to be scheduled please. Thanks Abril Gardner, RN [facility] 09-07-2024 Nurse Note Patient would like to start treatment after 09/21/24. Mica Oliva MA [facility] 09-07-2024 Nurse Note Patient would like to start treatment after 09/21/24. Mica Oliva MA documented in this encounter [facility] 09-04-2024 Note [facility] 09-04-2024 History of Present illness Narrative Radiation Oncology - Follow Up Note PATIENT NAME: Brian Oneal PATIENT Signed by: Noah Harrison MD I spent a total of 20 minutes on the date of the service which included preparing to see the patient, [id number] patient care, and counseling and educating the patient/family/caregiver. This document has been created with the use of voice recognition technology. It may contain inaccuracies, misspellings, inaccurate syntax or inappropriate word context that are a result of the inadequacies/shortcomings of said technology/software. documented in this encounter [facility] 09-04-2024 Telephone encounter Note Charlette Mueller NP office states Paresh is not pacemaker dependent. Most recent device check in Care Everywhere was done 08/27/24. Dr. Harrison said Paresh will need a post treatment device check. Nursing will arrange for this once his treatment schedule is available. Lara Evans, RN [facility] 09-04-2024 History of Present illness Narrative BRIAN ONEAL [id number] 09/04/2024 [facility] Radiation Oncology Department SIMULATION NOTE DATE OF SIMULATION: 09/04/2024 THERAPIST: Christen Blair MACHINE: [employer] DIAGNOSIS: Malignant neoplasm of [id number] AREA: PELVIS CONTRAST: IV Oral Consent in [...] NICO 43:17 PM documented in this encounter [facility] 09-04-2024 Note [facility] 09-03-[address] - 09/03/2024 [...] peanut butter, etc. documented in this encounter [facility] 09-03-2024 Note [facility] 09-03-2024 History of Present illness Narrative Oncology Nutrition Therapy Initial Assessment I have communicated my name and active licensure. The patient's identity and physical location were verified at the time of this visit. Either the patient or their legal order entry representative has been informed of the risks [...] dropped down 210-212#. States been stable since. [place] Body Weight: 63.8kg Estimated kilocalorie needs: 4568-5170 kilocalories determined by 30-35 kcal/kg Estimated protein needs: 76-96 grams determined by 1.2-1.5 g/kg [place] weight Estimated fluid needs: ~8300-8629 milliliters based on 1 mL per kcal [...] Heredia RD, LD documented in this encounter [facility] 08-31-2024 Telephone encounter Note I contacted Brian [...] He wishes to pursue surveillance cystoscopy at [place] and I will reach out to my partners there to schedule. Elliott Sanchez MD [facility] 08-31-2024 Miscellaneous Notes I contacted Brian Oneal [...] He wishes to pursue surveillance cystoscopy at [place] and I will reach out to my partners there to schedule. Elliott Sanchez MD documented in this encounter [facility] 08-28-2024 Telephone encounter Note I made a phone appointment for Renu to follow up with him as his future appointments that are currently scheduled could not accommodate with Renu's schedule in person. Thanks! Shirley Bernabe [facility] 08-28-2024 Miscellaneous Notes I made a phone [...] Abril Gardner RN documented in this encounter [facility] 08-28-2024 Telephone encounter Note Please schedule pt with Renu in coordination with one of his upcoming appointments please. Thanks Abril Gardner RN [facility] 08-28-2024 Telephone encounter Note I signed. Thanks. [facility] 08-28-2024 Telephone encounter Note Please sign pending orders for treatment Thanks Abril Gardner RN [facility] 08-28-2024 Telephone encounter Note Called patient to confirm date and time for chemo education [facility] 08-28-2024 Miscellaneous Notes Called patient to confirm date and time for chemo education Patient scheduled for Chemo Education after Dr. Tenorio appointment on 09/07. I will call patient to confirm Can you please schedule pt for chemo ed. Thanks Abril Gardner RN I sent Xeloda prescription to pharmacy. We will do xeloda with radiation for rectal cancer. Thanks documented in this encounter [facility] 08-28-2024 Telephone encounter Note Patient scheduled for Chemo Education after Dr. Tenorio appointment on 09/07. I will call patient to confirm [facility] 08-27-2024 Telephone encounter Note Can you please schedule pt for chemo ed. Thanks Abril Gardner RN [facility] Work Phone: 08-27-2024 Telephone encounter Note Ambulatory Pharmacy Prior Authorization Note Provider Intervention Required?: No- Pharmacy completed on your behalf. Rx Plan: Other: Medicare A/B Drug: Capecitabine Additional Information: [id number] $0 - will bill to Medicare Part B upon grain picker Patient will need Chemo ED. Drug/Drug Interacton: Pantoprazole/Capecitabine - will need addressed For questions relating to this submission, please contact [facility] Pharmacy at [phone] [facility] Work Phone: 08-27-2024 Miscellaneous Notes Ambulatory Pharmacy Prior Authorization Note Provider Intervention Required?: No- Pharmacy completed on your behalf. Rx Plan: Other: Medicare A/B Drug: Capecitabine Additional Information: [id number] $0 - will bill to Medicare Part B upon grain picker Patient will need Chemo ED. Drug/Drug Interacton: Pantoprazole/Capecitabine - will need addressed For questions relating to this submission, please contact [facility] Pharmacy at [phone] documented in this encounter [facility] 08-27-2024 Telephone encounter Note I sent Xeloda prescription to pharmacy. We will do xeloda with radiation for rectal cancer. Thanks [facility] 08-27-2024 Instructions Fred Gonzalez MD - 08/27/2024 1:31 PM EDT F/u on 09/07/24. Will order xeloda chemo pills. documented in this encounter [facility] 08-27-2024 History of Present illness Narrative PATIENT NAME: Brian Oneal CLINIC NO.: [id number] ATTENDING PHYSICIAN: Fred Gonzalez MD DATE OF SERVICE: 08/27/[address] Jeremie Coyne [address] [facility] [address] thank you for referring Brian Oneal for [...] 11, 2024 through June 26, 2024 at [facility]. He was initially admitted to [facility] on June 04, 2024 for planned heart catheterization. This showed significant coronary artery disease CABG was recommended. During the hospitalization he had bloody stool since Eliquis was started in April and GI was consulted. EGD on June 05, 2024 in [place] showed erosive gastropathy with hematin throughout the [...] contrast June 05, 2024 and reviewed by [facility] radiology showing indeterminate subcentimeter pulmonary nodules. No prior imaging for review. Interstitial lung abnormalities noted. Clinical and PFT correlation recommended. CT scan abdomen and pelvis with contrast June 05, 2024 and reviewed by [facility] radiology shows a 1.5 cm sessile polypoid bladder mass concerning for neoplasm. The rectal mass seen on MRI is not identifiable. MRI of the pelvis without contrast June 09, 2024 reviewed by [facility] radiology shows a 2.4 cm mass penetrating [...] Range Status 07/30/2024 9.1 % Final Abs Ferry Date Value Ref Range Status 07/30/2024 0.62 [...] was seen by Dr. Coyne at the [facility]. His recommendations were to do a [...] for the bladder cancer as per the [facility] physician recommendations. - He refused bladder and rectal cancer surgeries. - F/u with [facility] here. F/u with . - All his questions answered in detail - Follow-up in [address] Jeremie Coyne [address] [facility] [address] thank you for allowing me to participate in [facility], if there are any questions or concerns please do not hesitate to contact me at the number below. I spent a total of 30 minutes on the date of the service which included preparing to see the patient, [id number] patient care, completing clinical documentation, obtaining and/or reviewing separately obtained history, performing a medically appropriate examination, counseling and educating the patient/family/caregiver, ordering medications, tests, or procedures, communicating with other HCPs (not separately reported), independently interpreting results (not separately reported), communicating results to the patient/family/caregiver, and care coordination (not separately reported). Fred Gonzalez MD. Hematology/Medical Oncology [facility] [phone] CC: documented in this encounter [facility] 08-27-2024 Note [facility] 08-27-2024 Telephone encounter Note Patient scheduled for pre sim and sim 09/04 at 230. Patient was in office seeing Dr. Tenorio, I gave him a printout with dates and times and explained to him. [facility] 08-27-2024 Miscellaneous Notes Patient scheduled for pre [...] the cracks. Thanks!! documented in this encounter [facility] 08-27-2024 Telephone encounter Note PSS- per Dr [...] of pet. Thank you Sophy Eid RN [facility] 08-26-2024 Telephone encounter Note PSS - This is the pt we discussed in tumor board this am. Please schedule as below-- SIM arrival will need to be 1 hour prior to SIM appt time for oral contrast (pre sim consent) Can have Rad Ed also same day. Also schedule PET JORDAN. Thanks! Sophy Eid RN [facility] 08-26-2024 Telephone encounter Note Images from the [...] him to slip thru the cracks. Thanks!! [facility] 08-26-2024 Telephone encounter Note ----- Message from [...] him to slip thru the cracks. Thanks!! [facility] 08-25-2024 Telephone encounter Note I contacted Brian [...] long as he could receive treatment in [place] which we can coordinate and pursue surveillance cystoscopy with one of my partners at [facility] which I could coordinate. As it [...] rest of the team. Elliott Sanchez MD [facility] Work Phone: 08-25-2024 Miscellaneous Notes I contacted [...] long as he could receive treatment in [place] which we can coordinate and pursue surveillance cystoscopy with one of my partners at [facility] which I could coordinate. As it [...] Elliott Sanchez MD documented in this encounter [facility] 08-20-2024 Note [facility] 08-18-2024 History of Present illness Narrative [facility] PRE-OP NOTE Brian [...] and Signed: Yes. Pre-op H&P Done by [facility]: Yes. PATIENT INSTRUCTIONS FOR SURGERY 1.) DO [...] Joaquina Dacosta APRN.CNP documented in this encounter [facility] 08-18-2024 Note [facility] 08-17-2024 Telephone encounter Note Greetings Dr. Wilder, [...] proceed? Thank you. Sincerely, Riya Liu PA-C [facility] 08-17-[address] Wilder, This [...] proceed? Thank you. Sincerely, Riya Liu PA-C [employer] [facility] documented in this encounter [facility] 08-17-2024 History and physical note Images from [...] atorvastatin (Lipitor). 4. Coronary artery disease involving huslia coronary artery of huslia heart without angina pectoris Left heart cath [...] exam. Stable. 6. RVF (right ventricular failure) ([facility]) 7. Pacemaker Pacemaker placed in 2021. Last [...] mass in May 2024 during colonoscopy in [place]. No previous treatments have been done. See [...] 2024. When he had a colonoscopy in [place] which a rectal mass was found and [...] fevers. 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 No neurological symptoms or problems. Respiratory: +TEJ, former smoker, mild FRANCO with bending over Negative for Asthma, COPD, Current cough, Home O2, Pneumonia within 6 weeks (date), URI < 2 weeks, Wheezing Cardiovascular: +HTN, HLD, CAD, RVF, Afib s/p CABGx3, MAZE, RUSS clip (06/18/24), pacemaker placed [address], Angina, Chest Pain, CHF, DVT/PE GI: See [...] Kidney Disease) Stage 3, Gfr 30-59 Ml/Min ([facility]) Rvf (Right Ventricular Failure) ([facility]) Encounter for Support and Coordination of Transition of Care Hypervolemia Tej (Obstructive Sleep Apnea) Obesity, Class II, 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.9 History of Prostate Cancer Anemia Obesity (Bmi 30-39.9) Covid Immunization Dates Overdue - Covid-19 Vaccine () Overdue since 07/12/2024 11/14/2023 Imm Admin: COVID-19 vaccine, age 12+ yr, 2022- season ([place]) 10/31/2021 Outside Immunization: COVID-19 (MODERNA), MRNA, LNP-S, [...] 394 QTC Calculation ([place]azett) 428 Calculated R [place] -9 Calculated T [place] 47 Impression ATRIAL-PACED RHYTHM WITH PROLONGED AV CONDUCTION NONSPECIFIC INTRAVENTRICULAR BLOCK ANTERIOR T WAVE ABNORMALITY ABNORMAL ECG Confirmed by DON MARCUS, MAK ([id number]) on 07/21/2024 10:23:25 PM Most recent Echo Recent Results (from the past 82043 hour(s)) ECHO Collection Time: 06/13/24 7:29 AM [...] Brian Oneal DATE: 08/17/2024 TIME: 2:00 PM [facility] 08-17-2024 History and physical note Images from [...] atorvastatin (Lipitor). 4. Coronary artery disease involving huslia coronary artery of huslia heart without angina pectoris Left heart cath [...] mass in May 2024 during colonoscopy in [place]. No previous treatments have been done. See [...] 2024. When he had a colonoscopy in [place] which a rectal mass was found and [...] fevers. 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 No neurological symptoms or problems. Respiratory: +TEJ, former smoker, mild FRANCO with bending over Negative for Asthma, COPD, Current cough, Home O2, Pneumonia within 6 weeks (date), URI < 2 weeks, Wheezing Cardiovascular: +HTN, HLD, CAD, RVF, Afib s/p CABGx3, MAZE, RUSS clip (06/18/24), pacemaker placed [address], Angina, Chest Pain, CHF, DVT/PE GI: See [...] Kidney Disease) Stage 3, Gfr 30-59 Ml/Min ([facility]) Rvf (Right Ventricular Failure) ([facility]) Encounter for Support and Coordination of Transition of Care Hypervolemia Tej (Obstructive Sleep Apnea) Obesity, Class II, Bmi 35-39.9 History of Prostate Cancer Anemia Obesity (Bmi 30-39.9) Covid Immunization Dates Overdue - Covid-19 Vaccine (2023- season) Overdue since 07/12/2024 11/14/2023 Imm Admin: COVID-19 vaccine, age 12+ yr, 2022- season ([place]) 10/31/2021 Outside Immunization: COVID-19 (MODERNA), MRNA, LNP-S, [...] 394 QTC Calculation (Bazett) 428 Calculated R [place] -9 Calculated T [place] 47 Impression ATRIAL-PACED RHYTHM WITH PROLONGED AV CONDUCTION NONSPECIFIC INTRAVENTRICULAR BLOCK ANTERIOR T WAVE ABNORMALITY ABNORMAL ECG Confirmed by DON MARCUS, MAK ([id number]) on 07/21/2024 10:23:25 PM Most recent Echo Recent Results (from the past 04504 hour(s)) ECHO Collection Time: 06/13/24 7:29 AM [...] TIME: 2:00 PM documented in this encounter [facility] 08-14-2024 Instructions Riya Liu PA-C - 08/14/2024 1:22 PM EDT Images from the original note were not included. [facility] PATIENT PREOPERATIVE INSTRUCTIONS Elliott Sanchez MD has scheduled you for your procedure at this surgery center: [facility] [place] Scheduling Office: [phone] --[address] [place] [address]. Your surgeon ordered blood work which should be completed today from 08/14/24. Arrival Time for Surgery: - To obtain your arrival time for surgery, call your physician's office the day before your surgery. - If your surgery is scheduled for Saturday, call the Saturday before. Your surgeon s central scheduler will tell you what time to call the office. - If you have not reached the departmental central scheduler by 5 P.M., call [phone] after 5 P.M. the day before your [...] or other anticoagulants without consulting with your carry out clerk or prescribing physician. - Stop Vitamin E, [...] Procedures: - YOU MUST HAVE A RESPONSIBLE APN TAKE YOU HOME. A LOGGING TRUCK DRIVER OR KILN TENDER CANNOT BE MADE A RESPONSIBLE APN. - We recommend that a responsible person stays with you overnight to take care of you. - You cannot stay in a hotel alone after outpatient surgery. You will not be permitted to have your surgery, if you do not have someone to take care of you. If you already have an Advance Directive, please fax a copy to [phone] or email to for it to be [...] Riya Liu PA-C documented in this encounter [facility] 08-14-2024 History of Present illness Narrative Radiology [...] PATIENT PRESENTS WITH AN IMPLANTABLE OR ATTACHED MANUSCRIPTS ARCHIVIST: No RADIOLOGY DEPARTMENT: CT; Exam(s) Completed: Chest Abdomen Pelvis PERIPHERAL IV DATA: Site assessment: Clean,Dry and Intact, Site disposition Discontinued SIGNED BY: Antonina Alarcon, RT(R) August 14, 2024 1:09 PM documented in this encounter [facility] 08-14-2024 Note [facility] 08-14-2024 Note [facility] 08-11-2024 Note Pt is here for a two week follow up. Pt denies sob, chest pain, palpatations. Review of Systems All other systems reviewed and are negative. [facility] 08-11-2024 Note Cardiovascular Medic [facility] SUBJECTIVE Chief Complaint Patient presents with [...] 07/29/2024 He recently underwent a CABG at [facility]. He was discharged from rehab yesterday. Post [...] and time. Psychiatric: (more content not included)... [facility] 08-04-[address] Earl's consult notes were faxed to Barbara in radiation oncology at [place] as requested. Christen GIRALDO, CATRACHITO Specialty Hydro Sprayer Operator [facility] Work Phone: 08-04-[address] Earl's consult notes were faxed to Barbara in radiation oncology at [place] as requested. Christen GIRALDO, CATRACHITO Specialty Hydro Sprayer Operator documented in this encounter [facility] 08-04-2024 Telephone encounter Note Called to see if pt scheduled. Sharri working on scheduling. Dr Sanchez is out of the office this week. Typically takes a couple of weeks to schedule. AV: ANTHONY Chand RN [facility] 08-04-2024 Miscellaneous Notes Called to see if [...] Gemma Chand RN documented in this encounter [facility] 07-30-2024 Note [facility] 07-30-2024 History of Present illness Narrative Radiation Oncology - Follow Up Note PATIENT NAME: Brian Oneal PATIENT Signed by: Noah Harrison MD I spent a total of 30 minutes on the date of the service which included preparing to see the patient, scwo-ao-beux patient care, and counseling and educating the patient/family/caregiver. This document has been created with the use of voice recognition technology. It may contain inaccuracies, misspellings, inaccurate syntax or inappropriate word context that are a result of the inadequacies/shortcomings of said technology/software. documented in this encounter [facility] 07-30-[address] Sanchez's ASSESSMENT/PLAN: Bladder neoplasm, requiring TURBT. Reviewed r/b/a and post-op expectations including need for catheter. Will review with Clayton Del Rio, and Duong. Ok to continue ASA 81 through surgery. Called and spoke with office, nurse is working on scheduling. Dr Montalvo would like to know date, once pt is scheduled for TURBT. Gemma Chand RN [facility] 07-30-2024 History of Present illness Narrative PATIENT NAME: Brian Oneal [facility] NO.: [id number] ATTENDING PHYSICIAN: Fred Gonzalez MD DATE OF SERVICE: July 30, [address] Jeremie Coyne [address] [facility] [address] thank you for referring Brian Oneal for [...] 11, 2024 through June 26, 2024 at [facility]. He was initially admitted to [facility] on June 04, 2024 for planned heart catheterization. This showed significant coronary artery disease CABG was recommended. During the hospitalization he had bloody stool since Eliquis was started in April and GI was consulted. EGD on June 05, 2024 in [place] showed erosive gastropathy with hematin throughout the [...] contrast June 05, 2024 and reviewed by [facility] radiology showing indeterminate subcentimeter pulmonary nodules. No prior imaging for review. Interstitial lung abnormalities noted. Clinical and PFT correlation recommended. CT scan abdomen and pelvis with contrast June 05, 2024 and reviewed by [facility] radiology shows a 1.5 cm sessile polypoid bladder mass concerning for neoplasm. The rectal mass seen on MRI is not identifiable. MRI of the pelvis without contrast June 09, 2024 reviewed by [facility] radiology shows a 2.4 cm mass penetrating [...] Range Status 06/11/2024 9.9 % Final Abs [place] Date Value Ref Range Status 06/11/2024 0.83 [...] in [address] Jeremie Coyne [address] [facility] [address] thank you for allowing me to participate in Brian Oneal [facility], if there are any questions or concerns please do not hesitate to contact me at the number below. I spent a total of 60 minutes on the date of the service which included preparing to see the patient, layw-iz-cfiq patient care, completing clinical documentation, obtaining and/or reviewing separately obtained history, performing a medically appropriate examination, counseling and educating the patient/family/caregiver, ordering medications, tests, or procedures, communicating with other HCPs (not separately reported), independently interpreting results (not separately reported), communicating results to the patient/family/caregiver, and care coordination (not separately reported). Fred Gonzalez MD. Hematology/Medical Oncology [place] [phone] CC: documented in this encounter [facility] 07-30-2024 Note [facility] 07-30-2024 Instructions Fred Gonzalez MD - 07/30/2024 2:43 PM EDT Ordered labs Ordered scans F/u in 4 weeks. documented in this encounter [facility] 07-30-2024 Nurse Note Pacemaker/Defibrillator?Yes-Info scanned into [employer] and in Epic Previous Cancer(s)?Prostate Cancer Previous Radiation? EBRT with brachy boost Lupus/Scleroderma? N On body monitoring device?N [facility] 07-30-2024 Nurse Note Pacemaker/Defibrillator?Yes-Info scanned into [employer] and in Epic Previous Cancer(s)?Prostate Cancer Previous Radiation? EBRT with brachy boost Lupus/Scleroderma? N On body monitoring device?N documented in this encounter [facility] 07-29-2024 Note [facility] 07-29-2024 History of Present illness Narrative I spent a total of 30 minutes on the date of the service which included preparing to see the patient, kqmu-ai-rdrf patient care, and completing clinical documentation. I [...] visit. Either the patient or their legal order entry representative has been informed of the risks [...] drive again. He is out of the mcc. Understandably this is a very overwhelming time for the patient. The patient is scheduled to see radiation oncology and medical oncology in [place] so that they are ready to go [...] - UGT1A1 Intermediate Metabolizer STAGE (AJCC 8): [id number] (MRI without IV Contrast) - Stage IIA [...] to radiation oncology and medical oncology in [place] which he is scheduled to see this week. Lorelei Morgan MD Hematology/Oncology Fellow documented in this encounter [facility] 07-29-2024 Note [facility] 07-29-2024 Telephone encounter Note Patient has an appt on 07/30. Would you like labs? [facility] 07-29-2024 Miscellaneous Notes Patient has an appt on 07/30. Would you like labs? documented in this encounter [facility] 07-29-2024 Telephone encounter Note Images from the original note were not included. [facility] Phone Encounter DATE of SERVICE: 07/29/2024 TIME of SERVICE: 10:56 AM Status: [facility] Service/Provider: Cardiac Surgery Masood Wilder M.D. Reason for call: Incisions Contact information: Brian Oneal [phone] Resolution: Other - treatment at local [place] Cardiology office Comments: Faye from [place] cardiology called to say they have a [...] Resolution: 07/29/2024 Time of Resolution 10:56 AM [facility] 07-29-2024 Miscellaneous Notes Images from the original note were not included. [facility] Phone Encounter DATE of SERVICE: 07/29/2024 TIME of SERVICE: 10:56 AM Status: FYI Service/Provider: Cardiac Surgery Masood Widler M.D. Reason for call: Incisions Contact information: Brian Oneal [phone] Resolution: Other - treatment at local [place] Cardiology office Comments: Faye from [place] cardiology called to say they have a [...] Resolution 10:56 AM documented in this encounter [facility] 07-29-2024 Note *Okay to drive from cardiology standpoint. *Will send referral to cardiac rehab. *Monitor your blood pressure 2 hours after morning medications. We will call you in 2 weeks for readings. *We will let you know what [facility] says about your right leg wound. [facility] 07-29-2024 Note Patient here for fol low up CABG at [facility]. Doing very well s/p CABG. Has some swelling in his RLE from vein harvest. He states it looks much better and did have huge water blisters on it. Review of Systems Cardiovascular: Positive for leg swelling. Respiratory: Positive for shortness of breath (bendopnea). Hematologic/Lymphatic: Bruises/bleeds easily. Skin: Positive for color change. All other systems reviewed and are negative. [facility] 07-29-2024 Note Cardiovascular Medic [facility] SUBJECTIVE Chief Complaint Patient presents with Coronary Artery Disease Brian Oneal is a 74 y.o. male here for follow-up after his recent CABG x3. HPI PMHx: CAD S/P on 06/18/2024 CABGx3 (WREN-LAD, SVG-OM1, SVG-PDA), MAZE, LAAC, Right atrial Pacer lead, chronic a.fib, CKD III, SSS s/p PPM, PVD, HLD, HTN 07/29/2024 He recently underwent a CABG at [facility]. He was discharged from rehab yesterday. Post [...] kidney disease) stage 3, GFR 30-59 ml/min ([facility]) Encounter for support and coordination of transition of care Hypervolemia Hyperlipidemia Stress hyperglycemia RVF (right ventricular failure) (CMS/HCC) Rectal cancer (CMS/HCC) Postoperative pain Obesity, Class II, BMI 35-39.9 Obesity, Class I, BMI 30-34.9 Atrial fibrillation, chronic (CMS/HCC) Pacemaker Tight chest Hypertension TEJ (obstructive sleep apnea) Coronary artery disease Past Medical History: Diagnosis Date Abnormal ECG Arrhythmia Atrial fibrillation (CMS/HCC) Cancer ([facility]/HCC) Coronary artery disease Hypertension Sick sinus syndrome ([facility]/HCC) Sinus bradycardia Sleep apnea Syncope Family History [...] Thought Content: Thought (more content not included)... [facility] 07-28-[address] Coyne's completed consult note faxed as requested. Confirmation receipt received. Brianna Grullon RN, BSN Specialty Hydro Sprayer Operator July 28, 2024 [facility] 07-28-[address] Coyne's completed consult note faxed as requested. Confirmation receipt received. Brianna Grullon RN, BSN Specialty Hydro Sprayer Operator July 28, 2024 CATRACHITO Jimenez from [facility] is requesting office notes from yesterday's Jul [address] Coyne and Dr. Earl. The fax number is [phone]. Patient has been identified by name and birthdate. Duration of symptoms: N/A Requesting response back: She can be reached at [phone] if needed. [phone] (home) Ha Henley July 23, 2024 documented in this encounter [facility] 07-23-2024 Telephone encounter Note CATRACHITO Jimenez from [facility] is requesting office notes from yesterday's Jul [address] Coyne and Dr. Earl. The fax number is [phone]. Patient has been identified by name and birthdate. Duration of symptoms: N/A Requesting response back: She can be reached at [phone] if needed. [phone] (home) Ha Henley July 23, 2024 [facility] 07-22-2024 Nurse Note Reviewed and confirmed with patient that there were no changes in the the nursing assessment and vitals that were completed on 07/22/2024 during previous provider appointment. Jihan Rahman RN [facility] 07-22-2024 Nurse Note Reviewed and confirmed with patient that there were no changes in the the nursing assessment and vitals that were completed on 07/22/2024 during previous provider appointment. Jihan Rahman RN documented in this encounter [facility] 07-22-2024 History of Present illness Narrative DIAGNOSIS: Rectal adenocarcinoma STAGE (AJCC 8): [id number]: stage II BIOMARKERS: Initial CEA: 3 MMR: [...] on Saturday regarding further treatment. Patient from [facility] so wants to follow up closer to home. We will place referrals to [place] 2. Bladder Mass - following with urology [...] included preparing to see the patient and sual-wg-uhga patient care. I have reviewed the progress [...] [] UGT1A1 - [] STAGE (AJCC 8): [id number] (MRI without IV Contrast) - Stage IIA [...] 11, 2024 through June 26, 2024 at [facility]. He was initially admitted to [facility] on June 04, 2024 for planned heart catheterization. This showed significant coronary artery disease CABG was recommended. During the hospitalization he had bloody stool since Eliquis was started in April and GI was consulted. EGD on June 05, 2024 in [place] showed erosive gastropathy with hematin throughout the [...] was performed. The patient was transferred to [facility] for further evaluation. Echocardiogram showed ejection fraction of 55%. He was started on heparin and aspirin. The patient was taken to the operating room on June 18, 2024 for CABG x 3. Maze procedure RUSS clip and right atrial pacer lead performed Imaging has included: CT scan of the chest with contrast June 05, 2024 and reviewed by [facility] radiology showing indeterminate subcentimeter pulmonary nodules. No prior imaging for review. Interstitial lung abnormalities noted. Clinical and PFT correlation recommended. CT scan abdomen and pelvis with contrast June 05, 2024 and reviewed by [facility] radiology shows a 1.5 cm sessile polypoid bladder mass concerning for neoplasm. The rectal mass seen on MRI is not identifiable. MRI of the pelvis without contrast June 09, 2024 reviewed by [facility] radiology shows a 2.4 cm mass penetrating [...] to radiation oncology and medical oncology in [place]. Jeremie Coyne MD documented in this encounter [facility] 07-22-2024 Note [facility] 07-22-2024 Note [facility] 07-22-2024 Note [facility] 07-22-2024 History of Present illness Narrative Radiation Oncology - New Patient/Consult Note PATIENT NAME: Brian Oneal PATIENT REQUESTING PROVIDER: Dr. Micha Avina. DIAGNOSIS: 74 y/o M with h/o prostate cancer previously treated with pelvic RT and LDR brachytherapy seed implant in [place] (2009), now with [id number] invasive adenocarcinoma of the low rectum with [...] Per his report, he was treated at [facility] in [place] with Dr. Piedra using a combination of LDR brachytherapy seed implant and pelvic XRT (details not in Mosai[facility] for review). He has done well from a prostate cancer standpoint, but more recently presented to the [facility] for a planned cardiac catheterization on 06/04/2024. At that time, he was found to have anemia and underwent EGD and colonoscopy on 06/05/2024. EGD was negative, but colonoscopy showed a mass in the rectum that was bx-proven invasive adenocarcinoma. He was transferred to [facility] and underwent CABG x 3v [...] further evaluation. Pathology (06/05/2024): FINAL DIAGNOSIS [facility], [place], [place]; [id number] (06/05/2024) 1. Stomach, biopsy (A): - Gastric oxyntic and antral mucosa with mild reactive epithelial changes and focal mild chronic inflammation. - No definitive morphologic evidence of Helicobacter pylori organisms. 2. Colon, transverse, polyp, biopsy (B): - Hyperplastic polyp. 3. Rectum, mass, biopsy (C): - Invasive moderately differentiated adenocarcinoma. MRI Pelvis - [facility] Overread (06/09/2024): IMPRESSION: Suboptimal imaging [...] Former Types: Cigarettes Smokeless tobacco: Never Residence: [place], [place] Occupation: Retired COMPLETE REVIEW OF SYSTEMS: [...] RT and LDR brachytherapy seed implant in [place] (2009), now with [id number] invasive adenocarcinoma of the low rectum with [...] to receive any chemo and radiation in [place]. At the end of our visit, she was given my contact information and encouraged to call with any questions or concerns that may arise. Signed by: Sangeetha Earl MD cc: Elliot Decker [address] [place] [address] Micha Avina [address] [place] [id number] Jeremie Coyne [facility] Noah Harrison [facility] documented in this encounter [facility] 07-22-2024 History of Present illness Narrative COLORECTAL [...] of anal sphincter. Patient initially presented to [facility] for a planned heart catheterization on 06/04/24. [...] Visit dated 07/03/2024 completed by Tamiko Mcduffie APRN.WAGON DRIVER SALESPERSON (Cardiovascular Surgery): IMPRESSION & PLAN: Surgeon: Masood [...] NONSPECIFIC INTRAVENTRICULAR BLOCK Vent. rate 71 BPM AR interval 212 ms QRS duration 126 ms [...] wound care daily to right leg at [facility] - pt should have HHC once d/c from [facility] pt to start bactrim and order sent to [facility] in [place], [place] pt advised that he needs to return to see me for assessment of right svg wound Summary: Follow up with PCP next week Follow up with carry out clerk in 4-6 weeks. Call CTS OPD with [...] year old male who initially presented to [facility] for a planned heart catheterization on 06/04/24. [...] was made to transfer the patient to [facility] for further management. He has received prior [...] mass demonstrating adenocarcinoma. He was transferred to [facility] for further evaluation. He was initially [...] Heparin infusion. He was transferred to the [facility] service on 06/15. He was started on aspirin. Airway Difficulty: Grade I - George Pacing Wires: X4 Ventricular wires (pull) Surgeries and Major Events: 06/18/2024: CABGx3 (WREN-LAD, SVG-OM1, SVG-PDA), MAZE, RUSS Clip (35), Right atrial Pacer lead A/P of Major Active Problems: Transferred to [facility] on 06/21/24 Neuro: Post op pain: S/p pecs block 06/20/2024. States pain is controled. Continue PRN Tylenol/Oxycodone/Ultram. Cardiac: Sick sinus syndrome s/p pacemaker: intra-op issues with intrinsic PPM, right atrial lead placed and connected. Device check 06/19: AP, CLIENT SERVICES ADMINISTRATOR. Continue DDD pacing @ 100bpm. No RA [...] and reviewed post op findings w/ [facility] data quality consultant. Hematology: Coagulopathy: s/p OR. Required 2 platelet. Resolved, plts normalized. Acute blood loss anemia: s/p OR. Transfused 1 unit of PRBC's on 06/23. Current H&H 9.0/28.7 Endo: Stress Hyperglycemia: No DM history. Perioperative insulin resistance and exacerbation of hyperglycemia. SSI for glycemic control. DC'd accu checks Discharge: 74 yr old male who lives in [place], [place] (near [place]). PT recs SNF. CM following, bed and transport were arranged, ok to transfer today per CTS. Prefers to follow up locally d/t distance (PCP 1 week after discharge from SNF, Self Storage Manager in 4 weeks). Will f/u at for [...] scheduled with Colorectal Surgery Dr. Avina at [facility] on 07/22/2024. - Scans were completed at [...] abdomen or pelvis. COLONOSCOPY dated 06/05/2024 @ [facility] (Care Everywhere): Impression: - Scattered sessile [...] Biopsied. - External hemorrhoids. Pathology (Overread): [facility], [place], [place]; [id number] (06/05/2024) 1. Stomach, biopsy (A): - Gastric [...] closed Resting tone: NORMAL Squeeze tone: NORMAL Wood Pattern Maker present: Yes, Yoly Griffiths Flexible sigmoidoscopy: Procedure: [...] colon based on the colonoscopy report from [place]. We would also like to repeat his [...] treatment plan: high documented in this encounter [facility] 07-22-2024 Note [facility] 07-22-2024 Nurse Note Additional intake questions: Has the patient had fever, nausea, vomiting, diarrhea, constipation, fatigue for > 1 week? Yes, fatigue and Provider Notified Does the patient have a decreased appetite? No Does patient want to see a Gear Cutting Machine Set Up Operator? No (yes to any of above refer patient to schedulers for dietitian appointment) ) Does patient have any new or increased numbness or tingling of extremities? Yes, Left hand Is patient interested in fertility information? No Does patient need any prescription refills? No Does patient have an advanced directive in place? Yes, copies are in [employer] [facility] 07-22-2024 Nurse Note Additional intake questions: Has the patient had fever, nausea, vomiting, diarrhea, constipation, fatigue for > 1 week? Yes, fatigue and Provider Notified Does the patient have a decreased appetite? No Does patient want to see a Gear Cutting Machine Set Up Operator? No (yes to any of above refer patient to schedulers for dietitian appointment) ) Does patient have any new or increased numbness or tingling of extremities? Yes, Left hand Is patient interested in fertility information? No Does patient need any prescription refills? No Does patient have an advanced directive in place? Yes, copies are in [employer] documented in this encounter [facility] 07-22-2024 History of Present illness Narrative Images from the original note were not included. [place] [address] AMBULATORY PROCEDURE NOTE NAME: Brian Oneal AGE: [id number] year old CLINIC #: [id number] DATE: July 22, 2024 SURGEON: Elliott Sanchez [...] By signing my name below, I, Radames Baez, attest that this documentation has been prepared [...] Jessica Kovacs RN documented in this encounter [facility] 07-22-2024 Note [facility] 07-22-2024 Nurse Note Actual procedure/procedure scheduled: Yes Performing provider/scheduled provider: Yes Patient was roomed in: Q9- 10 Wood Pattern Maker offered:Patient declines Patient arrived in the room [...] Education Session: None Instruction Provided To: Patient Malt Roaster Present: not applicable Discipline: Nursing Learning Topic: SURVIVAL SKILLS: Symptom Management Patient Evaluation: Verbalizes understanding: Yes Supplemental Material Given: Written Material Instructed By Jessica Kovacs RN In Department Urology . [facility] 07-22-2024 Note [facility] 07-22-2024 Nurse Note Actual procedure/procedure scheduled: Yes Performing provider/scheduled provider: Yes Patient was roomed in: Q9- 10 Wood Pattern Maker offered:Patient declines Patient arrived in the room [...] Education Session: None Instruction Provided To: Patient Malt Roaster Present: not applicable Discipline: Nursing Learning Topic: SURVIVAL SKILLS: Symptom Management Patient Evaluation: Verbalizes understanding: Yes Supplemental Material Given: Written Material Instructed By Jessica Kovacs RN In Department Urology . documented in this encounter [facility] 07-03-2024 History of Present illness Narrative Images from the original note were not included. [facility] Department of Cardiovascular Medicine DEPARTMENT OF CARDIAC SURGERY OUTPATIENT VISIT DATE July 03, 2024 OUTPATIENT VISIT TYPE POSTOPERATIVE Brian Oneal is a 74 year old male who presents who is here for post operative follow up HPI: Surgeon: Masood Wilder M.D S/P on 06/18/2024 CABGx3 (WREN-LAD, SVG-OM1, SVG-PDA), MAZE, LAAC, Right atrial Pacer lead Discharged on 06/26/24 to [facility] view [facility] [phone] No past medical history on file. No [...] along svg site and right foot SV [place] sites: healing, clean, dry and intact, and [...] NONSPECIFIC INTRAVENTRICULAR BLOCK Vent. rate 71 BPM AR interval 212 ms QRS duration 126 ms [...] wound care daily to right leg at [facility] - pt should have HHC once d/c from SNF pt to start bactrim and order sent to [facility] in [place], [place] pt advised that he needs to return to see me for assessment of right svg wound Summary: Follow up with PCP next week Follow up with carry out clerk in 4-6 weeks. Call CTS OPD with [...] prophylaxis reviewed Discussed wound care Tamiko Mcduffie APRN.[employer] documented in this encounter [facility] 07-03-2024 Note [facility] 07-03-2024 History of Present illness Narrative Radiology [...] PATIENT PRESENTS WITH AN IMPLANTABLE OR ATTACHED MANUSCRIPTS ARCHIVIST: No RADIOLOGY DEPARTMENT: General X-ray: Exam(s) Completed: Chest X-Ray PERIPHERAL IV DATA: Not applicable SIGNED BY: RT Chaz(R) July 03, 2024 2:19 PM documented in this encounter [facility] 07-03-2024 Note [facility] 06-26-2024 Note [facility] 06-26-2024 Note [facility] 06-25-2024 Note [facility] 06-25-2024 Note [facility] 06-24-2024 History of Present illness Narrative Rectal Cancer Tumor Board Initial Presentation Date of conference: 06/24/2024. Date of Diagnosis: 06/05/2024. Pathology: Component FINAL DIAGNOSIS [facility], [place], [place]; [id number] (06/05/2024) 1. Stomach, biopsy (A): - Gastric oxyntic and antral mucosa with mild reactive epithelial changes and focal mild chronic inflammation. - No definitive morphologic evidence of Helicobacter pylori organisms. 2. Colon, transverse, polyp, biopsy (B): - Hyperplastic polyp. 3. Rectum, mass, biopsy (C): - Invasive moderately differentiated adenocarcinoma. Performing Lab Diagnostic interpretation performed at [facility], [address] [place] [id number] CLIA# [id number] Imaging Reviewed: MRI of pelvis: 06/09/2024. MRI [...] various treatment options. documented in this encounter [facility] 06-24-2024 Note [facility] 06-24-2024 Note [facility] 06-23-2024 Note [facility] 06-23-2024 Note [facility] 06-23-2024 Note [facility] 06-22-2024 Note [facility] 06-21-2024 Note [facility] 06-20-2024 Note [facility] 06-20-2024 Note [facility] 06-20-2024 Note [facility] 06-19-2024 Note [facility] 06-19-2024 Note [facility] 06-18-2024 Note [facility] 06-18-2024 Note [facility] 06-18-2024 Note [facility] 06-18-2024 Note [facility] 06-18-2024 Note [facility] 06-17-2024 Note [facility] 06-16-2024 Note [facility] 06-15-2024 Note [facility] 06-15-2024 Note [facility] 06-14-2024 Note [facility] 06-14-2024 Note [facility] 06-13-2024 Note [facility] 06-12-2024 Note [facility] 03-23-2022 Note EXAM: XR CHEST 2 V [...] by: ALONSO MASON Date: 2022-03-23 12:58 [facility] Evaluation note Diagnosis Encounter for support and coordination of transition of care- Primary Rectal cancer (HCC) Malignant neoplasm of rectum Primary hypertension Unspecified essential hypertension Coronary artery disease involving huslia coronary artery of huslia heart without angina pectoris Pacemaker Cardiac pacemaker in situ Atrial fibrillation, unspecified type (HCC) Other hyperlipidemia On mechanically assisted ventilation (HCC) Postoperative pain Other acute postoperative pain Rectal cancer (HCC) Malignant neoplasm of rectum Coronary artery disease Coronary atherosclerosis of unspecified type of vessel, huslia or graft Atrial fibrillation, chronic (HCC) Atrial [...] pain, unspecified type documented in this encounter [facility] note* Diagnosis Encounter for support and coordination of transition of care- Primary Rectal cancer (HCC) Malignant neoplasm of rectum Primary hypertension Unspecified essential hypertension Coronary artery disease involving huslia coronary artery of huslia heart without angina pectoris Pacemaker Cardiac pacemaker in situ Atrial fibrillation, unspecified type (HCC) Other hyperlipidemia On mechanically assisted ventilation (HCC) Postoperative pain Other acute postoperative pain Rectal cancer (HCC) Malignant neoplasm of rectum Coronary artery disease Coronary atherosclerosis of unspecified type of vessel, huslia or graft Atrial fibrillation, chronic (HCC) Atrial [...] following unspecified surgery [facility] Diagnosis Encounter for support and coordination of transition of care- Primary Rectal cancer (HCC) Malignant neoplasm of rectum Primary hypertension Unspecified essential hypertension Coronary artery disease involving huslia coronary artery of huslia heart without angina pectoris Pacemaker Cardiac pacemaker in situ Atrial fibrillation, unspecified type (HCC) Other hyperlipidemia On mechanically assisted ventilation (HCC) Postoperative pain Other acute postoperative pain Rectal cancer (HCC) Malignant neoplasm of rectum Coronary artery disease Coronary atherosclerosis of unspecified type of vessel, huslia or graft Atrial fibrillation, chronic (HCC) Atrial [...] 3b CKD (HCC) [facility] Diagnosis Encounter for support and coordination of transition of care- Primary Rectal cancer (HCC) Malignant neoplasm of rectum Primary hypertension Unspecified essential hypertension Coronary artery disease involving huslia coronary artery of huslia heart without angina pectoris Pacemaker Cardiac pacemaker in situ Atrial fibrillation, unspecified type (HCC) Other hyperlipidemia On mechanically assisted ventilation (HCC) Postoperative pain Other acute postoperative pain Rectal cancer (HCC) Malignant neoplasm of rectum Coronary artery disease Coronary atherosclerosis of unspecified type of vessel, huslia or graft Atrial fibrillation, chronic (HCC) Atrial [...] active surveillance (HCC) documented in this encounter [facility] note* Diagnosis Encounter for support and coordination of transition of care- Primary Rectal cancer (HCC) Malignant neoplasm of rectum Primary hypertension Unspecified essential hypertension Coronary artery disease involving huslia coronary artery of huslia heart without angina pectoris Pacemaker Cardiac pacemaker in situ Atrial fibrillation, unspecified type (HCC) Other hyperlipidemia On mechanically assisted ventilation (HCC) Postoperative pain Other acute postoperative pain Rectal cancer (HCC) Malignant neoplasm of rectum Coronary artery disease Coronary atherosclerosis of unspecified type of vessel, huslia or graft Atrial fibrillation, chronic (HCC) Atrial fibrillation Chronic anticoagulation Long-term (current) use of anticoagulants Hypertension Unspecified essential hypertension Hyperlipidemia Other and unspecified hyperlipidemia Pacemaker Cardiac pacemaker in situ On mechanically assisted ventilation ([facility]) Postoperative pain Other acute postoperative pain Stress [...] disorders of bladder documented in this encounter [facility] note* Diagnosis Encounter for support and coordination of transition of care- Primary Rectal cancer (HCC) Malignant neoplasm of rectum Primary hypertension Unspecified essential hypertension Coronary artery disease involving huslia coronary artery of huslia heart without angina pectoris Pacemaker Cardiac pacemaker in situ Atrial fibrillation, unspecified type (HCC) Other hyperlipidemia On mechanically assisted ventilation (HCC) Postoperative pain Other acute postoperative pain Rectal cancer (HCC) Malignant neoplasm of rectum Coronary artery disease Coronary atherosclerosis of unspecified type of vessel, huslia or graft Atrial fibrillation, chronic (HCC) Atrial [...] nature of bladder [facility] Diagnosis Encounter for support and coordination of transition of care- Primary Rectal cancer (HCC) Malignant neoplasm of rectum Primary hypertension Unspecified essential hypertension Coronary artery disease involving huslia coronary artery of huslia heart without angina pectoris Pacemaker Cardiac pacemaker in situ Atrial fibrillation, unspecified type (HCC) Other hyperlipidemia On mechanically assisted ventilation (HCC) Postoperative pain Other acute postoperative pain Rectal cancer (HCC) Malignant neoplasm of rectum Coronary artery disease Coronary atherosclerosis of unspecified type of vessel, huslia or graft Atrial fibrillation, chronic (HCC) Atrial [...] neoplasm of rectum [facility] Diagnosis Encounter for support and coordination of transition of care- Primary Rectal cancer (HCC) Malignant neoplasm of rectum Primary hypertension Unspecified essential hypertension Coronary artery disease involving huslia coronary artery of huslia heart without angina pectoris Pacemaker Cardiac pacemaker in situ Atrial fibrillation, unspecified type (HCC) Other hyperlipidemia On mechanically assisted ventilation (HCC) Postoperative pain Other acute postoperative pain Rectal cancer (HCC) Malignant neoplasm of rectum Coronary artery disease Coronary atherosclerosis of unspecified type of vessel, huslia or graft Atrial fibrillation, chronic (HCC) Atrial [...] neoplasm of prostate [facility] Diagnosis Encounter for support and coordination of transition of care- Primary Rectal cancer (HCC) Malignant neoplasm of rectum Primary hypertension Unspecified essential hypertension Coronary artery disease involving huslia coronary artery of huslia heart without angina pectoris Pacemaker Cardiac pacemaker in situ Atrial fibrillation, unspecified type (HCC) Other hyperlipidemia On mechanically assisted ventilation (HCC) Postoperative pain Other acute postoperative pain Rectal cancer (HCC) Malignant neoplasm of rectum Coronary artery disease Coronary atherosclerosis of unspecified type of vessel, huslia or graft Atrial fibrillation, chronic (HCC) Atrial [...] neoplasm of rectum documented in this encounter [facility] note* Diagnosis Encounter for support and coordination of transition of care- Primary Rectal cancer (HCC) Malignant neoplasm of rectum Primary hypertension Unspecified essential hypertension Coronary artery disease involving huslia coronary artery of huslia heart without angina pectoris Pacemaker Cardiac pacemaker in situ Atrial fibrillation, unspecified type (HCC) Other hyperlipidemia On mechanically assisted ventilation (HCC) Postoperative pain Other acute postoperative pain Rectal cancer (HCC) Malignant neoplasm of rectum Coronary artery disease Coronary atherosclerosis of unspecified type of vessel, huslia or graft Atrial fibrillation, chronic (HCC) Atrial [...] neoplasm of rectum documented in this encounter [facility] note* Diagnosis Encounter for support and coordination of transition of care- Primary Rectal cancer (HCC) Malignant neoplasm of rectum Primary hypertension Unspecified essential hypertension Coronary artery disease involving huslia coronary artery of huslia heart without angina pectoris Pacemaker Cardiac pacemaker in situ Atrial fibrillation, unspecified type (HCC) Other hyperlipidemia On mechanically assisted ventilation (HCC) Postoperative pain Other acute postoperative pain Rectal cancer (HCC) Malignant neoplasm of rectum Coronary artery disease Coronary atherosclerosis of unspecified type of vessel, huslia or graft Atrial fibrillation, chronic (HCC) Atrial [...] neoplasm of rectum [facility] Diagnosis Encounter for support and coordination of transition of care- Primary Rectal cancer (HCC) Malignant neoplasm of rectum Primary hypertension Unspecified essential hypertension Coronary artery disease involving huslia coronary artery of huslia heart without angina pectoris Pacemaker Cardiac pacemaker in situ Atrial fibrillation, unspecified type (HCC) Other hyperlipidemia On mechanically assisted ventilation (HCC) Postoperative pain Other acute postoperative pain Rectal cancer (HCC) Malignant neoplasm of rectum Coronary artery disease Coronary atherosclerosis of unspecified type of vessel, huslia or graft Atrial fibrillation, chronic (HCC) Atrial [...] disorders of bladder [facility] Diagnosis Encounter for support and coordination of transition of care- Primary Rectal cancer (HCC) Malignant neoplasm of rectum Primary hypertension Unspecified essential hypertension Coronary artery disease involving huslia coronary artery of huslia heart without angina pectoris Pacemaker Cardiac pacemaker in situ Atrial fibrillation, unspecified type (HCC) Other hyperlipidemia On mechanically assisted ventilation ([facility]) Postoperative pain Other acute postoperative pain Rectal cancer (HCC) Malignant neoplasm of rectum Coronary artery disease Coronary atherosclerosis of unspecified type of vessel, huslia or graft Atrial fibrillation, chronic (HCC) Atrial [...] hypertension Mixed hyperlipidemia Coronary artery disease involving huslia coronary artery of huslia heart without angina pectoris Atrial fibrillation, chronic [...] disorders of bladder documented in this encounter [facility] note* Diagnosis Encounter for support and coordination of transition of care- Primary Rectal cancer (HCC) Malignant neoplasm of rectum Primary hypertension Unspecified essential hypertension Coronary artery disease involving huslia coronary artery of huslia heart without angina pectoris Pacemaker Cardiac pacemaker in situ Atrial fibrillation, unspecified type (HCC) Other hyperlipidemia On mechanically assisted ventilation (HCC) Postoperative pain Other acute postoperative pain Rectal cancer (HCC) Malignant neoplasm of rectum Coronary artery disease Coronary atherosclerosis of unspecified type of vessel, huslia or graft Atrial fibrillation, chronic (HCC) Atrial [...] hypertension Mixed hyperlipidemia Coronary artery disease involving huslia coronary artery of huslia heart without angina pectoris Atrial fibrillation, chronic [...] disorders of bladder [facility] Diagnosis Encounter for support and coordination of transition of care- Primary Rectal cancer (HCC) Malignant neoplasm of rectum Primary hypertension Unspecified essential hypertension Coronary artery disease involving huslia coronary artery of huslia heart without angina pectoris Pacemaker Cardiac pacemaker in situ Atrial fibrillation, unspecified type (HCC) Other hyperlipidemia On mechanically assisted ventilation (HCC) Postoperative pain Other acute postoperative pain Rectal cancer (HCC) Malignant neoplasm of rectum Coronary artery disease Coronary atherosclerosis of unspecified type of vessel, huslia or graft Atrial fibrillation, chronic (HCC) Atrial [...] disorders of bladder [facility] Diagnosis Encounter for support and coordination of transition of care- Primary Rectal cancer (HCC) Malignant neoplasm of rectum Primary hypertension Unspecified essential hypertension Coronary artery disease involving huslia coronary artery of huslia heart without angina pectoris Pacemaker Cardiac pacemaker in situ Atrial fibrillation, unspecified type (HCC) Other hyperlipidemia On mechanically assisted ventilation (HCC) Postoperative pain Other acute postoperative pain Rectal cancer (HCC) Malignant neoplasm of rectum Coronary artery disease Coronary atherosclerosis of unspecified type of vessel, huslia or graft Atrial fibrillation, chronic (HCC) Atrial [...] unspecified genitourinary condition [facility] Diagnosis Encounter for support and coordination of transition of care- Primary Rectal cancer (HCC) Malignant neoplasm of rectum Primary hypertension Unspecified essential hypertension Coronary artery disease involving huslia coronary artery of huslia heart without angina pectoris Pacemaker Cardiac pacemaker in situ Atrial fibrillation, unspecified type (HCC) Other hyperlipidemia On mechanically assisted ventilation (HCC) Postoperative pain Other acute postoperative pain Rectal cancer (HCC) Malignant neoplasm of rectum Coronary artery disease Coronary atherosclerosis of unspecified type of vessel, huslia or graft Atrial fibrillation, chronic (HCC) Atrial [...] neoplasm of rectum documented in this encounter [facility] note* Diagnosis Encounter for support and coordination of transition of care- Primary Rectal cancer (HCC) Malignant neoplasm of rectum Primary hypertension Unspecified essential hypertension Coronary artery disease involving huslia coronary artery of huslia heart without angina pectoris Pacemaker Cardiac pacemaker in situ Atrial fibrillation, unspecified type (HCC) Other hyperlipidemia On mechanically assisted ventilation (HCC) Postoperative pain Other acute postoperative pain Rectal cancer (HCC) Malignant neoplasm of rectum Coronary artery disease Coronary atherosclerosis of unspecified type of vessel, huslia or graft Atrial fibrillation, chronic (HCC) Atrial [...] neoplasm of rectum documented in this encounter [facility] note* Diagnosis Encounter for support and coordination of transition of care- Primary Rectal cancer (HCC) Malignant neoplasm of rectum Primary hypertension Unspecified essential hypertension Coronary artery disease involving huslia coronary artery of huslia heart without angina pectoris Pacemaker Cardiac pacemaker in situ Atrial fibrillation, unspecified type (HCC) Other hyperlipidemia On mechanically assisted ventilation (HCC) Postoperative pain Other acute postoperative pain Rectal cancer (HCC) Malignant neoplasm of rectum Coronary artery disease Coronary atherosclerosis of unspecified type of vessel, huslia or graft Atrial fibrillation, chronic (HCC) Atrial [...] sites of bladder documented in this encounter [facility] note* Diagnosis Encounter for support and coordination of transition of care- Primary Rectal cancer (HCC) Malignant neoplasm of rectum Primary hypertension Unspecified essential hypertension Coronary artery disease involving huslia coronary artery of huslia heart without angina pectoris Pacemaker Cardiac pacemaker in situ Atrial fibrillation, unspecified type (HCC) Other hyperlipidemia On mechanically assisted ventilation (HCC) Postoperative pain Other acute postoperative pain Rectal cancer (HCC) Malignant neoplasm of rectum Coronary artery disease Coronary atherosclerosis of unspecified type of vessel, huslia or graft Atrial fibrillation, chronic (HCC) Atrial fibrillation Chronic anticoagulation Long-term (current) use of anticoagulants Hypertension Unspecified essential hypertension Hyperlipidemia Other and unspecified hyperlipidemia Pacemaker Cardiac pacemaker in situ On mechanically assisted ventilation ([facility]) Postoperative pain Other acute postoperative pain Stress [...] neoplasm of rectum documented in this encounter [facility] note* Diagnosis Encounter for support and coordination of transition of care- Primary Rectal cancer (HCC) Malignant neoplasm of rectum Primary hypertension Unspecified essential hypertension Coronary artery disease involving huslia coronary artery of huslia heart without angina pectoris Pacemaker Cardiac pacemaker in situ Atrial fibrillation, unspecified type (HCC) Other hyperlipidemia On mechanically assisted ventilation (HCC) Postoperative pain Other acute postoperative pain Rectal cancer (HCC) Malignant neoplasm of rectum Coronary artery disease Coronary atherosclerosis of unspecified type of vessel, huslia or graft Atrial fibrillation, chronic (HCC) Atrial [...] neoplasm of rectum [facility] Diagnosis Encounter for support and coordination of transition of care- Primary Rectal cancer (HCC) Malignant neoplasm of rectum Primary hypertension Unspecified essential hypertension Coronary artery disease involving huslia coronary artery of huslia heart without angina pectoris Pacemaker Cardiac pacemaker in situ Atrial fibrillation, unspecified type (HCC) Other hyperlipidemia On mechanically assisted ventilation (HCC) Postoperative pain Other acute postoperative pain Rectal cancer (HCC) Malignant neoplasm of rectum Coronary artery disease Coronary atherosclerosis of unspecified type of vessel, huslia or graft Atrial fibrillation, chronic (HCC) Atrial [...] neoplasm of rectum documented in this encounter [facility] note* Diagnosis Encounter for support and coordination of transition of care- Primary Rectal cancer (HCC) Malignant neoplasm of rectum Primary hypertension Unspecified essential hypertension Coronary artery disease involving huslia coronary artery of huslia heart without angina pectoris Pacemaker Cardiac pacemaker in situ Atrial fibrillation, unspecified type (HCC) Other hyperlipidemia On mechanically assisted ventilation (HCC) Postoperative pain Other acute postoperative pain Rectal cancer (HCC) Malignant neoplasm of rectum Coronary artery disease Coronary atherosclerosis of unspecified type of vessel, huslia or graft Atrial fibrillation, chronic (HCC) Atrial [...] neoplasm of rectum documented in this encounter [facility] note* Diagnosis Encounter for support and coordination of transition of care- Primary Rectal cancer (HCC) Malignant neoplasm of rectum Primary hypertension Unspecified essential hypertension Coronary artery disease involving huslia coronary artery of huslia heart without angina pectoris Pacemaker Cardiac pacemaker in situ Atrial fibrillation, unspecified type (HCC) Other hyperlipidemia On mechanically assisted ventilation (HCC) Postoperative pain Other acute postoperative pain Rectal cancer (HCC) Malignant neoplasm of rectum Coronary artery disease Coronary atherosclerosis of unspecified type of vessel, huslia or graft Atrial fibrillation, chronic (HCC) Atrial [...] neoplasm of rectum documented in this encounter [facility] note* Diagnosis Encounter for support and coordination of transition of care- Primary Rectal cancer (HCC) Malignant neoplasm of rectum Primary hypertension Unspecified essential hypertension Coronary artery disease involving huslia coronary artery of huslia heart without angina pectoris Pacemaker Cardiac pacemaker in situ Atrial fibrillation, unspecified type (HCC) Other hyperlipidemia On mechanically assisted ventilation (HCC) Postoperative pain Other acute postoperative pain Rectal cancer (HCC) Malignant neoplasm of rectum Coronary artery disease Coronary atherosclerosis of unspecified type of vessel, huslia or graft Atrial fibrillation, chronic (HCC) Atrial [...] neoplasm of rectum documented in this encounter [facility] note* Diagnosis Encounter for support and coordination of transition of care- Primary Rectal cancer (HCC) Malignant neoplasm of rectum Primary hypertension Unspecified essential hypertension Coronary artery disease involving huslia coronary artery of huslia heart without angina pectoris Pacemaker Cardiac pacemaker in situ Atrial fibrillation, unspecified type (HCC) Other hyperlipidemia On mechanically assisted ventilation (HCC) Postoperative pain Other acute postoperative pain Rectal cancer (HCC) Malignant neoplasm of rectum Coronary artery disease Coronary atherosclerosis of unspecified type of vessel, huslia or graft Atrial fibrillation, chronic (HCC) Atrial [...] NO SHOW- Primary [facility] Outpatient Procedure (Routine) - Authorized Specialty Diagnoses / Procedures Referred By Tete fregoso Referred To Contact [facility] [place] Diagnoses Surgery follow-up Procedures ECG COMPLETE ECG ROUTINE ECG W/LEAST 12 LDS W/I&R Masood Wilder MD [address] [place] [address] [facility] [place] [address] Referral ID Status Reason Start Date Expiration Date Visits Requested Visits Authorized [id number] Authorized Auto-Generat ed Referral 07/01/2024 07/01/2025 1 1 [facility] Summary Purpose Family History No Family History Records FoundNo Family History Records FoundNo Family History Records FoundNo Family History Records FoundNo Family History Records FoundNo Family History Records FoundNo Family History Records FoundNo Family History Records Found Advance Directives No Advanced Directives Records FoundDocuments on File Type Date Recorded 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 Advance Directive(s) 06/18/2024 7:47 AM Documents on File Type Date Recorded 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 Advance Directive(s) 06/18/2024 7:47 AM Reason for Referral Specialty Diagnoses / Procedures Referred By Contac t Referred To Contact Oncology Diagnoses Rectal cancer (HCC) Procedures CONSULT TO ONCOLOGY OFFICE/OUTPATIENT [facility] 60 MINUTES Jeremie Coyne MD [address] [id number] Referral ID Status Reason Start Date Expiration Date Visits Requested Visits Authorized [id number] Authorized PCP Requested Referral 07/23/2024 07/23/2025 1 1 Specialty Diagnoses / Procedures Referred By Contac t Referred To Contact Radiation Oncology Diagnoses Rectal cancer (HCC) Procedures RAD/ONC CONSULT OFFICE/OUTPATIENT [facility] 60 MINUTES Jeremie Coyne MD [address] [id number] Referral ID Status Reason Start Date Expiration Date Visits Requested Visits Authorized [id number] Authorized PCP Requested Referral 07/23/2024 07/23/2025 1 1 Specialty Diagnoses / Procedures Referred By Contac t Referred To Contact CT IMAGING Diagnoses Rectal cancer (HCC) Procedures CT CHEST W IVCON DIAGNOSTIC COMPUTED TOMOGRAPHY THORAX W/CONTRAST Fred Gonzalez MD [address] [place] [address] [place] [address] Ct Imaging [facility] Referral ID Status Reason Start Date Expiration Date Visits Requested Visits Authorized [id number] Authorized Auto-Generat ed Referral 08/29/2025 1 1 Specialty Diagnoses / Procedures Referred By Contac t Referred To Contact CT IMAGING Diagnoses Rectal cancer (HCC) Procedures CT ABD/PEL W IVCON CT ABD & PELVIS W/CONTRAST Fred Gonzalez MD [address] [place] [address] [place] [address] Ct Imaging [facility] Referral ID Status Reason Start Date Expiration Date Visits Requested Visits Authorized [id number] Authorized Auto-Generat ed Referral 08/29/2025 1 1 Specialty Diagnoses / Procedures Referred By Contac t Referred To Contact Diagnoses Rectal cancer (HCC) Bladder mass Procedures REFER TO [facility] - PREOPERATIVE OPTIMIZATION OFFICE/OUTPATIENT NEW HIGH MDM 60 MINUTES Joaquina Dacosta APRN.WAGON DRIVER SALESPERSON [address] [place] [address] Referral ID Status Reason Start Date Expiration Date Visits Requested Visits Authorized [id number] Authorized PCP Requested Referral 08/14/2024 08/13/2025 1 1 Specialty Diagnoses / Procedures Referred By Contac t Referred To Contact Diagnoses Rectal cancer (HCC) Procedures CT SIM PLANNING RADIATION ONCOLOGY THER RAD SIMULAJ-AIDED FIELD SETTING COMPLEX Noah Harrison MD [address] [place] [address] [place] [address] Referral ID Status Reason Start Date Expiration Date Visits Requested Visits Authorized [id number] New Request PCP Requested Referral 12/03/2024 1 1 Additional Source Comments (unrecognized sect ion and content) No Status Records FoundNo Status Records FoundNo Status Records FoundNo Status Records FoundNo Status Records FoundNo Status Records FoundNo Status Records FoundNo Status Records Found INFORMATION SOURCE (unrecogn ized section and content) DATE CREATED AUTHOR 01/29/2022 [facility] DATE CREATED AUTHOR AUTHOR'S ORGANIZ ATION 04/23/2022 [facility] DATE CREATED AUTHOR AUTHOR'S ORGANIZ ATION 01/18/2023 [facility] DATE CREATED AUTHOR AUTHOR'S ORGANIZ ATION 04/05/2024 [facility] DATE CREATED AUTHOR AUTHOR'S ORGANIZ ATION 05/08/2024 [facility] DATE CREATED AUTHOR AUTHOR'S ORGANIZ ATION 08/20/2024 [facility] DATE CREATED AUTHOR AUTHOR'S ORGANIZ ATION 12/31/2024 [facility] DATE CREATED AUTHOR AUTHOR'S ORGANIZ ATION 07/02/2025 [facility] Source Comments (unrecognize d section and content) In the event this informatio n is protected by the Federal Confidentiality of Alcohol and Drug Abuse Patient Records regulations: The Federal rules restrict any use of the information to criminally investigate or prosecute any alcohol or drug abuse patient.[facility] HospitalIn the event this information is protected by the Federal Confidentiality of Alcohol and Drug Abuse Patient Records regulations: The Federal rules restrict any use of the information to criminally investigate or prosecute any alcohol or drug abuse patient.[facility] HospitalIn the event this information is protected by the Federal Confidentiality of Alcohol and Drug Abuse Patient Records regulations: The Federal rules restrict any use of the information to criminally investigate or prosecute any alcohol or drug abuse patient.[facility] HospitalIn the event this information is protected by the Federal Confidentiality of Alcohol and Drug Abuse Patient Records regulations: The Federal rules restrict any use of the information to criminally investigate or prosecute any alcohol or drug abuse patient.[facility] HospitalIn the event this information is protected by the Federal Confidentiality of Alcohol and Drug Abuse Patient Records regulations: The Federal rules restrict any use of the information to criminally investigate or prosecute any alcohol or drug abuse patient.[facility] HospitalIn the event this information is protected by the Federal Confidentiality of Alcohol and Drug Abuse Patient Records regulations: The Federal rules restrict any use of the information to criminally investigate or prosecute any alcohol or drug abuse patient.[facility] HospitalIn the event this information is protected by the Federal Confidentiality of Alcohol and Drug Abuse Patient Records regulations: The Federal rules restrict any use of the information to criminally investigate or prosecute any alcohol or drug abuse patient.[facility] HospitalIn the event this information is protected by the Federal Confidentiality of Alcohol and Drug Abuse Patient Records regulations: The Federal rules restrict any use of the information to criminally investigate or prosecute any alcohol or drug abuse patient.[facility] HospitalIn the event this information is protected by the Federal Confidentiality of Alcohol and Drug Abuse Patient Records regulations: The Federal rules restrict any use of the information to criminally investigate or prosecute any alcohol or drug abuse patient.[facility] HospitalIn the event this information is protected by the Federal Confidentiality of Alcohol and Drug Abuse Patient Records regulations: The Federal rules restrict any use of the information to criminally investigate or prosecute any alcohol or drug abuse patient.[facility] HospitalIn the event this information is protected by the Federal Confidentiality of Alcohol and Drug Abuse Patient Records regulations: The Federal rules restrict any use of the information to criminally investigate or prosecute any alcohol or drug abuse patient.[facility] HospitalIn the event this information is protected by the Federal Confidentiality of Alcohol and Drug Abuse Patient Records regulations: The Federal rules restrict any use of the information to criminally investigate or prosecute any alcohol or drug abuse patient.[facility] HospitalIn the event this information is protected by the Federal Confidentiality of Alcohol and Drug Abuse Patient Records regulations: The Federal rules restrict any use of the information to criminally investigate or prosecute any alcohol or drug abuse patient.[facility] HospitalIn the event this information is protected by the Federal Confidentiality of Alcohol and Drug Abuse Patient Records regulations: The Federal rules restrict any use of the information to criminally investigate or prosecute any alcohol or drug abuse patient.[facility] HospitalIn the event this information is protected by the Federal Confidentiality of Alcohol and Drug Abuse Patient Records regulations: The Federal rules restrict any use of the information to criminally investigate or prosecute any alcohol or drug abuse patient.[facility] HospitalIn the event this information is protected by the Federal Confidentiality of Alcohol and Drug Abuse Patient Records regulations: The Federal rules restrict any use of the information to criminally investigate or prosecute any alcohol or drug abuse patient.[facility] HospitalIn the event this information is protected by the Federal Confidentiality of Alcohol and Drug Abuse Patient Records regulations: The Federal rules restrict any use of the information to criminally investigate or prosecute any alcohol or drug abuse patient.[facility] HospitalIn the event this information is protected by the Federal Confidentiality of Alcohol and Drug Abuse Patient Records regulations: The Federal rules restrict any use of the information to criminally investigate or prosecute any alcohol or drug abuse patient.[facility] HospitalIn the event this information is protected by the Federal Confidentiality of Alcohol and Drug Abuse Patient Records regulations: The Federal rules restrict any use of the information to criminally investigate or prosecute any alcohol or drug abuse patient.[facility] HospitalIn the event this information is protected by the Federal Confidentiality of Alcohol and Drug Abuse Patient Records regulations: The Federal rules restrict any use of the information to criminally investigate or prosecute any alcohol or drug abuse patient.[facility] HospitalIn the event this information is protected by the Federal Confidentiality of Alcohol and Drug Abuse Patient Records regulations: The Federal rules restrict any use of the information to criminally investigate or prosecute any alcohol or drug abuse patient.[facility] HospitalIn the event this information is protected by the Federal Confidentiality of Alcohol and Drug Abuse Patient Records regulations: The Federal rules restrict any use of the information to criminally investigate or prosecute any alcohol or drug abuse patient.[facility] HospitalIn the event this information is protected by the Federal Confidentiality of Alcohol and Drug Abuse Patient Records regulations: The Federal rules restrict any use of the information to criminally investigate or prosecute any alcohol or drug abuse patient.[facility] HospitalIn the event this information is protected by the Federal Confidentiality of Alcohol and Drug Abuse Patient Records regulations: The Federal rules restrict any use of the information to criminally investigate or prosecute any alcohol or drug abuse patient.[facility] HospitalIn the event this information is protected by the Federal Confidentiality of Alcohol and Drug Abuse Patient Records regulations: The Federal rules restrict any use of the information to criminally investigate or prosecute any alcohol or drug abuse patient.[facility] HospitalIn the event this information is protected by the Federal Confidentiality of Alcohol and Drug Abuse Patient Records regulations: The Federal rules restrict any use of the information to criminally investigate or prosecute any alcohol or drug abuse patient.[facility] HospitalIn the event this information is protected by the Federal Confidentiality of Alcohol and Drug Abuse Patient Records regulations: The Federal rules restrict any use of the information to criminally investigate or prosecute any alcohol or drug abuse patient.[facility] HospitalIn the event this information is protected by the Federal Confidentiality of Alcohol and Drug Abuse Patient Records regulations: The Federal rules restrict any use of the information to criminally investigate or prosecute any alcohol or drug abuse patient.[facility] HospitalIn the event this information is protected by the Federal Confidentiality of Alcohol and Drug Abuse Patient Records regulations: The Federal rules restrict any use of the information to criminally investigate or prosecute any alcohol or drug abuse patient.[facility] HospitalIn the event this information is protected by the Federal Confidentiality of Alcohol and Drug Abuse Patient Records regulations: The Federal rules restrict any use of the information to criminally investigate or prosecute any alcohol or drug abuse patient.[facility] HospitalIn the event this information is protected by the Federal Confidentiality of Alcohol and Drug Abuse Patient Records regulations: The Federal rules restrict any use of the information to criminally investigate or prosecute any alcohol or drug abuse patient.[facility] HospitalIn the event this information is protected by the Federal Confidentiality of Alcohol and Drug Abuse Patient Records regulations: The Federal rules restrict any use of the information to criminally investigate or prosecute any alcohol or drug abuse patient.[facility] HospitalIn the event this information is protected by the Federal Confidentiality of Alcohol and Drug Abuse Patient Records regulations: The Federal rules restrict any use of the information to criminally investigate or prosecute any alcohol or drug abuse patient.[facility] HospitalIn the event this information is protected by the Federal Confidentiality of Alcohol and Drug Abuse Patient Records regulations: The Federal rules restrict any use of the information to criminally investigate or prosecute any alcohol or drug abuse patient.[facility] HospitalIn the event this information is protected by the Federal Confidentiality of Alcohol and Drug Abuse Patient Records regulations: The Federal rules restrict any use of the information to criminally investigate or prosecute any alcohol or drug abuse patient.[facility] HospitalIn the event this information is protected by the Federal Confidentiality of Alcohol and Drug Abuse Patient Records regulations: The Federal rules restrict any use of the information to criminally investigate or prosecute any alcohol or drug abuse patient.[facility] HospitalIn the event this information is protected by the Federal Confidentiality of Alcohol and Drug Abuse Patient Records regulations: The Federal rules restrict any use of the information to criminally investigate or prosecute any alcohol or drug abuse patient.[facility] HospitalIn the event this information is protected by the Federal Confidentiality of Alcohol and Drug Abuse Patient Records regulations: The Federal rules restrict any use of the information to criminally investigate or prosecute any alcohol or drug abuse patient.[facility] HospitalIn the event this information is protected by the Federal Confidentiality of Alcohol and Drug Abuse Patient Records regulations: The Federal rules restrict any use of the information to criminally investigate or prosecute any alcohol or drug abuse patient.[facility] HospitalIn the event this information is protected by the Federal Confidentiality of Alcohol and Drug Abuse Patient Records regulations: The Federal rules restrict any use of the information to criminally investigate or prosecute any alcohol or drug abuse patient.[facility] HospitalIn the event this information is protected by the Federal Confidentiality of Alcohol and Drug Abuse Patient Records regulations: The Federal rules restrict any use of the information to criminally investigate or prosecute any alcohol or drug abuse patient.[facility] HospitalIn the event this information is protected by the Federal Confidentiality of Alcohol and Drug Abuse Patient Records regulations: The Federal rules restrict any use of the information to criminally investigate or prosecute any alcohol or drug abuse patient.[facility] HospitalIn the event this information is protected by the Federal Confidentiality of Alcohol and Drug Abuse Patient Records regulations: The Federal rules restrict any use of the information to criminally investigate or prosecute any alcohol or drug abuse patient.[facility] HospitalIn the event this information is protected by the Federal Confidentiality of Alcohol and Drug Abuse Patient Records regulations: The Federal rules restrict any use of the information to criminally investigate or prosecute any alcohol or drug abuse patient.[facility] HospitalIn the event this information is protected by the Federal Confidentiality of Alcohol and Drug Abuse Patient Records regulations: The Federal rules restrict any use of the information to criminally investigate or prosecute any alcohol or drug abuse patient.[facility] HospitalIn the event this information is protected by the Federal Confidentiality of Alcohol and Drug Abuse Patient Records regulations: The Federal rules restrict any use of the information to criminally investigate or prosecute any alcohol or drug abuse patient.[facility] HospitalIn the event this information is protected by the Federal Confidentiality of Alcohol and Drug Abuse Patient Records regulations: The Federal rules restrict any use of the information to criminally investigate or prosecute any alcohol or drug abuse patient.[facility] Care Teams (unrecognized sec tion and content) Circular Saw Edge Fuser Relationship Specialty Start Date End Date Elliot Decker MD PCP - General Family Medicine 12/19/11 Kina Ernst MD [address] [place] [phone] Colon and Rectal Surgery 06/19/24 Circular Saw Edge Fuser Relationship Specialty Start Date End Date Elliot Decker MD PCP - General Family Medicine 12/19/11 Kina Ernst MD [address] [place] [address] Colon and Rectal Surgery 06/19/24 Circular Saw Edge Fuser Relationship Specialty Start Date End Date Elliot Decker MD PCP - General Family Medicine 12/19/11 Kina Ernst MD [address] [place] [phone] 235 Colon and Rectal Surgery 06/19/24 Circular Saw Edge Fuser Relationship Specialty Start Date End Date Elliot Decker MD PCP - General Family Medicine 12/19/11 Kina Ernst MD [address] [address] Colon and Rectal Surgery 06/19/24 Circular Saw Edge Fuser Relationship Specialty Start Date End Date Elliot Decker MD PCP - General Family Medicine 12/19/11 Kina Ernst MD [address] [address] Colon and Rectal Surgery 06/19/24 Circular Saw Edge Fuser Relationship Specialty Start Date End Date Elliot Decker MD PCP - General Family Medicine 12/19/11 Kina Ernst MD [address] [address] Colon and Rectal Surgery 06/19/24 Circular Saw Edge Fuser Relationship Specialty Start Date End Date Elliot Decker MD PCP - General Family Medicine 12/19/11 Kina Ernst MD [address] [address] Colon and Rectal Surgery 06/19/24 Circular Saw Edge Fuser Relationship Specialty Start Date End Date Elliot Decker MD PCP - General Family Medicine 12/19/11 Kina Ernst MD [address] [address] Colon and Rectal Surgery 06/19/24 Circular Saw Edge Fuser Relationship Specialty Start Date End Date Elliot Decker MD PCP - General Family Medicine 12/19/11 Kina Ernst MD [address] [employer] [address] [address] Colon and Rectal Surgery 06/19/24 Circular Saw Edge Fuser Relationship Specialty Start Date End Date Elliot Decker MD PCP - General Family Medicine 12/19/11 Kina Ernst MD [address] [employer] [address] [address] Colon and Rectal Surgery 06/19/24 Circular Saw Edge Fuser Relationship Specialty Start Date End Date Elliot Decker MD PCP - General Family Medicine 12/19/11 Kina Ernst MD [address] [employer] [address] [address] Colon and Rectal Surgery 06/19/24 Circular Saw Edge Fuser Relationship Specialty Start Date End Date Elliot Decker MD PCP - General Family Medicine 12/19/11 Kina Ernst MD [address] [employer] [address] [address] Colon and Rectal Surgery 06/19/24 Circular Saw Edge Fuser Relationship Specialty Start Date End Date Elliot Decker MD PCP - General Family Medicine 12/19/11 Kina Ernst MD [address] [place] [address] Colon and Rectal Surgery 06/19/24 Circular Saw Edge Fuser Relationship Specialty Start Date End Date Elliot Decker MD PCP - General Family Medicine 12/19/11 Kina Ernst MD [address] [facility] [address] [place] [address] Colon and Rectal Surgery 06/19/24 Circular Saw Edge Fuser Relationship Specialty Start Date End Date Elliot Decker MD PCP - General Family Medicine 12/19/11 Kina Ernst MD [address] [place] [address] Colon and Rectal Surgery 06/19/24 Circular Saw Edge Fuser Relationship Specialty Start Date End Date Elliot Decker MD PCP - General Family Medicine 12/19/11 Kina Ernst MD [address] [place] [address] Colon and Rectal Surgery 06/19/24 Circular Saw Edge Fuser Relationship Specialty Start Date End Date Elliot Decker MD PCP - General Family Medicine 12/19/11 Kina Ernst MD [address] [facility] [address] [place] [address] Colon and Rectal Surgery 06/19/24 Circular Saw Edge Fuser Relationship Specialty Start Date End Date Elliot Decker MD PCP - General Family Medicine 12/19/11 Kina Ernst MD [address] [phone] Colon and Rectal Surgery 06/19/24 Circular Saw Edge Fuser Relationship Specialty Start Date End Date Elliot Decker MD PCP - General Family Medicine 12/19/11 Kina Ernst MD [address] [address] Colon and Rectal Surgery 06/19/24 Abril Gardner RN [address] [facility] [place] [address] Specialty Hydro Sprayer Operator Hematology/Oncology 08/28/24 Fred Gonzalez MD [address] [place] [address] [place] [address] Physician Hematology/Oncology 08/28/24 Jennifer Gonzalez, PA-C [address] [facility] [place] [address] Physician Circuit Tester Hematology/Oncology 08/28/24 Circular Saw Edge Fuser Relationship Specialty Start Date End Date Elliot Dceker MD PCP - General Family Medicine 12/19/11 Kina Ernst MD [address] [phone] Colon and Rectal Surgery 06/19/24 Abril Gardner RN [address] [place] [address] Specialty Hydro Sprayer Operator Hematology/Oncology 08/28/24 Fred Gonzalez MD [address] [facility] [place] [address] Physician Hematology/Oncology 08/28/24 Jennifer Gonzalez PA-C [address] [place] [address] Physician Circuit Tester Hematology/Oncology 08/28/24 Circular Saw Edge Fuser Relationship Specialty Start Date End Date Elliot Decker MD PCP - General Family Medicine 12/19/11 Kina Ernst MD [address] [place] [phone] Colon and Rectal Surgery 06/19/24 Abril Gardner RN [address] [facility] [place] [place] [address] Specialty Hydro Sprayer Operator Hematology/Oncology 08/28/24 Fred Gonzalez MD [address] [facility] [place] [address] Physician Hematology/Oncology 08/28/24 Jenniefr Gonzalez PA-C [address] [facility] [place] [address] Physician Circuit Tester Hematology/Oncology 08/28/24 Circular Saw Edge Fuser Relationship Specialty Start Date End Date Elliot Decker MD PCP - General Family Medicine 12/19/11 Kina Ernst MD [address] [phone] Colon and Rectal Surgery 06/19/24 Abril Gardner, RN [address] [place] [address] Specialty Hydro Sprayer Operator Hematology/Oncology 08/28/24 Fred Gonzalez MD [address] [facility] [place] [address] Physician Hematology/Oncology 08/28/24 Jennifer Gonzalez PA-C [address] [facility] [place] [address] Physician Circuit Tester Hematology/Oncology 08/28/24 Circular Saw Edge Fuser Relationship Specialty Start Date End Date Elliot Decker MD PCP - General Family Medicine 12/19/11 Kina Ernst MD [address] [phone] Colon and Rectal Surgery 06/19/24 Abril Gardner RN [address] [place] [address] Specialty Hydro Sprayer Operator Hematology/Oncology 08/28/24 Fred Gonzalez MD [address] [facility] [place] [address] Physician Hematology/Oncology 08/28/24 Jennifer Gonzalez PA-C [address] [facility] [place] [address] Physician Circuit Tester Hematology/Oncology 08/28/24 Circular Saw Edge Fuser Relationship Specialty Start Date End Date Elliot Decker MD PCP - General Family Medicine 12/19/11 Kina Ernst MD [address] [phone] Colon and Rectal Surgery 06/19/24 Abril Gardner RN [address] [facility] [place] [address] Specialty Hydro Sprayer Operator Hematology/Oncology 08/28/24 Fred Gonzalez MD [address] [facility] [place] [place] [address] Physician Hematology/Oncology 08/28/24 Jennifer Gonzalez PA-C [address] [facility] [place] [place] [address] Physician Circuit Tester Hematology/Oncology 08/28/24 Circular Saw Edge Fuser Relationship Specialty Start Date End Date Elliot Decker MD PCP - General Family Medicine 12/19/11 Kina Ernst MD [address] [phone] Colon and Rectal Surgery 06/19/24 Abril Gardner RN [address] [facility] [place] [address] Specialty Hydro Sprayer Operator Hematology/Oncology 08/28/24 Fred Gonzalez MD [address] [facility] [place] [address] Physician Hematology/Oncology 08/28/24 Jennifer Gonzalez PA-C [address] [facility] [place] [place] [address] Physician Circuit Tester Hematology/Oncology 08/28/24 Circular Saw Edge Fuser Relationship Specialty Start Date End Date Elliot Decker MD PCP - General Family Medicine 12/19/11 Kina Ernst MD [address] [phone] Colon and Rectal Surgery 06/19/24 Abril Gardner RN [address] [facility] [place] [address] Specialty Hydro Sprayer Operator Hematology/Oncology 08/28/24 Fred Gonzalez MD [address] [facility] [place] [address] Physician Hematology/Oncology 08/28/24 Jennifer Gonzalez, PAOsmarC [address] [facility] [place] [place] [address] Physician Circuit Tester Hematology/Oncology 08/28/24 Circular Saw Edge Fuser Relationship Specialty Start Date End Date Elliot Decker MD PCP - General Family Medicine 12/19/11 Kina Ernst MD [address] [phone] Colon and Rectal Surgery 06/19/24 Abril Gardner, RN [address] [facility] [place] [address] Specialty Hydro Sprayer Operator Hematology/Oncology 08/28/24 Fred Gonzalez MD [address] [facility] [place] [address] Physician Hematology/Oncology 08/28/24 Jennifer Gonzalez PA-C [address] [facility] [place] [address] Physician Circuit Tester Hematology/Oncology 08/28/24 Circular Saw Edge Fuser Relationship Specialty Start Date End Date Elliot Decker MD PCP - General Family Medicine 12/19/11 Kina Ernst MD [address] [phone] Colon and Rectal Surgery 06/19/24 Abril Gardner RN [address] [facility] [place] [address] Specialty Hydro Sprayer Operator Hematology/Oncology 08/28/24 Fred Gonzalez MD [address] [facility] [place] [address] Physician Hematology/Oncology 08/28/24 Jennifer Gonzalez PA-C [address] [facility] [place] [address] Physician Circuit Tester Hematology/Oncology 08/28/24 Circular Saw Edge Fuser Relationship Specialty Start Date End Date Elliot Decker MD PCP - General Family Medicine 12/19/11 Kina Ernst MD [address] [phone] Colon and Rectal Surgery 06/19/24 Abril Gardner RN [address] [facility] [place] [address] Specialty Hydro Sprayer Operator Hematology/Oncology 08/28/24 Fred Gonzalez MD [address] [facility] [place] [place] [address] Physician Hematology/Oncology 08/28/24 Jennifer Gonzalez PA-C [address] [facility] [place] [address] Physician Circuit Tester Hematology/Oncology 08/28/24 Circular Saw Edge Fuser Relationship Specialty Start Date End Date Elliot Decker MD PCP - General Family Medicine 12/19/11 Kina Ernst MD [address] [phone] Colon and Rectal Surgery 06/19/24 Abril Gardner, RN [address] [facility] [place] [place] [address] Specialty Hydro Sprayer Operator Hematology/Oncology 08/28/24 Fred Gonzalez MD [address] [facility] [place] [address] Physician Hematology/Oncology 08/28/24 Jennifer Gonzalez PA-C [address] [facility] [place] [place] [address] Physician Circuit Tester Hematology/Oncology 08/28/24 Circular Saw Edge Fuser Relationship Specialty Start Date End Date Elliot Decker MD PCP - General Family Medicine 12/19/11 Kina Ernst MD [address] [phone] Colon and Rectal Surgery 06/19/24 Abril Gardner RN [address] [facility] [place] [place] [address] Specialty Hydro Sprayer Operator Hematology/Oncology 08/28/24 Fred Gonzalez MD [address] [facility] [place] [address] Physician Hematology/Oncology 08/28/24 Jennifer Gonzalez PA-C [address] [place] [address] [place] [address] Physician Circuit Tester Hematology/Oncology 08/28/24 Circular Saw Edge Fuser Relationship Specialty Start Date End Date Elliot Decker MD PCP - General Family Medicine 12/19/11 Kina Ernst MD [address] [place] [phone] Colon and Rectal Surgery 06/19/24 Abril Gardner RN [address] [facility] [place] [place] [address] Specialty Hydro Sprayer Operator Hematology/Oncology 08/28/24 Fred Gonzalez MD [address] [place] [address] [place] [address] Physician Hematology/Oncology 08/28/24 Jennifer Gonzalez PA-C [address] [place] [address] [place] [address] Physician Circuit Tester Hematology/Oncology 08/28/24 Circular Saw Edge Fuser Relationship Specialty Start Date End Date Elliot Decker MD PCP - General Family Medicine 12/19/11 Kina Ernst MD [address] [phone] Colon and Rectal Surgery 06/19/24 Abril Gardner, RN [address] [place] [address] Specialty Hydro Sprayer Operator Hematology/Oncology 08/28/24 Fred Gonzalez MD [address] [place] [address] Physician Hematology/Oncology 08/28/24 Jennifer Gonzalez PA-C [address] [facility] [place] [address] Physician Circuit Tester Hematology/Oncology 08/28/24 Circular Saw Edge Fuser Relationship Specialty Start Date End Date Elliot Decker MD PCP - General Family Medicine 12/19/11 Kina Ernst MD [address] [phone] Colon and Rectal Surgery 06/19/24 Abril Gardner RN [address] [place] [address] Specialty Hydro Sprayer Operator Hematology/Oncology 08/28/24 Fred Gonzalez MD [address] [place] [address] Physician Hematology/Oncology 08/28/24 Jennifer Gonzalez PA-C [address] [place] [address] Physician Circuit Tester Hematology/Oncology 08/28/24 Circular Saw Edge Fuser Relationship Specialty Start Date End Date Elliot Decker MD PCP - General Family Medicine 12/19/11 Kina Ernst MD [address] [phone] Colon and Rectal Surgery 06/19/24 Abril Gardner, RN [address] [facility] [place] [address] Specialty Hydro Sprayer Operator Hematology/Oncology 08/28/24 Fred Gonzalez MD [address] [facility] [place] [address] Physician Hematology/Oncology 08/28/24 Jennifer Gonzalez PA-C [address] [facility] [address] [place] Physician Circuit Tester Hematology/Oncology 08/28/24 Circular Saw Edge Fuser Relationship Specialty Start Date End Date Elliot Decker MD PCP - General Family Medicine 12/19/11 Kina Ernst MD [address] [phone] Colon and Rectal Surgery 06/19/24 Abril Gardner RN [address] [facility] [place] [address] Specialty Hydro Sprayer Operator Hematology/Oncology 08/28/24 Fred Gonzalez MD [address] [place] [address] Physician Hematology/Oncology 08/28/24 Jennifer Gonzalez PA-C [address] [place] [address] [place] [address] Physician Circuit Tester Hematology/Oncology 08/28/24 Circular Saw Edge Fuser Relationship Specialty Start Date End Date Elliot Decker MD PCP - General Family Medicine 12/19/11 Kina Ernst MD [address] [place] [phone] Colon and Rectal Surgery 06/19/24 Abril Gardner RN [address] [facility] [place] [address] Specialty Hydro Sprayer Operator Hematology/Oncology 08/28/24 Fred Gonzalez MD [address] [place] [address] [place] [address] Physician Hematology/Oncology 08/28/24 Jennifer Gonzalez PA-C [address] [place] [address] [place] [address] Physician Circuit Tester Hematology/Oncology 08/28/24 Reason for Visit (unrecogniz ed section and content) Reason Comments Radio Main J1 Reason Comments Established Patient Reason Comments Tumor Board GI Colorectal Reason Comments Cystoscopy-1 Specialty Diagnoses / Procedures Referred By Contac t Referred To Contact Diagnoses Rectal cancer (HCC) Procedures CONSULT TO HEMATOLOGY/ONCOLOGY OFFICE/OUTPATIENT [facility] 60 MINUTES Micha Avina MD [address] [place] [address] Referral ID Status Reason Start Date Expiration Date V isits Requested Visits Authorized [id number] Closed PCP Requested Referral 06/15/2024 06/15/2025 1 1 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 Reason Comments Post Wi Program Call - Reason Comments Consult Rectal Cancer Specialty Diagnoses / Procedures Referred By Contac t Referred To Contact Oncology Diagnoses Rectal cancer (HCC) Procedures CONSULT TO ONCOLOGY OFFICE/OUTPATIENT [facility] 60 MINUTES Jeremie Coyne MD [address] [place] [address] Referral ID Status Reason Start Date Expiration Date V isits Requested Visits Authorized [id number] Closed PCP Requested Referral 07/23/2024 07/23/2025 1 1 Reason Comments Consult Specialty Diagnoses / Procedures Referred By Contac t Referred To Contact Radiation Oncology Diagnoses Rectal cancer (HCC) Procedures RAD/ONC CONSULT OFFICE/OUTPATIENT [facility] 60 MINUTES Micha Avina MD [address] [place] [address] Referral ID Status Reason Start Date Expiration Date V isits Requested Visits Authorized [id number] Closed PCP Requested Referral 06/15/2024 06/15/2025 1 1 Reason Comments TURBT w/ Dr Sanchez 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 Consult notes Reason Comments Lab Orders Specialty Diagnoses / Procedures Referred By Contac t Referred To Contact Radiation Oncology Diagnoses Rectal cancer (HCC) Procedures RAD/ONC CONSULT OFFICE/OUTPATIENT [facility] 60 MINUTES Jeremie Coyne MD [address] [place] [address] Referral ID Status Reason Start Date Expiration Date V isits Requested Visits Authorized [id number] Closed PCP Requested Referral 07/23/2024 07/23/2025 1 [address] Specialty Diagnoses / Procedures Referred By Contac t Referred To Contact CT IMAGING Diagnoses Rectal cancer (HCC) Procedures CT ABD/PEL W IVCON CT ABD & PELVIS W/CONTRAST Fred Goznalez MD [address] [place] [address] [place] [address] [facility] [place] [address] Referral ID Status Reason Start Date Expiration Date V isits Requested Visits Authorized [id number] Closed Auto-Generate d Referral 08/29/2024 08/29/2025 1 [...] ATTENUATION SKULL BASE [employer] Noah Harrison MD [address] [place] [address] [place] [address] Molecular & Functional Imaging [address] [place] [address] Referral ID Status Reason Start Date Expiration Date V isits Requested Visits Authorized [id number] Closed Auto-Generate d Referral 08/26/2024 09/25/2025 1 [...] BE BASED ON THE PRIMARY CLINICAL RECORDS. [employer] [facility] provides no warranty or guarantee of the accuracy or completeness of information in this document.
== END 2025-07-30 12:55 | disposition home or self-care (01) ==
LOC: LAB 12:55
PROVIDERS: PCP Family Medicine; Visit Provider Family Medicine
DX: Z02.0 Encounter for examination for admission to educational institution (principal)
CPT/HCPCS: 36415; 86735

== ENCOUNTER 2025-09-28 08:54 | Outpatient (OUT) | payer MEDICARE, OTHER, SELFPAY ==
--- OUTSIDE RECORDS SUMMARY | 2025-09-28 09:14 | XMS_ITS | CCD ---
Author Organization [facility] Care Team Providers Care Jet Worker Name Role Phone MODESTO SINGH Admitting Unavailable [...] CLIFTON Kang Consulting Unavailabl e NADERER, DR JEREMIE Lee [...] Primary Care Provider Kina Ernst MD Unavailable ELLIOTT SANCHEZ Referring Unavailable HOY, ELLIOT M Primary Care Unavailable HOY, ELLIOT M Primary Care Unavailable Jj WINSTON, Abril Kang Unavailable [phone] Lisa MARCUS, Fred Unavailable Jennifer Gonzalez PA-C Unavailable [phone] ELENO JIMENEZ Referring Unavailable HOY, ELLIOT M Primary Care Unavailable ELENO JIMENEZ Referring Unavailable HOY, ELLIOT M Primary Care Unavailable ELENO JIMENEZ Referring Unavailable HONestor, ELLIOT M Primary Care Unavailable ELENO JIMENEZ Referring Unavailable HONestor ELLIOT M Primary Care Unavailable ELLIOTT SANCHEZ [...] Unavailable HOY, ELLIOT M Primary Care Unavailable FRANCISCO, MODESTO Referring Unavailable FRANCISCO, MODESTO Referring Unavailable FRANCISCO, MODESTO Referring Unavailable RAISA, JASON Referring Unavailable RAISA, JASON Referring Unavailable FRANCISCO, MODESTO Referring Unavailable FRANCISCO, MODESTO Referring Unavailable RAISA, JASON Referring Unavailable FRANCISCO, MODESTO Referring Unavailable DARRELL MUELLER Attending Unavailable FRANCISCOMODESTO Referring Unavailable MAJOR HARRISON Attending Unavailable FRANCISCOMODESTO Bacon Referring Unavailable FRANCISCO, MODESTO Referring Unavailable FRANCISCO, MODESTO Referring Unavailable FRANCISCO, MODESTO Referring Unavailable Allergies Allergy ClassificationReported Allergen(s)Allergy TypeDate of OnsetReaction(s) Facility (4 sources)Azithromycin; Translations: [AZITHROMYCIN]Drug Hgzkugb53-18-4165O[facility] Repository (2 sources)AzithromycinDrug Ecwoiyw79-95-2447Ijw [facility] Repository (1 source)CiprofloxacinDrug Unsjsdj07-33-2450Uhd [facility] Repository (20 sources)AzithromycinDrug Pypulia40-65-4329Sxqre: See Comments, GI Upset [facility] Medications Current Medications MedicationDrug Class(es)DatesSig (Normalized)Sig (Original)atorvastatin 40 mg oral tablet (20 sources)HMG-CoA Reductase InhibitorStart: 08-27-2023 End: 70-25-4782hxca 1 tablet by mouth once daily at bedtimeatorvastatin (LIPITOR) 40 mg tablet Take 40 mg by mouth daily at bedtime. 08/27/2023 08/26/2024 Activetake 10 mg by mouth once dailyatorvastatin calcium (ATORVASTATIN ORAL) Take 10 mg by mouth once daily. Activecapecitabine 500 mg oral tablet (20 sources)Nucleoside Metabolic InhibitorStart: 08-27-2024 End: 25-27-6539qzer 1 tablet by mouth twice dailycapecitabine (XELODA) 150 mg tablet Indications: Rectal cancer (HCC) Take 1 tablet (150 mg) by mouth two times a day Saturday through Saturday ONLY on the days of radiation (Take with 500 mg tablet for Total Dosage 1650 mg) 60 tablet 09/07/2024 3:31 PM EDT 08/27/2024 ActiveStart: 08-27-2024 End: 73-33-2891dsyv 3 tablets by mouth twice dailycapecitabine (XELODA) 500 mg tablet Indications: Rectal cancer (HCC) Take 3 tablets (1,500 mg) by mouth two times a day Saturday through Saturday ONLY on the days of radiation (Take with 150 mg tablet for Total Dosage 1650 mg) 180 tablet 09/07/2024 3:31 PM EDT 08/27/2024 Activedocusate sodium 50 mg / sennosides, alf 8.6 mg oral tablet (3 sources)Start: 06-26-2024 End: 52-93-4655gkae 2 tablets by mouth twice dailysenna-docusate (SENNA-S) 8.6- 50 mg per tablet Take 2 tablets by mouth two times a day for 14 days. To prevent post op constipation, stop when no longer needed. 06/26/2024 07/10/2024 Active enteric contrast (will be provided with radiology test) (20 sources)Start: 07-30-2024 End: 16-97-6177kbceyyb contrast (will be provided with radiology test) For CT CHESTABD/PEL W IVCON Routine order Administer, As Directed One Time Only, via Oral, Rectal, both Oral and Rectal, Enteric Tube, Stoma orIndwelling Catheter, Enteric Contrast as designated per enteric contrast guidelines 1 Each 07/30/2024 07/31/2024 ActiveStart: 13-48-0753nybgjpg contrast (will be provided with radiology test) Indications: Rectal cancer (HCC) MRI RECTUMWO/W. Administer, As Directed One Time Only, via Oral, Rectal, both Oral and Rectal, Enteric Tube, S dequan or Indwelling Catheter, Enteric Contrast as designated per enteric contrast guidelines 1 Each 07/24/2024 Active1 ml heparin sodium, porcine 5000 unt/ml injection (20 sources)Unfractionated Heparin, Anti-coagulantStart: 35-36-6128xhxzfe 1 mL by subcutaneous injection every twelve hoursheparin 5,000 unit/mL injection Inject 1 mL subcutaneously every 12 hours. For DVT prophylaxis until ambulatory 06/26/2024 Activeiv contrast (will be provided with radiology test) (20 sources)Start: 07-30-2024 End: 88-39-6726cx contrast (will be provided with radiology test) CT Chest ABD/PEL-Inject, intravenously, once for1 dose.No IV access, insert saline lock prior to the beginning of sedation, infusion, injection of imaging exam. Discontinue saline lock post exam. If Pt. has a central line or IVAD, may access for administration according to line specific nursing protocol. Once exam is complete flush line and de-access according to line specific nursing protocol in the CT contrast administration guidelines link.1 Each 07/30/2024 07/31/2024 ActiveStart: 22-08-7570mk contrast (will be provided with radiology test) Indications: [...] contrast administration guidelines link. 1 Each 07/24/2024 Activemetoprolol tartrate 25 mg oral tablet (20 sources)beta-Adrenergic BlockerStart: 96-85-3325oxml 1 tablet by mouth every twelve hoursmetoprolol tartrate, short acting, (LOPRESSOR) 25 mg tablet Take 1 tablet by mouth every 12 hours. 06/26/2024 Activeondansetron 8 mg oral tablet (19 sources)Serotonin-3 Receptor AntagonistStart: 84-42-9474fmer 1 tablet by mouth every eight hours as neededondansetron (ZOFRAN) 8 mg tablet Take 1 tablet by mouth every 8 hours as needed for nausea/vomiting. 90 tablet 2 09/07/2024 3:31 PM EDT 08/28/2024 Activeprochlorperazine 10 mg oral tablet (19 sources)PhenothiazineStart: 78-10-7800iywa 1 tablet by mouth every six hours as neededprochlorperazine (COMPAZINE) 10 mg tablet Take 1 tablet by mouth every 6 hours as needed. 100 tablet 2 09/07/2024 3:31 PM EDT 08/28/2024 Active sulfamethoxazole 800 mg / trimethoprim 160 mg oral tablet (2 sources)Dihydrofolate Reductase Inhibitor Antibacterial, Sulfonamide AntimicrobialStart: 07-03-2024 End: 21-86-6613xfgt 1 tablet by mouth twice dailysulfamethoxazole-trimethoprim (BACTRIM DS) 800-160 mg per tablet Take 1 tablet by mouth two times aday for 10 days. 20 tablet 07/03/2024 07/13/2024 Active Completed/Discontinued Medications MedicationDrug Class(es)DatesSig (Normalized)Sig (Original)acetaminophen 500 mg oral tablet (20 sources) End: 44-17-6364kxbd 2 tablets by mouth every eight hours as neededacetaminophen (TYLENOL EXTRA STRENGTH) 500 mg tablet Take 1,000 mg by mouth every 8 hours as needed. 09/07/2024 Discontinuedaspirin 81 mg chewable tablet (20 sources)Platelet Aggregation Inhibitor, Nonsteroidal Anti-inflammatory Drug Start: 06-27-2024 End: 12-91-2394htwf 1 tablet by mouth once dailyaspirin 81 mg chewable tablet Take 1 tablet by mouth once daily. 06/27/2024 09/07/2024 Discontinuedbisacodyl 10 mg rectal suppository (20 sources)Stimulant LaxativeStart: 06-26-2024 End: 92-28-3565xnzsidvgh (DULCOLAX) 10 mg supp 1 Suppository by RECTAL route once daily as needed for constipation. 06/26/2024 09/07/2024 Discontinued cholecalciferol 0.025 mg oral tablet (20 sources)Vitamin D End: 14-34-9462ukmx 1 tablet by mouth once dailycholecalciferol (VITAMIN D) 1,000 unit tab tablet Take 1,000 Units by mouth once daily. 09/07/2024 D iscontinueddoxycycline hyclate 100 mg oral tablet (4 sources)Tetracycline-class DrugStart: 07-29-2024 End: 48-42-6438bqohtoyowcl (VIBRA-TABS) 100 mg tablet Take 100 mg by mouth. 07/29/2024 08/08/2024 Expiredfurosemide 20 mg oral tablet (3 sources)Loop DiureticStart: 06-27-2024 End: 07-70-6471wkxn 1 tablet by mouth once dailyfurosemide (LASIX) 20 mg tablet Take 1 tablet by mouth once daily for 7 days. Patient should start on June 27, 2024. 7 tablet 06/27/2024 07/06/2024 Discontinued (Course of therapy completed) gabapentin 600 mg oral tablet (20 sources)Anti-epileptic AgentStart: 06-26-2024 End: 77-65-4210iywp 0.5 tablet by mouth every twelve hoursgabapentin (NEURONTIN) 600 mg tablet Take 0.5 tablets by mouth every 12 hours for 30 days. 06/26/2024 09/07/2024 Discontinuedlidocaine hydrochloride 0.02 mg/mg topical gel (2 sources)Antiarrhythmic, Amide Local AnestheticStart: 07-21-2024 End: 22-18-2361ivolkojzz urojet 2 % 11 mL topical gel (GLYDO)Start: 07-21-2024 End: mL, URETHRAL, ONCE (UP TO 30 DAYS AMB), 1 dose, On Sat07/21/24 at 1600, FOR EXTERNAL USE ONLYloratadine 10 mg oral tablet (20 sources) End: 36-65-7322aysz 1 tablet by mouth once dailyloratadine (CLARITIN) 10 mg tablet Take 10 mg by mouth once daily. 09/07/2024 Engewolwarxp42 hr mirabegron 25 mg extended release oral tablet (10 sources)beta3-Adrenergic AgonistStart: 08-31-2024 End: 54-39-6753ucjb 1 tablet by mouth once dailymirabegron (MYRBETRIQ) 25 mg Tb24 Take 1 tablet by mouth once daily. 30 tablet 3 08/31/2024 09/07/2024 DiscontinuedoxyCODONE hydrochloride 5 mg oral tablet (2 sources)Opioid AgonistStart: 06-26-2024 End: 62-35-3734gzfe 1 tablet by mouth every six hours as needed for pain oxyCODONE IR (ROXICODONE) 5 mg immediate release tablet Indications: Postoperative pain Take 1 tablet by mouth every 6 hours as needed for pain (severe incision pain) for up to 7 days. 15 tablet 06/26/2024 07/03/2024 pantoprazole 20 mg delayed release oral tablet (20 sources)Proton Pump InhibitorStart: 06-27-2024 End: 84-28-3623qgcw 1 tablet by mouth once daily in the morningpantoprazole DR (PROTONIX) 20 mg tablet Take 1 tablet by mouth daily at 6 am for 14 days. 06/27/2024 09/07/2024 Discontinuedphenazopyridine hydrochloride 200 mg oral tablet (8 sources)Start: 08-20-2024 End: 83-04-4244dhtp 1 tablet by mouth every eight hours as neededphenazopyridine (PYRIDIUM) 200 mg tablet Take 1 tablet by mouth three times a day as needed for up to 14 days. For urinary burning and discomfort, will turn urine orange 30 tablet 08/20/2024 09/03/2024 Expiredpolyethylene glycol 3350 58219 mg powder for oral solution (20 sources)Osmotic LaxativeStart: 06-26-2024 End: 98-66-8895hyvxmqtvyiev glycol 3350 17 gram packet Take 1 Packet by mouth once daily as needed for constipation. Dissolve dose in 4 - 8 ounces of liquid and take as directed. 06/26/2024 09/07/2024 Discontinuedpotassium chloride 10 meq extended release oral tablet (20 sources)Start: 07-06-2024 End: 13-07-9088vxis 1 tablet by mouth once dailypotassium chloride (KLOR-CON 10) 10 mEq tablet Take 1 tablet by mouth once daily. Rx called to SNF 10 tablet 07/06/2024 09/07/2024 Discontinuedtorsemide 20 mg oral tablet (20 sources)Loop DiureticStart: 07-06-2024 End: 49-87-2627jomx 1 tablet by mouth once dailytorsemide (DEMADEX) 20 mg tablet Take 1 tablet by mouth once daily. Rx called to SNF 10 tablet 07/06/2024 09/07/2024 Discontinuedtrospium chloride 20 mg oral tablet (5 sources)Cholinergic Muscarinic AntagonistStart: 08-20-2024 End: 66-66-0091lixf 1 tablet by mouth twice dailytrospium (SANCTURA) 20 mg tablet Take 1 tablet by mouth two times a day for 14 days. 28 tablet 08/20/2024 08/31/2024 Discontinued Problems Active Problems Problem ClassificationProblemDateDocumented DateEpisodic/ChronicCalculus of urinary tract (1 source)Personal history of urinary calculi; Translations: [PERSONAL HISTORY OF URINARY CALCULI]Onset: 61-76-8584ZaafftwsMfjowa of bladder (20 sources)Malignant neoplasm, overlapping lesion of bladder; Translations: [Malignant neoplasm of overlappingsites of bladder]Onset: ChronicCancer of prostate (3 sources)Malignant neoplasm of prostate; Translations: [Malignant tumor of prostate]Onset: 752404-48-1477UsqkzawPutxzg of rectum and anus (20 sources)Malignant tumor of rectum; Translations: [Malignant neoplasm of rectum]Onset: 578632-87-0350XmfrrtxIrbewnd dysrhythmias (20 sources)Chronic atrial fibrillation; Translations: [Chronic atrial fibrillation, unspecified]Onset: 876060-78-5013SzupejkTgsbyyd kidney disease (20 sources)Chronic kidney disease stage 3; Translations: [CKD (chronic kidney disease) stage 3, GFR 30-59 ml/min]Onset: 252391-44-6654SvoprpmKbgbapj kidney disease (2 sources)Chronic kidney disease; Translations: [Stage 3 chronic kidney disease, unspecified whether stage 3aor 3b CKD (HCC)]Onset: 37-28-2226Trjriungez disorders (20 sources)Encounter for adjustment and management of automatic implantable cardiac defibrillator; Translations: [Cardiac pacemaker in situ]Onset: 23-54-0822NzooazhBgqzweeauy heart failure; nonhypertensive (20 sources)Right ventricular failure; Translations: [Right heart failure, unspecified]Onset: 06-18-2024 Resolved: 010457-88-2513HooketaWnmdiucd atherosclerosis and other heart disease (20 sources)Coronary arteriosclerosis; Translations: [Atherosclerotic heart disease of [place] coronary artery without angina pectoris]Onset: 06-12-2024 80-16-8642DiycbzxKsmfwnohrg and other anemia (1 source)Iron deficiency anemia due to blood loss; Translations: [Iron deficiency anemia secondary to blood loss (chronic)]92-06-9702UbbwqajYelmohvnkj and other anemia (1 source)Anemia, unspecified; Translations: [Anemia, unspecified type]Onset: 64-97-7077PiyqojexHauxpelyt of lipid metabolism (20 sources)Hyperlipidemia; Translations: [Hyperlipidemia, unspecified]Onset: 699584-02-8505BlfxtbmQujantupl hypertension (20 sources)Essential (primary) hypertension; Translations: [Hypertensive disorder]Onset: 420697-97-7064BnsogpsYexrxzvlbwyyb symptoms and ill- defined conditions (2 sources)Unspecified abnormal findings in urine; Translations: [Abnormal urine]Onset: 826375-82-9407UqymzfljSkxqersrnpq deficiencies (1 source)Mild protein-calorie malnutrition; Translations: [MILD PROTEIN-CALORIE MALNUTRITION]Onset: 66-51-7701HbliqewBscmfympbisrkm (1 source)Unspecified osteoarthritis, unspecified site; Translations: [UNSPECIFIED OSTEOARTHRITIS UNS SITE]Onset: 20-35-6590OpqdjjhRziqj aftercare (2 sources)Surgical follow-up; Translations: [Encounter for follow-up examination after completed treatment for conditions other than malignant neoplasm]57-82-9561NhyyfchhLebdn diseases of bladder and urethra (3 sources)Mass of urinary bladder; Translations: [Other specified disorders of bladder]24-55-1575LqioulkHlkfb diseases of bladder and urethra (2 sources)Other specified disorders of bladder; Translations: [Bladder mass] Onset: 83-01-4270IxaqxxaQhzxt lower respiratory disease (1 source)Personal history of pneumonia (recurrent); Translations: [PERSONAL HX OF PNEUMONIA RECURRENT]Onset: 38-06-0679IpdddkdiOlyep nutritional; endocrine; and metabolic disorders (1 source)Morbid (severe) obesity due to excess calories; Translations: [MORBID SEVERE OBES D/T EXCESS DIMITRIOS]Onset: 83-01-1566VkwfgstVrtkd nutritional; endocrine; and metabolic disorders (1 source)Body mass index (BMI) 36.0-36.9, adult; Translations: [BODY MASS INDEX BMI 36.0-36.9 ADULT]Onset: 10-54-6059IwgrgujIctvg nutritional; endocrine; and metabolic disorders (20 sources)Obese class I; Translations: [Obesity, unspecified]Onset: 06-18-2024 21-18-6823GdgyovxRfidb nutritional; endocrine; and metabolic disorders (20 sources)Obese class II; Translations: [Obesity, unspecified]Onset: 855736-53-5870QyippvcBrmqf nutritional; endocrine; and metabolic disorders (20 sources)Body mass index 30+ - obesity; Translations: [Obesity, unspecified] Onset: 306425-72-8774IpookxtEufqsjvg codes; unclassified (6 sources)Obstructive sleep apnea (adult) (pediatric); Translations: [OBSTRUCTIVE SLEEP APNEA]Onset: 46-01-2727ShkmvwyYzmklsat codes; unclassified (20 sources)Obstructive sleep apnea syndrome; Translations: [Obstructive sleep apnea (adult) (pediatric)]Onset: 246445-08-3923NxbdkbaVgvixxqy codes; unclassified (1 source)Personal history of other specified conditions; Translations: [PERSONAL HISTORY OTH SPEC CONDITION]Onset: 11-23-7753VfhyuqmzGoklblkfqmt failure; insufficiency; arrest (adult) (20 sources)Ventilator finding; Translations: [Dependence on respirator [ventilator] status]Onset: 06-18-2024 Resolved: 834148-94-6779GgqyrrtJdjotelxs and history of mental health and substance abuse codes (2 sources)Personal history of nicotine dependence; Translations: [Ex-smoker] Onset: 238127-24-6205DakrwfsyVohxiqvzvjc; intervertebral disc disorders; other back problems (1 source)Other intervertebral disc degeneration, lumbar region; Translations: [OTH IV DISC DEGEN LUMBAR REGION]Onset: 58-11-0143NhsqzjcOkxttbipars; intervertebral disc disorders; other back problems (1 source)Spinal stenosis, lumbar region without neurogenic claudication; Translations: [SPINAL STENOSIS LUMBAR REGION NO NC]Onset: 07-53-8282Zdlxhwsv Substance-related disorders (1 source)Nicotine dependence, cigarettes, uncomplicated; Translations: [NICOTINE DEPEND CIGARETTES UNCOMP]Onset: 97-60-9567JfjonlaTidtvseltyfp (3 sources)COUGH, UNSPECIFIED; Translations: [COUGH, UNSPECIFIED]Onset: 10-70-0742Zqdeolfdwzdh (4 sources)CONTACT W/AND (SUSP) EXPOS COVID-19; Translations: [CONTACT W/AND (SUSP) EXPOS COVID-19]Onset: 34-27-6709Hjzipretklru (3 sources)OTHER LOW BACK PAIN; Translations: [OTHER LOW BACK PAIN]Onset: 36-97-7219Mbrusehzznvw (2 sources)LOW BACK PAIN, UNSPECIFIED; Translations: [LOW BACK PAIN, UNSPECIFIED]Onset: 50-19-2281Eowrxvkwixzf (2 sources)Chronic atrial fibrillation, unspecified; Translations: [Atrial fibrillation, chronic (HCC)]Onset: 43-51-5816Wibhdjzsiajj (1 source)Obesity, Class II, BMI 35-39.9; Translations: [Obesity, Class II, BMI 35-39.9]Onset: 99-58-2272Urcaeonredet (1 source)NO IISK89-57-5983Nivjb infection (4 sources)COVID-19; Translations: [COVID-19]Onset: 05-22-2022 Past or Other Problems Problem ClassificationProblemDateDocumented DateEpisodic/ChronicAcute bronchitis (4 sources)Acute bronchitis, unspecified; Translations: [ACUTE BRONCHITIS UNSPECIFIED]Onset: 19-42-1467AtmlwgumTifoa posthemorrhagic anemia (20 sources)Acute posthemorrhagic anemia; Translations: [Acute posthemorrhagic anemia]Onset: 500743-81-7287AnbphoulKrwgftrzcddvyv/social admission (20 sources)Patient encounter status; Translations: [Persons encountering health services in other specified circumstances]Onset: 932823-82-3436Pywhiuzo Cancer of prostate (20 sources)Personal history of malignant neoplasm of prostate; Translations: [History of malignant neoplasm ofprostate]Onset: 724809-04-5843Cqnoutqm Cardiac dysrhythmias (1 source)Bradycardia, unspecified; Translations: [BRADYCARDIA UNSPECIFIED] Onset: 47-95-8271XwygtoitIufptxdxupf and hemorrhagic disorders (20 sources)Thrombocytopenia, unspecified; Translations: [Blood coagulation disorder]Onset: 10-15-2022 Resolved: 385669-77-8733IgtjnzoFpbvtlzx atherosclerosis and other heart disease (1 source)Presence of aortocoronary bypass graft; 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] Onset: 92-41-8298EqbkodwqMdiagriorv and other anemia (20 sources)Anemia; Translations: [Anemia, unspecified]Onset: 08-17-2024 81-92-6380ZyzqqlplFkouyxaf mellitus without complication (20 sources)Metabolic stress hyperglycemia; Translations: [Hyperglycemia, unspecified]Onset: 607707-95-7096TeppchgoGbvil and electrolyte disorders (20 sources)Hyperkalemia; Translations: [Hypervolemia]Onset: 03-19-2022 Resolved: 748031-76-9939MtfyqimdPnjdpwecuupam and screening for infectious disease (1 source)Encounter for immunization; Translations: [ENCOUNTER FOR IMMUNIZATION] Onset: 71-70-7833HufkuwloLramrdgltn infection (3 sources)Infectious gastroenteritis and colitis, unspecified; Translations: [Enterocolitis due to Clostridium difficile, not specified as recurrent]Onset: 72-96-9468DobznzmcMfdhoxtke of unspecified nature or uncertain behavior (2 sources)Neoplasm of bladder; Translations: [Neoplasm of unspecified behavior of bladder]Onset: 389912-90-1177WoxmbeeoRjwtctdyypk chest pain (2 sources)Chest pain; Translations: [Chest pain, unspecified]Onset: 07-03-2024 87-93-3268VrewizqrZxcne aftercare (1 source)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; Translations: [OTH CUSTODIAL CURRENT DRUG THERAPY]Onset: 22-97-5290LcdkccdfFrqvo aftercare (20 sources)Long-term current use of anticoagulant; Translations: [FDC (current) use of anticoagulants]Onset: 906288-49-8402GcnpgqlmImdth aftercare (1 source)Encounter for follow-up examination after completed treatment for conditions other than malignant neoplasm; Translations: [Surgery follow-up] Onset: 24-08-4795MfxyxdvuWnewi circulatory disease (20 sources)Low blood pressure; Translations: [Other hypotension]Onset: 06-18-2024 Resolved: 255277-25-1456CcvexdbcFgvdz nervous system disorders (20 sources)Postoperative pain ; Translations: [Other acute postprocedural pain] Onset: 674822-60-3143IsqpufzwTspcr nervous system disorders (1 source)Other acute postprocedural pain; Translations: [Postoperative pain] Onset: 22-17-6957DqiqcpaxBjpbs screening for suspected conditions (not mental disorders or infectious disease) (1 source)Encounter for screening for other disorder; Translations: [Screening for genitourinary condition]Onset: 54-36-7202ZcqaaidcGqxtxazv; pneumothorax; pulmonary collapse (20 sources)Atelectasis; Translations: [Atelectasis]Onset: EpisodicPneumonia (except that caused by tuberculosis or sexually transmitted disease) (1 source)Pneumonia, unspecified organism; Translations: [PNEUMONIA UNSPECIFIED ORGANISM]Onset: 76-53-6918CrxcsnasShtweijzqqe failure; insufficiency; arrest (adult) (1 source)Acute respiratory failure with hypoxia; Translations: [ACUTE RESPIRATORY FAIL W/HYPOXIA]Onset: 79-14-2830HpnqmdvoSpfwaml (3 sources)Syncope and collapse; Translations: [SYNCOPE AND COLLAPSE]Onset: 38-68-0403BfcdmoejDsdnyqxsijbh (1 source)CONTACT W/AND (SUSP) EXPOS COVID-19; Translations: [CONTACT W/AND (SUSP) EXPOS COVID-19]Onset: 79-26-2474Wbreqywhdzcl (1 source)OTHER LOW BACK PAIN; Translations: [OTHER LOW BACK PAIN]Onset: 36-51-7603Gqnzkigkfjxb (1 source)LOW BACK PAIN, UNSPECIFIED; Translations: [LOW BACK PAIN, UNSPECIFIED] Onset: 32-68-6708Tyclxhmnjtyn (1 source)COUGH, UNSPECIFIED; Translations: [COUGH, UNSPECIFIED]Onset: 05-21-2022 Results Test NameValueInterpretationReference RangeFacilityOrders Onlyon 09-07-2025 Orders [id number] JmBrian 1950 M Date Provider Department [place] 09/07/2025 [facility] Family History Problem Relation Age of Onset Coronary artery disease Mother Family Status - Relation Status Age at Mother Father Sister Brother DeceasedNoalUProMedica [place] HospitalOrders Onlyon 35-09-8875Ekfybd [id number] Brian Oneal 1950 M Date Provider Department Center 07/28/2025 MODESTO BANSAL [facility] Family History Problem Relation Age of Onset Coronary artery disease Mother Family Status - Relation Status Age at Mother Father Sister Brother DeceasedNoChillicothe HospitalOrders Onlyon 03-89-4031Kfylyf [id number] Brian Oneal 1950 M Date Provider Department Center 06/27/2025 [facility] Family History Problem Relation Age of Onset Coronary artery disease Mother Family Status - Relation Status Age at Mother Father Sister Brother DeceasedMagruder Memorial HospitalOrders Onlyon 77-65-6077Wllxpz [id number] Brian Oneal 1950 Date Provider Department Center 04/10/2025 325-[facility]PHANIE FLOWERS C [facility] Family History Problem Relation Age of Onset Coronary artery disease Mother Family Status - Relation Status Age at Mother Father Sister Brother DeceasedMagruder Memorial HospitalOffice Visiton 02-44-7282Jflxsj-up [id number] Brian Oneal 1950 Date Provider Department Center 03/11/2025 DARRELL ELIZABETH RAMAKRISHNA [facility] Family History Problem Relation Age of Onset Coronary artery disease Mother Family Status - Relation Status Age at Mother Father Sister Brother Level of Service:27360 AL OFFICE/OUTPATIENT ESTABLISHED MOD MDM 30 MIN Reason for Visit and Comments: Coronary Artery Disease [187] Atrial Fibrillation [80]NormalUnMetroHealth Parma Medical CenterCNPNon 16-27-4917CZPRNhfrkjNbwmsygei Clinic ClevelandOffice Visiton 44-28-6816Kwcixx-up [id number] Brian Oneal 1950 Date Provider Department [facility]24 [facility]OL[facility] RAMAKRISHNA García Hos Family History Problem Relation Age of Onset Coronary artery disease Mother Family Status - Relation Status Age at Mother Level of Service:11362 AL OFFICE/OUTPATIENT ESTABLISHED LOW MDM 20 [facility] HospitalCNPNon 06-05-2540TADVDrsbhkJktbegyhg Clinic ClevelandCNPNon 10-68-5663BEKFFvvexxFqcwxlqay Clinic ClevelandCNOVSPon 42-08-6481ZGHKJHRnlkroErneeadcj Clinic ClevelandCNPNon 89-19-9715MMREGywhpc [facility] Cleveland-FairhillGLUCOSE, BLOOD (POC)on 58-91-7960Fjxrebp [Mass/Vol]104 mg/yRHwtwuysa82 - 99 mg/dLDayton Children's Hospital on above:Location:[facility], [address] [place] [address] [place], [place], [address] The Accu-Chek Inform II glucose meter has [...] above situations. Interpretation and review of laboratory resultsAbnormalCCleveland ClinicNM PET/CT SKULL-THIGH INITon 79-65-6055VM PET/CT SKULL-THIGH INITNormal [facility] W Auto Differential panel (Bld)on 09-07-2024 Basophils (Bld) [#/Vol]10*3/uLNormal<0.11CSt. [facility] on above:Order Comment: Specimen Type: BLOOD SPECIMENOrdering Facility: [facility] Address:[address] [place], [place] [address]Fqiwlqnup By: #### 11920-2 ####[facility] LABCLIA [id number] [place], [place] [address]Qzzffrwsr/100 WBC (Bld)0.3 %NormalKettering Health Behavioral Medical Center on above:Order Comment: Specimen Type: BLOOD SPECIMENOrdering Facility: [facility] Address:[address] [place], [place] [address]Performed By: #### 39502-7 ####[facility] LABCLIA [id number] [place], [place] [address]Wuphapxrxrdp cell count method Nom (Bld)AutoNormalClevelMarymount Hospital on above:Order Comment: Specimen Type: BLOOD SPECIMENOrdering Facility: [facility] Address:[address] [place], [place] [address]Performed By: #### 49384-9 ####[facility] LABCLIA [id number] [place], [place] [address]Rouezwcmand (Bld) [#/Vol]0.14 10*3/uLNormal<0.46[facility] on above:Order Comment: Specimen Type: BLOOD SPECIMENOrdering Facility: [facility] Address:[address] [place], [place] [address]Performed By: #### 18916-8 ####[facility] LABIA [id number] [place], [place] [address]Kajrvyjuvtt/100 WBC (Bld)1.8 %NormalKettering Health Behavioral Medical Center on above:Order Comment: Specimen Type: BLOOD SPECIMENOrdering Facility: [facility] Address:[address] [place], [place] [address]Performed By: #### 81770-5 ####[facility] LABIA [id number] [place], [place] [address]Zsmwadqgyep distribution width (RBC) [Ratio]14.7 %Normal 11.5-15.0[facility] on above:Order Comment: Specimen Type: BLOOD SPECIMENOrdering Facility: [facility] Address:[address] [place], [place] [address]Performed By: #### 83777-8 ####[facility] LABCLIA [id number] [place] [address] Hematocrit (Bld) [Volume fraction]43.6 %Yvtvto47.0-51.0[facility] on above:Order Comment: Specimen Type: BLOOD SPECIMENOrdering Facility: [facility] Address:[address] [place], [place] [address]Performed By: #### 78698-3 ####[facility] LABIA [id number] [place], [place] [address]Hsbfidznis (Bld) [Mass/Vol]13.4 g/hXStotsh53.0-17.0[facility] on above:Order Comment: Specimen Type: BLOOD SPECIMENOrdering Facility: [facility] Address:[address] [place], [place] [address]Performed By: #### 89941-4 ####[facility] LABIA [id number] [place], [place] [address]Sniubchy granulocytes (Bld) [#/Vol]0.06 10*3/uLNormal <0.10[facility] on above:Order Comment: Specimen Type: BLOOD SPECIMENOrdering Facility: [facility] Address:[address] [place], [place] [address]Performed By: #### 96879-4 ####[facility] LABIA [id number] [place], [place] [address]Xhnqhcxb granulocytes/100 WBC (Bld)0.8 %NormalKettering Health Behavioral Medical Center on above: Order Comment: Specimen Type: BLOOD SPECIMENOrdering Facility: [facility] Address:[address] [place], [place] [address]Performed By: #### 78779- 8 ####[facility] LABIA [id number] [place], [place] [address]Hhzoegbrwyj (Bld) [#/Vol]1.40 10*3/uLNormal1.00-4.00 [facility] on above:Order Comment: Specimen Type: BLOOD SPECIMENOrdering Facility: [facility] Address:[address] [place], [place] [address]Performed By: #### 44985-9 ####[facility] LABIA [id number] [place], [place] [address]Lsxrnrlmrhl/100 WBC (Bld)17.8 %NormalKettering Health Behavioral Medical Center on above:Order Comment: Specimen Type: BLOOD SPECIMENOrdering Facility: [facility] Address:[address] [place], [place] [address]Performed By: #### 39955-7 ####[facility] LABIA [id number] [place], [place] [address]GLE (RBC) [Entitic mass]27.3 nxJiscoy49.0-34.0[facility] on above:Order Comment: Specimen Type: BLOOD SPECIMENOrdering Facility: [facility] Address:[address] [place], [place] [address]Performed By: #### 71463-2 ####[facility] LABIA [id number] [place], [place] [address]JWYF (RBC) [Mass/Vol]30.7 g/wVBrpsyy00.5-36.0[facility] on above: Order Comment: Specimen Type: BLOOD SPECIMENOrdering Facility: [facility] Address:[address] [place], [place] [address]Performed By: #### 97478- 8 ####[facility] LABIA [id number] [place], [place] [address]KKG (RBC) [Entitic vol]88.8 rWBnpttp96.0-100.0[facility] on above:Order Comment: Specimen Type: BLOOD SPECIMENOrdering Facility: [facility] Address:[address] [place], [place] [address]Performed By: #### 22686-3 ####[facility] LABCLIA [id number] [place], [place] [address]Kavjnrzue (Bld) [#/Vol]0.67 10*3/uLNormal<0.87[facility] on above:Order Comment: Specimen Type: BLOOD SPECIMENOrdering Facility: [facility] Address:[address] [place], [place] [address]Performed By: #### 45205- 8 ####[facility] LABCLIA [id number] [place], [place] [address]Kzygbdmhe/100 WBC (Bld)8.5 %NormalKettering Health Behavioral Medical Center on above:Order Comment: Specimen Type: BLOOD SPECIMENOrdering Facility: [facility] Address:[address] [place], [place] [address]Performed By: #### 68303-8 ####[facility] LABIA [id number] [place], [place] [address]Oqfaahiyuux (Bld) [#/Vol]5.58 10*3/uLNormal1.45-7.50[facility] on above:Order Comment: Specimen Type: BLOOD SPECIMENOrdering Facility: [facility] Address:[address] [place], [place] [address]Performed By: #### 51682-7 ####[facility] LABCLIA [id number] [place], [place] [address]Zvqxpujrpri/100 WBC (Bld)70.8 %NormalKettering Health Behavioral Medical Center on above:Order Comment: Specimen Type: BLOOD SPECIMENOrdering Facility: [facility] Address:[address] [place], [place] [address]Performed By: #### 13164-9 ####[facility] LABIA [id number] [place], [place] [address]Crvjmqivf RBC (Bld) [#/Vol] 10*3/uLNormal<0.01[facility] ClevelandComment on above:Order Comment: Specimen Type: BLOOD SPECIMENOrdering Facility: [facility] Address:[address] [place], [place] [address]Performed By: #### 98805-7 ####[facility] LABCLIA [id number] [place], [place] [address]Scxrmkhhj RBC/100 WBC (Bld) [Ratio]0.0 /100 WBCNormal [facility] on above:Order Comment: Specimen Type: BLOOD SPECIMENOrdering Facility: [facility] Address:[address] [place], [place] [address]Performed By: #### 08585-2 ####[facility] LABCLIA [id number] [place], [place] [address]Vyrlkfis mean volume (Bld) [Entitic vol]9.1 fLNormal9.0-12.7CSt. [facility] on above:Order Comment: Specimen Type: BLOOD SPECIMENOrdering Facility: [facility] Address:[address] [place] [address] Performed By: #### 14608-8 ####[facility] LABCLIA [id number] [place], [place] [address]Aqsesqdyw (Bld) [#/Vol]209 10*3/hDZirdbn541-730UuzyutqmmKettering Health Behavioral Medical Center on above:Order Comment: Specimen Type: BLOOD SPECIMENOrdering Facility: [facility] Address:[address] [place], [place] [address]Performed By: #### 19484-3 ####[facility] LABCLIA [id number] [place], [place] [address]RAQ (Bld) [#/Vol]4.91 10*6/uLNormal4.20-6.00[facility] on above:Order Comment: Specimen Type: BLOOD SPECIMENOrdering Facility: [facility] Address:[address] [place], [place] [address]Performed By: #### 02846-6 ####[facility] LABCLIA [id number] [facility] [place], [place] [address]YDW (Bld) [#/Vol]7.87 10*3/uLNormal3.70-11.00[facility] on above: Order Comment: Specimen Type: BLOOD SPECIMENOrdering Facility: [facility] Address:[address] [place], [place] [address]Performed By: #### 95213- 8 ####[facility] LABCLIA [id number] [facility] RAD[facility]ODY HOSPITALNestorF[place], [place] [address]PYZDZBJdo 97-14-6007SMDRHNTUjjtmnCmizvxskw Clinic ClevelandCNOVSPon 21-39-8394WGMJONIsdenfQjcwixwlt Clinic ClevelandCNPNon 13-47-1194MTPKPhrsszAuzrvfppd Clinic ClevelandComprehensive metabolic 2000 panel on 15-03-5654Twwaiej [Mass/Vol]4.0 g/dLNormal3.9-4.9CSumma Health [facility] Comment on above:Order Comment: Specimen Type: BLOOD SPECIMENOrdering Facility: [facility] Address:[address] [place] [address] Performed By: #### 21153-4 ####[facility] LABCLIA [id number] [facility] [place], [place] [address]FRH [Catalytic activity/Vol]49 U/JQrjinc16-653CpxegfywjKettering Health Behavioral Medical Center on above:Order Comment: Specimen Type: BLOOD SPECIMENOrdering Facility: [facility] Address:[address] [place], [place] [address]Performed By: #### 08229-0 ####[facility] LABCLIA [id number] [facility] [place], [place] [address]QSN [Catalytic activity/Vol]8 U/XFqc91-92XtrjwjbsnKettering Health Behavioral Medical Center on above:Order Comment: Specimen Type: BLOOD SPECIMENOrdering Facility: [facility] Address:[address] [place], [place] [address]Performed By: #### 83248-2 ####[facility] LABCLIA [id number] [place], [place] [address]Vvsch gap [Moles/Vol]10 mmol/L Normal8-15[facility] on above:Order Comment: Specimen Type: BLOOD SPECIMENOrdering Facility: [facility] Address:[address] [place], [place] [address]Performed By: #### 63053-5 ####[facility] LABCLIA [id number] [place] [address] AST [Catalytic activity/Vol]11 U/XJgy74-11CubjtydplKettering Health Behavioral Medical Center on above:Order Comment: Specimen Type: BLOOD SPECIMENOrdering Facility: [facility] Address:[address] [place], [place] [address]Performed By: #### 30345-9 ####[facility] LABCLIA [id number] [facility], [place] [address]Anwogxtcc [Mass/Vol]0.5 mg/dLNormal0.2-1.3CSt. [facility] on above:Order Comment: Specimen Type: BLOOD SPECIMENOrdering Facility: [facility] Address:[address] [place], [place] [address]Performed By: #### 72532-2 ####[facility] LABCLIA [id number] [place], [place] [address]Urypodl [Mass/Vol]9.1 mg/dLNormal8.5-10.2CSt. [facility] on above: Order Comment: Specimen Type: BLOOD SPECIMENOrdering Facility: [facility] Address:[address] [place], [place] [address]Performed By: #### 64038- 8 ####[facility] LABCLIA [id number] [facility] [place], [place] [address]Clslklci [Moles/Vol]102 mmol/MOymxcx01-131VzgtdexzhKettering Health Behavioral Medical Center on above:Order Comment: Specimen Type: BLOOD SPECIMENOrdering Facility: [facility] Address:[address] [place], [place] [address]Performed By: #### 10723-8 ####[facility] LABCLIA [id number] [place], [place] [address]NT6 [Moles/Vol] 26 mmol/MYantdz91-09EzluqivelKettering Health Behavioral Medical Center on above:Order Comment: Specimen Type: BLOOD SPECIMENOrdering Facility: [facility] Address:[address] [place], [place] [address]Performed By: #### 23097-8 ####[facility] LABCLIA [id number] [place], [place] [address]Fstyxdlrau [Mass/Vol]1.35 mg/dLHigh0.73-1.22[facility] on above:Order Comment: Specimen Type: BLOOD SPECIMENOrdering Facility: [facility] Address:[address] [place], [place] [address]Performed By: #### 17756-6 ####[facility] LABIA [id number] [place], [place] [address]Pjpohdkqyq and Glomerular filtration rate.predicted panel (S/P/Bld)54 mL/min/1.73m???Low>=60 [facility] on above:Order Comment: Specimen Type: BLOOD SPECIMENOrdering Facility: [facility] Address:[address] [place], [place] [address]Result Comment: Estimated Glomerular Filtration Rate (eGFR) is calculated using the 2020 CKD-EPI creatinine equation. This equation utilizes serum creatinine, sex, and age as parameters. The creatinine assay has traceable calibration to isotope dilution-mass spectrometry. Refer to KDIGO guidelines for clinical interpretation. In patients with unstable renal function, e.g. those with acute kidney injury, the eGFR may not accurately reflect actual GFR.Performed By: #### 54668-5 ####[facility] LABCLIA [id number] [facility] [place], [place] [address]Xyzumtq [Mass/Vol]96 mg/hCJxenhj30-03FnxtgktnnKettering Health Behavioral Medical Center on above:Order Comment: Specimen Type: BLOOD SPECIMENOrdering Facility: [facility] Address:[address] [place], [place] [address]Result Comment: The [place] Diabetes Association (ADA) provides guidance for cutoff values for fast ing glucose and random glucose. The ADA defines fasting as no caloric intake for at least 8 hours. Fasting plasma glucose results between 100 to 125 mg/dL indicate increased risk for diabetes (prediabetes).Fasting plasma glucose results greater than or equal to 126 mg/dL meet the criteria for diagnosis of diabetes. In the absence of unequivocal hyperglycemia, results should be confirmed by repeattesting. In a patient with classic symptoms of hyperglycemia or hyperglycemic crisis, random plasmaglucose results greater than or equal to 200 mg/dL meet the criteria for diagnosis of diabetes.Reference: Standards of Medical Care in Diabetes 2016, [place] [employer]. Diabetes Care. 2016.39(Suppl 1).Performed By: #### 22838-7 ####[facility] LABCLIA [id number] [place], [place] [address]Wdpvllgxd [Moles/Vol]5.0 mmol/LNormal3.7-5.1CSt. [facility] on above: Order Comment: Specimen Type: BLOOD SPECIMENOrdering Facility: [facility] Address:[address] [place], [place] [address]Performed By: #### 45473- 8 ####[facility] LABCLIA [id number] [place], [place] [address]Eggaayk [Mass/Vol]6.4 g/dLNormal6.3-8.0[facility] on above:Order Comment: Specimen Type: BLOOD SPECIMENOrdering Facility: [facility] Address:[address] [place], [place] [address]Performed By: #### 75468-8 ####[facility] LABCLIA [id number] [place], [place] [address]Utujqa [Moles/Vol]138 mmol/L Xymnaj790-330ZjnkftnvfKettering Health Behavioral Medical Center on above:Order Comment: Specimen Type: BLOOD SPECIMENOrdering Facility: [facility] Address:[address] [place] [address]Btvehcard By: #### 62165-2 ####[facility] LABCLIA [id number] [place] [address] Urea nitrogen [Mass/Vol]23 mg/dLNormal9-[facility]-FairhillComselect specialty hospital-[facility] on above:Order Comment: Specimen Type: BLOOD SPECIMENOrdering Facility: [facility] Address:[address] [place] [address]Lglwvzjbe By: #### 31604-2 ####[facility] LABCLIA [id number] [place], [place] [address]KVGQum 46-18-9228HITDRiypwuNsbqufwbr Randolph HealthCNPNon 20-72-2946YQCGEqvewfFmegxzmrm Clinic ClevelandCNCNPATEDon 46-64-8894SMPWAZKACAwnwjbZpkamwdpj [facility] HealthCNPNon 15-13-9413WCMNGmzwur [facility]-FairhillCNPNon 04-52-1125FJQTDirlxkUiodyrrcj Clinic [place] CNOVSPon 45-31-3576LLBJYFKnxpdjOzxetensn [facility] HealthCNPNon 53-21-2891TZFY NormalSelect Medical Specialty Hospital - Cleveland-FairhillCNPNon 77-93-4708ICGSUxoartOxenlxmsl Clinic ClevelandCNPNon 90-70-5214PDODFyxlkzIibvizdsv Clinic ClevelandANES POSTPROC EVAL on 26-41-9604QSCD POSTPROC EVALNormalCSumma Health Akron CampusANES PRE-OPon 17-86-6552IDUY PRE-OPNormalSelect Medical Specialty Hospital - Cleveland-FairhillOPERATIVE NOon 08-20-2024 OPERATIVE NONormalSelect Medical Specialty Hospital - Cleveland-FairhillSURGICAL PATHOLOGYon 87-62-7793IQQI REPORTNoWright-Patterson Medical Center on above:Order Comment: Specimen Type: TISSUE SPECIMENOrdering Facility: [facility] Address: [address] [place] [address]Hdfyun Comment: Surgical Pathology Report Case: [id number] Provider: Elliott Sanchez MD Collected: 08/20/2024 08:24 AMOrdering Location: Admitting Received: 08/20/2024 11:44 AMPathologist: Mayte De Jesus MDSpecimens: A) - Colon, Ascending Polyp, ascending polyp x3 B) - Colon, Hepatic Flexure, Polyp, hepatic flexure x4 C) - Colon, Transverse, Biopsy, transverse colon lesion biopsy D) - Colon, Transverse, Polyp, transverse colon polyp x2 E) - Colon, Descending, Polyp, colon,descending x2 F) - Colon, Descending, Polyp, desending colon # 3 G) - Colon, Sigmoid, Polyp, sigmoid colon x3 H)- Rectum, Polyp, rectum polp x1 I) - Bladder, Transurethral Resection, bladder dome tumor J) - Bladder, Transurethral Resection, posterior wall tumor Performed By: #### S ####[facility] [id number] [place] [address] [place] STATES OF AMERICACLINICAL HISTORYNormalCSumma Health Akron CampusComment on above:Order Comment: Specimen Type: TISSUE SPECIMENOrdering Facility: [facility] Address: [address] [place], [place] [address]Result Comment: Pre-op diagnosis:Rectal cancer (HCC) [C20]Bladder mass [N32.89]Performed By: #### S ####[facility] [id number] [address] STATES OF AMERICADIAGNOSIS COMMENTNoSelect Medical Specialty Hospital - TrumbullComselect specialty hospital-[facility]int on above:Order Comment: Specimen Type: TISSUE SPECIMENOrdering Facility: [facility] Address: [address] [place], [place] [address]Result Comment: Immunohistochemical stains were performed (I and J) and [...] been determined by the performing laboratory within [facility]???s [facility] Pathology and Laboratory Medicine Department ([facility], [facility], [facility], [facility], [facility], or [facility]) in a manner consistent with CLIA requirements. One or more of these tests have not been cleared or approved by the FDA. [facility] is regulated under CLIA as qualified to perform high- complexity testing. These tests are used for clinical purposes. They should not be regarded as investigational or for research. Positive and negative controls stain appropriately.Performed By: #### S ####[facility] LABCLIA [id number] [address] DIAGNOSISNoWright-Patterson Medical Center on above:Order Comment: Specimen Type: TISSUE SPECIMENOrdering Facility: [facility] Address: [address] [place], [place] [address]Result Comment: A. Ascending colon, polypectomy:- Fragments of tubular adenoma.B. Hepatic [...] widely invasive of lamina propria (see comment).- Nomuscularis propria identified.J. Urinary bladder, posterior wall, transurethral resection:- High-grade papillary urothelial carcinoma, invasive of lamina propria (see comment).- Muscularis propria ispresent and uninvolved by tumor. Performed By: #### S ####[facility] LABCLIA [id number] [address] LABNormAultman Orrville Hospital on above:Order Comment: Specimen Type: TISSUE SPECIMENOrdering Facility: [facility] Address: [address] [place], [place] [id number] Comment: Diagnostic interpretation performed at [facility], [address] [place], [place] [address] CLIA# [id number] Director: Jeffrey Tolentino M.D.Performed By: #### S ####[facility] LABCLIA [id number] [facility]ORID[facility] [id number] OF HENRY COUNTY HOSPITALGROSS DESCRIPTIONNormalCSumma Health Akron CampusComselect specialty hospital-flint on above:Order Comment: Specimen Type: TISSUE SPECIMENOrdering Facility: [facility] Address: [address] [place], [place] [address]Result Comment: A. Colon, Ascending PolypReceived in formalin are multiple pieces of aguirre, soft tissue aggregating to 1.6 x 0.4 x 0.2 cm. Totally submitted in two cassettes.B. Colon, Hepatic Flexure, PolypReceived in formalin are multiple pieces of aguirre, soft tissue aggregating to 2.0 x 1.7 x 0.2 cm.Totally submitted in nine cassettes.C. Colon, Transverse, BiopsyReceived in formalin are two piecesof aguirre, soft tissue aggregating to 0.6 x [...] are multiple segments of aguirre, polypoid tissue rangingin size from 2.1 x 1.7 x 0.3 cm to 0.1 x 0.1 x 0.1 cm. No stalks are present. The line of resectionis present. The larger specimen is bisected. The remaining specimen are not sectioned. Totally submi tted in four cassettes.G. Colon, Sigmoid, PolypReceived in formalin are two pieces of aguirre, soft tissue aggregating to 0.7 x 0.3 x 0.2 cm. Totally submitted in one cassette.H. Rectum, PolypReceived informalin is a segment of aguirre-red, polypoid tissue [...] submitted in one cassette.Gross examination performed at [facility], [address] [place] [address] August 20, 2024 1:37 PMPerformed By: #### S ####[facility] LABCLIA [id number] [place] [address] [place] OF AMERICACNOVon 01-64-9070OQZXIipfmyAlcgxhhen Randolph HealthCNPTOUTREACHon 00-93-6289KXHVXUJQHMIKHvtsklAfiktprai Clinic StellaPOTASSIUMon 80-91-3141Hykptnkto [Moles/Vol]5.2 mmol/LHigh3.7-5.1 [facility] Cleveland-FairhillComment on above:Order Comment: Specimen Type: BLOOD SPECIMENOrdering Facility: [facility] Address:[address] [place], [place] [address]Performed By: #### K1 ####[facility] [id number] [place] [address] [place] AMERICABacteria Ur Culton [id number] identified Cx Nom (U)ORGANISM ID: 1 <10,000 CFU/ml Normal urogenital floraNoThe Valley Hospital HospitalComment on above: Performed By: #### 630-4 #### [facility] CLIA [id number] [address] [place], [place] [id number] [id number] [address] [place] AMERICABasic metabolic 2000 panelon [id number] gap [Moles/Vol]12 mmol/LNormal8-15Avon HospitalComment on above:Order Comment: Specimen Type: BLOOD SPECIMEN Ordering Facility: [facility] Address: [address] [place], [place] [address]Performed By: #### 31803-9 #### [facility] CLIA [id number] [address] [place] [address] [place] AMERICACalcium [Mass/Vol]9.6 mg/dLNormal8.5-10.2 Nia HospitalComment on above:Order Comment: Specimen Type: BLOOD SPECIMEN Ordering Facility: [facility] Address: [address] [place], [place] [address]Performed By: #### 06825-0 #### [facility] IA [id number] [address] [place] [address] [place] AMERICAChloride [Moles/Vol]102 mmol/LNormal 98-107Av HospitalComment on above:Order Comment: Specimen Type: BLOOD SPECIMEN Ordering Facility: [facility] Address: [address] [place], [place] [address]Performed By: #### 13672-3 #### [facility] IA [id number] [address] [place] [address] [place] AMERICACO2 [Moles/Vol]25 mmol/FNybhsy81-55Aoxc HospitalComment on above:Order Comment: Specimen Type: BLOOD SPECIMEN Ordering Facility: [facility] Address: [address] [place], [place] [address]Performed By: #### 86196-1 #### [facility] CLIA [id number] [address] [place] [address] [place] AMERICACreatinine [Mass/Vol]1.46 mg/dLHigh 0.73-1.22Av HospitalComment on above:Order Comment: Specimen Type: BLOOD SPECIMEN Ordering Facility: [facility] Address: [address] [place], [place] [address]Performed By: #### 20340-8 #### [facility] CLIA [id number] [facility] [place] [address] [place] AMERICACreatinine and Glomerular filtration rate.predicted panel (S/P/Bld)50 mL/min/1.73m???Low>=60Av HospitalComment on above:Order Comment: Specimen Type: BLOOD SPECIMEN Ordering Facility: [facility] Address: [address] [place], [place] [address]Result Comment: Estimated Glomerular Filtration Rate (eGFR) is calculated using the 2020 CKD-EPI cre atinine equation. This equation utilizes serum creatinine, sex, and age as parameters. The creatinine assay has traceable calibration to isotope dilution- mass spectrometry. Refer to KDIGO guidelines for clinical interpretation. In patients with unstable renal function, e.g. those with acute kidney injury, the eGFR may not accurately reflect actual GFR.Performed By: #### 42105-9 #### [facility] CLIA [id number] [facility] [place] [address] [place] AMERICAGlucose [Mass/Vol]103 mg/mUQyax91-16Znmh HospitalComment on above:Order Comment: Specimen Type: BLOOD SPECIMEN Ordering Facility: [facility] Address: [address] [place], [place] [address]Result Comment: The [place] Diabetes Association (ADA) provides guidance for cutoff [...] Standards of Medical Care in Diabetes 2016, [place] Diabetes Association. Diabetes Care. 2016.39(Suppl 1).Performed By: #### 73121-2 #### [facility] CLIA [id number] [address] [place] [address] [place] AMERICAPotassium [Moles/Vol]5.3 mmol/LHigh 3.7-5.1Avon HospitalComment on above:Order Comment: Specimen Type: BLOOD SPECIMEN Ordering Facility: [facility] Address: [address] [place], [place] [address]Performed By: #### 10747-9 #### [facility] CLIA [id number] [address] [place] [address] [place] AMERICASodium [Moles/Vol]139 mmol/RFmlrcy656-254 [place] HospitalComment on above:Order Comment: Specimen Type: BLOOD SPECIMEN Ordering Facility: [facility] Address: [address] [place] [address]Jarlgzbqe By: #### 70866-2 #### [facility] IA [id number] [address] [place] [address] [place] AMERICAUrea nitrogen [Mass/Vol]18 mg/dLNormal 9-24Av HospitalComment on above:Order Comment: Specimen Type: BLOOD SPECIMEN Ordering Facility: [facility] Address: [address] [place] [address]Jcfpqwlbm By: #### 72740-1 #### [facility] IA [id number] [address] [place] [address] [place] AMERICACBC panel Auto (Bld)on 08-17-2024 Erythrocyte distribution width (RBC) [Ratio]14.4 %Qiiqtq37.5-15.0[facility] Comment on above:Order Comment: Specimen Type: BLOOD SPECIMEN Ordering Facility: [facility] Address: [address] [place] [address]Pzmaokmhw By: #### 30242-3 #### [facility] IA [id number] [address] [place] [address] [place] AMERICAHematocrit (Bld) [Volume fraction]44.3 % Dmwdif61.0-51.0[facility] HospitalComment on above:Order Comment: Specimen Type: BLOOD SPECIMEN Ordering Facility: [facility] Address: [address] [place], [place] [address]Performed By: #### 76419-6 #### [facility] IA [id number] [address] [place] [address] [facility] MEDICAL CENTERHemoglobin (Bld) [Mass/Vol]13.5 g/dL Kkepzn57.0-17.0Av HospitalComment on above:Order Comment: Specimen Type: BLOOD SPECIMEN Ordering Facility: [facility] Address: [address] [place], [place] [address]Performed By: #### 31763-3 #### [facility] IA [id number] [address] [place] [address] [facility]H (RBC) [Entitic mass]27.8 pgNormal 26.0-34.0Av HospitalComment on above:Order Comment: Specimen Type: BLOOD SPECIMEN Ordering Facility: [facility] Address: [address] [place], [place] [address]Performed By: #### 65242-4 #### [facility] IA [id number] [address] [place] [address] [facility] EASTHC (RBC) [Mass/Vol]30.5 g/dLNormal 30.5-36.0Av HospitalComment on above:Order Comment: Specimen Type: BLOOD SPECIMEN Ordering Facility: [facility] Address: [address] [place], [place] [address]Performed By: #### 37247-0 #### [facility] IA [id number] [address] [place] [address] [facility] EASTV (RBC) [Entitic vol]91.2 fLNormal 80.0-100.0Av HospitalComment on above:Order Comment: Specimen Type: BLOOD SPECIMEN Ordering Facility: [facility] Address: [address] [place], [place] [address]Performed By: #### 76736-0 #### [facility] IA [id number] [address] [place] [address] [facility] RBC (Bld) [#/Vol]10*3/uLNormal <0.01Avon HospitalComment on above:Order Comment: Specimen Type: BLOOD SPECIMEN Ordering Facility: [facility] Address: [address] [place], [place] [address]Performed By: #### 35890-6 #### [facility] IA [id number] [address] [facility] [place] [address] UNITED [facility]ITAL ALLEGHANYPlatelet mean volume (Bld) [Entitic vol] 10.1 fLNormal9.0-12.7Avon HospitalComment on above:Order Comment: Specimen Type: BLOOD SPECIMEN Ordering Facility: [facility] Address: [address] [place], [place] [address]Performed By: #### 07261-8 #### [facility] IA [id number] [address] [facility] [place] [address] [place] [facility] HOSPITALPlatelets (Bld) [#/Vol]252 10*3/uLNormal 150-400Avon HospitalComment on above:Order Comment: Specimen Type: BLOOD SPECIMEN Ordering Facility: [facility] Address: [address] [place], [place] [address]Performed By: #### 21999-4 #### [facility] IA [id number] [address] [place] [address] [place] AMERICARBC (Bld) [#/Vol]4.86 10*6/uLNormal 4.20-6.00Av HospitalComment on above:Order Comment: Specimen Type: BLOOD SPECIMEN Ordering Facility: [facility] Address: [address] [place] [address]Yshwlenex By: #### 66377-2 #### [facility] IA [id number] [address] [facility] [place] [address] [place] AMERICAWBC (Bld) [#/Vol]8.98 10*3/uLNormal 3.70-11.00Avon HospitalComment on above:Order Comment: Specimen Type: BLOOD SPECIMEN Ordering Facility: [facility] Address: [address] [place], [place] [address]Performed By: #### 92084-1 #### [facility] CLIA [id number] [facility] [place] [address] [facility] COUNTY HOSPITALCNPNon [id number] (AVPANE) BRIAN ONEAL ([id number]) 1950 M Date Time Provider Department 08/17/24 [...] proceed? Thank you. Sincerely, Riya Liu PA-C [facility] Riya Liu PA-C 08/18/2024 10:42 AM Signed Tamiko Mcduffie APRN.DIRECTOR OF PHYSICAL EDUCATION You; Masood Wilder MD; Rena Murphy RN15 hours ago (7:08 PM) [place], We are the cardiac surgery team. This pt was to have a cardiology appt for clearance for his upcoming surgery, I believe he saw a local oil pit attendant outside of the [facility] who can give [...] his ASA? Thank you. Riya Liu PA-C [facility] Riya Liu PA-C 08/19/2024 9:[address] Sanchez, patient OK to stay on ASA martha-operatively. Still working on getting optimization from cardiology office. Letter re-faxed. Riya Liu PA-C [facility] Riya Liu PA-C 08/19/2024 9:54 AM Signed [...] 40 mg by mo (more content not included)...[facility] PHYSICALon [id number] PHYSICALHNO ID: [id number] Author: RIYA LIU PA-C Service: ? Author Type: Physician Manager Center Type: H&P Filed: 08/19/2024 09:57 Note Text: [...] atorvastatin (Lipitor). 4. Coronary artery disease involving [place] coronary artery of [place] heart without angina pectoris Left heart cath [...] on 08/11/24. 6. RVF (right ventricular failure) ([facility]) 7. Pacemaker Pacemaker placed in 2021. Right [...] mass in May 2024 during colonoscopy in [place]. No previous treatments have been done. See [...] years old Male patient (more content not included)...NormalAvParkview Hospital RandalliaPT panel Coag (PPP)on 82-19-7663IUF Coag (PPP) [Relative time]1.0 {INR}Normal0.9-1.3[facility] HospitalComment on above:Order Comment: Specimen Type: BLOOD SPECIMEN Ordering Facility: [facility] Address: [address] [place], [place] [address]Mqntcn Comment: Vitamin K Antagonist (VKA) Therapeutic Range: INR 2 to 3 (Target INR of 2.5) Note: For patients treated with VKA drugs, such as warfarin, the [employer] 2012 Guideline recommends [...] Es GH, et al. Chest 2012, 141:7S-47S Jaems RA, et al. [facility] 2017, 70: 252-289Performed By: #### 36076-1, 35850-3 #### [facility] CLIA [id number] [facility] [place] [address] [facility] MEDICAL CENTERPT Coag (PPP) [Time]10.9 sNormal9.7-13.0 [place] HospitalComment on above:Order Comment: Specimen Type: BLOOD SPECIMEN Ordering Facility: [facility] Address: [address] [place], [place] [address]Gsawloxyi By: #### 19303-8, 26067-0 #### [facility] CLIA [id number] [address] [place] [address] [place] AMERICAUrinalysis complete panel (U)on 00-11-8729Yhhbygtbb Ql (U)NegativeNormalNegativeAvon HospitalComment on above: Order Comment: Specimen Type: URINE SPECIMEN Ordering Facility: [facility] Address: [address] [place], [place] [address]Performed By: #### 59810-3 #### [facility] CLIA [id number] [address] [place] [address] [place] AMERICAClarity (Unsp spec)ClearNormalClearAvon HospitalComment on above:Order Comment: Specimen Type: URINE SPECIMEN Ordering Facility: [facility] Address: [address] [place], [place] [address]Performed By: #### 70802-2 #### [facility] IA [id number] [address] [place] [address] [place] AMERICAColor (U)Light YellowNormalyellowAvon HospitalComment on above:Order Comment: Specimen Type: URINE SPECIMEN Ordering Facility: [facility] Address: [address] [place], [place] [address]Performed By: #### 58603-0 #### [facility] IA [id number] [address] [place] [address] [place] AMERICAEpithelial cells LM.HPF (Urine sed) [#/Area]FewNormalAvon HospitalComment on above:Order Comment: Specimen Type: URINE SPECIMEN Ordering Facility: [facility] Address: [address] [place], [place] [address]Performed By: #### 97347-3 #### [facility] IA [id number] [address] [place] [address] [place] AMERICAGlucose Test strip (U) [Mass/Vol]Negative NormalTrace, NegativeAvon HospitalComment on above:Order Comment: Specimen Type: URINE SPECIMEN Ordering Facility: [facility] Address: [address] [place], [place] [address]Performed By: #### 14213-2 #### [facility] IA [id number] [address] [place] [address] [place] AMERICAHemoglobin Ql (U)TraceNormalNegative, TraceAvon HospitalComment on above:Order Comment: Specimen Type: URINE SPECIMEN Ordering Facility: [facility] Address: [address] [place], [place] [address]Performed By: #### 40650-2 #### [facility] IA [id number] [address] [place] [address] [place] AMERICAKetones Ql (U)NegativeNormalNegative, TraceAv HospitalComment on above:Order Comment: Specimen Type: URINE SPECIMEN Ordering Facility: [facility] Address: [address] [place], [place] [address]Performed By: #### 70603-1 #### [facility] IA [id number] [address] [place] [address] [place] AMERICALeukocyte esterase Test strip Ql (U)75 Red/uLAbnormalNegative, 25 Red/uLAvon HospitalComment on above:Order Comment: Specimen Type: URINE SPECIMEN Ordering Facility: [facility] Address: [address] [place], [place] [address]Performed By: #### 93084-4 #### [facility] [id number] [place] [address] [place] AMERICANitrite Ql (U)NegativeNormalNegativeWhitesburg HospitalComment on above:Order Comment: Specimen Type: URINE SPECIMEN Ordering Facility: [facility] Address: [address] [place], [place] [address]Performed By: #### 12634-5 #### [facility] IA [id number] [address] [place] [address] [place] AMERICApH (U)6.5 [pH]Normal5.0-8.0[facility] Comment on above:Order Comment: Specimen Type: URINE SPECIMEN Ordering Facility: [facility] Address: [address] [place], [place] [address]Performed By: #### 38290-6 #### [facility] IA [id number] [address] [place] [address] [place] AMERICAProtein (U) [Mass/Vol]2+AbnormalTrace, NegativeAvon HospitalComment on above:Order Comment: Specimen Type: URINE SPECIMEN Ordering Facility: [facility] Address: [address] [place], [place] [address]Performed By: #### 27459-2 #### [facility] IA [id number] [place] [address] [place] HENRY COUNTY HOSPITALRBC LM.HPF (Urine sed) [#/Area]6-10 /HPF Abnormal0-3 /HPFAv HospitalComment on above:Order Comment: Specimen Type: URINE SPECIMEN Ordering Facility: [facility] Address: [address] [place], [place] [address]Performed By: #### 31963-3 #### [facility] [id number] [address] [place] [address] [place] [facility] COUNTY HOSPITALSpecific gravity (U) [Rel density]1.017 Normal1.005-1.030Av HospitalComment on above:Order Comment: Specimen Type: URINE SPECIMEN Ordering Facility: [facility] Address: [address] [place], [place] [address]Performed By: #### 31539-6 #### [facility] IA [id number] [address] [place] [address] [facility] MEDICAL CENTERUrobilinogen Ql (U)NormalNormalNormalAvon HospitalComment on above:Order Comment: Specimen Type: URINE SPECIMEN Ordering Facility: [facility] Address: [address] [place], [place] [address]Performed By: #### 91297-7 #### [facility] IA [id number] [address] [place] [address] [place] HENRY COUNTY HOSPITALWBC LM.HPF (Urine sed) [#/Area]11-25 /HPF Abnormal0-5 /HPFAv HospitalComment on above:Order Comment: Specimen Type: URINE SPECIMEN Ordering Facility: [facility] Address: [address] [place], [place] [address]Performed By: #### 85845-3 #### [facility] CLIA [id number] [facility] [place] [address] [place] AMERICAaPTT PPPon 64-77-1221qKJZ Coag (PPP) [Time]29.5 xGnrzzq32.0-32.4Avon HospitalComment on above:Order Comment: Specimen Type: BLOOD SPECIMEN Ordering Facility: [facility] Address: [address] [place] [place], [place] [address]Performed By: #### 99798-0, 43301-9 #### [facility] CLIA [id number] [address] [facility] [facility] [place] [address] [facility] CENTERCT ABD/PEL W IVCONon [id number] ABD/PEL W IVCOhioHealth Van Wert HospitalCT CHEST W IVCONon [id number] CHEST W IVCOhioHealth Van Wert HospitalCNPNon [id number] Clinic ClevelandCBC W Auto Differential panel (Bld)on 40-09-8021Cvpzccruf (Bld) [#/Vol]0.04 10*3/uLNIMercy Health St. Vincent Medical CenterBasophils/100 WBC (Bld)0.6 %[facility] ToledoDifferential cell count method Nom (Bld)AutoCleveland ClinicEosinophils (Bld) [#/Vol]0.17 10*3/uLNINFRegency Hospital ToledoEosinophils/100 WBC (Bld)2.5 % [facility] ToledoErythrocyte distribution width (RBC) [Ratio]14.8 %11.5 - 15.0 % [facility] ToledoHematocrit (Bld) [Volume fraction]37.6 %Low39.0 - 51.0 % [facility] ToledoHemoglobin (Bld) [Mass/Vol]11.8 g/dLLow13.0 - 17.0 g/dLRegency Hospital ToledoImmature granulocytes (Bld) [#/Vol]0.06 10*3/uLNINFRegency Hospital Toledo Immature granulocytes/100 WBC (Bld)0.9 %[facility] ToledoInterpretation and review of laboratory resultsAbnormalCleveland ClinicLymphocytes (Bld) [#/Vol] 1.35 10*3/uLRegency Hospital ToledoLymphocytes/100 WBC (Bld)19.8 %[facility] Bing, MD, Cancer CenterH (RBC) [Entitic mass]28.3 pg26.0 - 34.0 pgCMercy Health Lorain HospitalHC (RBC) [Mass/Vol] 31.4 g/dL30.5 - 36.0 g/dLOhioHealth Arthur G.H. Bing, MD, Cancer CenterV (RBC) [Entitic vol]90.2 fL80.0 - 100.0 fLCmercy health lorain hospital ClinicMonocytes (Bld) [#/Vol]0.62 10*3/uLNINFRegency Hospital Toledo Monocytes/100 WBC (Bld)9.1 %[facility] Hospital ToledoNeutrophils (Bld) [#/Vol]4.59 10*3/uLRegency Hospital ToledoNeutrophils/100 WBC (Bld)67.1 %[facility] ToledoNucleated RBC (Bld) [#/Vol]NINFClevelUniversity Hospitals Portage Medical CenterNucleated RBC/100 WBC (Bld) [Ratio]0.0 % /100 WBCRegency Hospital ToledoPlatelet mean volume (Bld) [Entitic vol]9.5 fL9.0 - 12.7 fLCmercy health lorain hospital ClinicPlatelets (Bld) [#/Vol]226 10*3/uLRegency Hospital ToledoRBC (Bld) [#/Vol]4.17 10*6/uLLow4.20 - 6.00 m/[facility] Memorial HospitalWBC (Bld) [#/Vol]6.83 10*3/uLWadsworth-Rittman HospitalBasophils (Bld) [#/Vol]0.04 10*3/uLNormal <0.11CSt. Vincent Hospital on above:Order Comment: Specimen Type: BLOOD SPECIMENOrdering Facility: [facility] Address:[address] [place], [place] [address]Kcclsaizi By: #### 36823-8 ####[facility] LABIA [id number] [place] [address] Basophils/100 WBC (Bld)0.6 %NormalKettering Health Behavioral Medical Center on above: Order Comment: Specimen Type: BLOOD SPECIMENOrdering Facility: [facility] Address:[address] [place], [place] [address]Performed By: #### 78344- 8 ####[facility] LABCLIA [id number] [place], [place] [address]Oqjpenfcbmbx cell count method Nom (Bld)AutoNormal [facility] on above:Order Comment: Specimen Type: BLOOD SPECIMENOrdering Facility: [facility] Address:[address] [place], [place] [address]Performed By: #### 76645-0 ####[facility] LABCLIA [id number] [place], [place] [address]Erwidbsqutu (Bld) [#/Vol]0.17 10*3/uLNormal<0.46[facility] on above: Order Comment: Specimen Type: BLOOD SPECIMENOrdering Facility: [facility] Address:[address] [place], [place] [address]Performed By: #### 06206- 8 ####[facility] LABIA [id number] [place], [place] [address]Qwwcoozjvrx/100 WBC (Bld)2.5 %NormalKettering Health Behavioral Medical Center on above:Order Comment: Specimen Type: BLOOD SPECIMENOrdering Facility: [facility] Address:[address] [place], [place] [address]Performed By: #### 16728-0 ####[facility] LABIA [id number] [place], [place] [address]Phcluwvcacw distribution width (RBC) [Ratio]14.8 %Rphsyb67.5-15.0[facility] on above: Order Comment: Specimen Type: BLOOD SPECIMENOrdering Facility: [facility] Address:[address] [place], [place] [address]Performed By: #### 31371- 8 ####[facility] LABIA [id number] [place], [place] [address]Laletkrlwb (Bld) [Volume fraction]37.6 %Low39.0-51.0 [facility] on above:Order Comment: Specimen Type: BLOOD SPECIMENOrdering Facility: [facility] Address:[address] [place], [place] [address]Performed By: #### 02511-0 ####[facility] LABIA [id number] [place], [place] [address]Mtxpuoohif (Bld) [Mass/Vol]11.8 g/dLLow13.0-17.0[facility] on above:Order Comment: Specimen Type: BLOOD SPECIMENOrdering Facility: [facility] Address:[address] [place], [place] [address]Performed By: #### 59666- 8 ####[facility] LABIA [id number] [place], [place] [address]Wiqcxsgi granulocytes (Bld) [#/Vol]0.06 10*3/uLNormal <0.10[facility] on above:Order Comment: Specimen Type: BLOOD SPECIMENOrdering Facility: [facility] Address:[address] [place], [place] [address]Performed By: #### 03521-5 ####[facility] LABIA [id number] [place], [place] [address]Ilhtocga granulocytes/100 WBC (Bld)0.9 %NormalKettering Health Behavioral Medical Center on above: Order Comment: Specimen Type: BLOOD SPECIMENOrdering Facility: [facility] Address:[address] [place], [place] [address]Performed By: #### 17052- 8 ####[facility] LABIA [id number] [place], [place] [address]Bffkvltrapv (Bld) [#/Vol]1.35 10*3/uLNormal1.00-4.00 [facility] on above:Order Comment: Specimen Type: BLOOD SPECIMENOrdering Facility: [facility] Address:[address] [place], [place] [address]Performed By: #### 84227-9 ####[facility] LABCLIA [id number] [place], [place] [address]Pjrkvytitwg/100 WBC (Bld)19.8 %NormalKettering Health Behavioral Medical Center on above:Order Comment: Specimen Type: BLOOD SPECIMENOrdering Facility: [facility] Address:[address] [place], [place] [address]Performed By: #### [id number] ####[facility] LABCLIA [id number] [place], [place] [address]VSL (RBC) [Entitic mass]28.3 twCsnomd42.0-34.0[facility] on above:Order Comment: Specimen Type: BLOOD SPECIMENOrdering Facility: [facility] Address:[address] [place], [place] [address]Performed By: #### [id number] ####[facility] LABIA [id number] [place], [place] [address]PADD (RBC) [Mass/Vol]31.4 g/xYBbxbdl24.5-36.0[facility] on above: Order Comment: Specimen Type: BLOOD SPECIMENOrdering Facility: [facility] Address:[address] [place], [place] [address]Performed By: #### [id number]- 8 ####[facility] LABCLIA [id number] [place], [place] [address]UMT (RBC) [Entitic vol]90.2 iJYvdwzm04.0-100.0[facility] on above:Order Comment: Specimen Type: BLOOD SPECIMENOrdering Facility: [facility] Address:[address] [place], [place] [address]Performed By: #### [id number] ####[facility] [facility] LABIA [id number] [place], [place] [address]Jzausfabu (Bld) [#/Vol]0.62 10*3/uLNormal<0.87[facility] on above:Order Comment: Specimen Type: BLOOD SPECIMENOrdering Facility: [facility] Address:[address] [place], [place] [address]Performed By: #### 88397- 8 ####[facility] LABCLIA [id number] [place], [place] [address]Asbcwdnbf/100 WBC (Bld)9.1 %NormalKettering Health Behavioral Medical Center on above:Order Comment: Specimen Type: BLOOD SPECIMENOrdering Facility: [facility] Address:[address] [place], [place] [address]Performed By: #### 79263-8 ####[facility] LABCLIA [id number] [place], [place] [address]Thjqbrunmrn (Bld) [#/Vol]4.59 10*3/uLNormal1.45-7.50[facility] on above:Order Comment: Specimen Type: BLOOD SPECIMENOrdering Facility: [facility] Address:[address] [place], [place] [address]Performed By: #### 71091-1 ####[facility] LABCLIA [id number] [place], [place] [address]Rqkhyupnqls/100 WBC (Bld)67.1 %NormalKettering Health Behavioral Medical Center on above:Order Comment: Specimen Type: BLOOD SPECIMENOrdering Facility: [facility] Address:[address] [place], [place] [address]Performed By: #### 20254-0 ####[facility] LABIA [id number] [place], [place] [address]Mdsaezrli RBC (Bld) [#/Vol] 10*3/uLNormal<0.01[facility] on above:Order Comment: Specimen Type: BLOOD SPECIMENOrdering Facility: [facility] Address:[address] [place], [place] [address]Performed By: #### 28324-2 ####[facility] LABCLIA [id number] [place], [place] [address]Kzdrwxurx RBC/100 WBC (Bld) [Ratio]0.0 /100 WBCNormal [facility] on above:Order Comment: Specimen Type: BLOOD SPECIMENOrdering Facility: [facility] Address:[address] [place], [place] [address]Performed By: #### 99673-5 ####[facility] LABCLIA [id number] [place], [place] [address]Dyfzvauh mean volume (Bld) [Entitic vol]9.5 fLNormal9.0-12.7CSt. [facility] on above:Order Comment: Specimen Type: BLOOD SPECIMENOrdering Facility: [facility] Address:[address] [place] [address] Performed By: #### 56105-1 ####[facility] LABCLIA [id number] [place], [place] [address]Tinfwnsbg (Bld) [#/Vol]226 10*3/zKYdwhpy689-867AdbayquewKettering Health Behavioral Medical Center on above:Order Comment: Specimen Type: BLOOD SPECIMENOrdering Facility: [facility] Address:[address] [place], [place] [address]Performed By: #### 38290-1 ####[facility] LABCLIA [id number] [place], [place] [address]PVZ (Bld) [#/Vol]4.17 10*6/uLLow4.20-6.00[facility] on above:Order Comment: Specimen Type: BLOOD SPECIMENOrdering Facility: [facility] Address:[address] [place], [place] [address]Performed By: #### 05721-6 ####[facility] LABCLIA [id number] [place], [place] [address]JZJ (Bld) [#/Vol]6.83 10*3/uL Normal3.70-11.00[facility] on above:Order Comment: Specimen Type: BLOOD SPECIMENOrdering Facility: [facility] Address:[address] [place], [place] [address]Performed By: #### 07325-6 ####[facility] LABCLIA [id number] [place], [place] [address]YDV SerPl-mCncon 92-71-5496Owcjqzkjiwewerkc Ag [Mass/Vol] 2.3 ng/mLNormal<=2.9CSt. [facility] on above:Order Comment: Specimen Type: BLOOD SPECIMENOrdering Facility: [facility] Address:[address] [place], [place] [address]Result Comment: Carcinoembryonic antigen test is used as an aid in monitoring response to treatmentor recurrence in patients with established colorectal, breast, lung, prostatic, pancreatic, and ovarian carcinomas. Clinical correlation is required.The Carcinoembryonic antigen test was performed using the [employer] Un[employer] DXI paramagnetic particle chemiluminescent immunoassay method. Results obtained with different assay methods or kits cannot be used interchangeably.Performed By: #### 2039-6 ####[facility] LABCLIA [id number] [place] [address] [place] OF AMERICACNOVon 08-65-1765BIGGAgkqyb [facility]-FairhillCNOVSPon 09-73-6801SEHJCGJsrbmgPyktpqvvf Randolph HealthCNPNon 06-28-6201CSFIWjdatiJrizpbtjk Clinic ClevelandComprehensive metabolic 2000 panelOrdered By: Jeffrey Hartman on 21-82-0168Jkhlnbf [Mass/Vol]4.2 g/dL3.9 - 4.9 g/dLStella ClinicALP [Catalytic activity/Vol]57 U/L38 - 113 U/L Stella ClinicALT [Catalytic activity/Vol]7 U/LLow10 - 54 U/LCchildren's hospital for rehabilitationand Clinic Anion gap [Moles/Vol]11 mmol/L8 - 15 mmol/LCleveland ClinicAST [Catalytic activity/Vol]12 U/LLow14 - 40 U/LCleveland ClinicBilirubin [Mass/Vol]0.6 mg/dL 0.2 - 1.3 mg/dLClefirelands regional medical center south campus ClinicCalcium [Mass/Vol]9.5 mg/dL8.5 - 10.2 mg/dL Hendrix ClinicChloride [Moles/Vol]102 mmol/L98 - 107 mmol/LCleveland ClinicCO2 [Moles/Vol]25 mmol/L22 - 30 mmol/LCleveland ClinicCreatinine [Mass/Vol]1.29 mg/dLHigh0.73 - 1.22 mg/dLCleveland ClinicGFR/1.73 sq M.predicted among non- blacks MDRD (S/P/Bld) [Vol rate/Area]57 mL/min/{1.73_m2}Low- PINFCleveland ClinicComment on above:Estimated Glomerular Filtration Rate (eGFR) is calculated using the 2020 CKD-EPI creatinine equation. This equation utilizes serum creatinine, sex, and age as parameters. The creatinine assay has traceable calibration to isotope dilution-mass spectrometry. Refer to KDIGO guidelines for clinical interpretation. In patients with unstable renal function, e.g. those with acute kidney injury, the eGFRmay not accurately reflect actual GFR.Glucose [Mass/Vol]95 mg/dL74 - 99 mg/dLRegency Hospital ToledoComment on above:The [place] Diabetes Association (ADA) provides guidance for cutoff values for fasting glucose andrandom glucose. The ADA defines fasting as no [...] Standards of Medical Care in Diabetes 2016, [place] Diabetes Association. Diabetes Care. 2016.39(Suppl 1). Interpretation and review of laboratory resultsAbnormalCleveland ClinicPotassium [Moles/Vol]5.2 mmol/LHigh3.7 - 5.1 mmol/LCleveland ClinicProtein [Mass/Vol]6.7 g/dL6.3 - 8.0 g/dLCleveland ClinicSodium [Moles/Vol]138 mmol/L136 - 144 mmol/L [facility] nitrogen [Mass/Vol]18 mg/dL9 - 24 mg/dLDayton Children'S HospitalComprehensive metabolic 2000 panelon 86-05-6255Fqvwofj [Mass/Vol]4.2 g/dLNormal3.9-4.9CSt. [facility] on above:Order Comment: Specimen Type: BLOOD SPECIMENOrdering Facility: [facility] Address:[address] [place], [place] [address]Performed By: #### 43900- 8 ####[facility] LABCLIA [id number] [facility] [place], [place] [address]FKQ [Catalytic activity/Vol]57 U/UEdlguc06-352LvgwtvzmtKettering Health Behavioral Medical Center on above:Order Comment: Specimen Type: BLOOD SPECIMENOrdering Facility: [facility] Address:[address] [place], [place] [address]Performed By: #### 32845-2 ####[facility] LABCLIA [id number] [place], [place] [address]RPU [Catalytic activity/Vol]7 U/NQoz06-99QkzkdyhjuKettering Health Behavioral Medical Center on above:Order Comment: Specimen Type: BLOOD SPECIMENOrdering Facility: [facility] Address:[address] [place], [place] [address]Performed By: #### 97920- 8 ####[facility] LABCLIA [id number] [place], [place] [address]Pqocv gap [Moles/Vol]11 mmol/LNormal8-15[facility] on above:Order Comment: Specimen Type: BLOOD SPECIMENOrdering Facility: [facility] Address:[address] [place], [place] [address]Performed By: #### 24152-9 ####[facility] LABIA [id number] [place], [place] [address]UKM [Catalytic activity/Vol]12 U/BVal83-96OhomjlarwKettering Health Behavioral Medical Center on above:Order Comment: Specimen Type: BLOOD SPECIMENOrdering Facility: [facility] Address:[address] [place], [place] [address]Performed By: #### 49306-1 ####[facility] LABCLIA [id number] [place] [address] Bilirubin [Mass/Vol]0.6 mg/dLNormal0.2-1.3CSt. [facility] on above:Order Comment: Specimen Type: BLOOD SPECIMENOrdering Facility: [facility] Address:[address] [place], [place] [address]Performed By: #### 84988-9 ####[facility] LABCLIA [id number] [place], [place] [address]Illtzdb [Mass/Vol]9.5 mg/dLNormal8.5-10.2CSt. [facility] on above:Order Comment: Specimen Type: BLOOD SPECIMENOrdering Facility: [facility] Address:[address] [place], [place] [address]Performed By: #### 34174-9 ####[facility] LABCLIA [id number] [place], [place] [address]Immqzgpj [Moles/Vol]102 mmol/ZCnhwoi21-025GgalkvtkpKettering Health Behavioral Medical Center on above: Order Comment: Specimen Type: BLOOD SPECIMENOrdering Facility: [facility] Address:[address] [place], [place] [address]Performed By: #### 63114- 8 ####[facility] LABCLIA [id number] [facility] [place], [place] [address]WA2 [Moles/Vol]25 mmol/BRsgegy71-80LmcmjmxmeKettering Health Behavioral Medical Center on above:Order Comment: Specimen Type: BLOOD SPECIMENOrdering Facility: [facility] Address:[address] [place], [place] [address]Performed By: #### 85121-8 ####[facility] LABCLIA [id number] [place], [place] [address]Hnugqyvzpn [Mass/Vol]1.29 mg/dL High0.73-1.22[facility] on above:Order Comment: Specimen Type: BLOOD SPECIMENOrdering Facility: [facility] Address:[address] [place] [address]Gfzofyndj By: #### 41840-0 ####[facility] LABCLIA [id number] [place] [address] Creatinine and Glomerular filtration rate.predicted panel (S/P/Bld)57 mL/min/1.73m???Low>=60[facility] on above:Order Comment: Specimen Type: BLOOD SPECIMENOrdering Facility: [facility] Address:[address] [place], [place] [address]Result Comment: Estimated Glomerular Filtration Rate (eGFR) is calculated using the 2020 CKD-EPI creatinine equation. This equation utilizes serum creatinine, sex, and age as parameters. The creatinine assay has traceable calibration to isotope dilution-mass spectrometry. Refer to KDIGO guidelines for clinical interpretation. In patients with unstable renal function, e.g. those with acute kidney injury, the eGFR may not accurately reflect actual GFR.Performed By: #### 17814-3 ####[facility] LABCLIA [id number] [place] [address] Glucose [Mass/Vol]95 mg/hNMxgqvp73-62BcspfwgwcKettering Health [facility]al Medical Center on above: Order Comment: Specimen Type: BLOOD SPECIMENOrdering Facility: [facility] Address:[address] [place] [address]Lqnpmq Comment: The [place] Diabetes Association (ADA) provides guidance for cutoff values for fast ing glucose and random glucose. The ADA defines fasting as no caloric intake for at least 8 hours. Fasting plasma glucose results between 100 to 125 mg/dL indicate increased risk for diabetes (prediabetes).Fasting plasma glucose results greater than or equal to 126 mg/dL meet the criteria for diagnosis of diabetes. In the absence of unequivocal hyperglycemia, results should be confirmed by repeattesting. In a patient with classic symptoms of hyperglycemia or hyperglycemic crisis, random plasmaglucose results greater than or equal to 200 mg/dL meet the criteria for diagnosis of diabetes.Reference: Standards of Medical Care in Diabetes 2016, [place] Diabetes Association. Diabetes Care. 2016.39(Suppl 1).Performed By: #### 12877-1 ####[facility] LABCLIA [id number] [place], [place] [address]Dztxwakji [Moles/Vol]5.2 mmol/LHigh3.7-5.1CSt. [facility] on above:Order Comment: Specimen Type: BLOOD SPECIMENOrdering Facility: [facility] Address:[address] [place], [place] [address]Performed By: #### 77310- 8 ####[facility] LABCLIA [id number] [place], [place] [address]Lktphnw [Mass/Vol]6.7 g/dLNormal6.3-8.0[facility] on above:Order Comment: Specimen Type: BLOOD SPECIMENOrdering Facility: [facility] Address:[address] [place], [place] [address]Performed By: #### 84726-0 ####[facility] LABCLIA [id number] [place], [place] [address]Ichlvp [Moles/Vol]138 mmol/L Ballvb480-196GyanslnjtKettering Health Behavioral Medical Center on above:Order Comment: Specimen Type: BLOOD SPECIMENOrdering Facility: [facility] Address:[address] [place], [place] [address]Performed By: #### 66806-7 ####[facility] LABCLIA [id number] [place] [address] Urea nitrogen [Mass/Vol]18 mg/dLNormal9-24[facility] on above:Order Comment: Specimen Type: BLOOD SPECIMENOrdering Facility: [facility] Address:[address] [place], [place] [address]Performed By: #### 02684-2 ####[facility] LABCLIA [id number] [place], [place] [address]Lhespxwm SerPl-mCncon 07-86-3658Spfobaeu [Mass/Vol] 136.0 ng/gWFqhhcy38.3-565.7CSt. [facility] on above:Order Comment: Specimen Type: BLOOD SPECIMENOrdering Facility: [facility] Address:[address] [place], [place] [address]Performed By: #### 2284- 8, 28741-0, 6-4, 9 ####[facility] LABCLIA [id number] [place] [address] [place] OF AMERICAFolate SerPl-mCncon 10-26-3218Mdmfgx [Mass/Vol]11.8 ng/mLNormal>4.7CSt. [facility] Hospital on above:Order Comment: Specimen Type: BLOOD SPECIMENOrdering Facility: [facility] Address:[address] [place], [place] [address]Performed By: #### 2284-8, 42209-0, 6-4, 2132-07 ####[facility] LABIA [id number] [place] [address] [place] AMERICAIron and Iron binding capacity panelon 44-79-0901Mtfy [Mass/Vol]43 ug/bKShdkay57-498KdxqjdwfdSelect Medical Specialty Hospital - Cleveland-FairhillComselect specialty hospital-[facility]int on above:Order Comment: Specimen Type: BLOOD SPECIMENOrdering Facility: [facility] Address:[address] [place], [place] [address]Performed By: #### 2284- 8, 43279-6, 6-4, 2132-07 ####[facility] LABCLIA [id number] [place] [address] [place] AMERICAIron binding capacity [Mass/Vol]324 ug/tLYjdvcm144-086AvypafnvvSelect Medical Specialty Hospital [facility] [place]-Fairhill Comment on above:Order Comment: Specimen Type: BLOOD SPECIMENOrdering Facility: [facility] Address:[address] [place] [address] Performed By: #### 2284-8, 19591-6, 2276-02, 2132-07 ####[facility] LABCLIA [id number] [place] [address] [place] AMERICAIron/TIBC [Molar ratio]13.3 %Low15.0-57.0[facility] on above:Order Comment: Specimen Type: BLOOD SPECIMENOrdering Facility: [facility] Address:[address] [place], [place] [address]Performed By: #### 2284-8, 28123-9, 2276-02, 2132-07 ####[facility] LABCLIA [id number] [place] [address] [place] AMERICAPSA SerPl-mCncon 91-99-3899Mnnjesdy specific Ag [Mass/Vol]ng/mLNormal<2.60[facility] on above:Order Comment: Specimen Type: BLOOD SPECIMENOrdering Facility: [facility] Address:[address] [place], [place] [address]Result Comment: Total PSA test methodology used is the Electrochemiluminescence Immunoassay by [employer]. Total PSA values by differing methodologies cannot be interchanged. Performed By: #### 2857-1 ####[facility] LABCLIA [id number] [place] [address] [place] Vit B12 SerPl-mCncon 60-78-2132Pvchirkfb (Vitamin B12) [Mass/Vol]593 pg/mLNormal 232-1245CSt. [facility] on above:Order Comment: Specimen Type: BLOOD SPECIMENOrdering Facility: [facility] Address:[address] [place], [place] [address]Performed By: #### 2284-8, 61557-3, 2276-02, ####[facility] LABCLIA [id number] [place] [address] [place] AMERICACNPNon 64-08-4958HFYRJkmljy [facility] Cleveland-FairhillDPYD/UGT1A1 GENOTYPING PANELon 50-64-7398VTYZ/UGT1A1 GENOTYPING PANEL RESULPharmacogenomics (PGx) DPYD and UGT1A1 Genotyping Laboratory Accession Number: [id number] DPYD Genotype: *1/*1 DPYD Activity Score: 2 [...] molecular testing details should be directed to [employer] . One decreased function UGT1A1 allele, in [...] molecular testing details should be directed to [employer] . The DPYD gene encodes dihydropyrimidine dehydrogenase [...] Variant Details: NA UGT1A1 Variant Details: UGT1A1 [id number], c.-346C>T, g.[id number]>T; (legacy name 80), UGT1A1 [id number], c.-41_-40dupTA g.[id number]; (legacy name 28) DPYD Additional Information: In addition to increased risk of 5-fluorouracil toxicity, variants in the DPYD gene may be associated with DPD deficiency, an autosomal recessive inborn error of metabolism (OMIM: 263081). DPD deficiency exhibits a wide range of [...] list below) in the DPYD gene (OMIM 177488) and UGT1A1 gene (OMIM 752764). This test does not detect all sequence [...] genome used is GRCh38/hg38 (more content not included)...[facility] Children'S HospitalCNPNon 28-19-4458DYREVvxpqbOsegcmoby Clinic ClevelandCYTOLOGY NON-GYNOrdered By: Lizzette Ayers on 56-19-8553Akrm ReportMedical Cytology Report Case: [id number] Authorizing Provider: Elliott Sanchez MD Collected: 07/22/2024 10:17 AM Ordering Location: Urology Received: 07/22/2024 04:10 PM Pathologist: Lizzette Ayers MD Specimen: Urine, Voided [facility] Work Phone: Clinical History k9ddfDMeYIPnj3dtLUHqfMQhTqXiDhOaNsVpIxi4UAYaqmD0Qae4KDRkXXameN5jXPJiVRtoC5ixfzOb xSCxRFFmFLk3rH5woXfpiH2nAeLtJuAvXBJwU3FyRC8ustgaUi6tAHfnrzw6e7UnlF6zhwlyaEEwGR8= [facility] Work Phone: FINAL DIAGNOSIS y3ifgDHeBJYntXCyFTicQgptamHhPUItdJCiS3BlyzgiHHmbLF3eUP0glWvghOYjoQDhAJWhVfWxp4mr o826kAHdf9rmZWCZrszs qTr5oTrsX61zk8U4MlvwK3wuIFXsHTjwOEAnUObdxXFqYNdqscKeGFnxhmUdzyBqVdm6RSH9QSw9MOOg cGVydzEyMjQwXHBhcGVy lKL3GSYiRV9wexpeJlMaDC8nrspiCpMrTY7slwn0AfBgDY3pnhreGsPvVLtdQXSutjs7RcWcFl9waOVg yZrlZGybX1iylC7sGvH7 BEhsK3jlsI0nONq2ECqhJVOtqUZ7obxbBHpgJVYmvbU4dcljOZjhPQWpyFJ5djyaGIhfSLVrXvY2lxaw MFxwYXJkXHBsYWluXGJc HuJwLdodWaPvHOKvKVVpjY1kCFADy2hiIAUtYBXdvjQvCYFtAYXmANAbRWH0rElcRWgklOXqqPtuzMfh fFUmADoajsQ5cYRtRB2x ywnaFSMoTYmizqFcQXJrupZfJ2brutwzzqumoi82NE32mQVav0cgOXSkbAMank3ynJquWlaqXWNfPDSx ICAgICAgIFxwYXIgICAg PZJwbBSvWLAuSAs8HLOsAYSmRUWeMGImuzxgGPVcD8ZaFCTayfwwHTlgBiDamLIjjY==[facility] Work Phone: Gross Description e2hrgJOrMYUmyIWSFLB0NUCsAE9bdGnwxCt8tPjtEVPrzqS5qBHmELwwm5gbDNM8a6iooxJZTfuhEEEa NA7uCOhyMFCnXF5jAvCc XXUwFoXrKYNaiYRwpfYhJiViXUAglSDseIS0INPmMU8qcmpcYBodEGbfQJRgodX1JEMiqLOdJ3SaUPJv KU6fmaeeATR7QNQRJhfv Pv2nnLPreFkyXyXtZyOoXLDpBHTmKKBzn4cccxSBfjetsUm7iQ5EIYLrU8VoCX8Rh0hkRFXiwDCcIME2 GKrdg3bwESthDFM1TSVz BFKtCPZbOL7VUvCvTYwlGFH6OucxNaH6NEt9DFUFFMDnOND5OdfyRGMkARp9OGmkAHwrlIFhTCHhPOLl MAVbTZnmraF8p5ddUFEw oIAwTLH8FRlvh5lxOUjzFFU8HNXrSbBgLAMnCF2LDgQdGPwdZUW2JsktKvU2TLq9QQEOKmCyRtXxYQrn IAT5BKzrPHw7YGi0VEeQ QuSpRugoOmz2UBw2HRT5RRXhYuYrQHQnKgSmFFEpRHVnQNlxyAZgPT3rrAtkKBSmUX3VIWFqBLfvPMIv EnTpWC2bAETyxlYmBSCf oVSeVTdpwVZtsTyiBSZaLPqvcGWiDXJXBcaczBPkrkovhSVrrFpcxnHuOYJgeSEODYF1HY0pTGVOBynn jTTdVCTmt8PeJCmlzWue CGRbLaRqDPlqKaZfQGTpXNDzO3EiH9dvOHHhtNlloICagTSumP34RGXawWjyPAhoKOHqU77hi0TVz3Gu h8xpfIipl9RxrNRjXU05JLLbgOCpMKE5CT4ycSljGFYdNTyznXUjSZRNXqjzwePfMW9YeO== [facility] Work Phone: Performin Lab n8ikbTMyNOQga8wzABQxdLDlNkZrZlNcOjJdPhbriWGwGOcdyrKkONievlCrDGRuOdsbcgafMWYoFSC2 jsPpTCOyPMU3HUM0TnNz x4R0DRWsZpHiZDAxFZ4zcInzIGPyEE9jZHZjP3sutZ2ysnz4KfLkFLDqHfH9BDWgyhJ6Vgz8XOLxCEwu t2sxi5XbHITyLOi8oDap BtZxRTNcf4ctqsDoStFsWQXuZQWpWWZmqNZxF700m7ihm2ziwcYrbBH1OQCcKED9XWwzdpPpgtL4TJyh tZGlAjV0MCyximPzVTxy scHlioMvSio8SBHmB874XFK3jYyrg7jnPNS8SULrQKKbPdEkQh4pmALaB299JKXuRPKLXMMmiCr0QGXu zdUnlgOmoWNKs544V920 c0siXOSzagXidDsVdxarb6yjN849CORhhOAwurSaHkThQAMvsDWdkHH9BAMnTP2qecdcBScvSDfaSPKt hoP1XZMdhZVoP9UfLSGh HB2amuxyCNK1MGmbYQLvVLZ3MgTsLFEtn7Lxmte8UcFdhf2jbj93KWQ7e0DakDgnVUU2TOE0PcZbEq4b fRMdDRDzGE0rBuXlmBRk FLJeze99cCyvALpvqaWqzK0zIrSiHLQgaHAzLNWnDM6xgNBhQOPatW7fbksmTOBlQdNrpreyELPkdGop caNmWq8unNqmFGL1PAap W8wwiQ2rIvP9DGnpM3jgwR8gSFv6PQcslET8IBAfbG8tQF3vglxbn5zyDOfjLGjxYSVqicF5vyG3SSSe hNGiS8XbwP8cIRHgPS5j tfdwx9rqITW0ZJheANQcVUF0JnBuDLCxx2Zhvja4IzGmr9IviYOpJUcyF08mj171MISafbXhI3euoVVb blxwbGFpblxmMFxmczI0 JATzZYThXEfyWMVuBRLsWwOnlTMvGvFcUvAgfAhrbDrmWJtgTiBoIPKcIDzlM8baXdMaUxKwEuEQRVBx ceqvQNajE16zhA2eEW22 SOFduGXuyKAucK2ahD3hpTK1XSSzleAkpcutUbVzBTLph4OkUSQkMSBdS0gdeeRuSQ8hODEhvE9oAdqf OTUwMCBFdWNsaWQgQXZl WRREcOR1APnsshWoB9fuKHHsPQFaDPKCFVrQVfRrFgZnRnV4ZMf9UXYejr30m8wwlEAgRCTcxIRxHqHn QGTvOIBlh1wqLVEgsUVh YbUrAyDxUgVtZrcnpUQlIWVqGkPkg8jxa556uHRrx2kkNKGcHdF4dYEfAUGpgKOdK520TNOtGDurm7et b8UnOHRhbONdh0R3IAER mechrBt3kTtcD33ho5K6ZqsxN5arNZZjSLJoA2QtVH3gSWYmJau0BQD2FEM5UBIhXZRbB5IaSK8jGMOb sKQvEYs2o1mwsAofSHJg ANZ4n6qdZTwqxnMfEL6ctj6mrXs0q2kxuiGyBVEsVWOwsJAMIJKnZ1AwlBjzLu2wsZz5iRprHoznYTR5 Lnd7BB7bag31miy5cZbm ZEMxhsyuZjV1RCnrMPUwwrdnLKd7IZbqCXUefTF2OAAuiWHrP0CkFVqcDT3ibaj1ZDD0EZsxVHBaPwA2 NDBcaGVhZGVyeTcyMFxm o259BIY3EfZlQZ7fD3Vyf5K1aP7quPNdPUIvqLVkAqXxOYDgww8jxHDzJSahe8HhJGE9qhV8iKBbhAQf TPPfBQ18Kvfum5QyGzcy e9PnV02qfBL1ODpdo2mjYO9iLmH7teWbKTkcy6vdsI8xTtL0DTymUQ8kPX3sHDGgbX2dsmzsTQDkVnLq vevrZWEaoXrapkDiSt1q hQmbYWQ7TDyfJ5yerW3oSqS8XItqO0cnzC9zYIb3ZGfhoBO5NGMmmU4hKK9lqrhai5wpVUorDQxoEQNo zoV4vzIbEWPyfFWmF7Ky mG1pNCCgCO3rdznwf5juTKP8RLvgPHFoQWG7RhSgUFYbx8Svfma8ZxPyy5XykJDmBJhwZ04jt953AATq okKwC9hlzBSrkwzifWRc bvoqAUygnlM2APXsKNNzOZruNANjTNNzKqUqlPMyUvXiApKmjUsdoWlzLEgpEiUoUTEmTGyzN0bqUaHb IfOuWRECsBAmgl2cvDhc SXomhQDslIJnvGR8lQ0tUZEfrzMxdb2lTBFrfPPWdIU0JQlqzfXpE8qbfcaaVSH6KUFwZIJ6M7mnGCQR dmUsIENsZXZlbGFuZCBP XRE6JLZ0ZDGxUZOKRXNsCLY8STD8XOYxATSkkPLnWBMllxveGHDgCBNaPMecOITwNIBdTxFqaDfbkK0u HvCeWkEkHSalZV0xYWOd H5pcwVQiJWIfYXAcT4kaEbSkmX3prQrwRGmvOhTrGqSsIRtvhMNkvPFFYBBmbjX4g1V1WNwdxORqxcmg MVxmczIwXGxhbmcxMDMz CZkdH9csEeYzKZWrrYzlKEqwv0ZlQWLhXOVhPkTaQVehWRE9m0W7AWlvyGIakdELMxZWZW1tfVTwavpg OS8ENumfzIByvvgcLLwy naUdFNhghyhrHSWzUCbpQ3wyUsKkDIAblLeiBLbbt5HtOWDwJWTlPuIzeMBdmU9=[facility] Work Phone: [facility] Work Phone: Bacteria Ur Culton [id number] identified Cx Nom (U)ORGANISM ID: 1 <10,000 CFU/ml Normal urogenital floraNoWright-Patterson Medical Center on above:Performed By: #### [id number] ####[facility] [id number] [place] [address] [place] CNOVon [id number] Clinic ClevelandCNOVSPon [id number] NormalSelect Medical Specialty Hospital - Cleveland-FairhillCYTOLOGY NON-GYNon [id number] REPORTNormal [facility] on above:Order Comment: Specimen Type: URINE SPECIMENOrdering Facility: [facility] Address:[address] [place], [place] [address]Result Comment: Medical Cytology Report Case: [id number] Provider: Elliott Sanchez MD Collected: 07/22/2024 10:17 AMOrdering Location: Urology Received: 07/22/2024 04:10 PMPathologist: Lizzette Ayers MDSpecimen: Urine, VoidedPerformed By: #### CYTONON ####[facility] [id number] [place] [address] [place] AMERICACLINICAL HISTORYscreening for genitourinaryNormal [facility] on above:Order Comment: Specimen Type: URINE SPECIMENOrdering Facility: [facility] Address:[address] [place], [place] [address]Performed By: #### CYTONON ####[facility] [id number] [place] [address] [place] OF AMERICAFINAL DIAGNOSISNoWright-Patterson Medical Center on above:Order Comment: Specimen Type: URINE SPECIMENOrdering Facility: [facility] HOSPITAL Address:[address] [place], [place] [address]Result Comment: A - Urine, Voided Atypical urothelial cells with marked degenerative changes, not ot herwise diagnostic. Performed By: #### CYTONON ####[facility] LABCLIA [id number] [address] [address] [facility]ENTERFINAK PERFORMING LABNoSelect Medical Specialty Hospital - TrumbullComselect specialty hospital-flint on above: Order Comment: Specimen Type: URINE SPECIMENOrdering Facility: [facility] Address:[address] [place], [place] [address]Result Comment: Technical component, shirt presser screening performed at [facility], [address] [place], [place] [address] CLIA# [id number] interpretation performed at [facility], [address] [place] [address] CLIA# [id number] Director: Jeffrey Tolentino M.D.Performed By: #### CYTONON ####[facility] LABCLIA [id number] [address]ETGROSS DESCRIPTIONNoSelect Medical Specialty Hospital - Trumbull Comment on above:Order Comment: Specimen Type: URINE SPECIMENOrdering Facility: [facility] Address:[address] [place], [place] [address]Result Comment: A. Urine, Wowcph897 cc clear light yellow fluidPerformed By: #### CYTONON ####[facility] LABCLIA [id number] [place] [id number] [place] STATES OF AMERICADPYD/UGT1A1 GENOTYPING PANELon 25-00-3757RHTD/UGT1A1 GENOTYPING PANEL RESULTNoSelect Medical Specialty Hospital - TrumbullComselect specialty hospital-flint on above:Order Comment: Specimen Type: BLOOD SPECIMENOrdering Facility: [facility] Address:[address] [place], [place] [address]Result Comment: Pharmacogenomics (PGx) DPYD and UGT1A1 GenotypingLaboratory Accession Number: [id number] Genotype: *1/*1DPYD Activity Score: 2DPYD Predicted Phenotype: DPYD Normal KbbufhfakxqNHY8W3 Genotype: *1/*80+*68QZZ3Q0 Predicted Phenotype: UGT1A1 Intermediate MetabolizerInterpretation:Two normal function [...] isassociated with a UGT1A1 intermediate metabolizer phenotype. LKO8O8pdxkpalrojnz metabolizers are not expected to require (based onpharmacogenomic results alone) selective adjustment of the dose ofmedications metabolized by UGT. Please consult a clinical pharmacistfor more information regarding drug therapy. Questions regardingmolecular testing details should be directed .The DPYD gene encodes dihydropyrimidine dehydrogenase (DPD). Thisenzymeis involved in the metabolism of fluoropyrimidines. The EJH2K7lzbs encodes UDP-glucuronosyltransferase (UGT). UGT is involved in themetabolism of certain medications including ones used in oncology. Forclinical correlation, drug-specific guidelines are available toprovide phenotype assignment and therapeutic recommendations based onphenotype. Patients who carry genetic variants associated with alt eredmetabolism may be at risk for an adverse or poor response to drugsthat are predominantly metabolized by the associated enzyme (DPD orUGT). For patients with altered DPD and/or UGT activity, alternativepharmacological agents or dosing adjustments may be needed formedications metabolized by this enzyme to avoid an unexpected oradverse response.Please note that this DPYD genotyping test includesvariants that maynot have been assayed in a previous test performed elsewhere. If thereis discordance of phenotype results between laboratories, it is likelya function of the different variants assayed in each test. Themethodology section of the report (see below) lists the variantsinterrogated by this test.DPYD Variant Details:WQPLN6V3 Variant Details:UGT1A1 [id number], c.- 346C>T, g.085854700D>T; (legacy name 80), [id number], c.-41_-40dupTA g.[id number]; (legacy name 28)DPYD Additional Information:In addition to increased risk of 5-fluorouracil toxicity, variants intheDPYD gene may be associated with DPD deficiency, an autosomalrecessive inborn error of metabolism (OMIM: 987229). DPD deficiencyexhibits a wide range of phenotypic [...] list below) in the DPYD gene (OMIM 264572) gfvBMR2B0 gene (OMIM 437521). This test does not detect all sequencevariants [...] undetected geneticand/or non-genetic factors such as drug-drug i nteractions.Methodology:Purified genomic DNA was subjected to polymerase chain [...] orabsence of the following variants, RefSNP ID: [id number], [id number] (TA repeats), and [id number].DPYD star alleles and targeted variants:RefSNP ID Legacy Total Allele Highest Allele Name Frequency Frequency General Population (Population)No variantdetected *[id number] *2A 0.6% 2.4% (Eur F)cn0216326 *8 0.01% 0.03% (S )me6837684 *10 n/msu43012356 *12 0.0008% 0.003% (S )[id number] *13 0.03% 0.06% (Eur F)[id number] Y186C 0.2% 2.15% ()[id number] c.2846A>T 0.3% 0.5% (Eur NF)xb10321672 HapB3 1.4% 2.1 % (Eur NF)mc81764061 HapB3(c.1236G>A) 1.4% 2.1% (Eur NF)Population frequencies are from gnomAD and may be different inspecific ethnic groups. The allele frequency shown is the total allelefrequency in all populations. The highest allele frequency for asingle population is also noted (Eur F = Nigerian, Eur NF = non-Nigerian, S = South ). Note: [id number] (HapB3)and [id number] (c.1236G>A) arein linkage disequilibrium thus aretypically seen together.References:1) Clinical Pharmacogenetics Implementation Consortium (CPIC):www.CPICpgx.org2) Pharmacogene Variation Consortium (PharmVar): www.P harmVar.org3) Genome Aggregation Database V2.1.1 (OmateD), accessed November2021, https://gnomad.broadThe Kerneltitute.org4) Noe-Yong M, Angle EM, Bonifacio JM, et al. PharmacogenomicsKnowledge for Personalized Medicine Clinical Pharmacology andTherapeutics (2012) 92(4): 414-417.5) Paty U, Randa LM, Salvador SM, et al. Clinical PharmacogeneticsImplementation Consortium (CPIC) Guideline for DihydropyrimidineDehydrogenase Genotype and Fluoropyrimidine Dosin Update. ClinPharmacol Ther.2018;103(2):210-216.6) Marco Vasco, CLEAR Library of Medicine 2020. Dihydropyrimidinedehydrogenase deficiency, accessed 30 May 2021,https://medlineplus.gov/genetics/condition/dihydropyrimidine-dehydrogenase- deficiency/#resources7) Marguerite N, Malgorzata SHAW, Maddy RCM, Century City Hospitallean ABP. Purine andPyrimidine Metabolism: Pyrimidine Metabolism: DihydropyrimidineDehydrogenase. Jaylon and Mike's Principles and Practice of MedicalGenetics and Genomics: Metabolic Disorders, Seventh Edition. Edited byAbril Vo al, Elsevier. 2020. Sections 6.3.4 - 6.3.4.4https://hqa-xhyzqebhxdq-eyb.ccmain.sdi onet.org/#!/content/book/3-s2.0-J4668668229332305814?scrollTo=%66xy28203109) Jose RS, Cherri MH, Gwen CE, et al. Clinical PharmacogeneticsImplementation Consortium (CPIC) Guideline for UGT1A1 and AtazanavirPrescribing. Clinical Pharmacology and Therapeutics (2016) Apr;99(4):363-9.9) King Tg, Nathalie GODWIN. Overview of Glibert's syndrome. Drug TherBull. 2019 Dec 57(2):27-30.10) [facility] 2020, Gilbert Syndrome, accessed 30 May 2021,https://my.[facility].org/health/diseases/69908-xuxqcmfi- syndromeDisclaimer:This test was developed and its performance characteristics determinedby [facility]'s Pathology and Laboratory Medicine Department. Ithas not been cleared or approved by the FDA. [facility]'sPath[facility] Medicine Department is regulated under CLIAas certified to perform high-complexity testing. This test is used forclinical purposes. It should not b e regarded as investigational or forresearch.Testing and interpretation performed at [facility], [address] [place] [address]. CLIA Number: [id number] reviewed by Maria Alejandra Vu, PhD, FORMERLY [facility]IAL HOSPITALDPerformed By: #### DUPNL1 ####[facility] LIMSCLIA [id number] [address]Flexible sigmoidoscopy studyon 02-10-3791S03 Gastrointestinal Endoscopy Patient Name: Brian Oneal Procedure Date: 07/22/2024 2:05 PM Date of : 1950 Admit Type: Ambulatory Age: 74 Gender: Male Note Status: Finalized Attending MD: Micha Avina MD, [id number] Procedure: Flexible Sigmoidoscopy Indications: Rectal cancer Providers: [...] Addenda: 0 Note Initiated On: 07/22/2024 2:05 PMPROVATIONRegency Hospital ToledoRadiology Study observation (narrative)[facility]edoUA DIP, URINE (POC)on 77-33-7681WKGPPWIFH UA (POCT)NegativeNegativeRegency Hospital ToledoCLARITY UA (POCT)ClearRegency Hospital [facility]edo COLOR UA (POCT)YellowRegency Hospital ToledoGLUCOSE UA (POCT)NegativeNegative mg/dL [facility]edoHemoglobin Ql (U)NegativeNegativeRegency Hospital ToledoKETONE UA (POCT)NegativeNegative mg/dLRegency Hospital ToledoLEUKOCYTES UA (POCT)NegativeNegative [facility] ToledoNITRITE UA (POCT)NegativeNegativeRegency Hospital ToledoPH UA (POCT)6.5 4.5 - 8.0[facility] ToledoProtein Ql (U)NegativeNegative mg/dLRegency Hospital [facility]edo SPECIFIC GRAVITY UA (POCT)1.0151.005 - 1.030[facility] ToledoUROBILINOGEN UA (POCT)0.2Normal E.U./dLRegency Hospital ToledoLocation:[facility], [address] [place] [address], [address]IUPECVOPZST. ELIZABETH HOSPITAL POINT OF CARERegency Hospital ToledoCBC panel Auto (Bld)on 66-89-8299Nboifnawjnq distribution width (RBC) [Ratio]15.7 % High11.5-15.0[facility] Cleveland-FairhillComment on above:Order Comment: Specimen Type: BLOOD SPECIMENOrdering Facility: [facility] Address:[address] [place], [place] [address]Performed By: #### 98702-4 ####[facility] LABIA [id number] [place] [address] [place] OF AMERICAHematocrit (Bld) [Volume fraction]31.6 %Low39.0-51.0 [facility] on above:Order Comment: Specimen Type: BLOOD SPECIMENOrdering Facility: [facility] Address:[address] [place], [place] [address]Performed By: #### 92285-8 ####[facility] LABIA [id number] [place] [address] [place] AMERICAHemoglobin (Bld) [Mass/Vol]9.4 g/dLLow13.0-17.0[facility] Comment on above:Order Comment: Specimen Type: BLOOD SPECIMENOrdering Facility: [facility] Address:[address] [place] [address] Performed By: #### 48165-7 ####[facility] LABIA [id number] [place] [address] [place] MCH (RBC) [Entitic mass]28.9 xjAmqsfp87.0-34.0[facility] on above:Order Comment: Specimen Type: BLOOD SPECIMENOrdering Facility: [facility] Address:[address] [place] [address] Performed By: #### 14579-7 ####[facility] LABIA [id number] [place] [address] [place] MCHC (RBC) [Mass/Vol]29.7 g/dLLow30.5-36.0[facility] on above:Order Comment: Specimen Type: BLOOD SPECIMENOrdering Facility: [facility] Address:[address] [place], [place] [address]Performed By: #### 39065-0 ####[facility] LABIA [id number] [place] [address] [place] AMERICAMCV (RBC) [Entitic vol]97.2 gXXvxwvi63.0-100.0[facility] on above:Order Comment: Specimen Type: BLOOD SPECIMENOrdering Facility: [facility] Address:[address] [place], [place] [address]Performed By: #### 64081- 2 ####[facility] LABCLIA [id number] [place] [address] [facility] AMERICANucleated RBC (Bld) [#/Vol] 10*3/uLNormal<0.01[facility] on above:Order Comment: Specimen Type: BLOOD SPECIMENOrdering Facility: [facility] Address:[address] [place], [place] [address]Performed By: #### 20212-8 ####[facility] LABCLIA [id number] [address] STATES OF AMERICAPlatelet mean volume (Bld) [Entitic vol]9.5 fLNormal9.0-12.7CSt. [facility] Hospital on above: Order Comment: Specimen Type: BLOOD SPECIMENOrdering Facility: [facility] Address:[address] [place], [place] [address]Performed By: #### 55662- 2 ####[facility] LABCLIA [id number] [place] [address] [place] AMERICAPlatelets (Bld) [#/Vol]394 10*3/fMEyqors335-853DiybsiureKettering Health Behavioral Medical Center on above:Order Comment: Specimen Type: BLOOD SPECIMENOrdering Facility: [facility] Address:[address] [place], [place] [address]Performed By: #### 87273-0 ####[facility] LABCLIA [id number] [place] [address] [place] AMERICARBC (Bld) [#/Vol]3.25 10*6/uLLow 4.20-6.00[facility] on above:Order Comment: Specimen Type: BLOOD SPECIMENOrdering Facility: [facility] Address:[address] [place], [place] [address]Performed By: #### 84563-4 ####[facility] LABCLIA [id number] [place] [address] [place] AMERICAWBC (Bld) [#/Vol]8.70 10*3/uLNormal3.70-11.00[facility] on above:Order Comment: Specimen Type: BLOOD SPECIMENOrdering Facility: [facility] Address:[address] [place], [place] [address]Performed By: #### 68079-1 ####[facility] LABCLIA [id number] [place] [address] [place] AMERICACNOVon 43-44-5699JFHMNpmqadMquzmkcfa Clinic ClevelandComprehensive metabolic 2000 panelon 84-98-4761Izfhsgy [Mass/Vol]3.3 g/dLLow3.9-4.9CSt. [facility] Hospital on above:Order Comment: Specimen Type: BLOOD SPECIMENOrdering Facility: [facility] Address:[address] [place], [place] [address]Performed By: #### 40993-9 ####[facility] LABCLIA [id number] [place] [address] [place] AMERICAALP [Catalytic activity/Vol]53 U/BTouivp75-739YxijenvurSelect Medical Specialty Hospital - [place] Comment on above:Order Comment: Specimen Type: BLOOD SPECIMENOrdering Facility: [facility] Address:[address] [place] [address] Performed By: #### 35982-1 ####[facility] LABCLIA [id number] [place] [id number] [place] ALT [Catalytic activity/Vol]22 U/YQcgrwo49-37Xnqzfiiyi Clinic ClevelandComment on above:Order Comment: Specimen Type: BLOOD SPECIMENOrdering Facility: [facility] Address:[address] [place] [address] Performed By: #### 69400-1 ####[facility] LABCLIA [id number] [place] [address] [place] Anion gap [Moles/Vol]10 mmol/LNormal8-15[facility] on above:Order Comment: Specimen Type: BLOOD SPECIMENOrdering Facility: [facility] Address:[address] [place], [place] [address]Performed By: #### 86225-0 ####[facility] LABCLIA [id number] [place] [address] [place] AMERICAAST [Catalytic activity/Vol]19 U/LVumisu61-19PwqtsjaxzKettering Health Behavioral Medical Center on above:Order Comment: Specimen Type: BLOOD SPECIMENOrdering Facility: [facility] Address:[address] [place], [place] [address]Performed By: #### 36275- 8 ####[facility] LABCLIA [id number] [place] [address] [place] AMERICABilirubin [Mass/Vol]0.7 mg/dL Normal0.2-1.3CSt. Vincent Hospital on above:Order Comment: Specimen Type: BLOOD SPECIMENOrdering Facility: [facility] Address:[address] [place], [place] [address]Performed By: #### 66451-7 ####[facility] LABCLIA [id number] [place] [address] [place] AMERICACalcium [Mass/Vol]9.1 mg/dLNormal8.5-10.2CSt. [facility] Hospital on above:Order Comment: Specimen Type: BLOOD SPECIMENOrdering Facility: [facility] Address:[address] [place], [place] [address]Performed By: #### 48509-2 ####[facility] LABCLIA [id number] [place] [address] [place] AMERICAChloride [Moles/Vol]104 mmol/ZIqogch64-313AooykxjdqSelect Medical Specialty Hospital - [place]-[facility] Comment on above:Order Comment: Specimen Type: BLOOD SPECIMENOrdering Facility: [facility] Address:[address] [place] [address] Performed By: #### 91586-2 ####[facility] LABCLIA [id number] [place] [address] [place] CO2 [Moles/Vol]25 mmol/MBqlgki41-33YodvhmkfzKettering Health Behavioral Medical Center on above: Order Comment: Specimen Type: BLOOD SPECIMENOrdering Facility: [facility] Address:[address] [place], [place] [address]Performed By: #### 14736- 8 ####[facility] LABCLIA [id number] [place] [address] [place] AMERICACreatinine [Mass/Vol]1.39 mg/dL High0.73-1.22[facility]-FairhillComment on above:Order Comment: Specimen Type: BLOOD SPECIMENOrdering Facility: [facility] Address:[address] [place], [place] [address]Performed By: #### 57053-7 ####[facility] LABIA [id number] [place] [address] [place] AMERICACreatinine and Glomerular filtration rate.predicted panel (S/P/Bld)53 mL/min/1.73m???Low>=60[facility] on above:Order Comment: Specimen Type: BLOOD SPECIMENOrdering Facility: [facility] Address:[address] [place], [place] [address]Result Comment: Estimated Glomerular Filtration Rate (eGFR) is calculated using the 2020 CKD-EPI creatinine equation. This equation utilizes serum creatinine, sex, and age as parameters. The creatinine assay has traceable calibration to isotope dilution- mass spectrometry. Refer to KDIGO guidelines for clinical interpretation. In patients with unstable renal function, e.g. those with acute kidney injury, the eGFR may not accurately reflect actual GFR.Performed By: #### 65859-2 ####[facility] LABCLIA [id number] [place] [address] [place] AMERICAGlucose [Mass/Vol]92 mg/dLNormal 74-99[facility] on above:Order Comment: Specimen Type: BLOOD SPECIMENOrdering Facility: [facility] Address:[address] [place], [place] [address]Result Comment: The [place] Diabetes Association (ADA) provides guidance for cutoff [...] unequivocal hyperglycemia, results should be confirmed by repeattesting. In a patient with classic symptoms of hyperglycemia or hyperglycemic crisis, random plasmaglucose results greater than or equal to 200 mg/dL meet the criteria for diagnosis of diabetes.Reference: Standards of Medical Care in Diabetes 2016, [place] Diabetes Association. Diabetes Care. 2016.39(Suppl 1).Performed By: #### 70758-5 ####[facility] LABCLIA [id number] [place] [address] [place] AMERICAPotassium [Moles/Vol]5.1 mmol/L Normal3.7-5.1CSt. [facility] Hospital on above:Order Comment: Specimen Type: BLOOD SPECIMENOrdering Facility: [facility] Address:[address] [place], [place] [address]Performed By: #### 03763-0 ####[facility] LABIA [id number] [place] [address] [place] AMERICAProtein [Mass/Vol]6.0 g/dLLow6.3-8.0[facility] on above:Order Comment: Specimen Type: BLOOD SPECIMENOrdering Facility: [facility] Address:[address] [place], [place] [address]Performed By: #### 24435-5 ####[facility] LABCLIA [id number] [place] [address] [place] Sodium [Moles/Vol]139 mmol/ZEkopcp740-044RbcxrxpufKettering Health Behavioral Medical Center on above:Order Comment: Specimen Type: BLOOD SPECIMENOrdering Facility: [facility] Address:[address] [place], [place] [address]Performed By: #### 89002-0 ####[facility] LABCLIA [id number] [place] [address] [place] AMERICAUrea nitrogen [Mass/Vol]22 mg/dLNormal9-24[facility] on above:Order Comment: Specimen Type: BLOOD SPECIMENOrdering Facility: [facility] Address:[address] [place], [place] [address]Performed By: #### 92398- 8 ####[facility] LABCLIA [id number] [place] [address] [place] AMERICAECG COMPLETEon 57-73-7630RLO COMPLETENormalCSumma Health Akron CampusXR CHEST 2V FRONTAL/LATon 83-58-2829OE CHEST 2V FRONTAL/LATNormalCSumma Health Akron CampusXR Chest PA and Lateralon 69-76-6805EAZEQBPPLN: See result. Highway Design Engineer: FREYA Transcribe Date/Time: Jul 03 2024 2:22P Dictated by : EMILY BRAVO MD This examination was interpreted and the report reviewed and electronically signed by: EMILY BRAVO MD on Jul 03 2024 2:23PM [facility] DIVISION OF RADIOLOGY* * *Final Report* * * DATE OF [...] Bones and soft tissues: Unremarkable. DIVISION OF RADIOLOGYProvider, [facility] [place] - 07/03/2024 * * *Final Report* * [...] soft tissues: Unremarkable. IMPRESSION IMPRESSION: See result. Highway Design Engineer: FREYA Transcribe Date/Time: Jul 03 2024 2:22P Dictated by : EMILY BRAVO MD This examination was interpreted and the report reviewed and electronically signed by: EMILY BRAVO MD on Jul 03 2024 2:23PM EST [facility]Rad[facility] observation (narrative)[facility] Chest PA and LateralOrdered By: Ccf Provider on 33-75-3782Ubmsiromx ClinicALLIED HEALTHon 03-07-0231SHGAPQ HEALTHNormalCSumma Health Akron CampusCASE MANAGEMon 21-26-6977JTJK MANAGEMNormalSelect Medical Specialty Hospital - Cleveland-FairhillCB panel Auto (Bld)on 28-29-6301Prnclfeyfwu distribution width (RBC) [Ratio]15.9 %High11.5-15.0 [facility] Cleveland-FairhillComment on above:Order Comment: Specimen Type: BLOOD SPECIMENOrdering Facility: [facility] Address:[address] [place], [place] [address]Performed By: #### 28323-3 ####[facility] LABIA [id number] [place] [address] [place] AMERICAHematocrit (Bld) [Volume fraction]28.7 %Low39.0-51.0[facility] on above:Order Comment: Specimen Type: BLOOD SPECIMENOrdering Facility: [facility] Address:[address] [place], [place] [address]Performed By: #### 89948-3 ####[facility] LABIA [id number] [place] [address] [place] Hemoglobin (Bld) [Mass/Vol]9.0 g/dLLow13.0-17.0[facility] on above:Order Comment: Specimen Type: BLOOD SPECIMENOrdering Facility: [facility] Address:[address] [place] [address] Performed By: #### 04581-4 ####[facility] LABIA [id number] [place] [address] [place] MCH (RBC) [Entitic mass]29.9 htEmsjee30.0-34.0[facility] on above:Order Comment: Specimen Type: BLOOD SPECIMENOrdering Facility: [facility] Address:[address] [place] [address] Performed By: #### 88371-5 ####[facility] LABIA [id number] [place] [address] [place] MCHC (RBC) [Mass/Vol]31.4 g/qCCrkssr59.5-36.0[facility] on above:Order Comment: Specimen Type: BLOOD SPECIMENOrdering Facility: [facility] Address:[address] [place] [address] Performed By: #### 28364-2 ####[facility] LABIA [id number] [place] [address] [place] MCV (RBC) [Entitic vol]95.3 zKJfpdjm52.0-100.0[facility] on above:Order Comment: Specimen Type: BLOOD SPECIMENOrdering Facility: [facility] Address:[address] [place] [address] Performed By: #### 48622-5 ####[facility] LABIA [id number] [place] [address] [place] Nucleated RBC (Bld) [#/Vol]0.03 10*3/uLHigh<0.01[facility] Comment on above:Order Comment: Specimen Type: BLOOD SPECIMENOrdering Facility: [facility] Address:[address] [place] [address] Performed By: #### 64890-9 ####[facility] [id number] [place] [address] [place] Platelet mean volume (Bld) [Entitic vol]10.5 fLNormal9.0-12.7CSt. [facility] Hospital on above:Order Comment: Specimen Type: BLOOD SPECIMENOrdering Facility: [facility] Address:[address] [place], [place] [address]Performed By: #### 98060-2 ####[facility] [id number] [place] [address] [place] Platelets (Bld) [#/Vol]233 10*3/zVDpzecq801-513CizizuheqKettering Health Behavioral Medical Center on above:Order Comment: Specimen Type: BLOOD SPECIMENOrdering Facility: [facility] Address:[address] [place] [address] Performed By: #### 21843-3 ####[facility] LABIA [id number] [place] [address] [place] RBC (Bld) [#/Vol]3.01 10*6/uLLow4.20-6.00[facility] on above:Order Comment: Specimen Type: BLOOD SPECIMENOrdering Facility: [facility] Address:[address] [place], [place] [address]Performed By: #### 00346-0 ####[facility] LABCLIA [id number] [place] [address] [place] AMERICAWBC (Bld) [#/Vol]10.90 10*3/uLNormal3.70-11.00[facility] on above:Order Comment: Specimen Type: BLOOD SPECIMENOrdering Facility: [facility] Address:[address] [place], [place] [address]Performed By: #### 88114- 2 ####[facility] LABCLIA [id number] [place] [address] [place] AMERICAComprehensive metabolic 2000 panelon 35-94-8954Txsmugg [Mass/Vol]3.0 g/dLLow3.9-4.9CSum[facility] Comment on above:Order Comment: Specimen Type: BLOOD SPECIMENOrdering Facility: [facility] Address:[address] [place] [address] Performed By: #### 53764-0 ####[facility] LABCLIA [id number] [place] [address] [place] ALP [Catalytic activity/Vol]45 U/ALvkqsg38-474XhntwfshmKettering Health Behavioral Medical Center on above:Order Comment: Specimen Type: BLOOD SPECIMENOrdering Facility: [facility] Address:[address] [place] [address] Performed By: #### 46434-5 ####[facility] LABCLIA [id number] [place] [address] [place] ALT [Catalytic activity/Vol]25 U/MYpqion39-59NgwxnaaroKettering Health Behavioral Medical Center on above:Order Comment: Specimen Type: BLOOD SPECIMENOrdering Facility: [facility] Address:[address] [place] [address] Performed By: #### 94730-8 ####[facility] LABCLIA [id number] [place] [address] [place] Anion gap [Moles/Vol]10 mmol/LNormal8-15[facility] on above:Order Comment: Specimen Type: BLOOD SPECIMENOrdering Facility: [facility] Address:[address] [place], [place] [address]Performed By: #### 69235-8 ####[facility] LABCLIA [id number] [place] [address] [place] AMERICAAST [Catalytic activity/Vol]28 U/CKaerda51-09PdtxjsadwKettering Health Behavioral Medical Center on above:Order Comment: Specimen Type: BLOOD SPECIMENOrdering Facility: [facility] Address:[address] [place], [place] [address]Performed By: #### 15825- 8 ####[facility] LABCLIA [id number] [place] [address] [place] AMERICABilirubin [Mass/Vol]0.8 mg/dL Normal0.2-1.3CSt. [facility] on above:Order Comment: Specimen Type: BLOOD SPECIMENOrdering Facility: [facility] Address:[address] [place], [place] [address]Performed By: #### 70962-4 ####[facility] LABCLIA [id number] [place] [address] [place] AMERICACalcium [Mass/Vol]8.4 mg/dLLow8.5-10.2CSt. [facility] on above:Order Comment: Specimen Type: BLOOD SPECIMENOrdering Facility: [facility] Address:[address] [place], [place] [address]Performed By: #### 59877-4 ####[facility] LABCLIA [id number] [place] [id number] [place] Chloride [Moles/Vol]101 mmol/SBggxet87-729ZtqwxlffhKettering Health Behavioral Medical Center on above:Order Comment: Specimen Type: BLOOD SPECIMENOrdering Facility: [facility] Address:[address] [place], [place] [address]Performed By: #### 59614-6 ####[facility] LABCLIA [id number] [place] [address] [place] AMERICACO2 [Moles/Vol]28 mmol/MVtuohw68-81UolagvmsaKettering Health Behavioral Medical Center on above:Order Comment: Specimen Type: BLOOD SPECIMENOrdering Facility: [facility] Address:[address] [place], [place] [address]Performed By: #### 73508-9 ####[facility]IA [id number] [place] [address] [place] AMERICACreatinine [Mass/Vol]1.46 mg/dL High0.73-1.22[facility] on above:Order Comment: Specimen Type: BLOOD SPECIMENOrdering Facility: [facility] Address:[address] [place], [place] [address]Performed By: #### 36674-3 ####[facility] [id number] [place] [address] [place] AMERICACreatinine and Glomerular filtration rate.predicted panel (S/P/Bld)50 mL/min/1.73m???Low>=60[facility] on above:Order Comment: Specimen Type: BLOOD SPECIMENOrdering Facility: [facility] Address:[address] [place], [place] [address]Result Comment: Estimated Glomerular Filtration Rate (eGFR) is calculated using the 2020 CKD-EPI creatinine equation. This equation utilizes serum creatinine, sex, and age as parameters. The creatinine assay has traceable calibration to isotope dilution- mass spectrometry. Refer to KDIGO guidelines for clinical interpretation. In patients with unstable renal function, e.g. those with acute kidney injury, the eGFR may not accurately reflect actual GFR.Performed By: #### 41550-0 ####[facility] LABCLIA [id number] [place] [address] [place] AMERICAGlucose [Mass/Vol]107 mg/dLHigh 74-99[facility] on above:Order Comment: Specimen Type: BLOOD SPECIMENOrdering Facility: [facility] Address:[address] [place], [place] [address]Result Comment: The [place] Diabetes [employer] (ADA) provides guidance for cutoff [...] unequivocal hyperglycemia, results should be confirmed by repeattesting. In a patient with classic symptoms of hyperglycemia or hyperglycemic crisis, random plasmaglucose results greater than or equal to 200 mg/dL meet the criteria for diagnosis of diabetes.Reference: Standards of Medical Care in Diabetes 2016, [place] [employer]. Diabetes Care. 2016.39(Suppl 1).Performed By: #### 23110-3 ####[facility]IA [id number] [place] [address] [place] AMERICAPotassium [Moles/Vol]4.2 mmol/L Normal3.7-5.1CSt. [facility] on above:Order Comment: Specimen Type: BLOOD SPECIMENOrdering Facility: [facility] Address:[address] [place], [place] [address]Performed By: #### 53619-7 ####[facility] [id number] [place] [address] [place] AMERICAProtein [Mass/Vol]5.3 g/dLLow6.3-8.0[facility] on above:Order Comment: Specimen Type: BLOOD SPECIMENOrdering Facility: [facility] Address:[address] [place], [place] [address]Performed By: #### 37523-2 ####[facility]IA [id number] [id number], [place] [address] [place] Sodium [Moles/Vol]139 mmol/GXelrcq110-023FzttzzvtiKettering Health Behavioral Medical Center on above:Order Comment: Specimen Type: BLOOD SPECIMENOrdering Facility: [facility] Address:[address] [place], [place] [address]Performed By: #### 29695-2 ####[facility] LABCLIA [id number] [place] [address] [place] AMERICAUrea nitrogen [Mass/Vol]25 mg/dLHigh9-24[facility] on above:Order Comment: Specimen Type: BLOOD SPECIMENOrdering Facility: [facility] Address:[address] [place], [place] [address]Performed By: #### 15629- 8 ####[facility] LABCLIA [id number] [place] [address] [place] AMERICAXR ABDOMEN 1V SUPINEon 06-26-2024 XR ABDOMEN 1V SUPINENormalCchildren's hospital for rehabilitationand [facility] HospitalIED HEALTHon 06-25-2024 ALLIED HEALTHNormalCchildren's hospital for rehabilitationand [facility] MANAGEMon 25-62-9239IMYE MANAGEMNormalSelect Medical Specialty [facility] Cleveland-FairhillCB panel Auto (Bld)on 06-25-2024 Erythrocyte distribution width (RBC) [Ratio]15.7 %High11.5-15.0[facility] on above:Order Comment: Specimen Type: BLOOD SPECIMENOrdering Facility: [facility] Address:[address] [place], [place] [address]Performed By: #### 02196-3 ####[facility] LABCLIA [id number] [place] [address] [place] Hematocrit (Bld) [Volume fraction]29.0 %Low39.0-51.0[facility] Comment on above:Order Comment: Specimen Type: BLOOD SPECIMENOrdering Facility: [facility] Address:[address] [place] [address] Performed By: #### 20222-8 ####[facility] LABCLIA [id number] [place] [address] [place] Hemoglobin (Bld) [Mass/Vol]9.1 g/dLLow13.0-17.0[facility] on above:Order Comment: Specimen Type: BLOOD SPECIMENOrdering Facility: [facility] Address:[address] [place] [address] Performed By: #### 55813-2 ####[facility] LABK[facility] [id number] [place] [address] [place] MCH (RBC) [Entitic mass]29.5 mkCijfav18.0-34.0[facility] on above:Order Comment: Specimen Type: BLOOD SPECIMENOrdering Facility: [facility] Address:[address] [place] [address] Performed By: #### 85999-6 ####[facility] [id number] [place] [address] [place] MCHC (RBC) [Mass/Vol]31.4 g/zYRsmkxm24.5-36.0[facility] on above:Order Comment: Specimen Type: BLOOD SPECIMENOrdering Facility: [facility] Address:[address] [place] [address] Performed By: #### 22444-9 ####[facility] [id number] [place] [address] [place] MCV (RBC) [Entitic vol]94.2 tUYwgzkk07.0-100.0[facility] on above:Order Comment: Specimen Type: BLOOD SPECIMENOrdering Facility: [facility] Address:[address] [place] [address] Performed By: #### 67468-8 ####[facility] [id number] [place] [address] [place] Nucleated RBC (Bld) [#/Vol]0.04 10*3/uLHigh<0.01[facility] Comment on above:Order Comment: Specimen Type: BLOOD SPECIMENOrdering Facility: [facility] Address:[address] [place] [address] Performed By: #### 74247-4 ####[facility] LABCLIA [id number] [place] [address] [place] Platelet mean volume (Bld) [Entitic vol]10.5 fLNormal9.0-12.7CSt. [facility] on above:Order Comment: Specimen Type: BLOOD SPECIMENOrdering Facility: [facility] Address:[address] [place], [place] [address]Performed By: #### 53899-3 ####[facility]IA [id number] [place] [address] [place] Platelets (Bld) [#/Vol]202 10*3/oRBsnlum772-486OtptokksjSuburban Community Hospital & Brentwood Hospitalment on above:Order Comment: Specimen Type: BLOOD SPECIMENOrdering Facility: [facility] Address:[address] [place] [address] Performed By: #### 93919-6 ####[facility] [id number] [place] [address] [place] RBC (Bld) [#/Vol]3.08 10*6/uLLow4.20-6.00[facility] on above:Order Comment: Specimen Type: BLOOD SPECIMENOrdering Facility: [facility] Address:[address] [place], [place] [address]Performed By: #### 87430-6 ####[facility] [id number] [place] [address] [place] AMERICAWBC (Bld) [#/Vol]10.82 10*3/uLNormal3.70-11.00[facility] on above:Order Comment: Specimen Type: BLOOD SPECIMENOrdering Facility: [facility] Address:[address] [place], [place] [address]Performed By: #### 14484- 2 ####[facility] LABIA [id number] [place] [address] [place] AMERICAComprehensive metabolic 2000 panelon 30-08-8544Ummrdap [Mass/Vol]3.1 g/dLLow3.9-4.9CSumma [facility] Comment on above:Order Comment: Specimen Type: BLOOD SPECIMENOrdering Facility: [facility] Address:[address] [place] [address] Performed By: #### 28594-0 ####[facility] LABCLIA [id number] [place] [address] [place] ALP [Catalytic activity/Vol]46 U/YPjwpze07-061DalgrjltaSelect Medical Specialty Hospital - Cleveland-FairhillComment on above:Order Comment: Specimen Type: BLOOD SPECIMENOrdering Facility: [facility] Address:[address] [place] [address] Performed By: #### 58383-2 ####[facility] [id number] [place] [address] [place] ALT [Catalytic activity/Vol]22 U/CQyvnnp47-14VzjorripkSelect Medical Specialty Hospital - Cleveland-FairhillComment on above:Order Comment: Specimen Type: BLOOD SPECIMENOrdering Facility: [facility] Address:[address] [place] [address] Performed By: #### 33450-2 ####[facility] LABCLIA [id number] [place] [id number] [place] Anion gap [Moles/Vol]10 mmol/LNormal8-15[facility]-FairhillComselect specialty hospital-[facility] on above:Order Comment: Specimen Type: BLOOD SPECIMENOrdering Facility: [facility] Address:[address] [place], [place] [address]Performed By: #### 71870-6 ####[facility] LABCLIA [id number] [place] [address] [place] AMERICAAST [Catalytic activity/Vol]31 U/SHxdswh25-32VktccsqxwKettering Health Behavioral Medical Center on above:Order Comment: Specimen Type: BLOOD SPECIMENOrdering Facility: [facility] Address:[address] [place], [place] [address]Performed By: #### 27340- 8 ####[facility] LABCLIA [id number] [place] [address] [place] AMERICABilirubin [Mass/Vol]0.8 mg/dL Normal0.2-1.3CSt. [facility] on above:Order Comment: Specimen Type: BLOOD SPECIMENOrdering Facility: [facility] Address:[address] [place], [place] [address]Performed By: #### 57700-0 ####[facility] LABCLIA [id number] [place] [address] [place]ICACalcium [Mass/Vol]8.7 mg/dLNormal8.5-10.2CSt. [facility] on above:Order Comment: Specimen Type: BLOOD SPECIMENOrdering Facility: [facility] Address:[address] [place], [place] [address]Performed By: #### 90799-2 ####[facility] LABCLIA [id number] [place] [address] [place] AMERICAChloride [Moles/Vol]100 mmol/OWuziou89-958YprsfvxptSelect Medical Specialty Hospital [facility] Comment on above:Order Comment: Specimen Type: BLOOD SPECIMENOrdering Facility: [facility] Address:[address] [place] [address] Performed By: #### 14356-2 ####[facility] [id number] [place] [address] [place] CO2 [Moles/Vol]28 mmol/VWpsrim20-18RdwsyxvujKettering Health Behavioral Medical Center on above: Order Comment: Specimen Type: BLOOD SPECIMENOrdering Facility: [facility] Address:[address] [place], [place] [address]Performed By: #### 04176- 8 ####[facility] [id number] [place] [address] [place]ICACreatinine [Mass/Vol]1.47 mg/dL High0.73-1.22[facility] on above:Order Comment: Specimen Type: BLOOD SPECIMENOrdering Facility: [facility] Address:[address] [place], [place] [address]Performed By: #### 75829-8 ####[facility] [id number] [place] [address] [place]ICACreatinine and Glomerular filtration rate.predicted panel (S/P/Bld)49 mL/min/1.73m???Low>=60[facility] on above:Order Comment: Specimen Type: BLOOD SPECIMENOrdering Facility: [facility] Address:[address] [place], [place] [address]Result Comment: Estimated Glomerular Filtration Rate (eGFR) is calculated using the 2020 CKD-EPI creatinine equation. This equation utilizes serum creatinine, sex, and age as parameters. The creatinine assay has traceable calibration to isotope dilution- mass spectrometry. Refer to KDIGO guidelines for clinical interpretation. In patients with unstable renal function, e.g. those with acute kidney injury, the eGFR may not accurately reflect actual GFR.Performed By: #### 75692-0 ####[facility] [id number] [place] [address] [place] AMERICAGlucose [Mass/Vol]161 mg/dLHigh 74-99[facility] on above:Order Comment: Specimen Type: BLOOD SPECIMENOrdering Facility: [facility] Address:[address] [place], [place] [address]Result Comment: The [place] Diabetes Association (ADA) provides guidance for cutoff [...] unequivocal hyperglycemia, results should be confirmed by repeattesting. In a patient with classic symptoms of hyperglycemia or hyperglycemic crisis, random plasmaglucose results greater than or equal to 200 mg/dL meet the criteria for diagnosis of diabetes.Reference: Standards of Medical Care in Diabetes 2016, [place] [employer]. Diabetes Care. 2016.39(Suppl 1).Performed By: #### 70604-6 ####[facility] LABCLIA [id number] [place] [address] [place] AMERICAPotassium [Moles/Vol]3.8 mmol/L Normal3.7-5.1CSt. [facility] on above:Order Comment: Specimen Type: BLOOD SPECIMENOrdering Facility: [facility] Address:[address] [place], [place] [address]Performed By: #### 55482-2 ####[facility] [id number] [place] [address] [place] AMERICAProtein [Mass/Vol]5.5 g/dLLow6.3-8.0[facility] on above:Order Comment: Specimen Type: BLOOD SPECIMENOrdering Facility: [facility] Address:[address] [place], [place] [address]Performed By: #### 84732-6 ####[facility] [id number] [place] [address] [place] Sodium [Moles/Vol]138 mmol/LIdlnsm151-385CuevrvsoyKettering Health Behavioral Medical Center on above:Order Comment: Specimen Type: BLOOD SPECIMENOrdering Facility: [facility] Address:[address] [place], [place] [address]Performed By: #### 42554-6 ####[facility] [id number] [place] [address] [place] AMERICAUrea nitrogen [Mass/Vol]30 mg/dLHigh9-24[facility] on above:Order Comment: Specimen Type: BLOOD SPECIMENOrdering Facility: [facility] Address:[address] [place], [place] [address]Performed By: #### 30555- 8 ####[facility] LABCLIA [id number] [place] [address] [place] AMERICATHERAPY NTon 17-71-9395IHGWTFJ NT NormalSelect Medical Specialty Hospital - Cleveland-FairhillALLIED HEALTHon 42-94-3227CEECRK HEALTHNormal [facility] Cleveland-FairhillCB panel Auto (Bld)on 13-65-7063Vapoyomylcc distribution width (RBC) [Ratio]15.5 %High11.5-15.0[facility] Comment on above:Order Comment: Specimen Type: BLOOD SPECIMENOrdering Facility: [facility] Address:[address] [place] [address] Performed By: #### 46640-6 ####[facility] LABCLIA [id number] [place] [address] [place] Hematocrit (Bld) [Volume fraction]27.0 %Low39.0-51.0[facility] Comment on above:Order Comment: Specimen Type: BLOOD SPECIMENOrdering Facility: [facility] Address:[address] [place] [address] Performed By: #### 76238-3 ####[facility] LABCLIA [id number] [place] [address] [place] Hemoglobin (Bld) [Mass/Vol]8.5 g/dLLow13.0-17.0[facility] Cleveland-FairhillComment on above:Order Comment: Specimen Type: BLOOD SPECIMENOrdering Facility: [facility] Address:[address] [place] [address] Performed By: #### 79263-7 ####[facility] LABCLIA [id number] [place] [address] [place] MCH (RBC) [Entitic mass]29.9 gnHhbrgb60.0-34.0[facility] Cleveland-FairhillComment on above:Order Comment: Specimen Type: BLOOD SPECIMENOrdering Facility: [facility] Address:[address] [place] [address] Performed By: #### 20018-9 ####[facility] [id number] [place] [address] [place] MCHC (RBC) [Mass/Vol]31.5 g/yJMdmrjv60.5-36.0[facility] Cleveland-FairhillComment on above:Order Comment: Specimen Type: BLOOD SPECIMENOrdering Facility: [facility] Address:[address] [place] [address] Performed By: #### 71506-1 ####[facility] [id number] [place] [address] [place] MCV (RBC) [Entitic vol]95.1 dKBuyfnr14.0-100.0[facility] on above:Order Comment: Specimen Type: BLOOD SPECIMENOrdering Facility: [facility] Address:[address] [place] [address] Performed By: #### 76918-1 ####[facility] [id number] [place] [address] [place] Nucleated RBC (Bld) [#/Vol]0.08 10*3/uLHigh<0.01[facility] Comment on above:Order Comment: Specimen Type: BLOOD SPECIMENOrdering Facility: [facility] Address:[address] [place] [address] Performed By: #### 45773-8 ####[facility] [id number] [place] [address] [place] Platelet mean volume (Bld) [Entitic vol]11.2 fLNormal9.0-12.7CSt. [facility] on above:Order Comment: Specimen Type: BLOOD SPECIMENOrdering Facility: [facility] Address:[address] [place], [place] [address]Performed By: #### 04583-6 ####[facility] LABCLIA [id number] [address] [address] [place] Platelets (Bld) [#/Vol]163 10*3/hLEzfqho734-803IfdyehnmoSelect Medical Specialty Hospital - Cleveland-FairhillComselect specialty hospital-[facility] on above:Order Comment: Specimen Type: BLOOD SPECIMENOrdering Facility: [facility] Address:[address] [place] [address] Performed By: #### 92347-2 ####[facility] LAB[facility] [id number] [place] [address] [place] RBC (Bld) [#/Vol]2.84 10*6/uLLow4.20-6.00[facility] Cleveland-FairhillComment on above:Order Comment: Specimen Type: BLOOD SPECIMENOrdering Facility: [facility] Address:[address] [place], [place] [address]Performed By: #### 53809-2 ####[facility] [id number] [place] [address] [place] AMERICAWBC (Bld) [#/Vol]9.83 10*3/uLNormal3.70-11.00[facility]-FairhillComselect specialty hospital-[facility] on above:Order Comment: Specimen Type: BLOOD SPECIMENOrdering Facility: [facility] Address:[address] [place], [place] [address]Performed By: #### [id number] ####[facility] [id number] [place] [address] [place] OF AMERICAComprehensive metabolic 2000 panelon [id number] [Mass/Vol]2.9 g/dLLow3.9-4.9CS[facility] Comment on above:Order Comment: Specimen Type: BLOOD SPECIMENOrdering Facility: [facility] Address:[address] [place] [address] Performed By: #### [id number] ####[facility] [id number] [address] [address] [place] ALP [Catalytic activity/Vol]43 U/GLypxkd07-008IvozkyaezKettering Health Behavioral Medical Center on above:Order Comment: Specimen Type: BLOOD SPECIMENOrdering Facility: [facility] Address:[address] [id number] Performed By: #### 97567-3 ####[facility] LABCLIA [id number] [place] [id number] [place] ALT [Catalytic activity/Vol]16 U/NLivbku06-32FdehupohnKettering Health Behavioral Medical Center on above:Order Comment: Specimen Type: BLOOD SPECIMENOrdering Facility: [facility] Address:[address] [place] [address] Performed By: #### 07540-9 ####[facility] LABCLIA [id number] [place] [address] [place] Anion gap [Moles/Vol]10 mmol/LNormal8-15[facility] on above:Order Comment: Specimen Type: BLOOD SPECIMENOrdering Facility: [facility] Address:[address] [place], [place] [address]Performed By: #### 97990-5 ####[facility] LABCLIA [id number] [place] [address] [place] AMERICAAST [Catalytic activity/Vol]25 U/DTjwobh00-73SzcknixdlKettering Health Behavioral Medical Center on above:Order Comment: Specimen Type: BLOOD SPECIMENOrdering Facility: [facility] Address:[address] [place], [place] [id number] By: #### 21271- 8 ####[facility] LABCLIA [id number] [place] [address] [place] AMERICABilirubin [Mass/Vol]0.7 mg/dL Normal0.2-1.3CSt. [facility] on above:Order Comment: Specimen Type: BLOOD SPECIMENOrdering Facility: [facility] Address:[address] [place], [place] [address]Performed By: #### 42149-2 ####[facility] LABCLIA [id number] [place] [address] [place] AMERICACalcium [Mass/Vol]8.9 mg/dLNormal8.5-10.2CSt. [facility] on above:Order Comment: Specimen Type: BLOOD SPECIMENOrdering Facility: [facility] Address:[address] [place], [place] [address]Performed By: #### 23336-3 ####[facility] LABCLIA [id number] [place] [id number] [place] AMERICAChloride [Moles/Vol]98 mmol/WCrafzp79-748VxdkvwfndSelect Medical [facility] [place] Comment on above:Order Comment: Specimen Type: BLOOD SPECIMENOrdering Facility: [facility] Address:[address] [place] [address] Performed By: #### 00092-4 ####[facility] LABCLIA [id number] [place] [address] [place] CO2 [Moles/Vol]28 mmol/UUnvabv94-24CzyhwcgynKettering Health Behavioral Medical Center on above: Order Comment: Specimen Type: BLOOD SPECIMENOrdering Facility: [facility] Address:[address] [place], [place] [address]Performed By: #### 20171- 8 ####[facility] LABCLIA [id number] [place] [address] [place] AMERICACreatinine [Mass/Vol]1.74 mg/dL High0.73-1.22[facility]-FairhillComselect specialty hospital-[facility] on above:Order Comment: Specimen Type: BLOOD SPECIMENOrdering Facility: [facility] Address:[address] [place], [place] [address]Performed By: #### 81635-7 ####[facility] LABCLIA [id number] [place] [id number] [place] AMERICACreatinine and Glomerular filtration rate.predicted panel (S/P/Bld)40 mL/min/1.73m???Low>=60[facility] on above:Order Comment: Specimen Type: BLOOD SPECIMENOrdering Facility: [facility] Address:[address] [place], [place] [address]Result Comment: Estimated Glomerular Filtration Rate (eGFR) is calculated using the 2020 CKD-EPI creatinine equation. This equation utilizes serum creatinine, sex, and age as parameters. The creatinine assay has traceable calibration to isotope dilution- mass spectrometry. Refer to KDIGO guidelines for clinical interpretation. In patients with unstable renal function, e.g. those with acute kidney injury, the eGFR may not accurately reflect actual GFR.Performed By: #### 51936-6 ####[facility] LABIA [id number] [place] [address] [place] AMERICAGlucose [Mass/Vol]104 mg/dLHigh 74-99[facility] on above:Order Comment: Specimen Type: BLOOD SPECIMENOrdering Facility: [facility] Address:[address] [place], [place] [address]Result Comment: The [place] Diabetes Association (ADA) provides guidance for cutoff [...] unequivocal hyperglycemia, results should be confirmed by repeattesting. In a patient with classic symptoms of hyperglycemia or hyperglycemic crisis, random plasmaglucose results greater than or equal to 200 mg/dL meet the criteria for diagnosis of diabetes.Reference: Standards of Medical Care in Diabetes 2016, [place] Diabetes Association. Diabetes Care. 2016.39(Suppl 1).Performed By: #### 56112-1 ####[facility] LABIA [id number] [place] [id number] [place] AMERICAPotassium [Moles/Vol]4.3 mmol/L Normal3.7-5.1CSt. [facility] Hospital on above:Order Comment: Specimen Type: BLOOD SPECIMENOrdering Facility: [facility] Address:[address] [place], [place] [address]Performed By: #### 68004-4 ####[facility] LABCLIA [id number] [place] [address] [place] AMERICAProtein [Mass/Vol]5.4 g/dLLow6.3-8.0[facility] on above:Order Comment: Specimen Type: BLOOD SPECIMENOrdering Facility: [facility] Address:[address] [place], [place] [address]Performed By: #### 58778-0 ####[facility] LABCLIA [id number] [place] [address] [place] Sodium [Moles/Vol]136 mmol/VZpspjo271-400JdvnckxffKettering Health [facility]al [facility] Center on above:Order Comment: Specimen Type: BLOOD SPECIMENOrdering Facility: [facility] Address:[address] [place], [place] [address]Performed By: #### 93786-9 ####[facility] LABCLIA [id number] [place] [address] [place] AMERICAUrea nitrogen [Mass/Vol]34 mg/dLHigh9-24[facility] on above:Order Comment: Specimen Type: BLOOD SPECIMENOrdering Facility: [facility] Address:[address] [place], [place] [address]Performed By: #### 07939- 8 ####[facility] LABCLIA [id number] [place] [id number] [place] AMERICATHERAPY NTon 69-17-8755SIRQTTD NT NormalSelect Medical Specialty Hospital - [facility]-FairhillTHERAPY NTNormalCSumma Health Akron CampusXR CHEST 2V FRONTAL/LATon 81-32-4280BV CHEST 2V FRONTAL/LATNormalCSumma Health Akron CampusCASE MANAGEMon 26-66-4243BWIK MANAGEMNormalSelect [facility] [place] CBC panel Auto (Bld)on 69-60-0095Qqjrupwpbbo distribution width (RBC) [Ratio] 14.3 %Pncfya13.5-15.0[facility] on above:Order Comment: Specimen Type: BLOOD SPECIMENOrdering Facility: [facility] Address:[address] [place], [place] [address]Performed By: #### 37441-6 ####[facility] LABCLIA [id number] [place] [address] [place] AMERICAHematocrit (Bld) [Volume fraction]22.3 %Low39.0-51.0[facility] on above:Order Comment: Specimen Type: BLOOD SPECIMENOrdering Facility: [facility] Address:[address] [place], [place] [address]Performed By: #### 15776- 2 ####[facility] LABIA [id number] [address] STATES OF AMERICAHemoglobin (Bld) [Mass/Vol]7.2 g/dLLow13.0-17.0[facility] on above:Order Comment: Specimen Type: BLOOD SPECIMENOrdering Facility: [facility] Address:[address] [place], [place] [address]Performed By: #### 56482-0 ####[facility] LABIA [id number] [place] [address] [place] [facility]RY COUNTY HOSPITALMCH (RBC) [Entitic mass]30.5 pg Efcpmz03.0-34.0[facility] on above:Order Comment: Specimen Type: BLOOD SPECIMENOrdering Facility: [facility] Address:[address] [place], [place] [address]Performed By: #### 92729-9 ####[facility] LABIA [id number] [place] [address] [place] HENRY COUNTY HOSPITALMCHC (RBC) [Mass/Vol]32.3 g/dL Qyajbo66.5-36.0[facility] on above:Order Comment: Specimen Type: BLOOD SPECIMENOrdering Facility: [facility] Address:[address], [place] [address]Performed By: #### 02899-7 ####[facility] LABIA [id number] [place] [address] [place] HENRY COUNTY HOSPITALMCV (RBC) [Entitic vol]94.5 fL Dzdjcx67.0-100.0[facility] on above:Order Comment: Specimen Type: BLOOD SPECIMENOrdering Facility: [facility] Address:[address] [place], [place] [address]Performed By: #### 60903-2 ####[facility] LABIA [id number] [address]ucleated RBC (Bld) [#/Vol]0.04 10*3/uLHigh<0.01[facility] on above:Order Comment: Specimen Type: BLOOD SPECIMENOrdering Facility: [facility] Address:[address] [place], [place] [address]Performed By: #### 75908-7 ####[facility] LABIA [id number] [place] [address] [place] AMERICAPlatelet mean volume (Bld) [Entitic vol]11.1 fLNormal9.0-12.7CSt. [facility] on above: Order Comment: Specimen Type: BLOOD SPECIMENOrdering Facility: [facility] Address:[address] [place], [place] [address]Performed By: #### 13615- 2 ####[facility] LABIA [id number] [place] [address] [place] AMERICAPlatelets (Bld) [#/Vol]145 10*3/oLFye933-084WzonrdskcKettering Health Behavioral Medical Center on above:Order Comment: Specimen Type: BLOOD SPECIMENOrdering Facility: [facility] Address:[address] [place], [place] [address]Performed By: #### 46558-6 ####[facility] LABIA [id number] [place] [address] [place] AMERICARBC (Bld) [#/Vol]2.36 10*6/uLLow 4.20-6.00[facility] on above:Order Comment: Specimen Type: BLOOD SPECIMENOrdering Facility: [facility] Address:[address] [place], [place] [address]Performed By: #### 78723-4 ####[facility] LABCLIA [id number] [place] [address] [place] AMERICAWBC (Bld) [#/Vol]9.72 10*3/uLNormal3.70-11.00[facility] on above:Order Comment: Specimen Type: BLOOD SPECIMENOrdering Facility: [facility] Address:[address] [place], [place] [address]Performed By: #### 20611-5 ####[facility] LABIA [id number] [address] OF AMERICAComprehensive metabolic 2000 panelon 97-89-0640Cofaomp [Mass/Vol]2.8 g/dLLow3.9-4.9CSt. [facility] on above:Order Comment: Specimen Type: BLOOD SPECIMENOrdering Facility: [facility] Address:[address] [place], [place] [address]Performed By: #### 30216-9 ####[facility] LABCLIA [id number] [place] [address] [place] AMERICAALP [Catalytic activity/Vol]44 U/IQfrmla38-371PundezuiyKettering Health Behavioral Medical Center on above:Order Comment: Specimen Type: BLOOD SPECIMENOrdering Facility: [facility] Address:[address] [place], [place] [address]Performed By: #### 68322-0 ####[facility] LABCLIA [id number] [place] [address] [place] AMERICAALT [Catalytic activity/Vol]15 U/JYjikkx27-56RtkmqgkjrSelect Medical Specialty [facility] Comment on above:Order Comment: Specimen Type: BLOOD SPECIMENOrdering Facility: [facility] Address:[address] [place] [address] Performed By: #### 05465-1 ####[facility] LABCLIA [id number] [address] [address] [place] Anion gap [Moles/Vol]8 mmol/LNormal8-15[facility] on above:Order Comment: Specimen Type: BLOOD SPECIMENOrdering Facility: [facility] Address:[address] [place], [place] [address]Performed By: #### 69185-0 ####[facility] LABCLIA [id number] [place] [address] [place] AMERICAAST [Catalytic activity/Vol]20 U/UHxvfpy15-60PlihfbcrxSelect Medical Specialty Hospital - [facility]-FairhillComment on above:Order Comment: Specimen Type: BLOOD SPECIMENOrdering Facility: [facility] Address:[address] [place], [place] [address]Performed By: #### 90063- 8 ####[facility] LABCLIA [id number] [place] [address] [place] AMERICABilirubin [Mass/Vol]0.4 mg/dL Normal0.2-1.3CSumma Health Akron CampusComselect specialty hospital-[facility] on above:Order Comment: Specimen Type: BLOOD SPECIMENOrdering Facility: [facility] Address:[address] [place], [place] [address]Performed By: #### 11737-1 ####[facility] LABCLIA [id number] [place] [address] [place] AMERICACalcium [Mass/Vol]8.5 mg/dLNormal8.5-10.2CSt. [facility] on above:Order Comment: Specimen Type: BLOOD SPECIMENOrdering Facility: [facility] Address:[address] [place], [place] [address]Performed By: #### 63597-8 ####[facility] LABCLIA [id number] [place] [id number] [place] AMERICAChloride [Moles/Vol]101 mmol/PDafpwa68-649EporctvnrSelect Medical Specialty Hospital [facility] Comment on above:Order Comment: Specimen Type: BLOOD SPECIMENOrdering Facility: [facility] Address:[address] [place] [address] Performed By: #### 15874-5 ####[facility] LABCLIA [id number] [place] [address] [place] CO2 [Moles/Vol]30 mmol/XNtlzyo16-21GminavmqrSelect Medical Specialty Hospital - Cleveland-FairhillComment on above: Order Comment: Specimen Type: BLOOD SPECIMENOrdering Facility: [facility] Address:[address] [place], [place] [address]Performed By: #### 03305- 8 ####[facility] LABCLIA [id number] [place] [address] [place] AMERICACreatinine [Mass/Vol]1.76 mg/dL High0.73-1.22[facility]-FairhillComment on above:Order Comment: Specimen Type: BLOOD SPECIMENOrdering Facility: [facility] Address:[address] [place], [place] [address]Performed By: #### 15218-1 ####[facility] LABIA [id number] [place] [address] [place] AMERICACreatinine and Glomerular filtration rate.predicted panel (S/P/Bld)40 mL/min/1.73m???Low>=60[facility] on above:Order Comment: Specimen Type: BLOOD SPECIMENOrdering Facility: [facility] Address:[address] [place], [place] [address]Result Comment: Estimated Glomerular Filtration Rate (eGFR) is calculated using the 2020 CKD-EPI creatinine equation. This equation utilizes serum creatinine, sex, and age as parameters. The creatinine assay has traceable calibration to isotope dilution- mass spectrometry. Refer to KDIGO guidelines for clinical interpretation. In patients with unstable renal function, e.g. those with acute kidney injury, the eGFR may not accurately reflect actual GFR.Performed By: #### 52812-1 ####[facility] LABIA [id number] [place] [address] [place] AMERICAGlucose [Mass/Vol]100 mg/dLHigh 74-99[facility] on above:Order Comment: Specimen Type: BLOOD SPECIMENOrdering Facility: [facility] Address:[address] [place], [place] [address]Result Comment: The [place] Diabetes Association (ADA) provides guidance for cutoff [...] unequivocal hyperglycemia, results should be confirmed by repeattesting. In a patient with classic symptoms of hyperglycemia or hyperglycemic crisis, random plasmaglucose results greater than or equal to 200 mg/dL meet the criteria for diagnosis of diabetes.Reference: Standards of Medical Care in Diabetes 2016, [place] Diabetes Association. Diabetes Care. 2016.39(Suppl 1).Performed By: #### 34801-6 ####[facility] LABIA [id number] [place] [address] [place] AMERICAPotassium [Moles/Vol]5.0 mmol/L Normal3.7-5.1CSt. [facility] on above:Order Comment: Specimen Type: BLOOD SPECIMENOrdering Facility: [facility] Address:[address] [place], [place] [address]Performed By: #### 09336-6 ####[facility] [id number] [place] [address] [place] AMERICAProtein [Mass/Vol]5.0 g/dLLow6.3-8.0[facility] on above:Order Comment: Specimen Type: BLOOD SPECIMENOrdering Facility: [facility] Address:[address] [place], [place] [address]Performed By: #### 48516-5 ####[facility] LABCLIA [id number] [place] [id number] [place] Sodium [Moles/Vol]139 mmol/POacsij543-008VrfcpeptuSelect Medical Specialty Hospital - Cleveland-FairhillComment on above:Order Comment: Specimen Type: BLOOD SPECIMENOrdering Facility: [facility] Address:[address] [place], [place] [address]Performed By: #### 83775-5 ####[facility] LABCLIA [id number] [place] [address] [place] AMERICAUrea nitrogen [Mass/Vol]32 mg/dLHigh9-24[facility]-FairhillComselect specialty hospital-[facility] on above:Order Comment: Specimen Type: BLOOD SPECIMENOrdering Facility: [facility] Address:[address] [place], [place] [address]Performed By: #### 20700- 8 ####[facility] LABCLIA [id number] [place] [address] [place] TURKMENUTRITIONon 04-83-2495HSUNNGZUX NormalSelect Medical Specialty Hospital - [facility]-FairhillTHERAPY NTon 18-69-2154CAIGBRH NTNormalCSumma Health Akron CampusTYPE + SCREENon 71-22-2772AGNOJeippoKecfpjulx Clinic [place] Comment on above:Order Comment: Specimen Type: BLOOD SPECIMENOrdering Facility: [facility] Address:[address] [place] [address] Performed By: #### TSCR ####[facility] BANKCLIA [id number] [place] [id number] [place] OF AMERICAHISTORICAL AB SCR STATUSNegativeNormalCSumma Health Akron CampusComment on above:Order Comment: Specimen Type: BLOOD SPECIMENOrdering Facility: [facility] Address:[address] [place], [place] [address]Performed By: #### TSCR ####[facility] BLOOD BANKCLIA [id number] [place] [address] [place] AMERICARh Nom (Bld)PositiveNoWright-Patterson Medical Center on above:Order Comment: Specimen Type: BLOOD SPECIMENOrdering Facility: [facility] Address:[address] [place], [place] [address]Performed By: #### TSCR ####[facility] BLOOD BANKCLIA [id number] [place] [id number] [place] AMERICATYPE AND SCREEN EXPIRATION 06/26/2024 23:59NormalCSt. [facility] Hospital on above:Order Comment: Specimen Type: BLOOD SPECIMENOrdering Facility: [facility] Address:[address] [place], [place] [address]Performed By: #### TSCR ####[facility] BLOOD BANKCLIA [id number] [address] STATES OF HENRY COUNTY HOSPITALXR ABDOMEN 1V SUPINEon 08-99-4151TE ABDOMEN 1V SUPINENormal [facility] CenterIED HEALTHon 70-29-7103NIVINZ HEALTHNoSelect Medical Specialty Hospital - TrumbullCASE MANAGEMon 66-71-0075TXYK MANAGEMNormalThe Surgical [facility] panel Auto (Bld)on 15-46-6379Ilimrlsucpe distribution width (RBC) [Ratio]14.6 %Iufrfs53.5-15.0[facility] on above:Order Comment: Specimen Type: BLOOD SPECIMENOrdering Facility: [facility] Address:[address] [place], [place] [address]Performed By: #### 94205- 2 ####[facility] LABCLIA [id number] [address] STATES OF HENRY COUNTY HOSPITALHematocrit (Bld) [Volume fraction]25.4 %Low39.0-51.0[facility] on above:Order Comment: Specimen Type: BLOOD SPECIMENOrdering Facility: [facility] Address:[address] [place], [place] [address]Performed By: #### 73156- 2 ####[facility] LABCLIA [id number] [address]ETHemoglobin (Bld) [Mass/Vol]7.8 g/dLLow13.0-17.0[facility] on above:Order Comment: Specimen Type: BLOOD SPECIMENOrdering Facility: [facility] Address:[address] [place], [place] [address]Performed By: #### 25630-1 ####[facility] LABIA [id number] [address] (RBC) [Entitic mass]29.7 pg Nsyogi08.0-34.0[facility] on above:Order Comment: Specimen Type: BLOOD SPECIMENOrdering Facility: [facility] Address:[address] [place], [place] [address]Performed By: #### 70947-7 ####[facility] LABIA [id number] [address]HC (RBC) [Mass/Vol]30.7 g/dL Zvvwbk64.5-36.0[facility] on above:Order Comment: Specimen Type: BLOOD SPECIMENOrdering Facility: [facility] Address:[address] [place], [place] [address]Performed By: #### 51868-1 ####[facility] LABIA [id number] [address]V (RBC) [Entitic vol]96.6 fL Aeiksq23.0-100.0[facility] on above:Order Comment: Specimen Type: BLOOD SPECIMENOrdering Facility: [facility] Address:[address] [place], [place] [address]Performed By: #### 99903-8 ####[facility] LABIA [id number] [address]ucleated RBC (Bld) [#/Vol]0.02 10*3/uLHigh<0.01[facility] on above:Order Comment: Specimen Type: BLOOD SPECIMENOrdering Facility: [facility] Address:[address] [place], [place] [address]Performed By: #### 19129-2 ####[facility] LABCLIA [id number] [place] [address] [place] AMERICAPlatelet mean volume (Bld) [Entitic vol]11.0 fLNormal9.0-12.7CSt. [facility] on above: Order Comment: Specimen Type: BLOOD SPECIMENOrdering Facility: [facility] Address:[address] [place], [place] [address]Performed By: #### 12660- 2 ####[facility] LABCLIA [id number] [place] [address] [place] AMERICAPlatelets (Bld) [#/Vol]129 10*3/wEQhz102-014MbupzexxdKettering Health Behavioral Medical Center on above:Order Comment: Specimen Type: BLOOD SPECIMENOrdering Facility: [facility] Address:[address] [place], [place] [address]Result Comment: Results checked and verified.No clot detected.Performed By: #### 45916-4 ####[facility] LABCLIA [id number] [place] [address] [place] AMERICARBC (Bld) [#/Vol]2.63 10*6/uLLow4.20-6.00[facility] on above:Order Comment: Specimen Type: BLOOD SPECIMENOrdering Facility: [facility] Address:[address] [place], [place] [address]Performed By: #### 18392-9 ####[facility] LABCLIA [id number] [place] [address] [place] WBC (Bld) [#/Vol]10.58 10*3/uLNormal3.70-11.00[facility] on above:Order Comment: Specimen Type: BLOOD SPECIMENOrdering Facility: [facility] Address:[address] [place], [place] [address] Performed By: #### 62050-5 ####[facility] LABCLIA [id number] [address] [address] [place] CNDSon 94-33-2548UDMXKprsklDgmvynegw Clinic ClevelandComprehensive metabolic 2000 panelon 98-58-5076Zsnjmwl [Mass/Vol]2.9 g/dLLow3.9-4.9CSt. [facility] on above:Order Comment: Specimen Type: BLOOD SPECIMENOrdering Facility: [facility] Address:[address] [place], [place] [address]Performed By: #### 82561-3, 35541-6 ####[facility] LABCLIA [id number] [place] [address] [place] [Catalytic activity/Vol]46 U/DRutguz92-725GvpnycfoqSelect [facility] [place] Comment on above:Order Comment: Specimen Type: BLOOD SPECIMENOrdering Facility: [facility] Address:[address] [place] [address] Performed By: #### [id number], 16657-2 ####[facility]CLIA [id number] [place] [address] [place] ALT [Catalytic activity/Vol]18 U/XSrwitc26-58JwhkzgrqdKettering Health Behavioral Medical Center on above:Order Comment: Specimen Type: BLOOD SPECIMENOrdering Facility: [facility] Address:[address] [place], [place] [id number] Performed By: #### 09801-2, 75638-3 ####[facility] [id number] [place] [id number] [place] Anion gap [Moles/Vol]10 mmol/LNormal8-15[facility]hillComselect [facility] on above:Order Comment: Specimen Type: BLOOD SPECIMENOrdering Facility: [facility] Address:[address] [place], [place] [address]Performed By: #### 86964-2, 34974-5 ####[facility]CL[facility] [id number] [place] [address] [place] AMERICAAST [Catalytic activity/Vol]22 U/DBbqubh39-80DgnnfjmugKettering Health Behavioral Medical Center on above:Order Comment: Specimen Type: BLOOD SPECIMENOrdering Facility: [facility] Address:[address] [place], [place] [address]Performed By: #### 39505- 8, 15774-1 ####[facility] [id number] [address] [place] [address] [place] AMERICABilirubin [Mass/Vol]0.5 mg/dLNormal0.2-1.3CSt. [facility] on above:Order Comment: Specimen Type: BLOOD SPECIMENOrdering Facility: [facility] Address:[address] [place], [place] [address]Performed By: #### 51811-5, 62166-6 ####[facility] [id number] [address] STATES OF AMERICACalcium [Mass/Vol]8.3 mg/dLLow 8.5-10.2CSt. [facility] on above:Order Comment: Specimen Type: BLOOD SPECIMENOrdering Facility: [facility] Address:[address] [place], [place] [address]Performed By: #### 70224-3, 87013-3 ####[facility]CL[facility] [id number] [place] [address] [place] AMERICAChloride [Moles/Vol]100 mmol/RXjwhde20-693 [facility] on above:Order Comment: Specimen Type: BLOOD SPECIMENOrdering Facility: [facility] Address:[address] [place], [place] [address]Performed By: #### 67432-8, 77950-8 ####[facility] [id number] [place] [address] [place] AMERICACO2 [Moles/Vol]28 mmol/WWtpmtc32-78OhcqyadxzSelect [facility] Comment on above:Order Comment: Specimen Type: BLOOD SPECIMENOrdering Facility: [facility] Address:[address] [place] [address] Performed By: #### 60362-9, ####[facility] [id number] [place] [address] [place] Creatinine [Mass/Vol]1.73 mg/dLHigh0.73-1.22[facility]-FairhillComment on above:Order Comment: Specimen Type: BLOOD SPECIMENOrdering Facility: [facility] Address:[address] [place], [place] [address]Performed By: #### 30796-3, ####[facility]IA [id number] [place] [address] [place] [facility] HOSPITALCreatinine and Glomerular filtration rate.predicted panel (S/P/Bld)40 mL/min/1.73m???Low>=60 [facility]-FairhillComment on above:Order Comment: Specimen Type: BLOOD SPECIMENOrdering Facility: [facility] Address:[address] [place], [place] [address]Result Comment: Estimated Glomerular Filtration Rate (eGFR) is calculated using the 2020 CKD-EPI creatinine equation. This equation utilizes serum creatinine, sex, and age as parameters. The creatinine assay has traceable calibration to isotope dilution-mass spectrometry. Refer to KDIGO guidelines for clinical interpretation. In patients with unstable renal function, e.g. those with acute kidney injury, the eGFR may not accurately reflect actual GFR.Performed By: #### 99561-8, ####[facility] LABIA [id number] [place] [address] [place] AMERICAGlucose [Mass/Vol]89 mg/qQYvzulc30-88KfebfdrfbSelect Medical Specialty [facility] Comment on above:Order Comment: Specimen Type: BLOOD SPECIMENOrdering Facility: [facility] Address:[facility] [place], [place] [id number] Comment: The [place] Diabetes Association (ADA) provides guidance for cutoff values for fasting glucose and random glucose. The ADA defines fasting as no caloric intake for at least 8 hours. Fasting plasma glucose results between 100 to 125 mg/dL indicate increased risk for diabetes (prediabetes).Fasting plasma glucose results greater than or equal to 126 mg/dL meet the criteria for diagno sis of diabetes. In the absence of unequivocal hyperglycemia, results should be confirmed by repeattesting. In a patient with classic symptoms of hyperglycemia or hyperglycemic crisis, random plasmaglucose results greater than or equal to 200 mg/dL meet the criteria for diagnosis of diabetes.Reference: Standards of Medical Care in Diabetes 2016, [place] Diabetes Association. Diabetes Care. 2016.39(Suppl 1).Performed By: #### 59979-9, ####[facility] [id number] [place] [address] [place] AMERICAPotassium [Moles/Vol]4.0 mmol/LNormal3.7-5.1CSt. [facility] on above:Order Comment: Specimen Type: BLOOD SPECIMENOrdering Facility: [facility] Address:[address] [place], [place] [address]Performed By: #### 07423-1, ####[facility] LABIA [id number] [place] [id number] [place] AMERICAProtein [Mass/Vol]5.1 g/dLLow6.3-8.0[facility] on above:Order Comment: Specimen Type: BLOOD SPECIMENOrdering Facility: [facility] Address:[address] [place], [place] [address]Performed By: #### 53734-0, ####[facility]CL[facility] [id number] [place] [id number] [place] AMERICASodium [Moles/Vol]138 mmol/FDmdbyg572-780NbptzfrvmKettering Health Behavioral Medical Center on above:Order Comment: Specimen Type: BLOOD SPECIMENOrdering Facility: [facility] Address:[address] [place], [place] [id number] By: #### 44346-1, 62512-7 ####[facility] [id number] [place] [id number] [place] AMERICAUrea nitrogen [Mass/Vol]30 mg/dL High9-24[facility] on above:Order Comment: Specimen Type: BLOOD SPECIMENOrdering Facility: [facility] Address:[address] [place], [place] [address]Performed By: #### 07454-5, 34274-0 ####[facility] [id number] [place] [address] [place] AMERICAECG COMPLETEon 92-08-1662HGW COMPLETENormal [facility]-FairhillMagnesium SerPl-mCncon 92-47-5741Tlttoulir [Mass/Vol] 2.1 mg/dLNormal1.7-2.3CSumma Health Akron CampusComselect specialty hospital-[facility] on above:Order Comment: Specimen Type: BLOOD SPECIMENOrdering Facility: [facility] Address:[address] [place], [place] [address]Performed By: #### 77379-9, ####[facility]CL[facility] [id number] [place] [address] [place] AMERICAPT EDon 81-92-6295LK EDNormal [facility]-FairhillTHERAPY NTon 92-13-0554EFDJJYF NTNormalCSumma Health Akron CampusTHERAPY NTNormalCSumma Health Akron CampusTHERAPY NTNormal [facility]-FairhillXR CHEST 1V FRONTAL PORTon 91-97-0782CJ CHEST 1V FRONTAL PORTNormalCSumma Health Akron CampusCB panel Auto (Bld)on 06-21-2024 Erythrocyte distribution width (RBC) [Ratio]14.9 %Xhujch83.5-15.0[facility] on above:Order Comment: Specimen Type: BLOOD SPECIMENOrdering Facility: [facility] Address:[address] [place], [place] [address]Performed By: #### 39150-1 ####[facility] LABIA [id number] [place] [address] [place] AMERICAHematocrit (Bld) [Volume fraction]24.8 %Low39.0-51.0[facility] on above:Order Comment: Specimen Type: BLOOD SPECIMENOrdering Facility: [facility] Address:[address] [place], [place] [address]Performed By: #### 32562-1 ####[facility] LABIA [id number] [place] [address] [place] Hemoglobin (Bld) [Mass/Vol]8.0 g/dLLow13.0-17.0[facility] on above:Order Comment: Specimen Type: BLOOD SPECIMENOrdering Facility: [facility] Address:[address] [place] [address] Performed By: #### 73091-1 ####[facility] LABIA [id number] [place] [address] [place] MCH (RBC) [Entitic mass]30.4 reDetalq95.0-34.0[facility] on above:Order Comment: Specimen Type: BLOOD SPECIMENOrdering Facility: [facility] Address:[address] [place] [address] Performed By: #### 69624-0 ####[facility] LABIA [id number] [place] [address] [place] MCHC (RBC) [Mass/Vol]32.3 g/sPDtwuey76.5-36.0[facility] on above:Order Comment: Specimen Type: BLOOD SPECIMENOrdering Facility: [facility] Address:[address] [place] [address] Performed By: #### 09164-9 ####[facility] LABIA [id number] [place] [address] [place] MCV (RBC) [Entitic vol]94.3 cUNvxtep96.0-100.0[facility] on above:Order Comment: Specimen Type: BLOOD SPECIMENOrdering Facility: [facility] Address:[address] [place] [address] Performed By: #### 57401-1 ####[facility]IA [id number] [place] [address] [place] Nucleated RBC (Bld) [#/Vol]10*3/uLNormal<0.01[facility] on above:Order Comment: Specimen Type: BLOOD SPECIMENOrdering Facility: [facility] Address:[address] [place] [address] Performed By: #### 55909-8 ####[facility] [id number] [place] [address] [place] Platelet mean volume (Bld) [Entitic vol]11.1 fLNormal9.0-12.7CSt. [facility] on above:Order Comment: Specimen Type: BLOOD SPECIMENOrdering Facility: [facility] Address:[address] [place], [place] [address]Performed By: #### 16394-9 ####[facility] LABIA [id number] [place] [address] [place] Platelets (Bld) [#/Vol]107 10*3/pBRib631-998DsfyxazxcKettering Health Behavioral Medical Center on above:Order Comment: Specimen Type: BLOOD SPECIMENOrdering Facility: [facility] Address:[address] [place], [place] [address]Performed By: #### 85070-3 ####[facility]CL[facility] [id number] [place] [address] [place] AMERICARBC (Bld) [#/Vol]2.63 10*6/uLLow4.20-6.00[facility] on above:Order Comment: Specimen Type: BLOOD SPECIMENOrdering Facility: [facility] Address:[address] [place], [place] [address]Performed By: #### 77832-8 ####[facility]CL[facility] [id number] [place] [address] [place] AMERICAWBC (Bld) [#/Vol]13.59 10*3/uL High3.70-11.00[facility] on above:Order Comment: Specimen Type: BLOOD SPECIMENOrdering Facility: [facility] Address:[address] [place], [place] [address]Performed By: #### 46865-9 ####[facility]CL[facility] [id number] [place] [address] [place] AMERICAComprehensive metabolic 2000 panelon 66-13-1774Qxuusnm [Mass/Vol]3.1 g/dLLow3.9-4.9CSt. [facility] on above:Order Comment: Specimen Type: BLOOD SPECIMENOrdering Facility: [facility] Address:[address] [place], [place] [address]Performed By: #### 51997- 8 ####[facility]CL[facility] [id number] [place] [address] [place] AMERICAALP [Catalytic activity/Vol]41 U/IGjyxsz36-057ZmwkfufivKettering Health Behavioral Medical Center on above:Order Comment: Specimen Type: BLOOD SPECIMENOrdering Facility: [facility] Address:[address] [place], [place] [address]Performed By: #### 74467-9 ####[facility]CL[facility] [id number] [place] [id number] [place] AMERICAALT [Catalytic activity/Vol]18 U/SXtevdz94-84OeoaljvcsKettering Health Behavioral Medical Center on above:Order Comment: Specimen Type: BLOOD SPECIMENOrdering Facility: [facility] Address:[address] [place], [place] [address]Performed By: #### 05496-7 ####[facility]CL[facility] [id number] [place] [address] [place] AMERICAAnion gap [Moles/Vol]11 mmol/LNormal8-15[facility] on above:Order Comment: Specimen Type: BLOOD SPECIMENOrdering Facility: [facility] Address:[address] [place], [place] [address]Performed By: #### 71257-9 ####[facility]CL[facility] [id number] [place] [address] [place] AST [Catalytic activity/Vol]26 U/LLtjngw56-89DoexjvbxqKettering Health Behavioral Medical Center on above:Order Comment: Specimen Type: BLOOD SPECIMENOrdering Facility: [facility] Address:[address] [place] [address] Performed By: #### 78321-1 ####[facility]CL[facility] [id number] [place] [address] [place] Bilirubin [Mass/Vol]0.5 mg/dLNormal0.2-1.3CSt. [facility] on above:Order Comment: Specimen Type: BLOOD SPECIMENOrdering Facility: [facility] Address:[address] [place], [place] [address]Performed By: #### 73978-7 ####[facility]CL[facility] [id number] [place] [address] [place] AMERICACalcium [Mass/Vol]8.6 mg/dLNormal8.5-10.2CSt. [facility] on above:Order Comment: Specimen Type: BLOOD SPECIMENOrdering Facility: [facility] Address:[address] [place], [place] [address]Performed By: #### 25875-2 ####[facility]CL[facility] [id number] [place] [address] [place] AMERICAChloride [Moles/Vol]102 mmol/L Knegeb47-966SojsfyudyKettering Health Behavioral Medical Center on above:Order Comment: Specimen Type: BLOOD SPECIMENOrdering Facility: [facility] Address:[address] [place], [place] [address]Performed By: #### 01229-7 ####[facility]CL[facility] [id number] [place] [address] [place] AMERICACO2 [Moles/Vol]25 mmol/ATfqohx62-97CwqgnnmytKettering Health Behavioral Medical Center on above:Order Comment: Specimen Type: BLOOD SPECIMENOrdering Facility: [facility] Address:[address] [place], [place] [address]Performed By: #### 11559-3 ####[facility]IA [id number] [place] [address] [place] Creatinine [Mass/Vol]1.79 mg/dLHigh0.73-1.22[facility] on above:Order Comment: Specimen Type: BLOOD SPECIMENOrdering Facility: [facility] Address:[address] [place], [place] [address]Performed By: #### 72560-2 ####[facility] LABIA [id number] [place] [address] [place] [facility] COUNTY HOSPITALCreatinine and Glomerular filtration rate.predicted panel (S/P/Bld)39 mL/min/1.73m???Low>=60 [facility] on above:Order Comment: Specimen Type: BLOOD SPECIMENOrdering Facility: [facility] Address:[address] [place], [place] [address]Result Comment: Estimated Glomerular Filtration Rate (eGFR) is calculated using the 202 CKD-EPI creatinine equation. This equation utilizes serum creatinine, sex, and age as parameters. The creatinine assay has traceable calibration to isotope dilution-mass spectrometry. Refer to KDIGO guidelines for clinical interpretation. In patients with unstable renal function, e.g. those with acute kidney injury, the eGFR may not accurately reflect actual GFR.Performed By: #### 03581-0 ####[facility]CL[facility] [id number] [place] [address] [place] AMERICAGlucose [Mass/Vol]115 mg/sDAzwo48-79CtsmnzmvzSelect Medical Specialty Hospital [facility]-FairhillComment on above:Order Comment: Specimen Type: BLOOD SPECIMENOrdering Facility: [facility] Address:[address] [place], [place] [address]Result Comment: The [place] Diabetes Association (ADA) provides guidance for cutoff [...] unequivocal hyperglycemia, results should be confirmed by repeattesting. In a patient with classic symptoms of hyperglycemia or hyperglycemic crisis, random plasmaglucose results greater than or equal to 200 mg/dL meet the criteria for diagnosis of diabetes.Reference: Standards of Medical Care in Diabetes 2016, [place] Diabetes [employer]. Diabetes Care. 2016.39(Suppl 1).Performed By: #### 30218-3 ####[facility] [id number] [place] [address] [place] AMERICAPotassium [Moles/Vol]4.5 mmol/LNormal3.7-5.1CSumma Health [facility] Campus Comment on above:Order Comment: Specimen Type: BLOOD SPECIMENOrdering Facility: [facility] Address:[address] [place] [address] Performed By: #### 45004-9 ####[facility] [id number] [place] [address] [place] Protein [Mass/Vol]4.9 g/dLLow6.3-8.0[facility]-FairhillComselect specialty hospital-[facility] on above: Order Comment: Specimen Type: BLOOD SPECIMENOrdering Facility: [facility] Address:[address] [place], [place] [address]Performed By: #### 14835- 8 ####[facility] [id number] [place] [id number] [place] AMERICASodium [Moles/Vol]138 mmol/L Mtwjly895-033YmaaktwaxKettering Health Behavioral Medical Center on above:Order Comment: Specimen Type: BLOOD SPECIMENOrdering Facility: [facility] Address:[address] [place], [place] [address]Performed By: #### 97672-4 ####[facility] [id number] [place] [address] [place] AMERICAUrea nitrogen [Mass/Vol]24 mg/dLNormal9-24[facility] on above:Order Comment: Specimen Type: BLOOD SPECIMENOrdering Facility: [facility] Address:[address] [place], [place] [address]Performed By: #### 40217-5 ####[facility] [id number] [place] [address] [place] AMERICAGas and Carbon monoxide panel (BldV)on 71-87-2027Irsu excess Calc (BldV) [Moles/Vol]3 mmol/LHigh0-2CSt. [facility] on above:Order Comment: Specimen Type: VENOUS BLOOD SPECIMENOrdering Facility: [facility] Address: [address] [place], [place] [address]Performed By: #### 39214-5 ####[facility]IA [id number] [place] [address] [place] AMERICABody amnkwqgeejd30.6 [degF]NormalKettering Health Behavioral Medical Center on above:Order Comment: Specimen Type: VENOUS BLOOD SPECIMENOrdering Facility: [facility] Ad dress: [address] [place], [place] [address]Performed By: #### 37003-6 ####[facility]IA [id number] [place] [address] [place] AMERICACalcium.ionized (Bld) [Mass/Vol] 1.17 mmol/LNormal1.08-1.30[facility] on above:Order Comment: Specimen Type: VENOUS BLOOD SPECIMENOrdering Facility: [facility] Address: [address] [place], [place] [id number] By: #### 68507-4 ####[facility] [id number] [place] [address] [place] AMERICACalcium.ionized adjusted to pH 7.4 (BldA) [Moles/Vol]1.15 mmol/LNormal1.08-1.30[facility] on above:Order Comment: Specimen Type: VENOUS BLOOD SPECIMENOrdering Facility: [facility] Address: [address] [place], [place] [address]Performed By: #### 50104-8 ####[facility] LABIA [id number] [address] STATES OF HENRY COUNTY HOSPITALCarboxyhemoglobin (BldV) [Mass fraction]1.4 %Normal0.0-2.0[facility] on above:Order Comment: Specimen Type: VENOUS BLOOD SPECIMENOrdering Facility: [facility] Address: [address] [place], [place] [address]Result Comment: Carboxyhemoglobin Reference Range for Smokers: 2.0-8.0%Performed By: #### 68130-9 ####[facility] [id number] [place] [address] [place] AMERICACO2 (BldV) [Partial pressure]50 mm[Hg]Uuiojh09-61KiypdttgfKettering Health Behavioral Medical Center on above:Order Comment: Specimen Type: VENOUS BLOOD SPECIMENOrdering Facility: [facility] Address: [address] [place], [place] [address]Performed By: #### 56599-4 ####[facility] [id number] [place] [address] [place] AMERICAGlucose [Mass/Vol]116 mg/yKZgii48-977ZxpmuqfuzKettering Health Behavioral Medical Center on above:Order Comment: Specimen Type: VENOUS BLOOD SPECIMENOrdering Facility: [facility] Address: [address] [place] [address] Performed By: #### 71700-1 ####[facility]CL[facility] [id number] [place] [address] [place] HCO3 (Bld) [Moles/Vol]28 mmol/XHpoxne57-68BoesdduwyKettering Health Behavioral Medical Center on above:Order Comment: Specimen Type: VENOUS BLOOD SPECIMENOrdering Facility: [facility] Address: [address] [place] [address] Performed By: #### 41063-8 ####[facility]CL[facility] [id number] [place] [address] [place] Hematocrit (Bld) [Volume fraction]26.6 %Low39.0-51.0[facility] Comment on above:Order Comment: Specimen Type: VENOUS BLOOD SPECIMENOrdering Facility: [facility] Address: [address] [place], [place] [address]Performed By: #### 62289-8 ####[facility] [id number] [place] [address] [place] Hemoglobin (Bld) [Mass/Vol]8.6 g/dLLow13.0-17.0[facility] on above:Order Comment: Specimen Type: VENOUS BLOOD SPECIMENOrdering Facility: [facility] Address: [address] [place] [address] Performed By: #### 50029-8 ####[facility] [id number] [place] [address] [place] Lactate [Moles/Vol]0.9 mmol/LNormal0.5-2.2CSumma Health Akron CampusComment on above:Order Comment: Specimen Type: VENOUS BLOOD SPECIMENOrdering Facility: [facility] Address: [address] [place] [address] Performed By: #### 16333-1 ####[facility] [id number] [place] [address] [place] Methemoglobin (Bld) [Mass fraction]0.6 %Normal0.0-1.5CSumma Health [facility] Campus Comment on above:Order Comment: Specimen Type: VENOUS BLOOD SPECIMENOrdering Facility: [facility] Address: [address] [place], [place] [address]Performed By: #### 41001-5 ####[facility] [id number] [place] [address] [place] O2 THERAPYNC = Nasal CannulaNormalCSumma Health Akron CampusComselect specialty hospital-[facility] on above: Order Comment: Specimen Type: VENOUS BLOOD SPECIMENOrdering Facility: [facility] Address: [address] [place], [place] [address]Performed By: #### 69998-8 ####[facility] [id number] [place] [address] [place] AMERICAOxygen (BldV) [Partial pressure]29 mm[Hg]Uju11-60IprywjkxxSelect Medical Specialty Hospital - Cleveland-FairhillComment on above:Order Comment: Specimen Type: VENOUS BLOOD SPECIMENOrdering Facility: [facility] Address: [address] [place], [place] [address]Performed By: #### 56478-8 ####[facility] [id number] [address] STATES OF HENRY COUNTY HOSPITALOxygen saturation in Venous blood43 %[id number] Medical Specialty Hospital - [place]-FairhillComselect specialty hospital-[place] on above:Order Comment: Specimen Type: VENOUS BLOOD SPECIMENOrdering Facility: [facility] Address: [address] [place], [place] [address]Performed By: #### [id number] ####[facility] LABCLIA [id number] [place] [address] [place] STATES OF AMERICAOxyhemoglobin (BldV) [Mass fraction]42 %Uqb62-94VqqaaleugKettering Health Behavioral Medical Center on above:Order Comment: Specimen Type: VENOUS BLOOD SPECIMENOrdering Facility: [facility] Address: [address] [place], [place] [address]Performed By: #### 45222-8 ####[facility] LABIA [id number] [place] [address] [place] AMERICApH (BldV)7.38 [pH] Normal7.32-7.42[facility] on above:Order Comment: Specimen Type: VENOUS BLOOD SPECIMENOrdering Facility: [facility] Address: [address] [place], [place] [address]Performed By: #### 23580-5 ####[facility] [id number] [place] [address] [place] AMERICAPotassium [Moles/Vol] 4.0 mmol/LNormal3.5-5.0[facility] on above:Order Comment: Specimen Type: VENOUS BLOOD SPECIMENOrdering Facility: [facility] Address: [address] [place], [place] [address]Performed By: #### 00238-4 ####[facility] [id number] [place] [address] [place] AMERICASodium [Moles/Vol]135 mmol/HJxz506-721ThsodpfenKettering Health Behavioral Medical Center on above:Order Comment: Specimen Type: VENOUS BLOOD SPECIMENOrdering Facility: [facility] Address: [address] [place], [place] [address]Performed By: #### 22916-8 ####[facility] [id number] [place] [address] [place] AMERICABase excess Calc (BldV) [Moles/Vol]3 mmol/LHigh0-2CSt. [facility] Hospital on above: Order Comment: Specimen Type: VENOUS BLOOD SPECIMENOrdering Facility: [facility] Address: [address] [place], [place] [address]Performed By: #### 88981-3 ####[facility] [id number] [place] [id number] [place] AMERICABody kimfzomufrd30.6 [degF]NormalKettering Health Behavioral Medical Center on above:Order Comment: Specimen Type: VENOUS BLOOD SPECIMENOrdering Facility: [facility] Ad dress: [address] [place], [place] [address]Performed By: #### 14132-2 ####[facility] LABCLIA [id number] [place] [address] [place] AMERICACalcium.ionized (Bld) [Mass/Vol] 1.22 mmol/LNormal1.08-1.30[facility] on above:Order Comment: Specimen Type: VENOUS BLOOD SPECIMENOrdering Facility: [facility] Address: [address] [place], [place] [address]Performed By: #### 98349-7 ####[facility] LABCLIA [id number] [place] [address] [place] AMERICACalcium.ionized adjusted to pH 7.4 (BldA) [Moles/Vol]1.19 mmol/LNormal1.08-1.30[facility] on above:Order Comment: Specimen Type: VENOUS BLOOD SPECIMENOrdering Facility: [facility] Address: [address] [place], [place] [address]Performed By: #### 14380-4 ####[facility] [id number] [place] [address] [place] AMERICACarboxyhemoglobin (BldV) [Mass fraction]1.5 %Normal0.0-2.0[facility] on above:Order Comment: Specimen Type: VENOUS BLOOD SPECIMENOrdering Facility: [facility] Address: [address] [place], [place] [address]Result Comment: Carboxyhemoglobin Reference Range for Smokers: 2.0-8.0%Performed By: #### 95567-1 ####[facility] [id number] [place] [address] [place] AMERICACO2 (BldV) [Partial pressure]52 mm[Hg]Thskyx02-43Wpnwmfayl Clinic ClevelandComment on above:Order Comment: Specimen Type: VENOUS BLOOD SPECIMENOrdering Facility: [facility] Address: [address] [place], [place] [address]Performed By: #### 81915-5 ####[facility] LABCLIA [id number] [place] [address] [place] AMERICAGlucose [Mass/Vol]118 mg/pNStxx88-220LsqytnatiSelect Medical Specialty Hospital - Cleveland-FairhillComment on above:Order Comment: Specimen Type: VENOUS BLOOD SPECIMENOrdering Facility: [facility] Address: [address] [place] [address] Performed By: #### 25027-7 ####[facility] LABCLIA [id number] [place] [address] [place] HCO3 (Bld) [Moles/Vol]28 mmol/OUovvlv39-96BrndfnehaKettering Health Behavioral Medical Center on above:Order Comment: Specimen Type: VENOUS BLOOD SPECIMENOrdering Facility: [facility] Address: [address] [place] [address] Performed By: #### 63775-9 ####[facility] LABCLIA [id number] [place] [address] [place] Hematocrit (Bld) [Volume fraction]25.8 %Low39.0-51.0[facility] Comment on above:Order Comment: Specimen Type: VENOUS BLOOD SPECIMENOrdering Facility: [facility] Address: [address] [place], [place] [address]Performed By: #### 36321-8 ####[facility] LABCLIA [id number] [place] [address] [place] Hemoglobin (Bld) [Mass/Vol]8.3 g/dLLow13.0-17.0[facility] on above:Order Comment: Specimen Type: VENOUS BLOOD SPECIMENOrdering Facility: [facility] Address: [address] [place] [address] Performed By: #### 93116-6 ####[facility] LABCLIA [id number] [place] [address] [place] Lactate [Moles/Vol]0.8 mmol/LNormal0.5-2.2CSt. [facility] Hospital on above:Order Comment: Specimen Type: VENOUS BLOOD SPECIMENOrdering Facility: [facility] Address: [address] [place] [address] Performed By: #### 10792-2 ####[facility] [id number] [place] [address] [place] LITERS2 Liters/minNormalClevelMarymount Hospital on above:Order Comment: Specimen Type: VENOUS BLOOD SPECIMENOrdering Facility: [facility] Address: [address] [place], [place] [address]Performed By: #### 39765-1 ####[facility] [id number] [place] [address] [place] AMERICAMethemoglobin (Bld) [Mass fraction]0.6 %Normal0.0-1.5ClevelMarymount Hospital on above: Order Comment: Specimen Type: VENOUS BLOOD SPECIMENOrdering Facility: [facility] Address: [address] [place], [place] [address]Performed By: #### 15989-4 ####[facility] [id number] [place] [address] [place] AMERICAO2 THERAPYNC = Nasal CannulaNormalClevelMarymount Hospital on above:Order Comment: Specimen Type: VENOUS BLOOD SPECIMENOrdering Facility: [facility] Ad dress: [address] [place], [place] [address]Performed By: #### 46955-6 ####[facility] [id number] [place] [address] [place] AMERICAOxygen (BldV) [Partial pressure] 35 mm[Hg]Fgyyvz74-98MhfpvcanuKettering Health Behavioral Medical Center on above:Order Comment: Specimen Type: VENOUS BLOOD SPECIMENOrdering Facility: [facility] Address: [address] [place], [place] [address]Performed By: #### 24251-1 ####[facility] [id number] [place] [address] [place] AMERICAOxygen saturation in Venous blood57 %Bhj92-53ZdidcwaqqKettering Health Behavioral Medical Center on above:Order Comment: Specimen Type: VENOUS BLOOD SPECIMENOrdering Facility: [facility] Address: [address] [place], [place] [address]Performed By: #### 79007-0 ####[facility] [id number] [address] AMERICAOxyhemoglobin (BldV) [Mass fraction]56 %Jdc33-87NzweycqczKettering Health Behavioral Medical Center on above:Order Comment: Specimen Type: VENOUS BLOOD SPECIMENOrdering Facility: [facility] Address: [address] [place], [place] [address]Performed By: #### 10731-9 ####[facility] [id number] [address] STATES OF AMERICApH (BldV)7.35 [pH] Normal7.32-7.42[facility] on above:Order Comment: Specimen Type: VENOUS BLOOD SPECIMENOrdering Facility: [facility] Address: [address] [place], [place] [address]Performed By: #### 43490-6 ####[facility] [id number] [place] [address] [place] AMERICAPotassium [Moles/Vol] 4.2 mmol/LNormal3.5-5.0[facility] on above:Order Comment: Specimen Type: VENOUS BLOOD SPECIMENOrdering Facility: [facility] Address: [address] [place], [place] [address]Performed By: #### 41715-0 ####[facility] [id number] [place] [address] [place] AMERICASodium [Moles/Vol]135 mmol/EZrw845-145GnjaeklexKettering Health Behavioral Medical Center on above:Order Comment: Specimen Type: VENOUS BLOOD SPECIMENOrdering Facility: [facility] Address: [address] [place], [place] [address]Performed By: #### 57442-5 ####[facility] LABCLIA [id number] [place] [address] [place] AMERICABase excess Calc (BldV) [Moles/Vol]3 mmol/LHigh0-2CSt. [facility] Hospital on above: Order Comment: Specimen Type: VENOUS BLOOD SPECIMENOrdering Facility: [facility] Address: [address] [place], [place] [address]Performed By: #### 44691-4 ####[facility] [id number] [place] [address] [place] AMERICABody vzaekgugirn01.6 [degF]NormalKettering Health Behavioral Medical Center on above:Order Comment: Specimen Type: VENOUS BLOOD SPECIMENOrdering Facility: [facility] Ad dress: [address] [place], [place] [address]Performed By: #### 99710-5 ####[facility] [id number] [place] [address] [place] AMERICACalcium.ionized (Bld) [Mass/Vol] 1.21 mmol/LNormal1.08-1.30[facility] on above:Order Comment: Specimen Type: VENOUS BLOOD SPECIMENOrdering Facility: [facility] Address: [address] [place], [place] [address]Performed By: #### 69014-6 ####[facility] [id number] [place] [address] [place]ICACalcium.ionized adjusted to pH 7.4 (BldA) [Moles/Vol]1.18 mmol/LNormal1.08-1.30[facility] on above:Order Comment: Specimen Type: VENOUS BLOOD SPECIMENOrdering Facility: [facility] Address: [address] [place], [place] [address]Performed By: #### 43432-6 ####[facility] LABCLIA [id number] [address] STATES OF [facility] COUNTY HOSPITALCarboxyhemoglobin (BldV) [Mass fraction]1.6 %Normal0.0-2.0[facility] on above:Order Comment: Specimen Type: VENOUS BLOOD SPECIMENOrdering Facility: [facility] Address: [address] [place], [place] [address]Result Comment: Carboxyhemoglobin Reference Range for Smokers: 2.0-8.0%Performed By: #### 28359-0 ####[facility] LABCLIA [id number] [place] [address] [place] AMERICACO2 (BldV) [Partial pressure]53 mm[Hg]Kbjklr97-39BmtuaygioKettering Health Behavioral Medical Center on above:Order Comment: Specimen Type: VENOUS BLOOD SPECIMENOrdering Facility: [facility] Address: [address] [place], [place] [address]Performed By: #### 31133-3 ####[facility] LABCLIA [id number] [place] [address] [place] AMERICAGlucose [Mass/Vol]115 mg/qIMpij25-582VqidyjflyKettering Health Behavioral Medical Center on above:Order Comment: Specimen Type: VENOUS BLOOD SPECIMENOrdering Facility: [facility] Address: [address] [place] [address] Performed By: #### 86923-3 ####[facility] LABCLIA [id number] [place] [address] [place] HCO3 (Bld) [Moles/Vol]29 mmol/ZKszy05-12VfzonvcbjKettering Health Behavioral Medical Center on above:Order Comment: Specimen Type: VENOUS BLOOD SPECIMENOrdering Facility: [facility] Address: [address] [place] [address] Performed By: #### 88787-8 ####[facility] LABCLIA [id number] [place] [address] [place] Hematocrit (Bld) [Volume fraction]25.2 %Low39.0-51.0[facility] Comment on above:Order Comment: Specimen Type: VENOUS BLOOD SPECIMENOrdering Facility: [facility] Address: [address] [place], [place] [address]Performed By: #### 39685-6 ####[facility] [id number] [place] [address] [place] Hemoglobin (Bld) [Mass/Vol]8.1 g/dLLow13.0-17.0[facility]-FairhillComment on above:Order Comment: Specimen Type: VENOUS BLOOD SPECIMENOrdering Facility: [facility] Address: [address] [place] [address] Performed By: #### 47336-3 ####[facility] [id number] [place] [address] [place] Lactate [Moles/Vol]0.8 mmol/LNormal0.5-2.2ClevelAtrium HealthComment on above:Order Comment: Specimen Type: VENOUS BLOOD SPECIMENOrdering Facility: [facility] Address: [address] [place] [address] Performed By: #### 75236-7 ####[facility] [id number] [place] [address] [place] LITERS2 Liters/minNormalCSumma Health Akron CampusComselect specialty hospital-[facility] on above:Order Comment: Specimen Type: VENOUS BLOOD SPECIMENOrdering Facility: [facility] Address: [address] [place], [place] [address]Performed By: #### 43805-3 ####[facility] [id number] [place] [address] [place] AMERICAMethemoglobin (Bld) [Mass fraction]0.7 %Normal0.0-1.5CSt. [facility] Hospital on above: Order Comment: Specimen Type: VENOUS BLOOD SPECIMENOrdering Facility: [facility] Address: [address] [place], [place] [address]Performed By: #### 34327-4 ####[facility] LABCLIA [id number] [place] [address] [place]O2 THERAPYNC = Nasal CannulaNormalCSt. [facility] Hospital on above:Order Comment: Specimen Type: VENOUS BLOOD SPECIMENOrdering Facility: [facility] Ad dress: [address] [place], [place] [address]Performed By: #### 60163-2 ####[facility] LABCL[facility] [id number] [place] [address] [place] AMERICAOxygen (BldV) [Partial pressure] 33 mm[Hg]Aey33-63UqdiljyrfKettering Health Behavioral Medical Center on above:Order Comment: Specimen Type: VENOUS BLOOD SPECIMENOrdering Facility: [facility] Address: [address] [place], [place] [address]Performed By: #### 50937-9 ####[facility] LABCLIA [id number] [place] [address] [place] AMERICAOxygen saturation in Venous blood54 %Zyc08-67ZnheesekzKettering Health Behavioral Medical Center on above:Order Comment: Specimen Type: VENOUS BLOOD SPECIMENOrdering Facility: [facility] Address: [address] [place], [place] [address]Performed By: #### 94514-0 ####[facility] LABCLIA [id number] [address] [address] [place] AMERICAOxyhemoglobin (BldV) [Mass fraction]53 %Uce09-11PcdsewajxKettering Health Behavioral Medical Center on above:Order Comment: Specimen Type: VENOUS BLOOD SPECIMENOrdering Facility: [facility] Address: [address] [place], [place] [address]Performed By: #### 57989-5 ####[facility] LABCLIA [id number] [place] [address] [place] AMERICApH (BldV)7.36 [pH] Normal7.32-7.42[facility] on above:Order Comment: Specimen Type: VENOUS BLOOD SPECIMENOrdering Facility: [facility] Address: [address] [place], [place] [address]Performed By: #### 57114-5 ####[facility] LABCLIA [id number] [place] [address] [place] AMERICAPotassium [Moles/Vol] 4.2 mmol/LNormal3.5-5.0[facility] on above:Order Comment: Specimen Type: VENOUS BLOOD SPECIMENOrdering Facility: [facility] Address: [address] [place], [place] [address]Performed By: #### 60804-6 ####[facility] [id number] [address] STATES OF H[facility] COUNTY HOSPITALSodium [Moles/Vol]135 mmol/ZBpq318-100TdmolmcxcKettering Health [facility]al [facility] on above:Order Comment: Specimen Type: VENOUS BLOOD SPECIMENOrdering Facility: [facility] Address: [address] [place], [place] [address]Performed By: #### 58078-8 ####[facility] [id number] [place] [address] [place] AMERICAXR CHEST 1V FRONTAL PORTon 04-23-2070XL CHEST 1V FRONTAL PORTNormalCAccess Hospital Dayton panel Auto (Bld)on 14-31-5423Ncexuwgpuoc distribution width (RBC) [Ratio]14.9 % Masziu54.5-15.0[facility] on above:Order Comment: Specimen Type: BLOOD SPECIMENOrdering Facility: [facility] Address:[address] [place], [place] [address]Performed By: #### 48631-1 ####[facility] LABCLIA [id number] [place] [address] [place] AMERICAHematocrit (Bld) [Volume fraction]26.7 %Low39.0-51.0[facility] on above:Order Comment: Specimen Type: BLOOD SPECIMENOrdering Facility: [facility] Address:[address] [place], [place] [address]Performed By: #### 18005- 2 ####[facility] LABCLIA [id number] [address] OF AMERICAHemoglobin (Bld) [Mass/Vol]8.6 g/dLLow13.0-17.0[facility] on above:Order Comment: Specimen Type: BLOOD SPECIMENOrdering Facility: [facility] Address:[address] [place], [place] [address]Performed By: #### 21373-8 ####[facility] LABCLIA [id number] [address]ETMCH (RBC) [Entitic mass]29.8 pg Vzxiap54.0-34.0[facility] on above:Order Comment: Specimen Type: BLOOD SPECIMENOrdering Facility: [facility] Address:[address] [place], [place] [address]Performed By: #### 56406-4 ####[facility] [id number] [address] OF [facility] COUNTY HOSPITALMCHC (RBC) [Mass/Vol]32.2 g/dL Fjgpql42.5-36.0[facility] on above:Order Comment: Specimen Type: BLOOD SPECIMENOrdering Facility: [facility] Address:[address] [place], [place] [address]Performed By: #### 59685-9 ####[facility] LABCLIA [id number] [address] OF HEN[facility] COUNTY HOSPITALMCV (RBC) [Entitic vol]92.4 fL Acnbkp28.0-100.0[facility] ClevelandComment on above:Order Comment: Specimen Type: BLOOD SPECIMENOrdering Facility: [facility] Address:[address] [place], [place] [address]Performed By: #### 01329-1 ####[facility] LABCLIA [id number] [place] [address] [place] AMERICANucleated RBC (Bld) [#/Vol] 10*3/uLNormal<0.01[facility] on above:Order Comment: Specimen Type: BLOOD SPECIMENOrdering Facility: [facility] Address:[address] [place], [place] [address]Performed By: #### 72497-6 ####[facility] [id number] [address] STATES OF AMERICAPlatelet mean volume (Bld) [Entitic vol]11.2 fLNormal9.0-12.7CSt. [facility] on above: Order Comment: Specimen Type: BLOOD SPECIMENOrdering Facility: [facility] Address:[address] [place], [place] [address]Performed By: #### 20232- 2 ####[facility] [id number] [place] [address] [place] AMERICAPlatelets (Bld) [#/Vol]128 10*3/qVHzj987-650LwhphtyrsKettering [facility] on above:Order Comment: Specimen Type: BLOOD SPECIMENOrdering Facility: [facility] Address:[address] [place], [place] [address]Result Comment: No clot detected.Results checked and verified.Performed By: #### 22555-5 ####[facility] [id number] [place] [address] [place] AMERICARBC (Bld) [#/Vol]2.89 10*6/uLLow4.20-6.00[facility] on above:Order Comment: Specimen Type: BLOOD SPECIMENOrdering Facility: [facility] Address:[address] [place], [place] [address]Performed By: #### 65744-6 ####[facility] LABCLIA [id number] [place] [address] [place] AMERICAWBC (Bld) [#/Vol]15.04 10*3/uLHigh3.70-11.00[facility] Comment on above:Order Comment: Specimen Type: BLOOD SPECIMENOrdering Facility: [facility] Address:[address] [place] [address] Performed By: #### 71706-9 ####[facility] LABCLIA [id number] [place] [address] [place] Comprehensive metabolic 2000 panelon 30-54-2454Hfbksfw [Mass/Vol]3.4 g/dLLow 3.9-4.9CSt. [facility] on above:Order Comment: Specimen Type: BLOOD SPECIMENOrdering Facility: [facility] Address:[address] [place], [place] [address]Performed By: #### 99427-8 ####[facility] LABCLIA [id number] [place] [address] [place] AMERICAALP [Catalytic activity/Vol]35 U/QUoq85-935UtducspwhSelect Medical Specialty [facility] - [facility]-FairhillComment on above:Order Comment: Specimen Type: BLOOD SPECIMENOrdering Facility: [facility] Address:[address] [place], [place] [address]Performed By: #### 97021-2 ####[facility] LABCLIA [id number] [place] [address] [place] ALT [Catalytic activity/Vol]23 U/TItxtpk36-08NfaaspcetKettering Health Behavioral [facility] Center on above:Order Comment: Specimen Type: BLOOD SPECIMENOrdering Facility: [facility] Address:[address] [place] [address] Performed By: #### 90450-8 ####[facility] LABCLIA [id number] [place] [address] [place] Anion gap [Moles/Vol]12 mmol/LNormal8-15[facility] on above:Order Comment: Specimen Type: BLOOD SPECIMENOrdering Facility: [facility] Address:[address] [place], [place] [address]Performed By: #### 18998-7 ####[facility] LABCLIA [id number] [place] [address] [place] AMERICAAST [Catalytic activity/Vol]50 U/MMjcu59-06QdmszwltdKettering Health Behavioral Medical Center on above:Order Comment: Specimen Type: BLOOD SPECIMENOrdering Facility: [facility] Address:[address] [place], [place] [address]Performed By: #### 69822- 8 ####[facility] LABCLIA [id number] [place] [address] [place] AMERICABilirubin [Mass/Vol]0.6 mg/dL Normal0.2-1.3COhio State Harding Hospitalment on above:Order Comment: Specimen Type: BLOOD SPECIMENOrdering Facility: [facility] Address:[address] [place], [place] [address]Performed By: #### 32165-2 ####[facility] LABCLIA [id number] [place] [address] [place] AMERICACalcium [Mass/Vol]8.7 mg/dLNormal8.5-10.2CSt. [facility] on above:Order Comment: Specimen Type: BLOOD SPECIMENOrdering Facility: [facility] Address:[address] [place], [place] [address]Performed By: #### [id number] ####[facility] LABCLIA [id number] [place] [address] [place] AMERICAChloride [Moles/Vol]102 mmol/XAlmqqu78-928SkrsbbqwcSelect Medical [facility] Comment on above:Order Comment: Specimen Type: BLOOD SPECIMENOrdering Facility: [facility] Address:[address] [place] [address] Performed By: #### 53436-4 ####[facility] LABCLIA [id number] [place] [address] [place] CO2 [Moles/Vol]24 mmol/FJjaill02-87ApzonfxflKettering Health [facility] on above: Order Comment: Specimen Type: BLOOD SPECIMENOrdering Facility: [facility] Address:[address] [place], [place] [address]Performed By: #### [id number]- 8 ####[facility] LABCLIA [id number] [place] [address] [place] AMERICACreatinine [Mass/Vol]1.87 mg/dL High0.73-1.22[facility] on above:Order Comment: Specimen Type: BLOOD SPECIMENOrdering Facility: [facility] Address:[address] [place], [place] [address]Performed By: #### [id number] ####[facility] LABIA [id number] [place] [address] [place] AMERICACreatinine and Glomerular filtration rate.predicted panel (S/P/Bld)37 mL/min/1.73m???Low>=60[facility] on above:Order Comment: Specimen Type: BLOOD SPECIMENOrdering Facility: [facility] Address:[address] [place], [place] [address]Result Comment: Estimated Glomerular Filtration Rate (eGFR) is calculated using the 2020 CKD-EPI creatinine equation. This equation utilizes serum creatinine, sex, and age as parameters. The creatinine assay has traceable calibration to isotope dilution- mass spectrometry. Refer to KDIGO guidelines for clinical interpretation. In patients with unstable renal function, e.g. those with acute kidney injury, the eGFR may not accurately reflect actual GFR.Performed By: #### 55228-1 ####[facility] LABCLIA [id number] [place] [address] [place] AMERICAGlucose [Mass/Vol]152 mg/dLHigh 74-99[facility] on above:Order Comment: Specimen Type: BLOOD SPECIMENOrdering Facility: [facility] Address:[address] [place], [place] [address]Result Comment: The [place] Diabetes Association (ADA) provides guidance for cutoff [...] unequivocal hyperglycemia, results should be confirmed by repeattesting. In a patient with classic symptoms of hyperglycemia or hyperglycemic crisis, random plasmaglucose results greater than or equal to 200 mg/dL meet the criteria for diagnosis of diabetes.Reference: Standards of Medical Care in Diabetes 2016, [place] [employer]. Diabetes Care. 2016.39(Suppl 1).Performed By: #### 36397-3 ####[facility] LABCLIA [id number] [place] [address] [place] AMERICAPotassium [Moles/Vol]5.0 mmol/L Normal3.7-5.1CSt. [facility] on above:Order Comment: Specimen Type: BLOOD SPECIMENOrdering Facility: [facility] Address:[address] [place], [place] [address]Performed By: #### 24673-2 ####[facility] LABIA [id number] [place] [address] [place] AMERICAProtein [Mass/Vol]4.9 g/dLLow6.3-8.0[facility] on above:Order Comment: Specimen Type: BLOOD SPECIMENOrdering Facility: [facility] Address:[address] [place], [place] [address]Performed By: #### 20543-6 ####[facility] LABCLIA [id number] [place] [address] [place] Sodium [Moles/Vol]138 mmol/QPjdisk296-348RojzaboazKettering Health Behavioral Medical Center on above:Order Comment: Specimen Type: BLOOD SPECIMENOrdering Facility: [facility] Address:[address] [place], [place] [address]Performed By: #### 56506-6 ####[facility] LABCLIA [id number] [place] [address] [place] AMERICAUrea nitrogen [Mass/Vol]24 mg/dLNormal9-24[facility] on above:Order Comment: Specimen Type: BLOOD SPECIMENOrdering Facility: [facility] Address:[address] [place], [place] [address]Performed By: #### 79118- 8 ####[facility] LABCLIA [id number] [place] [address] [place] AMERICAGas and Carbon monoxide panel (BldV)on 36-88-3876Vixw excess Calc (BldV) [Moles/Vol]2 mmol/LNormal0-2CSt. [facility] on above:Order Comment: Specimen Type: VENOUS BLOOD SPECIMENOrdering Facility: [facility] Address: [address] [place], [place] [address]Performed By: #### 29365-9 ####[facility] LABCLIA [id number] [place] [address] [place] AMERICABody aenrkzvkecp55.6 [degF]NormalKettering Health Behavioral Medical [facility] on above:Order Comment: Specimen Type: VENOUS BLOOD SPECIMENOrdering Facility: [facility] Address: [address] [place] [address] Performed By: #### 16361-7 ####[facility] LABCLIA [id number] [place] [address] [place] Calcium.ionized (Bld) [Mass/Vol]1.23 mmol/LNormal1.08-1.30[facility] on above:Order Comment: Specimen Type: VENOUS BLOOD SPECIMENOrdering Facility: [facility] Address: [address] [place], [place] [address]Performed By: #### 42683-3 ####[facility] LABCLIA [id number] [place] [address] [place] AMERICACalcium.ionized adjusted to pH 7.4 (BldA) [Moles/Vol]1.18 mmol/LNormal 1.08-1.30[facility] on above:Order Comment: Specimen Type: VENOUS BLOOD SPECIMENOrdering Facility: [facility] Ad dress: [address] [place], [place] [address]Performed By: #### 54910-8 ####[facility] [id number] [place] [address] [place] AMERICACarboxyhemoglobin (BldV) [Mass fraction]1.5 %Normal0.0-2.0[facility] on above:Order Comment: Specimen Type: VENOUS BLOOD SPECIMENOrdering Facility: [facility] Address: [address] [place], [place] [address]Result Comment: Carboxyhemoglobin Reference Range for Smokers: 2.0-8.0%Performed By: #### 56528- 4 ####[facility] [id number] [place] [address] [place] AMERICACO2 (BldV) [Partial pressure]52 mm[Hg]Mnkyzn89-26IkmygxfjoKettering Health Behavioral Medical Center on above:Order Comment: Specimen Type: VENOUS BLOOD SPECIMENOrdering Facility: [facility] Address: [address] [place], [place] [address]Performed By: #### 14531-7 ####[facility] LAB[facility] [id number] [place] [address] [place] AMERICAGlucose [Mass/Vol]120 mg/dQZslw16-077MknmmokwxK[facility] on above:Order Comment: Specimen Type: VENOUS BLOOD SPECIMENOrdering Facility: [facility] Address: [address] [place], [place] [address]Performed By: #### 45385-7 ####[facility] [id number] [place] [address] [place] AMERICAHCO3 (Bld) [Moles/Vol] 27 mmol/OVnjgmm84-98CkdvvbytaKettering Health [facility]al [facility] Center on above:Order Comment: Specimen Type: VENOUS BLOOD SPECIMENOrdering Facility: [facility] Address: [address] [place], [place] [address]Performed By: #### 81939-7 ####[facility] LABCLIA [id number] [place] [address] [place] AMERICAHematocrit (Bld) [Volume fraction]25.2 %Low39.0-51.0[facility] on above: Order Comment: Specimen Type: VENOUS BLOOD SPECIMENOrdering Facility: [facility] Address: [address] [place], [place] [address]Performed By: #### 81647-7 ####[facility] LABCLIA [id number] [place] [address] [place] AMERICAHemoglobin (Bld) [Mass/Vol]8.1 g/dLLow13.0-17.0[facility] on above:Order Comment: Specimen Type: VENOUS BLOOD SPECIMENOrdering Facility: [facility] Address: [address] [place], [place] [address]Performed By: #### 98915-8 ####[facility] LABCLIA [id number] [place] [address] [place] AMERICALactate [Moles/Vol]0.7 mmol/LNormal0.5-2.2CSt. [facility] on above:Order Comment: Specimen Type: VENOUS BLOOD SPECIMENOrdering Facility: [facility] Address: [address] [place], [place] [address]Performed By: #### 52944-6 ####[facility] LABCLIA [id number] [place] [address] [place] AMERICALITERS2 Liters/min NormalKettering Health Behavioral Medical Center on above:Order Comment: Specimen Type: VENOUS BLOOD SPECIMENOrdering Facility: [facility] Address: [address] [place], [place] [address]Performed By: #### 01243-8 ####[facility] LABCLIA [id number] [address]ETMethemoglobin (Bld) [Mass fraction]0.6 %Normal 0.0-1.5CSt. [facility] on above:Order Comment: Specimen Type: VENOUS BLOOD SPECIMENOrdering Facility: [facility] Address: [address] [place], [place] [address]Performed By: #### 87845-1 ####[facility] LABIA [id number] [address]O2 THERAPYNC = Nasal CannulaNormalCSt. Vincent Hospital on above:Order Comment: Specimen Type: VENOUS BLOOD SPECIMENOrdering Facility: [facility] Address: [address] [place], [place] [address]Performed By: #### 30717-4 ####[facility] LABCLIA [id number] [place] [address] [place] AMERICAOxygen (BldV) [Partial pressure]37 mm[Hg]Nouiie44-63MavhijoegKettering Health Behavioral Medical Center on above:Order Comment: Specimen Type: VENOUS BLOOD SPECIMENOrdering Facility: [facility] Address: [address] [place], [place] [address]Performed By: #### 57842-5 ####[facility] LABCLIA [id number] [address] STATES OF AMERICAOxygen saturation in Venous blood61 %Iotgmj41-74VoekwxliwK[facility] Health [facility]al [facility] on above:Order Comment: Specimen Type: VENOUS BLOOD SPECIMENOrdering Facility: [facility] Address: [address] [place], [place] [address]Performed By: #### 13489-9 ####[facility] LABCLIA [id number] [place] [address] [place] AMERICAOxyhemoglobin (BldV) [Mass fraction]60 %Yjxcbm07-77HkqmszewnKettering Health [facility]al [facility] Center on above:Order Comment: Specimen Type: VENOUS BLOOD SPECIMENOrdering Facility: [facility] Address: [address] [place], [place] [address]Performed By: #### 06453-7 ####[facility] LABIA [id number] [place] [address] [place] AMERICApH (BldV)7.34 [pH]Normal7.32-7.42[facility]-FairhillComment on above:Order Comment: Specimen Type: VENOUS BLOOD SPECIMENOrdering Facility: [facility] Address: [address] [place] [address] Performed By: #### 01955-8 ####[facility] LABIA [id number] [place] [address] [place] Potassium [Moles/Vol]4.3 mmol/LNormal3.5-5.0[facility]-FairhillComment on above:Order Comment: Specimen Type: VENOUS BLOOD SPECIMENOrdering Facility: [facility] Address: [address] [place] [address] Performed By: #### 71966-5 ####[facility] LABIA [id number] [place] [address] [place] Sodium [Moles/Vol]134 mmol/MMew080-560EquoqllozKettering Health Behavioral [facility] Center on above:Order Comment: Specimen Type: VENOUS BLOOD SPECIMENOrdering Facility: [facility] Address: [address] [place] [address] Performed By: #### 40750-8 ####[facility] LABIA [id number] [place] [address] [place] Base excess Calc (BldV) [Moles/Vol]2 mmol/LNormal0-2CSumma [facility] Comment on above:Order Comment: Specimen Type: VENOUS BLOOD SPECIMENOrdering Facility: [facility] Address: [address] [place], [place] [address]Performed By: #### 84562-3 ####[facility] LABCLIA [id number] [place] [address] [place] Body tslqjtbofbo34.14 [degF]NormalKettering Health [facility]al [facility] on above: Order Comment: Specimen Type: VENOUS BLOOD SPECIMENOrdering Facility: [facility] Address: [address] [place], [place] [address]Performed By: #### 46903-4 ####[facility] LABCLIA [id number] [place] [address] [place] AMERICACalcium.ionized (Bld) [Mass/Vol]1.22 mmol/LNormal1.08-1.30[facility] on above: Order Comment: Specimen Type: VENOUS BLOOD SPECIMENOrdering Facility: [facility] Address: [address] [place], [place] [address]Performed By: #### 47447-5 ####[facility] LABCLIA [id number] [place] [address] [place]ICACalcium.ionized adjusted to pH 7.4 (BldA) [Moles/Vol]1.18 mmol/LNormal1.08-1.30[facility] on above:Order Comment: Specimen Type: VENOUS BLOOD SPECIMENOrdering Facility: [facility] Address: [address] [place], [place] [address]Performed By: #### 21349-5 ####[facility] LABIA [id number] [place] [address] [place]ICACarboxyhemoglobin (BldV) [Mass fraction]1.2 %Normal0.0-2.0[facility] on above:Order Comment: Specimen Type: VENOUS BLOOD SPECIMENOrdering Facility: [facility] Address: [address] [place], [place] [address]Result Comment: Carboxyhemoglobin Reference Range for Smokers: 2.0-8.0%Performed By: #### 22816-0 ####[facility] LABCLIA [id number] [place] [address] [place] AMERICACO2 (BldV) [Partial pressure]53 mm[Hg]Vukbss53-02TtripvajnKet[facility] Health [facility]al [facility] on above:Order Comment: Specimen Type: VENOUS BLOOD SPECIMENOrdering Facility: [facility] Address: [address] [place], [place] [address]Performed By: #### 15163-3 ####[facility] LABCLIA [id number] [place] [address] [place] AMERICACO2 adjusted to patient's actual temperature (BldV) [Partial pressure]54 emJvZsyfit36-56PfpufexzeKettering Health [facility] on above:Order Comment: Specimen Type: VENOUS BLOOD SPECIMENOrdering Facility: [facility] Address: [address] [place], [place] [address]Performed By: #### 67945-1 ####[facility] LABCLIA [id number] [place] [address] [place] AMERICAGlucose [Mass/Vol]123 mg/zNXfti50-216NfmxfrthbKettering Health [facility]al [facility] Center on above:Order Comment: Specimen Type: VENOUS BLOOD SPECIMENOrdering Facility: [facility] Address: [address] [place], [place] [address]Performed By: #### 18816-7 ####[facility] LABCLIA [id number] [place] [address] [place] AMERICAHCO3 (Bld) [Moles/Vol] 28 mmol/BOwsdud58-32UohcgyddvKettering Health Behavioral Medical Center on above:Order Comment: Specimen Type: VENOUS BLOOD SPECIMENOrdering Facility: [facility] Address: [address] [place], [place] [address]Performed By: #### 23202-7 ####[facility] LABCLIA [id number] [place] [id number] [place] AMERICAHematocrit (Bld) [Volume fraction]26.5 %Low39.0-51.0[facility] on above: Order Comment: Specimen Type: VENOUS BLOOD SPECIMENOrdering Facility: [facility] Address: [address] [place], [place] [address]Performed By: #### 04575-9 ####[facility] LABCLIA [id number] [place] [id number] [place] AMERICAHemoglobin (Bld) [Mass/Vol]8.5 g/dLLow13.0-17.0[facility] on above:Order Comment: Specimen Type: VENOUS BLOOD SPECIMENOrdering Facility: [facility] Address: [address] [place], [place] [address]Performed By: #### 51329-2 ####[facility] LABCLIA [id number] [place] [address] [place] AMERICALactate [Moles/Vol]0.9 mmol/LNormal0.5-2.2CSt. [facility] on above:Order Comment: Specimen Type: VENOUS BLOOD SPECIMENOrdering Facility: [facility] Address: [address] [place], [place] [address]Performed By: #### 29762-2 ####[facility] LABCLIA [id number] [place] [address] [place] AMERICALITERS2 Liters/min NormalKettering Health Behavioral [facility] Center on above:Order Comment: Specimen Type: VENOUS BLOOD SPECIMENOrdering Facility: [facility] Address: [address] [place], [place] [address]Performed By: #### 25128-8 ####[facility] LABCLIA [id number] [place] [id number] [place] AMERICAMethemoglobin (Bld) [Mass fraction]1.5 %Normal 0.0-1.5CSt. [facility] on above:Order Comment: Specimen Type: VENOUS BLOOD SPECIMENOrdering Facility: [facility] Address: [address] [place], [place] [address]Performed By: #### 44309-0 ####[facility] LABCLIA [id number] [place] [id number] [place] [facility]PITALO2 THERAPYNC = Nasal CannulaNoalCSt. Vincent Hospital on above:Order Comment: Specimen Type: VENOUS BLOOD SPECIMENOrdering Facility: [facility] Address: [address] [place], [place] [address]Performed By: #### 20972-5 ####[facility] LABCLIA [id number] [place] [id number] [place] AMERICAOxygen (BldV) [Partial pressure]37 mm[Hg]Ixnrvy49-43PvnfmcwoqKettering Health Behavioral [facility] Center on above:Order Comment: Specimen Type: VENOUS BLOOD SPECIMENOrdering Facility: [facility] Address: [address] [place], [place] [address]Performed By: #### 70057-5 ####[facility] LABCLIA [id number] [address] OF AMERICAOxygen adjusted to patient's actual temperature (BldV) [Partial pressure]38 pnCiGeotth38-53DimgnnkreKettering Health Behavioral Medical Center on above:Order Comment: Specimen Type: VENOUS BLOOD SPECIMENOrdering Facility: [facility] Address: [address] [place], [place] [address]Performed By: #### 30821-2 ####[facility] LABCLIA [id number] [address] [address] [place] AMERICAOxygen saturation in Venous blood62 %Lygsxk10-75JkuruqcwqKettering Health Behavioral [facility] Center on above:Order Comment: Specimen Type: VENOUS BLOOD SPECIMENOrdering Facility: [facility] Address: [address] [place], [place] [address]Performed By: #### 54226-5 ####[facility] LABCLIA [id number] [address] [address] [place] AMERICAOxyhemoglobin (BldV) [Mass fraction]60 %Votfrv96-62LhatdxcfgKettering Health [facility] on above:Order Comment: Specimen Type: VENOUS BLOOD SPECIMENOrdering Facility: [facility] Address: [address] [place], [place] [address]Performed By: #### 59229-1 ####[facility] LABCLIA [id number] [place] [address] [place] AMERICApH (BldV)7.34 [pH] Normal7.32-7.42[facility]hillComselect [facility] on above:Order Comment: Specimen Type: VENOUS BLOOD SPECIMENOrdering Facility: [facility] Address: [address] [place], [place] [address]Performed By: #### 47665-2 ####[facility] LABIA [id number] [place] [address] [place] AMERICApH adjusted to patient's actual temperature (BldV)7.52Gocflw2.32-7.42[facility] Comment on above:Order Comment: Specimen Type: VENOUS BLOOD SPECIMENOrdering Facility: [facility] Address: [address] [place], [place] [address]Performed By: #### 41075-8 ####[facility] LABIA [id number] [place] [address] [place] Potassium [Moles/Vol]4.2 mmol/LNormal3.5-5.0[facility]-FairhillComselect specialty hospital[facility] on above:Order Comment: Specimen Type: VENOUS BLOOD SPECIMENOrdering Facility: [facility] Address: [address] [place] [address] Performed By: #### 35718-5 ####[facility] LABIA [id number] [place] [address] [place] Sodium [Moles/Vol]135 mmol/AByb167-872ZptytdewmSelect Medical Specialty Hospital - [facility]-FairhillComselect specialty hospital[facility] on above:Order Comment: Specimen Type: VENOUS BLOOD SPECIMENOrdering Facility: [facility] Address: [address] [place] [address] Performed By: #### 15985-9 ####[facility] LABCLIA [id number] [place] [address] [place] Base excess Calc (BldV) [Moles/Vol]1 mmol/LNormal0-2CSumma [facility] Comment on above:Order Comment: Specimen Type: VENOUS BLOOD SPECIMENOrdering Facility: [facility] Address: [address] [place], [place] [address]Performed By: #### 93945-6 ####[facility] [id number] [place] [address] [place] Body nixuwtkkdwr01.6 [degF]NormalSelect Medical Specialty Hospital - Cleveland-FairhillComment on above: Order Comment: Specimen Type: VENOUS BLOOD SPECIMENOrdering Facility: [facility] Address: [address] [place], [place] [address]Performed By: #### 19091-4 ####[facility] [id number] [address] STATES OF AMERICACalcium.ionized (Bld) [Mass/Vol]1.20 mmol/LNormal1.08-1.30[facility]-FairhillComment on above: Order Comment: Specimen Type: VENOUS BLOOD SPECIMENOrdering Facility: [facility] Address: [address] [place], [place] [address]Performed By: #### 34102-4 ####[facility] [id number] [address] STATES OF AMERICACalcium.ionized adjusted to pH 7.4 (BldA) [Moles/Vol]1.16 mmol/LNormal1.08-1.30[facility]-FairhillComselect specialty hospital[facility] on above:Order Comment: Specimen Type: VENOUS BLOOD SPECIMENOrdering Facility: [facility] Address: [address] [place], [place] [address]Performed By: #### 27086-6 ####[facility] [id number] [place] [address] [place] AMERICACarboxyhemoglobin (BldV) [Mass fraction]1.5 %Normal0.0-2.0[facility] on above:Order Comment: Specimen Type: VENOUS BLOOD SPECIMENOrdering Facility: [facility] Address: [address] [place], [place] [address]Result Comment: Carboxyhemoglobin Reference Range for Smokers: 2.0-8.0%Performed By: #### 91449-2 ####[facility] LABCLIA [id number] [place] [address] [place] AMERICACO2 (BldV) [Partial pressure]51 mm[Hg]Tepnfy91-59BhdmohtbdSelect Medical Specialty Hospital - Cleveland-FairhillComment on above:Order Comment: Specimen Type: VENOUS BLOOD SPECIMENOrdering Facility: [facility] Address: [address] [place], [place] [address]Performed By: #### 22815-0 ####[facility] LABCLIA [id number] [place] [address] [place] AMERICAGlucose [Mass/Vol]127 mg/sCNeiw91-971KypxoztzuSuburban Community Hospital & Brentwood Hospitalment on above:Order Comment: Specimen Type: VENOUS BLOOD SPECIMENOrdering Facility: [facility] Address: [address] [place] [address] Performed By: #### 88513-4 ####[facility] LABCLIA [id number] [place] [address] [place] HCO3 (Bld) [Moles/Vol]27 mmol/XLdaozg32-47FiqapcnybKettering Health Behavioral [facility] Center on above:Order Comment: Specimen Type: VENOUS BLOOD SPECIMENOrdering Facility: [facility] Address: [address] [place] [address] Performed By: #### 88327-0 ####[facility] LABCLIA [id number] [place] [address] [place] Hematocrit (Bld) [Volume fraction]25.8 %Low39.0-51.0[facility] Comment on above:Order Comment: Specimen Type: VENOUS BLOOD SPECIMENOrdering Facility: [facility] Address: [address] [place], [place] [address]Performed By: #### 29164-8 ####[facility] LABCLIA [id number] [place] [address] [place] Hemoglobin (Bld) [Mass/Vol]8.3 g/dLLow13.0-17.0[facility] on above:Order Comment: Specimen Type: VENOUS BLOOD SPECIMENOrdering Facility: [facility] Address: [address] [place] [address] Performed By: #### [id number] ####[facility] LABIA [id number] [place] [address] [place] Lactate [Moles/Vol]0.8 mmol/LNormal0.5-2.2CSt. [facility] on above:Order Comment: Specimen Type: VENOUS BLOOD SPECIMENOrdering Facility: [facility] Address: [address] [place] [address] Performed By: #### [id number] ####[facility] LABIA [id number] [place] [address] [place] LITERS2 Liters/minNormalCSt. [facility] Hospital on above:Order Comment: Specimen Type: VENOUS BLOOD SPECIMENOrdering Facility: [facility] Address: [address] [place], [place] [address]Performed By: #### [id number] ####[facility] LABIA [id number] [place] [address] [place] AMERICAMethemoglobin (Bld) [Mass fraction]1.5 %Normal0.0-1.5CSt. [facility] on above: Order Comment: Specimen Type: VENOUS BLOOD SPECIMENOrdering Facility: [facility] Address: [address] [place], [place] [address]Performed By: #### 02303-4 ####[facility] LABCLIA [id number] [id number], [place] [address] [place] AMERICAO2 THERAPYNC = Nasal CannulaNormalCSt. [facility] Hospital on above:Order Comment: Specimen Type: VENOUS BLOOD SPECIMENOrdering Facility: [facility] Ad dress: [address] [place], [place] [address]Performed By: #### 57658-7 ####[facility] LABCLIA [id number] [place] [address] [place] AMERICAOxygen (BldV) [Partial pressure] 39 mm[Hg]Srilys03-57AaggnevafKettering Health Behavioral Medical Center on above:Order Comment: Specimen Type: VENOUS BLOOD SPECIMENOrdering Facility: [facility] Address: [address] [place], [place] [address]Performed By: #### 58977-8 ####[facility] LABCLIA [id number] [address] STATES OF AMERICAOxygen saturation in Venous blood65 %Qxvfmh26-84WovfjjrntKettering Health Behavioral Medical Center on above:Order Comment: Specimen Type: VENOUS BLOOD SPECIMENOrdering Facility: [facility] Address: [address] [place], [place] [address]Performed By: #### 12990-2 ####[facility] LABCLIA [id number] [address] STATES OF AMERICAOxyhemoglobin (BldV) [Mass fraction]63 %Vzslxc44-90RgifsyejlKettering Health Behavioral Medical Center on above:Order Comment: Specimen Type: VENOUS BLOOD SPECIMENOrdering Facility: [facility] Address: [address] [place], [place] [address]Performed By: #### 50797-4 ####[facility] LABCLIA [id number] [place] [address] [place] AMERICApH (BldV)7.34 [pH] Normal7.32-7.42[facility] on above:Order Comment: Specimen Type: VENOUS BLOOD SPECIMENOrdering Facility: [facility] Address: [address] [place], [place] [address]Performed By: #### 39338-3 ####[facility] LABCLIA [id number] [place] [address] [place] AMERICAPotassium [Moles/Vol] 4.4 mmol/LNormal3.5-5.0[facility] on above:Order Comment: Specimen Type: VENOUS BLOOD SPECIMENOrdering Facility: [facility] Address: [address] [place], [place] [address]Performed By: #### 64540-2 ####[facility] LABIA [id number] [place] [address] [place] AMERICASodium [Moles/Vol]134 mmol/OFbb286-935QufurbyymKettering Health Behavioral [facility] Center on above:Order Comment: Specimen Type: VENOUS BLOOD SPECIMENOrdering Facility: [facility] Address: [address] [place], [place] [address]Performed By: #### 85341-6 ####[facility] [id number] [place] [address] [place] AMERICABase excess Calc (BldV) [Moles/Vol]0 mmol/LNormal0-2CSt. [facility] on above: Order Comment: Specimen Type: VENOUS BLOOD SPECIMENOrdering Facility: [facility] Address: [address] [place], [place] [address]Performed By: #### 78961-6 ####[facility] [id number] [place] [address] [place] AMERICABody sawnojcpykx76.6 [degF]NormalKettering Health Behavioral Medical Center on above:Order Comment: Specimen Type: VENOUS BLOOD SPECIMENOrdering Facility: [facility] Ad dress: [address] [place], [place] [address]Performed By: #### 81932-5 ####[facility] [id number] [place] [address] [place] AMERICACalcium.ionized (Bld) [Mass/Vol] 1.16 mmol/LNormal1.08-1.30[facility] on above:Order Comment: Specimen Type: VENOUS BLOOD SPECIMENOrdering Facility: [facility] Address: [address] [place], [place] [address]Performed By: #### 03254-0 ####[facility] LABIA [id number] [place] [address] [place] AMERICACalcium.ionized adjusted to pH 7.4 (BldA) [Moles/Vol]1.13 mmol/LNormal1.08-1.30[facility] on above:Order Comment: Specimen Type: VENOUS BLOOD SPECIMENOrdering Facility: [facility] Address: [address] [place], [place] [address]Performed By: #### 66483-6 ####[facility] [id number] [address] STATES OF [facility] COUNTY HOSPITALCarboxyhemoglobin (BldV) [Mass fraction]1.7 %Normal0.0-2.0[facility] on above:Order Comment: Specimen Type: VENOUS BLOOD SPECIMENOrdering Facility: [facility] Address: [address] [place], [place] [address]Result Comment: Carboxyhemoglobin Reference Range for Smokers: 2.0-8.0%Performed By: #### 32674-4 ####[facility] [id number] [place] [address] [place] AMERICACO2 (BldV) [Partial pressure]46 mm[Hg]Wmrzyy53-13RfavwqvoyKettering Health Behavioral Medical Center on above:Order Comment: Specimen Type: VENOUS BLOOD SPECIMENOrdering Facility: [facility] Address: [address] [place], [place] [address]Performed By: #### 97783-3 ####[facility] LABIA [id number] [place] [address] [place] AMERICAGlucose [Mass/Vol]114 mg/nJGeoj51-533AktvxwbakKettering Health Behavioral Medical Center on above:Order Comment: Specimen Type: VENOUS BLOOD SPECIMENOrdering Facility: [facility] Address: [address] [place] [address] Performed By: #### 09550-2 ####[facility] LABCLIA [id number] [place] [address] [place] HCO3 (Bld) [Moles/Vol]25 mmol/VWazmmt08-29KshrwkoejKettering Health Behavioral Medical Center on above:Order Comment: Specimen Type: VENOUS BLOOD SPECIMENOrdering Facility: [facility] Address: [address] [place] [address] Performed By: #### 67546-4 ####[facility] LABCLIA [id number] [place] [address] [place] Hematocrit (Bld) [Volume fraction]25.0 %Low39.0-51.0[facility] Comment on above:Order Comment: Specimen Type: VENOUS BLOOD SPECIMENOrdering Facility: [facility] Address: [address] [place], [place] [address]Performed By: #### 32765-9 ####[facility] LABIA [id number] [place] [address] [place] Hemoglobin (Bld) [Mass/Vol]8.0 g/dLLow13.0-17.0[facility] on above:Order Comment: Specimen Type: VENOUS BLOOD SPECIMENOrdering Facility: [facility] Address: [address] [place] [address] Performed By: #### 27889-8 ####[facility] LABCLIA [id number] [place] [address] [place] Lactate [Moles/Vol]0.8 mmol/LNormal0.5-2.2CSumma Health Akron CampusComselect specialty hospital-[facility] on above:Order Comment: Specimen Type: VENOUS BLOOD SPECIMENOrdering Facility: [facility] Address: [address] [place] [address] Performed By: #### 79490-4 ####[facility] LABCLIA [id number] [place] [address] [place] LITERS2 Liters/minNormalCSt. [facility] on above:Order Comment: Specimen Type: VENOUS BLOOD SPECIMENOrdering Facility: [facility] Address: [address] [place], [place] [address]Performed By: #### 58546-0 ####[facility] LABCLIA [id number] [address] STATES OF AMERICAMethemoglobin (Bld) [Mass fraction]0.5 %Normal0.0-1.5CSt. [facility] Hospital on above: Order Comment: Specimen Type: VENOUS BLOOD SPECIMENOrdering Facility: [facility] Address: [address] [place], [place] [address]Performed By: #### 29953-0 ####[facility] LABCLIA [id number] [address] STATES OF AMERICAO2 THERAPYNC = Nasal CannulaNormAultman Orrville Hospital on above:Order Comment: Specimen Type: VENOUS BLOOD SPECIMENOrdering Facility: [facility] Ad dress: [address] [place], [place] [address]Performed By: #### 73509-0 ####[facility] LABCLIA [id number] [place] [address] [place] AMERICAOxygen (BldV) [Partial pressure] 38 mm[Hg]Rllsav45-46QtwerbxpgKettering Health Behavioral Medical Center on above:Order Comment: Specimen Type: VENOUS BLOOD SPECIMENOrdering Facility: [facility] Address: [address] [place], [place] [address]Performed By: #### 14530-9 ####[facility] LABCLIA [id number] [address] STATES OF AMERICAOxygen saturation in Venous blood64 %Gdjibx54-20KvegqinyjKettering Health Behavioral Medical Center on above:Order Comment: Specimen Type: VENOUS BLOOD SPECIMENOrdering Facility: [facility] Address: [address] [place], [place] [address]Performed By: #### 07171-0 ####[facility] LABIA [id number] [place] [address] [place] AMERICAOxyhemoglobin (BldV) [Mass fraction]63 %Ptsvib78-82XhynbuptcKettering Health Behavioral Medical Center on above:Order Comment: Specimen Type: VENOUS BLOOD SPECIMENOrdering Facility: [facility] Address: [address] [place], [place] [address]Performed By: #### 67847-3 ####[facility] LABIA [id number] [place] [address] [place] AMERICApH (BldV)7.35 [pH] Normal7.32-7.42[facility] on above:Order Comment: Specimen Type: VENOUS BLOOD SPECIMENOrdering Facility: [facility] Address: [address] [place], [place] [address]Performed By: #### 10756-1 ####[facility] LABIA [id number] [place] [address] [place] AMERICAPotassium [Moles/Vol] 4.2 mmol/LNormal3.5-5.0[facility] on above:Order Comment: Specimen Type: VENOUS BLOOD SPECIMENOrdering Facility: [facility] Address: [address] [place], [place] [address]Performed By: #### 76582-9 ####[facility] LABIA [id number] [place] [address] [place] AMERICASodium [Moles/Vol]135 mmol/VQul479-340RugcblsaeKettering Health [facility]al [facility] Center on above:Order Comment: Specimen Type: VENOUS BLOOD SPECIMENOrdering Facility: [facility] Address: [address] [place], [place] [address]Performed By: #### 44161-1 ####[facility] LABIA [id number] [place] [address] [place] AMERICABASE DEFICIT, VENOUS-1 mmol/SEtmtrw-8-5JabvvdesnKettering Health [facility]al [facility] Center on above:Order Comment: Specimen Type: VENOUS BLOOD SPECIMENOrdering Facility: [facility] Address: [address] [place], [place] [address]Performed By: #### 29938-6 ####[facility] LABCLIA [id number] [place] [address] [place] AMERICABody puhtxgbwsoz52.6 [degF]NormalKettering Health Behavioral Medical Center on above:Order Comment: Specimen Type: VENOUS BLOOD SPECIMENOrdering Facility: [facility] Ad dress: [address] [place], [place] [address]Performed By: #### 29028-4 ####[facility] LABCLIA [id number] [place] [address] [place] AMERICACalcium.ionized (Bld) [Mass/Vol] 1.18 mmol/LNormal1.08-1.30[facility] on above:Order Comment: Specimen Type: VENOUS BLOOD SPECIMENOrdering Facility: [facility] Address: [address] [place], [place] [address]Performed By: #### 00260-1 ####[facility] LABIA [id number] [place] [address] [place] AMERICACalcium.ionized adjusted to pH 7.4 (BldA) [Moles/Vol]1.14 mmol/LNormal1.08-1.30[facility] on above:Order Comment: Specimen Type: VENOUS BLOOD SPECIMENOrdering Facility: [facility] Address: [address] [place], [place] [address]Performed By: #### 71596-1 ####[facility] LABIA [id number] [place] [address] [place] AMERICACarboxyhemoglobin (BldV) [Mass fraction]1.6 %Normal0.0-2.0[facility] on above:Order Comment: Specimen Type: VENOUS BLOOD SPECIMENOrdering Facility: [facility] Address: [address] [place], [place] [address]Result Comment: Carboxyhemoglobin Reference Range for Smokers: 2.0-8.0%Performed By: #### 85570-5 ####[facility] LABCLIA [id number] [place] [address] [place] AMERICACO2 (BldV) [Partial pressure]48 mm[Hg]Gqsjqx66-41HyjdqalyeSelect Medical Specialty Hospital - [facility]-FairhillComment on above:Order Comment: Specimen Type: VENOUS BLOOD SPECIMENOrdering Facility: [facility] Address: [address] [place], [place] [address]Performed By: #### 99000-1 ####[facility] LABCLIA [id number] [place] [address] [place] AMERICAGlucose [Mass/Vol]108 mg/fIKfhp95-152GjuyrmgbnSelect Medical Specialty Hospital - Cleveland-FairhillComment on above:Order Comment: Specimen Type: VENOUS BLOOD SPECIMENOrdering Facility: [facility] Address: [address] [place] [address] Performed By: #### 72123-1 ####[facility] LABCLIA [id number] [place] [address] [place] HCO3 (Bld) [Moles/Vol]24 mmol/DBqzycs83-74BdgjuggpaSelect Medical Specialty Hospital - [facility]-FairhillComselect specialty hospital-[facility] on above:Order Comment: Specimen Type: VENOUS BLOOD SPECIMENOrdering Facility: [facility] Address: [address] [place] [address] Performed By: #### 52465-0 ####[facility] LABCLIA [id number] [place] [address] [place] Hematocrit (Bld) [Volume fraction]25.8 %Low39.0-51.0[facility] Comment on above:Order Comment: Specimen Type: VENOUS BLOOD SPECIMENOrdering Facility: [facility] Address: [address] [place], [place] [address]Performed By: #### 53240-7 ####[facility] LABCLIA [id number] [place] [address] [place] Hemoglobin (Bld) [Mass/Vol]8.3 g/dLLow13.0-17.0[facility] on above:Order Comment: Specimen Type: VENOUS BLOOD SPECIMENOrdering Facility: [facility] Address: [address] [place] [address] Performed By: #### 20901-8 ####[facility] LABCLIA [id number] [place] [address] [place] Lactate [Moles/Vol]0.8 mmol/LNormal0.5-2.2CSt. [facility] on above:Order Comment: Specimen Type: VENOUS BLOOD SPECIMENOrdering Facility: [facility] Address: [address] [place] [address] Performed By: #### 42634-7 ####[facility] LABIA [id number] [place] [address] [place] LITERS2 Liters/minNormAultman Orrville Hospital on above:Order Comment: Specimen Type: VENOUS BLOOD SPECIMENOrdering Facility: [facility] Address: [address] [place], [place] [address]Performed By: #### 20044-0 ####[facility] LABIA [id number] [place] [address] [place] AMERICAMethemoglobin (Bld) [Mass fraction]0.8 %Normal0.0-1.5CSt. [facility] on above: Order Comment: Specimen Type: VENOUS BLOOD SPECIMENOrdering Facility: [facility] Address: [address] [place], [place] [address]Performed By: #### 57825-8 ####[facility] LABIA [id number] [place] [address] [place]O2 THERAPYNC = Nasal CannulaNormalCSt. [facility] on above:Order Comment: Specimen Type: VENOUS BLOOD SPECIMENOrdering Facility: [facility] Ad dress: [address], [place] [address]Performed By: #### 15993-3 ####[facility] LABCLIA [id number] [place] [address] [place] AMERICAOxygen (BldV) [Partial pressure] 40 mm[Hg]Nnohya18-27KdyupvpvcKettering Health Behavioral Medical Center on above:Order Comment: Specimen Type: VENOUS BLOOD SPECIMENOrdering Facility: [facility] Address: [address] [place], [place] [address]Performed By: #### 14418-6 ####[facility] LABIA [id number] [address] STATES OF AMERICAOxygen saturation in Venous blood66 %Qdcaqj10-43GlzogsewyKettering Health Behavioral Medical Center on above:Order Comment: Specimen Type: VENOUS BLOOD SPECIMENOrdering Facility: [facility] Address: [address] [place], [place] [address]Performed By: #### 40440-4 ####[facility] LABIA [id number] [address] STATES OF AMERICAOxyhemoglobin (BldV) [Mass fraction]64 %Cipvgo23-61BlksqoqveKettering Health Behavioral Medical Center on above:Order Comment: Specimen Type: VENOUS BLOOD SPECIMENOrdering Facility: [facility] Address: [address] [place], [place] [address]Performed By: #### 52202-9 ####[facility] LABCLIA [id number] [place] [id number] [place] AMERICApH (BldV)7.33 [pH] Normal7.32-7.42[facility] on above:Order Comment: Specimen Type: VENOUS BLOOD SPECIMENOrdering Facility: [facility] Address: [address] [place], [place] [address]Performed By: #### 53482-1 ####[facility] LABCLIA [id number] [address] [place], [place] [address] [place] AMERICAPotassium [Moles/Vol] 4.3 mmol/LNormal3.5-5.0[facility] on above:Order Comment: Specimen Type: VENOUS BLOOD SPECIMENOrdering Facility: [facility] Address: [address] [place], [place] [address]Performed By: #### 10750-3 ####[facility] LABCLIA [id number] [place] [address] [place]ICASodium [Moles/Vol]136 mmol/NZkmimc492-745IgnjgrtjvKettering Health Behavioral Medical Center on above:Order Comment: Specimen Type: VENOUS BLOOD SPECIMENOrdering Facility: [facility] Address: [address] [place], [place] [address]Performed By: #### 76355-9 ####[facility] LABIA [id number] [place] [address] [place] AMERICABase excess Calc (BldV) [Moles/Vol]1 mmol/LNormal0-2CSt. [facility] on above: Order Comment: Specimen Type: VENOUS BLOOD SPECIMENOrdering Facility: [facility] Address: [address] [place], [place] [address]Performed By: #### 34413-0 ####[facility] LABIA [id number] [place] [address] [place]ICABody apllmjxtzaf39.6 [degF]NormalKettering Health Behavioral Medical Center on above:Order Comment: Specimen Type: VENOUS BLOOD SPECIMENOrdering Facility: [facility] Ad dress: [address] [place], [place] [address]Performed By: #### 12681-9 ####[facility] LABIA [id number] [place] [address] [place] AMERICACalcium.ionized (Bld) [Mass/Vol] 1.23 mmol/LNormal1.08-1.30[facility] on above:Order Comment: Specimen Type: VENOUS BLOOD SPECIMENOrdering Facility: [facility] Address: [address] [place], [place] [address]Performed By: #### 79106-8 ####[facility] LABIA [id number] [place] [address] [place]ACalcium.ionized adjusted to pH 7.4 (BldA) [Moles/Vol]1.17 mmol/LNormal1.08-1.30[facility] Hospitalment on above:Order Comment: Specimen Type: VENOUS BLOOD SPECIMENOrdering Facility: [facility] Address: [address] [place], [place] [address]Performed By: #### 63789-6 ####[facility] LABIA [id number] [address] STATES OF [facility] COUNTY HOSPITALCarboxyhemoglobin (BldV) [Mass fraction]1.1 %Normal0.0-2.0[facility] on above:Order Comment: Specimen Type: VENOUS BLOOD SPECIMENOrdering Facility: [facility] Address: [address] [place], [place] [address]Result Comment: Carboxyhemoglobin Reference Range for Smokers: 2.0-8.0%Performed By: #### 22434-4 ####[facility] LABIA [id number] [place] [address] [place] AMERICACO2 (BldV) [Partial pressure]57 mm[Hg]Rzlq41-61VwisustdeSelect Medical Specialty Hospital [facility] Comment on above:Order Comment: Specimen Type: VENOUS BLOOD SPECIMENOrdering Facility: [facility] Address: [address] [place], [place] [address]Performed By: #### 28329-5 ####[facility] LABIA [id number] [place] [address] [place] Glucose [Mass/Vol]87 mg/sJJsqeta56-390OlruaynkzKettering Health Behavioral Medical Center on above:Order Comment: Specimen Type: VENOUS BLOOD SPECIMENOrdering Facility: [facility] Address: [address] [place] [address] Performed By: #### 55345-6 ####[facility] LABCLIA [id number] [place] [address] [place] HCO3 (Bld) [Moles/Vol]27 mmol/OHhmcbj11-80ZxpacqduvKettering Health Behavioral [facility] Center on above:Order Comment: Specimen Type: VENOUS BLOOD SPECIMENOrdering Facility: [facility] Address: [address] [place] [address] Performed By: #### 14961-9 ####[facility] LABCLIA [id number] [place] [address] [place] Hematocrit (Bld) [Volume fraction]27.6 %Low39.0-51.0[facility] Comment on above:Order Comment: Specimen Type: VENOUS BLOOD SPECIMENOrdering Facility: [facility] Address: [address] [place], [place] [address]Performed By: #### 63287-3 ####[facility] LABIA [id number] [place] [address] [place] Hemoglobin (Bld) [Mass/Vol]8.9 g/dLLow13.0-17.0[facility] on above:Order Comment: Specimen Type: VENOUS BLOOD SPECIMENOrdering Facility: [facility] Address: [address] [place] [address] Performed By: #### 08467-7 ####[facility] LABIA [id number] [place] [address] [place] Lactate [Moles/Vol]1.5 mmol/LNormal0.5-2.2CSumma Health Akron CampusComselect specialty hospital-[facility] on above:Order Comment: Specimen Type: VENOUS BLOOD SPECIMENOrdering Facility: [facility] Address: [address] [place] [address] Performed By: #### 38512-9 ####[facility] LABCLIA [id number] [place] [address] [place] LITERS2 Liters/minNormalClevelMarymount Hospital on above:Order Comment: Specimen Type: VENOUS BLOOD SPECIMENOrdering Facility: [facility] Address: [address] [place], [place] [address]Performed By: #### 36730-8 ####[facility] LABCLIA [id number] [address] STATES OF [facility] COUNTY HOSPITALMethemoglobin (Bld) [Mass fraction]1.4 %Normal0.0-1.5CSt. [facility] on above: Order Comment: Specimen Type: VENOUS BLOOD SPECIMENOrdering Facility: [facility] Address: [address], [place] [address]Performed By: #### 89351-3 ####[facility] LABIA [id number] [address] [place] AMERICAO2 THERAPYNC = Nasal CannulaNormalCSt. Vincent Hospital on above:Order Comment: Specimen Type: VENOUS BLOOD SPECIMENOrdering Facility: [facility] Ad dress: [address] [place], [place] [address]Performed By: #### 69039-0 ####[facility] LABCLIA [id number] [place] [address] [place] AMERICAOxygen (BldV) [Partial pressure] 40 mm[Hg][id number] Health Behavioral Medical Center on above:Order Comment: Specimen Type: VENOUS BLOOD SPECIMENOrdering Facility: [facility] Address: [address] [place], [place] [address]Performed By: #### 89827-9 ####[facility] LABCLIA [id number] [place] [id number] [place] AMERICAOxygen saturation in Venous blood65 %[id number] Health Behavioral Medical Center on above:Order Comment: Specimen Type: VENOUS BLOOD SPECIMENOrdering Facility: [facility] Address: [address] [place], [place] [address]Performed By: #### 94402-7 ####[facility] LABCLIA [id number] [place] [address] [place] AMERICAOxyhemoglobin (BldV) [Mass fraction]63 %Kxkwdk74-05UfujohgwiKettering Health Behavioral Medical Center on above:Order Comment: Specimen Type: VENOUS BLOOD SPECIMENOrdering Facility: [facility] Address: [address] [place], [place] [address]Performed By: #### 83481-4 ####[facility] LABIA [id number] [place] [address] [place] AMERICApH (BldV)7.30 [pH]Low 7.32-7.42[facility] on above:Order Comment: Specimen Type: VENOUS BLOOD SPECIMENOrdering Facility: [facility] Ad dress: [address] [place], [place] [address]Performed By: #### 92270-5 ####[facility] [id number] [place] [address] [place] AMERICAPotassium [Moles/Vol]4.1 mmol/L Normal3.5-5.0[facility] on above:Order Comment: Specimen Type: VENOUS BLOOD SPECIMENOrdering Facility: [facility] Ad dress: [address] [place], [place] [address]Performed By: #### 66114-9 ####[facility] [id number] [place] [address] [place] AMERICASodium [Moles/Vol]135 mmol/LLow 136-144[facility] on above:Order Comment: Specimen Type: VENOUS BLOOD SPECIMENOrdering Facility: [facility] Address: [address] [place], [place] [address]Performed By: #### 88408-8 ####[facility] [id number] [place] [id number] [place] OF AMERICABase excess Calc (BldV) [Moles/Vol]1 mmol/LNormal 0-2CSt. [facility] on above:Order Comment: Specimen Type: VENOUS BLOOD SPECIMENOrdering Facility: [facility] Address: [address] [place], [place] [address]Performed By: #### 41888-0 ####[facility] [id number] [place] [address] [place] AMERICABody pybxpwxjtwz05.6 [degF]NormalSelect Medical Specialty Hospital - [facility]-FairhillComselect specialty hospital-[facility] on above:Order Comment: Specimen Type: VENOUS BLOOD SPECIMENOrdering Facility: [facility] Address: [address] [place], [place] [address]Performed By: #### 85923-4 ####[facility] [id number] [place] [address] [place] AMERICACalcium.ionized (Bld) [Mass/Vol]1.21 mmol/LNormal1.08-1.30[facility] on above:Order Comment: Specimen Type: VENOUS BLOOD SPECIMENOrdering Facility: [facility] Address: [address] [place], [place] [address]Performed By: #### 66070-3 ####[facility] [id number] [place] [address] [place] AMERICACalcium.ionized adjusted to pH 7.4 (BldA) [Moles/Vol]1.18 mmol/LNormal 1.08-1.30[facility] on above:Order Comment: Specimen Type: VENOUS BLOOD SPECIMENOrdering Facility: [facility] Ad dress: [address] [place], [place] [address]Performed By: #### 59439-8 ####[facility] [id number] [place] [address] [place] AMERICACarboxyhemoglobin (BldV) [Mass fraction]1.1 %Normal0.0-2.0[facility] on above:Order Comment: Specimen Type: VENOUS BLOOD SPECIMENOrdering Facility: [facility] Address: [address] [place], [place] [address]Result Comment: Carboxyhemoglobin Reference Range for Smokers: 2.0-8.0%Performed By: #### 70993- 4 ####[facility] LABCLIA [id number] [place] [address] [place] AMERICACO2 (BldV) [Partial pressure]48 mm[Hg]Pbrrdw22-61ZzoiwalavKettering Health Behavioral Medical Center on above:Order Comment: Specimen Type: VENOUS BLOOD SPECIMENOrdering Facility: [facility] Address: [address] [place], [place] [address]Performed By: #### 29200-9 ####[facility] [id number] [place] [address] [place] AMERICAGlucose [Mass/Vol]149 mg/oNEqar07-864PwbbrnjlkKettering Health Behavioral Medical Center on above:Order Comment: Specimen Type: VENOUS BLOOD SPECIMENOrdering Facility: [facility] Address: [address] [place], [place] [address]Performed By: #### 89527-1 ####[facility] [id number] [place] [address] [place] AMERICAHCO3 (Bld) [Moles/Vol] 26 mmol/ZVzdcuy30-96OeizahoxfKettering Health Behavioral Medical Center on above:Order Comment: Specimen Type: VENOUS BLOOD SPECIMENOrdering Facility: [facility] Address: [address] [place], [place] [address]Performed By: #### 12893-0 ####[facility] [id number] [place] [address] [place] AMERICAHematocrit (Bld) [Volume fraction]26.5 %Low39.0-51.0[facility] on above: Order Comment: Specimen Type: VENOUS BLOOD SPECIMENOrdering Facility: [facility] Address: [address] [place], [place] [address]Performed By: #### 31977-2 ####[facility] [id number] [place] [address] [place] AMERICAHemoglobin (Bld) [Mass/Vol]8.5 g/dLLow13.0-17.0[facility] on above:Order Comment: Specimen Type: VENOUS BLOOD SPECIMENOrdering Facility: [facility] Address: [address] [place], [place] [address]Performed By: #### 46487-9 ####[facility] LABCLIA [id number] [place] [address] [place] AMERICALactate [Moles/Vol]1.2 mmol/LNormal0.5-2.2CSt. [facility] on above:Order Comment: Specimen Type: VENOUS BLOOD SPECIMENOrdering Facility: [facility] Address: [address] [place], [place] [address]Performed By: #### 34809-9 ####[facility] LABCLIA [id number] [place] [address] [place] AMERICALITERS2 Liters/min NormalKettering Health Behavioral Medical Center on above:Order Comment: Specimen Type: VENOUS BLOOD SPECIMENOrdering Facility: [facility] Address: [address] [place], [place] [address]Performed By: #### 20894-2 ####[facility] LABCLIA [id number] [place] [address] [place] AMERICAMethemoglobin (Bld) [Mass fraction]0.4 %Normal 0.0-1.5CSt. [facility] on above:Order Comment: Specimen Type: VENOUS BLOOD SPECIMENOrdering Facility: [facility] Address: [address] [place], [place] [address]Performed By: #### 81190-2 ####[facility] LABCLIA [id number] [place] [address] [place] AMERICAO2 THERAPYNC = Nasal CannulaNormalCSt. Vincent Hospital on above:Order Comment: Specimen Type: VENOUS BLOOD SPECIMENOrdering Facility: [facility] Address: [address] [place], [place] [address]Performed By: #### 70013-7 ####[facility] LABCLIA [id number] [place] [address] [place] AMERICAOxygen (BldV) [Partial pressure]34 mm[Hg]Tdd27-20ZkqwjabejKettering Health Behavioral Medical Center on above:Order Comment: Specimen Type: VENOUS BLOOD SPECIMENOrdering Facility: [facility] Address: [address] [place], [place] [address]Performed By: #### 82268-0 ####[facility] LABCLIA [id number] [place] [address] [place] [facility] COUNTY HOSPITALOxygen saturation in Venous blood55 %Xoc96-37BnihhbzntSelect Medical Specialty Hospital - [facility] Comment on above:Order Comment: Specimen Type: VENOUS BLOOD SPECIMENOrdering Facility: [facility] Address: [address] [place], [place] [address]Performed By: #### 02610-5 ####[facility] LABCLIA [id number] [place] [address] [place] Oxyhemoglobin (BldV) [Mass fraction]54 %Gvr95-52FypfteyzsSelect Medical Specialty Hospital - [place]-[facility] Comment on above:Order Comment: Specimen Type: VENOUS BLOOD SPECIMENOrdering Facility: [facility] Address: [address] [place], [place] [address]Performed By: #### 51276-5 ####[facility] LABCLIA [id number] [place] [id number] [place] pH (BldV)7.36 [pH]Normal7.32-7.42[facility]-FairhillComment on above: Order Comment: Specimen Type: VENOUS BLOOD SPECIMENOrdering Facility: [facility] Address: [address] [place], [place] [address]Performed By: #### 12989-5 ####[facility] LABCLIA [id number] [place] [id number] [place] AMERICAPotassium [Moles/Vol] 4.6 mmol/LNormal3.5-5.0[facility] ClevelandComment on above:Order Comment: Specimen Type: VENOUS BLOOD SPECIMENOrdering Facility: [facility] Address: [address] [place], [place] [address]Performed By: #### 81060-5 ####[facility] [id number] [place] [address] [place] AMERICASodium [Moles/Vol]135 mmol/RKii470-527FxoqhzyeiKettering Health Behavioral Medical Center on above:Order Comment: Specimen Type: VENOUS BLOOD SPECIMENOrdering Facility: [facility] Address: [address] [place], [place] [address]Performed By: #### 80196-2 ####[facility] [id number] [place] [address] [place] AMERICABase excess Calc (BldV) [Moles/Vol]1 mmol/LNormal0-2CSt. [facility] on above: Order Comment: Specimen Type: VENOUS BLOOD SPECIMENOrdering Facility: [facility] Address: [address] [place], [place] [address]Performed By: #### 82111-6 ####[facility] [id number] [place] [address] [place] AMERICABody favaxxmnzwn66.6 [degF]NormalKettering Health Behavioral Medical Center on above:Order Comment: Specimen Type: VENOUS BLOOD SPECIMENOrdering Facility: [facility] Ad dress: [address] [place], [place] [address]Performed By: #### 66340-0 ####[facility] [id number] [place] [address] [place] AMERICACalcium.ionized (Bld) [Mass/Vol] 1.22 mmol/LNormal1.08-1.30[facility] on above:Order Comment: Specimen Type: VENOUS BLOOD SPECIMENOrdering Facility: [facility] Address: [address] [place], [place] [address]Performed By: #### 61966-1 ####[facility] [id number] [place] [address] [place] AMERICACalcium.ionized adjusted to pH 7.4 (BldA) [Moles/Vol]1.18 mmol/LNormal1.08-1.30[facility] on above:Order Comment: Specimen Type: VENOUS BLOOD SPECIMENOrdering Facility: [facility] Address: [address] [place], [place] [address]Performed By: #### 03083-9 ####[facility] LABK[facility] [id number] [place] [address] [place] AMERICACarboxyhemoglobin (BldV) [Mass fraction]1.4 %Normal0.0-2.0[facility] on above:Order Comment: Specimen Type: VENOUS BLOOD SPECIMENOrdering Facility: [facility] Address: [address] [place], [place] [address]Result Comment: Carboxyhemoglobin Reference Range for Smokers: 2.0-8.0%Performed By: #### 69328-4 ####[facility] LABKER[facility] [id number] [place] [address] [place] AMERICACO2 (BldV) [Partial pressure]49 mm[Hg]Udnfzx05-11DgtldcaxyKettering Health Behavioral Medical Center on above:Order Comment: Specimen Type: VENOUS BLOOD SPECIMENOrdering Facility: [facility] Address: [address] [place], [place] [address]Performed By: #### 21523-7 ####[facility] [id number] [place] [address] [place] AMERICAGlucose [Mass/Vol]179 mg/iDSayn20-639LvlykvixbKettering Health Behavioral Medical Center on above:Order Comment: Specimen Type: VENOUS BLOOD SPECIMENOrdering Facility: [facility] Address: [address] [place] [address] Performed By: #### 93762-2 ####[facility] [id number] [place] [address] [place] HCO3 (Bld) [Moles/Vol]26 mmol/NHjaurr14-62QgpaeuybtKettering Health Behavioral Medical Center on above:Order Comment: Specimen Type: VENOUS BLOOD SPECIMENOrdering Facility: [facility] Address: [address] [place] [address] Performed By: #### 95565-4 ####[facility] [id number] [place] [address] [place] Hematocrit (Bld) [Volume fraction]25.3 %Low39.0-51.0[facility] Comment on above:Order Comment: Specimen Type: VENOUS BLOOD SPECIMENOrdering Facility: [facility] Address: [address] [place], [place] [address]Performed By: #### 71896-8 ####[facility] [id number] [place] [address] [place] Hemoglobin (Bld) [Mass/Vol]8.1 g/dLLow13.0-17.0[facility] on above:Order Comment: Specimen Type: VENOUS BLOOD SPECIMENOrdering Facility: [facility] Address: [address] [place] [address] Performed By: #### 23442-7 ####[facility] [id number] [place] [address] [place] Lactate [Moles/Vol]1.1 mmol/LNormal0.5-2.2CSt. [facility] on above:Order Comment: Specimen Type: VENOUS BLOOD SPECIMENOrdering Facility: [facility] Address: [address] [place] [address] Performed By: #### 76096-0 ####[facility] LABCLIA [id number] [place] [address] [place] LITERS2 Liters/minNormalClevelMarymount Hospital on above:Order Comment: Specimen Type: VENOUS BLOOD SPECIMENOrdering Facility: [facility] Address: [address] [place], [place] [address]Performed By: #### 19294-8 ####[facility] LABCLIA [id number] [address] STATES OF [facility] COUNTY HOSPITALMethemoglobin (Bld) [Mass fraction]0.7 %Normal0.0-1.5CSt. [facility] on above: Order Comment: Specimen Type: VENOUS BLOOD SPECIMENOrdering Facility: [facility] Address: [address] [place], [place] [address]Performed By: #### 85409-8 ####[facility] [id number] [address] STATES OF AMERICAO2 THERAPYNC = Nasal CannulaNormalCSt. Vincent Hospital on above:Order Comment: Specimen Type: VENOUS BLOOD SPECIMENOrdering Facility: [facility] Ad dress: [address] [place], [place] [address]Performed By: #### 55420-9 ####[facility] [id number] [place] [address] [place] AMERICAOxygen (BldV) [Partial pressure] 33 mm[Hg]Nhh56-26ZyiwzsmgfKettering Health Behavioral Medical Center on above:Order Comment: Specimen Type: VENOUS BLOOD SPECIMENOrdering Facility: [facility] Address: [address] [place], [place] [address]Performed By: #### 80320-9 ####[facility] LABCLIA [id number] [address] STATES OF AMERICAOxygen saturation in Venous blood55 %Xzb84-13LaypkqmjdKettering Health Behavioral Medical Center on above:Order Comment: Specimen Type: VENOUS BLOOD SPECIMENOrdering Facility: [facility] Address: [address] [place], [place] [address]Performed By: #### 67320-3 ####[facility] LABCLIA [id number] [place] [address] [place] AMERICAOxyhemoglobin (BldV) [Mass fraction]54 %Hiz05-03LsizppvduKettering Health Behavioral Medical Center on above:Order Comment: Specimen Type: VENOUS BLOOD SPECIMENOrdering Facility: [facility] Address: [address] [place], [place] [address]Performed By: #### 94344-4 ####[facility] LABCLIA [id number] [place] [address] [place] AMERICApH (BldV)7.35 [pH] Normal7.32-7.42[facility] on above:Order Comment: Specimen Type: VENOUS BLOOD SPECIMENOrdering Facility: [facility] Address: [address] [place], [place] [address]Performed By: #### 99127-5 ####[facility] LABCLIA [id number] [place] [address] [place] AMERICAPotassium [Moles/Vol] 4.5 mmol/LNormal3.5-5.0[facility] on above:Order Comment: Specimen Type: VENOUS BLOOD SPECIMENOrdering Facility: [facility] Address: [address] [place], [place] [address]Performed By: #### 15520-1 ####[facility] [id number] [place] [address] [place] AMERICASodium [Moles/Vol]134 mmol/PWvl460-115CwvtyozyyKettering Health Behavioral Medical Center on above:Order Comment: Specimen Type: VENOUS BLOOD SPECIMENOrdering Facility: [facility] Address: [address] [place], [place] [address]Performed By: #### 23387-5 ####[facility] [id number] [place] [address] [place] AMERICABase excess Calc (BldV) [Moles/Vol]1 mmol/LNormal0-2CSt. [facility] on above: Order Comment: Specimen Type: VENOUS BLOOD SPECIMENOrdering Facility: [facility] Address: [address] [place], [place] [address]Performed By: #### 29486-5 ####[facility] LABCLIA [id number] [place] [address] [place] AMERICABody vievdgmfbiz93.6 [degF]NormalKettering Health Behavioral Medical Center on above:Order Comment: Specimen Type: VENOUS BLOOD SPECIMENOrdering Facility: [facility] Ad dress: [address] [place], [place] [address]Performed By: #### 83795-4 ####[facility] [id number] [place] [address] [place] AMERICACalcium.ionized (Bld) [Mass/Vol] 1.18 mmol/LNormal1.08-1.30[facility] on above:Order Comment: Specimen Type: VENOUS BLOOD SPECIMENOrdering Facility: [facility] Address: [address] [place], [place] [address]Performed By: #### 96044-3 ####[facility] [id number] [place] [address] [place] AMERICACalcium.ionized adjusted to pH 7.4 (BldA) [Moles/Vol]1.17 mmol/LNormal1.08-1.30[facility] on above:Order Comment: Specimen Type: VENOUS BLOOD SPECIMENOrdering Facility: [facility] Address: [address] [place], [place] [address]Performed By: #### 37687-2 ####[facility] [id number] [place] [address] [place] AMERICACarboxyhemoglobin (BldV) [Mass fraction]1.5 %Normal0.0-2.0[facility] on above:Order Comment: Specimen Type: VENOUS BLOOD SPECIMENOrdering Facility: [facility] Address: [address] [place], [place] [address]Result Comment: Carboxyhemoglobin Reference Range for Smokers: 2.0-8.0%Performed By: #### 56332-3 ####[facility] LABCLIA [id number] [place] [address] [place] AMERICACO2 (BldV) [Partial pressure]46 mm[Hg]Fgqbfm26-18FapvemawvSelect Medical Specialty Hospital - Cleveland-FairhillComment on above:Order Comment: Specimen Type: VENOUS BLOOD SPECIMENOrdering Facility: [facility] Address: [address] [place], [place] [address]Performed By: #### 06500-8 ####[facility] LABCLIA [id number] [place] [address] [place] AMERICAGlucose [Mass/Vol]135 mg/uWAino74-322PcomkvjabSelect Medical Specialty Hospital - Cleveland-FairhillComment on above:Order Comment: Specimen Type: VENOUS BLOOD SPECIMENOrdering Facility: [facility] Address: [address] [place] [address] Performed By: #### 36708-9 ####[facility] [id number] [place] [address] [place] HCO3 (Bld) [Moles/Vol]26 mmol/GEhhkkz24-28GzslsidzlSelect Medical Specialty Hospital - [facility]-FairhillComselect specialty hospital[facility] on above:Order Comment: Specimen Type: VENOUS BLOOD SPECIMENOrdering Facility: [facility] Address: [address] [place] [address] Performed By: #### 81084-7 ####[facility] [id number] [place] [address] [place] Hematocrit (Bld) [Volume fraction]26.6 %Low39.0-51.0[facility] Comment on above:Order Comment: Specimen Type: VENOUS BLOOD SPECIMENOrdering Facility: [facility] Address: [address] [place], [place] [address]Performed By: #### 12471-0 ####[facility] [id number] [place] [address] [place] Hemoglobin (Bld) [Mass/Vol]8.6 g/dLLow13.0-17.0[facility] on above:Order Comment: Specimen Type: VENOUS BLOOD SPECIMENOrdering Facility: [facility] Address: [address] [place] [address] Performed By: #### 48689-0 ####[facility] LABCLIA [id number] [place] [address] [place] Lactate [Moles/Vol]1.3 mmol/LNormal0.5-2.2CSt. [facility] on above:Order Comment: Specimen Type: VENOUS BLOOD SPECIMENOrdering Facility: [facility] Address: [address] [place] [address] Performed By: #### 96223-8 ####[facility] LABCLIA [id number] [place] [address] [place] Methemoglobin (Bld) [Mass fraction]0.6 %Normal0.0-1.5CSumma Health [facility] Comment on above:Order Comment: Specimen Type: VENOUS BLOOD SPECIMENOrdering Facility: [facility] Address: [address] [place], [place] [address]Performed By: #### 58927-0 ####[facility] LABIA [id number] [place] [address] [place] O2 THERAPYNC = Nasal CannulaNormalCSt. [facility] Hospital on above: Order Comment: Specimen Type: VENOUS BLOOD SPECIMENOrdering Facility: [facility] Address: [address] [place], [place] [address]Performed By: #### 86957-9 ####[facility] LABCLIA [id number] [place] [address] [place] AMERICAOxygen (BldV) [Partial pressure]34 mm[Hg]Hzi52-34LrhsuntstKettering Health [facility]al [facility] Center on above:Order Comment: Specimen Type: VENOUS BLOOD SPECIMENOrdering Facility: [facility] Address: [address] [place], [place] [address]Performed By: #### 19941-1 ####[facility] LABCLIA [id number] [place] [address] [place] AMERICAOxygen saturation in Venous blood58 %Zcj32-07NruiihbwfKettering Health Behavioral Medical Center on above:Order Comment: Specimen Type: VENOUS BLOOD SPECIMENOrdering Facility: [facility] Address: [address] [place], [place] [address]Performed By: #### 55310-3 ####[facility] LABCLIA [id number] [place] [address] [place] AMERICAOxyhemoglobin (BldV) [Mass fraction]57 %Whn41-68GjpqkgxpvKettering Health Behavioral Medical Center on above:Order Comment: Specimen Type: VENOUS BLOOD SPECIMENOrdering Facility: [facility] Address: [address] [place], [place] [address]Performed By: #### 29553-7 ####[facility] LABIA [id number] [place] [address] [place] AMERICApH (BldV)7.37 [pH] Normal7.32-7.42[facility] on above:Order Comment: Specimen Type: VENOUS BLOOD SPECIMENOrdering Facility: [facility] Address: [address] [place], [place] [address]Performed By: #### 74793-1 ####[facility] [id number] [place] [address] [place] AMERICAPotassium [Moles/Vol] 4.6 mmol/LNormal3.5-5.0[facility] on above:Order Comment: Specimen Type: VENOUS BLOOD SPECIMENOrdering Facility: [facility] Address: [address] [place], [place] [address]Performed By: #### [id number] ####[facility] LABCLIA [id number] [place] [address] [place] AMERICASodium [Moles/Vol]135 mmol/YNin656-337IdgonufunKettering Health [facility] on above:Order Comment: Specimen Type: VENOUS BLOOD SPECIMENOrdering Facility: [facility] Address: [address] [place], [place] [address]Performed By: #### [id number] ####[facility] [id number] [place] [address] [place] AMERICABase excess Calc (BldV) [Moles/Vol]3 mmol/LHigh0-2CSt. [facility] on above: Order Comment: Specimen Type: VENOUS BLOOD SPECIMENOrdering Facility: [facility] Address: [address] [place], [place] [address]Performed By: #### [id number] ####[facility] [id number] [place] [address] [place] AMERICABody xezxrlmmrol38.6 [degF]NormalKettering Health [facility]al [facility] on above:Order Comment: Specimen Type: VENOUS BLOOD SPECIMENOrdering Facility: [facility] Ad dress: [address] [place], [place] [address]Performed By: #### 40744-1 ####[facility] LABIA [id number] [place] [address] [place] AMERICACalcium.ionized (Bld) [Mass/Vol] 1.22 mmol/LNormal1.08-1.30[facility] on above:Order Comment: Specimen Type: VENOUS BLOOD SPECIMENOrdering Facility: [facility] Address: [address] [place], [place] [address]Performed By: #### 67754-0 ####[facility] [id number] [place] [address] [place] AMERICACalcium.ionized adjusted to pH 7.4 (BldA) [Moles/Vol]1.19 mmol/LNormal1.08-1.30[facility] on above:Order Comment: Specimen Type: VENOUS BLOOD SPECIMENOrdering Facility: [facility] Address: [address] [place], [place] [address]Performed By: #### 34564-5 ####[facility] LABCLIA [id number] [place] [address] [place] [facility] HOSPITALCarboxyhemoglobin (BldV) [Mass fraction]1.3 %Normal0.0-2.0[facility] on above:Order Comment: Specimen Type: VENOUS BLOOD SPECIMENOrdering Facility: [facility] Address: [address] [place], [place] [address]Result Comment: Carboxyhemoglobin Reference Range for Smokers: 2.0-8.0%Performed By: #### 18344-9 ####[facility] [id number] [place] [address] [place] AMERICACO2 (BldV) [Partial pressure]50 mm[Hg]Qtcqbh84-94WqijuxrqpKet[facility] on above:Order Comment: Specimen Type: VENOUS BLOOD SPECIMENOrdering Facility: [facility] Address: [address] [place], [place] [address]Performed By: #### 84071-1 ####[facility] [id number] [place] [address] [place] AMERICAGlucose [Mass/Vol]119 mg/wJJtgl28-949TsaghgopjKet[facility] Health [facility]al [facility] on above:Order Comment: Specimen Type: VENOUS BLOOD SPECIMENOrdering Facility: [facility] Address: [address] [place] [address] Performed By: #### 12154-9 ####[facility] [id number] [place] [address] [place] HCO3 (Bld) [Moles/Vol]28 mmol/OJvnirx46-66MtqqzrgyhKettering Health [facility]al Medical Center on above:Order Comment: Specimen Type: VENOUS BLOOD SPECIMENOrdering Facility: [facility] Address: [address] [place] [address] Performed By: #### 81980-4 ####[facility] [id number] [place] [address] [place] Hematocrit (Bld) [Volume fraction]25.3 %Low39.0-51.0[facility] Comment on above:Order Comment: Specimen Type: VENOUS BLOOD SPECIMENOrdering Facility: [facility] Address: [address] [place], [place] [address]Performed By: #### 31353-6 ####[facility] [id number] [place] [address] [place] Hemoglobin (Bld) [Mass/Vol]8.1 g/dLLow13.0-17.0[facility]-FairhillComment on above:Order Comment: Specimen Type: VENOUS BLOOD SPECIMENOrdering Facility: [facility] Address: [address] [place] [address] Performed By: #### 48537-1 ####[facility] [id number] [place] [address] [place] Lactate [Moles/Vol]1.8 mmol/LNormal0.5-2.2CSumma Health Akron CampusComment on above:Order Comment: Specimen Type: VENOUS BLOOD SPECIMENOrdering Facility: [facility] Address: [address] [place] [address] Performed By: #### 66218-4 ####[facility] [id number] [place] [address] [place] LITERS2 Liters/minNormalCSumma Health Akron CampusComment on above:Order Comment: Specimen Type: VENOUS BLOOD SPECIMENOrdering Facility: [facility] Address: [address] [place], [place] [address]Performed By: #### 36971-1 ####[facility] [id number] [place] [address] [place] AMERICAMethemoglobin (Bld) [Mass fraction]0.6 %Normal0.0-1.5CSumma Health Akron CampusComselect specialty hospital-[facility] on above: Order Comment: Specimen Type: VENOUS BLOOD SPECIMENOrdering Facility: [facility] Address: [address] [place], [place] [address]Performed By: #### 52900-3 ####[facility] LABCLIA [id number] [place] [address] [place] AMERICAO2 THERAPYNC = Nasal CannulaNormalCSt. Vincent Hospital on above:Order Comment: Specimen Type: VENOUS BLOOD SPECIMENOrdering Facility: [facility] Ad dress: [address] [place], [place] [address]Performed By: #### 44127-4 ####[facility] LABCLIA [id number] [place] [address] [place] AMERICAOxygen (BldV) [Partial pressure] 36 mm[Hg]Qhocxu10-59IqimzuwwaKettering [facility] on above:Order Comment: Specimen Type: VENOUS BLOOD SPECIMENOrdering Facility: [facility] Address: [address] [place], [place] [address]Performed By: #### 18857-1 ####[facility] LABCLIA [id number] [place] [address] [place] AMERICAOxygen saturation in Venous blood64 %Jlljyx54-04FkzsvxexiKet[facility] on above:Order Comment: Specimen Type: VENOUS BLOOD SPECIMENOrdering Facility: [facility] Address: [address] [place], [place] [address]Performed By: #### 51321-4 ####[facility] LABCLIA [id number] [place] [address] [place] AMERICAOxyhemoglobin (BldV) [Mass fraction]63 %Aajdqj66-76NtlrwrezpKettering Health [facility]al [facility] Center on above:Order Comment: Specimen Type: VENOUS BLOOD SPECIMENOrdering Facility: [facility] Address: [address] [place], [place] [address]Performed By: #### 64525-5 ####[facility] LABCLIA [id number] [place] [id number] [place] AMERICApH (BldV)7.36 [pH] Normal7.32-7.42[facility] on above:Order Comment: Specimen Type: VENOUS BLOOD SPECIMENOrdering Facility: [facility] Address: [address] [place], [place] [address]Performed By: #### 03844-7 ####[facility] LABCLIA [id number] [place] [address] [place] AMERICAPotassium [Moles/Vol] 4.6 mmol/LNormal3.5-5.0[facility] on above:Order Comment: Specimen Type: VENOUS BLOOD SPECIMENOrdering Facility: [facility] Address: [address] [place], [place] [address]Performed By: #### 85655-7 ####[facility] LABCLIA [id number] [place] [address] [place] AMERICASodium [Moles/Vol]135 mmol/YAiu824-831SwoxuiioiKet[facility] Health [facility] on above:Order Comment: Specimen Type: VENOUS BLOOD SPECIMENOrdering Facility: [facility] Address: [address] [place], [place] [address]Performed By: #### 04885-7 ####[facility] [id number] [place] [address] [place] AMERICABase excess Calc (BldV) [Moles/Vol]2 mmol/LNormal0-2CSt. Vincent Hospital on above: Order Comment: Specimen Type: VENOUS BLOOD SPECIMENOrdering Facility: [facility] Address: [address] [place], [place] [address]Performed By: #### 43303-1 ####[facility] [id number] [place] [id number] [place] AMERICABody grttecoknzn66.6 [degF]NormalKettering Health Behavioral Medical Center on above:Order Comment: Specimen Type: VENOUS BLOOD SPECIMENOrdering Facility: [facility] Ad dress: [address] [place], [place] [address]Performed By: #### 64750-4 ####[facility] LABCLIA [id number] [place] [address] [place] AMERICACalcium.ionized (Bld) [Mass/Vol] 1.19 mmol/LNormal1.08-1.30[facility] on above:Order Comment: Specimen Type: VENOUS BLOOD SPECIMENOrdering Facility: [facility] Address: [address] [place], [place] [address]Performed By: #### 40627-8 ####[facility] [id number] [place] [address] [place] AMERICACalcium.ionized adjusted to pH 7.4 (BldA) [Moles/Vol]1.15 mmol/LNormal1.08-1.30[facility] on above:Order Comment: Specimen Type: VENOUS BLOOD SPECIMENOrdering Facility: [facility] Address: [address] [place], [place] [address]Performed By: #### 06611-7 ####[facility] [id number] [address] STATES OF AMERICACarboxyhemoglobin (BldV) [Mass fraction]1.6 %Normal0.0-2.0[facility] on above:Order Comment: Specimen Type: VENOUS BLOOD SPECIMENOrdering Facility: [facility] Address: [address] [place], [place] [address]Result Comment: Carboxyhemoglobin Reference Range for Smokers: 2.0-8.0%Performed By: #### 57320-9 ####[facility] [id number] [place] [address] [place] AMERICACO2 (BldV) [Partial pressure]53 mm[Hg]Botnbp68-60SzglhcjuvKettering Health Behavioral Medical Center on above:Order Comment: Specimen Type: VENOUS BLOOD SPECIMENOrdering Facility: [facility] Address: [address] [place], [place] [address]Performed By: #### 40458-0 ####[facility] LABKER[facility] [id number] [place] [address] [place] AMERICAGlucose [Mass/Vol]167 mg/sVUkdr27-521BclrlbsjuKettering Health [facility]al [facility] Center on above:Order Comment: Specimen Type: VENOUS BLOOD SPECIMENOrdering Facility: [facility] Address: [address] [place] [address] Performed By: #### 59708-4 ####[facility] LABCLIA [id number] [place] [address] [place] HCO3 (Bld) [Moles/Vol]28 mmol/ZToetln34-00XspnszaoxKet[facility] Health [facility] on above:Order Comment: Specimen Type: VENOUS BLOOD SPECIMENOrdering Facility: [facility] Address: [address] [place] [address] Performed By: #### 51474-9 ####[facility] LABCLIA [id number] [place] [address] [place] Hematocrit (Bld) [Volume fraction]26.2 %Low39.0-51.0[facility] Comment on above:Order Comment: Specimen Type: VENOUS BLOOD SPECIMENOrdering Facility: [facility] Address: [address] [place], [place] [address]Performed By: #### 02023-3 ####[facility] LABCLIA [id number] [place] [address] [place] Hemoglobin (Bld) [Mass/Vol]8.4 g/dLLow13.0-17.0[facility] on above:Order Comment: Specimen Type: VENOUS BLOOD SPECIMENOrdering Facility: [facility] Address: [address] [place] [address] Performed By: #### 90034-2 ####[facility] LABCLIA [id number] [place] [address] [place] Lactate [Moles/Vol]1.5 mmol/LNormal0.5-2.2CSumma Health Akron CampusComselect specialty hospital-[facility] on above:Order Comment: Specimen Type: VENOUS BLOOD SPECIMENOrdering Facility: [facility] Address: [address] [place] [id number] Performed By: #### 77459-8 ####[facility] LABCLIA [id number] [place] [address] [place] LITERS2 Liters/minNormalCSt. Vincent Hospital on above:Order Comment: Specimen Type: VENOUS BLOOD SPECIMENOrdering Facility: [facility] Address: [address] [place], [place] [address]Performed By: #### 55994-0 ####[facility] LABCLIA [id number] [place] [address] [place] AMERICAMethemoglobin (Bld) [Mass fraction]0.5 %Normal0.0-1.5CSt. Vincent Hospital on above: Order Comment: Specimen Type: VENOUS BLOOD SPECIMENOrdering Facility: [facility] Address: [address] [place], [place] [address]Performed By: #### 55686-0 ####[facility] LABCLIA [id number] [place] [address] [place] AMERICAO2 THERAPYNC = Nasal CannulaNormalCSumma Health Akron CampusComselect specialty hospital-[facility] on above:Order Comment: Specimen Type: VENOUS BLOOD SPECIMENOrdering Facility: [facility] Ad dress: [address] [place], [place] [address]Performed By: #### 29919-1 ####[facility] LABCLIA [id number] [place] [id number] [place] AMERICAOxygen (BldV) [Partial pressure] 40 mm[Hg]Vfnzjl07-63QlfvedkrqKet[facility] on above:Order Comment: Specimen Type: VENOUS BLOOD SPECIMENOrdering Facility: [facility] Address: [address] [place], [place] [address]Performed By: #### 35315-0 ####[facility] LABCLIA [id number] [address] [address] [place] AMERICAOxygen saturation in Venous blood68 %Obydhy99-93WddywtidvKettering Health Behavioral [facility] Center on above:Order Comment: Specimen Type: VENOUS BLOOD SPECIMENOrdering Facility: [facility] Address: [address] [place], [place] [address]Performed By: #### 07062-0 ####[facility] [id number] [address] [address] [place] AMERICAOxyhemoglobin (BldV) [Mass fraction]66 %Siojtx00-20UfhipnpqbKettering Health Behavioral Medical Center on above:Order Comment: Specimen Type: VENOUS BLOOD SPECIMENOrdering Facility: [facility] Address: [address] [place], [place] [address]Performed By: #### 27953-4 ####[facility] [id number] [place] [address] [place] AMERICApH (BldV)7.34 [pH] Normal7.32-7.42[facility] on above:Order Comment: Specimen Type: VENOUS BLOOD SPECIMENOrdering Facility: [facility] Address: [address] [place], [place] [address]Performed By: #### 91290-0 ####[facility] [id number] [place] [address] [place] AMERICAPotassium [Moles/Vol] 4.8 mmol/LNormal3.5-5.0[facility] on above:Order Comment: Specimen Type: VENOUS BLOOD SPECIMENOrdering Facility: [facility] Address: [address] [place], [place] [address]Performed By: #### 81872-7 ####[facility] [id number] [place] [address] [place] AMERICASodium [Moles/Vol]134 mmol/QJwj981-430IrecncnhrK[facility] on above:Order Comment: Specimen Type: VENOUS BLOOD SPECIMENOrdering Facility: [facility] Address: [address] [place], [place] [address]Performed By: #### 34719-7 ####[facility] LABCLIA [id number] [place] [address] [place] AMERICABase excess Calc (BldV) [Moles/Vol]2 mmol/LNormal0-2CSt. [facility] Hospital on above: Order Comment: Specimen Type: VENOUS BLOOD SPECIMENOrdering Facility: [facility] Address: [address] [place], [place] [address]Performed By: #### 80108-4 ####[facility] [id number] [place] [address] [place] AMERICABody nlmqrepoqbc42.6 [degF]NormalKettering Health Behavioral Medical Center on above:Order Comment: Specimen Type: VENOUS BLOOD SPECIMENOrdering Facility: [facility] Ad dress: [address] [place], [place] [address]Performed By: #### 25892-9 ####[facility] [id number] [address] STATES OF AMERICACalcium.ionized (Bld) [Mass/Vol] 1.19 mmol/LNormal1.08-1.30[facility] on above:Order Comment: Specimen Type: VENOUS BLOOD SPECIMENOrdering Facility: [facility] Address: [address] [place], [place] [address]Performed By: #### 86713-4 ####[facility] [id number] [address] STATES OF AMERICACalcium.ionized adjusted to pH 7.4 (BldA) [Moles/Vol]1.17 mmol/LNormal1.08-1.30[facility] on above:Order Comment: Specimen Type: VENOUS BLOOD SPECIMENOrdering Facility: [facility] Address: [address] [place], [place] [address]Performed By: #### 24579-6 ####[facility] [id number] [address] OF [facility] COUNTY HOSPITALCarboxyhemoglobin (BldV) [Mass fraction]1.9 %Normal0.0-2.0[facility] on above:Order Comment: Specimen Type: VENOUS BLOOD SPECIMENOrdering Facility: [facility] Address: [address] [place], [place] [address]Result Comment: Carboxyhemoglobin Reference Range for Smokers: 2.0-8.0%Performed By: #### 59262-5 ####[facility] LABCLIA [id number] [place] [address] [place] AMERICACO2 (BldV) [Partial pressure]49 mm[Hg]Wmeiin53-92ZaiudbemhSelect Medical Specialty Hospital - Cleveland-FairhillComment on above:Order Comment: Specimen Type: VENOUS BLOOD SPECIMENOrdering Facility: [facility] Address: [address] [place], [place] [address]Performed By: #### 85064-6 ####[facility] LABCLIA [id number] [place] [address] [place] AMERICAGlucose [Mass/Vol]153 mg/kRHfim02-230NctuilewaSuburban Community Hospital & Brentwood Hospitalment on above:Order Comment: Specimen Type: VENOUS BLOOD SPECIMENOrdering Facility: [facility] Address: [address] [place] [address] Performed By: #### 37349-0 ####[facility] [id number] [place] [address] [place] HCO3 (Bld) [Moles/Vol]27 mmol/KEtmmcv48-39DjymunjwhKettering [facility] on above:Order Comment: Specimen Type: VENOUS BLOOD SPECIMENOrdering Facility: [facility] Address: [address] [place] [address] Performed By: #### 55905-6 ####[facility] LABCLIA [id number] [place] [address] [place] Hematocrit (Bld) [Volume fraction]26.1 %Low39.0-51.0[facility] Comment on above:Order Comment: Specimen Type: VENOUS BLOOD SPECIMENOrdering Facility: [facility] Address: [address] [place], [place] [address]Performed By: #### 06186-7 ####[facility] LABCLIA [id number] [place] [address] [place] Hemoglobin (Bld) [Mass/Vol]8.4 g/dLLow13.0-17.0[facility] on above:Order Comment: Specimen Type: VENOUS BLOOD SPECIMENOrdering Facility: [facility] Address: [address] [place] [address] Performed By: #### 86328-2 ####[facility] LABCLIA [id number] [place] [address] [place] Lactate [Moles/Vol]1.2 mmol/LNormal0.5-2.2ClevelMarymount Hospital on above:Order Comment: Specimen Type: VENOUS BLOOD SPECIMENOrdering Facility: [facility] Address: [address] [place] [address] Performed By: #### 64230-0 ####[facility] LABCLIA [id number] [place] [address] [place] LITERS2 Liters/minNormalCSt. [facility] Hospital on above:Order Comment: Specimen Type: VENOUS BLOOD SPECIMENOrdering Facility: [facility] Address: [address] [place], [place] [address]Performed By: #### 29511-1 ####[facility] LABCLIA [id number] [place] [address] [place] AMERICAMethemoglobin (Bld) [Mass fraction]0.4 %Normal0.0-1.5CSt. [facility] Hospital on above: Order Comment: Specimen Type: VENOUS BLOOD SPECIMENOrdering Facility: [facility] Address: [address] [place], [place] [address]Performed By: #### 03190-2 ####[facility] LABCLIA [id number] [address] STATES OF AMERICAO2 THERAPYNC = Nasal CannulaNormalCSt. Vincent Hospital on above:Order Comment: Specimen Type: VENOUS BLOOD SPECIMENOrdering Facility: [facility] Ad dress: [address] [place], [place] [address]Performed By: #### 42821-1 ####[facility] LABCLIA [id number] [place] [id number] [place] AMERICAOxygen (BldV) [Partial pressure] 54 mm[Hg]Ncen15-46XscyjggjoKettering Health Behavioral Medical Center on above:Order Comment: Specimen Type: VENOUS BLOOD SPECIMENOrdering Facility: [facility] Address: [address] [place], [place] [address]Performed By: #### 20410-5 ####[facility] [id number] [place] [address] [place] AMERICAOxygen saturation in Venous blood86 %Lpbh51-97CrjswhztcKettering Health Behavioral [facility] Center on above:Order Comment: Specimen Type: VENOUS BLOOD SPECIMENOrdering Facility: [facility] Address: [address] [place], [place] [address]Performed By: #### 27691-0 ####[facility] [id number] [place] [id number] [place] AMERICAOxyhemoglobin (BldV) [Mass fraction]84 %Rjavyg20-29JelktlkdyKettering Health Behavioral Medical Center on above:Order Comment: Specimen Type: VENOUS BLOOD SPECIMENOrdering Facility: [facility] Address: [address] [place], [place] [address]Performed By: #### 98599-9 ####[facility] [id number] [place] [id number] [place] AMERICApH (BldV)7.36 [pH] Normal7.32-7.42[facility] on above:Order Comment: Specimen Type: VENOUS BLOOD SPECIMENOrdering Facility: [facility] Address: [address] [place], [place] [address]Performed By: #### 29979-5 ####[facility] LABCLIA [id number] [place] [id number] [place] AMERICAPotassium [Moles/Vol] 4.8 mmol/LNormal3.5-5.0[facility] on above:Order Comment: Specimen Type: VENOUS BLOOD SPECIMENOrdering Facility: [facility] Address: [address] [place], [place] [address]Performed By: #### 28610-6 ####[facility] LABCLIA [id number] [place] [address] [place] AMERICASodium [Moles/Vol]135 mmol/CPxp209-315EokpgfyxkKettering Health Behavioral [facility] Center on above:Order Comment: Specimen Type: VENOUS BLOOD SPECIMENOrdering Facility: [facility] Address: [address] [place], [place] [address]Performed By: #### 18099-4 ####[facility] LABCLIA [id number] [place] [address] [place] AMERICAXR CHEST 1V FRONTAL PORTon 51-57-9425CL CHEST 1V FRONTAL PORTNormalCSumma Health Akron Campus ARTERIAL BLOOD GASESon 90-61-0450Nhqe excess Calc (Bld) [Moles/Vol]0 mmol/L Normal0-2CSt. [facility] Hospital on above:Order Comment: Specimen Type: ARTERIAL BLOOD SPECIMENOrdering Facility: [facility] Address: [address] [place], [place] [address]Performed By: #### ALLBG ####[facility] LABCLIA [id number] [place] [address] [place] AMERICABody iwnwmvaixbz04.6 [degF]Normal [facility] on above:Order Comment: Specimen Type: ARTERIAL BLOOD SPECIMENOrdering Facility: [facility]ITALAddress: [address] [place], [place] [address]Performed By: #### ALLBG ####[facility] LABCLIA [id number] [place] [address] [place] AMERICAOrder Comment: Specimen Type: VENOUS BLOOD SPECIMENOrdering Facility: [facility] Address: [address] [place], [place] [address]Performed By: #### [id number] ####[facility] LABCLIA [id number] [place] [address] [place] AMERICACalcium.ionized (Bld) [Mass/Vol]1.22 mmol/LNormal1.08-1.30[facility] on above:Order Comment: Specimen Type: ARTERIAL BLOOD SPECIMENOrdering Facility: [facility]ITALAddress: [address] [place], [place] [address]Performed By: #### ALLBG ####[facility] LABIA [id number] [place] [address] [place] AMERICACalcium.ionized adjusted to pH 7.4 (BldA) [Moles/Vol]1.22 mmol/LNormal 1.08-1.30[facility] on above:Order Comment: Specimen Type: ARTERIAL BLOOD SPECIMENOrdering Facility: [facility] Address: [address] [place], [place] [address]Performed By: #### ALLBG ####[facility] LABIA [id number] [address] STATES OF AMERICACarboxyhemoglobin (BldA) [Mass fraction]1.8 %Normal0.0-2.0[facility] on above:Order Comment: Specimen Type: ARTERIAL BLOOD SPECIMENOrdering Facility: [facility] [facility]Address: [address] [place], [place] [address]Result Comment: Carboxyhemoglobin Reference Range for Smokers: 2.0-8.0%Performed By: #### ALLBG ####[facility] LABCLIA [id number] [place] [address] [place] AMERICACO2 (Bld) [Partial pressure]40 mm NcMlqiml54-81KszhwothdSelect Medical Specialty Hospital - Cleveland-FairhillComment on above:Order Comment: Specimen Type: ARTERIAL BLOOD SPECIMENOrdering Facility: [facility] Address: [address] [place], [place] [address]Performed By: #### ALLBG ####[facility] LABCLIA [id number] [place] [address] [place] AMERICAGlucose [Mass/Vol]114 mg/dLHigh 60-105[facility]-FairhillComment on above:Order Comment: Specimen Type: ARTERIAL BLOOD SPECIMENOrdering Facility: [facility]Address: [address] [place], [place] [address]Performed By: #### ALLBG ####[facility] LABCLIA [id number] [place] [address] [place] AMERICAOrder Comment: Specimen Type: VENOUS BLOOD SPECIMENOrdering Facility: [facility] Address: [address] [place], [place] [address]Performed By: #### 09048-0 ####[facility] LABCLIA [id number] [place] [address] [place] AMERICAHCO3 (Bld) [Moles/Vol]24 mmol/ILlmvnz95-01QkjfkgndsSelect Medical Specialty [facility] Comment on above:Order Comment: Specimen Type: ARTERIAL BLOOD SPECIMENOrdering Facility: [facility]Address: [address] [place], [place] [address]Performed By: #### ALLBG ####[facility] LABCLIA [id number] [place] [address] [place] Hematocrit (Bld) [Volume fraction]27.9 %Low39.0-51.0[facility] Comment on above:Order Comment: Specimen Type: ARTERIAL BLOOD SPECIMENOrdering Facility: [facility]Address: [address] [place], [place] [address]Performed By: #### ALLBG ####[facility] LABCLIA [id number] [address], [place] [address] [place] Hemoglobin (Bld) [Mass/Vol]9.0 g/dLLow13.0-17.0[facility] on above:Order Comment: Specimen Type: ARTERIAL BLOOD SPECIMENOrdering Facility: [facility]Address: [address] [place], [place] [address]Performed By: #### ALLBG ####[facility] LABCLIA [id number] [place] [address] [place] Lactate [Moles/Vol]2.3 mmol/LHigh0.5-2.2CSt. [facility] Hospital on above:Order Comment: Specimen Type: ARTERIAL BLOOD SPECIMENOrdering Facility: [facility]Address: [address] [place] [id number] Performed By: #### ALLBG ####[facility] LABCLIA [id number] [place] [address] [place] AMERICALITERS2 Liters/minNormalCSt. Vincent Hospital on above:Order Comment: Specimen Type: ARTERIAL BLOOD SPECIMENOrdering Facility: [facility]Address: [address] [place], [place] [address]Performed By: #### ALLBG ####[facility] LABCLIA [id number] [place] [address] [place] AMERICAMethemoglobin (Bld) [Mass fraction]0.8 %Normal0.0-1.5CSt. [facility] Hospital on above:Order Comment: Specimen Type: ARTERIAL BLOOD SPECIMENOrdering Facility: [facility]Address: [address] [place] [id number] By: #### ALLBG ####[facility] LABCLIA [id number] [place] [address] [place] AMERICAO2 THERAPYNC = Nasal Cannula NormalKettering Health Behavioral Medical Center on above:Order Comment: Specimen Type: ARTERIAL BLOOD SPECIMENOrdering Facility: [facility]Address: [address] [place], [place] [address]Performed By: #### ALLBG ####[facility] LABCLIA [id number] [address] AMERICAOrder Comment: Specimen Type: VENOUS BLOOD SPECIMENOrdering Facility: [facility] Address: [address] [place], [place] [address]Performed By: #### 98713-5 ####[facility] LABCLIA [id number] [place] [id number] [facility] COUNTY HOSPITALOxygen (Bld) [Partial pressure]101 mm PwJciy00-96OdabbibmrKettering Health Behavioral Medical Center on above:Order Comment: Specimen Type: ARTERIAL BLOOD SPECIMENOrdering Facility: [facility]Address: [address] [place] [id number] By: #### ALLBG ####[facility] LABIA [id number] [address] OF HENRY COUNTY HOSPITALOxyhemoglobin (BldA) [Mass fraction]96 %Cndqmh22-88GocsgiankKettering Health Behavioral Medical Center on above:Order Comment: Specimen Type: ARTERIAL BLOOD SPECIMENOrdering Facility: [facility]Address: [address] [place], [place] [address]Performed By: #### ALLBG ####[facility] LABCLIA [id number] [place] [address] [facility] HOSPITALpH (Bld)7.39 [pH]Normal7.35-7.45[facility] on above:Order Comment: Specimen Type: ARTERIAL BLOOD SPECIMENOrdering Facility: [facility]Address: [address] [place] [address] Performed By: #### ALLBG ####[facility] LABCLIA [id number] [place] [id number] [place] AMERICAPotassium [Moles/Vol]5.1 mmol/LHigh3.5-5.0[facility] on above:Order Comment: Specimen Type: ARTERIAL BLOOD SPECIMENOrdering Facility: [facility]Address: [address] [place], [place] [address]Performed By: #### ALLBG ####[facility] LABCLIA [id number] [place] [address] [place] AMERICASodium [Moles/Vol]137 mmol/L Exrsvi381-144KjxhtitiwKettering Health Behavioral Medical Center on above:Order Comment: Specimen Type: ARTERIAL BLOOD SPECIMENOrdering Facility: [facility] Address: [address] [place], [place] [address]Performed By: #### ALLBG ####[facility] LABCLIA [id number] [place] [address] [place] AMERICAOrder Comment: Specimen Type: VENOUS BLOOD SPECIMENOrdering Facility: [facility] Address: [address] [place], [place] [address]Performed By: #### 75153-0 ####[facility] LABCLIA [id number] [place] [address] [place] AMERICABase excess Calc (Bld) [Moles/Vol]0 mmol/LNormal 0-2CSt. [facility] Hospital on above:Order Comment: Specimen Type: ARTERIAL BLOOD SPECIMENOrdering Facility: [facility]Address: [address] [place], [place] [address]Performed By: #### ALLBG ####[facility] LABCLIA [id number] [place] [address] [place] AMERICACalcium.ionized (Bld) [Mass/Vol]1.20 mmol/LNormal 1.08-1.30[facility] on above:Order Comment: Specimen Type: ARTERIAL BLOOD SPECIMENOrdering Facility: [facility] Address: [address] [place], [place] [address]Performed By: #### ALLBG ####[facility] LABCLIA [id number] [place] [address] [place] AMERICACalcium.ionized adjusted to pH 7.4 (BldA) [Moles/Vol]1.19 mmol/LNormal1.08-1.30[facility] on above:Order Comment: Specimen Type: ARTERIAL BLOOD SPECIMENOrdering Facility: [facility]Address: [address] [place] [address] Performed By: #### ALLBG ####[facility] LABCLIA [id number] [place] [address] [place] Carboxyhemoglobin (BldA) [Mass fraction]1.8 %Normal0.0-2.0[facility] on above:Order Comment: Specimen Type: ARTERIAL BLOOD SPECIMENOrdering Facility: [facility]Address: [address] [place] [id number] Comment: Carboxyhemoglobin Reference Range for Smokers: 2.0-8.0%Performed By: #### ALLBG ####[facility] LABCLIA [id number] [place] [address] [place] AMERICACO2 (Bld) [Partial pressure]43 mm VmYmryvz60-96VgbhmmwzrSelect Medical [facility] Comment on above:Order Comment: Specimen Type: ARTERIAL BLOOD SPECIMENOrdering Facility: [facility]Address: [address] [place] [phone] By: #### ALLBG ####[facility] LABCLIA [id number] [place] [id number] [place] Glucose [Mass/Vol]125 mg/uEIsnu63-135OpoajzzlwKettering Health Behavioral [facility] Center on above: Order Comment: Specimen Type: ARTERIAL BLOOD SPECIMENOrdering Facility: [facility]Address: [address] [place] [address] Performed By: #### ALLBG ####[facility] LABCLIA [id number] [place] [id number] [place] AMERICAHCO3 (Bld) [Moles/Vol]24 mmol/GQacblh65-71QjscqgakbKettering Health Behavioral [facility] Center on above:Order Comment: Specimen Type: ARTERIAL BLOOD SPECIMENOrdering Facility: [facility]Address: [address] [place] [id number] By: #### ALLBG ####[facility] LABCLIA [id number] [place] [id number] [place] AMERICALactate [Moles/Vol]2.2 mmol/L Normal0.5-2.2CSt. [facility] Hospital on above:Order Comment: Specimen Type: ARTERIAL BLOOD SPECIMENOrdering Facility: [facility] Address: [address] [place], [place] [address]Performed By: #### ALLBG ####[facility] LABIA [id number] [place] [address] [place] AMERICAMethemoglobin (Bld) [Mass fraction]0.6 %Normal0.0-1.5CSt. [facility] Hospital on above:Order Comment: Specimen Type: ARTERIAL BLOOD SPECIMENOrdering Facility: [facility]Address: [address] [place] [phone] By: #### ALLBG ####[facility] LABIA [id number] [place] [id number] [place] AMERICAOxygen (Bld) [Partial pressure] 129 mm PfDiat87-48JgvnrrffwKettering Health [facility] Center on above:Order Comment: Specimen Type: ARTERIAL BLOOD SPECIMENOrdering Facility: [facility]Address: [address] [place] [phone] By: #### ALLBG ####[facility] LABCLIA [id number] [address] [address] [place] AMERICAOxyhemoglobin (BldA) [Mass fraction]97 %Rovtqa08-83UrstckmbpKettering Health Behavioral Medical Center on above:Order Comment: Specimen Type: ARTERIAL BLOOD SPECIMENOrdering Facility: [facility]Address: [address] [place] [phone] By: #### ALLBG ####[facility] LABCLIA [id number] [address] [address] [place] AMERICApH (Bld)7.38 [pH]Normal7.35-7.45 [facility] on above:Order Comment: Specimen Type: ARTERIAL BLOOD SPECIMENOrdering Facility: [facility]Address: [address] [place], [place] [address]Performed By: #### ALLBG ####[facility] LABCLIA [id number] [place] [address] [place] AMERICAPotassium [Moles/Vol]4.9 mmol/LNormal3.5-5.0 [facility] on above:Order Comment: Specimen Type: ARTERIAL BLOOD SPECIMENOrdering Facility: [facility]Address: [address] [place], [place] [address]Performed By: #### ALLBG ####[facility] LABCLIA [id number] [place] [address] [place] AMERICASodium [Moles/Vol]136 mmol/LXnwusk693-448MmvdefbbeKet[facility] on above:Order Comment: Specimen Type: ARTERIAL BLOOD SPECIMENOrdering Facility: [facility]Address: [address] [place], [place] [address]Performed By: #### ALLBG ####[facility] LABCLIA [id number] [place] [address] [place] AMERICABase deficit (BldA) [Moles/Vol]-1 mmol/SRjvios-6-5PxghcpevvKettering Health Behavioral Medical Center on above:Order Comment: Specimen Type: ARTERIAL BLOOD SPECIMENOrdering Facility: [facility]Address: [address] [place], [place] [address]Performed By: #### ALLBG ####[facility] LABCLIA [id number] [place] [address] [place] AMERICACalcium.ionized (Bld) [Mass/Vol]1.24 mmol/LNormal1.08-1.30[facility] on above:Order Comment: Specimen Type: ARTERIAL BLOOD SPECIMENOrdering Facility: [facility]Address: [address] [place], [place] [address]Performed By: #### ALLBG ####[facility] LABIA [id number] [place] [address] [place]ICACalcium.ionized adjusted to pH 7.4 (BldA) [Moles/Vol]1.21 mmol/LNormal 1.08-1.30[facility] on above:Order Comment: Specimen Type: ARTERIAL BLOOD SPECIMENOrdering Facility: [facility] Address: [address] [place], [place] [address]Performed By: #### ALLBG ####[facility] [id number] [address] STATES OF [facility] COUNTY HOSPITALCarboxyhemoglobin (BldA) [Mass fraction]1.7 %Normal0.0-2.0[facility] on above:Order Comment: Specimen Type: ARTERIAL BLOOD SPECIMENOrdering Facility: [facility]Address: [address] [place], [place] [address]Result Comment: Carboxyhemoglobin Reference Range for Smokers: 2.0-8.0%Performed By: #### ALLBG ####[facility] [id number] [place] [address] [place] AMERICACO2 (Bld) [Partial pressure]44 mm OmMoerku41-06HaaoqwbjnKettering [facility] on above:Order Comment: Specimen Type: ARTERIAL BLOOD SPECIMENOrdering Facility: [facility] Address: [address] [place], [place] [address]Performed By: #### ALLBG ####[facility] LABIA [id number] [place] [address] [place] AMERICAGlucose [Mass/Vol]128 mg/dLHigh 60-105[facility] on above:Order Comment: Specimen Type: ARTERIAL BLOOD SPECIMENOrdering Facility: [facility]Address: [address] [place], [place] [address]Performed By: #### ALLBG ####[facility] LABCLIA [id number] [place] [address] [place] AMERICAHCO3 (Bld) [Moles/Vol]24 mmol/MFpzmsh75-72 [facility] on above:Order Comment: Specimen Type: ARTERIAL BLOOD SPECIMENOrdering Facility: [facility]Address: [address] [place], [place] [address]Performed By: #### ALLBG ####[facility] LABCLIA [id number] [place] [address] [place] AMERICAHematocrit (Bld) [Volume fraction]26.6 %Low 39.0-51.0[facility] on above:Order Comment: Specimen Type: ARTERIAL BLOOD SPECIMENOrdering Facility: [facility] Address: [address] [place], [place] [address]Performed By: #### ALLBG ####[facility] LABIA [id number] [place] [address] [place] AMERICAHemoglobin (Bld) [Mass/Vol]8.6 g/dLLow13.0-17.0[facility] on above:Order Comment: Specimen Type: ARTERIAL BLOOD SPECIMENOrdering Facility: [facility]Address: [facility] [place], [place] [address]Performed By: #### ALLBG ####[facility] LABCLIA [id number] [place] [address] [place] AMERICALactate [Moles/Vol]2.7 mmol/LHigh 0.5-2.2CSt. [facility] on above:Order Comment: Specimen Type: ARTERIAL BLOOD SPECIMENOrdering Facility: [facility]Address: [facility] [place], [place] [address]Performed By: #### ALLBG ####[facility] LABIA [id number] [place] [address] [place] AMERICAMethemoglobin (Bld) [Mass fraction]0.8 %Normal 0.0-1.5CSt. [facility] on above:Order Comment: Specimen Type: ARTERIAL BLOOD SPECIMENOrdering Facility: [facility]Address: [address] [place] [id number] By: #### ALLBG ####[facility] LABCLIA [id number] [place] [address] [place] AMERICAOxygen (Bld) [Partial pressure]150 mm YmWeen89-81 [facility] Hospitalment on above:Order Comment: Specimen Type: ARTERIAL BLOOD SPECIMENOrdering Facility: [facility]Address: [address] [place], [place] [address]Performed By: #### ALLBG ####[facility] LABIA [id number] [place] [address] [place] AMERICAOxyhemoglobin (BldA) [Mass fraction]97 %Normal 95-98[facility] on above:Order Comment: Specimen Type: ARTERIAL BLOOD SPECIMENOrdering Facility: [facility]Address: [address] [place], [place] [address]Performed By: #### ALLBG ####[facility] LABCLIA [id number] [place] [address] [place] AMERICApH (Bld)7.36 [pH]Normal7.35-7.45[facility] on above:Order Comment: Specimen Type: ARTERIAL BLOOD SPECIMENOrdering Facility: [facility]Address: [address] [place] [id number] By: #### ALLBG ####[facility] LABIA [id number] [place] [address] [place] AMERICASodium [Moles/Vol]138 mmol/BRpqxad780-052QrnesiehvSelect Medical [facility]ty [facility] Comment on above:Order Comment: Specimen Type: ARTERIAL BLOOD SPECIMENOrdering Facility: [facility]Address: [address] [place], [place] [address]Performed By: #### ALLBG ####[facility] LABCLIA [id number] [place] [address] [place] Base deficit (BldA) [Moles/Vol]-2 mmol/TJzyhwj-8-3TkfnsnyiySelect [facility] Comment on above:Order Comment: Specimen Type: ARTERIAL BLOOD SPECIMENOrdering Facility: [facility]Address: [address] [place], [place] [address]Performed By: #### ALLBG ####[facility] LABIA [id number] [place] [address] [place] Body ytvglzxtyfo93.6 [degF]NormalSelect Medical Specialty Hospital - Cleveland-FairhillComment on above: Order Comment: Specimen Type: ARTERIAL BLOOD SPECIMENOrdering Facility: [facility]Address: [address] [place] [address] Performed By: #### ALLBG ####[facility] LABIA [id number] [place] [address] [place] AMERICAOrder Comment: Specimen Type: VENOUS BLOOD SPECIMENOrdering Facility: [facility] Address: [address] [place], [place] [address]Performed By: #### 36117-1 ####[facility] LABIA [id number] [place] [address] [place] AMERICACalcium.ionized (Bld) [Mass/Vol]1.20 mmol/LNormal1.08-1.30[facility]-FairhillComment on above: Order Comment: Specimen Type: ARTERIAL BLOOD SPECIMENOrdering Facility: [facility]Address: [address] [place] [id number] Performed By: #### ALLBG ####[facility] LABIA [id number] [place] [address] [place] Calcium.ionized adjusted to pH 7.4 (BldA) [Moles/Vol]1.17 mmol/LNormal1.08-1.30 [facility] on above:Order Comment: Specimen Type: ARTERIAL BLOOD SPECIMENOrdering Facility: [facility]Address: [address] [place] [id number] By: #### ALLBG ####[facility] LABIA [id number] [place] [address] [place] AMERICACarboxyhemoglobin (BldA) [Mass fraction]1.2 % Normal0.0-2.0[facility] Hospitalment on above:Order Comment: Specimen Type: ARTERIAL BLOOD SPECIMENOrdering Facility: [facility] Address: [address] [place], [place] [address]Result Comment: Carboxyhemoglobin Reference Range for Smokers: 2.0-8.0%Performed By: #### ALLBG ####[facility] LABIA [id number] [place] [address] [place] AMERICACO2 (Bld) [Partial pressure]42 mm HfTmhaya61-84 [facility]-FairhillComment on above:Order Comment: Specimen Type: ARTERIAL BLOOD SPECIMENOrdering Facility: [facility]Address: [address] [place], [place] [address]Performed By: #### ALLBG ####[facility] LABIA [id number] [place] [address] [place] AMERICAGlucose [Mass/Vol]177 mg/xXGxfy02-846EragusaouSelect Medical Specialty [facility] - Cleveland-FairhillComment on above:Order Comment: Specimen Type: ARTERIAL BLOOD SPECIMENOrdering Facility: [facility]Address: [address] [place], [place] [address]Performed By: #### ALLBG ####[facility] LABIA [id number] [place] [address] [place] AMERICAHCO3 (Bld) [Moles/Vol]23 mmol/LOorlke60-82PzmkmnryqSelect Medical Specialty [facility] Comment on above:Order Comment: Specimen Type: ARTERIAL BLOOD SPECIMENOrdering Facility: [facility]Address: [address] [place] [id number] By: #### ALLBG ####[facility] LABCLIA [id number] [address] [address] [place] Hematocrit (Bld) [Volume fraction]27.2 %Low39.0-51.0[facility] Comment on above:Order Comment: Specimen Type: ARTERIAL BLOOD SPECIMENOrdering Facility: [facility]Address: [address] [place] [id number] By: #### ALLBG ####[facility] LABCLIA [id number] [place] [id number] [place] Hemoglobin (Bld) [Mass/Vol]8.8 g/dLLow13.0-17.0[facility]-FairhillComment on above:Order Comment: Specimen Type: ARTERIAL BLOOD SPECIMENOrdering Facility: [facility]Address: [address] [place] [id number] By: #### ALLBG ####[facility] LABCLIA [id number] [place] [address] [place] Lactate [Moles/Vol]4.0 mmol/LHigh0.5-2.2CSumma Health Akron CampusComment on above:Order Comment: Specimen Type: ARTERIAL BLOOD SPECIMENOrdering Facility: [facility]Address: [address] [place] [address] Performed By: #### ALLBG ####[facility] LABCLIA [id number] [place] [id number] [place] AMERICALITERS2 Liters/minNormalClevelAtrium HealthComselect specialty hospital-[facility] on above:Order Comment: Specimen Type: ARTERIAL BLOOD SPECIMENOrdering Facility: [facility]Address: [address] [place] [id number] By: #### ALLBG ####[facility] LABCLIA [id number] [address] [address] [place] AMERICAOrder Comment: Specimen Type: VENOUS BLOOD SPECIMENOrdering Facility: [facility] Address: [address] [place], [place] [address]Performed By: #### 91222-9 ####[facility] LABCLIA [id number] [place] [id number] [place] AMERICAMethemoglobin (Bld) [Mass fraction]0.4 %Normal 0.0-1.5CSumma Health Akron CampusComment on above:Order Comment: Specimen Type: ARTERIAL BLOOD SPECIMENOrdering Facility: [facility]Address: [address] [facility] [place] [id number] By: #### ALLBG ####[facility] LABCLIA [id number] [place] [id number] [place] AMERICAO2 THERAPYNC = Nasal CannulaNormalClevelAtrium HealthComment on above:Order Comment: Specimen Type: ARTERIAL BLOOD SPECIMENOrdering Facility: [facility]Address: [address] [place] [id number] By: #### ALLBG ####[facility] LABCLIA [id number] [address] [address] [place] AMERICAOrder Comment: Specimen Type: VENOUS BLOOD SPECIMENOrdering Facility: [facility] Address: [address] [place] [phone] Performed By: #### 87124-3 ####[facility] LABCLIA [id number] [place] [id number] [place] Oxygen (Bld) [Partial pressure]143 mm EhXabw66-42SrlgmdiltSelect Medical Specialty [facility] Comment on above:Order Comment: Specimen Type: ARTERIAL BLOOD SPECIMENOrdering Facility: [facility]Address: [address] [place] [place], [place] [address]Kyzzgotzd By: #### ALLBG ####[facility] LABCLIA [id number] [address] [address] [place] Oxyhemoglobin (BldA) [Mass fraction]98 %Fvfjqr26-03XennreqlkSelect Medical Specialty [facility] Comment on above:Order Comment: Specimen Type: ARTERIAL BLOOD SPECIMENOrdering Facility: [facility]Address: [address] [place], [place] [address]Performed By: #### ALLBG ####[facility] LABCLIA [id number] [place] [address] [place] pH (Bld)7.35 [pH]Normal7.35-7.45[facility] on above:Order Comment: Specimen Type: ARTERIAL BLOOD SPECIMENOrdering Facility: [facility]ITALAddress: [address] [place], [place] [address]Performed By: #### ALLBG ####[facility] LABCLIA [id number] [place] [address] [place] OF AMERICAPotassium [Moles/Vol]4.8 mmol/L Normal3.5-5.0[facility] on above:Order Comment: Specimen Type: ARTERIAL BLOOD SPECIMENOrdering Facility: [facility] Address: [address] [place], [place] [address]Performed By: #### ALLBG ####[facility] LABCLIA [id number] [place] [address] [place] AMERICASodium [Moles/Vol]138 mmol/LNormal 136-144[facility] on above:Order Comment: Specimen Type: ARTERIAL BLOOD SPECIMENOrdering Facility: [facility]Address: [address] [place], [place] [address]Performed By: #### ALLBG ####[facility] LABCLIA [id number] [place] [id number] [place] OF AMERICAOrder Comment: Specimen Type: VENOUS BLOOD SPECIMENOrdering Facility: [facility] Address: [address] [place], [place] [address]Performed By: #### 42161-4 ####[facility] LABCLIA [id number] [place] [id number] [place] AMERICABase deficit (BldA) [Moles/Vol]-2 mmol/IBjbveh-5-3GimtshtyjKettering Health Behavioral Medical Center on above:Order Comment: Specimen Type: ARTERIAL BLOOD SPECIMENOrdering Facility: [facility]Address: [address] [place], [place] [address]Performed By: #### ALLBG ####[facility] LABCLIA [id number] [place] [id number] [place] AMERICABody upjeuujteji50.6 [degF]NormalKettering Health Behavioral Medical [facility] on above:Order Comment: Specimen Type: ARTERIAL BLOOD SPECIMENOrdering Facility: [facility]Address: [address] [place] [id number] Performed By: #### ALLBG ####[facility] LABCLIA [id number] [place] [address] [place] AMERICAOrder Comment: Specimen Type: VENOUS BLOOD SPECIMENOrdering Facility: [facility] Address: [address] [place], [place] [address]Performed By: #### 48351-9 ####[facility] LABCLIA [id number] [place] [address] [place] AMERICACalcium.ionized (Bld) [Mass/Vol]1.20 mmol/LNormal1.08-1.30[facility] on above: Order Comment: Specimen Type: ARTERIAL BLOOD SPECIMENOrdering Facility: [facility]Address: [address] [place] [id number] Performed By: #### ALLBG ####[facility] LABCLIA [id number] [place] [id number] [place] Calcium.ionized adjusted to pH 7.4 (BldA) [Moles/Vol]1.17 mmol/LNormal1.08-1.30 [facility] on above:Order Comment: Specimen Type: ARTERIAL BLOOD SPECIMENOrdering Facility: [facility]Address: [address] [place] [id number] By: #### ALLBG ####[facility] LABCLIA [id number] [address] [address] [place] STATES OF AMERICACarboxyhemoglobin (BldA) [Mass fraction]1.1 % Normal0.0-2.0[facility] on above:Order Comment: Specimen Type: ARTERIAL BLOOD SPECIMENOrdering Facility: [facility] Address: [address] [place], [place] [address]Result Comment: Carboxyhemoglobin Reference Range for Smokers: 2.0-8.0%Performed By: #### ALLBG ####[facility] LABCLIA [id number] [place] [address] [place] AMERICACO2 (Bld) [Partial pressure]43 mm AfFmdqte60-16 [facility] on above:Order Comment: Specimen Type: ARTERIAL BLOOD SPECIMENOrdering Facility: [facility]Address: [address] [place], [place] [address]Performed By: #### ALLBG ####[facility] LABCLIA [id number] [address] STATES OF TTHTVPSDEV363 %NormalKettering Health Behavioral Medical Center on above:Order Comment: Specimen Type: ARTERIAL BLOOD SPECIMENOrdering Facility: [facility]Address: [address] [place] [id number] Performed By: #### ALLBG ####[facility] LABCLIA [id number] [place] [address] [place] AMERICAOrder Comment: Specimen Type: VENOUS BLOOD SPECIMENOrdering Facility: [facility] Address: [address] [place], [place] [address]Performed By: #### 44180-5 ####[facility] LABCLIA [id number] [place] [address] [place] AMERICAGlucose [Mass/Vol]173 mg/bIQswq04-657IathsddsfKettering Health Behavioral Medical Center on above:Order Comment: Specimen Type: ARTERIAL BLOOD SPECIMENOrdering Facility: [facility]Address: [address] [place], [place] [address]Performed By: #### ALLBG ####[facility] LABCLIA [id number] [facility]D [facility]ERK L [address] [place] [address] [place] AMERICAHCO3 (Bld) [Moles/Vol]23 mmol/L Arsdzw49-33GpceemxzmKettering Health Behavioral Medical Center on above:Order Comment: Specimen Type: ARTERIAL BLOOD SPECIMENOrdering Facility: [facility] Address: [address] [place], [place] [address]Performed By: #### ALLBG ####[facility] LABCLIA [id number] [facility]ERK L [address] [place] [address] [place] AMERICAHematocrit (Bld) [Volume fraction] 27.5 %Low39.0-51.0[facility] on above:Order Comment: Specimen Type: ARTERIAL BLOOD SPECIMENOrdering Facility: [facility]Address: [address] [place], [place] [address]Performed By: #### ALLBG ####[facility] LABIA [id number] [facility] L [address] [place] [address] [place] AMERICAHemoglobin (Bld) [Mass/Vol]8.9 g/dLLow13.0-17.0[facility] on above:Order Comment: Specimen Type: ARTERIAL BLOOD SPECIMENOrdering Facility: [facility]Address: [address] [place], [place] [address]Performed By: #### ALLBG ####[facility] LABCLIA [id number] [facility] L [address] [place] [address] [place] AMERICALactate [Moles/Vol]4.9 mmol/LHigh 0.5-2.2CSt. [facility] on above:Order Comment: Specimen Type: ARTERIAL BLOOD SPECIMENOrdering Facility: [facility]Address: [facility] [place], [place] [address]Performed By: #### ALLBG ####[facility] LABCLIA [id number] [place] [address] [place] AMERICAMethemoglobin (Bld) [Mass fraction]1.0 %Normal 0.0-1.5CSumma Health Akron CampusComselect specialty hospital-flint on above:Order Comment: Specimen Type: ARTERIAL BLOOD SPECIMENOrdering Facility: [facility]Address: [address] [place] [id number] By: #### ALLBG ####[facility] LABCLIA [id number] [place] [id number] [place] AMERICAO2 THERAPYPositiveNormalCSumma Health Akron Campus Comment on above:Order Comment: Specimen Type: ARTERIAL BLOOD SPECIMENOrdering Facility: [facility]Address: [address] [place], [place] [address]Performed By: #### ALLBG ####[facility] LABCLIA [id number] [place] [id number] [place] Order Comment: Specimen Type: VENOUS BLOOD SPECIMENOrdering Facility: [facility] Address: [address] [place], [place] [address]Performed By: #### 85199-2 ####[facility] LABCLIA [id number] [place] [id number] [place] AMERICAOxygen (Bld) [Partial pressure]129 mm VwVido18-30HgmssgphcSelect Medical Specialty Hospital - Cleveland-FairhillComselect specialty hospital-[facility] on above:Order Comment: Specimen Type: ARTERIAL BLOOD SPECIMENOrdering Facility: [facility]Address: [address] [place] [phone] By: #### ALLBG ####[facility] LABCLIA [id number] [place] [id number] [place] AMERICAOxyhemoglobin (BldA) [Mass fraction]97 %Urxhxa07-42WbeczudgxK[facility] Health [facility]al [facility] on above:Order Comment: Specimen Type: ARTERIAL BLOOD SPECIMENOrdering Facility: [facility]Address: [address] [facility] [facility] HOS[facility]ITALTg [place] [phone] By: #### ALLBG ####[facility] LABCLIA [id number] [place] [id number] [place] AMERICApH (Bld)7.35 [pH]Normal7.35-7.45 [facility] on above:Order Comment: Specimen Type: ARTERIAL BLOOD SPECIMENOrdering Facility: [facility]Address: [address] [place] [phone] By: #### ALLBG ####[facility] LABCLIA [id number] [address] [facility] HOSPITALD AVENUESALINAS VALLEY [place] [address] [place] AMERICAPO2 / FIO2 ZIGJL568 mmHgNormal>300[facility] on above:Order Comment: Specimen Type: ARTERIAL BLOOD SPECIMENOrdering Facility: [facility]Address: [address] [place], [place] [address]Performed By: #### ALLBG ####[facility] LABCLIA [id number] [facility] [address] [place] AMERICAPotassium [Moles/Vol]4.8 mmol/LNormal3.5-5.0[facility] Comment on above:Order Comment: Specimen Type: ARTERIAL BLOOD SPECIMENOrdering Facility: [facility]Address: [address] [place], [place] [address]Performed By: #### ALLBG ####[facility] LABCLIA [id number] [facility]D [facility]ERK [place] [id number] [place] Order Comment: Specimen Type: VENOUS BLOOD SPECIMENOrdering Facility: [facility] Address: [address] [place], [place] [address]Performed By: #### 17020-3 ####[facility] LABCLIA [id number] [facility]D [facility] [place] [address] [place] AMERICASodium [Moles/Vol]140 mmol/ACqfzuy446-460JqpgqtjayK[facility] on above:Order Comment: Specimen Type: ARTERIAL BLOOD SPECIMENOrdering Facility: [facility]Address: [address] [place], [place] [address]Performed By: #### ALLBG ####[facility] LABCLIA [id number] [place] [address] [place] AMERICABase deficit (BldA) [Moles/Vol]-3 mmol/ABwb-3-2WykagovysSelect Medical Specialty Hospital - Cleveland-FairhillComment on above:Order Comment: Specimen Type: ARTERIAL BLOOD SPECIMENOrdering Facility: [facility] Address: [address] [place], [place] [address]Performed By: #### ALLBG ####[facility] LABIA [id number] [address] STATES OF AMERICACalcium.ionized (Bld) [Mass/Vol] 1.21 mmol/LNormal1.08-1.30[facility] on above:Order Comment: Specimen Type: ARTERIAL BLOOD SPECIMENOrdering Facility: [facility]Address: [address] [place], [place] [address]Performed By: #### ALLBG ####[facility] LABIA [id number] [address]Calcium.ionized adjusted to pH 7.4 (BldA) [Moles/Vol]1.20 mmol/LNormal1.08-1.30[facility] Comment on above:Order Comment: Specimen Type: ARTERIAL BLOOD SPECIMENOrdering Facility: [facility]Address: [address] [place], [place] [address]Performed By: #### ALLBG ####[facility] LABIA [id number] [place] [address] [place] Carboxyhemoglobin (BldA) [Mass fraction]1.8 %Normal0.0-2.0[facility] on above:Order Comment: Specimen Type: ARTERIAL BLOOD SPECIMENOrdering Facility: [facility]Address: [facility]0 [place], [place] [address]Result Comment: Carboxyhemoglobin Reference Range for Smokers: 2.0-8.0%Performed By: #### ALLBG ####[facility] LABIA [id number] [address] [place] [address] [place] AMERICACO2 (Bld) [Partial pressure]36 mm TkMmnvco64-43SvuatcxncSelect Medical Specialty Hospital [facility] Comment on above:Order Comment: Specimen Type: ARTERIAL BLOOD SPECIMENOrdering Facility: [facility]Address: [address] [place], [place] [address]Wnskvbbai By: #### ALLBG ####[facility] LABCLIA [id number] [address] [address] [place] Glucose [Mass/Vol]163 mg/kTZmzv59-479OolawpdpfKettering Health Behavioral Medical Center on above: Order Comment: Specimen Type: ARTERIAL BLOOD SPECIMENOrdering Facility: [facility]Address: [address] [place] [id number] Performed By: #### ALLBG ####[facility] LABCLIA [id number] [place] [address] [place] AMERICAHCO3 (Bld) [Moles/Vol]21 mmol/WWgk68-61BoicagvloSelect Medical Specialty Hospital - Cleveland-FairhillComment on above:Order Comment: Specimen Type: ARTERIAL BLOOD SPECIMENOrdering Facility: [facility]Address: [address] [place], [place] [address]Performed By: #### ALLBG ####[facility] LABCLIA [id number] [place] [address] [place] AMERICAHematocrit (Bld) [Volume fraction]30.4 %Low39.0-51.0[facility] on above:Order Comment: Specimen Type: ARTERIAL BLOOD SPECIMENOrdering Facility: [facility]Address: [address] [place] [id number] By: #### ALLBG ####[facility] LABCLIA [id number] [place] [id number] [place] AMERICALactate [Moles/Vol]4.8 mmol/LHigh 0.5-2.2CSt. [facility] Hospital on above:Order Comment: Specimen Type: ARTERIAL BLOOD SPECIMENOrdering Facility: [facility]Address: [address] [place], [place] [address]Performed By: #### ALLBG ####[facility] LABIA [id number] [place] [address] [place] AMERICAMethemoglobin (Bld) [Mass fraction]0.9 %Normal 0.0-1.5CSt. [facility] Hospital on above:Order Comment: Specimen Type: ARTERIAL BLOOD SPECIMENOrdering Facility: [facility]Address: [address] [place], [place] [address]Performed By: #### ALLBG ####[facility] LABIA [id number] [place] [address] [place] AMERICAOxygen (Bld) [Partial pressure]173 mm IpYlye44-77 [facility] on above:Order Comment: Specimen Type: ARTERIAL BLOOD SPECIMENOrdering Facility: [facility]Address: [address] [place], [place] [address]Performed By: #### ALLBG ####[facility] LABIA [id number] [place] [address] [place] AMERICAOxyhemoglobin (BldA) [Mass fraction]97 %Normal 95-98[facility] on above:Order Comment: Specimen Type: ARTERIAL BLOOD SPECIMENOrdering Facility: [facility]Address: [address] [place] [id number] By: #### ALLBG ####[facility] LABIA [id number] [place] [id number] [place] AMERICApH (Bld)7.39 [pH]Normal7.35-7.45[facility] on above:Order Comment: Specimen Type: ARTERIAL BLOOD SPECIMENOrdering Facility: [facility]Address: [address] [place], [place] [address]Performed By: #### ALLBG ####[facility] LABIA [id number] [place] [id number] [place] AMERICAPotassium [Moles/Vol]4.8 mmol/LNormal3.5-5.0[facility] Comment on above:Order Comment: Specimen Type: ARTERIAL BLOOD SPECIMENOrdering Facility: [facility]Address: [address] [place] [phone] By: #### ALLBG ####[facility] LABCLIA [id number] [place] [address] [place] Sodium [Moles/Vol]138 mmol/LSoxpte947-474CqshglrosK[facility] Health [facility]al [facility] Center on above:Order Comment: Specimen Type: ARTERIAL BLOOD SPECIMENOrdering Facility: [facility]Address: [address] [place] [phone] Performed By: #### ALLBG ####[facility] LABCLIA [id number] [place] [address] [place] AMERICABase deficit (BldA) [Moles/Vol]-2 mmol/PPqgzvf-6-9NffrqqngfKettering Health Behavioral Medical Center on above: Order Comment: Specimen Type: ARTERIAL BLOOD SPECIMENOrdering Facility: [facility]Address: [address] [place] [phone] Performed By: #### ALLBG ####[facility] LABCLIA [id number] [place] [address] [place] AMERICABody wifufmxrsze38.6 [degF]NormalK[facility] on above:Order Comment: Specimen Type: ARTERIAL BLOOD SPECIMENOrdering Facility: [facility]Address: [address] [place] [id number] By: #### ALLBG ####[facility] LABCLIA [id number] [place] [address] [place] AMERICACalcium.ionized (Bld) [Mass/Vol] 1.22 mmol/LNormal1.08-1.30[facility] on above:Order Comment: Specimen Type: ARTERIAL BLOOD SPECIMENOrdering Facility: [facility]Address: [address] [place] [id number] By: #### ALLBG ####[facility] LABCLIA [id number] [place] [address] [place] AMERICACalcium.ionized adjusted to pH 7.4 (BldA) [Moles/Vol]1.21 mmol/LNormal1.08-1.30[facility] Comment on above:Order Comment: Specimen Type: ARTERIAL BLOOD SPECIMENOrdering Facility: [facility]Address: [address] [place], [place] [address]Performed By: #### ALLBG ####[facility] LABCLIA [id number] [place] [address] [place] Carboxyhemoglobin (BldA) [Mass fraction]1.8 %Normal0.0-2.0[facility]-FairhillComment on above:Order Comment: Specimen Type: ARTERIAL BLOOD SPECIMENOrdering Facility: [facility]Address: [address] [place], [place] [address]Result Comment: Carboxyhemoglobin Reference Range for Smokers: 2.0-8.0%Performed By: #### ALLBG ####[facility] LABCLIA [id number] [place] [address] [place] AMERICACO2 (Bld) [Partial pressure]38 mm EiHnwkpd61-31IrosrqnusSelect Medical Specialty Hospital [facility] Comment on above:Order Comment: Specimen Type: ARTERIAL BLOOD SPECIMENOrdering Facility: [facility]Address: [address] [place], [place] [address]Performed By: #### ALLBG ####[facility] LABCLIA [id number] [place] [address] [place] FEU369 %NormalSelect Medical Specialty Hospital - Cleveland-FairhillComment on above:Order Comment: Specimen Type: ARTERIAL BLOOD SPECIMENOrdering Facility: [facility] Address: [address] [place], [place] [address]Performed By: #### ALLBG ####[facility] LABCLIA [id number] [address], [place] [address] [place] AMERICAGlucose [Mass/Vol]132 mg/dLHigh 60-105[facility] on above:Order Comment: Specimen Type: ARTERIAL BLOOD SPECIMENOrdering Facility: [facility]Address: [address] [place] [id number] By: #### ALLBG ####[facility] LABCLIA [id number] [place] [address] [place] AMERICAHCO3 (Bld) [Moles/Vol]22 mmol/DOcyaln81-86 [facility] on above:Order Comment: Specimen Type: ARTERIAL BLOOD SPECIMENOrdering Facility: [facility]Address: [address] [place] [id number] By: #### ALLBG ####[facility] LABCLIA [id number] [place] [address] [place] AMERICAHematocrit (Bld) [Volume fraction]30.2 %Low 39.0-51.0[facility] on above:Order Comment: Specimen Type: ARTERIAL BLOOD SPECIMENOrdering Facility: [facility] Address: [address] [place], [place] [address]Performed By: #### ALLBG ####[facility] LABCLIA [id number] [place] [address] [place] AMERICAHemoglobin (Bld) [Mass/Vol]9.8 g/dLLow13.0-17.0[facility] on above:Order Comment: Specimen Type: ARTERIAL BLOOD SPECIMENOrdering Facility: [facility]Address: [address] [place] [phone] By: #### ALLBG ####[facility] LABCLIA [id number] [place] [address] [place] AMERICALactate [Moles/Vol]5.3 mmol/LHigh 0.5-2.2CSt. [facility] on above:Order Comment: Specimen Type: ARTERIAL BLOOD SPECIMENOrdering Facility: [facility]Address: [address]D [place], [place] [address]Htxjnhglk By: #### ALLBG ####[facility] LABCLIA [id number] [address] [address] [place] AMERICAMethemoglobin (Bld) [Mass fraction]0.7 %Normal 0.0-1.5CSt. [facility] Hospital on above:Order Comment: Specimen Type: ARTERIAL BLOOD SPECIMENOrdering Facility: [facility]Address: [address] [place] [phone] By: #### ALLBG ####[facility] LABCLIA [id number] [place] [id number] [place] AMERICAO2 THERAPYVENT=VentilatorNoWright-Patterson Medical Center on above:Order Comment: Specimen Type: ARTERIAL BLOOD SPECIMENOrdering Facility: [facility]Address: [address] [place], [place] [address]Sictuqsdc By: #### ALLBG ####[facility] LABCLIA [id number] [address] [address] [place] AMERICAOxygen (Bld) [Partial pressure]148 mm ZuUryx01-26BgfhnqwqyKettering Health Behavioral Medical Center on above:Order Comment: Specimen Type: ARTERIAL BLOOD SPECIMENOrdering Facility: [facility]Address: [address] [place], [place] [address]Pvmyiepsj By: #### ALLBG ####[facility] LABCLIA [id number] [place] [id number] [place] AMERICAOxyhemoglobin (BldA) [Mass fraction]97 %Dxifkc76-98VesilavruKettering Health Behavioral Medical Center on above:Order Comment: Specimen Type: ARTERIAL BLOOD SPECIMENOrdering Facility: [facility]Address: [address] [place] [phone] By: #### ALLBG ####[facility] LABCLIA [id number] [address] [address] [place] AMERICAPEEP/CPAP8 rlL9FMvpndwKwvnzgfxdSt. Vincent Hospital on above:Order Comment: Specimen Type: ARTERIAL BLOOD SPECIMENOrdering Facility: [facility]Address: [address] [place], [place] [address]Llpmutulu By: #### ALLBG ####[facility] LABCLIA [id number] [address] [address] [place] AMERICApH (Bld)7.38 [pH]Normal7.35-7.45 [facility]-FairhillComment on above:Order Comment: Specimen Type: ARTERIAL BLOOD SPECIMENOrdering Facility: [facility]Address: [address] [facility] [place] [id number] By: #### ALLBG ####[facility] LABCLIA [id number] [place] [address] [place] AMERICAPO2 / FIO2 MEGIV855 mmHgNormal>300[facility] on above:Order Comment: Specimen Type: ARTERIAL BLOOD SPECIMENOrdering Facility: [facility]Address: [address] [place], [place] [address]Zkkiosznn By: #### ALLBG ####[facility] LABCLIA [id number] [place] [address] [place] AMERICAPotassium [Moles/Vol]4.7 mmol/LNormal3.5-5.0[facility] Comment on above:Order Comment: Specimen Type: ARTERIAL BLOOD SPECIMENOrdering Facility: [facility]Address: [address] [place], [place] [address]Iathjojdf By: #### ALLBG ####[facility] LABCLIA [id number] [address] [address] [place] Sodium [Moles/Vol]139 mmol/VOvmhww330-703DmrdatqnzKettering Health Behavioral [facility] Center on above:Order Comment: Specimen Type: ARTERIAL BLOOD SPECIMENOrdering Facility: [facility]Address: [address] [place] [address] Performed By: #### ALLBG ####[facility] LABCLIA [id number] [place] [address] [place] AMERICABase deficit (BldA) [Moles/Vol]-3 mmol/RYsh-6-4VbnnutaxeKettering Health Behavioral Medical Center on above: Order Comment: Specimen Type: ARTERIAL BLOOD SPECIMENOrdering Facility: [facility]Address: [address] [place] [id number] Performed By: #### ALLBG ####[facility] LABCLIA [id number] [place] [address] [place] AMERICABody uaxnlkmdzre98.6 [degF]NormalKettering Health Behavioral Medical Center on above:Order Comment: Specimen Type: ARTERIAL BLOOD SPECIMENOrdering Facility: [facility]ITALAddress: [address], [place] [address]Performed By: #### ALLBG ####[facility] LABCLIA [id number] [address] OF AMERICAOrder Comment: Specimen Type: VENOUS BLOOD SPECIMENOrdering Facility: [facility] HOSPITAL Address: [address] [place], [place] [address]Performed By: #### 16532-9 ####[facility] LABCLIA [id number] [address] STATES OF AMERICACalcium.ionized (Bld) [Mass/Vol]1.23 mmol/LNormal 1.08-1.30[facility] on above:Order Comment: Specimen Type: ARTERIAL BLOOD SPECIMENOrdering Facility: [facility] Address: [address] [place], [place] [address]Performed By: #### ALLBG ####[facility] LABCLIA [id number] [address] STATES OF AMERICAOrder Comment: Specimen Type: VENOUS BLOOD SPECIMENOrdering Facility: [facility] Address: [address] [place], [place] [address]Performed By: #### 28536-3 ####[facility] LABCLIA [id number] [place] [address] [place] AMERICACalcium.ionized adjusted to pH 7.4 (BldA) [Moles/Vol]1.21 mmol/LNormal1.08-1.30[facility] on above: Order Comment: Specimen Type: ARTERIAL BLOOD SPECIMENOrdering Facility: [facility]Address: [address] [place] [id number] Performed By: #### ALLBG ####[facility] LABCLIA [id number] [place] [address] [place] Carboxyhemoglobin (BldA) [Mass fraction]1.5 %Normal0.0-2.0[facility] on above:Order Comment: Specimen Type: ARTERIAL BLOOD SPECIMENOrdering Facility: [facility]Address: [address] [place], [place] [address]Result Comment: Carboxyhemoglobin Reference Range for Smokers: 2.0-8.0%Performed By: #### ALLBG ####[facility] LABCLIA [id number] [place] [address] [place] AMERICACO2 (Bld) [Partial pressure]37 mm XgYxrspl83-37XwxyithsiSelect Medical Specialty Hospital [facility] Comment on above:Order Comment: Specimen Type: ARTERIAL BLOOD SPECIMENOrdering Facility: [facility]Address: [address] [place], [place] [address]Performed By: #### ALLBG ####[facility] LABCLIA [id number] [place] [address] [place] RUY784 %NormalKettering Health Behavioral Medical Center on above:Order Comment: Specimen Type: ARTERIAL BLOOD SPECIMENOrdering Facility: [facility] Address: [address] [place], [place] [address]Performed By: #### ALLBG ####[facility] LABCLIA [id number] [place] [address] [place] OF AMERICAOrder Comment: Specimen Type: VENOUS BLOOD SPECIMENOrdering Facility: [facility] Address: [address] [place], [place] [address]Performed By: #### 43293-8 ####[facility] LABIA [id number] [place] [address] [place] AMERICAGlucose [Mass/Vol]113 mg/mAYwsu67-611NgkhstinnSelect Medical Specialty Hospital - Cleveland-FairhillComment on above:Order Comment: Specimen Type: ARTERIAL BLOOD SPECIMENOrdering Facility: [facility]Address: [address] [place], [place] [address]Performed By: #### ALLBG ####[facility] LABIA [id number] [place] [address] [place] AMERICAHCO3 (Bld) [Moles/Vol]21 mmol/QFvh84-41DezdchgqiSelect Medical Specialty Hospital - Cleveland-FairhillComselect specialty hospital-flint on above:Order Comment: Specimen Type: ARTERIAL BLOOD SPECIMENOrdering Facility: [facility]Address: [address] [facility] [place], [place] [address]Performed By: #### ALLBG ####[facility] LABIA [id number] [place] [address] [place] Hematocrit (Bld) [Volume fraction]30.2 %Low39.0-51.0[facility] Comment on above:Order Comment: Specimen Type: ARTERIAL BLOOD SPECIMENOrdering Facility: [facility]Address: [address] [place] [id number] By: #### ALLBG ####[facility] LABIA [id number] [place] [address] [place] Hemoglobin (Bld) [Mass/Vol]9.8 g/dLLow13.0-17.0[facility]-FairhillComselect specialty hospital-[facility] on above:Order Comment: Specimen Type: ARTERIAL BLOOD SPECIMENOrdering Facility: [facility]Address: [address] [place], [place] [address]Performed By: #### ALLBG ####[facility] LABIA [id number] [address] [address] [place] Lactate [Moles/Vol]5.8 mmol/LHigh0.5-2.2CSt. [facility] on above:Order Comment: Specimen Type: ARTERIAL BLOOD SPECIMENOrdering Facility: [facility]Address: [address] [place] [address] Performed By: #### ALLBG ####[facility] LABCLIA [id number] [address] [facility] [address] STATES OF AMERICAMethemoglobin (Bld) [Mass fraction]0.6 %Normal0.0-1.5CSt. [facility] Hospital on above:Order Comment: Specimen Type: ARTERIAL BLOOD SPECIMENOrdering Facility: [facility]Address: [address] [place] [id number] Performed By: #### ALLBG ####[facility] LABCLIA [id number] [place] [address] [place] [facility] COUNTY HOSPITALO2 THERAPY VENT=VentilatorNormalCSt. Vincent Hospital on above:Order Comment: Specimen Type: ARTERIAL BLOOD SPECIMENOrdering Facility: [facility]ITALAddress: [address] [place], [place] [address]Performed By: #### ALLBG ####[facility] LABCLIA [id number] [address] [place] [address] [place] OF AMERICAOrder Comment: Specimen Type: VENOUS BLOOD SPECIMENOrdering Facility: [facility] Address: [address] [place], [place] [address]Performed By: #### 06113-6 ####[facility] LABCLIA [id number] [facility] [place] [address] [place] AMERICAOxygen (Bld) [Partial pressure]136 mm OdZpmp47-09 [facility] on above:Order Comment: Specimen Type: ARTERIAL BLOOD SPECIMENOrdering Facility: [facility]Address: [address] [place], [place] [address]Performed By: #### ALLBG ####[facility] LABCLIA [id number] [place] [id number] [place] OF AMERICAOxyhemoglobin (BldA) [Mass fraction]97 %Normal 95-98[facility] on above:Order Comment: Specimen Type: ARTERIAL BLOOD SPECIMENOrdering Facility: [facility]Address: [address] [place] [id number] By: #### ALLBG ####[facility] LABCLIA [id number] [place] [id number] [place] OF AMERICAPEEP/CPAP8 obW1SHqsrvmQbzgzoemfSumma Health [facility] Campus Comment on above:Order Comment: Specimen Type: ARTERIAL BLOOD SPECIMENOrdering Facility: [facility]Address: [address] [place], [place] [address]Performed By: #### ALLBG ####[facility] LABCLIA [id number] [place] [address] [place] Order Comment: Specimen Type: VENOUS BLOOD SPECIMENOrdering Facility: [facility] Address: [address] [place], [place] [address]Performed By: #### 91123-1 ####[facility] LABCLIA [id number] [place] [address] [place] AMERICApH (Bld)7.37 [pH] Normal7.35-7.45[facility]-FairhillComselect specialty hospital-[facility]int on above:Order Comment: Specimen Type: ARTERIAL BLOOD SPECIMENOrdering Facility: [facility]ITALAddress: [address] [place], [place] [address]Performed By: #### ALLBG ####[facility] LABCLIA [id number] [address] [facility]D [place] [id number] [place] OF AMERICAPO2 / FIO2 WFSYZ204 mmHgNormal>300 [facility]-FairhillComselect specialty hospital-[facility] on above:Order Comment: Specimen Type: ARTERIAL BLOOD SPECIMENOrdering Facility: [facility]Address: [address] [place], [place] [address]Performed By: #### ALLBG ####[facility] LABCLIA [id number] [place] [address] [place] AMERICAPotassium [Moles/Vol]4.4 mmol/LNormal3.5-5.0 [facility] on above:Order Comment: Specimen Type: ARTERIAL BLOOD SPECIMENOrdering Facility: [facility]Address: [address] [place], [place] [address]Performed By: #### ALLBG ####[facility] LABCLIA [id number] [address] STATES OF HENRY COUNTY HOSPITALSodium [Moles/Vol]140 mmol/ASazeik923-909SbodfovarKettering Health Behavioral Medical Center on above:Order Comment: Specimen Type: ARTERIAL BLOOD SPECIMENOrdering Facility: [facility]Address: [address] [place], [place] [address]Performed By: #### ALLBG ####[facility] LABIA [id number] [place] [address] [place] AMERICAOrder Comment: Specimen Type: VENOUS BLOOD SPECIMENOrdering Facility: [facility] Address: [address] [place] [address] Performed By: #### 21446-7 ####[facility] LABIA [id number] [place] [address] [place] Base deficit (BldA) [Moles/Vol]-5 mmol/DAor-4-9PipiddvreKettering Health Behavioral Medical Center on above:Order Comment: Specimen Type: ARTERIAL BLOOD SPECIMENOrdering Facility: [facility]Address: [address] [place], [place] [address]Performed By: #### ALLBG ####[facility] LABIA [id number] [place] [address] [place] Calcium.ionized (Bld) [Mass/Vol]1.23 mmol/LNormal1.08-1.30[facility] on above:Order Comment: Specimen Type: ARTERIAL BLOOD SPECIMENOrdering Facility: [facility]Address: [address] [place], [place] [address]Performed By: #### ALLBG ####[facility] LABCLIA [id number] [facility] W30[place] [address] [place] AMERICACalcium.ionized adjusted to pH 7.4 (BldA) [Moles/Vol]1.18 mmol/LNormal 1.08-1.30[facility] on above:Order Comment: Specimen Type: ARTERIAL BLOOD SPECIMENOrdering Facility: [facility] Address: [address] [place], [place] [address]Performed By: #### ALLBG ####[facility] LABIA [id number] [facility] L [address] [place] [address] STATES OF AMERICACarboxyhemoglobin (BldA) [Mass fraction]1.4 %Normal0.0-2.0[facility] on above:Order Comment: Specimen Type: ARTERIAL BLOOD SPECIMENOrdering Facility: [facility]Address: [address] [place], [place] [address]Result Comment: Carboxyhemoglobin Reference Range for Smokers: 2.0-8.0%Performed By: #### ALLBG ####[facility] LABIA [id number] [place] [address] [place] AMERICACO2 (Bld) [Partial pressure]41 mm JySszyvz91-08MhsxnovogKettering Health Behavioral Medical Center on above:Order Comment: Specimen Type: ARTERIAL BLOOD SPECIMENOrdering Facility: [facility] Address: [address] [place], [place] [address]Performed By: #### ALLBG ####[facility] LABIA [id number] [facility] L [address] [place] [address] [place] AMERICAGlucose [Mass/Vol]130 mg/dLHigh 60-105[facility] on above:Order Comment: Specimen Type: ARTERIAL BLOOD SPECIMENOrdering Facility: [facility]Address: [address] [place], [place] [address]Performed By: #### ALLBG ####[facility] LABIA [id number] [place] [address] [place] AMERICAHCO3 (Bld) [Moles/Vol]20 mmol/OZlc26-78AuebcujdkSelect Medical Specialty Hospital - Cleveland-FairhillComment on above:Order Comment: Specimen Type: ARTERIAL BLOOD SPECIMENOrdering Facility: [facility]Address: [address] [place], [place] [address]Performed By: #### ALLBG ####[facility] LABIA [id number] [place] [address] [place] AMERICAHematocrit (Bld) [Volume fraction]29.4 %Low39.0-51.0[facility]-FairhillComselect specialty hospital-[facility] on above:Order Comment: Specimen Type: ARTERIAL BLOOD SPECIMENOrdering Facility: [facility]Address: [address] [place] [id number] By: #### ALLBG ####[facility] LABIA [id number] [place] [address] [place] AMERICAHemoglobin (Bld) [Mass/Vol]9.5 g/dLLow13.0-17.0[facility] Comment on above:Order Comment: Specimen Type: ARTERIAL BLOOD SPECIMENOrdering Facility: [facility]Address: [address] [place] [id number] By: #### ALLBG ####[facility] LABIA [id number] [place] [address] [place] Lactate [Moles/Vol]9.1 mmol/LHigh0.5-2.2CSumma Health Akron CampusComselect specialty hospital-flint on above:Order Comment: Specimen Type: ARTERIAL BLOOD SPECIMENOrdering Facility: [facility]Address: [address] [place] [id number] Performed By: #### ALLBG ####[facility] LABIA [id number] [place] [id number] [place] AMERICAMethemoglobin (Bld) [Mass fraction]1.6 %High0.0-1.5CSt. [facility] on above: Order Comment: Specimen Type: ARTERIAL BLOOD SPECIMENOrdering Facility: [facility]Address: [address] [place] [address] Performed By: #### ALLBG ####[facility] LABCLIA [id number] [facility] [address] [address] [place] OF AMERICAOxygen (Bld) [Partial pressure]148 mm OpXmys48-71EjneigwsqKettering Health Behavioral Medical Center on above: Order Comment: Specimen Type: ARTERIAL BLOOD SPECIMENOrdering Facility: [facility]Address: [address] [place] [id number] Performed By: #### ALLBG ####[facility] LABCLIA [id number] [place] [address] [place] AMERICAOxyhemoglobin (BldA) [Mass fraction]96 %Uiobne75-79TnkpzkycwKettering Health Behavioral Medical Center on above: Order Comment: Specimen Type: ARTERIAL BLOOD SPECIMENOrdering Facility: [facility]Address: [address] [place] [phone] Performed By: #### ALLBG ####[facility] LABCLIA [id number] [place] [address] [place] AMERICApH (Bld)7.31 [pH]Low7.35-7.45[facility] on above:Order Comment: Specimen Type: ARTERIAL BLOOD SPECIMENOrdering Facility: [facility]Address: [address] [place] [phone] By: #### ALLBG ####[facility] LABCLIA [id number] [facility] [address] [address] [place] AMERICASodium [Moles/Vol]140 mmol/LNormal 136-144[facility] on above:Order Comment: Specimen Type: ARTERIAL BLOOD SPECIMENOrdering Facility: [facility]Address: [address] [place] [phone] By: #### ALLBG ####[facility] LABCLIA [id number] [place] [address] [place] AMERICABase deficit (BldA) [Moles/Vol]-6 mmol/LLow-2-0 [facility] on above:Order Comment: Specimen Type: ARTERIAL BLOOD SPECIMENOrdering Facility: [facility]Address: [address] [place], [place] [address]Performed By: #### ALLBG ####[facility] LABIA [id number] [place] [address] [place] AMERICACalcium.ionized (Bld) [Mass/Vol]1.21 mmol/LNormal 1.08-1.30[facility] on above:Order Comment: Specimen Type: ARTERIAL BLOOD SPECIMENOrdering Facility: [facility] Address: [address] [place], [place] [address]Performed By: #### ALLBG ####[facility] LABIA [id number] [address] STATES OF AMERICACalcium.ionized adjusted to pH 7.4 (BldA) [Moles/Vol]1.16 mmol/LNormal1.08-1.30[facility] on above:Order Comment: Specimen Type: ARTERIAL BLOOD SPECIMENOrdering Facility: [facility]Address: [address] [place] [address] Performed By: #### ALLBG ####[facility] LABIA [id number] [place] [address] [place] Carboxyhemoglobin (BldA) [Mass fraction]1.0 %Normal0.0-2.0[facility] on above:Order Comment: Specimen Type: ARTERIAL BLOOD SPECIMENOrdering Facility: [facility]Address: [address] [place], [place] [address]Result Comment: Carboxyhemoglobin Reference Range for Smokers: 2.0-8.0%Performed By: #### ALLBG ####[facility] LABIA [id number] [address] [place], [place] [address] [place] AMERICACO2 (Bld) [Partial pressure]39 mm FqHgwcjd04-82CrtruscdfSelect Medical Specialty Hospital [facility] Comment on above:Order Comment: Specimen Type: ARTERIAL BLOOD SPECIMENOrdering Facility: [facility]Address: [address] [phone] By: #### ALLBG ####[facility] LABCLIA [id number] [place] [address] [place] COMMENTSUrgent Value: LACNormalCSumma Health Akron CampusComselect specialty hospital-[facility]int on above:Order Comment: Specimen Type: ARTERIAL BLOOD SPECIMENOrdering Facility: [facility]Address: [address] [place], [place] [address]Performed By: #### ALLBG ####[facility] LABCLIA [id number] [place] [address] [place] AMERICADATE/TIME [id number] AMNormalSelect Medical Specialty Hospital - Cleveland-FairhillComment on above:Order Comment: Specimen Type: ARTERIAL BLOOD SPECIMENOrdering Facility: [facility]Address: [address] [place] [place], [place] [address]Performed By: #### ALLBG ####[facility] LABCLIA [id number] [place] [address] [place] AMERICAHCO3 (Bld) [Moles/Vol]19 mmol/FUey27-46SlknszohuKettering Health Behavioral Medical Center on above:Order Comment: Specimen Type: ARTERIAL BLOOD SPECIMENOrdering Facility: [facility]Address: [address] [place] [phone] By: #### ALLBG ####[facility] LABCLIA [id number] [place] [address] [place] AMERICAHematocrit (Bld) [Volume fraction]30.8 %Low39.0-51.0[facility] on above:Order Comment: Specimen Type: ARTERIAL BLOOD SPECIMENOrdering Facility: [facility]Address: [address], [place], [place] [address]Ddtuusoqf By: #### ALLBG ####[facility] LABIA [id number] [address] [address] [place] AMERICAHemoglobin (Bld) [Mass/Vol]10.0 g/dLLow13.0-17.0[facility]-FairhillComment on above:Order Comment: Specimen Type: ARTERIAL BLOOD SPECIMENOrdering Facility: [facility]Address: [address] [place], [place] [address]Ckclcuoze By: #### ALLBG ####[facility] [id number] [place] [address] [place] AMERICALactate [Moles/Vol]10.2 mmol/LHigh0.5-2.2CSumma Health [facility] Campus Comment on above:Order Comment: Specimen Type: ARTERIAL BLOOD SPECIMENOrdering Facility: [facility]Address: [address] [place] [place], [place] [address]Setrlymff By: #### ALLBG ####[facility] [id number] [place] [address] [place] Methemoglobin (Bld) [Mass fraction]1.1 %Normal0.0-1.5CSumma Health [facility] Campus Comment on above:Order Comment: Specimen Type: ARTERIAL BLOOD SPECIMENOrdering Facility: [facility]Address: [address] [place], [place] [address]Ztlapktzg By: #### ALLBG ####[facility] LABKER[facility] [id number] [place] [id number] [place] NOTIFIED WHOMA. SOFIE WINSTON Q50 D. D'AMICONormalSelect Medical [facility] Comment on above:Order Comment: Specimen Type: ARTERIAL BLOOD SPECIMENOrdering Facility: [facility]Address: [address] [place], [place] [address]Koyshiqeg By: #### ALLBG ####[facility] [id number] [place] [id number] [place] Oxygen (Bld) [Partial pressure]168 mm FzPodv42-12AqxebzytwSelect Medical Specialty [facility] Comment on above:Order Comment: Specimen Type: ARTERIAL BLOOD SPECIMENOrdering Facility: [facility]Address: [address] [place] [id number] By: #### ALLBG ####[facility] LABCLIA [id number] [address] [address] [place] Oxyhemoglobin (BldA) [Mass fraction]97 %Aiznqu06-47PqtsrxsfpSelect Medical Specialty [facility] Comment on above:Order Comment: Specimen Type: ARTERIAL BLOOD SPECIMENOrdering Facility: [facility]ITALAddress: [address] [place], [place] [address]Performed By: #### ALLBG ####[facility] LABIA [id number] [place] [address] [place] pH (Bld)7.31 [pH]Low7.35-7.45[facility]-FairhillComment on above:Order Comment: Specimen Type: ARTERIAL BLOOD SPECIMENOrdering Facility: [facility]Address: [address] [place], [place] [address]Performed By: #### ALLBG ####[facility] LABCLIA [id number] [place] [address] [place] AMERICAPotassium [Moles/Vol]3.8 mmol/L Normal3.5-5.0[facility]-FairhillComment on above:Order Comment: Specimen Type: ARTERIAL BLOOD SPECIMENOrdering Facility: [facility] Address: [address] [place], [place] [address]Performed By: #### ALLBG ####[facility] LABCLIA [id number] [place] [address] [place] AMERICASodium [Moles/Vol]140 mmol/LNormal 136-144[facility]-FairhillComselect specialty hospital-[facility] on above:Order Comment: Specimen Type: ARTERIAL BLOOD SPECIMENOrdering Facility: [facility]Address: [address] [place], [place] [address]Performed By: #### ALLBG ####[facility] LABIA [id number] [place] [address] [place] [facility] COUNTY HOSPITALCBC panel Auto (Bld)on 58-10-2464Yiypirxbwhj distribution width (RBC) [Ratio]14.5 %Hqvuex30.5-15.0[facility] Comment on above:Order Comment: Specimen Type: BLOOD SPECIMENOrdering Facility: [facility] Address:[address] [place] [address] Performed By: #### 82420-2 ####[facility] LABIA [id number] [place] [address] [place] Hematocrit (Bld) [Volume fraction]29.4 %Low39.0-51.0[facility] Comment on above:Order Comment: Specimen Type: BLOOD SPECIMENOrdering Facility: [facility] Address:[address] [place] [address] Performed By: #### 53998-3 ####[facility] [id number] [place] [address] [place] Hemoglobin (Bld) [Mass/Vol]9.6 g/dLLow13.0-17.0[facility] Cleveland-FairhillComment on above:Order Comment: Specimen Type: BLOOD SPECIMENOrdering Facility: [facility] Address:[address] [place] [address] Performed By: #### 62636-6 ####[facility] LABIA [id number] [place] [address] [place] MCH (RBC) [Entitic mass]29.8 tgMbnucf66.0-34.0[facility]-FairhillComment on above:Order Comment: Specimen Type: BLOOD SPECIMENOrdering Facility: [facility] Address:[address] [place] [address] Performed By: #### 23862-3 ####[facility] LABIA [id number] [place] [address] [place] MCHC (RBC) [Mass/Vol]32.7 g/gLNjoutq43.5-36.0[facility] on above:Order Comment: Specimen Type: BLOOD SPECIMENOrdering Facility: [facility] Address:[address] [place] [address] Performed By: #### 56046-2 ####[facility] LABIA [id number] [place] [address] [place] MCV (RBC) [Entitic vol]91.3 uJXyihdx27.0-100.0[facility] on above:Order Comment: Specimen Type: BLOOD SPECIMENOrdering Facility: [facility] Address:[address] [place] [address] Performed By: #### [id number] ####[facility] [id number] [place] [address] [place] Nucleated RBC (Bld) [#/Vol]10*3/uLNormal<0.01[facility] on above:Order Comment: Specimen Type: BLOOD SPECIMENOrdering Facility: [facility] Address:[address] [place] [address] Performed By: #### [id number] ####[facility] [id number] [place] [address] [place] Platelet mean volume (Bld) [Entitic vol]10.7 fLNormal9.0-12.7CSt. [facility] Hospital on above:Order Comment: Specimen Type: BLOOD SPECIMENOrdering Facility: [facility] Address:[address] [place], [place] [address]Performed By: #### 82153-4 ####[facility] LABCLIA [id number] [place] [address] [place] Platelets (Bld) [#/Vol]171 10*3/bZVncfoa123-141LrcqpbrsvKettering Health Behavioral [facility] on above:Order Comment: Specimen Type: BLOOD SPECIMENOrdering Facility: [facility] Address:[address] [place] [address] Performed By: #### 18944-6 ####[facility] LABCLIA [id number] [place] [address] [place] RBC (Bld) [#/Vol]3.22 10*6/uLLow4.20-6.00[facility]ment on above:Order Comment: Specimen Type: BLOOD SPECIMENOrdering Facility: [facility] Address:[address] [place], [place] [address]Performed By: #### 91764-0 ####[facility] LABIA [id number] [place] [address] [place] AMERICAWBC (Bld) [#/Vol]16.87 10*3/uLHigh3.70-11.00[facility] on above:Order Comment: Specimen Type: BLOOD SPECIMENOrdering Facility: [facility] Address:[address] [place], [place] [address]Performed By: #### 75087-0 ####[facility] LABIA [id number] [place] [address] [place] AMERICAComprehensive metabolic 2000 panelon 85-08-7185Crirhxt [Mass/Vol]3.0 g/dLLow3.9-4.9CSumma [facility] Comment on above:Order Comment: Specimen Type: BLOOD SPECIMENOrdering Facility: [facility] Address:[address] [place] [address] Performed By: #### 94520-5, HSTNT ####[facility] LABIA [id number] [place] [address] [place] ALP [Catalytic activity/Vol]30 U/XNim07-478DoapqosdxKettering Health Behavioral Medical Center on above:Order Comment: Specimen Type: BLOOD SPECIMENOrdering Facility: [facility] Address:[address] [place], [place] [address]Performed By: #### 10035-1, HSTNT ####[facility] LABCLIA [id number] [place] [address] [place] AMERICAALT [Catalytic activity/Vol]25 U/TDvfgde41-54GtnrnyohhKettering Health Behavioral Medical Center on above:Order Comment: Specimen Type: BLOOD SPECIMENOrdering Facility: [facility] Address:[address] [place], [place] [address]Performed By: #### 72888- 8, HSTNT ####[facility] LABCLIA [id number] [place] [address] [place] AMERICAAnion gap [Moles/Vol]15 mmol/LNormal8-15[facility] on above:Order Comment: Specimen Type: BLOOD SPECIMENOrdering Facility: [facility] Address:[address] [place], [place] [address]Performed By: #### 99568-1, HSTNT ####[facility] LABCLIA [id number] [place] [address] [place] AMERICAAST [Catalytic activity/Vol]81 U/VYotf37-94CkffsihrwKettering Health Behavioral Medical Center on above:Order Comment: Specimen Type: BLOOD SPECIMENOrdering Facility: [facility] Address:[address] [place], [place] [address]Performed By: #### 49170-1, HSTNT ####[facility] LABCLIA [id number] [place] [address] [place] AMERICABilirubin [Mass/Vol]0.7 mg/dLNormal0.2-1.3 [facility] on above:Order Comment: Specimen Type: BLOOD SPECIMENOrdering Facility: [facility] Address:[address] [place], [place] [address]Performed By: #### 39146-0, HSTNT ####[facility] LABCLIA [id number] [place] [id number] [place] AMERICACalcium [Mass/Vol]8.6 mg/dLNormal8.5-10.2CSt. [facility] on above:Order Comment: Specimen Type: BLOOD SPECIMENOrdering Facility: [facility] Address:[address] [place], [place] [address]Performed By: #### 30205-8, HSTNT ####[facility] LABCLIA [id number] [place] [address] [place] Chloride [Moles/Vol]109 mmol/HPyix00-617CilkzuwxuKettering Health Behavioral Medical Center on above:Order Comment: Specimen Type: BLOOD SPECIMENOrdering Facility: [facility] Address:[address] [place], [place] [address]Performed By: #### 83342-5, HSTNT ####[facility] LABCLIA [id number] [place] [address] [place] AMERICACO2 [Moles/Vol]20 mmol/NDel74-35BmmsuftpzKettering Health Behavioral Medical Center on above:Order Comment: Specimen Type: BLOOD SPECIMENOrdering Facility: [facility] Address:[address] [place], [place] [address]Performed By: #### 66817-4, HSTNT ####[facility] LABCLIA [id number] [place] [address] [place] AMERICACreatinine [Mass/Vol]1.86 mg/dLHigh0.73-1.22 [facility] on above:Order Comment: Specimen Type: BLOOD SPECIMENOrdering Facility: [facility] Address:[address] [place], [place] [address]Performed By: #### 81518-6, HSTNT ####[facility] LABCLIA [id number] [place] [address] [place] AMERICACreatinine and Glomerular filtration rate.predicted panel (S/P/Bld)37 mL/min/1.73m???Low>=60[facility] on above: Order Comment: Specimen Type: BLOOD SPECIMENOrdering Facility: [facility] Address:[address] [place], [place] [address]Result Comment: Estimated Glomerular Filtration Rate (eGFR) is calculated using the 2020 CKD-EPI cre atinine equation. This equation utilizes serum creatinine, sex, and age as parameters. The creatinine assay has traceable calibration to isotope dilution- mass spectrometry. Refer to KDIGO guidelines for clinical interpretation. In patients with unstable renal function, e.g. those with acute kidney injury, the eGFR may not accurately reflect actual GFR.Performed By: #### 50121-5, HSTNT ####[facility] LABCLIA [id number] [place] [address] [place] AMERICAGlucose [Mass/Vol]117 mg/dLHigh 74-99[facility] on above:Order Comment: Specimen Type: BLOOD SPECIMENOrdering Facility: [facility] Address:[address] [place], [place] [address]Result Comment: The [place] Diabetes Association (ADA) provides guidance for cutoff [...] unequivocal hyperglycemia, results should be confirmed by repeattesting. In a patient with classic symptoms of hyperglycemia or hyperglycemic crisis, random plasmaglucose results greater than or equal to 200 mg/dL meet the criteria for diagnosis of diabetes.Reference: Standards of Medical Care in Diabetes 2016, [place] [employer]. Diabetes Care. 2016.39(Suppl 1).Performed By: #### 10729- 8, HSTNT ####[facility] LABIA [id number] [place] [address] [place] AMERICAPotassium [Moles/Vol]4.5 mmol/LNormal3.7-5.1CSt. [facility] on above:Order Comment: Specimen Type: BLOOD SPECIMENOrdering Facility: [facility] Address:[address] [place], [place] [address]Performed By: #### 54840-1, HSTNT ####[facility] LABCLIA [id number] [place] [address] [place] AMERICAProtein [Mass/Vol]4.5 g/dLLow 6.3-8.0[facility] on above:Order Comment: Specimen Type: BLOOD SPECIMENOrdering Facility: [facility] Address:[address] [place], [place] [address]Performed By: #### 47894-9, HSTNT ####[facility] LABIA [id number] [place] [address] [place] AMERICASodium [Moles/Vol]144 mmol/UPhnfko568-626AjqxozmpxKettering Health Behavioral Medical Center on above:Order Comment: Specimen Type: BLOOD SPECIMENOrdering Facility: [facility] Address:[address] [place], [place] [address]Performed By: #### 43888-2, HSTNT ####[facility] LABIA [id number] [place] [address] [place] AMERICAUrea nitrogen [Mass/Vol]26 mg/dLHigh9-24[facility] on above:Order Comment: Specimen Type: BLOOD SPECIMENOrdering Facility: [facility] Address:[address] [place], [place] [address]Performed By: #### 31465-2, HSTNT ####[facility] LABIA [id number] [place] [address] [place] Gas + CO Pnl BldVon 62-51-4536Rflt qezosxxyzrl94.6 [degF]NormalKettering Health Behavioral Medical Center on above:Order Comment: Specimen Type: VENOUS BLOOD SPECIMENOrdering Facility: [facility] Address: [address] [place], [place] [address]Performed By: #### 35621-5 ####[facility] LABIA [id number] [place] [id number] [place] AMERICAOrder Comment: Specimen Type: ARTERIAL BLOOD SPECIMENOrdering Facility: [facility]Address: [address] [place] [id number] Performed By: #### ALLBG ####[facility] LABCLIA [id number] [place] [address] [place] AMERICAHematocrit (Bld) [Volume fraction]27.0 %Low39.0-51.0[facility] on above:Order Comment: Specimen Type: VENOUS BLOOD SPECIMENOrdering Facility: [facility] Address: [address] [place] [address] Performed By: #### 03035-0 ####[facility] LABCLIA [id number] [place] [address] [place] Order Comment: Specimen Type: ARTERIAL BLOOD SPECIMENOrdering Facility: [facility]Address: [address] [place] [address] Performed By: #### ALLBG ####[facility] LABCLIA [id number] [place] [address] [place] AMERICAHemoglobin (Bld) [Mass/Vol]8.7 g/dLLow13.0-17.0[facility] on above: Order Comment: Specimen Type: VENOUS BLOOD SPECIMENOrdering Facility: [facility] Address: [address] [place], [place] [address]Performed By: #### 74073-7 ####[facility] LABCLIA [id number] [place] [address] [place] AMERICAOrder Comment: Specimen Type: ARTERIAL BLOOD SPECIMENOrdering Facility: [facility]Address: [address] [place], [place] [address]Performed By: #### ALLBG ####[facility] LABCLIA [id number] [facility] [place] [address] [place] AMERICALITERS2 Liters/minNormalCMercy Health Anderson HospitalvelandComment on above:Order Comment: Specimen Type: VENOUS BLOOD SPECIMENOrdering Facility: [facility] Address: [address] [place], [place] [address]Performed By: #### 79758-9 ####[facility] LABCLIA [id number] [facility] [place] [id number] [place] AMERICAOrder Comment: Specimen Type: ARTERIAL BLOOD SPECIMENOrdering Facility: [facility]Address: [address] [place] [id number] Performed By: #### ALLBG ####[facility] LABCLIA [id number] [address] STATES OF AMERICAO2 THERAPYNC = Nasal CannulaNormSelect Medical TriHealth Rehabilitation HospitalComselect specialty hospital-[facility] on above:Order Comment: Specimen Type: VENOUS BLOOD SPECIMENOrdering Facility: [facility] Address: [address] [place], [place] [address]Performed By: #### 17134-6 ####[facility] LABCLIA [id number] [facility] [place] [address] [place] AMERICAOrder Comment: Specimen Type: ARTERIAL BLOOD SPECIMENOrdering Facility: [facility]Address: [address] [place], [place] [address]Performed By: #### ALLBG ####[facility] LABCLIA [id number] [facility] [place] [address] [place] AMERICABody zujhunsrtfx53.6 [degF]Normal [facility] on above:Order Comment: Specimen Type: VENOUS BLOOD SPECIMENOrdering Facility: [facility] Address: [address] [place], [place] [address]Performed By: #### 33062-0 ####[facility] LABCLIA [id number] [facility] [place] [address] [place] AMERICAOrder Comment: Specimen Type: ARTERIAL BLOOD SPECIMENOrdering Facility: [facility]Address: [address] [place], [place] [address]Performed By: #### ALLBG ####[facility] LABCLIA [id number] [facility] [facility] [address] [address] [place] AMERICALITERS2 Liters/minNormalCSt. [facility] Hospital on above:Order Comment: Specimen Type: VENOUS BLOOD SPECIMENOrdering Facility: [facility] Address: [address] [place], [place] [address]Performed By: #### 90147-0 ####[facility] LABCLIA [id number] [facility] [address] [address] [place] AMERICAOrder Comment: Specimen Type: ARTERIAL BLOOD SPECIMENOrdering Facility: [facility]Address: [facility] [place], [place] [address]Performed By: #### ALLBG ####[facility] LABCLIA [id number] [place] [address] [place] STATES OF AMERICAO2 THERAPYNC = Nasal CannulaNormal [facility]-FairhillComment on above:Order Comment: Specimen Type: VENOUS BLOOD SPECIMENOrdering Facility: [facility] Address: [address] [place], [place] [address]Performed By: #### 71410-9 ####[facility] LABCLIA [id number] [place] [id number] [place] AMERICAOrder Comment: Specimen Type: ARTERIAL BLOOD SPECIMENOrdering Facility: [facility]Address: [address] [place] [id number] By: #### ALLBG ####[facility] LABCLIA [id number] [address] [address] [place] AMERICAPotassium [Moles/Vol]5.0 mmol/LNormal3.5-5.0[facility] Comment on above:Order Comment: Specimen Type: VENOUS BLOOD SPECIMENOrdering Facility: [facility] Address: [address] [place], [place] [address]Performed By: #### 42423-7 ####[facility] LABCLIA [id number] [address] [address] [place] Order Comment: Specimen Type: ARTERIAL BLOOD SPECIMENOrdering Facility: [facility]Address: [address] [place] [address] Performed By: #### ALLBG ####[facility] LABCLIA [id number] [address] [address] [place] AMERICABody emcflmppehu13.6 [degF]NormalKettering Health Behavioral Medical Center on above:Order Comment: Specimen Type: VENOUS BLOOD SPECIMENOrdering Facility: [facility] Address: [address] [place], [place] [address]Performed By: #### 33933-3 ####[facility] LABCLIA [id number] [address] [address] [place] AMERICAOrder Comment: Specimen Type: ARTERIAL BLOOD SPECIMENOrdering Facility: [facility]Address: [address] [place], [place] [address]Performed By: #### ALLBG ####[facility] LABCLIA [id number] [address] [address] [place] AMERICAHemoglobin (Bld) [Mass/Vol]9.8 g/dLLow13.0-17.0[facility] on above:Order Comment: Specimen Type: VENOUS BLOOD SPECIMENOrdering Facility: [facility] Address: [address] [place] [id number] By: #### 00536-4 ####[facility] LABCLIA [id number] [address] [address] [place] AMERICAOrder Comment: Specimen Type: ARTERIAL BLOOD SPECIMENOrdering Facility: [facility]Address: [address] [place] [id number] By: #### ALLBG ####[facility] LABCLIA [id number] [address] [address] [place] AMERICAO2 THERAPYPositiveNormalCSt. [facility] Hospital on above:Order Comment: Specimen Type: VENOUS BLOOD SPECIMENOrdering Facility: [facility] Address: [address] [place], [place] [address]Sgcnmxvyj By: #### 86782-7 ####[facility] LABCLIA [id number] [facility] [facility] [address] [address] [place] AMERICAOrder Comment: Specimen Type: ARTERIAL BLOOD SPECIMENOrdering Facility: [facility]Address: [address] [place] [id number] Performed By: #### ALLBG ####[facility] LABCLIA [id number] [facility] [address] [address] [place] AMERICABody ykaksypuqhm96.6 [degF]NormalKettering Health Behavioral Medical Center on above:Order Comment: Specimen Type: VENOUS BLOOD SPECIMENOrdering Facility: [facility] Address: [address] [place] [id number] By: #### 66505-3 ####[facility] LABCLIA [id number] [facility] [address] [address] [place] AMERICAOrder Comment: Specimen Type: ARTERIAL BLOOD SPECIMENOrdering Facility: [facility]Address: [address] [place] [id number] By: #### ALLBG ####[facility] LABCLIA [id number] [facility] [address] [address] [place] STATES [place]O2 THERAPYVENT=VentilatorNormal [facility]-FairhillComselect [facility] on above:Order Comment: Specimen Type: VENOUS BLOOD SPECIMENOrdering Facility: [facility] Address: [address] [place] [id number] By: #### 48062-8 ####[facility] LABCLIA [id number] [facility] [address] [address] [place] OF AMERICAOrder Comment: Specimen Type: ARTERIAL BLOOD SPECIMENOrdering Facility: [facility]Address: [address] [place], [place] [address]Xzzfrqyyt By: #### ALLBG ####[facility] LABCLIA [id number] [place] [address] [place] AMERICAPotassium [Moles/Vol]3.8 mmol/LNormal3.5-5.0[facility] Comment on above:Order Comment: Specimen Type: VENOUS BLOOD SPECIMENOrdering Facility: [facility] Address: [address] [place], [place] [address]Performed By: #### 62972-2 ####[facility] LABCLIA [id number] [place] [address] [place] Order Comment: Specimen Type: ARTERIAL BLOOD SPECIMENOrdering Facility: [facility]Address: [address] [place] [address] Performed By: #### ALLBG ####[facility] LABCLIA [id number] [place] [address] [place] AMERICABody ypahvnxhmzp20.6 [degF]NormalSelect Medical Specialty Hospital - Cleveland-FairhillComment on above:Order Comment: Specimen Type: VENOUS BLOOD SPECIMENOrdering Facility: [facility] Address: [address] [place], [place] [address]Performed By: #### 40709-2 ####[facility] LABCLIA [id number] [address] STATES OF AMERICAOrder Comment: Specimen Type: ARTERIAL BLOOD SPECIMENOrdering Facility: [facility]Address: [address] [place], [place] [address]Performed By: #### ALLBG ####[facility] LABCLIA [id number] [place] [address] [place] AMERICAGlucose [Mass/Vol]156 mg/dLHigh 60-105[facility]-FairhillComment on above:Order Comment: Specimen Type: VENOUS BLOOD SPECIMENOrdering Facility: [facility] Address: [address] [place], [place] [address]Performed By: #### 94541-9 ####[facility] LABCLIA [id number] [address] [id number] [address] [place] AMERICAOrder Comment: Specimen Type: ARTERIAL BLOOD SPECIMENOrdering Facility: [facility]Address: [address] [place], [place] [address]Lqrgnyfno By: #### ALLBG ####[facility] LABCLIA [id number] [address] [address] [place] AMERICAO2 THERAPYVENT=VentilatorNormalCSumma Health Akron CampusComment on above:Order Comment: Specimen Type: VENOUS BLOOD SPECIMENOrdering Facility: [facility] Address: [address] [place] [address] Performed By: #### 74569-5 ####[facility] LABCLIA [id number] [address] [address] [place] Order Comment: Specimen Type: ARTERIAL BLOOD SPECIMENOrdering Facility: [facility]Address: [address] [place] [address] Performed By: #### ALLBG ####[facility] LABCLIA [id number] [address] [address] [place] AMERICAPEEP/CPAP10 vuX8OZxpnhjTqxeijfsqSelect Medical Specialty Hospital - TrumbullComment on above:Order Comment: Specimen Type: VENOUS BLOOD SPECIMENOrdering Facility: [facility] Ad dress: [address] [place], [place] [address]Wokpzmscz By: #### 58615-5 ####[facility] LABCLIA [id number] [address] [address] [place] AMERICAOrder Comment: Specimen Type: ARTERIAL BLOOD SPECIMENOrdering Facility: [facility]Address: [address] [place], [place] [address]Qjuwxlezg By: #### ALLBG ####[facility] LABCLIA [id number] [address] [address] [place] AMERICAGas and Carbon monoxide panel (BldV)on 06-19-2024 Base excess Calc (BldV) [Moles/Vol]2 mmol/LNormal0-2ClevelAtrium Health Comment on above:Order Comment: Specimen Type: VENOUS BLOOD SPECIMENOrdering Facility: [facility] Address: [address] [place], [place] [address]Performed By: #### 71791-5 ####[facility] LABIA [id number] [place] [address] [place] Body ktldcnzknyp89.6 [degF]NormalSelect Medical Specialty Hospital - Cleveland-FairhillComselect specialty hospital-[facility] on above: Order Comment: Specimen Type: VENOUS BLOOD SPECIMENOrdering Facility: [facility] Address: [address] [place], [place] [address]Performed By: #### 13550-9 ####[facility] LABIA [id number] [place] [address] [place] AMERICACalcium.ionized (Bld) [Mass/Vol]1.21 mmol/LNormal1.08-1.30[facility] on above: Order Comment: Specimen Type: VENOUS BLOOD SPECIMENOrdering Facility: [facility] Address: [address] [place], [place] [address]Performed By: #### 32294-0 ####[facility] LABIA [id number] [place] [address] [place] AMERICACalcium.ionized adjusted to pH 7.4 (BldA) [Moles/Vol]1.18 mmol/LNormal1.08-1.30[facility] on above:Order Comment: Specimen Type: VENOUS BLOOD SPECIMENOrdering Facility: [facility] Address: [address] [place], [place] [address]Performed By: #### 77323-6 ####[facility] LABIA [id number] [place] [address] [place] AMERICACarboxyhemoglobin (BldV) [Mass fraction]1.5 %Normal0.0-2.0[facility] on above:Order Comment: Specimen Type: VENOUS BLOOD SPECIMENOrdering Facility: [facility] Address: [address] [place], [place] [address]Result Comment: Carboxyhemoglobin Reference Range for Smokers: 2.0-8.0%Performed By: #### 01143-5 ####[facility] LABIA [id number] [place] [address] [place] AMERICACO2 (BldV) [Partial pressure]53 mm[Hg]Mczisd55-05GpaldncdiKettering Health Behavioral Medical Center on above:Order Comment: Specimen Type: VENOUS BLOOD SPECIMENOrdering Facility: [facility] Address: [address] [place], [place] [address]Performed By: #### 38078-7 ####[facility] LABIA [id number] [place] [address] [place] AMERICAGlucose [Mass/Vol]150 mg/bPCfys08-938HgifsfglvSelect Medical Specialty Hospital - Cleveland-FairhillComment on above:Order Comment: Specimen Type: VENOUS BLOOD SPECIMENOrdering Facility: [facility] Address: [address] [place] [address] Performed By: #### 22719-4 ####[facility] LABIA [id number] [place] [address] [place] HCO3 (Bld) [Moles/Vol]28 mmol/ZZpykfd33-38JcarjgbexKettering Health Behavioral Medical Center on above:Order Comment: Specimen Type: VENOUS BLOOD SPECIMENOrdering Facility: [facility] Address: [address] [place] [address] Performed By: #### 27936-2 ####[facility] LABIA [id number] [place] [address] [place] Hematocrit (Bld) [Volume fraction]26.9 %Low39.0-51.0[facility] Comment on above:Order Comment: Specimen Type: VENOUS BLOOD SPECIMENOrdering Facility: [facility] Address: [address] [place], [place] [address]Performed By: #### [id number] ####[facility] [id number] [place] [address] [place] Hemoglobin (Bld) [Mass/Vol]8.7 g/dLLow13.0-17.0[facility] on above:Order Comment: Specimen Type: VENOUS BLOOD SPECIMENOrdering Facility: [facility] Address: [address] [place] [address] Performed By: #### 39152-1 ####[facility] LABCLIA [id number] [place] [address] [place] Lactate [Moles/Vol]1.5 mmol/LNormal0.5-2.2CSt. [facility] on above:Order Comment: Specimen Type: VENOUS BLOOD SPECIMENOrdering Facility: [facility] Address: [address] [place] [address] Performed By: #### 79739-5 ####[facility] LABCLIA [id number] [place] [address] [place] LITERS2 Liters/minNormalCSt. Vincent Hospital on above:Order Comment: Specimen Type: VENOUS BLOOD SPECIMENOrdering Facility: [facility] Address: [address] [place], [place] [address]Performed By: #### 20927-7 ####[facility] LABCLIA [id number] [place] [address] [place] AMERICAMethemoglobin (Bld) [Mass fraction]0.6 %Normal0.0-1.5CSt. [facility] Hospital on above: Order Comment: Specimen Type: VENOUS BLOOD SPECIMENOrdering Facility: [facility] Address: [address] [place], [place] [address]Performed By: #### 19212-5 ####[facility] LABCLIA [id number] [place] [address] [place] AMERICAO2 THERAPYNC = Nasal CannulaNormalCSt. [facility] Hospital on above:Order Comment: Specimen Type: VENOUS BLOOD SPECIMENOrdering Facility: [facility] Ad dress: [address] [place], [place] [address]Performed By: #### 03982-5 ####[facility] LABCLIA [id number] [place] [address] [place] AMERICAOxygen (BldV) [Partial pressure] 35 mm[Hg]Gjxhih77-93PhesqmbwdKettering Health Behavioral Medical Center on above:Order Comment: Specimen Type: VENOUS BLOOD SPECIMENOrdering Facility: [facility] Address: [address] [place], [place] [address]Performed By: #### 18076-8 ####[facility] LABCLIA [id number] [address] STATES OF AMERICAOxygen saturation in Venous blood60 %Sgwmxw76-62GfeujiiatKettering Health Behavioral Medical Center on above:Order Comment: Specimen Type: VENOUS BLOOD SPECIMENOrdering Facility: [facility] Address: [address] [place], [place] [address]Performed By: #### 05631-9 ####[facility] LABCLIA [id number] [address] STATES OF AMERICAOxyhemoglobin (BldV) [Mass fraction]58 %Mcu25-19XkruoxnfsKettering Health Behavioral Medical Center on above:Order Comment: Specimen Type: VENOUS BLOOD SPECIMENOrdering Facility: [facility] Address: [address] [place], [place] [address]Performed By: #### 37230-4 ####[facility] LABIA [id number] [place] [address] [place] AMERICApH (BldV)7.34 [pH] Normal7.32-7.42[facility] on above:Order Comment: Specimen Type: VENOUS BLOOD SPECIMENOrdering Facility: [facility] Address: [address] [place], [place] [address]Performed By: #### 78950-5 ####[facility] LABCLIA [id number] [place] [id number] [place] AMERICAPotassium [Moles/Vol] 4.8 mmol/LNormal3.5-5.0[facility] on above:Order Comment: Specimen Type: VENOUS BLOOD SPECIMENOrdering Facility: [facility] Address: [address] [place], [place] [address]Performed By: #### 34201-0 ####[facility] LABCLIA [id number] [place] [address] [place] AMERICASodium [Moles/Vol]136 mmol/EDouaxb796-081PrbbkptbiKettering Health [facility]al [facility] Center on above:Order Comment: Specimen Type: VENOUS BLOOD SPECIMENOrdering Facility: [facility] Address: [address] [place], [place] [address]Performed By: #### 09465-6 ####[facility] LABIA [id number] [place] [address] [place] AMERICABase excess Calc (BldV) [Moles/Vol]2 mmol/LNormal0-2CSt. [facility] on above: Order Comment: Specimen Type: VENOUS BLOOD SPECIMENOrdering Facility: [facility] Address: [address] [place], [place] [address]Performed By: #### 80883-4 ####[facility] LABIA [id number] [place] [address] [place] AMERICABody xxvlmotdbvq56.6 [degF]NormalKettering Health Behavioral Medical Center on above:Order Comment: Specimen Type: VENOUS BLOOD SPECIMENOrdering Facility: [facility] Ad dress: [facility] [place], [place] [address]Performed By: #### 57666-6 ####[facility] LABIA [id number] [place] [address] [place] AMERICACalcium.ionized (Bld) [Mass/Vol] 1.22 mmol/LNormal1.08-1.30[facility] on above:Order Comment: Specimen Type: VENOUS BLOOD SPECIMENOrdering Facility: [facility] Address: [address] [place], [place] [address]Performed By: #### 83569-2 ####[facility] LABIA [id number] [place] [address] [place]ACalcium.ionized adjusted to pH 7.4 (BldA) [Moles/Vol]1.18 mmol/LNormal1.08-1.30[facility] on above:Order Comment: Specimen Type: VENOUS BLOOD SPECIMENOrdering Facility: [facility] Address: [address] [place], [place] [address]Performed By: #### 94322-4 ####[facility] [id number] [place] [address] [place]ICACarboxyhemoglobin (BldV) [Mass fraction]1.3 %Normal0.0-2.0[facility] on above:Order Comment: Specimen Type: VENOUS BLOOD SPECIMENOrdering Facility: [facility] Address: [address] [place], [place] [address]Result Comment: Carboxyhemoglobin Reference Range for Smokers: 2.0-8.0%Performed By: #### 79058-2 ####[facility] [id number] [place] [address] [place]ICACO2 (BldV) [Partial pressure]52 mm[Hg]Asypkz85-30FxobzszsyKettering Health Behavioral Medical Center on above:Order Comment: Specimen Type: VENOUS BLOOD SPECIMENOrdering Facility: [facility] Address: [address] [place], [place] [address]Performed By: #### 24488-8 ####[facility] LABIA [id number] [place] [id number] [place] AMERICAGlucose [Mass/Vol]154 mg/dNAhxu27-258JuicfoxvlKettering Health Behavioral Medical Center on above:Order Comment: Specimen Type: VENOUS BLOOD SPECIMENOrdering Facility: [facility] Address: [address] [place] [address] Performed By: #### 64572-7 ####[facility] [id number] [place] [address] [place] HCO3 (Bld) [Moles/Vol]27 mmol/MTbvobc56-93NgvijnersKettering Health Behavioral Medical Center on above:Order Comment: Specimen Type: VENOUS BLOOD SPECIMENOrdering Facility: [facility] Address: [address] [place] [address] Performed By: #### 87524-1 ####[facility] LABCLIA [id number] [place] [address] [place] Hematocrit (Bld) [Volume fraction]26.7 %Low39.0-51.0[facility] Comment on above:Order Comment: Specimen Type: VENOUS BLOOD SPECIMENOrdering Facility: [facility] Address: [address] [place], [place] [address]Performed By: #### 99959-4 ####[facility] LABCLIA [id number] [place] [address] [place] Hemoglobin (Bld) [Mass/Vol]8.6 g/dLLow13.0-17.0[facility] on above:Order Comment: Specimen Type: VENOUS BLOOD SPECIMENOrdering Facility: [facility] Address: [address] [place] [address] Performed By: #### 56588-6 ####[facility] LABIA [id number] [place] [address] [place] Lactate [Moles/Vol]1.3 mmol/LNormal0.5-2.2CSt. [facility] on above:Order Comment: Specimen Type: VENOUS BLOOD SPECIMENOrdering Facility: [facility] Address: [address] [place] [address] Performed By: #### 15827-3 ####[facility] LABCLIA [id number] [place] [address] [place] LITERS2 Liters/minNormalClevelMarymount Hospital on above:Order Comment: Specimen Type: VENOUS BLOOD SPECIMENOrdering Facility: [facility] Address: [address] [place], [place] [address]Performed By: #### 17302-6 ####[facility] LABCLIA [id number] [place] [address] [place] AMERICAMethemoglobin (Bld) [Mass fraction]1.4 %Normal0.0-1.5CSt. [facility] on above: Order Comment: Specimen Type: VENOUS BLOOD SPECIMENOrdering Facility: [facility] Address: [address] [place], [place] [address]Performed By: #### 03246-4 ####[facility] LABIA [id number] [address] STATES OF AMERICAO2 THERAPYNC = Nasal CannulaNormalCSt. [facility] Hospital on above:Order Comment: Specimen Type: VENOUS BLOOD SPECIMENOrdering Facility: [facility] Ad dress: [address] [place], [place] [address]Performed By: #### 84374-1 ####[facility] LABIA [id number] [place] [address] [place] AMERICAOxygen (BldV) [Partial pressure] 51 mm[Hg]Gsvz16-99NtvysaqynKettering Health Behavioral Medical Center on above:Order Comment: Specimen Type: VENOUS BLOOD SPECIMENOrdering Facility: [facility] Address: [address] [place], [place] [address]Performed By: #### 64670-1 ####[facility] LABCLIA [id number] [place] [address] [place] AMERICAOxygen saturation in Venous blood85 %Atuuid69-51QflpcokutKettering Health Behavioral Medical Center on above:Order Comment: Specimen Type: VENOUS BLOOD SPECIMENOrdering Facility: [facility] Address: [address] [place], [place] [address]Performed By: #### 67467-1 ####[facility] LABIA [id number] [place] [address] [place] AMERICAOxyhemoglobin (BldV) [Mass fraction]83 %Dadijh21-33XzhpecxlzKettering Health Behavioral Medical Center on above:Order Comment: Specimen Type: VENOUS BLOOD SPECIMENOrdering Facility: [facility] Address: [address] [place], [place] [address]Performed By: #### 85790-1 ####[facility] LABCLIA [id number] [place] [address] [place] AMERICApH (BldV)7.34 [pH] Normal7.32-7.42[facility] on above:Order Comment: Specimen Type: VENOUS BLOOD SPECIMENOrdering Facility: [facility] Address: [address] [place], [place] [address]Performed By: #### 74654-3 ####[facility] LABCLIA [id number] [place] [address] [place]ICAPotassium [Moles/Vol] 4.6 mmol/LNormal3.5-5.0[facility] on above:Order Comment: Specimen Type: VENOUS BLOOD SPECIMENOrdering Facility: [facility] Address: [address] [place], [place] [address]Performed By: #### 55123-0 ####[facility] LABIA [id number] [place] [address] [place]ASodium [Moles/Vol]135 mmol/ZBup779-144NhxovtatpKettering Health Behavioral [facility] Center on above:Order Comment: Specimen Type: VENOUS BLOOD SPECIMENOrdering Facility: [facility] Address: [address] [place], [place] [address]Performed By: #### 72554-0 ####[facility] LABIA [id number] [place] [address] [place]ABase excess Calc (BldV) [Moles/Vol]1 mmol/LNormal0-2CSt. [facility] on above: Order Comment: Specimen Type: VENOUS BLOOD SPECIMENOrdering Facility: [facility] Address: [address] [place], [place] [address]Performed By: #### 20544-3 ####[facility] LABCLIA [id number] [place] [id number] [place] AMERICABody deqsthmtvfn44.6 [degF]NormalKettering Health Behavioral Medical Center on above:Order Comment: Specimen Type: VENOUS BLOOD SPECIMENOrdering Facility: [facility] Ad dress: [address] [place], [place] [id number] By: #### 43088-0 ####[facility] LABCLIA [id number] [place] [id number] [place] AMERICACalcium.ionized (Bld) [Mass/Vol] 1.19 mmol/LNormal1.08-1.30[facility] on above:Order Comment: Specimen Type: VENOUS BLOOD SPECIMENOrdering Facility: [facility] Address: [address] [place], [place] [id number] By: #### 74855-2 ####[facility] LABIA [id number] [place] [address] [place]ACalcium.ionized adjusted to pH 7.4 (BldA) [Moles/Vol]1.17 mmol/LNormal1.08-1.30[facility] on above:Order Comment: Specimen Type: VENOUS BLOOD SPECIMENOrdering Facility: [facility] Address: [address] [place] [id number] By: #### 85623-1 ####[facility] LABIA [id number] [place] [id number] [place]ACarboxyhemoglobin (BldV) [Mass fraction]1.5 %Normal0.0-2.0[facility] on above:Order Comment: Specimen Type: VENOUS BLOOD SPECIMENOrdering Facility: [facility] Address: [address] [place], [place] [id number] Comment: Carboxyhemoglobin Reference Range for Smokers: 2.0-8.0%Performed By: #### 95586-3 ####[facility] LABCLIA [id number] [place] [address] [place]ACO2 (BldV) [Partial pressure]47 mm[Hg]Fmscne00-94BdlhtyzscKettering Health Behavioral [facility] Center on above:Order Comment: Specimen Type: VENOUS BLOOD SPECIMENOrdering Facility: [facility] Address: [address] [place], [place] [address]Performed By: #### 25665-5 ####[facility] LABCLIA [id number] [place] [address] [place] AMERICAGlucose [Mass/Vol]150 mg/hHCsej70-542NpmubfjmqKettering Health [facility]al [facility] on above:Order Comment: Specimen Type: VENOUS BLOOD SPECIMENOrdering Facility: [facility] Address: [address] [place] [address] Performed By: #### 49700-2 ####[facility] LABIA [id number] [place] [address] [place] HCO3 (Bld) [Moles/Vol]26 mmol/EOxsbfx51-63TijaewrrbKettering Health Behavioral [facility] Center on above:Order Comment: Specimen Type: VENOUS BLOOD SPECIMENOrdering Facility: [facility] Address: [address] [place] [address] Performed By: #### 46123-7 ####[facility] LABIA [id number] [place] [address] [place] Hematocrit (Bld) [Volume fraction]27.1 %Low39.0-51.0[facility] Comment on above:Order Comment: Specimen Type: VENOUS BLOOD SPECIMENOrdering Facility: [facility] Address: [address] [place], [place] [address]Performed By: #### 72930-0 ####[facility] LABIA [id number] [place] [address] [place] Hemoglobin (Bld) [Mass/Vol]8.7 g/dLLow13.0-17.0[facility] on above:Order Comment: Specimen Type: VENOUS BLOOD SPECIMENOrdering Facility: [facility] Address: [address] [place] [address] Performed By: #### 97450-5 ####[facility] LABCLIA [id number] [place] [address] [place] Lactate [Moles/Vol]1.4 mmol/LNormal0.5-2.2ClevelMarymount Hospital on above:Order Comment: Specimen Type: VENOUS BLOOD SPECIMENOrdering Facility: [facility] Address: [address] [place] [address] Performed By: #### 45104-3 ####[facility] LABCLIA [id number] [place] [address] [place] LITERS2 Liters/minNormalClevelMarymount Hospital on above:Order Comment: Specimen Type: VENOUS BLOOD SPECIMENOrdering Facility: [facility] Address: [address] [place], [place] [address]Performed By: #### 01401-0 ####[facility] LABCLIA [id number] [place] [address] [place] AMERICAMethemoglobin (Bld) [Mass fraction]0.8 %Normal0.0-1.5ClevelMarymount Hospital on above: Order Comment: Specimen Type: VENOUS BLOOD SPECIMENOrdering Facility: [facility] Address: [address] [place], [place] [address]Performed By: #### 67536-2 ####[facility] LABCLIA [id number] [place] [address] [place]O2 THERAPYNC = Nasal CannulaNormalClevelMarymount Hospital on above:Order Comment: Specimen Type: VENOUS BLOOD SPECIMENOrdering Facility: [facility] Ad dress: [address] [place], [place] [address]Performed By: #### 72036-2 ####[facility] LABCLIA [id number] [place] [address] [place] AMERICAOxygen (BldV) [Partial pressure] 41 mm[Hg]Kzerwk40-41TepmmqkvwKettering Health Behavioral Medical Center on above:Order Comment: Specimen Type: VENOUS BLOOD SPECIMENOrdering Facility: [facility] Address: [address] [place], [place] [address]Performed By: #### 42604-0 ####[facility] LABCLIA [id number] [address] STATES OF AMERICAOxygen saturation in Venous blood71 %Xueyjw23-64NgbiryhntKettering Health Behavioral Medical Center on above:Order Comment: Specimen Type: VENOUS BLOOD SPECIMENOrdering Facility: [facility] Address: [address] [place], [place] [address]Performed By: #### 37083-2 ####[facility] LABCLIA [id number] [address] STATES OF AMERICAOxyhemoglobin (BldV) [Mass fraction]70 %Ztpxot31-45KulqzuirrKettering Health Behavioral Medical Center on above:Order Comment: Specimen Type: VENOUS BLOOD SPECIMENOrdering Facility: [facility] Address: [address] [place], [place] [address]Performed By: #### 89922-4 ####[facility] LABCLIA [id number] [place] [address] [place] AMERICApH (BldV)7.36 [pH] Normal7.32-7.42[facility] on above:Order Comment: Specimen Type: VENOUS BLOOD SPECIMENOrdering Facility: [facility] Address: [address] [place], [place] [address]Performed By: #### 96966-1 ####[facility] LABCLIA [id number] [place] [address] [place] AMERICAPotassium [Moles/Vol] 4.8 mmol/LNormal3.5-5.0[facility] on above:Order Comment: Specimen Type: VENOUS BLOOD SPECIMENOrdering Facility: [facility] Address: [address] [place], [place] [address]Performed By: #### 07091-4 ####[facility] LABIA [id number] [place] [address] [place]ASodium [Moles/Vol]135 mmol/MFxd964-213GyyjdlihwKettering Health Behavioral [facility] Center on above:Order Comment: Specimen Type: VENOUS BLOOD SPECIMENOrdering Facility: [facility] Address: [address] [place], [place] [address]Performed By: #### 87518-3 ####[facility] LABIA [id number] [place] [address] [place] AMERICABase excess Calc (BldV) [Moles/Vol]0 mmol/LNormal0-2CSt. [facility] on above: Order Comment: Specimen Type: VENOUS BLOOD SPECIMENOrdering Facility: [facility] Address: [address] [place], [place] [address]Performed By: #### 30434-8 ####[facility] LABIA [id number] [place] [address] [place]ICABody xlrzouavail80.6 [degF]NormalKettering Health Behavioral Medical Center on above:Order Comment: Specimen Type: VENOUS BLOOD SPECIMENOrdering Facility: [facility] Ad dress: [address] [place], [place] [address]Performed By: #### 54330-3 ####[facility] LABIA [id number] [place] [address] [place]ICACalcium.ionized (Bld) [Mass/Vol] 1.19 mmol/LNormal1.08-1.30[facility] on above:Order Comment: Specimen Type: VENOUS BLOOD SPECIMENOrdering Facility: [facility] Address: [address] [place], [place] [address]Performed By: #### 16016-9 ####[facility] LABIA [id number] [place] [address] [place]ACalcium.ionized adjusted to pH 7.4 (BldA) [Moles/Vol]1.16 mmol/LNormal1.08-1.30[facility] on above:Order Comment: Specimen Type: VENOUS BLOOD SPECIMENOrdering Facility: [facility] Address: [address] [place], [place] [address]Performed By: #### 08355-2 ####[facility] LABIA [id number] [address] STATES OF [facility] HOSPITALCarboxyhemoglobin (BldV) [Mass fraction]1.5 %Normal0.0-2.0[facility] on above:Order Comment: Specimen Type: VENOUS BLOOD SPECIMENOrdering Facility: [facility] Address: [address] [place], [place] [address]Result Comment: Carboxyhemoglobin Reference Range for Smokers: 2.0-8.0%Performed By: #### 97481-4 ####[facility] [id number] [place] [address] [place] AMER[place]ACO2 (BldV) [Partial pressure]45 mm[Hg]Hxgnkl70-41LnvvjuxsrKettering Health Behavioral Medical Center on above:Order Comment: Specimen Type: VENOUS BLOOD SPECIMENOrdering Facility: [facility] Address: [address] [place], [place] [address]Performed By: #### 92980-9 ####[facility] LABIA [id number] [place] [address] [place] AMERICAGlucose [Mass/Vol]144 mg/bDZrzo90-296PqpjtvrqaKettering [facility] on above:Order Comment: Specimen Type: VENOUS BLOOD SPECIMENOrdering Facility: [facility] Address: [address] [place] [address] Performed By: #### 34813-4 ####[facility] LABIA [id number] [place] [address] [place] HCO3 (Bld) [Moles/Vol]25 mmol/NMpojir77-11GavqivprqKettering Health [facility] on above:Order Comment: Specimen Type: VENOUS BLOOD SPECIMENOrdering Facility: [facility] Address: [address] [place] [address] Performed By: #### 18548-0 ####[facility] LABCLIA [id number] [place] [address] [place] Hematocrit (Bld) [Volume fraction]26.7 %Low39.0-51.0[facility] Comment on above:Order Comment: Specimen Type: VENOUS BLOOD SPECIMENOrdering Facility: [facility] Address: [address] [place], [place] [address]Performed By: #### 63819-7 ####[facility] LABIA [id number] [place] [address] [place] Hemoglobin (Bld) [Mass/Vol]8.6 g/dLLow13.0-17.0[facility]Comment on above:Order Comment: Specimen Type: VENOUS BLOOD SPECIMENOrdering Facility: [facility] Address: [address] [place] [address] Performed By: #### 36609-8 ####[facility] LABIA [id number] [place] [address] [place] Lactate [Moles/Vol]1.4 mmol/LNormal0.5-2.2CSumma Health Akron CampusComment on above:Order Comment: Specimen Type: VENOUS BLOOD SPECIMENOrdering Facility: [facility] Address: [address] [place] [address] Performed By: #### 58985-9 ####[facility]IA [id number] [place] [address] [place] Methemoglobin (Bld) [Mass fraction]0.6 %Normal0.0-1.5CSumma Health [facility] Comment on above:Order Comment: Specimen Type: VENOUS BLOOD SPECIMENOrdering Facility: [facility] Address: [address] [place], [place] [address]Performed By: #### [id number] ####[facility] LABCLIA [id number] [address] [place] O2 THERAPYNC = Nasal CannulaNormalCSt. Vincent Hospital on above: Order Comment: Specimen Type: VENOUS BLOOD SPECIMENOrdering Facility: [facility] Address: [address] [place], [place] [address]Performed By: #### [id number] ####[facility] LABCLIA [id number] [place] [address] [place] AMERICAOxygen (BldV) [Partial pressure]39 mm[Hg]Dmtknu74-86HbkxqkdnjKettering Health Behavioral Medical Center on above:Order Comment: Specimen Type: VENOUS BLOOD SPECIMENOrdering Facility: [facility] Address: [address] [place], [place] [address]Performed By: #### [id number] ####[facility] LABCLIA [id number] [address] STATES OF AMERICAOxygen saturation in Venous blood70 %Cyneqh94-40ItfyozcjoKettering Health Behavioral Medical Center on above:Order Comment: Specimen Type: VENOUS BLOOD SPECIMENOrdering Facility: [facility] Address: [address] [place], [place] [address]Performed By: #### 46948-2 ####[facility] LABCLIA [id number] [place] [address] [place] AMERICAOxyhemoglobin (BldV) [Mass fraction]68 %Wbwadz07-68LxuuguwgbKettering Health Behavioral Medical Center on above:Order Comment: Specimen Type: VENOUS BLOOD SPECIMENOrdering Facility: [facility] Address: [address] [place], [place] [address]Performed By: #### 87026-8 ####[facility] LABCLIA [id number] [place] [id number] [place] OF AMERICApH (BldV)7.36 [pH] Normal7.32-7.42[facility] on above:Order Comment: Specimen Type: VENOUS BLOOD SPECIMENOrdering Facility: [facility] Address: [address] [place], [place] [address]Performed By: #### 25735-2 ####[facility] LABCLIA [id number] [place] [address] [place] AMERICAPotassium [Moles/Vol] 4.7 mmol/LNormal3.5-5.0[facility] on above:Order Comment: Specimen Type: VENOUS BLOOD SPECIMENOrdering Facility: [facility] Address: [address] [place], [place] [address]Performed By: #### 41276-4 ####[facility] LABIA [id number] [place] [address] [place] AMERICASodium [Moles/Vol]136 mmol/ZCdcfkm201-243RdntdhmqiKettering Health Behavioral Medical Center on above:Order Comment: Specimen Type: VENOUS BLOOD SPECIMENOrdering Facility: [facility] Address: [address] [place], [place] [address]Performed By: #### 51626-5 ####[facility] LABIA [id number] [place] [address] [place] AMERICABase excess Calc (BldV) [Moles/Vol]1 mmol/LNormal0-2CSt. [facility] Hospital on above: Order Comment: Specimen Type: VENOUS BLOOD SPECIMENOrdering Facility: [facility] Address: [address] [place], [place] [address]Performed By: #### 02650-4 ####[facility] LABIA [id number] [place] [address] [place] AMERICACalcium.ionized (Bld) [Mass/Vol]1.20 mmol/LNormal1.08-1.30[facility] on above: Order Comment: Specimen Type: VENOUS BLOOD SPECIMENOrdering Facility: [facility] Address: [address] [place], [place] [address]Performed By: #### 32606-5 ####[facility] LABIA [id number] [address] [address] [place] AMERICACalcium.ionized adjusted to pH 7.4 (BldA) [Moles/Vol]1.17 mmol/LNormal1.08-1.30[facility]Com[facility] on above:Order Comment: Specimen Type: VENOUS BLOOD SPECIMENOrdering Facility: [facility] Address: [address] [place], [place] [address]Performed By: #### 49710-9 ####[facility] [id number] [place] [address] [place] AMERICACarboxyhemoglobin (BldV) [Mass fraction]1.5 %Normal0.0-2.0[facility]-FairhillComment on above:Order Comment: Specimen Type: VENOUS BLOOD SPECIMENOrdering Facility: [facility] Address: [address] [place], [place] [address]Result Comment: Carboxyhemoglobin Reference Range for Smokers: 2.0-8.0%Performed By: #### 08110-4 ####[facility] LABIA [id number] [place] [address] [place] AMERICACO2 (BldV) [Partial pressure]48 mm[Hg]Jsnzvx47-18VrjzazumjKettering Health Behavioral Medical Center on above:Order Comment: Specimen Type: VENOUS BLOOD SPECIMENOrdering Facility: [facility] Address: [address] [place], [place] [address]Performed By: #### 67955-1 ####[facility] LABIA [id number] [address] [address] [place] OF AMERICAHCO3 (Bld) [Moles/Vol]26 mmol/IVbxrns04-17GxwwmqvttSelect Medical Specialty [facility] Comment on above:Order Comment: Specimen Type: VENOUS BLOOD SPECIMENOrdering Facility: [facility] Address: [address] [place], [place] [address]Performed By: #### 41397-8 ####[facility] LABIA [id number] [place] [address] [place] Hematocrit (Bld) [Volume fraction]27.0 %Low39.0-51.0[facility] Comment on above:Order Comment: Specimen Type: VENOUS BLOOD SPECIMENOrdering Facility: [facility] Address: [address] [place], [place] [address]Performed By: #### 89558-2 ####[facility] LABIA [id number] [place] [address] [place] Hemoglobin (Bld) [Mass/Vol]8.7 g/dLLow13.0-17.0[facility]-FairhillComment on above:Order Comment: Specimen Type: VENOUS BLOOD SPECIMENOrdering Facility: [facility] Address: [address] [place] [address] Performed By: #### 17528-0 ####[facility] LABIA [id number] [place] [address] [place] Lactate [Moles/Vol]2.0 mmol/LNormal0.5-2.2CSumma Health Akron CampusComment on above:Order Comment: Specimen Type: VENOUS BLOOD SPECIMENOrdering Facility: [facility] Address: [address] [place] [address] Performed By: #### 94732-9 ####[facility] LABIA [id number] [place] [address] [place] Methemoglobin (Bld) [Mass fraction]0.4 %Normal0.0-1.5CSumma Health Akron Campus Comment on above:Order Comment: Specimen Type: VENOUS BLOOD SPECIMENOrdering Facility: [facility] Address: [address] [place], [place] [address]Performed By: #### 81442-8 ####[facility] LABIA [id number] [place] [address] [place] Oxygen (BldV) [Partial pressure]33 mm[Hg]Rep01-58LkcesquaaSelect Medical Specialty Hospital - [facility] Comment on above:Order Comment: Specimen Type: VENOUS BLOOD SPECIMENOrdering Facility: [facility] Address: [address] [place], [place] [address]Performed By: #### 37443-4 ####[facility] LABCLIA [id number] [place] [address] [place] Oxygen saturation in Venous blood60 %Terznu14-40QhmgfdjexSelect Medical Specialty [facility] Comment on above:Order Comment: Specimen Type: VENOUS BLOOD SPECIMENOrdering Facility: [facility] Address: [address] [place], [place] [address]Performed By: #### 94457-3 ####[facility] LABCLIA [id number] [address] [place] Oxyhemoglobin (BldV) [Mass fraction]59 %Fyt02-26LepsenylwSelect Medical Specialty Hospital [facility] Comment on above:Order Comment: Specimen Type: VENOUS BLOOD SPECIMENOrdering Facility: [facility] Address: [address] [place], [place] [address]Performed By: #### 66366-1 ####[facility] LABIA [id number] [place] [address] [place] pH (BldV)7.35 [pH]Normal7.32-7.42[facility]-FairhillComment on above: Order Comment: Specimen Type: VENOUS BLOOD SPECIMENOrdering Facility: [facility] Address: [address] [place], [place] [address]Performed By: #### 48188-3 ####[facility] LABCLIA [id number] [place] [address] [place] AMERICAPotassium [Moles/Vol] 4.9 mmol/LNormal3.5-5.0[facility]-FairhillComment on above:Order Comment: Specimen Type: VENOUS BLOOD SPECIMENOrdering Facility: [facility] Address: [address] [place], [place] [address]Performed By: #### 99865-7 ####[facility] LABCLIA [id number] [place] [address] [place] AMERICABase excess Calc (BldV) [Moles/Vol]1 mmol/LNormal0-2CSt. [facility] Hospital on above: Order Comment: Specimen Type: VENOUS BLOOD SPECIMENOrdering Facility: [facility] Address: [address] [place], [place] [address]Performed By: #### 11373-5 ####[facility] LABCLIA [id number] [place] [address] [place] AMERICACalcium.ionized (Bld) [Mass/Vol]1.22 mmol/LNormal1.08-1.30[facility] on above: Order Comment: Specimen Type: VENOUS BLOOD SPECIMENOrdering Facility: [facility] Address: [address] [place], [place] [address]Performed By: #### 50372-3 ####[facility] LABCLIA [id number] [address] OF AMERICACalcium.ionized adjusted to pH 7.4 (BldA) [Moles/Vol]1.18 mmol/LNormal1.08-1.30[facility] on above:Order Comment: Specimen Type: VENOUS BLOOD SPECIMENOrdering Facility: [facility] Address: [address] [place], [place] [address]Performed By: #### 14424-4 ####[facility] LABIA [id number] [place] [address] [place] AMERICACarboxyhemoglobin (BldV) [Mass fraction]0.9 %Normal0.0-2.0[facility] on above:Order Comment: Specimen Type: VENOUS BLOOD SPECIMENOrdering Facility: [facility] Address: [address] [place], [place] [address]Result Comment: Carboxyhemoglobin Reference Range for Smokers: 2.0-8.0%Performed By: #### 96066-3 ####[facility] LABIA [id number] [place] [address] [place] AMERICACO2 (BldV) [Partial pressure]52 mm[Hg]Uoaqls32-63HtwyxpajgKettering Health Behavioral Medical Center on above:Order Comment: Specimen Type: VENOUS BLOOD SPECIMENOrdering Facility: [facility] Address: [address] [place], [place] [address]Performed By: #### 45245-4 ####[facility] LABCLIA [id number] [place] [address] [place] AMERICAGlucose [Mass/Vol]119 mg/sJXusm98-202RkgkxvgzoKettering [facility] on above:Order Comment: Specimen Type: VENOUS BLOOD SPECIMENOrdering Facility: [facility] Address: [address] [place] [address] Performed By: #### 33978-8 ####[facility] LABCLIA [id number] [place] [address] [place] HCO3 (Bld) [Moles/Vol]27 mmol/VYoewgg71-46AuvsgpmzfSuburban Community Hospital & Brentwood Hospitalment on above:Order Comment: Specimen Type: VENOUS BLOOD SPECIMENOrdering Facility: [facility] Address: [address] [place] [address] Performed By: #### 40208-0 ####[facility] LABCLIA [id number] [place] [address] [place] Lactate [Moles/Vol]2.4 mmol/LHigh0.5-2.2CSt. [facility] Hospital on above:Order Comment: Specimen Type: VENOUS BLOOD SPECIMENOrdering Facility: [facility] Address: [address] [place] [address] Performed By: #### 60188-1 ####[facility] LABCLIA [id number] [place] [address] [place] Methemoglobin (Bld) [Mass fraction]1.0 %Normal0.0-1.5CSumma Health [facility] Campus Comment on above:Order Comment: Specimen Type: VENOUS BLOOD SPECIMENOrdering Facility: [facility] Address: [address] [place], [place] [id number] By: #### 07004-2 ####[facility] LABCLIA [id number] [place] [address] [place] Oxygen (BldV) [Partial pressure]37 mm[Hg]Kwaker29-94OpovtdhkpSelect Medical Specialty Hospital [facility] Comment on above:Order Comment: Specimen Type: VENOUS BLOOD SPECIMENOrdering Facility: [facility] Address: [address] [place], [place] [address]Performed By: #### 03020-9 ####[facility] LABCLIA [id number] [address] [place] Oxygen saturation in Venous blood66 %Bhkhij43-82PtnoishhlSelect Medical Specialty Hospital - [facility] Comment on above:Order Comment: Specimen Type: VENOUS BLOOD SPECIMENOrdering Facility: [facility] Address: [address] [place], [place] [address]Performed By: #### 63239-5 ####[facility] LABCLIA [id number] [address] [place] Oxyhemoglobin (BldV) [Mass fraction]65 %Sjyenq54-54LwebbcswzSelect Medical Specialty [facility] Comment on above:Order Comment: Specimen Type: VENOUS BLOOD SPECIMENOrdering Facility: [facility] Address: [address] [place], [place] [address]Performed By: #### 45634-4 ####[facility] LABCLIA [id number] [place] [id number] [place] pH (BldV)7.33 [pH]Normal7.32-7.42[facility]-FairhillComment on above: Order Comment: Specimen Type: VENOUS BLOOD SPECIMENOrdering Facility: [facility] Address: [address] [place], [place] [address]Performed By: #### 38399-2 ####[facility] LABCLIA [id number] [place] [id number] [place] AMERICAPotassium [Moles/Vol] 4.8 mmol/LNormal3.5-5.0[facility] on above:Order Comment: Specimen Type: VENOUS BLOOD SPECIMENOrdering Facility: [facility] Address: [address] [place], [place] [address]Performed By: #### 59882-1 ####[facility] LABIA [id number] [place] [address] [place] AMERICASodium [Moles/Vol]137 mmol/XKafurw004-131PfignjoamKettering Health [facility] Center on above:Order Comment: Specimen Type: VENOUS BLOOD SPECIMENOrdering Facility: [facility] Address: [address] [place], [place] [address]Performed By: #### 14423-2 ####[facility] [id number] [place] [address] [place] AMERICABase excess Calc (BldV) [Moles/Vol]0 mmol/LNormal0-2CSt. [facility] Hospital on above: Order Comment: Specimen Type: VENOUS BLOOD SPECIMENOrdering Facility: [facility] Address: [address] [place], [place] [address]Performed By: #### 03402-5 ####[facility] LABIA [id number] [place] [address] [place] AMERICACalcium.ionized (Bld) [Mass/Vol]1.22 mmol/LNormal1.08-1.30[facility] on above: Order Comment: Specimen Type: VENOUS BLOOD SPECIMENOrdering Facility: [facility] Address: [address] [place], [place] [address]Performed By: #### 10490-0 ####[facility] LABIA [id number] [place] [address] [place]ACalcium.ionized adjusted to pH 7.4 (BldA) [Moles/Vol]1.16 mmol/LNormal1.08-1.30[facility] on above:Order Comment: Specimen Type: VENOUS BLOOD SPECIMENOrdering Facility: [facility] Address: [address] [place], [place] [address]Performed By: #### 89750-8 ####[facility] LABIA [id number] [address] STATES OF [facility] COUNTY HOSPITALCarboxyhemoglobin (BldV) [Mass fraction]1.5 %Normal0.0-2.0[facility] on above:Order Comment: Specimen Type: VENOUS BLOOD SPECIMENOrdering Facility: [facility] Address: [address] [place], [place] [address]Result Comment: Carboxyhemoglobin Reference Range for Smokers: 2.0-8.0%Performed By: #### 97944-6 ####[facility] LABIA [id number] [place] [address] [place] AMERICACO2 (BldV) [Partial pressure]55 mm[Hg]Rklpkv15-85JtwkrizfjKettering Health Behavioral Medical Center on above:Order Comment: Specimen Type: VENOUS BLOOD SPECIMENOrdering Facility: [facility] Address: [address] [place], [place] [address]Performed By: #### 36603-1 ####[facility] LABIA [id number] [place] [address] [place] AMERICAGlucose [Mass/Vol]131 mg/eOThag04-230YsqyfwepdKettering Health Behavioral Medical Center on above:Order Comment: Specimen Type: VENOUS BLOOD SPECIMENOrdering Facility: [facility] Address: [address] [place] [address] Performed By: #### 23276-1 ####[facility] LABIA [id number] [place] [address] [place] HCO3 (Bld) [Moles/Vol]27 mmol/XCkwdlf08-70HfirfhyppKettering Health Behavioral [facility] Center on above:Order Comment: Specimen Type: VENOUS BLOOD SPECIMENOrdering Facility: [facility] Address: [address] [place] [address] Performed By: #### 07623-2 ####[facility] LABIA [id number] [place] [address] [place] Hematocrit (Bld) [Volume fraction]27.0 %Low39.0-51.0[facility] Comment on above:Order Comment: Specimen Type: VENOUS BLOOD SPECIMENOrdering Facility: [facility] Address: [address] [place], [place] [address]Performed By: #### 14351-3 ####[facility] LABIA [id number] [place] [address] [place] Hemoglobin (Bld) [Mass/Vol]8.7 g/dLLow13.0-17.0[facility]-FairhillComment on above:Order Comment: Specimen Type: VENOUS BLOOD SPECIMENOrdering Facility: [facility] Address: [address] [place] [address] Performed By: #### 94609-1 ####[facility] [id number] [place] [address] [place] Lactate [Moles/Vol]2.5 mmol/LHigh0.5-2.2ClevelAtrium HealthComment on above:Order Comment: Specimen Type: VENOUS BLOOD SPECIMENOrdering Facility: [facility] Address: [address] [place] [address] Performed By: #### 39903-1 ####[facility] [id number] [place] [address] [place] Methemoglobin (Bld) [Mass fraction]0.5 %Normal0.0-1.5CSumma Health [facility] Comment on above:Order Comment: Specimen Type: VENOUS BLOOD SPECIMENOrdering Facility: [facility] Address: [address] [place], [place] [address]Performed By: #### 83117-5 ####[facility] [id number] [place] [id number] [place] Oxygen (BldV) [Partial pressure]41 mm[Hg]Ltjlnw53-09DtjjcibtiSelect Medical Specialty [facility] Comment on above:Order Comment: Specimen Type: VENOUS BLOOD SPECIMENOrdering Facility: [facility] Address: [address] [place], [place] [address]Performed By: #### 63786-9 ####[facility] LABCLIA [id number] [place] [address] [place] Oxygen saturation in Venous blood69 %Athpyu31-27HzbqmugtfSelect Medical Specialty [facility] Comment on above:Order Comment: Specimen Type: VENOUS BLOOD SPECIMENOrdering Facility: [facility] Address: [address] [place], [place] [address]Performed By: #### 42753-7 ####[facility] LABCLIA [id number] [place] [address] [place] Oxyhemoglobin (BldV) [Mass fraction]68 %Tbrofx03-07LfiobfakrSelect Medical Specialty [facility] Comment on above:Order Comment: Specimen Type: VENOUS BLOOD SPECIMENOrdering Facility: [facility] Address: [address] [place], [place] [address]Performed By: #### 62990-1 ####[facility] LABCLIA [id number] [place] [address] [place] pH (BldV)7.31 [pH]Low7.32-7.42[facility]-FairhillComment on above:Order Comment: Specimen Type: VENOUS BLOOD SPECIMENOrdering Facility: [facility] Address: [address] [place], [place] [address]Performed By: #### 35747-9 ####[facility] LABCLIA [id number] [place] [address] [place]ASodium [Moles/Vol]137 mmol/JMpxorb397-066RajhnnyicSelect Medical Specialty Hospital - Cleveland-FairhillComment on above:Order Comment: Specimen Type: VENOUS BLOOD SPECIMENOrdering Facility: [facility] Address: [address] [place], [place] [address]Performed By: #### 45175-3 ####[facility] LABCLIA [id number] [place] [address] [place] AMERICABASE DEFICIT, VENOUS-1 mmol/VVriueq-8-4KfokdtjdwKettering Health Behavioral [facility] Center on above:Order Comment: Specimen Type: VENOUS BLOOD SPECIMENOrdering Facility: [facility] Address: [address] [place], [place] [address]Performed By: #### 43332-8 ####[facility] LABIA [id number] [place] [address] [place] AMERICACalcium.ionized (Bld) [Mass/Vol]1.23 mmol/LNormal1.08-1.30[facility] on above: Order Comment: Specimen Type: VENOUS BLOOD SPECIMENOrdering Facility: [facility] Address: [address] [place], [place] [address]Performed By: #### 83905-8 ####[facility] [id number] [address] STATES OF AMERICACalcium.ionized adjusted to pH 7.4 (BldA) [Moles/Vol]1.16 mmol/LNormal1.08-1.30[facility] on above:Order Comment: Specimen Type: VENOUS BLOOD SPECIMENOrdering Facility: [facility] Address: [address] [place], [place] [address]Performed By: #### 45112-5 ####[facility] LABIA [id number] [place] [address] [place]ICACarboxyhemoglobin (BldV) [Mass fraction]1.7 %Normal0.0-2.0[facility] on above:Order Comment: Specimen Type: VENOUS BLOOD SPECIMENOrdering Facility: [facility] Address: [address] [place], [place] [address]Result Comment: Carboxyhemoglobin Reference Range for Smokers: 2.0-8.0%Performed By: #### 97896-8 ####[facility] LABIA [id number] [place] [address] [place] AMER[place]ACO2 (BldV) [Partial pressure]52 mm[Hg]Dwarnu48-89InydorrivSuburban Community Hospital & Brentwood Hospitalment on above:Order Comment: Specimen Type: VENOUS BLOOD SPECIMENOrdering Facility: [facility] Address: [address] [place], [place] [address]Performed By: #### 77377-8 ####[facility] LABCLIA [id number] [place] [address] [place] AMERICAGlucose [Mass/Vol]178 mg/sHOchq59-284NozbgikbkSelect Medical Specialty Hospital [facility]-FairhillComselect [facility] on above:Order Comment: Specimen Type: VENOUS BLOOD SPECIMENOrdering Facility: [facility] Address: [address] [place] [address] Performed By: #### 44737-4 ####[facility] LABCL[facility] [id number] [place] [address] [place] HCO3 (Bld) [Moles/Vol]25 mmol/KPliodf03-46IsgeykxeqKettering Health Behavioral Medical Center on above:Order Comment: Specimen Type: VENOUS BLOOD SPECIMENOrdering Facility: [facility] Address: [address] [place] [address] Performed By: #### 83039-5 ####[facility] LABCL[facility] [id number] [place] [address] [place] Hematocrit (Bld) [Volume fraction]26.6 %Low39.0-51.0[facility] Comment on above:Order Comment: Specimen Type: VENOUS BLOOD SPECIMENOrdering Facility: [facility] Address: [address] [place], [place] [address]Performed By: #### 97004-0 ####[facility] LABCL[facility] [id number] [place] [address] [place] Hemoglobin (Bld) [Mass/Vol]8.6 g/dLLow13.0-17.0[facility] on above:Order Comment: Specimen Type: VENOUS BLOOD SPECIMENOrdering Facility: [facility] Address: [address] [place] [address] Performed By: #### [id number] ####[facility] LABIA [id number] [place] [address] [place] Lactate [Moles/Vol]3.8 mmol/LHigh0.5-2.2CSumma Health Akron CampusComment on above:Order Comment: Specimen Type: VENOUS BLOOD SPECIMENOrdering Facility: [facility] Address: [address] [place] [address] Performed By: #### [id number] ####[facility] LABIA [id number] [place] [address] [place] Methemoglobin (Bld) [Mass fraction]1.0 %Normal0.0-1.5CSumma Health [facility] Comment on above:Order Comment: Specimen Type: VENOUS BLOOD SPECIMENOrdering Facility: [facility] Address: [address] [place], [place] [address]Performed By: #### [id number] ####[facility] [id number] [place] [address] [place] Oxygen (BldV) [Partial pressure]41 mm[Hg][id number] Medical [facility]ty [facility] Comment on above:Order Comment: Specimen Type: VENOUS BLOOD SPECIMENOrdering Facility: [facility] Address: [address] [place] [place], [place] [address]Performed By: #### 81973-3 ####[facility] [id number] [place] [address] [place] Oxygen saturation in Venous blood69 %Txaiuh21-27XjttbpfpoSelect Medical [facility] Comment on above:Order Comment: Specimen Type: VENOUS BLOOD SPECIMENOrdering Facility: [facility] Address: [address] [place], [place] [address]Performed By: #### 20350-5 ####[facility] [id number] [place] [id number] [place] Oxyhemoglobin (BldV) [Mass fraction]67 %Iwqpih97-81DrqhufnqcSelect [facility]ty [facility] Comment on above:Order Comment: Specimen Type: VENOUS BLOOD SPECIMENOrdering Facility: [facility] Address: [address] [place], [place] [address]Performed By: #### 12648-7 ####[facility] [id number] [place] [address] [place] pH (BldV)7.30 [pH]Low7.32-7.42[facility] on above:Order Comment: Specimen Type: VENOUS BLOOD SPECIMENOrdering Facility: [facility] Address: [address] [place], [place] [address]Performed By: #### 70316-9 ####[facility] [id number] [place] [address] [place] AMERICAPotassium [Moles/Vol] 4.7 mmol/LNormal3.5-5.0[facility]ment on above:Order Comment: Specimen Type: VENOUS BLOOD SPECIMENOrdering Facility: [facility] Address: [address] [place], [place] [address]Performed By: #### 68092-0 ####[facility] [id number] [place] [address] [place] AMERICABASE DEFICIT, VENOUS-2 mmol/RPirctq-6-5VoxgfprpeKettering Health Behavioral Medical Center on above:Order Comment: Specimen Type: VENOUS BLOOD SPECIMENOrdering Facility: [facility] Address: [address] [place], [place] [address]Performed By: #### 08813-2 ####[facility] [id number] [address] STATES OF [facility] COUNTY HOSPITALCalcium.ionized (Bld) [Mass/Vol]1.21 mmol/LNormal1.08-1.30[facility] on above: Order Comment: Specimen Type: VENOUS BLOOD SPECIMENOrdering Facility: [facility] Address: [address] [place], [place] [address]Performed By: #### 87485-2 ####[facility] [id number] [place] [address] [place] AMERICACalcium.ionized adjusted to pH 7.4 (BldA) [Moles/Vol]1.15 mmol/LNormal1.08-1.30[facility] on above:Order Comment: Specimen Type: VENOUS BLOOD SPECIMENOrdering Facility: [facility] Address: [address] [place], [place] [address]Performed By: #### 07316-6 ####[facility] [id number] [place] [address] [place] AMERICACarboxyhemoglobin (BldV) [Mass fraction]1.0 %Normal0.0-2.0[facility] on above:Order Comment: Specimen Type: VENOUS BLOOD SPECIMENOrdering Facility: [facility] Address: [address] [place], [place] [address]Result Comment: Carboxyhemoglobin Reference Range for Smokers: 2.0-8.0%Performed By: #### 85600-0 ####[facility] [id number] [place] [address] [place] AMERICACO2 (BldV) [Partial pressure]50 mm[Hg]Dmqkcd58-97GffmhnzyqKettering Health Behavioral Medical Center on above:Order Comment: Specimen Type: VENOUS BLOOD SPECIMENOrdering Facility: [facility] Address: [address] [place], [place] [address]Performed By: #### 43102-6 ####[facility] [id number] [place] [address] [place] AMERICAGlucose [Mass/Vol]169 mg/nJOirf73-248CtwovecwsKet[facility] on above:Order Comment: Specimen Type: VENOUS BLOOD SPECIMENOrdering Facility: [facility] Address: [address] [place] [address] Performed By: #### 89227-8 ####[facility] [id number] [place] [address] [place] HCO3 (Bld) [Moles/Vol]24 mmol/GPztruz87-71WvrvgvqbiKettering Health Behavioral Medical Center on above:Order Comment: Specimen Type: VENOUS BLOOD SPECIMENOrdering Facility: [facility] Address: [address] [place] [address] Performed By: #### 29241-9 ####[facility] [id number] [place] [address] [place] Hematocrit (Bld) [Volume fraction]28.3 %Low39.0-51.0[facility] Comment on above:Order Comment: Specimen Type: VENOUS BLOOD SPECIMENOrdering Facility: [facility] Address: [address] [place], [place] [address]Performed By: #### 22406-1 ####[facility] [id number] [place] [address] [place] Hemoglobin (Bld) [Mass/Vol]9.1 g/dLLow13.0-17.0[facility] on above:Order Comment: Specimen Type: VENOUS BLOOD SPECIMENOrdering Facility: [facility] Address: [address] [place] [address] Performed By: #### 76087-8 ####[facility] [id number] [place] [address] [place] Lactate [Moles/Vol]4.8 mmol/LHigh0.5-2.2CSumma Health Akron CampusComselect specialty hospital-[facility] on above:Order Comment: Specimen Type: VENOUS BLOOD SPECIMENOrdering Facility: [facility] Address: [address] [place] [address] Performed By: #### 28773-4 ####[facility] [id number] [place] [address] [place] Methemoglobin (Bld) [Mass fraction]0.9 %Normal0.0-1.5CSumma Health [facility] Campus Comment on above:Order Comment: Specimen Type: VENOUS BLOOD SPECIMENOrdering Facility: [facility] Address: [address] [place], [place] [address]Performed By: #### 35031-3 ####[facility] [id number] [address] [address] [place] Oxygen (BldV) [Partial pressure]40 mm[Hg]Dmsezg15-50LcmtusmhdSelect Medical Specialty [facility] Comment on above:Order Comment: Specimen Type: VENOUS BLOOD SPECIMENOrdering Facility: [facility] Address: [address] [place], [place] [address]Performed By: #### 02701-9 ####[facility] [id number] [place] [address] [place] Oxygen saturation in Venous blood69 %Vseklr00-81XajvsajojSelect Medical [facility]ty [facility] Comment on above:Order Comment: Specimen Type: VENOUS BLOOD SPECIMENOrdering Facility: [facility] Address: [address] [place], [place] [address]Performed By: #### 91769-1 ####[facility] [id number] [place] [address] [place] Oxyhemoglobin (BldV) [Mass fraction]68 %Kaauwv52-39LqhkbkdmzSelect [facility] Comment on above:Order Comment: Specimen Type: VENOUS BLOOD SPECIMENOrdering Facility: [facility] Address: [address] [place], [place] [address]Performed By: #### 04660-9 ####[facility] [id number] [place] [id number] [place] pH (BldV)7.30 [pH]Low7.32-7.42[facility]hillComment on above:Order Comment: Specimen Type: VENOUS BLOOD SPECIMENOrdering Facility: [facility] Address: [address] [place], [place] [address]Performed By: #### 05009-8 ####[facility] [id number] [place] [address] [place] AMERICASodium [Moles/Vol]139 mmol/PWgwuwk863-891UcwcmqwykKettering [facility] on above:Order Comment: Specimen Type: VENOUS BLOOD SPECIMENOrdering Facility: [facility] Address: [address] [place], [place] [address]Performed By: #### 36102-5 ####[facility] [id number] [place] [address] [place] AMERICABASE DEFICIT, VENOUS-2 mmol/OLcnhyt-6-6TwjxmeklmKettering Health [facility]al [facility] on above:Order Comment: Specimen Type: VENOUS BLOOD SPECIMENOrdering Facility: [facility] Address: [address] [place] [address]Performed By: #### 55541-5 ####[facility] [id number] [place] [address] [place]ACalcium.ionized (Bld) [Mass/Vol]1.24 mmol/LNormal1.08-1.30[facility] on above: Order Comment: Specimen Type: VENOUS BLOOD SPECIMENOrdering Facility: [facility] Address: [address] [place], [place] [address]Performed By: #### 79106-4 ####[facility] [id number] [place] [address] [place]ACalcium.ionized adjusted to pH 7.4 (BldA) [Moles/Vol]1.19 mmol/LNormal1.08-1.30[facility] on above:Order Comment: Specimen Type: VENOUS BLOOD SPECIMENOrdering Facility: [facility] Address: [address] [place] [address]Performed By: #### 58510-7 ####[facility] [id number] [place] [address] [place]ACarboxyhemoglobin (BldV) [Mass fraction]1.2 %Normal0.0-2.0[facility] on above:Order Comment: Specimen Type: VENOUS BLOOD SPECIMENOrdering Facility: [facility] Address: [address] [place], [place] [address]Result Comment: Carboxyhemoglobin Reference Range for Smokers: 2.0-8.0%Performed By: #### 19316-3 ####[facility] [id number] [place] [address] [place]ACO2 (BldV) [Partial pressure]48 mm[Hg]Lzmclr03-64BzacdusywSelect Medical Specialty Hospital - [facility]-FairhillComment on above:Order Comment: Specimen Type: VENOUS BLOOD SPECIMENOrdering Facility: [facility] Address: [address] [place], [place] [address]Performed By: #### 43265-3 ####[facility] [id number] [place] [address] [place] AMERICAGlucose [Mass/Vol]168 mg/cHIjor34-918FxoodwydhSelect Medical Specialty Hospital - [facility]-FairhillComment on above:Order Comment: Specimen Type: VENOUS BLOOD SPECIMENOrdering Facility: [facility] Address: [address] [place] [address] Performed By: #### 47522-5 ####[facility] [id number] [place] [address] [place] HCO3 (Bld) [Moles/Vol]24 mmol/MGmblob27-70TbilogelxSelect Medical Specialty Hospital [facility]-FairhillComselect specialty hospital-[facility] on above:Order Comment: Specimen Type: VENOUS BLOOD SPECIMENOrdering Facility: [facility] Address: [address] [place] [address] Performed By: #### 70490-3 ####[facility] [id number] [place] [address] [place] Hematocrit (Bld) [Volume fraction]30.2 %Low39.0-51.0[facility] Comment on above:Order Comment: Specimen Type: VENOUS BLOOD SPECIMENOrdering Facility: [facility] Address: [address] [place], [place] [address]Performed By: #### 08825-8 ####[facility] [id number] [place] [address] [place] Lactate [Moles/Vol]4.7 mmol/LHigh0.5-2.2CSumma Health Akron CampusComment on above:Order Comment: Specimen Type: VENOUS BLOOD SPECIMENOrdering Facility: [facility] Address: [address] [place] [address] Performed By: #### 30740-8 ####[facility] [id number] [place] [address] [place] Methemoglobin (Bld) [Mass fraction]0.7 %Normal0.0-1.5ClevelAtrium Health Comment on above:Order Comment: Specimen Type: VENOUS BLOOD SPECIMENOrdering Facility: [facility] Address: [address] [place], [place] [address]Performed By: #### 41530-2 ####[facility] [id number] [place] [address] [place] Oxygen (BldV) [Partial pressure]43 mm[Hg]Rftedq51-85AyjhslrijSelect Medical Specialty [facility] Comment on above:Order Comment: Specimen Type: VENOUS BLOOD SPECIMENOrdering Facility: [facility] Address: [address] [place], [place] [address]Performed By: #### 49234-0 ####[facility] [id number] [place] [address] [place] Oxygen saturation in Venous blood74 %Vnksgw63-36EgxpxklukSelect Medical [facility]ty [facility] Comment on above:Order Comment: Specimen Type: VENOUS BLOOD SPECIMENOrdering Facility: [facility] Address: [address] [place], [place] [address]Performed By: #### 02069-0 ####[facility] [id number] [place] [address] [place] Oxyhemoglobin (BldV) [Mass fraction]72 %Rymubi80-37VxkrnabisSelect Medical Specialty [facility] Comment on above:Order Comment: Specimen Type: VENOUS BLOOD SPECIMENOrdering Facility: [facility] Address: [address] [place], [place] [address]Performed By: #### 66653-0 ####[facility] [id number] [place] [address] [place] pH (BldV)7.32 [pH]Normal7.32-7.42[facility]hillComselect specialty hospital[facility] on above: Order Comment: Specimen Type: VENOUS BLOOD SPECIMENOrdering Facility: [facility] Address: [address] [place], [place] [address]Performed By: #### 92751-9 ####[facility] [id number] [place] [address] [place]ICAPotassium [Moles/Vol] 4.9 mmol/LNormal3.5-5.0[facility] Hospitalment on above:Order Comment: Specimen Type: VENOUS BLOOD SPECIMENOrdering Facility: [facility] Address: [address] [place], [place] [address]Performed By: #### 65698-5 ####[facility] [id number] [place] [address] [place] [place] HOSPITALSodium [Moles/Vol]140 mmol/VVkaugf489-728JsvoqvkvhKettering Health Behavioral Medical Center on above:Order Comment: Specimen Type: VENOUS BLOOD SPECIMENOrdering Facility: [facility] Address: [address] [place], [place] [address]Performed By: #### 42120-4 ####[facility] [id number] [place] [address] [place] AMERICABASE DEFICIT, VENOUS-3 mmol/ZPnn-2-6HikrstzvtKettering Health Behavioral Medical Center on above:Order Comment: Specimen Type: VENOUS BLOOD SPECIMENOrdering Facility: [facility] Ad dress: [address] [place], [place] [address]Performed By: #### 70780-7 ####[facility] [id number] [place] [address] [place]ACalcium.ionized adjusted to pH 7.4 (BldA) [Moles/Vol]1.18 mmol/LNormal1.08-1.30[facility] Comment on above:Order Comment: Specimen Type: VENOUS BLOOD SPECIMENOrdering Facility: [facility] Address: [address] [place], [place] [address]Performed By: #### 45120-4 ####[facility] [id number] [place] [address] [place] Carboxyhemoglobin (BldV) [Mass fraction]1.3 %Normal0.0-2.0[facility]hillComment on above:Order Comment: Specimen Type: VENOUS BLOOD SPECIMENOrdering Facility: [facility] Address: [address] [place], [place] [address]Result Comment: Carboxyhemoglobin Reference Range for Smokers: 2.0-8.0%Performed By: #### 18943-9 ####[facility] [id number] [place] [address] [place]ACO2 (BldV) [Partial pressure]47 mm[Hg]Vzikii47-61OrvyhauuhSelect Medical Specialty Hospital [facility]hillComment on above:Order Comment: Specimen Type: VENOUS BLOOD SPECIMENOrdering Facility: [facility] Address: [address] [place], [place] [address]Performed By: #### 68978-2 ####[facility] [id number] [place] [address] [place] AMERICAGlucose [Mass/Vol]121 mg/kBKpmx49-406BjywclaigSelect Medical [facility]hillComment on above:Order Comment: Specimen Type: VENOUS BLOOD SPECIMENOrdering Facility: [facility] Address: [address] [place] [address] Performed By: #### 75641-3 ####[facility] [id number] [place] [address] [place] HCO3 (Bld) [Moles/Vol]23 mmol/TQzj48-89BqhlvqralSelect Medical Specialty Hospital - [facility]-FairhillComment on above:Order Comment: Specimen Type: VENOUS BLOOD SPECIMENOrdering Facility: [facility] Address: [address] [place] [address] Performed By: #### 15300-6 ####[facility] [id number] [place] [address] [place] Hematocrit (Bld) [Volume fraction]30.9 %Low39.0-51.0[facility] Comment on above:Order Comment: Specimen Type: VENOUS BLOOD SPECIMENOrdering Facility: [facility] Address: [address] [place], [place] [address]Performed By: #### 22261-9 ####[facility] [id number] [place] [address] [place] Hemoglobin (Bld) [Mass/Vol]10.0 g/dLLow13.0-17.0[facility] Comment on above:Order Comment: Specimen Type: VENOUS BLOOD SPECIMENOrdering Facility: [facility] Address: [address] [place], [place] [address]Performed By: #### 20867-3 ####[facility] [id number] [place] [address] [place] Lactate [Moles/Vol]7.0 mmol/LHigh0.5-2.2CSumma Health Akron CampusComment on above:Order Comment: Specimen Type: VENOUS BLOOD SPECIMENOrdering Facility: [facility] Address: [address] [place] [address] Performed By: #### 64250-6 ####[facility] [id number] [place] [address] [place] Methemoglobin (Bld) [Mass fraction]1.5 %Normal0.0-1.5CSumma Health [facility] Campus Comment on above:Order Comment: Specimen Type: VENOUS BLOOD SPECIMENOrdering Facility: [facility] Address: [address] [place], [place] [address]Performed By: #### 56071-6 ####[facility] [id number] [place] [address] [place] Oxygen (BldV) [Partial pressure]41 mm[Hg]Luwrml89-91CbpnsraijSelect Medical [facility] Comment on above:Order Comment: Specimen Type: VENOUS BLOOD SPECIMENOrdering Facility: [facility] Address: [address] [place], [place] [address]Performed By: #### 86069-8 ####[facility] [id number] [place] [address] [place] Oxygen saturation in Venous blood70 %Zrfgeg94-85QxjzbucczSelect Medical [facility] Comment on above:Order Comment: Specimen Type: VENOUS BLOOD SPECIMENOrdering Facility: [facility] Address: [address] [place], [place] [address]Performed By: #### 11657-8 ####[facility] [id number] [place] [address] [place] Oxyhemoglobin (BldV) [Mass fraction]68 %Hmqgxz61-93WxzcmebamSelect Medical Specialty [facility] Comment on above:Order Comment: Specimen Type: VENOUS BLOOD SPECIMENOrdering Facility: [facility] Address: [address] [place], [place] [address]Performed By: #### 54702-3 ####[facility] [id number] [place] [id number] [place] pH (BldV)7.31 [pH]Low7.32-7.42[facility]-FairhillComment on above:Order Comment: Specimen Type: VENOUS BLOOD SPECIMENOrdering Facility: [facility] Address: [address] [place], [place] [address]Performed By: #### 24962-2 ####[facility] [id number] [place] [address] [place] AMERICAPotassium [Moles/Vol] 4.3 mmol/LNormal3.5-5.0[facility] on above:Order Comment: Specimen Type: VENOUS BLOOD SPECIMENOrdering Facility: [facility] Address: [address] [place], [place] [address]Performed By: #### 69738-7 ####[facility] [id number] [place] [address] [place] AMERICABASE DEFICIT, VENOUS-5 mmol/XYhb-1-1UsjyxhmglKettering Health Behavioral [facility] Center on above:Order Comment: Specimen Type: VENOUS BLOOD SPECIMENOrdering Facility: [facility] Ad dress: [address] [place], [place] [address]Performed By: #### 31678-0 ####[facility] [id number] [place] [address] [place] AMERICACalcium.ionized (Bld) [Mass/Vol] 1.26 mmol/LNormal1.08-1.30[facility] on above:Order Comment: Specimen Type: VENOUS BLOOD SPECIMENOrdering Facility: [facility] Address: [address] [place], [place] [address]Performed By: #### 29927-1 ####[facility] [id number] [address] OF [facility] COUNTY HOSPITALCalcium.ionized adjusted to pH 7.4 (BldA) [Moles/Vol]1.16 mmol/LNormal1.08-1.30[facility] on above:Order Comment: Specimen Type: VENOUS BLOOD SPECIMENOrdering Facility: [facility] Address: [address] [place], [place] [address]Performed By: #### 90946-9 ####[facility] [id number] [place] [address] [place] AMERICACarboxyhemoglobin (BldV) [Mass fraction]1.3 %Normal0.0-2.0[facility]Comselect [facility] on above:Order Comment: Specimen Type: VENOUS BLOOD SPECIMENOrdering Facility: [facility] Address: [address] [place], [place] [address]Result Comment: Carboxyhemoglobin Reference Range for Smokers: 2.0-8.0%Performed By: #### 14111-1 ####[facility] [id number] [place] [address] [place]ACO2 (BldV) [Partial pressure]50 mm[Hg]Mieqew04-50KfmkrjeegSelect Medical Specialty Hospital - Cleveland-FairhillComment on above:Order Comment: Specimen Type: VENOUS BLOOD SPECIMENOrdering Facility: [facility] Address: [address] [place], [place] [address]Performed By: #### 06401-9 ####[facility] [id number] [place] [address] [place] AMERICAGlucose [Mass/Vol]123 mg/sPFnjb05-750TdjwmbuofSelect Medical Specialty Hospital - [facility]-FairhillComment on above:Order Comment: Specimen Type: VENOUS BLOOD SPECIMENOrdering Facility: [facility] Address: [address] [place] [address] Performed By: #### 21068-4 ####[facility] [id number] [place] [address] [place] HCO3 (Bld) [Moles/Vol]22 mmol/PVpt71-48XvuodldtaKettering Health Behavioral Medical Center on above:Order Comment: Specimen Type: VENOUS BLOOD SPECIMENOrdering Facility: [facility] Address: [address] [place] [address] Performed By: #### 71736-3 ####[facility] [id number] [place] [address] [place] Hematocrit (Bld) [Volume fraction]28.5 %Low39.0-51.0[facility] Comment on above:Order Comment: Specimen Type: VENOUS BLOOD SPECIMENOrdering Facility: [facility] Address: [address] [place], [place] [address]Performed By: #### [id number] ####[facility] LABIA [id number] [place] [address] [place] Hemoglobin (Bld) [Mass/Vol]9.2 g/dLLow13.0-17.0[facility] on above:Order Comment: Specimen Type: VENOUS BLOOD SPECIMENOrdering Facility: [facility] Address: [address] [place] [address] Performed By: #### 56952-8 ####[facility] LABIA [id number] [place] [address] [place] Lactate [Moles/Vol]8.3 mmol/LHigh0.5-2.2ClevelAtrium HealthComment on above:Order Comment: Specimen Type: VENOUS BLOOD SPECIMENOrdering Facility: [facility] Address: [address] [place] [address] Performed By: #### 98280-5 ####[facility] LABIA [id number] [place] [address] [place] Methemoglobin (Bld) [Mass fraction]1.1 %Normal0.0-1.5CSumma [facility] Comment on above:Order Comment: Specimen Type: VENOUS BLOOD SPECIMENOrdering Facility: [facility] Address: [address] [place], [place] [address]Performed By: #### 27348-4 ####[facility] LABIA [id number] [place] [address] [place] Oxygen (BldV) [Partial pressure]43 mm[Hg]Lyqxby72-50MgasujszdSelect Medical Specialty [facility] Comment on above:Order Comment: Specimen Type: VENOUS BLOOD SPECIMENOrdering Facility: [facility] Address: [address] [place], [place] [address]Performed By: #### 44512-1 ####[facility] [id number] [address], [place] [address] [place] Oxygen saturation in Venous blood68 %Qcwenu66-71HfbnzevsjSelect Medical Specialty [facility] Comment on above:Order Comment: Specimen Type: VENOUS BLOOD SPECIMENOrdering Facility: [facility] Address: [address] [place], [place] [address]Performed By: #### 11622-0 ####[facility] LABCLIA [id number] [address] [address] [place] Oxyhemoglobin (BldV) [Mass fraction]66 %Xmprbw01-05SholzxamySelect Medical Specialty Hospital [facility] Comment on above:Order Comment: Specimen Type: VENOUS BLOOD SPECIMENOrdering Facility: [facility] Address: [address] [place], [place] [address]Performed By: #### 38528-0 ####[facility] LABCLIA [id number] [place] [address] [place] PEEP/CPAP8 wtM6BNvppryIrrwagugxSumma Health Akron CampusComment on above:Order Comment: Specimen Type: VENOUS BLOOD SPECIMENOrdering Facility: [facility] Address: [address] [place], [place] [address]Performed By: #### 98552-4 ####[facility] LABCLIA [id number] [place] [address] [place] AMERICApH (BldV)7.26 [pH]Low 7.32-7.42[facility]-FairhillComment on above:Order Comment: Specimen Type: VENOUS BLOOD SPECIMENOrdering Facility: [facility] Ad dress: [address] [place], [place] [address]Performed By: #### 88680-2 ####[facility] LABCLIA [id number] [place] [address] [place] AMERICASodium [Moles/Vol]141 mmol/L Tvlroi822-272ZdblnnmceSelect Medical Specialty Hospital [facility]-FairhillComselect specialty hospital-fl[facility] on above:Order Comment: Specimen Type: VENOUS BLOOD SPECIMENOrdering Facility: [facility] Ad dress: [address] [place], [place] [address]Performed By: #### 07826-4 ####[facility] LABCLIA [id number] [place] [address] [place] AMERICABASE DEFICIT, VENOUS-6 mmol/LLow -2-0[facility]-FairhillComment on above:Order Comment: Specimen Type: VENOUS BLOOD SPECIMENOrdering Facility: [facility] Address: [address] [place], [place] [address]Performed By: #### 98687-3 ####[facility] [id number] [place] [address] [place] AMERICACalcium.ionized (Bld) [Mass/Vol]1.23 mmol/LNormal 1.08-1.30[facility] on above:Order Comment: Specimen Type: VENOUS BLOOD SPECIMENOrdering Facility: [facility] Ad dress: [address] [place], [place] [address]Performed By: #### 96369-9 ####[facility] [id number] [address] STATES OF AMERICACalcium.ionized adjusted to pH 7.4 (BldA) [Moles/Vol]1.13 mmol/LNormal1.08-1.30[facility] Comment on above:Order Comment: Specimen Type: VENOUS BLOOD SPECIMENOrdering Facility: [facility] Address: [address] [place], [place] [address]Performed By: #### 81017-6 ####[facility] [id number] [place] [address] [place] Carboxyhemoglobin (BldV) [Mass fraction]1.4 %Normal0.0-2.0[facility] on above:Order Comment: Specimen Type: VENOUS BLOOD SPECIMENOrdering Facility: [facility] Address: [address] [place], [place] [address]Result Comment: Carboxyhemoglobin Reference Range for Smokers: 2.0-8.0%Performed By: #### 47550-3 ####[facility] LABCLIA [id number] [place] [address] [place] AMERICACO2 (BldV) [Partial pressure]50 mm[Hg]Emqyrc82-87BrahgtwovKettering Health Behavioral Medical Center on above:Order Comment: Specimen Type: VENOUS BLOOD SPECIMENOrdering Facility: [facility] Address: [address] [place], [place] [address]Performed By: #### 79106-4 ####[facility] LABCLIA [id number] [place] [address] [place] AMERICAHCO3 (Bld) [Moles/Vol]21 mmol/MFih33-68VcakpiitxKettering Health Behavioral Medical Center on above:Order Comment: Specimen Type: VENOUS BLOOD SPECIMENOrdering Facility: [facility] Address: [address] [place] [address] Performed By: #### 62144-2 ####[facility] [id number] [place] [address] [place] Hematocrit (Bld) [Volume fraction]30.5 %Low39.0-51.0[facility] Comment on above:Order Comment: Specimen Type: VENOUS BLOOD SPECIMENOrdering Facility: [facility] Address: [address] [place], [place] [address]Performed By: #### 24258-0 ####[facility] [id number] [place] [address] [place] Hemoglobin (Bld) [Mass/Vol]9.9 g/dLLow13.0-17.0[facility] on above:Order Comment: Specimen Type: VENOUS BLOOD SPECIMENOrdering Facility: [facility] Address: [address] [place] [address] Performed By: #### 95710-1 ####[facility] LABCLIA [id number] [place] [address] [place] Lactate [Moles/Vol]8.2 mmol/LHigh0.5-2.2[facility] Clinic ClevelandComment on above:Order Comment: Specimen Type: VENOUS BLOOD SPECIMENOrdering Facility: [facility] Address: [address] [place] [id number] Performed By: #### 53770-9 ####[facility] LABCLIA [id number] [address] [address] [place] Methemoglobin (Bld) [Mass fraction]1.0 %Normal0.0-1.5CSumma Health [facility] Campus Comment on above:Order Comment: Specimen Type: VENOUS BLOOD SPECIMENOrdering Facility: [facility] Address: [address] [place], [place] [address]Performed By: #### 07549-9 ####[facility] LABCLIA [id number] [place] [id number] [place] Oxygen (BldV) [Partial pressure]40 mm[Hg]Tinjgb90-18YizsghquuSelect Medical Specialty [facility] Comment on above:Order Comment: Specimen Type: VENOUS BLOOD SPECIMENOrdering Facility: [facility] Address: [address] [place], [place] [address]Performed By: #### 39158-7 ####[facility] LABCLIA [id number] [place] [id number] [place] Oxygen saturation in Venous blood63 %Uqwqjt93-10NsjbwwizsSelect Medical Specialty [facility] Comment on above:Order Comment: Specimen Type: VENOUS BLOOD SPECIMENOrdering Facility: [facility] Address: [address] [place], [place] [id number] By: #### 58172-3 ####[facility] LABCLIA [id number] [address] [address] [place] Oxyhemoglobin (BldV) [Mass fraction]62 %Blolsj64-21ZtoeuwopxSelect Medical Specialty [facility] Comment on above:Order Comment: Specimen Type: VENOUS BLOOD SPECIMENOrdering Facility: [facility] Address: [address] [place] [id number] By: #### 81642-4 ####[facility] LABCLIA [id number] [place] [address] [place] pH (BldV)7.25 [pH]Low7.32-7.42[facility] on above:Order Comment: Specimen Type: VENOUS BLOOD SPECIMENOrdering Facility: [facility] Address: [address] [place], [place] [address]Performed By: #### 56015-2 ####[facility] [id number] [place] [address] [place] AMERICAPotassium [Moles/Vol] 3.7 mmol/LNormal3.5-5.0[facility] on above:Order Comment: Specimen Type: VENOUS BLOOD SPECIMENOrdering Facility: [facility] Address: [address] [place], [place] [address]Performed By: #### 60467-2 ####[facility] [id number] [address] STATES OF [facility] HOSPITALSodium [Moles/Vol]141 mmol/CBoeljp096-160EqijmfltwKettering Health [facility]al [facility] Center on above:Order Comment: Specimen Type: VENOUS BLOOD SPECIMENOrdering Facility: [facility] Address: [address] [place], [place] [address]Performed By: #### 76097-2 ####[facility] [id number] [place] [address] [place] AMERICAHIGH SENSITIVITY TROPONIN Ton 08-15-7159Tzkdxrsa T.cardiac High sensitivity method [Mass/Vol]3121 ng/LHigh<12[facility] on above:Order Comment: Specimen Type: BLOOD SPECIMENOrdering Facility: [facility] Address:[address] [place], [place] [address]Performed By: #### 80409-3, HSTNT ####[facility]IA [id number] [place] [address] [place] AMERICAXR CHEST 1V FRONTAL PORTon 99-75-5368XR CHEST 1V FRONTAL PORTNormalCSt. John of [facility] POSTPROC EVALon 44-96-7391EZYJ POSTPROC EVALNormalCSumma Health Akron CampusANES PRE-OPon 58-91-0532NCWS PRE-OP NormalSelect Medical Specialty Hospital - [facility]-FairhillARTERIAL BLOOD GASESon 35-77-2800Lxcj deficit (BldA) [Moles/Vol]-7 mmol/DTzr-5-6UycocvhseKettering Health Behavioral Medical Center on above: Order Comment: Specimen Type: ARTERIAL BLOOD SPECIMENOrdering Facility: [facility]Address: [address] [place] [address] Performed By: #### ALLBG ####[facility] LABCLIA [id number] [place] [address] [place] AMERICABody tumaavdvxbv95.6 [degF]NormalKettering Health Behavioral Medical Center on above:Order Comment: Specimen Type: ARTERIAL BLOOD SPECIMENOrdering Facility: [facility]Address: [address] [place], [place] [address]Performed By: #### ALLBG ####[facility] LABCLIA [id number] [place] [address] [place] AMERICAOrder Comment: Specimen Type: VENOUS BLOOD SPECIMENOrdering Facility: [facility] Address: [address] [place], [place] [address]Performed By: #### 93861-2 ####[facility] LABCLIA [id number] [place] [address] [place] AMERICACalcium.ionized (Bld) [Mass/Vol]1.14 mmol/LNormal 1.08-1.30[facility] on above:Order Comment: Specimen Type: ARTERIAL BLOOD SPECIMENOrdering Facility: [facility] Address: [address] [place], [place] [address]Performed By: #### ALLBG ####[facility] LABCLIA [id number] [facility] [place] [address] [place]ICACalcium.ionized adjusted to pH 7.4 (BldA) [Moles/Vol]1.09 mmol/LNormal1.08-1.30[facility] on above:Order Comment: Specimen Type: ARTERIAL BLOOD SPECIMENOrdering Facility: [facility]Address: [address] [place] [address] Performed By: #### ALLBG ####[facility] LABCLIA [id number] [address] [address] [place] Carboxyhemoglobin (BldA) [Mass fraction]1.7 %Normal0.0-2.0[facility] on above:Order Comment: Specimen Type: ARTERIAL BLOOD SPECIMENOrdering Facility: [facility]Address: [address] [place] [id number] Comment: Carboxyhemoglobin Reference Range for Smokers: 2.0-8.0%Performed By: #### ALLBG ####[facility] LABCLIA [id number] [place] [address] [place] AMERICACO2 (Bld) [Partial pressure]38 mm BkPvyyis26-23TlmravoqqSelect Medical [facility] Comment on above:Order Comment: Specimen Type: ARTERIAL BLOOD SPECIMENOrdering Facility: [facility]Address: [address] [place] [id number] By: #### ALLBG ####[facility] LABCLIA [id number] [place] [address] [place] Glucose [Mass/Vol]200 mg/cGCjnt51-354PqboqopipKettering Health Behavioral Medical Center on above: Order Comment: Specimen Type: ARTERIAL BLOOD SPECIMENOrdering Facility: [facility]Address: [address] [place] [address] Performed By: #### ALLBG ####[facility] LABCLIA [id number] [place] [id number] [place] AMERICAHCO3 (Bld) [Moles/Vol]19 mmol/VUgl13-51UwfizekoyKettering Health Behavioral Medical Center on above:Order Comment: Specimen Type: ARTERIAL BLOOD SPECIMENOrdering Facility: [facility]Address: [address] [place], [place] [address]Performed By: #### ALLBG ####[facility] LABCLIA [id number] [place] [address] [place] AMERICAHematocrit (Bld) [Volume fraction]32.0 %Low39.0-51.0[facility]hillComment on above:Order Comment: Specimen Type: ARTERIAL BLOOD SPECIMENOrdering Facility: [facility]Address: [address] [place], [place] [address]Performed By: #### ALLBG ####[facility] LABCLIA [id number] [place] [address] [place] AMERICAHemoglobin (Bld) [Mass/Vol]10.3 g/dLLow13.0-17.0[facility]-FairhillComment on above:Order Comment: Specimen Type: ARTERIAL BLOOD SPECIMENOrdering Facility: [facility]Address: [address] [place], [place] [address]Performed By: #### ALLBG ####[facility] LABCLIA [id number] [place] [address] [place] AMERICAOrder Comment: Specimen Type: VENOUS BLOOD SPECIMENOrdering Facility: [facility] Address: [address] [place], [place] [address]Performed By: #### 85106-5 ####[facility] LABCLIA [id number] [place] [address] [place] AMERICAOrder Comment: Specimen Type: BLOOD SPECIMENOrdering Facility: [facility] Address:[address] [place], [place] [address]Performed By: #### 12265-2 ####[facility] LABCLIA [id number] [place] [address] [place] AMERICALactate [Moles/Vol]7.0 mmol/LHigh0.5-2.2CSumma [facility] Comment on above:Order Comment: Specimen Type: ARTERIAL BLOOD SPECIMENOrdering Facility: [facility]Address: [address] [place], [place] [address]Performed By: #### ALLBG ####[facility] LABCLIA [id number] [place] [address] [place] Methemoglobin (Bld) [Mass fraction]0.9 %Normal0.0-1.5CSumma Health [facility] Campus Comment on above:Order Comment: Specimen Type: ARTERIAL BLOOD SPECIMENOrdering Facility: [facility]Address: [address] [place], [place] [address]Performed By: #### ALLBG ####[facility] LABCLIA [id number] [place] [address] [place] O2 THERAPYVENT=VentilatorNormalCSt. [facility] Hospital on above:Order Comment: Specimen Type: ARTERIAL BLOOD SPECIMENOrdering Facility: [facility]Address: [address] [place], [place] [address]Performed By: #### ALLBG ####[facility] LABCLIA [id number] [place] [address] [place] AMERICAOrder Comment: Specimen Type: VENOUS BLOOD SPECIMENOrdering Facility: [facility] Address: [address] [place], [place] [address]Performed By: #### 41333-3 ####[facility] LABCLIA [id number] [place] [address] [place] AMERICAOxygen (Bld) [Partial pressure]161 mm GiEmys93-95 [facility] on above:Order Comment: Specimen Type: ARTERIAL BLOOD SPECIMENOrdering Facility: [facility]Address: [address] [place], [place] [address]Performed By: #### ALLBG ####[facility] LABCLIA [id number] [place] [id number] [place] AMERICAOxyhemoglobin (BldA) [Mass fraction]97 %Normal 95-98[facility] on above:Order Comment: Specimen Type: ARTERIAL BLOOD SPECIMENOrdering Facility: [facility]Address: [address] [place], [place] [address]Performed By: #### ALLBG ####[facility] LABCLIA [id number] [place] [address] [place] AMERICApH (Bld)7.31 [pH]Low7.35-7.45[facility]-FairhillComment on above:Order Comment: Specimen Type: ARTERIAL BLOOD SPECIMENOrdering Facility: [facility]Address: [address] [place], [place] [address]Performed By: #### ALLBG ####[facility] LABCLIA [id number] [place] [address] [place] AMERICAPotassium [Moles/Vol]4.3 mmol/LNormal3.5-5.0[facility] Comment on above:Order Comment: Specimen Type: ARTERIAL BLOOD SPECIMENOrdering Facility: [facility]Address: [address] [place], [place] [address]Performed By: #### ALLBG ####[facility] LABCLIA [id number] [place] [address] [place] Order Comment: Specimen Type: VENOUS BLOOD SPECIMENOrdering Facility: [facility] Address: [address] [place], [place] [address]Performed By: #### 53465-9 ####[facility] LABCLIA [id number] [place] [address] [place] AMERICASodium [Moles/Vol]138 mmol/CHykbnl181-492IgzpktfnbSelect Medical Specialty Hospital - Cleveland-FairhillComment on above:Order Comment: Specimen Type: ARTERIAL BLOOD SPECIMENOrdering Facility: [facility]Address: [address] [place], [place] [address]Performed By: #### ALLBG ####[facility] LABCLIA [id number] [place] [address] [place] AMERICABase deficit (BldA) [Moles/Vol]-5 mmol/YWos-9-1PzswwwrnbKettering Health Behavioral [facility] Center on above:Order Comment: Specimen Type: ARTERIAL BLOOD SPECIMENOrdering Facility: [facility] Address: [facility] [place], [place] [address]Performed By: #### ALLBG ####[facility] LABCLIA [id number] [place] [address] [place] AMERICABody nkwyogozlov01 [degF]Normal [facility] on above:Order Comment: Specimen Type: ARTERIAL BLOOD SPECIMENOrdering Facility: [facility]Address: [address] [place], [place] [address]Performed By: #### ALLBG ####[facility] LABCLIA [id number] [place] [address] [place] AMERICAOrder Comment: Specimen Type: VENOUS BLOOD SPECIMENOrdering Facility: [facility] Address: [address] [place], [place] [address]Performed By: #### 76651-9 ####[facility] LABCLIA [id number] [place] [address] [place] AMERICACalcium.ionized (Bld) [Mass/Vol]1.15 mmol/LNormal1.08-1.30[facility] on above:Order Comment: Specimen Type: ARTERIAL BLOOD SPECIMENOrdering Facility: [facility]Address: [address] [place], [place] [address]Performed By: #### ALLBG ####[facility] LABCLIA [id number] [place] [address] [place]ACalcium.ionized adjusted to pH 7.4 (BldA) [Moles/Vol]1.11 mmol/LNormal 1.08-1.30[facility] on above:Order Comment: Specimen Type: ARTERIAL BLOOD SPECIMENOrdering Facility: [facility] Address: [address] [place], [place] [address]Performed By: #### ALLBG ####[facility] LABCLIA [id number] [facility]PITALLID AVENUESALINAS VALLEY HEALTH MEDICAL CENTERK [address] [place] [address] [place] AMERICACarboxyhemoglobin (BldA) [Mass fraction]1.6 %Normal0.0-2.0[facility] on above:Order Comment: Specimen Type: ARTERIAL BLOOD SPECIMENOrdering Facility: [facility]Address: [address] [place], [place] [address]Wjayfi Comment: Carboxyhemoglobin Reference Range for Smokers: 2.0-8.0%Performed By: #### ALLBG ####[facility] LABCLIA [id number] [address] [facility]ITALD [facility]ERK [place] [id number] [place] AMERICACO2 (Bld) [Partial pressure]41 mm ZdWiugxi17-76BhpgxalpmKettering Health Behavioral Medical Center on above:Order Comment: Specimen Type: ARTERIAL BLOOD SPECIMENOrdering Facility: [facility] Address: [address] [place], [place] [id number] By: #### ALLBG ####[facility] LABCLIA [id number] [facility]D [facility]ERK [place] [id number] [place] STATES OF AMERICACO2 adjusted to patient's actual temperature (Bld) [Partial pressure]37 ssUqHxlqik15-68AkepsgommSelect Medical Specialty [facility] Comment on above:Order Comment: Specimen Type: ARTERIAL BLOOD SPECIMENOrdering Facility: [facility]Address: [address] [place] [id number] By: #### ALLBG ####[facility] LABCLIA [id number] [facility] [facility]ITALD [facility]ENTERK [address] [address] [place] Glucose [Mass/Vol]189 mg/gPXdhq98-807ZczwmvxsxKettering Health [facility]al [facility] Center on above: Order Comment: Specimen Type: ARTERIAL BLOOD SPECIMENOrdering Facility: [facility]Address: [address] [place] [address] Performed By: #### ALLBG ####[facility] LABCLIA [id number] [place] [id number] [place] AMERICAOrder Comment: Specimen Type: VENOUS BLOOD SPECIMENOrdering Facility: [facility] Address: [address] [place], [place] [address]Performed By: #### 98230-7 ####[facility] LABCLIA [id number] [place] [address] [place] AMERICAHCO3 (Bld) [Moles/Vol] 21 mmol/YOpa23-62WlnyntrcwKettering Health Behavioral Medical Center on above:Order Comment: Specimen Type: ARTERIAL BLOOD SPECIMENOrdering Facility: [facility]Address: [address] [place], [place] [address]Performed By: #### ALLBG ####[facility] LABIA [id number] [place] [address] [place] AMERICAHematocrit (Bld) [Volume fraction] 34.9 %Low39.0-51.0[facility] on above:Order Comment: Specimen Type: ARTERIAL BLOOD SPECIMENOrdering Facility: [facility]Address: [address] [place], [place] [address]Performed By: #### ALLBG ####[facility] LABIA [id number] [place] [address] [place] AMERICAHemoglobin (Bld) [Mass/Vol]11.3 g/dLLow13.0-17.0[facility] on above:Order Comment: Specimen Type: ARTERIAL BLOOD SPECIMENOrdering Facility: [facility]Address: [address], [place] [address]Performed By: #### ALLBG ####[facility] LABCLIA [id number] [facility] L [address] [place] [address] [place] AMERICALactate [Moles/Vol]5.3 mmol/LHigh 0.5-2.2CSt. [facility] on above:Order Comment: Specimen Type: ARTERIAL BLOOD SPECIMENOrdering Facility: [facility]Address: [address] [facility] [place], [place] [address]Performed By: #### ALLBG ####[facility] LABCLIA [id number] [place] [id number] [place] OF AMERICAMethemoglobin (Bld) [Mass fraction]0.8 %Normal 0.0-1.5CSt. Vincent Hospital on above:Order Comment: Specimen Type: ARTERIAL BLOOD SPECIMENOrdering Facility: [facility]Address: [address] [place] [id number] By: #### ALLBG ####[facility] LABCLIA [id number] [place] [id number] [place] OF AMERICAO2 THERAPYVENT=VentilatorNormalCSt. Vincent Hospital on above:Order Comment: Specimen Type: ARTERIAL BLOOD SPECIMENOrdering Facility: [facility]Address: [address] [place], [place] [address]Performed By: #### ALLBG ####[facility] LABCLIA [id number] [address] STATES OF AMERICAOrder Comment: Specimen Type: VENOUS BLOOD SPECIMENOrdering Facility: [facility] Address: [address] [id number] Performed By: #### [id number] ####[facility] LABCLIA [id number] [place] [id number] [place] Oxygen (Bld) [Partial pressure]134 mm [id number] Medical Specialty [facility] Comment on above:Order Comment: Specimen Type: ARTERIAL BLOOD SPECIMENOrdering Facility: [facility]Address: [address] [id number] By: #### ALLBG ####[facility] LABCLIA [id number] [place] [id number] [place] Oxygen adjusted to patient's actual temperature (Bld) [Partial pressure]123 mmHg Hphx87-31UwtwlbhirKettering Health Behavioral Medical Center on above:Order Comment: Specimen Type: ARTERIAL BLOOD SPECIMENOrdering Facility: [facility] Address: [address] [id number] By: #### ALLBG ####[facility] LABCLIA [id number] [facility]D [facility] CENTERK [address] [address] [place] AMERICAOxyhemoglobin (BldA) [Mass fraction]97 %Rhsuab81-05MzckhavqqKettering Health Behavioral Medical Center on above:Order Comment: Specimen Type: ARTERIAL BLOOD SPECIMENOrdering Facility: [facility]Address: [address] [place], [place] [address]Performed By: #### ALLBG ####[facility] LABCLIA [id number] [facility] [place] [id number] [place] AMERICApH (Bld)7.32 [pH]Low7.35-7.45 [facility] on above:Order Comment: Specimen Type: ARTERIAL BLOOD SPECIMENOrdering Facility: [facility]Address: [address] [place], [place] [address]Performed By: #### ALLBG ####[facility] LABCLIA [id number] [place] [address] [place] AMERICApH adjusted to patient's actual temperature (Bld) 7.75Fuencr5.35-7.45[facility] on above:Order Comment: Specimen Type: ARTERIAL BLOOD SPECIMENOrdering Facility: [facility]Address: [address] [place], [place] [address]Performed By: #### ALLBG ####[facility] LABCLIA [id number] [place] [id number] [place] AMERICAPotassium [Moles/Vol]5.5 mmol/L High3.5-5.0[facility] on above:Order Comment: Specimen Type: ARTERIAL BLOOD SPECIMENOrdering Facility: [facility] Address: [address] [place], [place] [address]Performed By: #### ALLBG ####[facility] LABCLIA [id number] [place] [address] [place] AMERICASodium [Moles/Vol]136 mmol/LNormal 136-144[facility] on above:Order Comment: Specimen Type: ARTERIAL BLOOD SPECIMENOrdering Facility: [facility]Address: [address] [place], [place] [address]Performed By: #### ALLBG ####[facility] LABCLIA [id number] [place] [address] [place] AMERICAOrder Comment: Specimen Type: VENOUS BLOOD SPECIMENOrdering Facility: [facility] Address: [address] [place], [place] [address]Performed By: #### [id number] ####[facility] LABIA [id number] [place] [address] [place] AMERICABase deficit (BldA) [Moles/Vol]-2 mmol/JFzpgkv-8-2CrxgeropaKettering Health Behavioral Medical Center on above:Order Comment: Specimen Type: ARTERIAL BLOOD SPECIMENOrdering Facility: [facility]Address: [address] [place], [place] [address]Performed By: #### ALLBG ####[facility] LABIA [id number] [place] [address] [place] AMERICACalcium.ionized (Bld) [Mass/Vol]1.17 mmol/LNormal1.08-1.30[facility] on above:Order Comment: Specimen Type: ARTERIAL BLOOD SPECIMENOrdering Facility: [facility]Address: [address] [place], [place] [address]Performed By: #### ALLBG ####[facility] LABIA [id number] [place] [address] [place] AMERICACalcium.ionized adjusted to pH 7.4 (BldA) [Moles/Vol]1.15 mmol/LNormal 1.08-1.30[facility] on above:Order Comment: Specimen Type: ARTERIAL BLOOD SPECIMENOrdering Facility: [facility] Address: [address] [place], [place] [address]Performed By: #### ALLBG ####[facility] LABIA [id number] [address] [address] [place] AMERICACarboxyhemoglobin (BldA) [Mass fraction]1.6 %Normal0.0-2.0[facility] Hospitalment on above:Order Comment: Specimen Type: ARTERIAL BLOOD SPECIMENOrdering Facility: [facility]Address: [address] [id number] Comment: Carboxyhemoglobin Reference Range for Smokers: 2.0-8.0%Performed By: #### ALLBG ####[facility] LABIA [id number] [place] [address] [place] AMERICACO2 (Bld) [Partial pressure]39 mm SaXdhqow54-72ZabmaoxqwKettering Health Behavioral Medical Center on above:Order Comment: Specimen Type: ARTERIAL BLOOD SPECIMENOrdering Facility: [facility] Address: [address] [place], [place] [address]Performed By: #### ALLBG ####[facility] LABIA [id number] [place] [address] [place] AMERICACO2 adjusted to patient's actual temperature (Bld) [Partial pressure]39 cqSlKsqooe23-89WpxsppxuySelect Medical Specialty [facility] Comment on above:Order Comment: Specimen Type: ARTERIAL BLOOD SPECIMENOrdering Facility: [facility]Address: [address] [phone] By: #### ALLBG ####[facility] LABIA [id number] [place] [id number] [place] Glucose [Mass/Vol]180 mg/kVEmjm57-706YqewjipawKettering Health Behavioral Medical Center on above: Order Comment: Specimen Type: ARTERIAL BLOOD SPECIMENOrdering Facility: [facility]Address: [address] [phone] Performed By: #### ALLBG ####[facility] LABIA [id number] [place] [id number] [place] AMERICAHCO3 (Bld) [Moles/Vol]22 mmol/YUlskez59-94XcpkaiwkaKettering Health Behavioral Medical Center on above:Order Comment: Specimen Type: ARTERIAL BLOOD SPECIMENOrdering Facility: [facility]Address: [address] [place], [place] [address]Performed By: #### ALLBG ####[facility] LABIA [id number] [place] [address] [place] AMERICAHematocrit (Bld) [Volume fraction]28.9 %Low39.0-51.0[facility] on above:Order Comment: Specimen Type: ARTERIAL BLOOD SPECIMENOrdering Facility: [facility]Address: [address] [place], [place] [address]Performed By: #### ALLBG ####[facility] LABIA [id number] [place] [address] [place] AMERICAHemoglobin (Bld) [Mass/Vol]9.3 g/dLLow13.0-17.0[facility] on above:Order Comment: Specimen Type: ARTERIAL BLOOD SPECIMENOrdering Facility: [facility]Address: [address] [phone] By: #### ALLBG ####[facility] LABIA [id number] [place] [address] [place] AMERICALactate [Moles/Vol]4.7 mmol/LHigh 0.5-2.2CSt. [facility] on above:Order Comment: Specimen Type: ARTERIAL BLOOD SPECIMENOrdering Facility: [facility]Address: [address] [phone] By: #### ALLBG ####[facility] LABIA [id number] [place] [address] [place] AMERICAMethemoglobin (Bld) [Mass fraction]0.8 %Normal 0.0-1.5CSt. [facility] Hospital on above:Order Comment: Specimen Type: ARTERIAL BLOOD SPECIMENOrdering Facility: [facility]Address: [address] [place], [place] [address]Gcknkcqul By: #### ALLBG ####[facility] LABCLIA [id number] [address] [address] [place] AMERICAOxygen (Bld) [Partial pressure]213 mm YvKlac94-65 [facility] on above:Order Comment: Specimen Type: ARTERIAL BLOOD SPECIMENOrdering Facility: [facility]Address: [address] [place] [phone] By: #### ALLBG ####[facility] LABCLIA [id number] [address] [address] [place] AMERICAOxygen adjusted to patient's actual temperature (Bld) [Partial pressure]213 egIsYwre08-42EbiwyvbxiKettering Health Behavioral Medical Center on above:Order Comment: Specimen Type: ARTERIAL BLOOD SPECIMENOrdering Facility: [facility]Address: [address] [place] [phone] Performed By: #### ALLBG ####[facility] LABCLIA [id number] [place] [id number] [place] AMERICAOxyhemoglobin (BldA) [Mass fraction]98 %Lagpbw74-84EkatxkedkKettering Health Behavioral Medical Center on above: Order Comment: Specimen Type: ARTERIAL BLOOD SPECIMENOrdering Facility: [facility]Address: [address] [place] [address] Performed By: #### ALLBG ####[facility] LABCLIA [id number] [place] [id number] [place] AMERICApH (Bld)7.38 [pH]Normal7.35-7.45[facility] on above:Order Comment: Specimen Type: ARTERIAL BLOOD SPECIMENOrdering Facility: [facility]Address: [address] [phone] By: #### ALLBG ####[facility] LABCLIA [id number] [facility]D [facility] CENTERK [place] [id number] [place] AMERICApH adjusted to patient's actual temperature (Bld)7.86Yqpgew8.35-7.45[facility] on above: Order Comment: Specimen Type: ARTERIAL BLOOD SPECIMENOrdering Facility: [facility]Address: [address] [place] [address] Performed By: #### ALLBG ####[facility] LABCLIA [id number] [place] [address] [place] AMERICAPotassium [Moles/Vol]5.3 mmol/LHigh3.5-5.0[facility] on above:Order Comment: Specimen Type: ARTERIAL BLOOD SPECIMENOrdering Facility: [facility]Address: [facility] [place], [place] [address]Performed By: #### ALLBG ####[facility] LABCLIA [id number] [place] [address] [place]ICASodium [Moles/Vol]137 mmol/L Sfkram665-014RpekcdlzsKettering Health Behavioral Medical Center on above:Order Comment: Specimen Type: ARTERIAL BLOOD SPECIMENOrdering Facility: [facility] Address: [address] [place], [place] [address]Performed By: #### ALLBG ####[facility] LABCLIA [id number] [place] [address] [place] AMERICABase deficit (BldA) [Moles/Vol]-5 mmol/UHmv-4-5AucnbkvauKettering Health Behavioral Medical Center on above:Order Comment: Specimen Type: ARTERIAL BLOOD SPECIMENOrdering Facility: [facility] Address: [address] [place], [place] [address]Performed By: #### ALLBG ####[facility] LABIA [id number] [place] [address] [place] AMERICACalcium.ionized (Bld) [Mass/Vol] 1.14 mmol/LNormal1.08-1.30[facility] on above:Order Comment: Specimen Type: ARTERIAL BLOOD SPECIMENOrdering Facility: [facility]Address: [address] [phone] By: #### ALLBG ####[facility] LABCLIA [id number] [place] [address] [place]ICACalcium.ionized adjusted to pH 7.4 (BldA) [Moles/Vol]1.06 mmol/LLow1.08-1.30[facility]hillComment on above:Order Comment: Specimen Type: ARTERIAL BLOOD SPECIMENOrdering Facility: [facility]Address: [address] [phone] Performed By: #### ALLBG ####[facility] LABIA [id number] [place] [address] [place] Carboxyhemoglobin (BldA) [Mass fraction]1.7 %Normal0.0-2.0[facility] on above:Order Comment: Specimen Type: ARTERIAL BLOOD SPECIMENOrdering Facility: [facility]Address: [address] [place], [place] [address]Result Comment: Carboxyhemoglobin Reference Range for Smokers: 2.0-8.0%Performed By: #### ALLBG ####[facility] LABCLIA [id number] [address] STATES OF AMERICACO2 (Bld) [Partial pressure]49 mm YvOjmi29-16XkflhcfvzSelect Medical Specialty Hospital [facility] Comment on above:Order Comment: Specimen Type: ARTERIAL BLOOD SPECIMENOrdering Facility: [facility]Address: [address] [place] [phone] By: #### ALLBG ####[facility] LABCLIA [id number] [place] [id number] [place] CO2 adjusted to patient's actual temperature (Bld) [Partial pressure]49 mmHgHigh 36-46[facility]-FairhillComselect [facility] on above:Order Comment: Specimen Type: ARTERIAL BLOOD SPECIMENOrdering Facility: [facility]Address: [address] [facility] [place] [phone] By: #### ALLBG ####[facility] LABCLIA [id number] [address] [address] [place] AMERICAGlucose [Mass/Vol]193 mg/aLRkoy15-219BmkmgxbydSelect Medical Specialty Hospital - Cleveland-FairhillComment on above:Order Comment: Specimen Type: ARTERIAL BLOOD SPECIMENOrdering Facility: [facility]Address: [address] [phone] By: #### ALLBG ####[facility] LABCLIA [id number] [place] [id number] [place] AMERICAHCO3 (Bld) [Moles/Vol]22 mmol/HFdlbjw65-13KlhixzaaqSelect Medical Specialty Hospital [facility] Comment on above:Order Comment: Specimen Type: ARTERIAL BLOOD SPECIMENOrdering Facility: [facility]Address: [address] [place], [place] [address]Performed By: #### ALLBG ####[facility] LABIA [id number] [place] [address] [place] Hematocrit (Bld) [Volume fraction]27.7 %Low39.0-51.0[facility] Comment on above:Order Comment: Specimen Type: ARTERIAL BLOOD SPECIMENOrdering Facility: [facility]Address: [address] [place] [phone] By: #### ALLBG ####[facility] LABIA [id number] [place] [id number] [place] Hemoglobin (Bld) [Mass/Vol]8.9 g/dLLow13.0-17.0[facility]-FairhillComment on above:Order Comment: Specimen Type: ARTERIAL BLOOD SPECIMENOrdering Facility: [facility]Address: [address] [place], [place] [address]Nrhebsbhz By: #### ALLBG ####[facility] LABCLIA [id number] [address] [address] [place] Lactate [Moles/Vol]5.1 mmol/LHigh0.5-2.2CSt. [facility] on above:Order Comment: Specimen Type: ARTERIAL BLOOD SPECIMENOrdering Facility: [facility]Address: [address] [place] [address] Performed By: #### ALLBG ####[facility] LABCLIA [id number] [address] [address] [place] AMERICAMethemoglobin (Bld) [Mass fraction]1.0 %Normal0.0-1.5CSt. [facility] Hospital on above:Order Comment: Specimen Type: ARTERIAL BLOOD SPECIMENOrdering Facility: [facility]Address: [address] [place] [address] Performed By: #### ALLBG ####[facility] LABCLIA [id number] [address] [address] [place] AMERICAOxygen (Bld) [Partial pressure]223 mm RjArbv69-60OaslrponjKettering Health Behavioral Medical Center on above: Order Comment: Specimen Type: ARTERIAL BLOOD SPECIMENOrdering Facility: [facility]Address: [address] [place] [address] Performed By: #### ALLBG ####[facility] LABCLIA [id number] [address] [address] [place] AMERICAOxygen adjusted to patient's actual temperature (Bld) [Partial pressure]223 lwZlCkdr44-64 [facility] on above:Order Comment: Specimen Type: ARTERIAL BLOOD SPECIMENOrdering Facility: [facility]Address: [address], [place] [address]Uytvuzaef By: #### ALLBG ####[facility] LABCLIA [id number] [address] [address] [place] AMERICAOxyhemoglobin (BldA) [Mass fraction]97 %Normal 95-98[facility] on above:Order Comment: Specimen Type: ARTERIAL BLOOD SPECIMENOrdering Facility: [facility]Address: [address], [place] [address]Gnvrahkvi By: #### ALLBG ####[facility] LABCLIA [id number] [place] [address] [place] AMERICApH (Bld)7.27 [pH]Low7.35-7.45[facility] on above:Order Comment: Specimen Type: ARTERIAL BLOOD SPECIMENOrdering Facility: [facility]Address: [address] [place], [place] [address]Performed By: #### ALLBG ####[facility] LABIA [id number] [place] [address] [place]ICApH adjusted to patient's actual temperature (Bld)7.27Low7.35-7.45 [facility] on above:Order Comment: Specimen Type: ARTERIAL BLOOD SPECIMENOrdering Facility: [facility]Address: [address] [place], [place] [address]Performed By: #### ALLBG ####[facility] LABIA [id number] [place] [address] [place]ICAPotassium [Moles/Vol]4.9 mmol/LNormal3.5-5.0 [facility] on above:Order Comment: Specimen Type: ARTERIAL BLOOD SPECIMENOrdering Facility: [facility]Address: [address] [place] [phone] By: #### ALLBG ####[facility] LABIA [id number] [place] [address] [place]ASodium [Moles/Vol]136 mmol/DGjsqcv262-918FvecgfwncKet[facility] Health [facility]al [facility] Center on above:Order Comment: Specimen Type: ARTERIAL BLOOD SPECIMENOrdering Facility: [facility]Address: [address] [place], [place] [address]Performed By: #### ALLBG ####[facility] LABIA [id number] [place] [id number] [place] AMERICABase deficit (BldA) [Moles/Vol]-10 mmol/EDyd-0-4NsksgtlyhKettering Health Behavioral Medical Center on above:Order Comment: Specimen Type: ARTERIAL BLOOD SPECIMENOrdering Facility: [facility]Address: [address] [place], [place] [address]Tdzfqryxj By: #### ALLBG ####[facility] LABCLIA [id number] [address] [address] [place] AMERICACalcium.ionized (Bld) [Mass/Vol]1.17 mmol/LNormal1.08-1.30[facility] on above:Order Comment: Specimen Type: ARTERIAL BLOOD SPECIMENOrdering Facility: [facility]Address: [address] [place] [id number] By: #### ALLBG ####[facility] LABCLIA [id number] [address] [address] [place] AMERICACarboxyhemoglobin (BldA) [Mass fraction]1.4 %Normal0.0-2.0[facility] on above:Order Comment: Specimen Type: ARTERIAL BLOOD SPECIMENOrdering Facility: [facility]Address: [address] [place] [phone] Comment: Carboxyhemoglobin Reference Range for Smokers: 2.0-8.0%Performed By: #### ALLBG ####[facility] LABCLIA [id number] [address] [address] [place] AMERICACO2 (Bld) [Partial pressure]47 mm LmVjkh97-93VnjcctqusDoctors Hospital Comment on above:Order Comment: Specimen Type: ARTERIAL BLOOD SPECIMENOrdering Facility: [facility]Address: [address] [place], [place] [address]Ryltigftq By: #### ALLBG ####[facility] LABIA [id number] [address] [address] [place] CO2 adjusted to patient's actual temperature (Bld) [Partial pressure]47 mmHgHigh 36-46[facility] on above:Order Comment: Specimen Type: ARTERIAL BLOOD SPECIMENOrdering Facility: [facility]Address: [address], [place] [address]Utodifjcm By: #### ALLBG ####[facility] LABCLIA [id number] [address] [address] [place] AMERICACOMMENTSCritical Value: pH, pH(t)NormalKettering Health [facility] Center on above:Order Comment: Specimen Type: ARTERIAL BLOOD SPECIMENOrdering Facility: [facility]Address: [address] [place] [phone] By: #### ALLBG ####[facility] LABCLIA [id number] [address] [address] [place] AMERICADATE/TIME [id number] [address] PMNormalKettering Health Behavioral Medical Center on above:Order Comment: Specimen Type: ARTERIAL BLOOD SPECIMENOrdering Facility: [facility]Address: [address] [place] [address] Performed By: #### ALLBG ####[facility] LABCLIA [id number] [address] [address] [place] AMERICAGlucose [Mass/Vol]225 mg/lSQubx17-429HsywndlwgK[facility] on above:Order Comment: Specimen Type: ARTERIAL BLOOD SPECIMENOrdering Facility: [facility]Address: [address] [place], [place] [address]Zzhoggxzw By: #### ALLBG ####[facility] LABCLIA [id number] [address] [address] [place] AMERICAHCO3 (Bld) [Moles/Vol]17 mmol/L Ysn22-35YxsowarhmKettering Health Behavioral [facility] Center on above:Order Comment: Specimen Type: ARTERIAL BLOOD SPECIMENOrdering Facility: [facility]Address: [address] [place], [place] [address]Dpolokgva By: #### ALLBG ####[facility] LABCLIA [id number] [address] [address] [place] AMERICAHematocrit (Bld) [Volume fraction]30.5 %Low 39.0-51.0[facility] ClevelandComment on above:Order Comment: Specimen Type: ARTERIAL BLOOD SPECIMENOrdering Facility: [facility] Address: [address] [place], [place] [address]Performed By: #### ALLBG ####[facility] LABIA [id number] [address] [address] [place] AMERICAHemoglobin (Bld) [Mass/Vol]9.9 g/dLLow13.0-17.0[facility] on above:Order Comment: Specimen Type: ARTERIAL BLOOD SPECIMENOrdering Facility: [facility]Address: [address] [place], [place] [address]Performed By: #### ALLBG ####[facility] LABIA [id number] [address] OF AMERICALactate [Moles/Vol]5.4 mmol/LHigh 0.5-2.2CSt. [facility] on above:Order Comment: Specimen Type: ARTERIAL BLOOD SPECIMENOrdering Facility: [facility]Address: [address] [place] [id number] By: #### ALLBG ####[facility] LABIA [id number] [place] [id number] [facility] OF AMERICAMethemoglobin (Bld) [Mass fraction]1.0 %Normal 0.0-1.5CSt. [facility] on above:Order Comment: Specimen Type: ARTERIAL BLOOD SPECIMENOrdering Facility: [facility]Address: [address] [place] [id number] By: #### ALLBG ####[facility] LABIA [id number] [place] [id number] [facility] OF AMERICANOTIFIED COLBY fung RN, [place]Carolina NormalKettering Health Behavioral [facility] on above:Order Comment: Specimen Type: ARTERIAL BLOOD SPECIMENOrdering Facility: [facility]Address: [address], [place], [place] [address]Xdwafeuzv By: #### ALLBG ####[facility] LABCLIA [id number] [address] [facility]D [address] [address] [place] AMERICAOxygen (Bld) [Partial pressure]278 mm BhPrqj54-64 [facility] on above:Order Comment: Specimen Type: ARTERIAL BLOOD SPECIMENOrdering Facility: [facility]Address: [address] [place], [place] [address]Fbrbmlsok By: #### ALLBG ####[facility] LABCLIA [id number] [address] [facility]ITALD [address] [address] [place] AMERICAOxygen adjusted to patient's actual temperature (Bld) [Partial pressure]278 vmBkArqu33-69ZfzpbxlkfKettering Health Behavioral [facility] Center on above:Order Comment: Specimen Type: ARTERIAL BLOOD SPECIMENOrdering Facility: [facility]Address: [address] [place] [address] Performed By: #### ALLBG ####[facility] LABCLIA [id number] [address] [address] [place] AMERICAOxyhemoglobin (BldA) [Mass fraction]97 %Jsqgit10-57FgodhjauwKettering Health Behavioral Medical Center on above: Order Comment: Specimen Type: ARTERIAL BLOOD SPECIMENOrdering Facility: [facility]Address: [address] [place] [address] Performed By: #### ALLBG ####[facility] LABCLIA [id number] [address] [address] [place] AMERICApH (Bld)7.20 [pH]Low7.35-7.45[facility] on above:Order Comment: Specimen Type: ARTERIAL BLOOD SPECIMENOrdering Facility: [facility]Address: [address] [place], [place] [address]Kkkeqykig By: #### ALLBG ####[facility] LABCLIA [id number] [facility] [facility]D [facility] CENTERK [address] [address] [place] AMERICApH adjusted to patient's actual temperature (Bld)7.20Low7.35-7.45[facility] on above: Order Comment: Specimen Type: ARTERIAL BLOOD SPECIMENOrdering Facility: [facility]Address: [address], [place] [address] Performed By: #### ALLBG ####[facility] LABIA [id number] [address] [address] [place] OF AMERICAPotassium [Moles/Vol]4.7 mmol/LNormal3.5-5.0[facility] on above: Order Comment: Specimen Type: ARTERIAL BLOOD SPECIMENOrdering Facility: [facility]Address: [address] [place] [phone] Performed By: #### ALLBG ####[facility]IA [id number] [place] [address] [place] AMERICASodium [Moles/Vol]135 mmol/OPdj720-498HdmlvskwmKettering Health Behavioral [facility] on above:Order Comment: Specimen Type: ARTERIAL BLOOD SPECIMENOrdering Facility: [facility]Address: [address] [place], [place] [address]Performed By: #### ALLBG ####[facility] [id number] [place] [address] [place] AMERICABase deficit (BldA) [Moles/Vol]- 9 mmol/XBdo-5-1SjrikattlKettering Health Behavioral Medical Center on above:Order Comment: Specimen Type: ARTERIAL BLOOD SPECIMENOrdering Facility: [facility]Address: [address] [place] [phone] By: #### ALLBG ####[facility]IA [id number] [facility] [place] [address] [place] AMERICACalcium.ionized (Bld) [Mass/Vol] 1.13 mmol/LNormal1.08-1.30[facility] on above:Order Comment: Specimen Type: ARTERIAL BLOOD SPECIMENOrdering Facility: [facility]Address: [address] [place] [phone] By: #### ALLBG ####[facility] LABCLIA [id number] [place] [address] [place] AMERICACalcium.ionized adjusted to pH 7.4 (BldA) [Moles/Vol]1.04 mmol/LLow1.08-1.30[facility]-FairhillComment on above:Order Comment: Specimen Type: ARTERIAL BLOOD SPECIMENOrdering Facility: [facility]Address: [address] [place] [address] Performed By: #### ALLBG ####[facility] LABCLIA [id number] [place] [address] [place] Carboxyhemoglobin (BldA) [Mass fraction]1.2 %Normal0.0-2.0[facility] on above:Order Comment: Specimen Type: ARTERIAL BLOOD SPECIMENOrdering Facility: [facility]Address: [address] [place], [place] [address]Result Comment: Carboxyhemoglobin Reference Range for Smokers: 2.0-8.0%Performed By: #### ALLBG ####[facility] LABCLIA [id number] [address] STATES OF AMERICACO2 (Bld) [Partial pressure]41 mm QqSnxjdy32-17SxymqcesaSelect Medical Specialty Hospital - [facility] Comment on above:Order Comment: Specimen Type: ARTERIAL BLOOD SPECIMENOrdering Facility: [facility]Address: [address], [place] [address]Performed By: #### ALLBG ####[facility] LABCLIA [id number] [place] [address] [place] CO2 adjusted to patient's actual temperature (Bld) [Partial pressure]41 mmHg Vgpbny09-03PznlgjfjjKettering [facility] on above:Order Comment: Specimen Type: ARTERIAL BLOOD SPECIMENOrdering Facility: [facility] Address: [address] [place], [place] [address]Performed By: #### ALLBG ####[facility] LABCLIA [id number] [facility]D [facility]ENTERK L [address] [address] [place] AMERICAGlucose [Mass/Vol]222 mg/dLHigh 60-105[facility] Hospitalment on above:Order Comment: Specimen Type: ARTERIAL BLOOD SPECIMENOrdering Facility: [facility]Address: [address] [place], [place] [address]Performed By: #### ALLBG ####[facility] LABCLIA [id number] [place] [address] [place] AMERICAHCO3 (Bld) [Moles/Vol]17 mmol/DIyk28-91TapjwxnqwKettering Health [facility]al [facility] on above:Order Comment: Specimen Type: ARTERIAL BLOOD SPECIMENOrdering Facility: [facility]Address: [address] [place] [phone] By: #### ALLBG ####[facility] LABCLIA [id number] [place] [address] [place] AMERICAHematocrit (Bld) [Volume fraction]28.9 %Low39.0-51.0[facility] on above:Order Comment: Specimen Type: ARTERIAL BLOOD SPECIMENOrdering Facility: [facility]Address: [address] [place] [phone] By: #### ALLBG ####[facility] LABCLIA [id number] [place] [address] [place] AMERICAHemoglobin (Bld) [Mass/Vol]9.3 g/dLLow13.0-17.0[facility] Comment on above:Order Comment: Specimen Type: ARTERIAL BLOOD SPECIMENOrdering Facility: [facility]Address: [address] [place], [place] [address]Performed By: #### ALLBG ####[facility] LABCLIA [id number] [place] [id number] [place] Lactate [Moles/Vol]5.2 mmol/LHigh0.5-2.2CSt. [facility] on above:Order Comment: Specimen Type: ARTERIAL BLOOD SPECIMENOrdering Facility: [facility]Address: [address], [place] [address] Performed By: #### ALLBG ####[facility] LABCLIA [id number] [address] [address] [place] AMERICAMethemoglobin (Bld) [Mass fraction]1.7 %High0.0-1.5CSt. Vincent Hospital on above: Order Comment: Specimen Type: ARTERIAL BLOOD SPECIMENOrdering Facility: [facility]Address: [address] [place] [address] Performed By: #### ALLBG ####[facility] LABCLIA [id number] [address] [address] [place] AMERICAOxygen (Bld) [Partial pressure]316 mm RuBxja93-12ZmmczmqkcKettering [facility] on above: Order Comment: Specimen Type: ARTERIAL BLOOD SPECIMENOrdering Facility: [facility]Address: [address] [place] [address] Performed By: #### ALLBG ####[facility] LABCLIA [id number] [address] [address] [place] AMERICAOxygen adjusted to patient's actual temperature (Bld) [Partial pressure]316 urZuSffr78-86 [facility] on above:Order Comment: Specimen Type: ARTERIAL BLOOD SPECIMENOrdering Facility: [facility]Address: [address], [place] [address]Dievkysks By: #### ALLBG ####[facility] LABCLIA [id number] [address] [address] [place] AMERICAOxyhemoglobin (BldA) [Mass fraction]97 %Normal 95-98[facility] on above:Order Comment: Specimen Type: ARTERIAL BLOOD SPECIMENOrdering Facility: [facility]Address: [address], [place] [address]Wzfdocicg By: #### ALLBG ####[facility] LABCLIA [id number] [place] [address] [place] AMERICApH (Bld)7.24 [pH]Low7.35-7.45[facility] on above:Order Comment: Specimen Type: ARTERIAL BLOOD SPECIMENOrdering Facility: [facility]Address: [address] [place], [place] [address]Performed By: #### ALLBG ####[facility] LABCLIA [id number] [place] [address] [place] AMERICApH adjusted to patient's actual temperature (Bld)7.24Low7.35-7.45 [facility] on above:Order Comment: Specimen Type: ARTERIAL BLOOD SPECIMENOrdering Facility: [facility]Address: [address] [place] [phone] By: #### ALLBG ####[facility] [id number] [place] [address] [place] AMERICAPotassium [Moles/Vol]4.8 mmol/LNormal3.5-5.0 [facility] on above:Order Comment: Specimen Type: ARTERIAL BLOOD SPECIMENOrdering Facility: [facility]Address: [address] [place] [phone] By: #### ALLBG ####[facility] [id number] [place] [address] [place] AMERICASodium [Moles/Vol]134 mmol/GOzm356-893HouqoohalKettering Health Behavioral Medical [facility] on above:Order Comment: Specimen Type: ARTERIAL BLOOD SPECIMENOrdering Facility: [facility]Address: [address] [place], [place] [address]Performed By: #### ALLBG ####[facility] [id number] [place] [id number] [place] AMERICABase deficit (BldA) [Moles/Vol]-1 mmol/SOzuseu-6-1JmgjnfjgmKettering Health [facility]al [facility] on above:Order Comment: Specimen Type: ARTERIAL BLOOD SPECIMENOrdering Facility: [facility]Address: [address] [place] [phone] By: #### ALLBG ####[facility] LABCLIA [id number] [address] [address] [place] AMERICACalcium.ionized (Bld) [Mass/Vol]0.89 mmol/LLow1.08-1.30[facility] on above:Order Comment: Specimen Type: ARTERIAL BLOOD SPECIMENOrdering Facility: [facility]Address: [address] [place] [phone] By: #### ALLBG ####[facility] [id number] [place] [id number] [place] AMERICACalcium.ionized adjusted to pH 7.4 (BldA) [Moles/Vol]0.88 mmol/LLow 1.08-1.30[facility] on above:Order Comment: Specimen Type: ARTERIAL BLOOD SPECIMENOrdering Facility: [facility] Address: [address] [place], [place] [address]Performed By: #### ALLBG ####[facility] [id number] [place] [address] [place] AMERICACarboxyhemoglobin (BldA) [Mass fraction]1.4 %Normal0.0-2.0[facility] on above:Order Comment: Specimen Type: ARTERIAL BLOOD SPECIMENOrdering Facility: [facility]Address: [address] [place] [phone] Comment: Carboxyhemoglobin Reference Range for Smokers: 2.0-8.0%Performed By: #### ALLBG ####[facility] [id number] [place] [address] [place] AMERICACO2 (Bld) [Partial pressure]42 mm UzHhiizg15-78KzxmdtvinKettering Health Behavioral Medical Center on above:Order Comment: Specimen Type: ARTERIAL BLOOD SPECIMENOrdering Facility: [facility] Address: [address] [place] [phone] By: #### ALLBG ####[facility] LABCLIA [id number] [place] [address] [place] AMERICACO2 adjusted to patient's actual temperature (Bld) [Partial pressure]42 clSlXlifkr06-15YdogkasqxSelect Medical Specialty [facility] Comment on above:Order Comment: Specimen Type: ARTERIAL BLOOD SPECIMENOrdering Facility: [facility]Address: [address] [place], [place] [address]Performed By: #### ALLBG ####[facility] LABCLIA [id number] [place] [address] [place] COMMENTSUrgent Value: Ca, Ca(7.4)NormalSelect Medical Specialty Hospital - Cleveland-FairhillComment on above:Order Comment: Specimen Type: ARTERIAL BLOOD SPECIMENOrdering Facility: [facility]Address: [address] [place] [phone] Performed By: #### ALLBG ####[facility] LABCLIA [id number] [place] [address] [place] AMERICADATE/TIME [id number] [address] PMNormalSelect Medical Specialty Hospital - Cleveland-FairhillComment on above:Order Comment: Specimen Type: ARTERIAL BLOOD SPECIMENOrdering Facility: [facility]Address: [address] [place] [phone] By: #### ALLBG ####[facility] LABCLIA [id number] [place] [address] [place] AMERICAGlucose [Mass/Vol]122 mg/dLHigh 60-105[facility]-FairhillComselect specialty hospital-[facility] on above:Order Comment: Specimen Type: ARTERIAL BLOOD SPECIMENOrdering Facility: [facility]Address: [address] [place], [place] [address]Performed By: #### ALLBG ####[facility] LABCLIA [id number] [place] [id number] [place] AMERICAHCO3 (Bld) [Moles/Vol]24 mmol/EPeoclm28-51 [facility] on above:Order Comment: Specimen Type: ARTERIAL BLOOD SPECIMENOrdering Facility: [facility]Address: [address] [place], [place] [address]Performed By: #### ALLBG ####[facility] LABCLIA [id number] [facility] [id number] [place] [address] [place] AMERICAHematocrit (Bld) [Volume fraction]29.2 %Low 39.0-51.0[facility] on above:Order Comment: Specimen Type: ARTERIAL BLOOD SPECIMENOrdering Facility: [facility] Address: [address] [place], [place] [address]Performed By: #### ALLBG ####[facility] [id number] [place] [address] [place] AMERICAHemoglobin (Bld) [Mass/Vol]9.4 g/dLLow13.0-17.0[facility] on above:Order Comment: Specimen Type: ARTERIAL BLOOD SPECIMENOrdering Facility: [facility]Address: [address] [place], [place] [address]Performed By: #### ALLBG ####[facility] [id number] [facility] L [address] [place] [address] [place] AMERICALactate [Moles/Vol]0.9 mmol/L Normal0.5-2.2CSt. [facility] on above:Order Comment: Specimen Type: ARTERIAL BLOOD SPECIMENOrdering Facility: [facility] Address: [address] [place], [place] [address]Performed By: #### ALLBG ####[facility] [id number] [facility] L [address] [place] [address] [place] AMERICAMethemoglobin (Bld) [Mass fraction]0.9 %Normal0.0-1.5CSt. [facility] on above:Order Comment: Specimen Type: ARTERIAL BLOOD SPECIMENOrdering Facility: [facility]Address: [address] [facility], [place] [address]Dpmvfprcx By: #### ALLBG ####[facility] LABCLIA [id number] [address] [address] [place] OF AMERICANOTIFIED WHOMNCPP Stas NormalKettering Health Behavioral Medical Center on above:Order Comment: Specimen Type: ARTERIAL BLOOD SPECIMENOrdering Facility: [facility]Address: [address] [place] [phone] By: #### ALLBG ####[facility] LABCLIA [id number] [address] [address] [place] AMERICAOxygen (Bld) [Partial pressure]261 mm SmFtvq89-16 [facility] on above:Order Comment: Specimen Type: ARTERIAL BLOOD SPECIMENOrdering Facility: [facility]Address: [address] [place] [phone] By: #### ALLBG ####[facility] LABCLIA [id number] [address] [address] [place] AMERICAOxygen adjusted to patient's actual temperature (Bld) [Partial pressure]261 syMvVmth59-61YxzbuuccqKettering Health Behavioral Medical Center on above:Order Comment: Specimen Type: ARTERIAL BLOOD SPECIMENOrdering Facility: [facility]Address: [address] [place] [address] Performed By: #### ALLBG ####[facility] LABCLIA [id number] [address] [address] [place] AMERICAOxyhemoglobin (BldA) [Mass fraction]98 %Ccwnke84-32RrpxsvndqKettering Health Behavioral [facility] Center on above: Order Comment: Specimen Type: ARTERIAL BLOOD SPECIMENOrdering Facility: [facility]Address: [address] [place] [address] Performed By: #### ALLBG ####[facility] LABCLIA [id number] [address] [address] [place] AMERICApH (Bld)7.38 [pH]Normal7.35-7.45[facility] on above:Order Comment: Specimen Type: ARTERIAL BLOOD SPECIMENOrdering Facility: [facility]Address: [address] [place] [id number] By: #### ALLBG ####[facility]IA [id number] [facility]AK [address] [address] [place] AMERICApH adjusted to patient's actual temperature (Bld)7.62Wcqdes7.35-7.45[facility] on above: Order Comment: Specimen Type: ARTERIAL BLOOD SPECIMENOrdering Facility: [facility]Address: [address] [place] [phone] Performed By: #### ALLBG ####[facility]IA [id number] [place] [address] [place] AMERICAPotassium [Moles/Vol]5.8 mmol/LHigh3.5-5.0[facility] on above:Order Comment: Specimen Type: ARTERIAL BLOOD SPECIMENOrdering Facility: [facility]Address: [address] [place], [place] [address]Performed By: #### ALLBG ####[facility]IA [id number] [place] [address] [place] AMERICASodium [Moles/Vol]136 mmol/L Qepjxa101-261RmwfjznfiKettering Health [facility]al [facility] Center on above:Order Comment: Specimen Type: ARTERIAL BLOOD SPECIMENOrdering Facility: [facility] Address: [address] [place] [phone] By: #### ALLBG ####[facility] [id number] [place] [address] [place] AMERICABase deficit (BldA) [Moles/Vol]-1 mmol/BBlzcww-2-5DggmeqssuKettering Health [facility]al [facility] Center on above:Order Comment: Specimen Type: ARTERIAL BLOOD SPECIMENOrdering Facility: [facility]Address: [address] [place], [place] [address]Performed By: #### ALLBG ####[facility] LABCLIA [id number] [facility]ITALL[facility] AVENUEDES[facility] [address], [place] [address] [place] AMERICACalcium.ionized (Bld) [Mass/Vol] 0.94 mmol/LLow1.08-1.30[facility]-FairhillComment on above:Order Comment: Specimen Type: ARTERIAL BLOOD SPECIMENOrdering Facility: [facility]Address: [address] [place] [phone] By: #### ALLBG ####[facility] LABCLIA [id number] [address] [facility]ITALD [facility]ENTERK L [place], [place] [address] [place] AMERICACalcium.ionized adjusted to pH 7.4 (BldA) [Moles/Vol]0.93 mmol/LLow1.08-1.30[facility]-FairhillComment on above:Order Comment: Specimen Type: ARTERIAL BLOOD SPECIMENOrdering Facility: [facility]Address: [address] [place] [phone] Performed By: #### ALLBG ####[facility]IA [id number] [facility]D [facility]ENTERK [id number] [place] [address] [place] Carboxyhemoglobin (BldA) [Mass fraction]1.8 %Normal0.0-2.0[facility]-FairhillComselect specialty hospital-[facility] on above:Order Comment: Specimen Type: ARTERIAL BLOOD SPECIMENOrdering Facility: [facility]Address: [address] [place] [id number] Comment: Carboxyhemoglobin Reference Range for Smokers: 2.0-8.0%Performed By: #### ALLBG ####[facility]IA [id number] [facility]D [facility]ENTERK [id number] [place], [place] [id number] [place] AMERICACO2 (Bld) [Partial pressure]42 mm LnWjdies34-31GmybwbbsaSelect Medical Specialty [facility] Comment on above:Order Comment: Specimen Type: ARTERIAL BLOOD SPECIMENOrdering Facility: [facility]Address: [address] [place] [id number] By: #### ALLBG ####[facility] LABCLIA [id number] [place] [id number] [place] CO2 adjusted to patient's actual temperature (Bld) [Partial pressure]42 mmHg Dvpdzy43-50ZyscsktalKettering Health Behavioral Medical Center on above:Order Comment: Specimen Type: ARTERIAL BLOOD SPECIMENOrdering Facility: [facility] Address: [address] [place], [place] [address]Performed By: #### ALLBG ####[facility] LABCLIA [id number] [place] [address] [place] AMERICAGlucose [Mass/Vol]107 mg/dLHigh 60-105[facility] on above:Order Comment: Specimen Type: ARTERIAL BLOOD SPECIMENOrdering Facility: [facility]Address: [address] [place], [place] [address]Performed By: #### ALLBG ####[facility] LABCLIA [id number] [place] [address] [place] AMERICAHCO3 (Bld) [Moles/Vol]24 mmol/MAwtrij87-48 [facility] on above:Order Comment: Specimen Type: ARTERIAL BLOOD SPECIMENOrdering Facility: [facility]Address: [address] [place], [place] [address]Performed By: #### ALLBG ####[facility] LABCLIA [id number] [place] [address] [place] AMERICAHematocrit (Bld) [Volume fraction]29.7 %Low 39.0-51.0[facility] on above:Order Comment: Specimen Type: ARTERIAL BLOOD SPECIMENOrdering Facility: [facility] Address: [address] [place], [place] [address]Performed By: #### ALLBG ####[facility] LABCLIA [id number] [place] [id number] [place] AMERICAHemoglobin (Bld) [Mass/Vol]9.6 g/dLLow13.0-17.0[facility] on above:Order Comment: Specimen Type: ARTERIAL BLOOD SPECIMENOrdering Facility: [facility]Address: [address] [place], [place] [address]Odlrmkwsg By: #### ALLBG ####[facility] LABCLIA [id number] [facility]D [facility] L [address] [place] [address] [place] [facility] COUNTY HOSPITALLactate [Moles/Vol]0.9 mmol/L Normal0.5-2.2CSt. [facility] on above:Order Comment: Specimen Type: ARTERIAL BLOOD SPECIMENOrdering Facility: [facility] Address: [address] [place], [place] [address]Performed By: #### ALLBG ####[facility] LABCLIA [id number] [id number] [place] [address] STATES OF AMERICAMethemoglobin (Bld) [Mass fraction]0.5 %Normal0.0-1.5CSt. [facility] on above:Order Comment: Specimen Type: ARTERIAL BLOOD SPECIMENOrdering Facility: [facility]Address: [address] [place] [id number] By: #### ALLBG ####[facility] LABCLIA [id number] [place] [address], [place] [address] [place] AMERICAOxygen (Bld) [Partial pressure] 327 mm IkAkgh50-92NgncvttjcKettering Health [facility] on above:Order Comment: Specimen Type: ARTERIAL BLOOD SPECIMENOrdering Facility: [facility]Address: [address] [place] [phone] By: #### ALLBG ####[facility] LABCLIA [id number] [facility] L [address] [place] [address] [place] AMERICAOxygen adjusted to patient's actual temperature (Bld) [Partial pressure]327 wjOsGkvm42-24WfgzdkefvKettering Health Behavioral [facility] Center on above:Order Comment: Specimen Type: ARTERIAL BLOOD SPECIMENOrdering Facility: [facility]Address: [address] [place] [phone] By: #### ALLBG ####[facility] LABCLIA [id number] [address] [address] [place] AMERICAOxyhemoglobin (BldA) [Mass fraction]98 %Ioecbg85-20OhqfvnhtfSelect Medical Specialty Hospital - Cleveland-FairhillComment on above:Order Comment: Specimen Type: ARTERIAL BLOOD SPECIMENOrdering Facility: [facility]Address: [address] [place] [phone] By: #### ALLBG ####[facility] [id number] [place] [id number] [place] AMERICApH (Bld)7.37 [pH]Normal7.35-7.45[facility] on above:Order Comment: Specimen Type: ARTERIAL BLOOD SPECIMENOrdering Facility: [facility]Address: [address] [place] [address] Performed By: #### ALLBG ####[facility]IA [id number] [place] [address] [place] AMERICApH adjusted to patient's actual temperature (Bld)7.63Umqoom9.35-7.45[facility] Comment on above:Order Comment: Specimen Type: ARTERIAL BLOOD SPECIMENOrdering Facility: [facility]Address: [address] [place] [id number] By: #### ALLBG ####[facility] [id number] [place] [id number] [place] Potassium [Moles/Vol]5.9 mmol/LHigh3.5-5.0[facility] on above:Order Comment: Specimen Type: ARTERIAL BLOOD SPECIMENOrdering Facility: [facility]Address: [address] [place] [address] Performed By: #### ALLBG ####[facility] [id number] [address] [address] [place] AMERICASodium [Moles/Vol]134 mmol/AZxa274-635QcjwxgyjiKettering Health Behavioral Medical Center on above:Order Comment: Specimen Type: ARTERIAL BLOOD SPECIMENOrdering Facility: [facility]Address: [address] [place], [place] [address]Performed By: #### ALLBG ####[facility] LABCLIA [id number] [place], [place] [address] [place] AMERICABase deficit (BldA) [Moles/Vol]- 2 mmol/DPtmvmd-7-4JrxytoyphKettering Health Behavioral Medical Center on above:Order Comment: Specimen Type: ARTERIAL BLOOD SPECIMENOrdering Facility: [facility]Address: [address] [place], [place] [address]Performed By: #### ALLBG ####[facility] LABIA [id number] [place] [address] [place] AMERICACalcium.ionized (Bld) [Mass/Vol] 1.08 mmol/LNormal1.08-1.30[facility] on above:Order Comment: Specimen Type: ARTERIAL BLOOD SPECIMENOrdering Facility: [facility]Address: [address] [place], [place] [address]Performed By: #### ALLBG ####[facility] LABIA [id number] [place] [address] [place] AMERICACalcium.ionized adjusted to pH 7.4 (BldA) [Moles/Vol]1.06 mmol/LLow1.08-1.30[facility] on above:Order Comment: Specimen Type: ARTERIAL BLOOD SPECIMENOrdering Facility: [facility]Address: [address] [place] [id number] Performed By: #### ALLBG ####[facility] LABIA [id number] [place] [address] [place] Carboxyhemoglobin (BldA) [Mass fraction]1.6 %Normal0.0-2.0[facility] on above:Order Comment: Specimen Type: ARTERIAL BLOOD SPECIMENOrdering Facility: [facility]Address: [address] [place], [place] [address]Result Comment: Carboxyhemoglobin Reference Range for Smokers: 2.0-8.0%Performed By: #### ALLBG ####[facility] LABCLIA [id number] [place] [address] [place] AMERICACO2 (Bld) [Partial pressure]43 mm TiXysiyr13-97OxquxgzpdSelect Medical Specialty [facility] Comment on above:Order Comment: Specimen Type: ARTERIAL BLOOD SPECIMENOrdering Facility: [facility]Address: [address] [place], [place] [address]Performed By: #### ALLBG ####[facility] LABIA [id number] [place] [address] [place] CO2 adjusted to patient's actual temperature (Bld) [Partial pressure]43 mmHg Rllpnt00-02RtrbmejxhSelect Medical Specialty Hospital - Cleveland-FairhillComment on above:Order Comment: Specimen Type: ARTERIAL BLOOD SPECIMENOrdering Facility: [facility] Address: [address] [place], [place] [address]Performed By: #### ALLBG ####[facility] LABIA [id number] [place] [address] [place] AMERICACOMMENTSCritical Value: KNormal [facility] on above:Order Comment: Specimen Type: ARTERIAL BLOOD SPECIMENOrdering Facility: [facility]Address: [address] [place], [place] [address]Performed By: #### ALLBG ####[facility] LABCLIA [id number] [place] [id number] [place] OF AMERICADATE/TIME [id number] PMNormalKettering Health Behavioral Medical Center on above:Order Comment: Specimen Type: ARTERIAL BLOOD SPECIMENOrdering Facility: [facility]Address: [address] [place], [place] [address]Performed By: #### ALLBG ####[facility] LABCLIA [id number] [place] [address] [place] AMERICAGlucose [Mass/Vol]124 mg/sVHqep03-102SpocudlejKettering Health Behavioral Medical Center on above:Order Comment: Specimen Type: ARTERIAL BLOOD SPECIMENOrdering Facility: [facility]Address: [address] [place] [address] Performed By: #### ALLBG ####[facility] LABCLIA [id number] [address] [address] [place] OF AMERICAHCO3 (Bld) [Moles/Vol]23 mmol/IQbppbz33-01MdxbwncwrKettering Health Behavioral Medical Center on above:Order Comment: Specimen Type: ARTERIAL BLOOD SPECIMENOrdering Facility: [facility]Address: [address] [place], [place] [address]Performed By: #### ALLBG ####[facility] LABCLIA [id number] [place] [address] [place] AMERICAHematocrit (Bld) [Volume fraction]31.4 %Low39.0-51.0[facility] on above:Order Comment: Specimen Type: ARTERIAL BLOOD SPECIMENOrdering Facility: [facility]Address: [address] [place] [id number] By: #### ALLBG ####[facility] LABIA [id number] [address] [address] [place] AMERICAHemoglobin (Bld) [Mass/Vol]10.2 g/dLLow13.0-17.0[facility] on above:Order Comment: Specimen Type: ARTERIAL BLOOD SPECIMENOrdering Facility: [facility]Address: [address] [place] [id number] By: #### ALLBG ####[facility] LABIA [id number] [address] [address] [place] OF AMERICALactate [Moles/Vol]1.3 mmol/L Normal0.5-2.2CSt. [facility] on above:Order Comment: Specimen Type: ARTERIAL BLOOD SPECIMENOrdering Facility: [facility] Address: [address] [place], [place] [address]Performed By: #### ALLBG ####[facility] LABCLIA [id number] [place] [address] [place] AMERICAMethemoglobin (Bld) [Mass fraction]1.4 %Normal0.0-1.5CSt. [facility] Hospital on above:Order Comment: Specimen Type: ARTERIAL BLOOD SPECIMENOrdering Facility: [facility]Address: [address] [place], [place] [address]Performed By: #### ALLBG ####[facility] LABCLIA [id number] [address] OF TURKMENOTIFIED WHOMV. Lennox WINSTON ORSepideh WoodyKettering Health Behavioral Medical Center on above:Order Comment: Specimen Type: ARTERIAL BLOOD SPECIMENOrdering Facility: [facility] Address: [address] [place], [place] [address]Performed By: #### ALLBG ####[facility] LABCLIA [id number] [address] [address] [place] OF AMERICAOxygen (Bld) [Partial pressure]324 mm ZcPmfl05-05VquoigzvaKettering Health Behavioral Medical Center on above:Order Comment: Specimen Type: ARTERIAL BLOOD SPECIMENOrdering Facility: [facility] Address: [address] [place], [place] [address]Performed By: #### ALLBG ####[facility] LABCLIA [id number] [address] [address] [place] AMERICAOxygen adjusted to patient's actual temperature (Bld) [Partial pressure]324 vuOpJurq84-65NdsbvtpcqKettering Health Behavioral Medical Center on above:Order Comment: Specimen Type: ARTERIAL BLOOD SPECIMENOrdering Facility: [facility]Address: [address] [place], [place] [address]Performed By: #### ALLBG ####[facility] LABCLIA [id number] [place] [id number] [place] AMERICAOxyhemoglobin (BldA) [Mass fraction]97 %Cexwrg65-72FfftayeciSelect Medical Specialty Hospital - Cleveland-FairhillComment on above:Order Comment: Specimen Type: ARTERIAL BLOOD SPECIMENOrdering Facility: [facility]Address: [address] [place], [place] [address]Djeccdvds By: #### ALLBG ####[facility] LABCLIA [id number] [address] [address] [place] AMERICApH (Bld)7.35 [pH]Normal7.35-7.45[facility]-FairhillComselect specialty hospital-[facility] on above:Order Comment: Specimen Type: ARTERIAL BLOOD SPECIMENOrdering Facility: [facility]Address: [address] [place] [address] Performed By: #### ALLBG ####[facility] LABCLIA [id number] [place] [address] [place] AMERICApH adjusted to patient's actual temperature (Bld)7.93Mdjtla8.35-7.45[facility] Comment on above:Order Comment: Specimen Type: ARTERIAL BLOOD SPECIMENOrdering Facility: [facility]Address: [address] [place], [place] [address]Omokfqgnn By: #### ALLBG ####[facility] LABCLIA [id number] [address] [address] [place] Potassium [Moles/Vol]7.2 mmol/LCritically high3.5-5.0[facility] Comment on above:Order Comment: Specimen Type: ARTERIAL BLOOD SPECIMENOrdering Facility: [facility]Address: [address] [place], [place] [address]Rzejlkzkm By: #### ALLBG ####[facility] LABIA [id number] [place] [id number] [place] Sodium [Moles/Vol]126 mmol/MJqq826-229JebqxkqzaSelect Medical Specialty Hospital - Cleveland-FairhillComment on above:Order Comment: Specimen Type: ARTERIAL BLOOD SPECIMENOrdering Facility: [facility]Address: [address] [place] [address] Performed By: #### ALLBG ####[facility] [id number] [place] [address] [place] AMERICABase deficit (BldA) [Moles/Vol]-4 mmol/SJyf-2-8KmuovwunxKettering Health Behavioral Medical Center on above: Order Comment: Specimen Type: ARTERIAL BLOOD SPECIMENOrdering Facility: [facility]Address: [address] [place] [address] Performed By: #### ALLBG ####[facility] [id number] [place] [address] [place] Calcium.ionized (Bld) [Mass/Vol]1.28 mmol/LNormal1.08-1.30[facility] on above:Order Comment: Specimen Type: ARTERIAL BLOOD SPECIMENOrdering Facility: [facility]Address: [address] [place], [place] [address]Performed By: #### ALLBG ####[facility] [id number] [place] [address] [place] AMERICACalcium.ionized adjusted to pH 7.4 (BldA) [Moles/Vol]1.23 mmol/LNormal 1.08-1.30[facility] on above:Order Comment: Specimen Type: ARTERIAL BLOOD SPECIMENOrdering Facility: [facility] Address: [address] [place], [place] [address]Performed By: #### ALLBG ####[facility] [id number] [place] [address] [place] AMERICACarboxyhemoglobin (BldA) [Mass fraction]1.0 %Normal0.0-2.0[facility] on above:Order Comment: Specimen Type: ARTERIAL BLOOD SPECIMENOrdering Facility: [facility]Address: [facility] [place], [place] [address]Result Comment: Carboxyhemoglobin Reference Range for Smokers: 2.0-8.0%Performed By: #### ALLBG ####[facility] LABCLIA [id number] [facility]ENTERK [address] [address] [place] AMERICACO2 (Bld) [Partial pressure]42 mm RjNgrqtu09-65KatcdekmsSelect Medical Specialty Hospital - Cleveland-FairhillComselect specialty hospital-[facility] on above:Order Comment: Specimen Type: ARTERIAL BLOOD SPECIMENOrdering Facility: [facility] Address: [address] [place] [id number] By: #### ALLBG ####[facility] LABCLIA [id number] [facility]ENTERK [address] [address] [place] AMERICACO2 adjusted to patient's actual temperature (Bld) [Partial pressure]42 ocPvPgfnda18-79VjkmxrsfgSelect Medical Specialty [facility] Comment on above:Order Comment: Specimen Type: ARTERIAL BLOOD SPECIMENOrdering Facility: [facility]Address: [address] [place] [id number] By: #### ALLBG ####[facility] LABCLIA [id number] [place] [address] [place] Glucose [Mass/Vol]111 mg/sAEvoe89-249XplebtmkgSelect Medical Specialty Hospital - Cleveland-FairhillComselect specialty hospital-[facility] on above: Order Comment: Specimen Type: ARTERIAL BLOOD SPECIMENOrdering Facility: [facility]Address: [address] [place] [id number] Performed By: #### ALLBG ####[facility] LABCLIA [id number] [place] [id number] [place] AMERICAHCO3 (Bld) [Moles/Vol]22 mmol/TWoiylr60-15VpqrgiugpSelect Medical Specialty Hospital - Cleveland-FairhillComselect specialty hospital-[facility] on above:Order Comment: Specimen Type: ARTERIAL BLOOD SPECIMENOrdering Facility: [facility]Address: [address] [place] [id number] By: #### ALLBG ####[facility] LABCLIA [id number] [address] [address] [place] AMERICAHematocrit (Bld) [Volume fraction]48.1 %Sgugud58.0-51.0[facility] on above:Order Comment: Specimen Type: ARTERIAL BLOOD SPECIMENOrdering Facility: [facility]Address: [address] [place], [place] [address]Performed By: #### ALLBG ####[facility] LABCLIA [id number] [address] [address] [place] AMERICAHemoglobin (Bld) [Mass/Vol]15.7 g/mGAbxyqa75.0-17.0[facility] on above:Order Comment: Specimen Type: ARTERIAL BLOOD SPECIMENOrdering Facility: [facility]Address: [address] [place], [place] [address]Performed By: #### ALLBG ####[facility] LABIA [id number] [place] [address] [place] AMERICALactate [Moles/Vol]0.7 mmol/L Normal0.5-2.2CSt. [facility] on above:Order Comment: Specimen Type: ARTERIAL BLOOD SPECIMENOrdering Facility: [facility] Address: [address] [place], [place] [address]Performed By: #### ALLBG ####[facility] LABIA [id number] [place] [address] [place] AMERICAMethemoglobin (Bld) [Mass fraction]1.2 %Normal0.0-1.5CSt. [facility] Hospital on above:Order Comment: Specimen Type: ARTERIAL BLOOD SPECIMENOrdering Facility: [facility]Address: [address] [place] [id number] By: #### ALLBG ####[facility] LABCLIA [id number] [place] [id number] [place] AMERICAOxygen (Bld) [Partial pressure] 100 mm ItMgko31-14SukhbepmkKettering Health Behavioral Medical Center on above:Order Comment: Specimen Type: ARTERIAL BLOOD SPECIMENOrdering Facility: [facility]Address: [address] [place], [place] [address]Performed By: #### ALLBG ####[facility] LABCLIA [id number] [facility]ERK [place] [address] [place] AMERICAOxygen adjusted to patient's actual temperature (Bld) [Partial pressure]100 qoDbJayl44-71ZsewlymezKettering Health Behavioral Medical Center on above:Order Comment: Specimen Type: ARTERIAL BLOOD SPECIMENOrdering Facility: [facility]Address: [address] [place], [place] [address]Performed By: #### ALLBG ####[facility] LABCLIA [id number] [address] [address] [place] AMERICAOxyhemoglobin (BldA) [Mass fraction]95 %Oecuhx15-68KfnpgpwllSelect Medical Specialty Hospital - Cleveland-FairhillComment on above:Order Comment: Specimen Type: ARTERIAL BLOOD SPECIMENOrdering Facility: [facility]Address: [address] [place], [place] [address]Performed By: #### ALLBG ####[facility] LABIA [id number] [place] [address] [place] AMERICApH (Bld)7.33 [pH]Low7.35-7.45[facility] Cleveland-FairhillComment on above: Order Comment: Specimen Type: ARTERIAL BLOOD SPECIMENOrdering Facility: [facility]Address: [address] [place] [id number] Performed By: #### ALLBG ####[facility] LABCLIA [id number] [place] [id number] [place] AMERICApH adjusted to patient's actual temperature (Bld)7.33Low7.35-7.45[facility] Comment on above:Order Comment: Specimen Type: ARTERIAL BLOOD SPECIMENOrdering Facility: [facility]Address: [address] [place], [place] [address]Performed By: #### ALLBG ####[facility] LABIA [id number] [address] [address] [place] Potassium [Moles/Vol]4.9 mmol/LNormal3.5-5.0[facility]-FairhillComment on above:Order Comment: Specimen Type: ARTERIAL BLOOD SPECIMENOrdering Facility: [facility]Address: [address] [place] [id number] Performed By: #### ALLBG ####[facility] LABCLIA [id number] [address] [address] [place] AMERICASodium [Moles/Vol]133 mmol/UIpj015-392QsedsoamqSelect Medical Specialty Hospital [facility]-FairhillComselect specialty hospital-[facility] on above:Order Comment: Specimen Type: ARTERIAL BLOOD SPECIMENOrdering Facility: [facility]Address: [address] [place], [place] [address]Performed By: #### ALLBG ####[facility] LABCLIA [id number] [place] [address] [place] AMERICABasic metabolic 2000 panelon 51-79-0145Jqgrr gap [Moles/Vol]14 mmol/LNormal8-15[facility] Comment on above:Order Comment: Specimen Type: BLOOD SPECIMENOrdering Facility: [facility] Address:[address] [place] [address] Performed By: #### 32290-9, , 2776-11 ####[facility] LABCLIA [id number], [place] [address] [place] AMERICACalcium [Mass/Vol]9.6 mg/dLNormal8.5-10.2CSumma [facility] Comment on above:Order Comment: Specimen Type: BLOOD SPECIMENOrdering Facility: [facility] Address:[address] [place], [place] [id number] Performed By: #### 79977-6, 62286-8, 2776- ####[facility] LABCLIA [id number] VIL[place] [id number] [place] AMERICAChloride [Moles/Vol]102 mmol/ZZvatah05-704TqckpbteqSelect [facility] Comment on above:Order Comment: Specimen Type: BLOOD SPECIMENOrdering Facility: [facility] Address:[address] [place] [address] Performed By: #### 10140-3, , 2776-11 ####[facility] LABIA [id number][place] [address] [place] AMERICACO2 [Moles/Vol]20 mmol/UTvl09-57LcojtvwqzKettering Health Behavioral Medical Center on above:Order Comment: Specimen Type: BLOOD SPECIMENOrdering Facility: [facility] Address:[address] [place], [place] [address]Performed By: #### 13365-1, , 2776-11 ####[facility] LABIA [id number][place] [address] [place] Creatinine [Mass/Vol]1.55 mg/dLHigh0.73-1.22[facility] on above:Order Comment: Specimen Type: BLOOD SPECIMENOrdering Facility: [facility] Address:[address] [place], [place] [address]Performed By: #### 08737-1, , 2776-11 ####[facility] LABIA [id number] [place] Creatinine and Glomerular filtration rate.predicted panel (S/P/Bld)46 mL/min/1.73m???Low>=60[facility] on above:Order Comment: Specimen Type: BLOOD SPECIMENOrdering Facility: [facility] Address:[address] [place], [place] [address]Result Comment: Estimated Glomerular Filtration Rate (eGFR) is calculated using the 2020 CKD-EPI creatinine equation. This equation utilizes serum creatinine, sex, and age as parameters. The creatinine assay has traceable calibration to isotope dilution-mass spectrometry. Refer to KDIGO guidelines for clinical interpretation. In patients with unstable renal function, e.g. those with acute kidney injury, the eGFR may not accurately reflect actual GFR.Performed By: #### 92431-0, , 2776-11 ####[facility] LABIA [id number] VIL[place] [id number] [place] AMERICAGlucose [Mass/Vol]94 mg/dLNormal 74-99[facility] on above:Order Comment: Specimen Type: BLOOD SPECIMENOrdering Facility: [facility] Address:[address] [place], [place] [address]Result Comment: The [place] Diabetes Association (ADA) provides guidance for cutoff [...] unequivocal hyperglycemia, results should be confirmed by repeattesting. In a patient with classic symptoms of hyperglycemia or hyperglycemic crisis, random plasmaglucose results greater than or equal to 200 mg/dL meet the criteria for diagnosis of diabetes.Reference: Standards of Medical Care in Diabetes 2016, [place] Diabetes Association. Diabetes Care. 2016.39(Suppl 1).Performed By: #### 29175- 2, , 2776-11 ####[facility] LABIA [id number], [place] [address] [place] AMERICAPotassium [Moles/Vol] 5.3 mmol/LHigh3.7-5.1CSt. [facility] on above:Order Comment: Specimen Type: BLOOD SPECIMENOrdering Facility: [facility] Address:[address] [place], [place] [address]Performed By: #### 84859-3, , 2776-11 ####[facility] LABIA [id number] VILLE [id number] [place] AMERICASodium [Moles/Vol]136 mmol/L Lkpkxy273-989VcyzpwdqvKettering Health Behavioral Medical Center on above:Order Comment: Specimen Type: BLOOD SPECIMENOrdering Facility: [facility] Address:[address] [place], [place] [address]Performed By: #### 73573-7, , 2777-1 ####[facility] LABCLIA [id number] [address] [address] [place] AMERICAUrea nitrogen [Mass/Vol]31 mg/dL High9-24[facility] on above:Order Comment: Specimen Type: BLOOD SPECIMENOrdering Facility: [facility] Address:[address] [place], [place] [address]Performed By: #### 87198-1, 33039-7, 2776-1 ####[facility] LABCLIA [id number] VILLE [id number] [place] AMERICAAnion gap [Moles/Vol]12 mmol/L Normal8-15[facility] on above:Order Comment: Specimen Type: BLOOD SPECIMENOrdering Facility: [facility] Address:[address] [place], [place] [address]Performed By: #### 18810-7, 277-1, 21980-3 ####[facility] LABCLIA [id number][place] [address] [place] AMERICACalcium [Mass/Vol]9.5 mg/dLNormal 8.5-10.2CSt. [facility] on above:Order Comment: Specimen Type: BLOOD SPECIMENOrdering Facility: [facility] Address:[address] [place], [place] [address]Performed By: #### 01845-9, 277-1, 37465-7 ####[facility] LABCLIA [id number] VILLE [id number] [place] AMERICAChloride [Moles/Vol]103 mmol/L Fqzmrr14-482FibmsosntKettering Health [facility] Center on above:Order Comment: Specimen Type: BLOOD SPECIMENOrdering Facility: [facility] Address:[address] [place], [place] [address]Performed By: #### 17190-9, 2777-1, 97369-3 ####[facility] LABCLIA [id number] VILLE [id number] [place] AMERICACO2 [Moles/Vol]20 mmol/DFov89-14 [facility] on above:Order Comment: Specimen Type: BLOOD SPECIMENOrdering Facility: [facility] Address:[address] [place], [place] [address]Performed By: #### 84485-2, 2777-1, 86241-3 ####[facility] LABCLIA [id number] [address] [place] AMERICACreatinine [Mass/Vol]1.61 mg/dLHigh0.73-1.22 [facility] on above:Order Comment: Specimen Type: BLOOD SPECIMENOrdering Facility: [facility] Address:[address] [place], [place] [address]Performed By: #### 52220-1, 2777, 38084-2 ####[facility] LABIA [id number] OF [facility]PITALCreatinine and Glomerular filtration rate.predicted panel (S/P/Bld)44 mL/min/1.73m???Low>=60[facility] on above:Order Comment: Specimen Type: BLOOD SPECIMENOrdering Facility: [facility] Address:[address] [place], [place] [address]Result Comment: Estimated Glomerular Filtration Rate (eGFR) is [...] accurately reflect actual GFR. Performed By: #### 97456-6, 2777-1, 70553-5 ####[facility] LABCLIA [id number] [place] [address] [place] AMERICAGlucose [Mass/Vol]90 mg/cMIuyvuo57-04IzdmfnkzoKettering Health Behavioral Medical Center on above:Order Comment: Specimen Type: BLOOD SPECIMENOrdering Facility: [facility] Address:[address] [place], [place] [address]Result Comment: The [place] Diabetes Association (ADA) provides guidance for cutoff [...] unequivocal hyperglycemia, results should be confirmed by repeattesting. In a patient with classic symptoms of hyperglycemia or hyperglycemic crisis, random plasmaglucose results greater than or equal to 200 mg/dL meet the criteria for diagnosis of diabetes.Reference: Standards of Medical Care in Diabetes 2016, [place] Diabetes Association. Diabetes Care. 2016.39(Suppl 1).Performed By: #### 12434-1, 2777-, 26116-0 ####[facility] LABCLIA [id number][place] [address] [place] AMERICAPotassium [Moles/Vol]4.8 mmol/LNormal3.7-5.1 [facility] on above:Order Comment: Specimen Type: BLOOD SPECIMENOrdering Facility: [facility] Address:[address] [place], [place] [address]Performed By: #### 61336-8, 2777, 45647-8 ####[facility] [facility] LABCLIA [id number] VIL[place] [id number] [place] OF AMERICASodium [Moles/Vol]135 mmol/BHyp754-574CcmqcecynKettering Health Behavioral [facility] Center on above:Order Comment: Specimen Type: BLOOD SPECIMENOrdering Facility: [facility] Address:[address] [place], [place] [address]Performed By: #### 27793-2, 27705-11, 87699-3 ####[facility] LABCLIA [id number] [place] [id number] [place] AMERICAUrea nitrogen [Mass/Vol]35 mg/dLHigh9-24[facility] on above:Order Comment: Specimen Type: BLOOD SPECIMENOrdering Facility: [facility] Address:[address] [place], [place] [address]Performed By: #### 64652-0, 2777-1, 01640-2 ####[facility] LABCLIA [id number] [place] [address] [place] AMERICACASE MANAGEMon 51-42-4116AGFC MANAGEMNormal [facility]FairhillCB panel Auto (Bld)on 78-75-6586Mfctxunadln distribution width (RBC) [Ratio]14.3 %Lgtqdb05.5-15.0[facility] Comment on above:Order Comment: Specimen Type: BLOOD SPECIMENOrdering Facility: [facility] Address:[address] [place] [address] Performed By: #### 69458-4 ####[facility] LABCLIA [id number] [address] STATES OF [facility] Hematocrit (Bld) [Volume fraction]31.6 %Low39.0-51.0[facility] Comment on above:Order Comment: Specimen Type: BLOOD SPECIMENOrdering Facility: [facility] Address:[address] [place] [address] Performed By: #### 75439-1 ####[facility] LABCLIA [id number] [place] [address] [place] MCH (RBC) [Entitic mass]29.9 hkLscngf83.0-34.0[facility] on above:Order Comment: Specimen Type: BLOOD SPECIMENOrdering Facility: [facility] Address:[address] [place] [address] Performed By: #### 49692-2 ####[facility] LABCLIA [id number] [place] [address] [place] MCHC (RBC) [Mass/Vol]32.6 g/fIXgcace28.5-36.0[facility] on above:Order Comment: Specimen Type: BLOOD SPECIMENOrdering Facility: [facility] Address:[address] [place] [address] Performed By: #### 96858-0 ####[facility] LABIA [id number] [place] [address] [place] MCV (RBC) [Entitic vol]91.9 dZVfpfns02.0-100.0[facility] on above:Order Comment: Specimen Type: BLOOD SPECIMENOrdering Facility: [facility] Address:[address] [place] [address] Performed By: #### 48371-5 ####[facility] LABIA [id number] [place] [address] [place] Nucleated RBC (Bld) [#/Vol]10*3/uLNormal<0.01[facility] on above:Order Comment: Specimen Type: BLOOD SPECIMENOrdering Facility: [facility] Address:[address] [place] [address] Performed By: #### 06130-9 ####[facility] [id number] [place] [address] [place] Platelet mean volume (Bld) [Entitic vol]10.4 fLNormal9.0-12.7CSt. [facility] on above:Order Comment: Specimen Type: BLOOD SPECIMENOrdering Facility: [facility] Address:[address] [place], [place] [address]Performed By: #### 36010-7 ####[facility] LABIA [id number] [place] [address] [place] Platelets (Bld) [#/Vol]193 10*3/gGUjfyfn917-732RetmdvlkaKettering Health Behavioral Medical Center on above:Order Comment: Specimen Type: BLOOD SPECIMENOrdering Facility: [facility] Address:[address] [place] [address] Performed By: #### 10307-4 ####[facility] LABIA [id number] [place] [address] [place] RBC (Bld) [#/Vol]3.44 10*6/uLLow4.20-6.00[facility] on above:Order Comment: Specimen Type: BLOOD SPECIMENOrdering Facility: [facility] Address:[address] [place], [place] [address]Performed By: #### 25121-8 ####[facility] LABIA [id number] [place] [address] [place] AMERICAWBC (Bld) [#/Vol]20.68 10*3/uLHigh3.70-11.00[facility] on above:Order Comment: Specimen Type: BLOOD SPECIMENOrdering Facility: [facility] Address:[address] [place], [place] [address]Performed By: #### 07653-4 ####[facility] [id number] [place] [address] [place] AMERICAErythrocyte distribution width (RBC) [Ratio]14.2 %Peyndp58.5-15.0[facility] on above: Order Comment: Specimen Type: BLOOD SPECIMENOrdering Facility: [facility] Address:[address] [place], [place] [address]Performed By: #### 63615- 2 ####[facility] LABIA [id number] [place] [id number] [facility] MEDICAL CENTERHematocrit (Bld) [Volume fraction]48.7 %Swgwsv45.0-51.0[facility] on above:Order Comment: Specimen Type: BLOOD SPECIMENOrdering Facility: [facility] Address:[address] [place], [place] [address]Performed By: #### 71200- 2 ####[facility] LABIA [id number] [place] [address]ETHemoglobin (Bld) [Mass/Vol]16.0 g/lWDtcchu61.0-17.0[facility] on above:Order Comment: Specimen Type: BLOOD SPECIMENOrdering Facility: [facility] Address:[address] [place], [place] [address]Performed By: #### 86666-6 ####[facility] LABIA [id number] [address] (RBC) [Entitic mass]30.0 pg Gwecel22.0-34.0[facility] on above:Order Comment: Specimen Type: BLOOD SPECIMENOrdering Facility: [facility] Address:[address] [place], [place] [address]Performed By: #### 30804-9 ####[facility] LABIA [id number] [address]HC (RBC) [Mass/Vol]32.9 g/dL Neywsr10.5-36.0[facility] on above:Order Comment: Specimen Type: BLOOD SPECIMENOrdering Facility: [facility] Address:[address] [place], [place] [address]Performed By: #### 32566-2 ####[facility] LABIA [id number] [address]V (RBC) [Entitic vol]91.2 fL Fjvais81.0-100.0[facility] on above:Order Comment: Specimen Type: BLOOD SPECIMENOrdering Facility: [facility] Address:[address] [place], [place] [address]Performed By: #### 18754-9 ####[facility] LABCLIA [id number] [address] RBC (Bld) [#/Vol] 10*3/uLNormal<0.01[facility] on above:Order Comment: Specimen Type: BLOOD SPECIMENOrdering Facility: [facility] Address:[address] [place], [place] [address]Performed By: #### 64410-6 ####[facility] LABCLIA [id number] [place] [address] [place] AMERICAPlatelet mean volume (Bld) [Entitic vol]10.4 fLNormal9.0-12.7CSt. [facility] Hospital on above: Order Comment: Specimen Type: BLOOD SPECIMENOrdering Facility: [facility] Address:[address] [place], [place] [address]Performed By: #### 96761- 2 ####[facility] LABCLIA [id number] [place] [address] [place] AMERICAPlatelets (Bld) [#/Vol]168 10*3/lPLrrydv431-659UlqxdjydhKettering Health Behavioral Medical Center on above:Order Comment: Specimen Type: BLOOD SPECIMENOrdering Facility: [facility] Address:[address] [place], [place] [address]Performed By: #### 90794-8 ####[facility] LABIA [id number] [place] [address] [place] AMERICARBC (Bld) [#/Vol]5.34 10*6/uL Normal4.20-6.00[facility] on above:Order Comment: Specimen Type: BLOOD SPECIMENOrdering Facility: [facility] Address:[address] [place], [place] [address]Performed By: #### 63355-4 ####[facility] LABIA [id number] [place] [address] [place] AMERICAWBC (Bld) [#/Vol]8.84 10*3/uL Normal3.70-11.00[facility] on above:Order Comment: Specimen Type: BLOOD SPECIMENOrdering Facility: [facility] Address:[address] [place], [place] [address]Performed By: #### 09168-8 ####[facility] LABIA [id number] [place] [address] [place] AMERICAErythrocyte distribution width (RBC) [Ratio]14.2 %Cohkqi08.5-15.0[facility] on above: Order Comment: Specimen Type: BLOOD SPECIMENOrdering Facility: [facility] Address:[address] [place], [place] [address]Performed By: #### 34533- 2 ####[facility] LABIA [id number] [address]ETHematocrit (Bld) [Volume fraction]45.8 %Yfoief47.0-51.0[facility] on above:Order Comment: Specimen Type: BLOOD SPECIMENOrdering Facility: [facility] Address:[address] [place], [place] [address]Performed By: #### 32995- 2 ####[facility] LABIA [id number] [address] STATES AMERICAHemoglobin (Bld) [Mass/Vol]14.9 g/jEYeheff46.0-17.0[facility] on above:Order Comment: Specimen Type: BLOOD SPECIMENOrdering Facility: [facility] Address:[address] [place], [place] [address]Performed By: #### 48618-5 ####[facility] LABIA [id number] [place] [address] [place] AMERICAMCH (RBC) [Entitic mass]29.3 pg Lnmtzu18.0-34.0[facility] on above:Order Comment: Specimen Type: BLOOD SPECIMENOrdering Facility: [facility] Address:[address] [place], [place] [address]Performed By: #### 82925-1 ####[facility] LABIA [id number] [address]ETMCHC (RBC) [Mass/Vol]32.5 g/dL Kbljaw48.5-36.0[facility] on above:Order Comment: Specimen Type: BLOOD SPECIMENOrdering Facility: [facility] Address:[address] [place], [place] [address]Performed By: #### 96882-1 ####[facility] LABIA [id number] [address]ETMCV (RBC) [Entitic vol]90.2 fL Hgvptj25.0-100.0[facility] on above:Order Comment: Specimen Type: BLOOD SPECIMENOrdering Facility: [facility] Address:[address] [place], [place] [address]Performed By: #### 95963-3 ####[facility] LABIA [id number] [address]ucleated RBC (Bld) [#/Vol] 10*3/uLNormal<0.01[facility] on above:Order Comment: Specimen Type: BLOOD SPECIMENOrdering Facility: [facility] Address:[address] [place], [place] [address]Performed By: #### 51921-4 ####[facility] LABIA [id number] [place] [address] [place] AMERICAPlatelet mean volume (Bld) [Entitic vol]10.8 fLNormal9.0-12.7CSt. [facility] on above: Order Comment: Specimen Type: BLOOD SPECIMENOrdering Facility: [facility] Address:[address] [place], [place] [address]Performed By: #### 46967- 2 ####[facility] LABIA [id number] [place] [address] [facility] OF AMERICAPlatelets (Bld) [#/Vol]151 10*3/dTYfqvvc032-427TzjmgbrncKettering Health Behavioral Medical Center on above:Order Comment: Specimen Type: BLOOD SPECIMENOrdering Facility: [facility] Address:[address] [place], [place] [address]Performed By: #### 06748-8 ####[facility] LABCLIA [id number] [address] AMERICARBC (Bld) [#/Vol]5.08 10*6/uL Normal4.20-6.00[facility] on above:Order Comment: Specimen Type: BLOOD SPECIMENOrdering Facility: [facility] Address:[address] [place], [place] [address]Performed By: #### 53896-9 ####[facility] LABCLIA [id number] [address] AMERICAW (Bld) [#/Vol]8.62 10*3/uL Normal3.70-11.00[facility] on above:Order Comment: Specimen Type: BLOOD SPECIMENOrdering Facility: [facility] Address:[address] [place], [place] [address]Performed By: #### 12687-7 ####[facility] LABCLIA [id number] [place] [address] [place] PSJRBMJTDX35uu 00-05-2077RFR56Zdejsg [facility]-FairhillFibrinogen PPP-mCncon 17-51-9066Hojdvfptzw Coag (PPP) [Mass/Vol]238 mg/fMNpffjb100-800QvlnfaswdKettering Health Behavioral Medical Center on above:Order Comment: Specimen Type: BLOOD SPECIMENOrdering Facility: [facility] Address:[address] [place], [place] [address]Performed By: #### 3255- 7, 04223-0, 74943-9 ####[facility] LABCLIA [id number] [place] [address] [place] AMERICAFibrinogen Coag (PPP) [Mass/Vol]185 mg/nPHny504-223NmwsccfqqKettering Health [facility]al [facility] Center on above: Order Comment: Specimen Type: BLOOD SPECIMENOrdering Facility: [facility] Address:[address] [place], [place] [address]Performed By: #### 3255- 7, 25263-0, 09429-2 ####[facility] LABIA [id number] [place] [address] [place] AMERICAGas and Carbon monoxide panel (BldV)on 26-40-7451QVIW DEFICIT, VENOUS-6 mmol/GYtn-8-0IiytachawKettering Health Behavioral Medical Center on above:Order Comment: Specimen Type: VENOUS BLOOD SPECIMENOrdering Facility: [facility] Address: [address] [place], [place] [address]Performed By: #### 97276-5 ####[facility] LABIA [id number] [address] STATES OF AMERICACalcium.ionized (Bld) [Mass/Vol]1.15 mmol/LNormal1.08-1.30[facility] on above:Order Comment: Specimen Type: VENOUS BLOOD SPECIMENOrdering Facility: [facility] Address: [address] [place], [place] [address]Performed By: #### 71908-3 ####[facility] LABIA [id number] [address] STATES OF AMERICACalcium.ionized adjusted to pH 7.4 (BldA) [Moles/Vol]1.06 mmol/LLow 1.08-1.30[facility] on above:Order Comment: Specimen Type: VENOUS BLOOD SPECIMENOrdering Facility: [facility] Ad dress: [address] [place], [place] [address]Performed By: #### 49323-3 ####[facility] LABIA [id number] [place] [address] [place] AMERICACarboxyhemoglobin (BldV) [Mass fraction]1.1 %Normal0.0-2.0[facility] on above:Order Comment: Specimen Type: VENOUS BLOOD SPECIMENOrdering Facility: [facility] Address: [address] [place], [place] [address]Result Comment: Carboxyhemoglobin Reference Range for Smokers: 2.0-8.0%Performed By: #### 86897- 4 ####[facility] LABCLIA [id number] [place] [address] [place] AMERICACO2 (BldV) [Partial pressure]49 mm[Hg]Zyfect26-68YgahtlqbnKettering Health Behavioral Medical Center on above:Order Comment: Specimen Type: VENOUS BLOOD SPECIMENOrdering Facility: [facility] Address: [address] [place], [place] [address]Performed By: #### 24231-6 ####[facility] LABCLIA [id number] [place] [address] [place] AMERICAGlucose [Mass/Vol]202 mg/aZHeag65-390EwxwayvoqKettering Health Behavioral [facility] Center on above:Order Comment: Specimen Type: VENOUS BLOOD SPECIMENOrdering Facility: [facility] Address: [address] [place], [place] [address]Performed By: #### 54341-5 ####[facility] LABCLIA [id number] [place] [address] [place] AMERICAHCO3 (Bld) [Moles/Vol] 21 mmol/LByj45-90AmantznrvKettering Health [facility]al [facility] Center on above:Order Comment: Specimen Type: VENOUS BLOOD SPECIMENOrdering Facility: [facility] Address: [address] [place], [place] [address]Performed By: #### 22216-6 ####[facility] LABCLIA [id number] [place] [address] [place] AMERICAHematocrit (Bld) [Volume fraction]31.7 %Low39.0-51.0[facility] on above: Order Comment: Specimen Type: VENOUS BLOOD SPECIMENOrdering Facility: [facility] Address: [address] [place], [place] [address]Performed By: #### 66607-9 ####[facility] LABCLIA [id number] [place] [address] [place] [facility] HOSPITALLactate [Moles/Vol]7.3 mmol/LHigh0.5-2.2CSt. [facility] on above:Order Comment: Specimen Type: VENOUS BLOOD SPECIMENOrdering Facility: [facility] Address: [address] [place], [place] [address]Performed By: #### 71851-9 ####[facility] LABIA [id number] [address] STATES OF AMERICAMethemoglobin (Bld) [Mass fraction]0.6 %Normal0.0-1.5CSt. [facility] on above: Order Comment: Specimen Type: VENOUS BLOOD SPECIMENOrdering Facility: [facility] Address: [address] [place], [place] [address]Performed By: #### 18249-4 ####[facility] LABIA [id number] [place] [address] [place] AMERICAOxygen (BldV) [Partial pressure]39 mm[Hg]Zyvbjr15-49XsjhconrpKettering Health [facility]al [facility] Center on above:Order Comment: Specimen Type: VENOUS BLOOD SPECIMENOrdering Facility: [facility] Address: [address] [place], [place] [address]Performed By: #### 07355-2 ####[facility] LABCLIA [id number] [place] [id number] [place] AMERICAOxygen saturation in Venous blood60 %Hmhzxi04-98FilryyizbKettering Health Behavioral Medical Center on above:Order Comment: Specimen Type: VENOUS BLOOD SPECIMENOrdering Facility: [facility] Address: [address] [place], [place] [address]Performed By: #### 61033-2 ####[facility] LABCLIA [id number] [place] [address] [place] AMERICAOxyhemoglobin (BldV) [Mass fraction]59 %Nri09-55PzgtfyqvvKettering Health Behavioral [facility] Center on above:Order Comment: Specimen Type: VENOUS BLOOD SPECIMENOrdering Facility: [facility] Address: [address] [place], [place] [address]Performed By: #### 89107-7 ####[facility] LABCLIA [id number] [place] [address] [place] AMERICApH (BldV)7.25 [pH]Low 7.32-7.42[facility] on above:Order Comment: Specimen Type: VENOUS BLOOD SPECIMENOrdering Facility: [facility] Ad dress: [address] [place], [place] [address]Performed By: #### 73056-6 ####[facility] LABIA [id number] [place] [address] [place] AMERICASodium [Moles/Vol]139 mmol/L Uvyfzo596-179VemytkxpcKettering Health Behavioral [facility] Center on above:Order Comment: Specimen Type: VENOUS BLOOD SPECIMENOrdering Facility: [facility] Ad dress: [address] [place], [place] [address]Performed By: #### 11523-4 ####[facility] LABIA [id number] [place] [address] [place] AMERICABASE DEFICIT, VENOUS-4 mmol/LLow -2-0[facility] on above:Order Comment: Specimen Type: VENOUS BLOOD SPECIMENOrdering Facility: [facility] Address: [address] [place], [place] [address]Performed By: #### 20693-1 ####[facility] LABIA [id number] [place] [address] [place] AMERICACalcium.ionized (Bld) [Mass/Vol]1.17 mmol/LNormal 1.08-1.30[facility] on above:Order Comment: Specimen Type: VENOUS BLOOD SPECIMENOrdering Facility: [facility] Ad dress: [address] [place], [place] [address]Performed By: #### 74905-5 ####[facility] LABIA [id number] [place] [address] [place] AMERICACalcium.ionized adjusted to pH 7.4 (BldA) [Moles/Vol]1.09 mmol/LNormal1.08-1.30[facility] Comment on above:Order Comment: Specimen Type: VENOUS BLOOD SPECIMENOrdering Facility: [facility] Address: [address] [place], [place] [address]Performed By: #### 68636-2 ####[facility] [id number] [place] [address] [place] Carboxyhemoglobin (BldV) [Mass fraction]1.0 %Normal0.0-2.0[facility]-FairhillComment on above:Order Comment: Specimen Type: VENOUS BLOOD SPECIMENOrdering Facility: [facility] Address: [address] [place], [place] [address]Result Comment: Carboxyhemoglobin Reference Range for Smokers: 2.0-8.0%Performed By: #### 44153-9 ####[facility] [id number] [place] [address] [place] AMERICACO2 (BldV) [Partial pressure]51 mm[Hg]Ellscd47-69FcaxgoavhSelect Medical Specialty Hospital - Cleveland-FairhillComment on above:Order Comment: Specimen Type: VENOUS BLOOD SPECIMENOrdering Facility: [facility] Address: [address] [place], [place] [address]Performed By: #### 41967-0 ####[facility] LABIA [id number] [place] [address] [place] AMERICACO2 adjusted to patient's actual temperature (BldV) [Partial pressure]47 rwUdJysndl89-76KjelhlyzvSelect Medical Specialty Hospital - Cleveland-FairhillComment on above:Order Comment: Specimen Type: VENOUS BLOOD SPECIMENOrdering Facility: [facility] Address: [address] [place], [place] [address]Performed By: #### 45988-3 ####[facility] LABCLIA [id number] [place] [address] [place] AMERICAHCO3 (Bld) [Moles/Vol] 23 mmol/OFbu89-63TflskxeviKettering Health Behavioral Medical Center on above:Order Comment: Specimen Type: VENOUS BLOOD SPECIMENOrdering Facility: [facility] Address: [address] [place], [place] [address]Performed By: #### 01939-3 ####[facility] [id number] [place] [address] [place] AMERICAHematocrit (Bld) [Volume fraction]35.1 %Low39.0-51.0[facility] on above: Order Comment: Specimen Type: VENOUS BLOOD SPECIMENOrdering Facility: [facility] Address: [address] [place], [place] [address]Performed By: #### 66597-3 ####[facility] [id number] [place] [address] [place] AMERICAHemoglobin (Bld) [Mass/Vol]11.4 g/dLLow13.0-17.0[facility] on above:Order Comment: Specimen Type: VENOUS BLOOD SPECIMENOrdering Facility: [facility] Address: [address] [place], [place] [address]Performed By: #### [id number] ####[facility] [id number] [place] [address] [place] AMERICALactate [Moles/Vol]4.4 mmol/LHigh0.5-2.2CSt. [facility] on above:Order Comment: Specimen Type: VENOUS BLOOD SPECIMENOrdering Facility: [facility] Address: [address] [place], [place] [address]Performed By: #### [id number] ####[facility] [id number] [place] [address] [place] AMERICAMethemoglobin (Bld) [Mass fraction]0.7 %Normal0.0-1.5CSumma Health Akron CampusComment on above: Order Comment: Specimen Type: VENOUS BLOOD SPECIMENOrdering Facility: [facility] Address: [address] [place], [place] [address]Performed By: #### 61435-0 ####[facility] LABCLIA [id number] [place] [address] [place] AMERICAOxygen (BldV) [Partial pressure]35 mm[Hg]Ecdite97-24OnamxjbypSelect Medical Specialty Hospital - Cleveland-FairhillComment on above:Order Comment: Specimen Type: VENOUS BLOOD SPECIMENOrdering Facility: [facility] Address: [address] [place], [place] [address]Performed By: #### 31411-2 ####[facility] LABCLIA [id number] [place] [address] [place] AMERICAOxygen adjusted to patient's actual temperature (BldV) [Partial pressure]31 szYbEiw45-37DpfhqgsblSelect Medical Specialty Hospital - Cleveland-FairhillComment on above:Order Comment: Specimen Type: VENOUS BLOOD SPECIMENOrdering Facility: [facility] Address: [address] [place], [place] [address]Performed By: #### [id number] ####[facility] LABCLIA [id number] [place] [address] [place] OF AMERICAOxygen saturation in Venous blood56 %Tus06-82FzwbcwguvSelect Medical Specialty Hospital [facility] Comment on above:Order Comment: Specimen Type: VENOUS BLOOD SPECIMENOrdering Facility: [facility] Address: [address] [place], [place] [address]Performed By: #### 19910-5 ####[facility] LABCL[facility] [id number] [place] [address] [place] Oxyhemoglobin (BldV) [Mass fraction]55 %Bfx04-35DrcmkefycSelect Medical Specialty Hospital [facility] Comment on above:Order Comment: Specimen Type: VENOUS BLOOD SPECIMENOrdering Facility: [facility] Address: [address] [place], [place] [address]Performed By: #### 49314-9 ####[facility] LABIA [id number] [place] [address] [place] pH (BldV)7.27 [pH]Low7.32-7.42[facility] on above:Order Comment: Specimen Type: VENOUS BLOOD SPECIMENOrdering Facility: [facility] Address: [address] [place], [place] [address]Performed By: #### 33136-0 ####[facility] LABIA [id number] [place] [address] [place] AMERICApH adjusted to patient's actual temperature (BldV)7.30Low7.32-7.42[facility] Comment on above:Order Comment: Specimen Type: VENOUS BLOOD SPECIMENOrdering Facility: [facility] Address: [address] [place], [place] [address]Performed By: #### 45975-1 ####[facility] LABIA [id number] [place] [address] [place] Potassium [Moles/Vol]5.6 mmol/LHigh3.5-5.0[facility] on above:Order Comment: Specimen Type: VENOUS BLOOD SPECIMENOrdering Facility: [facility] Address: [address] [place] [address] Performed By: #### 41068-9 ####[facility] LABIA [id number] [place] [address] [place] BASE DEFICIT, VENOUS-1 mmol/ENxeyzk-6-4GbqotsiwwKettering Health [facility]al [facility] on above:Order Comment: Specimen Type: VENOUS BLOOD SPECIMENOrdering Facility: [facility] Address: [address] [place] [address] Performed By: #### 25896-1 ####[facility] LABIA [id number] [place] [id number] [place] Calcium.ionized (Bld) [Mass/Vol]1.10 mmol/LNormal1.08-1.30[facility] on above:Order Comment: Specimen Type: VENOUS BLOOD SPECIMENOrdering Facility: [facility] Address: [address] [place], [place] [address]Performed By: #### 74987-9 ####[facility] [id number] [place] [address] [place] AMERICACalcium.ionized adjusted to pH 7.4 (BldA) [Moles/Vol]1.05 mmol/LLow 1.08-1.30[facility] on above:Order Comment: Specimen Type: VENOUS BLOOD SPECIMENOrdering Facility: [facility] Ad dress: [address] [place], [place] [address]Performed By: #### 16669-6 ####[facility] LABIA [id number] [address] STATES OF [facility] COUNTY HOSPITALCarboxyhemoglobin (BldV) [Mass fraction]1.3 %Normal0.0-2.0[facility] on above:Order Comment: Specimen Type: VENOUS BLOOD SPECIMENOrdering Facility: [facility] Address: [address] [place], [place] [address]Result Comment: Carboxyhemoglobin Reference Range for Smokers: 2.0-8.0%Performed By: #### 39340- 4 ####[facility] LABIA [id number] [place] [address] [place] AMERICACO2 (BldV) [Partial pressure]48 mm[Hg]Ongrdo07-59AlhrsrdpsKettering Health Behavioral Medical Center on above:Order Comment: Specimen Type: VENOUS BLOOD SPECIMENOrdering Facility: [facility] Address: [address] [place], [place] [address]Performed By: #### 95144-5 ####[facility] LABIA [id number] [place] AV[place]45[place]FQSTBHM, [place] [address] [place] AMERICACO2 adjusted to patient's actual temperature (BldV) [Partial pressure]48 vpDbTvmwwb09-11 [facility] on above:Order Comment: Specimen Type: VENOUS BLOOD SPECIMENOrdering Facility: [facility] Address: [address] [place], [place] [id number] By: #### 27069-5 ####[facility] LABCLIA [id number] [place] [address] [place] AMERICACOMMENTSCritical Value: KNAdams [facility] on above:Order Comment: Specimen Type: VENOUS BLOOD SPECIMENOrdering Facility: [facility] Address: [address] [place], [place] [address]Performed By: #### 19835-7 ####[facility] LABCL[facility] [id number] [place] [id number] [place] OF AMERICADATE/TIME [id number] PMNAdams County Regional Medical Center on above:Order Comment: Specimen Type: VENOUS BLOOD SPECIMENOrdering Facility: [facility] Address: [address] [place], [place] [address] Performed By: #### 57042-6 ####[facility] LABCL[facility] [id number] [place] [id number] [place] Glucose [Mass/Vol]122 mg/qKLluc42-125HumxdhhjgKettering Health Behavioral [facility] on above: Order Comment: Specimen Type: VENOUS BLOOD SPECIMENOrdering Facility: [facility] Address: [address] [place], [place] [id number] By: #### 33555-0 ####[facility] LABCLIA [id number] [place] [id number] [place] OF AMERICAHCO3 (Bld) [Moles/Vol] 25 mmol/ZRmhvws62-75LnqnmvcnqKettering [facility]al [facility] on above:Order Comment: Specimen Type: VENOUS BLOOD SPECIMENOrdering Facility: [facility] Address: [address] [place], [place] [address]Performed By: #### 57724-7 ####[facility] LABIA [id number] [place] [address] [place] AMERICAHematocrit (Bld) [Volume fraction]31.7 %Low39.0-51.0[facility] on above: Order Comment: Specimen Type: VENOUS BLOOD SPECIMENOrdering Facility: [facility] Address: [address] [place], [place] [address]Performed By: #### 51775-0 ####[facility] LABIA [id number] [address] STATES OF AMERICAHemoglobin (Bld) [Mass/Vol]10.3 g/dLLow13.0-17.0[facility] on above:Order Comment: Specimen Type: VENOUS BLOOD SPECIMENOrdering Facility: [facility] Address: [address] [place], [place] [address]Performed By: #### 64634-5 ####[facility] LABIA [id number] [address] OF AMERICALactate [Moles/Vol]1.1 mmol/LNormal0.5-2.2CSt. [facility] on above:Order Comment: Specimen Type: VENOUS BLOOD SPECIMENOrdering Facility: [facility] Address: [address] [place], [place] [address]Performed By: #### 73070-3 ####[facility] LABIA [id number] [place] [address] [place] AMERICAMethemoglobin (Bld) [Mass fraction]1.0 %Normal0.0-1.5CSt. [facility] Hospital on above: Order Comment: Specimen Type: VENOUS BLOOD SPECIMENOrdering Facility: [facility] Address: [address] [place], [place] [address]Performed By: #### 54098-8 ####[facility] LABIA [id number] [place] [address] [place] [facility] OF AMERICANOTIFIED WHOMV. Cardamone RN ORSepideh WoodyKettering Health Behavioral Medical Center on above:Order Comment: Specimen Type: VENOUS BLOOD SPECIMENOrdering Facility: [facility] Address: [address] [place], [place] [address]Performed By: #### 45392-8 ####[facility] LABCLIA [id number] [address] [address] [place] OF AMERICAOxygen (BldV) [Partial pressure]53 mm[Hg]Lyel88-31WfflmrqldKettering Health Behavioral Medical Center on above:Order Comment: Specimen Type: VENOUS BLOOD SPECIMENOrdering Facility: [facility] Address: [address] [place], [place] [address]Performed By: #### 98140-4 ####[facility] LABCLIA [id number] [address] [address] [place] AMERICAOxygen adjusted to patient's actual temperature (BldV) [Partial pressure]53 uqGaJzst38-70SzcyrmfycKettering Health Behavioral Medical Center on above:Order Comment: Specimen Type: VENOUS BLOOD SPECIMENOrdering Facility: [facility] Address: [address] [place], [place] [address]Performed By: #### 27946-3 ####[facility] LABCLIA [id number] [address] [address] [place] AMERICAOxygen saturation in Venous blood85 %Emlnfq95-82ToiymbzikKettering Health Behavioral Medical Center on above:Order Comment: Specimen Type: VENOUS BLOOD SPECIMENOrdering Facility: [facility] Address: [address] [place], [place] [address]Performed By: #### 62607-2 ####[facility] LABCLIA [id number] [place] [id number] [place] AMERICAOxyhemoglobin (BldV) [Mass fraction]83 %Etmmzf19-09DovwbatnqK[facility] on above:Order Comment: Specimen Type: VENOUS BLOOD SPECIMENOrdering Facility: [facility] Address: [address] [place], [place] [address]Performed By: #### 21011-2 ####[facility] LABCLIA [id number] [place] [address] [place] AMERICApH (BldV)7.33 [pH]Normal7.32-7.42[facility] on above:Order Comment: Specimen Type: VENOUS BLOOD SPECIMENOrdering Facility: [facility] Address: [address] [place] [address] Performed By: #### 44478-2 ####[facility] LABCLIA [id number] [place] [address] [place] pH adjusted to patient's actual temperature (BldV)7.62Yhhoil0.32-7.42[facility] on above:Order Comment: Specimen Type: VENOUS BLOOD SPECIMENOrdering Facility: [facility] Address: [address] [place], [place] [address]Performed By: #### 61386-0 ####[facility] LABIA [id number] [place] [address] [place] AMERICAPotassium [Moles/Vol]7.4 mmol/LCritically high3.5-5.0[facility] on above:Order Comment: Specimen Type: VENOUS BLOOD SPECIMENOrdering Facility: [facility] Address: [address] [place], [place] [address]Performed By: #### 42981-0 ####[facility] LABIA [id number] [place] [address] [place] AMERICASodium [Moles/Vol]127 mmol/XYzp889-130HyfuiloxfKettering Health Behavioral Medical Center on above:Order Comment: Specimen Type: VENOUS BLOOD SPECIMENOrdering Facility: [facility] Address: [address] [place] [address] Performed By: #### 82927-1 ####[facility] LABIA [id number] [place] [address] [place] INTRAOPERATIVE ECHO PREon 92-79-9979XEURTHMMYGMTLI ECHO PRENormalSelect Medical Specialty Hospital - [facility]-FairhillMagnesium SerPl-mCncon 94-95-8199Dlbsshanl [Mass/Vol]2.3 mg/dL Normal1.7-2.3CSt. [facility] Hospital on above:Order Comment: Specimen Type: BLOOD SPECIMENOrdering Facility: [facility] Address:[address] [place], [place] [address]Performed By: #### 80181-6, 01099-6, 2777-1 ####[facility] LABCLIA [id number] [address] [place] AMERICAMagnesium [Mass/Vol]2.2 mg/dL Normal1.7-2.3CSt. [facility] Hospital on above:Order Comment: Specimen Type: BLOOD SPECIMENOrdering Facility: [facility] Address:[address] [place], [place] [address]Performed By: #### 87938-7, 2777-1, 73243-1 ####[facility] LABCLIA [id number] [address] [place] OF AMERICANUTRITIONon 58-05-3647BCSLXLVEQ NormalSelect Medical Specialty Hospital - [facility]-FairhillOPERATIVE NOon 55-36-0899VAQLWLSLF NONormal [facility]-FairhillPT panel Coag (PPP)on 11-03-7044GDZ Coag (PPP) [Relative time]1.2 {INR}Normal0.9-1.3CSt. [facility] Hospital on above: Order Comment: Specimen Type: BLOOD SPECIMENOrdering Facility: [facility] Address:[address] [place] [address]Ijyqlh Comment: Vitamin K Antagonist (VKA) Therapeutic Range: INR 2 to 3 (Target INR of 2.5)Note: For patients treated with VKA drugs, such as warfarin, the [employer] 2012 Guideline recommends a therapeutic INR range of 2 to 3 (target INR of 2.5). This recommendation includes high-risk patients with antiphospholipid syndrome with previous arterial or venous thromboembolism, current-generation mechanical or bioprosthetic aortic heart valve replacement.Note: Patients with mechanical aortic valve replacement and additional risk factors for thromboembolic events (atrialfibrillation, previous thromboembolism, LV dysfunction, hypercoagulable conditions) or an older gene ration mechanical AVR (i.e., ball in-Cage) or any mechanical MVR should have a INR therapeutic range of 2.5 to 3.5 (target INR of 3).Es MORA, et al. Chest 2012, 141:7S-47SNishalmas RA, et al. [facility] 2017, 70: 252-289Performed By: #### 3255-7, 46982-7, 97916-4 ####[facility] [id number] [address] [address] [place] OF AMERICAPT Coag (PPP) [Time]12.2 sNormal9.7-13.0[facility] on above:Order Comment: Specimen Type: BLOOD SPECIMENOrdering Facility: [facility] Address:[address] [place], [place] [address]Performed By: #### 3255- 7, 42541-2, 84499-9 ####[facility] [id number] [address] [address] [place] STATES OF [facility] COUNTY HOSPITALINR Coag (PPP) [Relative time]1.6 {INR}High0.9-1.3CSt. [facility] Hospital on above: Order Comment: Specimen Type: BLOOD SPECIMENOrdering Facility: [facility] Address:[address] [place], [place] [address]Result Comment: Vitamin K Antagonist (VKA) Therapeutic Range: INR 2 to 3 (Target INR of 2.5)Note: For patients treated with VKA drugs, such as warfarin, the [employer] 2012 Guideline recommends a therapeutic INR range of 2 to 3 (target INR of 2.5). This recommendation includes high-risk patients with antiphospholipid syndrome with previous arterial or venous thromboembolism, current-generation mechanical or bioprosthetic aortic heart valve replacement.Note: Patients with mechanical aortic valve replacement and additional risk factors for thromboembolic events (atrialfibrillation, previous thromboembolism, LV dysfunction, hypercoagulable conditions) or an older gene ration mechanical AVR (i.e., ball in-Cage) or any mechanical MVR should have a INR therapeutic range of 2.5 to 3.5 (target INR of 3).Elisabettt GH, et al. Chest 2012, 141:7S-47SNishimura RA, et al. [facility] 2017, 70: 252-289Performed By: #### 3255-7, 55710-5, 43894-1 ####[facility] LABCL[facility] [id number] [place] [address] [place] AMERICAPT Coag (PPP) [Time]16.7 sHigh9.7-13.0[facility] on above:Order Comment: Specimen Type: BLOOD SPECIMENOrdering Facility: [facility] Address:[address] [place], [place] [address]Performed By: #### 3255- 7, 94211-3, 33051-1 ####[facility] LABIA [id number] [place] [address] [place] AMERICAPTT, ANTICOAGULANT THERAPYon 42-72-7144pJLZ Coag (PPP) [Time]61.9 sHigh23.0-32.4 [facility] on above:Order Comment: Specimen Type: BLOOD SPECIMENOrdering Facility: [facility] Address:[address] [place], [place] [address]Performed By: #### PTTAC ####[facility] LABCL[facility] [id number] [place] [address] [place] AMERICAPhosphate SerPl-mCncon 90-84-1155Ngxilcuyf [Mass/Vol]4.2 mg/dLNormal 2.7-4.8CSt. [facility] on above:Order Comment: Specimen Type: BLOOD SPECIMENOrdering Facility: [facility] Address:[address] [place], [place] [address]Performed By: #### 75154-6, 49093-2, 2777-1 ####[facility] LABCL[facility] [id number] [address] STATES OF AMERICAPhosphate [Mass/Vol]4.9 mg/dLHigh 2.7-4.8CSt. [facility] on above:Order Comment: Specimen Type: BLOOD SPECIMENOrdering Facility: [facility] Address:[address] [place], [place] [address]Performed By: #### 88904-1, 2777-1, 86299-6 ####[facility] LABCL[facility] [id number] [address] [place] AMERICAPlatelets Auto (Bld) [#/Vol]on 93-23-3064Rajjgoyku (Bld) [#/Vol]180 10*3/mCTzzwcd239-139UuecdlrrdKettering Health Behavioral Medical Center on above:Order Comment: Specimen Type: BLOOD SPECIMENOrdering Facility: [facility] Address:[address] [place], [place] [address]Performed By: #### 777-3 ####[facility] [id number] [address] STATES OF [facility] Platelets (Bld) [#/Vol]58 10*3/uBAdv915-163YwxclbywsKettering Health [facility]al [facility] Center on above:Order Comment: Specimen Type: BLOOD SPECIMENOrdering Facility: [facility] Address:[address] [place], [place] [address]Result Comment: No clot detected.Performed By: #### 777-3 ####[facility]IA [id number] [address] STATES OF AMERICATHROMBOGRAPH PANELon 52-69-6089Drzj angle TEG (Bld) [Angle]62.4 degrees Yletdi89.0-74.0[facility] on above:Order Comment: Specimen Type: BLOOD SPECIMENOrdering Facility: [facility] Address:[address] [place], [place] [address]Performed By: #### TEGPNP ####[facility] [id number] [place] [address] [place] AMERICAClot Lysis 30 Min post maximum clot amplitude TEG (Bld) [Length fraction]0.0 %Normal0.0-8.0[facility] on above:Order Comment: Specimen Type: BLOOD SPECIMENOrdering Facility: [facility] Address:[address] [place], [place] [address]Performed By: #### TEGPNP ####[facility] [id number] [address] STATES [place] Clotting time TEG (Bld)2.3 minutesLow4.0-10.0[facility] on above:Order Comment: Specimen Type: BLOOD SPECIMENOrdering Facility: [facility] Address:[address] [place] [address] Performed By: #### TEGPNP ####[facility] [id number] [address] OF [place] Coagulation index TEG Qn (Bld)1.2Normal-4.6-3.2CSt. [facility] Hospital on above:Order Comment: Specimen Type: BLOOD SPECIMENOrdering Facility: [facility] Address:[address] [place], [place] [address]Result Comment: The Coagulation Index, a secondary parameter, is labeled by the switchboard mechanic as for research use only and is used per the switchboard mechanic's instructions. Its performance characteristics were determined by [facility] Pathology and Laboratory Medicine [place] in a manner consistent with CLIA requirements. This test has not been cleared by the U.S. Food andDrug Administration.Performed By: #### TEGPNP ####[facility]IA [id number] [address] STATES OF [facility] COUNTY HOSPITALMaximum clot firmness TEG (Bld) [Length]54.1 mmNormal 51.0-75.0[facility] on above:Order Comment: Specimen Type: BLOOD SPECIMENOrdering Facility: [facility] Address:[address] [place], [place] [address]Performed By: #### TEGPNP ####[facility] LABCL[facility] [id number] [address] STATES OF [facility] COUNTY HOSPITALThromboelastography after addtion of heparinase panel (Bld)NormalKettering Health Behavioral Medical Center on above:Order Comment: Specimen Type: BLOOD SPECIMENOrdering Facility: [facility] Address:[address] [place], [place] [address]Result Comment: A thromboelastograph (TEG) study was performed using citrate-anticoagulated whole [...] measure of fibrinolysis, is normal. This is i ndicative of normal fibrinolytic function. The coagulation index (CI), a measure of hemostasis function, is within the normal range. The CI is a calculated parameter based on the other TEG results.Viscoelastic testing is not intended for the monitoring of anticoagulation or antiplatelet medicationsor the diagnosis and/or management of platelet disorders and/or coagulopathies but may be useful for guiding blood product utilization in emergency and urgent (OR) circumstances when routine coagulation and cell blood counts are not available in a timely manner.Performed By: #### TEGPNP ####[facility]CL[facility] [id number] [place] [address] [place] AMERICATYPE + SCREENon 93-77-4650NQCULkpbacVqlfynqdcSt. [facility] Hospital on above:Order Comment: Specimen Type: BLOOD SPECIMENOrdering Facility: [facility] Address:[address] [place], [place] [address]Performed By: #### TSCR ####[facility] BLOOD BANKCLIA [id number] [address] STATES HERK[facility] MEMORIAL HOSPITALHISTORICAL AB SCR STATUSNegative NormalKettering Health Behavioral Medical Center on above:Order Comment: Specimen Type: BLOOD SPECIMENOrdering Facility: [facility] Address:[address] [place], [place] [address]Performed By: #### TSCR ####[facility] BLOOD BANKCLIA [id number] [address] [address] [place] OF AMERICARh Nom (Bld)PositiveNormalCSt. [facility] Hospital on above: Order Comment: Specimen Type: BLOOD SPECIMENOrdering Facility: [facility] Address:[address] [place], [place] [address]Performed By: #### TSCR ####[facility] BLOOD BANKCLIA [id number] [place] [id number] [place] OF AMERICATYPE AND SCREEN LPNGGAVTUQ42/11/2024 23:59Normal [facility] on above:Order Comment: Specimen Type: BLOOD SPECIMENOrdering Facility: [facility] Address:[address] [place], [place] [address]Performed By: #### TSCR ####[facility] BLOOD BANKCLIA [id number] [address] [address] [place] OF AMERICAXR CHEST 1V FRONTAL PORTon 07-77-8611JI CHEST 1V FRONTAL PORTNormal [facility]FairhillXR CHEST 2V FRONTAL/LATon 28-53-1897NZ CHEST 2V FRONTAL/LATNormalCSumma Health Akron CampusaPTT PPPon 60-40-2502dRJB Coag (PPP) [Time]42.2 sHigh23.0-32.4CSt. [facility] on above:Order Comment: Specimen Type: BLOOD SPECIMENOrdering Facility: [facility] Address:[address] [place], [place] [address]Performed By: #### 3255- 7, 79707-6, 60880-4 ####[facility]CL[facility] [id number] [place] [id number] [place] AMERICAaPTT Coag (PPP) [Time]31.6 pMgquog82.0-32.4CSt. [facility] on above:Order Comment: Specimen Type: BLOOD SPECIMENOrdering Facility: [facility] Address:[address] [place], [place] [address]Performed By: #### 3255- 7, 44204-2, 45154-8 ####[facility] LABCL[facility] [id number] [place] [address] [place] AMERICABasic metabolic 2000 panelon 67-94-1565Cpbmu gap [Moles/Vol]10 mmol/LNormal8-15[facility]-FairhillComselect specialty hospital-[facility] on above:Order Comment: Specimen Type: BLOOD SPECIMENOrdering Facility: [facility] Address:[address] [place], [place] [address]Performed By: #### 23977-2, 2777-1, 14981-7 ####[facility] LABCL[facility] [id number][place] [address] [place] AMERICACalcium [Mass/Vol]9.3 mg/dLNormal8.5-10.2CSumma Health Akron CampusComment on above:Order Comment: Specimen Type: BLOOD SPECIMENOrdering Facility: [facility] Address:[address] [place], [place] [address]Performed By: #### 51569-2, 2777-1, 08725-0 ####[facility] LABCLIA [id number][place] [address] [place] OF AMERICAChloride [Moles/Vol]103 mmol/TSmuwbf78-885VejgkstgnSelect Medical Specialty Hospital - Cleveland-FairhillComselect specialty hospital-flint on above:Order Comment: Specimen Type: BLOOD SPECIMENOrdering Facility: [facility] Address:[address] [place], [place] [address]Performed By: #### 78541-9, 2777-1, 16080-6 ####[facility] LABCLIA [id number] VILLE [id number] [place] OF AMERICACO2 [Moles/Vol]21 mmol/KBbl28-26OttnmbylrSelect [facility]ty [facility] Comment on above:Order Comment: Specimen Type: BLOOD SPECIMENOrdering Facility: [facility] Address:[address] [place], [place] [address] Performed By: #### 76945-2, 2777-1, 49102-8 ####[facility] LABIA [id number] [address] [place] AMERICACreatinine [Mass/Vol]1.51 mg/dLHigh0.73-1.22[facility] Comment on above:Order Comment: Specimen Type: BLOOD SPECIMENOrdering Facility: [facility] Address:[address] [place] [address] Performed By: #### 51788-3, 2777-1, 50089-5 ####[facility] [id number][place] [address] [place] AMERICACreatinine and Glomerular filtration rate.predicted panel (S/P/Bld)48 mL/min/1.73m???Low>=60[facility]-FairhillComment on above:Order Comment: Specimen Type: BLOOD SPECIMENOrdering Facility: [facility] Address:[address] [place], [place] [address]Result Comment: Estimated Glomerular Filtration Rate (eGFR) is calculated using the 2020 CKD-EPI creatinine equation. This equation utilizes serum creatinine, sex, and age as parameters. The creatinine assay has traceable calibration to isotope dilution-mass spectrometry. Refer to KDIGO guidelines for clinical interpretation. In patients with unstable renal function, e.g. those with acute kidney injury, the eGFR may not accurately reflect actual GFR.Performed By: #### 73484-0, 2777-1, 47071-2 ####[facility]KER[facility] [id number] [address] [place] AMERICAGlucose [Mass/Vol]101 mg/dLHigh 74-99[facility]hillComment on above:Order Comment: Specimen Type: BLOOD SPECIMENOrdering Facility: [facility] Address:[address] [id number] Comment: The [place] Diabetes Association (ADA) provides guidance for cutoff [...] unequivocal hyperglycemia, results should be confirmed by repeattesting. In a patient with classic symptoms of hyperglycemia or hyperglycemic crisis, random plasmaglucose results greater than or equal to 200 mg/dL meet the criteria for diagnosis of diabetes.Reference: Standards of Medical Care in Diabetes 2016, [place] Diabetes Association. Diabetes Care. 2016.39(Suppl 1).Performed By: #### 93562- 9, 2777-, 48979-4 ####[facility] LABCLIA [id number][place] [address] [place] AMERICAPotassium [Moles/Vol] 4.6 mmol/LNormal3.7-5.1CSt. [facility] on above:Order Comment: Specimen Type: BLOOD SPECIMENOrdering Facility: [facility] Address:[address] [place], [place] [address]Performed By: #### 88305-2, 27705-11, ####[facility] LABCLIA [id number][place] [address] [place] AMERICASodium [Moles/Vol]134 mmol/LLow 136-144[facility] on above:Order Comment: Specimen Type: BLOOD SPECIMENOrdering Facility: [facility] Address:[address] [place], [place] [address]Performed By: #### 22097-1, 27705-11, 86367-3 ####[facility] LABIA [id number] VILLE [id number] [place] AMERICAUrea nitrogen [Mass/Vol]30 mg/dL High9-24[facility] on above:Order Comment: Specimen Type: BLOOD SPECIMENOrdering Facility: [facility] Address:[address] [place], [place] [address]Performed By: #### 78790-7, 27705-11, 52221-3 ####[facility] LABCLIA [id number] [address] [place] [facility] HOSPITALCBC panel Auto (Bld)on 06-17-2024 Erythrocyte distribution width (RBC) [Ratio]14.2 %Qhhrwq51.5-15.0[facility]hillComment on above:Order Comment: Specimen Type: BLOOD SPECIMENOrdering Facility: [facility] Address:[address] [place], [place] [address]Performed By: #### 26521-8 ####[facility] LABIA [id number] [place] [address] [place] [facility] COUNTY HOSPITALHematocrit (Bld) [Volume fraction]45.1 %Punqpu68.0-51.0[facility] on above:Order Comment: Specimen Type: BLOOD SPECIMENOrdering Facility: [facility] Address:[address] [place], [place] [address]Performed By: #### 39605-2 ####[facility] LABIA [id number] [place] [address] [place] Hemoglobin (Bld) [Mass/Vol]15.0 g/cEZxjzrx04.0-17.0[facility] Comment on above:Order Comment: Specimen Type: BLOOD SPECIMENOrdering Facility: [facility] Address:[address] [place] [address] Performed By: #### 01455-1 ####[facility] LABIA [id number] [place] [address] [place] MCH (RBC) [Entitic mass]29.6 trQawwvc19.0-34.0[facility] on above:Order Comment: Specimen Type: BLOOD SPECIMENOrdering Facility: [facility] Address:[address] [place] [address] Performed By: #### 70258-7 ####[facility] [id number] [address] [place] MCHC (RBC) [Mass/Vol]33.3 g/pWGzlykl36.5-36.0[facility] on above:Order Comment: Specimen Type: BLOOD SPECIMENOrdering Facility: [facility] Address:[address] [place] [address] Performed By: #### 27539-7 ####[facility] LABIA [id number] [place] [address] [place] MCV (RBC) [Entitic vol]89.1 oHCseyup59.0-100.0[facility] on above:Order Comment: Specimen Type: BLOOD SPECIMENOrdering Facility: [facility] Address:[address] [place] [address] Performed By: #### 28276-2 ####[facility] LABIA [id number] [place] [address] [place] Nucleated RBC (Bld) [#/Vol]10*3/uLNormal<0.01[facility] on above:Order Comment: Specimen Type: BLOOD SPECIMENOrdering Facility: [facility] Address:[address] [place] [address] Performed By: #### 70757-4 ####[facility] LABIA [id number] [place] [address] [place] Platelet mean volume (Bld) [Entitic vol]10.1 fLNormal9.0-12.7CSt. [facility] Hospital on above:Order Comment: Specimen Type: BLOOD SPECIMENOrdering Facility: [facility] Address:[address] [place], [place] [address]Performed By: #### 71057-5 ####[facility] LABCLIA [id number] [place] [address] [place] Platelets (Bld) [#/Vol]152 10*3/qHLojmhl817-821NlshfvqjoKettering Health Behavioral Medical Center on above:Order Comment: Specimen Type: BLOOD SPECIMENOrdering Facility: [facility] Address:[address] [place] [address] Performed By: #### 74351-9 ####[facility] LABCLIA [id number] [place] [address] [place] RBC (Bld) [#/Vol]5.06 10*6/uLNormal4.20-6.00[facility] on above:Order Comment: Specimen Type: BLOOD SPECIMENOrdering Facility: [facility] Address:[address] [place], [place] [address]Performed By: #### 81920-8 ####[facility] LABCLIA [id number] [place] [address] [place] AMERICAWBC (Bld) [#/Vol]7.75 10*3/uLNormal3.70-11.00[facility] on above:Order Comment: Specimen Type: BLOOD SPECIMENOrdering Facility: [facility] Address:[address] [place], [place] [address]Performed By: #### 41969-3 ####[facility] LABCLIA [id number] [address] STATES OF AMERICACONSULT PROGon 87-29-4611DOILMSJ PROGNormalSelect Medical Specialty Hospital [facility]-FairhillMagnesium SerPl-mCncon 80-40-5710Pcmuekckb [Mass/Vol]2.3 mg/dLNormal1.7-2.3CSt. [facility] on above:Order Comment: Specimen Type: BLOOD SPECIMENOrdering Facility: [facility] Address:[address] [place], [place] [address]Performed By: #### 43848- 9, 2777-1, 70849-6 ####[facility] LABCLIA [id number] [place] [address] [place] OF AMERICAOUTSIDE SURG PATH SLIDE REVIEWon 33-44-3665GFUCRNTN 1:NormalKettering Health Behavioral Medical Center on above:Order Comment: Specimen Type: FORMALIN-FIXED PARAFFIN-EMBEDDED TISSUE SPECIMENOrdering Facility: APOutside Review Address: , ,Result Comment: Part C of this case has been reviewed by Dr. Garrett, a member of the [facility], who agrees with this assessment.Addendum electronically signed by Charlette Cordero MD on 06/23/2024 at 1:44 PMPerformed By: #### [id number] ####[facility] LABIA [id number] [address] [address] [place] OF AMERICACASE REPORTNoWright-Patterson Medical Center on above:Order Comment: Specimen Type: FORMALIN-FIXED PARAFFIN-EMBEDDED TISSUE SPECIMENOrdering Facility: APOutside Review Address: , ,Result Comment: Surgical Pathology Report Case: [id number] Provider: Micha Avina MD Collected: 06/17/2024 02:47 PMOrdering Location: [facility] Received: 06/17/2024 02:47PM [facility] LaboratoryPathologist: Charlette Cordero MDSpecimen: Slide(s), 9 SLIDES [id number] By: #### [id number] ####[facility] LABIA [id number] [address] [address] [place] STATES OF [facility] COUNTY HOSPITALFINAL DIAGNOSISNoWright-Patterson Medical Center on above:Order Comment: Specimen Type: FORMALIN-FIXED PARAFFIN-EMBEDDED TISSUE SPECIMENOrdering Facility: APOutside Review Address: , ,Result Comment: [facility], [place], [place]; [phone] (06/05/2024)1. [place] h, biopsy (A): - Gastric oxyntic and antral mucosa with mild reactive epithelial changes and focal mild chronic inflammation.- No definitive morphologic evidence of Helicobacter pylori organisms.2. Colon, transverse, polyp, biopsy (B): - Hyperplastic polyp.3. Rectum, mass, biopsy (C): - Invasive moderately differentiated adenocarcinoma. Performed By: #### [id number] ####[facility] LABCLIA [id number] [place] [address] [place] AMERICAFINAL PERFORMING LABNormalClevelMarymount Hospital on above: Order Comment: Specimen Type: FORMALIN-FIXED PARAFFIN-EMBEDDED TISSUE SPECIMENOrdering Facility: [facility] Review Address: , ,Result Comment: Diagnostic interpretation performed at [facility], [address] [place] [address] CLIA# [id number] Director: Jeffrey Tolentino M.D. Performed By: #### [id number] ####[facility] LABCLIA [id number] [place] [address] [place] PTT, ANTICOAGULANT THERAPYon 41-56-6231fTJD Coag (PPP) [Time]63.6 sHigh23.0-32.4 [facility]hillComment on above:Order Comment: Specimen Type: BLOOD SPECIMENOrdering Facility: [facility] Address:[address] [place], [place] [address]Performed By: #### PTTAC ####[facility] LABIA [id number] [place] [address] [place] AMERICAPhosphate SerPl-mCncon 35-58-4482Twcnghwpq [Mass/Vol]4.7 mg/dLNormal 2.7-4.8CSt. [facility] on above:Order Comment: Specimen Type: BLOOD SPECIMENOrdering Facility: [facility] Address:[address] [place], [place] [address]Performed By: #### 02153-4, 2777-1, 11305-4 ####[facility] LABIA [id number] [address] [place] AMERICABasic metabolic 2000 panelon 58-81-8372Aueov gap [Moles/Vol]11 mmol/LNormal8-15[facility] Comment on above:Order Comment: Specimen Type: BLOOD SPECIMENOrdering Facility: [facility] Address:[address] [place], [place] [address] Performed By: #### 43667-8, 31335-4, 3015-3, 97357-5, 2777-1 ####[facility] LABCLIA [id number] [place] [id number] [place] AMERICACalcium [Mass/Vol]9.2 mg/dLNormal8.5-10.2CSt. [facility] on above:Order Comment: Specimen Type: BLOOD SPECIMENOrdering Facility: [facility] Address:[address] [place], [place] [address]Performed By: #### 90428-7, 59484-7, 3015-3, 91220-5, 2777-1 ####[facility] LABCLIA [id number] [place] [address] [place] AMERICAChloride [Moles/Vol]103 mmol/L Qwlqis00-161FhpyzilxvKettering Health Behavioral Medical Center on above:Order Comment: Specimen Type: BLOOD SPECIMENOrdering Facility: [facility] Address:[address] [place], [place] [address]Performed By: #### 06388-6, 44488-7, 3015-3, 95240-5, 277-1 ####[facility] LABCLIA [id number] [place] [address] [place] AMERICACO2 [Moles/Vol]21 mmol/VZjq59-17KnyhqggojKettering Health Behavioral Medical Center on above:Order Comment: Specimen Type: BLOOD SPECIMENOrdering Facility: [facility] Address:[address] [place], [place] [address]Performed By: #### 86166-7, 21441-6, 3015-3, 03612-9, 2777-1 ####[facility] LABCLIA [id number] [place] [address] [place] AMERICACreatinine [Mass/Vol] 1.62 mg/dLHigh0.73-1.22[facility] on above:Order Comment: Specimen Type: BLOOD SPECIMENOrdering Facility: [facility] Address:[address] [place], [place] [address]Fwnzsghig By: #### 40322-3, 98375-7, 3016-3, 96454-8, 2777-1 ####[facility] LABCLIA [id number] [address] [address] [place] AMERICACreatinine and Glomerular filtration rate.predicted panel (S/P/Bld)44 mL/min/1.73m???Low>=60 [facility] on above:Order Comment: Specimen Type: BLOOD SPECIMENOrdering Facility: [facility] Address:[address] [place] [address]Goldhl Comment: Estimated Glomerular Filtration Rate (eGFR) is calculated using the 2020 CKD-EPI creatinine equation. This equation utilizes serum creatinine, sex, and age as parameters. The creatinine assay has traceable calibration to isotope dilution-mass spectrometry. Refer to KDIGO guidelines for clinical interpretation. In patients with unstable renal function, e.g. those with acute kidney injury, the eGFR may not accurately reflect actual GFR.Performed By: #### 01488-6, 03229-1, 6-3, 09864-3, 2777-1 ####[facility] LABCLIA [id number] [address] [address] [place] AMERICAGlucose [Mass/Vol]94 mg/dLNormal 74-99[facility] on above:Order Comment: Specimen Type: BLOOD SPECIMENOrdering Facility: [facility] Address:[address] [place] [address]Gapdyx Comment: The [place] Diabetes Association (ADA) provides guidance for cutoff [...] unequivocal hyperglycemia, results should be confirmed by repeattesting. In a patient with classic symptoms of hyperglycemia or hyperglycemic crisis, random plasmaglucose results greater than or equal to 200 mg/dL meet the criteria for diagnosis of diabetes.Reference: Standards of Medical Care in Diabetes 2016, [place] Diabetes Association. Diabetes Care. 2016.39(Suppl 1).Performed By: #### 51550- 2, 16425-9, 6-3, 70551-0, 7-1 ####[facility] LABCLIA [id number] [place] [address] [place] Potassium [Moles/Vol]4.8 mmol/LNormal3.7-5.1CSt. [facility] on above:Order Comment: Specimen Type: BLOOD SPECIMENOrdering Facility: [facility] Address:[address] [place], [place] [address]Performed By: #### 61006-2, , 3015-3, 11822-7, 2776-1 ####[facility] LABCLIA [id number] [address]ETSodium [Moles/Vol]135 mmol/LLzu725-121EbcapdzagKettering Health Behavioral Medical Center on above:Order Comment: Specimen Type: BLOOD SPECIMENOrdering Facility: [facility] Address:[address] [place] [address] Performed By: #### 67604-0, , 3015-3, 54041-4, 2776-1 ####[facility] LABCLIA [id number] [place] [address] [place] AMERICAUrea nitrogen [Mass/Vol]29 mg/dLHigh9-24[facility] on above:Order Comment: Specimen Type: BLOOD SPECIMENOrdering Facility: [facility] Address:[address] [place], [place] [address]Performed By: #### 78986-2, , 3015-3, 60678-7, 7-1 ####[facility] LABCLIA [id number] [address] OF H[facility] COUNTY HOSPITALCBC panel Auto (Bld)on 06-16-2024 Erythrocyte distribution width (RBC) [Ratio]13.9 %Yinffk57.5-15.0[facility] on above:Order Comment: Specimen Type: BLOOD SPECIMENOrdering Facility: [facility] Address:[address] [place], [place] [address]Performed By: #### 88250-7, 76299-2 ####[facility] LABCLIA [id number] [address] ST[address]ETHematocrit (Bld) [Volume fraction]47.6 %Iebgdk74.0-51.0 [facility] on above:Order Comment: Specimen Type: BLOOD SPECIMENOrdering Facility: [facility] Address:[address] [place], [place] [address]Performed By: #### 34030-0, 47893-9 ####[facility] LABIA [id number] [address]ETHemoglobin (Bld) [Mass/Vol]15.2 g/cRDxsfor98.0-17.0[facility] on above:Order Comment: Specimen Type: BLOOD SPECIMENOrdering Facility: [facility] Address:[address] [place], [place] [address]Performed By: #### 62602-2, 05819-9 ####[facility] LABIA [id number] [address] (RBC) [Entitic mass]29.3 miIeduwo52.0-34.0[facility] on above:Order Comment: Specimen Type: BLOOD SPECIMENOrdering Facility: [facility] Address:[address] [place], [place] [address]Performed By: #### 79248-7, 51995-2 ####[facility] LABIA [id number] [address] (RBC) [Mass/Vol]31.9 g/aQJnvtiu97.5-36.0[facility] Comment on above:Order Comment: Specimen Type: BLOOD SPECIMENOrdering Facility: [facility] Address:[address] [place] [address] Performed By: #### 06391-4, 88314-7 ####[facility] LABCLIA [id number] [place] [address] [place] MCV (RBC) [Entitic vol]91.9 kIGeqckn79.0-100.0[facility]-FairhillComment on above:Order Comment: Specimen Type: BLOOD SPECIMENOrdering Facility: [facility] Address:[address] [place] [address] Performed By: #### 60982-6, 54107-8 ####[facility] LABCLIA [id number] [address] [place] Nucleated RBC (Bld) [#/Vol]10*3/uLNormal<0.01[facility]-FairhillComment on above:Order Comment: Specimen Type: BLOOD SPECIMENOrdering Facility: [facility] Address:[address] [place] [address] Performed By: #### 90097-2, 23312-7 ####[facility] LABCLIA [id number] [place] [address] [place] Platelet mean volume (Bld) [Entitic vol]10.8 fLNormal9.0-12.7CSumma Health Akron CampusComselect specialty hospital-[facility]int on above:Order Comment: Specimen Type: BLOOD SPECIMENOrdering Facility: [facility] Address:[address] [place], [place] [address]Performed By: #### 09367-2, 59543-2 ####[facility] LABCLIA [id number] [place] [address] [place] AMERICAPlatelets (Bld) [#/Vol]165 10*3/tULggnfx756-006FsgijlmjqSelect Medical [facility] Comment on above:Order Comment: Specimen Type: BLOOD SPECIMENOrdering Facility: [facility] Address:[address] [place] [address] Performed By: #### 06640-6, 44261-5 ####[facility] LABCLIA [id number] [facility] [address] [place] RBC (Bld) [#/Vol]5.18 10*6/uLNormal4.20-6.00[facility] on above:Order Comment: Specimen Type: BLOOD SPECIMENOrdering Facility: [facility] Address:[address] [place], [place] [address]Performed By: #### 49607-4, 45954-9 ####[facility] LABCLIA [id number] [place] [address] [place] AMERICAWBC (Bld) [#/Vol]7.76 10*3/uLNormal3.70-11.00[facility] Hospitalment on above:Order Comment: Specimen Type: BLOOD SPECIMENOrdering Facility: [facility] Address:[address] [place], [place] [address]Performed By: #### 34860- 3, 17180-5 ####[facility] LABCLIA [id number] [place] [address] [place] AMERICACONSULT PROGon 73-06-8751DIKYYFE PROGNormalSelect Medical Specialty Hospital - Cleveland-FairhillHbA1c (Bld)on 06-16-2024 Average glucose Estimated from glycated hemoglobin (Bld) [Mass/Vol]123 mg/dL NormalKettering Health Behavioral Medical Center on above:Order Comment: Specimen Type: BLOOD SPECIMENOrdering Facility: [facility] Address:[address] [place], [place] [address]Result Comment: eAG: (Estimated average glucose) is a calculated value from HgbA1c and is client relations representative of the average blood glucose level in the last 2-3 month period.Performed By: #### 35194-4, 45449-8 ####[facility] LABCLIA [id number] [place] [address] [place] UWKQUVPYpE9m (Bld) [Mass fraction]5.9 % High4.3-5.6CSt. [facility] on above:Order Comment: Specimen Type: BLOOD SPECIMENOrdering Facility: [facility] Address:[address] [place], [place] [address]Result Comment: [place] Diabetes Association guidelines indicate that patients with HgbA1c in the range 5.7-6.4% are at increased risk for development of diabetes, and intervention by lifestyle modif ication may be beneficial. HgbA1c greater or equal to 6.5% is considered diagnostic of diabetes.Performed By: #### 32878-8, 20558-6 ####[facility] LABCLIA [id number] [address] STATES OF AMERICALipid 1996 panelon 74-41-4527Kpkfbepdhdr [Mass/Vol]96 mg/dLNormal<200[facility]FairhillComselect specialty hospital-[facility] on above:Order Comment: Specimen Type: BLOOD SPECIMENOrdering Facility: [facility] Address:[address] [place], [place] [address]Result Comment: <200 mg/dL, Desirable 200-239 mg/dL, Borderline high>239 mg/dL, HighPerformed By: #### 69750-5, 43418-0, 3016-3, 65192-1, 2777-1 ####[facility] LABCLIA [id number] [place] [id number] [place] AMERICACholesterol in HDL [Mass/Vol]39 mg/dLLow>39[facility] Comment on above:Order Comment: Specimen Type: BLOOD SPECIMENOrdering Facility: [facility] Address:[address] [place] [id number] Comment: 40-59 mg/dL, Acceptable>59 mg/dL, High: Negative risk factor for coronary heart disease<40 mg/dL, Low: Positive risk factor for coronary heart diseasePerformed By: #### 15685-3, 02500-2, 3015-3, 74991-7, 2776- ####[facility] LABCLIA [id number] [address] [address] [place] AMERICACholesterol in LDL [Mass/Vol]40 mg/dLNormal<100[facility] on above:Order Comment: Specimen Type: BLOOD SPECIMENOrdering Facility: [facility] Address:[address] [place], [place] [address]Result Comment: <100 mg/dL, Optimal 100-129 mg/dL, Near optimal/above optimal 130-159 mg/dL, Borderline high 160-189 mg/dL, High>189 mg/dL, Very highSecondary prevention optimal LDL Cholesterol levels are recommended to be < 70 mg/dLPerformed By: #### 02840-4, 50956-5, 3, 25550-4, 2776- ####[facility] LABCLIA [id number] [address] [address] [place] AMERICACholesterol in LDL/Cholesterol in HDL [Mass ratio]1.03 {ratio}Normal<2.54[facility] on above:Order Comment: Specimen Type: BLOOD SPECIMENOrdering Facility: [facility] Address:[address] [place], [place] [address]Result Comment: Reference:1. National Cholesterol Education Program ATP III Guideline At-A-Glance Quick Desk Reference: National Heart, Lung, and Blood [place]. National Institutes of Health. 2001:NIH Publication No. 01-3305.2. An International Atherosclerosis Society position paper: global recommendations for the management of dyslipidemia: executive summary, Atherosclerosis. 2014: 232(2):410-413.Performed By: #### 28230-2, 60932-1, 3015-3, 58484-7, 2776- ####[facility] LABCLIA [id number] [address] [address] [place] OF AMERICACholesterol in VLDL [Mass/Vol]17 mg/dLNormal<30[facility] on above:Order Comment: Specimen Type: BLOOD SPECIMENOrdering Facility: [facility] Address:[address] [place], [place] [address]Performed By: #### 95913-3, 04231-3, 6-3, 94790-9, 2777-1 ####[facility] LABCLIA [id number] [place] [address] [place] AMERICACholesterol non HDL [Mass/Vol]57 mg/dLNormal<130[facility] on above:Order Comment: Specimen Type: BLOOD SPECIMENOrdering Facility: [facility] Address:[address] [place], [place] [address]Result Comment: <130 mg/dL, Optimal 130-159 mg/dL, Near optimal/above optimal 160-189 mg/dL, Bord jerry high 190-219 mg/dL, High>219 mg/dL, Very highSecondary prevention optimal non HDL Cholesterol levels are recommended to be <100 mg/dLPerformed By: #### 97184-9, 84151-0, 6-3, 74108-6, 2777-1 ####[facility] LABCLIA [id number] [place] [address] [place] AMERICACholesterol.total/Cholesterol in HDL [Mass ratio]2.46 {ratio}Normal<5.10 [facility] on above:Order Comment: Specimen Type: BLOOD SPECIMENOrdering Facility: [facility] Address:[address] [place], [place] [address]Performed By: #### 19230-9, 58379-2, 3015-3, 20368-5, 2777- ####[facility] LABCLIA [id number] [place] [address] [place] AMERICAFASTING TIMEUnknownNormal [facility] on above:Order Comment: Specimen Type: BLOOD SPECIMENOrdering Facility: [facility] Address:[address] [place], [place] [address]Performed By: #### 56376-1, 21366-0, 6-3, 51180-8, 2777-1 ####[facility] LABCLIA [id number] [place] [address] [place] AMERICATriglyceride [Mass/Vol]85 mg/dL Normal<150[facility]-FairhillComment on above:Order Comment: Specimen Type: BLOOD SPECIMENOrdering Facility: [facility] Address:[address] [place], [place] [address]Result Comment: <150 mg/dL, Normal 150-199 mg/dL, Borderline high 200-499 mg/dL, High>499 mg/dL, Very highPerformed By: #### 50968-5, 34333-8, 3015-3, 33921-4, 2777-1 ####[facility] LABIA [id number] [place] [address] [place] AMERICAMagnesium SerPl-mCncon 73-67-6771Hzmybxjla [Mass/Vol]2.1 mg/dLNormal 1.7-2.3CSumma Health Akron CampusComment on above:Order Comment: Specimen Type: BLOOD SPECIMENOrdering Facility: [facility] Address:[address] [place], [place] [address]Performed By: #### 59955-4, 45447-2, 3015-3, 04222-1, 2777-1 ####[facility] LABIA [id number] [place] [address] [place] OF AMERICAPTT, ANTICOAGULANT THERAPYon 37-97-0292cPEE Coag (PPP) [Time]64.6 sHigh23.0-32.4CSumma Health [facility]ron Campus Comment on above:Order Comment: Specimen Type: BLOOD SPECIMENOrdering Facility: [facility] Address:[address] [place] [address] Performed By: #### PTTAC ####[facility] LABCLIA [id number] [place] [address] [place] AMERICAPhosphate SerPl-mCncon 73-58-6011Wdthkiycz [Mass/Vol]4.7 mg/dLNormal2.7-4.8CSt. [facility] on above:Order Comment: Specimen Type: BLOOD SPECIMENOrdering Facility: [facility] Address:[address] [place], [place] [address]Performed By: #### 91584-9, 59322-0, 3016-3, 58168-9, 2777-1 ####[facility] LABCLIA [id number] [address] STATES OF [facility] HOSPITALTS SerPl-aCncon 26-91-0119FGI Qn 2.830 m[IU]/LNormal0.270-4.200[facility] on above:Order Comment: Specimen Type: BLOOD SPECIMENOrdering Facility: [facility] Address:[address] [place], [place] [address]Performed By: #### 25541- 2, 41710-7, 3016-3, 44176-3, 2777-1 ####[facility] LABCLIA [id number] [place] [address] [place] US CAROTID ARTERIES WING VAS LABon 96-14-1526GD CAROTID ARTERIES WING VAS LAB NormalSelect [facility] Specialty Hospital [facility]-FairhillUS LEG VEIN MAP [place]ING [place] LABon 37-11-9737HY LEG VEIN MAP WING VAS LABNormalCSumma Health Akron CampusUS MAMMARY ARTERY [place] LABon 72-81-0817LK MAMMARY ARTERY [place] LABNormalCSumma Health Akron CampusUS RADIAL ARTERY MAP [place] LABon 20-67-9481BX RADIAL ARTERY MAP WING [place]AS LABNormal [facility]-FairhillBasic metabolic 2000 panelon 44-83-0968Qqgtx gap [Moles/Vol]10 mmol/LNormal8-15[facility] on above:Order Comment: Specimen Type: BLOOD SPECIMENOrdering Facility: [facility] Address:[address] [place], [place] [address]Performed By: #### 39039- 9, 2777-1, 14112-6 ####[facility] LABCLIA [id number] [address] [address] [place] AMERICACalcium [Mass/Vol]9.1 mg/dLNormal8.5-10.2CSt. [facility] Hospital on above:Order Comment: Specimen Type: BLOOD SPECIMENOrdering Facility: [facility] Address:[address] [place], [place] [address]Performed By: #### 99073-7, 2777, 75119-6 ####[facility] LABCLIA [id number] VILLE [id number] [place] AMERICAChloride [Moles/Vol]102 mmol/L Caenek81-877LswzkbfakKettering Health Behavioral Medical Center on above:Order Comment: Specimen Type: BLOOD SPECIMENOrdering Facility: [facility] Address:[address] [place], [place] [address]Performed By: #### 30643-7, 2777, 37098-7 ####[facility] LABCLIA [id number][place] [address] [place] AMERICACO2 [Moles/Vol]23 mmol/LNormal 22-30[facility] on above:Order Comment: Specimen Type: BLOOD SPECIMENOrdering Facility: [facility] Address:[address] [place], [place] [address]Performed By: #### 81221-1, 27705-11, 48307-6 ####[facility] LABCLIA [id number] VILLE [id number] [place] AMERICACreatinine [Mass/Vol]1.29 mg/dL High0.73-1.22[facility] on above:Order Comment: Specimen Type: BLOOD SPECIMENOrdering Facility: [facility] Address:[address] [place], [place] [address]Performed By: #### 29692-5, 2777-1, 47365-2 ####[facility] LABCLIA [id number][place] [address] [place] AMERICACreatinine and Glomerular filtration rate.predicted panel (S/P/Bld)57 mL/min/1.73m???Low>=60[facility] on above:Order Comment: Specimen Type: BLOOD SPECIMENOrdering Facility: [facility] Address:[address] [place], [place] [address]Result Comment: Estimated Glomerular Filtration Rate (eGFR) is calculated using the 2020 CKD-EPI creatinine equation. This equation utilizes serum creatinine, sex, and age as parameters. The creatinine assay has traceable calibration to isotope dilution-mass spectrometry. Refer to KDIGO guidelines for clinical interpretation. In patients with unstable renal function, e.g. those with acute kidney injury, the eGFR may not accurately reflect actual GFR.Performed By: #### 01748-5, 2777-1, 26844-3 ####[facility] LABIA [id number] VILLE [id number] [place] OF AMERICAGlucose [Mass/Vol]94 mg/iNUppezd37-79UjndcablaKettering Health [facility]al Medical Center on above:Order Comment: Specimen Type: BLOOD SPECIMENOrdering Facility: [facility] Address:[address] [place], [place] [address]Result Comment: The [place] Diabetes Association (ADA) provides guidance for cutoff [...] unequivocal hyperglycemia, results should be confirmed by repeattesting. In a patient with classic symptoms of hyperglycemia or hyperglycemic crisis, random plasmaglucose results greater than or equal to 200 mg/dL meet the criteria for diagnosis of diabetes.Reference: Standards of Medical Care in Diabetes 2016, [place] Diabetes Association. Diabetes Care. 2016.39(Suppl 1).Performed By: #### 95280- 9, 2777-1, 47644-0 ####[facility] LABIA [id number] [address] [place] AMERICAPotassium [Moles/Vol] 4.5 mmol/LNormal3.7-5.1CSt. [facility] on above:Order Comment: Specimen Type: BLOOD SPECIMENOrdering Facility: [facility] Address:[address] [place], [place] [address]Performed By: #### 11769-3, 2777-1, 52805-0 ####[facility] LABCLIA [id number], [place] [address] [place] AMERICASodium [Moles/Vol]135 mmol/LLow 136-144[facility] on above:Order Comment: Specimen Type: BLOOD SPECIMENOrdering Facility: [facility] Address:[address] [place], [place] [address]Performed By: #### 07768-2, 2777-1, 60440-3 ####[facility] LABCLIA [id number], [place] [address] [place] AMERICAUrea nitrogen [Mass/Vol]25 mg/dL High9-24[facility] on above:Order Comment: Specimen Type: BLOOD SPECIMENOrdering Facility: [facility] Address:[address] [place], [place] [address]Performed By: #### 80302-8, 2777-1, 87818-2 ####[facility] LABCLIA [id number] [address] [place] AMERICACASE MANAGEMon 70-14-0728PJTT MANAGEMNormalCleCleveland Clinic Foundation panel Auto (Bld)on 06-15-2024 Erythrocyte distribution width (RBC) [Ratio]13.9 %Exbxsp50.5-15.0[facility] on above:Order Comment: Specimen Type: BLOOD SPECIMENOrdering Facility: [facility] Address:[address] [place], [place] [address]Performed By: #### 28909-1 ####[facility] LABIA [id number] [place] [address] [place] AMERICAHematocrit (Bld) [Volume fraction]47.3 %Tsccrt06.0-51.0[facility] on above:Order Comment: Specimen Type: BLOOD SPECIMENOrdering Facility: [facility] Address:[address] [place], [place] [address]Performed By: #### 30475-1 ####[facility] LABIA [id number] [place] [address] [place] Hemoglobin (Bld) [Mass/Vol]15.4 g/bITynypd20.0-17.0[facility] Comment on above:Order Comment: Specimen Type: BLOOD SPECIMENOrdering Facility: [facility] Address:[address] [place] [address] Performed By: #### 50172-8 ####[facility] LABIA [id number] [place] [address] [place] MCH (RBC) [Entitic mass]29.6 xoCpchmh03.0-34.0[facility] on above:Order Comment: Specimen Type: BLOOD SPECIMENOrdering Facility: [facility] Address:[address] [place] [address] Performed By: #### 83097-4 ####[facility] LABIA [id number] [place] [address] [place] MCHC (RBC) [Mass/Vol]32.6 g/qMYhiegu85.5-36.0[facility] on above:Order Comment: Specimen Type: BLOOD SPECIMENOrdering Facility: [facility] Address:[address] [place] [address] Performed By: #### 97605-7 ####[facility] LABIA [id number] [place] [address] [place] MCV (RBC) [Entitic vol]90.8 cLSmxmrs18.0-100.0[facility] on above:Order Comment: Specimen Type: BLOOD SPECIMENOrdering Facility: [facility] Address:[address] [place] [address] Performed By: #### 64615-0 ####[facility] LABIA [id number] [place] [address] [place] Nucleated RBC (Bld) [#/Vol]10*3/uLNormal<0.01[facility] on above:Order Comment: Specimen Type: BLOOD SPECIMENOrdering Facility: [facility] Address:[address] [place] [address] Performed By: #### 52978-7 ####[facility] LABIA [id number] [place] [address] [place] Platelet mean volume (Bld) [Entitic vol]10.4 fLNormal9.0-12.7CSt. [facility] on above:Order Comment: Specimen Type: BLOOD SPECIMENOrdering Facility: [facility] Address:[address] [place], [place] [address]Performed By: #### 19360-3 ####[facility] LABIA [id number] [place] [address] [place] Platelets (Bld) [#/Vol]161 10*3/kJCpzmxq563-427DuctsyplfKettering Health Behavioral Medical Center on above:Order Comment: Specimen Type: BLOOD SPECIMENOrdering Facility: [facility] Address:[address] [place] [address] Performed By: #### 36513-0 ####[facility] LABIA [id number] [place] [address] [place] RBC (Bld) [#/Vol]5.21 10*6/uLNormal4.20-6.00[facility] on above:Order Comment: Specimen Type: BLOOD SPECIMENOrdering Facility: [facility] Address:[address] [place], [place] [address]Performed By: #### 37515-4 ####[facility] LABCLIA [id number] [place] [address] [place] AMERICAWBC (Bld) [#/Vol]7.84 10*3/uLNormal3.70-11.00[facility]-FairhillComment on above:Order Comment: Specimen Type: BLOOD SPECIMENOrdering Facility: [facility] Address:[address] [place], [place] [address]Performed By: #### 27944-5 ####[facility] LABCLIA [id number] [address] STATES OF AMERICACNCOon 71-53-8314LCSMUbeqvc Text NormalSelect Medical Specialty Hospital - Cleveland-FairhillCONSULT PROGon 64-47-8113DOEKJHS PROGNormal [facility]-FairhillECG COMPLETEon 95-01-2438NEI COMPLETENormalCSumma Health Akron CampusMagnesium SerPl-mCncon 49-28-8051Gmkfskova [Mass/Vol]2.1 mg/dL Normal1.7-2.3CSumma Health Akron CampusComment on above:Order Comment: Specimen Type: BLOOD SPECIMENOrdering Facility: [facility] Address:[address] [place], [place] [address]Performed By: #### 11803-5, 2777-1, 15960-1 ####[facility] LABCLIA [id number] [address] [place] AMERICAPTT, ANTICOAGULANT THERAPYon 44-78-5379jCNW Coag (PPP) [Time]57.8 sHigh23.0-32.4CSumma Health [facility] Campus Comment on above:Order Comment: Specimen Type: BLOOD SPECIMENOrdering Facility: [facility] Address:[address] [place] [address] Performed By: #### PTTAC ####[facility] LABCLIA [id number] [place] [address] [place] AMERICAaPTT Coag (PPP) [Time]54.9 sHigh23.0-32.4CSt. [facility] Hospital on above:Order Comment: Specimen Type: BLOOD SPECIMENOrdering Facility: [facility] Address:[address] [place], [place] [address]Performed By: #### PTTAC ####[facility] LABCLIA [id number] [place] [address] [place] AMERICAaPTT Coag (PPP) [Time]43.8 sHigh 23.0-32.4CSumma Health Akron CampusComment on above:Order Comment: Specimen Type: BLOOD SPECIMENOrdering Facility: [facility] Address:[address] [place], [place] [address]Performed By: #### PTTAC ####[facility] LABIA [id number] [place] [address] [place] AMERICAPhosphate SerPl-mCncon 47-18-1556Pkyilgvdp [Mass/Vol]4.3 mg/dLNormal2.7-4.8CSumma Health Akron CampusComselect specialty hospital-[facility] on above:Order Comment: Specimen Type: BLOOD SPECIMENOrdering Facility: [facility] Address:[address] [place], [place] [address]Performed By: #### 01805-8, 2777-1, 22043-5 ####[facility] LABCLIA [id number], [place] [address] [place] AMERICABasic metabolic 2000 panelon 40-66-7506Bwjug gap [Moles/Vol]11 mmol/LNormal8-15[facility] Comment on above:Order Comment: Specimen Type: BLOOD SPECIMENOrdering Facility: [facility] Address:[address] [place] [address] Performed By: #### 18125-2, 18077-6, 2777-1 ####[facility] LABCLIA [id number] [address] [place] AMERICACalcium [Mass/Vol]9.2 mg/dLNormal8.5-10.2CSumma Health [facility] Campus Comment on above:Order Comment: Specimen Type: BLOOD SPECIMENOrdering Facility: [facility] Address:[address] [place] [address] Performed By: #### 44314-3, , 2776-11 ####[facility] LABCLIA [id number] [address] [place] AMERICAChloride [Moles/Vol]102 mmol/UTpgage16-641JjqzfmmmkSelect [facility] Comment on above:Order Comment: Specimen Type: BLOOD SPECIMENOrdering Facility: [facility] Address:[address] [place] [address] Performed By: #### 82581-2, , 2776-11 ####[facility] LABCLIA [id number], [place] [address] [place] AMERICACO2 [Moles/Vol]21 mmol/BQtw38-84DubsxkgylSelect Medical Specialty Hospital - Cleveland-FairhillComment on above:Order Comment: Specimen Type: BLOOD SPECIMENOrdering Facility: [facility] Address:[address] [place], [place] [address]Performed By: #### 22705-2, , 2776-11 ####[facility] LABCLIA [id number] [address] [place] Creatinine [Mass/Vol]1.41 mg/dLHigh0.73-1.22[facility]-FairhillComment on above:Order Comment: Specimen Type: BLOOD SPECIMENOrdering Facility: [facility] Address:[address] [place], [place] [address]Performed By: #### 91888-0, , 2776-11 ####[facility] LABCLIA [id number][place] [address] [place] Creatinine and Glomerular filtration rate.predicted panel (S/P/Bld)52 mL/min/1.73m???Low>=60[facility] on above:Order Comment: Specimen Type: BLOOD SPECIMENOrdering Facility: [facility] Address:[address] [place], [place] [address]Zyzdji Comment: Estimated Glomerular Filtration Rate (eGFR) is calculated using the 2020 CKD-EPI creatinine equation. This equation utilizes serum creatinine, sex, and age as parameters. The creatinine assay has traceable calibration to isotope dilution-mass spectrometry. Refer to KDIGO guidelines for clinical interpretation. In patients with unstable renal function, e.g. those with acute kidney injury, the eGFR may not accurately reflect actual GFR.Performed By: #### 14794-3, , 2776-11 ####[facility] LABIA [id number] [address] [place] AMERICAGlucose [Mass/Vol]97 mg/dLNormal 74-99[facility] on above:Order Comment: Specimen Type: BLOOD SPECIMENOrdering Facility: [facility] Address:[address] [place], [place] [address]Oalvgi Comment: The [place] Diabetes Association (ADA) provides guidance for cutoff [...] unequivocal hyperglycemia, results should be confirmed by repeattesting. In a patient with classic symptoms of hyperglycemia or hyperglycemic crisis, random plasmaglucose results greater than or equal to 200 mg/dL meet the criteria for diagnosis of diabetes.Reference: Standards of Medical Care in Diabetes 2016, [place] Diabetes Association. Diabetes Care. 2016.39(Suppl 1).Performed By: #### 56631- 2, , 2776-11 ####[facility] LABIA [id number] [address] [place] AMERICAPotassium [Moles/Vol] 4.6 mmol/LNormal3.7-5.1CSt. [facility] on above:Order Comment: Specimen Type: BLOOD SPECIMENOrdering Facility: [facility] Address:[address] [place] [address]Zyrkuwedg By: #### 63503-8, 43655-2, 2776-11 ####[facility] LABIA [id number] [address] [facility] CENTERSodium [Moles/Vol]134 mmol/LLow 136-144[facility] on above:Order Comment: Specimen Type: BLOOD SPECIMENOrdering Facility: [facility] Address:[address] [place], [place] [address]Performed By: #### 45244-2, , 2776-11 ####[facility] LABIA [id number] VILLE [id number] [place] AMERICAUrea nitrogen [Mass/Vol]31 mg/dL High9-24[facility] on above:Order Comment: Specimen Type: BLOOD SPECIMENOrdering Facility: [facility] Address:[address] [place], [place] [address]Performed By: #### 09112-5, , 27705-11 ####[facility] [id number] VILLE [id number] [facility] OF AMERICACBC panel Auto (Bld)on 06-14-2024 Erythrocyte distribution width (RBC) [Ratio]14.0 %Rvbbyy21.5-15.0[facility] on above:Order Comment: Specimen Type: BLOOD SPECIMENOrdering Facility: [facility] Address:[address] [place] [address]Cxfgebkpd By: #### 82631-6 ####[facility] LABKERBS [facility] [id number] [place] [id number] [place] AMERICAHematocrit (Bld) [Volume fraction]47.4 %Ehpxmz23.0-51.0[facility] on above:Order Comment: Specimen Type: BLOOD SPECIMENOrdering Facility: [facility] Address:[address] [place], [place] [address]Performed By: #### 85319-6 ####[facility] LABIA [id number] [place] [address] [place] Hemoglobin (Bld) [Mass/Vol]15.4 g/oFMypgro02.0-17.0[facility] Comment on above:Order Comment: Specimen Type: BLOOD SPECIMENOrdering Facility: [facility] Address:[address] [place] [address] Performed By: #### 28167-4 ####[facility] [id number] [place] [address] [place] MCH (RBC) [Entitic mass]29.9 cdYbwalf54.0-34.0[facility]-FairhillComment on above:Order Comment: Specimen Type: BLOOD SPECIMENOrdering Facility: [facility] Address:[address] [place] [address] Performed By: #### 57211-3 ####[facility] [id number] [place] [address] [place] MCHC (RBC) [Mass/Vol]32.5 g/yKDifffq38.5-36.0[facility]-FairhillComment on above:Order Comment: Specimen Type: BLOOD SPECIMENOrdering Facility: [facility] Address:[address] [place] [address] Performed By: #### 36697-5 ####[facility] LABKERBS [facility] [id number] [place] [address] [place] MCV (RBC) [Entitic vol]92.0 sKZscjch28.0-100.0[facility] on above:Order Comment: Specimen Type: BLOOD SPECIMENOrdering Facility: [facility] Address:[address] [place] [address] Performed By: #### 23949-6 ####[facility] LABKERBS [facility] [id number] [place] [address] [place] Nucleated RBC (Bld) [#/Vol]10*3/uLNormal<0.01[facility] on above:Order Comment: Specimen Type: BLOOD SPECIMENOrdering Facility: [facility] Address:[address] [place] [address] Performed By: #### [id number] ####[facility] [id number] [place] [address] [place] Platelet mean volume (Bld) [Entitic vol]10.2 fLNormal9.0-12.7CSt. [facility] on above:Order Comment: Specimen Type: BLOOD SPECIMENOrdering Facility: [facility] Address:[address] [place], [place] [address]Performed By: #### [id number] ####[facility]CL[facility] [id number] [place] [address] [place] Platelets (Bld) [#/Vol]154 10*3/gJXfosuw933-238SbsxsmrtqKettering [facility] on above:Order Comment: Specimen Type: BLOOD SPECIMENOrdering Facility: [facility] Address:[address] [place] [address] Performed By: #### 62427-6 ####[facility] LABIA [id number] [place] [address] [place] RBC (Bld) [#/Vol]5.15 10*6/uLNormal4.20-6.00[facility] on above:Order Comment: Specimen Type: BLOOD SPECIMENOrdering Facility: [facility] Address:[address] [place], [place] [address]Performed By: #### 03187-8 ####[facility] LABCLIA [id number] [place] [address] [place] AMERICAWBC (Bld) [#/Vol]8.17 10*3/uLNormal3.70-11.00[facility] on above:Order Comment: Specimen Type: BLOOD SPECIMENOrdering Facility: [facility] Address:[address] [place], [place] [address]Performed By: #### 31316-3 ####[facility] LABCLIA [id number] [place] [address] [place] AMERICACONSULT PROGon 68-67-5894DWNNTJW PROGNormalSelect Medical Specialty Hospital - Cleveland-FairhillMagnesium SerPl-mCncon 95-13-1239Xmzfptqee [Mass/Vol]2.1 mg/dLNormal1.7-2.3CSt. [facility] on above:Order Comment: Specimen Type: BLOOD SPECIMENOrdering Facility: [facility] Address:[address] [place], [place] [address]Performed By: #### 21008- 2, 68716-8, 2777-1 ####[facility] LABCLIA [id number] [address] [place] AMERICAPTT, ANTICOAGULANT THERAPYon 54-51-1907pIGH Coag (PPP) [Time]53.3 sHigh23.0-32.4CSt. [facility] on above:Order Comment: Specimen Type: BLOOD SPECIMENOrdering Facility: [facility] Address:[address] [place], [place] [address]Performed By: #### PTTAC ####[facility] LABCLIA [id number] [place] [address] [place] aPTT Coag (PPP) [Time]60.8 sHigh23.0-32.4CSt. [facility] Hospital on above:Order Comment: Specimen Type: BLOOD SPECIMENOrdering Facility: [facility] Address:[address] [place], [place] [address]Performed By: #### PTTAC ####[facility]IA [id number] [place] [address] [place] AMERICAaPTT Coag (PPP) [Time]80.3 sHigh 23.0-32.4CSumma Health Akron CampusComment on above:Order Comment: Specimen Type: BLOOD SPECIMENOrdering Facility: [facility] Address:[address] [place], [place] [address]Performed By: #### PTTAC ####[facility] LABCLIA [id number] [place] [id number] [place] AMERICAPhosphate SerPl-mCncon 54-08-7214Wfkoqpqvm [Mass/Vol]4.4 mg/dLNormal2.7-4.8CSumma Health Akron CampusComment on above:Order Comment: Specimen Type: BLOOD SPECIMENOrdering Facility: [facility] Address:[address] [place], [place] [address]Performed By: #### 55804-4, 54003-6, 2776- ####[facility] LABCLIA [id number][place] [address] [place] AMERICABasic metabolic 2000 panelon 09-82-6723Ofjuu gap [Moles/Vol]10 mmol/LNormal8-15[facility] Comment on above:Order Comment: Specimen Type: BLOOD SPECIMENOrdering Facility: [facility] Address:[address] [place] [address] Performed By: #### 11234-5, , 2776- ####[facility] LABCLIA [id number] VILLE [id number] [place] AMERICACalcium [Mass/Vol]9.4 mg/dLNormal8.5-10.2CSumma Health [facility] Campus Comment on above:Order Comment: Specimen Type: BLOOD SPECIMENOrdering Facility: [facility] Address:[address] [place] [address] Performed By: #### 87211-4, 21742-7, 2776- ####[facility] LABCLIA [id number] [address] [place] AMERICAChloride [Moles/Vol]102 mmol/TAqwexg60-297WilhfmczzSelect [facility] Comment on above:Order Comment: Specimen Type: BLOOD SPECIMENOrdering Facility: [facility] Address:[address] [place] [address] Performed By: #### 20392-7, , 2776-11 ####[facility] LABIA [id number] VILLE [id number] [place] AMERICACO2 [Moles/Vol]24 mmol/JDpeanc69-09HhwzfokzuSelect Medical Specialty Hospital - Cleveland-FairhillComment on above:Order Comment: Specimen Type: BLOOD SPECIMENOrdering Facility: [facility] Address:[address] [place], [place] [address]Performed By: #### 49512-8, , 2776-11 ####[facility] [id number][place] [address] [place] Creatinine [Mass/Vol]1.42 mg/dLHigh0.73-1.22[facility] Cleveland-FairhillComment on above:Order Comment: Specimen Type: BLOOD SPECIMENOrdering Facility: [facility] Address:[address] [place], [place] [address]Performed By: #### 73593-9, , 2776-11 ####[facility] LABIA [id number][place] [address] [place] Creatinine and Glomerular filtration rate.predicted panel (S/P/Bld)51 mL/min/1.73m???Low>=60[facility] on above:Order Comment: Specimen Type: BLOOD SPECIMENOrdering Facility: [facility] Address:[address] [place], [place] [address]Result Comment: Estimated Glomerular Filtration Rate (eGFR) is calculated using the 2020 CKD-EPI creatinine equation. This equation utilizes serum creatinine, sex, and age as parameters. The creatinine assay has traceable calibration to isotope dilution-mass spectrometry. Refer to KDIGO guidelines for clinical interpretation. In patients with unstable renal function, e.g. those with acute kidney injury, the eGFR may not accurately reflect actual GFR.Performed By: #### 90157-7, , 2776-11 ####[facility] LABIA [id number] [address] [place] AMERICAGlucose [Mass/Vol]90 mg/dLNormal 74-99[facility] on above:Order Comment: Specimen Type: BLOOD SPECIMENOrdering Facility: [facility] Address:[address] [place], [place] [id number] Comment: The [place] Diabetes Association (ADA) provides guidance for cutoff [...] unequivocal hyperglycemia, results should be confirmed by repeattesting. In a patient with classic symptoms of hyperglycemia or hyperglycemic crisis, random plasmaglucose results greater than or equal to 200 mg/dL meet the criteria for diagnosis of diabetes.Reference: Standards of Medical Care in Diabetes 2016, [place] Diabetes Association. Diabetes Care. 2016.39(Suppl 1).Performed By: #### 02023- 2, , 2776-11 ####[facility] LABIA [id number] VILLE [id number] [place] AMERICAPotassium [Moles/Vol] 4.6 mmol/LNormal3.7-5.1CSt. [facility] on above:Order Comment: Specimen Type: BLOOD SPECIMENOrdering Facility: [facility] Address:[address] [place] [id number] By: #### 43397-0, , 2776-11 ####[facility] LABKERBS [facility] [id number] VIL[place] [id number] [place] AMERICASodium [Moles/Vol]136 mmol/L Pdxyay679-661GeakxdwvpKettering Health Behavioral Medical Center on above:Order Comment: Specimen Type: BLOOD SPECIMENOrdering Facility: [facility] Address:[address] [place], [place] [address]Performed By: #### 87009-2, 22931-3, 27705-11 ####[facility] [id number] VILLE [id number] [place] AMERICAUrea nitrogen [Mass/Vol]28 mg/dL High9-24[facility]-FairhillComment on above:Order Comment: Specimen Type: BLOOD SPECIMENOrdering Facility: [facility] Address:[address] [place], [place] [address]Performed By: #### 73993-0, , 2776-11 ####[facility] [id number] STATES OF [facility] COUNTY HOSPITALCBC panel Auto (Bld)on 06-13-2024 Erythrocyte distribution width (RBC) [Ratio]13.8 %Rktrfo34.5-15.0[facility]-FairhillComment on above:Order Comment: Specimen Type: BLOOD SPECIMENOrdering Facility: [facility] Address:[address] [place], [place] [address]Performed By: #### 93453-6 ####[facility] [id number] [address] STATES [facility]IAL HOSPITALHematocrit (Bld) [Volume fraction]49.1 %Onfiau45.0-51.0[facility]-FairhillComselect specialty hospital-[facility] on above:Order Comment: Specimen Type: BLOOD SPECIMENOrdering Facility: [facility] Address:[address] [place], [place] [address]Performed By: #### 07724-3 ####[facility] [id number] [place] [id number] [place] Hemoglobin (Bld) [Mass/Vol]15.7 g/oIOnfkes03.0-17.0[facility] Comment on above:Order Comment: Specimen Type: BLOOD SPECIMENOrdering Facility: [facility] Address:[address] [place] [address] Performed By: #### 10061-6 ####[facility] LABIA [id number] [place] [address] [place] MCH (RBC) [Entitic mass]29.4 foHdyasf40.0-34.0[facility] on above:Order Comment: Specimen Type: BLOOD SPECIMENOrdering Facility: [facility] Address:[address] [place] [address] Performed By: #### 32294-0 ####[facility] [id number] [place] [address] [place] MCHC (RBC) [Mass/Vol]32.0 g/aOClazzw87.5-36.0[facility] on above:Order Comment: Specimen Type: BLOOD SPECIMENOrdering Facility: [facility] Address:[address] [place] [address] Performed By: #### 70384-5 ####[facility] [id number] [place] [address] [place] MCV (RBC) [Entitic vol]91.9 kPKoqkhr08.0-100.0[facility] on above:Order Comment: Specimen Type: BLOOD SPECIMENOrdering Facility: [facility] Address:[address] [place] [address] Performed By: #### 72513-3 ####[facility] [id number] [place] [address] [place] Nucleated RBC (Bld) [#/Vol]10*3/uLNormal<0.01[facility] on above:Order Comment: Specimen Type: BLOOD SPECIMENOrdering Facility: [facility] Address:[address] [place] [address] Performed By: #### 43006-5 ####[facility] LABKERBS [facility] [id number] [place] [id number] [place] Platelet mean volume (Bld) [Entitic vol]10.5 fLNormal9.0-12.7CSt. [facility] on above:Order Comment: Specimen Type: BLOOD SPECIMENOrdering Facility: [facility] Address:[address] [place], [place] [address]Performed By: #### 96647-1 ####[facility] [id number] [place] [address] [place] Platelets (Bld) [#/Vol]160 10*3/oARkvmfh383-744IehuthgaiKettering Health Behavioral Medical Center on above:Order Comment: Specimen Type: BLOOD SPECIMENOrdering Facility: [facility] Address:[address] [place] [address] Performed By: #### 23096-4 ####[facility] [id number] [place] [address] [place] RBC (Bld) [#/Vol]5.34 10*6/uLNormal4.20-6.00[facility] on above:Order Comment: Specimen Type: BLOOD SPECIMENOrdering Facility: [facility] Address:[address] [place], [place] [address]Performed By: #### 71334-8 ####[facility]IA [id number] [place] [address] [place] AMERICAWBC (Bld) [#/Vol]7.75 10*3/uLNormal3.70-11.00[facility] on above:Order Comment: Specimen Type: BLOOD SPECIMENOrdering Facility: [facility] Address:[address] [place], [place] [address]Performed By: #### 57395-8 ####[facility] LABCLIA [id number] [place] [address] [place] AMERICACONSULT PROGon 36-03-7475HSNZNEA PROGNormalGreen Cross Hospitalesium SerPl-mCncon 49-34-8352Buimchsxi [Mass/Vol]2.1 mg/dLNormal1.7-2.3CSt. [facility] on above:Order Comment: Specimen Type: BLOOD SPECIMENOrdering Facility: [facility] Address:[address] [place], [place] [address]Performed By: #### 93161- 2, 33523-4, 2777-1 ####[facility] LABCLIA [id number][place] [address] [place] AMERICAPTT, ANTICOAGULANT THERAPYon 31-87-6227jKLH Coag (PPP) [Time]46.9 sHigh23.0-32.4CSt. [facility] on above:Order Comment: Specimen Type: BLOOD SPECIMENOrdering Facility: [facility] Address:[address] [place], [place] [address]Performed By: #### PTTAC ####[facility] [id number] [place] [address] [place] aPTT Coag (PPP) [Time]72.1 sHigh23.0-32.4CSt. [facility] on above:Order Comment: Specimen Type: BLOOD SPECIMENOrdering Facility: [facility] Address:[address] [place], [place] [address]Performed By: #### PTTAC ####[facility] [id number] [place] [address] [place] AMERICAaPTT Coag (PPP) [Time]46.6 sHigh 23.0-32.4CSt. [facility] on above:Order Comment: Specimen Type: BLOOD SPECIMENOrdering Facility: [facility] Address:[address] [place], [place] [address]Performed By: #### PTTAC ####[facility] [id number] [place] [address] [place] AMERICAPVR ANK PRESS [facility] [place] LABon 49-56-7892EWH ANK [facility] [place] LABNormalCSumma Health Akron CampusPhosphate SerPl-mCncon 06-13-2024 Phosphate [Mass/Vol]4.1 mg/dLNormal2.7-4.8ClevelMarymount Hospital on above:Order Comment: Specimen Type: BLOOD SPECIMENOrdering Facility: [facility] Address:[address] [place], [place] [address]Performed By: #### 35147-3, , 2776-11 ####[facility] LABCLIA [id number], [place] [address] [place] Basic metabolic 2000 panelon 91-60-7843Xdpan gap [Moles/Vol]11 mmol/LNormal8-15 [facility] on above:Order Comment: Specimen Type: BLOOD SPECIMENOrdering Facility: [facility] Address:[address] [place], [place] [address]Performed By: #### 73197-7, , 2776-11 ####[facility] LABCLIA [id number][place] [address] [place] AMERICACalcium [Mass/Vol]9.3 mg/dLNormal8.5-10.2CSt. [facility] on above:Order Comment: Specimen Type: BLOOD SPECIMENOrdering Facility: [facility] Address:[address] [place], [place] [address]Performed By: #### 19735-0, , 2776-11 ####[facility] LABCLIA [id number] VILLE [id number] [place] AMERICAChloride [Moles/Vol]100 mmol/ACohmdz33-556 [facility] on above:Order Comment: Specimen Type: BLOOD SPECIMENOrdering Facility: [facility] Address:[address] [place], [place] [address]Performed By: #### 07817-1, , 2776-11 ####[facility] LABCLIA [id number] VILLE [id number] [place] AMERICACO2 [Moles/Vol]24 mmol/BGhqvhd86-65LmushomliKettering Health Behavioral Medical Center on above:Order Comment: Specimen Type: BLOOD SPECIMENOrdering Facility: [facility] Address:[address] [place], [place] [address]Performed By: #### 16122-3, , 2776-11 ####[facility] LABIA [id number] VILLE [id number] [place] AMERICACreatinine [Mass/Vol]1.38 mg/dLHigh0.73-1.22 [facility] on above:Order Comment: Specimen Type: BLOOD SPECIMENOrdering Facility: [facility] Address:[address] [place], [place] [address]Performed By: #### 93196-1, , 2776-11 ####[facility] [id number][place] [address] [place] AMERICACreatinine and Glomerular filtration rate.predicted panel (S/P/Bld)53 mL/min/1.73m???Low>=60[facility] on above:Order Comment: Specimen Type: BLOOD SPECIMENOrdering Facility: [facility] Address:[address] [place], [place] [address]Result Comment: Estimated Glomerular Filtration Rate (eGFR) is [...] accurately reflect actual GFR. Performed By: #### 50777-5, , 2776-11 ####[facility]IA [id number] [address] [place] AMERICAGlucose [Mass/Vol]94 mg/xVWugtlw48-45AkzcyezlyKettering Health Behavioral Medical Center on above:Order Comment: Specimen Type: BLOOD SPECIMENOrdering Facility: [facility] Address:[address] [place], [place] [address]Result Comment: The [place] Diabetes Association (ADA) provides guidance for cutoff [...] unequivocal hyperglycemia, results should be confirmed by repeattesting. In a patient with classic symptoms of hyperglycemia or hyperglycemic crisis, random plasmaglucose results greater than or equal to 200 mg/dL meet the criteria for diagnosis of diabetes.Reference: Standards of Medical Care in Diabetes 2016, [place] Diabetes Association. Diabetes Care. 2016.39(Suppl 1).Performed By: #### 68716-7, , 2776-11 ####[facility] LABCLIA [id number][place] [address] [place] AMERICAPotassium [Moles/Vol]4.3 mmol/LNormal3.7-5.1 [facility] on above:Order Comment: Specimen Type: BLOOD SPECIMENOrdering Facility: [facility] Address:[address] [place], [place] [address]Performed By: #### 73373-5, , 2776-11 ####[facility] LABCLIA [id number] [address] [place] AMERICASodium [Moles/Vol]135 mmol/THor173-922UwjnowldjKettering Health Behavioral [facility] Center on above:Order Comment: Specimen Type: BLOOD SPECIMENOrdering Facility: [facility] Address:[address] [place], [place] [address]Performed By: #### 41686-0, , 2776-11 ####[facility] LABCLIA [id number] ORLANDO VA MEDICAL CENTERK [place] [id number] [place] AMERICAUrea nitrogen [Mass/Vol]20 mg/dLNormal9-24 [facility] on above:Order Comment: Specimen Type: BLOOD SPECIMENOrdering Facility: [facility] Address:[address] [place], [place] [address]Performed By: #### 43804-1, 93475-7, 2777-1 ####[facility] LABCLIA [id number] [address] [place] AMERICACASE MGT INIT ASSESon 72-70-0502QWZY MGT INIT ASSHarrison Community HospitalCB panel Auto (Bld)on 06-12-2024 Erythrocyte distribution width (RBC) [Ratio]14.0 %Yvekhm34.5-15.0[facility]-FairhillComment on above:Order Comment: Specimen Type: BLOOD SPECIMENOrdering Facility: [facility] Address:[address] [place], [place] [address]Performed By: #### 87408-3 ####[facility] LABCLIA [id number] [address] STATES OF [facility] COUNTY HOSPITALHematocrit (Bld) [Volume fraction]44.3 %Exahdi23.0-51.0[facility] on above:Order Comment: Specimen Type: BLOOD SPECIMENOrdering Facility: [facility] Address:[address] [place], [place] [address]Performed By: #### 11885-4 ####[facility] LABCLIA [id number] [place] [address] [place] Hemoglobin (Bld) [Mass/Vol]14.5 g/lDOwdlyd48.0-17.0[facility] Comment on above:Order Comment: Specimen Type: BLOOD SPECIMENOrdering Facility: [facility] Address:[address] [place] [address] Performed By: #### 92491-2 ####[facility] LABCLIA [id number] [address] [place]JOHNMCP, [place] [address] [place] MCH (RBC) [Entitic mass]29.5 dvSzfbbx66.0-34.0[facility] on above:Order Comment: Specimen Type: BLOOD SPECIMENOrdering Facility: [facility] Address:[address] [place] [address] Performed By: #### 71888-0 ####[facility] LABCLIA [id number] [place] [address] [place] MCHC (RBC) [Mass/Vol]32.7 g/kWXtbkwm80.5-36.0[facility] on above:Order Comment: Specimen Type: BLOOD SPECIMENOrdering Facility: [facility] Address:[address] [place] [address] Performed By: #### 00439-8 ####[facility] [id number] [place] [address] [place] MCV (RBC) [Entitic vol]90.0 kOVmslwp02.0-100.0[facility] on above:Order Comment: Specimen Type: BLOOD SPECIMENOrdering Facility: [facility] Address:[address] [place] [address] Performed By: #### 69607-3 ####[facility] [id number] [place] [address] [place] Nucleated RBC (Bld) [#/Vol]10*3/uLNormal<0.01[facility] on above:Order Comment: Specimen Type: BLOOD SPECIMENOrdering Facility: [facility] Address:[address] [place] [address] Performed By: #### 14842-9 ####[facility] [id number] [place] [address] [place] Platelet mean volume (Bld) [Entitic vol]10.1 fLNormal9.0-12.7CSt. [facility] on above:Order Comment: Specimen Type: BLOOD SPECIMENOrdering Facility: [facility] Address:[address] [place], [place] [address]Performed By: #### 80959-2 ####[facility] [id number] [place] [address] [place] Platelets (Bld) [#/Vol]168 10*3/xSWlfsbc292-377CahcfxejsKettering Health Behavioral Medical Center on above:Order Comment: Specimen Type: BLOOD SPECIMENOrdering Facility: [facility] Address:[address] [place] [address] Performed By: #### 83453-9 ####[facility] [id number] [place] [address] [place] RBC (Bld) [#/Vol]4.92 10*6/uLNormal4.20-6.00[facility] on above:Order Comment: Specimen Type: BLOOD SPECIMENOrdering Facility: [facility] Address:[address] [place], [place] [address]Performed By: #### 98363-7 ####[facility] [id number] [place] [address] [place] HEN[facility] COUNTY HOSPITALWBC (Bld) [#/Vol]8.88 10*3/uLNormal3.70-11.00[facility] on above:Order Comment: Specimen Type: BLOOD SPECIMENOrdering Facility: [facility] Address:[address] [place], [place] [address]Performed By: #### 76482-5 ####[facility] [id number] [place] [address] [place] AMERICAErythrocyte distribution width (RBC) [Ratio]14.3 %Riujwn40.5-15.0[facility] on above: Order Comment: Specimen Type: BLOOD SPECIMENOrdering Facility: [facility] Address:[address] [place], [place] [address]Performed By: #### 12091- 2 ####[facility] [id number] [place] [address] [place] AMERICAHematocrit (Bld) [Volume fraction]45.1 %Doqsta13.0-51.0[facility] on above:Order Comment: Specimen Type: BLOOD SPECIMENOrdering Facility: [facility] Address:[address] [place], [place] [address]Performed By: #### 09079- 2 ####[facility] [id number] [address] OF AMERICAHemoglobin (Bld) [Mass/Vol]14.1 g/eXDjujmf42.0-17.0[facility] on above:Order Comment: Specimen Type: BLOOD SPECIMENOrdering Facility: [facility] Address:[address] [place], [place] [address]Performed By: #### 62690-4 ####[facility] [id number] [address] OF [facility]ITAL[facility] (RBC) [Entitic mass]28.5 pg Tlfhbd17.0-34.0[facility] on above:Order Comment: Specimen Type: BLOOD SPECIMENOrdering Facility: [facility] Address:[address] [place], [place] [address]Performed By: #### 99081-1 ####[facility] [id number] [place] [id number] [facility] (RBC) [Mass/Vol]31.3 g/dL Hpfmhx54.5-36.0[facility] on above:Order Comment: Specimen Type: BLOOD SPECIMENOrdering Facility: [facility] Address:[address] [place] [address]Performed By: #### 66706-3 ####[facility] LABIA [id number] [place] [id number] [place] OF AMERICAMCV (RBC) [Entitic vol]91.3 fL Bmqryg70.0-100.0[facility] on above:Order Comment: Specimen Type: BLOOD SPECIMENOrdering Facility: [facility] Address:[address] [place], [place] [address]Performed By: #### 48764-3 ####[facility] LABCLIA [id number] [place] [address] [place] AMERICANucleated RBC (Bld) [#/Vol] 10*3/uLNormal<0.01[facility] on above:Order Comment: Specimen Type: BLOOD SPECIMENOrdering Facility: [facility] Address:[address] [place], [place] [address]Performed By: #### 20911-7 ####[facility] LABCLIA [id number] [place] [address] [place] AMERICAPlatelet mean volume (Bld) [Entitic vol]10.4 fLNormal9.0-12.7CSt. [facility] Hospital on above: Order Comment: Specimen Type: BLOOD SPECIMENOrdering Facility: [facility] Address:[address] [place], [place] [address]Performed By: #### 63818- 2 ####[facility] LABCLIA [id number] [place] [address] [place] AMERICAPlatelets (Bld) [#/Vol]158 10*3/iYDemcis589-028RmzwmqaghKettering Health Behavioral Medical Center on above:Order Comment: Specimen Type: BLOOD SPECIMENOrdering Facility: [facility] Address:[address] [place], [place] [address]Performed By: #### 68719-2 ####[facility] LABCLIA [id number] [place] [address] [place] AMERICARBC (Bld) [#/Vol]4.94 10*6/uL Normal4.20-6.00[facility] on above:Order Comment: Specimen Type: BLOOD SPECIMENOrdering Facility: [facility] Address:[address] [place], [place] [address]Performed By: #### 65464-5 ####[facility] LABCLIA [id number] [place] [address] [place] AMERICAWBC (Bld) [#/Vol]7.08 10*3/uL Normal3.70-11.00[facility] on above:Order Comment: Specimen Type: BLOOD SPECIMENOrdering Facility: [facility] Address:[address] [place], [place] [address]Performed By: #### 29507-8 ####[facility] LABCLIA [id number] [address] STATES OF AMERICACONFIRM BLOOD TYPEon 06-12-2024 ABOANormalCSt. Vincent Hospital on above:Order Comment: Specimen Type: BLOOD SPECIMENOrdering Facility: [facility] Address:[address] [place], [place] [address]Performed By: #### CONABO ####[facility] BLOOD BANKCLIA [id number] [place] [address] [place] AMERICARh Nom (Bld)PositiveNormalCSumma Health Akron CampusComselect specialty hospital-flint on above: Order Comment: Specimen Type: BLOOD SPECIMENOrdering Facility: [facility] Address:[address] [place], [place] [address]Performed By: #### CONABO ####[facility] BLOOD BANKCLIA [id number] [place] [address] [place] AMERICACONSULTon 80-08-7452KPQTZNCOlgjylDwulujuvj Clinic ClevelandCONSULTNormalCSumma Health Akron CampusMagnesium SerPl-mCncon 69-65-8593Qobijoivl [Mass/Vol]2.1 mg/dLNormal1.7-2.3CSumma Health [facility] Campus Comment on above:Order Comment: Specimen Type: BLOOD SPECIMENOrdering Facility: [facility] Address:[address] [place] [address] Performed By: #### 04302-6, 10843-2, 2777-1 ####[facility] LABCLIA [id number]ETPT panel Coag (PPP)on 58-90-2175LYK Coag (PPP) [Relative time]1.0 {INR} Normal0.9-1.3CSt. [facility] Hospital on above:Order Comment: Specimen Type: BLOOD SPECIMENOrdering Facility: [facility] Address:[address] [place], [place] [address]Result Comment: Vitamin K Antagonist (VKA) Therapeutic Range: INR 2 to 3 (Target INR of 2.5)Note: For patients treated with VKA drugs, such as warfarin, the [employer] 2012 G uideline recommends a therapeutic INR range of 2 to 3 (target INR of 2.5). This recommendation includes high-risk patients with antiphospholipid syndrome with previous arterial or venous thromboembolism, current-generation mechanical or bioprosthetic aortic heart valve replacement.Note: Patients with mechanical aortic valve replacement and additional risk factors for thromboembolic events (atrialfibrillation, previous thromboembolism, LV dysfunction, hypercoagulable conditions) or an older generation mechanical AVR (i.e., ball in-Cage) or any mechanical MVR should have a INR therapeutic range of 2.5 to 3.5 (target INR of 3).Es GH, et al. Chest 2012, 141:7S-47SNishimura RA, et al. [facility] 2017, 70: 252-289Performed By: #### 71614-4, 23305-2 ####[facility] LABCLIA [id number] [address] STATES OF [facility] COUNTY HOSPITALPT Coag (PPP) [Time]11.0 sNormal9.7-13.0[facility] on above:Order Comment: Specimen Type: BLOOD SPECIMENOrdering Facility: [facility] Address:[address] [place] [address] Performed By: #### 02539-2, 92184-7 ####[facility] LABCLIA [id number] [place] [address] [place] Phosphate SerPl-mCncon 37-81-8121Wyfpsfuwa [Mass/Vol]4.2 mg/dLNormal2.7-4.8 [facility] on above:Order Comment: Specimen Type: BLOOD SPECIMENOrdering Facility: [facility] Address:[address] [place], [place] [address]Performed By: #### 48369-7, 55841-7, 2777-1 ####[facility] LABCLIA [id number] [address] [place] AMERICASTAPHYLOCOCCUS AUREUS AND MRSA SCREEN, PCR, NASAL on 06-12-2024S. aureus and MRSA panel VENESSA+probe (Nose)Not detectedNormalNot DetectedK[facility] on above:Order Comment: Specimen Type: SWABOrdering Facility: [facility] Address: [address] [place], [place] [address]Performed By: #### SAPCR ####[facility] LABCLIA [id number] [place] [address] [place] AMERICATHERAPY NTon 01-38-4414KIVUJBL NTNormalClevelAtrium Health Urinalysis complete panel (U)on 20-16-8034Inayqfdy LM.HPF (Urine sed) [#/Area] NegativeNormalNegativeK[facility] on above:Order Comment: Specimen Type: URINE SPECIMENOrdering Facility: [facility] Address:[address] [place], [place] [address]Performed By: #### 57818-1 ####[facility] LABCLIA [id number] [place] [address] [place] AMERICABilirubin Ql (U)NegativeNormal NegativeKettering Health Behavioral Medical Center on above:Order Comment: Specimen Type: URINE SPECIMENOrdering Facility: [facility] Address:[address] [place], [place] [address]Performed By: #### 64739-4 ####[facility] LABCLIA [id number] [place] [id number] [place] AMERICAClarity (Unsp spec)ClearNormalClearK[facility] on above:Order Comment: Specimen Type: URINE SPECIMENOrdering Facility: [facility] Address:[address] [place], [place] [address]Performed By: #### 18533-2 ####[facility] LABCLIA [id number] [place] [id number] [place] Color (U)YellowNormalYellowKettering Health Behavioral Medical Center on above:Order Comment: Specimen Type: URINE SPECIMENOrdering Facility: [facility] Address:[address] [place], [place] [address]Performed By: #### 71392- 8 ####[facility] LABCLIA [id number] [place] [id number] [place] AMERICAEpithelial cells LM.HPF (Urine sed) [#/Area]None SeenNormalCSt. Vincent Hospital on above:Order Comment: Specimen Type: URINE SPECIMENOrdering Facility: [facility] Address:[address] [place], [place] [address]Performed By: #### 47262- 8 ####[facility] LABCLIA [id number] [place] [id number] [place] AMERICAGlucose Test strip (U) [Mass/Vol] NegativeNormalNegativeK[facility] on above:Order Comment: Specimen Type: URINE SPECIMENOrdering Facility: [facility] Address:[address] [place], [place] [address]Performed By: #### 25286-6 ####[facility] LABCLIA [id number] [place] [id number] [place] AMERICAHemoglobin Ql (U)TraceAbnormal NegativeKettering Health [facility]al [facility] on above:Order Comment: Specimen Type: URINE SPECIMENOrdering Facility: [facility] Address:[address] [place], [place] [address]Performed By: #### 82219-5 ####[facility] LABCLIA [id number] [place] [address] [place] AMERICAHyaline casts (Urine sed) [#/Area]1-3 /LPFAbnormal0 /LPF [facility] on above:Order Comment: Specimen Type: URINE SPECIMENOrdering Facility: [facility] Address:[address] [place], [place] [address]Performed By: #### 96258-9 ####[facility] LABCLIA [id number] [place] [address] [place] AMERICAKetones Ql (U)NegativeNormalNegativeK[facility] on above:Order Comment: Specimen Type: URINE SPECIMENOrdering Facility: [facility] Address:[address] [place], [place] [address]Performed By: #### 86667-6 ####[facility] LABCLIA [id number] [place] [address] [place] AMERICALeukocyte esterase Test strip Ql (U)NegativeNormalNegativeK[facility] on above:Order Comment: Specimen Type: URINE SPECIMENOrdering Facility: [facility] Address:[address] [place], [place] [address]Performed By: #### 12518-5 ####[facility] LABCLIA [id number] [place] [id number] [place] AMERICANitrite Ql (U)Negative NormalNegativeK[facility] on above:Order Comment: Specimen Type: URINE SPECIMENOrdering Facility: [facility] Address:[address] [place], [place] [address]Performed By: #### 73327-3 ####[facility] LABCLIA [id number] [place] [address] [place] [facility] COUNTY HOSPITALpH (U)5.5 [pH]Normal<8.5CSumma Health Akron Campus Comment on above:Order Comment: Specimen Type: URINE SPECIMENOrdering Facility: [facility] Address:[address] [place] [address] Performed By: #### 64768-5 ####[facility] LABIA [id number] [place] [address] [place] Protein (U) [Mass/Vol]2+AbnormalNegativeK[facility] on above:Order Comment: Specimen Type: URINE SPECIMENOrdering Facility: [facility] Address:[address] [place], [place] [address]Performed By: #### 63124-3 ####[facility] LABIA [id number] [place] [address] [place] [facility] HOSPITALRB LM.HPF (Urine sed) [#/Area]3-5 /HPFAbnormal0-2 /HPFKettering Health Behavioral Medical Center on above: Order Comment: Specimen Type: URINE SPECIMENOrdering Facility: [facility] Address:[address] [place], [place] [address]Performed By: #### 39368- 8 ####[facility] LABIA [id number] [place] [address] [place] AMERICASpecific gravity (U) [Rel density]1.366Icarer7.005-1.030[facility] on above:Order Comment: Specimen Type: URINE SPECIMENOrdering Facility: [facility] Address:[address] [place], [place] [address]Performed By: #### 68584- 8 ####[facility] LABIA [id number] [place] [address] [place] [facility] COUNTY HOSPITALUrobilinogen Ql (U)0.2 EU/dL Normal0.2-1.0 EU/dLKettering Health Behavioral Medical Center on above:Order Comment: Specimen Type: URINE SPECIMENOrdering Facility: [facility] Address:[address] [place], [place] [address]Performed By: #### 60567-9 ####[facility] [id number] [address]W LM.HPF (Urine sed) [#/Area]6- 10 /HPFAbnormal0-5 /HPFKettering Health Behavioral Medical Center on above:Order Comment: Specimen Type: URINE SPECIMENOrdering Facility: [facility] Address:[address] [place], [place] [address]Performed By: #### 26761-5 ####[facility] [id number] [place] [address] [place] [facility] COUNTY HOSPITALaPTT PPPon 35-35-4441rJTZ Coag (PPP) [Time]31.1 eEwqhbv65.0-32.4CSt. [facility] on above: Order Comment: Specimen Type: BLOOD SPECIMENOrdering Facility: [facility] Address:[address] [place], [place] [address]Performed By: #### 50994- 9, 20523-1 ####[facility] LABKERBS [facility] [id number] MIFF[place] Jesus [address]CB W Auto Differential panel (Bld)on 00-86-7759Bmweotzej (Bld) [#/Vol]0.04 10*3/uLNormal<0.11CSt. [facility] on above:Order Comment: Specimen Type: BLOOD SPECIMENOrdering Facility: [facility] Address:[address] [place], [place] [address]Performed By: #### 74139-8 ####[facility] [id number] [address] STATES HER[facility]IAL HOSPITALBasophils/100 WBC (Bld)0.5 %NormalKettering Health Behavioral Medical Center on above:Order Comment: Specimen Type: BLOOD SPECIMENOrdering Facility: [facility] Address:[address] [place], [place] [address]Performed By: #### 78612-5 ####[facility] LABCLIA [id number] [place] [address] [place] AMERICADifferential cell count method Nom (Bld)AutoNormalCSt. Vincent Hospital on above:Order Comment: Specimen Type: BLOOD SPECIMENOrdering Facility: [facility] Address:[address] [place], [place] [address]Performed By: #### 24372- 8 ####[facility] LABCLIA [id number] [place] [address] [place] AMERICAEosinophils (Bld) [#/Vol]0.18 10*3/uLNormal<0.46[facility] on above:Order Comment: Specimen Type: BLOOD SPECIMENOrdering Facility: [facility] Address:[address] [place], [place] [address]Performed By: #### 72413-9 ####[facility] LABIA [id number] [place] [address] [place] AMERICAEosinophils/100 WBC (Bld)2.1 % NormalKettering Health Behavioral Medical Center on above:Order Comment: Specimen Type: BLOOD SPECIMENOrdering Facility: [facility] Address:[address] [place], [place] [address]Performed By: #### 94532-5 ####[facility] LABCLIA [id number] [place] [address] [place] AMERICAErythrocyte distribution width (RBC) [Ratio]14.1 %Normal 11.5-15.0[facility] on above:Order Comment: Specimen Type: BLOOD SPECIMENOrdering Facility: [facility] Address:[address] [place], [place] [address]Performed By: #### 45664-7 ####[facility] LABCLIA [id number] [place] [address] [place] AMERICAHematocrit (Bld) [Volume fraction]46.4 %Gdemoq52.0-51.0 [facility] on above:Order Comment: Specimen Type: BLOOD SPECIMENOrdering Facility: [facility] Address:[address] [place], [place] [address]Performed By: #### 66187-5 ####[facility] LABCLIA [id number] [place] [address] [place] AMERICAHemoglobin (Bld) [Mass/Vol]15.4 g/hELfpjhi40.0-17.0[facility]-FairhillComment on above:Order Comment: Specimen Type: BLOOD SPECIMENOrdering Facility: [facility] Address:[address] [place], [place] [address]Performed By: #### 47394-2 ####[facility] LABCLIA [id number] [place] [address] [place] Immature granulocytes (Bld) [#/Vol]0.16 10*3/uLHigh<0.10[facility] Hospitalment on above:Order Comment: Specimen Type: BLOOD SPECIMENOrdering Facility: [facility] Address:[address] [place], [place] [address]Performed By: #### 05796-9 ####[facility] LABCLIA [id number] [place] [address] [place] Immature granulocytes/100 WBC (Bld)1.9 %NormalKettering Health Behavioral Medical Center on above:Order Comment: Specimen Type: BLOOD SPECIMENOrdering Facility: [facility] Address:[address] [place] [address] Performed By: #### 67352-4 ####[facility] LABCLIA [id number] [place] [address] [place] Lymphocytes (Bld) [#/Vol]1.95 10*3/uLNormal1.00-4.00[facility] Comment on above:Order Comment: Specimen Type: BLOOD SPECIMENOrdering Facility: [facility] Address:[address] [place] [address] Performed By: #### 94279-6 ####[facility] LABCLIA [id number] [address] Lymphocytes/100 WBC (Bld)23.2 %NormalKettering Health Behavioral Medical Center on above: Order Comment: Specimen Type: BLOOD SPECIMENOrdering Facility: [facility] Address:[address] [place], [place] [address]Performed By: #### 05987- 8 ####[facility] LABIA [id number] [address] (RBC) [Entitic mass]29.4 pg Nfuext39.0-34.0[facility] on above:Order Comment: Specimen Type: BLOOD SPECIMENOrdering Facility: [facility] Address:[address] [place], [place] [address]Performed By: #### 92690-9 ####[facility] LABIA [id number] [address]HC (RBC) [Mass/Vol]33.2 g/dL Yqqfsb09.5-36.0[facility] on above:Order Comment: Specimen Type: BLOOD SPECIMENOrdering Facility: [facility] Address:[address] [place], [place] [address]Performed By: #### 64497-3 ####[facility] LABCLIA [id number] [address]V (RBC) [Entitic vol]88.7 fL Aqujbw20.0-100.0[facility] on above:Order Comment: Specimen Type: BLOOD SPECIMENOrdering Facility: [facility] Address:[address] [place], [place] [address]Performed By: #### 26749-5 ####[facility] LABCLIA [id number] [place] [address] [place] AMERICAMonocytes (Bld) [#/Vol]0.83 10*3/uLNormal<0.87[facility] on above:Order Comment: Specimen Type: BLOOD SPECIMENOrdering Facility: [facility] Address:[address] [place], [place] [address]Performed By: #### 36312-7 ####[facility] LABCLIA [id number] [place] [address] [place] AMERICAMonocytes/100 WBC (Bld)9.9 % NormalKettering Health Behavioral Medical Center on above:Order Comment: Specimen Type: BLOOD SPECIMENOrdering Facility: [facility] Address:[address] [place], [place] [address]Performed By: #### 10794-0 ####[facility] LABCLIA [id number] [place] [address] [place] AMERICANeutrophils (Bld) [#/Vol]5.24 10*3/uLNormal1.45-7.50[facility] on above:Order Comment: Specimen Type: BLOOD SPECIMENOrdering Facility: [facility] Address:[address] [place], [place] [address]Performed By: #### 78881-4 ####[facility] LABCLIA [id number] [place] [address] [place] AMERICANeutrophils/100 WBC (Bld)62.4 %NormalKettering Health Behavioral Medical Center on above:Order Comment: Specimen Type: BLOOD SPECIMENOrdering Facility: [facility] Address:[address] [place] [address] Performed By: #### 95701-3 ####[facility] LABCLIA [id number] [place] [address] [place] Nucleated RBC (Bld) [#/Vol]10*3/uLNormal<0.01[facility] on above:Order Comment: Specimen Type: BLOOD SPECIMENOrdering Facility: [facility] Address:[address] [place] [address] Performed By: #### 02545-7 ####[facility] LABIA [id number] [place] [address] [place] Nucleated RBC/100 WBC (Bld) [Ratio]0.0 /100 WBCNormalCSumma Health [facility] Campus Comment on above:Order Comment: Specimen Type: BLOOD SPECIMENOrdering Facility: [facility] Address:[address] [place] [address] Performed By: #### 82699-6 ####[facility] LABIA [id number] [place] [address] [place] Platelet mean volume (Bld) [Entitic vol]10.2 fLNormal9.0-12.7CSumma Health Akron CampusComselect specialty hospital-[facility] on above:Order Comment: Specimen Type: BLOOD SPECIMENOrdering Facility: [facility] Address:[address] [place], [place] [address]Performed By: #### 68612-1 ####[facility] LABIA [id number] [place] [address] [place] Platelets (Bld) [#/Vol]177 10*3/cUQwwbxv221-485WhscwlwinSelect Medical Specialty Hospital - Cleveland-FairhillComment on above:Order Comment: Specimen Type: BLOOD SPECIMENOrdering Facility: [facility] Address:[address] [place] [address] Performed By: #### 91529-2 ####[facility] LABIA [id number] [place] [address] [place] RBC (Bld) [#/Vol]5.23 10*6/uLNormal4.20-6.00[facility] on above:Order Comment: Specimen Type: BLOOD SPECIMENOrdering Facility: [facility] Address:[address] [place], [place] [address]Performed By: #### 91283-4 ####[facility] LABCLIA [id number] [address] STATES OF AMERICAWBC (Bld) [#/Vol]8.40 10*3/uLNormal3.70-11.00[facility]-FairhillComment on above:Order Comment: Specimen Type: BLOOD SPECIMENOrdering Facility: [facility] Address:[address] [place], [place] [address]Performed By: #### 43429-8 ####[facility]ITALIA [id number] [address]ETCEA [facility] 06-[facility]-2024 Carcinoembryonic Ag [Mass/Vol]2.7 ng/mLNormal<=2.9ClevelAtrium Health Comment on above:Order Comment: Specimen Type: BLOOD SPECIMENOrdering Facility: [facility] Address:[address] [place], [place] [address]Result Comment: Carcinoembryonic antigen test is used as an aid in monitoring response to treatmentor recurrence in patients with established colorectal, breast, lung, prostatic, pancreatic, and ovarian carcinomas. Clinical correlation is required.The Carcinoembryonic antigen test was performed using the [employer] Un[employer]el DXI paramagnetic particle chemiluminescent immunoassay method. Results obtained with different assay methods or kits cannot be used interchangeably.Performed By: #### 2039-6 ####[facility]ITALIA [id number] [address] STATES OF AMERICAComprehensive metabolic 2000 panelon 09-56-2377Npqrsre [Mass/Vol]4.1 g/dL Normal3.9-4.9CSumma Health Akron CampusComment on above:Order Comment: Specimen Type: BLOOD SPECIMENOrdering Facility: [facility] Address:[address] [place], [place] [address]Performed By: #### 2777-1, 15599-6, 3034-6, 81661-5 ####[facility] LABIA [id number] [place], [place] [address] [place] AMERICAALP [Catalytic activity/Vol]46 U/UAwvdxt74-502AslszmahbKettering Health [facility] Center on above:Order Comment: Specimen Type: BLOOD SPECIMENOrdering Facility: [facility] Address:[address] [place], [place] [id number] By: #### 2777- 1, 04980-7, 3034-6, 69887-6 ####[facility] LABCLIA [id number] [place] [address] [place] [Catalytic activity/Vol]22 U/XWcpybx15-98DgykhogczKettering Health Behavioral Medical Center on above:Order Comment: Specimen Type: BLOOD SPECIMENOrdering Facility: [facility] Address:[address] [place], [place] [address]Performed By: #### 2777-1, 24849-0, 3033-6, 49731-3 ####[facility] LABCLIA [id number] [place] [address] [place] Anion gap [Moles/Vol]10 mmol/LNormal8-15[facility] on above:Order Comment: Specimen Type: BLOOD SPECIMENOrdering Facility: [facility] [facility]OSP[facility] Address:[address] [place], [place] [address]Performed By: #### 2777-1, 34850-3, 3033-6, 26349-0 ####[facility] LABIA [id number] [place] [address] [place] AST [Catalytic activity/Vol]21 U/OSixmye47-83MkrrutkfnKettering Health Behavioral [facility] on above:Order Comment: Specimen Type: BLOOD SPECIMENOrdering Facility: [facility] Address:[address] [place] [address] Performed By: #### 2777-1, 53772-3, 3033-6, 94375-1 ####[facility] LABCLIA [id number] [place] [id number] [place] AMERICABilirubin [Mass/Vol]0.5 mg/dLNormal0.2-1.3CSt. [facility] on above:Order Comment: Specimen Type: BLOOD SPECIMENOrdering Facility: [facility] Address:[address] [place], [place] [address]Performed By: #### 2777-1, 45263-0, 3034-6, 30916-3 ####[facility] LABCLIA [id number] [place] [address] [place] AMERICACalcium [Mass/Vol]9.5 mg/dLNormal8.5-10.2CSt. [facility] on above:Order Comment: Specimen Type: BLOOD SPECIMENOrdering Facility: [facility] Address:[address] [place], [place] [address]Performed By: #### 2777-1, 33766-0, 3033-6, 85052-5 ####[facility] LABCLIA [id number] [place] [address] [place] AMERICAChloride [Moles/Vol]101 mmol/L Ugfryl61-685WxxfpbkrxKettering Health Behavioral Medical Center on above:Order Comment: Specimen Type: BLOOD SPECIMENOrdering Facility: [facility] Address:[address] [place], [place] [address]Performed By: #### 2777-1, 59727-5, 303-6, 09463-4 ####[facility] LABCLIA [id number] [place] [address] [place] AMERICACO2 [Moles/Vol]25 mmol/UJfswmv95-96CewemdnjeKettering Health Behavioral Medical Center on above:Order Comment: Specimen Type: BLOOD SPECIMENOrdering Facility: [facility] Address:[address] [place], [place] [address]Performed By: #### 2777-1, 20731-4, 3034-6, 12033-7 ####[facility] LABCLIA [id number] [place] [id number] [place] AMERICACreatinine [Mass/Vol] 1.38 mg/dLHigh0.73-1.22[facility] on above:Order Comment: Specimen Type: BLOOD SPECIMENOrdering Facility: [facility] Address:[address] [place], [place] [id number] By: #### 2777-1, 50697-5, 3034-6, 47205-0 ####[facility] LABCLIA [id number] [place] [address] [place] [facility] HOSPITALCreatinine and Glomerular filtration rate.predicted panel (S/P/Bld)53 mL/min/1.73m???Low>=60 [facility] on above:Order Comment: Specimen Type: BLOOD SPECIMENOrdering Facility: [facility] Address:[address] [place], [place] [id number] Comment: Estimated Glomerular Filtration Rate (eGFR) is calculated using the 2020 CKD-EPI creatinine equation. This equation utilizes serum creatinine, sex, and age as parameters. The creatinine assay has traceable calibration to isotope dilution-mass spectrometry. Refer to KDIGO guidelines for clinical interpretation. In patients with unstable renal function, e.g. those with acute kidney injury, the eGFR may not accurately reflect actual GFR.Performed By: #### 2777-1, , 3033-6, 91191-3 ####[facility] LABCLIA [id number] [place] [id number] [place] AMERICAGlucose [Mass/Vol]92 mg/dLNormal 74-99[facility] on above:Order Comment: Specimen Type: BLOOD SPECIMENOrdering Facility: [facility] Address:[address] [place], [place] [id number] Comment: The [place] [employer] (ADA) provides guidance for cutoff [...] unequivocal hyperglycemia, results should be confirmed by repeattesting. In a patient with classic symptoms of hyperglycemia or hyperglycemic crisis, random plasmaglucose results greater than or equal to 200 mg/dL meet the criteria for diagnosis of diabetes.Reference: Standards of Medical Care in Diabetes 2016, [place] [employer]. Diabetes Care. 2016.39(Suppl 1).Performed By: #### 2777-1, , 6, 73610-3 ####[facility] LABCLIA [id number] [place] [address] [place] Potassium [Moles/Vol]4.7 mmol/LNormal3.7-5.1CSt. [facility] on above:Order Comment: Specimen Type: BLOOD SPECIMENOrdering Facility: [facility] Address:[address] [place], [place] [address]Performed By: #### 2777-1, , 6, ####[facility] [id number] [place] [address] [place] Protein [Mass/Vol]6.5 g/dLNormal6.3-8.0[facility] on above:Order Comment: Specimen Type: BLOOD SPECIMENOrdering Facility: [facility] Address:[address] [place], [place] [address]Performed By: #### 2777-1, , 3034-04, ####[facility] LABIA [id number] [place] [address] [place] Sodium [Moles/Vol]136 mmol/DQsmask230-795FwuefmwxlKettering Health Behavioral Medical Center on above:Order Comment: Specimen Type: BLOOD SPECIMENOrdering Facility: [facility] Address:[address] [place], [place] [address]Performed By: #### 2777-1, , 3034-04, 69733-6 ####[facility] LABIA [id number] [address] [place] [address] [place] Urea nitrogen [Mass/Vol]21 mg/dLNormal9-24[facility] on above:Order Comment: Specimen Type: BLOOD SPECIMENOrdering Facility: [facility] Address:[address] [place] [address]Dapyzwgeg By: #### 2777-1, 63450-0, 3034-6, 82108-0 ####[facility] LABCLIA [id number] [place] [id number] [place] HISTORY PHYSICALon 34-97-7014ACTZZYL PHYSICALNormalCSumma Health [facility] Campus Magnesium SerPl-mCncon 78-88-6430Lrzjnzfiz [Mass/Vol]2.2 mg/dLNormal1.7-2.3 [facility] on above:Order Comment: Specimen Type: BLOOD SPECIMENOrdering Facility: [facility] Address:[address] [place] [address]Coxjkznwo By: #### 2777-1, 03033-9, 3034-6, 15524-5 ####[facility] LABCLIA [id number] [place] [id number] [place] AMERICANURSING PROGon 38-19-1961GKBCSMS PROGNormalSelect Medical Specialty Hospital - Cleveland-FairhillPT panel Coag (PPP)on 69-93-9086YDS Coag (PPP) [Relative time]1.0 {INR}Normal0.9-1.3CSt. [facility] on above:Order Comment: Specimen Type: BLOOD SPECIMENOrdering Facility: [facility] Address:[address] [place] [address]Mwvtdl Comment: Vitamin K Antagonist (VKA) Therapeutic Range: INR 2 to 3 (Target INR of 2.5)Note: For patients treated with VKA drugs, such as warfarin, the [place] [employer] 2012 Guideline recommends a therapeutic INR range of 2 to 3 (target INR of 2.5). This recommendation includes high-risk patients with antiphospholipid syndrome with previous arterial or venous thromboembolism, current-generation mechanical or bioprosthetic aortic heart valve replacement.Note: Patients with mechanical aortic valve replacement and additional risk factors for thromboembolic events (atrialfibrillation, previous thromboembolism, LV dysfunction, hypercoagulable conditions) or an older gene ration mechanical AVR (i.e., ball in-Cage) or any mechanical MVR should have a INR therapeutic range of 2.5 to 3.5 (target INR of 3).Es MORA, et al. Chest 2012, 141:7S-47SJames RA, et al. [facility] 2017, 70: 252-289Performed By: #### 70936-7, 22622-1 ####[facility] [id number] [place] [address] [place] AMERICAPT Coag (PPP) [Time] 10.9 sNormal9.7-13.0[facility] on above:Order Comment: Specimen Type: BLOOD SPECIMENOrdering Facility: [facility] Address:[address] [place], [place] [address]Performed By: #### 04945-0, 53377-8 ####[facility] [id number] [place] [address] [place] AMERICAPhosphate SerPl-mCncon 06-11-2024 Phosphate [Mass/Vol]3.8 mg/dLNormal2.7-4.8CSt. [facility] on above:Order Comment: Specimen Type: BLOOD SPECIMENOrdering Facility: [facility] Address:[address] [place], [place] [address]Performed By: #### 2777-1, 56903-5, 3034-6, 99271-5 ####[facility] [id number] [place] [address] [place] Prealb SerPl-mCncon 23-32-6985Jvbgsmkbyq [Mass/Vol]21 mg/aRPjohpl95-49XzerkmqtbKettering Health Behavioral Medical Center on above:Order Comment: Specimen Type: BLOOD SPECIMENOrdering Facility: [facility] Address:[address] [place], [place] [address]Performed By: #### 03869-1 ####[facility] LABCLIA [id number] [place] [address] [place] AMERICATYPE + SCREENon 49-87-6565OLRYBymfddLofmlbvjsSt. Vincent Hospital on above:Order Comment: Specimen Type: BLOOD SPECIMENOrdering Facility: [facility] Address:[address] [place], [place] [address]Performed By: #### TSCR ####[facility] BLOOD BANKCLIA [id number] [place] [address] [place] H[facility] COUNTY HOSPITALHISTORICAL AB SCR STATUSNegative NormalKettering Health Behavioral Medical Center on above:Order Comment: Specimen Type: BLOOD SPECIMENOrdering Facility: [facility] Address:[address] [place], [place] [address]Performed By: #### TSCR ####[facility] BLOOD BANKCLIA [id number] [place] [address] [place] AMERICARh Nom (Bld)PositiveNormalCSt. [facility] Hospital on above: Order Comment: Specimen Type: BLOOD SPECIMENOrdering Facility: [facility] Address:[address] [place], [place] [address]Performed By: #### TSCR ####[facility] BLOOD BANKCLIA [id number] [place] [address] [place] AMERICATYPE AND SCREEN UGTHKJMLPB82/04/2024 23:59Normal [facility] on above:Order Comment: Specimen Type: BLOOD SPECIMENOrdering Facility: [facility] Address:[address] [place], [place] [address]Performed By: #### TSCR ####[facility] BLOOD BANKCLIA [id number] [place] [id number] [place] AMERICATransferrin SerPl-mCncon 52-62-6572Ykszpchdeew [Mass/Vol]249 mg/dLNormal 200-360[facility] on above:Order Comment: Specimen Type: BLOOD SPECIMENOrdering Facility: [facility] Address:[address] [place], [place] [id number] By: #### 2777-1, 33725-6, 3034-6, 39384-3 ####[facility] LABCLIA [id number] [place] [address] [place] AMERICAaPTT PPPon 89-23-4061qBYG Coag (PPP) [Time]33.5 sHigh23.0-32.4CSt. [facility] on above:Order Comment: Specimen Type: BLOOD SPECIMENOrdering Facility: [facility] Address:[address] [place], [place] [address]Performed By: #### 20094- 0, 56681-8 ####[facility] LABCLIA [id number] [place] [address] [place] AMERICACovid-19 PCR (CVDTBH)on 43-34-7402MJHJ-CoV-2 (COVID-19) RNA VENESSA+probe Ql (Unsp spec)Not detectedNormal NOT DETECTEDThe [facility] on above:Result Comment: When diagnostic testing is negative, the possibility of a false negative should be c onsidered in the context of a patient's recent [...] for this test is supported by the [place] of Health and Human Service's declaration that circumstances exist to justify the emergency use of in vitro diagnostics for the detection and/or diagnosis of the virus that causes COVID-19. This EUA will remain in effect for the duration of the COVID-19 declaration justifying emergency of IVDs, unless it is terminated or revoked by the FDA (after which the test may no longer be used).Performed By: #### BMP, BNP #### [facility] [address] [place] [address] Dr. Leni GUERRA AGon 91-21-9079IOQDSUVRPZMXWAultman Alliance Community HospitalComment on above:Result Comment: Negative for Flu A protein angiten. Infection due to Flu A cannot be ruled out. FluA angiten in the sample may be below the detection limit of the test.Performed By: #### CRP #### [facility] [address] [place] [address] Dr. Leni WhiteUBNEGOSEAS [facility] Community HospitalComment on above: Result Comment: Negative for Flu B protein antigen. Infection due to Flu B cannot be ruled out. FluB antigen in the sample may be below the detection limit of the test.Performed By: #### CRP #### [facility] [address] [place] [address] Dr. Leni Lee AGNegativeNormalNEGATIVE SEE COMMENTThe [facility] on above:Performed By: #### CRP #### [facility] [address] [place] [address] Dr. Leni Mayers AGNegativeNormalNEGATIVE SEE COMMENTThe [facility] on above:Performed By: #### CRP #### [facility] [address] [place] [address] Dr. Leni HamlinCT LSJACKSON WO CONon 36-15-2600WL LSJACKSON WO CONEXAMINATION: [facility] WO CON, 12/18/2022 3:26 PM EST HISTORY: [...] Electronically authenticated by: CIERA HERNÁNDEZ Date: 2022-12-18 15:56NoOhioHealth Nelsonville [facility] AUTO DIFFon 23-98-7221PXDQ #0.1 103/ulNormal0.0-0.1Paulding County HospitalComment on above:Performed By: #### BMP, BNP #### [facility] [address] [place] [address] [address] Leni HamlinBasophils/100 WBC (Bld)0.5 %Normal0.2-2.0[facility] Comment on above:Performed By: #### BMP, BNP #### [facility] [address] [place] [address] [address] Leni Richards #0.3 103/ulNormal0.0-0.7The [facility] For RehabilitationComment on above: Performed By: #### BMP, BNP #### [facility] [address] [place] [address] [address] Leni Lesterosinophils/100 WBC (Bld)2.2 %Normal0.9-7.0The [facility] Comment on above:Performed By: #### BMP, BNP #### [facility] [address] [place] [address] [address] Leni Lesterrythrocyte distribution width (RBC) [Ratio]13.3 %Zjvtxz11.0-15.0 The [facility] For RehabilitationComment on above:Performed By: #### BMP, BNP #### [facility] [address] [place] [address] Dr. Leni HamlinHematocrit (Bld) [Volume fraction]46.9 %Fqnidh57.0-54.0The [facility] For RehabilitationComment on above:Performed By: #### BMP, BNP #### [facility] [address] [place] [address] Dr. Leni HamlinHemoglobin (Bld) [Mass/Vol]15.3 g/wHAjqtuz73.0-18.0The [facility] For RehabilitationComment on above:Performed By: #### BMP, BNP #### [facility] [address] [place] [address] Dr. Leni Spencer #0.18 10e3/ulCritically high0.00-0.03The [facility] Comment on above:Performed By: #### BMP, BNP #### [facility] [address] [place] [address] Dr. Leni Spencer %1.3 %Critically high0.0-0.5The [facility] For RehabilitationComment on above:Performed By: #### BMP, BNP #### [facility] [address] [place] [address] Dr. Leni Leija #1.9 103/ulNormal1.2-3.8The [facility] For RehabilitationComment on above:Performed By: #### BMP, BNP #### [facility] [address] [place] [address] Dr. Leni Johnsonhocytes/100 WBC (Bld)13.6 %Critically low20.5-60.0The [facility] For RehabilitationComment on above:Performed By: #### BMP, BNP #### [facility] [address] [place] [address] Dr. Leni GregorioUAL DIFF REQNONormalThe [facility] For RehabilitationComment on above: Performed By: #### BMP, BNP #### [facility] [address] [place] [address] Dr. Leni Wen (RBC) [Entitic mass]29.2 gyRybtkz02.9-34.0The [facility] For RehabilitationComment on above:Performed By: #### BMP, BNP #### [facility] [address] [place] [address] Dr. Leni Upton (RBC) [Mass/Vol]32.6 g/jGCzvzjn78.9-35.2The [facility] For RehabilitationComment on above:Performed By: #### BMP, BNP #### [facility] [address] [place] [address] Dr. Leni Upton (RBC) [Entitic vol]89.5 sGTmyzpv92.0-94.0The [facility] RehabilitationComment on above:Performed By: #### BMP, BNP #### [facility] [address] [place] [address] Dr. Lein Mane #0.9 103/ulCritically high0.3-0.8The [facility] Comment on above:Performed By: #### BMP, BNP #### [facility] [address] [place] [address] Dr. Leni Sandovalocytes/100 WBC (Bld)6.6 %Normal1.7-12.0[facility] Comment on above:Performed By: #### BMP, BNP #### [facility] [address] [place] [address] Dr. Leni Mayen #10.4 103/ulCritically high1.4-6.5The [facility] Comment on above:Performed By: #### BMP, BNP #### [facility] [address] [place] [address] Dr. Leni Coburnutrophils/100 WBC (Bld)75.8 %Critically high43.0-75.0The [facility] For RehabilitationComment on above:Performed By: #### BMP, BNP #### [facility] [address] [place] [address] Dr. Leni Wright mean volume (Bld) [Entitic vol]10.6 fLNormal9.5-13.5The [facility] For RehabilitationComment on above:Performed By: #### BMP, BNP #### [facility] [address] [place] [address] Dr. Leni HamlinPLT143 103/ulCritically rbe917-648Xja [facility] For RehabilitationComselect specialty hospital-[facility] on above:Performed By: #### BMP, BNP #### [facility] [address] [place] [address] Dr. Leni HamlinRBC5.24 106/ulNormal4.70-6.10The [facility] For RehabilitationComment on above:Performed By: #### BMP, BNP #### [facility] [address] [place] [address] Dr. Leni HamlinWBC13.7 103/ulCritically high4.0-11.0The [facility] on above:Performed By: #### BMP, BNP #### [facility] [address] [place] [address] Dr. Leni Bentley 38-29-1146CPT1.6 mg/dLCritically high<=1.0The [facility] on above:Performed By: #### CMP, CRP #### [facility] [address] [place] [address] Dr. Leni Cm 14(COMP METB)on 12-62-1990Nfbqqjg [Mass/Vol]2.5 g/dL Critically low3.4-5.0The [facility] For RehabilitationComment on above:Performed By: #### CMP, CRP #### [facility] [address] [place] [address] Dr. Leni HamlinAlbumin/Globulin [Mass ratio]0.7 {ratio}NormalThe [facility] For RehabilitationComselect specialty hospital-[facility] on above:Performed By: #### CMP, CRP #### [facility] [address] [place] [address] Dr. Leni Pérez [Catalytic activity/Vol]54 U/TWenfnn78-879Ngh Highland District Hospitalment on above:Performed By: #### CMP, CRP #### [facility] [address] [place] [address] Dr. Leni Archer [Catalytic activity/Vol]11 U/LCritically blx01-02Jai [facility] For RehabilitationComment on above:Performed By: #### CMP, CRP #### [facility] [address] [place] [address] Dr. Leni Danielon gap [Moles/Vol]8.8 mmol/LNormalThe [facility] For RehabilitationComment on above:Performed By: #### CMP, CRP #### [facility] [address] [place] [address] Dr. Leni HamlinAST [Catalytic activity/Vol]9 U/LCritically tew14-39Puj [facility] For RehabilitationComment on above:Performed By: #### CMP, CRP #### [facility] [address] [place] [address] Dr. Leni HamlinBilirubin [Mass/Vol]0.3 mg/dLNormal0.2-1.0The [facility] Comment on above:Performed By: #### CMP, CRP #### [facility] [address] [place] [address] Dr. Leni HamlinCalcium [Mass/Vol]8.6 mg/dLNormal8.5-10.1The [facility] Comment on above:Performed By: #### CMP, CRP #### [facility] [address] [place] [address] Dr. Leni HamlinChloride [Moles/Vol]103 mmol/WJgmdvo01-997Hrs [facility] Comment on above:Performed By: #### CMP, CRP #### [facility] [address] [place] [address] Dr. Leni HamlinCO2 [Moles/Vol]29.2 mmol/RHkkcbx23.0-32.0The [facility] Comment on above:Performed By: #### CMP, CRP #### [facility] [address] [place] [address] Dr. Leni HamlinCreatinine [Mass/Vol]1.20 mg/dLNormal0.70-1.30The [facility] For RehabilitationComment on above:Performed By: #### CMP, CRP #### [facility] [address] [place] [address] Dr. Leni LesterGFR-AF TURKMEN>60Normal>=60The [facility] For RehabilitationComment on above:Performed By: #### CMP, CRP #### [facility] [address] [place] [address] Dr. Leni LesterGFR-NON AF HUZEHGLV10 mL/min/1.77b7Qczcowkdtp low>=60The [facility] For RehabilitationComment on above:Performed By: #### CMP, CRP #### [facility] [address] [place] [address] [address] Leni HamlinGlobulin (S) [Mass/Vol]3.4 g/dLNormalThe [facility] For RehabilitationComment on above:Performed By: #### CMP, CRP #### [facility] [address] [place] [address] Dr. Leni HamlinGlucose [Mass/Vol]108 mg/dLCritically xemo29-953Ozk [facility] RehabilitationComment on above:Performed By: #### CMP, CRP #### [facility] [address] [place] [address] Dr. Leni HamlinPotassium [Moles/Vol]4.0 mmol/LNormal3.5-5.1The [facility] Comment on above:Performed By: #### CMP, CRP #### [facility] [address] [place], [place] [address] Dr. Leni HamlinProtein [Mass/Vol]5.9 g/dLCritically low6.4-8.2The [facility] For RehabilitationComment on above:Performed By: #### CMP, CRP #### [facility] [address] [place] [address] Dr. Leni HamlinSodium [Moles/Vol]137 mmol/BNmmiyk871-777Jcw [facility] Comment on above:Performed By: #### CMP, CRP #### [facility] [address] [place] [address] Dr. Leni HamlinUrea nitrogen [Mass/Vol]15.0 mg/dLNormal7.0-18.0The [facility] RehabilitationComment on above:Performed By: #### CMP, CRP #### [facility] [address] [address] [address] Leni HamlinUrea nitrogen/Creatinine [Mass ratio]12.5 mg/mgNormalThe [facility] RehabilitationComment on above:Performed By: #### CMP, CRP #### [facility] [address] [place] [address] Dr. Leni Rush AUTO DIFFon [id number] #0.1 103/ulNormal0.0-0.1The [facility] RehabilitationComment on above:Performed By: #### CMP, CRP #### [facility] [address] [place] [address] Dr. Leni HamlinBasophils/100 WBC (Bld)0.5 %Normal0.2-2.0[facility] Comment on above:Performed By: #### CMP, CRP #### [facility] [address] [place] [address] Dr. Leni LesterO #0.2 103/ulNormal0.0-0.7The [facility] RehabilitationComment on above: Performed By: #### CMP, CRP #### [facility] [address] [place] [address] Dr. Leni Lesterosinophils/100 WBC (Bld)1.6 %Normal0.9-7.0The [facility] Comment on above:Performed By: #### CMP, CRP #### [facility] [address] [place] [address] Dr. Leni Lesterrythrocyte distribution width (RBC) [Ratio]13.4 %Taxxix17.0-15.0 The [facility] For RehabilitationComment on above:Performed By: #### CMP, CRP #### [facility] [address] [place] [address] Dr. Leni HamlinHematocrit (Bld) [Volume fraction]46.6 %Ecperk42.0-54.0The [facility] RehabilitationComment on above:Performed By: #### CMP, CRP #### [facility] [address] [place] [address] Dr. Leni HamlinHemoglobin (Bld) [Mass/Vol]15.1 g/bCFcbkod54.0-18.0The [facility] RehabilitationComment on above:Performed By: #### CMP, CRP #### [facility] [address] [place] [address] Dr. Leni Spencer #0.21 10e3/ulCritically high0.00-0.03The [facility] Comment on above:Performed By: #### CMP, CRP #### [facility] [address] [place] [address] Dr. Leni Spencer %1.4 %Critically high0.0-0.5The [facility] For RehabilitationComment on above:Performed By: #### CMP, CRP #### [facility] [address] [place] [address] Dr. Leni Leija #1.9 103/ulNormal1.2-3.8The [facility] For RehabilitationComment on above:Performed By: #### CMP, CRP #### [facility] [address] [place] [address] Dr. Leni Johnsonhocytes/100 WBC (Bld)12.4 %Critically low20.5-60.0The [facility] RehabilitationComment on above:Performed By: #### CMP, CRP #### [facility] [address] [place] [address] Dr. Leni GregorioUAL DIFF REQNONormalThe [facility] RehabilitationComment on above: Performed By: #### CMP, CRP #### [facility] [address] [place] [address] Dr. Leni Wen (RBC) [Entitic mass]28.9 ekJboqob11.9-34.0The [facility] For RehabilitationComment on above:Performed By: #### CMP, CRP #### [facility] [address] [place] [address] Dr. Leni Abraham (RBC) [Mass/Vol]32.4 g/qZJvwjae91.9-35.2The [facility] RehabilitationComment on above:Performed By: #### CMP, CRP #### [facility] [address] [place] [address] Dr. Leni Sandhu (RBC) [Entitic vol]89.3 mHMszwtq61.0-94.0The [facility] For RehabilitationComment on above:Performed By: #### CMP, CRP #### [facility] [address] [place] [address] Dr. Leni Mane #1.1 103/ulCritically high0.3-0.8The [facility] Comment on above:Performed By: #### CMP, CRP #### [facility] [address] [place] [address] Dr. Leni Sandovalocytes/100 WBC (Bld)6.9 %Normal1.7-12.0The [facility] Comment on above:Performed By: #### CMP, CRP #### [facility] [address] [place] [address] Dr. Leni Mayen #11.8 103/ulCritically high1.4-6.5The [facility] Comment on above:Performed By: #### CMP, CRP #### [facility] [address] [place] [address] Dr. Leni Coburnutrophils/100 WBC (Bld)77.2 %Critically high43.0-75.0The [facility] RehabilitationComment on above:Performed By: #### CMP, CRP #### [facility] [address] [place] [address] Dr. Leni Wright mean volume (Bld) [Entitic vol]10.5 fLNormal9.5-13.5The [facility] RehabilitationComment on above:Performed By: #### CMP, CRP #### [facility] [address] [place] [address] Dr. Leni HamlinPLT138 103/ulCritically afe452-865Ktk [facility] RehabilitationComment on above:Performed By: #### CMP, CRP #### [facility] [address] [place] [address] Dr. Leni HamlinRBC5.22 106/ulNormal4.70-6.10The [facility] RehabilitationComment on above:Performed By: #### CMP, CRP #### [facility] [address] [address] [address] Leni HamlinWBC15.3 103/ulCritically high4.0-11.0The [facility] RehabilitationComment on above:Performed By: #### CMP, CRP #### [facility] [address] [address] [address] Leni Bentley [id number] mg/dLCritically high<=1.0The [facility] RehabilitationComment on above:Performed By: #### CVDAGS #### [facility] [address] [place] [address] Dr. Leni HamlinPROF 14(COMP METB)on [id number] [Mass/Vol]2.5 g/dL Critically low3.4-5.0The [facility] RehabilitationComment on above:Performed By: #### CVDAGS #### [facility] [address] [place] [address] Dr. Leni HamlinAlbumin/Globulin [Mass ratio]0.8 {ratio}NormalThe [facility] RehabilitationComment on above:Performed By: #### CVDAGS #### [facility] [address] [place] [address] Dr. Leni Pérez [Catalytic activity/Vol]54 U/HTlvzwz63-400Pzf [facility] RehabilitationComment on above:Performed By: #### CVDAGS #### [facility] [address] [place] [address] Dr. Leni Archer [Catalytic activity/Vol]13 U/LCritically zci94-42Rvo [facility] RehabilitationComment on above:Performed By: #### CVDAGS #### [facility] [address] [place] [address] Dr. Leni Henderson gap [Moles/Vol]10.6 mmol/LNormalThe [facility] on above:Performed By: #### CVDAGS #### [facility] [address] [place] [address] Dr. Leni Boland [Catalytic activity/Vol]9 U/LCritically kjo51-11Qkf [facility] RehabilitationComment on above:Performed By: #### CVDAGS #### [facility] [address] [address] [address] Leni HamlinBilirubin [Mass/Vol]0.3 mg/dLNormal0.2-1.0[facility] Comment on above:Performed By: #### CVDAGS #### [facility] [address] [place] [address] Dr. Leni HamlinCalcium [Mass/Vol]8.5 mg/dLNormal8.5-10.1The [facility] Comment on above:Performed By: #### CVDAGS #### [facility] [address] [place] [address] Dr. Leni HamlinChloride [Moles/Vol]104 mmol/LDqweta93-525BqcPaulding [facility] Hospital Comment on above:Performed By: #### CVDAGS #### [facility] [address] [place] [address] Dr. Leni HamlinCO2 [Moles/Vol]27.5 mmol/NVknymv77.0-32.0The [facility] Comment on above:Performed By: #### CVDAGS #### [facility] [address] [place] [address] Dr. Leni HamlinCreatinine [Mass/Vol]1.26 mg/dLNormal0.70-1.30The [facility] RehabilitationComment on above:Performed By: #### CVDAGS #### [facility] [address] [place] [address] Dr. Leni LesterGFR-AF TURKMEN>60Normal>=60[facility] HospitalComment on above:Performed By: #### CVDAGS #### [facility] [address] [place] [address] Dr. Leni LesterGFR-NON AF XBUYJZUS56 mL/min/1.49d6Lvigrxpngg low>=60The [facility] RehabilitationComment on above:Performed By: #### CVDAGS #### [facility] [address] [place] [address] Dr. Leni HamlinGlobulin (S) [Mass/Vol]3.3 g/dLNoMarymount HospitalComment on above:Performed By: #### CVDAGS #### [facility] [address] [place] [address] Dr. Leni HamlinGlucose [Mass/Vol]122 mg/dLCritically ptib41-563Qqk [facility] RehabilitationComment on above:Performed By: #### CVDAGS #### [facility] [address] [place] [address] Dr. Leni HamlinPotassium [Moles/Vol]4.1 mmol/LNormal3.5-5.1The [facility] Comment on above:Performed By: #### CVDAGS #### [facility] [address] [place] [address] Dr. Leni HamlinProtein [Mass/Vol]5.8 g/dLCritically low6.4-8.2The [facility] RehabilitationComment on above:Performed By: #### CVDAGS #### [facility] [address] [place] [address] Dr. Leni HamlinSodium [Moles/Vol]138 mmol/UNcxoyq523-647Lbg [facility] Comment on above:Performed By: #### CVDAGS #### [facility] [address] [place] [address] Dr. Leni HamlinUrea nitrogen [Mass/Vol]20.0 mg/dLCritically high7.0-18.0The [facility] RehabilitationComment on above:Performed By: #### CVDAGS #### [facility] [address] [place] [address] Dr. Leni HamlinUrea nitrogen/Creatinine [Mass ratio]15.9 mg/mgNoMarymount HospitalComment on above:Performed By: #### CVDAGS #### [facility] [address] [place] [address] Dr. Leni AbreuC AUTO DIFFon [id number] #0.1 103/ulNormal0.0-0.1The [facility] RehabilitationComment on above:Performed By: #### CMP, CRP #### [facility] [address] [address] [address] Leni HamlinBasophils/100 WBC (Bld)0.3 %Normal0.2-2.0The [facility] Comment on above:Performed By: #### CMP, CRP #### [facility] [address] [place] [address] Dr. Leni Richards #0.2 103/ulNormal0.0-0.7The [facility] RehabilitationComment on above: Performed By: #### CMP, CRP #### [facility] [address] [place] [address] Dr. Leni Lesterosinophils/100 WBC (Bld)0.8 %Critically low0.9-7.0The [facility] RehabilitationComment on above:Performed By: #### CMP, CRP #### [facility] [address] [place] [address] Dr. Leni Lesterrythrocyte distribution width (RBC) [Ratio]13.6 %Evtewk18.0-15.0 The [facility] RehabilitationComment on above:Performed By: #### CMP, CRP #### [facility] [address] [place] [address] Dr. Leni HamlinHematocrit (Bld) [Volume fraction]49.0 %Rkauao16.0-54.0The [facility] RehabilitationComment on above:Performed By: #### CMP, CRP #### [facility] [address] [place] [address] Dr. Leni HamlinHemoglobin (Bld) [Mass/Vol]16.0 g/yTKjlwce00.0-18.0The [facility] RehabilitationComment on above:Performed By: #### CMP, CRP #### [facility] [address] [place] [address] Dr. Leni Spencer #0.24 10e3/ulCritically high0.00-0.03The [facility] Comment on above:Performed By: #### CMP, CRP #### [facility] [address] [place] [address] Dr. Leni Spencer %1.2 %Critically high0.0-0.5The [facility] RehabilitationComment on above:Performed By: #### CMP, CRP #### [facility] [address] [place] [address] Dr. Leni Leija #1.6 103/ulNormal1.2-3.8The [facility] RehabilitationComment on above:Performed By: #### CMP, CRP #### [facility] [address] [place] [address] Dr. Leni Johnsonhocytes/100 WBC (Bld)8.0 %Critically low20.5-60.0The [facility] RehabilitationComment on above:Performed By: #### CMP, CRP #### [facility] [address] [place] [address] Dr. Leni Rojas DIFF REQNONormalThe [facility] RehabilitationComment on above: Performed By: #### CMP, CRP #### [facility] [address] [place] [address] Dr. Leni Wen (RBC) [Entitic mass]29.4 rpUbcukg19.9-34.0The [facility] RehabilitationComment on above:Performed By: #### CMP, CRP #### [facility] [address] [place] [address] Dr. Leni Upton (RBC) [Mass/Vol]32.7 g/vIArptst73.9-35.2The [facility] RehabilitationComment on above:Performed By: #### CMP, CRP #### [facility] [address] [place] [address] Dr. Leni Upton (RBC) [Entitic vol]90.1 qDSwgrqo33.0-94.0The [facility] RehabilitationComment on above:Performed By: #### CMP, CRP #### [facility] [address] [place] [address] Dr. Leni Mane #1.0 103/ulCritically high0.3-0.8The [facility] Comment on above:Performed By: #### CMP, CRP #### [facility] [address] [place] [address] Dr. Leni Sandovalocytes/100 WBC (Bld)5.1 %Normal1.7-12.0The [facility] Comment on above:Performed By: #### CMP, CRP #### [facility] [address] [place] [address] Dr. Leni Mayen #16.8 103/ulCritically high1.4-6.5The [facility] Comment on above:Performed By: #### CMP, CRP #### [facility] [address] [place] [address] Dr. Leni Coburnutrophils/100 WBC (Bld)84.6 %Critically high43.0-75.0The [facility] RehabilitationComment on above:Performed By: #### CMP, CRP #### [facility] [address] [place] [address] Dr. Leni Wright mean volume (Bld) [Entitic vol]9.7 fLNormal9.5-13.5The [facility] RehabilitationComment on above:Performed By: #### CMP, CRP #### [facility] [address] [place] [address] Dr. Leni HamlinPLT138 103/ulCritically dia452-830Omn [facility] RehabilitationComment on above:Performed By: #### CMP, CRP #### [facility] [address] [place] [address] Dr. Leni HamlinRBC5.44 106/ulNormal4.70-6.10The [facility] RehabilitationComment on above:Performed By: #### CMP, CRP #### [facility] [address] [place] [address] Dr. Leni HamlinWBC19.8 103/ulCritically high4.0-11.0The [facility] RehabilitationComment on above:Performed By: #### CMP, CRP #### [facility] [address] [place] [address] Dr. Leni MosesSO #0.1 103/ulNormal0.0-0.1The [facility] RehabilitationComment on above:Performed By: #### BMP, BNP #### [facility] [address] [place] [address] Dr. Leni HamlinBasophils/100 WBC (Bld)0.3 %Normal0.2-2.0The [facility] Comment on above:Performed By: #### BMP, BNP #### [facility] [address] [place] [address] Dr. Leni Richards #0.1 103/ulNormal0.0-0.7The [facility] RehabilitationComment on above: Performed By: #### BMP, BNP #### [facility] [address] [place] [address] Dr. Leni Lesterosinophils/100 WBC (Bld)0.7 %Critically low0.9-7.0The [facility] RehabilitationComment on above:Performed By: #### BMP, BNP #### [facility] [address] [place] [address] Dr. Leni Lesterrythrocyte distribution width (RBC) [Ratio]13.6 %Wjwbwz69.0-15.0 The [facility] RehabilitationComment on above:Performed By: #### BMP, BNP #### [facility] [address] [place] [address] Dr. Leni HamlinHematocrit (Bld) [Volume fraction]46.9 %Cbeynl48.0-54.0The [facility] RehabilitationComment on above:Performed By: #### BMP, BNP #### [facility] [address] [place] [address] Dr. Leni HamlinHemoglobin (Bld) [Mass/Vol]15.5 g/xBYmarfa34.0-18.0The [facility] RehabilitationComment on above:Performed By: #### BMP, BNP #### [facility] [address] [place] [address] Dr. Leni Spencer #0.16 10e3/ulCritically high0.00-0.03The [facility] Comment on above:Performed By: #### BMP, BNP #### [facility] [address] [place] [address] Dr. Leni Spencer %0.9 %Critically high0.0-0.5The [facility] RehabilitationComment on above:Performed By: #### BMP, BNP #### [facility] [address] [place] [address] Dr. Leni Leija #1.8 103/ulNormal1.2-3.8The [facility] RehabilitationComment on above:Performed By: #### BMP, BNP #### [facility] [address] [place] [address] Dr. Leni Johnsonhocytes/100 WBC (Bld)9.7 %Critically low20.5-60.0The [facility] RehabilitationComment on above:Performed By: #### BMP, BNP #### [facility] [address] [place] [address] Dr. Leni Rojas DIFF REQNONormalThe [facility] RehabilitationComment on above: Performed By: #### BMP, BNP #### [facility] [address] [place] [address] Dr. Leni Upton (RBC) [Entitic mass]29.2 xfCwpeui75.9-34.0The [facility] RehabilitationComment on above:Performed By: #### BMP, BNP #### [facility] [address] [place] [address] Dr. Leni Upton (RBC) [Mass/Vol]33.0 g/xIDlhtax70.9-35.2The [facility] RehabilitationComment on above:Performed By: #### BMP, BNP #### [facility] [address] [place] [address] Dr. Leni Upton (RBC) [Entitic vol]88.3 uEMqdkrl89.0-94.0The [facility] RehabilitationComment on above:Performed By: #### BMP, BNP #### [facility] [address] [place] [address] Dr. Leni Mane #1.4 103/ulCritically high0.3-0.8The [facility] Comment on above:Performed By: #### BMP, BNP #### [facility] [address] [place] [address] Dr. Leni Sandovalocytes/100 WBC (Bld)7.3 %Normal1.7-12.0The [facility] Comment on above:Performed By: #### BMP, BNP #### [facility] [address] [place] [address] Dr. Leni Mayen #15.1 103/ulCritically high1.4-6.5The [facility] Comment on above:Performed By: #### BMP, BNP #### [facility] [address] [place] [address] Dr. Leni Coburnutrophils/100 WBC (Bld)81.1 %Critically high43.0-75.0The [facility] For RehabilitationComment on above:Performed By: #### BMP, BNP #### [facility] [address] [place] [address] Dr. Leni Wright mean volume (Bld) [Entitic vol]10.0 fLNormal9.5-13.5The [facility] RehabilitationComment on above:Performed By: #### BMP, BNP #### [facility] [address] [place] [address] Dr. Leni HamlinPLT141 103/ulCritically blj612-597Iis [facility] RehabilitationComment on above:Performed By: #### BMP, BNP #### [facility] [address] [place] [address] Dr. Leni HamlinRBC5.31 106/ulNormal4.70-6.10The [facility] RehabilitationComment on above:Performed By: #### BMP, BNP #### [facility] [address] [place] [address] Dr. Leni HamlinWBC18.7 103/ulCritically high4.0-11.0The [facility] RehabilitationComment on above:Performed By: #### BMP, BNP #### [facility] [address] [place] [address] Dr. Leni Bentley [id number] mg/dLCritically high<=1.0The [facility] RehabilitationComment on above:Performed By: #### CVDAGS #### [facility] [address] [address] [address] Leni Cm 14(COMP METB)on [id number] [Mass/Vol]2.6 g/dL Critically low3.4-5.0The [facility] RehabilitationComment on above:Performed By: #### CMP, CRP #### [facility] [address] [address] [address] Leni HamlinAlbumin/Globulin [Mass ratio]0.8 {ratio}NormalThe [facility] For RehabilitationComment on above:Performed By: #### CMP, CRP #### [facility] [address] [address] [address] Leni Pérez [Catalytic activity/Vol]44 U/LCritically gbg01-147Cpo [facility] RehabilitationComment on above:Performed By: #### CMP, CRP #### [facility] [address] [address] [address] Leni Archer [Catalytic activity/Vol]12 U/LCritically jum39-82Vpv [facility] RehabilitationComment on above:Performed By: #### CMP, CRP #### [facility] [address] [address] [address] Leni Henderson gap [Moles/Vol]8.7 mmol/LNormalThe [facility] RehabilitationComment on above:Performed By: #### CMP, CRP #### [facility] [address] [address] [address] Leni HamlinAST [Catalytic activity/Vol]10 U/LCritically xgn19-73Qfa [facility] RehabilitationComment on above:Performed By: #### CMP, CRP #### [facility] [address] [address] [address] Leni HamlinBilirubin [Mass/Vol]0.8 mg/dLNormal0.2-1.0The [facility] Comment on above:Performed By: #### CMP, CRP #### [facility] [address] [address] [address] Leni HamlinCalcium [Mass/Vol]8.3 mg/dLCritically low8.5-10.1The [facility] RehabilitationComment on above:Performed By: #### CMP, CRP #### [facility] [address] [place] [address] Dr. Leni HamlinChloride [Moles/Vol]103 mmol/TWarjlt64-866Diw [facility] Comment on above:Performed By: #### CMP, CRP #### [facility] [address] [place] [address] Dr. Leni HamlinCO2 [Moles/Vol]28.2 mmol/ZZaihrz28.0-32.0The [facility] Comment on above:Performed By: #### CMP, CRP #### [facility] [address] [place] [address] Dr. Leni HamlinCreatinine [Mass/Vol]1.24 mg/dLNormal0.70-1.30The [facility] RehabilitationComment on above:Performed By: #### CMP, CRP #### [facility] [address] [place] [address] Dr. Leni LesterGFR-AF TURKMEN>60Normal>=60The [facility] RehabilitationComment on above:Performed By: #### CMP, CRP #### [facility] [address] [place] [address] Dr. Leni LesterGFR-NON AF SAYIBPNX73 mL/min/1.40s3Lbyexrbuic low>=60The [facility] RehabilitationComment on above:Performed By: #### CMP, CRP #### [facility] [address] [place] [address] Dr. Leni HamlinGlobulin (S) [Mass/Vol]3.2 g/dLNormalThe [facility] RehabilitationComment on above:Performed By: #### CMP, CRP #### [facility] [address] [place] [address] Dr. Leni HamlinGlucose [Mass/Vol]111 mg/dLCritically gfnt53-011Lvf [facility] RehabilitationComment on above:Performed By: #### CMP, CRP #### [facility] [address] [place] [address] Dr. Leni HamlinPotassium [Moles/Vol]3.9 mmol/LNormal3.5-5.1The [facility] Comment on above:Performed By: #### CMP, CRP #### [facility] [address] [place] [address] Dr. Leni HamlinProtein [Mass/Vol]5.8 g/dLCritically low6.4-8.2The [facility] RehabilitationComment on above:Performed By: #### CMP, CRP #### [facility] [address] [place] [address] Dr. Leni HamlinSodium [Moles/Vol]136 mmol/DSpvgrb331-846Xvu [facility] Comment on above:Performed By: #### CMP, CRP #### [facility] [address] [place] [address] Dr. Leni HamlinUrea nitrogen [Mass/Vol]17.0 mg/dLNormal7.0-18.0The [facility] RehabilitationComment on above:Performed By: #### CMP, CRP #### [facility] [address] [place] [address] Dr. Leni Beatty nitrogen/Creatinine [Mass ratio]13.7 mg/mgNormalThe [facility] RehabilitationComment on above:Performed By: #### CMP, CRP #### [facility] [address] [place] [address] Dr. Leni Patel. DIFF PCRon 2C. DIFFICILE PCRPositiveCritically abnormalNEGATIVEThe [facility] RehabilitationComment on above:Performed By: #### CVDAGS #### [facility] [address] [place] [address] Dr. Leni HamlinCBEloina AUTO DIFFon [id number] #0.0 103/ulNormal0.0-0.1The [facility] RehabilitationComment on above:Performed By: #### CBC #### [facility] [address] [place] [address] Dr. Leni HamlinBasophils/100 WBC (Bld)0.3 %Normal0.2-2.0[facility] Comment on above:Performed By: #### CBC #### [facility] [address] [address] [address] Leni Richards #0.1 103/ulNormal0.0-0.7The [facility] RehabilitationComment on above: Performed By: #### CBC #### [facility] [address] [address] [address] Leni Lesterosinophils/100 WBC (Bld)0.8 %Critically low0.9-7.0The [facility] RehabilitationComment on above:Performed By: #### CBC #### [facility] [address] [place] [address] Dr. Leni Lesterrythrocyte distribution width (RBC) [Ratio]13.4 %Mbtvvt60.0-15.0 The [facility] RehabilitationComment on above:Performed By: #### CBC #### [facility] [address] [place] [address] Dr. Leni HamlinHematocrit (Bld) [Volume fraction]50.4 %Licphr00.0-54.0The [facility] RehabilitationComment on above:Performed By: #### CBC #### [facility] [address] [place] [address] Dr. Leni HamlinHemoglobin (Bld) [Mass/Vol]16.2 g/eRJwjkfm47.0-18.0The [facility] Hospitalment on above:Performed By: #### CBC #### [facility] [address] [place] [address] Dr. Leni Spencer #0.13 10e3/ulCritically high0.00-0.03The [facility] Comment on above:Performed By: #### CBC #### [facility] [address] [place] [address] Dr. Leni Spencer %0.9 %Critically high0.0-0.5The [facility] RehabilitationComment on above:Performed By: #### CBC #### [facility] [address] [place] [address] Dr. Leni Johnson #1.7 103/ulNormal1.2-3.8The [facility] HospitalComment on above:Performed By: #### CBC #### [facility] [address] [address] [address] Leni Thibodeauxmphocytes/100 WBC (Bld)11.1 %Critically low20.5-60.0The [facility] RehabilitationComment on above:Performed By: #### CBC #### [facility] [address] [address] [address] Leni Rojas DIFF REQNONormalThe [facility] RehabilitationComment on above: Performed By: #### CBC #### [facility] [address] [address] [address] Leni Upton (RBC) [Entitic mass]28.8 yxJbguck09.9-34.0The [facility] RehabilitationComment on above:Performed By: #### CBC #### [facility] [address] [place] [address] Dr. Leni Upton (RBC) [Mass/Vol]32.1 g/xEKcwpsw83.9-35.2The [facility] RehabilitationComment on above:Performed By: #### CBC #### [facility] [address] [place] [address] Dr. Leni Upton (RBC) [Entitic vol]89.7 tMMmeqyl03.0-94.0The [facility] RehabilitationComment on above:Performed By: #### CBC #### [facility] [address] [place] [address] Dr. Leni Mane #1.5 103/ulCritically high0.3-0.8ThHolmes [facility] Comment on above:Performed By: #### CBC #### [facility] [address] [place] [address] Dr. Leni Sandovalocytes/100 WBC (Bld)9.8 %Normal1.7-12.0[facility] Comment on above:Performed By: #### CBC #### [facility] [address] [place] [address] Dr. Leni Mayen #11.7 103/ulCritically high1.4-6.5ThHolmes [facility] Comment on above:Performed By: #### CBC #### [facility] [address] [address] [address] Leni Coburnutrophils/100 WBC (Bld)77.1 %Critically high43.0-75.0The [facility] RehabilitationComment on above:Performed By: #### CBC #### [facility] [address] [address] [address] Leni HamlinPlatelet mean volume (Bld) [Entitic vol]9.9 fLNormal9.5-13.5The [facility] RehabilitationComment on above:Performed By: #### CBC #### [facility] [address] [place] [address] Dr. Leni HamlinPLT156 103/ydEgvngk075-653Ekr [facility] RehabilitationComment on above: Performed By: #### CBC #### [facility] [address] [place] [address] Dr. Leni HamlinRBC5.62 106/ulNormal4.70-6.10The [facility] RehabilitationComment on above:Performed By: #### CBC #### [facility] [address] [place] [address] Dr. Leni HamlinWBC15.2 103/ulCritically high4.0-11.0The [facility] RehabilitationComment on above:Performed By: #### CBC #### [facility] [address] [place] [address] Dr. Leni Bentley 94-15-6302ZQN4.6 mg/dLCritically high<=1.0The [facility] RehabilitationComment on above:Performed By: #### CRP #### [facility] [address] [place] [address] Dr. Leni Cm 14(COMP METB)on [id number] [Mass/Vol]2.8 g/dL Critically low3.4-5.0The [facility] RehabilitationComment on above:Performed By: #### CRP #### [facility] [address] [place] [address] Dr. Leni HamlinAlbumin/Globulin [Mass ratio]0.9 {ratio}NormalThe [facility] RehabilitationComment on above:Performed By: #### CRP #### [facility] [address] [place] [address] Dr. Leni Pérez [Catalytic activity/Vol]45 U/LCritically jbp91-522Myc [facility] RehabilitationComment on above:Performed By: #### CRP #### [facility] [address] [address] [address] Leni Archer [Catalytic activity/Vol]17 U/ZQscncp73-30Dlg [facility] RehabilitationComment on above:Performed By: #### CRP #### [facility] [address] [place] [address] Dr. Leni Danielon gap [Moles/Vol]8.4 mmol/LNormalThe [facility] RehabilitationComment on above:Performed By: #### CRP #### [facility] [address] [place] [address] Dr. Leni HamlinAST [Catalytic activity/Vol]9 U/LCritically lfj55-14Uaq [facility] RehabilitationComment on above:Performed By: #### CRP #### [facility] [address] [address] [address] Leni HamlinBilirubin [Mass/Vol]0.6 mg/dLNormal0.2-1.0The [facility] Comment on above:Performed By: #### CRP #### [facility] [address] [place] [address] Dr. Leni HamlinCalcium [Mass/Vol]8.6 mg/dLNormal8.5-10.1The [facility] Comment on above:Performed By: #### CRP #### [facility] [address] [address] [address] Leni HamlinChloride [Moles/Vol]104 mmol/GRrogng67-602Ttm [facility] Comment on above:Performed By: #### CRP #### [facility] [address] [place] [address] Dr. Leni HamlinCO2 [Moles/Vol]29.6 mmol/CWgwsxe04.0-32.0The [facility] Comment on above:Performed By: #### CRP #### [facility] [address] [address] [address] Leni HamlinCreatinine [Mass/Vol]1.23 mg/dLNormal0.70-1.30[facility] HospitalComment on above:Performed By: #### CRP #### [facility] [address] [address] [address] Leni LesterGFR-AF TURKMEN>60Normal>=60The [facility] RehabilitationComment on above:Performed By: #### CRP #### [facility] [address] [address] [address] Leni LesterGFR-NON AF GAUTGALH14 mL/min/1.99l9Imgfdabmkm low>=60The [facility] RehabilitationComment on above:Performed By: #### CRP #### [facility] [address] [address] [address] Leni HamlinGlobulin (S) [Mass/Vol]3.0 g/dLNormalThe [facility] RehabilitationComment on above:Performed By: #### CRP #### [facility] [address] [address] [address] Leni HamlinGlucose [Mass/Vol]113 mg/dLCritically vmbt50-976Eah [facility] RehabilitationComment on above:Performed By: #### CRP #### [facility] [address] [address] [address] Leni HamlinPotassium [Moles/Vol]4.0 mmol/LNormal3.5-5.1The [facility] Comment on above:Performed By: #### CRP #### [facility] [address] [address] [address] Leni HamlinProtein [Mass/Vol]5.8 g/dLCritically low6.4-8.2The [facility] RehabilitationComment on above:Performed By: #### CRP #### [facility] [address] [address] [address] Leni HamlinSodium [Moles/Vol]138 mmol/WPxcqtn149-188Fbp [facility] Comment on above:Performed By: #### CRP #### [facility] [address] [place] [address] Dr. Leni Beatty nitrogen [Mass/Vol]17.0 mg/dLNormal7.0-18.0The [facility] RehabilitationComment on above:Performed By: #### CRP #### [facility] [address] [place] [address] Dr. Leni Beatty nitrogen/Creatinine [Mass ratio]13.8 mg/mgNormalThe [facility] RehabilitationComment on above:Performed By: #### CRP #### [facility] [address] [place] [address] Dr. Leni Rush AUTO DIFFon [id number] #0.1 103/ulNormal0.0-0.1The [facility] RehabilitationComment on above:Performed By: #### CVDAGS #### [facility] [address] [place] [address] Dr. Leni HamlinBasophils/100 WBC (Bld)0.4 %Normal0.2-2.0[facility] Comment on above:Performed By: #### CVDAGS #### [facility] [address] [place] [address] Dr. Leni Richards #0.1 103/ulNormal0.0-0.7The [facility] RehabilitationComment on above: Performed By: #### CVDAGS #### [facility] [address] [place] [address] Dr. Leni Lesterosinophils/100 WBC (Bld)0.9 %Normal0.9-7.0The [facility] Comment on above:Performed By: #### CVDAGS #### [facility] [address] [place] [address] Dr. Leni Lesterrythrocyte distribution width (RBC) [Ratio]13.2 %Fpvplb92.0-15.0 The [facility] RehabilitationComment on above:Performed By: #### CVDAGS #### [facility] [address] [place] [address] Dr. Leni HamlinHematocrit (Bld) [Volume fraction]53.1 %Krpnbs53.0-54.0The [facility] RehabilitationComment on above:Performed By: #### CVDAGS #### [facility] [address] [place] [address] Dr. Leni HamlinHemoglobin (Bld) [Mass/Vol]17.3 g/kVKegwto59.0-18.0The [facility] RehabilitationComment on above:Performed By: #### CVDAGS #### [facility] [address] [place] [address] Dr. Leni Spencer #0.30 10e3/ulCritically high0.00-0.03The [facility] Comment on above:Performed By: #### CVDAGS #### [facility] [address] [place] [address] Dr. Leni Spencer %2.2 %Critically high0.0-0.5The [facility] RehabilitationComment on above:Performed By: #### CVDAGS #### [facility] [address] [place] [address] Dr. Leni Leija #1.5 103/ulNormal1.2-3.8The [facility] RehabilitationComment on above:Performed By: #### CVDAGS #### [facility] [address] [place] [address] Dr. Leni Johnsonhocytes/100 WBC (Bld)10.5 %Critically low20.5-60.0The [facility] RehabilitationComment on above:Performed By: #### CVDAGS #### [facility] [address] [place] [address] Dr. Leni HamlinMANUAL DIFF REQNONormalThe [facility] RehabilitationComment on above: Performed By: #### CVDAGS #### [facility] [address] [place] [address] Dr. Leni Wen (RBC) [Entitic mass]29.0 ueDyjfmx87.9-34.0The [facility] RehabilitationComment on above:Performed By: #### CVDAGS #### [facility] [address] [place] [address] Dr. Leni UptonHC (RBC) [Mass/Vol]32.6 g/lLAxfdpe86.9-35.2The [facility] RehabilitationComment on above:Performed By: #### CVDAGS #### [facility] [address] [place] [address] Dr. Leni UptonV (RBC) [Entitic vol]88.9 pXRduscd34.0-94.0The [facility] HospitalComment on above:Performed By: #### CVDAGS #### [facility] [address] [place] [address] Dr. Leni Mane #0.8 103/ulNormal0.3-0.8The [facility] RehabilitationComment on above:Performed By: #### CVDAGS #### [facility] [address] [place] [address] Dr. Leni Sandovalocytes/100 WBC (Bld)6.0 %Normal1.7-12.0The [facility] Comment on above:Performed By: #### CVDAGS #### [facility] [address] [place] [address] Dr. Leni Mayen #11.2 103/ulCritically high1.4-6.5The [facility] Comment on above:Performed By: #### CVDAGS #### [facility] [address] [place] [address] Dr. Leni Coburnutrophils/100 WBC (Bld)80.0 %Critically high43.0-75.0The [facility] RehabilitationComment on above:Performed By: #### CVDAGS #### [facility] [address] [place] [address] Dr. Leni Estebanlet mean volume (Bld) [Entitic vol]9.6 fLNormal9.5-13.5The [facility] RehabilitationComment on above:Performed By: #### CVDAGS #### [facility] [address] [place] [address] Dr. Leni HamlinPLT186 103/fxIcfqbh937-227Ghk [facility] Hospital For RehabilitationComment on above: Performed By: #### CVDAGS #### [facility] [address], [place] [address] Dr. Leni HamlinRBC5.97 106/ulNormal4.70-6.10The [facility] For RehabilitationComment on above:Performed By: #### CVDAGS #### [facility] [address], [place] [address] Dr. Leni HamlinWBC13.9 103/ulCritically high4.0-11.0The [facility] For RehabilitationComment on above:Performed By: #### CVDAGS #### [facility] [address] [place] [address] [address] [address] Leni HamlinCT ABD/PELV W CONon [id number] ABD/PELV W CONCT ABDOMEN AND PELVIS WITH CONTRAST HISTORY: Abdominal pain. COMPARISON: None. [...] Electronically authenticated by: RAJESH CHACON Date: 2022-09-29 12:51NoMarymount HospitalCovid-19 PCR (CVDTBH)on [id number]-CoV-2 (COVID-19) RNA VENESSA+probe Ql (Unsp spec)Not detectedNormalNOT DETECTEDThe [facility] Comment on above:Result Comment: When diagnostic testing is negative, the [...] for this test is supported by the Commercial Administrator of Health and Human Service's declaration that circumstances exist to justify the emergency use of in vitro diagnostics for the detection and/or diagnosis of the virus that causes COVID-19. This EUA will remain in effect for the duration of the COVID-19 declaration justifying emergency of IVDs, unless it is terminated or revoked by the FDA (after which the test may no longer be used).Performed By: #### BMP, BNP #### [facility] [address] [place] [address] Dr. Leni Carter PANEL (PCR)on [id number] F 40/41Not detectedNormal NOT DETECTEDThe [facility] For RehabilitationComment on above:Performed By: #### CRP #### [facility] [address] [place] [address] Dr. Leni HamlinAstrovirusNot detectedNormalNOT DETECTEDThe [facility] Comment on above:Performed By: #### CRP #### [facility] [address] [place] [address] Dr. Leni Patel. Diff toxin A/BNot detectedNormalNOT DETECTEDThe [facility] For RehabilitationComment on above:Performed By: #### CRP #### [facility] [address] [place] [address] Dr. Leni HenriquezpylobacterNot detectedNormalNOT DETECTEDThe [facility] Comment on above:Performed By: #### CRP #### [facility] [address] [place] [address] Dr. Leni HamlinCryptosporidiumNot detectedNormalNOT DETECTEDThe [facility] For RehabilitationComment on above:Performed By: #### CRP #### [facility] [address] [place] [address] Dr. Leni Solanoos. CayetanensisNot detectedNormalNOT DETECTEDThe [facility] For RehabilitationComselect specialty hospital-[facility] on above:Performed By: #### CRP #### [facility] [address] [place] [address] [address] Leni Tamyao Coli C198Ode ApplicableNormalNot ApplicableThe [facility] For RehabilitationComselect specialty hospital-[facility] on above:Performed By: #### CRP #### [facility] [address] [address] [address] Leni Lester. histolyticaNot detectedNormalNOT DETECTEDThe [facility] Comment on above:Performed By: #### CRP #### [facility] [address] [address] [address] Leni LesterAECNot detectedNormalNOT DETECTEDThe [facility] RehabilitationComselect specialty [facility] on above:Performed By: #### CRP #### [facility] [address] [address] [address] Leni LesterIECNomid detectedNormalNOT DETECTEDThe [facility] For RehabilitationComselect specialty hospital-[facility] on above:Performed By: #### CRP #### [facility] [address] [address] [address] Leni LesterPECNot detectedNormalNOT DETECTEDThe [facility] For RehabilitationComselect specialty hospital-[facility] on above:Performed By: #### CRP #### [facility] [address] [address] [address] Leni LesterTECNomid detectedNormalNOT DETECTEDThe [facility] For RehabilitationComselect specialty hospital-[facility] on above:Performed By: #### CRP #### [facility] [address] [address] [address] Leni Deleon. LambliaNot detectedNormalNOT DETECTEDThe [facility] Comment on above:Performed By: #### CRP #### [facility] [address] [address] [address] Leni Eastman CONTROLSPASSEDPomerene HospitalComment on above:Performed By: #### CRP #### [facility] [address] [address] [address] Leni Valencia RAGHU HEADERGI PANEL BACTERIAPomerene Hospital Comment on above:Performed By: #### CRP #### [facility] [address] [address] [address] Leni Carpenter ECOLIGI PANEL DIARRHEAGENIC E.COLI / SHIGELLAPomerene HospitalComment on above:Performed By: #### CRP #### [facility] [address] [address] [address] Leni Carpenter INFOSEE BELOWPomerene HospitalComment on above: Result Comment: EAEC- Enteroaggregative E. Coli EPEC- Enteropathogenic E. Coli ETEC- Enterotoxigenic E. Coli lt/st STEC- Shigella-like toxin-producing E. Coli stx1/stx2 EIEC- Shigella/Enteroinvasive E. ColiPerformed By: #### CRP #### [facility] [address] [address] [address] Leni Carpenter PARASITESGI PANEL PARASITESPomerene Hospital Comment on above:Performed By: #### CRP #### [facility] [address] [address] [address] Leni Carpenter VIRUSGI PANEL VIRUSESPomerene HospitalComment on above:Performed By: #### CRP #### [facility] [address] [place] [address] [address] Leni Hernandezrovirus GI/GIINot detectedNormalNOT DETECTEDThe [facility] For RehabilitationComment on above:Performed By: #### CRP #### [facility] [address] [address] [address] Leni Russell. ShigelloidesNot detectedNormalNOT DETECTEDThe [facility] For RehabilitationComment on above:Performed By: #### CRP #### [facility] [address] [address] [address] Leni HamlinRotavirus ANot detectedNormalNOT DETECTEDPaulding County Hospital Comment on above:Performed By: #### CRP #### [facility] [address] [place] [address] [address] Leni HamlinSalmonellaNot detectedNormalNOT DETECTEDThe [facility] Comment on above:Performed By: #### CRP #### [facility] [address] [place] [address] [address] Leni HamlinSapovirusNot detectedNormalNOT DETECTEDPaulding County Hospital Comment on above:Performed By: #### CRP #### [facility] [address] [address] [address] Leni HamlinSTECNot detectedNormalNOT DETECTEDThe [facility] For RehabilitationComment on above:Performed By: #### CRP #### [facility] [address] [address] [address] Leni ChancebrioNot detectedNormalNOT DETECTEDThe [facility] For RehabilitationComment on above:Performed By: #### CRP #### [facility] [address] [address] [address] Leni HamlinVibrio CholeraNot detectedNormalNOT DETECTEDThe [facility] Comment on above:Performed By: #### CRP #### [facility] [address] [place] [address] Dr. Leni Agustin. EnterocoliticaNot detectedNormalNOT DETECTEDThe [facility] For RehabilitationComment on above:Performed By: #### CRP #### [facility] [address] [place] [address] Dr. Leni HamlinPROF CHEM 8 (BAS METB)on 53-73-1428Qamel gap [Moles/Vol]5.8 mmol/LNormalThe [facility] For RehabilitationComment on above:Performed By: #### CVDAGS #### [facility] [address] [place] [address] Dr. Leni HamlinCalcium [Mass/Vol]9.0 mg/dLNormal8.5-10.1[facility] Comment on above:Performed By: #### CVDAGS #### [facility] [address] [place] [address] Dr. Leni HamlinChloride [Moles/Vol]103 mmol/DEgldhg45-189Hub [facility] Comment on above:Performed By: #### CVDAGS #### [facility] [address] [address] [address] Leni HamlinCO2 [Moles/Vol]31.7 mmol/CHgocqx59.0-32.0The [facility] Comment on above:Performed By: #### CVDAGS #### [facility] [address] [place] [address] Dr. Leni HamlinCreatinine [Mass/Vol]1.28 mg/dLNormal0.70-1.30The [facility] For RehabilitationComment on above:Performed By: #### CVDAGS #### [facility] [address] [place] [address] Dr. Leni LesterGFR-AF TURKMEN>60Normal>=60The [facility] For RehabilitationComment on above:Performed By: #### CVDAGS #### [facility] [address] [place] [address] Dr. Leni LesterGFR-NON AF VNSEWVKW15 mL/min/1.93n9Cwencgcgvd low>=60The [facility] For RehabilitationComment on above:Performed By: #### CVDAGS #### [facility] [address] [place] [address] Dr. Leni HamlinGlucose [Mass/Vol]130 mg/dLCritically cuzz19-316Ifm [facility] For RehabilitationComment on above:Performed By: #### CVDAGS #### [facility] [address] [place] [address] Dr. Leni HamlinPotassium [Moles/Vol]4.5 mmol/LNormal3.5-5.1[facility] Comment on above:Performed By: #### CVDAGS #### [facility] [address] [place] [address] Dr. Leni HamlinSodium [Moles/Vol]136 mmol/BXksnla074-189AaqPaulding County Hospital Comment on above:Performed By: #### CVDAGS #### [facility] [address] [place] [address] Dr. Leni HamlinUrea nitrogen [Mass/Vol]23.0 mg/dLCritically high7.0-18.0The [facility] For RehabilitationComment on above:Performed By: #### CVDAGS #### [facility] [address] [place] [address] Dr. Yilan ChangUrea nitrogen/Creatinine [Mass ratio]18.0 mg/mgNormalThe [facility] RehabilitationComment on above:Performed By: #### CVDAGS #### [facility] [address] [place] [address] [address] Leni Altmand-19 PCR (CVDTB)on [id number]-CoV-2 (COVID-19) RNA VENESSA+probe Ql (Unsp spec)Not detectedNormalNOT DETECTEDThe [facility] Comment on above:Result Comment: When diagnostic testing is negative, the [...] for this test is supported by the [place] of Health and Human Service's declaration that circumstances exist to justify the emergency use of in vitro diagnostics for the detection and/or diagnosis of the virus that causes COVID-19. This EUA will remain in effect for the duration of the COVID-19 declaration justifying emergency of IVDs, unless it is terminated or revoked by the FDA (after which the test may no longer be used).Performed By: #### CMP, CRP #### [facility] [address] [address] [address] Leni Bhandari-19 PCR (CVDTB)on [id number]-CoV-2 (COVID-19) RNA VENESSA+probe Ql (Unsp spec)DetectedCritically abnormalNOT DETECTEDThe [facility] For RehabilitationComment on above:Result Comment: This test is not yet approved or cleared by the [place] FDA. When there are no FDA-approved or cleared tests available, and other criteria are met, FDA can make tests available under an emergency access mechanism called an Emergency Use Authorization (EUA). The EUA for this test is supported by the Commercial Administrator of Health and Human Service's (HHS's) declaration [...] no longer be used). Performed By: #### CRP #### [facility] [address] [place] [address] Dr. Leni HamlinCovid-19 PCR (CVDLONGWO[facility])on 31-31-3032NQSA-CoV-2 (COVID-19) RNA VENESSA+probe Ql (Unsp spec)Not detectedNormalNOT DETECTEDThe [facility] Comment on above:Result Comment: This test is not yet approved or cleared by the [place] FDA. When there are no FDA-approved or cleared tests available, and other criteria are met, FDA can make tests available under an emergency access mechanism called an Emergency Use Authorization (EUA). The EUA for this test is supported by the [place] of Health and Human Service's (HHS's) declaration that circumstances exist to justify the emergency use of in vitro diagnostics for the detection and/or diagnosis of the virus that causes COVID- 19. This EUA will remain in effect (meaning [...] of clinical signs and symptoms consistent with SARS-CoV-2.Performed By: #### CVDTBH #### [facility] [address] [place], [place] [id number] Dr. Leni HamlinSYMPTOMATIC COVID-19 ANTIGENon [id number] StatementSEE BELOW NormalPaulding County HospitalComment on above:Result Comment: This test has not been FDA [...] declaration is terminated or authorization is revoked sooner.Performed By: #### CVDAGS #### [facility] [address] [place] [address] Dr. Leni Del Rosario-CoV-2 (COVID-19) RNA VENESSA+probe Ql (Unsp spec)NegativeNormal NEGATIVEThe [facility] For RehabilitationComment on above:Performed By: #### CVDAGS #### [facility] [address] [place] [address] Dr. Leni HamlinCardiovascular Lab Reporton [id number] Lab Report [facility] Patient Name: Jm [facility] A MR #: [id number] Department of Physician: Modesto Singh MD Medicine Service Date: 03/22/2022 Division of Birthdate: 1950 Cardiology Room #: Adult Cardiovascular Services [facility] [address] [place] [address] Cardiovascular Laboratory Report PACEMAKER IMPLANT PROCEDURE NOTE [...] using modified seldinger technique using a 5 [place]uran micro-puncture needle on two occasions and 0.35 [...] pocket was created for the device. 6 [place] Safesheaths were placed over the wire. An active fixation Biotronik pacing lead was then delivered through the 6Fsheath to the right ventricle. After confirmation of lead position on orthogonal views (RUBALCAVA and FAROESE) to confirm septal position, the screw was [...] lead position on orthogonal views (RUBALCAVA and FAROESE), the screw was activated. After confirmation of [...] below. [facility]. No immediate procedural complications were noted. Device info: Biotronik Edora Model# 8DR-T Serial# [id number] RA lead: Model# Biotronik Solia S45 Serial# [id number] Sensin.5mV Threshold: 0.6V@0.5ms Impedance: 507 Ohms RV lead: Model# Biotronik Solia S53 Serial# [id number] Sensin.5mV Threshold: 0.6V@0.4ms Impedance: 663 Ohms POST [...] MD Cardiac Electrophysiology El (more content not included)...NormalThe [facility] SPUTUM CULTUREon 78-18-8887Ynqrclpgzd cells LM Ql (Urine sed)[facility]tering Health PrebleComment on above:Performed By: #### BMP, BNP #### [facility] [address] [place] [address] [address] Leni HamlinGram Stain EvaluationCommentPomerene HospitalComment on above:Result Comment: This specimen is of good quality and is acceptable for routine bacterial culture.Performed By: #### BMP, BNP #### [facility] [address] [place] [address] [address] Leni Marshall Respiratory CultureFinal reportPomerene Hospital Comment on above:Performed By: #### BMP, BNP #### [facility] [address] [place] [address] [address] Leni Pruittult 1ComCleveland Clinic Marymount HospitalComment on above:Result Comment: Few gram negative rods.Performed By: #### BMP, BNP #### [facility] [address] [place] [address] Dr. Leni Syed Comment: Routine respiratory floraResult 2CMercy Health St. Anne HospitalComselect specialty hospital-[place] on above:Result Comment: Few gram positive cocci Performed By: #### BMP, BNP #### [facility] [address] [place] [address] Dr. Leni Syed [address]CMer[address] Health [address] Anne HospitalComment on above:Result Comment: Rare gram positive rodsPerformed By: #### BMP, BNP #### [facility] [address] [place] [address] Dr. Leni Syed 4Pomerene HospitalComment on above:Performed By: #### BMP, BNP #### [facility] [address] [place] [address] Dr. Leni Polo Blood CellsFewPomerene HospitalComment on above: Performed By: #### BMP, BNP #### [facility] [address] [place] [address] Dr. Leni Horta [id number] peptide B (Bld) [Mass/Vol]429.0 pg/mL Normal<=900.0The [facility] on above:Performed By: #### CMP, CRP #### [facility] [address] [place] [address] Dr. Leni Rush AUTO DIFFon [id number] #0.0 103/ulNormal0.0-0.1The [facility] For RehabilitationComment on above:Performed By: #### CVDAGS #### [facility] [address] [place] [address] Dr. Leni Mcadamsphils/100 WBC (Bld)0.2 %Normal0.2-2.0The [facility] Comment on above:Performed By: #### CVDAGS #### [facility] [address] [place] [address] Dr. Leni Richards #0.0 103/ulNormal0.0-0.7The Ricky HospitalComment on above: Performed By: #### CVDAGS #### [facility] [address] [place] [address] Dr. Leni Lesterosinophils/100 WBC (Bld)0.0 %Critically low0.9-7.0The [facility] For RehabilitationComment on above:Performed By: #### CVDAGS #### [facility] [address] [place] [address] Dr. Leni Lesterrythrocyte distribution width (RBC) [Ratio]13.6 %Xkyyiy45.0-15.0 The [facility] For RehabilitationComment on above:Performed By: #### CVDAGS #### [facility] [address] [place] [address] Dr. Leni HamlinHematocrit (Bld) [Volume fraction]44.5 %Dvzmah02.0-54.0The [facility] For RehabilitationComment on above:Performed By: #### CVDAGS #### [facility] [address] [place] [address] Dr. Leni HamlinHemoglobin (Bld) [Mass/Vol]13.8 g/dLCritically low14.0-18.0The [facility] For RehabilitationComment on above:Performed By: #### CVDAGS #### [facility] [address] [place] [address] Dr. Leni Spencer #0.35 10e3/ulCritically high0.00-0.03[facility] Comment on above:Performed By: #### CVDAGS #### [facility] [address] [place] [address] Dr. Leni Spencer %2.4 %Critically high0.0-0.5The [facility] For RehabilitationComment on above:Performed By: #### CVDAGS #### [facility] [address] [place] [address] Dr. Leni Leija #0.6 103/ulCritically low1.2-3.8The [facility] Comment on above:Performed By: #### CVDAGS #### [facility] [address] [place] [address] Dr. Yilan ChangLymphocytes/100 WBC (Bld)4.1 %Critically low20.5-60.0The [facility] For RehabilitationComment on above:Performed By: #### CVDAGS #### [facility] [address] [place] [address] Dr. Leni Rojas DIFF REQNONormalThe [facility] For RehabilitationComment on above: Performed By: #### CVDAGS #### [facility] [address] [place] [address] Dr. Leni Upton (RBC) [Entitic mass]29.4 qgGuxtvt49.9-34.0The [facility] For RehabilitationComment on above:Performed By: #### CVDAGS #### [facility] [address] [place] [address] Dr. Leni Upton (RBC) [Mass/Vol]31.0 g/tYKkbcmt24.9-35.2The [facility] For RehabilitationComment on above:Performed By: #### CVDAGS #### [facility] [address] [place] [address] Dr. Leni Upton (RBC) [Entitic vol]94.7 fLCritically high80.0-94.0The [facility] For RehabilitationComment on above:Performed By: #### CVDAGS #### [facility] [address] [place] [address] Dr. Leni Mane #0.7 103/ulNormal0.3-0.8The [facility] For RehabilitationComment on above:Performed By: #### CVDAGS #### [facility] [address] [place] [address] Dr. Leni Sandovalocytes/100 WBC (Bld)4.7 %Normal1.7-12.0[facility] Comment on above:Performed By: #### CVDAGS #### [facility] [address] [place] [address] Dr. Leni Mayen #12.9 103/ulCritically high1.4-6.5The [facility] Comment on above:Performed By: #### CVDAGS #### [facility] [address] [address] [address] Leni HamlinNeutrophils/100 WBC (Bld)88.6 %Critically high43.0-75.0The [facility] For RehabilitationComment on above:Performed By: #### CVDAGS #### [facility] [address] [address] [address] Leni HamlinPlatelet mean volume (Bld) [Entitic vol]10.2 fLNormal9.5-13.5The [facility] For RehabilitationComment on above:Performed By: #### CVDAGS #### [facility] [address] [place] [address] Dr. Leni HamlinPLT176 103/ywIrummg248-687Fad [facility] RehabilitationComment on above: Performed By: #### CVDAGS #### [facility] [address] [place] [address] Dr. Leni HamlinRBC4.70 106/ulNormal4.70-6.10The [facility] HospitalComment on above:Performed By: #### CVDAGS #### [facility] [address] [place] [address] Dr. Leni HamlinWBC14.6 103/ulCritically high4.0-11.0The [facility] RehabilitationComment on above:Performed By: #### CVDAGS #### [facility] [address] [place] [address] Dr. Leni HamlinPROF CHEM 8 (BAS METB)on 23-12-4820Vnoop gap [Moles/Vol]10.2 mmol/LNormalThe [facility] RehabilitationComment on above:Performed By: #### CMP, CRP #### [facility] [address] [place] [address] Dr. Leni HamlinCalcium [Mass/Vol]8.0 mg/dLCritically low8.5-10.1The [facility] RehabilitationComment on above:Performed By: #### CMP, CRP #### [facility] [address] [place] [address] Dr. Leni HamlinChloride [Moles/Vol]104 mmol/TMswims81-610Vtr [facility] Comment on above:Performed By: #### CMP, CRP #### [facility] [address] [place] [address] Dr. Leni HamlinCO2 [Moles/Vol]28.2 mmol/YDcitim28.0-32.0The [facility] Comment on above:Performed By: #### CMP, CRP #### [facility] [address] [place] [address] Dr. Leni HamlinCreatinine [Mass/Vol]1.36 mg/dLCritically high0.70-1.30The [facility] RehabilitationComment on above:Performed By: #### CMP, CRP #### [facility] [address] [place] [address] Dr. Leni LesterGFR-AF TURKMEN>60Normal>=60The [facility] For RehabilitationComment on above:Performed By: #### CMP, CRP #### [facility] [address] [place] [address] Dr. Leni LesterGFR-NON AF TKJDREPS13 mL/min/1.19j7Mjlspnmmsc low>=60The [facility] RehabilitationComment on above:Performed By: #### CMP, CRP #### [facility] [address] [place] [address] Dr. Leni HamlinGlucose [Mass/Vol]205 mg/dLCritically lfka85-789Mxg [facility] RehabilitationComment on above:Performed By: #### CMP, CRP #### [facility] [address] [place] [address] Dr. Leni HamlinPotassium [Moles/Vol]4.4 mmol/LNormal3.5-5.1The [facility] Comment on above:Performed By: #### CMP, CRP #### [facility] [address] [place] [address] Dr. Leni HamlinSodium [Moles/Vol]138 mmol/BZrwkkp610-269Jol [facility] Comment on above:Performed By: #### CMP, CRP #### [facility] [address] [place] [address] Dr. Leni HamlinUrea nitrogen [Mass/Vol]29.0 mg/dLCritically high7.0-18.0The [facility] RehabilitationComment on above:Performed By: #### CMP, CRP #### [facility] [address] [place] [address] Dr. Leni Beatty nitrogen/Creatinine [Mass ratio]21.3 mg/mgNormalThe [facility] RehabilitationComment on above:Performed By: #### CMP, CRP #### [facility] [address] [address] [address] Leni Horta 28-56-7607Avxkzwzmqss peptide B (Bld) [Mass/Vol]337.0 pg/mL Normal<=900.0The [facility] RehabilitationComment on above:Performed By: #### CRP #### [facility] [address] [place] [address] Dr. Leni Rush AUTO DIFFon [id number] #0.0 103/ulNormal0.0-0.1The [facility] Hospitalment on above:Performed By: #### CMP, CRP #### [facility] [address] [place] [address] Dr. Leni Mosessophils/100 WBC (Bld)0.2 %Normal0.2-2.0The [facility] Comment on above:Performed By: #### CMP, CRP #### [facility] [address] [place] [address] Dr. Leni Richards #0.0 103/ulNormal0.0-0.7The [facility] For RehabilitationComment on above: Performed By: #### CMP, CRP #### [facility] [address] [place] [address] Dr. Leni Lesterosinophils/100 WBC (Bld)0.0 %Critically low0.9-7.0The [facility] For RehabilitationComment on above:Performed By: #### CMP, CRP #### [facility] [address] [place] [address] Dr. Leni Lesterrythrocyte distribution width (RBC) [Ratio]13.6 %Viqeny82.0-15.0 The [facility] For RehabilitationComment on above:Performed By: #### CMP, CRP #### [facility] [address] [place] [address] Dr. Leni HamlinHematocrit (Bld) [Volume fraction]47.8 %Qdqhmf33.0-54.0The [facility] For RehabilitationComment on above:Performed By: #### CMP, CRP #### [facility] [address] [place] [address] Dr. Leni HamlinHemoglobin (Bld) [Mass/Vol]14.6 g/fLTvlixd21.0-18.0The [facility] RehabilitationComment on above:Performed By: #### CMP, CRP #### [facility] [address] [place] [address] Dr. Leni Spencer #0.22 10e3/ulCritically high0.00-0.03[facility] Comment on above:Performed By: #### CMP, CRP #### [facility] [address] [place] [address] Dr. Leni Spencer %1.3 %Critically high0.0-0.5The [facility] RehabilitationComment on above:Performed By: #### CMP, CRP #### [facility] [address] [place] [address] Dr. Leni Leija #0.5 103/ulCritically low1.2-3.8The [facility] Comment on above:Performed By: #### CMP, CRP #### [facility] [address] [place] [address] Dr. Leni Johnsonhocytes/100 WBC (Bld)2.9 %Critically low20.5-60.0The [facility] RehabilitationComment on above:Performed By: #### CMP, CRP #### [facility] [address] [place] [address] Dr. Leni GregorioUAL DIFF REQNONormalThe [facility] RehabilitationComment on above: Performed By: #### CMP, CRP #### [facility] [address] [place] [address] Dr. Leni Wen (RBC) [Entitic mass]29.4 lnIxwhki80.9-34.0The [facility] RehabilitationComment on above:Performed By: #### CMP, CRP #### [facility] [address] [place] [address] Dr. Leni Upton (RBC) [Mass/Vol]30.5 g/iKOhyfyr09.9-35.2The [facility] RehabilitationComment on above:Performed By: #### CMP, CRP #### [facility] [address] [place] [address] Dr. Leni Upton (RBC) [Entitic vol]96.4 fLCritically high80.0-94.0The [facility] RehabilitationComment on above:Performed By: #### CMP, CRP #### [facility] [address] [place] [address] Dr. Leni Mane #1.1 103/ulCritically high0.3-0.8The [facility] Comment on above:Performed By: #### CMP, CRP #### [facility] [address] [place] [address] Dr. Leni Sandovalocytes/100 WBC (Bld)6.4 %Normal1.7-12.0[facility] Comment on above:Performed By: #### CMP, CRP #### [facility] [address] [place] [address] Dr. Leni Mayen #15.2 103/ulCritically high1.4-6.5The [facility] Comment on above:Performed By: #### CMP, CRP #### [facility] [address] [place] [address] Dr. Leni Coburnutrophils/100 WBC (Bld)89.2 %Critically high43.0-75.0The [facility] RehabilitationComment on above:Performed By: #### CMP, CRP #### [facility] [address] [place] [address] Dr. Leni Estebanlet mean volume (Bld) [Entitic vol]10.4 fLNormal9.5-13.5The [facility] RehabilitationComment on above:Performed By: #### CMP, CRP #### [facility] [address] [address] [address] Leni HamlinPLT167 103/qpAptgij995-208Xkf [facility] RehabilitationComment on above: Performed By: #### CMP, CRP #### [facility] [address] [place] [address] Dr. Leni HamlinRBC4.96 106/ulNormal4.70-6.10The [facility] RehabilitationComment on above:Performed By: #### CMP, CRP #### [facility] [address] [place] [address] Dr. Leni HamlinWBC17.0 103/ulCritically high4.0-11.0The [facility] RehabilitationComment on above:Performed By: #### CMP, CRP #### [facility] [address] [place] [address] Dr. Leni HamlinPROF CHEM 8 (BAS METB)on 30-70-9839Tblnm gap [Moles/Vol]7.0 mmol/LNormalThe [facility] RehabilitationComment on above:Performed By: #### CVDAGS #### [facility] [address] [place] [address] Dr. Leni HamlinCalcium [Mass/Vol]8.3 mg/dLCritically low8.5-10.1The [facility] RehabilitationComment on above:Performed By: #### CVDAGS #### [facility] [address] [place] [address] Dr. Leni HamlinChloride [Moles/Vol]102 mmol/HUdlani59-002Fre [facility] Comment on above:Performed By: #### CVDAGS #### [facility] [address] [place] [address] Dr. Leni HamlinCO2 [Moles/Vol]29.6 mmol/FYhpxvb17.0-32.0The [facility] Comment on above:Performed By: #### CVDAGS #### [facility] [address] [place] [address] Dr. Leni HamlinCreatinine [Mass/Vol]1.48 mg/dLCritically high0.70-1.30The [facility] RehabilitationComment on above:Performed By: #### CVDAGS #### [facility] [address] [address] [address] Leni LesterGFR-AF RFFXPPPT00 mL/min/1.90q7Sxxiisjuem low>=60The [facility] RehabilitationComment on above:Performed By: #### CVDAGS #### [facility] [address] [place] [address] Dr. Leni LesterGFR-NON AF CFXBNKVP49 mL/min/1.15q0Rffgbvkcah low>=60The [facility] RehabilitationComment on above:Performed By: #### CVDAGS #### [facility] [address] [place] [address] Dr. Leni HamlinGlucose [Mass/Vol]168 mg/dLCritically gbcm93-509Bra [facility] RehabilitationComment on above:Performed By: #### CVDAGS #### [facility] [address] [place] [address] Dr. Leni HamlinPotassium [Moles/Vol]4.6 mmol/LNormal3.5-5.1The [facility] Comment on above:Performed By: #### CVDAGS #### [facility] [address] [place] [address] Dr. Leni HamlinSodium [Moles/Vol]134 mmol/LCritically zux950-752Nfq [facility] RehabilitationComment on above:Performed By: #### CVDAGS #### [facility] [address] [place] [address] Dr. Leni HamlinUrea nitrogen [Mass/Vol]29.0 mg/dLCritically high7.0-18.0The [facility] RehabilitationComment on above:Performed By: #### CVDAGS #### [facility] [address] [place] [address] Dr. Leni HamlinUrea nitrogen/Creatinine [Mass ratio]19.6 mg/mgNormalThe [facility] RehabilitationComment on above:Performed By: #### CVDAGS #### [facility] [address] [place] [address] Dr. Leni Horta 94-85-5233Udhudljjkzk peptide B (Bld) [Mass/Vol]501.0 pg/mL Normal<=900.0The [facility] RehabilitationComment on above:Performed By: #### BMP, BNP #### [facility] [address] [address] [address] Leni Rush W MANUAL DIFFon [id number] LYMPH #NormalThe [facility] HospitalComment on above:Performed By: #### CVDAGS #### [facility] [address] [place] [address] Dr. Leni ShineICAL LYMPH %NormalThe [facility] HospitalComment on above: Performed By: #### CVDAGS #### [facility] [address] [place] [address] Dr. Leni Antoine #2.1 103/ulCritically high0.0-0.3The [facility] Comment on above:Performed By: #### CVDAGS #### [facility] [address] [place] [address] Dr. Leni Antoine %12 %Critically high0-5The [facility] RehabilitationComment on above:Performed By: #### CVDAGS #### [facility] [address] [place] [address] Dr. Leni Villagran #0.00 103/ulNormal0.00-0.10The [facility] RehabilitationComment on above:Performed By: #### CVDAGS #### [facility] [address] [place] [address] Dr. Leni Villagran %0.0 %Critically low0.2-2.0The [facility] RehabilitationComment on above:Performed By: #### CVDAGS #### [facility] [address] [place] [address] Dr. Leni Middleton #NormalThe [facility] RehabilitationComment on above:Performed By: #### CVDAGS #### [facility] [address] [place] [address] Dr. Leni Middleton %NormalThe [facility] RehabilitationComment on above:Performed By: #### CVDAGS #### [facility] [address] [address] [address] Leni HsiehECTED WBCNormal4.0-11.0The [facility] RehabilitationComment on above: Performed By: #### CVDAGS #### [facility] [address] [address] [address] Leni Link #0.00 103/ulNormal0.00-0.70The [facility] RehabilitationComment on above:Performed By: #### CVDAGS #### [facility] [address] [address] [address] Leni Link%0.0 %Critically low0.9-7.0The [facility] RehabilitationComment on above:Performed By: #### CVDAGS #### [facility] [address] [place] [address] Dr. Leni HamlinHCT51.2 %Ixlpav16.0-54.0The [facility] RehabilitationComment on above: Performed By: #### CVDAGS #### [facility] [address] [address] [address] Leni HamlinHGB15.4 g/lbUzawfe53.0-18.0The [facility] Hospitalment on above: Performed By: #### CVDAGS #### [facility] [address] [place] [address] Dr. Leni Mejia #0.52 103/ulCritically low1.20-3.80The [facility] Comment on above:Performed By: #### CVDAGS #### [facility] [address] [address] [address] Leni Mejia%3.0 %Critically low20.5-60.0The [facility] Hospitalment on above:Performed By: #### CVDAGS #### [facility] [address] [address] [address] Leni HamlinMCH29.6 ddNyiznm39.9-34.0The [facility] RehabilitationComment on above: Performed By: #### CVDAGS #### [facility] [address] [address] [address] Leni UptonHC30.1 g/taYfoqxb01.9-35.2The [facility] RehabilitationComment on above:Performed By: #### CVDAGS #### [facility] [address] [address] [address] Leni UptonV98.5 fLCritically high80.0-94.0The [facility] RehabilitationComment on above:Performed By: #### CVDAGS #### [facility] [address] [place] [address] Dr. Leni Adams #NormalThe [facility] RehabilitationComment on above: Performed By: #### CVDAGS #### [facility] [address] [place] [address] Dr. Leni Adams %NormalThe [facility] RehabilitationComment on above: Performed By: #### CVDAGS #### [facility] [address] [place] [address] Dr. Leni Woodard#0.86 103/ulCritically high0.30-0.80The [facility] on above:Performed By: #### CVDAGS #### [facility] [address] [place] [address] Dr. Leni Woodard%5.0 %Normal1.7-12.0The [facility] RehabilitationComment on above: Performed By: #### CVDAGS #### [facility] [address] [place] [address] Dr. Leni BurnhamV10.0 fLNormal9.5-13.5The [facility] RehabilitationComment on above: Performed By: #### CVDAGS #### [facility] [address] [place] [address] Dr. Leni Mcbride #NormalThe [facility] RehabilitationComment on above:Performed By: #### CVDAGS #### [facility] [address] [place] [address] Dr. Leni Mcbride %NormalThe [facility] RehabilitationComment on above:Performed By: #### CVDAGS #### [facility] [address] [address] [address] Leni HamlinNRBCNormalThe [facility] RehabilitationComment on above:Performed By: #### CVDAGS #### [facility] [address] [address] [address] Leni HamlinPLT161 103/seXhbkca552-898Jdr [facility] RehabilitationComment on above: Performed By: #### CVDAGS #### [facility] [address] [place] [address] Dr. Leni HamlinRBC5.20 106/ulNormal4.70-6.10The [facility] RehabilitationComment on above:Performed By: #### CVDAGS #### [facility] [address] [place] [address] Dr. Leni HamlinRDW13.5 %Xzbolc40.0-15.0The [facility] RehabilitationComment on above: Performed By: #### CVDAGS #### [facility] [address] [place] [address] Dr. Leni Dillard #13.76 103/ulCritically high1.40-6.50The [facility] Comment on above:Performed By: #### CVDAGS #### [facility] [address] [place] [address] Dr. Leni Dillard %80.0 %Critically high43.0-75.0The [facility] RehabilitationComment on above:Performed By: #### CVDAGS #### [facility] [address] [place] [address] Dr. Leni FerreiraBC17.2 103/ulCritically high4.0-11.0The [facility] RehabilitationComment on above:Performed By: #### CVDAGS #### [facility] [address] [place] [address] Dr. Leni Cm CHEM 8 (BAS METB)on 70-23-1874Hzzjv gap [Moles/Vol]12.5 mmol/LNormalThe [facility] RehabilitationComment on above:Performed By: #### CVDAGS #### [facility] [address] [address] [address] Leni HamlinCalcium [Mass/Vol]8.4 mg/dLCritically low8.5-10.1The [facility] RehabilitationComment on above:Performed By: #### CVDAGS #### [facility] [address] [address] [address] Leni HamlinChloride [Moles/Vol]100 mmol/NHkkbyb23-248Vru [facility] Comment on above:Performed By: #### CVDAGS #### [facility] [address] [address] [address] Leni HamlinCO2 [Moles/Vol]26.7 mmol/OCedhjp27.0-32.0The [facility] Comment on above:Performed By: #### CVDAGS #### [facility] [address] [place] [address] Dr. Leni HamlinCreatinine [Mass/Vol]1.87 mg/dLCritically high0.70-1.30The [facility] RehabilitationComment on above:Performed By: #### CVDAGS #### [facility] [address] [address] [address] Leni LesterGFR-AF ZSUUOEKR50 mL/min/1.48k3Zbujewmkcb low>=60The [facility] RehabilitationComment on above:Performed By: #### CVDAGS #### [facility] [address] [address] [address] Leni LesterGFR-NON AF PGWETPIQ24 mL/min/1.79v2Nulptqswyz low>=60[facility] [facility]'S Hospital For RehabilitationComment on above:Performed By: #### CVDAGS #### [facility] [address] [address] [address] Lnei HamlinGlucose [Mass/Vol]222 mg/dLCritically gywe57-488Cld [facility] For RehabilitationComment on above:Performed By: #### CVDAGS #### [facility] [address] [address] [address] Leni HamlinPotassium [Moles/Vol]4.2 mmol/LNormal3.5-5.1[facility] Comment on above:Performed By: #### CVDAGS #### [facility] [address] [address] [address] Leni Singhdium [Moles/Vol]135 mmol/LCritically cae501-339Ikw [facility] For RehabilitationComment on above:Performed By: #### CVDAGS #### [facility] [address] [place] [address] Dr. Leni Beatty nitrogen [Mass/Vol]25.0 mg/dLCritically high7.0-18.0The [facility] For RehabilitationComment on above:Performed By: #### CVDAGS #### [facility] [address] [place] [address] Dr. Leni Beatty nitrogen/Creatinine [Mass ratio]13.4 mg/mgNormalThe [facility] For RehabilitationComment on above:Performed By: #### CVDAGS #### [facility] [address] [place] [address] Dr. Leni Henderson gap [Moles/Vol]10.7 mmol/LNormalThe [facility] Comment on above:Performed By: #### BMP, BNP #### [facility] [address] [place] [address] Dr. Leni HamlinCalcium [Mass/Vol]8.2 mg/dLCritically low8.5-10.1The [facility] For RehabilitationComment on above:Performed By: #### BMP, BNP #### [facility] [address] [place] [address] Dr. Leni HamlinChloride [Moles/Vol]101 mmol/FCnqspj29-927Mej [facility] Comment on above:Performed By: #### BMP, BNP #### [facility] [address] [place] [address] Dr. Leni HamlinCO2 [Moles/Vol]30.0 mmol/FZwobbw23.0-32.0The [facility] Comment on above:Performed By: #### BMP, BNP #### [facility] [address] [place] [address] Dr. Leni HamlinCreatinine [Mass/Vol]1.49 mg/dLCritically high0.70-1.30The [facility] RehabilitationComment on above:Performed By: #### BMP, BNP #### [facility] [address] [address] [address] Leni LesterGFR-AF KQBHPQKL55 mL/min/1.14s1Viemkcinog low>=60The [facility] For RehabilitationComment on above:Performed By: #### BMP, BNP #### [facility] [address] [address] [address] Leni LesterGFR-NON AF PXKWUCAN52 mL/min/1.93m3Ritbkhlkjv low>=60The [facility] RehabilitationComment on above:Performed By: #### BMP, BNP #### [facility] [address] [place] [address] Dr. Leni HamlinGlucose [Mass/Vol]158 mg/dLCritically fayc32-809Coi [facility] RehabilitationComment on above:Performed By: #### BMP, BNP #### [facility] [address] [place] [address] Dr. Leni HamlinPotassium [Moles/Vol]5.7 mmol/LCritically high3.5-5.1The [facility] For RehabilitationComment on above:Performed By: #### BMP, BNP #### [facility] [address] [place] [address] Dr. Leni HamlinSodium [Moles/Vol]136 mmol/YPdycdt737-327Tct [facility] Comment on above:Performed By: #### BMP, BNP #### [facility] [address] [place] [address] Dr. Leni HamlinUrea nitrogen [Mass/Vol]19.0 mg/dLCritically high7.0-18.0The [facility] RehabilitationComment on above:Performed By: #### BMP, BNP #### [facility] [address] [place] [address] Dr. Leni HamlinUrea nitrogen/Creatinine [Mass ratio]12.8 mg/mgNormalThe [facility] For RehabilitationComment on above:Performed By: #### BMP, BNP #### [facility] [address] [place] [address] Dr. Leni Horta [id number] peptide B (Bld) [Mass/Vol]405.0 pg/mL Normal<=900.0The [facility] For RehabilitationComment on above:Performed By: #### BMP, BNP #### [facility] [address] [place] [address] Dr. Leni Rush AUTO DIFFon [id number] #0.1 103/ulNormal0.0-0.1The [facility] For RehabilitationComment on above:Performed By: #### CBC #### [facility] [address] [place] [address] Dr. Leni HamlinBasophils/100 WBC (Bld)0.3 %Normal0.2-2.0[facility] Comment on above:Performed By: #### CBC #### [facility] [address] [place] [address] Dr. Leni Richards #0.0 103/ulNormal0.0-0.7The [facility] For RehabilitationComment on above: Performed By: #### CBC #### [facility] [address] [place] [address] Dr. Leni Lesterosinophils/100 WBC (Bld)0.1 %Critically low0.9-7.0The [facility] For RehabilitationComment on above:Performed By: #### CBC #### [facility] [address] [place] [address] Dr. Leni Lesterrythrocyte distribution width (RBC) [Ratio]13.3 %Guzfdf22.0-15.0 The [facility] For RehabilitationComment on above:Performed By: #### CBC #### [facility] [address] [place] [address] Dr. Leni HamlinHematocrit (Bld) [Volume fraction]52.2 %Riyayv05.0-54.0The [facility] For RehabilitationComment on above:Performed By: #### CBC #### [facility] [address] [place] [address] Dr. Yilan ChangHemoglobin (Bld) [Mass/Vol]16.5 g/uODhazvp94.0-18.0[facility] HospitalComment on above:Performed By: #### CBC #### [facility] [address] [place] [address] Dr. Leni Spencer #0.19 10e3/ulCritically high0.00-0.03[facility] Comment on above:Performed By: #### CBC #### [facility] [address] [place] [address] Dr. Leni Spencer %1.0 %Critically high0.0-0.5The [facility] For RehabilitationComment on above:Performed By: #### CBC #### [facility] [address] [place] [address] Dr. Leni Leija #0.8 103/ulCritically low1.2-3.8The [facility] Comment on above:Performed By: #### CBC #### [facility] [address] [place] [address] Dr. Leni Johnsonhocytes/100 WBC (Bld)3.8 %Critically low20.5-60.0The [facility] For RehabilitationComment on above:Performed By: #### CBC #### [facility] [address] [place] [address] Dr. Leni Rojas DIFF REQNONormalThe [facility] For RehabilitationComment on above: Performed By: #### CBC #### [facility] [address] [place] [address] Dr. Leni Upton (RBC) [Entitic mass]29.6 fkNsgwkf24.9-34.0The [facility] For RehabilitationComment on above:Performed By: #### CBC #### [facility] [address] [place] [address] Dr. Leni Upton (RBC) [Mass/Vol]31.6 g/fXDmwign43.9-35.2The [facility] For RehabilitationComment on above:Performed By: #### CBC #### [facility] [address] [place] [address] Dr. Leni Sandhu (RBC) [Entitic vol]93.7 wPHklvdd76.0-94.0The [facility] For RehabilitationComment on above:Performed By: #### CBC #### [facility] [address] [place] [address] Dr. Leni Mane #1.6 103/ulCritically high0.3-0.8The [facility] Comment on above:Performed By: #### CBC #### [facility] [address] [place] [address] Dr. Leni Sandovalocytes/100 WBC (Bld)8.3 %Normal1.7-12.0[facility] Comment on above:Performed By: #### CBC #### [facility] [address] [place] [address] Dr. Leni Mayen #17.0 103/ulCritically high1.4-6.5ThHolmes County Joel [facility] Comment on above:Performed By: #### CBC #### [facility] [address] [place] [address] Dr. Leni Coburnutrophils/100 WBC (Bld)86.5 %Critically high43.0-75.0The [facility] For RehabilitationComment on above:Performed By: #### CBC #### [facility] [address] [place] [address] Dr. Leni Wright mean volume (Bld) [Entitic vol]10.0 fLNormal9.5-13.5The [facility] RehabilitationComment on above:Performed By: #### CBC #### [facility] [address] [place] [address] Dr. Leni HamlinPLT194 103/ukNsyxoz797-813Dlj [facility] RehabilitationComment on above: Performed By: #### CBC #### [facility] [address] [place] [address] Dr. Leni HamlinRBC5.57 106/ulNormal4.70-6.10The [facility] RehabilitationComment on above:Performed By: #### CBC #### [facility] [address] [place] [address] Dr. Leni HamlinWBC19.7 103/ulCritically high4.0-11.0The [facility] RehabilitationComment on above:Performed By: #### CBC #### [facility] [address] [address] [address] Leni Roman CSPINE WO CONon [id number] [facility] [place] [facility] CONEXAMINATION: [facility] HISTORY: UNSPECIFIED INJURY OF HEAD, [...] Electronically authenticated by: CIERA HERNÁNDEZ Date: 2022-03-12 13:42[facility] HospitalCT HEAD WO CONon [id number] HEAD WO CONEXAMINATION: CT HEAD WO CON, 03/12/2022 12:31 PM [...] Electronically authenticated by: SUSAN KC Date: 2022-03-12 13:20[facility] HospitalCTA CHEST WO W CONon [id number] CHEST WO W CONEXAMINATION: CTA CHEST WO W CON HISTORY: SHORTNESS [...] Electronically authenticated by: CIERA HERNÁNDEZ Date: 2022-03-12 14:46[facility] HospitalCULTURE BLOODon [id number] examination of blood, cultureCulture Observations: NO GROWTH AT 5 DAYS.NormalThe [facility] RehabilitationComment on above:Performed By: #### CMP, CRP #### [facility] [address] [address] [address] Leni HamlinMicroscopic examination of blood, cultureCulture Observations: NO GROWTH AT 5 DAYS.NormalPaulding County HospitalComment on above:Performed By: #### CMP, CRP #### [facility] [address] [address] [address] Leni HamlinCovid-19 PCR ([facility])on [id number]-CoV-2 (COVID-19) RNA VENESSA+probe Ql (Unsp spec)Not detectedNormalNOT DETECTEDThe [facility] Comment on above:Result Comment: When diagnostic testing is negative, the possibility of a false negative should be considered in the context of a patient's recent exposures and the presence of clinical signs and symptoms consistent with SARS-CoV-2. This test is not yet approved or cleared by the [place] Food and Drug Administration (FDA). This test was developed by [employer], [place], [place]. The performance characteristics of this [...] for this test is supported by the [place] of Health and Human Service's declaration that circumstances exist to justify the emergency use of in vitro diagnostics for the detection and/or diagnosis of the virus that causes COVID-19. This EUA will remain in effect for the duration of the COVID-19 declaration justifying emergency of IVDs, unless it is terminated or revoked by the FDA (after which the test may no longer be used).Performed By: #### CRP #### [facility] [address] [place] [address] Dr. Leni Malloy-DIMERon 18-65-1723J-DIMER6.00 mg/L FEUCritically high0.19-0.50 The [facility] RehabilitationComment on above:Performed By: #### BMP, BNP #### [facility] [address] [place] [address] Dr. Leni MedinaDIMER COMMENTSSEE BELOWNormalThHolmes County Joel [facility]omerene Memorial HospitalComment on above:Result Comment: Increases in D-Dimer concentration observed with thromboembolic events [...] stress, and generalized hospitalization. Performed By: #### BMP, BNP #### [facility] [address] [place] [address] Dr. Leni Live URINE PROFILEon 95-17-9839Dlrapqfzf Ql (U)NegativeNormal NEGATIVEPaulding County HospitalComment on above:Performed By: #### CRP #### [facility] [address] [place] [address] Dr. Leni HamlinClarity (U)CLEARNormalCLEARPaulding County HospitalComment on above: Performed By: #### CRP #### [facility] [address] [place] [address] Dr. Leni HamlinColor (U)YELLOWNormalYELLOWPaulding County HospitalComment on above: Performed By: #### CRP #### [facility] [address] [place] [address] Dr. Leni Dior micrscopic examination will be performed if indicated. NormalPomerene Hospitalment on above:Performed By: #### CRP #### [facility] [address] [place] [address] Dr. Leni HamlinGlucose Ql (U)NegativeNormalNEGATIVEPaulding County HospitalComment on above:Performed By: #### CRP #### [facility] [address] [place] [address] Dr. Leni HamlinHemoglobin Ql (U)SMALLAbnormalNEGATIVENewark Hospital on above:Performed By: #### CRP #### [facility] [address] [place] [address] Dr. Leni HamlinKetones Ql (U)NegativeNormalNEGATIVEPomerene Hospitalment on above:Performed By: #### CRP #### [facility] [address] [place] [address] Dr. Leni HamlinLEUKOCYTESNegativeNormalNEGATIVEThe [facility] RehabilitationComment on above:Performed By: #### CRP #### [facility] [address] [address] [address] Leni Carrtrshameka Ql (U)NegativeNormalNEGATIVEThe [facility] RehabilitationComment on above:Performed By: #### CRP #### [facility] [address] [address] [address] Leni HamlinpH (U)5.5 [pH]Normal5-9The [facility] RehabilitationComment on above: Performed By: #### CRP #### [facility] [address] [address] [address] Leni HamlinSPEC GRAVITY<=1.523Uuqrnjik3.005-<=1.025The [facility] on above:Performed By: #### CRP #### [facility] [address] [place] [address] Dr. Leni Barahona PROTEIN>300AbnormalNEGATIVE/ TRACEThe [facility] RehabilitationComment on above:Performed By: #### CRP #### [facility] [address] [address] [address] Leni Jiang MICRO INDINDICATEDNormalThe [facility] RehabilitationComment on above: Performed By: #### CRP #### [facility] [address] [place] [address] Dr. Leni Ramosbilinogen Qn (U)0.2 {Stacy'U}/dLNormal0.2 - 1.0The [facility] RehabilitationComment on above:Performed By: #### CRP #### [facility] [address] [place] [address] Dr. Leni HamlinLACTATE/LACTIC ACIDon 57-66-9777Gdopoiu [Moles/Vol]0.5 mmol/L Normal0.4-2.0The [facility] RehabilitationComment on above:Performed By: #### BMP, BNP #### [facility] [address] [place] [address] Dr. Lnei HamlinLactate [Moles/Vol]1.6 mmol/LNormal0.4-2.0The [facility] Comment on above:Performed By: #### LACT #### [facility] [address] [address] [address] Leni Cm 14(COMP METB)on 13-57-3749Qmabkgo [Mass/Vol]3.1 g/dL Critically low3.4-5.0The [facility] RehabilitationComment on above:Performed By: #### BMP, BNP #### [facility] [address] [address] [address] Leni HamlinAlbumin/Globulin [Mass ratio]0.8 {ratio}NormalThe [facility] RehabilitationComment on above:Performed By: #### BMP, BNP #### [facility] [address] [place] [address] Dr. Leni Pérez [Catalytic activity/Vol]52 U/DHxijes71-904Fum [facility] RehabilitationComment on above:Performed By: #### BMP, BNP #### [facility] [address] [place] [address] Dr. Leni Archer [Catalytic activity/Vol]27 U/ZHzgvml00-44Cla [facility] RehabilitationComment on above:Performed By: #### BMP, BNP #### [facility] [address] [place] [address] Dr. Leni Henderson gap [Moles/Vol]12.9 mmol/LNormalThe [facility] Comment on above:Performed By: #### BMP, BNP #### [facility] [address] [place] [address] Dr. Leni HamlinAST [Catalytic activity/Vol]14 U/LCritically wiu83-43Muz [facility] RehabilitationComment on above:Performed By: #### BMP, BNP #### [facility] [address] [place] [address] Dr. Leni HamlinBilirubin [Mass/Vol]1.2 mg/dLCritically high0.2-1.0The [facility] RehabilitationComment on above:Performed By: #### BMP, BNP #### [facility] [address] [place] [address] Dr. Leni HamlinCalcium [Mass/Vol]8.2 mg/dLCritically low8.5-10.1The [facility] RehabilitationComment on above:Performed By: #### BMP, BNP #### [facility] [address] [place] [address] Dr. Leni HamlinChloride [Moles/Vol]99 mmol/APvedby95-341Isr [facility] Comment on above:Performed By: #### BMP, BNP #### [facility] [address] [place] [address] Dr. Leni HamlinCO2 [Moles/Vol]28.4 mmol/WYtblwj46.0-32.0The [facility] Comment on above:Performed By: #### BMP, BNP #### [facility] [address] [place] [address] Dr. Leni HamlinCreatinine [Mass/Vol]1.44 mg/dLCritically high0.70-1.30The [facility] RehabilitationComment on above:Performed By: #### BMP, BNP #### [facility] [address] [place] [address] Dr. Leni LesterGFR-AF PPNCLCBH48 mL/min/1.33w7Rhkznkinzs low>=60The [facility] RehabilitationComment on above:Performed By: #### BMP, BNP #### [facility] [address] [place] [address] Dr. Leni LesterGFR-NON AF NDJGURBS92 mL/min/1.51q0Nfxkpuypjz low>=60The [facility] RehabilitationComment on above:Performed By: #### BMP, BNP #### [facility] [address] [place] [address] Dr. Leni HamlinGlobulin (S) [Mass/Vol]3.8 g/dLNormalThe [facility] RehabilitationComment on above:Performed By: #### BMP, BNP #### [facility] [address] [place] [address] Dr. Leni HamlinGlucose [Mass/Vol]137 mg/dLCritically vgwz86-411Atc [facility] RehabilitationComment on above:Performed By: #### BMP, BNP #### [facility] [address] [place] [address] Dr. Leni HamlinPotassium [Moles/Vol]4.3 mmol/LNormal3.5-5.1The [facility] Comment on above:Performed By: #### BMP, BNP #### [facility] [address] [place] [address] Dr. Leni HamlinProtein [Mass/Vol]6.9 g/dLNormal6.1-8.2The [facility] Comment on above:Performed By: #### BMP, BNP #### [facility] [address] [place] [address] Dr. Leni HamlinSodium [Moles/Vol]136 mmol/QUrczhx739-341Usq [facility] Comment on above:Performed By: #### BMP, BNP #### [facility] [address] [place] [address] Dr. Leni HamlinUrea nitrogen [Mass/Vol]15.0 mg/dLNormal7.0-18.0The [facility] RehabilitationComment on above:Performed By: #### BMP, BNP #### [facility] [address] [place] [address] Dr. Leni Beatty nitrogen/Creatinine [Mass ratio]10.4 mg/mgNoMarymount HospitalComment on above:Performed By: #### BMP, BNP #### [facility] [address] [place] [address] Dr. Leni Nguyễn [id number] Coag (PPP) [Relative time]1.07 {INR} NormalPaulding County HospitalComment on above:Performed By: #### BMP, BNP #### [facility] [address] [place] [address] Dr. Leni Gregory GUIDELINESSEE BELOWPomerene HospitalComment on above:Result Comment: DESIRED INR: 2.0 - 3.0 CONDITIONS NOT LISTED BELOW 2.5 - 3.5 FOR PROSTHETIC HEART VALVE REPLACEMENT 2.5 - 3.5 RECURRENT THROMBOSIS Performed By: #### BMP, BNP #### [facility] [address] [place] [address] Dr. Leni Devine Coag (PPP) [Time]11.5 sNormal9.0-11.6[facility] Comment on above:Performed By: #### BMP, BNP #### [facility] [address] [place] [address] Dr. Leni Lockhart, HIGH SENSITIVITYon 64-94-7643LSILLV41.8 pg/mLNormal 4.0-76.1[facility] RehabilitationComment on above:Result Comment: CUT-OFF POINTS HAVE BEEN ESTABLISHED BASED ON THE FOURTH UNIVERSAL DEFINITIONS OF MYOCARDIAL INFARCTION. THE UPPER REFERENCE LIMIT (URL) OF TROPONIN, DEFINED THE 99TH PERCENTILE OF cTnI DISTRIBUTION IN A REFERENCE POPULATION, HAS BEEN CONFIRMED THE DECISION THRESHOLD FOR [place] DIAGNOSIS.Performed By: #### BMP, BNP #### [facility] [address] [place] [address] Dr. Leni Ortega MICROSCOPIC ONLYon 63-29-1212JDCABPOAOPNO SEENNormalNONE SEENPaulding County HospitalComment on above:Performed By: #### CRP #### [facility] [address] [place] [address] Dr. Leni Gee identified Cx Nom (U)NOT INDICATEDNoMarymount HospitalComment on above:Performed By: #### CRP #### [facility] [address] [place] [address] Dr. Leni Houston SEENNormalNONE SEENPaulding County HospitalComment on above:Performed By: #### CRP #### [facility] [address] [place] [address] Dr. Leni Brantley LM Nom (Urine sed)NONE SEENNormalNONE SEENPaulding County HospitalComment on above:Performed By: #### CRP #### [facility] [address] [place] [address] Dr. Leni Gamezthelial cells LM Ql (Urine sed)NONE SEENNormalNONE SEEN /RARE [facility] RehabilitationComment on above:Performed By: #### CRP #### [facility] [address] [place] [address] Dr. Yilan ChangMUCOUSMODERATEAbnormalNONE SEENPaulding County HospitalComment on above:Performed By: #### CRP #### [facility] [address] [address] [address] Leni HamlinSfcdmRPR0-0Kgoegpwu6-5Kti [facility] RehabilitationComment on above:Performed By: #### CRP #### [facility] [address] [address] [address] Leni HamlinWBCNONE SEENNormalNONE SEENUniversity [facility] on above: Performed By: #### CRP #### [facility] [address] [address] [address] Leni HamlinXR RIBS RT PA Tod 25-85-1372OF RIBS RT PA CHEXAMINATION: XR RIBS RT PA CH HISTORY: Pain [...] Electronically authenticated by: CIERA HERNÁNDEZ Date: 2022-03-12 13:35NoMarymount HospitalCovid-19 PCR (CVDTBH)on 78-99-8173AKST-CoV-2 (COVID-19) RNA VENESSA+probe Ql (Unsp spec)Not detectedNormalNOT DETECTEDPaulding County Hospital Comment on above:Result Comment: This test is not yet approved or cleared by the [place] FDA. When there are no FDA-approved or cleared tests available, and other criteria are met, FDA can make tests available under an emergency access mechanism called an Emergency Use Authorization (EUA). The EUA for this test is supported by the Commercial Administrator of Health and Human Service's (HHS's) declaration that circumstances exist to justify the emergency use of in vitro diagnostics for the detection and/or diagnosis of the virus that causes COVID- 19. This EUA will remain in effect (meaning [...] of clinical signs and symptoms consistent with SARS-CoV-2.Performed By: #### CRP #### [facility] [address] [place] [address] Dr. Leni Lee AND B AGon 01-06-5159YSDUVPRMARNSBWooster Community Hospital on above:Result Comment: Negative for Flu A protein angiten. Infection due to Flu A cannot be ruled out. FluA angiten in the sample may be below the detection limit of the test.Performed By: #### CRP #### [address] [address] [address] Leni WhiteUBNEGOSEAS [facility] on above: Result Comment: Negative for Flu B protein antigen. Infection due to Flu B cannot be ruled out. FluB antigen in the sample may be below the detection limit of the test.Performed By: #### CRP #### [facility] [address] [place] [address] Dr. Leni Lee AGNegativeNormalNEGATIVE SEE COMMENTThe [facility] on above:Performed By: #### CRP #### [facility] [address] [place] [address] Dr. Leni Mayers AGNegativeNormalNEGATIVE SEE COMMENTThe [facility] on above:Performed By: #### CRP #### [facility] [address] [place] [address] Dr. Leni HamlinINTERNAL CONTROLSWithin Normal LimitsNormalWithin Normal Limits [facility] on above:Performed By: #### CRP #### [facility] [address] [place] [address] Dr. Leni Bhandari-19 Antigenon 13-81-4168BYAOV-19 AntigenHealthcare Worker?: N Cindy Reference Cindy Reference Negative [...] Cindy SARS Antigen JENNIFER does not differentiate Cinyd Disclaimer between SARS-CoV and SARS-CoV-2. COVID19 Blank Space Cindy Disclaimer This test was developed and its performance Cindy Disclaimer characteristic determined by [employer] and Cindy Disclaimer validated at [facility]. This Cindy Disclaimer test has [...] is terminated or revoked sooner. PERFORMED BY: [place] [address] PATHOLOGIST TECHNICAL SALES MANAGER ZOHAIB JEWELL M.D.NormalGuernsey Memorial HospitalComment on above: Performed By: #### COVID-19 CINDY, SOFIANEG #### [facility] [address] [place] [address] USASofia Ag Negativeon 85-41-7169Abxsr Ag NegativeNegative NormalNegativeGuernsey Memorial HospitalComment on above:Result Comment: This is a duplicate Cindy SARS Antigen (JENNIFER) result to be used for statistical tracking purpose only. PERFORMED BY: [place] [address] PATHOLOGIST TECHNICAL SALES MANAGER ZOHAIB JEWELL M.D.Performed By: #### COVID-19 CINDY, SOFIANEG #### [facility] [address] [place], [place] [address] [facility] Vital Signs Date TimeVital SignValuePerforming PhzbeuzzsOvsnrspr98-48-1066 14:22-0500Body mass index (BMI) [Ratio]35 kg/s1Upxvjhemerson Gonzalez MD Work Phone: [place] Dfmhln32-52-9202 14:22-0500Body temperature 97.81 [degF]Fred Gonzalez MD Work Phone: 1(600)[address] [place], [place] 6773911-11-2024 14:22-0500Body pqgueb88.3 kgAdaemerson Gonzalez MD Work Phone: 1(152)[address] [place], [place] 6773911-11-2024 14:22-0500Diastolic blood mm[Hg]Fred Gonzalez MD Work Phone: 1(472)[address] [place], [place] 6773911-11-2024 14:22-0500Heart rate88 /min Fred Gonzalez MD Work Phone: 1(112)[address] [place], [place] 6773911-11-2024 14:22-0500Respiratory rate 18 /minFred Gonzalez MD Work Phone: 1(520)[address] [place], [place] 6773911-11-2024 14:22-1929AtB6% (BldA) [Mass fraction]94 %Fred Gonzalez MD Work Phone: 1(784)[address] [place], [place] 6773911-11-2024 14:22-0500Systolic blood bzreuink783 mm[Hg]Fred Gonzalez MD Work Phone: 1(183)[facility] [place], [place] 7184710-28-2024 13:45-0400Body pyrwdb881.6 cmAdaemerson Gonzalez MD Work Phone: 1(493)[address] [place], [place] 6[address]10-28-2024 13:45-0400Body mass index (BMI) [Ratio]35.21 kg/w5MjxdnqFred Gonzalez MD Work Phone: 1(172)[facility] [place], [place] 7184710-28-2024 13:45-0400Body temperature 97.2 [degF]Fred Gonzalez MD Work Phone: 1(922)1-[address] [place], [place] 7184710-28-2024 13:45-0400Body pgiwjq92.9 kgFred Gonzalez MD Work Phone: 1(255)[facility] [place], [place] [address]10-28-2024 13:45-0400Diastolic blood mm[Hg]Fred Gonzalez MD Work Phone: 1(021)519-[address] [place] [address]-28-2024 13:45-0400Heart rate78 /min Fred Gonzalez MD Work Phone: 1(440)[address] [place], [place] 6[address]10-28-2024 13:45-0400Respiratory rate 16 /minFred Gonzalez MD Work Phone: 1(921)[address] [place], [place] 677[address]10-28-2024 13:45-2942GhB5% (BldA) [Mass fraction]94 %Fred Gonzalez MD Work Phone: 1(336)[address] [place], [place] 6[address]10-28-2024 13:45-0400Systolic blood uulmqmqm728 mm[Hg]Fred Gonzalez MD Work Phone: 1(432)[address] [place], [place] 677[address]10-17-2024 13:09-0400Body mass index (BMI) [Ratio]34.94 kg/i7VvvqqiFred Gonzalez MD Work Phone: 1(140)[address] [place], [place] 677[address]10-17-2024 13:09-0400Body temperature 97.3 [degF]Fred Gonzalez MD Work Phone: 1(180)[address] [place], [place] 677[address]10-17-2024 13:09-0400Body wauwbv80.2 kgFred Gonzalez MD Work Phone: 1(592)[address] [place], [place] 677[address]10-17-2024 13:09-0400Diastolic blood besxfdfp48 mm[Hg]Fred Gonzalez MD Work Phone: 1(358)[address] [place], [place] 677[address]10-17-2024 13:09-0400Heart rate91 /min Fred Gonzalez MD Work Phone: 1(320)[address] [place], [place] 677[address]10-17-2024 13:09-0400Respiratory rate 18 /minFred Gonzalez MD Work Phone: 1(789)[address] [place], [place] 677[address]10-17-2024 13:09-7937IpX7% (BldA) [Mass fraction]95 %Fred Gonzalez MD Work Phone: 1(217)[address] [place] [address]-17-2024 13:09-0400Systolic blood mm[Hg]Fred Gonzalez MD Work Phone: 1(597)203-[address] [place], [place] 2122210-07-2024 12:31-0400Body viwcyw912.6 cmPacc 1 Other Phone: [facility]10-07-2024 12:31-0400Body mass index (BMI) [Ratio]34.3 kg/m2Pacc 1 Other Phone: [phone] [address]-07-2024 12:31-0400Body temperature 96.69 [degF]Pacc 1 Other Phone: [phone] [place] [address]-07-2024 12:31-0400Body vywkld61.4 kgPacc 1 Other Phone: [phone]10-07-2024 12:31-0400Diastolic blood lrykbavv72 mm[Hg]Pacc 1 Other Phone: [phone]10-07-2024 12:31-0400Heart rate69 /minPacc 1 Other Phone: [phone] [place], [place] 483[address]10-07-2024 12:31-0400Respiratory rate 18 /minPacc 1 Other Phone: [phone]10-07-2024 12:31-0599LqX9% (BldA) [Mass fraction]96 %Pacc 1 Other Phone: [phone]10-07-2024 12:31-0400Systolic blood xxdidtph832 mm[Hg]Pacc 1 Other Phone: [phone]09-19-2024 14:21-0400Body srnaxl027.9 cmAdaemerson Gonzalez MD Work Phone: [facility] HospitalHknqwk77-06-2755 14:21-0400Body mass index (BMI) [Ratio]35.29 kg/u1YtdihcFred Gonzalez MD Work Phone: [facility] HospitalFfcsfd03-25-3988 14:21-0400Body ygjtnb96.3 kgAdaemerson Gonzalez MD Work Phone: [address] [address]-19-2024 14:21-0400Diastolic blood felbrhca35 mm[Hg]Fred Gonzalez MD Work Phone: c[facility]and Ixiorq00-84-3739 14:21-0400Heart rate68 /min Ferd Gonzalez MD Work Phone: [facility]and Anagqy28-19-5668 14:21-0400Respiratory rate 16 /minAdaemerson Gonzalez MD Work Phone: [facility]and Smjjeh47-92-5329 14:21-8774HyS3% (BldA) [Mass fraction]95 %Fred Gonzalez MD Work Phone: [facility] rehabilitationand Nlcazd89-02-4729 14:21-0400Systolic blood undkzayi807 mm[Hg]Fred Gonzalez MD Work Phone: [address] [address]-19-2024 13:05-0400Body mass index (BMI) [Ratio]35.22 kg/m2Noah Harrison MD Work Phone: [address] [place] [address]-19-2024 13:05-0400Body temperature 97.5 [degF]Noah Harrison MD Work Phone: [address] [place] [address]-19-2024 13:05-0400Body .1 kgNoah Harrison MD Work Phone: [address] [place] [address]-19-2024 13:05-0400Diastolic blood wazvqdra97 mm[Hg]Noah Harrison MD Work Phone: [address] [address]-19-2024 13:05-0400Heart rate68 /min Noah Harrison MD Work Phone: [address] [address]-19-2024 13:05-0400Respiratory rate 16 /minScheng Harrison MD Work Phone: [address] [place] [address]-19-2024 13:05-1310ZeN4% (BldA) [Mass fraction]95 %Noah Harrison MD Work Phone: [facility]09-19-2024 13:05-0400Systolic blood lhijwidk031 mm[Hg]Noah Harrison MD Work Phone: [facility]09-11-2024 13:30-0400Body .9 cmMicha Avina MD Work Phone: [facility]09-11-2024 13:30-0400Body mass index (BMI) [Ratio]34.03 kg/i1XrnombojMicha Avina MD Work Phone: [phone]()[phone]09-11-2024 13:30-0400Body temperature 97.3 [degF]Micha Avina MD Work Phone: [phone]()[phone]09-11-2024 13:30-0400Body lbojpb41.8 kgMicha Avina MD Work Phone: [facility]09-11-2024 13:30-0400Diastolic blood rlapvcut76 mm[Hg]Micha Avina MD Work Phone: 1()[phone]09-11-2024 13:30-0400Heart rate67 /min Micha Avina MD Work Phone: [phone]()[phone]09-11-2024 13:30-3880DmF1% (BldA) [Mass fraction]98 %Micha Avina MD Work Phone: [place] [address]-11-2024 13:30-0400Systolic blood kjurprmb019 mm[Hg]Micha Avina MD Work Phone: [address] [address]-11-2024 11:16-0400Body jryhdg958.9 Austin Earl MD Work Phone: [facility]09-11-2024 11:16-0400Body mass index (BMI) [Ratio]34.18 kg/y8HmbabSangeetha Earl MD Work Phone: [address] [address]-11-2024 11:16-0400Body temperature 97.3 [degF]aSngeetha Earl MD Work Phone: [phone]09-11-2024 11:16-0400Body qhyucr56.2 kgSangeetha Earl MD Work Phone: [phone]09-11-2024 11:16-0400Diastolic blood pxqpgtwo51 mm[Hg]Sangeetha Earl MD Work Phone: [phone]09-11-2024 11:16-0400Heart rate67 /min Sangeetha Earl MD Work Phone: [phone]09-11-2024 11:16-0400Respiratory rate 18 /minSpriscila Earl MD Work Phone: [phone]09-11-2024 11:16-0754QdT2% (BldA) [Mass fraction]98 %Sangeetha Earl MD Work Phone: [phone]09-11-2024 11:16-0400Systolic blood ogkwhksm480 mm[Hg]Sangeetha Earl MD Work Phone: [phone]08-23-2024 14:45-0400Body vfdqoe203.1 cmKathleen Laffey NURSE REVIEWER.DIRECTOR OF PHYSICAL EDUCATION Work Phone: [phone]08-23-2024 14:45-0400Body mass index (BMI) [Ratio]36.59 kg/y2Btyufmri Laffey NURSE REVIEWER.DIRECTOR OF PHYSICAL EDUCATION Work Phone: [phone]08-23-2024 14:45-0400Body temperature 98.01 [degF]Tamiko Laffey NURSE REVIEWER.DIRECTOR OF PHYSICAL EDUCATION Work Phone: [phone]08-23-2024 14:45-0400Body ardxlb63.75 kgKathleen Laffey NURSE REVIEWER.DIRECTOR OF PHYSICAL EDUCATION Work Phone: [phone]08-23-2024 14:45-0400Diastolic blood yrtervdw94 mm[Hg]Tamiko Laffey NURSE REVIEWER.DIRECTOR OF PHYSICAL EDUCATION Work Phone: [facility]08-23-2024 14:45-0400Heart rate75 /min Tamiko Hernadeznestor NURSE REVIEWER.DIRECTOR OF PHYSICAL EDUCATION Work Phone: [facility]08-23-2024 14:45-3054BsU4% (BldA) [Mass fraction]96 %Tamiko Mcduffie NURSE REVIEWER.DIRECTOR OF PHYSICAL EDUCATION Work Phone: [facility]08-23-2024 14:45-0400Systolic blood viixpmgw647 mm[Hg]Tamiko Mcduffie NURSE REVIEWER.DIRECTOR OF PHYSICAL EDUCATION Work Phone: [facility]08-09-2024 15:29-0205XkT1% (BldA) [Mass fraction]99 %[facility] on above:Order Comment: Specimen Type: ARTERIAL BLOOD SPECIMENOrdering Facility: [facility]Address: [address] [place], [place] [address]Performed By: #### ALLBG ####[facility] LABCLIA [id number] [address]08-09-2024 13:33-8489UjT9% (BldA) [Mass fraction]100 %[facility] on above:Order Comment: Specimen Type: ARTERIAL BLOOD SPECIMENOrdering Facility: [facility]Address: [address] [id number] By: #### ALLBG ####[facility] LABCLIA [id number] [address]08-09-2024 11:34-1324ZyF9% (BldA) [Mass fraction]100 %[facility] on above:Order Comment: Specimen Type: ARTERIAL BLOOD SPECIMENOrdering Facility: [facility]Address: [address] [place] [id number] By: #### ALLBG ####[facility] LABCLIA [id number] [place] [id number] [facility]08-09-2024 09:33-8930ByL3% (BldA) [Mass fraction]99 %[facility] on above:Order Comment: Specimen Type: ARTERIAL BLOOD SPECIMENOrdering Facility: [facility]Address: [address] [place], [place] [address]Flhwndzjt By: #### ALLBG ####[facility] LABCLIA [id number] [place] [id number] [facility]08-09-2024 08:04-8207WmA9% (BldA) [Mass fraction]99 %[facility] on above:Order Comment: Specimen Type: ARTERIAL BLOOD SPECIMENOrdering Facility: [facility]Address: [address] [place], [place] [address]Umteohwha By: #### ALLBG ####[facility] LABCLIA [id number] [place] [id number] [facility]08-09-2024 06:15-7777AfT3% (BldA) [Mass fraction]100 %[facility] on above:Order Comment: Specimen Type: ARTERIAL BLOOD SPECIMENOrdering Facility: [facility]Address: [address] [place], [place] [address]Qzsbrutdr By: #### ALLBG ####[facility] LABCLIA [id number] [place] [id number] [facility]08-09-2024 04:54-4788SqW7% (BldA) [Mass fraction]100 %[facility] on above:Order Comment: Specimen Type: ARTERIAL BLOOD SPECIMENOrdering Facility: [facility]Address: [address] [place], [place] [address]Sljdnhfwo By: #### ALLBG ####[facility] LABCLIA [id number] [address] [address] [facility]08-09-2024 03:47-4124NtH6% (BldA) [Mass fraction]99 %[facility] on above:Order Comment: Specimen Type: ARTERIAL BLOOD SPECIMENOrdering Facility: [facility]Address: [address] [place], [place] [address]Egsvotqkq By: #### ALLBG ####[facility] LABCLIA [id number] [place] [id number] [facility]08-09-2024 01:36-1118AaP4% (BldA) [Mass fraction]99 %[facility] on above:Order Comment: Specimen Type: ARTERIAL BLOOD SPECIMENOrdering Facility: [facility]Address: [address] [place], [place] [address]Brchdztba By: #### ALLBG ####[facility] LABCLIA [id number] [place] [id number] [facility]08-09-2024 00:21-4822StI7% (BldA) [Mass fraction]99 %[facility] on above:Order Comment: Specimen Type: ARTERIAL BLOOD SPECIMENOrdering Facility: [facility]Address: [address] [place], [place] [address]Bdkofnpcr By: #### ALLBG ####[facility] LABCLIA [id number] [place] [id number] [facility]08-08-2024 21:39-5974ZnT1% (BldA) [Mass fraction]100 %[facility] on above:Order Comment: Specimen Type: ARTERIAL BLOOD SPECIMENOrdering Facility: [facility]Address: [address] [place], [place] [address]Bowqkeien By: #### ALLBG ####[facility] LABCLIA [id number] [address] [address] [facility] TBEBXXS09-15-0913 19:54-0117BfF9% (BldA) [Mass fraction]99 %[facility] on above:Order Comment: Specimen Type: ARTERIAL BLOOD SPECIMENOrdering Facility: [facility]Address: [address] [place], [place] [address]Zgikoowlc By: #### ALLBG ####[facility] LABCLIA [id number] [address] [address] [facility]08-08-2024 18:48-8401LdQ8% (BldA) [Mass fraction]100 %[facility] on above:Order Comment: Specimen Type: ARTERIAL BLOOD SPECIMENOrdering Facility: [facility]Address: [address] [place], [place] [address]Djupcyceo By: #### ALLBG ####[facility] LABCLIA [id number] [place] [id number] [facility]08-08-2024 18:20-5164IpR9% (BldA) [Mass fraction]100 %[facility] on above:Order Comment: Specimen Type: ARTERIAL BLOOD SPECIMENOrdering Facility: [facility]Address: [address] [place], [place] [address]Dxfdwaqms By: #### ALLBG ####[facility] LABCLIA [id number] [place] [id number] [facility] [id number] 17:43-1593YxF4% (BldA) [Mass fraction]100 %[facility] on above:Order Comment: Specimen Type: ARTERIAL BLOOD SPECIMENOrdering Facility: [facility]Address: [address] [place], [place] [address]Hklcvqvjd By: #### ALLBG ####[facility] LABCLIA [id number] [place] [id number] [place] PDYGJIO26-35-6778 17:23-9249XlE1% (BldA) [Mass fraction]99 %[facility] on above:Order Comment: Specimen Type: ARTERIAL BLOOD SPECIMENOrdering Facility: [facility]Address: [address] [place], [place] [address]Zpfxaeagp By: #### ALLBG ####[facility] LABCLIA [id number] [place] [id number] [facility]08-08-2024 15:36-6536RtG6% (BldA) [Mass fraction]100 %[facility] on above:Order Comment: Specimen Type: ARTERIAL BLOOD SPECIMENOrdering Facility: [facility]Address: [address] [place], [place] [address]Imcvwmjgd By: #### ALLBG ####[facility] LABCLIA [id number] [place] [id number] [facility]08-08-2024 15:11-9001BuK9% (BldA) [Mass fraction]100 %[facility]Com[facility] on above:Order Comment: Specimen Type: ARTERIAL BLOOD SPECIMENOrdering Facility: [facility]Address: [address] [place], [place] [address]Qihjhcslf By: #### ALLBG ####[facility] LABCLIA [id number] [place] [id number] [facility] [id number] 14:30-6060XqS8% (BldA) [Mass fraction]100 %[facility] on above:Order Comment: Specimen Type: ARTERIAL BLOOD SPECIMENOrdering Facility: [facility]Address: [address] [place], [place] [address]Ifbwawaqf By: #### ALLBG ####[facility] LABCLIA [id number] [place] [id number] [place] MBCNVON03-17-4535 11:15-2592NxY9% (BldA) [Mass fraction]97 %[facility] on above:Order Comment: Specimen Type: ARTERIAL BLOOD SPECIMENOrdering Facility: [facility]Address: [address] [place], [place] [address]Iihdgxnpn By: #### ALLBG ####[facility] LABALEJO [id number] [place] [id number] [place] Encounters Encounter DateEncounter TypeCare ProviderFacilityStart: 35-47-9330bjvcwhuruxCSSIFirelands Regional Medical Centertart: 08-17-2025 End: 87-69-7475ovkowkvycpMZNXSelect Medical [facility] - Dublintart: 98-55-7215jbwuqpsjxdSBWYSelect Medical [facility] - Dublintart: 01-63-1316ppfxkczkkyBWDMZTrumbull Memorial Hospitaltart: 09-03-5728jjfcvyrszdJKLESelect Medical [facility] Hospital - Dublintart: 37-37-4987okdjxdskjfZCRNSelect Medical [facility] - Dublintart: 80-34-8236igoquznbplMBTGDTrumbull Memorial Hospitaltart: 08-97-9487erbxmxeijqIBWASelect Medical [facility] Hospital - Dublintart: 03-40-3566qnsyinmetjTVFXSelect Medical [facility] - Dublintart: 18-23-1061osbyggrqrrSTWLSelect Medical [facility] Hospital - Dublintart: 03-11-2025 End: 81-52-2158znrbufjikaMFLGYXC [facility] Centertart: 71-40-1495gitcfsmukeMGSCFirelands Regional Medical Centertart: 03-02-2025 End: 66-26-9591wwewebkacrDSNZSelect Medical [facility] Hospital - Dublintart: 12-29-2024 End: 73-82-7546Ozfxvhqmv encounterElliott Sanchez MD Work Phone: UrologyComment on above:Physician Non Invasive Cardiologist - OtherStart: 11-25-2024 End: 97-97-8671jncprmsgcaXdxj Almassi MD Work Phone: UrologyComment on above:NO SHOW (Primary Dx)Start: 11-25-2024 End: 88-03-6108Jbrnewhymipl consultation with Boyd Sanchez MD Work Phone: UrologyStart: 11-20-2024 End: 10-52-6588btctlcegmnWPPEFADHenry County Hospital Start: 10-01-2024 End: 72-43-6390Mzifeuuen encounterFred Gonzalez MD Work Phone: cancer Appts MCStart: 09-22-2024 End: 68-23-7674Dciefnpyf encounterScheng Harrison MD Work Phone: Radiation OncologyComment on above:Appointment; Patient UpdateStart: 09-21-2024 End: 44-21-4512Kvjcqu outpatient visit 15 minutesAdaemerson Gonzalez MD Work Phone: Hematology/OncologyComment on above:Rectal cancer (HCC) (Primary Dx)Start: 09-21-2024 End: 11-26-4224vrovlnftwqDUXFUI VENNEPUREDDYFacility:[facility] Start: 09-18-2024 End: 65-16-4776Zxbcbrilm encounterScheng Harrison MD Work Phone: Radiation OncologyComment on above:AppointmentStart: 09-08-2024 End: 60-47-4649ezqoofhjkmRUVV RAJANFacility:[facility]tart: 09-08-2024 End: 60-48-8552Gylwcjvjna hospital visit by physicianArrival Time Radiology Work Phone: Radiology Pet CTComment on above:Rectal cancer (HCC) [C20]Start: 09-07-2024 End: 15-41-2127Yxxcugm evaluation of patient and reportAbril Gardner RN Work Phone: Hematology/OncologyComment on above:Rectal cancer (HCC) (Primary Dx)Start: 09-07-2024 End: 94-48-4984Cpmhhw outpatient visit 15 minutesAdaemerson Gonzalez MD Work Phone: Hematology/OncologyComment on above:Rectal cancer (HCC) (Primary Dx)Start: 09-07-2024 End: 84-24-2094Lmvauyq encounter procedureCcf ProviderRegency Hospital [facility] DepartmentStart: 09-07-2024 End: 95-89-3229Etaijqyym encounterAbril Gardner RN Work Phone: Hematology/OncologyComment on above:Care Coordination (BCG treatments)Start: 09-07-2024 End: 26-12-3084zdfftcxhtjKACFKV VENNEPUREDDYFacility:[facility] Start: 09-04-2024 End: 77-83-4216wgbodwhdbwWDUPHFH M HOYFacility:[facility]tart: 09-04-2024 End: 44-17-4155Hxbotvi encounter procedureScheng Harrison MD Work Phone: Radiation OncologyComment on above:Rectal cancer (HCC) (Primary Dx)Start: 09-04-2024 End: 61-40-1304Rblzmprnb Oncology NoteScheng Harrison MD Work Phone: Radiation OncologyComment on above:Simulation Note Start: 09-04-2024 End: 25-32-2177Skpfawlvz encounterScheng Harrison MD Work Phone: Radiation OncologyComment on above:Patient Update Start: 09-04-2024 End: 29-54-8642Ougurczhaj hospital visit by physicianScheng Harrison MD Work Phone: Radiology Pet CTComment on above:ArrivedStart: 09-03-2024 End: 55-18-8502qguuuhvwekQekzogwudo Siri RD Work Phone: Nutrition TherapyStart: 09-03-2024 End: 04-61-2904Tcscnnbdv therapyJacquelizy Heredia RD Work Phone: Nutrition TherapyComment on above:Nutrition Telephone Start: 08-31-2024 End: 38-84-6357Lhgwgxxpv encounterElliott Sanchez MD Work Phone: UrologyComment on above:ResultsMalignant neoplasm of overlapping sites of bladder (HCC) (Primary Dx)Start: 08-28-2024 End: 74-02-3143Sjosotbgt encounterAbril Gardner RN Work Phone: Hematology/OncologyComment on above:Care Coordination (Antiemetics for treatment)Start: 08-27-2024 End: 35-51-5257Uuzjztdqv encounterAdaemerson Gonzalez MD Work Phone: Hematology/OncologyComment on above:Care Coordination (Chemo ed)Medication Update (capecitabine)Start: 08-27-2024 End: 97-67-1618lbnwosdoprRPMYCKU M HOYFacility:[facility]tart: 08-27-2024 End: 79-00-2313Otcqlv outpatient visit 25 minutesAdarseduardo Gonzalez MD Work Phone: Hematology/OncologyComment on above:Rectal cancer (HCC) (Primary Dx)Start: 08-26-2024 End: 88-87-3182Paxehwhvu encounterScheng Harrison MD Work Phone: Radiation OncologyComment on above:Future Appointment Start: 08-25-2024 End: 27-65-2709Iymfvnuox encounterElliott Sanchez MD Work Phone: UrologyComment on above:ResultsStart: 08-20-2024 End: 44-79-6801rhdaymxuheAYGZCEL M HOYFacility:[facility]tart: 08-18-2024 End: 18-14-6055qxunsygelrBwoiry Olesya NURSE REVIEWER.DIRECTOR OF PHYSICAL EDUCATION Work Phone: UrologyStart: 08-18-2024 End: 39-49-6609Vjhdmyn encounter procedureNicole [place] NURSE REVIEWER.DIRECTOR OF PHYSICAL EDUCATION Work Phone: UrologyComment on above:Pre-op exam (Primary Dx)Start: 08-18-2024 End: 86-47-8062Egyhfpadaacoe examination doneNicole [place] NURSE REVIEWER.DIRECTOR OF PHYSICAL EDUCATION Work Phone: [facility] Work Phone: Start: 08-17-2024 End: 66-98-8376Dcwjjaqis encounterRiya Liu PA-C Work Phone: pre AnesthesiaComment on above:Pre-Op VisitStart: 08-17-2024 End: 88-74-1579Icvyqovpc to [address]Pacc [address] Other Phone: pre AnesthesiaStart: 08-17-2024 End: 64-48-4298Ivhxbnv encounter procedurePacc [address] Other Phone: pre AnesthesiaComment on above:Pre-op evaluation (Primary Dx); Primary hypertension; Mixed hyperlipidemia; Coronary artery disease involving [place] coronary artery of [place] heart without angina pectoris; Atrial fibrillation, chronic (HCC); RVF (right ventricular failure) (HCC); Pacemaker; Former smoker; TEJ (obstructive sleep apnea); Stage 3 chronic kidney disease, unspecified whether stage 3a or 3b CKD (HCC); Rectal cancer (HCC); History of prostate cancer; Obesity (BMI 30-39.9); Anemia, unspecified type; Obesity, Class II, BMI 35-39.9Start: 08-17-2024 End: 97-21-1207Gdnlsanmitdip examination doneNorth[facility] [address] Other Phone: [facility] Work Phone: Start: 08-17-2024 End: 41-48-1663xnrixyavdyTLOTMUY M HOYFacility:[facility] HospitalStart: 08-17-2024 Encounter for other preprocedural examinationELLIOTT Gomez HospitalStart: 08-14-2024 End: 67-36-7176otijgdcpzdDYKRRZ VENNEPUREDDYFacility:[facility] Start: 08-14-2024 End: 79-71-5251Zhjkznutxb hospital visit by physicianArrival Time Radiology Work Phone: Radiology Pet CTComment on above:Rectal cancer (HCC) [C20]Start: 08-13-2024 End: 10-54-6768Wafwqcmxe to same day surgery centerCc ProviderColorectal SurgeryComment on above:Bowel prep instructionsStart: 08-13-2024 End: 91-92-0477nszrngllrzNjfjdy Roso RNUrologyStart: 08-13-2024 End: 19-66-0501L-mail encounter from [facility] ProviderColorectal Surgery Start: 08-04-2024 End: 64-01-8900Ilitijnph encounterDenise Cristofer RN Work Phone: Radiation OncologyComment on above:Physician Non Invasive Cardiologist - Other (Consult notes)Start: 07-30-2024 End: 21-05-7305Zgxwjf outpatient new 60 minutesAdarsh Lisa MARCUS Work Phone: Hematology/OncologyComment on above:Rectal cancer (HCC) (Primary Dx); Iron deficiency anemia due to chronic blood loss; History of prostate cancerStart: 07-30-2024 End: 81-44-3301Idaokjdfe encounterNatchris Chand RNHematology/OncologyComment on above:TURBT w/ Dr TovariStart: 07-30-2024 End: 87-94-3588tdjwnhzlowCPPW A SHAPIROFacility:[facility] Hospitaltart: 07-30-2024 End: 02-46-8259Xlvgpeb encounter River Harrison MD Work Phone: Radiation OncologyComment on above:Rectal cancer (HCC) Start: 07-29-2024 End: 78-30-6556Zrqxwbkyw Juliana Wilder MD Work Phone: CardiologyComment on above:Post Dc Program Call - Fyi Lab OrdersStart: 07-29-2024 End: 83-43-0218elhzlsxmozWzplPedro Luis Coyne MD Work Phone: Hematology/OncologyComment on above:Rectal cancer (HCC) (Primary Dx)Start: 07-29-2024 End: 00-79-8820Rwxnujgwncdw consultation with Iris Coyne MD Work Phone: Hematology/OncologyStart: 07-29-2024 End: 93-69-4391yetxmqxfziIYAK A SHAPIROFacility:[facility] Hospitaltart: 07-23-2024 End: 40-76-9251Izsctcdyt Ranulfo Coyne MD Work Phone: Hematology/OncologyComment on above:Physician Non Invasive Cardiologist - OtherStart: 07-22-2024 End: 09-67-4095cecorbuzcpFAVB A SHAPIROFacility:[facility] Hospitaltart: 07-22-2024 End: 16-36-9761qzgkjesupzDpvhPedro Luis Coyne MD Work Phone: Hematology/OncologyComment on above:Rectal cancer (HCC)Start: 07-22-2024 End: 73-16-0824Jitxdu outpatient visit 25 minutesMicha Avina MD Work Phone: Colorectal SurgeryComment on above:Rectal cancer (HCC) (Primary Dx); Bladder mass; Prostate cancer managed with active surveillance (HCC)Start: 07-22-2024 End: 65-61-0991lxirexzskoAZEOIUDenise Pérezcility:[facility] Start: 07-22-2024 End: 79-57-8441Yicibfp encounter Kika Sanchez MD Work Phone: UrologyComment on above:Screening for genitourinary condition (Primary Dx); Neoplasm of bladderRectal cancer (HCC)Start: 07-22-2024 End: 15-81-2416nspozmijmpLCBP ALMASSIFacility:[facility] Hospitaltart: 07-03-2024 End: 89-10-9866Nceptpn encounter Marcy Mcduffie APRN.CNP Work Phone: CardiothoracicComment on above:S/P CABG x 3 (Primary Dx); Atrial fibrillation, chronic (HCC); Stage 3 chronic kidney disease, unspecified whether stage 3a or 3b CKD (HCC) Start: 07-03-2024 End: 18-99-5444dgaztibqtrDYAZJDDenise Pérezcility:[facility] Start: 07-03-2024 End: 70-91-0597Aiyipvtfpe hospital visit by physicianXr Chest Main J1 Work Phone: RadiologyComment on above:Surgery follow-up [Z09] Start: 07-01-2024 End: 13-84-9551RpvgcgRip Wilder MD Work Phone: CardiothoracicComment on above:Surgery follow-up (Primary Dx); Chest pain, unspecified typeStart: 06-24-2024 End: 89-95-0283Ntnkqdb phone/ntrnet/ehr assmt&mgmt 11- minColorectal Tb Conference ()Tumor BoardComment on above:Tumor Board GI ColorectalStart: 06-22-2024 End: 10-44-1355Dvqogwhzfa and management of inpatientDOUGLAS M HOY Facility:[facility]: 06-19-2024 End: 72-11-5816Ockjrgsxdu and management of inpatientDOUGLAS M HOY Facility:[facility]: 06-16-2024 End: 37-81-4580Warkwmsnft and management of inpatientRACHEL A JIMENEZ [facility]: 06-15-2024 End: 29-39-7172Dxdldafknj and management of inpatientDOUGLAS M HOY [facility] HospitalStart: 06-13-2024 End: 77-46-2765Dpytvurhnw and management of inpatientROBIN KATHLEEN Facility:[facility]tart: 06-11-2024 End: 65-58-2552Hzqzapxdgy and management of inpatientSTEPSHRAVAN Pickering SUJATA Facility:[facility]tart: 17-73-6219pvjtypkicjJiuhgjsb: BellevueStart: 03-30-2024 End: 18-10-1191swvuxxekshAhtkelj Vytautas Giedraitis MDFacility:[facility] Start: 03-02-2024 End: 97-93-9692sllffzshkhRkmbdxi Vytautas Giedraitis MDFacility:[facility] Start: 01-27-2024 End: 58-23-0820eonsdkeqcrWoioorq Vytautas Giedraitis MDFacility:[facility] Start: 12-30-2023 End: 54-39-9284zpizwptnmkTsgnvkc Vytautas Giedraitis MDFacility:[facility] Start: 09-16-2023 End: 92-56-7909rnqykggspjInlpzga Vytautas Giedraitis MDFacility:[facility] Start: 06-24-2023 End: 40-35-6350harivgqmawHsnmoff Vytautas Giedraitis MDFacility:[facility] Start: 06-10-2023 End: 01-00-0496cefwoivgetRxhyclr Vytautas Giedraitis MDFacility:[facility] Start: 05-27-2023 End: 11-59-9949qrgycdlzkoGucbnjm Vytautas Giedraitis MDFacility:[facility] Start: 01-16-2023 End: 09-02-8660vysochmgwkZI ELLIOT HOY .Facility:S0Uzlsv: 54-04-3095gmoxnfezre DR ELLIOT DECKER .Facility:K9Nnsnx: 12-18-2022 End: 69-37-3693oxdvorevmqXN CLIFTON Kang EMILIOFacility:L0Pahrx: 10-01-2022 End: 80-62-9369Skmlcyavqe and management of inpatientDR ELLIOT HOY .Facility:H1 Start: 09-10-2022 End: 74-64-1782bgucgjgkrtUD ELLIOT HOY .Facility:F8Qbvbb: 69-34-0976vpusdwvqdq DR ELLIOT DECKER .Facility:T5Gjyzn: 05-22-2022 End: 19-37-1252rmhcwivxafOBWJFA CRAMERFacility:L7Uglan: 05-21-2022 End: 36-65-5627wnmlxfmpomFZOKBQ CRAMERFacility:H0Cguls: 04-23-2022 End: 05-36-4083tikhoxmxipPV ELLIOT HOY .Facility:E7Qnwyd: 03-23-2022 End: 94-36-1300vvpffozypiHTFF CHACKOFacility:G3Nugdd: 03-22-2022 End: 50-48-2650iiltzlpymmQFYY CHACKOFacility:UTMCStart: 03-20-2022 End: 22-27-6504ovchdbslnlRT ELLIOT HOY .Facility:B1Mogxb: 03-13-2022 End: 02-72-3814Wpyxwjalhu and management of inpatientDR ELLIOT HOY .Facility:H1 Start: 01-25-2022 End: 50-82-9517hffjuxauxrAKTWXI CRAMERFacility:H1 Procedures DateProcedureProcedure DetailPerforming ClinicianStart: 93-51-6621Pjji bld gluc mntr dev cleared fda spec home useCcf ProviderStart: 09-43-3019Nqcbkwej sigmoidoscopyRACHEL KOCHStart: 59-26-2596Kkiduxgrfxyjs flx dx w/collj spec br/wa if pfrmdCcf ProviderStart: 58-06-8961KDDUOOBV NON-GYNElliott Sanchez MD Work Phone: Start: 19-52-7727Nwxpt dip stick/tablet rgnt auto w/o microscopyElliott Sanchez MD Work Phone: Start: 00-79-2843Wylytlfhbz exam chest 2 Lena Wilder MD Work Phone: Start: 35-99-8918Nrvdydqf screenRACHEL BARBARAComment on above:Order Comment: Specimen Type: BLOOD SPECIMENOrdering Facility: [facility] Address:[address] [place], [place] [address]Performed By: #### TSCR ####CC MAIN BLOOD BANKCLIA [id number] [address]Start: 77-78-8531Mfbmvhqz screen ELENODEANNA JIMENEZComment on above:Order Comment: Specimen Type: BLOOD SPECIMENOrdering Facility: [facility] Address:[address] [place], [place] [address]Performed By: #### TSCR ####CC MAIN BLOOD BANKCLIA [id number] [address] AMERICAStart: 06-13-2024 EchocardiographyRACHEL KOCHStart: 53-98-7046Halzmmju screenRACHEL KOCHComment on above:Order Comment: Specimen Type: BLOOD SPECIMENOrdering Facility: [facility] Address:[address] [place], [place] [address]Performed By: #### TSCR ####CC MAIN BLOOD BANKCLIA [id number] LANI FERRARI [id number],[place] [address] [place] AMERICAHistory of coronary artery bypass graftingS/P CABG x 3Kthu Mcduffie APRN.DIRECTOR OF PHYSICAL EDUCATION Work Phone: Plan of Treatment DateCare ActivityDetailAuthorStart: 54-67-1563Nikyujpr ScreeningDiabetes ScreeningCleveland Clinic Medina Hospitaltart: 75-23-0892Fvslsqip ScreeningDiabetes Screening [facility] Hospitaltart: 64-92-4864Qpawkikq ScreeningDiabetes ScreeningC[facility] Clinic Medina Hospitaltart: 77-26-4440Jingklpm ScreeningDiabetes ScreeningRegency Hospital [facility] Start: 85-02-9845Pvuqwvir ScreeningDiabetes ScreeningC[facility] Clinic [facility] Hospitaltart: 87-07-0494Eykxcrpy blood countHemoglobin/HematocritC[facility] Clinic [facility] Hospitaltart: 70-36-0423Qnjmykbter measurementSerum CreatinineC[facility] Clinic Medina Hospitaltart: 81-69-3807Gvmxkayx blood countHemoglobin/HematocritC[facility] Clinic [facility] Hospitaltart: 72-90-5138Lruohisjkf measurementSerum [facility] Hospitaltart: 90-10-9424DO Controlled (<130/80)BP Controlled (<130/80)[facility]tart: 18-23-9211Dmtdndbh blood countHemoglobin/HematocritC[facility] Clinic [facility] Hospitaltart: 35-01-0763Qpwrpglozi measurementSerum [facility] Hospitaltart: 40-66-1015Mxrkbksu blood countHemoglobin/HematocritC[facility] Clinic [facility] Hospitaltart: 84-15-6795Wukltahjil measurementSerum [facility] Hospitaltart: 42-22-7689Crrgbdvu blood countHemoglobin/HematocritCleveland Clinic Medina Hospitaltart: 26-71-4520Zbupytuyrn measurementSerum [facility] Hospitaltart: 98-52-5886Mjqbalciw B surface antibody levelLDL [facility] Start: 11-16-2024 End: 56-53-6621Syqthc-up brytiwsai51/06/2025 2:30 PM EST Visit (SP) Office Hematology/Oncology [address] [place] [address] [place], [place] [phone] Fred Gonzalez MD [address] [facility] [place] [address] 8 week follow up labHematology/OncologyComment on above:8 week follow up labStart: 11-16-2024 End: 39-05-2015Kmapcvg encounter djsppjhwo55/06/2025 2:15 PM EST Office Visit [facility] [address] [place] [address] 8 week follow up labNortKalamazoo Psychiatric Hospital LaboratoryComment on above:8 week follow up labStart: 55-33-3110Nfjziyn Directive DiscussionAdvance Directive DiscussionCleveland Clinic Medina Hospitaltart: 10-01-2024 End: 29-42-3965Mbwxgrr encounter /21/2024 2:10 PM EST Appointment MRI Q [address] [address] DUE TO PT IMPLANT- IF APPT NEEDS TO BE RESCHEDULED IT MUST BE SENT TO THE FOLLOWING STAFF MESSAGE ADDRESS: IMAGING IMPLANTS [[id number]]. PACEMAKER/ICD approved to schedule by: [facility] Marleny Comment on above:DUE TO PT IMPLANT- IF APPT NEEDS TO BE RESCHEDULED IT MUST BE SENT TO THE FOLLOWING STAFF MESSAGE ADDRESS: IMAGING IMPLANTS [[id number]]. PACEMAKER/ICD [facility] to schedule by: [facility] HIGHLANDStart: 09-30-2024 End: 83-03-6729Jjthxho encounter prztbkauz66/20/2024 9:[address] [facility] [place] [address] [place], [place] DUE TO PT IMPLANT- IF APPT NEEDS TO BE RESCHEDULED IT MUST BE SENT TO THE FOLLOWING STAFF MESSAGE ADDRESS: IMAGING IMPLANTS [[id number]]. PACEMAKER/ICD approved to schedule by: [facility] Radiology MRIComment on above:DUE TO PT IMPLANT- IF APPT NEEDS TO BE RESCHEDULED IT MUST BE SENT TO THE FOLLOWING STAFF MESSAGE ADDRESS: IMAGING IMPLANTS [[id number]]. PACEMAKER/ICD approved to schedule by: HHStart: 09-24-2024 End: 10-39-4378Jzbsmdd encounter procedureRadiation OncologyComment on above:NEW START RECTUM (TANNER PT)NEW START RECTUM - WOULD LIKE AFTERNOONS (TANNER PT)Start: 09-21-2024 End: 71-15-8625Egvfzo-up pvkubjtmr73/11/2024 2:30 PM EST Visit (SP) Office Hematology/Oncology [address] [facility] [address] [place], [place] [phone] Fred Gonzalez MD [address] [place] [address] [place] [address] 2 week follow up labHematology/OncologyComment on above:2 week follow up labStart: 09-21-2024 End: 72-14-8359Sdgifib encounter /11/2024 2:15 PM EST Office Visit [facility] Laboratory [address] [place], [place] [address] [address] 2 week follow up labNortKalamazoo Psychiatric Hospital LaboratoryComment on above:2 week follow up labStart: 09-17-2024 End: 76-76-1772Tsowmvz encounter procedureRadiation OncologyComment on above:NEW START, PELVISPelvis pt prefers afternoons (TANNER PT)Start: 09-08-2024 End: 44-34-6268Fnmsqmh encounter suwfbjyeu35/29/2024 10:45 AM EDT Appointment Radiology Pet CT [address] [facility] [facility] [place] [address] PET Radiology Pet CTComment on above:PETStart: 09-07-2024 End: 68-07-1808Iatwpgh evaluation of patient and qnrzni4009/07/2024 3:00 PM EDT Nurse Visit Hematology/Oncology [address] [facility] [place] [address] [phone] Abril Gardner RN [address] [facility] [place] [address] Chemo Education after appointment with Dr. Tenorio Hematology/OncologyComment on above:Chemo Education after appointment with Dr. GlassyStart: 09-07-2024 End: 12-06-7564agugoxgyzt02/28/2024 2:00 PM EDT Visit (SP) Office Hematology/Oncology [address] [facility] [address] [place], [place] [phone] Fred Gonzalez MD [address] [facility] [facility] [place] [address] ArrivedHematology/OncologyComment on above:Arrived Start: 09-07-2024 End: 89-24-3503XQO W Auto Differential panel - BloodCOMPLETE BLOOD COUNT AND DIFFERENTIAL Lab Routine Rectal cancer (HCC) Expected: 09/07/2024, Expires: 12/07/2024[facility] Work Phone: comment on above:Expected: 09/07/2024, Expires: 12/07/2024Start: 09-07-2024 End: 09-66-9261Vnedjgkfrqajb metabolic 2000 panel - Serum or PlasmaCOMPREHENSIVE METABOLIC PANEL Lab Routine Rectal cancer (HCC) Expected: 09/07/2024, Expires: 12/07/2024leveland ClinicComment on above:Expected: 09/07/2024, Expires: 12/07/2024Start: 09-07-2024 End: 09-33-6411Pmjlpq-up dxcvvaoqm17/28/2024 2:00 PM EDT Visit (SP) Office Hematology/Oncology [address] [facility] [facility] [place], [place] [phone] Fred Gonzalez MD [address] [facility] [place] [address] 2 week follow up on 09-07-24 per check out note Hematology/OncologyComment on above:2 week follow up on 09-07-24 per check out noteStart: 09-07-2024 End: 42-13-3721Clvoxgq encounter pglvjzicd54/28/2024 1:45 PM EDT Office Visit [facility] [place] [address] 2 week follow up on 09-07-24 per check out noteNortKalamazoo Psychiatric Hospital LaboratoryComment on above:2 week follow up on 09-07-24 per check out noteStart: 09-04-2024 End: 78-93-2973Wuiyufh encounter procedureRadiation OncologyComment on above:PRE SIM - TREATING RECTUM W IV ORAL CONTRASTSIM - TREATING RECTUM W IV ORAL CONTRASTStart: 09-03-2024 End: 87-39-3604Osbztcoan qecypne2809/03/2024 3:00 PM EDT Education Nutrition Therapy [address] [facility] [facility] [place] [address] Leila Heredia, RD [address] [facility] [facility] [place] [address] Rectal cancer (HCC) [C20]Nutrition TherapyComment on above:Rectal cancer (HCC) [C20] Start: 08-29-2024 End: 39-78-5791IT Abdomen and Pelvis W contrast IVCT ABD/PEL W IVCON Radiology Routine Rectal cancer (HCC) Expected: 08/29/2024, Expires: 08/29/2025leveland ClinicComment on above:Expected: 08/29/2024, Expires: 08/29/2025Start: 08-29-2024 End: 79-19-8972FM Chest W contrast IVCT CHEST W IVCON Radiology Routine Rectal cancer (HCC) Expected: 08/29/2024, Expires: 08/29/2025leveland ClinicComment on above:Expected: 08/29/2024, Expires: 08/29/2025Start: 08-27-2024 End: 03-64-5832wOHF in Platelet poor plasma by Coagulation assayACTIVATED PARTIAL THROMBOPLASTIN TIME Lab Routine Rectal cancer (HCC) Bladder mass Expected: 08/27/2024 (Approximate), Expires: 11/26/2024leveland ClinicComment on above:Expected: 08/27/2024 (Approximate), Expires: 11/26/2024Start: 08-27-2024 End: 43-01-1653Jyvjctfw identified in Urine by CultureURINE CULTURE Microbiology Routine Rectal cancer (HCC) Bladder mass Unspecified abnormal findings in urine Expected: 08/27/2024 (Approximate), Expires: 11/26/2024[facility] ClinicComment on above:Expected: 08/27/2024 (Approximate), Expires: 11/26/2024Start: 08-27-2024 End: 59-26-4172Bgdsm metabolic 2000 panel - Serum or PlasmaBASIC METABOLIC PANEL Lab Routine Rectal cancer (HCC) Bladder mass Expected: 08/27/2024 (Approximate ), Expires: 11/26/2024[facility] Work Phone: comment on above:Expected: 08/27/2024 (Approximate), Expires: 11/26/2024Start: 08-27-2024 End: 18-50-7117TQA panel - Blood by Automated countCOMPLETE BLOOD COUNT Lab Routine Rectal cancer (HCC) Bladder mass Expected: 08/27/2024 (Approximate), Expires: 11/26/2024[facility] ClinicComment on above:Expected: 08/27/2024 (Approximate), Expires: 11/26/2024Start: 08-27-2024 End: 25-27-9316SS panel - Platelet poor plasma by Coagulation assayPROTHROMBIN TIME Lab Routine Rectal cancer (HCC) Bladder mass Expected: 08/27/2024 (Approximate), Expires: 11/26/2024[facility] ClinicComment on above:Expected: 08/27/2024 (Approximate), Expires: 11/26/2024Start: 08-27-2024 End: 88-77-8910Fkazbkzluh complete panel - UrineURINALYSIS, WITH MICROSCOPIC Lab Routine Rectal cancer (HCC) Bladder mass Expected: 08/27/2024 (Approximate), Expires: 11/26/2024leveland ClinicComment on above:Expected: 08/27/2024 (Approximate), Expires: 11/26/2024Start: 08-27-2024 End: 37-87-2742Sjlzmt-up encounterHematology/OncologyComment on above:4 week follow up after imagingStart: 08-20-2024 End: 64-89-7933Yvbzvslzp to same day surgery mhgfwz3508/20/2024 7:30 AM EDT - 08/20/2024 10:49 AM EDT Surgery Admitting [address] [place] [address] Elliott Sanchez MD [address] [place] [address] RESECTION BLADDER TUMOR TRANSURETHRALAdmittingComment on above:RESECTION BLADDER TUMOR TRANSURETHRALStart: 08-20-2024 End: 91-74-9277Zdexeqqatbi w/biopsy single/multipleCOLONOSCOPY WITH BIOPSY Rectal cancer (HCC) Bladder mass 08/20/2024 7:[facility]IONStart: 08-20-2024 End: 48-31-9909Kqhatbxrzebqdwxqr w/dest &/rmvl med bladder tumRESECTION BLADDER TUMOR TRANSURETHRAL Rectal cancer (HCC) Bladder mass 08/20/2024 7:30 [facility]: 63-08-9230Jcpvbgsgof hospital visit by /10/2024 7:30 AM EDT Hospital Encounter Admitting [facility] [place] [address] Elliott Sanchez MD [address] [id number] Rectal cancer (HCC) [C20], Bladder mass [N32.89]Admitting Comment on above:Rectal cancer (HCC) [C20], Bladder mass [N32.89]Start: 08-18-2024 End: 81-26-2177Hvnkcfn encounter foromnatx58/08/2024 8:30 AM EDT Office Visit Urology [address] [address] Joaquina Dacosta APRN.DIRECTOR OF PHYSICAL EDUCATION [address] [place] [address] T/O ~ over the phone~UrologyComment on above:T/O ~ over the phone~Start: 08-17-2024 End: 30-74-0708Xncnokb encounter procedurePre AnesthesiaComment on above:pre op labs and urineStart: 08-14-2024 End: 69-21-2481Wgspede encounter sjithdbhz67/04/2024 9:45 AM EDT Appointment Radiology Pet CT [address] [place] [address] [place] [address] CT CAP W IV Radiology Pet CTComment on above:CT CAP W IVStart: 07-30-2024 End: 14-38-6607ljsjmbwima00/19/2024 3:00 PM EDT Visit (SP) Office Hematology/Oncology [address] [place], [place] [phone] Fred Gonzalez MD [address] [place] [address] [place] [address] Merritt Coyne DX: Rectal CASEE TANNER PRIORHematology/OncologyComment on above:Ref by Dr Merritt Coyne DX: Rectal CASEE TANNER PRIORStart: 07-30-2024 End: 49-58-7361Qnlgyyzjeosgxgtx Ag [Mass/volume] in Serum or PlasmaCleveland ClinicComment on above:Expected: 07/30/2024 (Approximate), Expires: 10/29/2024 Start: 07-30-2024 End: 36-32-3586Wrjnjyoqx (Vitamin B12) [Mass/volume] in Serum or PlasmaCleveland ClinicComment on above:Expected: 07/30/2024 (Approximate), Expires: 07/30/2025 Start: 07-30-2024 End: 96-08-1542Gjqgfpiv [Mass/volume] in Serum or PlasmaCleveland ClinicComment on above:Expected: 07/30/2024 (Approximate), Expires: 07/30/2025Start: 07-30-2024 End: 44-59-8374Whtwws [Mass/volume] in Serum or PlasmaCleveland ClinicComment on above:Expected: 07/30/2024 (Approximate), Expires: 07/30/2025Start: 07-30-2024 End: 10-34-4310Umdt and Iron binding capacity panel - Serum or PlasmaAshtabula General Hospital Work Phone: comment on above:Expected: 07/30/2024 (Approximate), Expires: 07/30/2025Start: 07-30-2024 End: 60-45-6430Lpgxwxrz specific Ag [Mass/volume] in Serum or PlasmaCleveland ClinicComment on above:Expected: 07/30/2024, Expires: 10/29/2024Start: 07-30-2024 End: 58-28-7768Zgvezbr encounter /19/2024 1:00 PM EDT Office Visit Radiation Oncology [address] [place] [address] Noah Harrison MD [address] [place] [address] Merritt Coyne DX: Rectal CASEE MONTALVO AFTERRadiation OncologyComment on above:Ref by Dr Merritt Coyne DX: Rectal CASEE MONTALVO AFTERStart: 07-29-2024 End: 09-73-5294qmyeqlaptd29/18/2024 1:30 PM EDT [facility] Hematology/Oncology [address] [place] [address] Jeremie Coyne MD [address] [place], [place] [phone] EST PHONEHematology/OncologyComment on above:EST PHONEStart: 07-22-2024 End: 71-55-0452zqtogescwk51/11/2024 2:30 PM EDT Visit () Office Hematology/Oncology [address] [place], [place] [phone] Jeremie Coyne MD [address] [place] [address] rectal cancerHematology/OncologyComment on above:rectal cancerStart: 07-22-2024 End: 23-65-0623Rtvxcpi encounter procedureColorectal SurgeryComment on above: rectal canerRECTAL CANCERrectal cancer: Seeing Dr. Earl @ 11AM and Dr. Coyne @ 2:30PM.Start: 01-52-0054Fncst-19 Vaccine ( season)Covid-19 Vaccine ( season)[facility]: 94-82-4179Dzece-19 Vaccine ( season)Covid-19 Vaccine ( season)[facility]: 09-67-8177Bfoesztpi vaccinationInfluenza Vaccine (#1)[facility]: 07-03-2024 End: 26-58-5830Nelpkz-up ycslenqvz73/23/2024 2:45 PM EDT Results Only Cardiology [address] [phone] Surgery follow-upCardiology Comment on above:Surgery follow-upStart: 07-03-2024 End: 72-21-8815vbokkilssj15/23/2024 2:30 PM EDT Results Only [address] [place] [address] [address] [phone] CBC CMPMain [place] [address] Draw StationComment on above:CBC CMPStart: 07-03-2024 End: 71-11-6590Lrwhtmw encounter procedureRadiologyComment on above:Surgery follow-upSNF PT FULL HOURStart: 07-01-2024 End: 54-79-1888IVJ panel - Blood by Automated countCOMPLETE BLOOD COUNT Lab Routine Chest pain, unspecified type Expected: 07/01/2024, Expires: 09/30/2024 [facility] Work Phone: Comment on above:Expected: 07/01/2024, Expires: 09/30/2024Start: 07-01-2024 End: 98-06-8233Sxdsqmglkdiri metabolic 2000 panel - Serum or PlasmaCOMPREHENSIVE METABOLIC PANEL Lab Routine Surgery follow-up Expected: 07/01/2024, Expires: 09/30/2024leveland ClinicComment on above:Expected: 07/01/2024, Expires: 09/30/2024Start: 50-40-2455Ddmmi-19 Vaccine ( season)Covid-19 Vaccine ( season)[facility]: 55-53-8809Qjrqwxq Directive DiscussionAdvance Directive DiscussionCleveland Clinic Medina Hospitaltart: 27-38-7252NLI Vaccine (1 - 1-dose 75+ series)RSV Vaccine (1 - 1-dose 75+ series)[facility]: 24-83-1852FAP Vaccine (1 - 1-dose 60+ series)RSV Vaccine (1 - 1- dose 60+ series)[facility]: 64-10-6550Rehpapvo Vaccine (1 of 2) Shingrix Vaccine (1 of 2)[facility]: 61-19-6749Kwsdlybe Vaccine (1 of 2)Shingrix Vaccine (1 of 2)[facility]: 40-94-5596Bghlu microalbumin profileDTaP,Tdap,Td Vaccine (1 - Tdap)[facility]: 06-92-8691Okknoj PCP Team Chronic Disease VisitAnnual PCP Team Chronic Disease VisitCleveland Clinic Medina Hospitaltart: 46-38-0615Rhcadhc ScreeningAnxiety ScreeningCleveland Clinic [facility] Hospitalt[facility]: 09-71-4805EX Controlled (<130/80)BP Controlled (<130/80)[facility]: 22-66-5116Dzagmlhsss ScreeningDepression ScreeningOhio Valley Hospitalrt: 39-56-5268Yocmtnfri C screeningHepatitis C ScreeningRegency Hospital ToledoBacteria identified in Urine by CultureURINE CULTURE Microbiology Routine Screening for genitourinary condition 07/22/2024 10:17 AM [facility] Work Phone: ct Abdomen and Pelvis W contrast IVCT ABD/PEL W IVCON Radiology Routine Rectal cancer (HCC) 08/14/2024 1:18 PM [facility] Work Phone: ct Chest W contrast IVCT CHEST W IVCON Radiology Routine Rectal cancer (HCC) 08/14/2024 1:18 PM [facility] Guidance for radiation treatment of Unspecified body regionCT SIM PLANNING RADIATION ONCOLOGY Radiology Routine Rectal cancer (HCC) Ordered: 09/04/2024[facility] Work Phone: Comment on above:Ordered: 09/04/2024 End: 63-78-7656FEN COMPLETEECG COMPLETE ECG Routine Surgery follow-up 1 Occurrences starting 07/01/2024 until 07/01/2025[facility] HospitalComment on above:1 Occurrences starting 07/01/2024 until 07/01/2025PET+CT Guidance for localization of tumor of Skull base to mid-thigh-- W 18F-FDG IVNM PET/CT SKULL- THIGH INITIAL Radiology Routine Rectal cancer (HCC) 09/08/2024 12:17 PM EDT [facility] Work Phone: URINALYSIS, REFLEX MICROSCOPICURINALYSIS, REFLEX MICROSCOPIC Lab Routine Screening for genitourinary condition [facility] Work [facility]: comment on above:Ordered: 08/18/2024 End: 29-09-4016WY Chest PA and LateralXR CHEST 2V FRONTAL/LAT Radiology Routine Surgery follow-up 1 Occurrences starting 07/01/2024 until07/31/2025[facility] HospitalComment on above:1 Occurrences starting 07/01/2024 until 07/31/2025 Immunizations Immunization DateImmunizationNotesCare TokkyiqbPszjxetq79-80-2977griyxmtae (HD- IIV4) vaccine, age 65+ yr, high dose, quadrivalent, PF (FLUZONE HIGH-DOSE)Riya Liu PA-C Work Phone: [facility] ToledoBgzpgp47-22-9348tatsiajqb virus vaccine, unspecified formulationMasood Wilder MD Work Phone: [facility] ToledoMwavld58-31-2397lxqbxwlhw, high dose seasonal, preservative-freeLauren Jane PA-C Work Phone: [facility] ToledoVxemrt57-05-3205erncobgec (HD-IIV4) vaccine, age 65+ yr, high dose, quadrivalent, PF (FLUZONE HIGH-DOSE)Riya Liu PA-C Work Phone: [facility] ToledoJuumis54-31-6885Kbsednhv trivalent influenza vaccine, adjuvanted, preservative freeKassieuren Jane JOHNSON Work Phone: [facility] ToledoBtqbok61-33-3759wgrfbgknu, injectable, quadrivalent, preservative freeLauren Jane PA-C Work Phone: [facility] ToledoUtihia64-90-1359giuorzwqo, high dose seasonal, preservative-freeLauren Jane PA-C Work Phone: [facility] ToledoRudifg77-34-0939gkrmaqfrcpuk conjugate vaccine, 13 valentLauren Jane FRANCISCO-C Work Phone: [facility] ToledoSeounk63-14-1810vkcbjgujsbnt polysaccharide vaccine, 23 Erik Liu PA-C Work Phone: [facility] Payers DatePayer CategoryPayerPolicy [id number] Health InsuranceMMO MEDICARE SUPPLEMENT Member Subscriber Plan / Payer (Effective 2021-Present) Name: Brian Oneal Relation to Subscriber: Self Name: Brian Oneal Payer ID: Not on file Type: Indemnity Address: [address] [id number] [id number] 1960Self-pay1960 [id number] 2.0.1.701410.3.579.2.647 [id number] 2.840.1.574124.3.57[id number] 2.840.1.517020.3.57[id number] 2.840.1.812727.3.57[id number] 2.840.1.050958.3.57[id number] 2.16840.1.751944.3.57[id number] 2.840.1.254697.3.57[id number] 2.16.840.1.499275.3.57[id number] 2.16840.1.834110.3.57[id number] 2.840.1.969220.3.57[id number] 2.16840.1.445816.3.57[id number] 2.840.1.923729.3.57[id number] 2..1.559787.3.57[id number] 2.840.1.975143.3.57[id number] 2.840.1.446357.3.57[id number] 2.0.1.797225.3.57[id number] 2..1.534873.3.57[id number] 2.840.1.827873.3.57[id number] 2.840.1.759387.3.57[id number] 2.840.1.750952.3.57[id number] 2.840.1.815601.3.57[id number] 2.84.1.177679.3.579.2.196 Social History DateTypeDetailFacilityTobacco smoking status NHISTobacco smoking consumption unknownCleveland Clinic Medina Hospitaltart: 06-12-2024 End: 60-01-1966Bjnqyfl of Social functionRegency Hospital Toledo Work Phone: Start: 06-12-2024 End: 11-96-1664KIO UtilitiesRegency Hospital [facility]edo Work Phone: Has the TribeHired, gas, oil, or water Atempo threatened to shut off services in your home in past 12MoNKettering Health Washington Township Work Phone: (I/We) worried whether (my/our) food would run out before (I/we) got money to buy more.Never trueRegency Hospital ToledoIn the past 12 months, has lack of transportation kept you from medical appointments or from getting medications?NoCKnox Community Hospitaltart: 09-82-1584Zmu assigned at birthNot on fileCleveland Clinic Medina Hospitaltart: 07-22-2024 End: 76-84-1059Gamkhqf smoking status NHISEx-smokerCleveland Clinic Medina Hospitaltart: 80-31-7950Gmmgqfm of tobacco useCurrent smokerCleveland Clinic Medina Hospitaltart: 07-30-1966 History of tobacco useCigarette SmokerCleveland Clinic Medina Hospitaltart: 07-22-2024 End: 04-12-2824Tsuvzjj use and exposureSmokeless tobacco non-userCleveland Clinic Medina Hospitaltart: 07-30-2024 End: 77-14-4454Dxosljxjb beverage intakeEx-drinker (finding)[facility] Medical Equipment Procedure CodeEquipment CodeEquipment Original TextEquipment IdentifierDatesClip Atriclip Gillinov-Gudelia 180d Long 35mm 25mm Internal Head - [id number]: 69-30-4531Wrvitxbcm Ibis And 1 Ea Short 10 Cm Cannula - [id number]_qbiGmslt: 08-93-0879Kvzqjxjt Aigisrx R Medium Defibrillator Absorbable Antibacterial - [id number]_xhlCkhba: 76-32-0813Eslf Thk1.65mm Ptfe 4x.5in Cardiovascular Sterile - [id number]_pdvDsihv: 15-51-9464Vctjt Eleno Hoover 45 [id number]_impStart: 71-94-9841Bcdlpps on above:Description: 1.5T ONLYOther Eleno Hoover 53 [id number]_impStart: 08-41-0045Wtuu Capsure Epi 8fr Steroid Eluting Silicone 35cm Pacing Is-1 Bipolar - [id number]_xix Start: 08-94-8106423988 Edora 8 Asad [id number]_impStart: 03-22-2022 Goals DatePatient GoalDesired Activity/StatePersonal health goal Functional Status MgzzEyrhnizlutRdybzpIudakvxp39-95-6163Cqy you deaf, or do you have serious difficulty hearingNo 06/26/2024 1:36 PM EDT Shannan Lee RN [facility]Wsbgsm53-82-9674Ion you blind, or do you have serious difficulty seeing, even when wearing glassesNo 06/26/2024 1:36 PM EDT Shannan Lee RN [facility]08-16-2024Do you have serious difficulty walking or climbing stairsYes 06/26/2024 1:36 PM EDT Shannan Lee RN [facility]08-16-2024Do you have difficulty dressing or bathingYes 06/26/2024 1:36 PM EDT Shannan Lee RN [facility] HospitalHpkfbt13-06-9310Osonkuf of a physical, mental, or emotional condition, do you have difficulty doing errands alone such as visiting a physician's office or shoppingYes 06/26/2024 1:36 PM EDT Shannan Lee RN Yes [facility] Mental Status RcptNjwfibgridCcrhxkBadefsiy64-32-2295Xchribv of a physical, mental, or emotional condition, do you have serious difficulty concentrating, remembering, or making decisionsNo 06/26/2024 1:36 PM EDT Shannan Lee RN [facility] Clinical Notes 03-23-2022 to 03-11-2025 Note Date & UdxhLhmjOnrrabfy52-43-6946 NotePatient is here today for a 4 month follow up. Patient states he feels good. Patient states he is mowing and doing his daily chores with out difficulty or shortness of breath. Patient state he has swelling in his right leg. Patient denies chest pain, dizziness, or palpitations. Review of Systems Constitutional: Negative for malaise/fatigue. Cardiovascular: Positive for leg swelling.[facility] 03-11-2025 NoteCardiovascular Medicine [facility] SUBJECTIVE Chief Complaint Patient presents with Coronary [...] 07/29/2024 He recently underwent a CABG at [facility]. He was discharged from rehab yesterday. Post [...] Cervical back: Neck supple. (more content not included)...[facility]02-18-2025 Telephone encounter Note* Telephone Encounter - Heike Kelsey - 12/29/2024 4:26 PM EST I contacted the patient to get his [...] advised he will be following locally. Cady Kang [facility]02-18-2025 Miscellaneous Notes* Telephone Encounter - Heike Kelsey - 12/29/2024 4:26 PM EST I contacted the patient to get his [...] advised he will be following locally. Cady Kang documented in this encounterRegency Hospital Toledo01-15-2025 History of Present illness Narrative* Elliott Sanchez MD - 11/25/2024 1:00 PM EST Patient did not register for appointment or log in, will reach out to see if patient wishes to pursue follow-up. documented in this encounterRegency Hospital Toledo01-15-2025 NoteHNO ID: [id number] Author: ELLIOTT SANCHEZ MD Service: ? Author Type: Physician Type: Progress Notes Filed: 11/25/2024 15:22 Note Text: Patient did not register for appointment or log in, will reach out to see if patient wishes to pursue follow-up.[facility]01-10-2025 NoteUT Cardiology Note [facility] HPI: Brina Oneal is a 74 y.o. year old with past medical history of SSS s/p PPM, PVD, and CAD s/p CABG. He presents to cardiology clinic for routine follow up. Patient here for 3 mo follow up per Darrell Mueller CNP. 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 He completed cardiac [...] was initiated by the patient and conducted xrz-okhg-wp-face with use of audio-only real time telephone [...] with his significant other (more content not included)...[facility]11-21-2024 Telephone encounter Note* Telephone Encounter - Miesha Anderson - 10/01/2024 9:30 AM EST Called patient to schedule Nutrition follow up, patient declined at this time. He is putting all treatment and Radiation on hold until at least the first of the year. He will let us know if he wants to schedule. [facility]11-21-2024 Miscellaneous Notes* Telephone Encounter - Miesha [place] - 10/01/2024 9:30 AM EST Called patient to schedule Nutrition follow up, patient declined at this time. He is putting all treatment and Radiation on hold until at least the first of the year. He will let us know if he wants to schedule. documented in this encounterRegency Hospital Toledo11-13-2024 Telephone encounter Note * Telephone Encounter - Lara Evans LPN - 09/23/2024 11:40 AM EST Paresh declined chemo radiation at this time. No need to arrange device check. Lara Evans RN [facility]11-13-2024 Miscellaneous Notes* Telephone Encounter - Lara Evans LPN - 09/23/2024 11:40 AM EST Paresh declined chemo radiation at this time. No need to arrange device check. Lara Evans RN * Telephone Encounter - Lara Evans LPN - 09/04/2024 4:15 PM EDT Charlette with Darrell Mueller NP office states Paresh is not pacemaker dependent. Most recent device check in Care Everywhere was done 08/27/24. Dr. Harrison said Paresh will need a post treatment device check. Nursing will arrange for this once his treatment schedule is available. Lara Evans RN documented in this encounterRegency Hospital Toledo11-12-2024 Telephone encounter Note * Telephone Encounter - Lara Evans LPN - 09/22/2024 11:06 AM EST Paresh stopped in today to notify Dr. Harrison that he has decided not to start chemoradiation 09/24/24as planned. He states he needs to take [...] in [address] Harrison please advise onfollow up. Thanks Lara Evans RN [facility]11-12-2024 Miscellaneous Notes* Telephone Encounter - Lara Evans LPN - 09/22/2024 11:06 AM EST Paresh stopped in today to notify Dr. Harrison that he has decided not to start chemoradiation 09/24/24as planned. He states he needs to take [...] in [address] Harrison please advise onfollow up. Thanks Lara Evans RN documented in this encounterRegency Hospital Toledo11-11-2024 Instructions* Patient Instructions* Fred Gonzalez MD - 09/21/2024 2:59 PM EST Follow up in 8 weeks. He refused all the cancer treatments. documented in this encounterRegency Hospital Toledo11-11-2024 History of Present illness Narrative* Fred Gonzalez MD - 09/21/2024 2:30 PM EST PATIENT NAME: Brian Lee [facility] NO.: [id number] ATTENDING PHYSICIAN: Fred Gonzalez MD DATE OF SERVICE: 09/21/[address] [facility] [address] [facility] [address] thank you for referring Brian Oneal for [...] 11, 2024 through June 26, 2024 at [facility]. He was initially admitted to [facility] on June 04, 2024 for planned heart catheterization. This showedsignificant coronary artery disease CABG was recommended. During the hospitalization he had bloody stool since Eliquis was started in April and GI was consulted. EGD on June 05, 2024 in [place] showed erosive gastropathy with hematin throughout the [...] for CABG x 3. Maze procedure RUSS clipand right atrial pacer lead performed Imaging has included: CT scan of the chest with contrast June 05, 2024 and reviewed by [facility] radiology showingindeterminate subcentimeter pulmonary nodules. No prior imaging for review. Interstitial lung abnormalities noted. Clinical and PFT correlation recommended. CT scan abdomen and pelvis with contrast June 05, 2024 and reviewed by [facility] radiology shows a 1.5 cm sessile polypoid bladder mass concerning for neoplasm. The rectal mass seen on MRI is not identifiable. MRI of the pelvis without contrast June 09, 2024 reviewed by [facility] radiology shows a 2.4cm mass penetrating less than 1 mm beyond [...] Range Status 09/07/2024 8.5 % Final Abs Bond Date Value Ref Range Status 09/07/2024 0.67 [...] sphincter. 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 Ascending [...] for further evaluation. ASSESSMENT AND PLAN: Brian Onela is a 74 year old year old [...] sphincter. 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 Coyne at the [facility]. His recommendations were to do a repeat [...] for the bladder cancer as per the [facility] physician recommendations. - He refused bladder and [...] in [address] Jeremie Coyne [address] [facility] [address] thank you for allowing me to participate in Brian Oneal care, if there are any questions or concerns please do not hesitate to contact me at the number below. I spent a total of 20 minutes on the date of the service which included preparing to see the patient, petd-pm-twqj patient care, completing clinical documentation, obtaining and/or reviewing separately obtained history, performing a medically appropriate examination, counseling and educating the pat ient/family/caregiver, ordering medications, tests, or procedures, communicating with other HCPs (not separately reported), independently interpreting results (not separately reported), communicatingresults to the patient/family/caregiver, and care coordination (not separately reported). Fred Gonzalez MD. Hematology/Medical Oncology [facility] [phone] CC: documented in this encounterRegency Hospital [facility]edo11-11-2024 NoteSelect Medical Specialty [facility]11-08-2024 Telephone encounter Note* Telephone Encounter - Lara Evans LPN - 09/18/2024 12:23 PM EST I notified Parseh that his new start appointment has been rescheduled from 09/21/24 to 09/24/24 withan arrival time of 2:15. I explained that we need a little more time for treatment planning. He is aware not to start his Xeloda until 09/24/24 also. He is thankful for the call and denies questions at this time. Lara Evans RN [facility]11-08-2024 Miscellaneous Notes* Telephone Encounter - Lara Evans LPN - 09/18/2024 12:23 PM EST I notified Paresh that his new start appointment has been rescheduled from 09/21/24 to 09/24/24 withan arrival time of 2:15. I explained that we need a little more time for treatment planning. He is aware not to start his Xeloda until 09/24/24 also. He is thankful for the call and denies questions at this time. Lara Evans RN documented in this encounterRegency Hospital Toledo10-29-2024 History of Present illness Narrative* Lizzette Vazquez RN - 09/08/2024 10:45 AM EDT Radiology Service Progress Note DATE OF SERVICE: [...] DATE: September 08, 2024 TIME: 10:51 AM * Jaylen Moya, RT(R) - 09/08/2024 10:45 AM EDT RADIOLOGY SERVICE PROGRESS NOTE SERVICE DATE: 09/08/2024 [...] PATIENT PRESENTS WITH AN IMPLANTABLE OR ATTACHED COUNSELING CENTER MANAGER: No IV SITE: RT wrist POST EXAM PIV STATUS: Discontinued PROCEDURE TYPE: NM INJECT: PET/CT BODY SCAN. 14 mCi F18 FDG. No other medications given.. ADMINISTRATION TIME: 1050 PATIENT DISCHARGED TO: Ambulatory patient, left CT department area. A Diagnostic radioactive procedure has taken place, with no further precautions necessary other than routine body substance precautions. More information regarding radiation safety can be found usingthis link: [email or web address]%[email or web address] SIGNATURE: RT Stephane(R) PATIENT NAME: Brian Oneal DATE: September 08, 2024 TIME: 11:56 AM PAGER/CONTACT #: documented in this encounterRegency Hospital Toledo10-29-2024 NoteSelect Medical Specialty [facility]10-29-2024 NoteSelect Medical Specialty [facility]10-28-2024 Telephone encounter Note* Telephone Encounter - Shirley Bernabe - 09/07/2024 3:59 PM EDT Closing encounter as this is on hold. Shirley Bernabe [facility]10-28-2024 Miscellaneous Notes* Telephone Encounter - Shirley Bernabe - 09/07/2024 3:59 PM EDT Closing encounter as this is on hold. Shirley Bernabe * Telephone Encounter - Abril Gardner RN - 09/07/2024 2:07 PM EDT Hold please, Dr Montalvo just said that he spoke with the patient and he doesn't want to do BCG treatments at this time. Abril Gardner RN * Telephone Encounter - Abril Gardner RN - 09/07/2024 1:55 PM EDT Pt has orders in beacon from Dr Sanchez to begin BCG treatments on 09/28. These need to be scheduled please. Thanks Abril Gardner RN documented in this encounterRegency Hospital Toledo10-28-2024 NoteSelect Medical Specialty [facility]10-28-2024 History of Present illness Narrative* Abril Gardner RN - 09/07/2024 3:23 PM EDT ORAL ANTI-CANCER AGENTS EDUCATION patient here today [...] investigation and refill process. 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 He would like to hold off on starting radiation and chemo medication until 09/21. Abril Gardner RN * Kennedi Stone Formerly [facility] - 09/07/2024 3:00 PM EDT [facility] Department of Pharmacy Oncology Pharmacy Medication Education Patient Name: Brian Oneal Primary Oncologist: Lisa Diagnosis: rectal cancer Brian Oneal is a 74 year old patient here today for medication education for PO Capecitabine (Xeloda). Drug Interactions: Clinically significant interactions with chemotherapy, immunosuppression, or other standard of caretreatment plan medications anticipated: No. There are no [...] Ching Stone RPh Pager: documented in this encounterRegency Hospital [facility]10-28-2024 NoteSelect [facility]-28-2024 Telephone encounter Note* Telephone Encounter - Abril Gardner RN - 09/07/2024 2:07 PM EDT Hold please, Dr Montalvo just said that he spoke with the patient and he doesn't want to do BCG treatments at this time. Abril Gardner RN [facility] Work Phone: [phone] 173-176210-28-2024 Instructions* Patient Instructions* Fred Gonzalez MD - 09/07/2024 2:03 PM EDT Start xeloda on the start day of the radiation Pt likes to hold off on the intravesical BCG treatments F/u in 2 weeks documented in this encounterRegency Hospital [facility]10-28-2024 History of Present illness Narrative* Fred Gonzalez MD - 09/07/2024 2:00 PM EDT PATIENT NAME: Brian Oneal CLINIC NO.: [id number] ATTENDING PHYSICIAN: Fred Gonzalez MD DATE OF SERVICE: 09/07/[address] Jeremie Coyne [address] [facility] [address] thank you for referring Brian Oneal for [...] 11, 2024 through June 26, 2024 at [facility]. He was initially admitted to [facility] on June 04, 2024 for planned heart catheterization. This showedsignificant coronary artery disease CABG was recommended. During the hospitalization he had bloody stool since Eliquis was started in April and GI was consulted. EGD on June 05, 2024 in [place] showed erosive gastropathy with hematin throughout the [...] for CABG x 3. Maze procedure RUSS clipand right atrial pacer lead performed Imaging has included: CT scan of the chest with contrast June 05, 2024 and reviewed by [facility] radiology showingindeterminate subcentimeter pulmonary nodules. No prior imaging for review. Interstitial lung abnormalities noted. Clinical and PFT correlation recommended. CT scan abdomen and pelvis with contrast June 05, 2024 and reviewed by [facility]ology shows a 1.5 cm sessile polypoid bladder mass concerning for neoplasm. The rectal mass seen on MRI is not identifiable. MRI of the pelvis without contrast June 09, 2024 reviewed by [facility]ology shows a 2.4cm mass penetrating less than 1 mm beyond [...] mouth every 12 hours for 30 days. (Patientnot taking: Reported on 08/17/2024) No current facility-administered [...] Ht 167.6 cm (5' 5.98 ) Wt 98.9kg (218 lb 0.6 oz) SpO2 94% BMI [...] Range Status 09/07/2024 8.5 % Final Abs Bond Date Value Ref Range Status 09/07/2024 0.67 [...] sphincter. 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 Ascending [...] sphincter. 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 - He refused bladder and [...] in [address] Jeremie Coyne [address] [facility] [address] thank you for allowing [facility] to [facility], if there are any questions or concerns please do not hesitate to contact me at the number below. I spent a total of 20 minutes on the date of the service which included preparing to see the patient, [id number] patient care, completing clinical documentation, obtaining and/or reviewing separately obtained history, performing a medically appropriate examination, counseling and educating the pat ient/family/caregiver, ordering medications, tests, or procedures, communicating with other HCPs (not separately reported), independently interpreting results (not separately reported), communicatingresults to the patient/family/caregiver, and care coordination (not separately reported). Fred Gonzalez MD. Hematology/Medical Oncology [facility] [phone] CC: documented in this encounterRegency Hospital [facility]10-28-2024 NoteSelect Medical Specialty [facility]10-28-2024 Telephone encounter Note* Telephone Encounter - Abril Gardner RN - 09/07/2024 1:55 PM EDT Pt has orders in [place] from Dr Sanchez to begin BCG treatments on 09/28. These need to be scheduled please. Thanks Abril Gardner, RN [facility]10-28-2024 Nurse Note* Mica Oliva MA - 09/07/2024 1:51 PM EDT Patient would like to start treatment after 09/21/24. Mica Oliva MA [facility]10-28-2024 Nurse Note* Mica Oliva MA - 09/07/2024 1:51 PM EDT Patient would like to start treatment after 09/21/24. Mica Oliva MA documented in this encounterRegency Hospital [facility]10-25-2024 NoteSelect [facility]10-25-2024 History of Present illness Narrative* Noah Harrison MD - 09/04/2024 11:46 PM EDT Radiation Oncology - Follow Up Note PATIENT NAME: Brian Oneal PATIENT Signed by: Noah Harrison MD I spent a total of 20 minutes on the date of the service which included preparing to see the patient, [id number] patient care, and counseling and educating the patient/family/caregiver. This document has been created with the use of voice recognition technology. It may contain inaccuracies, misspellings, inaccurate syntax or inappropriate word context that are a result of the inadequacies/shortcomings of said technology/software. documented in this encounterRegency Hospital [facility]10-25-2024 Telephone encounter Note * Telephone Encounter - Lara Evans LPN - 09/04/2024 4:15 PM EDT Charlette Zuñigaer, FISCAL SERVICES DIRECTOR office states Paersh is not pacemaker dependent. Most recent device check in Care Everywhere was done 08/27/24. Dr. Harrison said Paresh will need a post treatment device check. Nursing will arrange for this once his treatment schedule is available. Lara Evans RN [facility]10-25-2024 History of Present illness Narrative* Noah Harrison MD - 09/04/2024 12:00 AM EDT BRIAN ONEAL [id number] 09/04/2024 [facility] Radiation Oncology Department SIMULATION NOTE DATE OF SIMULATION: 09/04/2024 THERAPIST: Christen Blair MACHINE: Orthocone DIAGNOSIS: Malignant neoplasm of [id number] AREA: PELVIS CONTRAST: IV Oral Consent in [...] / NICO 43:17 PM documented in this encounterRegency Hospital [facility]10-25-2024 NoteSelect [facility] Specialty [facility]10-24-2024 Instructions* Patient Instructions* Leila Heredia RD - 09/03/2024 3:20 PM [...] avocado, peanut butter, etc. documented in this encounterRegency Hospital [facility]10-24-2024 NoteSelect [facility]10-24-2024 History of Present illness Narrative* Leila Heredia RD - 09/03/2024 8:01 AM EDT Oncology Nutrition Therapy Initial Assessment I have communicated my name and active licensure. The patient's identity and physical location wereverified at the time of this visit. Either the patient or their legal client relations representative has been informed of the risks and benefits of -- and alternatives to -- treatment through a remote evaluation andconsents to proceed with the evaluation remotely. RECOMMENDED [...] he consumes 2 meals per day, he doesn'talways eat breakfast. He reports his diet is [...] dropped down 210-212#. States been stable since. Phenix Body Weight: 63.8kg Estimated kilocalorie needs: 9033-5732 kilocalories determined by 30-35 kcal/kg Estimated protein needs: 76-96 grams determined by 1.2-1.5 g/kg Phenix weight Estimated fluid needs: ~6220-9154 milliliters based on 1 mL per kcal (unless otherwise indicated) Nutrition Focused Physical Exam: Unable to perform exam due to patient unable to participate due toencounter type (phone), will re-attempt during reassessment. Potential [...] mouth every 12 hours for 30 days. (Patientnot taking: Reported on 08/17/2024) No current facility-administered medications for this visit. 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 Since last conversation, he also saw Dr. Gonzalez. I again reviewed role of restaging TURBT in minimizing risk of clinical understaging of cT1HG NMIBC(especially in his case in which extensive lamina propria invasion was detected). He refuses this. I have explained risk of understaging and undertreatment by doing this. I reviewed role of induction intravesical treatment in lowering risk of disease recurrence which wereviewed in detail last time as well. I reviewed SE profile and r/b/a. He is on the fence but leaning towards pursuing treatment and we will go ahead and schedule. He wishes to pursue surveillance cystoscopy at [place] and I will reach out to my partners there to schedule. 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 Since last conversation, he also saw Dr. Gonzalez. I again reviewed role of restaging TURBT in minimizing risk of clinical understaging of cT1HG NMIBC(especially in his case in which extensive lamina propria invasion was detected). He refuses this. I have explained risk of understaging and undertreatment by doing this. I reviewed role of induction intravesical treatment in lowering risk of disease recurrence which wereviewed in detail last time as well. I reviewed SE profile and r/b/a. He is on the fence but leaning towards pursuing treatment and we will go ahead and schedule. He wishes to pursue surveillance cystoscopy at [place] and I will reach out to my partners there to schedule. Elliott Sanchez MD documented in this encounterRegency Hospital [facility]10-18-2024 Telephone encounter Note * Telephone Encounter - Shirley Bernabe - 08/28/2024 12:58 PM EDT I made a phone appointment for Renu to follow up with him as his future appointments that are currently scheduled could not accommodate with Renu's schedule in person. Thanks! Shirley Bernabe [facility]10-18-2024 Miscellaneous Notes* Telephone Encounter - Shirley Bernabe - 08/28/2024 12:58 PM EDT I made a phone appointment for Renu to follow up with him as his future appointments that are currently scheduled could not accommodate with Renu's schedule in person. Thanks! Shirley Bernabe * Telephone Encounter - Abril Gardner RN - 08/28/2024 12:31 PM EDT Please schedule pt with Renu in coordination with one of his upcoming appointments please. Thanks Abril Gardner RN * Telephone Encounter - Fred Gonzalez MD - 08/28/2024 11:42 AM EDT I signed. Thanks. * Telephone Encounter - Abril Gardner RN - 08/28/2024 10:54 AM EDT Please sign pending orders for treatment Thanks Abril Gardner RN documented in this encounterRegency Hospital [facility]10-18-2024 Telephone encounter Note * Telephone Encounter - Abril Gardner RN - 08/28/2024 12:31 PM EDT Please schedule pt with Renu in coordination with one of his upcoming appointments please. Thanks Abril G Jackson, RN [facility]10-18-2024 Telephone encounter Note* Telephone Encounter - Fred Gonzalez MD - 08/28/2024 11:42 AM EDT I signed. Thanks. [facility]10-18-2024 Telephone encounter Note* Telephone Encounter - Abril Gardner RN - 08/28/2024 10:54 AM EDT Please sign pending orders for treatment Thanks Abril Gardner, CATRACHITO [facility]10-18-2024 Telephone encounter Note* Telephone Encounter - Miesha [place] - 08/28/2024 8:26 AM EDT Called patient to confirm date and time for chemo education [facility]10-18-2024 Miscellaneous Notes* Telephone Encounter - Miesha [place] - 08/28/2024 8:26 AM EDT Called patient to confirm date and time for chemo education * Telephone Encounter - Miesha [place] - 08/28/2024 6:57 AM EDT Patient scheduled for Chemo Education after Dr. Tenorio appointment on 09/07. I will call patient to confirm * Telephone Encounter - Abril Gardner RN - 08/27/2024 3:21 PM EDT Can you please schedule pt for chemo ed. Thanks Abril Gardner RN * Telephone Encounter - Fred Gonzalez MD - 08/27/2024 1:48 PM EDT I sent Xeloda prescription to pharmacy. We will do xeloda with radiation for rectal cancer. Thanks documented in this encounterRegency Hospital [facility]10-18-2024 Telephone encounter Note * Telephone Encounter - Miesha [place] - 08/28/2024 6:57 AM EDT Patient scheduled for Chemo Education after Dr. Tenorio appointment on 09/07. I will call patient to confirm [facility]10-17-2024 Telephone encounter Note* Telephone Encounter - Abril Gardner RN - 08/27/2024 3:21 PM EDT Can you please schedule pt for chemo ed. Thanks Abril Gardner RN [facility] Work Phone: [phone] Telephone encounter Note* Telephone Encounter - Rebecca Thakur RPh - 08/27/2024 3:10 PM EDT Ambulatory Pharmacy Prior Authorization Note Provider Intervention Required?: No- Pharmacy completed on your behalf. 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 Drug/Drug Interacton: Pantoprazole/Capecitabine - will need addressed For questions relating to this submission, please contact [facility] at [phone] [facility] Work Phone: 1(514) 343-935710-17-2024 Miscellaneous Notes* Telephone Encounter - Rebecca Thakur RPh - 08/27/2024 3:10 PM EDT Ambulatory Pharmacy Prior Authorization Note Provider Intervention Required?: No- Pharmacy completed on your behalf. 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 Drug/Drug Interacton: Pantoprazole/Capecitabine - will need addressed For questions relating to this submission, please contact [facility] at [phone] documented in this encounterRegency Hospital [facility]10-17-2024 Telephone encounter Note * Telephone Encounter - Fred Gonzalez MD - 08/27/2024 1:48 PM EDT I sent Xeloda prescription to pharmacy. We will do xeloda with radiation for rectal cancer. Thanks [facility]10-17-2024 Instructions* Patient Instructions* Fred Gonzalez MD - 08/27/2024 1:31 PM EDT F/u on 09/07/24. Will order xeloda chemo pills. documented in this encounterRegency Hospital [facility]10-17-2024 History of Present illness Narrative* Fred Gonzalez MD - 08/27/2024 1:30 PM EDT PATIENT NAME: Brian Oneal [facility] NO.: [id number] ATTENDING PHYSICIAN: Fred Gonzalez MD DATE OF SERVICE: 08/27/[address] Jeremie Coyne [address] [facility] [address] thank you for referring Brian Oneal for [...] 11, 2024 through June 26, 2024 at [facility]. He was initially admitted to [facility] on June 04, 2024 for planned heart catheterization. This showedsignificant coronary artery disease CABG was recommended. During the hospitalization he had bloody stool since Eliquis was started in April and GI was consulted. EGD on June 05, 2024 in [place] showed erosive gastropathy with hematin throughout the [...] for CABG x 3. Maze procedure RUSS clipand right atrial pacer lead performed Imaging has included: CT scan of the chest with contrast June 05, 2024 and [facility] showingindeterminate subcentimeter pulmonary nodules. No prior imaging for review. Interstitial lung abnormalities noted. Clinical and PFT correlation recommended. CT scan abdomen and pelvis with contrast June 05, 2024 and [facility] by [facility]ology shows a 1.5 cm sessile polypoid bladder mass concerning for neoplasm. The rectal mass seen on MRI is not identifiable. MRI of the pelvis without contrast June 09, 2024 [facility] radiology shows a 2.4cm mass penetrating less than 1 mm beyond [...] mouth every 12 hours for 30 days. (Patientnot taking: Reported on 08/17/2024) No current facility-administered [...] Range Status 07/30/2024 9.1 % Final Abs Bond Date Value Ref Range Status 07/30/2024 0.62 [...] sphincter. 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 Ascending [...] sphincter. 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 - He refused bladder and rectal cancer surgeries. - F/u with cooper here. F/u with . - All his questions answered in detail - Follow-up in [address] Jeremie Coyne [address] [facility] [address] thank you for allowing me to [facility], if there are any questions or concerns please do not hesitate to contact me at the number below. I spent a total of 30 minutes on the date of the service which included preparing to see the patient, [id number] patient care, completing clinical documentation, obtaining and/or reviewing separately obtained history, performing a medically appropriate examination, counseling and educating the pat ient/family/caregiver, ordering medications, tests, or procedures, communicating with other HCPs (not separately reported), independently interpreting results (not separately reported), communicatingresults to the patient/family/caregiver, and care coordination (not separately reported). Fred Gonzalez MD. Hematology/Medical Oncology [facility] [phone] CC: documented in this encounterRegency Hospital [facility]10-17-2024 NoteSelect [facility]10-17-2024 Telephone encounter Note* Telephone Encounter - Miesha [place] - 08/27/2024 1:12 PM EDT Patient scheduled for pre sim and sim 09/04 at 230. Patient was in office seeing Dr. Tenorio, I gave him a printout with dates and times and explained to him. [facility]10-17-2024 Miscellaneous Notes* Telephone Encounter - Miesha [place] - 08/27/2024 1:12 PM EDT Patient scheduled for pre sim and sim 09/04 at 230. Patient was in office seeing Dr. Vennepurredy, I gave him a printout with dates and times and explained to him. * Telephone Encounter - Sophy Eid RN - 08/27/2024 12:22 PM EDT PSS- per nell Adamson to schedule SIM [...] of pet. Thank you Sophy Eid RN * Telephone Encounter - Sophy Eid RN - 08/26/2024 2:38 PM EDT PSS - This is the pt we discussed in tumor board this am. Please schedule as below-- SIM arrival will need to be 1 hour prior to SIM appt time for oral contrast (pre sim consent) Can have Rad Ed also. Also schedule PET JORDAN. Thanks! Sophy Eid RN * Telephone Encounter - Sophy Eid RN - 08/26/2024 2:38 PM EDT Images from the original note were not included. Noah Harrison MD Weyer, Angela, RN; aLra Evans LPN [place] schedule next available sim (rectum, small bowel [...] scheduled? Pt had TURBT and will see Tarunarnold on 08/27. THey talked about him quite a bit in tumorboard, but no decisions were really made. I just dont want him to slip thru the cracks. Thanks!! * Telephone Encounter - Sophy Eid RN - 08/26/2024 2:38 PM EDT ----- Message from Noah Harrison MD sent [...] talked about him quite a bit in tumorboard, but no decisions were really made. I just dont want him to slip thru the cracks. Thanks!! documented in this encounterRegency Hospital [facility]10-17-2024 Telephone encounter Note * Telephone Encounter - Sophy Eid RN - 08/27/2024 12:22 PM EDT PSS- per nell Adamson to schedule SIM [...] of pet. Thank you Sophy Eid RN [facility]10-16-2024 Telephone encounter Note* Telephone Encounter - Sophy Eid RN - 08/26/2024 2:38 PM EDT PSS - This is the pt we discussed in tumor board this am. Please schedule as below-- SIM arrival will need to be 1 hour prior to SIM appt time for oral contrast (pre sim consent) Can have Rad Ed also. Also schedule PET JORDAN. Thanks! Sophy Eid RN [facility]10-16-2024 Telephone encounter Note* Telephone Encounter - Sophy Eid RN - 08/26/2024 2:38 PM EDT Images from the original note [...] talked about him quite a bit in tumorboard, but no decisions were really made. I just dont want him to slip thru the cracks. Thanks!! [facility]10-16-2024 Telephone encounter Note* Telephone Encounter - Sophy Eid RN - 08/26/2024 2:38 PM EDT ----- Message from Noah Harrison MD sent [...] talked about him quite a bit in tumorboard, but no decisions were really made. I just dont want him to slip thru the cracks. Thanks!! [facility]10-15-2024 Telephone encounter Note* Telephone Encounter - Elliott Sanchez MD - 08/25/2024 4:22 PM EDT I contacted Brian Jesus Oneal to review surgical pathology results from TURBT (cT1HG with extensive LPinvasion, MP present and uninvolved). I had an extensive discussion lasting over 30 minutes reviewing pathology results and his myriad of complaints and concerns. First, I reviewed the role of restaging TURBT and minimizing risk of under staging. Given the extensive lamina propria invasion, he is at high risk of muscle invasive disease and I strongly recommendrestaging TURBT. He was at first overall, and then adamantly opposed to pursuing this and much of our conversation was regarding his goals of care and what he would be willing to pursue as far as diagnostic testing and treatment. After reviewing this in detail, he elects against restaging TURBT andaccepts risk of clinical under staging. Second, I reviewed the treatment paradigm for high risk nonmuscle base of bladder cancer as well asmuscle-invasive bladder cancer. I reviewed the role of induction intravesical therapy and treatmentof high-grade NMIBC and the role of surveillance cystoscopy and imaging in monitoring. I reviewed the side effect profile and toxicity of treatment and risk of recurrence which would require repeat resection and further treatment. He again expressed strong aversion to doing this but after lengthy discussion, ultimately agreed to consider pursuing this so long as he could receive treatment in [place] which we can coordinate and pursue surveillance cystoscopy with one of my partners at [facility] which I could coordinate. As it [...] me know if he wants me to discusswith Dr. Decker. He sees Dr. Gonzalez later this week. I will touch base again next week after reviewing with the rest of the team. Elliott Sanchez MD [facility] Work Phone: 1([phone]) 387-357210-15-2024 Miscellaneous Notes* Telephone Encounter - Elliott Sanchez MD - 08/25/2024 4:22 PM EDT I contacted Brian Oneal to review surgical pathology results from TURBT (cT1HG with extensive LPinvasion, MP present and uninvolved). I had an extensive discussion lasting over 30 minutes reviewing pathology results and his myriad of complaints and concerns. First, I reviewed the role of restaging TURBT and minimizing risk of under staging. Given the extensive lamina propria invasion, he is at high risk of muscle invasive disease and I strongly recommendrestaging TURBT. He was at first overall, and then adamantly opposed to pursuing this and much of our conversation was regarding his goals of care and what he would be willing to pursue as far as diagnostic testing and treatment. After reviewing this in detail, he elects against restaging TURBT andaccepts risk of clinical under staging. Second, I reviewed the treatment paradigm for high risk nonmuscle base of bladder cancer as well asmuscle-invasive bladder cancer. I reviewed the role of induction intravesical therapy and treatmentof high-grade NMIBC and the role of surveillance cystoscopy and imaging in monitoring. I reviewed the side effect profile and toxicity of treatment and risk of recurrence which would require repeat resection and further treatment. He again expressed strong aversion to doing this but after lengthy discussion, ultimately agreed to consider pursuing this so long as he could receive treatment in [place] which we can coordinate and pursue surveillance cystoscopy with one of my partners at [facility] which I could coordinate. As it [...] me know if he wants me to discusswith Dr. Decker. He sees Dr. Gonzalez later this week. I will touch base again next week after reviewing with the rest of the team. Elliott Sanchez MD documented in this encounterRegency Hospital [facility]10-10-2024 NoteSelect [facility]10-08-2024 History of Present illness Narrative* Joaquina Dacosta APRN.DIRECTOR OF PHYSICAL EDUCATION - 08/18/2024 8:30 AM EDT [facility] PRE-OP NOTE Brian [...] and Signed: Yes. Pre-op H&P Done by Impact: Yes. PATIENT INSTRUCTIONS FOR SURGERY 1.) DO [...] LABS. Joaquina Dacosta APRN.CNP documented in this encounterRegency Hospital Toledo10-08-2024 NoteSelect [facility]10-07-2024 Telephone encounter Note* Telephone Encounter - Riya Liu PA-C - 08/17/2024 1:[address] Wilder, This is in regards [...] and ok to proceed? Thank you. Sincerely, [facility]10-07-2024 Miscellaneous Notes* Telephone Encounter - Riya Liu PA-C - 08/17/2024 1:[address] Wilder, This is in regards [...] and ok to proceed? Thank you. Sincerely, ALEX Posadaon PACC documented in this encounterRegency Hospital Toledo10-07-2024 History and physical note * Riya Liu PA-C - 08/17/2024 1:00 PM EDT Images from the original note [...] atorvastatin (Lipitor). 4. Coronary artery disease involving [place] coronary artery of [place] heart without angina pectoris Left heart cath 05/2024. No cardiac stents. S/p CABGx3 on 06/18/[address] Masood Wilder. Taking ASA. Patient gets some mild FRANCO when bending over to tie his shoes, but he is doing cardiac rehab twicea week without symptoms. He occasionally gets some [...] mass in May 2024 during colonoscopy in [place]. No previous treatments have been done. See HPI, having above surgery. 12. History of prostate cancer S/p radiation and brachytherapy in 2009. 13. Obesity, BMI 30-39.9 Body mass index is 34.3 kg/m . 14. Anemia, unspecified type CBC from 07/30/24 demonstrated H/H of 11.8/37.6. No current oral supplements. Asymptomatic. Will getCBC updated today. Parker Activity Status Index: METS: [...] Francisco present: no Lip Bite Test: I Microretrognathia/Micronagthia/Recessed Chin: No DENTAL Dental findings: teeth intact. [...] 2024. When he had a colonoscopy in [place] which a rectal mass was found and [...] fevers. Neuro: No history of TIA's, stroke, OCC THERAPIST tumor, impaired sensorium, hemiplegia, paraplegia or quadraplegia. No neurological symptoms or problems. Respiratory: +TEJ, former smoker, mild FRANCO with bending over Negative for Asthma, COPD, Current cough, Home O2, Pneumonia within 6 weeks (date), URI < 2 weeks, Wheezing Cardiovascular: +HTN, HLD, CAD, RVF, Afib s/p CABGx3, MAZE, RUSS clip (06/18/24), pacemaker placed 2021 Negative for Recent [place], Angina, Chest Pain, CHF, DVT/PE GI: See [...] Kidney Disease) Stage 3, Gfr 30-59 Ml/Min ([facility]) Rvf (Right Ventricular Failure) ([facility]) Encounter for Support and Coordination of Transition of Care Hypervolemia Tej (Obstructive Sleep Apnea) Obesity, Class II, Bmi 35-39.9 History of Prostate Cancer Anemia Obesity (Bmi 30-39.9) Covid Immunization Dates Overdue - Covid-19 Vaccine (2023- season) Overdue since 07/12/2024 11/14/2023 Imm Admin: COVID-19 vaccine, age 12+ yr, 2022- season ([employer]) 10/31/2021 Outside Immunization: COVID-19 (MODERNA), MRNA, LNP-S, [...] 394 QTC Calculation (Bazett) 428 Calculated R Sims -9 Calculated T Sims 47 Impression ATRIAL-PACED RHYTHM WITH PROLONGED AV CONDUCTION NONSPECIFIC INTRAVENTRICULAR BLOCK ANTERIOR T WAVE ABNORMALITY ABNORMAL ECG Confirmed by MAK OCHOA MD ([id number]) on 07/21/2024 10:23:25 PM Most recent Echo Recent Results (from the past 26603 hour(s)) ECHO Collection Time: 06/13/24 7:29 AM [...] Brian Oneal DATE: 08/17/2024 TIME: 2:00 PM [facility]-07-[facility] History and physical note* Riya Liu PA-C - 08/17/2024 1:00 PM EDT Images from the original note [...] atorvastatin (Lipitor). 4. Coronary artery disease involving [place] coronary artery of [place] heart without angina pectoris Left heart cath 05/2024. No cardiac stents. S/p CABGx3 on 06/18/[address] Masood Wilder. Taking ASA. Patient gets some mild FRANCO when bending over to tie his shoes, but he is doing cardiac rehab twicea week without symptoms. He occasionally gets some [...] exam. Stable. 6. RVF (right ventricular failure) ([facility]) 7. Pacemaker Pacemaker placed in [...] CMP today. PCP following. 11. Rectal cancer ([facility]) Has been having some rectal bleeding, minimal. Incidental finding of rectal mass in May 2024 during colonoscopy in [place]. No previous treatments have been done. See HPI, having above surgery. 12. History of prostate cancer S/p radiation and brachytherapy in 2009. 13. Obesity, BMI 30-39.9 Body mass index is 34.3 kg/m . 14. Anemia, unspecified type CBC from 07/30/24 demonstrated H/H of 11.8/37.6. No current oral supplements. Asymptomatic. Will getCBC updated today. Parker Activity Status Index: METS: [...] Francisco present: no Lip Bite Test: I Microretrognathia/Micronagthia/Recessed Chin: No DENTAL Dental findings: teeth intact. [...] 2024. When he had a colonoscopy in [place] which a rectal mass was found and [...] fevers. Neuro: No history of TIA's, stroke, OCC THERAPIST tumor, impaired sensorium, hemiplegia, paraplegia or quadraplegia. No neurological symptoms or problems. Respiratory: +TEJ, former smoker, mild FRANCO with bending over Negative for Asthma, COPD, Current cough, Home O2, Pneumonia within 6 weeks (date), URI < 2 weeks, Wheezing Cardiovascular: +HTN, HLD, CAD, RVF, Afib s/p CABGx3, MAZE, RUSS clip (06/18/24), pacemaker placed 2021 Negative for Recent [place], Angina, Chest Pain, CHF, DVT/PE GI: See [...] Kidney Disease) Stage 3, Gfr 30-59 Ml/Min ([facility]) Rvf (Right Ventricular Failure) ([facility]) Encounter for Support and Coordination of Transition of Care Hypervolemia Tej (Obstructive Sleep Apnea) Obesity, Class II, Bmi 35-39.9 History of Prostate Cancer Anemia Obesity (Bmi 30-39.9) Covid Immunization Dates Overdue - Covid-19 Vaccine (2023- season) Overdue since 07/12/2024 11/14/2023 Imm Admin: COVID-19 vaccine, age 12+ yr, season ([employer]) 10/31/2021 Outside Immunization: COVID-19 ([facility]ERNA), MRNA, LNP-S, [...] 394 QTC Calculation (Bazett) 428 Calculated R Sims -9 Calculated T Sims 47 Impression ATRIAL-PACED RHYTHM WITH PROLONGED AV CONDUCTION NONSPECIFIC INTRAVENTRICULAR BLOCK ANTERIOR T WAVE ABNORMALITY ABNORMAL ECG Confirmed by MAK OCHOA MD (57) on 07/21/2024 10:23:25 PM Most recent Echo Recent Results (from the past 78363 hour(s)) ECHO Collection Time: 06/13/24 7:29 AM [...] 08/17/2024 TIME: 2:00 PM documented in this encounterRegency Hospital [facility]edo10-04-2024 Instructions* Patient Instructions* Riya Liu PA-C - 08/14/2024 1:22 PM EDT Images from the original note were not included. [facility] PATIENT PREOPERATIVE INSTRUCTIONS Elliott Sanchez MD has scheduled you for your procedure at this surgery center: [facility] [place] [facility] Scheduling Office: [phone] --[address] [place], [place] [address] [address]. Your surgeon ordered blood work which should be completed today from 08/14/24. Arrival Time for Surgery: - To obtain your arrival time for surgery, call your physician's office the day before your surgery. - If your surgery is scheduled for Saturday, call the Saturday before. Your surgeon s medical office scheduler will tell you what time to call the office. - If you have not reached the departmental medical office scheduler by 5 P.M., call [phone] after 5 P.M. the day before your [...] or other anticoagulants without consulting with your oil pit attendant or prescribing physician. - Stop Vitamin E, [...] Procedures: - YOU MUST HAVE A RESPONSIBLE PEEL OVEN TENDER TAKE YOU HOME. A RETAIL MARKETING SPECIALIST OR PEN MAKER CANNOT BE MADE A RESPONSIBLE PEEL OVEN TENDER. - We recommend that a responsible person stays with you overnight to take care of you. - You cannot stay in a hotel alone after outpatient surgery. You will not be permitted to have yoursurgery, if you do not have someone to take care of you. If you already have an Advance Directive, please fax a copy to [phone] or email to for it to be added to your chart. If you do not have an Advance Directive, you can find the appropriate form and more information at [email or web address]. We recommend that youcomplete the Advance Directive form found on the website and bring it with you the day of your surgery. It can be witnessed and scanned into your chart that day. Riya Liu PA-C documented in this encounterRegency Hospital [facility]edo10-04-2024 History of Present illness Narrative* Miguelina Acevedo RN - 08/14/2024 9:45 AM EDT Radiology Service Progress Note DATE OF SERVICE: [...] e.g. those with acute kidney injury, the eGFRmay not accurately reflect actual GFR. P.O.C.T. RESULTS: POC done: Yes, See Lab Tab August 14, 2024 TREATMENT: N/A IV SITE: Ambulatory: A peripheral IV was started in the Right antecubital site with a Angio cath: 20 gauge. IV SITE APPEARANCE: Clean,Dry and Intact SIGNATURE: Miguelina Acevedo RN PATIENT NAME: Brian Oneal DATE: August 14, 2024 TIME: 11:43 AM * Antonina Alarcon, RT(R) - 08/14/2024 9:45 AM EDT Radiology Service Progress Note PATIENT NAME: Brian Oneal DATE OF SERVICE: August 14, 2024 TIME: 1:09 PM PATIENT IDENTITY VERIFICATION COMPLETED USING TWO (2) IDENTIFIERS: Name and Date of confirmedby patient verbally. FALL SCREENING: Has the patient had 2 falls in the last year or 1 fall with injury or currently using an Ambulatory Assistive Device (Walker, Cane, Wheelchair, Crutches, etc.)? No PATIENT GENDER DATA: Male PATIENT RELEVANT IMPLANT DATA REVIEWED: Not Applicable PATIENT PRESENTS WITH AN IMPLANTABLE OR ATTACHED COUNSELING CENTER MANAGER: No RADIOLOGY DEPARTMENT: CT; Exam(s) Completed: Chest Abdomen Pelvis PERIPHERAL IV DATA: Site assessment: Clean,Dry and Intact, Site disposition Discontinued SIGNED BY: RT Hortensia(R) August 14, 2024 1:09 PM documented in this encounterRegency Hospital [facility]edo10-04-2024 NoteSelect [facility]ty [facility]10-04-2024 NoteSelect [facility] Specialty [facility]09-24-2024 Telephone encounter Note* Telephone Encounter - Christen Cleveland RN - 08/04/2024 5:[address] Earl's consult notes were faxed to Barbara in radiation oncology at [place] as requested. Christen GIRALDO RN Specialty Physician Non Invasive Cardiologist [facility] Work Phone: [phone]) 916-952509-24-2024 Miscellaneous Notes* Telephone Encounter - Christen Cleveland RN - 08/04/2024 5:[address] Earl's consult notes were faxed to Barbara in radiation oncology at [place] as requested. Christen GIRALDO RN Specialty Physician Non Invasive Cardiologist documented in this encounterRegency Hospital [facility]edo09-24-2024 Telephone encounter Note * Telephone Encounter - Gemma Chand RN - 08/04/2024 10:35 AM EDT Called to see if pt scheduled. Sharri working on scheduling. Dr Sanchez is out of the office this week. Typically takes a couple of weeks to schedule. AV: ANTHONY Chand RN [facility]09-24-2024 Miscellaneous Notes* Telephone Encounter - Gemma Chand RN - 08/04/2024 10:35 AM EDT Called to see if pt scheduled. Sharri working on scheduling. Dr Sanchez is out of the office this week. Typically takes a couple of weeks to schedule. AV: ANTHONY Chand RN * Telephone Encounter - Gemma Chand RN - 07/30/2024 3:[address] Sanchez's ASSESSMENT/PLAN: Bladder neoplasm, requiring TURBT. Reviewed r/b/a and post-op expectations including need for catheter. Will review with Clayton Del Rio, and Duong. Ok to continue ASA 81 through surgery. Called and spoke with office, nurse is working on scheduling. Dr Montalvo would like to know date, once pt is scheduled for TURBT. Gemma Chand RN documented in this encounterRegency Hospital [facility]edo09-19-2024 NoteSelect Medical Specialty [facility]09-19-2024 History of Present illness Narrative* Noah Harrison MD - 07/30/2024 11:38 PM EDT Radiation Oncology - Follow Up Note PATIENT NAME: Brian Oneal PATIENT Signed by: Noah Harrison MD I spent a total of 30 minutes on the date of the service which included preparing to see the patient, [id number] patient care, and counseling and educating the patient/family/caregiver. This document has been created with the use of voice recognition technology. It may contain inaccuracies, misspellings, inaccurate syntax or inappropriate word context that are a result of the inadequacies/shortcomings of said technology/software. documented in this encounterRegency Hospital Toledo09-19-2024 Telephone encounter Note * Telephone Encounter - Gemma Chand RN - 07/30/2024 3:[address] Sanchez's ASSESSMENT/PLAN: Bladder neoplasm, requiring TURBT. Reviewed r/b/a and post-op expectations including need for catheter. Will review with Clayton Del Rio, and Duong. Ok to continue ASA 81 through surgery. Called and spoke with office, nurse is working on scheduling. Dr Montalvo would like to know date, once pt is scheduled for TURBT. Gemma Chand RN [facility]09-19-2024 History of Present illness Narrative* Fred Gonzalez MD - 07/30/2024 3:00 PM EDT PATIENT NAME: Brian Oneal CLINIC NO.: [id number] ATTENDING PHYSICIAN: Fred Gonzalez MD DATE OF SERVICE: July 30, [address] Jeremie Coyne [address] [facility] [address] thank you for referring Brian Oneal for [...] 11, 2024 through June 26, 2024 at [facility]. He was initially admitted to [facility] on June 04, 2024 for planned heart catheterization. This showedsignificant coronary artery disease CABG was recommended. During the hospitalization he had bloody stool since Eliquis was started in April and GI was consulted. EGD on June 05, 2024 in [place] showed erosive gastropathy with hematin throughout the [...] for CABG x 3. Maze procedure RUSS clipand right atrial pacer lead performed Imaging has included: CT scan of the chest with contrast June 05, 2024 and reviewed by [facility] showingindeterminate subcentimeter pulmonary nodules. No prior imaging for review. Interstitial lung abnormalities noted. Clinical and PFT correlation recommended. CT scan abdomen and pelvis with contrast June 05, 2024 and reviewed by [facility] shows a 1.5 cm sessile polypoid bladder mass concerning for neoplasm. The rectal mass seen on MRI is not identifiable. MRI of the pelvis without contrast June 09, 2024 reviewed by [facility]ology shows a 2.4cm mass penetrating less than 1 mm beyond [...] Range Status 06/11/2024 9.9 % Final Abs Bond Date Value Ref Range Status 06/11/2024 0.83 [...] sphincter. Rectal mass biopsy showed invasive moderately differentiatedadenocarcinoma , MSI intact IMAGING: MRI rectum (07/24/24)- [...] sphincter. Rectal mass biopsy showed invasive moderately differentiatedadenocarcinoma , MSI intact PLAN: -He was seen by Dr. Coyne at the [facility]. His recommendations were to do a repeat [...] in [address] Jeremie Coyne [address] [facility] [address] thank you for allowing me to participate [facility], if there are any questions or concerns please do not hesitate to contact me at the number below. I spent a total of 60 minutes on the date of the service which included preparing to see the patient, [id number] patient care, completing clinical documentation, obtaining and/or reviewing separately obtained history, performing a medically appropriate examination, counseling and educating the pat ient/family/caregiver, ordering medications, tests, or procedures, communicating with other HCPs (not separately reported), independently interpreting results (not separately reported), communicatingresults to the patient/family/caregiver, and care coordination (not separately reported). Fred Gonzalez MD. Hematology/Medical Oncology [facility] [place] [phone] CC: documented in this encounterRegency Hospital [facility]edo09-19-2024 NoteSelect Medical Specialty [facility]09-19-2024 Instructions* Patient Instructions* Fred Gonzalez MD - 07/30/2024 2:43 PM EDT Ordered labs Ordered scans F/u in 4 weeks. documented in this encounterRegency Hospital Toledo09-19-2024 Nurse Note* Lara Evans LPN - 07/30/2024 1:06 PM EDT Pacemaker/Defibrillator?Yes-Info scanned into [employer] and in Epic Previous Cancer(s)?Prostate Cancer Previous Radiation? EBRT with brachy boost Lupus/Scleroderma? N On body monitoring device?N [facility]-19-2024 Nurse Note* Lara Evans LPN - 07/30/2024 1:06 PM EDT Pacemaker/Defibrillator?Yes-Info scanned into [employer] and in Epic Previous Cancer(s)?Prostate Cancer Previous Radiation? EBRT with brachy boost Lupus/Scleroderma? N On body monitoring device?N documented in this encounterRegency Hospital [facility]edo09-18-2024 NoteSelect [facility]09-18-2024 History of Present illness Narrative* Jeremie Coyne MD - 07/29/2024 1:49 PM EDT I spent a total of 30 minutes on the date of the service which included preparing to see the patient, [id number] patient care, and completing clinical documentation. I have reviewed the progress note obtained and documented by Dr. Morgan and I personally participated in the lamebrt components of care. The following comments revise or confirm relevant lambert components of the note. This visit is a virtual telephone encounter. It required patient-provider interaction for the medical decision making as documented below. I have communicated my name and active licensure. The patient s identity and physical location were verified at the time of this visit. Either the patient or their legal client relations representative has been informed of the risks [...] drive again. He is out of the shelter. Understandably this is a very overwhelming time for the patient. The patient is scheduled to see radiation oncology and medical oncology in [place] so that they are ready to go when we have come up with a definitive plan. We are awaiting scheduling for repeat cystoscopy with TURBT. Jeremie Coyne MD * Lorelei Morgan MD - 07/29/2024 1:30 PM EDT DIAGNOSIS: low rectal carcinoma diagnosed June 05, 2024 BIOMARKERS: Initial CEA -3 Extended LENORA Mutation Status - [] BRAF - [] Microsatelite Status - low probability Mismatch Repair IHC - proficient DPYD - normal metabolizer UGT1A1 - UGT1A1 Intermediate Metabolizer STAGE (AJCC 8): [id number] (MRI without IV Contrast) - Stage IIA [...] to radiation oncology and medical oncology in [place] which he is scheduled to see this week. Lorelei Morgan MD Hematology/Oncology Fellow documented in this encounterRegency Hospital [facility]edo09-18-2024 NoteSelect [facility]09-18-2024 Telephone encounter Note* Telephone Encounter - Bibi Cuevas MA - 07/29/2024 12:02 PM EDT Patient has an appt on 07/30. Would you like labs? [facility]-18-2024 Miscellaneous Notes* Telephone Encounter - Bibi Cuevas MA - 07/29/2024 12:02 PM EDT Patient has an appt on 07/30. Would you like labs? documented in this encounterRegency Hospital [facility]edo09-18-2024 Telephone encounter Note * Telephone Encounter - Rena Murphy RN - 07/29/2024 10:55 AM EDT Images from the original note were not included. [facility] Phone Encounter DATE of SERVICE: 07/29/2024 TIME of SERVICE: 10:56 AM Status: [facility] Service/Provider: Cardiac Surgery Masood Wilder M.D. Reason for call: Incisions Contact information: Brian Oneal [phone] Resolution: Other - treatment at local [place] [facility] office Comments: Faye from [place] [facility] called to say they have a [...] Resolution: 07/29/2024 Time of Resolution 10:56 AM [facility]-18-2024 Miscellaneous Notes* Telephone Encounter - Rena Murphy RN - 07/29/2024 10:55 AM EDT Images from the original note were not included. [facility] Phone Encounter DATE of SERVICE: 07/29/2024 TIME of SERVICE: 10:56 AM Status: Ye Service/Provider: Cardiac Hans Wilder M.D. Reason for call: Incisions Contact information: Brian Oneal [phone] Resolution: Other - treatment at local [place] [facility] office Comments: Faye from [place] [facility] called to say they have a [...] of Resolution 10:56 AM documented in this encounterRegency Hospital [facility]edo09-17-2024 Telephone encounter Note * Telephone Encounter - Brianna Grullon RN - 07/28/2024 3:[address] Coyne's completed consult note faxed as requested. Confirmation receipt received. Brianna Grullon RN, BSN Specialty Physician Non Invasive Cardiologist July 28, 2024 [facility]-17-2024 Miscellaneous Notes* Telephone Encounter - Brianna Grullon RN - 07/28/2024 3:[address] Coyne's completed consult note faxed as requested. Confirmation receipt received. Brianna Grullon RN, BSN Specialty Physician Non Invasive Cardiologist July 28, 2024 * Telephone Encounter - Ha Wasserman - 07/23/2024 9:12 AM EDT CATRACHITO Jimenez from [facility] is requesting office notes from yesterday's Jul [address] Coyne and Dr. Earl. The fax number is [phone]. Patient has been identified by name and birthdate. Duration of symptoms: N/A Requesting response back: She can be reached at [phone] if needed. [phone] (home) Ha Henley July 23, 2024 documented in this encounterRegency Hospital [facility]edo09-12-2024 Telephone encounter Note * Telephone Encounter - Ha Wasserman - 07/23/2024 9:12 AM EDT CATRACHITO Jimenez from [facility] is requesting office notes from yesterday's Jul [address] Coyne and Dr. Earl. The fax number is [phone]. Patient has been identified by name and birthdate. Duration of symptoms: N/A Requesting response back: She can be reached at [phone] if needed. [phone] (home) Ha Olmedo Lory July 23, 2024 [facility]-11-2024 Nurse Note* Jihan Rahman RN - 07/22/2024 3:03 PM EDT Reviewed and confirmed with patient that there were no changes in the the nursing assessment and vitals that were completed on 07/22/2024 during previous provider appointment. Jihan Rahman RN [facility]-11-2024 Nurse Note* Jihan Rahman RN - 07/22/2024 3:03 PM EDT Reviewed and confirmed with patient that there were no changes in the the nursing assessment and vitals that were completed on 07/22/2024 during previous provider appointment. Jihan Rahman RN documented in this encounterRegency Hospital [facility]edo09-11-2024 History of Present illness Narrative* Lorelei Morgan MD - 07/22/2024 2:30 PM EDT DIAGNOSIS: Rectal adenocarcinoma STAGE (AJCC 8): [id number]: stage II BIOMARKERS: Initial CEA: 3 MMR: [...] be from ischemic heart disease with LHC showingtriple vessel disease. He was started on eliquis [...] on Saturday regarding further treatment. Patient from [facility] so wants to follow up closer to home. We will place referrals to [place] 2. Bladder Mass - following with urology - underwent cystoscopy 07/22 - awaiting cytology Lorelei Morgan MD Hematology/Oncology Fellow * Jeremie Coyne MD - 07/22/2024 2:30 PM EDT Consultation requested by MICHA Oconnor for an opinion regarding cancer. My final recommendations will be communicated back to the requesting physician by way of shared Medical record or letter to requesting physician via US mail. I spent a total of 60 minutes on the date of the service which included preparing to see the patient and [id number] patient care. I have reviewed the progress [...] [] UGT1A1 - [] STAGE (AJCC 8): [id number] (MRI without IV Contrast) - Stage IIA [...] 11, 2024 through June 26, 2024 at [facility]. He was initially admitted to [facility] on June 04, 2024 for planned heart catheterization. This showedsignificant coronary artery disease CABG was recommended. During the hospitalization he had bloody stool since Eliquis was started in April and GI was consulted. EGD on June 05, 2024 in [place] showed erosive gastropathy with hematin throughout the [...] was performed. The patient was transferred to [facility] for further evaluation. Echocardiogram showed ejection fraction of 55%. He was started on heparin and aspirin. The patient was taken to the operating room on June 18, 2024 for CABG x 3. Maze procedure RUSS clipand right atrial pacer lead performed Imaging has included: CT scan of the chest with contrast June 05, 2024 and reviewed by [facility] radiology showingindeterminate subcentimeter pulmonary nodules. No prior imaging for review. Interstitial lung abnormalities noted. Clinical and PFT correlation recommended. CT scan abdomen and pelvis with contrast June 05, 2024 and reviewed by [facility] radiology shows a 1.5 cm sessile polypoid bladder mass concerning for neoplasm. The rectal mass seen on MRI is not identifiable. MRI of the pelvis without contrast June 09, 2024 reviewed by [facility] radiology shows a 2.4cm mass penetrating less than 1 mm beyond [...] prior to chemotherapy and radiation to the rectaltumor. I have discussed the case with radiation oncology. It does appear that he is a candidate for further radiation despite his previous radiation to the prostate. The patient would like to receive his care closer to home. I will refer him to radiation oncology and medical oncology in [place]. Jeremie Coyne MD documented in this encounterRegency Hospital [facility]09-11-2024 Note[facility]-11-2024 Note[facility]09-11-2024 NoteSelect [facility]09-11-2024 History of Present illness Narrative* Sangeetha Earl MD - 07/22/2024 1:58 PM EDT Radiation Oncology - New Patient/Consult Note PATIENT NAME: Brian Oneal PATIENT REQUESTING PROVIDER: Dr. Micha Avina. DIAGNOSIS: 74 y/o M with h/o prostate cancer previously treated with pelvic RT and LDR brachytherapy seed implant in [place] (2009), now with [id number] invasive adenocarcinoma of the low rectum with [...] Per his report, he was treated at [facility] in [place] with Dr. Piedra using a combination of LDR brachytherapy seed implant and pelvic XRT (details not in Mosaiq for review). He has done well from a prostate cancer standpoint, but more recently [facility] for a planned cardiac catheterization on 06/04/2024. At that time, he was found to have anemia and underwent EGD and colonoscopy on 06/05/2024. EGD was negative, but colonoscopy showed a mass in the rectum that was bx-proven invasive adenocarcinoma. 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 Pathology (06/05/2024): FINAL DIAGNOSIS [facility], [place], [place]; [id number] (06/05/2024) 1. Stomach, biopsy (A): - Gastric oxyntic and antral mucosa with mild reactive epithelial changes and focal mild chronic inflammation. - No definitive morphologic evidence of Helicobacter pylori organisms. 2. Colon, transverse, polyp, biopsy (B): - Hyperplastic polyp. 3. Rectum, mass, biopsy (C): - Invasive moderately differentiated adenocarcinoma. MRI Pelvis - [facility] (06/09/2024): IMPRESSION: Suboptimal imaging parameters. 2.4 [...] by mouth once daily. Rx called to [facility] cholecalciferol (VITAMIN D) 1,000 unit tab tablet [...] Former Types: Cigarettes Smokeless tobacco: Never Residence: [place], [place] Occupation: Retired COMPLETE REVIEW OF SYSTEMS: [...] y/o M with h/o prostate cancer previously treatedwith pelvic RT and LDR brachytherapy seed implant in [place] (2009), now with [id number] invasive adenocarcinoma of the low rectum with threatened MRF and invasion/abutment of the anal sphincter. Alsorecently underwent CABG x 3v and with bladder [...] local recurrence. I also explained that given theextent of tumor involvement, if she is deemed [...] today. He would like to receive any chemoand radiation in [place]. At the end of our visit, she was given my contact information and encouraged to call with any questions or concerns that may arise. Signed by: Sangeetha Earl MD cc: Elliot Ladan Decker [address] [place] [address] Micha Avina [address] [facility] [address] Jeremie Coyne [facility] Harrison [facility] documented in this encounterRegency Hospital [facility]edo09-11-2024 History of Present illness Narrative* Micha Avina MD - 07/22/2024 1:30 PM EDT COLORECTAL SURGERY New Patient Visit July 22, 2024 Chief Complaint: Rectal Cancer (Invasive moderately differentiated adenocarcinoma) History of Present Illness: Brian Oneal is a 74 year old year old male being seen following hospital discharge regarding rectal cancer. Pathology shows invasive moderately differentiated adenocarcinoma, Stage:T3a N0, thoughtto be T3b with threatened MRF margin on review and invasion/abutment of anal sphincter. Patient initially presented to [facility] for a planned heart catheterization on 06/04/24. PMH includes sick sinus syndrome s/p pacemaker, A- fib, HTN, TEJ. The patient presents today after [...] is improving. He denies family history of CRCor other malignancy. Office Visit dated 07/03/2024 completed by Tamiko Mcduffie APRN.DIRECTOR OF PHYSICAL EDUCATION (Cardiovascular Surgery): IMPRESSION & PLAN: Surgeon: Masood Wilder M.D S/P on 06/18/2024 CABGx3 (WREN-LAD, SVG-OM1, SVG- PDA), MAZE, LAAC, Rightatrial Pacer lead CXR July 03, 2024 Image reviewed Final report Lungs and pleura: Interval improvement in left lower lung opacities. Improving pulmonary edema. Small bilateral pleural effusions are present with adjacent atelectasis, more on the left. No pneumothorax. EKG July 03, 2024 ATRIAL-PACED RHYTHM WITH PROLONGED AV CONDUCTION NONSPECIFIC INTRAVENTRICULAR BLOCK Vent. rate 71 BPM AL interval 212 ms QRS duration 126 ms [...] site healing with blisters noted along the norris adjacent to the incision, also blister noted on right foot - due to FVO and 2+ right LE edema. Vaseline guaze and kerlex wrap to right leg and right foot wound care daily to right leg at [facility] - pt should have HHC once d/c from [facility] pt to start bactrim and order sent to [facility] in [place], [place] pt advised that he needs to return to see me for assessment of right svg wound Summary: Follow up with PCP next week Follow up with oil pit attendant in 4-6 weeks. Call CTS OPD with [...] year old male who initially presented to [facility] for a planned heart catheterization on [...] was made to transfer the patient to [facility] for further management. He has received prior [...] mass demonstrating adenocarcinoma. He was transferred to [facility] for further evaluation. He was initially admitted to the colorectal service. Colorectal determined stage II rectal CA with abutment of the mesorectal fascia, no evidence of metastatic disease. CORS recommended outpatient work up. Cardiothoracic Surgery was consulted for known MVD. Cardiology was consulted and recommended echocardiogram that showed an ejection fraction of 55%. He was started on a Heparin infusion. He wastransferred to the FISCAL SERVICES DIRECTOR/PA service on 06/15. He was started on aspirin. Airway Difficulty: Grade I - George Pacing Wires: X4 Ventricular wires (pull) Surgeries and Major Events: 06/18/2024: CABGx3 (WREN-LAD, SVG-OM1, SVG-PDA), MAZE, RUSS Clip (35), Right atrial Pacer lead A/P of Major Active Problems: Transferred to [facility] on 06/21/24 Neuro: Post op pain: S/p pecs block 06/20/2024. States pain is controled. Continue PRN Tylenol/Oxycodone/Ultram. Cardiac: Sick sinus syndrome s/p pacemaker: intra-op issues with intrinsic PPM, right atrial lead placed andconnected. Device check 06/19: AP, ADMITTING CLERK. Continue DDD pacing @ 100bpm. No RA [...] within a month. Will defer anticoagulation for afibto primary team. Ok from our stand point [...] proceed w/ discharge to SNF. Notified and reviewedpost op findings w/ CORS fat purification worker. Hematology: Coagulopathy: s/p OR. Required 2 platelet. Resolved, plts normalized. Acute blood loss anemia: s/p OR. Transfused 1 unit of PRBC's on 06/23. Current H&H 9.0/28.7 Endo: Stress Hyperglycemia: No DM history. Perioperative insulin resistance and exacerbation of hyperglycemia. SSI for glycemic control. DC'd accu checks Discharge: 74 yr old male who lives in [place], [place] (near [place]). PT recs SNF. CM following, bed and transport were arranged, ok to transfer today per CTS. Prefers to follow up locally d/t distance (PCP 1 week after discharge from SNF, Felt Washing Machine Tender in 4 weeks). Will f/u at for [...] scheduled with Colorectal Surgery Dr. Avina at [facility] on 07/22/2024. - Scans were completed at [...] pulmonary nodules. Comparison with prior studies if available,otherwise follow-up CT as per clinical protocol is [...] abdomen or pelvis. COLONOSCOPY dated 06/05/2024 @ [facility] (Care Everywhere): Impression: - Scattered sessile [...] Biopsied. - External hemorrhoids. Pathology (Overread): [facility], [place], [place]; [id number] (06/05/2024) 1. Stomach, biopsy (A): - Gastric [...] closed Resting tone: NORMAL Squeeze tone: NORMAL Grain Oilseed Or Pasture Grower present: Yes, Yoly Griffiths Flexible sigmoidoscopy: Procedure: [...] to be doing well from a cardiac surgerystandpoint. Per discussion with Dr. Sanchez, he will need cystoscopy for possible transurethral resection of bladder lesion. This will likely need to be done prior starting therapy for his rectal ca,but will discuss with the team. He does need a repeat colonoscopy for clearance of his colon based on the colonoscopy report from [place]. We would also like to repeat his rectal MRI due to suboptimalstudy per the tumor board review. We discussed the treatment and care of patients with rectal cancer including staging, treatment, the role of surgery, and potential changes to quality of life. The patient reports a strong preference for avoidance of surgery and avoidance of colostomy. Based on ourreview here, I would not recommend restorative protectomy [...] of treatment plan: high documented in this encounterRegency Hospital [facility]09-11-2024 NoteSelect [facility]09-11-2024 Nurse Note* Kelly Hartman LPN - 07/22/2024 11:14 AM EDT Additional intake questions: Has the patient had fever, nausea, vomiting, diarrhea, constipation, fatigue for > 1 week? Yes, fatigue and Provider Notified Does the patient have a decreased appetite? No Does patient want to see a Real Estate Acquisition Analyst? No (yes to any of above refer patient to schedulers for dietitian appointment) ) Does patient have any new or increased numbness or tingling of extremities? Yes, Left hand Is patient interested in fertility information? No Does patient need any prescription refills? No Does patient have an advanced directive in place? Yes, copies are in [employer] [facility]09-11-2024 Nurse Note* Kelly Hartman LPN - 07/22/2024 11:14 AM EDT Additional intake questions: Has the patient had fever, nausea, vomiting, diarrhea, constipation, fatigue for > 1 week? Yes, fatigue and Provider Notified Does the patient have a decreased appetite? No Does patient want to see a Real Estate Acquisition Analyst? No (yes to any of above refer patient to schedulers for dietitian appointment) ) Does patient have any new or increased numbness or tingling of extremities? Yes, Left hand Is patient interested in fertility information? No Does patient need any prescription refills? No Does patient have an advanced directive in place? Yes, copies are in [employer] documented in this encounterRegency Hospital [facility]09-11-2024 History of Present illness Narrative* Elliott Sanchez MD - 07/22/2024 10:00 AM EDT Images from the original note were not included. [place] [id number] AMBULATORY PROCEDURE NOTE NAME: Brian Oneal AGE: [id number] year old CLINIC #: [id number] DATE: July 22, 2024 SURGEON: Elliott Sanchez [...] the presence of Dr. Sanchez Electronically signed, Trini Tapiaibe STAFF PHYSICIAN NOTE OF PERSONAL INVOLVEMENT IN CARE The above noted history, physical, assessment and plan were reviewed with the provider and criticalportions of the H&P were confirmed. I evaluated and examined the patient and agree with the plan above and provided direct supervision of the above provider during this patient's care. Elliott Sanchez MD * Jessica Kovacs RN - 07/22/2024 9:43 AM EDT UNIVERSAL PROTOCOL / SAFETY CHECKLIST Procedure to [...] applicable. Jessica Kovacs RN documented in this encounterRegency Hospital [facility]edo09-11-2024 NoteSelect [facility]09-11-2024 Nurse Note* Jessica Kovacs RN - 07/22/2024 9:43 AM EDT Actual procedure/procedure scheduled: Yes Performing provider/scheduled provider: Yes Patient was roomed in: Q9- 10 Grain Oilseed Or Pasture Grower offered:Patient declines Patient arrived in the room [...] COMPLETED Anesthetic Given:10 cc 2% Lidocaine jelly Jesscia Kovacs RN UNIVERSAL PROTOCOL / SAFETY CHECKLIST [...] Education Session: None Instruction Provided To: Patient Methods Time Analyst Present: not applicable Discipline: Nursing Learning Topic: SURVIVAL SKILLS: Symptom Management Patient Evaluation: Verbalizes understanding: Yes Supplemental Material Given: Written Material Instructed By Jessica Kovacs RN In Department Urology . [facility]09-11-2024 NoteSelect [facility]09-11-2024 Nurse Note* Jessica Kovacs RN - 07/22/2024 9:43 AM EDT Actual procedure/procedure scheduled: Yes Performing provider/scheduled provider: Yes Patient was roomed in: Q9- 10 Grain Oilseed Or Pasture Grower offered:Patient declines Patient arrived in the room [...] 0 on a 0-10 pain scale. Jessica Kovacs, SUBSYSTEMS ENGINEER PATIENT EDUCATION THE FOLLOWING WAS EVALUATED Motivation To Learn: Eager Interested Family/Significant Other Support: None - Unavailable/disinterested Cognitive Ability: Alert/Oriented Method of Instruction: Written instruction/Handouts Verbal instruction The Following Influencing Factors Were Barriers To This Education Session: None The Following Physical Limitations Were Barriers To This Education Session: None Instruction Provided To: Patient Methods Time Analyst Present: not applicable Discipline: Nursing Learning Topic: SURVIVAL SKILLS: Symptom Management Patient Evaluation: Verbalizes understanding: Yes Supplemental Material Given: Written Material Instructed By Jessica Kovacs RN In Department Urology . documented in this encounterRegency Hospital [facility]edo08-23-2024 History of Present illness Narrative* Tamiko Mcduffie, RADHA.DIRECTOR OF PHYSICAL EDUCATION - 07/03/2024 3:00 PM EDT Images from the original note were not included. [facility] [place] [facility] Department of Cardiovascular Medicine DEPARTMENT OF CARDIAC SURGERY OUTPATIENT VISIT DATE July 03, 2024 OUTPATIENT VISIT TYPE POSTOPERATIVE Brian Oneal is a 74 year old male who presents who is here for post operative follow up HPI: Surgeon: Masood Wilder M.D S/P on 06/18/2024 CABGx3 (WREN-LAD, SVG-OM1, SVG-PDA), MAZE, LAAC, Right atrial Pacer lead Discharged on 06/26/24 to [facility] view [facility] [phone] No past medical history on file. No [...] Post Operative Course: Pain scale :Yes LOCATION: [facility] PAIN SCALE: 2 on a scale of [...] along svg site and right foot SV [place] sites: healing, clean, dry and intact, and mild surrounding redness Procedures: N/A IMPRESSION & PLAN: Surgeon: Masood Wilder M.D S/P on 06/18/2024 CABGx3 (WREN-LAD, SVG-OM1, SVG- PDA), MAZE, LAAC, Rightatrial Pacer lead CXR July 03, 2024 Image reviewed Final report Lungs and pleura: Interval improvement in left lower lung opacities. Improving pulmonary edema. Small bilateral pleural effusions are present with adjacent atelectasis, more on the left. No pneumothorax. EKG July 03, 2024 ATRIAL-PACED RHYTHM WITH PROLONGED AV CONDUCTION NONSPECIFIC INTRAVENTRICULAR BLOCK Vent. rate 71 BPM AL interval 212 ms QRS duration 126 ms [...] site healing with blisters noted along the norris adjacent to the incision, also blister noted on right foot - due to FVO and 2+ right LE edema. Vaseline guaze and kerlex wrap to right leg and right foot wound care daily to right leg at [facility] - pt should have HHC once d/c from [facility] pt to start bactrim and order sent to [facility] in [place], [place] pt advised that he needs to return to see me for assessment of right svg wound Summary: Follow up with PCP next week Follow up with oil pit attendant in 4-6 weeks. Call CTS OPD with [...] prophylaxis reviewed Discussed wound care Tamiko Mcduffie APRN.DIRECTOR OF PHYSICAL EDUCATION documented in this encounterRegency Hospital [facility]08-23-2024 NoteSelect [facility]08-23-2024 History of Present illness Narrative* Gloria Vazquez, RT(R) - 07/03/2024 2:15 PM EDT Radiology Service Progress Note PATIENT NAME: Brian Oneal DATE OF SERVICE: July 03, 2024 TIME: 2:19 PM PATIENT IDENTITY VERIFICATION COMPLETED USING TWO (2) IDENTIFIERS: Name and Date of confirmedby patient verbally. FALL SCREENING: Has the patient had 2 falls in the last year or 1 fall with injury or currently using an Ambulatory Assistive Device (Walker, Cane, Wheelchair, Crutches, etc.)? No PATIENT GENDER DATA: Male PATIENT RELEVANT IMPLANT DATA REVIEWED: Not Applicable PATIENT PRESENTS WITH AN IMPLANTABLE OR ATTACHED COUNSELING CENTER MANAGER: No RADIOLOGY DEPARTMENT: General X-ray: Exam(s) Completed: Chest X-Ray PERIPHERAL IV DATA: Not applicable SIGNED BY: RT Chaz(R) July 03, 2024 2:19 PM documented in this encounterRegency Hospital [facility]edo08-23-2024 NoteSelect [facility]08-16-2024 NoteSelect [facility]08-16-2024 NoteSelect [facility]08-15-2024 NoteSelect [facility]08-15-2024 Note [facility]08-14-2024 History of Present illness Narrative* Micha Avina MD - 06/24/2024 12:00 PM EDT Rectal Cancer Tumor Board Initial Presentation Date of conference: 06/24/2024. Date of Diagnosis: 06/05/2024. Pathology: Component FINAL DIAGNOSIS [facility], [place], [place]; [id number] (06/05/2024) 1. Stomach, biopsy (A): - Gastric oxyntic and antral mucosa with mild reactive epithelial changes and focal mild chronic inflammation. - No definitive morphologic evidence of Helicobacter pylori organisms. 2. Colon, transverse, polyp, biopsy (B): - Hyperplastic polyp. 3. Rectum, mass, biopsy (C): - Invasive moderately differentiated adenocarcinoma. Performing Lab Diagnostic interpretation performed at [facility], [address] [place] [address] CLIA# [id number] Imaging Reviewed: MRI of pelvis: 06/09/2024. MRI [...] bladder. Recommended repeat MRI of the pelvis forimproved image quality prior to starting therapy. Given [...] team and the patient after discussing the benefits,risks and alternatives to the various treatment options. documented in this encounterRegency Hospital Toledo08-14-2024 NoteSelect [facility]08-14-2024 NoteSelect [facility]08-13-2024 NoteSelect [facility]08-13-2024 NoteSelect [facility]08-13-2024 Note [facility]08-12-2024 NoteSelect [facility]08-11-2024 NoteSelect [facility]08-10-2024 NoteSelect [facility] 06-20-2024 NoteSelect [facility]08-10-2024 NoteSelect [facility]08-09-2024 NoteSelect [facility]08-09-2024 NoteSelect [facility]08-08-2024 NoteSelect [facility]08-08-2024 Note [facility]-08-2024 NoteSelect [facility]08-08-2024 NoteSelect [facility]08-08-2024 NoteSelect [facility] 06-17-2024 NoteSelect [facility]08-06-2024 NoteSelect [facility]08-05-2024 NoteSelect [facility]08-05-2024 NoteSelect [facility]08-04-2024 NoteSelect [facility]08-04-2024 Note [facility]-03-2024 NoteSelect [facility]08-02-2024 NoteSelect [facility]05-13-2022 NoteEXAM: XR CHEST 2 V HISTORY: Permanent cardiac [...] Electronically authenticated by: ALONSO MASON Date: 2022-03-23 12:58[facility] Diagnosis Encounter for support and coordination of transition of care- Primary Rectal cancer (HCC) Malignant neoplasm of rectum Primary hypertension Unspecified essential hypertension Coronary artery disease involving [place] coronary artery of [place] heart without angina pectoris Pacemaker Cardiac pacemaker in situ Atrial fibrillation, unspecified type (HCC) Other hyperlipidemia On mechanically assisted ventilation (HCC) Postoperative pain Other acute postoperative pain Rectal cancer (HCC) Malignant neoplasm of rectum Coronary artery disease Coronary atherosclerosis of unspecified type of vessel, [place] or graft Atrial fibrillation, chronic (HCC) Atrial [...] pain, unspecified type documented in this encounter [facility] note* Diagnosis Encounter for support and coordination of transition of care- Primary Rectal cancer (HCC) Malignant neoplasm of rectum Primary hypertension Unspecified essential hypertension Coronary artery disease involving [place] coronary artery of [place] heart without angina pectoris Pacemaker Cardiac pacemaker in situ Atrial fibrillation, unspecified type (HCC) Other hyperlipidemia On mechanically assisted ventilation (HCC) Postoperative pain Other acute postoperative pain Rectal cancer (HCC) Malignant neoplasm of rectum Coronary artery disease Coronary atherosclerosis of unspecified type of vessel, [place] or graft Atrial fibrillation, chronic (HCC) Atrial [...] following unspecified surgery documented in this encounter [facility] note* Diagnosis Encounter for support and coordination of transition of care- Primary Rectal cancer (HCC) Malignant neoplasm of rectum Primary hypertension Unspecified essential hypertension Coronary artery disease involving [place] coronary artery of [place] heart without angina pectoris Pacemaker Cardiac pacemaker in situ Atrial fibrillation, unspecified type (HCC) Other hyperlipidemia On mechanically assisted ventilation (HCC) Postoperative pain Other acute postoperative pain Rectal cancer (HCC) Malignant neoplasm of rectum Coronary artery disease Coronary atherosclerosis of unspecified type of vessel, [place] or graft Atrial fibrillation, chronic (HCC) Atrial [...] 3b CKD (HCC) documented in this encounter [facility] note* Diagnosis Encounter for support and coordination of transition of care- Primary Rectal cancer (HCC) Malignant neoplasm of rectum Primary hypertension Unspecified essential hypertension Coronary artery disease involving [place] coronary artery of [place] heart without angina pectoris Pacemaker Cardiac pacemaker in situ Atrial fibrillation, unspecified type (HCC) Other hyperlipidemia On mechanically assisted ventilation (HCC) Postoperative pain Other acute postoperative pain Rectal cancer (HCC) Malignant neoplasm of rectum Coronary artery disease Coronary atherosclerosis of unspecified type of vessel, [place] or graft Atrial fibrillation, chronic (HCC) Atrial [...] active surveillance (HCC) documented in this encounter [facility] note* Diagnosis Encounter for support and coordination of transition of care- Primary Rectal cancer (HCC) Malignant neoplasm of rectum Primary hypertension Unspecified essential hypertension Coronary artery disease involving [place] coronary artery of [place] heart without angina pectoris Pacemaker Cardiac pacemaker in situ Atrial fibrillation, unspecified type (HCC) Other hyperlipidemia On mechanically assisted ventilation (HCC) Postoperative pain Other acute postoperative pain Rectal cancer (HCC) Malignant neoplasm of rectum Coronary artery disease Coronary atherosclerosis of unspecified type of vessel, [place] or graft Atrial fibrillation, chronic (HCC) Atrial [...] disorders of bladder documented in this encounter [facility] note* Diagnosis Encounter for support and coordination of transition of care- Primary Rectal cancer (HCC) Malignant neoplasm of rectum Primary hypertension Unspecified essential hypertension Coronary artery disease involving [place] coronary artery of [place] heart without angina pectoris Pacemaker Cardiac pacemaker in situ Atrial fibrillation, unspecified type (HCC) Other hyperlipidemia On mechanically assisted ventilation (HCC) Postoperative pain Other acute postoperative pain Rectal cancer (HCC) Malignant neoplasm of rectum Coronary artery disease Coronary atherosclerosis of unspecified type of vessel, [place] or graft Atrial fibrillation, chronic (HCC) Atrial [...] nature of bladder [facility] Diagnosis Encounter for support and coordination of transition of care- Primary Rectal cancer (HCC) Malignant neoplasm of rectum Primary hypertension Unspecified essential hypertension Coronary artery disease involving [place] coronary artery of [place] heart without angina pectoris Pacemaker Cardiac pacemaker in situ Atrial fibrillation, unspecified type (HCC) Other hyperlipidemia On mechanically assisted ventilation (HCC) Postoperative pain Other acute postoperative pain Rectal cancer (HCC) Malignant neoplasm of rectum Coronary artery disease Coronary atherosclerosis of unspecified type of vessel, [place] or graft Atrial fibrillation, chronic (HCC) Atrial [...] neoplasm of rectum documented in this encounter [facility] note* Diagnosis Encounter for support and coordination of transition of care- Primary Rectal cancer (HCC) Malignant neoplasm of rectum Primary hypertension Unspecified essential hypertension Coronary artery disease involving [place] coronary artery of [place] heart without angina pectoris Pacemaker Cardiac pacemaker in situ Atrial fibrillation, unspecified type (HCC) Other hyperlipidemia On mechanically assisted ventilation (HCC) Postoperative pain Other acute postoperative pain Rectal cancer (HCC) Malignant neoplasm of rectum Coronary artery disease Coronary atherosclerosis of unspecified type of vessel, [place] or graft Atrial fibrillation, chronic (HCC) Atrial [...] neoplasm of prostate documented in this encounter [facility] note* Diagnosis Encounter for support and coordination of transition of care- Primary Rectal cancer (HCC) Malignant neoplasm of rectum Primary hypertension Unspecified essential hypertension Coronary artery disease involving [place] coronary artery of [place] heart without angina pectoris Pacemaker Cardiac pacemaker in situ Atrial fibrillation, unspecified type (HCC) Other hyperlipidemia On mechanically assisted ventilation (HCC) Postoperative pain Other acute postoperative pain Rectal cancer (HCC) Malignant neoplasm of rectum Coronary artery disease Coronary atherosclerosis of unspecified type of vessel, [place] or graft Atrial fibrillation, chronic (HCC) Atrial [...] neoplasm of rectum [facility] Diagnosis Encounter for support and coordination of transition of care- Primary Rectal cancer (HCC) Malignant neoplasm of rectum Primary hypertension Unspecified essential hypertension Coronary artery disease involving [place] coronary artery of [place] heart without angina pectoris Pacemaker Cardiac pacemaker in situ Atrial fibrillation, unspecified type (HCC) Other hyperlipidemia On mechanically assisted ventilation (HCC) Postoperative pain Other acute postoperative pain Rectal cancer (HCC) Malignant neoplasm of rectum Coronary artery disease Coronary atherosclerosis of unspecified type of vessel, [place] or graft Atrial fibrillation, chronic (HCC) Atrial [...] neoplasm of rectum documented in this encounter [facility] note* Diagnosis Encounter for support and coordination of transition of care- Primary Rectal cancer (HCC) Malignant neoplasm of rectum Primary hypertension Unspecified essential hypertension Coronary artery disease involving [place] coronary artery of [place] heart without angina pectoris Pacemaker Cardiac pacemaker in situ Atrial fibrillation, unspecified type (HCC) Other hyperlipidemia On mechanically assisted ventilation (HCC) Postoperative pain Other acute postoperative pain Rectal cancer (HCC) Malignant neoplasm of rectum Coronary artery disease Coronary atherosclerosis of unspecified type of vessel, [place] or graft Atrial fibrillation, chronic (HCC) Atrial [...] neoplasm of rectum documented in this encounter [facility] note* Diagnosis Encounter for support and coordination of transition of care- Primary Rectal cancer (HCC) Malignant neoplasm of rectum Primary hypertension Unspecified essential hypertension Coronary artery disease involving [place] coronary artery of [place] heart without angina pectoris Pacemaker Cardiac pacemaker in situ Atrial fibrillation, unspecified type (HCC) Other hyperlipidemia On mechanically assisted ventilation (HCC) Postoperative pain Other acute postoperative pain Rectal cancer (HCC) Malignant neoplasm of rectum Coronary artery disease Coronary atherosclerosis of unspecified type of vessel, [place] or graft Atrial fibrillation, chronic (HCC) Atrial [...] disorders of bladder documented in this encounter [facility] note* Diagnosis Encounter for support and coordination of transition of care- Primary Rectal cancer (HCC) Malignant neoplasm of rectum Primary hypertension Unspecified essential hypertension Coronary artery disease involving [place] coronary artery of [place] heart without angina pectoris Pacemaker Cardiac pacemaker in situ Atrial fibrillation, unspecified type (HCC) Other hyperlipidemia On mechanically assisted ventilation (HCC) Postoperative pain Other acute postoperative pain Rectal cancer (HCC) Malignant neoplasm of rectum Coronary artery disease Coronary atherosclerosis of unspecified type of vessel, [place] or graft Atrial fibrillation, chronic (HCC) Atrial [...] hypertension Mixed hyperlipidemia Coronary artery disease involving [place] coronary artery of [place] heart without angina pectoris Atrial fibrillation, chronic [...] disorders of bladder [facility] Diagnosis Encounter for support and coordination of transition of care- Primary Rectal cancer (HCC) Malignant neoplasm of rectum Primary hypertension Unspecified essential hypertension Coronary artery disease involving [place] coronary artery of [place] heart without angina pectoris Pacemaker Cardiac pacemaker in situ Atrial fibrillation, unspecified type (HCC) Other hyperlipidemia On mechanically assisted ventilation (HCC) Postoperative pain Other acute postoperative pain Rectal cancer (HCC) Malignant neoplasm of rectum Coronary artery disease Coronary atherosclerosis of unspecified type of vessel, [place] or graft Atrial fibrillation, chronic (HCC) Atrial [...] hypertension Mixed hyperlipidemia Coronary artery disease involving [place] coronary artery of [place] heart without angina pectoris Atrial fibrillation, chronic [...] disorders of bladder documented in this encounter [facility] note* Diagnosis Encounter for support and coordination of transition of care- Primary Rectal cancer (HCC) Malignant neoplasm of rectum Primary hypertension Unspecified essential hypertension Coronary artery disease involving [place] coronary artery of [place] heart without angina pectoris Pacemaker Cardiac pacemaker in situ Atrial fibrillation, unspecified type (HCC) Other hyperlipidemia On mechanically assisted ventilation (HCC) Postoperative pain Other acute postoperative pain Rectal cancer (HCC) Malignant neoplasm of rectum Coronary artery disease Coronary atherosclerosis of unspecified type of vessel, [place] or graft Atrial fibrillation, chronic (HCC) Atrial [...] disorders of bladder documented in this encounter [facility] note* Diagnosis Encounter for support and coordination of transition of care- Primary Rectal cancer (HCC) Malignant neoplasm of rectum Primary hypertension Unspecified essential hypertension Coronary artery disease involving [place] coronary artery of [place] heart without angina pectoris Pacemaker Cardiac pacemaker in situ Atrial fibrillation, unspecified type (HCC) Other hyperlipidemia On mechanically assisted ventilation (HCC) Postoperative pain Other acute postoperative pain Rectal cancer (HCC) Malignant neoplasm of rectum Coronary artery disease Coronary atherosclerosis of unspecified type of vessel, [place] or graft Atrial fibrillation, chronic (HCC) Atrial [...] unspecified genitourinary condition [facility] Diagnosis Encounter for support and coordination of transition of care- Primary Rectal cancer (HCC) Malignant neoplasm of rectum Primary hypertension Unspecified essential hypertension Coronary artery disease involving [place] coronary artery of [place] heart without angina pectoris Pacemaker Cardiac pacemaker in situ Atrial fibrillation, unspecified type (HCC) Other hyperlipidemia On mechanically assisted ventilation (HCC) Postoperative pain Other acute postoperative pain Rectal cancer (HCC) Malignant neoplasm of rectum Coronary artery disease Coronary atherosclerosis of unspecified type of vessel, [place] or graft Atrial fibrillation, chronic (HCC) Atrial [...] neoplasm of rectum [facility] Diagnosis Encounter for support and coordination of transition of care- Primary Rectal cancer (HCC) Malignant neoplasm of rectum Primary hypertension Unspecified essential hypertension Coronary artery disease involving [place] coronary artery of [place] heart without angina pectoris Pacemaker Cardiac pacemaker in situ Atrial fibrillation, unspecified type (HCC) Other hyperlipidemia On mechanically assisted ventilation (HCC) Postoperative pain Other acute postoperative pain Rectal cancer (HCC) Malignant neoplasm of rectum Coronary artery disease Coronary atherosclerosis of unspecified type of vessel, [place] or graft Atrial fibrillation, chronic (HCC) Atrial [...] neoplasm of rectum [facility] Diagnosis Encounter for support and coordination of transition of care- Primary Rectal cancer (HCC) Malignant neoplasm of rectum Primary hypertension Unspecified essential hypertension Coronary artery disease involving [place] coronary artery of [place] heart without angina pectoris Pacemaker Cardiac pacemaker in situ Atrial fibrillation, unspecified type (HCC) Other hyperlipidemia On mechanically assisted ventilation (HCC) Postoperative pain Other acute postoperative pain Rectal cancer (HCC) Malignant neoplasm of rectum Coronary artery disease Coronary atherosclerosis of unspecified type of vessel, [place] or graft Atrial fibrillation, chronic (HCC) Atrial [...] heart failure, unspecified Hypervolemia Other fluid overload ETJ (obstructive sleep apnea) Obstructive sleep apnea (adult) (pediatric) Obesity, Class II, BMI 35-39.9 Obesity, unspecified Malignant neoplasm of overlapping sites of bladder (HCC)- Primary Malignant neoplasm of other specified sites of bladder [facility] Diagnosis Encounter for support and coordination of transition of care- Primary Rectal cancer (HCC) Malignant neoplasm of rectum Primary hypertension Unspecified essential hypertension Coronary artery disease involving [place] coronary artery of [place] heart without angina pectoris Pacemaker Cardiac pacemaker in situ Atrial fibrillation, unspecified type (HCC) Other hyperlipidemia On mechanically assisted ventilation (HCC) Postoperative pain Other acute postoperative pain Rectal cancer (HCC) Malignant neoplasm of rectum Coronary artery disease Coronary atherosclerosis of unspecified type of vessel, [place] or graft Atrial fibrillation, chronic (HCC) Atrial [...] neoplasm of rectum documented in this encounter [facility] note* Diagnosis Encounter for support and coordination of transition of care- Primary Rectal cancer (HCC) Malignant neoplasm of rectum Primary hypertension Unspecified essential hypertension Coronary artery disease involving [place] coronary artery of [place] heart without angina pectoris Pacemaker Cardiac pacemaker in situ Atrial fibrillation, unspecified type (HCC) Other hyperlipidemia On mechanically assisted ventilation (HCC) Postoperative pain Other acute postoperative pain Rectal cancer (HCC) Malignant neoplasm of rectum Coronary artery disease Coronary atherosclerosis of unspecified type of vessel, [place] or graft Atrial fibrillation, chronic (HCC) Atrial [...] neoplasm of rectum documented in this encounter [facility] note* Diagnosis Encounter for support and coordination of transition of care- Primary Rectal cancer (HCC) Malignant neoplasm of rectum Primary hypertension Unspecified essential hypertension Coronary artery disease involving [place] coronary artery of [place] heart without angina pectoris Pacemaker Cardiac pacemaker in situ Atrial fibrillation, unspecified type (HCC) Other hyperlipidemia On mechanically assisted ventilation (HCC) Postoperative pain Other acute postoperative pain Rectal cancer (HCC) Malignant neoplasm of rectum Coronary artery disease Coronary atherosclerosis of unspecified type of vessel, [place] or graft Atrial fibrillation, chronic (HCC) Atrial [...] neoplasm of rectum documented in this encounter [facility] note* Diagnosis Encounter for support and coordination of transition of care- Primary Rectal cancer (HCC) Malignant neoplasm of rectum Primary hypertension Unspecified essential hypertension Coronary artery disease involving [place] coronary artery of [place] heart without angina pectoris Pacemaker Cardiac pacemaker in situ Atrial fibrillation, unspecified type (HCC) Other hyperlipidemia On mechanically assisted ventilation (HCC) Postoperative pain Other acute postoperative pain Rectal cancer (HCC) Malignant neoplasm of rectum Coronary artery disease Coronary atherosclerosis of unspecified type of vessel, [place] or graft Atrial fibrillation, chronic (HCC) Atrial [...] neoplasm of rectum documented in this encounter [facility] note* Diagnosis Encounter for support and coordination of transition of care- Primary Rectal cancer (HCC) Malignant neoplasm of rectum Primary hypertension Unspecified essential hypertension Coronary artery disease involving [place] coronary artery of [place] heart without angina pectoris Pacemaker Cardiac pacemaker in situ Atrial fibrillation, unspecified type (HCC) Other hyperlipidemia On mechanically assisted ventilation (HCC) Postoperative pain Other acute postoperative pain Rectal cancer (HCC) Malignant neoplasm of rectum Coronary artery disease Coronary atherosclerosis of unspecified type of vessel, [place] or graft Atrial fibrillation, chronic (HCC) Atrial [...] neoplasm of rectum [facility] Diagnosis Encounter for support and coordination of transition of care- Primary Rectal cancer (HCC) Malignant neoplasm of rectum Primary hypertension Unspecified essential hypertension Coronary artery disease involving [place] coronary artery of [place] heart without angina pectoris Pacemaker Cardiac pacemaker in situ Atrial fibrillation, unspecified type (HCC) Other hyperlipidemia On mechanically assisted ventilation (HCC) Postoperative pain Other acute postoperative pain Rectal cancer (HCC) Malignant neoplasm of rectum Coronary artery disease Coronary atherosclerosis of unspecified type of vessel, [place] or graft Atrial fibrillation, chronic (HCC) Atrial [...] neoplasm of rectum [facility] Diagnosis Encounter for support and coordination of transition of care- Primary Rectal cancer (HCC) Malignant neoplasm of rectum Primary hypertension Unspecified essential hypertension Coronary artery disease involving [place] coronary artery of [place] heart without angina pectoris Pacemaker Cardiac pacemaker in situ Atrial fibrillation, unspecified type (HCC) Other hyperlipidemia On mechanically assisted ventilation (HCC) Postoperative pain Other acute postoperative pain Rectal cancer (HCC) Malignant neoplasm of rectum Coronary artery disease Coronary atherosclerosis of unspecified type of vessel, [place] or graft Atrial fibrillation, chronic (HCC) Atrial [...] NO SHOW- Primary documented in this encounter [facility] for referral (narrative)* Outpatient Procedure (Routine) - AuthorizedSpecialtyDiagnoses / ProceduresReferred By ContactReferred To [facility] Diagnoses Surgery follow-up Procedures ECG COMPLETE ECG ROUTINE ECG W/LEAST 12 LDS W/I&R Masood Wilder MD [address] [place] [address] [facility] [place] [address] [place] [address] Referral IDStatusReasonStart DateExpiration DateVisits RequestedVisits [id number] Auto-Generated Referral / [facility] Summary Purpose Family History No Family History Records FoundNo Family History Records FoundNo Family History Records FoundNo Family History Records FoundNo Family History Records FoundNo Family History Records FoundNo Family History Records FoundNo Family History Records Found Advance Directives No Advanced Directives Records FoundDocuments on File TypeDate RecordedPatient RepresentativeExplanationAdvance Directive(s)06/18/2024 7:47 AMTypeDate RecordedPatient RepresentativeExplanationAdvance Directive(s) 06/18/2024 7:47 AM Reason for Referral SpecialtyDiagnoses / ProceduresReferred By ContactReferred To ContactOncology Diagnoses Rectal cancer (HCC) Procedures CONSULT TO ONCOLOGY OFFICE/OUTPATIENT [facility] 60 MINUTES Jeremie Coyne MD [facility] [place] [address] Referral IDStatusReasonStart DateExpiration DateVisits RequestedVisits [id number] PCP Requested Referral [id number] / ProceduresReferred By ContactReferred To ContactRadiation Oncology Diagnoses Rectal cancer (HCC) Procedures RAD/ONC CONSULT OFFICE/OUTPATIENT [facility] 60 MINUTES Jeremie Coyne MD [address] [place] [address] Referral IDStatusReasonStart DateExpiration DateVisits RequestedVisits [id number] PCP Requested Referral [id number] / ProceduresReferred By ContactReferred To ContactCT IMAGING Diagnoses Rectal cancer (HCC) Procedures CT CHEST W IVCON DIAGNOSTIC COMPUTED TOMOGRAPHY THORAX W/CONTRAST Fred Gonzalez MD [address] [place] [address] [place] [address] [facility] [place] [address] Referral IDStatusReasonStart DateExpiration DateVisits RequestedVisits [id number] Auto-Generated Referral /[id number] / ProceduresReferred By ContactReferred To ContactCT IMAGING Diagnoses Rectal cancer (HCC) Procedures CT ABD/PEL W IVCON CT ABD & PELVIS W/CONTRAST Fred Gonzalez MD [address] [place] [address] [place] [id number] [facility] [place] [address] Referral IDStatusReasonStart DateExpiration DateVisits RequestedVisits [id number] Auto-Generated Referral [id number] / ProceduresReferred By ContactReferred To Contact Diagnoses Rectal cancer (HCC) Bladder mass Procedures REFER TO [facility] PREOPERATIVE OPTIMIZATION OFFICE/OUTPATIENT [facility] 60 MINUTES [place] [address] Referral IDStatusReasonStart DateExpiration DateVisits RequestedVisits [id number] PCP Requested Referral /[id number] / ProceduresReferred By ContactReferred To Contact Diagnoses Rectal cancer (HCC) Procedures CT SIM PLANNING RADIATION ONCOLOGY THER RAD SIMULAJ-AIDED FIELD SETTING COMPLEX Noah Harrison MD [address] [place] [address] [place] [address] Referral IDStatusReasonStart DateExpiration DateVisits RequestedVisits [id number] Request PCP Requested Referral / Additional Source Comments (unrecognized sect ion and content) No Status Records FoundNo Status Records FoundNo Status Records FoundNo Status Records FoundNo Status Records FoundNo Status Records FoundNo Status Records FoundNo Status Records Found INFORMATION SOURCE (unrecogn ized section and content) DATE CREATED AUTHOR 01/29/2022 [facility] DATE CREATED AUTHOR AUTHOR'S ORGANIZ ATION 04/23/2022 [facility] DATE CREATED AUTHOR AUTHOR'S ORGANIZ ATION 01/18/2023 [facility] DATE CREATED AUTHOR AUTHOR'S ORGANIZ ATION 04/05/2024 [facility] DATE CREATED AUTHOR AUTHOR'S ORGANIZ ATION 05/08/2024 [facility] DATE CREATED AUTHOR AUTHOR'S ORGANIZ ATION 08/20/2024 [facility] DATE CREATED AUTHOR AUTHOR'S ORGANIZ ATION 12/31/2024 [facility] DATE CREATED AUTHOR AUTHOR'S ORGANIZ ATION 09/12/2025 [facility] Source Comments (unrecognize d section and content) In the event this informatio n is protected by the Federal Confidentiality of Alcohol and Drug Abuse Patient Records regulations: The Federal rules restrict any use of the information to criminally investigate or prosecute any alcohol or drug abuse patient.[facility]edoIn the event this information is protected by the Federal Confidentiality of Alcohol and Drug Abuse Patient Records regulations: The Federal rules restrict any use of the information to criminally investigate or prosecute any alcohol or drug abuse patient.[facility]edoIn the event this information is protected by the Federal Confidentiality of Alcohol and Drug Abuse Patient Records regulations: The Federal rules restrict any use of the information to criminally investigate or prosecute any alcohol or drug abuse patient.[facility]edoIn the event this information is protected by the Federal Confidentiality of Alcohol and Drug Abuse Patient Records regulations: The Federal rules restrict any use of the information to criminally investigate or prosecute any alcohol or drug abuse patient.[facility]edoIn the event this information is protected by the Federal Confidentiality of Alcohol and Drug Abuse Patient Records regulations: The Federal rules restrict any use of the information to criminally investigate or prosecute any alcohol or drug abuse patient.[facility]edoIn the event this information is protected by the Federal Confidentiality of Alcohol and Drug Abuse Patient Records regulations: The Federal rules restrict any use of the information to criminally investigate or prosecute any alcohol or drug abuse patient.[facility]edoIn the event this information is protected by the Federal Confidentiality of Alcohol and Drug Abuse Patient Records regulations: The Federal rules restrict any use of the information to criminally investigate or prosecute any alcohol or drug abuse patient.[facility]edoIn the event this information is protected by the Federal Confidentiality of Alcohol and Drug Abuse Patient Records regulations: The Federal rules restrict any use of the information to criminally investigate or prosecute any alcohol or drug abuse patient.[facility]edoIn the event this information is protected by the Federal Confidentiality of Alcohol and Drug Abuse Patient Records regulations: The Federal rules restrict any use of the information to criminally investigate or prosecute any alcohol or drug abuse patient.[facility]edoIn the event this information is protected by the Federal Confidentiality of Alcohol and Drug Abuse Patient Records regulations: The Federal rules restrict any use of the information to criminally investigate or prosecute any alcohol or drug abuse patient.[facility]edoIn the event this information is protected by the Federal Confidentiality of Alcohol and Drug Abuse Patient Records regulations: The Federal rules restrict any use of the information to criminally investigate or prosecute any alcohol or drug abuse patient.[facility]edoIn the event this information is protected by the Federal Confidentiality of Alcohol and Drug Abuse Patient Records regulations: The Federal rules restrict any use of the information to criminally investigate or prosecute any alcohol or drug abuse patient.[facility]edoIn the event this information is protected by the Federal Confidentiality of Alcohol and Drug Abuse Patient Records regulations: The Federal rules restrict any use of the information to criminally investigate or prosecute any alcohol or drug abuse patient.[facility]edoIn the event this information is protected by the Federal Confidentiality of Alcohol and Drug Abuse Patient Records regulations: The Federal rules restrict any use of the information to criminally investigate or prosecute any alcohol or drug abuse patient.[facility]edoIn the event this information is protected by the Federal Confidentiality of Alcohol and Drug Abuse Patient Records regulations: The Federal rules restrict any use of the information to criminally investigate or prosecute any alcohol or drug abuse patient.[facility]edoIn the event this information is protected by the Federal Confidentiality of Alcohol and Drug Abuse Patient Records regulations: The Federal rules restrict any use of the information to criminally investigate or prosecute any alcohol or drug abuse patient.[facility]edoIn the event this information is protected by the Federal Confidentiality of Alcohol and Drug Abuse Patient Records regulations: The Federal rules restrict any use of the information to criminally investigate or prosecute any alcohol or drug abuse patient.[facility]edoIn the event this information is protected by the Federal Confidentiality of Alcohol and Drug Abuse Patient Records regulations: The Federal rules restrict any use of the information to criminally investigate or prosecute any alcohol or drug abuse patient.[facility]edoIn the event this information is protected by the Federal Confidentiality of Alcohol and Drug Abuse Patient Records regulations: The Federal rules restrict any use of the information to criminally investigate or prosecute any alcohol or drug abuse patient.[facility]edoIn the event this information is protected by the Federal Confidentiality of Alcohol and Drug Abuse Patient Records regulations: The Federal rules restrict any use of the information to criminally investigate or prosecute any alcohol or drug abuse patient.[facility]edoIn the event this information is protected by the Federal Confidentiality of Alcohol and Drug Abuse Patient Records regulations: The Federal rules restrict any use of the information to criminally investigate or prosecute any alcohol or drug abuse patient.[facility]edoIn the event this information is protected by the Federal Confidentiality of Alcohol and Drug Abuse Patient Records regulations: The Federal rules restrict any use of the information to criminally investigate or prosecute any alcohol or drug abuse patient.[facility]edoIn the event this information is protected by the Federal Confidentiality of Alcohol and Drug Abuse Patient Records regulations: The Federal rules restrict any use of the information to criminally investigate or prosecute any alcohol or drug abuse patient.[facility]edoIn the event this information is protected by the Federal Confidentiality of Alcohol and Drug Abuse Patient Records regulations: The Federal rules restrict any use of the information to criminally investigate or prosecute any alcohol or drug abuse patient.[facility]edoIn the event this information is protected by the Federal Confidentiality of Alcohol and Drug Abuse Patient Records regulations: The Federal rules restrict any use of the information to criminally investigate or prosecute any alcohol or drug abuse patient.[facility]edoIn the event this information is protected by the Federal Confidentiality of Alcohol and Drug Abuse Patient Records regulations: The Federal rules restrict any use of the information to criminally investigate or prosecute any alcohol or drug abuse patient.[facility]edoIn the event this information is protected by the Federal Confidentiality of Alcohol and Drug Abuse Patient Records regulations: The Federal rules restrict any use of the information to criminally investigate or prosecute any alcohol or drug abuse patient.[facility]edoIn the event this information is protected by the Federal Confidentiality of Alcohol and Drug Abuse Patient Records regulations: The Federal rules restrict any use of the information to criminally investigate or prosecute any alcohol or drug abuse patient.[facility]edoIn the event this information is protected by the Federal Confidentiality of Alcohol and Drug Abuse Patient Records regulations: The Federal rules restrict any use of the information to criminally investigate or prosecute any alcohol or drug abuse patient.[facility]edoIn the event this information is protected by the Federal Confidentiality of Alcohol and Drug Abuse Patient Records regulations: The Federal rules restrict any use of the information to criminally investigate or prosecute any alcohol or drug abuse patient.[facility]edoIn the event this information is protected by the Federal Confidentiality of Alcohol and Drug Abuse Patient Records regulations: The Federal rules restrict any use of the information to criminally investigate or prosecute any alcohol or drug abuse patient.[facility]edoIn the event this information is protected by the Federal Confidentiality of Alcohol and Drug Abuse Patient Records regulations: The Federal rules restrict any use of the information to criminally investigate or prosecute any alcohol or drug abuse patient.[facility]edoIn the event this information is protected by the Federal Confidentiality of Alcohol and Drug Abuse Patient Records regulations: The Federal rules restrict any use of the information to criminally investigate or prosecute any alcohol or drug abuse patient.[facility]edoIn the event this information is protected by the Federal Confidentiality of Alcohol and Drug Abuse Patient Records regulations: The Federal rules restrict any use of the information to criminally investigate or prosecute any alcohol or drug abuse patient.[facility]edoIn the event this information is protected by the Federal Confidentiality of Alcohol and Drug Abuse Patient Records regulations: The Federal rules restrict any use of the information to criminally investigate or prosecute any alcohol or drug abuse patient.[facility]edoIn the event this information is protected by the Federal Confidentiality of Alcohol and Drug Abuse Patient Records regulations: The Federal rules restrict any use of the information to criminally investigate or prosecute any alcohol or drug abuse patient.[facility]edoIn the event this information is protected by the Federal Confidentiality of Alcohol and Drug Abuse Patient Records regulations: The Federal rules restrict any use of the information to criminally investigate or prosecute any alcohol or drug abuse patient.[facility]edoIn the event this information is protected by the Federal Confidentiality of Alcohol and Drug Abuse Patient Records regulations: The Federal rules restrict any use of the information to criminally investigate or prosecute any alcohol or drug abuse patient.[facility]edoIn the event this information is protected by the Federal Confidentiality of Alcohol and Drug Abuse Patient Records regulations: The Federal rules restrict any use of the information to criminally investigate or prosecute any alcohol or drug abuse patient.[facility]edoIn the event this information is protected by the Federal Confidentiality of Alcohol and Drug Abuse Patient Records regulations: The Federal rules restrict any use of the information to criminally investigate or prosecute any alcohol or drug abuse patient.[facility]edoIn the event this information is protected by the Federal Confidentiality of Alcohol and Drug Abuse Patient Records regulations: The Federal rules restrict any use of the information to criminally investigate or prosecute any alcohol or drug abuse patient.[facility]edoIn the event this information is protected by the Federal Confidentiality of Alcohol and Drug Abuse Patient Records regulations: The Federal rules restrict any use of the information to criminally investigate or prosecute any alcohol or drug abuse patient.[facility] the event this information is protected by the Federal Confidentiality of Alcohol and Drug Abuse Patient Records regulations: The Federal rules restrict any use of the information to criminally investigate or prosecute any alcohol or drug abuse patient.[facility]edoIn the event this information is protected by the Federal Confidentiality of Alcohol and Drug Abuse Patient Records regulations: The Federal rules restrict any use of the information to criminally investigate or prosecute any alcohol or drug abuse patient.[facility]edoIn the event this information is protected by the Federal Confidentiality of Alcohol and Drug Abuse Patient Records regulations: The Federal rules restrict any use of the information to criminally investigate or prosecute any alcohol or drug abuse patient.[facility]edoIn the event this information is protected by the Federal Confidentiality of Alcohol and Drug Abuse Patient Records regulations: The Federal rules restrict any use of the information to criminally investigate or prosecute any alcohol or drug abuse patient.[facility]edoIn the event this information is protected by the Federal Confidentiality of Alcohol and Drug Abuse Patient Records regulations: The Federal rules restrict any use of the information to criminally investigate or prosecute any alcohol or drug abuse patient.[facility] Care Teams (unrecognized sec tion and content) Team MemberRelationshipSpecialtyStart DateEnd Date Elliot Decker MD PCP - GeneralFamily Medicine12/19/11 Kina Ernst MD [address] [phone] Colon and Rectal Surgery06/19/24Team MemberRelationshipSpecialtyStart DateEnd Date Elliot Decker MD PCP - GeneralFamily Medicine12/19/11 Kina Ernst MD [address] [phone] Colon and Rectal Surgery06/19/24Team MemberRelationshipSpecialtyStart DateEnd Date [facility] - [facility]11 Kina Ernst MD [address] [address] Colon and Rectal Surgery06/19/24Team MemberRelationshipSpecialtyStart DateEnd Date Elliot De[facility] - [facility]12/19/11 Kina Ernst MD [address] [employer] [address] [address] Colon and Rectal Surgery06/19/24Team MemberRelationshipSpecialtyStart DateEnd Date Elliot De[facility] MD [facility] - [facility]12/19/11 Kina Ernst MD [address] [address] Colon and Rectal Surgery06/19/24Team MemberRelationshipSpecialtyStart DateEnd Date Elliot Decker MD PCP - [facility] Medicine12/19/11 Kina Ernst MD [address] [employer] [address] Colon and Rectal Surgery06/19/24Team MemberRelationshipSpecialtyStart DateEnd Date Elliot Decker MD PCP - GeneralFamily Medicine12/19/11 Kina Ernst MD [address] [employer] [address] [address] Colon and Rectal Surgery06/19/24Team MemberRelationshipSpecialtyStart DateEnd Date Elliot Decker MD PCP - GeneralFamily Medicine12/19/11 Kina Ernst MD [address] [address] Colon and Rectal Surgery06/19/24Team MemberRelationshipSpecialtyStart DateEnd Date Elliot Decker MD PCP - GeneralFamily Medicine12/19/11 Kina Ernst MD [address] [address] Colon and Rectal Surgery06/19/24Team MemberRelationshipSpecialtyStart DateEnd Date Elliot Decker MD PCP - Generalmily Medicine12/19/11 Kina Ernst MD [address] [address] Colon and Rectal Surgery06/19/24Team MemberRelationshipSpecialtyStart DateEnd Date Elliot Decker MD PCP - [facility]12/19/11 Kina Ernst MD [address] [address] Colon and Rectal Surgery06/19/24Team MemberRelationshipSpecialtyStart DateEnd Date Elliot Decker MD PCP - [facility] Medicine12/19/11 Kina Ernst MD [address] [address] Colon and Rectal Surgery06/19/24Team MemberRelationshipSpecialtyStart DateEnd Date Elliot Decker MD PCP - [facility] Medicine12/19/11 Kina Ernst MD [address] [address] Colon and Rectal Surgery06/19/24Team MemberRelationshipSpecialtyStart DateEnd Date Elliot Decker MD PCP - [facility] Medicine12/19/11 Kina Ernst MD [address] [address] Colon and Rectal Surgery06/19/24Team MemberRelationshipSpecialtyStart DateEnd Date Elliot Decker MD PCP - [facility] Medicine12/19/11 Kina Ernst MD [address] [facility] [address] [place] [address] Colon and Rectal Surgery06/19/24Team MemberRelationshipSpecialtyStart DateEnd Elliot Decker MD PCP - [facility] Medicine12/19/11 Kina Ernst MD [address] [facility] [address] [place] [address] Colon and Rectal Surgery06/19/24Team MemberRelationshipSpecialtyStart DateEnd Elliot Decker MD PCP - [facility] Medicine12/19/11 Kina Ernst MD [address] [address] [place] [address] Colon and Rectal Surgery06/19/24Team MemberRelationshipSpecialtyStart DateEnd Elliot Decker MD PCP - [facility] Medicine12/19/11 Kina Ernst MD [address] [place] [address] Colon and Rectal Surgery06/19/24Team MemberRelationshipSpecialtyStart End Elliot Decker MD PCP - [facility] Medicine12/19/11 Kina Ernst MD [address] [employer] [address] [place] [phone]- Colon and Rectal Surgery06/19/24 Abril Gardner RN [address] [facility] [place] [address] Specialty Care CoordinatorHematology/Tokazdub93/18/24 Fred Gonzalez MD [address] [facility] [place] [address] PhysicianHematology/Ounncjbl40/18/24 Jennifer Gonzalez PA-C [address] [facility] [place] [address] Physician AssistantHematology/Dgpodxsw01/18/24Team MemberRelationshipSpecialty Start DateEnd Date Elliot Decker MD [facility] - [facility]12/19/11 Kina Ernst MD [address] [place] [phone] Colon and Rectal Surgery06/19/24 Abril Gardner RN [address] [facility] [place] [address] Specialty Care CoordinatorHematology/Ncctlmcm69/18/24 Fred Gonzalez MD [address] [facility] [place] [address] PhysicianHematology/Nmwthlsd97/18/24 Jennifer Gonzalez PA-C [address] [facility] [place] [address] Physician AssistantHematology/Wpofydzz59/18/24Team MemberRelationshipSpecialty Start DateEnd Date Elliot Decker MD [facility] - [facility]12/19/11 Kina Ernst MD [address] [phone] Colon and Rectal Surgery06/19/24 bAril Gardner RN [address] [facility] [place] [address] Specialty Care CoordinatorHematology/Yxucamvg98/18/24 Fred Gonzalez MD [address] [facility] [address] PhysicianHematology/Zhofzaxi53/18/24 Jennifer Gonzalez PAOsmarC [address] [facility] [place] Physician AssistantHematology/Zybcdinx98/18/24Team MemberRelationshipSpecialty Start DateEnd Date Elliot Decker MD PCP - [facility] Medicine12/19/11 Kina Ernst MD [address] [address] Colon and Rectal Surgery06/19/24 Abril Gardner RN [address] [facility] [place] [address] Specialty Care CoordinatorHematology/Mcstjmfp11/18/24 Fred Gonzalez MD [address] [facility] [place] [address] PhysicianHematology/Zxlkaqap51/18/24 Jennifer Gonzalez PA-C [address] [place] [address] [place] [address] Physician AssistantHematology/Slcopnyr86/18/24Team MemberRelationshipSpecialty Start DateEnd Date Elliot Decker MD PCP - GeneralFamily Medicine12/19/11 Kina Ernst MD [address] [phone] Colon and Rectal Surgery06/19/24 Abril Gardner RN [address] [facility] [place] [address] Specialty Care CoordinatorHematology/Hqtahqcv80/18/24 Fred Gonzalez MD [address] [facility] [address] [place], [facility] PhysicianHematology/Ltrrrvmc58/18/24 Jennifer Gonzalez PA-C [address] [place] [address] [place] [address] Physician AssistantHematology/Nzjzpmkg71/18/24Te MemberRelationshipSpecialty Start DateEnd Date Elliot Decker MD PCP - Generalmily Medicine12/19/11 Kina Ernst MD [address] [address] Colon and Rectal Surgery06/19/24 Abril Gardner RN [address] [facility] [place] [address] Specialty Care CoordinatorHematology/Fbgdhsva23/18/24 Fred Gonzalez MD [address] [facility] [place] [address] PhysicianHematology/Tarxsmhg70/18/24 Jennifer Gonzalez PA-C [address] [facility] [place] [address] Physician AssistantHematology/Vhqarmgk29/18/24Team MemberRelationshipSpecialty Start DateEnd Date Elliot Decker MD PCP - GeneralFami Medicine12/19/11 Kina Ernst MD [address] [phone] Colon and Rectal Surgery06/19/24 Abril Gardner, RN [address] [facility] [place] [address] Specialty Care CoordinatorHematology/Nsctiaee60/18/24 Fred Gonzalez MD [address] [facility] [place] [address] PhysicianHematology/Pdgwqcsl59/18/24 Jennifer Gonzalez PA-C [address] [facility] [place] [address] Physician AssistantHematology/Ksyqbxwu03/18/24Team MemberRelationshipSpecialty Start DateEnd Date Elliot Decker MD [facility] - [facility]12/19/11 Kina Ernst MD [address] [phone] 673- Colon and Rectal Surgery06/19/24 Abril Gardner RN [address] [facility] [place] [address] Specialty Care CoordinatorHematology/Dfzdcvix36/18/24 Fred Gonzalez MD [address] [facility] [place] [address] PhysicianHematology/Xodicivd83/18/24 Jennifer Gonzalez PA-C [address] [facility] [place] [address] Physician AssistantHematology/Tmzxvszg81/18/24Team MemberRelationshipSpecialty Start DateEnd Date Elliot Decker MD [facility] - [facility]12/19/11 Kina Ernst MD [address] [place] [phone] Colon and Rectal Surgery06/19/24 Abril Gardner RN [address] [facility] [place] [address] Specialty Care CoordinatorHematology/Wmwnyllh10/18/24 Fred Gonzalez MD [address] [facility] [place] [address] PhysicianHematology/Qphpneiq98/18/24 Jennifer Gonzalez PA-C [address] [facility] [place] [address] Physician AssistantHematology/Fwbwoixf00/18/24Team MemberRelationshipSpecialty Start DateEnd Date Elliot Decker MD PCP - [facility] Medicine12/19/11 Kina Ernst MD [address] [address] Colon and Rectal Surgery06/19/24 Abril Gardner, [place] [address] [place] [address] Specialty Care CoordinatorHematology/Gowgzwjv60/18/24 Fred Gonzalez MD [address] [place] [address] PhysicianHematology/Zwxeqzoa04/18/24 Jennifer Gonzalez PA-C [address] [facility] [place] [address] Physician AssistantHematology/Sngecywl43/18/24Team MemberRelationshipSpecialty Start DateEnd Date Elliot Decker MD [facility] - [facility]12/19/11 Kina Ernst MD [address] [address] Colon and Rectal Surgery06/19/24 Abril Gardner RN [address] [place] [address] Specialty Care CoordinatorHematology/Ivihyzua59/18/24 Fred Gonzalez MD [address] [place] [address] PhysicianHematology/Rgcipjpq48/18/24 Jennifer Gonzalez PA-C [address] [place] [address] Physician AssistantHematology/Wahorwcz29/18/24Team MemberRelationshipSpecialty Start DateEnd Date Elliot Decker MD PCP - GeneralFamily Medicine12/19/11 Kina Ernst MD [address] [phone] Colon and Rectal Surgery06/19/24 Abril Gardner, RN [address] [place] [address] Specialty Care CoordinatorHematology/Zcamuvmp43/18/24 Fred Gonzalez MD [address] [place] [address] PhysicianHematology/Dnqelken14/18/24 Jennifer Gonzalez PA-C [address] [place] [address] Physician AssistantHematology/Sfeiutnl89/18/24Te MemberRelationshipSpecialty Start DateEnd Date Elliot Decker MD PCP - Generalmily Medicine12/19/11 Kina Ernst MD [address] [address] Colon and Rectal Surgery06/19/24 Abril Gardner, RN [address] [place] [address] Specialty Care CoordinatorHematology/Thsocaci72/18/24 Fred Gonzalez MD [address] [place] [address] PhysicianHematology/Xycwfcxd18/18/24 Jennifer Gonzalez PA-C [address] [facility] [place] [address] Physician AssistantHematology/Lqqcdvaq92/18/24Team MemberRelationshipSpecialty Start DateEnd Date Elliot Decker MD PCP - [facility] Medicine12/19/11 Kina Ernst MD [address] [phone] Colon and Rectal Surgery06/19/24 Abril Gardner RN [address] [place] [address] Specialty Care CoordinatorHematology/Azyqtovq83/18/24 Fred Gonzalez MD [address] [facility] [place] [address] PhysicianHematology/Jdvrmfnj32/18/24 Jennifer Gonzalez PA-C [address] [facility] [facility] [place] [address] Physician AssistantHematology/Zqpqsezt04/18/24Te MemberRelationshipSpecialty Start DateEnd Date Elliot Decker MD PCP - [facility] Medicine12/19/11 Kina Ernst MD [address] [phone] Colon and Rectal Surgery06/19/24 Abril Gardner RN [address] [facility] [place] [address] Specialty Care CoordinatorHematology/Awelhvue67/18/24 Fred Gonzalez MD [address] [facility] [place] [address] PhysicianHematology/Xgzgvvxw49/18/24 Jennifer Gonzalez PA-C [address] [facility] [place] [address] Physician AssistantHematology/Itqetbds30/18/24Team MemberRelationshipSpecialty Start DateEnd Date Elliot Decker MD PCP - [facility] Medicine12/19/11 Kina Ernst MD [address] [place] [phone] Colon and Rectal Surgery06/19/24 Abril Gardner RN [address] [facility] [facility] [place] [address] Specialty Care CoordinatorHematology/Wewwbfsl39/18/24 Fred Gonzalez MD [address] [facility] [place] [address] PhysicianHematology/Kalujjgg74/18/24 Jennifer Gonzalez PA-C [address] [facility] [place] [address] Physician AssistantHematology/Vklmclva63/18/24Team MemberRelationshipSpecialty Start DateEnd Date Elliot Decker MD PCP - [facility] Medicine12/19/11 Kina Ernst MD [address] [phone] Colon and Rectal Surgery06/19/24 Abril Gardner, [place] [address] [place] [address] Specialty Care CoordinatorHematology/Mmhabzdh86/18/24 Fred Gonzalez MD [address] [facility] [place] [address] PhysicianHematology/Dimoawbi57/18/24 Jennifer Gonzalez PA-C [address] [facility] [place] [address] Physician AssistantHematology/Ubxswjij39/18/24Team MemberRelationshipSpecialty Start DateEnd Date Elliot Decker MD PCP - GeneralFamily Medicine12/19/11 Kina Ernst MD [address] [phone] Colon and Rectal Surgery06/19/24 Abril Gardner RN [address] [place] [address] Specialty Care CoordinatorHematology/Kqsoragj96/18/24 Fred Gonzalez MD [address] [place] [address] PhysicianHematology/Uzxiqglm11/18/24 Jennifer Gonzalez PA-C [address] [facility] [place] [address] Physician AssistantHematology/Edyfmvrt99/18/24Team MemberRelationshipSpecialty Start DateEnd Date Elliot Decker MD PCP - Generalmily Medicine12/19/11 Kina Ernst MD [address] [phone] Colon and Rectal Surgery06/19/24 Abril Gardner RN [address] [facility] [place] [address] Specialty Care CoordinatorHematology/Mahhravo67/18/24 Fred Gonzalez MD [address] [facility] [place] [address] PhysicianHematology/Oatytyvo14/18/24 Jennifer Gonzalez PA-C [address] [facility] [place] [address] Physician AssistantHematology/Vvsopene75/18/24 Reason for Visit (unrecogniz ed section and content) ReasonCommentsRadio Main T5SwbukoGhscydzfOccjxjzmmgw PatientReasonCommentsTumor Board GI ColorectalReasonCommentsCystoscopy-1SpecialtyDiagnoses / Procedures Referred By ContactReferred To Contact Diagnoses Rectal cancer (HCC) Procedures CONSULT TO HEMATOLOGY/ONCOLOGY OFFICE/OUTPATIENT [facility] 60 MINUTES Micha Avina MD [address] [place] [address] Referral IDStatusReasonStart DateExpiration DateVisits RequestedVisits [id number] PCP Requested Referral [id number] Coordinator - OtherReasonCommentsPost Nc Program Call - FyiReasonCommentsConsultRectal CancerSpecialtyDiagnoses / ProceduresReferred By ContactReferred To ContactOncology Diagnoses Rectal cancer (HCC) Procedures CONSULT TO ONCOLOGY OFFICE/OUTPATIENT [facility] 60 MINUTES Jeremie Coyne MD [address] [place] [address] Referral IDStatusReasonStart DateExpiration DateVisits RequestedVisits [id number] PCP Requested Referral [id number]drijemKnltuwprv / ProceduresReferred By ContactReferred To ContactRadiation Oncology Diagnoses Rectal cancer (HCC) Procedures RAD/ONC CONSULT OFFICE/OUTPATIENT [facility] 60 MINUTES Micha Avina MD [address] [facility] [place] [address] Referral IDStatusReasonStart DateExpiration DateVisits RequestedVisits [id number] PCP Requested Referral [id number] w/ Dr LukeasonCommentsCare Coordinator - OtherConsult notesReasonCommentsLab OrdersSpecialtyDiagnoses / ProceduresReferred By ContactReferred To ContactRadiation Oncology Diagnoses Rectal cancer (HCC) Procedures RAD/ONC CONSULT OFFICE/OUTPATIENT [facility] 60 MINUTES Jeremie Coyne MD [address] [place] [address] Referral IDStatusReasonStart DateExpiration DateVisits RequestedVisits [id number] PCP Requested Referral /[id number] CTSpecialtyDiagnoses / Procedures Referred By ContactReferred To ContactCT IMAGING Diagnoses Rectal cancer (HCC) Procedures CT ABD/PEL W IVCON CT ABD & PELVIS W/CONTRAST Fred Gonzalez MD [address] [place] [address] [place] [address] [facility] [place] [address] Referral IDStatusReasonStart DateExpiration DateVisits RequestedVisits [id number] Auto-Generated Referral [id number]-Li ExamReasonCommentsPre-Op VisitReason CommentsResultsReasonCommentsRectal CancerReasonCommentsCare Coordination Antiemetics for treatmentReasonCommentsCare CoordinationChemo edReasonComments Future AppointmentReasonCommentsNutrition TelephoneReasonCommentsCare CoordinationBCG treatmentsReasonCommentsFirst Time Treatment EducationReason CommentsMedication UpdatecapecitabineReasonCommentsRadiology NMSpecialty Diagnoses / ProceduresReferred By ContactReferred To ContactMOLECULAR & FUNCTIONAL IMAGING Diagnoses Rectal cancer (HCC) Procedures NM PET/CT SKULL-THIGH INITIAL PET IMAGING CT ATTENUATION SKULL BASE MID-THIGH Noah Harrison MD [address] [place] [address] [place] [address] Molecular & Functional Imaging [address] [place] [address] Referral IDStatusReasonStart DateExpiration DateVisits RequestedVisits [id number] Auto-Generated Referral [id number]bAeidjlCsabgycfJmlkzz UpReason Onset DateCommentsSimulation Request Form4ReasonCommentsPatient Update ReasonCommentsAppointmentPatient UpdateReasonCommentsNo Show FOR RECORDS PERTAINING TO PATIENTS WHO [...] BE BASED ON THE PRIMARY CLINICAL RECORDS. [facility] [facility]. provides no warranty or guarantee of the accuracy or completeness of information in this document.
[2025-09-28 09:35] LABS: Alanine Aminotransferase 15 U/L (16-63); Aspartate Amino Transferase 12 U/L (15-37); Cholesterol 84 mg/dL (<=200); HDL Cholesterol 32 mg/dL (40-60); Triglycerides 91 mg/dL (<=150); VLDL CHOLESTEROL 18.2 mg/dL
== END 2025-09-28 08:55 | disposition home or self-care (01) ==
LOC: LAB 08:57
PROVIDERS: PCP Family Medicine; Visit Provider Internal Medicine Cardiovascular Disease
DX: E78.2 Mixed hyperlipidemia (principal)
CPT/HCPCS: 36415; 80061; 84450; 84460